=== PATIENT | female | born 1975 | race Hispanic/Latino ===

== ENCOUNTER 2017-07-03 07:56 | Emergency (ER) | payer OTHER ==
[~2017-07-03] VITALS: Ht 162.6 cm; Wt 90.7 kg
[2017-07-03] MEDS ORDERED: KETOROLAC TROMETHAMINE 30 MG/ML VIAL IV STA (08:29)
[2017-07-03] MEDS ORDERED: SODIUM CHLORIDE 0.9% 1000ML 1,000 ML IV STA (08:29)
[2017-07-03] MEDS ORDERED: ONDANSETRON HCL INJ 2 MG/ML VIAL IV STA (08:29)
[2017-07-03 08:56] LABS: BILIRUBIN,URINE 1+ (NEGATIVE); CLARITY,URINE HAZY (CLEAR); COLOR,URINE YELLOW (YELLOW); KETONES,URINE NEGATIVE (NEGATIVE); LEUKOCYTE ESTERASE ,URINE TRACE (NEGATIVE); NITRITE,URINE NEGATIVE (NEGATIVE); PROTEIN,URINE DIPSTICK NEGATIVE (NEGATIVE); URINE UROBILINOGEN 0.2 mg/dL (0.2 - 1)
[2017-07-03 09:18] LABS: BASOPHILS % 0.6 % (0.0-1.0); EOSINOPHILS # (AUTO) 0.1 (0.0-0.4); HEMATOCRIT 38.5 % (34.2-44.1); HEMOGLOBIN 12.8 g/dL (12.0-16.0); LYMPHOCYTES # (AUTO) 1.2 (1.0-3.2); LYMPHOCYTES % 24.7 % (18.0-39.1); MEAN CORPUSCULAR HEMOGLOBIN 29.6 pg (28-32); MEAN CORPUSCULAR HGB CONC 33.2 g/dL (31-35); MEAN CORPUSCULAR VOLUME 89.1 fL (81-99); MONOCYTES # (AUTO) 0.3 (0.2-0.8); MONOCYTES % 6.3 % (4.4-11.3); NEUTROPHILS # (AUTO) 3.2 (2.1-6.9); NEUTROPHILS % 66.2 % (38.7-80.0); PLATELET COUNT 269 x10e3/uL (140-360); RED BLOOD COUNT 4.32 x10e6/uL (3.6-5.1); RED CELL DISTRIBUTION WIDTH 13.6 % (11.7-14.4)
[2017-07-03 09:19] LABS: BACTERIA,URINE MODERATE /HPF; EPITHELIAL CELLS,URINE FEW /LPF; WBC,URINE (MAN) 0-5 /HPF (0-5)
[2017-07-03 09:35] LABS: ALANINE AMINOTRANSFERASE 15 IU/L (0-55); ALBUMIN 3.8 g/dL (3.5-5.0); ALBUMIN/GLOBULIN RATIO 1.3 (0.8-2.0); ALKALINE PHOSPHATASE 81 IU/L (40-150); ANION GAP 11.9 mmol/L (8-16); BLOOD UREA NITROGEN 12 mg/dL (7-26); BUN/CREATININE RATIO 13 (6-25); CALCIUM 8.8 mg/dL (8.4-10.2); CARBON DIOXIDE 22 mmol/L (22-29); CHLORIDE 110 mmol/L (98-107); CREATININE, SERUM 0.96 mg/dL (0.57-1.11); EST GLOMERULAR FILTRATION RATE > 60 ML/MIN (60-); GLUCOSE 95 mg/dL (74-118); POTASSIUM 3.9 mmol/L (3.5-5.1); SODIUM 140 mmol/L (136-145)
[2017-07-03] MEDS ORDERED: MORPHINE SULFATE 2 MG/ML SYR IV STA (09:54)
--- NOTE | 2017-07-03 10:18 | Diagnostic Imaging Report ---
PROCEDURE: CT ABDOMEN AND PELVIS WITHOUT CONTRAST TECHNIQUE: The abdomen and pelvis were scanned utilizing a multidetector helical scanner from the diaphragm to the lesser trochanter. No intravenous or oral contrast was administered as per physician request. Coronal and sagittal multiplanar reformations were obtained. COMPARISON: CT abdomen and pelvis 11/24/2016. INDICATIONS: RIGHT FLANK PAIN FINDINGS: ABSENCE OF INTRAVENOUS CONTRAST DECREASES SENSITIVITY FOR DETECTION OF FOCAL LESIONS AND VASCULAR PATHOLOGY. LOWER THORAX: Normal. HEPATOBILIARY: No focal hepatic lesions. No biliary ductal dilatation. Cholecystectomy. SPLEEN: No splenomegaly. PANCREAS: No focal masses or ductal dilatation. ADRENALS: No adrenal nodules. KIDNEYS/URETERS: No hydronephrosis, obstructing calculi, or solid mass lesions. The punctate calculi are present bilaterally. Stable left renal cysts. PELVIC ORGANS/BLADDER: Hysterectomy. Normal ovaries. Normal urinary bladder. PERITONEUM / RETROPERITONEUM: No free air or fluid. LYMPH NODES: No lymphadenopathy. VESSELS: Unremarkable. GI TRACT: No distention or wall thickening. Normal appendix. Moderate amount of retained feces limits intraluminally evaluation of the colon. BONES AND SOFT TISSUES: Unremarkable. IMPRESSION: Bilateral nonobstructing nephrolithiasis. Dictated by: Donnell Najera M.D. on 07/03/2017 at 10:27 Electronically approved by: Donnell Najera M.D. on 07/03/2017 at 10:27
[2017-07-03 11:06] VITALS: BP 119/65
== END 2017-07-03 11:17 | disposition home or self-care (01) ==
LOC: ER 07:56
DX: R10.31 Right lower quadrant pain (principal); N20.0 Calculus of kidney; N39.0 Urinary tract infection, site not specified
CPT/HCPCS: 36415; 74176; 80053; 81001; 81025; 85025; 87086; 87186; 99284; J1885; J2270; J2405; J7030

== ENCOUNTER 2017-07-30 08:25 | Emergency (ER) | payer OTHER ==
[~2017-07-30] VITALS: Ht 162.6 cm; Wt 95.3 kg
--- OUTSIDE RECORDS SUMMARY | 2017-07-30 08:27 | XMS REPORT ---
[facility] Address Unknown Phone Unavailable Care Team Providers Care Director Of Leadership Development Name Role Phone MARTA BARROW Unavailable Unavailable Problems This patient has no known problems. Allergies, Adverse Reactions, Alerts This patient has no known allergies or adverse reactions. Medications This patient has no known medications. Results Test Description Test Time Test Comments Text Results Atomic Results Result Comments CT ABDOMEN/PELVIS WO [place] [address] Patient Name: ANGELA ESPINOSA MR #: [id number] : 1975 Age/Sex: 41/F Req #: [id number] Adm Physician: Ordered by: MARTA BARROW MD Report #: [id number] Location: ER Room/Bed: Procedure: [id number] CT/CT ABDOMEN/PELVIS WO Exam Date: 07/03/17 Exam Time: 0920 REPORT STATUS: Signed PROCEDURE: CT ABDOMEN AND PELVIS WITHOUT CONTRAST TECHNIQUE: The abdomen and pelvis were scanned utilizing a multidetector helical scanner from the diaphragm to the lesser trochanter. No intravenous or oral contrast was administered as per physician request. Coronal and sagittal multiplanar reformations were obtained. COMPARISON: CT abdomen and pelvis 11/24/2016. INDICATIONS: RIGHT FLANK PAIN FINDINGS: ABSENCE OF INTRAVENOUS CONTRAST DECREASES SENSITIVITY FOR DETECTION OF FOCAL LESIONS AND VASCULAR PATHOLOGY. LOWER THORAX: Normal. HEPATOBILIARY: No focal hepatic lesions. No biliary ductal dilatation. Cholecystectomy. SPLEEN: No splenomegaly. PANCREAS: No focal masses or ductal dilatation. ADRENALS: No adrenal nodules. KIDNEYS/URETERS: No hydronephrosis, obstructing calculi, or solid mass lesions. The punctate calculi are present bilaterally. Stable left renal cysts. PELVIC ORGANS/BLADDER: Hysterectomy. Normal ovaries. Normal urinary bladder. PERITONEUM / RETROPERITONEUM: No free air or fluid. LYMPH NODES: No lymphadenopathy. VESSELS: Unremarkable. GI TRACT: No distention or wall thickening. Normal appendix. Moderate amount of retained feces limits intraluminally evaluation of the colon. BONES AND SOFT TISSUES: Unremarkable. IMPRESSION: Bilateral nonobstructing nephrolithiasis. Dictated by: Jarek Harry M.D. on 07/03/2017 at 10:27 Electronically approved by: Jarek Harry M.D. on 07/03/2017 at 10:27 Dictated By: JAREK HARRY MD 1027 Transcribed By: FAVIAN on 07/03/17 1027 COPY TO: MARTA BARROW MD
--- OUTSIDE RECORDS SUMMARY | 2017-07-30 08:27 | XMS REPORT | Continuity of Care Document ---
Author Author [facility] Organization [facility] Address 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 No 05/13/14 9:52am If yes, is advance directive on file with [facility]? No 05/13/14 9:52am If not on file with [facility] will patient provide a copy? No 05/13/14 9:52am Do you have a Directive to Physician? No 07/03/17 8:26am Do you have a Medical Power of Information Systems Security Analyst? No 07/03/17 8:26am Do you have an out of hospital Do Not Resuscitate Order? No 07/03/17 8:26am Do you have any special needs we should be aware of? No 07/03/17 8:26am Do you have a support person here with you today? Yes 07/03/17 8:26am Did patient receive Notice of Privacy Practices? Yes 07/03/17 8:26am Did patient receive patient rights and responsibilities? Yes 07/03/17 8:26am Problems No problem information available. Medications No known medications. Social History Smoking Status Start Date Stop Date Never Smoker Hospital Discharge Instructions No hospital discharge instruction information available. Plan of Care Discharge Date 07/03/17 11:17am Disposition HOME, SELF-CARE Condition at Discharge Stable Instructions/Education Provided Kidney Stones Urinary Tract Infection - Women Forms Provided Work/School Excuse Prescriptions See Medication Section Referrals Sean,Mary Order Date: Call for an appointment Additional Instructions/Education Take medication as prescribed Follow up with PCP in a couple of days Return to ER if worsening of symptoms Functional Status No functional status information available. Allergies, Adverse Reactions, Alerts No known allergies. Immunizations No immunization information available. Vital Signs Acute Vital Signs Vital Response Date/Time Pulse Pulse Rate (adult) 73 bpm (60 - 90) 07/03/2017 11:06am Respiratory Rate 18 bpm (12 - 24) 07/03/2017 11:06am Blood Pressure 119/65 mm Hg 07/03/2017 11:06am Height 5 ft 4 in 07/03/2017 8:12am Weight 200 lb 07/03/2017 8:12am Body Mass Index 34.3 kg/m^2 07/03/2017 8:12am Results Laboratory Results Test Name Result Units Flags Reference Collection Date/Time Result Date/ Time Comments White Blood Count 4.89 x10e3/uL 4.8-10.8 07/03/2017 9:05am 07/03/2017 9 :19am Red Blood Count 4.32 x10e6/uL 3.6-5.1 07/03/2017 9:05am 07/03/2017 9: 19am Hemoglobin 12.8 g/dL 12.0-16.0 07/03/2017 9:05am 07/03/2017 9:19am Hematocrit 38.5 % 34.2-44.1 07/03/2017 9:05am 07/03/2017 9:19am Mean Corpuscular Volume 89.1 fL 81-99 07/03/2017 9:05am 07/03/2017 9: 19am Mean Corpuscular Hemoglobin 29.6 pg 28-32 07/03/2017 9:05am 07/03/2017 9:19am Mean Corpuscular Hemoglobin Concent 33.2 g/dL 31-35 07/03/2017 9:05am 07/03/2017 9:19am Red Cell Distribution Width 13.6 % 11.7-14.4 07/03/2017 9:05am 2017 9:19am Platelet Count 269 x10e3/uL 140-360 07/03/2017 9:05am 07/03/2017 9: 19am Neutrophils (%) (Auto) 66.2 % 38.7-80.0 07/03/2017 9:05am 07/03/2017 9: 19am Lymphocytes (%) (Auto) 24.7 % 18.0-39.1 07/03/2017 9:05am 07/03/2017 9: 19am Monocytes (%) (Auto) 6.3 % 4.4-11.3 07/03/2017 9:05am 07/03/2017 9: 19am Eosinophils (%) (Auto) 2.0 % 0.0-6.0 07/03/2017 9:05am 07/03/2017 9: 19am Basophils (%) (Auto) 0.6 % 0.0-1.0 07/03/2017 9:05am 07/03/2017 9:19am IM GRANULOCYTES % 0.2 % 0.0-1.0 07/03/2017 9:05am 07/03/2017 9:19am Neutrophils # (Auto) 3.2 2.1-6.9 07/03/2017 9:05am 07/03/2017 9:19am Lymphocytes # (Auto) 1.2 1.0-3.2 07/03/2017 9:05am 07/03/2017 9:19am Monocytes # (Auto) 0.3 0.2-0.8 07/03/2017 9:05am 07/03/2017 9:19am Eosinophils # (Auto) 0.1 0.0-0.4 07/03/2017 9:05am 07/03/2017 9:19am Basophils # (Auto) 0.0 0.0-0.1 07/03/2017 9:05am 07/03/2017 9:19am Absolute Immature Granulocyte (auto 0.01 x10e3/uL 0-0.1 07/03/2017 9: 05am 07/03/2017 9:19am Urine Color YELLOW YELLOW 07/03/2017 8:14am 07/03/2017 8:58am Urine Clarity HAZY CLEAR 07/03/2017 8:14am 07/03/2017 8:58am Urine Specific [place] 1.025 1.010-1.025 07/03/2017 8:14am 2017 8:58am Urine pH 5 5 - 7 07/03/2017 8:14am 07/03/2017 8:58am Urine Leukocyte Esterase TRACE H NEGATIVE 07/03/2017 8:14am 2017 8:58am Urine Nitrite NEGATIVE NEGATIVE 07/03/2017 8:14am 07/03/2017 8:58am Urine Protein NEGATIVE NEGATIVE 07/03/2017 8:14am 07/03/2017 8:58am Urine Glucose (UA) NEGATIVE NEGATIVE 07/03/2017 8:14am 07/03/2017 8: 58am Urine Ketones NEGATIVE NEGATIVE 07/03/2017 8:14am 07/03/2017 8:58am Urine Urobilinogen 0.2 mg/dL 0.2 - 1 07/03/2017 8:14am 07/03/2017 8: 58am Urine Bilirubin 1+ H NEGATIVE 07/03/2017 8:14am 07/03/2017 8:58am Urine Blood NEGATIVE NEGATIVE 07/03/2017 8:14am 07/03/2017 8:58am Urine WBC 0-5 /HPF 0-5 07/03/2017 8:14am 07/03/2017 9:20am Urine RBC NONE /HPF 0-5 07/03/2017 8:14am 07/03/2017 9:20am Urine Bacteria MODERATE /HPF H NONE 07/03/2017 8:14am 07/03/2017 9:20am Urine Epithelial Cells FEW /LPF NONE 07/03/2017 8:14am 07/03/2017 9: 20am Urine Test NEGATIVE NEGATIVE 07/03/2017 8:14am 07/03/2017 8 :58am Sodium Level 140 mmol/L 136-145 07/03/2017 9:05am 07/03/2017 9:45am Potassium Level 3.9 mmol/L 3.5-5.1 07/03/2017 9:05am 07/03/2017 9:45am Chloride Level 110 mmol/L H 98-107 07/03/2017 9:05am 07/03/2017 9:45am Carbon Dioxide Level 22 mmol/L 22-29 07/03/2017 9:0507/03/2017 9: 45am Anion Gap 11.9 mmol/L 8-16 07/03/2017 9:0507/03/2017 9:45am Blood Urea Nitrogen 12 mg/dL 7-26 07/03/2017 9:07/03/2017 9:45am Creatinine 0.96 mg/dL 0.57-1.11 07/03/2017 9:0507/03/2017 9:45am BUN/Creatinine Ratio 13 6-25 07/03/2017 9:07/03/2017 9:45am Estimat Glomerular Filtration Rate > 60 ML/MIN 60- 07/03/2017 9: 9:45am Ranges were taken from the National Kidney Disease Education Program and the National Kidney Foundation literature. Reference ranges: 60 or greater: Normal 16-59 (for 3 consecutive months): Chronic kidney disease 15 or less: Kidney failure Glucose Level 95 mg/dL 74-118 07/03/2017 9:07/03/2017 9:45am Calcium Level 8.8 mg/dL 8.4-10.2 07/03/2017 9:07/03/2017 9:45am Total Bilirubin 0.3 mg/dL 0.2-1.2 07/03/2017 9:07/03/2017 9:45am Aspartate Amino Transf (AST/SGOT) 14 IU/L 5-34 07/03/2017 9:2017 9:45am Alanine Aminotransferase (ALT/SGPT) 15 IU/L 0-55 07/03/2017 9:07/2017 9:45am Total Protein 6.7 g/dL 6.5-8.1 07/03/2017 9:07/03/2017 9:45am Albumin 3.8 g/dL 3.5-5.0 07/03/2017 9:07/03/2017 9:45am Globulin 2.9 g/dL 2.3-3.5 07/03/2017 9:07/03/2017 9:45am Albumin/Globulin Ratio 1.3 0.8-2.0 07/03/2017 9:07/03/2017 9: 45am Alkaline Phosphatase 81 IU/L 40-150 07/03/2017 9:05am 07/03/2017 9: 45am Procedures Procedure Status Date Provider(s) CT of abdomen and pelvis without contrast Active 11/24/[address] of abdomen and pelvis without contrast Active 07/03/17 MARTA BARROW MD Encounters Encounter Location Arrival/Admit Date Discharge/Depart Date Attending Provider Departed Emergency Room [facility] 07/03/17 7:56am 11:17am MARTA BARROW MD Departed Emergency Room [facility] 11/24/16 6:59pm 11:11pm MARTA BARROW MD
[2017-07-30] MEDS ORDERED: ONDANSETRON HCL INJ 2 MG/ML VIAL IV STA (09:12)
[2017-07-30] MEDS ORDERED: KETOROLAC TROMETHAMINE 30 MG/ML VIAL IV STA (09:12)
[2017-07-30] MEDS ORDERED: SODIUM CHLORIDE 0.9% 1000ML 1,000 ML IV ONE (09:15)
[2017-07-30 09:26] LABS: BASOPHILS % 0.6 % (0.0-1.0); EOSINOPHILS # (AUTO) 0.2 (0.0-0.4); EOSINOPHILS % 2.3 % (0.0-6.0); HEMATOCRIT 36.8 % (34.2-44.1); HEMOGLOBIN 12.6 g/dL (12.0-16.0); LYMPHOCYTES # (AUTO) 1.3 (1.0-3.2); MEAN CORPUSCULAR HEMOGLOBIN 30.1 pg (28-32); MEAN CORPUSCULAR HGB CONC 34.2 g/dL (31-35); MEAN CORPUSCULAR VOLUME 87.8 fL (81-99); MONOCYTES # (AUTO) 0.3 (0.2-0.8); MONOCYTES % 4.1 % (4.4-11.3); NEUTROPHILS # (AUTO) 4.8 (2.1-6.9); NEUTROPHILS % 72.8 % (38.7-80.0); PLATELET COUNT 272 x10e3/uL (140-360); RED BLOOD COUNT 4.19 x10e6/uL (3.6-5.1); RED CELL DISTRIBUTION WIDTH 13.6 % (11.7-14.4)
[2017-07-30 09:27] LABS: BILIRUBIN,URINE NEGATIVE (NEGATIVE); CLARITY,URINE CLOUDY (CLEAR); COLOR,URINE YELLOW (YELLOW); KETONES,URINE NEGATIVE (NEGATIVE); LEUKOCYTE ESTERASE ,URINE NEGATIVE (NEGATIVE); PROTEIN,URINE DIPSTICK NEGATIVE (NEGATIVE); URINE UROBILINOGEN 0.2 mg/dL (0.2 - 1)
[2017-07-30 09:41] LABS: ALANINE AMINOTRANSFERASE 16 IU/L (0-55); ALBUMIN 3.4 g/dL (3.5-5.0); ALBUMIN/GLOBULIN RATIO 1.1 (0.8-2.0); ALKALINE PHOSPHATASE 86 IU/L (40-150); ANION GAP 14.4 mmol/L (8-16); BLOOD UREA NITROGEN 8 mg/dL (7-26); BUN/CREATININE RATIO 10 (6-25); CALCIUM 8.5 mg/dL (8.4-10.2); CARBON DIOXIDE 22 mmol/L (22-29); CHLORIDE 108 mmol/L (98-107); CREATININE, SERUM 0.84 mg/dL (0.57-1.11); EST GLOMERULAR FILTRATION RATE > 60 ML/MIN (60-); GLUCOSE 172 mg/dL (74-118); POTASSIUM 3.4 mmol/L (3.5-5.1); SODIUM 141 mmol/L (136-145)
[2017-07-30 09:45] LABS: NITRITE,URINE POSITIVE (NEGATIVE)
[2017-07-30 09:53] LABS: BACTERIA,URINE MANY /HPF; EPITHELIAL CELLS,URINE FEW /LPF; RBC,URINE 0-5 /HPF (0-5); TRANSITIONAL EPI CELLS,URINE FEW
--- NOTE | 2017-07-30 10:07 | Diagnostic Imaging Report ---
PROCEDURE: CT ABDOMEN AND PELVIS WITHOUT CONTRAST COMPARISON:[facility], CT, CT ABDOMEN/PELVIS WO, 07/03/2017, 9:15. INDICATIONS:Left-sided back pain with history of renal stones. TECHNIQUE: Stone protocol Volumetric CT abdomen and pelvis. No intravenous or enteric contrast. Multiplanar reformatted images. DLP: 817.87 FINDINGS: Bibasilar subsegmental atelectasis and interstitial scar. Lung bases otherwise clear. No pleural effusions. Normal heart size. Liver: Normal Gallbladder: Cholecystectomy. No bile duct dilation. Pancreas: Normal Spleen: Normal Adrenal glands: Normal Urinary bladder: Normal Uterus and adnexa: Hysterectomy Kidneys: Right: 2 mm stone at the right mid segment. Normal ureter and collecting system. Left: 2 mm to 3 mm stones at the left inferior and mid segments. Questionable tiny (less than 2 mm) high attenuation debris at the left ureterovesicular junction (image 165, series 3) without ureteral obstruction. 1 cm exophytic nodule with attenuation suggesting a simple cyst. Bowel: Normal caliber. Normal appendix. Peritoneum: Normal Vasculature: Normal caliber. Left retroaortic renal vein. Lymph nodes: Normal. Skeleton: Intact. Bone islands at L5. Soft tissues: 1.6 cm fat containing supraumbilical hernia (image 80, series 400); 1 cm right to midline abdominal hernia. Abdominis rectus diastases. Otherwise, normal. CONCLUSION: Bilateral nonobstructive nephrolithiasis. There is questionable calcified debris measuring less than 2 mm in the distal left ureter which may reflect stone debris. No ureteral obstruction. Dictated by: Kirby Britton M.D. on 07/30/2017 at 10:08 Electronically approved by: Kirby Britton M.D. on 07/30/2017 at 10:08
[2017-07-30] MEDS ORDERED: HYDROMORPHONE 1MG/1ML INJ IV STA (10:23)
[2017-07-30] MEDS ORDERED: CIPROFLOXACIN 400 MG/D5W 200ML 200 ML IV STA (10:30)
== END 2017-07-30 11:50 | disposition home or self-care (01) ==
LOC: ER 08:25
DX: R10.32 Left lower quadrant pain (principal); R11.2 Nausea with vomiting, unspecified; N20.1 Calculus of ureter; N30.90 Cystitis, unspecified without hematuria
CPT/HCPCS: 36415; 74176; 80053; 81001; 85025; 96360; 96374; 99284; J0744; J1170; J1885; J2405; J7030

== ENCOUNTER 2017-08-05 08:13 | Emergency (ER) | payer OTHER ==
[~2017-08-05] VITALS: Ht 162.6 cm; Wt 99.8 kg
--- OUTSIDE RECORDS SUMMARY | 2017-08-05 08:16 | XMS REPORT | Continuity of Care Document ---
Author Author [facility] Organization [facility] Address [address] [place] [address] Phone Unavailable Care Team Providers Care Extractive Metallurgist Name Role Phone NONSTAFF PCP Unavailable Insurance Providers Guarantor Angela Espinosa Address [address] [place] [address] Email [email or web address] Payer [employer] Policy Number [id number] Subscriber's Name ArjunAngela Yaron Relationship 18 Self / Same As Patient Effective Date 16 Advance Directives Directive Response Recorded Date/Time Does the patient have an advance directive? No 05/13/14 9:52am If yes, is advance directive on file with [facility]? No 05/13/14 9:52am If not on file with [facility] will patient provide a copy? No 05/13/14 9:52am Do you have a Directive to Physician? No 07/30/17 8:43am Do you have a Medical Power of Insurance Clerk? No 07/30/17 8:43am Do you have an out of hospital Do Not Resuscitate Order? No 07/30/17 8:43am Do you have any special needs we should be aware of? No 07/30/17 8:43am Do you have a support person here with you today? No 07/30/17 8:43am Did patient receive Notice of Privacy Practices? Yes 07/30/17 8:43am Did patient receive patient rights and responsibilities? Yes 07/30/17 8:43am Problems No problem information available. Medications No known medications. Social History Smoking Status Start Date Stop Date Former smoker Hospital Discharge Instructions No hospital discharge instruction information available. Plan of Care Discharge Date 07/30/17 11:50am Disposition HOME, SELF-CARE Condition at Discharge Stable Instructions/Education Provided Abdominal Pain - Adult Forms Provided Work/School Excuse Prescriptions See Medication Section Referrals Sean,Mary Functional Status No functional status information available. Allergies, Adverse Reactions, Alerts No known allergies. Immunizations No immunization information available. Vital Signs Acute Vital Signs Vital Response Date/Time Pulse Pulse Rate (adult) 73 bpm (60 - 90) 07/03/2017 11:06am Respiratory Rate 18 bpm (12 - 24) 07/03/2017 11:06am Blood Pressure 119/65 mm Hg 07/03/2017 11:06am Height 5 ft 4 in 07/30/2017 8:42am Weight 210 lb 07/30/2017 8:42am Body Mass Index 36.0 kg/m^2 07/30/2017 8:42am Results Laboratory Results Test Name Result Units Flags Reference Collection Date/Time Result Date/ Time Comments Urine Test NEGATIVE NEGATIVE 07/03/2017 8:14am 07/03/2017 8 :58am White Blood Count 6.60 x10e3/uL 4.8-10.8 07/30/2017 9:12am 07/30/2017 9 :44am Red Blood Count 4.19 x10e6/uL 3.6-5.1 07/30/2017 9:12am 07/30/2017 9: 44am Hemoglobin 12.6 g/dL 12.0-16.0 07/30/2017 9:1207/30/2017 9:44am Hematocrit 36.8 % 34.2-44.1 07/30/2017 9:1207/30/2017 9:44am Mean Corpuscular Volume 87.8 fL 81-99 07/30/2017 9:12am 07/30/2017 9: 44am Mean Corpuscular Hemoglobin 30.1 pg 28-32 07/30/2017 9:12am 07/30/2017 9:44am Mean Corpuscular Hemoglobin Concent 34.2 g/dL 31-35 07/30/2017 9:12am 07/30/2017 9:44am Red Cell Distribution Width 13.6 % 11.7-14.4 07/30/2017 9:122017 9:44am Platelet Count 272 x10e3/uL 140-360 07/30/2017 9:07/30/2017 9: 44am Neutrophils (%) (Auto) 72.8 % 38.7-80.0 07/30/2017 9:07/30/2017 9: 44am Lymphocytes (%) (Auto) 20.0 % 18.0-39.1 07/30/2017 9:07/30/2017 9: 44am Monocytes (%) (Auto) 4.1 % L 4.4-11.3 07/30/2017 9:07/30/2017 9: 44am Eosinophils (%) (Auto) 2.3 % 0.0-6.0 07/30/2017 9:07/30/2017 9: 44am Basophils (%) (Auto) 0.6 % 0.0-1.0 07/30/2017 9:07/30/2017 9:44am IM GRANULOCYTES % 0.2 % 0.0-1.0 07/30/2017 9:07/30/2017 9:44am Neutrophils # (Auto) 4.8 2.1-6.9 07/30/2017 9:07/30/2017 9:44am Lymphocytes # (Auto) 1.3 1.0-3.2 07/30/2017 9:07/30/2017 9:44am Monocytes # (Auto) 0.3 0.2-0.8 07/30/2017 9:07/30/2017 9:44am Eosinophils # (Auto) 0.2 0.0-0.4 07/30/2017 9:07/30/2017 9:44am Basophils # (Auto) 0.0 0.0-0.1 07/30/2017 9:07/30/2017 9:44am Absolute Immature Granulocyte (auto 0.01 x10e3/uL 0-0.1 07/30/2017 9: 1207/30/2017 9:44am Urine Color YELLOW YELLOW 07/30/2017 9:07/30/2017 9:45am Urine Clarity CLOUDY H CLEAR 07/30/2017 9:1207/30/2017 9:45am Urine Specific [place] 1.020 1.010-1.025 07/30/2017 9:122017 9:45am Urine pH 6 5 - 7 07/30/2017 9:1207/30/2017 9:45am Urine Leukocyte Esterase NEGATIVE NEGATIVE 07/30/2017 9:122017 9:45am Urine Nitrite POSITIVE H NEGATIVE 07/30/2017 9:1207/30/2017 9:45am Urine Protein NEGATIVE NEGATIVE 07/30/2017 9:12am 07/30/2017 9:45am Urine Glucose (UA) NEGATIVE NEGATIVE 07/30/2017 9:1207/30/2017 9: 45am Urine Ketones NEGATIVE NEGATIVE 07/30/2017 9:1207/30/2017 9:45am Urine Urobilinogen 0.2 mg/dL 0.2 - 1 07/30/2017 9:1207/30/2017 9: 45am Urine Bilirubin NEGATIVE NEGATIVE 07/30/2017 9:1207/30/2017 9: 45am Urine Blood NEGATIVE NEGATIVE 07/30/2017 9:1207/30/2017 9:45am Urine WBC 6-10 /HPF H 0-5 07/30/2017 9:1207/30/2017 9:53am Urine RBC 0-5 /HPF 0-5 07/30/2017 9:12am 07/30/2017 9:53am Urine Bacteria MANY /HPF H NONE 07/30/2017 9:1207/30/2017 9:53am Urine Epithelial Cells FEW /LPF NONE 07/30/2017 9:1207/30/2017 9: 53am Urine Transitional Epithelial Cells FEW H NONE 07/30/2017 9:1207/30 9:53am Sodium Level 141 mmol/L 136-145 07/30/2017 9:1207/30/2017 9:43am Potassium Level 3.4 mmol/L L 3.5-5.1 07/30/2017 9:12am 07/30/2017 9: 43am Chloride Level 108 mmol/L H 98-107 07/30/2017 9:12am 07/30/2017 9:43am Carbon Dioxide Level 22 mmol/L 22-29 07/30/2017 9:07/30/2017 9: 43am Anion Gap 14.4 mmol/L 8-16 07/30/2017 9:07/30/2017 9:43am Blood Urea Nitrogen 8 mg/dL 7-07/30/2017 9:07/30/2017 9:43am Creatinine 0.84 mg/dL 0.57-1.11 07/30/2017 9:07/30/2017 9:43am BUN/Creatinine Ratio 10 6-25 07/30/2017 9:07/30/2017 9:43am Estimat Glomerular Filtration Rate > 60 ML/MIN 60- 07/30/2017 9: 9:43am Ranges were taken from the National Kidney Disease Education Program and the National Kidney Foundation literature. Reference ranges: 60 or greater: Normal 16-59 (for 3 consecutive months): Chronic kidney disease 15 or less: Kidney failure Glucose Level 172 mg/dL H 74-118 07/30/2017 9:07/30/2017 9:43am Calcium Level 8.5 mg/dL 8.4-10.2 07/30/2017 9:07/30/2017 9:43am Total Bilirubin 0.3 mg/dL 0.2-1.2 07/30/2017 9:07/30/2017 9:43am Aspartate Amino Transf (AST/SGOT) 12 IU/L 5-34 07/30/2017 9:2017 9:43am Alanine Aminotransferase (ALT/SGPT) 16 IU/L 0-55 07/30/2017 9:06/2017 9:43am Total Protein 6.4 g/dL L 6.5-8.1 07/30/2017 9:07/30/2017 9:43am Albumin 3.4 g/dL L 3.5-5.0 07/30/2017 9:07/30/2017 9:43am Globulin 3.0 g/dL 2.3-3.5 07/30/2017 9:1207/30/2017 9:43am Albumin/Globulin Ratio 1.1 0.8-2.0 07/30/2017 9:07/30/2017 9: 43am Alkaline Phosphatase 86 IU/L 40-150 07/30/2017 9:12am 07/30/2017 9: 43am Microbiology Results Procedure Source Organism/Result Collection Date/Time Result Date/Time Result Status Urine Culture Urine,Clean Catch KLEBSIELLA PNEUMONIAE 07/03/2017 8:14am 7:15am Final Procedures Procedure Status Date Provider(s) CT of abdomen and pelvis without contrast Active 11/24/[address] of abdomen and pelvis without contrast Active 07/03/[address] of abdomen and pelvis without contrast Active 07/30/17 MADELINE MCKEON MD Encounters Encounter Location Arrival/Admit Date Discharge/Depart Date Attending Provider Departed Emergency Room [facility] 07/30/17 8:25am 11:50am MADELINE MCKEON MD Departed Emergency Room [facility] 07/03/17 7:56am 11:17am MARTA BARROW MD Departed Emergency Room [facility] 11/24/16 6:59pm 11:11pm MARTA BARROW MD
[2017-08-05] MEDS ORDERED: KETOROLAC TROMETHAMINE 30 MG/ML VIAL IV STA (09:00)
[2017-08-05 09:20] LABS: BASOPHILS % 0.5 % (0.0-1.0); EOSINOPHILS # (AUTO) 0.1 (0.0-0.4); EOSINOPHILS % 2.4 % (0.0-6.0); HEMATOCRIT 37.8 % (34.2-44.1); HEMOGLOBIN 12.8 g/dL (12.0-16.0); LYMPHOCYTES # (AUTO) 1.5 (1.0-3.2); LYMPHOCYTES % 27.7 % (18.0-39.1); MEAN CORPUSCULAR HEMOGLOBIN 29.8 pg (28-32); MEAN CORPUSCULAR HGB CONC 33.9 g/dL (31-35); MEAN CORPUSCULAR VOLUME 88.1 fL (81-99); MONOCYTES # (AUTO) 0.4 (0.2-0.8); MONOCYTES % 7.4 % (4.4-11.3); NEUTROPHILS # (AUTO) 3.4 (2.1-6.9); NEUTROPHILS % 61.6 % (38.7-80.0); PLATELET COUNT 249 x10e3/uL (140-360); RED BLOOD COUNT 4.29 x10e6/uL (3.6-5.1); RED CELL DISTRIBUTION WIDTH 13.3 % (11.7-14.4)
[2017-08-05 09:28] LABS: BILIRUBIN,URINE NEGATIVE (NEGATIVE); CLARITY,URINE CLEAR (CLEAR); COLOR,URINE YELLOW (YELLOW); KETONES,URINE NEGATIVE (NEGATIVE); LEUKOCYTE ESTERASE ,URINE NEGATIVE (NEGATIVE); NITRITE,URINE NEGATIVE (NEGATIVE); PROTEIN,URINE DIPSTICK NEGATIVE (NEGATIVE); URINE UROBILINOGEN 0.2 mg/dL (0.2 - 1)
[2017-08-05 09:33] LABS: ANION GAP 13.5 mmol/L (8-16); BLOOD UREA NITROGEN 12 mg/dL (7-26); BUN/CREATININE RATIO 13 (6-25); CALCIUM 8.5 mg/dL (8.4-10.2); CARBON DIOXIDE 20 mmol/L (22-29); CHLORIDE 110 mmol/L (98-107); CREATININE, SERUM 0.89 mg/dL (0.57-1.11); EST GLOMERULAR FILTRATION RATE > 60 ML/MIN (60-); GLUCOSE 86 mg/dL (74-118); POTASSIUM 3.5 mmol/L (3.5-5.1); SODIUM 140 mmol/L (136-145)
[2017-08-05 09:46] LABS: EPITHELIAL CELLS,URINE RARE /LPF; TRANSITIONAL EPI CELLS,URINE RARE; WBC,URINE (MAN) 0-5 /HPF (0-5)
[2017-08-05] MEDS ORDERED: ONDANSETRON HCL INJ 2 MG/ML VIAL IV STA (09:52)
[2017-08-05] MEDS ORDERED: MORPHINE SULFATE 2 MG/ML SYR IV STA (09:52)
--- NOTE | 2017-08-05 10:01 | Diagnostic Imaging Report ---
PROCEDURE: CT ABDOMEN AND PELVIS WITHOUT CONTRAST TECHNIQUE: The abdomen and pelvis were scanned utilizing a multidetector helical scanner from the diaphragm to the lesser trochanter. No IV contrast was administered as per physician request. Coronal and sagittal multiplanar reformations were obtained. COMPARISON: CT abdomen and pelvis 07/30/2017. INDICATIONS: KIDNEY STONES RIGHT SIDE FINDINGS: ABSENCE OF INTRAVENOUS CONTRAST DECREASES SENSITIVITY FOR DETECTION OF FOCAL LESIONS AND VASCULAR PATHOLOGY. LOWER THORAX: Left lung base atelectasis. HEPATOBILIARY: No focal hepatic lesions. No biliary ductal dilatation. Cholecystectomy. SPLEEN: No splenomegaly. PANCREAS: No focal masses or ductal dilatation. ADRENALS: No adrenal nodules. KIDNEYS/URETERS: No hydronephrosis, stones, or solid mass lesions. Multiple cysts are present in the left kidney. Punctate calculus is present in the inferior pole of the right kidney. Two separate calculi are present in the inferior pole of the left kidney, the largest measuring 3.0 mm. PELVIC ORGANS/BLADDER: Hysterectomy. Bilateral small ovarian cysts. Normal urinary bladder. PERITONEUM / RETROPERITONEUM: No free air or fluid. LYMPH NODES: No lymphadenopathy. VESSELS: Retroaortic left renal vein. GI TRACT: No distention or wall thickening. The appendix is normal. Moderate amount of retained feces limits intraluminal evaluation of the colon. BONES AND SOFT TISSUES: Normal. IMPRESSION: Bilateral nonobstructive nephrolithiasis. Dictated by: Donnell Najera M.D. on 08/05/2017 at 10:01 Electronically approved by: Donnell Najera M.D. on 08/05/2017 at 10:01
[2017-08-05 11:22] VITALS: BP 116/76
[2017-08-05] MEDS ORDERED: DICYCLOMINE HCL 20 MG/2 ML VIAL IM ONE (11:30)
== END 2017-08-05 12:28 | disposition home or self-care (01) ==
LOC: ER 08:13
DX: M54.5 Low back pain (principal); R11.2 Nausea with vomiting, unspecified; R10.31 Right lower quadrant pain; S39.012A Strain of muscle, fascia and tendon of lower back, initial encounter
CPT/HCPCS: 36415; 74176; 80048; 81001; 85025; 96374; 99284; J0500; J1885; J2270; J2405

== ENCOUNTER 2017-08-20 08:01 | Inpatient (IN) | payer OTHER ==
[~2017-08-20] VITALS: Ht 162.6 cm; Wt 99.8 kg
--- OUTSIDE RECORDS SUMMARY | 2017-08-20 08:03 | XMS REPORT | Continuity of Care Document ---
Author Author [facility] Organization [facility] Address [address] [place] [address] Phone Unavailable Care Team Providers Care Chain Saw Driver Name Role Phone NONSTAFF PCP Unavailable Insurance Providers Guarantor Angela Espinosa Address [address] [place] [address] Email [email or web address] Payer [employer] Policy Number [id number] Subscriber's Name Angela Espinosa Yaron Relationship 18 Self / Same As Patient Effective Date 16 Advance Directives Directive Response Recorded Date/Time Does the patient have an advance directive? No 05/13/14 9:52am If yes, is advance directive on file with [facility]? No 05/13/14 9:52am If not on file with [facility] will patient provide a copy? No 05/13/14 9:52am Do you have a Directive to Physician? No 08/05/17 8:22am Do you have a Medical Power of Occupational Therapy Aides Teacher? No 08/05/17 8:22am Do you have an out of hospital Do Not Resuscitate Order? No 08/05/17 8:22am Do you have any special needs we should be aware of? No 08/05/17 8:22am Do you have a support person here with you today? No 08/05/17 8:22am Did patient receive Notice of Privacy Practices? Yes 08/05/17 8:22am Did patient receive patient rights and responsibilities? Yes 08/05/17 8:22am Problems No problem information available. Medications No known medications. Social History Smoking Status Start Date Stop Date Former smoker Hospital Discharge Instructions No hospital discharge instruction information available. Plan of Care Discharge Date 08/05/17 12:28pm Disposition HOME, SELF-CARE Condition at Discharge Stable Instructions/Education Provided Back Pain Constipation - Adult Forms Provided Work/School Excuse Prescriptions See Medication Section Additional Instructions/Education ACUTE LOW BACK PAIN PRESCRIPTION FOR MIRLAX TAKE PRESCRIBED FOR CONSTIPATION AND INCREASE WATER INTAKE. NAPRAOSYN TAKE PRESCRIBED FOR PAIN, TYLENOL #3 TAKE DIRECTED FOR PAIN, AND FLEXERIL TAKE DIRECTED FOR PAIN FOLLOW UP WITH DOCTOR WITHIN A WEEK, AND RETURN TO THE ER FOR WORSENING OF SYMPTOMS. FOLLOW UP PAIN MANAGEMENT DOCTOR Functional Status No functional status information available. Allergies, Adverse Reactions, Alerts No known allergies. Immunizations No immunization information available. Vital Signs Acute Vital Signs Vital Response Date/Time Pulse Pulse Rate (adult) 69 bpm (60 - 90) 08/05/2017 11:22am Respiratory Rate 16 bpm (12 - 24) 08/05/2017 11:22am Blood Pressure 116/76 mm Hg 08/05/2017 11:22am Height 5 ft 4 in 08/05/2017 8:22am Weight 220 lb 08/05/2017 8:22am Body Mass Index 37.8 kg/m^2 08/05/2017 8:22am Results Laboratory Results Test Name Result Units Flags Reference Collection Date/Time Result Date/ Time Comments Urine Test NEGATIVE NEGATIVE 07/03/2017 8:14am 07/03/2017 8 :58am Total Bilirubin 0.3 mg/dL 0.2-1.2 07/30/2017 9:12am 07/30/2017 9:43am Aspartate Amino Transf (AST/SGOT) 12 IU/L 5-34 07/30/2017 9:12am 2017 9:43am Alanine Aminotransferase (ALT/SGPT) 16 IU/L 0-55 07/30/2017 9:12am 06/2017 9:43am Total Protein 6.4 g/dL L 6.5-8.1 07/30/2017 9:12am 07/30/2017 9:43am Albumin 3.4 g/dL L 3.5-5.0 07/30/2017 9:12am 07/30/2017 9:43am Globulin 3.0 g/dL 2.3-3.5 07/30/2017 9:12am 07/30/2017 9:43am Albumin/Globulin Ratio 1.1 0.8-2.0 07/30/2017 9:1207/30/2017 9: 43am Alkaline Phosphatase 86 IU/L 40-150 07/30/2017 9:12am 07/30/2017 9: 43am White Blood Count 5.52 x10e3/uL 4.8-10.8 08/05/2017 8:50am 08/05/2017 9 :26am Red Blood Count 4.29 x10e6/uL 3.6-5.1 08/05/2017 8:50am 08/05/2017 9: 26am Hemoglobin 12.8 g/dL 12.0-16.0 08/05/2017 8:50am 08/05/2017 9:26am Hematocrit 37.8 % 34.2-44.1 08/05/2017 8:50am 08/05/2017 9:26am Mean Corpuscular Volume 88.1 fL 81-99 08/05/2017 8:50am 08/05/2017 9: 26am Mean Corpuscular Hemoglobin 29.8 pg 28-32 08/05/2017 8:50am 08/05/2017 9:26am Mean Corpuscular Hemoglobin Concent 33.9 g/dL 31-35 08/05/2017 8:50am 08/05/2017 9:26am Red Cell Distribution Width 13.3 % 11.7-14.4 08/05/2017 8:50am 2017 9:26am Platelet Count 249 x10e3/uL 140-360 08/05/2017 8:50am 08/05/2017 9: 26am Neutrophils (%) (Auto) 61.6 % 38.7-80.0 08/05/2017 8:50am 08/05/2017 9: 26am Lymphocytes (%) (Auto) 27.7 % 18.0-39.1 08/05/2017 8:50am 08/05/2017 9: 26am Monocytes (%) (Auto) 7.4 % 4.4-11.3 08/05/2017 8:50am 08/05/2017 9: 26am Eosinophils (%) (Auto) 2.4 % 0.0-6.0 08/05/2017 8:50am 08/05/2017 9: 26am Basophils (%) (Auto) 0.5 % 0.0-1.0 08/05/2017 8:50am 08/05/2017 9:26am IM GRANULOCYTES % 0.4 % 0.0-1.0 08/05/2017 8:50am 08/05/2017 9:26am Neutrophils # (Auto) 3.4 2.1-6.9 08/05/2017 8:50am 08/05/2017 9:26am Lymphocytes # (Auto) 1.5 1.0-3.2 08/05/2017 8:50am 08/05/2017 9:26am Monocytes # (Auto) 0.4 0.2-0.8 08/05/2017 8:50am 08/05/2017 9:26am Eosinophils # (Auto) 0.1 0.0-0.4 08/05/2017 8:50am 08/05/2017 9:26am Basophils # (Auto) 0.0 0.0-0.1 08/05/2017 8:50am 08/05/2017 9:26am Absolute Immature Granulocyte (auto 0.02 x10e3/uL 0-0.1 08/05/2017 8: 50am 08/05/2017 9:26am Urine Color YELLOW YELLOW 08/05/2017 8:29am 08/05/2017 9:31am Urine Clarity CLEAR CLEAR 08/05/2017 8:29am 08/05/2017 9:31am Urine Specific [place] 1.015 1.010-1.025 08/05/2017 8:29am 2017 9:31am Urine pH 6 5 - 7 08/05/2017 8:29am 08/05/2017 9:31am Urine Leukocyte Esterase NEGATIVE NEGATIVE 08/05/2017 8:29am 2017 9:31am Urine Nitrite NEGATIVE NEGATIVE 08/05/2017 8:29am 08/05/2017 9:31am Urine Protein NEGATIVE NEGATIVE 08/05/2017 8:29am 08/05/2017 9:31am Urine Glucose (UA) NEGATIVE NEGATIVE 08/05/2017 8:29am 08/05/2017 9: 31am Urine Ketones NEGATIVE NEGATIVE 08/05/2017 8:29am 08/05/2017 9:31am Urine Urobilinogen 0.2 mg/dL 0.2 - 1 08/05/2017 8:29am 08/05/2017 9: 31am Urine Bilirubin NEGATIVE NEGATIVE 08/05/2017 8:29am 08/05/2017 9: 31am Urine Blood NEGATIVE NEGATIVE 08/05/2017 8:29am 08/05/2017 9:31am Urine WBC 0-5 /HPF 0-5 08/05/2017 8:29am 08/05/2017 9:46am Urine RBC NONE /HPF 0-5 08/05/2017 8:29am 08/05/2017 9:46am Urine Bacteria NONE /HPF NONE 08/05/2017 8:29am 08/05/2017 9:46am Urine Epithelial Cells RARE /LPF NONE 08/05/2017 8:29am 08/05/2017 9: 46am Urine Transitional Epithelial Cells RARE H NONE 08/05/2017 8:29am 11/2017 9:46am Sodium Level 140 mmol/L 136-145 08/05/2017 8:50am 08/05/2017 9:44am Potassium Level 3.5 mmol/L 3.5-5.1 08/05/2017 8:50am 08/05/2017 9:44am Chloride Level 110 mmol/L H 98-107 08/05/2017 8:50am 08/05/2017 9:44am Carbon Dioxide Level 20 mmol/L L 22-29 08/05/2017 8:50am 08/05/2017 9: 44am Anion Gap 13.5 mmol/L 8-16 08/05/2017 8:50am 08/05/2017 9:44am Blood Urea Nitrogen 12 mg/dL 7-08/05/2017 8:50am 08/05/2017 9:44am Creatinine 0.89 mg/dL 0.57-1.11 08/05/2017 8:50am 08/05/2017 9:44am BUN/Creatinine Ratio 13 6-25 08/05/2017 8:50am 08/05/2017 9:44am Estimat Glomerular Filtration Rate > 60 ML/MIN 60- 08/05/2017 8:50am 9:44am Ranges were taken from the National Kidney Disease Education Program and the National Kidney Foundation literature. Reference ranges: 60 or greater: Normal 16-59 (for 3 consecutive months): Chronic kidney disease 15 or less: Kidney failure Glucose Level 86 mg/dL 74-118 08/05/2017 8:50am 08/05/2017 9:44am Calcium Level 8.5 mg/dL 8.4-10.2 08/05/2017 8:50am 08/05/2017 9:44am Microbiology Results Procedure Source Organism/Result Collection Date/Time Result Date/Time Result Status Urine Culture Urine,Clean Catch KLEBSIELLA PNEUMONIAE 07/03/2017 8:14am 7:15am Final Procedures Procedure Status Date Provider(s) CT of abdomen and pelvis without contrast Active 11/24/[address] of abdomen and pelvis without contrast Active 07/03/[address] of abdomen and pelvis without contrast Active 07/30/[address] of abdomen and pelvis without contrast Active 08/05/17 MADELINE GILBERT MD Encounters Encounter Location Arrival/Admit Date Discharge/Depart Date Attending Provider Departed Emergency Room [facility] 08/05/17 8:13am 12:28pm MADELINE GILBERT MD Departed Emergency Room [facility] 07/30/17 8:25am 11:50am MADELINE MCKEON MD Departed Emergency Room [facility] 07/03/17 7:56am 11:17am MARTA BARROW MD Departed Emergency Room [facility] 11/24/16 6:59pm 11:11pm MARTA BARROW MD
[2017-08-20] MEDS ORDERED: ONDANSETRON HCL INJ 2 MG/ML VIAL IV STA (08:15)
[2017-08-20] MEDS ORDERED: SODIUM CHLORIDE 0.9% 1000ML 1,000 ML IV STA (08:15)
[2017-08-20] MEDS ORDERED: MORPHINE SULFATE INJ 4 MG/ML INJ IV STA (08:15)
[2017-08-20] MEDS ORDERED: MORPHINE SULFATE 2 MG/ML SYR ONE (08:31)
[2017-08-20 08:39] LABS: BASOPHILS # (AUTO) 0.1 (0.0-0.1); BASOPHILS % 0.8 % (0.0-1.0); EOSINOPHILS # (AUTO) 0.1 (0.0-0.4); HEMATOCRIT 39.3 % (34.2-44.1); HEMOGLOBIN 13.4 g/dL (12.0-16.0); LYMPHOCYTES # (AUTO) 1.4 (1.0-3.2); LYMPHOCYTES % 21.4 % (18.0-39.1); MEAN CORPUSCULAR HEMOGLOBIN 29.8 pg (28-32); MEAN CORPUSCULAR HGB CONC 34.1 g/dL (31-35); MEAN CORPUSCULAR VOLUME 87.3 fL (81-99); MONOCYTES # (AUTO) 0.4 (0.2-0.8); MONOCYTES % 5.7 % (4.4-11.3); NEUTROPHILS # (AUTO) 4.5 (2.1-6.9); NEUTROPHILS % 69.8 % (38.7-80.0); PLATELET COUNT 298 x10e3/uL (140-360); RED CELL DISTRIBUTION WIDTH 13.6 % (11.7-14.4)
[2017-08-20 08:55] LABS: ALANINE AMINOTRANSFERASE 18 IU/L (0-55); ALBUMIN 3.7 g/dL (3.5-5.0); ALBUMIN/GLOBULIN RATIO 1.2 (0.8-2.0); ALKALINE PHOSPHATASE 90 IU/L (40-150); AMYLASE 284 U/L (25-125); ANION GAP 11.7 mmol/L (8-16); BLOOD UREA NITROGEN 12 mg/dL (7-26); BUN/CREATININE RATIO 14 (6-25); CALCIUM 8.7 mg/dL (8.4-10.2); CARBON DIOXIDE 21 mmol/L (22-29); CHLORIDE 111 mmol/L (98-107); CREATININE, SERUM 0.84 mg/dL (0.57-1.11); EST GLOMERULAR FILTRATION RATE > 60 ML/MIN (60-); GLUCOSE 121 mg/dL (74-118); LIPASE 699 U/L (8-78); POTASSIUM 3.7 mmol/L (3.5-5.1); SODIUM 140 mmol/L (136-145)
[2017-08-20] MEDS: KETOROLAC TROMETHAMINE 30 MG/ML VIAL IV PRN ×2 (09:06→23:22)
[2017-08-20] MEDS ORDERED: DIATRIZOATE MEGL/DIATRIZOA SOD 30 ML BTL PO ONE (09:08)
[2017-08-20] MEDS ORDERED: PROMETHAZINE 12.5MG/ NACL 0.9% 12.5 MG/50 ML BAG IV ONE (09:15)
[2017-08-20] MEDS ORDERED: HYDROMORPHONE 1MG/1ML INJ IV STA (09:37)
[2017-08-20] MEDS ORDERED: PROMETHAZINE HCL (IM) 25 MG/ML VIAL IV PRN (09:45)
[2017-08-20] MEDS: ONDANSETRON HCL INJ 2 MG/ML VIAL IV PRN ×3 (11:05→20:24)
[2017-08-20] MEDS: HYDROMORPHONE 1MG/1ML INJ IV PRN ×3 (11:06→20:24)
[2017-08-20] MEDS: SODIUM CHLORIDE 0.9% 1000ML 1,000 ML IV SCH ×3 (11:10→21:50)
[2017-08-20] MEDS: METRONIDAZOLE 500MG/NS 100ML 100 ML IV SCH ×2 (11:12→16:59)
[2017-08-20] MEDS ORDERED: SODIUM CHLORIDE 0.9% 50ML 50 ML ONE (11:20)
[2017-08-20] MEDS ORDERED: IOPAMIDOL 370 MG/ML 200 ML INFUS..BTL INJ ONE (11:21)
--- NOTE | 2017-08-20 11:37 | Diagnostic Imaging Report ---
PROCEDURE: CT ABDOMEN AND PELVIS WITH CONTRAST TECHNIQUE: The abdomen and pelvis were scanned utilizing a multidetector helical scanner from the diaphragm to the lesser trochanter after the IV administration of 100 cc of Isovue 370 no oral contrast was administered. Coronal and sagittal multiplanar reformations were obtained. COMPARISON: CT abdomen and pelvis 08/05/2017. INDICATIONS: RIGHT SIDED PAIN FINDINGS: LOWER THORAX: Normal. HEPATOBILIARY: No focal hepatic lesions. No biliary ductal dilatation. Cholecystectomy. SPLEEN: No splenomegaly. PANCREAS: No focal masses or ductal dilatation. ADRENALS: No adrenal nodules. KIDNEYS/URETERS: No hydronephrosis, stones, or solid mass lesions. Simple cyst of the left kidney. PELVIC ORGANS/BLADDER: Hysterectomy. Normal ovaries. Normal urinary bladder. PERITONEUM / RETROPERITONEUM: No free air or fluid. LYMPH NODES: No lymphadenopathy. VESSELS: Retroaortic left renal vein. GI TRACT: No distention or wall thickening. Normal appendix. Moderate amount of retained feces limits intraluminal evaluation of the colon. BONES AND SOFT TISSUES: Unremarkable. IMPRESSION: No acute abnormality of the abdomen and pelvis. Dictated by: Donnell Najera M.D. on 08/20/2017 at 11:37 Electronically approved by: Donnell Najera M.D. on 08/20/2017 at 11:37
[2017-08-20] MEDS: CEFOXITIN SOD 1 GM VIAL IV SCH ×2 (12:31→16:59)
[2017-08-20 13:46] VITALS: BP 113/64
[2017-08-20] MEDS ORDERED: CEFOXITIN 1GM/ DEXTROSE 50ML 50 ML IV SCH (14:00)
[2017-08-20 14:46] VITALS: BP 113/64
[2017-08-20 15:54] LABS: CHOL/HDL RATIO 3.6 (3.0-3.6)
[2017-08-20 17:07] VITALS: BP 106/56
--- NOTE | 2017-08-20 17:24 | History and Physical ---
PRIMARY CARE PHYSICIAN: Dr. Estrada. CHIEF COMPLAINT: Abdominal pain, nausea and vomiting. HISTORY OF PRESENT ILLNESS: This is a 41-year-old woman with a history of obesity, nausea and vomiting and abdominal pain. She was found to have acute pancreatitis. She was admitted for evaluation and management. PAST MEDICAL HISTORY: Nephrolithiasis, obesity. PAST SURGICAL HISTORY: Cholecystectomy, hysterectomy, umbilical hernia repair. ALLERGIES: PER ELECTRONIC MEDICAL RECORDS. FAMILY HISTORY AND SOCIAL HISTORY: The patient is . She has 4 children. Occasional alcohol. No cigarettes or illicits. MEDICATIONS: Per electronic medical records. REVIEW OF SYSTEMS: Denies any dizziness or chest pain. PHYSICAL EXAMINATION VITAL SIGNS: Reviewed. GENERAL APPEARANCE: A tired-appearing woman resting in the bed. HEENT: Anicteric. Pupils responsive to light. No oral lesions. No sinus tenderness. CARDIOVASCULAR: Normal sinus rhythm. LUNGS: Normal breath sounds. ABDOMEN: Soft and nondistended. She has tenderness in the epigastric region. EXTREMITIES: There is no edema or calf tenderness. NEUROLOGIC: Alert and oriented x3. Moving all extremities. SKIN: Dry. PSYCHIATRIC: Flat affect. LABS: Reviewed. MEDICATIONS: Reviewed. ASSESSMENT AND PLAN: A 41-year-old woman with: 1. Acute pancreatitis. N.p.o. status. IV fluids increased to 200. Obtain lipase in the morning. Consider a liquid diet tomorrow based on the findings. 2. Metabolic acidosis. Rehydrate . 3. Obesity. BMI is 37.8. Screen for diabetes and then will plan our next point. 4. Abdominal pain. Give p.r.n. pain medications. 5. Prophylaxis: Use SCDs and Pepcid. DISPOSITION: Monitor closely and follow up labs in the morning. Job#: [id number]
[2017-08-20 20:00] VITALS: BP 132/62
[2017-08-21] VITALS (8 sets, daily range): BP systolic 107–120; BP diastolic 54–64
[2017-08-21] MEDS: METRONIDAZOLE 500MG/NS 100ML 100 ML IV SCH ×5 (00:25→23:52)
[2017-08-21] MEDS: ONDANSETRON HCL INJ 2 MG/ML VIAL IV PRN ×4 (00:34→22:10)
[2017-08-21] MEDS: HYDROMORPHONE 1MG/1ML INJ IV PRN ×6 (00:35→22:10)
[2017-08-21] MEDS: CEFOXITIN SOD 1 GM VIAL IV SCH ×3 (02:31→17:29)
[2017-08-21] MEDS: SODIUM CHLORIDE 0.9% 1000ML 1,000 ML IV SCH ×5 (02:50→23:39)
[2017-08-21] MEDS: PROMETHAZINE 12.5MG/ NACL 0.9% 50 ML IV PRN ×2 (04:13→18:07)
[2017-08-21 07:47] LABS: BASOPHILS % 0.7 % (0.0-1.0); EOSINOPHILS # (AUTO) 0.1 (0.0-0.4); EOSINOPHILS % 2.3 % (0.0-6.0); HEMATOCRIT 34.5 % (34.2-44.1); HEMOGLOBIN 11.4 g/dL (12.0-16.0); LYMPHOCYTES # (AUTO) 1.5 (1.0-3.2); LYMPHOCYTES % 25.7 % (18.0-39.1); MEAN CORPUSCULAR HEMOGLOBIN 29.5 pg (28-32); MEAN CORPUSCULAR VOLUME 89.4 fL (81-99); MONOCYTES # (AUTO) 0.4 (0.2-0.8); MONOCYTES % 6.6 % (4.4-11.3); NEUTROPHILS # (AUTO) 3.7 (2.1-6.9); NEUTROPHILS % 64.5 % (38.7-80.0); PLATELET COUNT 259 x10e3/uL (140-360); RED BLOOD COUNT 3.86 x10e6/uL (3.6-5.1); RED CELL DISTRIBUTION WIDTH 13.7 % (11.7-14.4)
[2017-08-21 08:04] LABS: ALANINE AMINOTRANSFERASE 15 IU/L (0-55); ALBUMIN 3.1 g/dL (3.5-5.0); ALKALINE PHOSPHATASE 71 IU/L (40-150); AMYLASE 68 U/L (25-125); ANION GAP 8.1 mmol/L (8-16); BILIRUBIN,DIRECT 0.1 mg/dL (0.0-0.5); BLOOD UREA NITROGEN 11 mg/dL (7-26); BUN/CREATININE RATIO 14 (6-25); CALCIUM 7.8 mg/dL (8.4-10.2); CARBON DIOXIDE 23 mmol/L (22-29); CHLORIDE 111 mmol/L (98-107); CREATININE, SERUM 0.78 mg/dL (0.57-1.11); EST GLOMERULAR FILTRATION RATE > 60 ML/MIN (60-); GLUCOSE 97 mg/dL (74-118); LIPASE 43 U/L (8-78); POTASSIUM 4.1 mmol/L (3.5-5.1); SODIUM 138 mmol/L (136-145)
[2017-08-21] MEDS: KETOROLAC TROMETHAMINE 30 MG/ML VIAL IV PRN ×2 (08:04→15:58)
[2017-08-22] VITALS (8 sets, daily range): BP systolic 116–130; BP diastolic 57–64
[2017-08-22] MEDS: HYDROMORPHONE 1MG/1ML INJ IV PRN ×5 (02:35→22:42)
[2017-08-22] MEDS: ONDANSETRON HCL INJ 2 MG/ML VIAL IV PRN ×4 (02:35→19:46)
[2017-08-22] MEDS: CEFOXITIN SOD 1 GM VIAL IV SCH ×3 (02:35→17:12)
[2017-08-22] MEDS: METRONIDAZOLE 500MG/NS 100ML 100 ML IV SCH ×3 (05:48→17:12)
[2017-08-22] MEDS: SODIUM CHLORIDE 0.9% 1000ML 1,000 ML IV SCH ×4 (05:48→21:14)
[2017-08-22] MEDS: KETOROLAC TROMETHAMINE 30 MG/ML VIAL IV PRN ×3 (05:53→19:46)
[2017-08-22 07:20] LABS: BASOPHILS % 0.6 % (0.0-1.0); EOSINOPHILS # (AUTO) 0.2 (0.0-0.4); EOSINOPHILS % 2.6 % (0.0-6.0); HEMATOCRIT 31.7 % (34.2-44.1); HEMOGLOBIN 10.6 g/dL (12.0-16.0); LYMPHOCYTES # (AUTO) 1.9 (1.0-3.2); LYMPHOCYTES % 26.1 % (18.0-39.1); MEAN CORPUSCULAR HEMOGLOBIN 29.4 pg (28-32); MEAN CORPUSCULAR HGB CONC 33.4 g/dL (31-35); MEAN CORPUSCULAR VOLUME 87.8 fL (81-99); MONOCYTES # (AUTO) 0.5 (0.2-0.8); MONOCYTES % 6.5 % (4.4-11.3); NEUTROPHILS # (AUTO) 4.6 (2.1-6.9); NEUTROPHILS % 63.9 % (38.7-80.0); PLATELET COUNT 219 x10e3/uL (140-360); RED BLOOD COUNT 3.61 x10e6/uL (3.6-5.1); RED CELL DISTRIBUTION WIDTH 13.4 % (11.7-14.4)
[2017-08-22 07:45] LABS: ALANINE AMINOTRANSFERASE 13 IU/L (0-55); ALBUMIN 2.8 g/dL (3.5-5.0); ALBUMIN/GLOBULIN RATIO 1.3 (0.8-2.0); ALKALINE PHOSPHATASE 75 IU/L (40-150); AMYLASE 51 U/L (25-125); BLOOD UREA NITROGEN 8 mg/dL (7-26); BUN/CREATININE RATIO 11 (6-25); CALCIUM 7.5 mg/dL (8.4-10.2); CARBON DIOXIDE 23 mmol/L (22-29); CHLORIDE 110 mmol/L (98-107); CREATININE, SERUM 0.75 mg/dL (0.57-1.11); EST GLOMERULAR FILTRATION RATE > 60 ML/MIN (60-); GLUCOSE 90 mg/dL (74-118); LIPASE 22 U/L (8-78); SODIUM 136 mmol/L (136-145)
[2017-08-22] MEDS ORDERED: BISACODYL 10 MG SUPP PR PRN (10:15)
[2017-08-22] MEDS ORDERED: BISACODYL 10 MG SUPP PR ONE (11:00)
--- NOTE | 2017-08-22 11:46 | Progress Note ---
DATE: August 22, 2017 MEDICINE PROGRESS NOTE TIME: 10:00 a.m. SUBJECTIVE: No acute events overnight. Patient continues with complaint of right upper quadrant pain. REVIEW OF SYSTEMS: Patient denies chest pain or shortness of breath. Nausea and vomiting are absent today. Patient reports no bowel movements x3 days. PHYSICAL EXAMINATION VITAL SIGNS: Temperature 97.6 orally, pulse 68, respirations 18, and pulse ox 94% on room air. GENERAL: This is a tired-appearing middle-aged woman, resting in bed. HEENT: Atraumatic. PERRLA. Oral mucosa dry, yet intact, and without sinus tenderness. CARDIOVASCULAR: Normal sinus rhythm without extra cardiac sounds appreciated. LUNGS: Bilateral breath sounds clear to auscultation. ABDOMEN: Soft and not distended. The patient is with tenderness in the right upper quadrant epigastric region with some involuntary guarding at right upper quadrant. Deep palpation was deferred. EXTREMITIES: The patient is without edema or calf tenderness. SKIN: Dry. PSYCHIATRIC: Patient with flat affect. NEUROLOGICAL: Alert and oriented x3 and moves all extremities with equal bilateral service center technician strength. LABS: Counts this morning this day, WBC 7.23, H and H 10.6 and 31.7 respectively, and platelets of 219. Chemistries this a.m., sodium 136, potassium 4.0, chloride 110, CO2 23, gap decreased at 7, BUN 8, creatinine 0.73, and normal calcium at 7.5, corrected to 8.8. Total protein down to 5. Cholesterol noted to be 27. Amylase and lipase this day are 51 and 52 respectively. MEDICATIONS 1. Mefoxin 1 gram q. 8 hours IV. 2. Dilaudid 1.5 mg q. 4 hours p.r.n. severe pain. 3. Zofran 4 mg q. 4 hours p.r.n. IV nausea. 4. Toradol 30 mg q. 6 hours p.r.n. IV pain. 5. Flagyl q. 6 hours IV. 6. Additionally, the patient continues with IV NS at 200 mL/hour. ASSESSMENT AND PLAN: This is a 41-year-old woman with: 1. Acute pancreatitis. Attempt to provide a clear liquid diet yesterday failed per nursing staff, so we will continue with IV fluids and noted GI consult is pending. Amylase and lipase within normal limits and continue to trend down. 2. Metabolic acidosis, gap as above. Continue fluids. Pending GI consult. 3. Obesity, BMI of 37.8. Hemoglobin A1c is noted to be 4.9; however, patient with hyperlipidemia. We will defer lipid management pending resolution of pancreatitis. 4. Abdominal pain, p.r.n. pain medications as above. Patient reports control to between 4 and 5 after administration. 5. Prophylaxis, sequential compression devices. 6. Constipation: We will provide Dulcolax suppository x1 today and then p.r.n. 7. Disposition: Continue IV hydration as above and follow up with GI recommendations. Dictated By: Jordyn Queen NP Job#: [id number] CHRISTOPHER
[2017-08-22] MEDS: PROMETHAZINE 12.5MG/ NACL 0.9% 50 ML IV PRN ×2 (15:20→22:56)
[2017-08-22] MEDS ORDERED: METHYLNALTREXONE BROMIDE 12 MG/0.6 ML VIAL SQ ONE (18:30)
[2017-08-22] MEDS: SENNA-S TABLET PO SCH (21:31)
[2017-08-23] VITALS (8 sets, daily range): BP systolic 116–136; BP diastolic 18–66
--- NOTE | 2017-08-23 02:25 | Consultation ---
DATE OF CONSULTATION: GI CONSULT NOTE REASON FOR CONSULT: Acute idiopathic pancreatitis. HISTORY OF PRESENTING ILLNESS: A 41-year-old female with obese body habitus got admitted with acute onset of upper abdominal discomfort associated with some nausea and vomiting. She has been experiencing this pain for last 2 days. She does not drink alcohol. Her last alcohol intake was 2 years ago. Not a smoker. She is status post cholecystectomy. She does not use any NSAIDs. No prior history of peptic ulcer disease. When she arrived in the emergency room, she was noted to be hemodynamically stable, afebrile. Blood work revealed lipase level mildly elevated to 699. Electrolytes and peripheral cell counts within normal limits. CT of the abdomen and pelvis performed with IV and oral contrast showed normal pancreas and other solid organs. She is status post cholecystectomy. Moderate amount of stool was noted in the colon, limiting intraluminal visualization of colon. No acute intra-abdominal pathology detected. She was admitted with working diagnosis of acute pancreatitis, cause unclear. Liver enzymes were noted normal. REVIEW OF SYSTEMS: A 12-point system reviewed, symptomatology is limited to GI system. PAST MEDICAL HISTORY: Obesity, nephrolithiasis. PAST SURGICAL HISTORY: Umbilical hernia repair, total abdominal hysterectomy, and cholecystectomy. 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 SOCIAL HISTORY: , lives with her . She has 4 children. No smoking, alcohol, or any illicit drug use. HOME MEDICATIONS: None. INPATIENT MEDICATIONS: Bisacodyl, hydromorphone, Ketorolac, Zofran, promethazine, intravenous metronidazole as well as cefoxitin. ALLERGIES: NO KNOWN DRUG ALLERGIES. PHYSICAL EXAMINATION VITAL SIGNS: Temperature 97.5, pulse 66, respirations 18, blood pressure 130/64, and oxygen saturation 91% on room air. GENERAL: Not in any apparent distress. Obese body habitus. HEENT: Moist mucous membranes. Anicteric sclerae. NECK: Thick and short. CVS: S1 and S2, regular. LUNGS: Bilaterally grossly clear. ABDOMEN: Obese. No localized palpable tenderness. No rebound, rigidity, or guarding. Positive bowel sounds. EXTREMITIES: Warm. No leg edema. LABS: WBC 7.23, hemoglobin 10.6, hematocrit 31.7, MCV 97.8, and platelet count 219,000. Sodium 136, potassium 4.0, chloride 110, bicarb 23, BUN 8, and creatinine 0.75. Liver enzymes showed total bilirubin 0.3, AST 14, ALT 13, and alkaline phosphatase 75. Amylase 284, lipase 699. Repeat amylase and lipase within [address] of the abdomen and pelvis with IV and oral contrast showed no acute abnormality in the abdomen and pelvis. Pancreas normal. Moderate amount of retained feces limits the intraluminal evaluation of the colon. IMPRESSION: Acute abdomen with elevated amylase and lipase. However, pancreas looks normal on the computerized tomography scan. She has no risk factors for pancreatitis. Her triglyceride level was never checked. PLAN: I will discontinue with the antibiotic as it is not indicated. I do not suspect any active pancreatitis at this time. Therefore, will allow her clear and advance the diet as tolerated. Minimize the use of opioids. Daily scheduled bowel regimen as patient has a lot of moderate amount of retained stool in the colon. Give her a trial of Relistor. We will also check a triglyceride level. Patient is being reassured. If patient is tolerating oral feeds, then she can be discharged home from GI standpoint. I have given her my business card. I will follow in my office in 2 weeks. Job#: [id number] CF SAMMY
[2017-08-23] MEDS: SODIUM CHLORIDE 0.9% 1000ML 1,000 ML IV SCH ×4 (04:12→19:25)
[2017-08-23] MEDS: ONDANSETRON HCL INJ 2 MG/ML VIAL IV PRN ×2 (04:26→13:51)
[2017-08-23] MEDS: KETOROLAC TROMETHAMINE 30 MG/ML VIAL IV PRN ×2 (04:26→11:50)
[2017-08-23] MEDS: HYDROMORPHONE 1MG/1ML INJ IV PRN ×2 (07:00→13:51)
[2017-08-23] MEDS: PROMETHAZINE 12.5MG/ NACL 0.9% 50 ML IV PRN (07:00)
[2017-08-23 07:35] LABS: ALANINE AMINOTRANSFERASE 16 IU/L (0-55); ALBUMIN 2.8 g/dL (3.5-5.0); ALBUMIN/GLOBULIN RATIO 1.2 (0.8-2.0); ALKALINE PHOSPHATASE 72 IU/L (40-150); ANION GAP 8.7 mmol/L (8-16); BLOOD UREA NITROGEN 8 mg/dL (7-26); BUN/CREATININE RATIO 11 (6-25); CALCIUM 8.2 mg/dL (8.4-10.2); CARBON DIOXIDE 23 mmol/L (22-29); CHLORIDE 114 mmol/L (98-107); CREATININE, SERUM 0.71 mg/dL (0.57-1.11); EST GLOMERULAR FILTRATION RATE > 60 ML/MIN (60-); GLUCOSE 101 mg/dL (74-118); POTASSIUM 3.7 mmol/L (3.5-5.1); SODIUM 142 mmol/L (136-145)
[2017-08-23] MEDS ORDERED: POLYETHYLENE GLYCOL 3350 17 GM PACK PO SCH (09:00)
--- NOTE | 2017-08-23 11:40 | Progress Note ---
DATE: August 23, 2017 MEDICINE PROGRESS NOTE TIME: 10:00 a.m. SUBJECTIVE: No acute events overnight. Patient continues with the complaint of right upper quadrant pain. REVIEW OF SYSTEMS: Patient denies chest pain or shortness of breath, nausea, vomiting, or diarrhea. Patient did report 1 small bowel movements yesterday and additional BM this morning, not quantified. PHYSICAL EXAMINATION VITAL SIGNS: Temperature 97.9, pulse 67, respirations 18, blood pressure 118/81, and pulse ox 92% on room air. GENERAL APPEARANCE: This is a tired-appearing female, lying supine in bed. HEENT: Normocephalic, atraumatic. Oral mucosa moist and intact. No sinus tenderness present. CARDIOVASCULAR: Normal sinus rhythm auscultated without clicks, murmurs, or rubs. LUNGS: Bilateral breath sounds clear to auscultation and diminished. ABDOMEN: Soft, not distended, tenderness in the right upper quadrant and epigastric region with involuntary guarding at right upper quadrant. EXTREMITIES: The patient is without edema or calf tenderness. SKIN: Dry. PSYCHIATRIC: Flat affect. NEUROLOGICAL: Moves all extremities with equal bilateral board stacker strength. LABS: Sodium this morning 142, potassium 3.7, chloride 114, CO2 23, gap normal at 8.7, BUN 8, GFR greater than 16, and calcium 8.2, corrected to 8.8. Protein increasing at 5.1 and albumin is 2.8. Last lipid panel on August 20 indicates triglycerides of 113, cholesterol 227, LDL 141, and HDL 63. Previous amylase and lipase within normal limits. WBC this morning 7.23, hemoglobin and hematocrit 10.6 and 31.7 respectively, and platelets within normal limits at . MEDICATIONS 1. MiraLax 17 grams p.o. daily, initiated this morning. 2. Q. 6 hours p.r.n. Dilaudid 1.5 mg. 3. Zofran 4 mg q. 4 hours p.r.n. nausea. 4. Toradol 30 mg q.6 hours p.r.n. IV pain. 5. Senokot 2 at bedtime. 6. NS reduced to 100 mL/hour. 7. P.r.n. Dulcolax suppository. ASSESSMENT AND PLAN: This is a 41-year-old woman with: 1. Acute pancreatitis, resolved per GI. Patient is tolerating advanced soft diet this morning. We will reduce IV fluids and continue with advancing diet. GI consult noted. 2. Metabolic acidosis, resolved. 3. Obesity, BMI of 37.8. Hemoglobin A1c managed, triglycerides within normal limits; however, hypercholesterolemia noted. Dietary counseling provided as an outpatient. 4. Abdominal pain, p.r.n. medications adjusted as above per GI. 5. Prophylaxis, sequential compression devices. 6. Constipation: Previous abdominopelvic CT exam limited due to stool. Additional bowel regimen added. Results are pending. 7. Disposition: Continue advancing diet. P.r.n. pain medications. Discharge planning with followup with GI in 2 weeks. Dictated By: Jordyn Queen NP Job#: [id number] CHRISTOPHER
[2017-08-23 11:57] LABS: BILIRUBIN,URINE NEGATIVE (NEGATIVE); CLARITY,URINE CLEAR (CLEAR); COLOR,URINE YELLOW (YELLOW); KETONES,URINE NEGATIVE (NEGATIVE); LEUKOCYTE ESTERASE ,URINE NEGATIVE (NEGATIVE); NITRITE,URINE NEGATIVE (NEGATIVE); PROTEIN,URINE DIPSTICK NEGATIVE (NEGATIVE); URINE UROBILINOGEN 0.2 mg/dL (0.2 - 1)
[2017-08-23 12:10] LABS: EPITHELIAL CELLS,URINE MODERATE /LPF
--- NOTE | 2017-08-23 13:32 | Progress Note ---
DATE: August 23, 2017 GI PROGRESS NOTE SUBJECTIVE: Patient still did not have any bowel movement. She was given Relistor, MiraLax, as well as Senna with Docusate yesterday. She continues to have lower abdominal discomfort. She is tolerating full liquid diet. REVIEW OF SYSTEMS: GENERAL: No fever or chills. CVS: No chest pain or palpitation. RESPIRATORY: No cough or expectoration. MEDICATIONS: Reviewed, as per JUL. She is getting ketorolac, MiraLax 17 grams in 1 glass of water daily, Dilaudid 1 mg every 6 hours IV, Zofran 4 mg every 4 hours IV, Senna with Docusate 2 pills at bedtime, normal saline at 100 mL an hour, and Dulcolax rectal suppositories as needed. PHYSICAL EXAMINATION VITAL SIGNS: Temperature 98.2, pulse 52, respirations 18, blood pressure 129/63, and oxygen saturation 98% on room air. GENERAL: Not in any apparent distress. Obese body habitus. HEENT: Oral mucosa is moist. Anicteric sclerae. CVS: S1 and S2 regular. LUNGS: Bilaterally grossly clear. ABDOMEN: Soft, nondistended, and obese. Lower quadrant tenderness on deep palpation without rebound, rigidity, or guarding. Positive bowel sounds. EXTREMITIES: Warm. No leg edema. LABS: Sodium 142, potassium 3.9, chloride 114, bicarb 23, BUN 8, and creatinine 0.71. Amylase and lipase level had normalized yesterday. Liver enzymes normal. IMPRESSION 1. Acute idiopathic pancreatitis, which was suggested earlier during admission. I do not think the patient has acute pancreatitis. The lipase level, which was noted to be elevated, could be coming from the GI tract. 2. Constipation, moderate amount of stool noted in colon. PLAN: From GI standpoint, will do abdominal x-ray to check for stool load. Will give her GoLYTELY about 1 to 2 liters to flush out the retained stool. Discontinue Zofran. Minimize the use of opioids. I also did a rectal exam today, and the patient does not have any fecal impaction, empty rectal vault, no palpable mass, and no blood on the gloved finger. Job#: [id number] CH[facility]STOPHER [facility]
--- NOTE | 2017-08-23 13:40 | Diagnostic Imaging Report ---
EXAM: ABDOMEN-1VIEW (KUB) DATE: 08/23/2017 12:17 PM INDICATION: \S\constipation, check stool load \[id number] \S\1325 COMPARISON: None FINDINGS: Cholecystectomy clips. Nonspecific bowel gas pattern. Stool burden not excessive. No acute osseous findings. IMPRESSION: No acute findings. Signed by: Dr. Yovani Pope MD on 08/23/2017 1:37 PM
[2017-08-23] MEDS: POLYETHYLENE GLYCOL 3350 17 GM PACK PO SCH (16:13)
[2017-08-23] MEDS ORDERED: SODIUM CHLORIDE 0.9% 50ML 50 ML ONE (20:25)
[2017-08-23] MEDS ORDERED: IOPAMIDOL 370 MG/ML 200 ML INFUS..BTL INJ ONE (20:25)
--- NOTE | 2017-08-23 21:07 | Diagnostic Imaging Report ---
EXAM: CT ABDOMEN W DATE: 08/23/2017 5:21 PM Time stamp on Exam: 2030 hours INDICATION: Worsening right upper quadrant pain COMPARISON: CT of the abdomen and pelvis August 20, 2017 TECHNIQUE: The abdomen was scanned using a multidetector helical scanner. Coronal and sagittal reformations were obtained. Routine protocol performed. IV Contrast: 100 cc Isovue-370 Oral Contrast: Water CTDIvol has been reviewed. It is below the limits set by the Radiation Protocol Committee (RPC). FINDINGS: LOWER THORAX: Bibasilar atelectasis and trace bilateral pleural effusions. Interval development of septal thickening. LIVER: No masses BILIARY: Cholecystectomy without ductal dilation. SPLEEN: No masses PANCREAS: No masses ADRENALS: No nodules KIDNEYS: Symmetric enhancement. No hydronephrosis. Punctate nonobstructing stones bilaterally better seen on prior noncontrast CT. Simple cyst measuring 1.2 cm left interpolar region. GI TRACT: No distention, wall thickening or evidence of obstruction in the partially visualized bowel. Partially visualized normal appendix. VESSELS: Unremarkable PERITONEUM/RETROPERITONEUM: No free air or fluid LYMPH NODES: No lymphadenopathy SOFT TISSUES: Unremarkable BONES: No suspicious bone lesions. IMPRESSION: 1. No acute findings in the CT of the abdomen. 2. Interval mild fluid overload as manifested by new interstitial edema and trace pleural effusions. Signed by: Dr. Nila Lawler M.D. on 08/23/2017 9:03 PM
[2017-08-23] MEDS: SENNA-S TABLET PO SCH (21:16)
[2017-08-23] MEDS: CYCLOBENZAPRINE HCL 10 MG TAB PO SCH (21:16)
[2017-08-23] MEDS ORDERED: HYDROMORPHONE 1MG/1ML INJ IV PRN (22:00)
[2017-08-24 02:57] VITALS: BP 138/62
[2017-08-24 04:00] VITALS: BP 130/84
[2017-08-24] MEDS: KETOROLAC TROMETHAMINE 30 MG/ML VIAL IV PRN (04:49)
[2017-08-24] MEDS: SODIUM CHLORIDE 0.9% 1000ML 1,000 ML IV SCH (05:25)
[2017-08-24] MEDS ORDERED: BISA PO (06:53)
[2017-08-24] MEDS ORDERED: [UNRECOGNIZED DRUG - OTHER] PO (06:53)
[2017-08-24] MEDS ORDERED: ZOFRAN ODT4 MG PO (06:53)
[2017-08-24] MEDS ORDERED: TYLENOL WITH C1 EACH PO (06:53)
[2017-08-24] MEDS ORDERED: CYCLOBENZAPRINE10 MG PO (06:53)
[2017-08-24] MEDS ORDERED: MIRALAX17 GM PO (06:53)
[2017-08-24 08:00] LABS: BASOPHILS % 0.4 % (0.0-1.0); EOSINOPHILS # (AUTO) 0.2 (0.0-0.4); EOSINOPHILS % 2.3 % (0.0-6.0); LYMPHOCYTES # (AUTO) 1.6 (1.0-3.2); LYMPHOCYTES % 17.2 % (18.0-39.1); MEAN CORPUSCULAR HEMOGLOBIN 29.6 pg (28-32); MEAN CORPUSCULAR HGB CONC 33.3 g/dL (31-35); MEAN CORPUSCULAR VOLUME 88.7 fL (81-99); MONOCYTES # (AUTO) 0.4 (0.2-0.8); MONOCYTES % 4.7 % (4.4-11.3); NEUTROPHILS # (AUTO) 6.9 (2.1-6.9); NEUTROPHILS % 74.9 % (38.7-80.0); PLATELET COUNT 282 x10e3/uL (140-360); RED BLOOD COUNT 4.06 x10e6/uL (3.6-5.1); RED CELL DISTRIBUTION WIDTH 13.3 % (11.7-14.4)
[2017-08-24 08:17] VITALS: BP 138/63
[2017-08-24 08:24] LABS: ALANINE AMINOTRANSFERASE 22 IU/L (0-55); ALBUMIN 3.3 g/dL (3.5-5.0); ALBUMIN/GLOBULIN RATIO 1.2 (0.8-2.0); ALKALINE PHOSPHATASE 85 IU/L (40-150); ANION GAP 8.7 mmol/L (8-16); BLOOD UREA NITROGEN 8 mg/dL (7-26); BUN/CREATININE RATIO 10 (6-25); CALCIUM 8.6 mg/dL (8.4-10.2); CARBON DIOXIDE 26 mmol/L (22-29); CHLORIDE 109 mmol/L (98-107); CREATININE, SERUM 0.78 mg/dL (0.57-1.11); EST GLOMERULAR FILTRATION RATE > 60 ML/MIN (60-); GLUCOSE 99 mg/dL (74-118); POTASSIUM 3.7 mmol/L (3.5-5.1); SODIUM 140 mmol/L (136-145)
--- NOTE | 2017-08-24 09:16 | Discharge Summary ---
PRINCIPAL DIAGNOSES 1. Acute pancreatitis. 2. Metabolic acidosis. 3. Obesity. Body mass index 37.8. Hemoglobin A1c 4.9. LD 141. 4. Abdominal pain. 5. Constipation. SECONDARY DIAGNOSES 1. Nephrolithiasis. 2. Obesity. CHIEF COMPLAINT: Abdominal pain. HISTORY OF PRESENT ILLNESS: A 81-year-old woman developing abdominal pain. Refer to the H and P for further details. HOSPITAL COURSE: The patient was found to have acute pancreatitis and treated with IV fluids and n.p.o. status, and improved quickly. Now, tolerating diet. She continues to have abdominal pain. KUB and CT scan did not reveal any other findings. Treated empirically with pain medications. She had constipation treated with bowel regimen. Obesity with BMI of 37.8. Hemoglobin A1c was 4.9. She does not have diabetes. She is currently appropriate for discharge and follow up. DISCHARGE MEDICATIONS: Per electronic medical record. FOLLOWUP: Primary doctor in 1 week and GI services in 1 week. CONDITION ON DISCHARGE: Stable and improving. DISCHARGE LOCATION: Home. NEELIMA TILLEY MD Job#: [id number] [place]
[2017-08-24] MEDS: CYCLOBENZAPRINE HCL 10 MG TAB PO SCH (09:45)
[2017-08-24] MEDS: POLYETHYLENE GLYCOL 3350 17 GM PACK PO SCH (09:45)
== END 2017-08-24 09:52 | disposition home or self-care (01) | DRG 439 ==
LOC: ER 08:01 → ERHOLD 09:54 → MED/SURG 12:52
PROVIDERS: ADMIT Internal Medicine; ATTEND Internal Medicine
DX: K85.90 Acute pancreatitis without necrosis or infection, unspecified (principal); E87.2 Acidosis; K59.00 Constipation, unspecified; E66.9 Obesity, unspecified; Z68.37 Body mass index [BMI] 37.0-37.9, adult; N20.0 Calculus of kidney; E78.5 Hyperlipidemia, unspecified
CPT/HCPCS: 36415; 74018; 74160; 74177; 80048; 80053; 80061; 80076; 81001; 82150; 83036; 83690; 85025; 87040; 87086; 99284; J0694; J1170; J1885; J2270; J2405; J2550; J7030; Q9967

== ENCOUNTER 2017-09-09 08:01 | Emergency (ER) | payer OTHER ==
[~2017-09-09] VITALS: Ht 162.6 cm; Wt 99.8 kg
[~2017-09-09 08:01] MED LIST: BISA PO; CYCLOBENZAPRINE10 MG PO; MIRALAX17 GM PO; TYLENOL WITH C1 EACH PO; ZOFRAN ODT4 MG PO; [UNRECOGNIZED DRUG - OTHER] PO
--- OUTSIDE RECORDS SUMMARY | 2017-09-09 08:04 | XMS REPORT ---
Author Author Admin, [place] Organization [facility] Address Unknown Phone Unavailable Allergies, Adverse Reactions, Alerts Allergy Name Reaction Description Start Date Severity Status Provider No Known Allergies Bogdan Hand MD Conditions or Problems Problem Name Problem Code Onset Date Status Entry Date Provider Comment Standard Description Annotate INSOMNIA DISORDER, PERSISTENT Active Bogdan Hand MD Insomnia, unspecified PANIC DISORDER Active Bogdan Hand MD Panic disorder without agoraphobia PTSD Active Bogdan Hand MD Posttraumatic stress disorder Medication List Medication Instructions Start Date Stop Date Generic Name NDC Status Provider Patient Instruction LEXAPRO 10 MG ORAL TABLET Take one half tablet daily for one week then take one tablet daily ESCITALOPRAM OXALATE 23771414379 Active Bogdan Hand MD Active LORAZEPAM 1 MG ORAL TABLET Take one tablet By Mouth Twice a Day as needed for anxiety LORAZEPAM 21766460996 Active Bogdan Hand MD Active LUNESTA 1 MG ORAL TABLET Take one tablet at bedtime ESZOPICLONE 65040055024 Active Bogdan Hand MD Active Vital Signs Date Name Value Unit Range Description blood pressure, diastolic 85 mm[Hg] BP siddiqui blood pressure, systolic 133 mm[Hg] BP sys height E&M 64 [in_us] Bdy height pulse rate E&M 71 /min Heart rate weight E&M 222.25 [lb_av] Weight Measured Procedures Code Procedure Name Date Entry Date Standard Description CPT-08046 Diagnostic evaluation with medical - 92984 20:46:14 CDT
--- OUTSIDE RECORDS SUMMARY | 2017-09-09 08:04 | XMS REPORT | Continuity of Care Document ---
Author Author [facility] Organization [facility] Address [address] [place] [address] Phone Unavailable Care Team Providers Care Inspector Packer Name Role Phone NONSTAFF PCP Unavailable Insurance Providers Guarantor Anegla Espinosa Yaron Address [address] [place] [address] Email [email or web address] Payer [employer] Policy Number [id number] Subscriber's Name ArjunAngela S Relationship 18 Self / Same As Patient Effective Date 16 Advance Directives Directive Response Recorded Date/Time Does the patient have an advance directive? No 08/20/17 2:40pm If yes, is advance directive on file with [facility]? No 08/20/17 2:40pm If not on file with [facility] will patient provide a copy? No 08/20/17 2:40pm Do you have a Directive to Physician? No 08/20/17 8:38am Do you have a Medical Power of Online Marketing Analyst? No 08/20/17 8:38am Do you have an out of hospital Do Not Resuscitate Order? No 08/20/17 8:38am Do you have any special needs we should be aware of? No 08/20/17 8:38am Do you have a support person here with you today? Yes 08/20/17 8:38am Did patient receive Notice of Privacy Practices? Yes 08/20/17 8:38am Did patient receive patient rights and responsibilities? Yes 08/20/17 8:38am Problems Medical Problem Onset Date Status Pancreatitis, acute Unknown Medications Current Home Medications Medication Dose Units Route Directions Days Qty Instructions Start Date Acetaminophen With Codeine (Tylenol With Codeine #3 Tablet) 1 Each Tablet 300 Mg Oral Every 8 Hours as needed for Pain 30 Tab 08/24/17 Cyclobenzaprine Hcl 10 Mg Tablet 5 Mg Oral Three Times A Day 30 Days 08/24/17 Ondansetron (Zofran Odt) 4 Mg Tab.rapdis 4 Mg Oral Q4-6H Prn 40 Polyethylene Glycol 3350 (Miralax) 17 Gm Powd.pack 17 Gm Oral Twice A Day 30 Days 08/24/17 Senna Fruit/Conc/Doc Sod/Bisa 1 Ea Tab 2 Ea Oral Bedtime 30 Days Social History Smoking Status Start Date Stop Date Never Smoker Hospital Discharge Instructions No hospital discharge instruction information available. Plan of Care Discharge Date 08/24/17 9:52am Disposition HOME, SELF-CARE Instructions/Education Provided Pancreatitis Prescriptions See Medication Section Referrals pcp (Internal Medicine) Order Date: 5-7 Days Entered Date: 08/24/2017 6:54am / (Gastroenterology) Order Date: 5-7 Days Entered Date: 08/24/2017 6:54am Functional Status Query Response Date Recorded Ambulation Ability Independent August 20, 2017 2:46pm Toileting Ability Independent August 23, 2017 6:02pm Allergies, Adverse Reactions, Alerts No known allergies. Immunizations No immunization information available. Vital Signs Acute Vital Signs Vital Response Date/Time Temperature (Fahrenheit) 97.5 degrees F (97.6 - 99.5) 08/24/2017 8:17am Pulse Pulse Rate (adult) 70 bpm (60 - 90) 08/24/2017 8:17am Respiratory Rate 18 bpm (12 - 24) 08/24/2017 8:17am Blood Pressure 138/63 mm Hg 08/24/2017 8:17am Height 5 ft 4 in 08/20/2017 8:08am Weight 220 lb 08/20/2017 8:08am Body Mass Index 37.8 kg/m^2 08/20/2017 2:40pm Results Laboratory Results Test Name Result Units Flags Reference Collection Date/Time Result Date/ Time Comments Urine Test NEGATIVE NEGATIVE 07/03/2017 8:14am 07/03/2017 8 :58am Urine Transitional Epithelial Cells RARE H NONE 08/05/2017 8:29am 11/2017 9:46am White Blood Count 9.20 x10e3/uL 4.8-10.8 08/24/2017 7:46am 08/24/2017 8 :10am Red Blood Count 4.06 x10e6/uL 3.6-5.1 08/24/2017 7:46am 08/24/2017 8: 10am Hemoglobin 12.0 g/dL 12.0-16.0 08/24/2017 7:46am 08/24/2017 8:10am Hematocrit 36.0 % 34.2-44.1 08/24/2017 7:46am 08/24/2017 8:10am Mean Corpuscular Volume 88.7 fL 81-99 08/24/2017 7:4608/24/2017 8: 10am Mean Corpuscular Hemoglobin 29.6 pg 28-32 08/24/2017 7:46am 08/24/2017 8:10am Mean Corpuscular Hemoglobin Concent 33.3 g/dL 31-35 08/24/2017 7:4608/24/2017 8:10am Red Cell Distribution Width 13.3 % 11.7-14.4 08/24/2017 7:462017 8:10am Platelet Count 282 x10e3/uL 140-360 08/24/2017 7:46am 08/24/2017 8: 10am Neutrophils (%) (Auto) 74.9 % 38.7-80.0 08/24/2017 7:46am 08/24/2017 8: 10am Lymphocytes (%) (Auto) 17.2 % L 18.0-39.1 08/24/2017 7:4608/24/2017 8 :10am Monocytes (%) (Auto) 4.7 % 4.4-11.3 08/24/2017 7:4608/24/2017 8: 10am Eosinophils (%) (Auto) 2.3 % 0.0-6.0 08/24/2017 7:46am 08/24/2017 8: 10am Basophils (%) (Auto) 0.4 % 0.0-1.0 08/24/2017 7:46am 08/24/2017 8:10am IM GRANULOCYTES % 0.5 % 0.0-1.0 08/24/2017 7:46am 08/24/2017 8:10am Neutrophils # (Auto) 6.9 2.1-6.9 08/24/2017 7:46am 08/24/2017 8:10am Lymphocytes # (Auto) 1.6 1.0-3.2 08/24/2017 7:46am 08/24/2017 8:10am Monocytes # (Auto) 0.4 0.2-0.8 08/24/2017 7:46am 08/24/2017 8:10am Eosinophils # (Auto) 0.2 0.0-0.4 08/24/2017 7:46am 08/24/2017 8:10am Basophils # (Auto) 0.0 0.0-0.1 08/24/2017 7:46am 08/24/2017 8:10am Absolute Immature Granulocyte (auto 0.05 x10e3/uL 0-0.1 08/24/2017 7: 46am 08/24/2017 8:10am Urine Color YELLOW YELLOW 08/23/2017 11:50am 08/23/2017 12:03pm Urine Clarity CLEAR CLEAR 08/23/2017 11:50am 08/23/2017 12:03pm Urine Specific [place] 1.015 1.010-1.025 08/23/2017 11:50am 2017 12:03pm Urine pH 6 5 - 7 08/23/2017 11:50am 08/23/2017 12:03pm Urine Leukocyte Esterase NEGATIVE NEGATIVE 08/23/2017 11:50am 2017 12:03pm Urine Nitrite NEGATIVE NEGATIVE 08/23/2017 11:50am 08/23/2017 12: 03pm Urine Protein NEGATIVE NEGATIVE 08/23/2017 11:50am 08/23/2017 12: 03pm Urine Glucose (UA) NEGATIVE NEGATIVE 08/23/2017 11:50am 08/23/2017 12 :03pm Urine Ketones NEGATIVE NEGATIVE 08/23/2017 11:50am 08/23/2017 12: 03pm Urine Urobilinogen 0.2 mg/dL 0.2 - 1 08/23/2017 11:50am 08/23/2017 12: 03pm Urine Bilirubin NEGATIVE NEGATIVE 08/23/2017 11:50am 08/23/2017 12: 03pm Urine Blood NEGATIVE NEGATIVE 08/23/2017 11:50am 08/23/2017 12:03pm Urine WBC NONE /HPF 0-5 08/23/2017 11:50am 08/23/2017 12:10pm Urine RBC NONE /HPF 0-5 08/23/2017 11:50am 08/23/2017 12:10pm Urine Bacteria NONE /HPF NONE 08/23/2017 11:50am 08/23/2017 12:10pm Urine Epithelial Cells MODERATE /LPF NONE 08/23/2017 11:50am 2017 12:10pm Sodium Level 140 mmol/L 136-145 08/24/2017 7:46am 08/24/2017 8:26am Potassium Level 3.7 mmol/L 3.5-5.1 08/24/2017 7:46am 08/24/2017 8:26am Chloride Level 109 mmol/L H 98-107 08/24/2017 7:46am 08/24/2017 8:26am Carbon Dioxide Level 26 mmol/L 22-29 08/24/2017 7:46am 08/24/2017 8: 26am Anion Gap 8.7 mmol/L 8-16 08/24/2017 7:46am 08/24/2017 8:26am Blood Urea Nitrogen 8 mg/dL 7-08/24/2017 7:46am 08/24/2017 8:26am Creatinine 0.78 mg/dL 0.57-1.11 08/24/2017 7:46am 08/24/2017 8:26am BUN/Creatinine Ratio 10 6-08/24/2017 7:46am 08/24/2017 8:26am Estimat Glomerular Filtration Rate > 60 ML/MIN 60- 08/24/2017 7:46am 8:26am Ranges were taken from the National Kidney Disease Education Program and the National Kidney Foundation literature. Reference ranges: 60 or greater: Normal 16-59 (for 3 consecutive months): Chronic kidney disease 15 or less: Kidney failure Glucose Level 99 mg/dL 74-118 08/24/2017 7:46am 08/24/2017 8:26am Calcium Level 8.6 mg/dL 8.4-10.2 08/24/2017 7:46am 08/24/2017 8:26am Hemoglobin A1c Percent 4.9 % 4.0-7.0 08/20/2017 8:2008/20/2017 3: 51pm Total Bilirubin 0.5 mg/dL 0.2-1.2 08/24/2017 7:46am 08/24/2017 8:26am Direct Bilirubin 0.1 mg/dL 0.0-0.5 08/21/2017 7:05am 08/21/2017 8:06am Aspartate Amino Transf (AST/SGOT) 19 IU/L 5-34 08/24/2017 7:46am 2017 8:26am Alanine Aminotransferase (ALT/SGPT) 22 IU/L 0-55 08/24/2017 7:46am 8:26am Total Protein 6.0 g/dL L 6.5-8.1 08/24/2017 7:4608/24/2017 8:26am Albumin 3.3 g/dL L 3.5-5.0 08/24/2017 7:4608/24/2017 8:26am Globulin 2.7 g/dL 2.3-3.5 08/24/2017 7:4608/24/2017 8:26am Albumin/Globulin Ratio 1.2 0.8-2.0 08/24/2017 7:4608/24/2017 8: 26am Alkaline Phosphatase 85 IU/L 40-150 08/24/2017 7:4608/24/2017 8: 26am Triglycerides Level 113 MG/DL 0-149 08/20/2017 8:2008/20/2017 3: 56pm Cholesterol Level 227 MD/DL H 0-199 08/20/2017 8:20am 08/20/2017 3:56pm Less than 200 mg/dL Low Risk 201 - 239 mg/dL Borderline Risk 240 mg/dl and greater High Risk LDL Cholesterol 141 MG/DL H 60-130 08/20/2017 8:20am 08/20/2017 3:56pm HDL Cholesterol 63 MG/DL H 40-60 08/20/2017 8:2008/20/2017 3:56pm Cholesterol/HDL Ratio 3.6 3.0-3.6 08/20/2017 8:20am 08/20/2017 3: 56pm Amylase Level 51 U/L 25-125 08/22/2017 7:06am 08/22/2017 7:49am Lipase 22 U/L 8-78 08/22/2017 7:06am 08/22/2017 7:49am Microbiology Results Procedure Source Organism/Result Collection Date/Time Result Date/Time Result Status Urine Culture Urine,Clean Catch KLEBSIELLA PNEUMONIAE 07/03/2017 8:14am 7:15am Final Blood Culture Blood NO GROWTH AFTER 72 HOURS 11:30am 08/23/2017 1:18pm Preliminary Procedures Procedure Status Date Provider(s) CT of abdomen and pelvis without contrast Active 11/24/[address] of abdomen and pelvis without contrast Active 07/03/[address] of abdomen and pelvis without contrast Active 07/30/[address] of abdomen and pelvis without contrast Active 08/05/17 MADELINE GILBERT MD Computed tomography of abdomen and pelvis with contrast Active 08/20/17 OYLETTE VILLARREAL MD Computed tomography of abdomen with contrast Active 08/23/17 NEELIMA TILLEY MD Encounters Encounter Location Arrival/Admit Date Discharge/Depart Date Attending Provider Discharged Inpatient [facility] 08/20/17 9:54am 08/24/17 9:52am NEELIMA TILLEY MD Departed Emergency Room [facility] 08/05/17 8:13am 12:28pm MADELINE GILBERT MD Departed Emergency [facility] 07/30/17 8:25am 11:50am MADELINE MCKEON MD Departed Emergency [facility] 07/03/17 7:56am 11:17am MARTA BARROW MD Departed Emergency Room [facility] 11/24/16 6:59pm 11:11pm MARTA BARROW MD
[2017-09-09] MEDS ORDERED: KETOROLAC TROMETHAMINE 30 MG/ML VIAL IV STA (08:06)
[2017-09-09] MEDS ORDERED: ONDANSETRON HCL INJ 2 MG/ML VIAL IV STA (08:06)
[2017-09-09] MEDS ORDERED: FAMOTIDINE 20 MG/2 ML VIAL IV STA (08:06)
[2017-09-09] MEDS ORDERED: SODIUM CHLORIDE 0.9% 1000ML 1,000 ML IV ONE (08:15)
[2017-09-09] MEDS ORDERED: DICYCLOMINE HCL 20 MG/2 ML VIAL IM ONE (08:15)
[2017-09-09 08:33] LABS: BASOPHILS % 0.6 % (0.0-1.0); EOSINOPHILS # (AUTO) 0.1 (0.0-0.4); EOSINOPHILS % 1.9 % (0.0-6.0); HEMATOCRIT 40.5 % (34.2-44.1); HEMOGLOBIN 13.8 g/dL (12.0-16.0); LYMPHOCYTES # (AUTO) 1.2 (1.0-3.2); LYMPHOCYTES % 19.4 % (18.0-39.1); MEAN CORPUSCULAR HEMOGLOBIN 29.3 pg (28-32); MEAN CORPUSCULAR HGB CONC 34.1 g/dL (31-35); MONOCYTES # (AUTO) 0.3 (0.2-0.8); MONOCYTES % 4.5 % (4.4-11.3); NEUTROPHILS # (AUTO) 4.5 (2.1-6.9); NEUTROPHILS % 73.3 % (38.7-80.0); PLATELET COUNT 292 x10e3/uL (140-360); RED BLOOD COUNT 4.71 x10e6/uL (3.6-5.1); RED CELL DISTRIBUTION WIDTH 13.3 % (11.7-14.4)
[2017-09-09 08:37] LABS: BILIRUBIN,URINE NEGATIVE (NEGATIVE); CLARITY,URINE SL CLOUDY (CLEAR); COLOR,URINE YELLOW (YELLOW); KETONES,URINE NEGATIVE (NEGATIVE); LEUKOCYTE ESTERASE ,URINE NEGATIVE (NEGATIVE); NITRITE,URINE NEGATIVE (NEGATIVE); PROTEIN,URINE DIPSTICK NEGATIVE (NEGATIVE); URINE UROBILINOGEN 0.2 mg/dL (0.2 - 1)
[2017-09-09 08:49] LABS: BACTERIA,URINE RARE /HPF; EPITHELIAL CELLS,URINE FEW /LPF
[2017-09-09 08:50] LABS: ALANINE AMINOTRANSFERASE 15 IU/L (0-55); ALBUMIN 3.8 g/dL (3.5-5.0); ALBUMIN/GLOBULIN RATIO 1.2 (0.8-2.0); ALKALINE PHOSPHATASE 88 IU/L (40-150); ANION GAP 13.5 mmol/L (8-16); BLOOD UREA NITROGEN 10 mg/dL (7-26); BUN/CREATININE RATIO 11 (6-25); CALCIUM 9.3 mg/dL (8.4-10.2); CARBON DIOXIDE 24 mmol/L (22-29); CHLORIDE 103 mmol/L (98-107); EST GLOMERULAR FILTRATION RATE > 60 ML/MIN (60-); GLUCOSE 172 mg/dL (74-118); LIPASE 38 U/L (8-78); MUCUS,URINE RARE (RARE); POTASSIUM 3.5 mmol/L (3.5-5.1); SODIUM 137 mmol/L (136-145)
--- NOTE | 2017-09-09 09:05 | Diagnostic Imaging Report ---
PROCEDURE:X-RAY ABDOMEN - KUB COMPARISON:Patients [facility], DX, ABDOMEN-1VIEW (KUB), 08/23/2017, 13:24. INDICATIONS:ABDOMINAL PAIN FINDINGS: There are no dilated loops of bowel to suggest obstruction. Clips in the right upper quadrant from a previous cholecystectomy. There are no masses or abnormal calcifications. There is no evidence of free air. No acute osseous abnormalities are present. CONCLUSION: No acute abdominal abnormality. Joe Killian D.O. Dictated by: Joe Killian D.O. on 09/09/2017 at 9:06 Electronically approved by: Jeo Killian D.O. on 09/09/2017 at 9:06
[2017-09-09 09:56] VITALS: BP 115/75
== END 2017-09-09 10:26 | disposition home or self-care (01) ==
LOC: ER 08:01
DX: G89.29 Other chronic pain (principal); R11.10 Vomiting, unspecified
CPT/HCPCS: 36415; 74018; 80053; 81001; 83690; 85025; 96372; 96374; 99284; J0500; J1885; J2405; J7030

== ENCOUNTER 2017-10-26 09:23 | Emergency (ER) | payer OTHER ==
[~2017-10-26] VITALS: Ht 162.6 cm; Wt 99.8 kg
--- OUTSIDE RECORDS SUMMARY | 2017-10-26 09:26 | XMS REPORT | Clinical Summary ---
Author Author R[facility] Address Unknown Phone Unavailable Care Team Providers Care Lien Searcher Name Role Phone PCP Unavailable Allergies Active Allergy Reactions Severity Noted Date Comments Codeine 10/25/2017 Tramadol 10/25/2017 Current Medications Prescription Sig. Disp. Refills Start End Date Status Date dicyclomine (BENTYL) 20 Take 1 tablet (20 mg 20 tablet 0 10/26/19 Active mg tablet total) by mouth 2 (two) 18 19 times daily. ondansetron (ZOFRAN) 4 MG Take 1 tablet (4 mg 12 tablet 0 10/26/19 11/02/19 Active tablet total) by mouth every 6 18 18 (six) hours for 7 days. Active Problems Problem Noted Date Abdominal pain, unspecified abdominal location 10/25/2017 Nausea vomiting and diarrhea 10/25/2017 Mild dehydration 10/25/2017 Encounters Date Type Specialty Care Team Description 10/25/2017 Emergency Emergency Medicine Margie Rod DO Abdominal pain, unspecified abdominal location (Primary Dx);Nausea vomiting and diarrhea;Mild dehydration after 10/25/2016 Social History Tobacco Use Types Packs/Day Years Used Date Never Assessed Sex Assigned at Date Recorded Not on file Last Filed Vital Signs Vital Sign Reading Time Taken Blood Pressure 99/61 10/25/2017 9:18 AM CDT Pulse 78 10/25/2017 9:18 AM CDT Temperature 36.8 C (98.2 F) 10/25/2017 8:08 AM CDT Respiratory Rate 18 10/25/2017 9:18 AM CDT Oxygen Saturation 97% 10/25/2017 9:18 AM CDT Inhaled Oxygen - - Concentration Weight 68 kg (150 lb) 10/25/2017 8:10 AM CDT Height 162.6 cm (5' 4") 10/25/2017 8:08 AM CDT Body Mass Index 25.75 10/25/2017 8:10 AM CDT Plan of Treatment Not on file Results * CT abdomen pelvis with IV contrast (10/25/2017 10:19 AM) Specimen Performing Laboratory GE RIS Narrative FINAL REPORT CT of the abdomen and pelvis, with contrast, 10/25/2017. History: Right lower quadrant pain Comparison: None available. Technique: Multidetector CT scanning of the abdomen and pelvis was performed from the level of the lung bases to the inferior pubic ramus, with intravenous administration of non-ionic contrast and with oral contrast. This examination was performed in accordance with a departmental dose optimization program which includes automated exposure control, adjustment of the mA and/or kV according to patient size, and use of iterative reconstruction techniques. Discussion: Minimal atelectatic changes in the imaged lung bases. Status post cholecystectomy. No biliary ductal dilatation. Apparent renal cortical scarring bilaterally without evidence for acute pyelonephritis or hydronephrosis. There is an exophytic 12 mm apparent cyst arising from the interpolar aspect of the left kidney, incompletely assessed. Remainder of the solid abdominal organs appear unremarkable. Abdominal aorta normal in caliber. Portal vein patent. The large and small bowel appear unremarkable. The appendix is not confidently visualized. However, there may be a normal-appearing appendix in the right lower quadrant (image 59). There is no ancillary evidence for appendicitis however. No adenopathy. No ascites. No worrisome skeletal findings. IMPRESSION: No acute findings. Signed: Kely Linton MD Report Verified Date/Time:10/25/2017 10:25:23 Reading Location: [facility] [id number] Consult Reading Room Procedure Note Interface, External Ris In - 10/25/2017 10:27 AM CDT FINAL REPORT CT of the abdomen and pelvis, with contrast, 10/25/2017. History: Right lower quadrant pain Comparison: None available. Technique: Multidetector CT scanning of the abdomen and pelvis was performed from the level of the lung bases to the inferior pubic ramus, with intravenous administration of non-ionic contrast and with oral contrast. This examination was performed in accordance with a departmental dose optimization program which includes automated exposure control, adjustment of the mA and/or kV according to patient size, and use of iterative reconstruction techniques. Discussion: Minimal atelectatic changes in the imaged lung bases. Status post cholecystectomy. No biliary ductal dilatation. Apparent renal cortical scarring bilaterally without evidence for acute pyelonephritis or hydronephrosis. There is an exophytic 12 mm apparent cyst arising from the interpolar aspect of the left kidney, incompletely assessed. Remainder of the solid abdominal organs appear unremarkable. Abdominal aorta normal in caliber. Portal vein patent. The large and small bowel appear unremarkable. The appendix is not confidently visualized. However, there may be a normal-appearing appendix in the right lower quadrant (image 59). There is no ancillary evidence for appendicitis however. No adenopathy. No ascites. No worrisome skeletal findings. IMPRESSION: No acute findings. Signed: Kely Linton MD Report Verified Date/Time: 10/25/2017 10:25:23 Reading Location: [address] Consult Reading Room * Urinalysis w/Microscopic + Reflex to Culture (10/25/2017 8:37 AM) Component Value Ref Range Color, UA Light Yellow Clarity, UA Clear Specific [place], UA 1.005 1.001 - 1.035 pH, UA 6.0 5.0 - 8.0 Protein, UA Negative Negative Glucose, UA Negative Negative Ketones, UA Negative Negative Bilirubin, UA Negative Negative Blood, UA Negative Negative Nitrite, UA Negative Negative Leukocytes, UA Negative Negative Urobilinogen, UA 0.2 0.2 - 1.0 mg/dL RBC, UA <1 /HPF WBC, UA 6 /HPF Bacteria, UA Rare Mucus Rare Squam Epithel, UA 3 /HPF Amorphous Crystals Rare Specimen Source Specimen Performing Laboratory Urine - Urine, [facility] Catch [address] [place] [address] * CBC with platelet count + automated diff (10/25/2017 8:37 AM) Component Value Ref Range WBC 6.2 3.5 - 10.5 K/ L RBC 4.48 3.93 - 5.22 M/ L Hemoglobin 12.7 11.2 - 15.7 GM/DL Hematocrit 39.5 34.1 - 44.9 % MCV 88.2 79.4 - 94.8 fL MCH 28.3 25.6 - 32.2 pg MCHC 32.2 32.2 - 35.5 GM/DL RDW 13.9 11.7 - 14.4 % Platelets 259 150 - 450 K/CU MM MPV 9.6 9.4 - 12.3 fL nRBC 0 0 - 0 /100 WBC % Neutros 67 % % Lymphs 25 % % Monos 6 % % Eos 2 % % Baso 0 % # Neutros 4.15 1.56 - 6.13 K/ L # Lymphs 1.52 1.18 - 3.74 K/ L # Monos 0.38 (H) 0.24 - 0.36 K/ L # Eos 0.09 0.04 - 0.36 K/ L # Baso 0.02 0.01 - 0.08 K/ L Immature 1 0 - 1 % Granulocytes-Relative Specimen Performing Laboratory Blood [place] [id number] * CBC with platelet count + automated diff (10/25/2017 8:37 AM) Specimen Performing Laboratory Blood Narrative The following orders were created for panel order CBC with platelet count + automated diff. Procedure Abnormality Status --------- - ------ CBC with platelet count ...[[id number]]AbnormalFinal result Please view results for these tests on the individual orders. * Lipase (10/25/2017 8:37 AM) Component Value Ref Range Lipase 40 8 - 78 U/L Specimen Performing Laboratory Blood [address] [address] * Comprehensive metabolic panel (10/25/2017 8:37 AM) Component Value Ref Range Protein, Total 6.3 6.0 - 8.3 gm/dL Albumin 3.9 3.5 - 5.0 g/dL Alkaline Phosphatase 80 40 - 150 U/L Total Bilirubin 0.2 0.2 - 1.2 mg/dL Sodium 142 136 - 145 meq/L Potassium 3.8 3.5 - 5.1 meq/L Chloride 111 (H) 98 - 107 meq/L CO2 23 22 - 29 meq/L BUN 14 7 - 21 mg/dL Creatinine 0.80 0.57 - 1.25 mg/dL Glucose 126 (H) 70 - 105 mg/dL Calcium 8.8 8.4 - 10.2 mg/dL AST 14 5 - 34 U/L ALT 21 6 - 55 U/L EGFR 80Comment: ESTIMATED GFR IS NOT ACCURATE mL/min/1.73 sq m CREATININE CLEARANCE IN PREDICTING GLOMERULAR FILTRATION RATE. ESTIMATED GFR IS NOT APPLICABLE FOR DIALYSIS PATIENTS. Specimen Performing Laboratory Blood [facility] [address] [address] after 10/25/2016
--- OUTSIDE RECORDS SUMMARY | 2017-10-26 09:26 | XMS REPORT ---
Author Author Admin, [place] Organization [facility] Address Unknown Phone Unavailable Allergies, Adverse Reactions, Alerts Allergy Name Reaction Description Start Date Severity Status Provider No Known Allergies Bogdan Hand MD Conditions or Problems Problem Name Problem Code Onset Date Status Entry Date Provider Comment Standard Description Annotate DEPRESSIVE DISORDER, MAJOR, RECURRENT EPISODE, W/ PSYCHOTIC FEATURES 10/21 Active Bogdan Hand MD INSOMNIA DISORDER, PERSISTENT Active Bogdan Hand MD Insomnia, unspecified PANIC DISORDER Active Bogdan Hand MD Panic disorder without agoraphobia PTSD Active Bogdan Hand MD Posttraumatic stress disorder Medication List Medication Instructions Start Date Stop Date Generic Name NDC Status Provider Patient Instruction ZYPREXA 10 MG ORAL TABLET Take one tablet By Mouth daily OLANZAPINE 67555384620 Active Bogdan Hand MD Active PRAZOSIN HCL 5 MG ORAL CAPSULE Take one capsule By Mouth at bedtime PRAZOSIN HCL 99325470523 Active Bogdan Hand MD Active LEXAPRO 20 MG ORAL TABLET Take one tablet By Mouth daily ESCITALOPRAM OXALATE 13286939901 Active Bogdan Hand MD Active LORAZEPAM 2 MG ORAL TABLET Take one tablet By Mouth TID as needed for anxiety LORAZEPAM 45659955322 Active Bogdan Hand MD Active LUNESTA 3 MG ORAL TABLET Take one tablet at bedtime ESZOPICLONE 29535585864 Active Bogdan Hand MD Active Vital Signs Date Name Value Unit Range Description blood pressure, diastolic 81 mm[Hg] BP siddiqui blood pressure, systolic 114 mm[Hg] BP sys height E&M 64 [in_us] Bdy height pulse rate E&M 101 /min Heart rate weight E&M 215 [lb_av] Weight Measured blood pressure, diastolic 80 mm[Hg] BP siddiqui blood pressure, systolic 113 mm[Hg] BP sys height E&M 64 [in_us] Bdy height pulse rate E&M 90 /min Heart rate weight E&M 213.13 [lb_av] Weight Measured blood pressure, diastolic 85 mm[Hg] BP siddiqui blood pressure, systolic 133 mm[Hg] BP sys height E&M 64 [in_us] Bdy height pulse rate E&M 71 /min Heart rate weight E&M 222.25 [lb_av] Weight Measured Encounters Date Encounter Provider Code Facility 09:08:54 CDT Est Patient Detailed - [id number] Bogdan Hand MD CPT- 13952 [facility] 08:21:45 CDT Est Patient Detailed - [id number] Bogdan Hand MD CPT- 42212 [facility] ([facility] Procedures Code Procedure Name Date Entry Date Standard Description CPT-22630 Diagnostic evaluation with medical - 12849 20:46:14 CDT
--- OUTSIDE RECORDS SUMMARY | 2017-10-26 09:26 | XMS REPORT | Continuity of Care Document ---
Author Author [facility] Organization [facility] Address [address] [place] [address] Phone Unavailable Care Team Providers Care Cosmetic Manager Name Role Phone NONSTAFF PCP Unavailable Insurance Providers Guarantor Angela Espinosa Address [address] [place] [address] Email [email or web address] Payer [employer] Policy Number [id number] Subscriber's Name Angela Espinosa Yaron Relationship 18 Self / Same As Patient Effective Date 16 Advance Directives Directive Response Recorded Date/Time Does the patient have an advance directive? No 08/20/17 2:40pm If yes, is advance directive on file with [facility]? No 08/20/17 2:40pm If not on file with [facility] will patient provide a copy? No 08/20/17 2:40pm Do you have a Directive to Physician? No 09/09/17 9:17am Do you have a Medical Power of Resolution Agent? No 09/09/17 9:17am Do you have an out of hospital Do Not Resuscitate Order? No 09/09/17 9:17am Do you have any special needs we should be aware of? No 09/09/17 9:17am Do you have a support person here with you today? No 09/09/17 9:17am Did patient receive Notice of Privacy Practices? Yes 09/09/17 9:17am Did patient receive patient rights and responsibilities? Yes 09/09/17 9:17am Problems Medical Problem Onset Date Status Pancreatitis, [...] information available. Plan of Care Discharge Date 09/09/17 10:26am Disposition HOME, SELF-CARE Condition at Discharge Stable Instructions/Education Provided Abdominal Pain - Adult Chronic Pain Forms Provided Work/School Excuse Prescriptions See Medication Section Referrals Rashad Estrada DANIEL MD Address: [address] [place] [address] [place] [address] Functional Status No functional status information available. Allergies, Adverse Reactions, Alerts No known allergies. Immunizations No immunization information available. Vital Signs Acute Vital Signs Vital Response Date/Time Temperature (Fahrenheit) 97.5 degrees F (97.6 - 99.5) 08/24/2017 8:17am Pulse Pulse Rate (adult) 76 bpm (60 - 90) 09/09/2017 9:56am Respiratory Rate 16 bpm (12 - 24) 09/09/2017 9:56am Blood Pressure 115/75 mm Hg 09/09/2017 9:56am Height 5 ft 4 in 09/09/2017 8:09am Weight 220 lb 09/09/2017 8:09am Body Mass Index 37.8 kg/m^2 09/09/2017 8:09am Results Laboratory Results Test Name Result Units Flags Reference Collection Date/Time Result Date/ Time Comments Urine Test NEGATIVE NEGATIVE 07/03/2017 8:14am 07/03/2017 8 :58am Urine Transitional Epithelial Cells RARE H NONE 08/05/2017 8:29am 11/2017 9:46am Hemoglobin A1c Percent 4.9 % 4.0-7.0 08/20/2017 8:08/20/2017 3: 51pm Direct Bilirubin 0.1 mg/dL 0.0-0.5 08/21/2017 7:05am 08/21/2017 8:06am Triglycerides Level 113 MG/DL 0-149 08/20/2017 8:08/20/2017 3: 56pm Cholesterol Level 227 MD/DL H 0-199 08/20/2017 8:08/20/2017 3:56pm Less than 200 mg/dL Low Risk 201 - 239 mg/dL Borderline Risk 240 mg/dl and greater High Risk LDL Cholesterol 141 MG/DL H 60-130 08/20/2017 8:08/20/2017 3:56pm HDL Cholesterol 63 MG/DL H 40-60 08/20/2017 8:08/20/2017 3:56pm Cholesterol/HDL Ratio 3.6 3.0-3.6 08/20/2017 8:08/20/2017 3: 56pm Amylase Level 51 U/L 25-125 08/22/2017 7:0608/22/2017 7:49am White Blood Count 6.20 x10e3/uL 4.8-10.8 09/09/2017 8:09/09/2017 8 :36am Red Blood Count 4.71 x10e6/uL 3.6-5.1 09/09/2017 8:09/09/2017 8: 36am Hemoglobin 13.8 g/dL 12.0-16.0 09/09/2017 8:09/09/2017 8:36am Hematocrit 40.5 % 34.2-44.1 09/09/2017 8:09/09/2017 8:36am Mean Corpuscular Volume 86.0 fL 81-99 09/09/2017 8:09/09/2017 8: 36am Mean Corpuscular Hemoglobin 29.3 pg 28-32 09/09/2017 8:09/09/2017 8:36am Mean Corpuscular Hemoglobin Concent 34.1 g/dL 31-35 09/09/2017 8:09/09/2017 8:36am Red Cell Distribution Width 13.3 % 11.7-14.4 09/09/2017 8:2017 8:36am Platelet Count 292 x10e3/uL 140-360 09/09/2017 8:09/09/2017 8: 36am Neutrophils (%) (Auto) 73.3 % 38.7-80.0 09/09/2017 8:09/09/2017 8: 36am Lymphocytes (%) (Auto) 19.4 % 18.0-39.1 09/09/2017 8:09/09/2017 8: 36am Monocytes (%) (Auto) 4.5 % 4.4-11.3 09/09/2017 8:09/09/2017 8: 36am Eosinophils (%) (Auto) 1.9 % 0.0-6.0 09/09/2017 8:09/09/2017 8: 36am Basophils (%) (Auto) 0.6 % 0.0-1.0 09/09/2017 8:09/09/2017 8:36am IM GRANULOCYTES % 0.3 % 0.0-1.0 09/09/2017 8:09/09/2017 8:36am Neutrophils # (Auto) 4.5 2.1-6.9 09/09/2017 8:09/09/2017 8:36am Lymphocytes # (Auto) 1.2 1.0-3.2 09/09/2017 8:09/09/2017 8:36am Monocytes # (Auto) 0.3 0.2-0.8 09/09/2017 8:09/09/2017 8:36am Eosinophils # (Auto) 0.1 0.0-0.4 09/09/2017 8:09/09/2017 8:36am Basophils # (Auto) 0.0 0.0-0.1 09/09/2017 8:09/09/2017 8:36am Absolute Immature Granulocyte (auto 0.02 x10e3/uL 0-0.1 09/09/2017 8: 09/09/2017 8:36am Urine Color YELLOW YELLOW 09/09/2017 8:09/09/2017 8:37am Urine Clarity SL CLOUDY CLEAR 09/09/2017 8:09/09/2017 8:37am Urine Specific [place] 1.020 1.010-1.025 09/09/2017 8:2017 8:37am Urine pH 6.5 5 - 7 09/09/2017 8:09/09/2017 8:37am Urine Leukocyte Esterase NEGATIVE NEGATIVE 09/09/2017 8:2017 8:37am Urine Nitrite NEGATIVE NEGATIVE 09/09/2017 8:09/09/2017 8:37am Urine Protein NEGATIVE NEGATIVE 09/09/2017 8:09/09/2017 8:37am Urine Glucose (UA) NEGATIVE NEGATIVE 09/09/2017 8:09/09/2017 8: 37am Urine Ketones NEGATIVE NEGATIVE 09/09/2017 8:09/09/2017 8:37am Urine Urobilinogen 0.2 mg/dL 0.2 - 1 09/09/2017 8:09/09/2017 8: 37am Urine Bilirubin NEGATIVE NEGATIVE 09/09/2017 8:09/09/2017 8: 37am Urine Blood NEGATIVE NEGATIVE 09/09/2017 8:09/09/2017 8:37am Urine WBC NONE /HPF 0-5 09/09/2017 8:09/09/2017 8:50am Urine RBC NONE /HPF 0-5 09/09/2017 8:09/09/2017 8:50am Urine Bacteria RARE /HPF NONE 09/09/2017 8:09/09/2017 8:50am Urine Epithelial Cells FEW /LPF NONE 09/09/2017 8:09/09/2017 8: 50am Urine Mucus RARE RARE 09/09/2017 8:09/09/2017 8:50am Sodium Level 137 mmol/L 136-145 09/09/2017 8:09/09/2017 8:51am Potassium Level 3.5 mmol/L 3.5-5.1 09/09/2017 8:09/09/2017 8:51am Chloride Level 103 mmol/L 98-107 09/09/2017 8:09/09/2017 8:51am Carbon Dioxide Level 24 mmol/L 22-29 09/09/2017 8:09/09/2017 8: 51am Anion Gap 13.5 mmol/L 8-16 09/09/2017 8:09/09/2017 8:51am Blood Urea Nitrogen 10 mg/dL 7-26 09/09/2017 8:09/09/2017 8:51am Creatinine 0.90 mg/dL 0.57-1.11 09/09/2017 8:09/09/2017 8:51am BUN/Creatinine Ratio 11 6-25 09/09/2017 8:09/09/2017 8:51am Estimat Glomerular Filtration Rate > 60 ML/MIN 60- 09/09/2017 8: 8:51am Ranges were taken from the National Kidney Disease Education Program and the National Kidney Foundation literature. Reference ranges: 60 or greater: Normal 16-59 (for 3 consecutive months): Chronic kidney disease 15 or less: Kidney failure Glucose Level 172 mg/dL H 74-118 09/09/2017 8:09/09/2017 8:51am Calcium Level 9.3 mg/dL 8.4-10.2 09/09/2017 8:09/09/2017 8:51am Total Bilirubin 0.8 mg/dL 0.2-1.2 09/09/2017 8:09/09/2017 8:51am Aspartate Amino Transf (AST/SGOT) 14 IU/L 5-34 09/09/2017 8:2017 8:51am Alanine Aminotransferase (ALT/SGPT) 15 IU/L 0-55 09/09/2017 8:04/2018 8:51am Total Protein 7.0 g/dL 6.5-8.1 09/09/2017 8:09/09/2017 8:51am Albumin 3.8 g/dL 3.5-5.0 09/09/2017 8:09/09/2017 8:51am Globulin 3.2 g/dL 2.3-3.5 09/09/2017 8:09/09/2017 8:51am Albumin/Globulin Ratio 1.2 0.8-2.0 09/09/2017 8:09/09/2017 8: 51am Alkaline Phosphatase 88 IU/L 40-150 09/09/2017 8:09/09/2017 8: 51am Lipase 38 U/L 8-78 09/09/2017 8:25am 09/09/2017 8:51am Microbiology Results Procedure Source Organism/Result Collection Date/Time Result Date/Time Result Status Urine Culture Urine,Clean Catch KLEBSIELLA PNEUMONIAE 07/03/2017 8:14am 7:15am Final Blood Culture Blood NO GROWTH AFTER 5 DAYS, FINAL REPORT 08/20/2017 11: 30am 08/25/2017 1:18pm Final Procedures Procedure Status Date Provider(s) CT [...] abdomen and pelvis with contrast Active 08/20/17 YOLETTE VILLARREAL MD Computed tomography of abdomen with contrast Active 08/23/17 NEELIMA TILLEY MD Encounters Encounter Location Arrival/Admit Date Discharge/Depart Date Attending Provider Departed Emergency Room [facility] 09/09/17 8:01am 10:26am COLLETTE MARTINEZ MD Discharged Inpatient [facility] 08/20/17 9:54am 08/24/17 9:52am NEELIMA TILLEY MD Departed Emergency Room [facility] 08/05/17 8:13am 12:28pm MADELINE GILBERT MD [facility] 07/30/17 8:25am 11:50am MADELINE MCKEON MD Departed Emergency Room [facility] 07/03/17 7:56am 11:17am MARTA BARROW MD [facility]ed Emergency [facility] 11/24/16 6:59pm 11:11pm MARTA BARROW MD
[2017-10-26] MEDS ORDERED: MORPHINE SULFATE 4 MG/ML SYR IV STA (09:57)
[2017-10-26] MEDS ORDERED: PIPER-TAZ 3.375 GM 50 ML IV STA (09:57)
[2017-10-26] MEDS ORDERED: SODIUM CHLORIDE 0.9% 1000ML 1,000 ML IV STA (09:57)
[2017-10-26] MEDS ORDERED: ASPIRIN 81 MG CHEW TAB PO ONE (10:00)
[2017-10-26] MEDS ORDERED: MORPHINE SULFATE 2 MG/ML SYR ONE (10:07)
[2017-10-26 10:09] LABS: BASOPHILS % 0.6 % (0.0-1.0); EOSINOPHILS # (AUTO) 0.1 (0.0-0.4); EOSINOPHILS % 2.2 % (0.0-6.0); HEMOGLOBIN 13.1 g/dL (12.0-16.0); LYMPHOCYTES # (AUTO) 1.6 (1.0-3.2); LYMPHOCYTES % 25.6 % (18.0-39.1); MEAN CORPUSCULAR HEMOGLOBIN 28.6 pg (28-32); MEAN CORPUSCULAR HGB CONC 32.8 g/dL (31-35); MEAN CORPUSCULAR VOLUME 87.3 fL (81-99); MONOCYTES # (AUTO) 0.4 (0.2-0.8); MONOCYTES % 5.7 % (4.4-11.3); NEUTROPHILS # (AUTO) 4.2 (2.1-6.9); NEUTROPHILS % 65.6 % (38.7-80.0); PLATELET COUNT 259 x10e3/uL (140-360); RED BLOOD COUNT 4.58 x10e6/uL (3.6-5.1); RED CELL DISTRIBUTION WIDTH 14.1 % (11.7-14.4)
[2017-10-26 10:11] LABS: CLARITY,URINE CLEAR (CLEAR); COLOR,URINE YELLOW (YELLOW); LEUKOCYTE ESTERASE ,URINE NEGATIVE (NEGATIVE); NITRITE,URINE NEGATIVE (NEGATIVE)
[2017-10-26] MEDS ORDERED: SODIUM CHLORIDE 0.9% 50ML 50 ML ONE (10:11)
[2017-10-26 10:12] LABS: BILIRUBIN,URINE NEGATIVE (NEGATIVE); KETONES,URINE NEGATIVE (NEGATIVE); PROTEIN,URINE DIPSTICK NEGATIVE (NEGATIVE); URINE UROBILINOGEN 0.2 mg/dL (0.2 - 1)
[2017-10-26] MEDS ORDERED: IOPAMIDOL 300MG/ML 100 ML INFUS..BTL IV ONE (10:13)
[2017-10-26] MEDS ORDERED: IOPAMIDOL 370 MG/ML 200 ML INFUS..BTL INJ ONE (10:14)
[2017-10-26] MEDS ORDERED: ONDANSETRON HCL 4 MG ORAL DISINTEGRATING TAB PO ONE (10:20)
[2017-10-26 10:21] LABS: BACTERIA,URINE FEW /HPF; EPITHELIAL CELLS,URINE FEW /LPF; MUCUS,URINE FEW (RARE); RBC,URINE 0-5 /HPF (0-5); WBC,URINE (MAN) 0-5 /HPF (0-5)
[2017-10-26 10:21] LABS: ALANINE AMINOTRANSFERASE 23 IU/L (0-55); ALBUMIN 3.6 g/dL (3.5-5.0); ALBUMIN/GLOBULIN RATIO 1.2 (0.8-2.0); ALKALINE PHOSPHATASE 79 IU/L (40-150); ANION GAP 11.8 mmol/L (8-16); BLOOD UREA NITROGEN 11 mg/dL (7-26); BUN/CREATININE RATIO 13 (6-25); CALCIUM 9.1 mg/dL (8.4-10.2); CARBON DIOXIDE 22 mmol/L (22-29); CHLORIDE 109 mmol/L (98-107); CREATININE, SERUM 0.84 mg/dL (0.57-1.11); EST GLOMERULAR FILTRATION RATE > 60 ML/MIN (60-); GLUCOSE 98 mg/dL (74-118); LIPASE 43 U/L (8-78); POTASSIUM 4.8 mmol/L (3.5-5.1); SODIUM 138 mmol/L (136-145)
[2017-10-26 10:33] LABS: CREATINE KINASE 58 IU/L (29-168)
[2017-10-26] MEDS ORDERED: KETOROLAC TROMETHAMINE 30 MG/ML VIAL IV STA (10:49)
--- NOTE | 2017-10-26 11:44 | Diagnostic Imaging Report ---
EXAM: CT Abdomen and Pelvis WITH contrast INDICATION: \S\r/o appy divetic \[id number] \S\1040 COMPARISON: Abdominal CT 08/23/2017 and 11/24/2016 TECHNIQUE: Abdomen and pelvis were scanned utilizing a multidetector helical scanner from the lung base to the pubic symphysis after administration of IV contrast. Coronal and sagittal reformations were obtained. Routine protocol was performed. Scan was performed when during portal venous phase. IV CONTRAST: 100 mL of Isovue-370 ORAL CONTRAST: Water COMPLICATIONS: None RADIATION DOSE: Total DLP: 837 mGy*cm Estimated effective dose: (DLP x 0.015 x size factor) mSv CTDIvol has been reviewed. It is below the limits set by the Radiation Protocol Committee (RPC). FINDINGS: LINES and TUBES: None. LOWER THORAX: Unremarkable HEPATOBILIARY: No focal hepatic lesions. No biliary ductal dilation. GALLBLADDER: Cholecystectomy. SPLEEN: No splenomegaly. PANCREAS: No focal masses or ductal dilatation. ADRENALS: No adrenal nodules KIDNEYS/URETERS: Scarring in left superior renal pole. Kidneys enhance symmetrically. No hydronephrosis. There are scattered too small to characterize hypodensites, likely benign. No stones. GI TRACT: No abnormal distention, wall thickening, or evidence of bowel obstruction. Right lower quadrant fluid without definite visualization of the appendix. A normal diameter structure is favored to represent the appendix (coronal image 38, series 2 image 56) although the tip is not visualized. The thin hyperattenuating appearance is similar to CT 08/20/2017, as seen on series 2 image 60. A new area of central fat attenuation compared to CT 08/20/2017 in the right lower quadrant in an area of redundant sigmoid colon (coronal image 49) suggests an episode of epiploic appendagitis with resolution of inflammation given the lack of adjacent stranding. The fluid seen in the right lower quadrant appears relatively distant to this segment of colon. PELVIC ORGANS/BLADDER: Hysterectomy. Ovaries appear relatively symmetric in size. LYMPH NODES: No lymphadenopathy. VESSELS: Unremarkable. PERITONEUM / RETROPERITONEUM: No free air or fluid. BONES: Unremarkable. SOFT TISSUES: Small fat-containing supraumbilical ventral hernia. IMPRESSION: Nonspecific fluid along the right paracolic gutter of uncertain etiology. A tubular structure in the right lower quadrant is favored to represent a normal appearing appendix although not visualized in its entirety. As such, a tip appendicitis cannot be completely excluded. Consider short term follow up CT in 24 hours to evaluate for interval change. Signed by: DR. Bharathi Griggs MD on 10/26/2017 11:40 AM
[2017-10-26 12:27] VITALS: BP 109/74
== END 2017-10-26 12:30 | disposition home or self-care (01) ==
LOC: ER 09:23
DX: R10.31 Right lower quadrant pain (principal)
CPT/HCPCS: 93005; 99284; J1885; J2270; J2543; J7030; Q9967

== ENCOUNTER 2017-11-17 07:45 | Emergency (ER) | payer OTHER ==
[~2017-11-17] VITALS: Ht 162.6 cm; Wt 99.8 kg
[2017-11-17] MEDS ORDERED: KETOROLAC TROMETHAMINE 30 MG/ML VIAL IV STA (07:59)
[2017-11-17] MEDS ORDERED: MORPHINE SULFATE 2 MG/ML SYR IV STA (07:59)
[2017-11-17] MEDS ORDERED: ONDANSETRON HCL 4 MG ORAL DISINTEGRATING TAB PO ONE (08:00)
[2017-11-17] MEDS ORDERED: SODIUM CHLORIDE 0.9% 1000ML 1,000 ML IV SCH (08:00)
[2017-11-17 08:18] LABS: BASOPHILS # (AUTO) 0.1 (0.0-0.1); BASOPHILS % 0.8 % (0.0-1.0); EOSINOPHILS # (AUTO) 0.1 (0.0-0.4); EOSINOPHILS % 1.4 % (0.0-6.0); HEMATOCRIT 38.2 % (34.2-44.1); HEMOGLOBIN 13.1 g/dL (12.0-16.0); LYMPHOCYTES # (AUTO) 1.5 (1.0-3.2); LYMPHOCYTES % 23.3 % (18.0-39.1); MEAN CORPUSCULAR HEMOGLOBIN 28.9 pg (28-32); MEAN CORPUSCULAR HGB CONC 34.3 g/dL (31-35); MEAN CORPUSCULAR VOLUME 84.3 fL (81-99); MONOCYTES # (AUTO) 0.3 (0.2-0.8); MONOCYTES % 5.2 % (4.4-11.3); NEUTROPHILS # (AUTO) 4.5 (2.1-6.9); NEUTROPHILS % 69.1 % (38.7-80.0); PLATELET COUNT 275 x10e3/uL (140-360); RED BLOOD COUNT 4.53 x10e6/uL (3.6-5.1); RED CELL DISTRIBUTION WIDTH 14.1 % (11.7-14.4)
[2017-11-17 08:19] LABS: CLARITY,URINE SL CLOUDY (CLEAR); COLOR,URINE YELLOW (YELLOW)
[2017-11-17 08:20] LABS: BILIRUBIN,URINE NEGATIVE (NEGATIVE); KETONES,URINE NEGATIVE (NEGATIVE); LEUKOCYTE ESTERASE ,URINE NEGATIVE (NEGATIVE); NITRITE,URINE NEGATIVE (NEGATIVE); PROTEIN,URINE DIPSTICK NEGATIVE (NEGATIVE); URINE UROBILINOGEN 0.2 mg/dL (0.2 - 1)
[2017-11-17 08:23] LABS: BACTERIA,URINE FEW /HPF; EPITHELIAL CELLS,URINE MODERATE /LPF; RBC,URINE 0-5 /HPF (0-5); WBC,URINE (MAN) 0-5 /HPF (0-5)
[2017-11-17] MEDS ORDERED: DIATRIZOATE MEGL/DIATRIZOA SOD 30 ML BTL PO ONE (08:28)
[2017-11-17 08:37] LABS: ALANINE AMINOTRANSFERASE 18 IU/L (0-55); ALBUMIN 3.8 g/dL (3.5-5.0); ALBUMIN/GLOBULIN RATIO 1.3 (0.8-2.0); ALKALINE PHOSPHATASE 87 IU/L (40-150); AMYLASE 79 U/L (25-125); ANION GAP 12.2 mmol/L (8-16); BLOOD UREA NITROGEN 14 mg/dL (7-26); BUN/CREATININE RATIO 17 (6-25); CALCIUM 9.2 mg/dL (8.4-10.2); CARBON DIOXIDE 19 mmol/L (22-29); CHLORIDE 109 mmol/L (98-107); CREATININE, SERUM 0.83 mg/dL (0.57-1.11); EST GLOMERULAR FILTRATION RATE > 60 ML/MIN (60-); GLUCOSE 105 mg/dL (74-118); LIPASE 38 U/L (8-78); POTASSIUM 4.2 mmol/L (3.5-5.1); SODIUM 136 mmol/L (136-145)
[2017-11-17] MEDS ORDERED: HYDROMORPHONE 1MG/1ML INJ IV STA ×2 (09:34→10:38)
--- NOTE | 2017-11-17 10:19 | Diagnostic Imaging Report ---
PROCEDURE: CT ABDOMEN AND PELVIS WITH CONTRAST TECHNIQUE: The abdomen and pelvis were scanned utilizing a multidetector helical scanner from the diaphragm to the lesser trochanter after the IV administration of 100 cc of Isovue 370 and the oral administration of Gastrografin. Coronal and sagittal multiplanar reformations were obtained. COMPARISON: 10/26/2017. INDICATIONS: RIGHT LOWER QUADRANT PAIN FINDINGS: LOWER THORAX: Subsegmental atelectasis in the dependent portions of the lower lobes. No pleural or pericardial effusion.. HEPATOBILIARY: No focal hepatic lesion or intrahepatic biliary ductal dilatation. The gallbladder has been removed with multiple metallic clips in the gallbladder fossa. SPLEEN: No splenomegaly. PANCREAS: No focal masses or ductal dilatation. ADRENALS: No adrenal nodules. KIDNEYS/URETERS: Unchanged scarring versus lobulation of the left kidney with a subcentimeter exophytic low-attenuation structure, too small to further characterize but likely represent a small cyst. No additional focal renal lesions. No hydronephrosis or calculus. PELVIC ORGANS/BLADDER: The urinary bladder is unremarkable. The uterus is not identified and has presumably been removed. Right ovarian corpus luteum cyst. PERITONEUM / RETROPERITONEUM: No ascites or pneumoperitoneum. Previously described trace fluid along the right paracolic gutter has resolved. LYMPH NODES: No pelvic sidewall, retroperitoneal, or mesenteric lymphadenopathy. VESSELS: The abdominal aorta, major branch vessels, and iliac arterial systems are patent, without aneurysmal dilatation. Hepatic arterial anatomy appears conventional. A single renal artery perfuses each kidney. Retroaortic left renal vein. Portal vein, splenic vein, and central superior mesenteric vein are patent. GI TRACT: The large bowel shows no evidence of distention or wall thickening though the transverse and descending colon are collapsed and poorly evaluated. The appendix is again poorly visualized. A linear structure felt to represent a normal appendix is again noted on series 2 image 55. There is no small bowel dilatation to suggest obstruction. BONES AND SOFT TISSUES: Small fat containing supraumbilical ventral hernia with associated postsurgical changes of the anterior abdominal wall. No additional focal soft tissue abnormalities. No osseous destructive lesions. IMPRESSION: No acute intra-abdominal or pelvic CT abnormalities. Questionable visualization of the appendix, without right lower quadrant inflammation. Dictated by: Vasiliy Bae M.D. on 11/17/2017 at 10:22 Electronically approved by: Vasiliy Bae M.D. on 11/17/2017 at 10:22
[2017-11-17] MEDS ORDERED: IOPAMIDOL 370 MG/ML 200 ML INFUS..BTL INJ ONE (10:40)
[2017-11-17] MEDS ORDERED: SODIUM CHLORIDE 0.9% 50ML 50 ML ONE (10:40)
[2017-11-17 11:04] VITALS: BP 118/65
== END 2017-11-17 11:15 | disposition home or self-care (01) ==
LOC: ER 07:45
DX: R10.31 Right lower quadrant pain (principal); R11.2 Nausea with vomiting, unspecified; R19.7 Diarrhea, unspecified
CPT/HCPCS: 36415; 74177; 80053; 81001; 82150; 83690; 85025; 99284; J1170; J1885; J2270; J7030; Q9967

== ENCOUNTER 2017-12-04 07:45 | Emergency (ER) | payer OTHER ==
[~2017-12-04] VITALS: Ht 162.6 cm; Wt 99.8 kg
[~2017-12-04 07:45] MED LIST changes: +IOPAMIDOL 370 MG/ML 50ML INFUS..BTL INJ ONE; +SODIUM CHLORIDE 0.9% INJ 50 ML BAG ONE
[2017-12-04 08:24] LABS: BASOPHILS # (AUTO) 0.1 (0.0-0.1); BASOPHILS % 0.7 % (0.0-1.0); EOSINOPHILS # (AUTO) 0.1 (0.0-0.4); EOSINOPHILS % 1.4 % (0.0-6.0); HEMOGLOBIN 13.1 g/dL (12.0-16.0); LYMPHOCYTES # (AUTO) 1.6 (1.0-3.2); LYMPHOCYTES % 22.5 % (18.0-39.1); MEAN CORPUSCULAR HEMOGLOBIN 28.5 pg (28-32); MEAN CORPUSCULAR HGB CONC 34.5 g/dL (31-35); MEAN CORPUSCULAR VOLUME 82.8 fL (81-99); MONOCYTES # (AUTO) 0.3 (0.2-0.8); MONOCYTES % 4.2 % (4.4-11.3); NEUTROPHILS # (AUTO) 4.9 (2.1-6.9); NEUTROPHILS % 71.1 % (38.7-80.0); PLATELET COUNT 275 x10e3/uL (140-360); RED BLOOD COUNT 4.59 x10e6/uL (3.6-5.1); RED CELL DISTRIBUTION WIDTH 13.8 % (11.7-14.4)
[2017-12-04 08:28] LABS: BILIRUBIN,URINE NEGATIVE (NEGATIVE); CLARITY,URINE CLEAR (CLEAR); COLOR,URINE YELLOW (YELLOW); KETONES,URINE NEGATIVE (NEGATIVE); LEUKOCYTE ESTERASE ,URINE NEGATIVE (NEGATIVE); NITRITE,URINE NEGATIVE (NEGATIVE); PROTEIN,URINE DIPSTICK NEGATIVE (NEGATIVE); URINE UROBILINOGEN 0.2 mg/dL (0.2 - 1)
[2017-12-04 08:38] LABS: WBC,URINE (MAN) 0-5 /HPF (0-5)
[2017-12-04 08:39] LABS: BACTERIA,URINE FEW /HPF; EPITHELIAL CELLS,URINE FEW /LPF
[2017-12-04 08:40] LABS: ALANINE AMINOTRANSFERASE 13 IU/L (0-55); ALBUMIN 3.8 g/dL (3.5-5.0); ALBUMIN/GLOBULIN RATIO 1.2 (0.8-2.0); ALKALINE PHOSPHATASE 83 IU/L (40-150); ANION GAP 11.7 mmol/L (8-16); BLOOD UREA NITROGEN 11 mg/dL (7-26); BUN/CREATININE RATIO 13 (6-25); CALCIUM 9.2 mg/dL (8.4-10.2); CARBON DIOXIDE 22 mmol/L (22-29); CHLORIDE 108 mmol/L (98-107); CREATININE, SERUM 0.88 mg/dL (0.57-1.11); EST GLOMERULAR FILTRATION RATE > 60 ML/MIN (60-); GLUCOSE 95 mg/dL (74-118); POTASSIUM 3.7 mmol/L (3.5-5.1); SODIUM 138 mmol/L (136-145)
[2017-12-04] MEDS ORDERED: ONDANSETRON HCL INJ 2 MG/ML VIAL IV STA ×2 (08:40→10:04)
[2017-12-04] MEDS ORDERED: KETOROLAC TROMETHAMINE 30 MG/ML VIAL IV STA (08:40)
[2017-12-04] MEDS ORDERED: SODIUM CHLORIDE 0.9% 1000ML 1,000 ML IV STA (08:42)
[2017-12-04 08:53] LABS: AMYLASE 52 U/L (25-125); LIPASE 20 U/L (8-78)
[2017-12-04] MEDS ORDERED: MORPHINE SULFATE 2 MG/ML SYR IV STA (10:04)
[2017-12-04] MEDS ORDERED: DIATRIZOATE MEGL/DIATRIZOA SOD 30 ML BTL PO ONE (10:22)
--- NOTE | 2017-12-04 12:03 | Diagnostic Imaging Report ---
PROCEDURE: CT ABDOMEN AND PELVIS WITH CONTRAST TECHNIQUE: The abdomen and pelvis were scanned utilizing a multidetector helical scanner from the diaphragm to the lesser trochanter after the IV administration of 100 cc of Isovue 370 and the oral administration of Gastrografin intermixed with water. Coronal and sagittal multiplanar reformations were obtained. DLP: 840.70 mGy-cm COMPARISON: None. INDICATIONS: EPIGASTRIC PAIN FINDINGS: LOWER THORAX: Minimal amount of basilar pleural thickening/fluid. HEPATOBILIARY: No focal hepatic lesions. No biliary ductal dilatation. Gallbladder is surgically removed. SPLEEN: No splenomegaly. PANCREAS: No focal masses or ductal dilatation. ADRENALS: No adrenal nodules. KIDNEYS/URETERS: No hydronephrosis or solid mass lesions. Small left exophytic renal cyst. Irregularity of the left upper pole compatible with persistent lobulation versus scarring. Nonobstructing left interpolar 3 mm stone. PELVIC ORGANS/BLADDER: Unremarkable. Uterus and adnexal structures are absent. PERITONEUM / RETROPERITONEUM: Minimal amount of fluid in the right pelvis is likely physiologic. LYMPH NODES: No lymphadenopathy. VESSELS: Unremarkable arterial vasculature. There is a retroaortic left renal vein. GI TRACT: No distention or wall thickening. BONES AND SOFT TISSUES: Small bone islands involving L5. Small umbilical hernia. IMPRESSION: 1. No acute abnormality involving the abdomen or pelvis. 2. Nonobstructing tiny left interpolar renal stone. Joe Killian D.O. Dictated by: Joe Killian D.O. on 12/04/2017 at 12:07 Electronically approved by: Joe Killian D.O. on 12/04/2017 at 12:07
[2017-12-04] MEDS ORDERED: DICYCLOMINE HCL 20 MG/2 ML VIAL IM ONE (12:30)
[2017-12-04] MEDS ORDERED: IOPAMIDOL 370 MG/ML 200 ML INFUS..BTL INJ ONE (13:11)
[2017-12-04] MEDS ORDERED: SODIUM CHLORIDE 0.9% 50ML 50 ML ONE (13:11)
== END 2017-12-04 13:10 | disposition home or self-care (01) ==
LOC: ER 07:45
DX: R10.33 Periumbilical pain (principal); K58.0 Irritable bowel syndrome with diarrhea; K86.9 Disease of pancreas, unspecified
CPT/HCPCS: 36415; 74177; 80053; 81001; 82150; 83690; 85025; 99284; J0500; J1885; J2270; J2405; J7030; Q9967

== ENCOUNTER 2018-01-21 07:51 | Emergency (ER) | payer OTHER ==
[~2018-01-21] VITALS: Ht 162.6 cm; Wt 99.8 kg
[~2018-01-21 07:51] MED LIST changes: -IOPAMIDOL 370 MG/ML 50ML INFUS..BTL INJ ONE; -SODIUM CHLORIDE 0.9% INJ 50 ML BAG ONE
[2018-01-21] MEDS ORDERED: ONDANSETRON HCL INJ 2 MG/ML VIAL IV STA ×2 (08:02→08:55)
[2018-01-21] MEDS ORDERED: MORPHINE SULFATE INJ 4 MG/ML INJ IV PRN (08:15)
[2018-01-21] MEDS ORDERED: SODIUM CHLORIDE 0.9% 1000ML 1,000 ML IV SCH (08:15)
[2018-01-21 08:22] LABS: BASOPHILS % 0.5 % (0.0-1.0); EOSINOPHILS # (AUTO) 0.1 (0.0-0.4); EOSINOPHILS % 1.4 % (0.0-6.0); HEMATOCRIT 37.7 % (34.2-44.1); HEMOGLOBIN 12.8 g/dL (12.0-16.0); LYMPHOCYTES # (AUTO) 1.6 (1.0-3.2); LYMPHOCYTES % 28.2 % (18.0-39.1); MEAN CORPUSCULAR HEMOGLOBIN 29.4 pg (28-32); MEAN CORPUSCULAR VOLUME 86.5 fL (81-99); MONOCYTES # (AUTO) 0.3 (0.2-0.8); NEUTROPHILS # (AUTO) 3.7 (2.1-6.9); NEUTROPHILS % 64.9 % (38.7-80.0); PLATELET COUNT 263 x10e3/uL (140-360); RED BLOOD COUNT 4.36 x10e6/uL (3.6-5.1); RED CELL DISTRIBUTION WIDTH 14.2 % (11.7-14.4)
[2018-01-21 08:30] LABS: BILIRUBIN,URINE NEGATIVE (NEGATIVE); CLARITY,URINE SL CLOUDY (CLEAR); COLOR,URINE YELLOW (YELLOW); KETONES,URINE NEGATIVE (NEGATIVE); LEUKOCYTE ESTERASE ,URINE NEGATIVE (NEGATIVE); NITRITE,URINE POSITIVE (NEGATIVE); PROTEIN,URINE DIPSTICK NEGATIVE (NEGATIVE); URINE UROBILINOGEN 0.2 mg/dL (0.2 - 1)
[2018-01-21 08:35] LABS: BACTERIA,URINE MANY /HPF; EPITHELIAL CELLS,URINE MODERATE /LPF; RBC,URINE 0-5 /HPF (0-5); WBC,URINE (MAN) 0-5 /HPF (0-5)
[2018-01-21 08:48] LABS: ALANINE AMINOTRANSFERASE 15 IU/L (0-55); ALBUMIN 3.5 g/dL (3.5-5.0); ALBUMIN/GLOBULIN RATIO 1.2 (0.8-2.0); ALKALINE PHOSPHATASE 90 IU/L (40-150); AMYLASE 96 U/L (25-125); ANION GAP 12.4 mmol/L (8-16); BLOOD UREA NITROGEN 7 mg/dL (7-26); BUN/CREATININE RATIO 8 (6-25); CALCIUM 8.9 mg/dL (8.4-10.2); CARBON DIOXIDE 23 mmol/L (22-29); CHLORIDE 107 mmol/L (98-107); CREATINE KINASE 75 IU/L (29-168); CREATININE, SERUM 0.83 mg/dL (0.57-1.11); EST GLOMERULAR FILTRATION RATE > 60 ML/MIN (60-); GLUCOSE 115 mg/dL (74-118); LIPASE 28 U/L (8-78); POTASSIUM 3.4 mmol/L (3.5-5.1); SODIUM 139 mmol/L (136-145)
[2018-01-21 08:52] LABS: AMPHETAMINES SCREEN,URINE NEGATIVE (NEGATIVE); BENZODIAZEPINES SCREEN,URINE POSITIVE (NEGATIVE); PHENCYCLIDINE SCREEN,URINE NEGATIVE (NEGATIVE)
[2018-01-21] MEDS ORDERED: FENTANYL CITRATE/PF 100MCG/2 ML INJ IV ONE (09:00)
[2018-01-21] MEDS ORDERED: SODIUM CHLORIDE 0.9% 50ML 50 ML ONE (09:35)
[2018-01-21] MEDS ORDERED: IOPAMIDOL 370 MG/ML 200 ML INFUS..BTL INJ ONE (09:36)
--- NOTE | 2018-01-21 10:00 | Diagnostic Imaging Report ---
PROCEDURE: CT ABDOMEN AND PELVIS WITH CONTRAST TECHNIQUE: The abdomen and pelvis were scanned utilizing a multidetector helical scanner from the diaphragm to the lesser trochanter after the IV administration of 100 cc of Isovue 370 and the oral administration of water. Coronal and sagittal multiplanar reformations were obtained. Dose reduction parameters were utilized. DLP: 868.77 mGy-cm COMPARISON: Patients [facility], CT, CT ABDOMEN/PELVIS W, 12/04/2017, 11:21. INDICATIONS: EPIGASTRIC PAIN, FEET NUMBNESS FINDINGS: LOWER THORAX: Minimal bibasilar atelectasis. HEPATOBILIARY: No focal hepatic lesions. No biliary ductal dilatation. The gallbladder is absent. SPLEEN: No splenomegaly. PANCREAS: No focal masses or ductal dilatation. ADRENALS: No adrenal nodules. KIDNEYS/URETERS: No hydronephrosis or solid mass lesions. Small exophytic left renal cyst measures less than 1 cm. Unchanged small left interpolar renal stone. There is a tiny right lower pole renal stone PELVIC ORGANS/BLADDER: Unremarkable appearing bladder. PERITONEUM / RETROPERITONEUM: No free air or fluid. LYMPH NODES: No lymphadenopathy. VESSELS: There is a retroaortic left renal vein. GI TRACT: No distention or wall thickening. BONES AND SOFT TISSUES: Bones are unremarkable. Small umbilical hernia measures 2.5 cm and is larger. Only abdominal fat present within the hernia. IMPRESSION: 1. Small bilateral renal stones. 2. Umbilical hernia appears more prominent. Joe Killian D.O. Dictated by: Joe Killian D.O. on 01/21/2018 at 10:06 Electronically approved by: Joe Killian D.O. on 01/21/2018 at 10:06
--- NOTE | 2018-01-21 10:15 | Diagnostic Imaging Report ---
EXAMINATION: CT of the lumbar spine HISTORY: Abdomen and back pain, feet numbness for the last day COMPARISON: Abdomen CT on 12/04/2017 TECHNIQUE: Multidetector helical axial images were reconstructed from enhanced abdomen CT performed on the same day from L1 to S1. The images were reconstructed using bone and soft tissue algorithms and were viewed in axial, sagittal, and coronal planes. Dose modulation, iterative reconstruction, and/or weight based adjustment of the mA/kV was utilized to reduce the radiation dose to as low as reasonably achievable. FINDINGS: Alignment: Normal alignment and lordosis. Vertebral bodies: Normal height and density. Paraspinal soft tissues: Scars in the left kidney and hypodensities in both kidneys, please see dictation of abdomen CT performed on the same day for further detail. Intervertebral disks: L1-L2: Normal. L2-L3: Normal. L3-L4: Normal. L4-L5: Normal. L5-S1: Decreased disc height, symmetric disc bulge, facet arthrosis. Moderate foraminal stenoses. Sacroiliac joints: Degenerative changes with vacuum phenomena, subchondral sclerosis and marginal osteophytes. IMPRESSION: 1. No acute lumbar spine abnormalities. 2. 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 3. Chronic degenerative changes of the sacroiliac joints. Note is made that acute posttraumatic thecal sac/cauda equina, vascular or ligamentous injury in the appropriate clinical setting cannot be assessed with CT. Signed by: Dr. Fariba Galeana M.D. on 01/21/2018 10:12 AM
[2018-01-21] MEDS ORDERED: KEFLEX500 MG PO (10:34)
[2018-01-21] MEDS ORDERED: PREDNISONE20 MG PO (10:34)
[2018-01-21 11:25] VITALS: BP 100/62
== END 2018-01-21 11:00 | disposition home or self-care (01) ==
LOC: ER 07:51
DX: R10.33 Periumbilical pain (principal); R11.2 Nausea with vomiting, unspecified; N39.0 Urinary tract infection, site not specified; N30.90 Cystitis, unspecified without hematuria
CPT/HCPCS: 36415; 72132; 74177; 80053; 80307; 81001; 82150; 82550; 82553; 83690; 84484; 84702; 85025; 99284; J2270; J2405; J7030; Q9967

== ENCOUNTER 2018-02-09 08:28 | Emergency (ER) | payer OTHER ==
[~2018-02-09] VITALS: Ht 162.6 cm; Wt 99.8 kg
[~2018-02-09 08:28] MED LIST changes: +KEFLEX500 MG PO; +PREDNISONE20 MG PO
[2018-02-09 09:30] LABS: BILIRUBIN,URINE 1+ (NEGATIVE); CLARITY,URINE SL CLOUDY (CLEAR); COLOR,URINE AMBER (YELLOW); KETONES,URINE NEGATIVE (NEGATIVE); LEUKOCYTE ESTERASE ,URINE NEGATIVE (NEGATIVE); NITRITE,URINE NEGATIVE (NEGATIVE); PROTEIN,URINE DIPSTICK TRACE (NEGATIVE); URINE UROBILINOGEN 1 mg/dL (0.2 - 1)
[2018-02-09 09:31] LABS: PREGNANCY TEST, URINE NEGATIVE (NEGATIVE)
[2018-02-09 10:04] LABS: BACTERIA,URINE FEW /HPF
[2018-02-09 10:06] LABS: EPITHELIAL CELLS,URINE MODERATE /LPF
[2018-02-09] MEDS ORDERED: DEXAMETHASONE SOD PHOS 10 MG/1 ML VIAL INJ ONE (10:30)
[2018-02-09] MEDS ORDERED: KETOROLAC TROMETHAMINE 60 MG/2 ML VIAL IM ONE (10:30)
[2018-02-09 11:18] VITALS: BP 112/71
== END 2018-02-09 11:21 | disposition home or self-care (01) ==
LOC: ER 08:28
DX: M54.5 Low back pain (principal); M51.36 Other intervertebral disc degeneration, lumbar region
CPT/HCPCS: 36415; 81001; 81025; 82948; 99282; J1100; J1885

== ENCOUNTER 2018-03-04 08:29 | Emergency (ER) | payer OTHER ==
[~2018-03-04] VITALS: Ht 162.6 cm; Wt 99.8 kg
[2018-03-04] MEDS ORDERED: SODIUM CHLORIDE 0.9% 1000ML 1,000 ML IV STA (08:37)
[2018-03-04] MEDS ORDERED: ACETAMINOPHEN 325 MG TAB PO ONE (08:45)
[2018-03-04 09:20] LABS: BASOPHILS % 0.6 % (0.0-1.0); EOSINOPHILS # (AUTO) 0.1 (0.0-0.4); EOSINOPHILS % 2.3 % (0.0-6.0); HEMATOCRIT 36.8 % (34.2-44.1); HEMOGLOBIN 12.5 g/dL (12.0-16.0); LYMPHOCYTES # (AUTO) 1.3 (1.0-3.2); LYMPHOCYTES % 20.3 % (18.0-39.1); MEAN CORPUSCULAR HEMOGLOBIN 29.8 pg (28-32); MEAN CORPUSCULAR VOLUME 87.6 fL (81-99); MONOCYTES # (AUTO) 0.4 (0.2-0.8); NEUTROPHILS # (AUTO) 4.4 (2.1-6.9); NEUTROPHILS % 70.5 % (38.7-80.0); PLATELET COUNT 264 x10e3/uL (140-360); RED CELL DISTRIBUTION WIDTH 13.8 % (11.7-14.4)
[2018-03-04 09:27] LABS: BILIRUBIN,URINE NEGATIVE (NEGATIVE); CLARITY,URINE SL CLOUDY (CLEAR); COLOR,URINE YELLOW (YELLOW); KETONES,URINE NEGATIVE (NEGATIVE); LEUKOCYTE ESTERASE ,URINE NEGATIVE (NEGATIVE); NITRITE,URINE NEGATIVE (NEGATIVE); PROTEIN,URINE DIPSTICK NEGATIVE (NEGATIVE); URINE UROBILINOGEN 0.2 mg/dL (0.2 - 1)
[2018-03-04 09:36] LABS: BACTERIA,URINE FEW /HPF; EPITHELIAL CELLS,URINE FEW /LPF
[2018-03-04 09:39] LABS: ALANINE AMINOTRANSFERASE 24 IU/L (0-55); ALBUMIN 3.5 g/dL (3.5-5.0); ALBUMIN/GLOBULIN RATIO 1.1 (0.8-2.0); ALKALINE PHOSPHATASE 107 IU/L (40-150); ANION GAP 15.3 mmol/L (8-16); BLOOD UREA NITROGEN 16 mg/dL (7-26); BUN/CREATININE RATIO 16 (6-25); CALCIUM 9.3 mg/dL (8.4-10.2); CARBON DIOXIDE 22 mmol/L (22-29); CHLORIDE 105 mmol/L (98-107); CREATININE, SERUM 0.99 mg/dL (0.57-1.11); EST GLOMERULAR FILTRATION RATE > 60 ML/MIN (60-); GLUCOSE 122 mg/dL (74-118); LIPASE 32 U/L (8-78); POTASSIUM 4.3 mmol/L (3.5-5.1); SODIUM 138 mmol/L (136-145)
[2018-03-04] MEDS ORDERED: ONDANSETRON HCL INJ 2 MG/ML VIAL IV STA (10:09)
[2018-03-04] MEDS ORDERED: MORPHINE SULFATE INJ 4 MG/ML INJ IV STA (10:09)
--- NOTE | 2018-03-04 11:35 | Diagnostic Imaging Report ---
EXAMINATION: CT of the chest, abdomen and pelvis with contrast. TECHNIQUE: Spiral CT images of the chest, abdomen and pelvis were performed from the lung apices to the lesser trochanters after the intravenous administration of 100 cc of Isovue-370. Thoracic imaging was performed per pulmonary embolus protocol. COMPARISON: CT abdomen and pelvis 01/21/2018 CLINICAL HISTORY:Recent hernia repair, shortness of breath, abdominal pain DISCUSSION: CHEST: Vasculature: The main pulmonary artery, right and left pulmonary arteries, and their visualized lobar and segmental branches are patent without filling defect. The pulmonary outflow tract is of normal caliber. There is no ectasia or aneurysmal dilatation of the thoracic aorta. Great vessel origins are normal in caliber and configuration. LUNGS AND AIRWAYS: Groundglass and reticular opacities in the dependent portions of the lower lobes. Scattered foci of groundglass opacity and hyperlucency in the upper lobes may relate to air trapping. No consolidation, mass lesion, or gross fibrotic change. PLEURA: No pleural effusion or pneumothorax. HEART AND MEDIASTINUM: Visualized portions of the thyroid gland appear normal. No axillary, hilar, or mediastinal lymphadenopathy. No pericardial effusion. No right ventricular dilatation or septal bowing. LYMPH NODES: As above. BONES AND SOFT TISSUES: No osseous destructive lesions or focal soft tissue abnormalities. ABDOMEN/PELVIS: HEPATOBILIARY:No focal hepatic lesion or intrahepatic biliary ductal dilatation. The gallbladder has been removed. SPLEEN: Heterogeneity of splenic attenuation reflects arterial phase of scan. No splenomegaly. PANCREAS: No focal mass or ductal dilatation. ADRENALS: No adrenal nodules. KIDNEYS/URETERS: Lobulated contour of the left kidney. Exophytic subcentimeter hypoattenuating lesion too small to further characterize though likely to represent a small cyst. No gross renal mass lesion or hydronephrosis. PELVIC ORGANS/BLADDER: The urinary bladder is unremarkable. The uterus is not identified and has presumably been removed. No adnexal mass. PERITONEUM/RETROPERITONEUM: No ascites. Tiny foci of pneumoperitoneum related to interval mesh repair of umbilical hernia. LYMPH NODES: No pelvic sidewall, retroperitoneal, or mesenteric lymphadenopathy. VESSELS: The abdominal aorta, major branch vessels, and iliac arterial systems are well-visualized and patent. Retroaortic left renal vein. Portal vein, splenic vein, and central superior mesenteric vein are patent. GI TRACT: The large bowel shows no evidence of distention or wall thickening. Concentric narrowing of the mid rectum is presumably related to peristalsis markedly redundant sigmoid colon. The appendix is not definitively identified. No small bowel dilatation to suggest obstruction. BONES AND SOFT TISSUES: Postsurgical changes related to mesh repair of umbilical hernia with scattered foci of subcutaneous and intraperitoneal gas with inflammatory changes of the subcutaneous fat. No loculated fluid collection. No additional focal soft tissue abnormalities. No osseous destructive lesions. IMPRESSION: No CT evidence of pulmonary embolus to the level of the segmental branch pulmonary arteries. Subsegmental atelectasis in the dependent portions of the lungs. Postsurgical changes related to interval mesh repair of small umbilical hernia, with expected small foci of subcutaneous and intraperitoneal air and inflammatory change of the subcutaneous fat. No organized fluid collection or inflammatory change of the underlying bowel. Signed by: Dr. Vasiliy Bae M.D. on 03/04/2018 11:31 AM
[2018-03-04] MEDS ORDERED: LEVAQUIN500 MG PO (11:50)
[2018-03-04 12:25] VITALS: BP 109/57
[2018-03-04] MEDS ORDERED: IOPAMIDOL 370 MG/ML 200 ML INFUS..BTL INJ ONE (18:20)
[2018-03-04] MEDS ORDERED: SODIUM CHLORIDE 0.9% 50ML 50 ML ONE (18:20)
== END 2018-03-04 12:33 | disposition home or self-care (01) ==
LOC: ER 08:29
DX: R10.32 Left lower quadrant pain (principal); R10.84 Generalized abdominal pain
CPT/HCPCS: 36415; 71260; 74177; 80053; 81001; 83690; 85025; 99284; J2270; J2405; J7030; Q9967

== ENCOUNTER 2018-03-28 08:28 | Emergency (ER) | payer OTHER ==
[~2018-03-28] VITALS: Ht 162.6 cm; Wt 99.8 kg
[~2018-03-28 08:28] MED LIST changes: +LEVAQUIN500 MG PO
--- OUTSIDE RECORDS SUMMARY | 2018-03-28 08:31 | XMS REPORT ---
Author Author Admin, [place] Organization [facility] Address Unknown Phone Unavailable Allergies, Adverse Reactions, Alerts Allergy Name Reaction Description Start Date Severity Status Provider No Known Allergies Bogdan Hand MD Conditions or Problems Problem Name Problem Code Onset Date Status Entry Date Provider Comment Standard Description Annotate DEPRESSIVE DISORDER, MAJOR, RECURRENT EPISODE, W/ PSYCHOTIC FEATURES Active Bogdan Hand MD INSOMNIA DISORDER, PERSISTENT Active Bogdan Hand MD Insomnia, unspecified PANIC DISORDER Active Bogdan Hand MD Panic disorder without agoraphobia PTSD Active Bogdan Hand MD Posttraumatic stress disorder Medication List Medication Instructions Start Date Stop Date Generic Name NDC Status Provider Patient Instruction WELLBUTRIN XL 150 MG ORAL TABLET EXTENDED RELEASE 24 HOUR Take one tablet By Mouth daily BUPROPION HCL 19137771063 Active Bogdan Hand MD Active AMITRIPTYLINE HCL 150 MG ORAL TABLET Take two tablets By Mouth at bedtime AMITRIPTYLINE HCL 01702846899 Active Bogdan Hand MD Active PRAZOSIN HCL 5 MG ORAL CAPSULE Take 3 capsules By Mouth at bedtime PRAZOSIN HCL 68292798731 Active Bogdan Hand MD Active LEXAPRO 20 MG ORAL TABLET Take one tablet By Mouth daily ESCITALOPRAM OXALATE 48429437345 Active Bogdan Hand MD Active VALIUM 10 MG ORAL TABLET Take one tablet By Mouth at bedtime for breakthrough anxiety DIAZEPAM 87442180912 Active Bogdan Hand MD Active LUNESTA 3 MG ORAL TABLET Take one tablet By Mouth at bedtime LUNESTA 3 MG ORAL TABLET 274569 ESZOPICLONE Inactive ZYPREXA 10 MG ORAL TABLET Take one tablet By Mouth daily ZYPREXA 10 MG ORAL TABLET 207514 OLANZAPINE Inactive LUNESTA 3 MG ORAL TABLET Take one tablet at bedtime LUNESTA 3 MG ORAL TABLET 472534 ESZOPICLONE Inactive LUNESTA 3 MG ORAL TABLET Take one tablet By Mouth at bedtime ESZOPICLONE 69408174795 No Longer Active Bogdan Hand MD Active TEMAZEPAM 30 MG ORAL CAPSULE Take one capsule By Mouth By Mouth at bedtime TEMAZEPAM 15099176925 No Longer Active Bogdan Hand MD Active ZYPREXA 10 MG ORAL TABLET Take one tablet By Mouth daily OLANZAPINE 32621114845 No Longer Active Bogdan Hand MD Active LORAZEPAM 2 MG ORAL TABLET Take one tablet By Mouth TID as needed for anxiety LORAZEPAM 61548744186 No Longer Active Bogdna Hand MD Active LUNESTA 3 MG ORAL TABLET Take one tablet at bedtime ESZOPICLONE 65481452295 No Longer Active Bogdan Hand MD Active Vital Signs Date Name Value Unit Range Description blood pressure, diastolic 72 mm[Hg] BP siddiqui blood pressure, systolic 101 mm[Hg] BP sys height E&M 64 [in_us] Bdy height pulse rate E&M 94 /min Heart rate weight E&M 229 [lb_av] Weight Measured blood pressure, diastolic 60 mm[Hg] BP siddiqui blood pressure, systolic 91 mm[Hg] BP sys height E&M 64 [in_us] Bdy height pulse rate E&M 89 /min Heart rate weight E&M 223 [lb_av] Weight Measured blood pressure, diastolic 67 mm[Hg] BP siddiqui blood pressure, systolic 102 mm[Hg] BP sys height E&M 64 [in_us] Bdy height pulse rate E&M 75 /min Heart rate weight E&M 222 [lb_av] Weight Measured blood pressure, diastolic 66 mm[Hg] BP siddiqui blood pressure, systolic 95 mm[Hg] BP sys height E&M 64 [in_us] Bdy height pulse rate E&M 88 /min Heart rate weight E&M 221 [lb_av] Weight Measured blood pressure, diastolic 63 mm[Hg] BP siddiqui blood pressure, systolic 105 mm[Hg] BP sys height E&M 64 [in_us] Bdy height pulse rate E&M 74 /min Heart rate weight E&M 218 [lb_av] Weight Measured blood pressure, diastolic 73 mm[Hg] BP siddiqui blood pressure, systolic 109 mm[Hg] BP sys height E&M 64 [in_us] Bdy height pulse rate E&M 74 /min Heart rate weight E&M 224 [lb_av] Weight Measured blood pressure, diastolic 81 mm[Hg] BP siddiqui [...] Measured Encounters Date Encounter Provider Code Facility 10:47:07 CDT Est Patient Exp Problem - [id number] Bogdan Hand MD CPT-92305 [facility] 08:46:49 CDT Est Patient Exp Problem - 52956 Bogdan Hand MD CPT-17295 [facility] 08:33:08 CDT Est Patient Detailed - [id number] Bogdan Hand MD CPT-48742 [facility] 08:31:14 CDT Est Patient Detailed - 79584 Bogdan Hand MD CPT-72315 [facility] 13:41:13 CDT Est Patient Detailed - 21418 Bogdan Hand MD CPT-00128 [facility] 19:16:18 CDT Est Patient Detailed - 96798 Bogdan Hand MD CPT-79388 [facility] 09:08:54 CDT Est Patient Detailed - 60415 Bogdan Hand MD CPT-99216 [facility] 08:21:45 CDT Est Patient Detailed - 85072 Bogdan Hand MD CPT-07149 [facility] Procedures Code Procedure Name Date Entry Date Standard Description CPT-29695 Psychotherapy 45 (38-52*) min - 81294 (with patient and/or family member) 13:05:22 CDT CPT-75380 Diagnostic evaluation (no medical) - 29110 10:06:21 CDT CPT-97145 Diagnostic evaluation with medical - 99949 20:46:14 CDT
--- OUTSIDE RECORDS SUMMARY | 2018-03-28 08:31 | XMS REPORT | Clinical Summary ---
Author Author RICK [facility] Address Unknown Phone Unavailable Care Team Providers Care Addiction Therapist Name Role Phone Sharpless PCP Unavailable Allergies Comments Active Allergy Reactions Severity Noted Date Codeine 10/25/2017 Tramadol 10/25/2017 Medications End Date Status Medication Sig Dispensed Refills Start Date 10/25/2018 Active dicyclomine (BENTYL) 20 Take 1 tablet 20 tablet 0 10/25/201 mg tablet (20 mg total) 8 by mouth 2 (two) times daily. 11/01/2017 ondansetron (ZOFRAN) 4 MG Take 1 tablet 12 tablet 0 10/25/201 tablet (4 mg total) 8 by mouth every 6 (six) hours for 7 days. Active Problems Problem Noted Date Abdominal pain, unspecified abdominal location 10/25/2017 Nausea vomiting and diarrhea 10/25/2017 Mild dehydration 10/25/2017 Encounters Care Team Description Date Type Specialty Viola, Margie Weeks DO Abdominal pain, unspecified abdominal location (Primary Dx); Nausea vomiting and diarrhea; Mild dehydration 10/25/2017 Emergency Emergency Medicine after 03/27/2017 Social History Date Tobacco Use Types Packs/Day Years Used Never Assessed Sex Assigned at Date Recorded Not on file Industry Job Start Date Occupation Not on file Not on file Not on file Travel End Travel History Travel Start No recent travel history available. Last Filed Vital Signs Time Taken Vital Sign Reading 10/25/2017 9:18 AM CDT Blood Pressure 99/61 10/25/2017 9:18 AM CDT Pulse 78 10/25/2017 8:08 AM CDT Temperature 36.8 C (98.2 F) 10/25/2017 9:18 AM CDT Respiratory Rate 18 10/25/2017 9:18 AM CDT Oxygen Saturation 97% - Inhaled Oxygen - Concentration 10/25/2017 8:10 AM CDT Weight 68 kg (150 lb) 10/25/2017 8:08 AM CDT Height 162.6 cm (5' 4") 10/25/2017 8:10 AM CDT Body Mass Index 25.75 Plan of Treatment Not on file Procedures Comments Procedure Name Priority Date/Time Associated Diagnosis CT ABDOMEN/PELVIS WITH IV STAT 10/25/2017 CONTRAST 10:19 AM CDT CBC W/PLT COUNT & AUTO STAT 10/25/2017 DIFFERENTIAL 8:37 AM CDT COMPREHENSIVE METABOLIC STAT 10/25/2017 PANEL 8:37 AM CDT URINALYSIS W/ REFLEX STAT 10/25/2017 URINE CULTURE 8:37 AM CDT LIPASE STAT 10/25/2017 8:37 AM CDT CBC W/PLT COUNT & AUTO STAT 10/25/2017 DIFFERENTIAL 8:37 AM CDT URINE CULTURE STAT 10/25/2017 8:37 AM CDT after 03/27/2017 Results * CT abdomen pelvis with IV contrast (10/25/2017 10:19 AM CDT) Narrative Performed At FINAL REPORT [facility] CT of the abdomen and pelvis, with [...] MD Report Verified Date/Time:10/25/2017 10:25:23 Reading Location: [facility] C013 Ortho Consult Reading Room Procedure Note Interface, External [...] Report Verified Date/Time: 10/25/2017 10:25:23 Reading Location: [facility] [id number] Ortho Consult Reading Room Performing Organization Address City/State/Zipcode Phone Number [facility] * Urinalysis w/Microscopic + Reflex to Culture (10/25/2017 8:37 AM CDT) Color, UA Light Yellow [facility] Clarity, UA Clear [facility] Specific Mitchell, UA 1.005 1.001 - 1.035 [facility] pH, UA 6.0 5.0 - 8.0 [facility] Protein, UA Negative Negative [facility] Glucose, UA Negative Negative [facility] Ketones, UA Negative Negative [facility] Bilirubin, UA Negative Negative [facility] Blood, UA Negative Negative [facility] Nitrite, UA Negative Negative [facility] Leukocytes, UA Negative Negative [facility] Urobilinogen, UA 0.2 0.2 - 1.0 mg/dL [facility] RBC, UA <1 /HPF [facility] WBC, UA 6 /HPF [facility] Bacteria, UA Rare [facility] Mucus Rare [facility] Squam Epithel, UA 3 /HPF [facility] Amorphous Crystals Rare [facility] Specimen Source [facility] Specimen Urine - Urine, Clean Catch Performing Organization Address City/State/Zipcode Phone Number [facility] [address] [place] [address] [facility] * CBC with platelet count + automated diff (10/25/2017 8:37 AM CDT) WBC 6.2 3.5 - 10.5 K/L [facility] RBC 4.48 3.93 - 5.22 M/L [facility] Hemoglobin 12.7 11.2 - 15.7 GM/DL [facility] Hematocrit 39.5 34.1 - 44.9 % [facility] MCV 88.2 79.4 - 94.8 fL [facility] MCH 28.3 25.6 - 32.2 pg [facility] MCHC 32.2 32.2 - 35.5 GM/DL [facility] RDW 13.9 11.7 - 14.4 % [facility] Platelets 259 150 - 450 K/CU MM [facility] MPV 9.6 9.4 - 12.3 fL [facility] nRBC 0 0 - 0 /100 WBC [facility] % Neutros 67 % [facility] % Lymphs 25 % [facility] % Monos 6 % [facility] % Eos 2 % [facility] % Baso 0 % [facility] # Neutros 4.15 1.56 - 6.13 K/L [facility] # Lymphs 1.52 1.18 - 3.74 K/L [facility] # Monos 0.38 (H) 0.24 - 0.36 K/L [facility] # Eos 0.09 0.04 - 0.36 K/L [facility] # Baso 0.02 0.01 - 0.08 K/L [facility] Immature 1 0 - 1 % Granulocytes-[facility] Specimen Blood Performing Organization Address City/State/Zipcode Phone Number [facility] [address] [place] [address] [facility] * Urine culture (10/25/2017 8:37 AM CDT) Result (A) [facility] Specimen Urine - Urine, Clean Catch Narrative Performed At 10-19,000 col/mL skin ronaldo [facility] Antibiotic Method Susceptibility Organism Amikacin <=2: Susceptible Escherichia coli Ampicillin + Sulbactam <=2: Susceptible Escherichia coli Aztreonam <=1: Susceptible Escherichia coli Cefepime <=1: Susceptible Escherichia coli Cefoxitin <=4: Susceptible Escherichia coli Ceftazidime <=1: Susceptible Escherichia coli Ceftriaxone <=1: Susceptible Escherichia coli Ertapenem <=0.5: Susceptible Escherichia coli Gentamicin <=1: Susceptible Escherichia coli Levofloxacin 1: Susceptible Escherichia coli Meropenem <=0.25: Susceptible Escherichia coli Nitrofurantoin <=16: Susceptible Escherichia coli Piperacillin + Tazobactam <=4: Susceptible Escherichia coli Tetracycline <=1: Susceptible Escherichia coli Tobramycin <=1: Susceptible Escherichia coli Trimethoprim + Sulfamethoxazole <=20: Susceptible Escherichia coli Performing Organization Address [facility] Phone Number [address] * Lipase (10/25/2017 8:37 AM CDT) Lipase 40 8 - 78 U/L [facility] Specimen Blood Performing Organization Address City/[facility] Phone Number [address] * Comprehensive metabolic panel (10/25/2017 8:37 AM CDT) Protein, Total 6.3 6.0 - 8.3 gm/dL [facility] Albumin 3.9 3.5 - 5.0 g/dL [facility] Alkaline Phosphatase 80 40 - 150 U/L [facility] Total Bilirubin 0.2 0.2 - 1.2 mg/dL [facility] Sodium 142 136 - 145 meq/L [facility] Potassium 3.8 3.5 - 5.1 meq/L [facility] Chloride 111 (H) 98 - 107 meq/L [facility] CO2 23 22 - 29 meq/L [facility] BUN 14 7 - 21 mg/dL [facility] Creatinine 0.80 0.57 - 1.25 mg/dL [facility] Glucose 126 (H) 70 - 105 mg/dL [facility] Calcium 8.8 8.4 - 10.2 mg/dL [facility] AST 14 5 - 34 U/L [facility] ALT 21 6 - 55 U/L [facility] EGFR 80Comment: ESTIMATED GFR IS mL/min/1.73 sq m NOT ACCURATE CREATININE [facility] CLEARANCE IN PREDICTING GLOMERULAR FILTRATION RATE. ESTIMATED GFR IS NOT APPLICABLE FOR DIALYSIS PATIENTS. Specimen Blood Performing Organization Address City/State/Zipcode Phone Number [facility] [address] [place] [address] [facility] after 03/27/2017 Insurance Payer Benefit Subscriber ID Type Phone Address Plan / Group MEDICAID - MEDICAID MGD MEDICAID xxxxxxxxx Medicaid [employer] Non-Contra NON-CONTRA cted CT
--- OUTSIDE RECORDS SUMMARY | 2018-03-28 08:31 | XMS REPORT | Clinical Summary ---
Author Author [facility] Organization [facility] Address Unknown Phone Unavailable Care Team Providers Care Practice Director Name Role Phone Asked, No Pcp PCP Unavailable Allergies Active Allergy Reactions Severity Noted Date Comments Codeine Other (See Comments) 03/05/2018 shaking Tramadol Other (See Comments) 03/05/2018 shaking Current Medications Prescription Sig. Disp. Refills Start End Date Status Date keTOROlac (TORadol) 10 mg Take 10 mg by mouth every Active tablet 6 (six) hours as needed for moderate pain. Active Problems Not on file Encounters Date Type Specialty Care Team Description 03/05/2018 Emergency Emergency Medicine Carlos, Ofelia Denny MD Chest pain, unspecified type (Primary Dx) after 03/27/2017 Social History Tobacco Use Types Packs/Day Years Used Date Former Smoker Cigarettes 10 Quit: 2004 Smokeless Tobacco: Never Used Alcohol Use Drinks/Week oz/Week Comments Yes "two or three beers in a month; it's rare" Sex Assigned at Date Recorded Not on file Last Filed Vital Signs Vital Sign Reading Time Taken Blood Pressure 124/77 03/05/2018 1:30 PM CDT Pulse 78 03/05/2018 1:30 PM CDT Temperature 36.8 C (98.3 F) 03/05/2018 8:49 AM CDT Respiratory Rate 25 03/05/2018 1:30 PM CDT Oxygen Saturation 97% 03/05/2018 1:30 PM CDT Inhaled Oxygen - - Concentration Weight - - Height 162.6 cm (5' 4") 03/05/2018 11:16 AM CDT Body Mass Index - - Plan of Treatment Health Maintenance Due Date Last Done Comments CERVICAL CANCER SCREENING 1998 INFLUENZA VACCINE 12/30/2017 Procedures Procedure Name Priority Date/Time Associated Diagnosis Comments LACTIC ACID LEVEL, SEPSIS Timed 03/05/2018 Results for this - NOW AND REPEAT 2X EVERY 1:15 PM CDT procedure are in the [address] CHEST W CONTRAST STAT 03/05/2018 Results for this ABDOMEN W CONTRAST PELVIS 1:02 PM CDT procedure are in the W CONTRAST results section. PARTIAL THROMBOPLASTIN STAT 03/05/2018 Results for this TIME (PTT) 10:15 AM CDT procedure are in the results section. PROTHROMBIN TIME WITH INR STAT 03/05/2018 Results for this 10:15 AM CDT procedure are in the results section. TROPONIN STAT 03/05/2018 Results for this 10:15 AM CDT procedure are in the results section. ESTIMATED GFR STAT 03/05/2018 Results for this 10:15 AM CDT procedure are in the results section. TYPE AND SCREEN Routine 03/05/2018 Results for this 10:15 AM CDT procedure are in the results section. LACTIC ACID LEVEL, SEPSIS STAT 03/05/2018 Results for this - NOW AND REPEAT 2X EVERY 10:15 AM CDT procedure are in the 3 HOURS results section. LIPASE LEVEL STAT 03/05/2018 Results for this 10:15 AM CDT procedure are in the results section. D-DIMER STAT 03/05/2018 Results for this 10:15 AM CDT procedure are in the results section. BASIC METABOLIC PANEL STAT 03/05/2018 Results for this 10:15 AM CDT procedure are in the results section. HC COMPLETE BLD COUNT STAT 03/05/2018 Results for this W/AUTO DIFF 10:15 AM CDT procedure are in the results section. B NATRIURETIC PEPTIDE STAT 03/05/2018 Results for this 10:15 AM CDT procedure are in the results section. XR CHEST 1 VW STAT 03/05/2018 Results for this 10:02 AM CDT procedure are in the results section. XR ABDOMEN 1 VW STAT 03/05/2018 Results for this 10:02 AM CDT procedure are in the results section. ECG 12-LEAD STAT 03/05/2018 Results for this 9:02 AM CDT procedure are in the results section. after 03/27/2017 Results * Lactic acid level, SEPSIS - Now and repeat 2x every 3 hours (03/05/2018 1:15 PM) Only the most recent of 2 results within the time period is included. Lactic acid 1.4 0.5 - 2.2 mmol/L [facility] DEPARTMENT OF PATHOLOGY AND GENOMIC MEDICINE Specimen Blood Performing Organization Address City/State/Zipcode Phone Number [facility] DEPARTMENT OF [address] [place] [address] PATHOLOGY AND GENOMIC MEDICINE * CT Chest W Contrast Abdomen W Contrast Pelvis W Contrast (03/05/2018 1:02 PM) Narrative Performed At EXAMINATION:CT CHEST W CONTRAST ABDOMEN W CONTRAST PELVIS W CONTRAST [facility] History: chest pain COMPARISON: None. TECHNIQUE: Multiple axial CT images of the chest performed With IV contrast.. Coronal and sagittal reconstructions were done. CT imaging was performed with iterative reconstruction technique and/or automated exposure control to reduce radiation dose. FINDINGS: LUNGS: Mild atelectasis of the lung bases and trace lateral pleural effusions. No consolidations. AIRWAYS: No central endobronchial or endotracheal lesions are seen. MEDIASTINUM: The thoracic aorta is without aneurysm or dissection. The pulmonary arteries are unremarkable. Cardiac chambers are within normal limits. No significant pericardial effusion is present. No enlarged mediastinal or hilar lymph nodes present. The esophagus is unremarkable. BONES AND OVERLYING SOFT TISSUES: The visualized bones are without destructive lesions. No enlarged axillary lymph nodes present. VISUALIZED LOWER NECK :Unremarkable. IMPRESSION: Trace bilateral pleural effusions with mild atelectasis of the lung bases. COMPARISON:None. TECHNIQUE: Multiple axial CT images of the Abdomen and pelviswere obtained With IV contrast Oral contrast was administered. sagittal and coronal reconstructions were done. CT imaging was performed with iterative reconstruction technique and/or automated exposure control to reduce radiation dose. FINDINGS: HEPATOBILIARY:Fatty infiltration without focal lesions. Main portal vein is patent. GALLBLADDER: Absent. SPLEEN:No splenomegaly. PANCREAS:No focal masses or ductal dilation. ADRENALS:No adrenal nodules. KIDNEYS:Possible 2 mm nonobstructing bilateral kidney stones. No hydronephrosis bilaterally. PERITONEUM/RETROPERITONEUM:No free air or fluid. No lymphadenopathy. ABDOMINAL AORTA/IVC: No aneurysm or dissection. GI TRACT:Visualized portions of the bowel demonstrate no distention or wall thickening. The appendix is normal. No signs of diverticulitis. A moderate amount also is present within the colon. PELVIC ORGANS/BLADDER:Urinary bladder is fluid-filled. Uterus and ovaries are absent. BONES AND SOFT TISSUES:No acute abnormalities of the bones. Postoperative changes of recent ventral hernia repair. No fluid collections. IMPRESSION: No acute abnormality. [id number] Procedure Note Hm Interface, Radiology Results Incoming - 03/05/2018 1:42 PM CDT EXAMINATION: CT CHEST W CONTRAST ABDOMEN W CONTRAST PELVIS W CONTRAST History: chest pain COMPARISON: None. TECHNIQUE: Multiple axial CT images of the chest performed With IV contrast.. Coronal and sagittal reconstructions were done. CT imaging was performed with iterative reconstruction technique and/or automated exposure control to reduce radiation dose. FINDINGS: LUNGS: Mild atelectasis of the lung bases and trace lateral pleural effusions. No consolidations. AIRWAYS: No central endobronchial or endotracheal lesions are seen. MEDIASTINUM: The thoracic aorta is without aneurysm or dissection. The pulmonary arteries are unremarkable. Cardiac chambers are within normal limits. No significant pericardial effusion is present. No enlarged mediastinal or hilar lymph nodes present. The esophagus is unremarkable. BONES AND OVERLYING SOFT TISSUES: The visualized bones are without destructive lesions. No enlarged axillary lymph nodes present. VISUALIZED LOWER NECK :Unremarkable. IMPRESSION: Trace bilateral pleural effusions with mild atelectasis of the lung bases. COMPARISON: None. TECHNIQUE: Multiple axial CT images of the Abdomen and pelviswere obtained With IV contrast Oral contrast was administered. sagittal and coronal reconstructions were done. CT imaging was performed with iterative reconstruction technique and/or automated exposure control to reduce radiation dose. FINDINGS: HEPATOBILIARY: Fatty infiltration without focal lesions. Main portal vein is patent. GALLBLADDER: Absent. SPLEEN: No splenomegaly. PANCREAS: No focal masses or ductal dilation. ADRENALS: No adrenal nodules. KIDNEYS: Possible 2 mm nonobstructing bilateral kidney stones. No hydronephrosis bilaterally. PERITONEUM/RETROPERITONEUM: No free air or fluid. No lymphadenopathy. ABDOMINAL AORTA/IVC: No aneurysm or dissection. GI TRACT: Visualized portions of the bowel demonstrate no distention or wall thickening. The appendix is normal. No signs of diverticulitis. A moderate amount also is present within the colon. PELVIC ORGANS/BLADDER: Urinary bladder is fluid-filled. Uterus and ovaries are absent. BONES AND SOFT TISSUES: No acute abnormalities of the bones. Postoperative changes of recent ventral hernia repair. No fluid collections. IMPRESSION: No acute abnormality. [id number] Performing Organization Address City/State/Zipcode Phone Number [facility] [address] [place] [address] * Estimated GFR (03/05/2018 10:15 AM) Estimated GFR 87 mL/min/1.73 m2 [facility] DEPARTMENT OF Comment: PATHOLOGY AND [employer]ory[employer]itsInte GENOMIC MEDICINE rpretation G1 >=90 Normal or high G2 60-89Mildly decreased [id number] Mildly to moderately decreased [id number] Moderately to severely decreased G4 15-29Severely decreased G5 <15Kidney failure The eGFR was calculated using the Chronic Kidney Disease Epidemiology Collaboration (CKD-EPI) equation. Interpretation is based on recommendations of the National Kidney Foundation-Kidney Disease Outcomes Quality Initiative (NKF-KDOQI) published in 2014. Specimen Plasma specimen Performing Organization Address City/[facility]/[place] [address] PATHOLOGY AND transOMIC MEDICINE * Troponin (03/05/2018 10:15 AM) Troponin <0.30 0.00 - 0.30 ng/mL [facility] DEPARTMENT OF Comment: PATHOLOGY AND 0.30 - 1.49 GENOMIC MEDICINE ng/mlMay indicate increased risk of acute coronary syndrome. >=1.5 ng/ml Consistent with acute myocardial infarction. The diagnostic value of a single normal or non-diagnostic result is questionable.Serial samples at 2-6 hour intervals are required to rule out acute myocardial injury. Specimen Plasma specimen Performing Organization Address [facility] [place] [address] PATHOLOGY AND transOMIC MEDICINE * Partial thromboplastin time, activated (03/05/2018 10:15 AM) PTT 29.9 23.0 - 36.0 sec [facility] DEPARTMENT OF Comment: PATHOLOGY AND PTT therapeutic range for GENOMIC MEDICINE unfractionated heparin is 61.0-112.0 seconds which corresponds to Anti-Xa 0.3-0.7 U/ml. Specimen Blood Performing Organization Address [facility]/[place] [address] PATHOLOGY AND transOMIC MEDICINE * Prothrombin time with INR (03/05/2018 10:15 AM) Prothrombin time 14.1 12.0 - 15.0 sec [facility] DEPARTMENT OF PATHOLOGY AND GENOMIC MEDICINE INR 1.1 [facility] DEPARTMENT OF Comment: PATHOLOGY AND The International Normalized GENOMIC MEDICINE Ratio (INR) is a therapeutic monitoring tool for patients who are stable on oral anticoagulant therapy. An INR of 2.0-3.0 is suggested for deep vein thrombosis/pulmonary embolism. Specimen Blood Performing Organization Address [facility]/Zipcode Phone Number [facility] OF [address] [place] [id number] PATHOLOGY AND GENOMIC MEDICINE * D-dimer (03/05/2018 10:15 AM) D-dimer 0.92 (H) 0.00 - 0.40 ug/mL FEU [facility] DEPARTMENT OF Comment: PATHOLOGY AND Units are ug/ml Fibrinogen GENOMIC MEDICINE Equivalent Unit. When combined with low clinical probability, D-dimer results of less than 0.5 ug/ml FEU have a good negativepredictive value in excluding PE or DVT. For D-dimer results greater than 0.5ug/ml FEU further testing is indicated if PE or DVT is suspectedclinically. Elevated D-dimer results have been reported in DVT, PE, and DIC cases and may indicate the presence of a clot. D-dimer results may be elevated due to old age, , inflammatory diseases, trauma, post-operative states, sepsis, and malignancies. Specimen Blood Performing Organization Address [facility] Phone Number [address] [address] PATHOLOGY AND transOMIC MEDICINE * CBC with platelet and differential (03/05/2018 10:15 AM) WBC 6.28 4.50 - 11.00 k/uL [facility] DEPARTMENT OF PATHOLOGY AND GENOMIC MEDICINE RBC 3.96 (L) 4.20 - 5.50 m/uL [facility] DEPARTMENT OF PATHOLOGY AND GENOMIC MEDICINE HGB 11.5 (L) 12.0 - 16.0 g/dL [facility] DEPARTMENT OF PATHOLOGY AND GENOMIC MEDICINE HCT 35.4 (L) 37.0 - 47.0 % [facility] DEPARTMENT OF PATHOLOGY AND GENOMIC MEDICINE MCV 89.4 82.0 - 100.0 fL [facility] DEPARTMENT OF PATHOLOGY AND GENOMIC MEDICINE MCH 29.0 27.0 - 34.0 pg [facility] DEPARTMENT OF PATHOLOGY AND GENOMIC MEDICINE MCHC 32.5 31.0 - 37.0 g/dL [facility] DEPARTMENT OF PATHOLOGY AND GENOMIC MEDICINE RDW - SD 45.1 37.0 - 55.0 fL [facility] DEPARTMENT OF PATHOLOGY AND GENOMIC MEDICINE MPV 8.9 8.8 - 13.2 fL [facility] DEPARTMENT OF PATHOLOGY AND GENOMIC MEDICINE Platelet count 241 150 - 400 k/uL [facility] DEPARTMENT OF PATHOLOGY AND GENOMIC MEDICINE Nucleated RBC 0.00 /100 WBC [facility] DEPARTMENT OF PATHOLOGY AND GENOMIC MEDICINE Neutrophils 66.0 39.0 - 69.0 % [facility] DEPARTMENT OF PATHOLOGY AND GENOMIC MEDICINE Lymphocytes 24.8 (L) 25.0 - 45.0 % [facility] DEPARTMENT OF PATHOLOGY AND GENOMIC MEDICINE Monocytes 6.1 0.0 - 10.0 % [facility] DEPARTMENT OF PATHOLOGY AND GENOMIC MEDICINE Eosinophils 2.2 0.0 - 5.0 % [facility] DEPARTMENT OF PATHOLOGY AND GENOMIC MEDICINE Basophils 0.6 0.0 - 1.0 % [facility] DEPARTMENT OF PATHOLOGY AND GENOMIC MEDICINE Immature granulocytes 0.3Comment: "Immature 0.0 - 1.0 % [facility] DEPARTMENT OF granulocytes" (promyelocytes, PATHOLOGY AND myelocytes, metamyelocytes) GENOMIC MEDICINE Specimen Blood Performing Organization Address [facility] [place] [address] PATHOLOGY AND GENOMIC MEDICINE * Type and screen (03/05/2018 10:15 AM) ABO grouping O [facility] DEPARTMENT OF PATHOLOGY AND GENOMIC MEDICINE Rh type POS [facility] DEPARTMENT OF PATHOLOGY AND GENOMIC MEDICINE Antibody screen (gel) NEG [facility] DEPARTMENT OF PATHOLOGY AND GENOMIC MEDICINE Specimen Blood Performing Organization Address [facility] [place] [address] PATHOLOGY [facility] * B natriuretic peptide (03/05/2018 10:15 AM) BNP 11 0 - 100 pg/mL [facility] DEPARTMENT OF PATHOLOGY AND GENOMIC MEDICINE Specimen Blood Performing Organization Address [facility] [place] [address] PATHOLOGY [facility] * Lipase level (03/05/2018 10:15 AM) Lipase 20 13 - 60 U/L [facility] DEPARTMENT OF PATHOLOGY AND GENOMIC MEDICINE Specimen Plasma specimen Performing Organization Address [facility] [place] [address] PATHOLOGY [facility] * Basic metabolic panel (03/05/2018 10:15 AM) Sodium 141 135 - 148 mEq/L [facility] DEPARTMENT OF PATHOLOGY AND GENOMIC MEDICINE Potassium 4.5 3.5 - 5.0 mEq/L [facility] DEPARTMENT OF PATHOLOGY AND GENOMIC MEDICINE Chloride 103 98 - 112 mEq/L [facility] DEPARTMENT OF PATHOLOGY AND GENOMIC MEDICINE CO2 27 24 - 31 mEq/L [facility] DEPARTMENT OF PATHOLOGY AND GENOMIC MEDICINE Anion gap 11@ANIO 7 - 15 mEq/L [facility] DEPARTMENT OF PATHOLOGY AND GENOMIC MEDICINE BUN 10 6 - 20 mg/dL [facility] DEPARTMENT OF PATHOLOGY AND GENOMIC MEDICINE Creatinine 0.84 0.50 - 0.90 mg/dL [facility] DEPARTMENT OF PATHOLOGY AND GENOMIC MEDICINE Glucose 85 65 - 99 mg/dL [facility] DEPARTMENT OF PATHOLOGY AND GENOMIC MEDICINE Calcium 8.3 8.3 - 10.2 mg/dL [facility] DEPARTMENT OF PATHOLOGY AND GENOMIC MEDICINE Specimen Plasma specimen Performing Organization Address City/[facility]/Zipcode Phone Number [address] [address] PATHOLOGY AND GENOMIC MEDICINE * XR Chest 1 Vw (03/05/2018 10:02 AM) Narrative Performed At EXAM: [facility] XR CHEST 1 VW INDICATION: Chest painACS suspected COMPARISON: None. IMPRESSION: Surgical clips right upper quadrant. Minimal linear opacity lateral aspect left lower lung, discoid atelectasis versus scar/fibrosis. No consolidation, pleural effusion, pneumothorax. Heart size is normal. Minimal degenerative changes thoracic spine. [facility]-[id number] Procedure Note Interface, Radiology Results Incoming - 03/05/2018 10:06 AM CDT EXAM: XR CHEST 1 VW INDICATION: Chest pain ACS suspected COMPARISON: None. IMPRESSION: Surgical clips right upper quadrant. Minimal linear opacity lateral aspect left lower lung, discoid atelectasis versus scar/fibrosis. No consolidation, pleural effusion, pneumothorax. Heart size is normal. Minimal degenerative changes thoracic spine. [facility]-[id number] Performing Organization Address City/[facility] Phone Number [facility] [address] [place] [address] * XR Abdomen 1 Vw (03/05/2018 10:02 AM) Narrative Performed At Examination:[facility] history:"Abd painunspecified" Comparison: None IMPRESSION:The bowel gas pattern is nonspecific. Densities compatible with anterior abdominal wall mesh are noted. There is no evidence of acute disease within the imaged portions of both lung bases. The imaged bones appear to be within normal limits. Surgical clips are seen in the right upper quadrant. [id number] Procedure Note Hm Interface, Radiology Results Incoming - 03/05/2018 10:06 AM CDT Examination: XR ABDOMEN 1 VW Clinical history: "Abd pain unspecified" Comparison: None IMPRESSION: The bowel gas pattern is nonspecific. Densities compatible with anterior abdominal wall mesh are noted. There is no evidence of acute disease within the imaged portions of both lung bases. The imaged bones appear to be within normal limits. Surgical clips are seen in the right upper quadrant. [id number] Performing Organization Address [facility] Phone Number [facility] [address] [place] [address] * ECG 12 lead (03/05/2018 9:02 AM) Ventricular rate 94 [facility] Atrial rate 94 [facility] ME interval 194 [facility] QRSD interval 128 [facility] QT interval 388 [facility] QTC interval 485 [facility] P axis 1 50 [facility] QRS axis 1 22 [facility] T wave axis 48 [facility] EKG impression Normal sinus [facility] rhythm-Nonspecific intraventricular block-Abnormal ECG-No previous ECGs available- Performing Organization Address [facility] Phone Number [employer] [facility] [address] [place] [address] after 03/27/2017 Insurance Payer Benefit Subscriber ID Type Phone Address Plan / Group [employer] xxxxxxxx O [facility] Home: [id number] [facility] [place] [id number]
[2018-03-28] MEDS ORDERED: SODIUM CHLORIDE 0.9% 1000ML 1,000 ML IV STA (08:57)
[2018-03-28] MEDS ORDERED: DIATRIZOATE MEGL/DIATRIZOA SOD 30 ML BTL PO ONE (09:05)
[2018-03-28 09:09] LABS: BASOPHILS % 0.5 % (0.0-1.0); EOSINOPHILS # (AUTO) 0.1 (0.0-0.4); EOSINOPHILS % 2.3 % (0.0-6.0); HEMATOCRIT 38.1 % (34.2-44.1); HEMOGLOBIN 12.7 g/dL (12.0-16.0); LYMPHOCYTES # (AUTO) 1.7 (1.0-3.2); MEAN CORPUSCULAR HEMOGLOBIN 29.5 pg (28-32); MEAN CORPUSCULAR HGB CONC 33.3 g/dL (31-35); MEAN CORPUSCULAR VOLUME 88.6 fL (81-99); MONOCYTES # (AUTO) 0.3 (0.2-0.8); MONOCYTES % 4.9 % (4.4-11.3); NEUTROPHILS # (AUTO) 3.6 (2.1-6.9); NEUTROPHILS % 63.1 % (38.7-80.0); PLATELET COUNT 265 x10e3/uL (140-360); RED CELL DISTRIBUTION WIDTH 13.8 % (11.7-14.4)
[2018-03-28 09:23] LABS: CLARITY,URINE HAZY (CLEAR); COLOR,URINE YELLOW (YELLOW)
[2018-03-28 09:24] LABS: BACTERIA,URINE MANY /HPF; BILIRUBIN,URINE NEGATIVE (NEGATIVE); EPITHELIAL CELLS,URINE MANY /LPF; KETONES,URINE NEGATIVE (NEGATIVE); LEUKOCYTE ESTERASE ,URINE NEGATIVE (NEGATIVE); NITRITE,URINE NEGATIVE (NEGATIVE); PROTEIN,URINE DIPSTICK NEGATIVE (NEGATIVE); RBC,URINE 0-5 /HPF (0-5); URINE UROBILINOGEN 0.2 mg/dL (0.2 - 1); WBC,URINE (MAN) 0-5 /HPF (0-5)
[2018-03-28 09:25] LABS: ALANINE AMINOTRANSFERASE 23 IU/L (0-55); ALBUMIN 3.7 g/dL (3.5-5.0); ALBUMIN/GLOBULIN RATIO 1.2 (0.8-2.0); ALKALINE PHOSPHATASE 113 IU/L (40-150); AMYLASE 101 U/L (25-125); BLOOD UREA NITROGEN 13 mg/dL (7-26); BUN/CREATININE RATIO 14 (6-25); CALCIUM 9.2 mg/dL (8.4-10.2); CARBON DIOXIDE 24 mmol/L (22-29); CHLORIDE 106 mmol/L (98-107); CREATININE, SERUM 0.91 mg/dL (0.57-1.11); EST GLOMERULAR FILTRATION RATE > 60 ML/MIN (60-); GLUCOSE 130 mg/dL (74-118); LIPASE 45 U/L (8-78); SODIUM 138 mmol/L (136-145)
[2018-03-28] MEDS ORDERED: FAMOTIDINE 20 MG/2 ML VIAL IV ONE (09:30)
[2018-03-28] MEDS ORDERED: ONDANSETRON HCL INJ 2 MG/ML VIAL IV ONE (09:30)
[2018-03-28] MEDS ORDERED: PROMETHAZINE 25MG/SOD CHL 0.9% 50 ML ONE (09:59)
[2018-03-28] MEDS ORDERED: PROMETHAZINE 12.5MG/ NACL 0.9% 12.5 MG/50 ML BAG IV ONE (10:00)
--- NOTE | 2018-03-28 11:09 | Diagnostic Imaging Report ---
CT Abdomen And Pelvis with Intravenous Contrast INDICATION: Status post hernia repair 03/01/2018, nausea, vomiting TECHNIQUE: Thin collimation axial images obtained from the diaphragm to the level of the pubic symphysis following the uneventful administration of 100 cc of low osmolar, nonionic intravenous contrast. Oral contrast was administered. [facility] DOSE: Total DLP: 869.2 mGy*cm Estimated effective dose: (DLP x 0.015 x size factor) mSv CTDIvol has been reviewed. It is below the limits set by the Radiation Protocol Committee (RPC). COMPARISON: CT abdomen/pelvis 03/04/2018. ABDOMEN FINDINGS: Lung Bases: Small posterior pleural effusions and bibasilar atelectasis. Liver: Decreased attenuation consistent with steatosis.. No evidence for mass. Gallbladder: Absent. No biliary ductal dilatation. Pancreas: Normal attenuation without mass or ductal dilatation. Spleen: Normal in size. No evidence of mass. Adrenal Glands: No evidence for mass. Kidneys: Right: Normal enhancement. No soft tissue mass. Punctate calculus in the interpolar region. No hydronephrosis. Left: Normal enhancement. Lobulated contour. Lower pole low attenuating lesion is stable. No soft tissue mass. Punctate intrarenal calculus is stable. No hydronephrosis. There is a retroaortic left renal vein. Lymph Nodes: No enlarged abdominal or periaortic lymph nodes. Aorta: Normal in diameter. PELVIS FINDINGS: Bowel: Stomach: Collapsed but normal. Small Bowel: Normal in caliber with normal wall thickness. Large Bowel: Moderate burden of stool in the colon, particularly the left colon. No mural thickening or pericolonic inflammation. Appendix: Normal appendix. Bladder: Well distended and normal. No ureteral dilatation. The uterus is absent. No adnexal mass. No free fluid or fluid collection. Bones: Bone islands in L5 are stable. No destructive lesions. Soft tissues: Mesh in the anterior abdomen wall at the umbilicus is stable. There is no evidence of surrounding fluid collection. No hernia recurrence. IMPRESSION: 1. Stable postoperative appearance of the abdomen wall. 2. No evidence of abscess. 3. Moderate burden of stool in the large bowel without obstruction. 4. Steatosis. 5. Multiple intrarenal calculi. No obstructive uropathy. Signed by: Dr. Diallo Campbell MD on 03/28/2018 11:06 AM
== END 2018-03-28 12:15 | disposition home or self-care (01) ==
LOC: ER 08:28
DX: R10.32 Left lower quadrant pain (principal); R10.12 Left upper quadrant pain; K59.00 Constipation, unspecified
CPT/HCPCS: 36415; 74177; 80053; 81001; 82150; 83690; 84702; 85025; 99284; J2405; J2550; J7030; Q9663

== ENCOUNTER 2018-03-31 08:02 | Emergency (ER) | payer OTHER ==
[~2018-03-31] VITALS: Ht 162.6 cm; Wt 99.8 kg
--- OUTSIDE RECORDS SUMMARY | 2018-03-31 08:04 | XMS REPORT | Clinical Summary ---
Author Author [facility] Address Unknown Phone Unavailable Care Team Providers Care Maintenance Associate Name Role Phone Asked, No Pcp PCP [...] Chest pain, unspecified type (Primary Dx) after 03/30/2017 Social History Tobacco Use Types Packs/Day Years [...] procedure are in the results section. after 03/30/2017 Results * Lactic acid level, SEPSIS - Now and repeat 2x every 3 hours (03/05/2018 1:15 PM) Only the most recent of 2 results within the time period is included. Lactic acid 1.4 0.5 - 2.2 mmol/L [facility] DEPARTMENT OF PATHOLOGY AND GENOMIC MEDICINE Specimen Blood Performing Organization Address City/State/Zipcode Phone Number [facility] DEPARTMENT OF [address] [place] [address] PATHOLOGY AND GENOMIC MEDICINE * CT Chest [...] No fluid collections. IMPRESSION: No acute abnormality. [id number] Procedure Note Hm Interface, Radiology Results Incoming [...] No fluid collections. IMPRESSION: No acute abnormality. [id number] Performing Organization Address City/State/Zipcode Phone Number [facility] [address] [place] [address] * Estimated GFR (03/05/2018 10:15 AM) Estimated GFR 87 mL/min/1.73 m2 [facility] DEPARTMENT OF Comment: PATHOLOGY AND [employer]ory[employer]its[employer] GENOMIC MEDICINE rpretation G1 >=90 Normal or high G2 60-89Mildly decreased [id number] Mildly to moderately decreased [id number] Moderately to severely decreased G4 15-29Severely decreased G5 <15Kidney failure The eGFR was calculated using the Chronic Kidney Disease Epidemiology Collaboration (CKD-EPI) equation. Interpretation is based on recommendations of the National Kidney Foundation-Kidney Disease Outcomes Quality Initiative (NKF-KDOQI) published in 2014. Specimen Plasma specimen Performing Organization Address City/[facility]/[place] [address] PATHOLOGY AND [facility] * Troponin (03/05/2018 10:15 AM) Troponin <0.30 0.00 - 0.30 ng/mL [facility] DEPARTMENT OF Comment: PATHOLOGY AND 0.30 - 1.49 GENOMIC MEDICINE ng/mlMay indicate increased risk of acute coronary syndrome. >=1.5 ng/ml Consistent with acute myocardial infarction. The diagnostic value of a single normal or non-diagnostic result is questionable.Serial samples at 2-6 hour intervals are required to rule out acute myocardial injury. Specimen Plasma specimen Performing Organization Address [facility] [place] [address] PATHOLOGY AND [facility] MEDICINE * Partial thromboplastin time, activated (03/05/2018 10:15 AM) PTT 29.9 23.0 - 36.0 sec [facility] DEPARTMENT OF Comment: PATHOLOGY AND PTT therapeutic range for GENOMIC MEDICINE unfractionated heparin is 61.0-112.0 seconds which corresponds to Anti-Xa 0.3-0.7 U/ml. Specimen Blood Performing Organization Address [facility]/[place] [address] PATHOLOGY AND [facility] MEDICINE * Prothrombin time with INR (03/05/2018 10:15 AM) Prothrombin time 14.1 12.0 - 15.0 sec [facility] DEPARTMENT OF PATHOLOGY AND GENOMIC MEDICINE INR 1.1 [facility] DEPARTMENT OF Comment: PATHOLOGY AND The International Normalized GENOMIC MEDICINE Ratio (INR) is a therapeutic monitoring tool for patients who are stable on oral anticoagulant therapy. An INR of 2.0-3.0 is suggested for deep vein thrombosis/pulmonary embolism. Specimen Blood Performing Organization Address [facility]/Zipcode Phone Number [facility] OF [address] [place] [id number] PATHOLOGY AND GENOMIC MEDICINE * D-dimer (03/05/2018 10:15 AM) D-dimer 0.92 (H) 0.00 - 0.40 ug/mL FEU [facility] DEPARTMENT OF Comment: PATHOLOGY AND Units are [...] and malignancies. Specimen Blood Performing Organization Address [facility] Corporation[facility] Phone Number [address] [address] PATHOLOGY AND [facility] MEDICINE * CBC with platelet and differential (03/05/2018 10:15 AM) WBC 6.28 4.50 - 11.00 k/uL [facility] DEPARTMENT OF PATHOLOGY AND GENOMIC MEDICINE RBC 3.96 (L) 4.20 - 5.50 m/uL [facility] DEPARTMENT OF PATHOLOGY AND GENOMIC MEDICINE HGB 11.5 (L) 12.0 - 16.0 g/dL [facility] DEPARTMENT OF PATHOLOGY AND GENOMIC MEDICINE HCT 35.4 (L) 37.0 - 47.0 % [facility] DEPARTMENT OF PATHOLOGY AND GENOMIC MEDICINE MCV 89.4 82.0 - 100.0 fL [facility] DEPARTMENT OF PATHOLOGY AND GENOMIC MEDICINE MCH 29.0 27.0 - 34.0 pg [facility] DEPARTMENT OF PATHOLOGY AND GENOMIC MEDICINE MCHC 32.5 31.0 - 37.0 g/dL [facility] DEPARTMENT OF PATHOLOGY AND GENOMIC MEDICINE RDW - SD 45.1 37.0 - 55.0 fL [facility] DEPARTMENT OF PATHOLOGY AND GENOMIC MEDICINE MPV 8.9 8.8 - 13.2 fL [facility] DEPARTMENT OF PATHOLOGY AND GENOMIC MEDICINE Platelet count 241 150 - 400 k/uL [facility] DEPARTMENT OF PATHOLOGY AND GENOMIC MEDICINE Nucleated RBC 0.00 /100 WBC [facility] DEPARTMENT OF PATHOLOGY AND GENOMIC MEDICINE Neutrophils 66.0 39.0 - 69.0 % [facility] DEPARTMENT OF PATHOLOGY AND GENOMIC MEDICINE Lymphocytes 24.8 (L) 25.0 - 45.0 % [facility] DEPARTMENT OF PATHOLOGY AND GENOMIC MEDICINE Monocytes 6.1 0.0 - 10.0 % [facility] DEPARTMENT OF PATHOLOGY AND GENOMIC MEDICINE Eosinophils 2.2 0.0 - 5.0 % [facility] DEPARTMENT OF PATHOLOGY AND GENOMIC MEDICINE Basophils 0.6 0.0 - 1.0 % [facility] DEPARTMENT OF PATHOLOGY AND GENOMIC MEDICINE Immature granulocytes 0.3Comment: "Immature 0.0 - 1.0 % [facility] DEPARTMENT OF granulocytes" (promyelocytes, PATHOLOGY AND myelocytes, metamyelocytes) GENOMIC MEDICINE Specimen Blood Performing Organization Address [facility]/[place] [address] PATHOLOGY AND GENOMIC MEDICINE * Type and screen (03/05/2018 10:15 AM) ABO grouping O [facility] DEPARTMENT OF PATHOLOGY AND GENOMIC MEDICINE Rh type POS [facility] DEPARTMENT OF PATHOLOGY AND GENOMIC MEDICINE Antibody screen (gel) NEG [facility] DEPARTMENT OF PATHOLOGY AND GENOMIC MEDICINE Specimen Blood Performing Organization Address [facility]/[place] [address] PATHOLOGY [facility] * B natriuretic peptide (03/05/2018 10:15 AM) BNP 11 0 - 100 pg/mL [facility] DEPARTMENT OF PATHOLOGY AND GENOMIC MEDICINE Specimen Blood Performing Organization Address [facility] [place] [address] PATHOLOGY [facility] * Lipase level (03/05/2018 10:15 AM) Lipase 20 13 - 60 U/L [facility] DEPARTMENT OF PATHOLOGY AND GENOMIC MEDICINE Specimen Plasma specimen Performing Organization Address [facility] [place] [address] PATHOLOGY [facility] * Basic metabolic panel (03/05/2018 10:15 AM) Sodium 141 135 - 148 mEq/L [facility] DEPARTMENT OF PATHOLOGY AND GENOMIC MEDICINE Potassium 4.5 3.5 - 5.0 mEq/L [facility] DEPARTMENT OF PATHOLOGY AND GENOMIC MEDICINE Chloride 103 98 - 112 mEq/L [facility] DEPARTMENT OF PATHOLOGY AND GENOMIC MEDICINE CO2 27 24 - 31 mEq/L [facility] DEPARTMENT OF PATHOLOGY AND GENOMIC MEDICINE Anion gap 11@ANIO 7 - 15 mEq/L [facility] DEPARTMENT OF PATHOLOGY AND GENOMIC MEDICINE BUN 10 6 - 20 mg/dL [facility] DEPARTMENT OF PATHOLOGY AND GENOMIC MEDICINE Creatinine 0.84 0.50 - 0.90 mg/dL [facility] DEPARTMENT OF PATHOLOGY AND GENOMIC MEDICINE Glucose 85 65 - 99 mg/dL [facility] DEPARTMENT OF PATHOLOGY AND GENOMIC MEDICINE Calcium 8.3 8.3 - 10.2 mg/dL [facility] DEPARTMENT OF PATHOLOGY AND GENOMIC MEDICINE Specimen Plasma specimen Performing Organization Address City/[facility]/Zipcode Phone Number [address] [address] PATHOLOGY AND GENOMIC MEDICINE * XR Chest 1 Vw (03/05/2018 10:02 AM) Narrative Performed At EXAM: [facility] XR CHEST 1 VW INDICATION: Chest painACS suspected COMPARISON: None. IMPRESSION: Surgical clips right upper quadrant. Minimal linear opacity lateral aspect left lower lung, discoid atelectasis versus scar/fibrosis. No consolidation, pleural effusion, pneumothorax. Heart size is normal. Minimal degenerative changes thoracic spine. [id number] Procedure Note Interface, Radiology Results Incoming - 03/05/2018 10:06 AM CDT EXAM: XR CHEST 1 VW INDICATION: Chest pain ACS suspected COMPARISON: None. IMPRESSION: Surgical clips right upper quadrant. Minimal linear opacity lateral aspect left lower lung, discoid atelectasis versus scar/fibrosis. No consolidation, pleural effusion, pneumothorax. Heart size is normal. Minimal degenerative changes thoracic spine. [id number] Performing Organization Address City/[facility] Phone Number [facility] [address] [place] [address] * XR Abdomen 1 Vw (03/05/2018 10:02 AM) Narrative Performed At Examination:[facility] Clinical history:"Abd painunspecified" Comparison: None IMPRESSION:The bowel gas pattern is nonspecific. Densities compatible with anterior abdominal wall mesh are noted. There is no evidence of acute disease within the imaged portions of both lung bases. The imaged bones appear to be within normal limits. Surgical clips are seen in the right upper quadrant. [id number] Procedure Note Hm Interface, Radiology Results Incoming [...] are seen in the right upper quadrant. [id number] Performing Organization Address [facility] Corporation[facility]oks Phone Number [facility] [address] [place] [address] * ECG 12 lead (03/05/2018 9:02 AM) Ventricular rate 94 [facility] Atrial rate 94 [facility] CO interval 194 [facility] QRSD interval 128 [facility] QT interval 388 [facility] QTC interval 485 [facility] P axis 1 50 [facility] QRS axis 1 22 [facility] T wave axis 48 [facility] EKG impression Normal sinus [facility] rhythm-Nonspecific intraventricular block-Abnormal ECG-No previous ECGs available- Performing Organization Address [facility]/[place] Phone Number [facility] [address] [place] [address] after 03/30/2017 Insurance Payer Benefit Subscriber ID Type Phone Address Plan / Group [employer] xxxxxxxx O [employer] [facility] Home: [id number] [address] [facility] [place] [id number]
--- OUTSIDE RECORDS SUMMARY | 2018-03-31 08:05 | XMS REPORT | Clinical Summary ---
Author Author RICK [facility] Address Unknown Phone Unavailable Care Team Providers Care Theatrical Performer Name Role Phone Sharpless PCP Unavailable Allergies [...] Mild dehydration 10/25/2017 Emergency Emergency Medicine after 03/30/2017 Social History Date Tobacco Use Types Packs/Day [...] CULTURE STAT 10/25/2017 8:37 AM CDT after 03/30/2017 Results * CT abdomen pelvis with IV contrast (10/25/2017 10:19 AM CDT) Narrative Performed At FINAL REPORT [facility] CT of the abdomen and pelvis, with [...] MD Report Verified Date/Time:10/25/2017 10:25:23 Reading Location: [facility] C013 Ortho Consult Reading Room Procedure [...] Report Verified Date/Time: 10/25/2017 10:25:23 Reading Location: [facility] [id number] Ortho Consult Reading Room Performing Organization Address City/State/Zipcode Phone Number [facility] * Urinalysis w/Microscopic + Reflex to Culture (10/25/2017 8:37 AM CDT) Color, UA Light Yellow [facility] Clarity, UA Clear [facility] Specific [place], UA 1.005 1.001 - 1.035 [facility] pH, UA 6.0 5.0 - 8.0 [facility] Protein, UA Negative Negative [facility] Glucose, UA Negative Negative [facility] Ketones, UA Negative Negative [facility] Bilirubin, UA Negative Negative [facility] Blood, UA Negative Negative [facility] Nitrite, UA Negative Negative [facility] Leukocytes, UA Negative Negative [facility] Urobilinogen, UA 0.2 0.2 - 1.0 mg/dL [facility] RBC, UA <1 /HPF [facility] WBC, UA 6 /HPF [facility] Bacteria, UA Rare [facility] Mucus Rare [facility] Squam Epithel, UA 3 /HPF [facility] Amorphous Crystals Rare [facility] Specimen Source [facility] Specimen Urine - Urine, Clean Catch Performing Organization Address City/State/Zipcode Phone Number [facility] [address] [place] [address] MEDICAL CENTER * CBC with platelet count + automated diff (10/25/2017 8:37 AM CDT) WBC 6.2 3.5 - 10.5 K/L [facility] RBC 4.48 3.93 - 5.22 M/L [facility] Hemoglobin 12.7 11.2 - 15.7 GM/DL [facility] Hematocrit 39.5 34.1 - 44.9 % [facility] MCV 88.2 79.4 - 94.8 fL [facility] MCH 28.3 25.6 - 32.2 pg [facility] MCHC 32.2 32.2 - 35.5 GM/DL [facility] RDW 13.9 11.7 - 14.4 % [facility] Platelets 259 150 - 450 K/CU MM [facility] MPV 9.6 9.4 - 12.3 fL [facility] nRBC 0 0 - 0 /100 WBC [facility] % Neutros 67 % [facility] % Lymphs 25 % [facility] % Monos 6 % [facility] % Eos 2 % [facility] % Baso 0 % [facility] # Neutros 4.15 1.56 - 6.13 K/L [facility] # Lymphs 1.52 1.18 - 3.74 K/L [facility] # Monos 0.38 (H) 0.24 - 0.36 K/L [facility] # Eos 0.09 0.04 - 0.36 K/L [facility] # Baso 0.02 0.01 - 0.08 K/L [facility] Immature 1 0 - 1 % [facility] Granulocytes-[facility] Specimen Blood Performing Organization Address City/State/Zipcode Phone Number [facility] [address] [place] [address] MEDICAL CENTER * Urine culture (10/25/2017 8:37 AM CDT) Result (A) [facility] Specimen Urine - Urine, Clean Catch Narrative Performed At 10-19,000 col/mL skin ronaldo [facility] Antibiotic Method Susceptibility Organism Amikacin <=2: Susceptible [...] <=20: Susceptible Escherichia coli Performing Organization Address City/[facility] Phone Number [address] * Lipase (10/25/2017 8:37 AM CDT) Lipase 40 8 - 78 U/L [facility] Specimen Blood Performing Organization Address City/[facility] Phone Number [address] * Comprehensive metabolic panel (10/25/2017 8:37 AM CDT) Protein, Total 6.3 6.0 - 8.3 gm/dL [facility] Albumin 3.9 3.5 - 5.0 g/dL [facility] Alkaline Phosphatase 80 40 - 150 U/L [facility] Total Bilirubin 0.2 0.2 - 1.2 mg/dL [facility] Sodium 142 136 - 145 meq/L [facility] Potassium 3.8 3.5 - 5.1 meq/L [facility] Chloride 111 (H) 98 - 107 meq/L [facility] CO2 23 22 - 29 meq/L [facility] BUN 14 7 - 21 mg/dL [facility] Creatinine 0.80 0.57 - 1.25 mg/dL [facility] Glucose 126 (H) 70 - 105 mg/dL [facility] Calcium 8.8 8.4 - 10.2 mg/dL [facility] AST 14 5 - 34 U/L [facility] ALT 21 6 - 55 U/L [facility] EGFR 80Comment: ESTIMATED GFR IS mL/min/1.73 sq m [facility] NOT ACCURATE CREATININE [facility] CLEARANCE IN PREDICTING GLOMERULAR FILTRATION RATE. ESTIMATED GFR IS NOT APPLICABLE FOR DIALYSIS PATIENTS. Specimen Blood Performing Organization Address City/State/Zipcode Phone Number [facility] [address] [place] [address] [facility] after 03/30/2017 Insurance Payer Benefit Subscriber ID Type Phone Address Plan / Group MEDICAID - MEDICAID MGD MEDICAID xxxxxxxxx Medicaid CARE [employer] Non-Contra cted
[2018-03-31] MEDS ORDERED: ONDANSETRON HCL 4 MG ORAL DISINTEGRATING TAB PO ONE (09:00)
[2018-03-31] MEDS ORDERED: HYDROMORPHONE 2MG/ML 2 MG/ML ML IM ONE (09:00)
[2018-03-31 09:44] LABS: CLARITY,URINE CLOUDY (CLEAR); COLOR,URINE YELLOW (YELLOW)
[2018-03-31 09:45] LABS: KETONES,URINE NEGATIVE (NEGATIVE); LEUKOCYTE ESTERASE ,URINE NEGATIVE (NEGATIVE); NITRITE,URINE NEGATIVE (NEGATIVE); PROTEIN,URINE DIPSTICK NEGATIVE (NEGATIVE); URINE UROBILINOGEN 0.2 mg/dL (0.2 - 1)
[2018-03-31 09:46] LABS: BACTERIA,URINE MANY /HPF; BILIRUBIN,URINE NEGATIVE (NEGATIVE); EPITHELIAL CELLS,URINE MANY /LPF; WBC,URINE (MAN) 0-5 /HPF (0-5)
[2018-03-31 10:36] VITALS: BP 113/73
== END 2018-03-31 10:40 | disposition home or self-care (01) ==
LOC: ER 08:02
DX: R10.33 Periumbilical pain (principal); R11.2 Nausea with vomiting, unspecified
CPT/HCPCS: 81001; 87086; 99283; J1170; Q0162

== ENCOUNTER 2018-04-09 08:18 | Emergency (ER) | payer OTHER ==
[~2018-04-09] VITALS: Ht 162.6 cm; Wt 99.8 kg
--- OUTSIDE RECORDS SUMMARY | 2018-04-09 08:21 | XMS REPORT | Clinical Summary ---
Author Author [facility] Organization [facility] Address Unknown Phone Unavailable Care Team Providers Care Advertising Operations Manager Name Role Phone Asked, No Pcp PCP [...] Chest pain, unspecified type (Primary Dx) after 04/08/2017 Social History Tobacco Use Types Packs/Day Years [...] procedure are in the results section. after 04/08/2017 Results * Lactic acid level, SEPSIS - Now and repeat 2x every 3 hours (03/05/2018 1:15 PM) Only the most recent of 2 results within the time period is included. Lactic acid 1.4 0.5 - 2.2 mmol/L [facility] DEPARTMENT OF PATHOLOGY AND GENOMIC MEDICINE Specimen Blood Performing Organization Address City/State/Zipcode Phone Number [facility] DEPARTMENT OF [address] [place] [address] PATHOLOGY AND GENOMIC MEDICINE * CT Chest [...] No fluid collections. IMPRESSION: No acute abnormality. [id number] Procedure Note Hm Interface, Radiology Results Incoming [...] No fluid collections. IMPRESSION: No acute abnormality. [id number] Performing Organization Address City/State/Zipcode Phone Number [facility] [address] [place] [address] * Estimated GFR (03/05/2018 10:15 AM) Estimated GFR 87 mL/min/1.73 m2 [facility] DEPARTMENT OF Comment: PATHOLOGY AND CatergoryUnitsInte GENOMIC MEDICINE rpretation G1 >=90 Normal or high G2 60-89Mildly decreased [id number] Mildly to moderately decreased [id number] Moderately to severely decreased G4 15-29Severely decreased G5 <15Kidney failure The eGFR was calculated using the Chronic Kidney Disease Epidemiology Collaboration (CKD-EPI) equation. Interpretation is based on recommendations of the National Kidney Foundation-Kidney Disease Outcomes Quality Initiative (NKF-KDOQI) published in 2014. Specimen Plasma specimen Performing Organization Address City/[facility]/[place] [address] PATHOLOGY AND AOL MEDICINE * Troponin (03/05/2018 10:15 AM) Troponin <0.30 0.00 - 0.30 ng/mL [facility] DEPARTMENT OF Comment: PATHOLOGY AND 0.30 - 1.49 GENOMIC MEDICINE ng/mlMay indicate increased risk of acute coronary syndrome. >=1.5 ng/ml Consistent with acute myocardial infarction. The diagnostic value of a single normal or non-diagnostic result is questionable.Serial samples at 2-6 hour intervals are required to rule out acute myocardial injury. Specimen Plasma specimen Performing Organization Address [facility] [place] [address] PATHOLOGY AND AOL MEDICINE * Partial thromboplastin time, activated (03/05/2018 10:15 AM) PTT 29.9 23.0 - 36.0 sec [facility] DEPARTMENT OF Comment: PATHOLOGY AND PTT therapeutic range for GENOMIC MEDICINE unfractionated heparin is 61.0-112.0 seconds which corresponds to Anti-Xa 0.3-0.7 U/ml. Specimen Blood Performing Organization Address [facility]/[place] [address] PATHOLOGY AND AOL MEDICINE * Prothrombin time with INR (03/05/2018 10:15 AM) Prothrombin time 14.1 12.0 - 15.0 sec [facility] DEPARTMENT OF PATHOLOGY AND GENOMIC MEDICINE INR 1.1 [facility] DEPARTMENT OF Comment: PATHOLOGY AND The International Normalized GENOMIC MEDICINE Ratio (INR) is a therapeutic monitoring tool for patients who are stable on oral anticoagulant therapy. An INR of 2.0-3.0 is suggested for deep vein thrombosis/pulmonary embolism. Specimen Blood Performing Organization Address [facility]/Zipcode Phone Number [facility] OF [address] [place] [id number] PATHOLOGY AND GENOMIC MEDICINE * D-dimer (03/05/2018 10:15 AM) D-dimer 0.92 (H) 0.00 - 0.40 ug/mL FEU [facility] DEPARTMENT OF Comment: PATHOLOGY AND Units [...] and malignancies. Specimen Blood Performing Organization Address [facility] Phone Number [address] [address] PATHOLOGY AND AOL MEDICINE * CBC with platelet and differential (03/05/2018 10:15 AM) WBC 6.28 4.50 - 11.00 k/uL [facility] DEPARTMENT OF PATHOLOGY AND GENOMIC MEDICINE RBC 3.96 (L) 4.20 - 5.50 m/uL [facility] DEPARTMENT OF PATHOLOGY AND GENOMIC MEDICINE HGB 11.5 (L) 12.0 - 16.0 g/dL [facility] DEPARTMENT OF PATHOLOGY AND GENOMIC MEDICINE HCT 35.4 (L) 37.0 - 47.0 % [facility] DEPARTMENT OF PATHOLOGY AND GENOMIC MEDICINE MCV 89.4 82.0 - 100.0 fL [facility] DEPARTMENT OF PATHOLOGY AND GENOMIC MEDICINE MCH 29.0 27.0 - 34.0 pg [facility] DEPARTMENT OF PATHOLOGY AND GENOMIC MEDICINE MCHC 32.5 31.0 - 37.0 g/dL [facility] DEPARTMENT OF PATHOLOGY AND GENOMIC MEDICINE RDW - SD 45.1 37.0 - 55.0 fL [facility] DEPARTMENT OF PATHOLOGY AND GENOMIC MEDICINE MPV 8.9 8.8 - 13.2 fL [facility] DEPARTMENT OF PATHOLOGY AND GENOMIC MEDICINE Platelet count 241 150 - 400 k/uL [facility] DEPARTMENT OF PATHOLOGY AND GENOMIC MEDICINE Nucleated RBC 0.00 /100 WBC [facility] DEPARTMENT OF PATHOLOGY AND GENOMIC MEDICINE Neutrophils 66.0 39.0 - 69.0 % [facility] DEPARTMENT OF PATHOLOGY AND GENOMIC MEDICINE Lymphocytes 24.8 (L) 25.0 - 45.0 % [facility] DEPARTMENT OF PATHOLOGY AND GENOMIC MEDICINE Monocytes 6.1 0.0 - 10.0 % [facility] DEPARTMENT OF PATHOLOGY AND GENOMIC MEDICINE Eosinophils 2.2 0.0 - 5.0 % [facility] DEPARTMENT OF PATHOLOGY AND GENOMIC MEDICINE Basophils 0.6 0.0 - 1.0 % [facility] DEPARTMENT OF PATHOLOGY AND GENOMIC MEDICINE Immature granulocytes 0.3Comment: "Immature 0.0 - 1.0 % [facility] DEPARTMENT OF granulocytes" (promyelocytes, PATHOLOGY AND myelocytes, metamyelocytes) GENOMIC MEDICINE Specimen Blood Performing Organization Address [facility] [place] [address] PATHOLOGY AND GENOMIC MEDICINE * Type and screen (03/05/2018 10:15 AM) ABO grouping O [facility] DEPARTMENT OF PATHOLOGY AND GENOMIC MEDICINE Rh type POS [facility] DEPARTMENT OF PATHOLOGY AND GENOMIC MEDICINE Antibody screen (gel) NEG [facility] DEPARTMENT OF PATHOLOGY AND GENOMIC MEDICINE Specimen Blood Performing Organization Address [facility] [place] [address] [facility] * B natriuretic peptide (03/05/2018 10:15 AM) BNP 11 0 - 100 pg/mL [facility] DEPARTMENT OF PATHOLOGY AND GENOMIC MEDICINE Specimen Blood Performing Organization Address [facility] [place] [address] [facility] * Lipase level (03/05/2018 10:15 AM) Lipase 20 13 - 60 U/L [facility] DEPARTMENT OF PATHOLOGY AND GENOMIC MEDICINE Specimen Plasma specimen Performing Organization Address [facility] [place] [address] [facility] * Basic metabolic panel (03/05/2018 10:15 AM) Sodium 141 135 - 148 mEq/L [facility] DEPARTMENT OF PATHOLOGY AND GENOMIC MEDICINE Potassium 4.5 3.5 - 5.0 mEq/L [facility] DEPARTMENT OF PATHOLOGY AND GENOMIC MEDICINE Chloride 103 98 - 112 mEq/L [facility] DEPARTMENT OF PATHOLOGY AND GENOMIC MEDICINE CO2 27 24 - 31 mEq/L [facility] DEPARTMENT OF PATHOLOGY AND GENOMIC MEDICINE Anion gap 11@ANIO 7 - 15 mEq/L [facility] DEPARTMENT OF PATHOLOGY AND GENOMIC MEDICINE BUN 10 6 - 20 mg/dL [facility] DEPARTMENT OF PATHOLOGY AND GENOMIC MEDICINE Creatinine 0.84 0.50 - 0.90 mg/dL [facility] DEPARTMENT OF PATHOLOGY AND GENOMIC MEDICINE Glucose 85 65 - 99 mg/dL [facility] DEPARTMENT OF PATHOLOGY AND GENOMIC MEDICINE Calcium 8.3 8.3 - 10.2 mg/dL [facility] DEPARTMENT OF PATHOLOGY AND GENOMIC MEDICINE Specimen Plasma specimen Performing Organization Address City/[facility]/Zipcode Phone Number [address] [address] PATHOLOGY AND GENOMIC MEDICINE * XR Chest 1 Vw (03/05/2018 10:02 AM) Narrative Performed At EXAM: [facility] XR CHEST 1 VW INDICATION: Chest painACS suspected COMPARISON: None. IMPRESSION: Surgical clips right upper quadrant. Minimal linear opacity lateral aspect left lower lung, discoid atelectasis versus scar/fibrosis. No consolidation, pleural effusion, pneumothorax. Heart size is normal. Minimal degenerative changes thoracic spine. [id number] Procedure Note Interface, Radiology Results Incoming - 03/05/2018 10:06 AM CDT EXAM: XR CHEST 1 VW INDICATION: Chest pain ACS suspected COMPARISON: None. IMPRESSION: Surgical clips right upper quadrant. Minimal linear opacity lateral aspect left lower lung, discoid atelectasis versus scar/fibrosis. No consolidation, pleural effusion, pneumothorax. Heart size is normal. Minimal degenerative changes thoracic spine. [facility]-[id number] Performing Organization Address City/[facility] Phone Number [facility] [address] [place] [address] * XR Abdomen 1 Vw (03/05/2018 10:02 AM) Narrative Performed At Examination:[facility] Clinical history:"Abd painunspecified" Comparison: None IMPRESSION:The bowel gas pattern is nonspecific. Densities compatible with anterior abdominal wall mesh are noted. There is no evidence of acute disease within the imaged portions of both lung bases. The imaged bones appear to be within normal limits. Surgical clips are seen in the right upper quadrant. [id number] Procedure Note Hm Interface, Radiology Results Incoming [...] are seen in the right upper quadrant. [id number] Performing Organization Address [facility] Phone Number [facility] [address] [place] [address] * ECG 12 lead (03/05/2018 9:02 AM) Ventricular rate 94 [facility] Atrial rate 94 [facility] IL interval 194 [facility] QRSD interval 128 [facility] QT interval 388 [facility] QTC interval 485 [facility] P axis 1 50 [facility] QRS axis 1 22 [facility] T wave axis 48 [facility] EKG impression Normal sinus [facility] rhythm-Nonspecific intraventricular block-Abnormal ECG-No previous ECGs available- Performing Organization Address [facility] Phone Number [employer] [facility] [address] [place] [address] after 04/08/2017 Insurance Payer Benefit Subscriber ID Type Phone Address Plan / Group [employer] xxxxxxxx O [employer] [facility] Home: [id number] [address] [facility] [place] [phone]
--- OUTSIDE RECORDS SUMMARY | 2018-04-09 08:21 | XMS REPORT | Clinical Summary ---
Author Author RICK [facility] Address Unknown Phone Unavailable Care Team Providers Care Bilingual Administrative Assistant Name Role Phone Sharpless PCP Unavailable Allergies [...] Mild dehydration 10/25/2017 Emergency Emergency Medicine after 04/08/2017 Social History Date Tobacco Use Types Packs/Day [...] CULTURE STAT 10/25/2017 8:37 AM CDT after 04/08/2017 Results * CT abdomen pelvis with IV contrast (10/25/2017 10:19 AM CDT) Narrative Performed At FINAL REPORT [facility] CT of the abdomen and pelvis, with [...] MD Report Verified Date/Time:10/25/2017 10:25:23 Reading Location: [facility] C013 Ortho Consult Reading Room Procedure Note [...] Report Verified Date/Time: 10/25/2017 10:25:23 Reading Location: [facility] [id number] Ortho Consult Reading Room Performing Organization Address City/State/Zipcode Phone Number [facility] * Urinalysis w/Microscopic + Reflex to Culture (10/25/2017 8:37 AM CDT) Color, UA Light Yellow [facility] Clarity, UA Clear [facility] Specific [place], UA 1.005 1.001 - 1.035 [facility] pH, UA 6.0 5.0 - 8.0 [facility] Protein, UA Negative Negative [facility] Glucose, UA Negative Negative [facility] Ketones, UA Negative Negative [facility] Bilirubin, UA Negative Negative [facility] Blood, UA Negative Negative [facility] Nitrite, UA Negative Negative [facility] Leukocytes, UA Negative Negative [facility] Urobilinogen, UA 0.2 0.2 - 1.0 mg/dL [facility] RBC, UA <1 /HPF [facility] WBC, UA 6 /HPF [facility] Bacteria, UA Rare [facility] Mucus Rare [facility] Squam Epithel, UA 3 /HPF [facility] Amorphous Crystals Rare [facility] Specimen Source [facility] Specimen Urine - Urine, Clean Catch Performing Organization Address City/State/Zipcode Phone Number [facility] [address] [place] [address] MEDICAL CENTER * CBC with platelet count + automated diff (10/25/2017 8:37 AM CDT) WBC 6.2 3.5 - 10.5 K/L [facility] RBC 4.48 3.93 - 5.22 M/L [facility] Hemoglobin 12.7 11.2 - 15.7 GM/DL [facility] Hematocrit 39.5 34.1 - 44.9 % [facility] MCV 88.2 79.4 - 94.8 fL [facility] MCH 28.3 25.6 - 32.2 pg [facility] MCHC 32.2 32.2 - 35.5 GM/DL [facility] RDW 13.9 11.7 - 14.4 % [facility] Platelets 259 150 - 450 K/CU MM [facility] MPV 9.6 9.4 - 12.3 fL [facility] nRBC 0 0 - 0 /100 WBC [facility] % Neutros 67 % [facility] % Lymphs 25 % [facility] % Monos 6 % [facility] % Eos 2 % [facility] % Baso 0 % [facility] # Neutros 4.15 1.56 - 6.13 K/L [facility] # Lymphs 1.52 1.18 - 3.74 K/L [facility] # Monos 0.38 (H) 0.24 - 0.36 K/L [facility] # Eos 0.09 0.04 - 0.36 K/L [facility] # Baso 0.02 0.01 - 0.08 K/L [facility] Immature 1 0 - 1 % [facility] Granulocytes-[facility] Specimen Blood Performing Organization Address City/State/Zipcode Phone Number [facility] [address] [place] [address] MEDICAL CENTER * Urine culture (10/25/2017 8:37 AM CDT) Result ESCHERICHIA COLI (A) [facility] Specimen Urine - Urine, Clean Catch Narrative Performed At 10-19,000 col/mL skin ronaldo [facility] Antibiotic Method Susceptibility Organism Amikacin <=2: Susceptible [...] <=20: Susceptible Escherichia coli Performing Organization Address [facility] Phone Number [address] * Lipase (10/25/2017 8:37 AM CDT) Lipase 40 8 - 78 U/L [facility] Specimen Blood Performing Organization Address [facility] Phone Number [address] * Comprehensive metabolic panel (10/25/2017 8:37 AM CDT) Protein, Total 6.3 6.0 - 8.3 gm/dL [facility] Albumin 3.9 3.5 - 5.0 g/dL [facility] Alkaline Phosphatase 80 40 - 150 U/L [facility] Total Bilirubin 0.2 0.2 - 1.2 mg/dL [facility] Sodium 142 136 - 145 meq/L [facility] Potassium 3.8 3.5 - 5.1 meq/L [facility] Chloride 111 (H) 98 - 107 meq/L [facility] CO2 23 22 - 29 meq/L [facility] BUN 14 7 - 21 mg/dL [facility] Creatinine 0.80 0.57 - 1.25 mg/dL [facility] Glucose 126 (H) 70 - 105 mg/dL [facility] Calcium 8.8 8.4 - 10.2 mg/dL [facility] AST 14 5 - 34 U/L [facility] ALT 21 6 - 55 U/L [facility] EGFR 80Comment: ESTIMATED GFR IS mL/min/1.73 sq m [facility] NOT ACCURATE CREATININE [facility] CLEARANCE IN PREDICTING GLOMERULAR FILTRATION RATE. ESTIMATED GFR IS NOT APPLICABLE FOR DIALYSIS PATIENTS. Specimen Blood Performing Organization Address City/State/Zipcode Phone Number [facility] [address] [place] [address] [facility] after 04/08/2017 Insurance Payer Benefit Subscriber ID Type Phone Address Plan / Group MEDICAID - MEDICAID MGD MEDICAID xxxxxxxxx Medicaid CARE [employer] Non-Contra cted
== END 2018-04-09 09:41 | disposition left against medical advice (07) ==
LOC: ER 08:18
DX: R10.33 Periumbilical pain (principal)

== ENCOUNTER 2018-04-28 08:05 | Emergency (ER) | payer OTHER ==
[~2018-04-28] VITALS: Ht 162.6 cm; Wt 99.8 kg
--- OUTSIDE RECORDS SUMMARY | 2018-04-28 08:07 | XMS REPORT | Clinical Summary ---
Author Author RICK [facility] Address Unknown Phone Unavailable Care Team Providers Care Tire Building Supervisor Name Role Phone Sharpless PCP Unavailable Allergies [...] Mild dehydration 10/25/2017 Emergency Emergency Medicine after 04/27/2017 Social History Date Tobacco Use Types Packs/Day [...] CULTURE STAT 10/25/2017 8:37 AM CDT after 04/27/2017 Results * CT abdomen pelvis with IV contrast (10/25/2017 10:19 AM CDT) Narrative Performed At FINAL REPORT [facility] CT of the abdomen and pelvis, [...] MD Report Verified Date/Time:10/25/2017 10:25:23 Reading Location: [facility] C013 Ortho Consult Reading Room Procedure Note [...] Report Verified Date/Time: 10/25/2017 10:25:23 Reading Location: [facility] [id number] Ortho Consult Reading Room Performing Organization Address City/State/Zipcode Phone Number [facility] * Urinalysis w/Microscopic + Reflex to Culture (10/25/2017 8:37 AM CDT) Color, UA Light Yellow [facility] Clarity, UA Clear [facility] Specific [place], UA 1.005 1.001 - 1.035 [facility] pH, UA 6.0 5.0 - 8.0 [facility] Protein, UA Negative Negative [facility] Glucose, UA Negative Negative [facility] Ketones, UA Negative Negative [facility] Bilirubin, UA Negative Negative [facility] Blood, UA Negative Negative [facility] Nitrite, UA Negative Negative [facility] Leukocytes, UA Negative Negative [facility] Urobilinogen, UA 0.2 0.2 - 1.0 mg/dL [facility] RBC, UA <1 /HPF [facility] WBC, UA 6 /HPF [facility] Bacteria, UA Rare [facility] Mucus Rare [facility] Squam Epithel, UA 3 /HPF [facility] Amorphous Crystals Rare [facility] Specimen Source [facility] Specimen Urine - Urine, Clean Catch Performing Organization Address City/State/Zipcode Phone Number [facility] [address] [place] [address] MEDICAL CENTER * CBC with platelet count + automated diff (10/25/2017 8:37 AM CDT) WBC 6.2 3.5 - 10.5 K/L [facility] RBC 4.48 3.93 - 5.22 M/L [facility] Hemoglobin 12.7 11.2 - 15.7 GM/DL [facility] Hematocrit 39.5 34.1 - 44.9 % [facility] MCV 88.2 79.4 - 94.8 fL [facility] MCH 28.3 25.6 - 32.2 pg [facility] MCHC 32.2 32.2 - 35.5 GM/DL [facility] RDW 13.9 11.7 - 14.4 % [facility] Platelets 259 150 - 450 K/CU MM [facility] MPV 9.6 9.4 - 12.3 fL [facility] nRBC 0 0 - 0 /100 WBC [facility] % Neutros 67 % [facility] % Lymphs 25 % [facility] % Monos 6 % [facility] % Eos 2 % [facility] % Baso 0 % [facility] # Neutros 4.15 1.56 - 6.13 K/L [facility] # Lymphs 1.52 1.18 - 3.74 K/L [facility] # Monos 0.38 (H) 0.24 - 0.36 K/L [facility] # Eos 0.09 0.04 - 0.36 K/L [facility] # Baso 0.02 0.01 - 0.08 K/L [facility] Immature 1 0 - 1 % [facility] Granulocytes-[facility] Specimen Blood Performing Organization Address City/State/Zipcode Phone Number [facility] [address] [place] [address] MEDICAL CENTER * Urine culture (10/25/2017 8:37 AM CDT) Result ESCHERICHIA COLI (A) [facility] Specimen Urine - Urine, Clean Catch Narrative Performed At 10-19,000 col/mL skin ronaldo [facility] Antibiotic Method Susceptibility Organism Amikacin <=2: [...] <=20: Susceptible Escherichia coli Performing Organization Address [facility] Phone Number [address] * Lipase (10/25/2017 8:37 AM CDT) Lipase 40 8 - 78 U/L [facility] Specimen Blood Performing Organization Address [facility] Phone Number [address] * Comprehensive metabolic panel (10/25/2017 8:37 AM CDT) Protein, Total 6.3 6.0 - 8.3 gm/dL [facility] Albumin 3.9 3.5 - 5.0 g/dL [facility] Alkaline Phosphatase 80 40 - 150 U/L [facility] Total Bilirubin 0.2 0.2 - 1.2 mg/dL [facility] Sodium 142 136 - 145 meq/L [facility] Potassium 3.8 3.5 - 5.1 meq/L [facility] Chloride 111 (H) 98 - 107 meq/L [facility] CO2 23 22 - 29 meq/L [facility] BUN 14 7 - 21 mg/dL [facility] Creatinine 0.80 0.57 - 1.25 mg/dL [facility] Glucose 126 (H) 70 - 105 mg/dL [facility] Calcium 8.8 8.4 - 10.2 mg/dL [facility] AST 14 5 - 34 U/L [facility] ALT 21 6 - 55 U/L [facility] EGFR 80Comment: ESTIMATED GFR IS mL/min/1.73 sq m [facility] NOT ACCURATE CREATININE [facility] CLEARANCE IN PREDICTING GLOMERULAR FILTRATION RATE. ESTIMATED GFR IS NOT APPLICABLE FOR DIALYSIS PATIENTS. Specimen Blood Performing Organization Address City/State/Zipcode Phone Number [facility] [address] [place] [address] [facility] after 04/27/2017 Insurance Payer Benefit Subscriber ID Type Phone Address Plan / Group MEDICAID - MEDICAID [place]GD MEDICAID xxxxxxxxx Medicaid CARE [employer] Non-Contra cted
--- OUTSIDE RECORDS SUMMARY | 2018-04-28 08:07 | XMS REPORT | Clinical Summary ---
Author Author [facility] Address Unknown Phone Unavailable Care Team Providers Care Commercial Account Executive Name Role Phone Asked, No Pcp PCP Unavailable Allergies Comments Active Allergy Reactions Severity Noted Date shaking Codeine Other (See 03/05/2018 Comments) shaking Tramadol Other (See 03/05/2018 Comments) Medications End Date Status Medication Sig Dispensed Refills Start Date Active keTOROlac (TORadol) 10 mg Take 10 mg by 0 tablet mouth every 6 (six) hours as needed for moderate pain. Active Problems Not on file Encounters Care Team Description Date Type Specialty Ofelia Gonzalez MD Chest pain, unspecified type (Primary Dx) 03/05/2018 Emergency Emergency Medicine after 04/27/2017 Social History Date Tobacco Use Types Packs/Day Years Used Quit: 2004 Former Smoker Cigarettes 10 Smokeless Tobacco: Never Used Alcohol Use Drinks/Week oz/Week Comments Yes "two or three beers in a month; it's rare" Sex Assigned at Date Recorded Not on file Industry Job Start Date Occupation Not on file Not on file Not on file Travel End Travel History Travel Start No recent travel history available. Last Filed Vital Signs Time Taken Vital Sign Reading 03/05/2018 1:30 PM CDT Blood Pressure 124/77 03/05/2018 1:30 PM CDT Pulse 78 03/05/2018 8:49 AM CDT Temperature 36.8 C (98.3 F) 03/05/2018 1:30 PM CDT Respiratory Rate 25 03/05/2018 1:30 PM CDT Oxygen Saturation 97% - Inhaled Oxygen - Concentration - Weight - 03/05/2018 11:16 AM CDT Height 162.6 cm (5' 4") - Body Mass Index - Plan of Treatment Health Maintenance Due Date Last Done Comments MMR VACCINES (1 of - 1978 Standard series) VARICELLA VACCINES (1 of 1990 2 - 2-dose adolescent series) CERVICAL CANCER SCREENING 1998 INFLUENZA VACCINE 12/30/2017 HEPATITIS B VACCINES Aged Out No longer eligible based on patient's age to complete this topic IPV VACCINES Aged Out No longer eligible based on patient's age to complete this topic MENINGOCOCCAL VACCINE Aged Out No longer eligible based on patient's age to complete this topic Procedures Comments Procedure Name Priority Date/Time Associated Diagnosis LACTIC ACID LEVEL, SEPSIS Timed 03/05/2018 - NOW AND REPEAT 2X EVERY 1:[address] PM [address] CHEST W CONTRAST STAT 03/05/2018 ABDOMEN W CONTRAST PELVIS 1:02 PM CDT W CONTRAST PARTIAL THROMBOPLASTIN STAT 03/05/2018 TIME (PTT) 10:15 AM CDT PROTHROMBIN TIME WITH INR STAT 03/05/2018 10:15 AM CDT TROPONIN STAT 03/05/2018 10:15 AM CDT ESTIMATED GFR STAT 03/05/2018 10:15 AM CDT TYPE AND SCREEN Routine 03/05/2018 10:15 AM CDT LACTIC ACID LEVEL, SEPSIS STAT 03/05/2018 - NOW AND REPEAT 2X EVERY 10:15 AM CDT 3 HOURS LIPASE LEVEL STAT 03/05/2018 10:15 AM CDT D-DIMER STAT 03/05/2018 10:15 AM CDT BASIC METABOLIC PANEL STAT 03/05/2018 10:15 AM CDT HC COMPLETE BLD COUNT STAT 03/05/2018 W/AUTO DIFF 10:15 AM CDT B NATRIURETIC PEPTIDE STAT 03/05/2018 10:15 AM CDT XR CHEST 1 VW STAT 03/05/2018 10:02 AM CDT XR ABDOMEN 1 VW STAT 03/05/2018 10:02 AM CDT ECG 12-LEAD STAT 03/05/2018 9:02 AM CDT after 04/27/2017 Results * Lactic acid level, SEPSIS - Now and repeat 2x every 3 hours (03/05/2018 1:15 PM CDT) Only the most recent of 2 results within the time period is included. Lactic acid 1.4 0.5 - 2.2 mmol/L [facility] OF PATHOLOGY AND GENOMIC MEDICINE Specimen Blood Performing Organization Address City/State/Zipcode Phone Number [facility] OF [address] [place] [address] PATHOLOGY AND GENOMIC MEDICINE * CT Chest W Contrast Abdomen W Contrast Pelvis W Contrast (03/05/2018 1:02 PM CDT) Narrative Performed At EXAMINATION:CT CHEST W CONTRAST ABDOMEN W CONTRAST PELVIS W CONTRAST RADIANT History: chest pain COMPARISON: None. TECHNIQUE: [...] No fluid collections. IMPRESSION: No acute abnormality. [id number] Procedure Note Hm Interface, Radiology Results Incoming [...] No fluid collections. IMPRESSION: No acute abnormality. [id number] Performing Organization Address [facility]/[place] [address] * Estimated GFR (03/05/2018 10:15 AM CDT) Estimated GFR 87 mL/min/1.73 m2 [facility] OF Comment: PATHOLOGY AND [employer] GENOMIC MEDICINE rpretation G1 >=90 Normal or high G2 60-89Mildly decreased [id number] Mildly to moderately decreased L0q89-66 Moderately to severely decreased G4 15-29Severely decreased G5 <15Kidney failure The eGFR was calculated using the Chronic Kidney Disease Epidemiology Collaboration (CKD-EPI) equation. Interpretation is based on recommendations of the National Kidney Foundation-Kidney Disease Outcomes Quality Initiative (NKF-KDOQI) published in 2014. Specimen Plasma specimen Performing Organization Address [place] [place] [address] PATHOLOGY AND Cardiio MEDICINE * Troponin (03/05/2018 10:15 AM CDT) Troponin <0.30 0.00 - 0.30 ng/mL [facility] OF Comment: PATHOLOGY AND 0.30 - 1.49 GENOMIC MEDICINE ng/mlMay indicate increased risk of acute coronary syndrome. >=1.5 ng/ml Consistent with acute myocardial infarction. The diagnostic value of a single normal or non-diagnostic result is questionable.Serial samples at 2-6 hour intervals are required to rule out acute myocardial injury. Specimen Plasma specimen Performing Organization Address [place] Phone Number [place] [phone] PATHOLOGY AND Cardiio MEDICINE * Partial thromboplastin time, activated (03/05/2018 10:15 AM CDT) PTT 29.9 23.0 - 36.0 sec [facility] OF Comment: PATHOLOGY AND PTT therapeutic range for GENOMIC MEDICINE unfractionated heparin is 61.0-112.0 seconds which corresponds to Anti-Xa 0.3-0.7 U/ml. Specimen Blood Performing Organization Address [facility] [place] [address] PATHOLOGY AND GENOMIC MEDICINE * Prothrombin time with INR (03/05/2018 10:15 AM CDT) Prothrombin time 14.1 12.0 - 15.0 sec [facility] OF PATHOLOGY AND GENOMIC MEDICINE INR 1.1 [facility] OF Comment: PATHOLOGY AND The International Normalized GENOMIC MEDICINE Ratio (INR) is a therapeutic monitoring tool for patients who are stable on oral anticoagulant therapy. An INR of 2.0-3.0 is suggested for deep vein thrombosis/pulmonary embolism. Specimen Blood Performing Organization Address [place]/[facility] [place] [address] PATHOLOGY AND Cardiio MEDICINE * D-dimer (03/05/2018 10:15 AM CDT) D-dimer 0.92 (H) 0.00 - 0.40 ug/mL FEU [facility] OF Comment: PATHOLOGY AND Units are ug/ml Fibrinogen Buzzoola Equivalent Unit. When combined with low clinical [...] and malignancies. Specimen Blood Performing Organization Address [facility] Phone Number [address] [phone] PATHOLOGY AND Cardiio MEDICINE * CBC with platelet and differential (03/05/2018 10:15 AM CDT) WBC 6.28 4.50 - 11.00 k/uL [facility] OF PATHOLOGY AND GENOMIC MEDICINE RBC 3.96 (L) 4.20 - 5.50 m/uL [facility] OF PATHOLOGY AND GENOMIC MEDICINE HGB 11.5 (L) 12.0 - 16.0 g/dL [facility] OF PATHOLOGY AND GENOMIC MEDICINE HCT 35.4 (L) 37.0 - 47.0 % [facility] OF PATHOLOGY AND GENOMIC MEDICINE MCV 89.4 82.0 - 100.0 fL [facility] OF PATHOLOGY AND GENOMIC MEDICINE MCH 29.0 27.0 - 34.0 pg [facility] OF PATHOLOGY AND GENOMIC MEDICINE MCHC 32.5 31.0 - 37.0 g/dL [facility] OF PATHOLOGY AND GENOMIC MEDICINE RDW - SD 45.1 37.0 - 55.0 fL [facility] OF PATHOLOGY AND GENOMIC MEDICINE MPV 8.9 8.8 - 13.2 fL [facility] OF PATHOLOGY AND GENOMIC MEDICINE Platelet count 241 150 - 400 k/uL [facility] OF PATHOLOGY AND GENOMIC MEDICINE Nucleated RBC 0.00 /100 WBC [facility] OF PATHOLOGY AND GENOMIC MEDICINE Neutrophils 66.0 39.0 - 69.0 % [facility] OF PATHOLOGY AND GENOMIC MEDICINE Lymphocytes 24.8 (L) 25.0 - 45.0 % [facility] OF PATHOLOGY AND GENOMIC MEDICINE Monocytes 6.1 0.0 - 10.0 % [facility] OF PATHOLOGY AND GENOMIC MEDICINE Eosinophils 2.2 0.0 - 5.0 % [facility] OF PATHOLOGY AND GENOMIC MEDICINE Basophils 0.6 0.0 - 1.0 % [facility] OF PATHOLOGY AND GENOMIC MEDICINE Immature granulocytes 0.3Comment: "Immature 0.0 - 1.0 % [facility] granulocytes" (promyelocytes, PATHOLOGY AND myelocytes, metamyelocytes) GENOMIC MEDICINE Specimen Blood Performing Organization Address [facility] [place] [address] PATHOLOGY AND GENOMIC MEDICINE * Type and screen (03/05/2018 10:15 AM CDT) ABO grouping O [facility] OF PATHOLOGY AND GENOMIC MEDICINE Rh type POS [facility] OF PATHOLOGY AND GENOMIC MEDICINE Antibody screen (gel) NEG [facility] OF PATHOLOGY AND GENOMIC MEDICINE Specimen Blood Performing Organization Address [facility] [place] [address] PATHOLOGY AND [facility] * B natriuretic peptide (03/05/2018 10:15 AM CDT) BNP 11 0 - 100 pg/mL [facility]MENT OF PATHOLOGY AND GENOMIC MEDICINE Specimen Blood Performing Organization Address City/[facility] Phone Number [address] [place] [address] PATHOLOGY AND GENOMIC MEDICINE * Lipase level (03/05/2018 10:15 AM CDT) Lipase 20 13 - 60 U/L [facility] OF PATHOLOGY AND GENOMIC MEDICINE Specimen Plasma specimen Performing Organization Address City/[facility] Phone Number [address] [address] PATHOLOGY AND GENOMIC MEDICINE * Basic metabolic panel (03/05/2018 10:15 AM CDT) Sodium 141 135 - 148 mEq/L [facility] OF PATHOLOGY AND GENOMIC MEDICINE Potassium 4.5 3.5 - 5.0 mEq/L [facility] OF PATHOLOGY AND GENOMIC MEDICINE Chloride 103 98 - 112 mEq/L [facility] OF PATHOLOGY AND GENOMIC MEDICINE CO2 27 24 - 31 mEq/L [facility] OF PATHOLOGY AND GENOMIC MEDICINE Anion gap 11@ANIO 7 - 15 mEq/L [facility] OF PATHOLOGY AND GENOMIC MEDICINE BUN 10 6 - 20 mg/dL [facility] PATHOLOGY AND GENOMIC MEDICINE Creatinine 0.84 0.50 - 0.90 mg/dL [facility] OF PATHOLOGY AND GENOMIC MEDICINE Glucose 85 65 - 99 mg/dL [facility] OF PATHOLOGY AND GENOMIC MEDICINE Calcium 8.3 8.3 - 10.2 mg/dL [facility] OF PATHOLOGY AND GENOMIC MEDICINE Specimen Plasma specimen Performing Organization Address City/[facility] Phone Number [facility] [place] [address] PATHOLOGY AND GENOMIC MEDICINE * XR Chest 1 Vw (03/05/2018 10:02 AM CDT) Narrative Performed At EXAM: RADIANT XR CHEST 1 VW INDICATION: Chest painACS suspected COMPARISON: None. IMPRESSION: Surgical clips right upper quadrant. Minimal linear opacity lateral aspect left lower lung, discoid atelectasis versus scar/fibrosis. No consolidation, pleural effusion, pneumothorax. Heart size is normal. Minimal degenerative changes thoracic spine. [facility]-[id number] Procedure Note Interface, Radiology Results Incoming - 03/05/2018 10:06 AM CDT EXAM: XR CHEST 1 VW INDICATION: Chest pain ACS suspected COMPARISON: None. IMPRESSION: Surgical clips right upper quadrant. Minimal linear opacity lateral aspect left lower lung, discoid atelectasis versus scar/fibrosis. No consolidation, pleural effusion, pneumothorax. Heart size is normal. Minimal degenerative changes thoracic spine. [facility]-[id number] Performing Organization Address [place]/[facility] Phone Number [facility] [address] [place] [address] * XR Abdomen 1 Vw (03/05/2018 10:02 AM CDT) Narrative Performed At Examination:XR ABDOMEN 1 VW RADIANT Clinical history:"Abd painunspecified" Comparison: None IMPRESSION:The bowel gas pattern is nonspecific. Densities compatible with anterior abdominal wall mesh are noted. There is no evidence of acute disease within the imaged portions of both lung bases. The imaged bones appear to be within normal limits. Surgical clips are seen in the right upper quadrant. [id number] Procedure Note Hm Interface, Radiology Results Incoming [...] are seen in the right upper quadrant. [id number] Performing Organization Address [place]/[facility] Phone Number [facility] [address] [place] [address] * ECG 12 lead (03/05/2018 9:02 AM CDT) Ventricular rate 94 [facility] Atrial rate 94 [facility] SC interval 194 [facility] QRSD interval 128 [facility] QT interval 388 [facility] QTC interval 485 [facility] P axis 1 50 [facility] QRS axis 1 22 [facility] T wave axis 48 [facility] EKG impression Normal sinus [facility] rhythm-Nonspecific intraventricular block-Abnormal ECG-No previous ECGs available- Performing Organization Address City/State/Zipcode Phone Number [facility] [address] [place] [address] after 04/27/2017 Insurance Payer Benefit Subscriber ID Type Phone Address Plan / Group [employer] xxxxxxxx HMO [employer] Advance Directives Patient has advance care planning documents on file. For more information, ivan rousseau contact: Jai Zee [address] [place] [address]
--- OUTSIDE RECORDS SUMMARY | 2018-04-28 08:08 | XMS REPORT ---
Author Author Admin, [place] Organization [facility] Address [address] [place] [address] Phone Allergies, Adverse Reactions, Alerts Allergy Name Reaction [...] Generic Name NDC Status Provider Patient Instruction KLONOPIN 2 MG ORAL TABLET Take one tablet By Mouth daily as needed for anxiety CLONAZEPAM 59581241475 Active Bogdan Hand MD Active TRAZODONE HCL 150 MG ORAL TABLET Take one tablet By Mouth at bedtime TRAZODONE HCL 69139371187 Active Bogdan Hand MD Active AMITRIPTYLINE HCL 150 MG ORAL TABLET Take two tablets By Mouth at bedtime AMITRIPTYLINE HCL 46566690246 Active Bogdan Hand MD Active PRAZOSIN HCL 5 MG ORAL CAPSULE Take 3 capsules By Mouth at bedtime PRAZOSIN HCL 13410391888 Active Bogdan Hand MD Active LEXAPRO 20 MG ORAL TABLET Take one tablet By Mouth daily ESCITALOPRAM OXALATE 17434340185 Active Bogdan Hand MD Active VALIUM 10 MG ORAL TABLET Take one tablet By Mouth at bedtime for breakthrough anxiety DIAZEPAM 10284753432 Active Bogdan Hand MD Active DIAZEPAM 5 MG TABS TAKE 1 TABLET BY MOUTH AT BEDTIME NEEDED FOR BREAKTHROUGH ANXIETY DIAZEPAM 95934579648 Active Bogdan Hand MD Active WELLBUTRIN XL 150 MG ORAL TABLET EXTENDED RELEASE 24 HOUR Take one tablet By Mouth daily WELLBUTRIN XL 150 MG ORAL TABLET EXTENDED RELEASE 24 HOUR BUPROPION HCL Inactive LUNESTA 3 MG ORAL TABLET Take one tablet By Mouth at bedtime LUNESTA 3 MG ORAL TABLET 392544 ESZOPICLONE Inactive ZYPREXA 10 MG ORAL TABLET Take one tablet By Mouth daily ZYPREXA 10 MG ORAL TABLET 522683 OLANZAPINE Inactive LUNESTA 3 MG ORAL TABLET Take one tablet at bedtime LUNESTA 3 MG ORAL TABLET 304694 ESZOPICLONE Inactive WELLBUTRIN XL 150 MG ORAL TABLET EXTENDED RELEASE 24 HOUR Take one tablet By Mouth daily BUPROPION HCL 85320962789 No Longer Active Bogdan Hand MD Active LUNESTA 3 MG ORAL TABLET Take one tablet By Mouth at bedtime ESZOPICLONE 72254271434 No Longer Active Bogdan Hand MD Active TEMAZEPAM 30 MG ORAL CAPSULE Take one capsule By Mouth By Mouth at bedtime TEMAZEPAM 72867349625 No Longer Active Bogdan Hand MD Active ZYPREXA 10 MG ORAL TABLET Take one tablet By Mouth daily OLANZAPINE 01730576682 No Longer Active Bogdan Hand MD Active LORAZEPAM 2 MG ORAL TABLET Take one tablet By Mouth TID as needed for anxiety LORAZEPAM 08412977414 No Longer Active Bogdan Hand MD Active LUNESTA 3 MG ORAL TABLET Take one tablet at bedtime ESZOPICLONE 10174698707 No Longer Active Bogdan Hand MD Active Vital Signs Date Name Value Unit Range Description blood pressure, diastolic 66 mm[Hg] BP siddiqui blood pressure, systolic 98 mm[Hg] BP sys height E&M 64 [in_us] Bdy height pulse rate E&M 88 /min Heart rate weight E&M 230 [lb_av] Weight Measured blood pressure, diastolic 72 mm[Hg] BP siddiqui [...] Measured Encounters Date Encounter Provider Code 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 Patient Detailed - [id number] Bogdan Hand MD CPT-94010 [facility] 10:47:07 CDT Est Patient Exp Problem - [id number] Bogdan Hand MD CPT-98552 [facility] 08:46:49 CDT Est Patient Exp Problem - [id number] Bogdan Hand MD CPT-00636 [facility] 08:33:08 CDT Est Patient Detailed - [id number] Bogdan Hand MD CPT-11404 [facility] 08:31:14 CDT Est Patient Detailed - [id number] Bogdan Hand MD CPT-86927 [facility] 13:41:13 CDT Est Patient Detailed - [id number] Bogdan Hand MD CPT-06788 [facility] 19:16:18 CDT Est Patient Detailed - 21627 Bogdan Hand MD CPT-27410 [facility] 09:08:54 CDT Est Patient Detailed - 76077 Bogdan Hand MD CPT-98688 [facility] 08:21:45 CDT Est Patient Detailed - [id number] Bogdan Hand MD CPT-51877 [facility] Procedures Code Procedure Name Date Entry Date Standard Description CPT-86531 Psychotherapy 45 (38-52*) min - 37528 (with patient and/or family member) 13:05:22 CDT CPT-40691 Diagnostic evaluation (no medical) - 53471 10:06:21 CDT CPT-51274 Diagnostic evaluation with medical - 28540 20:46:14 CDT
--- OUTSIDE RECORDS SUMMARY | 2018-04-28 08:08 | XMS REPORT | Continuity of Care Document ---
Author Author [facility] Interface Address Unknown Phone Unavailable Problems Problem Status Onset Date Classification Date Reported Comments Source DEPRESSIVE DISORDER, MAJOR, RECURRENT EPISODE, W/ PSYCHOTIC FEATURES Active 10/21/2017 Diagnosis 04/14/2018 [facility] PTSD Active 08/28/2017 Diagnosis 04/14/2018 [facility] PANIC DISORDER Active 08/28/2017 Diagnosis 04/14/2018 [facility] INSOMNIA DISORDER, PERSISTENT Active 08/28/2017 Diagnosis 04/14/2018 [facility] Pancreatitis, acute Active Problem 03/04/[address] [facility] Medications Medication Details Route Status Patient Instructions Ordering Provider Order Date Source KLONOPIN 2 MG ORAL TABLET Take one tablet By Mouth daily as needed for anxiety Active Take one tablet By Mouth daily as needed for anxiety 04/14/2018 [facility] TRAZODONE HCL Take one tablet By Mouth at bedtime Active Take one tablet By Mouth at bedtime 04/14/2018 [facility] Levofloxacin (Levaquin) 500 Mg Tablet Daily for 10 Active Bigg 03/04/[address] [facility] Cephalexin Monohydrate (Keflex) 500 Mg Capsule Every 6 Hours Active Bigg 01/21/[address] [facility] Prednisone 20 Mg Tab Daily Active Bigg 01/21/[address] [facility] WELLBUTRIN XL 150 MG ORAL TABLET EXTENDED RELEASE 24 HOUR Take one tablet By Mouth daily Active Take one tablet By Mouth daily 01/15/2018 [facility] WELLBUTRIN XL 150 MG ORAL TABLET EXTENDED RELEASE 24 HOUR Take one tablet By Mouth daily No Longer Active Take one tablet By Mouth daily 01/15/2018 [facility] AMITRIPTYLINE HCL Take two tablets By Mouth at bedtime Active Take two tablets By Mouth at bedtime 12/09/2017 [facility] LUNESTA 3 MG ORAL TABLET Take one tablet By Mouth at bedtime Active Take one tablet By Mouth at bedtime 11/18/2017 [facility] TEMAZEPAM Take one capsule By Mouth By Mouth at bedtime Active Take one capsule By Mouth By Mouth at bedtime 11/18/2017 [facility] LUNESTA 3 MG ORAL TABLET Take one tablet By Mouth at bedtime No Longer Active Take one tablet By Mouth at bedtime 11/18/2017 [facility] ZYPREXA 10 MG ORAL TABLET Take one tablet By Mouth daily Active Take one tablet By Mouth daily 10/21/2017 [facility] ZYPREXA 10 MG ORAL TABLET Take one tablet By Mouth daily No Longer Active Take one tablet By Mouth daily 10/21/2017 [facility] PRAZOSIN HCL Take 3 capsules By Mouth at bedtime Active Take 3 capsules By Mouth at bedtime 09/22/2017 [facility] VALIUM 10 MG ORAL TABLET Take one tablet By Mouth at bedtime for breakthrough anxiety Active Take one tablet By Mouth at bedtime for breakthrough anxiety 08/28/2017 [facility] LUNESTA 3 MG ORAL TABLET Take one tablet at bedtime Active Take one tablet at bedtime 08/28/2017 [facility] LEXAPRO 20 MG ORAL TABLET Take one tablet By Mouth daily Active Take one tablet By Mouth daily 08/28/2017 [facility] LORAZEPAM Take one tablet By Mouth TID as needed for anxiety Active Take one tablet By Mouth TID as needed for anxiety 08/28/2017 [facility] LUNESTA 3 MG ORAL TABLET Take one tablet at bedtime No Longer Active Take one tablet at bedtime 08/28/2017 [facility] Acetaminophen With Codeine (Tylenol With Codeine #3 Tablet) 1 Each Tablet, 300 Mg Oral Every 8 Hours as needed for Pain Active [facility] 08/24/[address] [facility] Cyclobenzaprine Hcl 10 Mg Tablet, 5 Mg Oral Three Times A Day Active [facility] 08/24/[address] [facility] Ondansetron (Zofran Odt) 4 Mg Tab.rapdis, 4 Mg Oral Q4- 6H Prn Active [facility] 08/24/[address] [facility] Polyethylene Glycol 3350 (Miralax) 17 Gm Powd.pack, 17 Gm Oral Twice A Day Active [facility] 08/24/[address] [facility] Senna Fruit/Conc/Doc Sod/Bisa 1 Ea Tab, 2 Ea Oral Bedtime Active [facility] 08/24/[address] [facility] DIAZEPAM TAKE 1 TABLET BY MOUTH AT BEDTIME NEEDED FOR BREAKTHROUGH ANXIETY Active TAKE 1 TABLET BY MOUTH AT BEDTIME NEEDED FOR BREAKTHROUGH ANXIETY [facility] Allergies, Adverse Reactions, Alerts Substance Category Reaction Severity Reaction type Status Date Reported Comments Source Codeine Mild Allergy to Substance Active 02/09/[address] [facility] Tramadol Unknown Allergy to Substance Active 02/09/[address] [facility] Immunizations Immunization Date Given Site Status Last Updated Comments Source Results Order Name Results Value Reference Range Date Interpretation Comments Source Bacterial urine culture Bacterial urine culture Urine Culture [facility] Vital Signs Vital Sign Value Date Comments Source Diastolic (mm Hg) 66 04/14/2018 [facility] Systolic (mm Hg) 98 04/14/2018 [facility] Height 64 04/14/2018 [facility] Heart Rate 88 04/14/2018 [facility] Weight 230 04/14/2018 [facility] Diastolic (mm Hg) 72 03/17/2018 [facility] Systolic (mm Hg) 101 03/17/2018 [facility] Height 64 03/17/2018 [facility] Heart Rate 94 03/17/2018 [facility] Weight 229 03/17/2018 [facility] Diastolic (mm Hg) 60 02/17/2018 [facility] Systolic (mm Hg) 91 02/17/2018 [facility] Height 64 02/17/2018 [facility] Heart Rate 89 02/17/2018 [facility] Weight 223 02/17/2018 [facility] Diastolic (mm Hg) 67 02/05/2018 [facility] Systolic (mm Hg) 102 02/05/2018 [facility] Height 64 02/05/2018 [facility] Heart Rate 75 02/05/2018 [facility] Weight 222 02/05/2018 [facility] Diastolic (mm Hg) 66 01/15/2018 [facility] Systolic (mm Hg) 95 01/15/2018 [facility] Height 64 01/15/2018 [facility] Heart Rate 88 01/15/2018 [facility] Weight 221 01/15/2018 [facility] Diastolic (mm Hg) 63 12/09/2017 [facility] Systolic (mm Hg) 105 12/09/2017 [facility] Height 64 12/09/2017 [facility] Heart Rate 74 12/09/2017 [facility] Weight 218 12/09/2017 [facility] Diastolic (mm Hg) 73 11/18/2017 [facility] Systolic (mm Hg) 109 11/18/2017 [facility] Height 64 11/18/2017 [facility] Heart Rate 74 11/18/2017 [facility] Weight 224 11/18/2017 [facility] Diastolic (mm Hg) 81 10/21/2017 [facility] Systolic (mm Hg) 114 10/21/2017 [facility] Height 64 10/21/2017 [facility] Heart Rate 101 10/21/2017 [facility] Weight 215 10/21/2017 [facility] Diastolic (mm Hg) 80 09/22/2017 [facility] Systolic (mm Hg) 113 09/22/2017 [facility] Height 64 09/22/2017 [facility] Heart Rate 90 09/22/2017 [facility] Weight 213.13 09/22/2017 [facility] Diastolic (mm Hg) 85 08/28/2017 [facility] Systolic (mm Hg) 133 08/28/2017 [facility] Height 64 08/28/2017 [facility] Heart Rate 71 08/28/2017 [facility] Weight 222.25 08/28/2017 [facility] Encoun[facility] Location Location Details Encounter Type Encounter Number Reason For Visit Attending Provider ADM Date DC Date Status Source Departed Emergency Room [id number] MARTA BARROW MD 07/03/2017 07/03/[address] [facility] Departed Emergency Room [id number] MADELINE MCKEON MD 07/30/2017 07/30/[address] [facility] Departed Emergency Room [id number] MADELINE GILBERT MD 08/05/2017 08/05/[address] [facility] Discharged Inpatient [id number] NEELIMA TILLEY MD 08/20/2017 08/24/[address] [facility] Departed Emergency Room [id number] COLLETTE MARTINEZ MD 09/09/2017 09/09/2017 [facility] Est Patient Detailed - [id number] Bogdan Hand MD 09/25/2017 [facility] Est Patient Detailed - [id number] Bogdan Hand MD 10/21/2017 [facility] Departed Emergency Room [id number] MADELINE GILBERT MD 10/26/2017 10/26/[address] [facility] Departed Emergency Room [id number] CANDE LOUIS MD 11/17/2017 11/17/2017 [facility] Est Patient Detailed - [id number] Bogdan Hand MD 11/20/2017 [facility] Departed Emergency Room [id number] MADELINE GILBERT MD 12/04/2017 12/04/2017 [facility] Est Patient Detailed - [id number] Bogdan Hand MD 12/13/2017 [facility] Est Patient Detailed - [id number] Bogdan Hand MD 01/15/2018 [facility] Departed Emergency Room [id number] SEEMA TINAJERO MD 01/21/2018 01/21/2018 [facility] Est Patient Detailed - [id number] Bogdan Hand MD 02/07/2018 [facility] Departed Emergency Room [id number] COLLETTE MARTINEZ MD 02/09/2018 02/09/2018 [facility] Patient Exp Problem - 76055 [id number] Bogdan Hand MD 02/17/2018 [facility] Registered Emergency Room [id number] SEEMA TINAJERO MD 03/04/2018 [facility] Patient Exp Problem - 66550 [id number] Bogdan Hand MD 03/17/2018 [facility] Patient Detailed - [id number] Bogdan Hand MD 04/14/2018 [facility] Procedures Procedure Code Date Perfomer Comments Source Computed tomography of abdomen and pelvis with contrast [id number] 03/04/2018 [facility] Computed tomography of chest with contrast [id number] 03/04/2018 [facility] Psychotherapy 45 (38-52*) min - 94584 (with patient and/or family member) 99746 02/26/2018 Dom [facility]ILLED[facility] 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 Computed tomography of abdomen and pelvis with contrast [id number] 10/26/2017 [facility] Diagnostic evaluation with medical - [id number] 15404 08/31/2017 [facility] Computed tomography of abdomen with contrast [id number] 08/23/2017 [facility] Computed tomography of abdomen and pelvis with contrast [id number] 08/20/2017 [facility] CT of abdomen and pelvis without contrast [id number] 08/05/2017 [facility] CT of abdomen and pelvis without contrast [id number] 07/30/2017 [facility] [id number] [facility]
--- OUTSIDE RECORDS SUMMARY | 2018-04-28 08:08 | XMS REPORT ---
Author Author Admin, [place] Organization [facility] Address [address] [place] [address] Phone Allergies, Adverse Reactions, Alerts Allergy Name [...] Mouth daily as needed for anxiety CLONAZEPAM 11798886391 Active Bogdan Hand MD Active TRAZODONE HCL 150 MG ORAL TABLET Take one tablet By Mouth at bedtime TRAZODONE HCL 62562688897 Active Bogdan Hand MD Active AMITRIPTYLINE HCL 150 MG ORAL TABLET Take two tablets By Mouth at bedtime AMITRIPTYLINE HCL 20858440497 Active Bogdan Hand MD Active PRAZOSIN HCL 5 MG ORAL CAPSULE Take 3 capsules By Mouth at bedtime PRAZOSIN HCL 88470402826 Active Bogdan Hand MD Active LEXAPRO 20 MG ORAL TABLET Take one tablet By Mouth daily ESCITALOPRAM OXALATE 22597616665 Active Bogdan Hand MD Active VALIUM 10 MG ORAL TABLET Take one tablet By Mouth at bedtime for breakthrough anxiety DIAZEPAM 25825372523 Active Bogdan Hand MD Active DIAZEPAM 5 MG TABS TAKE 1 TABLET BY MOUTH AT BEDTIME NEEDED FOR BREAKTHROUGH ANXIETY DIAZEPAM 09293325673 Active Bogdan Hand MD Active WELLBUTRIN XL 150 MG ORAL TABLET EXTENDED RELEASE 24 HOUR Take one tablet By Mouth daily WELLBUTRIN XL 150 MG ORAL TABLET EXTENDED RELEASE 24 HOUR BUPROPION HCL Inactive LUNESTA 3 MG ORAL TABLET Take one tablet By Mouth at bedtime LUNESTA 3 MG ORAL TABLET 795585 ESZOPICLONE Inactive ZYPREXA 10 MG ORAL TABLET Take one tablet By Mouth daily ZYPREXA 10 MG ORAL TABLET 545984 OLANZAPINE Inactive LUNESTA 3 MG ORAL TABLET Take one tablet at bedtime LUNESTA 3 MG ORAL TABLET 937240 ESZOPICLONE Inactive WELLBUTRIN XL 150 MG ORAL TABLET EXTENDED RELEASE 24 HOUR Take one tablet By Mouth daily BUPROPION HCL 54021090971 No Longer Active Bogdan Hand MD Active LUNESTA 3 MG ORAL TABLET Take one tablet By Mouth at bedtime ESZOPICLONE 12808845104 No Longer Active Bogdan Hand MD Active TEMAZEPAM 30 MG ORAL CAPSULE Take one capsule By Mouth By Mouth at bedtime TEMAZEPAM 12873159186 No Longer Active Bogdan Hand MD Active ZYPREXA 10 MG ORAL TABLET Take one tablet By Mouth daily OLANZAPINE 27647512516 No Longer Active Bogdan Hand MD Active LORAZEPAM 2 MG ORAL TABLET Take one tablet By Mouth TID as needed for anxiety LORAZEPAM 21675304071 No Longer Active Bogdan Hand MD Active LUNESTA 3 MG ORAL TABLET Take one tablet at bedtime ESZOPICLONE 96507142292 No Longer Active Bogdan Hand MD Active Vital Signs Date Name Value Unit Range Description blood pressure, diastolic - 8462-4 66 mm[Hg] BP siddiqui blood pressure, systolic - 8480-6 98 mm[Hg] BP sys height E&M - 8302-2 64 [in_us] Bdy height pulse rate E&M - 8867-4 88 /min Heart rate weight E&M - 3141-9 230 [lb_av] Weight Measured blood pressure, diastolic - 8462-4 72 mm[Hg] BP siddiqui blood pressure, systolic - 8480-6 101 mm[Hg] BP sys height E&M - 8302-2 64 [in_us] Bdy height pulse rate E&M - 8867-4 94 /min Heart rate weight E&M - 3141-9 229 [lb_av] Weight Measured blood pressure, diastolic - 8462-4 60 mm[Hg] BP siddiqui blood pressure, systolic - 8480-6 91 mm[Hg] BP sys height E&M - 8302-2 64 [in_us] Bdy height pulse rate E&M - 8867-4 89 /min Heart rate weight E&M - 3141-9 223 [lb_av] Weight Measured blood pressure, diastolic - 8462-4 67 mm[Hg] BP siddiqui blood pressure, systolic - 8480-6 102 mm[Hg] BP sys height E&M - 8302-2 64 [in_us] Bdy height pulse rate E&M - 8867-4 75 /min Heart rate weight E&M - 3141-9 222 [lb_av] Weight Measured blood pressure, diastolic - 8462-4 66 mm[Hg] BP siddiqui blood pressure, systolic - 8480-6 95 mm[Hg] BP sys height E&M - 8302-2 64 [in_us] Bdy height pulse rate E&M - 8867-4 88 /min Heart rate weight E&M - 3141-9 221 [lb_av] Weight Measured blood pressure, diastolic - 8462-4 63 mm[Hg] BP siddiqui blood pressure, systolic - 8480-6 105 mm[Hg] BP sys height E&M - 8302-2 64 [in_us] Bdy height pulse rate E&M - 8867-4 74 /min Heart rate weight E&M - 3141-9 218 [lb_av] Weight Measured blood pressure, diastolic - 8462-4 73 mm[Hg] BP siddiqui blood pressure, systolic - 8480-6 109 mm[Hg] BP sys height E&M - 8302-2 64 [in_us] Bdy height pulse rate E&M - 8867-4 74 /min Heart rate weight E&M - 3141-9 224 [lb_av] Weight Measured blood pressure, diastolic - 8462-4 81 mm[Hg] BP siddiqui blood pressure, systolic - 8480-6 114 mm[Hg] BP sys height E&M - 8302-2 64 [in_us] Bdy height pulse rate E&M - 8867-4 101 /min Heart rate weight E&M - 3141-9 215 [lb_av] Weight Measured blood pressure, diastolic - 8462-4 80 mm[Hg] BP siddiqui blood pressure, systolic - 8480-6 113 mm[Hg] BP sys height E&M - 8302-2 64 [in_us] Bdy height pulse rate E&M - 8867-4 90 /min Heart rate weight E&M - 3141-9 213.13 [lb_av] Weight Measured blood pressure, diastolic - 8462-4 85 mm[Hg] BP siddiqui blood pressure, systolic - 8480-6 133 mm[Hg] BP sys height E&M - 8302-2 64 [in_us] Bdy height pulse rate E&M - 8867-4 71 /min Heart rate weight E&M - 3141-9 222.25 [lb_av] Weight Measured Encounters Date Encounter Provider Code 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 Patient Detailed - [id number] Bogdan Hand MD CPT-04293 [facility] 10:47:07 CDT Est Patient Exp Problem - 61892 Bogdan Hand MD CPT-02912 [facility] 08:46:49 CDT Est Patient Exp Problem - 73880 Bogdan Hand MD CPT-86616 [facility] 08:33:08 CDT Est Patient Detailed - [id number] Bogdan Hand MD CPT-99486 [facility] 08:31:14 CDT Est Patient Detailed - [id number] Bogdan Hand MD CPT-78808 [facility] 13:41:13 CDT Est Patient Detailed - 63960 Bogdan Hand MD CPT-62536 [facility] 19:16:18 CDT Est Patient Detailed - [id number] Bogdan Hand MD CPT-49230 [facility] 09:08:54 CDT Est Patient Detailed - [id number] Bogdan Hand MD CPT-63222 [facility] 08:21:45 CDT Est Patient Detailed - [id number] Bogdan Hand MD CPT-65648 [facility] Procedures Code Procedure Name Date Entry Date Standard Description CPT-09519 Psychotherapy 45 (38-52*) min - 30471 (with patient and/or family member) 13:05:22 CDT CPT-77564 Diagnostic evaluation (no medical) - 28187 10:06:21 CDT CPT-66546 Diagnostic evaluation with medical - 63176 20:46:14 CDT
[2018-04-28] MEDS ORDERED: ONDANSETRON HCL 4 MG ORAL DISINTEGRATING TAB PO ONE (08:45)
[2018-04-28] MEDS ORDERED: KETOROLAC TROMETHAMINE 60 MG/2 ML VIAL IM ONE (08:45)
--- OUTSIDE RECORDS SUMMARY | 2018-04-28 08:54 | XMS REPORT | Clinical Summary ---
Author Author [facility] [facility] [employer] Address Unknown Phone Unavailable Care Team Providers Care Centrifugal Screen Tender Name Role Phone Asked, No Pcp PCP [...] Lactic acid 1.4 0.5 - 2.2 mmol/L [facility] DEPARTMENT OF PATHOLOGY AND GENOMIC MEDICINE Specimen Blood Performing Organization Address City/State/Zipcode Phone Number [facility] DEPARTMENT OF [address] [place] [address] PATHOLOGY AND GENOMIC MEDICINE * CT Chest [...] No fluid collections. IMPRESSION: No acute abnormality. [id number] Procedure Note Hm Interface, Radiology Results Incoming [...] No fluid collections. IMPRESSION: No acute abnormality. [id number] Performing Organization Address [facility]/[place] [address] * Estimated GFR (03/05/2018 10:15 AM CDT) Estimated GFR 87 mL/min/1.73 m2 [facility] DEPARTMENT OF Comment: PATHOLOGY AND CatergoryUnitsInte GENOMIC MEDICINE rpretation G1 >=90 Normal or high G2 60-89Mildly decreased [id number] Mildly to moderately decreased [id number] Moderately to severely decreased G4 15-29Severely decreased G5 <15Kidney failure The eGFR was calculated using the Chronic Kidney Disease Epidemiology Collaboration (CKD-EPI) equation. Interpretation is based on recommendations of the National Kidney Foundation-Kidney Disease Outcomes Quality Initiative (NKF-KDOQI) published in 2014. Specimen Plasma specimen Performing Organization Address [facility] [place] [address] PATHOLOGY AND [email or web address] MEDICINE * Troponin (03/05/2018 10:15 AM CDT) Troponin <0.30 0.00 - 0.30 ng/mL [facility] DEPARTMENT OF Comment: PATHOLOGY AND 0.30 - 1.49 GENOMIC MEDICINE ng/mlMay indicate increased risk of acute coronary syndrome. >=1.5 ng/ml Consistent with acute myocardial infarction. The diagnostic value of a single normal or non-diagnostic result is questionable.Serial samples at 2-6 hour intervals are required to rule out acute myocardial injury. Specimen Plasma specimen Performing Organization Address [facility] Phone Number [place] [phone] PATHOLOGY AND [email or web address] MEDICINE * Partial thromboplastin time, activated (03/05/2018 10:15 AM CDT) PTT 29.9 23.0 - 36.0 sec [facility] DEPARTMENT OF Comment: PATHOLOGY AND PTT therapeutic range for GENOMIC MEDICINE unfractionated heparin is 61.0-112.0 seconds which corresponds to Anti-Xa 0.3-0.7 U/ml. Specimen Blood Performing Organization Address [facility] [place] [address] PATHOLOGY AND GENOMIC MEDICINE * Prothrombin time with INR (03/05/2018 10:15 AM CDT) Prothrombin time 14.1 12.0 - 15.0 sec [facility] DEPARTMENT OF PATHOLOGY AND GENOMIC MEDICINE INR 1.1 [facility] DEPARTMENT OF Comment: PATHOLOGY AND The International Normalized GENOMIC MEDICINE Ratio (INR) is a therapeutic monitoring tool for patients who are stable on oral anticoagulant therapy. An INR of 2.0-3.0 is suggested for deep vein thrombosis/pulmonary embolism. Specimen Blood Performing Organization Address [facility] [place] [address] PATHOLOGY AND [email or web address] MEDICINE * D-dimer (03/05/2018 10:15 AM CDT) D-dimer 0.92 (H) 0.00 - 0.40 ug/mL FEU [facility] DEPARTMENT OF Comment: PATHOLOGY AND Units are ug/ml Fibrinogen [place] Events Equivalent Unit. When combined with low clinical [...] and malignancies. Specimen Blood Performing Organization Address [facility]ode Phone Number [address] [address] PATHOLOGY AND [email or web address] MEDICINE * CBC with platelet and differential (03/05/2018 10:15 AM CDT) WBC 6.28 4.50 - 11.00 k/uL [facility] DEPARTMENT OF PATHOLOGY AND GENOMIC MEDICINE RBC 3.96 (L) 4.20 - 5.50 m/uL [facility] DEPARTMENT OF PATHOLOGY AND GENOMIC MEDICINE HGB 11.5 (L) 12.0 - 16.0 g/dL [facility] DEPARTMENT OF PATHOLOGY AND GENOMIC MEDICINE HCT 35.4 (L) 37.0 - 47.0 % [facility] DEPARTMENT OF PATHOLOGY AND GENOMIC MEDICINE MCV 89.4 82.0 - 100.0 fL [facility] DEPARTMENT OF PATHOLOGY AND GENOMIC MEDICINE MCH 29.0 27.0 - 34.0 pg [facility] DEPARTMENT OF PATHOLOGY AND GENOMIC MEDICINE MCHC 32.5 31.0 - 37.0 g/dL [facility] DEPARTMENT OF PATHOLOGY AND GENOMIC MEDICINE RDW - SD 45.1 37.0 - 55.0 fL [facility] DEPARTMENT OF PATHOLOGY AND GENOMIC MEDICINE MPV 8.9 8.8 - 13.2 fL [facility] DEPARTMENT OF PATHOLOGY AND GENOMIC MEDICINE Platelet count 241 150 - 400 k/uL [facility] DEPARTMENT OF PATHOLOGY AND GENOMIC MEDICINE Nucleated RBC 0.00 /100 WBC [facility] DEPARTMENT OF PATHOLOGY AND GENOMIC MEDICINE Neutrophils 66.0 39.0 - 69.0 % [facility] DEPARTMENT OF PATHOLOGY AND GENOMIC MEDICINE Lymphocytes 24.8 (L) 25.0 - 45.0 % [facility] DEPARTMENT OF PATHOLOGY AND GENOMIC MEDICINE Monocytes 6.1 0.0 - 10.0 % [facility] DEPARTMENT OF PATHOLOGY AND GENOMIC MEDICINE Eosinophils 2.2 0.0 - 5.0 % [facility] DEPARTMENT OF PATHOLOGY AND GENOMIC MEDICINE Basophils 0.6 0.0 - 1.0 % [facility] DEPARTMENT OF PATHOLOGY AND GENOMIC MEDICINE Immature granulocytes 0.3Comment: "Immature 0.0 - 1.0 % [facility] DEPARTMENT OF granulocytes" (promyelocytes, PATHOLOGY AND myelocytes, metamyelocytes) GENOMIC MEDICINE Specimen Blood Performing Organization Address [facility] [place] [address] PATHOLOGY AND GENOMIC MEDICINE * Type and screen (03/05/2018 10:15 AM CDT) ABO grouping O [facility] DEPARTMENT OF PATHOLOGY AND GENOMIC MEDICINE Rh type POS [facility] DEPARTMENT OF PATHOLOGY AND GENOMIC MEDICINE Antibody screen (gel) NEG [facility] DEPARTMENT OF PATHOLOGY AND GENOMIC MEDICINE Specimen Blood Performing Organization Address [facility] [place] [address] PATHOLOGY AND [facility] * B natriuretic peptide (03/05/2018 10:15 AM CDT) BNP 11 0 - 100 pg/mL [facility] DEPARTMENT OF PATHOLOGY AND GENOMIC MEDICINE Specimen Blood Performing Organization Address City/[facility] Phone Number [address] [place] [address] PATHOLOGY AND GENOMIC MEDICINE * Lipase level (03/05/2018 10:15 AM CDT) Lipase 20 13 - 60 U/L [facility] DEPARTMENT OF PATHOLOGY AND GENOMIC MEDICINE Specimen Plasma specimen Performing Organization Address City/[facility] Cent[facility]ode Phone Number [address] [address] PATHOLOGY AND GENOMIC MEDICINE * Basic metabolic panel (03/05/2018 10:15 AM CDT) Sodium 141 135 - 148 mEq/L [facility] DEPARTMENT OF PATHOLOGY AND GENOMIC MEDICINE Potassium 4.5 3.5 - 5.0 mEq/L [facility] DEPARTMENT OF PATHOLOGY AND GENOMIC MEDICINE Chloride 103 98 - 112 mEq/L [facility] DEPARTMENT OF PATHOLOGY AND GENOMIC MEDICINE CO2 27 24 - 31 mEq/L [facility] DEPARTMENT OF PATHOLOGY AND GENOMIC MEDICINE Anion gap 11@ANIO 7 - 15 mEq/L [facility] DEPARTMENT OF PATHOLOGY AND GENOMIC MEDICINE BUN 10 6 - 20 mg/dL [facility] DEPARTMENT OF PATHOLOGY AND GENOMIC MEDICINE Creatinine 0.84 0.50 - 0.90 mg/dL [facility] DEPARTMENT OF PATHOLOGY AND GENOMIC MEDICINE Glucose 85 65 - 99 mg/dL [facility] DEPARTMENT OF PATHOLOGY AND GENOMIC MEDICINE Calcium 8.3 8.3 - 10.2 mg/dL [facility] DEPARTMENT OF PATHOLOGY AND GENOMIC MEDICINE Specimen Plasma specimen Performing Organization Address City/[facility] Cent[facility]ode Phone Number [facility] [place] [address] PATHOLOGY AND GENOMIC MEDICINE * XR Chest 1 Vw (03/05/2018 10:02 AM CDT) Narrative Performed At EXAM: RADIANT XR CHEST 1 VW INDICATION: Chest painACS suspected COMPARISON: None. IMPRESSION: Surgical clips right upper quadrant. Minimal linear opacity lateral aspect left lower lung, discoid atelectasis versus scar/fibrosis. No consolidation, pleural effusion, pneumothorax. Heart size is normal. Minimal degenerative changes thoracic spine. [id number] Procedure Note Interface, Radiology Results Incoming - 03/05/2018 10:06 AM CDT EXAM: XR CHEST 1 VW INDICATION: Chest pain ACS suspected COMPARISON: None. IMPRESSION: Surgical clips right upper quadrant. Minimal linear opacity lateral aspect left lower lung, discoid atelectasis versus scar/fibrosis. No consolidation, pleural effusion, pneumothorax. Heart size is normal. Minimal degenerative changes thoracic spine. [facility]-[id number] Performing Organization Address [facility] Phone Number [facility] [address] [place] [address] * XR Abdomen 1 Vw (03/05/2018 10:02 [...] are seen in the right upper quadrant. [id number] Procedure Note Hm Interface, Radiology Results Incoming [...] are seen in the right upper quadrant. [id number] Performing Organization Address [facility] Phone Number [facility] [address] [place] [address] * ECG 12 lead (03/05/2018 9:02 AM CDT) Ventricular rate 94 [facility] Atrial rate 94 [facility] HI interval 194 [facility] QRSD interval 128 [facility] QT interval 388 [facility] QTC interval 485 [facility] P axis 1 50 [facility] QRS axis 1 22 [facility] T wave axis 48 [facility] EKG impression Normal sinus [facility] rhythm-Nonspecific intraventricular block-Abnormal ECG-No previous ECGs available- Performing Organization Address City/State/Zipcode Phone Number [facility] MUSE [address] [place] [address] after 04/27/2017 Insurance Payer Benefit Subscriber ID Type Phone Address Plan / Group [employer] AMER[employer] xxxxxxxx HMO ST[employer]US DEDRICK Advance Directives Patient has advance care planning documents on file. For more information, ivan rousseau contact: Jai Zee [address] [place] [address]
--- OUTSIDE RECORDS SUMMARY | 2018-04-28 08:54 | XMS REPORT | Clinical Summary ---
Author Author RICK [facility] Address Unknown Phone Unavailable Care Team Providers Care Crew Member Name Role Phone Sharpless PCP Unavailable Allergies [...] AM CDT) Narrative Performed At FINAL REPORT [facility] CT of the abdomen and pelvis, with [...] MD Report Verified Date/Time:10/25/2017 10:25:23 Reading Location: [facility] C013 Ortho Consult Reading Room Procedure [...] Report Verified Date/Time: 10/25/2017 10:25:23 Reading Location: [facility] [id number] Ortho Consult Reading Room Performing Organization Address City/State/Zipcode Phone Number [facility] * Urinalysis w/Microscopic + Reflex to Culture (10/25/2017 8:37 AM CDT) Color, UA Light Yellow [facility] Clarity, UA Clear [facility] Specific [place], UA 1.005 1.001 - 1.035 [facility] pH, UA 6.0 5.0 - 8.0 [facility] Protein, UA Negative Negative [facility] Glucose, UA Negative Negative [facility] Ketones, UA Negative Negative [facility] Bilirubin, UA Negative Negative [facility] Blood, UA Negative Negative [facility] Nitrite, UA Negative Negative [facility] Leukocytes, UA Negative Negative [facility] Urobilinogen, UA 0.2 0.2 - 1.0 mg/dL [facility] RBC, UA <1 /HPF [facility] WBC, UA 6 /HPF [facility] Bacteria, UA Rare [facility] Mucus Rare [facility] Squam Epithel, UA 3 /HPF [facility] Amorphous Crystals Rare [facility] Specimen Source [facility] Specimen Urine - Urine, Clean Catch Performing Organization Address City/State/Zipcode Phone Number [facility] [address] [place] [address] MEDICAL CENTER * CBC with platelet count + automated diff (10/25/2017 8:37 AM CDT) WBC 6.2 3.5 - 10.5 K/L [facility] RBC 4.48 3.93 - 5.22 M/L [facility] Hemoglobin 12.7 11.2 - 15.7 GM/DL [facility] Hematocrit 39.5 34.1 - 44.9 % [facility] MCV 88.2 79.4 - 94.[address] [facility] MCH 28.3 25.6 - 32.[address] [facility] MCHC 32.2 32.2 - 35.5 GM/DL [facility] RDW 13.9 11.7 - 14.4 % [facility] Platelets 259 150 - 450 K/CU MM [facility] MPV 9.6 9.4 - 12.[address] [facility] nRBC 0 0 - 0 /[address] [facility] % Neutros 67 % [facility] % Lymphs 25 % [facility] % Monos 6 % [facility] % Eos 2 % [facility] % Baso 0 % [facility] # Neutros 4.15 1.56 - 6.13 K/L [facility] # Lymphs 1.52 1.18 - 3.74 K/L [facility] # Monos 0.38 (H) 0.24 - 0.36 K/L [facility] # Eos 0.09 0.04 - 0.36 K/L [facility] # Baso 0.02 0.01 - 0.08 K/L [facility] Immature 1 0 - 1 % [facility] Granulocytes-[facility] Specimen Blood Performing Organization Address City/State/Zipcode Phone Number [facility] [address] [place] [address] MEDICAL CENTER * Urine culture (10/25/2017 8:37 AM CDT) Result ESCHERICHIA COLI (A) [facility] Specimen Urine - Urine, Clean Catch Narrative Performed At 10-19,000 col/mL skin ronaldo [facility] Antibiotic Method Susceptibility Organism Amikacin <=2: [...] <=20: Susceptible Escherichia coli Performing Organization Address [facility] Phone Number [address] * Lipase (10/25/2017 8:37 AM CDT) Lipase 40 8 - 78 U/L [facility] Specimen Blood Performing Organization Address [facility] Phone Number [address] * Comprehensive metabolic panel (10/25/2017 8:37 AM CDT) Protein, Total 6.3 6.0 - 8.3 gm/dL [facility] Albumin 3.9 3.5 - 5.0 g/dL [facility] Alkaline Phosphatase 80 40 - 150 U/L [facility] Total Bilirubin 0.2 0.2 - 1.2 mg/dL [facility] Sodium 142 136 - 145 meq/L [facility] Potassium 3.8 3.5 - 5.1 meq/L [facility] Chloride 111 (H) 98 - 107 meq/L [facility] CO2 23 22 - 29 meq/L [facility] BUN 14 7 - 21 mg/dL [facility] Creatinine 0.80 0.57 - 1.25 mg/dL [facility] Glucose 126 (H) 70 - 105 mg/dL [facility] Calcium 8.8 8.4 - 10.2 mg/dL [facility] AST 14 5 - 34 U/L [facility] ALT 21 6 - 55 U/L [facility] EGFR 80Comment: ESTIMATED GFR IS mL/min/1.73 sq m [facility] NOT ACCURATE CREATININE [facility] CLEARANCE IN PREDICTING GLOMERULAR FILTRATION RATE. ESTIMATED GFR IS NOT APPLICABLE FOR DIALYSIS PATIENTS. Specimen Blood Performing Organization Address City/State/Zipcode Phone Number [facility] [address] [place] [address] [facility] after 04/27/2017 Insurance Payer Benefit Subscriber ID Type Phone Address Plan / Group MEDICAID - MEDICAID MGD MEDICAID xxxxxxxxx Medicaid CARE [employer] Non-Contra cted
[2018-04-28 08:59] LABS: BASOPHILS % 0.7 % (0.0-1.0); EOSINOPHILS # (AUTO) 0.1 (0.0-0.4); EOSINOPHILS % 2.2 % (0.0-6.0); HEMATOCRIT 38.6 % (34.2-44.1); HEMOGLOBIN 13.1 g/dL (12.0-16.0); LYMPHOCYTES # (AUTO) 1.7 (1.0-3.2); LYMPHOCYTES % 28.5 % (18.0-39.1); MEAN CORPUSCULAR HEMOGLOBIN 29.8 pg (28-32); MEAN CORPUSCULAR HGB CONC 33.9 g/dL (31-35); MEAN CORPUSCULAR VOLUME 87.9 fL (81-99); MONOCYTES # (AUTO) 0.3 (0.2-0.8); MONOCYTES % 4.6 % (4.4-11.3); NEUTROPHILS # (AUTO) 3.7 (2.1-6.9); NEUTROPHILS % 63.7 % (38.7-80.0); PLATELET COUNT 249 x10e3/uL (140-360); RED BLOOD COUNT 4.39 x10e6/uL (3.6-5.1); RED CELL DISTRIBUTION WIDTH 13.8 % (11.7-14.4)
[2018-04-28 09:03] LABS: BILIRUBIN,URINE NEGATIVE (NEGATIVE); CLARITY,URINE HAZY (CLEAR); COLOR,URINE YELLOW (YELLOW); KETONES,URINE NEGATIVE (NEGATIVE); LEUKOCYTE ESTERASE ,URINE NEGATIVE (NEGATIVE); NITRITE,URINE NEGATIVE (NEGATIVE); PROTEIN,URINE DIPSTICK NEGATIVE (NEGATIVE); URINE UROBILINOGEN 0.2 mg/dL (0.2 - 1)
[2018-04-28 09:07] LABS: BACTERIA,URINE MODERATE /HPF; EPITHELIAL CELLS,URINE MODERATE /LPF; RBC,URINE 0-5 /HPF (0-5); WBC,URINE (MAN) 0-5 /HPF (0-5)
[2018-04-28 09:46] LABS: ALANINE AMINOTRANSFERASE 27 IU/L (0-55); ALBUMIN 3.6 g/dL (3.5-5.0); ALBUMIN/GLOBULIN RATIO 1.1 (0.8-2.0); ALKALINE PHOSPHATASE 108 IU/L (40-150); ANION GAP 11.9 mmol/L (8-16); BLOOD UREA NITROGEN 11 mg/dL (7-26); BUN/CREATININE RATIO 13 (6-25); CALCIUM 9.1 mg/dL (8.4-10.2); CARBON DIOXIDE 23 mmol/L (22-29); CHLORIDE 103 mmol/L (98-107); CREATININE, SERUM 0.84 mg/dL (0.57-1.11); EST GLOMERULAR FILTRATION RATE > 60 ML/MIN (60-); GLUCOSE 121 mg/dL (74-118); LIPASE 29 U/L (8-78); POTASSIUM 3.9 mmol/L (3.5-5.1); SODIUM 134 mmol/L (136-145)
[2018-04-28 11:03] LABS: AMPHETAMINES SCREEN,URINE NEGATIVE (NEGATIVE); BENZODIAZEPINES SCREEN,URINE POSITIVE (NEGATIVE); PHENCYCLIDINE SCREEN,URINE NEGATIVE (NEGATIVE)
== END 2018-04-28 11:28 | disposition left against medical advice (07) ==
LOC: ER 08:51
DX: R10.33 Periumbilical pain (principal); R10.84 Generalized abdominal pain; R11.0 Nausea; F17.210 Nicotine dependence, cigarettes, uncomplicated
CPT/HCPCS: 36415; 80053; 80307; 81001; 83690; 85025; 99283; J1885; Q0162

== ENCOUNTER 2018-06-03 08:45 | Emergency (ER) | payer OTHER ==
[~2018-06-03] VITALS: Ht 162.6 cm; Wt 99.8 kg
--- OUTSIDE RECORDS SUMMARY | 2018-06-03 08:48 | XMS REPORT | Clinical Summary ---
Author Author RICK [facility] Address Unknown Phone Unavailable Care Team Providers Care Professional Architect Name Role Phone Sharpless PCP Unavailable Allergies [...] Mild dehydration 10/25/2017 Emergency Emergency Medicine after 06/02/2017 Social History Date Tobacco Use Types Packs/Day [...] CULTURE STAT 10/25/2017 8:37 AM CDT after 06/02/2017 Results * CT abdomen pelvis with IV contrast (10/25/2017 10:19 AM CDT) Narrative Performed At FINAL REPORT [facility] CT of the abdomen and pelvis, [...] Report Verified Date/Time:10/25/2017 10:25:23 Reading Location: [facility] C013 Ortho Consult Reading Room Procedure [...] Verified Date/Time: 10/25/2017 10:25:23 Reading Location: [facility] C013X Ortho Consult Reading Room Performing Organization Address City/State/Zipcode Phone Number [facility] * Urinalysis w/Microscopic + Reflex to Culture (10/25/2017 8:37 AM CDT) Color, UA Light Yellow [facility] Clarity, UA Clear [facility] Specific [place], UA 1.005 1.001 - 1.035 [facility] pH, UA 6.0 5.0 - 8.0 [facility] Protein, UA Negative Negative [facility] Glucose, UA Negative Negative [facility] Ketones, UA Negative Negative [facility] Bilirubin, UA Negative Negative [facility] Blood, UA Negative Negative [facility] Nitrite, UA Negative Negative [facility] Leukocytes, UA Negative Negative [facility] Urobilinogen, UA 0.2 0.2 - 1.0 mg/dL [facility] RBC, UA <1 /HPF [facility] WBC, UA 6 /HPF [facility] Bacteria, UA Rare [facility] Mucus Rare [facility] Squam Epithel, UA 3 /HPF [facility] Amorphous Crystals Rare [facility] Specimen Source [facility] Specimen Urine - Urine, Clean Catch Performing Organization Address City/State/Zipcode Phone Number [facility] [address] [place] [address] MEDICAL CENTER * CBC with platelet count + automated diff (10/25/2017 8:37 AM CDT) WBC 6.2 3.5 - 10.5 K/L [facility] RBC 4.48 3.93 - 5.22 M/L [facility] Hemoglobin 12.7 11.2 - 15.7 GM/DL [facility] Hematocrit 39.5 34.1 - 44.9 % [facility] MCV 88.2 79.4 - 94.8 fL [facility] MCH 28.3 25.6 - 32.2 pg [facility] MCHC 32.2 32.2 - 35.5 GM/DL [facility] RDW 13.9 11.7 - 14.4 % [facility] Platelets 259 150 - 450 K/CU MM [facility] MPV 9.6 9.4 - 12.3 fL [facility] nRBC 0 0 - 0 /100 WBC [facility] % Neutros 67 % [facility] % Lymphs 25 % [facility] % Monos 6 % [facility] % Eos 2 % [facility] % Baso 0 % [facility] # Neutros 4.15 1.56 - 6.13 K/L [facility] # Lymphs 1.52 1.18 - 3.74 K/L [facility] # Monos 0.38 (H) 0.24 - 0.36 K/L [facility] # Eos 0.09 0.04 - 0.36 K/L [facility] # Baso 0.02 0.01 - 0.08 K/L [facility] Immature 1 0 - 1 % [facility] Granulocytes-[facility] Specimen Blood Performing Organization Address City/State/Zipcode Phone Number [facility] [address] [place] [address] MEDICAL CENTER * Urine culture (10/25/2017 8:37 AM CDT) Result ESCHERICHIA COLI (A) [facility] Specimen Urine - Urine, Clean Catch Narrative Performed At 10-19,000 col/mL skin ronaldo [facility] Antibiotic Method Susceptibility Organism Amikacin <=2: Susceptible [...] <=20: Susceptible Escherichia coli Performing Organization Address [facility] Phone Number [address] * Lipase (10/25/2017 8:37 AM CDT) Lipase 40 8 - 78 U/L [facility] Specimen Blood Performing Organization Address [facility] Phone Number [address] * Comprehensive metabolic panel (10/25/2017 8:37 AM CDT) Protein, Total 6.3 6.0 - 8.3 gm/dL [facility] Albumin 3.9 3.5 - 5.0 g/dL [facility] Alkaline Phosphatase 80 40 - 150 U/L [facility] Total Bilirubin 0.2 0.2 - 1.2 mg/dL [facility] Sodium 142 136 - 145 meq/L [facility] Potassium 3.8 3.5 - 5.1 meq/L [facility] Chloride 111 (H) 98 - 107 meq/L [facility] CO2 23 22 - 29 meq/L [facility] BUN 14 7 - 21 mg/dL [facility] Creatinine 0.80 0.57 - 1.25 mg/dL [facility] Glucose 126 (H) 70 - 105 mg/dL [facility] Calcium 8.8 8.4 - 10.2 mg/dL [facility] AST 14 5 - 34 U/L [facility] ALT 21 6 - 55 U/L [facility] EGFR 80Comment: ESTIMATED GFR IS mL/min/1.[address] [facility] NOT ACCURATE CREATININE [facility] CLEARANCE IN PREDICTING GLOMERULAR FILTRATION RATE. ESTIMATED GFR IS NOT APPLICABLE FOR DIALYSIS PATIENTS. Specimen Blood Performing Organization Address City/State/Zipcode Phone Number [facility] [address] [place] [address] [facility] after 06/02/2017 Insurance Payer Benefit Subscriber ID Type Phone Address Plan / Group MEDICAID - MEDICAID MGD MEDICAID xxxxxxxxx Medicaid CARE [employer] Non-Contra cted
--- OUTSIDE RECORDS SUMMARY | 2018-06-03 08:48 | XMS REPORT | Clinical Summary ---
Author Author [employer] [facility] [employer] Address Unknown Phone Unavailable Care Team Providers Care [employer] Name Role Phone Asked, No Pcp PCP [...] (Primary Dx) 03/05/2018 Emergency Emergency Medicine after 06/02/2017 Social History [...] CANCER SCREENING 1998 INFLUENZA VACCINE 12/30/2017 Procedures Comments Procedure Name Priority Date/Time Associated [...] 12-LEAD STAT 03/05/2018 9:02 AM CDT after 06/02/2017 Results * Lactic acid level, SEPSIS - Now and repeat 2x every 3 hours (03/05/2018 1:15 PM CDT) Only the most recent of 2 results within the time period is included. Lactic acid 1.4 0.5 - 2.2 mmol/L [facility] DEPARTMENT OF PATHOLOGY AND GENOMIC MEDICINE Specimen Blood Performing Organization Address City/State/Zipcode Phone Number [facility] DEPARTMENT OF [address] [place] [address] PATHOLOGY AND GENOMIC MEDICINE * CT Chest [...] No fluid collections. IMPRESSION: No acute abnormality. [id number] Procedure Note Hm Interface, Radiology Results Incoming [...] No fluid collections. IMPRESSION: No acute abnormality. [id number] Performing Organization Address [facility]/[place] [address] * Estimated GFR (03/05/2018 10:15 AM CDT) Estimated GFR 87 mL/min/1.[address] [facility] DEPARTMENT OF Comment: PATHOLOGY AND [employer] GENOMIC MEDICINE rpretation G1 >=90 Normal or high G2 60-89Mildly decreased [id number] Mildly to moderately decreased [id number] Moderately to severely decreased G4 15-29Severely decreased G5 <15Kidney failure The eGFR was calculated using the Chronic Kidney Disease Epidemiology Collaboration (CKD-EPI) equation. Interpretation is based on recommendations of the National Kidney Foundation-Kidney Disease Outcomes Quality Initiative (NKF-KDOQI) published in 2014. Specimen Plasma specimen Performing Organization Address [facility] [place] [address] PATHOLOGY AND GENOMIC MEDICINE * Troponin (03/05/2018 10:15 AM CDT) Troponin <0.30 0.00 - 0.30 ng/mL [facility] DEPARTMENT OF Comment: PATHOLOGY AND 0.30 - 1.49 GENOMIC MEDICINE ng/mlMay indicate increased risk of acute coronary syndrome. >=1.5 ng/ml Consistent with acute myocardial infarction. The diagnostic value of a single normal or non-diagnostic result is questionable.Serial samples at 2-6 hour intervals are required to rule out acute myocardial injury. Specimen Plasma specimen Performing Organization Address [facility] [place] [address] PATHOLOGY AND [employer] MEDICINE * Partial thromboplastin time, activated (03/05/2018 10:15 AM CDT) PTT 29.9 23.0 - 36.[address] [facility] DEPARTMENT OF Comment: PATHOLOGY AND PTT therapeutic range for GENOMIC MEDICINE unfractionated heparin is 61.0-112.0 seconds which corresponds to Anti-Xa 0.3-0.7 U/ml. Specimen Blood Performing Organization Address [facility]/Zip[place] [address] PATHOLOGY AND [employer] [facility]ICINE * Prothrombin time with INR (03/05/2018 10:15 AM CDT) Prothrombin time 14.1 12.0 - 15.[address] [facility] DEPARTMENT OF PATHOLOGY AND GENOMIC MEDICINE INR 1.[address] [facility] DEPARTMENT OF Comment: PATHOLOGY AND The International Normalized GENOMIC MEDICINE Ratio (INR) is a therapeutic monitoring tool for patients who are stable on oral anticoagulant therapy. An INR of 2.0-3.0 is suggested for deep vein thrombosis/pulmonary embolism. Specimen Blood Performing Organization Address [facility] [place] [address] PATHOLOGY AND GENOMIC MEDICINE * D-dimer (03/05/2018 10:15 AM CDT) D-dimer 0.92 (H) 0.00 - 0.40 ug/mL FEU [facility] DEPARTMENT OF Comment: PATHOLOGY AND Units [...] and malignancies. Specimen Blood Performing Organization Address City/[facility] Phone Number [address] [address] PATHOLOGY AND [employer] MEDICINE * CBC with platelet and differential (03/05/2018 10:15 AM CDT) WBC 6.28 4.50 - 11.00 k/uL [facility] DEPARTMENT OF PATHOLOGY AND GENOMIC MEDICINE RBC 3.96 (L) 4.20 - 5.50 m/uL [facility] DEPARTMENT OF PATHOLOGY AND GENOMIC MEDICINE HGB 11.5 (L) 12.0 - 16.0 g/dL [facility] DEPARTMENT OF PATHOLOGY AND GENOMIC MEDICINE HCT 35.4 (L) 37.0 - 47.0 % [facility] DEPARTMENT OF PATHOLOGY AND GENOMIC MEDICINE MCV 89.4 82.0 - 100.[address] [facility] DEPARTMENT OF PATHOLOGY AND GENOMIC MEDICINE MCH 29.0 27.0 - 34.[address] [facility] DEPARTMENT OF PATHOLOGY AND GENOMIC MEDICINE MCHC 32.5 31.0 - 37.0 g/dL [facility] DEPARTMENT OF PATHOLOGY AND GENOMIC MEDICINE RDW - SD 45.1 37.0 - 55.[address] [facility] DEPARTMENT OF PATHOLOGY AND GENOMIC MEDICINE MPV 8.9 8.8 - 13.[address] [facility] DEPARTMENT OF PATHOLOGY AND GENOMIC MEDICINE Platelet count 241 150 - 400 k/uL [facility] DEPARTMENT OF PATHOLOGY AND GENOMIC MEDICINE Nucleated RBC 0.00 /[address] [facility] DEPARTMENT OF PATHOLOGY AND GENOMIC MEDICINE Neutrophils 66.0 39.0 - 69.0 % [facility] DEPARTMENT OF PATHOLOGY AND GENOMIC MEDICINE Lymphocytes 24.8 (L) 25.0 - 45.0 % [facility] DEPARTMENT OF PATHOLOGY AND GENOMIC MEDICINE Monocytes 6.1 0.0 - 10.0 % [facility] DEPARTMENT OF PATHOLOGY AND GENOMIC MEDICINE Eosinophils 2.2 0.0 - 5.0 % [facility] DEPARTMENT OF PATHOLOGY AND GENOMIC MEDICINE Basophils 0.6 0.0 - 1.0 % [facility] DEPARTMENT OF PATHOLOGY AND GENOMIC MEDICINE Immature granulocytes 0.3Comment: "Immature 0.0 - 1.0 % [facility] DEPARTMENT OF granulocytes" (promyelocytes, PATHOLOGY AND myelocytes, metamyelocytes) GENOMIC MEDICINE Specimen Blood Performing Organization Address City/[facility] Phone Number [facility] [place] [place] [address] PATHOLOGY AND GENOMIC MEDICINE * Type and screen (03/05/2018 10:15 AM CDT) ABO grouping O [facility] DEPARTMENT OF PATHOLOGY AND GENOMIC MEDICINE Rh type POS [facility] DEPARTMENT OF PATHOLOGY AND GENOMIC MEDICINE Antibody screen (gel) NEG [facility] DEPARTMENT OF PATHOLOGY AND GENOMIC MEDICINE Specimen Blood Performing Organization Address [facility] Phone Number [facility] [place] [address] PATHOLOGY AND GENOMIC MEDICINE * B natriuretic peptide (03/05/2018 10:15 AM CDT) BNP 11 0 - 100 pg/mL [facility] DEPARTMENT OF PATHOLOGY AND GENOMIC MEDICINE Specimen Blood Performing Organization Address City/[facility]/Zipcode Phone Number [facility] [place] [address] PATHOLOGY AND [facility] MEDICINE * Lipase level (03/05/2018 10:15 AM CDT) Lipase 20 13 - 60 U/L [facility] DEPARTMENT OF PATHOLOGY AND GENOMIC MEDICINE Specimen Plasma specimen Performing Organization Address City/[facility]/Zipcode Phone Number [facility] [place] [address] PATHOLOGY AND GENOMIC MEDICINE * Basic metabolic panel (03/05/2018 10:15 AM CDT) Sodium 141 135 - 148 mEq/L [facility] DEPARTMENT OF PATHOLOGY AND GENOMIC MEDICINE Potassium 4.5 3.5 - 5.0 mEq/L [facility] DEPARTMENT OF PATHOLOGY AND GENOMIC MEDICINE Chloride 103 98 - 112 mEq/L [facility] DEPARTMENT OF PATHOLOGY AND GENOMIC MEDICINE CO2 27 24 - 31 mEq/L [facility] DEPARTMENT OF PATHOLOGY AND GENOMIC MEDICINE Anion gap 11@ANIO 7 - 15 mEq/L [facility] DEPARTMENT OF PATHOLOGY AND GENOMIC MEDICINE BUN 10 6 - 20 mg/dL [facility] DEPARTMENT OF PATHOLOGY AND GENOMIC MEDICINE Creatinine 0.84 0.50 - 0.90 mg/dL [facility] DEPARTMENT OF PATHOLOGY AND GENOMIC MEDICINE Glucose 85 65 - 99 mg/dL [facility] DEPARTMENT OF PATHOLOGY AND GENOMIC MEDICINE Calcium 8.3 8.3 - 10.2 mg/dL [facility] DEPARTMENT OF PATHOLOGY AND GENOMIC MEDICINE Specimen Plasma specimen Performing Organization Address City/[facility] Hospital[facility] [place] [address] PATHOLOGY AND GENOMIC MEDICINE * XR Chest 1 Vw (03/05/2018 10:02 AM CDT) Narrative Performed At EXAM: RADIANT XR CHEST 1 VW INDICATION: Chest painACS suspected COMPARISON: None. IMPRESSION: Surgical clips right upper quadrant. Minimal linear opacity lateral aspect left lower lung, discoid atelectasis versus scar/fibrosis. No consolidation, pleural effusion, pneumothorax. Heart size is normal. Minimal degenerative changes thoracic spine. [facility]-[id number] Procedure Note Interface, Radiology Results Incoming - 03/05/2018 10:06 AM CDT EXAM: XR CHEST 1 VW INDICATION: Chest pain ACS suspected COMPARISON: None. IMPRESSION: Surgical clips right upper quadrant. Minimal linear opacity lateral aspect left lower lung, discoid atelectasis versus scar/fibrosis. No consolidation, pleural effusion, pneumothorax. Heart size is normal. Minimal degenerative changes thoracic spine. [facility]-[id number] Performing Organization Address City/[facility] Phone Number [facility] [address] [place] [address] * XR Abdomen 1 Vw (03/05/2018 10:02 [...] are seen in the right upper quadrant. [id number] Procedure Note Hm Interface, Radiology Results Incoming [...] are seen in the right upper quadrant. [id number] Performing Organization Address City/[facility] Phone Number [employer] [address] [place] [address] * ECG 12 lead (03/05/2018 9:02 AM CDT) Ventricular rate 94 [facility] Atrial rate 94 [facility] UT interval 194 [facility] QRSD interval 128 [facility] QT interval 388 [facility] QTC interval 485 [facility] P axis 1 50 [facility] QRS axis 1 22 [facility] T wave axis 48 [facility] EKG impression Normal sinus [facility] rhythm-Nonspecific intraventricular block-Abnormal ECG-No previous ECGs available- Performing Organization Address City/[facility] Phone Number [place] [address] [place] [address] after 06/02/2017 Insurance Payer Benefit Subscriber ID Type Phone Address Plan / Group [employer] xxxxxxxx HMO [employer]RICK Advance Directives Patient has advance care planning documents on file. For more information, ivan rousseau contact: Jai Zee [address] [place] [address]
--- OUTSIDE RECORDS SUMMARY | 2018-06-03 08:48 | XMS REPORT | Continuity of Care Document ---
Author Author [facility] Interface Address Unknown Phone Unavailable Problems Problem Status Onset Date Classification Date Reported Comments Source DEPRESSIVE DISORDER, MAJOR, RECURRENT EPISODE, W/ PSYCHOTIC FEATURES Active 10/21/2017 Diagnosis 05/05/2018 [facility] PTSD Active 08/28/2017 Diagnosis 05/05/2018 [facility] PANIC DISORDER Active 08/28/2017 Diagnosis 05/05/2018 [facility] INSOMNIA DISORDER, PERSISTENT Active 08/28/2017 Diagnosis 05/05/2018 [facility] Pancreatitis, acute Active Problem 04/28/2018 [facility] Medications Medication Details Route Status Patient Instructions [...] Tablet Daily for 10 Active Bigg 03/04/2018 [facility] Levofloxacin (Levaquin) 500 Mg Tablet Daily for 10 Active Bigg 03/04/2018 [facility] Cephalexin Monohydrate (Keflex) 500 Mg Capsule Every 6 Hours Active Bigg 01/21/2018 [facility] Prednisone 20 Mg Tab Daily Active Bigg 01/21/2018 [facility] Cephalexin Monohydrate (Keflex) 500 Mg Capsule Every 6 Hours Active Bigg 01/21/2018 [facility] Prednisone 20 Mg Tab Daily Active Bigg 01/21/2018 [facility] WELLBUTRIN XL 150 MG ORAL TABLET EXTENDED [...] 8 Hours as needed for Pain Active Jarek 08/24/2017 [facility] Cyclobenzaprine Hcl 10 Mg Tablet, 5 Mg Oral Three Times A Day Active Jarek 08/24/2017 [facility] Ondansetron (Zofran Odt) 4 Mg Tab.rapdis, 4 Mg Oral Q4- 6H Prn Active Jarek 08/24/2017 [facility] Polyethylene Glycol 3350 (Miralax) 17 Gm Powd.pack, 17 Gm Oral Twice A Day Active [facility] 08/24/2017 [facility] Senna Fruit/Conc/Doc Sod/Bisa 1 Ea Tab, 2 Ea Oral Bedtime Active [facility] 08/24/2017 [facility] Acetaminophen With Codeine (Tylenol With Codeine #3 Tablet) 1 Each Tablet, 300 Mg Oral Every 8 Hours as needed for Pain Active [facility] 08/24/2017 [facility] Cyclobenzaprine Hcl 10 Mg Tablet, 5 Mg Oral Three Times A Day Active [facility] 08/24/2017 [facility] Ondansetron (Zofran Odt) 4 Mg Tab.rapdis, 4 Mg Oral Q4- 6H Prn Active [facility] 08/24/2017 [facility] Polyethylene Glycol 3350 (Miralax) 17 Gm Powd.pack, 17 Gm Oral Twice A Day Active [facility] 08/24/2017 [facility] DIAZEPAM TAKE 1 TABLET BY MOUTH AT BEDTIME NEEDED FOR BREAKTHROUGH ANXIETY Active TAKE 1 TABLET BY MOUTH AT BEDTIME NEEDED FOR BREAKTHROUGH ANXIETY [facility] Allergies, Adverse Reactions, Alerts Substance Category Reaction Severity Reaction type Status Date Reported Comments Source Codeine Mild Allergy to Substance Active 04/28/2018 [facility] Tramadol Unknown Allergy to Substance Active 04/28/2018 [facility] Immunizations Immunization Date Given Site Status Last Updated Comments Source Results Order Name Results Value Reference Range Date Interpretation Comments Source Blood leukocytes automated count (number/volume) 5.83 4.8 - 10.8 04/28/2018 [facility] Blood erythrocytes automated count (number/volume) 4.39 3.6 - 5.1 04/28/2018 [facility] Blood hemoglobin measurement (moles/volume) 13.1 12.0 - 16.0 04/28/2018 [facility] Automated blood hematocrit (volume fraction) 38.6 34.2 - 44.1 04/28/2018 [facility] Automated erythrocyte mean corpuscular volume 87.9 81 - 99 04/28/2018 [facility] Automated erythrocyte mean corpuscular hemoglobin (mass per erythrocyte) 29.8 28 - 32 04/28/2018 [facility] Automated erythrocyte mean corpuscular hemoglobin concentration measurement (mass/volume) 33.9 31 - 35 04/28/2018 [facility] RDW BldCo-Rto 13.8 11.7 - 14.4 04/28/2018 [facility] Automated blood platelet count (count/volume) 249 140 - 360 04/28/2018 [facility] Automated blood segmented neutrophil count as percentage of total leukocytes 63.7 38.7 - 80.0 04/28/2018 [facility] Automated blood lymphocyte count as percentage ot total leukocytes 28.5 18.0 - 39.1 04/28/2018 [facility] Automated blood monocyte count as percentage of total leukocytes 4.6 4.4 - 11.3 04/28/2018 [facility] Automated blood eosinophil count as percentage of total leukocytes 2.2 0.0 - 6.0 04/28/2018 [facility] Automated blood basophil count as percentage of total leukocytes 0.7 0.0 - 1.0 04/28/2018 [facility] IM GRANULOCYTES % 0.3 0.0 - 1.0 04/28/2018 [facility] Automated blood neutrophil count 3.7 2.1 - 6.9 04/28/2018 [facility] Blood lymphocytes count (number/volume) 1.7 1.0 - 3.2 04/28/2018 [facility] Blood monocytes automated count (number/volume) 0.3 0.2 - 0.8 04/28/2018 [facility] Automated blood eosinophil count 0.1 0.0 - 0.4 04/28/2018 [facility] Automated blood basophil count (count/volume) 0.0 0.0 - 0.1 04/28/2018 [facility] Absolute Immature Granulocyte (auto 0.02 0 - 0.1 04/28/2018 [facility] Urine color determination YELLOW YELLOW 04/28/2018 [facility] Urine clarity HAZY CLEAR 04/28/2018 [facility] Specific gravity of Urine by Test strip 1.005 1.010 - 1.025 04/28/2018 [facility] Urine pH measurement by automated test strip 6 5 - 7 04/28/2018 [facility] Urine leukocyte esterase detection by dipstick NEGATIVE NEGATIVE 04/28/2018 [facility] Urine nitrite detection NEGATIVE NEGATIVE 04/28/2018 [facility] Urine protein measurement by test strip (mass/volume) NEGATIVE NEGATIVE 04/28/2018 [facility] Urine glucose detection NEGATIVE NEGATIVE 04/28/2018 [facility] Urine ketones detection by automated test strip NEGATIVE NEGATIVE 04/28/2018 [facility] Urine opiates screening test NEGATIVE NEGATIVE 04/28/2018 [facility] Barbiturates screen, urine NEGATIVE NEGATIVE 04/28/2018 [facility] Urine phencyclidine detection by screening method NEGATIVE NEGATIVE 04/28/2018 [facility] Urine amphetamines detection by screen method > 1000 ng/mL NEGATIVE NEGATIVE 04/28/2018 [facility] Urine Methamphetamines Screen NEGATIVE NEGATIVE 04/28/2018 [facility] Urine benzodiazepines detection by screening method POSITIVE NEGATIVE 04/28/2018 [facility] Urine cocaine measurement (mass/volume) NEGATIVE NEGATIVE 04/28/2018 [facility] Urine cannabinoids detection by screening method POSITIVE NEGATIVE 04/28/2018 [facility] Urine methadone screen NEGATIVE NEGATIVE 04/28/2018 [facility] Urine urobilinogen measurement by test strip (mass/volume) 0.2 0.2 - 1 04/28/2018 [facility] Urine total bilirubin measurement (mass/volume) NEGATIVE NEGATIVE 04/28/2018 [facility] Urine erythrocytes detection NEGATIVE NEGATIVE 04/28/2018 [facility] Automated urine sediment leukocyte count by microscopy (number/high power field) 0-5 0 - 5 04/28/2018 [facility] Erythrocytes detection in urine sediment by light microscopy 0-5 0 - 5 04/28/2018 [facility] Bacteria detection in urine sediment by light microscopy MODERATE NONE 04/28/2018 [facility] Epithelial cells detection in urine sediment by light microscopy MODERATE NONE 04/28/2018 [facility] Serum or plasma sodium measurement (moles/volume) 134 136 - 145 04/28/2018 [facility] Serum or plasma potassium measurement (moles/volume) 3.9 3.5 - 5.1 04/28/2018 [facility] Serum or plasma chloride measurement (moles/volume) 103 98 - 107 04/28/2018 [facility] Serum or plasma carbon dioxide, total measurement (moles/volume) 23 22 - 29 04/28/2018 [facility] Serum or plasma anion gap 11.9 8 - 16 04/28/2018 [facility] Serum or plasma urea nitrogen measurement (mass/volume) 11 7 - 26 04/28/2018 [facility] Serum or plasma creatinine measurement (mass/volume) 0.84 0.57 - 1.11 04/28/2018 [facility] Serum or plasma urea nitrogen/creatinine mass ratio 13 6 - 25 04/28/2018 [facility] Estimated glomerular filtration rate (GFR) determination > 60 60 04/28/2018 [facility] Glucose measurement 121 74 - 118 04/28/2018 [facility] Serum or plasma calcium measurement (mass/volume) 9.1 8.4 - 10.2 04/28/2018 [facility] Serum or plasma total bilirubin measurement (mass/volume) 0.3 0.2 - 1.2 04/28/2018 [facility] Aspartate Amino Transf (AST/SGOT) 19 5 - 34 04/28/2018 [facility] Serum or plasma alanine aminotransferase measurement (enzymatic activity/volume) 27 0 - 55 04/28/2018 [facility] Serum or plasma protein measurement (mass/volume) 6.9 6.5 - 8.1 04/28/2018 [facility] Serum or plasma albumin measurement (mass/volume) 3.6 3.5 - 5.0 04/28/2018 [facility] Plasma globulin measurement (mass/volume) 3.3 2.3 - 3.5 04/28/2018 [facility] Serum or plasma albumin/globulin mass ratio 1.1 0.8 - 2.0 04/28/2018 [facility] Serum or plasma alkaline phosphatase measurement (enzymatic activity/volume) 108 40 - 150 04/28/2018 [facility] Serum or plasma lipase measurement (enzymatic activity/volume) 29 8 - 78 04/28/2018 [facility] Serum or plasma amylase measurement (enzymatic activity/volume) 101 25 - 125 03/28/2018 [facility] Serum or plasma choriogonadotropin ( test) detection NEGATIVE NEGATIVE 03/28/2018 [facility] Automated blood basophil count (count/volume) Automated blood basophil count (count/volume) 0.0 0.0 - 0.1 03/04/2018 [facility] Automated blood basophil count as percentage of total leukocytes Automated blood basophil count as percentage of total leukocytes 0.6 0.0 - 1.0 03/04/2018 [facility] Automated blood eosinophil count Automated blood eosinophil count 0.1 0.0 - 0.4 03/04/2018 [facility] Automated blood eosinophil count as percentage of total leukocytes Automated blood eosinophil count as percentage of total leukocytes 2.3 0.0 - 6.0 03/04/2018 [facility] Automated blood hematocrit (volume fraction) Automated blood hematocrit (volume fraction) 36.8 34.2 - 44.1 03/04/2018 [facility] Automated blood lymphocyte count as percentage ot total leukocytes Automated blood lymphocyte count as percentage ot total leukocytes 20.3 18.0 - 39.1 03/04/2018 [facility] Automated blood monocyte count as percentage of total leukocytes Automated blood monocyte count as percentage of total leukocytes 6.0 4.4 - 11.3 03/04/2018 [facility] Automated blood neutrophil count Automated blood neutrophil count 4.4 2.1 - 6.9 03/04/2018 [facility] Automated blood platelet count (count/volume) Automated blood platelet count (count/volume) 264 140 - 360 03/04/2018 [facility] Automated blood segmented neutrophil count as percentage of total leukocytes Automated blood segmented neutrophil count as percentage of total leukocytes 70.5 38.7 - 80.0 03/04/2018 [facility] Automated erythrocyte mean corpuscular hemoglobin (mass per erythrocyte) Automated erythrocyte mean corpuscular hemoglobin (mass per erythrocyte) 29.8 28 - 32 03/04/2018 [facility] Automated erythrocyte mean corpuscular hemoglobin concentration measurement (mass/volume) Automated erythrocyte mean corpuscular hemoglobin concentration measurement (mass/volume) 34.0 31 - 35 03/04/2018 [facility] Automated erythrocyte mean corpuscular volume Automated erythrocyte mean corpuscular volume 87.6 81 - 99 03/04/2018 [facility] Automated urine sediment leukocyte count by microscopy (number/high power field) Automated urine sediment leukocyte count by microscopy (number/high power field) NONE 0 - 5 03/04/2018 [facility] Bacteria detection in urine sediment by light microscopy Bacteria detection in urine sediment by light microscopy FEW NONE 03/04/2018 [facility] Blood erythrocytes automated count (number/volume) Blood erythrocytes automated count (number/volume) 4.20 3.6 - 5.1 03/04/2018 [facility] Blood hemoglobin measurement (moles/volume) Blood hemoglobin measurement (moles/volume) 12.5 12.0 - 16.0 03/04/2018 [facility] Blood leukocytes automated count (number/volume) Blood leukocytes automated count (number/volume) 6.21 4.8 - 10.8 03/04/2018 [facility] Blood lymphocytes count (number/volume) Blood lymphocytes count (number/volume) 1.3 1.0 - 3.2 03/04/2018 [facility] Blood monocytes automated count (number/volume) Blood monocytes automated count (number/volume) 0.4 0.2 - 0.8 03/04/2018 [facility] Epithelial cells detection in urine sediment by light microscopy Epithelial cells detection in urine sediment by light microscopy FEW NONE 03/04/2018 [facility] Erythrocytes detection in urine sediment by light microscopy Erythrocytes detection in urine sediment by light microscopy null 0 - 5 03/04/2018 [facility] Estimated glomerular filtration rate (GFR) determination Estimated glomerular filtration rate (GFR) determination null 60 03/04/2018 [facility] Glucose measurement Glucose measurement 122 74 - 118 03/04/2018 [facility] Plasma globulin measurement (mass/volume) Plasma globulin measurement (mass/volume) 3.2 2.3 - 3.5 03/04/2018 [facility] Serum or plasma alanine aminotransferase measurement (enzymatic activity/volume) Serum or plasma alanine aminotransferase measurement (enzymatic activity/volume) 24 0 - 55 03/04/2018 [facility] Serum or plasma albumin measurement (mass/volume) Serum or plasma albumin measurement (mass/volume) 3.5 3.5 - 5.0 03/04/2018 [facility] Serum or plasma albumin/globulin mass ratio Serum or plasma albumin/globulin mass ratio 1.1 0.8 - 2.0 03/04/2018 [facility] Serum or plasma alkaline phosphatase measurement (enzymatic activity/volume) Serum or plasma alkaline phosphatase measurement (enzymatic activity/volume) 107 40 - 150 03/04/2018 [facility] Serum or plasma anion gap Serum or plasma anion gap 15.3 8 - 16 03/04/2018 [facility] Serum or plasma calcium measurement (mass/volume) Serum or plasma calcium measurement (mass/volume) 9.3 8.4 - 10.2 03/04/2018 [facility] Serum or plasma carbon dioxide, total measurement (moles/volume) Serum or plasma carbon dioxide, total measurement (moles/volume) 22 22 - 29 03/04/2018 [facility] Serum or plasma chloride measurement (moles/volume) Serum or plasma chloride measurement (moles/volume) 105 98 - 107 03/04/2018 [facility] Serum or plasma creatinine measurement (mass/volume) Serum or plasma creatinine measurement (mass/volume) 0.99 0.57 - 1.11 03/04/2018 [facility] Serum or plasma lipase measurement (enzymatic activity/volume) Serum or plasma lipase measurement (enzymatic activity/volume) 32 8 - 78 03/04/2018 [facility] Serum or plasma potassium measurement (moles/volume) Serum or plasma potassium measurement (moles/volume) 4.3 3.5 - 5.1 03/04/2018 [facility] Serum or plasma protein measurement (mass/volume) Serum or plasma protein measurement (mass/volume) 6.7 6.5 - 8.1 03/04/2018 [facility] Serum or plasma sodium measurement (moles/volume) Serum or plasma sodium measurement (moles/volume) 138 136 - 145 03/04/2018 [facility] Serum or plasma total bilirubin measurement (mass/volume) Serum or plasma total bilirubin measurement (mass/volume) 0.2 0.2 - 1.2 03/04/2018 [facility] Serum or plasma urea nitrogen measurement (mass/volume) Serum or plasma urea nitrogen measurement (mass/volume) 16 7 - 26 03/04/2018 [facility] Serum or plasma urea nitrogen/creatinine mass ratio Serum or plasma urea nitrogen/creatinine mass ratio 16 6 - 25 03/04/2018 [facility] Specific gravity of Urine by Test strip Specific gravity of Urine by Test strip 1.010 1.010 - 1.025 03/04/2018 [facility] Urine clarity Urine clarity SL CLOUDY CLEAR 03/04/2018 [facility] Urine color determination Urine color determination YELLOW YELLOW 03/04/2018 [facility] Urine erythrocytes detection Urine erythrocytes detection 3+ NEGATIVE 03/04/2018 [facility] Urine glucose detection Urine glucose detection NEGATIVE NEGATIVE 03/04/2018 [facility] Urine ketones detection by automated test strip Urine ketones detection by automated test strip NEGATIVE NEGATIVE 03/04/2018 [facility] Urine leukocyte esterase detection by dipstick Urine leukocyte esterase detection by dipstick NEGATIVE NEGATIVE 03/04/2018 [facility] Urine nitrite detection Urine nitrite detection NEGATIVE NEGATIVE 03/04/2018 [facility] Urine pH measurement by automated test strip Urine pH measurement by automated test strip 6 5 - 7 03/04/2018 [facility] Urine protein measurement by test strip (mass/volume) Urine protein measurement by test strip (mass/volume) NEGATIVE NEGATIVE 03/04/2018 [facility] Urine total bilirubin measurement (mass/volume) Urine total bilirubin measurement (mass/volume) NEGATIVE NEGATIVE 03/04/2018 [facility] Urine urobilinogen measurement by test strip (mass/volume) Urine urobilinogen measurement by test strip (mass/volume) 0.2 0.2 - 1 03/04/2018 [facility] Red Cell Distribution Width 13.8 11.7 - 14.4 03/04/2018 [facility] IM GRANULOCYTES % 0.3 0.0 - 1.0 03/04/2018 [facility] Absolute Immature Granulocyte (auto 0.02 0 - 0.1 03/04/2018 [facility] Aspartate Amino Transf (AST/SGOT) 20 5 - 34 03/04/2018 [facility] Capillary blood glucose measurement by glucometer (mass/volume) 106 70 - 120 02/09/2018 [facility] Capillary blood glucose measurement by glucometer (mass/volume) Capillary blood glucose measurement by glucometer (mass/volume) 106 70 - 120 02/09/2018 [facility] Urine human chorionic gonadotropin (hCG) detection NEGATIVE NEGATIVE 02/09/2018 [facility] Urine human chorionic gonadotropin (hCG) detection Urine human chorionic gonadotropin (hCG) detection NEGATIVE NEGATIVE 02/09/2018 [facility] Serum or plasma creatine kinase measurement (enzymatic activity/volume) 75 29 - 168 01/21/2018 [facility] Serum or plasma creatine kinase MB measurement (mass/volume) 0.40 0 - 5.0 01/21/2018 [facility] Troponin I measurement by highly sensitive enzyme immunoassay < 0.001 0 - 0.300 01/21/2018 [facility] Barbiturates screen, urine Barbiturates screen, urine NEGATIVE NEGATIVE 01/21/2018 [facility] Serum or plasma amylase measurement (enzymatic activity/volume) Serum or plasma amylase measurement (enzymatic activity/volume) 96 25 - 125 01/21/2018 [facility] Serum or plasma choriogonadotropin ( test) detection Serum or plasma choriogonadotropin ( test) detection NEGATIVE NEGATIVE 01/21/2018 [facility] Serum or plasma creatine kinase MB measurement (mass/volume) Serum or plasma creatine kinase MB measurement (mass/volume) 0.40 0 - 5.0 01/21/2018 [facility] Serum or plasma creatine kinase measurement (enzymatic activity/volume) Serum or plasma creatine kinase measurement (enzymatic activity/volume) 75 29 - 168 01/21/2018 [facility] Troponin I measurement by highly sensitive enzyme immunoassay Troponin I measurement by highly sensitive enzyme immunoassay null 0 - 0.300 01/21/2018 [facility] Urine amphetamines detection by screen method > 1000 ng/mL Urine amphetamines detection by screen method > 1000 ng/mL NEGATIVE NEGATIVE 01/21/2018 [facility] Urine benzodiazepines detection by screening method Urine benzodiazepines detection by screening method POSITIVE NEGATIVE 01/21/2018 [facility] Urine cannabinoids detection by screening method Urine cannabinoids detection by screening method POSITIVE NEGATIVE 01/21/2018 [facility] Urine cocaine measurement (mass/volume) Urine cocaine measurement (mass/volume) NEGATIVE NEGATIVE 01/21/2018 [facility] Urine opiates screening test Urine opiates screening test NEGATIVE NEGATIVE 01/21/2018 [facility] Urine phencyclidine detection by screening method Urine phencyclidine detection by screening method NEGATIVE NEGATIVE 01/21/2018 [facility] Urine Methamphetamines Screen NEGATIVE NEGATIVE 01/21/2018 [facility] Mucus detection in urine sediment by light microscopy FEW RARE 10/26/2017 [facility] Mucus detection in urine sediment by light microscopy Mucus detection in urine sediment by light microscopy FEW RARE 10/26/2017 [facility] Serum or plasma conjugated bilirubin measurement (mass/volume) 0.1 0.0 - 0.5 08/21/2017 [facility] Serum or plasma conjugated bilirubin measurement (mass/volume) Serum or plasma conjugated bilirubin measurement (mass/volume) 0.1 0.0 - 0.5 08/21/2017 [facility] Blood culture NO GROWTH AFTER 5 DAYS, FINAL REPORT 08/20/2017 [facility] Blood culture Blood culture NO GROWTH AFTER 5 DAYS, FINAL REPORT 08/20/2017 [facility] Hemoglobin A1c Percent 4.9 4.0 - 7.0 08/20/2017 [facility] Serum or plasma triglyceride measurement (mass/volume) 113 0 - 149 08/20/2017 [facility] Serum or plasma cholesterol measurement (mass/volume) 227 0 - 199 08/20/2017 [facility] Serum or plasma cholesterol in LDL measurement (mass/volume) 141 60 - 130 08/20/2017 [facility] Serum or plasma cholesterol in HDL measurement (mass/volume) 63 40 - 60 08/20/2017 [facility] Serum or plasma total cholesterol/cholesterol in HDL mass ratio 3.6 3.0 - 3.6 08/20/2017 [facility] Serum or plasma cholesterol in HDL measurement (mass/volume) Serum or plasma cholesterol in HDL measurement (mass/volume) 63 40 - 60 08/20/2017 [facility] Serum or plasma cholesterol in LDL measurement (mass/volume) Serum or plasma cholesterol in LDL measurement (mass/volume) 141 60 - 130 08/20/2017 [facility] Serum or plasma cholesterol measurement (mass/volume) Serum or plasma cholesterol measurement (mass/volume) 227 0 - 199 08/20/2017 [facility] Serum or plasma total cholesterol/cholesterol in HDL mass ratio Serum or plasma total cholesterol/cholesterol in HDL mass ratio 3.6 3.0 - 3.6 08/20/2017 [facility] Serum or plasma triglyceride measurement (mass/volume) Serum or plasma triglyceride measurement (mass/volume) 113 0 - 149 08/20/2017 [facility] Transitional cells detection in urine sediment by light microscopy RARE NONE 08/05/2017 [facility] Transitional cells detection in urine sediment by light microscopy Transitional cells detection in urine sediment by light microscopy RARE NONE 08/05/2017 [facility] Bacterial urine culture Organism: KLEBSIELLA PNEUMONIAE 07/03/2017 [facility] Bacterial urine culture Bacterial urine culture Organism: KLEBSIELLA PNEUMONIAE 07/03/2017 [facility] Bacterial urine culture Urine Culture [facility] Vital Signs Vital Sign Value Date Comments Source Diastolic (mm Hg) 67 05/05/2018 [facility] Systolic (mm Hg) 115 05/05/2018 [facility] Height 64.00 05/05/2018 [facility] Heart Rate 73 05/05/2018 [facility] Weight 233.99 05/05/2018 [facility] Diastolic (mm Hg) 66 04/14/2018 [facility] Systolic [...] DC Date Status Source Departed Emergency Room [id number] MARTA BARROW MD 07/03/2017 07/03/2017 [facility] Departed Emergency Room [id number] MADELINE MCKEON MD 07/30/2017 07/30/2017 [facility] Departed Emergency Room [id number] MADELINE GILBERT MD 08/05/2017 08/05/2017 [facility] Discharged Inpatient [id number] NEELIMA TILLEY MD 08/20/2017 08/24/2017 [facility] Departed Emergency Room [id number] COLLETTE MARTINEZ MD 09/09/2017 09/09/2017 [facility] Patient Detailed - [id number] Bogdan Hand MD 09/25/2017 [facility] Est Patient Detailed - 11930 [id number] Bogdan Hand MD 10/21/2017 [facility] Departed Emergency Room [id number] MADELINE GILBERT MD 10/26/2017 10/26/2017 [facility] Departed Emergency Room [id number] CANDE LOUIS MD 11/17/2017 11/17/2017 [facility] Est Patient Detailed - [id number] Bogdan Hand MD 11/20/2017 [facility] Departed Emergency Room [id number] MADELINE GILBERT MD 12/04/2017 12/04/2017 [facility] Est Patient Detailed - [id number] Bogdan Hand MD 12/13/2017 [facility] Est Patient Detailed - 64305 [id number] Bogdan Hand MD 01/15/2018 [facility] Departed Emergency Room [id number] SEEMA TINAJERO MD 01/21/2018 01/21/2018 [facility] Est Patient Detailed - 69032 [id number] Bogdan Hand MD 02/07/2018 [facility] Departed Emergency Room [id number] COLLETTE MARTINEZ MD 02/09/2018 02/09/2018 [facility] Est Patient Exp Problem - [id number] Bogdan Hand MD 02/17/2018 [facility] Departed Emergency Room [id number] SEEMA TINAJERO MD 03/04/2018 03/04/2018 [facility] Est Patient Exp Problem - 48792 [id number] Bogdan Hand MD 03/17/2018 [facility] Departed Emergency Room [id number] DANIAL ÁLVAREZ MD 03/28/2018 03/28/2018 [facility] Departed Emergency Room [id number] EROS SIDHU MD 03/31/2018 03/31/2018 [facility] Departed Emergency Room [id number] EROS SIDHU MD 04/09/2018 04/09/2018 [facility] Patient Detailed - [id number] Bogdan Hand MD 04/14/2018 [facility] Departed Emergency Room [id number] SEEMA TINAJERO MD 04/28/2018 04/28/2018 [facility] - [id number] [id number] Bogdan Hand MD 05/05/2018 [facility] Procedures Procedure Code Date Perfomer Comments Source Computed tomography of abdomen and pelvis with contrast [id number] 03/28/2018 [facility] Computed tomography of abdomen and pelvis with contrast [id number] 03/04/2018 [facility] Computed tomography of chest with contrast [id number] 03/04/2018 [facility] Psychotherapy 45 (38-52*) min - 62078 (with patient and/or family member) 38438 02/26/2018 [facility] 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 [facility] Diagnostic evaluation (no medical) - 00640 50037 02/10/2018 [facility] 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 [facility] Computed tomography of abdomen and pelvis with contrast [id number] 01/21/2018 [facility] Computed tomography of lumbar spine with contrast [id number] 01/21/2018 [facility] Computed tomography of abdomen and pelvis with contrast [id number] 12/04/2017 HUSBY [facility] Computed tomography of abdomen and pelvis with contrast [id number] 11/17/2017 MANEEVESE [facility] Computed tomography of abdomen and pelvis with contrast [id number] 10/26/2017 SHORT [facility] Diagnostic evaluation with medical - 49776 00211 08/31/2017 [facility] Computed tomography of abdomen with contrast [id number] 08/23/2017 JAREK [facility] Computed tomography of abdomen and pelvis with contrast [id number] 08/20/2017 [facility] CT of abdomen and pelvis without contrast [id number] 08/05/2017 [facility] CT of abdomen and pelvis without contrast [id number] 07/30/2017 [facility] CT of abdomen and pelvis without contrast [id number] 07/03/[address] [facility]
--- OUTSIDE RECORDS SUMMARY | 2018-06-03 08:49 | XMS REPORT ---
Author Author Admin, [place] Organization [facility] Address [address] [address] Phone Allergies, Adverse Reactions, Alerts Allergy Name [...] Mouth daily as needed for anxiety CLONAZEPAM 18881296566 Active Bogdan Hand MD Active TRAZODONE HCL 150 MG ORAL TABLET Take one tablet By Mouth at bedtime TRAZODONE HCL 10207949191 Active Bogdan Hand MD Active AMITRIPTYLINE HCL 150 MG ORAL TABLET Take two tablets By Mouth at bedtime AMITRIPTYLINE HCL 84353772138 Active Bogdan Hand MD Active PRAZOSIN HCL 5 MG ORAL CAPSULE Take 3 capsules By Mouth at bedtime PRAZOSIN HCL 96384130071 Active Bogdan Hand MD Active LEXAPRO 20 MG ORAL TABLET Take one tablet By Mouth daily ESCITALOPRAM OXALATE 23530200034 Active Bogdan Hand MD Active VALIUM 10 MG ORAL TABLET Take one tablet By Mouth at bedtime for breakthrough anxiety DIAZEPAM 16466500615 Active Bogdan Hand MD Active DIAZEPAM 5 MG TABS TAKE 1 TABLET BY MOUTH AT BEDTIME NEEDED FOR BREAKTHROUGH ANXIETY DIAZEPAM 66353781894 Active Bogdan Hand MD Active WELLBUTRIN XL 150 MG ORAL TABLET EXTENDED RELEASE 24 HOUR Take one tablet By Mouth daily WELLBUTRIN XL 150 MG ORAL TABLET EXTENDED RELEASE 24 HOUR BUPROPION HCL Inactive LUNESTA 3 MG ORAL TABLET Take one tablet By Mouth at bedtime LUNESTA 3 MG ORAL TABLET 153832 ESZOPICLONE Inactive ZYPREXA 10 MG ORAL TABLET Take one tablet By Mouth daily ZYPREXA 10 MG ORAL TABLET 067984 OLANZAPINE Inactive LUNESTA 3 MG ORAL TABLET Take one tablet at bedtime LUNESTA 3 MG ORAL TABLET 562331 ESZOPICLONE Inactive WELLBUTRIN XL 150 MG ORAL TABLET EXTENDED RELEASE 24 HOUR Take one tablet By Mouth daily BUPROPION HCL 26918511555 No Longer Active Bogdan Hand MD Active LUNESTA 3 MG ORAL TABLET Take one tablet By Mouth at bedtime ESZOPICLONE 98269242559 No Longer Active Bogdan Hand MD Active TEMAZEPAM 30 MG ORAL CAPSULE Take one capsule By Mouth By Mouth at bedtime TEMAZEPAM 80828977399 No Longer Active Bogdan Hand MD Active ZYPREXA 10 MG ORAL TABLET Take one tablet By Mouth daily OLANZAPINE 58572256751 No Longer Active Bogdan Hand MD Active LORAZEPAM 2 MG ORAL TABLET Take one tablet By Mouth TID as needed for anxiety LORAZEPAM 91773687757 No Longer Active Bogdan Hand MD Active LUNESTA 3 MG ORAL TABLET Take one tablet at bedtime ESZOPICLONE 52056309509 No Longer Active Bogdan Hand MD Active Vital Signs Date Name Value Unit Range Description blood pressure, diastolic - 8462-4 67 mm[Hg] BP siddiqui blood pressure, systolic - 8480-6 115 mm[Hg] BP sys height E&M - 8302-2 64.00 [in_us] Bdy height pulse rate E&M - 8867-4 73 /min Heart rate weight E&M - 3141-9 233.99 [lb_av] Weight Measured blood pressure, diastolic - [...] pressure, diastolic - 8462-4 66 mm[Hg] BP siddiuqi blood pressure, systolic - 8480-6 95 mm[Hg] [...] Measured Encounters Date Encounter Provider Code 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 Patient Detailed - [id number] Bogdan Hand MD CPT-14611 [facility] 11:34:27 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 Patient Detailed - 22114 Bogdan Hand MD CPT-48556 [facility] 10:47:07 CDT Est Patient Exp Problem - 05911 Bogdan Hand MD CPT-30047 [facility] 08:46:49 CDT Est Patient Exp Problem - 83979 Bogdan Hand MD CPT-27741 [facility] 08:33:08 CDT Est Patient Detailed - 87315 Bogdan Hand MD CPT-26140 [facility] 08:31:14 CDT Est Patient Detailed - 75113 Bogdan Hand MD CPT-43738 [facility] 13:41:13 CDT Est Patient Detailed - 60225 Bogdan Hand MD CPT-63008 [facility] 19:16:18 CDT Est Patient Detailed - 68358 Bogdan Hand MD CPT-40805 [facility] 09:08:54 CDT Est Patient Detailed - 64688 Bogdan Hand MD CPT-56097 [facility] 08:21:45 CDT Est Patient Detailed - 80493 Bogdan Hand MD CPT-03246 [facility] Procedures Code Procedure Name Date Entry Date Standard Description CPT-66389 Psychotherapy 45 (38-52*) min - 91989 (with patient and/or family member) 13:05:22 CDT CPT-83173 Diagnostic evaluation (no medical) - 74118 10:06:21 CDT CPT-00246 Diagnostic evaluation with medical - 13501 20:46:14 CDT
--- OUTSIDE RECORDS SUMMARY | 2018-06-03 08:49 | XMS REPORT ---
Author Author Admin, [place] Organization [facility] Address [address] [address] Phone Allergies, Adverse Reactions, Alerts Allergy Name [...] Mouth daily as needed for anxiety CLONAZEPAM 68510046564 Active Bogdan Hand MD Active TRAZODONE HCL 150 MG ORAL TABLET Take one tablet By Mouth at bedtime TRAZODONE HCL 90821561035 Active Bogdan Hand MD Active AMITRIPTYLINE HCL 150 MG ORAL TABLET Take two tablets By Mouth at bedtime AMITRIPTYLINE HCL 82149755350 Active Bogdan Hand MD Active PRAZOSIN HCL 5 MG ORAL CAPSULE Take 3 capsules By Mouth at bedtime PRAZOSIN HCL 45166656003 Active Bogdan Hand MD Active LEXAPRO 20 MG ORAL TABLET Take one tablet By Mouth daily ESCITALOPRAM OXALATE 57131507688 Active Bogdan Hand MD Active VALIUM 10 MG ORAL TABLET Take one tablet By Mouth at bedtime for breakthrough anxiety DIAZEPAM 53904168558 Active Bogdan Hand MD Active DIAZEPAM 5 MG TABS TAKE 1 TABLET BY MOUTH AT BEDTIME NEEDED FOR BREAKTHROUGH ANXIETY DIAZEPAM 16485880172 Active Bogdan Hand MD Active WELLBUTRIN XL 150 MG ORAL TABLET EXTENDED RELEASE 24 HOUR Take one tablet By Mouth daily WELLBUTRIN XL 150 MG ORAL TABLET EXTENDED RELEASE 24 HOUR BUPROPION HCL Inactive LUNESTA 3 MG ORAL TABLET Take one tablet By Mouth at bedtime LUNESTA 3 MG ORAL TABLET 783407 ESZOPICLONE Inactive ZYPREXA 10 MG ORAL TABLET Take one tablet By Mouth daily ZYPREXA 10 MG ORAL TABLET 155850 OLANZAPINE Inactive LUNESTA 3 MG ORAL TABLET Take one tablet at bedtime LUNESTA 3 MG ORAL TABLET 176113 ESZOPICLONE Inactive WELLBUTRIN XL 150 MG ORAL TABLET EXTENDED RELEASE 24 HOUR Take one tablet By Mouth daily BUPROPION HCL 13958845036 No Longer Active Bogdan Hand MD Active LUNESTA 3 MG ORAL TABLET Take one tablet By Mouth at bedtime ESZOPICLONE 82801417098 No Longer Active Bogdan Hand MD Active TEMAZEPAM 30 MG ORAL CAPSULE Take one capsule By Mouth By Mouth at bedtime TEMAZEPAM 83226233447 No Longer Active Bogdan Hand MD Active ZYPREXA 10 MG ORAL TABLET Take one tablet By Mouth daily OLANZAPINE 44745127930 No Longer Active Bogdan Hand MD Active LORAZEPAM 2 MG ORAL TABLET Take one tablet By Mouth TID as needed for anxiety LORAZEPAM 07612943248 No Longer Active Bogdan Hand MD Active LUNESTA 3 MG ORAL TABLET Take one tablet at bedtime ESZOPICLONE 85464716676 No Longer Active Bogdan Hand MD Active Vital Signs Date Name Value Unit Range Description blood pressure, diastolic 67 mm[Hg] BP siddiqui blood pressure, systolic 115 mm[Hg] BP sys height E&M 64.00 [in_us] Bdy height pulse rate E&M 73 /min Heart rate weight E&M 233.99 [lb_av] Weight Measured blood pressure, diastolic 66 [...] Encounters Date Encounter Provider Code 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 - [id number] Bogdan Hand MD CPT-82657 [facility] 11:34:27 MACHINE HOSTLER Est Patient Detailed - 02753 Bogdan Hand MD CPT-94040 [facility] 10:47:07 CDT Est Patient Exp Problem - 17631 Bogdan Hand MD CPT-16834 [facility] 08:46:49 CDT Est Patient Exp Problem - 98306 Bogdan Hand MD CPT-71502 [facility] 08:33:08 CDT Est Patient Detailed - 56931 Bogdan Hand MD CPT-40853 [facility] 08:31:14 CDT Est Patient Detailed - 32285 Bogdan Hand MD CPT-29873 [facility] 13:41:13 CDT Est Patient Detailed - 07669 Bogdan Hand MD CPT-42661 [facility] 19:16:18 CDT Est Patient Detailed - 74473 Bogdan Hand MD CPT-94721 [facility] 09:08:54 CDT Est Patient Detailed - 89819 Bogdan Hand MD CPT-67755 [facility] 08:21:45 CDT Est Patient Detailed - 80187 Bogdan Hand MD CPT-59142 [facility] Procedures Code Procedure Name Date Entry Date Standard Description CPT-04002 Psychotherapy 45 (38-52*) min - 97292 (with patient and/or family member) 13:05:22 CDT CPT-18629 Diagnostic evaluation (no medical) - 71101 10:06:21 CDT CPT-06501 Diagnostic evaluation with medical - 84463 20:46:14 CDT
[2018-06-03 09:10] LABS: BILIRUBIN,URINE NEGATIVE (NEGATIVE); CLARITY,URINE SL CLOUDY (CLEAR); COLOR,URINE YELLOW (YELLOW); KETONES,URINE NEGATIVE (NEGATIVE); LEUKOCYTE ESTERASE ,URINE TRACE (NEGATIVE); NITRITE,URINE NEGATIVE (NEGATIVE); PREGNANCY TEST, URINE NEGATIVE (NEGATIVE); PROTEIN,URINE DIPSTICK NEGATIVE (NEGATIVE); URINE UROBILINOGEN 0.2 mg/dL (0.2 - 1)
[2018-06-03] MEDS ORDERED: SODIUM CHLORIDE 0.9% 1000ML 1,000 ML IV STA (09:10)
[2018-06-03] MEDS ORDERED: ONDANSETRON HCL INJ 2 MG/ML VIAL IV STA (09:10)
[2018-06-03] MEDS ORDERED: KETOROLAC TROMETHAMINE 30 MG/ML VIAL IV STA (09:10)
[2018-06-03] MEDS ORDERED: AMITRIPTYLINE150 MG PO (09:12)
[2018-06-03] MEDS ORDERED: DIAZEPAM10 MG PO (09:12)
[2018-06-03 09:22] LABS: BACTERIA,URINE MODERATE /HPF; EPITHELIAL CELLS,URINE RARE /LPF; WBC,URINE (MAN) 0-5 /HPF (0-5)
[2018-06-03 09:36] LABS: BASOPHILS % 0.7 % (0.0-1.0); EOSINOPHILS # (AUTO) 0.1 (0.0-0.4); EOSINOPHILS % 1.5 % (0.0-6.0); HEMATOCRIT 36.6 % (34.2-44.1); HEMOGLOBIN 12.5 g/dL (12.0-16.0); LYMPHOCYTES # (AUTO) 1.5 (1.0-3.2); LYMPHOCYTES % 26.9 % (18.0-39.1); MEAN CORPUSCULAR HEMOGLOBIN 29.7 pg (28-32); MEAN CORPUSCULAR HGB CONC 34.2 g/dL (31-35); MEAN CORPUSCULAR VOLUME 86.9 fL (81-99); MONOCYTES # (AUTO) 0.3 (0.2-0.8); MONOCYTES % 5.2 % (4.4-11.3); NEUTROPHILS # (AUTO) 3.5 (2.1-6.9); NEUTROPHILS % 65.3 % (38.7-80.0); PLATELET COUNT 237 x10e3/uL (140-360); RED BLOOD COUNT 4.21 x10e6/uL (3.6-5.1); RED CELL DISTRIBUTION WIDTH 13.3 % (11.7-14.4)
[2018-06-03 10:02] LABS: ALANINE AMINOTRANSFERASE 19 IU/L (0-55); ALBUMIN 3.5 g/dL (3.5-5.0); ALBUMIN/GLOBULIN RATIO 1.3 (0.8-2.0); ALKALINE PHOSPHATASE 84 IU/L (40-150); ANION GAP 10.7 mmol/L (8-16); BLOOD UREA NITROGEN 10 mg/dL (7-26); BUN/CREATININE RATIO 12 (6-25); CALCIUM 8.9 mg/dL (8.4-10.2); CARBON DIOXIDE 24 mmol/L (22-29); CHLORIDE 103 mmol/L (98-107); CREATININE, SERUM 0.82 mg/dL (0.57-1.11); EST GLOMERULAR FILTRATION RATE > 60 ML/MIN (60-); GLUCOSE 96 mg/dL (74-118); MAGNESIUM 1.9 MG/DL (1.3-2.1); POTASSIUM 3.7 mmol/L (3.5-5.1); SODIUM 134 mmol/L (136-145)
--- NOTE | 2018-06-03 11:40 | Diagnostic Imaging Report ---
EXAM: CT Abdomen and Pelvis WITHOUT contrast INDICATION: Renal stone. COMPARISON: CT Abdomen/Pelvis 03/28/18. TECHNIQUE: Abdomen and pelvis were scanned utilizing a multidetector helical scanner from the lung base to the pubic symphysis without administration of IV contrast. Absence of intravenous contrast decreases sensitivity for detection of focal lesions and vascular pathology. Coronal and sagittal reformations were obtained. Routine protocol was performed. IV CONTRAST: None. ORAL CONTRAST: Water RADIATION DOSE: Total DLP:861 mGy*cm Dose modulation, iterative reconstruction, and/or weight based adjustment of the mA/kV was utilized to reduce the radiation dose to as low as reasonably achievable. FINDINGS: LINES and TUBES: None. LOWER THORAX: Patchy dependent atelectasis. HEPATOBILIARY: Diffuse fatty liver. No focal hepatic lesions. No biliary ductal dilation. Status post cholecystectomy. SPLEEN: No splenomegaly. PANCREAS: No focal masses or ductal dilatation. ADRENALS: No adrenal nodules KIDNEYS/URETERS: No hydronephrosis. No cystic or solid mass lesions. Punctate 2 mm right mid pole renal stone. 4 mm left mid pole renal stone. Two 2 mm left lower pole renal stones. GI TRACT: No abnormal distention, wall thickening, or evidence of bowel obstruction. Appendix is normal. PELVIC ORGANS/BLADDER: Status post hysterectomy. The bladder is unremarkable in appearance. LYMPH NODES: No lymphadenopathy. VESSELS: Unremarkable. PERITONEUM / RETROPERITONEUM: No free air. Trace pelvic free fluid. BONES/SOFT TISSUES: No acute bony findings. Stable postoperative appearance of the anterior abdominal wall mesh repair. No evidence of recurrent hernia. IMPRESSION: Bilateral nonobstructing renal stones, measuring up to 4 mm in the left mid pole. Hepatic steatosis. Stable postoperative appearance of the abdominal wall without evidence of recurrent hernia. Signed by: Dr. Evaristo Christina MD on 06/03/2018 11:36 AM
== END 2018-06-03 12:30 | disposition home or self-care (01) ==
LOC: ER 08:45
DX: M54.5 Low back pain (principal); R11.0 Nausea; S39.012A Strain of muscle, fascia and tendon of lower back, initial encounter; F41.9 Anxiety disorder, unspecified; F17.210 Nicotine dependence, cigarettes, uncomplicated
CPT/HCPCS: 36415; 74176; 80053; 81001; 81025; 83735; 85025; 87086; 87186; 99284; J1885; J2405; J7030

== ENCOUNTER 2018-06-15 08:19 | Emergency (ER) | payer OTHER ==
[~2018-06-15] VITALS: Ht 162.6 cm; Wt 99.8 kg
[~2018-06-15 08:19] MED LIST changes: +AMITRIPTYLINE150 MG PO; +DIAZEPAM10 MG PO
--- OUTSIDE RECORDS SUMMARY | 2018-06-15 08:21 | XMS REPORT | Clinical Summary ---
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 Role Phone Sharpless PCP Unavailable Allergies [...] Mild dehydration 10/25/2017 Emergency Emergency Medicine after 06/14/2017 Social History Date Tobacco Use Types Packs/Day [...] CULTURE STAT 10/25/2017 8:37 AM CDT after 06/14/2017 Results * CT abdomen pelvis with IV contrast (10/25/2017 10:19 AM CDT) Narrative Performed At FINAL REPORT [facility] CT of the abdomen and pelvis, [...] MD Report Verified Date/Time:10/25/2017 10:25:23 Reading Location: [facility]013 Ortho Consult Reading Room Procedure [...] Report Verified Date/Time: 10/25/2017 10:25:23 Reading Location: [facility] [id number] Ortho Consult Reading Room Performing Organization Address City/State/Zipcode Phone Number [facility] * Urinalysis w/Microscopic + Reflex to Culture (10/25/2017 8:37 AM CDT) Color, UA Light Yellow [facility] Clarity, UA Clear [facility] Specific [place], UA 1.005 1.001 - 1.035 [facility] pH, UA 6.0 5.0 - 8.0 [facility] Protein, UA Negative Negative [facility] Glucose, UA Negative Negative [facility] Ketones, UA Negative Negative [facility] Bilirubin, UA Negative Negative [facility] Blood, UA Negative Negative [facility] Nitrite, UA Negative Negative [facility] Leukocytes, UA Negative Negative [facility] Urobilinogen, UA 0.2 0.2 - 1.0 mg/dL [facility] RBC, UA <1 /HPF [facility] WBC, UA 6 /HPF [facility] Bacteria, UA Rare [facility] Mucus Rare [facility] Squam Epithel, UA 3 /HPF [facility] Amorphous Crystals Rare [facility] Specimen Source [facility] Specimen Urine - Urine, Clean Catch Performing Organization Address City/State/Zipcode Phone Number [facility] [address] [place] [address] [facility] * CBC with platelet count + automated diff (10/25/2017 8:37 AM CDT) WBC 6.2 3.5 - 10.5 K/L [facility] RBC 4.48 3.93 - 5.22 M/L [facility] Hemoglobin 12.7 11.2 - 15.7 GM/DL [facility] Hematocrit 39.5 34.1 - 44.9 % [facility] MCV 88.2 79.4 - 94.8 fL [facility] MCH 28.3 25.6 - 32.2 pg [facility] MCHC 32.2 32.2 - 35.5 GM/DL [facility] RDW 13.9 11.7 - 14.4 % [facility] Platelets 259 150 - 450 K/CU MM [facility] MPV 9.6 9.4 - 12.3 fL [facility] nRBC 0 0 - 0 /100 WBC [facility] % Neutros 67 % [facility] % Lymphs 25 % [facility] % Monos 6 % [facility] % Eos 2 % [facility] % Baso 0 % [facility] # Neutros 4.15 1.56 - 6.13 K/L [facility] # Lymphs 1.52 1.18 - 3.74 K/L [facility] # Monos 0.38 (H) 0.24 - 0.36 K/L [facility] # Eos 0.09 0.04 - 0.36 K/L [facility] # Baso 0.02 0.01 - 0.08 K/L [facility] Immature 1 0 - 1 % [facility] Granulocytes-[facility] Specimen Blood Performing Organization Address City/State/Zipcode Phone Number [facility] [address] [place] [address] MED[facility] * Urine culture (10/25/2017 8:37 AM CDT) Result ESCHERICHIA COLI (A) [facility] Specimen Urine - Urine, Clean Catch Narrative Performed At 10-19,000 col/mL skin ronaldo [facility] Antibiotic Method Susceptibility Organism Amikacin <=2: Susceptible [...] <=20: Susceptible Escherichia coli Performing Organization Address [facility] Phone Number [address] * Lipase (10/25/2017 8:37 AM CDT) Lipase 40 8 - 78 U/L [facility] Specimen Blood Performing Organization Address [facility] Phone Number [address] * Comprehensive metabolic panel (10/25/2017 8:37 AM CDT) Protein, Total 6.3 6.0 - 8.3 gm/dL [facility] Albumin 3.9 3.5 - 5.0 g/dL [facility] Alkaline Phosphatase 80 40 - 150 U/L [facility] Total Bilirubin 0.2 0.2 - 1.2 mg/dL [facility] Sodium 142 136 - 145 meq/L [facility] Potassium 3.8 3.5 - 5.1 meq/L [facility] Chloride 111 (H) 98 - 107 meq/L [facility] CO2 23 22 - 29 meq/L [facility] BUN 14 7 - 21 mg/dL [facility] Creatinine 0.80 0.57 - 1.25 mg/dL [facility] Glucose 126 (H) 70 - 105 mg/dL [facility] Calcium 8.8 8.4 - 10.2 mg/dL [facility] AST 14 5 - 34 U/L [facility] ALT 21 6 - 55 U/L [facility] EGFR 80Comment: ESTIMATED GFR IS mL/min/1.73 sq m [facility] NOT ACCURATE CREATININE [facility] CLEARANCE IN PREDICTING GLOMERULAR FILTRATION RATE. ESTIMATED GFR IS NOT APPLICABLE FOR DIALYSIS PATIENTS. Specimen Blood Performing Organization Address City/State/Zipcode Phone Number [facility] [address] [place] [address] [facility] after 06/14/2017 Insurance Payer Benefit Subscriber ID Type Phone Address Plan / Group MEDICAID - MEDICAID MGD MEDICAID xxxxxxxxx Medicaid [employer] Non-Contra cted
--- OUTSIDE RECORDS SUMMARY | 2018-06-15 08:21 | XMS REPORT | Clinical Summary ---
Author Author [employer] Organization [employer] Address Unknown Phone Unavailable Care Team Providers Care Quality Assurance Associate Name Role Phone Asked, No Pcp [...] (Primary Dx) 03/05/2018 Emergency Emergency Medicine after 06/14/2017 Social History [...] 12-LEAD STAT 03/05/2018 9:02 AM CDT after 06/14/2017 Results * Lactic acid level, SEPSIS - Now and repeat 2x every 3 hours (03/05/2018 1:15 PM CDT) Only the most recent of 2 results within the time period is included. Lactic acid 1.4 0.5 - 2.2 mmol/L [facility] DEPARTMENT OF PATHOLOGY AND GENOMIC MEDICINE Specimen Blood Performing Organization Address City/State/Zipcode Phone Number [facility] DEPARTMENT OF [address] [place] [address] PATHOLOGY AND GENOMIC MEDICINE * CT Chest [...] No fluid collections. IMPRESSION: No acute abnormality. [id number] Procedure Note Hm Interface, Radiology Results Incoming [...] No fluid collections. IMPRESSION: No acute abnormality. [id number] Performing Organization Address [facility]/[place] [address] * Estimated GFR (03/05/2018 10:15 AM CDT) Estimated GFR 87 mL/min/1.[address] [facility] DEPARTMENT OF Comment: PATHOLOGY AND [employer] GENOMIC MEDICINE rpretation G1 >=90 Normal or high G2 60-89Mildly decreased [id number] Mildly to moderately decreased [id number] Moderately to severely decreased G4 15-29Severely decreased G5 <15Kidney failure The eGFR was calculated using the Chronic Kidney Disease Epidemiology Collaboration (CKD-EPI) equation. Interpretation is based on recommendations of the National Kidney Foundation-Kidney Disease Outcomes Quality Initiative (NKF-KDOQI) published in 2014. Specimen Plasma specimen Performing Organization Address [facility] [address] PATHOLOGY AND GENOMIC MEDICINE * Troponin (03/05/2018 10:15 AM CDT) Troponin <0.30 0.00 - 0.30 ng/mL [facility] DEPARTMENT OF Comment: PATHOLOGY AND 0.30 - 1.49 GENOMIC MEDICINE ng/mlMay indicate increased risk of acute coronary syndrome. >=1.5 ng/ml Consistent with acute myocardial infarction. The diagnostic value of a single normal or non-diagnostic result is questionable.Serial samples at 2-6 hour intervals are required to rule out acute myocardial injury. Specimen Plasma specimen Performing Organization Address [facility] [address] PATHOLOGY AND [employer] [facility]ICINE * Partial thromboplastin time, activated (03/05/2018 10:15 AM CDT) PTT 29.9 23.0 - 36.[address] [facility] DEPARTMENT OF Comment: PATHOLOGY AND PTT therapeutic range for GENOMIC MEDICINE unfractionated heparin is 61.0-112.0 seconds which corresponds to Anti-Xa 0.3-0.7 U/ml. Specimen Blood Performing Organization Address [facility]/[place] [address] PATHOLOGY AND [employer] MEDICINE * Prothrombin time with INR (03/05/2018 10:15 AM CDT) Prothrombin time 14.1 12.0 - 15.[address] [facility] DEPARTMENT OF PATHOLOGY AND GENOMIC MEDICINE INR 1.1 [facility] DEPARTMENT OF Comment: PATHOLOGY AND The International Normalized GENOMIC MEDICINE Ratio (INR) is a therapeutic monitoring tool for patients who are stable on oral anticoagulant therapy. An INR of 2.0-3.0 is suggested for deep vein thrombosis/pulmonary embolism. Specimen Blood Performing Organization Address [facility] [address] PATHOLOGY AND GENOMIC MEDICINE * D-dimer (03/05/2018 10:15 AM CDT) D-dimer 0.92 (H) 0.00 - 0.40 ug/mL FEU [facility] DEPARTMENT OF Comment: PATHOLOGY AND Units [...] and malignancies. Specimen Blood Performing Organization Address City/[facility] Phone Number [address] [address] PATHOLOGY AND [employer] MEDICINE * CBC with platelet and differential (03/05/2018 10:15 AM CDT) WBC 6.28 4.50 - 11.00 k/uL [facility] DEPARTMENT OF PATHOLOGY AND GENOMIC MEDICINE RBC 3.96 (L) 4.20 - 5.50 m/uL [facility] DEPARTMENT OF PATHOLOGY AND GENOMIC MEDICINE HGB 11.5 (L) 12.0 - 16.0 g/dL [facility] DEPARTMENT OF PATHOLOGY AND GENOMIC MEDICINE HCT 35.4 (L) 37.0 - 47.0 % [facility] DEPARTMENT OF PATHOLOGY AND GENOMIC MEDICINE MCV 89.4 82.0 - 100.[address] [facility] DEPARTMENT OF PATHOLOGY AND GENOMIC MEDICINE MCH 29.0 27.0 - 34.[address] [facility] DEPARTMENT OF PATHOLOGY AND GENOMIC MEDICINE MCHC 32.5 31.0 - 37.0 g/dL [facility] DEPARTMENT OF PATHOLOGY AND GENOMIC MEDICINE RDW - SD 45.1 37.0 - 55.[address] [facility] DEPARTMENT OF PATHOLOGY AND GENOMIC MEDICINE MPV 8.9 8.8 - 13.[address] [facility] DEPARTMENT OF PATHOLOGY AND GENOMIC MEDICINE Platelet count 241 150 - 400 k/uL [facility] DEPARTMENT OF PATHOLOGY AND GENOMIC MEDICINE Nucleated RBC 0.00 /[address] [facility] DEPARTMENT OF PATHOLOGY AND GENOMIC MEDICINE Neutrophils 66.0 39.0 - 69.0 % [facility] DEPARTMENT OF PATHOLOGY AND GENOMIC MEDICINE Lymphocytes 24.8 (L) 25.0 - 45.0 % [facility] DEPARTMENT OF PATHOLOGY AND GENOMIC MEDICINE Monocytes 6.1 0.0 - 10.0 % [facility] DEPARTMENT OF PATHOLOGY AND GENOMIC MEDICINE Eosinophils 2.2 0.0 - 5.0 % [facility] DEPARTMENT OF PATHOLOGY AND GENOMIC MEDICINE Basophils 0.6 0.0 - 1.0 % [facility] DEPARTMENT OF PATHOLOGY AND GENOMIC MEDICINE Immature granulocytes 0.3Comment: "Immature 0.0 - 1.0 % [facility] DEPARTMENT OF granulocytes" (promyelocytes, PATHOLOGY AND myelocytes, metamyelocytes) GENOMIC MEDICINE Specimen Blood Performing Organization Address City/[facility] Phone Number [facility] [place] [address] PATHOLOGY AND GENOMIC MEDICINE * Type and screen (03/05/2018 10:15 AM CDT) ABO grouping O [facility] DEPARTMENT OF PATHOLOGY AND GENOMIC MEDICINE Rh type POS [facility] DEPARTMENT OF PATHOLOGY AND GENOMIC MEDICINE Antibody screen (gel) NEG [facility] DEPARTMENT OF PATHOLOGY AND GENOMIC MEDICINE Specimen Blood Performing Organization Address [facility] Cent[facility] Phone Number [facility] [place] [address] PATHOLOGY AND GENOMIC MEDICINE * B natriuretic peptide (03/05/2018 10:15 AM CDT) BNP 11 0 - 100 pg/mL [facility] DEPARTMENT OF PATHOLOGY AND GENOMIC MEDICINE Specimen Blood Performing Organization Address City/[facility]/Zipcode Phone Number [facility] [place] [address] PATHOLOGY AND [facility] MEDICINE * Lipase level (03/05/2018 10:15 AM CDT) Lipase 20 13 - 60 U/L [facility] DEPARTMENT OF PATHOLOGY AND GENOMIC MEDICINE Specimen Plasma specimen Performing Organization Address City/[facility]/Zipcode Phone Number [facility] [place] [address] PATHOLOGY AND GENOMIC MEDICINE * Basic metabolic panel (03/05/2018 10:15 AM CDT) Sodium 141 135 - 148 mEq/L [facility] DEPARTMENT OF PATHOLOGY AND GENOMIC MEDICINE Potassium 4.5 3.5 - 5.0 mEq/L [facility] DEPARTMENT OF PATHOLOGY AND GENOMIC MEDICINE Chloride 103 98 - 112 mEq/L [facility] DEPARTMENT OF PATHOLOGY AND GENOMIC MEDICINE CO2 27 24 - 31 mEq/L [facility] DEPARTMENT OF PATHOLOGY AND GENOMIC MEDICINE Anion gap 11@ANIO 7 - 15 mEq/L [facility] DEPARTMENT OF PATHOLOGY AND GENOMIC MEDICINE BUN 10 6 - 20 mg/dL [facility] DEPARTMENT OF PATHOLOGY AND GENOMIC MEDICINE Creatinine 0.84 0.50 - 0.90 mg/dL [facility] DEPARTMENT OF PATHOLOGY AND GENOMIC MEDICINE Glucose 85 65 - 99 mg/dL [facility] DEPARTMENT OF PATHOLOGY AND GENOMIC MEDICINE Calcium 8.3 8.3 - 10.2 mg/dL [facility] DEPARTMENT OF PATHOLOGY AND GENOMIC MEDICINE Specimen Plasma specimen Performing Organization Address City/[facility] [place] [address] PATHOLOGY AND GENOMIC MEDICINE * XR Chest 1 Vw (03/05/2018 10:02 AM CDT) Narrative Performed At EXAM: RADIANT XR CHEST 1 VW INDICATION: Chest painACS suspected COMPARISON: None. IMPRESSION: Surgical clips right upper quadrant. Minimal linear opacity lateral aspect left lower lung, discoid atelectasis versus scar/fibrosis. No consolidation, pleural effusion, pneumothorax. Heart size is normal. Minimal degenerative changes thoracic spine. [facility]-[id number] Procedure Note Interface, Radiology Results Incoming - 03/05/2018 10:06 AM CDT EXAM: XR CHEST 1 VW INDICATION: Chest pain ACS suspected COMPARISON: None. IMPRESSION: Surgical clips right upper quadrant. Minimal linear opacity lateral aspect left lower lung, discoid atelectasis versus scar/fibrosis. No consolidation, pleural effusion, pneumothorax. Heart size is normal. Minimal degenerative changes thoracic spine. [facility]-[id number] Performing Organization Address City/[facility] Cent[facility]ode Phone Number [facility] [address] [place] [address] * XR Abdomen 1 Vw (03/05/2018 10:02 [...] are seen in the right upper quadrant. [id number] Procedure Note Hm Interface, Radiology Results Incoming [...] are seen in the right upper quadrant. [id number] Performing Organization Address [facility] Phone Number [facility] [address] [place] [address] * ECG 12 lead (03/05/2018 9:02 AM CDT) Ventricular rate 94 [facility] Atrial rate 94 [facility] TN interval 194 [facility] QRSD interval 128 [facility] QT interval 388 [facility] QTC interval 485 [facility] P axis 1 50 [facility] QRS axis 1 22 [facility] T wave axis 48 [facility] EKG impression Normal sinus [facility] rhythm-Nonspecific intraventricular block-Abnormal ECG-No previous ECGs available- Performing Organization Address City/[facility] Phone Number [facility] [address] [place] [address] after 06/14/2017 Insurance Payer Benefit Subscriber ID Type Phone Address Plan / Group [employer] xxxxxxxx HMO [employer]RICK Advance Directives Patient has advance care planning documents on file. For more information, ivan rousseau contact: Jai Zee [address] [place] [address]
--- OUTSIDE RECORDS SUMMARY | 2018-06-15 08:22 | XMS REPORT | Continuity of Care Document ---
Author Author [facility] Interface Address Unknown Phone Unavailable Problems Problem Status Onset Date Classification Date Reported Comments Source DEPRESSIVE DISORDER, MAJOR, RECURRENT EPISODE, W/ PSYCHOTIC FEATURES Active 10/21/2017 Diagnosis 06/09/2018 [facility] PTSD Active 08/28/2017 Diagnosis 06/09/2018 [facility] PANIC DISORDER Active 08/28/2017 Diagnosis 06/09/2018 [facility] INSOMNIA DISORDER, PERSISTENT Active 08/28/2017 Diagnosis 06/09/2018 [facility] Pancreatitis, acute Active Problem 06/03/2018 [facility] Medications Medication Details Route Status Patient Instructions [...] Tablet Daily for 10 Active [facility] 03/04/2018 [facility] Levofloxacin (Levaquin) 500 Mg Tablet, 500 Mg Oral Daily for 10 Active [facility] 03/04/2018 [facility] Levofloxacin (Levaquin) 500 Mg Tablet Daily for 10 Active [facility] 03/04/2018 [facility] Cephalexin Monohydrate (Keflex) 500 Mg Capsule Every 6 Hours Active [facility] 01/21/2018 [facility] Prednisone 20 Mg Tab Daily Active [facility] 01/21/2018 [facility] Cephalexin Monohydrate (Keflex) 500 Mg Capsule, 500 Mg Oral Every 6 Hours Active [facility] 01/21/2018 [facility] Prednisone 20 Mg Tab, 40 Mg Oral Daily Active [facility] 01/21/2018 [facility] Cephalexin Monohydrate (Keflex) 500 Mg Capsule Every 6 Hours Active [facility] 01/21/2018 [facility] Prednisone 20 Mg Tab Daily Active [facility] 01/21/2018 [facility] WELLBUTRIN XL 150 MG ORAL TABLET EXTENDED [...] 8 Hours as needed for Pain Active [facility] 08/24/2017 [facility] Cyclobenzaprine Hcl 10 Mg Tablet, 5 Mg Oral Three Times A Day Active [facility] 08/24/2017 [facility] Ondansetron (Zofran Odt) 4 Mg Tab.rapdis, 4 Mg Oral Q4- 6H Prn Active [facility] 08/24/2017 [facility] Polyethylene Glycol 3350 (Miralax) 17 Gm Powd.pack, 17 Gm Oral Twice A Day Active [facility] 08/24/2017 [facility] Senna Fruit/Conc/Doc Sod/Bisa 1 Ea Tab, 2 Ea Oral Bedtime Active [facility] 08/24/2017 [facility] Acetaminophen With Codeine (Tylenol With Codeine #3 Tablet) 1 Each Tablet, 300 Mg Oral Every 8 Hours as needed for Pain Active [facility] 08/24/2017 [facility] Cyclobenzaprine Hcl 10 Mg Tablet, 5 Mg Oral Three Times A Day Active [facility] 08/24/2017 [facility] Ondansetron (Zofran Odt) 4 Mg Tab.rapdis, 4 Mg Oral Q4- 6H Prn Active [facility] 08/24/2017 [facility] Polyethylene Glycol 3350 (Miralax) 17 Gm Powd.pack, 17 Gm Oral Twice A Day Active [facility] 08/24/2017 [facility] Amitriptyline Hcl 150 Mg Tablet Bedtime Active [facility] Diazepam 10 Mg Tablet Bedtime Active [facility] DIAZEPAM TAKE 1 TABLET BY MOUTH AT BEDTIME NEEDED FOR BREAKTHROUGH ANXIETY Active TAKE 1 TABLET BY MOUTH AT BEDTIME NEEDED FOR BREAKTHROUGH ANXIETY [facility] Allergies, Adverse Reactions, Alerts Substance Category Reaction Severity Reaction type Status Date Reported Comments Source Tramadol Unknown Allergy to Substance Active 04/28/2018 [facility] Codeine Mild Allergy to Substance Active 06/03/2018 [facility] Immunizations Immunization Date Given Site Status Last Updated Comments Source Results Order Name Results Value Reference Range Date Interpretation Comments Source Blood leukocytes automated count (number/volume) 5.42 4.8 - 10.8 06/03/2018 [facility] Blood erythrocytes automated count (number/volume) 4.21 3.6 - 5.1 06/03/2018 [facility] Blood hemoglobin measurement (moles/volume) 12.5 12.0 - 16.0 06/03/2018 [facility] Automated blood hematocrit (volume fraction) 36.6 34.2 - 44.1 06/03/2018 [facility] Automated erythrocyte mean corpuscular volume 86.9 81 - 99 06/03/2018 [facility] Automated erythrocyte mean corpuscular hemoglobin (mass per erythrocyte) 29.7 28 - 32 06/03/2018 [facility] Automated erythrocyte mean corpuscular hemoglobin concentration measurement (mass/volume) 34.2 31 - 35 06/03/2018 [facility] RDW BldCo-Rto 13.3 11.7 - 14.4 06/03/2018 [facility] Automated blood platelet count (count/volume) 237 140 - 360 06/03/2018 [facility] Automated blood segmented neutrophil count as percentage of total leukocytes 65.3 38.7 - 80.0 06/03/2018 [facility] Automated blood lymphocyte count as percentage ot total leukocytes 26.9 18.0 - 39.1 06/03/2018 [facility] Automated blood monocyte count as percentage of total leukocytes 5.2 4.4 - 11.3 06/03/2018 [facility] Automated blood eosinophil count as percentage of total leukocytes 1.5 0.0 - 6.0 06/03/2018 [facility] Automated blood basophil count as percentage of total leukocytes 0.7 0.0 - 1.0 06/03/2018 [facility] IM GRANULOCYTES % 0.4 0.0 - 1.0 06/03/2018 [facility] Automated blood neutrophil count 3.5 2.1 - 6.9 06/03/2018 [facility] Blood lymphocytes count (number/volume) 1.5 1.0 - 3.2 06/03/2018 [facility] Blood monocytes automated count (number/volume) 0.3 0.2 - 0.8 06/03/2018 [facility] Automated blood eosinophil count 0.1 0.0 - 0.4 06/03/2018 [facility] Automated blood basophil count (count/volume) 0.0 0.0 - 0.1 06/03/2018 [facility] Absolute Immature Granulocyte (auto 0.02 0 - 0.1 06/03/2018 [facility] Serum or plasma sodium measurement (moles/volume) 134 136 - 145 06/03/2018 [facility] Serum or plasma potassium measurement (moles/volume) 3.7 3.5 - 5.1 06/03/2018 [facility] Serum or plasma chloride measurement (moles/volume) 103 98 - 107 06/03/2018 [facility] Serum or plasma carbon dioxide, total measurement (moles/volume) 24 22 - 29 06/03/2018 [facility] Serum or plasma anion gap 10.7 8 - 16 06/03/2018 [facility] Serum or plasma urea nitrogen measurement (mass/volume) 10 7 - 26 06/03/2018 [facility] Serum or plasma creatinine measurement (mass/volume) 0.82 0.57 - 1.11 06/03/2018 [facility] Serum or plasma urea nitrogen/creatinine mass ratio 12 6 - 25 06/03/2018 [facility] Estimated glomerular filtration rate (GFR) determination > 60 60 06/03/2018 [facility] Glucose measurement 96 74 - 118 06/03/2018 [facility] Serum or plasma calcium measurement (mass/volume) 8.9 8.4 - 10.2 06/03/2018 [facility] Serum or plasma magnesium measurement (mass/volume) 1.9 1.3 - 2.1 06/03/2018 [facility] Serum or plasma total bilirubin measurement (mass/volume) 0.5 0.2 - 1.2 06/03/2018 [facility] Aspartate Amino Transf (AST/SGOT) 14 5 - 34 06/03/2018 [facility] Serum or plasma alanine aminotransferase measurement (enzymatic activity/volume) 19 0 - 55 06/03/2018 [facility] Serum or plasma protein measurement (mass/volume) 6.3 6.5 - 8.1 06/03/2018 [facility] Serum or plasma albumin measurement (mass/volume) 3.5 3.5 - 5.0 06/03/2018 [facility] Plasma globulin measurement (mass/volume) 2.8 2.3 - 3.5 06/03/2018 [facility] Serum or plasma albumin/globulin mass ratio 1.3 0.8 - 2.0 06/03/2018 [facility] Serum or plasma alkaline phosphatase measurement (enzymatic activity/volume) 84 40 - 150 06/03/2018 [facility] Urine color determination YELLOW YELLOW 06/03/2018 [facility] Urine clarity SL CLOUDY CLEAR 06/03/2018 [facility] Specific gravity of Urine by Test strip 1.010 1.010 - 1.025 06/03/2018 [facility] Urine pH measurement by automated test strip 6.5 5 - 7 06/03/2018 [facility] Urine leukocyte esterase detection by dipstick TRACE NEGATIVE 06/03/2018 [facility] Urine nitrite detection NEGATIVE NEGATIVE 06/03/2018 [facility] Urine protein measurement by test strip (mass/volume) NEGATIVE NEGATIVE 06/03/2018 [facility] Urine glucose detection NEGATIVE NEGATIVE 06/03/2018 [facility] Urine ketones detection by automated test strip NEGATIVE NEGATIVE 06/03/2018 [facility] Urine urobilinogen measurement by test strip (mass/volume) 0.2 0.2 - 1 06/03/2018 [facility] Urine total bilirubin measurement (mass/volume) NEGATIVE NEGATIVE 06/03/2018 [facility] Urine erythrocytes detection NEGATIVE NEGATIVE 06/03/2018 [facility] Automated urine sediment leukocyte count by microscopy (number/high power field) 0-5 0 - 5 06/03/2018 [facility] Erythrocytes detection in urine sediment by light microscopy NONE 0 - 5 06/03/2018 [facility] Bacteria detection in urine sediment by light microscopy MODERATE NONE 06/03/2018 [facility] Epithelial cells detection in urine sediment by light microscopy RARE NONE 06/03/2018 [facility] Urine human chorionic gonadotropin (hCG) detection NEGATIVE NEGATIVE 06/03/2018 [facility] Urine opiates screening test NEGATIVE NEGATIVE 04/28/2018 [facility] Barbiturates screen, urine NEGATIVE NEGATIVE 04/28/2018 [facility] Urine phencyclidine detection by screening method NEGATIVE NEGATIVE 04/28/2018 [facility] Urine amphetamines detection by screen method > 1000 ng/mL NEGATIVE NEGATIVE 04/28/2018 [facility] Urine Methamphetamines Screen NEGATIVE NEGATIVE 04/28/2018 [facility] Urine benzodiazepines detection by screening method POSITIVE NEGATIVE 04/28/2018 [facility] Urine cocaine measurement (mass/volume) NEGATIVE NEGATIVE 04/28/2018 [facility] Urine cannabinoids detection by screening method POSITIVE NEGATIVE 04/28/2018 [facility] Urine methadone screen NEGATIVE NEGATIVE 04/28/2018 [facility] Serum or plasma lipase measurement (enzymatic activity/volume) 29 8 - 78 04/28/2018 [facility] Automated blood platelet count (count/volume) 249 140 - 360 04/28/2018 [facility] Automated blood segmented neutrophil count as percentage of total leukocytes 63.7 38.7 - 80.0 04/28/2018 [facility] Automated blood lymphocyte count as percentage ot total leukocytes 28.5 18.0 - 39.1 04/28/2018 [facility] Automated blood monocyte count as percentage of total leukocytes 4.6 4.4 - 11.3 04/28/2018 [facility] Automated blood eosinophil count as percentage of total leukocytes 2.2 0.0 - 6.0 04/28/2018 [facility] Automated blood basophil count as percentage of total leukocytes 0.7 0.0 - 1.0 04/28/2018 [facility] IM GRANULOCYTES % 0.3 0.0 - 1.0 04/28/2018 [facility] Automated blood neutrophil count 3.7 2.1 - 6.9 04/28/2018 [facility] Blood lymphocytes count (number/volume) 1.7 1.0 - 3.2 04/28/2018 [facility] Blood monocytes automated count (number/volume) 0.3 0.2 - 0.8 04/28/2018 [facility] Automated blood eosinophil count 0.1 0.0 - 0.4 04/28/2018 [facility] Automated blood basophil count (count/volume) 0.0 0.0 - 0.1 04/28/2018 [facility] Absolute Immature Granulocyte (auto 0.02 0 - 0.1 04/28/2018 [facility] Urine color determination YELLOW YELLOW 04/28/2018 [facility] Urine clarity HAZY CLEAR 04/28/2018 [facility] Specific gravity of Urine by Test strip 1.005 1.010 - 1.025 04/28/2018 [facility] Urine pH measurement by automated test strip 6 5 - 7 04/28/2018 [facility] Urine leukocyte esterase detection by dipstick NEGATIVE NEGATIVE 04/28/2018 [facility] Urine nitrite detection NEGATIVE NEGATIVE 04/28/2018 [facility] Urine protein measurement by test strip (mass/volume) NEGATIVE NEGATIVE 04/28/2018 [facility] Urine glucose detection NEGATIVE NEGATIVE 04/28/2018 [facility] Urine ketones detection by automated test strip NEGATIVE NEGATIVE 04/28/2018 [facility] Urine opiates screening test NEGATIVE NEGATIVE 04/28/2018 [facility] Barbiturates screen, urine NEGATIVE NEGATIVE 04/28/2018 [facility] Urine phencyclidine detection by screening method NEGATIVE NEGATIVE 04/28/2018 [facility] Urine amphetamines detection by screen method > 1000 ng/mL NEGATIVE NEGATIVE 04/28/2018 [facility] Urine Methamphetamines Screen NEGATIVE NEGATIVE 04/28/2018 [facility] Urine benzodiazepines detection by screening method POSITIVE NEGATIVE 04/28/2018 [facility] Urine cocaine measurement (mass/volume) NEGATIVE NEGATIVE 04/28/2018 [facility] Urine cannabinoids detection by screening method POSITIVE NEGATIVE 04/28/2018 [facility] Urine methadone screen NEGATIVE NEGATIVE 04/28/2018 [facility] Urine urobilinogen measurement by test strip (mass/volume) 0.2 0.2 - 1 04/28/2018 [facility] Urine total bilirubin measurement (mass/volume) NEGATIVE NEGATIVE 04/28/2018 [facility] Urine erythrocytes detection NEGATIVE NEGATIVE 04/28/2018 [facility] Automated urine sediment leukocyte count by microscopy (number/high power field) 0-5 0 - 5 04/28/2018 [facility] Erythrocytes detection in urine sediment by light microscopy 0-5 0 - 5 04/28/2018 [facility] Bacteria detection in urine sediment by light microscopy MODERATE NONE 04/28/2018 [facility] Epithelial cells detection in urine sediment by light microscopy MODERATE NONE 04/28/2018 [facility] Serum or plasma sodium measurement (moles/volume) 134 136 - 145 04/28/2018 [facility] Serum or plasma potassium measurement (moles/volume) 3.9 3.5 - 5.1 04/28/2018 [facility] Serum or plasma chloride measurement (moles/volume) 103 98 - 107 04/28/2018 [facility] Serum or plasma carbon dioxide, total measurement (moles/volume) 23 22 - 29 04/28/2018 [facility] Serum or plasma anion gap 11.9 8 - 16 04/28/2018 [facility] Serum or plasma urea nitrogen measurement (mass/volume) 11 7 - 26 04/28/2018 [facility] Serum or plasma creatinine measurement (mass/volume) 0.84 0.57 - 1.11 04/28/2018 [facility] Serum or plasma urea nitrogen/creatinine mass ratio 13 6 - 25 04/28/2018 [facility] Estimated glomerular filtration rate (GFR) determination > 60 60 04/28/2018 [facility] Glucose measurement 121 74 - 118 04/28/2018 [facility] Serum or plasma calcium measurement (mass/volume) 9.1 8.4 - 10.2 04/28/2018 [facility] Serum or plasma total bilirubin measurement (mass/volume) 0.3 0.2 - 1.2 04/28/2018 [facility] Aspartate Amino Transf (AST/SGOT) 19 5 - 34 04/28/2018 [facility] Serum or plasma alanine aminotransferase measurement (enzymatic activity/volume) 27 0 - 55 04/28/2018 [facility] Serum or plasma protein measurement (mass/volume) 6.9 6.5 - 8.1 04/28/2018 [facility] Serum or plasma albumin measurement (mass/volume) 3.6 3.5 - 5.0 04/28/2018 [facility] Plasma globulin measurement (mass/volume) 3.3 2.3 - 3.5 04/28/2018 [facility] Serum or plasma albumin/globulin mass ratio 1.1 0.8 - 2.0 04/28/2018 [facility] Serum or plasma alkaline phosphatase measurement (enzymatic activity/volume) 108 40 - 150 04/28/2018 [facility] Serum or plasma lipase measurement (enzymatic activity/volume) 29 8 - 78 04/28/2018 [facility] Serum or plasma amylase measurement (enzymatic activity/volume) 101 25 - 125 03/28/2018 [facility] Serum or plasma choriogonadotropin ( test) detection NEGATIVE NEGATIVE 03/28/2018 [facility] Serum or plasma amylase measurement (enzymatic activity/volume) 101 25 - 125 03/28/2018 [facility] Serum or plasma choriogonadotropin ( test) detection NEGATIVE NEGATIVE 03/28/2018 [facility] Automated blood basophil count (count/volume) Automated blood basophil count (count/volume) 0.0 0.0 - 0.1 03/04/2018 [facility] Automated blood basophil count as percentage of total leukocytes Automated blood basophil count as percentage of total leukocytes 0.6 0.0 - 1.0 03/04/2018 [facility] Automated blood eosinophil count Automated blood eosinophil count 0.1 0.0 - 0.4 03/04/2018 [facility] Automated blood eosinophil count as percentage of total leukocytes Automated blood eosinophil count as percentage of total leukocytes 2.3 0.0 - 6.0 03/04/2018 [facility] Automated blood hematocrit (volume fraction) Automated blood hematocrit (volume fraction) 36.8 34.2 - 44.1 03/04/2018 [facility] Automated blood lymphocyte count as percentage ot total leukocytes Automated blood lymphocyte count as percentage ot total leukocytes 20.3 18.0 - 39.1 03/04/2018 [facility] Automated blood monocyte count as percentage of total leukocytes Automated blood monocyte count as percentage of total leukocytes 6.0 4.4 - 11.3 03/04/2018 [facility] Automated blood neutrophil count Automated blood neutrophil count 4.4 2.1 - 6.9 03/04/2018 [facility] Automated blood platelet count (count/volume) Automated blood platelet count (count/volume) 264 140 - 360 03/04/2018 [facility] Automated blood segmented neutrophil count as percentage of total leukocytes Automated blood segmented neutrophil count as percentage of total leukocytes 70.5 38.7 - 80.0 03/04/2018 [facility] Automated erythrocyte mean corpuscular hemoglobin (mass per erythrocyte) Automated erythrocyte mean corpuscular hemoglobin (mass per erythrocyte) 29.8 28 - 32 03/04/2018 [facility] Automated erythrocyte mean corpuscular hemoglobin concentration measurement (mass/volume) Automated erythrocyte mean corpuscular hemoglobin concentration measurement (mass/volume) 34.0 31 - 35 03/04/2018 [facility] Automated erythrocyte mean corpuscular volume Automated erythrocyte mean corpuscular volume 87.6 81 - 99 03/04/2018 [facility] Automated urine sediment leukocyte count by microscopy (number/high power field) Automated urine sediment leukocyte count by microscopy (number/high power field) NONE 0 - 5 03/04/2018 [facility] Bacteria detection in urine sediment by light microscopy Bacteria detection in urine sediment by light microscopy FEW NONE 03/04/2018 [facility] Blood erythrocytes automated count (number/volume) Blood erythrocytes automated count (number/volume) 4.20 3.6 - 5.1 03/04/2018 [facility] Blood hemoglobin measurement (moles/volume) Blood hemoglobin measurement (moles/volume) 12.5 12.0 - 16.0 03/04/2018 [facility] Blood leukocytes automated count (number/volume) Blood leukocytes automated count (number/volume) 6.21 4.8 - 10.8 03/04/2018 [facility] Blood lymphocytes count (number/volume) Blood lymphocytes count (number/volume) 1.3 1.0 - 3.2 03/04/2018 [facility] Blood monocytes automated count (number/volume) Blood monocytes automated count (number/volume) 0.4 0.2 - 0.8 03/04/2018 [facility] Epithelial cells detection in urine sediment by light microscopy Epithelial cells detection in urine sediment by light microscopy FEW NONE 03/04/2018 [facility] Erythrocytes detection in urine sediment by light microscopy Erythrocytes detection in urine sediment by light microscopy null 0 - 5 03/04/2018 [facility] Estimated glomerular filtration rate (GFR) determination Estimated glomerular filtration rate (GFR) determination null 60 03/04/2018 [facility] Glucose measurement Glucose measurement 122 74 - 118 03/04/2018 [facility] Plasma globulin measurement (mass/volume) Plasma globulin measurement (mass/volume) 3.2 2.3 - 3.5 03/04/2018 [facility] Serum or plasma alanine aminotransferase measurement (enzymatic activity/volume) Serum or plasma alanine aminotransferase measurement (enzymatic activity/volume) 24 0 - 55 03/04/2018 [facility] Serum or plasma albumin measurement (mass/volume) Serum or plasma albumin measurement (mass/volume) 3.5 3.5 - 5.0 03/04/2018 [facility] Serum or plasma albumin/globulin mass ratio Serum or plasma albumin/globulin mass ratio 1.1 0.8 - 2.0 03/04/2018 [facility] Serum or plasma alkaline phosphatase measurement (enzymatic activity/volume) Serum or plasma alkaline phosphatase measurement (enzymatic activity/volume) 107 40 - 150 03/04/2018 [facility] Serum or plasma anion gap Serum or plasma anion gap 15.3 8 - 16 03/04/2018 [facility] Serum or plasma calcium measurement (mass/volume) Serum or plasma calcium measurement (mass/volume) 9.3 8.4 - 10.2 03/04/2018 [facility] Serum or plasma carbon dioxide, total measurement (moles/volume) Serum or plasma carbon dioxide, total measurement (moles/volume) 22 22 - 29 03/04/2018 [facility] Serum or plasma chloride measurement (moles/volume) Serum or plasma chloride measurement (moles/volume) 105 98 - 107 03/04/2018 [facility] Serum or plasma creatinine measurement (mass/volume) Serum or plasma creatinine measurement (mass/volume) 0.99 0.57 - 1.11 03/04/2018 [facility] Serum or plasma lipase measurement (enzymatic activity/volume) Serum or plasma lipase measurement (enzymatic activity/volume) 32 8 - 78 03/04/2018 [facility] Serum or plasma potassium measurement (moles/volume) Serum or plasma potassium measurement (moles/volume) 4.3 3.5 - 5.1 03/04/2018 [facility] Serum or plasma protein measurement (mass/volume) Serum or plasma protein measurement (mass/volume) 6.7 6.5 - 8.1 03/04/2018 [facility] Serum or plasma sodium measurement (moles/volume) Serum or plasma sodium measurement (moles/volume) 138 136 - 145 03/04/2018 [facility] Serum or plasma total bilirubin measurement (mass/volume) Serum or plasma total bilirubin measurement (mass/volume) 0.2 0.2 - 1.2 03/04/2018 [facility] Serum or plasma urea nitrogen measurement (mass/volume) Serum or plasma urea nitrogen measurement (mass/volume) 16 7 - 26 03/04/2018 [facility] Serum or plasma urea nitrogen/creatinine mass ratio Serum or plasma urea nitrogen/creatinine mass ratio 16 6 - 25 03/04/2018 [facility] Specific gravity of Urine by Test strip Specific gravity of Urine by Test strip 1.010 1.010 - 1.025 03/04/2018 [facility] Urine clarity Urine clarity SL CLOUDY CLEAR 03/04/2018 [facility] Urine color determination Urine color determination YELLOW YELLOW 03/04/2018 [facility] Urine erythrocytes detection Urine erythrocytes detection 3+ NEGATIVE 03/04/2018 [facility] Urine glucose detection Urine glucose detection NEGATIVE NEGATIVE 03/04/2018 [facility] Urine ketones detection by automated test strip Urine ketones detection by automated test strip NEGATIVE NEGATIVE 03/04/2018 [facility] Urine leukocyte esterase detection by dipstick Urine leukocyte esterase detection by dipstick NEGATIVE NEGATIVE 03/04/2018 [facility] Urine nitrite detection Urine nitrite detection NEGATIVE NEGATIVE 03/04/2018 [facility] Urine pH measurement by automated test strip Urine pH measurement by automated test strip 6 5 - 7 03/04/2018 [facility] Urine protein measurement by test strip (mass/volume) Urine protein measurement by test strip (mass/volume) NEGATIVE NEGATIVE 03/04/2018 [facility] Urine total bilirubin measurement (mass/volume) Urine total bilirubin measurement (mass/volume) NEGATIVE NEGATIVE 03/04/2018 [facility] Urine urobilinogen measurement by test strip (mass/volume) Urine urobilinogen measurement by test strip (mass/volume) 0.2 0.2 - 1 03/04/2018 [facility] Red Cell Distribution Width 13.8 11.7 - 14.4 03/04/2018 [facility] IM GRANULOCYTES % 0.3 0.0 - 1.0 03/04/2018 [facility] Absolute Immature Granulocyte (auto 0.02 0 - 0.1 03/04/2018 [facility] Aspartate Amino Transf (AST/SGOT) 20 5 - 34 03/04/2018 [facility] Capillary blood glucose measurement by glucometer (mass/volume) 106 70 - 120 02/09/2018 [facility] Capillary blood glucose measurement by glucometer (mass/volume) 106 70 - 120 02/09/2018 [facility] Capillary blood glucose measurement by glucometer (mass/volume) Capillary blood glucose measurement by glucometer (mass/volume) 106 70 - 120 02/09/2018 [facility] Urine human chorionic gonadotropin (hCG) detection NEGATIVE NEGATIVE 02/09/2018 [facility] Urine human chorionic gonadotropin (hCG) detection Urine human chorionic gonadotropin (hCG) detection NEGATIVE NEGATIVE 02/09/2018 [facility] Serum or plasma creatine kinase measurement (enzymatic activity/volume) 75 29 - 168 01/21/2018 [facility] Serum or plasma creatine kinase MB measurement (mass/volume) 0.40 0 - 5.0 01/21/2018 [facility] Troponin I measurement by highly sensitive enzyme immunoassay < 0.001 0 - 0.300 01/21/2018 [facility] Troponin I measurement by highly sensitive enzyme immunoassay < 0.001 0 - 0.300 01/21/2018 [facility] Barbiturates screen, urine Barbiturates screen, urine NEGATIVE NEGATIVE 01/21/2018 [facility] Serum or plasma amylase measurement (enzymatic activity/volume) Serum or plasma amylase measurement (enzymatic activity/volume) 96 25 - 125 01/21/2018 [facility] Serum or plasma choriogonadotropin ( test) detection Serum or plasma choriogonadotropin ( test) detection NEGATIVE NEGATIVE 01/21/2018 [facility] Serum or plasma creatine kinase MB measurement (mass/volume) Serum or plasma creatine kinase MB measurement (mass/volume) 0.40 0 - 5.0 01/21/2018 [facility] Serum or plasma creatine kinase measurement (enzymatic activity/volume) Serum or plasma creatine kinase measurement (enzymatic activity/volume) 75 29 - 168 01/21/2018 [facility] Troponin I measurement by highly sensitive enzyme immunoassay Troponin I measurement by highly sensitive enzyme immunoassay null 0 - 0.300 01/21/2018 [facility] Urine amphetamines detection by screen method > 1000 ng/mL Urine amphetamines detection by screen method > 1000 ng/mL NEGATIVE NEGATIVE 01/21/2018 [facility] Urine benzodiazepines detection by screening method Urine benzodiazepines detection by screening method POSITIVE NEGATIVE 01/21/2018 [facility] Urine cannabinoids detection by screening method Urine cannabinoids detection by screening method POSITIVE NEGATIVE 01/21/2018 [facility] Urine cocaine measurement (mass/volume) Urine cocaine measurement (mass/volume) NEGATIVE NEGATIVE 01/21/2018 [facility] Urine opiates screening test Urine opiates screening test NEGATIVE NEGATIVE 01/21/2018 [facility] Urine phencyclidine detection by screening method Urine phencyclidine detection by screening method NEGATIVE NEGATIVE 01/21/2018 [facility] Urine Methamphetamines Screen NEGATIVE NEGATIVE 01/21/2018 [facility] Mucus detection in urine sediment by light microscopy FEW RARE 10/26/2017 [facility] Mucus detection in urine sediment by light microscopy FEW RARE 10/26/2017 [facility] Mucus detection in urine sediment by light microscopy Mucus detection in urine sediment by light microscopy FEW RARE 10/26/2017 [facility] Serum or plasma conjugated bilirubin measurement (mass/volume) 0.1 0.0 - 0.5 08/21/2017 [facility] Serum or plasma conjugated bilirubin measurement (mass/volume) 0.1 0.0 - 0.5 08/21/2017 [facility] Serum or plasma conjugated bilirubin measurement (mass/volume) Serum or plasma conjugated bilirubin measurement (mass/volume) 0.1 0.0 - 0.5 08/21/2017 [facility] Blood culture NO GROWTH AFTER 5 DAYS, FINAL REPORT 08/20/2017 [facility] Blood culture NO GROWTH AFTER 5 DAYS, FINAL REPORT 08/20/2017 [facility] Blood culture Blood culture NO GROWTH AFTER 5 DAYS, FINAL REPORT 08/20/2017 [facility] Hemoglobin A1c Percent 4.9 4.0 - 7.0 08/20/2017 [facility] Hemoglobin A1c Percent 4.9 4.0 - 7.0 08/20/2017 [facility] Serum or plasma triglyceride measurement (mass/volume) 113 0 - 149 08/20/2017 [facility] Serum or plasma cholesterol measurement (mass/volume) 227 0 - 199 08/20/2017 [facility] Serum or plasma cholesterol in LDL measurement (mass/volume) 141 60 - 130 08/20/2017 [facility] Serum or plasma cholesterol in HDL measurement (mass/volume) 63 40 - 60 08/20/2017 [facility] Serum or plasma total cholesterol/cholesterol in HDL mass ratio 3.6 3.0 - 3.6 08/20/2017 [facility] Serum or plasma total cholesterol/cholesterol in HDL mass ratio 3.6 3.0 - 3.6 08/20/2017 [facility] Serum or plasma cholesterol in HDL measurement (mass/volume) Serum or plasma cholesterol in HDL measurement (mass/volume) 63 40 - 60 08/20/2017 [facility] Serum or plasma cholesterol in LDL measurement (mass/volume) Serum or plasma cholesterol in LDL measurement (mass/volume) 141 60 - 130 08/20/2017 [facility] Serum or plasma cholesterol measurement (mass/volume) Serum or plasma cholesterol measurement (mass/volume) 227 0 - 199 08/20/2017 [facility] Serum or plasma total cholesterol/cholesterol in HDL mass ratio Serum or plasma total cholesterol/cholesterol in HDL mass ratio 3.6 3.0 - 3.6 08/20/2017 [facility] Serum or plasma triglyceride measurement (mass/volume) Serum or plasma triglyceride measurement (mass/volume) 113 0 - 149 08/20/2017 [facility] Transitional cells detection in urine sediment by light microscopy RARE NONE 08/05/2017 [facility] Transitional cells detection in urine sediment by light microscopy Transitional cells detection in urine sediment by light microscopy RARE NONE 08/05/2017 [facility] Bacterial urine culture Urine Culture [facility] Vital Signs Vital Sign Value Date Comments Source Diastolic (mm Hg) 73 06/09/2018 [facility] Systolic (mm Hg) 107 06/09/2018 [facility] Height 64 06/09/2018 [facility] Heart Rate 67 06/09/2018 [facility] Weight 239 06/09/2018 [facility] Diastolic (mm Hg) 67 05/05/2018 [facility] Systolic [...] DC Date Status Source Departed Emergency Room [id number] MARTA BARROW MD 07/03/2017 07/03/2017 [facility] Departed Emergency Room [id number] MADELINE MCKEON MD 07/30/2017 07/30/2017 [facility] Departed Emergency Room [id number] MADELINE GILBERT MD 08/05/2017 08/05/2017 [facility] Discharged Inpatient [id number] NEELIMA TILLEY MD 08/20/2017 08/24/2017 [facility] Departed Emergency Room [id number] COLLETTE MARTINEZ MD 09/09/2017 09/09/2017 [facility] Est Patient Detailed - [id number] Bogdan Hand MD 09/25/2017 [facility] Est Patient Detailed - [id number] Bogdan Hand MD 10/21/2017 [facility] [id number] MADELINE GILBERT MD 10/26/2017 10/26/2017 [facility] Departed Emergency Room [id number] CANDE LOUIS MD 11/17/2017 11/17/2017 [facility] Est Patient Detailed - [id number] Bogdan Hand MD 11/20/2017 [facility] Departed Emergency Room [id number] MADELINE GILBERT MD 12/04/2017 12/04/2017 [facility] Est Patient Detailed - [id number] Bogdan Hand MD 12/13/2017 [facility] Est Patient Detailed - [id number] Bogdan Hand MD 01/15/2018 [facility] Departed Emergency Room [id number] SEEMA TINAJERO MD 01/21/2018 01/21/2018 [facility] Est Patient Detailed - [id number] Bogdan Hand MD 02/07/2018 [facility] Departed Emergency Room [id number] COLLETTE MARTINEZ MD 02/09/2018 02/09/2018 [facility] Est Patient Exp Problem - [id number] Bogdan Hand MD 02/17/2018 [facility] Departed Emergency Room [id number] SEEMA TINAJERO MD 03/04/2018 03/04/2018 [facility] Est Patient Exp Problem - 53942 [id number] Bogdan Hand MD 03/17/2018 [facility] Departed Emergency Room [id number] DANIAL ÁLVAREZ MD 03/28/2018 03/28/2018 [facility] Departed Emergency Room [id number] EROS SIDHU MD 03/31/2018 03/31/2018 [facility] Departed Emergency Room [id number] EROS SIDHU MD 04/09/2018 04/09/2018 [facility] Patient Detailed - [id number] Bogdan Hand MD 04/14/2018 [facility] Departed Emergency Room [id number] SEEMA TINAJERO MD 04/28/2018 04/28/2018 [facility] Patient Detailed - [id number] Bogdan Hand MD 05/05/2018 [facility] Departed Emergency Room [id number] EROS SIDHU MD 06/03/2018 06/03/2018 [facility] Patient Exp Problem - 48498 [id number] Bogdan Hand MD 06/09/2018 [facility] Procedures Procedure Code Date Perfomer Comments Source CT of abdomen and pelvis without contrast [id number] 06/03/2018 [facility] Computed tomography of abdomen and pelvis with contrast 951891110 03/28/2018 [facility] Computed tomography of abdomen and pelvis with contrast 112276542 03/04/2018 [facility] Computed tomography of chest with contrast 68938852 03/04/2018 [facility] Psychotherapy 45 (38-52*) min - 29334 (with patient and/or family member) 87818 02/26/2018 [facility] Diagnostic evaluation (no medical) - 44999 83790 02/10/2018 [facility] Computed tomography of abdomen and pelvis with contrast 302726065 01/21/2018 [facility] Computed tomography of lumbar spine with contrast 58941762 01/21/2018 [facility] Computed tomography of abdomen and pelvis with contrast 092766876 12/04/2017 [facility] Computed tomography of abdomen and pelvis with contrast 406534156 11/17/[facility] of abdomen and pelvis with contrast 017831155 10/26/2017 [facility] Diagnostic evaluation with medical - 20217 19261 08/31/2017 [facility] Computed tomography of abdomen with contrast 40691426 08/23/2017 [facility] Computed tomography of abdomen and pelvis with contrast 060586509 08/20/2017 [facility] of abdomen and pelvis without contrast 344609156 08/05/2017 [facility] CT of abdomen and pelvis without contrast 505659869 [facility] 910319266 07/03/2017 [facility]
--- OUTSIDE RECORDS SUMMARY | 2018-06-15 08:22 | XMS REPORT ---
Author Author Admin, [place] Organization [facility] Address [address] [address] Phone Allergies, Adverse Reactions, Alerts Allergy Name [...] Mouth daily as needed for anxiety CLONAZEPAM 54671471850 Active Bogdan Hand MD Active TRAZODONE HCL 150 MG ORAL TABLET Take one tablet By Mouth at bedtime TRAZODONE HCL 57199011975 Active Bogdan aHnd MD Active AMITRIPTYLINE HCL 150 MG ORAL TABLET Take two tablets By Mouth at bedtime AMITRIPTYLINE HCL 17696131424 Active Bogdan Hand MD Active PRAZOSIN HCL 5 MG ORAL CAPSULE Take 3 capsules By Mouth at bedtime PRAZOSIN HCL 67730786916 Active Bogdan Hand MD Active LEXAPRO 20 MG ORAL TABLET Take one tablet By Mouth daily ESCITALOPRAM OXALATE 42518990610 Active Bogdan Hand MD Active VALIUM 10 MG ORAL TABLET Take one tablet By Mouth at bedtime for breakthrough anxiety DIAZEPAM 12653572193 Active Bogdan Hand MD Active DIAZEPAM 5 MG TABS TAKE 1 TABLET BY MOUTH AT BEDTIME NEEDED FOR BREAKTHROUGH ANXIETY DIAZEPAM 53938884293 Active Bogdan Hand MD Active WELLBUTRIN XL 150 MG ORAL TABLET EXTENDED RELEASE 24 HOUR Take one tablet By Mouth daily WELLBUTRIN XL 150 MG ORAL TABLET EXTENDED RELEASE 24 HOUR BUPROPION HCL Inactive LUNESTA 3 MG ORAL TABLET Take one tablet By Mouth at bedtime LUNESTA 3 MG ORAL TABLET 818360 ESZOPICLONE Inactive ZYPREXA 10 MG ORAL TABLET Take one tablet By Mouth daily ZYPREXA 10 MG ORAL TABLET 979546 OLANZAPINE Inactive LUNESTA 3 MG ORAL TABLET Take one tablet at bedtime LUNESTA 3 MG ORAL TABLET 098933 ESZOPICLONE Inactive WELLBUTRIN XL 150 MG ORAL TABLET EXTENDED RELEASE 24 HOUR Take one tablet By Mouth daily BUPROPION HCL 95704934630 No Longer Active Bogdan Hand MD Active LUNESTA 3 MG ORAL TABLET Take one tablet By Mouth at bedtime ESZOPICLONE 92528701897 No Longer Active Bogdan Hand MD Active TEMAZEPAM 30 MG ORAL CAPSULE Take one capsule By Mouth By Mouth at bedtime TEMAZEPAM 58120312843 No Longer Active Bogdan Hand MD Active ZYPREXA 10 MG ORAL TABLET Take one tablet By Mouth daily OLANZAPINE 03330991324 No Longer Active Bogdan Hand MD Active LORAZEPAM 2 MG ORAL TABLET Take one tablet By Mouth TID as needed for anxiety LORAZEPAM 88735160364 No Longer Active Bogdan Hand MD Active LUNESTA 3 MG ORAL TABLET Take one tablet at bedtime ESZOPICLONE 13621324430 No Longer Active Bogdan Hand MD Active Vital Signs Date Name Value Unit Range Description blood pressure, diastolic 73 mm[Hg] BP siddiqui blood pressure, systolic 107 mm[Hg] BP sys height E&M 64 [in_us] Bdy height pulse rate E&M 67 /min Heart rate weight E&M 239 [lb_av] Weight Measured blood pressure, diastolic 67 [...] Measured Encounters Date Encounter Provider Code Facility 10:20:33 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 Est Patient Exp Problem - 71444 Bogdan Hand MD CPT-41418 [facility] 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 Est Patient Detailed - 21798 Bogdan Hand MD CPT-77549 [facility] 11:34:27 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 Est Patient Detailed - 39621 Bogdan Hand MD CPT-68393 [facility] 10:47:07 CDT Est Patient Exp Problem - 88876 Bogdan Hand MD CPT-05029 [facility] 08:46:49 CDT Est Patient Exp Problem - 24701 Bogdan Hand MD CPT-48599 [facility] 08:33:08 CDT Est Patient Detailed - 89916 Bogdan Hand MD CPT-87510 [facility] 08:31:14 CDT Est Patient Detailed - 95136 Bogdan Hand MD CPT-43650 [facility] 13:41:13 CDT Est Patient Detailed - 20901 Bogdan Hand MD CPT-52092 [facility] 19:16:18 CDT Est Patient Detailed - 29855 Bogdan Hand MD CPT-14413 [facility] 09:08:54 CDT Est Patient Detailed - 53124 Bogdan Hand MD CPT-86256 [facility] 08:21:45 CDT Est Patient Detailed - 35377 Bogdan Hand MD CPT-33427 [facility] Procedures Code Procedure Name Date Entry Date Standard Description CPT-95890 Psychotherapy 45 (38-52*) min - 47762 (with patient and/or family member) 13:05:22 CDT CPT-33439 Diagnostic evaluation (no medical) - 44542 10:06:21 CDT CPT-32965 Diagnostic evaluation with medical - 42724 20:46:14 CDT
[2018-06-15] MEDS ORDERED: HALOPERIDOL LACTATE 5 MG/ML VIAL IV ONE (08:45)
[2018-06-15 10:05] LABS: BASOPHILS # (AUTO) 0.1 (0.0-0.1); EOSINOPHILS # (AUTO) 0.1 (0.0-0.4); EOSINOPHILS % 1.6 % (0.0-6.0); HEMATOCRIT 38.1 % (34.2-44.1); HEMOGLOBIN 12.7 g/dL (12.0-16.0); LYMPHOCYTES # (AUTO) 1.4 (1.0-3.2); LYMPHOCYTES % 28.9 % (18.0-39.1); MEAN CORPUSCULAR HEMOGLOBIN 29.5 pg (28-32); MEAN CORPUSCULAR HGB CONC 33.3 g/dL (31-35); MEAN CORPUSCULAR VOLUME 88.4 fL (81-99); MONOCYTES # (AUTO) 0.3 (0.2-0.8); MONOCYTES % 6.7 % (4.4-11.3); NEUTROPHILS % 60.6 % (38.7-80.0); PLATELET COUNT 297 x10e3/uL (140-360); RED BLOOD COUNT 4.31 x10e6/uL (3.6-5.1); RED CELL DISTRIBUTION WIDTH 13.5 % (11.7-14.4)
[2018-06-15 10:12] LABS: BILIRUBIN,URINE NEGATIVE (NEGATIVE); CLARITY,URINE CLEAR (CLEAR); COLOR,URINE YELLOW (YELLOW); KETONES,URINE NEGATIVE (NEGATIVE); LEUKOCYTE ESTERASE ,URINE TRACE (NEGATIVE); NITRITE,URINE NEGATIVE (NEGATIVE); PROTEIN,URINE DIPSTICK NEGATIVE (NEGATIVE); URINE UROBILINOGEN 0.2 mg/dL (0.2 - 1)
[2018-06-15 10:13] LABS: BENZODIAZEPINES SCREEN,URINE POSITIVE (NEGATIVE)
[2018-06-15 10:14] LABS: AMPHETAMINES SCREEN,URINE NEGATIVE (NEGATIVE); PHENCYCLIDINE SCREEN,URINE NEGATIVE (NEGATIVE)
[2018-06-15 10:24] LABS: ALANINE AMINOTRANSFERASE 19 IU/L (0-55); ALBUMIN 3.6 g/dL (3.5-5.0); ALBUMIN/GLOBULIN RATIO 1.3 (0.8-2.0); ALKALINE PHOSPHATASE 87 IU/L (40-150); AMYLASE 101 U/L (25-125); ANION GAP 10.7 mmol/L (8-16); BLOOD UREA NITROGEN 9 mg/dL (7-26); BUN/CREATININE RATIO 9 (6-25); CALCIUM 8.5 mg/dL (8.4-10.2); CARBON DIOXIDE 23 mmol/L (22-29); CHLORIDE 108 mmol/L (98-107); CREATININE, SERUM 0.99 mg/dL (0.57-1.11); EST GLOMERULAR FILTRATION RATE > 60 ML/MIN (60-); GLUCOSE 76 mg/dL (74-118); LIPASE 30 U/L (8-78); POTASSIUM 3.7 mmol/L (3.5-5.1); SODIUM 138 mmol/L (136-145)
[2018-06-15 10:27] LABS: BACTERIA,URINE MODERATE /HPF; EPITHELIAL CELLS,URINE RARE /LPF
[2018-06-15 11:15] VITALS: BP 118/78
== END 2018-06-15 11:31 | disposition home or self-care (01) ==
LOC: ER 08:19
DX: N30.90 Cystitis, unspecified without hematuria (principal); F14.129 Cocaine abuse with intoxication, unspecified; F13.129 Sedative, hypnotic or anxiolytic abuse with intoxication, unspecified; R10.11 Right upper quadrant pain; R10.31 Right lower quadrant pain; R10.13 Epigastric pain
CPT/HCPCS: 36415; 80053; 80307; 81001; 82150; 83690; 85025; 99283; J1630

== ENCOUNTER 2018-08-05 07:58 | Emergency (ER) | payer OTHER ==
[~2018-08-05] VITALS: Ht 162.6 cm; Wt 99.8 kg
--- OUTSIDE RECORDS SUMMARY | 2018-08-05 08:02 | XMS REPORT | Clinical Summary ---
Author Author [facility] Address Unknown Phone Unavailable Care Team Providers Care Social Services Designee Name Role Phone Sharpless PCP Unavailable Allergies [...] Mild dehydration 10/25/2017 Emergency Emergency Medicine after 08/04/2017 Social History Date Tobacco Use Types Packs/Day [...] CULTURE STAT 10/25/2017 8:37 AM CDT after 08/04/2017 Results * CT abdomen pelvis with IV contrast (10/25/2017 10:19 AM CDT) Narrative Performed At FINAL REPORT [facility] CT of the abdomen and [...] MD Report Verified Date/Time:10/25/2017 10:25:23 Reading Location: [facility] C013 Ortho Consult Reading Room Procedure [...] Report Verified Date/Time: 10/25/2017 10:25:23 Reading Location: [facility] C013X Ortho Consult Reading Room Performing Organization Address City/State/Zipcode Phone Number [facility] * Urinalysis w/Microscopic + Reflex to Culture (10/25/2017 8:37 AM CDT) Color, UA Light Yellow [facility] Clarity, UA Clear [facility] Specific [place], UA 1.005 1.001 - 1.035 [facility] pH, UA 6.0 5.0 - 8.0 [facility] Protein, UA Negative Negative [facility] Glucose, UA Negative Negative [facility] Ketones, UA Negative Negative [facility] Bilirubin, UA Negative Negative [facility] Blood, UA Negative Negative [facility] Nitrite, UA Negative Negative [facility] Leukocytes, UA Negative Negative [facility] Urobilinogen, UA 0.2 0.2 - 1.0 mg/dL [facility] RBC, UA <1 /HPF [facility] WBC, UA 6 /HPF [facility] Bacteria, UA Rare [facility] Mucus Rare [facility] Squam Epithel, UA 3 /HPF [facility] Amorphous Crystals Rare [facility] Specimen Source [facility] Specimen Urine - Urine, Clean Catch Performing Organization Address City/State/Zipcode Phone Number [facility] [address] [place] [address] MEDICAL CENTER * CBC with platelet count + automated diff (10/25/2017 8:37 AM CDT) WBC 6.2 3.5 - 10.5 K/L [facility] RBC 4.48 3.93 - 5.22 M/L [facility] Hemoglobin 12.7 11.2 - 15.7 GM/DL [facility] Hematocrit 39.5 34.1 - 44.9 % [facility] MCV 88.2 79.4 - 94.8 fL [facility] MCH 28.3 25.6 - 32.2 pg [facility] MCHC 32.2 32.2 - 35.5 GM/DL [facility] RDW 13.9 11.7 - 14.4 % [facility] Platelets 259 150 - 450 K/CU MM [facility] MPV 9.6 9.4 - 12.3 fL [facility] nRBC 0 0 - 0 /100 WBC [facility] % Neutros 67 % [facility] % Lymphs 25 % [facility] % Monos 6 % [facility] % Eos 2 % [facility] % Baso 0 % [facility] # Neutros 4.15 1.56 - 6.13 K/L [facility] # Lymphs 1.52 1.18 - 3.74 K/L [facility] # Monos 0.38 (H) 0.24 - 0.36 K/L [facility] # Eos 0.09 0.04 - 0.36 K/L [facility] # Baso 0.02 0.01 - 0.08 K/L [facility] Immature 1 0 - 1 % [facility] Granulocytes-[facility] Specimen Blood Performing Organization Address City/State/Zipcode Phone Number [facility] [address] [place] [address] MEDICAL CENTER * Urine culture (10/25/2017 8:37 AM CDT) Result ESCHERICHIA COLI (A) [facility] Specimen Urine - Urine, Clean Catch Narrative Performed At 10-19,000 col/mL skin ronaldo [facility] Antibiotic Method Susceptibility Organism Amikacin <=2: [...] <=20: Susceptible Escherichia coli Performing Organization Address [facility] Phone Number [address] * Lipase (10/25/2017 8:37 AM CDT) Lipase 40 8 - 78 U/L [facility] Specimen Blood Performing Organization Address [facility] Phone Number [address] * Comprehensive metabolic panel (10/25/2017 8:37 AM CDT) Protein, Total 6.3 6.0 - 8.3 gm/dL [facility] Albumin 3.9 3.5 - 5.0 g/dL [facility] Alkaline Phosphatase 80 40 - 150 U/L [facility] Total Bilirubin 0.2 0.2 - 1.2 mg/dL [facility] Sodium 142 136 - 145 meq/L [facility] Potassium 3.8 3.5 - 5.1 meq/L [facility] Chloride 111 (H) 98 - 107 meq/L [facility] CO2 23 22 - 29 meq/L [facility] BUN 14 7 - 21 mg/dL [facility] Creatinine 0.80 0.57 - 1.25 mg/dL [facility] Glucose 126 (H) 70 - 105 mg/dL [facility] Calcium 8.8 8.4 - 10.2 mg/dL [facility] AST 14 5 - 34 U/L [facility] ALT 21 6 - 55 U/L [facility] EGFR 80Comment: ESTIMATED GFR IS mL/min/1.73 sq m [facility] NOT ACCURATE CREATININE [facility] CLEARANCE IN PREDICTING GLOMERULAR FILTRATION RATE. ESTIMATED GFR IS NOT APPLICABLE FOR DIALYSIS PATIENTS. Specimen Blood Performing Organization Address City/State/Zipcode Phone Number [facility] [address] [place] [address] [facility] after 08/04/2017 Insurance Payer Benefit Subscriber ID Type Phone Address Plan / Group MEDICAID - MEDICAID MGD MEDICAID xxxxxxxxx Medicaid CARE [employer] Non-Contra cted
--- OUTSIDE RECORDS SUMMARY | 2018-08-05 08:02 | XMS REPORT | Clinical Summary ---
Author Author [facility] Address Unknown Phone Unavailable Care Team Providers Care [employer] Manager Name Role Phone Asked, No Pcp [...] (Primary Dx) 03/05/2018 Emergency Emergency Medicine after 08/04/2017 Social History [...] 12-LEAD STAT 03/05/2018 9:02 AM CDT after 08/04/2017 Results * Lactic acid level, SEPSIS - Now and repeat 2x every 3 hours (03/05/2018 1:15 PM CDT) Only the most recent of 2 results within the time period is included. Lactic acid 1.4 0.5 - 2.2 mmol/L [facility] DEPARTMENT OF PATHOLOGY AND GENOMIC MEDICINE Specimen Blood Performing Organization Address City/State/Zipcode Phone Number [facility] DEPARTMENT OF [address] [place] [address] PATHOLOGY AND GENOMIC MEDICINE * CT Chest [...] No fluid collections. IMPRESSION: No acute abnormality. [id number] Procedure Note Hm Interface, Radiology Results Incoming [...] No fluid collections. IMPRESSION: No acute abnormality. [id number] Performing Organization Address [facility]/[place] [address] * Estimated GFR (03/05/2018 10:15 AM CDT) Estimated GFR 87 mL/min/1.73 m2 [facility] DEPARTMENT OF Comment: PATHOLOGY AND [employer] GENOMIC MEDICINE rpretation G1 >=90 Normal or high G2 60-89Mildly decreased B1l46-92 Mildly to moderately decreased J9l99-47 Moderately to severely decreased G4 15-29Severely decreased G5 <15Kidney failure The eGFR was calculated using the Chronic Kidney Disease Epidemiology Collaboration (CKD-EPI) equation. Interpretation is based on recommendations of the National Kidney Foundation-Kidney Disease Outcomes Quality Initiative (NKF-KDOQI) published in 2014. Specimen Plasma specimen Performing Organization Address [facility] [address] PATHOLOGY AND GENOMIC MEDICINE * Troponin (03/05/2018 10:15 AM CDT) Troponin <0.30 0.00 - 0.30 ng/mL [facility] DEPARTMENT OF Comment: PATHOLOGY AND 0.30 - 1.49 GENOMIC MEDICINE ng/mlMay indicate increased risk of acute coronary syndrome. >=1.5 ng/ml Consistent with acute myocardial infarction. The diagnostic value of a single normal or non-diagnostic result is questionable.Serial samples at 2-6 hour intervals are required to rule out acute myocardial injury. Specimen Plasma specimen Performing Organization Address [facility] [address] PATHOLOGY AND [employer] MEDICINE * Partial thromboplastin time, activated (03/05/2018 10:15 AM CDT) PTT 29.9 23.0 - 36.0 sec [facility] DEPARTMENT OF Comment: PATHOLOGY AND PTT therapeutic range for GENOMIC MEDICINE unfractionated heparin is 61.0-112.0 seconds which corresponds to Anti-Xa 0.3-0.7 U/ml. Specimen Blood Performing Organization Address [facility]/[place] [address] PATHOLOGY AND [employer] MEDICINE * Prothrombin time with INR (03/05/2018 10:15 AM CDT) Prothrombin time 14.1 12.0 - 15.0 sec [facility] DEPARTMENT OF PATHOLOGY AND GENOMIC MEDICINE INR 1.1 [facility] DEPARTMENT OF Comment: PATHOLOGY AND The International Normalized GENOMIC MEDICINE Ratio (INR) is a therapeutic monitoring tool for patients who are stable on oral anticoagulant therapy. An INR of 2.0-3.0 is suggested for deep vein thrombosis/pulmonary embolism. Specimen Blood Performing Organization Address [facility] [address] PATHOLOGY AND GENOMIC MEDICINE * D-dimer (03/05/2018 10:15 AM CDT) D-dimer 0.92 (H) 0.00 - 0.40 ug/mL FEU [facility] DEPARTMENT OF Comment: PATHOLOGY AND Units [...] and malignancies. Specimen Blood Performing Organization Address City/[facility] Phone Number [address] [address] PATHOLOGY AND [employer] MEDICINE * CBC with platelet and differential (03/05/2018 10:15 AM CDT) WBC 6.28 4.50 - 11.00 k/uL [facility] DEPARTMENT OF PATHOLOGY AND GENOMIC MEDICINE RBC 3.96 (L) 4.20 - 5.50 m/uL [facility] DEPARTMENT OF PATHOLOGY AND GENOMIC MEDICINE HGB 11.5 (L) 12.0 - 16.0 g/dL [facility] DEPARTMENT OF PATHOLOGY AND GENOMIC MEDICINE HCT 35.4 (L) 37.0 - 47.0 % [facility] DEPARTMENT OF PATHOLOGY AND GENOMIC MEDICINE MCV 89.4 82.0 - 100.0 fL [facility] DEPARTMENT OF PATHOLOGY AND GENOMIC MEDICINE MCH 29.0 27.0 - 34.0 pg [facility] DEPARTMENT OF PATHOLOGY AND GENOMIC MEDICINE MCHC 32.5 31.0 - 37.0 g/dL [facility] DEPARTMENT OF PATHOLOGY AND GENOMIC MEDICINE RDW - SD 45.1 37.0 - 55.0 fL [facility] DEPARTMENT OF PATHOLOGY AND GENOMIC MEDICINE MPV 8.9 8.8 - 13.2 fL [facility] DEPARTMENT OF PATHOLOGY AND GENOMIC MEDICINE Platelet count 241 150 - 400 k/uL [facility] DEPARTMENT OF PATHOLOGY AND GENOMIC MEDICINE Nucleated RBC 0.00 /100 WBC [facility] DEPARTMENT OF PATHOLOGY AND GENOMIC MEDICINE Neutrophils 66.0 39.0 - 69.0 % [facility] DEPARTMENT OF PATHOLOGY AND GENOMIC MEDICINE Lymphocytes 24.8 (L) 25.0 - 45.0 % [facility] DEPARTMENT OF PATHOLOGY AND GENOMIC MEDICINE Monocytes 6.1 0.0 - 10.0 % [facility] DEPARTMENT OF PATHOLOGY AND GENOMIC MEDICINE Eosinophils 2.2 0.0 - 5.0 % [facility] DEPARTMENT OF PATHOLOGY AND GENOMIC MEDICINE Basophils 0.6 0.0 - 1.0 % [facility] DEPARTMENT OF PATHOLOGY AND GENOMIC MEDICINE Immature granulocytes 0.3Comment: "Immature 0.0 - 1.0 % [facility] DEPARTMENT OF granulocytes" (promyelocytes, PATHOLOGY AND myelocytes, metamyelocytes) GENOMIC MEDICINE Specimen Blood Performing Organization Address City/[facility] Phone Number [facility] [place] [address] PATHOLOGY AND GENOMIC MEDICINE * Type and screen (03/05/2018 10:15 AM CDT) ABO grouping O [facility] DEPARTMENT OF PATHOLOGY AND GENOMIC MEDICINE Rh type POS [facility] DEPARTMENT OF PATHOLOGY AND GENOMIC MEDICINE Antibody screen (gel) NEG [facility] DEPARTMENT OF PATHOLOGY AND GENOMIC MEDICINE Specimen Blood Performing Organization Address [facility] Phone Number [facility] [place] [address] PATHOLOGY AND GENOMIC MEDICINE * B natriuretic peptide (03/05/2018 10:15 AM CDT) BNP 11 0 - 100 pg/mL [facility] DEPARTMENT OF PATHOLOGY AND GENOMIC MEDICINE Specimen Blood Performing Organization Address City/[facility]/Zipcode Phone Number [facility] [place] [address] PATHOLOGY AND [facility] MEDICINE * Lipase level (03/05/2018 10:15 AM CDT) Lipase 20 13 - 60 U/L [facility] DEPARTMENT OF PATHOLOGY AND GENOMIC MEDICINE Specimen Plasma specimen Performing Organization Address City/[facility]/Zipcode Phone Number [facility] [place] [address] PATHOLOGY AND GENOMIC MEDICINE * Basic metabolic panel (03/05/2018 10:15 AM CDT) Sodium 141 135 - 148 mEq/L [facility] DEPARTMENT OF PATHOLOGY AND GENOMIC MEDICINE Potassium 4.5 3.5 - 5.0 mEq/L [facility] DEPARTMENT OF PATHOLOGY AND GENOMIC MEDICINE Chloride 103 98 - 112 mEq/L [facility] DEPARTMENT OF PATHOLOGY AND GENOMIC MEDICINE CO2 27 24 - 31 mEq/L [facility] DEPARTMENT OF PATHOLOGY AND GENOMIC MEDICINE Anion gap 11@ANIO 7 - 15 mEq/L [facility] DEPARTMENT OF PATHOLOGY AND GENOMIC MEDICINE BUN 10 6 - 20 mg/dL [facility] DEPARTMENT OF PATHOLOGY AND GENOMIC MEDICINE Creatinine 0.84 0.50 - 0.90 mg/dL [facility] DEPARTMENT OF PATHOLOGY AND GENOMIC MEDICINE Glucose 85 65 - 99 mg/dL [facility] DEPARTMENT OF PATHOLOGY AND GENOMIC MEDICINE Calcium 8.3 8.3 - 10.2 mg/dL [facility] DEPARTMENT OF PATHOLOGY AND GENOMIC MEDICINE Specimen Plasma specimen Performing Organization Address City/[facility] [place] Number [place] [address] PATHOLOGY AND GENOMIC MEDICINE * XR Chest 1 Vw (03/05/2018 10:02 AM CDT) Narrative Performed At EXAM: RADIANT XR CHEST 1 VW INDICATION: Chest painACS suspected COMPARISON: None. IMPRESSION: Surgical clips right upper quadrant. Minimal linear opacity lateral aspect left lower lung, discoid atelectasis versus scar/fibrosis. No consolidation, pleural effusion, pneumothorax. Heart size is normal. Minimal degenerative changes thoracic spine. [facility]-[id number] Procedure Note Interface, Radiology Results Incoming - 03/05/2018 10:06 AM CDT EXAM: XR CHEST 1 VW INDICATION: Chest pain ACS suspected COMPARISON: None. IMPRESSION: Surgical clips right upper quadrant. Minimal linear opacity lateral aspect left lower lung, discoid atelectasis versus scar/fibrosis. No consolidation, pleural effusion, pneumothorax. Heart size is normal. Minimal degenerative changes thoracic spine. [facility]-[id number] Performing Organization Address City/[facility] Phone Number [facility] [address] [place] [address] * XR Abdomen 1 Vw (03/05/2018 10:02 [...] are seen in the right upper quadrant. [id number] Procedure Note Hm Interface, Radiology Results Incoming [...] are seen in the right upper quadrant. [id number] Performing Organization Address [facility] Phone Number [employer] [address] [place] [address] * ECG 12 lead (03/05/2018 9:02 AM [...] ECG-No previous ECGs available- Performing Organization Address City/[facility] Phone Number [employer] [address] [place] [address] after 08/04/2017 Insurance Payer Benefit Subscriber ID Type Phone Address Plan / Group [employer] xxxxxxxx HMO STAR[employer]PLUS DEDRICK Advance Directives Patient has advance care planning documents on file. For more information, ivan rousseau contact: Jai Zee [address] [place] [address]
--- OUTSIDE RECORDS SUMMARY | 2018-08-05 08:03 | XMS REPORT ---
Author Author Admin, [place] Organization [facility] Address [address] [address] Phone Allergies, Adverse Reactions, Alerts Allergy Name [...] Mouth daily as needed for anxiety CLONAZEPAM 62062585845 Active Bogdan Hand MD Active TRAZODONE HCL 150 MG ORAL TABLET Take one tablet By Mouth at bedtime TRAZODONE HCL 86315877652 Active Bogdan Hand MD Active AMITRIPTYLINE HCL 150 MG ORAL TABLET Take two tablets By Mouth at bedtime AMITRIPTYLINE HCL 56778505356 Active Bogdan Hand MD Active PRAZOSIN HCL 5 MG ORAL CAPSULE Take 3 capsules By Mouth at bedtime PRAZOSIN HCL 66330325459 Active Bogdan Hand MD Active LEXAPRO 20 MG ORAL TABLET Take one tablet By Mouth daily ESCITALOPRAM OXALATE 04816097646 Active Bogdan Hand MD Active VALIUM 10 MG ORAL TABLET Take one tablet By Mouth at bedtime for breakthrough anxiety DIAZEPAM 10628651198 Active Bogdan Hand MD Active DIAZEPAM 5 MG TABS TAKE 1 TABLET BY MOUTH AT BEDTIME NEEDED FOR BREAKTHROUGH ANXIETY DIAZEPAM 03646719635 Active Bogdan Hand MD Active WELLBUTRIN XL 150 MG ORAL TABLET EXTENDED RELEASE 24 HOUR Take one tablet By Mouth daily WELLBUTRIN XL 150 MG ORAL TABLET EXTENDED RELEASE 24 HOUR BUPROPION HCL Inactive LUNESTA 3 MG ORAL TABLET Take one tablet By Mouth at bedtime LUNESTA 3 MG ORAL TABLET 943379 ESZOPICLONE Inactive ZYPREXA 10 MG ORAL TABLET Take one tablet By Mouth daily ZYPREXA 10 MG ORAL TABLET 380277 OLANZAPINE Inactive LUNESTA 3 MG ORAL TABLET Take one tablet at bedtime LUNESTA 3 MG ORAL TABLET 613952 ESZOPICLONE Inactive WELLBUTRIN XL 150 MG ORAL TABLET EXTENDED RELEASE 24 HOUR Take one tablet By Mouth daily BUPROPION HCL 60670061779 No Longer Active Bogdan Hand MD Active LUNESTA 3 MG ORAL TABLET Take one tablet By Mouth at bedtime ESZOPICLONE 50359205302 No Longer Active Bogdan Hand MD Active TEMAZEPAM 30 MG ORAL CAPSULE Take one capsule By Mouth By Mouth at bedtime TEMAZEPAM 92229894267 No Longer Active Bogdan Hand MD Active ZYPREXA 10 MG ORAL TABLET Take one tablet By Mouth daily OLANZAPINE 60408278482 No Longer Active Bogdan Hand MD Active LORAZEPAM 2 MG ORAL TABLET Take one tablet By Mouth TID as needed for anxiety LORAZEPAM 61833930890 No Longer Active Bogdan Hand MD Active LUNESTA 3 MG ORAL TABLET Take one tablet at bedtime ESZOPICLONE 07943118007 No Longer Active Bogdan Hand MD Active [...] Encounters Date Encounter Provider Code Facility 10:20:33 RECORDS CLERK Est Patient Exp Problem - [id number] Bogdan Hand MD CPT-17472 [facility] 10:36:05 RECORDS CLERK Est Patient Detailed - 73501 Bogdan Hand MD CPT-10766 [facility] 11:34:27 RECORDS CLERK Est Patient Detailed - 09474 Bogdan Hand MD CPT-80032 [facility] 10:47:07 CDT Est Patient Exp Problem - 56324 Bogdan Hand MD CPT-11492 [facility] 08:46:49 CDT Est Patient Exp Problem - 33594 Bogdan Hand MD CPT-00200 [facility] 08:33:08 CDT Est Patient Detailed - 74546 Bogdan Hand MD CPT-29041 [facility] 08:31:14 CDT Est Patient Detailed - 34994 Bogdan Hand MD CPT-84187 [facility] 13:41:13 CDT Est Patient Detailed - 18596 Bogdan Hand MD CPT-60228 [facility] 19:16:18 CDT Est Patient Detailed - 96524 Bogdan Hand MD CPT-67068 [facility] 09:08:54 CDT Est Patient Detailed - 70035 Bogdan Hand MD CPT-21652 [facility] 08:21:45 CDT Est Patient Detailed - 67580 Bogdan Hand MD CPT-43049 [facility] Procedures Code Procedure Name Date Entry Date Standard Description CPT-84354 Psychotherapy 45 (38-52*) min - 22806 (with patient and/or family member) 13:05:22 CDT CPT-92104 Diagnostic evaluation (no medical) - 50454 10:06:21 CDT CPT-39022 Diagnostic evaluation with medical - 23269 20:46:14 CDT
--- OUTSIDE RECORDS SUMMARY | 2018-08-05 08:03 | XMS REPORT ---
Author Author Admin, [place] Organization [facility] Address [address] [address] Phone Allergies, Adverse Reactions, Alerts Allergy Name [...] LEXAPRO 10 MG ORAL TABLET Take one tablet By Mouth daily with the 20mg tablet ESCITALOPRAM OXALATE 47203119135 Active Bogdan Hand MD Active KLONOPIN 2 MG ORAL TABLET Take one tablet By Mouth daily as needed for anxiety CLONAZEPAM 10081349274 Active Bogdan Hand MD Active TRAZODONE HCL 300 MG ORAL TABLET Take one tablet By Mouth at bedtime TRAZODONE HCL 72045249161 Active Bogdan Hand MD Active AMITRIPTYLINE HCL 150 MG ORAL TABLET Take two tablets By Mouth at bedtime AMITRIPTYLINE HCL 21696612377 Active Bogdan Hand MD Active PRAZOSIN HCL 5 MG ORAL CAPSULE Take 3 capsules By Mouth at bedtime PRAZOSIN HCL 00184105907 Active Bogdan Hand MD Active LEXAPRO 20 MG ORAL TABLET Take one tablet By Mouth daily with the 10mg tablet ESCITALOPRAM OXALATE 46122908670 Active Bogdan Hand MD Active VALIUM 10 MG ORAL TABLET Take one tablet By Mouth at bedtime for breakthrough anxiety DIAZEPAM 27924054365 Active Bogdan Hand MD Active WELLBUTRIN XL 150 MG ORAL TABLET EXTENDED RELEASE 24 HOUR Take one tablet By Mouth daily WELLBUTRIN XL 150 MG ORAL TABLET EXTENDED RELEASE 24 HOUR BUPROPION HCL Inactive LUNESTA 3 MG ORAL TABLET Take one tablet By Mouth at bedtime LUNESTA 3 MG ORAL TABLET 986959 ESZOPICLONE Inactive ZYPREXA 10 MG ORAL TABLET Take one tablet By Mouth daily ZYPREXA 10 MG ORAL TABLET 269231 OLANZAPINE Inactive LUNESTA 3 MG ORAL TABLET Take one tablet at bedtime LUNESTA 3 MG ORAL TABLET 826496 ESZOPICLONE Inactive DIAZEPAM 5 MG TABS TAKE 1 TABLET BY MOUTH AT BEDTIME NEEDED FOR BREAKTHROUGH ANXIETY DIAZEPAM 5 MG TABS 611725 DIAZEPAM Inactive WELLBUTRIN XL 150 MG ORAL TABLET EXTENDED RELEASE 24 HOUR Take one tablet By Mouth daily BUPROPION HCL 82174070024 No Longer Active Bogdan Hand MD Active LUNESTA 3 MG ORAL TABLET Take one tablet By Mouth at bedtime ESZOPICLONE 91963394955 No Longer Active Bogdan Hand MD Active TEMAZEPAM 30 MG ORAL CAPSULE Take one capsule By Mouth By Mouth at bedtime TEMAZEPAM 93140736934 No Longer Active Bogdan Hand MD Active ZYPREXA 10 MG ORAL TABLET Take one tablet By Mouth daily OLANZAPINE 94414277341 No Longer Active Bogdan Hand MD Active LORAZEPAM 2 MG ORAL TABLET Take one tablet By Mouth TID as needed for anxiety LORAZEPAM 81519467628 No Longer Active Bogdan Hand MD Active LUNESTA 3 MG ORAL TABLET Take one tablet at bedtime ESZOPICLONE 70724748954 No Longer Active Bogdan Hand MD Active DIAZEPAM 5 MG TABS TAKE 1 TABLET BY MOUTH AT BEDTIME NEEDED FOR BREAKTHROUGH ANXIETY DIAZEPAM 78484199057 No Longer Active Bogdan Hand MD Active Vital Signs Date Name Value Unit Range Description blood pressure, diastolic 66 mm[Hg] BP [place] blood pressure, systolic 105 mm[Hg] BP sys height E&M 64 [in_us] Bdy height pulse rate E&M 99 /min Heart rate weight E&M 234 [lb_av] Weight Measured blood pressure, diastolic 68 mm[Hg] BP [place]i blood pressure, systolic 104 mm[Hg] BP sys height E&M 64 [in_us] Bdy height pulse rate E&M 103 /min Heart rate weight E&M 234.50 [lb_av] Weight Measured blood pressure, diastolic 73 [...] Measured Encounters Date Encounter Provider Code Facility 14:54:55 RELIEF COOK Est Patient Detailed - [id number] Bogdan Hand MD CPT-96166 [facility] 09:55:59 RELIEF COOK Est Patient Detailed - [id number] Bogdan Hand MD CPT-03064 [facility] 10:20:33 RELIEF COOK Est Patient Exp Problem - 06671 Bogdan Hand MD CPT-11173 [facility] 10:36:05 RELIEF COOK Est Patient Detailed - 16563 Bogdan Hand MD CPT-90441 [facility] 11:34:27 RELIEF COOK Est Patient Detailed - 03153 Bogdan Hand MD CPT-55571 [facility] 10:47:07 CDT Est Patient Exp Problem - 32632 Bogdan Hand MD CPT-72340 [facility] 08:46:49 CDT Est Patient Exp Problem - 99528 Bogdan Hand MD CPT-05137 [facility] 08:33:08 CDT Est Patient Detailed - [id number] Bogdan Hand MD CPT-84730 [facility] 08:31:14 CDT Est Patient Detailed - 29139 Bogdan Hand MD CPT-44419 [facility] 13:41:13 CDT Est Patient Detailed - 29909 Bogdan Hand MD CPT-51742 [facility] 19:16:18 CDT Est Patient Detailed - [id number] Bogdan Hand MD CPT-69793 [facility] 09:08:54 CDT Est Patient Detailed - 15270 Bogdan Hand MD CPT-46388 [facility] 08:21:45 CDT Est Patient Detailed - [id number] Bogdan Hand MD CPT-46465 [facility] Procedures Code Procedure Name Date Entry Date Standard Description CPT-21446 Psychotherapy 45 (38-52*) min - 70444 (with patient and/or family member) 13:05:22 CDT CPT-87415 Diagnostic evaluation (no medical) - 11050 10:06:21 CDT CPT-59464 Diagnostic evaluation with medical - 16531 20:46:14 CDT
--- OUTSIDE RECORDS SUMMARY | 2018-08-05 08:03 | XMS REPORT | Continuity of Care Document ---
Author Author [facility] Interface Address Unknown Phone Unavailable Problems Problem Status Onset Date Classification Date Reported Comments Source DEPRESSIVE DISORDER, MAJOR, RECURRENT EPISODE, W/ PSYCHOTIC FEATURES Active 10/21/2017 Diagnosis 08/03/2018 [facility] PTSD Active 08/28/2017 Diagnosis 08/03/2018 [facility] PANIC DISORDER Active 08/28/2017 Diagnosis 08/03/2018 [facility] INSOMNIA DISORDER, PERSISTENT Active 08/28/2017 Diagnosis 08/03/2018 [facility] Pancreatitis, acute Active Problem 06/15/2018 [facility] Medications Medication Details Route Status Patient Instructions Ordering Provider Order Date Source LEXAPRO 10 MG ORAL TABLET Take one tablet By Mouth daily with the 20mg tablet Active Take one tablet By Mouth daily with the 20mg tablet 07/28/2018 [facility] DIAZEPAM TAKE 1 TABLET BY MOUTH AT BEDTIME NEEDED FOR BREAKTHROUGH ANXIETY No Longer Active TAKE 1 TABLET BY MOUTH AT BEDTIME NEEDED FOR BREAKTHROUGH ANXIETY 07/07/2018 [facility] KLONOPIN 2 MG ORAL TABLET Take one tablet By Mouth daily as needed for anxiety Active Take one tablet By Mouth daily as needed for anxiety 04/14/2018 [facility] TRAZODONE HCL Take one tablet By Mouth at bedtime Active Take one tablet By Mouth at bedtime 04/14/2018 [facility] TRAZODONE HCL Take one tablet By Mouth at bedtime Active Take one tablet By Mouth at bedtime 04/14/2018 [facility] Levofloxacin (Levaquin) 500 Mg Tablet Daily for 10 Active [facility]g 03/04/2018 [facility] Levofloxacin (Levaquin) 500 Mg Tablet, 500 Mg Oral Daily for 10 Active [facility] 03/04/2018 [facility] Levofloxacin (Levaquin) 500 Mg Tablet Daily for 10 Active [facility] 03/04/2018 [facility] Cephalexin Monohydrate (Keflex) 500 Mg Capsule Every 6 Hours Active [facility] 01/21/2018 [facility] Prednisone 20 Mg Tab Daily Active [facility] 01/21/2018 [facility] Cephalexin Monohydrate (Keflex) 500 Mg Capsule, 500 Mg Oral Every 6 Hours Active [facility] 01/21/2018 [facility] Prednisone 20 Mg Tab, 40 Mg Oral Daily Active [facility] 01/21/2018 [facility] Cephalexin Monohydrate (Keflex) 500 Mg Capsule Every 6 Hours Active [facility] 01/21/2018 [facility] Prednisone 20 Mg Tab Daily Active [facility]g 01/21/2018 [facility] WELLBUTRIN XL 150 MG ORAL [...] By Mouth daily with the 10mg tablet Active Take one tablet By Mouth daily with the 10mg tablet 08/28/2017 [facility] LORAZEPAM Take one tablet By [...] 8 Hours as needed for Pain Active [facility] 08/24/2017 [facility] Cyclobenzaprine Hcl 10 Mg Tablet, 5 Mg Oral Three Times A Day Active [facility] 08/24/2017 [facility] Ondansetron (Zofran Odt) 4 Mg Tab.rapdis, 4 Mg Oral Q4- 6H Prn Active [facility] 08/24/2017 [facility] Polyethylene Glycol 3350 (Miralax) 17 Gm Powd.pack, 17 Gm Oral Twice A Day Active [facility] 08/24/2017 [facility] Senna Fruit/Conc/Doc Sod/Bisa 1 Ea Tab, 2 Ea Oral Bedtime Active [facility] 08/24/2017 [facility] Acetaminophen With Codeine (Tylenol With Codeine #3 Tablet) 1 Each Tablet, 300 Mg Oral Every 8 Hours as needed for Pain Active [facility] 08/24/2017 [facility] Cyclobenzaprine Hcl 10 Mg Tablet, 5 Mg Oral Three Times A Day Active [facility] 08/24/2017 [facility] Ondansetron (Zofran Odt) 4 Mg Tab.rapdis, 4 Mg Oral Q4- 6H Prn Active [facility] 08/24/2017 [facility] Polyethylene Glycol 3350 (Miralax) 17 Gm Powd.pack, 17 Gm Oral Twice A Day Active [facility] 08/24/2017 [facility] Amitriptyline Hcl 150 Mg Tablet Bedtime Active [facility] Diazepam 10 Mg Tablet Bedtime Active [facility] DIAZEPAM TAKE 1 TABLET BY MOUTH AT BEDTIME NEEDED FOR BREAKTHROUGH ANXIETY Active TAKE 1 TABLET BY MOUTH AT BEDTIME NEEDED FOR BREAKTHROUGH ANXIETY [facility] Allergies, Adverse Reactions, Alerts Substance Category Reaction Severity Reaction type Status Date Reported Comments Source Codeine Mild Allergy to Substance Active 06/15/2018 [facility] Tramadol Unknown Allergy to Substance Active 06/15/2018 [facility] Immunizations Immunization Date Given Site Status Last Updated Comments Source Results Order Name Results Value Reference Range Date Interpretation Comments Source Blood leukocytes automated count (number/volume) 4.92 4.8 - 10.8 06/15/2018 [facility] Blood erythrocytes automated count (number/volume) 4.31 3.6 - 5.1 06/15/2018 [facility] Blood hemoglobin measurement (moles/volume) 12.7 12.0 - 16.0 06/15/2018 [facility] Automated blood hematocrit (volume fraction) 38.1 34.2 - 44.1 06/15/2018 [facility] Automated erythrocyte mean corpuscular volume 88.4 81 - 99 06/15/2018 [facility] Automated erythrocyte mean corpuscular hemoglobin (mass per erythrocyte) 29.5 28 - 32 06/15/2018 [facility] Automated erythrocyte mean corpuscular hemoglobin concentration measurement (mass/volume) 33.3 31 - 35 06/15/2018 [facility] RDW BldCo-Rto 13.5 11.7 - 14.4 06/15/2018 [facility] Automated blood platelet count (count/volume) 297 140 - 360 06/15/2018 [facility] Automated blood segmented neutrophil count as percentage of total leukocytes 60.6 38.7 - 80.0 06/15/2018 [facility] Automated blood lymphocyte count as percentage ot total leukocytes 28.9 18.0 - 39.1 06/15/2018 [facility] Automated blood monocyte count as percentage of total leukocytes 6.7 4.4 - 11.3 06/15/2018 [facility] Automated blood eosinophil count as percentage of total leukocytes 1.6 0.0 - 6.0 06/15/2018 [facility] Automated blood basophil count as percentage of total leukocytes 1.0 0.0 - 1.0 06/15/2018 [facility] IM GRANULOCYTES % 1.2 0.0 - 1.0 06/15/2018 [facility] Automated blood neutrophil count 3.0 2.1 - 6.9 06/15/2018 [facility] Blood lymphocytes count (number/volume) 1.4 1.0 - 3.2 06/15/2018 [facility] Blood monocytes automated count (number/volume) 0.3 0.2 - 0.8 06/15/2018 [facility] Automated blood eosinophil count 0.1 0.0 - 0.4 06/15/2018 [facility] Automated blood basophil count (count/volume) 0.1 0.0 - 0.1 06/15/2018 [facility] Absolute Immature Granulocyte (auto 0.06 0 - 0.1 06/15/2018 [facility] Urine color determination YELLOW YELLOW 06/15/2018 [facility] Urine clarity CLEAR CLEAR 06/15/2018 [facility] Specific gravity of Urine by Test strip 1.010 1.010 - 1.025 06/15/2018 [facility] Urine pH measurement by automated test strip 6 5 - 7 06/15/2018 [facility] Urine leukocyte esterase detection by dipstick TRACE NEGATIVE 06/15/2018 [facility] Urine nitrite detection NEGATIVE NEGATIVE 06/15/2018 [facility] Urine protein measurement by test strip (mass/volume) NEGATIVE NEGATIVE 06/15/2018 [facility] Urine glucose detection NEGATIVE NEGATIVE 06/15/2018 [facility] Urine ketones detection by automated test strip NEGATIVE NEGATIVE 06/15/2018 [facility] Urine urobilinogen measurement by test strip (mass/volume) 0.2 0.2 - 1 06/15/2018 [facility] Urine total bilirubin measurement (mass/volume) NEGATIVE NEGATIVE 06/15/2018 [facility] Urine erythrocytes detection NEGATIVE NEGATIVE 06/15/2018 [facility] Automated urine sediment leukocyte count by microscopy (number/high power field) 6-10 0 - 5 06/15/2018 [facility] Erythrocytes detection in urine sediment by light microscopy NONE 0 - 5 06/15/2018 [facility] Bacteria detection in urine sediment by light microscopy MODERATE NONE 06/15/2018 [facility] Epithelial cells detection in urine sediment by light microscopy RARE NONE 06/15/2018 [facility] Serum or plasma sodium measurement (moles/volume) 138 136 - 145 06/15/2018 [facility] Serum or plasma potassium measurement (moles/volume) 3.7 3.5 - 5.1 06/15/2018 [facility] Serum or plasma chloride measurement (moles/volume) 108 98 - 107 06/15/2018 [facility] Serum or plasma carbon dioxide, total measurement (moles/volume) 23 22 - 29 06/15/2018 [facility] Serum or plasma anion gap 10.7 8 - 16 06/15/2018 [facility] Serum or plasma urea nitrogen measurement (mass/volume) 9 7 - 26 06/15/2018 [facility] Serum or plasma creatinine measurement (mass/volume) 0.99 0.57 - 1.11 06/15/2018 [facility] Serum or plasma urea nitrogen/creatinine mass ratio 9 6 - 25 06/15/2018 [facility] Estimated glomerular filtration rate (GFR) determination > 60 60 06/15/2018 [facility] Glucose measurement 76 74 - 118 06/15/2018 [facility] Serum or plasma calcium measurement (mass/volume) 8.5 8.4 - 10.2 06/15/2018 [facility] Serum or plasma total bilirubin measurement (mass/volume) 0.2 0.2 - 1.2 06/15/2018 [facility] Aspartate Amino Transf (AST/SGOT) 17 5 - 34 06/15/2018 [facility] Serum or plasma alanine aminotransferase measurement (enzymatic activity/volume) 19 0 - 55 06/15/2018 [facility] Serum or plasma protein measurement (mass/volume) 6.3 6.5 - 8.1 06/15/2018 [facility] Serum or plasma albumin measurement (mass/volume) 3.6 3.5 - 5.0 06/15/2018 [facility] Plasma globulin measurement (mass/volume) 2.7 2.3 - 3.5 06/15/2018 [facility] Serum or plasma albumin/globulin mass ratio 1.3 0.8 - 2.0 06/15/2018 [facility] Serum or plasma alkaline phosphatase measurement (enzymatic activity/volume) 87 40 - 150 06/15/2018 [facility] Serum or plasma amylase measurement (enzymatic activity/volume) 101 25 - 125 06/15/2018 [facility] Serum or plasma lipase measurement (enzymatic activity/volume) 30 8 - 78 06/15/2018 [facility] Urine opiates screening test NEGATIVE NEGATIVE 06/15/2018 [facility] Barbiturates screen, urine NEGATIVE NEGATIVE 06/15/2018 [facility] Urine phencyclidine detection by screening method NEGATIVE NEGATIVE 06/15/2018 [facility] Urine amphetamines detection by screen method > 1000 ng/mL NEGATIVE NEGATIVE 06/15/2018 [facility] Urine Methamphetamines Screen NEGATIVE NEGATIVE 06/15/2018 [facility] Urine benzodiazepines detection by screening method POSITIVE NEGATIVE 06/15/2018 [facility] Urine cocaine measurement (mass/volume) POSITIVE NEGATIVE 06/15/2018 [facility] Urine cannabinoids detection by screening method POSITIVE NEGATIVE 06/15/2018 [facility] Urine methadone screen NEGATIVE NEGATIVE 06/15/2018 [facility] Blood leukocytes automated count (number/volume) 5.42 4.8 - 10.8 06/03/2018 [facility] Blood erythrocytes automated count (number/volume) 4.21 3.6 - 5.1 06/03/2018 [facility] Blood hemoglobin measurement (moles/volume) 12.5 12.0 - 16.0 06/03/2018 [facility] Automated blood hematocrit (volume fraction) 36.6 34.2 - 44.1 06/03/2018 [facility] Automated erythrocyte mean corpuscular volume 86.9 81 - 99 06/03/2018 [facility] Automated erythrocyte mean corpuscular hemoglobin (mass per erythrocyte) 29.7 28 - 32 06/03/2018 [facility] Automated erythrocyte mean corpuscular hemoglobin concentration measurement (mass/volume) 34.2 31 - 35 06/03/2018 [facility] RDW BldCo-Rto 13.3 11.7 - 14.4 06/03/2018 [facility] Automated blood platelet count (count/volume) 237 140 - 360 06/03/2018 [facility] Automated blood segmented neutrophil count as percentage of total leukocytes 65.3 38.7 - 80.0 06/03/2018 [facility] Automated blood lymphocyte count as percentage ot total leukocytes 26.9 18.0 - 39.1 06/03/2018 [facility] Automated blood monocyte count as percentage of total leukocytes 5.2 4.4 - 11.3 06/03/2018 [facility] Automated blood eosinophil count as percentage of total leukocytes 1.5 0.0 - 6.0 06/03/2018 [facility] Automated blood basophil count as percentage of total leukocytes 0.7 0.0 - 1.0 06/03/2018 [facility] IM GRANULOCYTES % 0.4 0.0 - 1.0 06/03/2018 [facility] Automated blood neutrophil count 3.5 2.1 - 6.9 06/03/2018 [facility] Blood lymphocytes count (number/volume) 1.5 1.0 - 3.2 06/03/2018 [facility] Blood monocytes automated count (number/volume) 0.3 0.2 - 0.8 06/03/2018 [facility] Automated blood eosinophil count 0.1 0.0 - 0.4 06/03/2018 [facility] Automated blood basophil count (count/volume) 0.0 0.0 - 0.1 06/03/2018 [facility] Absolute Immature Granulocyte (auto 0.02 0 - 0.1 06/03/2018 [facility] Serum or plasma sodium measurement (moles/volume) 134 136 - 145 06/03/2018 [facility] Serum or plasma potassium measurement (moles/volume) 3.7 3.5 - 5.1 06/03/2018 [facility] Serum or plasma chloride measurement (moles/volume) 103 98 - 107 06/03/2018 [facility] Serum or plasma carbon dioxide, total measurement (moles/volume) 24 22 - 29 06/03/2018 [facility] Serum or plasma anion gap 10.7 8 - 16 06/03/2018 [facility] Serum or plasma urea nitrogen measurement (mass/volume) 10 7 - 26 06/03/2018 [facility] Serum or plasma creatinine measurement (mass/volume) 0.82 0.57 - 1.11 06/03/2018 [facility] Serum or plasma urea nitrogen/creatinine mass ratio 12 6 - 25 06/03/2018 [facility] Estimated glomerular filtration rate (GFR) determination > 60 60 06/03/2018 [facility] Glucose measurement 96 74 - 118 06/03/2018 [facility] Serum or plasma calcium measurement (mass/volume) 8.9 8.4 - 10.2 06/03/2018 [facility] Serum or plasma magnesium measurement (mass/volume) 1.9 1.3 - 2.1 06/03/2018 [facility] Serum or plasma total bilirubin measurement (mass/volume) 0.5 0.2 - 1.2 06/03/2018 [facility] Aspartate Amino Transf (AST/SGOT) 14 5 - 34 06/03/2018 [facility] Serum or plasma alanine aminotransferase measurement (enzymatic activity/volume) 19 0 - 55 06/03/2018 [facility] Serum or plasma protein measurement (mass/volume) 6.3 6.5 - 8.1 06/03/2018 [facility] Serum or plasma albumin measurement (mass/volume) 3.5 3.5 - 5.0 06/03/2018 [facility] Plasma globulin measurement (mass/volume) 2.8 2.3 - 3.5 06/03/2018 [facility] Serum or plasma albumin/globulin mass ratio 1.3 0.8 - 2.0 06/03/2018 [facility] Serum or plasma alkaline phosphatase measurement (enzymatic activity/volume) 84 40 - 150 06/03/2018 [facility] Serum or plasma magnesium measurement (mass/volume) 1.9 1.3 - 2.1 06/03/2018 [facility] Urine color determination YELLOW YELLOW 06/03/2018 [facility] Urine clarity SL CLOUDY CLEAR 06/03/2018 [facility] Specific gravity of Urine by Test strip 1.010 1.010 - 1.025 06/03/2018 [facility] Urine pH measurement by automated test strip 6.5 5 - 7 06/03/2018 [facility] Urine leukocyte esterase detection by dipstick TRACE NEGATIVE 06/03/2018 [facility] Urine nitrite detection NEGATIVE NEGATIVE 06/03/2018 [facility] Urine protein measurement by test strip (mass/volume) NEGATIVE NEGATIVE 06/03/2018 [facility] Urine glucose detection NEGATIVE NEGATIVE 06/03/2018 [facility] Urine ketones detection by automated test strip NEGATIVE NEGATIVE 06/03/2018 [facility] Urine urobilinogen measurement by test strip (mass/volume) 0.2 0.2 - 1 06/03/2018 [facility] Urine total bilirubin measurement (mass/volume) NEGATIVE NEGATIVE 06/03/2018 [facility] Urine erythrocytes detection NEGATIVE NEGATIVE 06/03/2018 [facility] Automated urine sediment leukocyte count by microscopy (number/high power field) 0-5 0 - 5 06/03/2018 [facility] Erythrocytes detection in urine sediment by light microscopy NONE 0 - 5 06/03/2018 [facility] Bacteria detection in urine sediment by light microscopy MODERATE NONE 06/03/2018 [facility] Epithelial cells detection in urine sediment by light microscopy RARE NONE 06/03/2018 [facility] Urine human chorionic gonadotropin (hCG) detection NEGATIVE NEGATIVE 06/03/2018 [facility] Urine human chorionic gonadotropin (hCG) detection NEGATIVE NEGATIVE 06/03/2018 [facility] Urine opiates screening test NEGATIVE NEGATIVE 04/28/2018 [facility] Barbiturates screen, urine NEGATIVE NEGATIVE 04/28/2018 [facility] Urine phencyclidine detection by screening method NEGATIVE NEGATIVE 04/28/2018 [facility] Urine amphetamines detection by screen method > 1000 ng/mL NEGATIVE NEGATIVE 04/28/2018 [facility] Urine Methamphetamines Screen NEGATIVE NEGATIVE 04/28/2018 [facility] Urine benzodiazepines detection by screening method POSITIVE NEGATIVE 04/28/2018 [facility] Urine cocaine measurement (mass/volume) NEGATIVE NEGATIVE 04/28/2018 [facility] Urine cannabinoids detection by screening method POSITIVE NEGATIVE 04/28/2018 [facility] Urine methadone screen NEGATIVE NEGATIVE 04/28/2018 [facility] Serum or plasma lipase measurement (enzymatic activity/volume) 29 8 - 78 04/28/2018 [facility] Automated blood platelet count (count/volume) 249 140 - 360 04/28/2018 [facility] Automated blood segmented neutrophil count as percentage of total leukocytes 63.7 38.7 - 80.0 04/28/2018 [facility] Automated blood lymphocyte count as percentage ot total leukocytes 28.5 18.0 - 39.1 04/28/2018 [facility] Automated blood monocyte count as percentage of total leukocytes 4.6 4.4 - 11.3 04/28/2018 [facility] Automated blood eosinophil count as percentage of total leukocytes 2.2 0.0 - 6.0 04/28/2018 [facility] Automated blood basophil count as percentage of total leukocytes 0.7 0.0 - 1.0 04/28/2018 [facility] IM GRANULOCYTES % 0.3 0.0 - 1.0 04/28/2018 [facility] Automated blood neutrophil count 3.7 2.1 - 6.9 04/28/2018 [facility] Blood lymphocytes count (number/volume) 1.7 1.0 - 3.2 04/28/2018 [facility] Blood monocytes automated count (number/volume) 0.3 0.2 - 0.8 04/28/2018 [facility] Automated blood eosinophil count 0.1 0.0 - 0.4 04/28/2018 [facility] Automated blood basophil count (count/volume) 0.0 0.0 - 0.1 04/28/2018 [facility] Absolute Immature Granulocyte (auto 0.02 0 - 0.1 04/28/2018 [facility] Urine color determination YELLOW YELLOW 04/28/2018 [facility] Urine clarity HAZY CLEAR 04/28/2018 [facility] Specific gravity of Urine by Test strip 1.005 1.010 - 1.025 04/28/2018 [facility] Urine pH measurement by automated test strip 6 5 - 7 04/28/2018 [facility] Urine leukocyte esterase detection by dipstick NEGATIVE NEGATIVE 04/28/2018 [facility] Urine nitrite detection NEGATIVE NEGATIVE 04/28/2018 [facility] Urine protein measurement by test strip (mass/volume) NEGATIVE NEGATIVE 04/28/2018 [facility] Urine glucose detection NEGATIVE NEGATIVE 04/28/2018 [facility] Urine ketones detection by automated test strip NEGATIVE NEGATIVE 04/28/2018 [facility] Urine opiates screening test NEGATIVE NEGATIVE 04/28/2018 [facility] Barbiturates screen, urine NEGATIVE NEGATIVE 04/28/2018 [facility] Urine phencyclidine detection by screening method NEGATIVE NEGATIVE 04/28/2018 [facility] Urine amphetamines detection by screen method > 1000 ng/mL NEGATIVE NEGATIVE 04/28/2018 [facility] Urine Methamphetamines Screen NEGATIVE NEGATIVE 04/28/2018 [facility] Urine benzodiazepines detection by screening method POSITIVE NEGATIVE 04/28/2018 [facility] Urine cocaine measurement (mass/volume) NEGATIVE NEGATIVE 04/28/2018 [facility] Urine cannabinoids detection by screening method POSITIVE NEGATIVE 04/28/2018 [facility] Urine methadone screen NEGATIVE NEGATIVE 04/28/2018 [facility] Urine urobilinogen measurement by test strip (mass/volume) 0.2 0.2 - 1 04/28/2018 [facility] Urine total bilirubin measurement (mass/volume) NEGATIVE NEGATIVE 04/28/2018 [facility] Urine erythrocytes detection NEGATIVE NEGATIVE 04/28/2018 [facility] Automated urine sediment leukocyte count by microscopy (number/high power field) 0-5 0 - 5 04/28/2018 [facility] Erythrocytes detection in urine sediment by light microscopy 0-5 0 - 5 04/28/2018 [facility] Bacteria detection in urine sediment by light microscopy MODERATE NONE 04/28/2018 [facility] Epithelial cells detection in urine sediment by light microscopy MODERATE NONE 04/28/2018 [facility] Serum or plasma sodium measurement (moles/volume) 134 136 - 145 04/28/2018 [facility] Serum or plasma potassium measurement (moles/volume) 3.9 3.5 - 5.1 04/28/2018 [facility] Serum or plasma chloride measurement (moles/volume) 103 98 - 107 04/28/2018 [facility] Serum or plasma carbon dioxide, total measurement (moles/volume) 23 22 - 29 04/28/2018 [facility] Serum or plasma anion gap 11.9 8 - 16 04/28/2018 [facility] Serum or plasma urea nitrogen measurement (mass/volume) 11 7 - 26 04/28/2018 [facility] Serum or plasma creatinine measurement (mass/volume) 0.84 0.57 - 1.11 04/28/2018 [facility] Serum or plasma urea nitrogen/creatinine mass ratio 13 6 - 25 04/28/2018 [facility] Estimated glomerular filtration rate (GFR) determination > 60 60 04/28/2018 [facility] Glucose measurement 121 74 - 118 04/28/2018 [facility] Serum or plasma calcium measurement (mass/volume) 9.1 8.4 - 10.2 04/28/2018 [facility] Serum or plasma total bilirubin measurement (mass/volume) 0.3 0.2 - 1.2 04/28/2018 [facility] Aspartate Amino Transf (AST/SGOT) 19 5 - 34 04/28/2018 [facility] Serum or plasma alanine aminotransferase measurement (enzymatic activity/volume) 27 0 - 55 04/28/2018 [facility] Serum or plasma protein measurement (mass/volume) 6.9 6.5 - 8.1 04/28/2018 [facility] Serum or plasma albumin measurement (mass/volume) 3.6 3.5 - 5.0 04/28/2018 [facility] Plasma globulin measurement (mass/volume) 3.3 2.3 - 3.5 04/28/2018 [facility] Serum or plasma albumin/globulin mass ratio 1.1 0.8 - 2.0 04/28/2018 [facility] Serum or plasma alkaline phosphatase measurement (enzymatic activity/volume) 108 40 - 150 04/28/2018 [facility] Serum or plasma lipase measurement (enzymatic activity/volume) 29 8 - 78 04/28/2018 [facility] Serum or plasma choriogonadotropin ( test) detection NEGATIVE NEGATIVE 03/28/2018 [facility] Serum or plasma choriogonadotropin ( test) detection NEGATIVE NEGATIVE 03/28/2018 [facility] Serum or plasma amylase measurement (enzymatic activity/volume) 101 25 - 125 03/28/2018 [facility] Serum or plasma choriogonadotropin ( test) detection NEGATIVE NEGATIVE 03/28/2018 [facility] Automated blood basophil count (count/volume) Automated blood basophil count (count/volume) 0.0 0.0 - 0.1 03/04/2018 [facility] Automated blood basophil count as percentage of total leukocytes Automated blood basophil count as percentage of total leukocytes 0.6 0.0 - 1.0 03/04/2018 [facility] Automated blood eosinophil count Automated blood eosinophil count 0.1 0.0 - 0.4 03/04/2018 [facility] Automated blood eosinophil count as percentage of total leukocytes Automated blood eosinophil count as percentage of total leukocytes 2.3 0.0 - 6.0 03/04/2018 [facility] Automated blood hematocrit (volume fraction) Automated blood hematocrit (volume fraction) 36.8 34.2 - 44.1 03/04/2018 [facility] Automated blood lymphocyte count as percentage ot total leukocytes Automated blood lymphocyte count as percentage ot total leukocytes 20.3 18.0 - 39.1 03/04/2018 [facility] Automated blood monocyte count as percentage of total leukocytes Automated blood monocyte count as percentage of total leukocytes 6.0 4.4 - 11.3 03/04/2018 [facility] Automated blood neutrophil count Automated blood neutrophil count 4.4 2.1 - 6.9 03/04/2018 [facility] Automated blood platelet count (count/volume) Automated blood platelet count (count/volume) 264 140 - 360 03/04/2018 [facility] Automated blood segmented neutrophil count as percentage of total leukocytes Automated blood segmented neutrophil count as percentage of total leukocytes 70.5 38.7 - 80.0 03/04/2018 [facility] Automated erythrocyte mean corpuscular hemoglobin (mass per erythrocyte) Automated erythrocyte mean corpuscular hemoglobin (mass per erythrocyte) 29.8 28 - 32 03/04/2018 [facility] Automated erythrocyte mean corpuscular hemoglobin concentration measurement (mass/volume) Automated erythrocyte mean corpuscular hemoglobin concentration measurement (mass/volume) 34.0 31 - 35 03/04/2018 [facility] Automated erythrocyte mean corpuscular volume Automated erythrocyte mean corpuscular volume 87.6 81 - 99 03/04/2018 [facility] Automated urine sediment leukocyte count by microscopy (number/high power field) Automated urine sediment leukocyte count by microscopy (number/high power field) NONE 0 - 5 03/04/2018 [facility] Bacteria detection in urine sediment by light microscopy Bacteria detection in urine sediment by light microscopy FEW NONE 03/04/2018 [facility] Blood erythrocytes automated count (number/volume) Blood erythrocytes automated count (number/volume) 4.20 3.6 - 5.1 03/04/2018 [facility] Blood hemoglobin measurement (moles/volume) Blood hemoglobin measurement (moles/volume) 12.5 12.0 - 16.0 03/04/2018 [facility] Blood leukocytes automated count (number/volume) Blood leukocytes automated count (number/volume) 6.21 4.8 - 10.8 03/04/2018 [facility] Blood lymphocytes count (number/volume) Blood lymphocytes count (number/volume) 1.3 1.0 - 3.2 03/04/2018 [facility] Blood monocytes automated count (number/volume) Blood monocytes automated count (number/volume) 0.4 0.2 - 0.8 03/04/2018 [facility] Epithelial cells detection in urine sediment by light microscopy Epithelial cells detection in urine sediment by light microscopy FEW NONE 03/04/2018 [facility] Erythrocytes detection in urine sediment by light microscopy Erythrocytes detection in urine sediment by light microscopy null 0 - 5 03/04/2018 [facility] Estimated glomerular filtration rate (GFR) determination Estimated glomerular filtration rate (GFR) determination null 60 03/04/2018 [facility] Glucose measurement Glucose measurement 122 74 - 118 03/04/2018 [facility] Plasma globulin measurement (mass/volume) Plasma globulin measurement (mass/volume) 3.2 2.3 - 3.5 03/04/2018 [facility] Serum or plasma alanine aminotransferase measurement (enzymatic activity/volume) Serum or plasma alanine aminotransferase measurement (enzymatic activity/volume) 24 0 - 55 03/04/2018 [facility] Serum or plasma albumin measurement (mass/volume) Serum or plasma albumin measurement (mass/volume) 3.5 3.5 - 5.0 03/04/2018 [facility] Serum or plasma albumin/globulin mass ratio Serum or plasma albumin/globulin mass ratio 1.1 0.8 - 2.0 03/04/2018 [facility] Serum or plasma alkaline phosphatase measurement (enzymatic activity/volume) Serum or plasma alkaline phosphatase measurement (enzymatic activity/volume) 107 40 - 150 03/04/2018 [facility] Serum or plasma anion gap Serum or plasma anion gap 15.3 8 - 16 03/04/2018 [facility] Serum or plasma calcium measurement (mass/volume) Serum or plasma calcium measurement (mass/volume) 9.3 8.4 - 10.2 03/04/2018 [facility] Serum or plasma carbon dioxide, total measurement (moles/volume) Serum or plasma carbon dioxide, total measurement (moles/volume) 22 22 - 29 03/04/2018 [facility] Serum or plasma chloride measurement (moles/volume) Serum or plasma chloride measurement (moles/volume) 105 98 - 107 03/04/2018 [facility] Serum or plasma creatinine measurement (mass/volume) Serum or plasma creatinine measurement (mass/volume) 0.99 0.57 - 1.11 03/04/2018 [facility] Serum or plasma lipase measurement (enzymatic activity/volume) Serum or plasma lipase measurement (enzymatic activity/volume) 32 8 - 78 03/04/2018 [facility] Serum or plasma potassium measurement (moles/volume) Serum or plasma potassium measurement (moles/volume) 4.3 3.5 - 5.1 03/04/2018 [facility] Serum or plasma protein measurement (mass/volume) Serum or plasma protein measurement (mass/volume) 6.7 6.5 - 8.1 03/04/2018 [facility] Serum or plasma sodium measurement (moles/volume) Serum or plasma sodium measurement (moles/volume) 138 136 - 145 03/04/2018 [facility] Serum or plasma total bilirubin measurement (mass/volume) Serum or plasma total bilirubin measurement (mass/volume) 0.2 0.2 - 1.2 03/04/2018 [facility] Serum or plasma urea nitrogen measurement (mass/volume) Serum or plasma urea nitrogen measurement (mass/volume) 16 7 - 26 03/04/2018 [facility] Serum or plasma urea nitrogen/creatinine mass ratio Serum or plasma urea nitrogen/creatinine mass ratio 16 6 - 25 03/04/2018 [facility] Specific gravity of Urine by Test strip Specific gravity of Urine by Test strip 1.010 1.010 - 1.025 03/04/2018 [facility] Urine clarity Urine clarity SL CLOUDY CLEAR 03/04/2018 [facility] Urine color determination Urine color determination YELLOW YELLOW 03/04/2018 [facility] Urine erythrocytes detection Urine erythrocytes detection 3+ NEGATIVE 03/04/2018 [facility] Urine glucose detection Urine glucose detection NEGATIVE NEGATIVE 03/04/2018 [facility] Urine ketones detection by automated test strip Urine ketones detection by automated test strip NEGATIVE NEGATIVE 03/04/2018 [facility] Urine leukocyte esterase detection by dipstick Urine leukocyte esterase detection by dipstick NEGATIVE NEGATIVE 03/04/2018 [facility] Urine nitrite detection Urine nitrite detection NEGATIVE NEGATIVE 03/04/2018 [facility] Urine pH measurement by automated test strip Urine pH measurement by automated test strip 6 5 - 7 03/04/2018 [facility] Urine protein measurement by test strip (mass/volume) Urine protein measurement by test strip (mass/volume) NEGATIVE NEGATIVE 03/04/2018 [facility] Urine total bilirubin measurement (mass/volume) Urine total bilirubin measurement (mass/volume) NEGATIVE NEGATIVE 03/04/2018 [facility] Urine urobilinogen measurement by test strip (mass/volume) Urine urobilinogen measurement by test strip (mass/volume) 0.2 0.2 - 1 03/04/2018 [facility] Red Cell Distribution Width 13.8 11.7 - 14.4 03/04/2018 [facility] IM GRANULOCYTES % 0.3 0.0 - 1.0 03/04/2018 [facility] Absolute Immature Granulocyte (auto 0.02 0 - 0.1 03/04/2018 [facility] Aspartate Amino Transf (AST/SGOT) 20 5 - 34 03/04/2018 [facility] Capillary blood glucose measurement by glucometer (mass/volume) 106 70 - 120 02/09/2018 [facility] Capillary blood glucose measurement by glucometer (mass/volume) 106 70 - 120 02/09/2018 [facility] Capillary blood glucose measurement by glucometer (mass/volume) Capillary blood glucose measurement by glucometer (mass/volume) 106 70 - 120 02/09/2018 [facility] Urine human chorionic gonadotropin (hCG) detection NEGATIVE NEGATIVE 02/09/2018 [facility] Urine human chorionic gonadotropin (hCG) detection Urine human chorionic gonadotropin (hCG) detection NEGATIVE NEGATIVE 02/09/2018 [facility] Serum or plasma creatine kinase measurement (enzymatic activity/volume) 75 29 - 168 01/21/2018 [facility] Serum or plasma creatine kinase MB measurement (mass/volume) 0.40 0 - 5.0 01/21/2018 [facility] Troponin I measurement by highly sensitive enzyme immunoassay < 0.001 0 - 0.300 01/21/2018 [facility] Troponin I measurement by highly sensitive enzyme immunoassay < 0.001 0 - 0.300 01/21/2018 [facility] Barbiturates screen, urine Barbiturates screen, urine NEGATIVE NEGATIVE 01/21/2018 [facility] Serum or plasma amylase measurement (enzymatic activity/volume) Serum or plasma amylase measurement (enzymatic activity/volume) 96 25 - 125 01/21/2018 [facility] Serum or plasma choriogonadotropin ( test) detection Serum or plasma choriogonadotropin ( test) detection NEGATIVE NEGATIVE 01/21/2018 [facility] Serum or plasma creatine kinase MB measurement (mass/volume) Serum or plasma creatine kinase MB measurement (mass/volume) 0.40 0 - 5.0 01/21/2018 [facility] Serum or plasma creatine kinase measurement (enzymatic activity/volume) Serum or plasma creatine kinase measurement (enzymatic activity/volume) 75 29 - 168 01/21/2018 [facility] Troponin I measurement by highly sensitive enzyme immunoassay Troponin I measurement by highly sensitive enzyme immunoassay null 0 - 0.300 01/21/2018 [facility] Urine amphetamines detection by screen method > 1000 ng/mL Urine amphetamines detection by screen method > 1000 ng/mL NEGATIVE NEGATIVE 01/21/2018 [facility] Urine benzodiazepines detection by screening method Urine benzodiazepines detection by screening method POSITIVE NEGATIVE 01/21/2018 [facility] Urine cannabinoids detection by screening method Urine cannabinoids detection by screening method POSITIVE NEGATIVE 01/21/2018 [facility] Urine cocaine measurement (mass/volume) Urine cocaine measurement (mass/volume) NEGATIVE NEGATIVE 01/21/2018 [facility] Urine opiates screening test Urine opiates screening test NEGATIVE NEGATIVE 01/21/2018 [facility] Urine phencyclidine detection by screening method Urine phencyclidine detection by screening method NEGATIVE NEGATIVE 01/21/2018 [facility] Urine Methamphetamines Screen NEGATIVE NEGATIVE 01/21/2018 [facility] Mucus detection in urine sediment by light microscopy FEW RARE 10/26/2017 [facility] Mucus detection in urine sediment by light microscopy FEW RARE 10/26/2017 [facility] Mucus detection in urine sediment by light microscopy Mucus detection in urine sediment by light microscopy FEW RARE 10/26/2017 [facility] Serum or plasma conjugated bilirubin measurement (mass/volume) 0.1 0.0 - 0.5 08/21/2017 [facility] Serum or plasma conjugated bilirubin measurement (mass/volume) 0.1 0.0 - 0.5 08/21/2017 [facility] Serum or plasma conjugated bilirubin measurement (mass/volume) Serum or plasma conjugated bilirubin measurement (mass/volume) 0.1 0.0 - 0.5 08/21/2017 [facility] Blood culture NO GROWTH AFTER 5 DAYS, FINAL REPORT 08/20/2017 [facility] Blood culture NO GROWTH AFTER 5 DAYS, FINAL REPORT 08/20/2017 [facility] Blood culture Blood culture NO GROWTH AFTER 5 DAYS, FINAL REPORT 08/20/2017 [facility] Hemoglobin A1c Percent 4.9 4.0 - 7.0 08/20/2017 [facility] Hemoglobin A1c Percent 4.9 4.0 - 7.0 08/20/2017 [facility] Serum or plasma triglyceride measurement (mass/volume) 113 0 - 149 08/20/2017 [facility] Serum or plasma cholesterol measurement (mass/volume) 227 0 - 199 08/20/2017 [facility] Serum or plasma cholesterol in LDL measurement (mass/volume) 141 60 - 130 08/20/2017 [facility] Serum or plasma cholesterol in HDL measurement (mass/volume) 63 40 - 60 08/20/2017 [facility] Serum or plasma total cholesterol/cholesterol in HDL mass ratio 3.6 3.0 - 3.6 08/20/2017 [facility] Serum or plasma total cholesterol/cholesterol in HDL mass ratio 3.6 3.0 - 3.6 08/20/2017 [facility] Serum or plasma cholesterol in HDL measurement (mass/volume) Serum or plasma cholesterol in HDL measurement (mass/volume) 63 40 - 60 08/20/2017 [facility] Serum or plasma cholesterol in LDL measurement (mass/volume) Serum or plasma cholesterol in LDL measurement (mass/volume) 141 60 - 130 08/20/2017 [facility] Serum or plasma cholesterol measurement (mass/volume) Serum or plasma cholesterol measurement (mass/volume) 227 0 - 199 08/20/2017 [facility] Serum or plasma total cholesterol/cholesterol in HDL mass ratio Serum or plasma total cholesterol/cholesterol in HDL mass ratio 3.6 3.0 - 3.6 08/20/2017 [facility] Serum or plasma triglyceride measurement (mass/volume) Serum or plasma triglyceride measurement (mass/volume) 113 0 - 149 08/20/2017 [facility] Transitional cells detection in urine sediment by light microscopy RARE NONE 08/05/2017 [facility] Transitional cells detection in urine sediment by light microscopy Transitional cells detection in urine sediment by light microscopy RARE NONE 08/05/2017 [facility] Bacterial urine culture Urine Culture [facility] Vital Signs Vital Sign Value Date Comments Source Diastolic (mm Hg) 66 07/28/2018 [facility] Systolic (mm Hg) 105 07/28/2018 [facility] Height 64 07/28/2018 [facility] Heart Rate 99 07/28/2018 [facility] Weight 234 07/28/2018 [facility] Diastolic (mm Hg) 68 07/07/2018 [facility] Systolic (mm Hg) 104 07/07/2018 [facility] Height 64 07/07/2018 [facility] Heart Rate 103 07/07/2018 [facility] Weight 234.50 07/07/2018 [facility] Diastolic (mm Hg) 73 06/09/2018 [facility] Systolic [...] DC Date Status Source Departed Emergency Room [id number] MARTA BARROW MD 07/03/2017 07/03/2017 [facility] Departed Emergency Room [id number] MADELINE MCKEON MD 07/30/2017 07/30/2017 [facility] Departed Emergency Room [id number] MADELINE GILBERT MD 08/05/2017 08/05/2017 [facility] Discharged Inpatient [id number] NEELIMA TILLEY MD 08/20/2017 08/24/2017 [facility] Departed Emergency Room [id number] COLLETTE MARTINEZ MD 09/09/2017 09/09/2017 [facility] Est Patient Detailed - [id number] Bogdan Hand MD 09/25/2017 [facility] Detailed - [id number] Bogdan Hand MD 10/21/2017 [facility] Departed Emergency Room [id number] MADELIEN GILBERT MD 10/26/2017 10/26/2017 [facility] Departed Emergency Room [id number] CANDE LOUIS MD 11/17/2017 11/17/2017 [facility] Est Patient Detailed - [id number] Bogdan Hand MD 11/20/2017 [facility] Departed Emergency Room [id number] MADELINE GILBERT MD 12/04/2017 12/04/2017 [facility] Est Patient Detailed - [id number] Bogdan Hand MD 12/13/2017 [facility] Patient Detailed - [id number] Bogdan Hand MD 01/15/2018 [facility] Departed Emergency Room [id number] SEEMA TINAJERO MD 01/21/2018 01/21/2018 [facility] Est Patient Detailed - [id number] Bogdan Hand MD 02/07/2018 [facility] Departed Emergency Room [id number] COLLETTE MARTINEZ MD 02/09/2018 02/09/2018 [facility] Est Patient Exp Problem - [id number] Bogdan Hand MD 02/17/2018 [facility] Departed Emergency Room [id number] SEEMA TINAJERO MD 03/04/2018 03/04/2018 [facility] Est Patient Exp Problem - [id number] Bogdan Hand MD 03/17/2018 [facility] Departed Emergency Room [id number] DANIAL ÁLVAREZ MD 03/28/2018 03/28/2018 [facility] Departed Emergency Room [id number] EROS SIDHU MD 03/31/2018 03/31/2018 [facility] Departed Emergency Room [id number] EROS SIDHU MD 04/09/2018 04/09/2018 [facility] Est Patient Detailed - [id number] Bogdan Hand MD 04/14/2018 [facility] Departed Emergency Room [id number] SEEMA TINAJERO MD 04/28/2018 04/28/2018 [facility] Est Patient Detailed - [id number] Bogdan Hand MD 05/05/2018 [facility] Departed Emergency Room [id number] EROS SIDHU MD 06/03/2018 06/03/2018 [facility] Est Patient Exp Problem - [id number] Bogdan Hand MD 06/09/2018 [facility] Departed Emergency Room [id number] MADELINE GILBERT MD 06/15/2018 06/15/2018 [facility] Est Patient Detailed - [id number] Bogdan Hand MD 07/07/2018 [facility] Patient Detailed - [id number] Bogdan Hand MD 07/28/2018 [facility] Procedures Procedure Code Date Perfomer Comments Source CT of abdomen and pelvis without contrast [id number] 06/03/2018 [facility] Computed tomography of abdomen and pelvis with contrast [id number] 03/28/[facility] tomography of abdomen and pelvis with contrast [id number] 03/04/2018 [facility] Computed tomography of chest with contrast [id number] 03/04/2018 [facility] Psychotherapy 45 (38-52*) min - 40533 (with patient and/or family member) [id number] 02/26/2018 [facility] Diagnostic evaluation (no medical) - [id number] 02/10/2018 [place] [facility] Computed tomography of abdomen and pelvis with contrast [id number] 01/21/2018 [facility] Computed tomography of lumbar spine with contrast [id number] 01/21/2018 [facility] Computed tomography of abdomen and pelvis with contrast [id number] 12/04/2017 [facility] Computed tomography of abdomen and pelvis with contrast [id number] [facility] and pelvis with contrast [id number] 10/26/2017 [facility] Diagnostic evaluation with medical - [id number] 08/31/2017 [facility] Computed tomography of abdomen with contrast [id number] 08/23/2017 [facility] Computed tomography of abdomen and pelvis with contrast [id number] 08/20/2017 [facility] CT of abdomen and pelvis without contrast [id number] 08/05/[address] [facility] [address] of abdomen and pelvis without contrast [id number] [facility] [id number] 07/03/2017 DANIAL CABRERA [facility]
[2018-08-05] MEDS ORDERED: KETOROLAC TROMETHAMINE 30 MG/ML VIAL IV STA (08:06)
[2018-08-05] MEDS ORDERED: DICYCLOMINE HCL 20 MG/2 ML VIAL IM ONE (08:15)
[2018-08-05] MEDS ORDERED: TAMSULOSIN HCL 0.4 MG CAP PO SCH (08:30)
[2018-08-05] MEDS ORDERED: SODIUM CHLORIDE 0.9% 1000ML 2,000 ML IV ONE (08:30)
[2018-08-05] MEDS ORDERED: METOCLOPRAMIDE HCL 10 MG/2ML VIAL IV ONE (08:30)
[2018-08-05 09:07] LABS: BASOPHILS % 0.6 % (0.0-1.0); EOSINOPHILS # (AUTO) 0.1 (0.0-0.4); EOSINOPHILS % 1.9 % (0.0-6.0); HEMATOCRIT 36.4 % (34.2-44.1); HEMOGLOBIN 12.1 g/dL (12.0-16.0); LYMPHOCYTES # (AUTO) 1.2 (1.0-3.2); LYMPHOCYTES % 26.1 % (18.0-39.1); MEAN CORPUSCULAR HEMOGLOBIN 28.9 pg (28-32); MEAN CORPUSCULAR HGB CONC 33.2 g/dL (31-35); MEAN CORPUSCULAR VOLUME 86.9 fL (81-99); MONOCYTES # (AUTO) 0.3 (0.2-0.8); MONOCYTES % 5.5 % (4.4-11.3); NEUTROPHILS # (AUTO) 3.1 (2.1-6.9); NEUTROPHILS % 65.9 % (38.7-80.0); PLATELET COUNT 270 x10e3/uL (140-360); RED BLOOD COUNT 4.19 x10e6/uL (3.6-5.1); RED CELL DISTRIBUTION WIDTH 13.8 % (11.7-14.4)
[2018-08-05 09:14] LABS: BILIRUBIN,URINE NEGATIVE (NEGATIVE); CLARITY,URINE CLEAR (CLEAR); COLOR,URINE YELLOW (YELLOW); KETONES,URINE NEGATIVE (NEGATIVE); LEUKOCYTE ESTERASE ,URINE NEGATIVE (NEGATIVE); NITRITE,URINE NEGATIVE (NEGATIVE); PROTEIN,URINE DIPSTICK NEGATIVE (NEGATIVE); URINE UROBILINOGEN 0.2 mg/dL (0.2 - 1)
[2018-08-05 09:22] LABS: ALANINE AMINOTRANSFERASE 21 IU/L (0-55); ALBUMIN 3.2 g/dL (3.5-5.0); ALBUMIN/GLOBULIN RATIO 1.1 (0.8-2.0); ALKALINE PHOSPHATASE 83 IU/L (40-150); ANION GAP 10.5 mmol/L (8-16); BLOOD UREA NITROGEN 7 mg/dL (7-26); BUN/CREATININE RATIO 8 (6-25); CALCIUM 8.6 mg/dL (8.4-10.2); CARBON DIOXIDE 22 mmol/L (22-29); CHLORIDE 106 mmol/L (98-107); CREATININE, SERUM 0.83 mg/dL (0.57-1.11); EST GLOMERULAR FILTRATION RATE > 60 ML/MIN (60-); GLUCOSE 114 mg/dL (74-118); LIPASE 29 U/L (8-78); POTASSIUM 3.5 mmol/L (3.5-5.1); SODIUM 135 mmol/L (136-145)
[2018-08-05 09:25] LABS: EPITHELIAL CELLS,URINE FEW /LPF
--- NOTE | 2018-08-05 10:40 | Diagnostic Imaging Report ---
EXAM: CT Abdomen and Pelvis WITHOUT contrast INDICATION: Left flank pain with hematuria. History of renal stones. COMPARISON: CT abdomen and pelvis dated 06/03/2018 TECHNIQUE: Abdomen and pelvis were scanned utilizing a multidetector helical scanner from the lung base to the pubic symphysis without administration of IV contrast. Absence of intravenous contrast decreases sensitivity for detection of focal lesions and vascular pathology. Coronal and sagittal reformations were obtained. Renal stone protocol was utilized IV CONTRAST: None. ORAL CONTRAST: None RADIATION DOSE: Total DLP: 814.71 mGy*cm Dose modulation, iterative reconstruction and/or weight based adjustment of the mA/kV was utilized to reduce the radiation dose to as low as reasonably achievable. FINDINGS: LINES and TUBES: None. LOWER THORAX: Unremarkable. HEPATOBILIARY: Diffuse fatty liver. No focal hepatic lesions. No biliary ductal dilation. Gallbladder is absent. SPLEEN: No splenomegaly. PANCREAS: No focal masses or ductal dilatation. ADRENALS: No adrenal nodules KIDNEYS/URETERS: No hydronephrosis. No cystic or solid mass lesions. There are at least 2 small less than 2 mm in size right renal stones that are nonobstructing. There are at least 3 small left renal stones that are nonobstructing with the largest measuring 4.9 mm. GI TRACT: No abnormal distention, wall thickening, or evidence of bowel obstruction. Appendix is normal. PELVIC ORGANS/BLADDER: Status post hysterectomy. The bladder is unremarkable in appearance. LYMPH NODES: No lymphadenopathy. VESSELS: Unremarkable. PERITONEUM / RETROPERITONEUM: No free air. Trace pelvic free fluid. BONES/SOFT TISSUES: No acute bony findings. Stable postoperative appearance of the anterior abdominal wall mesh repair. No evidence of recurrent hernia. IMPRESSION: 1. Bilateral nonobstructing nephrolithiasis. 2. Mild diffuse hepatic steatosis without evidence of a mass. Signed by: Dr. Joe Killian DO on 08/05/2018 10:37 AM
[2018-08-05 11:11] VITALS: BP 113/75
== END 2018-08-05 11:18 | disposition home or self-care (01) ==
LOC: ER 07:58
DX: G89.4 Chronic pain syndrome (principal); R10.9 Unspecified abdominal pain; R11.2 Nausea with vomiting, unspecified; M54.5 Low back pain; N20.0 Calculus of kidney; R19.7 Diarrhea, unspecified
CPT/HCPCS: 36415; 74176; 80053; 81001; 83690; 85025; 99284; J0500; J1885; J2765; J7030

== ENCOUNTER 2018-08-08 09:43 | Emergency (ER) | payer OTHER ==
[~2018-08-08] VITALS: Ht 162.6 cm; Wt 99.8 kg
--- OUTSIDE RECORDS SUMMARY | 2018-08-08 09:46 | XMS REPORT | Clinical Summary ---
Author Author [facility] Organization [facility] Address Unknown Phone Unavailable Care Team Providers Care Firearms Specialist Name Role Phone Asked, No Pcp PCP [...] (Primary Dx) 03/05/2018 Emergency Emergency Medicine after 08/07/2017 Social History Date Tobacco Use Types Packs/Day [...] 12-LEAD STAT 03/05/2018 9:02 AM CDT after 08/07/2017 Results * Lactic acid level, SEPSIS - Now and repeat 2x every 3 hours (03/05/2018 1:15 PM CDT) Only the most recent of 2 results within the time period is included. Lactic acid 1.4 0.5 - 2.2 mmol/L [facility] DEPARTMENT OF PATHOLOGY AND GENOMIC MEDICINE Specimen Blood Performing Organization Address City/State/Zipcode Phone Number [facility] DEPARTMENT OF [address] [place] [address] PATHOLOGY AND GENOMIC MEDICINE * CT Chest [...] No fluid collections. IMPRESSION: No acute abnormality. [id number] Procedure Note Hm Interface, Radiology Results Incoming [...] No fluid collections. IMPRESSION: No acute abnormality. [id number] Performing Organization Address [facility]/[place] [address] * Estimated GFR (03/05/2018 10:15 AM CDT) Estimated GFR 87 mL/min/1.73 m2 [facility] DEPARTMENT OF Comment: PATHOLOGY AND [employer]ory[employer]itsInte GENOMIC MEDICINE rpretation G1 >=90 Normal or high G2 60-89Mildly decreased Y1q12-52 Mildly to moderately decreased W0x98-14 Moderately to severely decreased G4 15-29Severely decreased G5 <15Kidney failure The eGFR was calculated using the Chronic Kidney Disease Epidemiology Collaboration (CKD-EPI) equation. Interpretation is based on recommendations of the National Kidney Foundation-Kidney Disease Outcomes Quality Initiative (NKF-KDOQI) published in 2014. Specimen Plasma specimen Performing Organization Address [facility] [place] [address] PATHOLOGY AND GENOMIC MEDICINE * Troponin (03/05/2018 10:15 AM CDT) Troponin <0.30 0.00 - 0.30 ng/mL [facility] DEPARTMENT OF Comment: PATHOLOGY AND 0.30 - 1.49 GENOMIC MEDICINE ng/mlMay indicate increased risk of acute coronary syndrome. >=1.5 ng/ml Consistent with acute myocardial infarction. The diagnostic value of a single normal or non-diagnostic result is questionable.Serial samples at 2-6 hour intervals are required to rule out acute myocardial injury. Specimen Plasma specimen Performing Organization Address [facility] [place] [address] PATHOLOGY AND [employer] MEDICINE * Partial thromboplastin time, activated (03/05/2018 10:15 AM CDT) PTT 29.9 23.0 - 36.0 sec [facility] DEPARTMENT OF Comment: PATHOLOGY AND PTT therapeutic range for GENOMIC MEDICINE unfractionated heparin is 61.0-112.0 seconds which corresponds to Anti-Xa 0.3-0.7 U/ml. Specimen Blood Performing Organization Address [facility]/[place] [address] PATHOLOGY AND [employer] MEDICINE * Prothrombin time with INR (03/05/2018 10:15 AM CDT) Prothrombin time 14.1 12.0 - 15.0 sec [facility] DEPARTMENT OF PATHOLOGY AND GENOMIC MEDICINE INR 1.1 [facility] DEPARTMENT OF Comment: PATHOLOGY AND The International Normalized GENOMIC MEDICINE Ratio (INR) is a therapeutic monitoring tool for patients who are stable on oral anticoagulant therapy. An INR of 2.0-3.0 is suggested for deep vein thrombosis/pulmonary embolism. Specimen Blood Performing Organization Address [facility] [place] [address] PATHOLOGY AND GENOMIC MEDICINE * D-dimer (03/05/2018 10:15 AM CDT) D-dimer 0.92 (H) 0.00 - 0.40 ug/mL FEU [facility] DEPARTMENT OF Comment: PATHOLOGY AND Units are [...] and malignancies. Specimen Blood Performing Organization Address City/[facility] Phone Number [address] [address] PATHOLOGY AND [employer] MEDICINE * CBC with platelet and differential (03/05/2018 10:15 AM CDT) WBC 6.28 4.50 - 11.00 k/uL [facility] DEPARTMENT OF PATHOLOGY AND GENOMIC MEDICINE RBC 3.96 (L) 4.20 - 5.50 m/uL [facility] DEPARTMENT OF PATHOLOGY AND GENOMIC MEDICINE HGB 11.5 (L) 12.0 - 16.0 g/dL [facility] DEPARTMENT OF PATHOLOGY AND GENOMIC MEDICINE HCT 35.4 (L) 37.0 - 47.0 % [facility] DEPARTMENT OF PATHOLOGY AND GENOMIC MEDICINE MCV 89.4 82.0 - 100.0 fL [facility] DEPARTMENT OF PATHOLOGY AND GENOMIC MEDICINE MCH 29.0 27.0 - 34.0 pg [facility] DEPARTMENT OF PATHOLOGY AND GENOMIC MEDICINE MCHC 32.5 31.0 - 37.0 g/dL [facility] DEPARTMENT OF PATHOLOGY AND GENOMIC MEDICINE RDW - SD 45.1 37.0 - 55.0 fL [facility] DEPARTMENT OF PATHOLOGY AND GENOMIC MEDICINE MPV 8.9 8.8 - 13.2 fL [facility] DEPARTMENT OF PATHOLOGY AND GENOMIC MEDICINE Platelet count 241 150 - 400 k/uL [facility] DEPARTMENT OF PATHOLOGY AND GENOMIC MEDICINE Nucleated RBC 0.00 /100 WBC [facility] DEPARTMENT OF PATHOLOGY AND GENOMIC MEDICINE Neutrophils 66.0 39.0 - 69.0 % [facility] DEPARTMENT OF PATHOLOGY AND GENOMIC MEDICINE Lymphocytes 24.8 (L) 25.0 - 45.0 % [facility] DEPARTMENT OF PATHOLOGY AND GENOMIC MEDICINE Monocytes 6.1 0.0 - 10.0 % [facility] DEPARTMENT OF PATHOLOGY AND GENOMIC MEDICINE Eosinophils 2.2 0.0 - 5.0 % [facility] DEPARTMENT OF PATHOLOGY AND GENOMIC MEDICINE Basophils 0.6 0.0 - 1.0 % [facility] DEPARTMENT OF PATHOLOGY AND GENOMIC MEDICINE Immature granulocytes 0.3Comment: "Immature 0.0 - 1.0 % [facility] DEPARTMENT OF granulocytes" (promyelocytes, PATHOLOGY AND myelocytes, metamyelocytes) GENOMIC MEDICINE Specimen Blood Performing Organization Address City/[facility] Phone Number [facility] [place] [address] PATHOLOGY AND GENOMIC MEDICINE * Type and screen (03/05/2018 10:15 AM CDT) ABO grouping O [facility] DEPARTMENT OF PATHOLOGY AND GENOMIC MEDICINE Rh type POS [facility] DEPARTMENT OF PATHOLOGY AND GENOMIC MEDICINE Antibody screen (gel) NEG [facility] DEPARTMENT OF PATHOLOGY AND GENOMIC MEDICINE Specimen Blood Performing Organization Address [facility] Phone Number [facility] [place] [address] PATHOLOGY AND GENOMIC MEDICINE * B natriuretic peptide (03/05/2018 10:15 AM CDT) BNP 11 0 - 100 pg/mL [facility] DEPARTMENT OF PATHOLOGY AND GENOMIC MEDICINE Specimen Blood Performing Organization Address City/[facility]/Zipcode Phone Number [facility] [place] [place] [address] PATHOLOGY AND [facility] MEDICINE * Lipase level (03/05/2018 10:15 AM CDT) Lipase 20 13 - 60 U/L [facility] DEPARTMENT OF PATHOLOGY AND GENOMIC MEDICINE Specimen Plasma specimen Performing Organization Address City/[facility]/Zipcode Phone Number [facility] [place] [place] [address] PATHOLOGY AND GENOMIC MEDICINE * Basic metabolic panel (03/05/2018 10:15 AM CDT) Sodium 141 135 - 148 mEq/L [facility] DEPARTMENT OF PATHOLOGY AND GENOMIC MEDICINE Potassium 4.5 3.5 - 5.0 mEq/L [facility] DEPARTMENT OF PATHOLOGY AND GENOMIC MEDICINE Chloride 103 98 - 112 mEq/L [facility] DEPARTMENT OF PATHOLOGY AND GENOMIC MEDICINE CO2 27 24 - 31 mEq/L [facility] DEPARTMENT OF PATHOLOGY AND GENOMIC MEDICINE Anion gap 11@ANIO 7 - 15 mEq/L [facility] DEPARTMENT OF PATHOLOGY AND GENOMIC MEDICINE BUN 10 6 - 20 mg/dL [facility] DEPARTMENT OF PATHOLOGY AND GENOMIC MEDICINE Creatinine 0.84 0.50 - 0.90 mg/dL [facility] DEPARTMENT OF PATHOLOGY AND GENOMIC MEDICINE Glucose 85 65 - 99 mg/dL [facility] DEPARTMENT OF PATHOLOGY AND GENOMIC MEDICINE Calcium 8.3 8.3 - 10.2 mg/dL [facility] DEPARTMENT OF PATHOLOGY AND GENOMIC MEDICINE Specimen Plasma specimen Performing Organization Address City/[facility] [place] [address] PATHOLOGY AND GENOMIC MEDICINE * XR Chest 1 Vw (03/05/2018 10:02 AM CDT) Narrative Performed At EXAM: RADIANT XR CHEST 1 VW INDICATION: Chest painACS suspected COMPARISON: None. IMPRESSION: Surgical clips right upper quadrant. Minimal linear opacity lateral aspect left lower lung, discoid atelectasis versus scar/fibrosis. No consolidation, pleural effusion, pneumothorax. Heart size is normal. Minimal degenerative changes thoracic spine. [facility]-[id number] Procedure Note Interface, Radiology Results Incoming - 03/05/2018 10:06 AM CDT EXAM: XR CHEST 1 VW INDICATION: Chest pain ACS suspected COMPARISON: None. IMPRESSION: Surgical clips right upper quadrant. Minimal linear opacity lateral aspect left lower lung, discoid atelectasis versus scar/fibrosis. No consolidation, pleural effusion, pneumothorax. Heart size is normal. Minimal degenerative changes thoracic spine. [id number]-[id number] Performing Organization Address City/[facility] Phone Number [facility] [address] [place] [address] * XR Abdomen 1 Vw (03/05/2018 10:02 [...] are seen in the right upper quadrant. [id number] Procedure Note Hm Interface, Radiology Results Incoming [...] are seen in the right upper quadrant. [id number] Performing Organization Address City/[facility] Phone Number [facility] [address] [place] [address] * ECG 12 lead (03/05/2018 9:02 AM CDT) Ventricular rate 94 [facility] Atrial rate 94 [facility] FL interval 194 [facility] QRSD interval 128 [facility] QT interval 388 [facility] QTC interval 485 [facility] P axis 1 50 [facility] QRS axis 1 22 [facility] T wave axis 48 [facility] EKG impression Normal sinus [facility] rhythm-Nonspecific intraventricular block-Abnormal ECG-No previous ECGs available- Performing Organization Address City/[facility] Phone Number [employer] [address] [place] [address] after 08/07/2017 Insurance Payer Benefit Subscriber ID Type Phone Address Plan / Group [employer] xxxxxxxx HMO STAR+PLUS DEDRICK Advance Directives Patient has advance care planning documents on file. For more information, ivan rousseau contact: Jai Zee [address] [place] [address]
--- OUTSIDE RECORDS SUMMARY | 2018-08-08 09:46 | XMS REPORT | Clinical Summary ---
Author Author RICK [facility] Address Unknown Phone Unavailable Care Team Providers Care Acid Changer Name Role Phone Sharpless PCP Unavailable Allergies [...] Mild dehydration 10/25/2017 Emergency Emergency Medicine after 08/07/2017 Social History [...] CULTURE STAT 10/25/2017 8:37 AM CDT after 08/07/2017 Results * CT abdomen pelvis with IV [...] MD Report Verified Date/Time:10/25/2017 10:25:23 Reading Location: [facility] C013 Ortho Consult Reading Room Procedure [...] Report Verified Date/Time: 10/25/2017 10:25:23 Reading Location: [facility] [id number] Ortho Consult Reading Room Performing Organization Address City/State/Zipcode Phone Number [facility] * Urinalysis w/Microscopic + Reflex to Culture (10/25/2017 8:37 AM CDT) Color, UA Light Yellow [facility] Clarity, UA Clear [facility] Specific [place], UA 1.005 1.001 - 1.035 [facility] pH, UA 6.0 5.0 - 8.0 [facility] Protein, UA Negative Negative [facility] Glucose, UA Negative Negative [facility] Ketones, UA Negative Negative [facility] Bilirubin, UA Negative Negative [facility] Blood, UA Negative Negative [facility] Nitrite, UA Negative Negative [facility] Leukocytes, UA Negative Negative [facility] Urobilinogen, UA 0.2 0.2 - 1.0 mg/dL [facility] RBC, UA <1 /HPF [facility] WBC, UA 6 /HPF [facility] Bacteria, UA Rare [facility] Mucus Rare [facility] Squam Epithel, UA 3 /HPF [facility] Amorphous Crystals Rare [facility] Specimen Source [facility] Specimen Urine - Urine, Clean Catch Performing Organization Address City/State/Zipcode Phone Number [facility] [address] [place] [address] MEDICAL CENTER * CBC with platelet count + automated diff (10/25/2017 8:37 AM CDT) WBC 6.2 3.5 - 10.5 K/L [facility] RBC 4.48 3.93 - 5.22 M/L [facility] Hemoglobin 12.7 11.2 - 15.7 GM/DL [facility] Hematocrit 39.5 34.1 - 44.9 % [facility] MCV 88.2 79.4 - 94.8 fL [facility] MCH 28.3 25.6 - 32.2 pg [facility] MCHC 32.2 32.2 - 35.5 GM/DL [facility] RDW 13.9 11.7 - 14.4 % [facility] Platelets 259 150 - 450 K/CU MM [facility] MPV 9.6 9.4 - 12.3 fL [facility] nRBC 0 0 - 0 /100 WBC [facility] % Neutros 67 % [facility] % Lymphs 25 % [facility] % Monos 6 % [facility] % Eos 2 % [facility] % Baso 0 % [facility] # Neutros 4.15 1.56 - 6.13 K/L [facility] # Lymphs 1.52 1.18 - 3.74 K/L [facility] # Monos 0.38 (H) 0.24 - 0.36 K/L [facility] # Eos 0.09 0.04 - 0.36 K/L [facility] # Baso 0.02 0.01 - 0.08 K/L [facility] Immature 1 0 - 1 % [facility] Granulocytes-[facility] Specimen Blood Performing Organization Address City/State/Zipcode Phone Number [facility] [address] [place] [address] MEDICAL CENTER * Urine culture (10/25/2017 8:37 AM CDT) Result ESCHERICHIA COLI (A) [facility] Specimen Urine - Urine, Clean Catch Narrative Performed At 10-19,000 col/mL skin ronaldo [facility] Antibiotic Method Susceptibility Organism Amikacin <=2: [...] Susceptible Escherichia coli Performing Organization Address [facility] Phone Number [address] * Lipase (10/25/2017 8:37 AM CDT) Lipase 40 8 - 78 U/L [facility] Specimen Blood Performing Organization Address [facility] Phone Number [address] * Comprehensive metabolic panel (10/25/2017 8:37 AM CDT) Protein, Total 6.3 6.0 - 8.3 gm/dL [facility] Albumin 3.9 3.5 - 5.0 g/dL [facility] Alkaline Phosphatase 80 40 - 150 U/L [facility] Total Bilirubin 0.2 0.2 - 1.2 mg/dL [facility] Sodium 142 136 - 145 meq/L [facility] Potassium 3.8 3.5 - 5.1 meq/L [facility] Chloride 111 (H) 98 - 107 meq/L [facility] CO2 23 22 - 29 meq/L [facility] BUN 14 7 - 21 mg/dL [facility] Creatinine 0.80 0.57 - 1.25 mg/dL [facility] Glucose 126 (H) 70 - 105 mg/dL [facility] Calcium 8.8 8.4 - 10.2 mg/dL [facility] AST 14 5 - 34 U/L [facility] ALT 21 6 - 55 U/L [facility] EGFR 80Comment: ESTIMATED GFR IS mL/min/1.[address] [facility] NOT ACCURATE CREATININE [facility] CLEARANCE IN PREDICTING GLOMERULAR FILTRATION RATE. ESTIMATED GFR IS NOT APPLICABLE FOR DIALYSIS PATIENTS. Specimen Blood Performing Organization Address City/State/Zipcode Phone Number [facility] [address] [place] [address] [facility] after 08/07/2017 Insurance Payer Benefit Subscriber ID Type Phone Address Plan / Group MEDICAID - MEDICAID MGD MEDICAID xxxxxxxxx Medicaid CARE [employer] Non-Contra cted
[2018-08-08] MEDS ORDERED: DIAZEPAM 5 MG TAB PO NR (10:15)
[2018-08-08] MEDS ORDERED: ORPHENADRINE CITRATE 30 MG/ML VIAL IM ONE (10:15)
[2018-08-08] MEDS ORDERED: KETOROLAC TROMETHAMINE 60 MG/2 ML VIAL IM NR (10:15)
== END 2018-08-08 13:52 | disposition home or self-care (01) ==
LOC: ER 09:43
DX: M54.42 Lumbago with sciatica, left side (principal); Z87.19 Personal history of other diseases of the digestive system

== ENCOUNTER 2018-10-01 07:52 | Emergency (ER) | payer OTHER ==
[~2018-10-01] VITALS: Ht 162.6 cm; Wt 99.8 kg
--- OUTSIDE RECORDS SUMMARY | 2018-10-01 07:55 | XMS REPORT | Clinical Summary ---
Author Author RICK [facility] Address Unknown Phone Unavailable Care Team Providers Care House Wirer Name Role Phone Sharpless PCP Unavailable Allergies Comments Active Allergy Reactions Severity Noted Date Codeine 10/25/2017 Tramadol 10/25/2017 Medications End Date Status Medication Sig Dispensed Refills Start Date 10/25/2018 Active dicyclomine (BENTYL) 20 Take 1 tablet 20 tablet 0 10/25/201 mg tablet (20 mg total) 8 by mouth 2 (two) times daily. 11/01/2017 ondansetron (ZOFRAN) 4 MG Take 1 tablet 12 tablet 0 201 tablet (4 mg total) 8 by mouth every 6 (six) hours for 7 days. Active Problems Problem Noted Date Abdominal pain, unspecified abdominal location 10/25/2017 Nausea vomiting and diarrhea 10/25/2017 Mild dehydration 10/25/2017 Encounters Care Team Description Date Type Specialty Viola, Margie Weeks DO Abdominal pain, unspecified abdominal location (Primary Dx); Nausea vomiting and diarrhea; Mild dehydration 10/25/2017 Emergency Emergency Medicine after 09/30/2017 Social History Date Tobacco Use Types Packs/Day [...] CULTURE STAT 10/25/2017 8:37 AM CDT after 09/30/2017 Results * CT abdomen pelvis with IV contrast (10/25/2017 10:19 AM CDT) Specimen Narrative Performed At FINAL REPORT [facility] CT of the abdomen [...] MD Report Verified Date/Time:10/25/2017 10:25:23 Reading Location: [facility] C013 Ortho Consult Reading Room Procedure [...] Report Verified Date/Time: 10/25/2017 10:25:23 Reading Location: [facility] [id number] Ortho Consult Reading Room Performing Organization Address City/State/Zipcode Phone Number [facility] * Urinalysis w/Microscopic + Reflex to Culture (10/25/2017 8:37 AM CDT) Color, UA Light Yellow [facility] Clarity, UA Clear [facility] Specific [place], UA 1.005 1.001 - 1.035 [facility] pH, UA 6.0 5.0 - 8.0 [facility] Protein, UA Negative Negative [facility] Glucose, UA Negative Negative [facility] Ketones, UA Negative Negative [facility] Bilirubin, UA Negative Negative [facility] Blood, UA Negative Negative [facility] Nitrite, UA Negative Negative [facility] Leukocytes, UA Negative Negative [facility] Urobilinogen, UA 0.2 0.2 - 1.0 mg/dL [facility] RBC, UA <1 /HPF [facility] WBC, UA 6 /HPF [facility] Bacteria, UA Rare [facility] Mucus Rare [facility] Squam Epithel, UA 3 /HPF [facility] Amorphous Crystals Rare [facility] Specimen Source [facility] Specimen Urine Performing Organization Address City/State/Zipcode Phone Number [facility] [address] [place] [address] MEDICAL [facility]ENTER * CBC with platelet count + automated diff (10/25/2017 8:37 AM CDT) WBC 6.2 3.5 - 10.5 K/L [facility] RBC 4.48 3.93 - 5.22 M/L [facility] Hemoglobin 12.7 11.2 - 15.7 GM/DL [facility] Hematocrit 39.5 34.1 - 44.9 % [facility] MCV 88.2 79.4 - 94.8 fL [facility] MCH 28.3 25.6 - 32.2 pg [facility] MCHC 32.2 32.2 - 35.5 GM/DL [facility] RDW 13.9 11.7 - 14.4 % [facility] Platelets 259 150 - 450 K/CU MM [facility] MPV 9.6 9.4 - 12.3 fL [facility] nRBC 0 0 - 0 /100 WBC [facility] % Neutros 67 % [facility] % Lymphs 25 % [facility] % Monos 6 % [facility] % Eos 2 % [facility] % Baso 0 % [facility] # Neutros 4.15 1.56 - 6.13 K/L [facility] # Lymphs 1.52 1.18 - 3.74 K/L [facility] # Monos 0.38 (H) 0.24 - 0.36 K/L [facility] # Eos 0.09 0.04 - 0.36 K/L [facility] # Baso 0.02 0.01 - 0.08 K/L [facility] Immature 1 0 - 1 % [facility] Granulocytes-[facility] Specimen Blood Performing Organization Address City/State/Zipcode Phone Number [facility] [address] [place] [address] MEDICAL CENTER * Urine culture (10/25/2017 8:37 AM CDT) Result ESCHERICHIA COLI (A) [facility] Specimen Urine Narrative Performed At 10-19,000 col/mL skin ronaldo [facility] Antibiotic Method Susceptibility Organism Amikacin <=2: [...] <=20: Susceptible Escherichia coli Performing Organization Address City/[facility] Phone Number [address] * Lipase (10/25/2017 8:37 AM CDT) Lipase 40 8 - 78 U/L [facility] Specimen Blood Performing Organization Address City/[facility] Phone Number [address] * Comprehensive metabolic panel (10/25/2017 8:37 AM CDT) Protein, Total 6.3 6.0 - 8.3 gm/dL [facility] Albumin 3.9 3.5 - 5.0 g/dL [facility] Alkaline Phosphatase 80 40 - 150 U/L [facility] Total Bilirubin 0.2 0.2 - 1.2 mg/dL [facility] Sodium 142 136 - 145 meq/L [facility] Potassium 3.8 3.5 - 5.1 meq/L [facility] Chloride 111 (H) 98 - 107 meq/L [facility] CO2 23 22 - 29 meq/L [facility] BUN 14 7 - 21 mg/dL [facility] Creatinine 0.80 0.57 - 1.25 mg/dL [facility] Glucose 126 (H) 70 - 105 mg/dL [facility] Calcium 8.8 8.4 - 10.2 mg/dL [facility] AST 14 5 - 34 U/L [facility] ALT 21 6 - 55 U/L [facility] EGFR 80Comment: ESTIMATED GFR IS mL/min/1.[address] [facility] NOT ACCURATE CREATININE [facility] CLEARANCE IN PREDICTING GLOMERULAR FILTRATION RATE. ESTIMATED GFR IS NOT APPLICABLE FOR DIALYSIS PATIENTS. Specimen Blood Performing Organization Address City/State/Zipcode Phone Number [facility] [address] [place] [address] [facility] CENTER after 09/30/2017 Insurance Payer Benefit Subscriber ID Type Phone Address Plan / Group MEDICAID - MEDICAID MGD MEDICAID xxxxxxxxx Medicaid CARE [employer] Non-Contra cted
--- OUTSIDE RECORDS SUMMARY | 2018-10-01 07:55 | XMS REPORT | Clinical Summary ---
Author Author [facility] Address Unknown Phone Unavailable Care Team Providers Care [place] Decorator Name Role Phone Asked, No Pcp PCP [...] (Primary Dx) 03/05/2018 Emergency Emergency Medicine after 09/30/2017 Social History [...] Comments CERVICAL CANCER SCREENING 1998 INFLUENZA VACCINE 12/30/2018 Procedures Comments Procedure Name Priority Date/Time Associated [...] 12-LEAD STAT 03/05/2018 9:02 AM CDT after 09/30/2017 Results * Lactic acid level, SEPSIS - Now and repeat 2x every 3 hours (03/05/2018 1:15 PM CDT) Only the most recent of 2 results within the time period is included. Lactic acid 1.4 0.5 - 2.2 mmol/L [facility] DEPARTMENT OF PATHOLOGY AND GENOMIC MEDICINE Specimen Blood Performing Organization Address City/State/Zipcode Phone Number [facility] DEPARTMENT OF [address] [place] [address] PATHOLOGY AND GENOMIC MEDICINE * CT Chest [...] No fluid collections. IMPRESSION: No acute abnormality. [id number] Procedure Note Hm Interface, Radiology Results Incoming [...] No fluid collections. IMPRESSION: No acute abnormality. [id number] Performing Organization Address [facility]/[place] [address] * Estimated GFR (03/05/2018 10:15 AM CDT) Estimated GFR 87 mL/min/1.73 m2 [facility] DEPARTMENT OF Comment: PATHOLOGY AND [employer]ory[employer]itsInte GENOMIC MEDICINE rpretation G1 >=90 Normal or high G2 60-89Mildly decreased [id number] Mildly to moderately decreased [id number] Moderately to severely decreased G4 15-29Severely decreased G5 <15Kidney failure The eGFR was calculated using the Chronic Kidney Disease Epidemiology Collaboration (CKD-EPI) equation. Interpretation is based on recommendations of the National Kidney Foundation-Kidney Disease Outcomes Quality Initiative (NKF-KDOQI) published in 2014. Specimen Plasma specimen Performing Organization Address [facility] [place] [address] PATHOLOGY AND GENOMIC MEDICINE * Troponin (03/05/2018 10:15 AM CDT) Troponin <0.30 0.00 - 0.30 ng/mL [facility] DEPARTMENT OF Comment: PATHOLOGY AND 0.30 - 1.49 GENOMIC MEDICINE ng/mlMay indicate increased risk of acute coronary syndrome. >=1.5 ng/ml Consistent with acute myocardial infarction. The diagnostic value of a single normal or non-diagnostic result is questionable.Serial samples at 2-6 hour intervals are required to rule out acute myocardial injury. Specimen Plasma specimen Performing Organization Address [facility] [place] [address] PATHOLOGY AND WO Funding MEDICINE * Partial thromboplastin time, activated (03/05/2018 10:15 AM CDT) PTT 29.9 23.0 - 36.0 sec [facility] DEPARTMENT OF Comment: PATHOLOGY AND PTT therapeutic range for GENOMIC MEDICINE unfractionated heparin is 61.0-112.0 seconds which corresponds to Anti-Xa 0.3-0.7 U/ml. Specimen Blood Performing Organization Address [facility]/[place] [address] PATHOLOGY AND WO Funding MEDICINE * Prothrombin time with INR (03/05/2018 10:15 AM CDT) Prothrombin time 14.1 12.0 - 15.0 sec [facility] DEPARTMENT OF PATHOLOGY AND GENOMIC MEDICINE INR 1.1 [facility] DEPARTMENT OF Comment: PATHOLOGY AND The International Normalized GENOMIC MEDICINE Ratio (INR) is a therapeutic monitoring tool for patients who are stable on oral anticoagulant therapy. An INR of 2.0-3.0 is suggested for deep vein thrombosis/pulmonary embolism. Specimen Blood Performing Organization Address [facility] [place] [address] PATHOLOGY AND GENOMIC MEDICINE * D-dimer (03/05/2018 10:15 AM CDT) D-dimer 0.92 (H) 0.00 - 0.40 ug/mL FEU [facility] DEPARTMENT OF Comment: PATHOLOGY AND [...] and malignancies. Specimen Blood Performing Organization Address City/[facility] Phone Number [address] [address] PATHOLOGY AND WO Funding MEDICINE * CBC with platelet and differential (03/05/2018 10:15 AM CDT) WBC 6.28 4.50 - 11.00 k/uL [facility] DEPARTMENT OF PATHOLOGY AND GENOMIC MEDICINE RBC 3.96 (L) 4.20 - 5.50 m/uL [facility] DEPARTMENT OF PATHOLOGY AND GENOMIC MEDICINE HGB 11.5 (L) 12.0 - 16.0 g/dL [facility] DEPARTMENT OF PATHOLOGY AND GENOMIC MEDICINE HCT 35.4 (L) 37.0 - 47.0 % [facility] DEPARTMENT OF PATHOLOGY AND GENOMIC MEDICINE MCV 89.4 82.0 - 100.0 fL [facility] DEPARTMENT OF PATHOLOGY AND GENOMIC MEDICINE MCH 29.0 27.0 - 34.0 pg [facility] DEPARTMENT OF PATHOLOGY AND GENOMIC MEDICINE MCHC 32.5 31.0 - 37.0 g/dL [facility] DEPARTMENT OF PATHOLOGY AND GENOMIC MEDICINE RDW - SD 45.1 37.0 - 55.0 fL [facility] DEPARTMENT OF PATHOLOGY AND GENOMIC MEDICINE MPV 8.9 8.8 - 13.2 fL [facility] DEPARTMENT OF PATHOLOGY AND GENOMIC MEDICINE Platelet count 241 150 - 400 k/uL [facility] DEPARTMENT OF PATHOLOGY AND GENOMIC MEDICINE Nucleated RBC 0.00 /100 WBC [facility] DEPARTMENT OF PATHOLOGY AND GENOMIC MEDICINE Neutrophils 66.0 39.0 - 69.0 % [facility] DEPARTMENT OF PATHOLOGY AND GENOMIC MEDICINE Lymphocytes 24.8 (L) 25.0 - 45.0 % [facility] DEPARTMENT OF PATHOLOGY AND GENOMIC MEDICINE Monocytes 6.1 0.0 - 10.0 % [facility] DEPARTMENT OF PATHOLOGY AND GENOMIC MEDICINE Eosinophils 2.2 0.0 - 5.0 % [facility] DEPARTMENT OF PATHOLOGY AND GENOMIC MEDICINE Basophils 0.6 0.0 - 1.0 % [facility] DEPARTMENT OF PATHOLOGY AND GENOMIC MEDICINE Immature granulocytes 0.3Comment: "Immature 0.0 - 1.0 % [facility] DEPARTMENT OF granulocytes" (promyelocytes, PATHOLOGY AND myelocytes, metamyelocytes) GENOMIC MEDICINE Specimen Blood Performing Organization Address City/[facility] Phone Number [facility] [place] [address] PATHOLOGY AND GENOMIC MEDICINE * Type and screen (03/05/2018 10:15 AM CDT) ABO grouping O [facility] DEPARTMENT OF PATHOLOGY AND GENOMIC MEDICINE Rh type POS [facility] DEPARTMENT OF PATHOLOGY AND GENOMIC MEDICINE Antibody screen (gel) NEG [facility] DEPARTMENT OF PATHOLOGY AND GENOMIC MEDICINE Specimen Blood Performing Organization Address [facility] Phone Number [facility] [place] [address] PATHOLOGY AND GENOMIC MEDICINE * B natriuretic peptide (03/05/2018 10:15 AM CDT) BNP 11 0 - 100 pg/mL [facility] DEPARTMENT OF PATHOLOGY AND GENOMIC MEDICINE Specimen Blood Performing Organization Address City/[facility]/Zipcode Phone Number [facility] [place] [address] PATHOLOGY AND [facility] MEDICINE * Lipase level (03/05/2018 10:15 AM CDT) Lipase 20 13 - 60 U/L [facility] DEPARTMENT OF PATHOLOGY AND GENOMIC MEDICINE Specimen Plasma specimen Performing Organization Address City/[facility]/Zipcode Phone Number [facility] [place] [address] PATHOLOGY AND GENOMIC MEDICINE * Basic metabolic panel (03/05/2018 10:15 AM CDT) Sodium 141 135 - 148 mEq/L [facility] DEPARTMENT OF PATHOLOGY AND GENOMIC MEDICINE Potassium 4.5 3.5 - 5.0 mEq/L [facility] DEPARTMENT OF PATHOLOGY AND GENOMIC MEDICINE Chloride 103 98 - 112 mEq/L [facility] DEPARTMENT OF PATHOLOGY AND GENOMIC MEDICINE CO2 27 24 - 31 mEq/L [facility] DEPARTMENT OF PATHOLOGY AND GENOMIC MEDICINE Anion gap 11@ANIO 7 - 15 mEq/L [facility] DEPARTMENT OF PATHOLOGY AND GENOMIC MEDICINE BUN 10 6 - 20 mg/dL [facility] DEPARTMENT OF PATHOLOGY AND GENOMIC MEDICINE Creatinine 0.84 0.50 - 0.90 mg/dL [facility] DEPARTMENT OF PATHOLOGY AND GENOMIC MEDICINE Glucose 85 65 - 99 mg/dL [facility] DEPARTMENT OF PATHOLOGY AND GENOMIC MEDICINE Calcium 8.3 8.3 - 10.2 mg/dL [facility] DEPARTMENT OF PATHOLOGY AND GENOMIC MEDICINE Specimen Plasma specimen Performing Organization Address City/[facility] [place] [address] PATHOLOGY AND GENOMIC MEDICINE * XR Chest 1 Vw (03/05/2018 10:02 AM CDT) Narrative Performed At EXAM: RADIANT XR CHEST 1 VW INDICATION: Chest painACS suspected COMPARISON: None. IMPRESSION: Surgical clips right upper quadrant. Minimal linear opacity lateral aspect left lower lung, discoid atelectasis versus scar/fibrosis. No consolidation, pleural effusion, pneumothorax. Heart size is normal. Minimal degenerative changes thoracic spine. [id number] Procedure Note Interface, Radiology Results Incoming - 03/05/2018 10:06 AM CDT EXAM: XR CHEST 1 VW INDICATION: Chest pain ACS suspected COMPARISON: None. IMPRESSION: Surgical clips right upper quadrant. Minimal linear opacity lateral aspect left lower lung, discoid atelectasis versus scar/fibrosis. No consolidation, pleural effusion, pneumothorax. Heart size is normal. Minimal degenerative changes thoracic spine. [id number] Performing Organization Address City/[facility] Phone Number [facility] [address] [place] [address] * XR Abdomen 1 Vw (03/05/2018 10:02 [...] are seen in the right upper quadrant. [id number] Procedure Note Hm Interface, Radiology Results Incoming [...] are seen in the right upper quadrant. [id number] Performing Organization Address City/[facility] Phone Number [employer] [address] [place] [address] * ECG 12 lead (03/05/2018 9:02 AM CDT) Ventricular rate 94 [facility] Atrial rate 94 [facility] AR interval 194 [facility] QRSD interval 128 [facility] QT interval 388 [facility] QTC interval 485 [facility] P axis 1 50 [facility] QRS axis 1 22 [facility] T wave axis 48 [facility] EKG impression Normal sinus [facility] rhythm-Nonspecific intraventricular block-Abnormal ECG-No previous ECGs available- Performing Organization Address City/[facility] Phone Number [facility] [address] [place] [address] after 09/30/2017 Insurance Payer Benefit Subscriber ID Type Phone Address Plan / Group [employer] xxxxxxxx HMO STAR[employer]US DEDRICK Advance Directives Patient has advance care planning documents on file. For more information, ivan rousseau contact: Jai Zee [address] [place] [address]
--- OUTSIDE RECORDS SUMMARY | 2018-10-01 07:56 | XMS REPORT | Continuity of Care Document ---
Author Author [facility] Interface Address Unknown Phone Unavailable Problems Problem Status Onset Date Classification Date Reported Comments Source DEPRESSIVE DISORDER, MAJOR, RECURRENT EPISODE, W/ PSYCHOTIC FEATURES Active 10/21/2017 Diagnosis 09/27/2018 [facility] PTSD Active 08/28/2017 Diagnosis 09/27/2018 [facility] PANIC DISORDER Active 08/28/2017 Diagnosis 09/27/2018 [facility] INSOMNIA DISORDER, PERSISTENT Active 08/28/2017 Diagnosis 09/27/2018 [facility] Pancreatitis, acute Active Problem 08/08/2018 [facility] Medications Medication Details Route Status Patient Instructions [...] Tablet Daily for 10 Active Bigg 03/04/2018 [facility] Levofloxacin (Levaquin) 500 Mg Tablet, 500 Mg Oral Daily for 10 Active Bigg 03/04/2018 [facility] Levofloxacin (Levaquin) 500 Mg Tablet Daily for 10 Active Bigg 03/04/2018 [facility] Cephalexin Monohydrate (Keflex) 500 Mg Capsule Every 6 Hours Active Bigg 01/21/2018 [facility] Prednisone 20 Mg Tab Daily Active Bigg 01/21/2018 [facility] Cephalexin Monohydrate (Keflex) 500 Mg Capsule, 500 Mg Oral Every 6 Hours Active Bigg 01/21/2018 [facility] Prednisone 20 Mg Tab, 40 Mg Oral Daily Active Bigg 01/21/2018 [facility] Cephalexin Monohydrate (Keflex) 500 Mg Capsule Every 6 Hours Active Bigg 01/21/2018 [facility] Prednisone 20 Mg Tab Daily Active Bigg 01/21/2018 [facility] WELLBUTRIN XL 150 MG ORAL TABLET EXTENDED [...] 8 Hours as needed for Pain Active [facility] 08/24/2017 [facility] Cyclobenzaprine Hcl 10 Mg Tablet, 5 Mg Oral Three Times A Day Active [facility] 08/24/2017 [facility] Ondansetron (Zofran Odt) 4 Mg Tab.rapdis, 4 Mg Oral Q4- 6H Prn Active [facility] 08/24/2017 [facility] Polyethylene Glycol 3350 (Miralax) 17 Gm Powd.pack, 17 Gm Oral Twice A Day Active [facility] 08/24/2017 [facility] Senna Fruit/Conc/Doc Sod/Bisa 1 Ea Tab, 2 Ea Oral Bedtime Active [facility] 08/24/2017 [facility] Acetaminophen With Codeine (Tylenol With Codeine #3 Tablet) 1 Each Tablet, 300 Mg Oral Every 8 Hours as needed for Pain Active [facility] 08/24/2017 [facility] Cyclobenzaprine Hcl 10 Mg Tablet, 5 Mg Oral Three Times A Day Active [facility] 08/24/2017 [facility] Ondansetron (Zofran Odt) 4 Mg Tab.rapdis, 4 Mg Oral Q4- 6H Prn Active [facility] 08/24/2017 [facility] Polyethylene Glycol 3350 (Miralax) 17 Gm Powd.pack, 17 Gm Oral Twice A Day Active [facility] 08/24/2017 [facility] Amitriptyline Hcl 150 Mg Tablet Bedtime Active [facility] Diazepam 10 Mg Tablet Bedtime Active [facility] DIAZEPAM TAKE 1 TABLET BY MOUTH AT BEDTIME NEEDED FOR BREAKTHROUGH ANXIETY Active TAKE 1 TABLET BY MOUTH AT BEDTIME NEEDED FOR BREAKTHROUGH ANXIETY [facility] Allergies, Adverse Reactions, Alerts Substance Category Reaction Severity Reaction type Status Date Reported Comments Source Codeine Mild Allergy to Substance Active 08/08/2018 [facility] Tramadol Unknown Allergy to Substance Active 08/08/2018 [facility] Immunizations Immunization Date Given Site Status Last Updated Comments Source Results Order Name Results Value Reference Range Date Interpretation Comments Source Blood leukocytes automated count (number/volume) 4.72 4.8 - 10.8 08/05/2018 [facility] Blood erythrocytes automated count (number/volume) 4.19 3.6 - 5.1 08/05/2018 [facility] Blood hemoglobin measurement (moles/volume) 12.1 12.0 - 16.0 08/05/2018 [facility] Automated blood hematocrit (volume fraction) 36.4 34.2 - 44.1 08/05/2018 [facility] Automated erythrocyte mean corpuscular volume 86.9 81 - 99 08/05/2018 [facility] Automated erythrocyte mean corpuscular hemoglobin (mass per erythrocyte) 28.9 28 - 32 08/05/2018 [facility] Automated erythrocyte mean corpuscular hemoglobin concentration measurement (mass/volume) 33.2 31 - 35 08/05/2018 [facility] RDW BldCo-Rto 13.8 11.7 - 14.4 08/05/2018 [facility] Automated blood platelet count (count/volume) 270 140 - 360 08/05/2018 [facility] Automated blood segmented neutrophil count as percentage of total leukocytes 65.9 38.7 - 80.0 08/05/2018 [facility] Automated blood lymphocyte count as percentage ot total leukocytes 26.1 18.0 - 39.1 08/05/2018 [facility] Automated blood monocyte count as percentage of total leukocytes 5.5 4.4 - 11.3 08/05/2018 [facility] Automated blood eosinophil count as percentage of total leukocytes 1.9 0.0 - 6.0 08/05/2018 [facility] Automated blood basophil count as percentage of total leukocytes 0.6 0.0 - 1.0 08/05/2018 [facility] IM GRANULOCYTES % 0.0 0.0 - 1.0 08/05/2018 [facility] Automated blood neutrophil count 3.1 2.1 - 6.9 08/05/2018 [facility] Blood lymphocytes count (number/volume) 1.2 1.0 - 3.2 08/05/2018 [facility] Blood monocytes automated count (number/volume) 0.3 0.2 - 0.8 08/05/2018 [facility] Automated blood eosinophil count 0.1 0.0 - 0.4 08/05/2018 [facility] Automated blood basophil count (count/volume) 0.0 0.0 - 0.1 08/05/2018 [facility] Absolute Immature Granulocyte (auto 0 0 - 0.1 08/05/2018 [facility] Serum or plasma sodium measurement (moles/volume) 135 136 - 145 08/05/2018 [facility] Serum or plasma potassium measurement (moles/volume) 3.5 3.5 - 5.1 08/05/2018 [facility] Serum or plasma chloride measurement (moles/volume) 106 98 - 107 08/05/2018 [facility] Serum or plasma carbon dioxide, total measurement (moles/volume) 22 22 - 29 08/05/2018 [facility] Serum or plasma anion gap 10.5 8 - 16 08/05/2018 [facility] Serum or plasma urea nitrogen measurement (mass/volume) 7 7 - 26 08/05/2018 [facility] Serum or plasma creatinine measurement (mass/volume) 0.83 0.57 - 1.11 08/05/2018 [facility] Serum or plasma urea nitrogen/creatinine mass ratio 8 6 - 25 08/05/2018 [facility] Estimated glomerular filtration rate (GFR) determination > 60 60 08/05/2018 [facility] Glucose measurement 114 74 - 118 08/05/2018 [facility] Serum or plasma calcium measurement (mass/volume) 8.6 8.4 - 10.2 08/05/2018 [facility] Serum or plasma total bilirubin measurement (mass/volume) 0.2 0.2 - 1.2 08/05/2018 [facility] Aspartate Amino Transf (AST/SGOT) 16 5 - 34 08/05/2018 [facility] Serum or plasma alanine aminotransferase measurement (enzymatic activity/volume) 21 0 - 55 08/05/2018 [facility] Serum or plasma protein measurement (mass/volume) 6.0 6.5 - 8.1 08/05/2018 [facility] Serum or plasma albumin measurement (mass/volume) 3.2 3.5 - 5.0 08/05/2018 [facility] Plasma globulin measurement (mass/volume) 2.8 2.3 - 3.5 08/05/2018 [facility] Serum or plasma albumin/globulin mass ratio 1.1 0.8 - 2.0 08/05/2018 [facility] Serum or plasma alkaline phosphatase measurement (enzymatic activity/volume) 83 40 - 150 08/05/2018 [facility] Serum or plasma lipase measurement (enzymatic activity/volume) 29 8 - 78 08/05/2018 [facility] Blood leukocytes automated count (number/volume) 4.92 4.8 - 10.8 06/15/2018 [facility] Blood erythrocytes automated count (number/volume) 4.31 3.6 - 5.1 06/15/2018 [facility] Serum or plasma amylase measurement (enzymatic activity/volume) 101 25 - 125 06/15/2018 [facility] Automated blood hematocrit (volume fraction) 38.1 34.2 - 44.1 06/15/2018 [facility] Automated erythrocyte mean corpuscular volume 88.4 81 - 99 06/15/2018 [facility] Automated erythrocyte mean corpuscular hemoglobin (mass per erythrocyte) 29.5 28 - 32 06/15/2018 [facility] Automated erythrocyte mean corpuscular hemoglobin concentration measurement (mass/volume) 33.3 31 - 35 06/15/2018 [facility] RDW BldCo-Rto 13.5 11.7 - 14.4 06/15/2018 [facility] Automated blood platelet count (count/volume) 297 140 - 360 06/15/2018 [facility] Automated blood segmented neutrophil count as percentage of total leukocytes 60.6 38.7 - 80.0 06/15/2018 [facility] Automated blood lymphocyte count as percentage ot total leukocytes 28.9 18.0 - 39.1 06/15/2018 [facility] Automated blood monocyte count as percentage of total leukocytes 6.7 4.4 - 11.3 06/15/2018 [facility] Automated blood eosinophil count as percentage of total leukocytes 1.6 0.0 - 6.0 06/15/2018 [facility] Automated blood basophil count as percentage of total leukocytes 1.0 0.0 - 1.0 06/15/2018 [facility] IM GRANULOCYTES % 1.2 0.0 - 1.0 06/15/2018 [facility] Automated blood neutrophil count 3.0 2.1 - 6.9 06/15/2018 [facility] Blood lymphocytes count (number/volume) 1.4 1.0 - 3.2 06/15/2018 [facility] Blood monocytes automated count (number/volume) 0.3 0.2 - 0.8 06/15/2018 [facility] Automated blood eosinophil count 0.1 0.0 - 0.4 06/15/2018 [facility] Automated blood basophil count (count/volume) 0.1 0.0 - 0.1 06/15/2018 [facility] Absolute Immature Granulocyte (auto 0.06 0 - 0.1 06/15/2018 [facility] Urine color determination YELLOW YELLOW 06/15/2018 [facility] Urine clarity CLEAR CLEAR 06/15/2018 [facility] Specific gravity of Urine by Test strip 1.010 1.010 - 1.025 06/15/2018 [facility] Urine pH measurement by automated test strip 6 5 - 7 06/15/2018 [facility] Urine leukocyte esterase detection by dipstick TRACE NEGATIVE 06/15/2018 [facility] Urine nitrite detection NEGATIVE NEGATIVE 06/15/2018 [facility] Urine protein measurement by test strip (mass/volume) NEGATIVE NEGATIVE 06/15/2018 [facility] Urine glucose detection NEGATIVE NEGATIVE 06/15/2018 [facility] Urine ketones detection by automated test strip NEGATIVE NEGATIVE 06/15/2018 [facility] Urine urobilinogen measurement by test strip (mass/volume) 0.2 0.2 - 1 06/15/2018 [facility] Urine total bilirubin measurement (mass/volume) NEGATIVE NEGATIVE 06/15/2018 [facility] Urine erythrocytes detection NEGATIVE NEGATIVE 06/15/2018 [facility] Automated urine sediment leukocyte count by microscopy (number/high power field) 6-10 0 - 5 06/15/2018 [facility] Erythrocytes detection in urine sediment by light microscopy NONE 0 - 5 06/15/2018 [facility] Bacteria detection in urine sediment by light microscopy MODERATE NONE 06/15/2018 [facility] Epithelial cells detection in urine sediment by light microscopy RARE NONE 06/15/2018 [facility] Serum or plasma sodium measurement (moles/volume) 138 136 - 145 06/15/2018 [facility] Serum or plasma potassium measurement (moles/volume) 3.7 3.5 - 5.1 06/15/2018 [facility] Serum or plasma chloride measurement (moles/volume) 108 98 - 107 06/15/2018 [facility] Serum or plasma carbon dioxide, total measurement (moles/volume) 23 22 - 29 06/15/2018 [facility] Serum or plasma anion gap 10.7 8 - 16 06/15/2018 [facility] Serum or plasma urea nitrogen measurement (mass/volume) 9 7 - 26 06/15/2018 [facility] Serum or plasma creatinine measurement (mass/volume) 0.99 0.57 - 1.11 06/15/2018 [facility] Serum or plasma urea nitrogen/creatinine mass ratio 9 6 - 25 06/15/2018 [facility] Estimated glomerular filtration rate (GFR) determination > 60 60 06/15/2018 [facility] Glucose measurement 76 74 - 118 06/15/2018 [facility] Serum or plasma calcium measurement (mass/volume) 8.5 8.4 - 10.2 06/15/2018 [facility] Serum or plasma total bilirubin measurement (mass/volume) 0.2 0.2 - 1.2 06/15/2018 [facility] Aspartate Amino Transf (AST/SGOT) 17 5 - 34 06/15/2018 [facility] Serum or plasma alanine aminotransferase measurement (enzymatic activity/volume) 19 0 - 55 06/15/2018 [facility] Serum or plasma protein measurement (mass/volume) 6.3 6.5 - 8.1 06/15/2018 [facility] Serum or plasma albumin measurement (mass/volume) 3.6 3.5 - 5.0 06/15/2018 [facility] Plasma globulin measurement (mass/volume) 2.7 2.3 - 3.5 06/15/2018 [facility] Serum or plasma albumin/globulin mass ratio 1.3 0.8 - 2.0 06/15/2018 [facility] Serum or plasma alkaline phosphatase measurement (enzymatic activity/volume) 87 40 - 150 06/15/2018 [facility] Serum or plasma amylase measurement (enzymatic activity/volume) 101 25 - 125 06/15/2018 [facility] Serum or plasma lipase measurement (enzymatic activity/volume) 30 8 - 78 06/15/2018 [facility] Urine opiates screening test NEGATIVE NEGATIVE 06/15/2018 [facility] Barbiturates screen, urine NEGATIVE NEGATIVE 06/15/2018 [facility] Urine phencyclidine detection by screening method NEGATIVE NEGATIVE 06/15/2018 [facility] Urine amphetamines detection by screen method > 1000 ng/mL NEGATIVE NEGATIVE 06/15/2018 [facility] Urine Methamphetamines Screen NEGATIVE NEGATIVE 06/15/2018 [facility] Urine benzodiazepines detection by screening method POSITIVE NEGATIVE 06/15/2018 [facility] Urine cocaine measurement (mass/volume) POSITIVE NEGATIVE 06/15/2018 [facility] Urine cannabinoids detection by screening method POSITIVE NEGATIVE 06/15/2018 [facility] Urine methadone screen NEGATIVE NEGATIVE 06/15/2018 [facility] Urine opiates screening test NEGATIVE NEGATIVE 06/15/2018 [facility] Barbiturates screen, urine NEGATIVE NEGATIVE 06/15/2018 [facility] Urine phencyclidine detection by screening method NEGATIVE NEGATIVE 06/15/2018 [facility] Urine amphetamines detection by screen method > 1000 ng/mL NEGATIVE NEGATIVE 06/15/2018 [facility] Urine Methamphetamines Screen NEGATIVE NEGATIVE 06/15/2018 [facility] Urine benzodiazepines detection by screening method POSITIVE NEGATIVE 06/15/2018 [facility] Urine cocaine measurement (mass/volume) POSITIVE NEGATIVE 06/15/2018 [facility] Urine cannabinoids detection by screening method POSITIVE NEGATIVE 06/15/2018 [facility] Urine methadone screen NEGATIVE NEGATIVE 06/15/2018 [facility] Blood leukocytes automated count (number/volume) 5.42 4.8 - 10.8 06/03/2018 [facility] Blood erythrocytes automated count (number/volume) 4.21 3.6 - 5.1 06/03/2018 [facility] Blood hemoglobin measurement (moles/volume) 12.5 12.0 - 16.0 06/03/2018 [facility] Automated blood hematocrit (volume fraction) 36.6 34.2 - 44.1 06/03/2018 [facility] Automated erythrocyte mean corpuscular volume 86.9 81 - 99 06/03/2018 [facility] Automated erythrocyte mean corpuscular hemoglobin (mass per erythrocyte) 29.7 28 - 32 06/03/2018 [facility] Automated erythrocyte mean corpuscular hemoglobin concentration measurement (mass/volume) 34.2 31 - 35 06/03/2018 [facility] RDW BldCo-Rto 13.3 11.7 - 14.4 06/03/2018 [facility] Automated blood platelet count (count/volume) 237 140 - 360 06/03/2018 [facility] Automated blood segmented neutrophil count as percentage of total leukocytes 65.3 38.7 - 80.0 06/03/2018 [facility] Automated blood lymphocyte count as percentage ot total leukocytes 26.9 18.0 - 39.1 06/03/2018 [facility] Automated blood monocyte count as percentage of total leukocytes 5.2 4.4 - 11.3 06/03/2018 [facility] Automated blood eosinophil count as percentage of total leukocytes 1.5 0.0 - 6.0 06/03/2018 [facility] Automated blood basophil count as percentage of total leukocytes 0.7 0.0 - 1.0 06/03/2018 [facility] IM GRANULOCYTES % 0.4 0.0 - 1.0 06/03/2018 [facility] Automated blood neutrophil count 3.5 2.1 - 6.9 06/03/2018 [facility] Blood lymphocytes count (number/volume) 1.5 1.0 - 3.2 06/03/2018 [facility] Blood monocytes automated count (number/volume) 0.3 0.2 - 0.8 06/03/2018 [facility] Automated blood eosinophil count 0.1 0.0 - 0.4 06/03/2018 [facility] Automated blood basophil count (count/volume) 0.0 0.0 - 0.1 06/03/2018 [facility] Absolute Immature Granulocyte (auto 0.02 0 - 0.1 06/03/2018 [facility] Serum or plasma sodium measurement (moles/volume) 134 136 - 145 06/03/2018 [facility] Serum or plasma potassium measurement (moles/volume) 3.7 3.5 - 5.1 06/03/2018 [facility] Serum or plasma chloride measurement (moles/volume) 103 98 - 107 06/03/2018 [facility] Serum or plasma carbon dioxide, total measurement (moles/volume) 24 22 - 29 06/03/2018 [facility] Serum or plasma anion gap 10.7 8 - 16 06/03/2018 [facility] Serum or plasma urea nitrogen measurement (mass/volume) 10 7 - 26 06/03/2018 [facility] Serum or plasma creatinine measurement (mass/volume) 0.82 0.57 - 1.11 06/03/2018 [facility] Serum or plasma urea nitrogen/creatinine mass ratio 12 6 - 25 06/03/2018 [facility] Estimated glomerular filtration rate (GFR) determination > 60 60 06/03/2018 [facility] Glucose measurement 96 74 - 118 06/03/2018 [facility] Serum or plasma calcium measurement (mass/volume) 8.9 8.4 - 10.2 06/03/2018 [facility] Serum or plasma magnesium measurement (mass/volume) 1.9 1.3 - 2.1 06/03/2018 [facility] Serum or plasma total bilirubin measurement (mass/volume) 0.5 0.2 - 1.2 06/03/2018 [facility] Aspartate Amino Transf (AST/SGOT) 14 5 - 34 06/03/2018 [facility] Serum or plasma alanine aminotransferase measurement (enzymatic activity/volume) 19 0 - 55 06/03/2018 [facility] Serum or plasma protein measurement (mass/volume) 6.3 6.5 - 8.1 06/03/2018 [facility] Serum or plasma albumin measurement (mass/volume) 3.5 3.5 - 5.0 06/03/2018 [facility] Plasma globulin measurement (mass/volume) 2.8 2.3 - 3.5 06/03/2018 [facility] Serum or plasma albumin/globulin mass ratio 1.3 0.8 - 2.0 06/03/2018 [facility] Serum or plasma alkaline phosphatase measurement (enzymatic activity/volume) 84 40 - 150 06/03/2018 [facility] Serum or plasma magnesium measurement (mass/volume) 1.9 1.3 - 2.1 06/03/2018 [facility] Serum or plasma magnesium measurement (mass/volume) 1.9 1.3 - 2.1 06/03/2018 [facility] Urine color determination YELLOW YELLOW 06/03/2018 [facility] Urine clarity SL CLOUDY CLEAR 06/03/2018 [facility] Specific gravity of Urine by Test strip 1.010 1.010 - 1.025 06/03/2018 [facility] Urine pH measurement by automated test strip 6.5 5 - 7 06/03/2018 [facility] Urine leukocyte esterase detection by dipstick TRACE NEGATIVE 06/03/2018 [facility] Urine nitrite detection NEGATIVE NEGATIVE 06/03/2018 [facility] Urine protein measurement by test strip (mass/volume) NEGATIVE NEGATIVE 06/03/2018 [facility] Urine glucose detection NEGATIVE NEGATIVE 06/03/2018 [facility] Urine ketones detection by automated test strip NEGATIVE NEGATIVE 06/03/2018 [facility] Urine urobilinogen measurement by test strip (mass/volume) 0.2 0.2 - 1 06/03/2018 [facility] Urine total bilirubin measurement (mass/volume) NEGATIVE NEGATIVE 06/03/2018 [facility] Urine erythrocytes detection NEGATIVE NEGATIVE 06/03/2018 [facility] Automated urine sediment leukocyte count by microscopy (number/high power field) 0-5 0 - 5 06/03/2018 [facility] Erythrocytes detection in urine sediment by light microscopy NONE 0 - 5 06/03/2018 [facility] Bacteria detection in urine sediment by light microscopy MODERATE NONE 06/03/2018 [facility] Epithelial cells detection in urine sediment by light microscopy RARE NONE 06/03/2018 [facility] Urine human chorionic gonadotropin (hCG) detection NEGATIVE NEGATIVE 06/03/2018 [facility] Urine human chorionic gonadotropin (hCG) detection NEGATIVE NEGATIVE 06/03/2018 [facility] Urine human chorionic gonadotropin (hCG) detection NEGATIVE NEGATIVE 06/03/2018 [facility] Urine opiates screening test NEGATIVE NEGATIVE 04/28/2018 [facility] Barbiturates screen, urine NEGATIVE NEGATIVE 04/28/2018 [facility] Urine phencyclidine detection by screening method NEGATIVE NEGATIVE 04/28/2018 [facility] Urine amphetamines detection by screen method > 1000 ng/mL NEGATIVE NEGATIVE 04/28/2018 [facility] Urine Methamphetamines Screen NEGATIVE NEGATIVE 04/28/2018 [facility] Urine benzodiazepines detection by screening method POSITIVE NEGATIVE 04/28/2018 [facility] Urine cocaine measurement (mass/volume) NEGATIVE NEGATIVE 04/28/2018 [facility] Urine cannabinoids detection by screening method POSITIVE NEGATIVE 04/28/2018 [facility] Urine methadone screen NEGATIVE NEGATIVE 04/28/2018 [facility] Serum or plasma lipase measurement (enzymatic activity/volume) 29 8 - 78 04/28/2018 [facility] Automated blood platelet count (count/volume) 249 140 - 360 04/28/2018 [facility] Automated blood segmented neutrophil count as percentage of total leukocytes 63.7 38.7 - 80.0 04/28/2018 [facility] Automated blood lymphocyte count as percentage ot total leukocytes 28.5 18.0 - 39.1 04/28/2018 [facility] Automated blood monocyte count as percentage of total leukocytes 4.6 4.4 - 11.3 04/28/2018 [facility] Automated blood eosinophil count as percentage of total leukocytes 2.2 0.0 - 6.0 04/28/2018 [facility] Automated blood basophil count as percentage of total leukocytes 0.7 0.0 - 1.0 04/28/2018 [facility] IM GRANULOCYTES % 0.3 0.0 - 1.0 04/28/2018 [facility] Automated blood neutrophil count 3.7 2.1 - 6.9 04/28/2018 [facility] Blood lymphocytes count (number/volume) 1.7 1.0 - 3.2 04/28/2018 [facility] Blood monocytes automated count (number/volume) 0.3 0.2 - 0.8 04/28/2018 [facility] Automated blood eosinophil count 0.1 0.0 - 0.4 04/28/2018 [facility] Automated blood basophil count (count/volume) 0.0 0.0 - 0.1 04/28/2018 [facility] Absolute Immature Granulocyte (auto 0.02 0 - 0.1 04/28/2018 [facility] Urine color determination YELLOW YELLOW 04/28/2018 [facility] Urine clarity HAZY CLEAR 04/28/2018 [facility] Specific gravity of Urine by Test strip 1.005 1.010 - 1.025 04/28/2018 [facility] Urine pH measurement by automated test strip 6 5 - 7 04/28/2018 [facility] Urine leukocyte esterase detection by dipstick NEGATIVE NEGATIVE 04/28/2018 [facility] Urine nitrite detection NEGATIVE NEGATIVE 04/28/2018 [facility] Urine protein measurement by test strip (mass/volume) NEGATIVE NEGATIVE 04/28/2018 [facility] Urine glucose detection NEGATIVE NEGATIVE 04/28/2018 [facility] Urine ketones detection by automated test strip NEGATIVE NEGATIVE 04/28/2018 [facility] Urine opiates screening test NEGATIVE NEGATIVE 04/28/2018 [facility] Barbiturates screen, urine NEGATIVE NEGATIVE 04/28/2018 [facility] Urine phencyclidine detection by screening method NEGATIVE NEGATIVE 04/28/2018 [facility] Urine amphetamines detection by screen method > 1000 ng/mL NEGATIVE NEGATIVE 04/28/2018 [facility] Urine Methamphetamines Screen NEGATIVE NEGATIVE 04/28/2018 [facility] Urine benzodiazepines detection by screening method POSITIVE NEGATIVE 04/28/2018 [facility] Urine cocaine measurement (mass/volume) NEGATIVE NEGATIVE 04/28/2018 [facility] Urine cannabinoids detection by screening method POSITIVE NEGATIVE 04/28/2018 [facility] Urine methadone screen NEGATIVE NEGATIVE 04/28/2018 [facility] Urine urobilinogen measurement by test strip (mass/volume) 0.2 0.2 - 1 04/28/2018 [facility] Urine total bilirubin measurement (mass/volume) NEGATIVE NEGATIVE 04/28/2018 [facility] Urine erythrocytes detection NEGATIVE NEGATIVE 04/28/2018 [facility] Automated urine sediment leukocyte count by microscopy (number/high power field) 0-5 0 - 5 04/28/2018 [facility] Erythrocytes detection in urine sediment by light microscopy 0-5 0 - 5 04/28/2018 [facility] Bacteria detection in urine sediment by light microscopy MODERATE NONE 04/28/2018 [facility] Epithelial cells detection in urine sediment by light microscopy MODERATE NONE 04/28/2018 [facility] Serum or plasma sodium measurement (moles/volume) 134 136 - 145 04/28/2018 [facility] Serum or plasma potassium measurement (moles/volume) 3.9 3.5 - 5.1 04/28/2018 [facility] Serum or plasma chloride measurement (moles/volume) 103 98 - 107 04/28/2018 [facility] Serum or plasma carbon dioxide, total measurement (moles/volume) 23 22 - 29 04/28/2018 [facility] Serum or plasma anion gap 11.9 8 - 16 04/28/2018 [facility] Serum or plasma urea nitrogen measurement (mass/volume) 11 7 - 26 04/28/2018 [facility] Serum or plasma creatinine measurement (mass/volume) 0.84 0.57 - 1.11 04/28/2018 [facility] Serum or plasma urea nitrogen/creatinine mass ratio 13 6 - 25 04/28/2018 [facility] Estimated glomerular filtration rate (GFR) determination > 60 60 04/28/2018 [facility] Glucose measurement 121 74 - 118 04/28/2018 [facility] Serum or plasma calcium measurement (mass/volume) 9.1 8.4 - 10.2 04/28/2018 [facility] Serum or plasma total bilirubin measurement (mass/volume) 0.3 0.2 - 1.2 04/28/2018 [facility] Aspartate Amino Transf (AST/SGOT) 19 5 - 34 04/28/2018 [facility] Serum or plasma alanine aminotransferase measurement (enzymatic activity/volume) 27 0 - 55 04/28/2018 [facility] Serum or plasma protein measurement (mass/volume) 6.9 6.5 - 8.1 04/28/2018 [facility] Serum or plasma albumin measurement (mass/volume) 3.6 3.5 - 5.0 04/28/2018 [facility] Plasma globulin measurement (mass/volume) 3.3 2.3 - 3.5 04/28/2018 [facility] Serum or plasma albumin/globulin mass ratio 1.1 0.8 - 2.0 04/28/2018 [facility] Serum or plasma alkaline phosphatase measurement (enzymatic activity/volume) 108 40 - 150 04/28/2018 [facility] Serum or plasma lipase measurement (enzymatic activity/volume) 29 8 - 78 04/28/2018 [facility] Serum or plasma choriogonadotropin ( test) detection NEGATIVE NEGATIVE 03/28/2018 [facility] Serum or plasma choriogonadotropin ( test) detection NEGATIVE NEGATIVE 03/28/2018 [facility] Serum or plasma amylase measurement (enzymatic activity/volume) 101 25 - 125 03/28/2018 [facility] Serum or plasma choriogonadotropin ( test) detection NEGATIVE NEGATIVE 03/28/2018 [facility] Serum or plasma choriogonadotropin ( test) detection NEGATIVE NEGATIVE 03/28/2018 [facility] Automated blood basophil count (count/volume) Automated blood basophil count (count/volume) 0.0 0.0 - 0.1 03/04/2018 [facility] Automated blood basophil count as percentage of total leukocytes Automated blood basophil count as percentage of total leukocytes 0.6 0.0 - 1.0 03/04/2018 [facility] Automated blood eosinophil count Automated blood eosinophil count 0.1 0.0 - 0.4 03/04/2018 [facility] Automated blood eosinophil count as percentage of total leukocytes Automated blood eosinophil count as percentage of total leukocytes 2.3 0.0 - 6.0 03/04/2018 [facility] Automated blood hematocrit (volume fraction) Automated blood hematocrit (volume fraction) 36.8 34.2 - 44.1 03/04/2018 [facility] Automated blood lymphocyte count as percentage ot total leukocytes Automated blood lymphocyte count as percentage ot total leukocytes 20.3 18.0 - 39.1 03/04/2018 [facility] Automated blood monocyte count as percentage of total leukocytes Automated blood monocyte count as percentage of total leukocytes 6.0 4.4 - 11.3 03/04/2018 [facility] Automated blood neutrophil count Automated blood neutrophil count 4.4 2.1 - 6.9 03/04/2018 [facility] Automated blood platelet count (count/volume) Automated blood platelet count (count/volume) 264 140 - 360 03/04/2018 [facility] Automated blood segmented neutrophil count as percentage of total leukocytes Automated blood segmented neutrophil count as percentage of total leukocytes 70.5 38.7 - 80.0 03/04/2018 [facility] Automated erythrocyte mean corpuscular hemoglobin (mass per erythrocyte) Automated erythrocyte mean corpuscular hemoglobin (mass per erythrocyte) 29.8 28 - 32 03/04/2018 [facility] Automated erythrocyte mean corpuscular hemoglobin concentration measurement (mass/volume) Automated erythrocyte mean corpuscular hemoglobin concentration measurement (mass/volume) 34.0 31 - 35 03/04/2018 [facility] Automated erythrocyte mean corpuscular volume Automated erythrocyte mean corpuscular volume 87.6 81 - 99 03/04/2018 [facility] Automated urine sediment leukocyte count by microscopy (number/high power field) Automated urine sediment leukocyte count by microscopy (number/high power field) NONE 0 - 5 03/04/2018 [facility] Bacteria detection in urine sediment by light microscopy Bacteria detection in urine sediment by light microscopy FEW NONE 03/04/2018 [facility] Blood erythrocytes automated count (number/volume) Blood erythrocytes automated count (number/volume) 4.20 3.6 - 5.1 03/04/2018 [facility] Blood hemoglobin measurement (moles/volume) Blood hemoglobin measurement (moles/volume) 12.5 12.0 - 16.0 03/04/2018 [facility] Blood leukocytes automated count (number/volume) Blood leukocytes automated count (number/volume) 6.21 4.8 - 10.8 03/04/2018 [facility] Blood lymphocytes count (number/volume) Blood lymphocytes count (number/volume) 1.3 1.0 - 3.2 03/04/2018 [facility] Blood monocytes automated count (number/volume) Blood monocytes automated count (number/volume) 0.4 0.2 - 0.8 03/04/2018 [facility] Epithelial cells detection in urine sediment by light microscopy Epithelial cells detection in urine sediment by light microscopy FEW NONE 03/04/2018 [facility] Erythrocytes detection in urine sediment by light microscopy Erythrocytes detection in urine sediment by light microscopy null 0 - 5 03/04/2018 [facility] Estimated glomerular filtration rate (GFR) determination Estimated glomerular filtration rate (GFR) determination null 60 03/04/2018 [facility] Glucose measurement Glucose measurement 122 74 - 118 03/04/2018 [facility] Plasma globulin measurement (mass/volume) Plasma globulin measurement (mass/volume) 3.2 2.3 - 3.5 03/04/2018 [facility] Serum or plasma alanine aminotransferase measurement (enzymatic activity/volume) Serum or plasma alanine aminotransferase measurement (enzymatic activity/volume) 24 0 - 55 03/04/2018 [facility] Serum or plasma albumin measurement (mass/volume) Serum or plasma albumin measurement (mass/volume) 3.5 3.5 - 5.0 03/04/2018 [facility] Serum or plasma albumin/globulin mass ratio Serum or plasma albumin/globulin mass ratio 1.1 0.8 - 2.0 03/04/2018 [facility] Serum or plasma alkaline phosphatase measurement (enzymatic activity/volume) Serum or plasma alkaline phosphatase measurement (enzymatic activity/volume) 107 40 - 150 03/04/2018 [facility] Serum or plasma anion gap Serum or plasma anion gap 15.3 8 - 16 03/04/2018 [facility] Serum or plasma calcium measurement (mass/volume) Serum or plasma calcium measurement (mass/volume) 9.3 8.4 - 10.2 03/04/2018 [facility] Serum or plasma carbon dioxide, total measurement (moles/volume) Serum or plasma carbon dioxide, total measurement (moles/volume) 22 22 - 29 03/04/2018 [facility] Serum or plasma chloride measurement (moles/volume) Serum or plasma chloride measurement (moles/volume) 105 98 - 107 03/04/2018 [facility] Serum or plasma creatinine measurement (mass/volume) Serum or plasma creatinine measurement (mass/volume) 0.99 0.57 - 1.11 03/04/2018 [facility] Serum or plasma lipase measurement (enzymatic activity/volume) Serum or plasma lipase measurement (enzymatic activity/volume) 32 8 - 78 03/04/2018 [facility] Serum or plasma potassium measurement (moles/volume) Serum or plasma potassium measurement (moles/volume) 4.3 3.5 - 5.1 03/04/2018 [facility] Serum or plasma protein measurement (mass/volume) Serum or plasma protein measurement (mass/volume) 6.7 6.5 - 8.1 03/04/2018 [facility] Serum or plasma sodium measurement (moles/volume) Serum or plasma sodium measurement (moles/volume) 138 136 - 145 03/04/2018 [facility] Serum or plasma total bilirubin measurement (mass/volume) Serum or plasma total bilirubin measurement (mass/volume) 0.2 0.2 - 1.2 03/04/2018 [facility] Serum or plasma urea nitrogen measurement (mass/volume) Serum or plasma urea nitrogen measurement (mass/volume) 16 7 - 26 03/04/2018 [facility] Serum or plasma urea nitrogen/creatinine mass ratio Serum or plasma urea nitrogen/creatinine mass ratio 16 6 - 25 03/04/2018 [facility] Specific gravity of Urine by Test strip Specific gravity of Urine by Test strip 1.010 1.010 - 1.025 03/04/2018 [facility] Urine clarity Urine clarity SL CLOUDY CLEAR 03/04/2018 [facility] Urine color determination Urine color determination YELLOW YELLOW 03/04/2018 [facility] Urine erythrocytes detection Urine erythrocytes detection 3+ NEGATIVE 03/04/2018 [facility] Urine glucose detection Urine glucose detection NEGATIVE NEGATIVE 03/04/2018 [facility] Urine ketones detection by automated test strip Urine ketones detection by automated test strip NEGATIVE NEGATIVE 03/04/2018 [facility] Urine leukocyte esterase detection by dipstick Urine leukocyte esterase detection by dipstick NEGATIVE NEGATIVE 03/04/2018 [facility] Urine nitrite detection Urine nitrite detection NEGATIVE NEGATIVE 03/04/2018 [facility] Urine pH measurement by automated test strip Urine pH measurement by automated test strip 6 5 - 7 03/04/2018 [facility] Urine protein measurement by test strip (mass/volume) Urine protein measurement by test strip (mass/volume) NEGATIVE NEGATIVE 03/04/2018 [facility] Urine total bilirubin measurement (mass/volume) Urine total bilirubin measurement (mass/volume) NEGATIVE NEGATIVE 03/04/2018 [facility] Urine urobilinogen measurement by test strip (mass/volume) Urine urobilinogen measurement by test strip (mass/volume) 0.2 0.2 - 1 03/04/2018 [facility] Red Cell Distribution Width 13.8 11.7 - 14.4 03/04/2018 [facility] IM GRANULOCYTES % 0.3 0.0 - 1.0 03/04/2018 [facility] Absolute Immature Granulocyte (auto 0.02 0 - 0.1 03/04/2018 [facility] Aspartate Amino Transf (AST/SGOT) 20 5 - 34 03/04/2018 [facility] Capillary blood glucose measurement by glucometer (mass/volume) 106 70 - 120 02/09/2018 [facility] Capillary blood glucose measurement by glucometer (mass/volume) 106 70 - 120 02/09/2018 [facility] Capillary blood glucose measurement by glucometer (mass/volume) 106 70 - 120 02/09/2018 [facility] Capillary blood glucose measurement by glucometer (mass/volume) Capillary blood glucose measurement by glucometer (mass/volume) 106 70 - 120 02/09/2018 [facility] Urine human chorionic gonadotropin (hCG) detection NEGATIVE NEGATIVE 02/09/2018 [facility] Urine human chorionic gonadotropin (hCG) detection Urine human chorionic gonadotropin (hCG) detection NEGATIVE NEGATIVE 02/09/2018 [facility] Serum or plasma creatine kinase measurement (enzymatic activity/volume) 75 29 - 168 01/21/2018 [facility] Serum or plasma creatine kinase MB measurement (mass/volume) 0.40 0 - 5.0 01/21/2018 [facility] Troponin I measurement by highly sensitive enzyme immunoassay < 0.001 0 - 0.300 01/21/2018 [facility] Troponin I measurement by highly sensitive enzyme immunoassay < 0.001 0 - 0.300 01/21/2018 [facility] Serum or plasma creatine kinase measurement (enzymatic activity/volume) 75 29 - 168 01/21/2018 [facility] Serum or plasma creatine kinase MB measurement (mass/volume) 0.40 0 - 5.0 01/21/2018 [facility] Troponin I measurement by highly sensitive enzyme immunoassay < 0.001 0 - 0.300 01/21/2018 [facility] Barbiturates screen, urine Barbiturates screen, urine NEGATIVE NEGATIVE 01/21/2018 [facility] Serum or plasma amylase measurement (enzymatic activity/volume) Serum or plasma amylase measurement (enzymatic activity/volume) 96 25 - 125 01/21/2018 [facility] Serum or plasma choriogonadotropin ( test) detection Serum or plasma choriogonadotropin ( test) detection NEGATIVE NEGATIVE 01/21/2018 [facility] Serum or plasma creatine kinase MB measurement (mass/volume) Serum or plasma creatine kinase MB measurement (mass/volume) 0.40 0 - 5.0 01/21/2018 [facility] Serum or plasma creatine kinase measurement (enzymatic activity/volume) Serum or plasma creatine kinase measurement (enzymatic activity/volume) 75 29 - 168 01/21/2018 [facility] Troponin I measurement by highly sensitive enzyme immunoassay Troponin I measurement by highly sensitive enzyme immunoassay null 0 - 0.300 01/21/2018 [facility] Urine amphetamines detection by screen method > 1000 ng/mL Urine amphetamines detection by screen method > 1000 ng/mL NEGATIVE NEGATIVE 01/21/2018 [facility] Urine benzodiazepines detection by screening method Urine benzodiazepines detection by screening method POSITIVE NEGATIVE 01/21/2018 [facility] Urine cannabinoids detection by screening method Urine cannabinoids detection by screening method POSITIVE NEGATIVE 01/21/2018 [facility] Urine cocaine measurement (mass/volume) Urine cocaine measurement (mass/volume) NEGATIVE NEGATIVE 01/21/2018 [facility] Urine opiates screening test Urine opiates screening test NEGATIVE NEGATIVE 01/21/2018 [facility] Urine phencyclidine detection by screening method Urine phencyclidine detection by screening method NEGATIVE NEGATIVE 01/21/2018 [facility] Urine Methamphetamines Screen NEGATIVE NEGATIVE 01/21/2018 [facility] Mucus detection in urine sediment by light microscopy FEW RARE 10/26/2017 [facility] Mucus detection in urine sediment by light microscopy FEW RARE 10/26/2017 [facility] Mucus detection in urine sediment by light microscopy FEW RARE 10/26/2017 [facility] Mucus detection in urine sediment by light microscopy Mucus detection in urine sediment by light microscopy FEW RARE 10/26/2017 [facility] Serum or plasma conjugated bilirubin measurement (mass/volume) 0.1 0.0 - 0.5 08/21/2017 [facility] Serum or plasma conjugated bilirubin measurement (mass/volume) 0.1 0.0 - 0.5 08/21/2017 [facility] Serum or plasma conjugated bilirubin measurement (mass/volume) Serum or plasma conjugated bilirubin measurement (mass/volume) 0.1 0.0 - 0.5 08/21/2017 [facility] Blood culture NO GROWTH AFTER 5 DAYS, FINAL REPORT 08/20/2017 [facility] Blood culture NO GROWTH AFTER 5 DAYS, FINAL REPORT 08/20/2017 [facility] Blood culture Blood culture NO GROWTH AFTER 5 DAYS, FINAL REPORT 08/20/2017 [facility] Hemoglobin A1c Percent 4.9 4.0 - 7.0 08/20/2017 [facility] Hemoglobin A1c Percent 4.9 4.0 - 7.0 08/20/2017 [facility] Serum or plasma triglyceride measurement (mass/volume) 113 0 - 149 08/20/2017 [facility] Serum or plasma cholesterol measurement (mass/volume) 227 0 - 199 08/20/2017 [facility] Serum or plasma cholesterol in LDL measurement (mass/volume) 141 60 - 130 08/20/2017 [facility] Serum or plasma cholesterol in HDL measurement (mass/volume) 63 40 - 60 08/20/2017 [facility] Serum or plasma total cholesterol/cholesterol in HDL mass ratio 3.6 3.0 - 3.6 08/20/2017 [facility] Serum or plasma total cholesterol/cholesterol in HDL mass ratio 3.6 3.0 - 3.6 08/20/2017 [facility] Serum or plasma cholesterol in HDL measurement (mass/volume) Serum or plasma cholesterol in HDL measurement (mass/volume) 63 40 - 60 08/20/2017 [facility] Serum or plasma cholesterol in LDL measurement (mass/volume) Serum or plasma cholesterol in LDL measurement (mass/volume) 141 60 - 130 08/20/2017 [facility] Serum or plasma cholesterol measurement (mass/volume) Serum or plasma cholesterol measurement (mass/volume) 227 0 - 199 08/20/2017 [facility] Serum or plasma total cholesterol/cholesterol in HDL mass ratio Serum or plasma total cholesterol/cholesterol in HDL mass ratio 3.6 3.0 - 3.6 08/20/2017 [facility] Serum or plasma triglyceride measurement (mass/volume) Serum or plasma triglyceride measurement (mass/volume) 113 0 - 149 08/20/2017 [facility] Transitional cells detection in urine sediment by light microscopy RARE NONE 08/05/2017 [facility] Transitional cells detection in urine sediment by light microscopy Transitional cells detection in urine sediment by light microscopy RARE NONE 08/05/2017 [facility] Urine color determination YELLOW YELLOW [facility] Urine clarity CLEAR CLEAR [facility] Specific gravity of Urine by Test strip 1.010 1.010 - 1.025 [facility] Urine pH measurement by automated test strip 6 5 - 7 [facility] Urine leukocyte esterase detection by dipstick NEGATIVE NEGATIVE [facility] Urine nitrite detection NEGATIVE NEGATIVE [facility] Urine protein measurement by test strip (mass/volume) NEGATIVE NEGATIVE [facility] Urine glucose detection NEGATIVE NEGATIVE [facility] Urine ketones detection by automated test strip NEGATIVE NEGATIVE [facility] Urine urobilinogen measurement by test strip (mass/volume) 0.2 0.2 - 1 [facility] Urine total bilirubin measurement (mass/volume) NEGATIVE NEGATIVE [facility] Urine erythrocytes detection NEGATIVE NEGATIVE [facility] Automated urine sediment leukocyte count by microscopy (number/high power field) 6-10 0 - 5 [facility] Erythrocytes detection in urine sediment by light microscopy NONE 0 - 5 [facility] Bacteria detection in urine sediment by light microscopy NONE NONE [facility] Epithelial cells detection in urine sediment by light microscopy FEW NONE [facility] Bacterial urine culture Urine Culture [facility] Vital Signs Vital Sign Value Date Comments [...] DC Date Status Source Departed Emergency Room [id number] MARTA BARROW MD 07/03/2017 07/03/2017 [facility] Departed Emergency Room [id number] MADELINE MCKEON MD 07/30/2017 07/30/2017 [facility] Departed Emergency Room [id number] MADELINE GILBERT MD 08/05/2017 08/05/2017 [facility] Discharged Inpatient [id number] NEELIMA TILLEY MD 08/20/2017 08/24/2017 [facility] Departed Emergency Room [id number] COLLETTE MARTINEZ MD 09/09/2017 09/09/2017 [facility] Est Patient Detailed - [id number] Bogdan Hand MD 09/25/2017 [facility] Patient Detailed - [id number] Bogdan Hand MD 10/21/2017 [facility] [id number] MADELINE GILBERT MD 10/26/2017 10/26/2017 [facility] Departed Emergency Room [id number] CANDE LOUIS MD 11/17/2017 11/17/2017 [facility] Est Patient Detailed - [id number] Bogdan Hand MD 11/20/2017 [facility] Departed Emergency Room [id number] MADELINE GILBERT MD 12/04/2017 12/04/2017 [facility] Est Patient Detailed - [id number] Bogdan Hand MD 12/13/2017 [facility] Est Patient Detailed - 77415 [id number] Bogdan Hand MD 01/15/2018 [facility] Departed Emergency Room [id number] SEEMA TINAJERO MD 01/21/2018 01/21/2018 [facility] Est Patient Detailed - [id number] Bogdan Hand MD 02/07/2018 [facility] Departed Emergency Room [id number] COLLETTE MARTINEZ MD 02/09/2018 02/09/2018 [facility] Est Patient Exp Problem - 15363 [id number] Bogdan Hand MD 02/17/2018 [facility] Departed Emergency Room [id number] SEEMA TINAJERO MD 03/04/2018 03/04/2018 [facility] Patient Exp Problem - 35551 [id number] Bogdan Hand MD 03/17/2018 [facility] Departed Emergency Room [id number] DANIAL ÁLVAREZ MD 03/28/2018 03/28/2018 [facility] Departed Emergency Room [id number] EROS SIDHU MD 03/31/2018 03/31/2018 [facility] Departed Emergency Room [id number] EROS SIDHU MD 04/09/2018 04/09/2018 [facility] Patient Detailed - [id number] Bogdan Hand MD 04/14/2018 [facility] Departed Emergency Room [id number] SEEMA TINAJERO MD 04/28/2018 04/28/2018 [facility] Est Patient Detailed - [id number] Bogdan Hand MD 05/05/2018 [facility] Departed Emergency Room [id number] EROS SIDHU MD 06/03/2018 06/03/2018 [facility] Est Patient Exp Problem - 81157 [id number] Bogdan Hand MD 06/09/2018 [facility] Departed Emergency Room [id number] MADELINE GILBERT MD 06/15/2018 06/15/2018 [facility] Est Patient Detailed - 14523 [id number] Bogdan Hand MD 07/07/2018 [facility] Est Patient Detailed - 63249 [id number] Bogdan Hand MD 07/28/2018 [facility] Departed Emergency Room [id number] COLLETTE MARTINEZ MD 08/05/2018 08/05/2018 [facility] Departed Emergency Room [id number] EROS SIDHU MD 08/08/2018 08/08/2018 [facility] Est Patient Exp Problem - 02454 [id number] Bogdan Hand MD 09/22/2018 [facility] Procedures Procedure Code Date Perfomer Comments Source Psychotherapy 45 (38-52*) min - 15706 (with patient and/or family member) 89722 09/07/2018 [facility] of abdomen and pelvis without contrast [id number] 08/05/2018 [facility] of abdomen and pelvis without contrast [id number] 06/03/2018 SWEET [facility] Computed tomography of abdomen and pelvis with contrast 531619357 03/28/2018 [facility] Computed tomography of abdomen and pelvis with contrast 813283691 03/04/2018 [facility] Computed tomography of chest with contrast 73175783 03/04/2018 [facility] Psychotherapy 45 (38-52*) min - 04964 (with patient and/or family member) 50818 02/26/2018 [facility] Diagnostic evaluation (no medical) - 21909 83397 02/10/2018 [facility] [employer] [facility] Computed tomography of abdomen and pelvis with contrast [id number] 01/21/2018 [facility] Computed tomography of lumbar spine with contrast [id number] 01/21/2018 [facility] Computed tomography of abdomen and pelvis with contrast [id number] 12/04/2017 [facility] Computed tomography of abdomen and pelvis with contrast [id number] 11/17/2017 MANEEVESE [facility] Computed tomography of abdomen and pelvis with contrast [id number] 10/26/2017 SHORT [facility] Diagnostic evaluation with medical - 92530 68109 08/31/2017 [facility] Computed tomography of abdomen with contrast 17563037 08/23/2017 [facility] Computed tomography of abdomen and pelvis with contrast [id number] 08/20/2017 [facility] CT of abdomen and pelvis without contrast [id number] 08/05/2017 [facility] CT of abdomen and pelvis without contrast [id number] [facility] [id number] 07/03/2017 [facility]
--- OUTSIDE RECORDS SUMMARY | 2018-10-01 07:56 | XMS REPORT ---
Author Author Admin, [place] Organization [facility] Address [address] [address] Phone Allergies, Adverse Reactions, Alerts Allergy Name [...] daily with the 20mg tablet ESCITALOPRAM OXALATE 00754520021 Active Bogdan Hand MD Active KLONOPIN 2 MG ORAL TABLET Take one tablet By Mouth daily as needed for anxiety CLONAZEPAM 92632352989 Active Bogdan Hand MD Active TRAZODONE HCL 300 MG ORAL TABLET Take one tablet By Mouth at bedtime TRAZODONE HCL 73276581599 Active Bogdan Hand MD Active AMITRIPTYLINE HCL 150 MG ORAL TABLET Take two tablets By Mouth at bedtime AMITRIPTYLINE HCL 71929523002 Active Bogdan Hand MD Active PRAZOSIN HCL 5 MG ORAL CAPSULE Take 3 capsules By Mouth at bedtime PRAZOSIN HCL 22932457378 Active Bogdan Hand MD Active LEXAPRO 20 MG ORAL TABLET Take one tablet By Mouth daily with the 10mg tablet ESCITALOPRAM OXALATE 12726356668 Active Bogdan Hand MD Active VALIUM 10 MG ORAL TABLET Take one tablet By Mouth at bedtime for breakthrough anxiety DIAZEPAM 38536860140 Active Bogdan Hand MD Active WELLBUTRIN XL 150 MG ORAL TABLET EXTENDED RELEASE 24 HOUR Take one tablet By Mouth daily WELLBUTRIN XL 150 MG ORAL TABLET EXTENDED RELEASE 24 HOUR BUPROPION HCL Inactive LUNESTA 3 MG ORAL TABLET Take one tablet By Mouth at bedtime LUNESTA 3 MG ORAL TABLET 669751 ESZOPICLONE Inactive ZYPREXA 10 MG ORAL TABLET Take one tablet By Mouth daily ZYPREXA 10 MG ORAL TABLET 649844 OLANZAPINE Inactive LUNESTA 3 MG ORAL TABLET Take one tablet at bedtime LUNESTA 3 MG ORAL TABLET 458117 ESZOPICLONE Inactive DIAZEPAM 5 MG TABS TAKE 1 TABLET BY MOUTH AT BEDTIME NEEDED FOR BREAKTHROUGH ANXIETY DIAZEPAM 5 MG TABS 851581 DIAZEPAM Inactive WELLBUTRIN XL 150 MG ORAL TABLET EXTENDED RELEASE 24 HOUR Take one tablet By Mouth daily BUPROPION HCL 92420083181 No Longer Active Bogdan Hand MD Active LUNESTA 3 MG ORAL TABLET Take one tablet By Mouth at bedtime ESZOPICLONE 30328224606 No Longer Active Bogdan Hand MD Active TEMAZEPAM 30 MG ORAL CAPSULE Take one capsule By Mouth By Mouth at bedtime TEMAZEPAM 38469998616 No Longer Active Bogdan Hand MD Active ZYPREXA 10 MG ORAL TABLET Take one tablet By Mouth daily OLANZAPINE 29093884673 No Longer Active Bogdan Hand MD Active LORAZEPAM 2 MG ORAL TABLET Take one tablet By Mouth TID as needed for anxiety LORAZEPAM 01371145806 No Longer Active Bogdan Hand MD Active LUNESTA 3 MG ORAL TABLET Take one tablet at bedtime ESZOPICLONE 03623421911 No Longer Active Bogdan Hand MD Active DIAZEPAM 5 MG TABS TAKE 1 TABLET BY MOUTH AT BEDTIME NEEDED FOR BREAKTHROUGH ANXIETY DIAZEPAM 88798341756 No Longer Active Bogdan Hand MD Active [...] rate weight E&M 215 [lb_av] Weight Measured Encounters Date Encounter Provider Code Facility 08:20:15 CDT Est Patient Exp Problem - 63747 Bogdan Hand MD CPT-85174 [facility] 14:54:55 [employer]ULTANT Est Patient Detailed - 47674 Bogdan Hand MD CPT-99096 [facility] 09:55:59 [employer] Est Patient Detailed - 28486 Bogdan Hand MD CPT-21889 [facility] 10:20:33 [employer] Est Patient Exp Problem - 19802 Bogdan Hand MD CPT-55825 [facility] 10:36:05 [employer] CONSULTANT Est Patient Detailed - 70269 Bogdan Hand MD CPT-28305 [facility] 11:34:27 [employer]SULTANT Est Patient Detailed - 18553 Bogdan Hand MD CPT-76967 [facility] 10:47:07 CDT Est Patient Exp Problem - 87008 Bogdan Hand MD CPT-46806 [facility] 08:46:49 CDT Est Patient Exp Problem - 49349 Bogdan Hand MD CPT-09694 [facility] 08:33:08 CDT Est Patient Detailed - 38066 Bogdan Hand MD CPT-53921 [facility] 08:31:14 CDT Est Patient Detailed - 12590 Bogdan Hand MD CPT-01713 [facility] 13:41:13 CDT Est Patient Detailed - 48970 Bogdan Hand MD CPT-99682 [facility] 19:16:18 CDT Est Patient Detailed - 71757 Bogdan Hand MD CPT-29701 [facility] 09:08:54 CDT Est Patient Detailed - 05207 Bogdan Hand MD CPT-66944 [facility] 08:21:45 CDT Est Patient Detailed - 18283 Bogdan Hand MD CPT-29296 [facility] Procedures Code Procedure Name Date Entry Date Standard Description CPT-49289 Psychotherapy 45 (38-52*) min - 69748 (with patient and/or family member) 14:56:48 CDT CPT-31530 Psychotherapy 45 (38-52*) min - 30536 (with patient and/or family member) 13:05:22 CDT CPT-59852 Diagnostic evaluation (no medical) - 08238 10:06:21 CDT CPT-03407 Diagnostic evaluation with medical - 30855 20:46:14 CDT
--- OUTSIDE RECORDS SUMMARY | 2018-10-01 07:57 | XMS REPORT ---
Author Author Admin, [place] Organization [facility] Address [address] [address] Phone Allergies, Adverse Reactions, Alerts Allergy Name [...] daily with the 20mg tablet ESCITALOPRAM OXALATE 35205266138 Active Bogdan Hand MD Active KLONOPIN 2 MG ORAL TABLET Take one tablet By Mouth daily as needed for anxiety CLONAZEPAM 63156804482 Active Bogdan Hand MD Active TRAZODONE HCL 300 MG ORAL TABLET Take one tablet By Mouth at bedtime TRAZODONE HCL 43548649779 Active Bogdan Hand MD Active AMITRIPTYLINE HCL 150 MG ORAL TABLET Take two tablets By Mouth at bedtime AMITRIPTYLINE HCL 31839588169 Active Bogdan Hand MD Active PRAZOSIN HCL 5 MG ORAL CAPSULE Take 3 capsules By Mouth at bedtime PRAZOSIN HCL 86048936841 Active Bogdan Hand MD Active LEXAPRO 20 MG ORAL TABLET Take one tablet By Mouth daily with the 10mg tablet ESCITALOPRAM OXALATE 57714808561 Active Bogdan Hand MD Active VALIUM 10 MG ORAL TABLET Take one tablet By Mouth at bedtime for breakthrough anxiety DIAZEPAM 99732546432 Active Bogdan Hand MD Active WELLBUTRIN XL 150 MG ORAL TABLET EXTENDED RELEASE 24 HOUR Take one tablet By Mouth daily WELLBUTRIN XL 150 MG ORAL TABLET EXTENDED RELEASE 24 HOUR BUPROPION HCL Inactive LUNESTA 3 MG ORAL TABLET Take one tablet By Mouth at bedtime LUNESTA 3 MG ORAL TABLET 754152 ESZOPICLONE Inactive ZYPREXA 10 MG ORAL TABLET Take one tablet By Mouth daily ZYPREXA 10 MG ORAL TABLET 131472 OLANZAPINE Inactive LUNESTA 3 MG ORAL TABLET Take one tablet at bedtime LUNESTA 3 MG ORAL TABLET 529735 ESZOPICLONE Inactive DIAZEPAM 5 MG TABS TAKE 1 TABLET BY MOUTH AT BEDTIME NEEDED FOR BREAKTHROUGH ANXIETY DIAZEPAM 5 MG TABS 885152 DIAZEPAM Inactive WELLBUTRIN XL 150 MG ORAL TABLET EXTENDED RELEASE 24 HOUR Take one tablet By Mouth daily BUPROPION HCL 20632472264 No Longer Active Bogdan Hand MD Active LUNESTA 3 MG ORAL TABLET Take one tablet By Mouth at bedtime ESZOPICLONE 46569008165 No Longer Active Bogdan Hand MD Active TEMAZEPAM 30 MG ORAL CAPSULE Take one capsule By Mouth By Mouth at bedtime TEMAZEPAM 78694757283 No Longer Active Bogdan Hand MD Active ZYPREXA 10 MG ORAL TABLET Take one tablet By Mouth daily OLANZAPINE 67238977342 No Longer Active Bogdan Hand MD Active LORAZEPAM 2 MG ORAL TABLET Take one tablet By Mouth TID as needed for anxiety LORAZEPAM 48031178049 No Longer Active Bogdan Hand MD Active LUNESTA 3 MG ORAL TABLET Take one tablet at bedtime ESZOPICLONE 21580978347 No Longer Active Bogdan Hand MD Active DIAZEPAM 5 MG TABS TAKE 1 TABLET BY MOUTH AT BEDTIME NEEDED FOR BREAKTHROUGH ANXIETY DIAZEPAM 10202923459 No Longer Active Bogdan Hand MD Active [...] rate weight E&M 213.13 [lb_av] Weight Measured Encounters Date Encounter Provider Code Facility 14:54:55 DRAPERY SEW[employer] HAND Est Patient Detailed - 89338 Bogdan Hand MD CPT-68781 [facility] 09:55:59 [employer]ERY SE[employer] HAND Est Patient Detailed - 34729 Bogdan Hand MD CPT-19728 [facility] 10:20:33 [employer] SE[employer] HAND Est Patient Exp Problem - 61740 Bogdan Hand MD CPT-35419 [facility] 10:36:05 [employer] Est Patient Detailed - 54911 Bogdan Hand MD CPT-66143 [facility] 11:34:27 [employer] Est Patient Detailed - 95786 Bogdan Hand MD CPT-68510 [facility] 10:47:07 CDT Est Patient Exp Problem - 96869 Bogdan Hand MD CPT-72737 [facility] 08:46:49 CDT Est Patient Exp Problem - 18257 Bogdan Hand MD CPT-12544 [facility] 08:33:08 CDT Est Patient Detailed - 89076 Bogdan Hand MD CPT-06523 [facility] 08:31:14 CDT Est Patient Detailed - 88836 Bogdan Hand MD CPT-50567 [facility] 13:41:13 CDT Est Patient Detailed - 36709 Bogdan Hand MD CPT-16772 [facility] 19:16:18 CDT Est Patient Detailed - 92561 Bogdan Hand MD CPT-51428 [facility] 09:08:54 CDT Est Patient Detailed - 16470 Bogdan Hand MD CPT-90889 [facility] 08:21:45 CDT Est Patient Detailed - 61650 Bogdan Hand MD CPT-37066 [facility] Procedures Code Procedure Name Date Entry Date Standard Description CPT-39287 Psychotherapy 45 (38-52*) min - 61776 (with patient and/or family member) 14:56:48 CDT CPT-57125 Psychotherapy 45 (38-52*) min - 66328 (with patient and/or family member) 13:05:22 CDT CPT-42187 Diagnostic evaluation (no medical) - 26890 10:06:21 CDT CPT-57079 Diagnostic evaluation with medical - 29044 20:46:14 CDT
--- NOTE | 2018-10-01 08:40 | NUR ---
faxed over medical release to [facility] at [phone] called [facility] sup and spoke to issa and called med records to speak to a person and only a voice mail that wont let you leave a messg. notified.
[2018-10-01 09:03] LABS: BILIRUBIN,URINE NEGATIVE (NEGATIVE); CLARITY,URINE SL CLOUDY (CLEAR); COLOR,URINE YELLOW (YELLOW); KETONES,URINE NEGATIVE (NEGATIVE); LEUKOCYTE ESTERASE ,URINE TRACE (NEGATIVE); NITRITE,URINE NEGATIVE (NEGATIVE); PROTEIN,URINE DIPSTICK NEGATIVE (NEGATIVE); URINE UROBILINOGEN 0.2 mg/dL (0.2 - 1)
--- NOTE | 2018-10-01 09:54 | Diagnostic Imaging Report ---
EXAM: CT Abdomen and Pelvis WITHOUT contrast INDICATION: Renal stone. COMPARISON: CT Abdomen/Pelvis 08/05/2018. TECHNIQUE: Abdomen and pelvis were scanned utilizing a multidetector helical scanner from the lung base to the pubic symphysis without administration of IV contrast. Absence of intravenous contrast decreases sensitivity for detection of focal lesions and vascular pathology. Coronal and sagittal reformations were obtained. Stone protocol is performed. IV CONTRAST: None. ORAL CONTRAST: Water RADIATION DOSE: Total DLP: 917.3 mGy*cm Dose modulation, iterative reconstruction, and/or weight based adjustment of the mA/kV was utilized to reduce the radiation dose to as low as reasonably achievable. FINDINGS: LINES and TUBES: None. LOWER THORAX: Patchy dependent atelectasis. HEPATOBILIARY: Diffuse fatty liver. No focal hepatic lesions. No biliary ductal dilation. Status post cholecystectomy. SPLEEN: No splenomegaly. PANCREAS: No focal masses or ductal dilatation. ADRENALS: No adrenal nodules KIDNEYS/URETERS: No hydronephrosis. No cystic or solid mass lesions. There is a 5 mm left mid pole renal stone. Punctate bilateral 1 to 2 mm renal stones are unchanged. GI TRACT: No abnormal distention, wall thickening, or evidence of bowel obstruction. Appendix is normal. PELVIC ORGANS/BLADDER: Status post hysterectomy. The bladder is unremarkable in appearance. LYMPH NODES: No lymphadenopathy. VESSELS: Unremarkable. PERITONEUM / RETROPERITONEUM: No free air. Trace pelvic free fluid. BONES/SOFT TISSUES: No acute bony findings. Stable postoperative appearance of the anterior abdominal wall mesh repair. No evidence of recurrent hernia. IMPRESSION: Bilateral nonobstructing renal stones, measuring up to 5 mm in the left mid pole. Hepatic steatosis. Signed by: Dr. Evaristo Christina MD on 10/01/2018 9:50 AM
[2018-10-01 09:55] LABS: BACTERIA,URINE FEW /HPF; EPITHELIAL CELLS,URINE FEW /LPF
[2018-10-01 10:40] VITALS: BP 107/67
== END 2018-10-01 10:54 | disposition home or self-care (01) ==
LOC: ER 07:52
DX: M54.5 Low back pain (principal); S39.012A Strain of muscle, fascia and tendon of lower back, initial encounter; G89.29 Other chronic pain; N30.90 Cystitis, unspecified without hematuria; F41.9 Anxiety disorder, unspecified; Z87.442 Personal history of urinary calculi; Z86.39 Personal history of other endocrine, nutritional and metabolic disease
CPT/HCPCS: 74176; 81001; 87086; 87186; 99283

== ENCOUNTER 2018-11-09 20:44 | Observation (INO) | payer OTHER ==
[~2018-11-09] VITALS: Ht 162.6 cm; Wt 107.7 kg
--- OUTSIDE RECORDS SUMMARY | 2018-11-09 20:48 | XMS REPORT | Clinical Summary ---
Author Author [facility] Organization [facility] Address Unknown Phone Unavailable Care Team Providers Care Electric Meter Technician Name Role Phone Asked, No Pcp PCP [...] (Primary Dx) 03/05/2018 Emergency Emergency Medicine after 11/08/2017 Social History Date Tobacco Use Types Packs/Day [...] Health Maintenance Due Date Last Done Comments INFLUENZA VACCINE 12/30/2018 Procedures Comments Procedure Name [...] 12-LEAD STAT 03/05/2018 9:02 AM CDT after 11/08/2017 Results * Lactic acid level, SEPSIS - Now and repeat 2x every 3 hours (03/05/2018 1:15 PM CDT) Only the most recent of 2 results within the time period is included. Lactic acid 1.4 0.5 - 2.2 mmol/L [facility] DEPARTMENT OF PATHOLOGY AND GENOMIC MEDICINE Specimen Blood Performing Organization Address City/State/Zipcode Phone Number [facility] DEPARTMENT OF [address] [place] [address] PATHOLOGY AND GENOMIC MEDICINE * CT Chest W Contrast Abdomen W Contrast Pelvis W Contrast (03/05/2018 1:02 PM CDT) Specimen Narrative Performed At EXAMINATION:CT CHEST W CONTRAST [...] No fluid collections. IMPRESSION: No acute abnormality. [id number] Procedure Note Hm Interface, Radiology Results Incoming [...] No fluid collections. IMPRESSION: No acute abnormality. [id number] Performing Organization Address City/State/[facility] [address] * Estimated GFR (03/05/2018 10:15 AM CDT) [facility] Estimated GFR 87 mL/min/1.73 m2 [facility] DEPARTMENT Comment: OF PATHOLOGY CatergoryUnitsInte AND GENOMIC rpretation MEDICINE G1 >=90 Normal or high G2 60-89Mildly decreased [id number] Mildly to moderately decreased [id number] Moderately to severely decreased G4 15-29Severely decreased G5 <15Kidney failure The eGFR was calculated using the Chronic Kidney Disease Epidemiology Collaboration (CKD-EPI) equation. Interpretation is based on recommendations of the National Kidney Foundation-Kidney Disease Outcomes Quality Initiative (NKF-KDOQI) published in 2014. Specimen Plasma specimen Performing Organization Address [facility] Centercode Phone Number [facility] [place] [address] PATHOLOGY AND [facility] * Troponin (03/05/2018 10:15 AM CDT) [facility] Troponin <0.30 0.00 - 0.30 ng/mL [facility] DEPARTMENT Comment: OF PATHOLOGY 0.30 - 1.49 AND GENOMIC ng/mlMay MEDICINE indicate increased risk of acute coronary syndrome. >=1.5 ng/ml Consistent with acute myocardial infarction. The diagnostic value of a single normal or non-diagnostic result is questionable.Serial samples at 2-6 hour intervals are required to rule out acute myocardial injury. Specimen Plasma specimen Performing Organization Address [facility] Cent[facility]ode Phone Number [facility] DEPARTMENT OF [address] [place] [address] PATHOLOGY AND [facility] * Partial thromboplastin time, activated (03/05/2018 10:15 AM CDT) [facility] PTT 29.9 23.0 - 36.0 sec [facility] DEPARTMENT Comment: OF PATHOLOGY PTT therapeutic range for AND GENOMIC unfractionated heparin is MEDICINE 61.0-112.0 seconds which corresponds to Anti-Xa 0.3-0.7 U/ml. Specimen Blood Performing Organization Address [facility]/Zipcode Phone Number [facility] DEPARTMENT OF [address] [place] [address] PATHOLOGY AND [facility] * Prothrombin time with INR (03/05/2018 10:15 AM CDT) [facility] Prothrombin 14.1 12.0 - 15.0 sec [facility] DEPARTMENT time OF PATHOLOGY AND GENOMIC MEDICINE INR 1.1 [facility] DEPARTMENT Comment: OF PATHOLOGY The International Normalized AND GENOMIC Ratio (INR) is a therapeutic MEDICINE monitoring tool for patients who are stable on oral anticoagulant therapy. An INR of 2.0-3.0 is suggested for deep vein thrombosis/pulmonary embolism. Specimen Blood Performing Organization Address City/[facility]/Zipcode Phone Number [facility] DEPARTMENT OF [address] [place] [address] PATHOLOGY AND GENOMIC MEDICINE * D-dimer (03/05/2018 10:15 AM CDT) [facility] D-dimer 0.92 (H) 0.00 - 0.40 ug/mL [facility] DEPARTMENT Comment: FEU OF PATHOLOGY Units are ug/ml Fibrinogen AND GENOMIC Equivalent Unit. MEDICINE When combined with low clinical probability, D-dimer [...] and malignancies. Specimen Blood Performing Organization Address City/[facility] Cent[facility]ode Phone Number [facility] DEPARTMENT OF [address] [place] [address] PATHOLOGY AND GENOMIC MEDICINE * CBC with platelet and differential (03/05/2018 10:15 AM CDT) Pathologist [facility] WBC 6.28 4.50 - 11.00 k/uL [facility] DEPARTMENT OF PATHOLOGY AND GENOMIC MEDICINE RBC 3.96 (L) 4.20 - 5.50 m/uL [facility] DEPARTMENT OF PATHOLOGY AND GENOMIC MEDICINE HGB 11.5 (L) 12.0 - 16.0 g/dL [facility] DEPARTMENT OF PATHOLOGY AND GENOMIC MEDICINE HCT 35.4 (L) 37.0 - 47.0 % [facility] DEPARTMENT OF PATHOLOGY AND GENOMIC MEDICINE MCV 89.4 82.0 - 100.0 fL [facility] DEPARTMENT OF PATHOLOGY AND GENOMIC MEDICINE MCH 29.0 27.0 - 34.0 pg [facility] DEPARTMENT OF PATHOLOGY AND GENOMIC MEDICINE MCHC 32.5 31.0 - 37.0 g/dL [facility] DEPARTMENT OF PATHOLOGY AND GENOMIC MEDICINE RDW - SD 45.1 37.0 - 55.0 fL [facility] DEPARTMENT OF PATHOLOGY AND GENOMIC MEDICINE MPV 8.9 8.8 - 13.2 fL [facility] DEPARTMENT OF PATHOLOGY AND GENOMIC MEDICINE Platelet count 241 150 - 400 k/uL [facility] DEPARTMENT OF PATHOLOGY AND GENOMIC MEDICINE Nucleated RBC 0.00 /100 WBC [facility] DEPARTMENT OF PATHOLOGY AND GENOMIC MEDICINE Neutrophils 66.0 39.0 - 69.0 % [facility] DEPARTMENT OF PATHOLOGY AND GENOMIC MEDICINE Lymphocytes 24.8 (L) 25.0 - 45.0 % [facility] DEPARTMENT OF PATHOLOGY AND GENOMIC MEDICINE Monocytes 6.1 0.0 - 10.0 % [facility] DEPARTMENT OF PATHOLOGY AND GENOMIC MEDICINE Eosinophils 2.2 0.0 - 5.0 % [facility] DEPARTMENT OF PATHOLOGY AND GENOMIC MEDICINE Basophils 0.6 0.0 - 1.0 % [facility] DEPARTMENT OF PATHOLOGY AND GENOMIC MEDICINE Immature 0.3Comment: "Immature 0.0 - 1.0 % [facility] DEPARTMENT granulocytes granulocytes" (promyelocytes, OF PATHOLOGY myelocytes, metamyelocytes) AND GENOMIC MEDICINE Specimen Blood Performing Organization Address City/[facility]ercode Phone Number [facility] [place] [address] PATHOLOGY AND GENOMIC MEDICINE * Type and screen (03/05/2018 10:15 AM CDT) ABO grouping O [facility] DEPARTMENT OF PATHOLOGY AND GENOMIC MEDICINE Rh type POS [facility] DEPARTMENT OF PATHOLOGY AND GENOMIC MEDICINE Antibody screen NEG [facility] DEPARTMENT (gel) OF PATHOLOGY AND GENOMIC MEDICINE Specimen Blood Performing Organization Address [facility] [place] [address] PATHOLOGY AND GENOMIC MEDICINE * B natriuretic peptide (03/05/2018 10:15 AM CDT) BNP 11 0 - 100 pg/mL [facility] DEPARTMENT OF PATHOLOGY AND GENOMIC MEDICINE Specimen Blood Performing Organization Address City/[facility]/[place] [address] PATHOLOGY AND [facility] MEDICINE * Lipase level (03/05/2018 10:15 AM CDT) Lipase 20 13 - 60 U/L [facility] DEPARTMENT OF PATHOLOGY AND GENOMIC MEDICINE Specimen Plasma specimen Performing Organization Address City/[facility]/Zipcode Phone Number [place] [address] PATHOLOGY AND GENOMIC MEDICINE * Basic metabolic panel (03/05/2018 10:15 AM CDT) Sodium 141 135 - 148 mEq/L [facility] DEPARTMENT OF PATHOLOGY AND GENOMIC MEDICINE Potassium 4.5 3.5 - 5.0 mEq/L [facility] DEPARTMENT OF PATHOLOGY AND GENOMIC MEDICINE Chloride 103 98 - 112 mEq/L [facility] DEPARTMENT OF PATHOLOGY AND GENOMIC MEDICINE CO2 27 24 - 31 mEq/L [facility] DEPARTMENT OF PATHOLOGY AND GENOMIC MEDICINE Anion gap 11@ANIO 7 - 15 mEq/L [facility] DEPARTMENT OF PATHOLOGY AND GENOMIC MEDICINE BUN 10 6 - 20 mg/dL [facility] DEPARTMENT OF PATHOLOGY AND GENOMIC MEDICINE Creatinine 0.84 0.50 - 0.90 mg/dL [facility] DEPARTMENT OF PATHOLOGY AND GENOMIC MEDICINE Glucose 85 65 - 99 mg/dL [facility] DEPARTMENT OF PATHOLOGY AND GENOMIC MEDICINE Calcium 8.3 8.3 - 10.2 mg/dL [facility] DEPARTMENT OF PATHOLOGY AND GENOMIC MEDICINE Specimen Plasma specimen Performing Organization Address City/[facility] [place] Number [place] [address] PATHOLOGY AND GENOMIC MEDICINE * XR Chest 1 Vw (03/05/2018 10:02 AM CDT) Specimen Narrative Performed At EXAM: RADIANT XR CHEST 1 VW INDICATION: Chest painACS suspected COMPARISON: None. IMPRESSION: Surgical clips right upper quadrant. Minimal linear opacity lateral aspect left lower lung, discoid atelectasis versus scar/fibrosis. No consolidation, pleural effusion, pneumothorax. Heart size is normal. Minimal degenerative changes thoracic spine. [facility]-[id number] Procedure Note Interface, Radiology Results Incoming - 03/05/2018 10:06 AM CDT EXAM: XR CHEST 1 VW INDICATION: Chest pain ACS suspected COMPARISON: None. IMPRESSION: Surgical clips right upper quadrant. Minimal linear opacity lateral aspect left lower lung, discoid atelectasis versus scar/fibrosis. No consolidation, pleural effusion, pneumothorax. Heart size is normal. Minimal degenerative changes thoracic spine. [facility]-[id number] Performing Organization Address City/[facility] Centercode Phone Number [address] [address] * XR Abdomen 1 Vw (03/05/2018 10:02 AM CDT) Specimen Narrative Performed At Examination:XR ABDOMEN 1 VW RADIANT Clinical history:"Abd painunspecified" Comparison: None IMPRESSION:The bowel gas pattern is nonspecific. Densities compatible with anterior abdominal wall mesh are noted. There is no evidence of acute disease within the imaged portions of both lung bases. The imaged bones appear to be within normal limits. Surgical clips are seen in the right upper quadrant. [id number] Procedure Note Hm Interface, Radiology Results Incoming [...] are seen in the right upper quadrant. [id number] Performing Organization Address City/[facility]ercode Phone Number [facility] [address] [place] [address] * ECG 12 lead (03/05/2018 9:02 AM CDT) Ventricular 94 [facility] rate Atrial rate 94 [facility] TX interval 194 [facility] QRSD interval 128 [facility] QT interval 388 [facility] QTC interval 485 [facility] P axis 1 50 [facility] QRS axis 1 22 [facility] T wave axis 48 [facility] EKG impression Normal sinus [facility] rhythm-Nonspecific intraventricular block-Abnormal ECG-No previous ECGs available- Specimen Performing Organization Address [facility]coak Phone Number [employer] [facility] [address] [place] [address] after 11/08/2017 Insurance Type Payer Benefit Subscriber ID Effective Phone Address Plan / Dates Group HMO [employer] AMER[employer] xxxxxxxx [id number] STAR+PLUS resent [facility] Advance Directives Patient has advance care planning documents on file. For more information, ivan rousseau contact: Jai Zee [address] [place] [address]
--- OUTSIDE RECORDS SUMMARY | 2018-11-09 20:48 | XMS REPORT | Clinical Summary ---
Author Author [facility] Address Unknown Phone Unavailable Care Team Providers Care Breakfast Hostess Name Role Phone Sharpless PCP Unavailable Allergies Comments Active Allergy Reactions Severity Noted Date Codeine 10/25/2017 Tramadol 10/25/2017 Medications End Date Status Medication Sig Dispensed Refills Start Date 10/25/2018 dicyclomine (BENTYL) 20 Take 1 tablet 20 tablet 0 201 mg tablet (20 mg total) 8 by mouth 2 (two) times daily. Active Problems Problem Noted Date Abdominal pain, unspecified abdominal location 10/25/2017 Nausea vomiting and diarrhea 10/25/2017 Mild dehydration 10/25/2017 Social History Date Tobacco Use Types Packs/Day Years Used Never Assessed Sex Assigned at Date Recorded Not on file Industry Job Start Date Occupation Not on file Not on file Not on file Travel End Travel History Travel Start No recent travel history available. Last Filed Vital Signs Not on file Plan of Treatment Not on file Results Not on fileafter 11/08/2017 Insurance Payer Benefit Subscriber ID Type Phone Address Plan / Group MEDICAID - MEDICAID [place]GD MEDICAID xxxxxxxxx Medicaid CARE [employer] Non-Contra cted
[2018-11-09] MEDS ORDERED: HYDROMORPHONE 2MG/ML 2 MG/ML ML IV STA (21:59)
[2018-11-09] MEDS ORDERED: SODIUM CHLORIDE 0.9% 1000ML 1,000 ML IV STA (21:59)
[2018-11-09] MEDS ORDERED: ONDANSETRON HCL INJ 2MG/ML 2ML 2 MG/ML VIAL IV STA (21:59)
[2018-11-09 22:40] LABS: BASOPHILS % 0.2 % (0.0-1.0); EOSINOPHILS % 0.1 % (0.0-6.0); HEMOGLOBIN 13.1 g/dL (12.0-16.0); LYMPHOCYTES # (AUTO) 1.3 (1.0-3.2); LYMPHOCYTES % 13.9 % (18.0-39.1); MEAN CORPUSCULAR HEMOGLOBIN 29.9 pg (28-32); MEAN CORPUSCULAR HGB CONC 34.5 g/dL (31-35); MEAN CORPUSCULAR VOLUME 86.8 fL (81-99); MONOCYTES # (AUTO) 0.5 (0.2-0.8); MONOCYTES % 5.6 % (4.4-11.3); NEUTROPHILS # (AUTO) 7.3 (2.1-6.9); PLATELET COUNT 282 x10e3/uL (140-360); RED BLOOD COUNT 4.38 x10e6/uL (3.6-5.1); RED CELL DISTRIBUTION WIDTH 13.5 % (11.7-14.4)
[2018-11-09 22:45] LABS: BILIRUBIN,URINE SMALL (NEGATIVE); CLARITY,URINE CLOUDY (CLEAR); COLOR,URINE BROWN (YELLOW); KETONES,URINE NEGATIVE (NEGATIVE); LEUKOCYTE ESTERASE ,URINE TRACE (NEGATIVE); NITRITE,URINE NEGATIVE (NEGATIVE); PROTEIN,URINE DIPSTICK 2+ (NEGATIVE); URINE UROBILINOGEN 0.2 mg/dL (0.2 - 1)
[2018-11-09 22:53] LABS: INR 0.91; PROTHROMBIN TIME 12.7 seconds (11.9-14.5)
[2018-11-09 22:54] LABS: PARTIAL THROMBOPLASTIN TIME 29.2 seconds (23.8-35.5)
[2018-11-09 23:03] LABS: BACTERIA,URINE FEW /HPF; EPITHELIAL CELLS,URINE FEW /LPF; RBC,URINE >50 /HPF (0-5); WBC,URINE (MAN) 21-50 /HPF (0-5)
[2018-11-09] MEDS ORDERED: KETOROLAC TROMETHAMINE 30 MG/ML VIAL IV STA (23:14)
--- NOTE | 2018-11-09 23:15 | NUR ---
PT PRESSED CALL [facility], IV BOLUS INFUSED. PT STATES DILAUDID DID NOT HELP HER PAIN AT ALL. PT NOW APPEARS CALM, NO LONGER MOANING LOUDLY. WHEN ASKED TO GIVE A NUMBER FOR PAIN, PT STATES STILL 10. POINTED OUT TO PT THAT SHE APPEARS MORE COMFORTABLE, IS NO LONGER MOANING LOUDLY AND APPEARS CALM, PT SMILES AND STATES SHE SWEARS HER PAIN ISN'T ANY BETTER AND IT IS A 10. DR SIDHU INFORMED. RECEIVED ORDERS FOR TORADOL
[2018-11-09 23:29] LABS: ALANINE AMINOTRANSFERASE 111 IU/L (0-55); ALBUMIN 3.5 g/dL (3.5-5.0); ALBUMIN/GLOBULIN RATIO 1.1 (0.8-2.0); ALKALINE PHOSPHATASE 104 IU/L (40-150); AMYLASE 57 U/L (25-125); ANION GAP 14.2 mmol/L (8-16); BLOOD UREA NITROGEN 15 mg/dL (7-26); BUN/CREATININE RATIO 15 (6-25); CALCIUM 9.1 mg/dL (8.4-10.2); CARBON DIOXIDE 20 mmol/L (22-29); CHLORIDE 101 mmol/L (98-107); CREATININE, SERUM 0.97 mg/dL (0.57-1.11); EST GLOMERULAR FILTRATION RATE > 60 ML/MIN (60-); GLUCOSE 124 mg/dL (74-118); LIPASE 26 U/L (8-78); MAGNESIUM 2.1 MG/DL (1.3-2.1); POTASSIUM 4.2 mmol/L (3.5-5.1); SODIUM 131 mmol/L (136-145)
--- OUTSIDE RECORDS SUMMARY | 2018-11-09 23:41 | XMS REPORT | Clinical Summary ---
Author Author [employer] Address Unknown Phone Unavailable Care Team Providers Care Concaver Name Role Phone Asked, No Pcp PCP [...] 1.4 0.5 - 2.2 mmol/L [facility] DEPARTMENT OF PATHOLOGY AND GENOMIC MEDICINE Specimen Blood Performing Organization Address City/State/Zipcode Phone Number [facility] DEPARTMENT OF [address] [place] [address] PATHOLOGY AND GENOMIC MEDICINE * CT Chest [...] No fluid collections. IMPRESSION: No acute abnormality. [id number] Procedure Note Hm Interface, Radiology Results Incoming [...] No fluid collections. IMPRESSION: No acute abnormality. [id number] Performing Organization Address City/State/[facility] [place] [address] * Estimated GFR (03/05/2018 10:15 AM CDT) [facility] Estimated GFR 87 mL/min/1.73 m2 [facility] DEPARTMENT Comment: OF PATHOLOGY CatergoryUnitsInte AND GENOMIC rpretation MEDICINE G1 >=90 Normal or high G2 60-89Mildly decreased K2t80-13 Mildly to moderately decreased A8t39-39 Moderately to severely decreased G4 15-29Severely decreased G5 <15Kidney failure The eGFR was calculated using the Chronic Kidney Disease Epidemiology Collaboration (CKD-EPI) equation. Interpretation is based on recommendations of the National Kidney Foundation-Kidney Disease Outcomes Quality Initiative (NKF-KDOQI) published in 2014. Specimen Plasma specimen Performing Organization Address [facility] Phone Number [facility] [place] [address] PATHOLOGY AND [facility] * Troponin (03/05/2018 10:15 AM CDT) [facility] Troponin <0.30 0.00 - 0.30 ng/mL [facility] DEPARTMENT Comment: OF PATHOLOGY 0.30 - 1.49 AND GENOMIC ng/mlMay MEDICINE indicate increased risk of acute coronary syndrome. >=1.5 ng/ml Consistent with acute myocardial infarction. The diagnostic value of a single normal or non-diagnostic result is questionable.Serial samples at 2-6 hour intervals are required to rule out acute myocardial injury. Specimen Plasma specimen Performing Organization Address [facility] Phone Number [facility] DEPARTMENT OF [address] [place] [address] PATHOLOGY AND [facility] * Partial thromboplastin time, activated (03/05/2018 10:15 AM CDT) [facility] PTT 29.9 23.0 - 36.0 sec [facility] DEPARTMENT Comment: OF PATHOLOGY PTT therapeutic range for AND GENOMIC unfractionated heparin is MEDICINE 61.0-112.0 seconds which corresponds to Anti-Xa 0.3-0.7 U/ml. Specimen Blood Performing Organization Address [facility]/Zipcode Phone Number [facility] DEPARTMENT OF [address] [place] [address] PATHOLOGY AND [facility] * Prothrombin time with INR (03/05/2018 10:15 AM CDT) [facility] Prothrombin 14.1 12.0 - 15.0 sec [facility] DEPARTMENT time OF PATHOLOGY AND GENOMIC MEDICINE INR 1.1 [facility] DEPARTMENT Comment: OF PATHOLOGY The International Normalized AND GENOMIC Ratio (INR) is a therapeutic MEDICINE monitoring tool for patients who are stable on oral anticoagulant therapy. An INR of 2.0-3.0 is suggested for deep vein thrombosis/pulmonary embolism. Specimen Blood Performing Organization Address City/[facility]/Zipcode Phone Number [facility] DEPARTMENT OF [address] [place] [address] PATHOLOGY AND GENOMIC MEDICINE * D-dimer (03/05/2018 10:15 AM CDT) [facility] D-dimer 0.92 (H) 0.00 - 0.40 ug/mL [facility] DEPARTMENT Comment: FEU OF PATHOLOGY Units are [...] and malignancies. Specimen Blood Performing Organization Address City/[facility] Phone Number [facility] DEPARTMENT OF [address] [place] [address] PATHOLOGY AND GENOMIC MEDICINE * CBC with platelet and differential (03/05/2018 10:15 AM CDT) Pathologist [facility] WBC 6.28 4.50 - 11.00 k/uL [facility] DEPARTMENT OF PATHOLOGY AND GENOMIC MEDICINE RBC 3.96 (L) 4.20 - 5.50 m/uL [facility] DEPARTMENT OF PATHOLOGY AND GENOMIC MEDICINE HGB 11.5 (L) 12.0 - 16.0 g/dL [facility] DEPARTMENT OF PATHOLOGY AND GENOMIC MEDICINE HCT 35.4 (L) 37.0 - 47.0 % [facility] DEPARTMENT OF PATHOLOGY AND GENOMIC MEDICINE MCV 89.4 82.0 - 100.0 fL [facility] DEPARTMENT OF PATHOLOGY AND GENOMIC MEDICINE MCH 29.0 27.0 - 34.0 pg [facility] DEPARTMENT OF PATHOLOGY AND GENOMIC MEDICINE MCHC 32.5 31.0 - 37.0 g/dL [facility] DEPARTMENT OF PATHOLOGY AND GENOMIC MEDICINE RDW - SD 45.1 37.0 - 55.0 fL [facility] DEPARTMENT OF PATHOLOGY AND GENOMIC MEDICINE MPV 8.9 8.8 - 13.2 fL [facility] DEPARTMENT OF PATHOLOGY AND GENOMIC MEDICINE Platelet count 241 150 - 400 k/uL [facility] DEPARTMENT OF PATHOLOGY AND GENOMIC MEDICINE Nucleated RBC 0.00 /100 WBC [facility] DEPARTMENT OF PATHOLOGY AND GENOMIC MEDICINE Neutrophils 66.0 39.0 - 69.0 % [facility] DEPARTMENT OF PATHOLOGY AND GENOMIC MEDICINE Lymphocytes 24.8 (L) 25.0 - 45.0 % [facility] DEPARTMENT OF PATHOLOGY AND GENOMIC MEDICINE Monocytes 6.1 0.0 - 10.0 % [facility] DEPARTMENT OF PATHOLOGY AND GENOMIC MEDICINE Eosinophils 2.2 0.0 - 5.0 % [facility] DEPARTMENT OF PATHOLOGY AND GENOMIC MEDICINE Basophils 0.6 0.0 - 1.0 % [facility] DEPARTMENT OF PATHOLOGY AND GENOMIC MEDICINE Immature 0.3Comment: "Immature 0.0 - 1.0 % [facility] DEPARTMENT granulocytes granulocytes" (promyelocytes, OF PATHOLOGY myelocytes, metamyelocytes) AND GENOMIC MEDICINE Specimen Blood Performing Organization Address City/[facility] Phone Number [facility] [place] [address] PATHOLOGY AND GENOMIC MEDICINE * Type and screen (03/05/2018 10:15 AM CDT) ABO grouping O [facility] DEPARTMENT OF PATHOLOGY AND GENOMIC MEDICINE Rh type POS [facility] DEPARTMENT OF PATHOLOGY AND GENOMIC MEDICINE Antibody screen NEG [facility] DEPARTMENT (gel) OF PATHOLOGY AND GENOMIC MEDICINE Specimen Blood Performing Organization Address [facility] [place] [address] PATHOLOGY AND GENOMIC MEDICINE * B natriuretic peptide (03/05/2018 10:15 AM CDT) BNP 11 0 - 100 pg/mL [facility] DEPARTMENT OF PATHOLOGY AND GENOMIC MEDICINE Specimen Blood Performing Organization Address City/[facility]/[place] [address] PATHOLOGY AND [facility] MEDICINE * Lipase level (03/05/2018 10:15 AM CDT) Lipase 20 13 - 60 U/L [facility] DEPARTMENT OF PATHOLOGY AND GENOMIC MEDICINE Specimen Plasma specimen Performing Organization Address City/[facility]/Zipcode Phone Number [place] [address] PATHOLOGY AND GENOMIC MEDICINE * Basic metabolic panel (03/05/2018 10:15 AM CDT) Sodium 141 135 - 148 mEq/L [facility] DEPARTMENT OF PATHOLOGY AND GENOMIC MEDICINE Potassium 4.5 3.5 - 5.0 mEq/L [facility] DEPARTMENT OF PATHOLOGY AND GENOMIC MEDICINE Chloride 103 98 - 112 mEq/L [facility] DEPARTMENT OF PATHOLOGY AND GENOMIC MEDICINE CO2 27 24 - 31 mEq/L [facility] DEPARTMENT OF PATHOLOGY AND GENOMIC MEDICINE Anion gap 11@ANIO 7 - 15 mEq/L [facility] DEPARTMENT OF PATHOLOGY AND GENOMIC MEDICINE BUN 10 6 - 20 mg/dL [facility] DEPARTMENT OF PATHOLOGY AND GENOMIC MEDICINE Creatinine 0.84 0.50 - 0.90 mg/dL [facility] DEPARTMENT OF PATHOLOGY AND GENOMIC MEDICINE Glucose 85 65 - 99 mg/dL [facility] DEPARTMENT OF PATHOLOGY AND GENOMIC MEDICINE Calcium 8.3 8.3 - 10.2 mg/dL [facility] DEPARTMENT OF PATHOLOGY AND GENOMIC MEDICINE Specimen Plasma specimen Performing Organization Address City/[facility] [place] [address] PATHOLOGY AND GENOMIC MEDICINE * XR Chest 1 Vw (03/05/2018 10:02 AM CDT) Specimen Narrative Performed At EXAM: RADIANT XR CHEST 1 VW INDICATION: Chest painACS suspected COMPARISON: None. IMPRESSION: Surgical clips right upper quadrant. Minimal linear opacity lateral aspect left lower lung, discoid atelectasis versus scar/fibrosis. No consolidation, pleural effusion, pneumothorax. Heart size is normal. Minimal degenerative changes thoracic spine. [id number] Procedure Note Interface, Radiology Results Incoming - 03/05/2018 10:06 AM CDT EXAM: XR CHEST 1 VW INDICATION: Chest pain ACS suspected COMPARISON: None. IMPRESSION: Surgical clips right upper quadrant. Minimal linear opacity lateral aspect left lower lung, discoid atelectasis versus scar/fibrosis. No consolidation, pleural effusion, pneumothorax. Heart size is normal. Minimal degenerative changes thoracic spine. [id number] Performing Organization Address City/[facility]code Phone Number [address] [address] * XR Abdomen 1 Vw (03/05/2018 10:02 [...] are seen in the right upper quadrant. [id number] Procedure Note Hm Interface, Radiology Results Incoming [...] are seen in the right upper quadrant. [id number] Performing Organization Address City/[facility] Phone Number [facility] [address] [place] [address] * ECG 12 lead (03/05/2018 9:02 AM CDT) Ventricular 94 [facility] rate Atrial rate 94 [facility] IA interval 194 [facility] QRSD interval 128 [facility] QT interval 388 [facility] QTC interval 485 [facility] P axis 1 50 [facility] QRS axis 1 22 [facility] T wave axis 48 [facility] EKG impression Normal sinus [facility] rhythm-Nonspecific intraventricular block-Abnormal ECG-No previous ECGs available- Specimen Performing Organization Address [facility] Hospitalconc Phone Number [employer] MUSE [address] [place] [address] after 11/08/2017 Insurance Type Payer Benefit Subscriber ID Effective Phone Address Plan / Dates Group HMO [employer] xxxxxxxx [id number] [employer] resent [facility] Advance Directives Patient has advance care planning documents on file. For more information, ivan rousseau contact: Jai Zee [address] [place] [address]
--- OUTSIDE RECORDS SUMMARY | 2018-11-09 23:41 | XMS REPORT | Clinical Summary ---
Author Author [facility] Address Unknown Phone Unavailable Care Team Providers Care Superintendent Quarry Name Role Phone Sharpless PCP Unavailable Allergies [...]
[2018-11-10] VITALS (10 sets, daily range): BP systolic 102–121; BP diastolic 55–85
--- OUTSIDE RECORDS SUMMARY | 2018-11-10 00:04 | XMS REPORT | Continuity of Care Document ---
Author Author [facility] Interface Address Unknown Phone Unavailable Problems Problem Status Onset Date Classification Date Reported Comments Source Generalized abdominal pain 10/27/2018 10/30/2018 [facility] ABD PAIN/NAUSEA Active 10/27/2018 [facility] ABD PAIN/NAUSEA Active 10/27/2018 [facility] ABDOMINAL PAIN Active 10/14/2018 [facility] [place] Nephrolithiasis 09/29/2018 10/02/2018 [facility] BACK PAIN OR INJURY Active 09/29/2018 [facility] CHEST PAIN Active 09/09/2018 [facility] Acute chest wall pain 08/21/2018 08/23/2018 [facility] Muscle spasm 08/21/2018 08/23/2018 [facility] BREAST PAIN Active 08/21/2018 [facility] Acute right-sided back pain 08/06/2018 08/08/2018 [facility] BACK PAIN Active 08/06/2018 [facility] ABD PAIN Active 06/06/2018 [facility] [place] CP Active 05/11/2018 [facility] Right lower quadrant pain 05/01/2018 09/08/2018 [facility] Urinary tract infection, site not specified 04/20/2018 11/03/2018 [facility] Acute UTI 04/16/2018 11/03/2018 [facility] Abdominal pain, acute 04/16/2018 11/03/2018 [facility] Generalized obesity 04/16/2018 11/03/2018 [facility] Unspecified abdominal pain 04/10/2018 10/23/2018 [facility] Other chronic postprocedural pain 03/27/2018 10/08/2018 [facility] Drug-seeking behavior 03/21/2018 10/08/2018 [facility] [place] Post-op pain 03/21/2018 10/08/2018 [facility] Chronic abdominal pain 03/21/2018 10/08/2018 [facility] Abdominal pain in female. 03/19/2018 10/06/2018 [facility] Abdominal pain 03/18/2018 10/05/2018 [facility] Other acute postprocedural pain 03/06/2018 09/18/2018 [facility] Post-operative pain 03/01/2018 09/18/2018 [facility] ABDOMINAL PAIN GENERAL Active 03/01/2018 [facility] Acute constipation 02/22/2018 09/11/2018 [facility] CONSTIPATION Active 02/22/2018 [facility] Nausea & vomiting 02/19/2018 09/08/2018 [facility], [place] Right lower quadrant abdominal pain 02/19/2018 09/08/2018 [facility] Kidney stones 02/14/2018 09/03/2018 [facility] Acute diarrhea 02/14/2018 09/03/2018 [facility] UPPER ABD PAIN Active 02/14/2018 [facility] Abdominal pain, acute, right lower quadrant 12/02/2017 12/05/2017 [facility] STOMACH PAIN/RIGHT SIDE Active 12/02/2017 [place] Ovarian cyst, right 10/26/2017 10/29/2017 [facility] DEPRESSIVE DISORDER, MAJOR, RECURRENT EPISODE, W/ PSYCHOTIC FEATURES Active 10/21/2017 Diagnosis 09/27/2018 [facility] Vomiting, unspecified 09/02/2017 12/01/2017 [facility] PTSD Active 08/28/2017 Diagnosis 09/27/2018 [facility] PANIC DISORDER Active 08/28/2017 Diagnosis 09/27/2018 [facility] INSOMNIA DISORDER, PERSISTENT Active 08/28/2017 Diagnosis 09/27/2018 [facility] Abdominal pain in male 08/25/2017 12/01/2017 [facility] Acute vomiting 08/25/2017 12/01/2017 [facility] Viral intestinal infection, unspecified 07/16/2017 10/16/2017 [facility] Viral gastroenteritis 07/10/2017 10/16/2017 [facility] VOMITING Active 07/10/2017 [facility] Other chest pain 06/17/2017 09/16/2017 [facility] Atypical chest pain 06/10/2017 09/16/2017 [facility] DIZZINESS / CHEST PAIN Active 06/10/2017 [facility] Discharge Diagnosis: Urinary tract infection, site not specified 04/21/2017 04/24/2017 [facility] Discharge Diagnosis: Post-op pain 04/11/2017 04/14/2017 [facility] Discharge Diagnosis: Nausea and vomiting in adult 04/03/2017 04/06/2017 [facility] Discharge Diagnosis: Hernia, umbilical 04/03/2017 04/06/2017 [facility] Discharge Diagnosis: Acute low back pain 03/24/2017 03/27/2017 [facility] Discharge Diagnosis: Abdominal pain, acute 03/24/2017 03/27/2017 [facility] FLANK PAIN Active 03/24/2017 [facility] Discharge Diagnosis: Right flank pain 03/11/2017 03/14/2017 [facility] Discharge Diagnosis: Chronic urinary tract infection 03/11/2017 03/14/2017 [facility] Discharge Diagnosis: Bilateral kidney stones 03/11/2017 03/14/2017 [facility] Discharge Diagnosis: Fecal impaction of rectum 01/13/2017 01/16/2017 [facility] Discharge Diagnosis: Kidney stones 01/13/2017 01/16/2017 [facility] Discharge Diagnosis: Abdominal pain in female 01/13/2017 01/16/2017 [facility] Discharge Diagnosis: Constipation 01/13/2017 01/16/2017 [facility] Discharge Diagnosis: Kidney stone on right side 11/20/2016 11/23/2016 [facility] Discharge Diagnosis: Generalized abdominal pain 11/08/2016 11/11/2016 [facility] Discharge Diagnosis: Acute bilateral back pain 10/22/2016 10/25/2016 [facility] Discharge Diagnosis: Back pain, chronic 10/22/2016 10/25/2016 [facility] Discharge Diagnosis: Flank pain 10/14/2016 10/17/2016 [facility] Discharge Diagnosis: UTI 10/14/2016 10/17/2016 [facility] Discharge Diagnosis: Acute UTI 06/12/2016 06/15/2016 [facility] Discharge Diagnosis: Acute right flank pain 06/12/2016 06/15/2016 [facility] BACK PAIN/VOMITING/SYNCOPE EPISODE Active 06/12/2016 [facility] Discharge Diagnosis: Flank pain 06/10/2016 06/13/2016 [facility] Discharge Diagnosis: Bilateral kidney stones 06/10/2016 06/13/2016 [facility] Discharge Diagnosis: Acute flank pain 02/11/2016 02/16/2016 [facility] Discharge Diagnosis: Abdominal pain 02/01/2016 02/04/2016 [facility] LOWER SIDE PAIN Active 02/01/2016 [facility] CHEST PAIN/ ABD PAIN Active 01/25/2016 [facility] URETEROLITHIASIS, UTI Active 01/25/2016 [facility] UROLITHIASIS, UTI, SEPSIS Active 11/04/2015 [facility] SOB Active 11/04/2015 [facility] Discharge Diagnosis: Acute low back pain 08/10/2015 08/13/2015 [facility] Discharge Diagnosis: Acute gastroenteritis 08/10/2015 08/13/2015 [facility] Discharge Diagnosis: Lower abdominal pain, unspecified 08/08/2015 08/11/2015 [facility] Discharge Diagnosis: Low back pain 08/08/2015 08/11/2015 [facility] Discharge Diagnosis: Pelvic and perineal pain 05/11/2015 05/14/2015 [facility] Discharge Diagnosis: Other ovarian cysts 05/11/2015 05/14/2015 [facility] SIDE PAIN Active 05/11/2015 [facility] Discharge Diagnosis: Unspecified ovarian cysts 05/09/2015 05/12/2015 [facility] Discharge Diagnosis: Urinary tract infection, site not specified 05/02/2015 05/05/2015 [facility] Discharge Diagnosis: Unspecified abdominal pain 03/29/2015 04/01/2015 [facility] Discharge Diagnosis: Hematuria, unspecified 03/29/2015 04/01/2015 [facility] Discharge Diagnosis: Benign hematuria 01/28/2015 01/31/2015 [facility] Discharge Diagnosis: Female pelvic pain 01/28/2015 01/31/2015 [facility] FLANK PAIN Active 01/28/2015 [facility] Discharge Diagnosis: Nausea and vomiting in adult 01/18/2015 01/21/2015 [facility] Discharge Diagnosis: Dysuria 01/18/2015 01/21/2015 [facility] Discharge Diagnosis: UTI , bacterial 01/18/2015 01/21/2015 [facility] Discharge Diagnosis: Abdominal pain 01/13/2015 01/16/2015 [facility] Discharge Diagnosis: Urinary tract infection 01/13/2015 01/16/2015 [facility] Discharge Diagnosis: Flank pain 11/21/2014 11/24/2014 [facility] Discharge Diagnosis: Back pain 11/21/2014 11/24/2014 [facility] Discharge Diagnosis: Nephrolithiasis 11/21/2014 11/24/2014 [facility] Discharge Diagnosis: Vomiting and diarrhea 09/09/2014 09/11/2014 [facility] Discharge Diagnosis: UTI 09/09/2014 09/11/2014 [facility] Discharge Diagnosis: Pyelonephritis 09/09/2014 09/11/2014 [facility] Discharge Diagnosis: Low back pain radiating to right leg 09/09/2014 09/11/2014 [facility] LOWER ABD PAIN Active 07/15/2012 [facility] BACKPAIN Active 12/02/2011 [facility] ABD AND BACK PAIN Active 08/13/2011 [facility] STOMACH PAIN Active 06/19/2011 [facility] Kidney stone Active Problem 11/03/2018 [facility] [place] Ovarian cyst Resolved Problem 11/03/2018 [facility] [place] Vaginal delivery Active Problem 11/03/2018 [facility] [place], [facility] Nausea 10/05/2018 [facility] Personal history of nicotine dependence 11/03/2018 [facility] Vaginal delivery Active Problem 08/14/2012 [facility] Epigastric pain 12/01/2017 [facility] Left upper quadrant pain 11/03/2018 [facility] Left lower quadrant pain 10/08/2018 [facility] Obesity, unspecified 11/03/2018 [facility] Other specified postprocedural states 10/23/2018 [facility] Acquired absence of other specified parts of digestive tract 11/03/2018 [facility] 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 10/23/2018 [facility] Personal history of urinary calculi 11/03/2018 [facility] Diarrhea, unspecified 10/23/2018 [facility] Unspecified ovarian cyst, unspecified side 11/03/2018 [facility] Body mass index 37.0-37.9, adult 11/03/2018 [facility] Acquired absence of both cervix and uterus 11/03/2018 [facility] Nausea with vomiting, unspecified 10/23/2018 [facility] Calculus of kidney 10/06/2018 [facility] Personal history of other diseases of the digestive system 10/06/2018 [facility] Malingerer [conscious simulation] 10/08/2018 [facility] Post-traumatic stress disorder, unspecified 10/08/2018 [facility] Constipation, unspecified 09/11/2018 [facility] Allergy status to narcotic agent status 09/11/2018 [facility] Anxiety disorder, unspecified 10/23/2018 [facility] Pancreatitis, acute Active Problem 10/01/2018 [facility] URINARY CALCULUS, UNSPECIFIED Active [facility] URINARY TRACT INFECTION, SITE NOT SPECIF Active [facility] Medications Medication Details Route Status Patient Instructions Ordering Provider Order Date Source Ranitidine 75 MG Oral Tablet [Zantac] 75 mg=1 tab, PO, BID, # 14 tab, 0 Refill(s) Active 10/27/2018 [facility] Cephalexin 500 MG Oral Capsule [Keflex] 500 mg=1 cap, PO, QID, X 5 day, # 20 cap, 0 Refill(s) Active 10/27/2018 [facility] Zofran 4 mg, 2 mL, Route: IVP, Drug form: INJ, ONCE, Dosing Weight 100, kg, Priority: STAT, Start date: 10/27/18 10:33:00 CDT, Stop date: 10/27/18 10:33:00 CDTNotes: (Same as: Zofran) MEDICATION WASTE Product Size: 4 mg Product Wasted: ___ mg Inactive 10/27/2018 [facility] Morphine 4 mg, 1 mL, Route: IVP, Drug form: SOLN, ONCE, Dosing Weight 100, kg, Priority: STAT, Start date: 10/27/18 10:33:00 CDT, Stop date: 10/27/18 10:33:00 CDTNotes: (Same as:MORPhine Sulfate) Inactive 10/27/2018 [facility] Xylocaine Viscous 2% mucous membrane solution 15 mL, Route: PO, ONCE, Drug form: SOLN, Start date: 10/27/18 10:08:00 CDT, Stop date: 10/27/18 10:08:00 CDTNotes: (Same as: Xylocaine) Inactive 10/27/2018 [facility] Al hydroxide/Mg hydroxide/simethicone 30 mL, Route: PO, Drug Form: SUSP, ONCE, Start date: 10/27/18 10:08:00 CDT, Stop date: 10/27/18 10:08:00 CDTNotes: (aluminum hydroxide-magnesium hyd-simethicone [phone]/5ml 30 ml ud MIKE) Inactive 10/27/2018 [facility] Famotidine 20 mg, 2 mL, Route: IVP, Drug form: INJ, ONCE, Dosing Weight 100, kg, Priority: STAT, Start date: 10/27/18 9:52:00 CDT, Stop date: 10/27/18 9:52:00 CDTNotes: (Same as: Pepcid) Can be dilute in 5-10cc NS IVP: Slow IV push over at least 2 minutes. Inactive 10/27/2018 [facility] Sodium Chloride 0.9% (Bolus) IV 1,000 mL, 1000 ml/hr, Infuse Over: 1 hr, Route: IV, 1,000, Drug form: INJ, ONCE, Priority: STAT, Dosing Weight 100 kg, Start date: 10/27/18 9:52:00 CDT, Stop date: 10/27/18 9:52:00 CDT Inactive 10/27/2018 [facility] GI cocktail (aluminum hydroxide/magnesium hydroxide/lidocaine/simethicone) 30 mL, Route: PO, Dosing Weight 100, kg, ONCE, STAT, Start date: 10/27/18 9:52:00 CDT, Stop date: 10/27/18 9:52:00 CDT Inactive 10/27/2018 [facility] Motrin 600 mg oral tablet 600 mg=1 tab, PO, Q6H, take with food, X 7 day, # 28 tab, 0 Refill(s) Active 10/14/2018 [facility] Phenergan 25 mg oral tablet 25 mg=1 tab, PO, Q6H, PRN Nausea, # 15 tab, 0 Refill(s) Active 10/14/2018 [facility] Ketorolac 30 mg, 1 mL, Route: IVP, Drug form: INJ, ONCE, Dosing Weight 100, kg, Priority: STAT, Start date: 10/14/18 8:23:00 CDT, Stop date: 10/14/18 8:23:00 CDTNotes: (Same as:Toradol) IV bolus must be given >15 seconds. Give IM administration slowly and deeply into the muscle. Not for use > 4 days MEDICATION WASTE Product Size: 30 mg Product Wasted: ___ mg Inactive 10/14/2018 [facility] Ondansetron 4 mg, 2 mL, Route: IVP, Drug form: INJ, ONCE, Dosing Weight 100, kg, Priority: STAT, Start date: 10/14/18 8:23:00 CDT, Stop date: 10/14/18 8:23:00 CDTNotes: (Same as: Zofran) MEDICATION WASTE Product Size: 4 mg Product Wasted: ___ mg Inactive 10/14/2018 [facility] Sodium Chloride 0.9% (Bolus) IV 1,000 mL, 1000 ml/hr, Infuse Over: 1 hr, Route: IV, 1,000, Drug form: INJ, ONCE, Priority: STAT, Dosing Weight 100 kg, Start date: 10/14/18 8:23:00 CDT, Stop date: 10/14/18 8:23:00 CDT Inactive 10/14/2018 [facility] Tamsulosin hydrochloride 0.4 MG Oral Capsule [Flomax] 0.4 mg=1 cap, PO, Daily, # 7 cap, 0 Refill(s) Active 09/29/2018 [facility] Ketorolac 15 mg, Route: IVP, Drug form: INJ, ONCE, Dosing Weight 100, kg, Priority: STAT, Start date: 09/29/18 10:22:00 CDT, Stop date: 09/29/18 10:22:00 CDT Inactive 09/29/2018 [facility] Promethazine 12.5 mg, Route: IM, ONCE, Dosing Weight 100, kg, Priority: STAT, Start date: 09/29/18 10:22:00 CDT, Stop date: 09/29/18 10:22:00 CDT Inactive 09/29/2018 [facility] Morphine 4 mg, Route: IVP, ONCE, Dosing Weight 100, kg, Priority: STAT, Start date: 09/29/18 8:36:00 CDT, Stop date: 09/29/18 8:36:00 CDT Inactive 09/29/2018 [facility] Sodium Chloride 0.9% (Bolus) IV 1,000 mL, Infuse Over: 1 hr, Route: IV, ONCE, Priority: STAT, Dosing Weight 100 kg, Start date: 09/29/18 8:36:00 CDT, Stop date: 09/29/18 8:36:00 CDT Inactive 09/29/2018 [facility] Ondansetron 4 mg, Route: IVP, Drug form: INJ, ONCE, Dosing Weight 100, kg, Priority: STAT, Start date: 09/29/18 8:36:00 CDT, Stop date: 09/29/18 8:36:00 CDT Inactive 09/29/2018 [facility] Metoclopramide 10 mg, 2 mL, Route: IVP, Drug form: INJ, ONCE, Dosing Weight 100, kg, Priority: STAT, Start date: 09/09/18 10:00:00 CDT, Stop date: 09/09/18 10:00:00 CDTNotes: (Same as: Reglan) Inactive 09/09/2018 [facility] Sodium Chloride 0.9% (Bolus) IV 1,000 mL, 1000 ml/hr, Infuse Over: 1 hr, Route: IV, 1,000, Drug form: INJ, ONCE, Priority: STAT, Dosing Weight 100 kg, Start date: 09/09/18 10:00:00 CDT, Stop date: 09/09/18 10:00:00 CDT Inactive 09/09/2018 [facility] Acetaminophen 500 mg, Route: PO, ONCE, Dosing Weight 100, kg, Priority: STAT, Start date: 08/26/18 10:27:00 CDT, Stop date: 08/26/18 10:27:00 CDT, .. Inactive 08/26/2018 [facility] methocarbamol 750 mg oral tablet 1,500 mg=2 tab, PO, TID, X 3 day, # 18 tab, 0 Refill(s) Active 08/21/2018 [facility] Ketorolac 30 mg, 1 mL, Route: IVP, Drug form: INJ, ONCE, Dosing Weight 100, kg, Priority: STAT, Start date: 08/21/18 10:16:00 CDT, Stop date: 08/21/18 10:16:00 CDTNotes: (Same as:Toradol) IV bolus must be given >15 seconds. Give IM administration slowly and deeply into the muscle. Not for use > 4 days MEDICATION WASTE Product Size: 30 mg Product Wasted: ___ mg Inactive 08/21/2018 [facility] cyclobenzaprine 10 mg, 1 tab, Route: PO, Drug form: TAB, ONCE, Dosing Weight 100, kg, Priority: STAT, Start date: 08/21/18 10:16:00 CDT, Stop date: 08/21/18 10:16:00 CDTNotes: (Same As: Flexeril) Inactive 08/21/2018 [facility] Pyridium 100 mg, 1 tab, Route: PO, Drug form: TAB, ONCE, Dosing Weight 100, kg, Priority: STAT, Start date: 08/06/18 9:15:00 ACQUISITIONS LOGISTICS ANALYST, Stop date: 08/06/18 9:15:00 CSTNotes: Give with meals. (Same as: Pyridium) Inactive 08/06/2018 [facility] Tamsulosin hydrochloride 0.4 MG Oral Capsule [Flomax] 0.4 mg=1 cap, PO, Daily, # 7 cap, 0 Refill(s) Active 08/04/2018 [facility] Ondansetron 4 MG Oral Tablet [Zofran] 4 mg=1 tab, PO, Q6H, PRN Nausea/Vomiting, # 12 tab, 0 Refill(s) Active 08/04/2018 [facility] Cephalexin 500 MG Oral Capsule [Keflex] 500 mg=1 cap, PO, Q8H, X 10 day, # 30 cap, 0 Refill(s) Active 08/04/2018 [facility] Morphine 4 mg, Route: IVP, ONCE, Dosing Weight 100, kg, Priority: STAT, Start date: 08/04/18 9:33:00 ACQUISITIONS LOGISTICS ANALYST, Stop date: 08/04/18 9:33:00 ACQUISITIONS LOGISTICS ANALYST Inactive 08/04/2018 [facility] Ondansetron 4 mg, Route: IVP, Drug form: INJ, ONCE, Dosing Weight 100, kg, Priority: STAT, Start date: 08/04/18 8:54:00 ACQUISITIONS LOGISTICS ANALYST, Stop date: 08/04/18 8:54:00 ACQUISITIONS LOGISTICS ANALYST Inactive 08/04/2018 [facility] Ceftriaxone 1 gm, Route: IVPB, ONCE, Dosing Weight 100, kg, Priority: STAT, Start date: 08/04/18 8:54:00 ACQUISITIONS LOGISTICS ANALYST, Stop date: 08/04/18 8:54:00 ACQUISITIONS LOGISTICS ANALYST, ABX Indication: Genital Tract Infection Inactive 08/04/2018 [facility] Morphine 4 mg, Route: IVP, ONCE, Dosing Weight 100, kg, Priority: STAT, Start date: 08/04/18 8:54:00 ACQUISITIONS LOGISTICS ANALYST, Stop date: 08/04/18 8:54:00 ACQUISITIONS LOGISTICS ANALYST Inactive 08/04/2018 [facility] Ketorolac 15 mg, Route: IVP, Drug form: INJ, ONCE, Dosing Weight 100, kg, Priority: STAT, Start date: 08/04/18 8:03:00 ACQUISITIONS LOGISTICS ANALYST, Stop date: 08/04/18 8:03:00 ACQUISITIONS LOGISTICS ANALYST Inactive 08/04/2018 [facility] Sodium Chloride 0.9% (Bolus) IV 1,000 mL, Infuse Over: 1 hr, Route: IV, ONCE, Priority: STAT, Dosing Weight 100 kg, Start date: 08/04/18 8:03:00 ACQUISITIONS LOGISTICS ANALYST, Stop date: 08/04/18 8:03:00 ACQUISITIONS LOGISTICS ANALYST Inactive 08/04/2018 [facility] Ondansetron 4 mg, Route: IVP, Drug form: INJ, ONCE, Dosing Weight 100, kg, Priority: STAT, Start date: 08/04/18 8:03:00 ACQUISITIONS LOGISTICS ANALYST, Stop date: 08/04/18 8:03:00 ACQUISITIONS LOGISTICS ANALYST Inactive 08/04/2018 [facility] LEXAPRO 10 MG ORAL TABLET Take one tablet By Mouth daily with the 20mg tablet Active Take one tablet By Mouth daily with the 20mg tablet 07/28/2018 [facility] DIAZEPAM TAKE 1 TABLET BY MOUTH AT BEDTIME NEEDED FOR BREAKTHROUGH ANXIETY No Longer Active TAKE 1 TABLET BY MOUTH AT BEDTIME NEEDED FOR BREAKTHROUGH ANXIETY 07/07/2018 [facility] Ondansetron 4 MG Disintegrating Tablet [Zofran] 4 mg=1 tab, PO, TID, PRN Nausea & Vomiting, Dissolve tab under tongue, # 3 tab, 0 Refill(s) No Longer Active 04/16/2018 [facility] Ranitidine 75 MG Oral Tablet [Zantac] 75 mg=1 tab, PO, BID, # 14 tab, 0 Refill(s) No Longer Active 04/16/2018 [facility] Cephalexin 500 MG Oral Capsule [Keflex] 500 mg=1 cap, PO, BID, X 7 day, # 14 cap, 0 Refill(s) No Longer Active 04/16/2018 [facility] Tylenol 650 mg, Route: PO, Drug form: TAB, ONCE, Dosing Weight 100, kg, Priority: STAT, Start date: 04/16/18 10:07:00 ACQUISITIONS LOGISTICS ANALYST, Stop date: 04/16/18 10:07:00 ACQUISITIONS LOGISTICS ANALYST Inactive 04/16/2018 [facility] Bentyl 20 mg, Route: IM, ONCE, Dosing Weight 100, kg, Start date: 04/16/18 8:35:00 ACQUISITIONS LOGISTICS ANALYST, Stop date: 04/16/18 8:35:00 ACQUISITIONS LOGISTICS ANALYST Inactive 04/16/2018 [facility] GI cocktail (aluminum hydroxide/magnesium hydroxide/lidocaine/simethicone) 30 mL, Route: PO, Dosing Weight 100, kg, ONCE, STAT, Start date: 04/16/18 8:35:00 ACQUISITIONS LOGISTICS ANALYST, Stop date: 04/16/18 8:35:00 ACQUISITIONS LOGISTICS ANALYST Inactive 04/16/2018 [facility] Ketorolac 15 mg, Route: IVP, ONCE, Dosing Weight 100, kg, Priority: STAT, Start date: 04/16/18 8:35:00 ACQUISITIONS LOGISTICS ANALYST, Stop date: 04/16/18 8:35:00 ACQUISITIONS LOGISTICS ANALYST Inactive 04/16/2018 [facility] Saline Flush 0.9% 10 mL, Route: IVP, Drug Form: INJ, Dosing Weight 100, kg, PRN, PRN Line Flush, Start date: 04/16/18 8:35:00 ACQUISITIONS LOGISTICS ANALYST, Duration: 30 day, Stop date: 05/16/18 8:34:00 CSTNotes: (Same as: BD Posiflush) Inactive 04/16/2018 [facility] Sodium Chloride 0.9% (Bolus) IV 1,000 mL, Infuse Over: 1 hr, Route: IV, ONCE, Priority: STAT, Dosing Weight 100 kg, Start date: 04/16/18 8:35:00 ACQUISITIONS LOGISTICS ANALYST, Stop date: 04/16/18 8:35:00 ACQUISITIONS LOGISTICS ANALYST Inactive 04/16/2018 [facility] KLONOPIN 2 MG ORAL TABLET Take one [...] tablet By Mouth at bedtime 04/14/2018 [facility] Sucralfate 100 MG/ML Oral Suspension [Carafate] 1 gm, 1 tab, Route: PO, Drug form: TAB, ONCE, Dosing Weight 100, kg, Start date: 04/05/18 9:03:00 ACQUISITIONS LOGISTICS ANALYST, Stop date: 04/05/18 9:03:00 CSTNotes: May interfere w/enteral feeds - Take 1 hr before or 2 hr after antacids, dairy pdt, meals & minerals - On empty stomach. For patients unable to swallow tablet, dissolve in 10mL - 30mL of water or juice and stir before giving. (Same As: Carafate) No Longer Active 04/05/2018 [facility] GI cocktail (aluminum hydroxide/magnesium hydroxide/lidocaine/simethicone) 30 mL, Route: PO, Drug Form: SUSP, Dosing Weight 100, kg, ONCE, STAT, Start date: 04/05/18 9:02:00 ACQUISITIONS LOGISTICS ANALYST, Stop date: 04/05/18 9:02:00 CSTNotes: G.I. Cocktail - aluminum hydroxide/magnesium hydroxide/lidocaine/simethicone Inactive 04/05/2018 [facility] Morphine 4 mg, 1 mL, Route: IVP, Drug form: SOLN, ONCE, Dosing Weight 100, kg, Priority: STAT, Start date: 04/05/18 8:39:00 ACQUISITIONS LOGISTICS ANALYST, Stop date: 04/05/18 8:39:00 CSTNotes: (Same as:MORPhine Sulfate) Inactive 04/05/2018 [facility] Ondansetron 4 mg, 2 mL, Route: IVP, Drug form: INJ, ONCE, Dosing Weight 100, kg, Priority: STAT, Start date: 04/05/18 8:39:00 ACQUISITIONS LOGISTICS ANALYST, Stop date: 04/05/18 8:39:00 CSTNotes: (Same as: Zofran) MEDICATION WASTE Product Size: 4 mg Product Wasted: ___ mg Inactive 04/05/2018 [facility] Sodium Chloride 0.9% (Bolus) IV 1,000 mL, 1000 ml/hr, Infuse Over: 1 hr, Route: IV, 1,000, Drug form: INJ, ONCE, Priority: STAT, Dosing Weight 100 kg, Start date: 04/05/18 8:39:00 ACQUISITIONS LOGISTICS ANALYST, Stop date: 04/05/18 8:39:00 ACQUISITIONS LOGISTICS ANALYST Inactive 04/05/2018 [facility] Ibuprofen 800 mg, Route: PO, Drug form: TAB, ONCE, Dosing Weight 100, kg, Priority: STAT, Start date: 03/21/18 8:40:00 CDT, Stop date: 03/21/18 8:40:00 CDT Inactive 03/21/2018 [facility] Zofran ODT 4 mg, Route: PO, Drug form: TABDIS, ONCE, Dosing Weight 100, kg, Priority: STAT, Start date: 03/21/18 8:40:00 CDT, Stop date: 03/21/18 8:40:00 CDT Inactive 03/21/2018 [facility] [facility] Zofran 4 mg, Route: IVP, Drug form: INJ, ONCE, Dosing Weight 100, kg, Priority: STAT, Start date: 03/21/18 8:28:00 CDT, Stop date: 03/21/18 8:28:00 CDT Inactive 03/21/2018 [facility] Morphine 4 mg, Route: IVP, Drug form: INJ, ONCE, Dosing Weight 100, kg, Priority: STAT, Start date: 03/21/18 8:28:00 CDT, Stop date: 03/21/18 8:28:00 CDT Inactive 03/21/2018 [facility] Ibuprofen 400 mg, 1 tab, Route: PO, Drug form: TAB, ONCE, Dosing Weight 105.545, kg, Priority: STAT, Start date: 03/19/18 12:16:00 CDT, Stop date: 03/19/18 12:16:00 CDTNotes: (Same as: Motrin) "Do Not Crush" Give with food. Inactive 03/19/2018 [facility] Acetaminophen 1,000 mg, 2 tab, Route: PO, Drug form: TAB, ONCE, Dosing Weight 105.545, kg, Priority: STAT, Start date: 03/19/18 12:16:00 CDT, Stop date: 03/19/18 12:16:00 CDTNotes: Max acetaminophen 4000 mg/day (4 gm/day). (Same as: Tylenol Extra Strength) Inactive 03/19/2018 [facility] Sodium Chloride 0.9% (Bolus) IV 1,000 mL, 1000 ml/hr, Infuse Over: 1 hr, Route: IV, 1,000, Drug form: INJ, ONCE, Priority: STAT, Dosing Weight 105.545 kg, Start date: 03/19/18 10:24:00 CDT, Stop date: 03/19/18 10:24:00 CDT Inactive 03/19/2018 [facility] Morphine 4 mg, 1 mL, Route: IVP, Drug form: SOLN, ONCE, Dosing Weight 105.545, kg, Priority: STAT, Start date: 03/19/18 10:24:00 CDT, Stop date: 03/19/18 10:24:00 CDTNotes: (Same as:MORPhine Sulfate) Inactive 03/19/2018 [facility] Ondansetron 4 mg, 2 mL, Route: IVP, Drug form: INJ, ONCE, Dosing Weight 105.545, kg, Priority: STAT, Start date: 03/19/18 10:24:00 CDT, Stop date: 03/19/18 10:24:00 CDTNotes: (Same as: Zofran) MEDICATION WASTE Product Size: 4 mg Product Wasted: ___ mg Inactive 03/19/2018 [facility] Ondansetron 4 MG Disintegrating Tablet [Zofran] 4 mg=1 tab, PO, BID, PRN Nausea and Vomiting, Dissolve tab under tongue, # 6 tab, 0 Refill(s) No Longer Active 03/18/2018 [facility] Morphine 4 mg, Route: IVP, ONCE, Dosing Weight 104.091, kg, Priority: STAT, Start date: 03/18/18 10:20:00 CDT, Stop date: 03/18/18 10:20:00 CDT Inactive 03/18/2018 [facility] Sodium Chloride 0.9% (Bolus) IV 1,000 mL, 1000 ml/hr, Infuse Over: 1 hr, Route: IV, 1,000, Drug form: INJ, ONCE, Priority: STAT, Dosing Weight 104.091 kg, Start date: 03/18/18 8:47:00 CDT, Stop date: 03/18/18 8:47:00 CDT Inactive 03/18/2018 [facility] Ondansetron 4 mg, 2 mL, Route: IVP, Drug form: INJ, ONCE, Dosing Weight 104.091, kg, Priority: STAT, Start date: 03/18/18 8:47:00 CDT, Stop date: 03/18/18 8:47:00 CDTNotes: (Same as: Kimber) MEDICATION WASTE Product Size: 4 mg Product Wasted: ___ mg Inactive 03/18/2018 [facility] Morphine 4 mg, 1 mL, Route: IVP, Drug form: SOLN, ONCE, Dosing Weight 104.091, kg, Priority: STAT, Start date: 03/18/18 8:47:00 CDT, Stop date: 03/18/18 8:47:00 CDTNotes: (Same as:MORPhine Sulfate) Inactive 03/18/2018 [facility] Levofloxacin (Levaquin) 500 Mg Tablet Daily for 10 Active Bigg 03/04/2018 [facility] Levofloxacin (Levaquin) 500 Mg Tablet, 500 Mg Oral Daily for 10 Active Bigg 03/04/2018 [facility] Levofloxacin (Levaquin) 500 Mg Tablet Daily for 10 Active Bigg 03/04/2018 [facility] Morphine 2 mg, 0.5 mL, Route: IVP, Drug form: SOLN, ONCE, Dosing Weight 100, kg, Priority: STAT, Start date: 03/01/18 20:51:00 CDT, Stop date: 03/01/18 20:51:00 CDTNotes: (Same as:MORPhine Sulfate) Inactive 03/02/2018 [facility] ibuprofen 600 mg oral tablet 600 mg=1 tab, PO, Q6H, PRN Pain or Fever, Take with food, X 10 day, # 40 tab, 0 Refill(s) No Longer Active 03/02/2018 [facility] Zofran ODT 4 mg, 1 tab, Route: PO, Drug form: TABDIS, ONCE, Dosing Weight 100, kg, Priority: STAT, Start date: 03/01/18 19:25:00 CDT, Stop date: 03/01/18 19:25:00 CDTNotes: (Same as: Zofran ODT) Inactive 03/02/2018 [facility] Morphine 4 mg, 1 mL, Route: IVP, Drug form: SOLN, ONCE, Dosing Weight 100, kg, Priority: STAT, Start date: 03/01/18 19:24:00 CDT, Stop date: 03/01/18 19:24:00 CDTNotes: (Same as:MORPhine Sulfate) Inactive 03/02/2018 [facility] ketOROLAC 30 mg/mL injectable solution 30 mg, Route: IVP, Drug form: INJ, ONCE, Dosing Weight 100, kg, Priority: STAT, Start date: 02/22/18 9:56:00 CDT, Stop date: 02/22/18 9:56:00 CDT Inactive 02/22/2018 [facility] Rocephin 1 gm, Route: IVPB, Drug form: PDR/INJ, ONCE, Dosing Weight 100, kg, Priority: STAT, Start date: 02/22/18 9:56:00 CDT, Stop date: 02/22/18 9:56:00 CDT, ABX Indication: Urinary Tract Infection Inactive 02/22/2018 [facility] Fleet Enema 133 mL, Route: CA, Drug Form: SOLN, Dosing Weight 100, kg, ONCE, Start date: 02/22/18 9:54:00 CDT, Stop date: 02/22/18 9:54:00 CDT, For Constipation > 12 years, Pediatric Dosing Inactive 02/22/2018 [facility] Lactulose 667 MG/ML Oral Solution 20 gm, 30 ml, Route: PO, Drug form: SYRP, ONCE, Dosing Weight 100, kg, Priority: STAT, Start date: 02/22/18 9:54:00 CDT, Stop date: 02/22/18 9:54:00 CDTNotes: (Same as:Chronulac) Inactive 02/22/2018 [facility] NS (Bolus) IV 1,000 mL, 1,000 ml/hr, Infuse Over: 1 hr, Route: IV, ONCE, Priority: STAT, Dosing Weight 100 kg, Start date: 02/22/18 9:53:00 CDT, Stop date: 02/22/18 9:53:00 CDT Inactive 02/22/2018 [facility] Metoclopramide 10 mg, Route: IVP, Drug form: INJ, ONCE, Dosing Weight 100, kg, Priority: STAT, Start date: 02/22/18 8:38:00 CDT, Stop date: 02/22/18 8:38:00 CDT Inactive 02/22/2018 [facility] Ketorolac 30 mg, Route: IVP, ONCE, Dosing Weight 100, kg, Priority: STAT, Start date: 02/22/18 8:38:00 CDT, Stop date: 02/22/18 8:38:00 CDT Inactive 02/22/2018 [facility] Saline Flush 0.9% 10 mL, Route: IVP, Drug Form: INJ, Dosing Weight 100, kg, PRN, PRN Line Flush, Start date: 02/22/18 8:38:00 CDT, Duration: 30 day, Stop date: 03/24/18 8:37:00 CDTNotes: Same as: BD Posiflush Sterile Inactive 02/22/2018 [facility] Morphine 4 mg, Route: IV, ONCE, Dosing Weight 100, kg, Start date: 02/19/18 11:46:00 CDT, Stop date: 02/19/18 11:46:00 CDT Inactive 02/19/2018 [facility] Zofran ODT 4 mg, Route: PO, Drug form: TABDIS, ONCE, Dosing Weight 100, kg, Priority: STAT, Start date: 02/19/18 11:45:00 CDT, Stop date: 02/19/18 11:45:00 CDT Inactive 02/19/2018 [facility] Morphine 4 mg, Route: IM, ONCE, Dosing Weight 100, kg, Priority: STAT, Start date: 02/19/18 11:45:00 CDT, Stop date: 02/19/18 11:45:00 CDT Inactive 02/19/2018 [facility] ibuprofen 600 mg oral tablet 600 mg=1 tab, PO, Q6H, PRN Pain or Fever, Take with food, X 10 day, # 40 tab, 0 Refill(s) No Longer Active 02/19/2018 [facility] Ondansetron 4 MG Disintegrating Tablet [Zofran] 4 mg=1 tab, PO, BID, PRN Nausea and Vomiting, Dissolve tab under tongue, # 10 tab, 0 Refill(s) No Longer Active 02/19/2018 [facility] Acetaminophen 325 MG / Hydrocodone Bitartrate 5 MG Oral Tablet [Houghton 5/325] 1 tab, Route: PO, Drug Form: TAB, Dosing Weight 100, kg, ONCE, STAT, Start date: 02/19/18 10:09:00 CDT, Stop date: 02/19/18 10:09:00 CDTNotes: (Same as: Houghton 325/5) Do not exceed 4gm/day of acetaminophen. Inactive 02/19/2018 [facility] Ketorolac 30 mg, 1 mL, Route: IVP, Drug form: INJ, ONCE, Dosing Weight 100, kg, Priority: STAT, Start date: 02/19/18 9:00:00 CDT, Stop date: 02/19/18 9:00:00 CDTNotes: (Same as:Toradol) IV bolus must be given >15 seconds. Give IM administration slowly and deeply into the muscle. Not for use > 4 days MEDICATION WASTE Product Size: 30 mg Product Wasted: ___ mg Inactive 02/19/2018 [facility] Zofran ODT 4 mg, 1 tab, Route: PO, Drug form: TABDIS, ONCE, Dosing Weight 100, kg, Priority: STAT, Start date: 02/19/18 8:12:00 CDT, Stop date: 02/19/18 8:12:00 CDTNotes: (Same as: Zofran ODT) Inactive 02/19/2018 [facility] Morphine 4 mg, 1 mL, Route: IVP, Drug form: SOLN, ONCE, Dosing Weight 100, kg, Priority: STAT, Start date: 02/19/18 8:12:00 CDT, Stop date: 02/19/18 8:12:00 CDTNotes: (Same as:MORPhine Sulfate) Inactive 02/19/2018 [facility] Sodium Chloride 0.9% (Bolus) IV 1,000 mL, 1000 ml/hr, Infuse Over: 1 hr, Route: IV, 1,000, Drug form: INJ, ONCE, Priority: STAT, Dosing Weight 100 kg, Start date: 02/19/18 8:12:00 CDT, Stop date: 02/19/18 8:12:00 CDT Inactive 02/19/2018 [facility] Saline Flush 0.9% 10 mL, Route: IVP, Drug Form: INJ, Dosing Weight 100, kg, PRN, PRN Line Flush, Start date: 02/19/18 8:12:00 CDT, Duration: 30 day, Stop date: 03/21/18 8:11:00 CDTNotes: (Same as: BD Posiflush) Inactive 02/19/2018 [facility] omeprazole 20 mg oral delayed release capsule 20 mg=1 cap, PO, Daily, # 30 cap, 0 Refill(s) No Longer Active 02/14/2018 [facility] Ondansetron 4 MG Disintegrating Tablet [Zofran] 4 mg=1 tab, PO, BID, PRN Nausea and Vomiting, Dissolve tab under tongue, # 20 tab, 0 Refill(s) No Longer Active 02/14/2018 [facility] GI cocktail (aluminum hydroxide/magnesium hydroxide/lidocaine/simethicone) 30 mL, Route: PO, Drug Form: SUSP, Dosing Weight 100, kg, ONCE, STAT, Start date: 02/14/18 10:27:00 CDT, Stop date: 02/14/18 10:27:00 CDTNotes: G.I. Cocktail - aluminum hydroxide/magnesium hydroxide/lidocaine/simethicone Inactive 02/14/2018 [facility] Zofran ODT 4 mg, 1 tab, Route: PO, Drug form: TABDIS, ONCE, Dosing Weight 100, kg, Priority: STAT, Start date: 02/14/18 7:13:00 CDT, Stop date: 02/14/18 7:13:00 CDTNotes: (Same as: Zofran ODT) Inactive 02/14/2018 [facility] pantoprazole 40 mg, Route: IVP, Drug form: INJ, ONCE, Dosing Weight 100, kg, For IV push reconstitute with 10 ml 0.9% sodium chloride and push over at least 3 minutes, Priority: STAT, Start date: 02/14/18 7:13:00 CDT, Stop date: 02/14/18 7:13:00 CDTNotes: For IV push reconstitute with 10 ml 0.9% sodium chloride and push over 2 minutes. (Same as: Protonix) Inactive 02/14/2018 [facility] Morphine 4 mg, 1 mL, Route: IVP, Drug form: SOLN, ONCE, Dosing Weight 100, kg, Priority: STAT, Start date: 02/14/18 7:13:00 CDT, Stop date: 02/14/18 7:13:00 CDTNotes: (Same as:MORPhine Sulfate) Inactive 02/14/2018 [facility] Saline Flush 0.9% 10 mL, Route: IVP, Drug Form: INJ, Dosing Weight 100, kg, PRN, PRN Line Flush, Start date: 02/14/18 7:13:00 CDT, Duration: 30 day, Stop date: 03/16/18 7:12:00 CDTNotes: Same as: BD Posiflush Sterile Inactive 02/14/2018 [facility] Sodium Chloride 0.9% (Bolus) IV 1,000 mL, 1000 ml/hr, Infuse Over: 1 hr, Route: IV, 1,000, Drug form: INJ, ONCE, Priority: STAT, Dosing Weight 100 kg, Start date: 02/14/18 7:13:00 CDT, Stop date: 02/14/18 7:13:00 CDT Inactive 02/14/2018 [facility] Cephalexin Monohydrate (Keflex) 500 Mg Capsule Every 6 Hours Active Bigg 01/21/2018 [facility] Prednisone 20 Mg Tab Daily Active Bigg01/21/2018 [facility] Cephalexin Monohydrate (Keflex) 500 Mg Capsule, 500 Mg Oral Every 6 Hours Active Bigg01/21/2018 [facility] Prednisone 20 Mg Tab, 40 Mg Oral Daily Active Bigg 01/21/2018 [facility] Cephalexin Monohydrate (Keflex) 500 Mg Capsule Every 6 Hours Active Bigg01/21/2018 [facility] Prednisone 20 Mg Tab Daily Active Bigg 01/21/2018 [facility] WELLBUTRIN XL 150 MG ORAL TABLET [...] tablets By Mouth at bedtime 12/09/2017 [facility] Ondansetron 4 MG Oral Tablet [Zofran] 4 mg=1 tab, PO, BID, # 10 tab, 0 Refill(s) Active 12/02/2017 [facility] Dicyclomine Hydrochloride 20 MG Oral Tablet [Bentyl] 20 mg=1 tab, PO, QID-Before Meals, # 20 tab, 0 Refill(s) Active 12/02/2017 [facility] Omnipaque 300 100 mL, Route: IV, Dosing Weight 99.091, kg, ONCE, Start date: 12/02/17 8:36:00 CDT, Stop date: 12/02/17 8:36:00 CDT Inactive 12/02/2017 [facility] Zofran ODT 4 mg, 1 tab, Route: PO, Drug form: TABDIS, ONCE, Dosing Weight 99.091, kg, Priority: STAT, Start date: 12/02/17 7:56:00 CDT, Stop date: 12/02/17 7:56:00 CDTNotes: (Same as: Zofran ODT) Inactive 12/02/2017 [facility] Morphine 4 mg, Route: IVP, ONCE, Dosing Weight 99.091, kg, Priority: STAT, Start date: 12/02/17 7:26:00 CDT, Stop date: 12/02/17 7:26:00 CDT Inactive 12/02/2017 [facility] NS (Bolus) IV 1,000 mL, 1,000 ml/hr, Infuse Over: 1 hr, Route: IV, ONCE, Priority: STAT, Dosing Weight 99.091 kg, Start date: 12/02/17 7:26:00 CDT, Stop date: 12/02/17 7:26:00 CDT Inactive 12/02/2017 [facility] LUNESTA 3 MG ORAL TABLET Take one [...] tablet By Mouth at bedtime 11/18/2017 [facility] Dicyclomine Hydrochloride 20 MG Oral Tablet [Bentyl] 20 mg=1 tab, PO, QID-Before Meals, PRN Abdominal Pain, # 28 tab, 0 Refill(s) Active 10/26/2017 [facility] Bentyl 20 mg, 1 tab, Route: PO, Drug form: TAB, ONCE, Dosing Weight 102.33, kg, Start date: 10/26/17 2:15:00 CDT, Stop date: 10/26/17 2:15:00 CDTNotes: (Same as: Bentyl) Inactive 10/26/2017 [facility] Motrin 800 mg oral tablet 800 mg=1 tab, PO, Q8H, PRN Pain, Take with food, X 7 day, # 21 tab, 0 Refill(s) Active 10/26/2017 [facility] Morphine 4 mg, 1 mL, Route: IVP, Drug form: SOLN, ONCE, Dosing Weight 102.33, kg, Priority: STAT, Start date: 10/26/17 0:32:00 CDT, Stop date: 10/26/17 0:32:00 CDTNotes: (Same as:MORPhine Sulfate) Inactive 10/26/2017 [facility] Zofran 4 mg, 2 mL, Route: IVP, Drug form: INJ, ONCE, Dosing Weight 102.33, kg, Priority: STAT, Start date: 10/25/17 23:13:00 CDT, Stop date: 10/25/17 23:13:00 CDTNotes: (Same as: Zofran) MEDICATION WASTE Product Size: 4 mg Product Wasted: ___ mg Inactive 10/26/2017 [facility] ketOROLAC 30 mg/mL injectable solution 30 mg, Route: IVP, Drug form: INJ, ONCE, Dosing Weight 102.33, kg, Priority: STAT, Start date: 10/25/17 23:08:00 CDT, Stop date: 10/25/17 23:08:00 CDT Inactive 10/26/2017 [facility] Ondansetron 4 mg, 2 mL, Route: IVP, Drug form: INJ, ONCE, Dosing Weight 100, kg, Priority: STAT, Start date: 10/25/17 21:40:00 CDT, Stop date: 10/25/17 21:40:00 CDTNotes: (Same as: Kimber) MEDICATION WASTE Product Size: 4 mg Product Wasted: ___ mg Inactive 10/26/2017 [facility] Sodium Chloride 0.9% (Bolus) IV 1,000 mL, 1000 ml/hr, Infuse Over: 1 hr, Route: IV, 1,000, Drug form: INJ, ONCE, Priority: STAT, Dosing Weight 100 kg, Start date: 10/25/17 21:40:00 CDT, Stop date: 10/25/17 21:40:00 CDT Inactive 10/26/2017 [facility] Saline Flush 0.9% 10 mL, Route: IVP, Drug Form: INJ, Dosing Weight 100, kg, PRN, PRN Line Flush, Start date: 10/25/17 21:40:00 CDT, Duration: 30 day, Stop date: 11/24/17 21:39:00 CDTNotes: (Same as: BD Posiflush) No Longer Active 10/26/2017 [facility] ZYPREXA 10 MG ORAL TABLET Take one [...] Active Take one tablet at bedtime 08/28/2017 [facility] Metoclopramide 10 MG Oral Tablet [Reglan] 10 mg=1 tab, PO, QID, X 7 day, # 28 tab, 0 Refill(s) No Longer Active 08/25/2017 [facility] Ketorolac Tromethamine 10 MG Oral Tablet 10 mg=1 tab, PO, Q6H, X 5 day, # 20 tab, 0 Refill(s) No Longer Active 08/25/2017 [facility] Acetaminophen 325 MG / Hydrocodone Bitartrate 10 MG Oral Tablet [[place] 10/325] 1 tab, Route: PO, Drug Form: TAB, Dosing Weight 100, kg, ONCE, STAT, Start date: 08/25/17 13:53:00 CDT, Stop date: 08/25/17 13:53:00 CDT Inactive 08/25/2017 [facility] Ketorolac 30 mg, Route: IVP, Drug form: INJ, ONCE, Dosing Weight 100, kg, Priority: STAT, Start date: 08/25/17 12:27:00 CDT, Stop date: 08/25/17 12:27:00 CDT Inactive 08/25/2017 [facility] Reglan 10 mg, Route: IVP, Drug form: INJ, ONCE, Dosing Weight 100, kg, Priority: STAT, Start date: 08/25/17 11:07:00 CDT, Stop date: 08/25/17 11:07:00 CDT Inactive 08/25/2017 [facility] Bentyl 20 mg, Route: IM, ONCE, Dosing Weight 100, kg, Start date: 08/25/17 11:06:00 CDT, Stop date: 08/25/17 11:06:00 CDT Inactive 08/25/2017 [facility] NS (Bolus) IV 1,000 mL, 1,000 ml/hr, Infuse Over: 1 hr, Route: IV, ONCE, Priority: STAT, Dosing Weight 100 kg, Start date: 08/25/17 11:06:00 CDT, Stop date: 08/25/17 11:06:00 CDT Inactive 08/25/2017 [facility] Acetaminophen With Codeine (Tylenol With Codeine #3 Tablet) 1 Each Tablet, 300 Mg Oral Every 8 Hours as needed for Pain Active [facility] 08/24/2017 [facility] Cyclobenzaprine Hcl 10 Mg Tablet, 5 Mg Oral Three Times A Day Active [facility] 08/24/2017 [facility] Ondansetron (Zofran Odt) 4 Mg Tab.rapdis, 4 Mg Oral Q4- 6H Prn Active [facility] 08/24/2017 [facility] Polyethylene Glycol 3350 (Miralax) 17 Gm Powd.pack, 17 Gm Oral Twice A Day Active [facility] 08/24/2017 [facility] Senna Fruit/Conc/Doc Sod/Bisa 1 Ea Tab, 2 Ea Oral Bedtime Active [facility] 08/24/2017 [facility] Acetaminophen With Codeine (Tylenol With Codeine #3 Tablet) 1 Each Tablet, 300 Mg Oral Every 8 Hours as needed for Pain Active [facility] 08/24/2017 [facility] Cyclobenzaprine Hcl 10 Mg Tablet, 5 Mg Oral Three Times A Day Active [facility] 08/24/2017 [facility] Ondansetron (Zofran Odt) 4 Mg Tab.rapdis, 4 Mg Oral Q4- 6H Prn Active [facility] 08/24/2017 [facility] Polyethylene Glycol 3350 (Miralax) 17 Gm Powd.pack, 17 Gm Oral Twice A Day Active [facility] 08/24/2017 [facility] Ondansetron 4 MG Disintegrating Tablet [Zofran] 4 mg=1 tab, PO, BID, PRN Nausea and Vomiting, Dissolve tab under tongue, # 10 tab, 0 Refill(s) Active 07/10/2017 [facility] Dicyclomine Hydrochloride 20 MG Oral Tablet [Bentyl] 20 mg=1 tab, PO, QID, # 28 tab, 0 Refill(s) Active 07/10/2017 [facility] Bentyl 20 mg, Route: PO, ONCE, Dosing Weight 100, kg, Start date: 07/10/17 9:31:00 [employer]ITIONS LOGISTICS ANALYST, Stop date: 07/10/17 9:31:00 AC[employer]ISITIONS LOGISTICS ANALYST Inactive 07/10/2017 [facility] Ketorolac 30 mg, Route: IVP, Drug form: INJ, ONCE, Dosing Weight 100, kg, Priority: STAT, Start date: 07/10/17 8:32:00 AC[employer]ISITIONS LOGISTICS ANALYST, Stop date: 07/10/17 8:32:00 AC[employer]ISITIONS LOGISTICS ANALYST Inactive 07/10/2017 [facility] Zofran 4 mg, Route: IVP, Drug form: INJ, ONCE, Dosing Weight 100, kg, Priority: STAT, Start date: 07/10/17 8:32:00 AC[employer]ISITIONS LOGISTICS ANALYST, Stop date: 07/10/17 8:32:00 ACQUISITIONS LOGISTICS ANALYST Inactive 07/10/2017 [facility] NS (Bolus) IV 1,000 mL, 1,000 ml/hr, Infuse Over: 1 hr, Route: IV, ONCE, Priority: STAT, Dosing Weight 100 kg, Start date: 07/10/17 8:32:00 ACQUISITIONS LOGISTICS ANALYST, Stop date: 07/10/17 8:32:00 AC[employer]ISITIONS LOGISTICS ANALYST Inactive 07/10/2017 [facility] normal saline 0.9% IV 1000 mL 1,000 mL, Rate: 1,000 ml/hr, Infuse over: 1 hr, Route: IV, Dosing Weight 100 kg, Total Volume: 1,000, Priority: STAT, Start date: 07/10/17 8:27:00 AC[employer]ISITIONS LOGISTICS ANALYST, Duration: 1 doses or times, Stop date: 07/10/17 9:26:00 AC[employer]ISITIONS LOGISTICS ANALYST, 2.16, m2 Inactive 07/10/2017 [facility] Zofran 4 mg, Route: IVP, Drug form: INJ, ONCE, Dosing Weight 100, kg, Priority: STAT, Start date: 07/10/17 8:24:00 ACQUISITIONS LOGISTICS ANALYST, Stop date: 07/10/17 8:24:00 ACQUISITIONS LOGISTICS ANALYST Inactive 07/10/2017 [facility] Ondansetron 4 MG Disintegrating Tablet [Zofran] 4 mg=1 tab, PO, BID, PRN Nausea and Vomiting, Dissolve tab under tongue, # 10 tab, 0 Refill(s) Active 06/10/2017 [facility] ibuprofen 600 mg oral tablet 600 mg=1 tab, PO, Q6H, PRN Pain or Fever, Take with food, X 10 day, # 40 tab, 0 Refill(s) No Longer Active 06/10/2017 [facility] Ondansetron 4 mg, Route: IVP, Drug form: INJ, ONCE, Dosing Weight 100, kg, Priority: STAT, Start date: 06/10/17 11:12:00 ACQUISITIONS LOGISTICS ANALYST, Stop date: 06/10/17 11:12:00 ACQUISITIONS LOGISTICS ANALYST Inactive 06/10/2017 [facility] Morphine 2 mg, Route: IVP, ONCE, Dosing Weight 100, kg, Priority: STAT, Start date: 06/10/17 11:12:00 ACQUISITIONS LOGISTICS ANALYST, Stop date: 06/10/17 11:12:00 ACQUISITIONS LOGISTICS ANALYST Inactive 06/10/2017 [facility] Sodium Chloride 0.9% (Bolus) IV 1,000 mL, Infuse Over: 1 hr, Route: IV, ONCE, Priority: STAT, Dosing Weight 100 kg, Start date: 06/10/17 8:36:00 ACQUISITIONS LOGISTICS ANALYST, Stop date: 06/10/17 8:36:00 ACQUISITIONS LOGISTICS ANALYST Inactive 06/10/2017 [facility] Docusate Sodium 100 MG Oral Capsule [Colace] 100 mg=1 cap, PO, BID, PRN Constipation, # 20 cap, 0 Refill(s) Active 04/21/2017 [facility] Cephalexin 500 MG Oral Capsule [Keflex] 500 mg=1 cap, PO, QID, X 5 day, # 20 cap, 0 Refill(s) Active 04/21/2017 [facility] Motrin 600 mg oral tablet 600 mg=1 tab, PO, Q6H, PRN Pain, take with food, # 30 tab, 0 Refill(s) Active 04/21/2017 [facility] Zofran 4 mg, Route: IVP, Drug form: INJ, ONCE, Dosing Weight 100, kg, Priority: STAT, Start date: 04/21/17 11:37:00 ACQUISITIONS LOGISTICS ANALYST, Stop date: 04/21/17 11:37:00 ACQUISITIONS LOGISTICS ANALYST Inactive 04/21/2017 [facility] Morphine 4 mg, Route: IVP, ONCE, Dosing Weight 100, kg, Priority: STAT, Start date: 04/21/17 11:36:00 ACQUISITIONS LOGISTICS ANALYST, Stop date: 04/21/17 11:36:00 ACQUISITIONS LOGISTICS ANALYST Inactive 04/21/2017 [facility] NS (Bolus) IV 1,000 mL, 1,000 ml/hr, Infuse Over: 1 hr, Route: IV, ONCE, Priority: STAT, Dosing Weight 100 kg, Start date: 04/21/17 11:35:00 ACQUISITIONS LOGISTICS ANALYST, Stop date: 04/21/17 11:35:00 ACQUISITIONS LOGISTICS ANALYST Inactive 04/21/2017 [facility] Docusate Sodium 100 MG Oral Capsule [Colace] 100 mg=1 cap, PO, BID, PRN Constipation, # 20 cap, 0 Refill(s) Active 04/11/2017 [facility] Sulfamethoxazole 800 MG / Trimethoprim 160 MG Oral Tablet [Bactrim] 1 tab, PO, BID, X 7 day, # 14 tab, 0 Refill(s) Active 04/11/2017 [facility] Morphine 4 mg, Route: IVP, ONCE, Dosing Weight 100, kg, Priority: STAT, Start date: 04/11/17 9:14:00 ACQUISITIONS LOGISTICS ANALYST, Stop date: 04/11/17 9:14:00 ACQUISITIONS LOGISTICS ANALYST Inactive 04/11/2017 [facility] Zofran 4 mg, Route: IVP, Drug form: INJ, ONCE, Dosing Weight 100, kg, Priority: STAT, Start date: 04/11/17 9:14:00 ACQUISITIONS LOGISTICS ANALYST, Stop date: 04/11/17 9:14:00 ACQUISITIONS LOGISTICS ANALYST Inactive 04/11/2017 [facility] NS (Bolus) IV 1,000 mL, 1,000 ml/hr, Infuse Over: 0.5 hr, Route: IV, ONCE, Priority: STAT, Dosing Weight 100 kg, Start date: 04/11/17 9:13:00 ACQUISITIONS LOGISTICS ANALYST, Stop date: 04/11/17 9:13:00 ACQUISITIONS LOGISTICS ANALYST Inactive 04/11/2017 [facility] Pepcid 20 mg oral tablet 20 mg=1 tab, PO, BID, # 60 tab, 0 Refill(s) Active 04/03/2017 [facility] Zofran ODT 4 mg oral tablet, disintegrating 4 mg=1 tab, PO, BID, PRN Nausea and Vomiting, Dissolve tab under tongue, # 10 tab, 0 Refill(s) Active 04/03/2017 [facility] GI cocktail 30 mL, Route: PO, Dosing Weight 90.909, kg, ONCE, STAT, Start date: 04/03/17 8:59:00 CDT, Stop date: 04/03/17 8:59:00 CDT Inactive 04/03/2017 [facility] morphine Sulfate 4 mg, Route: IVP, ONCE, Dosing Weight 90.909, kg, Priority: STAT, Start date: 04/03/17 8:03:00 CDT, Stop date: 04/03/17 8:03:00 CDT Inactive 04/03/2017 [facility] ondansetron 4 mg, Route: IVP, ONCE, Dosing Weight 90.909, kg, Priority: STAT, Start date: 04/03/17 8:03:00 CDT, Stop date: 04/03/17 8:03:00 CDT Inactive 04/03/2017 [facility] Saline Flush 0.9% 10 mL, Route: IVP, Drug Form: INJ, Dosing Weight 90.909, kg, PRN, PRN Line Flush, Start date: 04/03/17 8:03:00 CDT, Duration: 30 day, Stop date: 05/03/17 7:02:00 ACQUISITIONS LOGISTICS ANALYST Inactive 04/03/2017 [facility] Sodium Chloride 0.9% (Bolus) IV 1,000 mL, Infuse Over: 1 hr, Route: IV, ONCE, Priority: STAT, Dosing Weight 90.909 kg, Start date: 04/03/17 8:03:00 CDT, Duration: 1 doses or times, Stop date: 04/03/17 8:03:00 CDT Inactive 04/03/2017 [facility] Motrin 800 mg oral tablet 800 mg=1 tab, PO, TID, # 30 tab, 0 Refill(s) Active 03/24/2017 [facility] Acetaminophen 325 MG / Hydrocodone Bitartrate 5 MG Oral Tablet 1 tab, Route: PO, Drug Form: TAB, Dosing Weight 90.909, kg, ONCE, STAT, Start date: 03/24/17 9:44:00 CDT, Stop date: 03/24/17 9:44:00 CDTNotes: (Same as: [place] 325/5) Do not exceed 4gm/day of acetaminophen. Inactive 03/24/2017 [facility] ibuprofen 600 mg oral tablet 600 mg=1 tab, PO, Q6H, PRN Pain or Fever, Take with food, X 10 day, # 40 tab, 0 Refill(s) Active 03/11/2017 [facility] Ondansetron 4 MG Disintegrating Tablet [Zofran] 4 mg=1 tab, PO, BID, PRN Nausea and Vomiting, Dissolve tab under tongue, # 10 tab, 0 Refill(s) Active 03/11/2017 [facility] Sulfamethoxazole 800 MG / Trimethoprim 160 MG Oral Tablet [Bactrim] 1 tab, PO, BID, X 10 day, # 20 tab, 0 Refill(s) Active 03/11/2017 [facility] Ketorolac 30 mg, Route: IVP, Drug form: INJ, ONCE, Dosing Weight 90.909, kg, Priority: STAT, Start date: 03/11/17 9:36:00 CDT, Stop date: 03/11/17 9:36:00 CDT Inactive 03/11/2017 [facility] Sodium Chloride 0.9% (Bolus) IV 1,000 mL, 2,000 ml/hr, Infuse Over: 30 minutes, Route: IV, ONCE, Priority: STAT, Dosing Weight 90.909 kg, Start date: 03/11/17 7:57:00 CDT, Duration: 1 doses or times, Stop date: 03/11/17 7:57:00 CDT Inactive 03/11/2017 [facility] Saline Flush 0.9% 10 mL, Route: IVP, Drug Form: INJ, Dosing Weight 90.909, kg, PRN, PRN Line Flush, Start date: 03/11/17 7:57:00 CDT, Duration: 30 day, Stop date: 04/10/17 6:56:00 CSTNotes: (Same as: BD Posiflush) Inactive 03/11/2017 [facility] Morphine 4 mg, Route: IVP, ONCE, Dosing Weight 90.909, kg, Priority: STAT, Start date: 03/11/17 7:57:00 CDT, Stop date: 03/11/17 7:57:00 CDT Inactive 03/11/2017 [facility] Ondansetron 4 mg, Route: IVP, ONCE, Dosing Weight 90.909, kg, Priority: STAT, Start date: 03/11/17 7:57:00 CDT, Stop date: 03/11/17 7:57:00 CDT Inactive 03/11/2017 [facility] magnesium citrate 58.2 MG/ML Oral Solution 8.725 my=948 ml, PO, ONCE, # 300 ml, 0 Refill(s) Active 01/13/2017 [facility] Dilaudid 1 mg, Route: IVP, ONCE, Dosing Weight 90.909, kg, Priority: STAT, Start date: 01/13/17 11:54:00 CDT, Stop date: 01/13/17 11:54:00 CDT Inactive 01/13/2017 [facility] Ondansetron 4 mg, Route: IVP, ONCE, Dosing Weight 90.909, kg, Priority: STAT, Start date: 01/13/17 8:28:00 CDT, Stop date: 01/13/17 8:28:00 CDT Inactive 01/13/2017 [facility] Morphine 4 mg, Route: IVP, ONCE, Dosing Weight 90.909, kg, Priority: STAT, Start date: 01/13/17 8:28:00 CDT, Stop date: 01/13/17 8:28:00 CDT Inactive 01/13/2017 [facility] Sodium Chloride 0.9% (Bolus) IV 1,000 mL, 2,000 ml/hr, Infuse Over: 30 minutes, Route: IV, ONCE, Priority: STAT, Dosing Weight 90.909 kg, Start date: 01/13/17 8:28:00 CDT, Duration: 1 doses or times, Stop date: 01/13/17 8:28:00 CDT Inactive 01/13/2017 [facility] Saline Flush 0.9% 10 mL, Route: IVP, Drug Form: INJ, Dosing Weight 90.909, kg, PRN, PRN Line Flush, Start date: 01/13/17 8:28:00 CDT, Duration: 30 day, Stop date: 02/12/17 8:27:00 CDTNotes: (Same as: Posiflush) Inactive 01/13/2017 [facility] Tamsulosin hydrochloride 0.4 MG Oral Capsule [Flomax] =1 tab, PO, Daily, # 10 tab, 0 Refill(s), Pharmacy: [facility]/pharmacy #[id number] Active 11/20/2016 [facility] Acetaminophen 300 MG / Codeine Phosphate 30 MG Oral Tablet [Tylenol with Codeine #3] 1 - 2 tab, PO, Q6H, PRN Pain, X 4 day, # 32 tab, 0 Refill(s) Active 11/20/2016 [facility] Ketorolac 30 mg, Route: IVP, Drug form: INJ, ONCE, Dosing Weight 81.818, kg, Priority: STAT, Start date: 11/20/16 10:43:00 CDT, Stop date: 11/20/16 10:43:00 CDT Inactive 11/20/2016 [facility] Hydromorphone 0.5 mg, Route: IVP, ONCE, Dosing Weight 81.818, kg, Priority: STAT, Start date: 11/20/16 9:42:00 CDT, Stop date: 11/20/16 9:42:00 CDT Inactive 11/20/2016 [facility] Promethazine 12.5 mg, Route: IVPB, ONCE, Dosing Weight 81.818, kg, Priority: STAT, Start date: 11/20/16 9:42:00 CDT, Stop date: 11/20/16 9:42:00 CDT Inactive 11/20/2016 [facility] Morphine 4 mg, Route: IVP, ONCE, Dosing Weight 81.818, kg, Priority: STAT, Start date: 11/20/16 8:52:00 CDT, Stop date: 11/20/16 8:52:00 CDT Inactive 11/20/2016 [facility] Sodium Chloride 0.154 MEQ/ML Injectable Solution 1,000 mL, 2,000 ml/hr, Infuse Over: 30 minutes, Route: IV, 1,000, Drug form: INJ, ONCE, Priority: STAT, Dosing Weight 81.818 kg, Start date: 11/20/16 7:55:00 CDT, Duration: 1 doses or times, Stop date: 11/20/16 7:55:00 CDT Inactive 11/20/2016 [facility] Saline Flush 0.9% 10 mL, Route: IVP, Drug Form: INJ, Dosing Weight 81.818, kg, PRN, PRN Line Flush, Start date: 11/20/16 7:55:00 CDT, Duration: 30 day, Stop date: 12/20/16 7:54:00 CDTNotes: (Same as: BD Posiflush) Inactive 11/20/2016 [facility] Morphine 4 mg, 1 mL, Route: IVP, Drug form: SOLN, ONCE, Dosing Weight 81.818, kg, Priority: STAT, Start date: 11/20/16 7:55:00 CDT, Stop date: 11/20/16 7:55:00 CDTNotes: (Same as:MORPhine Sulfate) Inactive 11/20/2016 [facility] Ondansetron 4 mg, 2 mL, Route: IVP, Drug form: INJ, ONCE, Dosing Weight 81.818, kg, Priority: STAT, Start date: 11/20/16 7:55:00 CDT, Stop date: 11/20/16 7:55:00 CDTNotes: (Same as: Zofran) MEDICATION WASTE * Product Size: 4 mg Product Wasted: ___ mg Inactive 11/20/2016 [facility] Cephalexin 500 MG Oral Capsule [Keflex] 500 mg=1 cap, PO, QID, X 10 day, # 40 cap, 0 Refill(s) Active 11/08/2016 [facility] Rocephin 1 gm, Route: IVPB, Drug form: PDR/INJ, ONCE, Dosing Weight 81.818, kg, Priority: STAT, Start date: 11/08/16 10:54:00 CDT, Stop date: 11/08/16 10:54:00 CDT, ABX Indication: Genital Tract Infection Inactive 11/08/2016 [facility] Morphine 4 mg, Route: IVP, ONCE, Dosing Weight 81.818, kg, Start date: 11/08/16 10:47:00 CDT, Stop date: 11/08/16 10:47:00 CDT Inactive 11/08/2016 [facility] Zofran 4 mg, Route: IVP, ONCE, Dosing Weight 81.818, kg, Start date: 11/08/16 8:56:00 CDT, Stop date: 11/08/16 8:56:00 CDT Inactive 11/08/2016 [facility] Sodium Chloride 0.154 MEQ/ML Injectable Solution 1,000 mL, 1,000 ml/hr, Infuse Over: 1 hr, Route: IV, ONCE, Priority: STAT, Dosing Weight 81.818 kg, Start date: 11/08/16 8:56:00 CDT, Duration: 1 doses or times, Stop date: 11/08/16 8:56:00 CDT Inactive 11/08/2016 [facility] Morphine 4 mg, Route: IVP, ONCE, Dosing Weight 81.818, kg, Start date: 11/08/16 8:56:00 CDT, Stop date: 11/08/16 8:56:00 CDT Inactive 11/08/2016 [facility] Saline Flush 0.9% 10 mL, Route: IVP, Drug Form: INJ, Dosing Weight 81.818, kg, PRN, PRN Line Flush, Start date: 11/08/16 8:56:00 CDT, Duration: 30 day, Stop date: 12/08/16 8:55:00 CDT Inactive 11/08/2016 [facility] Ketorolac 30 mg, Route: IVP, Drug form: INJ, ONCE, Dosing Weight 81.818, kg, Priority: STAT, Start date: 10/22/16 8:43:00 CDT, Stop date: 10/22/16 8:43:00 CDT Inactive 10/22/2016 [facility] Zofran 4 mg, Route: IVP, Drug form: INJ, ONCE, Dosing Weight 81.818, kg, Priority: STAT, Start date: 10/22/16 8:43:00 CDT, Stop date: 10/22/16 8:43:00 CDT Inactive 10/22/2016 [facility] Sodium Chloride 0.154 MEQ/ML Injectable Solution 1,000 mL, 1,000 ml/hr, Infuse Over: 1 hr, Route: IV, ONCE, Priority: STAT, Dosing Weight 81.818 kg, Start date: 10/22/16 8:43:00 CDT, Duration: 1 doses or times, Stop date: 10/22/16 8:43:00 CDT Inactive 10/22/2016 [facility] Ondansetron 4 MG Disintegrating Tablet [Zofran] 4 mg=1 tab, PO, BID, PRN Nausea and Vomiting, Dissolve tab under tongue, X 3 day, # 6 tab, 0 Refill(s) Active 10/14/2016 [facility] tramadol hydrochloride 50 MG Oral Tablet [Ultram] 100 mg=2 tab, PO, Q6H, PRN pain, X 3 day, # 24 tab, 0 Refill(s) Active 10/14/2016 [facility] Ciprofloxacin 500 MG Oral Tablet [Cipro] 500 mg=1 tab, PO, Q12H, X 7 day, # 14 tab, 0 Refill(s) Active 10/14/2016 [facility] Morphine 4 mg, Route: IVP, ONCE, Dosing Weight 81.818, kg, Priority: STAT, Start date: 10/14/16 9:09:00 CDT, Stop date: 10/14/16 9:09:00 CDT Inactive 10/14/2016 [facility] Morphine 4 mg, Route: IVP, ONCE, Dosing Weight 81.818, kg, Priority: STAT, Start date: 10/14/16 8:20:00 CDT, Stop date: 10/14/16 8:20:00 CDT Inactive 10/14/2016 [facility] Sodium Chloride 0.154 MEQ/ML Injectable Solution 1,000 mL, 1,000 ml/hr, Infuse Over: 1 hr, Route: IV, 1,000, Drug form: INJ, ONCE, Priority: STAT, Dosing Weight 81.818 kg, Start date: 10/14/16 7:44:00 CDT, Duration: 1 doses or times, Stop date: 10/14/16 7:44:00 CDT Inactive 10/14/2016 [facility] Zofran 4 mg, 2 mL, Route: IVP, Drug form: INJ, ONCE, Dosing Weight 81.818, kg, Priority: STAT, Start date: 10/14/16 7:44:00 CDT, Stop date: 10/14/16 7:44:00 CDTNotes: (Same as: Zofran) MEDICATION WASTE Product Size: 4 mg Product Wasted: ___ mg Inactive 10/14/2016 [facility] Cephalexin 500 MG Oral Capsule [Keflex] 500 mg=1 cap, PO, BID, X 10 day, # 20 cap, 0 Refill(s), Pharmacy: [facility] [id number] Active 06/12/2016 [facility] Ceftriaxone 1 gm, Route: IVPB, ONCE, Dosing Weight 81.818, kg, Priority: STAT, Start date: 06/12/16 8:56:00 ACQUISITIONS LOGISTICS ANALYST, Stop date: 06/12/16 8:56:00 CSTNotes: (Same As: Rocephin). Use with 100 mL NS and infuse over 30 min MEDICATION WASTE Product Size: 1000 mg Product Wasted: ___ mg Inactive 06/12/2016 [facility] Ondansetron 4 mg, 2 mL, Route: IVP, Drug form: INJ, ONCE, Dosing Weight 81.818, kg, Priority: STAT, Start date: 06/12/16 8:04:00 ACQUISITIONS LOGISTICS ANALYST, Stop date: 06/12/16 8:04:00 CSTNotes: (Same as: Zofran) MEDICATION WASTE * Product Size: 4 mg Product Wasted: ___ mg Inactive 06/12/2016 [facility] Sodium Chloride 0.154 MEQ/ML Injectable Solution 1,000 mL, 1000 ml/hr, Infuse Over: 1 hr, Route: IV, 1,000, Drug form: INJ, ONCE, Priority: STAT, Dosing Weight 81.818 kg, Start date: 06/12/16 8:04:00 ACQUISITIONS LOGISTICS ANALYST, Duration: 1 doses or times, Stop date: 06/12/16 8:04:00 ACQUISITIONS LOGISTICS ANALYST Inactive 06/12/2016 [facility] Hydromorphone 1 mg, 1 mL, Route: IVP, Drug form: INJ, ONCE, Dosing Weight 81.818, kg, Priority: STAT, Start date: 06/12/16 8:04:00 ACQUISITIONS LOGISTICS ANALYST, Stop date: 06/12/16 8:04:00 ACQUISITIONS LOGISTICS ANALYST Inactive 06/12/2016 [facility] Saline Flush 0.9% 10 mL, Route: IVP, Drug Form: INJ, Dosing Weight 81.818, kg, PRN, PRN Line Flush, Start date: 06/12/16 8:04:00 ACQUISITIONS LOGISTICS ANALYST, Duration: 30 day, Stop date: 07/12/16 8:03:00 CSTNotes: (Same as: BD Posiflush) Inactive 06/12/2016 [facility] Ketorolac 30 mg, 1 mL, Route: IVP, Drug form: INJ, ONCE, Dosing Weight 81.818, kg, Priority: STAT, Start date: 06/12/16 8:01:00 ACQUISITIONS LOGISTICS ANALYST, Stop date: 06/12/16 8:01:00 CSTNotes: (Same as:Toradol) IV bolus must be given > 15 seconds. Give IM administration slowly and deeply into the muscle. Not for use > 4 days MEDICATION WASTE Product Size: 30 mg Product Wasted: ___ mg Inactive 06/12/2016 [facility] Acetaminophen 300 MG / Codeine Phosphate 30 MG Oral Tablet [Tylenol with Codeine #3] 1 tab, PO, Q6H, PRN Pain Score 4-6, X 3 day, # 15 tab, 0 Refill(s) Active 06/11/2016 [facility] Ondansetron 4 MG Disintegrating Tablet [Zofran] 4 mg=1 tab, PO, BID, PRN Nausea and Vomiting, Dissolve tab under tongue, X 5 day, # 10 tab, 0 Refill(s) Active 06/11/2016 [facility] Ketorolac Tromethamine 10 MG Oral Tablet 10 mg=1 tab, PO, Q6H, X 5 day, # 20 tab, 0 Refill(s) Active 06/11/2016 [facility] Dilaudid 0.5 mg, Route: IV, ONCE, Dosing Weight 81.818, kg, Start date: 06/10/16 19:50:00 ACQUISITIONS LOGISTICS ANALYST, Stop date: 06/10/16 19:50:00 ACQUISITIONS LOGISTICS ANALYST Inactive 06/11/2016 [facility] Zofran 4 mg, 2 mL, Route: IVP, Drug form: INJ, ONCE, Dosing Weight 81.818, kg, Priority: STAT, Start date: 06/10/16 18:36:00 ACQUISITIONS LOGISTICS ANALYST, Stop date: 06/10/16 18:36:00 CSTNotes: (Same as: Zofran) MEDICATION WASTE Product Size: 4 mg Product Wasted: ___ mg Inactive 06/11/2016 [facility] Sodium Chloride 0.154 MEQ/ML Injectable Solution 1,000 mL, 1,000 ml/hr, Infuse Over: 1 hr, Route: IV, 1,000, Drug form: INJ, ONCE, Priority: STAT, Dosing Weight 81.818 kg, Start date: 06/10/16 18:35:00 ACQUISITIONS LOGISTICS ANALYST, Duration: 1 doses or times, Stop date: 06/10/16 18:35:00 ACQUISITIONS LOGISTICS ANALYST Inactive 06/11/2016 [facility] Ketorolac 30 mg, 1 mL, Route: IVP, Drug form: INJ, ONCE, Dosing Weight 81.818, kg, Priority: STAT, Start date: 06/10/16 18:35:00 ACQUISITIONS LOGISTICS ANALYST, Stop date: 06/10/16 18:35:00 CSTNotes: (Same as:Toradol) IV bolus must be given >15 seconds. Give IM administration slowly and deeply into the muscle. Not for use > 4 days MEDICATION WASTE Product Size: 30 mg Product Wasted: ___ mg Inactive 06/11/2016 [facility] Acetaminophen 300 MG / Codeine Phosphate 30 MG Oral Tablet [Tylenol with Codeine #3] 1 tab, PO, Q4H, PRN Pain, X 7 day, # 42 tab, 0 Refill(s) Active 02/13/2016 [facility] Docusate Sodium 100 MG Oral Capsule 100 mg, 1 cap, Route: PO, Drug form: CAP, BID, Dosing Weight 86.818, kg, Start date: 02/12/16 17:00:00 CDT, Duration: 30 day, Stop date: 03/13/16 9:00:00 CDTNotes: (Same as: Colace) (Do Not Crush) No Longer Active 02/12/2016 [facility] oxybutynin 5 mg, 1 tab, Route: PO, Drug form: TAB, TID, Dosing Weight 86.818, kg, PRN Bladder Spasm, Start date: 02/12/16 15:07:00 CDT, Duration: 30 day, Stop date: 03/13/16 15:06:00 CDTNotes: Same as: Ditropan) No Longer Active 02/12/2016 [facility] Zofran 4 mg, 2 mL, Route: IVP, Drug form: INJ, Q4H, Dosing Weight 86.818, kg, PRN Nausea, Start date: 02/12/16 14:13:00 CDT, Duration: 30 day, Stop date: 03/13/16 14:12:00 CDTNotes: (Same as: Zofran) MEDICATION WASTE Product Size: 4 mg Product Wasted: ___ mg No Longer Active 02/12/2016 [facility] Dilaudid 0.5 mg, 0.5 mL, Route: IVP, Drug form: INJ, Q4H, Dosing Weight 86.818, kg, PRN Pain Score 7-10, Start date: 02/12/16 14:12:00 CDT, Duration: 30 day, Stop date: 03/13/16 14:11:00 CDT No Longer Active 02/12/2016 [facility] Rocephin 1 gm, Route: IVPB, [id number], Dosing Weight 86.818, kg, Start date: 02/12/16 2:00:00 CDT, Duration: 30 day, Stop date: 03/12/16 2:00:00 CDTNotes: (Same As: Rocephin). Use with 100 mL NS and infuse over 30 min MEDICATION WASTE Product Size: 1000 mg Product Wasted: ___ mg No Longer Active 02/12/2016 [facility] Saline Flush 0.9% 10 ml, Route: IVP, Drug Form: INJ, Dosing Weight 81.818, kg, PRN, PRN Line Flush, Start date: 02/11/16 18:41:00 CDT, Duration: 30 day, Stop date: 03/12/16 18:40:00 CDTNotes: (Same as: BD Posiflush) No Longer Active 02/11/2016 [facility] Ondansetron 4 mg, 2 mL, Route: IVP, Drug form: INJ, Q6H, Dosing Weight 81.818, kg, PRN Nausea & Vomiting, Start date: 02/11/16 18:41:00 CDT, Duration: 30 day, Stop date: 03/12/16 18:40:00 CDTNotes: (Same as: Zofran) MEDICATION WASTE Product Size: 4 mg Product Wasted: ___ mg No Longer Active 02/11/2016 [facility] Morphine 2 mg, 1 mL, Route: IVP, Drug form: INJ, Q4H, Dosing Weight 81.818, kg, PRN Pain Score 7-10, Start date: 02/11/16 18:41:00 CDT, Duration: 30 day, Stop date: 03/12/16 18:40:00 CDTNotes: (Same as:MORPhine Sulfate) No Longer Active 02/11/2016 [facility] Acetaminophen 325 MG / Hydrocodone Bitartrate 5 MG Oral Tablet 2 tab, Route: PO, Drug Form: TAB, Dosing Weight 81.818, kg, Q4H, PRN Pain Score 7-10, Start date: 02/11/16 18:41:00 CDT, Duration: 30 day, Stop date: 03/12/16 18:40:00 CDTNotes: (Same as: [place] 325/5) Do not exceed 4gm/day of acetaminophen. No Longer Active 02/11/2016 [facility] Sodium Chloride 0.154 MEQ/ML Injectable Solution 1,000 mL, Rate: 125 ml/hr, Infuse over: 8 hr, Route: IV, Dosing Weight 81.818 kg, Total Volume: 1,000, Start date: 02/11/16 18:41:00 CDT, Duration: 30 day, Stop date: 03/12/16 18:40:00 CDT No Longer Active 02/11/2016 [facility] Sodium Chloride 0.154 MEQ/ML Injectable Solution 1,000 mL, 1,000 ml/hr, Infuse Over: 1 hr, Route: IV, ONCE, Priority: STAT, Dosing Weight 81.818 kg, Start date: 02/11/16 15:58:00 CDT, Duration: 1 doses or times, Stop date: 02/11/16 15:58:00 CDT Inactive 02/11/2016 [facility] Dilaudid 0.5 mg, Route: IVP, ONCE, Dosing Weight 81.818, kg, Priority: STAT, Start date: 02/11/16 15:53:00 CDT, Stop date: 02/11/16 15:53:00 CDT Inactive 02/11/2016 [facility] Dilaudid 0.5 mg, Route: IVP, ONCE, Dosing Weight 81.818, kg, Priority: STAT, Start date: 02/11/16 13:20:00 CDT, Stop date: 02/11/16 13:20:00 CDT Inactive 02/11/2016 [facility] Acetaminophen 325 MG / Hydrocodone Bitartrate 10 MG Oral Tablet [[place]oughton 10/325] 1 tab, Route: PO, Drug Form: TAB, Dosing Weight 81.818, kg, ONCE, STAT, Start date: 02/11/16 11:50:00 CDT, Stop date: 02/11/16 11:50:00 CDT Inactive 02/11/2016 [facility] Pyridium 200 mg, Route: PO, ONCE, Dosing Weight 81.818, kg, Priority: STAT, Start date: 02/11/16 10:09:00 CDT, Stop date: 02/11/16 10:09:00 CDT Inactive 02/11/2016 [facility] Dilaudid 1 mg, Route: IV, ONCE, Dosing Weight 81.818, kg, Start date: 02/11/16 9:50:00 CDT, Stop date: 02/11/16 9:50:00 CDT Inactive 02/11/2016 [facility] Zofran 4 mg, Route: IVP, Drug form: INJ, ONCE, Dosing Weight 81.818, kg, Priority: STAT, Start date: 02/11/16 9:50:00 CDT, Stop date: 02/11/16 9:50:00 CDT Inactive 02/11/2016 [facility] Sodium Chloride 0.154 MEQ/ML Injectable Solution 1,000 mL, 1,000 ml/hr, Infuse Over: 1 hr, Route: IV, ONCE, Priority: STAT, Dosing Weight 81.818 kg, Start date: 02/11/16 8:49:00 CDT, Duration: 1 doses or times, Stop date: 02/11/16 8:49:00 CDT Inactive 02/11/2016 [facility] Zofran 4 mg, Route: IVP, Drug form: INJ, ONCE, Dosing Weight 81.818, kg, Priority: STAT, Start date: 02/11/16 8:49:00 CDT, Stop date: 02/11/16 8:49:00 CDT Inactive 02/11/2016 [facility] Morphine 4 mg, Route: IVP, ONCE, Dosing Weight 81.818, kg, Priority: STAT, Start date: 02/11/16 8:49:00 CDT, Stop date: 02/11/16 8:49:00 CDT Inactive 02/11/2016 [facility] Dilaudid 0.5 mg, Route: IVP, ONCE, Dosing Weight 81.818, kg, Priority: STAT, Start date: 02/01/16 14:04:00 CDT, Stop date: 02/01/16 14:04:00 CDT Inactive 02/01/2016 [facility] Ketorolac 15 mg, Route: IVP, Drug form: INJ, ONCE, Dosing Weight 81.818, kg, Priority: STAT, Start date: 02/01/16 13:13:00 CDT, Stop date: 02/01/16 13:13:00 CDT Inactive 02/01/2016 [facility] Dilaudid 1 mg, Route: IVP, ONCE, Dosing Weight 81.818, kg, Priority: STAT, Start date: 02/01/16 13:12:00 CDT, Stop date: 02/01/16 13:12:00 CDT Inactive 02/01/2016 [facility] Zofran 4 mg, Route: IVP, Drug form: INJ, ONCE, Dosing Weight 81.818, kg, Priority: STAT, Start date: 02/01/16 12:17:00 CDT, Stop date: 02/01/16 12:17:00 CDT Inactive 02/01/2016 [facility] Morphine 4 mg, Route: IVP, ONCE, Dosing Weight 81.818, kg, Priority: STAT, Start date: 02/01/16 12:17:00 CDT, Stop date: 02/01/16 12:17:00 CDT Inactive 02/01/2016 [facility] Sodium Chloride 0.154 MEQ/ML Injectable Solution 1,000 mL, 1,000 ml/hr, Infuse Over: 1 Hour, Route: IV, ONCE, Priority: STAT, Dosing Weight 81.818 kg, Start date: 02/01/16 12:17:00 CDT, Duration: 1 doses or times, Stop date: 02/01/16 12:17:00 CDT Inactive 02/01/2016 [facility] Saline Flush 0.9% 10 mL, Route: IVP, Drug Form: INJ, Dosing Weight 81.818, kg, PRN, PRN Line Flush, Start date: 02/01/16 11:33:00 CDT, Duration: 30 day, Stop date: 03/02/16 11:32:00 CDTNotes: (Same as: BD Posiflush) Inactive 02/01/2016 [facility] Tums 1,250 mg, 2.5 tab, Route: PO, Drug form: TAB, TID, Dosing Weight 90.17, kg, Start date: 01/27/16 13:00:00 CDT, Duration: 30 day, Stop date: 02/26/16 9:00:00 CDTNotes: 500mg elemental [id number] calcium carbonate. Contains 500mg elemental calcium. (Same As: OsCal 500) Inactive 01/27/2016 [facility] Golytely 4,000 ml, Route: PO, Drug Form: PDR/REC, Dosing Weight 90.17, kg, ONCE, Start date: 01/27/16 12:00:00 CDT, Duration: 1 doses or times, Stop date: 01/27/16 12:00:00 CDTNotes: (polyethylene glycol electrolyte solution 4 Liter bottle) (Same as: Golytely, Colyte) Inactive 01/27/2016 [facility] Docusate Sodium 100 MG Oral Capsule 100 mg=1 cap, PO, BID, # 60 cap, 0 Refill(s) Active 01/27/2016 [facility] oxybutynin 5 mg oral tablet 5 mg=1 tab, PO, TID, PRN Bladder Spasm, # 30 tab, 0 Refill(s) Active 01/27/2016 [facility] Ciprofloxacin 500 MG Oral Tablet [Cipro] 500 mg=1 tab, PO, Q12H, X 7 day, # 14 tab, 0 Refill(s) Active 01/27/2016 [facility] Pyridium 200 mg, 2 tab, Route: PO, Drug form: TAB, TID- After Meals, Dosing Weight 90.17, kg, Start date: 01/27/16 8:30:00 CDT, Duration: 2 day, Stop date: 01/28/16 17:30:00 CDTNotes: Give with meals. (Same as: Pyridium) Inactive 01/27/2016 [facility] Naloxone 0.4 mg, Route: IVP, Q2MIN, Dosing Weight 90.17, kg, PRN Narcotic Reversal, Start date: 01/26/16 19:14:00 CDT, Duration: 8 doses or times, Stop date: Limited # of times Inactive 01/27/2016 [facility] Flumazenil 0.2 mg, Route: IVP, PRN, Dosing Weight 90.17, kg, PRN Benzodiazepine Reversal, Initial dose, Start date: 01/26/16 19:14:00 CDT, Duration: 30 day, Stop date: 02/25/16 19:13:00 CDT Inactive 01/27/2016 [facility] Acetaminophen 1,000 mg, Route: PO, Drug form: TAB, ONCE, Dosing Weight 90.17, kg, PRN Pain Score 1-3, Start date: 01/26/16 19:14:00 CDT, Duration: 1 doses or times, Stop date: Limited # of times Inactive 01/27/2016 [facility] Ondansetron 4 mg, Route: IVP, ONCE, Dosing Weight 90.17, kg, PRN Nausea & Vomiting, Start date: 01/26/16 19:14:00 CDT Inactive 01/27/2016 [facility] Promethazine 6.25 mg, Route: IVPB, ONCE, Dosing Weight 90.17, kg, PRN Nausea & Vomiting, Start date: 01/26/16 19:14:00 CDT Inactive 01/27/2016 [facility] Fentanyl 25 microgram, Route: IVP, Q5Min, Dosing Weight 90.17, kg, PRN Pain Score 4-6, Start date: 01/26/16 19:14:00 CDT, Duration: 4 doses or times, Stop date: Limited # of times Inactive 01/27/2016 [facility] Hydromorphone 0.5 mg, Route: IVP, Q5Min, Dosing Weight 90.17, kg, PRN Pain Score 7-10, Start date: 01/26/16 19:14:00 CDT, Duration: 4 doses or times, Stop date: Limited # of times Inactive 01/27/2016 [facility] ondansetron (ANES) Route: IV, Drug form: INJ, ONCE, Stop date: 01/26/16 19:07:00 CDT Inactive 01/27/2016 [facility] ciprofloxacin (ANES) Route: IV, Drug form: INJ, ONCE, Stop date: 01/26/16 19:07:00 CDT Inactive 01/27/2016 [facility] fentaNYL (ANES) Route: IV, Drug form: INJ, ONCE, Stop date: 01/26/16 19:07:00 CDT Inactive 01/27/2016 [facility] lidocaine (ANES) Route: IV, Drug form: INJ, ONCE, Stop date: 01/26/16 19:07:00 CDT Inactive 01/27/2016 [facility] propofol (ANES) Route: IV, Drug form: INJ, ONCE, Stop date: 01/26/16 19:07:00 CDT Inactive 01/27/2016 [facility] Ditropan 5 mg, 1 tab, Route: PO, Drug form: TAB, TID, Dosing Weight 90.17, kg, PRN Bladder Spasm, Start date: 01/26/16 18:51:00 CDT, Duration: 30 day, Stop date: 02/25/16 18:50:00 CDTNotes: Same as: Ditropan) No Longer Active 01/26/2016 [facility] LR 1000 mL INJ (ANES) Route: IV, Total Volume: 1,000, Start date: 01/26/16 18:16:00 CDT, Stop date: 01/26/16 19:16:00 CDT Inactive 01/26/2016 [facility] Hydromorphone 1 mg, 1 mL, Route: IVP, Drug form: INJ, Q4H, Dosing Weight 90.17, kg, PRN Pain Score 7-10, Start date: 01/26/16 1:25:00 CDT, Duration: 30 day, Stop date: 02/25/16 1:24:00 CDT No Longer Active 01/26/2016 [facility] Ceftriaxone 1 gm, Route: IVPB, Q24H, Dosing Weight 81.818, kg, Priority: STAT, Start date: 01/26/16 0:05:00 CDT, Duration: 30 day, Stop date: 02/23/16 22:00:00 CDTNotes: (Same As: Rocephin). Use with 100 mL NS and infuse over 30 min MEDICATION WASTE Product Size: 1000 mg Product Wasted: ___ mg No Longer Active 01/26/2016 [facility] Docusate 100 mg, 1 cap, Route: PO, Drug form: CAP, BID, Dosing Weight 81.818, kg, PRN Constipation, Start date: 01/26/16 0:05:00 CDT, Duration: 30 day, Stop date: 02/25/16 0:04:00 CDTNotes: (Same as: Colace) (Do Not Crush) No Longer Active 01/26/2016 [facility] Ondansetron 4 mg, 2 mL, Route: IVP, Drug form: INJ, Q6H, Dosing Weight 81.818, kg, PRN Nausea & Vomiting, Start date: 01/26/16 0:05:00 CDT, Duration: 30 day, Stop date: 02/25/16 0:04:00 CDTNotes: (Same as: Zofran) MEDICATION WASTE Product Size: 4 mg Product Wasted: ___ mg No Longer Active 01/26/2016 [facility] Acetaminophen 650 mg, 2 tab, Route: PO, Drug form: TAB, Q4H, Dosing Weight 81.818, kg, PRN Pain 1-3/Temp > 100.4 F, Start date: 01/26/16 0:05:00 CDT, Duration: 30 day, Stop date: 02/25/16 0:04:00 CDTNotes: Do not exceed 4 gm/day. (Same as: Tylenol) No Longer Active 01/26/2016 [facility] Morphine 4 mg, 2 mL, Route: IVP, Drug form: INJ, Q4H, Dosing Weight 81.818, kg, PRN Pain Score 7-10, Start date: 01/26/16 0:05:00 CDT, Duration: 30 day, Stop date: 02/25/16 0:04:00 CDTNotes: (Same as:MORPhine Sulfate) Inactive 01/26/2016 [facility] Sodium Chloride 0.154 MEQ/ML Injectable Solution 1,000 mL, Rate: 150 ml/hr, Infuse over: 6.7 hr, Route: IV, Dosing Weight 81.818 kg, Total Volume: 1,000, Start date: 01/26/16 0:05:00 CDT, Stop date: 02/25/16 0:04:00 CDT No Longer Active 01/26/2016 [facility] Rocephin 1 gm, Route: IVPB, ONCE, Dosing Weight 81.818, kg, Priority: STAT, Start date: 01/25/16 21:36:00 CDT, Stop date: 01/25/16 21:36:00 CDTNotes: (Same As: Rocephin). Use with 100 mL NS and infuse over 30 m in MEDICATION WASTE Product Size: 1000 mg Product Wasted: ___ mg Inactive 01/26/2016 [facility] Sodium Chloride 0.154 MEQ/ML Injectable Solution 1,000 mL, 1,000 ml/hr, Infuse Over: 1 hr, Route: IV, 1,000, Drug form: INJ, ONCE, Priority: STAT, Dosing Weight 81.818 kg, Start date: 01/25/16 19:39:00 CDT, Duration: 1 doses or times, Stop date: 01/25/16 19:39:00 CDT Inactive 01/26/2016 [facility] Zofran 4 mg, 2 mL, Route: IVP, Drug form: INJ, ONCE, Dosing Weight 81.818, kg, Priority: STAT, Start date: 01/25/16 19:39:00 CDT, Stop date: 01/25/16 19:39:00 CDTNotes: (Same as: Zofran) MEDICATION WASTE Product Size: 4 mg Product Wasted: ___ mg Inactive 01/26/2016 [facility] Morphine 4 mg, 2 mL, Route: IVP, Drug form: INJ, ONCE, Dosing Weight 81.818, kg, Start date: 01/25/16 19:39:00 CDT, Stop date: 01/25/16 19:39:00 CDTNotes: (Same as:MORPhine Sulfate) Inactive 01/26/2016 [facility] ketOROLAC 30 mg/mL injectable solution 30 mg, 1 mL, Route: IV, Drug form: INJ, ONCE, Dosing Weight 81.818, kg, Start date: 01/25/16 18:45:00 CDT, Stop date: 01/25/16 18:45:00 CDTNotes: (Same as:Toradol) IV bolus must be given >15 seconds. Give IM administration slowly and deeply into the muscle. Not for use > 4 days MEDICATION WASTE Product Size: 30 mg Product Wasted: ___ mg Inactive 01/25/2016 [facility] tamsulosin 0.4 mg oral capsule 0.4 mg=1 cap, PO, Daily, # 30 cap, 0 Refill(s) Active 11/06/2015 [facility] Acetaminophen 300 MG / Codeine Phosphate 30 MG Oral Tablet [Tylenol with Codeine #3] 1 - 2 tab, PO, Q6H, PRN Pain, X 4 day, # 32 tab, 0 Refill(s) Active 11/06/2015 [facility] Ciprofloxacin 500 MG Oral Tablet [Cipro] 500 mg=1 tab, PO, Q12H, X 10 day, # 20 tab, 0 Refill(s) Active 11/06/2015 [facility] Maalox Advanced Regular Strength SUSP 30 mL, Route: PO, Drug Form: SUSP, Dosing Weight 81.818, kg, QID, PRN Heartburn, Start date: 11/05/15 17:19:00 CDT, Duration: 30 day, Stop date: 12/05/15 17:18:00 CDTNotes: (aluminum hydroxide-magnesium hyd-simethicone [id number]/5ml 30 ml ud MIKE) No Longer Active 11/05/2015 [facility] Levaquin 500 mg, 100 mL, Route: IVPB, Drug form: SOLN, [id number], Dosing Weight 81.818, kg, Start date: 11/05/15 15:00:00 CDT, Duration: 30 day, Stop date: 12/04/15 15:00:00 CDTNotes: (Same as:Levaquin) No Longer Active 11/05/2015 [facility] Acetaminophen 325 MG / Hydrocodone Bitartrate 10 MG Oral Tablet [Houghton 10/325] 1 tab, Route: PO, Drug Form: TAB, Dosing Weight 81.818, kg, Q6H, PRN Pain Score 4-6, Start date: 11/05/15 14:24:00 CDT, Duration: 30 day, Stop date: 12/05/15 14:23:00 CDTNotes: Do not exceed 4gm/day of acetaminophen. (Same as: Houghton 325/10) No Longer Active 11/05/2015 [facility] tamsulosin 0.4 mg, 1 cap, Route: PO, Drug form: CAP, Daily, Dosing Weight 81.818, kg, Start date: 11/05/15 9:00:00 CDT, Duration: 30 day, Stop date: 12/04/15 9:00:00 CDTNotes: (Same As: Flomax) "Do Not Crush" No Longer Active 11/05/2015 [facility] Acetaminophen 650 mg, 20.3 mL, Route: PO, Drug form: LIQ, Q4H, Dosing Weight 81.818, kg, PRN For Temp > 100.4 F, Start date: 11/05/15 8:53:00 CDT, Duration: 30 day, Stop date: 12/05/15 8:52:00 CDT No Longer Active 11/05/2015 [facility] Morphine 3 mg, 1.5 mL, Route: IV, Drug form: INJ, Q3H, Dosing Weight 81.818, kg, PRN Pain Score 6-10, Start date: 11/04/15 17:45:00 CDT, Duration: 30 day, Stop date: 12/04/15 17:44:00 CDTNotes: (Same as:MORPhine Sulfate) No Longer Active 11/04/2015 [facility] atropine 0.5 mg, 5 mL, Route: IVP, Drug form: INJ, PRN, PRN Bradycardia, Start date: 11/04/15 15:05:00 CDT, Duration: 30 day, Stop date: 12/04/15 15:04:00 CDT No Longer Active 11/04/2015 [facility] Saline Flush 0.9% 10 ml, Route: IVP, Drug Form: INJ, Dosing Weight 81.818, kg, PRN, PRN Line Flush, Start date: 11/04/15 14:07:00 CDT, Duration: 30 day, Stop date: 12/04/15 14:06:00 CDTNotes: (Same as: BD Posiflush) No Longer Active 11/04/2015 [facility] Sodium Chloride 0.154 MEQ/ML Injectable Solution 1,000 mL, Rate: 125 ml/hr, Infuse over: 8 hr, Route: IV, Dosing Weight 81.818 kg, Total Volume: 1,000, Start date: 11/04/15 14:07:00 CDT, Duration: 30 day, Stop date: 12/04/15 14:06:00 CDT No Longer Active 11/04/2015 [facility] Ondansetron 4 mg, 2 mL, Route: IVP, Drug form: INJ, Q6H, Dosing Weight 81.818, kg, PRN Nausea & Vomiting, Start date: 11/04/15 14:07:00 CDT, Duration: 30 day, Stop date: 12/04/15 14:06:00 CDTNotes: (Same as: Kimber) MEDICATION WASTE Product Size: 4 mg Product Wasted: ___ mg No Longer Active 11/04/2015 [facility] Morphine 2 mg, 1 mL, Route: IVP, Drug form: INJ, Q4H, Dosing Weight 81.818, kg, PRN Pain Score 7-10, Start date: 11/04/15 14:07:00 CDT, Duration: 30 day, Stop date: 12/04/15 14:06:00 CDTNotes: (Same as:MORPhine Sulfate) Inactive 11/04/2015 [facility] Dilaudid 0.5 mg, 0.5 mL, Route: IVP, Drug form: INJ, Q4H, Dosing Weight 81.818, kg, PRN Pain Score 7-10, Priority: STAT, Start date: 11/04/15 13:59:00 CDT, Duration: 30 day, Stop date: 12/04/15 13:58:00 CDT Inactive 11/04/2015 [facility] NS 1,000 mL 1,000 mL, Rate: 175 ml/hr, Infuse over: 5.7 hr, Route: IV, Dosing Weight 81.818 kg, Total Volume: 1,000, Start date: 11/04/15 13:57:00 CDT, Duration: 30 day, Stop date: 12/04/15 13:56:00 CDT No Longer Active 11/04/2015 [facility] Levaquin 750 mg, 150 mL, Route: IVPB, Drug form: SOLN, ONCE, Dosing Weight 81.818, kg, Start date: 11/04/15 13:57:00 CDT, Stop date: 11/04/15 13:57:00 CDTNotes: (Same as:Levaquin) Inactive 11/04/2015 [facility] Gentamicin Sulfate ([facility]) 80 mg, 100 mL, Route: IVPB, Drug form: INJ, ONCE, Dosing Weight 81.818, kg, Priority: STAT, Start date: 11/04/15 13:56:00 CDT, Stop date: 11/04/15 13:56:00 CDTNotes: TIME CRITICAL MEDICATION (Same as Garamycin) Inactive 11/04/2015 [facility] Dilaudid 1 mg, Route: IVP, ONCE, Dosing Weight 81.818, kg, Priority: STAT, Start date: 11/04/15 13:30:00 CDT, Stop date: 11/04/15 13:30:00 CDT Inactive 11/04/2015 [facility] Dilaudid 0.5 mg, Route: IVP, ONCE, Dosing Weight 81.818, kg, Priority: STAT, Start date: 11/04/15 13:01:00 CDT, Stop date: 11/04/15 13:01:00 CDT Inactive 11/04/2015 [facility] Dilaudid 0.5 mg, 0.5 mL, Route: IVP, Drug form: INJ, ONCE, Dosing Weight 81.818, kg, Priority: STAT, Start date: 11/04/15 11:56:00 CDT, Stop date: 11/04/15 11:56:00 CDT Inactive 11/04/2015 [facility] Sodium Chloride 0.154 MEQ/ML Injectable Solution 1,000 mL, 1,000 ml/hr, Infuse Over: 1 hr, Route: IV, 1,000, Drug form: INJ, ONCE, Priority: STAT, Dosing Weight 81.818 kg, Start date: 11/04/15 11:15:00 CDT, Duration: 1 doses or times, Stop date: 11/04/15 11:15:00 CDT Inactive 11/04/2015 [facility] Ondansetron 4 mg, Route: IVP, ONCE, Dosing Weight 81.818, kg, Priority: STAT, Start date: 11/04/15 11:10:00 CDT, Stop date: 11/04/15 11:10:00 CDT Inactive 11/04/2015 [facility] Morphine 4 mg, Route: IVP, ONCE, Dosing Weight 81.818, kg, Priority: STAT, Start date: 11/04/15 11:10:00 CDT, Stop date: 11/04/15 11:10:00 CDT Inactive 11/04/2015 [facility] Sodium Chloride 0.154 MEQ/ML Injectable Solution 1,000 mL, Rate: 125 ml/hr, Infuse over: 8 hr, Route: IV, Dosing Weight 81.818 kg, Total Volume: 1,000, Priority: STAT, Start date: 11/04/15 11:10:00 CDT, Duration: 1 doses or times, Stop date: 11/04/15 19:09:00 CDT Inactive 11/04/2015 [facility] Saline Flush 0.9% 10 mL, Route: IVP, Drug Form: INJ, Dosing Weight 81.818, kg, PRN, PRN Line Flush, Start date: 11/04/15 11:10:00 CDT, Duration: 30 day, Stop date: 12/04/15 11:09:00 CDTNotes: (Same as: BD Posiflush) Inactive 11/04/2015 [facility] Atropine Sulfate 0.025 MG / Diphenoxylate Hydrochloride 2.5 MG Oral Tablet [Lomotil] 2 tab, Route: PO, Drug Form: TAB, Dosing Weight 81.818, kg, QID, Start date: 08/10/15 9:00:00, Duration: 30 day, Stop date: 09/08/15 21:00:00Notes: (Same As: Lomotil) MAX Adult dose=8 tabs/day Inactive 08/10/2015 [facility] Acetaminophen 325 MG / Hydrocodone Bitartrate 10 MG Oral Tablet [Houghton 10/325] 1 tab, Route: PO, Drug Form: TAB, Dosing Weight 81.818, kg, ONCE, STAT, Start date: 08/10/15 1:17:00, Stop date: 08/10/15 1:17:00Notes: Do not exceed 4gm/day of acetaminophen. (Same as: Houghton 325/10) Inactive 08/10/2015 [facility] Cyclobenzaprine hydrochloride 10 MG Oral Tablet [Flexeril] 10 mg, PO, TID, PRN Muscle Spasm, X 10 day, # 30 tab, 0 Refill(s) Active 08/10/2015 [facility] Atropine Sulfate 0.025 MG / Diphenoxylate Hydrochloride 2.5 MG Oral Tablet [Lomotil] 2 tab, PO, QID, PRN for loose stool, X 7 day, # 24 tab, 0 Refill(s) Active 08/10/2015 [facility] Acetaminophen 300 MG / Codeine Phosphate 30 MG Oral Tablet [Tylenol with Codeine #3] 1 - 2 tab, PO, Q4H, PRN Pain, X 4 day, # 36 tab, 0 Refill(s) Active 08/10/2015 [facility] Cyclobenzaprine hydrochloride 10 MG Oral Tablet [Flexeril] 10 mg, PO, TID, PRN Muscle Spasm, X 10 day, # 30 tab, 0 Refill(s) Active 08/10/2015 [facility] Promethazine Hydrochloride 25 MG Oral Tablet [Phenergan] 25 mg=1 tab, PO, Q4H, PRN Nausea, X 3 day, # 30 tab, 0 Refill(s) Active 08/10/2015 [facility] Zofran 4 mg, 2 mL, Route: IVP, Drug form: INJ, ONCE, Dosing Weight 81.818, kg, Priority: STAT, Start date: 08/10/15 0:29:00, Stop date: 08/10/15 0:29:00Notes: (Same as: Zofran) MEDICATION WASTE Product Size: 4 mg Product Wasted: ___ mg Inactive 08/10/2015 [facility] Ketorolac 30 mg, 1 mL, Route: IVP, Drug form: INJ, ONCE, Dosing Weight 81.818, kg, Priority: STAT, Start date: 08/10/15 0:29:00, Stop date: 08/10/15 0:29:00Notes: (Same as:Toradol) IV bolus must be given >15 seconds. Give IM administration slowly and deeply into the muscle. Not for use > 4 days MEDICATION WASTE Product Size: 30 mg Product Wasted: ___ mg Inactive 08/10/2015 [facility] Saline Flush 0.9% 10 mL, Route: IVP, Drug Form: INJ, Dosing Weight 81.818, kg, PRN, PRN Line Flush, Start date: 08/09/15 18:13:00, Duration: 30 day, Stop date: 09/08/15 19:12:00Notes: (Same as: BD Posiflush) No Longer Active 08/10/2015 [facility] Cyclobenzaprine hydrochloride 10 MG Oral Tablet [Flexeril] 10 mg, PO, TID, PRN Muscle Spasm, X 10 day, # 30 tab, 0 Refill(s) Active 08/08/2015 [facility] Ondansetron 4 MG Disintegrating Tablet [Zofran] 4 mg=1 tab, PO, Q8H, PRN Nausea and Vomiting, Dissolve tab under tongue, X 5 day, # 15 tab, 0 Refill(s) Active 08/08/2015 [facility] Acetaminophen 300 MG / Codeine Phosphate 30 MG Oral Tablet [Tylenol with Codeine #3] 1 - 2 tab, PO, Q4H, PRN Pain, X 2 day, # 20 tab, 0 Refill(s) No Longer Active 08/08/2015 [facility] Morphine 4 mg, Route: IVP, Drug form: INJ, ONCE, Dosing Weight 81.818, kg, Priority: STAT, Start date: 08/08/15 2:45:00, Stop date: 08/08/15 2:45:00 Inactive 08/08/2015 [facility] Zofran 4 mg, Route: IVP, Drug form: INJ, ONCE, Dosing Weight 81.818, kg, Priority: STAT, Start date: 08/08/15 0:55:00, Stop date: 08/08/15 0:55:00 Inactive 08/08/2015 [facility] Morphine 4 mg, Route: IVP, Drug form: INJ, ONCE, Dosing Weight 81.818, kg, Priority: STAT, Start date: 08/08/15 0:55:00, Stop date: 08/08/15 0:55:00 Inactive 08/08/2015 [facility] Morphine 4 mg, 2 mL, Route: IVP, Drug form: INJ, ONCE, Dosing Weight 81.818, kg, Priority: STAT, Start date: 08/07/15 19:55:00, Stop date: 08/07/15 19:55:00Notes: (Same as:MORPhine Sulfate) Inactive 08/08/2015 [facility] Ondansetron 4 mg, 2 mL, Route: IVP, Drug form: INJ, ONCE, Dosing Weight 81.818, kg, Priority: STAT, Start date: 08/07/15 19:55:00, Stop date: 08/07/15 19:55:00Notes: (Same as: Zofran) MEDICATION WASTE Product Size: 4 mg Product Wasted: ___ mg Inactive 08/08/2015 [facility] Sodium Chloride 0.154 MEQ/ML Injectable Solution 1,000 mL, 1000 ml/hr, Infuse Over: 1 hr, Route: IV, 1,000, Drug form: INJ, ONCE, Priority: STAT, Dosing Weight 81.818 kg, Start date: 08/07/15 19:55:00, Duration: 1 doses or times, Stop date: 08/07/15 19:55:00 Inactive 08/08/2015 [facility] Saline Flush 0.9% 10 mL, Route: IVP, Drug Form: INJ, Dosing Weight 81.818, kg, PRN, PRN Line Flush, Start date: 08/07/15 19:55:00, Duration: 30 day, Stop date: 09/06/15 20:54:00Notes: (Same as: BD Posiflush) No Longer Active 08/08/2015 [facility] Ketorolac 30 mg, Route: IVP, Drug form: INJ, ONCE, Dosing Weight 81.818, kg, Priority: STAT, Start date: 05/11/15 9:44:00, Stop date: 05/11/15 9:44:00 Inactive 05/11/2015 [facility] Acetaminophen 325 MG / Hydrocodone Bitartrate 5 MG Oral Tablet [Houghton 5/325] 1 tab, Route: PO, Drug Form: TAB, Dosing Weight 81.818, kg, ONCE, STAT, Start date: 05/11/15 9:14:00, Stop date: 05/11/15 9:14:00 Inactive 05/11/2015 [facility] Morphine 4 mg, Route: IVP, ONCE, Dosing Weight 81.818, kg, Start date: 05/11/15 8:02:00, Stop date: 05/11/15 8:02:00 Inactive 05/11/2015 [facility] Zofran 4 mg, Route: IVP, ONCE, Dosing Weight 81.818, kg, Start date: 05/11/15 8:02:00, Stop date: 05/11/15 8:02:00 Inactive 05/11/2015 [facility] Acetaminophen 325 MG / Hydrocodone Bitartrate 7.5 MG Oral Tablet [Houghton 7.5/325] 1 tab, Route: PO, Dosing Weight 81.818, kg, ONCE, Start date: 05/11/15 7:58:00, Stop date: 05/11/15 7:58:00 Inactive 05/11/2015 [facility] Ondansetron 4 MG Disintegrating Tablet [Zofran] 4 mg=1 tab, PO, BID, PRN Nausea and Vomiting, Dissolve tab under tongue, X 3 day, # 6 tab, 0 Refill(s) Active 05/09/2015 [facility] Acetaminophen 300 MG / Codeine Phosphate 30 MG Oral Tablet [Tylenol with Codeine #3] isalm,n, PO, Q4H, PRN Pain, X 5 day, # 15 tab, 0 Refill(s) Active 05/09/2015 [facility] Naproxen 500 MG Oral Tablet [Naprosyn] 500 mg=1 tab, PO, BID, PRN Pain, # 28 tab, 0 Refill(s) Active 05/09/2015 [facility] Ketorolac 30 mg, 1 mL, Route: IVP, Drug form: INJ, ONCE, Dosing Weight 81.818, kg, Priority: STAT, Start date: 05/09/15 9:44:00, Stop date: 05/09/15 9:44:00Notes: (Same as:Toradol) IV bolus must be given >15 seconds. Give IM administration slowly and deeply into the muscle. Not for use > 4 days MEDICATION WASTE Product Size: 30 mg Product Wasted: ___ mg Inactive 05/09/2015 [facility] Morphine 4 mg, Route: IVP, Drug form: INJ, ONCE, Dosing Weight 81.818, kg, Priority: STAT, Start date: 05/09/15 8:40:00, Stop date: 05/09/15 8:40:00 Inactive 05/09/2015 [facility] Morphine 4 mg, Route: IVP, ONCE, Dosing Weight 81.818, kg, Start date: 05/09/15 7:40:00, Stop date: 05/09/15 7:40:00 Inactive 05/09/2015 [facility] Zofran 4 mg, Route: IVP, Drug form: INJ, ONCE, Dosing Weight 81.818, kg, Priority: STAT, Start date: 05/09/15 7:40:00, Stop date: 05/09/15 7:40:00 Inactive 05/09/2015 [facility] Sodium Chloride 0.154 MEQ/ML Injectable Solution 1,000 mL, 1,000 ml/hr, Infuse Over: 1 hr, Route: IV, ONCE, Priority: STAT, Dosing Weight 81.818 kg, Start date: 05/09/15 7:40:00, Duration: 1 doses or times, Stop date: 05/09/15 7:40:00 Inactive 05/09/2015 [facility] tramadol hydrochloride 50 MG Oral Tablet [Ultram] 50 mg=1 tab, PO, Q4H, PRN pain, X 5 day, # 30 tab, 0 Refill(s) Active 05/02/2015 [facility] Ciprofloxacin 500 MG Oral Tablet [Cipro] 500 mg=1 tab, PO, Q12H, X 7 day, # 14 tab, 0 Refill(s), Pharmacy: [facility] [id number] Active 05/02/2015 [facility] Ketorolac Tromethamine 10 MG Oral Tablet 10 mg=1 tab, PO, Q6H, X 5 day, # 20 tab, 0 Refill(s), Pharmacy: [facility] [id number] Active 05/02/2015 [facility] Dilaudid 0.5 mg, Route: IV, ONCE, Dosing Weight 81.818, kg, Start date: 05/02/15 8:42:00, Stop date: 05/02/15 8:42:00 Inactive 05/02/2015 [facility] Zofran 4 mg, Route: IVP, Drug form: INJ, ONCE, Dosing Weight 81.818, kg, Priority: STAT, Start date: 05/02/15 7:33:00, Stop date: 05/02/15 7:33:00 Inactive 05/02/2015 [facility] Sodium Chloride 0.154 MEQ/ML Injectable Solution 1,000 mL, 1,000 ml/hr, Infuse Over: 1 hr, Route: IV, ONCE, Priority: STAT, Dosing Weight 81.818 kg, Start date: 05/02/15 7:33:00, Duration: 1 doses or times, Stop date: 05/02/15 7:33:00 Inactive 05/02/2015 [facility] Morphine 4 mg, Route: IVP, Drug form: INJ, ONCE, Dosing Weight 81.818, kg, Priority: STAT, Start date: 05/02/15 7:33:00, Stop date: 05/02/15 7:33:00 Inactive 05/02/2015 [facility] Ketorolac 30 mg, Route: IV, Drug form: INJ, ONCE, Dosing Weight 81.818, kg, Priority: STAT, Start date: 03/29/15 11:11:00, Stop date: 03/29/15 11:11:00 Inactive 03/29/2015 [facility] Ondansetron 4 MG Disintegrating Tablet [Zofran] 4 mg=1 tab, PO, TID, PRN as needed for nausea/vomiting, (allow tablet to dissolve on tongue), # 10 tab, 0 Refill(s) Active 03/29/2015 [facility] Ketorolac Tromethamine 10 MG Oral Tablet 10 mg=1 tab, PO, TID, PRN Pain, X 5 day, # 15 tab, 0 Refill(s) Active 03/29/2015 [facility] Dilaudid 0.5 mg, Route: IVP, ONCE, Dosing Weight 81.818, kg, Priority: STAT, Start date: 03/29/15 9:20:00, Stop date: 03/29/15 9:20:00 Inactive 03/29/2015 [facility] Sodium Chloride 0.154 MEQ/ML Injectable Solution 1,000 mL, 1,000 ml/hr, Infuse Over: 1 hr, Route: IV, 1,000, Drug form: INJ, ONCE, Priority: STAT, Dosing Weight 81.818 kg, Start date: 03/29/15 8:00:00, Duration: 1 doses or times, Stop date: 03/29/15 8:00:00 Inactive 03/29/2015 [facility] Dilaudid 0.5 mg, 0.5 mL, Route: IVP, Drug form: INJ, ONCE, Dosing Weight 81.818, kg, Priority: STAT, Start date: 03/29/15 8:00:00, Stop date: 03/29/15 8:00:00 Inactive 03/29/2015 [facility] Ativan 0.5 mg, 0.25 mL, Route: IVP, Drug form: INJ, ONCE, Dosing Weight 81.818, kg, Priority: STAT, Start date: 03/29/15 7:59:00, Stop date: 03/29/15 7:59:00Notes: (Same as: Ativan) Inactive 03/29/2015 [facility] tramadol hydrochloride 50 MG Oral Tablet [Ultram] 50 mg=1 tab, PO, Q4H, PRN pain, X 5 day, # 30 tab, 0 Refill(s) Active 01/28/2015 [facility] Ondansetron 4 MG Disintegrating Tablet [Zofran] 4 mg=1 tab, PO, BID, PRN Nausea and Vomiting, Dissolve tab under tongue, X 3 day, # 10 tab, 0 Refill(s), Pharmacy: [facility] [id number] Instructions: Dissolve tab under tongue Active 01/28/2015 [facility] Zofran 4 mg, Route: IVP, Drug form: INJ, ONCE, Dosing Weight 81.818, kg, Priority: STAT, Start date: 01/28/15 10:08:00, Stop date: 01/28/15 10:08:00 Inactive 01/28/2015 [facility] Morphine 4 mg, Route: IVP, Drug form: INJ, ONCE, Dosing Weight 81.818, kg, Priority: STAT, Start date: 01/28/15 10:08:00, Stop date: 01/28/15 10:08:00 Inactive 01/28/2015 [facility] Zofran 4 mg, Route: IVP, Drug form: INJ, ONCE, Dosing Weight 81.818, kg, Priority: STAT, Start date: 01/28/15 8:48:00, Stop date: 01/28/15 8:48:00 Inactive 01/28/2015 [facility] Sodium Chloride 0.154 MEQ/ML Injectable Solution 1,000 mL, 1,000 ml/hr, Infuse Over: 1 hr, Route: IV, ONCE, Priority: STAT, Dosing Weight 81.818 kg, Start date: 01/28/15 8:48:00, Duration: 1 doses or times, Stop date: 01/28/15 8:48:00 Inactive 01/28/2015 [facility] Morphine 4 mg, Route: IVP, Drug form: INJ, ONCE, Dosing Weight 81.818, kg, Priority: STAT, Start date: 01/28/15 8:48:00, Stop date: 01/28/15 8:48:00 Inactive 01/28/2015 [facility] ibuprofen 800 mg oral tablet 800 mg=1 tab, PO, Q8H, PRN Pain, Take with food, # 30 tab, 0 Refill(s), Pharmacy: [id number] Instructions: Take with food Active 01/18/2015 [facility] tramadol hydrochloride 50 MG Oral Tablet [Ultram] 1 - 2 tabs, PO, Q4-6H, PRN as needed for pain, X 7 day, # 24 tab, 0 Refill(s) Inactive 01/18/2015 [facility] Ciprofloxacin 500 MG Oral Tablet [Cipro] 500 mg=1 tab, PO, BID, X 10 day, # 20 tab, 0 Refill(s), [email or web address] [id number] Active 01/18/2015 [facility] Promethazine Hydrochloride 25 MG Oral Tablet [Phenergan] 25 mg=1 tab, PO, Q4H, PRN Nausea, # 15 tab, 0 Refill(s), Pharmacy: [facility] [id number] Active 01/18/2015 [facility] Sodium Chloride 0.154 MEQ/ML Injectable Solution 1,000 mL, 1,000 ml/hr, Infuse Over: 1 hr, Route: IV, ONCE, Priority: STAT, Dosing Weight 81.818 kg, Start date: 01/18/15 9:35:00, Duration: 1 doses or times, Stop date: 01/18/15 9:35:00 Inactive 01/18/2015 [facility] Morphine 4 mg, Route: IVP, ONCE, Dosing Weight 81.818, kg, Start date: 01/18/15 9:29:00, Stop date: 01/18/15 9:29:00 Inactive 01/18/2015 [facility] Zofran 4 mg, Route: IVP, ONCE, Dosing Weight 81.818, kg, Start date: 01/18/15 9:29:00, Stop date: 01/18/15 9:29:00 Inactive 01/18/2015 [facility] Rocephin 1 gm, Route: IV, ONCE, Dosing Weight 81.818, kg, Start date: 01/18/15 9:29:00, Stop date: 01/18/15 9:29:00 Inactive 01/18/2015 [facility] Morphine 4 mg, Route: IVP, ONCE, Dosing Weight 81.818, kg, Start date: 01/18/15 8:52:00, Stop date: 01/18/15 8:52:00 Inactive 01/18/2015 [facility] Phenergan 12.5 mg, Route: IVP Central, ONCE, Dosing Weight 81.818, kg, PRN Nausea & Vomiting, Start date: 01/18/15 8:51:00 Inactive 01/18/2015 [facility] Nitrofurantoin 100 MG Oral Capsule [Macrodantin] 100 mg=1 cap, PO, QID, X 10 day, # 40 cap, 0 Refill(s) Active 01/13/2015 [facility] Acetaminophen 300 MG / Codeine Phosphate 30 MG Oral Tablet [Tylenol with Codeine #3] 1 - 2 tab, PO, Q4H, PRN Pain, X 3 day, # 20 tab, 0 Refill(s) Active 01/13/2015 [facility] Ondansetron 4 MG Disintegrating Tablet [Zofran] 4 mg=1 tab, PO, TID, PRN as needed for nausea/vomiting, (allow tablet to dissolve on tongue), # 10 tab, 0 Refill(s)Special Instructions: (allow tablet to dissolve on tongue) Active 01/13/2015 [facility] Zofran 4 mg, Route: IVP, Drug form: INJ, ONCE, Dosing Weight 81.818, kg, Priority: STAT, Start date: 01/13/15 11:55:00, Stop date: 01/13/15 11:55:00 Inactive 01/13/2015 [facility] Zofran 4 mg, Route: IVP, ONCE, Dosing Weight 81.818, kg, Start date: 01/13/15 11:53:00, Stop date: 01/13/15 11:53:00 Inactive 01/13/2015 [facility] Morphine 4 mg, Route: IVP, ONCE, Dosing Weight 81.818, kg, Start date: 01/13/15 10:59:00, Stop date: 01/13/15 10:59:00 Inactive 01/13/2015 [facility] Morphine 4 mg, Route: IVP, ONCE, Dosing Weight 81.818, kg, Priority: STAT, Start date: 01/13/15 8:23:00, Stop date: 01/13/15 8:23:00 Inactive 01/13/2015 [facility] Ondansetron 4 mg, Route: IVP, ONCE, Dosing Weight 81.818, kg, Priority: STAT, Start date: 01/13/15 8:23:00, Stop date: 01/13/15 8:23:00 Inactive 01/13/2015 [facility] Sodium Chloride 0.154 MEQ/ML Injectable Solution 1,000 mL, Infuse Over: 1 hr, Route: IV, ONCE, Priority: STAT, Dosing Weight 81.818 kg, Start date: 01/13/15 8:23:00, Duration: 1 doses or times, Stop date: 01/13/15 8:23:00 Inactive 01/13/2015 [facility] Saline Flush 0.9% 10 mL, Route: IVP, Drug Form: INJ, Dosing Weight 81.818, kg, PRN, PRN Line Flush, Start date: 01/13/15 8:23:00, Duration: 30 day, Stop date: 02/12/15 8:22:00Notes: (Same as: BD Posiflush) Inactive 01/13/2015 [facility] Nitrofurantoin 100 MG Oral Capsule [Macrobid] 100 mg=1 cap, PO, BID, X 7 day, # 14 cap, 0 Refill(s) Active 11/21/2014 [facility] Acetaminophen 325 MG / Hydrocodone Bitartrate 10 MG Oral Tablet [Houghton 10/325] 1 tab, Route: PO, Dosing Weight 81.818, kg, ONCE, Start date: 11/21/14 14:03:00, Stop date: 11/21/14 14:03:00 Inactive 11/21/2014 [facility] ketOROLAC 30 mg/mL injectable solution 30 mg, Route: IV, ONCE, Dosing Weight 81.818, kg, Start date: 11/21/14 12:34:00, Stop date: 11/21/14 12:34:00 Inactive 11/21/2014 [facility] Morphine 4 mg, 2 mL, Route: IVP, Drug form: INJ, ONCE, Dosing Weight 81.818, kg, Start date: 11/21/14 11:41:00, Stop date: 11/21/14 11:41:00Notes: (Same as:MORPhine Sulfate) Inactive 11/21/2014 [facility] Zofran 4 mg, 2 mL, Route: IVP, Drug form: INJ, ONCE, Dosing Weight 81.818, kg, Priority: STAT, Start date: 11/21/14 11:41:00, Stop date: 11/21/14 11:41:00Notes: (Same as: Zofran) MEDICATION WASTE Product Size: 4 mg Product Wasted: ___ mg Inactive 11/21/2014 [facility] Sodium Chloride 0.154 MEQ/ML Injectable Solution 1,000 mL, 1,000 ml/hr, Infuse Over: 1 hr, Route: IV, 1,000, Drug form: INJ, ONCE, Priority: STAT, Dosing Weight 81.818 kg, Start date: 11/21/14 11:41:00, Duration: 1 doses or times, Stop date: 11/21/14 11:41:00 Inactive 11/21/2014 [facility] Acetaminophen 300 MG / Codeine Phosphate 30 MG Oral Tablet [Tylenol with Codeine #3] 1 - 2 tab, PO, Q4H, PRN Pain, # 20 tab, 0 Refill(s) Active 09/09/2014 [facility] Acetaminophen 325 MG / Hydrocodone Bitartrate 10 MG Oral Tablet [Houghton 10/325] 1 tab, Route: PO, Drug Form: TAB, Dosing Weight 81.818, kg, ONCE, STAT, Start date: 09/09/14 10:06:00, Stop date: 09/09/14 10:06:00 Inactive 09/09/2014 [facility] Ketorolac 30 mg, Route: IVP, Drug form: INJ, ONCE, Dosing Weight 81.818, kg, Priority: STAT, Start date: 09/09/14 9:29:00, Stop date: 09/09/14 9:29:00 Inactive 09/09/2014 [facility] Rocephin 1 gm, Route: IVPB, Drug form: PDR/INJ, ONCE, Dosing Weight 81.818, kg, Priority: STAT, Start date: 09/09/14 9:25:00, Stop date: 09/09/14 9:25:00 Inactive 09/09/2014 [facility] Acetaminophen 325 MG / tramadol hydrochloride 37.5 MG Oral Tablet [Ultracet] 2 tab, PO, Q6H, PRN for pain, # 56 tab, 0 Refill(s) Inactive 09/09/2014 [facility] Ondansetron 4 MG Oral Tablet [Zofran] 4 mg=1 tab, PO, BID, # 10 tab, 0 Refill(s) Active 09/09/2014 [facility] ciprofloxacin 750 mg oral tablet 750 mg=1 tab, PO, Q12H, # 20 tab, 0 Refill(s) Active 09/09/2014 [facility] Rocephin 1 gm, Route: IM, Drug form: PDR/INJ, ONCE, Dosing Weight 81.818, kg, Priority: STAT, Start date: 09/09/14 9:04:00, Stop date: 09/09/14 9:04:00 Inactive 09/09/2014 [facility] Zofran 4 mg, Route: IVP, Drug form: INJ, ONCE, Dosing Weight 81.818, kg, Priority: STAT, Start date: 09/09/14 8:28:00, Stop date: 09/09/14 8:28:00 Inactive 09/09/2014 [facility] Morphine 4 mg, Route: IVP, Drug form: INJ, ONCE, Dosing Weight 81.818, kg, Priority: STAT, Start date: 09/09/14 8:28:00, Stop date: 09/09/14 8:28:00 Inactive 09/09/2014 [facility] Sodium Chloride 0.154 MEQ/ML Injectable Solution 1,000 mL, 1,000 ml/hr, Infuse Over: 1 hr, Route: IV, ONCE, Priority: STAT, Dosing Weight 81.818 kg, Start date: 09/09/14 8:27:00, Duration: 1 doses or times, Stop date: 09/09/14 8:27:00 Inactive 09/09/2014 [facility] Protonix 40 mg, Route: IVP, Drug form: INJ, Before Dinner, Dosing Weight 81.818, kg, Start date: 12/03/13 16:30:00, Duration: 30 day, Stop date: 01/01/14 16:30:00Notes: For IV push reconstitute with 10 ml 0.9% sodium chloride and push over 2 minutes. (Same as: Protonix) Inactive 12/03/2013 [facility] Metronidazole 500 MG Oral Tablet 500 mg=1 tab, PO, Q12H, # 20 tab, 0 Refill(s) Active 12/03/2013 [facility] doxycycline hyclate 100 mg oral tablet 100 mg=1 tab, PO, [id number], # 20 tab, 0 Refill(s) Active 12/03/2013 [facility] pantoprazole 40 MG Enteric Coated Tablet [Protonix] 40 mg=1 tab, PO, Daily, # 30 tab, 0 Refill(s) Active 12/03/2013 [facility] tramadol hydrochloride 50 MG Oral Tablet 50 mg=1 tab, PO, Q8H, Pain, # 30 tab, 0 Refill(s) Active 12/03/2013 [facility] ibuprofen 800 mg oral tablet 800 mg=1 tab, PO, Q8H, Take with food, # 30 tab, 0 Refill(s)Special Instructions: Take with food Active 12/03/2013 [facility] Ibuprofen 800 mg, 1 tab, Route: PO, Drug form: TAB, TID, Dosing Weight 81.818, kg, Start date: 12/03/13 0:00:00, Duration: 30 day, Stop date: 01/01/14 16:00:00Notes: (Same as: Motrin) "Do Not Crush" Take with food. Inactive 12/03/2013 [facility] Zofran 4 mg, 2 mL, Route: IV, Drug form: INJ, Q4H, Dosing Weight 81.818, kg, PRN Nausea, Start date: 12/02/13 23:05:00, Duration: 30 day, Stop date: 01/01/14 23:04:00Notes: (Same as: Zofran) No Longer Active 12/03/2013 [facility] Saline Flush 0.9% 5 ml, Route: IVP, Drug Form: INJ, Dosing Weight 81.818, kg, Q12H, Start date: 12/02/13 21:00:00, Duration: 30 day, Stop date: 01/01/14 9:00:00Notes: (Same as: BD Posiflush) No Longer Active 12/03/2013 [facility] Metronidazole 500 mg, 100 mL, Route: IVPB, Drug form: INJ, [id number], Dosing Weight 81.818, kg, Start date: 12/02/13 19:00:00, Duration: 7 day, Stop date: 12/09/13 7:00:00Notes: (Same as: Flagyl) Avoid alcohol. No Longer Active 12/03/2013 [facility] Morphine 2 mg, 1 mL, Route: IV, Drug form: INJ, Q3H, Dosing Weight 81.818, kg, PRN as needed for pain, Start date: 12/02/13 17:23:00, Duration: 30 day, Stop date: 01/01/14 17:22:00Notes: (Same as:MORPhine Sulfate) No Longer Active 12/02/2013 [facility] normal saline 0.9% IV 1,000 mL 1,000 mL, Rate: 125 ml/hr, Infuse over: 8 hr, Route: IV, Dosing Weight 81.818 kg, Total Volume: 1,000, Start date: 12/02/13 17:22:00, Duration: 30 day, Stop date: 01/01/14 17:21:00 No Longer Active 12/02/2013 [facility] Acetaminophen 325 MG / Hydrocodone Bitartrate 7.5 MG Oral Tablet [[place] 7.5/325] 1 tab, Route: PO, Drug Form: TAB, Dosing Weight 81.818, kg, Q6H, PRN as needed for pain, Start date: 12/02/13 17:20:00, Duration: 30 day, Stop date: 01/01/14 17:19:00Notes: Same as H[place] 325-7.5mg Do not exceed 4gm/day of acetaminophen. No Longer Active 12/02/2013 [facility] Doxycycline 100 mg, 1 tab, Route: PO, Drug form: TAB, [id number], Dosing Weight 81.818, kg, Start date: 12/02/13 16:00:00, Duration: 30 day, Stop date: 01/01/14 4:00:00Notes: NO MILK/ANTACIDS/IRON Take 1 hour before or 2 hours after dairy products No Longer Active 12/02/2013 [facility] nitroglycerin 0.4 mg sublingual tablet 0.4 mg, 1 tab, Route: SL, Drug form: TAB, Q5Min, PRN Chest Pain, Start date: 12/02/13 15:24:00, Duration: 30 day, Stop date: 01/01/14 15:23:00Notes: (Same as:Nitroquick, Nitrostat) "Do Not Crush" Sublingual tablet No Longer Active 12/02/2013 [facility] atropine 0.5 mg, 5 mL, Route: IVP, Drug form: INJ, PRN, PRN Bradycardia, Start date: 12/02/13 15:24:00, Duration: 30 day, Stop date: 01/01/14 15:23:00 No Longer Active 12/02/2013 [facility] Saline Flush 0.9% 5 ml, Route: IVP, Drug Form: INJ, Dosing Weight 81.818, kg, PRN, PRN Line Flush, Start date: 12/02/13 15:24:00, Duration: 30 day, Stop date: 01/01/14 15:23:00Notes: (Same as: BD Posiflush) No Longer Active 12/02/2013 [facility] Sodium Chloride 0.154 MEQ/ML Injectable Solution 1,000 mL, Rate: 50 ml/hr, Infuse over: 20 hr, Route: IV, Dosing Weight 81.818 kg, Total Volume: 1,000, Start date: 12/02/13 15:24:00, Duration: 30 day, Stop date: 01/01/14 15:23:00 Inactive 12/02/2013 [facility] Acetaminophen 325 MG / Hydrocodone Bitartrate 10 MG Oral Tablet [[place] 10/325] 1 tab, Route: PO, Dosing Weight 81.818, kg, ONCE, Start date: 12/02/13 13:58:00, Stop date: 12/02/13 13:58:00 Inactive 12/02/2013 [facility] Rocephin 250 mg, Route: IM, ONCE, Dosing Weight 81.818, kg, Start date: 12/02/13 13:49:00, Stop date: 12/02/13 13:49:00 Inactive 12/02/2013 [facility] Azithromycin 500 MG Oral Tablet [Zithromax] 1,000 mg, Route: PO, ONCE, Dosing Weight 81.818, kg, Start date: 12/02/13 13:48:00, Stop date: 12/02/13 13:48:00 Inactive 12/02/2013 [facility] Zofran 4 mg, Route: IVP, ONCE, Dosing Weight 81.818, kg, Priority: STAT, Start date: 12/02/13 9:43:00, Stop date: 12/02/13 9:43:00 Inactive 12/02/2013 [facility] Morphine 4 mg, Route: IVP, ONCE, Dosing Weight 81.818, kg, Priority: STAT, Start date: 12/02/13 9:43:00, Stop date: 12/02/13 9:43:00 Inactive 12/02/2013 [facility] Keflex 500 mg oral capsule 500 mg, 1 cap, PO, QID, 40 cap, Substitution Allowed, CAP PO Active [facility] 08/13/2012 [facility] Houghton 5/325 oral tablet 1-2 tab, PO, Q4-6H, PRN, 15 tab, Pain, Substitution Allowed, Maintenance PO Active [facility] 08/13/2012 [facility] morphine Sulfate 2 mg, Route: IVP, Drug form: INJ, ONCE, Dosing Weight 81.818, kg, Priority: STAT, Start date: 08/12/12 23:27:00, Stop date: 08/12/12 23:27:00 IVP No Longer Active [facility] 08/13/2012 [facility] Zofran 4 mg, Route: IVP, Drug form: INJ, ONCE, Dosing Weight 81.818, kg, Priority: STAT, Start date: 08/12/12 21:30:00, Stop date: 08/12/12 21:30:00 IVP No Longer Active [facility] 08/13/2012 [facility] morphine Sulfate 4 mg, Route: IVP, Drug form: INJ, ONCE, Dosing Weight 81.818, kg, Priority: STAT, Start date: 08/12/12 21:30:00, Stop date: 08/12/12 21:30:00 IVP No Longer Active [facility] 08/13/2012 [facility] Sodium Chloride 0.9% (Bolus) IV 500 mL 500 mL, Rate: 1,000 ml/hr, Infuse over: 30 minutes, Route: IV, kg, Total Volume: 500, Priority: STAT, Start date: 08/12/12 20:11:00, Duration: 1 doses or times, Stop date: 08/12/12 20:40:00 IV No Longer Active [facility] 08/13/2012 [facility] Saline Flush 0.9% 5 mL, Route: IVP, Drug Form: INJ, Dosing Weight 81.818, kg, PRN, PRN Line Flush, Start date: 08/12/12 20:11:00, Duration: 24 hr, Stop date: 08/13/12 20:10:00 IVP No Longer Active [facility] 08/13/2012 [facility] Cipro 500 mg oral tablet 500 mg, 1 tab, PO, Q12H, 20 tab, Substitution Allowed, TAB PO Active [facility] 07/15/2012 [facility] Houghton 5/325 oral tablet 1 tab, PO, Q4H, PRN, 12 tab, for pain, Substitution Allowed, Maintenance, TAB PO Active [facility] 07/15/2012 [facility] Dilaudid 1 mg, Route: IV, ONCE, Dosing Weight 81.818, kg, Start date: 07/15/12 12:05:00, Stop date: 07/15/12 12:05:00 IV No Longer Active [facility] 07/15/2012 [facility] Dilaudid 1 mg, Route: IV, ONCE, Dosing Weight 81.818, kg, Priority: STAT, Start date: 07/15/12 8:51:00, Stop date: 07/15/12 8:51:00 IV No Longer Active [facility] 07/15/2012 [facility] ondansetron 4 mg, 2 mL, Route: IVP, Drug form: INJ, ONCE, Dosing Weight 81.818, kg, Priority: STAT, Start date: 07/15/12 7:43:00, Stop date: 07/15/12 7:43:00 IVP No Longer Active [place] 07/15/2012 [facility] hydromorphone 1 mg, 1 mL, Route: IVP, Drug form: SOLN, ONCE, Dosing Weight 81.818, kg, Priority: STAT, Start date: 07/15/12 7:43:00, Stop date: 07/15/12 7:43:00 [facility] Saline Flush 0.9% 5 mL, Route: IVP, Drug Form: INJ, Dosing Weight 81.818, kg, PRN, PRN Line Flush, Start date: 07/15/12 7:43:00, Duration: 24 hr, Stop date: 07/16/12 7:42:00 IVP No Longer Active [facility] 07/15/2012 [facility] Sodium Chloride 0.9% (Bolus) IV 500 mL, 500 ml/hr, Route: IV, Drug Form: INJ, Dosing Weight 81.818, kg, ONCE, Bolus at 1,000 ml/hr, STAT, Start date: 07/15/12 7:43:00, Stop date: 07/15/12 7:43:00 IV No Longer Active [facility] 07/15/2012 [facility] Cipro 500 mg oral tablet 500 mg, 1 tab, PO, Q12H, 6 tab, Substitution Allowed PO Active [facility] 07/02/2012 [facility] H[place] 5/325 oral tablet 1-2 tablets, PO, Q4-6H, PRN, 24 tab, as needed for pain, Substitution Allowed, Maintenance PO Active [facility] 07/02/2012 [facility] Dilaudid 1 mg, Route: IV, ONCE, Dosing Weight 81.818, kg, Start date: 07/02/12 11:22:00, Stop date: 07/02/12 11:22:00 IV No Longer Active [facility] 07/02/2012 [facility] morphine Sulfate 6 mg, Route: IVP, Drug form: INJ, ONCE, Dosing Weight 81.818, kg, Priority: STAT, Start date: 07/02/12 10:08:00, Stop date: 07/02/12 10:08:00 IVP No Longer Active [facility] 07/02/2012 [facility] ketorolac 30 mg, 1 mL, Route: IVP, Drug form: INJ, ONCE, Dosing Weight 81.818, kg, Priority: STAT, Start date: 07/02/12 7:55:00, Stop date: 07/02/12 7:55:00 IVP No Longer Active [facility] 07/02/2012 [facility] ondansetron 4 mg, 2 mL, Route: IVP, Drug form: INJ, ONCE, Dosing Weight 81.818, kg, Priority: STAT, Start date: 07/02/12 7:55:00, Stop date: 07/02/12 7:55:00 IVP No Longer Active [facility] 07/02/2012 [facility] Sodium Chloride 0.9% (Bolus) IV 500 mL, 1000 ml/hr, Route: IV, Drug Form: INJ, Dosing Weight 81.818, kg, ONCE, Bolus at 1,000 ml/hr, STAT, Start date: 07/02/12 7:55:00, Stop date: 07/02/12 7:55:00 IV No Longer Active [facility] 07/02/2012 [facility] Saline Flush 0.9% 5 mL, Route: IVP, Drug Form: INJ, Dosing Weight 81.818, kg, PRN, PRN Line Flush, Start date: 07/02/12 7:55:00, Duration: 24 hr, Stop date: 07/03/12 7:54:00 IVP No Longer Active [facility] 07/02/2012 [facility] Sodium Chloride 0.9% IV 1,000 mL 1,000 mL, Rate: 125 ml/hr, Infuse over: 8 hr, Route: IV, kg, Total Volume: 1,000, Start date: 07/02/12 7:55:00, Duration: 30 day, Stop date: 08/01/12 7:54:00 IV No Longer Active [facility] 07/02/2012 [facility] [place] 10/325 oral tablet 1 tab, PO, Q6H, PRN, 24 tab, for pain, Substitution Allowed, Maintenance PO Active [facility] 06/23/2012 [facility] Valium 5 mg oral tablet 1/2 tab, PO, QID, PRN, 15 tab, muscle spasm, Substitution Allowed PO Active [facility] 06/23/2012 [facility] hydromorphone 0.5 mg, 0.5 mL, Route: IVP, Drug form: SOLN, ONCE, Dosing Weight 81.818, kg, Priority: STAT, Start date: 06/23/12 11:48:00, Stop date: 06/23/12 11:48:00 IVP Active [facility] 06/23/2012 [facility] Ativan 2 mg, 1 mL, Route: IVP, Drug form: INJ, ONCE, Dosing Weight 81.818, kg, Priority: STAT, Start date: 06/23/12 11:39:00, Stop date: 06/23/12 11:39:00 IVP No Longer Active [facility] 06/23/2012 [facility] Toradol 30 mg/mL injectable solution 30 mg, 1 mL, Route: IVP, Drug form: INJ, ONCE, Dosing Weight 81.818, kg, Start date: 06/23/12 11:39:00, Stop date: 06/23/12 11:39:00 IVP No Longer Active [facility] 06/23/2012 [facility] acetaminophen-hydrocodone 325 mg-10 mg oral tablet 1 tab, Route: PO, Dosing Weight 81.818, kg, ONCE, STAT, Start date: 06/23/12 10:06:00, Stop date: 06/23/12 10:06:00 PO No Longer Active [facility] 06/23/2012 [facility] hydromorphone 1 mg, Route: IVP, ONCE, Dosing Weight 81.818, kg, PRN as needed for pain, Priority: STAT, Start date: 06/23/12 9:07:00 IVP No Longer Active [facility] 06/23/2012 [facility] ondansetron 4 mg, Route: IVP, Drug form: INJ, ONCE, Dosing Weight 81.818, kg, Priority: STAT, Start date: 06/23/12 9:07:00, Stop date: 06/23/12 9:07:00 IVP No Longer Active [facility] 06/23/2012 [facility] Sodium Chloride 0.9% (Bolus) IV 1,000 mL, Route: IV, Dosing Weight 81.818, kg, ONCE, Bolus Dose - infuse over 1 hr, STAT, Start date: 06/23/12 9:07:00, Stop date: 06/23/12 9:07:00 IV No Longer Active [facility] 06/23/2012 [facility] acetaminophen-hydrocodone 325 mg-5 mg oral tablet 1 tab, Route: PO, Drug Form: TAB, Dosing Weight 81.818, kg, ONCE, Start date: 04/11/12 13:34:00, Stop date: 04/11/12 13:34:00 PO No Longer Active [facility] 04/11/2012 [facility] naproxen 500 mg oral tablet 500 mg, 1 tab, PO, BID, PRN, 20 tab, for pain, Substitution Allowed, TAB PO Active [facility] 04/11/2012 [facility] Ultram 50 mg oral tablet 1 - 2 tabs, PO, Q4-6H, PRN, 30 tab, as needed for pain, Substitution Allowed PO Active [facility] 04/11/2012 [facility] GI cocktail 30 mL, Route: PO, Dosing Weight 81.818, kg, ONCE, Start date: 04/11/12 12:02:00, Stop date: 04/11/12 12:02:00 PO No Longer Active [facility] 04/11/2012 [facility] Toradol 10 mg oral tablet 10 mg, 1 tab, PO, TID, PRN, 20 tab, Pain, Substitution Allowed, TAB PO Active [facility] 03/28/2012 [facility] ondansetron 4 mg oral tablet 4 mg, 1 tab, PO, BID, 10 tab, Substitution Allowed, TAB PO Active [facility] 03/28/2012 [facility] Dilaudid 1 mg, 1 mL, Route: IV, Drug form: SOLN, ONCE, Dosing Weight 81.818, kg, Start date: 03/28/12 14:33:00, Stop date: 03/28/12 14:33:00 IV No Longer Active [facility] 03/28/2012 [facility] NS 1000 mL 1,000 mL, Rate: 1,000 ml/hr, Infuse over: 1 hr, Route: IV, Dosing Weight 81.818 kg, Total Volume: 1,000, Start date: 03/28/12 13:25:00, Duration: 1 doses or times, Stop date: 03/28/12 14:24:00, Bolus DoseBolus Dose IV No Longer Active [facility] 03/28/2012 [facility] Saline Flush 0.9% 5 mL, Route: IVP, Drug Form: INJ, Dosing Weight 81.818, kg, PRN, PRN Line Flush, Start date: 03/28/12 13:25:00, Duration: 24 hr, Stop date: 03/29/12 13:24:00 IVP No Longer Active [facility] 03/28/2012 [facility] ondansetron 4 mg, Route: IVP, ONCE, Dosing Weight 81.818, kg, Priority: STAT, Start date: 03/28/12 13:25:00, Stop date: 03/28/12 13:25:00 IVP No Longer Active [facility] 03/28/2012 [facility] ketorolac 30 mg, Route: IVP, ONCE, Dosing Weight 81.818, kg, Priority: STAT, Start date: 03/28/12 13:25:00, Stop date: 03/28/12 13:25:00 IVP No Longer Active [facility] 03/28/2012 [facility] Phenergan 25 mg oral tablet 25 mg, 1 tab, PO, Q6H, PRN, 15 tab, Nausea, Substitution Allowed PO Active [facility] 03/25/2012 [facility] [place] 5/325 oral tablet 1-2 tab, PO, Q4-6H, PRN, 15 tab, Pain, Substitution Allowed, Maintenance PO Active [facility] 03/25/2012 [facility] Dilaudid 0.5 mg, Route: IV, ONCE, Dosing Weight 81.818, kg, Start date: 03/25/12 11:17:00, Stop date: 03/25/12 11:17:00 IV No Longer Active [facility] 03/25/2012 [facility] ondansetron 4 mg, 2 mL, Route: IVP, Drug form: INJ, ONCE, Dosing Weight 81.818, kg, Priority: STAT, Start date: 03/25/12 9:35:00, Stop date: 03/25/12 9:35:00 IVP No Longer Active [facility] 03/25/2012 [facility] hydromorphone 1 mg, 1 mL, Route: IVP, Drug form: SOLN, ONCE, Dosing Weight 81.818, kg, Priority: STAT, Start date: 03/25/12 9:35:00, Stop date: 03/25/12 9:35:00 IVP No Longer Active [facility] 03/25/2012 [facility] Saline Flush 0.9% 5 mL, Route: IVP, Drug Form: INJ, Dosing Weight 81.818, kg, PRN, PRN Line Flush, Start date: 03/25/12 9:35:00, Duration: 24 hr, Stop date: 03/26/12 9:34:00 IVP No Longer Active [facility] 03/25/2012 [facility] ondansetron 4 mg, Route: IVP, Drug form: INJ, ONCE, Priority: STAT, Start date: 12/02/11 11:42:00, Stop date: 12/02/11 11:42:00 IVP No Longer Active [place] 12/02/2011 [facility] morphine Sulfate 4 mg, Route: IVP, ONCE, Priority: STAT, Start date: 12/02/11 11:42:00, Stop date: 12/02/11 11:42:00 IVP No Longer Active [place] 12/02/2011 [facility] Ultram 50 mg oral tablet 1 - 2 tabs, PO, Q4-6H, PRN, 12 tab, as needed for pain, Substitution Allowed PO Active [place] 12/02/2011 [facility] ondansetron 4 mg oral tablet 4 mg, 1 tab, PO, BID, 10 tab, Substitution Allowed, TAB PO Active [place] 12/02/2011 [facility] Lomotil oral tablet 1 tab, PO, QID, PRN, 20 tab, for loose stool, Substitution Allowed, Soft Stop, TAB PO Active [place] 12/02/2011 [facility] ondansetron 4 mg, Route: IVP, Drug form: INJ, ONCE, Priority: STAT, Start date: 12/02/11 10:44:00, Stop date: 12/02/11 10:44:00 IVP No Longer Active [place] 12/02/2011 [facility] morphine Sulfate 4 mg, Route: IVP, ONCE, Priority: STAT, Start date: 12/02/11 10:43:00, Stop date: 12/02/11 10:43:00 IVP No Longer Active [place] 12/02/2011 [facility] Zofran ODT 4 mg oral tablet, disintegrating 4 mg, 1 tab, PO, BID, PRN, 10 tab, Nausea and Vomiting, Substitution Allowed, Dissolve tab under tongueDissolve tab under tongue PO Active [facility] 08/13/2011 [facility] [place] 5/325 oral tablet 1 tab, PO, Q4H, PRN, 14 tab, for pain, Substitution Allowed, Maintenance, TAB PO Active [facility] 08/13/2011 [facility] Dilaudid 1 mg, Route: IV, ONCE, Priority: STAT, Start date: 08/13/11 11:11:00, Stop date: 08/13/11 11:11:00 IV No Longer Active [facility] 08/13/2011 [facility] Saline Flush 0.9% 5 ml, Route: IVP, PRN, PRN Line Flush, Start date: 08/13/11 9:49:00, Duration: 24 hr, Stop date: 08/14/11 9:48:00 IVP No Longer Active [facility] 08/13/2011 [facility] Sodium Chloride 0.9% (Bolus) IV 1,000 mL 1,000 mL, Rate: 1,000 ml/hr, Infuse over: 1 hr, Route: IV, kg, Total Volume: 1,000, Bolus dose, Priority: STAT, Start date: 08/13/11 9:49:00, Duration: 1 doses or times, Stop date: 08/13/11 10:48:00 IV No Longer Active [facility] 08/13/2011 [facility] ondansetron 4 mg, Route: IVP, ONCE, Priority: STAT, Start date: 08/13/11 9:49:00, Stop date: 08/13/11 9:49:00 IVP No Longer Active [facility] 08/13/2011 [facility] morphine Sulfate 6 mg, Route: IVP, ONCE, Priority: STAT, Start date: 08/13/11 9:49:00, Stop date: 08/13/11 9:49:00 IVP No Longer Active [facility] 08/13/2011 [facility] normal saline 0.9% IV 1000 mL 1,000 mL, Rate: 1,000 ml/hr, Infuse over: 1 hr, Route: IV, kg, Total Volume: 1,000, Start date: 08/13/11 9:43:00, Duration: 30 day, Stop date: 09/12/11 9:42:00 IV No Longer Active [facility] 08/13/2011 [facility] ondansetron 4 mg, Route: IVP, Drug form: INJ, ONCE, Priority: STAT, Start date: 08/13/11 9:43:00, Stop date: 08/13/11 9:43:00 IVP No Longer Active [facility] 08/13/2011 [facility] morphine Sulfate 4 mg, Route: IVP, ONCE, Start date: 08/13/11 9:43:00, Stop date: 08/13/11 9:43:00 IVP No Longer Active [facility] 08/13/2011 [facility] Toradol 15 mg/mL injectable solution 15 mg, Route: IV, Drug form: INJ, ONCE, Start date: 06/19/11 13:59:00, Stop date: 06/19/11 13:59:00 IV No Longer Active [facility] 06/19/2011 [facility] tramadol 50 mg oral tablet 50 mg, 1 tab, PO, Q4H, PRN, 20 tab, for pain, Substitution Allowed, TAB PO Active [facility] 06/19/2011 [facility] Flagyl 2 gm, Route: PO, Drug form: TAB, ONCE, Start date: 06/19/11 13:50:00, Duration: 1 doses or times, Stop date: 06/19/11 13:50:00 PO No Longer Active [facility] 06/19/2011 [facility] Zithromax 1,000 mg, Route: PO, ONCE, Priority: STAT, Start date: 06/19/11 13:49:00, Stop date: 06/19/11 13:49:00 PO No Longer Active [facility] 06/19/2011 [facility] Rocephin 250 mg, Route: IM, ONCE, Start date: 06/19/11 13:49:00, Stop date: 06/19/11 13:49:00 IM No Longer Active [facility] 06/19/2011 [facility] Zofran 4 mg, Route: IVP, Drug form: INJ, ONCE, Priority: STAT, Start date: 06/19/11 11:08:00, Stop date: 06/19/11 11:08:00 IVP No Longer Active [facility] 06/19/2011 [facility] morphine Sulfate 4 mg, Route: IVP, ONCE, Priority: STAT, Start date: 06/19/11 10:47:00, Stop date: 06/19/11 10:47:00 IVP No Longer Active [facility] 06/19/2011 [facility] morphine Sulfate 6 mg, Route: IVP, ONCE, Priority: STAT, Start date: 06/19/11 8:05:00, Stop date: 06/19/11 8:05:00 IVP No Longer Active [facility] 06/19/2011 [facility] ondansetron 4 mg, Route: IVP, ONCE, Priority: STAT, Start date: 06/19/11 8:05:00, Stop date: 06/19/11 8:05:00 IVP No Longer Active [facility] 06/19/2011 [facility] Saline Flush 0.9% 5 ml, Route: IVP, Drug Form: INJ, PRN, PRN Line Flush, Start date: 06/19/11 8:05:00, Duration: 24 hr, Stop date: 06/20/11 8:04:00 IVP No Longer Active [facility] 06/19/2011 [facility] Sodium Chloride 0.9% IV 1,000 mL 1,000 mL, Rate: 125 ml/hr, Infuse over: 8 hr, Route: IV, Total Volume: 1,000, Start date: 06/19/11 8:05:00, Duration: 30 day, Stop date: 07/19/11 8:04:00 IV No Longer Active [facility] 06/19/2011 [facility] Amitriptyline Hcl 150 Mg Tablet Bedtime Active [facility] Diazepam 10 Mg Tablet Bedtime Active [facility] DIAZEPAM TAKE 1 TABLET BY MOUTH AT BEDTIME NEEDED FOR BREAKTHROUGH ANXIETY Active TAKE 1 TABLET BY MOUTH AT BEDTIME NEEDED FOR BREAKTHROUGH ANXIETY [facility] Allergies, Adverse Reactions, Alerts Substance Category Reaction Severity Reaction type Status Date Reported Comments Source Codeine Mild Allergy to Substance Active 08/08/2018 [facility] Tramadol Unknown Allergy to Substance Active 08/08/2018 [facility] acetaminophen-codeine<sup>1</sup> Assertion Mild Drug allergy Active [facility] traMADol<sup>2</sup> Assertion Drug allergy Active [facility] codeine sulfate Assertion Drug allergy Active [facility] traMADol<sup>1</sup> Assertion Drug allergy Active Puritis [facility] Immunizations Immunization Date Given Site Status Last Updated Comments Source Results Order Name Results Value Reference Range Date Interpretation Comments Source URINE AND STOOL UA Color Yellow *NA* (10/27/18 10:22 AM) Yellow 10/27/2018 [facility] URINE AND STOOL UA Spec Grav 1.020 <=1.030 10/27/2018 [facility] URINE AND STOOL UA Turbidity Slight *ABN* (10/27/18 10:22 AM) Clear 10/27/2018 [facility] URINE AND STOOL UA Bili Negative *NA* (10/27/18 10:22 AM) Negative 10/27/2018 [facility] URINE AND STOOL UA Ketones 20 mg/dL Negative mg/dL 10/27/2018 [facility] URINE AND STOOL UA pH 6.0 5.0 - 8.0 10/27/2018 [facility] URINE AND STOOL UA Glucose Negative mg/dL Negative mg/dL 10/27/2018 [facility] URINE AND STOOL UA Protein Negative mg/dL Negative mg/dL 10/27/2018 [facility] URINE AND STOOL UA Blood Negative (10/27/18 10:22 AM) Negative 10/27/2018 [facility] URINE AND STOOL UA Leuk Est Trace *ABN* (10/27/18 10:22 AM) Negative 10/27/2018 [facility] URINE AND STOOL UA Urobilinogen 2.0 mg/dL 0.1 - 1.0 10/27/2018 [facility] URINE AND STOOL UA Nitrite Negative (10/27/18 10:22 AM) Negative 10/27/2018 [facility] URINE AND STOOL UA Sq Epi Many /LPF Few /LPF 10/27/2018 [facility] URINE AND STOOL UA WBC 10 /HPF 0 - 5 10/27/2018 [facility] URINE AND STOOL UA RBC 4 /HPF 0 - 2 10/27/2018 [facility] URINE AND STOOL UA Mucus Few /LPF None Seen /LPF 10/27/2018 [facility] URINE AND STOOL UA Bacteria Few /HPF None Seen /HPF 10/27/2018 [facility] URINE AND STOOL UA Hyal Cast 3 /LPF 0 - 2 10/27/2018 [facility] URINE CHEM U Preg Negative (10/27/18 10:22 AM) Negative 10/27/2018 [facility] CHEM PANEL Lipase Lvl 157 unit/L 73 - 393 10/27/2018 [facility] CHEM PANEL B/C Ratio 14 6 - 25 10/27/2018 [facility] CHEM PANEL Globulin 3.5 g/dL 2.7 - 4.2 10/27/2018 [facility] CHEM PANEL AGAP 14.4 meq/L 10.0 - 20.0 10/27/2018 [facility] CHEM PANEL A/G Ratio 1.1 0.7 - 1.6 10/27/2018 [facility] CHEM PANEL eGFR 95 mL/min/1.73m2 10/27/2018 Result Comment: The eGFR is calculated using the CKD-EPI formula. In most young, healthy individuals the eGFR will be >90 mL/min/1.73m2. The eGFR declines with age. An eGFR of 60-89 may be normal in some populations, particularly the elderly, for whom the CKD-EPI formula has not been extensively validated. Use of the eGFR is not recommended in the following populations: Individuals with unstable creatinine concentrations, including patients and those with serious co-morbid conditions. Patients with extremes in muscle mass or diet. The data above are obtained from the National Kidney Disease Education Program (NKDEP) which additionally recommends that when the eGFR is used in patients with extremes of body mass index for purposes of drug dosing, the eGFR should be multiplied by the estimated BMI. [facility] CHEM PANEL Bili Total 0.8 mg/dL 0.2 - 1.3 10/27/2018 [facility] CHEM PANEL Albumin Lvl 3.7 g/dL 3.5 - 5.0 10/27/2018 [facility] CHEM PANEL Total Protein 7.2 g/dL 6.4 - 8.4 10/27/2018 [facility] CHEM PANEL Alk Phos 102 unit/L 39 - 136 10/27/2018 [facility] CHEM PANEL AST 19 unit/L 0 - 37 10/27/2018 [facility] CHEM PANEL ALT 38 unit/L 0 - 65 10/27/2018 [facility] CHEM PANEL CO2 19 meq/L 24 - 32 10/27/2018 [facility] CHEM PANEL Calcium Lvl 8.7 mg/dL 8.5 - 10.5 10/27/2018 [facility] CHEM PANEL BUN 11 mg/dL 7 - 22 10/27/2018 [facility] CHEM PANEL Creatinine Lvl 0.79 mg/dL 0.50 - 1.40 10/27/2018 [facility] CHEM PANEL Potassium Lvl 3.4 meq/L 3.5 - 5.1 10/27/2018 [facility] CHEM PANEL Sodium Lvl 141 meq/L 135 - 145 10/27/2018 [facility] CHEM PANEL Chloride Lvl 111 meq/L 95 - 109 10/27/2018 [facility] CHEM PANEL Glucose Lvl 103 mg/dL 70 - 99 10/27/2018 [facility] MPV 7.4 fL 7.4 - 10.4 10/27/2018 [facility] RDW 14.3 % 11.5 - 14.5 10/27/2018 [facility] Platelet 341 K/CMM 133 - 450 10/27/2018 [facility] MCHC 34.4 g/dL 32.0 - 36.0 10/27/2018 [facility] RBC 4.76 M/CMM 4.20 - 5.40 10/27/2018 [facility] WBC 6.0 K/CMM 3.7 - 10.4 10/27/2018 [facility] MCV 85.0 fL 80.0 - 98.0 10/27/2018 [facility] MCH 29.2 pg 27.0 - 31.0 10/27/2018 [facility] Hct 40.4 % 36.0 - 48.0 10/27/2018 [facility] Hgb 13.9 g/dL 12.0 - 16.0 10/27/2018 [facility] Basophils # 0.1 K/CMM 0.0 - 0.2 10/27/2018 [facility] Lymphocytes # 1.7 K/CMM 1.0 - 5.5 10/27/2018 [facility] Eosinophils # 0.1 K/CMM 0.0 - 0.5 10/27/2018 [facility] Monocytes # 0.4 K/CMM 0.0 - 0.8 10/27/2018 [facility] Lymphocytes 28.4 % 20.0 - 40.0 10/27/2018 [facility] Neutrophils # 3.7 K/CMM 1.5 - 8.1 10/27/2018 [facility] Basophils 1.6 % 0.0 - 1.0 10/27/2018 [facility] Monocytes 5.9 % 2.0 - 12.0 10/27/2018 [facility] Eosinophils 1.5 % 0.0 - 4.0 10/27/2018 [facility] Segs 62.6 % 45.0 - 75.0 10/27/2018 [facility] CHEM PANEL A/G Ratio 0.9 0.7 - 1.6 10/14/2018 [facility] CHEM PANEL Globulin 3.5 g/dL 2.7 - 4.2 10/14/2018 [facility] CHEM PANEL AGAP 13.8 meq/L 10.0 - 20.0 10/14/2018 [facility] CHEM PANEL B/C Ratio 11 6 - 25 10/14/2018 [facility] CHEM PANEL eGFR 76 mL/min/1.73m2 10/14/2018 Result Comment: The eGFR is calculated using the CKD-EPI formula. In most young, healthy individuals the eGFR will be >90 mL/min/1.73m2. The eGFR declines with age. An eGFR of 60-89 may be normal in some populations, particularly the elderly, for whom the CKD-EPI formula has not been extensively validated. Use of the eGFR is not recommended in the following populations: Individuals with unstable creatinine concentrations, including patients and those with serious co-morbid conditions. Patients with extremes in muscle mass or diet. The data above are obtained from the National Kidney Disease Education Program (NKDEP) which additionally recommends that when the eGFR is used in patients with extremes of body mass index for purposes of drug dosing, the eGFR should be multiplied by the estimated BMI. [facility] CHEM PANEL Alk Phos 99 unit/L 39 - 136 10/14/2018 [facility] CHEM PANEL AST 11 unit/L 0 - 37 10/14/2018 [facility] CHEM PANEL Bili Total 0.6 mg/dL 0.2 - 1.3 10/14/2018 [facility] CHEM PANEL CO2 20 meq/L 24 - 32 10/14/2018 [facility] CHEM PANEL Calcium Lvl 8.5 mg/dL 8.5 - 10.5 10/14/2018 [facility] CHEM PANEL Creatinine Lvl 0.94 mg/dL 0.50 - 1.40 10/14/2018 [facility] CHEM PANEL Sodium Lvl 140 meq/L 135 - 145 10/14/2018 [facility] CHEM PANEL Potassium Lvl 3.8 meq/L 3.5 - 5.1 10/14/2018 [facility] CHEM PANEL Glucose Lvl 132 mg/dL 70 - 99 10/14/2018 [facility] CHEM PANEL BUN 10 mg/dL 7 - 22 10/14/2018 [facility] CHEM PANEL Albumin Lvl 3.2 g/dL 3.5 - 5.0 10/14/2018 [facility] CHEM PANEL ALT 29 unit/L 0 - 65 10/14/2018 [facility] CHEM PANEL Total Protein 6.7 g/dL 6.4 - 8.4 10/14/2018 [facility] CHEM PANEL Chloride Lvl 110 meq/L 95 - 109 10/14/2018 [facility] CHEM PANEL Lipase Lvl 145 unit/L 73 - 393 10/14/2018 [facility] ENDOCRINOLOGY S Preg Negative *NA* (10/14/18 8:21 AM) Negative 10/14/2018 [facility] HEMATOLOGY RDW 14.7 % 11.5 - 14.5 10/14/2018 [facility] HEMATOLOGY MPV 7.6 fL 7.4 - 10.4 10/14/2018 [facility] Platelet 245 K/CMM 133 - 450 10/14/2018 [facility] RBC 4.31 M/CMM 4.20 - 5.40 10/14/2018 [facility] WBC 6.2 K/CMM 3.7 - 10.4 10/14/2018 [facility] MCH 30.0 pg 27.0 - 31.0 10/14/2018 [facility] MCV 86.5 fL 80.0 - 98.0 10/14/2018 [facility] Hct 37.3 % 36.0 - 48.0 10/14/2018 [facility] Hgb 12.9 g/dL 12.0 - 16.0 10/14/2018 [facility] MCHC 34.7 g/dL 32.0 - 36.0 10/14/2018 [facility] Basophils 0.7 % 0.0 - 1.0 10/14/2018 [facility] Neutrophils # 4.1 K/CMM 1.5 - 8.1 10/14/2018 [facility] HEMATOLOGY Eosinophils # 0.1 K/CMM 0.0 - 0.5 10/14/2018 [facility] Lymphocytes # 1.5 K/CMM 1.0 - 5.5 10/14/2018 [facility] Monocytes # 0.4 K/CMM 0.0 - 0.8 10/14/2018 [facility] Lymphocytes 24.7 % 20.0 - 40.0 10/14/2018 [facility] Segs 66.4 % 45.0 - 75.0 10/14/2018 [facility] Monocytes 6.3 % 2.0 - 12.0 10/14/2018 [facility] HEMATOLOGY Eosinophils 1.9 % 0.0 - 4.0 10/14/2018 [facility] URINE AND STOOL UA Leuk Est Trace *ABN* (10/14/18 8:21 AM) Negative 10/14/2018 [facility] URINE AND STOOL UA Urobilinogen 0.2 EU/dL 0.1 - 1.0 10/14/2018 [facility] URINE AND STOOL UA Nitrite Negative (10/14/18 8:21 AM) Negative 10/14/2018 [facility] URINE AND STOOL UA Glucose Negative (10/14/18 8:21 AM) Negative 10/14/2018 [facility] URINE AND STOOL UA Ketones Negative *NA* (10/14/18 8:21 AM) Negative 10/14/2018 [facility] URINE AND STOOL UA Bili Negative *NA* (10/14/18 8:21 AM) Negative 10/14/2018 [facility] URINE AND STOOL UA Blood Negative (10/14/18 8:21 AM) Negative 10/14/2018 [facility] URINE AND STOOL UA Color Yellow *NA* (10/14/18 8:21 AM) Yellow 10/14/2018 [facility] URINE AND STOOL UA Turbidity Clear (10/14/18 8:21 AM) Clear 10/14/2018 [facility] URINE AND STOOL UA Spec Grav 1.015 <=1.030 10/14/2018 [facility] URINE AND STOOL UA pH 5.5 5.0 - 8.0 10/14/2018 [facility] URINE AND STOOL UA Protein Negative (10/14/18 8:21 AM) Negative 10/14/2018 [facility] URINE AND STOOL UA Mucus Few /LPF None Seen /LPF 10/14/2018 [facility] URINE AND STOOL UA Sq Epi Many /LPF Few /LPF 10/14/2018 [facility] URINE AND STOOL UA WBC 4 /HPF 0 - 5 10/14/2018 [facility] URINE AND STOOL UA RBC 2 /HPF 0 - 2 10/14/2018 [facility] ED Abdomen/Pelvis IV contrast only CT ED Abdomen/Pelvis IV contrast only CT EXAM: CT ABDOMEN PELVIS WITH CONTRAST CLINICAL INDICATION: 42 years old Female with - epigastric, RLQ pain. TECHNIQUE: GI CONTRAST: None. IV CONTRAST: 100 cc of [id number] Axial post-contrast images were obtained from the lower chest to the symphysis pubis. Coronal and sagittal reconstruction images were performed. CT imaging performed at this location utilizes radiation dose optimization techniques which include one or more of the following: -Automated exposure control -Adjustment of the mA and/or kV according to patient size -Use of iterative reconstruction technique CT Radiation Dose DLP 1355.34 mGy-cm COMPARISON: CT renal stone 09/29/2018 FINDINGS: LOWER CHEST: Dependent atelectatic changes in the lung bases. SOLID ORGANS: Low-density liver suggestive of fatty infiltration. No focal hepatic lesion or intrahepatic biliary ductal dilatation is seen. Prior cholecystectomy. The spleen, pancreas, and adrenal glands are normal in appearance. Both kidneys demonstrate normal corticomedullary phase of enhancement. Punctate bilateral nonobstructing nephrolithiasis. No hydronephrosis, or mass is apparent. Subcentimeter left renal hypodensity which is too small to characterize, though statistically likely represents a cyst. BOWEL: The small bowel and colon are normal in caliber without wall thickening. A normal appendix is identified. Few distal colonic diverticula noted without evidence of acute diverticulitis. PERITONEUM: No free intraperitoneal fluid or air. Prior anterior abdominal hernia repair. RETROPERITONEUM: Normal caliber of the abdominal aorta is noted. Retroaortic left renal vein. No lymphadenopathy is seen. PELVIS: The visualized urinary bladder wall is normal thickness. Uterus is absent. Small bilateral ovarian cysts measuring 1.3 cm. MUSCULOSKELETAL: No acute osseous abnormality is seen. No destructive lytic or blastic osseous lesion is noted. IMPRESSION: 1. Fatty infiltration of the liver. 2. Punctate nonobstructing bilateral nephrolithiasis. 3. Subcentimeter probable left renal cyst. 4. Small bilateral probably benign ovarian cysts. 5. Normal appendix. SL: [id number] 10/14/2018 - - Read by: Burt Smith MD Dictated Date/time: 10/14/18 10:13 Electronically Signed by: Burt Smith MD 10/14/18 10:24 FINAL REPORT [facility] Urine color determination YELLOW YELLOW 10/01/2018 [facility] Urine clarity SL CLOUDY CLEAR 10/01/2018 [facility] Specific gravity of Urine by Test strip 1.015 1.010 - 1.025 10/01/2018 [facility] Urine pH measurement by automated test strip 6 5 - 7 10/01/2018 [facility] Urine leukocyte esterase detection by dipstick TRACE NEGATIVE 10/01/2018 [facility] Urine nitrite detection NEGATIVE NEGATIVE 10/01/2018 [facility] Urine protein measurement by test strip (mass/volume) NEGATIVE NEGATIVE 10/01/2018 [facility] Urine glucose detection NEGATIVE NEGATIVE 10/01/2018 [facility] Urine ketones detection by automated test strip NEGATIVE NEGATIVE 10/01/2018 [facility] Urine urobilinogen measurement by test strip (mass/volume) 0.2 0.2 - 1 10/01/2018 [facility] Urine total bilirubin measurement (mass/volume) NEGATIVE NEGATIVE 10/01/2018 [facility] Urine erythrocytes detection NEGATIVE NEGATIVE 10/01/2018 [facility] Automated urine sediment leukocyte count by microscopy (number/high power field) 6-10 0 - 5 10/01/2018 [facility] Erythrocytes detection in urine sediment by light microscopy NONE 0 - 5 10/01/2018 [facility] Bacteria detection in urine sediment by light microscopy FEW NONE 10/01/2018 [facility] Epithelial cells detection in urine sediment by light microscopy FEW NONE 10/01/2018 [facility] CHEM PANEL Lipase Lvl 129 unit/L 73 - 393 09/29/2018 [facility] ELECTROLYTES AGAP 13.7 meq/L 10.0 - 20.0 09/29/2018 [facility] ELECTROLYTES B/C Ratio 14 6 - 25 09/29/2018 [facility] ELECTROLYTES A/G Ratio 1.1 0.7 - 1.6 09/29/2018 [facility] ELECTROLYTES Globulin 3.2 g/dL 2.7 - 4.2 09/29/2018 [facility] ELECTROLYTES eGFR 72 mL/min/1.73m2 09/29/2018 Result Comment: The eGFR is calculated using the CKD-EPI formula. In most young, healthy individuals the eGFR will be >90 mL/min/1.73m2. The eGFR declines with age. An eGFR of 60-89 may be normal in some populations, particularly the elderly, for whom the CKD-EPI formula has not been extensively validated. Use of the eGFR is not recommended in the following populations: Individuals with unstable creatinine concentrations, including patients and those with serious co-morbid conditions. Patients with extremes in muscle mass or diet. The data above are obtained from the National Kidney Disease Education Program (NKDEP) which additionally recommends that when the eGFR is used in patients with extremes of body mass index for purposes of drug dosing, the eGFR should be multiplied by the estimated BMI. [facility] ELECTROLYTES Calcium Lvl 8.8 mg/dL 8.5 - 10.5 09/29/2018 [facility] ELECTROLYTES Total Protein 6.8 g/dL 6.4 - 8.4 09/29/2018 [facility] ELECTROLYTES Bili Total 0.3 mg/dL 0.2 - 1.3 09/29/2018 [facility] ELECTROLYTES AST 9 unit/L 0 - 37 09/29/2018 [facility] ELECTROLYTES Albumin Lvl 3.6 g/dL 3.5 - 5.0 09/29/2018 [facility] ELECTROLYTES ALT 22 unit/L 0 - 65 09/29/2018 [facility] ELECTROLYTES Alk Phos 94 unit/L 39 - 136 09/29/2018 [facility] ELECTROLYTES Creatinine Lvl 0.99 mg/dL 0.50 - 1.40 09/29/2018 [facility] ELECTROLYTES Sodium Lvl 141 meq/L 135 - 145 09/29/2018 [facility] ELECTROLYTES Glucose Lvl 111 mg/dL 70 - 99 09/29/2018 [facility] ELECTROLYTES BUN 14 mg/dL 7 - 22 09/29/2018 [facility] ELECTROLYTES Potassium Lvl 3.7 meq/L 3.5 - 5.1 09/29/2018 [facility] ELECTROLYTES Chloride Lvl 109 meq/L 95 - 109 09/29/2018 [facility] ELECTROLYTES CO2 22 meq/L 24 - 32 09/29/2018 [facility] WBC 5.4 K/CMM 3.7 - 10.4 09/29/2018 [facility] Hgb 13.2 g/dL 12.0 - 16.0 09/29/2018 [facility] RBC 4.45 M/CMM 4.20 - 5.40 09/29/2018 [facility] MCV 85.6 fL 80.0 - 98.0 09/29/2018 [facility] Hct 38.1 % 36.0 - 48.0 09/29/2018 [facility] RDW 14.4 % 11.5 - 14.5 09/29/2018 [facility] MCHC 34.6 g/dL 32.0 - 36.0 09/29/2018 [facility] MCH 29.6 pg 27.0 - 31.0 09/29/2018 [facility] HEMATOLOGY MPV 7.5 fL 7.4 - 10.4 09/29/2018 [facility] HEMATOLOGY Platelet 260 K/CMM 133 - 450 09/29/2018 [facility] Lymphocytes # 1.5 K/CMM 1.0 - 5.5 09/29/2018 [facility] Neutrophils # 3.5 K/CMM 1.5 - 8.1 09/29/2018 [facility] HEMATOLOGY Eosinophils # 0.1 K/CMM 0.0 - 0.5 09/29/2018 [facility] [facility] Mon[facility] # 0.3 K/CMM 0.0 - 0.8 09/29/2018 [facility] HEMATOLOGY Segs 65.1 % 45.0 - 75.0 09/29/2018 [facility] Lymphocytes 27.2 % 20.0 - 40.0 09/29/2018 [facility] Basophils 0.9 % 0.0 - 1.0 09/29/2018 [facility] Eosinophils 1.9 % 0.0 - 4.0 09/29/2018 [facility] Monocytes 4.9 % 2.0 - 12.0 09/29/2018 [facility] URINE AND STOOL UA Color Ltyellow 09/29/2018 [facility] URINE AND STOOL UA Urobilinogen <=1.0 mg/dL 0.1 - 1.0 09/29/2018 [facility] URINE AND STOOL UA Bacteria Many /HPF None Seen /HPF 09/29/2018 [facility] URINE AND STOOL UA RBC null 0 - 2 09/29/2018 [facility] URINE AND STOOL UA WBC 1 /HPF 0 - 5 09/29/2018 [facility] URINE AND STOOL UA Nitrite Negative (09/29/18 8:57 AM) Negative 09/29/2018 [facility] URINE AND STOOL UA Sq Epi Few /LPF Few /LPF 09/29/2018 [facility] URINE AND STOOL UA Blood Negative (09/29/18 8:57 AM) Negative 09/29/2018 [facility] URINE AND STOOL UA Leuk Est Negative (09/29/18 8:57 AM) Negative 09/29/2018 [facility] URINE AND STOOL UA Turbidity Slight *ABN* (09/29/18 8:57 AM) Clear 09/29/2018 [facility] URINE AND STOOL UA Ketones Negative mg/dL Negative mg/dL 09/29/2018 [facility] URINE AND STOOL UA Glucose Negative mg/dL Negative mg/dL 09/29/2018 [facility] URINE AND STOOL UA Bili Negative *NA* (09/29/18 8:57 AM) Negative 09/29/2018 [facility] URINE AND STOOL UA Protein Negative mg/dL Negative mg/dL 09/29/2018 [facility] URINE AND STOOL UA pH 5.0 5.0 - 8.0 09/29/2018 [facility] URINE AND STOOL UA Spec Grav 1.010 <=1.030 09/29/2018 [facility] Renal Stone CT Renal Stone CT PROCEDURE: CT ABDOMEN AND PELVIS WITHOUT CONTRAST Clinical Indication: Acute abdominal pain. Acute right flank pain. Comparison: 08/04/2018 CT abdomen and pelvis TECHNIQUE: Helical imaging was performed from the diaphragm through the pubic symphysis with multiplanar reformations obtained. DOSE: CT imaging performed at this location utilizes radiation dose optimization techniques which include one or more of the followin) Automated exposure control; 2) Adjustment of the mA and/or kV according to patient size; 3) Use of iterative reconstruction techniques. DLP: 1301 mGy-cm IV CONTRAST: None. GI CONTRAST: None. FINDINGS: LOWER CHEST: Dependent atelectasis seen in the lung bases. PERITONEUM: No free intraperitoneal fluid or air. RETROPERITONEUM: No adenopathy. The aorta is normal in caliber. SOLID ORGANS: Gallbladder is been removed. Liver is low density. The spleen, pancreas, and bilateral adrenal glands appear normal for noncontrast exam. KIDNEYS/URETERS: Few punctate 1 to 2 mm nonobstructing right renal calculi are seen. Few nonobstructing left renal calculi measure up to 4 mm. Lobulated kidneys are likely congenital in nature although some left renal cortical scarring is also present. Left renal 8 mm exophytic fluid density lesion is present. No hydronephrosis bilaterally. No hydroureter or ureteral calculi bilaterally. PELVIS: Bladder is filled with fluid. Uterus has been removed. BOWELS/APPENDIX: No abnormally dilated small or large bowel loops. The colon is redundant. 1 or 2 distal colonic diverticula are seen. The appendix is normal in caliber with appendicolith within. MUSCULOSKELETAL: Prior anterior abdominal wall hernia repair. Sclerosis of sacroiliac joints once again seen appearing greatest of the ilium, left greater than right. IMPRESSION: 1. Nonobstructing bilateral nephrolithiasis. 2. Left renal cortical scarring and left renal cyst. 3. Hepatic steatosis. 4. Bibasilar dependent atelectasis. SL: [id number] 09/29/2018 - - Read by: Georgi Aguilar MD Dictated Date/time: 09/29/18 09:52 Electronically Signed by: Georgi Aguilar MD 09/29/18 10:02 FINAL REPORT [facility] CARDIAC ENZYMES Troponin-I null 0.00 - 0.40 09/09/2018 [facility] CARDIAC ENZYMES CK MB null 0.5 - 3.6 09/09/2018 [facility] CARDIAC ENZYMES Total CK 99 unit/L 12 - 191 09/09/2018 [facility] CARDIAC ENZYMES CK MB Index null 0.0 - 2.5 09/09/2018 [facility] CHEM PANEL eGFR 78 mL/min/1.73m2 09/09/2018 Result Comment: The eGFR is calculated using the CKD-EPI formula. In most young, healthy individuals the eGFR will be >90 mL/min/1.73m2. The eGFR declines with age. An eGFR of 60-89 may be normal in some populations, particularly the elderly, for whom the CKD-EPI formula has not been extensively validated. Use of the eGFR is not recommended in the following populations: Individuals with unstable creatinine concentrations, including patients and those with serious co-morbid conditions. Patients with extremes in muscle mass or diet. The data above are obtained from the National Kidney Disease Education Program (NKDEP) which additionally recommends that when the eGFR is used in patients with extremes of body mass index for purposes of drug dosing, the eGFR should be multiplied by the estimated BMI. [facility] CHEM PANEL AGAP 13.1 meq/L 10.0 - 20.0 09/09/2018 [facility] CHEM PANEL A/G Ratio 1.0 0.7 - 1.6 09/09/2018 [facility] CHEM PANEL B/C Ratio 11 6 - 25 09/09/2018 [facility] CHEM PANEL Globulin 3.4 g/dL 2.7 - 4.2 09/09/2018 [facility] CHEM PANEL AST 16 unit/L 0 - 37 09/09/2018 [facility] CHEM PANEL Alk Phos 91 unit/L 39 - 136 09/09/2018 [facility] CHEM PANEL Bili Total 0.2 mg/dL 0.2 - 1.3 09/09/2018 [facility] CHEM PANEL Glucose Lvl 76 mg/dL 70 - 99 09/09/2018 [facility] CHEM PANEL Chloride Lvl 111 meq/L 95 - 109 09/09/2018 [facility] CHEM PANEL Albumin Lvl 3.4 g/dL 3.5 - 5.0 09/09/2018 [facility] CHEM PANEL Total Protein 6.8 g/dL 6.4 - 8.4 09/09/2018 [facility] CHEM PANEL Calcium Lvl 8.4 mg/dL 8.5 - 10.5 09/09/2018 [facility] CHEM PANEL Sodium Lvl 142 meq/L 135 - 145 09/09/2018 [facility] CHEM PANEL Potassium Lvl 4.1 meq/L 3.5 - 5.1 09/09/2018 [facility] CHEM PANEL Creatinine Lvl 0.92 mg/dL 0.50 - 1.40 09/09/2018 [facility] CHEM PANEL BUN 10 mg/dL 7 - 22 09/09/2018 [facility] CHEM PANEL CO2 22 meq/L 24 - 32 09/09/2018 [facility] CHEM PANEL ALT 30 unit/L 0 - 65 09/09/2018 [facility] DRUG SCREEN U Amph Scr Negative *NA* (09/09/18 9:40 AM) Negative 09/09/2018 [facility] DRUG SCREEN U Elaine Scr Negative *NA* (09/09/18 9:40 AM) Negative 09/09/2018 [facility] DRUG SCREEN U Phencyclidine Scr Negative *NA* (09/09/18 9:40 AM) Negative 09/09/2018 [facility] DRUG SCREEN UDS Note See Note (09/09/18 9:40 AM) 09/09/2018 [facility] DRUG SCREEN U Benzodiaz Scr Positive *ABN* (09/09/18 9:40 AM) Negative 09/09/2018 [facility] DRUG SCREEN U Opiate Scr Positive *ABN* (09/09/18 9:40 AM) Negative 09/09/2018 [facility] DRUG SCREEN U Cocaine Scr Negative *NA* (09/09/18 9:40 AM) Negative 09/09/2018 [facility] DRUG SCREEN U Cannab Scr Positive *ABN* (09/09/18 9:40 AM) Negative 09/09/2018 [facility] HEMATOLOGY MCHC 34.1 g/dL 32.0 - 36.0 09/09/2018 [facility] HEMATOLOGY Hct 35.8 % 36.0 - 48.0 09/09/2018 [facility] WBC 5.0 K/CMM 3.7 - 10.4 09/09/2018 [facility] MCV 86.5 fL 80.0 - 98.0 09/09/2018 [facility] MPV 7.5 fL 7.4 - 10.4 09/09/2018 [facility] RBC 4.14 M/CMM 4.20 - 5.40 09/09/2018 [facility] Hgb 12.2 g/dL 12.0 - 16.0 09/09/2018 [facility] Platelet 252 K/CMM 133 - 450 09/09/2018 [facility] RDW 14.7 % 11.5 - 14.5 09/09/2018 [facility] MCH 29.5 pg 27.0 - 31.0 09/09/2018 [facility] Monocytes # 0.3 K/CMM 0.0 - 0.8 09/09/2018 [facility] Eosinophils # 0.1 K/CMM 0.0 - 0.5 09/09/2018 [facility] Monocytes 6.3 % 2.0 - 12.0 09/09/2018 [facility] Basophils # 0.1 K/CMM 0.0 - 0.2 09/09/2018 [facility] Eosinophils 2.4 % 0.0 - 4.0 09/09/2018 [facility] Basophils 1.0 % 0.0 - 1.0 09/09/2018 [facility] Neutrophils # 2.8 K/CMM 1.5 - 8.1 09/09/2018 [facility] Lymphocytes # 1.7 K/CMM 1.0 - 5.5 09/09/2018 [facility] Segs 56.7 % 45.0 - 75.0 09/09/2018 [facility] Lymphocytes 33.6 % 20.0 - 40.0 09/09/2018 [facility] Chest 2 views DX Chest 2 views DX CHEST TWO VIEW INDICATION: Chest pain with dizziness COMPARISON: 08/30/2018 chest x-ray FINDINGS: The lungs are clear. The pleura, cardiomediastinal silhouette and bony thorax are normal. IMPRESSION: Negative. END IMPRESSION SL: [id number] 09/09/2018 - - Read by: Lucio Stone MD Dictated Date/time: 09/09/18 08:59 Electronically Signed by: Lucio Stone MD 09/09/18 09:00 FINAL REPORT [facility] Brain wo contrast CT Brain wo contrast CT Patient Name: ANGELA ESPINOSA : 1975; Age: 42 years Female MR: [id number] Study: Brain wo contrast CT 09/09/2018 8:27 CDT Clinical Indication: Weakness - syncope. Left sided neck pain radiating from chest/back. onset: chronic. COMPARISON: 12/12/2013 TECHNIQUE: CT images were obtained from the foramen magnum to the vertex without the use of intravenous contrast on a multidetector CT. Coronal and sagittal reconstructions were obtained. CT imaging performed at this location utilizes radiation dose optimization techniques which include one or more of the following: -Automated exposure control -Adjustment of the mA and/or kV according to patient size -Use of iterative reconstruction technique CT Radiation Dose DLP 902 mGy-cm FINDINGS: BRAIN PARENCHYMA: There are normal neff-white interfaces, sulci and gyri. There is no mass effect or midline shift. There is no extra-axial fluid collection, intraventricular or intraparenchymal hemorrhage. The sella and pineal regions are normal. The skull base, cerebellum and brainstem are normal. VENTRICLES: The ventricles are normal in size and configuration. The basilar cisterns are normal. ORBITS, MASTOIDS AND PARANASAL SINUSES: The visualized orbits are normal. The paranasal sinuses are normal. The mastoid air cells are clear. SKULL: There are no osseous abnormalities. If there is further concern for intracranial pathology or acute stroke, MRI of the brain may be performed for complete assessment. IMPRESSION: 1No mass, hemorrhage or subacute stroke. SL: [id number] 09/09/2018 - - Read by: Bg Monge MD Dictated Date/time: 09/09/18 09:10 Electronically Signed by: Bg Monge MD 09/09/18 09:14 FINAL REPORT [facility] CARDIAC ENZYMES CK MB Index null 0.0 - 2.5 08/30/2018 [facility] CARDIAC ENZYMES Troponin-I null 0.00 - 0.40 08/30/2018 [facility] CARDIAC ENZYMES CK MB null 0.5 - 3.6 08/30/2018 [facility] CARDIAC ENZYMES Total CK 72 unit/L 12 - 191 08/30/2018 [facility] CHEM PANEL eGFR 71 mL/min/1.73m2 08/30/2018 Result Comment: The eGFR is calculated using the CKD-EPI formula. In most young, healthy individuals the eGFR will be >90 mL/min/1.73m2. The eGFR declines with age. An eGFR of 60-89 may be normal in some populations, particularly the elderly, for whom the CKD-EPI formula has not been extensively validated. Use of the eGFR is not recommended in the following populations: Individuals with unstable creatinine concentrations, including patients and those with serious co-morbid conditions. Patients with extremes in muscle mass or diet. The data above are obtained from the National Kidney Disease Education Program (NKDEP) which additionally recommends that when the eGFR is used in patients with extremes of body mass index for purposes of drug dosing, the eGFR should be multiplied by the estimated BMI. [facility] CHEM PANEL Globulin 3.2 g/dL 2.7 - 4.2 08/30/2018 [facility] CHEM PANEL A/G Ratio 1.1 0.7 - 1.6 08/30/2018 [facility] CHEM PANEL B/C Ratio 17 6 - 25 08/30/2018 [facility] CHEM PANEL Albumin Lvl 3.6 g/dL 3.5 - 5.0 08/30/2018 [facility] CHEM PANEL ALT 28 unit/L 0 - 65 08/30/2018 [facility] CHEM PANEL AST 17 unit/L 0 - 37 08/30/2018 [facility] CHEM PANEL CO2 28 meq/L 24 - 32 08/30/2018 [facility] CHEM PANEL Calcium Lvl 8.5 mg/dL 8.5 - 10.5 08/30/2018 [facility] CHEM PANEL Bili Total 0.2 mg/dL 0.2 - 1.3 08/30/2018 [facility] CHEM PANEL Alk Phos 96 unit/L 39 - 136 08/30/2018 [facility] CHEM PANEL AGAP 5.1 meq/L 10.0 - 20.0 08/30/2018 [facility] CHEM PANEL Total Protein 6.8 g/dL 6.4 - 8.4 08/30/2018 [facility] CHEM PANEL Sodium Lvl 136 meq/L 135 - 145 08/30/2018 [facility] CHEM PANEL Potassium Lvl 4.1 meq/L 3.5 - 5.1 08/30/2018 [facility] CHEM PANEL Chloride Lvl 107 meq/L 95 - 109 08/30/2018 [facility] CHEM PANEL Glucose Lvl 82 mg/dL 70 - 99 08/30/2018 [facility] CHEM PANEL BUN 17 mg/dL 7 - 22 08/30/2018 [facility] CHEM PANEL Creatinine Lvl 1.00 mg/dL 0.50 - 1.40 08/30/2018 [facility] ENDOCRINOLOGY hCG Tot null 08/30/2018 [facility] Lymphocytes # 1.6 K/CMM 1.0 - 5.5 08/30/2018 [facility] HEMATOLOGY Neutrophils # 3.5 K/CMM 1.5 - 8.1 08/30/2018 [facility] Basophils # 0.1 K/CMM 0.0 - 0.2 08/30/2018 [facility] HEMATOLOGY Eosinophils # 0.1 K/CMM 0.0 - 0.5 08/30/2018 [facility] Monocytes # 0.3 K/CMM 0.0 - 0.8 08/30/2018 [facility] Basophils 1.2 % 0.0 - 1.0 08/30/2018 [facility] Eosinophils 2.0 % 0.0 - 4.0 08/30/2018 [facility] Monocytes 4.8 % 2.0 - 12.0 08/30/2018 [facility] Segs 62.7 % 45.0 - 75.0 08/30/2018 [facility] Lymphocytes 29.3 % 20.0 - 40.0 08/30/2018 [facility] MPV 7.5 fL 7.4 - 10.4 08/30/2018 [facility] Platelet 298 K/CMM 133 - 450 08/30/2018 [facility] RDW 14.8 % 11.5 - 14.5 08/30/2018 [facility] MCH 29.5 pg 27.0 - 31.0 08/30/2018 [facility] RBC 4.37 M/CMM 4.20 - 5.40 08/30/2018 [facility] MCV 86.7 fL 80.0 - 98.0 08/30/2018 [facility] MCHC 34.1 g/dL 32.0 - 36.0 08/30/2018 [facility] Hgb 12.9 g/dL 12.0 - 16.0 08/30/2018 [facility] Hct 37.9 % 36.0 - 48.0 08/30/2018 [facility] WBC 5.6 K/CMM 3.7 - 10.4 08/30/2018 [facility] Chest 1view DX Chest 1view DX Patient Name: ANGELA ESPINOSA : 1975; Age: 42 years Female MR: [id number] Study: Chest 1view DX Order Time: 08/30/2018 10:10 CDT CLINICAL INDICATION: Chest pain - CP COMPARISON: Chest radiograph on 08/26/2018 FINDINGS: Lines: None. Lungs: Subsegmental atelectasis within the right lower lung. No significant effusion or pneumothorax. Mediastinum: The cardiac silhouette is within normal limits of size. Midline trachea. Bones and soft tissues: No acute abnormalities. IMPRESSION: No acute cardiopulmonary abnormalities. SL: [id number] 08/30/2018 - - Read by: Maranda Esposito MD Dictated Date/time: 08/30/18 10:52 Electronically Signed by: Maranda Esposito MD 08/30/18 10:52 FINAL REPORT [facility] DRUG SCREEN U Elaine Scr Negative *NA* (08/26/18 9:29 AM) Negative 08/26/2018 [facility] DRUG SCREEN U Benzodiaz Scr Positive *ABN* (08/26/18 9:29 AM) Negative 08/26/2018 [facility] DRUG SCREEN U Cocaine Scr Negative *NA* (08/26/18 9:29 AM) Negative 08/26/2018 [facility] DRUG SCREEN U Cannab Scr Positive *ABN* (08/26/18 9:29 AM) Negative 08/26/2018 [facility] DRUG SCREEN U Opiate Scr Positive *ABN* (08/26/18 9:29 AM) Negative 08/26/2018 [facility] DRUG SCREEN U Phencyclidine Scr Negative *NA* (08/26/18 9:29 AM) Negative 08/26/2018 [facility] DRUG SCREEN UDS Note See Note (08/26/18 9:29 AM) 08/26/2018 [facility] DRUG SCREEN U Amph Scr Negative *NA* (08/26/18 9:29 AM) Negative 08/26/2018 [facility] CARDIAC ENZYMES CK MB Index null 0.0 - 2.5 08/26/2018 [facility] CARDIAC ENZYMES Troponin-I null 0.00 - 0.40 08/26/2018 [facility] CARDIAC ENZYMES CK MB null 0.5 - 3.6 08/26/2018 [facility] CARDIAC ENZYMES Total CK 72 unit/L 12 - 191 08/26/2018 [facility] CHEM PANEL eGFR 70 mL/min/1.73m2 08/26/2018 Result Comment: The eGFR is calculated using the CKD-EPI formula. In most young, healthy individuals the eGFR will be >90 mL/min/1.73m2. The eGFR declines with age. An eGFR of 60-89 may be normal in some populations, particularly the elderly, for whom the CKD-EPI formula has not been extensively validated. Use of the eGFR is not recommended in the following populations: Individuals with unstable creatinine concentrations, including patients and those with serious co-morbid conditions. Patients with extremes in muscle mass or diet. The data above are obtained from the National Kidney Disease Education Program (NKDEP) which additionally recommends that when the eGFR is used in patients with extremes of body mass index for purposes of drug dosing, the eGFR should be multiplied by the estimated BMI. [facility] CHEM PANEL Sodium Lvl 141 meq/L 135 - 145 08/26/2018 [facility] CHEM PANEL Potassium Lvl 4.1 meq/L 3.5 - 5.1 08/26/2018 [facility] CHEM PANEL Chloride Lvl 111 meq/L 95 - 109 08/26/2018 [facility] CHEM PANEL Creatinine Lvl 1.01 mg/dL 0.50 - 1.40 08/26/2018 [facility] CHEM PANEL Glucose Lvl 111 mg/dL 70 - 99 08/26/2018 [facility] CHEM PANEL BUN 14 mg/dL 7 - 22 08/26/2018 [facility] CHEM PANEL Bili Total 0.3 mg/dL 0.2 - 1.3 08/26/2018 [facility] CHEM PANEL AST 17 unit/L 0 - 37 08/26/2018 [facility] CHEM PANEL Alk Phos 94 unit/L 39 - 136 08/26/2018 [facility] CHEM PANEL Calcium Lvl 8.6 mg/dL 8.5 - 10.5 08/26/2018 [facility] CHEM PANEL CO2 24 meq/L 24 - 32 08/26/2018 [facility] CHEM PANEL Albumin Lvl 3.3 g/dL 3.5 - 5.0 08/26/2018 [facility] CHEM PANEL Total Protein 6.4 g/dL 6.4 - 8.4 08/26/2018 [facility] CHEM PANEL ALT 29 unit/L 0 - 65 08/26/2018 [facility] CHEM PANEL A/G Ratio 1.1 0.7 - 1.6 08/26/2018 [facility] CHEM PANEL Globulin 3.1 g/dL 2.7 - 4.2 08/26/2018 [facility] CHEM PANEL B/C Ratio 14 6 - 25 08/26/2018 [facility] CHEM PANEL AGAP 10.1 meq/L 10.0 - 20.0 08/26/2018 [facility] Basophils # 0.1 K/CMM 0.0 - 0.2 08/26/2018 [facility] Eosinophils # 0.1 K/CMM 0.0 - 0.5 08/26/2018 [facility] Lymphocytes 20.2 % 20.0 - 40.0 08/26/2018 [facility] Eosinophils 1.2 % 0.0 - 4.0 08/26/2018 [facility] Monocytes 5.1 % 2.0 - 12.0 08/26/2018 [facility] Basophils 0.8 % 0.0 - 1.0 08/26/2018 [facility] Neutrophils # 5.5 K/CMM 1.5 - 8.1 08/26/2018 [facility] Lymphocytes # 1.5 K/CMM 1.0 - 5.5 08/26/2018 [facility] Monocytes # 0.4 K/CMM 0.0 - 0.8 08/26/2018 [facility] Segs 72.7 % 45.0 - 75.0 08/26/2018 [facility] Plt Morph Normal (08/26/18 8:34 AM) 08/26/2018 [facility] RBC Morph Normal (08/26/18 8:34 AM) 08/26/2018 [facility] INR 1.01 0.85 - 1.17 08/26/2018 [facility] PTT 24.2 s 22.9 - 35.8 08/26/2018 [facility] PT 13.1 s 12.0 - 14.7 08/26/2018 [facility] MPV 8.0 fL 7.4 - 10.4 08/26/2018 [facility] Platelet 241 K/CMM 133 - 450 08/26/2018 [facility] WBC 7.6 K/CMM 3.7 - 10.4 08/26/2018 [facility] RBC 4.12 M/CMM 4.20 - 5.40 08/26/2018 [facility] MCH 29.8 pg 27.0 - 31.0 08/26/2018 [facility] MCHC 34.2 g/dL 32.0 - 36.0 08/26/2018 [facility] HEMATOLOGY Hgb 12.3 g/dL 12.0 - 16.0 08/26/2018 [facility] HEMATOLOGY RDW 14.8 % 11.5 - 14.5 08/26/2018 [facility] HEMATOLOGY Hct 35.9 % 36.0 - 48.0 08/26/2018 [facility] MCV 87.1 fL 80.0 - 98.0 08/26/2018 [facility] Chest 2 views DX Chest 2 views DX Patient Name: ANGELA ESPINOSA : 1975; Age: 42 years y/o Female MR: [id number] Study: Chest 2 views DX 08/26/2018 8:15 CDT Ordering Physician: Clinical Indication: Cough and fever - CP; Comparison: 08/21/2018 Chest 2 views Mild subsegmental atelectasis within both lungs, appearing similar to previous. There is no new infiltrate, pleural effusion or pneumothorax. Cardiomediastinal silhouette normal. No new bony abnormality. IMPRESSION: Stable subsegmental atelectasis within both lungs. No new infiltrate or pleural effusion. SL: [id number] 08/26/2018 - - Read by: Noah Regan MD Dictated Date/time: 08/26/18 08:54 Electronically Signed by: Noah Regan MD 08/26/18 08:55 FINAL REPORT [facility] CARDIAC ENZYMES Total CK 41 unit/L 12 - 191 08/21/2018 [facility] CARDIAC ENZYMES Troponin-I null 0.00 - 0.40 08/21/2018 [facility] CHEM PANEL eGFR 72 mL/min/1.73m2 08/21/2018 Result Comment: The eGFR is calculated using the CKD-EPI formula. In most young, healthy individuals the eGFR will be >90 mL/min/1.73m2. The eGFR declines with age. An eGFR of 60-89 may be normal in some populations, particularly the elderly, for whom the CKD-EPI formula has not been extensively validated. Use of the eGFR is not recommended in the following populations: Individuals with unstable creatinine concentrations, including patients and those with serious co-morbid conditions. Patients with extremes in muscle mass or diet. The data above are obtained from the National Kidney Disease Education Program (NKDEP) which additionally recommends that when the eGFR is used in patients with extremes of body mass index for purposes of drug dosing, the eGFR should be multiplied by the estimated BMI. [facility] CHEM PANEL CO2 24 meq/L 24 - 32 08/21/2018 [facility] CHEM PANEL Calcium Lvl 8.6 mg/dL 8.5 - 10.5 08/21/2018 [facility] CHEM PANEL Glucose Lvl 99 mg/dL 70 - 99 08/21/2018 [facility] CHEM PANEL Potassium Lvl 3.9 meq/L 3.5 - 5.1 08/21/2018 [facility] CHEM PANEL Chloride Lvl 110 meq/L 95 - 109 08/21/2018 [facility] CHEM PANEL BUN 12 mg/dL 7 - 22 08/21/2018 [facility] CHEM PANEL Creatinine Lvl 0.98 mg/dL 0.50 - 1.40 08/21/2018 [facility] CHEM PANEL Sodium Lvl 137 meq/L 135 - 145 08/21/2018 [facility] CHEM PANEL AGAP 6.9 meq/L 10.0 - 20.0 08/21/2018 [facility] Monocytes # 0.5 K/CMM 0.0 - 0.8 08/21/2018 [facility] HEMATOLOGY Neutrophils # 4.7 K/CMM 1.5 - 8.1 08/21/2018 [facility] Lymphocytes # 1.5 K/CMM 1.0 - 5.5 08/21/2018 [facility] HEMATOLOGY Basophils # 0.1 K/CMM 0.0 - 0.2 08/21/2018 [facility] Eosinophils # 0.1 K/CMM 0.0 - 0.5 08/21/2018 [facility] Basophils 1.3 % 0.0 - 1.0 08/21/2018 [facility] Eosinophils 1.9 % 0.0 - 4.0 08/21/2018 [facility] HEMATOLOGY Segs 68.4 % 45.0 - 75.0 08/21/2018 [facility] Monocytes 7.0 % 2.0 - 12.0 08/21/2018 [facility] Lymphocytes 21.4 % 20.0 - 40.0 08/21/2018 [facility] MPV 7.4 fL 7.4 - 10.4 08/21/2018 [facility] MCV 86.5 fL 80.0 - 98.0 08/21/2018 [facility] MCHC 34.3 g/dL 32.0 - 36.0 08/21/2018 [facility] MCH 29.7 pg 27.0 - 31.0 08/21/2018 [facility] Platelet 269 K/CMM 133 - 450 08/21/2018 [facility] RDW 14.8 % 11.5 - 14.5 08/21/2018 [facility] RBC 4.50 M/CMM 4.20 - 5.40 08/21/2018 [facility] Hgb 13.4 g/dL 12.0 - 16.0 08/21/2018 [facility] Hct 38.9 % 36.0 - 48.0 08/21/2018 [facility] WBC 6.8 K/CMM 3.7 - 10.4 08/21/2018 [facility] Chest 1view DX Chest 1view DX Clinical Indication: - sob. Comparison: 05/11/2018. TECHNIQUE: AP 1 view chest radiograph was performed. FINDINGS: The cardiac silhouette is normal in size. The pulmonary vasculature is normal in caliber. The aorta is unremarkable. There is mild linear atelectasis/scarring right midlung and left lower lung. No definitive acute airspace consolidation. No pleural effusion or pneumothorax. There is no acute osseous abnormality. IMPRESSION: Scattered atelectasis. No definitive acute airspace consolidation. SL: [id number] 08/21/2018 - - Read by: Cholo Maurer MD Dictated Date/time: 08/21/18 08:59 Electronically Signed by: Cholo Maurer MD 08/21/18 09:00 FINAL REPORT [facility] CHEM PANEL Globulin 3.0 g/dL 2.7 - 4.2 08/06/2018 [facility] CHEM PANEL A/G Ratio 1.0 0.7 - 1.6 08/06/2018 [facility] CHEM PANEL B/C Ratio 10 6 - 25 08/06/2018 [facility] CHEM PANEL AGAP 8.2 meq/L 10.0 - 20.0 08/06/2018 [facility] CHEM PANEL eGFR 84 mL/min/1.73m2 08/06/2018 Result Comment: The eGFR is calculated using the CKD-EPI formula. In most young, healthy individuals the eGFR will be >90 mL/min/1.73m2. The eGFR declines with age. An eGFR of 60-89 may be normal in some populations, particularly the elderly, for whom the CKD-EPI formula has not been extensively validated. Use of the eGFR is not recommended in the following populations: Individuals with unstable creatinine concentrations, including patients and those with serious co-morbid conditions. Patients with extremes in muscle mass or diet. The data above are obtained from the National Kidney Disease Education Program (NKDEP) which additionally recommends that when the eGFR is used in patients with extremes of body mass index for purposes of drug dosing, the eGFR should be multiplied by the estimated BMI. [facility] CHEM PANEL Bili Total 0.5 mg/dL 0.2 - 1.3 08/06/2018 [facility] CHEM PANEL Alk Phos 94 unit/L 39 - 136 08/06/2018 [facility] CHEM PANEL Potassium Lvl 4.2 meq/L 3.5 - 5.1 08/06/2018 [facility] CHEM PANEL Chloride Lvl 112 meq/L 95 - 109 08/06/2018 [facility] CHEM PANEL Sodium Lvl 143 meq/L 135 - 145 08/06/2018 [facility] CHEM PANEL AST 20 unit/L 0 - 37 08/06/2018 [facility] CHEM PANEL Albumin Lvl 3.1 g/dL 3.5 - 5.0 08/06/2018 [facility] CHEM PANEL ALT 33 unit/L 0 - 65 08/06/2018 [facility] CHEM PANEL Calcium Lvl 8.3 mg/dL 8.5 - 10.5 08/06/2018 [facility] CHEM PANEL Total Protein 6.1 g/dL 6.4 - 8.4 08/06/2018 [facility] CHEM PANEL CO2 27 meq/L 24 - 32 08/06/2018 [facility] CHEM PANEL Creatinine Lvl 0.86 mg/dL 0.50 - 1.40 08/06/2018 [facility] CHEM PANEL BUN 9 mg/dL 7 - 22 08/06/2018 [facility] CHEM PANEL Glucose Lvl 95 mg/dL 70 - 99 08/06/2018 [facility] CHEM PANEL Lipase Lvl 182 unit/L 73 - 393 08/06/2018 [facility] RDW 14.1 % 11.5 - 14.5 08/06/2018 [facility] MCHC 33.9 g/dL 32.0 - 36.0 08/06/2018 [facility] MPV 7.1 fL 7.4 - 10.4 08/06/2018 [facility] Platelet 292 K/CMM 133 - 450 08/06/2018 [facility] Hgb 12.1 g/dL 12.0 - 16.0 08/06/2018 [facility] MCH 29.2 pg 27.0 - 31.0 08/06/2018 [facility] HEMATOLOGY MCV 86.2 fL 80.0 - 98.0 08/06/2018 [facility] HEMATOLOGY Hct 35.8 % 36.0 - 48.0 08/06/2018 [facility] HEMATOLOGY RBC 4.15 M/CMM 4.20 - 5.40 08/06/2018 [facility] HEMATOLOGY WBC 5.3 K/CMM 3.7 - 10.4 08/06/2018 [facility] HEMATOLOGY Segs 69.5 % 45.0 - 75.0 08/06/2018 [facility] HEMATOLOGY Lymphocytes 22.9 % 20.0 - 40.0 08/06/2018 [facility] HEMATOLOGY Monocytes 4.4 % 2.0 - 12.0 08/06/2018 [facility] Lymphocytes # 1.2 K/CMM 1.0 - 5.5 08/06/2018 [facility] HEMATOLOGY Neutrophils # 3.7 K/CMM 1.5 - 8.1 08/06/2018 [facility] HEMATOLOGY Basophils 1.1 % 0.0 - 1.0 08/06/2018 [facility] HEMATOLOGY Eosinophils 2.1 % 0.0 - 4.0 08/06/2018 [facility] HEMATOLOGY Basophils # 0.1 K/CMM 0.0 - 0.2 08/06/2018 [facility] HEMATOLOGY Eosinophils # 0.1 K/CMM 0.0 - 0.5 08/06/2018 [facility] HEMATOLOGY Monocytes # 0.2 K/CMM 0.0 - 0.8 08/06/2018 [facility] URINE AND STOOL UA WBC null 0 - 5 08/06/2018 [facility] URINE AND STOOL UA RBC 1 /HPF 0 - 2 08/06/2018 [facility] URINE AND STOOL UA Glucose Negative *NA* (08/06/18 9:30 AM) Negative 08/06/2018 [facility] URINE AND STOOL UA Protein Negative (08/06/18 9:30 AM) Negative 08/06/2018 [facility] URINE AND STOOL UA Bili Negative *NA* (08/06/18 9:30 AM) Negative 08/06/2018 [facility] URINE AND STOOL UA Ketones Negative *NA* (08/06/18 9:30 AM) Negative 08/06/2018 [facility] URINE AND STOOL UA pH 5.0 5.0 - 8.0 08/06/2018 [facility] URINE AND STOOL UA Blood Negative (08/06/18 9:30 AM) Negative 08/06/2018 [facility] URINE AND STOOL UA Sq Epi Moderate /LPF Few /LPF 08/06/2018 [facility] URINE AND STOOL UA Leuk Est Negative (08/06/18 9:30 AM) Negative 08/06/2018 [facility] URINE AND STOOL UA Nitrite Negative (08/06/18 9:30 AM) Negative 08/06/2018 [facility] URINE AND STOOL UA Urobilinogen <=1.0 mg/dL 0.1 - 1.0 08/06/2018 [facility] URINE AND STOOL UA Spec Grav 1.004 <=1.030 08/06/2018 [facility] URINE AND STOOL UA Turbidity Clear (08/06/18 9:30 AM) Clear 08/06/2018 [facility] URINE AND STOOL UA Color Ltyellow 08/06/2018 [facility] Blood erythrocytes automated count (number/volume) 4.19 3.6 - 5.1 08/05/2018 [facility] Blood hemoglobin measurement (moles/volume) 12.1 12.0 - 16.0 08/05/2018 [facility] Automated blood hematocrit (volume fraction) 36.4 34.2 - 44.1 08/05/2018 [facility] Automated erythrocyte mean corpuscular volume 86.9 81 - 99 08/05/2018 [facility] Automated erythrocyte mean corpuscular hemoglobin (mass per erythrocyte) 28.9 28 - 32 08/05/2018 [facility] Automated erythrocyte mean corpuscular hemoglobin concentration measurement (mass/volume) 33.2 31 - 35 08/05/2018 [facility] RDW BldCo-Rto 13.8 11.7 - 14.4 08/05/2018 [facility] Automated blood platelet count (count/volume) 270 140 - 360 08/05/2018 [facility] Automated blood segmented neutrophil count as percentage of total leukocytes 65.9 38.7 - 80.0 08/05/2018 [facility] Automated blood lymphocyte count as percentage ot total leukocytes 26.1 18.0 - 39.1 08/05/2018 [facility] Automated blood monocyte count as percentage of total leukocytes 5.5 4.4 - 11.3 08/05/2018 [facility] Automated blood eosinophil count as percentage of total leukocytes 1.9 0.0 - 6.0 08/05/2018 [facility] Automated blood basophil count as percentage of total leukocytes 0.6 0.0 - 1.0 08/05/2018 [facility] IM GRANULOCYTES % 0.0 0.0 - 1.0 08/05/2018 [facility] Automated blood neutrophil count 3.1 2.1 - 6.9 08/05/2018 [facility] Blood lymphocytes count (number/volume) 1.2 1.0 - 3.2 08/05/2018 [facility] Blood monocytes automated count (number/volume) 0.3 0.2 - 0.8 08/05/2018 [facility] Automated blood eosinophil count 0.1 0.0 - 0.4 08/05/2018 [facility] Automated blood basophil count (count/volume) 0.0 0.0 - 0.1 08/05/2018 [facility] Absolute Immature Granulocyte (auto 0 0 - 0.1 08/05/2018 [facility] Serum or plasma sodium measurement (moles/volume) 135 136 - 145 08/05/2018 [facility] Serum or plasma albumin/globulin mass ratio 1.1 0.8 - 2.0 08/05/2018 [facility] Serum or plasma alkaline phosphatase measurement (enzymatic activity/volume) 83 40 - 150 08/05/2018 [facility] Serum or plasma lipase measurement (enzymatic activity/volume) 29 8 - 78 08/05/2018 [facility] Serum or plasma carbon dioxide, total measurement (moles/volume) 22 22 - 29 08/05/2018 [facility] Serum or plasma anion gap 10.5 8 - 16 08/05/2018 [facility] Serum or plasma urea nitrogen measurement (mass/volume) 7 7 - 26 08/05/2018 [facility] Serum or plasma creatinine measurement (mass/volume) 0.83 0.57 - 1.11 08/05/2018 [facility] Serum or plasma urea nitrogen/creatinine mass ratio 8 6 - 25 08/05/2018 [facility] Estimated glomerular filtration rate (GFR) determination > 60 60 08/05/2018 [facility] Glucose measurement 114 74 - 118 08/05/2018 [facility] Serum or plasma calcium measurement (mass/volume) 8.6 8.4 - 10.2 08/05/2018 [facility] Serum or plasma total bilirubin measurement (mass/volume) 0.2 0.2 - 1.2 08/05/2018 [facility] Aspartate Amino Transf (AST/SGOT) 16 5 - 34 08/05/2018 [facility] Serum or plasma alanine aminotransferase measurement (enzymatic activity/volume) 21 0 - 55 08/05/2018 [facility] Serum or plasma protein measurement (mass/volume) 6.0 6.5 - 8.1 08/05/2018 [facility] Serum or plasma albumin measurement (mass/volume) 3.2 3.5 - 5.0 08/05/2018 [facility] Plasma globulin measurement (mass/volume) 2.8 2.3 - 3.5 08/05/2018 [facility] Serum or plasma albumin/globulin mass ratio 1.1 0.8 - 2.0 08/05/2018 [facility] Serum or plasma alkaline phosphatase measurement (enzymatic activity/volume) 83 40 - 150 08/05/2018 [facility] Serum or plasma lipase measurement (enzymatic activity/volume) 29 8 - 78 08/05/2018 [facility] Blood leukocytes automated count (number/volume) 4.72 4.8 - 10.8 08/05/2018 [facility] Serum or plasma potassium measurement (moles/volume) 3.5 3.5 - 5.1 08/05/2018 [facility] Serum or plasma chloride measurement (moles/volume) 106 98 - 107 08/05/2018 [facility] Serum or plasma carbon dioxide, total measurement (moles/volume) 22 22 - 29 08/05/2018 [facility] Serum or plasma anion gap 10.5 8 - 16 08/05/2018 [facility] Serum or plasma urea nitrogen measurement (mass/volume) 7 7 - 26 08/05/2018 [facility] Serum or plasma creatinine measurement (mass/volume) 0.83 0.57 - 1.11 08/05/2018 [facility] Serum or plasma urea nitrogen/creatinine mass ratio 8 6 - 25 08/05/2018 [facility] Estimated glomerular filtration rate (GFR) determination > 60 60 08/05/2018 [facility] Glucose measurement 114 74 - 118 08/05/2018 [facility] Serum or plasma calcium measurement (mass/volume) 8.6 8.4 - 10.2 08/05/2018 [facility] Serum or plasma total bilirubin measurement (mass/volume) 0.2 0.2 - 1.2 08/05/2018 [facility] Aspartate Amino Transf (AST/SGOT) 16 5 - 34 08/05/2018 [facility] Serum or plasma alanine aminotransferase measurement (enzymatic activity/volume) 21 0 - 55 08/05/2018 [facility] Serum or plasma protein measurement (mass/volume) 6.0 6.5 - 8.1 08/05/2018 [facility] Serum or plasma albumin measurement (mass/volume) 3.2 3.5 - 5.0 08/05/2018 [facility] Plasma globulin measurement (mass/volume) 2.8 2.3 - 3.5 08/05/2018 [facility] CEFAZOLIN:SUSC:PT:ISOLATE:ORDQN:KATHI Culture: Urine 50,000 - 100,000 CFU/mL Escherichia coli 08/04/2018 [facility] CEFAZOLIN:SUSC:PT:ISOLATE:ORDQN:KATHI Escherichia coli Escherichia coli 08/04/2018 [facility] CHEM PANEL Lipase Lvl 136 unit/L 73 - 393 08/04/2018 [facility] CHEM PANEL A/G Ratio 1.0 0.7 - 1.6 08/04/2018 [facility] CHEM PANEL Globulin 3.3 g/dL 2.7 - 4.2 08/04/2018 [facility] CHEM PANEL AGAP 10.9 meq/L 10.0 - 20.0 08/04/2018 [facility] CHEM PANEL B/C Ratio 14 6 - 25 08/04/2018 [facility] CHEM PANEL eGFR 73 mL/min/1.73m2 08/04/2018 Result Comment: The eGFR is calculated using the CKD-EPI formula. In most young, healthy individuals the eGFR will be >90 mL/min/1.73m2. The eGFR declines with age. An eGFR of 60-89 may be normal in some populations, particularly the elderly, for whom the CKD-EPI formula has not been extensively validated. Use of the eGFR is not recommended in the following populations: Individuals with unstable creatinine concentrations, including patients and those with serious co-morbid conditions. Patients with extremes in muscle mass or diet. The data above are obtained from the National Kidney Disease Education Program (NKDEP) which additionally recommends that when the eGFR is used in patients with extremes of body mass index for purposes of drug dosing, the eGFR should be multiplied by the estimated BMI. [facility] CHEM PANEL Bili Total 0.3 mg/dL 0.2 - 1.3 08/04/2018 [facility] CHEM PANEL Albumin Lvl 3.4 g/dL 3.5 - 5.0 08/04/2018 [facility] CHEM PANEL AST 16 unit/L 0 - 37 08/04/2018 [facility] CHEM PANEL ALT 27 unit/L 0 - 65 08/04/2018 [facility] CHEM PANEL Alk Phos 99 unit/L 39 - 136 08/04/2018 [facility] CHEM PANEL Creatinine Lvl 0.98 mg/dL 0.50 - 1.40 08/04/2018 [facility] CHEM PANEL BUN 14 mg/dL 7 - 22 08/04/2018 [facility] CHEM PANEL Glucose Lvl 110 mg/dL 70 - 99 08/04/2018 [facility] CHEM PANEL Total Protein 6.7 g/dL 6.4 - 8.4 08/04/2018 [facility] CHEM PANEL Calcium Lvl 8.1 mg/dL 8.5 - 10.5 08/04/2018 [facility] CHEM PANEL CO2 23 meq/L 24 - 32 08/04/2018 [facility] CHEM PANEL Chloride Lvl 111 meq/L 95 - 109 08/04/2018 [facility] CHEM PANEL Potassium Lvl 3.9 meq/L 3.5 - 5.1 08/04/2018 [facility] CHEM PANEL Sodium Lvl 141 meq/L 135 - 145 08/04/2018 [facility] MCH 30.0 pg 27.0 - 31.0 08/04/2018 [facility] Platelet 281 K/CMM 133 - 450 08/04/2018 [facility] RDW 14.1 % 11.5 - 14.5 08/04/2018 [facility] MCV 86.3 fL 80.0 - 98.0 08/04/2018 [facility] MCHC 34.7 g/dL 32.0 - 36.0 08/04/2018 [facility] MPV 7.0 fL 7.4 - 10.4 08/04/2018 [facility] Hgb 12.8 g/dL 12.0 - 16.0 08/04/2018 [facility] Hct 37.0 % 36.0 - 48.0 08/04/2018 [facility] RBC 4.29 M/CMM 4.20 - 5.40 08/04/2018 [facility] WBC 5.4 K/CMM 3.7 - 10.4 08/04/2018 [facility] Basophils # 0.1 K/CMM 0.0 - 0.2 08/04/2018 [facility] Eosinophils # 0.1 K/CMM 0.0 - 0.5 08/04/2018 [facility] Segs 63.0 % 45.0 - 75.0 08/04/2018 [facility] Monocytes 5.1 % 2.0 - 12.0 08/04/2018 [facility] Lymphocytes 28.8 % 20.0 - 40.0 08/04/2018 [facility] Basophils 1.1 % 0.0 - 1.0 08/04/2018 [facility] Eosinophils 2.0 % 0.0 - 4.0 08/04/2018 [facility] Lymphocytes # 1.6 K/CMM 1.0 - 5.5 08/04/2018 [facility] Neutrophils # 3.4 K/CMM 1.5 - 8.1 08/04/2018 [facility] Monocytes # 0.3 K/CMM 0.0 - 0.8 08/04/2018 [facility] URINE AND STOOL UA Sq Epi Moderate /LPF Few /LPF 08/04/2018 [facility] URINE AND STOOL UA Mucus Few /LPF None Seen /LPF 08/04/2018 [facility] URINE AND STOOL UA Hyal Cast 1 /LPF 0 - 2 08/04/2018 [facility] URINE AND STOOL UA Leuk Est Moderate *ABN* (08/04/18 8:11 AM) Negative 08/04/2018 [facility] URINE AND STOOL UA Color Yellow *NA* (08/04/18 8:11 AM) Yellow 08/04/2018 [facility] URINE AND STOOL UA Turbidity Slight *ABN* (08/04/18 8:11 AM) Clear 08/04/2018 [facility] URINE AND STOOL UA Blood Negative (08/04/18 8:11 AM) Negative 08/04/2018 [facility] URINE AND STOOL UA Bili Negative *NA* (08/04/18 8:11 AM) Negative 08/04/2018 [facility] URINE AND STOOL UA Glucose Negative *NA* (08/04/18 8:11 AM) Negative 08/04/2018 [facility] URINE AND STOOL UA Ketones Negative *NA* (08/04/18 8:11 AM) Negative 08/04/2018 [facility] URINE AND STOOL UA Spec Grav 1.011 <=1.030 08/04/2018 [facility] URINE AND STOOL UA pH 6.0 5.0 - 8.0 08/04/2018 [facility] URINE AND STOOL UA Protein Negative (08/04/18 8:11 AM) Negative 08/04/2018 [facility] URINE AND STOOL UA Bacteria Many /HPF None Seen /HPF 08/04/2018 [facility] URINE AND STOOL UA RBC 2 /HPF 0 - 2 08/04/2018 [facility] URINE AND STOOL UA WBC 45 /HPF 0 - 5 08/04/2018 [facility] URINE AND STOOL UA Urobilinogen <=1.0 mg/dL 0.1 - 1.0 08/04/2018 [facility] URINE AND STOOL UA Nitrite Positive *ABN* (08/04/18 8:11 AM) Negative 08/04/2018 [facility] Renal Stone CT Renal Stone CT Patient Name: ANGELA ESPINOSA : 1975 Age: 42 years, Female MR: [id number] Study: Renal 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 Indication: Abdominal pain. Left flank pain. Clinical information: Abdominal pain, acute - renal stone protocol. Comparison: CT abdomen and pelvis 06/11/2018 Technique: The abdomen and pelvis were scanned utilizing a multidetector helical scanner from the lung bases through the level of the pubic symphysis. No intravenous contrast was administered. Coronal and sagittal reconstructions were submitted for interpretation. The lack of intravenous contrast limits the evaluation of the solid organs, vasculature, and possible lymphadenopathy. Protocol: General survey without contrast IV contrast: No intravenous contrast was administered as per physician request. Oral contrast: None Complications: None Radiation dose: Total exam DLP 1292 mGy-cm CT imaging performed at this location utilizes radiation dose optimization techniques which include one or more of the following: -Automated exposure control -Adjustment of the mA and/or kV according to patient size -Use of iterative reconstruction technique Findings: Lines/tubes: None. Lower thorax: Normal parenchyma. No pleural effusion. No pneumothorax. Liver: Normal parenchyma. No focal mass. No hepatomegaly. Biliary: Cholecystectomy. No intrahepatic duct dilation. Normal common bile duct. Spleen: No focal mass. No splenomegaly. Pancreas: No focal mass. Normal pancreatic duct. No peripancreatic inflammatory changes. Adrenal glands: No adrenal nodules. Kidneys: Multiple cysts are present bilaterally. Lobulated appearance of the bilateral kidneys. No perinephric soft tissue inflammatory changes. Collecting system: Bilateral nonobstructing calculi. No obstructing calculi. No hydronephrosis. Bladder: Normal urinary bladder. Reproductive organs: Hysterectomy. Trace free fluid is present in the pelvis. Stomach: Normal gastric distention. No bowel wall thickening. Small bowel: No bowel wall thickening. No air-fluid levels. No pneumoperitoneum. Colon: The colon is normal. The appendix is normal. A moderate amount of retained feces limits intraluminal evaluation of the colon. Peritoneum/retroperitoneum: No ascites. No drainable fluid collection. Lymph nodes: No lymphadenopathy. Soft tissues: No focal abnormality. The fascia of the abdominal wall is intact. Postoperative changes of ventral hernia repair. Vessels: No focal abnormality. Retroaortic left renal vein. Limited evaluation. Bones: No acute osseous abnormality. IMPRESSION: No acute abnormality of the abdomen and pelvis. Bilateral nonobstructing nephrolithiasis. SL: [id number] 08/04/2018 - - Read by: Donnell Najera MD Dictated Date/time: 08/04/18 08:36 Electronically Signed by: Donnell Najera MD 08/04/18 09:03 FINAL REPORT [facility] Blood leukocytes automated count (number/volume) 4.92 4.8 - 10.8 06/15/2018 [facility] Serum or plasma amylase measurement (enzymatic activity/volume) 101 25 - 125 06/15/2018 [facility] Serum or plasma amylase measurement (enzymatic activity/volume) 101 25 - 125 06/15/2018 [facility] Automated blood hematocrit (volume fraction) 38.1 34.2 - 44.1 06/15/2018 [facility] Automated erythrocyte mean corpuscular volume 88.4 81 - 99 06/15/2018 [facility] Automated erythrocyte mean corpuscular hemoglobin (mass per erythrocyte) 29.5 28 - 32 06/15/2018 [facility] Automated erythrocyte mean corpuscular hemoglobin concentration measurement (mass/volume) 33.3 31 - 35 06/15/2018 [facility] RDW BldCo-Rto 13.5 11.7 - 14.4 06/15/2018 [facility] Automated blood platelet count (count/volume) 297 140 - 360 06/15/2018 [facility] Automated blood segmented neutrophil count as percentage of total leukocytes 60.6 38.7 - 80.0 06/15/2018 [facility] Automated blood lymphocyte count as percentage ot total leukocytes 28.9 18.0 - 39.1 06/15/2018 [facility] Automated blood monocyte count as percentage of total leukocytes 6.7 4.4 - 11.3 06/15/2018 [facility] Automated blood eosinophil count as percentage of total leukocytes 1.6 0.0 - 6.0 06/15/2018 [facility] Automated blood basophil count as percentage of total leukocytes 1.0 0.0 - 1.0 06/15/2018 [facility] IM GRANULOCYTES % 1.2 0.0 - 1.0 06/15/2018 [facility] Automated blood neutrophil count 3.0 2.1 - 6.9 06/15/2018 [facility] Blood lymphocytes count (number/volume) 1.4 1.0 - 3.2 06/15/2018 [facility] Blood monocytes automated count (number/volume) 0.3 0.2 - 0.8 06/15/2018 [facility] Automated blood eosinophil count 0.1 0.0 - 0.4 06/15/2018 [facility] Automated blood basophil count (count/volume) 0.1 0.0 - 0.1 06/15/2018 [facility] Absolute Immature Granulocyte (auto 0.06 0 - 0.1 06/15/2018 [facility] Urine color determination YELLOW YELLOW 06/15/2018 [facility] Urine clarity CLEAR CLEAR 06/15/2018 [facility] Specific gravity of Urine by Test strip 1.010 1.010 - 1.025 06/15/2018 [facility] Urine pH measurement by automated test strip 6 5 - 7 06/15/2018 [facility] Urine leukocyte esterase detection by dipstick TRACE NEGATIVE 06/15/2018 [facility] Urine nitrite detection NEGATIVE NEGATIVE 06/15/2018 [facility] Urine protein measurement by test strip (mass/volume) NEGATIVE NEGATIVE 06/15/2018 [facility] Urine glucose detection NEGATIVE NEGATIVE 06/15/2018 [facility] Urine ketones detection by automated test strip NEGATIVE NEGATIVE 06/15/2018 [facility] Urine urobilinogen measurement by test strip (mass/volume) 0.2 0.2 - 1 06/15/2018 [facility] Urine total bilirubin measurement (mass/volume) NEGATIVE NEGATIVE 06/15/2018 [facility] Urine erythrocytes detection NEGATIVE NEGATIVE 06/15/2018 [facility] Automated urine sediment leukocyte count by microscopy (number/high power field) 6-10 0 - 5 06/15/2018 [facility] Erythrocytes detection in urine sediment by light microscopy NONE 0 - 5 06/15/2018 [facility] Bacteria detection in urine sediment by light microscopy MODERATE NONE 06/15/2018 [facility] Epithelial cells detection in urine sediment by light microscopy RARE NONE 06/15/2018 [facility] Serum or plasma sodium measurement (moles/volume) 138 136 - 145 06/15/2018 [facility] Serum or plasma potassium measurement (moles/volume) 3.7 3.5 - 5.1 06/15/2018 [facility] Serum or plasma chloride measurement (moles/volume) 108 98 - 107 06/15/2018 [facility] Serum or plasma carbon dioxide, total measurement (moles/volume) 23 22 - 29 06/15/2018 [facility] Serum or plasma anion gap 10.7 8 - 16 06/15/2018 [facility] Serum or plasma urea nitrogen measurement (mass/volume) 9 7 - 26 06/15/2018 [facility] Serum or plasma creatinine measurement (mass/volume) 0.99 0.57 - 1.11 06/15/2018 [facility] Serum or plasma urea nitrogen/creatinine mass ratio 9 6 - 25 06/15/2018 [facility] Estimated glomerular filtration rate (GFR) determination > 60 60 06/15/2018 [facility] Glucose measurement 76 74 - 118 06/15/2018 [facility] Serum or plasma calcium measurement (mass/volume) 8.5 8.4 - 10.2 06/15/2018 [facility] Serum or plasma total bilirubin measurement (mass/volume) 0.2 0.2 - 1.2 06/15/2018 [facility] Aspartate Amino Transf (AST/SGOT) 17 5 - 34 06/15/2018 [facility] Serum or plasma alanine aminotransferase measurement (enzymatic activity/volume) 19 0 - 55 06/15/2018 [facility] Serum or plasma protein measurement (mass/volume) 6.3 6.5 - 8.1 06/15/2018 [facility] Serum or plasma albumin measurement (mass/volume) 3.6 3.5 - 5.0 06/15/2018 [facility] Plasma globulin measurement (mass/volume) 2.7 2.3 - 3.5 06/15/2018 [facility] Serum or plasma albumin/globulin mass ratio 1.3 0.8 - 2.0 06/15/2018 [facility] Serum or plasma alkaline phosphatase measurement (enzymatic activity/volume) 87 40 - 150 06/15/2018 [facility] Serum or plasma amylase measurement (enzymatic activity/volume) 101 25 - 125 06/15/2018 [facility] Serum or plasma lipase measurement (enzymatic activity/volume) 30 8 - 78 06/15/2018 [facility] Urine opiates screening test NEGATIVE NEGATIVE 06/15/2018 [facility] Barbiturates screen, urine NEGATIVE NEGATIVE 06/15/2018 [facility] Urine phencyclidine detection by screening method NEGATIVE NEGATIVE 06/15/2018 [facility] Urine amphetamines detection by screen method > 1000 ng/mL NEGATIVE NEGATIVE 06/15/2018 [facility] Urine Methamphetamines Screen NEGATIVE NEGATIVE 06/15/2018 [facility] Urine benzodiazepines detection by screening method POSITIVE NEGATIVE 06/15/2018 [facility] Urine cocaine measurement (mass/volume) POSITIVE NEGATIVE 06/15/2018 [facility] Urine cannabinoids detection by screening method POSITIVE NEGATIVE 06/15/2018 [facility] Urine methadone screen NEGATIVE NEGATIVE 06/15/2018 [facility] Barbiturates screen, urine NEGATIVE NEGATIVE 06/15/2018 [facility] Urine phencyclidine detection by screening method NEGATIVE NEGATIVE 06/15/2018 [facility] Urine amphetamines detection by screen method > 1000 ng/mL NEGATIVE NEGATIVE 06/15/2018 [facility] Urine Methamphetamines Screen NEGATIVE NEGATIVE 06/15/2018 [facility] Urine benzodiazepines detection by screening method POSITIVE NEGATIVE 06/15/2018 [facility] Urine cocaine measurement (mass/volume) POSITIVE NEGATIVE 06/15/2018 [facility] Urine cannabinoids detection by screening method POSITIVE NEGATIVE 06/15/2018 [facility] Urine methadone screen NEGATIVE NEGATIVE 06/15/2018 [facility] Urine methadone screen NEGATIVE NEGATIVE 06/15/2018 [facility] Urine opiates screening test NEGATIVE NEGATIVE 06/15/2018 [facility] ED Abdomen/Pelvis IV contrast only CT ED Abdomen/Pelvis IV contrast only CT Clinical Indication: - rlq abd pain, eval for appy, and epigastric mass ? Hernia, hx hiatal hernia repair; Comparison: 04/16/2018 TECHNIQUE: Sequential trans-axial images were obtained with a multi-detector helical CT after administration of iodinated contrast. Coronal and sagittal reconstructions were obtained. 100 mL of omnipaque contrast material was used for the exam. No oral contrast material was used for the exam. CT Radiation Dose DLP 1310.07 mGy-cm CT imaging performed at this location utilizes radiation dose optimization techniques which include one or more of the following: -Automated exposure control -Adjustment of the mA and/or kV according to patient size -Use of iterative reconstruction technique FINDINGS: CT ABDOMEN WITH CONTRAST: VISUALIZED LUNG BASES: Unremarkable. ABDOMINAL SOLID ORGANS: The contrast-enhanced images of the liver, spleen, pancreas, and adrenals are normal. The extrahepatic duct/ common bile duct appears unremarkable. The gallbladder was removed. There are surgical clips in the gallbladder fossa. There is left renal midpole cortical cyst. There are no renal stones. There is no hydronephrosis or hydroureter. There are regions of thickening of the left renal cortex most likely from previous infectious etiology. STOMACH AND BOWEL: The stomach is unremarkable. The unopacified loops of small bowel in the abdomen are unremarkable. The unopacified loops of colon in the abdomen are unremarkable. There is a normal appendix. PERITONEUM AND RETROPERITONEUM: There is no abdominal lymphadenopathy. There are surgical coils and mesh visualized involving the anterior abdominal wall. There is no pneumoperitoneum or ascites. The retroperitoneal region appears unremarkable. VASCULAR STRUCTURES: The abdominal aorta appears unremarkable. There are widely patent bilateral renal arteries. The mesenteric arteries appear unremarkable. The inferior vena cava appears normal. The renal veins, mesenteric veins and portal vein appear unremarkable. OSSEOUS STRUCTURES: There are no definite significant osseous abnormalities seen. CT PELVIS WITH CONTRAST: BOWEL: The unopacified loops of small bowel in the pelvis are unremarkable. The unopacified loops of colon in the pelvis are unremarkable. There is a normal appendix. The uterus was removed. PERITONEUM AND EXTRAPERITONEAL REGIONS: There is no pelvic lymphadenopathy or ascites. The inguinal regions are unremarkable. BLADDER: The bladder appears unremarkable. OSSEOUS STRUCTURES: There are no definite significant osseous abnormalities seen. IMPRESSION: 1. No acute abnormality of the abdomen or pelvis. 2. Normal appendix. 3. Previous cholecystectomy. 4. Previous anterior abdominal wall hernia repair. SL: [id number] 06/11/2018 - - Read by: Vipul Puga MD Dictated Date/time: 06/11/18 12:07 Electronically Signed by: Vipul Puga MD 06/11/18 12:12 FINAL REPORT [facility] Abdomen AP DX Abdomen AP DX Clinical Indication: - abd pain Comparison: Prior abdominal radiograph dated 03/01/2018. FINDINGS-IMPRESSION: The AP supine view of the abdomen shows a non-obstructive bowel gas pattern. There is no abnormal dilatation of bowel loops. There is no pneumatosis or mass effect. Persistent circular metallic densities in the central and left mid abdomen corresponding to the hernia mesh repair. Cholecystectomy clips in the right upper abdomen. There are no clinically significant osseous abnormalities noted. SL: [id number] 06/08/2018 - - Read by: Morena Hurley MD Dictated Date/time: 06/08/18 11:42 Electronically Signed by: Morena Hurley MD 06/08/18 11:47 FINAL REPORT [facility] Blood leukocytes automated count (number/volume) 5.42 4.8 - 10.8 06/03/2018 [facility] Blood erythrocytes automated count (number/volume) 4.21 3.6 - 5.1 06/03/2018 [facility] Blood hemoglobin measurement (moles/volume) 12.5 12.0 - 16.0 06/03/2018 [facility] Automated blood hematocrit (volume fraction) 36.6 34.2 - 44.1 06/03/2018 [facility] Automated erythrocyte mean corpuscular volume 86.9 81 - 99 06/03/2018 [facility] Automated erythrocyte mean corpuscular hemoglobin (mass per erythrocyte) 29.7 28 - 32 06/03/2018 [facility] Automated erythrocyte mean corpuscular hemoglobin concentration measurement (mass/volume) 34.2 31 - 35 06/03/2018 [facility] RDW BldCo-Rto 13.3 11.7 - 14.4 06/03/2018 [facility] Automated blood platelet count (count/volume) 237 140 - 360 06/03/2018 [facility] Automated blood segmented neutrophil count as percentage of total leukocytes 65.3 38.7 - 80.0 06/03/2018 [facility] Automated blood lymphocyte count as percentage ot total leukocytes 26.9 18.0 - 39.1 06/03/2018 [facility] Automated blood monocyte count as percentage of total leukocytes 5.2 4.4 - 11.3 06/03/2018 [facility] Automated blood eosinophil count as percentage of total leukocytes 1.5 0.0 - 6.0 06/03/2018 [facility] Automated blood basophil count as percentage of total leukocytes 0.7 0.0 - 1.0 06/03/2018 [facility] IM GRANULOCYTES % 0.4 0.0 - 1.0 06/03/2018 [facility] Automated blood neutrophil count 3.5 2.1 - 6.9 06/03/2018 [facility] Blood lymphocytes count (number/volume) 1.5 1.0 - 3.2 06/03/2018 [facility] Blood monocytes automated count (number/volume) 0.3 0.2 - 0.8 06/03/2018 [facility] Automated blood eosinophil count 0.1 0.0 - 0.4 06/03/2018 [facility] Automated blood basophil count (count/volume) 0.0 0.0 - 0.1 06/03/2018 [facility] Absolute Immature Granulocyte (auto 0.02 0 - 0.1 06/03/2018 [facility] Serum or plasma sodium measurement (moles/volume) 134 136 - 145 06/03/2018 [facility] Serum or plasma potassium measurement (moles/volume) 3.7 3.5 - 5.1 06/03/2018 [facility] Serum or plasma chloride measurement (moles/volume) 103 98 - 107 06/03/2018 [facility] Serum or plasma carbon dioxide, total measurement (moles/volume) 24 22 - 29 06/03/2018 [facility] Serum or plasma anion gap 10.7 8 - 16 06/03/2018 [facility] Serum or plasma urea nitrogen measurement (mass/volume) 10 7 - 26 06/03/2018 [facility] Serum or plasma creatinine measurement (mass/volume) 0.82 0.57 - 1.11 06/03/2018 [facility] Serum or plasma urea nitrogen/creatinine mass ratio 12 6 - 25 06/03/2018 [facility] Estimated glomerular filtration rate (GFR) determination > 60 60 06/03/2018 [facility] Glucose measurement 96 74 - 118 06/03/2018 [facility] Serum or plasma calcium measurement (mass/volume) 8.9 8.4 - 10.2 06/03/2018 [facility] Serum or plasma magnesium measurement (mass/volume) 1.9 1.3 - 2.1 06/03/2018 [facility] Serum or plasma total bilirubin measurement (mass/volume) 0.5 0.2 - 1.2 06/03/2018 [facility] Aspartate Amino Transf (AST/SGOT) 14 5 - 34 06/03/2018 [facility] Serum or plasma alanine aminotransferase measurement (enzymatic activity/volume) 19 0 - 55 06/03/2018 [facility] Serum or plasma protein measurement (mass/volume) 6.3 6.5 - 8.1 06/03/2018 [facility] Serum or plasma albumin measurement (mass/volume) 3.5 3.5 - 5.0 06/03/2018 [facility] Plasma globulin measurement (mass/volume) 2.8 2.3 - 3.5 06/03/2018 [facility] Serum or plasma albumin/globulin mass ratio 1.3 0.8 - 2.0 06/03/2018 [facility] Serum or plasma alkaline phosphatase measurement (enzymatic activity/volume) 84 40 - 150 06/03/2018 [facility] Serum or plasma magnesium measurement (mass/volume) 1.9 1.3 - 2.1 06/03/2018 [facility] Serum or plasma magnesium measurement (mass/volume) 1.9 1.3 - 2.1 06/03/2018 [facility] Serum or plasma magnesium measurement (mass/volume) 1.9 1.3 - 2.1 06/03/2018 [facility] Urine color determination YELLOW YELLOW 06/03/2018 [facility] Urine clarity SL CLOUDY CLEAR 06/03/2018 [facility] Specific gravity of Urine by Test strip 1.010 1.010 - 1.025 06/03/2018 [facility] Urine pH measurement by automated test strip 6.5 5 - 7 06/03/2018 [facility] Urine leukocyte esterase detection by dipstick TRACE NEGATIVE 06/03/2018 [facility] Urine nitrite detection NEGATIVE NEGATIVE 06/03/2018 [facility] Urine protein measurement by test strip (mass/volume) NEGATIVE NEGATIVE 06/03/2018 [facility] Urine glucose detection NEGATIVE NEGATIVE 06/03/2018 [facility] Urine ketones detection by automated test strip NEGATIVE NEGATIVE 06/03/2018 [facility] Urine urobilinogen measurement by test strip (mass/volume) 0.2 0.2 - 1 06/03/2018 [facility] Urine total bilirubin measurement (mass/volume) NEGATIVE NEGATIVE 06/03/2018 [facility] Urine erythrocytes detection NEGATIVE NEGATIVE 06/03/2018 [facility] Automated urine sediment leukocyte count by microscopy (number/high power field) 0-5 0 - 5 06/03/2018 [facility] Erythrocytes detection in urine sediment by light microscopy NONE 0 - 5 06/03/2018 [facility] Bacteria detection in urine sediment by light microscopy MODERATE NONE 06/03/2018 [facility] Epithelial cells detection in urine sediment by light microscopy RARE NONE 06/03/2018 [facility] Urine human chorionic gonadotropin (hCG) detection NEGATIVE NEGATIVE 06/03/2018 [facility] Urine human chorionic gonadotropin (hCG) detection NEGATIVE NEGATIVE 06/03/2018 [facility] Urine human chorionic gonadotropin (hCG) detection NEGATIVE NEGATIVE 06/03/2018 [facility] Urine human chorionic gonadotropin (hCG) detection NEGATIVE NEGATIVE 06/03/2018 [facility] Chest 1view DX Chest 1view DX PROCEDURE: CHEST 1 VIEW Clinical Indication: Chest pain. ; Comparison: 05/06/2018 FINDINGS: AP portable chest obtained in shallow inspiration. Multiple EKG leads overlie the chest. Hypoventilatory changes in the lung bases. Bandlike opacities compatible with subsegmental atelectasis. No consolidation. No pleural abnormality. The cardiomediastinal silhouette is stable and normal for projection. The skeleton is intact. IMPRESSION: 1. Hypoventilatory changes with bibasilar atelectasis. No definite pneumonia. SL: [id number] 05/11/2018 - - Read by: Ananda Ravi MD Dictated Date/time: 05/11/18 09:28 Electronically Signed by: Ananda Ravi MD 05/11/18 09:30 FINAL REPORT [facility] CTA Chest CTA Clinical Indication: - chest pain with radiation, dyspnea; Comparison: Chest x-ray same date TECHNIQUE: Sequential trans-axial images were obtained thru the chest and upper abdomen [<after>] administration of iodinated contrast. Coronal and sagittal reconstructions were obtained. 100 mL of omnipaque contrast material was used for the exam. Postprocessing 3-D/MIP reformations were created and interpreted. CT imaging performed at this location utilizes radiation dose optimization techniques which include one or more of the following: -Automated exposure control -Adjustment of the mA and/or kV according to patient size -Use of iterative reconstruction technique CT Radiation Dose DLP 875 mGy-cm FINDINGS: LUNG PARENCHYMA AND PLEURA: There are no lung nodules. There is no interstitial lung disease. There are no pleural effusions.There is no pneumothorax. Mild linear opacities in the lower lungs. AIRWAY: The central airway is normal. MEDIASTINUM: There is no mediastinal lymphadenopathy. Small amount of tissue in the anterior mediastinum likely residual thymic tissue. A 1.5 cm low-density structure in the mediastinum anterior to the SVC is unchanged from prior as well. This may be a small cyst or low-density lymph node, difficult to characterize due to beam hardening from contrast in the adjacent vessels. HEART: The cardiac chambers appear unremarkable. There is no pericardial effusion. VASCULAR STRUCTURES: The pulmonary arteries and great vessels are unremarkable. The thoracic aorta is unremarkable. Evaluation of the proximal ascending aorta is limited due to cardiac motion. The superior vena cava is unremarkable. OSSEOUS STRUCTURES: There are no definite significant osseous abnormalities seen. VISUALIZED UPPER ABDOMEN: The visualized upper abdomen is unremarkable. Left renal cortical thinning and lobulated contour, similar to prior and possibly due to prior infection/scarring. Cholecystectomy. Low-density of the liver compatible with hepatic steatosis. IMPRESSION: 1. No acute abnormalities of the chest. No evidence of acute aortic pathology. No pulmonary emboli. 2. Subsegmental atelectasis in the lung bases. SL: [id number] 05/06/2018 - - Read by: Vasiliy Hernandez MD Dictated Date/time: 05/06/18 11:08 Electronically Signed by: Vasiliy Hernandez MD 05/06/18 11:15 FINAL REPORT [facility] 1view DX Chest 1view DX Clinical Indication: Chest pain - cp Comparison: Comparison is made to chest radiograph examination dated 03/18/2018. FINDINGS: The cardiomediastinal silhouette is within normal limits for appearance. The cardiac silhouette is at the upper limits of normal for size. There is pulmonary hypoinflation with bronchial vascular crowding and minimal bibasilar pulmonary opacities. No focal pulmonary consolidation, pneumothorax or pleural effusion. Midline trachea. IMPRESSION: 1. Pulmonary hypoinflation with bronchovascular crowding and minimal bibasilar subsegmental atelectasis versus infiltrates. No focal pulmonary consolidation. SL: [id number] 05/06/2018 - - Read by: Dylan Humphrey MD Dictated Date/time: 05/06/18 09:11 Electronically Signed by: Dylan Humphrey MD 05/06/18 09:12 FINAL REPORT [facility] Urine opiates screening test NEGATIVE NEGATIVE 04/28/2018 [facility] Barbiturates screen, urine NEGATIVE NEGATIVE 04/28/2018 [facility] Urine phencyclidine detection by screening method NEGATIVE NEGATIVE 04/28/2018 [facility] Urine amphetamines detection by screen method > 1000 ng/mL NEGATIVE NEGATIVE 04/28/2018 [facility] Urine Methamphetamines Screen NEGATIVE NEGATIVE 04/28/2018 [facility] Urine benzodiazepines detection by screening method POSITIVE NEGATIVE 04/28/2018 [facility] Urine cocaine measurement (mass/volume) NEGATIVE NEGATIVE 04/28/2018 [facility] Urine cannabinoids detection by screening method POSITIVE NEGATIVE 04/28/2018 [facility] Urine methadone screen NEGATIVE NEGATIVE 04/28/2018 [facility] Serum or plasma lipase measurement (enzymatic activity/volume) 29 8 - 78 04/28/2018 [facility] Automated blood platelet count (count/volume) 249 140 - 360 04/28/2018 [facility] Automated blood segmented neutrophil count as percentage of total leukocytes 63.7 38.7 - 80.0 04/28/2018 [facility] Automated blood lymphocyte count as percentage ot total leukocytes 28.5 18.0 - 39.1 04/28/2018 [facility] Automated blood monocyte count as percentage of total leukocytes 4.6 4.4 - 11.3 04/28/2018 [facility] Automated blood eosinophil count as percentage of total leukocytes 2.2 0.0 - 6.0 04/28/2018 [facility] Automated blood basophil count as percentage of total leukocytes 0.7 0.0 - 1.0 04/28/2018 [facility] IM GRANULOCYTES % 0.3 0.0 - 1.0 04/28/2018 [facility] Automated blood neutrophil count 3.7 2.1 - 6.9 04/28/2018 [facility] Blood lymphocytes count (number/volume) 1.7 1.0 - 3.2 04/28/2018 [facility] Blood monocytes automated count (number/volume) 0.3 0.2 - 0.8 04/28/2018 [facility] Automated blood eosinophil count 0.1 0.0 - 0.4 04/28/2018 [facility] Automated blood basophil count (count/volume) 0.0 0.0 - 0.1 04/28/2018 [facility] Absolute Immature Granulocyte (auto 0.02 0 - 0.1 04/28/2018 [facility] Urine color determination YELLOW YELLOW 04/28/2018 [facility] Urine clarity HAZY CLEAR 04/28/2018 [facility] Specific gravity of Urine by Test strip 1.005 1.010 - 1.025 04/28/2018 [facility] Urine pH measurement by automated test strip 6 5 - 7 04/28/2018 [facility] Urine leukocyte esterase detection by dipstick NEGATIVE NEGATIVE 04/28/2018 [facility] Urine nitrite detection NEGATIVE NEGATIVE 04/28/2018 [facility] Urine protein measurement by test strip (mass/volume) NEGATIVE NEGATIVE 04/28/2018 [facility] Urine glucose detection NEGATIVE NEGATIVE 04/28/2018 [facility] Urine ketones detection by automated test strip NEGATIVE NEGATIVE 04/28/2018 [facility] Urine opiates screening test NEGATIVE NEGATIVE 04/28/2018 [facility] Barbiturates screen, urine NEGATIVE NEGATIVE 04/28/2018 [facility] Urine phencyclidine detection by screening method NEGATIVE NEGATIVE 04/28/2018 [facility] Urine amphetamines detection by screen method > 1000 ng/mL NEGATIVE NEGATIVE 04/28/2018 [facility] Urine Methamphetamines Screen NEGATIVE NEGATIVE 04/28/2018 [facility] Urine benzodiazepines detection by screening method POSITIVE NEGATIVE 04/28/2018 [facility] Urine cocaine measurement (mass/volume) NEGATIVE NEGATIVE 04/28/2018 [facility] Urine cannabinoids detection by screening method POSITIVE NEGATIVE 04/28/2018 [facility] Urine methadone screen NEGATIVE NEGATIVE 04/28/2018 [facility] Urine urobilinogen measurement by test strip (mass/volume) 0.2 0.2 - 1 04/28/2018 [facility] Urine total bilirubin measurement (mass/volume) NEGATIVE NEGATIVE 04/28/2018 [facility] Urine erythrocytes detection NEGATIVE NEGATIVE 04/28/2018 [facility] Automated urine sediment leukocyte count by microscopy (number/high power field) 0-5 0 - 5 04/28/2018 [facility] Erythrocytes detection in urine sediment by light microscopy 0-5 0 - 5 04/28/2018 [facility] Bacteria detection in urine sediment by light microscopy MODERATE NONE 04/28/2018 [facility] Epithelial cells detection in urine sediment by light microscopy MODERATE NONE 04/28/2018 [facility] Serum or plasma sodium measurement (moles/volume) 134 136 - 145 04/28/2018 [facility] Serum or plasma potassium measurement (moles/volume) 3.9 3.5 - 5.1 04/28/2018 [facility] Serum or plasma chloride measurement (moles/volume) 103 98 - 107 04/28/2018 [facility] Serum or plasma carbon dioxide, total measurement (moles/volume) 23 22 - 29 04/28/2018 [facility] Serum or plasma anion gap 11.9 8 - 16 04/28/2018 [facility] Serum or plasma urea nitrogen measurement (mass/volume) 11 7 - 26 04/28/2018 [facility] Serum or plasma creatinine measurement (mass/volume) 0.84 0.57 - 1.11 04/28/2018 [facility] Serum or plasma urea nitrogen/creatinine mass ratio 13 6 - 25 04/28/2018 [facility] Estimated glomerular filtration rate (GFR) determination > 60 60 04/28/2018 [facility] Glucose measurement 121 74 - 118 04/28/2018 [facility] Serum or plasma calcium measurement (mass/volume) 9.1 8.4 - 10.2 04/28/2018 [facility] Serum or plasma total bilirubin measurement (mass/volume) 0.3 0.2 - 1.2 04/28/2018 [facility] Aspartate Amino Transf (AST/SGOT) 19 5 - 34 04/28/2018 [facility] Serum or plasma alanine aminotransferase measurement (enzymatic activity/volume) 27 0 - 55 04/28/2018 [facility] Serum or plasma protein measurement (mass/volume) 6.9 6.5 - 8.1 04/28/2018 [facility] Serum or plasma albumin measurement (mass/volume) 3.6 3.5 - 5.0 04/28/2018 [facility] Plasma globulin measurement (mass/volume) 3.3 2.3 - 3.5 04/28/2018 [facility] Serum or plasma albumin/globulin mass ratio 1.1 0.8 - 2.0 04/28/2018 [facility] Serum or plasma alkaline phosphatase measurement (enzymatic activity/volume) 108 40 - 150 04/28/2018 [facility] Serum or plasma lipase measurement (enzymatic activity/volume) 29 8 - 78 04/28/2018 [facility] CARDIAC ENZYMES Troponin-I null 0.00 - 0.40 04/16/2018 [facility] CHEM PANEL Lipase Lvl 134 unit/L 73 - 393 04/16/2018 [facility] CHEM PANEL Globulin 3.9 g/dL 2.7 - 4.2 04/16/2018 [facility] CHEM PANEL A/G Ratio 0.9 0.7 - 1.6 04/16/2018 [facility] CHEM PANEL AGAP 15.1 meq/L 10.0 - 20.0 04/16/2018 [facility] CHEM PANEL B/C Ratio 12 6 - 25 04/16/2018 [facility] CHEM PANEL eGFR 62 mL/min/1.73m2 04/16/2018 Result Comment: The eGFR is calculated using the CKD-EPI formula. In most young, healthy individuals the eGFR will be >90 mL/min/1.73m2. The eGFR declines with age. An eGFR of 60-89 may be normal in some populations, particularly the elderly, for whom the CKD-EPI formula has not been extensively validated. Use of the eGFR is not recommended in the following populations: Individuals with unstable creatinine concentrations, including patients and those with serious co-morbid conditions. Patients with extremes in muscle mass or diet. The data above are obtained from the National Kidney Disease Education Program (NKDEP) which additionally recommends that when the eGFR is used in patients with extremes of body mass index for purposes of drug dosing, the eGFR should be multiplied by the estimated BMI. [facility] CHEM PANEL Total Protein 7.5 g/dL 6.4 - 8.4 04/16/2018 [facility] CHEM PANEL ALT 47 unit/L 0 - 65 04/16/2018 [facility] CHEM PANEL Bili Total 0.3 mg/dL 0.2 - 1.3 04/16/2018 [facility] CHEM PANEL AST 23 unit/L 0 - 37 04/16/2018 [facility] CHEM PANEL Albumin Lvl 3.6 g/dL 3.5 - 5.0 04/16/2018 [facility] CHEM PANEL Calcium Lvl 8.7 mg/dL 8.5 - 10.5 04/16/2018 [facility] CHEM PANEL Chloride Lvl 107 meq/L 95 - 109 04/16/2018 [facility] CHEM PANEL Creatinine Lvl 1.12 mg/dL 0.50 - 1.40 04/16/2018 [facility] CHEM PANEL Sodium Lvl 142 meq/L 135 - 145 04/16/2018 [facility] CHEM PANEL CO2 24 meq/L 24 - 32 04/16/2018 [facility] CHEM PANEL Potassium Lvl 4.1 meq/L 3.5 - 5.1 04/16/2018 [facility] CHEM PANEL Alk Phos 123 unit/L 39 - 136 04/16/2018 [facility] CHEM PANEL Glucose Lvl 109 mg/dL 70 - 99 04/16/2018 [facility] CHEM PANEL BUN 14 mg/dL 7 - 22 04/16/2018 [facility] HEMATOLOGY Monocytes 4.5 % 2.0 - 12.0 04/16/2018 [facility] HEMATOLOGY Lymphocytes 32.7 % 20.0 - 40.0 04/16/2018 [facility] HEMATOLOGY Basophils 1.1 % 0.0 - 1.0 04/16/2018 [facility] HEMATOLOGY Eosinophils 2.2 % 0.0 - 4.0 04/16/2018 [facility] HEMATOLOGY Segs 59.5 % 45.0 - 75.0 04/16/2018 [facility] Lymphocytes # 1.8 K/CMM 1.0 - 5.5 04/16/2018 [facility] HEMATOLOGY Neutrophils # 3.3 K/CMM 1.5 - 8.1 04/16/2018 [facility] HEMATOLOGY Eosinophils # 0.1 K/CMM 0.0 - 0.5 04/16/2018 [facility] Monocytes # 0.2 K/CMM 0.0 - 0.8 04/16/2018 [facility] Basophils # 0.1 K/CMM 0.0 - 0.2 04/16/2018 [facility] Platelet 272 K/CMM 133 - 450 04/16/2018 [facility] RDW 14.4 % 11.5 - 14.5 04/16/2018 [facility] MPV 7.4 fL 7.4 - 10.4 04/16/2018 [facility] MCHC 33.9 g/dL 32.0 - 36.0 04/16/2018 [facility] Hct 41.6 % 36.0 - 48.0 04/16/2018 [facility] MCH 29.6 pg 27.0 - 31.0 04/16/2018 [facility] MCV 87.4 fL 80.0 - 98.0 04/16/2018 [facility] RBC 4.76 M/CMM 4.20 - 5.40 04/16/2018 [facility] Hgb 14.1 g/dL 12.0 - 16.0 04/16/2018 [facility] WBC 5.6 K/CMM 3.7 - 10.4 04/16/2018 [facility] URINE AND STOOL UA Protein Negative (04/16/18 8:40 AM) Negative 04/16/2018 [facility] URINE AND STOOL UA Spec Grav 1.010 <=1.030 04/16/2018 [facility] URINE AND STOOL UA Ketones Negative *NA* (04/16/18 8:40 AM) Negative 04/16/2018 [facility] URINE AND STOOL UA Color Yellow *NA* (04/16/18 8:40 AM) Yellow 04/16/2018 [facility] URINE AND STOOL UA pH 5.0 5.0 - 8.0 04/16/2018 [facility] URINE AND STOOL UA Turbidity Marked *ABN* (04/16/18 8:40 AM) Clear 04/16/2018 [facility] URINE AND STOOL UA Glucose Negative *NA* (04/16/18 8:40 AM) Negative 04/16/2018 [facility] URINE AND STOOL UA WBC 7 /HPF 0 - 5 04/16/2018 [facility] URINE AND STOOL UA Leuk Est Trace *ABN* (04/16/18 8:40 AM) Negative 04/16/2018 [facility] URINE AND STOOL UA Sq Epi Moderate /LPF Few /LPF 04/16/2018 [facility] URINE AND STOOL UA Blood Negative (04/16/18 8:40 AM) Negative 04/16/2018 [facility] URINE AND STOOL UA Bili Negative *NA* (04/16/18 8:40 AM) Negative 04/16/2018 [facility] URINE AND STOOL UA Urobilinogen <=1.0 mg/dL 0.1 - 1.0 04/16/2018 [facility] URINE AND STOOL UA Nitrite Positive *ABN* (04/16/18 8:40 AM) Negative 04/16/2018 [facility] URINE AND STOOL UA Bacteria Few /HPF None Seen /HPF 04/16/2018 [facility] URINE AND STOOL UA RBC 3 /HPF 0 - 2 04/16/2018 [facility] URINE CHEM U Preg Negative (04/16/18 8:40 AM) Negative 04/16/2018 [facility] ED Abdomen/Pelvis IV contrast only CT ED Abdomen/Pelvis IV contrast only CT Clinical Indication: - left sided abdominal pain. Comparison: None. TECHNIQUE: Helical CT imaging of the abdomen and pelvis performed from lung bases through the lesser trochanters following the administration of intravenous contrast. Axial, sagittal and coronal multiplanar reconstructions provided. CT imaging performed at this location utilizes radiation dose optimization techniques which include one or more of the following: -Automated exposure control -Adjustment of the mA and/or kV according to patient size -Use of iterative reconstruction technique IV contrast: 100 cc Omnipaque. GI contrast: None Exam FZG=[id number] mGy-cm FINDINGS: LOWER CHEST: The visualized lung bases are clear, with minimal dependent subsegmental atelectasis LIVER: Hepatic steatosis. No focal lesion seen. GALLBLADDER/BILIARY: Cholecystectomy. No biliary ductal dilatation. PANCREAS: Unremarkable SPLEEN: Unremarkable ADRENALS: Unremarkable. KIDNEYS AND URETERS: Unremarkable. Retroaortic left renal vein. BLADDER: Unremarkable STOMACH: Unremarkable BOWEL: Normal in course and caliber without focal wall thickening or evidence of obstruction APPENDIX: Normal PELVIS: Status post hysterectomy. No pelvic mass. PERITONEUM: No ascites or free air. Prior ventral hernia repair with mesh. LYMPH NODES: Unremarkable. VASCULAR: No aortic aneurysm or dissection OSSEOUS STRUCTURES: No acute abnormality seen SOFT TISSUES: Unremarkable IMPRESSION: 1. No acute abnormality identified in the abdomen or pelvis. 2. Mild hepatic steatosis. SL: [id number] 04/16/2018 - - Read by: Dmitriy Joe MD Dictated Date/time: 04/16/18 10:43 Electronically Signed by: Dmitriy Joe MD 04/16/18 10:53 FINAL REPORT [facility] CHEM PANEL Lipase Lvl 139 unit/L 73 - 393 04/05/2018 [facility] ELECTROLYTES AGAP 16.2 meq/L 10.0 - 20.0 04/05/2018 [facility] ELECTROLYTES B/C Ratio 16 6 - 25 04/05/2018 [facility] ELECTROLYTES Globulin 3.6 g/dL 2.7 - 4.2 04/05/2018 [facility] ELECTROLYTES A/G Ratio 0.9 0.7 - 1.6 04/05/2018 [facility] ELECTROLYTES eGFR 62 mL/min/1.73m2 04/05/2018 Result Comment: The eGFR is calculated using the CKD-EPI formula. In most young, healthy individuals the eGFR will be >90 mL/min/1.73m2. The eGFR declines with age. An eGFR of 60-89 may be normal in some populations, particularly the elderly, for whom the CKD-EPI formula has not been extensively validated. Use of the eGFR is not recommended in the following populations: Individuals with unstable creatinine concentrations, including patients and those with serious co-morbid conditions. Patients with extremes in muscle mass or diet. The data above are obtained from the National Kidney Disease Education Program (NKDEP) which additionally recommends that when the eGFR is used in patients with extremes of body mass index for purposes of drug dosing, the eGFR should be multiplied by the estimated BMI. [facility] ELECTROLYTES Potassium Lvl 4.2 meq/L 3.5 - 5.1 04/05/2018 [facility] ELECTROLYTES Sodium Lvl 143 meq/L 135 - 145 04/05/2018 [facility] ELECTROLYTES Chloride Lvl 108 meq/L 95 - 109 04/05/2018 [facility] ELECTROLYTES CO2 23 meq/L 24 - 32 04/05/2018 [facility] ELECTROLYTES Calcium Lvl 8.6 mg/dL 8.5 - 10.5 04/05/2018 [facility] ELECTROLYTES Total Protein 6.9 g/dL 6.4 - 8.4 04/05/2018 [facility] ELECTROLYTES Albumin Lvl 3.3 g/dL 3.5 - 5.0 04/05/2018 [facility] ELECTROLYTES ALT 39 unit/L 0 - 65 04/05/2018 [facility] ELECTROLYTES Alk Phos 116 unit/L 39 - 136 04/05/2018 [facility] ELECTROLYTES AST 20 unit/L 0 - 37 04/05/2018 [facility] ELECTROLYTES Bili Total 0.3 mg/dL 0.2 - 1.3 04/05/2018 [facility] ELECTROLYTES Glucose Lvl 97 mg/dL 70 - 99 04/05/2018 [facility] ELECTROLYTES BUN 18 mg/dL 7 - 22 04/05/2018 [facility] ELECTROLYTES Creatinine Lvl 1.11 mg/dL 0.50 - 1.40 04/05/2018 [facility] ENDOCRINOLOGY S Preg Negative *NA* (04/05/18 9:02 AM) Negative 04/05/2018 [facility] HEMATOLOGY Monocytes 4.7 % 2.0 - 12.0 04/05/2018 [facility] HEMATOLOGY Eosinophils 2.5 % 0.0 - 4.0 04/05/2018 [facility] HEMATOLOGY Basophils 1.1 % 0.0 - 1.0 04/05/2018 [facility] HEMATOLOGY Monocytes # 0.3 K/CMM 0.0 - 0.8 04/05/2018 [facility] HEMATOLOGY Lymphocytes # 1.5 K/CMM 1.0 - 5.5 04/05/2018 [facility] HEMATOLOGY Neutrophils # 3.6 K/CMM 1.5 - 8.1 04/05/2018 [facility] Lymphocytes 26.9 % 20.0 - 40.0 04/05/2018 [facility] HEMATOLOGY Segs 64.8 % 45.0 - 75.0 04/05/2018 [facility] HEMATOLOGY Eosinophils # 0.1 K/CMM 0.0 - 0.5 04/05/2018 [facility] HEMATOLOGY Basophils # 0.1 K/CMM 0.0 - 0.2 04/05/2018 [facility] MCH 29.9 pg 27.0 - 31.0 04/05/2018 [facility] MCHC 34.4 g/dL 32.0 - 36.0 04/05/2018 [facility] Platelet 248 K/CMM 133 - 450 04/05/2018 [facility] HEMATOLOGY RDW 14.8 % 11.5 - 14.5 04/05/2018 [facility] MPV 7.1 fL 7.4 - 10.4 04/05/2018 [facility] Hgb 13.1 g/dL 12.0 - 16.0 04/05/2018 [facility] RBC 4.38 M/CMM 4.20 - 5.40 04/05/2018 [facility] MCV 86.8 fL 80.0 - 98.0 04/05/2018 [facility] Hct 38.0 % 36.0 - 48.0 04/05/2018 [facility] WBC 5.5 K/CMM 3.7 - 10.4 04/05/2018 [facility] URINE AND STOOL UA Blood Negative (04/05/18 9:02 AM) Negative 04/05/2018 [facility] URINE AND STOOL UA Leuk Est Negative (04/05/18 9:02 AM) Negative 04/05/2018 [facility] URINE AND STOOL UA Nitrite Negative (04/05/18 9:02 AM) Negative 04/05/2018 [facility] URINE AND STOOL UA Glucose Negative *NA* (04/05/18 9:02 AM) Negative 04/05/2018 [facility] URINE AND STOOL UA Bili Negative *NA* (04/05/18 9:02 AM) Negative 04/05/2018 [facility] URINE AND STOOL UA Ketones Negative *NA* (04/05/18 9:02 AM) Negative 04/05/2018 [facility] URINE AND STOOL UA WBC 2 /HPF 0 - 5 04/05/2018 [facility] URINE AND STOOL UA Sq Epi Occasional /LPF Few /LPF 04/05/2018 [facility] URINE AND STOOL UA RBC 2 /HPF 0 - 2 04/05/2018 [facility] URINE AND STOOL UA Bacteria Occasional /HPF None Seen /HPF 04/05/2018 [facility] URINE AND STOOL UA Urobilinogen <=1.0 mg/dL 0.1 - 1.0 04/05/2018 [facility] URINE AND STOOL UA Turbidity Clear (04/05/18 9:02 AM) Clear 04/05/2018 [facility] URINE AND STOOL UA Color Ltyellow 04/05/2018 [facility] URINE AND STOOL UA pH 7.0 5.0 - 8.0 04/05/2018 [facility] URINE AND STOOL UA Protein Negative (04/05/18 9:02 AM) Negative 04/05/2018 [facility] URINE AND STOOL UA Spec Grav 1.009 <=1.030 04/05/2018 [facility] Serum or plasma choriogonadotropin ( test) detection NEGATIVE NEGATIVE 03/28/2018 [facility] Serum or plasma choriogonadotropin ( test) detection NEGATIVE NEGATIVE 03/28/2018 [facility] Serum or plasma amylase measurement (enzymatic activity/volume) 101 25 - 125 03/28/2018 [facility] Serum or plasma choriogonadotropin ( test) detection NEGATIVE NEGATIVE 03/28/2018 [facility] Serum or plasma choriogonadotropin ( test) detection NEGATIVE NEGATIVE 03/28/2018 [facility] Serum or plasma choriogonadotropin ( test) detection NEGATIVE NEGATIVE 03/28/2018 [facility] CHEM PANEL Lipase Lvl 145 unit/L 73 - 393 03/21/2018 [facility] ELECTROLYTES AGAP 12.1 meq/L 10.0 - 20.0 03/21/2018 [facility] ELECTROLYTES Globulin 3.7 g/dL 2.7 - 4.2 03/21/2018 [facility] ELECTROLYTES B/C Ratio 16 6 - 25 03/21/2018 [facility] ELECTROLYTES A/G Ratio 0.9 0.7 - 1.6 03/21/2018 [facility] ELECTROLYTES eGFR 74 mL/min/1.73m2 03/21/2018 Result Comment: The eGFR is calculated using the CKD-EPI formula. In most young, healthy individuals the eGFR will be >90 mL/min/1.73m2. The eGFR declines with age. An eGFR of 60-89 may be normal in some populations, particularly the elderly, for whom the CKD-EPI formula has not been extensively validated. Use of the eGFR is not recommended in the following populations: Individuals with unstable creatinine concentrations, including patients and those with serious co-morbid conditions. Patients with extremes in muscle mass or diet. The data above are obtained from the National Kidney Disease Education Program (NKDEP) which additionally recommends that when the eGFR is used in patients with extremes of body mass index for purposes of drug dosing, the eGFR should be multiplied by the estimated BMI. [facility] ELECTROLYTES Creatinine Lvl 0.96 mg/dL 0.50 - 1.40 03/21/2018 [facility] ELECTROLYTES BUN 15 mg/dL 7 - 22 03/21/2018 [facility] ELECTROLYTES Glucose Lvl 85 mg/dL 70 - 99 03/21/2018 [facility] ELECTROLYTES Bili Total 0.3 mg/dL 0.2 - 1.3 03/21/2018 [facility] ELECTROLYTES CO2 29 meq/L 24 - 32 03/21/2018 [facility] ELECTROLYTES Sodium Lvl 143 meq/L 135 - 145 03/21/2018 [facility] ELECTROLYTES Chloride Lvl 106 meq/L 95 - 109 03/21/2018 [facility] ELECTROLYTES Potassium Lvl 4.1 meq/L 3.5 - 5.1 03/21/2018 [facility] ELECTROLYTES Calcium Lvl 8.6 mg/dL 8.5 - 10.5 03/21/2018 [facility] ELECTROLYTES Alk Phos 109 unit/L 39 - 136 03/21/2018 [facility] ELECTROLYTES Total Protein 7.1 g/dL 6.4 - 8.4 03/21/2018 [facility] ELECTROLYTES Albumin Lvl 3.4 g/dL 3.5 - 5.0 03/21/2018 [facility] ELECTROLYTES ALT 27 unit/L 0 - 65 03/21/2018 [facility] ELECTROLYTES AST 16 unit/L 0 - 37 03/21/2018 [facility] ENDOCRINOLOGY S Preg Negative *NA* (03/21/18 8:57 AM) Negative 03/21/2018 [facility] HEMATOLOGY Segs 63.3 % 45.0 - 75.0 03/21/2018 [facility] HEMATOLOGY Lymphocytes 27.7 % 20.0 - 40.0 03/21/2018 [facility] HEMATOLOGY Basophils 0.8 % 0.0 - 1.0 03/21/2018 [facility] HEMATOLOGY Monocytes 5.0 % 2.0 - 12.0 03/21/2018 [facility] HEMATOLOGY Eosinophils 3.2 % 0.0 - 4.0 03/21/2018 [facility] HEMATOLOGY Neutrophils # 3.6 K/CMM 1.5 - 8.1 03/21/2018 [facility] HEMATOLOGY Lymphocytes # 1.6 K/CMM 1.0 - 5.5 03/21/2018 [facility] HEMATOLOGY Eosinophils # 0.2 K/CMM 0.0 - 0.5 03/21/2018 [facility] HEMATOLOGY Monocytes # 0.3 K/CMM 0.0 - 0.8 03/21/2018 [facility] HEMATOLOGY MPV 7.4 fL 7.4 - 10.4 03/21/2018 [facility] HEMATOLOGY RDW 14.5 % 11.5 - 14.5 03/21/2018 [facility] HEMATOLOGY Platelet 289 K/CMM 133 - 450 03/21/2018 [facility] MCHC 33.9 g/dL 32.0 - 36.0 03/21/2018 [facility] HEMATOLOGY RBC 4.50 M/CMM 4.20 - 5.40 03/21/2018 [facility] Hgb 13.2 g/dL 12.0 - 16.0 03/21/2018 [facility] WBC 5.7 K/CMM 3.7 - 10.4 03/21/2018 [facility] MCV 86.5 fL 80.0 - 98.0 03/21/2018 [facility] MCH 29.3 pg 27.0 - 31.0 03/21/2018 [facility] Hct 38.9 % 36.0 - 48.0 03/21/2018 [facility] URINE AND STOOL UA Color Ltyellow 03/21/2018 [facility] URINE AND STOOL UA Urobilinogen <=1.0 mg/dL 0.1 - 1.0 03/21/2018 [facility] URINE AND STOOL UA Sq Epi Occasional /LPF Few /LPF 03/21/2018 [facility] URINE AND STOOL UA RBC 1 /HPF 0 - 2 03/21/2018 [facility] URINE AND STOOL UA WBC 1 /HPF 0 - 5 03/21/2018 [facility] URINE AND STOOL UA Bacteria Occasional /HPF None Seen /HPF 03/21/2018 [facility] URINE AND STOOL UA Bili Negative *NA* (03/21/18 8:57 AM) Negative 03/21/2018 [facility] URINE AND STOOL UA Blood Negative (03/21/18 8:57 AM) Negative 03/21/2018 [facility] URINE AND STOOL UA Leuk Est Negative (03/21/18 8:57 AM) Negative 03/21/2018 [facility] URINE AND STOOL UA Nitrite Negative (03/21/18 8:57 AM) Negative 03/21/2018 [facility] URINE AND STOOL UA Protein Negative mg/dL Negative mg/dL 03/21/2018 [facility] URINE AND STOOL UA pH 6.0 5.0 - 8.0 03/21/2018 [facility] URINE AND STOOL UA Ketones Negative mg/dL Negative mg/dL 03/21/2018 [facility] URINE AND STOOL UA Glucose Negative mg/dL Negative mg/dL 03/21/2018 [facility] URINE AND STOOL UA Spec Grav 1.011 <=1.030 03/21/2018 [facility] URINE AND STOOL UA Turbidity Clear (03/21/18 8:57 AM) Clear 03/21/2018 [facility] CHEM PANEL ALT 31 unit/L 0 - 65 03/19/2018 [facility] CHEM PANEL A/G Ratio 1.0 0.7 - 1.6 03/19/2018 [facility] CHEM PANEL Globulin 3.7 g/dL 2.7 - 4.2 03/19/2018 [facility] CHEM PANEL Alk Phos 123 unit/L 39 - 136 03/19/2018 [facility] CHEM PANEL AST 18 unit/L 0 - 37 03/19/2018 [facility] CHEM PANEL Bili Direct null 0.0 - 0.3 03/19/2018 [facility] CHEM PANEL Bili Total 0.3 mg/dL 0.2 - 1.3 03/19/2018 [facility] CHEM PANEL Bili Indirect Unable to Calculate 0.0 - 1.0 03/19/2018 [facility] CHEM PANEL Total Protein 7.3 g/dL 6.4 - 8.4 03/19/2018 [facility] CHEM PANEL Albumin Lvl 3.6 g/dL 3.5 - 5.0 03/19/2018 [facility] CHEM PANEL Lipase Lvl 117 unit/L 73 - 393 03/19/2018 [facility] CHEM PANEL eGFR 80 mL/min/1.73m2 03/19/2018 Result Comment: The eGFR is calculated using the CKD-EPI formula. In most young, healthy individuals the eGFR will be >90 mL/min/1.73m2. The eGFR declines with age. An eGFR of 60-89 may be normal in some populations, particularly the elderly, for whom the CKD-EPI formula has not been extensively validated. Use of the eGFR is not recommended in the following populations: Individuals with unstable creatinine concentrations, including patients and those with serious co-morbid conditions. Patients with extremes in muscle mass or diet. The data above are obtained from the National Kidney Disease Education Program (NKDEP) which additionally recommends that when the eGFR is used in patients with extremes of body mass index for purposes of drug dosing, the eGFR should be multiplied by the estimated BMI. [facility] CHEM PANEL Chloride Lvl 105 meq/L 95 - 109 03/19/2018 [facility] CHEM PANEL CO2 29 meq/L 24 - 32 03/19/2018 [facility] CHEM PANEL Potassium Lvl 4.4 meq/L 3.5 - 5.1 03/19/2018 [facility] CHEM PANEL Calcium Lvl 9.1 mg/dL 8.5 - 10.5 03/19/2018 [facility] CHEM PANEL BUN 14 mg/dL 7 - 22 03/19/2018 [facility] CHEM PANEL Glucose Lvl 83 mg/dL 70 - 99 03/19/2018 [facility] CHEM PANEL Creatinine Lvl 0.90 mg/dL 0.50 - 1.40 03/19/2018 [facility] CHEM PANEL Sodium Lvl 138 meq/L 135 - 145 03/19/2018 [facility] CHEM PANEL AGAP 8.4 meq/L 10.0 - 20.0 03/19/2018 [facility] [place] Monocytes # 0.3 K/CMM 0.0 - 0.8 03/19/2018 [facility] Lymphocytes # 1.6 K/CMM 1.0 - 5.5 03/19/2018 [facility] HEMATOLOGY Eosinophils # 0.3 K/CMM 0.0 - 0.5 03/19/2018 [facility] Lymphocytes 26.6 % 20.0 - 40.0 03/19/2018 [facility] Basophils # 0.1 K/CMM 0.0 - 0.2 03/19/2018 [facility] Monocytes 5.1 % 2.0 - 12.0 03/19/2018 [facility] Basophils 1.1 % 0.0 - 1.0 03/19/2018 [facility] Neutrophils # 3.9 K/CMM 1.5 - 8.1 03/19/2018 [facility] Eosinophils 4.1 % 0.0 - 4.0 03/19/2018 [facility] Segs 63.1 % 45.0 - 75.0 03/19/2018 [facility] Platelet 328 K/CMM 133 - 450 03/19/2018 [facility] MPV 7.0 fL 7.4 - 10.4 03/19/2018 [facility] HEMATOLOGY MCV 88.9 fL 80.0 - 98.0 03/19/2018 [facility] HEMATOLOGY Hct 40.1 % 36.0 - 48.0 03/19/2018 [facility] HEMATOLOGY Hgb 12.9 g/dL 12.0 - 16.0 03/19/2018 [facility] HEMATOLOGY RDW 15.2 % 11.5 - 14.5 03/19/2018 [facility] MCH 28.6 pg 27.0 - 31.0 03/19/2018 [facility] MCHC 32.2 g/dL 32.0 - 36.0 03/19/2018 [facility] HEMATOLOGY RBC 4.51 M/CMM 4.20 - 5.40 03/19/2018 [facility] HEMATOLOGY WBC 6.2 K/CMM 3.7 - 10.4 03/19/2018 [facility] URINE AND STOOL UA Ketones Negative mg/dL Negative mg/dL 03/19/2018 [facility] URINE AND STOOL UA Bili Negative *NA* (03/19/18 10:47 AM) Negative 03/19/2018 [facility] URINE AND STOOL UA Blood Negative (03/19/18 10:47 AM) Negative 03/19/2018 [facility] URINE AND STOOL UA Nitrite Negative (03/19/18 10:47 AM) Negative 03/19/2018 [facility] URINE AND STOOL UA Glucose Negative mg/dL Negative mg/dL 03/19/2018 [facility] URINE AND STOOL UA pH 5.0 5.0 - 8.0 03/19/2018 [facility] URINE AND STOOL UA Protein Negative mg/dL Negative mg/dL 03/19/2018 [facility] URINE AND STOOL UA WBC 3 /HPF 0 - 5 03/19/2018 [facility] URINE AND STOOL UA RBC 2 /HPF 0 - 2 03/19/2018 [facility] URINE AND STOOL UA Leuk Est Negative (03/19/18 10:47 AM) Negative 03/19/2018 [facility] URINE AND STOOL UA Sq Epi Many /LPF Few /LPF 03/19/2018 [facility] URINE AND STOOL UA Urobilinogen <=1.0 mg/dL 0.1 - 1.0 03/19/2018 [facility] URINE AND STOOL UA Bacteria Few /HPF None Seen /HPF 03/19/2018 [facility] URINE AND STOOL UA Spec Grav 1.006 <=1.030 03/19/2018 [facility] URINE AND STOOL UA Turbidity Slight *ABN* (03/19/18 10:47 AM) Clear 03/19/2018 [facility] URINE AND STOOL UA Color Light Yellow *NA* (03/19/18 10:47 AM) Yellow 03/19/2018 [facility] URINE CHEM U Preg Negative (03/19/18 10:47 AM) Negative 03/19/2018 [facility] URINE AND STOOL UA Color Ltyellow 03/18/2018 [facility] URINE AND STOOL UA Urobilinogen <=1.0 mg/dL 0.1 - 1.0 03/18/2018 [facility] URINE AND STOOL UA Sq Epi Moderate /LPF Few /LPF 03/18/2018 [facility] URINE AND STOOL UA Bacteria Occasional /HPF None Seen /HPF 03/18/2018 [facility] URINE AND STOOL UA WBC 3 /HPF 0 - 5 03/18/2018 [facility] URINE AND STOOL UA Mucus Few /LPF None Seen /LPF 03/18/2018 [facility] URINE AND STOOL UA RBC 1 /HPF 0 - 2 03/18/2018 [facility] URINE AND STOOL UA Turbidity Clear (03/18/18 10:13 AM) Clear 03/18/2018 [facility] URINE AND STOOL UA Spec Grav 1.010 <=1.030 03/18/2018 [facility] URINE AND STOOL UA pH 6.0 5.0 - 8.0 03/18/2018 [facility] URINE AND STOOL UA Ketones Negative mg/dL Negative mg/dL 03/18/2018 [facility] URINE AND STOOL UA Protein Negative mg/dL Negative mg/dL 03/18/2018 [facility] URINE AND STOOL UA Leuk Est Negative (03/18/18 10:13 AM) Negative 03/18/2018 [facility] URINE AND STOOL UA Glucose Negative mg/dL Negative mg/dL 03/18/2018 [facility] URINE AND STOOL UA Nitrite Negative (03/18/18 10:13 AM) Negative 03/18/2018 [facility] URINE AND STOOL UA Bili Negative *NA* (03/18/18 10:13 AM) Negative 03/18/2018 [facility] URINE AND STOOL UA Blood Negative (03/18/18 10:13 AM) Negative 03/18/2018 [facility] CHEM PANEL Magnesium Lvl 2.1 mg/dL 1.8 - 2.4 03/18/2018 [facility] CHEM PANEL Lipase Lvl 159 unit/L 73 - 393 03/18/2018 [facility] CHEM PANEL eGFR 80 mL/min/1.73m2 03/18/2018 Result Comment: The eGFR is calculated using the CKD-EPI formula. In most young, healthy individuals the eGFR will be >90 mL/min/1.73m2. The eGFR declines with age. An eGFR of 60-89 may be normal in some populations, particularly the elderly, for whom the CKD-EPI formula has not been extensively validated. Use of the eGFR is not recommended in the following populations: Individuals with unstable creatinine concentrations, including patients and those with serious co-morbid conditions. Patients with extremes in muscle mass or diet. The data above are obtained from the [employer] Education Program (NK[employer]) which additionally recommends that when the eGFR is used in patients with extremes of body mass index for purposes of drug dosing, the eGFR should be multiplied by the estimated BMI. [facility] CHEM PANEL AST 17 unit/L 0 - 37 03/18/2018 [facility] CHEM PANEL ALT 26 unit/L 0 - 65 03/18/2018 [facility] CHEM PANEL Albumin Lvl 3.0 g/dL 3.5 - 5.0 03/18/2018 [facility] CHEM PANEL Total Protein 6.3 g/dL 6.4 - 8.4 03/18/2018 [facility] CHEM PANEL Calcium Lvl 7.7 mg/dL 8.5 - 10.5 03/18/2018 [facility] CHEM PANEL CO2 23 meq/L 24 - 32 03/18/2018 [facility] CHEM PANEL Chloride Lvl 111 meq/L 95 - 109 03/18/2018 [facility] CHEM PANEL Potassium Lvl 3.9 meq/L 3.5 - 5.1 03/18/2018 [facility] CHEM PANEL Bili Total 0.1 mg/dL 0.2 - 1.3 03/18/2018 [facility] CHEM PANEL Alk Phos 102 unit/L 39 - 136 03/18/2018 [facility] CHEM PANEL Glucose Lvl 101 mg/dL 70 - 99 03/18/2018 [facility] CHEM PANEL BUN 17 mg/dL 7 - 22 03/18/2018 [facility] CHEM PANEL Creatinine Lvl 0.91 mg/dL 0.50 - 1.40 03/18/2018 [facility] CHEM PANEL Sodium Lvl 144 meq/L 135 - 145 03/18/2018 [facility] CHEM PANEL A/G Ratio 0.9 0.7 - 1.6 03/18/2018 [facility] CHEM PANEL Globulin 3.3 g/dL 2.7 - 4.2 03/18/2018 [facility] CHEM PANEL B/C Ratio 19 6 - 25 03/18/2018 [facility] CHEM PANEL AGAP 13.9 meq/L 10.0 - 20.0 03/18/2018 [facility] ENDOCRINOLOGY S Preg Negative *NA* (03/18/18 9:01 AM) Negative 03/18/2018 [facility] HEMATOLOGY RBC 4.44 M/CMM 4.20 - 5.40 03/18/2018 [facility] HEMATOLOGY WBC 5.4 K/CMM 3.7 - 10.4 03/18/2018 [facility] HEMATOLOGY MCHC 34.1 g/dL 32.0 - 36.0 03/18/2018 [facility] HEMATOLOGY MPV 7.4 fL 7.4 - 10.4 03/18/2018 [facility] HEMATOLOGY Platelet 291 K/CMM 133 - 450 03/18/2018 [facility] HEMATOLOGY RDW 15.2 % 11.5 - 14.5 03/18/2018 [facility] MCH 29.8 pg 27.0 - 31.0 03/18/2018 [facility] HEMATOLOGY Hgb 13.2 g/dL 12.0 - 16.0 03/18/2018 [facility] HEMATOLOGY MCV 87.6 fL 80.0 - 98.0 03/18/2018 [facility] HEMATOLOGY Hct 38.9 % 36.0 - 48.0 03/18/2018 [facility] HEMATOLOGY Eosinophils # 0.2 K/CMM 0.0 - 0.5 03/18/2018 [facility] HEMATOLOGY Basophils # 0.1 K/CMM 0.0 - 0.2 03/18/2018 [facility] HEMATOLOGY Segs 61.9 % 45.0 - 75.0 03/18/2018 [facility] HEMATOLOGY Basophils 1.4 % 0.0 - 1.0 03/18/2018 [facility] HEMATOLOGY Monocytes # 0.2 K/CMM 0.0 - 0.8 03/18/2018 [facility] HEMATOLOGY Lymphocytes # 1.6 K/CMM 1.0 - 5.5 03/18/2018 [facility] HEMATOLOGY Lymphocytes 28.6 % 20.0 - 40.0 03/18/2018 [facility] HEMATOLOGY Eosinophils 3.9 % 0.0 - 4.0 03/18/2018 [facility] HEMATOLOGY Neutrophils # 3.4 K/CMM 1.5 - 8.1 03/18/2018 [facility] HEMATOLOGY Monocytes 4.2 % 2.0 - 12.0 03/18/2018 [facility] ED Abdomen/Pelvis IV contrast only CT ED Abdomen/Pelvis IV contrast only CT PROCEDURE: CT abdomen pelvis with contrast. Reconstruction images. INDICATION: Epigastric and left upper abdominal pain after hernia repair March 01, 2018.. TECHNIQUE: GI CONTRAST: None. IV CONTRAST: 100 cc of Omnipaque-300 Axial post-contrast images were obtained from the lower chest to the symphysis pubis. Coronal and sagittal reconstruction images were performed. CT imaging performed at this location utilizes radiation dose optimization techniques which include one or more of the following: -Automated exposure control -Adjustment of the mA and/or kV according to patient size -Use of iterative reconstruction technique Total CT radiation dose: YIA=3416.51 mGy-cm COMPARISON: CT February 14, 2018. FINDINGS: LOWER CHEST: Minimal bibasilar plate like atelectasis is seen. The heart is normal in size. SOLID ORGANS: No focal hepatic lesion or intrahepatic biliary ductal dilatation is seen. Cholecystectomy clips are seen. The spleen, pancreas, and adrenal glands are normal in appearance. Both kidneys demonstrate normal corticomedullary phase of enhancement. Small exophytic cortical cyst of the left kidney as seen on series 2, image 53. Nonobstructing punctate left renal calculus is present on the same image. No ureteral calculus or hydronephrosis is noted. No renal mass is identified. BOWEL: The small bowel and colon are normal in caliber without wall thickening. A normal appendix is identified. PERITONEUM: No free intraperitoneal air is visualized. Repair mesh markers are in place at the supraumbilical ventral fat-containing hernia. No fluid collection is seen. No fat stranding is identified. RETROPERITONEUM: Normal caliber of the abdominal aorta is noted. No lymphadenopathy is seen. PELVIS: Small amount of free fluid is present in the right adnexal region. The visualized urinary bladder wall is normal thickness. Organs of reproduction are unremarkable. MUSCULOSKELETAL: No acute osseous abnormality is seen. No destructive lytic or blastic osseous lesion is noted. IMPRESSION: 1. Interval hernia repair mesh placement at supraumbilical fat-containing hernia. No surrounding fluid collection or inflammatory change. 2. No acute abnormality of the abdomen or pelvis. 3. Left kidney mid pole punctate nonobstructing calculus. 4. Small amount of free fluid in the pelvis. SL: [id number] 03/18/2018 - - Read by: Kirby Schmidt MD Dictated Date/time: 03/18/18 10:41 Electronically Signed by: Kirby Schmidt MD 03/18/18 10:47 FINAL REPORT [facility] Chest 1view DX Chest 1view DX Patient Name: ANGELA ESPINOSA : 1975; Age: 42 years Female MR: [id number] Study: Chest 1view DX Order Time: 03/18/2018 8:47 AM CDT Clinical Indication: - pain s/p surgery. COMPARISON: January 2018. June 2017. December 2016. October 07, 2016. FINDINGS: Views: 1 LUNGS: There is normal lung volume. Left lower lobe atelectasis. There are no pleural effusions. There is no pneumothorax. The pulmonary vasculature is normal. MEDIASTINUM: The cardiac silhouette is normal. The trachea is midline. BONES: There are no clinically significant osseous abnormalities noted. IMPRESSION: Left lower lobe atelectasis. SL: [id number] 03/18/2018 - - Read by: Bg Monge MD Dictated Date/time: 03/18/18 09:19 Electronically Signed by: Bg Monge MD 03/18/18 09:20 FINAL REPORT [facility] Automated blood basophil count (count/volume) Automated blood basophil count (count/volume) 0.0 0.0 - 0.1 03/04/2018 [facility] Automated blood basophil count as percentage of total leukocytes Automated blood basophil count as percentage of total leukocytes 0.6 0.0 - 1.0 03/04/2018 [facility] Automated blood eosinophil count Automated blood eosinophil count 0.1 0.0 - 0.4 03/04/2018 [facility] Automated blood eosinophil count as percentage of total leukocytes Automated blood eosinophil count as percentage of total leukocytes 2.3 0.0 - 6.0 03/04/2018 [facility] Automated blood hematocrit (volume fraction) Automated blood hematocrit (volume fraction) 36.8 34.2 - 44.1 03/04/2018 [facility] Automated blood lymphocyte count as percentage ot total leukocytes Automated blood lymphocyte count as percentage ot total leukocytes 20.3 18.0 - 39.1 03/04/2018 [facility] Automated blood monocyte count as percentage of total leukocytes Automated blood monocyte count as percentage of total leukocytes 6.0 4.4 - 11.3 03/04/2018 [facility] Automated blood neutrophil count Automated blood neutrophil count 4.4 2.1 - 6.9 03/04/2018 [facility] Automated blood platelet count (count/volume) Automated blood platelet count (count/volume) 264 140 - 360 03/04/2018 [facility] Automated blood segmented neutrophil count as percentage of total leukocytes Automated blood segmented neutrophil count as percentage of total leukocytes 70.5 38.7 - 80.0 03/04/2018 [facility] Automated erythrocyte mean corpuscular hemoglobin (mass per erythrocyte) Automated erythrocyte mean corpuscular hemoglobin (mass per erythrocyte) 29.8 28 - 32 03/04/2018 [facility] Automated erythrocyte mean corpuscular hemoglobin concentration measurement (mass/volume) Automated erythrocyte mean corpuscular hemoglobin concentration measurement (mass/volume) 34.0 31 - 35 03/04/2018 [facility] Automated erythrocyte mean corpuscular volume Automated erythrocyte mean corpuscular volume 87.6 81 - 99 03/04/2018 [facility] Automated urine sediment leukocyte count by microscopy (number/high power field) Automated urine sediment leukocyte count by microscopy (number/high power field) NONE 0 - 5 03/04/2018 [facility] Bacteria detection in urine sediment by light microscopy Bacteria detection in urine sediment by light microscopy FEW NONE 03/04/2018 [facility] Blood erythrocytes automated count (number/volume) Blood erythrocytes automated count (number/volume) 4.20 3.6 - 5.1 03/04/2018 [facility] Blood hemoglobin measurement (moles/volume) Blood hemoglobin measurement (moles/volume) 12.5 12.0 - 16.0 03/04/2018 [facility] Blood leukocytes automated count (number/volume) Blood leukocytes automated count (number/volume) 6.21 4.8 - 10.8 03/04/2018 [facility] Blood lymphocytes count (number/volume) Blood lymphocytes count (number/volume) 1.3 1.0 - 3.2 03/04/2018 [facility] Blood monocytes automated count (number/volume) Blood monocytes automated count (number/volume) 0.4 0.2 - 0.8 03/04/2018 [facility] Epithelial cells detection in urine sediment by light microscopy Epithelial cells detection in urine sediment by light microscopy FEW NONE 03/04/2018 [facility] Erythrocytes detection in urine sediment by light microscopy Erythrocytes detection in urine sediment by light microscopy null 0 - 5 03/04/2018 [facility] Estimated glomerular filtration rate (GFR) determination Estimated glomerular filtration rate (GFR) determination null 60 03/04/2018 [facility] Glucose measurement Glucose measurement 122 74 - 118 03/04/2018 [facility] Plasma globulin measurement (mass/volume) Plasma globulin measurement (mass/volume) 3.2 2.3 - 3.5 03/04/2018 [facility] Serum or plasma alanine aminotransferase measurement (enzymatic activity/volume) Serum or plasma alanine aminotransferase measurement (enzymatic activity/volume) 24 0 - 55 03/04/2018 [facility] Serum or plasma albumin measurement (mass/volume) Serum or plasma albumin measurement (mass/volume) 3.5 3.5 - 5.0 03/04/2018 [facility] Serum or plasma albumin/globulin mass ratio Serum or plasma albumin/globulin mass ratio 1.1 0.8 - 2.0 03/04/2018 [facility] Serum or plasma alkaline phosphatase measurement (enzymatic activity/volume) Serum or plasma alkaline phosphatase measurement (enzymatic activity/volume) 107 40 - 150 03/04/2018 [facility] Serum or plasma anion gap Serum or plasma anion gap 15.3 8 - 16 03/04/2018 [facility] Serum or plasma calcium measurement (mass/volume) Serum or plasma calcium measurement (mass/volume) 9.3 8.4 - 10.2 03/04/2018 [facility] Serum or plasma carbon dioxide, total measurement (moles/volume) Serum or plasma carbon dioxide, total measurement (moles/volume) 22 22 - 29 03/04/2018 [facility] Serum or plasma chloride measurement (moles/volume) Serum or plasma chloride measurement (moles/volume) 105 98 - 107 03/04/2018 [facility] Serum or plasma creatinine measurement (mass/volume) Serum or plasma creatinine measurement (mass/volume) 0.99 0.57 - 1.11 03/04/2018 [facility] Serum or plasma lipase measurement (enzymatic activity/volume) Serum or plasma lipase measurement (enzymatic activity/volume) 32 8 - 78 03/04/2018 [facility] Serum or plasma potassium measurement (moles/volume) Serum or plasma potassium measurement (moles/volume) 4.3 3.5 - 5.1 03/04/2018 [facility] Serum or plasma protein measurement (mass/volume) Serum or plasma protein measurement (mass/volume) 6.7 6.5 - 8.1 03/04/2018 [facility] Serum or plasma sodium measurement (moles/volume) Serum or plasma sodium measurement (moles/volume) 138 136 - 145 03/04/2018 [facility] Serum or plasma total bilirubin measurement (mass/volume) Serum or plasma total bilirubin measurement (mass/volume) 0.2 0.2 - 1.2 03/04/2018 [facility] Serum or plasma urea nitrogen measurement (mass/volume) Serum or plasma urea nitrogen measurement (mass/volume) 16 7 - 26 03/04/2018 [facility] Serum or plasma urea nitrogen/creatinine mass ratio Serum or plasma urea nitrogen/creatinine mass ratio 16 6 - 25 03/04/2018 [facility] Specific gravity of Urine by Test strip Specific gravity of Urine by Test strip 1.010 1.010 - 1.025 03/04/2018 [facility] Urine clarity Urine clarity SL CLOUDY CLEAR 03/04/2018 [facility] Urine color determination Urine color determination YELLOW YELLOW 03/04/2018 [facility] Urine erythrocytes detection Urine erythrocytes detection 3+ NEGATIVE 03/04/2018 [facility] Urine glucose detection Urine glucose detection NEGATIVE NEGATIVE 03/04/2018 [facility] Urine ketones detection by automated test strip Urine ketones detection by automated test strip NEGATIVE NEGATIVE 03/04/2018 [facility] Urine leukocyte esterase detection by dipstick Urine leukocyte esterase detection by dipstick NEGATIVE NEGATIVE 03/04/2018 [facility] Urine nitrite detection Urine nitrite detection NEGATIVE NEGATIVE 03/04/2018 [facility] Urine pH measurement by automated test strip Urine pH measurement by automated test strip 6 5 - 7 03/04/2018 [facility] Urine protein measurement by test strip (mass/volume) Urine protein measurement by test strip (mass/volume) NEGATIVE NEGATIVE 03/04/2018 [facility] Urine total bilirubin measurement (mass/volume) Urine total bilirubin measurement (mass/volume) NEGATIVE NEGATIVE 03/04/2018 [facility] Urine urobilinogen measurement by test strip (mass/volume) Urine urobilinogen measurement by test strip (mass/volume) 0.2 0.2 - 1 03/04/2018 [facility] Red Cell Distribution Width 13.8 11.7 - 14.4 03/04/2018 [facility] IM GRANULOCYTES % 0.3 0.0 - 1.0 03/04/2018 [facility] Absolute Immature Granulocyte (auto 0.02 0 - 0.1 03/04/2018 [facility] Aspartate Amino Transf (AST/SGOT) 20 5 - 34 03/04/2018 [facility] URINE AND STOOL UA Urobilinogen <=1.0 mg/dL 0.1 - 1.0 03/02/2018 [facility] URINE AND STOOL UA Mucus Moderate /LPF None Seen /LPF 03/02/2018 [facility] URINE AND STOOL UA Bacteria Many /HPF None Seen /HPF 03/02/2018 [facility] URINE AND STOOL UA pH 5.0 5.0 - 8.0 03/02/2018 [facility] URINE AND STOOL UA Leuk Est Negative (03/01/18 7:58 PM) Negative 03/02/2018 [facility] URINE AND STOOL UA Sq Epi Many /LPF Few /LPF 03/02/2018 [facility] URINE AND STOOL UA WBC 5 /HPF 0 - 5 03/02/2018 [facility] URINE AND STOOL UA RBC 12 /HPF 0 - 2 03/02/2018 [facility] URINE AND STOOL UA Nitrite Negative (03/01/18 7:58 PM) Negative 03/02/2018 [facility] URINE AND STOOL UA Blood Negative (03/01/18 7:58 PM) Negative 03/02/2018 [facility] URINE AND STOOL UA Turbidity Marked *ABN* (03/01/18 7:58 PM) Clear 03/02/2018 [facility] URINE AND STOOL UA Spec Grav 1.019 <=1.030 03/02/2018 [facility] URINE AND STOOL UA Color Yellow *NA* (03/01/18 7:58 PM) Yellow 03/02/2018 [facility] URINE AND STOOL UA Ketones Negative mg/dL Negative mg/dL 03/02/2018 [facility] URINE AND STOOL UA Bili Negative *NA* (03/01/18 7:58 PM) Negative 03/02/2018 [facility] URINE AND STOOL UA Protein Negative mg/dL Negative mg/dL 03/02/2018 [facility] URINE AND STOOL UA Glucose Negative mg/dL Negative mg/dL 03/02/2018 [facility] CHEM PANEL Lipase Lvl 130 unit/L 73 - 393 03/02/2018 [facility] ELECTROLYTES AGAP 15.3 meq/L 10.0 - 20.0 03/02/2018 [facility] ELECTROLYTES B/C Ratio 20 6 - 25 03/02/2018 [facility] ELECTROLYTES Globulin 3.4 g/dL 2.7 - 4.2 03/02/2018 [facility] ELECTROLYTES A/G Ratio 1.0 0.7 - 1.6 03/02/2018 [facility] ELECTROLYTES Sodium Lvl 144 meq/L 135 - 145 03/02/2018 [facility] ELECTROLYTES BUN 19 mg/dL 7 - 22 03/02/2018 [facility] ELECTROLYTES Creatinine Lvl 0.97 mg/dL 0.50 - 1.40 03/02/2018 [facility] ELECTROLYTES Potassium Lvl 4.3 meq/L 3.5 - 5.1 03/02/2018 [facility] ELECTROLYTES Chloride Lvl 107 meq/L 95 - 109 03/02/2018 [facility] ELECTROLYTES Calcium Lvl 8.7 mg/dL 8.5 - 10.5 03/02/2018 [facility] ELECTROLYTES Total Protein 6.7 g/dL 6.4 - 8.4 03/02/2018 [facility] ELECTROLYTES CO2 26 meq/L 24 - 32 03/02/2018 [facility] ELECTROLYTES AST 20 unit/L 0 - 37 03/02/2018 [facility] ELECTROLYTES Albumin Lvl 3.3 g/dL 3.5 - 5.0 03/02/2018 [facility] ELECTROLYTES ALT 28 unit/L 0 - 65 03/02/2018 [facility] ELECTROLYTES eGFR 73 mL/min/1.73m2 03/02/2018 Result Comment: The eGFR is calculated using the CKD-EPI formula. In most young, healthy individuals the eGFR will be >90 mL/min/1.73m2. The eGFR declines with age. An eGFR of 60-89 may be normal in some populations, particularly the elderly, for whom the CKD-EPI formula has not been extensively validated. Use of the eGFR is not recommended in the following populations: Individuals with unstable creatinine concentrations, including patients and those with serious co-morbid conditions. Patients with extremes in muscle mass or diet. The data above are obtained from the National Kidney Disease Education Program (NKDEP) which additionally recommends that when the eGFR is used in patients with extremes of body mass index for purposes of drug dosing, the eGFR should be multiplied by the estimated BMI. [facility] ELECTROLYTES Alk Phos 106 unit/L 39 - 136 03/02/2018 [facility] ELECTROLYTES Bili Total 0.2 mg/dL 0.2 - 1.3 03/02/2018 [facility] ELECTROLYTES Glucose Lvl 84 mg/dL 70 - 99 03/02/2018 [facility] HEMATOLOGY Monocytes # 0.5 K/CMM 0.0 - 0.8 03/02/2018 [facility] HEMATOLOGY Eosinophils # 0.2 K/CMM 0.0 - 0.5 03/02/2018 [facility] HEMATOLOGY Basophils # 0.1 K/CMM 0.0 - 0.2 03/02/2018 [facility] HEMATOLOGY Lymphocytes # 1.8 K/CMM 1.0 - 5.5 03/02/2018 [facility] HEMATOLOGY Monocytes 5.5 % 2.0 - 12.0 03/02/2018 [facility] HEMATOLOGY Lymphocytes 20.4 % 20.0 - 40.0 03/02/2018 [facility] HEMATOLOGY Segs 71.2 % 45.0 - 75.0 03/02/2018 [facility] HEMATOLOGY Neutrophils # 6.3 K/CMM 1.5 - 8.1 03/02/2018 [facility] Basophils 0.7 % 0.0 - 1.0 03/02/2018 [facility] Eosinophils 2.2 % 0.0 - 4.0 03/02/2018 [facility] MCV 86.9 fL 80.0 - 98.0 03/02/2018 [facility] Platelet 295 K/CMM 133 - 450 03/02/2018 [facility] RDW 14.6 % 11.5 - 14.5 03/02/2018 [facility] MPV 7.0 fL 7.4 - 10.4 03/02/2018 [facility] WBC 8.8 K/CMM 3.7 - 10.4 03/02/2018 [facility] Hct 36.9 % 36.0 - 48.0 03/02/2018 [facility] Hgb 12.5 g/dL 12.0 - 16.0 03/02/2018 [facility] RBC 4.24 M/CMM 4.20 - 5.40 03/02/2018 [facility] MCHC 33.8 g/dL 32.0 - 36.0 03/02/2018 [facility] MCH 29.4 pg 27.0 - 31.0 03/02/2018 [facility] Abdomen AP DX Abdomen AP DX Patient Name: ANGELA ESPINOSA : 1975; Age: 42 years y/o Female MR: [id number] * ABDOMEN, 1 view HISTORY: Acute generalized abdominal pain. History of surgery this morning. COMPARISON: None TECHNIQUE: A supine radiograph of the abdomen was obtained. FINDINGS: The soft tissue outlines and bowel gas pattern are unremarkable. There is no evidence of obstruction or ileus. There are no unusual intra-abdominal calcifications. There are surgical clips in the right upper quadrant consistent with a prior cholecystectomy. There are postoperative change involving the mid abdominal wall consistent with an abdominal wall hernia repair. Small metallic circular densities are noted in this region. The regional skeleton is unremarkable. IMPRESSION: 1. Benign appearance the abdomen. SL: TOVA 03/01/2018 - - Read by: Romain Leavitt MD Dictated Date/time: 03/01/18 19:10 Electronically Signed by: Romain Leavitt MD 03/01/18 19:11 FINAL REPORT [facility] CHEM PANEL Lipase Lvl 97 unit/L 73 - 393 02/22/2018 [facility] CHEM PANEL Globulin 3.7 g/dL 2.7 - 4.2 02/22/2018 [facility] CHEM PANEL A/G Ratio 0.9 0.7 - 1.6 02/22/2018 [facility] CHEM PANEL B/C Ratio 11 6 - 25 02/22/2018 [facility] CHEM PANEL AGAP 15.1 meq/L 10.0 - 20.0 02/22/2018 [facility] CHEM PANEL eGFR 60 mL/min/1.73m2 02/22/2018 Result Comment: The eGFR is calculated using the CKD-EPI formula. In most young, healthy individuals the eGFR will be >90 mL/min/1.73m2. The eGFR declines with age. An eGFR of 60-89 may be normal in some populations, particularly the elderly, for whom the CKD-EPI formula has not been extensively validated. Use of the eGFR is not recommended in the following populations: Individuals with unstable creatinine concentrations, including patients and those with serious co-morbid conditions. Patients with extremes in muscle mass or diet. The data above are obtained from the National Kidney Disease Education Program (NKDEP) which additionally recommends that when the eGFR is used in patients with extremes of body mass index for purposes of drug dosing, the eGFR should be multiplied by the estimated BMI. [facility] CHEM PANEL Glucose Lvl 104 mg/dL 70 - 99 02/22/2018 [facility] CHEM PANEL Bili Total 0.2 mg/dL 0.2 - 1.3 02/22/2018 [facility] CHEM PANEL Albumin Lvl 3.2 g/dL 3.5 - 5.0 02/22/2018 [facility] CHEM PANEL Total Protein 6.9 g/dL 6.4 - 8.4 02/22/2018 [facility] CHEM PANEL ALT 40 unit/L 0 - 65 02/22/2018 [facility] CHEM PANEL Alk Phos 104 unit/L 39 - 136 02/22/2018 [facility] CHEM PANEL AST 25 unit/L 0 - 37 02/22/2018 [facility] CHEM PANEL CO2 24 meq/L 24 - 32 02/22/2018 [facility] CHEM PANEL Calcium Lvl 8.4 mg/dL 8.5 - 10.5 02/22/2018 [facility] CHEM PANEL Potassium Lvl 4.1 meq/L 3.5 - 5.1 02/22/2018 [facility] CHEM PANEL Chloride Lvl 108 meq/L 95 - 109 02/22/2018 [facility] CHEM PANEL Sodium Lvl 143 meq/L 135 - 145 02/22/2018 [facility] CHEM PANEL Creatinine Lvl 1.15 mg/dL 0.50 - 1.40 02/22/2018 [facility] CHEM PANEL BUN 13 mg/dL 7 - 22 02/22/2018 [facility] HEMATOLOGY Platelet 272 K/CMM 133 - 450 02/22/2018 [facility] HEMATOLOGY RDW 14.7 % 11.5 - 14.5 02/22/2018 [facility] HEMATOLOGY Hct 38.5 % 36.0 - 48.0 02/22/2018 [facility] HEMATOLOGY MCV 88.3 fL 80.0 - 98.0 02/22/2018 [facility] HEMATOLOGY MPV 7.4 fL 7.4 - 10.4 02/22/2018 [facility] Hgb 13.2 g/dL 12.0 - 16.0 02/22/2018 [facility] MCH 30.3 pg 27.0 - 31.0 02/22/2018 [facility] MCHC 34.3 g/dL 32.0 - 36.0 02/22/2018 [facility] WBC 8.6 K/CMM 3.7 - 10.4 02/22/2018 [facility] RBC 4.36 M/CMM 4.20 - 5.40 02/22/2018 [facility] Lymphocytes 12.4 % 20.0 - 40.0 02/22/2018 [facility] HEMATOLOGY Eosinophils 1.3 % 0.0 - 4.0 02/22/2018 [facility] HEMATOLOGY Segs 81.2 % 45.0 - 75.0 02/22/2018 [facility] Monocytes 4.2 % 2.0 - 12.0 02/22/2018 [facility] HEMATOLOGY Basophils # 0.1 K/CMM 0.0 - 0.2 02/22/2018 [facility] HEMATOLOGY Neutrophils # 7.0 K/CMM 1.5 - 8.1 02/22/2018 [facility] HEMATOLOGY Lymphocytes # 1.1 K/CMM 1.0 - 5.5 02/22/2018 [facility] HEMATOLOGY Basophils 0.9 % 0.0 - 1.0 02/22/2018 [facility] HEMATOLOGY Eosinophils # 0.1 K/CMM 0.0 - 0.5 02/22/2018 [facility] HEMATOLOGY Monocytes # 0.4 K/CMM 0.0 - 0.8 02/22/2018 [facility] URINE AND STOOL UA Urobilinogen <=1.0 mg/dL 0.1 - 1.0 02/22/2018 [facility] URINE AND STOOL UA WBC null 0 - 5 02/22/2018 [facility] URINE AND STOOL UA Blood Small *ABN* (02/22/18 8:51 AM) Negative 02/22/2018 [facility] URINE AND STOOL UA Nitrite Positive *ABN* (02/22/18 8:51 AM) Negative 02/22/2018 [facility] URINE AND STOOL UA Leuk Est Large *ABN* (02/22/18 8:51 AM) Negative 02/22/2018 [facility] URINE AND STOOL UA Ketones Negative mg/dL Negative mg/dL 02/22/2018 [facility] URINE AND STOOL UA Bili Negative *NA* (02/22/18 8:51 AM) Negative 02/22/2018 [facility] URINE AND STOOL UA Mucus Few /LPF None Seen /LPF 02/22/2018 [facility] URINE AND STOOL UA [place] Yeast Many /HPF None Seen /HPF 02/22/2018 [facility] URINE AND STOOL UA RBC 5 /HPF 0 - 2 02/22/2018 [facility] URINE AND STOOL UA Bacteria Many /HPF None Seen /HPF 02/22/2018 [facility] URINE AND STOOL UA Sq Epi Many /LPF Few /LPF 02/22/2018 [facility] URINE AND STOOL UA Spec Grav 1.012 <=1.030 02/22/2018 [facility] URINE AND STOOL UA Glucose Negative mg/dL Negative mg/dL 02/22/2018 [facility] URINE AND STOOL UA Protein Negative mg/dL Negative mg/dL 02/22/2018 [facility] URINE AND STOOL UA pH 7.0 5.0 - 8.0 02/22/2018 [facility] URINE AND STOOL UA Color Yellow *NA* (02/22/18 8:51 AM) Yellow 02/22/2018 [facility] URINE AND STOOL UA Turbidity Marked *ABN* (02/22/18 8:51 AM) Clear 02/22/2018 [facility] Culture: Urine No Growth 02/22/2018 [facility] Abdomen acute series w chest 1 view DX Abdomen acute series w chest 1 view DX Patient Name: ANGELA ESPINOSA : 1975; Age: 42 years Female MR: [id number] Study: Abdomen acute series w chest 1 view DX 02/22/2018 8:38 AM CDT CLINICAL INDICATION: - abd pain/Constipation COMPARISON: None FINDINGS: The lungs are grossly clear. The cardiac silhouette is within normal limits of size. Several small bowel air-fluid levels within the upper abdomen on the upright view. No evidence of significant small bowel dilatation. No pneumatosis or pneumoperitoneum. Large amount of stool within the sigmoid and rectum. No significant osseous abnormalities. IMPRESSION: Large amount of stool within the sigmoid and rectum. Several small bowel air- fluid levels within the upper abdomen likely related to ileus. SL: [id number] 02/22/2018 - - Read by: Maranda Esposito MD Dictated Date/time: 02/22/18 09:10 Electronically Signed by: Maranda Esposito MD 02/22/18 09:12 FINAL REPORT [facility] CHEM PANEL Lipase Lvl 117 unit/L 73 - 393 02/19/2018 [facility] CHEM PANEL Globulin 3.5 g/dL 2.7 - 4.2 02/19/2018 [facility] CHEM PANEL AGAP 17.4 meq/L 10.0 - 20.0 02/19/2018 [facility] CHEM PANEL B/C Ratio 14 6 - 25 02/19/2018 [facility] CHEM PANEL A/G Ratio 0.9 0.7 - 1.6 02/19/2018 [facility] CHEM PANEL eGFR 54 mL/min/1.73m2 02/19/2018 Result Comment: The eGFR is calculated using the CKD-EPI formula. In most young, healthy individuals the eGFR will be >90 mL/min/1.73m2. The eGFR declines with age. An eGFR of 60-89 may be normal in some populations, particularly the elderly, for whom the CKD-EPI formula has not been extensively validated. Use of the eGFR is not recommended in the following populations: Individuals with unstable creatinine concentrations, including patients and those with serious co-morbid conditions. Patients with extremes in muscle mass or diet. The data above are obtained from the National Kidney Disease Education Program (NKDEP) which additionally recommends that when the eGFR is used in patients with extremes of body mass index for purposes of drug dosing, the eGFR should be multiplied by the estimated BMI. [facility] CHEM PANEL Total Protein 6.7 g/dL 6.4 - 8.4 02/19/2018 [facility] CHEM PANEL AST 28 unit/L 0 - 37 02/19/2018 [facility] CHEM PANEL ALT 38 unit/L 0 - 65 02/19/2018 [facility] CHEM PANEL Alk Phos 94 unit/L 39 - 136 02/19/2018 [facility] CHEM PANEL Albumin Lvl 3.2 g/dL 3.5 - 5.0 02/19/2018 [facility] CHEM PANEL Bili Total 0.5 mg/dL 0.2 - 1.3 02/19/2018 [facility] CHEM PANEL Glucose Lvl 109 mg/dL 70 - 99 02/19/2018 [facility] CHEM PANEL BUN 18 mg/dL 7 - 22 02/19/2018 [facility] CHEM PANEL Potassium Lvl 4.4 meq/L 3.5 - 5.1 02/19/2018 [facility] CHEM PANEL Creatinine Lvl 1.25 mg/dL 0.50 - 1.40 02/19/2018 [facility] CHEM PANEL Sodium Lvl 141 meq/L 135 - 145 02/19/2018 [facility] CHEM PANEL Chloride Lvl 106 meq/L 95 - 109 02/19/2018 [facility] CHEM PANEL CO2 22 meq/L 24 - 32 02/19/2018 [facility] CHEM PANEL Calcium Lvl 8.4 mg/dL 8.5 - 10.5 02/19/2018 [facility] HEMATOLOGY Eosinophils 1.8 % 0.0 - 4.0 02/19/2018 [facility] HEMATOLOGY Basophils 0.7 % 0.0 - 1.0 02/19/2018 [facility] HEMATOLOGY Monocytes # 0.3 K/CMM 0.0 - 0.8 02/19/2018 [facility] HEMATOLOGY Neutrophils # 5.3 K/CMM 1.5 - 8.1 02/19/2018 [facility] HEMATOLOGY Lymphocytes # 1.6 K/CMM 1.0 - 5.5 02/19/2018 [facility] HEMATOLOGY Basophils # 0.1 K/CMM 0.0 - 0.2 02/19/2018 [facility] HEMATOLOGY Eosinophils # 0.1 K/CMM 0.0 - 0.5 02/19/2018 [facility] HEMATOLOGY Monocytes 4.1 % 2.0 - 12.0 02/19/2018 [facility] HEMATOLOGY Segs 71.5 % 45.0 - 75.0 02/19/2018 [facility] HEMATOLOGY Lymphocytes 21.9 % 20.0 - 40.0 02/19/2018 [facility] HEMATOLOGY MPV 7.3 fL 7.4 - 10.4 02/19/2018 [facility] HEMATOLOGY Platelet 287 K/CMM 133 - 450 02/19/2018 [facility] HEMATOLOGY RDW 14.7 % 11.5 - 14.5 02/19/2018 [facility] HEMATOLOGY MCH 30.3 pg 27.0 - 31.0 02/19/2018 [facility] HEMATOLOGY MCHC 34.9 g/dL 32.0 - 36.0 02/19/2018 [facility] HEMATOLOGY MCV 86.7 fL 80.0 - 98.0 02/19/2018 [facility] HEMATOLOGY Hct 37.6 % 36.0 - 48.0 02/19/2018 [facility] HEMATOLOGY RBC 4.33 M/CMM 4.20 - 5.40 02/19/2018 [facility] HEMATOLOGY Hgb 13.1 g/dL 12.0 - 16.0 02/19/2018 [facility] HEMATOLOGY WBC 7.5 K/CMM 3.7 - 10.4 02/19/2018 [facility] URINE AND STOOL UA Urobilinogen <=1.0 mg/dL 0.1 - 1.0 02/19/2018 [facility] URINE AND STOOL UA Color Ltyellow 02/19/2018 [facility] URINE AND STOOL UA RBC 4 /HPF 0 - 2 02/19/2018 [facility] URINE AND STOOL UA WBC 2 /HPF 0 - 5 02/19/2018 [facility] URINE AND STOOL UA Bacteria Moderate /HPF None Seen /HPF 02/19/2018 [facility] URINE AND STOOL UA Blood Negative (02/19/18 8:22 AM) Negative 02/19/2018 [facility] URINE AND STOOL UA Bili Negative *NA* (02/19/18 8:22 AM) Negative 02/19/2018 [facility] URINE AND STOOL UA Nitrite Negative (02/19/18 8:22 AM) Negative 02/19/2018 [facility] URINE AND STOOL UA Sq Epi Occasional /LPF Few /LPF 02/19/2018 [facility] URINE AND STOOL UA Leuk Est Negative (02/19/18 8:22 AM) Negative 02/19/2018 [facility] URINE AND STOOL UA Turbidity Slight *ABN* (02/19/18 8:22 AM) Clear 02/19/2018 [facility] URINE AND STOOL UA Protein Negative mg/dL Negative mg/dL 02/19/2018 [facility] URINE AND STOOL UA Glucose Negative mg/dL Negative mg/dL 02/19/2018 [facility] URINE AND STOOL UA pH 7.0 5.0 - 8.0 02/19/2018 [facility] URINE AND STOOL UA Spec Grav 1.010 <=1.030 02/19/2018 [facility] URINE AND STOOL UA Ketones Negative mg/dL Negative mg/dL 02/19/2018 [facility] URINE AND STOOL UA Bacteria Occasional /HPF None Seen /HPF 02/14/2018 [facility] URINE AND STOOL UA Mucus Few /LPF None Seen /LPF 02/14/2018 [facility] URINE AND STOOL UA Sq Epi Moderate /LPF Few /LPF 02/14/2018 [facility] URINE AND STOOL UA Leuk Est Negative (02/14/18 10:08 AM) Negative 02/14/2018 [facility] URINE AND STOOL UA WBC 2 /HPF 0 - 5 02/14/2018 [facility] URINE AND STOOL UA Bili Negative *NA* (02/14/18 10:08 AM) Negative 02/14/2018 [facility] URINE AND STOOL UA Nitrite Negative (02/14/18 10:08 AM) Negative 02/14/2018 [facility] URINE AND STOOL UA Blood Negative (02/14/18 10:08 AM) Negative 02/14/2018 [facility] URINE AND STOOL UA Color Ltyellow 02/14/2018 [facility] URINE AND STOOL UA Turbidity Slight *ABN* (02/14/18 10:08 AM) Clear 02/14/2018 [facility] URINE AND STOOL UA Spec Grav 1.014 <=1.030 02/14/2018 [facility] URINE AND STOOL UA pH 6.0 5.0 - 8.0 02/14/2018 [facility] URINE AND STOOL UA RBC 5 /HPF 0 - 2 02/14/2018 [facility] URINE AND STOOL UA Glucose Negative mg/dL Negative mg/dL 02/14/2018 [facility] URINE AND STOOL UA Protein Negative mg/dL Negative mg/dL 02/14/2018 [facility] URINE AND STOOL UA Ketones Negative mg/dL Negative mg/dL 02/14/2018 [facility] URINE AND STOOL UA Urobilinogen <=1.0 mg/dL 0.1 - 1.0 02/14/2018 [facility] CARDIAC ENZYMES Troponin-I null 0.00 - 0.40 02/14/2018 [facility] CHEM PANEL Lipase Lvl 187 unit/L 73 - 393 02/14/2018 [facility] CHEM PANEL Amylase Lvl 85 unit/L 25 - 115 02/14/2018 [facility] CHEM PANEL eGFR 70 mL/min/1.73m2 02/14/2018 Result Comment: The eGFR is calculated using the CKD-EPI formula. In most young, healthy individuals the eGFR will be >90 mL/min/1.73m2. The eGFR declines with age. An eGFR of 60-89 may be normal in some populations, particularly the elderly, for whom the CKD-EPI formula has not been extensively validated. Use of the eGFR is not recommended in the following populations: Individuals with unstable creatinine concentrations, including patients and those with serious co-morbid conditions. Patients with extremes in muscle mass or diet. The data above are obtained from the National Kidney Disease Education Program (NKDEP) which additionally recommends that when the eGFR is used in patients with extremes of body mass index for purposes of drug dosing, the eGFR should be multiplied by the estimated BMI. [facility] CHEM PANEL Albumin Lvl 3.1 g/dL 3.5 - 5.0 02/14/2018 [facility] CHEM PANEL ALT 20 unit/L 0 - 65 02/14/2018 [facility] CHEM PANEL Alk Phos 81 unit/L 39 - 136 02/14/2018 [facility] CHEM PANEL AST 14 unit/L 0 - 37 02/14/2018 [facility] CHEM PANEL Bili Total 0.4 mg/dL 0.2 - 1.3 02/14/2018 [facility] CHEM PANEL Glucose Lvl 85 mg/dL 70 - 99 02/14/2018 [facility] CHEM PANEL BUN 13 mg/dL 7 - 22 02/14/2018 [facility] CHEM PANEL CO2 22 meq/L 24 - 32 02/14/2018 [facility] CHEM PANEL Chloride Lvl 109 meq/L 95 - 109 02/14/2018 [facility] CHEM PANEL Total Protein 6.7 g/dL 6.4 - 8.4 02/14/2018 [facility] CHEM PANEL Calcium Lvl 8.2 mg/dL 8.5 - 10.5 02/14/2018 [facility] CHEM PANEL Creatinine Lvl 1.01 mg/dL 0.50 - 1.40 02/14/2018 [facility] CHEM PANEL Sodium Lvl 141 meq/L 135 - 145 02/14/2018 [facility] CHEM PANEL Potassium Lvl 4.3 meq/L 3.5 - 5.1 02/14/2018 [facility] CHEM PANEL Globulin 3.6 g/dL 2.7 - 4.2 02/14/2018 [facility] CHEM PANEL B/C Ratio 13 6 - 25 02/14/2018 [facility] CHEM PANEL A/G Ratio 0.9 0.7 - 1.6 02/14/2018 [facility] CHEM PANEL AGAP 14.3 meq/L 10.0 - 20.0 02/14/2018 [facility] HEMATOLOGY WBC 6.4 K/CMM 3.7 - 10.4 02/14/2018 [facility] HEMATOLOGY RBC 4.37 M/CMM 4.20 - 5.40 02/14/2018 [facility] HEMATOLOGY MCV 87.5 fL 80.0 - 98.0 02/14/2018 [facility] HEMATOLOGY Hgb 13.1 g/dL 12.0 - 16.0 02/14/2018 [facility] HEMATOLOGY Hct 38.2 % 36.0 - 48.0 02/14/2018 [facility] MCH 30.0 pg 27.0 - 31.0 02/14/2018 [facility] MCHC 34.3 g/dL 32.0 - 36.0 02/14/2018 [facility] MPV 7.5 fL 7.4 - 10.4 02/14/2018 [facility] HEMATOLOGY RDW 14.8 % 11.5 - 14.5 02/14/2018 [facility] HEMATOLOGY Platelet 264 K/CMM 133 - 450 02/14/2018 [facility] HEMATOLOGY INR 0.93 0.85 - 1.17 02/14/2018 [facility] HEMATOLOGY PT 12.5 s 12.0 - 14.7 02/14/2018 [facility] HEMATOLOGY PTT 29.8 s 22.9 - 35.8 02/14/2018 [facility] Basophils # 0.1 K/CMM 0.0 - 0.2 02/14/2018 [facility] HEMATOLOGY Monocytes # 0.4 K/CMM 0.0 - 0.8 02/14/2018 [facility] HEMATOLOGY Eosinophils # 0.1 K/CMM 0.0 - 0.5 02/14/2018 [facility] HEMATOLOGY Lymphocytes # 1.3 K/CMM 1.0 - 5.5 02/14/2018 [facility] HEMATOLOGY Basophils 0.9 % 0.0 - 1.0 02/14/2018 [facility] HEMATOLOGY Neutrophils # 4.5 K/CMM 1.5 - 8.1 02/14/2018 [facility] HEMATOLOGY Monocytes 6.2 % 2.0 - 12.0 02/14/2018 [facility] HEMATOLOGY Lymphocytes 20.4 % 20.0 - 40.0 02/14/2018 [facility] HEMATOLOGY Segs 70.7 % 45.0 - 75.0 02/14/2018 [facility] HEMATOLOGY Eosinophils 1.8 % 0.0 - 4.0 02/14/2018 [facility] ED Abdomen/Pelvis IV contrast only CT ED Abdomen/Pelvis IV contrast only CT Patient Name: ANGELA ESPINOSA : 1975; Age: 42 years Female MR: [id number] Study: ED Abdomen/Pelvis IV contrast only CT 02/14/2018 7:13 AM CDT Clinical Indication: - epigastric pain, diarrhea. upper abdominal pain described as "sharp" for the past week with low grade fever, vomiting and diarrhea, reports Hx of umbilical hernia 1 year ago. COMPARISON: CAT scan December 02, 2017. CAT scan October 25, 2017. TECHNIQUE: Helical imaging was performed diaphragm through the symphysis with IV multiplanar reformations obtained after the administration of IV contrast. CT imaging performed at this location utilizes radiation dose optimization techniques which include one or more of the following: -Automated exposure control -Adjustment of the mA and/or kV according to patient size -Use of iterative reconstruction technique CT Radiation Dose DLP 1278 mGy-cm IV contrast: 100 cc Omnipaque IV FINDINGS: LOWER CHEST: Bibasilar atelectasis. Small umbilical fat-containing hernia. ABDOMEN: No free air. LIVER: Mild fatty change to the liver. Mild hepatomegaly. BILIARY TREE: Normal. GALLBLADDER: Surgically absent. PANCREAS: Normal. SPLEEN: Normal. ADRENALS: Normal. KIDNEYS: No hydronephrosis. Left renal cyst measures 12 Hounsfield units, 7.1 mm. Punctate nonobstructing left renal stones. PELVIS: No pelvic mass. The urinary bladder is normal. BOWEL: No small bowel obstruction. Mild degree of colonic stool. Normal appendix. PERITONEUM: No free intraperitoneal fluid. RETROPERITONEUM: The aorta is normal. There is no pathologic lymphadenopathy. MUSCULOSKELETAL: The skeleton is intact. Stable sclerosis of the bilateral sacroiliac joints. IMPRESSION: 1. Hepatomegaly with fatty infiltration to the liver. 2. Normal appendix. 3. Postcholecystectomy. 4. Nonobstructing left renal stones. SL: [id number] 02/14/2018 - - Read by: Bg Monge MD Dictated Date/time: 02/14/18 10:04 Electronically Signed by: Bg Monge MD 02/14/18 10:16 FINAL REPORT [facility] Capillary blood glucose measurement by glucometer (mass/volume) 106 70 - 120 02/09/2018 [facility] Capillary blood glucose measurement by glucometer (mass/volume) 106 70 - 120 02/09/2018 [facility] Capillary blood glucose measurement by glucometer (mass/volume) 106 70 - 120 02/09/2018 [facility] Capillary blood glucose measurement by glucometer (mass/volume) 106 70 - 120 02/09/2018 [facility] Capillary blood glucose measurement by glucometer (mass/volume) Capillary blood glucose measurement by glucometer (mass/volume) 106 70 - 120 02/09/2018 [facility] Urine human chorionic gonadotropin (hCG) detection NEGATIVE NEGATIVE 02/09/2018 [facility] Urine human chorionic gonadotropin (hCG) detection Urine human chorionic gonadotropin (hCG) detection NEGATIVE NEGATIVE 02/09/2018 [facility] Serum or plasma creatine kinase measurement (enzymatic activity/volume) 75 29 - 168 01/21/2018 [facility] Serum or plasma creatine kinase MB measurement (mass/volume) 0.40 0 - 5.0 01/21/2018 [facility] Troponin I measurement by highly sensitive enzyme immunoassay < 0.001 0 - 0.300 01/21/2018 [facility] Troponin I measurement by highly sensitive enzyme immunoassay < 0.001 0 - 0.300 01/21/2018 [facility] Serum or plasma creatine kinase MB measurement (mass/volume) 0.40 0 - 5.0 01/21/2018 [facility] Troponin I measurement by highly sensitive enzyme immunoassay < 0.001 0 - 0.300 01/21/2018 [facility] Troponin I measurement by highly sensitive enzyme immunoassay < 0.001 0 - 0.300 01/21/2018 [facility] Serum or plasma creatine kinase measurement (enzymatic activity/volume) 75 29 - 168 01/21/2018 [facility] Barbiturates screen, urine Barbiturates screen, urine NEGATIVE NEGATIVE 01/21/2018 [facility] Serum or plasma amylase measurement (enzymatic activity/volume) Serum or plasma amylase measurement (enzymatic activity/volume) 96 25 - 125 01/21/2018 [facility] Serum or plasma choriogonadotropin ( test) detection Serum or plasma choriogonadotropin ( test) detection NEGATIVE NEGATIVE 01/21/2018 [facility] Serum or plasma creatine kinase MB measurement (mass/volume) Serum or plasma creatine kinase MB measurement (mass/volume) 0.40 0 - 5.0 01/21/2018 [facility] Serum or plasma creatine kinase measurement (enzymatic activity/volume) Serum or plasma creatine kinase measurement (enzymatic activity/volume) 75 29 - 168 01/21/2018 [facility] Troponin I measurement by highly sensitive enzyme immunoassay Troponin I measurement by highly sensitive enzyme immunoassay null 0 - 0.300 01/21/2018 [facility] Urine amphetamines detection by screen method > 1000 ng/mL Urine amphetamines detection by screen method > 1000 ng/mL NEGATIVE NEGATIVE 01/21/2018 [facility] Urine benzodiazepines detection by screening method Urine benzodiazepines detection by screening method POSITIVE NEGATIVE 01/21/2018 [facility] Urine cannabinoids detection by screening method Urine cannabinoids detection by screening method POSITIVE NEGATIVE 01/21/2018 [facility] Urine cocaine measurement (mass/volume) Urine cocaine measurement (mass/volume) NEGATIVE NEGATIVE 01/21/2018 [facility] Urine opiates screening test Urine opiates screening test NEGATIVE NEGATIVE 01/21/2018 [facility] Urine phencyclidine detection by screening method Urine phencyclidine detection by screening method NEGATIVE NEGATIVE 01/21/2018 [facility] Urine Methamphetamines Screen NEGATIVE NEGATIVE 01/21/2018 [facility] CHEM PANEL Lipase Lvl 152 unit/L 73 - 393 12/02/2017 [facility] CHEM PANEL A/G Ratio 1.0 0.7 - 1.6 12/02/2017 [facility] CHEM PANEL B/C Ratio 11 6 - 25 12/02/2017 [facility] CHEM PANEL AGAP 11.6 meq/L 10.0 - 20.0 12/02/2017 [facility] CHEM PANEL Globulin 3.4 g/dL 2.7 - 4.2 12/02/2017 [facility] CHEM PANEL eGFR 83 mL/min/1.73m2 12/02/2017 Result Comment: The eGFR is calculated using the CKD-EPI formula. In most young, healthy individuals the eGFR will be >90 mL/min/1.73m2. The eGFR declines with age. An eGFR of 60-89 may be normal in some populations, particularly the elderly, for whom the CKD-EPI formula has not been extensively validated. Use of the eGFR is not recommended in the following populations: Individuals with unstable creatinine concentrations, including patients and those with serious co-morbid conditions. Patients with extremes in muscle mass or diet. The data above are obtained from the National Kidney Disease Education Program (NKDEP) which additionally recommends that when the eGFR is used in patients with extremes of body mass index for purposes of drug dosing, the eGFR should be multiplied by the estimated BMI. [facility] CHEM PANEL Glucose Lvl 94 mg/dL 70 - 99 12/02/2017 [facility] CHEM PANEL Bili Total 0.4 mg/dL 0.2 - 1.3 12/02/2017 [facility] CHEM PANEL Alk Phos 93 unit/L 39 - 136 12/02/2017 [facility] CHEM PANEL AST 12 unit/L 0 - 37 12/02/2017 [facility] CHEM PANEL ALT 17 unit/L 0 - 65 12/02/2017 [facility] CHEM PANEL Potassium Lvl 3.6 meq/L 3.5 - 5.1 12/02/2017 [facility] CHEM PANEL Total Protein 6.9 g/dL 6.4 - 8.4 12/02/2017 [facility] CHEM PANEL Calcium Lvl 8.5 mg/dL 8.5 - 10.5 12/02/2017 [facility] CHEM PANEL CO2 26 meq/L 24 - 32 12/02/2017 [facility] CHEM PANEL Chloride Lvl 109 meq/L 95 - 109 12/02/2017 [facility] CHEM PANEL Sodium Lvl 143 meq/L 135 - 145 12/02/2017 [facility] CHEM PANEL Creatinine Lvl 0.88 mg/dL 0.50 - 1.40 12/02/2017 [facility] CHEM PANEL BUN 10 mg/dL 7 - 22 12/02/2017 [facility] CHEM PANEL Albumin Lvl 3.5 g/dL 3.5 - 5.0 12/02/2017 [facility] ENDOCRINOLOGY S Preg Negative *NA* (12/02/17 7:36 AM) Negative 12/02/2017 [facility] HEMATOLOGY MCH 29.1 pg 27.0 - 31.0 12/02/2017 [facility] HEMATOLOGY MCV 84.5 fL 80.0 - 98.0 12/02/2017 [facility] HEMATOLOGY Hct 37.8 % 36.0 - 48.0 12/02/2017 [facility] HEMATOLOGY Hgb 13.0 g/dL 12.0 - 16.0 12/02/2017 [facility] HEMATOLOGY MPV 7.4 fL 7.4 - 10.4 12/02/2017 [facility] HEMATOLOGY Platelet 278 K/CMM 133 - 450 12/02/2017 [facility] HEMATOLOGY RDW 14.8 % 11.5 - 14.5 12/02/2017 [facility] HEMATOLOGY MCHC 34.5 g/dL 32.0 - 36.0 12/02/2017 [facility] HEMATOLOGY WBC 6.5 K/CMM 3.7 - 10.4 12/02/2017 [facility] HEMATOLOGY RBC 4.47 M/CMM 4.20 - 5.40 12/02/2017 [facility] HEMATOLOGY Basophils # 0.2 K/CMM 0.0 - 0.2 12/02/2017 [facility] HEMATOLOGY Eosinophils # 0.1 K/CMM 0.0 - 0.5 12/02/2017 [facility] HEMATOLOGY Monocytes # 0.3 K/CMM 0.0 - 0.8 12/02/2017 [facility] HEMATOLOGY Lymphocytes # 2.0 K/CMM 1.0 - 5.5 12/02/2017 [facility] HEMATOLOGY Basophils 2.3 % 0.0 - 1.0 12/02/2017 [facility] HEMATOLOGY Eosinophils 2.0 % 0.0 - 4.0 12/02/2017 [facility] HEMATOLOGY Segs-Bands # 3.9 K/CMM 1.5 - 8.1 12/02/2017 [facility] HEMATOLOGY Monocytes 4.8 % 2.0 - 12.0 12/02/2017 [facility] HEMATOLOGY Lymphocytes 30.7 % 20.0 - 40.0 12/02/2017 [facility] HEMATOLOGY Segs 60.2 % 45.0 - 75.0 12/02/2017 [facility] URINE AND STOOL UA Ketones Negative 12/02/2017 [facility] URINE AND STOOL UA Urobilinogen <=1.0 mg/dL 0.1 - 1.0 12/02/2017 [facility] URINE AND STOOL UA Turbidity Clear (12/02/17 7:36 AM) Clear 12/02/2017 [facility] URINE AND STOOL UA Color Yellow *NA* (12/02/17 7:36 AM) Yellow 12/02/2017 [facility] URINE AND STOOL UA WBC 2 /HPF 0 - 5 12/02/2017 [facility] URINE AND STOOL UA Leuk Est Negative (12/02/17 7:36 AM) Negative 12/02/2017 [facility] URINE AND STOOL UA Sq Epi Few /LPF Few /LPF 12/02/2017 [facility] URINE AND STOOL UA RBC 2 /HPF 0 - 2 12/02/2017 [facility] URINE AND STOOL UA Mucus Few /LPF None Seen /LPF 12/02/2017 [facility] URINE AND STOOL UA Bacteria Occasional /HPF None Seen /HPF 12/02/2017 [facility] URINE AND STOOL UA Spec Grav 1.014 <=1.030 12/02/2017 [facility] URINE AND STOOL UA pH 5.0 5.0 - 8.0 12/02/2017 [facility] URINE AND STOOL UA Protein Negative mg/dL Negative mg/dL 12/02/2017 [facility] URINE AND STOOL UA Glucose Negative mg/dL Negative mg/dL 12/02/2017 [facility] URINE AND STOOL UA Nitrite Negative (12/02/17 7:36 AM) Negative 12/02/2017 [facility] URINE AND STOOL UA Blood Negative (12/02/17 7:36 AM) Negative 12/02/2017 [facility] URINE AND STOOL UA Bili Negative *NA* (12/02/17 7:36 AM) Negative 12/02/2017 [facility] Abdomen/Pelvis w IV contrast CT Abdomen/Pelvis w IV contrast CT EXAM: CT abdomen and pelvis HISTORY: Pain right lower quadrant, nausea, vomiting, diarrhea COMPARISON: CT 10/18/2016 TECHNIQUE: Axial images of the abdomen and pelvis with sagittal and coronal reformats. Approximately 100 mL Omnipaque IV contrast given. DLP: [id number] FINDINGS: SOLID ORGANS: Mild fatty change of the liver. Cholecystectomy. Moderate-marked cortical scarring left kidney and moderate scarring right kidney; stable tiny calyceal stone lower left kidney; new 4 mm density in the mid/upper kidney. Small cyst left kidney. The spleen, adrenals, and pancreas are unremarkable. The bladder is unremarkable. Hysterectomy. GI TRACT: No bowel obstruction. Normal appendix. PERITONEUM AND RETROPERITONEUM: No bulky lymph nodes. Small fat-containing ventral hernias. Retroaortic left renal vein. LOWER CHEST: Mild subpleural opacities in the lung bases is slightly increased. Possible tiny pleural effusions bilaterally. BONES: Sclerosis of the sacroiliac joints, left greater than right. IMPRESSION: 1. No acute finding. Normal appendix. 2. 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 Correlate for spondyloarthropathy or enteropathic arthropathy. 3. Mild airspace disease in the lung bases is slightly increased and may reflect dependent atelectasis or an interstitial pneumonia. Possible tiny pleural effusions bilaterally. 4. Small nonobstructing stone left kidney. New 4 mm density in the upper left kidney may reflect a stone. Scarring of both kidneys. Surveillance renal ultrasound can be obtained. 5. Fatty liver. Cholecystectomy. SL: [id number] 12/02/2017 - - Read by: Mukul Villagomez MD Dictated Date/time: 12/02/17 08:40 Electronically Signed by: Mukul Villagomez MD 12/02/17 09:02 FINAL REPORT [facility] Mucus detection in urine sediment by light microscopy FEW RARE 10/26/2017 [facility] Mucus detection in urine sediment by light microscopy FEW RARE 10/26/2017 [facility] Mucus detection in urine sediment by light microscopy FEW RARE 10/26/2017 [facility] Mucus detection in urine sediment by light microscopy Mucus detection in urine sediment by light microscopy FEW RARE 10/26/2017 [facility] URINE AND STOOL UA Ketones Negative *NA* (10/25/17 9:57 PM) Negative 10/26/2017 [facility] URINE AND STOOL UA Bili Negative *NA* (10/25/17 9:57 PM) Negative 10/26/2017 [facility] URINE AND STOOL UA Blood Negative (10/25/17 9:57 PM) Negative 10/26/2017 [facility] URINE AND STOOL UA Urobilinogen 0.2 EU/dL 0.1 - 1.0 10/26/2017 [facility] URINE AND STOOL UA Nitrite Negative (10/25/17 9:57 PM) Negative 10/26/2017 [facility] URINE AND STOOL UA Leuk Est Negative (10/25/17 9:57 PM) Negative 10/26/2017 [facility] URINE AND STOOL UA Glucose Negative (10/25/17 9:57 PM) Negative 10/26/2017 [facility] URINE AND STOOL UA Color Yellow *NA* (10/25/17 9:57 PM) Yellow 10/26/2017 [facility] URINE AND STOOL UA pH 6.5 5.0 - 8.0 10/26/2017 [facility] URINE AND STOOL UA Protein Negative (10/25/17 9:57 PM) Negative 10/26/2017 [facility] URINE AND STOOL UA Spec Grav <=1.005
*NA*
(10/25/17 9:57 PM) <=1.030 10/26/2017 [facility] URINE AND STOOL UA Turbidity Clear (10/25/17 9:57 PM) Clear 10/26/2017 [facility] URINE AND STOOL UA Mucus None Seen (10/25/17 9:57 PM) None Seen 10/26/2017 [facility] URINE AND STOOL UA Bacteria Occasional /HPF None Seen /HPF 10/26/2017 [facility] URINE AND STOOL UA WBC None Seen (10/25/17 9:57 PM) None Seen 10/26/2017 [facility] URINE AND STOOL UA Sq Epi Moderate /LPF Few /LPF 10/26/2017 [facility] URINE AND STOOL UA RBC None Seen (10/25/17 9:57 PM) 0 - 2 10/26/2017 [facility] CHEM PANEL eGFR 87 mL/min/1.73m2 10/26/2017 Result Comment: The eGFR is calculated using the CKD-EPI formula. In most young, healthy individuals the eGFR will be >90 mL/min/1.73m2. The eGFR declines with age. An eGFR of 60-89 may be normal in some populations, particularly the elderly, for whom the CKD-EPI formula has not been extensively validated. Use of the eGFR is not recommended in the following populations: Individuals with unstable creatinine concentrations, including patients and those with serious co-morbid conditions. Patients with extremes in muscle mass or diet. The data above are obtained from the National Kidney Disease Education Program (NKDEP) which additionally recommends that when the eGFR is used in patients with extremes of body mass index for purposes of drug dosing, the eGFR should be multiplied by the estimated BMI. [facility] CHEM PANEL Bili Total 0.1 mg/dL 0.2 - 1.3 10/26/2017 [facility] CHEM PANEL BUN 12 mg/dL 7 - 22 10/26/2017 [facility] CHEM PANEL Creatinine Lvl 0.85 mg/dL 0.50 - 1.40 10/26/2017 [facility] CHEM PANEL Glucose Lvl 107 mg/dL 70 - 99 10/26/2017 [facility] CHEM PANEL AST 15 unit/L 0 - 37 10/26/2017 [facility] CHEM PANEL Alk Phos 82 unit/L 39 - 136 10/26/2017 [facility] CHEM PANEL Total Protein 6.4 g/dL 6.4 - 8.4 10/26/2017 [facility] CHEM PANEL Albumin Lvl 3.3 g/dL 3.5 - 5.0 10/26/2017 [facility] CHEM PANEL ALT 30 unit/L 0 - 65 10/26/2017 [facility] CHEM PANEL Calcium Lvl 9.1 mg/dL 8.5 - 10.5 10/26/2017 [facility] CHEM PANEL Potassium Lvl 4.0 meq/L 3.5 - 5.1 10/26/2017 [facility] CHEM PANEL CO2 24 meq/L 24 - 32 10/26/2017 [facility] CHEM PANEL Chloride Lvl 109 meq/L 95 - 109 10/26/2017 [facility] CHEM PANEL Sodium Lvl 142 meq/L 135 - 145 10/26/2017 [facility] CHEM PANEL A/G Ratio 1.1 0.7 - 1.6 10/26/2017 [facility] CHEM PANEL Globulin 3.1 g/dL 2.7 - 4.2 10/26/2017 [facility] CHEM PANEL AGAP 13.0 meq/L 10.0 - 20.0 10/26/2017 [facility] CHEM PANEL B/C Ratio 14 6 - 25 10/26/2017 [facility] CHEM PANEL Lipase Lvl 245 unit/L 73 - 393 10/26/2017 [facility] ENDOCRINOLOGY S Preg Negative *NA* (10/25/17 9:52 PM) Negative 10/26/2017 [facility] HEMATOLOGY Segs 59.7 % 45.0 - 75.0 10/26/2017 [facility] HEMATOLOGY Lymphocytes 32.1 % 20.0 - 40.0 10/26/2017 [facility] HEMATOLOGY Monocytes 6.1 % 2.0 - 12.0 10/26/2017 [facility] Eosinophils 1.6 % 0.0 - 4.0 10/26/2017 [facility] Basophils 0.5 % 0.0 - 1.0 10/26/2017 [facility] Segs-Bands # 4.4 K/CMM 1.5 - 8.1 10/26/2017 [facility] Lymphocytes # 2.3 K/CMM 1.0 - 5.5 10/26/2017 [facility] Monocytes # 0.4 K/CMM 0.0 - 0.8 10/26/2017 [facility] Eosinophils # 0.1 K/CMM 0.0 - 0.5 10/26/2017 [facility] MCHC 34.0 g/dL 32.0 - 36.0 10/26/2017 [facility] RDW 13.8 % 11.5 - 14.5 10/26/2017 [facility] WBC 7.2 K/CMM 3.7 - 10.4 10/26/2017 [facility] RBC 4.36 M/CMM 4.20 - 5.40 10/26/2017 [facility] Platelet 268 K/CMM 133 - 450 10/26/2017 [facility] MPV 8.0 fL 7.4 - 10.4 10/26/2017 [facility] Hgb 12.5 g/dL 12.0 - 16.0 10/26/2017 [facility] Hct 36.8 % 36.0 - 48.0 10/26/2017 [facility] MCV 84.4 fL 80.0 - 98.0 10/26/2017 [facility] MCH 28.7 pg 27.0 - 31.0 10/26/2017 [facility] Pelvis w Transvag and Pelvis Doppler US Pelvis w Transvag and Pelvis Doppler US Pelvic and transvaginal ultrasound dated 10/26/2017. HISTORY: Right pelvic pain. A transabdominal pelvic ultrasound was performed with subsequent transvaginal pelvic imaging in an attempt to better visualize the ovaries. Correlation is made with a CT abdomen dated 10/25/2017. The patient is status post hysterectomy. The right ovary measures 3.1 x 1.9 x 2.6 cm and contains several cysts. The largest cyst measures 1.7 x 1.5 x 1.4 cm and has a complex sonographic appearance due to the presence of internal echoes. Right ovary and blood flow is visualized with color ultrasound. The left ovary was not identified either transabdominally or transvaginally. No adnexal masses are imaged. Free intraperitoneal fluid is identified in the pelvic cul-de-sac and left adnexa. IMPRESSION: 1. Status post hysterectomy. 2. The right ovary contains a 1.7 cm complex cyst, most likely representing a hemorrhagic physiologic cyst in a female of this age. There is no evidence of associated ovarian torsion. 3. Nonvisualization of the left ovary. Asymptomatic, hemorrhagic / complex adnexal cysts - consensus followup recommendations: * In premenopausal women: Hemorrhagic cysts < 5 cm do not need followup. Hemorrhagic cysts > 5 cm need short interval followup in 6-12 weeks with ultrasound to ensure resolution. * In early postmenopausal women: Any hemorrhagic cyst requires followup in 6-12 weeks with ultrasound to ensure resolution. In late postmenopausal women: Any hemorrhagic cyst should be considered neoplastic and surgical consultation should be considered. SL: [id number] 10/26/2017 - - Read by: Christian Akhtar MD Dictated Date/time: 10/26/17 01:38 Electronically Signed by: Christian Akhtar MD 10/26/17 01:43 FINAL REPORT [facility] ED Abdomen/Pelvis IV contrast only CT ED Abdomen/Pelvis IV contrast only CT Clinical Indication: Abdominal/right lower quadrant pain for 4 days. Comparison: 08/25/2017 TECHNIQUE: Sequential trans-axial images were obtained with a multi-detector helical CT after administration of iodinated contrast. Coronal and sagittal reconstructions were obtained. 100 mL of Omnipaque contrast material was used for the exam. No oral contrast material was used for the exam. CT Radiation Dose DLP 758.79 mGy-cm FINDINGS: CHEST BASE: Scattered areas of mild subsegmental/dependent atelectasis. No focal infiltrate. No effusion or pneumothorax. Heart size normal. No pericardial effusion. LIVER: Size within normal limits. Normal contours. Enhancement pattern within normal limits. GALLBLADDER: Surgically removed. No abnormal findings in post-cholecystectomy bed PANCREAS: Normal enhancement pattern. No surrounding inflammation. SPLEEN: Normal size. No obvious lesions. ADRENAL GLANDS: Normal contour bilaterally. No detected lesions. KIDNEYS/COLLECTING SYSTEMS: Right kidney: Normal size and contour. No abnormal enhancement pattern. No calcified stones. Right ureter: No hydronephrosis or obstructing calcified stone. Left kidney: Normal size with slight cortical scarring. No abnormal enhancement pattern. Exophytic hypodensities, too small to further characterize. 2 mm stones noted. Left ureter: No hydronephrosis or obstructing calcified stone. Bladder: Distends normally. No detected bladder stones.. BOWEL: Limited assessment without oral contrast. Stomach: Unremarkable. Small bowel: No obstructive pattern. No suspected inflammation. Appendix: Visualized portions noninflamed. Large bowel: Within normal limits. PERITONEUM/RETROPERITONEUM: No organized fluid collection. No free air. Small fat filled midline and right of midline supra umbilical hernias without inflammation. No pathologically enlarged lymph nodes are seen in the abdomen, retroperitoneum, or pelvis. Aorta is normal in caliber without aneurysmal dilatation. MUSCULOSKELETAL: No acute fracture or dislocation. No lytic or blastic lesion. Surrounding subcutaneous tissues within normal limits. IMPRESSION: 1. No acute abnormality identified in the abdomen or pelvis. 2. Nonobstructing left renal stones. 2. Small fat filled subumbilical hernias without inflammation. SL: [id number] 10/25/2017 - - Read by: Felix Christina MD Dictated Date/time: 10/25/17 23:21 Electronically Signed by: Felix Christina MD 10/25/17 23:27 FINAL REPORT [facility] CHEM PANEL Lipase Lvl 185 unit/L 73 - 393 08/25/2017 [facility] CHEM PANEL eGFR 103 mL/min/1.73m2 08/25/2017 Result Comment: The eGFR is calculated using the CKD-EPI formula. In most young, healthy individuals the eGFR will be >90 mL/min/1.73m2. The eGFR declines with age. An eGFR of 60-89 may be normal in some populations, particularly the elderly, for whom the CKD-EPI formula has not been extensively validated. Use of the eGFR is not recommended in the following populations: Individuals with unstable creatinine concentrations, including patients and those with serious co-morbid conditions. Patients with extremes in muscle mass or diet. The data above are obtained from the National Kidney Disease Education Program (NKDEP) which additionally recommends that when the eGFR is used in patients with extremes of body mass index for purposes of drug dosing, the eGFR should be multiplied by the estimated BMI. [facility] CHEM PANEL Potassium Lvl 3.4 meq/L 3.5 - 5.1 08/25/2017 [facility] CHEM PANEL Chloride Lvl 109 meq/L 95 - 109 08/25/2017 [facility] CHEM PANEL CO2 28 meq/L 24 - 32 08/25/2017 [facility] CHEM PANEL Total Protein 6.0 g/dL 6.4 - 8.4 08/25/2017 [facility] CHEM PANEL Calcium Lvl 8.3 mg/dL 8.5 - 10.5 08/25/2017 [facility] CHEM PANEL ALT 26 unit/L 0 - 65 08/25/2017 [facility] CHEM PANEL Albumin Lvl 2.9 g/dL 3.5 - 5.0 08/25/2017 [facility] CHEM PANEL AST 20 unit/L 0 - 37 08/25/2017 [facility] CHEM PANEL Alk Phos 81 unit/L 39 - 136 08/25/2017 [facility] CHEM PANEL Bili Total 0.4 mg/dL 0.2 - 1.3 08/25/2017 [facility] CHEM PANEL BUN 9 mg/dL 7 - 22 08/25/2017 [facility] CHEM PANEL Glucose Lvl 110 mg/dL 70 - 99 08/25/2017 [facility] CHEM PANEL Creatinine Lvl 0.74 mg/dL 0.50 - 1.40 08/25/2017 [facility] CHEM PANEL Sodium Lvl 142 meq/L 135 - 145 08/25/2017 [facility] CHEM PANEL A/G Ratio 0.9 0.7 - 1.6 08/25/2017 [facility] CHEM PANEL Globulin 3.1 g/dL 2.7 - 4.2 08/25/2017 [facility] CHEM PANEL B/C Ratio 12 6 - 25 08/25/2017 [facility] CHEM PANEL AGAP 8.4 meq/L 10.0 - 20.0 08/25/2017 [facility] HEMATOLOGY MPV 7.5 fL 7.4 - 10.4 08/25/2017 [facility] HEMATOLOGY RBC 3.84 M/CMM 4.20 - 5.40 08/25/2017 [facility] HEMATOLOGY WBC 7.5 K/CMM 3.7 - 10.4 08/25/2017 [facility] HEMATOLOGY Hgb 11.3 g/dL 12.0 - 16.0 08/25/2017 [facility] HEMATOLOGY Hct 33.3 % 36.0 - 48.0 08/25/2017 [facility] HEMATOLOGY MCV 86.6 fL 80.0 - 98.0 08/25/2017 [facility] MCH 29.4 pg 27.0 - 31.0 08/25/2017 [facility] MCHC 34.0 g/dL 32.0 - 36.0 08/25/2017 [facility] HEMATOLOGY RDW 14.0 % 11.5 - 14.5 08/25/2017 [facility] Platelet 277 K/CMM 133 - 450 08/25/2017 [facility] HEMATOLOGY Segs-Bands # 5.7 K/CMM 1.5 - 8.1 08/25/2017 [facility] HEMATOLOGY Basophils 0.7 % 0.0 - 1.0 08/25/2017 [facility] HEMATOLOGY Monocytes 4.5 % 2.0 - 12.0 08/25/2017 [facility] HEMATOLOGY Eosinophils 1.2 % 0.0 - 4.0 08/25/2017 [facility] HEMATOLOGY Segs 74.9 % 45.0 - 75.0 08/25/2017 [facility] HEMATOLOGY Eosinophils # 0.1 K/CMM 0.0 - 0.5 08/25/2017 [facility] Monocytes # 0.3 K/CMM 0.0 - 0.8 08/25/2017 [facility] Basophils # 0.1 K/CMM 0.0 - 0.2 08/25/2017 [facility] Lymphocytes 18.7 % 20.0 - 40.0 08/25/2017 [facility] Lymphocytes # 1.4 K/CMM 1.0 - 5.5 08/25/2017 [facility] URINE AND STOOL UA Color Ltyellow 08/25/2017 [facility] URINE AND STOOL UA RBC 1 /HPF 0 - 2 08/25/2017 [facility] URINE AND STOOL UA Leuk Est Negative (08/25/17 11:16 AM) Negative 08/25/2017 [facility] URINE AND STOOL UA Nitrite Negative (08/25/17 11:16 AM) Negative 08/25/2017 [facility] URINE AND STOOL UA Urobilinogen 2.0 mg/dL 0.1 - 1.0 08/25/2017 [facility] URINE AND STOOL UA WBC null 0 - 5 08/25/2017 [facility] URINE AND STOOL UA Sq Epi Occasional /LPF Few /LPF 08/25/2017 [facility] URINE AND STOOL UA Blood Negative (08/25/17 11:16 AM) Negative 08/25/2017 [facility] URINE AND STOOL UA Bili Negative *NA* (08/25/17 11:16 AM) Negative 08/25/2017 [facility] URINE AND STOOL UA Ketones Negative mg/dL Negative mg/dL 08/25/2017 [facility] URINE AND STOOL UA pH 7.0 5.0 - 8.0 08/25/2017 [facility] URINE AND STOOL UA Spec Grav 1.008 <=1.030 08/25/2017 [facility] URINE AND STOOL UA Glucose Negative mg/dL Negative mg/dL 08/25/2017 [facility] URINE AND STOOL UA Protein Negative mg/dL Negative mg/dL 08/25/2017 [facility] URINE AND STOOL UA Turbidity Clear (08/25/17 11:16 AM) Clear 08/25/2017 [facility] URINE CHEM U Preg Negative (08/25/17 11:16 AM) Negative 08/25/2017 [facility] Abdomen/Pelvis w IV contrast CT Abdomen/Pelvis w IV contrast CT Clinical Indication: Acute abdominal pain - IV , recent diagnosis of pancreatitis Comparison: 07/10/2017 TECHNIQUE: Helical imaging was performed diaphragm through the symphysis with multiplanar reformations obtained. IV CONTRAST: 100cc Omnipaque 300 GI CONTRAST: No CT Radiation Dose: WMA=4723.88 mGy-cm FINDINGS: LOWER CHEST: Trace bilateral pleural effusions with minimal adjacent dependent atelectasis. SOLID ORGANS: Cholecystectomy clips. Liver, spleen, adrenal glands and right kidney are unremarkable. Punctate nonobstructing calculi lower pole left kidney. Cortical scarring of the left kidney and small exophytic cyst noted as well. Minimal edema centered between the pancreatic head and second portion of the duodenum may reflect resolving changes related to recent pancreatitis. The pancreas is otherwise unremarkable. BOWEL: Stomach, small and large bowel are unremarkable. Normal caliber appendix. No periappendiceal inflammatory change. PERITONEUM: Small volume of free pelvic fluid. No fluid collections. Mesenteric vessels are patent. RETROPERITONEUM: No pathologic adenopathy. The aorta is normal in caliber. PELVIS: No pelvic mass. The urinary bladder is normal. MUSCULOSKELETAL: Bilateral sacroiliac joint degenerative change. No acute osseous abnormality. IMPRESSION: 1. Minimal edema centered between the pancreatic head and second portion of the duodenum suggests resolving changes from recent pancreatitis. The pancreas is otherwise unremarkable. No complicating features identified. 2. Trace bilateral pleural effusions. 3. Small volume of free pelvic fluid. No organized fluid collections. 4. Cholecystectomy. 5. Punctate nonobstructing calculi lower pole left kidney. Cortical scarring of the left kidney also noted. SL: [id number] 08/25/2017 - - Read by: Darell June MD Dictated Date/time: 08/25/17 13:15 Electronically Signed by: Darell June MD 08/25/17 13:19 FINAL REPORT [facility] Serum or plasma conjugated bilirubin measurement (mass/volume) 0.1 0.0 - 0.5 08/21/2017 [facility] Serum or plasma conjugated bilirubin measurement (mass/volume) 0.1 0.0 - 0.5 08/21/2017 [facility] Serum or plasma conjugated bilirubin measurement (mass/volume) Serum or plasma conjugated bilirubin measurement (mass/volume) 0.1 0.0 - 0.5 08/21/2017 [facility] Blood culture NO GROWTH AFTER 5 DAYS, FINAL REPORT 08/20/2017 [facility] Blood culture NO GROWTH AFTER 5 DAYS, FINAL REPORT 08/20/2017 [facility] Blood culture Blood culture NO GROWTH AFTER 5 DAYS, FINAL REPORT 08/20/2017 [facility] Hemoglobin A1c Percent 4.9 4.0 - 7.0 08/20/2017 [facility] Hemoglobin A1c Percent 4.9 4.0 - 7.0 08/20/2017 [facility] Serum or plasma triglyceride measurement (mass/volume) 113 0 - 149 08/20/2017 [facility] Serum or plasma cholesterol measurement (mass/volume) 227 0 - 199 08/20/2017 [facility] Serum or plasma cholesterol in LDL measurement (mass/volume) 141 60 - 130 08/20/2017 [facility] Serum or plasma cholesterol in HDL measurement (mass/volume) 63 40 - 60 08/20/2017 [facility] Serum or plasma total cholesterol/cholesterol in HDL mass ratio 3.6 3.0 - 3.6 08/20/2017 [facility] Serum or plasma total cholesterol/cholesterol in HDL mass ratio 3.6 3.0 - 3.6 08/20/2017 [facility] Serum or plasma cholesterol in HDL measurement (mass/volume) Serum or plasma cholesterol in HDL measurement (mass/volume) 63 40 - 60 08/20/2017 [facility] Serum or plasma cholesterol in LDL measurement (mass/volume) Serum or plasma cholesterol in LDL measurement (mass/volume) 141 60 - 130 08/20/2017 [facility] Serum or plasma cholesterol measurement (mass/volume) Serum or plasma cholesterol measurement (mass/volume) 227 0 - 199 08/20/2017 [facility] Serum or plasma total cholesterol/cholesterol in HDL mass ratio Serum or plasma total cholesterol/cholesterol in HDL mass ratio 3.6 3.0 - 3.6 08/20/2017 [facility] Serum or plasma triglyceride measurement (mass/volume) Serum or plasma triglyceride measurement (mass/volume) 113 0 - 149 08/20/2017 [facility] Transitional cells detection in urine sediment by light microscopy RARE NONE 08/05/2017 [facility] Transitional cells detection in urine sediment by light microscopy Transitional cells detection in urine sediment by light microscopy RARE NONE 08/05/2017 [facility] CHEM PANEL Lipase Lvl 156 unit/L 73 - 393 07/10/2017 [facility] CHEM PANEL Amylase Lvl 82 unit/L 25 - 115 07/10/2017 [facility] ELECTROLYTES AGAP 14.4 meq/L 10.0 - 20.0 07/10/2017 [facility] ELECTROLYTES A/G Ratio 1.0 0.7 - 1.6 07/10/2017 [facility] ELECTROLYTES Globulin 3.7 g/dL 2.7 - 4.2 07/10/2017 [facility] ELECTROLYTES B/C Ratio 15 6 - 25 07/10/2017 [facility] ELECTROLYTES eGFR 75 mL/min/1.73m2 07/10/2017 Result Comment: The eGFR is calculated using the CKD-EPI formula. In most young, healthy individuals the eGFR will be >90 mL/min/1.73m2. The eGFR declines with age. An eGFR of 60-89 may be normal in some populations, particularly the elderly, for whom the CKD-EPI formula has not been extensively validated. Use of the eGFR is not recommended in the following populations: Individuals with unstable creatinine concentrations, including patients and those with serious co-morbid conditions. Patients with extremes in muscle mass or diet. The data above are obtained from the National Kidney Disease Education Program (NKDEP) which additionally recommends that when the eGFR is used in patients with extremes of body mass index for purposes of drug dosing, the eGFR should be multiplied by the estimated BMI. [facility] ELECTROLYTES Bili Total 0.3 mg/dL 0.2 - 1.3 07/10/2017 [facility] ELECTROLYTES AST 12 unit/L 0 - 37 07/10/2017 [facility] ELECTROLYTES ALT 22 unit/L 0 - 65 07/10/2017 [facility] ELECTROLYTES Albumin Lvl 3.7 g/dL 3.5 - 5.0 07/10/2017 [facility] ELECTROLYTES Alk Phos 101 unit/L 39 - 136 07/10/2017 [facility] ELECTROLYTES Potassium Lvl 3.4 meq/L 3.5 - 5.1 07/10/2017 [facility] ELECTROLYTES Calcium Lvl 8.1 mg/dL 8.5 - 10.5 07/10/2017 [facility] ELECTROLYTES Total Protein 7.4 g/dL 6.4 - 8.4 07/10/2017 [facility] ELECTROLYTES Creatinine Lvl 0.96 mg/dL 0.50 - 1.40 07/10/2017 [facility] ELECTROLYTES Sodium Lvl 138 meq/L 135 - 145 07/10/2017 [facility] ELECTROLYTES BUN 14 mg/dL 7 - 22 07/10/2017 [facility] ELECTROLYTES Glucose Lvl 117 mg/dL 70 - 99 07/10/2017 [facility] ELECTROLYTES CO2 19 meq/L 24 - 32 07/10/2017 [facility] ELECTROLYTES Chloride Lvl 108 meq/L 95 - 109 07/10/2017 [facility] HEMATOLOGY Monocytes # 0.4 K/CMM 0.0 - 0.8 07/10/2017 [facility] Lymphocytes # 1.5 K/CMM 1.0 - 5.5 07/10/2017 [facility] HEMATOLOGY Segs-Bands # 6.1 K/CMM 1.5 - 8.1 07/10/2017 [facility] HEMATOLOGY Basophils 1.0 % 0.0 - 1.0 07/10/2017 [facility] Lymphocytes 18.0 % 20.0 - 40.0 07/10/2017 [facility] HEMATOLOGY Basophils # 0.1 K/CMM 0.0 - 0.2 07/10/2017 [facility] HEMATOLOGY Eosinophils # 0.1 K/CMM 0.0 - 0.5 07/10/2017 [facility] HEMATOLOGY Eosinophils 1.4 % 0.0 - 4.0 07/10/2017 [facility] HEMATOLOGY Segs 74.4 % 45.0 - 75.0 07/10/2017 [facility] HEMATOLOGY Monocytes 5.2 % 2.0 - 12.0 07/10/2017 [facility] MPV 7.8 fL 7.4 - 10.4 07/10/2017 [facility] MCHC 33.8 g/dL 32.0 - 36.0 07/10/2017 [facility] MCH 30.0 pg 27.0 - 31.0 07/10/2017 [facility] Platelet 245 K/CMM 133 - 450 07/10/2017 [facility] RDW 14.5 % 11.5 - 14.5 07/10/2017 [facility] MCV 88.7 fL 80.0 - 98.0 07/10/2017 [facility] WBC 8.2 K/CMM 3.7 - 10.4 07/10/2017 [facility] Hct 40.8 % 36.0 - 48.0 07/10/2017 [facility] Hgb 13.8 g/dL 12.0 - 16.0 07/10/2017 [facility] RBC 4.59 M/CMM 4.20 - 5.40 07/10/2017 [facility] URINE AND STOOL UA Color Nance *ABN* (07/10/17 8:12 AM) Yellow 07/10/2017 [facility] URINE AND STOOL UA pH 6.0 5.0 - 8.0 07/10/2017 [facility] URINE AND STOOL UA Glucose Negative (07/10/17 8:12 AM) Negative 07/10/2017 [facility] URINE AND STOOL UA Protein Negative (07/10/17 8:12 AM) Negative 07/10/2017 [facility] URINE AND STOOL UA Spec Grav >=1.030 *ABN* (07/10/17 8:12 AM) <=1.030 07/10/2017 [facility] URINE AND STOOL UA Turbidity Clear (07/10/17 8:12 AM) Clear 07/10/2017 [facility] URINE AND STOOL UA Leuk Est Negative (07/10/17 8:12 AM) Negative 07/10/2017 [facility] URINE AND STOOL UA Nitrite Positive *ABN* (07/10/17 8:12 AM) Negative 07/10/2017 [facility] URINE AND STOOL UA Ketones Negative *NA* (07/10/17 8:12 AM) Negative 07/10/2017 [facility] URINE AND STOOL UA Bili Negative *NA* (07/10/17 8:12 AM) Negative 07/10/2017 [facility] URINE AND STOOL UA Urobilinogen 0.2 EU/dL 0.1 - 1.0 07/10/2017 [facility] URINE AND STOOL UA Blood Trace *ABN* (07/10/17 8:12 AM) Negative 07/10/2017 [facility] URINE AND STOOL UA Bacteria Occasional /HPF None Seen /HPF 07/10/2017 [facility] URINE AND STOOL UA Mucus Few /LPF None Seen /LPF 07/10/2017 [facility] URINE AND STOOL UA CaOx Eliana Occasional /HPF None Seen /HPF 07/10/2017 [facility] URINE AND STOOL UA Sq Epi Moderate /LPF Few /LPF 07/10/2017 [facility] Abdomen/Pelvis wo IV contrast CT Abdomen/Pelvis wo IV contrast CT Abdomen/Pelvis wo IV contrast CT TECHNIQUE: Contiguous transaxial images of the abdomen and pelvis were performed from the lung bases to the superior pubic rami without IV contrast. COMPARISON: 04/21/2017 CLINICAL HX: Back pain - kidney stone protocol. CT ABDOMEN: Lower Chest: The lung bases are clear. GI Tract: Bowel gas pattern is unremarkable. There is no evidence for free fluid or free air in the abdomen. Tract and Retroperitoneum: A few nonobstructing calyceal calculi are visualized bilaterally in the range of 2 to 3 mm. No hydronephrosis. 9 mm cyst midportion of left kidney, unchanged. Renal cortical volume is reasonably well preserved without evidence for cortical scarring. Abdominal viscera: Noncontrast images of the liver are unremarkable. The spleen, pancreas and both adrenals demonstrate no gross abnormalities given the limitation of lack of IV contrast. Status post cholecystectomy. Vasculature: Aorta demonstrates normal morphology. Bone and Soft tissues: No significant bony abnormality is noted. CT PELVIS: The bladder is unremarkable in appearance, given the limitation of lack of IV contrast. Uterus is not visualized suggesting prior hysterectomy. No gross adnexal mass is visualized. No free fluid is present in the pelvis. IMPRESSION: Bilateral nephrolithiasis, unchanged from previous study. No obstructing ureteric calculi are evident. No hydronephrosis. No other significant abnormality is noted on the noncontrast CT of the abdomen and pelvis SL: [id number] 07/10/2017 - - Read by: Jourdan De Leon MD Dictated Date/time: 07/10/17 11:06 Electronically Signed by: Jourdan De Leon MD 07/10/17 11:16 FINAL REPORT [facility] CARDIAC ENZYMES Troponin-I null 0.00 - 0.40 06/10/2017 [facility] URINE AND STOOL UA Color Ltyellow 06/10/2017 [facility] URINE AND STOOL UA Urobilinogen <=1.0 mg/dL 0.1 - 1.0 06/10/2017 [facility] URINE AND STOOL UA Bacteria Moderate /HPF None Seen /HPF 06/10/2017 [facility] URINE AND STOOL UA Ketones Negative mg/dL Negative mg/dL 06/10/2017 [facility] URINE AND STOOL UA Glucose Negative mg/dL Negative mg/dL 06/10/2017 [facility] URINE AND STOOL UA Protein Negative mg/dL Negative mg/dL 06/10/2017 [facility] URINE AND STOOL UA pH 7.0 5.0 - 8.0 06/10/2017 [facility] URINE AND STOOL UA Spec Grav 1.008 <=1.030 06/10/2017 [facility] URINE AND STOOL UA WBC 2 /HPF 0 - 5 06/10/2017 [facility] URINE AND STOOL UA Sq Epi Moderate /LPF Few /LPF 06/10/2017 [facility] URINE AND STOOL UA RBC 1 /HPF 0 - 2 06/10/2017 [facility] URINE AND STOOL UA Leuk Est Trace *ABN* (06/10/17 8:44 AM) Negative 06/10/2017 [facility] URINE AND STOOL UA Nitrite Negative (06/10/17 8:44 AM) Negative 06/10/2017 [facility] URINE AND STOOL UA Bili Negative *NA* (06/10/17 8:44 AM) Negative 06/10/2017 [facility] URINE AND STOOL UA Blood Negative (06/10/17 8:44 AM) Negative 06/10/2017 [facility] URINE AND STOOL UA Turbidity Clear (06/10/17 8:44 AM) Clear 06/10/2017 [facility] URINE CHEM U Preg Negative (06/10/17 8:44 AM) Negative 06/10/2017 [facility] CARDIAC ENZYMES Troponin-I null 0.00 - 0.40 06/10/2017 [facility] CHEM PANEL eGFR 77 mL/min/1.73m2 06/10/2017 Result Comment: The eGFR is calculated using the CKD-EPI formula. In most young, healthy individuals the eGFR will be >90 mL/min/1.73m2. The eGFR declines with age. An eGFR of 60-89 may be normal in some populations, particularly the elderly, for whom the CKD-EPI formula has not been extensively validated. Use of the eGFR is not recommended in the following populations: Individuals with unstable creatinine concentrations, including patients and those with serious co-morbid conditions. Patients with extremes in muscle mass or diet. The data above are obtained from the National Kidney Disease Education Program (NKDEP) which additionally recommends that when the eGFR is used in patients with extremes of body mass index for purposes of drug dosing, the eGFR should be multiplied by the estimated BMI. [facility] CHEM PANEL Bili Total 0.4 mg/dL 0.2 - 1.3 06/10/2017 [facility] CHEM PANEL AST 9 unit/L 0 - 37 06/10/2017 [facility] CHEM PANEL Creatinine Lvl 0.94 mg/dL 0.50 - 1.40 06/10/2017 [facility] CHEM PANEL BUN 12 mg/dL 7 - 22 06/10/2017 [facility] CHEM PANEL Calcium Lvl 8.2 mg/dL 8.5 - 10.5 06/10/2017 [facility] CHEM PANEL Total Protein 7.0 g/dL 6.4 - 8.4 06/10/2017 [facility] CHEM PANEL Alk Phos 88 unit/L 39 - 136 06/10/2017 [facility] CHEM PANEL Albumin Lvl 3.6 g/dL 3.5 - 5.0 06/10/2017 [facility] CHEM PANEL ALT 15 unit/L 0 - 65 06/10/2017 [facility] CHEM PANEL Glucose Lvl 120 mg/dL 70 - 99 06/10/2017 [facility] CHEM PANEL Sodium Lvl 140 meq/L 135 - 145 06/10/2017 [facility] CHEM PANEL Potassium Lvl 3.8 meq/L 3.5 - 5.1 06/10/2017 [facility] CHEM PANEL CO2 23 meq/L 24 - 32 06/10/2017 [facility] CHEM PANEL Chloride Lvl 108 meq/L 95 - 109 06/10/2017 [facility] CHEM PANEL A/G Ratio 1.1 0.7 - 1.6 06/10/2017 [facility] CHEM PANEL B/C Ratio 13 6 - 25 06/10/2017 [facility] CHEM PANEL Globulin 3.4 g/dL 2.7 - 4.2 06/10/2017 [facility] CHEM PANEL AGAP 12.8 meq/L 10.0 - 20.0 06/10/2017 [facility] HEMATOLOGY Basophils 1.1 % 0.0 - 1.0 06/10/2017 [facility] Lymphocytes # 1.6 K/CMM 1.0 - 5.5 06/10/2017 [facility] Lymphocytes 29.6 % 20.0 - 40.0 06/10/2017 [facility] Monocytes 6.7 % 2.0 - 12.0 06/10/2017 [facility] Segs-Bands # 3.2 K/CMM 1.5 - 8.1 06/10/2017 [facility] Monocytes # 0.4 K/CMM 0.0 - 0.8 06/10/2017 [facility] HEMATOLOGY Eosinophils # 0.2 K/CMM 0.0 - 0.5 06/10/2017 [facility] Basophils # 0.1 K/CMM 0.0 - 0.2 06/10/2017 [facility] Segs 59.6 % 45.0 - 75.0 06/10/2017 [facility] Eosinophils 3.0 % 0.0 - 4.0 06/10/2017 [facility] MPV 8.1 fL 7.4 - 10.4 06/10/2017 [facility] Platelet 218 K/CMM 133 - 450 06/10/2017 [facility] RDW 14.8 % 11.5 - 14.5 06/10/2017 [facility] MCH 30.1 pg 27.0 - 31.0 06/10/2017 [facility] MCHC 34.3 g/dL 32.0 - 36.0 06/10/2017 [facility] Hct 37.5 % 36.0 - 48.0 06/10/2017 [facility] MCV 87.9 fL 80.0 - 98.0 06/10/2017 [facility] Hgb 12.9 g/dL 12.0 - 16.0 06/10/2017 [facility] RBC 4.27 M/CMM 4.20 - 5.40 06/10/2017 [facility] WBC 5.3 K/CMM 3.7 - 10.4 06/10/2017 [facility] VIRAL - SEROLOGY Influ A Negative (06/10/17 8:43 AM) Negative 06/10/2017 [facility] VIRAL - SEROLOGY Influ B Negative (06/10/17 8:43 AM) Negative 06/10/2017 [facility] Chest 1view DX Chest 1view DX Clinical Indication: - chest pain. Comparison: January 13, 2017. TECHNIQUE: AP 1 view chest radiograph was performed. FINDINGS: LUNGS: Normal lung volumes. No interstitial or airspace opacities. No pleural effusions or pneumothorax. HEART AND MEDIASTINUM: The heart size is normal. The pulmonary vasculature is normal. The mediastinal contour is normal. The trachea is midline. OSSEOUS STRUCTURES: No acute abnormality seen. IMPRESSION: 1. No AP chest radiographic evidence of acute cardiopulmonary disease. SL: [id number] 06/10/2017 - - Read by: James Belcher MD Dictated Date/time: 06/10/17 09:59 Electronically Signed by: James Belcher MD 06/10/17 10:01 FINAL REPORT [facility] CHEM PANEL Lactic Acid Lvl 1.2 mMol/L 0.5 - 2.2 04/21/2017 [facility] CHEM PANEL B/C Ratio 8 6 - 25 04/21/2017 [facility] CHEM PANEL Globulin 3.4 g/dL 2.7 - 4.2 04/21/2017 [facility] CHEM PANEL eGFR 74 mL/min/1.73m2 04/21/2017 Result Comment: The eGFR is calculated using the CKD-EPI formula. In most young, healthy individuals the eGFR will be >90 mL/min/1.73m2. The eGFR declines with age. An eGFR of 60-89 may be normal in some populations, particularly the elderly, for whom the CKD-EPI formula has not been extensively validated. Use of the eGFR is not recommended in the following populations: Individuals with unstable creatinine concentrations, including patients and those with serious co-morbid conditions. Patients with extremes in muscle mass or diet. The data above are obtained from the National Kidney Disease Education Program (NKDEP) which additionally recommends that when the eGFR is used in patients with extremes of body mass index for purposes of drug dosing, the eGFR should be multiplied by the estimated BMI. [facility] CHEM PANEL A/G Ratio 1.0 0.7 - 1.6 04/21/2017 [facility] CHEM PANEL Creatinine Lvl 0.96 mg/dL 0.50 - 1.40 04/21/2017 [facility] CHEM PANEL BUN 8 mg/dL 7 - 22 04/21/2017 [facility] CHEM PANEL Glucose Lvl 112 mg/dL 70 - 99 04/21/2017 [facility] CHEM PANEL Chloride Lvl 110 meq/L 95 - 109 04/21/2017 [facility] CHEM PANEL Potassium Lvl 3.7 meq/L 3.5 - 5.1 04/21/2017 [facility] CHEM PANEL Sodium Lvl 140 meq/L 135 - 145 04/21/2017 [facility] CHEM PANEL Calcium Lvl 8.4 mg/dL 8.5 - 10.5 04/21/2017 [facility] CHEM PANEL Total Protein 6.9 g/dL 6.4 - 8.4 04/21/2017 [facility] CHEM PANEL Albumin Lvl 3.5 g/dL 3.5 - 5.0 04/21/2017 [facility] CHEM PANEL ALT 39 unit/L 0 - 65 04/21/2017 [facility] CHEM PANEL AST 18 unit/L 0 - 37 04/21/2017 [facility] CHEM PANEL Bili Total 0.6 mg/dL 0.2 - 1.3 04/21/2017 [facility] CHEM PANEL Alk Phos 100 unit/L 39 - 136 04/21/2017 [facility] CHEM PANEL AGAP 11.7 meq/L 10.0 - 20.0 04/21/2017 [facility] CHEM PANEL CO2 22 meq/L 24 - 32 04/21/2017 [facility] HEMATOLOGY Platelet 268 K/CMM 133 - 450 04/21/2017 [facility] HEMATOLOGY MPV 7.4 fL 7.4 - 10.4 04/21/2017 [facility] HEMATOLOGY MCH 29.4 pg 27.0 - 31.0 04/21/2017 [facility] HEMATOLOGY MCV 85.9 fL 80.0 - 98.0 04/21/2017 [facility] HEMATOLOGY RDW 14.5 % 11.5 - 14.5 04/21/2017 [facility] HEMATOLOGY MCHC 34.2 g/dL 32.0 - 36.0 04/21/2017 [facility] HEMATOLOGY Hct 38.0 % 36.0 - 48.0 04/21/2017 [facility] HEMATOLOGY RBC 4.42 M/CMM 4.20 - 5.40 04/21/2017 [facility] HEMATOLOGY Hgb 13.0 g/dL 12.0 - 16.0 04/21/2017 [facility] HEMATOLOGY WBC 6.8 K/CMM 3.7 - 10.4 04/21/2017 [facility] HEMATOLOGY Segs 58.4 % 45.0 - 75.0 04/21/2017 [facility] HEMATOLOGY Eosinophils # 0.2 K/CMM 0.0 - 0.5 04/21/2017 [facility] HEMATOLOGY Basophils # 0.1 K/CMM 0.0 - 0.2 04/21/2017 [facility] HEMATOLOGY Lymphocytes 31.5 % 20.0 - 40.0 04/21/2017 [facility] HEMATOLOGY Monocytes 6.6 % 2.0 - 12.0 04/21/2017 [facility] HEMATOLOGY Eosinophils 2.5 % 0.0 - 4.0 04/21/2017 [facility] HEMATOLOGY Basophils 1.0 % 0.0 - 1.0 04/21/2017 [facility] HEMATOLOGY Segs-Bands # 4.0 K/CMM 1.5 - 8.1 04/21/2017 [facility] HEMATOLOGY Lymphocytes # 2.2 K/CMM 1.0 - 5.5 04/21/2017 [facility] [facility] HEMATOLOGY Monocytes # 0.5 K/CMM 0.0 - 0.8 04/21/2017 [facility] URINE AND STOOL UA Color Ltyellow 04/21/2017 [facility] URINE AND STOOL UA Urobilinogen <=1.0 mg/dL 0.1 - 1.0 04/21/2017 [facility] URINE AND STOOL UA pH 5.0 5.0 - 8.0 04/21/2017 [facility] URINE AND STOOL UA Protein Negative mg/dL Negative mg/dL 04/21/2017 [facility] URINE AND STOOL UA Bacteria Occasional /HPF None Seen /HPF 04/21/2017 [facility] URINE AND STOOL UA Sq Epi Moderate /LPF Few /LPF 04/21/2017 [facility] URINE AND STOOL UA WBC 9 /HPF 0 - 5 04/21/2017 [facility] URINE AND STOOL UA Bili Negative *NA* (04/21/17 11:42 AM) Negative 04/21/2017 [facility] URINE AND STOOL UA Blood Negative (04/21/17 11:42 AM) Negative 04/21/2017 [facility] URINE AND STOOL UA Glucose Negative mg/dL Negative mg/dL 04/21/2017 [facility] URINE AND STOOL UA Ketones Negative mg/dL Negative mg/dL 04/21/2017 [facility] URINE AND STOOL UA Spec Grav 1.008 <=1.030 04/21/2017 [facility] URINE AND STOOL UA Nitrite Negative (04/21/17 11:42 AM) Negative 04/21/2017 [facility] URINE AND STOOL UA Leuk Est Trace *ABN* (04/21/17 11:42 AM) Negative 04/21/2017 [facility] URINE AND STOOL UA Turbidity Slight *ABN* (04/21/17 11:42 AM) Clear 04/21/2017 [facility] URINE CHEM U Preg Negative (04/21/17 11:42 AM) Negative 04/21/2017 [facility] Renal Stone CT Renal Stone CT Renal Stone CT TECHNIQUE: Contiguous transaxial images of the abdomen and pelvis were performed from the lung bases to the superior pubic rami without IV contrast. COMPARISON: 04/11/2017 CLINICAL HX: CT dose DLP 1348.73 mGy-cm - r flank pain right flain pain radiating to rlq abd pain. hernia repair surgery 1 week ago. taking tylenol 3 w/out relief. CT ABDOMEN: Lower Chest: The lung bases are clear. GI Tract: Large amount of retained stool is present throughout the colon. No evidence to suggest small or large bowel obstruction. There is no evidence for free fluid or free air in the abdomen. Tract and Retroperitoneum: A few tiny calculi in the range of 1 to 2 mm are visualized in both kidneys. No obstructing ureteric calculi. 7 mm cyst, upper pole of left kidney, unchanged. No hydronephrosis. Abdominal viscera: Noncontrast images of the liver are unremarkable. The spleen, pancreas and both adrenals demonstrate no gross abnormalities given the limitation of lack of IV contrast. Status post cholecystectomy. Vasculature: Aorta demonstrates normal morphology. Bone and Soft tissues: There is edema in the periumbilical subcutaneous tissues. No significant bony abnormality is noted. CT PELVIS: The bladder is unremarkable in appearance, given the limitation of lack of IV contrast. The right ovary is cystic in appearance and is noted to be located in the very superior aspect of the pelvis. Nonvisualization of left ovary. No free fluid is present in the pelvis. IMPRESSION: Constipation. Probable right ovarian cyst. The right ovary is located in the very superior aspect of the right pelvis. Bilateral nephrolithiasis. No obstructing tract calculi. No hydronephrosis. No other significant abnormality is noted on the noncontrast CT of the abdomen and pelvis SL: [id number] 04/21/2017 - - Read by: Jourdan De Leon MD Dictated Date/time: 04/21/17 13:23 Electronically Signed by: Jourdan De Leon MD 04/21/17 14:00 FINAL REPORT [facility] CHEM PANEL Lipase Lvl 180 unit/L 73 - 393 04/11/2017 [facility] CHEM PANEL eGFR 72 mL/min/1.73m2 04/11/2017 Result Comment: The eGFR is calculated using the CKD-EPI formula. In most young, healthy individuals the eGFR will be >90 mL/min/1.73m2. The eGFR declines with age. An eGFR of 60-89 may be normal in some populations, particularly the elderly, for whom the CKD-EPI formula has not been extensively validated. Use of the eGFR is not recommended in the following populations: Individuals with unstable creatinine concentrations, including patients and those with serious co-morbid conditions. Patients with extremes in muscle mass or diet. The data above are obtained from the National Kidney Disease Education Program (NKDEP) which additionally recommends that when the eGFR is used in patients with extremes of body mass index for purposes of drug dosing, the eGFR should be multiplied by the estimated BMI. [facility] CHEM PANEL Calcium Lvl 8.1 mg/dL 8.5 - 10.5 04/11/2017 [facility] CHEM PANEL AGAP 11.4 meq/L 10.0 - 20.0 04/11/2017 [facility] CHEM PANEL B/C Ratio 12 6 - 25 04/11/2017 [facility] CHEM PANEL CO2 25 meq/L 24 - 32 04/11/2017 [facility] CHEM PANEL ALANINE AMINOTRANSFERASE 19 unit/L 0 - 65 04/11/2017 [facility] CHEM PANEL A/G Ratio 1.0 0.7 - 1.6 04/11/2017 [facility] CHEM PANEL ASPARTATE TRANSAMINASE 11 unit/L 0 - 37 04/11/2017 [facility] CHEM PANEL Albumin Lvl 3.3 g/dL 3.5 - 5.0 04/11/2017 [facility] CHEM PANEL Total Protein 6.6 g/dL 6.4 - 8.4 04/11/2017 [facility] CHEM PANEL Globulin 3.3 g/dL 2.7 - 4.2 04/11/2017 [facility] CHEM PANEL Alk Phos 98 unit/L 39 - 136 04/11/2017 [facility] CHEM PANEL Bili Total 0.1 mg/dL 0.2 - 1.3 04/11/2017 [facility] CHEM PANEL Chloride Lvl 108 meq/L 95 - 109 04/11/2017 [facility] CHEM PANEL Potassium Lvl 3.4 meq/L 3.5 - 5.1 04/11/2017 [facility] CHEM PANEL Sodium Lvl 141 meq/L 135 - 145 04/11/2017 [facility] CHEM PANEL Glucose Lvl 92 mg/dL 70 - 99 04/11/2017 [facility] CHEM PANEL Creatinine Lvl 0.99 mg/dL 0.50 - 1.40 04/11/2017 [facility] CHEM PANEL BUN 12 mg/dL 7 - 22 04/11/2017 [facility] ENDOCRINOLOGY S Preg Negative (04/11/17 9:25 AM) Negative 04/11/2017 [facility] HEMATOLOGY WBC 6.6 K/CMM 3.7 - 10.4 04/11/2017 [facility] HEMATOLOGY RBC 4.56 M/CMM 4.20 - 5.40 04/11/2017 [facility] HEMATOLOGY MCHC 34.2 g/dL 32.0 - 36.0 04/11/2017 [facility] HEMATOLOGY Hgb 13.6 g/dL 12.0 - 16.0 04/11/2017 [facility] HEMATOLOGY Hct 39.7 % 36.0 - 48.0 04/11/2017 [facility] HEMATOLOGY MCV 86.9 fL 80.0 - 98.0 04/11/2017 [facility] MCH 29.8 pg 27.0 - 31.0 04/11/2017 [facility] HEMATOLOGY RDW 14.5 % 11.5 - 14.5 04/11/2017 [facility] Platelet 223 K/CMM 133 - 450 04/11/2017 [facility] HEMATOLOGY MPV 8.1 fL 7.4 - 10.4 04/11/2017 [facility] HEMATOLOGY Eosinophils # 0.2 K/CMM 0.0 - 0.5 04/11/2017 [facility] HEMATOLOGY Basophils # 0.1 K/CMM 0.0 - 0.2 04/11/2017 [facility] HEMATOLOGY Basophils 1.1 % 0.0 - 1.0 04/11/2017 [facility] HEMATOLOGY Segs-Bands # 2.9 K/CMM 1.5 - 8.1 04/11/2017 [facility] HEMATOLOGY Lymphocytes # 3.0 K/CMM 1.0 - 5.5 04/11/2017 [facility] HEMATOLOGY Monocytes # 0.4 K/CMM 0.0 - 0.8 04/11/2017 [facility] HEMATOLOGY Eosinophils 3.0 % 0.0 - 4.0 04/11/2017 [facility] HEMATOLOGY Segs 43.4 % 45.0 - 75.0 04/11/2017 [facility] HEMATOLOGY Lymphocytes 45.7 % 20.0 - 40.0 04/11/2017 [facility] HEMATOLOGY Monocytes 6.8 % 2.0 - 12.0 04/11/2017 [facility] URINE AND STOOL UA Urobilinogen <=1.0 mg/dL 0.1 - 1.0 04/11/2017 [facility] URINE AND STOOL UA pH 5.0 5.0 - 8.0 04/11/2017 [facility] URINE AND STOOL UA Spec Grav 1.027 <=1.030 04/11/2017 [facility] URINE AND STOOL UA Turbidity Marked *ABN* (04/11/17 9:25 AM) Clear 04/11/2017 [facility] URINE AND STOOL UA Leuk Est Small *ABN* (04/11/17 9:25 AM) Negative 04/11/2017 [facility] URINE AND STOOL UA Sq Epi Many /LPF Few /LPF 04/11/2017 [facility] URINE AND STOOL UA WBC 7 /HPF 0 - 5 04/11/2017 [facility] URINE AND STOOL UA Blood Negative (04/11/17 9:25 AM) Negative 04/11/2017 [facility] URINE AND STOOL UA Nitrite Negative (04/11/17 9:25 AM) Negative 04/11/2017 [facility] URINE AND STOOL UA Protein Negative mg/dL Negative mg/dL 04/11/2017 [facility] URINE AND STOOL UA Glucose Negative mg/dL Negative mg/dL 04/11/2017 [facility] URINE AND STOOL UA CaOx Eliana Few /HPF None Seen /HPF 04/11/2017 [facility] URINE AND STOOL UA Mucus Many /LPF None Seen /LPF 04/11/2017 [facility] URINE AND STOOL UA Bacteria Occasional /HPF None Seen /HPF 04/11/2017 [facility] URINE AND STOOL UA Color Yellow *NA* (04/11/17 9:25 AM) Yellow 04/11/2017 [facility] URINE AND STOOL UA Ketones Negative mg/dL Negative mg/dL 04/11/2017 [facility] URINE AND STOOL UA Bili Negative *NA* (04/11/17 9:25 AM) Negative 04/11/2017 [facility] ED Abdomen/Pelvis IV contrast only CT ED Abdomen/Pelvis IV contrast only CT ED Abdomen/Pelvis IV contrast only CT 04/11/2017 9:13 AM 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 100cc omni - abdomainal pain recent hernia repair, ower abd pain increasing yesterday with vomiting. pt had hernia repair on at [facility]. pt aox 3. pt denies dysuria or diarrhea, no redness or swelling to site; COMPARISON: Abdominopelvic CT 04/03/2017 TECHNIQUE: 5 mm thick axial images of the abdomen and pelvis were obtained with IV contrast. . 5 mm thick delayed axial images were obtained. Coronal and sagittal reformations were created. FINDINGS: Visualized lung bases demonstrate mild bilateral lower lobe dependent subsegmental atelectasis with trace pleural effusions. Periumbilical fat stranding with few foci of subcutaneous air is present. Underlying mild focal omental fat stranding is present. Right paramedian mildly supraumbilical ventral hernia with a 1 cm mouth contains simple fat only and is stable. Liver, spleen, pancreas, adrenal glands, and kidneys are normal. Ureters are normal. Bladder is contracted. Gallbladder is surgically absent. Stomach, small intestine, and colon are normal . Appendix is normal. Trace free fluid is present in the deep pelvis. No mesenteric or retroperitoneal lymphadenopathy is present. No free air is present. Aortoiliac arterial system is normal and patent. Bones are normal. IMPRESSION: 1. Periumbilical fat stranding with few foci of recent postoperative subcutaneous air. Immediately underlying focal omental fat stranding present. 2. Mild bilateral lower lobe dependent subsegmental atelectasis with trace pleural effusions. SL: [id number] 04/11/2017 - - Read by: Best Cifuentes MD Dictated Date/time: 04/11/17 11:05 Electronically Signed by: Best Cifuentes MD 04/11/17 11:16 FINAL REPORT [facility] CHEM PANEL Lipase Lvl 140 unit/L 73 - 393 04/03/2017 [facility] CHEM PANEL A/G Ratio 1.1 0.7 - 1.6 04/03/2017 [facility] CHEM PANEL Globulin 3.4 g/dL 2.7 - 4.2 04/03/2017 [facility] CHEM PANEL B/C Ratio 15 6 - 25 04/03/2017 [facility] CHEM PANEL AGAP 12.2 meq/L 10.0 - 20.0 04/03/2017 [facility] CHEM PANEL eGFR 65 mL/min/1.73m2 04/03/2017 Result Comment: The eGFR is calculated using the CKD-EPI formula. In most young, healthy individuals the eGFR will be >90 mL/min/1.73m2. The eGFR declines with age. An eGFR of 60-89 may be normal in some populations, particularly the elderly, for whom the CKD-EPI formula has not been extensively validated. Use of the eGFR is not recommended in the following populations: Individuals with unstable creatinine concentrations, including patients and those with serious co-morbid conditions. Patients with extremes in muscle mass or diet. The data above are obtained from the National Kidney Disease Education Program (NKDEP) which additionally recommends that when the eGFR is used in patients with extremes of body mass index for purposes of drug dosing, the eGFR should be multiplied by the estimated BMI. [facility] CHEM PANEL Bili Total 0.4 mg/dL 0.2 - 1.3 04/03/2017 [facility] CHEM PANEL Total Protein 7.2 g/dL 6.4 - 8.4 04/03/2017 [facility] CHEM PANEL ALT 18 unit/L 0 - 65 04/03/2017 [facility] CHEM PANEL Alk Phos 112 unit/L 39 - 136 04/03/2017 [facility] CHEM PANEL AST 10 unit/L 0 - 37 04/03/2017 [facility] CHEM PANEL Albumin Lvl 3.8 g/dL 3.5 - 5.0 04/03/2017 [facility] CHEM PANEL Glucose Lvl 94 mg/dL 70 - 99 04/03/2017 [facility] CHEM PANEL Creatinine Lvl 1.08 mg/dL 0.50 - 1.40 04/03/2017 [facility] CHEM PANEL BUN 16 mg/dL 7 - 22 04/03/2017 [facility] CHEM PANEL CO2 21 meq/L 24 - 32 04/03/2017 [facility] CHEM PANEL Chloride Lvl 111 meq/L 95 - 109 04/03/2017 [facility] CHEM PANEL Potassium Lvl 3.2 meq/L 3.5 - 5.1 04/03/2017 [facility] CHEM PANEL Sodium Lvl 141 meq/L 135 - 145 04/03/2017 [facility] CHEM PANEL Calcium Lvl 8.1 mg/dL 8.5 - 10.5 04/03/2017 [facility] HEMATOLOGY Basophils 0.8 % 0.0 - 1.0 04/03/2017 [facility] Eosinophils 1.8 % 0.0 - 4.0 04/03/2017 [facility] Lymphocytes # 1.4 K/CMM 1.0 - 5.5 04/03/2017 [facility] Segs-Bands # 4.2 K/CMM 1.5 - 8.1 04/03/2017 [facility] Eosinophils # 0.1 K/CMM 0.0 - 0.5 04/03/2017 [facility] HEMATOLOGY Monocytes # 0.4 K/CMM 0.0 - 0.8 04/03/2017 [facility] Monocytes 5.8 % 2.0 - 12.0 04/03/2017 [facility] Lymphocytes 22.5 % 20.0 - 40.0 04/03/2017 [facility] Segs 69.1 % 45.0 - 75.0 04/03/2017 [facility] WBC 6.0 K/CMM 3.7 - 10.4 04/03/2017 [facility] Platelet 281 K/CMM 133 - 450 04/03/2017 [facility] MPV 7.6 fL 7.4 - 10.4 04/03/2017 [facility] Hct 38.0 % 36.0 - 48.0 04/03/2017 [facility] Hgb 13.2 g/dL 12.0 - 16.0 04/03/2017 [facility] RBC 4.43 M/CMM 4.20 - 5.40 04/03/2017 [facility] MCHC 34.6 g/dL 32.0 - 36.0 04/03/2017 [facility] RDW 14.5 % 11.5 - 14.5 04/03/2017 [facility] MCH 29.8 pg 27.0 - 31.0 04/03/2017 [facility] MCV 85.9 fL 80.0 - 98.0 04/03/2017 [facility] URINE AND STOOL UA Color Ltyellow 04/03/2017 [facility] URINE AND STOOL UA Urobilinogen <=1.0 mg/dL 0.1 - 1.0 04/03/2017 [facility] URINE AND STOOL UA Blood Negative (04/03/17 8:27 AM) Negative 04/03/2017 [facility] URINE AND STOOL UA RBC 1 /HPF 0 - 2 04/03/2017 [facility] URINE AND STOOL UA Bili Negative *NA* (04/03/17 8:27 AM) Negative 04/03/2017 [facility] URINE AND STOOL UA Mucus Few /LPF None Seen /LPF 04/03/2017 [facility] URINE AND STOOL UA Bacteria Occasional /HPF None Seen /HPF 04/03/2017 [facility] URINE AND STOOL UA Sq Epi Moderate /LPF Few /LPF 04/03/2017 [facility] URINE AND STOOL UA Nitrite Negative (04/03/17 8:27 AM) Negative 04/03/2017 [facility] URINE AND STOOL UA Leuk Est Negative (04/03/17 8:27 AM) Negative 04/03/2017 [facility] URINE AND STOOL UA WBC 2 /HPF 0 - 5 04/03/2017 [facility] URINE AND STOOL UA Spec Grav 1.013 <=1.030 04/03/2017 [facility] URINE AND STOOL UA Turbidity Slight *ABN* (04/03/17 8:27 AM) Clear 04/03/2017 [facility] URINE AND STOOL UA pH 5.0 5.0 - 8.0 04/03/2017 [facility] URINE AND STOOL UA Protein Negative mg/dL Negative mg/dL 04/03/2017 [facility] URINE AND STOOL UA Glucose Negative mg/dL Negative mg/dL 04/03/2017 [facility] URINE AND STOOL UA Ketones Negative mg/dL Negative mg/dL 04/03/2017 [facility] Abdomen/Pelvis w IV contrast CT Abdomen/Pelvis w IV contrast CT Clinical Indication: hernia, n/v, epigastric pain. Comparison: 03/11/2017. TECHNIQUE: Helical imaging was performed from diaphragm through the symphysis with coronal and sagittal reconstructions. CT imaging was performed with exposure control parameters to reduce radiation dose. IV CONTRAST: 100 cc Omnipaque. GI CONTRAST: None CT Radiation Dose: BTX=2482.09 mGy-cm FINDINGS: LOWER CHEST: Subsegmental atelectasis in the lung bases. LIVER: Mild diffuse fatty replacement. GALLBLADDER: Status post cholecystectomy. INTRAHEPATIC BILE DUCT AND EXTRAHEPATIC BILE DUCT: Unremarkable. PANCREAS: Unremarkable. SPLEEN: Unremarkable. ADRENALS: Unremarkable. KIDNEYS AND URETERS: 1 cm exophytic cyst arising from the interpolar region of the left kidney. Focal cortical scarring in the interpolar region is seen anteriorly. STOMACH: Unremarkable. BOWEL: Incidental transient intussusception within left upper quadrant jejunum. A large amount of fecal material is seen throughout colon. APPENDIX: Normal. PERITONEUM AND RETROPERITONEUM: No ascites or free air. There is no aortic aneurysm or dissection. Small fat-containing inguinal hernia. LYMPH NODES: Unremarkable. PELVIS: No pelvic mass or adenopathy. BLADDER: Unremarkable. OSSEOUS STRUCTURES: Joint space narrowing and subchondral sclerosis of both sacroiliac joints, and within the lumbar spine. SOFT TISSUES: Unremarkable. IMPRESSION: 1. No acute abdominal or pelvic abnormality. 2. Status post cholecystectomy. 3. Small fat-containing umbilical hernia. 4. Mild diffuse hepatic steatosis. SL: [id number] 04/03/2017 - - Read by: Dominique Wilson MD Dictated Date/time: 04/03/17 09:33 Electronically Signed by: Dominique Wilson MD 04/03/17 09:46 FINAL REPORT [facility] CHEM PANEL eGFR 63 mL/min/1.73m2 03/24/2017 Result Comment: The eGFR is calculated using the CKD-EPI formula. In most young, healthy individuals the eGFR will be >90 mL/min/1.73m2. The eGFR declines with age. An eGFR of 60-89 may be normal in some populations, particularly the elderly, for whom the CKD-EPI formula has not been extensively validated. Use of the eGFR is not recommended in the following populations: Individuals with unstable creatinine concentrations, including patients and those with serious co-morbid conditions. Patients with extremes in muscle mass or diet. The data above are obtained from the National Kidney Disease Education Program (NKDEP) which additionally recommends that when the eGFR is used in patients with extremes of body mass index for purposes of drug dosing, the eGFR should be multiplied by the estimated BMI. [facility] CHEM PANEL Albumin Lvl 3.8 g/dL 3.5 - 5.0 03/24/2017 [facility] CHEM PANEL ALT 29 unit/L 0 - 65 03/24/2017 [facility] CHEM PANEL AST 14 unit/L 0 - 37 03/24/2017 [facility] CHEM PANEL Calcium Lvl 9.2 mg/dL 8.5 - 10.5 03/24/2017 [facility] CHEM PANEL CO2 23 meq/L 24 - 32 03/24/2017 [facility] CHEM PANEL Total Protein 7.6 g/dL 6.4 - 8.4 03/24/2017 [facility] CHEM PANEL Alk Phos 121 unit/L 39 - 136 03/24/2017 [facility] CHEM PANEL Bili Total 0.5 mg/dL 0.2 - 1.3 03/24/2017 [facility] CHEM PANEL Glucose Lvl 86 mg/dL 70 - 99 03/24/2017 [facility] CHEM PANEL BUN 15 mg/dL 7 - 22 03/24/2017 [facility] CHEM PANEL Chloride Lvl 106 meq/L 95 - 109 03/24/2017 [facility] CHEM PANEL Potassium Lvl 3.6 meq/L 3.5 - 5.1 03/24/2017 [facility] CHEM PANEL Creatinine Lvl 1.10 mg/dL 0.50 - 1.40 03/24/2017 [facility] CHEM PANEL Sodium Lvl 139 meq/L 135 - 145 03/24/2017 [facility] CHEM PANEL A/G Ratio 1.0 0.7 - 1.6 03/24/2017 [facility] CHEM PANEL Globulin 3.8 g/dL 2.7 - 4.2 03/24/2017 [facility] CHEM PANEL B/C Ratio 14 6 - 25 03/24/2017 [facility] CHEM PANEL AGAP 13.6 meq/L 10.0 - 20.0 03/24/2017 [facility] CHEM PANEL Lipase Lvl 157 unit/L 73 - 393 03/24/2017 [facility] ENDOCRINOLOGY hCG Tot null 03/24/2017 [facility] HEMATOLOGY Basophils 1.0 % 0.0 - 1.0 03/24/2017 [facility] HEMATOLOGY Monocytes 6.8 % 2.0 - 12.0 03/24/2017 [facility] HEMATOLOGY Lymphocytes 27.7 % 20.0 - 40.0 03/24/2017 [facility] HEMATOLOGY Segs 61.2 % 45.0 - 75.0 03/24/2017 [facility] HEMATOLOGY Segs-Bands # 3.5 K/CMM 1.5 - 8.1 03/24/2017 [facility] HEMATOLOGY Eosinophils 3.3 % 0.0 - 4.0 03/24/2017 [facility] HEMATOLOGY Lymphocytes # 1.6 K/CMM 1.0 - 5.5 03/24/2017 [facility] HEMATOLOGY Basophils # 0.1 K/CMM 0.0 - 0.2 03/24/2017 [facility] HEMATOLOGY Monocytes # 0.4 K/CMM 0.0 - 0.8 03/24/2017 [facility] HEMATOLOGY Eosinophils # 0.2 K/CMM 0.0 - 0.5 03/24/2017 [facility] HEMATOLOGY Hgb 14.1 g/dL 12.0 - 16.0 03/24/2017 [facility] HEMATOLOGY RBC 4.61 M/CMM 4.20 - 5.40 03/24/2017 [facility] HEMATOLOGY WBC 5.7 K/CMM 3.7 - 10.4 03/24/2017 [facility] HEMATOLOGY Hct 39.4 % 36.0 - 48.0 03/24/2017 [facility] HEMATOLOGY MCH 30.7 pg 27.0 - 31.0 03/24/2017 [facility] HEMATOLOGY MCV 85.5 fL 80.0 - 98.0 03/24/2017 [facility] HEMATOLOGY MCHC 35.9 g/dL 32.0 - 36.0 03/24/2017 [facility] HEMATOLOGY RDW 14.5 % 11.5 - 14.5 03/24/2017 [facility] HEMATOLOGY MPV 7.3 fL 7.4 - 10.4 03/24/2017 [facility] HEMATOLOGY Platelet 287 K/CMM 133 - 450 03/24/2017 [facility] URINE AND STOOL UA Urobilinogen <=1.0 mg/dL 0.1 - 1.0 03/24/2017 [facility] URINE AND STOOL UA Color Ltyellow 03/24/2017 [facility] URINE AND STOOL UA Bili Negative *NA* (03/24/17 9:51 AM) Negative 03/24/2017 [facility] URINE AND STOOL UA Blood Negative (03/24/17 9:51 AM) Negative 03/24/2017 [facility] URINE AND STOOL UA Ketones Negative mg/dL Negative mg/dL 03/24/2017 [facility] URINE AND STOOL UA pH 5.0 5.0 - 8.0 03/24/2017 [facility] URINE AND STOOL UA Spec Grav 1.013 <=1.030 03/24/2017 [facility] URINE AND STOOL UA Turbidity Clear (03/24/17 9:51 AM) Clear 03/24/2017 [facility] URINE AND STOOL UA Glucose Negative mg/dL Negative mg/dL 03/24/2017 [facility] URINE AND STOOL UA Protein Negative mg/dL Negative mg/dL 03/24/2017 [facility] URINE AND STOOL UA Sq Epi Occasional /LPF Few /LPF 03/24/2017 [facility] URINE AND STOOL UA Leuk Est Negative (03/24/17 9:51 AM) Negative 03/24/2017 [facility] URINE AND STOOL UA Nitrite Negative (03/24/17 9:51 AM) Negative 03/24/2017 [facility] URINE AND STOOL UA Mucus Few /LPF None Seen /LPF 03/24/2017 [facility] URINE AND STOOL UA Bacteria Occasional /HPF None Seen /HPF 03/24/2017 [facility] URINE AND STOOL UA Hyal Cast 3 /LPF 0 - 2 03/24/2017 [facility] URINE AND STOOL UA RBC 1 /HPF 0 - 2 03/24/2017 [facility] URINE AND STOOL UA WBC 1 /HPF 0 - 5 03/24/2017 [facility] CHEM PANEL A/G Ratio 0.9 0.7 - 1.6 03/11/2017 [facility] CHEM PANEL Globulin 3.4 g/dL 2.7 - 4.2 03/11/2017 [facility] CHEM PANEL B/C Ratio 10 6 - 25 03/11/2017 [facility] CHEM PANEL AGAP 11.2 meq/L 10.0 - 20.0 03/11/2017 [facility] CHEM PANEL eGFR 63 mL/min/1.73m2 03/11/2017 Result Comment: The eGFR is calculated using the CKD-EPI formula. In most young, healthy individuals the eGFR will be >90 mL/min/1.73m2. The eGFR declines with age. An eGFR of 60-89 may be normal in some populations, particularly the elderly, for whom the CKD-EPI formula has not been extensively validated. Use of the eGFR is not recommended in the following populations: Individuals with unstable creatinine concentrations, including patients and those with serious co-morbid conditions. Patients with extremes in muscle mass or diet. The data above are obtained from the National Kidney Disease Education Program (NKDEP) which additionally recommends that when the eGFR is used in patients with extremes of body mass index for purposes of drug dosing, the eGFR should be multiplied by the estimated BMI. [facility] CHEM PANEL Calcium Lvl 8.4 mg/dL 8.5 - 10.5 03/11/2017 [facility] CHEM PANEL ALT 22 unit/L 0 - 65 03/11/2017 [facility] CHEM PANEL AST 14 unit/L 0 - 37 03/11/2017 [facility] CHEM PANEL Albumin Lvl 3.2 g/dL 3.5 - 5.0 03/11/2017 [facility] CHEM PANEL Chloride Lvl 105 meq/L 95 - 109 03/11/2017 [facility] CHEM PANEL CO2 26 meq/L 24 - 32 03/11/2017 [facility] CHEM PANEL Potassium Lvl 3.2 meq/L 3.5 - 5.1 03/11/2017 [facility] CHEM PANEL Total Protein 6.6 g/dL 6.4 - 8.4 03/11/2017 [facility] CHEM PANEL Bili Total 0.3 mg/dL 0.2 - 1.3 03/11/2017 [facility] CHEM PANEL Creatinine Lvl 1.10 mg/dL 0.50 - 1.40 03/11/2017 [facility] CHEM PANEL Sodium Lvl 139 meq/L 135 - 145 03/11/2017 [facility] CHEM PANEL Alk Phos 113 unit/L 39 - 136 03/11/2017 [facility] CHEM PANEL Glucose Lvl 137 mg/dL 70 - 99 03/11/2017 [facility] CHEM PANEL BUN 11 mg/dL 7 - 22 03/11/2017 [facility] CHEM PANEL Lipase Lvl 149 unit/L 73 - 393 03/11/2017 [facility] HEMATOLOGY MCHC 34.9 g/dL 32.0 - 36.0 03/11/2017 [facility] HEMATOLOGY MCH 29.7 pg 27.0 - 31.0 03/11/2017 [facility] HEMATOLOGY Hct 37.6 % 36.0 - 48.0 03/11/2017 [facility] HEMATOLOGY MCV 85.0 fL 80.0 - 98.0 03/11/2017 [facility] HEMATOLOGY Hgb 13.1 g/dL 12.0 - 16.0 03/11/2017 [facility] HEMATOLOGY MPV 7.4 fL 7.4 - 10.4 03/11/2017 [facility] HEMATOLOGY RDW 14.1 % 11.5 - 14.5 03/11/2017 [facility] HEMATOLOGY Platelet 236 K/CMM 133 - 450 03/11/2017 [facility] HEMATOLOGY WBC 8.0 K/CMM 3.7 - 10.4 03/11/2017 [facility] HEMATOLOGY RBC 4.42 M/CMM 4.20 - 5.40 03/11/2017 [facility] HEMATOLOGY Basophils # 0.1 K/CMM 0.0 - 0.2 03/11/2017 [facility] HEMATOLOGY Segs-Bands # 5.8 K/CMM 1.5 - 8.1 03/11/2017 [facility] HEMATOLOGY Lymphocytes # 1.6 K/CMM 1.0 - 5.5 03/11/2017 [facility] HEMATOLOGY Monocytes # 0.4 K/CMM 0.0 - 0.8 03/11/2017 [facility] HEMATOLOGY Eosinophils # 0.2 K/CMM 0.0 - 0.5 03/11/2017 [facility] HEMATOLOGY Lymphocytes 19.3 % 20.0 - 40.0 03/11/2017 [facility] HEMATOLOGY Monocytes 5.3 % 2.0 - 12.0 03/11/2017 [facility] HEMATOLOGY Eosinophils 2.9 % 0.0 - 4.0 03/11/2017 [facility] HEMATOLOGY Basophils 0.9 % 0.0 - 1.0 03/11/2017 [facility] HEMATOLOGY Segs 71.6 % 45.0 - 75.0 03/11/2017 [facility] URINE AND STOOL UA Urobilinogen <=1.0 mg/dL 0.1 - 1.0 03/11/2017 [facility] URINE AND STOOL UA Bacteria Few /HPF None Seen /HPF 03/11/2017 [facility] URINE AND STOOL UA Sq Epi Many /LPF Few /LPF 03/11/2017 [facility] URINE AND STOOL UA RBC 13 /HPF 0 - 2 03/11/2017 [facility] URINE AND STOOL UA WBC null 0 - 5 03/11/2017 [facility] URINE AND STOOL UA Mucus Few /LPF None Seen /LPF 03/11/2017 [facility] URINE AND STOOL UA Hyal Cast 1 /LPF 0 - 2 03/11/2017 [facility] URINE AND STOOL UA Color Yellow *NA* (03/11/17 8:23 AM) Yellow 03/11/2017 [facility] URINE AND STOOL UA pH 5.0 5.0 - 8.0 03/11/2017 [facility] URINE AND STOOL UA Glucose Negative mg/dL Negative mg/dL 03/11/2017 [facility] URINE AND STOOL UA Protein 30 mg/dL Negative mg/dL 03/11/2017 [facility] URINE AND STOOL UA Bili Negative *NA* (03/11/17 8:23 AM) Negative 03/11/2017 [facility] URINE AND STOOL UA Ketones Negative mg/dL Negative mg/dL 03/11/2017 [facility] URINE AND STOOL UA Blood Negative (03/11/17 8:23 AM) Negative 03/11/2017 [facility] URINE AND STOOL UA Spec Grav 1.017 <=1.030 03/11/2017 [facility] URINE AND STOOL UA Turbidity Marked *ABN* (03/11/17 8:23 AM) Clear 03/11/2017 [facility] URINE AND STOOL UA Leuk Est Large *ABN* (03/11/17 8:23 AM) Negative 03/11/2017 [facility] URINE AND STOOL UA Nitrite Negative (03/11/17 8:23 AM) Negative 03/11/2017 [facility] URINE CHEM U Preg Negative (03/11/17 8:23 AM) Negative 03/11/2017 [facility] Renal Stone CT Renal Stone CT Clinical Indication: right flank pain, dysuria, hx kidney stones; Comparison: CT abdomen and pelvis 01/13/2017 TECHNIQUE: Noncontrasted helical imaging was performed from the kidneys through the symphysis as a renal stone protocol. Axial and coronal reformations are available. CT Radiation Dose DLP: 1296 mGy-cm FINDINGS: This examination is limited for the evaluation of solid organs and vascular structures due to lack of intravenous contrast, which is standard for urinary calculus assessment CT. KIDNEYS: Punctate bilateral nonobstructing renal calculi. Both kidneys have a lobulated contour. A 0.9 cm partially exophytic hypodense left renal lesion is unchanged. LOWER CHEST: Mild atelectasis in the lung bases. SOLID ORGANS: The visualized liver, spleen, pancreas, and adrenal glands are normal. Cholecystectomy. BOWEL: No acute bowel pathology. PERITONEUM: No free intraperitoneal fluid or air. Incidental retroaortic left renal vein. RETROPERITONEUM: No adenopathy. Aorta is normal. PELVIS: No pelvic mass. The urinary bladder is normal. The uterus is surgically absent. MUSCULOSKELETAL: No acute osseous abnormalities. Small fat-containing umbilical hernia. Small fat-containing supraumbilical ventral hernia. IMPRESSION: 1. No obstructing calculi or hydronephrosis. Unchanged punctate bilateral nonobstructing renal calculi. SL: [id number] 03/11/2017 - - Read by: Vasiliy Hernandez MD Dictated Date/time: 03/11/17 09:07 Electronically Signed by: Vasiliy Hernandez MD 03/11/17 09:19 FINAL REPORT [facility] CHEM PANEL Lipase Lvl 113 unit/L 73 - 393 01/13/2017 [facility] CHEM PANEL eGFR 71 mL/min/1.73m2 01/13/2017 Result Comment: The eGFR is calculated using the CKD-EPI formula. In most young, healthy individuals the eGFR will be >90 mL/min/1.73m2. The eGFR declines with age. An eGFR of 60-89 may be normal in some populations, particularly the elderly, for whom the CKD-EPI formula has not been extensively validated. Use of the eGFR is not recommended in the following populations: Individuals with unstable creatinine concentrations, including patients and those with serious co-morbid conditions. Patients with extremes in muscle mass or diet. The data above are obtained from the National Kidney Disease Education Program (NKDEP) which additionally recommends that when the eGFR is used in patients with extremes of body mass index for purposes of drug dosing, the eGFR should be multiplied by the estimated BMI. [facility] CHEM PANEL Albumin Lvl 3.5 g/dL 3.5 - 5.0 01/13/2017 [facility] CHEM PANEL ALT 35 unit/L 0 - 65 01/13/2017 [facility] CHEM PANEL Total Protein 7.2 g/dL 6.4 - 8.4 01/13/2017 [facility] CHEM PANEL Bili Total 0.7 mg/dL 0.2 - 1.3 01/13/2017 [facility] CHEM PANEL AST 16 unit/L 0 - 37 01/13/2017 [facility] CHEM PANEL Alk Phos 116 unit/L 39 - 136 01/13/2017 [facility] CHEM PANEL Calcium Lvl 8.5 mg/dL 8.5 - 10.5 01/13/2017 [facility] CHEM PANEL CO2 22 meq/L 24 - 32 01/13/2017 [facility] CHEM PANEL BUN 14 mg/dL 7 - 22 01/13/2017 [facility] CHEM PANEL Glucose Lvl 139 mg/dL 70 - 99 01/13/2017 [facility] CHEM PANEL Creatinine Lvl 1.00 mg/dL 0.50 - 1.40 01/13/2017 [facility] CHEM PANEL Sodium Lvl 136 meq/L 135 - 145 01/13/2017 [facility] CHEM PANEL Chloride Lvl 104 meq/L 95 - 109 01/13/2017 [facility] CHEM PANEL Potassium Lvl 3.7 meq/L 3.5 - 5.1 01/13/2017 [facility] CHEM PANEL Globulin 3.7 g/dL 2.7 - 4.2 01/13/2017 [facility] CHEM PANEL B/C Ratio 14 6 - 25 01/13/2017 [facility] CHEM PANEL A/G Ratio 0.9 0.7 - 1.6 01/13/2017 [facility] CHEM PANEL AGAP 13.7 meq/L 10.0 - 20.0 01/13/2017 [facility] HEMATOLOGY MPV 7.4 fL 7.4 - 10.4 01/13/2017 [facility] HEMATOLOGY Platelet 308 K/CMM 133 - 450 01/13/2017 [facility] HEMATOLOGY RDW 14.7 % 11.5 - 14.5 01/13/2017 [facility] MCHC 34.0 g/dL 32.0 - 36.0 01/13/2017 [facility] HEMATOLOGY WBC 10.2 K/CMM 3.7 - 10.4 01/13/2017 [facility] MCH 28.8 pg 27.0 - 31.0 01/13/2017 [facility] MCV 84.7 fL 80.0 - 98.0 01/13/2017 [facility] Hct 38.3 % 36.0 - 48.0 01/13/2017 [facility] Hgb 13.0 g/dL 12.0 - 16.0 01/13/2017 [facility] RBC 4.53 M/CMM 4.20 - 5.40 01/13/2017 [facility] HEMATOLOGY Segs-Bands # 8.1 K/CMM 1.5 - 8.1 01/13/2017 [facility] Lymphocytes # 1.3 K/CMM 1.0 - 5.5 01/13/2017 [facility] Monocytes # 0.5 K/CMM 0.0 - 0.8 01/13/2017 [facility] HEMATOLOGY Eosinophils # 0.1 K/CMM 0.0 - 0.5 01/13/2017 [facility] HEMATOLOGY Basophils 0.5 % 0.0 - 1.0 01/13/2017 [facility] HEMATOLOGY Eosinophils 1.4 % 0.0 - 4.0 01/13/2017 [facility] Lymphocytes 13.0 % 20.0 - 40.0 01/13/2017 [facility] Segs 80.0 % 45.0 - 75.0 01/13/2017 [facility] Monocytes 5.1 % 2.0 - 12.0 01/13/2017 [facility] URINE AND STOOL UA Ketones Negative *NA* (01/13/17 8:36 AM) Negative 01/13/2017 [facility] URINE AND STOOL UA Urobilinogen 0.2 EU/dL 0.1 - 1.0 01/13/2017 [facility] URINE AND STOOL UA Leuk Est Negative (01/13/17 8:36 AM) Negative 01/13/2017 [facility] URINE AND STOOL UA Nitrite Negative (01/13/17 8:36 AM) Negative 01/13/2017 [facility] URINE AND STOOL UA Bili Negative *NA* (01/13/17 8:36 AM) Negative 01/13/2017 [facility] URINE AND STOOL UA Blood Trace *ABN* (01/13/17 8:36 AM) Negative 01/13/2017 [facility] URINE AND STOOL UA Glucose Negative (01/13/17 8:36 AM) Negative 01/13/2017 [facility] URINE AND STOOL UA Protein 30 mg/dL Negative mg/dL 01/13/2017 [facility] URINE AND STOOL UA pH 6.0 5.0 - 8.0 01/13/2017 [facility] URINE AND STOOL UA Spec Grav >=1.030 *ABN* (01/13/17 8:36 AM) <=1.030 01/13/2017 [facility] URINE AND STOOL UA Color Yellow *NA* (01/13/17 8:36 AM) Yellow 01/13/2017 [facility] URINE AND STOOL UA Turbidity Clear (01/13/17 8:36 AM) Clear 01/13/2017 [facility] URINE AND STOOL UA WBC 7 /HPF 0 - 5 01/13/2017 [facility] URINE AND STOOL UA [place] Yeast Few /HPF None Seen /HPF 01/13/2017 [facility] URINE AND STOOL UA Mucus Moderate /LPF None Seen /LPF 01/13/2017 [facility] URINE AND STOOL UA Hyal Cast 1 /LPF 0 - 2 01/13/2017 [facility] URINE AND STOOL UA Sq Epi Many /LPF Few /LPF 01/13/2017 [facility] URINE AND STOOL UA RBC 34 /HPF 0 - 2 01/13/2017 [facility] Chest 2 views DX Chest 2 views DX EXAM: Chest 2 views DX DATE: 01/13/2017 1:12 PM CDT INDICATION: - pleural effusion. Back pain. COMPARISON: 10/07/2016. IMPRESSION: Stable cardiac silhouette and mediastinum. No focal consolidation, significant pleural effusion or pneumothorax. SL: [id number] 01/13/2017 - - Read by: Feliz Barrow MD Dictated Date/time: 01/13/17 13:32 Electronically Signed by: Feliz Barrow MD 01/13/17 13:33 FINAL REPORT [facility] Renal Stone CT Renal Stone CT Patient Name: ANGELA ESPINOSA : 1975; Age: 41 years Female MR: [id number] Study: Renal Stone CT 01/13/2017 8:28 AM CDT Clinical Indication: CT DLP dose 1269.22 mGycm - right flank, h/o hyst and stones. constipation x 1 month. COMPARISON: None TECHNIQUE: Helical imaging was performed diaphragm through the symphysis with multiplanar reformations obtained without IV contrast. FINDINGS: LOWER CHEST: Small bilateral pleural effusions. Cardiomegaly. ABDOMEN: No free air. Small umbilical fat-containing hernia. LIVER: Normal. BILIARY TREE: Normal. GALLBLADDER: Surgically absent. PANCREAS: Normal. SPLEEN: Normal. ADRENALS: Normal. KIDNEYS: Bilateral renal stones. The largest on the right measures 1-2 mm, 225 Hounsfield units. PELVIS: No ureterolithiasis. The bladder is normally distended. BOWEL: No small bowel obstruction. Fecal impaction with thickening of the surrounding perirectal colonic wall and presacral inflammation. Marked degree of constipation. Normal appendix. PERITONEUM: No free intraperitoneal fluid. RETROPERITONEUM: No aortic aneurysm. MUSCULOSKELETAL: The skeleton is intact. IMPRESSION: 1. Fecal impaction with perirectal sigmoid wall thickening and inflammation compatible with stercoral colitis. Constipation. 2. Bilateral pleural effusions. 3. Cardiomegaly. 4. Postcholecystectomy. SL: [id number] 01/13/2017 - - Read by: Bg Monge MD Dictated Date/time: 01/13/17 09:03 Electronically Signed by: Bg Monge MD 01/13/17 09:13 FINAL REPORT [facility] CHEM PANEL Lipase Lvl 175 unit/L 73 - 393 11/20/2016 [facility] CHEM PANEL Amylase Lvl 83 unit/L 25 - 115 11/20/2016 [facility] CHEM PANEL A/G Ratio 1.0 0.7 - 1.6 11/20/2016 [facility] CHEM PANEL Globulin 3.5 g/dL 2.7 - 4.2 11/20/2016 [facility] CHEM PANEL AGAP 8.6 meq/L 10.0 - 20.0 11/20/2016 [facility] CHEM PANEL B/C Ratio 11 6 - 25 11/20/2016 [facility] CHEM PANEL eGFR 82 mL/min/1.73m2 11/20/2016 Result Comment: The eGFR is calculated using the CKD-EPI formula. In most young, healthy individuals the eGFR will be >90 mL/min/1.73m2. The eGFR declines with age. An eGFR of 60-89 may be normal in some populations, particularly the elderly, for whom the CKD-EPI formula has not been extensively validated. Use of the eGFR is not recommended in the following populations: Individuals with unstable creatinine concentrations, including patients and those with serious co-morbid conditions. Patients with extremes in muscle mass or diet. The data above are obtained from the National Kidney Disease Education Program (NKDEP) which additionally recommends that when the eGFR is used in patients with extremes of body mass index for purposes of drug dosing, the eGFR should be multiplied by the estimated BMI. [facility] CHEM PANEL Bili Total 0.4 mg/dL 0.2 - 1.3 11/20/2016 [facility] CHEM PANEL Alk Phos 89 unit/L 39 - 136 11/20/2016 [facility] CHEM PANEL AST 10 unit/L 0 - 37 11/20/2016 [facility] CHEM PANEL ALT 17 unit/L 0 - 65 11/20/2016 [facility] CHEM PANEL Albumin Lvl 3.6 g/dL 3.5 - 5.0 11/20/2016 [facility] CHEM PANEL Total Protein 7.1 g/dL 6.4 - 8.4 11/20/2016 [facility] CHEM PANEL Calcium Lvl 8.7 mg/dL 8.5 - 10.5 11/20/2016 [facility] CHEM PANEL CO2 27 meq/L 24 - 32 11/20/2016 [facility] CHEM PANEL Chloride Lvl 110 meq/L 95 - 109 11/20/2016 [facility] CHEM PANEL Potassium Lvl 3.6 meq/L 3.5 - 5.1 11/20/2016 [facility] CHEM PANEL Sodium Lvl 142 meq/L 135 - 145 11/20/2016 [facility] CHEM PANEL Creatinine Lvl 0.89 mg/dL 0.50 - 1.40 11/20/2016 [facility] CHEM PANEL BUN 10 mg/dL 7 - 22 11/20/2016 [facility] CHEM PANEL Glucose Lvl 110 mg/dL 70 - 99 11/20/2016 [facility] HEMATOLOGY Basophils 0.7 % 0.0 - 1.0 11/20/2016 [facility] HEMATOLOGY Lymphocytes # 1.6 K/CMM 1.0 - 5.5 11/20/2016 [facility] HEMATOLOGY Eosinophils # 0.2 K/CMM 0.0 - 0.5 11/20/2016 [facility] HEMATOLOGY Monocytes # 0.2 K/CMM 0.0 - 0.8 11/20/2016 [facility] HEMATOLOGY Segs-Bands # 4.0 K/CMM 1.5 - 8.1 11/20/2016 [facility] HEMATOLOGY Segs 64.8 % 45.0 - 75.0 11/20/2016 [facility] HEMATOLOGY Lymphocytes 26.8 % 20.0 - 40.0 11/20/2016 [facility] HEMATOLOGY Eosinophils 3.7 % 0.0 - 4.0 11/20/2016 [facility] Monocytes 4.0 % 2.0 - 12.0 11/20/2016 [facility] RDW 14.2 % 11.5 - 14.5 11/20/2016 [facility] MPV 7.6 fL 7.4 - 10.4 11/20/2016 [facility] Platelet 267 K/CMM 133 - 450 11/20/2016 [facility] MCHC 33.3 g/dL 32.0 - 36.0 11/20/2016 [facility] Hct 40.7 % 36.0 - 48.0 11/20/2016 [facility] MCV 85.7 fL 80.0 - 98.0 11/20/2016 [facility] MCH 28.5 pg 27.0 - 31.0 11/20/2016 [facility] WBC 6.1 K/CMM 3.7 - 10.4 11/20/2016 [facility] Hgb 13.5 g/dL 12.0 - 16.0 11/20/2016 [facility] RBC 4.75 M/CMM 4.20 - 5.40 11/20/2016 [facility] URINE AND STOOL UA Urobilinogen <=1.0 mg/dL 0.1 - 1.0 11/20/2016 [facility] URINE AND STOOL UA Color Ltyellow 11/20/2016 [facility] URINE AND STOOL UA Ketones Negative mg/dL Negative mg/dL 11/20/2016 [facility] URINE AND STOOL UA Bili Negative *NA* (11/20/16 8:05 AM) Negative 11/20/2016 [facility] URINE AND STOOL UA Leuk Est Negative (11/20/16 8:05 AM) Negative 11/20/2016 [facility] URINE AND STOOL UA RBC 2 /HPF 0 - 2 11/20/2016 [facility] URINE AND STOOL UA WBC 1 /HPF 0 - 5 11/20/2016 [facility] URINE AND STOOL UA Nitrite Negative (11/20/16 8:05 AM) Negative 11/20/2016 [facility] URINE AND STOOL UA Sq Epi Many /LPF Few /LPF 11/20/2016 [facility] URINE AND STOOL UA Blood Small *ABN* (11/20/16 8:05 AM) Negative 11/20/2016 [facility] URINE AND STOOL UA Bacteria Occasional /HPF None Seen /HPF 11/20/2016 [facility] URINE AND STOOL UA Protein Negative mg/dL Negative mg/dL 11/20/2016 [facility] URINE AND STOOL UA Glucose Negative mg/dL Negative mg/dL 11/20/2016 [facility] URINE AND STOOL UA Spec Grav 1.014 <=1.030 11/20/2016 [facility] URINE AND STOOL UA pH 6.0 5.0 - 8.0 11/20/2016 [facility] URINE AND STOOL UA Turbidity Slight *ABN* (11/20/16 8:05 AM) Clear 11/20/2016 [facility] URINE CHEM U Preg Negative (11/20/16 8:05 AM) Negative 11/20/2016 [facility] Renal Stone CT Renal Stone CT After further discussion with the emergency room physician, he is concerned about possible tiny calculus in the right ureter seen only on the coronal images, series 301B, image 54. This does not demonstrate an actual calcific density, and likely simply volume averaging artifact associated with the crossing vessel. However, remains possible that a tiny 1 mm calculus could be present. There are no other signs of proximal ureteral obstruction to confirm this, however. There is persistent concern for urinary tract obstruction, contrast enhanced study or intravenous pyelogram could be more sensitive. Patient Name: ANGELA ESPINOSA : 1975; Age: 40 years y/o Female MR: [id number] Study: Renal Stone CT 11/20/2016 7:55 AM CDT Ordering Physician: Clinical Indication: CT DLP: 1264.52 mGy-cm - right flank pain. "Back pain radiating down to my right side" +dysuria onset: 2 days Hx: kidney stones, hysterectomy, cholecystectomy; Comparison: 10/14/2016 CT abdomen pelvis TECHNIQUE: Noncontrasted helical imaging was performed from the kidneys through the symphysis as a renal stone protocol. Multiplanar reformations are available. FINDINGS: This examination is limited for the evaluation of solid organs and vascular structures due to withheld intravenous contrast -- the standard for urinary calculus assessment CT. KIDNEYS: 2 nonobstructive right urinary calculi up to 4 mm. 4 or 5 punctate nonobstructive left renal calculi, largest 4 mm. No ureteral calculus or urinary tract obstruction. No perinephric stranding or inflammation. 8mm left renal cortical lesion, too small to characterize as cystic versus solid appears unchanged. No new renal lesion seen. LOWER CHEST: The lung bases are clear. SOLID ORGANS: Prior cholecystectomy. Noncontrast liver, spleen, pancreas, adrenal glands, kidneys appear otherwise normal. No biliary ductal dilatation. BOWEL: No acute bowel pathology. Normal appendix. PERITONEUM: No free intraperitoneal fluid or air. 3 cm umbilical hernia containing only fat. RETROPERITONEUM: No adenopathy. Aorta is normal. PELVIS: No pelvic mass. The urinary bladder is normal. MUSCULOSKELETAL: The skeleton is intact. IMPRESSION: Stable nonobstructive bilateral nephrolithiasis. No acute urinary tract finding. Normal appendix. Post cholecystectomy, without pathologic biliary ductal dilatation. Small umbilical hernia containing only fat. No acute findings. SL: [id number] 11/20/2016 - - Read by: Noah Regan MD Dictated Date/time: 11/20/16 10:48 Electronically Signed by: Noah Regan MD 11/20/16 10:55 FINAL REPORT - - Read by: Noah Regan MD Dictated Date/time: 11/20/16 10:00 Electronically Signed by: Noah Regan MD 11/20/16 10:12 FINAL REPORT [facility] CHEM PANEL eGFR 75 mL/min/1.73m2 11/08/2016 Result Comment: The eGFR is calculated using the CKD-EPI formula. In most young, healthy individuals the eGFR will be >90 mL/min/1.73m2. The eGFR declines with age. An eGFR of 60-89 may be normal in some populations, particularly the elderly, for whom the CKD-EPI formula has not been extensively validated. Use of the eGFR is not recommended in the following populations: Individuals with unstable creatinine concentrations, including patients and those with serious co-morbid conditions. Patients with extremes in muscle mass or diet. The data above are obtained from the National Kidney Disease Education Program (NKDEP) which additionally recommends that when the eGFR is used in patients with extremes of body mass index for purposes of drug dosing, the eGFR should be multiplied by the estimated BMI. [facility] CHEM PANEL Albumin Lvl 3.4 g/dL 3.5 - 5.0 11/08/2016 [facility] CHEM PANEL AST 10 unit/L 0 - 37 11/08/2016 [facility] CHEM PANEL ALT 18 unit/L 0 - 65 11/08/2016 [facility] CHEM PANEL Calcium Lvl 8.4 mg/dL 8.5 - 10.5 11/08/2016 [facility] CHEM PANEL Total Protein 6.9 g/dL 6.4 - 8.4 11/08/2016 [facility] CHEM PANEL Potassium Lvl 4.0 meq/L 3.5 - 5.1 11/08/2016 [facility] CHEM PANEL CO2 25 meq/L 24 - 32 11/08/2016 [facility] CHEM PANEL Chloride Lvl 106 meq/L 95 - 109 11/08/2016 [facility] CHEM PANEL BUN 16 mg/dL 7 - 22 11/08/2016 [facility] CHEM PANEL Sodium Lvl 138 meq/L 135 - 145 11/08/2016 [facility] CHEM PANEL Creatinine Lvl 0.96 mg/dL 0.50 - 1.40 11/08/2016 [facility] CHEM PANEL Glucose Lvl 160 mg/dL 70 - 99 11/08/2016 [facility] CHEM PANEL Alk Phos 92 unit/L 39 - 136 11/08/2016 [facility] CHEM PANEL Bili Total 0.4 mg/dL 0.2 - 1.3 11/08/2016 [facility] CHEM PANEL Globulin 3.5 g/dL 2.7 - 4.2 11/08/2016 [facility] CHEM PANEL A/G Ratio 1.0 0.7 - 1.6 11/08/2016 [facility] CHEM PANEL B/C Ratio 17 6 - 25 11/08/2016 [facility] CHEM PANEL AGAP 11.0 meq/L 10.0 - 20.0 11/08/2016 [facility] CHEM PANEL Lipase Lvl 168 unit/L 73 - 393 11/08/2016 [facility] HEMATOLOGY Eosinophils # 0.2 K/CMM 0.0 - 0.5 11/08/2016 [facility] HEMATOLOGY Lymphocytes # 1.2 K/CMM 1.0 - 5.5 11/08/2016 [facility] HEMATOLOGY Segs-Bands # 3.6 K/CMM 1.5 - 8.1 11/08/2016 [facility] HEMATOLOGY Monocytes # 0.3 K/CMM 0.0 - 0.8 11/08/2016 [facility] HEMATOLOGY Basophils 0.7 % 0.0 - 1.0 11/08/2016 [facility] HEMATOLOGY Eosinophils 3.3 % 0.0 - 4.0 11/08/2016 [facility] HEMATOLOGY Segs 68.7 % 45.0 - 75.0 11/08/2016 [facility] HEMATOLOGY Monocytes 5.5 % 2.0 - 12.0 11/08/2016 [facility] HEMATOLOGY Lymphocytes 21.8 % 20.0 - 40.0 11/08/2016 [facility] MPV 7.7 fL 7.4 - 10.4 11/08/2016 [facility] Platelet 208 K/CMM 133 - 450 11/08/2016 [facility] RDW 14.5 % 11.5 - 14.5 11/08/2016 [facility] MCHC 33.5 g/dL 32.0 - 36.0 11/08/2016 [facility] MCH 28.8 pg 27.0 - 31.0 11/08/2016 [facility] MCV 86.0 fL 80.0 - 98.0 11/08/2016 [facility] Hct 39.3 % 36.0 - 48.0 11/08/2016 [facility] Hgb 13.2 g/dL 12.0 - 16.0 11/08/2016 [facility] WBC 5.3 K/CMM 3.7 - 10.4 11/08/2016 [facility] RBC 4.57 M/CMM 4.20 - 5.40 11/08/2016 [facility] URINE AND STOOL UA Blood Negative (11/08/16 8:58 AM) Negative 11/08/2016 [facility] URINE AND STOOL UA Bili Negative *NA* (11/08/16 8:58 AM) Negative 11/08/2016 [facility] URINE AND STOOL UA Ketones Negative mg/dL Negative mg/dL 11/08/2016 [facility] URINE AND STOOL UA Glucose Negative mg/dL Negative mg/dL 11/08/2016 [facility] URINE AND STOOL UA Nitrite Positive *ABN* (11/08/16 8:58 AM) Negative 11/08/2016 [facility] URINE AND STOOL UA Leuk Est Trace *ABN* (11/08/16 8:58 AM) Negative 11/08/2016 [facility] URINE AND STOOL UA Sq Epi Many /LPF Few /LPF 11/08/2016 [facility] URINE AND STOOL UA WBC 2 /HPF 0 - 5 11/08/2016 [facility] URINE AND STOOL UA Mucus Few /LPF None Seen /LPF 11/08/2016 [facility] URINE AND STOOL UA Bacteria Moderate /HPF None Seen /HPF 11/08/2016 [facility] URINE AND STOOL UA Trans Epi 1 /LPF <=0 /LPF 11/08/2016 [facility] URINE AND STOOL UA Urobilinogen <=1.0 mg/dL 0.1 - 1.0 11/08/2016 [facility] URINE AND STOOL UA Color Yellow *NA* (11/08/16 8:58 AM) Yellow 11/08/2016 [facility] URINE AND STOOL UA Turbidity Slight *ABN* (11/08/16 8:58 AM) Clear 11/08/2016 [facility] URINE AND STOOL UA Protein Negative mg/dL Negative mg/dL 11/08/2016 [facility] URINE AND STOOL UA Spec Grav 1.017 <=1.030 11/08/2016 [facility] URINE AND STOOL UA pH 6.0 5.0 - 8.0 11/08/2016 [facility] ED Abdomen/Pelvis IV contrast only CT ED Abdomen/Pelvis IV contrast only CT CT ABDOMEN PELVIS WITH CONTRAST (ED PROTOCOL): HISTORY: Acute upper abdominal pain. TECHNIQUE: Multislice acquisition of the abdomen and pelvis was done with IV contrast. Oral contrast was not administered. Sagittal and coronal reconstructions were also done. FINDINGS: The appendix is normal. There is no significant diverticular disease. The gastrointestinal tract is otherwise within normal limits. The liver, spleen, pancreas, and adrenal glands show no significant abnormalities. The gallbladder has been removed. The uterus is not visualized. Bilateral renal calculi are unchanged compared to the CT on 10/15/2015. There is no evidence of urinary calculus or a small cortical cyst in the lower pole of the left kidney is again noted. There are no other significant renal abnormalities. There is no intraperitoneal free fluid or significant retroperitoneal abnormality. Small ventral and umbilical hernias containing omental fat which without bowel are noted. There are no acute osseous abnormalities. IMPRESSION: No acute CT abnormalities in the abdomen or pelvis. [id number] 11/08/2016 - - Read by: Vasiliy Gonzalez MD Dictated Date/time: 11/08/16 11:27 Electronically Signed by: Vasiliy Gonzalez MD 11/08/16 11:30 FINAL REPORT [facility] CHEM PANEL Lipase Lvl 223 unit/L 73 - 393 10/22/2016 [facility] CHEM PANEL A/G Ratio 1.1 0.7 - 1.6 10/22/2016 [facility] CHEM PANEL Globulin 3.7 g/dL 2.7 - 4.2 10/22/2016 [facility] CHEM PANEL AGAP 13.1 meq/L 10.0 - 20.0 10/22/2016 [facility] CHEM PANEL B/C Ratio 19 6 - 25 10/22/2016 [facility] CHEM PANEL eGFR 90 mL/min/1.73m2 10/22/2016 Result Comment: The eGFR is calculated using the CKD-EPI formula. In most young, healthy individuals the eGFR will be >90 mL/min/1.73m2. The eGFR declines with age. An eGFR of 60-89 may be normal in some populations, particularly the elderly, for whom the CKD-EPI formula has not been extensively validated. Use of the eGFR is not recommended in the following populations: Individuals with unstable creatinine concentrations, including patients and those with serious co-morbid conditions. Patients with extremes in muscle mass or diet. The data above are obtained from the National Kidney Disease Education Program (NKDEP) which additionally recommends that when the eGFR is used in patients with extremes of body mass index for purposes of drug dosing, the eGFR should be multiplied by the estimated BMI. [facility] CHEM PANEL Albumin Lvl 3.9 g/dL 3.5 - 5.0 10/22/2016 [facility] CHEM PANEL ALT 23 unit/L 0 - 65 10/22/2016 [facility] CHEM PANEL AST 11 unit/L 0 - 37 10/22/2016 [facility] CHEM PANEL Total Protein 7.6 g/dL 6.4 - 8.4 10/22/2016 [facility] CHEM PANEL Potassium Lvl 4.1 meq/L 3.5 - 5.1 10/22/2016 [facility] CHEM PANEL Alk Phos 99 unit/L 39 - 136 10/22/2016 [facility] CHEM PANEL Bili Total 0.7 mg/dL 0.2 - 1.3 10/22/2016 [facility] CHEM PANEL Glucose Lvl 91 mg/dL 70 - 99 10/22/2016 [facility] CHEM PANEL BUN 16 mg/dL 7 - 22 10/22/2016 [facility] CHEM PANEL CO2 25 meq/L 24 - 32 10/22/2016 [facility] CHEM PANEL Calcium Lvl 8.7 mg/dL 8.5 - 10.5 10/22/2016 [facility] CHEM PANEL Chloride Lvl 105 meq/L 95 - 109 10/22/2016 [facility] CHEM PANEL Creatinine Lvl 0.83 mg/dL 0.50 - 1.40 10/22/2016 [facility] CHEM PANEL Sodium Lvl 139 meq/L 135 - 145 10/22/2016 [facility] HEMATOLOGY Monocytes # 0.4 K/CMM 0.0 - 0.8 10/22/2016 [facility] HEMATOLOGY Eosinophils # 0.2 K/CMM 0.0 - 0.5 10/22/2016 [facility] HEMATOLOGY Basophils # 0.1 K/CMM 0.0 - 0.2 10/22/2016 [facility] HEMATOLOGY Lymphocytes # 1.5 K/CMM 1.0 - 5.5 10/22/2016 [facility] HEMATOLOGY Monocytes 6.4 % 2.0 - 12.0 10/22/2016 [facility] HEMATOLOGY Lymphocytes 25.7 % 20.0 - 40.0 10/22/2016 [facility] HEMATOLOGY Segs 64.2 % 45.0 - 75.0 10/22/2016 [facility] HEMATOLOGY Segs-Bands # 3.7 K/CMM 1.5 - 8.1 10/22/2016 [facility] HEMATOLOGY Basophils 0.9 % 0.0 - 1.0 10/22/2016 [facility] HEMATOLOGY Eosinophils 2.8 % 0.0 - 4.0 10/22/2016 [facility] MPV 7.9 fL 7.4 - 10.4 10/22/2016 [facility] Platelet 238 K/CMM 133 - 450 10/22/2016 [facility] RDW 14.4 % 11.5 - 14.5 10/22/2016 [facility] WBC 5.8 K/CMM 3.7 - 10.4 10/22/2016 [facility] MCHC 34.5 g/dL 32.0 - 36.0 10/22/2016 [facility] MCH 29.5 pg 27.0 - 31.0 10/22/2016 [facility] Hgb 13.5 g/dL 12.0 - 16.0 10/22/2016 [facility] Hct 38.9 % 36.0 - 48.0 10/22/2016 [facility] MCV 85.3 fL 80.0 - 98.0 10/22/2016 [facility] RBC 4.56 M/CMM 4.20 - 5.40 10/22/2016 [facility] URINE AND STOOL UA Urobilinogen <=1.0 mg/dL 0.1 - 1.0 10/22/2016 [facility] URINE AND STOOL UA RBC 2 /HPF 0 - 2 10/22/2016 [facility] URINE AND STOOL UA WBC 2 /HPF 0 - 5 10/22/2016 [facility] URINE AND STOOL UA Mucus Few /LPF None Seen /LPF 10/22/2016 [facility] URINE AND STOOL UA Blood Negative (10/22/16 8:53 AM) Negative 10/22/2016 [facility] URINE AND STOOL UA Bacteria Occasional /HPF None Seen /HPF 10/22/2016 [facility] URINE AND STOOL UA Bili Negative *NA* (10/22/16 8:53 AM) Negative 10/22/2016 [facility] URINE AND STOOL UA Sq Epi Occasional /LPF Few /LPF 10/22/2016 [facility] URINE AND STOOL UA Nitrite Positive *ABN* (10/22/16 8:53 AM) Negative 10/22/2016 [facility] URINE AND STOOL UA Leuk Est Negative (10/22/16 8:53 AM) Negative 10/22/2016 [facility] URINE AND STOOL UA Spec Grav 1.017 <=1.030 10/22/2016 [facility] URINE AND STOOL UA Ketones Negative mg/dL Negative mg/dL 10/22/2016 [facility] URINE AND STOOL UA Protein Negative mg/dL Negative mg/dL 10/22/2016 [facility] URINE AND STOOL UA Glucose Negative mg/dL Negative mg/dL 10/22/2016 [facility] URINE AND STOOL UA pH 6.0 5.0 - 8.0 10/22/2016 [facility] URINE AND STOOL UA Turbidity Clear (10/22/16 8:53 AM) Clear 10/22/2016 [facility] URINE AND STOOL UA Color Yellow *NA* (10/22/16 8:53 AM) Yellow 10/22/2016 [facility] URINE CHEM U Preg Negative (10/22/16 8:53 AM) Negative 10/22/2016 [facility] CHEM PANEL Amylase Lvl 94 unit/L 25 - 115 10/14/2016 [facility] CHEM PANEL Lipase Lvl 155 unit/L 73 - 393 10/14/2016 [facility] CHEM PANEL eGFR 92 mL/min/1.73m2 10/14/2016 Result Comment: The eGFR is calculated using the CKD-EPI formula. In most young, healthy individuals the eGFR will be >90 mL/min/1.73m2. The eGFR declines with age. An eGFR of 60-89 may be normal in some populations, particularly the elderly, for whom the CKD-EPI formula has not been extensively validated. Use of the eGFR is not recommended in the following populations: Individuals with unstable creatinine concentrations, including patients and those with serious co-morbid conditions. Patients with extremes in muscle mass or diet. The data above are obtained from the National Kidney Disease Education Program (NKDEP) which additionally recommends that when the eGFR is used in patients with extremes of body mass index for purposes of drug dosing, the eGFR should be multiplied by the estimated BMI. [facility] CHEM PANEL Albumin Lvl 3.4 g/dL 3.5 - 5.0 10/14/2016 [facility] CHEM PANEL ALT 29 unit/L 0 - 65 10/14/2016 [facility] CHEM PANEL Total Protein 6.6 g/dL 6.4 - 8.4 10/14/2016 [facility] CHEM PANEL Alk Phos 82 unit/L 39 - 136 10/14/2016 [facility] CHEM PANEL AST 13 unit/L 0 - 37 10/14/2016 [facility] CHEM PANEL CO2 25 meq/L 24 - 32 10/14/2016 [facility] CHEM PANEL Calcium Lvl 8.4 mg/dL 8.5 - 10.5 10/14/2016 [facility] CHEM PANEL Chloride Lvl 108 meq/L 95 - 109 10/14/2016 [facility] CHEM PANEL Bili Total 0.3 mg/dL 0.2 - 1.3 10/14/2016 [facility] CHEM PANEL Sodium Lvl 139 meq/L 135 - 145 10/14/2016 [facility] CHEM PANEL Potassium Lvl 3.7 meq/L 3.5 - 5.1 10/14/2016 [facility] CHEM PANEL Glucose Lvl 104 mg/dL 70 - 99 10/14/2016 [facility] CHEM PANEL BUN 12 mg/dL 7 - 22 10/14/2016 [facility] CHEM PANEL Creatinine Lvl 0.81 mg/dL 0.50 - 1.40 10/14/2016 [facility] CHEM PANEL A/G Ratio 1.1 0.7 - 1.6 10/14/2016 [facility] CHEM PANEL Globulin 3.2 g/dL 2.7 - 4.2 10/14/2016 [facility] CHEM PANEL B/C Ratio 15 6 - 25 10/14/2016 [facility] CHEM PANEL AGAP 9.7 meq/L 10.0 - 20.0 10/14/2016 [facility] ENDOCRINOLOGY S Preg Negative *NA* (10/14/16 8:19 AM) Negative 10/14/2016 [facility] HEMATOLOGY MCV 87.2 fL 80.0 - 98.0 10/14/2016 [facility] HEMATOLOGY Hct 36.0 % 36.0 - 48.0 10/14/2016 [facility] Hgb 12.0 g/dL 12.0 - 16.0 10/14/2016 [facility] WBC 5.9 K/CMM 3.7 - 10.4 10/14/2016 [facility] HEMATOLOGY RBC 4.12 M/CMM 4.20 - 5.40 10/14/2016 [facility] MPV 7.8 fL 7.4 - 10.4 10/14/2016 [facility] Platelet 238 K/CMM 133 - 450 10/14/2016 [facility] RDW 15.0 % 11.5 - 14.5 10/14/2016 [facility] MCHC 33.5 g/dL 32.0 - 36.0 10/14/2016 [facility] MCH 29.2 pg 27.0 - 31.0 10/14/2016 [facility] Lymphocytes # 1.5 K/CMM 1.0 - 5.5 10/14/2016 [facility] HEMATOLOGY Segs-Bands # 3.9 K/CMM 1.5 - 8.1 10/14/2016 [facility] HEMATOLOGY Basophils 0.9 % 0.0 - 1.0 10/14/2016 [facility] HEMATOLOGY Monocytes # 0.4 K/CMM 0.0 - 0.8 10/14/2016 [facility] HEMATOLOGY Eosinophils # 0.1 K/CMM 0.0 - 0.5 10/14/2016 [facility] Basophils # 0.1 K/CMM 0.0 - 0.2 10/14/2016 [facility] HEMATOLOGY Segs 65.6 % 45.0 - 75.0 10/14/2016 [facility] Lymphocytes 24.9 % 20.0 - 40.0 10/14/2016 [facility] HEMATOLOGY Eosinophils 2.4 % 0.0 - 4.0 10/14/2016 [facility] HEMATOLOGY Monocytes 6.2 % 2.0 - 12.0 10/14/2016 [facility] URINE AND STOOL UA Urobilinogen <=1.0 mg/dL 0.1 - 1.0 10/14/2016 [facility] URINE AND STOOL UA Turbidity Clear (10/14/16 8:19 AM) Clear 10/14/2016 [facility] URINE AND STOOL UA Color Yellow *NA* (10/14/16 8:19 AM) Yellow 10/14/2016 [facility] URINE AND STOOL UA Ketones Negative mg/dL Negative mg/dL 10/14/2016 [facility] URINE AND STOOL UA Bili Negative *NA* (10/14/16 8:19 AM) Negative 10/14/2016 [facility] URINE AND STOOL UA Leuk Est Small *ABN* (10/14/16 8:19 AM) Negative 10/14/2016 [facility] URINE AND STOOL UA Nitrite Positive *ABN* (10/14/16 8:19 AM) Negative 10/14/2016 [facility] URINE AND STOOL UA Blood Small *ABN* (10/14/16 8:19 AM) Negative 10/14/2016 [facility] URINE AND STOOL UA Spec Grav 1.013 <=1.030 10/14/2016 [facility] URINE AND STOOL UA pH 5.0 5.0 - 8.0 10/14/2016 [facility] URINE AND STOOL UA Glucose Negative mg/dL Negative mg/dL 10/14/2016 [facility] URINE AND STOOL UA Protein Negative mg/dL Negative mg/dL 10/14/2016 [facility] URINE AND STOOL UA Sq Epi Moderate /LPF Few /LPF 10/14/2016 [facility] URINE AND STOOL UA WBC 7 /HPF 0 - 5 10/14/2016 [facility] URINE AND STOOL UA RBC 4 /HPF 0 - 2 10/14/2016 [facility] URINE AND STOOL UA Mucus Few /LPF None Seen /LPF 10/14/2016 [facility] URINE AND STOOL UA Bacteria Occasional /HPF None Seen /HPF 10/14/2016 [facility] URINE CHEM U Preg Negative (10/14/16 8:19 AM) Negative 10/14/2016 [facility] Abdomen/Pelvis wo IV contrast CT Abdomen/Pelvis wo IV contrast CT Patient Name: ANGELA ESPINOSA : 1975; Age: 40 years Female MR: [id number] Study: Abdomen/Pelvis wo IV contrast CT 10/14/2016 8:57 AM CDT Clinical Indication: Abdominal pain, acute, r/o kidney stone / pt RIGHT flank pain, pt states she has severe back pain that radiates to her lower rt side for a couple weeks - CT DLP 1116.38 mGy-cm CAM. COMPARISON: 01/25/2016. 06/10/2016. 02/11/2016. 01/25/2016. 04/29/2010. TECHNIQUE: Helical imaging was performed diaphragm through the symphysis with multiplanar reformations obtained without IV contrast. FINDINGS: LOWER CHEST: Bibasilar atelectasis. Small umbilical fat-containing hernia. ABDOMEN: No free air. LIVER: The superior liver is excluded from evaluation. BILIARY TREE: Normal. GALLBLADDER: Surgically absent. PANCREAS: Normal. SPLEEN: Normal. ADRENALS: Normal. KIDNEYS: No hydronephrosis is noted. There are at least 2 right-sided renal stones, the largest measures 3-4 mm, 197 Hounsfield units. There are at least 5 left-sided renal stones. Low-density left-sided renal lesion measuring 17.2 Hounsfield units, 7-8 mm appears similar to the prior exams. PELVIS: No ureterolithiasis. The bladder is normally distended. BOWEL: No small bowel obstruction. Underdistended right colon and proximal transverse colon with slight wall thickening. Normal appendix. PERITONEUM: No free intraperitoneal fluid. RETROPERITONEUM: No aortic aneurysm. MUSCULOSKELETAL: The skeleton is intact. IMPRESSION: 1. Changes in the right colon and transverse colon which may be due to underdistention. The possibility of inflammatory bowel disease, colitis is not entirely excluded. 2. Bilateral nephrolithiasis, no ureterolithiasis. 3. Postcholecystectomy. 4. Normal appendix. 5. Small umbilical fat-containing hernia. 6. Stable left lateral renal cortical lesion. SL: [id number] 10/14/2016 - - Read by: Bg Monge MD Dictated Date/time: 10/14/16 10:22 Electronically Signed by: Bg Monge MD 10/14/16 10:45 FINAL REPORT [facility] Chest/Abdomen/Pelvis w IV contrast CT Chest/Abdomen/Pelvis w IV contrast CT CT CHEST ABDOMEN PELVIS WITH CONTRAST: HISTORY: Acute chest and abdominal pain. TECHNIQUE: Multislice axial acquisitions of the chest, abdomen and pelvis were done with IV contrast. Enteric contrast was not administered. Sagittal and coronal reformatted images were also done. FINDINGS: There are no significant pulmonary or pleural abnormalities. There is mild subsegmental atelectasis in the posterior basilar segments of the lower lobes. There is no mediastinal mass or significant lymph node enlargement. There are no significant vascular abnormalities. The liver, spleen, pancreas, kidneys and adrenal glands show no acute abnormalities. Small calyceal stones in the kidneys are noted, unchanged from the CT on 06/10/2016. There is no evidence of ureteral calculus or hydronephrosis. There is no intra-abdominal mass or free fluid. A 7 mm cortical low-density lesion in lateral left kidney is unchanged. There is no intra- abdominal mass or free fluid. The gallbladder is been removed. There are no significant gastrointestinal tract abnormalities. The uterus has been been removed. There are no acute osseous abnormalities. IMPRESSION: No acute CT abnormalities in the chest, abdomen or pelvis. [id number] 10/07/2016 - - Read by: Vasiliy Gonzalez MD Dictated Date/time: 10/07/16 11:12 Electronically Signed by: Vasiliy Gonzalez MD 10/07/16 11:18 FINAL REPORT [facility] Chest 1view DX Chest 1view DX Chest 1view DX CLINICAL HISTORY:Chest pain - chest pain COMPARISON: 11/04/2015 FINDINGS: Limited AP portable study. SUPPORT DEVICES: none LUNGS: Lungs are reasonably well inflated. No consolidation or any significant effusion. No pneumothorax is evident. CARDIOVASCULAR: Cardiac silhouette size is within normal limits. No pulmonary edema. MEDIASTINUM/TRINA: Trachea is midline. No contour abnormality is noted. BONE AND SOFT TISSUES: No significant abnormality is evident. Multiple EKG leads and other wires project over the patient's chest. IMPRESSION: No acute abnormality is noted in the chest. : [id number] 10/07/2016 - - Read by: Jourdan De Leon MD Dictated Date/time: 10/07/16 08:47 Electronically Signed by: Jourdan De Leon MD 10/07/16 08:48 FINAL REPORT [facility] CHEM PANEL eGFR 78 mL/min/1.73m2 06/12/2016 Result Comment: The eGFR is calculated using the CKD-EPI formula. In most young, healthy individuals the eGFR will be >90 mL/min/1.73m2. The eGFR declines with age. An eGFR of 60-89 may be normal in some populations, particularly the elderly, for whom the CKD-EPI formula has not been extensively validated. Use of the eGFR is not recommended in the following populations: Individuals with unstable creatinine concentrations, including patients and those with serious co-morbid conditions. Patients with extremes in muscle mass or diet. The data above are obtained from the National Kidney Disease Education Program (NKDEP) which additionally recommends that when the eGFR is used in patients with extremes of body mass index for purposes of drug dosing, the eGFR should be multiplied by the estimated BMI. [facility] CHEM PANEL Bili Total 0.7 mg/dL 0.2 - 1.3 06/12/2016 [facility] CHEM PANEL Glucose Lvl 98 mg/dL 70 - 99 06/12/2016 [facility] CHEM PANEL Creatinine Lvl 0.93 mg/dL 0.50 - 1.40 06/12/2016 [facility] CHEM PANEL Sodium Lvl 137 meq/L 135 - 145 06/12/2016 [facility] CHEM PANEL BUN 15 mg/dL 7 - 22 06/12/2016 [facility] CHEM PANEL AST 15 unit/L 0 - 37 06/12/2016 [facility] CHEM PANEL Calcium Lvl 9.3 mg/dL 8.5 - 10.5 06/12/2016 [facility] CHEM PANEL CO2 24 meq/L 24 - 32 06/12/2016 [facility] CHEM PANEL Albumin Lvl 3.6 g/dL 3.5 - 5.0 06/12/2016 [facility] CHEM PANEL ALT 19 unit/L 0 - 65 06/12/2016 [facility] CHEM PANEL Alk Phos 65 unit/L 39 - 136 06/12/2016 [facility] CHEM PANEL Potassium Lvl 4.1 meq/L 3.5 - 5.1 06/12/2016 [facility] CHEM PANEL Total Protein 7.0 g/dL 6.4 - 8.4 06/12/2016 [facility] CHEM PANEL Chloride Lvl 105 meq/L 95 - 109 06/12/2016 [facility] CHEM PANEL A/G Ratio 1.1 0.7 - 1.6 06/12/2016 [facility] CHEM PANEL B/C Ratio 16 6 - 25 06/12/2016 [facility] CHEM PANEL Globulin 3.4 g/dL 2.7 - 4.2 06/12/2016 [facility] CHEM PANEL AGAP 12.1 meq/L 10.0 - 20.0 06/12/2016 [facility] CHEM PANEL Lipase Lvl 190 unit/L 73 - 393 06/12/2016 [facility] HEMATOLOGY MPV 8.1 fL 7.4 - 10.4 06/12/2016 [facility] HEMATOLOGY Platelet 242 K/CMM 133 - 450 06/12/2016 [facility] HEMATOLOGY MCHC 34.3 g/dL 32.0 - 36.0 06/12/2016 [facility] HEMATOLOGY RDW 14.2 % 11.5 - 14.5 06/12/2016 [facility] MCH 29.2 pg 27.0 - 31.0 06/12/2016 [facility] HEMATOLOGY Hct 40.3 % 36.0 - 48.0 06/12/2016 [facility] MCV 85.3 fL 80.0 - 98.0 06/12/2016 [facility] HEMATOLOGY WBC 10.3 K/CMM 3.7 - 10.4 06/12/2016 [facility] HEMATOLOGY RBC 4.73 M/CMM 4.20 - 5.40 06/12/2016 [facility] Hgb 13.8 g/dL 12.0 - 16.0 06/12/2016 [facility] HEMATOLOGY Lymphocytes # 1.3 K/CMM 1.0 - 5.5 06/12/2016 [facility] HEMATOLOGY Basophils # 0.1 K/CMM 0.0 - 0.2 06/12/2016 [facility] HEMATOLOGY Eosinophils # 0.1 K/CMM 0.0 - 0.5 06/12/2016 [facility] HEMATOLOGY Monocytes # 0.3 K/CMM 0.0 - 0.8 06/12/2016 [facility] Basophils 0.7 % 0.0 - 1.0 06/12/2016 [facility] HEMATOLOGY Segs-Bands # 8.5 K/CMM 1.5 - 8.1 06/12/2016 [facility] Eosinophils 1.3 % 0.0 - 4.0 06/12/2016 [facility] HEMATOLOGY Segs 82.5 % 45.0 - 75.0 06/12/2016 [facility] Lymphocytes 12.4 % 20.0 - 40.0 06/12/2016 [facility] HEMATOLOGY Monocytes 3.1 % 2.0 - 12.0 06/12/2016 [facility] URINE AND STOOL UA Color Ltyellow 06/12/2016 [facility] URINE AND STOOL UA Urobilinogen <=1.0 mg/dL 0.1 - 1.0 06/12/2016 [facility] URINE AND STOOL UA RBC 1 /HPF 0 - 2 06/12/2016 [facility] URINE AND STOOL UA Bacteria Occasional /HPF None Seen /HPF 06/12/2016 [facility] URINE AND STOOL UA Sq Epi Few /LPF Few /LPF 06/12/2016 [facility] URINE AND STOOL UA WBC 3 /HPF 0 - 5 06/12/2016 [facility] URINE AND STOOL UA Ketones Negative mg/dL Negative mg/dL 06/12/2016 [facility] URINE AND STOOL UA Bili Negative *NA* (06/12/16 8:16 AM) Negative 06/12/2016 [facility] URINE AND STOOL UA Leuk Est Trace *ABN* (06/12/16 8:16 AM) Negative 06/12/2016 [facility] URINE AND STOOL UA Blood Negative (06/12/16 8:16 AM) Negative 06/12/2016 [facility] URINE AND STOOL UA Nitrite Negative (06/12/16 8:16 AM) Negative 06/12/2016 [facility] URINE AND STOOL UA Turbidity Clear (06/12/16 8:16 AM) Clear 06/12/2016 [facility] URINE AND STOOL UA pH 6.0 5.0 - 8.0 06/12/2016 [facility] URINE AND STOOL UA Spec Grav 1.012 <=1.030 06/12/2016 [facility] URINE AND STOOL UA Glucose Negative mg/dL Negative mg/dL 06/12/2016 [facility] URINE AND STOOL UA Protein Negative mg/dL Negative mg/dL 06/12/2016 [facility] URINE CHEM U Preg Negative (06/12/16 8:16 AM) Negative 06/12/2016 [facility] CHEM PANEL eGFR 105 mL/min/1.73m2 06/10/2016 Result Comment: The eGFR is calculated using the CKD-EPI formula. In most young, healthy individuals the eGFR will be >90 mL/min/1.73m2. The eGFR declines with age. An eGFR of 60-89 may be normal in some populations, particularly the elderly, for whom the CKD-EPI formula has not been extensively validated. Use of the eGFR is not recommended in the following populations: Individuals with unstable creatinine concentrations, including patients and those with serious co-morbid conditions. Patients with extremes in muscle mass or diet. The data above are obtained from the National Kidney Disease Education Program (NKDEP) which additionally recommends that when the eGFR is used in patients with extremes of body mass index for purposes of drug dosing, the eGFR should be multiplied by the estimated BMI. [facility] CHEM PANEL Albumin Lvl 3.6 g/dL 3.5 - 5.0 06/10/2016 [facility] CHEM PANEL CO2 25 meq/L 24 - 32 06/10/2016 [facility] CHEM PANEL ALT 18 unit/L 0 - 65 06/10/2016 [facility] CHEM PANEL Calcium Lvl 9.1 mg/dL 8.5 - 10.5 06/10/2016 [facility] CHEM PANEL Total Protein 7.2 g/dL 6.4 - 8.4 06/10/2016 [facility] CHEM PANEL BUN 14 mg/dL 7 - 22 06/10/2016 [facility] CHEM PANEL Bili Total 0.2 mg/dL 0.2 - 1.3 06/10/2016 [facility] CHEM PANEL AST 10 unit/L 0 - 37 06/10/2016 [facility] CHEM PANEL Alk Phos 69 unit/L 39 - 136 06/10/2016 [facility] CHEM PANEL Potassium Lvl 4.1 meq/L 3.5 - 5.1 06/10/2016 [facility] CHEM PANEL Chloride Lvl 106 meq/L 95 - 109 06/10/2016 [facility] CHEM PANEL Creatinine Lvl 0.73 mg/dL 0.50 - 1.40 06/10/2016 [facility] CHEM PANEL Sodium Lvl 138 meq/L 135 - 145 06/10/2016 [facility] CHEM PANEL Glucose Lvl 86 mg/dL 70 - 99 06/10/2016 [facility] CHEM PANEL A/G Ratio 1.0 0.7 - 1.6 06/10/2016 [facility] CHEM PANEL B/C Ratio 19 6 - 25 06/10/2016 [facility] CHEM PANEL Globulin 3.6 g/dL 2.7 - 4.2 06/10/2016 [facility] CHEM PANEL AGAP 11.1 meq/L 10.0 - 20.0 06/10/2016 [facility] HEMATOLOGY Platelet 254 K/CMM 133 - 450 06/10/2016 [facility] HEMATOLOGY MPV 7.7 fL 7.4 - 10.4 06/10/2016 [facility] HEMATOLOGY RBC 4.63 M/CMM 4.20 - 5.40 06/10/2016 [facility] HEMATOLOGY Hgb 13.7 g/dL 12.0 - 16.0 06/10/2016 [facility] HEMATOLOGY WBC 8.9 K/CMM 3.7 - 10.4 06/10/2016 [facility] HEMATOLOGY RDW 14.8 % 11.5 - 14.5 06/10/2016 [facility] HEMATOLOGY MCHC 34.7 g/dL 32.0 - 36.0 06/10/2016 [facility] HEMATOLOGY MCH 29.7 pg 27.0 - 31.0 06/10/2016 [facility] HEMATOLOGY Hct 39.6 % 36.0 - 48.0 06/10/2016 [facility] HEMATOLOGY MCV 85.6 fL 80.0 - 98.0 06/10/2016 [facility] HEMATOLOGY Eosinophils # 0.1 K/CMM 0.0 - 0.5 06/10/2016 [facility] HEMATOLOGY Monocytes # 0.6 K/CMM 0.0 - 0.8 06/10/2016 [facility] HEMATOLOGY Lymphocytes # 1.9 K/CMM 1.0 - 5.5 06/10/2016 [facility] HEMATOLOGY Basophils # 0.1 K/CMM 0.0 - 0.2 06/10/2016 [facility] HEMATOLOGY Basophils 0.9 % 0.0 - 1.0 06/10/2016 [facility] HEMATOLOGY Segs-Bands # 6.2 K/CMM 1.5 - 8.1 06/10/2016 [facility] HEMATOLOGY Lymphocytes 21.9 % 20.0 - 40.0 06/10/2016 [facility] HEMATOLOGY Monocytes 6.2 % 2.0 - 12.0 06/10/2016 [facility] HEMATOLOGY Eosinophils 1.1 % 0.0 - 4.0 06/10/2016 [facility] HEMATOLOGY Segs 69.9 % 45.0 - 75.0 06/10/2016 [facility] URINE AND STOOL UA Color Ltyellow 06/10/2016 [facility] URINE AND STOOL UA Urobilinogen <=1.0 mg/dL 0.1 - 1.0 06/10/2016 [facility] URINE AND STOOL UA RBC null 0 - 2 06/10/2016 [facility] URINE AND STOOL UA Bacteria Few /HPF None Seen /HPF 06/10/2016 [facility] URINE AND STOOL UA Leuk Est Negative (06/10/16 2:22 PM) Negative 06/10/2016 [facility] URINE AND STOOL UA Blood Negative (06/10/16 2:22 PM) Negative 06/10/2016 [facility] URINE AND STOOL UA Ketones Negative mg/dL Negative mg/dL 06/10/2016 [facility] URINE AND STOOL UA Glucose Negative mg/dL Negative mg/dL 06/10/2016 [facility] URINE AND STOOL UA Bili Negative *NA* (06/10/16 2:22 PM) Negative 06/10/2016 [facility] URINE AND STOOL UA Sq Epi Occasional /LPF Few /LPF 06/10/2016 [facility] URINE AND STOOL UA Nitrite Positive *ABN* (1/10/17 2:22 PM) Negative 06/10/2016 [facility] URINE AND STOOL UA WBC 4 /HPF 0 - 5 06/10/2016 [facility] URINE AND STOOL UA Spec Grav 1.009 <=1.030 06/10/2016 [facility] URINE AND STOOL UA Protein Negative mg/dL Negative mg/dL 06/10/2016 [facility] URINE AND STOOL UA Turbidity Clear (06/10/16 2:22 PM) Clear 06/10/2016 [facility] URINE AND STOOL UA pH 6.0 5.0 - 8.0 06/10/2016 [facility] URINE CHEM U Preg Negative (06/10/16 2:22 PM) Negative 06/10/2016 [facility] Abdomen/Pelvis wo IV contrast CT Abdomen/Pelvis wo IV contrast CT Study: Abdomen/Pelvis wo IV contrast CT Clinical Indication: Back pain; Pt states right flank pain with N/V since last night. Pt states hx of kidney stones; kidney stone protocol Comparison: CT abdomen and pelvis from 02/11/2016 TECHNIQUE: Multiple axial CT images of the abdomen and pelvis were acquired without the administration of intravenous contrast. Sagittal and coronal reformatted images were performed. CT Radiation Dose DLP 878.65 mGy-cm FINDINGS: The visualized lung bases are clear bilaterally. Bilateral kidneys are without hydronephrosis or perinephric stranding. Calyceal stones varying in size from 1 mm to 2 mm throughout the bilateral kidneys are seen. Left renal simple and hemorrhagic cysts are noted. No obstructing ureteral stones are seen. Urinary bladder is well-distended. Patient is status post hysterectomy. Liver, pancreas, spleen, adrenal glands are within the normal limits imposed by lack of intravenous contrast. Changes of prior cholecystectomy are seen. The visualized hollow viscera and appendix are normal in appearance. No intraperitoneal free air, free fluid, or pathologic adenopathy is seen. 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 IMPRESSION: 1. No acute intra-abdominal/pelvic abnormality. 2. Nonobstructive bilateral nephrolithiasis. SL: GUNJAN 06/10/2016 - - Read by: Mynor Myers MD Dictated Date/time: 06/10/16 19:47 Electronically Signed by: Mynor Myers MD 06/10/16 19:50 FINAL REPORT [facility] CHEM PANEL Phosphorus 2.2 mg/dL 2.5 - 4.5 02/12/2016 [facility] CHEM PANEL A/G Ratio 1.1 0.7 - 1.6 02/12/2016 [facility] CHEM PANEL AGAP 9.2 meq/L 10.0 - 20.0 02/12/2016 [facility] CHEM PANEL Globulin 2.6 g/dL 2.7 - 4.2 02/12/2016 [facility] CHEM PANEL B/C Ratio 19 6 - 25 02/12/2016 [facility] CHEM PANEL eGFR 105 mL/min/1.73m2 02/12/2016 Result Comment: The eGFR is calculated using the CKD-EPI formula. In most young, healthy individuals the eGFR will be >90 mL/min/1.73m2. The eGFR declines with age. An eGFR of 60-89 may be normal in some populations, particularly the elderly, for whom the CKD-EPI formula has not been extensively validated. Use of the eGFR is not recommended in the following populations: Individuals with unstable creatinine concentrations, including patients and those with serious co-morbid conditions. Patients with extremes in muscle mass or diet. The data above are obtained from the National Kidney Disease Education Program (NKDEP) which additionally recommends that when the eGFR is used in patients with extremes of body mass index for purposes of drug dosing, the eGFR should be multiplied by the estimated BMI. [facility] CHEM PANEL ALT 14 unit/L 0 - 65 02/12/2016 [facility] CHEM PANEL Albumin Lvl 2.8 g/dL 3.5 - 5.0 02/12/2016 [facility] CHEM PANEL Total Protein 5.4 g/dL 6.4 - 8.4 02/12/2016 [facility] CHEM PANEL Bili Total 0.5 mg/dL 0.2 - 1.3 02/12/2016 [facility] CHEM PANEL Alk Phos 60 unit/L 39 - 136 02/12/2016 [facility] CHEM PANEL AST 11 unit/L 0 - 37 02/12/2016 [facility] CHEM PANEL Chloride Lvl 112 meq/L 95 - 109 02/12/2016 [facility] CHEM PANEL CO2 24 meq/L 24 - 32 02/12/2016 [facility] CHEM PANEL Calcium Lvl 7.2 mg/dL 8.5 - 10.5 02/12/2016 [facility] CHEM PANEL BUN 14 mg/dL 7 - 22 02/12/2016 [facility] CHEM PANEL Glucose Lvl 92 mg/dL 70 - 99 02/12/2016 [facility] CHEM PANEL Potassium Lvl 4.2 meq/L 3.5 - 5.1 02/12/2016 [facility] CHEM PANEL Sodium Lvl 141 meq/L 135 - 145 02/12/2016 [facility] CHEM PANEL Creatinine Lvl 0.73 mg/dL 0.50 - 1.40 02/12/2016 [facility] CHEM PANEL Magnesium Lvl 2.1 mg/dL 1.8 - 2.4 02/12/2016 [facility] HEMATOLOGY Lymphocytes # 1.8 K/CMM 1.0 - 5.5 02/12/2016 [facility] HEMATOLOGY Segs-Bands # 3.8 K/CMM 1.5 - 8.1 02/12/2016 [facility] HEMATOLOGY Eosinophils # 0.6 K/CMM 0.0 - 0.5 02/12/2016 [facility] HEMATOLOGY Basophils # 0.1 K/CMM 0.0 - 0.2 02/12/2016 [facility] HEMATOLOGY Monocytes # 0.4 K/CMM 0.0 - 0.8 02/12/2016 [facility] HEMATOLOGY Basophils 1.1 % 0.0 - 1.0 02/12/2016 [facility] HEMATOLOGY Eosinophils 9.3 % 0.0 - 4.0 02/12/2016 [facility] HEMATOLOGY Monocytes 5.9 % 2.0 - 12.0 02/12/2016 [facility] HEMATOLOGY Lymphocytes 27.3 % 20.0 - 40.0 02/12/2016 [facility] HEMATOLOGY Segs 56.4 % 45.0 - 75.0 02/12/2016 [facility] HEMATOLOGY Platelet 256 K/CMM 133 - 450 02/12/2016 [facility] MPV 7.7 fL 7.4 - 10.4 02/12/2016 [facility] HEMATOLOGY RBC 4.00 M/CMM 4.20 - 5.40 02/12/2016 [facility] WBC 6.7 K/CMM 3.7 - 10.4 02/12/2016 [facility] HEMATOLOGY RDW 13.9 % 11.5 - 14.5 02/12/2016 [facility] MCH 28.6 pg 27.0 - 31.0 02/12/2016 [facility] MCHC 33.6 g/dL 32.0 - 36.0 02/12/2016 [facility] MCV 85.3 fL 80.0 - 98.0 02/12/2016 [facility] Hgb 11.5 g/dL 12.0 - 16.0 02/12/2016 [facility] HEMATOLOGY Hct 34.1 % 36.0 - 48.0 02/12/2016 [facility] URINE AND STOOL UA Color Shania 02/11/2016 [facility] URINE AND STOOL UA Leuk Est Moderate *ABN* (02/11/16 4:53 PM) Negative 02/11/2016 [facility] URINE AND STOOL UA WBC 146 /HPF 0 - 5 02/11/2016 [facility] URINE AND STOOL UA Sq Epi Occasional /LPF Few /LPF 02/11/2016 [facility] URINE AND STOOL UA Bacteria Occasional /HPF None Seen /HPF 02/11/2016 [facility] URINE AND STOOL UA RBC null 0 - 2 02/11/2016 [facility] URINE AND STOOL UA Bili Negative *NA* (02/11/16 4:53 PM) Negative 02/11/2016 [facility] URINE AND STOOL UA Urobilinogen 4.0 mg/dL 0.1 - 1.0 02/11/2016 [facility] URINE AND STOOL UA Blood Large *ABN* (02/11/16 4:53 PM) Negative 02/11/2016 [facility] URINE AND STOOL UA Nitrite Positive *ABN* (02/11/16 4:53 PM) Negative 02/11/2016 [facility] URINE AND STOOL UA Spec Grav 1.015 <=1.030 02/11/2016 [facility] URINE AND STOOL UA Protein 30 mg/dL Negative mg/dL 02/11/2016 [facility] URINE AND STOOL UA pH 5.0 5.0 - 8.0 02/11/2016 [facility] URINE AND STOOL UA Ketones Negative mg/dL Negative mg/dL 02/11/2016 [facility] URINE AND STOOL UA Glucose Negative mg/dL Negative mg/dL 02/11/2016 [facility] URINE AND STOOL UA Turbidity Clear (02/11/16 4:53 PM) Clear 02/11/2016 [facility] CHEM PANEL Globulin 2.6 g/dL 2.7 - 4.2 02/11/2016 [facility] CHEM PANEL B/C Ratio 24 6 - 25 02/11/2016 [facility] CHEM PANEL A/G Ratio 1.3 0.7 - 1.6 02/11/2016 [facility] CHEM PANEL AGAP 11.3 meq/L 10.0 - 20.0 02/11/2016 [facility] CHEM PANEL eGFR 80 mL/min/1.73m2 02/11/2016 Result Comment: The eGFR is calculated using the CKD-EPI formula. In most young, healthy individuals the eGFR will be >90 mL/min/1.73m2. The eGFR declines with age. An eGFR of 60-89 may be normal in some populations, particularly the elderly, for whom the CKD-EPI formula has not been extensively validated. Use of the eGFR is not recommended in the following populations: Individuals with unstable creatinine concentrations, including patients and those with serious co-morbid conditions. Patients with extremes in muscle mass or diet. The data above are obtained from the National Kidney Disease Education Program (NKDEP) which additionally recommends that when the eGFR is used in patients with extremes of body mass index for purposes of drug dosing, the eGFR should be multiplied by the estimated BMI. [facility] CHEM PANEL Bili Total 0.7 mg/dL 0.2 - 1.3 02/11/2016 [facility] CHEM PANEL Albumin Lvl 3.5 g/dL 3.5 - 5.0 02/11/2016 [facility] CHEM PANEL AST 10 unit/L 0 - 37 02/11/2016 [facility] CHEM PANEL ALT 19 unit/L 0 - 65 02/11/2016 [facility] CHEM PANEL Total Protein 6.1 g/dL 6.4 - 8.4 02/11/2016 [facility] CHEM PANEL Alk Phos 66 unit/L 39 - 136 02/11/2016 [facility] CHEM PANEL BUN 22 mg/dL 7 - 22 02/11/2016 [facility] CHEM PANEL Creatinine Lvl 0.92 mg/dL 0.50 - 1.40 02/11/2016 [facility] CHEM PANEL Calcium Lvl 8.1 mg/dL 8.5 - 10.5 02/11/2016 [facility] CHEM PANEL Potassium Lvl 4.3 meq/L 3.5 - 5.1 02/11/2016 [facility] CHEM PANEL Sodium Lvl 139 meq/L 135 - 145 02/11/2016 [facility] CHEM PANEL CO2 24 meq/L 24 - 32 02/11/2016 [facility] CHEM PANEL Chloride Lvl 108 meq/L 95 - 109 02/11/2016 [facility] CHEM PANEL Glucose Lvl 99 mg/dL 70 - 99 02/11/2016 [facility] CHEM PANEL Amylase Lvl 62 unit/L 25 - 115 02/11/2016 [facility] CHEM PANEL Lipase Lvl 108 unit/L 73 - 393 02/11/2016 [facility] HEMATOLOGY RBC 4.36 M/CMM 4.20 - 5.40 02/11/2016 [facility] HEMATOLOGY WBC 8.7 K/CMM 3.7 - 10.4 02/11/2016 [facility] HEMATOLOGY Hct 37.5 % 36.0 - 48.0 02/11/2016 [facility] HEMATOLOGY MCV 86.0 fL 80.0 - 98.0 02/11/2016 [facility] MCH 28.1 pg 27.0 - 31.0 02/11/2016 [facility] MCHC 32.7 g/dL 32.0 - 36.0 02/11/2016 [facility] HEMATOLOGY Platelet 261 K/CMM 133 - 450 02/11/2016 [facility] HEMATOLOGY RDW 14.1 % 11.5 - 14.5 02/11/2016 [facility] MPV 7.8 fL 7.4 - 10.4 02/11/2016 [facility] Hgb 12.2 g/dL 12.0 - 16.0 02/11/2016 [facility] HEMATOLOGY Eosinophils 8.2 % 0.0 - 4.0 02/11/2016 [facility] Monocytes 4.3 % 2.0 - 12.0 02/11/2016 [facility] HEMATOLOGY Basophils 0.6 % 0.0 - 1.0 02/11/2016 [facility] HEMATOLOGY Segs-Bands # 6.1 K/CMM 1.5 - 8.1 02/11/2016 [facility] HEMATOLOGY Lymphocytes # 1.4 K/CMM 1.0 - 5.5 02/11/2016 [facility] HEMATOLOGY Segs 70.7 % 45.0 - 75.0 02/11/2016 [facility] Lymphocytes 16.2 % 20.0 - 40.0 02/11/2016 [facility] Monocytes # 0.4 K/CMM 0.0 - 0.8 02/11/2016 [facility] HEMATOLOGY Eosinophils # 0.7 K/CMM 0.0 - 0.5 02/11/2016 [facility] URINE AND STOOL UA Urobilinogen <=1.0 mg/dL 0.1 - 1.0 02/11/2016 [facility] URINE AND STOOL UA Color Ltyellow 02/11/2016 [facility] URINE AND STOOL UA Blood Large *ABN* (02/11/16 8:51 AM) Negative 02/11/2016 [facility] URINE AND STOOL UA Nitrite Negative (02/11/16 8:51 AM) Negative 02/11/2016 [facility] URINE AND STOOL UA Leuk Est Large *ABN* (02/11/16 8:51 AM) Negative 02/11/2016 [facility] URINE AND STOOL UA Sq Epi Few /LPF Few /LPF 02/11/2016 [facility] URINE AND STOOL UA WBC 37 /HPF 0 - 5 02/11/2016 [facility] URINE AND STOOL UA RBC null 0 - 2 02/11/2016 [facility] URINE AND STOOL UA Bacteria Occasional /HPF None Seen /HPF 02/11/2016 [facility] URINE AND STOOL UA Glucose Negative mg/dL Negative mg/dL 02/11/2016 [facility] URINE AND STOOL UA pH 5.0 5.0 - 8.0 02/11/2016 [facility] URINE AND STOOL UA Protein 30 mg/dL Negative mg/dL 02/11/2016 [facility] URINE AND STOOL UA Ketones Negative mg/dL Negative mg/dL 02/11/2016 [facility] URINE AND STOOL UA Bili Negative *NA* (02/11/16 8:51 AM) Negative 02/11/2016 [facility] URINE AND STOOL UA Turbidity Clear (02/11/16 8:51 AM) Clear 02/11/2016 [facility] URINE AND STOOL UA Spec Grav 1.011 <=1.030 02/11/2016 [facility] Renal Stone CT Renal Stone CT Clinical Indication: Patient has a urinary stent, now having hematuria abdominal pain and flank pain.; Comparison: CT of the abdomen and pelvis 01/25/2016 TECHNIQUE: Noncontrasted helical imaging was performed from the kidneys through the symphysis as a renal stone protocol. Axial and coronal reformations are available. CT Radiation Dose DLP: 1198 mGy-cm FINDINGS: This examination is limited for the evaluation of solid organs and vascular structures due to lack of intravenous contrast, which is standard for urinary calculus assessment CT. KIDNEYS: Punctate nonobstructing left renal calculi. A 0.5 cm round structure with increased density in the interpolar region of the left kidney (series 2 image 39) is likely a hyperdense cyst. Since the last scan there has been placement of a right-sided double-J ureteral stent. No hydronephrosis. There is a small amount of stranding along the right ureteral stent. There is a 4 mm right renal calculus as well as several punctate right renal calculi. Small amount of hyperdense material adjacent to the right ureteral stent near the UVJ may be a few small stone fragments. LOWER CHEST: The lung bases are clear. SOLID ORGANS: The visualized liver, spleen, pancreas, and adrenal glands are normal. Gallbladder is surgically absent. BOWEL: No acute bowel pathology. PERITONEUM: No free intraperitoneal fluid or air. Small fat-containing ventral hernias. RETROPERITONEUM: No adenopathy. Aorta is normal. PELVIS: No pelvic mass. The urinary bladder is normal. Patient has had a hysterectomy. MUSCULOSKELETAL: No acute osseous abnormalities. Several subcentimeter sclerotic densities in the vertebral bodies are unchanged and are likely bone islands. IMPRESSION: Several bilateral nonobstructing renal calculi which measure up to 4 mm on the right and 3 mm on the left. Since the CT from 01/25/16, there has been placement of a right ureteral stent with resolution of the right hydronephrosis seen on that scan. Small amount of nonspecific right periureteral fat stranding. SL: [id number] 02/11/2016 - - Read by: Vasiliy Hernandez MD Dictated Date/time: 02/11/16 09:13 Electronically Signed by: Vasiliy Hernandez MD 02/11/16 09:21 FINAL REPORT [facility] DRUG SCREEN UDS Note See Note (02/01/16 12:05 PM) 02/01/2016 [facility] DRUG SCREEN U Phencyc Scr Negative *NA* (02/01/16 12:05 PM) Negative 02/01/2016 [facility] DRUG SCREEN U Opiate Scr Positive *ABN* (02/01/16 12:05 PM) Negative 02/01/2016 [facility] DRUG SCREEN U Cannab Scr Negative *NA* (02/01/16 12:05 PM) Negative 02/01/2016 [facility] DRUG SCREEN U Amph Scr Negative *NA* (02/01/16 12:05 PM) Negative 02/01/2016 [facility] DRUG SCREEN U Elaine Scr Negative *NA* (02/01/16 12:05 PM) Negative 02/01/2016 [facility] DRUG SCREEN U Benzodia Scr Negative *NA* (02/01/16 12:05 PM) Negative 02/01/2016 [facility] DRUG SCREEN U Cocaine Scr Negative *NA* (02/01/16 12:05 PM) Negative 02/01/2016 [facility] ELECTROLYTES AGAP 9.6 meq/L 10.0 - 20.0 02/01/2016 [facility] ELECTROLYTES eGFR 90 mL/min/1.73m2 02/01/2016 Result Comment: The eGFR is calculated using the CKD-EPI formula. In most young, healthy individuals the eGFR will be >90 mL/min/1.73m2. The eGFR declines with age. An eGFR of 60-89 may be normal in some populations, particularly the elderly, for whom the CKD-EPI formula has not been extensively validated. Use of the eGFR is not recommended in the following populations: Individuals with unstable creatinine concentrations, including patients and those with serious co-morbid conditions. Patients with extremes in muscle mass or diet. The data above are obtained from the National Kidney Disease Education Program (NKDEP) which additionally recommends that when the eGFR is used in patients with extremes of body mass index for purposes of drug dosing, the eGFR should be multiplied by the estimated BMI. [facility] ELECTROLYTES Potassium Lvl 3.6 meq/L 3.5 - 5.1 02/01/2016 [facility] ELECTROLYTES CO2 28 meq/L 24 - 32 02/01/2016 [facility] ELECTROLYTES Chloride Lvl 107 meq/L 95 - 109 02/01/2016 [facility] ELECTROLYTES Calcium Lvl 8.5 mg/dL 8.5 - 10.5 02/01/2016 [facility] ELECTROLYTES Creatinine Lvl 0.83 mg/dL 0.50 - 1.40 02/01/2016 [facility] ELECTROLYTES Sodium Lvl 141 meq/L 135 - 145 02/01/2016 [facility] ELECTROLYTES BUN 13 mg/dL 7 - 22 02/01/2016 [facility] ELECTROLYTES Glucose Lvl 84 mg/dL 70 - 99 02/01/2016 [facility] HEMATOLOGY Eosinophils # 0.2 K/CMM 0.0 - 0.5 02/01/2016 [facility] HEMATOLOGY Monocytes # 0.5 K/CMM 0.0 - 0.8 02/01/2016 [facility] HEMATOLOGY Lymphocytes # 2.3 K/CMM 1.0 - 5.5 02/01/2016 [facility] HEMATOLOGY Eosinophils 1.7 % 0.0 - 4.0 02/01/2016 [facility] HEMATOLOGY Basophils 1.3 % 0.0 - 1.0 02/01/2016 [facility] HEMATOLOGY Segs-Bands # 6.8 K/CMM 1.5 - 8.1 02/01/2016 [facility] HEMATOLOGY Lymphocytes 23.1 % 20.0 - 40.0 02/01/2016 [facility] HEMATOLOGY Segs 69.1 % 45.0 - 75.0 02/01/2016 [facility] HEMATOLOGY Monocytes 4.8 % 2.0 - 12.0 02/01/2016 [facility] HEMATOLOGY Basophils # 0.1 K/CMM 0.0 - 0.2 02/01/2016 [facility] HEMATOLOGY MCH 28.3 pg 27.0 - 31.0 02/01/2016 [facility] MCHC 33.8 g/dL 32.0 - 36.0 02/01/2016 [facility] HEMATOLOGY MPV 6.9 fL 7.4 - 10.4 02/01/2016 [facility] HEMATOLOGY RDW 14.4 % 11.5 - 14.5 02/01/2016 [facility] HEMATOLOGY Platelet 264 K/CMM 133 - 450 02/01/2016 [facility] HEMATOLOGY MCV 83.8 fL 80.0 - 98.0 02/01/2016 [facility] HEMATOLOGY RBC 4.42 M/CMM 4.20 - 5.40 02/01/2016 [facility] HEMATOLOGY WBC 9.9 K/CMM 3.7 - 10.4 02/01/2016 [facility] HEMATOLOGY Hct 37.1 % 36.0 - 48.0 02/01/2016 [facility] HEMATOLOGY Hgb 12.5 g/dL 12.0 - 16.0 02/01/2016 [facility] URINE AND STOOL UA Urobilinogen <=1.0 mg/dL 0.1 - 1.0 02/01/2016 [facility] URINE AND STOOL UA Color Red 02/01/2016 [facility] URINE AND STOOL UA Leuk Est Moderate *ABN* (02/01/16 12:05 PM) Negative 02/01/2016 [facility] URINE AND STOOL UA WBC 128 /HPF 0 - 5 02/01/2016 [facility] URINE AND STOOL UA Sq Epi Few /LPF Few /LPF 02/01/2016 [facility] URINE AND STOOL UA RBC null 0 - 2 02/01/2016 [facility] URINE AND STOOL UA Glucose Negative mg/dL Negative mg/dL 02/01/2016 [facility] URINE AND STOOL UA Protein 100 mg/dL Negative mg/dL 02/01/2016 [facility] URINE AND STOOL UA Nitrite Negative (02/01/16 12:05 PM) Negative 02/01/2016 [facility] URINE AND STOOL UA Blood Large *ABN* (02/01/16 12:05 PM) Negative 02/01/2016 [facility] URINE AND STOOL UA Ketones Negative mg/dL Negative mg/dL 02/01/2016 [facility] URINE AND STOOL UA Bili Negative *NA* (02/01/16 12:05 PM) Negative 02/01/2016 [facility] URINE AND STOOL UA Spec Grav 1.016 <=1.030 02/01/2016 [facility] URINE AND STOOL UA pH 6.0 5.0 - 8.0 02/01/2016 [facility] URINE AND STOOL UA Turbidity Marked *ABN* (02/01/16 12:05 PM) Clear 02/01/2016 [facility] URINE CHEM U Preg Negative (02/01/16 12:05 PM) Negative 02/01/2016 [facility] Abdomen AP DX Abdomen AP DX Patient Name: ANGELA ESPINOSA : 1975; Age: 40 years y/o Female MR: [id number] * ABDOMEN, 1 view, portable HISTORY: Right ureteral calculi. Status post placement of right ureteral stent for right hydronephrosis. A computed tomography scan of the abdomen and pelvis of 01/25/2016 and an abdominal radiograph of 01/25/2016 were reviewed. TECHNIQUE: A portable supine radiograph of the abdomen was obtained. The upper portion of the abdomen was not included. IMPRESSION: 1. There is a right double-J ureteral stent which appears to be in good position. The upper coil is in the region of the renal pelvis and the lower coil is in the region of the bladder. 2. No urinary tract calculi are identified. 3. There is a moderate amount of fecal material within the colon (constipation). The gastrointestinal structures are otherwise unremarkable. 4. Prior imaging studies demonstrated surgical clips in the right upper quadrant consistent with a prior cholecystectomy. This is not visualized on this study. 5. The regional skeleton is unremarkable. SL: [id number] 02/01/2016 - - Read by: Romain Leavitt MD Dictated Date/time: 02/01/16 12:44 Electronically Signed by: Romain Leavitt MD 02/01/16 12:48 FINAL REPORT [facility] URINE AND STOOL UA Urobilinogen <=1.0 mg/dL 0.1 - 1.0 01/26/2016 [facility] URINE AND STOOL UA Color Ltyellow 01/26/2016 [facility] URINE AND STOOL UA Trans Epi 10 /LPF <=0 /LPF 01/26/2016 [facility] URINE AND STOOL UA Mucus Few /LPF None Seen /LPF 01/26/2016 [facility] URINE AND STOOL UA Bacteria Occasional /HPF None Seen /HPF 01/26/2016 [facility] URINE AND STOOL UA RBC 3 /HPF 0 - 2 01/26/2016 [facility] URINE AND STOOL UA WBC 28 /HPF 0 - 5 01/26/2016 [facility] URINE AND STOOL UA Sq Epi Occasional /LPF Few /LPF 01/26/2016 [facility] URINE AND STOOL UA Nitrite Negative (01/26/16 3:01 PM) Negative 01/26/2016 [facility] URINE AND STOOL UA Blood Small *ABN* (01/26/16 3:01 PM) Negative 01/26/2016 [facility] URINE AND STOOL UA Bili Negative *NA* (01/26/16 3:01 PM) Negative 01/26/2016 [facility] URINE AND STOOL UA Ketones Negative mg/dL Negative mg/dL 01/26/2016 [facility] URINE AND STOOL UA Leuk Est Large *ABN* (01/26/16 3:01 PM) Negative 01/26/2016 [facility] URINE AND STOOL UA Glucose Negative mg/dL Negative mg/dL 01/26/2016 [facility] URINE AND STOOL UA Protein Negative mg/dL Negative mg/dL 01/26/2016 [facility] URINE AND STOOL UA pH 6.0 5.0 - 8.0 01/26/2016 [facility] URINE AND STOOL UA Spec Grav 1.012 <=1.030 01/26/2016 [facility] URINE AND STOOL UA Turbidity Clear (01/26/16 3:01 PM) Clear 01/26/2016 [facility] ELECTROLYTES AGAP 7.6 meq/L 10.0 - 20.0 01/26/2016 [facility] ELECTROLYTES CO2 28 meq/L 24 - 32 01/26/2016 [facility] ELECTROLYTES Calcium Lvl 7.4 mg/dL 8.5 - 10.5 01/26/2016 [facility] ELECTROLYTES eGFR 102 mL/min/1.73m2 01/26/2016 Result Comment: The eGFR is calculated using the CKD-EPI formula. In most young, healthy individuals the eGFR will be >90 mL/min/1.73m2. The eGFR declines with age. An eGFR of 60-89 may be normal in some populations, particularly the elderly, for whom the CKD-EPI formula has not been extensively validated. Use of the eGFR is not recommended in the following populations: Individuals with unstable creatinine concentrations, including patients and those with serious co-morbid conditions. Patients with extremes in muscle mass or diet. The data above are obtained from the National Kidney Disease Education Program (NKDEP) which additionally recommends that when the eGFR is used in patients with extremes of body mass index for purposes of drug dosing, the eGFR should be multiplied by the estimated BMI. [facility] ELECTROLYTES Glucose Lvl 80 mg/dL 70 - 99 01/26/2016 [facility] ELECTROLYTES Chloride Lvl 110 meq/L 95 - 109 01/26/2016 [facility] ELECTROLYTES Potassium Lvl 3.6 meq/L 3.5 - 5.1 01/26/2016 [facility] ELECTROLYTES Creatinine Lvl 0.75 mg/dL 0.50 - 1.40 01/26/2016 [facility] ELECTROLYTES BUN 10 mg/dL 7 - 22 01/26/2016 [facility] ELECTROLYTES Sodium Lvl 142 meq/L 135 - 145 01/26/2016 [facility] Platelet 204 K/CMM 133 - 450 01/26/2016 [facility] RDW 14.2 % 11.5 - 14.5 01/26/2016 [facility] MPV 7.5 fL 7.4 - 10.4 01/26/2016 [facility] MCH 28.8 pg 27.0 - 31.0 01/26/2016 [facility] MCHC 34.0 g/dL 32.0 - 36.0 01/26/2016 [facility] MCV 84.8 fL 80.0 - 98.0 01/26/2016 [facility] Hct 33.7 % 36.0 - 48.0 01/26/2016 [facility] Hgb 11.5 g/dL 12.0 - 16.0 01/26/2016 [facility] RBC 3.97 M/CMM 4.20 - 5.40 01/26/2016 [facility] WBC 8.1 K/CMM 3.7 - 10.4 01/26/2016 [facility] Segs 76.9 % 45.0 - 75.0 01/26/2016 [facility] Monocytes 6.3 % 2.0 - 12.0 01/26/2016 [facility] Lymphocytes # 1.1 K/CMM 1.0 - 5.5 01/26/2016 [facility] Eosinophils 2.4 % 0.0 - 4.0 01/26/2016 [facility] Basophils 0.4 % 0.0 - 1.0 01/26/2016 [facility] Lymphocytes 14.0 % 20.0 - 40.0 01/26/2016 [facility] HEMATOLOGY Monocytes # 0.5 K/CMM 0.0 - 0.8 01/26/2016 [facility] HEMATOLOGY Eosinophils # 0.2 K/CMM 0.0 - 0.5 01/26/2016 [facility] HEMATOLOGY Segs-Bands # 6.3 K/CMM 1.5 - 8.1 01/26/2016 [facility] URINE AND STOOL UA Urobilinogen <=1.0 mg/dL 0.1 - 1.0 01/26/2016 [facility] URINE AND STOOL UA Bacteria Many /HPF None Seen /HPF 01/26/2016 [facility] URINE AND STOOL UA Mucus Few /LPF None Seen /LPF 01/26/2016 [facility] URINE AND STOOL UA RBC 6 /HPF 0 - 2 01/26/2016 [facility] URINE AND STOOL UA WBC 34 /HPF 0 - 5 01/26/2016 [facility] URINE AND STOOL UA Spec Grav 1.010 <=1.030 01/26/2016 [facility] URINE AND STOOL UA Color Yellow *NA* (01/25/16 7:35 PM) Yellow 01/26/2016 [facility] URINE AND STOOL UA pH 6.0 5.0 - 8.0 01/26/2016 [facility] URINE AND STOOL UA Turbidity Slight *ABN* (01/25/16 7:35 PM) Clear 01/26/2016 [facility] URINE AND STOOL UA Protein Negative mg/dL Negative mg/dL 01/26/2016 [facility] URINE AND STOOL UA Glucose Negative mg/dL Negative mg/dL 01/26/2016 [facility] URINE AND STOOL UA Ketones Negative mg/dL Negative mg/dL 01/26/2016 [facility] URINE AND STOOL UA Sq Epi Moderate /LPF Few /LPF 01/26/2016 [facility] URINE AND STOOL UA Leuk Est Large *ABN* (01/25/16 7:35 PM) Negative 01/26/2016 [facility] URINE AND STOOL UA Nitrite Positive *ABN* (01/25/16 7:35 PM) Negative 01/26/2016 [facility] URINE AND STOOL UA Blood Moderate *ABN* (01/25/16 7:35 PM) Negative 01/26/2016 [facility] URINE AND STOOL UA Bili Negative *NA* (01/25/16 7:35 PM) Negative 01/26/2016 [facility] URINE CHEM U Preg Negative (01/25/16 7:35 PM) Negative 01/26/2016 [facility] CHEM PANEL Lipase Lvl 115 unit/L 73 - 393 01/26/2016 [facility] ELECTROLYTES AGAP 9.3 meq/L 10.0 - 20.0 01/26/2016 [facility] ELECTROLYTES B/C Ratio 17 6 - 25 01/26/2016 [facility] ELECTROLYTES A/G Ratio 1.1 0.7 - 1.6 01/26/2016 [facility] ELECTROLYTES Globulin 3.1 g/dL 2.7 - 4.2 01/26/2016 [facility] ELECTROLYTES eGFR 112 mL/min/1.73m2 01/26/2016 Result Comment: The eGFR is calculated using the CKD-EPI formula. In most young, healthy individuals the eGFR will be >90 mL/min/1.73m2. The eGFR declines with age. An eGFR of 60-89 may be normal in some populations, particularly the elderly, for whom the CKD-EPI formula has not been extensively validated. Use of the eGFR is not recommended in the following populations: Individuals with unstable creatinine concentrations, including patients and those with serious co-morbid conditions. Patients with extremes in muscle mass or diet. The data above are obtained from the National Kidney Disease Education Program (NKDEP) which additionally recommends that when the eGFR is used in patients with extremes of body mass index for purposes of drug dosing, the eGFR should be multiplied by the estimated BMI. [facility] ELECTROLYTES BUN 11 mg/dL 7 - 22 01/26/2016 [facility] ELECTROLYTES Sodium Lvl 140 meq/L 135 - 145 01/26/2016 [facility] ELECTROLYTES Creatinine Lvl 0.66 mg/dL 0.50 - 1.40 01/26/2016 [facility] ELECTROLYTES Chloride Lvl 108 meq/L 95 - 109 01/26/2016 [facility] ELECTROLYTES Potassium Lvl 3.3 meq/L 3.5 - 5.1 01/26/2016 [facility] ELECTROLYTES Alk Phos 68 unit/L 39 - 136 01/26/2016 [facility] ELECTROLYTES AST 40 unit/L 0 - 37 01/26/2016 [facility] ELECTROLYTES Bili Total 0.3 mg/dL 0.2 - 1.3 01/26/2016 [facility] ELECTROLYTES Glucose Lvl 78 mg/dL 70 - 99 01/26/2016 [facility] ELECTROLYTES ALT 73 unit/L 0 - 65 01/26/2016 [facility] ELECTROLYTES Calcium Lvl 8.0 mg/dL 8.5 - 10.5 01/26/2016 [facility] ELECTROLYTES CO2 26 meq/L 24 - 32 01/26/2016 [facility] ELECTROLYTES Albumin Lvl 3.4 g/dL 3.5 - 5.0 01/26/2016 [facility] ELECTROLYTES Total Protein 6.5 g/dL 6.4 - 8.4 01/26/2016 [facility] HEMATOLOGY Lymphocytes 36.9 % 20.0 - 40.0 01/26/2016 [facility] HEMATOLOGY Basophils 0.7 % 0.0 - 1.0 01/26/2016 [facility] HEMATOLOGY Lymphocytes # 2.2 K/CMM 1.0 - 5.5 01/26/2016 [facility] HEMATOLOGY Monocytes # 0.4 K/CMM 0.0 - 0.8 01/26/2016 [facility] HEMATOLOGY Segs 51.8 % 45.0 - 75.0 01/26/2016 [facility] HEMATOLOGY Eosinophils 3.4 % 0.0 - 4.0 01/26/2016 [facility] Monocytes 7.2 % 2.0 - 12.0 01/26/2016 [facility] Segs-Bands # 3.2 K/CMM 1.5 - 8.1 01/26/2016 [facility] Eosinophils # 0.2 K/CMM 0.0 - 0.5 01/26/2016 [facility] MPV 7.4 fL 7.4 - 10.4 01/26/2016 [facility] RBC 4.12 M/CMM 4.20 - 5.40 01/26/2016 [facility] WBC 6.1 K/CMM 3.7 - 10.4 01/26/2016 [facility] Hgb 11.9 g/dL 12.0 - 16.0 01/26/2016 [facility] MCV 83.5 fL 80.0 - 98.0 01/26/2016 [facility] Hct 34.4 % 36.0 - 48.0 01/26/2016 [facility] Platelet 229 K/CMM 133 - 450 01/26/2016 [facility] RDW 14.8 % 11.5 - 14.5 01/26/2016 [facility] MCH 28.9 pg 27.0 - 31.0 01/26/2016 [facility] MCHC 34.6 g/dL 32.0 - 36.0 01/26/2016 [facility] Abdomen 2 views DX Abdomen 2 views DX EXAM: Abdomen 2 views DX DATE: 01/25/2016 6:45 PM CDT INDICATION: Abdominal pain, acute COMPARISON: 11/21/2014. IMPRESSION: Nonspecific bowel gas pattern is present. Contrast is present within the collecting system and bladder. Postoperative cholecystectomy. Abundance of stool within the colon. SL: [id number] 01/25/2016 - - Read by: Feliz Barrow MD Dictated Date/time: 01/25/16 21:18 Electronically Signed by: Feilz Barrow MD 01/25/16 21:18 FINAL REPORT [facility] Abdomen/Pelvis IV contrast only CT ED Abdomen/Pelvis IV contrast only CT CT ABDOMEN AND PELVIS WITH CONTRAST INDICATION: Upper abdominal pain, vomiting, hematuria COMPARISON: CT chest/abdomen/pelvis 11/04/2015 DISCUSSION: ABDOMEN: There is no consolidation of the visible lung bases. Cholecystectomy clips are in place. There are 2 right renal calculi, measuring as large as 5 mm. There are 4 left renal calculi, measuring as large as 3 mm. There is mild right hydroureteronephrosis, without significant perirenal stranding. Two calculi are visible at the distal right ureter, just proximal to the right ureterovesical junction, measuring 5 mm and 4 mm. The liver, spleen, pancreas, and adrenal glands appear normal. The stomach and bowel loops, including the appendix, are unremarkable. No free fluid or abnormal fluid collections are seen. No abdominal lymphadenopathy is identified. PELVIS: The uterus and ovaries are not seen, presumed absent. Bladder is unremarkable. No pelvic mass or lymphadenopathy are identified. BONES: No acute bony abnormalities are seen. IMPRESSION: Bilateral nephrolithiasis. There are 2 calculi at the distal right ureter, measuring as large as 5 mm, associated with mild right hydroureteronephrosis. SL:16 01/25/2016 - - Read by: Hesham Dodd MD Dictated Date/time: 01/25/16 20:54 Electronically Signed by: Hesham Dodd MD 01/25/16 21:02 FINAL REPORT [facility] CHEM PANEL Phosphorus 2.2 mg/dL 2.5 - 4.5 11/05/2015 [facility] CHEM PANEL Magnesium Lvl 1.8 mg/dL 1.8 - 2.4 11/05/2015 [facility] CHEM PANEL eGFR 82 mL/min/1.73m2 11/05/2015 Result Comment: The eGFR is calculated using the CKD-EPI formula. In most young, healthy individuals the eGFR will be >90 mL/min/1.73m2. The eGFR declines with age. An eGFR of 60-89 may be normal in some populations, particularly the elderly, for whom the CKD-EPI formula has not been extensively validated. Use of the eGFR is not recommended in the following populations: Individuals with unstable creatinine concentrations, including patients and those with serious co-morbid conditions. Patients with extremes in muscle mass or diet. The data above are obtained from the National Kidney Disease Education Program (NKDEP) which additionally recommends that when the eGFR is used in patients with extremes of body mass index for purposes of drug dosing, the eGFR should be multiplied by the estimated BMI. [facility] CHEM PANEL BUN 7 mg/dL 7 - 22 11/05/2015 [facility] CHEM PANEL Potassium Lvl 3.4 meq/L 3.5 - 5.1 11/05/2015 [facility] CHEM PANEL Sodium Lvl 140 meq/L 135 - 145 11/05/2015 [facility] CHEM PANEL Glucose Lvl 93 mg/dL 70 - 99 11/05/2015 [facility] CHEM PANEL Creatinine Lvl 0.90 mg/dL 0.50 - 1.40 11/05/2015 [facility] CHEM PANEL Alk Phos 157 unit/L 39 - 136 11/05/2015 [facility] CHEM PANEL Bili Total 1.2 mg/dL 0.2 - 1.3 11/05/2015 [facility] CHEM PANEL CO2 23 meq/L 24 - 32 11/05/2015 [facility] CHEM PANEL Chloride Lvl 109 meq/L 95 - 109 11/05/2015 [facility] CHEM PANEL AGAP 11.4 meq/L 10.0 - 20.0 11/05/2015 [facility] CHEM PANEL Calcium Lvl 8.1 mg/dL 8.5 - 10.5 11/05/2015 [facility] CHEM PANEL B/C Ratio 8 6 - 25 11/05/2015 [facility] CHEM PANEL Albumin Lvl 2.8 g/dL 3.5 - 5.0 11/05/2015 [facility] CHEM PANEL ALT 96 unit/L 0 - 65 11/05/2015 [facility] CHEM PANEL Globulin 2.6 g/dL 2.0 - 4.0 11/05/2015 [facility] CHEM PANEL Total Protein 5.4 g/dL 6.4 - 8.4 11/05/2015 [facility] CHEM PANEL A/G Ratio 1.1 0.7 - 1.6 11/05/2015 [facility] CHEM PANEL AST 100 unit/L 0 - 37 11/05/2015 [facility] HEMATOLOGY MPV 8.3 fL 7.4 - 10.4 11/05/2015 [facility] HEMATOLOGY RBC 4.46 M/CMM 4.20 - 5.40 11/05/2015 [facility] HEMATOLOGY Hgb 12.6 g/dL 12.0 - 16.0 11/05/2015 [facility] HEMATOLOGY WBC 9.6 K/CMM 3.7 - 10.4 11/05/2015 [facility] HEMATOLOGY Hct 38.1 % 36.0 - 48.0 11/05/2015 [facility] HEMATOLOGY MCV 85.4 fL 80.0 - 98.0 11/05/2015 [facility] HEMATOLOGY Platelet 135 K/CMM 133 - 450 11/05/2015 [facility] HEMATOLOGY RDW 14.3 % 11.5 - 14.5 11/05/2015 [facility] MCHC 33.0 g/dL 32.0 - 36.0 11/05/2015 [facility] MCH 28.2 pg 27.0 - 31.0 11/05/2015 [facility] HEMATOLOGY Monocytes # 0.4 K/CMM 0.0 - 0.8 11/05/2015 [facility] HEMATOLOGY Lymphocytes # 0.5 K/CMM 1.0 - 5.5 11/05/2015 [facility] HEMATOLOGY Segs-Bands # 8.7 K/CMM 1.5 - 8.1 11/05/2015 [facility] HEMATOLOGY Basophils 0.2 % 0.0 - 1.0 11/05/2015 [facility] HEMATOLOGY Eosinophils 0.3 % 0.0 - 4.0 11/05/2015 [facility] HEMATOLOGY Monocytes 4.3 % 2.0 - 12.0 11/05/2015 [facility] HEMATOLOGY Lymphocytes 5.3 % 20.0 - 40.0 11/05/2015 [facility] HEMATOLOGY Segs 89.9 % 45.0 - 75.0 11/05/2015 [facility] CARDIAC ENZYMES Troponin-I null 0.00 - 0.40 11/05/2015 [facility] CARDIAC ENZYMES Total CK 45 unit/L 12 - 191 11/05/2015 [facility] CARDIAC ENZYMES Troponin-I null 0.00 - 0.40 11/04/2015 [facility] CARDIAC ENZYMES Total CK 46 unit/L 12 - 191 11/04/2015 [facility] DRUG SCREEN UDS Note See Note (11/04/15 1:06 PM) 11/04/2015 [facility] DRUG SCREEN U Opiate Scr Positive *ABN* (11/04/15 1:06 PM) Negative 11/04/2015 [facility] DRUG SCREEN U Cannab Scr Negative *NA* (11/04/15 1:06 PM) Negative 11/04/2015 [facility] DRUG SCREEN U Phencyc Scr Negative *NA* (11/04/15 1:06 PM) Negative 11/04/2015 [facility] DRUG SCREEN U Cocaine Scr Positive *ABN* (11/04/15 1:06 PM) Negative 11/04/2015 [facility] DRUG SCREEN U Benzodia Scr Negative *NA* (11/04/15 1:06 PM) Negative 11/04/2015 [facility] DRUG SCREEN U Elaine Scr Negative *NA* (11/04/15 1:06 PM) Negative 11/04/2015 [facility] DRUG SCREEN U Amph Scr Negative *NA* (11/04/15 1:06 PM) Negative 11/04/2015 [facility] URINE AND STOOL UA Ketones 80 mg/dL Negative mg/dL 11/04/2015 [facility] URINE AND STOOL UA Spec Grav 1.008 <=1.030 11/04/2015 [facility] URINE AND STOOL UA Glucose Negative mg/dL Negative mg/dL 11/04/2015 [facility] URINE AND STOOL UA pH 7.0 5.0 - 8.0 11/04/2015 [facility] URINE AND STOOL UA Protein 30 mg/dL Negative mg/dL 11/04/2015 [facility] URINE AND STOOL UA Hyal Cast 2 /LPF 0 - 2 11/04/2015 [facility] URINE AND STOOL UA RBC 5 /HPF 0 - 2 11/04/2015 [facility] URINE AND STOOL UA WBC 145 /HPF 0 - 5 11/04/2015 [facility] URINE AND STOOL UA Bacteria Moderate /HPF None Seen /HPF 11/04/2015 [facility] URINE AND STOOL UA Color Yellow *NA* (11/04/15 1:06 PM) Yellow 11/04/2015 [facility] URINE AND STOOL UA Turbidity Slight *ABN* (11/04/15 1:06 PM) Clear 11/04/2015 [facility] URINE AND STOOL UA Sq Epi Few /LPF Few /LPF 11/04/2015 [facility] URINE AND STOOL UA Leuk Est Large *ABN* (11/04/15 1:06 PM) Negative 11/04/2015 [facility] URINE AND STOOL UA Nitrite Negative (11/04/15 1:06 PM) Negative 11/04/2015 [facility] URINE AND STOOL UA Bili Negative *NA* (11/04/15 1:06 PM) Negative 11/04/2015 [facility] URINE AND STOOL UA Blood Small *ABN* (11/04/15 1:06 PM) Negative 11/04/2015 [facility] URINE AND STOOL UA Urobilinogen <=1.0 mg/dL 0.1 - 1.0 11/04/2015 [facility] CARDIAC ENZYMES CK MB Index null 0.0 - 2.5 11/04/2015 [facility] CARDIAC ENZYMES Total CK 42 unit/L 12 - 191 11/04/2015 [facility] CARDIAC ENZYMES CK MB null 0.5 - 3.6 11/04/2015 [facility] CARDIAC ENZYMES Troponin-I null 0.00 - 0.40 11/04/2015 [facility] CHEM PANEL Lipase Lvl 71 unit/L 73 - 393 11/04/2015 [facility] CHEM PANEL eGFR 74 mL/min/1.73m2 11/04/2015 Result Comment: The eGFR is calculated using the CKD-EPI formula. In most young, healthy individuals the eGFR will be >90 mL/min/1.73m2. The eGFR declines with age. An eGFR of 60-89 may be normal in some populations, particularly the elderly, for whom the CKD-EPI formula has not been extensively validated. Use of the eGFR is not recommended in the following populations: Individuals with unstable creatinine concentrations, including patients and those with serious co-morbid conditions. Patients with extremes in muscle mass or diet. The data above are obtained from the National Kidney Disease Education Program (NKDEP) which additionally recommends that when the eGFR is used in patients with extremes of body mass index for purposes of drug dosing, the eGFR should be multiplied by the estimated BMI. [facility] CHEM PANEL B/C Ratio 13 6 - 25 11/04/2015 [facility] CHEM PANEL Globulin 3.5 g/dL 2.0 - 4.0 11/04/2015 [facility] CHEM PANEL A/G Ratio 1.0 0.7 - 1.6 11/04/2015 [facility] CHEM PANEL Bili Total 0.8 mg/dL 0.2 - 1.3 11/04/2015 [facility] CHEM PANEL AGAP 13.6 meq/L 10.0 - 20.0 11/04/2015 [facility] CHEM PANEL Alk Phos 88 unit/L 39 - 136 11/04/2015 [facility] CHEM PANEL AST 16 unit/L 0 - 37 11/04/2015 [facility] CHEM PANEL Calcium Lvl 8.7 mg/dL 8.5 - 10.5 11/04/2015 [facility] CHEM PANEL Total Protein 6.9 g/dL 6.4 - 8.4 11/04/2015 [facility] CHEM PANEL ALT 21 unit/L 0 - 65 11/04/2015 [facility] CHEM PANEL Albumin Lvl 3.4 g/dL 3.5 - 5.0 11/04/2015 [facility] CHEM PANEL Potassium Lvl 3.6 meq/L 3.5 - 5.1 11/04/2015 [facility] CHEM PANEL Sodium Lvl 135 meq/L 135 - 145 11/04/2015 [facility] CHEM PANEL CO2 21 meq/L 24 - 32 11/04/2015 [facility] CHEM PANEL Chloride Lvl 104 meq/L 95 - 109 11/04/2015 [facility] CHEM PANEL Glucose Lvl 99 mg/dL 70 - 99 11/04/2015 [facility] CHEM PANEL Creatinine Lvl 0.98 mg/dL 0.50 - 1.40 11/04/2015 [facility] CHEM PANEL BUN 13 mg/dL 7 - 22 11/04/2015 [facility] HEMATOLOGY Monocytes # 1.0 K/CMM 0.0 - 0.8 11/04/2015 [facility] HEMATOLOGY Lymphocytes # 0.6 K/CMM 1.0 - 5.5 11/04/2015 [facility] HEMATOLOGY Segs-Bands # 19.1 K/CMM 1.5 - 8.1 11/04/2015 [facility] HEMATOLOGY Eosinophils 0.5 % 0.0 - 4.0 11/04/2015 [facility] HEMATOLOGY Basophils 0.3 % 0.0 - 1.0 11/04/2015 [facility] HEMATOLOGY Basophils # 0.1 K/CMM 0.0 - 0.2 11/04/2015 [facility] HEMATOLOGY Eosinophils # 0.1 K/CMM 0.0 - 0.5 11/04/2015 [facility] HEMATOLOGY Monocytes 4.8 % 2.0 - 12.0 11/04/2015 [facility] HEMATOLOGY Lymphocytes 2.7 % 20.0 - 40.0 11/04/2015 [facility] HEMATOLOGY Segs 91.7 % 45.0 - 75.0 11/04/2015 [facility] HEMATOLOGY PTT 35.1 s 22.9 - 35.8 11/04/2015 [facility] D-Dimer 1.38 ug/mL FEU 11/04/2015 [facility] PT 16.1 s 12.0 - 14.7 11/04/2015 [facility] INR 1.26 0.85 - 1.17 11/04/2015 [facility] RBC 4.68 M/CMM 4.20 - 5.40 11/04/2015 [facility] Platelet 164 K/CMM 133 - 450 11/04/2015 [facility] WBC 20.8 K/CMM 3.7 - 10.4 11/04/2015 [facility] MCH 27.7 pg 27.0 - 31.0 11/04/2015 [facility] MCV 84.4 fL 80.0 - 98.0 11/04/2015 [facility] Hct 39.5 % 36.0 - 48.0 11/04/2015 [facility] Hgb 12.9 g/dL 12.0 - 16.0 11/04/2015 [facility] RDW 14.4 % 11.5 - 14.5 11/04/2015 [facility] MCHC 32.8 g/dL 32.0 - 36.0 11/04/2015 [facility] MPV 8.3 fL 7.4 - 10.4 11/04/2015 [facility] Chest/Abd/Pelvis CTA Chest/Abd/Pelvis CTA CTA PULMONARY ARTERIES; CT CHEST ABDOMEN PELVIS WITH CONTRAST: HISTORY: Chest and flank pain, history of ureteral calculus. TECHNIQUE: Multislice helical images targeted to the pulmonary arteries were done during IV contrast bolus. This was followed by a complete study of the chest, abdomen and pelvis with IV contrast. 3-D volume rendered images of the pulmonary arteries were done. ANGIOGRAPHIC FINDINGS: There is no evidence of pulmonary embolus. The central pulmonary arteries are normal caliber. The main pulmonary artery measures 2.4 cm in diameter. There are no other significant pulmonary or systemic vascular abnormalities. NON-ANGIOGRAPHIC FINDINGS: There are no significant pulmonary or pleural abnormalities. There is no mediastinal mass or significant lymph node enlargement. There is a 3 mm calculus in the distal left ureter at the ureterovesical junction with moderate left hydronephrosis. There are no other significant renal abnormalities. The liver, spleen, pancreas and adrenal glands show no significant abnormalities. The gastrointestinal tract is unremarkable. The uterus is absent. There is a 2.4 cm cyst in the left ovary. There are no acute osseous abnormalities. IMPRESSION: 1. No evidence of pulmonary embolus. 2. Distal left ureteral calculus with moderate left hydronephrosis. 3. Left ovarian cyst. 4. No other acute CT abnormalities in the chest, abdomen or pelvis. [id number] 11/04/2015 - - Read by: Vasiliy Gonzalez MD Dictated Date/time: 11/04/15 13:10 Electronically Signed by: Vasiliy Gonzalez MD 11/04/15 13:18 FINAL REPORT [facility] Chest 1view DX Chest 1view DX Patient Name: ANGELA ESPINOSA : 1975; Age: 39 years Female MR: [id number] Study: Chest 1view DX Order Time: 11/04/2015 11:10 AM CDT Clinical Indication: Chest pain. CHEST PAIN, HYSTERECTOMY DEC, 2013 COMPARISON: August 2013. May 2013. April 2012. FINDINGS: Views: 1 LUNGS: There is normal lung volume. There are no suspicious interstitial/airspace opacities. There are no pleural effusions. There is no pneumothorax. The pulmonary vasculature is normal. MEDIASTINUM: The cardiac silhouette is normal. The trachea is midline. BONES: There are no clinically significant osseous abnormalities noted. IMPRESSION: No radiographic evidence of acute cardiopulmonary disease. : [id number] 11/04/2015 - - Read by: Bg Monge MD Dictated Date/time: 11/04/15 11:58 Electronically Signed by: Bg Monge MD 11/04/15 11:59 FINAL REPORT [facility] CHEM PANEL Lipase Lvl 160 unit/L 73 - 393 08/10/2015 [facility] CHEM PANEL Amylase Lvl 65 unit/L 25 - 115 08/10/2015 [facility] CHEM PANEL eGFR 88 mL/min/1.73m2 08/10/2015 Result Comment: The eGFR is calculated using the CKD-EPI formula. In most young, healthy individuals the eGFR will be >90 mL/min/1.73m2. The eGFR declines with age. An eGFR of 60-89 may be normal in some populations, particularly the elderly, for whom the CKD-EPI formula has not been extensively validated. Use of the eGFR is not recommended in the following populations: Individuals with unstable creatinine concentrations, including patients and those with serious co-morbid conditions. Patients with extremes in muscle mass or diet. The data above are obtained from the National Kidney Disease Education Program (NKDEP) which additionally recommends that when the eGFR is used in patients with extremes of body mass index for purposes of drug dosing, the eGFR should be multiplied by the estimated BMI. [facility] CHEM PANEL Bili Total 0.5 mg/dL 0.2 - 1.3 08/10/2015 [facility] CHEM PANEL Chloride Lvl 103 meq/L 95 - 109 08/10/2015 [facility] CHEM PANEL CO2 31 meq/L 24 - 32 08/10/2015 [facility] CHEM PANEL Potassium Lvl 3.5 meq/L 3.5 - 5.1 08/10/2015 [facility] CHEM PANEL Calcium Lvl 8.9 mg/dL 8.5 - 10.5 08/10/2015 [facility] CHEM PANEL Total Protein 6.9 g/dL 6.4 - 8.4 08/10/2015 [facility] CHEM PANEL Glucose Lvl 102 mg/dL 70 - 99 08/10/2015 [facility] CHEM PANEL BUN 8 mg/dL 7 - 22 08/10/2015 [facility] CHEM PANEL Creatinine Lvl 0.85 mg/dL 0.50 - 1.40 08/10/2015 [facility] CHEM PANEL Sodium Lvl 139 meq/L 135 - 145 08/10/2015 [facility] CHEM PANEL AST 13 unit/L 0 - 37 08/10/2015 [facility] CHEM PANEL ALT 21 unit/L 0 - 65 08/10/2015 [facility] CHEM PANEL Alk Phos 76 unit/L 39 - 136 08/10/2015 [facility] CHEM PANEL Albumin Lvl 4.0 g/dL 3.5 - 5.0 08/10/2015 [facility] CHEM PANEL A/G Ratio 1.4 0.7 - 1.6 08/10/2015 [facility] CHEM PANEL Globulin 2.9 g/dL 2.0 - 4.0 08/10/2015 [facility] CHEM PANEL B/C Ratio 9 6 - 25 08/10/2015 [facility] CHEM PANEL AGAP 8.5 meq/L 10.0 - 20.0 08/10/2015 [facility] HEMATOLOGY MPV 7.6 fL 7.4 - 10.4 08/10/2015 [facility] HEMATOLOGY RDW 14.0 % 11.5 - 14.5 08/10/2015 [facility] HEMATOLOGY MCH 28.4 pg 27.0 - 31.0 08/10/2015 [facility] MCV 86.4 fL 80.0 - 98.0 08/10/2015 [facility] HEMATOLOGY Platelet 221 K/CMM 133 - 450 08/10/2015 [facility] MCHC 32.8 g/dL 32.0 - 36.0 08/10/2015 [facility] Hgb 13.6 g/dL 12.0 - 16.0 08/10/2015 [facility] Hct 41.3 % 36.0 - 48.0 08/10/2015 [facility] WBC 6.8 K/CMM 3.7 - 10.4 08/10/2015 [facility] RBC 4.79 M/CMM 4.20 - 5.40 08/10/2015 [facility] HEMATOLOGY Segs 55.3 % 45.0 - 75.0 08/10/2015 [facility] HEMATOLOGY Basophils # 0.1 K/CMM 0.0 - 0.2 08/10/2015 [facility] HEMATOLOGY Eosinophils # 0.2 K/CMM 0.0 - 0.5 08/10/2015 [facility] HEMATOLOGY Lymphocytes # 2.4 K/CMM 1.0 - 5.5 08/10/2015 [facility] Monocytes # 0.4 K/CMM 0.0 - 0.8 08/10/2015 [facility] Basophils 1.1 % 0.0 - 1.0 08/10/2015 [facility] HEMATOLOGY Eosinophils 2.4 % 0.0 - 4.0 08/10/2015 [facility] Monocytes 6.4 % 2.0 - 12.0 08/10/2015 [facility] Lymphocytes 34.8 % 20.0 - 40.0 08/10/2015 [facility] Segs-Bands # 3.8 K/CMM 1.5 - 8.1 08/10/2015 [facility] URINE AND STOOL UA Color Ltyellow 08/10/2015 [facility] URINE AND STOOL UA Urobilinogen <=1.0 mg/dL 0.1 - 1.0 08/10/2015 [facility] URINE AND STOOL UA Glucose Negative mg/dL Negative mg/dL 08/10/2015 [facility] URINE AND STOOL UA Ketones Negative mg/dL Negative mg/dL 08/10/2015 [facility] URINE AND STOOL UA Protein Negative mg/dL Negative mg/dL 08/10/2015 [facility] URINE AND STOOL UA Turbidity Clear (08/09/15 10:29 PM) Clear 08/10/2015 [facility] URINE AND STOOL UA Spec Grav 1.012 <=1.030 08/10/2015 [facility] URINE AND STOOL UA pH 7.0 5.0 - 8.0 08/10/2015 [facility] URINE AND STOOL UA WBC 1 /HPF 0 - 5 08/10/2015 [facility] URINE AND STOOL UA RBC 3 /HPF 0 - 2 08/10/2015 [facility] URINE AND STOOL UA Bili Negative *NA* (08/09/15 10:29 PM) Negative 08/10/2015 [facility] URINE AND STOOL UA Nitrite Negative (08/09/15 10:29 PM) Negative 08/10/2015 [facility] URINE AND STOOL UA Blood Negative (08/09/15 10:29 PM) Negative 08/10/2015 [facility] URINE AND STOOL UA Sq Epi Occasional /LPF Few /LPF 08/10/2015 [facility] URINE AND STOOL UA Leuk Est Negative (08/09/15 10:29 PM) Negative 08/10/2015 [facility] URINE CHEM U Preg Negative (08/09/15 10:29 PM) Negative 08/10/2015 [facility] CHEM PANEL B/C Ratio 16 6 - 25 08/08/2015 [facility] CHEM PANEL AGAP 11.5 meq/L 10.0 - 20.0 08/08/2015 [facility] CHEM PANEL Globulin 2.7 g/dL 2.0 - 4.0 08/08/2015 [facility] CHEM PANEL A/G Ratio 1.3 0.7 - 1.6 08/08/2015 [facility] CHEM PANEL eGFR 114 mL/min/1.73m2 08/08/2015 Result Comment: The eGFR is calculated using the CKD-EPI formula. In most young, healthy individuals the eGFR will be >90 mL/min/1.73m2. The eGFR declines with age. An eGFR of 60-89 may be normal in some populations, particularly the elderly, for whom the CKD-EPI formula has not been extensively validated. Use of the eGFR is not recommended in the following populations: Individuals with unstable creatinine concentrations, including patients and those with serious co-morbid conditions. Patients with extremes in muscle mass or diet. The data above are obtained from the National Kidney Disease Education Program (NKDEP) which additionally recommends that when the eGFR is used in patients with extremes of body mass index for purposes of drug dosing, the eGFR should be multiplied by the estimated BMI. [facility] CHEM PANEL Sodium Lvl 140 meq/L 135 - 145 08/08/2015 [facility] CHEM PANEL CO2 26 meq/L 24 - 32 08/08/2015 [facility] CHEM PANEL Chloride Lvl 106 meq/L 95 - 109 08/08/2015 [facility] CHEM PANEL Potassium Lvl 3.5 meq/L 3.5 - 5.1 08/08/2015 [facility] CHEM PANEL Albumin Lvl 3.6 g/dL 3.5 - 5.0 08/08/2015 [facility] CHEM PANEL Calcium Lvl 8.0 mg/dL 8.5 - 10.5 08/08/2015 [facility] CHEM PANEL Total Protein 6.3 g/dL 6.4 - 8.4 08/08/2015 [facility] CHEM PANEL BUN 10 mg/dL 7 - 22 08/08/2015 [facility] CHEM PANEL Glucose Lvl 85 mg/dL 70 - 99 08/08/2015 [facility] CHEM PANEL Creatinine Lvl 0.64 mg/dL 0.50 - 1.40 08/08/2015 [facility] CHEM PANEL Bili Total 0.4 mg/dL 0.2 - 1.3 08/08/2015 [facility] CHEM PANEL ALT 20 unit/L 0 - 65 08/08/2015 [facility] CHEM PANEL AST 12 unit/L 0 - 37 08/08/2015 [facility] CHEM PANEL Alk Phos 70 unit/L 39 - 136 08/08/2015 [facility] ENDOCRINOLOGY S Preg Negative *NA* (08/07/15 11:02 PM) Negative 08/08/2015 [facility] MCHC 32.9 g/dL 32.0 - 36.0 08/08/2015 [facility] HEMATOLOGY RDW 13.8 % 11.5 - 14.5 08/08/2015 [facility] HEMATOLOGY MCH 28.6 pg 27.0 - 31.0 08/08/2015 [facility] HEMATOLOGY MPV 8.0 fL 7.4 - 10.4 08/08/2015 [facility] HEMATOLOGY Platelet 211 K/CMM 133 - 450 08/08/2015 [facility] HEMATOLOGY Hct 38.1 % 36.0 - 48.0 08/08/2015 [facility] HEMATOLOGY Hgb 12.5 g/dL 12.0 - 16.0 08/08/2015 [facility] HEMATOLOGY MCV 86.7 fL 80.0 - 98.0 08/08/2015 [facility] HEMATOLOGY WBC 6.7 K/CMM 3.7 - 10.4 08/08/2015 [facility] HEMATOLOGY RBC 4.39 M/CMM 4.20 - 5.40 08/08/2015 [facility] HEMATOLOGY Basophils 1.0 % 0.0 - 1.0 08/08/2015 [facility] HEMATOLOGY Eosinophils 2.9 % 0.0 - 4.0 08/08/2015 [facility] HEMATOLOGY Monocytes 7.5 % 2.0 - 12.0 08/08/2015 [facility] HEMATOLOGY Segs-Bands # 3.4 K/CMM 1.5 - 8.1 08/08/2015 [facility] HEMATOLOGY Segs 50.4 % 45.0 - 75.0 08/08/2015 [facility] HEMATOLOGY Lymphocytes 38.2 % 20.0 - 40.0 08/08/2015 [facility] HEMATOLOGY Basophils # 0.1 K/CMM 0.0 - 0.2 08/08/2015 [facility] HEMATOLOGY Eosinophils # 0.2 K/CMM 0.0 - 0.5 08/08/2015 [facility] HEMATOLOGY Monocytes # 0.5 K/CMM 0.0 - 0.8 08/08/2015 [facility] HEMATOLOGY Lymphocytes # 2.6 K/CMM 1.0 - 5.5 08/08/2015 [facility] URINE AND STOOL UA Urobilinogen <=1.0 mg/dL 0.1 - 1.0 08/08/2015 [facility] URINE AND STOOL UA RBC 4 /HPF 0 - 2 08/08/2015 [facility] URINE AND STOOL UA WBC 2 /HPF 0 - 5 08/08/2015 [facility] URINE AND STOOL UA Color Ltyellow 08/08/2015 [facility] URINE AND STOOL UA Sq Epi Occasional /LPF Few /LPF 08/08/2015 [facility] URINE AND STOOL UA Leuk Est Negative (08/07/15 8:26 PM) Negative 08/08/2015 [facility] URINE AND STOOL UA Protein Negative mg/dL Negative mg/dL 08/08/2015 [facility] URINE AND STOOL UA Glucose Negative mg/dL Negative mg/dL 08/08/2015 [facility] URINE AND STOOL UA Turbidity Clear (08/07/15 8:26 PM) Clear 08/08/2015 [facility] URINE AND STOOL UA Blood Negative (08/07/15 8:26 PM) Negative 08/08/2015 [facility] URINE AND STOOL UA Ketones Negative mg/dL Negative mg/dL 08/08/2015 [facility] URINE AND STOOL UA Bili Negative *NA* (08/07/15 8:26 PM) Negative 08/08/2015 [facility] URINE AND STOOL UA Nitrite Negative (08/07/15 8:26 PM) Negative 08/08/2015 [facility] URINE AND STOOL UA Spec Grav 1.014 <=1.030 08/08/2015 [facility] URINE AND STOOL UA pH 6.0 5.0 - 8.0 08/08/2015 [facility] ED Abdomen/Pelvis IV contrast only CT ED Abdomen/Pelvis IV contrast only CT CT abdomen/pelvis with IV contrast HISTORY: Abdominal pain, flank pain, nausea, vomiting. COMPARISON: 05/09/2015 FINDINGS: Mild atelectasis in the lung bases. The liver, spleen, pancreas, and adrenal glands appear normal. Cholecystectomy is noted. Single small left renal calyceal calculus measuring 3 mm in 2 small right renal calyceal calculi measuring 2 mm each are unchanged. No ureteral calculus. No urinary obstruction. Bilateral small complex cystic nodules in the pelvis adjacent to the course of each ureter are grossly unchanged from the prior exam and likely represent the ovaries, likely status post ovarian transposition. Hysterectomy is noted. Trace free fluid in the pelvis is likely physiologic. Urinary bladder is unremarkable. Small and large bowel appear normal. Normal appendix. Osseous and vascular structures are unremarkable. IMPRESSION: 1. Two stable complex cystic nodules in the pelvis which likely represent patient's ovaries, likely status post transposition. 2. Hysterectomy. 3. Trace free fluid in the pelvis is likely physiologic. 4. Unchanged bilateral nonobstructing renal calculi SL: [id number] 08/08/2015 - - Read by: Efra Grider MD Dictated Date/time: 08/08/15 01:54 Electronically Signed by: Efra Grider MD 08/08/15 02:03 FINAL REPORT [facility] URINE AND STOOL UA Urobilinogen <=1.0 mg/dL 0.1 - 1.0 05/11/2015 [facility] URINE AND STOOL UA Color Ltyellow 05/11/2015 [facility] URINE AND STOOL UA Glucose Negative mg/dL Negative mg/dL 05/11/2015 [facility] URINE AND STOOL UA Ketones Negative mg/dL Negative mg/dL 05/11/2015 [facility] URINE AND STOOL UA pH 6.0 5.0 - 8.0 05/11/2015 [facility] URINE AND STOOL UA Protein Negative mg/dL Negative mg/dL 05/11/2015 [facility] URINE AND STOOL UA Turbidity Clear (05/11/15 8:13 AM) Clear 05/11/2015 [facility] URINE AND STOOL UA Spec Grav 1.013 <=1.030 05/11/2015 [facility] URINE AND STOOL UA Nitrite Negative (05/11/15 8:13 AM) Negative 05/11/2015 [facility] URINE AND STOOL UA Leuk Est Negative (05/11/15 8:13 AM) Negative 05/11/2015 [facility] URINE AND STOOL UA Sq Epi Occasional /LPF Few /LPF 05/11/2015 [facility] URINE AND STOOL UA Blood Negative (05/11/15 8:13 AM) Negative 05/11/2015 [facility] URINE AND STOOL UA Bili Negative *NA* (05/11/15 8:13 AM) Negative 05/11/2015 [facility] URINE AND STOOL UA WBC 4 /HPF 0 - 5 05/11/2015 [facility] URINE AND STOOL UA RBC 3 /HPF 0 - 2 05/11/2015 [facility] URINE AND STOOL UA Mucus Few /LPF None Seen /LPF 05/11/2015 [facility] URINE AND STOOL UA Hyal Cast 1 /LPF 0 - 2 05/11/2015 [facility] CHEM PANEL Glucose Lvl 97 mg/dL 70 - 99 05/11/2015 [facility] CHEM PANEL Sodium Lvl 138 meq/L 135 - 145 05/11/2015 [facility] CHEM PANEL Potassium Lvl 4.1 meq/L 3.5 - 5.1 05/11/2015 [facility] CHEM PANEL BUN 12 mg/dL 7 - 22 05/11/2015 [facility] CHEM PANEL Chloride Lvl 106 meq/L 95 - 109 05/11/2015 [facility] CHEM PANEL CO2 25 meq/L 24 - 32 05/11/2015 [facility] CHEM PANEL Calcium Lvl 8.5 mg/dL 8.5 - 10.5 05/11/2015 [facility] CHEM PANEL eGFR 87 mL/min/1.73m2 05/11/2015 Result Comment: The eGFR is calculated using the CKD-EPI formula. In most young, healthy individuals the eGFR will be >90 mL/min/1.73m2. The eGFR declines with age. An eGFR of 60-89 may be normal in some populations, particularly the elderly, for whom the CKD-EPI formula has not been extensively validated. Use of the eGFR is not recommended in the following populations: Individuals with unstable creatinine concentrations, including patients and those with serious co-morbid conditions. Patients with extremes in muscle mass or diet. The data above are obtained from the National Kidney Disease Education Program (NKDEP) which additionally recommends that when the eGFR is used in patients with extremes of body mass index for purposes of drug dosing, the eGFR should be multiplied by the estimated BMI. [facility] CHEM PANEL Creatinine Lvl 0.86 mg/dL 0.50 - 1.40 05/11/2015 [facility] CHEM PANEL AGAP 11.1 meq/L 10.0 - 20.0 05/11/2015 [facility] HEMATOLOGY Segs-Bands # 2.9 K/CMM 1.5 - 8.1 05/11/2015 [facility] HEMATOLOGY Basophils 0.8 % 0.0 - 1.0 05/11/2015 [facility] HEMATOLOGY Segs 64.5 % 45.0 - 75.0 05/11/2015 [facility] HEMATOLOGY Eosinophils 2.0 % 0.0 - 4.0 05/11/2015 [facility] Lymphocytes 22.1 % 20.0 - 40.0 05/11/2015 [facility] HEMATOLOGY Monocytes 10.6 % 2.0 - 12.0 05/11/2015 [facility] Monocytes # 0.5 K/CMM 0.0 - 0.8 05/11/2015 [facility] Lymphocytes # 1.0 K/CMM 1.0 - 5.5 05/11/2015 [facility] HEMATOLOGY Eosinophils # 0.1 K/CMM 0.0 - 0.5 05/11/2015 [facility] RDW 14.0 % 11.5 - 14.5 05/11/2015 [facility] Platelet 171 K/CMM 133 - 450 05/11/2015 [facility] MPV 8.2 fL 7.4 - 10.4 05/11/2015 [facility] WBC 4.4 K/CMM 3.7 - 10.4 05/11/2015 [facility] MCH 28.3 pg 27.0 - 31.0 05/11/2015 [facility] MCHC 32.2 g/dL 32.0 - 36.0 05/11/2015 [facility] Hct 39.2 % 36.0 - 48.0 05/11/2015 [facility] MCV 88.1 fL 80.0 - 98.0 05/11/2015 [facility] RBC 4.45 M/CMM 4.20 - 5.40 05/11/2015 [facility] HEMATOLOGY Hgb 12.6 g/dL 12.0 - 16.0 05/11/2015 [facility] CHEM PANEL Lipase Lvl 138 unit/L 73 - 393 05/09/2015 [facility] CHEM PANEL Amylase Lvl 97 unit/L 25 - 115 05/09/2015 [facility] ELECTROLYTES AGAP 8.0 meq/L 10.0 - 20.0 05/09/2015 [facility] ELECTROLYTES A/G Ratio 1.3 0.7 - 1.6 05/09/2015 [facility] ELECTROLYTES Globulin 2.9 g/dL 2.0 - 4.0 05/09/2015 [facility] ELECTROLYTES B/C Ratio 11 6 - 25 05/09/2015 [facility] ELECTROLYTES Alk Phos 68 unit/L 39 - 136 05/09/2015 [facility] ELECTROLYTES ALT 23 unit/L 0 - 65 05/09/2015 [facility] ELECTROLYTES Bili Total 0.5 mg/dL 0.2 - 1.3 05/09/2015 [facility] ELECTROLYTES AST 10 unit/L 0 - 37 05/09/2015 [facility] ELECTROLYTES eGFR 96 mL/min/1.73m2 05/09/2015 Result Comment: The eGFR is calculated using the CKD-EPI formula. In most young, healthy individuals the eGFR will be >90 mL/min/1.73m2. The eGFR declines with age. An eGFR of 60-89 may be normal in some populations, particularly the elderly, for whom the CKD-EPI formula has not been extensively validated. Use of the eGFR is not recommended in the following populations: Individuals with unstable creatinine concentrations, including patients and those with serious co-morbid conditions. Patients with extremes in muscle mass or diet. The data above are obtained from the National Kidney Disease Education Program (NKDEP) which additionally recommends that when the eGFR is used in patients with extremes of body mass index for purposes of drug dosing, the eGFR should be multiplied by the estimated BMI. [facility] ELECTROLYTES Albumin Lvl 3.7 g/dL 3.5 - 5.0 05/09/2015 [facility] ELECTROLYTES Total Protein 6.6 g/dL 6.4 - 8.4 05/09/2015 [facility] ELECTROLYTES Glucose Lvl 78 mg/dL 70 - 99 05/09/2015 [facility] ELECTROLYTES BUN 9 mg/dL 7 - 22 05/09/2015 [facility] ELECTROLYTES CO2 29 meq/L 24 - 32 05/09/2015 [facility] ELECTROLYTES Creatinine Lvl 0.79 mg/dL 0.50 - 1.40 05/09/2015 [facility] ELECTROLYTES Sodium Lvl 140 meq/L 135 - 145 05/09/2015 [facility] ELECTROLYTES Chloride Lvl 107 meq/L 95 - 109 05/09/2015 [facility] ELECTROLYTES Potassium Lvl 4.0 meq/L 3.5 - 5.1 05/09/2015 [facility] ELECTROLYTES Calcium Lvl 8.3 mg/dL 8.5 - 10.5 05/09/2015 [facility] HEMATOLOGY Eosinophils # 0.1 K/CMM 0.0 - 0.5 05/09/2015 [facility] HEMATOLOGY Basophils # 0.1 K/CMM 0.0 - 0.2 05/09/2015 [facility] HEMATOLOGY Monocytes 9.6 % 2.0 - 12.0 05/09/2015 [facility] HEMATOLOGY Lymphocytes 21.9 % 20.0 - 40.0 05/09/2015 [facility] HEMATOLOGY Eosinophils 2.8 % 0.0 - 4.0 05/09/2015 [facility] HEMATOLOGY Lymphocytes # 1.2 K/CMM 1.0 - 5.5 05/09/2015 [facility] HEMATOLOGY Segs 64.4 % 45.0 - 75.0 05/09/2015 [facility] [facility] HEMATOLOGY Monocytes # 0.5 K/CMM 0.0 - 0.8 05/09/2015 [facility] HEMATOLOGY Basophils 1.3 % 0.0 - 1.0 05/09/2015 [facility] HEMATOLOGY Segs-Bands # 3.4 K/CMM 1.5 - 8.1 05/09/2015 [facility] HEMATOLOGY MCH 29.0 pg 27.0 - 31.0 05/09/2015 [facility] HEMATOLOGY Hgb 13.5 g/dL 12.0 - 16.0 05/09/2015 [facility] HEMATOLOGY Hct 41.7 % 36.0 - 48.0 05/09/2015 [facility] HEMATOLOGY MCHC 32.5 g/dL 32.0 - 36.0 05/09/2015 [facility] HEMATOLOGY MCV 89.1 fL 80.0 - 98.0 05/09/2015 [facility] HEMATOLOGY WBC 5.3 K/CMM 3.7 - 10.4 05/09/2015 [facility] HEMATOLOGY RBC 4.68 M/CMM 4.20 - 5.40 05/09/2015 [facility] HEMATOLOGY Platelet 185 K/CMM 133 - 450 05/09/2015 [facility] HEMATOLOGY MPV 8.1 fL 7.4 - 10.4 05/09/2015 [facility] HEMATOLOGY RDW 14.0 % 11.5 - 14.5 05/09/2015 [facility] URINE AND STOOL UA Urobilinogen 0.2 EU/dL 0.1 - 1.0 05/09/2015 [facility] URINE AND STOOL UA Nitrite Negative (05/09/15 7:47 AM) Negative 05/09/2015 [facility] URINE AND STOOL UA Leuk Est Small *ABN* (05/09/15 7:47 AM) Negative 05/09/2015 [facility] URINE AND STOOL UA Protein Negative (05/09/15 7:47 AM) Negative 05/09/2015 [facility] URINE AND STOOL UA Blood Negative (05/09/15 7:47 AM) Negative 05/09/2015 [facility] URINE AND STOOL UA Glucose Negative (05/09/15 7:47 AM) Negative 05/09/2015 [facility] URINE AND STOOL UA Spec Grav <=1.005
*NA*
(05/09/15 7:47 AM) <=1.030 05/09/2015 [facility] URINE AND STOOL UA pH 7.0 5.0 - 8.0 05/09/2015 [facility] URINE AND STOOL UA Ketones Negative *NA* (05/09/15 7:47 AM) Negative 05/09/2015 [facility] URINE AND STOOL UA Bili Negative *NA* (05/09/15 7:47 AM) Negative 05/09/2015 [facility] URINE AND STOOL UA Color Yellow *NA* (05/09/15 7:47 AM) Yellow 05/09/2015 [facility] URINE AND STOOL UA Turbidity Clear (05/09/15 7:47 AM) Clear 05/09/2015 [facility] URINE AND STOOL UA WBC 2 /HPF 0 - 5 05/09/2015 [facility] URINE AND STOOL UA Sq Epi Few /LPF Few /LPF 05/09/2015 [facility] URINE AND STOOL UA RBC 2 /HPF 0 - 2 05/09/2015 [facility] URINE CHEM U Preg Negative (05/09/15 7:47 AM) Negative 05/09/2015 [facility] Pelvis w Transvag and Pelvis Doppler US Pelvis w Transvag and Pelvis Doppler US CLINICAL HISTORY: Acute pelvic pain radiating to right lower quadrant. Transabdominal and transvaginal pelvic ultrasound with pelvic Doppler. Transabdominal series demonstrates absent uterus. No adnexal mass. Ovaries not visualized transabdominally. Transvaginal study demonstrates absent uterus. Left ovary 2.3 x 1.6 x 1.5 cm, normal. Right ovary 2.2 x 1.6 x 2.2 cm, with 1 cm complex cyst. Small fluid in the cul-de-sac. There is normal arterial and venous vascular flow within bilateral ovarian parenchyma on spectral Doppler images. IMPRESSION: No evidence for ovarian torsion. Small right ovarian complex, possibly hemorrhagic cyst. Small free fluid in the pelvis. SL:13 05/09/2015 - - Read by: Noah Regan MD Dictated Date/time: 05/09/15 11:08 Electronically Signed by: Noah Regan MD 05/09/15 11:11 FINAL REPORT [facility] Abdomen/Pelvis w IV contrast CT Abdomen/Pelvis w IV contrast CT PROCEDURE: Abdomen/Pelvis w contrast CT REASON FOR EXAM: r/o appy - c/o rlq pain and right flank pain CLINICAL INFORMATION Abdominal pain, acute COMPARISON: 05/02/2015. 03/29/2015. 01/28/2015. ABDOMEN with IV contrast: Bibasilar atelectasis. Post cholecystectomy. Small umbilical 2 cm fat-containing hernia. Normal aortic caliber, no dissection. Retroaortic left renal vein. Normal liver, portal vein, spleen, adrenal glands, pancreas. Bilateral nonobstructing renal stones with overall limited evaluation secondary to IV contrast. Stable left renal presumed proteinaceous cyst. PELVIS with IV contrast: No small bowel obstruction. Constipation. Normal appendix. Free fluid in the lower pelvis. Right ovarian cyst measuring 2.6 cm. Normally distended bladder. IMPRESSION: 1. Normal appendix. Bilateral nonobstructing renal stones. 2. Right ovarian cyst with free fluid in the lower pelvis. Pelvic and transvaginal ultrasound with Doppler is recommended to evaluate. 3. Post cholecystectomy. 4. Stable presumed left renal cyst. Continued surveillance is advised. SL: 12 05/09/2015 - - Read by: Bg Monge MD Dictated Date/time: 05/09/15 09:29 Electronically Signed by: Bg Monge MD 05/09/15 09:36 FINAL REPORT [facility] CHEM PANEL Lipase Lvl 215 unit/L 73 - 393 05/02/2015 [facility] CHEM PANEL eGFR 91 mL/min/1.73m2 05/02/2015 Result Comment: The eGFR is calculated using the CKD-EPI formula. In most young, healthy individuals the eGFR will be >90 mL/min/1.73m2. The eGFR declines with age. An eGFR of 60-89 may be normal in some populations, particularly the elderly, for whom the CKD-EPI formula has not been extensively validated. Use of the eGFR is not recommended in the following populations: Individuals with unstable creatinine concentrations, including patients and those with serious co-morbid conditions. Patients with extremes in muscle mass or diet. The data above are obtained from the National Kidney Disease Education Program (NKDEP) which additionally recommends that when the eGFR is used in patients with extremes of body mass index for purposes of drug dosing, the eGFR should be multiplied by the estimated BMI. [facility] CHEM PANEL Bili Total 0.3 mg/dL 0.2 - 1.3 05/02/2015 [facility] CHEM PANEL Alk Phos 64 unit/L 39 - 136 05/02/2015 [facility] CHEM PANEL Albumin Lvl 3.7 g/dL 3.5 - 5.0 05/02/2015 [facility] CHEM PANEL AST 9 unit/L 0 - 37 05/02/2015 [facility] CHEM PANEL ALT 23 unit/L 0 - 65 05/02/2015 [facility] CHEM PANEL Calcium Lvl 8.5 mg/dL 8.5 - 10.5 05/02/2015 [facility] CHEM PANEL CO2 27 meq/L 24 - 32 05/02/2015 [facility] CHEM PANEL Chloride Lvl 108 meq/L 95 - 109 05/02/2015 [facility] CHEM PANEL Total Protein 6.7 g/dL 6.4 - 8.4 05/02/2015 [facility] CHEM PANEL Sodium Lvl 141 meq/L 135 - 145 05/02/2015 [facility] CHEM PANEL Potassium Lvl 3.6 meq/L 3.5 - 5.1 05/02/2015 [facility] CHEM PANEL Creatinine Lvl 0.83 mg/dL 0.50 - 1.40 05/02/2015 [facility] CHEM PANEL BUN 10 mg/dL 7 - 22 05/02/2015 [facility] CHEM PANEL Glucose Lvl 93 mg/dL 70 - 99 05/02/2015 [facility] CHEM PANEL A/G Ratio 1.2 0.7 - 1.6 05/02/2015 [facility] CHEM PANEL AGAP 9.6 meq/L 10.0 - 20.0 05/02/2015 [facility] CHEM PANEL B/C Ratio 12 6 - 25 05/02/2015 [facility] CHEM PANEL Globulin 3.0 g/dL 2.0 - 4.0 05/02/2015 [facility] HEMATOLOGY Monocytes # 0.3 K/CMM 0.0 - 0.8 05/02/2015 [facility] HEMATOLOGY Segs-Bands # 3.2 K/CMM 1.5 - 8.1 05/02/2015 [facility] HEMATOLOGY Eosinophils # 0.1 K/CMM 0.0 - 0.5 05/02/2015 [facility] HEMATOLOGY Basophils # 0.1 K/CMM 0.0 - 0.2 05/02/2015 [facility] HEMATOLOGY Lymphocytes 25.8 % 20.0 - 40.0 05/02/2015 [facility] HEMATOLOGY Monocytes 6.6 % 2.0 - 12.0 05/02/2015 [facility] HEMATOLOGY Segs 64.3 % 45.0 - 75.0 05/02/2015 [facility] HEMATOLOGY Eosinophils 2.2 % 0.0 - 4.0 05/02/2015 [facility] HEMATOLOGY Lymphocytes # 1.3 K/CMM 1.0 - 5.5 05/02/2015 [facility] HEMATOLOGY Basophils 1.1 % 0.0 - 1.0 05/02/2015 [facility] HEMATOLOGY MPV 8.4 fL 7.4 - 10.4 05/02/2015 [facility] HEMATOLOGY Hct 41.0 % 36.0 - 48.0 05/02/2015 [facility] HEMATOLOGY Hgb 13.4 g/dL 12.0 - 16.0 05/02/2015 [facility] HEMATOLOGY MCH 28.8 pg 27.0 - 31.0 05/02/2015 [facility] HEMATOLOGY MCV 88.0 fL 80.0 - 98.0 05/02/2015 [facility] HEMATOLOGY RDW 14.1 % 11.5 - 14.5 05/02/2015 [facility] HEMATOLOGY MCHC 32.7 g/dL 32.0 - 36.0 05/02/2015 [facility] HEMATOLOGY Platelet 197 K/CMM 133 - 450 05/02/2015 [facility] HEMATOLOGY WBC 4.9 K/CMM 3.7 - 10.4 05/02/2015 [facility] HEMATOLOGY RBC 4.66 M/CMM 4.20 - 5.40 05/02/2015 [facility] URINE AND STOOL UA Urobilinogen <=1.0 mg/dL 0.1 - 1.0 05/02/2015 [facility] URINE AND STOOL UA Color Ltyellow 05/02/2015 [facility] URINE AND STOOL UA Sq Epi Occasional /LPF Few /LPF 05/02/2015 [facility] URINE AND STOOL UA WBC 5 /HPF 0 - 5 05/02/2015 [facility] URINE AND STOOL UA RBC 1 /HPF 0 - 2 05/02/2015 [facility] URINE AND STOOL UA Blood Negative (05/02/15 7:45 AM) Negative 05/02/2015 [facility] URINE AND STOOL UA Nitrite Negative (05/02/15 7:45 AM) Negative 05/02/2015 [facility] URINE AND STOOL UA Leuk Est Small *ABN* (05/02/15 7:45 AM) Negative 05/02/2015 [facility] URINE AND STOOL UA Turbidity Clear (05/02/15 7:45 AM) Clear 05/02/2015 [facility] URINE AND STOOL UA pH 6.0 5.0 - 8.0 05/02/2015 [facility] URINE AND STOOL UA Spec Grav 1.012 <=1.030 05/02/2015 [facility] URINE AND STOOL UA Glucose Negative mg/dL Negative mg/dL 05/02/2015 [facility] URINE AND STOOL UA Bili Negative *NA* (05/02/15 7:45 AM) Negative 05/02/2015 [facility] URINE AND STOOL UA Ketones Negative mg/dL Negative mg/dL 05/02/2015 [facility] URINE AND STOOL UA Protein Negative mg/dL Negative mg/dL 05/02/2015 [facility] Abdomen/Pelvis wo IV contrast CT Abdomen/Pelvis wo IV contrast CT CT ABDOMEN AND PELVIS WITHOUT CONTRAST, WITH RENAL STONE PROTOCOL. INDICATION: Bilateral flank pain, kidney stone history. COMPARISON: CT stone 03/29/2015 Images were obtained through the abdomen and pelvis at 5 mm intervals without contrast. Axial images with sagittal and coronal reconstructions were obtained. There are 4 right renal calculi, largest measuring 6 mm. There are also 2 left renal calculi, largest measuring 4 mm. No hydronephrosis or perinephric stranding is noted. There is a retroaortic left renal vein. The visualized lung bases are clear. The visualized liver and spleen are not remarkable. Cholecystectomy has been performed. The common duct is not dilated. The adrenals and pancreas are not remarkable. No intestinal lesion or mesenteric inflammatory change is noted. Mild constipation is noted. There are 2 tiny fat containing supraumbilical ventral abdominal hernias and a small fat containing umbilical hernia. The uterus is absent. Urinary bladder is not remarkable. No adnexal mass, adenopathy or ascites is seen. Stable 1.5 cm right adnexal cyst is noted. IMPRESSION: 1. Small bilateral renal calculi without obstruction. 2. Cholecystectomy. 3. Mild constipation. 4. Small fat containing ventral hernias as described. 5. Hysterectomy. SL: 05/02/2015 - - Read by: Jb Ribera MD Dictated Date/time: 05/02/15 09:38 Electronically Signed by: Jb Ribera MD 05/02/15 09:55 FINAL REPORT [facility] ELECTROLYTES Sodium Lvl 140 meq/L 135 - 145 03/29/2015 [facility] ELECTROLYTES Creatinine Lvl 0.9 mg/dL 0.5 - 1.4 03/29/2015 [facility] ELECTROLYTES Chloride Lvl 106 meq/L 95 - 109 03/29/2015 [facility] ELECTROLYTES Potassium Lvl 4.2 meq/L 3.5 - 5.1 03/29/2015 [facility] ELECTROLYTES CO2 30 meq/L 24 - 32 03/29/2015 [facility] ELECTROLYTES BUN 8 mg/dL 7 - 22 03/29/2015 [facility] ELECTROLYTES Glucose Lvl 94 mg/dL 70 - 99 03/29/2015 [facility] ELECTROLYTES Calcium Lvl 8.4 mg/dL 8.5 - 10.5 03/29/2015 [facility] ELECTROLYTES eGFR 82 mL/min/1.73m2 03/29/2015 Result Comment: The eGFR is calculated using the CKD-EPI formula. In most young, healthy individuals the eGFR will be >90 mL/min/1.73m2. The eGFR declines with age. An eGFR of 60-89 may be normal in some populations, particularly the elderly, for whom the CKD-EPI formula has not been extensively validated. Use of the eGFR is not recommended in the following populations: Individuals with unstable creatinine concentrations, including patients and those with serious co-morbid conditions. Patients with extremes in muscle mass or diet. The data above are obtained from the National Kidney Disease Education Program (NKDEP) which additionally recommends that when the eGFR is used in patients with extremes of body mass index for purposes of drug dosing, the eGFR should be multiplied by the estimated BMI. [facility] ELECTROLYTES AGAP 8.2 meq/L 10.0 - 20.0 03/29/2015 [facility] HEMATOLOGY Eosinophils 1.7 % 0.0 - 4.0 03/29/2015 [facility] HEMATOLOGY Monocytes 6.5 % 2.0 - 12.0 03/29/2015 [facility] HEMATOLOGY Segs-Bands # 4.0 K/CMM 1.5 - 8.1 03/29/2015 [facility] HEMATOLOGY Basophils 1.3 % 0.0 - 1.0 03/29/2015 [facility] HEMATOLOGY Lymphocytes 25.2 % 20.0 - 40.0 03/29/2015 [facility] HEMATOLOGY Basophils # 0.1 K/CMM 0.0 - 0.2 03/29/2015 [facility] HEMATOLOGY Eosinophils # 0.1 K/CMM 0.0 - 0.5 03/29/2015 [facility] HEMATOLOGY Monocytes # 0.4 K/CMM 0.0 - 0.8 03/29/2015 [facility] HEMATOLOGY Lymphocytes # 1.5 K/CMM 1.0 - 5.5 03/29/2015 [facility] HEMATOLOGY Segs 65.3 % 45.0 - 75.0 03/29/2015 [facility] HEMATOLOGY WBC 6.1 K/CMM 3.7 - 10.4 03/29/2015 [facility] HEMATOLOGY MCH 28.8 pg 27.0 - 31.0 03/29/2015 [facility] HEMATOLOGY MCV 87.8 fL 80.0 - 98.0 03/29/2015 [facility] HEMATOLOGY RDW 13.9 % 11.5 - 14.5 03/29/2015 [facility] MCHC 32.8 g/dL 32.0 - 36.0 03/29/2015 [facility] HEMATOLOGY Platelet 185 K/CMM 133 - 450 03/29/2015 [facility] HEMATOLOGY MPV 8.5 fL 7.4 - 10.4 03/29/2015 [facility] HEMATOLOGY RBC 4.47 M/CMM 4.20 - 5.40 03/29/2015 [facility] HEMATOLOGY Hgb 12.9 g/dL 12.0 - 16.0 03/29/2015 [facility] HEMATOLOGY Hct 39.2 % 36.0 - 48.0 03/29/2015 [facility] URINE AND STOOL UA Blood Small *ABN* (03/29/15 8:02 AM) Negative 03/29/2015 [facility] URINE AND STOOL UA Urobilinogen 0.2 EU/dL 0.1 - 1.0 03/29/2015 [facility] URINE AND STOOL UA Bili Negative *NA* (03/29/15 8:02 AM) Negative 03/29/2015 [facility] URINE AND STOOL UA Leuk Est Trace *ABN* (03/29/15 8:02 AM) Negative 03/29/2015 [facility] URINE AND STOOL UA Nitrite Negative (03/29/15 8:02 AM) Negative 03/29/2015 [facility] URINE AND STOOL UA pH 6.0 5.0 - 8.0 03/29/2015 [facility] URINE AND STOOL UA Turbidity Clear (03/29/15 8:02 AM) Clear 03/29/2015 [facility] URINE AND STOOL UA Spec Grav <=1.005
*NA*
(03/29/15 8:02 AM) <=1.030 03/29/2015 [facility] URINE AND STOOL UA Color Yellow *NA* (03/29/15 8:02 AM) Yellow 03/29/2015 [facility] URINE AND STOOL UA Protein Negative (03/29/15 8:02 AM) Negative 03/29/2015 [facility] URINE AND STOOL UA Glucose Negative (03/29/15 8:02 AM) Negative 03/29/2015 [facility] URINE AND STOOL UA Ketones Negative *NA* (03/29/15 8:02 AM) Negative 03/29/2015 [facility] URINE AND STOOL UA RBC 5 /HPF 0 - 2 03/29/2015 [facility] URINE AND STOOL UA Bacteria Few /HPF None Seen /HPF 03/29/2015 [facility] URINE AND STOOL UA WBC 2 /HPF 0 - 5 03/29/2015 [facility] URINE AND STOOL UA Sq Epi Many /LPF Few /LPF 03/29/2015 [facility] URINE CHEM U Preg Negative (03/29/15 8:02 AM) Negative 03/29/2015 [facility] Renal Stone CT Renal Stone CT PROCEDURE: Renal Stone CT REASON FOR EXAM: had hysterectomy 2 years ago, rule out renal colic, pyonephritis, renal calculi, hydroureter, hydronephrosis CLINICAL INFORMATION Flank Pain COMPARISON: 01/28/2015. 01/13/2015. 12/02/2013. ABDOMEN without IV contrast: Post cholecystectomy. No free air. Normal aortic caliber. Normal noncontrast evaluation of the inferior liver, spleen, adrenal glands, pancreas. At least 5 right-sided and 4 left-sided renal stones are identified. The largest on the right measures 4.8 mm, HU 566. There is no hydronephrosis or perinephric stranding. There is no ureterolithiasis. Hyperdense exophytic left renal lesion measures 5 mm, HU 41 and appears stable to 12/02/2013. PELVIS without IV contrast: No small bowel obstruction. Constipation. Normal appendix. Minimal free fluid in the lower pelvis. Normally distended bladder. IMPRESSION: 1. Bilateral nephrolithiasis, no ureterolithiasis or hydronephrosis. 2. Normal appendix, constipation. 3. Post cholecystectomy. 4. Stable hyperdense left renal lesion which may represent a proteinaceous cyst. Continued follow-up is advised to document stability and to help exclude the less likely possibility of a more aggressive process. DLP: 1145 mGy-cm SL: 13 03/29/2015 - - Read by: Bg Monge MD Dictated Date/time: 03/29/15 09:58 Electronically Signed by: Bg Monge MD 03/29/15 10:45 FINAL REPORT [facility] CHEM PANEL Lipase Lvl 186 unit/L 73 - 393 01/28/2015 [facility] CHEM PANEL A/G Ratio 1.1 0.7 - 1.6 01/28/2015 [facility] CHEM PANEL Globulin 3.2 g/dL 2.0 - 4.0 01/28/2015 [facility] CHEM PANEL B/C Ratio 19 6 - 25 01/28/2015 [facility] CHEM PANEL AGAP 11.7 meq/L 10.0 - 20.0 01/28/2015 [facility] CHEM PANEL Total Protein 6.8 g/dL 6.4 - 8.4 01/28/2015 [facility] CHEM PANEL eGFR 111 mL/min/1.73m2 01/28/2015 Result Comment: The eGFR is calculated using the CKD-EPI formula. In most young, healthy individuals the eGFR will be >90 mL/min/1.73m2. The eGFR declines with age. An eGFR of 60-89 may be normal in some populations, particularly the elderly, for whom the CKD-EPI formula has not been extensively validated. Use of the eGFR is not recommended in the following populations: Individuals with unstable creatinine concentrations, including patients and those with serious co-morbid conditions. Patients with extremes in muscle mass or diet. The data above are obtained from the National Kidney Disease Education Program (NKDEP) which additionally recommends that when the eGFR is used in patients with extremes of body mass index for purposes of drug dosing, the eGFR should be multiplied by the estimated BMI. [facility] CHEM PANEL Albumin Lvl 3.6 g/dL 3.5 - 5.0 01/28/2015 [facility] CHEM PANEL Creatinine Lvl 0.7 mg/dL 0.5 - 1.4 01/28/2015 [facility] CHEM PANEL Calcium Lvl 8.7 mg/dL 8.5 - 10.5 01/28/2015 [facility] CHEM PANEL Bili Total 0.6 mg/dL 0.2 - 1.3 01/28/2015 [facility] CHEM PANEL BUN 13 mg/dL 7 - 22 01/28/2015 [facility] CHEM PANEL Glucose Lvl 103 mg/dL 70 - 99 01/28/2015 [facility] CHEM PANEL CO2 23 meq/L 24 - 32 01/28/2015 [facility] CHEM PANEL AST 11 unit/L 0 - 37 01/28/2015 [facility] CHEM PANEL ALT 31 unit/L 0 - 65 01/28/2015 [facility] CHEM PANEL Sodium Lvl 140 meq/L 135 - 145 01/28/2015 [facility] CHEM PANEL Chloride Lvl 109 meq/L 95 - 109 01/28/2015 [facility] CHEM PANEL Potassium Lvl 3.7 meq/L 3.5 - 5.1 01/28/2015 [facility] CHEM PANEL Alk Phos 73 unit/L 39 - 136 01/28/2015 [facility] RBC 4.49 M/CMM 4.20 - 5.40 01/28/2015 [facility] HEMATOLOGY MCV 86.7 fL 80.0 - 98.0 01/28/2015 [facility] HEMATOLOGY Hgb 13.7 g/dL 12.0 - 16.0 01/28/2015 [facility] HEMATOLOGY MPV 8.2 fL 7.4 - 10.4 01/28/2015 [facility] MCHC 35.2 g/dL 32.0 - 36.0 01/28/2015 [facility] MCH 30.5 pg 27.0 - 31.0 01/28/2015 [facility] RDW 13.2 % 11.5 - 14.5 01/28/2015 [facility] Platelet 210 K/CMM 133 - 450 01/28/2015 [facility] WBC 6.1 K/CMM 3.7 - 10.4 01/28/2015 [facility] HEMATOLOGY Hct 38.9 % 36.0 - 48.0 01/28/2015 [facility] HEMATOLOGY Monocytes # 0.3 K/CMM 0.0 - 0.8 01/28/2015 [facility] HEMATOLOGY Eosinophils # 0.1 K/CMM 0.0 - 0.5 01/28/2015 [facility] HEMATOLOGY Basophils # 0.1 K/CMM 0.0 - 0.2 01/28/2015 [facility] HEMATOLOGY Segs-Bands # 4.1 K/CMM 1.5 - 8.1 01/28/2015 [facility] HEMATOLOGY Lymphocytes # 1.5 K/CMM 1.0 - 5.5 01/28/2015 [facility] HEMATOLOGY Segs 67.4 % 45.0 - 75.0 01/28/2015 [facility] HEMATOLOGY Lymphocytes 24.1 % 20.0 - 40.0 01/28/2015 [facility] HEMATOLOGY Monocytes 5.7 % 2.0 - 12.0 01/28/2015 [facility] HEMATOLOGY Basophils 1.0 % 0.0 - 1.0 01/28/2015 [facility] HEMATOLOGY Eosinophils 1.8 % 0.0 - 4.0 01/28/2015 [facility] URINE AND STOOL UA Mucus Few /LPF None Seen /LPF 01/28/2015 [facility] URINE AND STOOL UA Bacteria Occasional /HPF None Seen /HPF 01/28/2015 [facility] URINE AND STOOL UA RBC 4 /HPF 0 - 2 01/28/2015 [facility] URINE AND STOOL UA WBC 2 /HPF 0 - 5 01/28/2015 [facility] URINE AND STOOL UA Sq Epi Occasional /LPF Few /LPF 01/28/2015 [facility] URINE AND STOOL UA Nitrite Negative (01/28/15 8:46 AM) Negative 01/28/2015 [facility] URINE AND STOOL UA Leuk Est Negative (01/28/15 8:46 AM) Negative 01/28/2015 [facility] URINE AND STOOL UA Blood Small *ABN* (01/28/15 8:46 AM) Negative 01/28/2015 [facility] URINE AND STOOL UA Bili Negative *NA* (01/28/15 8:46 AM) Negative 01/28/2015 [facility] URINE AND STOOL UA Urobilinogen 0.2 EU/dL 0.1 - 1.0 01/28/2015 [facility] URINE AND STOOL UA Ketones Negative *NA* (01/28/15 8:46 AM) Negative 01/28/2015 [facility] URINE AND STOOL UA Glucose Negative (01/28/15 8:46 AM) Negative 01/28/2015 [facility] URINE AND STOOL UA Protein Negative (01/28/15 8:46 AM) Negative 01/28/2015 [facility] URINE AND STOOL UA pH 6.0 5.0 - 8.0 01/28/2015 [facility] URINE AND STOOL UA Spec Grav 1.020 <=1.030 01/28/2015 [facility] URINE AND STOOL UA Turbidity Clear (01/28/15 8:46 AM) Clear 01/28/2015 [facility] URINE AND STOOL UA Color Yellow *NA* (01/28/15 8:46 AM) Yellow 01/28/2015 [facility] URINE CHEM U Preg Negative (01/28/15 8:46 AM) Negative 01/28/2015 [facility] Abdomen/Pelvis wo IV contrast CT Abdomen/Pelvis wo IV contrast CT Examination: Renal stone protocol CT scan. HISTORY: Back pain TECHNIQUE: Multiple axial CT images of the abdomen and pelvis were obtained without the administration of intravenous contrast using the renal stone protocol. Multiplanar reformatted images were performed. COMPARISON: CT abdomen and pelvis from 01/13/2015 DLP: 782.09 FINDINGS: The lung bases are clear bilaterally. The kidneys are normal in size and morphology without hydronephrosis or perinephric stranding. Multiple calyceal stones varying in size from 2 mm to 5 mm throughout the bilateral kidneys are seen. No obstructing ureteral stones are noted. The bladder is well-distended. The patient is status post hysterectomy. Trace free fluid is present in the pelvis. The patient is status post cholecystectomy. The liver, pancreas, spleen, and adrenal glands are within the normal limits imposed by the lack of intravenous contrast. The visualized hollow viscera and appendix are unremarkable. No intraperitoneal free air or pathologic adenopathy is seen. Superficial soft tissues are unremarkable. 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 IMPRESSION: 1. Nonobstructive bilateral nephrolithiasis. SL: 16 01/28/2015 - - Read by: Mynor Myers MD Dictated Date/time: 01/28/15 11:36 Electronically Signed by: Mynor Myers MD 01/28/15 11:40 FINAL REPORT [facility] CHEM PANEL eGFR 82 mL/min/1.73m2 01/18/2015 Result Comment: The eGFR is calculated using the CKD-EPI formula. In most young, healthy individuals the eGFR will be >90 mL/min/1.73m2. The eGFR declines with age. An eGFR of 60-89 may be normal in some populations, particularly the elderly, for whom the CKD-EPI formula has not been extensively validated. Use of the eGFR is not recommended in the following populations: Individuals with unstable creatinine concentrations, including patients and those with serious co-morbid conditions. Patients with extremes in muscle mass or diet. The data above are obtained from the National Kidney Disease Education Program (NKDEP) which additionally recommends that when the eGFR is used in patients with extremes of body mass index for purposes of drug dosing, the eGFR should be multiplied by the estimated BMI. [facility] CHEM PANEL CO2 29 meq/L 24 - 32 01/18/2015 [facility] CHEM PANEL Calcium Lvl 8.6 mg/dL 8.5 - 10.5 01/18/2015 [facility] CHEM PANEL Chloride Lvl 104 meq/L 95 - 109 01/18/2015 [facility] CHEM PANEL Sodium Lvl 138 meq/L 135 - 145 01/18/2015 [facility] CHEM PANEL Potassium Lvl 4.3 meq/L 3.5 - 5.1 01/18/2015 [facility] CHEM PANEL Creatinine Lvl 0.9 mg/dL 0.5 - 1.4 01/18/2015 [facility] CHEM PANEL Glucose Lvl 93 mg/dL 70 - 99 01/18/2015 [facility] CHEM PANEL BUN 13 mg/dL 7 - 22 01/18/2015 [facility] CHEM PANEL AGAP 9.3 meq/L 10.0 - 20.0 01/18/2015 [facility] HEMATOLOGY Basophils # 0.1 K/CMM 0.0 - 0.2 01/18/2015 [facility] HEMATOLOGY Basophils 1.4 % 0.0 - 1.0 01/18/2015 [facility] HEMATOLOGY Eosinophils 1.9 % 0.0 - 4.0 01/18/2015 [facility] HEMATOLOGY Monocytes 6.4 % 2.0 - 12.0 01/18/2015 [facility] HEMATOLOGY Segs 61.9 % 45.0 - 75.0 01/18/2015 [facility] HEMATOLOGY Lymphocytes 28.4 % 20.0 - 40.0 01/18/2015 [facility] HEMATOLOGY Eosinophils # 0.1 K/CMM 0.0 - 0.5 01/18/2015 [facility] HEMATOLOGY Lymphocytes # 1.6 K/CMM 1.0 - 5.5 01/18/2015 [facility] HEMATOLOGY Monocytes # 0.4 K/CMM 0.0 - 0.8 01/18/2015 [facility] HEMATOLOGY Segs-Bands # 3.5 K/CMM 1.5 - 8.1 01/18/2015 [facility] MPV 8.4 fL 7.4 - 10.4 01/18/2015 [facility] HEMATOLOGY Platelet 199 K/CMM 133 - 450 01/18/2015 [facility] MCHC 34.6 g/dL 32.0 - 36.0 01/18/2015 [facility] HEMATOLOGY RDW 13.7 % 11.5 - 14.5 01/18/2015 [facility] MCH 30.3 pg 27.0 - 31.0 01/18/2015 [facility] Hct 41.2 % 36.0 - 48.0 01/18/2015 [facility] MCV 87.8 fL 80.0 - 98.0 01/18/2015 [facility] Hgb 14.2 g/dL 12.0 - 16.0 01/18/2015 [facility] HEMATOLOGY RBC 4.69 M/CMM 4.20 - 5.40 01/18/2015 [facility] HEMATOLOGY WBC 5.6 K/CMM 3.7 - 10.4 01/18/2015 [facility] URINE AND STOOL UA Urobilinogen <=1.0 mg/dL 0.1 - 1.0 01/18/2015 [facility] URINE AND STOOL UA RBC 4 /HPF 0 - 2 01/18/2015 [facility] URINE AND STOOL UA WBC 2 /HPF 0 - 5 01/18/2015 [facility] URINE AND STOOL UA pH 7.0 5.0 - 8.0 01/18/2015 [facility] URINE AND STOOL UA Spec Grav 1.005 <=1.030 01/18/2015 [facility] URINE AND STOOL UA Glucose Negative mg/dL Negative mg/dL 01/18/2015 [facility] URINE AND STOOL UA Ketones Negative mg/dL Negative mg/dL 01/18/2015 [facility] URINE AND STOOL UA Turbidity Clear (01/18/15 8:57 AM) Clear 01/18/2015 [facility] URINE AND STOOL UA Protein Negative mg/dL Negative mg/dL 01/18/2015 [facility] URINE AND STOOL UA Color Yellow *NA* (01/18/15 8:57 AM) Yellow 01/18/2015 [facility] URINE AND STOOL UA Sq Epi Occasional /LPF Few /LPF 01/18/2015 [facility] URINE AND STOOL UA Blood Negative (01/18/15 8:57 AM) Negative 01/18/2015 [facility] URINE AND STOOL UA Leuk Est Negative (01/18/15 8:57 AM) Negative 01/18/2015 [facility] URINE AND STOOL UA Bili Negative *NA* (01/18/15 8:57 AM) Negative 01/18/2015 [facility] URINE AND STOOL UA Nitrite Negative (01/18/15 8:57 AM) Negative 01/18/2015 [facility] URINE CHEM U Preg Negative (01/18/15 8:57 AM) Negative 01/18/2015 [facility] CHEM PANEL Amylase Lvl 76 unit/L 25 - 115 01/13/2015 [facility] CHEM PANEL Lipase Lvl 251 unit/L 73 - 393 01/13/2015 [facility] ELECTROLYTES Chloride Lvl 111 meq/L 95 - 109 01/13/2015 [facility] ELECTROLYTES Potassium Lvl 4.1 meq/L 3.5 - 5.1 01/13/2015 [facility] ELECTROLYTES Sodium Lvl 141 meq/L 135 - 145 01/13/2015 [facility] ELECTROLYTES eGFR 82 mL/min/1.73m2 01/13/2015 Result Comment: The eGFR is calculated using the CKD-EPI formula. In most young, healthy individuals the eGFR will be >90 mL/min/1.73m2. The eGFR declines with age. An eGFR of 60-89 may be normal in some populations, particularly the elderly, for whom the CKD-EPI formula has not been extensively validated. Use of the eGFR is not recommended in the following populations: Individuals with unstable creatinine concentrations, including patients and those with serious co-morbid conditions. Patients with extremes in muscle mass or diet. The data above are obtained from the National Kidney Disease Education Program (NKDEP) which additionally recommends that when the eGFR is used in patients with extremes of body mass index for purposes of drug dosing, the eGFR should be multiplied by the estimated BMI. [facility] ELECTROLYTES ALT 17 unit/L 0 - 65 01/13/2015 [facility] ELECTROLYTES Creatinine Lvl 0.9 mg/dL 0.5 - 1.4 01/13/2015 [facility] ELECTROLYTES CO2 21 meq/L 24 - 32 01/13/2015 [facility] ELECTROLYTES BUN 12 mg/dL 7 - 22 01/13/2015 [facility] ELECTROLYTES Calcium Lvl 8.2 mg/dL 8.5 - 10.5 01/13/2015 [facility] ELECTROLYTES Albumin Lvl 3.5 g/dL 3.5 - 5.0 01/13/2015 [facility] ELECTROLYTES Total Protein 6.6 g/dL 6.4 - 8.4 01/13/2015 [facility] ELECTROLYTES AST 8 unit/L 0 - 37 01/13/2015 [facility] ELECTROLYTES Alk Phos 64 unit/L 39 - 136 01/13/2015 [facility] ELECTROLYTES Bili Total 0.4 mg/dL 0.2 - 1.3 01/13/2015 [facility] ELECTROLYTES Glucose Lvl 96 mg/dL 70 - 99 01/13/2015 [facility] ELECTROLYTES Globulin 3.1 g/dL 2.0 - 4.0 01/13/2015 [facility] ELECTROLYTES A/G Ratio 1.1 0.7 - 1.6 01/13/2015 [facility] ELECTROLYTES B/C Ratio 13 6 - 25 01/13/2015 [facility] ELECTROLYTES AGAP 13.1 meq/L 10.0 - 20.0 01/13/2015 [facility] HEMATOLOGY Hct 39.6 % 36.0 - 48.0 01/13/2015 [facility] HEMATOLOGY RDW 14.2 % 11.5 - 14.5 01/13/2015 [facility] HEMATOLOGY Platelet 214 K/CMM 133 - 450 01/13/2015 [facility] HEMATOLOGY MPV 8.2 fL 7.4 - 10.4 01/13/2015 [facility] HEMATOLOGY MCV 87.2 fL 80.0 - 98.0 01/13/2015 [facility] MCH 29.7 pg 27.0 - 31.0 01/13/2015 [facility] MCHC 34.1 g/dL 32.0 - 36.0 01/13/2015 [facility] HEMATOLOGY WBC 5.8 K/CMM 3.7 - 10.4 01/13/2015 [facility] HEMATOLOGY Hgb 13.5 g/dL 12.0 - 16.0 01/13/2015 [facility] RBC 4.54 M/CMM 4.20 - 5.40 01/13/2015 [facility] HEMATOLOGY Monocytes # 0.3 K/CMM 0.0 - 0.8 01/13/2015 [facility] HEMATOLOGY Basophils # 0.1 K/CMM 0.0 - 0.2 01/13/2015 [facility] HEMATOLOGY Eosinophils # 0.1 K/CMM 0.0 - 0.5 01/13/2015 [facility] HEMATOLOGY Segs-Bands # 3.8 K/CMM 1.5 - 8.1 01/13/2015 [facility] HEMATOLOGY Basophils 0.9 % 0.0 - 1.0 01/13/2015 [facility] HEMATOLOGY Lymphocytes # 1.4 K/CMM 1.0 - 5.5 01/13/2015 [facility] HEMATOLOGY Eosinophils 1.8 % 0.0 - 4.0 01/13/2015 [facility] HEMATOLOGY Monocytes 6.0 % 2.0 - 12.0 01/13/2015 [facility] HEMATOLOGY Segs 66.6 % 45.0 - 75.0 01/13/2015 [facility] HEMATOLOGY Lymphocytes 24.7 % 20.0 - 40.0 01/13/2015 [facility] URINE AND STOOL UA Urobilinogen <=1.0 mg/dL 0.1 - 1.0 01/13/2015 [facility] URINE AND STOOL UA Color Ltyellow 01/13/2015 [facility] URINE AND STOOL UA Protein Negative mg/dL Negative mg/dL 01/13/2015 [facility] URINE AND STOOL UA Glucose Negative mg/dL Negative mg/dL 01/13/2015 [facility] URINE AND STOOL UA Blood Small *ABN* (01/13/15 8:38 AM) Negative 01/13/2015 [facility] URINE AND STOOL UA Bili Negative *NA* (01/13/15 8:38 AM) Negative 01/13/2015 [facility] URINE AND STOOL UA Ketones Negative mg/dL Negative mg/dL 01/13/2015 [facility] URINE AND STOOL UA pH 6.0 5.0 - 8.0 01/13/2015 [facility] URINE AND STOOL UA Spec Grav 1.005 <=1.030 01/13/2015 [facility] URINE AND STOOL UA Turbidity Clear (01/13/15 8:38 AM) Clear 01/13/2015 [facility] URINE AND STOOL UA Nitrite Negative (01/13/15 8:38 AM) Negative 01/13/2015 [facility] URINE AND STOOL UA Leuk Est Moderate *ABN* (01/13/15 8:38 AM) Negative 01/13/2015 [facility] URINE AND STOOL UA Sq Epi Occasional /LPF Few /LPF 01/13/2015 [facility] URINE AND STOOL UA WBC 31 /HPF 0 - 5 01/13/2015 [facility] URINE AND STOOL UA RBC 4 /HPF 0 - 2 01/13/2015 [facility] URINE AND STOOL UA Bacteria Occasional /HPF None Seen /HPF 01/13/2015 [facility] URINE CHEM U Preg Negative (01/13/15 8:38 AM) Negative 01/13/2015 [facility] ED Abdomen/Pelvis IV contrast only CT ED Abdomen/Pelvis IV contrast only CT CT Abdomen with Contrast, CT Pelvis with Contrast: TECHNIQUE: Contiguous transaxial images of the abdomen and pelvis were performed from the lung bases to the superior pubic rami with IV contrast. Oral contrast was not administered COMPARISON: 12/02/2013 CLINICAL HX: Abdomen pain CT ABDOMEN: Lower Chest: Minimal basilar atelectasis. GI Tract: Appendix demonstrates normal morphology. Small, supraumbilical, ventral abdominal hernia containing mesenteric fat. No bowel involvement. There is no evidence for free fluid or free air in the abdomen. Tract and retroperitoneum: The kidneys demonstrate normal morphology and symmetric excretion. 3 mm nonobstructing calyceal calculus midportion of right kidney with additional 1 to 2 mm calculi noted in the lower pole of right kidney.. 2 mm calyceal calculus, lower pole of left kidney. No hydronephrosis. No significant retroperitoneal lymphadenopathy is noted. Abdominal viscera: The liver, spleen, pancreas, and both adrenals demonstrate normal morphology. Status post cholecystectomy Vasculature: Aorta demonstrates normal morphology. Bone and Soft tissues: No significant bony abnormality is noted. CT PELVIS: The bladder demonstrates normal morphology. The uterus is not visualized suggesting hysterectomy. No gross adnexal mass is evident.. No free fluid is present in the pelvis. IMPRESSION: Bilateral nephrolithiasis. No distal obstructing ureteric calculus. No hydronephrosis. Small umbilical hernia containing mesenteric fat. No other significant abnormality is noted on the contrast CT of the abdomen or pelvis. SL:13 01/13/2015 - - Read by: Jourdan De Leon MD Dictated Date/time: 01/13/15 11:11 Electronically Signed by: Jourdan De Leon MD 01/13/15 11:20 FINAL REPORT [facility] CHEM PANEL eGFR 83 mL/min/1.73m2 11/21/2014 1Result Comment: The eGFR is calculated using the CKD-EPI formula. In most young, healthy individuals the eGFR will be >90 mL/min/1.73m2. The eGFR declines with age. An eGFR of 60-89 may be normal in some populations, particularly the elderly, for whom the CKD-EPI formula has not been extensively validated. Use of the eGFR is not recommended in the following populations: Individuals with unstable creatinine concentrations, including patients and those with serious co-morbid conditions. Patients with extremes in muscle mass or diet. The data above are obtained from the National Kidney Disease Education Program (NKDEP) which additionally recommends that when the eGFR is used in patients with extremes of body mass index for purposes of drug dosing, the eGFR should be multiplied by the estimated BMI. [facility] CHEM PANEL Total Protein 7.2 g/dL 6.4 - 8.4 11/21/2014 [facility] CHEM PANEL Calcium Lvl 8.1 mg/dL 8.5 - 10.5 11/21/2014 [facility] CHEM PANEL CO2 23 meq/L 24 - 32 11/21/2014 [facility] CHEM PANEL AST 12 unit/L 0 - 37 11/21/2014 [facility] CHEM PANEL ALT 19 unit/L 0 - 65 11/21/2014 [facility] CHEM PANEL Albumin Lvl 3.8 g/dL 3.5 - 5.0 11/21/2014 [facility] CHEM PANEL Bili Total 0.8 mg/dL 0.2 - 1.3 11/21/2014 [facility] CHEM PANEL Alk Phos 77 unit/L 39 - 136 11/21/2014 [facility] CHEM PANEL Glucose Lvl 93 mg/dL 70 - 99 11/21/2014 2Interpretive Data: Adult reference range values reflect the clinical guidelines of the [place] [employer]. [facility] CHEM PANEL BUN 15 mg/dL 7 - 22 11/21/2014 [facility] CHEM PANEL Creatinine Lvl 0.9 mg/dL 0.5 - 1.4 11/21/2014 [facility] CHEM PANEL Potassium Lvl 4.1 meq/L 3.5 - 5.1 11/21/2014 [facility] CHEM PANEL Sodium Lvl 139 meq/L 135 - 145 11/21/2014 [facility] CHEM PANEL Chloride Lvl 107 meq/L 95 - 109 11/21/2014 [facility] CHEM PANEL A/G Ratio 1.1 0.7 - 1.6 11/21/2014 [facility] CHEM PANEL AGAP 13.1 meq/L 10.0 - 20.0 11/21/2014 [facility] CHEM PANEL B/C Ratio 17 6 - 25 11/21/2014 [facility] CHEM PANEL Globulin 3.4 g/dL 2.0 - 4.0 11/21/2014 [facility] HEMATOLOGY Hct 41.8 % 36.0 - 48.0 11/21/2014 [facility] HEMATOLOGY RBC 4.84 M/CMM 4.20 - 5.40 11/21/2014 [facility] Hgb 14.7 g/dL 12.0 - 16.0 11/21/2014 [facility] HEMATOLOGY MPV 8.6 fL 7.4 - 10.4 11/21/2014 [facility] HEMATOLOGY WBC 6.2 K/CMM 3.7 - 10.4 11/21/2014 [facility] MCH 30.4 pg 27.0 - 31.0 11/21/2014 [facility] MCV 86.2 fL 80.0 - 98.0 11/21/2014 [facility] RDW 14.3 % 11.5 - 14.5 11/21/2014 [facility] Platelet 203 K/CMM 133 - 450 11/21/2014 [facility] MCHC 35.3 g/dL 32.0 - 36.0 11/21/2014 [facility] HEMATOLOGY Eosinophils # 0.1 K/CMM 0.0 - 0.5 11/21/2014 [facility] HEMATOLOGY Monocytes # 0.4 K/CMM 0.0 - 0.8 11/21/2014 [facility] HEMATOLOGY Lymphocytes # 1.7 K/CMM 1.0 - 5.5 11/21/2014 [facility] Monocytes 7.0 % 2.0 - 12.0 11/21/2014 [facility] HEMATOLOGY Segs 63.7 % 45.0 - 75.0 11/21/2014 [facility] Lymphocytes 26.9 % 20.0 - 40.0 11/21/2014 [facility] HEMATOLOGY Basophils 1.0 % 0.0 - 1.0 11/21/2014 [facility] HEMATOLOGY Segs-Bands # 4.0 K/CMM 1.5 - 8.1 11/21/2014 [facility] HEMATOLOGY Eosinophils 1.4 % 0.0 - 4.0 11/21/2014 [facility] HEMATOLOGY Basophils # 0.1 K/CMM 0.0 - 0.2 11/21/2014 [facility] URINE AND STOOL UA Urobilinogen <=1.0 mg/dL 0.1 - 1.0 11/21/2014 [facility] URINE AND STOOL UA Color Ltyellow 11/21/2014 [facility] URINE AND STOOL UA Leuk Est Small *ABN* (11/21/14 12:00 PM) Negative 11/21/2014 [facility] URINE AND STOOL UA Blood Small *ABN* (11/21/14 12:00 PM) Negative 11/21/2014 [facility] URINE AND STOOL UA Sq Epi Few /LPF Few /LPF 11/21/2014 [facility] URINE AND STOOL UA Nitrite Negative (11/21/14 12:00 PM) Negative 11/21/2014 [facility] URINE AND STOOL UA Bacteria Few /HPF None Seen /HPF 11/21/2014 [facility] URINE AND STOOL UA WBC 14 /HPF 0 - 5 11/21/2014 [facility] URINE AND STOOL UA Mucus Few /LPF None Seen /LPF 11/21/2014 [facility] URINE AND STOOL UA RBC 6 /HPF 0 - 2 11/21/2014 [facility] URINE AND STOOL UA pH 6.0 5.0 - 8.0 11/21/2014 [facility] URINE AND STOOL UA Turbidity Clear (11/21/14 12:00 PM) Clear 11/21/2014 [facility] URINE AND STOOL UA Spec Grav 1.010 <=1.030 11/21/2014 [facility] URINE AND STOOL UA Ketones Negative mg/dL Negative mg/dL 11/21/2014 [facility] URINE AND STOOL UA Bili Negative *NA* (11/21/14 12:00 PM) Negative 11/21/2014 [facility] URINE AND STOOL UA Protein Negative mg/dL Negative mg/dL 11/21/2014 [facility] URINE AND STOOL UA Glucose Negative mg/dL Negative mg/dL 11/21/2014 [facility] URINE CHEM U Preg Negative (11/21/14 12:00 PM) Negative 11/21/2014 [facility] Abdomen AP DX Abdomen AP DX Examination: Abdomen, 2 views History: Flank Pain Comparison: CT abdomen and pelvis from 12/02/2013. Findings: Two views of the abdomen show a nonobstructive bowel gas pattern. Linear 4 mm calcification projects over the right renal shadow, compatible with stone. Surgical clips in the right upper quadrant are seen. Osseous structures are unremarkable. IMPRESSION: Right nephrolithiasis. SL: 16 11/21/2014 - - Read by: Mynro Myers MD Dictated Date/time: 11/21/14 14:30 Electronically Signed by: Mynor Myers MD 11/21/14 14:31 FINAL REPORT [facility] CHEM PANEL BUN 16 mg/dL 7 - 22 09/09/2014 [facility] CHEM PANEL Calcium Lvl 8.3 mg/dL 8.5 - 10.5 09/09/2014 [facility] CHEM PANEL Glucose Lvl 117 mg/dL 70 - 99 09/09/2014 2Interpretive Data: Adult reference range values reflect the clinical guidelines of the [place] [employer]. [facility] CHEM PANEL Creatinine Lvl 1.1 mg/dL 0.5 - 1.4 09/09/2014 [facility] CHEM PANEL CO2 24 meq/L 24 - 32 09/09/2014 [facility] CHEM PANEL Potassium Lvl 3.8 meq/L 3.5 - 5.1 09/09/2014 [facility] CHEM PANEL Chloride Lvl 108 meq/L 95 - 109 09/09/2014 [facility] CHEM PANEL Sodium Lvl 139 meq/L 135 - 145 09/09/2014 [facility] CHEM PANEL eGFR 65 mL/min/1.73m2 09/09/2014 1Result Comment: The eGFR is calculated using the CKD-EPI formula. In most young, healthy individuals the eGFR will be >90 mL/min/1.73m2. The eGFR declines with age. An eGFR of 60-89 may be normal in some populations, particularly the elderly, for whom the CKD-EPI formula has not been extensively validated. Use of the eGFR is not recommended in the following populations: Individuals with unstable creatinine concentrations, including patients and those with serious co-morbid conditions. Patients with extremes in muscle mass or diet. The data above are obtained from the National Kidney Disease Education Program (NKDEP) which additionally recommends that when the eGFR is used in patients with extremes of body mass index for purposes of drug dosing, the eGFR should be multiplied by the estimated BMI. [facility] CHEM PANEL AGAP 10.8 meq/L 10.0 - 20.0 09/09/2014 [facility] HEMATOLOGY Platelet 215 K/CMM 133 - 450 09/09/2014 [facility] HEMATOLOGY RDW 13.8 % 11.5 - 14.5 09/09/2014 [facility] HEMATOLOGY MCV 87.7 fL 80.0 - 98.0 09/09/2014 [facility] HEMATOLOGY Hct 39.9 % 36.0 - 48.0 09/09/2014 [facility] HEMATOLOGY Hgb 13.5 g/dL 12.0 - 16.0 09/09/2014 [facility] HEMATOLOGY WBC 5.8 K/CMM 3.7 - 10.4 09/09/2014 [facility] HEMATOLOGY RBC 4.55 M/CMM 4.20 - 5.40 09/09/2014 [facility] HEMATOLOGY MPV 8.2 fL 7.4 - 10.4 09/09/2014 [facility] MCHC 33.7 g/dL 32.0 - 36.0 09/09/2014 [facility] MCH 29.6 pg 27.0 - 31.0 09/09/2014 [facility] HEMATOLOGY Basophils # 0.1 K/CMM 0.0 - 0.2 09/09/2014 [facility] HEMATOLOGY Eosinophils # 0.2 K/CMM 0.0 - 0.5 09/09/2014 [facility] HEMATOLOGY Lymphocytes # 1.5 K/CMM 1.0 - 5.5 09/09/2014 [facility] HEMATOLOGY Monocytes # 0.2 K/CMM 0.0 - 0.8 09/09/2014 [facility] HEMATOLOGY Monocytes 3.6 % 2.0 - 12.0 09/09/2014 [facility] HEMATOLOGY Segs 67.1 % 45.0 - 75.0 09/09/2014 [facility] HEMATOLOGY Lymphocytes 25.8 % 20.0 - 40.0 09/09/2014 [facility] HEMATOLOGY Basophils 0.9 % 0.0 - 1.0 09/09/2014 [facility] HEMATOLOGY Segs-Bands # 3.9 K/CMM 1.5 - 8.1 09/09/2014 [facility] HEMATOLOGY Eosinophils 2.6 % 0.0 - 4.0 09/09/2014 [facility] URINE AND STOOL UA Sq Epi Few /LPF Few /LPF 09/09/2014 [facility] URINE AND STOOL UA WBC 50 /HPF 0 - 5 09/09/2014 [facility] URINE AND STOOL UA RBC 4 /HPF 0 - 2 09/09/2014 [facility] URINE AND STOOL UA Nitrite Negative (09/09/14 8:21 AM) Negative 09/09/2014 [facility] URINE AND STOOL UA Leuk Est Moderate *ABN* (09/09/14 8:21 AM) Negative 09/09/2014 [facility] URINE AND STOOL UA Blood Negative (09/09/14 8:21 AM) Negative 09/09/2014 [facility] URINE AND STOOL UA Color Ltyellow 09/09/2014 [facility] URINE AND STOOL UA Urobilinogen <=1.0 mg/dL 0.1 - 1.0 09/09/2014 [facility] URINE AND STOOL UA pH 6.0 5.0 - 8.0 09/09/2014 [facility] URINE AND STOOL UA Glucose Negative mg/dL Negative mg/dL 09/09/2014 [facility] URINE AND STOOL UA Turbidity Slight *ABN* (09/09/14 8:21 AM) Clear 09/09/2014 [facility] URINE AND STOOL UA Spec Grav 1.014 <=1.030 09/09/2014 [facility] URINE AND STOOL UA Ketones Negative mg/dL Negative mg/dL 09/09/2014 [facility] URINE AND STOOL UA Bili Negative *NA* (09/09/14 8:21 AM) Negative 09/09/2014 [facility] URINE AND STOOL UA Protein Negative mg/dL Negative mg/dL 09/09/2014 [facility] ELECTROLYTES AGAP 12.1 meq/L 10.0 - 20.0 12/03/2013 [facility] ELECTROLYTES eGFR 73 mL/min/1.73m2 12/03/2013 1Result Comment: The eGFR is calculated using the CKD-EPI formula. In most young, healthy individuals the eGFR will be >90 mL/min/1.73m2. The eGFR declines with age. An eGFR of 60-89 may be normal in some populations, particularly the elderly, for whom the CKD-EPI formula has not been extensively validated. Use of the eGFR is not recommended in the following populations: Individuals with unstable creatinine concentrations, including patients and those with serious co-morbid conditions. Patients with extremes in muscle mass or diet. The data above are obtained from the National Kidney Disease Education Program (NKDEP) which additionally recommends that when the eGFR is used in patients with extremes of body mass index for purposes of drug dosing, the eGFR should be multiplied by the estimated BMI. [facility] ELECTROLYTES Calcium Lvl 8.3 mg/dL 8.5 - 10.5 12/03/2013 [facility] ELECTROLYTES Potassium Lvl 4.1 meq/L 3.5 - 5.1 12/03/2013 [facility] ELECTROLYTES Chloride Lvl 105 meq/L 95 - 109 12/03/2013 [facility] ELECTROLYTES Sodium Lvl 139 meq/L 135 - 145 12/03/2013 [facility] ELECTROLYTES Creatinine Lvl 1.0 mg/dL 0.5 - 1.4 12/03/2013 [facility] ELECTROLYTES Glucose Lvl 88 mg/dL 70 - 99 12/03/2013 3Interpretive Data: Adult reference range values reflect the clinical guidelines of the [place] [employer]. [facility] ELECTROLYTES BUN 13 mg/dL 7 - 22 12/03/2013 [facility] ELECTROLYTES CO2 26 meq/L 24 - 32 12/03/2013 [facility] HEMATOLOGY Platelet 198 K/CMM 133 - 450 12/03/2013 [facility] MPV 8.2 fL 7.4 - 10.4 12/03/2013 [facility] MCH 29.4 pg 27.0 - 31.0 12/03/2013 [facility] MCHC 34.1 g/dL 32.0 - 36.0 12/03/2013 [facility] RDW 13.8 % 11.5 - 14.5 12/03/2013 [facility] Hgb 11.8 g/dL 12.0 - 16.0 12/03/2013 [facility] Hct 34.6 % 36.0 - 48.0 12/03/2013 [facility] MCV 86.3 fL 81.0 - 99.0 12/03/2013 [facility] RBC 4.01 M/CMM 4.20 - 5.40 12/03/2013 [facility] WBC 5.7 K/CMM 3.7 - 10.4 12/03/2013 [facility] Monocytes # 0.4 K/CMM 0.0 - 0.8 12/03/2013 [facility] Segs-Bands # 2.9 K/CMM 1.5 - 8.1 12/03/2013 [facility] Lymphocytes # 2.2 K/CMM 1.0 - 5.5 12/03/2013 [facility] Eosinophils 3.0 % 0.0 - 4.0 12/03/2013 [facility] HEMATOLOGY Basophils 0.9 % 0.0 - 1.0 12/03/2013 [facility] Lymphocytes 38.0 % 20.0 - 40.0 12/03/2013 [facility] Monocytes 7.9 % 2.0 - 12.0 12/03/2013 [facility] HEMATOLOGY Segs 50.2 % 45.0 - 75.0 12/03/2013 [facility] Eosinophils # 0.2 K/CMM 0.0 - 0.5 12/03/2013 [facility] HEMATOLOGY Basophils # 0.1 K/CMM 0.0 - 0.2 12/03/2013 [facility] CARDIAC ENZYMES Total CK 55 unit/L 12 - 191 12/02/2013 [facility] CARDIAC ENZYMES Troponin-I null 0.00 - 0.40 12/02/2013 [facility] URINE AND STOOL UA Sq Epi Few /LPF Few /LPF 12/02/2013 [facility] URINE AND STOOL UA Color Ltyellow 12/02/2013 [facility] URINE AND STOOL UA Urobilinogen <=1.0 mg/dL 0.1 - 1.0 12/02/2013 [facility] URINE AND STOOL UA Mucus Few /LPF None Seen /LPF 12/02/2013 [facility] URINE AND STOOL UA RBC 7 /HPF 0 - 2 12/02/2013 [facility] URINE AND STOOL UA WBC 8 /HPF 0 - 5 12/02/2013 [facility] URINE AND STOOL UA Bacteria Occasional /HPF None Seen /HPF 12/02/2013 [facility] URINE AND STOOL UA Ketones Negative mg/dL Negative mg/dL 12/02/2013 [facility] URINE AND STOOL UA Glucose Negative mg/dL Negative mg/dL 12/02/2013 [facility] URINE AND STOOL UA Blood Large *ABN* (12/02/13 8:23 AM) Negative 12/02/2013 [facility] URINE AND STOOL UA Bili Negative *NA* (12/02/13 8:23 AM) Negative 12/02/2013 [facility] URINE AND STOOL UA pH 6.0 5.0 - 8.0 12/02/2013 [facility] URINE AND STOOL UA Spec Grav 1.011 <=1.030 12/02/2013 [facility] URINE AND STOOL UA Protein Negative mg/dL Negative mg/dL 12/02/2013 [facility] URINE AND STOOL UA Nitrite Negative (12/02/13 8:23 AM) Negative 12/02/2013 [facility] URINE AND STOOL UA Leuk Est Trace *ABN* (12/02/13 8:23 AM) Negative 12/02/2013 [facility] URINE AND STOOL UA Turbidity Slight *ABN* (12/02/13 8:23 AM) Clear 12/02/2013 [facility] URINE CHEM U Preg Negative (12/02/13 8:23 AM) Negative 12/02/2013 [facility] CARDIAC ENZYMES CK MB Index 1.0 0.0 - 2.5 12/02/2013 [facility] CARDIAC ENZYMES Total CK 58 unit/L 12 - 191 12/02/2013 [facility] CARDIAC ENZYMES CK MB 0.6 ng/mL 0.5 - 3.6 12/02/2013 [facility] CARDIAC ENZYMES Troponin-I null 0.00 - 0.40 12/02/2013 [facility] CHEM PANEL A/G Ratio 1.2 0.7 - 1.6 12/02/2013 [facility] CHEM PANEL AGAP 11.8 meq/L 10.0 - 20.0 12/02/2013 [facility] CHEM PANEL B/C Ratio 12 6 - 25 12/02/2013 [facility] CHEM PANEL Globulin 3.1 g/dL 2.0 - 4.0 12/02/2013 [facility] CHEM PANEL eGFR 95 mL/min/1.73m2 12/02/2013 2Result Comment: The eGFR is calculated using the CKD-EPI formula. In most young, healthy individuals the eGFR will be >90 mL/min/1.73m2. The eGFR declines with age. An eGFR of 60-89 may be normal in some populations, particularly the elderly, for whom the CKD-EPI formula has not been extensively validated. Use of the eGFR is not recommended in the following populations: Individuals with unstable creatinine concentrations, including patients and those with serious co-morbid conditions. Patients with extremes in muscle mass or diet. The data above are obtained from the National Kidney Disease Education Program (NKDEP) which additionally recommends that when the eGFR is used in patients with extremes of body mass index for purposes of drug dosing, the eGFR should be multiplied by the estimated BMI. [facility] CHEM PANEL Chloride Lvl 105 meq/L 95 - 109 12/02/2013 [facility] CHEM PANEL CO2 24 meq/L 24 - 32 12/02/2013 [facility] CHEM PANEL Calcium Lvl 8.5 mg/dL 8.5 - 10.5 12/02/2013 [facility] CHEM PANEL ALT 26 unit/L 0 - 65 12/02/2013 [facility] CHEM PANEL AST 13 unit/L 0 - 37 12/02/2013 [facility] CHEM PANEL Total Protein 6.8 g/dL 6.4 - 8.4 12/02/2013 [facility] CHEM PANEL Albumin Lvl 3.7 g/dL 3.5 - 5.0 12/02/2013 [facility] CHEM PANEL Potassium Lvl 3.8 meq/L 3.5 - 5.1 12/02/2013 [facility] CHEM PANEL Alk Phos 69 unit/L 39 - 136 12/02/2013 [facility] CHEM PANEL Bili Total 0.4 mg/dL 0.2 - 1.3 12/02/2013 [facility] CHEM PANEL Creatinine Lvl 0.8 mg/dL 0.5 - 1.4 12/02/2013 [facility] CHEM PANEL Sodium Lvl 137 meq/L 135 - 145 12/02/2013 [facility] CHEM PANEL Glucose Lvl 98 mg/dL 70 - 99 12/02/2013 4Interpretive Data: Adult reference range values reflect the clinical guidelines of the [place] [employer]. [facility] CHEM PANEL BUN 10 mg/dL 7 - 22 12/02/2013 [facility] HEMATOLOGY RDW 13.8 % 11.5 - 14.5 12/02/2013 [facility] MPV 8.5 fL 7.4 - 10.4 12/02/2013 [facility] Platelet 222 K/CMM 133 - 450 12/02/2013 [facility] MCHC 34.1 g/dL 32.0 - 36.0 12/02/2013 [facility] MCV 85.8 fL 81.0 - 99.0 12/02/2013 [facility] Hct 37.2 % 36.0 - 48.0 12/02/2013 [facility] MCH 29.3 pg 27.0 - 31.0 12/02/2013 [facility] Hgb 12.7 g/dL 12.0 - 16.0 12/02/2013 [facility] RBC 4.34 M/CMM 4.20 - 5.40 12/02/2013 [facility] WBC 5.2 K/CMM 3.7 - 10.4 12/02/2013 [facility] Eosinophils 2.7 % 0.0 - 4.0 12/02/2013 [facility] Monocytes 6.3 % 2.0 - 12.0 12/02/2013 [facility] HEMATOLOGY Basophils 1.0 % 0.0 - 1.0 12/02/2013 [facility] Lymphocytes 30.0 % 20.0 - 40.0 12/02/2013 [facility] Segs 60.0 % 45.0 - 75.0 12/02/2013 [facility] Lymphocytes # 1.6 K/CMM 1.0 - 5.5 12/02/2013 [facility] Segs-Bands # 3.1 K/CMM 1.5 - 8.1 12/02/2013 [facility] Basophils # 0.1 K/CMM 0.0 - 0.2 12/02/2013 [facility] HEMATOLOGY Monocytes # 0.3 K/CMM 0.0 - 0.8 12/02/2013 [facility] HEMATOLOGY Eosinophils # 0.1 K/CMM 0.0 - 0.5 12/02/2013 [facility] IMMUNOLOGY CDC HIV 4th GEN Negative (12/02/13 8:14 AM) Negative 12/02/2013 [facility] CHEMISTRY U Preg Negative (08/12/2012 20:11:40) Negative 08/13/2012 Normal [facility] CHEMISTRY Bili Direct 0.1 mg/dL 0.0 - 0.3 08/13/2012 Normal [facility] CHEMISTRY Lipase Lvl 156 unit/L 73 - 393 08/13/2012 Normal [facility] CHEMISTRY eGFR 96 mL/min/1.73m2 08/13/2012 NA 1Result Comment: The eGFR is calculated using the CKD-EPI formula. In most young, healthy individuals the eGFR will be >90 mL/min/1.73m2. The eGFR declines with age. An eGFR of 60-89 may be normal in some populations, particularly the elderly, for whom the CKD-EPI formula has not been extensively validated. Use of the eGFR is not recommended in the following populations: Individuals with unstable creatinine concentrations, including patients and those with serious co-morbid conditions. Patients with extremes in muscle mass or diet. The data above are obtained from the National Kidney Disease Education Program (NKDEP) which additionally recommends that when the eGFR is used in patients with extremes of body mass index for purposes of drug dosing, the eGFR should be multiplied by the estimated BMI. [facility] CHEMISTRY BUN 13 mg/dL 7 - 22 08/13/2012 Normal [facility] CHEMISTRY Glucose Lvl 87 mg/dL 70 - 99 08/13/2012 Normal 2Interpretive Data: Adult reference range values reflect the clinical guidelines of the [place] [employer]. [facility] CHEMISTRY Sodium Lvl 142 meq/L 135 - 145 08/13/2012 Normal [facility] CHEMISTRY Creatinine Lvl 0.8 mg/dL 0.5 - 1.4 08/13/2012 Normal [facility] CHEMISTRY Potassium Lvl 4.0 meq/L 3.5 - 5.1 08/13/2012 Normal [facility] CHEMISTRY CO2 27 meq/L 24 - 32 08/13/2012 Normal [facility] CHEMISTRY Chloride Lvl 109 meq/L 95 - 109 08/13/2012 Normal [facility] CHEMISTRY Albumin Lvl 3.9 g/dL 3.5 - 5.0 08/13/2012 Normal [facility] CHEMISTRY Calcium Lvl 8.9 mg/dL 8.5 - 10.5 08/13/2012 Normal [facility] CHEMISTRY Total Protein 7.2 g/dL 6.4 - 8.4 08/13/2012 Normal [facility] CHEMISTRY Alk Phos 84 unit/L 39 - 136 08/13/2012 Normal [facility] CHEMISTRY Bili Total 0.4 mg/dL 0.2 - 1.3 08/13/2012 Normal [facility] CHEMISTRY AST 47 unit/L 0 - 37 08/13/2012 [facility] CHEMISTRY ALT 90 unit/L 0 - 65 08/13/2012 [facility] CHEMISTRY AGAP 10.0 meq/L 10.0 - 20.0 08/13/2012 Normal [facility] CHEMISTRY B/C Ratio 16 6 - 25 08/13/2012 Normal [facility] CHEMISTRY Globulin 3.3 g/dL 2.0 - 4.0 08/13/2012 Normal [facility] CHEMISTRY A/G Ratio 1.2 0.7 - 1.6 08/13/2012 Normal [facility] HEMATOLOGY Lymphocytes 27.5 % 20.0 - 40.0 08/13/2012 Normal [facility] HEMATOLOGY Segs 61.3 % 45.0 - 75.0 08/13/2012 Normal [facility] HEMATOLOGY Eosinophils 2.0 % 0.0 - 4.0 08/13/2012 Normal [facility] HEMATOLOGY Monocytes 8.5 % 2.0 - 12.0 08/13/2012 Normal [facility] HEMATOLOGY Segs-Bands # 3.2 K/CMM 1.5 - 8.1 08/13/2012 Normal [facility] HEMATOLOGY Basophils 0.7 % 0.0 - 1.0 08/13/2012 Normal [facility] HEMATOLOGY Lymphocytes # 1.4 K/CMM 1.0 - 5.5 08/13/2012 Normal [facility] HEMATOLOGY Eosinophils # 0.1 K/CMM 0.0 - 0.5 08/13/2012 Normal [facility] HEMATOLOGY Monocytes # 0.4 K/CMM 0.0 - 0.8 08/13/2012 Normal [facility] HEMATOLOGY Basophils # 0.0 K/CMM 0.0 - 0.2 08/13/2012 Normal [facility] HEMATOLOGY Hct 37.7 % 36.0 - 48.0 08/13/2012 Normal [facility] HEMATOLOGY Hgb 12.5 g/dL 12.0 - 16.0 08/13/2012 Normal [facility] HEMATOLOGY MCV 85.5 fL 81.0 - 99.0 08/13/2012 Normal [facility] HEMATOLOGY RBC 4.41 M/CMM 4.20 - 5.40 08/13/2012 Normal [facility] HEMATOLOGY WBC 5.1 K/CMM 3.7 - 10.4 08/13/2012 Normal [facility] HEMATOLOGY MPV 7.6 fL 7.4 - 10.4 08/13/2012 Normal [facility] HEMATOLOGY MCHC 33.0 g/dL 32.0 - 36.0 08/13/2012 Normal [facility] HEMATOLOGY MCH 28.2 pg 27.0 - 31.0 08/13/2012 Normal [facility] HEMATOLOGY Platelet 224 K/CMM 133 - 450 08/13/2012 Normal [facility] HEMATOLOGY RDW 14.4 % 11.5 - 14.5 08/13/2012 Normal [facility] URINALYSIS UA WBC 7 /HPF 0 - 5 08/13/2012 HI [facility] URINALYSIS UA Urobilinogen <=1.0 mg/dL
*NA*
(08/12/2012 20:11:00) <sup> </sup> 0.1 - 1.0 08/13/2012 NA [facility] URINALYSIS UA RBC 5 /HPF 0 - 2 08/13/2012 HI [facility] URINALYSIS UA Leuk Est Moderate *ABN* (08/12/2012 20:11:00) Negative 08/13/2012 ABN [facility] URINALYSIS UA Sq Epi Few /LPF *NA* (08/12/2012 20:11:00) Few 08/13/2012 NA [facility] URINALYSIS UA Nitrite Negative (08/12/2012 20:11:00) Negative 08/13/2012 Normal [facility] URINALYSIS UA Color Yellow *NA* (08/12/2012 20:11:00) Yellow 08/13/2012 NA [facility] URINALYSIS UA Glucose Negative mg/dL *NA* (08/12/2012 20:11:00) Negative 08/13/2012 NA [facility] URINALYSIS UA Protein Negative mg/dL (08/12/2012 20:11:00) Negative 08/13/2012 Normal [facility] URINALYSIS UA Turbidity Slight *ABN* (08/12/2012 20:11:00) Clear 08/13/2012 ABN [facility] URINALYSIS UA pH 5.0 5.0 - 8.0 08/13/2012 Normal [facility] URINALYSIS UA Spec Grav 1.018 <=1.030 08/13/2012 Normal [facility] URINALYSIS UA Bili Negative *NA* (08/12/2012 20:11:00) Negative 08/13/2012 NA [facility] URINALYSIS UA Ketones Negative mg/dL *NA* (08/12/2012 20:11:00) Negative 08/13/2012 [facility] URINALYSIS UA Blood Large *ABN* (08/12/2012 20:11:00) Negative 08/13/2012 ABN [facility] CHEMISTRY Troponin-I null 0.00 - 0.40 07/15/2012 Normal [facility] CHEMISTRY CK MB 0.7 ng/mL 0.5 - 3.6 07/15/2012 Normal [facility] CHEMISTRY Total CK 75 unit/L 12 - 191 07/15/2012 Normal [facility] CHEMISTRY AGAP 10.6 meq/L 10.0 - 20.0 07/15/2012 Normal [facility] CHEMISTRY B/C Ratio 18 6 - 25 07/15/2012 Normal [facility] CHEMISTRY Globulin 3.1 g/dL 2.0 - 4.0 07/15/2012 Normal [facility] CHEMISTRY A/G Ratio 1.2 0.7 - 1.6 07/15/2012 Normal [facility] CHEMISTRY eGFR 96 mL/min/1.73m2 07/15/2012 NA 1Result Comment: The eGFR is calculated using the CKD-EPI formula. In most young, healthy individuals the eGFR will be >90 mL/min/1.73m2. The eGFR declines with age. An eGFR of 60-89 may be normal in some populations, particularly the elderly, for whom the CKD-EPI formula has not been extensively validated. Use of the eGFR is not recommended in the following populations: Individuals with unstable creatinine concentrations, including patients and those with serious co-morbid conditions. Patients with extremes in muscle mass or diet. The data above are obtained from the National Kid[employer] Disease Education Program (NKDEP) which additionally recommends that when the eGFR is used in patients with extremes of body mass index for purposes of drug dosing, the eGFR should be multiplied by the estimated BMI. [facility] CHEMISTRY BUN 14 mg/dL 7 - 22 07/15/2012 Normal [facility] CHEMISTRY Chloride Lvl 109 meq/L 95 - 109 07/15/2012 Normal [facility] CHEMISTRY Creatinine Lvl 0.8 mg/dL 0.5 - 1.4 07/15/2012 Normal [facility] CHEMISTRY Potassium Lvl 3.6 meq/L 3.5 - 5.1 07/15/2012 Normal [facility] CHEMISTRY Sodium Lvl 140 meq/L 135 - 145 07/15/2012 Normal [facility] CHEMISTRY CO2 24 meq/L 24 - 32 07/15/2012 Normal [facility] CHEMISTRY Albumin Lvl 3.7 g/dL 3.5 - 5.0 07/15/2012 Normal [facility] CHEMISTRY Calcium Lvl 8.3 mg/dL 8.5 - 10.5 07/15/2012 LOW [facility] CHEMISTRY Glucose Lvl 92 mg/dL 70 - 99 07/15/2012 Normal 2Interpretive Data: Adult reference range values reflect the clinical guidelines of the [place] [employer]. [facility] CHEMISTRY Bili Total 0.3 mg/dL 0.2 - 1.3 07/15/2012 Normal [facility] CHEMISTRY AST 11 unit/L 0 - 37 07/15/2012 Normal [facility] CHEMISTRY Alk Phos 75 unit/L 39 - 136 07/15/2012 Normal [facility] CHEMISTRY Total Protein 6.8 g/dL 6.4 - 8.4 07/15/2012 Normal [facility] CHEMISTRY ALT 20 unit/L 0 - 65 07/15/2012 Normal [facility] CHEMISTRY S Preg Negative *NA* (07/15/2012 08:00:00) Negative 07/15/2012 NA [facility] CHEMISTRY CK MB Index 0.9 0.0 - 2.5 07/15/2012 Normal [facility] HEMATOLOGY MPV 8.0 fL 7.4 - 10.4 07/15/2012 Normal [facility] HEMATOLOGY Platelet 233 K/CMM 133 - 450 07/15/2012 Normal [facility] HEMATOLOGY MCH 29.0 pg 27.0 - 31.0 07/15/2012 Normal [facility] HEMATOLOGY MCHC 34.0 g/dL 32.0 - 36.0 07/15/2012 Normal [facility] HEMATOLOGY RDW 13.6 % 11.5 - 14.5 07/15/2012 Normal [facility] HEMATOLOGY MCV 85.5 fL 81.0 - 99.0 07/15/2012 Normal [facility] HEMATOLOGY Hct 36.3 % 36.0 - 48.0 07/15/2012 Normal [facility] HEMATOLOGY RBC 4.25 M/CMM 4.20 - 5.40 07/15/2012 Normal [facility] HEMATOLOGY WBC 5.4 K/CMM 3.7 - 10.4 07/15/2012 Normal [facility] HEMATOLOGY Hgb 12.3 g/dL 12.0 - 16.0 07/15/2012 Normal [facility] HEMATOLOGY Basophils 0.4 % 0.0 - 1.0 07/15/2012 Normal [facility] HEMATOLOGY Eosinophils 1.1 % 0.0 - 4.0 07/15/2012 Normal [facility] HEMATOLOGY Eosinophils # 0.1 K/CMM 0.0 - 0.5 07/15/2012 Normal [facility] HEMATOLOGY Basophils # 0.0 K/CMM 0.0 - 0.2 07/15/2012 Normal [facility] HEMATOLOGY Monocytes # 0.3 K/CMM 0.0 - 0.8 07/15/2012 Normal [facility] HEMATOLOGY Lymphocytes # 1.3 K/CMM 1.0 - 5.5 07/15/2012 Normal [facility] HEMATOLOGY Segs-Bands # 3.7 K/CMM 1.5 - 8.1 07/15/2012 Normal [facility] HEMATOLOGY Monocytes 5.5 % 2.0 - 12.0 07/15/2012 Normal [facility] HEMATOLOGY Lymphocytes 24.9 % 20.0 - 40.0 07/15/2012 Normal [facility] HEMATOLOGY Segs 68.1 % 45.0 - 75.0 07/15/2012 Normal [facility] URINALYSIS UA Urobilinogen <=1.0 mg/dL
*NA*
(07/15/2012 08:00:00) <sup> </sup> 0.1 - 1.0 07/15/2012 NA [facility] URINALYSIS UA Leuk Est Trace *ABN* (07/15/2012 08:00:00) Negative 07/15/2012 ABN [facility] URINALYSIS UA Nitrite Negative (07/15/2012 08:00:00) Negative 07/15/2012 Normal [facility] URINALYSIS UA Mucus Few /LPF *NA* (07/15/2012 08:00:00) None Seen 07/15/2012 [facility] URINALYSIS UA Bacteria Moderate /HPF *ABN* (07/15/2012 08:00:00) None Seen 07/15/2012 ABN [facility] URINALYSIS UA RBC 11 /HPF 0 - 2 07/15/2012 [facility] URINALYSIS UA WBC 5 /HPF 0 - 5 07/15/2012 Normal [facility] URINALYSIS UA Sq Epi Few /LPF *NA* (07/15/2012 08:00:00) Few 07/15/2012 NA [facility] URINALYSIS UA Bili Negative *NA* (07/15/2012 08:00:00) Negative 07/15/2012 [facility] URINALYSIS UA Ketones Negative mg/dL *NA* (07/15/2012 08:00:00) Negative 07/15/2012 NA [facility] URINALYSIS UA Protein Negative mg/dL (07/15/2012 08:00:00) Negative 07/15/2012 Normal [facility] URINALYSIS UA Glucose Negative mg/dL *NA* (07/15/2012 08:00:00) Negative 07/15/2012 [facility] URINALYSIS UA Blood Small *ABN* (07/15/2012 08:00:00) Negative 07/15/2012 ABN [facility] URINALYSIS UA pH 5.0 5.0 - 8.0 07/15/2012 Normal [facility] URINALYSIS UA Spec Grav 1.025 <=1.030 07/15/2012 Normal [facility] URINALYSIS UA Color Yellow *NA* (07/15/2012 08:00:00) Yellow 07/15/2012 [facility] URINALYSIS UA Turbidity Slight *ABN* (07/15/2012 08:00:00) Clear 07/15/2012 ABN [facility] CHEMISTRY Lipase Lvl 95 unit/L 73 - 393 07/02/2012 Normal [facility] CHEMISTRY AGAP 12.9 meq/L 10.0 - 20.0 07/02/2012 Normal [facility] CHEMISTRY A/G Ratio 1.1 0.7 - 1.6 07/02/2012 Normal [facility] CHEMISTRY Globulin 3.3 g/dL 2.0 - 4.0 07/02/2012 Normal [facility] CHEMISTRY B/C Ratio 14 6 - 25 07/02/2012 Normal [facility] CHEMISTRY eGFR 113 mL/min/1.73m2 07/02/2012 NA 1Result Comment: The eGFR is calculated using the CKD-EPI formula. In most young, healthy individuals the eGFR will be >90 mL/min/1.73m2. The eGFR declines with age. An eGFR of 60-89 may be normal in some populations, particularly the elderly, for whom the CKD-EPI formula has not been extensively validated. Use of the eGFR is not recommended in the following populations: Individuals with unstable creatinine concentrations, including patients and those with serious co-morbid conditions. Patients with extremes in muscle mass or diet. The data above are obtained from the National Kidney Disease Education Program (NKDEP) which additionally recommends that when the eGFR is used in patients with extremes of body mass index for purposes of drug dosing, the eGFR should be multiplied by the estimated BMI. [facility] CHEMISTRY Creatinine Lvl 0.7 mg/dL 0.5 - 1.4 07/02/2012 Normal [facility] CHEMISTRY Sodium Lvl 141 meq/L 135 - 145 07/02/2012 Normal [facility] CHEMISTRY Chloride Lvl 107 meq/L 95 - 109 07/02/2012 Normal [facility] CHEMISTRY CO2 25 meq/L 24 - 32 07/02/2012 Normal [facility] CHEMISTRY Calcium Lvl 8.3 mg/dL 8.5 - 10.5 07/02/2012 LOW [facility] CHEMISTRY Potassium Lvl 3.9 meq/L 3.5 - 5.1 07/02/2012 Normal [facility] CHEMISTRY Albumin Lvl 3.5 g/dL 3.5 - 5.0 07/02/2012 Normal [facility] CHEMISTRY Glucose Lvl 80 mg/dL 70 - 99 07/02/2012 Normal 2Interpretive Data: Adult reference range values reflect the clinical guidelines of the [place] [employer]. [facility] CHEMISTRY Total Protein 6.8 g/dL 6.4 - 8.4 07/02/2012 Normal [facility] CHEMISTRY Bili Total 0.4 mg/dL 0.2 - 1.3 07/02/2012 Normal [facility] CHEMISTRY BUN 10 mg/dL 7 - 22 07/02/2012 Normal [facility] CHEMISTRY ALT 27 unit/L 0 - 65 07/02/2012 Normal [facility] CHEMISTRY Alk Phos 74 unit/L 39 - 136 07/02/2012 Normal [facility] CHEMISTRY AST 18 unit/L 0 - 37 07/02/2012 Normal [facility] CHEMISTRY U Preg Negative (07/02/2012 08:29:00) Negative 07/02/2012 Normal [facility] HEMATOLOGY Lymphocytes # 1.6 K/CMM 1.0 - 5.5 07/02/2012 Normal [facility] HEMATOLOGY Segs-Bands # 2.5 K/CMM 1.5 - 8.1 07/02/2012 Normal [facility] HEMATOLOGY Basophils 0.5 % 0.0 - 1.0 07/02/2012 Normal [facility] HEMATOLOGY Segs 53.3 % 45.0 - 75.0 07/02/2012 Normal [facility] HEMATOLOGY Lymphocytes 33.6 % 20.0 - 40.0 07/02/2012 Normal [facility] HEMATOLOGY Monocytes 9.2 % 2.0 - 12.0 07/02/2012 Normal [facility] HEMATOLOGY Eosinophils 3.4 % 0.0 - 4.0 07/02/2012 Normal [facility] HEMATOLOGY Basophils # 0.0 K/CMM 0.0 - 0.2 07/02/2012 Normal [facility] HEMATOLOGY Monocytes # 0.4 K/CMM 0.0 - 0.8 07/02/2012 Normal [facility] HEMATOLOGY Eosinophils # 0.2 K/CMM 0.0 - 0.5 07/02/2012 Normal [facility] HEMATOLOGY MPV 8.1 fL 7.4 - 10.4 07/02/2012 Normal [facility] HEMATOLOGY Hct 38.1 % 36.0 - 48.0 07/02/2012 Normal [facility] HEMATOLOGY Hgb 12.4 g/dL 12.0 - 16.0 07/02/2012 Normal [facility] HEMATOLOGY WBC 4.7 K/CMM 3.7 - 10.4 07/02/2012 Normal [facility] HEMATOLOGY RBC 4.37 M/CMM 4.20 - 5.40 07/02/2012 Normal [facility] HEMATOLOGY RDW 13.8 % 11.5 - 14.5 07/02/2012 Normal [facility] HEMATOLOGY MCHC 32.7 g/dL 32.0 - 36.0 07/02/2012 Normal [facility] HEMATOLOGY MCH 28.5 pg 27.0 - 31.0 07/02/2012 Normal [facility] HEMATOLOGY MCV 87.2 fL 81.0 - 99.0 07/02/2012 Normal [facility] HEMATOLOGY Platelet 219 K/CMM 133 - 450 07/02/2012 Normal [facility] URINALYSIS UA Urobilinogen <=1.0 mg/dL
*NA*
(07/02/2012 08:29:00) <sup> </sup> 0.1 - 1.0 07/02/2012 [facility] URINALYSIS UA Mucus Few /LPF *NA* (07/02/2012 08:29:00) None Seen 07/02/2012 [facility] URINALYSIS UA Bacteria Many /HPF *ABN* (07/02/2012 08:29:00) None Seen 07/02/2012 [facility] URINALYSIS UA Hyal Cast 1 /LPF 0 - 2 07/02/2012 Normal [facility] URINALYSIS UA pH 5.0 5.0 - 8.0 07/02/2012 Normal [facility] URINALYSIS UA Spec Grav 1.026 <=1.030 07/02/2012 Normal [facility] URINALYSIS UA Turbidity Slight *ABN* (07/02/2012 08:29:00) Clear 07/02/2012 [facility] URINALYSIS UA Protein 30 mg/dL *ABN* (07/02/2012 08:29:00) Negative 07/02/2012 [facility] URINALYSIS UA Nitrite Negative (07/02/2012 08:29:00) Negative 07/02/2012 Normal [facility] URINALYSIS UA Glucose Negative mg/dL *NA* (07/02/2012 08:29:00) Negative 07/02/2012 NA [facility] URINALYSIS UA Ketones Negative mg/dL *NA* (07/02/2012 08:29:00) Negative 07/02/2012 NA [facility] URINALYSIS UA Bili Negative *NA* (07/02/2012 08:29:00) Negative 07/02/2012 NA [facility] URINALYSIS UA Blood Negative (07/02/2012 08:29:00) Negative 07/02/2012 Normal [facility] URINALYSIS UA RBC 2 /HPF 0 - 2 07/02/2012 Normal [facility] URINALYSIS UA Leuk Est Small *ABN* (07/02/2012 08:29:00) Negative 07/02/2012 [facility] URINALYSIS UA Sq Epi Many /LPF *ABN* (07/02/2012 08:29:00) Few 07/02/2012 [facility] URINALYSIS UA WBC 19 /HPF 0 - 5 07/02/2012 [facility] URINALYSIS UA Color Yellow *NA* (07/02/2012 08:29:00) Yellow 07/02/2012 NA [facility] Microbiology Culture: Urine 06/23/2012 [facility] CHEMISTRY A/G Ratio 1.2 0.7 - 1.6 06/23/2012 Normal [facility] CHEMISTRY Globulin 3.5 g/dL 2.0 - 4.0 06/23/2012 Normal [facility] CHEMISTRY AGAP 11.7 meq/L 10.0 - 20.0 06/23/2012 Normal [facility] CHEMISTRY B/C Ratio 19 6 - 25 06/23/2012 Normal [facility] CHEMISTRY Total Protein 7.6 g/dL 6.4 - 8.4 06/23/2012 Normal [facility] CHEMISTRY ALT 26 unit/L 0 - 65 06/23/2012 Normal [facility] CHEMISTRY Bili Total 0.6 mg/dL 0.2 - 1.3 06/23/2012 Normal [facility] CHEMISTRY Alk Phos 85 unit/L 39 - 136 06/23/2012 Normal [facility] CHEMISTRY AST 16 unit/L 0 - 37 06/23/2012 Normal [facility] CHEMISTRY eGFR 113 mL/min/1.73m2 06/23/2012 NA 1Result Comment: The eGFR is calculated using the CKD-EPI formula. In most young, healthy individuals the eGFR will be >90 mL/min/1.73m2. The eGFR declines with age. An eGFR of 60-89 may be normal in some populations, particularly the elderly, for whom the CKD-EPI formula has not been extensively validated. Use of the eGFR is not recommended in the following populations: Individuals with unstable creatinine concentrations, including patients and those with serious co-morbid conditions. Patients with extremes in muscle mass or diet. The data above are obtained from the National Kidney Disease Education Program (NKDEP) which additionally recommends that when the eGFR is used in patients with extremes of body mass index for purposes of drug dosing, the eGFR should be multiplied by the estimated BMI. [facility] CHEMISTRY Chloride Lvl 107 meq/L 95 - 109 06/23/2012 Normal [facility] CHEMISTRY Calcium Lvl 8.6 mg/dL 8.5 - 10.5 06/23/2012 Normal [facility] CHEMISTRY CO2 25 meq/L 24 - 32 06/23/2012 Normal [facility] CHEMISTRY Albumin Lvl 4.1 g/dL 3.5 - 5.0 06/23/2012 Normal [facility] CHEMISTRY Potassium Lvl 3.7 meq/L 3.5 - 5.1 06/23/2012 Normal [facility] CHEMISTRY BUN 13 mg/dL 7 - 22 06/23/2012 Normal [facility] CHEMISTRY Glucose Lvl 105 mg/dL 70 - 99 06/23/2012 [place] 2Interpretive Data: Adult reference range values reflect the clinical guidelines of the [place] [employer]. [facility] CHEMISTRY Sodium Lvl 140 meq/L 135 - 145 06/23/2012 Normal [facility] CHEMISTRY Creatinine Lvl 0.7 mg/dL 0.5 - 1.4 06/23/2012 Normal [facility] CHEMISTRY Lipase Lvl 145 unit/L 73 - 393 06/23/2012 Normal [facility] CHEMISTRY Amylase Lvl 73 unit/L 25 - 115 06/23/2012 Normal [facility] HEMATOLOGY WBC 6.0 K/CMM 3.7 - 10.4 06/23/2012 Normal [facility] HEMATOLOGY RBC 4.55 M/CMM 4.20 - 5.40 06/23/2012 Normal [facility] HEMATOLOGY Hgb 13.3 g/dL 12.0 - 16.0 06/23/2012 Normal [facility] HEMATOLOGY Platelet 241 K/CMM 133 - 450 06/23/2012 Normal [facility] HEMATOLOGY RDW 14.0 % 11.5 - 14.5 06/23/2012 Normal [facility] HEMATOLOGY MCH 29.1 pg 27.0 - 31.0 06/23/2012 Normal [facility] HEMATOLOGY Hct 39.4 % 36.0 - 48.0 06/23/2012 Normal [facility] HEMATOLOGY MCHC 33.7 g/dL 32.0 - 36.0 06/23/2012 Normal [facility] HEMATOLOGY MCV 86.6 fL 81.0 - 99.0 06/23/2012 Normal [facility] HEMATOLOGY MPV 8.1 fL 7.4 - 10.4 06/23/2012 Normal [facility] HEMATOLOGY Eosinophils 2.6 % 0.0 - 4.0 06/23/2012 Normal [facility] HEMATOLOGY Monocytes # 0.3 K/CMM 0.0 - 0.8 06/23/2012 Normal [facility] HEMATOLOGY Lymphocytes # 1.6 K/CMM 1.0 - 5.5 06/23/2012 Normal [facility] HEMATOLOGY Segs-Bands # 4.0 K/CMM 1.5 - 8.1 06/23/2012 Normal [facility] HEMATOLOGY Basophils 0.8 % 0.0 - 1.0 06/23/2012 Normal [facility] HEMATOLOGY Basophils # 0.0 K/CMM 0.0 - 0.2 06/23/2012 Normal [facility] HEMATOLOGY Eosinophils # 0.2 K/CMM 0.0 - 0.5 06/23/2012 Normal [facility] HEMATOLOGY Segs 65.6 % 45.0 - 75.0 06/23/2012 Normal [facility] HEMATOLOGY Lymphocytes 25.8 % 20.0 - 40.0 06/23/2012 Normal [facility] HEMATOLOGY Monocytes 5.2 % 2.0 - 12.0 06/23/2012 Normal [facility] CHEMISTRY U Preg Negative (06/23/2012 08:10:00) Negative 06/23/2012 Normal [facility] URINALYSIS UA Urobilinogen <=1.0 mg/dL
*NA*
(06/23/2012 08:10:00) <sup> </sup> 0.1 - 1.0 06/23/2012 NA [facility] URINALYSIS UA Color Ltyellow 06/23/2012 [facility] URINALYSIS UA Bili Negative *NA* (06/23/2012 08:10:00) Negative 06/23/2012 [facility] URINALYSIS UA Turbidity Clear (06/23/2012 08:10:00) Clear 06/23/2012 Normal [facility] URINALYSIS UA Nitrite Negative (06/23/2012 08:10:00) Negative 06/23/2012 Normal [facility] URINALYSIS UA Blood Large *ABN* (06/23/2012 08:10:00) Negative 06/23/2012 ABN [facility] URINALYSIS UA Leuk Est Small *ABN* (06/23/2012 08:10:00) Negative 06/23/2012 [facility] URINALYSIS UA WBC 11 /HPF 0 - 5 06/23/2012 [facility] URINALYSIS UA Sq Epi Occasional /LPF *NA* (06/23/2012 08:10:00) Few 06/23/2012 [facility] URINALYSIS UA pH 6.0 5.0 - 8.0 06/23/2012 Normal [facility] URINALYSIS UA Spec Grav 1.010 <=1.030 06/23/2012 Normal [facility] URINALYSIS UA Protein Negative mg/dL (06/23/2012 08:10:00) Negative 06/23/2012 Normal [facility] URINALYSIS UA Ketones Negative mg/dL *NA* (06/23/2012 08:10:00) Negative 06/23/2012 [facility] [place] URINALYSIS UA Glucose Negative mg/dL *NA* (06/23/2012 08:10:00) Negative 06/23/2012 [facility] URINALYSIS UA Bacteria Many /HPF *ABN* (06/23/2012 08:10:00) None Seen 06/23/2012 [facility] URINALYSIS UA RBC null 0 - 2 06/23/2012 HI [facility] CHEMISTRY B/C Ratio 16 6 - 25 03/28/2012 Normal [facility] CHEMISTRY AGAP 12.0 meq/L 10.0 - 20.0 03/28/2012 Normal [facility] CHEMISTRY A/G Ratio 1.2 0.7 - 1.6 03/28/2012 Normal [facility] CHEMISTRY Globulin 3.2 g/dL 2.0 - 4.0 03/28/2012 Normal [facility] CHEMISTRY Potassium Lvl 4.0 meq/L 3.5 - 5.1 03/28/2012 Normal [facility] CHEMISTRY Chloride Lvl 107 meq/L 95 - 109 03/28/2012 Normal [facility] CHEMISTRY CO2 24 meq/L 24 - 32 03/28/2012 Normal [facility] CHEMISTRY Albumin Lvl 3.7 g/dL 3.5 - 5.0 03/28/2012 Normal [facility] CHEMISTRY Calcium Lvl 8.6 mg/dL 8.5 - 10.5 03/28/2012 Normal [facility] CHEMISTRY BUN 14 mg/dL 7 - 22 03/28/2012 Normal [facility] CHEMISTRY Creatinine Lvl 0.9 mg/dL 0.5 - 1.4 03/28/2012 Normal [facility] CHEMISTRY Sodium Lvl 139 meq/L 135 - 145 03/28/2012 Normal [facility] CHEMISTRY Glucose Lvl 83 mg/dL 70 - 99 03/28/2012 Normal 2Interpretive Data: Adult reference range values reflect the clinical guidelines of the [place] [employer]. [facility] CHEMISTRY eGFR 84 mL/min/1.73m2 03/28/2012 NA 1Result Comment: The eGFR is calculated using the CKD-EPI formula. In most young, healthy individuals the eGFR will be >90 mL/min/1.73m2. The eGFR declines with age. An eGFR of 60-89 may be normal in some populations, particularly the elderly, for whom the CKD-EPI formula has not been extensively validated. Use of the eGFR is not recommended in the following populations: Individuals with unstable creatinine concentrations, including patients and those with serious co-morbid conditions. Patients with extremes in muscle mass or diet. The data above are obtained from the National Kidney Disease Education Program (NKDEP) which additionally recommends that when the eGFR is used in patients with extremes of body mass index for purposes of drug dosing, the eGFR should be multiplied by the estimated BMI. [facility] CHEMISTRY Alk Phos 69 unit/L 39 - 136 03/28/2012 Normal [facility] CHEMISTRY Total Protein 6.9 g/dL 6.4 - 8.4 03/28/2012 Normal [facility] CHEMISTRY ALT 25 unit/L 0 - 65 03/28/2012 Normal [facility] CHEMISTRY AST 15 unit/L 0 - 37 03/28/2012 Normal [facility] CHEMISTRY Bili Total 0.4 mg/dL 0.2 - 1.3 03/28/2012 Normal [facility] CHEMISTRY Lipase Lvl 119 unit/L 73 - 393 03/28/2012 Normal [facility] HEMATOLOGY RDW 13.9 % 11.5 - 14.5 03/28/2012 Normal [facility] HEMATOLOGY MPV 8.4 fL 7.4 - 10.4 03/28/2012 Normal [facility] HEMATOLOGY Platelet 227 K/CMM 133 - 450 03/28/2012 Normal [facility] HEMATOLOGY MCH 29.5 pg 27.0 - 31.0 03/28/2012 Normal [facility] HEMATOLOGY MCV 86.5 fL 81.0 - 99.0 03/28/2012 Normal [facility] HEMATOLOGY RBC 4.51 M/CMM 4.20 - 5.40 03/28/2012 Normal [facility] HEMATOLOGY WBC 6.3 K/CMM 3.7 - 10.4 03/28/2012 Normal [facility] HEMATOLOGY MCHC 34.1 g/dL 32.0 - 36.0 03/28/2012 Normal [facility] HEMATOLOGY Hgb 13.3 g/dL 12.0 - 16.0 03/28/2012 Normal [facility] HEMATOLOGY Hct 39.0 % 36.0 - 48.0 03/28/2012 Normal [facility] HEMATOLOGY Eosinophils 1.7 % 0.0 - 4.0 03/28/2012 Normal [facility] HEMATOLOGY Monocytes # 0.4 K/CMM 0.0 - 0.8 03/28/2012 Normal [facility] HEMATOLOGY Segs-Bands # 3.9 K/CMM 1.5 - 8.1 03/28/2012 Normal [facility] HEMATOLOGY Lymphocytes # 1.8 K/CMM 1.0 - 5.5 03/28/2012 Normal [facility] HEMATOLOGY Basophils 0.5 % 0.0 - 1.0 03/28/2012 Normal [facility] HEMATOLOGY Eosinophils # 0.1 K/CMM 0.0 - 0.5 03/28/2012 Normal [facility] HEMATOLOGY Basophils # 0.0 K/CMM 0.0 - 0.2 03/28/2012 Normal [facility] HEMATOLOGY Lymphocytes 29.5 % 20.0 - 40.0 03/28/2012 Normal [facility] HEMATOLOGY Monocytes 6.3 % 2.0 - 12.0 03/28/2012 Normal [facility] HEMATOLOGY Segs 62.0 % 45.0 - 75.0 03/28/2012 Normal [facility] IMMUNOLOGY CDC-HIV 1/2 Ab Negative *NA* (03/28/2012 13:20:00) Negative 03/28/2012 NA [facility] URINALYSIS UA WBC 14 /HPF 0 - 5 03/28/2012 [facility] URINALYSIS UA Sq Epi Occasional /LPF *NA* (03/28/2012 13:20:00) Few 03/28/2012 NA [facility] URINALYSIS UA Bacteria Occasional /HPF *NA* (03/28/2012 13:20:00) None Seen 03/28/2012 [facility] URINALYSIS UA RBC 1 /HPF 0 - 2 03/28/2012 Normal [facility] URINALYSIS UA Nitrite Negative (03/28/2012 13:20:00) Negative 03/28/2012 Normal [facility] URINALYSIS UA Leuk Est Moderate *ABN* (03/28/2012 13:20:00) Negative 03/28/2012 [facility] URINALYSIS UA Urobilinogen 0.2 EU/dL 0.1 - 1.0 03/28/2012 Normal [facility] URINALYSIS UA Blood Negative (03/28/2012 13:20:00) Negative 03/28/2012 Normal [facility] URINALYSIS UA Bili Negative *NA* (03/28/2012 13:20:00) Negative 03/28/2012 [facility] URINALYSIS UA Ketones Negative *NA* (03/28/2012 13:20:00) Negative 03/28/2012 [facility] URINALYSIS UA Color Yellow *NA* (03/28/2012 13:20:00) Yellow 03/28/2012 NA [facility] URINALYSIS UA Turbidity Clear (03/28/2012 13:20:00) Clear 03/28/2012 Normal [facility] URINALYSIS UA Protein Negative (03/28/2012 13:20:00) Negative 03/28/2012 Normal [facility] URINALYSIS UA pH 6.0 5.0 - 8.0 03/28/2012 Normal [facility] URINALYSIS UA Spec Grav null <=1.030 03/28/2012 NA [facility] URINALYSIS UA Glucose Negative (03/28/2012 13:20:00) Negative 03/28/2012 Normal [facility] IMMUNOLOGY Source Chlam endocervix 03/25/2012 NA [facility] IMMUNOLOGY Chlam PCR Negative (03/25/2012 11:15:00) Negative 03/25/2012 Normal [facility] IMMUNOLOGY Gonorrhea PCR Negative (03/25/2012 11:15:00) Negative 03/25/2012 Normal [facility] IMMUNOLOGY Source Rolf Endocervix 03/25/2012 NA [facility] Microbiology Wet Prep 03/25/2012 [facility] CHEMISTRY U Preg Negative (03/25/2012 09:41:00) Negative 03/25/2012 Normal [facility] CHEMISTRY eGFR 113 mL/min/1.73m2 03/25/2012 NA 1Result Comment: The eGFR is calculated using the CKD-EPI formula. In most young, healthy individuals the eGFR will be >90 mL/min/1.73m2. The eGFR declines with age. An eGFR of 60-89 may be normal in some populations, particularly the elderly, for whom the CKD-EPI formula has not been extensively validated. Use of the eGFR is not recommended in the following populations: Individuals with unstable creatinine concentrations, including patients and those with serious co-morbid conditions. Patients with extremes in muscle mass or diet. The data above are obtained from the National Kidney Disease Education Program (NKDEP) which additionally recommends that when the eGFR is used in patients with extremes of body mass index for purposes of drug dosing, the eGFR should be multiplied by the estimated BMI. [facility] CHEMISTRY BUN 12 mg/dL 7 - 22 03/25/2012 Normal [facility] CHEMISTRY Potassium Lvl 3.9 meq/L 3.5 - 5.1 03/25/2012 Normal [facility] CHEMISTRY Chloride Lvl 106 meq/L 95 - 109 03/25/2012 Normal [facility] CHEMISTRY Creatinine Lvl 0.7 mg/dL 0.5 - 1.4 03/25/2012 Normal [facility] CHEMISTRY Sodium Lvl 140 meq/L 135 - 145 03/25/2012 Normal [facility] CHEMISTRY Glucose Lvl 91 mg/dL 70 - 99 03/25/2012 Normal 2Interpretive Data: Adult reference range values reflect the clinical guidelines of the [place] [employer]. [facility] CHEMISTRY CO2 25 meq/L 24 - 32 03/25/2012 Normal [facility] CHEMISTRY Albumin Lvl 3.8 g/dL 3.5 - 5.0 03/25/2012 Normal [facility] CHEMISTRY Calcium Lvl 8.8 mg/dL 8.5 - 10.5 03/25/2012 Normal [facility] CHEMISTRY Bili Total 0.5 mg/dL 0.2 - 1.3 03/25/2012 Normal [facility] CHEMISTRY AST 12 unit/L 0 - 37 03/25/2012 Normal [facility] CHEMISTRY ALT 21 unit/L 0 - 65 03/25/2012 Normal [facility] CHEMISTRY Total Protein 6.9 g/dL 6.4 - 8.4 03/25/2012 Normal [facility] CHEMISTRY Alk Phos 75 unit/L 39 - 136 03/25/2012 Normal [facility] CHEMISTRY AGAP 12.9 meq/L 10.0 - 20.0 03/25/2012 Normal [facility] CHEMISTRY B/C Ratio 17 6 - 25 03/25/2012 Normal [facility] CHEMISTRY Globulin 3.1 g/dL 2.0 - 4.0 03/25/2012 Normal [facility] CHEMISTRY A/G Ratio 1.2 0.7 - 1.6 03/25/2012 Normal [facility] CHEMISTRY Lipase Lvl 120 unit/L 73 - 393 03/25/2012 Normal [facility] HEMATOLOGY Platelet 224 K/CMM 133 - 450 03/25/2012 Normal [facility] HEMATOLOGY MPV 8.2 fL 7.4 - 10.4 03/25/2012 Normal [facility] HEMATOLOGY MCV 86.4 fL 81.0 - 99.0 03/25/2012 Normal [facility] HEMATOLOGY MCH 29.9 pg 27.0 - 31.0 03/25/2012 Normal [facility] HEMATOLOGY RDW 14.0 % 11.5 - 14.5 03/25/2012 Normal [facility] HEMATOLOGY MCHC 34.6 g/dL 32.0 - 36.0 03/25/2012 Normal [facility] HEMATOLOGY Hct 38.6 % 36.0 - 48.0 03/25/2012 Normal [facility] HEMATOLOGY Hgb 13.4 g/dL 12.0 - 16.0 03/25/2012 Normal [facility] HEMATOLOGY RBC 4.47 M/CMM 4.20 - 5.40 03/25/2012 Normal [facility] HEMATOLOGY WBC 6.3 K/CMM 3.7 - 10.4 03/25/2012 Normal [facility] HEMATOLOGY Eosinophils # 0.1 K/CMM 0.0 - 0.5 03/25/2012 Normal [facility] HEMATOLOGY Monocytes # 0.3 K/CMM 0.0 - 0.8 03/25/2012 Normal [facility] HEMATOLOGY Basophils # 0.0 K/CMM 0.0 - 0.2 03/25/2012 Normal [facility] HEMATOLOGY Eosinophils 1.1 % 0.0 - 4.0 03/25/2012 Normal [facility] HEMATOLOGY Basophils 0.6 % 0.0 - 1.0 03/25/2012 Normal [facility] HEMATOLOGY Lymphocytes 25.4 % 20.0 - 40.0 03/25/2012 Normal [facility] HEMATOLOGY Segs 67.8 % 45.0 - 75.0 03/25/2012 Normal [facility] HEMATOLOGY Monocytes 5.1 % 2.0 - 12.0 03/25/2012 Normal [facility] HEMATOLOGY Lymphocytes # 1.6 K/CMM 1.0 - 5.5 03/25/2012 Normal [facility] HEMATOLOGY Segs-Bands # 4.3 K/CMM 1.5 - 8.1 03/25/2012 Normal [facility] URINALYSIS UA Color Ltyellow 03/25/2012 NA [facility] URINALYSIS UA Urobilinogen <=1.0 mg/dL
*NA*
(03/25/2012 09:41:00) <sup> </sup> 0.1 - 1.0 03/25/2012 NA [facility] URINALYSIS UA WBC 14 /HPF 0 - 5 03/25/2012 [facility] URINALYSIS UA RBC 3 /HPF 0 - 2 03/25/2012 [facility] URINALYSIS UA Bacteria Few /HPF *NA* (03/25/2012 09:41:00) None Seen 03/25/2012 [facility] URINALYSIS UA Renal Epi 1 /LPF <=0 03/25/2012 [facility] URINALYSIS UA Mucus Few /LPF *NA* (03/25/2012 09:41:00) None Seen 03/25/2012 [facility] URINALYSIS UA Sq Epi Moderate /LPF *ABN* (03/25/2012 09:41:00) Few 03/25/2012 [facility] URINALYSIS UA Ketones Negative mg/dL *NA* (03/25/2012 09:41:00) Negative 03/25/2012 [facility] URINALYSIS UA Protein Negative mg/dL (03/25/2012 09:41:00) Negative 03/25/2012 Normal [facility] URINALYSIS UA pH 7.0 5.0 - 8.0 03/25/2012 Normal [facility] URINALYSIS UA Spec Grav 1.011 <=1.030 03/25/2012 Normal [facility] URINALYSIS UA Glucose Negative mg/dL *NA* (03/25/2012 09:41:00) Negative 03/25/2012 NA [facility] URINALYSIS UA Blood Negative (03/25/2012 09:41:00) Negative 03/25/2012 Normal [facility] URINALYSIS UA Bili Negative *NA* (03/25/2012 09:41:00) Negative 03/25/2012 NA [facility] URINALYSIS UA Leuk Est Moderate *ABN* (03/25/2012 09:41:00) Negative 03/25/2012 [facility] URINALYSIS UA Nitrite Negative (03/25/2012 09:41:00) Negative 03/25/2012 Normal [facility] URINALYSIS UA Turbidity Slight *ABN* (03/25/2012 09:41:00) Clear 03/25/2012 ABN [facility] Microbiology Culture: Urine 12/02/2011 [facility] CHEMISTRY U Preg Negative (12/02/2011 09:08:00) Negative 12/02/2011 Normal [facility] URINALYSIS UA Color Ltyellow 12/02/2011 NA [facility] URINALYSIS UA Urobilinogen <=1.0 mg/dL
*NA*
(12/02/2011 09:08:00) <sup> </sup> 0.1 - 1.0 12/02/2011 NA [facility] URINALYSIS UA WBC 5 /HPF 0 - 5 12/02/2011 Normal [facility] URINALYSIS UA RBC 2 /HPF 0 - 2 12/02/2011 Normal [facility] URINALYSIS UA Bacteria Moderate /HPF *ABN* (12/02/2011 09:08:00) None Seen 12/02/2011 [facility] URINALYSIS UA Leuk Est Trace *ABN* (12/02/2011 09:08:00) Negative 12/02/2011 [facility] URINALYSIS UA Nitrite Negative (12/02/2011 09:08:00) Negative 12/02/2011 Normal [facility] URINALYSIS UA Sq Epi Few /LPF *NA* (12/02/2011 09:08:00) Few 12/02/2011 NA [facility] URINALYSIS UA Bili Negative *NA* (12/02/2011 09:08:00) Negative 12/02/2011 NA [facility] URINALYSIS UA Blood Moderate *ABN* (12/02/2011 09:08:00) Negative 12/02/2011 ABN [facility] URINALYSIS UA Glucose Negative mg/dL *NA* (12/02/2011 09:08:00) Negative 12/02/2011 NA [facility] URINALYSIS UA Ketones Negative mg/dL *NA* (12/02/2011 09:08:00) Negative 12/02/2011 NA [facility] URINALYSIS UA pH 6.0 5.0 - 8.0 12/02/2011 Normal [facility] URINALYSIS UA Protein Negative mg/dL (12/02/2011 09:08:00) Negative 12/02/2011 Normal [facility] URINALYSIS UA Spec Grav 1.005 <=1.030 12/02/2011 Normal [facility] URINALYSIS UA Turbidity Slight *ABN* (12/02/2011 09:08:00) Clear 12/02/2011 ABN [facility] CHEMISTRY Calcium Lvl 8.3 mg/dL 8.5 - 10.5 08/13/2011 LOW [facility] CHEMISTRY Potassium Lvl 3.7 meq/L 3.5 - 5.1 08/13/2011 Normal [facility] CHEMISTRY AST 13 U/L 0 - 37 08/13/2011 Normal [facility] CHEMISTRY Chloride Lvl 109 meq/L 95 - 109 08/13/2011 Normal [facility] CHEMISTRY CO2 24 meq/L 24 - 32 08/13/2011 Normal [facility] CHEMISTRY Sodium Lvl 143 meq/L 135 - 145 08/13/2011 Normal [facility] CHEMISTRY Albumin Lvl 3.8 g/dL 3.5 - 5.0 08/13/2011 Normal [facility] CHEMISTRY ALT 23 U/L 0 - 65 08/13/2011 Normal [facility] CHEMISTRY Alk Phos 58 U/L 39 - 136 08/13/2011 Normal [facility] CHEMISTRY Bili Total 0.4 mg/dL 0.2 - 1.3 08/13/2011 Normal [facility] CHEMISTRY Creatinine Lvl 0.8 mg/dL 0.5 - 1.4 08/13/2011 Normal [facility] CHEMISTRY Total Protein 7.1 g/dL 6.4 - 8.4 08/13/2011 Normal [facility] CHEMISTRY BUN 15 mg/dL 7 - 22 08/13/2011 Normal [facility] CHEMISTRY Glucose Lvl 74 mg/dL 08/13/2011 NA 1Interpretive Data: Reference Ranges : 0 - 7 days : 41 - 90 mg/dL7 days - 150 yrs : 70 - 99 mg/dL (fasting), based on the clinical recommendations of the [place] [employer]. [facility] CHEMISTRY A/G Ratio 1.2 0.7 - 1.6 08/13/2011 Normal [facility] CHEMISTRY AGAP 13.7 meq/L 10.0 - 20.0 08/13/2011 Normal [facility] CHEMISTRY B/C Ratio 19 6 - 25 08/13/2011 Normal [facility] CHEMISTRY Globulin 3.3 g/dL 2.0 - 4.0 08/13/2011 Normal [facility] CHEMISTRY U Preg Negative (08/13/2011 08:40:00) Negative 08/13/2011 Normal [facility] HEMATOLOGY Hct 38.7 % 36.0 - 48.0 08/13/2011 Normal [facility] HEMATOLOGY MCV 84.7 fL 81.0 - 99.0 08/13/2011 Normal [facility] HEMATOLOGY MCH 28.1 pg 27.0 - 31.0 08/13/2011 Normal [facility] HEMATOLOGY MCHC 33.1 g/dL 32.0 - 36.0 08/13/2011 Normal [facility] HEMATOLOGY RBC 4.57 M/CMM 4.20 - 5.40 08/13/2011 Normal [facility] HEMATOLOGY Hgb 12.8 g/dL 12.0 - 16.0 08/13/2011 Normal [facility] HEMATOLOGY MPV 9.3 fL 7.4 - 10.4 08/13/2011 Normal [facility] HEMATOLOGY Platelet 181 K/CMM 133 - 450 08/13/2011 Normal [facility] HEMATOLOGY RDW 14.8 % 11.5 - 14.5 08/13/2011 HI [facility] HEMATOLOGY WBC 4.9 K/CMM 3.7 - 10.4 08/13/2011 Normal [facility] HEMATOLOGY Eosinophils 1.9 % 0.0 - 4.0 08/13/2011 Normal [facility] HEMATOLOGY Segs-Bands # 3.0 K/CMM 1.5 - 8.1 08/13/2011 Normal [facility] HEMATOLOGY Basophils 0.7 % 0.0 - 1.0 08/13/2011 Normal [facility] HEMATOLOGY Monocytes 7.3 % 2.0 - 12.0 08/13/2011 Normal [facility] HEMATOLOGY Eosinophils # 0.1 K/CMM 0.0 - 0.5 08/13/2011 Normal [facility] HEMATOLOGY Lymphocytes # 1.4 K/CMM 1.0 - 5.5 08/13/2011 Normal [facility] HEMATOLOGY Monocytes # 0.4 K/CMM 0.0 - 0.8 08/13/2011 Normal [facility] HEMATOLOGY Basophils # 0.0 K/CMM 0.0 - 0.2 08/13/2011 Normal [facility] HEMATOLOGY Lymphocytes 29.1 % 20.0 - 40.0 08/13/2011 Normal [facility] HEMATOLOGY Segs 61.0 % 45.0 - 75.0 08/13/2011 Normal [facility] URINALYSIS UA Nitrite Negative (08/13/2011 08:40:00) Negative 08/13/2011 Normal [facility] URINALYSIS UA Leuk Est Trace *ABN* (08/13/2011 08:40:00) Negative 08/13/2011 ABN [facility] URINALYSIS UA Bili Negative *NA* (08/13/2011 08:40:00) Negative 08/13/2011 NA [facility] URINALYSIS UA Blood Negative (08/13/2011 08:40:00) Negative 08/13/2011 Normal [facility] URINALYSIS UA Urobilinogen 0.2 EU/dL 0.1 - 1.0 08/13/2011 Normal [facility] URINALYSIS UA pH 5.5 5.0 - 8.0 08/13/2011 Normal [facility] URINALYSIS UA Protein Negative (08/13/2011 08:40:00) Negative 08/13/2011 Normal [facility] URINALYSIS UA Glucose Negative (08/13/2011 08:40:00) Negative 08/13/2011 Normal [facility] URINALYSIS UA Ketones Negative *NA* (08/13/2011 08:40:00) Negative 08/13/2011 NA [facility] URINALYSIS UA Spec Grav 1.025 <=1.030 08/13/2011 Normal [facility] URINALYSIS UA Turbidity Clear (08/13/2011 08:40:00) Clear 08/13/2011 Normal [facility] URINALYSIS UA Color Yellow *NA* (08/13/2011 08:40:00) Yellow 08/13/2011 NA [facility] URINALYSIS UA Mucus Few /LPF (08/13/2011 08:40:00) None Seen 08/13/2011 Normal [facility] URINALYSIS UA WBC 0-2 /HPF (08/13/2011 08:40:00) None Seen 08/13/2011 Normal [facility] URINALYSIS UA Bacteria Few /HPF (08/13/2011 08:40:00) None Seen 08/13/2011 Normal [facility] URINALYSIS UA RBC None Seen (08/13/2011 08:40:00) 0 - 2 08/13/2011 Normal [facility] URINALYSIS UA Sq Epi Few /LPF (08/13/2011 08:40:00) Few 08/13/2011 Normal [facility] IMMUNOLOGY Source Chlam endocervix 06/19/2011 NA [facility] IMMUNOLOGY Chlam PCR Negative (06/19/2011 09:15:00) Negative 06/19/2011 Normal [facility] IMMUNOLOGY Source Rolf Endocervix 06/19/2011 NA [facility] IMMUNOLOGY Gonorrhea PCR Negative (06/19/2011 09:15:00) Negative 06/19/2011 Normal [facility] Microbiology Wet Prep 06/19/2011 [facility] CHEMISTRY A/G Ratio 1.2 0.7 - 1.6 06/19/2011 Normal [facility] CHEMISTRY AGAP 11.9 meq/L 10.0 - 20.0 06/19/2011 Normal [facility] CHEMISTRY Globulin 3.5 g/dL 2.0 - 4.0 06/19/2011 Normal [facility] CHEMISTRY B/C Ratio 16 6 - 25 06/19/2011 Normal [facility] CHEMISTRY Total Protein 7.6 g/dL 6.4 - 8.4 06/19/2011 Normal [facility] CHEMISTRY Albumin Lvl 4.1 g/dL 3.5 - 5.0 06/19/2011 Normal [facility] CHEMISTRY AST 15 U/L 0 - 37 06/19/2011 Normal [facility] CHEMISTRY Alk Phos 66 U/L 39 - 136 06/19/2011 Normal [facility] CHEMISTRY ALT 28 U/L 0 - 65 06/19/2011 Normal [facility] CHEMISTRY Bili Total 0.4 mg/dL 0.2 - 1.3 06/19/2011 Normal [facility] CHEMISTRY Calcium Lvl 8.9 mg/dL 8.5 - 10.5 06/19/2011 Normal [facility] CHEMISTRY BUN 13 mg/dL 7 - 22 06/19/2011 Normal [facility] CHEMISTRY CO2 28 meq/L 24 - 32 06/19/2011 Normal [facility] CHEMISTRY Sodium Lvl 141 meq/L 135 - 145 06/19/2011 Normal [facility] CHEMISTRY Potassium Lvl 3.9 meq/L 3.5 - 5.1 06/19/2011 Normal [facility] CHEMISTRY Chloride Lvl 105 meq/L 95 - 109 06/19/2011 Normal [facility] CHEMISTRY Creatinine Lvl 0.8 mg/dL 0.5 - 1.4 06/19/2011 Normal [facility] CHEMISTRY Glucose Lvl 78 mg/dL 06/19/2011 NA 1Interpretive Data: Reference Ranges : 0 - 7 days : 41 - 90 mg/dL7 days - 150 yrs : 70 - 99 mg/dL (fasting), based on the clinical recommendations of the [place] [employer]. [facility] HEMATOLOGY WBC 4.7 K/CMM 3.7 - 10.4 06/19/2011 Normal [facility] HEMATOLOGY RBC 4.63 M/CMM 4.20 - 5.40 06/19/2011 Normal [facility] HEMATOLOGY MPV 8.2 fL 7.4 - 10.4 06/19/2011 Normal [facility] HEMATOLOGY Platelet 224 K/CMM 133 - 450 06/19/2011 Normal [facility] HEMATOLOGY RDW 14.8 % 11.5 - 14.5 06/19/2011 HI [facility] HEMATOLOGY Hct 38.7 % 36.0 - 48.0 06/19/2011 Normal [facility] HEMATOLOGY Hgb 13.3 g/dL 12.0 - 16.0 06/19/2011 Normal [facility] HEMATOLOGY MCV 83.6 fL 81.0 - 99.0 06/19/2011 Normal [facility] HEMATOLOGY MCHC 34.4 g/dL 32.0 - 36.0 06/19/2011 Normal [facility] HEMATOLOGY MCH 28.8 pg 27.0 - 31.0 06/19/2011 Normal [facility] HEMATOLOGY Monocytes # 0.3 K/CMM 0.0 - 0.8 06/19/2011 Normal [facility] HEMATOLOGY Eosinophils 2.5 % 0.0 - 4.0 06/19/2011 Normal [facility] HEMATOLOGY Basophils 0.8 % 0.0 - 1.0 06/19/2011 Normal [facility] HEMATOLOGY Lymphocytes 31.6 % 20.0 - 40.0 06/19/2011 Normal [facility] HEMATOLOGY Monocytes 6.4 % 2.0 - 12.0 06/19/2011 Normal [facility] HEMATOLOGY Eosinophils # 0.1 K/CMM 0.0 - 0.5 06/19/2011 Normal [facility] HEMATOLOGY Segs 58.7 % 45.0 - 75.0 06/19/2011 Normal [facility] HEMATOLOGY Segs-Bands # 2.8 K/CMM 1.5 - 8.1 06/19/2011 Normal [facility] HEMATOLOGY Lymphocytes # 1.5 K/CMM 1.0 - 5.5 06/19/2011 Normal [facility] HEMATOLOGY Basophils # 0.0 K/CMM 0.0 - 0.2 06/19/2011 Normal [facility] IMMUNOLOGY CDC-HIV 1/2 Ab Negative *NA* (06/19/2011 08:54:00) Negative 06/19/2011 NA [facility] CHEMISTRY U Preg Negative (06/19/2011 08:43:00) Negative 06/19/2011 Normal [facility] URINALYSIS UA Urobilinogen 0.2 EU/dL 0.1 - 1.0 06/19/2011 Normal [facility] URINALYSIS UA Nitrite Negative (06/19/2011 08:43:00) Negative 06/19/2011 Normal [facility] URINALYSIS UA Leuk Est Trace *ABN* (06/19/2011 08:43:00) Negative 06/19/2011 ABN [facility] URINALYSIS UA Ketones Negative *NA* (06/19/2011 08:43:00) Negative 06/19/2011 [facility] URINALYSIS UA Bili Negative *NA* (06/19/2011 08:43:00) Negative 06/19/2011 [facility] URINALYSIS UA Glucose Negative (06/19/2011 08:43:00) Negative 06/19/2011 Normal [facility] URINALYSIS UA Protein Negative (06/19/2011 08:43:00) Negative 06/19/2011 Normal [facility] URINALYSIS UA pH 7.0 5.0 - 8.0 06/19/2011 Normal [facility] URINALYSIS UA Spec Grav 1.015 <=1.030 06/19/2011 Normal [facility] URINALYSIS UA Color Yellow *NA* (06/19/2011 08:43:00) Yellow 06/19/2011 NA [facility] URINALYSIS UA Turbidity Clear (06/19/2011 08:43:00) Clear 06/19/2011 Normal [facility] URINALYSIS UA Blood Small *ABN* (06/19/2011 08:43:00) Negative 06/19/2011 ABN [facility] URINALYSIS UA WBC 6-10 /HPF *ABN* (06/19/2011 08:43:00) None Seen 06/19/2011 ABN [facility] URINALYSIS Micro? Performed (06/19/2011 08:43:00) 06/19/2011 Normal [facility] URINALYSIS UA Sq Epi Few /LPF (06/19/2011 08:43:00) Few 06/19/2011 Normal [facility] URINALYSIS UA Bacteria Moderate /HPF (06/19/2011 08:43:00) None Seen 06/19/2011 Normal [facility] URINALYSIS UA RBC 0-2 /HPF (06/19/2011 08:43:00) 0 - 2 06/19/2011 Normal [facility] Urine color determination YELLOW YELLOW [facility] Urine clarity CLEAR CLEAR [facility] Specific gravity of Urine by Test strip 1.010 1.010 - 1.025 [facility] Urine pH measurement by automated test strip 6 5 - 7 [facility] Urine leukocyte esterase detection by dipstick NEGATIVE NEGATIVE [facility] Urine nitrite detection NEGATIVE NEGATIVE [facility] Urine protein measurement by test strip (mass/volume) NEGATIVE NEGATIVE [facility] Urine glucose detection NEGATIVE NEGATIVE [facility] Urine ketones detection by automated test strip NEGATIVE NEGATIVE [facility] Urine urobilinogen measurement by test strip (mass/volume) 0.2 0.2 - 1 [facility] Urine total bilirubin measurement (mass/volume) NEGATIVE NEGATIVE [facility] Urine erythrocytes detection NEGATIVE NEGATIVE [facility] Automated urine sediment leukocyte count by microscopy (number/high power field) 6-10 0 - 5 [facility] Erythrocytes detection in urine sediment by light microscopy NONE 0 - 5 [facility] Bacteria detection in urine sediment by light microscopy NONE NONE [facility] Epithelial cells detection in urine sediment by light microscopy FEW NONE [facility] Bacterial urine culture Urine Culture [facility] Vital Signs Vital Sign Value Date Comments Source Respitory Rate 15 10/27/2018 [facility] Systolic (mm Hg) 118 10/27/2018 [facility] Diastolic (mm Hg) 88 10/27/2018 [facility] Systolic (mm Hg) 121 10/27/2018 [facility] Diastolic (mm Hg) 76 10/27/2018 [facility] Respitory Rate 18 10/27/2018 [facility] BMI Calculated 37.84 10/27/2018 [facility] Weight 100 10/27/2018 [facility] Height 162.56 cm 10/27/2018 [facility] Systolic (mm Hg) 115 10/27/2018 [facility] Diastolic (mm Hg) 80 10/27/2018 [facility] Heart Rate 95 10/27/2018 [facility] Temperature Oral (F) 98 F 10/27/2018 [facility] Respitory Rate 18 10/27/2018 [facility] Systolic (mm Hg) 112 10/14/2018 [facility] Diastolic (mm Hg) 62 10/14/2018 [facility] Respitory Rate 17 10/14/2018 [facility] Systolic (mm Hg) 108 10/14/2018 [facility] Diastolic (mm Hg) 80 10/14/2018 [facility] Respitory Rate 18 10/14/2018 [facility] Respitory Rate 21 10/14/2018 [facility] BMI Calculated 37.84 10/14/2018 [facility] Weight 100 10/14/2018 [facility] Temperature Oral (F) 98.3 F 10/14/2018 [facility] Height 162.56 cm 10/14/2018 [facility] Systolic (mm Hg) 117 10/14/2018 [facility] Diastolic (mm Hg) 74 10/14/2018 [facility] Heart Rate 110 10/14/2018 [facility] Temperature Oral (F) 98.3 F 09/29/2018 [facility] Respitory Rate 18 09/29/2018 [facility] Heart Rate 80 09/29/2018 [facility] Systolic (mm Hg) 115 09/29/2018 [facility] Diastolic (mm Hg) 65 09/29/2018 [facility] BMI Calculated 37.84 09/29/2018 [facility] Weight 100 09/29/2018 [facility] Height 162.56 cm 09/29/2018 [facility] Heart Rate 105 09/29/2018 [facility] Respitory Rate 18 09/29/2018 [facility] Systolic (mm Hg) 124 09/29/2018 [facility] Diastolic (mm Hg) 74 09/29/2018 [facility] Temperature Oral (F) 98.2 F 09/29/2018 [facility] Weight 100 09/09/2018 [facility] Height 162.56 cm 09/09/2018 [facility] BMI Calculated 37.84 09/09/2018 [facility] Systolic (mm Hg) 122 09/09/2018 [facility] Diastolic (mm Hg) 77 09/09/2018 [facility] Heart Rate 104 09/09/2018 [facility] Respitory Rate 16 09/09/2018 [facility] Temperature Oral (F) 98.2 F 09/09/2018 [facility] Weight 100 08/30/2018 [facility] Height 162.56 cm 08/30/2018 [facility] BMI Calculated 37.84 08/30/2018 [facility] Heart Rate 82 08/30/2018 [facility] Respitory Rate 18 08/30/2018 [facility] Temperature Oral (F) 97.9 F 08/30/2018 [facility] Systolic (mm Hg) 118 08/30/2018 [facility] Diastolic (mm Hg) 83 08/30/2018 [facility] Respitory Rate 23 08/26/2018 [facility] Systolic (mm Hg) 119 08/26/2018 [facility] Diastolic (mm Hg) 90 08/26/2018 [facility] Temperature Oral (F) 98.2 F 08/26/2018 [facility] Heart Rate 83 08/26/2018 [facility] Systolic (mm Hg) 113 08/26/2018 [facility] Diastolic (mm Hg) 80 08/26/2018 [facility] Respitory Rate 17 08/26/2018 [facility] Weight 100 08/26/2018 [facility] Height 162.56 cm 08/26/2018 [facility] Temperature Oral (F) 98.1 F 08/26/2018 [facility] BMI Calculated 37.84 08/26/2018 [facility] Systolic (mm Hg) 125 08/26/2018 [facility] Diastolic (mm Hg) 71 08/26/2018 [facility] Heart Rate 100 08/26/2018 [facility] Respitory Rate 16 08/26/2018 [facility] Respitory Rate 22 08/21/2018 [facility] Systolic (mm Hg) 114 08/21/2018 [facility] Diastolic (mm Hg) 71 08/21/2018 [facility] Weight 100 08/21/2018 [facility] BMI Calculated 37.84 08/21/2018 [facility] Height 162.56 cm 08/21/2018 [facility] Temperature Oral (F) 98.4 F 08/21/2018 [facility] Respitory Rate 16 08/21/2018 [facility] Heart Rate 106 08/21/2018 [facility] Systolic (mm Hg) 116 08/21/2018 [facility] Diastolic (mm Hg) 79 08/21/2018 [facility] Temperature Oral (F) 98.4 F 08/06/2018 [facility] Heart Rate 89 08/06/2018 [facility] Respitory Rate 16 08/06/2018 [facility] Systolic (mm Hg) 136 08/06/2018 [facility] Diastolic (mm Hg) 78 08/06/2018 [facility] Weight 100 08/06/2018 [facility] BMI Calculated 37.84 08/06/2018 [facility] Height 162.56 cm 08/06/2018 [facility] Heart Rate 92 08/06/2018 [facility] Respitory Rate 16 08/06/2018 [facility] Temperature Oral (F) 98.7 F 08/06/2018 [facility] Systolic (mm Hg) 131 08/06/2018 [facility] Diastolic (mm Hg) 81 08/06/2018 [facility] Temperature Oral (F) 98.2 F 08/04/2018 [facility] Systolic (mm Hg) 106 08/04/2018 [facility] Diastolic (mm Hg) 68 08/04/2018 [facility] Respitory Rate 18 08/04/2018 [facility] Heart Rate 68 08/04/2018 [facility] Systolic (mm Hg) 116 08/04/2018 [facility] Diastolic (mm Hg) 85 08/04/2018 [facility] Heart Rate 74 08/04/2018 [facility] Respitory Rate 18 08/04/2018 [facility] Temperature Oral (F) 98.3 F 08/04/2018 [facility] Weight 100 08/04/2018 [facility] Height 162.56 cm 08/04/2018 [facility] Temperature Oral (F) 97.8 F 08/04/2018 [facility] Systolic (mm Hg) 152 08/04/2018 [facility] Diastolic (mm Hg) 100 08/04/2018 [facility] BMI Calculated 37.84 08/04/2018 [facility] Heart Rate 102 08/04/2018 [facility] Respitory Rate 18 08/04/2018 [facility] Diastolic (mm Hg) 66 07/28/2018 [facility] Systolic [...] 73 05/05/2018 [facility] Weight 233.99 05/05/2018 [facility] Heart Rate 72 04/16/2018 [facility] Respitory Rate 15 04/16/2018 [facility] Systolic (mm Hg) 145 04/16/2018 [facility] Diastolic (mm Hg) 98 04/16/2018 [facility] Temperature Oral (F) 98 F 04/16/2018 [facility] Systolic (mm Hg) 134 04/16/2018 [facility] Diastolic (mm Hg) 87 04/16/2018 [facility] Heart Rate 97 04/16/2018 [facility] Respitory Rate 16 04/16/2018 [facility] BMI Calculated 37.84 04/16/2018 [facility] Weight 100 04/16/2018 [facility] Systolic (mm Hg) 128 04/16/2018 [facility] Diastolic (mm Hg) 76 04/16/2018 [facility] Heart Rate 111 04/16/2018 [facility] Respitory Rate 18 04/16/2018 [facility] Height 162.56 cm 04/16/2018 [facility] Temperature Oral (F) 97.6 F 04/16/2018 [facility] Diastolic (mm Hg) 66 04/14/2018 [facility] Systolic (mm Hg) 98 04/14/2018 [facility] Height 64 04/14/2018 [facility] Heart Rate 88 04/14/2018 [facility] Weight 230 04/14/2018 [facility] Weight 100 04/05/2018 [facility] Height 162.56 cm 04/05/2018 [facility] BMI Calculated 37.84 04/05/2018 [facility] Heart Rate 99 04/05/2018 [facility] Systolic (mm Hg) 119 04/05/2018 [facility] Diastolic (mm Hg) 82 04/05/2018 [facility] Temperature Oral (F) 98.7 F 04/05/2018 [facility] Respitory Rate 18 04/05/2018 [facility] Respitory Rate 16 03/21/2018 [facility] Temperature Oral (F) 98.1 F 03/21/2018 [facility] Heart Rate 71 03/21/2018 [facility] Systolic (mm Hg) 123 03/21/2018 [facility] Diastolic (mm Hg) 85 03/21/2018 [facility] Height 162.56 cm 03/21/2018 [facility] BMI Calculated 37.84 03/21/2018 [facility] Weight 100 03/21/2018 [facility] Temperature Oral (F) 98.1 F 03/21/2018 [facility] Respitory Rate 18 03/21/2018 [facility] Heart Rate 111 03/21/2018 [facility] Systolic (mm Hg) 135 03/21/2018 [facility] Diastolic (mm Hg) 93 03/21/2018 [facility] Systolic (mm Hg) 177 03/19/2018 [facility] Diastolic (mm Hg) 88 03/19/2018 [facility] Heart Rate 78 03/19/2018 [facility] Respitory Rate 16 03/19/2018 [facility] Temperature Oral (F) 98.5 F 03/19/2018 [facility] Weight 105.545 03/19/2018 [facility] Temperature Oral (F) 97.7 F 03/19/2018 [facility] Heart Rate 105 03/19/2018 [facility] Respitory Rate 19 03/19/2018 [facility] Systolic (mm Hg) 133 03/19/2018 [facility] Diastolic (mm Hg) 80 03/19/2018 [facility] Temperature Oral (F) 97.9 F 03/18/2018 [facility] Heart Rate 76 03/18/2018 [facility] Systolic (mm Hg) 141 03/18/2018 [facility] Diastolic (mm Hg) 84 03/18/2018 [facility] Respitory Rate 18 03/18/2018 [facility] Heart Rate 105 03/18/2018 [facility] Respitory Rate 18 03/18/2018 [facility] Temperature Oral (F) 97.8 F 03/18/2018 [facility] Systolic (mm Hg) 120 03/18/2018 [facility] Diastolic (mm Hg) 80 03/18/2018 [facility] Diastolic (mm Hg) 72 03/17/2018 [facility] Systolic (mm Hg) 101 03/17/2018 [facility] Height 64 03/17/2018 [facility] Heart Rate 94 03/17/2018 [facility] Weight 229 03/17/2018 [facility] Weight 104.091 03/03/2018 [facility] BMI Calculated 39.39 03/03/2018 [facility] Height 162.56 cm 03/03/2018 [facility] Heart Rate 96 03/03/2018 [facility] Respitory Rate 17 03/03/2018 [facility] Temperature Oral (F) 98.2 F 03/03/2018 [facility] Systolic (mm Hg) 102 03/03/2018 [facility] Diastolic (mm Hg) 76 03/03/2018 [facility] Respitory Rate 18 03/02/2018 [facility] Heart Rate 78 03/02/2018 [facility] Systolic (mm Hg) 115 03/02/2018 [facility] Diastolic (mm Hg) 81 03/02/2018 [facility] Heart Rate 69 03/01/2018 [facility] Respitory Rate 18 03/01/2018 [facility] Temperature Oral (F) 97.8 F 03/01/2018 [facility] Systolic (mm Hg) 124 03/01/2018 [facility] Diastolic (mm Hg) 70 03/01/2018 [facility] Respitory Rate 18 02/22/2018 [facility] Heart Rate 84 02/22/2018 [facility] Temperature Oral (F) 98 F 02/22/2018 [facility] Systolic (mm Hg) 116 02/22/2018 [facility] Diastolic (mm Hg) 79 02/22/2018 [facility] BMI Calculated 37.84 02/22/2018 [facility] Height 162.56 cm 02/22/2018 [facility] Weight 100 02/22/2018 [facility] Respitory Rate 20 02/22/2018 [facility] Heart Rate 107 02/22/2018 [facility] Temperature Oral (F) 98.3 F 02/22/2018 [facility] Systolic (mm Hg) 113 02/22/2018 [facility] Diastolic (mm Hg) 71 02/22/2018 [facility] Systolic (mm Hg) 113 02/19/2018 [facility] Diastolic (mm Hg) 77 02/19/2018 [facility] Respitory Rate 16 02/19/2018 [facility] Temperature Oral (F) 97.9 F 02/19/2018 [facility] Heart Rate 76 02/19/2018 [facility] Respitory Rate 16 02/19/2018 [facility] Temperature Oral (F) 98.7 F 02/19/2018 [facility] Systolic (mm Hg) 130 02/19/2018 [facility] Diastolic (mm Hg) 82 02/19/2018 [facility] Heart Rate 102 02/19/2018 [facility] BMI Calculated 37.84 02/19/2018 [facility] Height 162.56 cm 02/19/2018 [facility] Weight 100 02/19/2018 [facility] Diastolic (mm Hg) 60 02/17/2018 [facility] Systolic (mm Hg) 91 02/17/2018 [facility] Height 64 02/17/2018 [facility] Heart Rate 89 02/17/2018 [facility] Weight 223 02/17/2018 [facility] Systolic (mm Hg) 141 02/14/2018 [facility] Diastolic (mm Hg) 82 02/14/2018 [facility] Respitory Rate 26 02/14/2018 [facility] Systolic (mm Hg) 118 02/14/2018 [facility] Diastolic (mm Hg) 75 02/14/2018 [facility] Respitory Rate 22 02/14/2018 [facility] Temperature Oral (F) 99.1 F 02/14/2018 [facility] Height 162.56 cm 02/14/2018 [facility] BMI Calculated 37.84 02/14/2018 [facility] Weight 100 02/14/2018 [facility] Heart Rate 95 02/14/2018 [facility] Respitory Rate 16 02/14/2018 [facility] Systolic (mm Hg) 115 02/14/2018 [facility] Diastolic (mm Hg) 68 02/14/2018 [facility] Diastolic (mm Hg) 67 02/05/2018 [facility] Systolic [...] Rate 74 12/09/2017 [facility] Weight 218 12/09/2017 [facility] Temperature Oral (F) 98.3 F 12/02/2017 [facility] Respitory Rate 18 12/02/2017 [facility] Systolic (mm Hg) 118 12/02/2017 [facility] Diastolic (mm Hg) 73 12/02/2017 [facility] Heart Rate 63 12/02/2017 [facility] Respitory Rate 18 12/02/2017 [facility] Heart Rate 69 12/02/2017 [facility] Heart Rate 79 12/02/2017 [facility] Systolic (mm Hg) 110 12/02/2017 [facility] Diastolic (mm Hg) 67 12/02/2017 [facility] [place] [facility] 99.091 12/02/2017 [facility] Height 162.56 cm 12/02/2017 [facility] BMI Calculated 37.5 12/02/2017 [facility] Respitory Rate 18 12/02/2017 [facility] Temperature Oral (F) 98.1 F 12/02/2017 [facility] Diastolic (mm Hg) 73 11/18/2017 [facility] Systolic (mm Hg) 109 11/18/2017 [facility] Height 64 11/18/2017 [facility] Heart Rate 74 11/18/2017 [facility] Weight 224 11/18/2017 [facility] Systolic (mm Hg) 117 10/26/2017 [facility] Diastolic (mm Hg) 68 10/26/2017 [facility] Respitory Rate 18 10/26/2017 [facility] Temperature Oral (F) 98.2 F 10/26/2017 [facility] Heart Rate 75 10/26/2017 [facility] Systolic (mm Hg) 108 10/26/2017 [facility] Diastolic (mm Hg) 63 10/26/2017 [facility] Respitory Rate 18 10/26/2017 [facility] Heart Rate 85 10/26/2017 [facility] Systolic (mm Hg) 123 10/26/2017 [facility] Diastolic (mm Hg) 70 10/26/2017 [facility] Temperature Oral (F) 98.4 F 10/26/2017 [facility] BMI Calculated 38.72 10/26/2017 [facility] Weight 102.33 10/26/2017 [facility] Temperature Oral (F) 98.9 F 10/26/2017 [facility] Heart Rate 92 10/26/2017 [facility] Respitory Rate 18 10/26/2017 [facility] Height 162.56 cm 10/26/2017 [facility] Diastolic (mm Hg) 81 10/21/2017 [facility] Systolic [...] 71 08/28/2017 [facility] Weight 222.25 08/28/2017 [facility] Systolic (mm Hg) 132 08/25/2017 [facility] Diastolic (mm Hg) 89 08/25/2017 [facility] Respitory Rate 18 08/25/2017 [facility] Heart Rate 68 08/25/2017 [facility] Temperature Oral (F) 98.1 F 08/25/2017 [facility] Weight 100 08/25/2017 [facility] Height 162.56 cm 08/25/2017 [facility] Temperature Oral (F) 98.1 F 08/25/2017 [facility] Respitory Rate 22 08/25/2017 [facility] BMI Calculated 37.84 08/25/2017 [facility] Systolic (mm Hg) 137 08/25/2017 [facility] Diastolic (mm Hg) 89 08/25/2017 [facility] Heart Rate 66 08/25/2017 [facility] Respitory Rate 16 07/10/2017 [facility] Heart Rate 68 07/10/2017 [facility] Temperature Oral (F) 98.5 F 07/10/2017 [facility] Systolic (mm Hg) 138 07/10/2017 [facility] Diastolic (mm Hg) 84 07/10/2017 [facility] Respitory Rate 18 07/10/2017 [facility] Temperature Oral (F) 98.1 F 07/10/2017 [facility] Weight 100 07/10/2017 [facility] Height 162.56 cm 07/10/2017 [facility] BMI Calculated 37.84 07/10/2017 [facility] Systolic (mm Hg) 123 07/10/2017 [facility] Diastolic (mm Hg) 87 07/10/2017 [facility] Heart Rate 90 07/10/2017 [facility] Respitory Rate 18 06/10/2017 [facility] Systolic (mm Hg) 119 06/10/2017 [facility] Diastolic (mm Hg) 77 06/10/2017 [facility] Temperature Oral (F) 98.1 F 06/10/2017 [facility] Heart Rate 67 06/10/2017 [facility] Weight 100 06/10/2017 [facility] BMI Calculated 37.84 06/10/2017 [facility] Height 162.56 cm 06/10/2017 [facility] Temperature Oral (F) 98.2 F 06/10/2017 [facility] Heart Rate 102 06/10/2017 [facility] Respitory Rate 18 06/10/2017 [facility] Systolic (mm Hg) 102 06/10/2017 [facility] Diastolic (mm Hg) 65 06/10/2017 [facility] Systolic (mm Hg) 133 04/21/2017 [facility] Diastolic (mm Hg) 67 04/21/2017 [facility] Respitory Rate 22 04/21/2017 [facility] Temperature Oral (F) 98 F 04/21/2017 [facility] Systolic (mm Hg) 110 04/21/2017 [facility] Diastolic (mm Hg) 72 04/21/2017 [facility] Respitory Rate 23 04/21/2017 [facility] Respitory Rate 16 04/21/2017 [facility] Temperature Oral (F) 98.2 F 04/21/2017 [facility] Systolic (mm Hg) 109 04/21/2017 [facility] Diastolic (mm Hg) 78 04/21/2017 [facility] Heart Rate 93 04/21/2017 [facility] Systolic (mm Hg) 98 04/11/2017 [facility] Diastolic (mm Hg) 56 04/11/2017 [facility] Respitory Rate 18 04/11/2017 [facility] Systolic (mm Hg) 97 04/11/2017 [facility] Diastolic (mm Hg) 59 04/11/2017 [facility] Respitory Rate 16 04/11/2017 [facility] BMI Calculated 37.84 04/11/2017 [facility] Weight 100 04/11/2017 [facility] Respitory Rate 18 04/11/2017 [facility] Systolic (mm Hg) 113 04/11/2017 [facility] Diastolic (mm Hg) 80 04/11/2017 [facility] Heart Rate 95 04/11/2017 [facility] Height 162.56 cm 04/11/2017 [facility] Temperature Oral (F) 98.1 F 04/11/2017 [facility] Respitory Rate 20 04/03/2017 [facility] Temperature Oral (F) 97.9 F 04/03/2017 [facility] Heart Rate 71 04/03/2017 [facility] Systolic (mm Hg) 109 04/03/2017 [facility] Diastolic (mm Hg) 74 04/03/2017 [facility] Height 162.56 cm 04/03/2017 [facility] Respitory Rate 18 04/03/2017 [facility] Heart Rate 103 04/03/2017 [facility] Temperature Oral (F) 98.3 F 04/03/2017 [facility] Systolic (mm Hg) 145 04/03/2017 [facility] Diastolic (mm Hg) 74 04/03/2017 [facility] Weight 90.909 04/03/2017 [facility] BMI Calculated 34.4 04/03/2017 [facility] Temperature Oral (F) 98.1 F 03/24/2017 [facility] Respitory Rate 16 03/24/2017 [facility] Heart Rate 73 03/24/2017 [facility] Systolic (mm Hg) 109 03/24/2017 [facility] Diastolic (mm Hg) 79 03/24/2017 [facility] BMI Calculated 34.4 03/24/2017 [facility] Weight 90.909 03/24/2017 [facility] Height 162.56 cm 03/24/2017 [facility] Heart Rate 91 03/24/2017 [facility] Temperature Oral (F) 98.2 F 03/24/2017 [facility] Respitory Rate 17 03/24/2017 [facility] Systolic (mm Hg) 135 03/24/2017 [facility] Diastolic (mm Hg) 89 03/24/2017 [facility] Systolic (mm Hg) 116 03/11/2017 [facility] Diastolic (mm Hg) 78 03/11/2017 [facility] Respitory Rate 16 03/11/2017 [facility] Heart Rate 98 03/11/2017 [facility] Temperature Oral (F) 98 F 03/11/2017 [facility] Weight 90.909 03/11/2017 [facility] Height 162.56 cm 03/11/2017 [facility] BMI Calculated 34.4 03/11/2017 [facility] Temperature Oral (F) 97.7 F 03/11/2017 [facility] Heart Rate 97 03/11/2017 [facility] Respitory Rate 18 03/11/2017 [facility] Systolic (mm Hg) 118 03/11/2017 [facility] Diastolic (mm Hg) 79 03/11/2017 [facility] Respitory Rate 16 01/13/2017 [facility] Systolic (mm Hg) 126 01/13/2017 [facility] Diastolic (mm Hg) 70 01/13/2017 [facility] Heart Rate 74 01/13/2017 [facility] Temperature Oral (F) 99.5 F 01/13/2017 [facility] Temperature Oral (F) 98.2 F 01/13/2017 [facility] Respitory Rate 18 01/13/2017 [facility] Heart Rate 94 01/13/2017 [facility] Weight 90.909 01/13/2017 [facility] Height 162.56 cm 01/13/2017 [facility] BMI Calculated 34.4 01/13/2017 [facility] Systolic (mm Hg) 132 01/13/2017 [facility] Diastolic (mm Hg) 80 01/13/2017 [facility] Respitory Rate 18 11/20/2016 [facility] Systolic (mm Hg) 100 11/20/2016 [facility] Diastolic (mm Hg) 55 11/20/2016 [facility] Temperature Oral (F) 97.9 F 11/20/2016 [facility] Heart Rate 66 11/20/2016 [facility] BMI Calculated 30.96 11/20/2016 [facility] Weight 81.818 11/20/2016 [facility] Height 162.56 cm 11/20/2016 [facility] Heart Rate 90 11/20/2016 [facility] Respitory Rate 20 11/20/2016 [facility] Temperature Oral (F) 98.3 F 11/20/2016 [facility] Systolic (mm Hg) 125 11/20/2016 [facility] Diastolic (mm Hg) 77 11/20/2016 [facility] Temperature Oral (F) 98.4 F 11/08/2016 [facility] Heart Rate 72 11/08/2016 [facility] Systolic (mm Hg) 128 11/08/2016 [facility] Diastolic (mm Hg) 74 11/08/2016 [facility] Respitory Rate 18 11/08/2016 [facility] Weight 81.818 11/08/2016 [facility] BMI Calculated 30.96 11/08/2016 [facility] Temperature Oral (F) 98.4 F 11/08/2016 [facility] Height 162.56 cm 11/08/2016 [facility] Respitory Rate 18 11/08/2016 [facility] Heart Rate 103 11/08/2016 [facility] Systolic (mm Hg) 130 11/08/2016 [facility] Diastolic (mm Hg) 83 11/08/2016 [facility] Heart Rate 65 10/22/2016 [facility] Temperature Oral (F) 97.6 F 10/22/2016 [facility] Respitory Rate 17 10/22/2016 [facility] Systolic (mm Hg) 116 10/22/2016 [facility] Diastolic (mm Hg) 73 10/22/2016 [facility] Systolic (mm Hg) 127 10/22/2016 [facility] Diastolic (mm Hg) 74 10/22/2016 [facility] Respitory Rate 20 10/22/2016 [facility] Heart Rate 77 10/22/2016 [facility] Height 165.1 cm 10/22/2016 [facility] Weight 68.182 10/22/2016 [facility] Temperature Oral (F) 98.4 F 10/22/2016 [facility] BMI Calculated 25.01 10/22/2016 [facility] Systolic (mm Hg) 130 10/14/2016 [facility] Diastolic (mm Hg) 82 10/14/2016 [facility] Temperature Oral (F) 98 F 10/14/2016 [facility] Respitory Rate 18 10/14/2016 [facility] Heart Rate 83 10/14/2016 [facility] Height 162.56 cm 10/14/2016 [facility] Temperature Oral (F) 97.8 F 10/14/2016 [facility] Respitory Rate 18 10/14/2016 [facility] Heart Rate 82 10/14/2016 [facility] BMI Calculated 30.96 10/14/2016 [facility] Weight 81.818 10/14/2016 [facility] Systolic (mm Hg) 128 10/14/2016 [facility] Diastolic (mm Hg) 84 10/14/2016 [facility] Systolic (mm Hg) 115 06/12/2016 [facility] Diastolic (mm Hg) 62 06/12/2016 [facility] Temperature Oral (F) 98.3 F 06/12/2016 [facility] Respitory Rate 16 06/12/2016 [facility] Respitory Rate 14 06/12/2016 [facility] Systolic (mm Hg) 125 06/12/2016 [facility] Diastolic (mm Hg) 66 06/12/2016 [facility] Systolic (mm Hg) 119 06/12/2016 [facility] Diastolic (mm Hg) 68 06/12/2016 [facility] Heart Rate 76 06/12/2016 [facility] Respitory Rate 14 06/12/2016 [facility] Weight 81.818 06/12/2016 [facility] Temperature Oral (F) 98.1 F 06/12/2016 [facility] Heart Rate 78 06/12/2016 [facility] BMI Calculated 30.96 06/12/2016 [facility] Height 162.56 cm 06/12/2016 [facility] Temperature Oral (F) 98.2 F 06/11/2016 [facility] Heart Rate 62 06/11/2016 [facility] Respitory Rate 16 06/11/2016 [facility] Systolic (mm Hg) 115 06/11/2016 [facility] Diastolic (mm Hg) 74 06/11/2016 [facility] Temperature Oral (F) 98.3 F 06/11/2016 [facility] Systolic (mm Hg) 118 06/11/2016 [facility] Diastolic (mm Hg) 78 06/11/2016 [facility] Respitory Rate 16 06/11/2016 [facility] Heart Rate 75 06/11/2016 [facility] Respitory Rate 18 06/11/2016 [facility] Heart Rate 77 06/11/2016 [facility] Systolic (mm Hg) 140 06/11/2016 [facility] Diastolic (mm Hg) 57 06/11/2016 [facility] Temperature Oral (F) 98.8 F 06/10/2016 [facility] Weight 81.818 06/10/2016 [facility] BMI Calculated 31.95 06/10/2016 [facility] Height 160.02 cm 06/10/2016 [facility] Systolic (mm Hg) 103 02/13/2016 [facility] Diastolic (mm Hg) 66 02/13/2016 [facility] Respitory Rate 16 02/13/2016 [facility] Temperature Oral (F) 98.0 F 02/13/2016 [facility] Heart Rate 55 02/13/2016 [facility] Systolic (mm Hg) 116 02/13/2016 [facility] Diastolic (mm Hg) 74 02/13/2016 [facility] Respitory Rate 16 02/13/2016 [facility] Temperature Oral (F) 97.9 F 02/13/2016 [facility] Heart Rate 71 02/13/2016 [facility] Respitory Rate 16 02/13/2016 [facility] Systolic (mm Hg) 103 02/13/2016 [facility] Diastolic (mm Hg) 61 02/13/2016 [facility] Heart Rate 63 02/13/2016 [facility] Temperature Oral (F) 98.2 F 02/13/2016 [facility] Height 162.56 cm 02/12/2016 [facility] Weight 86.818 02/12/2016 [facility] BMI Calculated 32.85 02/12/2016 [facility] Weight 86.818 02/12/2016 [facility] BMI Calculated 30.96 02/11/2016 [facility] Weight 81.818 02/11/2016 [facility] Height 162.56 cm 02/11/2016 [facility] Respitory Rate 18 02/01/2016 [facility] Temperature Oral (F) 98.7 F 02/01/2016 [facility] Heart Rate 61 02/01/2016 [facility] Systolic (mm Hg) 116 02/01/2016 [facility] Diastolic (mm Hg) 62 02/01/2016 [facility] Respitory Rate 18 02/01/2016 [facility] Heart Rate 72 02/01/2016 [facility] Temperature Oral (F) 98.2 F 02/01/2016 [facility] Weight 81.818 02/01/2016 [facility] Height 162.56 cm 02/01/2016 [facility] BMI Calculated 30.96 02/01/2016 [facility] Systolic (mm Hg) 129 02/01/2016 [facility] Diastolic (mm Hg) 79 02/01/2016 [facility] Heart Rate 67 01/27/2016 [facility] Temperature Oral (F) 97.9 F 01/27/2016 [facility] Respitory Rate 18 01/27/2016 [facility] Systolic (mm Hg) 127 01/27/2016 [facility] Diastolic (mm Hg) 82 01/27/2016 [facility] Respitory Rate 18 01/27/2016 [facility] Systolic (mm Hg) 107 01/27/2016 [facility] Diastolic (mm Hg) 70 01/27/2016 [facility] Respitory Rate 18 01/27/2016 [facility] Heart Rate 69 01/27/2016 [facility] Temperature Oral (F) 98.5 F 01/27/2016 [facility] Temperature Oral (F) 98.4 F 01/27/2016 [facility] Systolic (mm Hg) 103 01/27/2016 [facility] Diastolic (mm Hg) 66 01/27/2016 [facility] Heart Rate 73 01/27/2016 [facility] Height 162.56 cm 01/26/2016 [facility] Weight 90.17 01/26/2016 [facility] BMI Calculated 34.12 01/26/2016 [facility] Weight 81.818 01/25/2016 [facility] BMI Calculated 30.96 01/25/2016 [facility] Height 162.56 cm 01/25/2016 [facility] Temperature Oral (F) 98.9 F 11/06/2015 [facility] Heart Rate 80 11/06/2015 [facility] Respitory Rate 18 11/06/2015 [facility] Systolic (mm Hg) 116 11/06/2015 [facility] Diastolic (mm Hg) 74 11/06/2015 [facility] Heart Rate 72 11/06/2015 [facility] Systolic (mm Hg) 119 11/06/2015 [facility] Diastolic (mm Hg) 78 11/06/2015 [facility] Respitory Rate 18 11/06/2015 [facility] Temperature Oral (F) 99.1 F 11/06/2015 [facility] Systolic (mm Hg) 106 11/06/2015 [facility] Diastolic (mm Hg) 71 11/06/2015 [facility] Respitory Rate 18 11/06/2015 [facility] Temperature Oral (F) 98.6 F 11/06/2015 [facility] Heart Rate 70 11/06/2015 [facility] Height 162.56 cm 11/04/2015 [facility] Weight 81.818 11/04/2015 [facility] BMI Calculated 30.96 11/04/2015 [facility] Height 162.56 cm 11/04/2015 [facility] BMI Calculated 30.96 11/04/2015 [facility] Weight 81.818 11/04/2015 [facility] Respitory Rate 16 08/10/2015 [facility] Systolic (mm Hg) 98 08/10/2015 [facility] Diastolic (mm Hg) 63 08/10/2015 [facility] Temperature Oral (F) 98.1 F 08/10/2015 [facility] Heart Rate 71 08/10/2015 [facility] Systolic (mm Hg) 110 08/10/2015 [facility] Diastolic (mm Hg) 55 08/10/2015 [facility] Heart Rate 72 08/10/2015 [facility] Respitory Rate 18 08/10/2015 [facility] Temperature Oral (F) 98.2 F 08/10/2015 [facility] Height 162.56 cm 08/09/2015 [facility] Weight 81.818 08/09/2015 [facility] BMI Calculated 30.96 08/09/2015 [facility] Temperature Oral (F) 98.2 F 08/09/2015 [facility] Heart Rate 68 08/09/2015 [facility] Respitory Rate 18 08/09/2015 [facility] Systolic (mm Hg) 119 08/09/2015 [facility] Diastolic (mm Hg) 79 08/09/2015 [facility] Temperature Oral (F) 97.8 F 08/08/2015 [facility] Respitory Rate 16 08/08/2015 [facility] Systolic (mm Hg) 110 08/08/2015 [facility] Diastolic (mm Hg) 70 08/08/2015 [facility] Heart Rate 60 08/08/2015 [facility] Heart Rate 63 08/08/2015 [facility] Systolic (mm Hg) 108 08/08/2015 [facility] Diastolic (mm Hg) 64 08/08/2015 [facility] Temperature Oral (F) 97.6 F 08/08/2015 [facility] Respitory Rate 18 08/08/2015 [facility] Temperature Oral (F) 98.1 F 08/08/2015 [facility] BMI Calculated 30.96 08/08/2015 [facility] Weight 81.818 08/08/2015 [facility] Height 162.56 cm 08/08/2015 [facility] Heart Rate 65 08/08/2015 [facility] Respitory Rate 18 08/08/2015 [facility] Systolic (mm Hg) 124 08/08/2015 [facility] Diastolic (mm Hg) 79 08/08/2015 [facility] Respitory Rate 18 05/11/2015 [facility] Systolic (mm Hg) 132 05/11/2015 [facility] Diastolic (mm Hg) 78 05/11/2015 [facility] Heart Rate 80 05/11/2015 [facility] Temperature Oral (F) 98.1 F 05/11/2015 [facility] Temperature Oral (F) 98.0 F 05/11/2015 [facility] Systolic (mm Hg) 126 05/11/2015 [facility] Diastolic (mm Hg) 84 05/11/2015 [facility] Heart Rate 73 05/11/2015 [facility] Respitory Rate 18 05/11/2015 [facility] Height 162.56 cm 05/11/2015 [facility] Weight 81.818 05/11/2015 [facility] BMI Calculated 30.96 05/11/2015 [facility] Heart Rate 60 05/09/2015 [facility] Respitory Rate 18 05/09/2015 [facility] Temperature Oral (F) 98.0 F 05/09/2015 [facility] Systolic (mm Hg) 98 05/09/2015 [facility] Diastolic (mm Hg) 58 05/09/2015 [facility] Heart Rate 68 05/09/2015 [facility] Respitory Rate 18 05/09/2015 [facility] Systolic (mm Hg) 107 05/09/2015 [facility] Diastolic (mm Hg) 72 05/09/2015 [facility] Weight 81.818 05/09/2015 [facility] BMI Calculated 30.96 05/09/2015 [facility] Height 162.56 cm 05/09/2015 [facility] Temperature Oral (F) 97.9 F 05/09/2015 [facility] Temperature Oral (F) 98.0 F 05/02/2015 [facility] Heart Rate 73 05/02/2015 [facility] Systolic (mm Hg) 107 05/02/2015 [facility] Diastolic (mm Hg) 63 05/02/2015 [facility] Respitory Rate 18 05/02/2015 [facility] Temperature Oral (F) 98.2 F 05/02/2015 [facility] Weight 81.818 05/02/2015 [facility] BMI Calculated 30.96 05/02/2015 [facility] Height 162.56 cm 05/02/2015 [facility] Heart Rate 75 05/02/2015 [facility] Respitory Rate 18 05/02/2015 [facility] Systolic (mm Hg) 125 05/02/2015 [facility] Diastolic (mm Hg) 80 05/02/2015 [facility] Temperature Oral (F) 97.8 F 03/29/2015 [facility] Systolic (mm Hg) 119 03/29/2015 [facility] Diastolic (mm Hg) 67 03/29/2015 [facility] Respitory Rate 18 03/29/2015 [facility] Heart Rate 98 03/29/2015 [facility] Height 162.56 cm 03/29/2015 [facility] BMI Calculated 30.96 03/29/2015 [facility] Heart Rate 63 03/29/2015 [facility] Respitory Rate 18 03/29/2015 [facility] Temperature Oral (F) 98.2 F 03/29/2015 [facility] Weight 81.818 03/29/2015 [facility] Systolic (mm Hg) 115 03/29/2015 [facility] Diastolic (mm Hg) 73 03/29/2015 [facility] Respitory Rate 18 01/28/2015 [facility] Heart Rate 60 01/28/2015 [facility] Temperature Oral (F) 98.2 F 01/28/2015 [facility] Systolic (mm Hg) 111 01/28/2015 [facility] Diastolic (mm Hg) 75 01/28/2015 [facility] Weight 81.818 01/28/2015 [facility] Temperature Oral (F) 98.3 F 01/28/2015 [facility] Respitory Rate 18 01/28/2015 [facility] Systolic (mm Hg) 113 01/28/2015 [facility] Diastolic (mm Hg) 67 01/28/2015 [facility] Heart Rate 77 01/28/2015 [facility] Heart Rate 52 01/18/2015 [facility] Temperature Oral (F) 98.1 F 01/18/2015 [facility] Systolic (mm Hg) 124 01/18/2015 [facility] Diastolic (mm Hg) 75 01/18/2015 [facility] Respitory Rate 18 01/18/2015 [facility] Weight 81.818 01/18/2015 [facility] Height 162.56 cm 01/18/2015 [facility] BMI Calculated 30.96 01/18/2015 [facility] Temperature Oral (F) 98.3 F 01/18/2015 [facility] Respitory Rate 18 01/18/2015 [facility] Heart Rate 64 01/18/2015 [facility] Systolic (mm Hg) 107 01/18/2015 [facility] Diastolic (mm Hg) 63 01/18/2015 [facility] Heart Rate 68 01/13/2015 [facility] Respitory Rate 20 01/13/2015 [facility] Systolic (mm Hg) 119 01/13/2015 [facility] Diastolic (mm Hg) 68 01/13/2015 [facility] Temperature Oral (F) 98.2 F 01/13/2015 [facility] Heart Rate 59 01/13/2015 [facility] Systolic (mm Hg) 111 01/13/2015 [facility] Diastolic (mm Hg) 58 01/13/2015 [facility] Respitory Rate 18 01/13/2015 [facility] Heart Rate 63 01/13/2015 [facility] Systolic (mm Hg) 101 01/13/2015 [facility] Diastolic (mm Hg) 64 01/13/2015 [facility] Respitory Rate 18 01/13/2015 [facility] Weight 81.818 01/13/2015 [facility] BMI Calculated 30.96 01/13/2015 [facility] Height 162.56 cm 01/13/2015 [facility] Temperature Oral (F) 98.4 F 01/13/2015 [facility] Systolic (mm Hg) 99 11/21/2014 [facility] Diastolic (mm Hg) 61 11/21/2014 [facility] Respitory Rate 18 11/21/2014 [facility] Temperature Oral (F) 98.4 F 11/21/2014 [facility] Heart Rate 70 11/21/2014 [facility] Respitory Rate 17 11/21/2014 [facility] Heart Rate 64 11/21/2014 [facility] Systolic (mm Hg) 98 11/21/2014 [facility] Diastolic (mm Hg) 68 11/21/2014 [facility] Systolic (mm Hg) 117 11/21/2014 [facility] Diastolic (mm Hg) 80 11/21/2014 [facility] Respitory Rate 18 11/21/2014 [facility] Heart Rate 77 11/21/2014 [facility] Weight 81.818 11/21/2014 [facility] Height 162.56 cm 11/21/2014 [facility] BMI Calculated 30.96 11/21/2014 [facility] Temperature Oral (F) 98.4 F 11/21/2014 [facility] Systolic (mm Hg) 111 09/09/2014 [facility] Diastolic (mm Hg) 68 09/09/2014 [facility] Respitory Rate 18 09/09/2014 [facility] Heart Rate 74 09/09/2014 [facility] Temperature Oral (F) 98.7 F 09/09/2014 [facility] Respitory Rate 16 09/09/2014 [facility] Temperature Oral (F) 98.7 F 09/09/2014 [facility] Height 162.56 cm 09/09/2014 [facility] BMI Calculated 30.96 09/09/2014 [facility] Weight 81.818 09/09/2014 [facility] Systolic (mm Hg) 129 09/09/2014 [facility] Diastolic (mm Hg) 81 09/09/2014 [facility] Heart Rate 99 09/09/2014 [facility] Respitory Rate 16 12/03/2013 [facility] Systolic (mm Hg) 113 12/03/2013 [facility] Respitory Rate 18 12/03/2013 [facility] Temperature Oral (F) 98.1 F 12/03/2013 [facility] Heart Rate 67 12/03/2013 [facility] Diastolic (mm Hg) 71 12/03/2013 [facility] Temperature Oral (F) 98.2 F 12/03/2013 [facility] Respitory Rate 18 12/03/2013 [facility] Heart Rate 85 12/03/2013 [facility] Systolic (mm Hg) 130 12/03/2013 [facility] Diastolic (mm Hg) 74 12/03/2013 [facility] Weight 81.818 12/02/2013 [facility] BMI Calculated 30.96 12/02/2013 [facility] Height 162.56 cm 12/02/2013 [facility] Weight 81.818 12/02/2013 [facility] Height 162.56 cm 12/02/2013 [facility] BMI Calculated 30.96 12/02/2013 [facility] Weight 81.818 08/13/2012 [facility] Height 162.56 cm 08/13/2012 [facility] Weight 81.818 07/15/2012 [facility] Height 162.56 cm 07/15/2012 [facility] Height 162.56 cm 07/02/2012 [facility] Weight 81.818 07/02/2012 [facility] Weight 81.818 06/23/2012 [facility] Height 162.56 cm 06/23/2012 [facility] Height 162.56 cm 04/11/2012 [facility] Weight 81.818 04/11/2012 [facility] Weight 81.818 03/28/2012 [facility] Height 162.56 cm 03/28/2012 [facility] Weight 81.818 03/25/2012 [facility] Height 162.56 cm 03/25/2012 [facility] Height 162.56 cm 12/02/2011 [facility] Weight 81.818 12/02/2011 [facility] Height 162.56 cm 08/13/2011 [facility] Weight 81.818 08/13/2011 [facility] Respitory Rate 18 06/19/2011 [facility] Diastolic (mm Hg) 76 06/19/2011 [facility] Heart Rate 85 06/19/2011 [facility] Systolic (mm Hg) 112 06/19/2011 [facility] Temperature Oral (F) 98.2 F 06/19/2011 [facility] Systolic (mm Hg) 117 06/19/2011 [facility] Diastolic (mm Hg) 67 06/19/2011 [facility] Heart Rate 65 06/19/2011 [facility] Respitory Rate 18 06/19/2011 [facility] Temperature Oral (F) 98.0 F 06/19/2011 [facility] Systolic (mm Hg) 110 06/19/2011 [facility] Diastolic (mm Hg) 70 06/19/2011 [facility] Temperature Oral (F) 98.6 F 06/19/2011 [facility] Respitory Rate 18 06/19/2011 [facility] Heart Rate 88 06/19/2011 [facility] Encounters Location Location Details Encounter Type Encounter Number Reason For Visit Attending Provider ADM Date DC Date Status Source [facility] [id number] DAIJA SAGE 06/19/2011 06/19/2011 Active [facility] [id number] PAT MICKEY 08/13/2011 08/13/2011 Active [facility] [id number] IMTIAZ SINGLETONBALL 12/02/2011 12/02/2011 Active [facility] [id number] JOSH REYEZEHAN 03/25/2012 03/25/2012 Active [facility] [id number] JOSH TIFFANIE 03/28/2012 03/29/2012 Active [facility] [id number] ASEM SOUYORK 04/11/2012 04/11/2012 Active [facility] [id number] JOSH BLACKBURN 06/23/2012 06/23/2012 Active [facility] [id number] ABDOMINAL PAIN NADIM CONFUCIANISM 07/02/2012 07/02/2012 Active [facility] [id number] ASEM SOUMAN 07/15/2012 07/15/2012 Active [facility] [id number] DIANA GRETCHEN 08/12/2012 08/12/[address] [facility] OBS Observation Patient [id number] Noel Francoisiq 12/02/2013 12/03/2013 [facility] [id number] Madeline Barrow 09/09/2014 09/09/2014 [facility] [id number] Kye Victoria 11/21/2014 11/21/2014 [facility] [id number] Diana Randle 01/13/2015 01/13/2015 [facility] [id number] Martinez Babcock 01/18/2015 01/18/2015 [facility] [id number] Diana Gonsalezusar 01/28/2015 01/28/2015 [facility] [id number] Nadim Christianity 03/29/2015 03/29/2015 [facility] [id number] Jose Reidshaileshchristopher 05/02/2015 05/02/2015 [facility] [id number] Nadim Christianity 05/09/2015 05/09/2015 [facility] [id number] Myah Pool 05/11/2015 05/11/2015 [facility] [id number] Chan Gunn 08/08/2015 08/08/2015 [facility] [id number] Nicolás Razakisha 08/09/2015 08/10/2015 [facility] Inpatient [id number] Kris Valentineukla 11/04/2015 11/06/2015 [facility] Inpatient [id number] Flavio Wynne 01/25/2016 01/27/2016 [facility] Emergency [id number] Kirby Yuan 02/01/2016 02/01/2016 [facility] Observation [id number] Flavio Wynne 02/11/2016 02/13/2016 [facility] Emergency [id number] Stefan Jose D 06/10/2016 06/11/2016 [facility] Emergency [id number] Martinez Babcock 06/12/2016 06/12/2016 [facility] Emergency [id number] Huan Singleton 10/14/2016 10/14/2016 [facility] Emergency [id number] Danyel Forte 10/22/2016 10/22/2016 [facility] Emergency [id number] Donald Ortega 11/08/2016 11/08/2016 [facility] Emergency [id number] Diana Ceja 11/20/2016 11/20/2016 [facility] Emergency [id number] Sindy Zhang 01/13/2017 01/13/2017 [facility] Emergency [id number] Martinez Babcock 03/11/2017 03/11/2017 [facility] Emergency [id number] Feliz Palomokwuma 03/24/2017 03/24/2017 [facility] Emergency [id number] Donald Ortega 04/03/2017 04/03/2017 [facility] Emergency [id number] Kirby Yuan 04/11/2017 04/11/2017 [facility] Emergency [id number] Chan Gunn 04/21/2017 04/21/2017 [facility] Emergency [id number] Feliz Clinewuma 06/10/2017 06/10/2017 [facility] Departed Emergency Room [id number] MARTA BARROW MD 07/03/2017 07/03/2017 [facility] Emergency [id number] Trav Pride 07/10/2017 07/10/2017 [facility] Departed Emergency Room [id number] MADELINE MCKEON MD 07/30/2017 07/30/2017 [facility] Departed Emergency Room [id number] MADELINE GILBERT MD 08/05/2017 08/05/2017 [facility] Discharged Inpatient [id number] NEELIMA TILLEY MD 08/20/2017 08/24/2017 [facility] Emergency [id number] Danyel Reanna 08/25/2017 08/25/2017 [facility] Departed Emergency Room [id number] COLLETTE MARTINEZ MD 09/09/2017 09/09/2017 [facility] Patient Detailed - [id number] Bogdan Hand MD 09/25/2017 [facility] Patient Detailed - [id number] Bogdan Hand MD 10/21/[address] [facility] Emergency [id number] Emani Corbin 10/26/2017 10/26/2017 [facility] Departed Emergency Room [id number] MADELINE GILBERT MD 10/26/2017 10/26/2017 [facility] Departed Emergency Room [id number] CANDE LOUIS MD 11/17/2017 11/17/[address] [facility] Est Patient Detailed - [id number] Bogdan Hand MD 11/20/2017 [facility] Emergency [id number] Harika Chiu Bessie 12/02/2017 12/02/2017 [facility] Departed Emergency Room [id number] MADELINE GILBERT MD 12/04/2017 12/04/[address] [facility] [place] [facility] Behavioral Health Est Patient Detailed - [id number] Bogdan Hand MD 12/13/2017 [facility] Behavioral Health Est Patient Detailed - [id number] Bogdan Hand MD 01/15/2018 [facility] Departed Emergency Room [id number] SEEMA PRIDE MD 01/21/2018 01/21/[address] [facility] Est Patient Detailed - [id number] Bogdan Hand MD 02/07/2018 [facility] Departed Emergency Room [id number] COLLETTE MARTINEZ MD 02/09/2018 02/09/2018 [facility] [id number] Martinez Babcock 02/14/2018 02/14/2018 [facility] Behavioral [facility] Est Patient Exp Problem - [id number] Bogdan Hand MD 02/17/2018 [facility] Emergency [id number] Olivia Álvarez 02/19/2018 02/19/2018 [facility] Emergency [id number] Danyel Forte 02/22/2018 02/22/2018 [facility] Emergency [id number] Madeline Barrow 03/01/2018 03/02/2018 [facility] Emergency [id number] Amy Butcher 03/03/2018 03/03/2018 [facility] Departed Emergency Room [id number] SEEMA PRIDE MD 03/04/2018 03/04/2018 [facility] Est Patient Exp Problem - [id number] Bogdan Hand MD 03/17/2018 [facility] Emergency [id number] Danyel Ivyggal 03/18/2018 03/18/2018 [facility] Emergency [id number] Dmitriy Benton 03/19/2018 03/19/2018 [facility] Emergency [id number] Danyel Reanna 03/21/2018 03/21/2018 [facility] Departed Emergency Room [id number] DANIAL ÁLVAREZ MD 03/28/2018 03/28/2018 [facility] Departed Emergency Room [id number] EROS SIDHU MD 03/31/2018 03/31/2018 [facility] Emergency [id number] Chacho Parishdarwin 04/05/2018 04/05/2018 [facility] Departed Emergency Room [id number] EROS SIDHU MD 04/09/2018 04/09/[address] [facility] Est Patient Detailed - [id number] Bogdan Hand MD 04/14/2018 [facility] Emergency [id number] Kirby Yuan 04/16/2018 04/16/2018 [facility] Departed Emergency Room [id number] SEEMA PRIDE MD 04/28/2018 04/28/2018 [facility] Behavior[facility] Health Est Patient Detailed - [id number] Bogdan Hand MD 05/05/2018 [facility] Departed Emergency Room [id number] EROS SIDHU MD 06/03/2018 06/03/[address] [facility] Behavioral [facility] Est Patient Exp Problem - [id number] Bogdan Hand MD 06/09/2018 [facility] Departed Emergency Room [id number] MADELINE GILBERT MD 06/15/2018 06/15/[address] [facility] Behavioral Health Est Patient Detailed - [id number] Bogdan Hand MD 07/07/2018 [facility] Behavioral Health Est Patient Detailed - [id number] Bogdan Hand MD 07/28/2018 [facility] Emergency [id number] Martinez Babcock 08/04/2018 08/04/2018 [facility] Departed Emergency Room [id number] COLLETTE MARTINEZ MD 08/05/2018 08/05/2018 [facility] Emergency [id number] Feliz Clineradhaminnie 08/06/2018 08/06/2018 [facility] Departed Emergency Room [id number] EROS SIDHU MD 08/08/2018 08/08/2018 [facility] Emergency [id number] Trav Pride 08/21/2018 08/21/2018 [facility] Emergency [id number] Danyel Reanna 08/26/2018 08/26/2018 [facility] Emergency [id number] Danyel Reanna 08/30/2018 08/30/2018 [facility] Emergency [id number] Danyel Reanna 09/09/2018 09/09/2018 [facility] Behavioral Health Est Patient Exp Problem - [id number] Bogdan Hand MD 09/22/2018 [facility] Emergency [id number] Sherice Barrow 09/29/2018 09/29/2018 [facility] Departed Emergency Room [id number] EROS SIDHU MD 10/01/2018 10/01/2018 [facility] Emergency [id number] Danyel Reanna 10/14/2018 10/14/2018 [facility] Emergency [id number] Danyel Reanna 10/27/2018 10/27/2018 [facility] Procedures Procedure Code Date Perfomer Comments Source CT of abdomen and pelvis without contrast [id number] 10/01/2018 [facility] Psychotherapy 45 (38-52*) min - 77722 (with patient and/or family member) [id number] 09/07/2018 Dom VILLEDA [facility] EMERGENCY DEPT VISIT [id number] 08/08/2018 [facility] CT of abdomen and pelvis without contrast [id number] 08/05/2018 JUAN [facility] CT of abdomen and pelvis without contrast [id number] 06/03/2018 SWEET [facility] Computed tomography of abdomen and pelvis with contrast [id number] 03/28/2018 HENRI [facility] Computed tomography of abdomen and pelvis with contrast [id number] 03/04/2018 [facility] Computed tomography of chest with contrast [id number] 03/04/2018 [facility] Psychotherapy 45 (38-52*) min - 33388 (with patient and/or family member) 53903 02/26/[facility] evaluation (no medical) - 30665 48923 02/10/2018 [facility] Computed tomography of abdomen and pelvis with contrast [id number] 01/21/2018 [facility] Computed tomography of lumbar spine with contrast [id number] 01/21/2018 [facility] Computed tomography of abdomen and pelvis with contrast [id number] 12/04/2017 [facility] Computed tomography of abdomen and pelvis with contrast [id number] [facility] of abdomen and pelvis with contrast [id number] 10/26/[address] [facility] Diagnostic evaluation with medical - 60027 62919 08/31/2017 [facility] Computed tomography of abdomen with contrast [id number] 08/23/2017 [facility] Computed tomography of abdomen and pelvis with contrast [id number] 08/20/2017 [facility] CT of abdomen and pelvis without contrast [id number] 08/05/[address] [facility] [address] of abdomen and pelvis without contrast [id number] [facility]/30/[facility] and [facility] without contrast [id number] 07/03/2017 BARROW [facility] Cholecystectomy [id number] [facility] [id number] [facility] Insertion of renal artery stent [id number] [facility] Lithotripsy [id number] [facility] Lithotripsy of kidney [id number] [facility] Tubal ligation 15785185 [facility] Cholecystectomy 62382859 [place] Hysterectomy [id number] [place] Insertion of renal artery stent [id number] [place] Lithotripsy 629408363 [place] Lithotripsy of kidney 642124871 [place] Tubal ligation 07721474 [place] Cholecystectomy 15497770 [facility] 911696665 [facility] Insertion of renal artery stent [id number] [facility] Lithotripsy 566637253 [facility] Lithotripsy of kidney 946941688 [facility] Tubal ligation 63020224 [facility] Cholecystectomy 65911404 [facility] Tubal ligation 831720748 [facility] Exploration of abdominal wall 8864862 [facility] Cholecystectomy 15167265 [facility] Exploration of abdominal wall 4381733 [facility] Hysterectomy 897296697 [facility] Insertion of renal artery stent [id number] [facility] Lithotripsy [id number] [facility] Lithotripsy of kidney 426277833 [facility] Tubal ligation [id number] [facility]
--- OUTSIDE RECORDS SUMMARY | 2018-11-10 00:06 | XMS REPORT | Summary of Care ---
Author Author [facility] Organization [facility] Address Unknown Phone Unavailable Encounter BELIA Johnson(FIN) [id number] Date(s): 08/21/18 - 08/21/18 [facility] [address] [place] [address]- [phone] Encounter Diagnosis Acute chest wall pain (Discharge Diagnosis) - 08/21/18 Muscle spasm (Discharge Diagnosis) - 08/21/18 Discharge Disposition: Home or Self Care Attending Physician: Trav Pride DO Vital Signs Most recent to 1 2 oldest [Reference Range]: Height 162.56 cm (08/21/18 8:10 AM) Temperature Oral 98.4 DegF [96.4-99.1 DegF] (08/21/18 8:10 AM) Blood Pressure 114/71 mmHg 116/79 mmHg [90-140/60-90 mmHg] (08/21/18 10:44 AM) (08/21/18 8:10 AM) Respiratory Rate 22 BRMIN 16 BRMIN [14-20 BRMIN] *HI* (08/21/18 8:10 AM) (08/21/18 10:44 AM) Peripheral Pulse 106 bpm Rate [60-100 bpm] *HI* (08/21/18 8:10 AM) Weight 100 kg (08/21/18 8:10 AM) Body Mass Index 37.84 m2 (08/21/18 8:10 AM) Problem List Condition Effective Dates Status Health Status Informant Kidney Active stone(Confirmed) Ovarian Resolved cyst(Confirmed) Vaginal bleeding Active problem(Confirmed) Vaginal Active delivery(Confirmed) Allergies, Adverse Reactions, Alerts Substance Reaction Severity Status codeine sulfate Active traMADol1 Active 1Puritis Medications cyclobenzaprine 10 mg, 1 tab, Route: PO, Drug form: TAB, ONCE, Dosing Weight 100, kg, Priority: STAT, Start date: 08/21/18 10:16:00 CDT, Stop date: 08/21/18 10:16:00 CDT Notes: (Same As: Flexeril) Start Date: 08/21/18 Stop Date: 08/21/18 Status: Completed ketOROLAC 30 mg, 1 mL, Route: IVP, Drug form: INJ, ONCE, Dosing Weight 100, kg, Priority: STAT, Start date: 08/21/18 10:16:00 CDT, Stop date: 08/21/18 10:16:00 CDT Notes: (Same as:Toradol) IV bolus must be given >15 seconds. Give IM administration slowly and deeply into the muscle.Not for use > 4 days MEDICATION WASTE Product Size: 30 mgProduct Wasted: ___ mg Start Date: 08/21/18 Stop Date: 08/21/18 Status: Completed methocarbamol 750 mg oral tablet 1,500 mg=2 tab, PO, TID, X 3 day, # 18 tab, 0 Refill(s) Start Date: 08/21/18 Stop Date: 08/24/18 Status: Ordered Results ELECTROLYTES Most recent to 1 oldest [Reference Range]: Sodium Lvl [135-145 137 mEq/L mEq/L] (08/21/18 8:31 AM) Potassium Lvl 3.9 mEq/L [3.5-5.1 mEq/L] (08/21/18 8:31 AM) Chloride Lvl [95-109 110 mEq/L mEq/L] *HI* (08/21/18 8:31 AM) CO2 [24-32 mEq/L] 24 mEq/L (08/21/18 8:31 AM) AGAP [10.0-20.0 6.9 mEq/L mEq/L] *LOW* (08/21/18 8:31 AM) CHEM PANEL Most recent to 1 oldest [Reference Range]: Creatinine Lvl 0.98 mg/dL [0.50-1.40 mg/dL] (08/21/18 8:31 AM) eGFR 72 mL/min/1.73m2 1 *NA* (08/21/18 8:31 AM) BUN [7-22 mg/dL] 12 mg/dL (08/21/18 8:31 AM) Glucose Lvl [70-99 99 mg/dL mg/dL] (08/21/18 8:31 AM) Calcium Lvl 8.6 mg/dL [8.5-10.5 mg/dL] (08/21/18 8:31 AM) 1Result Comment: The eGFR is calculated using [...] from the National Kidney Disease Education Program ( NKDEP) which additionally recommends that when the eGFR is used in patients with extremes of body mass index for purposes of drug dosing, the eGFR should be mul tiplied by the estimated BMI. CARDIAC ENZYMES Most recent to 1 oldest [Reference Range]: Total CK [12-191 41 unit/L unit/L] (08/21/18 8:31 AM) Troponin-I <0.02 ng/mL [0.00-0.40 ng/mL] (08/21/18 8:31 AM) HEMATOLOGY Most recent to 1 oldest [Reference Range]: WBC [3.7-10.4 K/CMM] 6.8 K/CMM (08/21/18 8:31 AM) RBC [4.20-5.40 4.50 M/CMM M/CMM] (08/21/18 8:31 AM) Hgb [12.0-16.0 g/dL] 13.4 g/dL (08/21/18 8:31 AM) Hct [36.0-48.0 %] 38.9 % (08/21/18 8:31 AM) MCV [80.0-98.0 fL] 86.5 fL (08/21/18 8:31 AM) MCH [27.0-31.0 pg] 29.7 pg (08/21/18 8:31 AM) MCHC [32.0-36.0 34.3 g/dL g/dL] (08/21/18 8:31 AM) RDW [11.5-14.5 %] 14.8 % *HI* (08/21/18 8:31 AM) MPV [7.4-10.4 fL] 7.4 fL (08/21/18 8:31 AM) Platelet [133-450 269 K/CMM K/CMM] (08/21/18 8:31 AM) Segs [45.0-75.0 %] 68.4 % (08/21/18 8:31 AM) Lymphocytes 21.4 % [20.0-40.0 %] (08/21/18 8:31 AM) Monocytes [2.0-12.0 7.0 % %] (08/21/18 8:31 AM) Eosinophils [0.0-4.0 1.9 % %] (08/21/18 8:31 AM) Basophils [0.0-1.0 1.3 % %] *HI* (08/21/18 8:31 AM) Neutrophils # 4.7 K/CMM [1.5-8.1 K/CMM] (08/21/18 8:31 AM) Lymphocytes # 1.5 K/CMM [1.0-5.5 K/CMM] (08/21/18 8:31 AM) Monocytes # [0.0-0.8 0.5 K/CMM K/CMM] (08/21/18 8:31 AM) Eosinophils # 0.1 K/CMM [0.0-0.5 K/CMM] (08/21/18 8:31 AM) Basophils # [0.0-0.2 0.1 K/CMM K/CMM] (08/21/18 8:31 AM) Immunizations No data available for this section Procedures Procedure Date Related Diagnosis Body Site Status Cholecystectomy Completed Cholecystectomy Completed Cholecystectomy Completed Exploration of abdominal wall Completed Hysterectomy Completed Hysterectomy Completed Insertion of renal artery stent Completed Lithotripsy Completed Lithotripsy of kidney Completed Tubal ligation Completed Social History Social History Type Response Substance Abuse Use: None. Alcohol Current, Type Beer. Frequency: 1-2 times per month. Smoking Status Former smoker; Previous treatment: None; Ready to change: No; Concerns about tobacco use in household: No; Exposure to Tobacco Smoke None; Cigarette Smoking Last 365 Days No; Reg Smoking Cessation Counseling No entered on: 08/21/18 Assessment and Plan No data available for this section
--- OUTSIDE RECORDS SUMMARY | 2018-11-10 00:06 | XMS REPORT | Summary of Care ---
Author Author [facility] Organization [facility] Address Unknown Phone Unavailable Encounter BELIA Johnson(YANY) [id number] Date(s): 11/08/16 - 11/08/16 [facility] [address] [place] [address]- [phone] Discharge Diagnosis: Urinary tract infection, site not specified Discharge Diagnosis: Generalized abdominal pain Discharge Disposition: Home or Self Care Attending Physician: Donald Ortega MD Vital Signs Most recent to 1 2 oldest [Reference Range]: Height 162.56 cm (11/08/16 8:36 AM) Temperature Oral 98.4 DegF 98.4 DegF [96.4-99.1 DegF] (11/08/16 11:46 AM) (11/08/16 8:36 AM) Blood Pressure 128/74 mmHg 130/83 mmHg [90-140/60-90 mmHg] (11/08/16 11:46 AM) (11/08/16 8:36 AM) Respiratory Rate 18 BRMIN 18 BRMIN [14-20 BRMIN] (11/08/16 11:46 AM) (11/08/16 8:36 AM) Peripheral Pulse 72 bpm 103 bpm Rate [60-100 bpm] (11/08/16 11:46 AM) *HI* (11/08/16 8:36 AM) Weight 81.818 kg (11/08/16 8:36 AM) Body Mass Index 30.96 m2 (11/08/16 8:36 AM) Problem List Condition Effective Dates Status Health Status Informant Kidney Active stone(Confirmed) Ovarian Resolved cyst(Confirmed) Vaginal bleeding Active problem(Confirmed) Vaginal Active delivery(Confirmed) Allergies, Adverse Reactions, Alerts Substance Reaction Severity Status NKDA NKDA - No known drug allergies Active Medications Keflex 500 mg oral capsule 500 mg=1 cap, PO, QID, X 10 day, # 40 cap, 0 Refill(s) Start Date: 11/08/16 Stop Date: 11/18/16 Status: Ordered morphine Sulfate 4 mg, Route: IVP, ONCE, Dosing Weight 81.818, kg, Start date: 11/08/16 10:47:00 CDT, Stop date: 11/08/16 10:47:00 CDT Start Date: 11/08/16 Stop Date: 11/08/16 Status: Completed morphine Sulfate 4 mg, Route: IVP, ONCE, Dosing Weight 81.818, kg, Start date: 11/08/16 8:56:00 C DT, Stop date: 11/08/16 8:56:00 CDT Start Date: 11/08/16 Stop Date: 11/08/16 Status: Completed Rocephin 1 gm, Route: IVPB, Drug form: PDR/INJ, ONCE, Dosing Weight 81.818, kg, Priority: STAT, Start date: 11/08/16 10:54:00 CDT, Stop date: 11/08/16 10:54:00 CDT, ABX Indication: Genital Tract Infection Start Date: 11/08/16 Stop Date: 11/08/16 Status: Completed Saline Flush 0.9% 10 mL, Route: IVP, Drug Form: INJ, Dosing Weight 81.818, kg, PRN, PRN Line Flush , Start date: 11/08/16 8:56:00 CDT, Duration: 30 day, Stop date: 12/08/16 8:55:0 0 CDT Start Date: 11/08/16 Stop Date: 11/08/16 Status: Discontinued Sodium Chloride 0.9% (Bolus) IV 1,000 mL, 1,000 ml/hr, Infuse Over: 1 hr, Route: IV, ONCE, Priority: STAT, Dosin g Weight 81.818 kg, Start date: 11/08/16 8:56:00 CDT, Duration: 1 doses or times , Stop date: 11/08/16 8:56:00 CDT Start Date: 11/08/16 Stop Date: 11/08/16 Status: Completed Zofran 4 mg, Route: IVP, ONCE, Dosing Weight 81.818, kg, Start date: 11/08/16 8:56:00 C DT, Stop date: 11/08/16 8:56:00 CDT Start Date: 11/08/16 Stop Date: 11/08/16 Status: Completed Results ELECTROLYTES Most recent to 1 oldest [Reference Range]: Sodium Lvl [135-145 138 mEq/L mEq/L] (11/08/16 8:58 AM) Potassium Lvl 4.0 mEq/L [3.5-5.1 mEq/L] (11/08/16 8:58 AM) Chloride Lvl [95-109 106 mEq/L mEq/L] (11/08/16 8:58 AM) CO2 [24-32 mEq/L] 25 mEq/L (11/08/16 8:58 AM) AGAP [10.0-20.0 11.0 mEq/L mEq/L] (11/08/16 8:58 AM) CHEM PANEL Most recent to 1 oldest [Reference Range]: Creatinine Lvl 0.96 mg/dL [0.50-1.40 mg/dL] (11/08/16 8:58 AM) eGFR 75 mL/min/1.73m2 1 *NA* (11/08/16 8:58 AM) BUN [7-22 mg/dL] 16 mg/dL (11/08/16 8:58 AM) B/C Ratio [6-25] 17 (11/08/16 8:58 AM) Glucose Lvl [70-99 160 mg/dL mg/dL] *HI* (11/08/16 8:58 AM) Total Protein 6.9 g/dL [6.4-8.4 g/dL] (11/08/16 8:58 AM) Albumin Lvl [3.5-5.0 3.4 g/dL g/dL] *LOW* (11/08/16 8:58 AM) Globulin [2.7-4.2 3.5 g/dL g/dL] (11/08/16 8:58 AM) A/G Ratio [0.7-1.6] 1.0 (11/08/16 8:58 AM) Calcium Lvl 8.4 mg/dL [8.5-10.5 mg/dL] *LOW* (11/08/16 8:58 AM) ALT [0-65 unit/L] 18 unit/L (11/08/16 8:58 AM) AST [0-37 unit/L] 10 unit/L (11/08/16 8:58 AM) Alk Phos [39-136 92 unit/L unit/L] (11/08/16 8:58 AM) Bili Total [0.2-1.3 0.4 mg/dL mg/dL] (11/08/16 8:58 AM) Lipase Lvl [73-393 168 unit/L unit/L] (11/08/16 8:58 AM) 1Result Comment: The eGFR is calculated [...] be mul tiplied by the estimated BMI. URINE AND STOOL Most recent to 1 oldest [Reference Range]: UA Turbidity [Clear] Slight *ABN* (11/08/16 8:58 AM) UA Color [Yellow] Yellow *NA* (11/08/16 8:58 AM) UA pH [5.0-8.0] 6.0 (11/08/16 8:58 AM) UA Spec Grav 1.017 [<=1.030] (11/08/16 8:58 AM) UA Glucose [Negative Negative mg/dL mg/dL] *NA* (11/08/16 8:58 AM) UA Blood [Negative] Negative (11/08/16 8:58 AM) UA Ketones [Negative Negative mg/dL mg/dL] *NA* (11/08/16 8:58 AM) UA Protein [Negative Negative mg/dL mg/dL] (11/08/16 8:58 AM) UA Urobilinogen <=1.0 mg/dL [0.1-1.0 mg/dL] *NA* (11/08/16 8:58 AM) UA Bili [Negative] Negative *NA* (11/08/16 8:58 AM) UA Leuk Est Trace [Negative] *ABN* (11/08/16 8:58 AM) UA Nitrite Positive [Negative] *ABN* (11/08/16 8:58 AM) UA WBC [0-5 /HPF] 2 /HPF (11/08/16 8:58 AM) UA Bacteria [None Moderate /HPF Seen /HPF] *ABN* (11/08/16 8:58 AM) UA Sq Epi [Few /LPF] Many /LPF *ABN* (11/08/16 8:58 AM) UA Mucus [None Seen Few /LPF /LPF] *NA* (11/08/16 8:58 AM) UA Trans Epi [<=0 1 /LPF /LPF] *HI* (11/08/16 8:58 AM) HEMATOLOGY Most recent to 1 oldest [Reference Range]: WBC [3.7-10.4 K/CMM] 5.3 K/CMM (11/08/16 8:58 AM) RBC [4.20-5.40 4.57 M/CMM M/CMM] (11/08/16 8:58 AM) Hgb [12.0-16.0 g/dL] 13.2 g/dL (11/08/16 8:58 AM) Hct [36.0-48.0 %] 39.3 % (11/08/16 8:58 AM) MCV [80.0-98.0 fL] 86.0 fL (11/08/16 8:58 AM) MCH [27.0-31.0 pg] 28.8 pg (11/08/16 8:58 AM) MCHC [32.0-36.0 33.5 g/dL g/dL] (11/08/16 8:58 AM) RDW [11.5-14.5 %] 14.5 % (11/08/16 8:58 AM) Platelet [133-450 208 K/CMM K/CMM] (11/08/16 8:58 AM) MPV [7.4-10.4 fL] 7.7 fL (11/08/16 8:58 AM) Segs [45.0-75.0 %] 68.7 % (11/08/16 8:58 AM) Lymphocytes 21.8 % [20.0-40.0 %] (11/08/16 8:58 AM) Monocytes [2.0-12.0 5.5 % %] (11/08/16 8:58 AM) Eosinophils [0.0-4.0 3.3 % %] (11/08/16 8:58 AM) Basophils [0.0-1.0 0.7 % %] (11/08/16 8:58 AM) Segs-Bands # 3.6 K/CMM [1.5-8.1 K/CMM] (11/08/16 8:58 AM) Lymphocytes # 1.2 K/CMM [1.0-5.5 K/CMM] (11/08/16 8:58 AM) Monocytes # [0.0-0.8 0.3 K/CMM K/CMM] (11/08/16 8:58 AM) Eosinophils # 0.2 K/CMM [0.0-0.5 K/CMM] (11/08/16 8:58 AM) Immunizations No data available for this section Procedures Procedure Date Related Diagnosis Body Site Cholecystectomy Cholecystectomy Cholecystectomy Hysterectomy Hysterectomy Insertion of renal artery stent Lithotripsy Lithotripsy of kidney Tubal ligation Social History Social History Type Response Substance Abuse Use: None. Alcohol Past, Type Beer. Smoking Status Former smoker; Previous treatment: None; Exposure to Tobacco Smoke None; Cigarette Smoking Last 365 Days No; Reg Smoking Cessation Counseling No Assessment and Plan No data available for this section
--- OUTSIDE RECORDS SUMMARY | 2018-11-10 00:06 | XMS REPORT | Summary of Care ---
Author Author [facility] Organization [facility] Address Unknown Phone Unavailable Encounter BELIA Johnson(YANY) [id number] Date(s): 10/22/16 - 10/22/16 [facility] [address] [place] [address]- Discharge Diagnosis: Acute bilateral back pain Discharge Diagnosis: Back pain, chronic Discharge Disposition: Home or Self Care Attending Physician: Danyel Forte MD Vital Signs Most recent to 1 2 oldest [Reference Range]: Height 165.1 cm (10/22/16 8:45 AM) Temperature Oral 97.6 DegF 98.4 DegF [96.4-99.1 DegF] (10/22/16 10:32 AM) (10/22/16 8:45 AM) Blood Pressure 116/73 mmHg 127/74 mmHg [90-140/60-90 mmHg] (10/22/16 10:32 AM) (10/22/16 8:45 AM) Respiratory Rate 17 BRMIN 20 BRMIN [14-20 BRMIN] (10/22/16 10:32 AM) (10/22/16 8:45 AM) Peripheral Pulse 65 bpm 77 bpm Rate [60-100 bpm] (10/22/16 10:32 AM) (10/22/16 8:45 AM) Weight 68.182 kg (10/22/16 8:45 AM) Body Mass Index 25.01 m2 (10/22/16 8:45 AM) Problem List Condition Effective Dates Status Health Status Informant Kidney Active stone(Confirmed) Ovarian Resolved cyst(Confirmed) Vaginal bleeding Active problem(Confirmed) Vaginal Active delivery(Confirmed) Allergies, Adverse Reactions, Alerts Substance Reaction Severity Status NKDA NKDA - No known drug allergies Active Medications ketOROLAC 30 mg, Route: IVP, Drug form: INJ, ONCE, Dosing Weight 81.818, kg, Priority: STA T, Start date: 10/22/16 8:43:00 CDT, Stop date: 10/22/16 8:43:00 CDT Start Date: 10/22/16 Stop Date: 10/22/16 Status: Completed NS (Bolus) IV 1,000 mL, 1,000 ml/hr, Infuse Over: 1 hr, Route: IV, ONCE, Priority: STAT, Dosin g Weight 81.818 kg, Start date: 10/22/16 8:43:00 CDT, Duration: 1 doses or times , Stop date: 10/22/16 8:43:00 CDT Start Date: 10/22/16 Stop Date: 10/22/16 Status: Completed Zofran 4 mg, Route: IVP, Drug form: INJ, ONCE, Dosing Weight 81.818, kg, Priority: STAT , Start date: 10/22/16 8:43:00 CDT, Stop date: 10/22/16 8:43:00 CDT Start Date: 10/22/16 Stop Date: 10/22/16 Status: Completed Results ELECTROLYTES Most recent to 1 oldest [Reference Range]: Sodium Lvl [135-145 139 mEq/L mEq/L] (10/22/16 8:53 AM) Potassium Lvl 4.1 mEq/L [3.5-5.1 mEq/L] (10/22/16 8:53 AM) Chloride Lvl [95-109 105 mEq/L mEq/L] (10/22/16 8:53 AM) CO2 [24-32 mEq/L] 25 mEq/L (10/22/16 8:53 AM) AGAP [10.0-20.0 13.1 mEq/L mEq/L] (10/22/16 8:53 AM) CHEM PANEL Most recent to 1 oldest [Reference Range]: Creatinine Lvl 0.83 mg/dL [0.50-1.40 mg/dL] (10/22/16 8:53 AM) eGFR 90 mL/min/1.73m2 1 *NA* (10/22/16 8:53 AM) BUN [7-22 mg/dL] 16 mg/dL (10/22/16 8:53 AM) B/C Ratio [6-25] 19 (10/22/16 8:53 AM) Glucose Lvl [70-99 91 mg/dL mg/dL] (10/22/16 8:53 AM) Total Protein 7.6 g/dL [6.4-8.4 g/dL] (10/22/16 8:53 AM) Albumin Lvl [3.5-5.0 3.9 g/dL g/dL] (10/22/16 8:53 AM) Globulin [2.7-4.2 3.7 g/dL g/dL] (10/22/16 8:53 AM) A/G Ratio [0.7-1.6] 1.1 (10/22/16 8:53 AM) Calcium Lvl 8.7 mg/dL [8.5-10.5 mg/dL] (10/22/16 8:53 AM) ALT [0-65 unit/L] 23 unit/L (10/22/16 8:53 AM) AST [0-37 unit/L] 11 unit/L (10/22/16 8:53 AM) Alk Phos [39-136 99 unit/L unit/L] (10/22/16 8:53 AM) Bili Total [0.2-1.3 0.7 mg/dL mg/dL] (10/22/16 8:53 AM) Lipase Lvl [73-393 223 unit/L unit/L] (10/22/16 8:53 AM) 1Result Comment: The eGFR is calculated [...] mul tiplied by the estimated BMI. URINE CHEM Most recent to 1 oldest [Reference Range]: U Preg [Negative] Negative (10/22/16 8:53 AM) URINE AND STOOL Most recent to 1 oldest [Reference Range]: UA Turbidity [Clear] Clear (10/22/16 8:53 AM) UA Color [Yellow] Yellow *NA* (10/22/16 8:53 AM) UA pH [5.0-8.0] 6.0 (10/22/16 8:53 AM) UA Spec Grav 1.017 [<=1.030] (10/22/16 8:53 AM) UA Glucose [Negative Negative mg/dL mg/dL] *NA* (10/22/16 8:53 AM) UA Blood [Negative] Negative (10/22/16 8:53 AM) UA Ketones [Negative Negative mg/dL mg/dL] *NA* (10/22/16 8:53 AM) UA Protein [Negative Negative mg/dL mg/dL] (10/22/16 8:53 AM) UA Urobilinogen <=1.0 mg/dL [0.1-1.0 mg/dL] *NA* (10/22/16 8:53 AM) UA Bili [Negative] Negative *NA* (10/22/16 8:53 AM) UA Leuk Est Negative [Negative] (10/22/16 8:53 AM) UA Nitrite Positive [Negative] *ABN* (10/22/16 8:53 AM) UA WBC [0-5 /HPF] 2 /HPF (10/22/16 8:53 AM) UA RBC [0-2 /HPF] 2 /HPF (10/22/16 8:53 AM) UA Bacteria [None Occasional /HPF Seen /HPF] *NA* (10/22/16 8:53 AM) UA Sq Epi [Few /LPF] Occasional /LPF *NA* (10/22/16 8:53 AM) UA Mucus [None Seen Few /LPF /LPF] *NA* (10/22/16 8:53 AM) HEMATOLOGY Most recent to 1 oldest [Reference Range]: WBC [3.7-10.4 K/CMM] 5.8 K/CMM (10/22/16 8:53 AM) RBC [4.20-5.40 4.56 M/CMM M/CMM] (10/22/16 8:53 AM) Hgb [12.0-16.0 g/dL] 13.5 g/dL (10/22/16 8:53 AM) Hct [36.0-48.0 %] 38.9 % (10/22/16 8:53 AM) MCV [80.0-98.0 fL] 85.3 fL (10/22/16 8:53 AM) MCH [27.0-31.0 pg] 29.5 pg (10/22/16 8:53 AM) MCHC [32.0-36.0 34.5 g/dL g/dL] (10/22/16 8:53 AM) RDW [11.5-14.5 %] 14.4 % (10/22/16 8:53 AM) Platelet [133-450 238 K/CMM K/CMM] (10/22/16 8:53 AM) MPV [7.4-10.4 fL] 7.9 fL (10/22/16 8:53 AM) Segs [45.0-75.0 %] 64.2 % (10/22/16 8:53 AM) Lymphocytes 25.7 % [20.0-40.0 %] (10/22/16 8:53 AM) Monocytes [2.0-12.0 6.4 % %] (10/22/16 8:53 AM) Eosinophils [0.0-4.0 2.8 % %] (10/22/16 8:53 AM) Basophils [0.0-1.0 0.9 % %] (10/22/16 8:53 AM) Segs-Bands # 3.7 K/CMM [1.5-8.1 K/CMM] (10/22/16 8:53 AM) Lymphocytes # 1.5 K/CMM [1.0-5.5 K/CMM] (10/22/16 8:53 AM) Monocytes # [0.0-0.8 0.4 K/CMM K/CMM] (10/22/16 8:53 AM) Eosinophils # 0.2 K/CMM [0.0-0.5 K/CMM] (10/22/16 8:53 AM) Basophils # [0.0-0.2 0.1 K/CMM K/CMM] (10/22/16 8:53 AM) Immunizations No data available for this [...]
--- OUTSIDE RECORDS SUMMARY | 2018-11-10 00:06 | XMS REPORT | Summary of Care ---
Author Author [facility] Organization [facility] Address Unknown Phone Unavailable Encounter BELIA Johnson(YANY) [id number] Date(s): 03/24/17 - 03/24/17 [facility] [address] [place] [address]- Discharge Diagnosis: Acute low back pain Discharge Diagnosis: Abdominal pain, acute Discharge Disposition: Home or Self Care Attending Physician: Feliz De La Cruz DO Vital Signs Most recent to 1 2 oldest [Reference Range]: Height 162.56 cm (03/24/17 9:27 AM) Temperature Oral 98.1 DegF 98.2 DegF [96.4-99.1 DegF] (03/24/17 11:16 AM) (03/24/17 9:27 AM) Blood Pressure 109/79 mmHg 135/89 mmHg [90-140/60-90 mmHg] (03/24/17 11:16 AM) (03/24/17 9:27 AM) Respiratory Rate 16 BRMIN 17 BRMIN [14-20 BRMIN] (03/24/17 11:16 AM) (03/24/17 9:27 AM) Peripheral Pulse 73 bpm 91 bpm Rate [60-100 bpm] (03/24/17 11:16 AM) (03/24/17 9:27 AM) Weight 90.909 kg (03/24/17 9:27 AM) Body Mass Index 34.4 m2 (03/24/17 9:27 AM) Problem List Condition Effective Dates Status Health Status Informant Kidney Active stone(Confirmed) Ovarian Resolved cyst(Confirmed) Vaginal bleeding Active problem(Confirmed) Vaginal Active delivery(Confirmed) Allergies, Adverse Reactions, Alerts Substance Reaction Severity Status acetaminophen-codeine1 Mild Active NKDA NKDA - No known drug allergies Active traMADol2 Active 1Puritis 2Puritis Medications acetaminophen-hydrocodone 325 mg-5 mg oral tablet 1 tab, Route: PO, Drug Form: TAB, Dosing Weight 90.909, kg, ONCE, STAT, Start da te: 03/24/17 9:44:00 CDT, Stop date: 03/24/17 9:44:00 CDT Notes: (Same as: [place] 325/5) Do not exceed 4gm/day of acetaminophen. Start Date: 03/24/17 Stop Date: 03/24/17 Status: Completed Motrin 800 mg oral tablet 800 mg=1 tab, PO, TID, # 30 tab, 0 Refill(s) Start Date: 03/24/17 Stop Date: 04/11/17 Status: Ordered Results ELECTROLYTES Most recent to 1 oldest [Reference Range]: Sodium Lvl [135-145 139 mEq/L mEq/L] (03/24/17 9:51 AM) Potassium Lvl 3.6 mEq/L [3.5-5.1 mEq/L] (03/24/17 9:51 AM) Chloride Lvl [95-109 106 mEq/L mEq/L] (03/24/17 9:51 AM) CO2 [24-32 mEq/L] 23 mEq/L *LOW* (03/24/17 9:51 AM) AGAP [10.0-20.0 13.6 mEq/L mEq/L] (03/24/17 9:51 AM) CHEM PANEL Most recent to 1 oldest [Reference Range]: Creatinine Lvl 1.10 mg/dL [0.50-1.40 mg/dL] (03/24/17 9:51 AM) eGFR 63 mL/min/1.73m2 1 *NA* (03/24/17 9:51 AM) BUN [7-22 mg/dL] 15 mg/dL (03/24/17 9:51 AM) B/C Ratio [6-25] 14 (03/24/17 9:51 AM) Glucose Lvl [70-99 86 mg/dL mg/dL] (03/24/17 9:51 AM) Total Protein 7.6 g/dL [6.4-8.4 g/dL] (03/24/17 9:51 AM) Albumin Lvl [3.5-5.0 3.8 g/dL g/dL] (03/24/17 9:51 AM) Globulin [2.7-4.2 3.8 g/dL g/dL] (03/24/17 9:51 AM) A/G Ratio [0.7-1.6] 1.0 (03/24/17 9:51 AM) Calcium Lvl 9.2 mg/dL [8.5-10.5 mg/dL] (03/24/17 9:51 AM) ALT [0-65 unit/L] 29 unit/L (03/24/17 9:51 AM) AST [0-37 unit/L] 14 unit/L (03/24/17 9:51 AM) Alk Phos [39-136 121 unit/L unit/L] (03/24/17 9:51 AM) Bili Total [0.2-1.3 0.5 mg/dL mg/dL] (03/24/17 9:51 AM) Lipase Lvl [73-393 157 unit/L unit/L] (03/24/17 9:51 AM) 1Result Comment: The eGFR is calculated [...] be mul tiplied by the estimated BMI. ENDOCRINOLOGY Most recent to 1 oldest [Reference Range]: hCG Tot <1 mIU/mL *NA* (03/24/17 9:51 AM) URINE AND STOOL Most recent to 1 oldest [Reference Range]: UA Turbidity [Clear] Clear (03/24/17 9:51 AM) UA Color Ltyellow *NA* (03/24/17 9:51 AM) UA pH [5.0-8.0] 5.0 (03/24/17 9:51 AM) UA Spec Grav 1.013 [<=1.030] (03/24/17 9:51 AM) UA Glucose [Negative Negative mg/dL mg/dL] *NA* (03/24/17 9:51 AM) UA Blood [Negative] Negative (03/24/17 9:51 AM) UA Ketones [Negative Negative mg/dL mg/dL] *NA* (03/24/17 9:51 AM) UA Protein [Negative Negative mg/dL mg/dL] (03/24/17 9:51 AM) UA Urobilinogen <=1.0 mg/dL [0.1-1.0 mg/dL] *NA* (03/24/17 9:51 AM) UA Bili [Negative] Negative *NA* (03/24/17 9:51 AM) UA Leuk Est Negative [Negative] (03/24/17 9:51 AM) UA Nitrite Negative [Negative] (03/24/17 9:51 AM) UA WBC [0-5 /HPF] 1 /HPF (03/24/17 9:51 AM) UA RBC [0-2 /HPF] 1 /HPF (03/24/17 9:51 AM) UA Bacteria [None Occasional /HPF Seen /HPF] *NA* (03/24/17 9:51 AM) UA Sq Epi [Few /LPF] Occasional /LPF *NA* (03/24/17 9:51 AM) UA Hyal Cast [0-2 3 /LPF /LPF] *HI* (03/24/17 9:51 AM) UA Mucus [None Seen Few /LPF /LPF] *NA* (03/24/17 9:51 AM) HEMATOLOGY Most recent to 1 oldest [Reference Range]: WBC [3.7-10.4 K/CMM] 5.7 K/CMM (03/24/17 9:51 AM) RBC [4.20-5.40 4.61 M/CMM M/CMM] (03/24/17 9:51 AM) Hgb [12.0-16.0 g/dL] 14.1 g/dL (03/24/17 9:51 AM) Hct [36.0-48.0 %] 39.4 % (03/24/17 9:51 AM) MCV [80.0-98.0 fL] 85.5 fL (03/24/17 9:51 AM) MCH [27.0-31.0 pg] 30.7 pg (03/24/17 9:51 AM) MCHC [32.0-36.0 35.9 g/dL g/dL] (03/24/17 9:51 AM) RDW [11.5-14.5 %] 14.5 % (03/24/17 9:51 AM) Platelet [133-450 287 K/CMM K/CMM] (03/24/17 9:51 AM) MPV [7.4-10.4 fL] 7.3 fL *LOW* (03/24/17 9:51 AM) Segs [45.0-75.0 %] 61.2 % (03/24/17 9:51 AM) Lymphocytes 27.7 % [20.0-40.0 %] (03/24/17 9:51 AM) Monocytes [2.0-12.0 6.8 % %] (03/24/17 9:51 AM) Eosinophils [0.0-4.0 3.3 % %] (03/24/17 9:51 AM) Basophils [0.0-1.0 1.0 % %] (03/24/17 9:51 AM) Segs-Bands # 3.5 K/CMM [1.5-8.1 K/CMM] (03/24/17 9:51 AM) Lymphocytes # 1.6 K/CMM [1.0-5.5 K/CMM] (03/24/17 9:51 AM) Monocytes # [0.0-0.8 0.4 K/CMM K/CMM] (03/24/17 9:51 AM) Eosinophils # 0.2 K/CMM [0.0-0.5 K/CMM] (03/24/17 9:51 AM) Basophils # [0.0-0.2 0.1 K/CMM K/CMM] (03/24/17 9:51 AM) Immunizations No data available for this [...]
--- OUTSIDE RECORDS SUMMARY | 2018-11-10 00:06 | XMS REPORT | Summary of Care ---
Author Author [facility] Organization [facility] Address Unknown Phone Unavailable Encounter BELIA Johnson(YANY) [id number] Date(s): 10/14/16 - 10/14/16 [facility] [address] [place] [address]- Discharge Diagnosis: Flank pain Discharge Diagnosis: UTI (urinary tract infection) Discharge Disposition: Home or Self Care Attending Physician: Huan Singleton MD Vital Signs Most recent to 1 2 oldest [Reference Range]: Height 162.56 cm (10/14/16 7:37 AM) Temperature Oral 98 DegF 97.8 DegF [96.4-99.1 DegF] (10/14/16 11:06 AM) (10/14/16 7:37 AM) Blood Pressure 130/82 mmHg 128/84 mmHg [90-140/60-90 mmHg] (10/14/16 11:06 AM) (10/14/16 7:37 AM) Respiratory Rate 18 BRMIN 18 BRMIN [14-20 BRMIN] (10/14/16 11:06 AM) (10/14/16 7:37 AM) Peripheral Pulse 83 bpm 82 bpm Rate [60-100 bpm] (10/14/16 11:06 AM) (10/14/16 7:37 AM) Weight 81.818 kg (10/14/16 7:37 AM) Body Mass Index 30.96 m2 (10/14/16 7:37 AM) Problem List Condition Effective Dates Status Health Status Informant Kidney Active stone(Confirmed) Ovarian Resolved cyst(Confirmed) Vaginal bleeding Active problem(Confirmed) Vaginal Active delivery(Confirmed) Allergies, Adverse Reactions, Alerts Substance Reaction Severity Status NKDA NKDA - No known drug allergies Active Medications Cipro 500 mg oral tablet 500 mg=1 tab, PO, Q12H, X 7 day, # 14 tab, 0 Refill(s) Start Date: 10/14/16 Stop Date: 10/21/16 Status: Ordered morphine Sulfate 4 mg, Route: IVP, ONCE, Dosing Weight 81.818, kg, Priority: STAT, Start date: 9:09:00 CDT, Stop date: 10/14/16 9:09:00 CDT Start Date: 10/14/16 Stop Date: 10/14/16 Status: Completed morphine Sulfate 4 mg, Route: IVP, ONCE, Dosing Weight 81.818, kg, Priority: STAT, Start date: 8:20:00 CDT, Stop date: 10/14/16 8:20:00 CDT Start Date: 10/14/16 Stop Date: 10/14/16 Status: Completed NS (Bolus) IV 1,000 mL, 1,000 ml/hr, Infuse Over: 1 hr, Route: IV, 1,000, Drug form: INJ, ONCE , Priority: STAT, Dosing Weight 81.818 kg, Start date: 10/14/16 7:44:00 CDT, Dur ation: 1 doses or times, Stop date: 10/14/16 7:44:00 CDT Start Date: 10/14/16 Stop Date: 10/14/16 Status: Completed Ultram 50 mg oral tablet 100 mg=2 tab, PO, Q6H, PRN pain, X 3 day, # 24 tab, 0 Refill(s) Start Date: 10/14/16 Stop Date: 10/17/16 Status: Ordered Zofran 4 mg, 2 mL, Route: IVP, Drug form: INJ, ONCE, Dosing Weight 81.818, kg, Priority : STAT, Start date: 10/14/16 7:44:00 CDT, Stop date: 10/14/16 7:44:00 CDT Notes: (Same as: Zofran) MEDICATION WASTE Product Size: 4 mgProduct Was luisito: ___ mg Start Date: 10/14/16 Stop Date: 10/14/16 Status: Completed Zofran ODT 4 mg oral tablet, disintegrating 4 mg=1 tab, PO, BID, PRN Nausea and Vomiting, Dissolve tab under tongue, X 3 day , # 6 tab, 0 Refill(s) Start Date: 10/14/16 Stop Date: 10/17/16 Status: Ordered Results ELECTROLYTES Most recent to 1 oldest [Reference Range]: Sodium Lvl [135-145 139 mEq/L mEq/L] (10/14/16 8:19 AM) Potassium Lvl 3.7 mEq/L [3.5-5.1 mEq/L] (10/14/16 8:19 AM) Chloride Lvl [95-109 108 mEq/L mEq/L] (10/14/16 8: AM) CO2 [24-32 mEq/L] 25 mEq/L (10/14/16 8:19 AM) AGAP [10.0-20.0 9.7 mEq/L mEq/L] *LOW* (10/14/16: AM) CHEM PANEL Most recent to 1 oldest [Reference Range]: Creatinine Lvl 0.81 mg/dL [0.50-1.40 mg/dL] (10/14/16 8:19 AM) eGFR 92 mL/min/1.73m2 1 *NA* (10/14/16 8:19 AM) BUN [7-22 mg/dL] 12 mg/dL (10/14/16 8:19 AM) B/C Ratio [6-25] 15 (10/14/16 8:19 AM) Glucose Lvl [70-99 104 mg/dL mg/dL] *HI* (10/14/16 8:19 AM) Total Protein 6.6 g/dL [6.4-8.4 g/dL] (10/14/16 8:19 AM) Albumin Lvl [3.5-5.0 3.4 g/dL g/dL] *LOW* (10/14/16 8:19 AM) Globulin [2.7-4.2 3.2 g/dL g/dL] (10/14/16 8:19 AM) A/G Ratio [0.7-1.6] 1.1 (10/14/16 8:19 AM) Calcium Lvl 8.4 mg/dL [8.5-10.5 mg/dL] *LOW* (10/14/16 8:19 AM) ALT [0-65 unit/L] 29 unit/L (10/14/16 8:19 AM) AST [0-37 unit/L] 13 unit/L (10/14/16 8:19 AM) Alk Phos [39-136 82 unit/L unit/L] (10/14/16 8:19 AM) Bili Total [0.2-1.3 0.3 mg/dL mg/dL] (10/14/16 8:19 AM) Amylase Lvl [25-115 94 unit/L unit/L] (10/14/16 8:19 AM) Lipase Lvl [73-393 155 unit/L unit/L] (10/14/16 8:19 AM) 1Result Comment: The eGFR is calculated [...] Most recent to 1 oldest [Reference Range]: S Preg [Negative] Negative *NA* (10/14/16 8:19 AM) URINE CHEM Most recent to 1 oldest [Reference Range]: U Preg [Negative] Negative (10/14/16 8:19 AM) URINE AND STOOL Most recent to 1 oldest [Reference Range]: UA Turbidity [Clear] Clear (10/14/16 8:19 AM) UA Color [Yellow] Yellow *NA* (10/14/16 8:19 AM) UA pH [5.0-8.0] 5.0 (10/14/16 8:19 AM) UA Spec Grav 1.013 [<=1.030] (10/14/16 8:19 AM) UA Glucose [Negative Negative mg/dL mg/dL] *NA* (10/14/16 8:19 AM) UA Blood [Negative] Small *ABN* (10/14/16 8:19 AM) UA Ketones [Negative Negative mg/dL mg/dL] *NA* (10/14/16 8:19 AM) UA Protein [Negative Negative mg/dL mg/dL] (10/14/16 8:19 AM) UA Urobilinogen <=1.0 mg/dL [0.1-1.0 mg/dL] *NA* (10/14/16 8:19 AM) UA Bili [Negative] Negative *NA* (10/14/16 8:19 AM) UA Leuk Est Small [Negative] *ABN* (10/14/16 8:19 AM) UA Nitrite Positive [Negative] *ABN* (10/14/16 8:19 AM) UA WBC [0-5 /HPF] 7 /HPF *HI* (10/14/16 8:19 AM) UA RBC [0-2 /HPF] 4 /HPF *HI* (10/14/16 8:19 AM) UA Bacteria [None Occasional /HPF Seen /HPF] *NA* (10/14/16 8:19 AM) UA Sq Epi [Few /LPF] Moderate /LPF *ABN* (10/14/16 8:19 AM) UA Mucus [None Seen Few /LPF /LPF] *NA* (10/14/16 8:19 AM) HEMATOLOGY Most recent to 1 oldest [Reference Range]: WBC [3.7-10.4 K/CMM] 5.9 K/CMM (10/14/16 8:19 AM) RBC [4.20-5.40 4.12 M/CMM M/CMM] *LOW* (10/14/16 8:19 AM) Hgb [12.0-16.0 g/dL] 12.0 g/dL (10/14/16 8:19 AM) Hct [36.0-48.0 %] 36.0 % (10/14/16 8:19 AM) MCV [80.0-98.0 fL] 87.2 fL (10/14/16 8:19 AM) MCH [27.0-31.0 pg] 29.2 pg (10/14/16 8:19 AM) MCHC [32.0-36.0 33.5 g/dL g/dL] (10/14/16 8:19 AM) RDW [11.5-14.5 %] 15.0 % *HI* (10/14/16 8:19 AM) Platelet [133-450 238 K/CMM K/CMM] (10/14/16 8:19 AM) MPV [7.4-10.4 fL] 7.8 fL (10/14/16 8:19 AM) Segs [45.0-75.0 %] 65.6 % (10/14/16 8:19 AM) Lymphocytes 24.9 % [20.0-40.0 %] (10/14/16 8:19 AM) Monocytes [2.0-12.0 6.2 % %] (10/14/16 8:19 AM) Eosinophils [0.0-4.0 2.4 % %] (10/14/16 8:19 AM) Basophils [0.0-1.0 0.9 % %] (10/14/16 8:19 AM) Segs-Bands # 3.9 K/CMM [1.5-8.1 K/CMM] (10/14/16 8:19 AM) Lymphocytes # 1.5 K/CMM [1.0-5.5 K/CMM] (10/14/16 8:19 AM) Monocytes # [0.0-0.8 0.4 K/CMM K/CMM] (10/14/16 8:19 AM) Eosinophils # 0.1 K/CMM [0.0-0.5 K/CMM] (10/14/16 8:19 AM) Basophils # [0.0-0.2 0.1 K/CMM K/CMM] (10/14/16 8:19 AM) Immunizations No data available for this [...]
--- OUTSIDE RECORDS SUMMARY | 2018-11-10 00:07 | XMS REPORT | Summary of Care ---
Author Author [facility] Organization [facility] Address Unknown Phone Unavailable Encounter BELIA Johnson(YANY) [id number] Date(s): 11/20/16 - 11/20/16 [facility] [address] [place] [address]- Discharge Diagnosis: Kidney stone on right side Discharge Disposition: Home or Self Care Attending Physician: Rick Ceja MD Vital Signs Most recent to 1 2 oldest [Reference Range]: Height 162.56 cm (11/20/16 7:49 AM) Temperature Oral 97.9 DegF 98.3 DegF [96.4-99.1 DegF] (11/20/16 12:02 PM) (11/20/16 7:49 AM) Blood Pressure 100/55 mmHg 125/77 mmHg [90-140/60-90 mmHg] (11/20/16 12:02 PM) (11/20/16 7:49 AM) Respiratory Rate 18 BRMIN 20 BRMIN [14-20 BRMIN] (11/20/16 12:02 PM) (11/20/16 7:49 AM) Peripheral Pulse 66 bpm 90 bpm Rate [60-100 bpm] (11/20/16 12:02 PM) (11/20/16 7:49 AM) Weight 81.818 kg (11/20/16 7:49 AM) Body Mass Index 30.96 m2 (11/20/16 7:49 AM) Problem List Condition Effective Dates Status Health Status Informant Kidney Active stone(Confirmed) Ovarian Resolved cyst(Confirmed) Vaginal bleeding Active problem(Confirmed) Vaginal Active delivery(Confirmed) Allergies, Adverse Reactions, Alerts Substance Reaction Severity Status NKDA NKDA - No known drug allergies Active Medications Flomax 0.4 mg oral capsule =1 tab, PO, Daily, # 10 tab, 0 Refill(s), Pharmacy: [id number] Start Date: 11/20/16 Stop Date: 11/30/16 Status: Ordered hydromorphone 0.5 mg, Route: IVP, ONCE, Dosing Weight 81.818, kg, Priority: STAT, Start date: 11/20/16 9:42:00 CDT, Stop date: 11/20/16 9:42:00 CDT Start Date: 11/20/16 Stop Date: 11/20/16 Status: Completed ketOROLAC 30 mg, Route: IVP, Drug form: INJ, ONCE, Dosing Weight 81.818, kg, Priority: STA T, Start date: 11/20/16 10:43:00 CDT, Stop date: 11/20/16 10:43:00 CDT Start Date: 11/20/16 Stop Date: 11/20/16 Status: Completed morphine Sulfate 4 mg, 1 mL, Route: IVP, Drug form: SOLN, ONCE, Dosing Weight 81.818, kg, Priorit y: STAT, Start date: 11/20/16 7:55:00 CDT, Stop date: 11/20/16 7:55:00 CDT Notes: (Same as:MORPhine Sulfate) Start Date: 11/20/16 Stop Date: 11/20/16 Status: Completed morphine Sulfate 4 mg, Route: IVP, ONCE, Dosing Weight 81.818, kg, Priority: STAT, Start date: 8:52:00 CDT, Stop date: 11/20/16 8:52:00 CDT Start Date: 11/20/16 Stop Date: 11/20/16 Status: Completed ondansetron 4 mg, 2 mL, Route: IVP, Drug form: INJ, ONCE, Dosing Weight 81.818, kg, Priority : STAT, Start date: 11/20/16 7:55:00 CDT, Stop date: 11/20/16 7:55:00 CDT Notes: (Same as: Kimber) MEDICATION WASTE Product Size: 4 mgProduct Was luisito: ___ mg Start Date: 11/20/16 Stop Date: 11/20/16 Status: Completed promethazine 12.5 mg, Route: IVPB, ONCE, Dosing Weight 81.818, kg, Priority: STAT, Start date : 11/20/16 9:42:00 CDT, Stop date: 11/20/16 9:42:00 CDT Start Date: 11/20/16 Stop Date: 11/20/16 Status: Completed Saline Flush 0.9% 10 mL, Route: IVP, Drug Form: INJ, Dosing Weight 81.818, kg, PRN, PRN Line Flush , Start date: 11/20/16 7:55:00 CDT, Duration: 30 day, Stop date: 12/20/16 7:54:0 0 CDT Notes: (Same as: BD Posiflush) Start Date: 11/20/16 Stop Date: 11/20/16 Status: Discontinued Sodium Chloride 0.9% (Bolus) IV 1,000 mL, 2,000 ml/hr, Infuse Over: 30 minutes, Route: IV, 1,000, Drug form: INJ , ONCE, Priority: STAT, Dosing Weight 81.818 kg, Start date: 11/20/16 7:55:00 CD T, Duration: 1 doses or times, Stop date: 11/20/16 7:55:00 CDT Start Date: 11/20/16 Stop Date: 11/20/16 Status: Completed Tylenol with Codeine #3 oral tablet 1 - 2 tab, PO, Q6H, PRN Pain, X 4 day, # 32 tab, 0 Refill(s) Start Date: 11/20/16 Stop Date: 11/24/16 Status: Ordered Results ELECTROLYTES Most recent to 1 oldest [Reference Range]: Sodium Lvl [135-145 142 mEq/L mEq/L] (11/20/16 8:05 AM) Potassium Lvl 3.6 mEq/L [3.5-5.1 mEq/L] (11/20/16 8:05 AM) Chloride Lvl [95-109 110 mEq/L mEq/L] *HI* (11/20/16 8:05 AM) CO2 [24-32 mEq/L] 27 mEq/L (11/20/16 8:05 AM) AGAP [10.0-20.0 8.6 mEq/L mEq/L] *LOW* (11/20/16 8:05 AM) CHEM PANEL Most recent to 1 oldest [Reference Range]: Creatinine Lvl 0.89 mg/dL [0.50-1.40 mg/dL] (11/20/16 8:05 AM) eGFR 82 mL/min/1.73m2 1 *NA* (11/20/16 8:05 AM) BUN [7-22 mg/dL] 10 mg/dL (11/20/16 8:05 AM) B/C Ratio [6-25] 11 (11/20/16 8:05 AM) Glucose Lvl [70-99 110 mg/dL mg/dL] *HI* (11/20/16 8:05 AM) Total Protein 7.1 g/dL [6.4-8.4 g/dL] (11/20/16 8:05 AM) Albumin Lvl [3.5-5.0 3.6 g/dL g/dL] (11/20/16 8:05 AM) Globulin [2.7-4.2 3.5 g/dL g/dL] (11/20/16 8:05 AM) A/G Ratio [0.7-1.6] 1.0 (11/20/16 8:05 AM) Calcium Lvl 8.7 mg/dL [8.5-10.5 mg/dL] (11/20/16 8:05 AM) ALT [0-65 unit/L] 17 unit/L (11/20/16 8:05 AM) AST [0-37 unit/L] 10 unit/L (11/20/16 8:05 AM) Alk Phos [39-136 89 unit/L unit/L] (11/20/16 8:05 AM) Bili Total [0.2-1.3 0.4 mg/dL mg/dL] (11/20/16 8:05 AM) Amylase Lvl [25-115 83 unit/L unit/L] (11/20/16 8:05 AM) Lipase Lvl [73-393 175 unit/L unit/L] (11/20/16 8:05 AM) 1Result Comment: The eGFR is calculated [...] oldest [Reference Range]: U Preg [Negative] Negative (11/20/16 8:05 AM) URINE AND STOOL Most recent to 1 oldest [Reference Range]: UA Turbidity [Clear] Slight *ABN* (11/20/16 8:05 AM) UA Color Ltyellow *NA* (11/20/16 8:05 AM) UA pH [5.0-8.0] 6.0 (11/20/16 8:05 AM) UA Spec Grav 1.014 [<=1.030] (11/20/16 8:05 AM) UA Glucose [Negative Negative mg/dL mg/dL] *NA* (11/20/16 8:05 AM) UA Blood [Negative] Small *ABN* (11/20/16 8:05 AM) UA Ketones [Negative Negative mg/dL mg/dL] *NA* (11/20/16 8:05 AM) UA Protein [Negative Negative mg/dL mg/dL] (11/20/16 8:05 AM) UA Urobilinogen <=1.0 mg/dL [0.1-1.0 mg/dL] *NA* (11/20/16 8:05 AM) UA Bili [Negative] Negative *NA* (11/20/16 8:05 AM) UA Leuk Est Negative [Negative] (11/20/16 8:05 AM) UA Nitrite Negative [Negative] (11/20/16 8:05 AM) UA WBC [0-5 /HPF] 1 /HPF (11/20/16 8:05 AM) UA RBC [0-2 /HPF] 2 /HPF (11/20/16 8:05 AM) UA Bacteria [None Occasional /HPF Seen /HPF] *NA* (11/20/16 8:05 AM) UA Sq Epi [Few /LPF] Many /LPF *ABN* (11/20/16 8:05 AM) HEMATOLOGY Most recent to 1 oldest [Reference Range]: WBC [3.7-10.4 K/CMM] 6.1 K/CMM (11/20/16 8:05 AM) RBC [4.20-5.40 4.75 M/CMM M/CMM] (11/20/16 8:05 AM) Hgb [12.0-16.0 g/dL] 13.5 g/dL (11/20/16 8:05 AM) Hct [36.0-48.0 %] 40.7 % (11/20/16 8:05 AM) MCV [80.0-98.0 fL] 85.7 fL (11/20/16 8:05 AM) MCH [27.0-31.0 pg] 28.5 pg (11/20/16 8:05 AM) MCHC [32.0-36.0 33.3 g/dL g/dL] (11/20/16 8:05 AM) RDW [11.5-14.5 %] 14.2 % (11/20/16 8:05 AM) Platelet [133-450 267 K/CMM K/CMM] (11/20/16 8:05 AM) MPV [7.4-10.4 fL] 7.6 fL (11/20/16 8:05 AM) Segs [45.0-75.0 %] 64.8 % (11/20/16 8:05 AM) Lymphocytes 26.8 % [20.0-40.0 %] (11/20/16 8:05 AM) Monocytes [2.0-12.0 4.0 % %] (11/20/16 8:05 AM) Eosinophils [0.0-4.0 3.7 % %] (11/20/16 8:05 AM) Basophils [0.0-1.0 0.7 % %] (11/20/16 8:05 AM) Segs-Bands # 4.0 K/CMM [1.5-8.1 K/CMM] (11/20/16 8:05 AM) Lymphocytes # 1.6 K/CMM [1.0-5.5 K/CMM] (11/20/16 8:05 AM) Monocytes # [0.0-0.8 0.2 K/CMM K/CMM] (11/20/16 8:05 AM) Eosinophils # 0.2 K/CMM [0.0-0.5 K/CMM] (11/20/16 8:05 AM) Immunizations No data available for this section Procedures Procedure Date Related Diagnosis Body Site Cholecystectomy Cholecystectomy Cholecystectomy Hysterectomy Hysterectomy Insertion of renal artery stent Lithotripsy Lithotripsy of kidney Tubal ligation Social History Social History Type Response Substance Abuse Use: None. Alcohol Past, Type Beer. Smoking Status Never smoker; Exposure to Tobacco Smoke None; Cigarette Smoking Last 365 Days No; Reg Smoking Cessation Counseling No Assessment and Plan No data available for this section
--- OUTSIDE RECORDS SUMMARY | 2018-11-10 00:07 | XMS REPORT | Summary of Care ---
Author Author [facility] Organization [facility] Address Unknown Phone Unavailable Encounter BELIA Johnson(YANY) [id number] Date(s): 04/11/17 - 04/11/17 [facility] [address] [place] [address]- Discharge Diagnosis: Post-op pain Discharge Disposition: Home or Self Care Attending Physician: Kirby Yuan MD Vital Signs 1 2 3 Most recent to oldest [Reference Range]: 162.56 cm (04/11/17 7:55 AM) Height 98.1 DegF (04/11/17 7:55 AM) Temperature Oral [96.4-99.1 DegF] 98/56 mmHg (04/11/17 12:47 PM) 97/59 mmHg (04/11/17 10:00 AM) 113/80 mmHg (04/11/17 7:55 AM) Blood Pressure [90-140/60-90 mmHg] 18 BRMIN (04/11/17 12:47 PM) 16 BRMIN (04/11/17 10:00 AM) 18 BRMIN (04/11/17 7:55 AM) Respiratory Rate [14-20 BRMIN] 95 bpm (04/11/17 7:55 AM) Peripheral Pulse Rate [60-100 bpm] 100 kg (04/11/17 7:55 AM) Weight 37.84 m2 (04/11/17 7:55 AM) Body Mass Index Problem List Condition Effective Dates Status Health Status Informant Kidney Active stone(Confirmed) Ovarian Resolved cyst(Confirmed) Vaginal bleeding Active problem(Confirmed) Vaginal Active delivery(Confirmed) Allergies, Adverse Reactions, Alerts Substance Reaction Severity Status acetaminophen-codeine1 Mild Active NKDA NKDA - No known drug allergies Active traMADol2 Active 1Puritis 2Puritis Medications Bactrim DS 800 mg- 160 mg oral tablet 1 tab, PO, BID, X 7 day, # 14 tab, 0 Refill(s) Start Date: 04/11/17 Stop Date: 04/18/17 Status: Ordered Colace 100 mg oral capsule 100 mg=1 cap, PO, BID, PRN Constipation, # 20 cap, 0 Refill(s) Start Date: 04/11/17 Status: Ordered morphine Sulfate 4 mg, Route: IVP, ONCE, Dosing Weight 100, kg, Priority: STAT, Start date: 04/11 9:14:00 [employer]NAGER [employer]ER[employer], Stop date: 04/11/17 9:14:00 [employer]NAGER [employer] Start Date: 04/11/17 Stop Date: 04/11/17 Status: Completed NS (Bolus) IV 1,000 mL, 1,000 ml/hr, Infuse Over: 0.5 hr, Route: IV, ONCE, Priority: STAT, Dos ing Weight 100 kg, Start date: 04/11/17 9:13:00 MANAGER 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, Stop date: 04/11/17 9:13:00 MANAGER AEROS[employer] Start Date: 04/11/17 Stop Date: 04/11/17 Status: Completed Zofran 4 mg, Route: IVP, Drug form: INJ, ONCE, Dosing Weight 100, kg, Priority: STAT, S tart date: 04/11/17 9:14:00 MANAGER AEROS[employer], Stop date: 04/11/17 9:14:00 MANAGER AEROS[employer] Start Date: 04/11/17 Stop Date: 04/11/17 Status: Completed Results ELECTROLYTES Most recent to 1 oldest [Reference Range]: Sodium Lvl [135-145 141 mEq/L mEq/L] (04/11/17 9:25 AM) Potassium Lvl 3.4 mEq/L [3.5-5.1 mEq/L] *LOW* (04/11/17 9:25 AM) Chloride Lvl [95-109 108 mEq/L mEq/L] (04/11/17 9:25 AM) CO2 [24-32 mEq/L] 25 mEq/L (04/11/17 9:25 AM) AGAP [10.0-20.0 11.4 mEq/L mEq/L] (04/11/17 9:25 AM) CHEM PANEL Most recent to 1 oldest [Reference Range]: Creatinine Lvl 0.99 mg/dL [0.50-1.40 mg/dL] (04/11/17 9:25 AM) eGFR 72 mL/min/1.73m2 1 *NA* (04/11/1725 AM) BUN [7-22 mg/dL] 12 mg/dL (04/11/17:25 AM) B/C Ratio [6-25] 12 (04/11/17:25 AM) Glucose Lvl [70-99 92 mg/dL mg/dL] (04/11/1725 AM) Total Protein 6.6 g/dL [6.4-8.4 g/dL] (04/11/17:25 AM) Albumin Lvl [3.5-5.0 3.3 g/dL g/dL] *LOW* (04/11/17 AM) Globulin [2.7-4.2 3.3 g/dL g/dL] (04/11/1725 AM) A/G Ratio [0.7-1.6] 1.0 (04/11/1725 AM) Calcium Lvl 8.1 mg/dL [8.5-10.5 mg/dL] *LOW* (04/11/17:25 AM) ALT [0-65 unit/L] 19 unit/L (04/11/1725 AM) AST [0-37 unit/L] 11 unit/L (04/11/17:25 AM) Alk Phos [39-136 98 unit/L unit/L] (04/11/17:25 AM) Bili Total [0.2-1.3 0.1 mg/dL mg/dL] *LOW* (04/11/1725 AM) Lipase Lvl [73-393 180 unit/L unit/L] (04/11/17 9:25 AM) 1Result Comment: The eGFR is calculated [...] oldest [Reference Range]: S Preg [Negative] Negative (04/11/17 9:25 AM) URINE AND STOOL Most recent to 1 oldest [Reference Range]: UA Turbidity [Clear] Marked *ABN* (04/11/17 9:25 AM) UA Color [Yellow] Yellow *NA* (04/11/17 9:25 AM) UA pH [5.0-8.0] 5.0 (04/11/17 9:25 AM) UA Spec Grav 1.027 [<=1.030] (04/11/17 9:25 AM) UA Glucose [Negative Negative mg/dL mg/dL] *NA* (04/11/17 9:25 AM) UA Blood [Negative] Negative (04/11/17 9:25 AM) UA Ketones [Negative Negative mg/dL mg/dL] *NA* (04/11/17 9:25 AM) UA Protein [Negative Negative mg/dL mg/dL] (04/11/17 9:25 AM) UA Urobilinogen <=1.0 mg/dL [0.1-1.0 mg/dL] *NA* (04/11/17 9:25 AM) UA Bili [Negative] Negative *NA* (04/11/17 9:25 AM) UA Leuk Est Small [Negative] *ABN* (04/11/17 9:25 AM) UA Nitrite Negative [Negative] (04/11/17 9:25 AM) UA WBC [0-5 /HPF] 7 /HPF *HI* (04/11/17 9:25 AM) UA Bacteria [None Occasional /HPF Seen /HPF] *NA* (04/11/17 9:25 AM) UA Sq Epi [Few /LPF] Many /LPF *ABN* (04/11/17 9:25 AM) UA CaOx Eliana [None Few /HPF Seen /HPF] *NA* (04/11/17 9:25 AM) UA Mucus [None Seen Many /LPF /LPF] *ABN* (04/11/17 9:25 AM) HEMATOLOGY Most recent to 1 oldest [Reference Range]: WBC [3.7-10.4 K/CMM] 6.6 K/CMM (04/11/17 9:25 AM) RBC [4.20-5.40 4.56 M/CMM M/CMM] (04/11/17 9:25 AM) Hgb [12.0-16.0 g/dL] 13.6 g/dL (04/11/17 9:25 AM) Hct [36.0-48.0 %] 39.7 % (04/11/17 9:25 AM) MCV [80.0-98.0 fL] 86.9 fL (04/11/17 9:25 AM) MCH [27.0-31.0 pg] 29.8 pg (04/11/17 9:25 AM) MCHC [32.0-36.0 34.2 g/dL g/dL] (04/11/17 9:25 AM) RDW [11.5-14.5 %] 14.5 % (04/11/17 9:25 AM) Platelet [133-450 223 K/CMM K/CMM] (04/11/17 9:25 AM) MPV [7.4-10.4 fL] 8.1 fL (04/11/17 9:25 AM) Segs [45.0-75.0 %] 43.4 % *LOW* (04/11/17 9:25 AM) Lymphocytes 45.7 % [20.0-40.0 %] *HI* (04/11/17 9:25 AM) Monocytes [2.0-12.0 6.8 % %] (04/11/17 9:25 AM) Eosinophils [0.0-4.0 3.0 % %] (04/11/17 9:25 AM) Basophils [0.0-1.0 1.1 % %] *HI* (04/11/17 9:25 AM) Segs-Bands # 2.9 K/CMM [1.5-8.1 K/CMM] (04/11/17 9:25 AM) Lymphocytes # 3.0 K/CMM [1.0-5.5 K/CMM] (04/11/17 9:25 AM) Monocytes # [0.0-0.8 0.4 K/CMM K/CMM] (04/11/17 9:25 AM) Eosinophils # 0.2 K/CMM [0.0-0.5 K/CMM] (04/11/17 9:25 AM) Basophils # [0.0-0.2 0.1 K/CMM K/CMM] (04/11/17 9:25 AM) Immunizations No data available for this [...]
--- OUTSIDE RECORDS SUMMARY | 2018-11-10 00:07 | XMS REPORT | Summary of Care ---
Author Author [facility] Organization [facility] Address Unknown Phone Unavailable Encounter BELIA Johnson(YANY) [id number] Date(s): 01/13/17 - 01/13/17 [facility] [address] [place] [address]- Discharge Diagnosis: Fecal impaction of rectum Discharge Diagnosis: Kidney stones Discharge Diagnosis: Abdominal pain in female Discharge Diagnosis: Constipation Discharge Disposition: Home or Self Care Attending Physician: Sindy Zhang MD Vital Signs Most recent to 1 2 oldest [Reference Range]: Height 162.56 cm (01/13/17 8:12 AM) Temperature Oral 99.5 DegF 98.2 DegF [96.4-99.1 DegF] *HI* (01/13/17 8:12 AM) (01/13/17 2:34 PM) Blood Pressure 126/70 mmHg 132/80 mmHg [90-140/60-90 mmHg] (01/13/17 2:34 PM) (01/13/17 8:12 AM) Respiratory Rate 16 BRMIN 18 BRMIN [14-20 BRMIN] (01/13/17 2:34 PM) (01/13/17 8:12 AM) Peripheral Pulse 74 bpm 94 bpm Rate [60-100 bpm] (01/13/17 2:34 PM) (01/13/17 8:12 AM) Weight 90.909 kg (01/13/17 8:12 AM) Body Mass Index 34.4 m2 (01/13/17 8:12 AM) Problem List Condition Effective Dates Status Health Status Informant Kidney Active stone(Confirmed) Ovarian Resolved cyst(Confirmed) Vaginal bleeding Active problem(Confirmed) Vaginal Active delivery(Confirmed) Allergies, Adverse Reactions, Alerts Substance Reaction Severity Status acetaminophen-codeine1 Mild Active NKDA NKDA - No known drug allergies Active traMADol2 Active 1Puritis 2Puritis Medications Dilaudid 1 mg, Route: IVP, ONCE, Dosing Weight 90.909, kg, Priority: STAT, Start date: 11:54:00 CDT, Stop date: 01/13/17 11:54:00 CDT Start Date: 01/13/17 Stop Date: 01/13/17 Status: Completed magnesium citrate 1.745 g/30 mL oral liquid 8.725 ql=030 ml, PO, ONCE, # 300 ml, 0 Refill(s) Start Date: 01/13/17 Status: Ordered morphine Sulfate 4 mg, Route: IVP, ONCE, Dosing Weight 90.909, kg, Priority: STAT, Start date: 8:28:00 CDT, Stop date: 01/13/17 8:28:00 CDT Start Date: 01/13/17 Stop Date: 01/13/17 Status: Completed ondansetron 4 mg, Route: IVP, ONCE, Dosing Weight 90.909, kg, Priority: STAT, Start date: 8:28:00 CDT, Stop date: 01/13/17 8:28:00 CDT Start Date: 01/13/17 Stop Date: 01/13/17 Status: Completed Saline Flush 0.9% 10 mL, Route: IVP, Drug Form: INJ, Dosing Weight 90.909, kg, PRN, PRN Line Flush , Start date: 01/13/17 8:28:00 CDT, Duration: 30 day, Stop date: 02/12/17 8:27:0 0 CDT Notes: (Same as: BD Posiflush) Start Date: 01/13/17 Stop Date: 01/13/17 Status: Discontinued Sodium Chloride 0.9% (Bolus) IV 1,000 mL, 2,000 ml/hr, Infuse Over: 30 minutes, Route: IV, ONCE, Priority: STAT, Dosing Weight 90.909 kg, Start date: 01/13/17 8:28:00 CDT, Duration: 1 doses or times, Stop date: 01/13/17 8:28:00 CDT Start Date: 01/13/17 Stop Date: 01/13/17 Status: Completed Results ELECTROLYTES Most recent to 1 oldest [Reference Range]: Sodium Lvl [135-145 136 mEq/L mEq/L] (01/13/17 8:36 AM) Potassium Lvl 3.7 mEq/L [3.5-5.1 mEq/L] (01/13/17 8:36 AM) Chloride Lvl [95-109 104 mEq/L mEq/L] (01/13/17 8:36 AM) CO2 [24-32 mEq/L] 22 mEq/L *LOW* (01/13/17 8:36 AM) AGAP [10.0-20.0 13.7 mEq/L mEq/L] (01/13/17 8:36 AM) CHEM PANEL Most recent to 1 oldest [Reference Range]: Creatinine Lvl 1.00 mg/dL [0.50-1.40 mg/dL] (01/13/17 8:36 AM) eGFR 71 mL/min/1.73m2 1 *NA* (01/13/17 8:36 AM) BUN [7-22 mg/dL] 14 mg/dL (01/13/17 8:36 AM) B/C Ratio [6-25] 14 (01/13/17 8:36 AM) Glucose Lvl [70-99 139 mg/dL mg/dL] *HI* (01/13/17 8:36 AM) Total Protein 7.2 g/dL [6.4-8.4 g/dL] (01/13/17 8:36 AM) Albumin Lvl [3.5-5.0 3.5 g/dL g/dL] (01/13/17 8:36 AM) Globulin [2.7-4.2 3.7 g/dL g/dL] (01/13/17 8:36 AM) A/G Ratio [0.7-1.6] 0.9 (01/13/17 8:36 AM) Calcium Lvl 8.5 mg/dL [8.5-10.5 mg/dL] (01/13/17 8:36 AM) ALT [0-65 unit/L] 35 unit/L (01/13/17 8:36 AM) AST [0-37 unit/L] 16 unit/L (01/13/17 8:36 AM) Alk Phos [39-136 116 unit/L unit/L] (01/13/17 8:36 AM) Bili Total [0.2-1.3 0.7 mg/dL mg/dL] (01/13/17 8:36 AM) Lipase Lvl [73-393 113 unit/L unit/L] (01/13/17 8:36 AM) 1Result Comment: The eGFR is calculated [...] oldest [Reference Range]: UA Turbidity [Clear] Clear (01/13/17 8:36 AM) UA Color [Yellow] Yellow *NA* (01/13/17 8:36 AM) UA pH [5.0-8.0] 6.0 (01/13/17 8:36 AM) UA Spec Grav >=1.030 [<=1.030] *ABN* (01/13/17 8:36 AM) UA Glucose Negative [Negative] (01/13/17 8:36 AM) UA Blood [Negative] Trace *ABN* (01/13/17 8:36 AM) UA Ketones Negative [Negative] *NA* (01/13/17 8:36 AM) UA Protein [Negative 30 mg/dL mg/dL] *ABN* (01/13/17 8:36 AM) UA Urobilinogen 0.2 EU/dL [0.1-1.0 EU/dL] (01/13/17 8:36 AM) UA Bili [Negative] Negative *NA* (01/13/17 8:36 AM) UA Leuk Est Negative [Negative] (01/13/17 8:36 AM) UA Nitrite Negative [Negative] (01/13/17 8:36 AM) UA WBC [0-5 /HPF] 7 /HPF *HI* (01/13/17 8:36 AM) UA RBC [0-2 /HPF] 34 /HPF *HI* (01/13/17 8:36 AM) UA Sq Epi [Few /LPF] Many /LPF *ABN* (01/13/17 8:36 AM) UA Hyal Cast [0-2 1 /LPF /LPF] (01/13/17 8:36 AM) UA Mucus [None Seen Moderate /LPF /LPF] *ABN* (01/13/17 8:36 AM) UA [place] Yeast [None Few /HPF Seen /HPF] *ABN* (01/13/17 8:36 AM) HEMATOLOGY Most recent to 1 oldest [Reference Range]: WBC [3.7-10.4 K/CMM] 10.2 K/CMM (01/13/17 8:36 AM) RBC [4.20-5.40 4.53 M/CMM M/CMM] (01/13/17 8:36 AM) Hgb [12.0-16.0 g/dL] 13.0 g/dL (01/13/17 8:36 AM) Hct [36.0-48.0 %] 38.3 % (01/13/17 8:36 AM) MCV [80.0-98.0 fL] 84.7 fL (01/13/17 8:36 AM) MCH [27.0-31.0 pg] 28.8 pg (01/13/17 8:36 AM) MCHC [32.0-36.0 34.0 g/dL g/dL] (01/13/17 8:36 AM) RDW [11.5-14.5 %] 14.7 % *HI* (01/13/17 8:36 AM) Platelet [133-450 308 K/CMM K/CMM] (01/13/17 8:36 AM) MPV [7.4-10.4 fL] 7.4 fL (01/13/17 8:36 AM) Segs [45.0-75.0 %] 80.0 % *HI* (01/13/17 8:36 AM) Lymphocytes 13.0 % [20.0-40.0 %] *LOW* (01/13/17 8:36 AM) Monocytes [2.0-12.0 5.1 % %] (01/13/17 8:36 AM) Eosinophils [0.0-4.0 1.4 % %] (01/13/17 8:36 AM) Basophils [0.0-1.0 0.5 % %] (01/13/17 8:36 AM) Segs-Bands # 8.1 K/CMM [1.5-8.1 K/CMM] (01/13/17 8:36 AM) Lymphocytes # 1.3 K/CMM [1.0-5.5 K/CMM] (01/13/17 8:36 AM) Monocytes # [0.0-0.8 0.5 K/CMM K/CMM] (01/13/17 8:36 AM) Eosinophils # 0.1 K/CMM [0.0-0.5 K/CMM] (01/13/17 8:36 AM) Immunizations No data available for this [...] Smoking Cessation Counseling No Assessment and Plan Extracted from: Title: Clinical Document Author: Clifford Pinto MD Date: 01/13/17 SURGICAL CONSULT Attending: Sindy Zhang MDPhone: Service: Emergency Medicine Code status: None Specified=FULL CODE Reason for Admission: BACK PAIN Working DRG: None Documented Isolation: None Documented Consulting Physicians: Clifford Pinto MDOffice: Service: General Surgery CHIEF COMPLAINT: Severe constipation. REASON FOR CONSULTATION: Fecal impaction. HISTORY OF PRESENT ILLNESS: Thank you for allowing me to participate in the care of this patient. 41-year-old lady with medical history significant for chronic pain, recurrent renal stones, recent cystoscopy with bilateral stent placement, presents to [facility] with lower abdominal pain. Pain described as cramping, sharp, stabbing nature, pressure in sensation, increasing severity over the last 3 weeks, associated with severe constipation. Ever since her stent placement, she has been taking a lot of pain medication which has caused significant constipation and she has really not had a bowel movement for over 3 weeks. Due to constipation, pressure, and building pain, and significant abdominal discomfort, patient finally came for further evaluation. Workup in the emergency room including a CT of abdomen pelvis was concerning for mild proctitis with fecal impaction prompting surgical evaluation. PAST MEDICAL HISTORY: 1. History of cocaine abuse. 2. Renal stones. PAST SURGICAL HISTORY: 1. Cholecystectomy. 2. Hysterectomy. 3. Tubal ligation. 4. Renal stone surgery. MEDS: Please refer to the medication reconciliation form. Allergies: traMADol, acetaminophen-codeine, NKDA(NKDA - No known drug allergies) SOCIAL HISTORY: Positive for smoking, drinks on occasion, positive for cocaine abuse. FAMILY HISTORY: Noncontributory RVIEW OF SYSTEMS: Other than what was mentioned in the HPI, complete review of systems were performed and are negative. VitalsTmp(F)[id number] 01/13 14:[id number]--- 01/13 08:[id number]--- 24 Hr Tmax: 99.5F (37.50c) at 01/13 14:34Vital Signs are the last 5 in the past 48 hours. General Appearance: Well appearing, well developed, well nourished, well hydrated, good color, and in no acute distress Head: Normocephalic atraumatic Eyes: Pupils equal/round/reactive to light, no scleral icterus, extraocular movements intact Ears: Normal external shape, normal position Nose: Nares patent and no discharge Neck: Supple, FROM Chest Wall: No retractions, No deformities Lungs: CTA bilaterally, and good air entry Heart: Regular rate and regular rhythm Abdomen: soft, tender lower abdomen, non-distended, no HSM, and no mass Musculoskeletal: No obvious deformity. Moves all 4 extremities, stable gait. Extremities: Symmetric, no obvious defect, and no cyanosis/clubbing/edema. 2+ pulses bilaterally. Neurologic: Alert/appropriate. CN II-XII grossly intact. Clear speech, aao x 3. Psych: Mood congruent affect, responds appropriately to questions. Labs (Last four charted values) WBC 10.2(JAN 13) Hgb 13.0(JAN 13) Hct 38.3(JAN 13) Plt 308(JAN 13) Na 136(JAN 13) K 3.7(JAN 13) CO2 L 22(JAN 13) Cl 104(JAN 13) Cr 1.00(JAN 13) BUN 14(JAN 13) Glucose Random H 139(JAN 13) Ca 8.5(JAN 13) Alk Phos: 116 unit/L (01/13/17 09:12:44) A/G Ratio: 0.9 (01/13/17 09:12:44) ALT: 35 unit/L (01/13/17 09:12:44) Albumin Lvl: 3.5 g/dL (01/13/17 09:12:44) Bili Total: 0.7 mg/dL (01/13/17 09:12:44) Total Protein: 7.2 g/dL (01/13/17 09:12:44) Globulin: 3.7 g/dL (01/13/17 09:12:44) Lipase Lvl: 113 unit/L (01/13/17 09:12:45) DIAGNOSTIC: CT abdomen pelvis reviewed, fecal impaction noted with concerns for rectosigmoid colitis ASSESSMENT: 41-year-old lady with: 1. Fecal impaction. 2. Reactive colitis. 3. Narcotic abuse. 4. History of cocaine abuse. 5. History of kidney stones. PLAN: 1. For the fecal impaction in the rectum, patient will benefit from manual disimpaction. 2. Afterwards, will benefit from a bowel regimen including enemas and stool softeners. 3. For the rectosigmoid colitis, suspected that it is reactive in nature rather than infectious. 4. Defer to the medicine service to see if she will benefit from antibiotics, from surgery standpoint would not require any. 5. Impression plan discussed with the patient, and nursing staff. She is agreeable with the plan for manual disimpaction.
--- OUTSIDE RECORDS SUMMARY | 2018-11-10 00:07 | XMS REPORT | Summary of Care ---
Author Author [facility] Organization [facility] Address Unknown Phone Unavailable Encounter BELIA Johnson(YANY) [id number] Date(s): 04/16/18 - 04/16/18 [facility] [address] [place] [address]- Encounter Diagnosis Generalized obesity (Discharge Diagnosis) - 04/16/18 Abdominal pain, acute (Discharge Diagnosis) - 04/16/18 Acute UTI (Discharge Diagnosis) - 04/16/18 Urinary tract infection, site not specified (Final) - 04/19/18 Left upper quadrant pain (Final) - Unspecified ovarian cyst, unspecified side (Final) - Personal history of urinary calculi (Final) - Personal history of nicotine dependence (Final) - Obesity, unspecified (Final) - Body mass index (BMI) 37.0-37.9, adult (Final) - Acquired absence of other specified parts of digestive tract (Final) - Acquired absence of both cervix and uterus (Final) - Discharge Disposition: Home or Self Care Attending Physician: Kirby Yuan MD Vital Signs 1 2 3 Most recent to oldest [Reference Range]: 162.56 cm (04/16/18 8:07 AM) Height 98 DegF (04/16/18 11:04 AM) 97.6 DegF (04/16/18 8:07 AM) Temperature Oral [96.4-99.1 DegF] 145/98 mmHg *HI* (04/16/18 11:04 AM) 134/87 mmHg (04/16/18 8:27 AM) 128/76 mmHg (04/16/18 8:07 AM) Blood Pressure [90-140/60-90 mmHg] 15 BRMIN (04/16/18 11:04 AM) 16 BRMIN (04/16/18 8:27 AM) 18 BRMIN (04/16/18 8:07 AM) Respiratory Rate [14-20 BRMIN] 72 bpm (04/16/18 11:04 AM) 97 bpm (04/16/18 8:27 AM) 111 bpm *HI* (04/16/18 8:07 AM) Peripheral Pulse Rate [60-100 bpm] 100 kg (04/16/18 8:07 AM) Weight 37.84 m2 (04/16/18 8:07 AM) Body Mass Index Problem List Condition Effective Dates Status Health Status Informant Kidney Active stone(Confirmed) Ovarian Resolved cyst(Confirmed) Vaginal bleeding Active problem(Confirmed) Vaginal Active delivery(Confirmed) Allergies, Adverse Reactions, Alerts Substance Reaction Severity Status codeine sulfate Active traMADol1 Active 1Puritis Medications Bentyl 20 mg, Route: IM, ONCE, Dosing Weight 100, kg, Start date: 04/16/18 8:35:00 BUTCHER HELPER, Stop date: 04/16/18 8:35:00 BUTCHER HELPER Start Date: 04/16/18 Stop Date: 04/16/18 Status: Completed GI cocktail (aluminum hydroxide/magnesium hydroxide/lidocaine/simethicone) 30 mL, Route: PO, Dosing Weight 100, kg, ONCE, STAT, Start date: 04/16/18 8:35:0 0 BUTCHER HELPER, Stop date: 04/16/18 8:35:00 BUTCHER HELPER Start Date: 04/16/18 Stop Date: 04/16/18 Status: Completed Keflex 500 mg oral capsule 500 mg=1 cap, PO, BID, X 7 day, # 14 cap, 0 Refill(s) Start Date: 04/16/18 Stop Date: 04/23/18 Status: Completed ketOROLAC 15 mg, Route: IVP, ONCE, Dosing Weight 100, kg, Priority: STAT, Start date: 04/01 11/16 8:35:00 BUTCHER HELPER, Stop date: 04/16/18 8:35:00 BUTCHER HELPER Start Date: 04/16/18 Stop Date: 04/16/18 Status: Completed Saline Flush 0.9% 10 mL, Route: IVP, Drug Form: INJ, Dosing Weight 100, kg, PRN, PRN Line Flush, S tart date: 04/16/18 8:35:00 BUTCHER HELPER, Duration: 30 day, Stop date: 05/16/18 8:34:[address] Notes: (Same as: BD Posiflush) Start Date: 04/16/18 Stop Date: 04/16/18 Status: Discontinued Sodium Chloride 0.9% (Bolus) IV 1,000 mL, Infuse Over: 1 hr, Route: IV, ONCE, Priority: STAT, Dosing Weight 100 kg, Start date: 04/16/18 8:35:00 BUTCHER HELPER, Stop date: 04/16/18 8:35:00 BUTCHER HELPER Start Date: 04/16/18 Stop Date: 04/16/18 Status: Completed Tylenol 650 mg, Route: PO, Drug form: TAB, ONCE, Dosing Weight 100, kg, Priority: STAT, Start date: 04/16/18 10:07:00 BUTCHER HELPER, Stop date: 04/16/18 10:07:00 BUTCHER HELPER Start Date: 04/16/18 Stop Date: 04/16/18 Status: Completed Zantac 75 oral tablet 75 mg=1 tab, PO, BID, # 14 tab, 0 Refill(s) Start Date: 04/16/18 Stop Date: 05/06/18 Status: Completed Zofran ODT 4 mg oral tablet, disintegrating 4 mg=1 tab, PO, TID, PRN Nausea & Vomiting, Dissolve tab under tongue, # 3 tab, 0 Refill(s) Start Date: 04/16/18 Stop Date: 05/06/18 Status: Completed Results Most recent to 1 oldest [Reference Range]: Neutrophils # 3.3 K/CMM [1.5-8.1 K/CMM] (04/16/18 8:40 AM) Lymphocytes # 1.8 K/CMM [1.0-5.5 K/CMM] (04/16/18 8:40 AM) Monocytes # [0.0-0.8 0.2 K/CMM K/CMM] (04/16/18 8:40 AM) Eosinophils # 0.1 K/CMM [0.0-0.5 K/CMM] (04/16/18 8:40 AM) Basophils # [0.0-0.2 0.1 K/CMM K/CMM] (04/16/18 8:40 AM) eGFR 62 mL/min/1.73m2 1 *NA* (04/16/18 8:40 AM) A/G Ratio [0.7-1.6] 0.9 (04/16/18 8:40 AM) Albumin Lvl [3.5-5.0 3.6 g/dL g/dL] (04/16/18 8:40 AM) Alk Phos [39-136 123 unit/L unit/L] (04/16/18 8:40 AM) ALT [0-65 unit/L] 47 unit/L (04/16/18 8:40 AM) AGAP [10.0-20.0 15.1 mEq/L mEq/L] (04/16/18 8:40 AM) AST [0-37 unit/L] 23 unit/L (04/16/18 8:40 AM) B/C Ratio [6-25] 12 (04/16/18 8:40 AM) Basophils [0.0-1.0 1.1 % %] *HI* (04/16/18 8:40 AM) BUN [7-22 mg/dL] 14 mg/dL (04/16/18 8:40 AM) Calcium Lvl 8.7 mg/dL [8.5-10.5 mg/dL] (04/16/18 8:40 AM) Chloride Lvl [95-109 107 mEq/L mEq/L] (04/16/18 8:40 AM) CO2 [24-32 mEq/L] 24 mEq/L (04/16/18 8:40 AM) Creatinine Lvl 1.12 mg/dL [0.50-1.40 mg/dL] (04/16/18 8:40 AM) Eosinophils [0.0-4.0 2.2 % %] (04/16/18 8:40 AM) Globulin [2.7-4.2 3.9 g/dL g/dL] (04/16/18 8:40 AM) Glucose Lvl [70-99 109 mg/dL mg/dL] *HI* (04/16/18 8:40 AM) Hct [36.0-48.0 %] 41.6 % (04/16/18 8:40 AM) Hgb [12.0-16.0 g/dL] 14.1 g/dL (04/16/18 8:40 AM) Potassium Lvl 4.1 mEq/L [3.5-5.1 mEq/L] (04/16/18 8:40 AM) Lipase Lvl [73-393 134 unit/L unit/L] (04/16/18 8:40 AM) Lymphocytes 32.7 % [20.0-40.0 %] (04/16/18 8:40 AM) MCH [27.0-31.0 pg] 29.6 pg (04/16/18 8:40 AM) MCHC [32.0-36.0 33.9 g/dL g/dL] (04/16/18 8:40 AM) MCV [80.0-98.0 fL] 87.4 fL (04/16/18 8:40 AM) Monocytes [2.0-12.0 4.5 % %] (04/16/18 8:40 AM) MPV [7.4-10.4 fL] 7.4 fL (04/16/18 8:40 AM) Sodium Lvl [135-145 142 mEq/L mEq/L] (04/16/18 8:40 AM) Platelet [133-450 272 K/CMM K/CMM] (04/16/18 8:40 AM) Segs [45.0-75.0 %] 59.5 % (04/16/18 8:40 AM) Total Protein 7.5 g/dL [6.4-8.4 g/dL] (04/16/18 8:40 AM) RBC [4.20-5.40 4.76 M/CMM M/CMM] (04/16/18 8:40 AM) RDW [11.5-14.5 %] 14.4 % (04/16/18 8:40 AM) Bili Total [0.2-1.3 0.3 mg/dL mg/dL] (04/16/18 8:40 AM) Troponin-I <0.02 ng/mL [0.00-0.40 ng/mL] (04/16/18 8:40 AM) UA Bacteria [None Few /HPF Seen /HPF] *NA* (04/16/18 8:40 AM) UA Bili [Negative] Negative *NA* (04/16/18 8:40 AM) UA Blood [Negative] Negative (04/16/18 8:40 AM) UA Color [Yellow] Yellow *NA* (04/16/18 8:40 AM) UA Glucose Negative [Negative] *NA* (04/16/18 8:40 AM) UA Ketones Negative [Negative] *NA* (04/16/18 8:40 AM) UA Leuk Est Trace [Negative] *ABN* (04/16/18 8:40 AM) UA Nitrite Positive [Negative] *ABN* (04/16/18 8:40 AM) UA pH [5.0-8.0] 5.0 (04/16/18 8:40 AM) U Preg [Negative] Negative (04/16/18 8:40 AM) UA Protein Negative [Negative] (04/16/18 8:40 AM) UA RBC [0-2 /HPF] 3 /HPF *HI* (04/16/18 8:40 AM) UA Spec Grav 1.010 [<=1.030] (04/16/18 8:40 AM) UA Sq Epi [Few /LPF] Moderate /LPF *ABN* (04/16/18 8:40 AM) UA Turbidity [Clear] Marked *ABN* (04/16/18 8:40 AM) UA Urobilinogen <=1.0 mg/dL [0.1-1.0 mg/dL] *NA* (04/16/18 8:40 AM) UA WBC [0-5 /HPF] 7 /HPF *HI* (04/16/18 8:40 AM) WBC [3.7-10.4 K/CMM] 5.6 K/CMM (04/16/18 8:40 AM) 1Result Comment: The eGFR is calculated [...] be mul tiplied by the estimated BMI. Immunizations No data available for this section [...] Reg Smoking Cessation Counseling No entered on: 10/27/18 Assessment and Plan No data available for this section
--- OUTSIDE RECORDS SUMMARY | 2018-11-10 00:07 | XMS REPORT | Summary of Care ---
Author Author [facility] Organization [facility] Address Unknown Phone Unavailable Encounter BELIA Johnson(YANY) [id number] Date(s): 04/21/17 - 04/21/17 [facility] [address] [place] [address]- [phone] Discharge Diagnosis: Urinary tract infection, site not specified Discharge Disposition: Home or Self Care Attending Physician: Chan Gunn MD Vital Signs 1 2 3 Most recent to oldest [Reference Range]: 98 DegF (04/21/17 2:22 PM) 98.2 DegF (04/21/17 11:12 AM) Temperature Oral [96.4-99.1 DegF] 133/67 mmHg (04/21/17 2:22 PM) 110/72 mmHg (04/21/17 12:51 PM) 109/78 mmHg (04/21/17 11:12 AM) Blood Pressure [90-140/60-90 mmHg] 22 BRMIN *HI* (04/21/17 2:22 PM) 23 BRMIN *HI* (04/21/17 12:51 PM) 16 BRMIN (04/21/17 11:12 AM) Respiratory Rate [14-20 BRMIN] 93 bpm (04/21/17 11:12 AM) Peripheral Pulse Rate [60-100 bpm] Problem List Condition Effective Dates Status Health Status Informant Kidney Active stone(Confirmed) Ovarian Resolved cyst(Confirmed) Vaginal bleeding Active problem(Confirmed) Vaginal Active delivery(Confirmed) Allergies, Adverse Reactions, Alerts Substance Reaction Severity Status acetaminophen-codeine1 Mild Active NKDA NKDA - No known drug allergies Active traMADol2 Active 1Puritis 2Puritis Medications Colace 100 mg oral capsule 100 mg=1 cap, PO, BID, PRN Constipation, # 20 cap, 0 Refill(s) Start Date: 04/21/17 Status: Ordered Keflex 500 mg oral capsule 500 mg=1 cap, PO, QID, X 5 day, # 20 cap, 0 Refill(s) Start Date: 04/21/17 Stop Date: 04/26/17 Status: Ordered morphine Sulfate 4 mg, Route: IVP, ONCE, Dosing Weight 100, kg, Priority: STAT, Start date: 04/21 11:36:00 HORSEBACK EXCAVATOR, Stop date: 04/21/17 11:36:00 HORSEBACK EXCAVATOR Start Date: 04/21/17 Stop Date: 04/21/17 Status: Completed Motrin 600 mg oral tablet 600 mg=1 tab, PO, Q6H, PRN Pain, take with food, # 30 tab, 0 Refill(s) Start Date: 04/21/17 Stop Date: 04/30/17 Status: Ordered NS (Bolus) IV 1,000 mL, 1,000 ml/hr, Infuse Over: 1 hr, Route: IV, ONCE, Priority: STAT, Dosin g Weight 100 kg, Start date: 04/21/17 11:35:00 HORSEBACK EXCAVATOR, Stop date: 04/21/17 11:35:00 HORSEBACK EXCAVATOR Start Date: 04/21/17 Stop Date: 04/21/17 Status: Completed Zofran 4 mg, Route: IVP, Drug form: INJ, ONCE, Dosing Weight 100, kg, Priority: STAT, S tart date: 04/21/17 11:37:00 HORSEBACK EXCAVATOR, Stop date: 04/21/17 11:37:00 HORSEBACK EXCAVATOR Start Date: 04/21/17 Stop Date: 04/21/17 Status: Completed Results ELECTROLYTES Most recent to 1 oldest [Reference Range]: Sodium Lvl [135-145 140 mEq/L mEq/L] (04/21/17 11:42 AM) Potassium Lvl 3.7 mEq/L [3.5-5.1 mEq/L] (04/21/17 11:42 AM) Chloride Lvl [95-109 110 mEq/L mEq/L] *HI* (04/21/17 11:42 AM) CO2 [24-32 mEq/L] 22 mEq/L *LOW* (04/21/17 11:42 AM) AGAP [10.0-20.0 11.7 mEq/L mEq/L] (04/21/17 11:42 AM) CHEM PANEL Most recent to 1 oldest [Reference Range]: Creatinine Lvl 0.96 mg/dL [0.50-1.40 mg/dL] (04/21/17 11:42 AM) eGFR 74 mL/min/1.73m2 1 *NA* (04/21/17 11:42 AM) BUN [7-22 mg/dL] 8 mg/dL (04/21/17 11:42 AM) B/C Ratio [6-25] 8 (04/21/17 11:42 AM) Glucose Lvl [70-99 112 mg/dL mg/dL] *HI* (04/21/17 11:42 AM) Total Protein 6.9 g/dL [6.4-8.4 g/dL] (04/21/17 11:42 AM) Albumin Lvl [3.5-5.0 3.5 g/dL g/dL] (04/21/17 11:42 AM) Globulin [2.7-4.2 3.4 g/dL g/dL] (04/21/17 11:42 AM) A/G Ratio [0.7-1.6] 1.0 (04/21/17 11:42 AM) Calcium Lvl 8.4 mg/dL [8.5-10.5 mg/dL] *LOW* (04/21/17 11:42 AM) ALT [0-65 unit/L] 39 unit/L (04/21/17 11:42 AM) AST [0-37 unit/L] 18 unit/L (04/21/17 11:42 AM) Alk Phos [39-136 100 unit/L unit/L] (04/21/17 11:42 AM) Bili Total [0.2-1.3 0.6 mg/dL mg/dL] (04/21/17 11:42 AM) Lactic Acid Lvl 1.2 mMol/L [0.5-2.2 mMol/L] (04/21/17 11:42 AM) 1Result Comment: The eGFR is calculated [...] oldest [Reference Range]: U Preg [Negative] Negative (04/21/17 11:42 AM) URINE AND STOOL Most recent to 1 oldest [Reference Range]: UA Turbidity [Clear] Slight *ABN* (04/21/17 11:42 AM) UA Color Ltyellow *NA* (04/21/17 11:42 AM) UA pH [5.0-8.0] 5.0 (04/21/17 11:42 AM) UA Spec Grav 1.008 [<=1.030] (04/21/17 11:42 AM) UA Glucose [Negative Negative mg/dL mg/dL] *NA* (04/21/17 11:42 AM) UA Blood [Negative] Negative (04/21/17 11:42 AM) UA Ketones [Negative Negative mg/dL mg/dL] *NA* (04/21/17 11:42 AM) UA Protein [Negative Negative mg/dL mg/dL] (04/21/17 11:42 AM) UA Urobilinogen <=1.0 mg/dL [0.1-1.0 mg/dL] *NA* (04/21/17 11:42 AM) UA Bili [Negative] Negative *NA* (04/21/17 11:42 AM) UA Leuk Est Trace [Negative] *ABN* (04/21/17 11:42 AM) UA Nitrite Negative [Negative] (04/21/17 11:42 AM) UA WBC [0-5 /HPF] 9 /HPF *HI* (04/21/17 11:42 AM) UA Bacteria [None Occasional /HPF Seen /HPF] *NA* (04/21/17 11:42 AM) UA Sq Epi [Few /LPF] Moderate /LPF *ABN* (04/21/17 11:42 AM) HEMATOLOGY Most recent to 1 oldest [Reference Range]: WBC [3.7-10.4 K/CMM] 6.8 K/CMM (04/21/17 11:42 AM) RBC [4.20-5.40 4.42 M/CMM M/CMM] (04/21/17 11:42 AM) Hgb [12.0-16.0 g/dL] 13.0 g/dL (04/21/17 11:42 AM) Hct [36.0-48.0 %] 38.0 % (04/21/17 11:42 AM) MCV [80.0-98.0 fL] 85.9 fL (04/21/17 11:42 AM) MCH [27.0-31.0 pg] 29.4 pg (04/21/17 11:42 AM) MCHC [32.0-36.0 34.2 g/dL g/dL] (04/21/17 11:42 AM) RDW [11.5-14.5 %] 14.5 % (04/21/17 11:42 AM) Platelet [133-450 268 K/CMM K/CMM] (04/21/17 11:42 AM) MPV [7.4-10.4 fL] 7.4 fL (04/21/17 11:42 AM) Segs [45.0-75.0 %] 58.4 % (04/21/17 11:42 AM) Lymphocytes 31.5 % [20.0-40.0 %] (04/21/17 11:42 AM) Monocytes [2.0-12.0 6.6 % %] (04/21/17 11:42 AM) Eosinophils [0.0-4.0 2.5 % %] (04/21/17 11:42 AM) Basophils [0.0-1.0 1.0 % %] (04/21/17 11:42 AM) Segs-Bands # 4.0 K/CMM [1.5-8.1 K/CMM] (04/21/17 11:42 AM) Lymphocytes # 2.2 K/CMM [1.0-5.5 K/CMM] (11/21/17 11:42 AM) Monocytes # [0.0-0.8 0.5 K/CMM K/CMM] (04/21/17 11:42 AM) Eosinophils # 0.2 K/CMM [0.0-0.5 K/CMM] (04/21/17 11:42 AM) Basophils # [0.0-0.2 0.1 K/CMM K/CMM] (04/21/17 11:42 AM) Immunizations No data available for this [...]
--- OUTSIDE RECORDS SUMMARY | 2018-11-10 00:07 | XMS REPORT | Summary of Care ---
Author Author [facility] Organization [facility] Address Unknown Phone Unavailable Encounter BELIA Johnson(YANY) [id number] Date(s): 03/11/17 - 03/11/17 [facility] [address] [place] [address]- [phone] Discharge Diagnosis: Right flank pain Discharge Diagnosis: Chronic urinary tract infection Discharge Diagnosis: Bilateral kidney stones Discharge Disposition: Home or Self Care Attending Physician: Martinez Babcock MD Vital Signs Most recent to 1 2 oldest [Reference Range]: Height 162.56 cm (03/11/17 7:53 AM) Temperature Oral 98 DegF 97.7 DegF [96.4-99.1 DegF] (03/11/17 10:18 AM) (03/11/17 7:53 AM) Blood Pressure 116/78 mmHg 118/79 mmHg [90-140/60-90 mmHg] (03/11/17 10:18 AM) (03/11/17 7:53 AM) Respiratory Rate 16 BRMIN 18 BRMIN [14-20 BRMIN] (03/11/17 10:18 AM) (03/11/17 7:53 AM) Peripheral Pulse 98 bpm 97 bpm Rate [60-100 bpm] (03/11/17 10:18 AM) (03/11/17 7:53 AM) Weight 90.909 kg (03/11/17 7:53 AM) Body Mass Index 34.4 m2 (03/11/17 7:53 AM) Problem List Condition Effective Dates Status Health Status Informant Kidney Active stone(Confirmed) Ovarian Resolved cyst(Confirmed) Vaginal bleeding Active problem(Confirmed) Vaginal Active delivery(Confirmed) Allergies, Adverse Reactions, Alerts Substance Reaction Severity Status acetaminophen-codeine1 Mild Active NKDA NKDA - No known drug allergies Active traMADol2 Active 1Puritis 2Puritis Medications Bactrim DS 800 mg- 160 mg oral tablet 1 tab, PO, BID, X 10 day, # 20 tab, 0 Refill(s) Start Date: 03/11/17 Stop Date: 03/21/17 Status: Ordered ibuprofen 600 mg oral tablet 600 mg=1 tab, PO, Q6H, PRN Pain or Fever, Take with food, X 10 day, # 40 tab, 0 Refill(s) Start Date: 03/11/17 Stop Date: 03/21/17 Status: Ordered ketOROLAC 30 mg, Route: IVP, Drug form: INJ, ONCE, Dosing Weight 90.909, kg, Priority: STA T, Start date: 03/11/17 9:36:00 CDT, Stop date: 03/11/17 9:36:00 CDT Start Date: 03/11/17 Stop Date: 03/11/17 Status: Completed morphine Sulfate 4 mg, Route: IVP, ONCE, Dosing Weight 90.909, kg, Priority: STAT, Start date: 7:57:00 CDT, Stop date: 03/11/17 7:57:00 CDT Start Date: 03/11/17 Stop Date: 03/11/17 Status: Completed ondansetron 4 mg, Route: IVP, ONCE, Dosing Weight 90.909, kg, Priority: STAT, Start date: 7:57:00 CDT, Stop date: 03/11/17 7:57:00 CDT Start Date: 03/11/17 Stop Date: 03/11/17 Status: Completed Saline Flush 0.9% 10 mL, Route: IVP, Drug Form: INJ, Dosing Weight 90.909, kg, PRN, PRN Line Flush , Start date: 03/11/17 7:57:00 CDT, Duration: 30 day, Stop date: 04/10/17 6:56:0 0 [employer]ING [employer]AD[employer] Notes: (Same as: BD Posiflush) Start Date: 03/11/17 Stop Date: 03/11/17 Status: Discontinued Sodium Chloride 0.9% (Bolus) IV 1,000 mL, 2,000 ml/hr, Infuse Over: 30 minutes, Route: IV, ONCE, Priority: STAT, Dosing Weight 90.909 kg, Start date: 03/11/17 7:57:00 CDT, Duration: 1 doses or times, Stop date: 03/11/17 7:57:00 CDT Start Date: 03/11/17 Stop Date: 03/11/17 Status: Completed Zofran ODT 4 mg oral tablet, disintegrating 4 mg=1 tab, PO, BID, PRN Nausea and Vomiting, Dissolve tab under tongue, # 10 ta b, 0 Refill(s) Start Date: 03/11/17 Stop Date: 03/16/17 Status: Ordered Results ELECTROLYTES Most recent to 1 oldest [Reference Range]: Sodium Lvl [135-145 139 mEq/L mEq/L] (03/11/17 8:23 AM) Potassium Lvl 3.2 mEq/L [3.5-5.1 mEq/L] *LOW* (03/11/17 8:23 AM) Chloride Lvl [95-109 105 mEq/L mEq/L] (03/11/17 8:23 AM) CO2 [24-32 mEq/L] 26 mEq/L (03/11/17 8:23 AM) AGAP [10.0-20.0 11.2 mEq/L mEq/L] (03/11/17 8:23 AM) CHEM PANEL Most recent to 1 oldest [Reference Range]: Creatinine Lvl 1.10 mg/dL [0.50-1.40 mg/dL] (03/11/17 8:23 AM) eGFR 63 mL/min/1.73m2 1 *NA* (03/11/17 8:23 AM) BUN [7-22 mg/dL] 11 mg/dL (03/11/17 8:23 AM) B/C Ratio [6-25] 10 (03/11/17 8:23 AM) Glucose Lvl [70-99 137 mg/dL mg/dL] *HI* (03/11/17 8:23 AM) Total Protein 6.6 g/dL [6.4-8.4 g/dL] (03/11/17 8:23 AM) Albumin Lvl [3.5-5.0 3.2 g/dL g/dL] *LOW* (03/11/17 8:23 AM) Globulin [2.7-4.2 3.4 g/dL g/dL] (10/11/17 8:23 AM) A/G Ratio [0.7-1.6] 0.9 (03/11/1723 AM) Calcium Lvl 8.4 mg/dL [8.5-10.5 mg/dL] *LOW* (03/11/1723 AM) ALT [0-65 unit/L] 22 unit/L (03/11/1723 AM) AST [0-37 unit/L] 14 unit/L (03/11/17 AM) Alk Phos [39-136 113 unit/L unit/L] (03/11/1723 AM) Bili Total [0.2-1.3 0.3 mg/dL mg/dL] (03/11/17 AM) Lipase Lvl [73-393 149 unit/L unit/L] (03/11/1723 AM) 1Result Comment: The eGFR is calculated [...] oldest [Reference Range]: U Preg [Negative] Negative (03/11/17:23 AM) URINE AND STOOL Most recent to 1 oldest [Reference Range]: UA Turbidity [Clear] Marked *ABN* (03/11/1723 AM) UA Color [Yellow] Yellow *NA* (03/11/1723 AM) UA pH [5.0-8.0] 5.0 (03/11/17 8:23 AM) UA Spec Grav 1.017 [<=1.030] (03/11/1723 AM) UA Glucose [Negative Negative mg/dL mg/dL] *NA* (03/11/17 8:23 AM) UA Blood [Negative] Negative (03/11/17 8:23 AM) UA Ketones [Negative Negative mg/dL mg/dL] *NA* (03/11/17 8:23 AM) UA Protein [Negative 30 mg/dL mg/dL] *ABN* (03/11/17 8:23 AM) UA Urobilinogen <=1.0 mg/dL [0.1-1.0 mg/dL] *NA* (03/11/17 8:23 AM) UA Bili [Negative] Negative *NA* (03/11/17 8:23 AM) UA Leuk Est Large [Negative] *ABN* (03/11/17 8:23 AM) UA Nitrite Negative [Negative] (03/11/17 8:23 AM) UA WBC [0-5 /HPF] >182 /HPF *HI* (03/11/17 8:23 AM) UA RBC [0-2 /HPF] 13 /HPF *HI* (03/11/17 8:23 AM) UA Bacteria [None Few /HPF Seen /HPF] *NA* (03/11/17 8:23 AM) UA Sq Epi [Few /LPF] Many /LPF *ABN* (03/11/17 8:23 AM) UA Hyal Cast [0-2 1 /LPF /LPF] (03/11/17 8:23 AM) UA Mucus [None Seen Few /LPF /LPF] *NA* (03/11/17 8:23 AM) HEMATOLOGY Most recent to 1 oldest [Reference Range]: WBC [3.7-10.4 K/CMM] 8.0 K/CMM (03/11/17 8:23 AM) RBC [4.20-5.40 4.42 M/CMM M/CMM] (03/11/17 8:23 AM) Hgb [12.0-16.0 g/dL] 13.1 g/dL (03/11/17 8:23 AM) Hct [36.0-48.0 %] 37.6 % (03/11/17 8:23 AM) MCV [80.0-98.0 fL] 85.0 fL (03/11/17 8:23 AM) MCH [27.0-31.0 pg] 29.7 pg (03/11/17 823 AM) MCHC [32.0-36.0 34.9 g/dL g/dL] (03/11/17 823 AM) RDW [11.5-14.5 %] 14.1 % (03/11/17 8:23 AM) Platelet [133-450 236 K/CMM K/CMM] (03/11/1723 AM) MPV [7.4-10.4 fL] 7.4 fL (03/11/17 8:23 AM) Segs [45.0-75.0 %] 71.6 % (03/11/1723 AM) Lymphocytes 19.3 % [20.0-40.0 %] *LOW* (03/11/17:23 AM) Monocytes [2.0-12.0 5.3 % %] (03/11/17 8:23 AM) Eosinophils [0.0-4.0 2.9 % %] (03/11/17 8:23 AM) Basophils [0.0-1.0 0.9 % %] (03/11/17 8:23 AM) Segs-Bands # 5.8 K/CMM [1.5-8.1 K/CMM] (03/11/17 8:23 AM) Lymphocytes # 1.6 K/CMM [1.0-5.5 K/CMM] (03/11/17 8:23 AM) Monocytes # [0.0-0.8 0.4 K/CMM K/CMM] (03/11/17 8:23 AM) Eosinophils # 0.2 K/CMM [0.0-0.5 K/CMM] (03/11/17 8:23 AM) Basophils # [0.0-0.2 0.1 K/CMM K/CMM] (03/11/17 8:23 AM) Immunizations No data available for this [...]
--- OUTSIDE RECORDS SUMMARY | 2018-11-10 00:07 | XMS REPORT | Summary of Care ---
Author Author [facility] Organization [facility] Address Unknown Phone Unavailable Encounter BELIA Johnson(YANY) [id number] Date(s): 08/26/18 - 08/26/18 [facility] [address] [place] [address]- Discharge Disposition: Left Against Medical Advise Attending Physician: Danyel Forte MD Vital Signs 1 2 3 Most recent to oldest [Reference Range]: 162.56 cm (08/26/18 8:13 AM) Height 98.2 DegF (08/26/18 9:05 AM) 98.1 DegF (08/26/18 8:13 AM) Temperature Oral [96.4-99.1 DegF] 119/90 mmHg (08/26/18 10:37 AM) 113/80 mmHg (08/26/18 9:05 AM) 125/71 mmHg (08/26/18 8:13 AM) Blood Pressure [90-140/60-90 mmHg] 23 BRMIN *HI* (08/26/18 10:37 AM) 17 BRMIN (08/26/18 9:05 AM) 16 BRMIN (08/26/18 8:13 AM) Respiratory Rate [14-20 BRMIN] 83 bpm (08/26/18 9:05 AM) 100 bpm (08/26/18 8:13 AM) Peripheral Pulse Rate [60-100 bpm] 100 kg (08/26/18 8:13 AM) Weight 37.84 m2 (08/26/18 8:13 AM) Body Mass Index Problem List Condition Effective Dates Status Health Status Informant Kidney Active stone(Confirmed) Ovarian Resolved cyst(Confirmed) Vaginal bleeding Active problem(Confirmed) Vaginal Active delivery(Confirmed) Allergies, Adverse Reactions, Alerts Substance Reaction Severity Status codeine sulfate Active traMADol1 Active 1Puritis Medications acetaminophen 500 mg, Route: PO, ONCE, Dosing Weight 100, kg, Priority: STAT, Start date: 07/31 01/17 10:27:00 CDT, Stop date: 08/26/18 10:27:00 CDT, .. Start Date: 08/26/18 Stop Date: 08/26/18 Status: Completed Results ELECTROLYTES Most recent to 1 oldest [Reference Range]: Sodium Lvl [135-145 141 mEq/L mEq/L] (08/26/18 8:34 AM) Potassium Lvl 4.1 mEq/L [3.5-5.1 mEq/L] (08/26/18 8:34 AM) Chloride Lvl [95-109 111 mEq/L mEq/L] *HI* (08/26/18 8:34 AM) CO2 [24-32 mEq/L] 24 mEq/L (08/26/18 8:34 AM) AGAP [10.0-20.0 10.1 mEq/L mEq/L] (08/26/18 8:34 AM) CHEM PANEL Most recent to 1 oldest [Reference Range]: Creatinine Lvl 1.01 mg/dL [0.50-1.40 mg/dL] (08/26/18 8:34 AM) eGFR 70 mL/min/1.73m2 1 *NA* (08/26/18 8:34 AM) BUN [7-22 mg/dL] 14 mg/dL (08/26/18 8:34 AM) B/C Ratio [6-25] 14 (08/26/18 8:34 AM) Glucose Lvl [70-99 111 mg/dL mg/dL] *HI* (08/26/18 8:34 AM) Total Protein 6.4 g/dL [6.4-8.4 g/dL] (08/26/18 8:34 AM) Albumin Lvl [3.5-5.0 3.3 g/dL g/dL] *LOW* (08/26/18 8:34 AM) Globulin [2.7-4.2 3.1 g/dL g/dL] (08/26/18 8:34 AM) A/G Ratio [0.7-1.6] 1.1 (08/26/18 8:34 AM) Calcium Lvl 8.6 mg/dL [8.5-10.5 mg/dL] (08/26/18 8:34 AM) ALT [0-65 unit/L] 29 unit/L (08/26/18 8:34 AM) AST [0-37 unit/L] 17 unit/L (08/26/18 8:34 AM) Alk Phos [39-136 94 unit/L unit/L] (08/26/18 8:34 AM) Bili Total [0.2-1.3 0.3 mg/dL mg/dL] (08/26/18 8:34 AM) 1Result Comment: The eGFR is calculated [...] 1 oldest [Reference Range]: Total CK [12-191 72 unit/L unit/L] (08/26/18 8:34 AM) CK MB [0.5-3.6 <1.0 ng/mL ng/mL] (08/26/18 8:34 AM) CK MB Index <1.4 [0.0-2.5] (08/26/18 8:34 AM) Troponin-I <0.02 ng/mL [0.00-0.40 ng/mL] (08/26/18 8:34 AM) DRUG SCREEN Most recent to 1 oldest [Reference Range]: U Amph Scr Negative [Negative] *NA* (08/26/18 9:29 AM) U Elaine Scr Negative [Negative] *NA* (08/26/18 9:29 AM) U Benzodiaz Scr Positive [Negative] *ABN* (08/26/18 9:29 AM) U Cannab Scr Positive [Negative] *ABN* (08/26/18 9:29 AM) U Cocaine Scr Negative [Negative] *NA* (08/26/18 9:29 AM) U Opiate Scr Positive [Negative] *ABN* (08/26/18 9:29 AM) U Phencyclidine Scr Negative [Negative] *NA* (08/26/18 9:29 AM) UDS Note See Note (08/26/18 9:29 AM) HEMATOLOGY Most recent to 1 oldest [Reference Range]: WBC [3.7-10.4 K/CMM] 7.6 K/CMM (08/26/18 8:34 AM) RBC [4.20-5.40 4.12 M/CMM M/CMM] *LOW* (08/26/18 8:34 AM) Hgb [12.0-16.0 g/dL] 12.3 g/dL (08/26/18 8:34 AM) Hct [36.0-48.0 %] 35.9 % *LOW* (08/26/18 8:34 AM) MCV [80.0-98.0 fL] 87.1 fL (08/26/18 8:34 AM) MCH [27.0-31.0 pg] 29.8 pg (08/26/18 8:34 AM) MCHC [32.0-36.0 34.2 g/dL g/dL] (08/26/18 8:34 AM) RDW [11.5-14.5 %] 14.8 % *HI* (08/26/18 8:34 AM) MPV [7.4-10.4 fL] 8.0 fL (08/26/18 8:34 AM) Platelet [133-450 241 K/CMM K/CMM] (08/26/18 8:34 AM) Segs [45.0-75.0 %] 72.7 % (08/26/18 8:34 AM) Lymphocytes 20.2 % [20.0-40.0 %] (08/26/18 8:34 AM) Monocytes [2.0-12.0 5.1 % %] (08/26/18 8:34 AM) Eosinophils [0.0-4.0 1.2 % %] (08/26/18 8:34 AM) Basophils [0.0-1.0 0.8 % %] (08/26/18 8:34 AM) Neutrophils # 5.5 K/CMM [1.5-8.1 K/CMM] (08/26/18 8:34 AM) Lymphocytes # 1.5 K/CMM [1.0-5.5 K/CMM] (08/26/18 8:34 AM) Monocytes # [0.0-0.8 0.4 K/CMM K/CMM] (08/26/18 8:34 AM) Eosinophils # 0.1 K/CMM [0.0-0.5 K/CMM] (08/26/18 8:34 AM) Basophils # [0.0-0.2 0.1 K/CMM K/CMM] (08/26/18 8:34 AM) RBC Morph Normal (08/26/18 8:34 AM) Plt Morph Normal (08/26/18 8:34 AM) PT [12.0-14.7 13.1 seconds seconds] (08/26/18 8:34 AM) INR [0.85-1.17] 1.01 (08/26/18 8:34 AM) PTT [22.9-35.8 24.2 seconds seconds] (08/26/18 8:34 AM) Immunizations No data available for this [...] Reg Smoking Cessation Counseling No entered on: 08/26/18 Assessment and Plan No data available for this section
--- OUTSIDE RECORDS SUMMARY | 2018-11-10 00:07 | XMS REPORT | Summary of Care ---
Author Author [facility] Organization [facility] Address Unknown Phone Unavailable Encounter BELIA Johnson(YANY) [id number] Date(s): 04/03/17 - 04/03/17 [facility] [address] [place] [address]- Discharge Diagnosis: Nausea and vomiting in adult Discharge Diagnosis: Hernia, umbilical Discharge Disposition: Home or Self Care Attending Physician: Donald Ortega MD Vital Signs Most recent to 1 2 oldest [Reference Range]: Height 162.56 cm (04/03/17 7:53 AM) Temperature Oral 97.9 DegF 98.3 DegF [96.4-99.1 DegF] (04/03/17 11:43 AM) (04/03/17 7:53 AM) Blood Pressure 109/74 mmHg 145/74 mmHg [90-140/60-90 mmHg] (04/03/17 11:43 AM) *HI* (04/03/17 7:53 AM) Respiratory Rate 20 BRMIN 18 BRMIN [14-20 BRMIN] (04/03/17 11:43 AM) (04/03/17 7:53 AM) Peripheral Pulse 71 bpm 103 bpm Rate [60-100 bpm] (04/03/17 11:43 AM) *HI* (04/03/17 7:53 AM) Weight 90.909 kg (04/03/17 7:53 AM) Body Mass Index 34.4 m2 (04/03/17 7:53 AM) Problem List Condition Effective Dates Status Health Status Informant Kidney Active stone(Confirmed) Ovarian Resolved cyst(Confirmed) Vaginal bleeding Active problem(Confirmed) Vaginal Active delivery(Confirmed) Allergies, Adverse Reactions, Alerts Substance Reaction Severity Status acetaminophen-codeine1 Mild Active NKDA NKDA - No known drug allergies Active traMADol2 Active 1Puritis 2Puritis Medications GI cocktail 30 mL, Route: PO, Dosing Weight 90.909, kg, ONCE, STAT, Start date: 04/03/17 8:5 9:00 CDT, Stop date: 04/03/17 8:59:00 CDT Start Date: 04/03/17 Stop Date: 04/03/17 Status: Completed morphine Sulfate 4 mg, Route: IVP, ONCE, Dosing Weight 90.909, kg, Priority: STAT, Start date: 8:03:00 CDT, Stop date: 04/03/17 8:03:00 CDT Start Date: 04/03/17 Stop Date: 04/03/17 Status: Completed ondansetron 4 mg, Route: IVP, ONCE, Dosing Weight 90.909, kg, Priority: STAT, Start date: 8:03:00 CDT, Stop date: 04/03/17 8:03:00 CDT Start Date: 04/03/17 Stop Date: 04/03/17 Status: Completed Pepcid 20 mg oral tablet 20 mg=1 tab, PO, BID, # 60 tab, 0 Refill(s) Start Date: 04/03/17 Status: Ordered Saline Flush 0.9% 10 mL, Route: IVP, Drug Form: INJ, Dosing Weight 90.909, kg, PRN, PRN Line Flush , Start date: 04/03/17 8:03:00 CDT, Duration: 30 day, Stop date: 05/03/17 7:02:0 0 [employer]VIEW TRA[employer] Start Date: 04/03/17 Stop Date: 04/03/17 Status: Discontinued Sodium Chloride 0.9% (Bolus) IV 1,000 mL, Infuse Over: 1 hr, Route: IV, ONCE, Priority: STAT, Dosing Weight 90.9 09 kg, Start date: 04/03/17 8:03:00 CDT, Duration: 1 doses or times, Stop date: 04/03/17 8:03:00 CDT Start Date: 04/03/17 Stop Date: 04/03/17 Status: Completed Zofran ODT 4 mg oral tablet, disintegrating 4 mg=1 tab, PO, BID, PRN Nausea and Vomiting, Dissolve tab under tongue, # 10 ta b, 0 Refill(s) Start Date: 04/03/17 Stop Date: 04/08/17 Status: Ordered Results ELECTROLYTES Most recent to 1 oldest [Reference Range]: Sodium Lvl [135-145 141 mEq/L mEq/L] (04/03/17 8:27 AM) Potassium Lvl 3.2 mEq/L [3.5-5.1 mEq/L] *LOW* (04/03/17 8:27 AM) Chloride Lvl [95-109 111 mEq/L mEq/L] *HI* (04/03/17 8:27 AM) CO2 [24-32 mEq/L] 21 mEq/L *LOW* (04/03/17 8:27 AM) AGAP [10.0-20.0 12.2 mEq/L mEq/L] (04/03/17 8:27 AM) CHEM PANEL Most recent to 1 oldest [Reference Range]: Creatinine Lvl 1.08 mg/dL [0.50-1.40 mg/dL] (04/03/17 8:27 AM) eGFR 65 mL/min/1.73m2 1 *NA* (04/03/17 8:27 AM) BUN [7-22 mg/dL] 16 mg/dL (04/03/17 8:27 AM) B/C Ratio [6-25] 15 (04/03/17 8:27 AM) Glucose Lvl [70-99 94 mg/dL mg/dL] (04/03/17 8:27 AM) Total Protein 7.2 g/dL [6.4-8.4 g/dL] (04/03/17 8:27 AM) Albumin Lvl [3.5-5.0 3.8 g/dL g/dL] (04/03/17 8:27 AM) Globulin [2.7-4.2 3.4 g/dL g/dL] (04/03/17 8:27 AM) A/G Ratio [0.7-1.6] 1.1 (04/03/17 8:27 AM) Calcium Lvl 8.1 mg/dL [8.5-10.5 mg/dL] *LOW* (04/03/17 8:27 AM) ALT [0-65 unit/L] 18 unit/L (04/03/17 8:27 AM) AST [0-37 unit/L] 10 unit/L (04/03/17 8:27 AM) Alk Phos [39-136 112 unit/L unit/L] (04/03/17 8:27 AM) Bili Total [0.2-1.3 0.4 mg/dL mg/dL] (04/03/17 8:27 AM) Lipase Lvl [73-393 140 unit/L unit/L] (04/03/17 8:27 AM) 1Result Comment: The eGFR is calculated [...] [Reference Range]: UA Turbidity [Clear] Slight *ABN* (04/03/17 8:27 AM) UA Color Ltyellow *NA* (04/03/17 8:27 AM) UA pH [5.0-8.0] 5.0 (04/03/17 8:27 AM) UA Spec Grav 1.013 [<=1.030] (04/03/17 8:27 AM) UA Glucose [Negative Negative mg/dL mg/dL] *NA* (04/03/17 8:27 AM) UA Blood [Negative] Negative (04/03/17 8:27 AM) UA Ketones [Negative Negative mg/dL mg/dL] *NA* (04/03/17 8:27 AM) UA Protein [Negative Negative mg/dL mg/dL] (04/03/17 8:27 AM) UA Urobilinogen <=1.0 mg/dL [0.1-1.0 mg/dL] *NA* (04/03/17 8:27 AM) UA Bili [Negative] Negative *NA* (04/03/17 8:27 AM) UA Leuk Est Negative [Negative] (04/03/17 8:27 AM) UA Nitrite Negative [Negative] (04/03/17 8:27 AM) UA WBC [0-5 /HPF] 2 /HPF (04/03/17 8:27 AM) UA RBC [0-2 /HPF] 1 /HPF (04/03/17 8:27 AM) UA Bacteria [None Occasional /HPF Seen /HPF] *NA* (04/03/17 8:27 AM) UA Sq Epi [Few /LPF] Moderate /LPF *ABN* (04/03/17 8:27 AM) UA Mucus [None Seen Few /LPF /LPF] *NA* (04/03/17 8:27 AM) HEMATOLOGY Most recent to 1 oldest [Reference Range]: WBC [3.7-10.4 K/CMM] 6.0 K/CMM (04/03/17 8:27 AM) RBC [4.20-5.40 4.43 M/CMM M/CMM] (04/03/17 8:27 AM) Hgb [12.0-16.0 g/dL] 13.2 g/dL (04/03/17 8:27 AM) Hct [36.0-48.0 %] 38.0 % (04/03/17 8:27 AM) MCV [80.0-98.0 fL] 85.9 fL (04/03/17 8:27 AM) MCH [27.0-31.0 pg] 29.8 pg (04/03/17 8:27 AM) MCHC [32.0-36.0 34.6 g/dL g/dL] (04/03/17 8:27 AM) RDW [11.5-14.5 %] 14.5 % (04/03/17 8:27 AM) Platelet [133-450 281 K/CMM K/CMM] (04/03/17 8:27 AM) MPV [7.4-10.4 fL] 7.6 fL (04/03/17 8:27 AM) Segs [45.0-75.0 %] 69.1 % (04/03/17 8:27 AM) Lymphocytes 22.5 % [20.0-40.0 %] (04/03/17 8:27 AM) Monocytes [2.0-12.0 5.8 % %] (04/03/17 8:27 AM) Eosinophils [0.0-4.0 1.8 % %] (04/03/17 8:27 AM) Basophils [0.0-1.0 0.8 % %] (04/03/17 8:27 AM) Segs-Bands # 4.2 K/CMM [1.5-8.1 K/CMM] (04/03/17 8:27 AM) Lymphocytes # 1.4 K/CMM [1.0-5.5 K/CMM] (04/03/17 8:27 AM) Monocytes # [0.0-0.8 0.4 K/CMM K/CMM] (04/03/17 8:27 AM) Eosinophils # 0.1 K/CMM [0.0-0.5 K/CMM] (04/03/17 8:27 AM) Immunizations No data available for this [...]
--- OUTSIDE RECORDS SUMMARY | 2018-11-10 00:07 | XMS REPORT | Summary of Care ---
Author Author [facility] Organization [facility] Address Unknown Phone Unavailable Encounter BELIA Johnson(YANY) [id number] Date(s): 10/27/18 - 10/27/18 [facility] [address] [place] [address]- Encounter Diagnosis Generalized abdominal pain (Discharge Diagnosis) - 10/27/18 Acute UTI (Discharge Diagnosis) - 10/27/18 Discharge Disposition: Home or Self Care Attending Physician: Danyel Forte MD Vital Signs 1 2 3 Most recent to oldest [Reference Range]: 162.56 cm (10/27/18 7:50 AM) Height 98 DegF (10/27/18 7:50 AM) Temperature Oral [96.4-99.1 DegF] 118/88 mmHg (10/27/18 12:15 PM) 121/76 mmHg (10/27/18 11:06 AM) 115/80 mmHg (10/27/18 7:50 AM) Blood Pressure [90-140/60-90 mmHg] 15 BRMIN (10/27/18 12:15 PM) 18 BRMIN (10/27/18 11:06 AM) 18 BRMIN (10/27/18 7:50 AM) Respiratory Rate [14-20 BRMIN] 95 bpm (10/27/18 7:50 AM) Peripheral Pulse Rate [60-100 bpm] 100 kg (10/27/18 7:50 AM) Weight 37.84 m2 (10/27/18 7:50 AM) Body Mass Index Problem List Condition Effective Dates Status Health Status Informant Kidney Active stone(Confirmed) Ovarian Resolved cyst(Confirmed) Vaginal bleeding Active problem(Confirmed) Vaginal Active delivery(Confirmed) Allergies, Adverse Reactions, Alerts Substance Reaction Severity Status codeine sulfate Active traMADol1 Active 1Puritis Medications Al hydroxide/Mg hydroxide/simethicone 30 mL, Route: PO, Drug Form: SUSP, ONCE, Start date: 10/27/18 10:08:00 CDT, Stop date: 10/27/18 10:08:00 CDT Notes: (aluminum hydroxide-magnesium hyd-simethicone 113-213-85tp/5ml 30 ml ud S US) Start Date: 10/27/18 Stop Date: 10/27/18 Status: Completed famotidine 20 mg, 2 mL, Route: IVP, Drug form: INJ, ONCE, Dosing Weight 100, kg, Priority: STAT, Start date: 10/27/18 9:52:00 CDT, Stop date: 10/27/18 9:52:00 CDT Notes: (Same as: Pepcid)Can be dilute in 5-10cc NS IVP: Slow IV push over at le ast 2 minutes. Start Date: 10/27/18 Stop Date: 10/27/18 Status: Completed GI cocktail (aluminum hydroxide/magnesium hydroxide/lidocaine/simethicone) 30 mL, Route: PO, Dosing Weight 100, kg, ONCE, STAT, Start date: 10/27/18 9:52:0 0 CDT, Stop date: 10/27/18 9:52:00 CDT Start Date: 10/27/18 Stop Date: 10/27/18 Status: Deleted Keflex 500 mg oral capsule 500 mg=1 cap, PO, QID, X 5 day, # 20 cap, 0 Refill(s) Start Date: 10/27/18 Stop Date: 11/01/18 Status: Ordered morphine Sulfate 4 mg, 1 mL, Route: IVP, Drug form: SOLN, ONCE, Dosing Weight 100, kg, Priority: STAT, Start date: 10/27/18 10:33:00 CDT, Stop date: 10/27/18 10:33:00 CDT Notes: (Same as:MORPhine Sulfate) Start Date: 10/27/18 Stop Date: 10/27/18 Status: Completed Sodium Chloride 0.9% (Bolus) IV 1,000 mL, 1000 ml/hr, Infuse Over: 1 hr, Route: IV, 1,000, Drug form: INJ, ONCE, Priority: STAT, Dosing Weight 100 kg, Start date: 10/27/18 9:52:00 CDT, Stop da te: 10/27/18 9:52:00 CDT Start Date: 10/27/18 Stop Date: 10/27/18 Status: Completed Xylocaine Viscous 2% mucous membrane solution 15 mL, Route: PO, ONCE, Drug form: SOLN, Start date: 10/27/18 10:08:00 CDT, Stop date: 10/27/18 10:08:00 CDT Notes: (Same as: Xylocaine) Start Date: 10/27/18 Stop Date: 10/27/18 Status: Completed Zantac 75 oral tablet 75 mg=1 tab, PO, BID, # 14 tab, 0 Refill(s) Start Date: 10/27/18 Stop Date: 11/03/18 Status: Ordered Zofran 4 mg, 2 mL, Route: IVP, Drug form: INJ, ONCE, Dosing Weight 100, kg, Priority: S TAT, Start date: 10/27/18 10:33:00 CDT, Stop date: 10/27/18 10:33:00 CDT Notes: (Same as: Zofran) MEDICATION WASTE Product Size: 4 mgProduct Was luisito: ___ mg Start Date: 10/27/18 Stop Date: 10/27/18 Status: Completed Results Most recent to 1 oldest [Reference Range]: Neutrophils # 3.7 K/CMM [1.5-8.1 K/CMM] (10/27/18 8:32 AM) Lymphocytes # 1.7 K/CMM [1.0-5.5 K/CMM] (10/27/18 8:32 AM) Monocytes # [0.0-0.8 0.4 K/CMM K/CMM] (10/27/18 8:32 AM) Eosinophils # 0.1 K/CMM [0.0-0.5 K/CMM] (10/27/18 8:32 AM) Basophils # [0.0-0.2 0.1 K/CMM K/CMM] (10/27/18 8:32 AM) eGFR 95 mL/min/1.73m2 1 *NA* (10/27/18 8:32 AM) A/G Ratio [0.7-1.6] 1.1 (10/27/18 8:32 AM) Albumin Lvl [3.5-5.0 3.7 g/dL g/dL] (10/27/18 8:32 AM) Alk Phos [39-136 102 unit/L unit/L] (10/27/18 8:32 AM) ALT [0-65 unit/L] 38 unit/L (10/27/18 8:32 AM) AGAP [10.0-20.0 14.4 mEq/L mEq/L] (10/27/18 8:32 AM) AST [0-37 unit/L] 19 unit/L (10/27/18 8:32 AM) B/C Ratio [6-25] 14 (10/27/18 8:32 AM) Basophils [0.0-1.0 1.6 % %] *HI* (10/27/18 8:32 AM) BUN [7-22 mg/dL] 11 mg/dL (10/27/18 8:32 AM) Calcium Lvl 8.7 mg/dL [8.5-10.5 mg/dL] (10/27/18 8:32 AM) Chloride Lvl [95-109 111 mEq/L mEq/L] *HI* (10/27/18 8:32 AM) CO2 [24-32 mEq/L] 19 mEq/L *LOW* (10/27/18 8:32 AM) Creatinine Lvl 0.79 mg/dL [0.50-1.40 mg/dL] (10/27/18 8:32 AM) Eosinophils [0.0-4.0 1.5 % %] (10/27/18 8:32 AM) Globulin [2.7-4.2 3.5 g/dL g/dL] (10/27/18 8:32 AM) Glucose Lvl [70-99 103 mg/dL mg/dL] *HI* (10/27/18 8:32 AM) Hct [36.0-48.0 %] 40.4 % (10/27/18 8:32 AM) Hgb [12.0-16.0 g/dL] 13.9 g/dL (10/27/18 8:32 AM) Potassium Lvl 3.4 mEq/L [3.5-5.1 mEq/L] *LOW* (10/27/18 8:32 AM) Lipase Lvl [73-393 157 unit/L unit/L] (10/27/18 8:32 AM) Lymphocytes 28.4 % [20.0-40.0 %] (10/27/18 8:32 AM) MCH [27.0-31.0 pg] 29.2 pg (10/27/18 8:32 AM) MCHC [32.0-36.0 34.4 g/dL g/dL] (10/27/18 8:32 AM) MCV [80.0-98.0 fL] 85.0 fL (10/27/18 8:32 AM) Monocytes [2.0-12.0 5.9 % %] (10/27/18 8:32 AM) MPV [7.4-10.4 fL] 7.4 fL (10/27/18 8:32 AM) Sodium Lvl [135-145 141 mEq/L mEq/L] (10/27/18 8:32 AM) Platelet [133-450 341 K/CMM K/CMM] (10/27/18 8:32 AM) Segs [45.0-75.0 %] 62.6 % (10/27/18 8:32 AM) Total Protein 7.2 g/dL [6.4-8.4 g/dL] (10/27/18 8:32 AM) RBC [4.20-5.40 4.76 M/CMM M/CMM] (10/27/18 8:32 AM) RDW [11.5-14.5 %] 14.3 % (10/27/18 8:32 AM) Bili Total [0.2-1.3 0.8 mg/dL mg/dL] (10/27/18 8:32 AM) UA Bacteria [None Few /HPF Seen /HPF] *NA* (10/27/18 10:22 AM) UA Bili [Negative] Negative *NA* (10/27/18 10:22 AM) UA Blood [Negative] Negative (10/27/18 10:22 AM) UA Color [Yellow] Yellow *NA* (10/27/18 10:22 AM) UA Glucose [Negative Negative mg/dL mg/dL] *NA* (10/27/18 10:22 AM) UA Hyal Cast [0-2 3 /LPF /LPF] *HI* (10/27/18 10:22 AM) UA Ketones [Negative 20 mg/dL mg/dL] *ABN* (10/27/18 10:22 AM) UA Leuk Est Trace [Negative] *ABN* (10/27/18 10:22 AM) UA Mucus [None Seen Few /LPF /LPF] *NA* (10/27/18 10:22 AM) UA Nitrite Negative [Negative] (10/27/18 10:22 AM) UA pH [5.0-8.0] 6.0 (10/27/18 10:22 AM) U Preg [Negative] Negative (10/27/18 10:22 AM) UA Protein [Negative Negative mg/dL mg/dL] (10/27/18 10:22 AM) UA RBC [0-2 /HPF] 4 /HPF *HI* (10/27/18 10:22 AM) UA Spec Grav 1.020 [<=1.030] (10/27/18 10:22 AM) UA Sq Epi [Few /LPF] Many /LPF *ABN* (10/27/18 10:22 AM) UA Turbidity [Clear] Slight *ABN* (10/27/18 10:22 AM) UA Urobilinogen 2.0 mg/dL [0.1-1.0 mg/dL] *HI* (10/27/18 10:22 AM) UA WBC [0-5 /HPF] 10 /HPF *HI* (10/27/18 10:22 AM) WBC [3.7-10.4 K/CMM] 6.0 K/CMM (10/27/18 8:32 AM) 1Result Comment: The eGFR is calculated [...]
--- OUTSIDE RECORDS SUMMARY | 2018-11-10 00:08 | XMS REPORT | Summary of Care ---
Author Author [facility] Organization [facility] Address Unknown Phone Unavailable Encounter BELIA Johnson(YANY) [id number] Date(s): 03/21/18 - 03/21/18 [facility] [address] [place] [address]- Encounter Diagnosis Other chronic postprocedural pain (Final) - 03/26/18 Left lower quadrant pain (Final) - Left upper quadrant pain (Final) - Nausea with vomiting, unspecified (Final) - Malingerer [conscious simulation] (Final) - Post-traumatic stress disorder, unspecified (Final) - Acquired absence of both cervix and uterus (Final) - Acquired absence of other specified parts of digestive tract (Final) - Personal history of nicotine dependence (Final) - Personal history of urinary calculi (Final) - Drug-seeking behavior (Discharge Diagnosis) - 03/21/18 Post-op pain (Discharge Diagnosis) - 03/21/18 Chronic abdominal pain (Discharge Diagnosis) - 03/21/18 Discharge Disposition: Home or Self Care Attending Physician: Danyel Forte MD Referring Physician: Vicki Estrada MD Vital Signs Most recent to 1 2 oldest [Reference Range]: Height 162.56 cm (03/21/18 7:55 AM) Temperature Oral 98.1 DegF 98.1 DegF [96.4-99.1 DegF] (03/21/18 10:49 AM) (03/21/18 7:55 AM) Blood Pressure 123/85 mmHg 135/93 mmHg [90-140/60-90 mmHg] (03/21/18 10:49 AM) (03/21/18 7:55 AM) Respiratory Rate 16 BRMIN 18 BRMIN [14-20 BRMIN] (03/21/18 10:49 AM) (03/21/18 7:55 AM) Peripheral Pulse 71 bpm 111 bpm Rate [60-100 bpm] (03/21/18 10:49 AM) *HI* (03/21/18 7:55 AM) Weight 100 kg (03/21/18 7:55 AM) Body Mass Index 37.84 m2 (03/21/18 7:55 AM) Problem List Condition Effective Dates Status Health Status Informant Kidney Active stone(Confirmed) Ovarian Resolved cyst(Confirmed) Vaginal bleeding Active problem(Confirmed) Vaginal Active delivery(Confirmed) Allergies, Adverse Reactions, Alerts Substance Reaction Severity Status codeine sulfate Active traMADol1 Active 1Puritis Medications ibuprofen 800 mg, Route: PO, Drug form: TAB, ONCE, Dosing Weight 100, kg, Priority: STAT, Start date: 03/21/18 8:40:00 CDT, Stop date: 03/21/18 8:40:00 CDT Start Date: 03/21/18 Stop Date: 03/21/18 Status: Completed morphine Sulfate 4 mg, Route: IVP, Drug form: INJ, ONCE, Dosing Weight 100, kg, Priority: STAT, S tart date: 03/21/18 8:28:00 CDT, Stop date: 03/21/18 8:28:00 CDT Start Date: 03/21/18 Stop Date: 03/21/18 Status: Discontinued Zofran 4 mg, Route: IVP, Drug form: INJ, ONCE, Dosing Weight 100, kg, Priority: STAT, S tart date: 03/21/18 8:28:00 CDT, Stop date: 03/21/18 8:28:00 CDT Start Date: 03/21/18 Stop Date: 03/21/18 Status: Discontinued Zofran ODT 4 mg, Route: PO, Drug form: TABDIS, ONCE, Dosing Weight 100, kg, Priority: STAT, Start date: 03/21/18 8:40:00 CDT, Stop date: 03/21/18 8:40:00 CDT Start Date: 03/21/18 Stop Date: 03/21/18 Status: Completed Results Most recent to 1 oldest [Reference Range]: Neutrophils # 3.6 K/CMM [1.5-8.1 K/CMM] (03/21/18 8:57 AM) Lymphocytes # 1.6 K/CMM [1.0-5.5 K/CMM] (03/21/18 8:57 AM) Monocytes # [0.0-0.8 0.3 K/CMM K/CMM] (03/21/18 8:57 AM) Eosinophils # 0.2 K/CMM [0.0-0.5 K/CMM] (03/21/18 8:57 AM) eGFR 74 mL/min/1.73m2 1 *NA* (03/21/18 8:57 AM) A/G Ratio [0.7-1.6] 0.9 (03/21/18 8:57 AM) Albumin Lvl [3.5-5.0 3.4 g/dL g/dL] *LOW* (03/21/18 8:57 AM) Alk Phos [39-136 109 unit/L unit/L] (03/21/18 8:57 AM) ALT [0-65 unit/L] 27 unit/L (03/21/18 8:57 AM) AGAP [10.0-20.0 12.1 mEq/L mEq/L] (03/21/18 8:57 AM) AST [0-37 unit/L] 16 unit/L (03/21/18 8:57 AM) B/C Ratio [6-25] 16 (03/21/18 8:57 AM) Basophils [0.0-1.0 0.8 % %] (03/21/18 8:57 AM) BUN [7-22 mg/dL] 15 mg/dL (03/21/18 8:57 AM) Calcium Lvl 8.6 mg/dL [8.5-10.5 mg/dL] (03/21/18 8:57 AM) Chloride Lvl [95-109 106 mEq/L mEq/L] (03/21/18 8:57 AM) CO2 [24-32 mEq/L] 29 mEq/L (03/21/18 8:57 AM) Creatinine Lvl 0.96 mg/dL [0.50-1.40 mg/dL] (03/21/18 8:57 AM) Eosinophils [0.0-4.0 3.2 % %] (03/21/18 8:57 AM) Globulin [2.7-4.2 3.7 g/dL g/dL] (03/21/18 8:57 AM) Glucose Lvl [70-99 85 mg/dL mg/dL] (03/21/18 8:57 AM) Hct [36.0-48.0 %] 38.9 % (03/21/18 8:57 AM) Hgb [12.0-16.0 g/dL] 13.2 g/dL (03/21/18 8:57 AM) Potassium Lvl 4.1 mEq/L [3.5-5.1 mEq/L] (03/21/18 8:57 AM) Lipase Lvl [73-393 145 unit/L unit/L] (03/21/18 8:57 AM) Lymphocytes 27.7 % [20.0-40.0 %] (03/21/18 8:57 AM) MCH [27.0-31.0 pg] 29.3 pg (03/21/18 8:57 AM) MCHC [32.0-36.0 33.9 g/dL g/dL] (03/21/18 8:57 AM) MCV [80.0-98.0 fL] 86.5 fL (03/21/18 8:57 AM) Monocytes [2.0-12.0 5.0 % %] (03/21/18 8:57 AM) MPV [7.4-10.4 fL] 7.4 fL (03/21/18 8:57 AM) Sodium Lvl [135-145 143 mEq/L mEq/L] (03/21/18 8:57 AM) Platelet [133-450 289 K/CMM K/CMM] (03/21/18 8:57 AM) Segs [45.0-75.0 %] 63.3 % (03/21/18 8:57 AM) Total Protein 7.1 g/dL [6.4-8.4 g/dL] (03/21/18 8:57 AM) RBC [4.20-5.40 4.50 M/CMM M/CMM] (03/21/18 8:57 AM) RDW [11.5-14.5 %] 14.5 % (03/21/18 8:57 AM) S Preg [Negative] Negative *NA* (03/21/18 8:57 AM) Bili Total [0.2-1.3 0.3 mg/dL mg/dL] (03/21/18 8:57 AM) UA Bacteria [None Occasional /HPF Seen /HPF] *NA* (03/21/18 8:57 AM) UA Bili [Negative] Negative *NA* (03/21/18 8:57 AM) UA Blood [Negative] Negative (03/21/18 8:57 AM) UA Color Ltyellow *NA* (03/21/18 8:57 AM) UA Glucose [Negative Negative mg/dL mg/dL] *NA* (03/21/18 8:57 AM) UA Ketones [Negative Negative mg/dL mg/dL] *NA* (03/21/18 8:57 AM) UA Leuk Est Negative [Negative] (03/21/18 8:57 AM) UA Nitrite Negative [Negative] (03/21/18 8:57 AM) UA pH [5.0-8.0] 6.0 (03/21/18 8:57 AM) UA Protein [Negative Negative mg/dL mg/dL] (03/21/18 8:57 AM) UA RBC [0-2 /HPF] 1 /HPF (03/21/18 8:57 AM) UA Spec Grav 1.011 [<=1.030] (03/21/18 8:57 AM) UA Sq Epi [Few /LPF] Occasional /LPF *NA* (03/21/18 8:57 AM) UA Turbidity [Clear] Clear (03/21/18 8:57 AM) UA Urobilinogen <=1.0 mg/dL [0.1-1.0 mg/dL] *NA* (03/21/18 8:57 AM) UA WBC [0-5 /HPF] 1 /HPF (03/21/18 8:57 AM) WBC [3.7-10.4 K/CMM] 5.7 K/CMM (03/21/18 8:57 AM) 1Result Comment: The eGFR is calculated [...] Reg Smoking Cessation Counseling No entered on: 09/29/18 Assessment and Plan No data available for this section
--- OUTSIDE RECORDS SUMMARY | 2018-11-10 00:08 | XMS REPORT | Summary of Care ---
Author Author [facility] Organization [facility] Address Unknown Phone Unavailable Encounter BELIA Johnson(YANY) [id number] Date(s): 10/25/17 - 10/26/17 [facility] [address] [place], [place], [place] [address]- [phone] Encounter Diagnosis Ovarian cyst, right (Discharge Diagnosis) - 10/26/17 Discharge Disposition: Home or Self Care Attending Physician: Emani Alaniz MD Vital Signs 1 2 3 Most recent to oldest [Reference Range]: 162.56 cm (10/25/17 9:39 PM) Height 98.2 DegF (10/26/17 2:28 AM) 98.4 DegF (10/25/17 11:23 PM) 98.9 DegF (10/25/17 9:39 PM) Temperature Oral [96.4-99.1 DegF] 117/68 mmHg (10/26/17 2:28 AM) 108/63 mmHg (10/26/17 12:45 AM) 123/70 mmHg (10/25/17 11:23 PM) Blood Pressure [90-140/60-90 mmHg] 18 BRMIN (10/26/17 2:28 AM) 18 BRMIN (10/25/17 11:23 PM) 18 BRMIN (10/25/17 9:39 PM) Respiratory Rate [14-20 BRMIN] 75 bpm (10/26/17 2:28 AM) 85 bpm (10/25/17 11:23 PM) 92 bpm (10/25/17 9:39 PM) Peripheral Pulse Rate [60-100 bpm] 102.33 kg (10/25/17 9:39 PM) Weight 38.72 m2 (10/25/17 9:39 PM) Body Mass Index Problem List Condition Effective Dates Status Health Status Informant Kidney Active stone(Confirmed) Ovarian Resolved cyst(Confirmed) Vaginal bleeding Active problem(Confirmed) Vaginal Active delivery(Confirmed) Allergies, Adverse Reactions, Alerts Substance Reaction Severity Status acetaminophen-codeine1 Mild Active NKDA NKDA - No known drug allergies Active traMADol2 Active 1Puritis 2Puritis Medications Bentyl 20 mg, 1 tab, Route: PO, Drug form: TAB, ONCE, Dosing Weight 102.33, kg, Start d ate: 10/26/17 2:15:00 CDT, Stop date: 10/26/17 2:15:00 CDT Notes: (Same as: Bentyl) Start Date: 10/26/17 Stop Date: 10/26/17 Status: Completed Bentyl 20 mg oral tablet 20 mg=1 tab, PO, QID-Before Meals, PRN Abdominal Pain, # 28 tab, 0 Refill(s) Start Date: 10/26/17 Stop Date: 11/02/17 Status: Ordered ketOROLAC 30 mg/mL injectable solution 30 mg, Route: IVP, Drug form: INJ, ONCE, Dosing Weight 102.33, kg, Priority: STA T, Start date: 10/25/17 23:08:00 CDT, Stop date: 10/25/17 23:08:00 CDT Start Date: 10/25/17 Stop Date: 10/25/17 Status: Completed morphine Sulfate 4 mg, 1 mL, Route: IVP, Drug form: SOLN, ONCE, Dosing Weight 102.33, kg, Priorit y: STAT, Start date: 10/26/17 0:32:00 CDT, Stop date: 10/26/17 0:32:00 CDT Notes: (Same as:MORPhine Sulfate) Start Date: 10/26/17 Stop Date: 10/26/17 Status: Completed Motrin 800 mg oral tablet 800 mg=1 tab, PO, Q8H, PRN Pain, Take with food, X 7 day, # 21 tab, 0 Refill(s) Start Date: 10/26/17 Stop Date: 11/02/17 Status: Ordered ondansetron 4 mg, 2 mL, Route: IVP, Drug form: INJ, ONCE, Dosing Weight 100, kg, Priority: S TAT, Start date: 10/25/17 21:40:00 CDT, Stop date: 10/25/17 21:40:00 CDT Notes: (Same as: Zofran) MEDICATION WASTE Product Size: 4 mgProduct Was luisito: ___ mg Start Date: 10/25/17 Stop Date: 10/25/17 Status: Completed Saline Flush 0.9% 10 mL, Route: IVP, Drug Form: INJ, Dosing Weight 100, kg, PRN, PRN Line Flush, S tart date: 10/25/17 21:40:00 CDT, Duration: 30 day, Stop date: 11/24/17 21:39:00 CDT Notes: (Same as: BD Posiflush) Start Date: 10/25/17 Stop Date: 10/26/17 Status: Discontinued Sodium Chloride 0.9% (Bolus) IV 1,000 mL, 1000 ml/hr, Infuse Over: 1 hr, Route: IV, 1,000, Drug form: INJ, ONCE, Priority: STAT, Dosing Weight 100 kg, Start date: 10/25/17 21:40:00 CDT, Stop d ate: 10/25/17 21:40:00 CDT Start Date: 10/25/17 Stop Date: 10/25/17 Status: Completed Zofran 4 mg, 2 mL, Route: IVP, Drug form: INJ, ONCE, Dosing Weight 102.33, kg, Priority : STAT, Start date: 10/25/17 23:13:00 CDT, Stop date: 10/25/17 23:13:00 CDT Notes: (Same as: Zofran) MEDICATION WASTE Product Size: 4 mgProduct Was luisito: ___ mg Start Date: 10/25/17 Stop Date: 10/25/17 Status: Completed Results ELECTROLYTES Most recent to 1 oldest [Reference Range]: Sodium Lvl [135-145 142 mEq/L mEq/L] (10/25/17 9:52 PM) Potassium Lvl 4.0 mEq/L [3.5-5.1 mEq/L] (10/25/17 9:52 PM) Chloride Lvl [95-109 109 mEq/L mEq/L] (10/25/17 9:52 PM) CO2 [24-32 mEq/L] 24 mEq/L (10/25/17 9:52 PM) AGAP [10.0-20.0 13.0 mEq/L mEq/L] (10/25/17 9:52 PM) CHEM PANEL Most recent to 1 oldest [Reference Range]: Creatinine Lvl 0.85 mg/dL [0.50-1.40 mg/dL] (10/25/17 9:52 PM) eGFR 87 mL/min/1.73m2 1 *NA* (10/25/17 9:52 PM) BUN [7-22 mg/dL] 12 mg/dL (10/25/17 9:52 PM) B/C Ratio [6-25] 14 (10/25/17 9:52 PM) Glucose Lvl [70-99 107 mg/dL mg/dL] *HI* (10/25/17 9:52 PM) Total Protein 6.4 g/dL [6.4-8.4 g/dL] (10/25/17 9:52 PM) Albumin Lvl [3.5-5.0 3.3 g/dL g/dL] *LOW* (10/25/17 9:52 PM) Globulin [2.7-4.2 3.1 g/dL g/dL] (10/25/17 9:52 PM) A/G Ratio [0.7-1.6] 1.1 (10/25/17 9:52 PM) Calcium Lvl 9.1 mg/dL [8.5-10.5 mg/dL] (10/25/17 9:52 PM) ALT [0-65 unit/L] 30 unit/L (10/25/17 9:52 PM) AST [0-37 unit/L] 15 unit/L (10/25/17 9:52 PM) Alk Phos [39-136 82 unit/L unit/L] (10/25/17 9:52 PM) Bili Total [0.2-1.3 0.1 mg/dL mg/dL] *LOW* (10/25/17 9:52 PM) Lipase Lvl [73-393 245 unit/L unit/L] (10/25/17 9:52 PM) 1Result Comment: The eGFR is calculated using [...] [Reference Range]: S Preg [Negative] Negative *NA* (10/25/17 9:52 PM) URINE AND STOOL Most recent to 1 oldest [Reference Range]: UA Turbidity [Clear] Clear (10/25/17 9:57 PM) UA Color [Yellow] Yellow *NA* (10/25/17 9:57 PM) UA pH [5.0-8.0] 6.5 (10/25/17 9:57 PM) UA Spec Grav <=1.005 [<=1.030] *NA* (10/25/17 9:57 PM) UA Glucose Negative [Negative] (10/25/17 9:57 PM) UA Blood [Negative] Negative (10/25/17 9:57 PM) UA Ketones Negative [Negative] *NA* (10/25/17 9:57 PM) UA Protein Negative [Negative] (10/25/17 9:57 PM) UA Urobilinogen 0.2 EU/dL [0.1-1.0 EU/dL] (10/25/17 9:57 PM) UA Bili [Negative] Negative *NA* (10/25/17 9:57 PM) UA Leuk Est Negative [Negative] (10/25/17 9:57 PM) UA Nitrite Negative [Negative] (10/25/17 9:57 PM) UA WBC [None Seen] None Seen (10/25/17 9:57 PM) UA RBC [0-2] None Seen (10/25/17 9:57 PM) UA Bacteria [None Occasional /HPF Seen /HPF] (10/25/17 9:57 PM) UA Sq Epi [Few /LPF] Moderate /LPF *ABN* (10/25/17 9:57 PM) UA Mucus [None Seen] None Seen (10/25/17 9:57 PM) HEMATOLOGY Most recent to 1 oldest [Reference Range]: WBC [3.7-10.4 K/CMM] 7.2 K/CMM (10/25/17 9:52 PM) RBC [4.20-5.40 4.36 M/CMM M/CMM] (10/25/17 9:52 PM) Hgb [12.0-16.0 g/dL] 12.5 g/dL (10/25/17 9:52 PM) Hct [36.0-48.0 %] 36.8 % (10/25/17 9:52 PM) MCV [80.0-98.0 fL] 84.4 fL (10/25/17 9:52 PM) MCH [27.0-31.0 pg] 28.7 pg (10/25/17 9:52 PM) MCHC [32.0-36.0 34.0 g/dL g/dL] (10/25/17 9:52 PM) RDW [11.5-14.5 %] 13.8 % (10/25/17 9:52 PM) MPV [7.4-10.4 fL] 8.0 fL (10/25/17 9:52 PM) Platelet [133-450 268 K/CMM K/CMM] (10/25/17 9:52 PM) Segs [45.0-75.0 %] 59.7 % (10/25/17 9:52 PM) Lymphocytes 32.1 % [20.0-40.0 %] (10/25/17 9:52 PM) Monocytes [2.0-12.0 6.1 % %] (10/25/17 9:52 PM) Eosinophils [0.0-4.0 1.6 % %] (10/25/17 9:52 PM) Basophils [0.0-1.0 0.5 % %] (10/25/17 9:52 PM) Segs-Bands # 4.4 K/CMM [1.5-8.1 K/CMM] (10/25/17 9:52 PM) Lymphocytes # 2.3 K/CMM [1.0-5.5 K/CMM] (10/25/17 9:52 PM) Monocytes # [0.0-0.8 0.4 K/CMM K/CMM] (10/25/17 9:52 PM) Eosinophils # 0.1 K/CMM [0.0-0.5 K/CMM] (10/25/17 9:52 PM) Immunizations No data available for this section Procedures Procedure Date Related Diagnosis Body Site Status Cholecystectomy Completed Cholecystectomy Completed Cholecystectomy Completed Hysterectomy Completed Hysterectomy Completed Insertion of renal artery stent Completed Lithotripsy Completed Lithotripsy of kidney Completed Tubal ligation Completed Social History Social History Type Response Substance Abuse Use: None. Alcohol Past, Type Beer. Smoking Status Former smoker; Previous treatment: None; Exposure to Tobacco Smoke None; Cigarette Smoking Last 365 Days No; Reg Smoking Cessation Counseling No entered on: 10/25/17 Assessment and Plan No data available for this section
--- OUTSIDE RECORDS SUMMARY | 2018-11-10 00:08 | XMS REPORT | Summary of Care ---
Author Author [facility] Organization [facility] Address Unknown Phone Unavailable Encounter BELIA Johnson(YANY) [id number] Date(s): 09/29/18 - 09/29/18 [facility] [address] [place] [address]- Encounter Diagnosis Nephrolithiasis (Discharge Diagnosis) - 09/29/18 Discharge Disposition: Home or Self Care Attending Physician: Sherice Mason DO Vital Signs Most recent to 1 2 oldest [Reference Range]: Height 162.56 cm (09/29/18 7:51 AM) Temperature Oral 98.3 DegF 98.2 DegF [96.4-99.1 DegF] (09/29/18 11:58 AM) (09/29/18 7:51 AM) Blood Pressure 115/65 mmHg 124/74 mmHg [90-140/60-90 mmHg] (09/29/18 11:58 AM) (09/29/18 7:51 AM) Respiratory Rate 18 BRMIN 18 BRMIN [14-20 BRMIN] (09/29/18 11:58 AM) (09/29/18 7:51 AM) Peripheral Pulse 80 bpm 105 bpm Rate [60-100 bpm] (09/29/18 11:58 AM) *HI* (09/29/18 7:51 AM) Weight 100 kg (09/29/18 7:51 AM) Body Mass Index 37.84 m2 (09/29/18 7:51 AM) Problem List Condition Effective Dates Status Health Status Informant Kidney Active stone(Confirmed) Ovarian Resolved cyst(Confirmed) Vaginal bleeding Active problem(Confirmed) Vaginal Active delivery(Confirmed) Allergies, Adverse Reactions, Alerts Substance Reaction Severity Status codeine sulfate Active traMADol1 Active 1Puritis Medications Flomax 0.4 mg oral capsule 0.4 mg=1 cap, PO, Daily, # 7 cap, 0 Refill(s) Start Date: 09/29/18 Stop Date: 10/06/18 Status: Ordered ketOROLAC 15 mg, Route: IVP, Drug form: INJ, ONCE, Dosing Weight 100, kg, Priority: STAT, Start date: 09/29/18 10:22:00 CDT, Stop date: 09/29/18 10:22:00 CDT Start Date: 09/29/18 Stop Date: 09/29/18 Status: Completed morphine Sulfate 4 mg, Route: IVP, ONCE, Dosing Weight 100, kg, Priority: STAT, Start date: 09/29 8:36:00 CDT, Stop date: 09/29/18 8:36:00 CDT Start Date: 09/29/18 Stop Date: 09/29/18 Status: Completed ondansetron 4 mg, Route: IVP, Drug form: INJ, ONCE, Dosing Weight 100, kg, Priority: STAT, S tart date: 09/29/18 8:36:00 CDT, Stop date: 09/29/18 8:36:00 CDT Start Date: 09/29/18 Stop Date: 09/29/18 Status: Completed promethazine 12.5 mg, Route: IM, ONCE, Dosing Weight 100, kg, Priority: STAT, Start date: 06/19 10:22:00 CDT, Stop date: 09/29/18 10:22:00 CDT Start Date: 09/29/18 Stop Date: 09/29/18 Status: Completed Sodium Chloride 0.9% (Bolus) IV 1,000 mL, Infuse Over: 1 hr, Route: IV, ONCE, Priority: STAT, Dosing Weight 100 kg, Start date: 09/29/18 8:36:00 CDT, Stop date: 09/29/18 8:36:00 CDT Start Date: 09/29/18 Stop Date: 09/29/18 Status: Completed Results Most recent to 1 oldest [Reference Range]: Neutrophils # 3.5 K/CMM [1.5-8.1 K/CMM] (09/29/18 8:57 AM) Lymphocytes # 1.5 K/CMM [1.0-5.5 K/CMM] (09/29/18 8:57 AM) Monocytes # [0.0-0.8 0.3 K/CMM K/CMM] (09/29/18 8:57 AM) Eosinophils # 0.1 K/CMM [0.0-0.5 K/CMM] (09/29/18 8:57 AM) eGFR 72 mL/min/1.73m2 1 *NA* (09/29/18 8:57 AM) A/G Ratio [0.7-1.6] 1.1 (09/29/18 8:57 AM) Albumin Lvl [3.5-5.0 3.6 g/dL g/dL] (09/29/18 8:57 AM) Alk Phos [39-136 94 unit/L unit/L] (09/29/18 8:57 AM) ALT [0-65 unit/L] 22 unit/L (09/29/18 8:57 AM) AGAP [10.0-20.0 13.7 mEq/L mEq/L] (09/29/18 8:57 AM) AST [0-37 unit/L] 9 unit/L (09/29/18 8:57 AM) B/C Ratio [6-25] 14 (09/29/18 8:57 AM) Basophils [0.0-1.0 0.9 % %] (09/29/18 8:57 AM) BUN [7-22 mg/dL] 14 mg/dL (09/29/18 8:57 AM) Calcium Lvl 8.8 mg/dL [8.5-10.5 mg/dL] (09/29/18 8:57 AM) Chloride Lvl [95-109 109 mEq/L mEq/L] (09/29/18 8:57 AM) CO2 [24-32 mEq/L] 22 mEq/L *LOW* (09/29/18 8:57 AM) Creatinine Lvl 0.99 mg/dL [0.50-1.40 mg/dL] (09/29/18 8:57 AM) Eosinophils [0.0-4.0 1.9 % %] (09/29/18 8:57 AM) Globulin [2.7-4.2 3.2 g/dL g/dL] (09/29/18 8:57 AM) Glucose Lvl [70-99 111 mg/dL mg/dL] *HI* (09/29/18 8:57 AM) Hct [36.0-48.0 %] 38.1 % (09/29/18 8:57 AM) Hgb [12.0-16.0 g/dL] 13.2 g/dL (09/29/18 8:57 AM) Potassium Lvl 3.7 mEq/L [3.5-5.1 mEq/L] (09/29/18 8:57 AM) Lipase Lvl [73-393 129 unit/L unit/L] (09/29/18 8:57 AM) Lymphocytes 27.2 % [20.0-40.0 %] (09/29/18 8:57 AM) MCH [27.0-31.0 pg] 29.6 pg (09/29/18 8:57 AM) MCHC [32.0-36.0 34.6 g/dL g/dL] (09/29/18 8:57 AM) MCV [80.0-98.0 fL] 85.6 fL (09/29/18 8:57 AM) Monocytes [2.0-12.0 4.9 % %] (09/29/18 8:57 AM) MPV [7.4-10.4 fL] 7.5 fL (09/29/18 8:57 AM) Sodium Lvl [135-145 141 mEq/L mEq/L] (09/29/18 8:57 AM) Platelet [133-450 260 K/CMM K/CMM] (09/29/18 8:57 AM) Segs [45.0-75.0 %] 65.1 % (09/29/18 8:57 AM) Total Protein 6.8 g/dL [6.4-8.4 g/dL] (09/29/18 8:57 AM) RBC [4.20-5.40 4.45 M/CMM M/CMM] (09/29/18 8:57 AM) RDW [11.5-14.5 %] 14.4 % (09/29/18 8:57 AM) Bili Total [0.2-1.3 0.3 mg/dL mg/dL] (09/29/18 8:57 AM) UA Bacteria [None Many /HPF Seen /HPF] *ABN* (09/29/18 8:57 AM) UA Bili [Negative] Negative *NA* (09/29/18 8:57 AM) UA Blood [Negative] Negative (09/29/18 8:57 AM) UA Color Ltyellow *NA* (09/29/18 8:57 AM) UA Glucose [Negative Negative mg/dL mg/dL] *NA* (09/29/18 8:57 AM) UA Ketones [Negative Negative mg/dL mg/dL] *NA* (09/29/18 8:57 AM) UA Leuk Est Negative [Negative] (09/29/18 8:57 AM) UA Nitrite Negative [Negative] (09/29/18 8:57 AM) UA pH [5.0-8.0] 5.0 (09/29/18 8:57 AM) UA Protein [Negative Negative mg/dL mg/dL] (09/29/18 8:57 AM) UA RBC [0-2 /HPF] <1 /HPF (09/29/18 8:57 AM) UA Spec Grav 1.010 [<=1.030] (09/29/18 8:57 AM) UA Sq Epi [Few /LPF] Few /LPF *NA* (09/29/18 8:57 AM) UA Turbidity [Clear] Slight *ABN* (09/29/18 8:57 AM) UA Urobilinogen <=1.0 mg/dL [0.1-1.0 mg/dL] *NA* (09/29/18 8:57 AM) UA WBC [0-5 /HPF] 1 /HPF (09/29/18 8:57 AM) WBC [3.7-10.4 K/CMM] 5.4 K/CMM (09/29/18 8:57 AM) 1Result Comment: The eGFR is [...]
--- OUTSIDE RECORDS SUMMARY | 2018-11-10 00:08 | XMS REPORT | Summary of Care ---
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) - Other terminal worker (current) drug therapy (Final) - Personal history of urinary calculi (Final) - Discharge Disposition: Home or Self Care Attending Physician: Danyel Forte MD Vital Signs Most recent to 1 2 oldest [Reference Range]: Temperature Oral 97.9 DegF 97.8 DegF [96.4-99.1 DegF] (03/18/18 11:54 AM) (03/18/18 8:03 AM) Blood Pressure 141/84 mmHg 120/80 mmHg [90-140/60-90 mmHg] *HI* (03/18/18 8:03 AM) (03/18/18 11:54 AM) Respiratory Rate 18 BRMIN 18 BRMIN [14-20 BRMIN] (03/18/18 11:54 AM) (03/18/18 8:03 AM) Peripheral Pulse 76 bpm 105 bpm Rate [60-100 bpm] (03/18/18 11:54 AM) *HI* (03/18/18 8:03 AM) Problem List Condition Effective Dates Status Health Status Informant Kidney Active stone(Confirmed) Ovarian Resolved cyst(Confirmed) Vaginal bleeding Active problem(Confirmed) Vaginal Active delivery(Confirmed) Allergies, Adverse Reactions, Alerts Substance Reaction Severity Status codeine sulfate Active traMADol1 Active 1Puritis Medications morphine Sulfate 4 mg, 1 mL, Route: IVP, Drug form: SOLN, ONCE, Dosing Weight 104.091, kg, Priori ty: STAT, Start date: 03/18/18 8:47:00 CDT, Stop date: 03/18/18 8:47:00 CDT Notes: (Same as:MORPhine Sulfate) Start Date: 03/18/18 Stop Date: 03/18/18 Status: Completed morphine Sulfate 4 mg, Route: IVP, ONCE, Dosing Weight 104.091, kg, Priority: STAT, Start date: 1 10:20:00 CDT, Stop date: 03/18/18 10:20:00 CDT Start Date: 03/18/18 Stop Date: 03/18/18 Status: Completed ondansetron 4 mg, 2 mL, Route: IVP, Drug form: INJ, ONCE, Dosing Weight 104.091, kg, Priorit y: STAT, Start date: 03/18/18 8:47:00 CDT, Stop date: 03/18/18 8:47:00 CDT Notes: (Same as: Zofran) MEDICATION WASTE Product Size: 4 mgProduct Was luisito: ___ mg Start Date: 03/18/18 Stop Date: 03/18/18 Status: Completed Sodium Chloride 0.9% (Bolus) IV 1,000 mL, 1000 ml/hr, Infuse Over: 1 hr, Route: IV, 1,000, Drug form: INJ, ONCE, Priority: STAT, Dosing Weight 104.091 kg, Start date: 03/18/18 8:47:00 CDT, Stop date: 03/18/18 8:47:00 CDT Start Date: 03/18/18 Stop Date: 03/18/18 Status: Completed Zofran ODT 4 mg oral tablet, disintegrating 4 mg=1 tab, PO, BID, PRN Nausea and Vomiting, Dissolve tab under tongue, # 6 tab , 0 Refill(s) Start Date: 03/18/18 Stop Date: 05/06/18 Status: Completed Results Most recent to 1 oldest [Reference Range]: Neutrophils # 3.4 K/CMM [1.5-8.1 K/CMM] (03/18/18 9:01 AM) Lymphocytes # 1.6 K/CMM [1.0-5.5 K/CMM] (03/18/18 9:01 AM) Monocytes # [0.0-0.8 0.2 K/CMM K/CMM] (03/18/18 9:01 AM) Eosinophils # 0.2 K/CMM [0.0-0.5 K/CMM] (03/18/18 9:01 AM) Basophils # [0.0-0.2 0.1 K/CMM K/CMM] (03/18/18 9:01 AM) eGFR 80 mL/min/1.73m2 1 *NA* (03/18/18 AM) A/G Ratio [0.7-1.6] 0.9 (03/18/18 9: AM) Albumin Lvl [3.5-5.0 3.0 g/dL g/dL] *LOW* (03/18/18 9: AM) Alk Phos [39-136 102 unit/L unit/L] (03/18/18 9: AM) ALT [0-65 unit/L] 26 unit/L (03/18/18 9: AM) AGAP [10.0-20.0 13.9 mEq/L mEq/L] (03/18/18 9:01 AM) AST [0-37 unit/L] 17 unit/L (03/18/18 9:01 AM) B/C Ratio [6-25] 19 (03/18/18 9: AM) Basophils [0.0-1.0 1.4 % %] *HI* (03/18/18 9:01 AM) BUN [7-22 mg/dL] 17 mg/dL (03/18/18 9:01 AM) Calcium Lvl 7.7 mg/dL [8.5-10.5 mg/dL] *LOW* (03/18/18 9:01 AM) Chloride Lvl [95-109 111 mEq/L mEq/L] *HI* (03/18/18 9:01 AM) CO2 [24-32 mEq/L] 23 mEq/L *LOW* (03/18/18 9:01 AM) Creatinine Lvl 0.91 mg/dL [0.50-1.40 mg/dL] (03/18/18: AM) Eosinophils [0.0-4.0 3.9 % %] (03/18/18 AM) Globulin [2.7-4.2 3.3 g/dL g/dL] (03/18/18: AM) Glucose Lvl [70-99 101 mg/dL mg/dL] *HI* (03/18/18 AM) Hct [36.0-48.0 %] 38.9 % (03/18/18 AM) Hgb [12.0-16.0 g/dL] 13.2 g/dL (03/18/18 AM) Potassium Lvl 3.9 mEq/L [3.5-5.1 mEq/L] (03/18/18: AM) Lipase Lvl [73-393 159 unit/L unit/L] (03/18/18 AM) Lymphocytes 28.6 % [20.0-40.0 %] (03/18/18 AM) MCH [27.0-31.0 pg] 29.8 pg (03/18/18: AM) MCHC [32.0-36.0 34.1 g/dL g/dL] (03/18/18 AM) MCV [80.0-98.0 fL] 87.6 fL (03/18/18: AM) Magnesium Lvl 2.1 mg/dL [1.8-2.4 mg/dL] (03/18/18 AM) Monocytes [2.0-12.0 4.2 % %] (03/18/18 AM) MPV [7.4-10.4 fL] 7.4 fL (03/18/18 AM) Sodium Lvl [135-145 144 mEq/L mEq/L] (03/18/18 AM) Platelet [133-450 291 K/CMM K/CMM] (03/18/18 AM) Segs [45.0-75.0 %] 61.9 % (10/18/18 9:01 AM) Total Protein 6.3 g/dL [6.4-8.4 g/dL] *LOW* (03/18/18 9:01 AM) RBC [4.20-5.40 4.44 M/CMM M/CMM] (03/18/18 9:01 AM) RDW [11.5-14.5 %] 15.2 % *HI* (03/18/18 9:01 AM) S Preg [Negative] Negative *NA* (03/18/18 9:01 AM) Bili Total [0.2-1.3 0.1 mg/dL mg/dL] *LOW* (03/18/18 9:01 AM) UA Bacteria [None Occasional /HPF Seen /HPF] *NA* (03/18/18 10:13 AM) UA Bili [Negative] Negative *NA* (03/18/18 10:13 AM) UA Blood [Negative] Negative (03/18/18 10:13 AM) UA Color Ltyellow *NA* (03/18/18 10:13 AM) UA Glucose [Negative Negative mg/dL mg/dL] *NA* (03/18/18 10:13 AM) UA Ketones [Negative Negative mg/dL mg/dL] *NA* (03/18/18 10:13 AM) UA Leuk Est Negative [Negative] (03/18/18 10:13 AM) UA Mucus [None Seen Few /LPF /LPF] *NA* (03/18/18 10:13 AM) UA Nitrite Negative [Negative] (03/18/18 10:13 AM) UA pH [5.0-8.0] 6.0 (03/18/18 10:13 AM) UA Protein [Negative Negative mg/dL mg/dL] (03/18/18 10:13 AM) UA RBC [0-2 /HPF] 1 /HPF (03/18/18 10:13 AM) UA Spec Grav 1.010 [<=1.030] (03/18/18 10:13 AM) UA Sq Epi [Few /LPF] Moderate /LPF *ABN* (03/18/18 10:13 AM) UA Turbidity [Clear] Clear (03/18/18 10:13 AM) UA Urobilinogen <=1.0 mg/dL [0.1-1.0 mg/dL] *NA* (03/18/18 10:13 AM) UA WBC [0-5 /HPF] 3 /HPF (03/18/18 10:13 AM) WBC [3.7-10.4 K/CMM] 5.4 K/CMM (03/18/18 9:01 AM) 1Result Comment: The eGFR is calculated [...]
--- OUTSIDE RECORDS SUMMARY | 2018-11-10 00:08 | XMS REPORT | Summary of Care ---
Author Author [facility] Organization [facility] Address Unknown Phone Unavailable Encounter BELIA Johnson(YANY) [id number] Date(s): 08/30/18 - 08/30/18 [facility] [address] [place] [address]- Discharge Disposition: Home or Self Care Attending Physician: Danyel Forte MD Vital Signs Most recent to 1 oldest [Reference Range]: Height 162.56 cm (08/30/18 10:10 AM) Temperature Oral 97.9 DegF [96.4-99.1 DegF] (08/30/18 10:10 AM) Blood Pressure 118/83 mmHg [90-140/60-90 mmHg] (08/30/18 10:10 AM) Respiratory Rate 18 BRMIN [14-20 BRMIN] (08/30/18 10:10 AM) Peripheral Pulse 82 bpm Rate [60-100 bpm] (08/30/18 10:10 AM) Weight 100 kg (08/30/18 10:10 AM) Body Mass Index 37.84 m2 (08/30/18 10:10 AM) Problem List Condition Effective Dates Status Health Status Informant Kidney Active stone(Confirmed) Ovarian Resolved cyst(Confirmed) Vaginal bleeding Active problem(Confirmed) Vaginal Active delivery(Confirmed) Allergies, Adverse Reactions, Alerts Substance Reaction Severity Status codeine sulfate Active traMADol1 Active 1Puritis Medications No data available for this section Results ELECTROLYTES Most recent to 1 oldest [Reference Range]: Sodium Lvl [135-145 136 mEq/L mEq/L] (08/30/18 10:35 AM) Potassium Lvl 4.1 mEq/L [3.5-5.1 mEq/L] (08/30/18 10:35 AM) Chloride Lvl [95-109 107 mEq/L mEq/L] (08/30/18 10:35 AM) CO2 [24-32 mEq/L] 28 mEq/L (08/30/18 10:35 AM) AGAP [10.0-20.0 5.1 mEq/L mEq/L] *LOW* (08/30/18 10:35 AM) CHEM PANEL Most recent to 1 oldest [Reference Range]: Creatinine Lvl 1.00 mg/dL [0.50-1.40 mg/dL] (08/30/18 10:35 AM) eGFR 71 mL/min/1.73m2 1 *NA* (08/30/18 10:35 AM) BUN [7-22 mg/dL] 17 mg/dL (08/30/18 10:35 AM) B/C Ratio [6-25] 17 (08/30/18 10:35 AM) Glucose Lvl [70-99 82 mg/dL mg/dL] (08/30/18 10:35 AM) Total Protein 6.8 g/dL [6.4-8.4 g/dL] (08/30/18 10:35 AM) Albumin Lvl [3.5-5.0 3.6 g/dL g/dL] (08/30/18 10:35 AM) Globulin [2.7-4.2 3.2 g/dL g/dL] (08/30/18 10:35 AM) A/G Ratio [0.7-1.6] 1.1 (08/30/18 10:35 AM) Calcium Lvl 8.5 mg/dL [8.5-10.5 mg/dL] (08/30/18 10:35 AM) ALT [0-65 unit/L] 28 unit/L (08/30/18 10:35 AM) AST [0-37 unit/L] 17 unit/L (08/30/18 10:35 AM) Alk Phos [39-136 96 unit/L unit/L] (08/30/18 10:35 AM) Bili Total [0.2-1.3 0.2 mg/dL mg/dL] (08/30/18 10:35 AM) 1Result Comment: The eGFR is calculated [...] Range]: Total CK [12-191 72 unit/L unit/L] (08/30/18 10:35 AM) CK MB [0.5-3.6 <1.0 ng/mL ng/mL] (08/30/18 10:35 AM) CK MB Index <1.4 [0.0-2.5] (08/30/18 10:35 AM) Troponin-I <0.02 ng/mL [0.00-0.40 ng/mL] (08/30/18 10:35 AM) ENDOCRINOLOGY Most recent to 1 oldest [Reference Range]: hCG Tot <1 mIU/mL *NA* (08/30/18 10:35 AM) HEMATOLOGY Most recent to 1 oldest [Reference Range]: WBC [3.7-10.4 K/CMM] 5.6 K/CMM (08/30/18 10:35 AM) RBC [4.20-5.40 4.37 M/CMM M/CMM] (08/30/18 10:35 AM) Hgb [12.0-16.0 g/dL] 12.9 g/dL (08/30/18 10:35 AM) Hct [36.0-48.0 %] 37.9 % (08/30/18 10:35 AM) MCV [80.0-98.0 fL] 86.7 fL (08/30/18 10:35 AM) MCH [27.0-31.0 pg] 29.5 pg (08/30/18 10:35 AM) MCHC [32.0-36.0 34.1 g/dL g/dL] (08/30/18 10:35 AM) RDW [11.5-14.5 %] 14.8 % *HI* (08/30/18 10:35 AM) MPV [7.4-10.4 fL] 7.5 fL (08/30/18 10:35 AM) Platelet [133-450 298 K/CMM K/CMM] (08/30/18 10:35 AM) Segs [45.0-75.0 %] 62.7 % (08/30/18 10:35 AM) Lymphocytes 29.3 % [20.0-40.0 %] (08/30/18 10:35 AM) Monocytes [2.0-12.0 4.8 % %] (08/30/18 10:35 AM) Eosinophils [0.0-4.0 2.0 % %] (08/30/18 10:35 AM) Basophils [0.0-1.0 1.2 % %] *HI* (08/30/18 10:35 AM) Neutrophils # 3.5 K/CMM [1.5-8.1 K/CMM] (08/30/18 10:35 AM) Lymphocytes # 1.6 K/CMM [1.0-5.5 K/CMM] (08/30/18 10:35 AM) Monocytes # [0.0-0.8 0.3 K/CMM K/CMM] (08/30/18 10:35 AM) Eosinophils # 0.1 K/CMM [0.0-0.5 K/CMM] (08/30/18 10:35 AM) Basophils # [0.0-0.2 0.1 K/CMM K/CMM] (08/30/18 10:35 AM) Immunizations No data available for this [...]
--- OUTSIDE RECORDS SUMMARY | 2018-11-10 00:08 | XMS REPORT | Summary of Care ---
Author Author [facility] Organization [facility] Address Unknown Phone Unavailable Encounter BELIA Johnson(YANY) [id number] Date(s): 02/14/18 - 02/14/18 [facility] [address] [place] [address]- Encounter Diagnosis Kidney stones (Discharge Diagnosis) - 02/14/18 Abdominal pain, acute (Discharge Diagnosis) - 02/14/18 Acute diarrhea (Discharge Diagnosis) - 02/14/18 Diarrhea, unspecified (Final) - 02/19/18 Calculus of kidney (Final) - Discharge Disposition: Home or Self Care Attending Physician: Martinez Babcock MD Vital Signs 1 2 3 Most recent to oldest [Reference Range]: 162.56 cm (02/14/18 6:54 AM) Height 99.1 DegF (02/14/18 6:54 AM) Temperature Oral [96.4-99.1 DegF] 141/82 mmHg *HI* (02/14/18 9:21 AM) 118/75 mmHg (02/14/18 7:30 AM) 115/68 mmHg (02/14/18 6:54 AM) Blood Pressure [90-140/60-90 mmHg] 26 BRMIN *HI* (02/14/18 9:21 AM) 22 BRMIN *HI* (02/14/18 7:30 AM) 16 BRMIN (02/14/18 6:54 AM) Respiratory Rate [14-20 BRMIN] 95 bpm (02/14/18 6:54 AM) Peripheral Pulse Rate [60-100 bpm] 100 kg (02/14/18 6:54 AM) Weight 37.84 m2 (02/14/18 6:54 AM) Body Mass Index Problem List Condition Effective Dates Status Health Status Informant Kidney Active stone(Confirmed) Ovarian Resolved cyst(Confirmed) Vaginal bleeding Active problem(Confirmed) Vaginal Active delivery(Confirmed) Allergies, Adverse Reactions, Alerts Substance Reaction Severity Status codeine sulfate Active traMADol1 Active 1Puritis Medications GI cocktail (aluminum hydroxide/magnesium hydroxide/lidocaine/simethicone) 30 mL, Route: PO, Drug Form: SUSP, Dosing Weight 100, kg, ONCE, STAT, Start date : 02/14/18 10:27:00 CDT, Stop date: 02/14/18 10:27:00 CDT Notes: G.I. Cocktail - aluminum hydroxide/magnesium hydroxide/lidocaine/simethic one Start Date: 02/14/18 Stop Date: 02/14/18 Status: Completed morphine Sulfate 4 mg, 1 mL, Route: IVP, Drug form: SOLN, ONCE, Dosing Weight 100, kg, Priority: STAT, Start date: 02/14/18 7:13:00 CDT, Stop date: 02/14/18 7:13:00 CDT Notes: (Same as:MORPhine Sulfate) Start Date: 02/14/18 Stop Date: 02/14/18 Status: Completed omeprazole 20 mg oral delayed release capsule 20 mg=1 cap, PO, Daily, # 30 cap, 0 Refill(s) Start Date: 02/14/18 Stop Date: 05/06/18 Status: Completed pantoprazole 40 mg, Route: IVP, Drug form: INJ, ONCE, Dosing Weight 100, kg, For IV push radha nstitute with 10 ml 0.9% sodium chloride and push over at least 3 minutes, Prior ity: STAT, Start date: 02/14/18 7:13:00 CDT, Stop date: 02/14/18 7:13:00 CDT Notes: For IV push reconstitute with 10 ml 0.9% sodium chloride and push over 2 minutes. (Same as: Protonix) Start Date: 02/14/18 Stop Date: 02/14/18 Status: Completed Saline Flush 0.9% 10 mL, Route: IVP, Drug Form: INJ, Dosing Weight 100, kg, PRN, PRN Line Flush, S tart date: 02/14/18 7:13:00 CDT, Duration: 30 day, Stop date: 03/16/18 7:12:00 C DT Notes: Same as: BD Posiflush Sterile Start Date: 02/14/18 Stop Date: 02/14/18 Status: Discontinued Sodium Chloride 0.9% (Bolus) IV 1,000 mL, 1000 ml/hr, Infuse Over: 1 hr, Route: IV, 1,000, Drug form: INJ, ONCE, Priority: STAT, Dosing Weight 100 kg, Start date: 02/14/18 7:13:00 CDT, Stop da te: 02/14/18 7:13:00 CDT Start Date: 02/14/18 Stop Date: 02/14/18 Status: Completed Zofran ODT 4 mg, 1 tab, Route: PO, Drug form: TABDIS, ONCE, Dosing Weight 100, kg, Priority : STAT, Start date: 02/14/18 7:13:00 CDT, Stop date: 02/14/18 7:13:00 CDT Notes: (Same as: Zofran ODT) Start Date: 02/14/18 Stop Date: 02/14/18 Status: Completed Zofran ODT 4 mg oral tablet, disintegrating 4 mg=1 tab, PO, BID, PRN Nausea and Vomiting, Dissolve tab under tongue, # 20 ta b, 0 Refill(s) Start Date: 02/14/18 Stop Date: 05/06/18 Status: Completed Results ELECTROLYTES Most recent to 1 oldest [Reference Range]: Sodium Lvl [135-145 141 mEq/L mEq/L] (02/14/18 7:58 AM) Potassium Lvl 4.3 mEq/L [3.5-5.1 mEq/L] (02/14/18 7:58 AM) Chloride Lvl [95-109 109 mEq/L mEq/L] (02/14/18 7:58 AM) CO2 [24-32 mEq/L] 22 mEq/L *LOW* (02/14/18 7:58 AM) AGAP [10.0-20.0 14.3 mEq/L mEq/L] (02/14/18 7:58 AM) CHEM PANEL Most recent to 1 oldest [Reference Range]: Creatinine Lvl 1.01 mg/dL [0.50-1.40 mg/dL] (02/14/18 7:58 AM) eGFR 70 mL/min/1.73m2 1 *NA* (02/14/18 7:58 AM) BUN [7-22 mg/dL] 13 mg/dL (02/14/18 7:58 AM) B/C Ratio [6-25] 13 (02/14/18 7:58 AM) Glucose Lvl [70-99 85 mg/dL mg/dL] (02/14/18 7:58 AM) Total Protein 6.7 g/dL [6.4-8.4 g/dL] (02/14/18 7:58 AM) Albumin Lvl [3.5-5.0 3.1 g/dL g/dL] *LOW* (02/14/18 7:58 AM) Globulin [2.7-4.2 3.6 g/dL g/dL] (02/14/18 7:58 AM) A/G Ratio [0.7-1.6] 0.9 (02/14/18 7:58 AM) Calcium Lvl 8.2 mg/dL [8.5-10.5 mg/dL] *LOW* (02/14/18 7:58 AM) ALT [0-65 unit/L] 20 unit/L (02/14/18 7:58 AM) AST [0-37 unit/L] 14 unit/L (02/14/18 7:58 AM) Alk Phos [39-136 81 unit/L unit/L] (02/14/18 7:58 AM) Bili Total [0.2-1.3 0.4 mg/dL mg/dL] (02/14/18 7:58 AM) Amylase Lvl [25-115 85 unit/L unit/L] (02/14/18 7:58 AM) Lipase Lvl [73-393 187 unit/L unit/L] (02/14/18 7:58 AM) 1Result Comment: The eGFR is calculated [...] Most recent to 1 oldest [Reference Range]: Troponin-I <0.02 ng/mL [0.00-0.40 ng/mL] (02/14/18 7:58 AM) URINE AND STOOL Most recent to 1 oldest [Reference Range]: UA Turbidity [Clear] Slight *ABN* (02/14/18 10:08 AM) UA Color Ltyellow *NA* (02/14/18 10:08 AM) UA pH [5.0-8.0] 6.0 (02/14/18 10:08 AM) UA Spec Grav 1.014 [<=1.030] (02/14/18 10:08 AM) UA Glucose [Negative Negative mg/dL mg/dL] *NA* (02/14/18 10:08 AM) UA Blood [Negative] Negative (02/14/18 10:08 AM) UA Ketones [Negative Negative mg/dL mg/dL] *NA* (02/14/18 10:08 AM) UA Protein [Negative Negative mg/dL mg/dL] (02/14/18 10:08 AM) UA Urobilinogen <=1.0 mg/dL [0.1-1.0 mg/dL] *NA* (02/14/18 10:08 AM) UA Bili [Negative] Negative *NA* (02/14/18 10:08 AM) UA Leuk Est Negative [Negative] (02/14/18 10:08 AM) UA Nitrite Negative [Negative] (02/14/18 10:08 AM) UA WBC [0-5 /HPF] 2 /HPF (02/14/18 10:08 AM) UA RBC [0-2 /HPF] 5 /HPF *HI* (02/14/18 10:08 AM) UA Bacteria [None Occasional /HPF Seen /HPF] *NA* (02/14/18 10:08 AM) UA Sq Epi [Few /LPF] Moderate /LPF *ABN* (02/14/18 10:08 AM) UA Mucus [None Seen Few /LPF /LPF] *NA* (02/14/18 10:08 AM) HEMATOLOGY Most recent to 1 oldest [Reference Range]: WBC [3.7-10.4 K/CMM] 6.4 K/CMM (02/14/18 7:58 AM) RBC [4.20-5.40 4.37 M/CMM M/CMM] (02/14/18 7:58 AM) Hgb [12.0-16.0 g/dL] 13.1 g/dL (02/14/18 7:58 AM) Hct [36.0-48.0 %] 38.2 % (02/14/18 7:58 AM) MCV [80.0-98.0 fL] 87.5 fL (02/14/18 7:58 AM) MCH [27.0-31.0 pg] 30.0 pg (02/14/18 7:58 AM) MCHC [32.0-36.0 34.3 g/dL g/dL] (02/14/18 7:58 AM) RDW [11.5-14.5 %] 14.8 % *HI* (02/14/18 7:58 AM) MPV [7.4-10.4 fL] 7.5 fL (02/14/18 7:58 AM) Platelet [133-450 264 K/CMM K/CMM] (02/14/18 7:58 AM) Segs [45.0-75.0 %] 70.7 % (02/14/18 7:58 AM) Lymphocytes 20.4 % [20.0-40.0 %] (02/14/18 7:58 AM) Monocytes [2.0-12.0 6.2 % %] (02/14/18 7:58 AM) Eosinophils [0.0-4.0 1.8 % %] (02/14/18 7:58 AM) Basophils [0.0-1.0 0.9 % %] (02/14/18 7:58 AM) Neutrophils # 4.5 K/CMM [1.5-8.1 K/CMM] (02/14/18 7:58 AM) Lymphocytes # 1.3 K/CMM [1.0-5.5 K/CMM] (02/14/18 7:58 AM) Monocytes # [0.0-0.8 0.4 K/CMM K/CMM] (02/14/18 7:58 AM) Eosinophils # 0.1 K/CMM [0.0-0.5 K/CMM] (02/14/18 7:58 AM) Basophils # [0.0-0.2 0.1 K/CMM K/CMM] (02/14/18 7:58 AM) PT [12.0-14.7 12.5 seconds seconds] (02/14/18 7:58 AM) INR [0.85-1.17] 0.93 (02/14/18 7:58 AM) PTT [22.9-35.8 29.8 seconds seconds] (02/14/18 7:58 AM) Immunizations No data available for this [...]
--- OUTSIDE RECORDS SUMMARY | 2018-11-10 00:08 | XMS REPORT | Summary of Care ---
Author Author [facility] Organization [facility] Address Unknown Phone Unavailable Encounter BELIA Johnson(YANY) [id number] Date(s): 03/19/18 - 03/19/18 [facility] [address] [place] [address]- [phone] Encounter Diagnosis Abdominal pain in female. (Discharge Diagnosis) - 03/19/18 Left upper quadrant pain (Final) - 03/23/18 Nausea with vomiting, unspecified (Final) - Calculus of kidney (Final) - Other specified postprocedural states (Final) - Personal history of urinary calculi (Final) - Acquired absence of other specified parts of digestive tract (Final) - Personal history of other diseases of the digestive system (Final) - Discharge Disposition: Home or Self Care Attending Physician: Dmitriy Benton MD Vital Signs Most recent to 1 2 oldest [Reference Range]: Temperature Oral 98.5 DegF 97.7 DegF [96.4-99.1 DegF] (03/19/18 12:03 PM) (03/19/18 8:19 AM) Blood Pressure 177/88 mmHg 133/80 mmHg [90-140/60-90 mmHg] *HI* (03/19/18 8:19 AM) (03/19/18 12:03 PM) Respiratory Rate 16 BRMIN 19 BRMIN [14-20 BRMIN] (03/19/18 12:03 PM) (03/19/18 8:19 AM) Peripheral Pulse 78 bpm 105 bpm Rate [60-100 bpm] (03/19/18 12:03 PM) *HI* (03/19/18 8:19 AM) Weight 105.545 kg (03/19/18 8:19 AM) Problem List Condition Effective Dates Status Health Status Informant Kidney Active stone(Confirmed) Ovarian Resolved cyst(Confirmed) Vaginal bleeding Active problem(Confirmed) Vaginal Active delivery(Confirmed) Allergies, Adverse Reactions, Alerts Substance Reaction Severity Status codeine sulfate Active traMADol1 Active 1Puritis Medications acetaminophen 1,000 mg, 2 tab, Route: PO, Drug form: TAB, ONCE, Dosing Weight 105.545, kg, Marissa ority: STAT, Start date: 03/19/18 12:16:00 CDT, Stop date: 03/19/18 12:16:00 CDT Notes: Max acetaminophen 4000 mg/day (4 gm/day). (Same as: Tylenol Extra Streng th) Start Date: 03/19/18 Stop Date: 03/19/18 Status: Completed ibuprofen 400 mg, 1 tab, Route: PO, Drug form: TAB, ONCE, Dosing Weight 105.545, kg, Prior ity: STAT, Start date: 03/19/18 12:16:00 CDT, Stop date: 03/19/18 12:16:00 CDT Notes: (Same as: Reg)"Do Not Crush" Give with food. Start Date: 03/19/18 Stop Date: 03/19/18 Status: Completed morphine Sulfate 4 mg, 1 mL, Route: IVP, Drug form: SOLN, ONCE, Dosing Weight 105.545, kg, Priori ty: STAT, Start date: 03/19/18 10:24:00 CDT, Stop date: 03/19/18 10:24:00 CDT Notes: (Same as:MORPhine Sulfate) Start Date: 03/19/18 Stop Date: 03/19/18 Status: Completed ondansetron 4 mg, 2 mL, Route: IVP, Drug form: INJ, ONCE, Dosing Weight 105.545, kg, Priorit y: STAT, Start date: 03/19/18 10:24:00 CDT, Stop date: 03/19/18 10:24:00 CDT Notes: (Same as: Kimber) MEDICATION WASTE Product Size: 4 mgProduct Was luisito: ___ mg Start Date: 03/19/18 Stop Date: 03/19/18 Status: Completed Sodium Chloride 0.9% (Bolus) IV 1,000 mL, 1000 ml/hr, Infuse Over: 1 hr, Route: IV, 1,000, Drug form: INJ, ONCE, Priority: STAT, Dosing Weight 105.545 kg, Start date: 03/19/18 10:24:00 CDT, St op date: 03/19/18 10:24:00 CDT Start Date: 03/19/18 Stop Date: 03/19/18 Status: Completed Results Most recent to 1 oldest [Reference Range]: Neutrophils # 3.9 K/CMM [1.5-8.1 K/CMM] (03/19/18 10:47 AM) Lymphocytes # 1.6 K/CMM [1.0-5.5 K/CMM] (03/19/18 10:47 AM) Monocytes # [0.0-0.8 0.3 K/CMM K/CMM] (03/19/18 10:47 AM) Eosinophils # 0.3 K/CMM [0.0-0.5 K/CMM] (03/19/18 10:47 AM) Basophils # [0.0-0.2 0.1 K/CMM K/CMM] (03/19/18 10:47 AM) Bili Indirect Unable to Calculate [0.0-1.0] *NA* (03/19/18 10:47 AM) eGFR 80 mL/min/1.73m2 1 *NA* (03/19/18 10:47 AM) A/G Ratio [0.7-1.6] 1.0 (03/19/18 10:47 AM) Albumin Lvl [3.5-5.0 3.6 g/dL g/dL] (03/19/18 10:47 AM) Alk Phos [39-136 123 unit/L unit/L] (03/19/18 10:47 AM) ALT [0-65 unit/L] 31 unit/L (03/19/18 10:47 AM) AGAP [10.0-20.0 8.4 mEq/L mEq/L] *LOW* (03/19/18 10:47 AM) AST [0-37 unit/L] 18 unit/L (03/19/18 10:47 AM) Basophils [0.0-1.0 1.1 % %] *HI* (03/19/18 10:47 AM) BUN [7-22 mg/dL] 14 mg/dL (03/19/18 10:47 AM) Calcium Lvl 9.1 mg/dL [8.5-10.5 mg/dL] (03/19/18 10:47 AM) Chloride Lvl [95-109 105 mEq/L mEq/L] (03/19/18 10:47 AM) CO2 [24-32 mEq/L] 29 mEq/L (03/19/18 10:47 AM) Creatinine Lvl 0.90 mg/dL [0.50-1.40 mg/dL] (03/19/18 10:47 AM) Bili Direct [0.0-0.3 <0.1 mg/dL mg/dL] (03/19/18 10:47 AM) Eosinophils [0.0-4.0 4.1 % %] *HI* (03/19/18 10:47 AM) Globulin [2.7-4.2 3.7 g/dL g/dL] (03/19/18 10:47 AM) Glucose Lvl [70-99 83 mg/dL mg/dL] (03/19/18 10:47 AM) Hct [36.0-48.0 %] 40.1 % (03/19/18 10:47 AM) Hgb [12.0-16.0 g/dL] 12.9 g/dL (03/19/18 10:47 AM) Potassium Lvl 4.4 mEq/L [3.5-5.1 mEq/L] (03/19/18 10:47 AM) Lipase Lvl [73-393 117 unit/L unit/L] (03/19/18 10:47 AM) Lymphocytes 26.6 % [20.0-40.0 %] (03/19/18 10:47 AM) MCH [27.0-31.0 pg] 28.6 pg (03/19/18 10:47 AM) MCHC [32.0-36.0 32.2 g/dL g/dL] (03/19/18 10:47 AM) MCV [80.0-98.0 fL] 88.9 fL (03/19/18 10:47 AM) Monocytes [2.0-12.0 5.1 % %] (03/19/18 10:47 AM) MPV [7.4-10.4 fL] 7.0 fL *LOW* (03/19/18 10:47 AM) Sodium Lvl [135-145 138 mEq/L mEq/L] (03/19/18 10:47 AM) Platelet [133-450 328 K/CMM K/CMM] (03/19/18 10:47 AM) Segs [45.0-75.0 %] 63.1 % (03/19/18 10:47 AM) Total Protein 7.3 g/dL [6.4-8.4 g/dL] (03/19/18 10:47 AM) RBC [4.20-5.40 4.51 M/CMM M/CMM] (03/19/18 10:47 AM) RDW [11.5-14.5 %] 15.2 % *HI* (03/19/18 10:47 AM) Bili Total [0.2-1.3 0.3 mg/dL mg/dL] (03/19/18 10:47 AM) UA Bacteria [None Few /HPF Seen /HPF] *NA* (03/19/18 10:47 AM) UA Bili [Negative] Negative *NA* (03/19/18 10:47 AM) UA Blood [Negative] Negative (03/19/18 10:47 AM) UA Color [Yellow] Light Yellow *NA* (03/19/18 10:47 AM) UA Glucose [Negative Negative mg/dL mg/dL] *NA* (03/19/18 10:47 AM) UA Ketones [Negative Negative mg/dL mg/dL] *NA* (03/19/18 10:47 AM) UA Leuk Est Negative [Negative] (03/19/18 10:47 AM) UA Nitrite Negative [Negative] (03/19/18 10:47 AM) UA pH [5.0-8.0] 5.0 (03/19/18 10:47 AM) U Preg [Negative] Negative (03/19/18 10:47 AM) UA Protein [Negative Negative mg/dL mg/dL] (03/19/18 10:47 AM) UA RBC [0-2 /HPF] 2 /HPF (03/19/18 10:47 AM) UA Spec Grav 1.006 [<=1.030] (03/19/18 10:47 AM) UA Sq Epi [Few /LPF] Many /LPF *ABN* (03/19/18 10:47 AM) UA Turbidity [Clear] Slight *ABN* (03/19/18 10:47 AM) UA Urobilinogen <=1.0 mg/dL [0.1-1.0 mg/dL] *NA* (03/19/18 10:47 AM) UA WBC [0-5 /HPF] 3 /HPF (03/19/18 10:47 AM) WBC [3.7-10.4 K/CMM] 6.2 K/CMM (03/19/18 10:47 AM) 1Result Comment: The eGFR is calculated [...]
--- OUTSIDE RECORDS SUMMARY | 2018-11-10 00:08 | XMS REPORT | Summary of Care ---
Author Author [facility] Organization [facility] Address Unknown Phone Unavailable Encounter BELIA Johnson(YANY) [id number] Date(s): 02/19/18 - 02/19/18 [facility] [address] [place] [address]- Encounter Diagnosis Nausea & vomiting (Discharge Diagnosis) - 02/19/18 Right lower quadrant abdominal pain (Discharge Diagnosis) - 02/19/18 Right lower quadrant pain (Final) - 05/01/18 Nausea with vomiting, unspecified (Final) - Discharge Disposition: Home or Self Care Attending Physician: Olivia Alejandra MD Vital Signs Most recent to 1 2 oldest [Reference Range]: Height 162.56 cm (02/19/18 7:55 AM) Temperature Oral 97.9 DegF 98.7 DegF [96.4-99.1 DegF] (02/19/18 12:10 PM) (02/19/18 7:55 AM) Blood Pressure 113/77 mmHg 130/82 mmHg [90-140/60-90 mmHg] (02/19/18 12:10 PM) (02/19/18 7:55 AM) Respiratory Rate 16 BRMIN 16 BRMIN [14-20 BRMIN] (02/19/18 12:10 PM) (02/19/18 7:55 AM) Peripheral Pulse 76 bpm 102 bpm Rate [60-100 bpm] (02/19/18 12:10 PM) *HI* (02/19/18 7:55 AM) Weight 100 kg (02/19/18 7:55 AM) Body Mass Index 37.84 m2 (02/19/18 7:55 AM) Problem List Condition Effective Dates Status Health Status Informant Kidney Active stone(Confirmed) Ovarian Resolved cyst(Confirmed) Vaginal bleeding Active problem(Confirmed) Vaginal Active delivery(Confirmed) Allergies, Adverse Reactions, Alerts Substance Reaction Severity Status codeine sulfate Active traMADol1 Active 1Puritis Medications ibuprofen 600 mg oral tablet 600 mg=1 tab, PO, Q6H, PRN Pain or Fever, Take with food, X 10 day, # 40 tab, 0 Refill(s) Start Date: 02/19/18 Stop Date: 03/01/18 Status: Completed ketOROLAC 30 mg, 1 mL, Route: IVP, Drug form: INJ, ONCE, Dosing Weight 100, kg, Priority: STAT, Start date: 02/19/18 9:00:00 CDT, Stop date: 02/19/18 9:00:00 CDT Notes: (Same as:Toradol) IV bolus must be given >15 seconds. Give IM administration slowly and deeply into the muscle.Not for use > 4 days MEDICATION WASTE Product Size: 30 mgProduct Wasted: ___ mg Start Date: 02/19/18 Stop Date: 02/19/18 Status: Completed morphine Sulfate 4 mg, Route: IV, ONCE, Dosing Weight 100, kg, Start date: 02/19/18 11:46:00 CDT, Stop date: 02/19/18 11:46:00 CDT Start Date: 02/19/18 Stop Date: 02/19/18 Status: Completed morphine Sulfate 4 mg, Route: IM, ONCE, Dosing Weight 100, kg, Priority: STAT, Start date: 11:45:00 CDT, Stop date: 02/19/18 11:45:00 CDT Start Date: 02/19/18 Stop Date: 02/19/18 Status: Discontinued morphine Sulfate 4 mg, 1 mL, Route: IVP, Drug form: SOLN, ONCE, Dosing Weight 100, kg, Priority: STAT, Start date: 02/19/18 8:12:00 CDT, Stop date: 02/19/18 8:12:00 CDT Notes: (Same as:MORPhine Sulfate) Start Date: 02/19/18 Stop Date: 02/19/18 Status: Completed Lowell 5/325 oral tablet 1 tab, Route: PO, Drug Form: TAB, Dosing Weight 100, kg, ONCE, STAT, Start date: 02/19/18 10:09:00 CDT, Stop date: 02/19/18 10:09:00 CDT Notes: (Same as: Lowell 325/5) Do not exceed 4gm/day of acetaminophen. Start Date: 02/19/18 Stop Date: 02/19/18 Status: Completed Saline Flush 0.9% 10 mL, Route: IVP, Drug Form: INJ, Dosing Weight 100, kg, PRN, PRN Line Flush, S tart date: 02/19/18 8:12:00 CDT, Duration: 30 day, Stop date: 03/21/18 8:11:00 C DT Notes: (Same as: BD Posiflush) Start Date: 02/19/18 Stop Date: 02/19/18 Status: Discontinued Sodium Chloride 0.9% (Bolus) IV 1,000 mL, 1000 ml/hr, Infuse Over: 1 hr, Route: IV, 1,000, Drug form: INJ, ONCE, Priority: STAT, Dosing Weight 100 kg, Start date: 02/19/18 8:12:00 CDT, Stop da te: 02/19/18 8:12:00 CDT Start Date: 02/19/18 Stop Date: 02/19/18 Status: Completed Zofran ODT 4 mg, 1 tab, Route: PO, Drug form: TABDIS, ONCE, Dosing Weight 100, kg, Priority : STAT, Start date: 02/19/18 8:12:00 CDT, Stop date: 02/19/18 8:12:00 CDT Notes: (Same as: Zofran ODT) Start Date: 02/19/18 Stop Date: 02/19/18 Status: Completed Zofran ODT 4 mg, Route: PO, Drug form: TABDIS, ONCE, Dosing Weight 100, kg, Priority: STAT, Start date: 02/19/18 11:45:00 CDT, Stop date: 02/19/18 11:45:00 CDT Start Date: 02/19/18 Stop Date: 02/19/18 Status: Completed Zofran ODT 4 mg oral tablet, disintegrating 4 mg=1 tab, PO, BID, PRN Nausea and Vomiting, Dissolve tab under tongue, # 10 ta b, 0 Refill(s) Start Date: 02/19/18 Stop Date: 05/06/18 Status: Completed Results ELECTROLYTES Most recent to 1 oldest [Reference Range]: Sodium Lvl [135-145 141 mEq/L mEq/L] (02/19/18 8: AM) Potassium Lvl 4.4 mEq/L [3.5-5.1 mEq/L] (02/19/18 8: AM) Chloride Lvl [95-109 106 mEq/L mEq/L] (02/19/18 8: AM) CO2 [24-32 mEq/L] 22 mEq/L *LOW* (02/19/18 AM) AGAP [10.0-20.0 17.4 mEq/L mEq/L] (02/19/18 8: AM) CHEM PANEL Most recent to 1 oldest [Reference Range]: Creatinine Lvl 1.25 mg/dL [0.50-1.40 mg/dL] (02/19/18 8: AM) eGFR 54 mL/min/1.73m2 1 *NA* (02/19/18 AM) BUN [7-22 mg/dL] 18 mg/dL (02/19/18: AM) B/C Ratio [6-25] 14 (02/19/18 8: AM) Glucose Lvl [70-99 109 mg/dL mg/dL] *HI* (02/19/18 8: AM) Total Protein 6.7 g/dL [6.4-8.4 g/dL] (02/19/18 8 AM) Albumin Lvl [3.5-5.0 3.2 g/dL g/dL] *LOW* (02/19/18 8: AM) Globulin [2.7-4.2 3.5 g/dL g/dL] (02/19/18 8: AM) A/G Ratio [0.7-1.6] 0.9 (02/19/18 8: AM) Calcium Lvl 8.4 mg/dL [8.5-10.5 mg/dL] *LOW* (02/19/18 8: AM) ALT [0-65 unit/L] 38 unit/L (02/19/18 8: AM) AST [0-37 unit/L] 28 unit/L (02/19/18 8: AM) Alk Phos [39-136 94 unit/L unit/L] (02/19/18 8:22 AM) Bili Total [0.2-1.3 0.5 mg/dL mg/dL] (02/19/18 8:22 AM) Lipase Lvl [73-393 117 unit/L unit/L] (02/19/18 8:22 AM) 1Result Comment: The eGFR is calculated [...] [Reference Range]: UA Turbidity [Clear] Slight *ABN* (02/19/18 8:22 AM) UA Color Ltyellow *NA* (02/19/18 8:22 AM) UA pH [5.0-8.0] 7.0 (02/19/18 8:22 AM) UA Spec Grav 1.010 [<=1.030] (02/19/18 8:22 AM) UA Glucose [Negative Negative mg/dL mg/dL] *NA* (02/19/18 8:22 AM) UA Blood [Negative] Negative (02/19/18 8:22 AM) UA Ketones [Negative Negative mg/dL mg/dL] *NA* (02/19/18 8:22 AM) UA Protein [Negative Negative mg/dL mg/dL] (02/19/18 8:22 AM) UA Urobilinogen <=1.0 mg/dL [0.1-1.0 mg/dL] *NA* (02/19/18 8:22 AM) UA Bili [Negative] Negative *NA* (02/19/18 8:22 AM) UA Leuk Est Negative [Negative] (02/19/18 8:22 AM) UA Nitrite Negative [Negative] (02/19/18 8:22 AM) UA WBC [0-5 /HPF] 2 /HPF (02/19/18 8:22 AM) UA RBC [0-2 /HPF] 4 /HPF *HI* (02/19/18 8:22 AM) UA Bacteria [None Moderate /HPF Seen /HPF] *ABN* (02/19/18 8: AM) UA Sq Epi [Few /LPF] Occasional /LPF *NA* (02/19/18 8:22 AM) HEMATOLOGY Most recent to 1 oldest [Reference Range]: WBC [3.7-10.4 K/CMM] 7.5 K/CMM (02/19/18 8:22 AM) RBC [4.20-5.40 4.33 M/CMM M/CMM] (02/19/18 8:22 AM) Hgb [12.0-16.0 g/dL] 13.1 g/dL (02/19/18 8: AM) Hct [36.0-48.0 %] 37.6 % (02/19/18 8:22 AM) MCV [80.0-98.0 fL] 86.7 fL (02/19/18 8:22 AM) MCH [27.0-31.0 pg] 30.3 pg (02/19/18 8:22 AM) MCHC [32.0-36.0 34.9 g/dL g/dL] (02/19/18 8: AM) RDW [11.5-14.5 %] 14.7 % *HI* (02/19/18 8:22 AM) MPV [7.4-10.4 fL] 7.3 fL *LOW* (02/19/18 8:22 AM) Platelet [133-450 287 K/CMM K/CMM] (02/19/18 8:22 AM) Segs [45.0-75.0 %] 71.5 % (02/19/18 8:22 AM) Lymphocytes 21.9 % [20.0-40.0 %] (02/19/18 8:22 AM) Monocytes [2.0-12.0 4.1 % %] (02/19/18 8:22 AM) Eosinophils [0.0-4.0 1.8 % %] (02/19/18 8:22 AM) Basophils [0.0-1.0 0.7 % %] (02/19/18 8:22 AM) Neutrophils # 5.3 K/CMM [1.5-8.1 K/CMM] (02/19/18 8:22 AM) Lymphocytes # 1.6 K/CMM [1.0-5.5 K/CMM] (02/19/18 8:22 AM) Monocytes # [0.0-0.8 0.3 K/CMM K/CMM] (02/19/18 8:22 AM) Eosinophils # 0.1 K/CMM [0.0-0.5 K/CMM] (02/19/18 8:22 AM) Basophils # [0.0-0.2 0.1 K/CMM K/CMM] (02/19/18 8:22 AM) Immunizations No data available for this [...]
--- OUTSIDE RECORDS SUMMARY | 2018-11-10 00:08 | XMS REPORT | Summary of Care ---
Author Author [facility] Organization [facility] Address Unknown Phone Unavailable Encounter HQ Elizabeth(FIN) [id number] Date(s): 06/10/17 - 06/10/17 [facility] [address] [place] [address]- [phone] Encounter Diagnosis Atypical chest pain (Discharge Diagnosis) - 06/10/17 Nausea (Discharge Diagnosis) - 06/10/17 Other chest pain (Final) - 06/16/17 Nausea (Final) - Personal history of nicotine dependence (Final) - Discharge Disposition: Home or Self Care Attending Physician: Feliz De La Cruz DO Vital Signs Most recent to 1 2 oldest [Reference Range]: Height 162.56 cm (06/10/17 7:56 AM) Temperature Oral 98.1 DegF 98.2 DegF [96.4-99.1 DegF] (06/10/17 1:01 PM) (06/10/17 7:56 AM) Blood Pressure 119/77 mmHg 102/65 mmHg [90-140/60-90 mmHg] (06/10/17 1:01 PM) (06/10/17 7:56 AM) Respiratory Rate 18 BRMIN 18 BRMIN [14-20 BRMIN] (06/10/17 1:01 PM) (06/10/17 7:56 AM) Peripheral Pulse 67 bpm 102 bpm Rate [60-100 bpm] (06/10/17 1:01 PM) *HI* (06/10/17 7:56 AM) Weight 100 kg (06/10/17 7:56 AM) Body Mass Index 37.84 m2 (06/10/17 7:56 AM) Problem List Condition Effective Dates Status Health Status Informant Kidney Active stone(Confirmed) Ovarian Resolved cyst(Confirmed) Vaginal bleeding Active problem(Confirmed) Vaginal Active delivery(Confirmed) Allergies, Adverse Reactions, Alerts Substance Reaction Severity Status acetaminophen-codeine1 Mild Active NKDA NKDA - No known drug allergies Active traMADol2 Active 1Puritis 2Puritis Medications ibuprofen 600 mg oral tablet 600 mg=1 tab, PO, Q6H, PRN Pain or Fever, Take with food, X 10 day, # 40 tab, 0 Refill(s) Start Date: 06/10/17 Stop Date: 06/20/17 Status: Completed morphine Sulfate 2 mg, Route: IVP, ONCE, Dosing Weight 100, kg, Priority: STAT, Start date: 06/10 11:12:00 CRIMINALIST, Stop date: 06/10/17 11:12:00 CRIMINALIST Start Date: 06/10/17 Stop Date: 06/10/17 Status: Completed ondansetron 4 mg, Route: IVP, Drug form: INJ, ONCE, Dosing Weight 100, kg, Priority: STAT, S tart date: 06/10/17 11:12:00 CRIMINALIST, Stop date: 06/10/17 11:12:00 CRIMINALIST Start Date: 06/10/17 Stop Date: 06/10/17 Status: Completed Sodium Chloride 0.9% (Bolus) IV 1,000 mL, Infuse Over: 1 hr, Route: IV, ONCE, Priority: STAT, Dosing Weight 100 kg, Start date: 06/10/17 8:36:00 CRIMINALIST, Stop date: 06/10/17 8:36:00 CRIMINALIST Start Date: 06/10/17 Stop Date: 06/10/17 Status: Completed Zofran ODT 4 mg oral tablet, disintegrating 4 mg=1 tab, PO, BID, PRN Nausea and Vomiting, Dissolve tab under tongue, # 10 ta b, 0 Refill(s) Start Date: 06/10/17 Stop Date: 06/15/17 Status: Ordered Results ELECTROLYTES Most recent to 1 2 oldest [Reference Range]: Sodium Lvl [135-145 140 mEq/L mEq/L] (06/10/17 8:43 AM) Potassium Lvl 3.8 mEq/L [3.5-5.1 mEq/L] (06/10/17 8:43 AM) Chloride Lvl [95-109 108 mEq/L mEq/L] (06/10/17 8:43 AM) CO2 [24-32 mEq/L] 23 mEq/L *LOW* (06/10/17 8:43 AM) AGAP [10.0-20.0 12.8 mEq/L mEq/L] (06/10/17 8:43 AM) CHEM PANEL Most recent to 1 2 oldest [Reference Range]: Creatinine Lvl 0.94 mg/dL [0.50-1.40 mg/dL] (06/10/17 8:43 AM) eGFR 77 mL/min/1.73m2 1 *NA* (06/10/17 8:43 AM) BUN [7-22 mg/dL] 12 mg/dL (06/10/17 8:43 AM) B/C Ratio [6-25] 13 (06/10/17 8:43 AM) Glucose Lvl [70-99 120 mg/dL mg/dL] *HI* (06/10/17 8:43 AM) Total Protein 7.0 g/dL [6.4-8.4 g/dL] (06/10/17 8:43 AM) Albumin Lvl [3.5-5.0 3.6 g/dL g/dL] (06/10/17 8:43 AM) Globulin [2.7-4.2 3.4 g/dL g/dL] (06/10/17 8:43 AM) A/G Ratio [0.7-1.6] 1.1 (06/10/17 8:43 AM) Calcium Lvl 8.2 mg/dL [8.5-10.5 mg/dL] *LOW* (06/10/17 8:43 AM) ALT [0-65 unit/L] 15 unit/L (06/10/17 8:43 AM) AST [0-37 unit/L] 9 unit/L (06/10/17 8:43 AM) Alk Phos [39-136 88 unit/L unit/L] (06/10/17 8:43 AM) Bili Total [0.2-1.3 0.4 mg/dL mg/dL] (06/10/17 8:43 AM) 1Result Comment: The eGFR is calculated [...] BMI. CARDIAC ENZYMES Most recent to 1 2 oldest [Reference Range]: Troponin-I <0.02 ng/mL <0.02 ng/mL [0.00-0.40 ng/mL] (06/10/17 11:19 AM) (06/10/17 8:43 AM) URINE CHEM Most recent to 1 2 oldest [Reference Range]: U Preg [Negative] Negative (06/10/17 8:44 AM) URINE AND STOOL Most recent to 1 2 oldest [Reference Range]: UA Turbidity [Clear] Clear (06/10/17 8:44 AM) UA Color Ltyellow *NA* (06/10/17 8:44 AM) UA pH [5.0-8.0] 7.0 (06/10/17 8:44 AM) UA Spec Grav 1.008 [<=1.030] (06/10/17 8:44 AM) UA Glucose [Negative Negative mg/dL mg/dL] *NA* (06/10/17 8:44 AM) UA Blood [Negative] Negative (06/10/17 8:44 AM) UA Ketones [Negative Negative mg/dL mg/dL] *NA* (06/10/17 8:44 AM) UA Protein [Negative Negative mg/dL mg/dL] (06/10/17 8:44 AM) UA Urobilinogen <=1.0 mg/dL [0.1-1.0 mg/dL] *NA* (06/10/17 8:44 AM) UA Bili [Negative] Negative *NA* (06/10/17 8:44 AM) UA Leuk Est Trace [Negative] *ABN* (06/10/17 8:44 AM) UA Nitrite Negative [Negative] (06/10/17 8:44 AM) UA WBC [0-5 /HPF] 2 /HPF (06/10/17 8:44 AM) UA RBC [0-2 /HPF] 1 /HPF (06/10/17 8:44 AM) UA Bacteria [None Moderate /HPF Seen /HPF] *ABN* (06/10/17 8:44 AM) UA Sq Epi [Few /LPF] Moderate /LPF *ABN* (06/10/17 8:44 AM) HEMATOLOGY Most recent to 1 2 oldest [Reference Range]: WBC [3.7-10.4 K/CMM] 5.3 K/CMM (06/10/17 8:43 AM) RBC [4.20-5.40 4.27 M/CMM M/CMM] (06/10/17 8:43 AM) Hgb [12.0-16.0 g/dL] 12.9 g/dL (06/10/17 8:43 AM) Hct [36.0-48.0 %] 37.5 % (06/10/17 8:43 AM) MCV [80.0-98.0 fL] 87.9 fL (06/10/17 8:43 AM) MCH [27.0-31.0 pg] 30.1 pg (06/10/17 8:43 AM) MCHC [32.0-36.0 34.3 g/dL g/dL] (06/10/17 8:43 AM) RDW [11.5-14.5 %] 14.8 % *HI* (06/10/17 8:43 AM) MPV [7.4-10.4 fL] 8.1 fL (06/10/17 8:43 AM) Platelet [133-450 218 K/CMM K/CMM] (06/10/17 8:43 AM) Segs [45.0-75.0 %] 59.6 % (06/10/17 8:43 AM) Lymphocytes 29.6 % [20.0-40.0 %] (06/10/17 8:43 AM) Monocytes [2.0-12.0 6.7 % %] (06/10/17 8:43 AM) Eosinophils [0.0-4.0 3.0 % %] (06/10/17 8:43 AM) Basophils [0.0-1.0 1.1 % %] *HI* (06/10/17 8:43 AM) Segs-Bands # 3.2 K/CMM [1.5-8.1 K/CMM] (06/10/17 8:43 AM) Lymphocytes # 1.6 K/CMM [1.0-5.5 K/CMM] (06/10/17 8:43 AM) Monocytes # [0.0-0.8 0.4 K/CMM K/CMM] (06/10/17 8:43 AM) Eosinophils # 0.2 K/CMM [0.0-0.5 K/CMM] (06/10/17 8:43 AM) Basophils # [0.0-0.2 0.1 K/CMM K/CMM] (06/10/17 8:43 AM) VIRAL - SEROLOGY Most recent to 1 2 oldest [Reference Range]: Influ A [Negative] Negative (06/10/17 8:43 AM) Influ B [Negative] Negative (06/10/17 8:43 AM) Immunizations No data available for this [...] Reg Smoking Cessation Counseling No entered on: 08/25/17 Assessment and Plan No data available for this section
--- OUTSIDE RECORDS SUMMARY | 2018-11-10 00:09 | XMS REPORT | Summary of Care ---
Author Author [facility] Organization [facility] Address Unknown Phone Unavailable Encounter BELIA Johnson(YANY) [id number] Date(s): 09/09/18 - 09/09/18 [facility] [address] [place] [address]- Discharge Disposition: Elopement Attending Physician: Danyel Forte MD Vital Signs Most recent to 1 oldest [Reference Range]: Height 162.56 cm (09/09/18 7:52 AM) Temperature Oral 98.2 DegF [96.4-99.1 DegF] (09/09/18 7:52 AM) Blood Pressure 122/77 mmHg [90-140/60-90 mmHg] (09/09/18 7:52 AM) Respiratory Rate 16 BRMIN [14-20 BRMIN] (09/09/18 7:52 AM) Peripheral Pulse 104 bpm Rate [60-100 bpm] *HI* (09/09/18 7:52 AM) Weight 100 kg (09/09/18 7:52 AM) Body Mass Index 37.84 m2 (09/09/18 7:52 AM) Problem List Condition Effective Dates Status Health Status Informant Kidney Active stone(Confirmed) Ovarian Resolved cyst(Confirmed) Vaginal bleeding Active problem(Confirmed) Vaginal Active delivery(Confirmed) Allergies, Adverse Reactions, Alerts Substance Reaction Severity Status codeine sulfate Active traMADol1 Active 1Puritis Medications metoclopramide 10 mg, 2 mL, Route: IVP, Drug form: INJ, ONCE, Dosing Weight 100, kg, Priority: STAT, Start date: 09/09/18 10:00:00 CDT, Stop date: 09/09/18 10:00:00 CDT Notes: (Same as: Genia) Start Date: 09/09/18 Stop Date: 09/09/18 Status: Ordered Sodium Chloride 0.9% (Bolus) IV 1,000 mL, 1000 ml/hr, Infuse Over: 1 hr, Route: IV, 1,000, Drug form: INJ, ONCE, Priority: STAT, Dosing Weight 100 kg, Start date: 09/09/18 10:00:00 CDT, Stop d ate: 09/09/18 10:00:00 CDT Start Date: 09/09/18 Stop Date: 09/09/18 Status: Ordered Results ELECTROLYTES Most recent to 1 oldest [Reference Range]: Sodium Lvl [135-145 142 mEq/L mEq/L] (09/09/18 9:40 AM) Potassium Lvl 4.1 mEq/L [3.5-5.1 mEq/L] (09/09/18 9:40 AM) Chloride Lvl [95-109 111 mEq/L mEq/L] *HI* (09/09/18 9:40 AM) CO2 [24-32 mEq/L] 22 mEq/L *LOW* (09/09/18 9:40 AM) AGAP [10.0-20.0 13.1 mEq/L mEq/L] (09/09/18 9:40 AM) CHEM PANEL Most recent to 1 oldest [Reference Range]: Creatinine Lvl 0.92 mg/dL [0.50-1.40 mg/dL] (09/09/18 9:40 AM) eGFR 78 mL/min/1.73m2 1 *NA* (09/09/18 9:40 AM) BUN [7-22 mg/dL] 10 mg/dL (09/09/18 9:40 AM) B/C Ratio [6-25] 11 (09/09/18 9:40 AM) Glucose Lvl [70-99 76 mg/dL mg/dL] (09/09/18 9:40 AM) Total Protein 6.8 g/dL [6.4-8.4 g/dL] (09/09/18 9:40 AM) Albumin Lvl [3.5-5.0 3.4 g/dL g/dL] *LOW* (09/09/18 9:40 AM) Globulin [2.7-4.2 3.4 g/dL g/dL] (09/09/18 9:40 AM) A/G Ratio [0.7-1.6] 1.0 (09/09/18 9:40 AM) Calcium Lvl 8.4 mg/dL [8.5-10.5 mg/dL] *LOW* (09/09/18 9:40 AM) ALT [0-65 unit/L] 30 unit/L (09/09/18 9:40 AM) AST [0-37 unit/L] 16 unit/L (09/09/18 9:40 AM) Alk Phos [39-136 91 unit/L unit/L] (09/09/18 9:40 AM) Bili Total [0.2-1.3 0.2 mg/dL mg/dL] (09/09/18 9:40 AM) 1Result Comment: The eGFR is calculated [...] 1 oldest [Reference Range]: Total CK [12-191 99 unit/L unit/L] (09/09/18 9:40 AM) CK MB [0.5-3.6 <1.0 ng/mL ng/mL] (09/09/18 9:40 AM) CK MB Index <1.0 [0.0-2.5] (09/09/18 9:40 AM) Troponin-I <0.02 ng/mL [0.00-0.40 ng/mL] (09/09/18 9:40 AM) DRUG SCREEN Most recent to 1 oldest [Reference Range]: U Amph Scr Negative [Negative] *NA* (09/09/18 9:40 AM) U Elaine Scr Negative [Negative] *NA* (09/09/18 9:40 AM) U Benzodiaz Scr Positive [Negative] *ABN* (09/09/18 9:40 AM) U Cannab Scr Positive [Negative] *ABN* (09/09/18 9:40 AM) U Cocaine Scr Negative [Negative] *NA* (09/09/18 9:40 AM) U Opiate Scr Positive [Negative] *ABN* (09/09/18 9:40 AM) U Phencyclidine Scr Negative [Negative] *NA* (09/09/18 9:40 AM) UDS Note See Note (09/09/18 9:40 AM) HEMATOLOGY Most recent to 1 oldest [Reference Range]: WBC [3.7-10.4 K/CMM] 5.0 K/CMM (09/09/18 9:40 AM) RBC [4.20-5.40 4.14 M/CMM M/CMM] *LOW* (09/09/18 9:40 AM) Hgb [12.0-16.0 g/dL] 12.2 g/dL (09/09/18 9:40 AM) Hct [36.0-48.0 %] 35.8 % *LOW* (09/09/18 9:40 AM) MCV [80.0-98.0 fL] 86.5 fL (09/09/18 9:40 AM) MCH [27.0-31.0 pg] 29.5 pg (09/09/18 9:40 AM) MCHC [32.0-36.0 34.1 g/dL g/dL] (09/09/18 9:40 AM) RDW [11.5-14.5 %] 14.7 % *HI* (09/09/18 9:40 AM) MPV [7.4-10.4 fL] 7.5 fL (09/09/18 9:40 AM) Platelet [133-450 252 K/CMM K/CMM] (09/09/18 9:40 AM) Segs [45.0-75.0 %] 56.7 % (09/09/18 9:40 AM) Lymphocytes 33.6 % [20.0-40.0 %] (09/09/18 9:40 AM) Monocytes [2.0-12.0 6.3 % %] (09/09/18 9:40 AM) Eosinophils [0.0-4.0 2.4 % %] (09/09/18 9:40 AM) Basophils [0.0-1.0 1.0 % %] (09/09/18 9:40 AM) Neutrophils # 2.8 K/CMM [1.5-8.1 K/CMM] (09/09/18 9:40 AM) Lymphocytes # 1.7 K/CMM [1.0-5.5 K/CMM] (09/09/18 9:40 AM) Monocytes # [0.0-0.8 0.3 K/CMM K/CMM] (09/09/18 9:40 AM) Eosinophils # 0.1 K/CMM [0.0-0.5 K/CMM] (09/09/18 9:40 AM) Basophils # [0.0-0.2 0.1 K/CMM K/CMM] (09/09/18 9:40 AM) Immunizations No data available for this [...] Frequency: 1-2 times per month. Smoking Status Never smoker; Exposure to Tobacco Smoke None; Cigarette Smoking Last 365 Days No; Reg Smoking Cessation Counseling No entered on: 09/09/18 Assessment and Plan No data available for this section
--- OUTSIDE RECORDS SUMMARY | 2018-11-10 00:09 | XMS REPORT | Summary of Care ---
Author Author [facility] Organization [facility] Address Unknown Phone Unavailable Encounter HQ Elizabeth(YANY) [id number] Date(s): 12/02/17 - 12/02/17 [facility] [address] [place] [address]- Encounter Diagnosis Abdominal pain, acute, right lower quadrant (Discharge Diagnosis) - 12/02/17 Nausea & vomiting (Discharge Diagnosis) - 12/02/17 Drug-seeking behavior (Discharge Diagnosis) - 12/02/17 Discharge Disposition: Home or Self Care Attending Physician: Harika Thompson MD Vital Signs 1 2 3 Most recent to oldest [Reference Range]: 162.56 cm (12/02/17 7:13 AM) Height 98.3 DegF (12/02/17 9:25 AM) 98.1 DegF (12/02/17 7:13 AM) Temperature Oral [96.4-99.1 DegF] 118/73 mmHg (12/02/17 9:25 AM) 110/67 mmHg (12/02/17 7:13 AM) Blood Pressure [90-140/60-90 mmHg] 18 BRMIN (12/02/17 9:25 AM) 18 BRMIN (12/02/17 7:48 AM) 18 BRMIN (12/02/17 7:13 AM) Respiratory Rate [14-20 BRMIN] 63 bpm (12/02/17 9:25 AM) 69 bpm (12/02/17 7:48 AM) 79 bpm (12/02/17 7:13 AM) Peripheral Pulse Rate [60-100 bpm] 99.091 kg (12/02/17 7:13 AM) Weight 37.5 m2 (12/02/17 7:13 AM) Body Mass Index Problem List Condition Effective Dates Status Health Status Informant Kidney Active stone(Confirmed) Ovarian Resolved cyst(Confirmed) Vaginal bleeding Active problem(Confirmed) Vaginal Active delivery(Confirmed) Allergies, Adverse Reactions, Alerts Substance Reaction Severity Status acetaminophen-codeine1 Mild Active NKDA NKDA - No known drug allergies Active traMADol2 Active 1Puritis 2Puritis Medications Bentyl 20 mg oral tablet 20 mg=1 tab, PO, QID-Before Meals, # 20 tab, 0 Refill(s) Start Date: 12/02/17 Stop Date: 12/07/17 Status: Ordered morphine Sulfate 4 mg, Route: IVP, ONCE, Dosing Weight 99.091, kg, Priority: STAT, Start date: 7:26:00 CDT, Stop date: 12/02/17 7:26:00 CDT Start Date: 12/02/17 Stop Date: 12/02/17 Status: Completed NS (Bolus) IV 1,000 mL, 1,000 ml/hr, Infuse Over: 1 hr, Route: IV, ONCE, Priority: STAT, Dosin g Weight 99.091 kg, Start date: 12/02/17 7:26:00 CDT, Stop date: 12/02/17 7:26:0 0 CDT Start Date: 12/02/17 Stop Date: 12/02/17 Status: Completed Omnipaque 300 100 mL, Route: IV, Dosing Weight 99.091, kg, ONCE, Start date: 12/02/17 8:36:00 CDT, Stop date: 12/02/17 8:36:00 CDT Start Date: 12/02/17 Stop Date: 12/02/17 Status: Completed Zofran 4 mg oral tablet 4 mg=1 tab, PO, BID, # 10 tab, 0 Refill(s) Start Date: 12/02/17 Stop Date: 12/07/17 Status: Ordered Zofran ODT 4 mg, 1 tab, Route: PO, Drug form: TABDIS, ONCE, Dosing Weight 99.091, kg, Prior ity: STAT, Start date: 12/02/17 7:56:00 CDT, Stop date: 12/02/17 7:56:00 CDT Notes: (Same as: Zofran ODT) Start Date: 12/02/17 Stop Date: 12/02/17 Status: Completed Results ELECTROLYTES Most recent to 1 oldest [Reference Range]: Sodium Lvl [135-145 143 mEq/L mEq/L] (12/02/17 7:36 AM) Potassium Lvl 3.6 mEq/L [3.5-5.1 mEq/L] (12/02/17 7:36 AM) Chloride Lvl [95-109 109 mEq/L mEq/L] (12/02/17 7:36 AM) CO2 [24-32 mEq/L] 26 mEq/L (12/02/17 7:36 AM) AGAP [10.0-20.0 11.6 mEq/L mEq/L] (12/02/17 7:36 AM) CHEM PANEL Most recent to 1 oldest [Reference Range]: Creatinine Lvl 0.88 mg/dL [0.50-1.40 mg/dL] (12/02/17 7:36 AM) eGFR 83 mL/min/1.73m2 1 *NA* (12/02/17 7:36 AM) BUN [7-22 mg/dL] 10 mg/dL (12/02/17 7:36 AM) B/C Ratio [6-25] 11 (12/02/17 7:36 AM) Glucose Lvl [70-99 94 mg/dL mg/dL] (12/02/17 7:36 AM) Total Protein 6.9 g/dL [6.4-8.4 g/dL] (12/02/17 7:36 AM) Albumin Lvl [3.5-5.0 3.5 g/dL g/dL] (12/02/17 7:36 AM) Globulin [2.7-4.2 3.4 g/dL g/dL] (12/02/17 7:36 AM) A/G Ratio [0.7-1.6] 1.0 (12/02/17 7:36 AM) Calcium Lvl 8.5 mg/dL [8.5-10.5 mg/dL] (12/02/17 7:36 AM) ALT [0-65 unit/L] 17 unit/L (12/02/17 7:36 AM) AST [0-37 unit/L] 12 unit/L (12/02/17 7:36 AM) Alk Phos [39-136 93 unit/L unit/L] (12/02/17 7:36 AM) Bili Total [0.2-1.3 0.4 mg/dL mg/dL] (12/02/17 7:36 AM) Lipase Lvl [73-393 152 unit/L unit/L] (12/02/17 7:36 AM) 1Result Comment: The eGFR is calculated [...] [Reference Range]: S Preg [Negative] Negative *NA* (12/02/17 7:36 AM) URINE AND STOOL Most recent to 1 oldest [Reference Range]: UA Turbidity [Clear] Clear (12/02/17 7:36 AM) UA Color [Yellow] Yellow *NA* (12/02/17 7:36 AM) UA pH [5.0-8.0] 5.0 (12/02/17 7:36 AM) UA Spec Grav 1.014 [<=1.030] (12/02/17 7:36 AM) UA Glucose [Negative Negative mg/dL mg/dL] *NA* (12/02/17 7:36 AM) UA Blood [Negative] Negative (12/02/17 7:36 AM) UA Ketones Negative *NA* (12/02/17 7:36 AM) UA Protein [Negative Negative mg/dL mg/dL] (12/02/17 7:36 AM) UA Urobilinogen <=1.0 mg/dL [0.1-1.0 mg/dL] *NA* (12/02/17 7:36 AM) UA Bili [Negative] Negative *NA* (12/02/17 7:36 AM) UA Leuk Est Negative [Negative] (12/02/17 7:36 AM) UA Nitrite Negative [Negative] (12/02/17 7:36 AM) UA WBC [0-5 /HPF] 2 /HPF (12/02/17 7:36 AM) UA RBC [0-2 /HPF] 2 /HPF (12/02/17 7:36 AM) UA Bacteria [None Occasional /HPF Seen /HPF] *NA* (12/02/17 7:36 AM) UA Sq Epi [Few /LPF] Few /LPF *NA* (12/02/17 7:36 AM) UA Mucus [None Seen Few /LPF /LPF] *NA* (12/02/17 7:36 AM) HEMATOLOGY Most recent to 1 oldest [Reference Range]: WBC [3.7-10.4 K/CMM] 6.5 K/CMM (12/02/17 7:36 AM) RBC [4.20-5.40 4.47 M/CMM M/CMM] (12/02/17 7:36 AM) Hgb [12.0-16.0 g/dL] 13.0 g/dL (12/02/17 7:36 AM) Hct [36.0-48.0 %] 37.8 % (12/02/17 7:36 AM) MCV [80.0-98.0 fL] 84.5 fL (12/02/17 7:36 AM) MCH [27.0-31.0 pg] 29.1 pg (12/02/17 7:36 AM) MCHC [32.0-36.0 34.5 g/dL g/dL] (12/02/17 7:36 AM) RDW [11.5-14.5 %] 14.8 % *HI* (12/02/17 7:36 AM) MPV [7.4-10.4 fL] 7.4 fL (12/02/17 7:36 AM) Platelet [133-450 278 K/CMM K/CMM] (12/02/17 7:36 AM) Segs [45.0-75.0 %] 60.2 % (12/02/17 7:36 AM) Lymphocytes 30.7 % [20.0-40.0 %] (12/02/17 7:36 AM) Monocytes [2.0-12.0 4.8 % %] (12/02/17 7:36 AM) Eosinophils [0.0-4.0 2.0 % %] (12/02/17 7:36 AM) Basophils [0.0-1.0 2.3 % %] *HI* (12/02/17 7:36 AM) Segs-Bands # 3.9 K/CMM [1.5-8.1 K/CMM] (12/02/17 7:36 AM) Lymphocytes # 2.0 K/CMM [1.0-5.5 K/CMM] (12/02/17 7:36 AM) Monocytes # [0.0-0.8 0.3 K/CMM K/CMM] (12/02/17 7:36 AM) Eosinophils # 0.1 K/CMM [0.0-0.5 K/CMM] (12/02/17 7:36 AM) Basophils # [0.0-0.2 0.2 K/CMM K/CMM] (12/02/17 7:36 AM) Immunizations No data available for this section Procedures Procedure Date Related Diagnosis Body Site Status Cholecystectomy Completed Cholecystectomy Completed Cholecystectomy Completed Hysterectomy Completed Hysterectomy Completed Insertion of renal artery stent Completed Lithotripsy Completed Lithotripsy of kidney Completed Tubal ligation Completed Social History Social History Type Response Substance Abuse Use: None. Alcohol Past, Type Beer. Smoking Status Never smoker; Type: Cigarettes; Ready to change: No; Concerns about tobacco use in household: No; Exposure to Tobacco Smoke None; Cigarette Smoking Last 365 Days No; Reg Smoking Cessation Counseling Yes entered on: 12/02/17 Assessment and Plan No data available for this section
--- OUTSIDE RECORDS SUMMARY | 2018-11-10 00:09 | XMS REPORT | Summary of Care ---
Author Author [facility] Organization [facility] Address Unknown Phone Unavailable Encounter BELIA Johnson(YANY) [id number] Date(s): 02/22/18 - 02/22/18 [facility] [address] [place] [address]- [phone] Encounter Diagnosis Acute constipation (Discharge Diagnosis) - 02/22/18 Abdominal pain, acute (Discharge Diagnosis) - 02/22/18 Urinary tract infection, site not specified (Final) - 05/02/18 Constipation, unspecified (Final) - Allergy status to narcotic agent status (Final) - Discharge Disposition: Home or Self Care Attending Physician: Danyel Forte MD Vital Signs Most recent to 1 2 oldest [Reference Range]: Height 162.56 cm (02/22/18 8:07 AM) Temperature Oral 98 DegF 98.3 DegF [96.4-99.1 DegF] (02/22/18 12:39 PM) (02/22/18 8:07 AM) Blood Pressure 116/79 mmHg 113/71 mmHg [90-140/60-90 mmHg] (02/22/18 12:39 PM) (02/22/18 8:07 AM) Respiratory Rate 18 BRMIN 20 BRMIN [14-20 BRMIN] (02/22/18 12:39 PM) (02/22/18 8:07 AM) Peripheral Pulse 84 bpm 107 bpm Rate [60-100 bpm] (02/22/18 12:39 PM) *HI* (02/22/18 8:07 AM) Weight 100 kg (02/22/18 8:07 AM) Body Mass Index 37.84 m2 (02/22/18 8:07 AM) Problem List Condition Effective Dates Status Health Status Informant Kidney Active stone(Confirmed) Ovarian Resolved cyst(Confirmed) Vaginal bleeding Active problem(Confirmed) Vaginal Active delivery(Confirmed) Allergies, Adverse Reactions, Alerts Substance Reaction Severity Status codeine sulfate Active traMADol1 Active 1Puritis Medications Fleet Enema 133 mL, Route: W[place], Drug Form: SOLN, Dosing Weight 100, kg, ONCE, Start date: 9:54:00 CDT, Stop date: 02/22/18 9:54:00 CDT, For Constipation > 12 years, Pediatric Dosing Start Date: 02/22/18 Stop Date: 02/22/18 Status: Completed ketOROLAC 30 mg, Route: IVP, ONCE, Dosing Weight 100, kg, Priority: STAT, Start date: 01/31 09/16 8:38:00 CDT, Stop date: 02/22/18 8:38:00 CDT Start Date: 02/22/18 Stop Date: 02/22/18 Status: Completed ketOROLAC 30 mg/mL injectable solution 30 mg, Route: IVP, Drug form: INJ, ONCE, Dosing Weight 100, kg, Priority: STAT, Start date: 02/22/18 9:56:00 CDT, Stop date: 02/22/18 9:56:00 CDT Start Date: 02/22/18 Stop Date: 02/22/18 Status: Discontinued lactulose 10 g/15 mL oral syrup 20 gm, 30 ml, Route: PO, Drug form: SYRP, ONCE, Dosing Weight 100, kg, Priority: STAT, Start date: 02/22/18 9:54:00 CDT, Stop date: 02/22/18 9:54:00 CDT Notes: (Same as:Chronulac) Start Date: 02/22/18 Stop Date: 02/22/18 Status: Completed metoclopramide 10 mg, Route: IVP, Drug form: INJ, ONCE, Dosing Weight 100, kg, Priority: STAT, Start date: 02/22/18 8:38:00 CDT, Stop date: 02/22/18 8:38:00 CDT Start Date: 02/22/18 Stop Date: 02/22/18 Status: Completed NS (Bolus) IV 1,000 mL, 1,000 ml/hr, Infuse Over: 1 hr, Route: IV, ONCE, Priority: STAT, Dosin g Weight 100 kg, Start date: 02/22/18 9:53:00 CDT, Stop date: 02/22/18 9:53:00 C DT Start Date: 02/22/18 Stop Date: 02/22/18 Status: Completed NS (Bolus) IV 1,000 mL, 1,000 ml/hr, Infuse Over: 1 hr, Route: IV, ONCE, Priority: STAT, Dosin g Weight 100 kg, Start date: 02/22/18 9:53:00 CDT, Stop date: 02/22/18 9:53:00 C DT Start Date: 02/22/18 Stop Date: 02/22/18 Status: Completed Rocephin 1 gm, Route: IVPB, Drug form: PDR/INJ, ONCE, Dosing Weight 100, kg, Priority: ST AT, Start date: 02/22/18 9:56:00 CDT, Stop date: 02/22/18 9:56:00 CDT, ABX Indic ation: Urinary Tract Infection Start Date: 02/22/18 Stop Date: 02/22/18 Status: Completed Saline Flush 0.9% 10 mL, Route: IVP, Drug Form: INJ, Dosing Weight 100, kg, PRN, PRN Line Flush, S tart date: 02/22/18 8:38:00 CDT, Duration: 30 day, Stop date: 03/24/18 8:37:00 C DT Notes: Same as: BD Posiflush Sterile Start Date: 02/22/18 Stop Date: 02/22/18 Status: Discontinued Results ELECTROLYTES Most recent to 1 oldest [Reference Range]: Sodium Lvl [135-145 143 mEq/L mEq/L] (02/22/18 8:51 AM) Potassium Lvl 4.1 mEq/L [3.5-5.1 mEq/L] (02/22/18 8:51 AM) Chloride Lvl [95-109 108 mEq/L mEq/L] (02/22/18 8:51 AM) CO2 [24-32 mEq/L] 24 mEq/L (02/22/18 8:51 AM) AGAP [10.0-20.0 15.1 mEq/L mEq/L] (02/22/18 8:51 AM) CHEM PANEL Most recent to 1 oldest [Reference Range]: Creatinine Lvl 1.15 mg/dL [0.50-1.40 mg/dL] (02/22/18 8:51 AM) eGFR 60 mL/min/1.73m2 1 *NA* (02/22/18 8:51 AM) BUN [7-22 mg/dL] 13 mg/dL (02/22/18 8:51 AM) B/C Ratio [6-25] 11 (02/22/18 8:51 AM) Glucose Lvl [70-99 104 mg/dL mg/dL] *HI* (02/22/18 8:51 AM) Total Protein 6.9 g/dL [6.4-8.4 g/dL] (02/22/18 8:51 AM) Albumin Lvl [3.5-5.0 3.2 g/dL g/dL] *LOW* (02/22/18 8:51 AM) Globulin [2.7-4.2 3.7 g/dL g/dL] (02/22/18 8:51 AM) A/G Ratio [0.7-1.6] 0.9 (02/22/18 8:51 AM) Calcium Lvl 8.4 mg/dL [8.5-10.5 mg/dL] *LOW* (02/22/18 8:51 AM) ALT [0-65 unit/L] 40 unit/L (02/22/18 8:51 AM) AST [0-37 unit/L] 25 unit/L (02/22/18 8:51 AM) Alk Phos [39-136 104 unit/L unit/L] (02/22/18 8:51 AM) Bili Total [0.2-1.3 0.2 mg/dL mg/dL] (02/22/18 8:51 AM) Lipase Lvl [73-393 97 unit/L unit/L] (02/22/18 8:51 AM) 1Result Comment: The eGFR is calculated [...] [Reference Range]: UA Turbidity [Clear] Marked *ABN* (02/22/18 8:51 AM) UA Color [Yellow] Yellow *NA* (02/22/18 8:51 AM) UA pH [5.0-8.0] 7.0 (02/22/18 8:51 AM) UA Spec Grav 1.012 [<=1.030] (02/22/18 8:51 AM) UA Glucose [Negative Negative mg/dL mg/dL] *NA* (02/22/18 8:51 AM) UA Blood [Negative] Small *ABN* (02/22/18 8:51 AM) UA Ketones [Negative Negative mg/dL mg/dL] *NA* (02/22/18 8:51 AM) UA Protein [Negative Negative mg/dL mg/dL] (02/22/18 8:51 AM) UA Urobilinogen <=1.0 mg/dL [0.1-1.0 mg/dL] *NA* (02/22/18 8:51 AM) UA Bili [Negative] Negative *NA* (02/22/18 8:51 AM) UA Leuk Est Large [Negative] *ABN* (02/22/18 8:51 AM) UA Nitrite Positive [Negative] *ABN* (02/22/18 8:51 AM) UA WBC [0-5 /HPF] >182 /HPF *HI* (02/22/18 8:51 AM) UA RBC [0-2 /HPF] 5 /HPF *HI* (02/22/18 8:51 AM) UA Bacteria [None Many /HPF Seen /HPF] *ABN* (02/22/18 8:51 AM) UA Sq Epi [Few /LPF] Many /LPF *ABN* (02/22/18 8:51 AM) UA Mucus [None Seen Few /LPF /LPF] *NA* (02/22/18 8:51 AM) UA [place] Yeast [None Many /HPF Seen /HPF] *ABN* (02/22/18 8:51 AM) HEMATOLOGY Most recent to 1 oldest [Reference Range]: WBC [3.7-10.4 K/CMM] 8.6 K/CMM (02/22/18 8:51 AM) RBC [4.20-5.40 4.36 M/CMM M/CMM] (02/22/18 8:51 AM) Hgb [12.0-16.0 g/dL] 13.2 g/dL (02/22/18 8:51 AM) Hct [36.0-48.0 %] 38.5 % (02/22/18 8:51 AM) MCV [80.0-98.0 fL] 88.3 fL (02/22/18 8:51 AM) MCH [27.0-31.0 pg] 30.3 pg (02/22/18 8:51 AM) MCHC [32.0-36.0 34.3 g/dL g/dL] (02/22/18 8:51 AM) RDW [11.5-14.5 %] 14.7 % *HI* (02/22/18 8:51 AM) MPV [7.4-10.4 fL] 7.4 fL (02/22/18 8:51 AM) Platelet [133-450 272 K/CMM K/CMM] (02/22/18 8:51 AM) Segs [45.0-75.0 %] 81.2 % *HI* (02/22/18 8:51 AM) Lymphocytes 12.4 % [20.0-40.0 %] *LOW* (02/22/18 8:51 AM) Monocytes [2.0-12.0 4.2 % %] (02/22/18 8:51 AM) Eosinophils [0.0-4.0 1.3 % %] (02/22/18 8:51 AM) Basophils [0.0-1.0 0.9 % %] (02/22/18 8:51 AM) Neutrophils # 7.0 K/CMM [1.5-8.1 K/CMM] (02/22/18 8:51 AM) Lymphocytes # 1.1 K/CMM [1.0-5.5 K/CMM] (02/22/18 8:51 AM) Monocytes # [0.0-0.8 0.4 K/CMM K/CMM] (02/22/18 8:51 AM) Eosinophils # 0.1 K/CMM [0.0-0.5 K/CMM] (02/22/18 8:51 AM) Basophils # [0.0-0.2 0.1 K/CMM K/CMM] (02/22/18 8:51 AM) Microbiology Reports TEST: Culture: Urine STATUS: Auth (Verified) BODY SITE: SOURCE: Urine, Clean Catch COLLECTED DATE/TIME: 02/22/18 8:51 AM FINAL REPORT No Growth Immunizations No data available for this section [...]
--- OUTSIDE RECORDS SUMMARY | 2018-11-10 00:09 | XMS REPORT | Summary of Care ---
Author Author [facility] Organization [facility] Address Unknown Phone Unavailable Encounter BELIA Johnson(YANY) [id number] Date(s): 08/25/17 - 08/25/17 [facility] [address] [place] [address]- Encounter Diagnosis Abdominal pain in male (Discharge Diagnosis) - 08/25/17 Acute vomiting (Discharge Diagnosis) - 08/25/17 Vomiting, unspecified (Final) - 09/01/17 Epigastric pain (Final) - Personal history of nicotine dependence (Final) - Discharge Disposition: Home or Self Care Attending Physician: Danyel Forte MD Vital Signs Most recent to 1 2 oldest [Reference Range]: Height 162.56 cm (08/25/17 10:53 AM) Temperature Oral 98.1 DegF 98.1 DegF [96.4-99.1 DegF] (08/25/17 2:27 PM) (08/25/17 10:53 AM) Blood Pressure 132/89 mmHg 137/89 mmHg [90-140/60-90 mmHg] (08/25/17 2:27 PM) (08/25/17 10:53 AM) Respiratory Rate 18 BRMIN 22 BRMIN [14-20 BRMIN] (08/25/17 2:27 PM) *HI* (08/25/17 10:53 AM) Peripheral Pulse 68 bpm 66 bpm Rate [60-100 bpm] (08/25/17 2:27 PM) (08/25/17 10:53 AM) Weight 100 kg (08/25/17 10:53 AM) Body Mass Index 37.84 m2 (08/25/17 10:53 AM) Problem List Condition Effective Dates Status Health Status Informant Kidney Active stone(Confirmed) Ovarian Resolved cyst(Confirmed) Vaginal bleeding Active problem(Confirmed) Vaginal Active delivery(Confirmed) Allergies, Adverse Reactions, Alerts Substance Reaction Severity Status acetaminophen-codeine1 Mild Active NKDA NKDA - No known drug allergies Active traMADol2 Active 1Puritis 2Puritis Medications Bentyl 20 mg, Route: IM, ONCE, Dosing Weight 100, kg, Start date: 08/25/17 11:06:00 CDT , Stop date: 08/25/17 11:06:00 CDT Start Date: 08/25/17 Stop Date: 08/25/17 Status: Completed ketOROLAC 30 mg, Route: IVP, Drug form: INJ, ONCE, Dosing Weight 100, kg, Priority: STAT, Start date: 08/25/17 12:27:00 CDT, Stop date: 08/25/17 12:27:00 CDT Start Date: 08/25/17 Stop Date: 08/25/17 Status: Completed ketOROLAC 10 mg oral tablet 10 mg=1 tab, PO, Q6H, X 5 day, # 20 tab, 0 Refill(s) Start Date: 08/25/17 Stop Date: 08/30/17 Status: Completed [place] 10/325 oral tablet 1 tab, Route: PO, Drug Form: TAB, Dosing Weight 100, kg, ONCE, STAT, Start date: 08/25/17 13:53:00 CDT, Stop date: 08/25/17 13:53:00 CDT Start Date: 08/25/17 Stop Date: 08/25/17 Status: Completed NS (Bolus) IV 1,000 mL, 1,000 ml/hr, Infuse Over: 1 hr, Route: IV, ONCE, Priority: STAT, [place] g Weight 100 kg, Start date: 08/25/17 11:06:00 CDT, Stop date: 08/25/17 11:06:00 CDT Start Date: 08/25/17 Stop Date: 08/25/17 Status: Completed Reglan 10 mg, Route: IVP, Drug form: INJ, ONCE, Dosing Weight 100, kg, Priority: STAT, Start date: 08/25/17 11:07:00 CDT, Stop date: 08/25/17 11:07:00 CDT Start Date: 08/25/17 Stop Date: 08/25/17 Status: Completed Reglan 10 mg oral tablet 10 mg=1 tab, PO, QID, X 7 day, # 28 tab, 0 Refill(s) Start Date: 08/25/17 Stop Date: 09/01/17 Status: Completed Results ELECTROLYTES Most recent to 1 oldest [Reference Range]: Sodium Lvl [135-145 142 mEq/L mEq/L] (08/25/17 11:16 AM) Potassium Lvl 3.4 mEq/L [3.5-5.1 mEq/L] *LOW* (08/25/17 11:16 AM) Chloride Lvl [95-109 109 mEq/L mEq/L] (08/25/17 11:16 AM) CO2 [24-32 mEq/L] 28 mEq/L (08/25/17 11:16 AM) AGAP [10.0-20.0 8.4 mEq/L mEq/L] *LOW* (08/25/17 11:16 AM) CHEM PANEL Most recent to 1 oldest [Reference Range]: Creatinine Lvl 0.74 mg/dL [0.50-1.40 mg/dL] (08/25/17 11:16 AM) eGFR 103 mL/min/1.73m2 1 *NA* (08/25/17 11:16 AM) BUN [7-22 mg/dL] 9 mg/dL (08/25/17 11:16 AM) B/C Ratio [6-25] 12 (08/25/17 11:16 AM) Glucose Lvl [70-99 110 mg/dL mg/dL] *HI* (08/25/17 11:16 AM) Total Protein 6.0 g/dL [6.4-8.4 g/dL] *LOW* (08/25/17 11:16 AM) Albumin Lvl [3.5-5.0 2.9 g/dL g/dL] *LOW* (08/25/17 11:16 AM) Globulin [2.7-4.2 3.1 g/dL g/dL] (08/25/17 11:16 AM) A/G Ratio [0.7-1.6] 0.9 (08/25/17 11:16 AM) Calcium Lvl 8.3 mg/dL [8.5-10.5 mg/dL] *LOW* (08/25/17 11:16 AM) ALT [0-65 unit/L] 26 unit/L (08/25/17 11:16 AM) AST [0-37 unit/L] 20 unit/L (08/25/17 11:16 AM) Alk Phos [39-136 81 unit/L unit/L] (08/25/17 11:16 AM) Bili Total [0.2-1.3 0.4 mg/dL mg/dL] (08/25/17 11:16 AM) Lipase Lvl [73-393 185 unit/L unit/L] (08/25/17 11:16 AM) 1Result Comment: The eGFR is calculated [...] oldest [Reference Range]: U Preg [Negative] Negative (08/25/17 11:16 AM) URINE AND STOOL Most recent to 1 oldest [Reference Range]: UA Turbidity [Clear] Clear (08/25/17 11:16 AM) UA Color Ltyellow *NA* (08/25/17 11:16 AM) UA pH [5.0-8.0] 7.0 (08/25/17 11:16 AM) UA Spec Grav 1.008 [<=1.030] (08/25/17 11:16 AM) UA Glucose [Negative Negative mg/dL mg/dL] *NA* (08/25/17 11:16 AM) UA Blood [Negative] Negative (08/25/17 11:16 AM) UA Ketones [Negative Negative mg/dL mg/dL] *NA* (08/25/17 11:16 AM) UA Protein [Negative Negative mg/dL mg/dL] (08/25/17 11:16 AM) UA Urobilinogen 2.0 mg/dL [0.1-1.0 mg/dL] *HI* (08/25/17 11:16 AM) UA Bili [Negative] Negative *NA* (08/25/17 11:16 AM) UA Leuk Est Negative [Negative] (08/25/17 11:16 AM) UA Nitrite Negative [Negative] (08/25/17 11:16 AM) UA WBC [0-5 /HPF] <1 /HPF (08/25/17 11:16 AM) UA RBC [0-2 /HPF] 1 /HPF (08/25/17 11:16 AM) UA Sq Epi [Few /LPF] Occasional /LPF *NA* (08/25/17 11:16 AM) HEMATOLOGY Most recent to 1 oldest [Reference Range]: WBC [3.7-10.4 K/CMM] 7.5 K/CMM (08/25/17 11:16 AM) RBC [4.20-5.40 3.84 M/CMM M/CMM] *LOW* (08/25/17 11:16 AM) Hgb [12.0-16.0 g/dL] 11.3 g/dL *LOW* (08/25/17 11:16 AM) Hct [36.0-48.0 %] 33.3 % *LOW* (08/25/17 11:16 AM) MCV [80.0-98.0 fL] 86.6 fL (08/25/17 11:16 AM) MCH [27.0-31.0 pg] 29.4 pg (08/25/17 11:16 AM) MCHC [32.0-36.0 34.0 g/dL g/dL] (08/25/17 11:16 AM) RDW [11.5-14.5 %] 14.0 % (08/25/17 11:16 AM) MPV [7.4-10.4 fL] 7.5 fL (08/25/17 11:16 AM) Platelet [133-450 277 K/CMM K/CMM] (08/25/17 11:16 AM) Segs [45.0-75.0 %] 74.9 % (08/25/17 11:16 AM) Lymphocytes 18.7 % [20.0-40.0 %] *LOW* (08/25/17 11:16 AM) Monocytes [2.0-12.0 4.5 % %] (08/25/17 11:16 AM) Eosinophils [0.0-4.0 1.2 % %] (08/25/17 11:16 AM) Basophils [0.0-1.0 0.7 % %] (08/25/17 11:16 AM) Segs-Bands # 5.7 K/CMM [1.5-8.1 K/CMM] (08/25/17 11:16 AM) Lymphocytes # 1.4 K/CMM [1.0-5.5 K/CMM] (08/25/17 11:16 AM) Monocytes # [0.0-0.8 0.3 K/CMM K/CMM] (08/25/17 11:16 AM) Eosinophils # 0.1 K/CMM [0.0-0.5 K/CMM] (08/25/17 11:16 AM) Basophils # [0.0-0.2 0.1 K/CMM K/CMM] (08/25/17 11:16 AM) Immunizations No data available for this [...]
--- OUTSIDE RECORDS SUMMARY | 2018-11-10 00:09 | XMS REPORT | Summary of Care ---
Author Author [facility] Organization [facility] Address Unknown Phone Unavailable Encounter BELIA Johnson(YANY) [id number] Date(s): 08/06/18 - 08/06/18 [facility] [address] [place] [address]- Encounter Diagnosis Acute right-sided back pain (Discharge Diagnosis) - 08/06/18 Discharge Disposition: Home or Self Care Attending Physician: Feliz De La Cruz DO Vital Signs Most recent to 1 2 oldest [Reference Range]: Height 162.56 cm (08/06/18 8:07 AM) Temperature Oral 98.4 DegF 98.7 DegF [96.4-99.1 DegF] (08/06/18 12:10 PM) (08/06/18 8:07 AM) Blood Pressure 136/78 mmHg 131/81 mmHg [90-140/60-90 mmHg] (08/06/18 12:10 PM) (08/06/18 8:07 AM) Respiratory Rate 16 BRMIN 16 BRMIN [14-20 BRMIN] (08/06/18 12:10 PM) (08/06/18 8:07 AM) Peripheral Pulse 89 bpm 92 bpm Rate [60-100 bpm] (08/06/18 12:10 PM) (08/06/18 8:07 AM) Weight 100 kg (08/06/18 8:07 AM) Body Mass Index 37.84 m2 (08/06/18 8:07 AM) Problem List Condition Effective Dates Status Health Status Informant Kidney Active stone(Confirmed) Ovarian Resolved cyst(Confirmed) Vaginal bleeding Active problem(Confirmed) Vaginal Active delivery(Confirmed) Allergies, Adverse Reactions, Alerts Substance Reaction Severity Status codeine sulfate Active traMADol1 Active 1Puritis Medications Pyridium 100 mg, 1 tab, Route: PO, Drug form: TAB, ONCE, Dosing Weight 100, kg, Priority: STAT, Start date: 08/06/18 9:15:00 [employer]IDENT PROGRAM SPECIALIST, Stop date: 08/06/18 9:15:00 RESIDENT PROGRAM SPECIALIST Notes: Give with meals.(Same as: Pyridium) Start Date: 08/06/18 Stop Date: 08/06/18 Status: Completed Results ELECTROLYTES Most recent to 1 oldest [Reference Range]: Sodium Lvl [135-145 143 mEq/L mEq/L] (08/06/18 9:30 AM) Potassium Lvl 4.2 mEq/L [3.5-5.1 mEq/L] (08/06/18 9:30 AM) Chloride Lvl [95-109 112 mEq/L mEq/L] *HI* (08/06/18 9:30 AM) CO2 [24-32 mEq/L] 27 mEq/L (08/06/18 9:30 AM) AGAP [10.0-20.0 8.2 mEq/L mEq/L] *LOW* (08/06/18 9:30 AM) CHEM PANEL Most recent to 1 oldest [Reference Range]: Creatinine Lvl 0.86 mg/dL [0.50-1.40 mg/dL] (08/06/18 9:30 AM) eGFR 84 mL/min/1.73m2 1 *NA* (08/06/18 9:30 AM) BUN [7-22 mg/dL] 9 mg/dL (08/06/18 9:30 AM) B/C Ratio [6-25] 10 (08/06/18 9:30 AM) Glucose Lvl [70-99 95 mg/dL mg/dL] (08/06/18 9:30 AM) Total Protein 6.1 g/dL [6.4-8.4 g/dL] *LOW* (08/06/18 9:30 AM) Albumin Lvl [3.5-5.0 3.1 g/dL g/dL] *LOW* (08/06/18 9:30 AM) Globulin [2.7-4.2 3.0 g/dL g/dL] (08/06/18 9:30 AM) A/G Ratio [0.7-1.6] 1.0 (08/06/18 9:30 AM) Calcium Lvl 8.3 mg/dL [8.5-10.5 mg/dL] *LOW* (08/06/18 9:30 AM) ALT [0-65 unit/L] 33 unit/L (08/06/18 9:30 AM) AST [0-37 unit/L] 20 unit/L (08/06/18 9:30 AM) Alk Phos [39-136 94 unit/L unit/L] (08/06/18 9:30 AM) Bili Total [0.2-1.3 0.5 mg/dL mg/dL] (08/06/18 9:30 AM) Lipase Lvl [73-393 182 unit/L unit/L] (08/06/18 9:30 AM) 1Result Comment: The eGFR is calculated [...] oldest [Reference Range]: UA Turbidity [Clear] Clear (08/06/18 9:30 AM) UA Color Ltyellow *NA* (08/06/18 9:30 AM) UA pH [5.0-8.0] 5.0 (08/06/18 9:30 AM) UA Spec Grav 1.004 [<=1.030] (08/06/18 9:30 AM) UA Glucose Negative [Negative] *NA* (08/06/18 9:30 AM) UA Blood [Negative] Negative (08/06/18 9:30 AM) UA Ketones Negative [Negative] *NA* (08/06/18 9:30 AM) UA Protein Negative [Negative] (08/06/18 9:30 AM) UA Urobilinogen <=1.0 mg/dL [0.1-1.0 mg/dL] *NA* (08/06/18 9:30 AM) UA Bili [Negative] Negative *NA* (08/06/18 9:30 AM) UA Leuk Est Negative [Negative] (08/06/18 9:30 AM) UA Nitrite Negative [Negative] (08/06/18 9:30 AM) UA WBC [0-5 /HPF] <1 /HPF (08/06/18 9:30 AM) UA RBC [0-2 /HPF] 1 /HPF (08/06/18 9:30 AM) UA Sq Epi [Few /LPF] Moderate /LPF *ABN* (08/06/18 9:30 AM) HEMATOLOGY Most recent to 1 oldest [Reference Range]: WBC [3.7-10.4 K/CMM] 5.3 K/CMM (08/06/18 9:30 AM) RBC [4.20-5.40 4.15 M/CMM M/CMM] *LOW* (08/06/18 9:30 AM) Hgb [12.0-16.0 g/dL] 12.1 g/dL (08/06/18 9:30 AM) Hct [36.0-48.0 %] 35.8 % *LOW* (08/06/18 9:30 AM) MCV [80.0-98.0 fL] 86.2 fL (08/06/18 9:30 AM) MCH [27.0-31.0 pg] 29.2 pg (08/06/18 9:30 AM) MCHC [32.0-36.0 33.9 g/dL g/dL] (08/06/18 9:30 AM) RDW [11.5-14.5 %] 14.1 % (08/06/18 9:30 AM) MPV [7.4-10.4 fL] 7.1 fL *LOW* (08/06/18 9:30 AM) Platelet [133-450 292 K/CMM K/CMM] (08/06/18 9:30 AM) Segs [45.0-75.0 %] 69.5 % (08/06/18 9:30 AM) Lymphocytes 22.9 % [20.0-40.0 %] (08/06/18 9:30 AM) Monocytes [2.0-12.0 4.4 % %] (08/06/18 9:30 AM) Eosinophils [0.0-4.0 2.1 % %] (08/06/18 9:30 AM) Basophils [0.0-1.0 1.1 % %] *HI* (08/06/18 9:30 AM) Neutrophils # 3.7 K/CMM [1.5-8.1 K/CMM] (08/06/18 9:30 AM) Lymphocytes # 1.2 K/CMM [1.0-5.5 K/CMM] (08/06/18 9:30 AM) Monocytes # [0.0-0.8 0.2 K/CMM K/CMM] (08/06/18 9:30 AM) Eosinophils # 0.1 K/CMM [0.0-0.5 K/CMM] (08/06/18 9:30 AM) Basophils # [0.0-0.2 0.1 K/CMM K/CMM] (08/06/18 9:30 AM) Immunizations No data available for this [...] Reg Smoking Cessation Counseling No entered on: 08/06/18 Assessment and Plan No data available for this section
--- OUTSIDE RECORDS SUMMARY | 2018-11-10 00:09 | XMS REPORT | Summary of Care ---
Author Author [facility] Organization [facility] Address Unknown Phone Unavailable Encounter BELIA Johnson(YANY) [id number] Date(s): 03/03/18 - 03/03/18 [facility] [address] [place] [address]- Discharge Disposition: Left Without Being Seen Attending Physician: Amy Butcher MD Vital Signs Most recent to 1 oldest [Reference Range]: Height 162.56 cm (03/03/18 10:30 AM) Temperature Oral 98.2 DegF [96.4-99.1 DegF] (03/03/18 10:30 AM) Blood Pressure 102/76 mmHg [90-140/60-90 mmHg] (03/03/18 10:30 AM) Respiratory Rate 17 BRMIN [14-20 BRMIN] (03/03/18 10:30 AM) Peripheral Pulse 96 bpm Rate [60-100 bpm] (03/03/18 10:30 AM) Weight 104.091 kg (03/03/18 10:30 AM) Body Mass Index 39.39 m2 (03/03/18 10:30 AM) Problem List Condition Effective Dates Status Health Status Informant Kidney Active stone(Confirmed) Ovarian Resolved cyst(Confirmed) Vaginal bleeding Active problem(Confirmed) Vaginal Active delivery(Confirmed) Allergies, Adverse Reactions, Alerts Substance Reaction Severity Status codeine sulfate Active traMADol1 Active 1Puritis Medications No data available for this section Results No data available for this section Immunizations No data available for this section [...]
--- OUTSIDE RECORDS SUMMARY | 2018-11-10 00:09 | XMS REPORT | Summary of Care ---
Author Author [facility] Organization [facility] Address Unknown Phone Unavailable Encounter BELIA Johnson(YANY) [id number] Date(s): 03/01/18 - 03/01/18 [facility] [address] [place] [address]- [phone] Encounter Diagnosis Post-operative pain (Discharge Diagnosis) - 03/01/18 Other acute postprocedural pain (Final) - 03/05/18 Generalized abdominal pain (Final) - Other fci (current) drug therapy (Final) - Personal history of urinary calculi (Final) - Acquired absence of other specified parts of digestive tract (Final) - Acquired absence of both cervix and uterus (Final) - Discharge Disposition: Home or Self Care Attending Physician: Delta Mason DO Vital Signs Most recent to 1 2 oldest [Reference Range]: Temperature Oral 97.8 DegF [96.4-99.1 DegF] (03/01/18 5:25 PM) Blood Pressure 115/81 mmHg 124/70 mmHg [90-140/60-90 mmHg] (03/01/18 8:51 PM) (03/01/18 5:25 PM) Respiratory Rate 18 BRMIN 18 BRMIN [14-20 BRMIN] (03/01/18 8:51 PM) (03/01/18 5:25 PM) Peripheral Pulse 78 bpm 69 bpm Rate [60-100 bpm] (03/01/18 8:51 PM) (03/01/18 5:25 PM) Problem List Condition Effective Dates Status Health [...] # 40 tab, 0 Refill(s) Start Date: 03/01/18 Stop Date: 03/11/18 Status: Completed morphine Sulfate 4 mg, 1 mL, Route: IVP, Drug form: SOLN, ONCE, Dosing Weight 100, kg, Priority: STAT, Start date: 03/01/18 19:24:00 CDT, Stop date: 03/01/18 19:24:00 CDT Notes: (Same as:MORPhine Sulfate) Start Date: 03/01/18 Stop Date: 03/01/18 Status: Completed morphine Sulfate 2 mg, 0.5 mL, Route: IVP, Drug form: SOLN, ONCE, Dosing Weight 100, kg, Priority : STAT, Start date: 03/01/18 20:51:00 CDT, Stop date: 03/01/18 20:51:00 CDT Notes: (Same as:MORPhine Sulfate) Start Date: 03/01/18 Stop Date: 03/01/18 Status: Completed Zofran ODT 4 mg, 1 tab, Route: PO, Drug form: TABDIS, ONCE, Dosing Weight 100, kg, Priority : STAT, Start date: 03/01/18 19:25:00 CDT, Stop date: 03/01/18 19:25:00 CDT Notes: (Same as: Zofran ODT) Start Date: 03/01/18 Stop Date: 03/01/18 Status: Completed Results ELECTROLYTES Most recent to 1 oldest [Reference Range]: Sodium Lvl [135-145 144 mEq/L mEq/L] (03/01/18 7:13 PM) Potassium Lvl 4.3 mEq/L [3.5-5.1 mEq/L] (03/01/18 7:13 PM) Chloride Lvl [95-109 107 mEq/L mEq/L] (03/01/18 7:13 PM) CO2 [24-32 mEq/L] 26 mEq/L (03/01/18 7:13 PM) AGAP [10.0-20.0 15.3 mEq/L mEq/L] (03/01/18 7:13 PM) CHEM PANEL Most recent to 1 oldest [Reference Range]: Creatinine Lvl 0.97 mg/dL [0.50-1.40 mg/dL] (03/01/18 7:13 PM) eGFR 73 mL/min/1.73m2 1 *NA* (03/01/18:13 PM) BUN [7-22 mg/dL] 19 mg/dL (03/01/18 7:13 PM) B/C Ratio [6-25] 20 (03/01/18 7:13 PM) Glucose Lvl [70-99 84 mg/dL mg/dL] (03/01/18 PM) Total Protein 6.7 g/dL [6.4-8.4 g/dL] (03/01/18:13 PM) Albumin Lvl [3.5-5.0 3.3 g/dL g/dL] *LOW* (03/01/18 PM) Globulin [2.7-4.2 3.4 g/dL g/dL] (03/01/18:13 PM) A/G Ratio [0.7-1.6] 1.0 (03/01/18: PM) Calcium Lvl 8.7 mg/dL [8.5-10.5 mg/dL] (03/01/18 7:13 PM) ALT [0-65 unit/L] 28 unit/L (03/01/18:13 PM) AST [0-37 unit/L] 20 unit/L (03/01/18:13 PM) Alk Phos [39-136 106 unit/L unit/L] (03/01/18:13 PM) Bili Total [0.2-1.3 0.2 mg/dL mg/dL] (03/01/18:13 PM) Lipase Lvl [73-393 130 unit/L unit/L] (03/01/18:13 PM) 1Result Comment: The eGFR is calculated [...] [Reference Range]: UA Turbidity [Clear] Marked *ABN* (03/01/18 7:58 PM) UA Color [Yellow] Yellow *NA* (03/01/18 7:58 PM) UA pH [5.0-8.0] 5.0 (03/01/18 7:58 PM) UA Spec Grav 1.019 [<=1.030] (03/01/18 7:58 PM) UA Glucose [Negative Negative mg/dL mg/dL] *NA* (03/01/18 7:58 PM) UA Blood [Negative] Negative (03/01/18 7:58 PM) UA Ketones [Negative Negative mg/dL mg/dL] *NA* (03/01/18 7:58 PM) UA Protein [Negative Negative mg/dL mg/dL] (03/01/18 7:58 PM) UA Urobilinogen <=1.0 mg/dL [0.1-1.0 mg/dL] *NA* (03/01/18 7:58 PM) UA Bili [Negative] Negative *NA* (03/01/18 7:58 PM) UA Leuk Est Negative [Negative] (03/01/18 7:58 PM) UA Nitrite Negative [Negative] (03/01/18 7:58 PM) UA WBC [0-5 /HPF] 5 /HPF (03/01/18 7:58 PM) UA RBC [0-2 /HPF] 12 /HPF *HI* (03/01/18 7:58 PM) UA Bacteria [None Many /HPF Seen /HPF] *ABN* (03/01/18 7:58 PM) UA Sq Epi [Few /LPF] Many /LPF *ABN* (03/01/18 7:58 PM) UA Mucus [None Seen Moderate /LPF /LPF] *ABN* (03/01/18 7:58 PM) HEMATOLOGY Most recent to 1 oldest [Reference Range]: WBC [3.7-10.4 K/CMM] 8.8 K/CMM (03/01/18 7:13 PM) RBC [4.20-5.40 4.24 M/CMM M/CMM] (03/01/18 7:13 PM) Hgb [12.0-16.0 g/dL] 12.5 g/dL (03/01/18 7:13 PM) Hct [36.0-48.0 %] 36.9 % (03/01/18 7:13 PM) MCV [80.0-98.0 fL] 86.9 fL (03/01/18 7:13 PM) MCH [27.0-31.0 pg] 29.4 pg (03/01/18 7:13 PM) MCHC [32.0-36.0 33.8 g/dL g/dL] (03/01/18 7:13 PM) RDW [11.5-14.5 %] 14.6 % *HI* (03/01/18 7:13 PM) MPV [7.4-10.4 fL] 7.0 fL *LOW* (03/01/18 7:13 PM) Platelet [133-450 295 K/CMM K/CMM] (03/01/18 7:13 PM) Segs [45.0-75.0 %] 71.2 % (03/01/18 7:13 PM) Lymphocytes 20.4 % [20.0-40.0 %] (03/01/18 7:13 PM) Monocytes [2.0-12.0 5.5 % %] (03/01/18 7:13 PM) Eosinophils [0.0-4.0 2.2 % %] (03/01/18 7:13 PM) Basophils [0.0-1.0 0.7 % %] (03/01/18 7:13 PM) Neutrophils # 6.3 K/CMM [1.5-8.1 K/CMM] (03/01/18 7:13 PM) Lymphocytes # 1.8 K/CMM [1.0-5.5 K/CMM] (03/01/18 7:13 PM) Monocytes # [0.0-0.8 0.5 K/CMM K/CMM] (03/01/18 7:13 PM) Eosinophils # 0.2 K/CMM [0.0-0.5 K/CMM] (03/01/18 7:13 PM) Basophils # [0.0-0.2 0.1 K/CMM K/CMM] (03/01/18 7:13 PM) Immunizations No data available for this [...]
--- OUTSIDE RECORDS SUMMARY | 2018-11-10 00:09 | XMS REPORT | Summary of Care ---
Author Author [facility] Organization [facility] Address Unknown Phone Unavailable Encounter BELIA Johnson(YANY) [id number] Date(s): 10/14/18 - 10/14/18 [facility] [address] [place] [address]- Encounter Diagnosis Abdominal pain, acute (Discharge Diagnosis) - 10/14/18 Discharge Disposition: Home or Self Care Attending Physician: Danyel Forte MD Vital Signs 1 2 3 Most recent to oldest [Reference Range]: 162.56 cm (10/14/18 7:50 AM) Height 98.3 DegF (10/14/18 7:50 AM) Temperature Oral [96.4-99.1 DegF] 112/62 mmHg (10/14/18 11:01 AM) 108/80 mmHg (10/14/18 9:00 AM) 117/74 mmHg (10/14/18 7:50 AM) Blood Pressure [90-140/60-90 mmHg] 17 BRMIN (10/14/18 11:01 AM) 18 BRMIN (10/14/18 9:00 AM) 21 BRMIN *HI* (10/14/18 8:23 AM) Respiratory Rate [14-20 BRMIN] 110 bpm *HI* (10/14/18 7:50 AM) Peripheral Pulse Rate [60-100 bpm] 100 kg (10/14/18 7:50 AM) Weight 37.84 m2 (10/14/18 7:50 AM) Body Mass Index Problem List Condition Effective Dates Status Health Status Informant Kidney Active stone(Confirmed) Ovarian Resolved cyst(Confirmed) Vaginal bleeding Active problem(Confirmed) Vaginal Active delivery(Confirmed) Allergies, Adverse Reactions, Alerts Substance Reaction Severity Status codeine sulfate Active traMADol1 Active 1Puritis Medications ketOROLAC 30 mg, 1 mL, Route: IVP, Drug form: INJ, ONCE, Dosing Weight 100, kg, Priority: STAT, Start date: 10/14/18 8:23:00 CDT, Stop date: 10/14/18 8:23:00 CDT Notes: (Same as:Toradol) IV bolus must be given >15 seconds. Give IM administration slowly and deeply into the muscle.Not for use > 4 days MEDICATION WASTE Product Size: 30 mgProduct Wasted: ___ mg Start Date: 10/14/18 Stop Date: 10/14/18 Status: Completed Motrin 600 mg oral tablet 600 mg=1 tab, PO, Q6H, take with food, X 7 day, # 28 tab, 0 Refill(s) Start Date: 10/14/18 Stop Date: 10/21/18 Status: Ordered ondansetron 4 mg, 2 mL, Route: IVP, Drug form: INJ, ONCE, Dosing Weight 100, kg, Priority: S TAT, Start date: 10/14/18 8:23:00 CDT, Stop date: 10/14/18 8:23:00 CDT Notes: (Same as: Zofran) MEDICATION WASTE Product Size: 4 mgProduct Was luisito: ___ mg Start Date: 10/14/18 Stop Date: 10/14/18 Status: Completed Phenergan 25 mg oral tablet 25 mg=1 tab, PO, Q6H, PRN Nausea, # 15 tab, 0 Refill(s) Start Date: 10/14/18 Stop Date: 10/18/18 Status: Ordered Sodium Chloride 0.9% (Bolus) IV 1,000 mL, 1000 ml/hr, Infuse Over: 1 hr, Route: IV, 1,000, Drug form: INJ, ONCE, Priority: STAT, Dosing Weight 100 kg, Start date: 10/14/18 8:23:00 CDT, Stop da te: 10/14/18 8:23:00 CDT Start Date: 10/14/18 Stop Date: 10/14/18 Status: Completed Results Most recent to 1 oldest [Reference Range]: Neutrophils # 4.1 K/CMM [1.5-8.1 K/CMM] (10/14/18 8:21 AM) Lymphocytes # 1.5 K/CMM [1.0-5.5 K/CMM] (10/14/18 8:21 AM) Monocytes # [0.0-0.8 0.4 K/CMM K/CMM] (10/14/18 8: AM) Eosinophils # 0.1 K/CMM [0.0-0.5 K/CMM] (10/14/18 8:21 AM) eGFR 76 mL/min/1.73m2 1 *NA* (10/14/18) A/G Ratio [0.7-1.6] 0.9 (10/14/18: AM) Albumin Lvl [3.5-5.0 3.2 g/dL g/dL] *LOW* (10/14/18 AM) Alk Phos [39-136 99 unit/L unit/L] (10/14/18: AM) ALT [0-65 unit/L] 29 unit/L (10/14/18: AM) AGAP [10.0-20.0 13.8 mEq/L mEq/L] (10/14/18 AM) AST [0-37 unit/L] 11 unit/L (10/14/18 8: AM) B/C Ratio [6-25] 11 (10/14/18: AM) Basophils [0.0-1.0 0.7 % %] (10/14/18: AM) BUN [7-22 mg/dL] 10 mg/dL (10/14/18: AM) Calcium Lvl 8.5 mg/dL [8.5-10.5 mg/dL] (10/14/18: AM) Chloride Lvl [95-109 110 mEq/L mEq/L] *HI* (10/14/18: AM) CO2 [24-32 mEq/L] 20 mEq/L *LOW* (10/14/18 AM) Creatinine Lvl 0.94 mg/dL [0.50-1.40 mg/dL] (10/14/18 8: AM) Eosinophils [0.0-4.0 1.9 % %] (10/14/18 AM) Globulin [2.7-4.2 3.5 g/dL g/dL] (10/14/18 AM) Glucose Lvl [70-99 132 mg/dL mg/dL] *HI* (10/14/18) Hct [36.0-48.0 %] 37.3 % (10/14/18) Hgb [12.0-16.0 g/dL] 12.9 g/dL (10/14/18 AM) Potassium Lvl 3.8 mEq/L [3.5-5.1 mEq/L] (10/14/18 AM) Lipase Lvl [73-393 145 unit/L unit/L] (10/14/18) Lymphocytes 24.7 % [20.0-40.0 %] (10/14/18) MCH [27.0-31.0 pg] 30.0 pg (10/14/18) MCHC [32.0-36.0 34.7 g/dL g/dL] (10/14/18 AM) MCV [80.0-98.0 fL] 86.5 fL (10/14/18 AM) Monocytes [2.0-12.0 6.3 % %] (10/14/18 AM) MPV [7.4-10.4 fL] 7.6 fL (10/14/18 AM) Sodium Lvl [135-145 140 mEq/L mEq/L] (10/14/18) Platelet [133-450 245 K/CMM K/CMM] (10/14/18 AM) Segs [45.0-75.0 %] 66.4 % (10/14/18 AM) Total Protein 6.7 g/dL [6.4-8.4 g/dL] (10/14/18 AM) RBC [4.20-5.40 4.31 M/CMM M/CMM] (10/14/18 AM) RDW [11.5-14.5 %] 14.7 % *HI* (5/16/19 8:21 AM) S Preg [Negative] Negative *NA* (10/14/18 8:21 AM) Bili Total [0.2-1.3 0.6 mg/dL mg/dL] (10/14/18 8:21 AM) UA Bili [Negative] Negative *NA* (10/14/18 8:21 AM) UA Blood [Negative] Negative (10/14/18 8:21 AM) UA Color [Yellow] Yellow *NA* (10/14/18 8:21 AM) UA Glucose Negative [Negative] (10/14/18 8:21 AM) UA Ketones Negative [Negative] *NA* (10/14/18 8:21 AM) UA Leuk Est Trace [Negative] *ABN* (10/14/18 8:21 AM) UA Mucus [None Seen Few /LPF /LPF] *NA* (10/14/18 8:21 AM) UA Nitrite Negative [Negative] (10/14/18 8:21 AM) UA pH [5.0-8.0] 5.5 (10/14/18 8:21 AM) UA Protein Negative [Negative] (10/14/18 8:21 AM) UA RBC [0-2 /HPF] 2 /HPF (10/14/18 8:21 AM) UA Spec Grav 1.015 [<=1.030] (10/14/18 8:21 AM) UA Sq Epi [Few /LPF] Many /LPF *ABN* (10/14/18 8:21 AM) UA Turbidity [Clear] Clear (10/14/18 8:21 AM) UA Urobilinogen 0.2 EU/dL [0.1-1.0 EU/dL] (10/14/18 8:21 AM) UA WBC [0-5 /HPF] 4 /HPF (10/14/18 8:21 AM) WBC [3.7-10.4 K/CMM] 6.2 K/CMM (10/14/18 8:21 AM) 1Result Comment: The eGFR is calculated [...] Reg Smoking Cessation Counseling No entered on: 10/14/18 Assessment and Plan No data available for this section
--- OUTSIDE RECORDS SUMMARY | 2018-11-10 00:09 | XMS REPORT | Summary of Care ---
Author Author [facility] Organization [facility] Address Unknown Phone Unavailable Encounter HQ Elizabeth(YANY) [id number] Date(s): 08/04/18 - 08/04/18 [facility] [address] [place] [address]- [phone] Encounter Diagnosis Acute UTI (Discharge Diagnosis) - 08/04/18 Nephrolithiasis (Discharge Diagnosis) - 08/04/18 Discharge Disposition: Home or Self Care Attending Physician: Martinez Babcock MD Vital Signs 1 2 3 Most recent to oldest [Reference Range]: 162.56 cm (08/04/18 7:50 AM) Height 98.2 DegF (08/04/18 10:15 AM) 98.3 DegF (08/04/18 9:18 AM) 97.8 DegF (08/04/18 7:50 AM) Temperature Oral [96.4-99.1 DegF] 106/68 mmHg (08/04/18 10:15 AM) 116/85 mmHg (08/04/18 9:18 AM) 152/100 mmHg *HI* (08/04/18 7:50 AM) Blood Pressure [90-140/60-90 mmHg] 18 BRMIN (08/04/18 10:15 AM) 18 BRMIN (08/04/18 9:18 AM) 18 BRMIN (08/04/18 7:50 AM) Respiratory Rate [14-20 BRMIN] 68 bpm (08/04/18 10:15 AM) 74 bpm (08/04/18 9:18 AM) 102 bpm *HI* (08/04/18 7:50 AM) Peripheral Pulse Rate [60-100 bpm] 100 kg (08/04/18 7:50 AM) Weight 37.84 m2 (08/04/18 7:50 AM) Body Mass Index Problem List Condition Effective Dates Status Health Status Informant Kidney Active stone(Confirmed) Ovarian Resolved cyst(Confirmed) Vaginal bleeding Active problem(Confirmed) Vaginal Active delivery(Confirmed) Allergies, Adverse Reactions, Alerts Substance Reaction Severity Status codeine sulfate Active traMADol1 Active 1Puritis Medications cefTRIAXone 1 gm, Route: IVPB, ONCE, Dosing Weight 100, kg, Priority: STAT, Start date: 11/17 8:54:00 BARBER OR BEAUTY SHOP MANAGER, Stop date: 08/04/18 8:54:00 BARBER OR BEAUTY SHOP MANAGER, ABX Indication: Genital Tract Infection Start Date: 08/04/18 Stop Date: 08/04/18 Status: Completed Flomax 0.4 mg oral capsule 0.4 mg=1 cap, PO, Daily, # 7 cap, 0 Refill(s) Start Date: 08/04/18 Stop Date: 08/11/18 Status: Ordered Keflex 500 mg oral capsule 500 mg=1 cap, PO, Q8H, X 10 day, # 30 cap, 0 Refill(s) Start Date: 08/04/18 Stop Date: 08/14/18 Status: Ordered ketOROLAC 15 mg, Route: IVP, Drug form: INJ, ONCE, Dosing Weight 100, kg, Priority: STAT, Start date: 08/04/18 8:03:00 BARBER OR BEAUTY SHOP MANAGER, Stop date: 08/04/18 8:03:00 BARBER OR BEAUTY SHOP MANAGER Start Date: 08/04/18 Stop Date: 08/04/18 Status: Completed morphine Sulfate 4 mg, Route: IVP, ONCE, Dosing Weight 100, kg, Priority: STAT, Start date: 08/04 8:54:00 BARBER OR BEAUTY SHOP MANAGER, Stop date: 08/04/18 8:54:00 BARBER OR BEAUTY SHOP MANAGER Start Date: 08/04/18 Stop Date: 08/04/18 Status: Completed morphine Sulfate 4 mg, Route: IVP, ONCE, Dosing Weight 100, kg, Priority: STAT, Start date: 08/04 9:33:00 BARBER OR BEAUTY SHOP MANAGER, Stop date: 08/04/18 9:33:00 BARBER OR BEAUTY SHOP MANAGER Start Date: 08/04/18 Stop Date: 08/04/18 Status: Completed ondansetron 4 mg, Route: IVP, Drug form: INJ, ONCE, Dosing Weight 100, kg, Priority: STAT, S tart date: 08/04/18 8:54:00 BARBER OR BEAUTY SHOP MANAGER, Stop date: 08/04/18 8:54:00 BARBER OR BEAUTY SHOP MANAGER Start Date: 08/04/18 Stop Date: 08/04/18 Status: Completed ondansetron 4 mg, Route: IVP, Drug form: INJ, ONCE, Dosing Weight 100, kg, Priority: STAT, S tart date: 08/04/18 8:03:00 BARBER OR BEAUTY SHOP MANAGER, Stop date: 08/04/18 8:03:00 BARBER OR BEAUTY SHOP MANAGER Start Date: 08/04/18 Stop Date: 08/04/18 Status: Completed Sodium Chloride 0.9% (Bolus) IV 1,000 mL, Infuse Over: 1 hr, Route: IV, ONCE, Priority: STAT, Dosing Weight 100 kg, Start date: 08/04/18 8:03:00 BARBER OR BEAUTY SHOP MANAGER, Stop date: 08/04/18 8:03:00 BARBER OR BEAUTY SHOP MANAGER Start Date: 08/04/18 Stop Date: 08/04/18 Status: Completed Zofran 4 mg oral tablet 4 mg=1 tab, PO, Q6H, PRN Nausea/Vomiting, # 12 tab, 0 Refill(s) Start Date: 08/04/18 Stop Date: 08/07/18 Status: Ordered Results ELECTROLYTES Most recent to 1 oldest [Reference Range]: Sodium Lvl [135-145 141 mEq/L mEq/L] (08/04/18 8:11 AM) Potassium Lvl 3.9 mEq/L [3.5-5.1 mEq/L] (08/04/18 8:11 AM) Chloride Lvl [95-109 111 mEq/L mEq/L] *HI* (08/04/18 8:11 AM) CO2 [24-32 mEq/L] 23 mEq/L *LOW* (08/04/18 8:11 AM) AGAP [10.0-20.0 10.9 mEq/L mEq/L] (08/04/18 8:11 AM) CHEM PANEL Most recent to 1 oldest [Reference Range]: Creatinine Lvl 0.98 mg/dL [0.50-1.40 mg/dL] (08/04/18 8:11 AM) eGFR 73 mL/min/1.73m2 1 *NA* (08/04/18 8:11 AM) BUN [7-22 mg/dL] 14 mg/dL (08/04/18 8:11 AM) B/C Ratio [6-25] 14 (3/6/19 8:11 AM) Glucose Lvl [70-99 110 mg/dL mg/dL] *HI* (08/04/18 8:11 AM) Total Protein 6.7 g/dL [6.4-8.4 g/dL] (08/04/18 8:11 AM) Albumin Lvl [3.5-5.0 3.4 g/dL g/dL] *LOW* (08/04/18:11 AM) Globulin [2.7-4.2 3.3 g/dL g/dL] (08/04/18 8:11 AM) A/G Ratio [0.7-1.6] 1.0 (08/04/18 8:11 AM) Calcium Lvl 8.1 mg/dL [8.5-10.5 mg/dL] *LOW* (08/04/18 8:11 AM) ALT [0-65 unit/L] 27 unit/L (08/04/18 8:11 AM) AST [0-37 unit/L] 16 unit/L (08/04/18 8:11 AM) Alk Phos [39-136 99 unit/L unit/L] (08/04/18 8:11 AM) Bili Total [0.2-1.3 0.3 mg/dL mg/dL] (08/04/18 8:11 AM) Lipase Lvl [73-393 136 unit/L unit/L] (08/04/18 8:11 AM) 1Result Comment: The eGFR is calculated [...] [Reference Range]: UA Turbidity [Clear] Slight *ABN* (08/04/18 8:11 AM) UA Color [Yellow] Yellow *NA* (08/04/18 8:11 AM) UA pH [5.0-8.0] 6.0 (08/04/18 8:11 AM) UA Spec Grav 1.011 [<=1.030] (08/04/18 8:11 AM) UA Glucose Negative [Negative] *NA* (08/04/18 8:11 AM) UA Blood [Negative] Negative (08/04/18 8:11 AM) UA Ketones Negative [Negative] *NA* (08/04/18 8:11 AM) UA Protein Negative [Negative] (08/04/18 8:11 AM) UA Urobilinogen <=1.0 mg/dL [0.1-1.0 mg/dL] *NA* (08/04/18 8:11 AM) UA Bili [Negative] Negative *NA* (08/04/18 8:11 AM) UA Leuk Est Moderate [Negative] *ABN* (08/04/18 8:11 AM) UA Nitrite Positive [Negative] *ABN* (08/04/18 8:11 AM) UA WBC [0-5 /HPF] 45 /HPF *HI* (08/04/18 8:11 AM) UA RBC [0-2 /HPF] 2 /HPF (08/04/18 8:11 AM) UA Bacteria [None Many /HPF Seen /HPF] *ABN* (08/04/18 8:11 AM) UA Sq Epi [Few /LPF] Moderate /LPF *ABN* (08/04/18 8:11 AM) UA Hyal Cast [0-2 1 /LPF /LPF] (08/04/18 8:11 AM) UA Mucus [None Seen Few /LPF /LPF] *NA* (08/04/18 8:11 AM) HEMATOLOGY Most recent to 1 oldest [Reference Range]: WBC [3.7-10.4 K/CMM] 5.4 K/CMM (08/04/18 8:11 AM) RBC [4.20-5.40 4.29 M/CMM M/CMM] (08/04/18 8:11 AM) Hgb [12.0-16.0 g/dL] 12.8 g/dL (08/04/18 8:11 AM) Hct [36.0-48.0 %] 37.0 % (08/04/18 8:11 AM) MCV [80.0-98.0 fL] 86.3 fL (08/04/18 8:11 AM) MCH [27.0-31.0 pg] 30.0 pg (08/04/18 8:11 AM) MCHC [32.0-36.0 34.7 g/dL g/dL] (08/04/18 8:11 AM) RDW [11.5-14.5 %] 14.1 % (08/04/18 8:11 AM) MPV [7.4-10.4 fL] 7.0 fL *LOW* (08/04/18 8:11 AM) Platelet [133-450 281 K/CMM K/CMM] (08/04/18 8:11 AM) Segs [45.0-75.0 %] 63.0 % (08/04/18 8:11 AM) Lymphocytes 28.8 % [20.0-40.0 %] (08/04/18 8:11 AM) Monocytes [2.0-12.0 5.1 % %] (08/04/18 8:11 AM) Eosinophils [0.0-4.0 2.0 % %] (08/04/18 8:11 AM) Basophils [0.0-1.0 1.1 % %] *HI* (08/04/18 8:11 AM) Neutrophils # 3.4 K/CMM [1.5-8.1 K/CMM] (08/04/18 8:11 AM) Lymphocytes # 1.6 K/CMM [1.0-5.5 K/CMM] (08/04/18 8:11 AM) Monocytes # [0.0-0.8 0.3 K/CMM K/CMM] (08/04/18 8:11 AM) Eosinophils # 0.1 K/CMM [0.0-0.5 K/CMM] (08/04/18 8:11 AM) Basophils # [0.0-0.2 0.1 K/CMM K/CMM] (08/04/18 8:11 AM) Microbiology Reports TEST: Culture: Urine STATUS: Auth (Verified) BODY SITE: SOURCE: Urine, Clean Catch COLLECTED DATE/TIME: 08/04/18 8:11 AM FINAL REPORT 50,000 - 100,000 CFU/mL Escherichia coli ORGANISM:Escherichia coli Immunizations No data available for this section [...]
--- OUTSIDE RECORDS SUMMARY | 2018-11-10 00:09 | XMS REPORT | Summary of Care ---
Author Author [facility] Organization [facility] Address Unknown Phone Unavailable Encounter HQ Elizabeth(FIN) [id number] Date(s): 07/10/17 - 07/10/17 [facility] [address] [place] [address]- Encounter Diagnosis Viral intestinal infection, unspecified (Final) - 07/15/17 Viral gastroenteritis (Discharge Diagnosis) - 07/10/17 Abdominal pain in female. (Discharge Diagnosis) - 07/10/17 Discharge Disposition: Home or Self Care Attending Physician: Trav Pride DO Vital Signs Most recent to 1 2 oldest [Reference Range]: Height 162.56 cm (07/10/17 7:58 AM) Temperature Oral 98.5 DegF 98.1 DegF [96.4-99.1 DegF] (07/10/17 12:39 PM) (07/10/17 7:58 AM) Blood Pressure 138/84 mmHg 123/87 mmHg [90-140/60-90 mmHg] (07/10/17 12:39 PM) (07/10/17 7:58 AM) Respiratory Rate 16 BRMIN 18 BRMIN [14-20 BRMIN] (07/10/17 12:39 PM) (07/10/17 7:58 AM) Peripheral Pulse 68 bpm 90 bpm Rate [60-100 bpm] (07/10/17 12:39 PM) (07/10/17 7:58 AM) Weight 100 kg (07/10/17 7:58 AM) Body Mass Index 37.84 m2 (07/10/17 7:58 AM) Problem List Condition Effective Dates Status Health Status Informant Kidney Active stone(Confirmed) Ovarian Resolved cyst(Confirmed) Vaginal bleeding Active problem(Confirmed) Vaginal Active delivery(Confirmed) Allergies, Adverse Reactions, Alerts Substance Reaction Severity Status acetaminophen-codeine1 Mild Active NKDA NKDA - No known drug allergies Active traMADol2 Active 1Puritis 2Puritis Medications Bentyl 20 mg, Route: PO, ONCE, Dosing Weight 100, kg, Start date: 07/10/17 9:31:00 SHADOWGRAPH SCALE OPERATOR, Stop date: 07/10/17 9:31:00 SHADOWGRAPH SCALE OPERATOR Start Date: 07/10/17 Stop Date: 07/10/17 Status: Completed Bentyl 20 mg oral tablet 20 mg=1 tab, PO, QID, # 28 tab, 0 Refill(s) Start Date: 07/10/17 Stop Date: 07/17/17 Status: Ordered ketOROLAC 30 mg, Route: IVP, Drug form: INJ, ONCE, Dosing Weight 100, kg, Priority: STAT, Start date: 07/10/17 8:32:00 SHADOWGRAPH SCALE OPERATOR, Stop date: 07/10/17 8:32:00 SHADOWGRAPH SCALE OPERATOR Start Date: 07/10/17 Stop Date: 07/10/17 Status: Completed normal saline 0.9% IV 1000 mL 1,000 mL, Rate: 1,000 ml/hr, Infuse over: 1 hr, Route: IV, Dosing Weight 100 kg, Total Volume: 1,000, Priority: STAT, Start date: 07/10/17 8:27:00 SHADOWGRAPH SCALE OPERATOR, Duration: 1 doses or times, Stop date: 07/10/17 9:26:00 SHADOWGRAPH SCALE OPERATOR, 2.16, m2 Start Date: 07/10/17 Stop Date: 07/10/17 Status: Completed NS (Bolus) IV 1,000 mL, 1,000 ml/hr, Infuse Over: 1 hr, Route: IV, ONCE, Priority: STATValente g Weight 100 kg, Start date: 07/10/17 8:32:00 SHADOWGRAPH SCALE OPERATOR, Stop date: 07/10/17 8:32:[address] Start Date: 07/10/17 Stop Date: 07/10/17 Status: Completed Zofran 4 mg, Route: IVP, Drug form: INJ, ONCE, Dosing Weight 100, kg, Priority: STATYaron tart date: 07/10/17 8:32:00 SHADOWGRAPH SCALE OPERATOR, Stop date: 07/10/17 8:32:00 SHADOWGRAPH SCALE OPERATOR Start Date: 07/10/17 Stop Date: 07/10/17 Status: Completed Zofran 4 mg, Route: IVP, Drug form: INJ, ONCE, Dosing Weight 100, kg, Priority: STAT, S tart date: 07/10/17 8:24:00 SHADOWGRAPH SCALE OPERATOR, Stop date: 07/10/17 8:24:00 SHADOWGRAPH SCALE OPERATOR Start Date: 07/10/17 Stop Date: 07/10/17 Status: Completed Zofran ODT 4 mg oral tablet, disintegrating 4 mg=1 tab, PO, BID, PRN Nausea and Vomiting, Dissolve tab under tongue, # 10 ta b, 0 Refill(s) Start Date: 07/10/17 Stop Date: 07/15/17 Status: Ordered Results ELECTROLYTES Most recent to 1 oldest [Reference Range]: Sodium Lvl [135-145 138 mEq/L mEq/L] (07/10/17 8:12 AM) Potassium Lvl 3.4 mEq/L [3.5-5.1 mEq/L] *LOW* (07/10/17 8:12 AM) Chloride Lvl [95-109 108 mEq/L mEq/L] (07/10/17 8:12 AM) CO2 [24-32 mEq/L] 19 mEq/L *LOW* (07/10/17 8:12 AM) AGAP [10.0-20.0 14.4 mEq/L mEq/L] (07/10/17 8:12 AM) CHEM PANEL Most recent to 1 oldest [Reference Range]: Creatinine Lvl 0.96 mg/dL [0.50-1.40 mg/dL] (07/10/17 8:12 AM) eGFR 75 mL/min/1.73m2 1 *NA* (07/10/17 8:12 AM) BUN [7-22 mg/dL] 14 mg/dL (07/10/17 8:12 AM) B/C Ratio [6-25] 15 (07/10/17 8:12 AM) Glucose Lvl [70-99 117 mg/dL mg/dL] *HI* (07/10/17 8:12 AM) Total Protein 7.4 g/dL [6.4-8.4 g/dL] (07/10/17 8:12 AM) Albumin Lvl [3.5-5.0 3.7 g/dL g/dL] (07/10/17 8:12 AM) Globulin [2.7-4.2 3.7 g/dL g/dL] (07/10/17 8:12 AM) A/G Ratio [0.7-1.6] 1.0 (07/10/17 8:12 AM) Calcium Lvl 8.1 mg/dL [8.5-10.5 mg/dL] *LOW* (07/10/17 8:12 AM) ALT [0-65 unit/L] 22 unit/L (07/10/17 8:12 AM) AST [0-37 unit/L] 12 unit/L (07/10/17 8:12 AM) Alk Phos [39-136 101 unit/L unit/L] (07/10/17 8:12 AM) Bili Total [0.2-1.3 0.3 mg/dL mg/dL] (07/10/17 8:12 AM) Amylase Lvl [25-115 82 unit/L unit/L] (07/10/17 8:12 AM) Lipase Lvl [73-393 156 unit/L unit/L] (07/10/17 8:12 AM) 1Result Comment: The eGFR is calculated [...] oldest [Reference Range]: UA Turbidity [Clear] Clear (07/10/17 8:12 AM) UA Color [Yellow] [place] *ABN* (07/10/17 8:12 AM) UA pH [5.0-8.0] 6.0 (07/10/17 8:12 AM) UA Spec Grav >=1.030 [<=1.030] *ABN* (07/10/17 8:12 AM) UA Glucose Negative [Negative] (07/10/17 8:12 AM) UA Blood [Negative] Trace *ABN* (07/10/17 8:12 AM) UA Ketones Negative [Negative] *NA* (07/10/17 8:12 AM) UA Protein Negative [Negative] (07/10/17 8:12 AM) UA Urobilinogen 0.2 EU/dL [0.1-1.0 EU/dL] (07/10/17 8:12 AM) UA Bili [Negative] Negative *NA* (07/10/17 8:12 AM) UA Leuk Est Negative [Negative] (07/10/17 8:12 AM) UA Nitrite Positive [Negative] *ABN* (07/10/17 8:12 AM) UA Bacteria [None Occasional /HPF Seen /HPF] *NA* (07/10/17 8:12 AM) UA Sq Epi [Few /LPF] Moderate /LPF *ABN* (07/10/17 8:12 AM) UA CaOx [place] [None Occasional /HPF Seen /HPF] *NA* (07/10/17 8:12 AM) UA Mucus [None Seen Few /LPF /LPF] *NA* (07/10/17 8:12 AM) HEMATOLOGY Most recent to 1 oldest [Reference Range]: WBC [3.7-10.4 K/CMM] 8.2 K/CMM (07/10/17 8:12 AM) RBC [4.20-5.40 4.59 M/CMM M/CMM] (07/10/17 8:12 AM) Hgb [12.0-16.0 g/dL] 13.8 g/dL (07/10/17 8:12 AM) Hct [36.0-48.0 %] 40.8 % (07/10/17 8:12 AM) MCV [80.0-98.0 fL] 88.7 fL (07/10/17 8:12 AM) MCH [27.0-31.0 pg] 30.0 pg (07/10/17 8:12 AM) MCHC [32.0-36.0 33.8 g/dL g/dL] (07/10/17 8:12 AM) RDW [11.5-14.5 %] 14.5 % (07/10/17 8:12 AM) MPV [7.4-10.4 fL] 7.8 fL (07/10/17 8:12 AM) Platelet [133-450 245 K/CMM K/CMM] (07/10/17 8:12 AM) Segs [45.0-75.0 %] 74.4 % (07/10/17 8:12 AM) Lymphocytes 18.0 % [20.0-40.0 %] *LOW* (07/10/17 8:12 AM) Monocytes [2.0-12.0 5.2 % %] (07/10/17 8:12 AM) Eosinophils [0.0-4.0 1.4 % %] (07/10/17 8:12 AM) Basophils [0.0-1.0 1.0 % %] (07/10/17 8:12 AM) Segs-Bands # 6.1 K/CMM [1.5-8.1 K/CMM] (07/10/17 8:12 AM) Lymphocytes # 1.5 K/CMM [1.0-5.5 K/CMM] (07/10/17 8:12 AM) Monocytes # [0.0-0.8 0.4 K/CMM K/CMM] (07/10/17 8:12 AM) Eosinophils # 0.1 K/CMM [0.0-0.5 K/CMM] (07/10/17 8:12 AM) Basophils # [0.0-0.2 0.1 K/CMM K/CMM] (07/10/17 8:12 AM) Immunizations No data available for this [...]
--- OUTSIDE RECORDS SUMMARY | 2018-11-10 00:10 | XMS REPORT | Summary of Care ---
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) - Personal history of urinary calculi (Final) - Personal history of nicotine dependence (Final) - Discharge Disposition: [facility]TC Left B4 Treatment Cmplt-MSE Cmplt Attending Physician: Chacho Douglas MD Referring Physician: Vicki Estrada MD Vital Signs Most recent to 1 oldest [Reference Range]: Height 162.56 cm (04/05/18 8:15 AM) Temperature Oral 98.7 DegF [96.4-99.1 DegF] (04/05/18 8:15 AM) Blood Pressure 119/82 mmHg [90-140/60-90 mmHg] (04/05/18 8:15 AM) Respiratory Rate 18 BRMIN [14-20 BRMIN] (04/05/18 8:15 AM) Peripheral Pulse 99 bpm Rate [60-100 bpm] (04/05/18 8:15 AM) Weight 100 kg (04/05/18 8:15 AM) Body Mass Index 37.84 m2 (04/05/18 8:15 AM) Problem List Condition Effective Dates Status Health Status Informant Kidney Active stone(Confirmed) Ovarian Resolved cyst(Confirmed) Vaginal bleeding Active problem(Confirmed) Vaginal Active delivery(Confirmed) Allergies, Adverse Reactions, Alerts Substance Reaction Severity Status codeine sulfate Active traMADol1 Active 1Puritis Medications GI cocktail (aluminum hydroxide/magnesium hydroxide/lidocaine/simethicone) 30 mL, Route: PO, Drug Form: SUSP, Dosing Weight 100, kg, ONCE, STAT, Start date : 04/05/18 9:02:00 YARN EXAMINER SKEINS, Stop date: 04/05/18 9:02:00 YARN EXAMINER SKEINS Notes: G.I. Cocktail - aluminum hydroxide/magnesium hydroxide/lidocaine/simethic one Start Date: 04/05/18 Stop Date: 04/05/18 Status: Completed morphine Sulfate 4 mg, 1 mL, Route: IVP, Drug form: SOLN, ONCE, Dosing Weight 100, kg, Priority: STAT, Start date: 04/05/18 8:39:00 YARN EXAMINER SKEINS, Stop date: 04/05/18 8:39:00 YARN EXAMINER SKEINS Notes: (Same as:MORPhine Sulfate) Start Date: 04/05/18 Stop Date: 04/05/18 Status: Completed ondansetron 4 mg, 2 mL, Route: IVP, Drug form: INJ, ONCE, Dosing Weight 100, kg, Priority: S TAT, Start date: 04/05/18 8:39:00 YARN EXAMINER SKEINS, Stop date: 04/05/18 8:39:00 YARN EXAMINER SKEINS Notes: (Same as: Nettafran) MEDICATION WASTE Product Size: 4 mgProduct Was luisito: ___ mg Start Date: 04/05/18 Stop Date: 04/05/18 Status: Completed Sodium Chloride 0.9% (Bolus) IV 1,000 mL, 1000 ml/hr, Infuse Over: 1 hr, Route: IV, 1,000, Drug form: INJ, ONCE, Priority: STAT, Dosing Weight 100 kg, Start date: 04/05/18 8:39:00 YARN EXAMINER SKEINS, Stop da te: 04/05/18 8:39:00 YARN EXAMINER SKEINS Start Date: 04/05/18 Stop Date: 04/05/18 Status: Completed sucralfate 1 gm, 1 tab, Route: PO, Drug form: TAB, ONCE, Dosing Weight 100, kg, Start date: 04/05/18 9:03:00 YARN EXAMINER SKEINS, Stop date: 04/05/18 9:03:00 YARN EXAMINER SKEINS Notes: May interfere w/enteral feeds - Take 1 hr before or 2 hr after antacids, dairy pdt, meals & minerals - On empty stomach.For patients unable to swallow tablet, dissolve in 10mL - 30mL of water or juice and stir before giving. (Same As: Carafate) Start Date: 04/05/18 Stop Date: 04/15/18 Status: Discontinued Results Most recent to 1 oldest [Reference Range]: Neutrophils # 3.6 K/CMM [1.5-8.1 K/CMM] (04/05/18 9:02 AM) Lymphocytes # 1.5 K/CMM [1.0-5.5 K/CMM] (04/05/18 9:02 AM) Monocytes # [0.0-0.8 0.3 K/CMM K/CMM] (04/05/18 9:02 AM) Eosinophils # 0.1 K/CMM [0.0-0.5 K/CMM] (04/05/18 9:02 AM) Basophils # [0.0-0.2 0.1 K/CMM K/CMM] (04/05/18 9:02 AM) eGFR 62 mL/min/1.73m2 1 *NA* (04/05/18 9:02 AM) A/G Ratio [0.7-1.6] 0.9 (04/05/18 9:02 AM) Albumin Lvl [3.5-5.0 3.3 g/dL g/dL] *LOW* (04/05/18 9:02 AM) Alk Phos [39-136 116 unit/L unit/L] (04/05/18 9:02 AM) ALT [0-65 unit/L] 39 unit/L (04/05/18 9:02 AM) AGAP [10.0-20.0 16.2 mEq/L mEq/L] (04/05/18 9:02 AM) AST [0-37 unit/L] 20 unit/L (04/05/18 9:02 AM) B/C Ratio [6-25] 16 (04/05/18 9:02 AM) Basophils [0.0-1.0 1.1 % %] *HI* (04/05/18 9:02 AM) BUN [7-22 mg/dL] 18 mg/dL (04/05/18 9:02 AM) Calcium Lvl 8.6 mg/dL [8.5-10.5 mg/dL] (04/05/18 9: AM) Chloride Lvl [95-109 108 mEq/L mEq/L] (04/05/18: AM) CO2 [24-32 mEq/L] 23 mEq/L *LOW* (04/05/18 AM) Creatinine Lvl 1.11 mg/dL [0.50-1.40 mg/dL] (04/05/18: AM) Eosinophils [0.0-4.0 2.5 % %] (04/05/18: AM) Globulin [2.7-4.2 3.6 g/dL g/dL] (04/05/18: AM) Glucose Lvl [70-99 97 mg/dL mg/dL] (04/05/18 AM) Hct [36.0-48.0 %] 38.0 % (04/05/18: AM) Hgb [12.0-16.0 g/dL] 13.1 g/dL (04/05/18 AM) Potassium Lvl 4.2 mEq/L [3.5-5.1 mEq/L] (04/05/18: AM) Lipase Lvl [73-393 139 unit/L unit/L] (04/05/18 AM) Lymphocytes 26.9 % [20.0-40.0 %] (04/05/18: AM) MCH [27.0-31.0 pg] 29.9 pg (04/05/18 AM) MCHC [32.0-36.0 34.4 g/dL g/dL] (04/05/18: AM) MCV [80.0-98.0 fL] 86.8 fL (04/05/18: AM) Monocytes [2.0-12.0 4.7 % %] (04/05/18: AM) MPV [7.4-10.4 fL] 7.1 fL *LOW* (04/05/18: AM) Sodium Lvl [135-145 143 mEq/L mEq/L] (11/5/18 9:02 AM) Platelet [133-450 248 K/CMM K/CMM] (04/05/18 9:02 AM) Segs [45.0-75.0 %] 64.8 % (04/05/18 9:02 AM) Total Protein 6.9 g/dL [6.4-8.4 g/dL] (04/05/18 9:02 AM) RBC [4.20-5.40 4.38 M/CMM M/CMM] (04/05/18 9:02 AM) RDW [11.5-14.5 %] 14.8 % *HI* (04/05/18 9:02 AM) S Preg [Negative] Negative *NA* (04/05/18 9:02 AM) Bili Total [0.2-1.3 0.3 mg/dL mg/dL] (04/05/18 9:02 AM) UA Bacteria [None Occasional /HPF Seen /HPF] *NA* (04/05/18 9:02 AM) UA Bili [Negative] Negative *NA* (04/05/18 9:02 AM) UA Blood [Negative] Negative (04/05/18 9:02 AM) UA Color Ltyellow *NA* (04/05/18 9:02 AM) UA Glucose Negative [Negative] *NA* (04/05/18 9:02 AM) UA Ketones Negative [Negative] *NA* (04/05/18 9:02 AM) UA Leuk Est Negative [Negative] (04/05/18 9:02 AM) UA Nitrite Negative [Negative] (04/05/18 9:02 AM) UA pH [5.0-8.0] 7.0 (04/05/18 9:02 AM) UA Protein Negative [Negative] (04/05/18 9:02 AM) UA RBC [0-2 /HPF] 2 /HPF (04/05/18 9:02 AM) UA Spec Grav 1.009 [<=1.030] (04/05/18 9:02 AM) UA Sq Epi [Few /LPF] Occasional /LPF *NA* (04/05/18 9:02 AM) UA Turbidity [Clear] Clear (04/05/18 9:02 AM) UA Urobilinogen <=1.0 mg/dL [0.1-1.0 mg/dL] *NA* (04/05/18 9:02 AM) UA WBC [0-5 /HPF] 2 /HPF (04/05/18 9:02 AM) WBC [3.7-10.4 K/CMM] 5.5 K/CMM (04/05/18 9:02 AM) 1Result Comment: The eGFR is calculated [...]
--- OUTSIDE RECORDS SUMMARY | 2018-11-10 00:10 | XMS REPORT | CCD ---
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 Bicycle Ii Assembler Name Role Phone Roel Hopper CP Allergies, Adverse Reactions, Alerts Substance Reaction Status NKDA NKDA - No known drug allergies Active Problem List Condition Effective Dates Status Vaginal bleeding problem Active Vaginal delivery Active Medications Medication Instructions Start Date End Date Status GI cocktail 30 mL, Route: PO, Dosing Weight 04/11/2012 04/11/2012 Completed 81.818, kg, ONCE, Start date: 04/11/12 12:02:00, Stop date: 04/11/12 12:02:00 naproxen 500 mg oral 500 mg, 1 tab, PO, BID, PRN, 20 04/11/2012 04/21/2012 Ordered tablet tab, for pain, Substitution Allowed, TAB Ultram 50 mg oral 1 - 2 tabs, PO, Q4-6H, PRN, 30 tab, 04/11/2012 Ordered tablet as needed for pain, Substitution Allowed acetaminophen-hydroc 1 tab, Route: PO, Drug Form: TAB, 04/11/2012 04/11/2012 Completed odone 325 mg-5 mg Dosing Weight 81.818, kg, ONCE, oral tablet Start date: 04/11/12 13:34:00, Stop date: 04/11/12 13:34:00 Vital Signs Most recent to oldest [Reference Range]: 1 Height 162.56 cm (04/11/2012 11:16:00) Weight 81.818 kg (04/11/2012 11:16:00)
--- OUTSIDE RECORDS SUMMARY | 2018-11-10 00:10 | XMS REPORT | CCD ---
Author Author Auto Generated Organization [facility] Address Unknown Phone Unavailable Care Team Providers Care Sports Official Name Role Phone Marco Hernandez CP Unavailable Allergies, Adverse Reactions, Alerts Substance Reaction Status NKDA NKDA - No known drug allergies Active Problem List Condition Effective Dates Status Vaginal bleeding problem Active Vaginal delivery Active Medications Medication Instructions Start Date End Date Status Zofran ODT 4 mg oral 4 mg, 1 tab, PO, BID, PRN, 10 tab, 08/13/2011 Ordered tablet, Nausea and Vomiting, Substitution disintegrating Allowed, Dissolve tab under tongue Dissolve tab under tongue [place] 5/325 oral 1 tab, PO, Q4H, PRN, 14 tab, for 08/13/2011 Ordered tablet pain, Substitution Allowed, Maintenance, TAB Saline Flush 0.9% 5 ml, Route: IVP, PRN, PRN Line 08/13/2011 08/13/2011 Discontinued Flush, Start date: 08/13/11 9:49:00, Duration: 24 hr, Stop date: 08/14/11 9:48:00 Sodium Chloride 0.9% 1,000 mL, Rate: 1,000 ml/hr, Infuse 08/13/2011 08/13/2011 Discontinued (Bolus) IV 1,000 mL over: 1 hr, Route: IV, kg, Total Volume: 1,000, Bolus dose, Priority: STAT, Start date: 08/13/11 9:49:00, Duration: 1 doses or times, Stop date: 08/13/11 10:48:00 ondansetron 4 mg, Route: IVP, ONCE, Priority: 08/13/2011 08/13/2011 Completed STAT, Start date: 08/13/11 9:49:00, Stop date: 08/13/11 9:49:00 morphine Sulfate 6 mg, Route: IVP, ONCE, Priority: 08/13/2011 08/13/2011 Discontinued STAT, Start date: 08/13/11 9:49:00, Stop date: 08/13/11 9:49:00 Dilaudid 1 mg, Route: IV, ONCE, Priority: 08/13/2011 08/13/2011 Completed STAT, Start date: 08/13/11 11:11:00, Stop date: 08/13/11 11:11:00 normal saline 0.9% 1,000 mL, Rate: 1,000 ml/hr, Infuse 08/13/2011 08/13/2011 Discontinued IV 1000 mL over: 1 hr, Route: IV, kg, Total Volume: 1,000, Start date: 08/13/11 9:43:00, Duration: 30 day, Stop date: 09/12/11 9:42:00 ondansetron 4 mg, Route: IVP, Drug form: INJ, 08/13/2011 08/13/2011 Completed ONCE, Priority: STAT, Start date: 08/13/11 9:43:00, Stop date: 08/13/11 9:43:00 morphine Sulfate 4 mg, Route: IVP, ONCE, Start date: 08/13/2011 08/13/2011 Completed 08/13/11 9:43:00, Stop date: 08/13/11 9:43:00 Vital Signs Most recent to oldest [Reference Range]: 1 Height 162.56 cm (08/13/2011 08:15:00) Weight 81.818 kg (08/13/2011 08:15:00) Results URINALYSIS Most recent to oldest [Reference Range]: 1 UA Turbidity [Clear] Clear (08/13/2011 08:40:00) UA Color [Yellow] Yellow *NA* (08/13/2011 08:40:00) UA pH [5.0-8.0] 5.5 (08/13/2011 08:40:00) UA Spec Grav [<=1.030] 1.025 (08/13/2011 08:40:00) UA Glucose [Negative] Negative (08/13/2011 08:40:00) UA Blood [Negative] Negative (08/13/2011 08:40:00) UA Ketones [Negative] Negative *NA* (08/13/2011 08:40:00) UA Protein [Negative] Negative (08/13/2011 08:40:00) UA Urobilinogen [0.1-1.0 EU/dL] 0.2 EU/dL (08/13/2011 08:40:00) UA Bili [Negative] Negative *NA* (08/13/2011 08:40:00) UA Leuk Est [Negative] Trace *ABN* (08/13/2011 08:40:00) UA Nitrite [Negative] Negative (08/13/2011 08:40:00) UA WBC [None Seen /HPF] 0-2 /HPF (08/13/2011 08:40:00) UA RBC [0-2] None Seen (08/13/2011 08:40:00) UA Bacteria [None Seen /HPF] Few /HPF (08/13/2011 08:40:00) UA Sq Epi [Few /LPF] Few /LPF (08/13/2011 08:40:00) UA Mucus [None Seen /LPF] Few /LPF (08/13/2011 08:40:00) CHEMISTRY Most recent to oldest [Reference Range]: 1 Sodium Lvl [135-145 mEq/L] 143 mEq/L (08/13/2011 08:40:00) Potassium Lvl [3.5-5.1 mEq/L] 3.7 mEq/L (08/13/2011 08:40:00) Chloride Lvl [95-109 mEq/L] 109 mEq/L (08/13/2011 08:40:00) CO2 [24-32 mEq/L] 24 mEq/L (08/13/2011 08:40:00) AGAP [10.0-20.0 mEq/L] 13.7 mEq/L (08/13/2011 08:40:00) Creatinine Lvl [0.5-1.4 mg/dL] 0.8 mg/dL (08/13/2011 08:40:00) BUN [7-22 mg/dL] 15 mg/dL (08/13/2011 08:40:00) B/C Ratio [6-25] 19 (08/13/2011 08:40:00) Glucose Lvl 74 mg/dL 1 *NA* (08/13/2011 08:40:00) Total Protein [6.4-8.4 g/dL] 7.1 g/dL (08/13/2011 08:40:00) Albumin Lvl [3.5-5.0 g/dL] 3.8 g/dL (08/13/2011 08:40:00) Globulin [2.0-4.0 g/dL] 3.3 g/dL (08/13/2011 08:40:00) A/G Ratio [0.7-1.6] 1.2 (08/13/2011 08:40:00) Calcium Lvl [8.5-10.5 mg/dL] 8.3 mg/dL *LOW* (08/13/2011 08:40:00) ALT [0-65 U/L] 23 U/L (08/13/2011 08:40:00) AST [0-37 U/L] 13 U/L (08/13/2011 08:40:00) Alk Phos [39-136 U/L] 58 U/L (08/13/2011 08:40:00) Bili Total [0.2-1.3 mg/dL] 0.4 mg/dL (08/13/2011 08:40:00) U Preg [Negative] Negative (08/13/2011 08:40:00) 1Interpretive Data: Reference Ranges : 0 - 7 days : 41 - 90 mg/dL7 days - 150 yrs : 70 - 99 mg/dL (fasting), based on the clinical recommendations of the [place] [employer]. HEMATOLOGY Most recent to oldest [Reference Range]: 1 WBC [3.7-10.4 K/CMM] 4.9 K/CMM (08/13/2011 08:40:00) RBC [4.20-5.40 M/CMM] 4.57 M/CMM (08/13/2011 08:40:00) Hgb [12.0-16.0 g/dL] 12.8 g/dL (08/13/2011 08:40:00) Hct [36.0-48.0 %] 38.7 % (08/13/2011 08:40:00) MCV [81.0-99.0 fL] 84.7 fL (08/13/2011 08:40:00) MCH [27.0-31.0 pg] 28.1 pg (08/13/2011 08:40:00) MCHC [32.0-36.0 g/dL] 33.1 g/dL (08/13/2011 08:40:00) RDW [11.5-14.5 %] 14.8 % *HI* (08/13/2011 08:40:00) Platelet [133-450 K/CMM] 181 K/CMM (08/13/2011 08:40:00) MPV [7.4-10.4 fL] 9.3 fL (08/13/2011 08:40:00) Segs [45.0-75.0 %] 61.0 % (08/13/2011 08:40:00) Lymphocytes [20.0-40.0 %] 29.1 % (08/13/2011 08:40:00) Monocytes [2.0-12.0 %] 7.3 % (08/13/2011 08:40:00) Eosinophils [0.0-4.0 %] 1.9 % (08/13/2011 08:40:00) Basophils [0.0-1.0 %] 0.7 % (08/13/2011 08:40:00) Segs-Bands # [1.5-8.1 K/CMM] 3.0 K/CMM (08/13/2011 08:40:00) Lymphocytes # [1.0-5.5 K/CMM] 1.4 K/CMM (08/13/2011 08:40:00) Monocytes # [0.0-0.8 K/CMM] 0.4 K/CMM (08/13/2011 08:40:00) Eosinophils # [0.0-0.5 K/CMM] 0.1 K/CMM (08/13/2011 08:40:00) Basophils # [0.0-0.2 K/CMM] 0.0 K/CMM (08/13/2011 08:40:00)
--- OUTSIDE RECORDS SUMMARY | 2018-11-10 00:10 | XMS REPORT | CCD ---
Author Author Auto Generated Organization [facility] Address Unknown Phone Unavailable Care Team Providers Care Slice Cutting Machine Operator Helper Name Role Phone Rick Ceja CP Allergies, Adverse Reactions, Alerts Substance Reaction Status NKDA NKDA - No known drug allergies Active Problem List Condition Effective Dates Status Vaginal bleeding problem Active Vaginal delivery Active Medications Medication Instructions Start Date End Date Status Keflex 500 mg oral 500 mg, 1 cap, PO, QID, 40 cap, 08/13/2012 08/23/2012 Ordered capsule Substitution Allowed, CAP [place] 5/325 oral 1-2 tab, PO, Q4-6H, PRN, 15 tab, 08/13/2012 08/18/2012 Ordered tablet Pain, Substitution Allowed, Maintenance Zofran 4 mg, Route: IVP, Drug form: INJ, 08/12/2012 08/12/2012 Completed ONCE, Dosing Weight 81.818, kg, Priority: STAT, Start date: 08/12/12 21:30:00, Stop date: 08/12/12 21:30:00 morphine Sulfate 4 mg, Route: IVP, Drug form: INJ, 08/12/2012 08/12/2012 Completed ONCE, Dosing Weight 81.818, kg, Priority: STAT, Start date: 08/12/12 21:30:00, Stop date: 08/12/12 21:30:00 Sodium Chloride 0.9% 500 mL, Rate: 1,000 ml/hr, Infuse 08/12/2012 08/12/2012 Completed (Bolus) IV 500 mL over: 30 minutes, Route: IV, kg, Total Volume: 500, Priority: STAT, Start date: 08/12/12 20:11:00, Duration: 1 doses or times, Stop date: 08/12/12 20:40:00 Saline Flush 0.9% 5 mL, Route: IVP, Drug Form: INJ, 08/12/2012 08/13/2012 Discontinued Dosing Weight 81.818, kg, PRN, PRN Line Flush, Start date: 08/12/12 20:11:00, Duration: 24 hr, Stop date: 08/13/12 20:10:00 morphine Sulfate 2 mg, Route: IVP, Drug form: INJ, 08/12/2012 08/12/2012 Completed ONCE, Dosing Weight 81.818, kg, Priority: STAT, Start date: 08/12/12 23:27:00, Stop date: 08/12/12 23:27:00 Vital Signs Most recent to oldest [Reference Range]: 1 Height 162.56 cm (08/12/2012 20:02:00) Weight 81.818 kg (08/12/2012 20:02:00) Results URINALYSIS Most recent to oldest [Reference Range]: 1 UA Turbidity [Clear] Slight *ABN* (08/12/2012 20:11:00) UA Color [Yellow] Yellow *NA* (08/12/2012 20:11:00) UA pH [5.0-8.0] 5.0 (08/12/2012 20:11:00) UA Spec Grav [<=1.030] 1.018 (08/12/2012 20:11:00) UA Glucose [Negative mg/dL] Negative mg/dL *NA* (08/12/2012 20:11:00) UA Blood [Negative] Large *ABN* (08/12/2012 20:11:00) UA Ketones [Negative mg/dL] Negative mg/dL *NA* (08/12/2012 20:11:00) UA Protein [Negative mg/dL] Negative mg/dL (08/12/2012 20:11:00) UA Urobilinogen [0.1-1.0 mg/dL] <=1.0 mg/dL *NA* (08/12/2012 20:11:00) UA Bili [Negative] Negative *NA* (08/12/2012 20:11:00) UA Leuk Est [Negative] Moderate *ABN* (08/12/2012 20:11:00) UA Nitrite [Negative] Negative (08/12/2012 20:11:00) UA WBC [0-5 /HPF] 7 /HPF *HI* (08/12/2012 20:11:00) UA RBC [0-2 /HPF] 5 /HPF *HI* (08/12/2012:11:00) UA Sq Epi [Few /LPF] Few /LPF *NA* (08/12/2012:11:00) CHEMISTRY Most recent to oldest [Reference Range]: 1 Sodium Lvl [135-145 mEq/L] 142 mEq/L (08/12/2012:11:00) Potassium Lvl [3.5-5.1 mEq/L] 4.0 mEq/L (08/12/2012:11:00) Chloride Lvl [95-109 mEq/L] 109 mEq/L (08/12/2012:11:00) CO2 [24-32 mEq/L] 27 mEq/L (08/12/2012:11:00) AGAP [10.0-20.0 mEq/L] 10.0 mEq/L (08/12/2012:11:00) Creatinine Lvl [0.5-1.4 mg/dL] 0.8 mg/dL (08/12/2012:11:00) eGFR 96 mL/min/1.73m2 1 *NA* (08/12/2012 20:11:00) BUN [7-22 mg/dL] 13 mg/dL (08/12/2012:11:00) B/C Ratio [6-25] 16 (08/12/2012:11:00) Glucose Lvl [70-99 mg/dL] 87 mg/dL 2 (08/12/2012 20:11:00) Total Protein [6.4-8.4 g/dL] 7.2 g/dL (08/12/2012:11:00) Albumin Lvl [3.5-5.0 g/dL] 3.9 g/dL (08/12/2012:11:00) Globulin [2.0-4.0 g/dL] 3.3 g/dL (08/12/2012:11:00) A/G Ratio [0.7-1.6] 1.2 (08/12/2012 20:11:00) Calcium Lvl [8.5-10.5 mg/dL] 8.9 mg/dL (08/12/2012:) ALT [0-65 unit/L] 90 unit/L *HI* (08/12/2012:11:00) AST [0-37 unit/L] 47 unit/L *HI* (08/12/2012::) Alk Phos [39-136 unit/L] 84 unit/L (08/12/2012::) Bili Total [0.2-1.3 mg/dL] 0.4 mg/dL (08/12/2012::) Bili Direct [0.0-0.3 mg/dL] 0.1 mg/dL (08/12/2012::) Lipase Lvl [73-393 unit/L] 156 unit/L (08/12/2012::) U Preg [Negative] Negative (08/12/2012 20:11:40) 1Result Comment: The eGFR is calculated using [...] be mul tiplied by the estimated BMI. 2Interpretive Data: Adult reference range values reflect the clinical guidelines of the [place] [employer]. HEMATOLOGY Most recent to oldest [Reference Range]: 1 WBC [3.7-10.4 K/CMM] 5.1 K/CMM (08/12/2012::) RBC [4.20-5.40 M/CMM] 4.41 M/CMM (08/12/2012::) Hgb [12.0-16.0 g/dL] 12.5 g/dL (08/12/2012:) Hct [36.0-48.0 %] 37.7 % (08/12/2012 20:11:00) MCV [81.0-99.0 fL] 85.5 fL (08/12/2012:1100) MCH [27.0-31.0 pg] 28.2 pg (08/12/2012:11:00) MCHC [32.0-36.0 g/dL] 33.0 g/dL (08/12/2012:1100) RDW [11.5-14.5 %] 14.4 % (08/12/2012:11:00) Platelet [133-450 K/CMM] 224 K/CMM (08/12/2012:11:00) MPV [7.4-10.4 fL] 7.6 fL (08/12/2012:11:) Segs [45.0-75.0 %] 61.3 % (08/12/2012:11:00) Lymphocytes [20.0-40.0 %] 27.5 % (08/12/2012:11:00) Monocytes [2.0-12.0 %] 8.5 % (08/12/2012:11:00) Eosinophils [0.0-4.0 %] 2.0 % (08/12/2012:11:00) Basophils [0.0-1.0 %] 0.7 % (08/12/2012:11:00) Segs-Bands # [1.5-8.1 K/CMM] 3.2 K/CMM (08/12/2012:11:00) Lymphocytes # [1.0-5.5 K/CMM] 1.4 K/CMM (08/12/2012:11:00) Monocytes # [0.0-0.8 K/CMM] 0.4 K/CMM (08/12/2012:11:00) Eosinophils # [0.0-0.5 K/CMM] 0.1 K/CMM (08/12/2012 20:11:00) Basophils # [0.0-0.2 K/CMM] 0.0 K/CMM (08/12/2012 20:11:00) Procedures Procedures Date Related Diagnosis Cholecystectomy Tubal ligation
--- OUTSIDE RECORDS SUMMARY | 2018-11-10 00:10 | XMS REPORT | CCD ---
Author Author Auto Generated Organization [facility] Address Unknown Phone Unavailable Care Team Providers Care Awning Hanger Supervisor Name Role Phone Tracy Mora CP Allergies, Adverse Reactions, Alerts Substance Reaction Status NKDA NKDA - No known drug allergies Active Problem List Condition Effective Dates Status Vaginal bleeding problem Active Vaginal delivery Active Medications Medication Instructions Start Date End Date Status Cipro 500 mg oral 500 mg, 1 tab, PO, Q12H, 6 tab, 07/02/2012 07/05/2012 Ordered tablet Substitution Allowed [place] 5/325 oral 1-2 tablets, PO, Q4-6H, PRN, 24 07/02/2012 07/07/2012 Ordered tablet tab, as needed for pain, Substitution Allowed, Maintenance ketorolac 30 mg, 1 mL, Route: IVP, Drug form: 07/02/2012 07/02/2012 Completed INJ, ONCE, Dosing Weight 81.818, kg, Priority: STAT, Start date: 07/02/12 7:55:00, Stop date: 07/02/12 7:55:00 ondansetron 4 mg, 2 mL, Route: IVP, Drug form: 07/02/2012 07/02/2012 Completed INJ, ONCE, Dosing Weight 81.818, kg, Priority: STAT, Start date: 07/02/12 7:55:00, Stop date: 07/02/12 7:55:00 Sodium Chloride 0.9% 500 mL, 1000 ml/hr, Route: IV, Drug 07/02/2012 07/02/2012 Completed (Bolus) IV Form: INJ, Dosing Weight 81.818, kg, ONCE, Bolus at 1,000 ml/hr, STAT, Start date: 07/02/12 7:55:00, Stop date: 07/02/12 7:55:00 Saline Flush 0.9% 5 mL, Route: IVP, Drug Form: INJ, 07/02/2012 07/02/2012 Discontinued Dosing Weight 81.818, kg, PRN, PRN Line Flush, Start date: 07/02/12 7:55:00, Duration: 24 hr, Stop date: 07/03/12 7:54:00 Sodium Chloride 0.9% 1,000 mL, Rate: 125 ml/hr, Infuse 07/02/2012 07/02/2012 Discontinued IV 1,000 mL over: 8 hr, Route: IV, kg, Total Volume: 1,000, Start date: 07/02/12 7:55:00, Duration: 30 day, Stop date: 08/01/12 7:54:00 Dilaudid 1 mg, Route: IV, ONCE, Dosing 07/02/2012 07/02/2012 Completed Weight 81.818, kg, Start date: 07/02/12 11:22:00, Stop date: 07/02/12 11:22:00 morphine Sulfate 6 mg, Route: IVP, Drug form: INJ, 07/02/2012 07/02/2012 Completed ONCE, Dosing Weight 81.818, kg, Priority: STAT, Start date: 07/02/12 10:08:00, Stop date: 07/02/12 10:08:00 Vital Signs Most recent to oldest [Reference Range]: 1 Height 162.56 cm (07/02/2012 07:31:00) Weight 81.818 kg (07/02/2012 07:31:00) Results URINALYSIS Most recent to oldest [Reference Range]: 1 UA Turbidity [Clear] Slight *ABN* (07/02/2012 08:29:00) UA Color [Yellow] Yellow *NA* (07/02/2012 08:29:00) UA pH [5.0-8.0] 5.0 (07/02/2012 08:29:00) UA Spec Grav [<=1.030] 1.026 (07/02/2012 08:29:00) UA Glucose [Negative mg/dL] Negative mg/dL *NA* (07/02/2012 08:29:00) UA Blood [Negative] Negative (07/02/2012 08:29:00) UA Ketones [Negative mg/dL] Negative mg/dL *NA* (07/02/2012 08:29:00) UA Protein [Negative mg/dL] 30 mg/dL *ABN* (07/02/2012 08:29:00) UA Urobilinogen [0.1-1.0 mg/dL] <=1.0 mg/dL *NA* (07/02/2012 08:29:00) UA Bili [Negative] Negative *NA* (07/02/2012 08:29:00) UA Leuk Est [Negative] Small *ABN* (07/02/2012 08:29:00) UA Nitrite [Negative] Negative (07/02/2012 08:29:00) UA WBC [0-5 /HPF] 19 /HPF *HI* (07/02/2012 08:29:00) UA RBC [0-2 /HPF] 2 /HPF (07/02/2012 08:29:00) UA Bacteria [None Seen /HPF] Many /HPF *ABN* (07/02/2012 08:29:00) UA Sq Epi [Few /LPF] Many /LPF *ABN* (07/02/2012 08:29:00) UA Hyal Cast [0-2 /LPF] 1 /LPF (07/02/2012 08:29:00) UA Mucus [None Seen /LPF] Few /LPF *NA* (07/02/2012 08:29:00) CHEMISTRY Most recent to oldest [Reference Range]: 1 Sodium Lvl [135-145 mEq/L] 141 mEq/L (07/02/2012 08:29:00) Potassium Lvl [3.5-5.1 mEq/L] 3.9 mEq/L (07/02/2012 08:29:00) Chloride Lvl [95-109 mEq/L] 107 mEq/L (07/02/2012 08:29:00) CO2 [24-32 mEq/L] 25 mEq/L (07/02/2012 08:29:00) AGAP [10.0-20.0 mEq/L] 12.9 mEq/L (07/02/2012 08:29:00) Creatinine Lvl [0.5-1.4 mg/dL] 0.7 mg/dL (07/02/2012 08:29:00) eGFR 113 mL/min/1.73m2 1 *NA* (07/02/2012 08:29:00) BUN [7-22 mg/dL] 10 mg/dL (07/02/2012::00) B/C Ratio [6-25] 14 (07/02/2012) Glucose Lvl [70-99 mg/dL] 80 mg/dL 2 (07/02/2012:00) Total Protein [6.4-8.4 g/dL] 6.8 g/dL (07/02/2012) Albumin Lvl [3.5-5.0 g/dL] 3.5 g/dL (07/02/2012) Globulin [2.0-4.0 g/dL] 3.3 g/dL (07/02/2012) A/G Ratio [0.7-1.6] 1.1 (07/02/2012) Calcium Lvl [8.5-10.5 mg/dL] 8.3 mg/dL *LOW* (07/02/2012) ALT [0-65 unit/L] 27 unit/L (07/02/2012:) AST [0-37 unit/L] 18 unit/L (07/02/2012::) Alk Phos [39-136 unit/L] 74 unit/L (07/02/2012) Bili Total [0.2-1.3 mg/dL] 0.4 mg/dL (07/02/2012::) Lipase Lvl [73-393 unit/L] 95 unit/L (07/02/2012:) U Preg [Negative] Negative (07/02/2012::) 1Result Comment: The eGFR is calculated using [...] values reflect the clinical guidelines of the [place] [employer]. HEMATOLOGY Most recent to oldest [Reference Range]: 1 WBC [3.7-10.4 K/CMM] 4.7 K/CMM (07/02/2012) RBC [4.20-5.40 M/CMM] 4.37 M/CMM (07/02/2012) Hgb [12.0-16.0 g/dL] 12.4 g/dL (07/02/2012) Hct [36.0-48.0 %] 38.1 % (07/02/2012) MCV [81.0-99.0 fL] 87.2 fL (07/02/2012) MCH [27.0-31.0 pg] 28.5 pg (07/02/2012) MCHC [32.0-36.0 g/dL] 32.7 g/dL (07/02/2012) RDW [11.5-14.5 %] 13.8 % (07/02/2012) Platelet [133-450 K/CMM] 219 K/CMM (07/02/2012) MPV [7.4-10.4 fL] 8.1 fL (07/02/2012) Segs [45.0-75.0 %] 53.3 % (07/02/2012) Lymphocytes [20.0-40.0 %] 33.6 % (07/02/2012) Monocytes [2.0-12.0 %] 9.2 % (07/02/2012) Eosinophils [0.0-4.0 %] 3.4 % (07/02/2012) Basophils [0.0-1.0 %] 0.5 % (07/02/2012 08:29:00) Segs-Bands # [1.5-8.1 K/CMM] 2.5 K/CMM (07/02/2012 08:29:00) Lymphocytes # [1.0-5.5 K/CMM] 1.6 K/CMM (07/02/2012 08:29:00) Monocytes # [0.0-0.8 K/CMM] 0.4 K/CMM (07/02/2012 08:29:00) Eosinophils # [0.0-0.5 K/CMM] 0.2 K/CMM (07/02/2012 08:29:00) Basophils # [0.0-0.2 K/CMM] 0.0 K/CMM (07/02/2012 08:29:00) Procedures Procedures Date Related Diagnosis Cholecystectomy
--- OUTSIDE RECORDS SUMMARY | 2018-11-10 00:10 | XMS REPORT | CCD ---
Author Author Auto Generated Organization [facility] Address Unknown Phone Unavailable Care Team Providers Care Construction Assistant Name Role Phone Freeman Mensah CP Allergies, Adverse Reactions, Alerts Substance Reaction Status NKDA NKDA - No known drug allergies Active Problem List Condition Effective Dates Status Vaginal bleeding problem Active Vaginal delivery Active Medications Medication Instructions Start Date End Date Status Valium 5 mg oral 1/2 tab, PO, QID, PRN, 15 tab, 06/23/2012 Ordered tablet muscle spasm, Substitution Allowed hydromorphone 0.5 mg, 0.5 mL, Route: IVP, Drug 06/23/2012 06/23/2012 Ordered form: SOLN, ONCE, Dosing Weight 81.818, kg, Priority: STAT, Start date: 06/23/12 11:48:00, Stop date: 06/23/12 11:48:00 hydromorphone 1 mg, Route: IVP, ONCE, Dosing 06/23/2012 06/23/2012 Completed Weight 81.818, kg, PRN as needed for pain, Priority: STAT, Start date: 06/23/12 9:07:00 ondansetron 4 mg, Route: IVP, Drug form: INJ, 06/23/2012 06/23/2012 Completed ONCE, Dosing Weight 81.818, kg, Priority: STAT, Start date: 06/23/12 9:07:00, Stop date: 06/23/12 9:07:00 Sodium Chloride 0.9% 1,000 mL, Route: IV, Dosing Weight 06/23/2012 06/23/2012 Completed (Bolus) IV 81.818, kg, ONCE, Bolus Dose - infuse over 1 hr, STAT, Start date: 06/23/12 9:07:00, Stop date: 06/23/12 9:07:00 acetaminophen-hydroc 1 tab, Route: PO, Dosing Weight 06/23/2012 06/23/2012 Completed odone 325 mg-10 mg 81.818, kg, ONCE, STAT, Start date: oral tablet 06/23/12 10:06:00, Stop date: 06/23/12 10:06:00 Ativan 2 mg, 1 mL, Route: IVP, Drug form: 06/23/2012 06/23/2012 Completed INJ, ONCE, Dosing Weight 81.818, kg, Priority: STAT, Start date: 06/23/12 11:39:00, Stop date: 06/23/12 11:39:00 Toradol 30 mg/mL 30 mg, 1 mL, Route: IVP, Drug form: 06/23/2012 06/23/2012 Completed injectable solution INJ, ONCE, Dosing Weight 81.818, kg, Start date: 06/23/12 11:39:00, Stop date: 06/23/12 11:39:00 [place] 10/325 oral 1 tab, PO, Q6H, PRN, 24 tab, for 06/23/2012 Ordered tablet pain, Substitution Allowed, Maintenance Vital Signs Most recent to oldest [Reference Range]: 1 Height 162.56 cm (06/23/2012 08:06:00) Weight 81.818 kg (06/23/2012 08:06:00) Results URINALYSIS Most recent to oldest [Reference Range]: 1 UA Turbidity [Clear] Clear (06/23/2012 08:10:00) UA Color Ltyellow *NA* (06/23/2012 08:10:00) UA pH [5.0-8.0] 6.0 (06/23/2012 08:10:00) UA Spec Grav [<=1.030] 1.010 (06/23/2012 08:10:00) UA Glucose [Negative mg/dL] Negative mg/dL *NA* (06/23/2012 08:10:00) UA Blood [Negative] Large *ABN* (06/23/2012 08:10:00) UA Ketones [Negative mg/dL] Negative mg/dL *NA* (06/23/2012 08:10:00) UA Protein [Negative mg/dL] Negative mg/dL (06/23/2012 08:10:00) UA Urobilinogen [0.1-1.0 mg/dL] <=1.0 mg/dL *NA* (06/23/2012 08:10:00) UA Bili [Negative] Negative *NA* (06/23/2012 08:10:00) UA Leuk Est [Negative] Small *ABN* (06/23/2012 08:10:00) UA Nitrite [Negative] Negative (06/23/2012 08:10:00) UA WBC [0-5 /HPF] 11 /HPF *HI* (06/23/2012 08:10:00) UA RBC [0-2 /HPF] >182 /HPF *HI* (06/23/2012 08:10:00) UA Bacteria [None Seen /HPF] Many /HPF *ABN* (06/23/2012 08:10:00) UA Sq Epi [Few /LPF] Occasional /LPF *NA* (06/23/2012 08:10:00) CHEMISTRY Most recent to oldest [Reference Range]: 1 Sodium Lvl [135-145 mEq/L] 140 mEq/L (06/23/2012 08:25:00) Potassium Lvl [3.5-5.1 mEq/L] 3.7 mEq/L (06/23/2012 08:25:00) Chloride Lvl [95-109 mEq/L] 107 mEq/L (06/23/2012 08:25:00) CO2 [24-32 mEq/L] 25 mEq/L (06/23/2012 08:25:00) AGAP [10.0-20.0 mEq/L] 11.7 mEq/L (06/23/2012 08:25:00) Creatinine Lvl [0.5-1.4 mg/dL] 0.7 mg/dL (06/23/2012 08:25:00) eGFR 113 mL/min/1.73m2 1 *NA* (06/23/2012 08:25:00) BUN [7-22 mg/dL] 13 mg/dL (06/23/2012 08:25:00) B/C Ratio [6-25] 19 (06/23/2012 08:25:00) Glucose Lvl [70-99 mg/dL] 105 mg/dL 2 *HI* (06/23/2012 08:25:00) Total Protein [6.4-8.4 g/dL] 7.6 g/dL (06/23/2012 08:25:00) Albumin Lvl [3.5-5.0 g/dL] 4.1 g/dL (06/23/2012::00) Globulin [2.0-4.0 g/dL] 3.5 g/dL (06/23/2012:25:) A/G Ratio [0.7-1.6] 1.2 (06/23/2012) Calcium Lvl [8.5-10.5 mg/dL] 8.6 mg/dL (06/23/2012:25:00) ALT [0-65 unit/L] 26 unit/L (06/23/2012) AST [0-37 unit/L] 16 unit/L (06/23/2012) Alk Phos [39-136 unit/L] 85 unit/L (06/23/2012::) Bili Total [0.2-1.3 mg/dL] 0.6 mg/dL (06/23/2012:25:) Amylase Lvl [25-115 unit/L] 73 unit/L (06/23/2012:25:00) Lipase Lvl [73-393 unit/L] 145 unit/L (06/23/2012:25:) U Preg [Negative] Negative (06/23/2012 08:10:00) 1Result Comment: The eGFR is calculated using [...] values reflect the clinical guidelines of the [place] [employer]. HEMATOLOGY Most recent to oldest [Reference Range]: 1 WBC [3.7-10.4 K/CMM] 6.0 K/CMM (06/23/2012:25:00) RBC [4.20-5.40 M/CMM] 4.55 M/CMM (06/23/2012:25:) Hgb [12.0-16.0 g/dL] 13.3 g/dL (06/23/2012:25:) Hct [36.0-48.0 %] 39.4 % (06/23/2012) MCV [81.0-99.0 fL] 86.6 fL (06/23/2012) MCH [27.0-31.0 pg] 29.1 pg (06/23/2012) MCHC [32.0-36.0 g/dL] 33.7 g/dL (06/23/2012) RDW [11.5-14.5 %] 14.0 % (06/23/2012:25:) Platelet [133-450 K/CMM] 241 K/CMM (06/23/201225:) MPV [7.4-10.4 fL] 8.1 fL (06/23/2012) Segs [45.0-75.0 %] 65.6 % (06/23/2012:25:) Lymphocytes [20.0-40.0 %] 25.8 % (06/23/2012) Monocytes [2.0-12.0 %] 5.2 % (06/23/2012:) Eosinophils [0.0-4.0 %] 2.6 % (06/23/2012) Basophils [0.0-1.0 %] 0.8 % (06/23/2012) Segs-Bands # [1.5-8.1 K/CMM] 4.0 K/CMM (06/23/201225) Lymphocytes # [1.0-5.5 K/CMM] 1.6 K/CMM (06/23/2012 08:25:00) Monocytes # [0.0-0.8 K/CMM] 0.3 K/CMM (06/23/2012 08:25:00) Eosinophils # [0.0-0.5 K/CMM] 0.2 K/CMM (06/23/2012 08:25:00) Basophils # [0.0-0.2 K/CMM] 0.0 K/CMM (06/23/2012 08:25:00) Microbiology Reports PROCEDURE:Culture: Urine STATUS: In Progress BODY SITE: COLLECTED DATE/TIME: 06/23/2012 09:26:00 SOURCE: Urine, Clean Catch FREE TEXT SOURCE: PRELIMINARY REPORTS Preliminary Report >100,000 CFU/mL Gram Negative Rods, Non-Lactose Fermenters : Identification And Sensitivity To Follow 10,000 - 50,000 CFU/mL Gram Negative Rods, Lactose Fermenters : Subculture In P florentin Preliminary Report Holding For Better Growth
--- OUTSIDE RECORDS SUMMARY | 2018-11-10 00:10 | XMS REPORT | CCD ---
Author Author Auto Generated Organization [facility] Address Unknown Phone Unavailable Care Team Providers Care Communications Tower Climber Name Role Phone Freeman Reaves CP Allergies, Adverse Reactions, Alerts Substance Reaction Status NKDA NKDA - No known drug allergies Active Problem List Condition Effective Dates Status Vaginal bleeding problem Active Vaginal delivery Active Medications Medication Instructions Start Date End Date Status Toradol 10 mg oral 10 mg, 1 tab, PO, TID, PRN, 20 tab, 03/28/2012 Ordered tablet Pain, Substitution Allowed, TAB ondansetron 4 mg 4 mg, 1 tab, PO, BID, 10 tab, 03/28/2012 Ordered oral tablet Substitution Allowed, TAB Dilaudid 1 mg, 1 mL, Route: IV, Drug form: 03/28/2012 03/28/2012 Completed SOLN, ONCE, Dosing Weight 81.818, kg, Start date: 03/28/12 14:33:00, Stop date: 03/28/12 14:33:00 NS 1000 mL 1,000 mL, Rate: 1,000 ml/hr, Infuse 03/28/2012 03/28/2012 Completed over: 1 hr, Route: IV, Dosing Weight 81.818 kg, Total Volume: 1,000, Start date: 03/28/12 13:25:00, Duration: 1 doses or times, Stop date: 03/28/12 14:24:00, Bolus Dose Bolus Dose Saline Flush 0.9% 5 mL, Route: IVP, Drug Form: INJ, 03/28/2012 03/29/2012 Discontinued Dosing Weight 81.818, kg, PRN, PRN Line Flush, Start date: 03/28/12 13:25:00, Duration: 24 hr, Stop date: 03/29/12 13:24:00 ondansetron 4 mg, Route: IVP, ONCE, Dosing 03/28/2012 03/28/2012 Completed Weight 81.818, kg, Priority: STAT, Start date: 03/28/12 13:25:00, Stop date: 03/28/12 13:25:00 ketorolac 30 mg, Route: IVP, ONCE, Dosing 03/28/2012 03/28/2012 Completed Weight 81.818, kg, Priority: STAT, Start date: 03/28/12 13:25:00, Stop date: 03/28/12 13:25:00 Vital Signs Most recent to oldest [Reference Range]: 1 Height 162.56 cm (03/28/2012 12:47:00) Weight 81.818 kg (03/28/2012 12:47:00) Results URINALYSIS Most recent to oldest [Reference Range]: 1 UA Turbidity [Clear] Clear (03/28/2012 13:20:00) UA Color [Yellow] Yellow *NA* (03/28/2012 13:20:00) UA pH [5.0-8.0] 6.0 (03/28/2012 13:20:00) UA Spec Grav [<=1.030] <1.005 *NA* (03/28/2012 13:20:00) UA Glucose [Negative] Negative (03/28/2012 13:20:00) UA Blood [Negative] Negative (03/28/2012 13:20:00) UA Ketones [Negative] Negative *NA* (03/28/2012 13:20:00) UA Protein [Negative] Negative (03/28/2012 13:20:00) UA Urobilinogen [0.1-1.0 EU/dL] 0.2 EU/dL (03/28/2012 13:20:00) UA Bili [Negative] Negative *NA* (03/28/2012 13:20:00) UA Leuk Est [Negative] Moderate *ABN* (03/28/2012 13:20:00) UA Nitrite [Negative] Negative (03/28/2012 13:20:00) UA WBC [0-5 /HPF] 14 /HPF *HI* (03/28/2012 13:20:00) UA RBC [0-2 /HPF] 1 /HPF (03/28/2012 13:20:00) UA Bacteria [None Seen /HPF] Occasional /HPF *NA* (03/28/2012 13:20:00) UA Sq Epi [Few /LPF] Occasional /LPF *NA* (03/28/2012 13:20:00) CHEMISTRY Most recent to oldest [Reference Range]: 1 Sodium Lvl [135-145 mEq/L] 139 mEq/L (03/28/2012 13:20:00) Potassium Lvl [3.5-5.1 mEq/L] 4.0 mEq/L (03/28/2012 13:20:00) Chloride Lvl [95-109 mEq/L] 107 mEq/L (03/28/2012 13:20:00) CO2 [24-32 mEq/L] 24 mEq/L (03/28/2012 13:20:00) AGAP [10.0-20.0 mEq/L] 12.0 mEq/L (03/28/2012 13:20:00) Creatinine Lvl [0.5-1.4 mg/dL] 0.9 mg/dL (03/28/2012 13:20:00) eGFR 84 mL/min/1.73m2 1 *NA* (03/28/2012:20:00) BUN [7-22 mg/dL] 14 mg/dL (03/28/2012 13:20:00) B/C Ratio [6-25] 16 (03/28/2012 13:20:00) Glucose Lvl [70-99 mg/dL] 83 mg/dL 2 (03/28/2012 13:20:00) Total Protein [6.4-8.4 g/dL] 6.9 g/dL (03/28/2012 13:20:00) Albumin Lvl [3.5-5.0 g/dL] 3.7 g/dL (03/28/2012 13:20:00) Globulin [2.0-4.0 g/dL] 3.2 g/dL (03/28/2012 13:20:00) A/G Ratio [0.7-1.6] 1.2 (03/28/2012 13:20:00) Calcium Lvl [8.5-10.5 mg/dL] 8.6 mg/dL (03/28/2012 13:20:00) ALT [0-65 unit/L] 25 unit/L (03/28/2012:20:00) AST [0-37 unit/L] 15 unit/L (03/28/2012:20:00) Alk Phos [39-136 unit/L] 69 unit/L (03/28/2012:20:00) Bili Total [0.2-1.3 mg/dL] 0.4 mg/dL (03/28/2012:20:00) Lipase Lvl [73-393 unit/L] 119 unit/L (03/28/2012:20:00) 1Result Comment: The eGFR is calculated using [...] values reflect the clinical guidelines of the [place] [employer]. HEMATOLOGY Most recent to oldest [Reference Range]: 1 WBC [3.7-10.4 K/CMM] 6.3 K/CMM (03/28/2012:20:) RBC [4.20-5.40 M/CMM] 4.51 M/CMM (03/28/201220) Hgb [12.0-16.0 g/dL] 13.3 g/dL (03/28/2012:20:00) Hct [36.0-48.0 %] 39.0 % (03/28/2012:20:00) MCV [81.0-99.0 fL] 86.5 fL (03/28/2012:20:00) MCH [27.0-31.0 pg] 29.5 pg (03/28/2012:2000) MCHC [32.0-36.0 g/dL] 34.1 g/dL (03/28/2012 13:20:00) RDW [11.5-14.5 %] 13.9 % (03/28/2012 13:20:00) Platelet [133-450 K/CMM] 227 K/CMM (03/28/2012 13:20:00) MPV [7.4-10.4 fL] 8.4 fL (03/28/2012 13:20:00) Segs [45.0-75.0 %] 62.0 % (03/28/2012:20:00) Lymphocytes [20.0-40.0 %] 29.5 % (03/28/2012 13:20:00) Monocytes [2.0-12.0 %] 6.3 % (03/28/2012:20:00) Eosinophils [0.0-4.0 %] 1.7 % (03/28/2012:20:00) Basophils [0.0-1.0 %] 0.5 % (03/28/2012 13:20:00) Segs-Bands # [1.5-8.1 K/CMM] 3.9 K/CMM (03/28/2012 13:20:00) Lymphocytes # [1.0-5.5 K/CMM] 1.8 K/CMM (03/28/2012 13:20:00) Monocytes # [0.0-0.8 K/CMM] 0.4 K/CMM (03/28/2012 13:20:00) Eosinophils # [0.0-0.5 K/CMM] 0.1 K/CMM (03/28/2012 13:20:00) Basophils # [0.0-0.2 K/CMM] 0.0 K/CMM (03/28/2012 13:20:00) IMMUNOLOGY Most recent to oldest [Reference Range]: 1 CDC-HIV 1/2 Ab [Negative] Negative *NA* (03/28/2012 13:20:00)
--- OUTSIDE RECORDS SUMMARY | 2018-11-10 00:10 | XMS REPORT | CCD ---
Author Author Auto Generated Organization [facility] Address Unknown Phone Unavailable Care Team Providers Care Moth Proofer Name Role Phone Rosendo Arthuria CP Allergies, Adverse Reactions, Alerts Substance Reaction Status NKDA NKDA - No known drug allergies Active Problem List Condition Effective Dates Status Vaginal bleeding problem Active Vaginal delivery Active Medications Medication Instructions Start Date End Date Status Toradol 15 mg/mL 15 mg, Route: IV, Drug form: INJ, 06/19/2011 06/19/2011 Completed injectable solution ONCE, Start date: 06/19/11 13:59:00, Stop date: 06/19/11 13:59:00 Zofran 4 mg, Route: IVP, Drug form: INJ, 06/19/2011 06/19/2011 Completed ONCE, Priority: STAT, Start date: 06/19/11 11:08:00, Stop date: 06/19/11 11:08:00 tramadol 50 mg oral 50 mg, 1 tab, PO, Q4H, PRN, 20 tab, 06/19/2011 Ordered tablet for pain, Substitution Allowed, TAB morphine Sulfate 6 mg, Route: IVP, ONCE, Priority: 06/19/2011 06/19/2011 Completed STAT, Start date: 06/19/11 8:05:00, Stop date: 06/19/11 8:05:00 ondansetron 4 mg, Route: IVP, ONCE, Priority: 06/19/2011 06/19/2011 Completed STAT, Start date: 06/19/11 8:05:00, Stop date: 06/19/11 8:05:00 Saline Flush 0.9% 5 ml, Route: IVP, Drug Form: INJ, 06/19/2011 06/20/2011 Discontinued PRN, PRN Line Flush, Start date: 06/19/11 8:05:00, Duration: 24 hr, Stop date: 06/20/11 8:04:00 Sodium Chloride 0.9% 1,000 mL, Rate: 125 ml/hr, Infuse 06/19/2011 06/20/2011 Discontinued IV 1,000 mL over: 8 hr, Route: IV, Total Volume: 1,000, Start date: 06/19/11 8:05:00, Duration: 30 day, Stop date: 07/19/11 8:04:00 morphine Sulfate 4 mg, Route: IVP, ONCE, Priority: 06/19/2011 06/19/2011 Completed STAT, Start date: 06/19/11 10:47:00, Stop date: 06/19/11 10:47:00 Flagyl 2 gm, Route: PO, Drug form: TAB, 06/19/2011 06/19/2011 Completed ONCE, Start date: 06/19/11 13:50:00, Duration: 1 doses or times, Stop date: 06/19/11 13:50:00 Zithromax 1,000 mg, Route: PO, ONCE, 06/19/2011 06/19/2011 Completed Priority: STAT, Start date: 06/19/11 13:49:00, Stop date: 06/19/11 13:49:00 Rocephin 250 mg, Route: IM, ONCE, Start 06/19/2011 06/19/2011 Completed date: 06/19/11 13:49:00, Stop date: 06/19/11 13:49:00 Vital Signs Most recent to oldest [Reference Range]: 1 2 3 Temperature Oral [96.4-99.1 DegF] 98.2 DegF (06/19/2011 15:22:00) 98.0 DegF (06/19/2011 13:50:00) 98.6 DegF (06/19/2011 10:07:00) Systolic Blood Pressure [90-140 mmHg] 112 mmHg (06/19/2011 15:22:00) 117 mmHg (06/19/2011 13:50:00) 110 mmHg (06/19/2011 10:07:00) Diastolic Blood Pressure [60-90 mmHg] 76 mmHg (06/19/2011 15:22:00) 67 mmHg (06/19/2011 13:50:00) 70 mmHg (06/19/2011 10:07:00) Respiratory Rate [14-20 BRMIN] 18 BRMIN (06/19/2011 15:22:00) 18 BRMIN (06/19/2011 13:50:00) 18 BRMIN (06/19/2011 10:07:00) Peripheral Pulse Rate [60-100 bpm] 85 bpm (06/19/2011 15:22:00) 65 bpm (06/19/2011 13:50:00) 88 bpm (06/19/2011 10:07:00) Results URINALYSIS Most recent to oldest [Reference Range]: 1 UA Turbidity [Clear] Clear (06/19/2011 08:43:00) UA Color [Yellow] Yellow *NA* (06/19/2011 08:43:00) UA pH [5.0-8.0] 7.0 (06/19/2011 08:43:00) UA Spec Grav [<=1.030] 1.015 (06/19/2011 08:43:00) UA Glucose [Negative] Negative (06/19/2011 08:43:00) UA Blood [Negative] Small *ABN* (06/19/2011 08:43:00) UA Ketones [Negative] Negative *NA* (06/19/2011 08:43:00) UA Protein [Negative] Negative (06/19/2011 08:43:00) UA Urobilinogen [0.1-1.0 EU/dL] 0.2 EU/dL (06/19/2011 08:43:00) UA Bili [Negative] Negative *NA* (06/19/2011 08:43:00) UA Leuk Est [Negative] Trace *ABN* (06/19/2011 08:43:00) UA Nitrite [Negative] Negative (06/19/2011 08:43:00) UA WBC [None Seen /HPF] 6-10 /HPF *ABN* (06/19/2011 08:43:00) UA RBC [0-2 /HPF] 0-2 /HPF (06/19/2011 08:43:00) UA Bacteria [None Seen /HPF] Moderate /HPF (06/19/2011 08:43:00) UA Sq Epi [Few /LPF] Few /LPF (06/19/2011 08:43:00) Micro? Performed (06/19/2011 08:43:00) CHEMISTRY Most recent to oldest [Reference Range]: 1 Sodium Lvl [135-145 mEq/L] 141 mEq/L (06/19/2011 08:54:00) Potassium Lvl [3.5-5.1 mEq/L] 3.9 mEq/L (06/19/2011 08:54:00) Chloride Lvl [95-109 mEq/L] 105 mEq/L (06/19/2011 08:54:00) CO2 [24-32 mEq/L] 28 mEq/L (06/19/2011 08:54:00) AGAP [10.0-20.0 mEq/L] 11.9 mEq/L (06/19/2011 08:54:00) Creatinine Lvl [0.5-1.4 mg/dL] 0.8 mg/dL (06/19/2011 08:54:00) BUN [7-22 mg/dL] 13 mg/dL (06/19/2011 08:54:00) B/C Ratio [6-25] 16 (06/19/2011 08:54:00) Glucose Lvl 78 mg/dL 1 *NA* (06/19/2011 08:54:00) Total Protein [6.4-8.4 g/dL] 7.6 g/dL (06/19/2011 08:54:00) Albumin Lvl [3.5-5.0 g/dL] 4.1 g/dL (06/19/2011 08:54:00) Globulin [2.0-4.0 g/dL] 3.5 g/dL (06/19/2011 08:54:00) A/G Ratio [0.7-1.6] 1.2 (06/19/2011 08:54:00) Calcium Lvl [8.5-10.5 mg/dL] 8.9 mg/dL (06/19/2011 08:54:00) ALT [0-65 U/L] 28 U/L (06/19/2011 08:54:00) AST [0-37 U/L] 15 U/L (06/19/2011 08:54:00) Alk Phos [39-136 U/L] 66 U/L (06/19/2011 08:54:00) Bili Total [0.2-1.3 mg/dL] 0.4 mg/dL (06/19/2011 08:54:00) U Preg [Negative] Negative (06/19/2011 08:43:00) 1Interpretive Data: Reference Ranges : 0 - 7 days : 41 - 90 mg/dL7 days - 150 yrs : 70 - 99 mg/dL (fasting), based on the clinical recommendations of the [place] [employer]. HEMATOLOGY Most recent to oldest [Reference Range]: 1 WBC [3.7-10.4 K/CMM] 4.7 K/CMM (06/19/2011 08:54:00) RBC [4.20-5.40 M/CMM] 4.63 M/CMM (06/19/2011 08:54:00) Hgb [12.0-16.0 g/dL] 13.3 g/dL (06/19/2011 08:54:00) Hct [36.0-48.0 %] 38.7 % (06/19/2011 08:54:00) MCV [81.0-99.0 fL] 83.6 fL (06/19/2011 08:54:00) MCH [27.0-31.0 pg] 28.8 pg (06/19/2011 08:54:00) MCHC [32.0-36.0 g/dL] 34.4 g/dL (06/19/2011 08:54:00) RDW [11.5-14.5 %] 14.8 % *HI* (06/19/2011 08:54:00) Platelet [133-450 K/CMM] 224 K/CMM (06/19/2011 08:54:00) MPV [7.4-10.4 fL] 8.2 fL (06/19/2011 08:54:00) Segs [45.0-75.0 %] 58.7 % (06/19/2011 08:54:00) Lymphocytes [20.0-40.0 %] 31.6 % (06/19/2011 08:54:00) Monocytes [2.0-12.0 %] 6.4 % (06/19/2011 08:54:00) Eosinophils [0.0-4.0 %] 2.5 % (06/19/2011 08:54:00) Basophils [0.0-1.0 %] 0.8 % (06/19/2011 08:54:00) Segs-Bands # [1.5-8.1 K/CMM] 2.8 K/CMM (06/19/2011 08:54:00) Lymphocytes # [1.0-5.5 K/CMM] 1.5 K/CMM (06/19/2011 08:54:00) Monocytes # [0.0-0.8 K/CMM] 0.3 K/CMM (06/19/2011 08:54:00) Eosinophils # [0.0-0.5 K/CMM] 0.1 K/CMM (06/19/2011 08:54:00) Basophils # [0.0-0.2 K/CMM] 0.0 K/CMM (06/19/2011 08:54:00) IMMUNOLOGY Most recent to oldest [Reference Range]: 1 CDC-HIV 1/2 Ab [Negative] Negative *NA* (06/19/2011 08:54:00) Source Chlam endocervix *NA* (06/19/2011 09:15:00) Chlam PCR [Negative] Negative (06/19/2011 09:15:00) Source Rolf Endocervix *NA* (06/19/2011 09:15:00) Gonorrhea PCR [Negative] Negative (06/19/2011 09:15:00) Microbiology Reports PROCEDURE:Wet Prep STATUS: Auth (Verified) BODY SITE: Vaginal Smear COLLECTED DATE/TIME: 06/19/2011 09:15:00 SOURCE: Genital FREE TEXT SOURCE: FINAL REPORTS Final Report No WBC's Seen No RBC's Seen Occasional Clue Cells Seen Occasional Epithelial Lisa ls Seen Few Bacteria Seen No Yeast Seen No Trichomonas Species Seen
--- OUTSIDE RECORDS SUMMARY | 2018-11-10 00:10 | XMS REPORT | CCD ---
Author Author Auto Generated Organization [facility] Address Unknown Phone Unavailable Care Team Providers Care Record Label Internship Name Role Phone Freeman Reaves CP Allergies, Adverse Reactions, Alerts Substance Reaction Status NKDA NKDA - No known drug allergies Active Problem List Condition Effective Dates Status Vaginal bleeding problem Active Vaginal delivery Active Medications Medication Instructions Start Date End Date Status ondansetron 4 mg, 2 mL, Route: IVP, Drug form: 03/25/2012 03/25/2012 Completed INJ, ONCE, Dosing Weight 81.818, kg, Priority: STAT, Start date: 03/25/12 9:35:00, Stop date: 03/25/12 9:35:00 hydromorphone 1 mg, 1 mL, Route: IVP, Drug form: 03/25/2012 03/25/2012 Completed SOLN, ONCE, Dosing Weight 81.818, kg, Priority: STAT, Start date: 03/25/12 9:35:00, Stop date: 03/25/12 9:35:00 Saline Flush 0.9% 5 mL, Route: IVP, Drug Form: INJ, 03/25/2012 03/25/2012 Discontinued Dosing Weight 81.818, kg, PRN, PRN Line Flush, Start date: 03/25/12 9:35:00, Duration: 24 hr, Stop date: 03/26/12 9:34:00 Phenergan 25 mg oral 25 mg, 1 tab, PO, Q6H, PRN, 15 tab, 03/25/2012 Ordered tablet Nausea, Substitution Allowed [place] 5/325 oral 1-2 tab, PO, Q4-6H, PRN, 15 tab, 03/25/2012 03/30/2012 Ordered tablet Pain, Substitution Allowed, Maintenance Dilaudid 0.5 mg, Route: IV, ONCE, Dosing 03/25/2012 03/25/2012 Completed Weight 81.818, kg, Start date: 03/25/12 11:17:00, Stop date: 03/25/12 11:17:00 Vital Signs Most recent to oldest [Reference Range]: 1 Height 162.56 cm (03/25/2012 09:06:00) Weight 81.818 kg (03/25/2012 09:06:00) Results URINALYSIS Most recent to oldest [Reference Range]: 1 UA Turbidity [Clear] Slight *ABN* (03/25/2012 09:41:00) UA Color Ltyellow *NA* (03/25/2012 09:41:00) UA pH [5.0-8.0] 7.0 (03/25/2012 09:41:00) UA Spec Grav [<=1.030] 1.011 (03/25/2012 09:41:00) UA Glucose [Negative mg/dL] Negative mg/dL *NA* (03/25/2012 09:41:00) UA Blood [Negative] Negative (03/25/2012 09:41:00) UA Ketones [Negative mg/dL] Negative mg/dL *NA* (03/25/2012 09:41:00) UA Protein [Negative mg/dL] Negative mg/dL (03/25/2012 09:41:00) UA Urobilinogen [0.1-1.0 mg/dL] <=1.0 mg/dL *NA* (03/25/2012 09:41:00) UA Bili [Negative] Negative *NA* (03/25/2012 09:41:00) UA Leuk Est [Negative] Moderate *ABN* (03/25/2012 09:41:00) UA Nitrite [Negative] Negative (03/25/2012 09:41:00) UA WBC [0-5 /HPF] 14 /HPF *HI* (03/25/2012 09:41:00) UA RBC [0-2 /HPF] 3 /HPF *HI* (03/25/2012 09:41:00) UA Bacteria [None Seen /HPF] Few /HPF *NA* (03/25/2012 09:41:00) UA Sq Epi [Few /LPF] Moderate /LPF *ABN* (03/25/2012 09:41:00) UA Renal Epi [<=0 /LPF] 1 /LPF *HI* (03/25/2012 09:41:00) UA Mucus [None Seen /LPF] Few /LPF *NA* (03/25/2012:41:00) CHEMISTRY Most recent to oldest [Reference Range]: 1 Sodium Lvl [135-145 mEq/L] 140 mEq/L (03/25/2012:41:00) Potassium Lvl [3.5-5.1 mEq/L] 3.9 mEq/L (03/25/2012:41:00) Chloride Lvl [95-109 mEq/L] 106 mEq/L (03/25/2012:41:00) CO2 [24-32 mEq/L] 25 mEq/L (03/25/2012:41:00) AGAP [10.0-20.0 mEq/L] 12.9 mEq/L (03/25/2012:41:00) Creatinine Lvl [0.5-1.4 mg/dL] 0.7 mg/dL (03/25/2012:41:00) eGFR 113 mL/min/1.73m2 1 *NA* (03/25/2012:41:00) BUN [7-22 mg/dL] 12 mg/dL (03/25/2012:41:00) B/C Ratio [6-25] 17 (03/25/2012:41:00) Glucose Lvl [70-99 mg/dL] 91 mg/dL 2 (03/25/2012:41:00) Total Protein [6.4-8.4 g/dL] 6.9 g/dL (03/25/2012:41:00) Albumin Lvl [3.5-5.0 g/dL] 3.8 g/dL (03/25/2012:41:00) Globulin [2.0-4.0 g/dL] 3.1 g/dL (03/25/2012:41:00) A/G Ratio [0.7-1.6] 1.2 (03/25/2012:41:00) Calcium Lvl [8.5-10.5 mg/dL] 8.8 mg/dL (03/25/2012:41:00) ALT [0-65 unit/L] 21 unit/L (03/25/2012::00) AST [0-37 unit/L] 12 unit/L (03/25/2012::) Alk Phos [39-136 unit/L] 75 unit/L (03/25/2012::00) Bili Total [0.2-1.3 mg/dL] 0.5 mg/dL (03/25/2012::00) Lipase Lvl [73-393 unit/L] 120 unit/L (03/25/2012::00) U Preg [Negative] Negative (03/25/2012::) 1Result Comment: The eGFR is calculated using [...] values reflect the clinical guidelines of the [place] [employer]. HEMATOLOGY Most recent to oldest [Reference Range]: 1 WBC [3.7-10.4 K/CMM] 6.3 K/CMM (03/25/2012::) RBC [4.20-5.40 M/CMM] 4.47 M/CMM (03/25/2012::) Hgb [12.0-16.0 g/dL] 13.4 g/dL (03/25/2012::) Hct [36.0-48.0 %] 38.6 % (03/25/2012::) MCV [81.0-99.0 fL] 86.4 fL (03/25/2012 09:41:00) MCH [27.0-31.0 pg] 29.9 pg (03/25/2012 09:41:00) MCHC [32.0-36.0 g/dL] 34.6 g/dL (03/25/2012 09:41:00) RDW [11.5-14.5 %] 14.0 % (03/25/2012 09:41:00) Platelet [133-450 K/CMM] 224 K/CMM (03/25/2012 09:41:00) MPV [7.4-10.4 fL] 8.2 fL (03/25/2012 09:41:00) Segs [45.0-75.0 %] 67.8 % (03/25/2012:41:00) Lymphocytes [20.0-40.0 %] 25.4 % (03/25/2012:41:00) Monocytes [2.0-12.0 %] 5.1 % (03/25/2012 09:41:00) Eosinophils [0.0-4.0 %] 1.1 % (03/25/2012 09:41:00) Basophils [0.0-1.0 %] 0.6 % (03/25/2012 09:41:00) Segs-Bands # [1.5-8.1 K/CMM] 4.3 K/CMM (03/25/2012 09:41:00) Lymphocytes # [1.0-5.5 K/CMM] 1.6 K/CMM (03/25/2012 09:41:00) Monocytes # [0.0-0.8 K/CMM] 0.3 K/CMM (03/25/2012 09:41:00) Eosinophils # [0.0-0.5 K/CMM] 0.1 K/CMM (03/25/2012 09:41:00) Basophils # [0.0-0.2 K/CMM] 0.0 K/CMM (03/25/2012 09:41:00) IMMUNOLOGY Most recent to oldest [Reference Range]: 1 Source Chlam endocervix *NA* (03/25/2012 11:15:00) Chlam PCR [Negative] Negative (03/25/2012 11:15:00) Source Rolf Endocervix *NA* (03/25/2012 11:15:00) Gonorrhea PCR [Negative] Negative (03/25/2012 11:15:00) Microbiology Reports PROCEDURE:Wet Prep STATUS: Auth (Verified) BODY SITE: Genital COLLECTED DATE/TIME: 03/25/2012 11:15:00 SOURCE: Genital FREE TEXT SOURCE: FINAL REPORTS Final Report Few WBC's Seen Rare RBC's Seen Occasional Epithelial Cells Seen No Fungal Elements (Hyphae) Seen No Trichomonas Seen No Clue Cells Seen
--- OUTSIDE RECORDS SUMMARY | 2018-11-10 00:10 | XMS REPORT | CCD ---
Author Author Auto Generated Organization [facility] Address Unknown Phone Unavailable Care Team Providers Care Panelboard Assembler Name Role Phone Edwin Ramos CP Allergies, Adverse Reactions, Alerts Substance Reaction Status NKDA NKDA - No known drug allergies Active Problem List Condition Effective Dates Status Vaginal bleeding problem Active Vaginal delivery Active Medications Medication Instructions Start Date End Date Status ondansetron 4 mg, Route: IVP, Drug form: INJ, 12/02/2011 12/02/2011 Completed ONCE, Priority: STAT, Start date: 12/02/11 10:44:00, Stop date: 12/02/11 10:44:00 Ultram 50 mg oral 1 - 2 tabs, PO, Q4-6H, PRN, 12 tab, 12/02/2011 Ordered tablet as needed for pain, Substitution Allowed ondansetron 4 mg 4 mg, 1 tab, PO, BID, 10 tab, 12/02/2011 Ordered oral tablet Substitution Allowed, TAB morphine Sulfate 4 mg, Route: IVP, ONCE, Priority: 12/02/2011 12/02/2011 Completed STAT, Start date: 12/02/11 10:43:00, Stop date: 12/02/11 10:43:00 Lomotil oral tablet 1 tab, PO, QID, PRN, 20 tab, for 12/02/2011 Ordered loose stool, Substitution Allowed, Soft Stop, TAB ondansetron 4 mg, Route: IVP, Drug form: INJ, 12/02/2011 12/02/2011 Completed ONCE, Priority: STAT, Start date: 12/02/11 11:42:00, Stop date: 12/02/11 11:42:00 morphine Sulfate 4 mg, Route: IVP, ONCE, Priority: 12/02/2011 12/02/2011 Completed STAT, Start date: 12/02/11 11:42:00, Stop date: 12/02/11 11:42:00 Vital Signs Most recent to oldest [Reference Range]: 1 Height 162.56 cm (12/02/2011 08:57:00) Weight 81.818 kg (12/02/2011 08:57:00) Results URINALYSIS Most recent to oldest [Reference Range]: 1 UA Turbidity [Clear] Slight *ABN* (12/02/2011 09:08:00) UA Color Ltyellow *NA* (12/02/2011 09:08:00) UA pH [5.0-8.0] 6.0 (12/02/2011 09:08:00) UA Spec Grav [<=1.030] 1.005 (12/02/2011 09:08:00) UA Glucose [Negative mg/dL] Negative mg/dL *NA* (12/02/2011 09:08:00) UA Blood [Negative] Moderate *ABN* (12/02/2011 09:08:00) UA Ketones [Negative mg/dL] Negative mg/dL *NA* (12/02/2011 09:08:00) UA Protein [Negative mg/dL] Negative mg/dL (12/02/2011 09:08:00) UA Urobilinogen [0.1-1.0 mg/dL] <=1.0 mg/dL *NA* (12/02/2011 09:08:00) UA Bili [Negative] Negative *NA* (12/02/2011 09:08:00) UA Leuk Est [Negative] Trace *ABN* (12/02/2011 09:08:00) UA Nitrite [Negative] Negative (12/02/2011 09:08:00) UA WBC [0-5 /HPF] 5 /HPF (12/02/2011 09:08:00) UA RBC [0-2 /HPF] 2 /HPF (12/02/2011 09:08:00) UA Bacteria [None Seen /HPF] Moderate /HPF *ABN* (12/02/2011 09:08:00) UA Sq Epi [Few /LPF] Few /LPF *NA* (12/02/2011 09:08:00) CHEMISTRY Most recent to oldest [Reference Range]: 1 U Preg [Negative] Negative (12/02/2011 09:08:00) Microbiology Reports PROCEDURE:Culture: Urine STATUS: In Progress BODY SITE: COLLECTED DATE/TIME: 12/02/2011 09:30:00 SOURCE: Urine, Clean Catch FREE TEXT SOURCE: PRELIMINARY REPORTS Preliminary Report Culture In Progress Preliminary Report 50,000 - 100,000 CFU/mL Gram Negative Rods Subculture In Progress
--- OUTSIDE RECORDS SUMMARY | 2018-11-10 00:10 | XMS REPORT | CCD ---
Author Author Auto Generated Organization [facility] Address Unknown Phone Unavailable Care Team Providers Care Solutions Architect Consultant Name Role Phone Roel Hopper CP Allergies, Adverse Reactions, Alerts Substance Reaction Status NKDA NKDA - No known drug allergies Active Problem List Condition Effective Dates Status Vaginal bleeding problem Active Vaginal delivery Active Medications Medication Instructions Start Date End Date Status Dilaudid 1 mg, Route: IV, ONCE, Dosing 07/15/2012 07/15/2012 Completed Weight 81.818, kg, Priority: STAT, Start date: 07/15/12 8:51:00, Stop date: 07/15/12 8:51:00 Dilaudid 1 mg, Route: IV, ONCE, Dosing 07/15/2012 07/15/2012 Completed Weight 81.818, kg, Start date: 07/15/12 12:05:00, Stop date: 07/15/12 12:05:00 ondansetron 4 mg, 2 mL, Route: IVP, Drug form: 07/15/2012 07/15/2012 Completed INJ, ONCE, Dosing Weight 81.818, kg, Priority: STAT, Start date: 07/15/12 7:43:00, Stop date: 07/15/12 7:43:00 hydromorphone 1 mg, 1 mL, Route: IVP, Drug form: 07/15/2012 07/15/2012 Completed SOLN, ONCE, Dosing Weight 81.818, kg, Priority: STAT, Start date: 07/15/12 7:43:00, Stop date: 07/15/12 7:43:00 Saline Flush 0.9% 5 mL, Route: IVP, Drug Form: INJ, 07/15/2012 07/15/2012 Discontinued Dosing Weight 81.818, kg, PRN, PRN Line Flush, Start date: 07/15/12 7:43:00, Duration: 24 hr, Stop date: 07/16/12 7:42:00 Sodium Chloride 0.9% 500 mL, 500 ml/hr, Route: IV, Drug 07/15/2012 07/15/2012 Completed (Bolus) IV Form: INJ, Dosing Weight 81.818, kg, ONCE, Bolus at 1,000 ml/hr, STAT, Start date: 07/15/12 7:43:00, Stop date: 07/15/12 7:43:00 Cipro 500 mg oral 500 mg, 1 tab, PO, Q12H, 20 tab, 07/15/2012 Ordered tablet Substitution Allowed, TAB [place] 5/325 oral 1 tab, PO, Q4H, PRN, 12 tab, for 07/15/2012 Ordered tablet pain, Substitution Allowed, Maintenance, TAB Vital Signs Most recent to oldest [Reference Range]: 1 Height 162.56 cm (07/15/2012 07:19:00) Weight 81.818 kg (07/15/2012 07:19:00) Results URINALYSIS Most recent to oldest [Reference Range]: 1 UA Turbidity [Clear] Slight *ABN* (07/15/2012 08:00:00) UA Color [Yellow] Yellow *NA* (07/15/2012 08:00:00) UA pH [5.0-8.0] 5.0 (07/15/2012 08:00:00) UA Spec Grav [<=1.030] 1.025 (07/15/2012 08:00:00) UA Glucose [Negative mg/dL] Negative mg/dL *NA* (07/15/2012 08:00:00) UA Blood [Negative] Small *ABN* (07/15/2012 08:00:00) UA Ketones [Negative mg/dL] Negative mg/dL *NA* (07/15/2012 08:00:00) UA Protein [Negative mg/dL] Negative mg/dL (07/15/2012 08:00:00) UA Urobilinogen [0.1-1.0 mg/dL] <=1.0 mg/dL *NA* (07/15/2012 08:00:00) UA Bili [Negative] Negative *NA* (07/15/2012 08:00:00) UA Leuk Est [Negative] Trace *ABN* (07/15/2012 08:00:00) UA Nitrite [Negative] Negative (07/15/2012 08:00:00) UA WBC [0-5 /HPF] 5 /HPF (07/15/2012 08:00:00) UA RBC [0-2 /HPF] 11 /HPF *HI* (07/15/2012 08:00:00) UA Bacteria [None Seen /HPF] Moderate /HPF *ABN* (07/15/2012 08:00:00) UA Sq Epi [Few /LPF] Few /LPF *NA* (07/15/2012 08:00:00) UA Mucus [None Seen /LPF] Few /LPF *NA* (07/15/2012 08:00:00) CHEMISTRY Most recent to oldest [Reference Range]: 1 Sodium Lvl [135-145 mEq/L] 140 mEq/L (07/15/2012 08:00:00) Potassium Lvl [3.5-5.1 mEq/L] 3.6 mEq/L (07/15/2012 08:00:00) Chloride Lvl [95-109 mEq/L] 109 mEq/L (07/15/2012 08:00:00) CO2 [24-32 mEq/L] 24 mEq/L (07/15/2012 08:00:00) AGAP [10.0-20.0 mEq/L] 10.6 mEq/L (07/15/2012 08:00:00) Creatinine Lvl [0.5-1.4 mg/dL] 0.8 mg/dL (07/15/2012 08:00:00) eGFR 96 mL/min/1.73m2 1 *NA* (07/15/2012 08:00:00) BUN [7-22 mg/dL] 14 mg/dL (07/15/2012 08:00:00) B/C Ratio [6-25] 18 (07/15/2012 08:00:00) Glucose Lvl [70-99 mg/dL] 92 mg/dL 2 (07/15/2012 08:00:00) Total Protein [6.4-8.4 g/dL] 6.8 g/dL (07/15/2012 08:00:00) Albumin Lvl [3.5-5.0 g/dL] 3.7 g/dL (07/15/2012 08:00:00) Globulin [2.0-4.0 g/dL] 3.1 g/dL (07/15/2012 08:00:00) A/G Ratio [0.7-1.6] 1.2 (07/15/2012 08:00:00) Calcium Lvl [8.5-10.5 mg/dL] 8.3 mg/dL *LOW* (07/15/2012 08:00:00) ALT [0-65 unit/L] 20 unit/L (07/15/2012 08:00:00) AST [0-37 unit/L] 11 unit/L (07/15/2012 08:00:00) Alk Phos [39-136 unit/L] 75 unit/L (07/15/2012 08:00:00) Bili Total [0.2-1.3 mg/dL] 0.3 mg/dL (07/15/2012 08:00:00) Total CK [12-191 unit/L] 75 unit/L (07/15/2012 08:00:00) CK MB [0.5-3.6 ng/mL] 0.7 ng/mL (07/15/2012 08:00:00) CK MB Index [0.0-2.5] 0.9 (07/15/2012:00:00) Troponin-I [0.00-0.40 ng/mL] <0.02 ng/mL (07/15/2012 08:00:00) S Preg [Negative] Negative *NA* (07/15/2012 08:00:00) 1Result Comment: The eGFR is calculated using [...] values reflect the clinical guidelines of the [place] [employer]. HEMATOLOGY Most recent to oldest [Reference Range]: 1 WBC [3.7-10.4 K/CMM] 5.4 K/CMM (07/15/2012 08:00:00) RBC [4.20-5.40 M/CMM] 4.25 M/CMM (07/15/2012 08:00:00) Hgb [12.0-16.0 g/dL] 12.3 g/dL (07/15/2012 08:00:00) Hct [36.0-48.0 %] 36.3 % (07/15/2012 08:00:00) MCV [81.0-99.0 fL] 85.5 fL (07/15/2012 08:00:00) MCH [27.0-31.0 pg] 29.0 pg (07/15/2012 08:00:00) MCHC [32.0-36.0 g/dL] 34.0 g/dL (07/15/2012 08:00:00) RDW [11.5-14.5 %] 13.6 % (07/15/2012 08:00:00) Platelet [133-450 K/CMM] 233 K/CMM (07/15/2012 08:00:00) MPV [7.4-10.4 fL] 8.0 fL (07/15/2012 08:00:00) Segs [45.0-75.0 %] 68.1 % (07/15/2012 08:00:00) Lymphocytes [20.0-40.0 %] 24.9 % (07/15/2012 08:00:00) Monocytes [2.0-12.0 %] 5.5 % (07/15/2012 08:00:00) Eosinophils [0.0-4.0 %] 1.1 % (07/15/2012 08:00:00) Basophils [0.0-1.0 %] 0.4 % (07/15/2012 08:00:00) Segs-Bands # [1.5-8.1 K/CMM] 3.7 K/CMM (07/15/2012 08:00:00) Lymphocytes # [1.0-5.5 K/CMM] 1.3 K/CMM (07/15/2012 08:00:00) Monocytes # [0.0-0.8 K/CMM] 0.3 K/CMM (07/15/2012 08:00:00) Eosinophils # [0.0-0.5 K/CMM] 0.1 K/CMM (07/15/2012 08:00:00) Basophils # [0.0-0.2 K/CMM] 0.0 K/CMM (07/15/2012 08:00:00)
--- OUTSIDE RECORDS SUMMARY | 2018-11-10 00:11 | XMS REPORT | Summary of Care ---
Author Author [facility] Organization [facility] Address Unknown Phone Unavailable Encounter BELIA Johnson(YANY) [id number] Date(s): 01/28/15 - 01/28/15 [facility] [address] [place] [address]- [phone] Discharge Diagnosis: Benign hematuria Discharge Diagnosis: Female pelvic pain Discharge Disposition: Home Attending Physician: Diana Randle DO Vital Signs Most recent to 1 2 oldest [Reference Range]: Temperature Oral 98.2 DegF 98.3 DegF [96.4-99.1 DegF] (01/28/15 12:09 PM) (01/28/15 8:16 AM) Most recent to 1 2 oldest [Reference Range]: Blood Pressure 111/75 mmHg 113/67 mmHg [90-140/60-90 mmHg] (01/28/15 12:09 PM) (01/28/15 8:16 AM) Most recent to 1 2 oldest [Reference Range]: Respiratory Rate 18 BRMIN 18 BRMIN [14-20 BRMIN] (01/28/15 12:09 PM) (01/28/15 8:16 AM) Most recent to 1 2 oldest [Reference Range]: Peripheral Pulse 60 bpm 77 bpm Rate [60-100 bpm] (01/28/15 12:09 PM) (01/28/15 8:16 AM) Most recent to 1 2 oldest [Reference Range]: Weight 81.818 kg (01/28/15 8:16 AM) Problem List Condition Effective Dates Status Health Status Informant Kidney Active stone(Confirmed) Vaginal bleeding Active problem(Confirmed) Vaginal Active delivery(Confirmed) Allergies, Adverse Reactions, Alerts Substance Reaction Severity Status NKDA NKDA - No known drug allergies Active Medications morphine Sulfate 4 mg, Route: IVP, Drug form: INJ, ONCE, Dosing Weight 81.818, kg, Priority: STAT , Start date: 01/28/15 10:08:00, Stop date: 01/28/15 10:08:00 Start Date: 01/28/15 Stop Date: 01/28/15 Status: Completed morphine Sulfate 4 mg, Route: IVP, Drug form: INJ, ONCE, Dosing Weight 81.818, kg, Priority: STAT , Start date: 01/28/15 8:48:00, Stop date: 01/28/15 8:48:00 Start Date: 01/28/15 Stop Date: 01/28/15 Status: Completed NS (Bolus) IV 1,000 mL, 1,000 ml/hr, Infuse Over: 1 hr, Route: IV, ONCE, Priority: STAT, Dosin g Weight 81.818 kg, Start date: 01/28/15 8:48:00, Duration: 1 doses or times, St op date: 01/28/15 8:48:00 Start Date: 01/28/15 Stop Date: 01/28/15 Status: Completed Ultram 50 mg oral tablet 50 mg=1 tab, PO, Q4H, PRN pain, X 5 day, # 30 tab, 0 Refill(s) Start Date: 01/28/15 Stop Date: 02/02/15 Status: Ordered Zofran 4 mg, Route: IVP, Drug form: INJ, ONCE, Dosing Weight 81.818, kg, Priority: STAT , Start date: 01/28/15 10:08:00, Stop date: 01/28/15 10:08:00 Start Date: 01/28/15 Stop Date: 01/28/15 Status: Completed Zofran 4 mg, Route: IVP, Drug form: INJ, ONCE, Dosing Weight 81.818, kg, Priority: STAT , Start date: 01/28/15 8:48:00, Stop date: 01/28/15 8:48:00 Start Date: 01/28/15 Stop Date: 01/28/15 Status: Completed Zofran ODT 4 mg oral tablet, disintegrating 4 mg=1 tab, PO, BID, PRN Nausea and Vomiting, Dissolve tab under tongue, X 3 day , # 10 tab, 0 Refill(s), Pharmacy: [facility] [id number] Special Instructions: Dissolve tab under tongue Start Date: 01/28/15 Stop Date: 01/31/15 Status: Ordered Results ELECTROLYTES Most recent to 1 oldest [Reference Range]: Sodium Lvl [135-145 140 mEq/L mEq/L] (01/28/15 8:46 AM) Potassium Lvl 3.7 mEq/L [3.5-5.1 mEq/L] (01/28/15 8:46 AM) Chloride Lvl [95-109 109 mEq/L mEq/L] (01/28/15 8:46 AM) CO2 [24-32 mEq/L] 23 mEq/L *LOW* (01/28/15 8:46 AM) AGAP [10.0-20.0 11.7 mEq/L mEq/L] (01/28/15 8:46 AM) CHEM PANEL Most recent to 1 oldest [Reference Range]: Creatinine Lvl 0.7 mg/dL [0.5-1.4 mg/dL] (01/28/15 8:46 AM) eGFR 111 mL/min/1.73m2 1 *NA* (01/28/15 8:46 AM) BUN [7-22 mg/dL] 13 mg/dL (01/28/15 8:46 AM) B/C Ratio [6-25] 19 (01/28/15 8:46 AM) Glucose Lvl [70-99 103 mg/dL mg/dL] *HI* (01/28/15 8:46 AM) Total Protein 6.8 g/dL [6.4-8.4 g/dL] (01/28/15 8:46 AM) Albumin Lvl [3.5-5.0 3.6 g/dL g/dL] (01/28/15 8:46 AM) Globulin [2.0-4.0 3.2 g/dL g/dL] (01/28/15 8:46 AM) A/G Ratio [0.7-1.6] 1.1 (01/28/15 8:46 AM) Calcium Lvl 8.7 mg/dL [8.5-10.5 mg/dL] (01/28/15 8:46 AM) ALT [0-65 unit/L] 31 unit/L (01/28/15 8:46 AM) AST [0-37 unit/L] 11 unit/L (01/28/15 8:46 AM) Alk Phos [39-136 73 unit/L unit/L] (01/28/15 8:46 AM) Bili Total [0.2-1.3 0.6 mg/dL mg/dL] (01/28/15 8:46 AM) Lipase Lvl [73-393 186 unit/L unit/L] (01/28/15 8:46 AM) 1Result Comment: The eGFR is calculated [...] oldest [Reference Range]: U Preg [Negative] Negative (01/28/15 8:46 AM) URINE AND STOOL Most recent to 1 oldest [Reference Range]: UA Turbidity [Clear] Clear (01/28/15 8:46 AM) UA Color [Yellow] Yellow *NA* (01/28/15 8:46 AM) UA pH [5.0-8.0] 6.0 (01/28/15 8:46 AM) UA Spec Grav 1.020 [<=1.030] (01/28/15 8:46 AM) UA Glucose Negative [Negative] (01/28/15 8:46 AM) UA Blood [Negative] Small *ABN* (01/28/15 8:46 AM) UA Ketones Negative [Negative] *NA* (01/28/15 8:46 AM) UA Protein Negative [Negative] (01/28/15 8:46 AM) UA Urobilinogen 0.2 EU/dL [0.1-1.0 EU/dL] (01/28/15 8:46 AM) UA Bili [Negative] Negative *NA* (01/28/15 8:46 AM) UA Leuk Est Negative [Negative] (01/28/15 8:46 AM) UA Nitrite Negative [Negative] (01/28/15 8:46 AM) UA WBC [0-5 /HPF] 2 /HPF (01/28/15 8:46 AM) UA RBC [0-2 /HPF] 4 /HPF *HI* (01/28/15 8:46 AM) UA Bacteria [None Occasional /HPF Seen /HPF] *NA* (01/28/15 8:46 AM) UA Sq Epi [Few /LPF] Occasional /LPF *NA* (01/28/15 8:46 AM) UA Mucus [None Seen Few /LPF /LPF] *NA* (01/28/15 8:46 AM) HEMATOLOGY Most recent to 1 oldest [Reference Range]: WBC [3.7-10.4 K/CMM] 6.1 K/CMM (01/28/15 8:46 AM) RBC [4.20-5.40 4.49 M/CMM M/CMM] (01/28/15 8:46 AM) Hgb [12.0-16.0 g/dL] 13.7 g/dL (01/28/15 8:46 AM) Hct [36.0-48.0 %] 38.9 % (01/28/15 8:46 AM) MCV [80.0-98.0 fL] 86.7 fL (01/28/15 8:46 AM) MCH [27.0-31.0 pg] 30.5 pg (01/28/15 8:46 AM) MCHC [32.0-36.0 35.2 g/dL g/dL] (01/28/15 8:46 AM) RDW [11.5-14.5 %] 13.2 % (01/28/15 8:46 AM) Platelet [133-450 210 K/CMM K/CMM] (01/28/15 8:46 AM) MPV [7.4-10.4 fL] 8.2 fL (01/28/15 8:46 AM) Segs [45.0-75.0 %] 67.4 % (01/28/15 8:46 AM) Lymphocytes 24.1 % [20.0-40.0 %] (01/28/15 8:46 AM) Monocytes [2.0-12.0 5.7 % %] (01/28/15 8:46 AM) Eosinophils [0.0-4.0 1.8 % %] (01/28/15 8:46 AM) Basophils [0.0-1.0 1.0 % %] (01/28/15 8:46 AM) Segs-Bands # 4.1 K/CMM [1.5-8.1 K/CMM] (01/28/15 8:46 AM) Lymphocytes # 1.5 K/CMM [1.0-5.5 K/CMM] (01/28/15 8:46 AM) Monocytes # [0.0-0.8 0.3 K/CMM K/CMM] (01/28/15 8:46 AM) Eosinophils # 0.1 K/CMM [0.0-0.5 K/CMM] (01/28/15 8:46 AM) Basophils # [0.0-0.2 0.1 K/CMM K/CMM] (01/28/15 8:46 AM) Immunizations No data available for this section Procedures Procedure Date Related Diagnosis Body Site Cholecystectomy Cholecystectomy Hysterectomy Lithotripsy of kidney Tubal ligation Social History Social History Type Response Substance Abuse Use: None. Alcohol Current, Frequency: 1-2 times per month. Smoking Status Former smoker; Exposure to Tobacco Smoke None; Cigarette Smoking Last 365 Days No; Reg Smoking Cessation Counseling No Assessment and Plan No data available for this section
--- OUTSIDE RECORDS SUMMARY | 2018-11-10 00:11 | XMS REPORT | Summary of Care ---
Author Author [facility] Organization [facility] Address Unknown Phone Unavailable Encounter BELIA Johnson(YANY) [id number] Date(s): 01/13/15 - 01/13/15 [facility] [address] [place] [address]- Discharge Diagnosis: Nausea and vomiting in adult Discharge Diagnosis: Abdominal pain Discharge Diagnosis: Urinary tract infection Discharge Disposition: Home Attending Physician: Diana Randle DO Vital Signs 1 2 3 Most recent to oldest [Reference Range]: 162.56 cm (01/13/15 8:06 AM) Height 1 2 3 Most recent to oldest [Reference Range]: 98.2 DegF (01/13/15 12:04 PM) 98.4 DegF (01/13/15 8:06 AM) Temperature Oral [96.4-99.1 DegF] 1 2 3 Most recent to oldest [Reference Range]: 119/68 mmHg (01/13/15 1:15 PM) 111/58 mmHg (01/13/15 12:04 PM) 101/64 mmHg (01/13/15 11:12 AM) Blood Pressure [90-140/60-90 mmHg] 1 2 3 Most recent to oldest [Reference Range]: 20 BRMIN (01/13/15 1:15 PM) 18 BRMIN (01/13/15 12:04 PM) 18 BRMIN (01/13/15 11:12 AM) Respiratory Rate [14-20 BRMIN] 1 2 3 Most recent to oldest [Reference Range]: 68 bpm (01/13/15 1:15 PM) 59 bpm *LOW* (01/13/15 12:04 PM) 63 bpm (01/13/15 11:12 AM) Peripheral Pulse Rate [60-100 bpm] 1 2 3 Most recent to oldest [Reference Range]: 81.818 kg (01/13/15 8:06 AM) Weight 1 2 3 Most recent to oldest [Reference Range]: 30.96 m2 (01/13/15 8:06 AM) Body Mass Index Problem List Condition Effective Dates Status Health Status Informant Kidney Active stone(Confirmed) Vaginal bleeding Active problem(Confirmed) Vaginal Active delivery(Confirmed) Allergies, Adverse Reactions, Alerts Substance Reaction Severity Status NKDA NKDA - No known drug allergies Active Medications Macrodantin 100 mg oral capsule 100 mg=1 cap, PO, QID, X 10 day, # 40 cap, 0 Refill(s) Start Date: 01/13/15 Stop Date: 01/23/15 Status: Ordered morphine Sulfate 4 mg, Route: IVP, ONCE, Dosing Weight 81.818, kg, Priority: STAT, Start date: 8:23:00, Stop date: 01/13/15 8:23:00 Start Date: 01/13/15 Stop Date: 01/13/15 Status: Completed morphine Sulfate 4 mg, Route: IVP, ONCE, Dosing Weight 81.818, kg, Start date: 01/13/15 10:59:00, Stop date: 01/13/15 10:59:00 Start Date: 01/13/15 Stop Date: 01/13/15 Status: Completed ondansetron 4 mg, Route: IVP, ONCE, Dosing Weight 81.818, kg, Priority: STAT, Start date: 8:23:00, Stop date: 01/13/15 8:23:00 Start Date: 01/13/15 Stop Date: 01/13/15 Status: Completed Saline Flush 0.9% 10 mL, Route: IVP, Drug Form: INJ, Dosing Weight 81.818, kg, PRN, PRN Line Flush , Start date: 01/13/15 8:23:00, Duration: 30 day, Stop date: 02/12/15 8:22:00 Notes: (Same as: BD Posiflush) Start Date: 01/13/15 Stop Date: 01/13/15 Status: Discontinued Sodium Chloride 0.9% (Bolus) IV 1,000 mL, Infuse Over: 1 hr, Route: IV, ONCE, Priority: STAT, Dosing Weight 81.8 18 kg, Start date: 01/13/15 8:23:00, Duration: 1 doses or times, Stop date: 12/30 10/13 8:23:00 Start Date: 01/13/15 Stop Date: 01/13/15 Status: Completed Tylenol with Codeine #3 oral tablet 1 - 2 tab, PO, Q4H, PRN Pain, X 3 day, # 20 tab, 0 Refill(s) Start Date: 01/13/15 Stop Date: 01/16/15 Status: Ordered Zofran 4 mg, Route: IVP, Drug form: INJ, ONCE, Dosing Weight 81.818, kg, Priority: STAT , Start date: 01/13/15 11:55:00, Stop date: 01/13/15 11:55:00 Start Date: 01/13/15 Stop Date: 01/13/15 Status: Discontinued Zofran 4 mg, Route: IVP, ONCE, Dosing Weight 81.818, kg, Start date: 01/13/15 11:53:00, Stop date: 01/13/15 11:53:00 Start Date: 01/13/15 Stop Date: 01/13/15 Status: Completed Zofran ODT 4 mg oral tablet, disintegrating 4 mg=1 tab, PO, TID, PRN as needed for nausea/vomiting, (allow tablet to dissolv e on tongue), # 10 tab, 0 Refill(s) Special Instructions: (allow tablet to dissolve on tongue) Start Date: 01/13/15 Stop Date: 01/17/15 Status: Ordered Results ELECTROLYTES Most recent to 1 oldest [Reference Range]: Sodium Lvl [135-145 141 mEq/L mEq/L] (01/13/15 8:38 AM) Potassium Lvl 4.1 mEq/L [3.5-5.1 mEq/L] (01/13/15 8:38 AM) Chloride Lvl [95-109 111 mEq/L mEq/L] *HI* (01/13/15 8:38 AM) CO2 [24-32 mEq/L] 21 mEq/L *LOW* (01/13/15 8:38 AM) AGAP [10.0-20.0 13.1 mEq/L mEq/L] (01/13/15 8:38 AM) CHEM PANEL Most recent to 1 oldest [Reference Range]: Creatinine Lvl 0.9 mg/dL [0.5-1.4 mg/dL] (01/13/15 8:38 AM) eGFR 82 mL/min/1.73m2 1 *NA* (01/13/15 8:38 AM) BUN [7-22 mg/dL] 12 mg/dL (01/13/15 8:38 AM) B/C Ratio [6-25] 13 (01/13/15 8:38 AM) Glucose Lvl [70-99 96 mg/dL mg/dL] (01/13/15 8:38 AM) Total Protein 6.6 g/dL [6.4-8.4 g/dL] (01/13/15 8:38 AM) Albumin Lvl [3.5-5.0 3.5 g/dL g/dL] (01/13/15 8:38 AM) Globulin [2.0-4.0 3.1 g/dL g/dL] (01/13/15 8:38 AM) A/G Ratio [0.7-1.6] 1.1 (01/13/15 8:38 AM) Calcium Lvl 8.2 mg/dL [8.5-10.5 mg/dL] *LOW* (01/13/15 8:38 AM) ALT [0-65 unit/L] 17 unit/L (01/13/15 8:38 AM) AST [0-37 unit/L] 8 unit/L (01/13/15 8:38 AM) Alk Phos [39-136 64 unit/L unit/L] (01/13/15 8:38 AM) Bili Total [0.2-1.3 0.4 mg/dL mg/dL] (01/13/15 8:38 AM) Amylase Lvl [25-115 76 unit/L unit/L] (01/13/15 8:38 AM) Lipase Lvl [73-393 251 unit/L unit/L] (01/13/15 8:38 AM) 1Result Comment: The eGFR is calculated [...] oldest [Reference Range]: U Preg [Negative] Negative (01/13/15 8:38 AM) URINE AND STOOL Most recent to 1 oldest [Reference Range]: UA Turbidity [Clear] Clear (01/13/15 8:38 AM) UA Color Ltyellow *NA* (01/13/15 8:38 AM) UA pH [5.0-8.0] 6.0 (01/13/15 8:38 AM) UA Spec Grav 1.005 [<=1.030] (01/13/15 8:38 AM) UA Glucose [Negative Negative mg/dL mg/dL] *NA* (01/13/15 8:38 AM) UA Blood [Negative] Small *ABN* (01/13/15 8:38 AM) UA Ketones [Negative Negative mg/dL mg/dL] *NA* (01/13/15 8:38 AM) UA Protein [Negative Negative mg/dL mg/dL] (01/13/15 8:38 AM) UA Urobilinogen <=1.0 mg/dL [0.1-1.0 mg/dL] *NA* (01/13/15 8:38 AM) UA Bili [Negative] Negative *NA* (01/13/15 8:38 AM) UA Leuk Est Moderate [Negative] *ABN* (01/13/15 8:38 AM) UA Nitrite Negative [Negative] (01/13/15 8:38 AM) UA WBC [0-5 /HPF] 31 /HPF *HI* (01/13/15 8:38 AM) UA RBC [0-2 /HPF] 4 /HPF *HI* (01/13/15 8:38 AM) UA Bacteria [None Occasional /HPF Seen /HPF] *NA* (01/13/15 8:38 AM) UA Sq Epi [Few /LPF] Occasional /LPF *NA* (01/13/15 8:38 AM) HEMATOLOGY Most recent to 1 oldest [Reference Range]: WBC [3.7-10.4 K/CMM] 5.8 K/CMM (01/13/15 8:38 AM) RBC [4.20-5.40 4.54 M/CMM M/CMM] (01/13/15 8:38 AM) Hgb [12.0-16.0 g/dL] 13.5 g/dL (01/13/15 8:38 AM) Hct [36.0-48.0 %] 39.6 % (01/13/15 8:38 AM) MCV [80.0-98.0 fL] 87.2 fL (01/13/15 8:38 AM) MCH [27.0-31.0 pg] 29.7 pg (01/13/15 8:38 AM) MCHC [32.0-36.0 34.1 g/dL g/dL] (01/13/15 8:38 AM) RDW [11.5-14.5 %] 14.2 % (01/13/15 8:38 AM) Platelet [133-450 214 K/CMM K/CMM] (01/13/15 8:38 AM) MPV [7.4-10.4 fL] 8.2 fL (01/13/15 8:38 AM) Segs [45.0-75.0 %] 66.6 % (01/13/15 8:38 AM) Lymphocytes 24.7 % [20.0-40.0 %] (01/13/15 8:38 AM) Monocytes [2.0-12.0 6.0 % %] (01/13/15 8:38 AM) Eosinophils [0.0-4.0 1.8 % %] (01/13/15 8:38 AM) Basophils [0.0-1.0 0.9 % %] (01/13/15 8:38 AM) Segs-Bands # 3.8 K/CMM [1.5-8.1 K/CMM] (01/13/15 8:38 AM) Lymphocytes # 1.4 K/CMM [1.0-5.5 K/CMM] (01/13/15 8:38 AM) Monocytes # [0.0-0.8 0.3 K/CMM K/CMM] (01/13/15 8:38 AM) Eosinophils # 0.1 K/CMM [0.0-0.5 K/CMM] (01/13/15 8:38 AM) Basophils # [0.0-0.2 0.1 K/CMM K/CMM] (01/13/15 8:38 AM) Immunizations No data available for this [...]
--- OUTSIDE RECORDS SUMMARY | 2018-11-10 00:11 | XMS REPORT | Summary of Care ---
Author Organization Unknown Address Unknown Phone Unavailable Encounter BELIA Johnson(YANY) [id number] Date(s): 11/21/14 - 11/21/14 [facility] [address] [place] [address]- [phone] Discharge Diagnosis: Flank pain Discharge Diagnosis: Back pain Discharge Diagnosis: Nephrolithiasis Discharge Disposition: Home Physician Attending: Kye Victoria MD Vital Signs 1 2 3 Most recent to oldest [Reference Range]: 162.56 cm (11/21/14 11:23 AM) Height 98.4 DegF (11/21/14 3:36 PM) 98.4 DegF (11/21/14 11:23 AM) Temperature Oral [96.4-99.1 DegF] 99/61 mmHg (11/21/14 3:36 PM) 98/68 mmHg (11/21/14 2:01 PM) 117/80 mmHg (11/21/14 11:23 AM) Blood Pressure [90-140/60-90 mmHg] 18 BRMIN (11/21/14 3:36 PM) 17 BRMIN (11/21/14 2:01 PM) 18 BRMIN (11/21/14 11:23 AM) Respiratory Rate [14-20 BRMIN] 70 bpm (11/21/14 3:36 PM) 64 bpm (11/21/14 2:01 PM) 77 bpm (11/21/14 11:23 AM) Peripheral Pulse Rate [60-100 bpm] 81.818 kg (11/21/14 11:23 AM) Weight 30.96 m2 (11/21/14 11:23 AM) Body Mass Index Problem List Condition Effective Dates Status Health Status Informant Kidney Active stone(Confirmed) Vaginal bleeding Active problem(Confirmed) Vaginal Active delivery(Confirmed) Allergies, Adverse Reactions, Alerts Substance Reaction Severity Status NKDA NKDA - No known drug allergies Active Medications ketOROLAC 30 mg/mL injectable solution 30 mg, Route: IV, ONCE, Dosing Weight 81.818, kg, Start date: 11/21/14 12:34:00, Stop date: 11/21/14 12:34:00 Start Date: 11/21/14 Stop Date: 11/21/14 Status: Completed Macrobid 100 mg oral capsule 100 mg=1 cap, PO, BID, X 7 day, # 14 cap, 0 Refill(s) Start Date: 11/21/14 Stop Date: 11/28/14 Status: Ordered morphine Sulfate 4 mg, 2 mL, Route: IVP, Drug form: INJ, ONCE, Dosing Weight 81.818, kg, Start da te: 11/21/14 11:41:00, Stop date: 11/21/14 11:41:00 Notes: (Same as:MORPhine Sulfate) Start Date: 11/21/14 Stop Date: 11/21/14 Status: Completed Harmans 10/325 oral tablet 1 tab, Route: PO, Dosing Weight 81.818, kg, ONCE, Start date: 11/21/14 14:03:00, Stop date: 11/21/14 14:03:00 Start Date: 11/21/14 Stop Date: 11/21/14 Status: Completed NS (Bolus) IV 1,000 mL, 1,000 ml/hr, Infuse Over: 1 hr, Route: IV, 1,000, Drug form: INJ, ONCE , Priority: STAT, Dosing Weight 81.818 kg, Start date: 11/21/14 11:41:00, Durati on: 1 doses or times, Stop date: 11/21/14 11:41:00 Start Date: 11/21/14 Stop Date: 11/21/14 Status: Completed Zofran 4 mg, 2 mL, Route: IVP, Drug form: INJ, ONCE, Dosing Weight 81.818, kg, Priority : STAT, Start date: 11/21/14 11:41:00, Stop date: 11/21/14 11:41:00 Notes: (Same as: Zofran) MEDICATION WASTE Product Size: 4 mgProduct Was luisito: ___ mg Start Date: 11/21/14 Stop Date: 11/21/14 Status: Completed Results ELECTROLYTES Most recent to 1 oldest [Reference Range]: Sodium Lvl [135-145 139 mEq/L mEq/L] (11/21/14 12:00 PM) Potassium Lvl 4.1 mEq/L [3.5-5.1 mEq/L] (11/21/14 12:00 PM) Chloride Lvl [95-109 107 mEq/L mEq/L] (11/21/14 12:00 PM) CO2 [24-32 mEq/L] 23 mEq/L *LOW* (11/21/14:00 PM) AGAP [10.0-20.0 13.1 mEq/L mEq/L] (11/21/14 12:00 PM) CHEM PANEL Most recent to 1 oldest [Reference Range]: Creatinine Lvl 0.9 mg/dL [0.5-1.4 mg/dL] (11/21/14 12:00 PM) eGFR 83 mL/min/1.73m2 1 *NA* (11/21/14:00 PM) BUN [7-22 mg/dL] 15 mg/dL (11/21/14 12:00 PM) B/C Ratio [6-25] 17 (11/21/14 12:00 PM) Glucose Lvl [70-99 93 mg/dL 2 mg/dL] (11/21/14 12:00 PM) Total Protein 7.2 g/dL [6.4-8.4 g/dL] (11/21/14 12:00 PM) Albumin Lvl [3.5-5.0 3.8 g/dL g/dL] (11/21/14 12:00 PM) Globulin [2.0-4.0 3.4 g/dL g/dL] (11/21/14 12:00 PM) A/G Ratio [0.7-1.6] 1.1 (11/21/14 12:00 PM) Calcium Lvl 8.1 mg/dL [8.5-10.5 mg/dL] *LOW* (11/21/14 12:00 PM) ALT [0-65 unit/L] 19 unit/L (11/21/14 12:00 PM) AST [0-37 unit/L] 12 unit/L (11/21/14 12:00 PM) Alk Phos [39-136 77 unit/L unit/L] (11/21/14 12:00 PM) Bili Total [0.2-1.3 0.8 mg/dL mg/dL] (11/21/14 12:00 PM) 1Result Comment: The eGFR is calculated [...] values reflect the clinical guidelines of the [employer]. URINE CHEM Most recent to 1 oldest [Reference Range]: U Preg [Negative] Negative (11/21/14 12:00 PM) URINE AND STOOL Most recent to 1 oldest [Reference Range]: UA Turbidity [Clear] Clear (11/21/14 12:00 PM) UA Color Ltyellow *NA* (11/21/14 12:00 PM) UA pH [5.0-8.0] 6.0 (11/21/14 12:00 PM) UA Spec Grav 1.010 [<=1.030] (11/21/14 12:00 PM) UA Glucose [Negative Negative mg/dL mg/dL] *NA* (11/21/14 12:00 PM) UA Blood [Negative] Small *ABN* (11/21/14 12:00 PM) UA Ketones [Negative Negative mg/dL mg/dL] *NA* (11/21/14 12:00 PM) UA Protein [Negative Negative mg/dL mg/dL] (11/21/14 12:00 PM) UA Urobilinogen <=1.0 mg/dL [0.1-1.0 mg/dL] *NA* (11/21/14 12:00 PM) UA Bili [Negative] Negative *NA* (11/21/14 12:00 PM) UA Leuk Est Small [Negative] *ABN* (11/21/14 12:00 PM) UA Nitrite Negative [Negative] (11/21/14 12:00 PM) UA WBC [0-5 /HPF] 14 /HPF *HI* (11/21/14 12:00 PM) UA RBC [0-2 /HPF] 6 /HPF *HI* (11/21/14 12:00 PM) UA Bacteria [None Few /HPF Seen /HPF] *NA* (11/21/14 12:00 PM) UA Sq Epi [Few /LPF] Few /LPF *NA* (11/21/14 12:00 PM) UA Mucus [None Seen Few /LPF /LPF] *NA* (11/21/14 12:00 PM) HEMATOLOGY Most recent to 1 oldest [Reference Range]: WBC [3.7-10.4 K/CMM] 6.2 K/CMM (11/21/14 12:00 PM) RBC [4.20-5.40 4.84 M/CMM M/CMM] (11/21/14 12:00 PM) Hgb [12.0-16.0 g/dL] 14.7 g/dL (11/21/14 12:00 PM) Hct [36.0-48.0 %] 41.8 % (11/21/14 12:00 PM) MCV [80.0-98.0 fL] 86.2 fL (11/21/14 12:00 PM) MCH [27.0-31.0 pg] 30.4 pg (11/21/14 12:00 PM) MCHC [32.0-36.0 35.3 g/dL g/dL] (11/21/14 12:00 PM) RDW [11.5-14.5 %] 14.3 % (11/21/14 12:00 PM) Platelet [133-450 203 K/CMM K/CMM] (11/21/14 12:00 PM) MPV [7.4-10.4 fL] 8.6 fL (11/21/14 12:00 PM) Segs [45.0-75.0 %] 63.7 % (11/21/14 12:00 PM) Lymphocytes 26.9 % [20.0-40.0 %] (11/21/14 12:00 PM) Monocytes [2.0-12.0 7.0 % %] (11/21/14 12:00 PM) Eosinophils [0.0-4.0 1.4 % %] (11/21/14 12:00 PM) Basophils [0.0-1.0 1.0 % %] (11/21/14 12:00 PM) Segs-Bands # 4.0 K/CMM [1.5-8.1 K/CMM] (11/21/14 12:00 PM) Lymphocytes # 1.7 K/CMM [1.0-5.5 K/CMM] (11/21/14 12:00 PM) Monocytes # [0.0-0.8 0.4 K/CMM K/CMM] (11/21/14 12:00 PM) Eosinophils # 0.1 K/CMM [0.0-0.5 K/CMM] (11/21/14 12:00 PM) Basophils # [0.0-0.2 0.1 K/CMM K/CMM] (11/21/14 12:00 PM) Immunizations No data available for this [...]
--- OUTSIDE RECORDS SUMMARY | 2018-11-10 00:11 | XMS REPORT | Summary of Care ---
Author Organization Unknown Address Unknown Phone Unavailable Encounter BELIA Johnson(YANY) [id number] Date(s): 12/02/13 - 12/03/13 [facility] [address] Discharge Disposition: Home Physician Attending: Noel Mackenzie MD Physician Admitting: Noel Mackenzie MD Reason for Visit SYNCOPE Vital Signs Most recent to 1 2 3 4 oldest [Reference Range]: Height 162.56 cm 162.56 cm (12/02/13 3:36 PM) (12/02/13 8:01 AM) Temperature Oral 98.1 DegF 98.2 DegF 98.2 DegF [96.4-99.1 DegF] (12/03/13 8:00 AM) (12/03/13 12:00 AM) (12/03/13 12:00 AM) Systolic Blood 113 mmHg 130 mmHg 130 mmHg Pressure [90-140 (12/03/13 8:00 AM) (12/03/13 12:00 AM) (12/03/13 12:00 AM) mmHg] Diastolic Blood 71 mmHg 74 mmHg 74 mmHg Pressure [60-90 (12/03/13 8:00 AM) (12/03/13 12:00 AM) (12/03/13 12:00 AM) mmHg] Respiratory Rate 16 BRMIN 18 BRMIN 18 BRMIN 18 BRMIN [14-20 BRMIN] (12/03/13 8:20 AM) (12/03/13 8:00 AM) (12/03/13 12:00 AM) (12/03/13 12:00 AM) Peripheral Pulse 67 bpm 85 bpm 85 bpm Rate [60-100 bpm] (12/03/13 8:00 AM) (12/03/13 12:00 AM) (12/03/13 12:00 AM) Weight 81.818 kg 81.818 kg (12/02/13 3:36 PM) (12/02/13 8:01 AM) Body Mass Index 30.96 m2 30.96 m2 (12/02/13 3:36 PM) (12/02/13 8:01 AM) Problem List Condition Effective Dates Status Health Status Informant Kidney Active stone(Confirmed) Vaginal bleeding Active problem(Confirmed) Vaginal Active delivery(Confirmed) Allergies, Adverse Reactions, Alerts Substance Reaction Severity Status NKDA NKDA - No known drug allergies Active Medications atropine 0.5 mg, 5 mL, Route: IVP, Drug form: INJ, PRN, PRN Bradycardia, Start date: 09/12 15:24:00, Duration: 30 day, Stop date: 01/01/14 15:23:00 Start Date: 12/02/13 Stop Date: 12/03/13 Status: Discontinued doxycycline 100 mg, 1 tab, Route: PO, Drug form: TAB, [id number], Dosing Weight 81.818, kg, Sta rt date: 12/02/13 16:00:00, Duration: 30 day, Stop date: 01/01/14 4:00:00 Notes: NO MILK/ANTACIDS/IRON Take 1 hour before or 2 hours after dairy products Start Date: 12/02/13 Stop Date: 12/03/13 Status: Discontinued doxycycline hyclate 100 mg oral tablet 100 mg=1 tab, PO, [id number], # 20 tab, 0 Refill(s) Start Date: 12/03/13 Stop Date: 12/13/13 Status: Ordered ibuprofen 800 mg, 1 tab, Route: PO, Drug form: TAB, TID, Dosing Weight 81.818, kg, Start d ate: 12/03/13 0:00:00, Duration: 30 day, Stop date: 01/01/14 16:00:00 Notes: (Same as: Motrin)"Do Not Crush" Take with food. Start Date: 12/03/13 Stop Date: 12/03/13 Status: Discontinued ibuprofen 800 mg oral tablet 800 mg=1 tab, PO, Q8H, Take with food, # 30 tab, 0 Refill(s) Special Instructions: Take with food Start Date: 12/03/13 Status: Ordered metroNIDAZOLE 500 mg, 100 mL, Route: IVPB, Drug form: INJ, [id number], Dosing Weight 81.818, kg, Start date: 12/02/13 19:00:00, Duration: 7 day, Stop date: 12/09/13 7:00:00 Notes: (Same as: Flagyl) Avoid alcohol. Start Date: 12/02/13 Stop Date: 12/03/13 Status: Discontinued metroNIDAZOLE 500 mg oral tablet 500 mg=1 tab, PO, Q12H, # 20 tab, 0 Refill(s) Start Date: 12/03/13 Stop Date: 12/13/13 Status: Ordered morphine Sulfate 4 mg, Route: IVP, ONCE, Dosing Weight 81.818, kg, Priority: STAT, Start date: 9:43:00, Stop date: 12/02/13 9:43:00 Start Date: 12/02/13 Stop Date: 12/02/13 Status: Completed morphine Sulfate 2 mg, 1 mL, Route: IV, Drug form: INJ, Q3H, Dosing Weight 81.818, kg, PRN as nee ded for pain, Start date: 12/02/13 17:23:00, Duration: 30 day, Stop date: 17:22:00 Notes: (Same as:MORPhine Sulfate) Start Date: 12/02/13 Stop Date: 12/03/13 Status: Discontinued nitroglycerin 0.4 mg sublingual tablet 0.4 mg, 1 tab, Route: SL, Drug form: TAB, Q5Min, PRN Chest Pain, Start date: 09/12 15:24:00, Duration: 30 day, Stop date: 01/01/14 15:23:00 Notes: (Same as:Nitroquick, Nitrostat)"Do Not Crush" Sublingual tablet Start Date: 12/02/13 Stop Date: 12/03/13 Status: Discontinued [place] 10/325 oral tablet 1 tab, Route: PO, Dosing Weight 81.818, kg, ONCE, Start date: 12/02/13 13:58:00, Stop date: 12/02/13 13:58:00 Start Date: 12/02/13 Stop Date: 12/02/13 Status: Completed [place] 7.5/325 oral tablet 1 tab, Route: PO, Drug Form: TAB, Dosing Weight 81.818, kg, Q6H, PRN as needed f or pain, Start date: 12/02/13 17:20:00, Duration: 30 day, Stop date: 01/01/14 17 :19:00 Notes: Same as [place] 325-7.5mg Do not exceed 4gm/day of acetaminophen. Start Date: 12/02/13 Stop Date: 12/03/13 Status: Discontinued normal saline 0.9% IV 1,000 mL 1,000 mL, Rate: 125 ml/hr, Infuse over: 8 hr, Route: IV, Dosing Weight 81.818 kg , Total Volume: 1,000, Start date: 12/02/13 17:22:00, Duration: 30 day, Stop av e: 01/01/14 17:21:00 Start Date: 12/02/13 Stop Date: 12/03/13 Status: Discontinued Protonix 40 mg, Route: IVP, Drug form: INJ, Before Dinner, Dosing Weight 81.818, kg, Star t date: 12/03/13 16:30:00, Duration: 30 day, Stop date: 01/01/14 16:30:00 Notes: For IV push reconstitute with 10 ml 0.9% sodium chloride and push over 2 minutes. (Same as: Protonix) Start Date: 12/03/13 Stop Date: 12/03/13 Status: Canceled Protonix 40 mg oral enteric coated tablet 40 mg=1 tab, PO, Daily, # 30 tab, 0 Refill(s) Start Date: 12/03/13 Status: Ordered Rocephin 250 mg, Route: IM, ONCE, Dosing Weight 81.818, kg, Start date: 12/02/13 13:49:00 , Stop date: 12/02/13 13:49:00 Start Date: 12/02/13 Stop Date: 12/02/13 Status: Completed Saline Flush 0.9% 5 ml, Route: IVP, Drug Form: INJ, Dosing Weight 81.818, kg, Q12H, Start date: 21:00:00, Duration: 30 day, Stop date: 01/01/14 9:00:00 Notes: (Same as: BD Posiflush) Start Date: 12/02/13 Stop Date: 12/03/13 Status: Discontinued Saline Flush 0.9% 5 ml, Route: IVP, Drug Form: INJ, Dosing Weight 81.818, kg, PRN, PRN Line Flush, Start date: 12/02/13 15:24:00, Duration: 30 day, Stop date: 01/01/14 15:23:00 Notes: (Same as: BD Posiflush) Start Date: 12/02/13 Stop Date: 12/03/13 Status: Discontinued Sodium Chloride 0.9% IV 1,000 mL 1,000 mL, Rate: 50 ml/hr, Infuse over: 20 hr, Route: IV, Dosing Weight 81.818 kg , Total Volume: 1,000, Start date: 12/02/13 15:24:00, Duration: 30 day, Stop av e: 01/01/14 15:23:00 Start Date: 12/02/13 Stop Date: 12/02/13 Status: Discontinued tramadol 50 mg oral tablet 50 mg=1 tab, PO, Q8H, Pain, # 30 tab, 0 Refill(s) Start Date: 12/03/13 Stop Date: 12/13/13 Status: Ordered Zithromax 500 mg oral tablet 1,000 mg, Route: PO, ONCE, Dosing Weight 81.818, kg, Start date: 12/02/13 13:48: 00, Stop date: 12/02/13 13:48:00 Start Date: 12/02/13 Stop Date: 12/02/13 Status: Completed Zofran 4 mg, Route: IVP, ONCE, Dosing Weight 81.818, kg, Priority: STAT, Start date: 9:43:00, Stop date: 12/02/13 9:43:00 Start Date: 12/02/13 Stop Date: 12/02/13 Status: Completed Zofran 4 mg, 2 mL, Route: IV, Drug form: INJ, Q4H, Dosing Weight 81.818, kg, PRN Nausea , Start date: 12/02/13 23:05:00, Duration: 30 day, Stop date: 01/01/14 23:04:00 Notes: (Same as: Zofran) Start Date: 12/02/13 Stop Date: 12/03/13 Status: Discontinued Results ELECTROLYTES Most recent to 1 2 oldest [Reference Range]: Sodium Lvl [135-145 139 mEq/L 137 mEq/L mEq/L] (12/03/13 3:40 AM) (12/02/13 8:14 AM) Potassium Lvl 4.1 mEq/L 3.8 mEq/L [3.5-5.1 mEq/L] (12/03/13 3:40 AM) (12/02/13 8:14 AM) Chloride Lvl [95-109 105 mEq/L 105 mEq/L mEq/L] (12/03/13 3:40 AM) (12/02/13 8:14 AM) CO2 [24-32 mEq/L] 26 mEq/L 24 mEq/L (12/03/13 3:40 AM) (12/02/13 8:14 AM) AGAP [10.0-20.0 12.1 mEq/L 11.8 mEq/L mEq/L] (12/03/13 3:40 AM) (12/02/13 8:14 AM) CHEM PANEL Most recent to 1 2 oldest [Reference Range]: Creatinine Lvl 1.0 mg/dL 0.8 mg/dL [0.5-1.4 mg/dL] (12/03/13 3:40 AM) (12/02/13 8:14 AM) eGFR 73 mL/min/1.73m2 1 95 mL/min/1.73m2 2 *NA* *NA* (12/03/13 3:40 AM) (12/02/13 8:14 AM) BUN [7-22 mg/dL] 13 mg/dL 10 mg/dL (12/03/13 3:40 AM) (12/02/13 8:14 AM) B/C Ratio [6-25] 12 (12/02/13 8:14 AM) Glucose Lvl [70-99 88 mg/dL 3 98 mg/dL 4 mg/dL] (12/03/13 3:40 AM) (12/02/13 8:14 AM) Total Protein 6.8 g/dL [6.4-8.4 g/dL] (12/02/13 8:14 AM) Albumin Lvl [3.5-5.0 3.7 g/dL g/dL] (12/02/13 8:14 AM) Globulin [2.0-4.0 3.1 g/dL g/dL] (12/02/13 8:14 AM) A/G Ratio [0.7-1.6] 1.2 (12/02/13 8:14 AM) Calcium Lvl 8.3 mg/dL 8.5 mg/dL [8.5-10.5 mg/dL] *LOW* (12/02/13 8:14 AM) (12/03/13 3:40 AM) ALT [0-65 unit/L] 26 unit/L (12/02/13 8:14 AM) AST [0-37 unit/L] 13 unit/L (12/02/13 8:14 AM) Alk Phos [39-136 69 unit/L unit/L] (12/02/13 8:14 AM) Bili Total [0.2-1.3 0.4 mg/dL mg/dL] (12/02/13 8:14 AM) 1Result Comment: The eGFR is calculated [...] be mul tiplied by the estimated BMI. 2Result Comment: The eGFR is calculated using [...] be mul tiplied by the estimated BMI. 3Interpretive Data: Adult reference range values reflect the clinical guidelines of the [place] [employer]. 4Interpretive Data: Adult reference range values reflect the clinical guidelines of the [place] [employer]. CARDIAC ENZYMES Most recent to 1 2 oldest [Reference Range]: Total CK [12-191 55 unit/L 58 unit/L unit/L] (12/02/13 4:37 PM) (12/02/13 8:14 AM) CK MB [0.5-3.6 0.6 ng/mL ng/mL] (12/02/13 8:14 AM) CK MB Index 1.0 [0.0-2.5] (12/02/13 8:14 AM) Troponin-I <0.02 ng/mL <0.02 ng/mL [0.00-0.40 ng/mL] (12/02/13 4:37 PM) (12/02/13 8:14 AM) URINE CHEM Most recent to 1 2 oldest [Reference Range]: U Preg [Negative] Negative (12/02/13 8:23 AM) URINE AND STOOL Most recent to 1 2 oldest [Reference Range]: UA Turbidity [Clear] Slight *ABN* (12/02/13 8:23 AM) UA Color Ltyellow *NA* (12/02/13 8:23 AM) UA pH [5.0-8.0] 6.0 (12/02/13 8:23 AM) UA Spec Grav 1.011 [<=1.030] (12/02/13 8:23 AM) UA Glucose [Negative Negative mg/dL mg/dL] *NA* (12/02/13 8:23 AM) UA Blood [Negative] Large *ABN* (12/02/13 8:23 AM) UA Ketones [Negative Negative mg/dL mg/dL] *NA* (12/02/13 8:23 AM) UA Protein [Negative Negative mg/dL mg/dL] (12/02/13 8:23 AM) UA Urobilinogen <=1.0 mg/dL [0.1-1.0 mg/dL] *NA* (12/02/13 8:23 AM) UA Bili [Negative] Negative *NA* (12/02/13 8:23 AM) UA Leuk Est Trace [Negative] *ABN* (12/02/13 8:23 AM) UA Nitrite Negative [Negative] (12/02/13 8:23 AM) UA WBC [0-5 /HPF] 8 /HPF *HI* (12/02/13 8:23 AM) UA RBC [0-2 /HPF] 7 /HPF *HI* (12/02/13 8:23 AM) UA Bacteria [None Occasional /HPF Seen /HPF] *NA* (12/02/13 8:23 AM) UA Sq Epi [Few /LPF] Few /LPF *NA* (12/02/13 8:23 AM) UA Mucus [None Seen Few /LPF /LPF] *NA* (12/02/13 8:23 AM) IMMUNOLOGY Most recent to 1 2 oldest [Reference Range]: CDC HIV 4th GEN Negative [Negative] (12/02/13 8:14 AM) HEMATOLOGY Most recent to 1 2 oldest [Reference Range]: WBC [3.7-10.4 K/CMM] 5.7 K/CMM 5.2 K/CMM (12/03/13 3:40 AM) (12/02/13 8:14 AM) RBC [4.20-5.40 4.01 M/CMM 4.34 M/CMM M/CMM] *LOW* (12/02/13 8:14 AM) (12/03/13 3:40 AM) Hgb [12.0-16.0 g/dL] 11.8 g/dL 12.7 g/dL *LOW* (12/02/13 8:14 AM) (12/03/13 3:40 AM) Hct [36.0-48.0 %] 34.6 % 37.2 % *LOW* (12/02/13 8:14 AM) (12/03/13 3:40 AM) MCV [81.0-99.0 fL] 86.3 fL 85.8 fL (12/03/13 3:40 AM) (12/02/13 8:14 AM) MCH [27.0-31.0 pg] 29.4 pg 29.3 pg (12/03/13 3:40 AM) (12/02/13 8:14 AM) MCHC [32.0-36.0 34.1 g/dL 34.1 g/dL g/dL] (12/03/13 3:40 AM) (12/02/13 8:14 AM) RDW [11.5-14.5 %] 13.8 % 13.8 % (12/03/13 3:40 AM) (12/02/13 8:14 AM) Platelet [133-450 198 K/CMM 222 K/CMM K/CMM] (12/03/13 3:40 AM) (12/02/13 8:14 AM) MPV [7.4-10.4 fL] 8.2 fL 8.5 fL (12/03/13 3:40 AM) (12/02/13 8:14 AM) Segs [45.0-75.0 %] 50.2 % 60.0 % (12/03/13 3:40 AM) (12/02/13 8:14 AM) Lymphocytes 38.0 % 30.0 % [20.0-40.0 %] (12/03/13 3:40 AM) (12/02/13 8:14 AM) Monocytes [2.0-12.0 7.9 % 6.3 % %] (12/03/13 3:40 AM) (12/02/13 8:14 AM) Eosinophils [0.0-4.0 3.0 % 2.7 % %] (12/03/13 3:40 AM) (12/02/13 8:14 AM) Basophils [0.0-1.0 0.9 % 1.0 % %] (12/03/13 3:40 AM) (12/02/13 8:14 AM) Segs-Bands # 2.9 K/CMM 3.1 K/CMM [1.5-8.1 K/CMM] (12/03/13 3:40 AM) (12/02/13 8:14 AM) Lymphocytes # 2.2 K/CMM 1.6 K/CMM [1.0-5.5 K/CMM] (12/03/13 3:40 AM) (12/02/13 8:14 AM) Monocytes # [0.0-0.8 0.4 K/CMM 0.3 K/CMM K/CMM] (12/03/13 3:40 AM) (12/02/13 8:14 AM) Eosinophils # 0.2 K/CMM 0.1 K/CMM [0.0-0.5 K/CMM] (12/03/13 3:40 AM) (12/02/13 8:14 AM) Basophils # [0.0-0.2 0.1 K/CMM 0.1 K/CMM K/CMM] (12/03/13 3:40 AM) (12/02/13 8:14 AM) Medications Administered During Your Visit No data available for this section Immunizations No data available for this section Social History Social History Type Response Substance Abuse Use: None Alcohol Use: Current, Frequency: 1-2 times per month Smoking Status Former smoker, Exposure to Tobacco Smoke None, Cigarette Smoking Last 365 Days No, Reg Smoking Cessation Counseling No
--- OUTSIDE RECORDS SUMMARY | 2018-11-10 00:11 | XMS REPORT | Summary of Care ---
Author Author [facility] Organization [facility] Address Unknown Phone Unavailable Encounter BELIA Johnson(YANY) [id number] Date(s): 03/29/15 - 03/29/15 [facility] [address] [place] [address]- [phone] Discharge Diagnosis: Unspecified abdominal pain Discharge Diagnosis: Hematuria, unspecified Discharge Disposition: Home Attending Physician: Tracy Mora MD Vital Signs Most recent to 1 2 oldest [Reference Range]: Height 162.56 cm (03/29/15 7:48 AM) Temperature Oral 97.8 DegF 98.2 DegF [96.4-99.1 DegF] (03/29/15 11:07 AM) (03/29/15 7:48 AM) Blood Pressure 119/67 mmHg 115/73 mmHg [90-140/60-90 mmHg] (03/29/15 11:07 AM) (03/29/15 7:48 AM) Respiratory Rate 18 BRMIN 18 BRMIN [14-20 BRMIN] (03/29/15 11:07 AM) (03/29/15 7:48 AM) Peripheral Pulse 98 bpm 63 bpm Rate [60-100 bpm] (03/29/15 11:07 AM) (03/29/15 7:48 AM) Weight 81.818 kg (03/29/15 7:48 AM) Body Mass Index 30.96 m2 (03/29/15 7:48 AM) Problem List Condition Effective Dates Status Health Status Informant Kidney Active stone(Confirmed) Vaginal bleeding Active problem(Confirmed) Vaginal Active delivery(Confirmed) Allergies, Adverse Reactions, Alerts Substance Reaction Severity Status NKDA NKDA - No known drug allergies Active Medications Ativan 0.5 mg, 0.25 mL, Route: IVP, Drug form: INJ, ONCE, Dosing Weight 81.818, kg, Marissa ority: STAT, Start date: 03/29/15 7:59:00, Stop date: 03/29/15 7:59:00 Notes: (Same as: Ativan) Start Date: 03/29/15 Stop Date: 03/29/15 Status: Completed Dilaudid 0.5 mg, Route: IVP, ONCE, Dosing Weight 81.818, kg, Priority: STAT, Start date: 03/29/15 9:20:00, Stop date: 03/29/15 9:20:00 Start Date: 03/29/15 Stop Date: 03/29/15 Status: Completed Dilaudid 0.5 mg, 0.5 mL, Route: IVP, Drug form: INJ, ONCE, Dosing Weight 81.818, kg, Prio rity: STAT, Start date: 03/29/15 8:00:00, Stop date: 03/29/15 8:00:00 Start Date: 03/29/15 Stop Date: 03/29/15 Status: Completed ketOROLAC 30 mg, Route: IV, Drug form: INJ, ONCE, Dosing Weight 81.818, kg, Priority: STAT , Start date: 03/29/15 11:11:00, Stop date: 03/29/15 11:11:00 Start Date: 03/29/15 Stop Date: 03/29/15 Status: Completed ketOROLAC 10 mg oral tablet 10 mg=1 tab, PO, TID, PRN Pain, X 5 day, # 15 tab, 0 Refill(s) Start Date: 03/29/15 Stop Date: 04/03/15 Status: Ordered Sodium Chloride 0.9% (Bolus) IV 1,000 mL, 1,000 ml/hr, Infuse Over: 1 hr, Route: IV, 1,000, Drug form: INJ, ONCE , Priority: STAT, Dosing Weight 81.818 kg, Start date: 03/29/15 8:00:00, Duratio n: 1 doses or times, Stop date: 03/29/15 8:00:00 Start Date: 03/29/15 Stop Date: 03/29/15 Status: Completed Zofran ODT 4 mg oral tablet, disintegrating 4 mg=1 tab, PO, TID, PRN as needed for nausea/vomiting, (allow tablet to dissolv e on tongue), # 10 tab, 0 Refill(s) Start Date: 03/29/15 Stop Date: 04/02/15 Status: Ordered Results ELECTROLYTES Most recent to 1 oldest [Reference Range]: Sodium Lvl [135-145 140 mEq/L mEq/L] (03/29/15 8:02 AM) Potassium Lvl 4.2 mEq/L [3.5-5.1 mEq/L] (03/29/15 8:02 AM) Chloride Lvl [95-109 106 mEq/L mEq/L] (03/29/15 8:02 AM) CO2 [24-32 mEq/L] 30 mEq/L (03/29/15 8:02 AM) AGAP [10.0-20.0 8.2 mEq/L mEq/L] *LOW* (03/29/15 8:02 AM) CHEM PANEL Most recent to 1 oldest [Reference Range]: Creatinine Lvl 0.9 mg/dL [0.5-1.4 mg/dL] (03/29/15 8:02 AM) eGFR 82 mL/min/1.73m2 1 *NA* (03/29/15 8:02 AM) BUN [7-22 mg/dL] 8 mg/dL (03/29/15 8:02 AM) Glucose Lvl [70-99 94 mg/dL mg/dL] (03/29/15 8:02 AM) Calcium Lvl 8.4 mg/dL [8.5-10.5 mg/dL] *LOW* (03/29/15 8:02 AM) 1Result Comment: The eGFR is calculated [...] oldest [Reference Range]: U Preg [Negative] Negative (03/29/15 8:02 AM) URINE AND STOOL Most recent to 1 oldest [Reference Range]: UA Turbidity [Clear] Clear (03/29/15 8:02 AM) UA Color [Yellow] Yellow *NA* (03/29/15 8:02 AM) UA pH [5.0-8.0] 6.0 (03/29/15 8:02 AM) UA Spec Grav <=1.005 [<=1.030] *NA* (03/29/15 8:02 AM) UA Glucose Negative [Negative] (03/29/15 8:02 AM) UA Blood [Negative] Small *ABN* (03/29/15 8:02 AM) UA Ketones Negative [Negative] *NA* (03/29/15 8:02 AM) UA Protein Negative [Negative] (03/29/15 8:02 AM) UA Urobilinogen 0.2 EU/dL [0.1-1.0 EU/dL] (03/29/15 8:02 AM) UA Bili [Negative] Negative *NA* (03/29/15 8:02 AM) UA Leuk Est Trace [Negative] *ABN* (03/29/15 8:02 AM) UA Nitrite Negative [Negative] (03/29/15 8:02 AM) UA WBC [0-5 /HPF] 2 /HPF (03/29/15 8:02 AM) UA RBC [0-2 /HPF] 5 /HPF *HI* (03/29/15 8:02 AM) UA Bacteria [None Few /HPF Seen /HPF] *NA* (03/29/15 8:02 AM) UA Sq Epi [Few /LPF] Many /LPF *ABN* (03/29/15 8:02 AM) HEMATOLOGY Most recent to 1 oldest [Reference Range]: WBC [3.7-10.4 K/CMM] 6.1 K/CMM (03/29/15 8:02 AM) RBC [4.20-5.40 4.47 M/CMM M/CMM] (03/29/15 8:02 AM) Hgb [12.0-16.0 g/dL] 12.9 g/dL (03/29/15 8:02 AM) Hct [36.0-48.0 %] 39.2 % (03/29/15:02 AM) MCV [80.0-98.0 fL] 87.8 fL (03/29/15 802 AM) MCH [27.0-31.0 pg] 28.8 pg (03/29/15: AM) MCHC [32.0-36.0 32.8 g/dL g/dL] (03/29/15 8:02 AM) RDW [11.5-14.5 %] 13.9 % (03/29/15 8:02 AM) Platelet [133-450 185 K/CMM K/CMM] (03/29/15 8:02 AM) MPV [7.4-10.4 fL] 8.5 fL (03/29/15 8:02 AM) Segs [45.0-75.0 %] 65.3 % (03/29/15 8:02 AM) Lymphocytes 25.2 % [20.0-40.0 %] (03/29/15 8:02 AM) Monocytes [2.0-12.0 6.5 % %] (03/29/15 8:02 AM) Eosinophils [0.0-4.0 1.7 % %] (03/29/15 8:02 AM) Basophils [0.0-1.0 1.3 % %] *HI* (03/29/15 8:02 AM) Segs-Bands # 4.0 K/CMM [1.5-8.1 K/CMM] (03/29/15 8:02 AM) Lymphocytes # 1.5 K/CMM [1.0-5.5 K/CMM] (03/29/15 8:02 AM) Monocytes # [0.0-0.8 0.4 K/CMM K/CMM] (03/29/15 8:02 AM) Eosinophils # 0.1 K/CMM [0.0-0.5 K/CMM] (03/29/15 8:02 AM) Basophils # [0.0-0.2 0.1 K/CMM K/CMM] (03/29/15 8:02 AM) Immunizations No data available for this section Procedures Procedure Date Related Diagnosis Body Site Cholecystectomy Cholecystectomy Hysterectomy Lithotripsy of kidney Tubal ligation Social History Social History Type Response Substance Abuse Use: None. Alcohol Current, Frequency: 1-2 times per month. Smoking Status Former smoker; Type: Cigarettes; Lives with someone who smokes; Cigarette Smoking Last 365 Days No; Reg Smoking Cessation Counseling No Assessment and Plan No data available for this section
--- OUTSIDE RECORDS SUMMARY | 2018-11-10 00:11 | XMS REPORT | Summary of Care ---
Author Author [facility] Organization [facility] Address Unknown Phone Unavailable Encounter BELIA Johnson(YANY) [id number] Date(s): 05/02/15 - 05/02/15 [facility] [address] [place] [address]- Discharge Diagnosis: Urinary tract infection, site not specified Discharge Disposition: Home Attending Physician: Jose Junior MD Vital Signs Most recent to 1 2 oldest [Reference Range]: Height 162.56 cm (05/02/15 7:22 AM) Temperature Oral 98.0 DegF 98.2 DegF [96.4-99.1 DegF] (05/02/15 10:28 AM) (05/02/15 7:22 AM) Blood Pressure 107/63 mmHg 125/80 mmHg [90-140/60-90 mmHg] (05/02/15 10:28 AM) (05/02/15 7:22 AM) Respiratory Rate 18 BRMIN 18 BRMIN [14-20 BRMIN] (05/02/15 10:28 AM) (05/02/15 7:22 AM) Peripheral Pulse 73 bpm 75 bpm Rate [60-100 bpm] (05/02/15 10:28 AM) (05/02/15 7:22 AM) Weight 81.818 kg (05/02/15 7:22 AM) Body Mass Index 30.96 m2 (05/02/15 7:22 AM) Problem List Condition Effective Dates Status Health Status Informant Kidney Active stone(Confirmed) Vaginal bleeding Active problem(Confirmed) Vaginal Active delivery(Confirmed) Allergies, Adverse Reactions, Alerts Substance Reaction Severity Status NKDA NKDA - No known drug allergies Active Medications Cipro 500 mg oral tablet 500 mg=1 tab, PO, Q12H, X 7 day, # 14 tab, 0 Refill(s), Pharmacy: [facility] [id number] Start Date: 05/02/15 Stop Date: 05/09/15 Status: Ordered Dilaudid 0.5 mg, Route: IV, ONCE, Dosing Weight 81.818, kg, Start date: 05/02/15 8:42:00, Stop date: 05/02/15 8:42:00 Start Date: 05/02/15 Stop Date: 05/02/15 Status: Completed ketOROLAC 10 mg oral tablet 10 mg=1 tab, PO, Q6H, X 5 day, # 20 tab, 0 Refill(s), Pharmacy: [place] [id number] Start Date: 05/02/15 Stop Date: 05/07/15 Status: Ordered morphine Sulfate 4 mg, Route: IVP, Drug form: INJ, ONCE, Dosing Weight 81.818, kg, Priority: STAT , Start date: 05/02/15 7:33:00, Stop date: 05/02/15 7:33:00 Start Date: 05/02/15 Stop Date: 05/02/15 Status: Completed NS (Bolus) IV 1,000 mL, 1,000 ml/hr, Infuse Over: 1 hr, Route: IV, ONCE, Priority: STAT, Dosin g Weight 81.818 kg, Start date: 05/02/15 7:33:00, Duration: 1 doses or times, St op date: 05/02/15 7:33:00 Start Date: 05/02/15 Stop Date: 05/02/15 Status: Completed Ultram 50 mg oral tablet 50 mg=1 tab, PO, Q4H, PRN pain, X 5 day, # 30 tab, 0 Refill(s) Start Date: 05/02/15 Stop Date: 05/07/15 Status: Ordered Zofran 4 mg, Route: IVP, Drug form: INJ, ONCE, Dosing Weight 81.818, kg, Priority: STAT , Start date: 05/02/15 7:33:00, Stop date: 05/02/15 7:33:00 Start Date: 05/02/15 Stop Date: 05/02/15 Status: Completed Results ELECTROLYTES Most recent to 1 oldest [Reference Range]: Sodium Lvl [135-145 141 mEq/L mEq/L] (05/02/15 7:45 AM) Potassium Lvl 3.6 mEq/L [3.5-5.1 mEq/L] (05/02/15 7:45 AM) Chloride Lvl [95-109 108 mEq/L mEq/L] (05/02/15 7:45 AM) CO2 [24-32 mEq/L] 27 mEq/L (05/02/15 7:45 AM) AGAP [10.0-20.0 9.6 mEq/L mEq/L] *LOW* (05/02/15 7:45 AM) CHEM PANEL Most recent to 1 oldest [Reference Range]: Creatinine Lvl 0.83 mg/dL [0.50-1.40 mg/dL] (05/02/15 7:45 AM) eGFR 91 mL/min/1.73m2 1 *NA* (05/02/15 7:45 AM) BUN [7-22 mg/dL] 10 mg/dL (05/02/15 7:45 AM) B/C Ratio [6-25] 12 (05/02/15 7:45 AM) Glucose Lvl [70-99 93 mg/dL mg/dL] (05/02/15 7:45 AM) Total Protein 6.7 g/dL [6.4-8.4 g/dL] (05/02/15 7:45 AM) Albumin Lvl [3.5-5.0 3.7 g/dL g/dL] (05/02/15 7:45 AM) Globulin [2.0-4.0 3.0 g/dL g/dL] (05/02/15 7:45 AM) A/G Ratio [0.7-1.6] 1.2 (05/02/15 7:45 AM) Calcium Lvl 8.5 mg/dL [8.5-10.5 mg/dL] (05/02/15 7:45 AM) ALT [0-65 unit/L] 23 unit/L (05/02/15 7:45 AM) AST [0-37 unit/L] 9 unit/L (05/02/15 7:45 AM) Alk Phos [39-136 64 unit/L unit/L] (05/02/15 7:45 AM) Bili Total [0.2-1.3 0.3 mg/dL mg/dL] (05/02/15 7:45 AM) Lipase Lvl [73-393 215 unit/L unit/L] (05/02/15 7:45 AM) 1Result Comment: The eGFR is calculated [...] oldest [Reference Range]: UA Turbidity [Clear] Clear (05/02/15 7:45 AM) UA Color Ltyellow *NA* (05/02/15 7:45 AM) UA pH [5.0-8.0] 6.0 (05/02/15 7:45 AM) UA Spec Grav 1.012 [<=1.030] (05/02/15 7:45 AM) UA Glucose [Negative Negative mg/dL mg/dL] *NA* (05/02/15 7:45 AM) UA Blood [Negative] Negative (05/02/15 7:45 AM) UA Ketones [Negative Negative mg/dL mg/dL] *NA* (05/02/15 7:45 AM) UA Protein [Negative Negative mg/dL mg/dL] (05/02/15 7:45 AM) UA Urobilinogen <=1.0 mg/dL [0.1-1.0 mg/dL] *NA* (05/02/15 7:45 AM) UA Bili [Negative] Negative *NA* (05/02/15 7:45 AM) UA Leuk Est Small [Negative] *ABN* (05/02/15 7:45 AM) UA Nitrite Negative [Negative] (05/02/15 7:45 AM) UA WBC [0-5 /HPF] 5 /HPF (05/02/15 7:45 AM) UA RBC [0-2 /HPF] 1 /HPF (05/02/15 7:45 AM) UA Sq Epi [Few /LPF] Occasional /LPF *NA* (05/02/15 7:45 AM) HEMATOLOGY Most recent to 1 oldest [Reference Range]: WBC [3.7-10.4 K/CMM] 4.9 K/CMM (05/02/15 7:45 AM) RBC [4.20-5.40 4.66 M/CMM M/CMM] (05/02/15 7:45 AM) Hgb [12.0-16.0 g/dL] 13.4 g/dL (05/02/15 7:45 AM) Hct [36.0-48.0 %] 41.0 % (05/02/15 7:45 AM) MCV [80.0-98.0 fL] 88.0 fL (05/02/15 7:45 AM) MCH [27.0-31.0 pg] 28.8 pg (05/02/15 7:45 AM) MCHC [32.0-36.0 32.7 g/dL g/dL] (05/02/15 7:45 AM) RDW [11.5-14.5 %] 14.1 % (05/02/15 7:45 AM) Platelet [133-450 197 K/CMM K/CMM] (05/02/15 7:45 AM) MPV [7.4-10.4 fL] 8.4 fL (05/02/15 7:45 AM) Segs [45.0-75.0 %] 64.3 % (05/02/15 7:45 AM) Lymphocytes 25.8 % [20.0-40.0 %] (05/02/15 7:45 AM) Monocytes [2.0-12.0 6.6 % %] (05/02/15 7:45 AM) Eosinophils [0.0-4.0 2.2 % %] (05/02/15 7:45 AM) Basophils [0.0-1.0 1.1 % %] *HI* (05/02/15 7:45 AM) Segs-Bands # 3.2 K/CMM [1.5-8.1 K/CMM] (05/02/15 7:45 AM) Lymphocytes # 1.3 K/CMM [1.0-5.5 K/CMM] (05/02/15 7:45 AM) Monocytes # [0.0-0.8 0.3 K/CMM K/CMM] (05/02/15 7:45 AM) Eosinophils # 0.1 K/CMM [0.0-0.5 K/CMM] (05/02/15 7:45 AM) Basophils # [0.0-0.2 0.1 K/CMM K/CMM] (05/02/15 7:45 AM) Immunizations No data available for this [...]
--- OUTSIDE RECORDS SUMMARY | 2018-11-10 00:11 | XMS REPORT | Summary of Care ---
Author Author [facility] Organization [facility] Address Unknown Phone Unavailable Encounter BELIA Johnson(YANY) [id number] Date(s): 05/09/15 - 05/09/15 [facility] [address] [place] [address]- Discharge Diagnosis: Unspecified ovarian cysts Discharge Disposition: Home Attending Physician: Tracy Mora MD Vital Signs Most recent to 1 2 oldest [Reference Range]: Height 162.56 cm (05/09/15 7:33 AM) Temperature Oral 98.0 DegF 97.9 DegF [96.4-99.1 DegF] (05/09/15 11:37 AM) (05/09/15 7:33 AM) Blood Pressure 98/58 mmHg 107/72 mmHg [90-140/60-90 mmHg] (05/09/15 11:37 AM) (05/09/15 7:33 AM) Respiratory Rate 18 BRMIN 18 BRMIN [14-20 BRMIN] (05/09/15 11:37 AM) (05/09/15 7:33 AM) Peripheral Pulse 60 bpm 68 bpm Rate [60-100 bpm] (05/09/15 11:37 AM) (05/09/15 7:33 AM) Weight 81.818 kg (05/09/15 7:33 AM) Body Mass Index 30.96 m2 (05/09/15 7:33 AM) Problem List Condition Effective Dates Status Health Status Informant Kidney Active stone(Confirmed) Ovarian Resolved cyst(Confirmed) Vaginal bleeding Active problem(Confirmed) Vaginal Active delivery(Confirmed) Allergies, Adverse Reactions, Alerts Substance Reaction Severity Status NKDA NKDA - No known drug allergies Active Medications ketOROLAC 30 mg, 1 mL, Route: IVP, Drug form: INJ, ONCE, Dosing Weight 81.818, kg, Priorit y: STAT, Start date: 05/09/15 9:44:00, Stop date: 05/09/15 9:44:00 Notes: (Same as:Toradol) IV bolus must be given >15 seconds. Give IM administration slowly and deeply into the muscle.Not for use > 4 days MEDICATION WASTE Product Size: 30 mgProduct Wasted: ___ mg Start Date: 05/09/15 Stop Date: 05/09/15 Status: Completed morphine Sulfate 4 mg, Route: IVP, Drug form: INJ, ONCE, Dosing Weight 81.818, kg, Priority: STAT , Start date: 05/09/15 8:40:00, Stop date: 05/09/15 8:40:00 Start Date: 05/09/15 Stop Date: 05/09/15 Status: Completed morphine Sulfate 4 mg, Route: IVP, ONCE, Dosing Weight 81.818, kg, Start date: 05/09/15 7:40:00, Stop date: 05/09/15 7:40:00 Start Date: 05/09/15 Stop Date: 05/09/15 Status: Completed Naprosyn 500 mg oral tablet 500 mg=1 tab, PO, BID, PRN Pain, # 28 tab, 0 Refill(s) Start Date: 05/09/15 Stop Date: 05/23/15 Status: Ordered NS (Bolus) IV 1,000 mL, 1,000 ml/hr, Infuse Over: 1 hr, Route: IV, ONCE, Priority: STAT, Dosin g Weight 81.818 kg, Start date: 05/09/15 7:40:00, Duration: 1 doses or times, St op date: 05/09/15 7:40:00 Start Date: 05/09/15 Stop Date: 05/09/15 Status: Completed Tylenol with Codeine #3 oral tablet isalm,n, PO, Q4H, PRN Pain, X 5 day, # 15 tab, 0 Refill(s) Start Date: 05/09/15 Stop Date: 05/14/15 Status: Ordered Zofran 4 mg, Route: IVP, Drug form: INJ, ONCE, Dosing Weight 81.818, kg, Priority: STAT , Start date: 05/09/15 7:40:00, Stop date: 05/09/15 7:40:00 Start Date: 05/09/15 Stop Date: 05/09/15 Status: Completed Zofran ODT 4 mg oral tablet, disintegrating 4 mg=1 tab, PO, BID, PRN Nausea and Vomiting, Dissolve tab under tongue, X 3 day , # 6 tab, 0 Refill(s) Start Date: 05/09/15 Stop Date: 05/12/15 Status: Ordered Results ELECTROLYTES Most recent to 1 oldest [Reference Range]: Sodium Lvl [135-145 140 mEq/L mEq/L] (05/09/15 7:47 AM) Potassium Lvl 4.0 mEq/L [3.5-5.1 mEq/L] (05/09/15 7:47 AM) Chloride Lvl [95-109 107 mEq/L mEq/L] (05/09/15 7:47 AM) CO2 [24-32 mEq/L] 29 mEq/L (05/09/15 7:47 AM) AGAP [10.0-20.0 8.0 mEq/L mEq/L] *LOW* (05/09/15 7:47 AM) CHEM PANEL Most recent to 1 oldest [Reference Range]: Creatinine Lvl 0.79 mg/dL [0.50-1.40 mg/dL] (05/09/15 7:47 AM) eGFR 96 mL/min/1.73m2 1 *NA* (05/09/15 7:47 AM) BUN [7-22 mg/dL] 9 mg/dL (05/09/15 7:47 AM) B/C Ratio [6-25] 11 (05/09/15 7:47 AM) Glucose Lvl [70-99 78 mg/dL mg/dL] (05/09/15 7:47 AM) Total Protein 6.6 g/dL [6.4-8.4 g/dL] (05/09/15 7:47 AM) Albumin Lvl [3.5-5.0 3.7 g/dL g/dL] (05/09/15 7:47 AM) Globulin [2.0-4.0 2.9 g/dL g/dL] (05/09/15 7:47 AM) A/G Ratio [0.7-1.6] 1.3 (05/09/15 7:47 AM) Calcium Lvl 8.3 mg/dL [8.5-10.5 mg/dL] *LOW* (05/09/15 7:47 AM) ALT [0-65 unit/L] 23 unit/L (05/09/15 7:47 AM) AST [0-37 unit/L] 10 unit/L (05/09/15 7:47 AM) Alk Phos [39-136 68 unit/L unit/L] (05/09/15 7:47 AM) Bili Total [0.2-1.3 0.5 mg/dL mg/dL] (05/09/15 7:47 AM) Amylase Lvl [25-115 97 unit/L unit/L] (05/09/15 7:47 AM) Lipase Lvl [73-393 138 unit/L unit/L] (05/09/15 7:47 AM) 1Result Comment: The eGFR is calculated [...] oldest [Reference Range]: U Preg [Negative] Negative (05/09/15 7:47 AM) URINE AND STOOL Most recent to 1 oldest [Reference Range]: UA Turbidity [Clear] Clear (05/09/15 7:47 AM) UA Color [Yellow] Yellow *NA* (05/09/15 7:47 AM) UA pH [5.0-8.0] 7.0 (05/09/15 7:47 AM) UA Spec Grav <=1.005 [<=1.030] *NA* (05/09/15 7:47 AM) UA Glucose Negative [Negative] (05/09/15 7:47 AM) UA Blood [Negative] Negative (05/09/15 7:47 AM) UA Ketones Negative [Negative] *NA* (05/09/15 7:47 AM) UA Protein Negative [Negative] (05/09/15 7:47 AM) UA Urobilinogen 0.2 EU/dL [0.1-1.0 EU/dL] (05/09/15 7:47 AM) UA Bili [Negative] Negative *NA* (05/09/15 7:47 AM) UA Leuk Est Small [Negative] *ABN* (05/09/15 7:47 AM) UA Nitrite Negative [Negative] (05/09/15 7:47 AM) UA WBC [0-5 /HPF] 2 /HPF (05/09/15 7:47 AM) UA RBC [0-2 /HPF] 2 /HPF (05/09/15 7:47 AM) UA Sq Epi [Few /LPF] Few /LPF *NA* (05/09/15 7:47 AM) HEMATOLOGY Most recent to 1 oldest [Reference Range]: WBC [3.7-10.4 K/CMM] 5.3 K/CMM (05/09/15 7:47 AM) RBC [4.20-5.40 4.68 M/CMM M/CMM] (05/09/15 7:47 AM) Hgb [12.0-16.0 g/dL] 13.5 g/dL (05/09/15 7:47 AM) Hct [36.0-48.0 %] 41.7 % (05/09/15 7:47 AM) MCV [80.0-98.0 fL] 89.1 fL (05/09/15 7:47 AM) MCH [27.0-31.0 pg] 29.0 pg (05/09/15 7:47 AM) MCHC [32.0-36.0 32.5 g/dL g/dL] (05/09/15 7:47 AM) RDW [11.5-14.5 %] 14.0 % (05/09/15 7:47 AM) Platelet [133-450 185 K/CMM K/CMM] (05/09/15 7:47 AM) MPV [7.4-10.4 fL] 8.1 fL (05/09/15 7:47 AM) Segs [45.0-75.0 %] 64.4 % (05/09/15 7:47 AM) Lymphocytes 21.9 % [20.0-40.0 %] (05/09/15 7:47 AM) Monocytes [2.0-12.0 9.6 % %] (05/09/15 7:47 AM) Eosinophils [0.0-4.0 2.8 % %] (05/09/15 7:47 AM) Basophils [0.0-1.0 1.3 % %] *HI* (05/09/15 7:47 AM) Segs-Bands # 3.4 K/CMM [1.5-8.1 K/CMM] (05/09/15 7:47 AM) Lymphocytes # 1.2 K/CMM [1.0-5.5 K/CMM] (05/09/15 7:47 AM) Monocytes # [0.0-0.8 0.5 K/CMM K/CMM] (05/09/15 7:47 AM) Eosinophils # 0.1 K/CMM [0.0-0.5 K/CMM] (05/09/15 7:47 AM) Basophils # [0.0-0.2 0.1 K/CMM K/CMM] (05/09/15 7:47 AM) Immunizations No data available for this [...]
--- OUTSIDE RECORDS SUMMARY | 2018-11-10 00:11 | XMS REPORT | Summary of Care ---
Author Organization Unknown Address Unknown Phone Unavailable Encounter BELIA Johnson(YANY) [id number] Date(s): 09/09/14 - 09/09/14 [facility] [address] [place] [address]- [phone] Discharge Diagnosis: Vomiting and diarrhea Discharge Diagnosis: UTI (lower urinary tract infection) Discharge Diagnosis: Pyelonephritis Discharge Diagnosis: Low back pain radiating to right leg Discharge Disposition: Home Physician Attending: Delta Mason DO Vital Signs Most recent to 1 2 oldest [Reference Range]: Height 162.56 cm (09/09/14 8:07 AM) Temperature Oral 98.7 DegF 98.7 DegF [96.4-99.1 DegF] (09/09/14 10:04 AM) (09/09/14 8:07 AM) Blood Pressure 111/68 mmHg 129/81 mmHg [90-140/60-90 mmHg] (09/09/14 10:04 AM) (09/09/14 8:07 AM) Respiratory Rate 18 BRMIN 16 BRMIN [14-20 BRMIN] (09/09/14 10:04 AM) (09/09/14 8:07 AM) Peripheral Pulse 74 bpm 99 bpm Rate [60-100 bpm] (09/09/14 10:04 AM) (09/09/14 8:07 AM) Weight 81.818 kg (09/09/14 8:07 AM) Body Mass Index 30.96 m2 (09/09/14 8:07 AM) Problem List Condition Effective Dates Status Health Status Informant Kidney Active stone(Confirmed) Vaginal bleeding Active problem(Confirmed) Vaginal Active delivery(Confirmed) Allergies, Adverse Reactions, Alerts Substance Reaction Severity Status NKDA NKDA - No known drug allergies Active Medications ciprofloxacin 750 mg oral tablet 750 mg=1 tab, PO, Q12H, # 20 tab, 0 Refill(s) Start Date: 09/09/14 Stop Date: 09/19/14 Status: Ordered ketOROLAC 30 mg, Route: IVP, Drug form: INJ, ONCE, Dosing Weight 81.818, kg, Priority: STA T, Start date: 09/09/14 9:29:00, Stop date: 09/09/14 9:29:00 Start Date: 09/09/14 Stop Date: 09/09/14 Status: Completed morphine Sulfate 4 mg, Route: IVP, Drug form: INJ, ONCE, Dosing Weight 81.818, kg, Priority: STAT , Start date: 09/09/14 8:28:00, Stop date: 09/09/14 8:28:00 Start Date: 09/09/14 Stop Date: 09/09/14 Status: Completed Lith[place] 10/325 oral tablet 1 tab, Route: PO, Drug Form: TAB, Dosing Weight 81.818, kg, ONCE, STAT, Start da te: 09/09/14 10:06:00, Stop date: 09/09/14 10:06:00 Start Date: 09/09/14 Stop Date: 09/09/14 Status: Completed NS (Bolus) IV 1,000 mL, 1,000 ml/hr, Infuse Over: 1 hr, Route: IV, ONCE, Priority: STAT, Dosin g Weight 81.818 kg, Start date: 09/09/14 8:27:00, Duration: 1 doses or times, St op date: 09/09/14 8:27:00 Start Date: 09/09/14 Stop Date: 09/09/14 Status: Completed Rocephin 1 gm, Route: IVPB, Drug form: PDR/INJ, ONCE, Dosing Weight 81.818, kg, Priority: STAT, Start date: 09/09/14 9:25:00, Stop date: 09/09/14 9:25:00 Start Date: 09/09/14 Stop Date: 09/09/14 Status: Completed Rocephin 1 gm, Route: IM, Drug form: PDR/INJ, ONCE, Dosing Weight 81.818, kg, Priority: S TAT, Start date: 09/09/14 9:04:00, Stop date: 09/09/14 9:04:00 Start Date: 09/09/14 Stop Date: 09/09/14 Status: Completed Tylenol with Codeine #3 oral tablet 1 - 2 tab, PO, Q4H, PRN Pain, # 20 tab, 0 Refill(s) Start Date: 09/09/14 Stop Date: 09/11/14 Status: Ordered Ultracet oral tablet 2 tab, PO, Q6H, PRN for pain, # 56 tab, 0 Refill(s) Start Date: 09/09/14 Stop Date: 09/09/14 Status: Discontinued Zofran 4 mg, Route: IVP, Drug form: INJ, ONCE, Dosing Weight 81.818, kg, Priority: STAT , Start date: 09/09/14 8:28:00, Stop date: 09/09/14 8:28:00 Start Date: 09/09/14 Stop Date: 09/09/14 Status: Completed Zofran 4 mg oral tablet 4 mg=1 tab, PO, BID, # 10 tab, 0 Refill(s) Start Date: 09/09/14 Stop Date: 09/14/14 Status: Ordered Results ELECTROLYTES Most recent to 1 oldest [Reference Range]: Sodium Lvl [135-145 139 mEq/L mEq/L] (09/09/14 8:41 AM) Potassium Lvl 3.8 mEq/L [3.5-5.1 mEq/L] (09/09/14 8:41 AM) Chloride Lvl [95-109 108 mEq/L mEq/L] (09/09/14 8:41 AM) CO2 [24-32 mEq/L] 24 mEq/L (09/09/14 8:41 AM) AGAP [10.0-20.0 10.8 mEq/L mEq/L] (09/09/14 8:41 AM) CHEM PANEL Most recent to 1 oldest [Reference Range]: Creatinine Lvl 1.1 mg/dL [0.5-1.4 mg/dL] (09/09/14 8:41 AM) eGFR 65 mL/min/1.73m2 1 *NA* (09/09/14 8:41 AM) BUN [7-22 mg/dL] 16 mg/dL (09/09/14 8:41 AM) Glucose Lvl [70-99 117 mg/dL 2 mg/dL] *HI* (09/09/14 8:41 AM) Calcium Lvl 8.3 mg/dL [8.5-10.5 mg/dL] *LOW* (09/09/14 8:41 AM) 1Result Comment: The eGFR is calculated [...] values reflect the clinical guidelines of the [place] [employer]. URINE AND STOOL Most recent to 1 oldest [Reference Range]: UA Turbidity [Clear] Slight *ABN* (09/09/14 8:21 AM) UA Color Ltyellow *NA* (09/09/14 8:21 AM) UA pH [5.0-8.0] 6.0 (09/09/14 8:21 AM) UA Spec Grav 1.014 [<=1.030] (09/09/14 8:21 AM) UA Glucose [Negative Negative mg/dL mg/dL] *NA* (09/09/14 8:21 AM) UA Blood [Negative] Negative (09/09/14 8:21 AM) UA Ketones [Negative Negative mg/dL mg/dL] *NA* (09/09/14 8:21 AM) UA Protein [Negative Negative mg/dL mg/dL] (09/09/14 8:21 AM) UA Urobilinogen <=1.0 mg/dL [0.1-1.0 mg/dL] *NA* (09/09/14 8:21 AM) UA Bili [Negative] Negative *NA* (09/09/14 8:21 AM) UA Leuk Est Moderate [Negative] *ABN* (09/09/14 8:21 AM) UA Nitrite Negative [Negative] (09/09/14 8:21 AM) UA WBC [0-5 /HPF] 50 /HPF *HI* (09/09/14 8:21 AM) UA RBC [0-2 /HPF] 4 /HPF *HI* (09/09/14 8:21 AM) UA Sq Epi [Few /LPF] Few /LPF *NA* (09/09/14 8:21 AM) HEMATOLOGY Most recent to 1 oldest [Reference Range]: WBC [3.7-10.4 K/CMM] 5.8 K/CMM (09/09/14 8:41 AM) RBC [4.20-5.40 4.55 M/CMM M/CMM] (09/09/14 8:41 AM) Hgb [12.0-16.0 g/dL] 13.5 g/dL (09/09/14 8:41 AM) Hct [36.0-48.0 %] 39.9 % (09/09/14 8:41 AM) MCV [80.0-98.0 fL] 87.7 fL (09/09/14 8:41 AM) MCH [27.0-31.0 pg] 29.6 pg (09/09/14 8:41 AM) MCHC [32.0-36.0 33.7 g/dL g/dL] (09/09/14 8:41 AM) RDW [11.5-14.5 %] 13.8 % (09/09/14 8:41 AM) Platelet [133-450 215 K/CMM K/CMM] (09/09/14 8:41 AM) MPV [7.4-10.4 fL] 8.2 fL (09/09/14 8:41 AM) Segs [45.0-75.0 %] 67.1 % (09/09/14 8:41 AM) Lymphocytes 25.8 % [20.0-40.0 %] (09/09/14 8:41 AM) Monocytes [2.0-12.0 3.6 % %] (09/09/14 8:41 AM) Eosinophils [0.0-4.0 2.6 % %] (09/09/14 8:41 AM) Basophils [0.0-1.0 0.9 % %] (09/09/14 8:41 AM) Segs-Bands # 3.9 K/CMM [1.5-8.1 K/CMM] (09/09/14 8:41 AM) Lymphocytes # 1.5 K/CMM [1.0-5.5 K/CMM] (09/09/14 8:41 AM) Monocytes # [0.0-0.8 0.2 K/CMM K/CMM] (09/09/14 8:41 AM) Eosinophils # 0.2 K/CMM [0.0-0.5 K/CMM] (09/09/14 8:41 AM) Basophils # [0.0-0.2 0.1 K/CMM K/CMM] (09/09/14 8:41 AM) Immunizations No data available for this [...]
--- OUTSIDE RECORDS SUMMARY | 2018-11-10 00:11 | XMS REPORT | Summary of Care ---
Author Author [facility] Organization [facility] Address Unknown Phone Unavailable Encounter BELIA Johnson(YANY) [id number] Date(s): 01/18/15 - 01/18/15 [facility] [address] [place] [address]- Discharge Diagnosis: Nausea and vomiting in adult Discharge Diagnosis: Dysuria Discharge Diagnosis: UTI (urinary tract infection), bacterial Discharge Disposition: Home Attending Physician: Martinez Babcock MD Vital Signs Most recent to 1 2 oldest [Reference Range]: Height 162.56 cm (01/18/15 8:18 AM) Most recent to 1 2 oldest [Reference Range]: Temperature Oral 98.1 DegF 98.3 DegF [96.4-99.1 DegF] (01/18/15 11:47 AM) (01/18/15 8:18 AM) Most recent to 1 2 oldest [Reference Range]: Blood Pressure 124/75 mmHg 107/63 mmHg [90-140/60-90 mmHg] (01/18/15 11:47 AM) (01/18/15 8:18 AM) Most recent to 1 2 oldest [Reference Range]: Respiratory Rate 18 BRMIN 18 BRMIN [14-20 BRMIN] (01/18/15 11:47 AM) (01/18/15 8:18 AM) Most recent to 1 2 oldest [Reference Range]: Peripheral Pulse 52 bpm 64 bpm Rate [60-100 bpm] *LOW* (01/18/15 8:18 AM) (01/18/15 11:47 AM) Most recent to 1 2 oldest [Reference Range]: Weight 81.818 kg (01/18/15 8:18 AM) Most recent to 1 2 oldest [Reference Range]: Body Mass Index 30.96 m2 (01/18/15 8:18 AM) Problem List Condition Effective Dates Status Health Status Informant Kidney Active stone(Confirmed) Vaginal bleeding Active problem(Confirmed) Vaginal Active delivery(Confirmed) Allergies, Adverse Reactions, Alerts Substance Reaction Severity Status NKDA NKDA - No known drug allergies Active Medications Cipro 500 mg oral tablet 500 mg=1 tab, PO, BID, X 10 day, # 20 tab, 0 Refill(s), Pharmacy: [facility] [id number] Start Date: 01/18/15 Stop Date: 01/28/15 Status: Ordered ibuprofen 800 mg oral tablet 800 mg=1 tab, PO, Q8H, PRN Pain, Take with food, # 30 tab, 0 Refill(s), Pharmacy : [facility] [id number] Special Instructions: Take with food Start Date: 01/18/15 Status: Ordered morphine Sulfate 4 mg, Route: IVP, ONCE, Dosing Weight 81.818, kg, Start date: 01/18/15 9:29:00, Stop date: 01/18/15 9:29:00 Start Date: 01/18/15 Stop Date: 01/18/15 Status: Completed morphine Sulfate 4 mg, Route: IVP, ONCE, Dosing Weight 81.818, kg, Start date: 01/18/15 8:52:00, Stop date: 01/18/15 8:52:00 Start Date: 01/18/15 Stop Date: 01/18/15 Status: Completed Phenergan 12.5 mg, Route: IVP Central, ONCE, Dosing Weight 81.818, kg, PRN Nausea & Vomiting, Start date: 01/18/15 8:51:00 Start Date: 01/18/15 Stop Date: 01/18/15 Status: Completed Phenergan 25 mg oral tablet 25 mg=1 tab, PO, Q4H, PRN Nausea, # 15 tab, 0 Refill(s), Pharmacy: [facility] [id number] Start Date: 01/18/15 Stop Date: 01/21/15 Status: Ordered Rocephin 1 gm, Route: IV, ONCE, Dosing Weight 81.818, kg, Start date: 01/18/15 9:29:00, S top date: 01/18/15 9:29:00 Start Date: 01/18/15 Stop Date: 01/18/15 Status: Completed Sodium Chloride 0.9% (Bolus) IV 1,000 mL, 1,000 ml/hr, Infuse Over: 1 hr, Route: IV, ONCE, Priority: STAT, Dosin g Weight 81.818 kg, Start date: 01/18/15 9:35:00, Duration: 1 doses or times, St op date: 01/18/15 9:35:00 Start Date: 01/18/15 Stop Date: 01/18/15 Status: Completed Ultram 50 mg oral tablet 1 - 2 tabs, PO, Q4-6H, PRN as needed for pain, X 7 day, # 24 tab, 0 Refill(s) Start Date: 01/18/15 Stop Date: 01/18/15 Status: Discontinued Zofran 4 mg, Route: IVP, ONCE, Dosing Weight 81.818, kg, Start date: 01/18/15 9:29:00, Stop date: 01/18/15 9:29:00 Start Date: 01/18/15 Stop Date: 01/18/15 Status: Completed Results ELECTROLYTES Most recent to 1 oldest [Reference Range]: Sodium Lvl [135-145 138 mEq/L mEq/L] (01/18/15 8:57 AM) Potassium Lvl 4.3 mEq/L [3.5-5.1 mEq/L] (01/18/15 8:57 AM) Chloride Lvl [95-109 104 mEq/L mEq/L] (01/18/15 8:57 AM) CO2 [24-32 mEq/L] 29 mEq/L (01/18/15 8:57 AM) AGAP [10.0-20.0 9.3 mEq/L mEq/L] *LOW* (01/18/15 8:57 AM) CHEM PANEL Most recent to 1 oldest [Reference Range]: Creatinine Lvl 0.9 mg/dL [0.5-1.4 mg/dL] (01/18/15 8:57 AM) eGFR 82 mL/min/1.73m2 1 *NA* (01/18/15 8:57 AM) BUN [7-22 mg/dL] 13 mg/dL (01/18/15 8:57 AM) Glucose Lvl [70-99 93 mg/dL mg/dL] (01/18/15 8:57 AM) Calcium Lvl 8.6 mg/dL [8.5-10.5 mg/dL] (01/18/15 8:57 AM) 1Result Comment: The eGFR is [...] oldest [Reference Range]: U Preg [Negative] Negative (01/18/15 8:57 AM) URINE AND STOOL Most recent to 1 oldest [Reference Range]: UA Turbidity [Clear] Clear (01/18/15 8:57 AM) UA Color [Yellow] Yellow *NA* (01/18/15 8:57 AM) UA pH [5.0-8.0] 7.0 (01/18/15 8:57 AM) UA Spec Grav 1.005 [<=1.030] (01/18/15 8:57 AM) UA Glucose [Negative Negative mg/dL mg/dL] *NA* (01/18/15 8:57 AM) UA Blood [Negative] Negative (01/18/15 8:57 AM) UA Ketones [Negative Negative mg/dL mg/dL] *NA* (01/18/15 8:57 AM) UA Protein [Negative Negative mg/dL mg/dL] (01/18/15 8:57 AM) UA Urobilinogen <=1.0 mg/dL [0.1-1.0 mg/dL] *NA* (01/18/15 8:57 AM) UA Bili [Negative] Negative *NA* (01/18/15 8:57 AM) UA Leuk Est Negative [Negative] (01/18/15 8:57 AM) UA Nitrite Negative [Negative] (01/18/15 8:57 AM) UA WBC [0-5 /HPF] 2 /HPF (01/18/15 8:57 AM) UA RBC [0-2 /HPF] 4 /HPF *HI* (01/18/15 8:57 AM) UA Sq Epi [Few /LPF] Occasional /LPF *NA* (01/18/15 8:57 AM) HEMATOLOGY Most recent to 1 oldest [Reference Range]: WBC [3.7-10.4 K/CMM] 5.6 K/CMM (01/18/15 8:57 AM) RBC [4.20-5.40 4.69 M/CMM M/CMM] (01/18/15 8:57 AM) Hgb [12.0-16.0 g/dL] 14.2 g/dL (01/18/15 8:57 AM) Hct [36.0-48.0 %] 41.2 % (01/18/15 8:57 AM) MCV [80.0-98.0 fL] 87.8 fL (01/18/15 8:57 AM) MCH [27.0-31.0 pg] 30.3 pg (01/18/15 8:57 AM) MCHC [32.0-36.0 34.6 g/dL g/dL] (01/18/15 8:57 AM) RDW [11.5-14.5 %] 13.7 % (01/18/15 8:57 AM) Platelet [133-450 199 K/CMM K/CMM] (01/18/15 8:57 AM) MPV [7.4-10.4 fL] 8.4 fL (01/18/15 8:57 AM) Segs [45.0-75.0 %] 61.9 % (01/18/15 8:57 AM) Lymphocytes 28.4 % [20.0-40.0 %] (01/18/15 8:57 AM) Monocytes [2.0-12.0 6.4 % %] (01/18/15 8:57 AM) Eosinophils [0.0-4.0 1.9 % %] (01/18/15 8:57 AM) Basophils [0.0-1.0 1.4 % %] *HI* (01/18/15 8:57 AM) Segs-Bands # 3.5 K/CMM [1.5-8.1 K/CMM] (01/18/15 8:57 AM) Lymphocytes # 1.6 K/CMM [1.0-5.5 K/CMM] (01/18/15 8:57 AM) Monocytes # [0.0-0.8 0.4 K/CMM K/CMM] (01/18/15 8:57 AM) Eosinophils # 0.1 K/CMM [0.0-0.5 K/CMM] (01/18/15 8:57 AM) Basophils # [0.0-0.2 0.1 K/CMM K/CMM] (01/18/15 8:57 AM) Immunizations No data available for this [...]
--- OUTSIDE RECORDS SUMMARY | 2018-11-10 00:12 | XMS REPORT | Summary of Care ---
Author Author [facility] Organization [facility] Address Unknown Phone Unavailable Encounter BELIA Johnson(YANY) [id number] Date(s): 08/07/15 - 08/08/15 [facility] [address] [place] [address]- [phone] Discharge Diagnosis: Lower abdominal pain, unspecified Discharge Diagnosis: Low back pain Discharge Disposition: Home Attending Physician: Chan Gunn MD Vital Signs 1 2 3 Most recent to oldest [Reference Range]: 162.56 cm (08/07/15 7:31 PM) Height 97.8 DegF (08/08/15 3:17 AM) 97.6 DegF (08/08/15 1:12 AM) 98.1 DegF (08/07/15 7:31 PM) Temperature Oral [96.4-99.1 DegF] 110/70 mmHg (08/08/15 3:17 AM) 108/64 mmHg (08/08/15 1:12 AM) 124/79 mmHg (08/07/15 7:31 PM) Blood Pressure [90-140/60-90 mmHg] 16 BRMIN (08/08/15 3:17 AM) 18 BRMIN (08/08/15 1:12 AM) 18 BRMIN (08/07/15 7:31 PM) Respiratory Rate [14-20 BRMIN] 60 bpm (08/08/15 3:17 AM) 63 bpm (08/08/15 1:12 AM) 65 bpm (08/07/15 7:31 PM) Peripheral Pulse Rate [60-100 bpm] 81.818 kg (08/07/15 7:31 PM) Weight 30.96 m2 (08/07/15 7:31 PM) Body Mass Index Problem List Condition Effective Dates Status Health Status Informant Kidney Active stone(Confirmed) Ovarian Resolved cyst(Confirmed) Vaginal bleeding Active problem(Confirmed) Vaginal Active delivery(Confirmed) Allergies, Adverse Reactions, Alerts Substance Reaction Severity Status NKDA NKDA - No known drug allergies Active Medications Flexeril 10 mg oral tablet 10 mg, PO, TID, PRN Muscle Spasm, X 10 day, # 30 tab, 0 Refill(s) Start Date: 08/08/15 Stop Date: 08/18/15 Status: Ordered morphine Sulfate 4 mg, Route: IVP, Drug form: INJ, ONCE, Dosing Weight 81.818, kg, Priority: STAT , Start date: 08/08/15 2:45:00, Stop date: 08/08/15 2:45:00 Start Date: 08/08/15 Stop Date: 08/08/15 Status: Completed morphine Sulfate 4 mg, 2 mL, Route: IVP, Drug form: INJ, ONCE, Dosing Weight 81.818, kg, Priority : STAT, Start date: 08/07/15 19:55:00, Stop date: 08/07/15 19:55:00 Notes: (Same as:MORPhine Sulfate) Start Date: 08/07/15 Stop Date: 08/07/15 Status: Completed morphine Sulfate 4 mg, Route: IVP, Drug form: INJ, ONCE, Dosing Weight 81.818, kg, Priority: STAT , Start date: 08/08/15 0:55:00, Stop date: 08/08/15 0:55:00 Start Date: 08/08/15 Stop Date: 08/08/15 Status: Completed ondansetron 4 mg, 2 mL, Route: IVP, Drug form: INJ, ONCE, Dosing Weight 81.818, kg, Priority : STAT, Start date: 08/07/15 19:55:00, Stop date: 08/07/15 19:55:00 Notes: (Same as: Kimber) MEDICATION WASTE Product Size: 4 mgProduct Was luisito: ___ mg Start Date: 08/07/15 Stop Date: 08/07/15 Status: Completed Saline Flush 0.9% 10 mL, Route: IVP, Drug Form: INJ, Dosing Weight 81.818, kg, PRN, PRN Line Flush , Start date: 08/07/15 19:55:00, Duration: 30 day, Stop date: 09/06/15 20:54:00 Notes: (Same as: BD Posiflush) Start Date: 08/07/15 Stop Date: 08/08/15 Status: Discontinued Sodium Chloride 0.9% (Bolus) IV 1,000 mL, 1000 ml/hr, Infuse Over: 1 hr, Route: IV, 1,000, Drug form: INJ, ONCE, Priority: STAT, Dosing Weight 81.818 kg, Start date: 08/07/15 19:55:00, Duratio n: 1 doses or times, Stop date: 08/07/15 19:55:00 Start Date: 08/07/15 Stop Date: 08/07/15 Status: Completed Tylenol with Codeine #3 oral tablet 1 - 2 tab, PO, Q4H, PRN Pain, X 2 day, # 20 tab, 0 Refill(s) Start Date: 08/08/15 Stop Date: 08/10/15 Status: Completed Zofran 4 mg, Route: IVP, Drug form: INJ, ONCE, Dosing Weight 81.818, kg, Priority: STAT , Start date: 08/08/15 0:55:00, Stop date: 08/08/15 0:55:00 Start Date: 08/08/15 Stop Date: 08/08/15 Status: Completed Zofran ODT 4 mg oral tablet, disintegrating 4 mg=1 tab, PO, Q8H, PRN Nausea and Vomiting, Dissolve tab under tongue, X 5 day , # 15 tab, 0 Refill(s) Start Date: 08/08/15 Stop Date: 08/13/15 Status: Ordered Results ELECTROLYTES Most recent to 1 oldest [Reference Range]: Sodium Lvl [135-145 140 mEq/L mEq/L] (08/07/15 11:02 PM) Potassium Lvl 3.5 mEq/L [3.5-5.1 mEq/L] (08/07/15 11:02 PM) Chloride Lvl [95-109 106 mEq/L mEq/L] (08/07/15 11:02 PM) CO2 [24-32 mEq/L] 26 mEq/L (08/07/15 11:02 PM) AGAP [10.0-20.0 11.5 mEq/L mEq/L] (3/8/16 11:02 PM) CHEM PANEL Most recent to 1 oldest [Reference Range]: Creatinine Lvl 0.64 mg/dL [0.50-1.40 mg/dL] (08/07/15: PM) eGFR 114 mL/min/1.73m2 1 *NA* (08/07/15 PM) BUN [7-22 mg/dL] 10 mg/dL (08/07/15: PM) B/C Ratio [6-25] 16 (08/07/15 PM) Glucose Lvl [70-99 85 mg/dL mg/dL] (08/07/15: PM) Total Protein 6.3 g/dL [6.4-8.4 g/dL] *LOW* (08/07/15 PM) Albumin Lvl [3.5-5.0 3.6 g/dL g/dL] (08/07/15 PM) Globulin [2.0-4.0 2.7 g/dL g/dL] (08/07/15 PM) A/G Ratio [0.7-1.6] 1.3 (08/07/15: PM) Calcium Lvl 8.0 mg/dL [8.5-10.5 mg/dL] *LOW* (08/07/15: PM) ALT [0-65 unit/L] 20 unit/L (08/07/15: PM) AST [0-37 unit/L] 12 unit/L (08/07/15: PM) Alk Phos [39-136 70 unit/L unit/L] (08/07/15: PM) Bili Total [0.2-1.3 0.4 mg/dL mg/dL] (08/07/15 11: PM) 1Result Comment: The eGFR is calculated [...] [Reference Range]: S Preg [Negative] Negative *NA* (08/07/15 11:02 PM) URINE AND STOOL Most recent to 1 oldest [Reference Range]: UA Turbidity [Clear] Clear (08/07/15 8:26 PM) UA Color Ltyellow *NA* (08/07/15 8:26 PM) UA pH [5.0-8.0] 6.0 (08/07/15 8:26 PM) UA Spec Grav 1.014 [<=1.030] (08/07/15 8:26 PM) UA Glucose [Negative Negative mg/dL mg/dL] *NA* (08/07/15 8:26 PM) UA Blood [Negative] Negative (08/07/15 8:26 PM) UA Ketones [Negative Negative mg/dL mg/dL] *NA* (08/07/15 8:26 PM) UA Protein [Negative Negative mg/dL mg/dL] (08/07/15 8:26 PM) UA Urobilinogen <=1.0 mg/dL [0.1-1.0 mg/dL] *NA* (08/07/15 8:26 PM) UA Bili [Negative] Negative *NA* (08/07/15 8:26 PM) UA Leuk Est Negative [Negative] (08/07/15 8:26 PM) UA Nitrite Negative [Negative] (08/07/15 8:26 PM) UA WBC [0-5 /HPF] 2 /HPF (08/07/15 8:26 PM) UA RBC [0-2 /HPF] 4 /HPF *HI* (08/07/15 8:26 PM) UA Sq Epi [Few /LPF] Occasional /LPF *NA* (08/07/15 8:26 PM) HEMATOLOGY Most recent to 1 oldest [Reference Range]: WBC [3.7-10.4 K/CMM] 6.7 K/CMM (08/07/15:02 PM) RBC [4.20-5.40 4.39 M/CMM M/CMM] (08/07/15:02 PM) Hgb [12.0-16.0 g/dL] 12.5 g/dL (08/07/15:02 PM) Hct [36.0-48.0 %] 38.1 % (08/07/15: PM) MCV [80.0-98.0 fL] 86.7 fL (08/07/15: PM) MCH [27.0-31.0 pg] 28.6 pg (08/07/15: PM) MCHC [32.0-36.0 32.9 g/dL g/dL] (08/07/15: PM) RDW [11.5-14.5 %] 13.8 % (08/07/15 11: PM) Platelet [133-450 211 K/CMM K/CMM] (08/07/15: PM) MPV [7.4-10.4 fL] 8.0 fL (08/07/15 11:02 PM) Segs [45.0-75.0 %] 50.4 % (08/07/15 11: PM) Lymphocytes 38.2 % [20.0-40.0 %] (08/07/15 11:02 PM) Monocytes [2.0-12.0 7.5 % %] (08/07/15 11: PM) Eosinophils [0.0-4.0 2.9 % %] (08/07/15 11:02 PM) Basophils [0.0-1.0 1.0 % %] (08/07/15 11:02 PM) Segs-Bands # 3.4 K/CMM [1.5-8.1 K/CMM] (08/07/15 11:02 PM) Lymphocytes # 2.6 K/CMM [1.0-5.5 K/CMM] (08/07/15 11:02 PM) Monocytes # [0.0-0.8 0.5 K/CMM K/CMM] (08/07/15 11:02 PM) Eosinophils # 0.2 K/CMM [0.0-0.5 K/CMM] (08/07/15 11:02 PM) Basophils # [0.0-0.2 0.1 K/CMM K/CMM] (08/07/15 11:02 PM) Immunizations No data available for this section Procedures Procedure Date Related Diagnosis Body Site Cholecystectomy Cholecystectomy Hysterectomy Lithotripsy of kidney Tubal ligation Social History Social History Type Response Substance Abuse Use: None. Alcohol Current, Frequency: 1-2 times per month. Smoking Status Never smoker; Exposure to Tobacco Smoke None; Cigarette Smoking Last 365 Days No; Reg Smoking Cessation Counseling Yes Assessment and Plan No data available for this section
--- OUTSIDE RECORDS SUMMARY | 2018-11-10 00:12 | XMS REPORT | Summary of Care ---
Author Author [facility] Organization [facility] Address Unknown Phone Unavailable Encounter BELIA Johnson(YANY) [id number] Date(s): 08/09/15 - 08/10/15 [facility] [address] [place] [address]- [phone] Discharge Diagnosis: Acute low back pain Discharge Diagnosis: Acute gastroenteritis Discharge Disposition: Home Attending Physician: Nicolás Whalen MD Vital Signs 1 2 3 Most recent to oldest [Reference Range]: 162.56 cm (08/09/15 5:58 PM) Height 98.1 DegF (08/10/15 2:13 AM) 98.2 DegF (08/10/15 12:30 AM) 98.2 DegF (08/09/15 5:58 PM) Temperature Oral [96.4-99.1 DegF] 98/63 mmHg (08/10/15 2:13 AM) 110/55 mmHg (08/10/15 12:30 AM) 119/79 mmHg (08/09/15 5:58 PM) Blood Pressure [90-140/60-90 mmHg] 16 BRMIN (08/10/15 2:13 AM) 18 BRMIN (08/10/15 12:30 AM) 18 BRMIN (08/09/15 5:58 PM) Respiratory Rate [14-20 BRMIN] 71 bpm (08/10/15 2:13 AM) 72 bpm (08/10/15 12:30 AM) 68 bpm (08/09/15 5:58 PM) Peripheral Pulse Rate [60-100 bpm] 81.818 kg (08/09/15 5:58 PM) Weight 30.96 m2 (08/09/15 5:58 PM) Body Mass Index Problem List Condition [...] # 30 tab, 0 Refill(s) Start Date: 08/10/15 Stop Date: 08/20/15 Status: Ordered Flexeril 10 mg oral tablet 10 mg, PO, TID, PRN Muscle Spasm, X 10 day, # 30 tab, 0 Refill(s) Start Date: 08/10/15 Stop Date: 08/20/15 Status: Ordered ketOROLAC 30 mg, 1 mL, Route: IVP, Drug form: INJ, ONCE, Dosing Weight 81.818, kg, Priorit y: STAT, Start date: 08/10/15 0:29:00, Stop date: 08/10/15 0:29:00 Notes: (Same as:Toradol) IV bolus must be given >15 seconds. Give IM administration slowly and deeply into the muscle.Not for use > 4 days MEDICATION WASTE Product Size: 30 mgProduct Wasted: ___ mg Start Date: 08/10/15 Stop Date: 08/10/15 Status: Completed Lomotil oral tablet 2 tab, PO, QID, PRN for loose stool, X 7 day, # 24 tab, 0 Refill(s) Start Date: 08/10/15 Stop Date: 08/17/15 Status: Ordered Lomotil oral tablet 2 tab, Route: PO, Drug Form: TAB, Dosing Weight 81.818, kg, QID, Start date: 04/16 9:00:00, Duration: 30 day, Stop date: 09/08/15 21:00:00 Notes: (Same As: Lomotil) MAX Adult dose=8 tabs/day Start Date: 08/10/15 Stop Date: 08/10/15 Status: Canceled [place] 10/325 oral tablet 1 tab, Route: PO, Drug Form: TAB, Dosing Weight 81.818, kg, ONCE, STAT, Start da te: 08/10/15 1:17:00, Stop date: 08/10/15 1:17:00 Notes: Do not exceed 4gm/day of acetaminophen. (Same as: [place] 325/10) Start Date: 08/10/15 Stop Date: 08/10/15 Status: Completed Phenergan 25 mg oral tablet 25 mg=1 tab, PO, Q4H, PRN Nausea, X 3 day, # 30 tab, 0 Refill(s) Start Date: 08/10/15 Stop Date: 08/13/15 Status: Ordered Saline Flush 0.9% 10 mL, Route: IVP, Drug Form: INJ, Dosing Weight 81.818, kg, PRN, PRN Line Flush , Start date: 08/09/15 18:13:00, Duration: 30 day, Stop date: 09/08/15 19:12:00 Notes: (Same as: BD Posiflush) Start Date: 08/09/15 Stop Date: 08/10/15 Status: Discontinued Tylenol with Codeine #3 oral tablet 1 - 2 tab, PO, Q4H, PRN Pain, X 4 day, # 36 tab, 0 Refill(s) Start Date: 08/10/15 Stop Date: 08/14/15 Status: Ordered Zofran 4 mg, 2 mL, Route: IVP, Drug form: INJ, ONCE, Dosing Weight 81.818, kg, Priority : STAT, Start date: 08/10/15 0:29:00, Stop date: 08/10/15 0:29:00 Notes: (Same as: Zofran) MEDICATION WASTE Product Size: 4 mgProduct Was luisito: ___ mg Start Date: 08/10/15 Stop Date: 08/10/15 Status: Completed Results ELECTROLYTES Most recent to 1 oldest [Reference Range]: Sodium Lvl [135-145 139 mEq/L mEq/L] (08/09/15 11:12 PM) Potassium Lvl 3.5 mEq/L [3.5-5.1 mEq/L] (08/09/15 11:12 PM) Chloride Lvl [95-109 103 mEq/L mEq/L] (08/09/15 11:12 PM) CO2 [24-32 mEq/L] 31 mEq/L (08/09/15 11:12 PM) AGAP [10.0-20.0 8.5 mEq/L mEq/L] *LOW* (08/09/15 11:12 PM) CHEM PANEL Most recent to 1 oldest [Reference Range]: Creatinine Lvl 0.85 mg/dL [0.50-1.40 mg/dL] (08/09/15 11:12 PM) eGFR 88 mL/min/1.73m2 1 *NA* (08/09/15:12 PM) BUN [7-22 mg/dL] 8 mg/dL (08/09/15 11:12 PM) B/C Ratio [6-25] 9 (08/09/15 11:12 PM) Glucose Lvl [70-99 102 mg/dL mg/dL] *HI* (08/09/15 11:12 PM) Total Protein 6.9 g/dL [6.4-8.4 g/dL] (08/09/15 11:12 PM) Albumin Lvl [3.5-5.0 4.0 g/dL g/dL] (08/09/15 11:12 PM) Globulin [2.0-4.0 2.9 g/dL g/dL] (08/09/15 11:12 PM) A/G Ratio [0.7-1.6] 1.4 (08/09/15 11:12 PM) Calcium Lvl 8.9 mg/dL [8.5-10.5 mg/dL] (08/09/15 11:12 PM) ALT [0-65 unit/L] 21 unit/L (08/09/15 11:12 PM) AST [0-37 unit/L] 13 unit/L (08/09/15 11:12 PM) Alk Phos [39-136 76 unit/L unit/L] (08/09/15 11:12 PM) Bili Total [0.2-1.3 0.5 mg/dL mg/dL] (08/09/15 11:12 PM) Amylase Lvl [25-115 65 unit/L unit/L] (08/09/15 11:12 PM) Lipase Lvl [73-393 160 unit/L unit/L] (08/09/15 11:12 PM) 1Result Comment: The eGFR is calculated [...] oldest [Reference Range]: U Preg [Negative] Negative (08/09/15 10:29 PM) URINE AND STOOL Most recent to 1 oldest [Reference Range]: UA Turbidity [Clear] Clear (08/09/15 10:29 PM) UA Color Ltyellow *NA* (08/09/15 10:29 PM) UA pH [5.0-8.0] 7.0 (08/09/15 10:29 PM) UA Spec Grav 1.012 [<=1.030] (08/09/15 10:29 PM) UA Glucose [Negative Negative mg/dL mg/dL] *NA* (08/09/15 10:29 PM) UA Blood [Negative] Negative (08/09/15 10:29 PM) UA Ketones [Negative Negative mg/dL mg/dL] *NA* (08/09/15 10:29 PM) UA Protein [Negative Negative mg/dL mg/dL] (08/09/15 10:29 PM) UA Urobilinogen <=1.0 mg/dL [0.1-1.0 mg/dL] *NA* (08/09/15 10:29 PM) UA Bili [Negative] Negative *NA* (08/09/15 10:29 PM) UA Leuk Est Negative [Negative] (08/09/15 10:29 PM) UA Nitrite Negative [Negative] (08/09/15 10:29 PM) UA WBC [0-5 /HPF] 1 /HPF (08/09/15 10:29 PM) UA RBC [0-2 /HPF] 3 /HPF *HI* (08/09/15 10:29 PM) UA Sq Epi [Few /LPF] Occasional /LPF *NA* (08/09/15 10:29 PM) HEMATOLOGY Most recent to 1 oldest [Reference Range]: WBC [3.7-10.4 K/CMM] 6.8 K/CMM (08/09/15 11:12 PM) RBC [4.20-5.40 4.79 M/CMM M/CMM] (08/09/15 11:12 PM) Hgb [12.0-16.0 g/dL] 13.6 g/dL (08/09/15 11:12 PM) Hct [36.0-48.0 %] 41.3 % (08/09/15 11:12 PM) MCV [80.0-98.0 fL] 86.4 fL (08/09/15 11:12 PM) MCH [27.0-31.0 pg] 28.4 pg (08/09/15 11:12 PM) MCHC [32.0-36.0 32.8 g/dL g/dL] (08/09/15 11:12 PM) RDW [11.5-14.5 %] 14.0 % (08/09/15 11:12 PM) Platelet [133-450 221 K/CMM K/CMM] (08/09/15 11:12 PM) MPV [7.4-10.4 fL] 7.6 fL (08/09/15 11:12 PM) Segs [45.0-75.0 %] 55.3 % (08/09/15 11:12 PM) Lymphocytes 34.8 % [20.0-40.0 %] (08/09/15 11:12 PM) Monocytes [2.0-12.0 6.4 % %] (08/09/15 11:12 PM) Eosinophils [0.0-4.0 2.4 % %] (08/09/15 11:12 PM) Basophils [0.0-1.0 1.1 % %] *HI* (08/09/15 11:12 PM) Segs-Bands # 3.8 K/CMM [1.5-8.1 K/CMM] (08/09/15 11:12 PM) Lymphocytes # 2.4 K/CMM [1.0-5.5 K/CMM] (08/09/15 11:12 PM) Monocytes # [0.0-0.8 0.4 K/CMM K/CMM] (08/09/15 11:12 PM) Eosinophils # 0.2 K/CMM [0.0-0.5 K/CMM] (08/09/15 11:12 PM) Basophils # [0.0-0.2 0.1 K/CMM K/CMM] (08/09/15 11:12 PM) Immunizations No data available for this [...]
--- OUTSIDE RECORDS SUMMARY | 2018-11-10 00:12 | XMS REPORT | Summary of Care ---
Author Author [facility] Organization [facility] Address Unknown Phone Unavailable Encounter BELIA Johnson(YANY) [id number] Date(s): 02/11/16 - 02/13/16 [facility] [address] [place] [address]- Discharge Diagnosis: Acute flank pain Discharge Disposition: Home or Self Care Attending Physician: Flavio Wynne MD Admitting Physician: Flavio Wynne MD Vital Signs 1 2 3 Most recent to oldest [Reference Range]: 162.56 cm (02/11/16 7:52 PM) 162.56 cm (02/11/16 8:00 AM) Height 98.0 DegF (02/13/16 12:35 PM) 97.9 DegF (02/13/16 8:36 AM) 98.2 DegF (02/13/16 4:18 AM) Temperature Oral [96.4-99.1 DegF] 103/66 mmHg (02/13/16 12:35 PM) 116/74 mmHg (02/13/16 8:36 AM) 103/61 mmHg (02/13/16 4:18 AM) Blood Pressure [90-140/60-90 mmHg] 16 BRMIN (02/13/16 12:35 PM) 16 BRMIN (02/13/16 8:36 AM) 16 BRMIN (02/13/16 4:18 AM) Respiratory Rate [14-20 BRMIN] 55 bpm *LOW* (02/13/16 12:35 PM) 71 bpm (02/13/16 8:36 AM) 63 bpm (02/13/16 4:18 AM) Peripheral Pulse Rate [60-100 bpm] 86.818 kg (02/11/16 7:52 PM) 86.818 kg (02/11/16 7:51 PM) 81.818 kg (02/11/16 8:00 AM) Weight 32.85 m2 (02/11/16 7:52 PM) 30.96 m2 (02/11/16 8:00 AM) Body Mass Index Problem List Condition Effective Dates Status Health Status Informant Kidney Active stone(Confirmed) Ovarian Resolved cyst(Confirmed) Vaginal bleeding Active problem(Confirmed) Vaginal Active delivery(Confirmed) Allergies, Adverse Reactions, Alerts Substance Reaction Severity Status NKDA NKDA - No known drug allergies Active Medications acetaminophen-hydrocodone 325 mg-5 mg oral tablet 2 tab, Route: PO, Drug Form: TAB, Dosing Weight 81.818, kg, Q4H, PRN Pain Score 7-10, Start date: 02/11/16 18:41:00 CDT, Duration: 30 day, Stop date: 03/12/16 1 8:40:00 CDT Notes: (Same as: [place] 325/5) Do not exceed 4gm/day of acetaminophen. Start Date: 02/11/16 Stop Date: 02/13/16 Status: Discontinued acetaminophen-hydrocodone 325 mg-5 mg oral tablet 1 tab, Route: PO, Drug Form: TAB, Dosing Weight 81.818, kg, Q4H, PRN Pain Score 4-6, Start date: 02/11/16 18:41:00 CDT, Duration: 30 day, Stop date: 03/12/16 18 :40:00 CDT Notes: (Same as: [place] 325/5) Do not exceed 4gm/day of acetaminophen. Start Date: 02/11/16 Stop Date: 02/13/16 Status: Discontinued Dilaudid 0.5 mg, Route: IVP, ONCE, Dosing Weight 81.818, kg, Priority: STAT, Start date: 02/11/16 15:53:00 CDT, Stop date: 02/11/16 15:53:00 CDT Start Date: 02/11/16 Stop Date: 02/11/16 Status: Completed Dilaudid 0.5 mg, Route: IVP, ONCE, Dosing Weight 81.818, kg, Priority: STAT, Start date: 02/11/16 13:20:00 CDT, Stop date: 02/11/16 13:20:00 CDT Start Date: 02/11/16 Stop Date: 02/11/16 Status: Completed Dilaudid 0.5 mg, 0.5 mL, Route: IVP, Drug form: INJ, Q4H, Dosing Weight 86.818, kg, PRN P ain Score 7-10, Start date: 02/12/16 14:12:00 CDT, Duration: 30 day, Stop date: 03/13/16 14:11:00 CDT Start Date: 02/12/16 Stop Date: 02/13/16 Status: Discontinued Dilaudid 1 mg, Route: IV, ONCE, Dosing Weight 81.818, kg, Start date: 02/11/16 9:50:00 CD T, Stop date: 02/11/16 9:50:00 CDT Start Date: 02/11/16 Stop Date: 02/11/16 Status: Completed docusate sodium 100 mg oral capsule 100 mg, 1 cap, Route: PO, Drug form: CAP, BID, Dosing Weight 86.818, kg, Start d ate: 02/12/16 17:00:00 CDT, Duration: 30 day, Stop date: 03/13/16 9:00:00 CDT Notes: (Same as: Colace) (Do Not Crush) Start Date: 02/12/16 Stop Date: 02/13/16 Status: Discontinued morphine Sulfate 2 mg, 1 mL, Route: IVP, Drug form: INJ, Q4H, Dosing Weight 81.818, kg, PRN Pain Score 7-10, Start date: 02/11/16 18:41:00 CDT, Duration: 30 day, Stop date: 03/01 07/17 18:40:00 CDT Notes: (Same as:MORPhine Sulfate) Start Date: 02/11/16 Stop Date: 02/12/16 Status: Discontinued morphine Sulfate 4 mg, Route: IVP, ONCE, Dosing Weight 81.818, kg, Priority: STAT, Start date: 8:49:00 CDT, Stop date: 02/11/16 8:49:00 CDT Start Date: 02/11/16 Stop Date: 02/11/16 Status: Completed [place] 10/325 oral tablet 1 tab, Route: PO, Drug Form: TAB, Dosing Weight 81.818, kg, ONCE, STAT, Start da te: 02/11/16 11:50:00 CDT, Stop date: 02/11/16 11:50:00 CDT Start Date: 02/11/16 Stop Date: 02/11/16 Status: Completed NS (Bolus) IV 1,000 mL, 1,000 ml/hr, Infuse Over: 1 hr, Route: IV, ONCE, Priority: STAT, Dosin g Weight 81.818 kg, Start date: 02/11/16 8:49:00 CDT, Duration: 1 doses or times , Stop date: 02/11/16 8:49:00 CDT Start Date: 02/11/16 Stop Date: 02/11/16 Status: Completed NS (Bolus) IV 1,000 mL, 1,000 ml/hr, Infuse Over: 1 hr, Route: IV, ONCE, Priority: STAT, Dosin g Weight 81.818 kg, Start date: 02/11/16 15:58:00 CDT, Duration: 1 doses or time s, Stop date: 02/11/16 15:58:00 CDT Start Date: 02/11/16 Stop Date: 02/11/16 Status: Completed ondansetron 4 mg, 2 mL, Route: IVP, Drug form: INJ, Q6H, Dosing Weight 81.818, kg, PRN Nause a & Vomiting, Start date: 02/11/16 18:41:00 CDT, Duration: 30 day, Stop date: 03/12/16 18:40:00 CDT Notes: (Same as: Kimber) MEDICATION WASTE Product Size: 4 mgProduct Was luisito: ___ mg Start Date: 02/11/16 Stop Date: 02/12/16 Status: Discontinued oxybutynin 5 mg, 1 tab, Route: PO, Drug form: TAB, TID, Dosing Weight 86.818, kg, PRN Bladd er Spasm, Start date: 02/12/16 15:07:00 CDT, Duration: 30 day, Stop date: 15:06:00 CDT Notes: Same as: Ditropan) Start Date: 02/12/16 Stop Date: 02/13/16 Status: Discontinued Pyridium 200 mg, Route: PO, ONCE, Dosing Weight 81.818, kg, Priority: STAT, Start date: 0 02/11/16 10:09:00 CDT, Stop date: 02/11/16 10:09:00 CDT Start Date: 02/11/16 Stop Date: 02/11/16 Status: Completed Rocephin + sodium chloride 0.9% INJ 100 mL 1 gm, Route: IVPB, [id number], Dosing Weight 86.818, kg, Start date: 02/12/16 2:00: 00 CDT, Duration: 30 day, Stop date: 03/12/16 2:00:00 CDT Notes: (Same As: Rocephin).Use with 100 mL NS and infuse over 30 min MEDICA TION WASTE Product Size: 1000 mgProduct Wasted: ___ mg Start Date: 02/12/16 Stop Date: 02/13/16 Status: Discontinued Saline Flush 0.9% 10 ml, Route: IVP, Drug Form: INJ, Dosing Weight 81.818, kg, PRN, PRN Line Flush , Start date: 02/11/16 18:41:00 CDT, Duration: 30 day, Stop date: 03/12/16 18:40 :00 CDT Notes: (Same as: BD Posiflush) Start Date: 02/11/16 Stop Date: 02/13/16 Status: Discontinued sodium chloride 0.9% 1000 ml INJ 1,000 mL 1,000 mL, Rate: 125 ml/hr, Infuse over: 8 hr, Route: IV, Dosing Weight 81.818 kg , Total Volume: 1,000, Start date: 02/11/16 18:41:00 CDT, Duration: 30 day, Stop date: 03/12/16 18:40:00 CDT Start Date: 02/11/16 Stop Date: 02/13/16 Status: Discontinued Tylenol with Codeine #3 oral tablet 1 tab, PO, Q4H, PRN Pain, X 7 day, # 42 tab, 0 Refill(s) Start Date: 02/13/16 Stop Date: 02/20/16 Status: Ordered Zofran 4 mg, Route: IVP, Drug form: INJ, ONCE, Dosing Weight 81.818, kg, Priority: STAT , Start date: 02/11/16 8:49:00 CDT, Stop date: 02/11/16 8:49:00 CDT Start Date: 02/11/16 Stop Date: 02/11/16 Status: Completed Zofran 4 mg, 2 mL, Route: IVP, Drug form: INJ, Q4H, Dosing Weight 86.818, kg, PRN Nause a, Start date: 02/12/16 14:13:00 CDT, Duration: 30 day, Stop date: 03/13/16 14:1 2:00 CDT Notes: (Same as: Zofran) MEDICATION WASTE Product Size: 4 mgProduct Was luisito: ___ mg Start Date: 02/12/16 Stop Date: 02/13/16 Status: Discontinued Zofran 4 mg, Route: IVP, Drug form: INJ, ONCE, Dosing Weight 81.818, kg, Priority: STAT , Start date: 02/11/16 9:50:00 CDT, Stop date: 02/11/16 9:50:00 CDT Start Date: 02/11/16 Stop Date: 02/11/16 Status: Completed Results ELECTROLYTES Most recent to 1 2 oldest [Reference Range]: Sodium Lvl [135-145 141 mEq/L 139 mEq/L mEq/L] (02/12/16 6:26 AM) (02/11/16 8:51 AM) Potassium Lvl 4.2 mEq/L 4.3 mEq/L [3.5-5.1 mEq/L] (02/12/16 6:26 AM) (02/11/16 8:51 AM) Chloride Lvl [95-109 112 mEq/L 108 mEq/L mEq/L] *HI* (02/11/16 8:51 AM) (02/12/16 6:26 AM) CO2 [24-32 mEq/L] 24 mEq/L 24 mEq/L (02/12/16 6:26 AM) (02/11/16 8:51 AM) AGAP [10.0-20.0 9.2 mEq/L 11.3 mEq/L mEq/L] *LOW* (02/11/16 8:51 AM) (02/12/16 6:26 AM) CHEM PANEL Most recent to 1 2 oldest [Reference Range]: Creatinine Lvl 0.73 mg/dL 0.92 mg/dL [0.50-1.40 mg/dL] (02/12/16 6:26 AM) (02/11/16 8:51 AM) eGFR 105 mL/min/1.73m2 1 80 mL/min/1.73m2 2 *NA* *NA* (02/12/16 6:26 AM) (02/11/16 8:51 AM) BUN [7-22 mg/dL] 14 mg/dL 22 mg/dL (02/12/16 6:26 AM) (02/11/16 8:51 AM) B/C Ratio [6-25] 19 24 (02/12/16 6:26 AM) (02/11/16 8:51 AM) Glucose Lvl [70-99 92 mg/dL 99 mg/dL mg/dL] (02/12/16 6:26 AM) (02/11/16 8:51 AM) Total Protein 5.4 g/dL 6.1 g/dL [6.4-8.4 g/dL] *LOW* *LOW* (02/12/16 6:26 AM) (02/11/16 8:51 AM) Albumin Lvl [3.5-5.0 2.8 g/dL 3.5 g/dL g/dL] *LOW* (02/11/16 8:51 AM) (02/12/16 6:26 AM) Globulin [2.7-4.2 2.6 g/dL 2.6 g/dL g/dL] *LOW* *LOW* (02/12/16 6:26 AM) (02/11/16 8:51 AM) A/G Ratio [0.7-1.6] 1.1 1.3 (02/12/16 6:26 AM) (02/11/16 8:51 AM) Calcium Lvl 7.2 mg/dL 8.1 mg/dL [8.5-10.5 mg/dL] *LOW* *LOW* (02/12/16 6:26 AM) (02/11/16 8:51 AM) Phosphorus [2.5-4.5 2.2 mg/dL mg/dL] *LOW* (02/12/16 6:26 AM) Magnesium Lvl 2.1 mg/dL [1.8-2.4 mg/dL] (02/12/16 6:26 AM) ALT [0-65 unit/L] 14 unit/L 19 unit/L (02/12/16 6:26 AM) (02/11/16 8:51 AM) AST [0-37 unit/L] 11 unit/L 10 unit/L (02/12/16 6:26 AM) (02/11/16 8:51 AM) Alk Phos [39-136 60 unit/L 66 unit/L unit/L] (02/12/16 6:26 AM) (02/11/16 8:51 AM) Bili Total [0.2-1.3 0.5 mg/dL 0.7 mg/dL mg/dL] (02/12/16 6:26 AM) (02/11/16 8:51 AM) Amylase Lvl [25-115 62 unit/L unit/L] (02/11/16 8:51 AM) Lipase Lvl [73-393 108 unit/L unit/L] (02/11/16 8:51 AM) 1Result Comment: The eGFR is [...] oldest [Reference Range]: UA Turbidity [Clear] Clear Clear (02/11/16 4:53 PM) (02/11/16 8:51 AM) UA Color Shania Ltyellow *NA* *NA* (02/11/16 4:53 PM) (02/11/16 8:51 AM) UA pH [5.0-8.0] 5.0 5.0 (02/11/16 4:53 PM) (02/11/16 8:51 AM) UA Spec Grav 1.015 1.011 [<=1.030] (02/11/16 4:53 PM) (02/11/16 8:51 AM) UA Glucose [Negative Negative mg/dL Negative mg/dL mg/dL] *NA* *NA* (02/11/16 4:53 PM) (02/11/16 8:51 AM) UA Blood [Negative] Large Large *ABN* *ABN* (02/11/16 4:53 PM) (02/11/16 8:51 AM) UA Ketones [Negative Negative mg/dL Negative mg/dL mg/dL] *NA* *NA* (02/11/16 4:53 PM) (02/11/16 8:51 AM) UA Protein [Negative 30 mg/dL 30 mg/dL mg/dL] *ABN* *ABN* (02/11/16 4:53 PM) (02/11/16 8:51 AM) UA Urobilinogen 4.0 mg/dL <=1.0 mg/dL [0.1-1.0 mg/dL] *HI* *NA* (02/11/16 4:53 PM) (02/11/16 8:51 AM) UA Bili [Negative] Negative Negative *NA* *NA* (02/11/16 4:53 PM) (02/11/16 8:51 AM) UA Leuk Est Moderate Large [Negative] *ABN* *ABN* (02/11/16 4:53 PM) (02/11/16 8:51 AM) UA Nitrite Positive Negative [Negative] *ABN* (02/11/16 8:51 AM) (02/11/16 4:53 PM) UA WBC [0-5 /HPF] 146 /HPF 37 /HPF *HI* *HI* (02/11/16 4:53 PM) (02/11/16 8:51 AM) UA RBC [0-2 /HPF] >182 /HPF >182 /HPF *HI* *HI* (02/11/16 4:53 PM) (02/11/16 8:51 AM) UA Bacteria [None Occasional /HPF Occasional /HPF Seen /HPF] *NA* *NA* (02/11/16 4:53 PM) (02/11/16 8:51 AM) UA Sq Epi [Few /LPF] Occasional /LPF Few /LPF *NA* *NA* (02/11/16 4:53 PM) (02/11/16 8:51 AM) HEMATOLOGY Most recent to 1 2 oldest [Reference Range]: WBC [3.7-10.4 K/CMM] 6.7 K/CMM 8.7 K/CMM (02/12/16 6:26 AM) (02/11/16 8:51 AM) RBC [4.20-5.40 4.00 M/CMM 4.36 M/CMM M/CMM] *LOW* (02/11/16 8:51 AM) (02/12/16 6:26 AM) Hgb [12.0-16.0 g/dL] 11.5 g/dL 12.2 g/dL *LOW* (02/11/16 8:51 AM) (02/12/16 6:26 AM) Hct [36.0-48.0 %] 34.1 % 37.5 % *LOW* (02/11/16 8:51 AM) (02/12/16 6:26 AM) MCV [80.0-98.0 fL] 85.3 fL 86.0 fL (02/12/16 6:26 AM) (02/11/16 8:51 AM) MCH [27.0-31.0 pg] 28.6 pg 28.1 pg (02/12/16 6:26 AM) (02/11/16 8:51 AM) MCHC [32.0-36.0 33.6 g/dL 32.7 g/dL g/dL] (02/12/16 6:26 AM) (02/11/16 8:51 AM) RDW [11.5-14.5 %] 13.9 % 14.1 % (02/12/16 6:26 AM) (02/11/16 8:51 AM) Platelet [133-450 256 K/CMM 261 K/CMM K/CMM] (02/12/16 6:26 AM) (02/11/16 8:51 AM) MPV [7.4-10.4 fL] 7.7 fL 7.8 fL (02/12/16 6:26 AM) (02/11/16 8:51 AM) Segs [45.0-75.0 %] 56.4 % 70.7 % (02/12/16 6:26 AM) (02/11/16 8:51 AM) Lymphocytes 27.3 % 16.2 % [20.0-40.0 %] (02/12/16 6:26 AM) *LOW* (02/11/16 8:51 AM) Monocytes [2.0-12.0 5.9 % 4.3 % %] (02/12/16 6:26 AM) (02/11/16 8:51 AM) Eosinophils [0.0-4.0 9.3 % 8.2 % %] *HI* *HI* (02/12/16 6:26 AM) (02/11/16 8:51 AM) Basophils [0.0-1.0 1.1 % 0.6 % %] *HI* (02/11/16 8:51 AM) (02/12/16 6:26 AM) Segs-Bands # 3.8 K/CMM 6.1 K/CMM [1.5-8.1 K/CMM] (02/12/16 6:26 AM) (02/11/16 8:51 AM) Lymphocytes # 1.8 K/CMM 1.4 K/CMM [1.0-5.5 K/CMM] (02/12/16 6:26 AM) (02/11/16 8:51 AM) Monocytes # [0.0-0.8 0.4 K/CMM 0.4 K/CMM K/CMM] (02/12/16 6:26 AM) (02/11/16 8:51 AM) Eosinophils # 0.6 K/CMM 0.7 K/CMM [0.0-0.5 K/CMM] *HI* *HI* (02/12/16 6:26 AM) (02/11/16 8:51 AM) Basophils # [0.0-0.2 0.1 K/CMM K/CMM] (02/12/16 6:26 AM) Immunizations No data available for this section Procedures Procedure Date Related Diagnosis Body Site Cholecystectomy Cholecystectomy Cholecystectomy Hysterectomy Hysterectomy Lithotripsy Lithotripsy of kidney Tubal ligation Social History Social History Type Response Substance Abuse Use: None. Alcohol Past, Type Beer. Smoking Status Former smoker; Exposure to Tobacco Smoke None; Cigarette Smoking Last 365 Days No; Reg Smoking Cessation Counseling No Assessment and Plan No data available for this section
--- OUTSIDE RECORDS SUMMARY | 2018-11-10 00:12 | XMS REPORT | Summary of Care ---
Author Author [facility] Organization [facility] Address Unknown Phone Unavailable Encounter BELIA Johnson(YANY) [id number] Date(s): 05/11/15 - 05/11/15 [facility] [address] [place] [address]- Discharge Diagnosis: Pelvic and perineal pain Discharge Diagnosis: Other ovarian cysts Discharge Disposition: Home Attending Physician: Myah Pool DO Vital Signs Most recent to 1 2 oldest [Reference Range]: Height 162.56 cm (05/11/15 7:46 AM) Temperature Oral 98.1 DegF 98.0 DegF [96.4-99.1 DegF] (05/11/15 12:00 PM) (05/11/15 7:46 AM) Blood Pressure 132/78 mmHg 126/84 mmHg [90-140/60-90 mmHg] (05/11/15 12:00 PM) (05/11/15 7:46 AM) Respiratory Rate 18 BRMIN 18 BRMIN [14-20 BRMIN] (05/11/15 12:00 PM) (05/11/15 7:46 AM) Peripheral Pulse 80 bpm 73 bpm Rate [60-100 bpm] (05/11/15 12:00 PM) (05/11/15 7:46 AM) Weight 81.818 kg (05/11/15 7:46 AM) Body Mass Index 30.96 m2 (05/11/15 7:46 AM) Problem List Condition Effective Dates Status Health Status Informant Kidney Active stone(Confirmed) Ovarian Resolved cyst(Confirmed) Vaginal bleeding Active problem(Confirmed) Vaginal Active delivery(Confirmed) Allergies, Adverse Reactions, Alerts Substance Reaction Severity Status NKDA NKDA - No known drug allergies Active Medications ketOROLAC 30 mg, Route: IVP, Drug form: INJ, ONCE, Dosing Weight 81.818, kg, Priority: STA T, Start date: 05/11/15 9:44:00, Stop date: 05/11/15 9:44:00 Start Date: 05/11/15 Stop Date: 05/11/15 Status: Completed morphine Sulfate 4 mg, Route: IVP, ONCE, Dosing Weight 81.818, kg, Start date: 05/11/15 8:02:00, Stop date: 05/11/15 8:02:00 Start Date: 05/11/15 Stop Date: 05/11/15 Status: Completed [place] 5/325 oral tablet 1 tab, Route: PO, Drug Form: TAB, Dosing Weight 81.818, kg, ONCE, STAT, Start da te: 05/11/15 9:14:00, Stop date: 05/11/15 9:14:00 Start Date: 05/11/15 Stop Date: 05/11/15 Status: Completed [place] 7.5/325 oral tablet 1 tab, Route: PO, Dosing Weight 81.818, kg, ONCE, Start date: 05/11/15 7:58:00, Stop date: 05/11/15 7:58:00 Start Date: 05/11/15 Stop Date: 05/11/15 Status: Discontinued Zofran 4 mg, Route: IVP, ONCE, Dosing Weight 81.818, kg, Start date: 05/11/15 8:02:00, Stop date: 05/11/15 8:02:00 Start Date: 05/11/15 Stop Date: 05/11/15 Status: Completed Results ELECTROLYTES Most recent to 1 oldest [Reference Range]: Sodium Lvl [135-145 138 mEq/L mEq/L] (05/11/15 8:10 AM) Potassium Lvl 4.1 mEq/L [3.5-5.1 mEq/L] (05/11/15 8:10 AM) Chloride Lvl [95-109 106 mEq/L mEq/L] (05/11/15 8:10 AM) CO2 [24-32 mEq/L] 25 mEq/L (05/11/15 8:10 AM) AGAP [10.0-20.0 11.1 mEq/L mEq/L] (05/11/15 8:10 AM) CHEM PANEL Most recent to 1 oldest [Reference Range]: Creatinine Lvl 0.86 mg/dL [0.50-1.40 mg/dL] (05/11/15 8:10 AM) eGFR 87 mL/min/1.73m2 1 *NA* (05/11/15 8:10 AM) BUN [7-22 mg/dL] 12 mg/dL (05/11/15 8:10 AM) Glucose Lvl [70-99 97 mg/dL mg/dL] (05/11/15 8:10 AM) Calcium Lvl 8.5 mg/dL [8.5-10.5 mg/dL] (05/11/15 8:10 AM) 1Result Comment: The eGFR is calculated [...] oldest [Reference Range]: UA Turbidity [Clear] Clear (05/11/15 8:13 AM) UA Color Ltyellow *NA* (05/11/15 8:13 AM) UA pH [5.0-8.0] 6.0 (05/11/15 8:13 AM) UA Spec Grav 1.013 [<=1.030] (05/11/15 8:13 AM) UA Glucose [Negative Negative mg/dL mg/dL] *NA* (05/11/15 8:13 AM) UA Blood [Negative] Negative (05/11/15 8:13 AM) UA Ketones [Negative Negative mg/dL mg/dL] *NA* (05/11/15 8:13 AM) UA Protein [Negative Negative mg/dL mg/dL] (05/11/15 8:13 AM) UA Urobilinogen <=1.0 mg/dL [0.1-1.0 mg/dL] *NA* (05/11/15 8:13 AM) UA Bili [Negative] Negative *NA* (05/11/15 8:13 AM) UA Leuk Est Negative [Negative] (05/11/15 8:13 AM) UA Nitrite Negative [Negative] (05/11/15 8:13 AM) UA WBC [0-5 /HPF] 4 /HPF (05/11/15 8:13 AM) UA RBC [0-2 /HPF] 3 /HPF *HI* (05/11/15 8:13 AM) UA Sq Epi [Few /LPF] Occasional /LPF *NA* (05/11/15 8:13 AM) UA Hyal Cast [0-2 1 /LPF /LPF] (05/11/15 8:13 AM) UA Mucus [None Seen Few /LPF /LPF] *NA* (05/11/15 8:13 AM) HEMATOLOGY Most recent to 1 oldest [Reference Range]: WBC [3.7-10.4 K/CMM] 4.4 K/CMM (05/11/15 8:10 AM) RBC [4.20-5.40 4.45 M/CMM M/CMM] (05/11/15 8:10 AM) Hgb [12.0-16.0 g/dL] 12.6 g/dL (05/11/15 8:10 AM) Hct [36.0-48.0 %] 39.2 % (05/11/15 8:10 AM) MCV [80.0-98.0 fL] 88.1 fL (05/11/15 8:10 AM) MCH [27.0-31.0 pg] 28.3 pg (05/11/15 8:10 AM) MCHC [32.0-36.0 32.2 g/dL g/dL] (05/11/15 8:10 AM) RDW [11.5-14.5 %] 14.0 % (05/11/15 8:10 AM) Platelet [133-450 171 K/CMM K/CMM] (05/11/15 8:10 AM) MPV [7.4-10.4 fL] 8.2 fL (05/11/15 8:10 AM) Segs [45.0-75.0 %] 64.5 % (05/11/15 8:10 AM) Lymphocytes 22.1 % [20.0-40.0 %] (05/11/15 8:10 AM) Monocytes [2.0-12.0 10.6 % %] (05/11/15 8:10 AM) Eosinophils [0.0-4.0 2.0 % %] (05/11/15 8:10 AM) Basophils [0.0-1.0 0.8 % %] (05/11/15 8:10 AM) Segs-Bands # 2.9 K/CMM [1.5-8.1 K/CMM] (05/11/15 8:10 AM) Lymphocytes # 1.0 K/CMM [1.0-5.5 K/CMM] (05/11/15 8:10 AM) Monocytes # [0.0-0.8 0.5 K/CMM K/CMM] (05/11/15 8:10 AM) Eosinophils # 0.1 K/CMM [0.0-0.5 K/CMM] (05/11/15 8:10 AM) Immunizations No data available for this [...]
--- OUTSIDE RECORDS SUMMARY | 2018-11-10 00:12 | XMS REPORT | Summary of Care ---
Author Author [facility] Organization [facility] Address Unknown Phone Unavailable Encounter BELIA Johnson(YANY) [id number] Date(s): 02/01/16 - 02/01/16 [facility] [address] [place] [address]- Discharge Diagnosis: Abdominal pain Discharge Disposition: Home or Self Care Attending Physician: Kirby Yuan MD Vital Signs Most recent to 1 2 oldest [Reference Range]: Height 162.56 cm (02/01/16 11:12 AM) Temperature Oral 98.7 DegF 98.2 DegF [96.4-99.1 DegF] (02/01/16 2:32 PM) (02/01/16 11:12 AM) Blood Pressure 116/62 mmHg 129/79 mmHg [90-140/60-90 mmHg] (02/01/16 2:32 PM) (02/01/16 11:12 AM) Respiratory Rate 18 BRMIN 18 BRMIN [14-20 BRMIN] (02/01/16 2:32 PM) (02/01/16 11:12 AM) Peripheral Pulse 61 bpm 72 bpm Rate [60-100 bpm] (02/01/16 2:32 PM) (02/01/16 11:12 AM) Weight 81.818 kg (02/01/16 11:12 AM) Body Mass Index 30.96 m2 (02/01/16 11:12 AM) Problem List Condition Effective Dates Status Health Status Informant Kidney Active stone(Confirmed) Ovarian Resolved cyst(Confirmed) Vaginal bleeding Active problem(Confirmed) Vaginal Active delivery(Confirmed) Allergies, Adverse Reactions, Alerts Substance Reaction Severity Status NKDA NKDA - No known drug allergies Active Medications Dilaudid 0.5 mg, Route: IVP, ONCE, Dosing Weight 81.818, kg, Priority: STAT, Start date: 02/01/16 14:04:00 CDT, Stop date: 02/01/16 14:04:00 CDT Start Date: 02/01/16 Stop Date: 02/01/16 Status: Completed Dilaudid 1 mg, Route: IVP, ONCE, Dosing Weight 81.818, kg, Priority: STAT, Start date: 13:12:00 CDT, Stop date: 02/01/16 13:12:00 CDT Start Date: 02/01/16 Stop Date: 02/01/16 Status: Completed ketOROLAC 15 mg, Route: IVP, Drug form: INJ, ONCE, Dosing Weight 81.818, kg, Priority: STA T, Start date: 02/01/16 13:13:00 CDT, Stop date: 02/01/16 13:13:00 CDT Start Date: 02/01/16 Stop Date: 02/01/16 Status: Completed morphine Sulfate 4 mg, Route: IVP, ONCE, Dosing Weight 81.818, kg, Priority: STAT, Start date: 12:17:00 CDT, Stop date: 02/01/16 12:17:00 CDT Start Date: 02/01/16 Stop Date: 02/01/16 Status: Completed Saline Flush 0.9% 10 mL, Route: IVP, Drug Form: INJ, Dosing Weight 81.818, kg, PRN, PRN Line Flush , Start date: 02/01/16 11:33:00 CDT, Duration: 30 day, Stop date: 03/02/16 11:32 :00 CDT Notes: (Same as: BD Posiflush) Start Date: 02/01/16 Stop Date: 02/01/16 Status: Discontinued Sodium Chloride 0.9% (Bolus) IV 1,000 mL, 1,000 ml/hr, Infuse Over: 1 Hour, Route: IV, ONCE, Priority: STAT, Dos ing Weight 81.818 kg, Start date: 02/01/16 12:17:00 CDT, Duration: 1 doses or ti mes, Stop date: 02/01/16 12:17:00 CDT Start Date: 02/01/16 Stop Date: 02/01/16 Status: Completed Zofran 4 mg, Route: IVP, Drug form: INJ, ONCE, Dosing Weight 81.818, kg, Priority: STAT , Start date: 02/01/16 12:17:00 CDT, Stop date: 02/01/16 12:17:00 CDT Start Date: 02/01/16 Stop Date: 02/01/16 Status: Completed Results ELECTROLYTES Most recent to 1 oldest [Reference Range]: Sodium Lvl [135-145 141 mEq/L mEq/L] (02/01/16 12:05 PM) Potassium Lvl 3.6 mEq/L [3.5-5.1 mEq/L] (02/01/16 12:05 PM) Chloride Lvl [95-109 107 mEq/L mEq/L] (02/01/16 12:05 PM) CO2 [24-32 mEq/L] 28 mEq/L (02/01/16 12:05 PM) AGAP [10.0-20.0 9.6 mEq/L mEq/L] *LOW* (02/01/16 12:05 PM) CHEM PANEL Most recent to 1 oldest [Reference Range]: Creatinine Lvl 0.83 mg/dL [0.50-1.40 mg/dL] (02/01/16 12:05 PM) eGFR 90 mL/min/1.73m2 1 *NA* (02/01/16 12:05 PM) BUN [7-22 mg/dL] 13 mg/dL (02/01/16 12:05 PM) Glucose Lvl [70-99 84 mg/dL mg/dL] (02/01/16 12:05 PM) Calcium Lvl 8.5 mg/dL [8.5-10.5 mg/dL] (02/01/16 12:05 PM) 1Result Comment: The eGFR is calculated [...] be mul tiplied by the estimated BMI. DRUG SCREEN Most recent to 1 oldest [Reference Range]: U Amph Scr Negative [Negative] *NA* (02/01/16 12:05 PM) U Elaine Scr Negative [Negative] *NA* (02/01/16 12:05 PM) U Benzodia Scr Negative [Negative] *NA* (02/01/16 12:05 PM) U Cocaine Scr Negative [Negative] *NA* (02/01/16 12:05 PM) U Opiate Scr Positive [Negative] *ABN* (02/01/16 12:05 PM) U Phencyc Scr Negative [Negative] *NA* (02/01/16 12:05 PM) U Cannab Scr Negative [Negative] *NA* (02/01/16 12:05 PM) UDS Note See Note (02/01/16 12:05 PM) URINE CHEM Most recent to 1 oldest [Reference Range]: U Preg [Negative] Negative (02/01/16 12:05 PM) URINE AND STOOL Most recent to 1 oldest [Reference Range]: UA Turbidity [Clear] Marked *ABN* (02/01/16 12:05 PM) UA Color Red *NA* (02/01/16 12:05 PM) UA pH [5.0-8.0] 6.0 (02/01/16 12:05 PM) UA Spec Grav 1.016 [<=1.030] (02/01/16 12:05 PM) UA Glucose [Negative Negative mg/dL mg/dL] *NA* (02/01/16 12:05 PM) UA Blood [Negative] Large *ABN* (02/01/16 12:05 PM) UA Ketones [Negative Negative mg/dL mg/dL] *NA* (02/01/16 12:05 PM) UA Protein [Negative 100 mg/dL mg/dL] *ABN* (02/01/16 12:05 PM) UA Urobilinogen <=1.0 mg/dL [0.1-1.0 mg/dL] *NA* (02/01/16 12:05 PM) UA Bili [Negative] Negative *NA* (02/01/16 12:05 PM) UA Leuk Est Moderate [Negative] *ABN* (02/01/16 12:05 PM) UA Nitrite Negative [Negative] (02/01/16 12:05 PM) UA WBC [0-5 /HPF] 128 /HPF *HI* (02/01/16 12:05 PM) UA RBC [0-2 /HPF] >182 /HPF *HI* (02/01/16 12:05 PM) UA Sq Epi [Few /LPF] Few /LPF *NA* (02/01/16 12:05 PM) HEMATOLOGY Most recent to 1 oldest [Reference Range]: WBC [3.7-10.4 K/CMM] 9.9 K/CMM (02/01/16 12:05 PM) RBC [4.20-5.40 4.42 M/CMM M/CMM] (02/01/16 12:05 PM) Hgb [12.0-16.0 g/dL] 12.5 g/dL (02/01/16:05 PM) Hct [36.0-48.0 %] 37.1 % (02/01/16 12:05 PM) MCV [80.0-98.0 fL] 83.8 fL (02/01/16 12:05 PM) MCH [27.0-31.0 pg] 28.3 pg (02/01/16 12:05 PM) MCHC [32.0-36.0 33.8 g/dL g/dL] (02/01/16 12:05 PM) RDW [11.5-14.5 %] 14.4 % (02/01/16 12:05 PM) Platelet [133-450 264 K/CMM K/CMM] (02/01/16 12:05 PM) MPV [7.4-10.4 fL] 6.9 fL *LOW* (02/01/16 12:05 PM) Segs [45.0-75.0 %] 69.1 % (02/01/16 12:05 PM) Lymphocytes 23.1 % [20.0-40.0 %] (02/01/16 12:05 PM) Monocytes [2.0-12.0 4.8 % %] (02/01/16 12:05 PM) Eosinophils [0.0-4.0 1.7 % %] (02/01/16 12:05 PM) Basophils [0.0-1.0 1.3 % %] *HI* (02/01/16 12:05 PM) Segs-Bands # 6.8 K/CMM [1.5-8.1 K/CMM] (02/01/16 12:05 PM) Lymphocytes # 2.3 K/CMM [1.0-5.5 K/CMM] (02/01/16 12:05 PM) Monocytes # [0.0-0.8 0.5 K/CMM K/CMM] (02/01/16 12:05 PM) Eosinophils # 0.2 K/CMM [0.0-0.5 K/CMM] (02/01/16 12:05 PM) Basophils # [0.0-0.2 0.1 K/CMM K/CMM] (02/01/16 12:05 PM) Immunizations No data available for this [...]
--- OUTSIDE RECORDS SUMMARY | 2018-11-10 00:12 | XMS REPORT | Summary of Care ---
Author Author [facility] Organization [facility] Address Unknown Phone Unavailable Encounter BELIA Johnson(YANY) [id number] Date(s): 01/25/16 - 01/27/16 [facility] [address] [place] [address]- [phone] Discharge Disposition: Home or Self Care Attending Physician: Flavio Wynne MD Admitting Physician: Flavio Wynne MD Vital Signs 1 2 3 Most recent to oldest [Reference Range]: 162.56 cm (01/26/16 12:58 AM) 162.56 cm (01/25/16 5:02 PM) Height 97.9 DegF (01/27/16 12:06 PM) 98.5 DegF (01/27/16 7:04 AM) 98.4 DegF (01/27/16 4:32 AM) Temperature Oral [96.4-99.1 DegF] 127/82 mmHg (01/27/16 12:06 PM) 107/70 mmHg (01/27/16 7:04 AM) 103/66 mmHg (01/27/16 4:32 AM) Blood Pressure [90-140/60-90 mmHg] 18 BRMIN (01/27/16 12:06 PM) 18 BRMIN (01/27/16 8:50 AM) 18 BRMIN (01/27/16 7:04 AM) Respiratory Rate [14-20 BRMIN] 67 bpm (01/27/16 12:06 PM) 69 bpm (01/27/16 7:04 AM) 73 bpm (01/27/16 4:32 AM) Peripheral Pulse Rate [60-100 bpm] 90.17 kg (01/26/16 12:58 AM) 81.818 kg (01/25/16 5:02 PM) Weight 34.12 m2 (01/26/16 12:58 AM) 30.96 m2 (01/25/16 5:02 PM) Body Mass Index Problem List Condition Effective Dates Status Health Status Informant Kidney Active stone(Confirmed) Ovarian Resolved cyst(Confirmed) Vaginal bleeding Active problem(Confirmed) Vaginal Active delivery(Confirmed) Allergies, Adverse Reactions, Alerts Substance Reaction Severity Status NKDA NKDA - No known drug allergies Active Medications acetaminophen 650 mg, 2 tab, Route: PO, Drug form: TAB, Q4H, Dosing Weight 81.818, kg, PRN Carina n 1-3/Temp > 100.4 F, Start date: 01/26/16 0:05:00 CDT, Duration: 30 day, Stop date: 02/25/16 0:04:00 CDT Notes: Do not exceed 4 gm/day. (Same as: Tylenol) Start Date: 01/26/16 Stop Date: 01/27/16 Status: Discontinued ANES acetaminophen 1,000 mg, Route: PO, Drug form: TAB, ONCE, Dosing Weight 90.17, kg, PRN Pain Sco re 1-3, Start date: 01/26/16 19:14:00 CDT, Duration: 1 doses or times, Stop date : Limited # of times Start Date: 01/26/16 Stop Date: 01/26/16 Status: Discontinued ANES fentaNYL 25 microgram, Route: IVP, Q5Min, Dosing Weight 90.17, kg, PRN Pain Score 4-6, St art date: 01/26/16 19:14:00 CDT, Duration: 4 doses or times, Stop date: Limited # of times Start Date: 01/26/16 Stop Date: 01/26/16 Status: Completed ANES flumazenil 0.2 mg, Route: IVP, PRN, Dosing Weight 90.17, kg, PRN Benzodiazepine Reversal, I nitial dose, Start date: 01/26/16 19:14:00 CDT, Duration: 30 day, Stop date: 19:13:00 CDT Start Date: 01/26/16 Stop Date: 01/26/16 Status: Discontinued ANES HYDROmorphone 0.5 mg, Route: IVP, Q5Min, Dosing Weight 90.17, kg, PRN Pain Score 7-10, Start d ate: 01/26/16 19:14:00 CDT, Duration: 4 doses or times, Stop date: Limited # of times Start Date: 01/26/16 Stop Date: 01/26/16 Status: Discontinued ANES naloxone 0.4 mg, Route: IVP, Q2MIN, Dosing Weight 90.17, kg, PRN Narcotic Reversal, Start date: 01/26/16 19:14:00 CDT, Duration: 8 doses or times, Stop date: Limited # of times Start Date: 01/26/16 Stop Date: 01/26/16 Status: Discontinued ANES ondansetron 4 mg, Route: IVP, ONCE, Dosing Weight 90.17, kg, PRN Nausea & Vomiting, Start date: 01/26/16 19:14:00 CDT Start Date: 01/26/16 Stop Date: 01/26/16 Status: Completed ANES promethazine 6.25 mg, Route: IVPB, ONCE, Dosing Weight 90.17, kg, PRN Nausea & Vomiting, Start date: 01/26/16 19:14:00 CDT Start Date: 01/26/16 Stop Date: 01/26/16 Status: Discontinued cefTRIAXone + sodium chloride 0.9% INJ 100 mL 1 gm, Route: IVPB, Q24H, Dosing Weight 81.818, kg, Priority: STAT, Start date: 0 01/26/16 0:05:00 CDT, Duration: 30 day, Stop date: 02/23/16 22:00:00 CDT Notes: (Same As: Rocephin).Use with 100 mL NS and infuse over 30 min MEDICA TION WASTE Product Size: 1000 mgProduct Wasted: ___ mg Start Date: 01/26/16 Stop Date: 01/27/16 Status: Discontinued Cipro 500 mg oral tablet 500 mg=1 tab, PO, Q12H, X 7 day, # 14 tab, 0 Refill(s) Start Date: 01/27/16 Stop Date: 02/03/16 Status: Ordered ciprofloxacin (ANES) Route: IV, Drug form: INJ, ONCE, Stop date: 01/26/16 19:07:00 CDT Start Date: 01/26/16 Stop Date: 01/26/16 Status: Completed Ditropan 5 mg, 1 tab, Route: PO, Drug form: TAB, TID, Dosing Weight 90.17, kg, PRN Bladde r Spasm, Start date: 01/26/16 18:51:00 CDT, Duration: 30 day, Stop date: 6 18:50:00 CDT Notes: Same as: Ditropan) Start Date: 01/26/16 Stop Date: 01/27/16 Status: Discontinued docusate 100 mg, 1 cap, Route: PO, Drug form: CAP, BID, Dosing Weight 81.818, kg, PRN Con stipation, Start date: 01/26/16 0:05:00 CDT, Duration: 30 day, Stop date: 0:04:00 CDT Notes: (Same as: Colace) (Do Not Crush) Start Date: 01/26/16 Stop Date: 01/27/16 Status: Discontinued docusate sodium 100 mg oral capsule 100 mg=1 cap, PO, BID, # 60 cap, 0 Refill(s) Start Date: 01/27/16 Stop Date: 02/26/16 Status: Ordered fentaNYL (ANES) Route: IV, Drug form: INJ, ONCE, Stop date: 01/26/16 19:07:00 CDT Start Date: 01/26/16 Stop Date: 01/26/16 Status: Completed GoLYTELY 4,000 ml, Route: PO, Drug Form: PDR/REC, Dosing Weight 90.17, kg, ONCE, Start da te: 01/27/16 12:00:00 CDT, Duration: 1 doses or times, Stop date: 01/27/16 12:00 :00 CDT Notes: (polyethylene glycol electrolyte solution 4 Liter bottle) (Same as: Gol ytely, Colyte) Start Date: 01/27/16 Stop Date: 01/27/16 Status: Completed hydromorphone 1 mg, 1 mL, Route: IVP, Drug form: INJ, Q4H, Dosing Weight 90.17, kg, PRN Pain S core 7-10, Start date: 01/26/16 1:25:00 CDT, Duration: 30 day, Stop date: 1:24:00 CDT Start Date: 01/26/16 Stop Date: 01/27/16 Status: Discontinued ketOROLAC 30 mg/mL injectable solution 30 mg, 1 mL, Route: IV, Drug form: INJ, ONCE, Dosing Weight 81.818, kg, Start da te: 01/25/16 18:45:00 CDT, Stop date: 01/25/16 18:45:00 CDT Notes: (Same as:Toradol) IV bolus must be given >15 seconds. Give IM administration slowly and deeply into the muscle.Not for use > 4 days MEDICATION WASTE Product Size: 30 mgProduct Wasted: ___ mg Start Date: 01/25/16 Stop Date: 01/25/16 Status: Completed lidocaine (ANES) Route: IV, Drug form: INJ, ONCE, Stop date: 01/26/16 19:07:00 CDT Start Date: 01/26/16 Stop Date: 01/26/16 Status: Completed LR 1000 mL INJ (ANES) Route: IV, Total Volume: 1,000, Start date: 01/26/16 18:16:00 CDT, Stop date: 19:16:00 CDT Start Date: 01/26/16 Stop Date: 01/26/16 Status: Completed morphine Sulfate 4 mg, 2 mL, Route: IVP, Drug form: INJ, Q4H, Dosing Weight 81.818, kg, PRN Pain Score 7-10, Start date: 01/26/16 0:05:00 CDT, Duration: 30 day, Stop date: 02/24 0:04:00 CDT Notes: (Same as:MORPhine Sulfate) Start Date: 01/26/16 Stop Date: 01/26/16 Status: Discontinued morphine Sulfate 4 mg, 2 mL, Route: IVP, Drug form: INJ, ONCE, Dosing Weight 81.818, kg, Start da te: 01/25/16 19:39:00 CDT, Stop date: 01/25/16 19:39:00 CDT Notes: (Same as:MORPhine Sulfate) Start Date: 01/25/16 Stop Date: 01/25/16 Status: Completed NS (Bolus) IV 1,000 mL, 1,000 ml/hr, Infuse Over: 1 hr, Route: IV, 1,000, Drug form: INJ, ONCE , Priority: STAT, Dosing Weight 81.818 kg, Start date: 01/25/16 19:39:00 CDT, Du ration: 1 doses or times, Stop date: 01/25/16 19:39:00 CDT Start Date: 01/25/16 Stop Date: 01/25/16 Status: Completed ondansetron 4 mg, 2 mL, Route: IVP, Drug form: INJ, Q6H, Dosing Weight 81.818, kg, PRN Nause a & Vomiting, Start date: 01/26/16 0:05:00 CDT, Duration: 30 day, Stop date: 02/25/16 0:04:00 CDT Notes: (Same as: Kimber) MEDICATION WASTE Product Size: 4 mgProduct Was luisito: ___ mg Start Date: 01/26/16 Stop Date: 01/27/16 Status: Discontinued ondansetron (ANES) Route: IV, Drug form: INJ, ONCE, Stop date: 01/26/16 19:07:00 CDT Start Date: 01/26/16 Stop Date: 01/26/16 Status: Completed oxybutynin 5 mg oral tablet 5 mg=1 tab, PO, TID, PRN Bladder Spasm, # 30 tab, 0 Refill(s) Start Date: 01/27/16 Stop Date: 02/06/16 Status: Ordered propofol (ANES) Route: IV, Drug form: INJ, ONCE, Stop date: 01/26/16 19:07:00 CDT Start Date: 01/26/16 Stop Date: 01/26/16 Status: Completed Pyridium 200 mg, 2 tab, Route: PO, Drug form: TAB, TID-After Meals, Dosing Weight 90.17, kg, Start date: 01/27/16 8:30:00 CDT, Duration: 2 day, Stop date: 01/28/16 17:30 :00 CDT Notes: Give with meals.(Same as: Pyridium) Start Date: 01/27/16 Stop Date: 01/27/16 Status: Discontinued Rocephin + sodium chloride 0.9% INJ 100 mL 1 gm, Route: IVPB, ONCE, Dosing Weight 81.818, kg, Priority: STAT, Start date: 0 01/25/16 21:36:00 CDT, Stop date: 01/25/16 21:36:00 CDT Notes: (Same As: Rocephin).Use with 100 mL NS and infuse over 30 min MEDICA TION WASTE Product Size: 1000 mgProduct Wasted: ___ mg Start Date: 01/25/16 Stop Date: 01/25/16 Status: Completed sodium chloride 0.9% 1000 ml INJ 1,000 mL 1,000 mL, Rate: 150 ml/hr, Infuse over: 6.7 hr, Route: IV, Dosing Weight 81.818 kg, Total Volume: 1,000, Start date: 01/26/16 0:05:00 CDT, Stop date: 02/25/16 0 :04:00 CDT Start Date: 01/26/16 Stop Date: 01/27/16 Status: Discontinued Tums 1,250 mg, 2.5 tab, Route: PO, Drug form: TAB, TID, Dosing Weight 90.17, kg, Star t date: 01/27/16 13:00:00 CDT, Duration: 30 day, Stop date: 02/26/16 9:00:00 CDT Notes: 500mg elemental qljqllp=1096pg calcium carbonate. Contains 500mg element al calcium. (Same As: OsCal 500) Start Date: 01/27/16 Stop Date: 01/27/16 Status: Discontinued Zofran 4 mg, 2 mL, Route: IVP, Drug form: INJ, ONCE, Dosing Weight 81.818, kg, Priority : STAT, Start date: 01/25/16 19:39:00 CDT, Stop date: 01/25/16 19:39:00 CDT Notes: (Same as: Zofran) MEDICATION WASTE Product Size: 4 mgProduct Was luisito: ___ mg Start Date: 01/25/16 Stop Date: 01/25/16 Status: Completed Results ELECTROLYTES Most recent to 1 2 oldest [Reference Range]: Sodium Lvl [135-145 142 mEq/L 140 mEq/L mEq/L] (01/26/16 5:44 AM) (01/25/16 7:24 PM) Potassium Lvl 3.6 mEq/L 3.3 mEq/L [3.5-5.1 mEq/L] (01/26/16 5:44 AM) *LOW* (01/25/16 7:24 PM) Chloride Lvl [95-109 110 mEq/L 108 mEq/L mEq/L] *HI* (01/25/16 7:24 PM) (01/26/16 5:44 AM) CO2 [24-32 mEq/L] 28 mEq/L 26 mEq/L (01/26/16 5:44 AM) (01/25/16 7:24 PM) AGAP [10.0-20.0 7.6 mEq/L 9.3 mEq/L mEq/L] *LOW* *LOW* (01/26/16 5:44 AM) (01/25/16 7:24 PM) CHEM PANEL Most recent to 1 2 oldest [Reference Range]: Creatinine Lvl 0.75 mg/dL 0.66 mg/dL [0.50-1.40 mg/dL] (01/26/16 5:44 AM) (01/25/16 7:24 PM) eGFR 102 mL/min/1.73m2 1 112 mL/min/1.73m2 2 *NA* *NA* (01/26/16 5:44 AM) (01/25/16 7:24 PM) BUN [7-22 mg/dL] 10 mg/dL 11 mg/dL (01/26/16 5:44 AM) (01/25/16 7:24 PM) B/C Ratio [6-25] 17 (01/25/16 7:24 PM) Glucose Lvl [70-99 80 mg/dL 78 mg/dL mg/dL] (01/26/16 5:44 AM) (01/25/16 7:24 PM) Total Protein 6.5 g/dL [6.4-8.4 g/dL] (01/25/16 7:24 PM) Albumin Lvl [3.5-5.0 3.4 g/dL g/dL] *LOW* (01/25/16 7:24 PM) Globulin [2.7-4.2 3.1 g/dL g/dL] (01/25/16 7:24 PM) A/G Ratio [0.7-1.6] 1.1 (01/25/16 7:24 PM) Calcium Lvl 7.4 mg/dL 8.0 mg/dL [8.5-10.5 mg/dL] *LOW* *LOW* (01/26/16 5:44 AM) (01/25/16 7:24 PM) ALT [0-65 unit/L] 73 unit/L *HI* (01/25/16 7:24 PM) AST [0-37 unit/L] 40 unit/L *HI* (01/25/16 7:24 PM) Alk Phos [39-136 68 unit/L unit/L] (01/25/16 7:24 PM) Bili Total [0.2-1.3 0.3 mg/dL mg/dL] (01/25/16 7:24 PM) Lipase Lvl [73-393 115 unit/L unit/L] (01/25/16 7:24 PM) 1Result Comment: The eGFR is calculated [...] BMI. URINE CHEM Most recent to 1 2 oldest [Reference Range]: U Preg [Negative] Negative (01/25/16 7:35 PM) URINE AND STOOL Most recent to 1 2 oldest [Reference Range]: UA Turbidity [Clear] Clear Slight (01/26/16 3:01 PM) *ABN* (01/25/16 7:35 PM) UA Color Ltyellow *NA* (01/26/16 3:01 PM) UA Color [Yellow] Yellow *NA* (01/25/16 7:35 PM) UA pH [5.0-8.0] 6.0 6.0 (01/26/16 3:01 PM) (01/25/16 7:35 PM) UA Spec Grav 1.012 1.010 [<=1.030] (01/26/16 3:01 PM) (01/25/16 7:35 PM) UA Glucose [Negative Negative mg/dL Negative mg/dL mg/dL] *NA* *NA* (01/26/16 3:01 PM) (01/25/16 7:35 PM) UA Blood [Negative] Small Moderate *ABN* *ABN* (01/26/16 3:01 PM) (01/25/16 7:35 PM) UA Ketones [Negative Negative mg/dL Negative mg/dL mg/dL] *NA* *NA* (01/26/16 3:01 PM) (01/25/16 7:35 PM) UA Protein [Negative Negative mg/dL Negative mg/dL mg/dL] (01/26/16 3:01 PM) (01/25/16 7:35 PM) UA Urobilinogen <=1.0 mg/dL <=1.0 mg/dL [0.1-1.0 mg/dL] *NA* *NA* (01/26/16 3:01 PM) (01/25/16 7:35 PM) UA Bili [Negative] Negative Negative *NA* *NA* (01/26/16 3:01 PM) (01/25/16 7:35 PM) UA Leuk Est Large Large [Negative] *ABN* *ABN* (01/26/16 3:01 PM) (01/25/16 7:35 PM) UA Nitrite Negative Positive [Negative] (01/26/16 3:01 PM) *ABN* (01/25/16 7:35 PM) UA WBC [0-5 /HPF] 28 /HPF 34 /HPF *HI* *HI* (01/26/16 3:01 PM) (01/25/16 7:35 PM) UA RBC [0-2 /HPF] 3 /HPF 6 /HPF *HI* *HI* (01/26/16 3:01 PM) (01/25/16 7:35 PM) UA Bacteria [None Occasional /HPF Many /HPF Seen /HPF] *NA* *ABN* (01/26/16 3:01 PM) (01/25/16 7:35 PM) UA Sq Epi [Few /LPF] Occasional /LPF Moderate /LPF *NA* *ABN* (01/26/16 3:01 PM) (01/25/16 7:35 PM) UA Mucus [None Seen Few /LPF Few /LPF /LPF] *NA* *NA* (01/26/16 3:01 PM) (01/25/16 7:35 PM) UA Trans Epi [<=0 10 /LPF /LPF] *HI* (01/26/16 3:01 PM) HEMATOLOGY Most recent to 1 2 oldest [Reference Range]: WBC [3.7-10.4 K/CMM] 8.1 K/CMM 6.1 K/CMM (01/26/16 5:44 AM) (01/25/16 7:24 PM) RBC [4.20-5.40 3.97 M/CMM 4.12 M/CMM M/CMM] *LOW* *LOW* (01/26/16 5:44 AM) (01/25/16 7:24 PM) Hgb [12.0-16.0 g/dL] 11.5 g/dL 11.9 g/dL *LOW* *LOW* (01/26/16 5:44 AM) (01/25/16 7:24 PM) Hct [36.0-48.0 %] 33.7 % 34.4 % *LOW* *LOW* (01/26/16 5:44 AM) (01/25/16 7:24 PM) MCV [80.0-98.0 fL] 84.8 fL 83.5 fL (01/26/16 5:44 AM) (01/25/16 7:24 PM) MCH [27.0-31.0 pg] 28.8 pg 28.9 pg (01/26/16 5:44 AM) (01/25/16 7:24 PM) MCHC [32.0-36.0 34.0 g/dL 34.6 g/dL g/dL] (01/26/16 5:44 AM) (01/25/16 7:24 PM) RDW [11.5-14.5 %] 14.2 % 14.8 % (01/26/16 5:44 AM) *HI* (01/25/16 7:24 PM) Platelet [133-450 204 K/CMM 229 K/CMM K/CMM] (01/26/16 5:44 AM) (01/25/16 7:24 PM) MPV [7.4-10.4 fL] 7.5 fL 7.4 fL (01/26/16 5:44 AM) (01/25/16 7:24 PM) Segs [45.0-75.0 %] 76.9 % 51.8 % *HI* (01/25/16 7:24 PM) (01/26/16 5:44 AM) Lymphocytes 14.0 % 36.9 % [20.0-40.0 %] *LOW* (01/25/16 7:24 PM) (01/26/16 5:44 AM) Monocytes [2.0-12.0 6.3 % 7.2 % %] (01/26/16 5:44 AM) (01/25/16 7:24 PM) Eosinophils [0.0-4.0 2.4 % 3.4 % %] (01/26/16 5:44 AM) (01/25/16 7:24 PM) Basophils [0.0-1.0 0.4 % 0.7 % %] (01/26/16 5:44 AM) (01/25/16 7:24 PM) Segs-Bands # 6.3 K/CMM 3.2 K/CMM [1.5-8.1 K/CMM] (01/26/16 5:44 AM) (01/25/16 7:24 PM) Lymphocytes # 1.1 K/CMM 2.2 K/CMM [1.0-5.5 K/CMM] (01/26/16 5:44 AM) (01/25/16 7:24 PM) Monocytes # [0.0-0.8 0.5 K/CMM 0.4 K/CMM K/CMM] (01/26/16 5:44 AM) (01/25/16 7:24 PM) Eosinophils # 0.2 K/CMM 0.2 K/CMM [0.0-0.5 K/CMM] (01/26/16 5:44 AM) (01/25/16 7:24 PM) Immunizations No data available for this [...] Plan Extracted from: Title: Clinical Document Author: Sebastian Riojas MD Date: 01/27/16 Urology Note Sebastian Riojas MD SUBJECTIVE: Attending: Flavio Wynnehone: Service: Internal Medicine Code status: Full Code [Ordered] Reason for Admission: URETEROLITHIASIS, UTI Working DRG: None Documented Isolation: None Documented Consulting Physicians: Tanesha Riojas MDOffice: MSO: [id number]: Urology Sebastian Riojas MDOffice: MSO: [id number]: Urology CHIEF COMPLAINT: Urological followup. HISTORY OF PRESENT ILLNESS: Hematuria: mild. Dysuria: mild. Fevers: none. Chills: none. Urological pains: none. Incontinence: no significant change. Still has not had a BM in 3 weeks (per pt). PAST MEDICAL AND SURGICAL HISTORY, SOCIAL HISTORY, FAMILY HISTORY: Unchanged from prior note. Allergies: NKDA(NKDA - No known drug allergies) Medications (13) Active Scheduled Meds (2): 01/26/16 cefTRIAXone + sodium chloride 0.9% INJ 100 mL 1 gm IVPB Q24H 200 ml/hr 01/27/16 phenazopyridine (Pyridium) 200 mg PO TID-After Meals Unscheduled Meds: None PRN Meds (5): 01/26/16 acetaminophen 650 mg PO Q4H 01/26/16 docusate 100 mg PO BID 01/26/16 hydromorphone 1 mg IVP Q4H 01/26/16 ondansetron 4 mg IVP Q6H 01/26/16 oxybutynin (Ditropan) 5 mg PO TID One Time Meds (5): (Completed) ciprofloxacin (ciprofloxacin (ANES)) IV ONCE (Completed) fentaNYL (fentaNYL (ANES)) IV ONCE (Completed) lidocaine (lidocaine (ANES)) IV ONCE (Completed) ondansetron (ondansetron (ANES)) IV ONCE (Completed) propofol (propofol (ANES)) IV ONCE Continuous Infusions (1): 01/26/16 sodium chloride 0.9% 1000 ml INJ 1,000 mL 1,000 mL 150 ml/hr REVIEW OF SYSTEMS IS CONSISTENT WITH THE HISTORY OF PRESENT ILLNESS AND PAST MEDICAL HISTORY. IT IS OTHERWISE NEGATIVE OR UNCHANGED FOR ALL OTHER SYSTEMS. OBJECTIVE: VitalsTmp(F)[id number] 01/26 08:50 1898 21% 01/26 07:0498.764362/680389--- 01/26 04:3298.340243/66--91--- 01/25 23:5098.707078/67--93--- 01/25 21:00 1896--- 24 Hr Tmax: 98.7F (37.06c) at 01/25 16:15Vital Signs are the last 5 in the past 48 hours. DateWt(kg)Wt(lb)Ht(cm)Ht(in)Method 01/25 90.17 198.61428.56 64.00Measured 01/24 (initial) 81.82 180.00Estimated . 64.00Stated I&ORecordInOutBal 08/2824hr Tot 601 0 601 4hr Tot 778 1 777 Lines, Tubes, and Drains: 01/25/2016 19:20 Peripheral Lines: Antecubital Right 20 gauge Over the needle catheter Constitutional exam: Well develped, well nourished, in no apparent distress. Abdominal exam: Soft, non-distended, non-tender, without costovertebral tenderness, kidneys are not palpable, without hepatosplenomegally. Reviewed most recent laboratory tests, radiology, and microbiology results. Urine culture is polymicrobial but sensitivities are still pending 24hr Labs 01/25 1501 UA ColorLtyellow UA TurbidityClear UA Spec Grav1.012 UA pH6.0 UA ProteinNegative UA GlucoseNegative UA KetonesNegative UA BiliNegative UA BloodSmall UA Urobilinogen<=1.0 UA NitriteNegative UA Leuk EstLarge UA RBC3 H UA WBC28 H UA BacteriaOccasional UA MucusFew UA Sq EpiOccasional UA Trans Epi10 H Labs (Last four charted values) WBC 8.1(JAN 25)6.1(JAN 24) Hgb L 11.5(JAN 25)L 11.9(JAN 24) Hct L 33.7(JAN 25)L 34.4(JAN 24) Plt 204(JAN 25)229(JAN 24) Na 142(JAN 25)140(JAN 24) K 3.6(JAN 25)L 3.3(JAN 24) CO2 28(JAN 25)26(JAN 24) Cl H 110(JAN 25)108(JAN 24) Cr 0.75(JAN 25)0.66(JAN 24) BUN 10(JAN 25)11(JAN 24) Glucose Random 80(JAN 25)78(JAN 24) Ca L 7.4(JAN 25)L 8.0(JAN 24) ASSESSMENT: 1. Right renal colic. 2. Gross hematuria. 3. Constipation. 4. Stress type urinary incontinence. 5. Hypocalcemia. 6. Anemia. 7. Obesity. 8. Recurrent urinary tract infections. 9. Right ureterolithiasis x 2. 10. Bilateral multiple nephrolithiasis. 11. Right hydroureteronephrosis. 12. Nausea and vomiting. According to the medical record that seems to have resolved at the present time. 13. Constipation 14. Indwelling right ureteral stent. PLAN: 1. I ordered for the nurses to strain the urine as this was not done by the emergency room. 2. I am still awaiting the final urine culture and sensitivity so that the patient may be discharged on the correct PO abx. 3. I will order Tums to treat the hypocalcemia. 4. I re-wrote my Rx due to my prior Rx was shredded by RN. 5. I ordered AM labs. 6. Once the urine culture sensitivities are final, then the patient may be safely discharged from standpoint. Extracted from: Title: Clinical Document Author: Flavio Wynne MD Date: 01/27/16 I[facility] Discharge Note [facility] Flavio Wynne MD SUBJECTIVE: Patient seen and examined, events reviewed Still without BM, but had stent placed yesterday by urology OBJECTIVE: Vitals and Temp: VitalsTmp(F)[id number] 01/26 07:0498.145129/168046--- 01/26 04:3298.908154/66--91--- 01/25 23:5098.714428/67--93--- 01/25 21:00 1896--- 01/25 20:2198.497755/76--98--- 24 Hr Tmax: 98.7F (37.06c) at 01/25 16:15Vital Signs are the last 5 in the past 48 hours. Input/Output RecordInOutBal 4hr Tot 778 1 777 2624hr Tot 1202 0 1202 Labs (Last four charted values) WBC 8.1(JAN 25)6.1(JAN 24) Hgb L 11.5(JAN 25)L 11.9(JAN 24) Hct L 33.7(JAN 25)L 34.4(JAN 24) Plt 204(JAN 25)229(JAN 24) Na 142(JAN 25)140(JAN 24) K 3.6(JAN 25)L 3.3(JAN 24) CO2 28(JAN 25)26(JAN 24) Cl H 110(JAN 25)108(JAN 24) Cr 0.75(JAN 25)0.66(JAN 24) BUN 10(JAN 25)11(JAN 24) Glucose Random 80(JAN 25)78(JAN 24) Ca L 7.4(JAN 25)L 8.0(JAN 24) MEDICATIONS Scheduled Meds (2):cefTRIAXone + sodium chloride 0.9% INJ 100 mL, phenazopyridine (Pyridium) Unscheduled Meds: None PRN Meds (5):acetaminophen, docusate, hydromorphone, ondansetron, oxybutynin (Ditropan) One Time Meds (6):(Completed) cefTRIAXone + sodium chloride 0.9% INJ 100 mL (Rocephin + sodium chloride 0.9% INJ 100 mL), (Completed) ciprofloxacin (ciprofloxacin (ANES)), (Completed) fentaNYL (fentaNYL (ANES)), (Completed) lidocaine (lidocaine (ANES)), (Completed) ondansetron (ondansetron (ANES)), (Completed) propofol (propofol (ANES)) Continuous Infusions (1):sodium chloride 0.9% 1000 ml INJ 1,000 mL ASSESSMENT & EXAM: GENERAL: In no apparent distress at this time. HEENT: EOMI. NECK: Supple. No jugular venous distention or bruits. CARDIOVASCULAR: Regular rate and rhythm, S1, S2 positive. LUNGS: Clear to auscultation bilateral. GASTROINTESTINAL: Soft, nontender, nondistended, positive bowel sounds. EXTREMITIES: No clubbing, cyanosis or edema. NEUROLOGICAL: Intact. No gross deficits noted. SKIN: no rashes noted. DIAGNOSES & PROBLEMS: 1. BILATERAL NEPHROLITHIASIS WITH OBSTRUCTION AND HYDRONEPHROSIS ON THE RIGHT 2. UTI 3. LEUKOCYTOSIS 4. SUBSTANCE ABUSE 5. CONSTIPATION PLAN & TREATMENT: Patient improved quicker than originally anticipated S/P cystoscopy and stent placement Instructed to follow up for removal Laxatives still not halping Trial of enema's Can DC home with stool softners DISCHARGE NOTE: Condition: improved Activity: as tolerated Diet: high fiber Follow up: pcp 1 week, urology as instructed Medications: see d/c mars DC time: [address] Riojas by Asked for patient to receive Rocephin prior to DC today Maik Wynne DC on both Augmentin and Cipro and follow up on cultures Flavio PITTS Patient requesting one more try to relieve constipation with go-lytely prior to DC today on Follow up Dr. Riojas for stent removal and surgical needs 01/27/2016 ESTEFANIA RN 13:21
--- OUTSIDE RECORDS SUMMARY | 2018-11-10 00:12 | XMS REPORT | Summary of Care ---
Author Author [facility] Organization [facility] Address Unknown Phone Unavailable Encounter BELIA Johnson(YANY) [id number] Date(s): 11/04/15 - 11/06/15 [facility] [address] [place] [address]- Discharge Disposition: Home Attending Physician: Kris Patel MD Admitting Physician: Kris Patel MD Vital Signs 1 2 3 Most recent to oldest [Reference Range]: 162.56 cm (11/04/15 3:00 PM) 162.56 cm (11/04/15 10:24 AM) Height 90.909 kg (11/05/15 5:59 AM) Current Weight 98.9 DegF (11/06/15 7:54 AM) 99.1 DegF (11/05/15 11:40 PM) 98.6 DegF (11/05/15 7:14 PM) Temperature Oral [96.4-99.1 DegF] 116/74 mmHg (11/06/15 7:54 AM) 119/78 mmHg (11/05/15 11:40 PM) 106/71 mmHg (11/05/15 7:14 PM) Blood Pressure [90-140/60-90 mmHg] 18 BRMIN (11/06/15 7:54 AM) 18 BRMIN (11/05/15 11:40 PM) 18 BRMIN (11/05/15 7:14 PM) Respiratory Rate [14-20 BRMIN] 80 bpm (11/06/15 7:54 AM) 72 bpm (11/05/15 11:40 PM) 70 bpm (11/05/15 7:14 PM) Peripheral Pulse Rate [60-100 bpm] 81.818 kg (11/04/15 3:00 PM) 81.818 kg (11/04/15 10:24 AM) Weight 30.96 m2 (11/04/15 3:00 PM) 30.96 m2 (11/04/15 10:24 AM) Body Mass Index Problem List Condition Effective Dates Status Health Status Informant Kidney Active stone(Confirmed) Ovarian Resolved cyst(Confirmed) Vaginal bleeding Active problem(Confirmed) Vaginal Active delivery(Confirmed) Allergies, Adverse Reactions, Alerts Substance Reaction Severity Status NKDA NKDA - No known drug allergies Active Medications acetaminophen 650 mg, 20.3 mL, Route: PO, Drug form: LIQ, Q4H, Dosing Weight 81.818, kg, PRN F or Temp > 100.4 F, Start date: 11/05/15 8:53:00 CDT, Duration: 30 day, Stop date: 12/05/15 8:52:00 CDT Start Date: 11/05/15 Stop Date: 11/06/15 Status: Discontinued atropine 0.5 mg, 5 mL, Route: IVP, Drug form: INJ, PRN, PRN Bradycardia, Start date: 10/14 15:05:00 CDT, Duration: 30 day, Stop date: 12/04/15 15:04:00 CDT Start Date: 11/04/15 Stop Date: 11/06/15 Status: Discontinued Cipro 500 mg oral tablet 500 mg=1 tab, PO, Q12H, X 10 day, # 20 tab, 0 Refill(s) Start Date: 11/06/15 Stop Date: 11/16/15 Status: Ordered Dilaudid 1 mg, Route: IVP, ONCE, Dosing Weight 81.818, kg, Priority: STAT, Start date: 13:30:00 CDT, Stop date: 11/04/15 13:30:00 CDT Start Date: 11/04/15 Stop Date: 11/04/15 Status: Completed Dilaudid 0.5 mg, 0.5 mL, Route: IVP, Drug form: INJ, ONCE, Dosing Weight 81.818, kg, Prio rity: STAT, Start date: 11/04/15 11:56:00 CDT, Stop date: 11/04/15 11:56:00 CDT Start Date: 11/04/15 Stop Date: 11/04/15 Status: Completed Dilaudid 0.5 mg, 0.5 mL, Route: IVP, Drug form: INJ, Q4H, Dosing Weight 81.818, kg, PRN P ain Score 7-10, Priority: STAT, Start date: 11/04/15 13:59:00 CDT, Duration: 30 day, Stop date: 12/04/15 13:58:00 CDT Start Date: 11/04/15 Stop Date: 11/04/15 Status: Discontinued Dilaudid 0.5 mg, Route: IVP, ONCE, Dosing Weight 81.818, kg, Priority: STAT, Start date: 11/04/15 13:01:00 CDT, Stop date: 11/04/15 13:01:00 CDT Start Date: 11/04/15 Stop Date: 11/04/15 Status: Completed gentamicin 80 mg, 100 mL, Route: IVPB, Drug form: INJ, ONCE, Dosing Weight 81.818, kg, Prio rity: STAT, Start date: 11/04/15 13:56:00 CDT, Stop date: 11/04/15 13:56:00 CDT Notes: TIME CRITICAL MEDICATION(Same as Garamycin) Start Date: 11/04/15 Stop Date: 11/04/15 Status: Completed Levaquin 750 mg, 150 mL, Route: IVPB, Drug form: SOLN, ONCE, Dosing Weight 81.818, kg, St art date: 11/04/15 13:57:00 CDT, Stop date: 11/04/15 13:57:00 CDT Notes: (Same as:Levaquin) Start Date: 11/04/15 Stop Date: 11/04/15 Status: Completed Levaquin 500 mg, 100 mL, Route: IVPB, Drug form: SOLN, [id number], Dosing Weight 81.818, kg, Start date: 11/05/15 15:00:00 CDT, Duration: 30 day, Stop date: 12/04/15 15:00: 00 CDT Notes: (Same as:Levaquin) Start Date: 11/05/15 Stop Date: 11/06/15 Status: Discontinued Maalox Advanced Regular Strength SUSP 30 mL, Route: PO, Drug Form: SUSP, Dosing Weight 81.818, kg, QID, PRN Heartburn, Start date: 11/05/15 17:19:00 CDT, Duration: 30 day, Stop date: 12/05/15 17:18: 00 CDT Notes: (aluminum hydroxide-magnesium hyd-simethicone 360-101-71xl/5ml 30 ml ud S US) Start Date: 11/05/15 Stop Date: 11/06/15 Status: Discontinued morphine Sulfate 4 mg, Route: IVP, ONCE, Dosing Weight 81.818, kg, Priority: STAT, Start date: 11:10:00 CDT, Stop date: 11/04/15 11:10:00 CDT Start Date: 11/04/15 Stop Date: 11/04/15 Status: Completed morphine Sulfate 3 mg, 1.5 mL, Route: IV, Drug form: INJ, Q3H, Dosing Weight 81.818, kg, PRN Pain Score 6-10, Start date: 11/04/15 17:45:00 CDT, Duration: 30 day, Stop date: 10/14 17:44:00 CDT Notes: (Same as:MORPhine Sulfate) Start Date: 11/04/15 Stop Date: 11/06/15 Status: Discontinued morphine Sulfate 2 mg, 1 mL, Route: IVP, Drug form: INJ, Q4H, Dosing Weight 81.818, kg, PRN Pain Score 7-10, Start date: 11/04/15 14:07:00 CDT, Duration: 30 day, Stop date: 10/14 14:06:00 CDT Notes: (Same as:MORPhine Sulfate) Start Date: 11/04/15 Stop Date: 11/04/15 Status: Discontinued Hunter 10/325 oral tablet 1 tab, Route: PO, Drug Form: TAB, Dosing Weight 81.818, kg, Q6H, PRN Pain Score 4-6, Start date: 11/05/15 14:24:00 CDT, Duration: 30 day, Stop date: 12/05/15 14 :23:00 CDT Notes: Do not exceed 4gm/day of acetaminophen. (Same as: Hunter 325/10) Start Date: 11/05/15 Stop Date: 11/06/15 Status: Discontinued NS (Bolus) IV 1,000 mL, 1,000 ml/hr, Infuse Over: 1 hr, Route: IV, 1,000, Drug form: INJ, ONCE , Priority: STAT, Dosing Weight 81.818 kg, Start date: 11/04/15 11:15:00 CDT, Du ration: 1 doses or times, Stop date: 11/04/15 11:15:00 CDT Start Date: 11/04/15 Stop Date: 11/04/15 Status: Completed NS 1,000 mL 1,000 mL, Rate: 175 ml/hr, Infuse over: 5.7 hr, Route: IV, Dosing Weight 81.818 kg, Total Volume: 1,000, Start date: 11/04/15 13:57:00 CDT, Duration: 30 day, St op date: 12/04/15 13:56:00 CDT Start Date: 11/04/15 Stop Date: 11/05/15 Status: Deleted ondansetron 4 mg, Route: IVP, ONCE, Dosing Weight 81.818, kg, Priority: STAT, Start date: 11:10:00 CDT, Stop date: 11/04/15 11:10:00 CDT Start Date: 11/04/15 Stop Date: 11/04/15 Status: Completed ondansetron 4 mg, 2 mL, Route: IVP, Drug form: INJ, Q6H, Dosing Weight 81.818, kg, PRN Nause a & Vomiting, Start date: 11/04/15 14:07:00 CDT, Duration: 30 day, Stop date: 12/04/15 14:06:00 CDT Notes: (Same as: Kimber) MEDICATION WASTE Product Size: 4 mgProduct Was luisito: ___ mg Start Date: 11/04/15 Stop Date: 11/06/15 Status: Discontinued Saline Flush 0.9% 10 mL, Route: IVP, Drug Form: INJ, Dosing Weight 81.818, kg, PRN, PRN Line Flush , Start date: 11/04/15 11:10:00 CDT, Duration: 30 day, Stop date: 12/04/15 11:09 :00 CDT Notes: (Same as: BD Posiflush) Start Date: 11/04/15 Stop Date: 11/04/15 Status: Discontinued Saline Flush 0.9% 10 ml, Route: IVP, Drug Form: INJ, Dosing Weight 81.818, kg, PRN, PRN Line Flush , Start date: 11/04/15 14:07:00 CDT, Duration: 30 day, Stop date: 12/04/15 14:06 :00 CDT Notes: (Same as: BD Posiflush) Start Date: 11/04/15 Stop Date: 11/06/15 Status: Discontinued Sodium Chloride 0.9% IV 1,000 mL 1,000 mL, Rate: 125 ml/hr, Infuse over: 8 hr, Route: IV, Dosing Weight 81.818 kg , Total Volume: 1,000, Start date: 11/04/15 14:07:00 CDT, Duration: 30 day, Stop date: 12/04/15 14:06:00 CDT Start Date: 11/04/15 Stop Date: 11/06/15 Status: Discontinued Sodium Chloride 0.9% IV 1000 mL 1,000 mL, Rate: 125 ml/hr, Infuse over: 8 hr, Route: IV, Dosing Weight 81.818 kg , Total Volume: 1,000, Priority: STAT, Start date: 11/04/15 11:10:00 CDT, Durati on: 1 doses or times, Stop date: 11/04/15 19:09:00 CDT Start Date: 11/04/15 Stop Date: 11/04/15 Status: Completed tamsulosin 0.4 mg, 1 cap, Route: PO, Drug form: CAP, Daily, Dosing Weight 81.818, kg, Start date: 11/05/15 9:00:00 CDT, Duration: 30 day, Stop date: 12/04/15 9:00:00 CDT Notes: (Same As: Flomax) "Do Not Crush" Start Date: 11/05/15 Stop Date: 11/06/15 Status: Discontinued tamsulosin 0.4 mg oral capsule 0.4 mg=1 cap, PO, Daily, # 30 cap, 0 Refill(s) Start Date: 11/06/15 Stop Date: 12/06/15 Status: Ordered Tylenol with Codeine #3 oral tablet 1 - 2 tab, PO, Q6H, PRN Pain, X 4 day, # 32 tab, 0 Refill(s) Start Date: 11/06/15 Stop Date: 11/10/15 Status: Ordered Results ELECTROLYTES 1 2 3 Most recent to oldest [Reference Range]: 140 mEq/L (11/05/15 5:49 AM) 135 mEq/L (11/04/15 11:13 AM) Sodium Lvl [135-145 mEq/L] 3.4 mEq/L *LOW* (11/05/15 5:49 AM) 3.6 mEq/L (11/04/15 11:13 AM) Potassium Lvl [3.5-5.1 mEq/L] 109 mEq/L (11/05/15 5:49 AM) 104 mEq/L (11/04/15 11:13 AM) Chloride Lvl [95-109 mEq/L] 23 mEq/L *LOW* (11/05/15 5:49 AM) 21 mEq/L *LOW* (11/04/15 11:13 AM) CO2 [24-32 mEq/L] 11.4 mEq/L (11/05/15 5:49 AM) 13.6 mEq/L (11/04/15 11:13 AM) AGAP [10.0-20.0 mEq/L] CHEM PANEL 1 2 3 Most recent to oldest [Reference Range]: 0.90 mg/dL (11/05/15 5:49 AM) 0.98 mg/dL (11/04/15 11:13 AM) Creatinine Lvl [0.50-1.40 mg/dL] 82 mL/min/1.73m2 1 *NA* (11/05/15 5:49 AM) 74 mL/min/1.73m2 2 *NA* (11/04/15 11:13 AM) eGFR 7 mg/dL (11/05/15 5:49 AM) 13 mg/dL (11/04/15 11:13 AM) BUN [7-22 mg/dL] 8 (11/05/15 5:49 AM) 13 (11/04/15 11:13 AM) B/C Ratio [6-25] 93 mg/dL (11/05/15 5:49 AM) 99 mg/dL (11/04/15 11:13 AM) Glucose Lvl [70-99 mg/dL] 5.4 g/dL *LOW* (11/05/15 5:49 AM) 6.9 g/dL (11/04/15 11:13 AM) Total Protein [6.4-8.4 g/dL] 2.8 g/dL *LOW* (11/05/15 5:49 AM) 3.4 g/dL *LOW* (11/04/15 11:13 AM) Albumin Lvl [3.5-5.0 g/dL] 2.6 g/dL (11/05/15 5:49 AM) 3.5 g/dL (11/04/15 11:13 AM) Globulin [2.0-4.0 g/dL] 1.1 (11/05/15 5:49 AM) 1.0 (11/04/15 11:13 AM) A/G Ratio [0.7-1.6] 8.1 mg/dL *LOW* (11/05/15 5:49 AM) 8.7 mg/dL (11/04/15 11:13 AM) Calcium Lvl [8.5-10.5 mg/dL] 2.2 mg/dL *LOW* (11/05/15 5:49 AM) Phosphorus [2.5-4.5 mg/dL] 1.8 mg/dL (11/05/15 5:49 AM) Magnesium Lvl [1.8-2.4 mg/dL] 96 unit/L *HI* (11/05/15 5:49 AM) 21 unit/L (11/04/15 11:13 AM) ALT [0-65 unit/L] 100 unit/L *HI* (11/05/15 5:49 AM) 16 unit/L (11/04/15 11:13 AM) AST [0-37 unit/L] 157 unit/L *HI* (11/05/15 5:49 AM) 88 unit/L (11/04/15 11:13 AM) Alk Phos [39-136 unit/L] 1.2 mg/dL (11/05/15 5:49 AM) 0.8 mg/dL (11/04/15 11:13 AM) Bili Total [0.2-1.3 mg/dL] 71 unit/L *LOW* (11/04/15 11:13 AM) Lipase Lvl [73-393 unit/L] 1Result Comment: The eGFR is calculated using [...] tiplied by the estimated BMI. CARDIAC ENZYMES 1 2 3 Most recent to oldest [Reference Range]: 45 unit/L (11/04/15 11:34 PM) 46 unit/L (11/04/15 4:51 PM) 42 unit/L (11/04/15 11:13 AM) Total CK [12-191 unit/L] <0.5 ng/mL (11/04/15 11:13 AM) CK MB [0.5-3.6 ng/mL] <1.2 (11/04/15 11:13 AM) CK MB Index [0.0-2.5] <0.02 ng/mL (11/04/15 11:34 PM) <0.02 ng/mL (11/04/15 4:51 PM) <0.02 ng/mL (11/04/15 11:13 AM) Troponin-I [0.00-0.40 ng/mL] DRUG SCREEN 1 2 3 Most recent to oldest [Reference Range]: Negative *NA* (11/04/15 1:06 PM) U Amph Scr [Negative] Negative *NA* (11/04/15 1:06 PM) U Elaine Scr [Negative] Negative *NA* (11/04/15 1:06 PM) U Benzodia Scr [Negative] Positive *ABN* (11/04/15 1:06 PM) U Cocaine Scr [Negative] Positive *ABN* (11/04/15 1:06 PM) U Opiate Scr [Negative] Negative *NA* (11/04/15 1:06 PM) U Phencyc Scr [Negative] Negative *NA* (11/04/15 1:06 PM) U Cannab Scr [Negative] See Note (11/04/15 1:06 PM) UDS Note URINE AND STOOL 1 2 3 Most recent to oldest [Reference Range]: Slight *ABN* (11/04/15 1:06 PM) UA Turbidity [Clear] Yellow *NA* (11/04/15 1:06 PM) UA Color [Yellow] 7.0 (11/04/15 1:06 PM) UA pH [5.0-8.0] 1.008 (11/04/15 1:06 PM) UA Spec Grav [<=1.030] Negative mg/dL *NA* (11/04/15 1:06 PM) UA Glucose [Negative mg/dL] Small *ABN* (11/04/15 1:06 PM) UA Blood [Negative] 80 mg/dL *ABN* (11/04/15 1:06 PM) UA Ketones [Negative mg/dL] 30 mg/dL *ABN* (11/04/15 1:06 PM) UA Protein [Negative mg/dL] <=1.0 mg/dL *NA* (11/04/15 1:06 PM) UA Urobilinogen [0.1-1.0 mg/dL] Negative *NA* (11/04/15 1:06 PM) UA Bili [Negative] Large *ABN* (11/04/15 1:06 PM) UA Leuk Est [Negative] Negative (11/04/15 1:06 PM) UA Nitrite [Negative] 145 /HPF *HI* (11/04/15 1:06 PM) UA WBC [0-5 /HPF] 5 /HPF *HI* (11/04/15 1:06 PM) UA RBC [0-2 /HPF] Moderate /HPF *ABN* (11/04/15 1:06 PM) UA Bacteria [None Seen /HPF] Few /LPF *NA* (11/04/15 1:06 PM) UA Sq Epi [Few /LPF] 2 /LPF (11/04/15 1:06 PM) UA Hyal Cast [0-2 /LPF] HEMATOLOGY 1 2 3 Most recent to oldest [Reference Range]: 9.6 K/CMM (11/05/15 5:49 AM) 20.8 K/CMM *HI* (11/04/15 11:13 AM) WBC [3.7-10.4 K/CMM] 4.46 M/CMM (11/05/15 5:49 AM) 4.68 M/CMM (11/04/15 11:13 AM) RBC [4.20-5.40 M/CMM] 12.6 g/dL (11/05/15 5:49 AM) 12.9 g/dL (11/04/15 11:13 AM) Hgb [12.0-16.0 g/dL] 38.1 % (11/05/15 5:49 AM) 39.5 % (11/04/15 11:13 AM) Hct [36.0-48.0 %] 85.4 fL (11/05/15 5:49 AM) 84.4 fL (11/04/15 11:13 AM) MCV [80.0-98.0 fL] 28.2 pg (11/05/15 5:49 AM) 27.7 pg (11/04/15 11:13 AM) MCH [27.0-31.0 pg] 33.0 g/dL (11/05/15 5:49 AM) 32.8 g/dL (11/04/15 11:13 AM) MCHC [32.0-36.0 g/dL] 14.3 % (11/05/15 5:49 AM) 14.4 % (11/04/15 11:13 AM) RDW [11.5-14.5 %] 135 K/CMM (11/05/15 5:49 AM) 164 K/CMM (11/04/15 11:13 AM) Platelet [133-450 K/CMM] 8.3 fL (11/05/15 5:49 AM) 8.3 fL (11/04/15 11:13 AM) MPV [7.4-10.4 fL] 89.9 % *HI* (11/05/15 5:49 AM) 91.7 % *HI* (11/04/15 11:13 AM) Segs [45.0-75.0 %] 5.3 % *LOW* (11/05/15 5:49 AM) 2.7 % *LOW* (11/04/15 11:13 AM) Lymphocytes [20.0-40.0 %] 4.3 % (11/05/15 5:49 AM) 4.8 % (11/04/15 11:13 AM) Monocytes [2.0-12.0 %] 0.3 % (11/05/15 5:49 AM) 0.5 % (11/04/15 11:13 AM) Eosinophils [0.0-4.0 %] 0.2 % (11/05/15 5:49 AM) 0.3 % (11/04/15 11:13 AM) Basophils [0.0-1.0 %] 8.7 K/CMM *HI* (11/05/15 5:49 AM) 19.1 K/CMM *HI* (11/04/15 11:13 AM) Segs-Bands # [1.5-8.1 K/CMM] 0.5 K/CMM *LOW* (11/05/15 5:49 AM) 0.6 K/CMM *LOW* (11/04/15 11:13 AM) Lymphocytes # [1.0-5.5 K/CMM] 0.4 K/CMM (11/05/15 5:49 AM) 1.0 K/CMM *HI* (11/04/15 11:13 AM) Monocytes # [0.0-0.8 K/CMM] 0.1 K/CMM (11/04/15 11:13 AM) Eosinophils # [0.0-0.5 K/CMM] 0.1 K/CMM (11/04/15 11:13 AM) Basophils # [0.0-0.2 K/CMM] 16.1 seconds *HI* (11/04/15 11:13 AM) PT [12.0-14.7 seconds] 1.26 *HI* (11/04/15 11:13 AM) INR [0.85-1.17] 1.38 ug/mL FEU *NA* (11/04/15 11:13 AM) D-Dimer 35.1 seconds (11/04/15 11:13 AM) PTT [22.9-35.8 seconds] Immunizations No data available for this section [...] Plan Extracted from: Title: Clinical Document Author: Kris Patel MD Date: 11/06/15 Discharge Summary Date of Admission: 11/04/2015 Date of Discharge: 11/06/2015 Admitting Diagnosis:Acute Pyelonephritis Final Diagnosis: Comment: Diagnosis: Abdominal pain Comment: Diagnosis: Acute pyelonephritis Comment: Diagnosis: Ureteric stone Comment: Ordered: Discharge Patient -Routine; 11/06/15 11:46:00 CDT, Home, Diet Regular Diet, Activity No restrictions, Notify Physician Pain, Continue IV acccess Discontinue, Primary Care Physician follow up, Follow up When 1 Week, Hospital Course: This is a 39-year-old lady with a past medical history of a renal stone. She was having a high-grade fever with chills with left abdominal pain. It was becoming worse. The pain was going down and for the same she came. She also had retrosternal chest pain, pacer type. it was not radiating. It was aggravated with deep breath, for the same, she came. She had nausea and vomiting. Denied any diarrhea. She denied any dizziness. LABORATORY DATA: Sodium 135, potassium 3.6, chloride 104, bicarbonate 21, creatinine 0.98, BUN 13, blood sugar 99, albumin 3.4, globulin 3.5, calcium 8.7, ALT 121, AST 16, alkaline phosphate 88, lipase 71, CK-MB, troponin first set negative. T4 1.19. TSH 0.355. Drug tox screen positive for cocaine and opiates. WBC 20.8, hemoglobin 12.9, hematocrit 39.5, platelet 164. Segmented 91, lymphocytes 2, urine is positive for urinary tract infection. CT of the abdomen and pelvis and chest with contrast was done which was showing no evidence of pulmonary embolism, distal left ureteral calculus 0.3-mm left hemiparesis, no acute CT abnormality of the chest, abdomen or pelvis. She was admitted in the hospital and was started on IV antibiotics and IV fluids. Urology consult was asked. Culture was sent and it was positive for E Coli. and sensitive for Cipro. Pain was corrected with Morphine/ She was feeling better and was discharged today. For Detail Hospital course, As follow: 1. Acute Pyelonephritis: UA is positive for infection and has tenderness in left renal angle consistent with Pyelonephritis. On IV fluids and IV antibiotics. On pain management. 11/06/2015: She is doing better and urine culture shows multiple organisms. 2. Left Ureteric stone: Seen by Urology and medical management. 3. Acute Chest Pain pressure type: CTA of chest was done and it is negative for PE or pulmonary pathology. 4. Fever and Chills: Likely dude to #1. Now afebrile. 11/06/2015: Now doing better. 11/06/2015: Discuss with the patient and we will discharge her today. Vital Signs (last 24 hrs) Last Charted Temp Oral98.9 DegF (NOV 05 07:54) Heart Rate [id number] bpm (NOV 05:54) Resp Rate 18 BRMIN (NOV 05:54) PCQ502 mmHg (NOV 05 07:54) DBP74 mmHg (NOV 05 07:54) OkB851 % (NOV 05:54) Labs (Last four charted values) WBC 9.6(NOV 04)H 20.8(NOV 03) Hgb 12.6(NOV 04)12.9(NOV 03) Hct 38.1(NOV 04)39.5(NOV 03) Plt 135(NOV 04)164(OCT 05) Na 140(NOV 04)135(OCT 05) K L 3.4(NOV 04)3.6(OCT 05) CO2 L 23(NOV 04)L 21(OCT 05) Cl 109(OCT 06)104(OCT 05) Cr 0.90(NOV 04)0.98(OCT 05) BUN 7(NOV 04)13(OCT 05) Glucose Random 93(NOV 04)99(NOV 03) Mg 1.8(NOV 04) Phos L 2.2(NOV 04) Ca L 8.1(NOV 04)8.7(NOV 03) PT H 16.1(NOV 03) INR H 1.26(NOV 03) PTT 35.1(NOV 03) Troponin <0.02(NOV 03)<0.02(NOV 03)<0.02(NOV 03) CK MB <0.5(NOV 03) Total CK 45(NOV 03)46(NOV 03)42(NOV 03) Diet: Regular Activity: As tolerated Follow Up: Primary MD in one week Medication: As per reconciliation Total time spent: 35 minutes Extracted from: Title: [id number] Author: Kris Patel MD Date: 11/06/15 Impression and Plan Diagnosis Abdominal pain ([id number] R10.9, Working, Medical). Acute pyelonephritis ([id number] N10, Working, Medical). Ureteric stone ([id number] N20.1, Working, Medical). 1. Acute Pyelonephritis: UA is positive for infection and has tenderness in left renal angle consistent with Pyelonephritis. On IV fluids and IV antibiotics. On pain management. 11/06/2015: She is doing better and urine culture shows multiple organisms. 2. Left Ureteric stone: Seen by Urology and medical management. 3. Acute Chest Pain pressure type: CTA of chest was done and it is negative for PE or pulmonary pathology. 4. Fever and Chills: Likely dude to #1. Now afebrile. 11/06/2015: Now doing better. 11/06/2015: Discuss with the patient and we will discharge her today.
--- OUTSIDE RECORDS SUMMARY | 2018-11-10 00:13 | XMS REPORT | Summary of Care ---
Author Author [facility] Organization [facility] Address Unknown Phone Unavailable Encounter BELIA Johnson(YANY) [id number] Date(s): 06/10/16 - 06/10/16 [facility] [address] [place] [address]- Discharge Diagnosis: Flank pain Discharge Diagnosis: Bilateral kidney stones Discharge Disposition: Home or Self Care Attending Physician: Stefan Jeffery DO Vital Signs 1 2 3 Most recent to oldest [Reference Range]: 160.02 cm (06/10/16 1:44 PM) Height 98.2 DegF (06/10/16 9:00 PM) 98.3 DegF (06/10/16 7:33 PM) 98.8 DegF (06/10/16 5:39 PM) Temperature Oral [96.4-99.1 DegF] 115/74 mmHg (06/10/16 9:00 PM) 118/78 mmHg (06/10/16 7:33 PM) 140/57 mmHg (06/10/16 6:20 PM) Blood Pressure [90-140/60-90 mmHg] 16 BRMIN (06/10/16 9:00 PM) 16 BRMIN (06/10/16 7:33 PM) 18 BRMIN (06/10/16 6:20 PM) Respiratory Rate [14-20 BRMIN] 62 bpm (06/10/16 9:00 PM) 75 bpm (06/10/16 7:33 PM) 77 bpm (06/10/16 6:20 PM) Peripheral Pulse Rate [60-100 bpm] 81.818 kg (06/10/16 1:44 PM) Weight 31.95 m2 (06/10/16 1:44 PM) Body Mass Index Problem List Condition Effective Dates Status Health Status Informant Kidney Active stone(Confirmed) Ovarian Resolved cyst(Confirmed) Vaginal bleeding Active problem(Confirmed) Vaginal Active delivery(Confirmed) Allergies, Adverse Reactions, Alerts Substance Reaction Severity Status NKDA NKDA - No known drug allergies Active Medications Dilaudid 0.5 mg, Route: IV, ONCE, Dosing Weight 81.818, kg, Start date: 06/10/16 19:50:00 YARD SUPERVISOR, Stop date: 06/10/16 19:50:00 YARD SUPERVISOR Start Date: 06/10/16 Stop Date: 06/10/16 Status: Completed ketOROLAC 30 mg, 1 mL, Route: IVP, Drug form: INJ, ONCE, Dosing Weight 81.818, kg, Priorit y: STAT, Start date: 06/10/16 18:35:00 YARD SUPERVISOR, Stop date: 06/10/16 18:35:00 YARD SUPERVISOR Notes: (Same as:Toradol) IV bolus must be given >15 seconds. Give IM administration slowly and deeply into the muscle.Not for use > 4 days MEDICATION WASTE Product Size: 30 mgProduct Wasted: ___ mg Start Date: 06/10/16 Stop Date: 06/10/16 Status: Completed ketOROLAC 10 mg oral tablet 10 mg=1 tab, PO, Q6H, X 5 day, # 20 tab, 0 Refill(s) Start Date: 06/10/16 Stop Date: 06/15/16 Status: Ordered NS (Bolus) IV 1,000 mL, 1,000 ml/hr, Infuse Over: 1 hr, Route: IV, 1,000, Drug form: INJ, ONCE , Priority: STAT, Dosing Weight 81.818 kg, Start date: 06/10/16 18:35:00 YARD SUPERVISOR, Du ration: 1 doses or times, Stop date: 06/10/16 18:35:00 YARD SUPERVISOR Start Date: 06/10/16 Stop Date: 06/10/16 Status: Completed Tylenol with Codeine #3 oral tablet 1 tab, PO, Q6H, PRN Pain Score 4-6, X 3 day, # 15 tab, 0 Refill(s) Start Date: 06/10/16 Stop Date: 06/13/16 Status: Ordered Zofran 4 mg, 2 mL, Route: IVP, Drug form: INJ, ONCE, Dosing Weight 81.818, kg, Priority : STAT, Start date: 06/10/16 18:36:00 YARD SUPERVISOR, Stop date: 06/10/16 18:36:00 YARD SUPERVISOR Notes: (Same as: Zofran) MEDICATION WASTE Product Size: 4 mgProduct Was luisito: ___ mg Start Date: 06/10/16 Stop Date: 06/10/16 Status: Completed Zofran ODT 4 mg oral tablet, disintegrating 4 mg=1 tab, PO, BID, PRN Nausea and Vomiting, Dissolve tab under tongue, X 5 day , # 10 tab, 0 Refill(s) Start Date: 06/10/16 Stop Date: 06/15/16 Status: Ordered Results ELECTROLYTES Most recent to 1 oldest [Reference Range]: Sodium Lvl [135-145 138 mEq/L mEq/L] (06/10/16 2:55 PM) Potassium Lvl 4.1 mEq/L [3.5-5.1 mEq/L] (06/10/16 2:55 PM) Chloride Lvl [95-109 106 mEq/L mEq/L] (06/10/16 2:55 PM) CO2 [24-32 mEq/L] 25 mEq/L (06/10/16 2:55 PM) AGAP [10.0-20.0 11.1 mEq/L mEq/L] (06/10/16 2:55 PM) CHEM PANEL Most recent to 1 oldest [Reference Range]: Creatinine Lvl 0.73 mg/dL [0.50-1.40 mg/dL] (06/10/16 2:55 PM) eGFR 105 mL/min/1.73m2 1 *NA* (06/10/16 2:55 PM) BUN [7-22 mg/dL] 14 mg/dL (06/10/16 2:55 PM) B/C Ratio [6-25] 19 (06/10/16 2:55 PM) Glucose Lvl [70-99 86 mg/dL mg/dL] (06/10/16 2:55 PM) Total Protein 7.2 g/dL [6.4-8.4 g/dL] (06/10/16 2:55 PM) Albumin Lvl [3.5-5.0 3.6 g/dL g/dL] (06/10/16 2:55 PM) Globulin [2.7-4.2 3.6 g/dL g/dL] (06/10/16 2:55 PM) A/G Ratio [0.7-1.6] 1.0 (06/10/16 2:55 PM) Calcium Lvl 9.1 mg/dL [8.5-10.5 mg/dL] (06/10/16 2:55 PM) ALT [0-65 unit/L] 18 unit/L (06/10/16 2:55 PM) AST [0-37 unit/L] 10 unit/L (06/10/16 2:55 PM) Alk Phos [39-136 69 unit/L unit/L] (06/10/16 2:55 PM) Bili Total [0.2-1.3 0.2 mg/dL mg/dL] (06/10/16 2:55 PM) 1Result Comment: The eGFR is calculated [...] oldest [Reference Range]: U Preg [Negative] Negative (06/10/16 2:22 PM) URINE AND STOOL Most recent to 1 oldest [Reference Range]: UA Turbidity [Clear] Clear (06/10/16 2:22 PM) UA Color Ltyellow *NA* (06/10/16 2:22 PM) UA pH [5.0-8.0] 6.0 (06/10/16 2:22 PM) UA Spec Grav 1.009 [<=1.030] (06/10/16 2:22 PM) UA Glucose [Negative Negative mg/dL mg/dL] *NA* (06/10/16 2:22 PM) UA Blood [Negative] Negative (06/10/16 2:22 PM) UA Ketones [Negative Negative mg/dL mg/dL] *NA* (06/10/16 2:22 PM) UA Protein [Negative Negative mg/dL mg/dL] (06/10/16 2:22 PM) UA Urobilinogen <=1.0 mg/dL [0.1-1.0 mg/dL] *NA* (06/10/16 2:22 PM) UA Bili [Negative] Negative *NA* (06/10/16 2:22 PM) UA Leuk Est Negative [Negative] (06/10/16 2:22 PM) UA Nitrite Positive [Negative] *ABN* (06/10/16 2:22 PM) UA WBC [0-5 /HPF] 4 /HPF (06/10/16 2:22 PM) UA RBC [0-2 /HPF] <1 /HPF (06/10/16 2:22 PM) UA Bacteria [None Few /HPF Seen /HPF] *NA* (06/10/16 2:22 PM) UA Sq Epi [Few /LPF] Occasional /LPF *NA* (06/10/16 2:22 PM) HEMATOLOGY Most recent to 1 oldest [Reference Range]: WBC [3.7-10.4 K/CMM] 8.9 K/CMM (06/10/16 2:55 PM) RBC [4.20-5.40 4.63 M/CMM M/CMM] (06/10/16 2:55 PM) Hgb [12.0-16.0 g/dL] 13.7 g/dL (06/10/16 2:55 PM) Hct [36.0-48.0 %] 39.6 % (06/10/16 2:55 PM) MCV [80.0-98.0 fL] 85.6 fL (06/10/16 2:55 PM) MCH [27.0-31.0 pg] 29.7 pg (06/10/16 2:55 PM) MCHC [32.0-36.0 34.7 g/dL g/dL] (06/10/16 2:55 PM) RDW [11.5-14.5 %] 14.8 % *HI* (06/10/16 2:55 PM) Platelet [133-450 254 K/CMM K/CMM] (06/10/16 2:55 PM) MPV [7.4-10.4 fL] 7.7 fL (06/10/16 2:55 PM) Segs [45.0-75.0 %] 69.9 % (06/10/16 2:55 PM) Lymphocytes 21.9 % [20.0-40.0 %] (06/10/16 2:55 PM) Monocytes [2.0-12.0 6.2 % %] (06/10/16 2:55 PM) Eosinophils [0.0-4.0 1.1 % %] (06/10/16 2:55 PM) Basophils [0.0-1.0 0.9 % %] (06/10/16 2:55 PM) Segs-Bands # 6.2 K/CMM [1.5-8.1 K/CMM] (06/10/16 2:55 PM) Lymphocytes # 1.9 K/CMM [1.0-5.5 K/CMM] (06/10/16 2:55 PM) Monocytes # [0.0-0.8 0.6 K/CMM K/CMM] (06/10/16 2:55 PM) Eosinophils # 0.1 K/CMM [0.0-0.5 K/CMM] (06/10/16 2:55 PM) Basophils # [0.0-0.2 0.1 K/CMM K/CMM] (06/10/16 2:55 PM) Immunizations No data available for this [...]
--- OUTSIDE RECORDS SUMMARY | 2018-11-10 00:13 | XMS REPORT | Summary of Care ---
Author Author [facility] Organization [facility] Address Unknown Phone Unavailable Encounter BELIA Johnson(YANY) [id number] Date(s): 06/12/16 - 06/12/16 [facility] [address] [place] [address]- [phone] Discharge Diagnosis: Acute UTI Discharge Diagnosis: Acute right flank pain Discharge Disposition: Home or Self Care Attending Physician: Martinez Babcock MD Vital Signs 1 2 3 Most recent to oldest [Reference Range]: 162.56 cm (06/12/16 7:42 AM) Height 98.3 DegF (06/12/16 10:17 AM) 98.1 DegF (06/12/16 7:42 AM) Temperature Oral [96.4-99.1 DegF] 115/62 mmHg (06/12/16 10:17 AM) 125/66 mmHg (06/12/16 9:03 AM) 119/68 mmHg (06/12/16 7:53 AM) Blood Pressure [90-140/60-90 mmHg] 16 BRMIN (06/12/16 10:17 AM) 14 BRMIN (06/12/16 9:03 AM) 14 BRMIN (06/12/16 7:53 AM) Respiratory Rate [14-20 BRMIN] 76 bpm (06/12/16 7:53 AM) 78 bpm (06/12/16 7:42 AM) Peripheral Pulse Rate [60-100 bpm] 81.818 kg (06/12/16 7:42 AM) Weight 30.96 m2 (06/12/16 7:42 AM) Body Mass Index Problem List Condition Effective Dates Status Health Status Informant Kidney Active stone(Confirmed) Ovarian Resolved cyst(Confirmed) Vaginal bleeding Active problem(Confirmed) Vaginal Active delivery(Confirmed) Allergies, Adverse Reactions, Alerts Substance Reaction Severity Status NKDA NKDA - No known drug allergies Active Medications cefTRIAXone + sodium chloride 0.9% INJ 100 mL 1 gm, Route: IVPB, ONCE, Dosing Weight 81.818, kg, Priority: STAT, Start date: 0 06/12/16 8:56:00 LABOR UNION BUSINESS REPRESENTATIVE, Stop date: 06/12/16 8:56:00 LABOR UNION BUSINESS REPRESENTATIVE Notes: (Same As: Rocephin).Use with 100 mL NS and infuse over 30 min MEDICA TION WASTE Product Size: 1000 mgProduct Wasted: ___ mg Start Date: 06/12/16 Stop Date: 06/12/16 Status: Completed hydromorphone 1 mg, 1 mL, Route: IVP, Drug form: INJ, ONCE, Dosing Weight 81.818, kg, Priority : STAT, Start date: 06/12/16 8:04:00 LABOR UNION BUSINESS REPRESENTATIVE, Stop date: 06/12/16 8:04:00 LABOR UNION BUSINESS REPRESENTATIVE Start Date: 06/12/16 Stop Date: 06/12/16 Status: Completed Keflex 500 mg oral capsule 500 mg=1 cap, PO, BID, X 10 day, # 20 cap, 0 Refill(s), Pharmacy: [facility] [id number] Start Date: 06/12/16 Stop Date: 06/22/16 Status: Ordered ketOROLAC 30 mg, 1 mL, Route: IVP, Drug form: INJ, ONCE, Dosing Weight 81.818, kg, Priorit y: STAT, Start date: 06/12/16 8:01:00 LABOR UNION BUSINESS REPRESENTATIVE, Stop date: 06/12/16 8:01:00 LABOR UNION BUSINESS REPRESENTATIVE Notes: (Same as:Toradol) IV bolus must be given >15 seconds. Give IM administration slowly and deeply into the muscle.Not for use > 4 days MEDICATION WASTE Product Size: 30 mgProduct Wasted: ___ mg Start Date: 06/12/16 Stop Date: 06/12/16 Status: Completed ondansetron 4 mg, 2 mL, Route: IVP, Drug form: INJ, ONCE, Dosing Weight 81.818, kg, Priority : STAT, Start date: 06/12/16 8:04:00 LABOR UNION BUSINESS REPRESENTATIVE, Stop date: 06/12/16 8:04:00 LABOR UNION BUSINESS REPRESENTATIVE Notes: (Same as: Zofran) MEDICATION WASTE Product Size: 4 mgProduct Was luisito: ___ mg Start Date: 06/12/16 Stop Date: 06/12/16 Status: Completed Saline Flush 0.9% 10 mL, Route: IVP, Drug Form: INJ, Dosing Weight 81.818, kg, PRN, PRN Line Flush , Start date: 06/12/16 8:04:00 LABOR UNION BUSINESS REPRESENTATIVE, Duration: 30 day, Stop date: 07/12/16 8:03:0 0 LABOR UNION BUSINESS REPRESENTATIVE Notes: (Same as: BD Posiflush) Start Date: 06/12/16 Stop Date: 06/12/16 Status: Discontinued Sodium Chloride 0.9% (Bolus) IV 1,000 mL, 1000 ml/hr, Infuse Over: 1 hr, Route: IV, 1,000, Drug form: INJ, ONCE, Priority: STAT, Dosing Weight 81.818 kg, Start date: 06/12/16 8:04:00 LABOR UNION BUSINESS REPRESENTATIVE, Dura tion: 1 doses or times, Stop date: 06/12/16 8:04:00 LABOR UNION BUSINESS REPRESENTATIVE Start Date: 06/12/16 Stop Date: 06/12/16 Status: Completed Results ELECTROLYTES Most recent to 1 oldest [Reference Range]: Sodium Lvl [135-145 137 mEq/L mEq/L] (06/12/16 8:16 AM) Potassium Lvl 4.1 mEq/L [3.5-5.1 mEq/L] (06/12/16 8:16 AM) Chloride Lvl [95-109 105 mEq/L mEq/L] (06/12/16 8:16 AM) CO2 [24-32 mEq/L] 24 mEq/L (06/12/16 8:16 AM) AGAP [10.0-20.0 12.1 mEq/L mEq/L] (06/12/16 8:16 AM) CHEM PANEL Most recent to 1 oldest [Reference Range]: Creatinine Lvl 0.93 mg/dL [0.50-1.40 mg/dL] (06/12/16 8:16 AM) eGFR 78 mL/min/1.73m2 1 *NA* (06/12/16 8:16 AM) BUN [7-22 mg/dL] 15 mg/dL (06/12/16 8:16 AM) B/C Ratio [6-25] 16 (06/12/16 8:16 AM) Glucose Lvl [70-99 98 mg/dL mg/dL] (06/12/16 8:16 AM) Total Protein 7.0 g/dL [6.4-8.4 g/dL] (06/12/16 8:16 AM) Albumin Lvl [3.5-5.0 3.6 g/dL g/dL] (06/12/16 8:16 AM) Globulin [2.7-4.2 3.4 g/dL g/dL] (06/12/16 8:16 AM) A/G Ratio [0.7-1.6] 1.1 (06/12/16 8:16 AM) Calcium Lvl 9.3 mg/dL [8.5-10.5 mg/dL] (06/12/16 8:16 AM) ALT [0-65 unit/L] 19 unit/L (06/12/16 8:16 AM) AST [0-37 unit/L] 15 unit/L (06/12/16 8:16 AM) Alk Phos [39-136 65 unit/L unit/L] (06/12/16 8:16 AM) Bili Total [0.2-1.3 0.7 mg/dL mg/dL] (06/12/16 8:16 AM) Lipase Lvl [73-393 190 unit/L unit/L] (06/12/16 8:16 AM) 1Result Comment: The eGFR is calculated [...] oldest [Reference Range]: U Preg [Negative] Negative (06/12/16 8:16 AM) URINE AND STOOL Most recent to 1 oldest [Reference Range]: UA Turbidity [Clear] Clear (06/12/16 8:16 AM) UA Color Ltyellow *NA* (06/12/16 8:16 AM) UA pH [5.0-8.0] 6.0 (06/12/16 8:16 AM) UA Spec Grav 1.012 [<=1.030] (06/12/16 8:16 AM) UA Glucose [Negative Negative mg/dL mg/dL] *NA* (06/12/16 8:16 AM) UA Blood [Negative] Negative (06/12/16 8:16 AM) UA Ketones [Negative Negative mg/dL mg/dL] *NA* (06/12/16 8:16 AM) UA Protein [Negative Negative mg/dL mg/dL] (06/12/16 8:16 AM) UA Urobilinogen <=1.0 mg/dL [0.1-1.0 mg/dL] *NA* (06/12/16 8:16 AM) UA Bili [Negative] Negative *NA* (06/12/16 8:16 AM) UA Leuk Est Trace [Negative] *ABN* (06/12/16 8:16 AM) UA Nitrite Negative [Negative] (06/12/16 8:16 AM) UA WBC [0-5 /HPF] 3 /HPF (06/12/16 8:16 AM) UA RBC [0-2 /HPF] 1 /HPF (06/12/16 8:16 AM) UA Bacteria [None Occasional /HPF Seen /HPF] *NA* (06/12/16 8:16 AM) UA Sq Epi [Few /LPF] Few /LPF *NA* (06/12/16 8:16 AM) HEMATOLOGY Most recent to 1 oldest [Reference Range]: WBC [3.7-10.4 K/CMM] 10.3 K/CMM (06/12/16 8:16 AM) RBC [4.20-5.40 4.73 M/CMM M/CMM] (06/12/16 8:16 AM) Hgb [12.0-16.0 g/dL] 13.8 g/dL (06/12/16 8:16 AM) Hct [36.0-48.0 %] 40.3 % (06/12/16 8:16 AM) MCV [80.0-98.0 fL] 85.3 fL (06/12/16 8:16 AM) MCH [27.0-31.0 pg] 29.2 pg (06/12/16 8:16 AM) MCHC [32.0-36.0 34.3 g/dL g/dL] (06/12/16 8:16 AM) RDW [11.5-14.5 %] 14.2 % (06/12/16 8:16 AM) Platelet [133-450 242 K/CMM K/CMM] (06/12/16 8:16 AM) MPV [7.4-10.4 fL] 8.1 fL (06/12/16 8:16 AM) Segs [45.0-75.0 %] 82.5 % *HI* (06/12/16 8:16 AM) Lymphocytes 12.4 % [20.0-40.0 %] *LOW* (06/12/16 8:16 AM) Monocytes [2.0-12.0 3.1 % %] (06/12/16 8:16 AM) Eosinophils [0.0-4.0 1.3 % %] (06/12/16 8:16 AM) Basophils [0.0-1.0 0.7 % %] (06/12/16 8:16 AM) Segs-Bands # 8.5 K/CMM [1.5-8.1 K/CMM] *HI* (06/12/16 8:16 AM) Lymphocytes # 1.3 K/CMM [1.0-5.5 K/CMM] (06/12/16 8:16 AM) Monocytes # [0.0-0.8 0.3 K/CMM K/CMM] (06/12/16 8:16 AM) Eosinophils # 0.1 K/CMM [0.0-0.5 K/CMM] (06/12/16 8:16 AM) Basophils # [0.0-0.2 0.1 K/CMM K/CMM] (06/12/16 8:16 AM) Immunizations No data available for this [...]
[2018-11-10] MEDS: CEFTRIAXONE SOD 1 GM/NS 50 ML 50 ML IV SCH ×3 (00:29→23:10)
[2018-11-10] MEDS ORDERED: CLONAZEPAM2 MG PO (00:31)
[2018-11-10] MEDS: SODIUM CHLORIDE 0.9% 1000ML 1,000 ML IV SCH ×4 (01:05→23:26)
[2018-11-10] MEDS: HYDROMORPHONE 2MG/ML 2 MG/ML ML IV PRN ×7 (01:30→23:11)
[2018-11-10] MEDS: ONDANSETRON HCL INJ 2MG/ML 2ML 2 MG/ML VIAL IV PRN ×2 (05:49→11:07)
--- NOTE | 2018-11-10 06:51 | NUR ---
PRIMARY CARE PHYSICIAN: Dr. Pena CHIEF COMPLAINT: nephrolithiasis HISTORY OF PRESENT ILLNESS: This is a 42-year-old woman with B/L nephrolithiasis. Pt had cystoscopy with B/L ureteroscopy with stone removal at [place] yesterday by , went home, developed severe abdominal and right flank pain, with bloody urine, called urology, asked to come to hospital. PAST MEDICAL HISTORY: Nephrolithiasis, obesity, Acute pancreatitis, constipation PAST SURGICAL HISTORY: Cholecystectomy, hysterectomy, umbilical hernia repair, cystoscopy with B/L ureteroscopy with stone extraction 10/2018 ALLERGIES: PER ELECTRONIC MEDICAL RECORDS. FAMILY HISTORY AND SOCIAL HISTORY: The patient is . She has 4 children. Occasional alcohol. No cigarettes or illicits. MEDICATIONS: Per electronic medical records. REVIEW OF SYSTEMS: Denies any dizziness or chest pain. PHYSICAL EXAMINATION VITAL SIGNS: Reviewed. tired appearing anicteric ns1s2 mod bs soft ; right abdomen tender; right flank tender no e/t skin dry n. affect a&ox3; slater LABS: Reviewed. MEDICATIONS: Reviewed. ASSESSMENT AND PLAN: A 42-year-old woman: 1.B/L nephrolithiasis 2.Hyponatremia 3.Metabolic acidosis 4.UTI 5.Morbid obesity 6.BMI 40.7 7.Prop: SCD PLAN IV pain meds IV ceftriaxone hba1c/lipids Urology consult IVF Glenn Jacobo MD, PhD.
--- NOTE | 2018-11-10 07:10 | NUR ---
BEDSIDE ROUNDS COMPLETE NO DISTRESS NOTED, IVF INFUSING TO R AC 20G NO SS OF INFILTRATION NOTED, DENIES PAIN AT THIS TIME,CALL LIGHT IN REACH WILL CONTINUE TO MONITOR
[2018-11-10 07:23] LABS: CHOL/HDL RATIO 3.3 (3.0-3.6)
[2018-11-10] MEDS: PROMETHAZINE 12.5MG/ NACL 0.9% 12.5 MG/50 ML BAG IV PRN (14:32)
[2018-11-10] MEDS: KETOROLAC TROMETHAMINE 30 MG/ML VIAL IV PRN (17:14)
--- NOTE | 2018-11-10 19:13 | NUR ---
WALKING ROUNDS PERFORMED, RECEIVED PT LAYING SEMI FOWLERS IN BED, AAOX3, RR EVEN AND NON-LABORED, ON RA. PT REPORTS PAIN TO 9R) LOWER ABDOMEN. FAMILY AT BEDSIDE. LEFT PT LAYING SEMI FOWLERS IN BED, BED IN LOW LOCKED POSITION, SIDE RAILS UPX2, CALL LIGHT AND PHONE WITHIN REACH.
[2018-11-10] MEDS: CLONAZEPAM 1 MG TAB PO SCH (20:11)
[2018-11-10] MEDS: AMITRIPTYLINE HCL 25 MG TAB PO SCH (20:11)
[2018-11-10] MEDS ORDERED: NON-FORMULARY MEDICATION (Amitriptyline Hcl 150 MG) PO SCH (21:00)
[2018-11-10] MEDS ORDERED: CLONAZEPAM 2 MG PO SCH (21:00)
[2018-11-11] VITALS (7 sets, daily range): BP systolic 105–134; BP diastolic 68–80
[2018-11-11] MEDS: ONDANSETRON HCL INJ 2MG/ML 2ML 2 MG/ML VIAL IV PRN ×3 (00:40→18:02)
[2018-11-11] MEDS: KETOROLAC TROMETHAMINE 30 MG/ML VIAL IV PRN ×3 (00:40→20:00)
[2018-11-11] MEDS: SODIUM CHLORIDE 0.9% 1000ML 1,000 ML IV SCH ×3 (03:53→22:58)
[2018-11-11] MEDS: HYDROMORPHONE 2MG/ML 2 MG/ML ML IV PRN ×5 (03:53→21:18)
--- NOTE | 2018-11-11 07:20 | NUR ---
pt alert resp even and unlabored at this time no distress noted, pt able to make needs known, call light in reach.
--- NOTE | 2018-11-11 10:00 | NUR ---
Spoke to Dr. Jacobo regarding DC plan. Pt is 2 day OBS. He states pt can discharge home once urine culture results are back.
--- NOTE | 2018-11-11 10:26 | NUR ---
IM- Progress note REVIEW OF SYSTEMS: Denies any dizziness or chest pain. PHYSICAL EXAMINATION VITAL SIGNS: Reviewed. tired appearing anicteric ns1s2 mod bs soft ; right abdomen tender; right flank tender no e/t skin dry n. affect a&ox3; slater LABS: Reviewed. MEDICATIONS: Reviewed. ASSESSMENT AND PLAN: A 42-year-old woman: 1.B/L nephrolithiasis 2.Hyponatremia 3.Metabolic acidosis 4.UTI 5.Morbid obesity 6.BMI 40.7 7.Prop: SCD PLAN IV pain meds IV ceftriaxone hba1c/lipids Urology consult IVF Hba1c/LDL 5.3/108; f/u cx. d/c planning; Glenn Jacobo MD, PhD. 11/11/18 Hba1c/LDL 5.3/108; f/u cultures
[2018-11-11 10:52] LABS: BASOPHILS # (AUTO) 0.1 (0.0-0.1); BASOPHILS % 0.9 % (0.0-1.0); EOSINOPHILS # (AUTO) 0.1 (0.0-0.4); EOSINOPHILS % 2.4 % (0.0-6.0); HEMATOCRIT 35.1 % (34.2-44.1); HEMOGLOBIN 11.7 g/dL (12.0-16.0); LYMPHOCYTES # (AUTO) 2.2 (1.0-3.2); LYMPHOCYTES % 39.6 % (18.0-39.1); MEAN CORPUSCULAR HEMOGLOBIN 29.5 pg (28-32); MEAN CORPUSCULAR HGB CONC 33.3 g/dL (31-35); MEAN CORPUSCULAR VOLUME 88.4 fL (81-99); MONOCYTES # (AUTO) 0.4 (0.2-0.8); NEUTROPHILS # (AUTO) 2.7 (2.1-6.9); NEUTROPHILS % 49.1 % (38.7-80.0); PLATELET COUNT 205 x10e3/uL (140-360); RED BLOOD COUNT 3.97 x10e6/uL (3.6-5.1); RED CELL DISTRIBUTION WIDTH 13.5 % (11.7-14.4)
[2018-11-11] MEDS: CEFTRIAXONE SOD 1 GM/NS 50 ML 50 ML IV SCH (12:01)
[2018-11-11 12:08] LABS: ANION GAP 9.9 mmol/L (8-16); BLOOD UREA NITROGEN 9 mg/dL (7-26); BUN/CREATININE RATIO 11 (6-25); CALCIUM 8.3 mg/dL (8.4-10.2); CARBON DIOXIDE 22 mmol/L (22-29); CHLORIDE 106 mmol/L (98-107); CREATININE, SERUM 0.84 mg/dL (0.57-1.11); EST GLOMERULAR FILTRATION RATE > 60 ML/MIN (60-); GLUCOSE 89 mg/dL (74-118); POTASSIUM 3.9 mmol/L (3.5-5.1); SODIUM 134 mmol/L (136-145)
[2018-11-11] MEDS: PROMETHAZINE 12.5MG/ NACL 0.9% 12.5 MG/50 ML BAG IV PRN (13:46)
--- NOTE | 2018-11-11 17:18 | NUR ---
Left message for Dr. Jacobo. Urine culture NO GROWTH 36-48 HRS.
--- NOTE | 2018-11-11 18:58 | NUR ---
WALKING ROUNDS PERFORMED, RECEIVED PT SITTING IN BED, AAOX3, CRYING. PT REPORTS PAIN OF 10/10 TO (R) LOWER ABDOMEN. FAMILY AT BEDSIDE. LEFT PT LAYING SEMI FOWLERS IN BED, BED IN LOW LOCKED POSITION, SIDE RAILS UPX2, CALL LIGHT AND PHONE WITHIN REACH.
--- NOTE | 2018-11-11 19:24 | NUR ---
report given to oncoming nurse, for continued care.
--- NOTE | 2018-11-11 19:51 | NUR ---
SPOKE WITH MD MALONEY COVERING FOR MD TILLEY CONCERNING PT REPORTS OF (R) LOWER ABDOMINAL PAIN NOT RELIEVED BY PAIN MEDICATION. NEW ORDERS RECEIVED.
--- NOTE | 2018-11-11 20:05 | NUR ---
CONTRAST PROVIDED TO PT BY RADIOLOGY FOR ABD/PELVIS.
--- NOTE | 2018-11-11 20:30 | NUR ---
PT TRANSPORTED BY WHEELCHAIR TO TO RADIOLOGY FOR CT.
--- NOTE | 2018-11-11 20:45 | NUR ---
PT AMBULATING IN [place] WITH FAMILY, STEADY GAIT NOTED, NO S/SX OF DISTRESS NOTED.
--- NOTE | 2018-11-11 20:59 | NUR ---
RECEIVED CALL FROM MD TILLEY CONCERNING PT STATUS. NEW ORDERS RECEIVED TO MAKE INPATIENT.
--- NOTE | 2018-11-11 21:17 | Diagnostic Imaging Report ---
EXAM: CT of the abdomen and pelvis WITH contrast HISTORY: ABDOMINAL PAIN, right lower abdominal pain, status post lithotripsy COMPARISON: CT of the abdomen and pelvis October 01, 2018. TECHNIQUE: The abdomen and pelvis were scanned utilizing a multidetector helical scanner. Coronal and sagittal reformats are provided. PROTOCOL: Routine IV CONTRAST: 100 cc of Isovue-370. ORAL CONTRAST: None, which limits sensitivity and specificity of the exam. RADIATION DOSE: Total DLP: 844.3 mGy*cm Estimated effective dose: (DLP x 0.015 x size factor) Dose modulation, iterative reconstruction, and/or weight based adjustment of the mA/kV was utilized to reduce the radiation dose to as low as reasonably achievable. COMPLICATIONS: None FINDINGS: LOWER THORAX: Unremarkable. HEPATOBILIARY: Diffusely decreased attenuation of the liver relative to the spleen. No mass. No biliary dilation. Metallic clips in the right upper quadrant of the abdomen are compatible with prior cholecystectomy. SPLEEN: No splenomegaly. PANCREAS: No focal masses or ductal dilatation. ADRENALS: No discrete adrenal nodule. KIDNEYS/URETERS: The punctate bilateral renal calcifications are better seen on the comparison CT without contrast. No hydronephrosis. Mild enhancement of the ureteral mckinney, right greater than left. Mild fat stranding about the distal ureter. PELVIC ORGANS/BLADDER: Small air foci within the nondependent portion of the urinary bladder, compatible with recent instrumentation. A 1.5 cm curvilinear enhancement in the left ovary and smaller on the right, compatible with a corpus luteum cysts. GI TRACT: No dilation or wall thickening identified. The appendix is normal. PERITONEUM / RETROPERITONEUM: No free air or fluid. Two metallic densities at the paramedian omentum. LYMPH NODES: No pathologically enlarged lymph node. VESSELS: Unremarkable. BONES: No aggressive osseous lesion or acute fracture. A small nonaggressive sclerotic density within the L5 vertebral body, compatible the bone island. SOFT TISSUES: Ventral midline surgical scar. IMPRESSION: 1. Small bilateral renal stones are better seen on the comparison CT. 2. No hydronephrosis. 3. No abscess. 4. Bilateral corpus luteum cysts within the ovaries. 5. Small amount of air within the urinary bladder, compatible with recent instrumentation. Signed by: Dr. Harsh Herrmann D.O., M.M.M. on 11/11/2018 9:14 PM
[2018-11-11] MEDS: CLONAZEPAM 1 MG TAB PO SCH (21:18)
[2018-11-11] MEDS: AMITRIPTYLINE HCL 25 MG TAB PO SCH (21:18)
--- NOTE | 2018-11-11 21:22 | NUR ---
ATTEMPT MADE TO CALL MD MALONEY RESULTS OF CT, NO ANSWER WILL ATTEMPT LATER
--- NOTE | 2018-11-11 21:52 | NUR ---
SPOKE WITH MD MALONEY WITH RESULTS OF CT ABD/PELVIS. NO NEW ORDERS.
[2018-11-12] VITALS: BP 118/80
[2018-11-12] MEDS: HYDROMORPHONE 2MG/ML 2 MG/ML ML IV PRN ×3 (00:20→09:13)
[2018-11-12] MEDS: CEFTRIAXONE SOD 1 GM/NS 50 ML 50 ML IV SCH (00:23)
[2018-11-12] MEDS ORDERED: IOPAMIDOL 370 MG/ML 200 ML INFUS..BTL INJ ONE (01:08)
[2018-11-12] MEDS ORDERED: SODIUM CHLORIDE 0.9% 50ML 50 ML ONE (01:08)
[2018-11-12] MEDS: KETOROLAC TROMETHAMINE 30 MG/ML VIAL IV PRN ×2 (02:20→10:14)
[2018-11-12 06:00] VITALS: BP 121/77
--- NOTE | 2018-11-12 07:02 | NUR ---
RECEIVED PT LYING IN BED WITH EYES CLOSED, RESP EVEN AND UNLABORED. CALL LIGHT WITHIN REACH.
[2018-11-12] MEDS: SODIUM CHLORIDE 0.9% 1000ML 1,000 ML IV SCH (07:31)
[2018-11-12 07:52] VITALS: BP 105/71
[2018-11-12 08:10] VITALS: BP 105/71
--- NOTE | 2018-11-12 10:51 | NUR ---
PATIENT LEFT AMA AT THIS TIME. ALL PERSONAL BELONGINGS WITH PATIENT. PIV REMOVED WITH TIP INTACT. COVERING FOR NOTIFIED.
== END 2018-11-12 10:55 | disposition left against medical advice (07) ==
LOC: ER 20:44 → ERHOLD 23:38 → MED/SURG 11-10 01:24
PROVIDERS: ADMIT Internal Medicine; ATTEND Internal Medicine
DX: N20.0 Calculus of kidney (principal); N81.10 Cystocele, unspecified; N36.41 Hypermobility of urethra; N81.6 Rectocele; R49.22 Hyponasality; E87.1 Hypo-osmolality and hyponatremia; E87.2 Acidosis; E66.01 Morbid (severe) obesity due to excess calories; Z87.891 Personal history of nicotine dependence; Z87.442 Personal history of urinary calculi; N30.01 Acute cystitis with hematuria; Z87.440 Personal history of urinary (tract) infections; Z68.41 Body mass index [BMI] 40.0-44.9, adult
CPT/HCPCS: 36415; 74177; 80048; 80053; 80061; 81001; 82150; 83036; 83690; 83735; 85025; 85610; 85730; 87086; 96374; 96375; 99284; G0378; J0696; J1885; J2405; J2550; J7030; Q9967

== ENCOUNTER 2019-02-26 12:14 | Emergency (ER) | payer OTHER ==
[~2019-02-26] VITALS: Ht 162.6 cm; Wt 99.8 kg
[~2019-02-26 12:14] MED LIST changes: +CLONAZEPAM2 MG PO
--- OUTSIDE RECORDS SUMMARY | 2019-02-26 12:17 | XMS REPORT | Clinical Summary ---
Author Author [facility] Address Unknown Phone Unavailable Care Team Providers Care Entry Level Marketing Assistant Name Role Phone Asked, No Pcp PCP [...] (Primary Dx) 03/05/2018 Emergency Emergency Medicine after 02/25/2018 Social History Date Tobacco Use Types Packs/Day Years Used Quit: 2004 Former Smoker Cigarettes 10 Smokeless Tobacco: Never Used Drinks/Week oz/Week Comments Alcohol Use "two or three beers in a month; it's rare" Yes Sex Assigned at Date Recorded Not on file Industry Job Start Date Occupation Not on file Not on file Not on file Travel End Travel History Travel Start No recent travel history available. Last Filed Vital Signs Reading Time Taken Comments Vital Sign 124/77 03/05/2018 1:30 PM CDT Blood Pressure 78 03/05/2018 1:30 PM CDT Pulse 36.8 C (98.3 F) 03/05/2018 8:49 AM CDT Temperature 25 03/05/2018 1:30 PM CDT Respiratory Rate 97% 03/05/2018 1:30 PM CDT Oxygen Saturation - - Inhaled Oxygen Concentration - - Weight 162.6 cm (5' 4") 03/05/2018 11:16 AM CDT Height - - Body Mass Index Plan of Treatment Health Maintenance Due Date [...] 12-LEAD STAT 03/05/2018 9:02 AM CDT after 02/25/2018 Results * Lactic acid level, SEPSIS - Now and repeat 2x every 3 hours (03/05/2018 1:15 PM CDT) Only the most recent of 2 results within the time period is included. Lactic acid 1.4 0.5 - 2.2 mmol/L [facility] DEPARTMENT OF PATHOLOGY AND GENOMIC MEDICINE Specimen Blood Performing Organization Address City/State/Zipcode Phone Number [facility] DEPARTMENT OF [address] [place] [address] PATHOLOGY AND GENOMIC MEDICINE * CT Chest [...] No fluid collections. IMPRESSION: No acute abnormality. [id number] Procedure Note Hm Interface, Radiology Results Incoming [...] No fluid collections. IMPRESSION: No acute abnormality. [id number] Performing Organization Address City/[facility]/[place] [address] * Estimated GFR (03/05/2018 10:15 AM CDT) [facility] Estimated GFR 87 mL/min/1.73 m2 [facility] DEPARTMENT Comment: OF PATHOLOGY CatergoryUnitsInte AND GENOMIC rpretation MEDICINE G1 >=90 Normal or high G2 60-89Mildly decreased [id number] Mildly to moderately decreased Z1p21-05 Moderately to severely decreased G4 15-29Severely decreased G5 <15Kidney failure The eGFR was calculated using the Chronic Kidney Disease Epidemiology Collaboration (CKD-EPI) equation. Interpretation is based on recommendations of the National Kidney Foundation-Kidney Disease Outcomes Quality Initiative (NKF-KDOQI) published in 2014. Specimen Plasma specimen Performing Organization Address [facility] Phone Number [facility] [place] [address] PATHOLOGY AND [facility] * Troponin (03/05/2018 10:15 AM CDT) [facility] Troponin <0.30 0.00 - 0.30 ng/mL [facility] DEPARTMENT Comment: OF PATHOLOGY 0.30 - 1.49 AND [facility] ng/mlMay MEDICINE indicate increased risk of acute coronary syndrome. >=1.5 ng/ml Consistent with acute myocardial infarction. The diagnostic value of a single normal or non-diagnostic result is questionable.Serial samples at 2-6 hour intervals are required to rule out acute myocardial injury. Specimen Plasma specimen Performing Organization Address [facility] Phone Number [facility] [place] [address] PATHOLOGY AND [facility] * Partial thromboplastin time, activated (03/05/2018 10:15 AM CDT) [facility] PTT 29.9 23.0 - 36.0 sec [facility] DEPARTMENT Comment: OF PATHOLOGY PTT therapeutic range for AND GENOMIC unfractionated heparin is MEDICINE 61.0-112.0 seconds which corresponds to Anti-Xa 0.3-0.7 U/ml. Specimen Blood Performing Organization Address [facility]/[place] [address] PATHOLOGY AND [facility] * Prothrombin time with INR (03/05/2018 10:15 AM CDT) [facility] Prothrombin 14.1 12.0 - 15.0 sec [facility] DEPARTMENT time OF PATHOLOGY AND GENOMIC MEDICINE INR 1.1 [facility] DEPARTMENT Comment: OF PATHOLOGY The International Normalized AND GENOMIC Ratio (INR) is a therapeutic MEDICINE monitoring tool for patients who are stable on oral anticoagulant therapy. An INR of 2.0-3.0 is suggested for deep vein thrombosis/pulmonary embolism. Specimen Blood Performing Organization Address City/[facility] Phone Number [facility] DEPARTMENT OF [address] [place] [address] PATHOLOGY AND GENOMIC MEDICINE * D-dimer (03/05/2018 10:15 AM CDT) [facility] D-dimer 0.92 (H) 0.00 - 0.40 ug/mL [facility] DEPARTMENT Comment: FEU OF PATHOLOGY Units are [...] and malignancies. Specimen Blood Performing Organization Address City/[facility] Phone Number [facility] DEPARTMENT OF [address] [place] [address] PATHOLOGY AND GENOMIC MEDICINE * CBC with platelet and differential (03/05/2018 10:15 AM CDT) Pathologist [facility] WBC 6.28 4.50 - 11.00 k/uL [facility] DEPARTMENT OF PATHOLOGY AND GENOMIC MEDICINE RBC 3.96 (L) 4.20 - 5.50 m/uL [facility] DEPARTMENT OF PATHOLOGY AND GENOMIC MEDICINE HGB 11.5 (L) 12.0 - 16.0 g/dL [facility] DEPARTMENT OF PATHOLOGY AND GENOMIC MEDICINE HCT 35.4 (L) 37.0 - 47.0 % [facility] DEPARTMENT OF PATHOLOGY AND GENOMIC MEDICINE MCV 89.4 82.0 - 100.0 fL [facility] DEPARTMENT OF PATHOLOGY AND GENOMIC MEDICINE MCH 29.0 27.0 - 34.0 pg [facility] DEPARTMENT OF PATHOLOGY AND GENOMIC MEDICINE MCHC 32.5 31.0 - 37.0 g/dL [facility] DEPARTMENT OF PATHOLOGY AND GENOMIC MEDICINE RDW - SD 45.1 37.0 - 55.0 fL [facility] DEPARTMENT OF PATHOLOGY AND GENOMIC MEDICINE MPV 8.9 8.8 - 13.2 fL [facility] DEPARTMENT OF PATHOLOGY AND GENOMIC MEDICINE Platelet count 241 150 - 400 k/uL [facility] DEPARTMENT OF PATHOLOGY AND GENOMIC MEDICINE Nucleated RBC 0.00 /100 WBC [facility] DEPARTMENT OF PATHOLOGY AND GENOMIC MEDICINE Neutrophils 66.0 39.0 - 69.0 % [facility] DEPARTMENT OF PATHOLOGY AND GENOMIC MEDICINE Lymphocytes 24.8 (L) 25.0 - 45.0 % [facility] DEPARTMENT OF PATHOLOGY AND GENOMIC MEDICINE Monocytes 6.1 0.0 - 10.0 % [facility] DEPARTMENT OF PATHOLOGY AND GENOMIC MEDICINE Eosinophils 2.2 0.0 - 5.0 % [facility] DEPARTMENT OF PATHOLOGY AND GENOMIC MEDICINE Basophils 0.6 0.0 - 1.0 % [facility] DEPARTMENT OF PATHOLOGY AND GENOMIC MEDICINE Immature 0.3Comment: "Immature 0.0 - 1.0 % [facility] DEPARTMENT granulocytes granulocytes" (promyelocytes, OF PATHOLOGY myelocytes, metamyelocytes) AND GENOMIC MEDICINE Specimen Blood Performing Organization Address [facility] Phone Number [facility] [place] [address] PATHOLOGY AND GENOMIC MEDICINE * Type and screen (03/05/2018 10:15 AM CDT) ABO grouping O [facility] DEPARTMENT OF PATHOLOGY AND GENOMIC MEDICINE Rh type POS [facility] DEPARTMENT OF PATHOLOGY AND GENOMIC MEDICINE Antibody screen NEG [facility] DEPARTMENT (gel) OF PATHOLOGY AND GENOMIC MEDICINE Specimen Blood Performing Organization Address [facility] [place] [address] PATHOLOGY AND GENOMIC MEDICINE * B natriuretic peptide (03/05/2018 10:15 AM CDT) BNP 11 0 - 100 pg/mL [facility] DEPARTMENT OF PATHOLOGY AND GENOMIC MEDICINE Specimen Blood Performing Organization Address [facility] [place] [address] PATHOLOGY AND GENOMIC MEDICINE * Lipase level (03/05/2018 10:15 AM CDT) Lipase 20 13 - 60 U/L [facility] DEPARTMENT OF PATHOLOGY AND GENOMIC MEDICINE Specimen Plasma specimen Performing Organization Address City/[facility] Phone Number [facility] [place] [address] PATHOLOGY AND GENOMIC MEDICINE * Basic metabolic panel (03/05/2018 10:15 AM CDT) Sodium 141 135 - 148 mEq/L [facility] DEPARTMENT OF PATHOLOGY AND GENOMIC MEDICINE Potassium 4.5 3.5 - 5.0 mEq/L [facility] DEPARTMENT OF PATHOLOGY AND GENOMIC MEDICINE Chloride 103 98 - 112 mEq/L [facility] DEPARTMENT OF PATHOLOGY AND GENOMIC MEDICINE CO2 27 24 - 31 mEq/L [facility] DEPARTMENT OF PATHOLOGY AND GENOMIC MEDICINE Anion gap 11@ANIO 7 - 15 mEq/L [facility] DEPARTMENT OF PATHOLOGY AND GENOMIC MEDICINE BUN 10 6 - 20 mg/dL [facility] DEPARTMENT OF PATHOLOGY AND GENOMIC MEDICINE Creatinine 0.84 0.50 - 0.90 mg/dL [facility] DEPARTMENT OF PATHOLOGY AND GENOMIC MEDICINE Glucose 85 65 - 99 mg/dL [facility] DEPARTMENT OF PATHOLOGY AND GENOMIC MEDICINE Calcium 8.3 8.3 - 10.2 mg/dL [facility] DEPARTMENT OF PATHOLOGY AND GENOMIC MEDICINE Specimen Plasma specimen Performing Organization Address City/[facility] [place] [address] PATHOLOGY AND GENOMIC MEDICINE * XR Chest 1 Vw (03/05/2018 10:02 AM CDT) Specimen Narrative Performed At EXAM: [facility] XR CHEST 1 VW INDICATION: Chest painACS suspected COMPARISON: None. IMPRESSION: Surgical clips right upper quadrant. Minimal linear opacity lateral aspect left lower lung, discoid atelectasis versus scar/fibrosis. No consolidation, pleural effusion, pneumothorax. Heart size is normal. Minimal degenerative changes thoracic spine. [facility]-[id number] Procedure Note Interface, Radiology Results Incoming - 03/05/2018 10:06 AM CDT EXAM: XR CHEST 1 VW INDICATION: Chest pain ACS suspected COMPARISON: None. IMPRESSION: Surgical clips right upper quadrant. Minimal linear opacity lateral aspect left lower lung, discoid atelectasis versus scar/fibrosis. No consolidation, pleural effusion, pneumothorax. Heart size is normal. Minimal degenerative changes thoracic spine. [facility]-[id number] Performing Organization Address City/[facility]/Zipcode Phone Number [address] [address] * XR Abdomen 1 Vw (03/05/2018 10:02 AM CDT) Specimen Narrative Performed At Examination:XR ABDOMEN 1 VW [facility] Clinical history:"Abd painunspecified" Comparison: None IMPRESSION:The bowel gas pattern is nonspecific. Densities compatible with anterior abdominal wall mesh are noted. There is no evidence of acute disease within the imaged portions of both lung bases. The imaged bones appear to be within normal limits. Surgical clips are seen in the right upper quadrant. [id number] Procedure Note Hm Interface, Radiology Results Incoming [...] are seen in the right upper quadrant. [id number] Performing Organization Address City/[facility] Phone Number [facility] [address] [place] [address] * ECG 12 lead (03/05/2018 9:02 AM CDT) Ventricular 94 [facility] rate Atrial rate 94 [facility] MD interval 194 [facility] QRSD interval 128 [facility] QT interval 388 [facility] QTC interval 485 [facility] P axis 1 50 [facility] QRS axis 1 22 [facility] T wave axis 48 [facility] EKG impression Normal sinus [facility] rhythm-Nonspecific intraventricular block-Abnormal ECG-No previous ECGs available- Specimen Performing Organization Address City/[facility] Phone Number [facility] MUSE [address] [place] [address] after 02/25/2018 Insurance Type Payer Benefit Subscriber ID Effective Phone Address Plan / Dates Group HMO [employer] xxxxxxxx [id number] [id number] Advance Directives For more information, please contact: [phone] 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
--- OUTSIDE RECORDS SUMMARY | 2019-02-26 12:18 | XMS REPORT | Clinical Summary ---
Author Author [facility] Address Unknown Phone Unavailable Care Team Providers Care Scientist Engineer Name Role Phone Sharpless PCP Unavailable Allergies [...] Not on file Results Not on fileafter 02/25/2018 Insurance Payer Benefit Subscriber ID Type Phone Address Plan / Group MEDICAID - MEDICAID MGD MEDICAID xxxxxxxxx Medicaid CARE [employer] Non-Contra cted
--- OUTSIDE RECORDS SUMMARY | 2019-02-26 12:19 | XMS REPORT ---
Author Author Admin, [place] Organization [facility] Address [address] [place] [address] Phone Allergies, Adverse Reactions, Alerts Allergy Name [...] Generic Name NDC Status Provider Patient Instruction ABILIFY 10 MG ORAL TABLET Take one tablet By Mouth at bedtime ARIPIPRAZOLE 03546394141 Active Bogdan Hand MD Active LEXAPRO 10 MG ORAL TABLET Take one tablet By Mouth daily with the 20mg tablet ESCITALOPRAM OXALATE 02850718944 Active Bogdan Hand MD Active KLONOPIN 2 MG ORAL TABLET Take one tablet By Mouth daily as needed for anxiety CLONAZEPAM 90244230399 Active Bogdan Hand MD Active TRAZODONE HCL 300 MG ORAL TABLET Take one tablet By Mouth at bedtime TRAZODONE HCL 03889253452 Active Bogdan Hand MD Active AMITRIPTYLINE HCL 150 MG ORAL TABLET Take two tablets By Mouth at bedtime AMITRIPTYLINE HCL 08320004502 Active Bogdan Hand MD Active PRAZOSIN HCL 5 MG ORAL CAPSULE Take 3 capsules By Mouth at bedtime PRAZOSIN HCL 30649314375 Active Bogdan Hand MD Active LEXAPRO 20 MG ORAL TABLET Take one tablet By Mouth daily with the 10mg tablet ESCITALOPRAM OXALATE 67610023349 Active Bogdan Hand MD Active VALIUM 10 MG ORAL TABLET Take one tablet By Mouth at bedtime for breakthrough anxiety DIAZEPAM 01877976822 Active Bogdan Hand MD Active WELLBUTRIN XL 150 MG ORAL TABLET EXTENDED RELEASE 24 HOUR Take one tablet By Mouth daily WELLBUTRIN XL 150 MG ORAL TABLET EXTENDED RELEASE 24 HOUR BUPROPION HCL Inactive LUNESTA 3 MG ORAL TABLET Take one tablet By Mouth at bedtime LUNESTA 3 MG ORAL TABLET 047664 ESZOPICLONE Inactive ZYPREXA 10 MG ORAL TABLET Take one tablet By Mouth daily ZYPREXA 10 MG ORAL TABLET 349970 OLANZAPINE Inactive LUNESTA 3 MG ORAL TABLET Take one tablet at bedtime LUNESTA 3 MG ORAL TABLET 526110 ESZOPICLONE Inactive DIAZEPAM 5 MG TABS TAKE 1 TABLET BY MOUTH AT BEDTIME NEEDED FOR BREAKTHROUGH ANXIETY DIAZEPAM 5 MG TABS 476526 DIAZEPAM Inactive WELLBUTRIN XL 150 MG ORAL TABLET EXTENDED RELEASE 24 HOUR Take one tablet By Mouth daily BUPROPION HCL 09574256756 No Longer Active Bogdan Hand MD Active LUNESTA 3 MG ORAL TABLET Take one tablet By Mouth at bedtime ESZOPICLONE 56461638513 No Longer Active Bogdan Hand MD Active TEMAZEPAM 30 MG ORAL CAPSULE Take one capsule By Mouth By Mouth at bedtime TEMAZEPAM 37017503808 No Longer Active Bogdan Hand MD Active ZYPREXA 10 MG ORAL TABLET Take one tablet By Mouth daily OLANZAPINE 60606513514 No Longer Active Bogdan Hand MD Active LORAZEPAM 2 MG ORAL TABLET Take one tablet By Mouth TID as needed for anxiety LORAZEPAM 49514317870 No Longer Active Bogdan Hand MD Active LUNESTA 3 MG ORAL TABLET Take one tablet at bedtime ESZOPICLONE 99520364697 No Longer Active Bogdan Hand MD Active DIAZEPAM 5 MG TABS TAKE 1 TABLET BY MOUTH AT BEDTIME NEEDED FOR BREAKTHROUGH ANXIETY DIAZEPAM 19414708740 No Longer Active Bogdan Hand MD Active Vital Signs Date Name Value Unit Range Description blood pressure, diastolic 78 mm[Hg] BP siddiqui blood pressure, systolic 107 mm[Hg] BP sys height E&M 64 [in_us] Bdy height pulse rate E&M 102 /min Heart rate weight E&M 232.38 [lb_av] Weight Measured blood pressure, diastolic 66 [...] rate weight E&M 224 [lb_av] Weight Measured Encounters Date Encounter Provider Code Facility 08:32:41 CDT Est Patient Exp Problem - 52692 Bogdan Hand MD CPT-58018 [facility] 08:20:15 CDT Est Patient Exp Problem - 28360 Bogdan Hand MD CPT-73776 [facility] 14:54:55 FRUIT TESTER Est Patient Detailed - 38174 Bogdan Hand MD CPT-21161 [facility] 09:55:59 FRUIT TESTER Est Patient Detailed - 11490 Bogdan Hand MD CPT-42965 [facility] 10:20:33 FRUIT TESTER Est Patient Exp Problem - 28333 Bogdan Hand MD CPT-33806 [facility] 10:36:05 FRUIT TESTER Est Patient Detailed - 24182 Bogdan Hand MD CPT-24439 [facility] 11:34:27 FRUIT TESTER Est Patient Detailed - 28900 Bogdan Hand MD CPT-54138 [facility] 10:47:07 CDT Est Patient Exp Problem - 41364 Bogdan Hand MD CPT-84486 [facility] 08:46:49 CDT Est Patient Exp Problem - 35059 Bogdan Hand MD CPT-73676 [facility] 08:33:08 CDT Est Patient Detailed - 37873 Bogdan Hand MD CPT-54406 [facility] 08:31:14 CDT Est Patient Detailed - 52010 Bogdan Hand MD CPT-47967 [facility] 13:41:13 CDT Est Patient Detailed - 39714 Bogdan Hand MD CPT-81946 [facility] 19:16:18 CDT Est Patient Detailed - 55040 Bogdan Hand MD CPT-44839 [facility] 09:08:54 CDT Est Patient Detailed - 91959 Bogdan Hand MD CPT-29500 [facility] 08:21:45 CDT Est Patient Detailed - 05277 Bogdan Hand MD CPT-92638 [facility] Procedures Code Procedure Name Date Entry Date Standard Description CPT-17780 Psychotherapy 45 (38-52*) min - 29234 (with patient and/or family member) 14:56:48 CDT CPT-66450 Psychotherapy 45 (38-52*) min - 87281 (with patient and/or family member) 13:05:22 CDT CPT-32946 Diagnostic evaluation (no medical) - 39178 10:06:21 CDT CPT-14989 Diagnostic evaluation with medical - 79500 20:46:14 CDT
--- OUTSIDE RECORDS SUMMARY | 2019-02-26 12:19 | XMS REPORT | Continuity of Care Document ---
Author Author [facility] Organization [facility] Address Unknown Phone Unavailable Care Team Providers Care Clam Sorter Name Role Phone indico Information Exchange Unavailable Unavailable Problems Problem Status Onset Date Classification Date Reported Comments Source DEPRESSIVE DISORDER, MAJOR, RECURRENT EPISODE, W/ PSYCHOTIC FEATURES Active 10/21/2017 Diagnosis 01/18/2019 [facility] PTSD Active 08/28/2017 Diagnosis 01/18/2019 [facility] PANIC DISORDER Active 08/28/2017 Diagnosis 01/18/2019 [facility] INSOMNIA DISORDER, PERSISTENT Active 08/28/2017 Diagnosis 01/18/2019 [facility] Acute pancreatitis Active Problem 11/12/2018 [facility] Abdominal pain Active Problem 11/12/2018 [facility] Calculus of kidney Active Problem 11/12/2018 [facility] Medications Medication Details Route Status Patient Instructions Ordering Provider Order Date Source ABILIFY 10 MG ORAL TABLET Take one tablet By Mouth at bedtime Active Take one tablet By Mouth at bedtime 11/17/2018 [facility] LEXAPRO 10 MG ORAL TABLET Take one [...] bedtime 04/14/2018 [facility] Levofloxacin (Levaquin) 500 Mg Tablet, 500 Mg Oral Daily for 10 Active [facility] 03/04/2018 [facility] Levofloxacin (Levaquin) 500 Mg Tablet Daily for 10 Active [facility] 03/04/2018 [facility] Levofloxacin (Levaquin) 500 Mg Tablet Daily for 10 Active [facility] 03/04/2018 [facility] Cephalexin Monohydrate (Keflex) 500 Mg Capsule, 500 Mg Oral Every 6 Hours Active [facility] 01/21/2018 [facility] Prednisone 20 Mg Tab, 40 Mg Oral Daily Active [facility] 01/21/2018 [facility] Cephalexin Monohydrate (Keflex) 500 Mg Capsule Every 6 Hours Active [facility] 01/21/2018 [facility] Prednisone 20 Mg Tab Daily Active [facility] 01/21/2018 [facility] Cephalexin Monohydrate (Keflex) 500 Mg Capsule Every 6 Hours Active [facility] 01/21/2018 [facility] Prednisone 20 Mg Tab Daily Active [facility] 01/21/2018 [facility] WELLBUTRIN XL 150 MG ORAL TABLET EXTENDED [...] 8 Hours as needed for Pain Active [facility] 08/24/2017 [facility] Cyclobenzaprine Hcl 10 Mg Tablet, 5 Mg Oral Three Times A Day Active [facility] 08/24/2017 [facility] Ondansetron (Zofran Odt) 4 Mg Tab.rapdis, 4 Mg Oral Q4- 6H Prn Active [facility] 08/24/2017 [facility] Polyethylene Glycol 3350 (Miralax) 17 Gm Powd.pack, 17 Gm Oral Twice A Day Active [facility] 08/24/2017 [facility] Senna Fruit/Conc/Doc Sod/Bisa 1 Ea Tab, 2 Ea Oral Bedtime Active [facility] 08/24/2017 [facility] Acetaminophen With Codeine (Tylenol With Codeine #3 Tablet) 1 Each Tablet, 300 Mg Oral Every 8 Hours as needed for Pain Active [facility] 08/24/2017 [facility] Cyclobenzaprine Hcl 10 Mg Tablet, 5 Mg Oral Three Times A Day Active [facility] 08/24/2017 [facility] Ondansetron (Zofran Odt) 4 Mg Tab.rapdis, 4 Mg Oral Q4- 6H Prn Active [facility] 08/24/2017 [facility] Polyethylene Glycol 3350 (Miralax) 17 Gm Powd.pack, 17 Gm Oral Twice A Day Active [facility] 08/24/2017 [facility] Amitriptyline Hcl 150 Mg Tablet Bedtime Active [facility] Diazepam 10 Mg Tablet Bedtime Active [facility] Clonazepam 2 Mg Tablet Bedtime Active [facility] DIAZEPAM TAKE 1 TABLET BY MOUTH AT BEDTIME NEEDED FOR BREAKTHROUGH ANXIETY Active TAKE 1 TABLET BY MOUTH AT BEDTIME NEEDED FOR BREAKTHROUGH ANXIETY [facility] Allergies, Adverse Reactions, Alerts Substance Category Reaction Severity Reaction type Status Date Reported Comments Source Codeine Mild Allergy to Substance Active 08/08/2018 [facility] Tramadol Unknown Allergy to Substance Active 08/08/2018 [facility] Immunizations No Data Provided for This Section Results Order Name Results Value Reference Range Date Interpretation Comments Source Blood leukocytes automated count (number/volume) 5.53 4.8 - 10.8 11/11/2018 [facility] Blood erythrocytes automated count (number/volume) 3.97 3.6 - 5.1 11/11/2018 [facility] Blood hemoglobin measurement (moles/volume) 11.7 12.0 - 16.0 11/11/2018 [facility] Automated blood hematocrit (volume fraction) 35.1 34.2 - 44.1 11/11/2018 [facility] Automated erythrocyte mean corpuscular volume 88.4 81 - 99 11/11/2018 [facility] Automated erythrocyte mean corpuscular hemoglobin (mass per erythrocyte) 29.5 28 - 32 11/11/2018 [facility] Automated erythrocyte mean corpuscular hemoglobin concentration measurement (mass/volume) 33.3 31 - 35 11/11/2018 [facility] RDW BldCo-Rto 13.5 11.7 - 14.4 11/11/2018 [facility] Automated blood platelet count (count/volume) 205 140 - 360 11/11/2018 [facility] Automated blood segmented neutrophil count as percentage of total leukocytes 49.1 38.7 - 80.0 11/11/2018 [facility] Automated blood lymphocyte count as percentage ot total leukocytes 39.6 18.0 - 39.1 11/11/2018 [facility] Automated blood monocyte count as percentage of total leukocytes 8.0 4.4 - 11.3 11/11/2018 [facility] Automated blood eosinophil count as percentage of total leukocytes 2.4 0.0 - 6.0 11/11/2018 [facility] Automated blood basophil count as percentage of total leukocytes 0.9 0.0 - 1.0 11/11/2018 [facility] IM GRANULOCYTES % 0.0 0.0 - 1.0 11/11/2018 [facility] Automated blood neutrophil count 2.7 2.1 - 6.9 11/11/2018 [facility] Blood lymphocytes count (number/volume) 2.2 1.0 - 3.2 11/11/2018 [facility] Blood monocytes automated count (number/volume) 0.4 0.2 - 0.8 11/11/2018 [facility] Automated blood eosinophil count 0.1 0.0 - 0.4 11/11/2018 [facility] Automated blood basophil count (count/volume) 0.1 0.0 - 0.1 11/11/2018 [facility] Absolute Immature Granulocyte (auto 0 0 - 0.1 11/11/2018 [facility] Serum or plasma sodium measurement (moles/volume) 134 136 - 145 11/11/2018 [facility] Serum or plasma potassium measurement (moles/volume) 3.9 3.5 - 5.1 11/11/2018 [facility] Serum or plasma chloride measurement (moles/volume) 106 98 - 107 11/11/2018 [facility] Serum or plasma carbon dioxide, total measurement (moles/volume) 22 22 - 29 11/11/2018 [facility] Serum or plasma anion gap 9.9 8 - 16 11/11/2018 [facility] Serum or plasma urea nitrogen measurement (mass/volume) 9 7 - 26 11/11/2018 [facility] Serum or plasma creatinine measurement (mass/volume) 0.84 0.57 - 1.11 11/11/2018 [facility] Serum or plasma urea nitrogen/creatinine mass ratio 11 6 - 25 11/11/2018 [facility] Estimated glomerular filtration rate (GFR) determination > 60 60 11/11/2018 [facility] Glucose measurement 89 74 - 118 11/11/2018 [facility] Serum or plasma calcium measurement (mass/volume) 8.3 8.4 - 10.2 11/11/2018 [facility] Hemoglobin A1c Percent 5.3 4.0 - 7.0 11/10/2018 [facility] Serum or plasma triglyceride measurement (mass/volume) 122 0 - 149 11/10/2018 [facility] Serum or plasma cholesterol measurement (mass/volume) 189 0 - 199 11/10/2018 [facility] Serum or plasma cholesterol in LDL measurement (mass/volume) 108 60 - 130 11/10/2018 [facility] Serum or plasma cholesterol in HDL measurement (mass/volume) 57 40 - 60 11/10/2018 [facility] Serum or plasma total cholesterol/cholesterol in HDL mass ratio 3.3 3.0 - 3.6 11/10/2018 [facility] Prothrombin time (PT) in platelet poor plasma by coagulation assay 12.7 11.9 - 14.5 11/09/2018 [facility] INR in Platelet poor plasma by Coagulation assay 0.91 11/09/2018 [facility] Activated partial thromboplastin time (aPTT) in platelet poor plasma bycoagulation assay 29.2 23.8 - 35.5 11/09/2018 [facility] Urine color determination BROWN YELLOW 11/09/2018 [facility] Urine clarity CLOUDY CLEAR 11/09/2018 [facility] Specific gravity of Urine by Test strip 1.020 1.010 - 1.025 11/09/2018 [facility] Urine pH measurement by automated test strip 6.5 5 - 7 11/09/2018 [facility] Urine leukocyte esterase detection by automated test strip TRACE NEGATIVE 11/09/2018 [facility] Urine nitrite detection by automated test strip NEGATIVE NEGATIVE 11/09/2018 [facility] Urine protein detection by automated test strip 2+ NEGATIVE 11/09/2018 [facility] Urine glucose detection by automated test strip NEGATIVE NEGATIVE 11/09/2018 [facility] Urine ketones detection by automated test strip NEGATIVE NEGATIVE 11/09/2018 [facility] Urine urobilinogen measurement by test strip (mass/volume) 0.2 0.2 - 1 11/09/2018 [facility] Urine total bilirubin detection SMALL NEGATIVE 11/09/2018 [facility] Urine erythrocytes detection 3+ NEGATIVE 11/09/2018 [facility] Automated urine sediment leukocyte count by microscopy (number/high power field) 21-50 0 - 5 11/09/2018 [facility] Erythrocytes detection in urine sediment by light microscopy >50 0 - 5 11/09/2018 [facility] Bacteria detection in urine sediment by light microscopy FEW NONE 11/09/2018 [facility] Epithelial cells detection in urine sediment by light microscopy FEW NONE 11/09/2018 [facility] Serum or plasma magnesium measurement (mass/volume) 2.1 1.3 - 2.1 11/09/2018 [facility] Serum or plasma total bilirubin measurement (mass/volume) 0.3 0.2 - 1.2 11/09/2018 [facility] Aspartate Amino Transf (AST/SGOT) 79 5 - 34 11/09/2018 [facility] Serum or plasma alanine aminotransferase measurement (enzymatic activity/volume) 111 0 - 55 11/09/2018 [facility] Serum or plasma protein measurement (mass/volume) 6.6 6.5 - 8.1 11/09/2018 [facility] Serum or plasma albumin measurement (mass/volume) 3.5 3.5 - 5.0 11/09/2018 [facility] Plasma globulin measurement (mass/volume) 3.1 2.3 - 3.5 11/09/2018 [facility] Serum or plasma albumin/globulin mass ratio 1.1 0.8 - 2.0 11/09/2018 [facility] Serum or plasma alkaline phosphatase measurement (enzymatic activity/volume) 104 40 - 150 11/09/2018 [facility] Serum or plasma amylase measurement (enzymatic activity/volume) 57 25 - 125 11/09/2018 [facility] Serum or plasma lipase measurement (enzymatic activity/volume) 26 8 - 78 11/09/2018 [facility] Urine color determination YELLOW YELLOW 10/01/2018 [facility] Urine clarity SL CLOUDY CLEAR 10/01/2018 [facility] Specific gravity of Urine by Test strip 1.015 1.010 - 1.025 10/01/2018 [facility] Urine pH measurement by automated test strip 6 5 - 7 10/01/2018 [facility] Urine leukocyte esterase detection by dipstick TRACE NEGATIVE 10/01/2018 [facility] Urine nitrite detection NEGATIVE NEGATIVE 10/01/2018 [facility] Urine protein measurement by test strip (mass/volume) NEGATIVE NEGATIVE 10/01/2018 [facility] Urine glucose detection NEGATIVE NEGATIVE 10/01/2018 [facility] Urine ketones detection by automated test strip NEGATIVE NEGATIVE 10/01/2018 [facility] Urine urobilinogen measurement by test strip (mass/volume) 0.2 0.2 - 1 10/01/2018 [facility] Urine total bilirubin measurement (mass/volume) NEGATIVE NEGATIVE 10/01/2018 [facility] Urine erythrocytes detection NEGATIVE NEGATIVE 10/01/2018 [facility] Automated urine sediment leukocyte count by microscopy (number/high power field) 6-10 0 - 5 10/01/2018 [facility] Erythrocytes detection in urine sediment by light microscopy NONE 0 - 5 10/01/2018 [facility] Bacteria detection in urine sediment by light microscopy FEW NONE 10/01/2018 [facility] Epithelial cells detection in urine sediment by light microscopy FEW NONE 10/01/2018 [facility] Blood leukocytes automated count (number/volume) 4.72 4.8 - 10.8 08/05/2018 [facility] Blood erythrocytes automated count (number/volume) 4.19 3.6 - 5.1 08/05/2018 [facility] Blood hemoglobin measurement (moles/volume) 12.1 12.0 - 16.0 08/05/2018 [facility] Automated blood hematocrit (volume fraction) 36.4 34.2 - 44.1 08/05/2018 [facility] Automated erythrocyte mean corpuscular volume 86.9 81 - 99 08/05/2018 [facility] Automated erythrocyte mean corpuscular hemoglobin (mass per erythrocyte) 28.9 28 - 32 08/05/2018 [facility] Automated erythrocyte mean corpuscular hemoglobin concentration measurement (mass/volume) 33.2 31 - 35 08/05/2018 [facility] RDW BldCo-Rto 13.8 11.7 - 14.4 08/05/2018 [facility] Automated blood platelet count (count/volume) 270 140 - 360 08/05/2018 [facility] Automated blood segmented neutrophil count as percentage of total leukocytes 65.9 38.7 - 80.0 08/05/2018 [facility] Automated blood lymphocyte count as percentage ot total leukocytes 26.1 18.0 - 39.1 08/05/2018 [facility] Automated blood monocyte count as percentage of total leukocytes 5.5 4.4 - 11.3 08/05/2018 [facility] Automated blood eosinophil count as percentage of total leukocytes 1.9 0.0 - 6.0 08/05/2018 [facility] Automated blood basophil count as percentage of total leukocytes 0.6 0.0 - 1.0 08/05/2018 [facility] IM GRANULOCYTES % 0.0 0.0 - 1.0 08/05/2018 [facility] Automated blood neutrophil count 3.1 2.1 - 6.9 08/05/2018 [facility] Blood lymphocytes count (number/volume) 1.2 1.0 - 3.2 08/05/2018 [facility] Blood monocytes automated count (number/volume) 0.3 0.2 - 0.8 08/05/2018 [facility] Automated blood eosinophil count 0.1 0.0 - 0.4 08/05/2018 [facility] Automated blood basophil count (count/volume) 0.0 0.0 - 0.1 08/05/2018 [facility] Absolute Immature Granulocyte (auto 0 0 - 0.1 08/05/2018 [facility] Serum or plasma sodium measurement (moles/volume) 135 136 - 145 08/05/2018 [facility] Serum or plasma potassium measurement (moles/volume) 3.5 3.5 - 5.1 08/05/2018 [facility] Serum or plasma chloride measurement (moles/volume) 106 98 - 107 08/05/2018 [facility] Serum or plasma carbon dioxide, total measurement (moles/volume) 22 22 - 29 08/05/2018 [facility] Serum or plasma anion gap 10.5 8 - 16 08/05/2018 [facility] Serum or plasma urea nitrogen measurement (mass/volume) 7 7 - 26 08/05/2018 [facility] Serum or plasma creatinine measurement (mass/volume) 0.83 0.57 - 1.11 08/05/2018 [facility] Serum or plasma urea nitrogen/creatinine mass ratio 8 6 - 25 08/05/2018 [facility] Estimated glomerular filtration rate (GFR) determination > 60 60 08/05/2018 [facility] Glucose measurement 114 74 - 118 08/05/2018 [facility] Serum or plasma calcium measurement (mass/volume) 8.6 8.4 - 10.2 08/05/2018 [facility] Serum or plasma total bilirubin measurement (mass/volume) 0.2 0.2 - 1.2 08/05/2018 [facility] Aspartate Amino Transf (AST/SGOT) 16 5 - 34 08/05/2018 [facility] Serum or plasma alanine aminotransferase measurement (enzymatic activity/volume) 21 0 - 55 08/05/2018 [facility] Serum or plasma protein measurement (mass/volume) 6.0 6.5 - 8.1 08/05/2018 [facility] Serum or plasma albumin measurement (mass/volume) 3.2 3.5 - 5.0 08/05/2018 [facility] Plasma globulin measurement (mass/volume) 2.8 2.3 - 3.5 08/05/2018 [facility] Serum or plasma albumin/globulin mass ratio 1.1 0.8 - 2.0 08/05/2018 [facility] Serum or plasma alkaline phosphatase measurement (enzymatic activity/volume) 83 40 - 150 08/05/2018 [facility] Serum or plasma lipase measurement (enzymatic activity/volume) 29 8 - 78 08/05/2018 [facility] Serum or plasma carbon dioxide, total measurement (moles/volume) 22 22 - 29 08/05/2018 [facility] Serum or plasma anion gap 10.5 8 - 16 08/05/2018 [facility] Serum or plasma urea nitrogen measurement (mass/volume) 7 7 - 26 08/05/2018 [facility] Serum or plasma creatinine measurement (mass/volume) 0.83 0.57 - 1.11 08/05/2018 [facility] Serum or plasma urea nitrogen/creatinine mass ratio 8 6 - 25 08/05/2018 [facility] Estimated glomerular filtration rate (GFR) determination > 60 60 08/05/2018 [facility] Glucose measurement 114 74 - 118 08/05/2018 [facility] Serum or plasma calcium measurement (mass/volume) 8.6 8.4 - 10.2 08/05/2018 [facility] Serum or plasma total bilirubin measurement (mass/volume) 0.2 0.2 - 1.2 08/05/2018 [facility] Aspartate Amino Transf (AST/SGOT) 16 5 - 34 08/05/2018 [facility] Serum or plasma alanine aminotransferase measurement (enzymatic activity/volume) 21 0 - 55 08/05/2018 [facility] Serum or plasma protein measurement (mass/volume) 6.0 6.5 - 8.1 08/05/2018 [facility] Serum or plasma albumin measurement (mass/volume) 3.2 3.5 - 5.0 08/05/2018 [facility] Plasma globulin measurement (mass/volume) 2.8 2.3 - 3.5 08/05/2018 [facility] Serum or plasma albumin/globulin mass ratio 1.1 0.8 - 2.0 08/05/2018 [facility] Serum or plasma alkaline phosphatase measurement (enzymatic activity/volume) 83 40 - 150 08/05/2018 [facility] Serum or plasma lipase measurement (enzymatic activity/volume) 29 8 - 78 08/05/2018 [facility] Blood leukocytes automated count (number/volume) 4.92 4.8 - 10.8 06/15/2018 [facility] Serum or plasma amylase measurement (enzymatic activity/volume) 101 25 - 125 06/15/2018 [facility] Serum or plasma amylase measurement (enzymatic activity/volume) 101 25 - 125 06/15/2018 [facility] Automated blood hematocrit (volume fraction) 38.1 34.2 - 44.1 06/15/2018 [facility] Automated erythrocyte mean corpuscular volume 88.4 81 - 99 06/15/2018 [facility] Automated erythrocyte mean corpuscular hemoglobin (mass per erythrocyte) 29.5 28 - 32 06/15/2018 [facility] Automated erythrocyte mean corpuscular hemoglobin concentration measurement (mass/volume) 33.3 31 - 35 06/15/2018 [facility] RDW BldCo-Rto 13.5 11.7 - 14.4 06/15/2018 [facility] Automated blood platelet count (count/volume) 297 140 - 360 06/15/2018 [facility] Automated blood segmented neutrophil count as percentage of total leukocytes 60.6 38.7 - 80.0 06/15/2018 [facility] Automated blood lymphocyte count as percentage ot total leukocytes 28.9 18.0 - 39.1 06/15/2018 [facility] Automated blood monocyte count as percentage of total leukocytes 6.7 4.4 - 11.3 06/15/2018 [facility] Automated blood eosinophil count as percentage of total leukocytes 1.6 0.0 - 6.0 06/15/2018 [facility] Automated blood basophil count as percentage of total leukocytes 1.0 0.0 - 1.0 06/15/2018 [facility] IM GRANULOCYTES % 1.2 0.0 - 1.0 06/15/2018 [facility] Automated blood neutrophil count 3.0 2.1 - 6.9 06/15/2018 [facility] Blood lymphocytes count (number/volume) 1.4 1.0 - 3.2 06/15/2018 [facility] Blood monocytes automated count (number/volume) 0.3 0.2 - 0.8 06/15/2018 [facility] Automated blood eosinophil count 0.1 0.0 - 0.4 06/15/2018 [facility] Automated blood basophil count (count/volume) 0.1 0.0 - 0.1 06/15/2018 [facility] Absolute Immature Granulocyte (auto 0.06 0 - 0.1 06/15/2018 [facility] Urine color determination YELLOW YELLOW 06/15/2018 [facility] Urine clarity CLEAR CLEAR 06/15/2018 [facility] Specific gravity of Urine by Test strip 1.010 1.010 - 1.025 06/15/2018 [facility] Urine pH measurement by automated test strip 6 5 - 7 06/15/2018 [facility] Urine leukocyte esterase detection by dipstick TRACE NEGATIVE 06/15/2018 [facility] Urine nitrite detection NEGATIVE NEGATIVE 06/15/2018 [facility] Urine protein measurement by test strip (mass/volume) NEGATIVE NEGATIVE 06/15/2018 [facility] Urine glucose detection NEGATIVE NEGATIVE 06/15/2018 [facility] Urine ketones detection by automated test strip NEGATIVE NEGATIVE 06/15/2018 [facility] Urine urobilinogen measurement by test strip (mass/volume) 0.2 0.2 - 1 06/15/2018 [facility] Urine total bilirubin measurement (mass/volume) NEGATIVE NEGATIVE 06/15/2018 [facility] Urine erythrocytes detection NEGATIVE NEGATIVE 06/15/2018 [facility] Automated urine sediment leukocyte count by microscopy (number/high power field) 6-10 0 - 5 06/15/2018 [facility] Erythrocytes detection in urine sediment by light microscopy NONE 0 - 5 06/15/2018 [facility] Bacteria detection in urine sediment by light microscopy MODERATE NONE 06/15/2018 [facility] Epithelial cells detection in urine sediment by light microscopy RARE NONE 06/15/2018 [facility] Serum or plasma sodium measurement (moles/volume) 138 136 - 145 06/15/2018 [facility] Serum or plasma potassium measurement (moles/volume) 3.7 3.5 - 5.1 06/15/2018 [facility] Serum or plasma chloride measurement (moles/volume) 108 98 - 107 06/15/2018 [facility] Serum or plasma carbon dioxide, total measurement (moles/volume) 23 22 - 29 06/15/2018 [facility] Serum or plasma anion gap 10.7 8 - 16 06/15/2018 [facility] Serum or plasma urea nitrogen measurement (mass/volume) 9 7 - 26 06/15/2018 [facility] Serum or plasma creatinine measurement (mass/volume) 0.99 0.57 - 1.11 06/15/2018 [facility] Serum or plasma urea nitrogen/creatinine mass ratio 9 6 - 25 06/15/2018 [facility] Estimated glomerular filtration rate (GFR) determination > 60 60 06/15/2018 [facility] Glucose measurement 76 74 - 118 06/15/2018 [facility] Serum or plasma calcium measurement (mass/volume) 8.5 8.4 - 10.2 06/15/2018 [facility] Serum or plasma total bilirubin measurement (mass/volume) 0.2 0.2 - 1.2 06/15/2018 [facility] Aspartate Amino Transf (AST/SGOT) 17 5 - 34 06/15/2018 [facility] Serum or plasma alanine aminotransferase measurement (enzymatic activity/volume) 19 0 - 55 06/15/2018 [facility] Serum or plasma protein measurement (mass/volume) 6.3 6.5 - 8.1 06/15/2018 [facility] Serum or plasma albumin measurement (mass/volume) 3.6 3.5 - 5.0 06/15/2018 [facility] Plasma globulin measurement (mass/volume) 2.7 2.3 - 3.5 06/15/2018 [facility] Serum or plasma albumin/globulin mass ratio 1.3 0.8 - 2.0 06/15/2018 [facility] Serum or plasma alkaline phosphatase measurement (enzymatic activity/volume) 87 40 - 150 06/15/2018 [facility] Serum or plasma amylase measurement (enzymatic activity/volume) 101 25 - 125 06/15/2018 [facility] Serum or plasma lipase measurement (enzymatic activity/volume) 30 8 - 78 06/15/2018 [facility] Urine opiates screening test NEGATIVE NEGATIVE 06/15/2018 [facility] Barbiturates screen, urine NEGATIVE NEGATIVE 06/15/2018 [facility] Urine phencyclidine detection by screening method NEGATIVE NEGATIVE 06/15/2018 [facility] Urine amphetamines detection by screen method > 1000 ng/mL NEGATIVE NEGATIVE 06/15/2018 [facility] Urine Methamphetamines Screen NEGATIVE NEGATIVE 06/15/2018 [facility] Urine benzodiazepines detection by screening method POSITIVE NEGATIVE 06/15/2018 [facility] Urine cocaine measurement (mass/volume) POSITIVE NEGATIVE 06/15/2018 [facility] Urine cannabinoids detection by screening method POSITIVE NEGATIVE 06/15/2018 [facility] Urine methadone screen NEGATIVE NEGATIVE 06/15/2018 [facility] Barbiturates screen, urine NEGATIVE NEGATIVE 06/15/2018 [facility] Urine phencyclidine detection by screening method NEGATIVE NEGATIVE 06/15/2018 [facility] Urine amphetamines detection by screen method > 1000 ng/mL NEGATIVE NEGATIVE 06/15/2018 [facility] Urine Methamphetamines Screen NEGATIVE NEGATIVE 06/15/2018 [facility] Urine benzodiazepines detection by screening method POSITIVE NEGATIVE 06/15/2018 [facility] Urine cocaine measurement (mass/volume) POSITIVE NEGATIVE 06/15/2018 [facility] Urine cannabinoids detection by screening method POSITIVE NEGATIVE 06/15/2018 [facility] Urine methadone screen NEGATIVE NEGATIVE 06/15/2018 [facility] Urine methadone screen NEGATIVE NEGATIVE 06/15/2018 [facility] Urine methadone screen NEGATIVE NEGATIVE 06/15/2018 [facility] Urine opiates screening test NEGATIVE NEGATIVE 06/15/2018 [facility] Serum or plasma magnesium measurement (mass/volume) 1.9 1.3 - 2.1 06/03/2018 [facility] Serum or plasma magnesium measurement (mass/volume) 1.9 1.3 - 2.1 06/03/2018 [facility] Blood leukocytes automated count (number/volume) 5.42 4.8 - 10.8 06/03/2018 [facility] Blood erythrocytes automated count (number/volume) 4.21 3.6 - 5.1 06/03/2018 [facility] Blood hemoglobin measurement (moles/volume) 12.5 12.0 - 16.0 06/03/2018 [facility] Automated blood hematocrit (volume fraction) 36.6 34.2 - 44.1 06/03/2018 [facility] Automated erythrocyte mean corpuscular volume 86.9 81 - 99 06/03/2018 [facility] Automated erythrocyte mean corpuscular hemoglobin (mass per erythrocyte) 29.7 28 - 32 06/03/2018 [facility] Automated erythrocyte mean corpuscular hemoglobin concentration measurement (mass/volume) 34.2 31 - 35 06/03/2018 [facility] RDW BldCo-Rto 13.3 11.7 - 14.4 06/03/2018 [facility] Automated blood platelet count (count/volume) 237 140 - 360 06/03/2018 [facility] Automated blood segmented neutrophil count as percentage of total leukocytes 65.3 38.7 - 80.0 06/03/2018 [facility] Automated blood lymphocyte count as percentage ot total leukocytes 26.9 18.0 - 39.1 06/03/2018 [facility] Automated blood monocyte count as percentage of total leukocytes 5.2 4.4 - 11.3 06/03/2018 [facility] Automated blood eosinophil count as percentage of total leukocytes 1.5 0.0 - 6.0 06/03/2018 [facility] Automated blood basophil count as percentage of total leukocytes 0.7 0.0 - 1.0 06/03/2018 [facility] IM GRANULOCYTES % 0.4 0.0 - 1.0 06/03/2018 [facility] Automated blood neutrophil count 3.5 2.1 - 6.9 06/03/2018 [facility] Blood lymphocytes count (number/volume) 1.5 1.0 - 3.2 06/03/2018 [facility] Blood monocytes automated count (number/volume) 0.3 0.2 - 0.8 06/03/2018 [facility] Automated blood eosinophil count 0.1 0.0 - 0.4 06/03/2018 [facility] Automated blood basophil count (count/volume) 0.0 0.0 - 0.1 06/03/2018 [facility] Absolute Immature Granulocyte (auto 0.02 0 - 0.1 06/03/2018 [facility] Serum or plasma sodium measurement (moles/volume) 134 136 - 145 06/03/2018 [facility] Serum or plasma potassium measurement (moles/volume) 3.7 3.5 - 5.1 06/03/2018 [facility] Serum or plasma chloride measurement (moles/volume) 103 98 - 107 06/03/2018 [facility] Serum or plasma carbon dioxide, total measurement (moles/volume) 24 22 - 29 06/03/2018 [facility] Serum or plasma anion gap 10.7 8 - 16 06/03/2018 [facility] Serum or plasma urea nitrogen measurement (mass/volume) 10 7 - 26 06/03/2018 [facility] Serum or plasma creatinine measurement (mass/volume) 0.82 0.57 - 1.11 06/03/2018 [facility] Serum or plasma urea nitrogen/creatinine mass ratio 12 6 - 25 06/03/2018 [facility] Estimated glomerular filtration rate (GFR) determination > 60 60 06/03/2018 [facility] Glucose measurement 96 74 - 118 06/03/2018 [facility] Serum or plasma calcium measurement (mass/volume) 8.9 8.4 - 10.2 06/03/2018 [facility] Serum or plasma magnesium measurement (mass/volume) 1.9 1.3 - 2.1 06/03/2018 [facility] Serum or plasma total bilirubin measurement (mass/volume) 0.5 0.2 - 1.2 06/03/2018 [facility] Aspartate Amino Transf (AST/SGOT) 14 5 - 34 06/03/2018 [facility] Serum or plasma alanine aminotransferase measurement (enzymatic activity/volume) 19 0 - 55 06/03/2018 [facility] Serum or plasma protein measurement (mass/volume) 6.3 6.5 - 8.1 06/03/2018 [facility] Serum or plasma albumin measurement (mass/volume) 3.5 3.5 - 5.0 06/03/2018 [facility] Plasma globulin measurement (mass/volume) 2.8 2.3 - 3.5 06/03/2018 [facility] Serum or plasma albumin/globulin mass ratio 1.3 0.8 - 2.0 06/03/2018 [facility] Serum or plasma alkaline phosphatase measurement (enzymatic activity/volume) 84 40 - 150 06/03/2018 [facility] Serum or plasma magnesium measurement (mass/volume) 1.9 1.3 - 2.1 06/03/2018 [facility] Urine human chorionic gonadotropin (hCG) detection NEGATIVE NEGATIVE 06/03/2018 [facility] Urine human chorionic gonadotropin (hCG) detection NEGATIVE NEGATIVE 06/03/2018 [facility] Urine color determination YELLOW YELLOW 06/03/2018 [facility] Urine clarity SL CLOUDY CLEAR 06/03/2018 [facility] Specific gravity of Urine by Test strip 1.010 1.010 - 1.025 06/03/2018 [facility] Urine pH measurement by automated test strip 6.5 5 - 7 06/03/2018 [facility] Urine leukocyte esterase detection by dipstick TRACE NEGATIVE 06/03/2018 [facility] Urine nitrite detection NEGATIVE NEGATIVE 06/03/2018 [facility] Urine protein measurement by test strip (mass/volume) NEGATIVE NEGATIVE 06/03/2018 [facility] Urine glucose detection NEGATIVE NEGATIVE 06/03/2018 [facility] Urine ketones detection by automated test strip NEGATIVE NEGATIVE 06/03/2018 [facility] Urine urobilinogen measurement by test strip (mass/volume) 0.2 0.2 - 1 06/03/2018 [facility] Urine total bilirubin measurement (mass/volume) NEGATIVE NEGATIVE 06/03/2018 [facility] Urine erythrocytes detection NEGATIVE NEGATIVE 06/03/2018 [facility] Automated urine sediment leukocyte count by microscopy (number/high power field) 0-5 0 - 5 06/03/2018 [facility] Erythrocytes detection in urine sediment by light microscopy NONE 0 - 5 06/03/2018 [facility] Bacteria detection in urine sediment by light microscopy MODERATE NONE 06/03/2018 [facility] Epithelial cells detection in urine sediment by light microscopy RARE NONE 06/03/2018 [facility] Urine human chorionic gonadotropin (hCG) detection NEGATIVE NEGATIVE 06/03/2018 [facility] Urine human chorionic gonadotropin (hCG) detection NEGATIVE NEGATIVE 06/03/2018 [facility] Urine opiates screening test NEGATIVE NEGATIVE 04/28/2018 [facility] Barbiturates screen, urine NEGATIVE NEGATIVE 04/28/2018 [facility] Urine phencyclidine detection by screening method NEGATIVE NEGATIVE 04/28/2018 [facility] Urine amphetamines detection by screen method > 1000 ng/mL NEGATIVE NEGATIVE 04/28/2018 [facility] Urine Methamphetamines Screen NEGATIVE NEGATIVE 04/28/2018 [facility] Urine benzodiazepines detection by screening method POSITIVE NEGATIVE 04/28/2018 [facility] Urine cocaine measurement (mass/volume) NEGATIVE NEGATIVE 04/28/2018 [facility] Urine cannabinoids detection by screening method POSITIVE NEGATIVE 04/28/2018 [facility] Urine methadone screen NEGATIVE NEGATIVE 04/28/2018 [facility] Serum or plasma lipase measurement (enzymatic activity/volume) 29 8 - 78 04/28/2018 [facility] Automated blood platelet count (count/volume) 249 140 - 360 04/28/2018 [facility] Automated blood segmented neutrophil count as percentage of total leukocytes 63.7 38.7 - 80.0 04/28/2018 [facility] Automated blood lymphocyte count as percentage ot total leukocytes 28.5 18.0 - 39.1 04/28/2018 [facility] Automated blood monocyte count as percentage of total leukocytes 4.6 4.4 - 11.3 04/28/2018 [facility] Automated blood eosinophil count as percentage of total leukocytes 2.2 0.0 - 6.0 04/28/2018 [facility] Automated blood basophil count as percentage of total leukocytes 0.7 0.0 - 1.0 04/28/2018 [facility] IM GRANULOCYTES % 0.3 0.0 - 1.0 04/28/2018 [facility] Automated blood neutrophil count 3.7 2.1 - 6.9 04/28/2018 [facility] Blood lymphocytes count (number/volume) 1.7 1.0 - 3.2 04/28/2018 [facility] Blood monocytes automated count (number/volume) 0.3 0.2 - 0.8 04/28/2018 [facility] Automated blood eosinophil count 0.1 0.0 - 0.4 04/28/2018 [facility] Automated blood basophil count (count/volume) 0.0 0.0 - 0.1 04/28/2018 [facility] Absolute Immature Granulocyte (auto 0.02 0 - 0.1 04/28/2018 [facility] Urine color determination YELLOW YELLOW 04/28/2018 [facility] Urine clarity HAZY CLEAR 04/28/2018 [facility] Specific gravity of Urine by Test strip 1.005 1.010 - 1.025 04/28/2018 [facility] Urine pH measurement by automated test strip 6 5 - 7 04/28/2018 [facility] Urine leukocyte esterase detection by dipstick NEGATIVE NEGATIVE 04/28/2018 [facility] Urine nitrite detection NEGATIVE NEGATIVE 04/28/2018 [facility] Urine protein measurement by test strip (mass/volume) NEGATIVE NEGATIVE 04/28/2018 [facility] Urine glucose detection NEGATIVE NEGATIVE 04/28/2018 [facility] Urine ketones detection by automated test strip NEGATIVE NEGATIVE 04/28/2018 [facility] Urine opiates screening test NEGATIVE NEGATIVE 04/28/2018 [facility] Barbiturates screen, urine NEGATIVE NEGATIVE 04/28/2018 [facility] Urine phencyclidine detection by screening method NEGATIVE NEGATIVE 04/28/2018 [facility] Urine amphetamines detection by screen method > 1000 ng/mL NEGATIVE NEGATIVE 04/28/2018 [facility] Urine Methamphetamines Screen NEGATIVE NEGATIVE 04/28/2018 [facility] Urine benzodiazepines detection by screening method POSITIVE NEGATIVE 04/28/2018 [facility] Urine cocaine measurement (mass/volume) NEGATIVE NEGATIVE 04/28/2018 [facility] Urine cannabinoids detection by screening method POSITIVE NEGATIVE 04/28/2018 [facility] Urine methadone screen NEGATIVE NEGATIVE 04/28/2018 [facility] Urine urobilinogen measurement by test strip (mass/volume) 0.2 0.2 - 1 04/28/2018 [facility] Urine total bilirubin measurement (mass/volume) NEGATIVE NEGATIVE 04/28/2018 [facility] Urine erythrocytes detection NEGATIVE NEGATIVE 04/28/2018 [facility] Automated urine sediment leukocyte count by microscopy (number/high power field) 0-5 0 - 5 04/28/2018 [facility] Erythrocytes detection in urine sediment by light microscopy 0-5 0 - 5 04/28/2018 [facility] Bacteria detection in urine sediment by light microscopy MODERATE NONE 04/28/2018 [facility] Epithelial cells detection in urine sediment by light microscopy MODERATE NONE 04/28/2018 [facility] Serum or plasma sodium measurement (moles/volume) 134 136 - 145 04/28/2018 [facility] Serum or plasma potassium measurement (moles/volume) 3.9 3.5 - 5.1 04/28/2018 [facility] Serum or plasma chloride measurement (moles/volume) 103 98 - 107 04/28/2018 [facility] Serum or plasma carbon dioxide, total measurement (moles/volume) 23 22 - 29 04/28/2018 [facility] Serum or plasma anion gap 11.9 8 - 16 04/28/2018 [facility] Serum or plasma urea nitrogen measurement (mass/volume) 11 7 - 26 04/28/2018 [facility] Serum or plasma creatinine measurement (mass/volume) 0.84 0.57 - 1.11 04/28/2018 [facility] Serum or plasma urea nitrogen/creatinine mass ratio 13 6 - 25 04/28/2018 [facility] Estimated glomerular filtration rate (GFR) determination > 60 60 04/28/2018 [facility] Glucose measurement 121 74 - 118 04/28/2018 [facility] Serum or plasma calcium measurement (mass/volume) 9.1 8.4 - 10.2 04/28/2018 [facility] Serum or plasma total bilirubin measurement (mass/volume) 0.3 0.2 - 1.2 04/28/2018 [facility] Aspartate Amino Transf (AST/SGOT) 19 5 - 34 04/28/2018 [facility] Serum or plasma alanine aminotransferase measurement (enzymatic activity/volume) 27 0 - 55 04/28/2018 [facility] Serum or plasma protein measurement (mass/volume) 6.9 6.5 - 8.1 04/28/2018 [facility] Serum or plasma albumin measurement (mass/volume) 3.6 3.5 - 5.0 04/28/2018 [facility] Plasma globulin measurement (mass/volume) 3.3 2.3 - 3.5 04/28/2018 [facility] Serum or plasma albumin/globulin mass ratio 1.1 0.8 - 2.0 04/28/2018 [facility] Serum or plasma alkaline phosphatase measurement (enzymatic activity/volume) 108 40 - 150 04/28/2018 [facility] Serum or plasma lipase measurement (enzymatic activity/volume) 29 8 - 78 04/28/2018 [facility] Serum or plasma choriogonadotropin ( test) detection NEGATIVE NEGATIVE 03/28/2018 [facility] Serum or plasma choriogonadotropin ( test) detection NEGATIVE NEGATIVE 03/28/2018 [facility] Serum or plasma choriogonadotropin ( test) detection NEGATIVE NEGATIVE 03/28/2018 [facility] Serum or plasma choriogonadotropin ( test) detection NEGATIVE NEGATIVE 03/28/2018 [facility] [facility] Serum or plasma amylase measurement (enzymatic activity/volume) 101 25 - 125 03/28/2018 [facility] Serum or plasma choriogonadotropin ( test) detection NEGATIVE NEGATIVE 03/28/2018 [facility] Automated blood basophil count (count/volume) Automated blood basophil count (count/volume) 0.0 0.0 - 0.1 03/04/2018 [facility] Automated blood basophil count as percentage of total leukocytes Automated blood basophil count as percentage of total leukocytes 0.6 0.0 - 1.0 03/04/2018 [facility] Automated blood eosinophil count Automated blood eosinophil count 0.1 0.0 - 0.4 03/04/2018 [facility] Automated blood eosinophil count as percentage of total leukocytes Automated blood eosinophil count as percentage of total leukocytes 2.3 0.0 - 6.0 03/04/2018 [facility] Automated blood hematocrit (volume fraction) Automated blood hematocrit (volume fraction) 36.8 34.2 - 44.1 03/04/2018 [facility] Automated blood lymphocyte count as percentage ot total leukocytes Automated blood lymphocyte count as percentage ot total leukocytes 20.3 18.0 - 39.1 03/04/2018 [facility] Automated blood monocyte count as percentage of total leukocytes Automated blood monocyte count as percentage of total leukocytes 6.0 4.4 - 11.3 03/04/2018 [facility] Automated blood neutrophil count Automated blood neutrophil count 4.4 2.1 - 6.9 03/04/2018 [facility] Automated blood platelet count (count/volume) Automated blood platelet count (count/volume) 264 140 - 360 03/04/2018 [facility] Automated blood segmented neutrophil count as percentage of total leukocytes Automated blood segmented neutrophil count as percentage of total leukocytes 70.5 38.7 - 80.0 03/04/2018 [facility] Automated erythrocyte mean corpuscular hemoglobin (mass per erythrocyte) Automated erythrocyte mean corpuscular hemoglobin (mass per erythrocyte) 29.8 28 - 32 03/04/2018 [facility] Automated erythrocyte mean corpuscular hemoglobin concentration measurement (mass/volume) Automated erythrocyte mean corpuscular hemoglobin concentration measurement (mass/volume) 34.0 31 - 35 03/04/2018 [facility] Automated erythrocyte mean corpuscular volume Automated erythrocyte mean corpuscular volume 87.6 81 - 99 03/04/2018 [facility] Automated urine sediment leukocyte count by microscopy (number/high power field) Automated urine sediment leukocyte count by microscopy (number/high power field) NONE 0 - 5 03/04/2018 [facility] Bacteria detection in urine sediment by light microscopy Bacteria detection in urine sediment by light microscopy FEW NONE 03/04/2018 [facility] Blood erythrocytes automated count (number/volume) Blood erythrocytes automated count (number/volume) 4.20 3.6 - 5.1 03/04/2018 [facility] Blood hemoglobin measurement (moles/volume) Blood hemoglobin measurement (moles/volume) 12.5 12.0 - 16.0 03/04/2018 [facility] Blood leukocytes automated count (number/volume) Blood leukocytes automated count (number/volume) 6.21 4.8 - 10.8 03/04/2018 [facility] Blood lymphocytes count (number/volume) Blood lymphocytes count (number/volume) 1.3 1.0 - 3.2 03/04/2018 [facility] Blood monocytes automated count (number/volume) Blood monocytes automated count (number/volume) 0.4 0.2 - 0.8 03/04/2018 [facility] Epithelial cells detection in urine sediment by light microscopy Epithelial cells detection in urine sediment by light microscopy FEW NONE 03/04/2018 [facility] Erythrocytes detection in urine sediment by light microscopy Erythrocytes detection in urine sediment by light microscopy <20 0 - 5 03/04/2018 [facility] Estimated glomerular filtration rate (GFR) determination Estimated glomerular filtration rate (GFR) determination >60 60 03/04/2018 [facility] Glucose measurement Glucose measurement 122 74 - 118 03/04/2018 [facility] Plasma globulin measurement (mass/volume) Plasma globulin measurement (mass/volume) 3.2 2.3 - 3.5 03/04/2018 [facility] Serum or plasma alanine aminotransferase measurement (enzymatic activity/volume) Serum or plasma alanine aminotransferase measurement (enzymatic activity/volume) 24 0 - 55 03/04/2018 [facility] Serum or plasma albumin measurement (mass/volume) Serum or plasma albumin measurement (mass/volume) 3.5 3.5 - 5.0 03/04/2018 [facility] Serum or plasma albumin/globulin mass ratio Serum or plasma albumin/globulin mass ratio 1.1 0.8 - 2.0 03/04/2018 [facility] Serum or plasma alkaline phosphatase measurement (enzymatic activity/volume) Serum or plasma alkaline phosphatase measurement (enzymatic activity/volume) 107 40 - 150 03/04/2018 [facility] Serum or plasma anion gap Serum or plasma anion gap 15.3 8 - 16 03/04/2018 [facility] Serum or plasma calcium measurement (mass/volume) Serum or plasma calcium measurement (mass/volume) 9.3 8.4 - 10.2 03/04/2018 [facility] Serum or plasma carbon dioxide, total measurement (moles/volume) Serum or plasma carbon dioxide, total measurement (moles/volume) 22 22 - 29 03/04/2018 [facility] Serum or plasma chloride measurement (moles/volume) Serum or plasma chloride measurement (moles/volume) 105 98 - 107 03/04/2018 [facility] Serum or plasma creatinine measurement (mass/volume) Serum or plasma creatinine measurement (mass/volume) 0.99 0.57 - 1.11 03/04/2018 [facility] Serum or plasma lipase measurement (enzymatic activity/volume) Serum or plasma lipase measurement (enzymatic activity/volume) 32 8 - 78 03/04/2018 [facility] Serum or plasma potassium measurement (moles/volume) Serum or plasma potassium measurement (moles/volume) 4.3 3.5 - 5.1 03/04/2018 [facility] Serum or plasma protein measurement (mass/volume) Serum or plasma protein measurement (mass/volume) 6.7 6.5 - 8.1 03/04/2018 [facility] Serum or plasma sodium measurement (moles/volume) Serum or plasma sodium measurement (moles/volume) 138 136 - 145 03/04/2018 [facility] Serum or plasma total bilirubin measurement (mass/volume) Serum or plasma total bilirubin measurement (mass/volume) 0.2 0.2 - 1.2 03/04/2018 [facility] Serum or plasma urea nitrogen measurement (mass/volume) Serum or plasma urea nitrogen measurement (mass/volume) 16 7 - 26 03/04/2018 [facility] Serum or plasma urea nitrogen/creatinine mass ratio Serum or plasma urea nitrogen/creatinine mass ratio 16 6 - 25 03/04/2018 [facility] Specific gravity of Urine by Test strip Specific gravity of Urine by Test strip 1.010 1.010 - 1.025 03/04/2018 [facility] Urine clarity Urine clarity SL CLOUDY CLEAR 03/04/2018 [facility] Urine color determination Urine color determination YELLOW YELLOW 03/04/2018 [facility] Urine erythrocytes detection Urine erythrocytes detection 3+ NEGATIVE 03/04/2018 [facility] Urine glucose detection Urine glucose detection NEGATIVE NEGATIVE 03/04/2018 [facility] Urine ketones detection by automated test strip Urine ketones detection by automated test strip NEGATIVE NEGATIVE 03/04/2018 [facility] Urine leukocyte esterase detection by dipstick Urine leukocyte esterase detection by dipstick NEGATIVE NEGATIVE 03/04/2018 [facility] Urine nitrite detection Urine nitrite detection NEGATIVE NEGATIVE 03/04/2018 [facility] Urine pH measurement by automated test strip Urine pH measurement by automated test strip 6 5 - 7 03/04/2018 [facility] Urine protein measurement by test strip (mass/volume) Urine protein measurement by test strip (mass/volume) NEGATIVE NEGATIVE 03/04/2018 [facility] Urine total bilirubin measurement (mass/volume) Urine total bilirubin measurement (mass/volume) NEGATIVE NEGATIVE 03/04/2018 [facility] Urine urobilinogen measurement by test strip (mass/volume) Urine urobilinogen measurement by test strip (mass/volume) 0.2 0.2 - 1 03/04/2018 [facility] Red Cell Distribution Width 13.8 11.7 - 14.4 03/04/2018 [facility] IM GRANULOCYTES % 0.3 0.0 - 1.0 03/04/2018 [facility] Absolute Immature Granulocyte (auto 0.02 0 - 0.1 03/04/2018 [facility] Aspartate Amino Transf (AST/SGOT) 20 5 - 34 03/04/2018 [facility] Capillary blood glucose measurement by glucometer (mass/volume) 106 70 - 120 02/09/2018 [facility] Capillary blood glucose measurement by glucometer (mass/volume) 106 70 - 120 02/09/2018 [facility] Capillary blood glucose measurement by glucometer (mass/volume) 106 70 - 120 02/09/2018 [facility] Capillary blood glucose measurement by glucometer (mass/volume) 106 70 - 120 02/09/2018 [facility] Capillary blood glucose measurement by glucometer (mass/volume) Capillary blood glucose measurement by glucometer (mass/volume) 106 70 - 120 02/09/2018 [facility] Urine human chorionic gonadotropin (hCG) detection NEGATIVE NEGATIVE 02/09/2018 [facility] Urine human chorionic gonadotropin (hCG) detection Urine human chorionic gonadotropin (hCG) detection NEGATIVE NEGATIVE 02/09/2018 [facility] Serum or plasma creatine kinase measurement (enzymatic activity/volume) 75 29 - 168 01/21/2018 [facility] Serum or plasma creatine kinase MB measurement (mass/volume) 0.40 0 - 5.0 01/21/2018 [facility] Troponin I measurement by highly sensitive enzyme immunoassay < 0.001 0 - 0.300 01/21/2018 [facility] Serum or plasma creatine kinase measurement (enzymatic activity/volume) 75 29 - 168 01/21/2018 [facility] Serum or plasma creatine kinase MB measurement (mass/volume) 0.40 0 - 5.0 01/21/2018 [facility] Troponin I measurement by highly sensitive enzyme immunoassay < 0.001 0 - 0.300 01/21/2018 [facility] Troponin I measurement by highly sensitive enzyme immunoassay < 0.001 0 - 0.300 01/21/2018 [facility] Troponin I measurement by highly sensitive enzyme immunoassay < 0.001 0 - 0.300 01/21/2018 [facility] Barbiturates screen, urine Barbiturates screen, urine NEGATIVE NEGATIVE 01/21/2018 [facility] Serum or plasma amylase measurement (enzymatic activity/volume) Serum or plasma amylase measurement (enzymatic activity/volume) 96 25 - 125 01/21/2018 [facility] Serum or plasma choriogonadotropin ( test) detection Serum or plasma choriogonadotropin ( test) detection NEGATIVE NEGATIVE 01/21/2018 [facility] Serum or plasma creatine kinase MB measurement (mass/volume) Serum or plasma creatine kinase MB measurement (mass/volume) 0.40 0 - 5.0 01/21/2018 [facility] Serum or plasma creatine kinase measurement (enzymatic activity/volume) Serum or plasma creatine kinase measurement (enzymatic activity/volume) 75 29 - 168 01/21/2018 [facility] Troponin I measurement by highly sensitive enzyme immunoassay Troponin I measurement by highly sensitive enzyme immunoassay <0.001 0 - 0.300 01/21/2018 [facility] Urine amphetamines detection by screen method > 1000 ng/mL Urine amphetamines detection by screen method > 1000 ng/mL NEGATIVE NEGATIVE 01/21/2018 [facility] Urine benzodiazepines detection by screening method Urine benzodiazepines detection by screening method POSITIVE NEGATIVE 01/21/2018 [facility] Urine cannabinoids detection by screening method Urine cannabinoids detection by screening method POSITIVE NEGATIVE 01/21/2018 [facility] Urine cocaine measurement (mass/volume) Urine cocaine measurement (mass/volume) NEGATIVE NEGATIVE 01/21/2018 [facility] Urine opiates screening test Urine opiates screening test NEGATIVE NEGATIVE 01/21/2018 [facility] Urine phencyclidine detection by screening method Urine phencyclidine detection by screening method NEGATIVE NEGATIVE 01/21/2018 [facility] Urine Methamphetamines Screen NEGATIVE NEGATIVE 01/21/2018 [facility] Mucus detection in urine sediment by light microscopy FEW RARE 10/26/2017 [facility] Mucus detection in urine sediment by light microscopy FEW RARE 10/26/2017 [facility] Mucus detection in urine sediment by light microscopy FEW RARE 10/26/2017 [facility] Mucus detection in urine sediment by light microscopy Mucus detection in urine sediment by light microscopy FEW RARE 10/26/2017 [facility] Serum or plasma conjugated bilirubin measurement (mass/volume) 0.1 0.0 - 0.5 08/21/2017 [facility] Serum or plasma conjugated bilirubin measurement (mass/volume) 0.1 0.0 - 0.5 08/21/2017 [facility] Serum or plasma conjugated bilirubin measurement (mass/volume) Serum or plasma conjugated bilirubin measurement (mass/volume) 0.1 0.0 - 0.5 08/21/2017 [facility] Blood culture NO GROWTH AFTER 5 DAYS, FINAL REPORT 08/20/2017 [facility] Blood culture NO GROWTH AFTER 5 DAYS, FINAL REPORT 08/20/2017 [facility] Blood culture Blood culture NO GROWTH AFTER 5 DAYS, FINAL REPORT 08/20/2017 [facility] Hemoglobin A1c Percent 4.9 4.0 - 7.0 08/20/2017 [facility] Serum or plasma triglyceride measurement (mass/volume) 113 0 - 149 08/20/2017 [facility] Serum or plasma cholesterol measurement (mass/volume) 227 0 - 199 08/20/2017 [facility] Serum or plasma cholesterol in LDL measurement (mass/volume) 141 60 - 130 08/20/2017 [facility] Serum or plasma cholesterol in HDL measurement (mass/volume) 63 40 - 60 08/20/2017 [facility] Serum or plasma total cholesterol/cholesterol in HDL mass ratio 3.6 3.0 - 3.6 08/20/2017 [facility] Hemoglobin A1c Percent 4.9 4.0 - 7.0 08/20/2017 [facility] Serum or plasma total cholesterol/cholesterol in HDL mass ratio 3.6 3.0 - 3.6 08/20/2017 [facility] Serum or plasma cholesterol in HDL measurement (mass/volume) Serum or plasma cholesterol in HDL measurement (mass/volume) 63 40 - 60 08/20/2017 [facility] Serum or plasma cholesterol in LDL measurement (mass/volume) Serum or plasma cholesterol in LDL measurement (mass/volume) 141 60 - 130 08/20/2017 [facility] Serum or plasma cholesterol measurement (mass/volume) Serum or plasma cholesterol measurement (mass/volume) 227 0 - 199 08/20/2017 [facility] Serum or plasma total cholesterol/cholesterol in HDL mass ratio Serum or plasma total cholesterol/cholesterol in HDL mass ratio 3.6 3.0 - 3.6 08/20/2017 [facility] Serum or plasma triglyceride measurement (mass/volume) Serum or plasma triglyceride measurement (mass/volume) 113 0 - 149 08/20/2017 [facility] Transitional cells detection in urine sediment by light microscopy RARE NONE 08/05/2017 [facility] Transitional cells detection in urine sediment by light microscopy Transitional cells detection in urine sediment by light microscopy RARE NONE 08/05/2017 [facility] Urine color determination YELLOW YELLOW [facility] Urine clarity CLEAR CLEAR [facility] Specific gravity of Urine by Test strip 1.010 1.010 - 1.025 [facility] Urine pH measurement by automated test strip 6 5 - 7 [facility] Urine leukocyte esterase detection by dipstick NEGATIVE NEGATIVE [facility] Urine nitrite detection NEGATIVE NEGATIVE [facility] Urine protein measurement by test strip (mass/volume) NEGATIVE NEGATIVE [facility] Urine glucose detection NEGATIVE NEGATIVE [facility] Urine ketones detection by automated test strip NEGATIVE NEGATIVE [facility] Urine urobilinogen measurement by test strip (mass/volume) 0.2 0.2 - 1 [facility] Urine total bilirubin measurement (mass/volume) NEGATIVE NEGATIVE [facility] Urine erythrocytes detection NEGATIVE NEGATIVE [facility] Automated urine sediment leukocyte count by microscopy (number/high power field) 6-10 0 - 5 [facility] Erythrocytes detection in urine sediment by light microscopy NONE 0 - 5 [facility] Bacteria detection in urine sediment by light microscopy NONE NONE [facility] Epithelial cells detection in urine sediment by light microscopy FEW NONE [facility] Bacterial urine culture Urine Culture [facility] Pathology Reports No Data Provided for This Section Diagnostic Reports No Data Provided for This Section Consultation Notes No Data Provided for This Section Discharge Summaries No Data Provided for This Section History and Physicals No Data Provided for This Section Vital Signs Vital Sign Value Date Comments Source Diastolic (mm Hg) 81 01/18/2019 [facility] Systolic (mm Hg) 120 01/18/2019 [facility] Height 64 01/18/2019 [facility] Heart Rate 97 01/18/2019 [facility] Weight 236.13 01/18/2019 [facility] Diastolic (mm Hg) 78 11/17/2018 [facility] Systolic (mm Hg) 107 11/17/2018 [facility] Height 64 11/17/2018 [facility] Heart Rate 102 11/17/2018 [facility] Weight 232.38 11/17/2018 [facility] Diastolic (mm Hg) 66 07/28/2018 [facility] Systolic [...] DC Date Status Source Departed Emergency Room [id number] MARTA BARROW MD 07/03/2017 07/03/2017 [facility] Departed Emergency Room [id number] MADELINE MCKEON MD 07/30/2017 07/30/2017 [facility] Departed Emergency Room [id number] MADELINE GILBERT MD 08/05/2017 08/05/2017 [facility] Discharged Inpatient [id number] NEELIMA TILLEY MD 08/20/2017 08/24/2017 [facility] Departed Emergency Room [id number] COLLETTE MARTINEZ MD 09/09/2017 09/09/2017 [facility] Est Patient Detailed - [id number] Bogdan Hand MD 09/25/2017 [facility] Est Patient Detailed - [id number] Bogdan Hand MD 10/21/2017 [facility] Departed Emergency Room [id number] MADELINE GILBERT MD 10/26/2017 10/26/2017 [facility] Departed Emergency Room [id number] CANDE LOUIS MD 11/17/2017 11/17/2017 [facility] Est Patient Detailed - [id number] Bogdan Hand MD 11/20/2017 [facility] Departed Emergency Room [id number] MADELINE GILBERT MD 12/04/2017 12/04/2017 [facility] Est Patient Detailed - [id number] Bogdan Hand MD 12/13/2017 [facility] Est Patient Detailed - [id number] Bogdan Hand MD 01/15/2018 [facility] Departed Emergency Room [id number] SEEMA TINAJERO MD 01/21/2018 01/21/2018 [facility] Est Patient Detailed - [id number] Bogdan Hand MD 02/07/2018 [facility] Departed Emergency Room [id number] COLLETTE MARTINEZ MD 02/09/2018 02/09/2018 [facility] Est Patient Exp Problem - [id number] Bogdan Hand MD 02/17/2018 [facility] Departed Emergency Room [id number] SEEMA TINAJERO MD 03/04/2018 03/04/2018 [facility] Est Patient Exp Problem - [id number] Bogdan Hand MD 03/17/2018 [facility] Departed Emergency Room [id number] DANIAL ÁLVAREZ MD 03/28/2018 03/28/2018 [facility] Departed Emergency Room [id number] EROS SIDHU MD 03/31/2018 03/31/2018 [facility] Departed Emergency Room [id number] EROS SIDHU MD 04/09/2018 04/09/2018 [facility] Est Patient Detailed - [id number] Bogdan Hand MD 04/14/2018 [facility] Departed Emergency Room [id number] SEEMA TINAJERO MD 04/28/2018 04/28/2018 [facility] Est Patient Detailed - [id number] Bogdan Hand MD 05/05/2018 [facility] Departed Emergency Room [id number] EROS SIDHU MD 06/03/2018 06/03/2018 [facility] Est Patient Exp Problem - [id number] Bogdan Hand MD 06/09/2018 [facility] Departed Emergency Room [id number] MADELINE GILBERT MD 06/15/2018 06/15/2018 [facility] Est Patient Detailed - [id number] Bogdan Hand MD 07/07/2018 [facility] Est Patient Detailed - [id number] Bogdan Hand MD 07/28/2018 [facility] Departed Emergency Room [id number] COLLETTE MARTINEZ MD 08/05/2018 08/05/2018 [facility] Departed Emergency Room [id number] EROS SIDHU MD 08/08/2018 08/08/2018 [facility] Est Patient Exp Problem - [id number] Bogdan Hand MD 09/22/2018 [facility] Depart Emergency Room [id number] EROS SIDHU MD 10/01/2018 10/01/2018 [facility] Discharged Inpatient (obs) [id number] NEELIMA TILLEY MD 11/09/2018 11/12/2018 [facility] Est Patient Exp Problem - [id number] Bogdan Hand MD 11/17/2018 [facility] Est Patient Detailed - [id number] Bogdan Hand MD 01/18/2019 [facility] Procedures Procedure Code Date Perfomer Comments Source Psychotherapy 45 (38-52*) min - 55943 (with patient and/or family member) 45817 09/07/2018 Dom VILLEDA [facility] EMERGENCY DEPT VISIT 21622 08/08/2018 [facility] CT of abdomen and pelvis without contrast [id number] 06/03/2018 NAHUM [facility] Computed tomography of chest with contrast [id number] 03/04/2018 [facility] Diagnostic evaluation (no medical) - 43877 [id number] 02/10/2018 Dom VILLEDA [facility] Computed tomography of abdomen and pelvis with contrast [id number] 01/21/2018 [facility] Computed tomography of lumbar spine with contrast [id number] 01/21/2018 [facility] Diagnostic evaluation with medical - 06673 [id number] 08/31/2017 [facility] Computed tomography of abdomen with contrast [id number] 08/23/2017 JAREK [facility] Assessment and Plan No Data Provided for This Section Plan of Care Plan of Care Date Source Discharge Date 11/12/18 10:55am Disposition AGAINST MEDICAL ADVICE Prescriptions See Medication Section 11/12/2018 [facility] Discharge Date 10/01/18 10:54am Disposition HOME, SELF-CARE Condition at Discharge Stable Instructions/Education Provided Back Pain Forms Provided Work/School Excuse Prescriptions See Medication Section Additional Instructions/Education Your diagnosis today is chronic nontraumatic lumbar back pain associated with muscle strain and acute urinary tract infection. Follow up with PCP and Urology. Limit lifting, rest, continue healthy diet and plenty of fluids. 10/01/2018 [facility] Discharge Date 08/08/18 1:52pm Disposition AGAINST MEDICAL ADVICE Condition at Discharge Stable Instructions/Education Provided Back Pain Forms Provided Work/School Excuse Prescriptions See Medication Section 08/08/2018 [facility] Discharge Date 06/15/18 11:31am Disposition HOME, SELF-CARE Condition at Discharge Stable Instructions/Education Provided Abdominal Pain - Adult Forms Provided Work/School Excuse Prescriptions See Medication Section Additional Instructions/Education FOLLOW UP WITH SURGEON PLANNED ON THURSDAY TAKE MEDICATIONS PRESCRIBED 06/15/2018 [facility] Discharge Date 06/03/18 12:30pm Disposition HOME, SELF-CARE Condition at Discharge Stable Instructions/Education Provided Back Pain Forms Provided Work/School Excuse Prescriptions See Medication Section Referrals Jb Pena Additional Instructions/Education follow up with pcp take meds as directed 06/03/2018 [facility] Discharge Date 04/28/18 11:28am Disposition ELOPED Condition at Discharge Other Forms Provided Work/School Excuse Prescriptions See Medication Section 04/28/2018 [facility] Discharge Date 03/04/18 12:33pm Disposition HOME, SELF-CARE Condition at Discharge Stable Instructions/Education Provided Abdominal Pain - Adult Forms Provided Work/School Excuse Prescriptions See Medication Section Referrals Vicki Estrada MD Additional Instructions/Education 1. Your CT shows dependent atelectasis, this may be a sign of a possible early pneumonia, please take the antibitoics as prescribed 2. Please f/u with your general surgeon for f/u and pain control 03/04/2018 [facility] Social History Social History Date Source No social history information available. 11/12/2018 [facility] Family History No Data Provided for This Section Advance Directives Order Name Results Value Date Source Advance Directives Advance Directives Directive Response Recorded Date/Time Does the patient have an advance directive? No 11/10/18 1:09am If yes, is advance directive on file with [facility]? No 11/10/18 1:09am If not on file with [facility] will patient provide a copy? No 11/10/18 1:09am Do you have a Directive to Physician? No 11/09/18 8:44pm Do you have a Medical Power of [employer]er? No 11/09/18 8:44pm Do you have an out of hospital Do Not Resuscitate Order? No 11/09/18 8:44pm Do you have any special needs we should be aware of? No 11/09/18 8:44pm Do you have a support person here with you today? Yes 11/09/18 8:44pm Did patient receive Notice of Privacy Practices? Yes 11/09/18 8:44pm Did patient receive patient rights and responsibilities? Yes 11/09/18 8:44pm 11/12/2018 [facility] Advance Directives Advance Directives Directive Response Recorded Date/Time Does the patient have an advance directive? No 08/20/17 2:40pm Do you have a Directive to Physician? No 10/01/18 8:39am Do you have a Medical Power of [employer]er? No 10/01/18 8:39am Do you have an out of hospital Do Not Resuscitate Order? No 10/01/18 8:39am Do you have any special needs we should be aware of? No 10/01/18 8:39am Do you have a support person here with you today? Yes 10/01/18 8:39am Did patient receive Notice of Privacy Practices? Yes 10/01/18 8:39am Did patient receive patient rights and responsibilities? Yes 10/01/18 8:39am 10/01/2018 [facility] Advance Directives Advance Directives Directive Response Recorded Date/Time Does the patient have an advance directive? No 08/20/17 2:40pm If yes, is advance directive on file with [facility]? No 08/08/18 12:33pm If not on file with [facility] will patient provide a copy? No 08/08/18 12:33pm Do you have a Directive to Physician? No 08/08/18 12:33pm Do you have a Medical Power of [employer]er? No 08/08/18 12:33pm Do you have an out of hospital Do Not Resuscitate Order? No 08/08/18 12:33pm Do you have any special needs we should be aware of? No 08/08/18 12:33pm Do you have a support person here with you today? Yes 08/08/18 12:33pm Did patient receive Notice of Privacy Practices? Yes 08/08/18 12:33pm Did patient receive patient rights and responsibilities? Yes 08/08/18 12:33pm 08/08/2018 [facility] Advance Directives Advance Directives Directive Response Recorded Date/Time Does the patient have an advance directive? No 08/20/17 2:40pm Do you have a Directive to Physician? No 06/15/18 8:43am Do you have a Medical Power of [employer]? No 06/15/18 8:43am Do you have an out of hospital Do Not Resuscitate Order? No 06/15/18 8:43am Do you have any special needs we should be aware of? No 06/15/18 8:43am Do you have a support person here with you today? No 06/15/18 8:43am Did patient receive Notice of Privacy Practices? Yes 06/15/18 8:43am Did patient receive patient rights and responsibilities? Yes 06/15/18 8:43am 06/15/2018 [facility] Advance Directives Advance Directives Directive Response Recorded Date/Time Does the patient have an advance directive? No 08/20/17 2:40pm If yes, is advance directive on file with [facility]? No 06/03/18 10:57am If not on file with [facility] will patient provide a copy? No 06/03/18 10:57am Do you have a Directive to Physician? No 06/03/18 10:57am Do you have a Medical Power of [employer]er? No 06/03/18 10:57am Do you have an out of hospital Do Not Resuscitate Order? No 06/03/18 10:57am Do you have any special needs we should be aware of? No 06/03/18 10:57am Do you have a support person here with you today? Yes 06/03/18 10:58am Did patient receive Notice of Privacy Practices? Yes 06/03/18 10:58am Did patient receive patient rights and responsibilities? Yes 06/03/18 10:58am 06/03/2018 [facility] Advance Directives Advance Directives Directive Response Recorded Date/Time Does the patient have an advance directive? No 08/20/17 2:40pm Do you have a Directive to Physician? No 04/28/18 8:52am Do you have a Medical Power of [employer]er? No 04/28/18 8:52am Do you have an out of hospital Do Not Resuscitate Order? No 04/28/18 8:52am Do you have any special needs we should be aware of? No 04/28/18 8:52am Do you have a support person here with you today? No 04/28/18 8:52am Did patient receive Notice of Privacy Practices? Yes 04/28/18 8:52am Did patient receive patient rights and responsibilities? Yes 04/28/18 8:52am 04/28/2018 [facility] Advance Directives Advance Directives Directive Response Recorded Date/Time Does the patient have an advance directive? No 08/20/17 2:40pm If yes, is advance directive on file with [facility]? No 08/20/17 2:40pm If not on file with [facility] will patient provide a copy? No 08/20/17 2:40pm Do you have a Directive to Physician? No 03/04/18 9:16am Do you have a Medical Power of [employer]er? No 03/04/18 9:16am Do you have an out of hospital Do Not Resuscitate Order? No 03/04/18 9:16am Do you have any special needs we should be aware of? No 03/04/18 9:16am Do you have a support person here with you today? No 03/04/18 9:16am Did patient receive Notice of Privacy Practices? Yes 03/04/18 9:16am Did patient receive patient rights and responsibilities? Yes 03/04/18 9:16am 03/04/2018 [facility] Functional Status No Data Provided for This Section
--- OUTSIDE RECORDS SUMMARY | 2019-02-26 12:20 | XMS REPORT ---
Author Author Admin, [place] Organization [facility] Address [address] [place] [address] Phone Allergies, Adverse Reactions, Alerts Allergy Name [...] one tablet By Mouth at bedtime ARIPIPRAZOLE 15444301458 Active Bogdan Hand MD Active LEXAPRO 10 MG ORAL TABLET Take one tablet By Mouth daily with the 20mg tablet ESCITALOPRAM OXALATE 60185152580 Active Bogdan Hand MD Active KLONOPIN 2 MG ORAL TABLET Take one tablet By Mouth daily as needed for anxiety CLONAZEPAM 69796509797 Active Bogdan Hand MD Active TRAZODONE HCL 300 MG ORAL TABLET Take one tablet By Mouth at bedtime TRAZODONE HCL 64500695033 Active Bogdan Hand MD Active AMITRIPTYLINE HCL 150 MG ORAL TABLET Take two tablets By Mouth at bedtime AMITRIPTYLINE HCL 45392774050 Active Bogdan Hand MD Active PRAZOSIN HCL 5 MG ORAL CAPSULE Take 3 capsules By Mouth at bedtime PRAZOSIN HCL 05167009789 Active Bogdan Hand MD Active LEXAPRO 20 MG ORAL TABLET Take one tablet By Mouth daily with the 10mg tablet ESCITALOPRAM OXALATE 56922042181 Active Bogdan Hand MD Active VALIUM 10 MG ORAL TABLET Take one tablet By Mouth at bedtime for breakthrough anxiety DIAZEPAM 15743851331 Active Bogdan Hand MD Active WELLBUTRIN XL 150 MG ORAL TABLET EXTENDED RELEASE 24 HOUR Take one tablet By Mouth daily WELLBUTRIN XL 150 MG ORAL TABLET EXTENDED RELEASE 24 HOUR BUPROPION HCL Inactive LUNESTA 3 MG ORAL TABLET Take one tablet By Mouth at bedtime LUNESTA 3 MG ORAL TABLET 590612 ESZOPICLONE Inactive ZYPREXA 10 MG ORAL TABLET Take one tablet By Mouth daily ZYPREXA 10 MG ORAL TABLET 760264 OLANZAPINE Inactive LUNESTA 3 MG ORAL TABLET Take one tablet at bedtime LUNESTA 3 MG ORAL TABLET 613845 ESZOPICLONE Inactive DIAZEPAM 5 MG TABS TAKE 1 TABLET BY MOUTH AT BEDTIME NEEDED FOR BREAKTHROUGH ANXIETY DIAZEPAM 5 MG TABS 851094 DIAZEPAM Inactive WELLBUTRIN XL 150 MG ORAL TABLET EXTENDED RELEASE 24 HOUR Take one tablet By Mouth daily BUPROPION HCL 59154421234 No Longer Active Bogdan Hand MD Active LUNESTA 3 MG ORAL TABLET Take one tablet By Mouth at bedtime ESZOPICLONE 03490585320 No Longer Active Bogdan Hand MD Active TEMAZEPAM 30 MG ORAL CAPSULE Take one capsule By Mouth By Mouth at bedtime TEMAZEPAM 14919628590 No Longer Active Bogdan Hand MD Active ZYPREXA 10 MG ORAL TABLET Take one tablet By Mouth daily OLANZAPINE 57102496910 No Longer Active Bogdan Hand MD Active LORAZEPAM 2 MG ORAL TABLET Take one tablet By Mouth TID as needed for anxiety LORAZEPAM 10814776832 No Longer Active Bogdan Hand MD Active LUNESTA 3 MG ORAL TABLET Take one tablet at bedtime ESZOPICLONE 54211199209 No Longer Active Bogdan Hand MD Active DIAZEPAM 5 MG TABS TAKE 1 TABLET BY MOUTH AT BEDTIME NEEDED FOR BREAKTHROUGH ANXIETY DIAZEPAM 06939410329 No Longer Active Bogdan Hand MD Active [...] rate weight E&M 218 [lb_av] Weight Measured Encounters Date Encounter Provider Code Facility 08:32:41 CDT Est Patient Exp Problem - 74198 Bogdan Hand MD CPT-18018 [facility] 08:20:15 CDT Est Patient Exp Problem - 55174 Bogdan Hand MD CPT-17003 [facility] 14:54:55 PLAN MANAGER Est Patient Detailed - 22613 Bogdan Hand MD CPT-49048 [facility] 09:55:59 PLAN MANAGER Est Patient Detailed - 82376 Bogdan Hand MD CPT-85789 [facility] 10:20:33 PLAN MANAGER Est Patient Exp Problem - 87394 Bogdan Hand MD CPT-84317 [facility] 10:36:05 PLAN MANAGER Est Patient Detailed - 14750 Bogdan Hand MD CPT-31875 [facility] 11:34:27 PLAN MANAGER Est Patient Detailed - 80616 Bogdan Hand MD CPT-36972 [facility] 10:47:07 CDT Est Patient Exp Problem - 15974 Bogdan Hand MD CPT-08873 [facility] 08:46:49 CDT Est Patient Exp Problem - 21142 Bogdan Hand MD CPT-62897 [facility] 08:33:08 CDT Est Patient Detailed - 17502 Bogdan Hand MD CPT-17524 [facility] 08:31:14 CDT Est Patient Detailed - 86997 Bogdan Hand MD CPT-93799 [facility] 13:41:13 CDT Est Patient Detailed - 39773 Bogdan Hand MD CPT-32895 [facility] 19:16:18 CDT Est Patient Detailed - 87938 Bogdan Hand MD CPT-57940 [facility] 09:08:54 CDT Est Patient Detailed - 97240 Bogdan Hand MD CPT-97925 [facility] 08:21:45 CDT Est Patient Detailed - 20241 Bogdan Hand MD CPT-85885 [facility] Procedures Code Procedure Name Date Entry Date Standard Description CPT-00343 Psychotherapy 45 (38-52*) min - 28978 (with patient and/or family member) 14:56:48 CDT CPT-77493 Psychotherapy 45 (38-52*) min - 28693 (with patient and/or family member) 13:05:22 CDT CPT-98924 Diagnostic evaluation (no medical) - 23231 10:06:21 CDT CPT-66397 Diagnostic evaluation with medical - 71268 20:46:14 CDT
--- OUTSIDE RECORDS SUMMARY | 2019-02-26 12:20 | XMS REPORT ---
Author Author Admin, [place] Organization [facility] Address [address] [place] [address] Phone Allergies, Adverse Reactions, Alerts Allergy Name [...] one tablet By Mouth at bedtime ARIPIPRAZOLE 44378303121 Active Bogdan Hand MD Active LEXAPRO 10 MG ORAL TABLET Take one tablet By Mouth daily with the 20mg tablet ESCITALOPRAM OXALATE 86484282619 Active Bogdan Hand MD Active KLONOPIN 2 MG ORAL TABLET Take one tablet By Mouth daily as needed for anxiety CLONAZEPAM 90653601632 Active Bogdan Hand MD Active TRAZODONE HCL 300 MG ORAL TABLET Take one tablet By Mouth at bedtime TRAZODONE HCL 81880749871 Active Bogdan Hand MD Active AMITRIPTYLINE HCL 150 MG ORAL TABLET Take two tablets By Mouth at bedtime AMITRIPTYLINE HCL 15981901941 Active Bogdan Hand MD Active PRAZOSIN HCL 5 MG ORAL CAPSULE Take 3 capsules By Mouth at bedtime PRAZOSIN HCL 72379814360 Active Bogdan Hand MD Active LEXAPRO 20 MG ORAL TABLET Take one tablet By Mouth daily with the 10mg tablet ESCITALOPRAM OXALATE 56879930898 Active Bogdan Hand MD Active VALIUM 10 MG ORAL TABLET Take one tablet By Mouth at bedtime for breakthrough anxiety DIAZEPAM 75751433323 Active Bogdan Hand MD Active WELLBUTRIN XL 150 MG ORAL TABLET EXTENDED RELEASE 24 HOUR Take one tablet By Mouth daily WELLBUTRIN XL 150 MG ORAL TABLET EXTENDED RELEASE 24 HOUR BUPROPION HCL Inactive LUNESTA 3 MG ORAL TABLET Take one tablet By Mouth at bedtime LUNESTA 3 MG ORAL TABLET 768544 ESZOPICLONE Inactive ZYPREXA 10 MG ORAL TABLET Take one tablet By Mouth daily ZYPREXA 10 MG ORAL TABLET 036862 OLANZAPINE Inactive LUNESTA 3 MG ORAL TABLET Take one tablet at bedtime LUNESTA 3 MG ORAL TABLET 623018 ESZOPICLONE Inactive DIAZEPAM 5 MG TABS TAKE 1 TABLET BY MOUTH AT BEDTIME NEEDED FOR BREAKTHROUGH ANXIETY DIAZEPAM 5 MG TABS 645885 DIAZEPAM Inactive WELLBUTRIN XL 150 MG ORAL TABLET EXTENDED RELEASE 24 HOUR Take one tablet By Mouth daily BUPROPION HCL 09992359541 No Longer Active Bogdan Hand MD Active LUNESTA 3 MG ORAL TABLET Take one tablet By Mouth at bedtime ESZOPICLONE 27368387385 No Longer Active Bogdan Hnad MD Active TEMAZEPAM 30 MG ORAL CAPSULE Take one capsule By Mouth By Mouth at bedtime TEMAZEPAM 14936732943 No Longer Active Bogdan Hand MD Active ZYPREXA 10 MG ORAL TABLET Take one tablet By Mouth daily OLANZAPINE 69600351290 No Longer Active Bogdan Hand MD Active LORAZEPAM 2 MG ORAL TABLET Take one tablet By Mouth TID as needed for anxiety LORAZEPAM 28458255875 No Longer Active Bogdan Hand MD Active LUNESTA 3 MG ORAL TABLET Take one tablet at bedtime ESZOPICLONE 35750130266 No Longer Active Bogdan Hand MD Active DIAZEPAM 5 MG TABS TAKE 1 TABLET BY MOUTH AT BEDTIME NEEDED FOR BREAKTHROUGH ANXIETY DIAZEPAM 31629111963 No Longer Active Bogdan Hand MD Active Vital Signs Date Name Value Unit Range Description blood pressure, diastolic 81 mm[Hg] BP siddiqui blood pressure, systolic 120 mm[Hg] BP sys height E&M 64 [in_us] Bdy height pulse rate E&M 97 /min Heart rate weight E&M 236.13 [lb_av] Weight Measured blood pressure, diastolic 78 mm[Hg] BP siddiqui [...] rate weight E&M 222 [lb_av] Weight Measured Encounters Date Encounter Provider Code Facility 11:57:49 CDT Est Patient Detailed - 47543 Bogdan Hand MD CPT-40581 [facility] 08:32:41 CDT Est Patient Exp Problem - 63960 Bogdan Hand MD CPT-63803 [facility] 08:20:15 CDT Est Patient Exp Problem - 71511 Bogdan Hand MD CPT-72262 [facility] 14:54:55 BILLING COORDINATOR Est Patient Detailed - 89555 Bogdan Hand MD CPT-98293 [facility] 09:55:59 BILLING COORDINATOR Est Patient Detailed - 60351 Bogdan Hand MD CPT-77421 [facility] 10:20:33 BILLING COORDINATOR Est Patient Exp Problem - 28570 Bogdan Hand MD CPT-57503 [facility] 10:36:05 BILLING COORDINATOR Est Patient Detailed - 03170 Bogdan Hand MD CPT-86186 [facility] 11:34:27 BILLING COORDINATOR Est Patient Detailed - 24911 Bogdan Hand MD CPT-22726 [facility] 10:47:07 CDT Est Patient Exp Problem - 16562 Bogdan Hand MD CPT-75874 [facility] 08:46:49 CDT Est Patient Exp Problem - 25366 Bogdan Hand MD CPT-62702 [facility] 08:33:08 CDT Est Patient Detailed - 78978 Bogdan Hand MD CPT-19640 [facility] 08:31:14 CDT Est Patient Detailed - 39222 Bogdan Hand MD CPT-95400 [facility] 13:41:13 CDT Est Patient Detailed - 32809 Bogdan Hand MD CPT-77181 [facility] 19:16:18 CDT Est Patient Detailed - 80435 Bogdan Hand MD CPT-64510 [facility] 09:08:54 CDT Est Patient Detailed - 44180 Bogdan Hand MD CPT-64650 [facility] 08:21:45 CDT Est Patient Detailed - 83196 Bogdan Hand MD CPT-38968 [facility] Procedures Code Procedure Name Date Entry Date Standard Description CPT-01073 Psychotherapy 45 (38-52*) min - 49319 (with patient and/or family member) 14:56:48 CDT CPT-72989 Psychotherapy 45 (38-52*) min - 43494 (with patient and/or family member) 13:05:22 CDT CPT-87338 Diagnostic evaluation (no medical) - 24577 10:06:21 CDT CPT-01835 Diagnostic evaluation with medical - 24091 20:46:14 CDT
[2019-02-26] MEDS ORDERED: SODIUM CHLORIDE 0.9% 1000ML 1,000 ML IV STA (12:21)
[2019-02-26] MEDS ORDERED: ONDANSETRON HCL INJ 2MG/ML 2ML 2 MG/ML VIAL IV NR (12:30)
[2019-02-26 12:49] LABS: BASOPHILS % 0.1 % (0.0-1.0); EOSINOPHILS # (AUTO) 0.1 (0.0-0.4); EOSINOPHILS % 1.5 % (0.0-6.0); HEMATOCRIT 36.8 % (34.2-44.1); HEMOGLOBIN 12.5 g/dL (12.0-16.0); LYMPHOCYTES # (AUTO) 1.8 (1.0-3.2); LYMPHOCYTES % 24.6 % (18.0-39.1); MEAN CORPUSCULAR HEMOGLOBIN 29.3 pg (28-32); MEAN CORPUSCULAR VOLUME 86.2 fL (81-99); MONOCYTES # (AUTO) 0.4 (0.2-0.8); MONOCYTES % 5.3 % (4.4-11.3); NEUTROPHILS % 68.2 % (38.7-80.0); PLATELET COUNT 308 x10e3/uL (140-360); RED BLOOD COUNT 4.27 x10e6/uL (3.6-5.1); RED CELL DISTRIBUTION WIDTH 13.5 % (11.7-14.4)
[2019-02-26 12:49] LABS: BILIRUBIN,URINE NEGATIVE (NEGATIVE); CLARITY,URINE CLEAR (CLEAR); COLOR,URINE YELLOW (YELLOW); KETONES,URINE NEGATIVE (NEGATIVE); LEUKOCYTE ESTERASE ,URINE NEGATIVE (NEGATIVE); NITRITE,URINE NEGATIVE (NEGATIVE); PROTEIN,URINE DIPSTICK TRACE (NEGATIVE); URINE UROBILINOGEN 0.2 mg/dL (0.2 - 1)
[2019-02-26 13:13] LABS: BACTERIA,URINE FEW /HPF; EPITHELIAL CELLS,URINE FEW /LPF; RBC,URINE 0-5 /HPF (0-5); WBC,URINE (MAN) 0-5 /HPF (0-5)
[2019-02-26 13:14] LABS: CALCIUM OXALATE CRYSTALS,UR FEW (FEW)
[2019-02-26] MEDS ORDERED: KETOROLAC TROMETHAMINE 30 MG/ML VIAL IV ONE (13:30)
[2019-02-26 14:00] LABS: ALANINE AMINOTRANSFERASE 23 IU/L (0-55); ALBUMIN 3.5 g/dL (3.5-5.0); ALBUMIN/GLOBULIN RATIO 1.2 (0.8-2.0); ALKALINE PHOSPHATASE 96 IU/L (40-150); ANION GAP 12.7 mmol/L (8-16); BLOOD UREA NITROGEN 9 mg/dL (7-26); BUN/CREATININE RATIO 10 (6-25); CALCIUM 9.3 mg/dL (8.4-10.2); CARBON DIOXIDE 23 mmol/L (22-29); CHLORIDE 108 mmol/L (98-107); CREATININE, SERUM 0.93 mg/dL (0.57-1.11); EST GLOMERULAR FILTRATION RATE > 60 ML/MIN (60-); GLUCOSE 84 mg/dL (74-118); POTASSIUM 3.7 mmol/L (3.5-5.1); SODIUM 140 mmol/L (136-145)
[2019-02-26] MEDS ORDERED: MORPHINE SULFATE INJ 4 MG/ML INJ 1ML IV PRN (15:15)
[2019-02-26] MEDS ORDERED: IOPAMIDOL 370 MG/ML 200 ML INFUS..BTL INJ ONE (15:24)
[2019-02-26] MEDS ORDERED: SODIUM CHLORIDE 0.9% 50ML 50 ML ONE (15:24)
--- NOTE | 2019-02-26 15:50 | Diagnostic Imaging Report ---
EXAM: CT Abdomen and Pelvis WITH contrast INDICATION: Urinary tract infection, abdominal pain COMPARISON: Abdominal CT 11/11/2018, 10/01/2018. TECHNIQUE: Abdomen and pelvis were scanned utilizing a multidetector helical scanner from the lung base to the pubic symphysis after administration of IV contrast. Coronal and sagittal reformations were obtained. Routine protocol was performed. Scan was performed when during portal venous phase. IV CONTRAST: 100 mL of Isovue 370 ORAL CONTRAST: Water COMPLICATIONS: None RADIATION DOSE: Total DLP: 907 mGy*cm Estimated effective dose: (DLP x 0.015 x size factor) mSv CTDIvol has been reviewed. It is below the limits set by the Radiation Protocol Committee (RPC). Dose modulation, iterative reconstruction, and/or weight based adjustment of the mA/kV was utilized to reduce the radiation dose to as low as reasonably achievable. FINDINGS: LINES and TUBES: None. LOWER THORAX: Bibasilar atelectasis. HEPATOBILIARY: Enlarged liver with decreased hepatic attenuation. No focal hepatic lesions. No biliary ductal dilation. GALLBLADDER: There are cholecystectomy clips. SPLEEN: No splenomegaly. PANCREAS: No focal masses or ductal dilatation. ADRENALS: No adrenal nodules KIDNEYS/URETERS: Kidneys enhance symmetrically. No hydronephrosis. Small cyst in the left kidney. Mild scarring/lobulation of the left renal superior pole. Punctate nonobstructive calculi in the bilateral kidneys. GI TRACT: No abnormal distention, wall thickening, or evidence of bowel obstruction. Appendix is normal. PELVIC ORGANS/BLADDER: Mild circumferential bladder wall thickening and minimal perivesicular fat stranding. Hysterectomy. No adnexal masses. LYMPH NODES: No lymphadenopathy. VESSELS: Unremarkable. PERITONEUM / RETROPERITONEUM: No free air or fluid. BONES: Degenerative changes in the spine hips and pelvis. Bone islands in the L5 vertebral body. SOFT TISSUES: Mild supraumbilical subcutaneous stranding with evidence of umbilical hernia repair. No evidence of persistent hernia.. IMPRESSION: 1. Bladder findings can be seen in the setting of urinary bladder cystitis. 2. Hepatomegaly with hepatic steatosis. Signed by: Carlton Vinson DO on 02/26/2019 3:47 PM
[2019-02-26 16:24] VITALS: BP 101/56
== END 2019-02-26 16:30 | disposition home or self-care (01) ==
LOC: ER 12:14
DX: R10.12 Left upper quadrant pain (principal); R11.2 Nausea with vomiting, unspecified; L50.1 Idiopathic urticaria
CPT/HCPCS: 36415; 74177; 80053; 81001; 83690; 85025; 93005; 99284; J1885; J2270; J2405; J7030; Q9967

== ENCOUNTER 2019-03-01 08:09 | Emergency (ER) | payer OTHER ==
[~2019-03-01] VITALS: Ht 162.6 cm; Wt 99.8 kg
[2019-03-01] MEDS ORDERED: MORPHINE SULFATE INJ 4 MG/ML INJ 1ML IV STA (08:12)
[2019-03-01 08:41] LABS: PREGNANCY TEST, URINE NEGATIVE (NEGATIVE)
[2019-03-01 08:44] LABS: BENZODIAZEPINES SCREEN,URINE P (NEGATIVE)
[2019-03-01 08:45] LABS: AMPHETAMINES SCREEN,URINE N (NEGATIVE); PHENCYCLIDINE SCREEN,URINE N (NEGATIVE)
[2019-03-01] MEDS ORDERED: ONDANSETRON HCL INJ 2MG/ML 2ML 2 MG/ML VIAL IV ONE (09:00)
[2019-03-01] MEDS ORDERED: ASPIRIN 81 MG CHEW TAB PO ONE (09:00)
[2019-03-01] MEDS ORDERED: MORPHINE SULFATE INJ 4 MG/ML INJ 1ML ONE (09:08)
[2019-03-01 09:09] LABS: BASOPHILS % 0.1 % (0.0-1.0); EOSINOPHILS % 0.3 % (0.0-6.0); HEMATOCRIT 37.2 % (34.2-44.1); HEMOGLOBIN 12.6 g/dL (12.0-16.0); LYMPHOCYTES # (AUTO) 1.5 (1.0-3.2); LYMPHOCYTES % 20.6 % (18.0-39.1); MEAN CORPUSCULAR HEMOGLOBIN 29.5 pg (28-32); MEAN CORPUSCULAR HGB CONC 33.9 g/dL (31-35); MEAN CORPUSCULAR VOLUME 87.1 fL (81-99); MONOCYTES # (AUTO) 0.4 (0.2-0.8); MONOCYTES % 5.8 % (4.4-11.3); NEUTROPHILS # (AUTO) 5.4 (2.1-6.9); NEUTROPHILS % 72.5 % (38.7-80.0); PLATELET COUNT 302 x10e3/uL (140-360); RED BLOOD COUNT 4.27 x10e6/uL (3.6-5.1); RED CELL DISTRIBUTION WIDTH 13.8 % (11.7-14.4)
--- NOTE | 2019-03-01 09:16 | Diagnostic Imaging Report ---
EXAMINATION: CHEST SINGLE (NOT PORTABLE) INDICATION: Chest pain COMPARISON: None FINDINGS: LINES/TUBES:None LUNGS:The lungs are well-inflated. No focal consolidation or pulmonary edema. PLEURA:No pleural effusion or pneumothorax. MEDIASTINUM:The cardiomediastinal silhouette appears normal in size and shape. BONES/SOFT TISSUES:No acute osseous injury. ABDOMEN:No free air under the diaphragm. IMPRESSION: No focal pneumonia or pulmonary edema. Signed by: Leta Fink MD on 03/01/2019 9:12 AM
[2019-03-01 09:28] LABS: ALANINE AMINOTRANSFERASE 24 IU/L (0-55); ALBUMIN 3.5 g/dL (3.5-5.0); ALBUMIN/GLOBULIN RATIO 1.1 (0.8-2.0); ALKALINE PHOSPHATASE 83 IU/L (40-150); ANION GAP 14.1 mmol/L (8-16); BLOOD UREA NITROGEN 12 mg/dL (7-26); BUN/CREATININE RATIO 14 (6-25); CALCIUM 9.3 mg/dL (8.4-10.2); CARBON DIOXIDE 24 mmol/L (22-29); CHLORIDE 107 mmol/L (98-107); CREATINE KINASE 59 IU/L (29-168); CREATININE, SERUM 0.85 mg/dL (0.57-1.11); EST GLOMERULAR FILTRATION RATE > 60 ML/MIN (60-); GLUCOSE 100 mg/dL (74-118); POTASSIUM 4.1 mmol/L (3.5-5.1); SODIUM 141 mmol/L (136-145)
== END 2019-03-01 09:54 | disposition home or self-care (01) ==
LOC: ER 08:09
DX: R07.89 Other chest pain (principal); I45.10 Unspecified right bundle-branch block
CPT/HCPCS: 36415; 71045; 80053; 80307; 81025; 82550; 82553; 83690; 84484; 85025; 85379; 99284; J2270; J2405

== ENCOUNTER 2019-03-18 08:01 | Emergency (ER) | payer OTHER ==
[~2019-03-18] VITALS: Ht 162.6 cm; Wt 99.8 kg
[2019-03-18 09:39] LABS: BILIRUBIN,URINE NEGATIVE (NEGATIVE); CLARITY,URINE CLOUDY (CLEAR); COLOR,URINE YELLOW (YELLOW); KETONES,URINE NEGATIVE (NEGATIVE); LEUKOCYTE ESTERASE ,URINE NEGATIVE (NEGATIVE); NITRITE,URINE NEGATIVE (NEGATIVE); PROTEIN,URINE DIPSTICK NEGATIVE (NEGATIVE); URINE UROBILINOGEN 0.2 mg/dL (0.2 - 1)
[2019-03-18 09:40] LABS: BACTERIA,URINE MANY /HPF; EPITHELIAL CELLS,URINE MODERATE /LPF; RBC,URINE 0-5 /HPF (0-5)
== END 2019-03-18 09:40 | disposition short-term general hospital (02) ==
LOC: ER 08:01
DX: R10.12 Left upper quadrant pain (principal); R10.13 Epigastric pain
CPT/HCPCS: 81001; 87086

== ENCOUNTER 2019-04-22 08:20 | Emergency (ER) | payer OTHER ==
[~2019-04-22] VITALS: Ht 162.6 cm; Wt 99.8 kg
--- OUTSIDE RECORDS SUMMARY | 2019-04-22 08:26 | XMS REPORT ---
Author Author Admin, Catarina Organization Unknown Address Unknown Phone Unavailable PROBLEMS Condition Status Date Provider Notes DEPRESSIVE DISORDER, MAJOR, RECURRENT EPISODE, W/ PSYCHOTIC FEATURES active Bogdan Peace INSOMNIA DISORDER, PERSISTENT active Bogdan Peace PANIC DISORDER active Bogadn Peace PTSD active Bogdan Peace ENCOUNTERS Date Type Provider Location Encounter Diagnosis - Ambulatory Encounter Bogdan Peace Bogdan Lewiskins [facility] UNK - Ambulatory Encounter Bogdan Peace Bogdan Peace [facility] UNK - Ambulatory Encounter Bogdan Peace Bogdan Peace Chacho Qiu [facility] UNK - Ambulatory Encounter Bogdan Peace Bogdan Peace Renetta Saravia [facility] UNK - Ambulatory Encounter Yulia Fu [facility] UNK - Ambulatory Encounter Bogdan Peace Bogdan Peace Yulia Lee [facility] UNK - Ambulatory Encounter Bogdan Peace Bogdan Peace [facility] UNK - Ambulatory Encounter Olga Fernandes [facility] UNK - Ambulatory Encounter Bogdan Peace Bogdan Peace Yulia Lee [facility] UNK - Ambulatory Encounter Bogdan Peace Bogdan Peace Yulia Lee [facility] UNK - Ambulatory Encounter Bogdan Peace Bogdan Peace Yulia Lee [facility] UNK - Ambulatory Encounter Bogdan Peace Bogdan Peace Yulia Lee [facility] UNK - Ambulatory Encounter Bogdan Peace Bogdan Peace Yulia Jesus [facility] UNK - Ambulatory Encounter Bogdan Peace Bogdan Peace Yulia Lee [facility] UNK - Ambulatory Encounter Bogdan Peace Bogdan Peace [facility] UNK - Ambulatory Encounter Bogdan Peace Bogdan Peace Yulia Lee [facility] UNK - Ambulatory Encounter Bogdan Peace Bogdan Peace Gauri Sasha [facility] UNK - Ambulatory Encounter Yulia Lee [facility] UNK - Ambulatory Encounter Olga Fernandes [facility] UNK - Ambulatory Encounter Bogdan Peace Bogdan Peace [facility] UNK - Ambulatory Encounter Bogdan Peace Bogdan Peace Yulia Lee [facility] UNK - Ambulatory Encounter Bogdan Peace Bogdan Peace Yulia Lee [facility] UNK - Ambulatory Encounter Olga Fernandes [facility] UNK - Ambulatory Encounter Bogdan Peace Bogdan Peace [facility] UNK - Ambulatory Encounter Bogdan Peace Bogdan Peace Yulia Lee [facility] UNK - Ambulatory Encounter Bogdan Peace Bogdan Peace [facility] UNK - Ambulatory Encounter Bogdan Peace Bogdan Peace [facility] UNK - Ambulatory Encounter Bogdan Peace Bogdan Peace [facility] UNK - Ambulatory Encounter Bogdan Peace Bogdan Peace [facility] UNK - Ambulatory Encounter Bogdan Peace Bogdan Peace [facility] UNK - Ambulatory Encounter Bogdan Peace Bogdan Peace [facility] UNK - Ambulatory Encounter Bogdan Peace Bogdan Peace [facility] UNK - Ambulatory Encounter Bogdan Peace Bogdan Peace [facility] UNK - Ambulatory Encounter Bogdan Peace Bogdan Peace [facility] UNK - Ambulatory Encounter Bogdan Peace Bogdan Peace [facility] UNK - Ambulatory Encounter Bogdan Peace Bogdan Peace [facility] UNK - Ambulatory Encounter Bogdan Peace Bogdan Peace Yulia Lee [facility] UNK - Ambulatory Encounter Bogdan Peace Bogdan Peace Yulia Lee [facility] UNK - Ambulatory Encounter Bogdan Peace Bogdan Peace [facility] UNK - Ambulatory Encounter Bogdan Peace Bogdan Peace Lee [facility] DEPRESSIVE DISORDER, MAJOR, RECURRENT EPISODE, W/ PSYCHOTIC FEATURES - Ambulatory Encounter Yulia Palafox [facility] UNK - Ambulatory Encounter Bogdan Peace Bogdanlizzette Lee [facility] UNK - Ambulatory Encounter [facility] - Ambulatory Encounter Yulia Lee Karenvernon Avila [facility] UNK - [facility] - [facility] Bogdan Bender Lee [facility] PTSDPANIC DISORDERINSOMNIA DISORDER, PERSISTENT - Ambulatory Encounter Socorro Maldonado Bailey Any [facility] UNK - Ambulatory Encounter Any [facility] UNK VITAL SIGNS No Information Available Allergies No Known Allergy Information REASON FOR REFERRAL No Information Available RESULTS Date Observation Value Provider Reference Range Interpretation Location LDL cholesterol, serum 113 mg/dL [facility] 0-99 High " very low density lipoproteins 37 mg/dL [facility] 5-40 " HDL cholesterol, serum 54 mg/dL [facility] >39 " triglyceride, serum, fasting 186 mg/dL [facility] 0-149 High " cholesterol, serum 204 mg/dL [facility] 100-199 High " alanine aminotransferase (SGPT), serum 34 1/L [facility] 0-32 High " aspartate aminotransferase (SGOT), serum 26 1/L [facility] 0-40 " alkaline phosphatase, serum 95 1/L [facility] 39-117 " bilirubin, serum, total 0.2 mg/dL [facility] 0.0-1.2 " albumin/globulin ratio, serum 1.6 [facility] 1.2-2.2 " globulin, serum 2.5 [facility] 1.5-4.5 " albumin, serum 3.9 g/dL [facility] 3.5-5.5 " protein, total, serum 6.4 g/dL [facility] 6.0-8.5 " calcium, serum 9.3 mg/dL [facility] 8.7-10.2 " carbon dioxide, venous blood 23 mmol/L [facility] 20-29 " chloride, serum 101 mmol/L [facility] 96-106 " potassium, serum 4.6 mmol/L [facility] 3.5-5.2 " sodium, serum 140 mmol/L [facility] 134-144 " urea nitrogen/creatinine ratio, serum 14 [facility] 9-23 " eGFR if 116 mL/min/((173/100).m2) [facility] >59 " Estimated Glomerular Filtration Rate (calc) 101 mL/min/((173/100).m2) [facility] >59 " creatinine, serum 0.74 mg/dL [facility] 0.57-1.00 " urea nitrogen, blood 10 mg/dL [facility] 6-24 " blood glucose, random 125 mg/dL [facility] 65-99 High " immature granulocytes, percentage of total cells, blood 0 % [facility] Not Estab. " basophil count, absolute 0.0 x10E3/uL [facility] 0.0-0.2 " Eosinophil Absolute Count 0.1 X10E3/UL [facility] 0.0-0.4 " monocyte count, blood, automated 0.3 X10E3/UL [facility] 0.1-0.9 " lymphocyte count, blood, automated 1.9 X10E3/UL [facility] 0.7-3.1 " Absolute Neutrophils 2.9 X10E3/UL [facility] 1.4-7.0 " basophils as percent of blood leukocytes 1 % [facility] Not Estab. " eosinophils as percent of blood leukocytes 2 % [facility] Not Estab. " monocytes as percent of blood leukocytes 5 % [facility] Not Estab. " lymphocytes as percent of blood leukocytes 36 % [facility] Not Estab. " neutrophils as percent of blood leukocytes 56 % [facility] Not Estab. " platelet count 231 X10E3/UL [facility] 150-450 " red blood cell distribution width 14.6 % [facility] 12.3-15.4 " mean corpuscular hemoglobin concentration, RBC 32.4 G/DL [facility] 31.5-35.7 " mean corpuscular hemoglobin, RBC 29.4 pg [facility] 26.6-33.0 " mean corpuscular volume, RBC 91 fL [facility] 79-97 " hematocrit, blood 38.9 % [facility] 34.0-46.6 " hemoglobin, blood 12.6 g/dL [facility] 11.1-15.9 " erythrocyte (RBC) count 4.29 X10E6/UL [facility] 3.77-5.28 " leukocyte count, blood 5.1 X10E3/UL [facility] 3.4-10.8 HISTORY OF IMMUNIZATIONS No Information Available HISTORY OF MEDICATION USE Medication Instructions Dates Provider Comments ABILIFY 10 MG ORAL TABLET Take one tablet By Mouth at bedtime Bogdan Peace LEXAPRO 10 MG ORAL TABLET Take one tablet By Mouth daily with the 20mg tablet Bogdan Peace KLONOPIN 2 MG ORAL TABLET Take one tablet By Mouth daily as needed for anxiety Bogdan Peace TRAZODONE HCL 300 MG ORAL TABLET Take one tablet By Mouth at bedtime Bogdan Peace WELLBUTRIN XL 150 MG ORAL TABLET EXTENDED RELEASE 24 HOUR Take one tablet By Mouth daily - Bogdan Peace AMITRIPTYLINE HCL 150 MG ORAL TABLET Take two tablets By Mouth at bedtime Bogdan Peace LUNESTA 3 MG ORAL TABLET Take one tablet By Mouth at bedtime - Bogdan Peace ZYPREXA 10 MG ORAL TABLET Take one tablet By Mouth daily - Bogdan Peaec PRAZOSIN HCL 5 MG ORAL CAPSULE Take 3 capsules By Mouth at bedtime Bogdan Peace LUNESTA 3 MG ORAL TABLET Take one tablet at bedtime - Bogdan Peace VALIUM 10 MG ORAL TABLET Take one tablet By Mouth at bedtime for breakthrough anxiety Bogdan Peace LEXAPRO 20 MG ORAL TABLET Take one tablet By Mouth daily with the 10mg tablet Bogdan Hand SOCIAL HISTORY Date Observation Value Provider social history E&M after 14 years of marriage, left home in Fall 2016 City: [facility]. State: [place]. 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 State: [place]. 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 State: [place]. 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 State: [place]. 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 State: [place]. 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 State: [place]. 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 State: [place]. 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 State: [place]. 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 State: [place]. 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 State: [place]. 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 State: [place]. 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 State: [place]. 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 State: [place]. 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 State: [place]. 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 State: [place]. 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 State: [place]. 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 State: [place]. 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 State: [place]. 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 Bogdan Peace " social history reviewed E&M reviewed today Bogdan Peace " Exercise Program Referral T Bogdan Peace " Weight Management Counseling Provided T Bogdan Peace " Nutrition intervention T Bogdan Peace " Exercise Program Referral T Bogdan Peace " Weight Management Counseling Provided T Bogdan Peace " Nutrition intervention T Bogdan Peace " drug use, illicit Previously Bogdan Peace " alcohol use Currently Bogdan Peace " smoking status never smoker Bogdan Peace " social history reviewed E&M reviewed today Bogdan Peace " social history E&M after 14 years of marriage, left home in Fall 2016 City: [place]. State: [place]. 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 Bogdan Hand " family support after 14 years of marriage, left home in Fall 2016 Bogdan Hand " home/family situation, assessment Lives with 4 children (ages 13, 12, 9 and 7 as of 08/2017) Bogdan Hand FUNCTIONAL STATUS No Information Available MENTAL STATUS Date Observation Value Provider mental status assessment, judgment fair Bogdan Hand " insight (mental status exam) fair Bogdan Peace " Mental Status Exam: intelligence adequate fund of information, intact memory processes, oriented to person, oriented to place, oriented to time, oriented to situation, oriented to reality Bogdan Peace " hallucinations none Bogdan Peace " thought content (mental status exam) (E&M) lucid Bogdan Peace " mental status assessment, process able to abstract, goal-directed, logical Bogdan Peace " mental status assessment, sensorium alert, attentive, clear Bogdan Peace " affect (mental status exam) congruent, normal intensity, constricted Bogdan Peace " mood (mental status exam) pleasant, "down" Bogdan Peace " mental status assessment, speech activity normal flow, normal pace, normal pressure, normal rate, normal tone, normal volume, spontaneous Bogdan Peace " mental status assessment, motor activity normal gait, normal posture, - Bogdan Peace " behavior (mental status exam) appropriate, candid, cooperative, good eye contact, polite, responsive, - Bogdan Peace " mental appearance (mental status exam) adequate hygiene, appropriate dress, looks like stated age, neat, very casual dress, several tattoos Bogdan Hand mental status assessment, judgment fair Bogdan Hand " insight (mental status exam) fair Bogdan Peace " Mental Status Exam: intelligence adequate fund of information, intact memory processes, oriented to person, oriented to place, oriented to time, oriented to situation, oriented to reality Bogdan Peace " hallucinations none Bogdan Peace " thought content (mental status exam) (E&M) lucid Bogdan Peace " mental status assessment, process able to abstract, goal-directed, logical Bogdan Peace " mental status assessment, sensorium alert, attentive, clear Bogdan Peace " affect (mental status exam) congruent, normal intensity, normal range Bogdan Peace " mood (mental status exam) frustrated, pleasant Bogdan Peace " mental status assessment, speech activity normal flow, normal pace, normal pressure, normal rate, normal tone, normal volume, spontaneous Bogdan Peace " mental status assessment, motor activity normal gait, normal posture Bogdan Peace " behavior (mental status exam) appropriate, candid, cooperative, good eye contact, polite, responsive Bogdan Peace " mental appearance (mental status exam) adequate hygiene, appropriate dress, looks like stated age, elijah Lewiskins mental status assessment, judgment fair Bogdan Peace " insight (mental status exam) fair Bogdan Peace " Mental Status Exam: intelligence adequate fund of information, intact memory processes, oriented to person, oriented to place, oriented to time, oriented to situation, oriented to reality Bogdan Peace " hallucinations none Bogdan Peace " thought content (mental status exam) (E&M) lucid Bogdan Peace " mental status assessment, process able to abstract, goal-directed, logical Bogdan Peace " mental status assessment, sensorium alert, attentive, clear Bogdan Peace " affect (mental status exam) congruent, normal intensity, anxious Bogdan Peace " mood (mental status exam) depressed, frustrated Bogdan Peace " mental status assessment, speech activity normal flow, normal pace, normal pressure, normal rate, normal tone, normal volume, spontaneous Bogdan Peace " mental status assessment, motor activity normal gait, normal posture Bogdan Peace " behavior (mental status exam) appropriate, candid, cooperative, good eye contact, polite, responsive Bogdan Peace " mental appearance (mental status exam) adequate hygiene, appropriate dress, looks like stated age, elijah Lewiskins mental status assessment, judgment fair Bogdan Peace " insight (mental status exam) fair Bogdan Peace " Mental Status Exam: intelligence adequate fund of information, intact memory processes, oriented to person, oriented to place, oriented to time, oriented to situation, oriented to reality Bogdan Peace " hallucinations none Bogdan Peace " thought content (mental status exam) (E&M) lucid Bogdan Peace " mental status assessment, process able to abstract, goal-directed, logical Bogdan Peace " mental status assessment, sensorium alert, attentive, clear Bogdan Peace " affect (mental status exam) congruent, anxious Bogdan Peace " mood (mental status exam) depressed, frustrated, worried Bogdan Peace " mental status assessment, speech activity normal flow, normal pace, normal pressure, normal rate, normal tone, normal volume, spontaneous Bogdan Peace " mental status assessment, motor activity normal gait, normal posture Bogdan Peace " behavior (mental status exam) appropriate, candid, cooperative, good eye contact, polite, responsive, tearful Bogdan Peace " mental appearance (mental status exam) adequate hygiene, appropriate dress, looks like stated age, neat Bogdan Peace mood (mental status exam) anxious, frustrated, worried Olga Fernandes " mental status assessment, judgment fair Olga Fernandes " insight (mental status exam) fair Olga Fernandes " Mental Status Exam: intelligence adequate fund of information, intact memory processes, oriented to person, oriented to place, oriented to time, oriented to situation, oriented to reality Olga Fernandes " hallucinations none Olga Fernandes " thought content (mental status exam) (E&M) lucid Olga Fernandes " mental status assessment, process able to abstract, goal-directed, logical Olga Fernandes " mental status assessment, sensorium alert, attentive, clear Olga Fernandes " affect (mental status exam) congruent, anxious Olga Fernandes " mental status assessment, speech activity normal flow, normal pace, normal pressure, normal rate, normal tone, normal volume, spontaneous Olga Fernandes " mental status assessment, motor activity normal gait, normal posture Olga Fernandes " behavior (mental status exam) appropriate, candid, cooperative, good eye contact, polite, responsive Olga Fernandes " mental appearance (mental status exam) adequate hygiene, appropriate dress, looks like stated age, neat Loga Fernandes mental status assessment, judgment fair Bogdan Peace " insight (mental status exam) fair Bogdan Peace " Mental Status Exam: intelligence adequate fund of information, intact memory processes, oriented to person, oriented to place, oriented to time, oriented to situation, oriented to reality Bogdan Peace " hallucinations none Bogdan Peace " thought content (mental status exam) (E&M) lucid Bogdan Peace " mental status assessment, process able to abstract, goal-directed, logical Bogdan Peace " mental status assessment, sensorium alert, attentive, clear Bogdan Peace " affect (mental status exam) congruent, normal intensity, normal range Bogdan Peace " mood (mental status exam) pleasant Bogdan Peace " mental status assessment, speech activity normal flow, normal pace, normal pressure, normal rate, normal tone, normal volume, spontaneous Bogdan Peace " mental status assessment, motor activity normal gait, normal posture Bogdan Peace " behavior (mental status exam) appropriate, candid, cooperative, good eye contact, polite, responsive Bogdan Peace " mental appearance (mental status exam) adequate hygiene, appropriate dress, looks like stated age, elijah Mcfadden Peace mental status assessment, judgment good [facility] Peace " insight (mental status exam) good Bogdan Peace " Mental Status Exam: intelligence adequate fund of information, intact memory processes, oriented to person, oriented to place, oriented to time, oriented to situation, oriented to reality Bogdan Peace " hallucinations none Bogdan Peace " thought content (mental status exam) (E&M) lucid Bogdan Peace " mental status assessment, process able to abstract, goal-directed, logical Bogdan Peace " mental status assessment, sensorium alert, attentive, clear Bogdan Peace " affect (mental status exam) congruent, normal intensity, normal range Bogdan Peace " mood (mental status exam) pleasant Bogdan Peace " mental status assessment, speech activity normal flow, normal pace, normal pressure, normal rate, normal tone, normal volume, spontaneous Bogdan Peace " mental status assessment, motor activity normal gait, normal posture Bogdan Peace " behavior (mental status exam) appropriate, candid, cooperative, good eye contact, polite, responsive Bogdan Peace " mental appearance (mental status exam) adequate hygiene, appropriate dress, looks like stated age, elijah Mcfadden Peace mental status assessment, judgment good Bogdan Peace " insight (mental status exam) good Bogdan Peace " Mental Status Exam: intelligence adequate fund of information, intact memory processes, oriented to person, oriented to place, oriented to time, oriented to situation, oriented to reality Bogdan Peace " hallucinations none Bogdan Peace " thought content (mental status exam) (E&M) lucid Bogdan Peace " mental status assessment, process able to abstract, goal-directed, logical Bogdan Peace " mental status assessment, sensorium alert, attentive, clear Bogdan Peace " affect (mental status exam) congruent, normal intensity, normal range Bogdan Peace " mood (mental status exam) pleasant Bogdan Peace " mental status assessment, speech activity normal flow, normal pace, normal pressure, normal rate, normal tone, normal volume, spontaneous Bogdan Peace " mental status assessment, motor activity normal gait, normal posture Bogdan Peace " behavior (mental status exam) appropriate, candid, cooperative, good eye contact, polite, responsive Bogdan Peace " mental appearance (mental status exam) adequate hygiene, appropriate dress, looks like stated age, elijah [facility] Peace mental status assessment, judgment good [facility]dan Peace " insight (mental status exam) good Bogdan Peace " Mental Status Exam: intelligence adequate fund of information, intact memory processes, oriented to person, oriented to place, oriented to time, oriented to situation, oriented to reality Bogdan Peace " hallucinations none Bogdan Peace " thought content (mental status exam) (E&M) lucid Bogdan Peace " mental status assessment, process able to abstract, goal-directed, logical Bogdan Peace " mental status assessment, sensorium alert, attentive, clear Bogdan Peace " affect (mental status exam) euthymic, normal intensity, normal range Bogdan Peace " mood (mental status exam) pleasant Bogdan Peace " mental status assessment, speech activity normal flow, normal pace, normal pressure, normal rate, normal tone, normal volume, spontaneous Bogdan Peace " mental status assessment, motor activity normal gait, normal posture Bogdan Peace " behavior (mental status exam) appropriate, candid, cooperative, good eye contact, polite, responsive Bogdan Peace " mental appearance (mental status exam) adequate hygiene, appropriate dress, looks like stated age, elijah [facility] Peace mental status assessment, judgment good [facility]dan Peace " insight (mental status exam) good Bogdan Peace " Mental Status Exam: intelligence adequate fund of information, intact memory processes, oriented to person, oriented to place, oriented to time, oriented to situation, oriented to reality Bogdan Peace " hallucinations none Bogdan Peace " thought content (mental status exam) (E&M) lucid Bogdan Peace " mental status assessment, process able to abstract, goal-directed, logical Bogdan Peace " mental status assessment, sensorium alert, attentive, clear Bogdan Peace " affect (mental status exam) euthymic, normal intensity, normal range Bogdan Peace " mood (mental status exam) anxious, depressed, frustrated, pleasant, sad Bogdan Peace " mental status assessment, speech activity normal flow, normal pace, normal pressure, normal rate, normal tone, normal volume, spontaneous Bogdan Peace " mental status assessment, motor activity normal gait, normal posture Bogdan Peace " behavior (mental status exam) appropriate, candid, cooperative, good eye contact, polite, responsive Bogdan Peace " mental appearance (mental status exam) adequate hygiene, appropriate dress, looks like stated age, elijah Hand mental status assessment, judgment good [facility] Peace " insight (mental status exam) good [facility] Peace " Mental Status Exam: intelligence adequate fund of information, intact memory processes, oriented to person, oriented to place, oriented to time, oriented to situation, oriented to reality Bogdan Peace " hallucinations none [facility]dan Peace " thought content (mental status exam) (E&M) lucid Bogdan Peace " mental status assessment, process able to abstract, goal-directed, logical Bogdan Peace " mental status assessment, sensorium alert, attentive, clear Bogdan Peace " affect (mental status exam) euthymic, normal intensity, normal range Bogdan Peace " mood (mental status exam) anxious, depressed, frustrated, pleasant, sad Bogdan Peace " mental status assessment, speech activity normal flow, normal pace, normal pressure, normal rate, normal tone, normal volume, spontaneous Bogdan Peace " mental status assessment, motor activity normal gait, normal posture Bogdan Peace " behavior (mental status exam) appropriate, candid, cooperative, good eye contact, polite, responsive Bogdan Peace " mental appearance (mental status exam) adequate hygiene, appropriate dress, looks like stated elijah saleh mental status assessment, judgment good Olga Fernandes " insight (mental status exam) good Olga Fernandes " Mental Status Exam: intelligence adequate fund of information, intact memory processes, oriented to person, oriented to place, oriented to time, oriented to situation, oriented to reality Olga Fernandes " hallucinations none Olga Fernandes " thought content (mental status exam) (E&M) lucid Olga Fernandes " mental status assessment, process able to abstract, goal-directed, logical Olga Fernandes " mental status assessment, sensorium alert, attentive, clear Olga Fernandes " affect (mental status exam) congruent, euthymic, normal intensity, normal range, anxious Olga Fernandes " mood (mental status exam) anxious, depressed, frustrated, pleasant, sad Olga Fernandes " mental status assessment, speech activity normal flow, normal pace, normal pressure, normal rate, normal tone, normal volume, spontaneous Olga Fernandes " mental status assessment, motor activity normal gait, normal posture Olga Fernandes " behavior (mental status exam) appropriate, candid, cooperative, good eye contact, polite, responsive Olga Fernandes " mental appearance (mental status exam) adequate hygiene, appropriate dress, looks like stated age, neat Olga Fernandes mood (mental status exam) pleasant Bogdan Peace " mental status assessment, judgment good Bogdan Peace " insight (mental status exam) good Bogdan Peace " Mental Status Exam: intelligence adequate fund of information, intact memory processes, oriented to person, oriented to place, oriented to time, oriented to situation, oriented to reality Bogdan Peace " hallucinations none Bogdan Peace " thought content (mental status exam) (E&M) lucid Bogdan Peace " mental status assessment, process able to abstract, goal-directed, logical Bogdan Peace " mental status assessment, sensorium alert, attentive, clear Bogdan Peace " affect (mental status exam) congruent, euthymic, normal intensity, normal range Bogdan Peace " mental status assessment, speech activity normal flow, normal pace, normal pressure, normal rate, normal tone, normal volume, spontaneous Bogdan Peace " mental status assessment, motor activity normal gait, normal posture Bogdan Peace " behavior (mental status exam) appropriate, candid, cooperative, good eye contact, polite, responsive Bogdan Peace " mental appearance (mental status exam) adequate hygiene, appropriate dress, looks like stated age, neat Bogdan Peace mood (mental status exam) anxious, depressed, frustrated Olga Fernandes " mental status assessment, judgment good Olga Fernandes " insight (mental status exam) good Olga Fernandes " Mental Status Exam: intelligence adequate fund of information, intact memory processes, oriented to person, oriented to place, oriented to time, oriented to situation, oriented to reality Olga Fernandes " hallucinations none Olga Fernandes " thought content (mental status exam) (E&M) lucid Olga Fernandes " mental status assessment, process able to abstract, goal-directed, logical Olga Fernandes " mental status assessment, sensorium alert, attentive, clear Olga Fernandes " affect (mental status exam) congruent, normal intensity, normal range Olga Fernandes " mental status assessment, speech activity normal flow, normal pace, normal pressure, normal rate, normal tone, normal volume, spontaneous Olga Fernandes " mental status assessment, motor activity normal gait, normal posture Olga Fernandes " behavior (mental status exam) appropriate, candid, cooperative, good eye contact, polite, responsive Olga Fernandes " mental appearance (mental status exam) adequate hygiene, appropriate dress, looks like stated age, neat Olga Fernandes " anxiety worry a lot, sleep disturbance, restlessness, irritability, many physical complaints, panic attacks, muscle tension Olga Fernandes mental status assessment, judgment good Bogdan Lewiskins " insight (mental status exam) good Bogdan Peace " Mental Status Exam: intelligence adequate fund of information, intact memory processes, oriented to person, oriented to place, oriented to time, oriented to situation, oriented to reality Bogdan Peace " hallucinations none Bogdan Peace " thought content (mental status exam) (E&M) lucid Bogdan Peace " mental status assessment, process able to abstract, goal-directed, logical Bogdan Peace " mental status assessment, sensorium alert, attentive, clear Bogdan Peace " affect (mental status exam) congruent, normal intensity, normal range Bogdan Peace " mental status assessment, speech activity normal flow, normal pace, normal pressure, normal rate, normal tone, normal volume, spontaneous Bogdan Peace " mental status assessment, motor activity normal gait, normal posture Bogdan Peace " behavior (mental status exam) appropriate, candid, cooperative, good eye contact, polite, responsive Bogdan Peace " mental appearance (mental status exam) adequate hygiene, appropriate dress, looks like stated age, neat Bogdan Peace mental status assessment, judgment good Bogdan Peace " insight (mental status exam) good Bogdan Peace " Mental Status Exam: intelligence adequate fund of information, intact memory processes, oriented to person, oriented to place, oriented to time, oriented to situation, oriented to reality Bogdan Peace " hallucinations none Bogdan Epace " thought content (mental status exam) (E&M) lucid Bogdan Peace " mental status assessment, process able to abstract, goal-directed, logical Bogdan Peace " mental status assessment, sensorium alert, attentive, clear Bogdan Peace " affect (mental status exam) congruent, normal intensity, normal range Bogdan Peace " mental status assessment, speech activity normal flow, normal pace, normal pressure, normal rate, normal tone, normal volume, spontaneous Bogdan Peace " mental status assessment, motor activity normal gait, normal posture Bogdan Peace " behavior (mental status exam) appropriate, candid, cooperative, good eye contact, polite, responsive Bogdan Peace " mental appearance (mental status exam) adequate hygiene, appropriate dress, looks like stated age, elijah Mcfadden Peace mental status assessment, judgment good Bogdan Peace " insight (mental status exam) good Bogdan Peace " Mental Status Exam: intelligence adequate fund of information, intact memory processes, oriented to person, oriented to place, oriented to time, oriented to situation, oriented to reality Bogdan Peace " hallucinations auditory Bogdan Peace " thought content (mental status exam) (E&M) lucid Bogdan Peace " mental status assessment, process able to abstract, goal-directed, logical Bogdan Peace " mental status assessment, sensorium alert, attentive, clear Bogdan Peace " affect (mental status exam) congruent, normal intensity, normal range Bogdan Peace " mental status assessment, speech activity normal flow, normal pace, normal pressure, normal rate, normal tone, normal volume, spontaneous Bogdan Peace " mental status assessment, motor activity normal gait, normal posture Bogdan Peace " behavior (mental status exam) appropriate, candid, cooperative, good eye contact, polite, responsive Bogdan Peace " mental appearance (mental status exam) adequate hygiene, appropriate dress, looks like stated age, elijah [facility] Peace mental status assessment, judgment good Bogdan Peace " insight (mental status exam) good Bogdan Peace " Mental Status Exam: intelligence adequate fund of information, intact memory processes, oriented to person, oriented to place, oriented to time, oriented to situation, oriented to reality Bogdan Peace " hallucinations none Bogdan Peace " thought content (mental status exam) (E&M) lucid Bogdan Peace " mental status assessment, process able to abstract, goal-directed, logical Bogdan Peace " mental status assessment, sensorium alert, attentive, clear Bogdan Peace " affect (mental status exam) congruent, normal intensity, normal range Bogdan Peace " mental status assessment, speech activity normal flow, normal pace, normal pressure, normal rate, normal tone, normal volume, spontaneous Bogdan Peace " mental status assessment, motor activity normal gait, normal posture Bogdan Peace " behavior (mental status exam) appropriate, candid, cooperative, good eye contact, polite, responsive, tearful Bogdan Peace " mental appearance (mental status exam) adequate hygiene, appropriate dress, looks like stated age, elijah Mcfadden Peace mental status assessment, judgment good Bogdan Peace " insight (mental status exam) good Bogdan Peace " Mental Status Exam: intelligence adequate fund of information, intact memory processes, oriented to person, oriented to place, oriented to time, oriented to situation, oriented to reality Bogdan Peace " hallucinations none Bogdan Peace " thought content (mental status exam) (E&M) lucid Bogdan Peace " mental status assessment, process able to abstract, goal-directed, logical Bogdan Peace " mental status assessment, sensorium alert, attentive, clear Bogdan Peace " affect (mental status exam) congruent, normal intensity, normal range Bogdan Peace " mental status assessment, speech activity normal flow, normal pace, normal pressure, normal rate, normal tone, normal volume, spontaneous Bogdan Peace " mental status assessment, motor activity normal gait, normal posture Bogdan Peace " behavior (mental status exam) appropriate, candid, cooperative, good eye contact, polite, responsive, tearful Bogdan Peace " mental appearance (mental status exam) adequate hygiene, appropriate dress, looks like stated age, elijah Lewiskins mental status assessment, judgment good Bogdan Peace " insight (mental status exam) good Bogdan Peace " Mental Status Exam: intelligence adequate fund of information, intact memory processes, oriented to person, oriented to place, oriented to time, oriented to situation, oriented to reality Bogdan Peace " hallucinations none Bogdan Peace " thought content (mental status exam) (E&M) lucid Bogdan Peace " mental status assessment, process able to abstract, goal-directed, logical Bogdan Peace " mental status assessment, sensorium alert, attentive, clear Bogdan Peace " affect (mental status exam) normal intensity, normal range Bogdan Peace " mental status assessment, speech activity normal flow, normal pace, normal pressure, normal rate, normal tone, normal volume, spontaneous Bogdan Peace " mental status assessment, motor activity normal gait, normal posture, fidgety Bogdan Peace " behavior (mental status exam) appropriate, candid, cooperative, good eye contact, polite, responsive, tearful Bogdan Peace " mental appearance (mental status exam) adequate hygiene, appropriate dress, looks like stated age, neat Bogdan Peace mental status assessment, judgment good Bogdan Peace " insight (mental status exam) good Bogdan Peace " Mental Status Exam: intelligence adequate fund of information, intact memory processes, oriented to person, oriented to place, oriented to time, oriented to situation, oriented to reality Bogdan Peace " hallucinations none Bogdan Peace " thought content (mental status exam) (E&M) lucid Bogdan Peace " mental status assessment, process able to abstract, goal-directed, logical Bogdan Peace " mental status assessment, sensorium alert, attentive, clear Bogdan Peace " affect (mental status exam) normal intensity, normal range Bogdan Peace " mental status assessment, speech activity normal flow, normal pace, normal pressure, normal rate, normal tone, normal volume, spontaneous Bogdan Peace " mental status assessment, motor activity normal gait, normal posture, fidgety Bogdan Peace " behavior (mental status exam) appropriate, candid, cooperative, good eye contact, polite, responsive, tearful Bogdan Peace " mental appearance (mental status exam) adequate hygiene, appropriate dress, looks like stated age, neat Bogdan Peace " anxiety worry a lot, sleep disturbance, irritability, panic attacks Bogdan Peace MEDICAL EQUIPMENT No Information Available FAMILY HISTORY No Information Available INSURANCE PROVIDERS Payer name Policy type / Coverage type Covered alliance party ID [employer] [id number] ADVANCE DIRECTIVES No Information Available TREATMENT PLAN Date Name Lipid Panel Comp. Metabolic Panel (14) CBC With Differential/Platelet Est Patient Detailed - 26975 Est Patient Detailed - 79098 Est Patient Exp Problem - 54238 Est Patient Exp Problem - 64899 Psychotherapy 45 (38-52*) min - 43562 (with patient and/or family member) Est Patient Detailed - 92052 Est Patient Detailed - 41055 Est Patient Exp Problem - 82542 Est Patient Detailed - 34703 Est Patient Detailed - 77903 Est Patient Exp Problem - 30047 Psychotherapy 45 (38-52*) min - 75730 (with patient and/or family member) Est Patient Exp Problem - 34700 Diagnostic evaluation (no medical) - 25071 Est Patient Detailed - 88366 Est Patient Detailed - 20660 Est Patient Detailed - 59558 Est Patient Detailed - 85878 Est Patient Detailed - 16975 Est Patient Detailed - 87919 Diagnostic evaluation with medical - 52685 HISTORY OF PROCEDURES Procedure Date Procedure Name Provider Procedure Notes Status Psychotherapy 45 (38-52*) min - 13017 (with patient and/or family member) Olga Fernandes completed Psychotherapy 45 (38-52*) min - 03830 (with patient and/or family member) Olga Fernandes completed Diagnostic evaluation (no medical) - 33595 Olga Fernandes completed Diagnostic evaluation with medical - 65586 Bogdan Hand completed GOALS No Information Available HEALTH CONCERNS No Information Available
--- OUTSIDE RECORDS SUMMARY | 2019-04-22 08:26 | XMS REPORT ---
Author Author Admin, [place] Organization Unknown Address Unknown Phone Unavailable PROBLEMS Condition Status Date Provider Notes DEPRESSIVE DISORDER, MAJOR, RECURRENT EPISODE, W/ PSYCHOTIC FEATURES active Bogdan Peace INSOMNIA DISORDER, PERSISTENT active Bogdan Peace PANIC DISORDER active Bogdan Peace PTSD active Bogdan Peace ENCOUNTERS Date Type Provider Location Encounter Diagnosis - Ambulatory Encounter Bogdan Peace Bogdan Peace [facility] UNK - Ambulatory Encounter Bogdan Peace Bogdan Peace Chacho Qiu [facility] UNK - Ambulatory Encounter Bogdan Peace Bogdan Peace Renetta Saravia [facility] UNK - Ambulatory Encounter Yulia Fu [facility] UNK - Ambulatory Encounter Bogdan Peace Bogdan Peace Yulia Lee [facility] UNK - Ambulatory Encounter Bogdan Peace Bogdan Peace [facility] UNK - Ambulatory Encounter Olga Fernandes [facility] UNK - Ambulatory Encounter Bogdan Peace Bogdan Peace Yulia Lee [facility] UNK - Ambulatory Encounter Bogdan Peace Bogdan Peace Yulia Lee [facility] UNK - Ambulatory Encounter Bogdan Peace Bogdan Peace Yulia Lee [facility] UNK - Ambulatory Encounter Bogdan Peace Bogdan Peace Yulia [facility] UNK - Ambulatory Encounter Bogdan Peace Bogdan Peace Yulia Lee [facility] UNK - Ambulatory Encounter Bogdan Peace Bogdan Peace Yulia Lee [facility] UNK - Ambulatory Encounter Bogdan Peace Bogdan Peace [facility] UNK - Ambulatory Encounter Bogdan Peace Bogdan Peace Yulia Jesus [facility] UNK - Ambulatory Encounter Bogdan Peace Bogdan Peace Gauri Sasha [facility] UNK - Ambulatory Encounter Yulia Jesus [facility] UNK - Ambulatory Encounter Olga Dom [facility] UNK - Ambulatory Encounter Bogdan Peace Bogdan Peace [facility] UNK - Ambulatory Encounter Bogdan Peace Bogdan Peace Yulia Lee [facility] UNK - Ambulatory Encounter Bogdan Peace Bogdan Peace Yulia Lee [facility] UNK - Ambulatory Encounter Olga Dom [facility] UNK - Ambulatory Encounter Bogdan Peace Bogdan Peace [facility] UNK - Ambulatory Encounter Bogdan Peace Bogdan Peace Yulia Lee [facility] UNK - Ambulatory Encounter Bogdan Peace Obgdan Peace [facility] UNK - Ambulatory Encounter Bogdan Peace Bogdan Peace [facility] UNK - Ambulatory Encounter Bogdan Peace Bogdan Peace [employer] [facility] UNK - Ambulatory Encounter Bogdan Peace Bogdan Peace [employer] [facility] UNK - Ambulatory Encounter Bogdan Peace Bogdan Peace [employer] [facility] UNK - Ambulatory Encounter Bogdan Peace Bogdan Peace [employer] [facility] UNK - Ambulatory Encounter Bogdan Peace Bogdan Peace [facility] UNK - Ambulatory Encounter Bogdan Peace Bogdan Peace [facility] UNK - Ambulatory Encounter Bogdan Peace Bogdan Peace [employer] [facility] UNK - Ambulatory Encounter Bogdan Peace Bogdan Peace [employer] [facility] UNK - Ambulatory Encounter Bogdan Peace Bogdan Peace [employer] [facility] UNK - Ambulatory Encounter Bogdan Peace Bogdan Peace Yulia Lee [facility] UNK - Ambulatory Encounter Bogdan Peace Bogdan Peace Yulia Lee [facility] UNK - Ambulatory Encounter Bogdan Peace Bogdan Peace [employer] [facility] UNK - Ambulatory Encounter Bogdan Peace Bogdan Peace Yulia Lee [facility] DEPRESSIVE DISORDER, MAJOR, RECURRENT EPISODE, W/ PSYCHOTIC FEATURES - Ambulatory Encounter Yulia Palafox [facility] UNK - Ambulatory Encounter Bogdan Peace Bogdan Peace Yulia Lee [facility] UNK - Ambulatory Encounter Bogdan Peace Bogdan Peace [employer] [facility] UNK - Ambulatory Encounter Yulia Bryaniega [facility] UNK - Ambulatory Encounter Bogdan Peaceshane Mcfadden Peace [facility] UNK - Ambulatory Encounter Bogdan Mcfadden Peace Yulia Lee [facility] PTSDPANIC DISORDERINSOMNIA DISORDER, PERSISTENT - Ambulatory Encounter Socorro Bailey [facility] UNK - Ambulatory Encounter [facility] UNK VITAL SIGNS No Information Available Allergies No Known Allergy Information REASON FOR REFERRAL No Information Available RESULTS No Information Available HISTORY OF IMMUNIZATIONS No Information Available HISTORY [...] one tablet By Mouth daily - Bogdan Lewiskins AMITRIPTYLINE HCL 150 MG ORAL TABLET Take two tablets By Mouth at bedtime Bogdan Peace LUNESTA 3 MG ORAL TABLET Take one tablet By Mouth at bedtime - Bogdan Peace ZYPREXA 10 MG ORAL TABLET Take one tablet By Mouth daily - Bogdan Peace PRAZOSIN HCL 5 MG ORAL CAPSULE Take 3 capsules By Mouth at bedtime Bogdan Peace LUNESTA 3 MG ORAL TABLET Take one tablet at bedtime - Bogdan Peace VALIUM 10 MG ORAL TABLET Take one tablet By Mouth at bedtime for breakthrough anxiety Bogdan Peace LEXAPRO 20 MG ORAL TABLET Take one tablet By Mouth daily with the 10mg tablet Bogdan Peace SOCIAL HISTORY Date Observation Value Provider social history E&M after 14 years of marriage, left home in Fall 2016 City: [place]. State: [place]. 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 State: [place]. 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 Bogdan Peace " social history reviewed E&M reviewed today Bogdan Peace " Exercise Program Referral T Bogdan Peace " Weight Management Counseling Provided T Bogdan Peace " Nutrition intervention T Bogdan Hand " Exercise Program Referral T Bogdan Hand " Weight Management Counseling Provided T Bogdan Hand " Nutrition intervention T Bogdan Hand " drug use, illicit Previously Bogdan Hand " alcohol use Currently Bogdan Hand " smoking status never smoker Bogdan Hand " social history reviewed E&M reviewed today Bogdan Hand " social history E&M after 14 years of marriage, left home in Fall 2016 City: [facility]. State: [place]. 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 Bogdan Hand " family [...] " insight (mental status exam) fair Bogdan Hand " Mental Status Exam: intelligence adequate fund of information, intact memory processes, oriented to person, oriented to place, oriented to time, oriented to situation, oriented to reality Bogdan Hand " hallucinations none Bogdan Hand " thought content (mental status exam) (E&M) lucid Bogdan Hand " mental status assessment, process able to abstract, goal-directed, logical Bogdan Hand " mental status assessment, sensorium alert, attentive, clear Bogdan Hand " affect (mental status exam) congruent, normal intensity, constricted Bogdan Hand " mood (mental status exam) pleasant, "down" Bogdan Hand " mental status assessment, speech activity normal flow, normal pace, normal pressure, normal rate, normal tone, normal volume, spontaneous Bogdan Hand " mental status assessment, motor activity normal gait, normal posture, - Bogdan Hand " behavior (mental status exam) appropriate, candid, cooperative, good eye contact, polite, responsive, - Bogdan Hand " mental appearance (mental status exam) adequate hygiene, appropriate dress, looks like stated age, neat, very casual dress, several tattoos Bogdan Hand mental status assessment, judgment fair Bogdan Peace [...] neat Bogdan Peace mental status assessment, judgment fair Bogdan Peace [...] neat Bogdan Peace mental status assessment, judgment fair Bogdan Peace [...] appropriate dress, looks like stated age, elijah Fernandes mental status assessment, judgment fair Bogdan [...] elijah Lewiskins mental status assessment, judgment good Olga Fernandes [...] appropriate dress, looks like stated age, elijah Díazzano mood (mental status exam) pleasant Bogdan Peace [...] dress, looks like stated age, elijah Bogdan Lewiskins mood (mental status exam) anxious, depressed, frustrated [...] appropriate dress, looks like stated age, elijah Olga Fernandes " anxiety worry a lot, sleep disturbance, restlessness, irritability, many physical complaints, panic attacks, muscle tension Olga Fernandes mental status assessment, judgment good Bgodan Peace " insight (mental status exam) good [...] rate, normal tone, normal volume, spontaneous Bogdan Pecae " mental status assessment, motor activity normal [...] Covered alliance party ID [employer] Medicaid [id number] ADVANCE DIRECTIVES No Information Available TREATMENT PLAN Date Name Lipid Panel Comp. Metabolic Panel (14) CBC With Differential/Platelet Est Patient Detailed - 39164 Est Patient Detailed - 01598 Est Patient Exp Problem - 59824 Est Patient Exp Problem - 26368 Psychotherapy 45 (38-52*) min - 74037 (with patient and/or family member) Est Patient Detailed - 52073 Est Patient Detailed - 96849 Est Patient Exp Problem - 49913 Est Patient Detailed - 71418 Est Patient Detailed - 04580 Est Patient Exp Problem - 08541 Psychotherapy 45 (38-52*) min - 67590 (with patient and/or family member) Est Patient Exp Problem - 39754 Diagnostic evaluation (no medical) - 89102 Est Patient Detailed - 12754 Est Patient Detailed - 50538 Est Patient Detailed - 31855 Est Patient Detailed - 39279 Est Patient Detailed - 38587 Est Patient Detailed - 84285 Diagnostic evaluation with medical - 97203 HISTORY OF PROCEDURES Procedure Date Procedure Name Provider Procedure Notes Status Psychotherapy 45 (38-52*) min - 29288 (with patient and/or family member) Olga Fernandes completed Psychotherapy 45 (38-52*) min - 76927 (with patient and/or family member) Olga Fernandes completed Diagnostic evaluation (no medical) - 30027 Olga Fernandes completed Diagnostic evaluation with medical - 22082 Bogdan Hand completed GOALS No Information Available HEALTH CONCERNS No Information Available
[2019-04-22] MEDS ORDERED: LOPERAMIDE HCL 2 MG CAP PO ONE (08:45)
[2019-04-22] MEDS ORDERED: KETOROLAC TROMETHAMINE 60 MG/2 ML VIAL IM ONE (08:45)
[2019-04-22] MEDS ORDERED: DICYCLOMINE HCL 20 MG/2 ML VIAL IM ONE (08:45)
[2019-04-22 09:00] LABS: BILIRUBIN,URINE NEGATIVE (NEGATIVE); CLARITY,URINE SL CLOUDY (CLEAR); COLOR,URINE YELLOW (YELLOW); KETONES,URINE NEGATIVE (NEGATIVE); LEUKOCYTE ESTERASE ,URINE TRACE (NEGATIVE); NITRITE,URINE NEGATIVE (NEGATIVE); PROTEIN,URINE DIPSTICK NEGATIVE (NEGATIVE); URINE UROBILINOGEN 0.2 mg/dL (0.2 - 1)
--- NOTE | 2019-04-22 09:01 | Diagnostic Imaging Report ---
Exam: KUB - 2 views Indication: Abdominal Pain Comparison: CT abdomen and pelvis of 02/26/2019 Findings: Nonobstructive bowel gas pattern. No free air. Status post cholecystectomy and ventral hernia mesh repair. The osseous structures appear unremarkable. Partially visualized lung bases appear clear. Impression: No acute radiographic abnormality. Signed by: Leta Fink MD on 04/22/2019 8:58 AM
[2019-04-22 09:03] LABS: PREGNANCY TEST, URINE NEGATIVE (NEGATIVE)
[2019-04-22 09:16] LABS: RBC,URINE 0-5 /HPF (0-5)
[2019-04-22 09:17] LABS: BACTERIA,URINE MANY /HPF; EPITHELIAL CELLS,URINE FEW /LPF
[2019-04-22] MEDS ORDERED: FAMOTIDINE 20 MG/2 ML VIAL IV STA (11:35)
[2019-04-22] MEDS ORDERED: ACETAMINOPHEN 1000 MG/100 ML IV STA (11:35)
[2019-04-22] MEDS ORDERED: CEFTRIAXONE SOD 1 GM/NS 50 ML 50 ML IV ONE (11:45)
[2019-04-22] MEDS ORDERED: SODIUM CHLORIDE 0.9% 1000ML 1,000 ML IV ONE (11:45)
[2019-04-22 12:29] VITALS: BP 124/72
== END 2019-04-22 12:42 | disposition home or self-care (01) ==
LOC: ER 08:20
DX: R10.84 Generalized abdominal pain (principal); R11.2 Nausea with vomiting, unspecified; R19.7 Diarrhea, unspecified; N39.0 Urinary tract infection, site not specified
CPT/HCPCS: 74019; 81001; 81025; 87086; 87186; 99283; J0500; J0696; J1885; J7030

== ENCOUNTER 2019-04-28 07:19 | Emergency (ER) | payer OTHER ==
[~2019-04-28] VITALS: Ht 162.6 cm; Wt 99.8 kg
[2019-04-28 07:43] LABS: BILIRUBIN,URINE NEGATIVE (NEGATIVE); CLARITY,URINE CLEAR (CLEAR); COLOR,URINE YELLOW (YELLOW); KETONES,URINE NEGATIVE (NEGATIVE); LEUKOCYTE ESTERASE ,URINE NEGATIVE (NEGATIVE); NITRITE,URINE NEGATIVE (NEGATIVE); PROTEIN,URINE DIPSTICK NEGATIVE (NEGATIVE); URINE UROBILINOGEN 0.2 mg/dL (0.2 - 1)
[2019-04-28] MEDS ORDERED: DICYCLOMINE HCL 20 MG/2 ML VIAL IM ONE (07:45)
[2019-04-28 07:51] LABS: AMPHETAMINES SCREEN,URINE NEGATIVE (NEGATIVE); BENZODIAZEPINES SCREEN,URINE POSITIVE (NEGATIVE); PHENCYCLIDINE SCREEN,URINE NEGATIVE (NEGATIVE)
[2019-04-28 07:59] LABS: EPITHELIAL CELLS,URINE RARE /LPF; RBC,URINE 0-5 /HPF (0-5); WBC,URINE (MAN) 0-5 /HPF (0-5)
[2019-04-28 08:00] LABS: BACTERIA,URINE FEW /HPF
[2019-04-28 08:36] VITALS: BP 125/102
== END 2019-04-28 08:41 | disposition home or self-care (01) ==
LOC: ER 07:19
DX: R10.12 Left upper quadrant pain (principal); E66.01 Morbid (severe) obesity due to excess calories; Z68.37 Body mass index [BMI] 37.0-37.9, adult
CPT/HCPCS: 80307; 81001; 87086; 87186; 99283; J0500

== ENCOUNTER → 2019-10-30 | Emergency (ER) | payer OTHER ==
[~2019-10-30] VITALS: Ht 162.6 cm; Wt 99.8 kg
[~2019-10-30] MED LIST changes: +CEFTRIAXONE SOD 1 GM/NS 50 ML 50 ML IV STA; +CIPROFLOXACIN 400 MG/D5W 200ML 200 ML IV ONE; +KETOROLAC TROMETHAMINE 30 MG/ML VIAL IV NR; +METHYLPREDNISOLONE SOD SUCC 125 MG/2ML VIAL IV ONE; +MORPHINE SULFATE INJ 4 MG/ML INJ 1ML IV ONE; +ONDANSETRON HCL INJ 2MG/ML 2ML 2 MG/ML VIAL IV NR; +SODIUM CHLORIDE 0.9% 1000ML 1,000 ML IV STA
--- OUTSIDE RECORDS SUMMARY | 2019-10-30 13:56 | XMS REPORT | Clinical Summary ---
Author Author RICK [facility] Address Unknown Phone Unavailable Care Team Providers Care Community Health Program Representative Name Role Phone Sharpless PCP Unavailable Allergies Comments Active Allergy Reactions Severity Noted Date Codeine 10/25/2017 Tramadol 10/25/2017 Medications Not on file Active Problems Problem Noted Date Abdominal pain, unspecified abdominal location 10/25 Nausea vomiting and diarrhea 10/25/2017 Mild dehydration [...] Not on file Results Not on fileafter 10/29/2018 Insurance Payer Benefit Subscriber ID Type Phone Address Plan / Group MEDICAID - MEDICAID MGD MEDICAID xxxxxxxxx [employer] id [employer] Non-Contra cted (Home) [place] [address]
--- OUTSIDE RECORDS SUMMARY | 2019-10-30 13:56 | XMS REPORT | Clinical Summary ---
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
--- OUTSIDE RECORDS SUMMARY | 2019-10-30 14:02 | XMS REPORT ---
Author Author Admin, [place]y [place] Organization Unknown Address Unknown Phone Unavailable PROBLEMS Condition Status Date Provider Notes DEPRESSIVE DISORDER, MAJOR, RECURRENT EPISODE, W/ PSYCHOTIC FEATURES active Bogdan Peace INSOMNIA DISORDER, PERSISTENT active Bogdan Lark ins PANIC DISORDER active Bogdan Peace PTSD active Bogdan Peace ENCOUNTERS Date Type Provider Location Encounter Diagn osis - Ambulatory Encounter Bogdan Thaddeus s Bogdan Peace Chacho Vidal [facility] UNK - Ambulatory Encounter Bogdan Thaddeus s Bogdan Peace [facility] UNK - Ambulatory Encounter Bogdan Peace Da mien Peace [facility] UNK - Ambulatory Encounter Bogdan Thaddeus s Bogdan Peace Chacho Qiu [facility] UNK - Ambulatory Encounter Bogdan Thaddeus s Bogdan Peace Renetta Saravia [facility] UNK - Ambulatory Encounter Yulia Fu [facility] UNK - Ambulatory Encounter Bogdan Thaddeus s Bogdan Peace Yulia Lee [facility] UNK - Ambulatory Encounter Bogdan Peace Da mien Peace [facility] UNK - Ambulatory Encounter Olga Boykin [facility] UNK - Ambulatory Encounter Bogdan Thaddeus s Bogdan Peace Yulia Lee [facility] UNK - Ambulatory Encounter Bogdan Thaddeus s Bogdan Peace Yulia Lee [facility] UNK - Ambulatory Encounter Bogdan Thaddeus s Bogdan Peace Yulia Lee [facility] UNK - Ambulatory Encounter Bogdan Thaddeus s Bogdan Peace Yulia Lee [facility] UNK - Ambulatory Encounter Bogdan Thaddeus s Bogdan Peace Yulia Lee [facility] UNK - Ambulatory Encounter Bogdan Thaddeus s Bogdan Peace Yulia Lee [facility] UNK - Ambulatory Encounter Bogdan Peace Da mien Peace [facility] UNK - Ambulatory Encounter Bogdan Thaddeus s Bogdan Peaec Yulia Lee [facility] UNK - Ambulatory Encounter Bogdan Thaddeus s Bogdan Peace Gauri Sasha [facility] UNK - Ambulatory Encounter Yulia Boykin [facility] UNK - Ambulatory Encounter Olga Boykin [facility] UNK - Ambulatory Encounter Bogdan Peace Da travon Peace [facility] UNK - Ambulatory Encounter Bogdan Thaddeus s Bogdan Peace Yulia Lee [facility] UNK - Ambulatory Encounter Bogdan Thaddeus s Bogdan Peace Yulia Lee [facility] UNK - Ambulatory Encounter Olga Dom Boykin [facility] UNK - Ambulatory Encounter Bogdan Peace Da mien Peace [facility] UNK - Ambulatory Encounter Bogdan Thaddeus s Bogdan Peace Yulia Lee [facility] UNK - Ambulatory Encounter Bogdan Peace Da justiceen Peace [facility] UNK - Ambulatory Encounter Bogdan Thaddeus s Bogdan Peace [facility] UNK - Ambulatory Encounter Bogdan Thaddeus s Bogdan Peace [facility] UNK - Ambulatory Encounter Bogdan Thaddeus s Bogdan Peace [facility] UNK - Ambulatory Encounter Bogdan Thaddeus s Bogdan Peace [facility] UNK - Ambulatory Encounter Bogdan Thaddeus s Bogdan Peace [facility] UNK - Ambulatory Encounter Bogdan Peace Da travon Lewiskins [facility] UNK - Ambulatory Encounter Bogdan Peace Da justiceen Peace [facility] UNK - Ambulatory Encounter Bogdan Thaddeus s Bogdan Peace [facility] UNK - Ambulatory Encounter Bogdan Thaddeus s Bogdan Peace [facility] UNK - Ambulatory Encounter Bogdan Thaddeus s Bogdan Peace [facility] UNK - Ambulatory Encounter Bogdan Thaddeus s Bogdan Peace Yulia Lee [facility] UNK - Ambulatory Encounter Bogdan Thaddeus s Bogdan Peace Yulia Lee [facility] UNK - Ambulatory Encounter Bogdan Thaddeus s Bogdan Peace [facility] UNK - Ambulatory Encounter Bogdan Thaddeus s Bogdan Peace Yulia Lee [facility] DEPRESSIVE DISORD ER, MAJOR, RECURRENT EPISODE, W/ PSYCHOTIC FEATURES - Ambulatory Encounter Yulia Palafox [facility] UNK - Ambulatory Encounter Bogdan Lee [facility] UNK - Ambulatory Encounter Bogdan Hand [facility] UNK - Ambulatory Encounter Yulia Avila [facility] UNK - Ambulatory Encounter Bogdan Cerna [facility] UNK - Ambulatory Encounter Bogdan Lee [facility] PTSDPANIC DISORDE RINSOMNIA DISORDER, PERSISTENT - Ambulatory Encounter Socorro Zaidi on Any Dhaliwalz [facility] UNK - Ambulatory Encounter Any Garcia [facility] UNK VITAL SIGNS Date Observation Value Provider method used to obtain blood pressure automatic Chacho Qiu " Blood Pressure Position 01 sitting Chacho Qiu " blood pressure, site #1 right arm Chacho Martell ez " blood pressure, diastolic 79 mm[Hg] Chacho jackson " blood pressure, systolic 110 mm[Hg] Chacho shen " pulse rate E&M 114 /min Chacho Qiu " weight E&M 237.13 lbs. Chacho Qiu " weight in kilograms E&M 107.79 kg Chacho Martell ez " height E&M 64 [in_i] Chacho Qiu " height in centimeters E&M 162.56 cm Chacho jackson method used to obtain blood pressure automatic Renetta Rani " Blood Pressure Position 01 sitting Dalil a Rani " blood pressure, site #1 left arm Renetta O rtuno " blood pressure, diastolic 81 mm[Hg] Renetta Rani " blood pressure, systolic 120 mm[Hg] Renetta Rani " pulse rate E&M 97 /min Renetta Rani " weight E&M 236.13 lbs. Renetta Rani " weight in kilograms E&M 107.33 kg Renetta O rtuno " height E&M 64 [in_i] Renetta Rani " height in centimeters E&M 162.56 cm Renetta Rani method used to obtain blood pressure automatic Yulia Lee " Blood Pressure Position 01 sitting Jose L nimesh Lee " weight E&M 232.38 lbs. Bogdan Peace " blood pressure, site #1 left arm Yulia Lee " blood pressure, diastolic 78 mm[Hg] Samy ia Lee " blood pressure, systolic 107 mm[Hg] Jesseni a Lee " pulse rate E&M 102 /min Yulia Lee " weight in kilograms E&M 105.63 kg Bogdan up " height E&M 64 [in_i] Yulia Lee " height in centimeters E&M 162.56 cm Samy ia Lee method used to obtain blood pressure automatic Yulia Lee " Blood Pressure Position 01 sitting Jose L nimesh Lee " blood pressure, site #1 left arm Yulia Lee " blood pressure, diastolic 66 mm[Hg] Samy ia Lee " blood pressure, systolic 105 mm[Hg] Jesseni a Lee " pulse rate E&M 99 /min Yulia Lee " weight E&M 234 lbs. Yulia Lee " weight in kilograms E&M 106.36 kg Yulia Lee " height E&M 64 [in_i] Yulia Lee " height in centimeters E&M 162.56 cm Samy ia Lee method used to obtain blood pressure automatic Yulia Lee " Blood Pressure Position 01 sitting Jose L nimesh Lee " blood pressure, site #1 left arm Yulia Lee " blood pressure, diastolic 68 mm[Hg] Samy ia Lee " blood pressure, systolic 104 mm[Hg] Jesseni a Lee " pulse rate E&M 103 /min Yulia Lee " weight E&M 234.50 lbs. Yulia Lee " weight in kilograms E&M 106.59 kg Yulia Lee " height E&M 64 [in_i] Yulia Lee " height in centimeters E&M 162.56 cm Samy ia Lee method used to obtain blood pressure automatic Yulia Lee " Blood Pressure Position 01 sitting Jose L nimesh Lee " blood pressure, site #1 left arm Yulia Lee " blood pressure, diastolic 73 mm[Hg] Samy ia Lee " blood pressure, systolic 107 mm[Hg] Jesseni a Lee " pulse rate E&M 67 /min Yulia Lee " weight E&M 239 lbs. Yulia Lee " weight in kilograms E&M 108.64 kg Yulia Lee " height E&M 64 [in_i] Yulia Lee " height in centimeters E&M 162.56 cm Samy ia Jesus method used to obtain blood pressure automatic Yulia Lee " Blood Pressure Position 01 sitting Jose L nimesh Lee " blood pressure, site #1 left arm Yulia Lee " blood pressure, diastolic 67 mm[Hg] Samy ia Lee " blood pressure, systolic 115 mm[Hg] Jesseni a Lee " pulse rate E&M 73 /min Yulia Lee " weight E&M 233.99 lbs. Bogdan Peace " weight in kilograms E&M 106.36 kg Bogdan L arkins " height in centimeters E&M 162.56 cm Samy betito Lee " height E&M 64.00 [in_i] Yulia Lee method used to obtain blood pressure automatic Yulia Lee " Blood Pressure Position 01 sitting Jose L nimesh Lee " blood pressure, site #1 left arm Yulia Lee " blood pressure, diastolic 66 mm[Hg] Samy ia Lee " blood pressure, systolic 98 mm[Hg] Jesseni a Lee " pulse rate E&M 88 /min Yulia Lee " weight E&M 230 lbs. Yulia Lee " weight in kilograms E&M 104.55 kg Yulia Lee " height E&M 64 [in_i] Yulia Lee " height in centimeters E&M 162.56 cm Samy ia Lee method used to obtain blood pressure automatic Yulia Lee " Blood Pressure Position 01 sitting Jose L nimesh Lee " blood pressure, site #1 left arm Yulia Lee " blood pressure, diastolic 72 mm[Hg] Samy ia Lee " blood pressure, systolic 101 mm[Hg] Jesseni a Lee " pulse rate E&M 94 /min Yulia Lee " weight E&M 229 lbs. Yulia Lee " weight in kilograms E&M 104.09 kg Yulia Lee " height E&M 64 [in_i] Yulia Lee " height in centimeters E&M 162.56 cm Samy ia Lee method used to obtain blood pressure automatic Yulia Lee " Blood Pressure Position 01 sitting Jose L nimesh Lee " weight E&M 223 lbs. Bogdan Hand " blood pressure, site #1 left arm Yulia Lee " blood pressure, diastolic 60 mm[Hg] Samy ia Lee " blood pressure, systolic 91 mm[Hg] Jesseni a Lee " pulse rate E&M 89 /min Yulia Lee " weight in kilograms E&M 101.36 kg Bogdan up " height E&M 64 [in_i] Yulia Lee " height in centimeters E&M 162.56 cm Samy ia Lee method used to obtain blood pressure automatic Yulia Lee " Blood Pressure Position 01 sitting Jose L nimesh Lee " blood pressure, site #1 left arm Yulia Lee " blood pressure, diastolic 67 mm[Hg] Samy ia Lee " blood pressure, systolic 102 mm[Hg] Jesseni a Lee " pulse rate E&M 75 /min Yulia Lee " weight E&M 222 lbs. Yulia Lee " weight in kilograms E&M 100.91 kg Yulia Lee " height E&M 64 [in_i] Yulia Lee " height in centimeters E&M 162.56 cm Samy ia Lee blood pressure, diastolic 66 mm[Hg] Samy ia Lee " blood pressure, systolic 95 mm[Hg] Jesseni a Lee " weight E&M 221 lbs. Bogdan Peace " weight in kilograms E&M 100.45 kg Bogdan L arkins " pulse rate E&M 88 /min Yulia Lee " height E&M 64 [in_i] Bogdan Peace " height in centimeters E&M 162.56 cm Bogdan [facility] method used to obtain blood pressure automatic Yulia Lee " Blood Pressure Position 01 sitting Jose L nimesh Lee " blood pressure, site #1 left arm Yulia Lee " blood pressure, diastolic 63 mm[Hg] Samy ia Lee " blood pressure, systolic 105 mm[Hg] Jesseni a Lee " pulse rate E&M 74 /min Yulia Lee " weight E&M 218 lbs. Yulia Lee " weight in kilograms E&M 99.09 kg Yulia Lee " height E&M 64 [in_i] Yulia Lee " height in centimeters E&M 162.56 cm Samy ia Lee method used to obtain blood pressure automatic Yulia Lee " Blood Pressure Position 01 sitting Jose L nimesh Lee " weight E&M 224 lbs. Bogdan Peace " weight in kilograms E&M 101.82 kg Bogdan kumarikins " blood pressure, site #1 left arm Yulia Lee " blood pressure, diastolic 73 mm[Hg] Samy betito Randhawaa " blood pressure, systolic 109 mm[Hg] Jesseni a Lee " pulse rate E&M 74 /min Yulia Lee " height E&M 64 [in_i] Bogdan Peace " height in centimeters E&M 162.56 cm [facility] method used to obtain blood pressure automatic Yulia Lee " Blood Pressure Position 01 sitting Jose L nimesh Lee " blood pressure, site #1 left arm Yulia Lee " blood pressure, diastolic 81 mm[Hg] Samy ia Lee " blood pressure, systolic 114 mm[Hg] Jesseni a Lee " pulse rate E&M 101 /min Yulia Ele " weight E&M 215 lbs. Yulia Lee " weight in kilograms E&M 97.73 kg Yulia Randhawaa " height E&M 64 [in_i] Yulia Lee " height in centimeters E&M 162.56 cm Samy betito Lee method used to obtain blood pressure automatic Yulia Lee " Blood Pressure Position 01 sitting Jose L nimesh Lee " blood pressure, site #1 left arm Yulia Lee " blood pressure, diastolic 80 mm[Hg] Samy betito Lee " blood pressure, systolic 113 mm[Hg] Jesseni a Lee " pulse rate E&M 90 /min Yulia Lee " weight E&M 213.13 lbs. Yulia Lee " weight in kilograms E&M 96.88 kg Yulia Lee " height E&M 64 [in_i] Yulia Lee " height in centimeters E&M 162.56 cm Samy betito Lee weight E&M 222.25 lbs. Bogdanlizzette Lewiskins " weight in kilograms E&M 101.02 kg Bogdan Ashutosh up " method used to obtain blood pressure automatic Yulia Lee " Blood Pressure Position 01 sitting Jose L Lee " blood pressure, site #1 left arm Yulia Lee " blood pressure, diastolic 85 mm[Hg] Samy betito Lee " blood pressure, systolic 133 mm[Hg] Elroysseni a Lee " pulse rate E&M 71 /min Yulia Lee " height E&M 64 [in_i] Bogdan Peace " height in centimeters E&M 162.56 cm Bogdan Peace Allergies No Known Allergy Information REASON FOR REFERRAL No Information Available RESULTS Date Observation Value Provider Reference Range Interpretati on Location LDL cholesterol, serum 113 mg/dL [facility] [...] " urea nitrogen/creatinine ratio, serum 14 [facility] 9 -23 " eGFR if 116 mL/min/((173/100).m2) [facility] >59 " Estimated Glomerular Filtration Rate (calc) 101 mL/min/((173/100).m2) [facility] >59 " creatinine, serum 0.74 mg/dL [facility] 0.57-1.00 " urea nitrogen, blood 10 mg/dL [facility] 6-24 " blood glucose, random 125 mg/dL [facility] 65-99 High " immature granulocytes, percentage of total cells, bloo d 0 % [facility] Not Estab. " basophil count, absolute 0.0 x10E3/uL [facility] 0.0-0.2 " Eosinophil Absolute Count 0.1 X10E3/UL [facility] 0.0-0.4 " monocyte count, blood, automated 0.3 X10E3/UL [facility] 0.1 -0.9 " lymphocyte count, blood, automated 1.9 X10E3/UL [facility] 0 .7-3.1 " Absolute Neutrophils 2.9 X10E3/UL [facility] 1.4-7.0 " basophils as percent of blood leukocytes 1 % [facility] Not Estab. " eosinophils as percent of blood leukocytes 2 % [facility] Not Estab. " monocytes as percent of blood leukocytes 5 % [facility] Not Estab. " lymphocytes as percent of blood leukocytes 36 % [facility] Not Estab. " neutrophils as percent of blood leukocytes 56 % [facility] Not Estab. " platelet count 231 X10E3/UL [facility] 150-450 " red blood cell distribution width 14.6 % [facility] 12.3- 15.4 " mean corpuscular hemoglobin concentration, RBC 32.4 G/DL [facility] 31.5-35.7 " mean corpuscular hemoglobin, RBC 29.4 pg [facility] 26.6-3 3.0 " mean corpuscular volume, RBC 91 fL [...] Take one tablet By Mouth at bedtime 20 17/11/18 Bogdan Hand LEXAPRO 10 MG ORAL TABLET Take one tablet By Mouth daily wit h the 20mg tablet Bogdan Hand KLONOPIN 2 MG ORAL TABLET Take one tablet By Mouth daily as needed for anxiety Bogdan Hand TRAZODONE HCL 300 MG ORAL TABLET Take one tablet By Mouth at bed time Bogdan Hand WELLBUTRIN XL 150 MG ORAL TABLET EXTENDED RELEASE 24 H OUR Take one tablet By Mouth daily - Bogdan Hand AMITRIPTYLINE HCL 150 MG ORAL TABLET Take two tablets By Alysha th at bedtime Bogdan Hand LUNESTA 3 MG ORAL TABLET Take one tablet By Mouth at bedtime - Bogdan Hand ZYPREXA 10 MG ORAL TABLET Take one tablet By Mouth daily 201 01/03/23 - Bogdan Hand PRAZOSIN HCL 5 MG ORAL CAPSULE Take 3 capsules By Mouth at bedti mi Bogdan Hand LUNESTA 3 MG ORAL TABLET Take one tablet at bedtime - Bogdan Peace VALIUM 10 MG ORAL TABLET Take one tablet By Mouth at bedtime for breakthrough anxiety Bogdan Peace LEXAPRO 20 MG ORAL TABLET Take one tablet By Mouth daily wit h the 10mg tablet Bogdan Peace SOCIAL HISTORY Date Observation Value Provider time of call 06/16/2019 4:26 PM Suyapa merida social history E&M after 14 y ears of marriage, left home in Fall 2016 City: [place]. State: [place]. 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 State: [place]. 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 State: [place]. 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 State: [place]. 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 State: [place]. 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 State: [place]. 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 State: [place]. 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 State: [place]. 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 State: [place]. 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 State: [place]. 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 State: [place]. 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 State: [place]. 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 State: [place]. 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 State: [place]. 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 State: [place]. 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 State: [place]. 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 State: [place]. 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 State: [place]. 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 Hand " social history reviewed E&M reviewed today Alverto mars Hand " Exercise Program Referral T Bogdan Lewiskins " Weight Management Counseling Provided T Bogdan Lewiskins " Nutrition intervention T Bogdan Padgett " Exercise Program Referral T Bogdan Peace " Weight Management Counseling Provided T Bogdan Peace " Nutrition intervention T Bogdan Nguyen rknicole " drug use, illicit Previously Bogdan Peace " alcohol use Currently Bogdan Peace " smoking status never smoker Bogdan Peace " social history reviewed E&M reviewed today [place] " social history E&M after 14 y ears of marriage, left home in Fall 2016 City: [place]. State: [place]. 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 Hand " family support after 14 y ears of marriage, left home in Fall 2016 Bogdan Hand " home/family situation, assessment Lives with 4 children (ages 13, 12, 9 and 7 as of 08/2017) Bogdan Hand FUNCTIONAL STATUS No Information Available MENTAL STATUS Date Observation Value Provider mental status assessment, judgment fair Bogdan Hand " insight (mental status exam) fair Domingo Hand " Mental Status Exam: intelligence adequat e fund of information, intact memory processes, oriented to person, oriented to place, oriented to time, oriented to situation, oriented to reality Bogdan Hand " hallucinations none Bogdan Hand " thought content (mental status exam) (E&M) lucid Bogdan Hand " mental status assessment, process able to abstra ct, goal-directed, logical Bogdan Hand " mental status assessment, sensorium alert, atten tive, clear Bogdan Hand " affect (mental status exam) congruent, normal in tensity, constricted Bogdan Hand " mood (mental status exam) pleasant, "down" Domingokristyn demar Peace " mental status assessment, speech activit y normal flow, normal pace, normal pressure, normal rate, normal tone, normal volume, spontaneous Bogdan Lewiskins " mental status assessment, motor activity normal gait, normal posture, - Bogdan Lewiskins " behavior (mental status exam) appropriat e, candid, cooperative, good eye contact, polite, responsive, - Bogdan Peace " mental appearance (mental status exam) a dequate hygiene, appropriate dress, looks like stated age, neat, very casual dress, several tattoos Bogdan Peace mental status assessment, judgment fair Bogdan Hand " insight (mental status exam) fair Dam ien Peace " Mental Status Exam: intelligence adequat e fund of information, intact memory processes, oriented to person, oriented to place, oriented to time, oriented to situation, oriented to reality Bogdan Lewiskins " hallucinations none Bogdanlizzette Lewiskins " thought content (mental status exam) (E&M) lucid Bogdan Hand " mental status assessment, process able to abstra ct, goal-directed, logical Bogdan Peace " mental status assessment, sensorium alert, atten tive, clear Bogdan Lewiskins " affect (mental status exam) congruent, normal in tensity, normal range Bogdan Peace " mood (mental status exam) frustrated, pleasant D alexander Peace " mental status assessment, speech activit y normal flow, normal pace, normal pressure, normal rate, normal tone, normal volume, spontaneous Bogdan Lewiskins " mental status assessment, motor activity normal gait, normal posture Bogdan Peace " behavior (mental status exam) appropriat e, candid, cooperative, good eye contact, polite, responsive Bogdan Peace " mental appearance (mental status exam) a dequate hygiene, appropriate dress, looks like stated age, neat Bogdan Peace mental status assessment, judgment fair Bogdan Hand " insight (mental status exam) fair Dam ien Peace " Mental Status Exam: intelligence adequat e fund of information, intact memory processes, oriented to person, oriented to place, oriented to time, oriented to situation, oriented to reality Bogdan Lewiskins " hallucinations none Bogdan Lewiskins " thought content (mental status exam) (E&M) lucid Bogdan Hand " mental status assessment, process able to abstra ct, goal-directed, logical Bogdan Peace " mental status assessment, sensorium alert, atten tive, clear Bogdan Peace " affect (mental status exam) congruent, normal in tensity, anxious Bogdan Peace " mood (mental status exam) depressed, frustrated Bogdan Peace " mental status assessment, speech activit y normal flow, normal pace, normal pressure, normal rate, normal tone, normal volume, spontaneous Bogdan Peace " mental status assessment, motor activity normal gait, normal posture Bogdan Peace " behavior (mental status exam) appropriat e, candid, cooperative, good eye contact, polite, responsive Bogdan Peace " mental appearance (mental status exam) a dequate hygiene, appropriate dress, looks like stated age, neat Bogdan Hand mental status assessment, judgment fair Bogdanlizzette Lewiskins " insight (mental status exam) fair Domingo kristynn Peace " Mental Status Exam: intelligence adequat e fund of information, intact memory processes, oriented to person, oriented to place, oriented to time, oriented to situation, oriented to reality Bogdan Peace " hallucinations none Bogdan Peace " thought content (mental status exam) (E&M) lucid Bogdan Lewiskins " mental status assessment, process able to abstra ct, goal-directed, logical Bogdan Peace " mental status assessment, sensorium alert, atten tive, clear Bogdan Peace " affect (mental status exam) congruent, anxious D danilomars LewisPeace " mood (mental status exam) depressed, frustrated, worried Bogdan Peace " mental status assessment, speech activit y normal flow, normal pace, normal pressure, normal rate, normal tone, normal volume, spontaneous Bogdan Peace " mental status assessment, motor activity normal gait, normal posture Bogdan Peace " behavior (mental status exam) appropriat e, candid, cooperative, good eye contact, polite, responsive, tearful Bogdan Peace " mental appearance (mental status exam) a dequate hygiene, appropriate dress, looks like stated age, neat Bogdan Hand mood (mental status exam) anxious, frustrated, w orried Olga Fernandes " mental status assessment, judgment fair Olga Fernandes " insight (mental status exam) fair Lis maycol Fernandes " Mental Status Exam: intelligence adequat e fund of information, intact memory processes, oriented to person, oriented to place, oriented to time, oriented to situation, oriented to reality Olga Fernandes " hallucinations none Olga Fernandes " thought content (mental status exam) (E&M) lucid Olga Fernandes " mental status assessment, process able to abstra ct, goal-directed, logical Olga Fernandes " mental status assessment, sensorium alert, atten tive, clear Olga Fernandes " affect (mental status exam) congruent, anxious L alfonzo Fernandes " mental status assessment, speech activit y normal flow, normal pace, normal pressure, normal rate, normal tone, normal volume, spontaneous Olga Fernandes " mental status assessment, motor activity normal gait, normal posture Olga Fernandes " behavior (mental status exam) appropriat e, candid, cooperative, good eye contact, polite, responsive Olga Fernandes " mental appearance (mental status exam) a dequate hygiene, appropriate dress, looks like stated age, elijah Olga Fernandes mental status assessment, judgment fair oBgdan Lewiskins " insight (mental status exam) fair Dam ien Peace " Mental Status Exam: intelligence adequat e fund of information, intact memory processes, oriented to person, oriented to place, oriented to time, oriented to situation, oriented to reality Bogdan Peace " hallucinations none Bogdan Peace " thought content (mental status exam) (E&M) lucid Bogdanlizzette Lewiskins " mental status assessment, process able to abstra ct, goal-directed, logical Bogdan Peace " mental status assessment, sensorium alert, atten tive, clear Bogdan Epace " affect (mental status exam) congruent, normal in tensity, normal range Bogdan Peace " mood (mental status exam) pleasant Bogdan Peace " mental status assessment, speech activit y normal flow, normal pace, normal pressure, normal rate, normal tone, normal volume, spontaneous Bogdan Peace " mental status assessment, motor activity normal gait, normal posture Bogdna Peace " behavior (mental status exam) appropriat e, candid, cooperative, good eye contact, polite, responsive Bogdan Peace " mental appearance (mental status exam) a dequate hygiene, appropriate dress, looks like stated age elijah Bogdan Hand mental status assessment, judgment good Bogdan Peace " insight (mental status exam) good Dam ien Peace " Mental Status Exam: intelligence adequat e fund of information, intact memory processes, oriented to person, oriented to place, oriented to time, oriented to situation, oriented to reality Bogdan Peace " hallucinations none Bogdan Peace " thought content (mental status exam) (E&M) lucid Bogdan Lewiskins " mental status assessment, process able to abstra ct, goal-directed, logical Bogdan Peace " mental status assessment, sensorium alert, atten tive, clear Bogdan Peace " affect (mental status exam) congruent, normal in tensity, normal range Bogdan Peace " mood (mental status exam) pleasant Bogdan Peace " mental status assessment, speech activit y normal flow, normal pace, normal pressure, normal rate, normal tone, normal volume, spontaneous Bogdan Peace " mental status assessment, motor activity normal gait, normal posture Bogdan Peace " behavior (mental status exam) appropriat e, candid, cooperative, good eye contact, polite, responsive Bogdan Peace " mental appearance (mental status exam) a dequate hygiene, appropriate dress, looks like stated age, neat Bogdan Hand mental status assessment, judgment good Bogdan Lewiskins " insight (mental status exam) good Dam ien Peace " Mental Status Exam: intelligence adequat e fund of information, intact memory processes, oriented to person, oriented to place, oriented to time, oriented to situation, oriented to reality Bogdan Peace " hallucinations none Bogdan Peace " thought content (mental status exam) (E&M) lucid Bogdan Lewiskins " mental status assessment, process able to abstra ct, goal-directed, logical Bogdan Peace " mental status assessment, sensorium alert, atten tive, clear Bogdan Peace " affect (mental status exam) congruent, normal in tensity, normal range Bogdan Peace " mood (mental status exam) pleasant Bogdan Peace " mental status assessment, speech activit y normal flow, normal pace, normal pressure, normal rate, normal tone, normal volume, spontaneous Bogdan Peace " mental status assessment, motor activity normal gait, normal posture Bogdan Peace " behavior (mental status exam) appropriat e, candid, cooperative, good eye contact, polite, responsive Bogdan Peace " mental appearance (mental status exam) a dequate hygiene, appropriate dress, looks like stated delfino, elijah Hand mental status assessment, judgment good Bogdan Lewiskins " insight (mental status exam) good Dam ien Peace " Mental Status Exam: intelligence adequat e fund of information, intact memory processes, oriented to person, oriented to place, oriented to time, oriented to situation, oriented to reality Bogdan Peace " hallucinations none Bogdan Peace " thought content (mental status exam) (E&M) lucid Bogdan Lewiskins " mental status assessment, process able to abstra ct, goal-directed, logical Bogdan Peace " mental status assessment, sensorium alert, atten tive, clear Bogdan Peace " affect (mental status exam) euthymic, normal int ensity, normal range Bogdan Peace " mood (mental status exam) pleasant Bogdan Peace " mental status assessment, speech activit y normal flow, normal pace, normal pressure, normal rate, normal tone, normal volume, spontaneous Bogdan Peace " mental status assessment, motor activity normal gait, normal posture Bogdan Peace " behavior (mental status exam) appropriat e, candid, cooperative, good eye contact, polite, responsive Bogdan Lewiskins " mental appearance (mental status exam) a dequate hygiene, appropriate dress, looks like stated age, elijah Hand mental status assessment, judgment good Bogdan Lewiskins " insight (mental status exam) good Domingo simonsn Peace " Mental Status Exam: intelligence adequat e fund of information, intact memory processes, oriented to person, oriented to place, oriented to time, oriented to situation, oriented to reality Bogdan Peace " hallucinations none Bogdan Peace " thought content (mental status exam) (E&M) lucid Bogdan Lewiskins " mental status assessment, process able to abstra ct, goal-directed, logical Bogdan Peace " mental status assessment, sensorium alert, atten tive, clear Bogdan Peace " affect (mental status exam) euthymic, normal int ensity, normal range Bogdan Peace " mood (mental status exam) anxious, depressed, fr ustrated, pleasant, sad Bogdan Peace " mental status assessment, speech activit y normal flow, normal pace, normal pressure, normal rate, normal tone, normal volume, spontaneous Bogdan Peace " mental status assessment, motor activity normal gait, normal posture Bogdan Hand " behavior (mental status exam) appropriat e, candid, cooperative, good eye contact, polite, responsive Bogdan Lewiskins " mental appearance (mental status exam) a dequate hygiene, appropriate dress, looks like stated elijah saleh mental status assessment, judgment good Bogdan Lewiskins " insight (mental status exam) good Dam kristynn Peace " Mental Status Exam: intelligence adequat e fund of information, intact memory processes, oriented to person, oriented to place, oriented to time, oriented to situation, oriented to reality Bogdanlizzette Lewiskins " hallucinations none Bogdan Lewiskins " thought content (mental status exam) (E&M) lucid Bogdan Lewiskins " mental status assessment, process able to abstra ct, goal-directed, logical Bogdan Lewiskins " mental status assessment, sensorium alert, atten tive, clear Bogdan Lewiskins " affect (mental status exam) euthymic, normal int ensity, normal range Bogdan Lewiskins " mood (mental status exam) anxious, depressed, fr ustrated, pleasant, sad Bogdan Lewiskins " mental status assessment, speech activit y normal flow, normal pace, normal pressure, normal rate, normal tone, normal volume, spontaneous Bogdan Lewiskins " mental status assessment, motor activity normal gait, normal posture Bogdan Hand " behavior (mental status exam) appropriat e, candid, cooperative, good eye contact, polite, responsive Bogdan Lewiskins " mental appearance (mental status exam) a dequate hygiene, appropriate dress, looks like stated age, elijah Hand mental status assessment, judgment good Olga Fernandes " insight (mental status exam) good Lis a Fernandes " Mental Status Exam: intelligence adequat e fund of information, intact memory processes, oriented to person, oriented to place, oriented to time, oriented to situation, oriented to reality Olga Fernandes " hallucinations none Olga Fernandes " thought content (mental status exam) (E&M) lucid Olga Fernandes " mental status assessment, process able to abstra ct, goal-directed, logical Olga Fernandes " mental status assessment, sensorium alert, atten tive, clear Olga Fernandes " affect (mental status exam) congruent, e uthymic, normal intensity, normal range, anxious Olga Fernandes " mood (mental status exam) anxious, depressed, fr ustrated, pleasant, sad Olga Fernandes " mental status assessment, speech activit y normal flow, normal pace, normal pressure, normal rate, normal tone, normal volume, spontaneous Olga Fernandes " mental status assessment, motor activity normal gait, normal posture Olga Fernandes " behavior (mental status exam) appropriat e, candid, cooperative, good eye contact, polite, responsive Olga Fernandes " mental appearance (mental status exam) a dequate hygiene, appropriate dress, looks like stated age, neat Olga Fernandes mood (mental status exam) pleasant Bogdan Peace " mental status assessment, judgment good Bogdan Peace " insight (mental status exam) good Dam ien Peace " Mental Status Exam: intelligence adequat e fund of information, intact memory processes, oriented to person, oriented to place, oriented to time, oriented to situation, oriented to reality Bogdan Peace " hallucinations none Bogdan Peace " thought content (mental status exam) (E&M) lucid Bogdan Lewiskins " mental status assessment, process able to abstra ct, goal-directed, logical Bogdan Peace " mental status assessment, sensorium alert, atten tive, clear Bogdan Peace " affect (mental status exam) congruent, e uthymic, normal intensity, normal range Bogdan Peace " mental status assessment, speech activit y normal flow, normal pace, normal pressure, normal rate, normal tone, normal volume, spontaneous Bogdan Peace " mental status assessment, motor activity normal gait, normal posture Bogdan Peace " behavior (mental status exam) appropriat e, candid, cooperative, good eye contact, polite, responsive Bogdan Peace " mental appearance (mental status exam) a dequate hygiene, appropriate dress, looks like stated age, elijah Bogdan Peace mood (mental status exam) anxious, depressed, fr ustrated Olga Fernandes " mental status assessment, judgment good Olga Fernandes " insight (mental status exam) good Lis a Fernandes " Mental Status Exam: intelligence adequat e fund of information, intact memory processes, oriented to person, oriented to place, oriented to time, oriented to situation, oriented to reality Olga Fernandes " hallucinations none Olga Fernandes " thought content (mental status exam) (E&M) lucid Olga Fernandes " mental status assessment, process able to abstra ct, goal-directed, logical Olga Fernandes " mental status assessment, sensorium alert, atten tive, clear Olga Fernandes " affect (mental status exam) congruent, normal in tensity, normal range Olga Fernandes " mental status assessment, speech activit y normal flow, normal pace, normal pressure, normal rate, normal tone, normal volume, spontaneous Olga Fernandes " mental status assessment, motor activity normal gait, normal posture Olga Fernandes " behavior (mental status exam) appropriat e, candid, cooperative, good eye contact, polite, responsive Olga Fernandes " mental appearance (mental status exam) a dequate hygiene, appropriate dress, looks like stated age, neat Olga Fernandes " anxiety worry a lot, sleep d isturbance, restlessness, irritability, many physical complaints, panic attacks, muscle tension Olga Fernandes mental status assessment, judgment good Bogdan Hand " insight (mental status exam) good Domingo Hand " Mental Status Exam: intelligence adequat e fund of information, intact memory processes, oriented to person, oriented to place, oriented to time, oriented to situation, oriented to reality Bogdan Hand " hallucinations none Bogdan Peace " thought content (mental status exam) (E&M) lucid Bogdan Hand " mental status assessment, process able to abstra ct, goal-directed, logical Bogdan Peace " mental status assessment, sensorium alert, atten tive, clear Bogdan Peace " affect (mental status exam) congruent, normal in tensity, normal range Bogdan Peace " mental status assessment, speech activit y normal flow, normal pace, normal pressure, normal rate, normal tone, normal volume, spontaneous Bogdan Peace " mental status assessment, motor activity normal gait, normal posture Bogdan Peace " behavior (mental status exam) appropriat e, candid, cooperative, good eye contact, polite, responsive Bogdan Hnad " mental appearance (mental status exam) a dequate hygiene, appropriate dress, looks like stated age, neat Bogdan Hand mental status assessment, judgment good Bogdan Peace " insight (mental status exam) good Dam ien Peace " Mental Status Exam: intelligence adequat e fund of information, intact memory processes, oriented to person, oriented to place, oriented to time, oriented to situation, oriented to reality Bogdan Peace " hallucinations none Bogdan Peace " thought content (mental status exam) (E&M) lucid Bogdan Peace " mental status assessment, process able to abstra ct, goal-directed, logical Bogdan Peace " mental status assessment, sensorium alert, atten tive, clear Bogdan Peace " affect (mental status exam) congruent, normal in tensity, normal range Bogdan Peace " mental status assessment, speech activit y normal flow, normal pace, normal pressure, normal rate, normal tone, normal volume, spontaneous Bogdan Peace " mental status assessment, motor activity normal gait, normal posture Bogdan Peace " behavior (mental status exam) appropriat e, candid, cooperative, good eye contact, polite, responsive Bogdan Peace " mental appearance (mental status exam) a dequate hygiene, appropriate dress, looks like stated age, elijah Hand mental status assessment, judgment good Bogdan Peace " insight (mental status exam) good Dam ien Peace " Mental Status Exam: intelligence adequat e fund of information, intact memory processes, oriented to person, oriented to place, oriented to time, oriented to situation, oriented to reality Bogdan Peace " hallucinations auditory Bogdan Peace " thought content (mental status exam) (E&M) lucid Bogdan Peace " mental status assessment, process able to abstra ct, goal-directed, logical Bogdan Peace " mental status assessment, sensorium alert, atten tive, clear Bogdan Peace " affect (mental status exam) congruent, normal in tensity, normal range Bogdan Peace " mental status assessment, speech activit y normal flow, normal pace, normal pressure, normal rate, normal tone, normal volume, spontaneous Bogdan Peace " mental status assessment, motor activity normal gait, normal posture Bogdan Peace " behavior (mental status exam) appropriat e, candid, cooperative, good eye contact, polite, responsive Bogdan Peace " mental appearance (mental status exam) a dequate hygiene, appropriate dress, looks like stated age, elijah Mcfadden Peace mental status assessment, judgment good Bogdan Peace " insight (mental status exam) good Dam ien Peace " Mental Status Exam: intelligence adequat e fund of information, intact memory processes, oriented to person, oriented to place, oriented to time, oriented to situation, oriented to reality Bogdan Peace " hallucinations none Bogdan Peace " thought content (mental status exam) (E&M) lucid Bogdan Peace " mental status assessment, process able to abstra ct, goal-directed, logical Bogdan Peace " mental status assessment, sensorium alert, atten tive, clear Bogdan Peace " affect (mental status exam) congruent, normal in tensity, normal range Bogdan Peace " mental status assessment, speech activit y normal flow, normal pace, normal pressure, normal rate, normal tone, normal volume, spontaneous Bogdan Peace " mental status assessment, motor activity normal gait, normal posture Bogdan Peace " behavior (mental status exam) appropriat e, candid, cooperative, good eye contact, polite, responsive, tearful Bogdan Peace " mental appearance (mental status exam) a dequate hygiene, appropriate dress, looks like stated age, neat Bogdan Lewiskins mental status assessment, judgment good Bogdan Peace " insight (mental status exam) good Dam ien Peace " Mental Status Exam: intelligence adequat e fund of information, intact memory processes, oriented to person, oriented to place, oriented to time, oriented to situation, oriented to reality Bogdan Peace " hallucinations none Bogdan Peace " thought content (mental status exam) (E&M) lucid Bogdan Peace " mental status assessment, process able to abstra ct, goal-directed, logical Bogdan Peace " mental status assessment, sensorium alert, atten tive, clear Bogdan Peace " affect (mental status exam) congruent, normal in tensity, normal range Bogdan Peace " mental status assessment, speech activit y normal flow, normal pace, normal pressure, normal rate, normal tone, normal volume, spontaneous Bogdan Peace " mental status assessment, motor activity normal gait, normal posture Bogdan Peace " behavior (mental status exam) appropriat e, candid, cooperative, good eye contact, polite, responsive, tearful Bogdan Peace " mental appearance (mental status exam) a dequate hygiene, appropriate dress, looks like stated age, neat Bogdan Peace mental status assessment, judgment good Bogdan Peace " insight (mental status exam) good Dam ien Peace " Mental Status Exam: intelligence adequat e fund of information, intact memory processes, oriented to person, oriented to place, oriented to time, oriented to situation, oriented to reality Bogdan Peace " hallucinations none Bogdan Peace " thought content (mental status exam) (E&M) lucid Bogdan Peace " mental status assessment, process able to abstra ct, goal-directed, logical Bogdan Peace " mental status assessment, sensorium alert, atten tive, clear Bogdan Peace " affect (mental status exam) normal intensity, no rmal range Bogdan Peace " mental status assessment, speech activit y normal flow, normal pace, normal pressure, normal rate, normal tone, normal volume, spontaneous Bogdan Peace " mental status assessment, motor activity normal gait, normal posture, fidgety Bogdan Peace " behavior (mental status exam) appropriat e, candid, cooperative, good eye contact, polite, responsive, tearful Bogdan Peace " mental appearance (mental status exam) a dequate hygiene, appropriate dress, looks like stated age, elijah Hand mental status assessment, judgment good Bogdan Peace " insight (mental status exam) good Dam ien Peace " Mental Status Exam: intelligence adequat e fund of information, intact memory processes, oriented to person, oriented to place, oriented to time, oriented to situation, oriented to reality Bogdan Peace " hallucinations none Bogdan Peace " thought content (mental status exam) (E&M) lucid Bogdan Peace " mental status assessment, process able to abstra ct, goal-directed, logical Bogdan Peace " mental status assessment, sensorium alert, atten tive, clear Bogdan Peace " affect (mental status exam) normal intensity, no rmal range Bogdan Peace " mental status assessment, speech activit y normal flow, normal pace, normal pressure, normal rate, normal tone, normal volume, spontaneous Bogdan Peace " mental status assessment, motor activity normal gait, normal posture, fidgety Bogdan Peace " behavior (mental status exam) appropriat e, candid, cooperative, good eye contact, polite, responsive, tearful Bogdan Peace " mental appearance (mental status exam) a dequate hygiene, appropriate dress, looks like stated age, neat Bogdan Peace " anxiety worry a lot, sleep disturbance, irritability, panic attacks Bogdan Peace MEDICAL EQUIPMENT No Information Available FAMILY HISTORY No Information Available INSURANCE PROVIDERS Payer name Policy type / Coverage type Covered part y ID [employer] [id number] ADVANCE DIRECTIVES No Information Available TREATMENT PLAN Date Name Lipid Panel Comp. Metabolic Panel (14) CBC With Differential/Platel et Est Patient Detailed - 30996 Est Patient Detailed - 69920 Est Patient Exp Problem - 99 213 Est Patient Exp Problem - 99 213 Psychotherapy 45 (38-52*) mi n - [id number] (with patient and/or family member) Est Patient Detailed - 90002 Est Patient Detailed - 70354 Est Patient Exp Problem - 99 213 Est Patient Detailed - 29666 Est Patient Detailed - 61400 Est Patient Exp Problem - 99 213 Psychotherapy 45 (38-52*) mi n - [id number] (with patient and/or family member) Est Patient Exp Problem - 99 213 Diagnostic evaluation (no me dical) - 30205 Est Patient Detailed - 90744 Est Patient Detailed - 11277 Est Patient Detailed - 63873 Est Patient Detailed - 35445 Est Patient Detailed - 91501 Est Patient Detailed - 46333 Diagnostic evaluation with abby najera - 87379 HISTORY OF PROCEDURES Procedure Date Procedure Name Provider Procedure Notes Status Psychotherapy 45 (38-52*) mi n - [id number] (with patient and/or family member) Olga Fernandes completed Psychotherapy 45 (38-52*) mi n - [id number] (with patient and/or family member) Olga Fernandes completed Diagnostic evaluation (no medical) - 41764 Olga Fernandes completed Diagnostic evaluation with medical - 66088 Bogdan rivera completed GOALS No Information Available HEALTH CONCERNS No Information Available
--- OUTSIDE RECORDS SUMMARY | 2019-10-30 14:02 | XMS REPORT ---
Author Author [facility] t Organization [facility] t Address [address] [place] [address] Phone Unavailable Care Team Providers Care Electric Meter Reader Name Role Phone NONSTAFF PCP Unavailable JUAN, P COLLETTE Attphys Unavailable NATALIA AVILA Attphys Unavailable GLENN TILLEY Attphys Unavailable NAHUM, A LAINIRALI Attphys Unavailable [place] ÁLVAREZ Attphys Unavailable TANVI, S SEEMA Attphys Unavailable [place] GILBERT Attphys Unavailable MANNichelle GARZA Attphys Unavailable LONI CRAWFORD Attphys Unavailable MADELINE MCKEON Attphys Unavailable Khang BARROW Attphys Unavailable GLENN TILLEY Admphys Unavailable Payers Payer Name Policy Type Policy Number Effective Date Expiration Date Yaron kelley [facility] [id number] 2016 00:00 :00 [facility] [employer] [id number] 2016 00:00:00 [facility] [employer] [id number] 2016 00:00:00 [facility] Problems Condition Name Condition Details Condition Category Status Onset Date Resolution Date Last Treatment Date Treating Clinician Comments Source Acute pancreatitis Pancreatitis, acute Problem Active [facility] Abdominal pain Abdominal pain Problem Active [facility] Calculus of kidney Kidney stones Problem Active [facility] Allergies, Adverse Reactions, Alerts Allergy Name Allergy Type Status Severity Reaction(s) Onset Date Inacti ve Date Treating Clinician Comments Source codeine DA Active ME 2019-10-08 00:00:00 [facility] sulfamethoxazole DA Active SV 2019-10-08 00:00:00 [facility] trimethoprim DA Active SV 2019-10-08 00:00:00 [facility] tramadol DA Active ME 2019-10-08 00:00:00 [facility] ceftriaxone DA Active SV 2019-10-08 00:00:00 [facility] codeine DA Active ME 2019-10-05 00:00:00 [facility] sulfamethoxazole DA Active SV 2019-10-05 00:00:00 [facility] trimethoprim DA Active SV 2019-10-05 00:00:00 [facility] tramadol DA Active ME 2019-10-05 00:00:00 [facility] ceftriaxone DA Active SV 2019-10-05 00:00:00 [facility] codeine DA Active ME 2019-07-24 00:00:00 [facility] sulfamethoxazole DA Active ME 2019-07-24 00:00:00 [facility] trimethoprim DA Active ME 2019-07-24 00:00:00 [facility] tramadol DA Active ME 2019-07-24 00:00:00 [facility] ceftriaxone DA Active U 2019-07-24 00:00:00 [facility] codeine DA Active ME 2019-07-22 00:00:00 [facility] sulfamethoxazole DA Active SV 2019-07-22 00:00:00 [facility] trimethoprim DA Active SV 2019-07-22 00:00:00 [facility] tramadol DA Active ME 2019-07-22 00:00:00 [facility] ceftriaxone DA Active SV 2019-07-22 00:00:00 [facility] codeine DA Active ME 2019-05-13 00:00:00 [facility] sulfamethoxazole DA Active SV 2019-05-13 00:00:00 [facility] trimethoprim DA Active SV 2019-05-13 00:00:00 [facility] tramadol DA Active ME 2019-05-13 00:00:00 [facility] ceftriaxone DA Active SV 2019-05-13 00:00:00 [facility] Codeine Allergy to Substance Active Mild 2019-04-28 00:00:00 [facility] Tramadol Allergy to Substance Active 2019-04-28 00:00:00 [facility] sulfamethoxazole DA Active MO 2019-04-02 00:00:00 [facility] trimethoprim DA Active MO 2019-04-02 00:00:00 [facility] sulfamethoxazole DA Active SV 2019-03-11 00:00:00 [facility] trimethoprim DA Active SV 2019-03-11 00:00:00 [facility] ceftriaxone DA Active SV 2019-03-11 00:00:00 [facility] codeine DA Active SV 2019-02-23 00:00:00 [facility] tramadol DA Active SV 2019-02-23 00:00:00 [facility] codeine DA Active SV 2019-02-06 00:00:00 [facility] tramadol DA Active MO 2019-02-06 00:00:00 [facility] ceftriaxone DA Active SV 2019-02-06 00:00:00 [facility] ceftriaxone DA Active SV 2019-02-05 00:00:00 [facility] codeine DA Active ME 2019-01-25 00:00:00 [facility] tramadol DA Active ME 2019-01-25 00:00:00 [facility] codeine DA Active ME 2019-01-10 00:00:00 [facility] tramadol DA Active ME 2019-01-10 00:00:00 [facility] codeine DA Active SV 2018-12-26 00:00:00 [facility] tramadol DA Active SV 2018-12-26 00:00:00 [facility] codeine DA Active SV 2018-12-25 00:00:00 [facility] tramadol DA Active SV 2018-12-25 00:00:00 [facility] codeine DA Active ME 2018-12-08 00:00:00 [facility] tramadol DA Active ME 2018-12-08 00:00:00 [facility] codeine DA Active ME 2018-11-07 00:00:00 [facility] tramadol DA Active ME 2018-11-07 00:00:00 [facility] codeine DA Active ME 2018-10-19 00:00:00 [facility] tramadol DA Active ME 2018-10-19 00:00:00 [facility] codeine DA Active ME 2018-08-28 00:00:00 [facility] tramadol DA Active ME 2018-08-28 00:00:00 [facility] codeine DA Active ME 2018-08-18 00:00:00 [facility] tramadol DA Active ME 2018-08-18 00:00:00 [facility] codeine DA Active ME 2018-08-07 00:00:00 [facility] tramadol DA Active ME 2018-08-07 00:00:00 [facility] codeine DA Active ME 2018-07-29 00:00:00 [facility] tramadol DA Active ME 2018-07-29 00:00:00 [facility] codeine DA Active ME 2018-07-22 00:00:00 [facility] tramadol DA Active ME 2018-07-22 00:00:00 [facility] codeine DA Active ME 2018-07-03 00:00:00 [facility] tramadol DA Active ME 2018-07-03 00:00:00 [facility] codeine DA Active ME 2018-07-01 00:00:00 [facility] tramadol DA Active ME 2018-07-01 00:00:00 [facility] codeine DA Active SV 2018-05-15 00:00:00 [facility] tramadol DA Active MO 2018-05-15 00:00:00 [facility] Codeine Propensity to adverse reactions to drug Active Other (See Comments) 2018-03-05 00:00:00 [facility] Tray odchristian Tramadol Propensity to adverse reactions to drug Active Other (See Comments) 2018-03-05 00:00:00 [facility] Meth odist codeine DA Active ME 2018-02-05 00:00:00 [facility] tramadol DA Active ME 2018-02-05 00:00:00 [facility] codeine DA Active ME 2018-02-02 00:00:00 [facility] tramadol DA Active ME 2018-02-02 00:00:00 [facility] codeine DA Active ME 2018-01-28 00:00:00 [facility] tramadol DA Active ME 2018-01-28 00:00:00 [facility] Social History Social Habit Start Date Stop Date Quantity Comments Source History of tobacco use Current smoker Jai Zee Sex Assigned At [facility] Alcohol intake 2018-03-05 00:00:00 2018-03-05 00:00:00 Current drinker of alcohol (finding) Jai Zee Alcohol Comment 2018-03-05 00:00:00 2018-03-05 00:00:00 "two or three beers in a month; it's rare" Jai Zee Smoking Status Start Date Stop Date Source Former smoker 2018-03-05 00:00:00 2018-03-05 00:00:00 Jai Zee Medications Ordered Medication Name Filled Medication Name Start Date Stop Da te Current Medication? Ordering Clinician Indication Dosage Frequency Signature (SIG) Comments Components Source keTOROlac (TORadol) 10 mg tablet 2018-03-05 11:41:40 Yes 10mg Q6H Take 10 mg by mouth every 6 (six) hours as needed for moderate pain. Jai Zee Levofloxacin (Levaquin) 500 Mg Tablet, 500 Mg Oral Lev ofloxacin (Levaquin) 500 Mg Tablet, 500 Mg Oral 2018-03-04 00:00:00 2018-06-03 00:00:00 No A mbica Sandhir Do 500 Daily for 10 [facility] Cephalexin Monohydrate (Keflex) 500 Mg Capsule, 500 Mg Oral Cephalexin Monohydrate (Keflex) 500 Mg Capsule, 500 Mg Oral 2018-01-21 00:00:00 06-03 00:00:00 No Ambica Sandhir Do 500 Every 6 Hours [facility] Prednisone 20 Mg Tab, 40 Mg Oral Prednisone 20 Mg Tab, 40 Mg Oral 2018-01-21 00:00:00 2018-06-03 00:00:00 No Ambica Sandhir Do 40 Daily [facility] Acetaminophen With Codeine (Tylenol With Codeine #3 Tablet) 1 Each Tablet, 300 Mg Oral Acetaminophen With Codeine (Tylenol With Codeine #3 Tablet) 1 Each Tablet, 300 Mg Oral 2017-08-24 00:00:00 2017-12-04 00:00:00 No Glenn albarado Md 300 Every 8 Hours as needed for Pain [facility] Cyclobenzaprine Hcl 10 Mg Tablet, 5 Mg Oral Cyclobenza rita Hcl 10 Mg Tablet, 5 Mg Oral 2017-08-24 00:00:00 2017-12-04 00:00:00 No Glenn Tilley Md 5 Three Times A Day [facility] Ondansetron (Zofran Odt) 4 Mg Tab.rapdis, 4 Mg Oral On dansetron (Zofran Odt) 4 Mg Tab.rapdis, 4 Mg Oral 2017-08-24 00:00:00 2017-12-04 00:00:00 No Glenn Tilley Md 4 Q4-6H Prn [facility] Polyethylene Glycol 3350 (Miralax) 17 Gm Powd.pack, 17 Gm Oral Polyethylene Glycol 3350 (Miralax) 17 Gm Powd.pack, 17 Gm Oral 2017-08-24 00:00:00 2017 00:00:00 No Glenn Tilley Md 17 Twice A Day [facility] Senna Fruit/Conc/Doc Sod/Bisa 1 Ea Tab, 2 Ea Oral Yvtete a Fruit/Conc/Doc Sod/Bisa 1 Ea Tab, 2 Ea Oral 2017-08-24 00:00:00 2017-12-04 00:00:00 No Glenn albarado Md 2 Bedtime [facility] Amitriptyline Hcl 150 Mg Tablet Amitriptyline Hcl 150 Mg Tablet Yes 150 Bedtime [facility] Clonazepam 2 Mg Tablet Clonazepam 2 Mg Tablet Yes 2 Bedtime [facility] Diazepam 10 Mg Tablet Diazepam 10 Mg Tablet Yes 10 Bedtime [facility] Procedures Procedure Date / Time Performed Performing Clinician [facility] e X-ray of chest, single view 2019-03-01 00:00:00 [facility] Computed tomography of abdomen and pelvis with contrast 2018 00:00:00 AVILA [facility] Computed tomography of abdomen and pelvis with contrast 2018 00:00:00 JOHN MALONEY [facility] CT of abdomen and pelvis without contrast 2018-10-01 00:00:00 EROS ZAZUETA [facility] EMERGENCY DEPT VISIT 2018-08-08 00:00:[address] [facility] [address] of abdomen and pelvis without contrast 2018-08-05 00:00:0 0 COLLETTE MARTINEZ [facility] Plan of Care Planned Activity Planned Date Details Comments Source Future Scheduled Test 2019-12-31 00:00:00 INFLUENZA VACCINE [code = INFLUENZA VACCINE] Jai Zee Future Scheduled Test 1998 00:00:00 Screening for lisset gnant neoplasm of cervix (procedure) [code = 797572644] Jai delarosa Encounters Start Date/Time End Date/Time Encounter Type Admission Type Att[facility] Care Department Encounter ID Source 2019-04-28 07:19:00 2019-04-28 08:41:00 Departed Emergency Room [facility] [id number] [facility] 2019-04-22 08:20:00 2019-04-22 12:42:00 Departed Emergency Room 1 COLLETTE MARTINEZ [facility] [id number] [facility] 2019-04-16 06:54:00 2019-04-16 06:54:00 Emergency E [facility] [id number] [facility] 2019-03-18 08:01:00 2019-03-18 09:40:00 Departed Emergency Room [facility] [id number] [facility] 2019-03-03 07:46:00 2019-03-03 07:46:00 Emergency E MHSE [facility]SE [id number] [facility] 2019-03-01 08:09:00 2019-03-01 09:54:00 Departed Emergency Room 1 NATALIA AVILA [facility] [id number] [facility] 2019-02-26 12:14:00 2019-02-26 16:30:00 Departed Emergency Room 1 NATALIA AVILA [facility] [id number] [facility] 2019-01-21 07:56:00 2019-01-21 07:56:00 Emergency E MHSE MHSE [id number] [facility]SE 2019-01-14 06:04:00 2019-01-14 06:04:00 Emergency E MHSE [facility]SE [id number] [facility] 2019-01-12 09:04:00 2019-01-12 09:04:00 Emergency E [facility]SE [facility] [id number] [facility] 2018-12-21 08:10:00 2018-12-21 08:10:00 Emergency E MHSE [facility]SE [id number] [facility] 2018-11-09 23:38:00 2018-11-12 10:55:00 Discharged Inpatient (obs) 1 JAREK GLENN [facility] [id number] [facility] 2018-10-27 07:48:00 2018-10-27 07:48:00 Emergency E MHSE MHSE [id number] [facility]SE 2018-10-14 07:46:00 2018-10-14 07:46:00 Emergency E MHSE [facility]SE [id number] [facility]SE 2018-10-01 07:52:00 2018-10-01 10:54:00 Departed Emergency Room 1 EROS SIDHU [id number] [facility] 2018-09-29 07:48:00 2018-09-29 07:48:00 Emergency E MHSE MHSE [id number] [facility]SE 2018-09-09 07:48:00 2018-09-09 07:48:00 Emergency E MHSE MHSE [id number] [facility]SE 2018-08-30 10:01:00 2018-08-30 10:01:00 Emergency E MHSE MHSE [id number] [facility]SE 2018-08-08 09:43:00 2018-08-08 13:52:00 Departed Emergency Room [facility] [id number] [facility] 2018-08-05 07:58:00 2018-08-05 11:18:00 Departed Emergency Room 1 COLLETTE MARTINEZ [facility] [id number] [facility] 2018-06-15 08:19:00 2018-06-15 11:31:00 Departed Emergency Room [facility] [id number] [facility] 2018-06-03 08:45:00 2018-06-03 12:30:00 Departed Emergency Room 1 EROS SIDHU [facility] [id number] [facility] 2018-04-28 08:51:00 2018-04-28 11:28:00 Departed Emergency Room [facility] [id number] [facility] 2018-04-09 08:18:00 2018-04-09 09:41:00 Departed Emergency Room [facility] [id number] [facility] 2018-03-31 08:02:00 2018-03-31 10:40:00 Departed Emergency Room [facility] [id number] [facility] 2018-03-28 08:28:00 2018-03-28 12:15:00 Departed Emergency Room 1 DANIAL ÁLVAREZ [facility] [id number] [facility] 2018-03-04 08:29:00 2018-03-04 12:33:00 Departed Emergency Room 1 SEEMA TINAJERO [facility] [id number] [facility] 2018-02-09 08:28:00 2018-02-09 11:21:00 Departed Emergency Room [facility] [id number] [facility] 2018-01-21 07:51:00 2018-01-21 11:00:00 Departed Emergency Room 1 SEEMA TINAJERO [facility] [id number] [facility] 2017-12-04 07:45:00 2017-12-04 13:10:00 Departed Emergency Room 1 MADELINE GILBERT [facility] [id number] [facility] 2017-11-17 07:45:00 2017-11-17 11:15:00 Departed Emergency Room 1 CANDE LOUIS [facility] [id number] [facility] 2017-10-26 09:23:00 2017-10-26 12:30:00 Departed Emergency Room 1 MADELINE GILBERT [facility] [id number] [facility] 2017-09-09 08:01:00 2017-09-09 10:26:00 Departed Emergency Room ER JUAN COLLETTE [facility] [id number] [facility] 2017-08-20 09:54:00 2017-08-24 09:52:00 Discharged Inpatient ER GLENN TILLEY [facility] [id number] [facility] 2017-08-05 08:13:00 2017-08-05 12:28:00 Departed Emergency Room ER MADELINE GILBERT [facility] [id number] [facility] 2017-07-30 08:25:00 2017-07-30 11:50:00 Departed Emergency Room ER LINDA MADELINE [facility] [id number] [facility] 2017-07-03 07:56:00 2017-07-03 11:17:00 Departed Emergency Room MARTA CODY [facility] [id number] [facility] 2016-11-24 18:59:00 2016-11-24 23:11:00 Departed Emergency Room [facility] [id number] [facility] Results Test Description Test Time Test Comments Results Result Comments Source - CT ABD PELVIS W/CONT 2019-10-13 11:13:00 Patie nt Name: ANGELA ESPINOSA Unit No: [id number] EXAMS: CPT CODE: [id number] CT ABD PELVIS W/CONT [id number] EXAM: - CT ABD PELVIS W/CONT Location: A1 INDICATION: diffuse abd pain COMPARISON: 04/02/2019 Technique: Axial images of the abdomen, and pelvis were obtained after the administration of 100 mL Isovue 300 intravenous contrast. Coronal and sagittal reformatted images were created. One or more of the following dose reduction techniques were used: Automated exposure control, adjustment of the mA and/or kV according to patient size, and/or utilization of iterative reconstruction technique. GFR: Greater than 60 , Creatinine: 0.6 mg/dL DLP: 1435 mGy-cm. FINDINGS: Abdomen Lower thorax: Bandlike atelectasis is noted in the right middle lobe and bilateral lower lobes. There is small left pleural effusion.. Hepatobiliary: There is fatty infiltration of liver. No intrahepatic lesions are seen.. No biliary ductal dilatation. Gallbladder: Surgical absence. Spleen: No visualized abnormality.. Pancreas: No visualized abnormality.. Adrenals: No visualized abnormality.. Kidneys: Multiple nonobstructing calculi are identified within the bilateral kidneys measuring up to 5 mm. There is no significant hydronephrosis or hydroureter. There is small calculus in the distal left ureter at the ureterovesical junction, not seen on prior imaging measuring 4 mm. There is a simple cyst in the upper pole of the left kidney. Bowel: There is small to moderate amount of stool within colon which may indicate mild degree of constipation. There is no colonic wall thickening. Normal caliber appendix is seen in the right lower quadrant. Small bowel loops are normal in caliber. The stomach and gastroesophageal junction are within normal limits. Vessels: No visualized abnormality.. Lymph nodes: No lymphadenopathy. [facility]: CHARITY CrossradhaRoseanne Johnson DO [address] DOB: 1975 Age: 43 Sex: [place] [id number] Loc: P.ERS Exam Date: 10/13/2019 Status: REG ER PH: FAX: PAGE 1 Signed Report (CONTINUED) Patient Name: ANGELA ESPINOSA Unit No: [id number] EXAMS: CPT CODE: [id number] CT ABD PELVIS W/CONT [id number] <Continued> Peritoneum/retroperitoneum: No intraabdominal free air or free fluid. FINDINGS: Pelvis Pelvic organs/bladder: There is surgical absence of the uterus. There is cystic lesion in the right adnexa/ovary measuring 3.0 x 2.4 x 2.9 cm.. There is trace free pelvic fluid which may be physiologic. Lymph nodes: No pelvic or inguinal adenopathy. Bones/soft tissues: No acute fracture or dislocation. No osteolytic or osteosclerotic lesions. IMPRESSION: 1. Fatty infiltration of liver. Please correlate with hepatic profile. 2. 4 mm calculus in the distal left ureter near the ureterovesical junction. No significant hydronephrosis or hydroureter. 3. Further nephrolithiasis. 4. Cyst in the right ovary measuring up to 3.0 cm which is likely unchanged. Consider further characterization with pelvic ultrasound if of continued concern. 5. Surgical absence of the uterus. 6. Small left pleural effusion with adjacent compressive atelectasis. at 1113 Reported and signed by: NABILA LOVE M.D. CC: Roseanne Berman DO; Faith Quan MD Technologist: Melani Kaur CTDI: 25.3 DLP: 1435.12Trscr Dt/Tm: 10/13/2019 (1113) by:[email or web address] Printed Date/Time: 10/13/2019 (1116) Name: [facility]: ELIZABETHSA Perez Roseanne Berman DO [address] DOB: 1975 Age: 43 Sex: [place] [address] Loc: P.ERS Exam Date: 10/13/2019 Status: REG ER PH: FAX: PAGE 2 Signed Report CBC W/AUTO DIFF 2019-10-13 10:18:00 Test Item WHITE BLOOD CELL (test code = WBC) 10.8 x10 3/uL 4.8-10.8 N RED BLOOD CELL (test code = RBC) 4.48 x10 6/uL 4.20-5.40 N HEMOGLOBIN (test code = HGB) 13.2 g/dL 14.5-20 L HEMATOCRIT (test code = HCT) 38.4 % 37.0-47.0 N MEAN CELL VOLUME (test code = MCV) 85.7 fL 81.0-99.0 N MEAN CELL HGB (test code = MCH) 29.5 pg 27-31 N MEAN CELL HGB CONCENTRATION (test code = MCHC) 34.4 G/DL 33-36.5 N RED CELL DISTRIBUTION WIDTH (test code = RDW) 13.7 % 12.9-16. 9 N PLATELET COUNT (test code = PLT) 87 150-440 L (22-24). MEAN PLATELET VOLUME (test code = MPV) 9.0 fL 8.9-12.4 N NEUTROPHIL % (test code = NT%) 73.2 % 42.2-75.2 N LYMPHOCYTE % (test code = LY%) 18.1 % 20.5-51.1 L MONOCYTE % (test code = MO%) 5.4 % 1.7-9.3 N EOSINOPHIL % (test code = EO%) 2.0 % 0.0-7.0 N BASOPHIL % (test code = BA%) 0.5 % 0-2.5 N NEUTROPHIL # (test code = NT#) 7.94 x10 3/uL 1.80-7.70 H LYMPHOCYTE # (test code = LY#) 1.96 x10 3/uL 1.00-4.80 N MONOCYTE # (test code = MO#) 0.58 x10 3/uL 0.00-0.80 N EOSINOPHIL # (test code = EO#) 0.22 x10 3/uL 0.00-0.45 N BASOPHIL # (test code = BA#) 0.05 x10 3/uL 0.0-0.20 N HCG [id number] 09:51:00* Test Item Value Reference Range Interpretation Comments HCG SERUM (test code = HCG) <0.1 mIU/mL INTERPRETATIVE DATA:Beta hCG Quant : Serum samples from healthy individuals </= 0.1 mIUnits/mL hCG for 97.5% of the values obtained from 181 [facility], non- premenopausal women. The corresponding upper 95% confidence limit ranges up to 5.3 mIUnits/mL. </= 0.7 mIUnits/mL hCG for 97.5% of the values obtained from 143 [facility], postmenopausal women. The corresponding upper 95% confidence limit ranges up to 8.3 mIUnits/mL. <2 mIUnits/mL hCG for 97.5% of the values obtained from 290 men. The corresponding upper 95%confidence limit ranges up to 2.6 mIUnits/mL. During (weeks of - definded ascompleted)Intact human chorionic gonadotropin + the B-subunit Weeks of Gestation Mean (mIUnits/mL) Range (mIUnits/mL)3 17.5 5.8 - 71.24 141 9.5 - 7505 1398 217 70555 3339 176 - 838647 23098 7511 - [id number] 73155 02365 - [id number] 661299 09266 - [id number] 06888 35659 - [id number] 00737 56997 - [id number] 97204 87228 - [id number] 10541 50041 - [id number] 14551 9040 [id number] 57627 6416 - [id number] 36180 9144 - 31900 DATE OF LAST MENSTRUAL PERIOD: 10/13/19UA RFLX MICR CULT IF [id number] 09:48:00* Test Item Value Reference Range Interpretation Comments UA COLOR (test code = COLU) PALE YELLOW DISCRIPT YELLOW A UA APPEARANCE (test code = APPU) SLIGHTLY CLOUDY DISCRIPT CLEAR A UA GLUCOSE DIPSTICK (test code = DGLUU) NEGATIVE mg/dL NEGATIVE UA BILIRUBIN DIPSTICK (test code = BILU) NEGATIVE NEGATIVE UA KETONE DIPSTICK (test code = KETU) NEGATIVE mg/dL NEGATIVE UA SPECIFIC GRAVITY (test code = SGU) 1.010 1.005-1.030 UA BLOOD DIPSTICK (test code = MAT) SMALL NEGATIVE A UA PH DIPSTICK (test code = CHARISMA) 6.5 5.0-9.0 UA PROTEIN DIPSTICK (test code = PROU) NEGATIVE mg/dL NEGATIVE UA UROBILINOGEN DIPSTICK (test code = URO) 0.2 mg/dL 0.2-1.0 UA NITRITE DIPSTICK (test code = MANDI) POSITIVE NEGATIVE A UA LEUKOCYTE ESTERASE DIPSTICK (test code = LEUU) SMALL NEGA TIVE A UA WBC (test code = WBCU) 6-10 #WBC/HPF 0-2 A UA RBC (test code = RBCU) 3-5 #RBC/HPF 0-2 A UA BACTERIA (test code = BACU) 2+ /HPF NONE-TRACE A UA SQUAMOUS CELLS (test code = SQU) 2+ /LPF NONE-TRACE A UA RENAL CELLS (test code = VINCENZO) OCCASIONAL /LPF NONE SEEN UA MUCUS (test code = MUCU) 1+ /LPF NONE SEEN A Indication for culture: Suprapubic PainBASIC METABOLIC [id number] 09:45:00* Test Item Value Reference Range Interpretation Comments SODIUM (test code = NA) 136 MMOL/L 136-143 N POTASSIUM (test code = K) 4.2 MMOL/L 3.5-5.1 N CHLORIDE (test code = CL) 98 MMOL/L 98-107 N CARBON DIOXIDE (test code = CO2) 25 mmol/L 24-31 N GLUCOSE (test code = GLU) 147 mg/dL 70-104 H BLOOD UREA NITROGEN (test code = BUN) 8.3 MG/DL 7.0-21.0 N GLOMERULAR FILTRATION RATE (test code = GFR) >=60 max estimate >60 The estimated glomerular filtration rate is computed usingpatient race, age (>18), sex, and serum creatinine. If anyof the needed data elements are missing the Laboratory cannot compute an estimation of the glomerular filtration rate. CREATININE (test code = CREAT) 0.6 mg/dL 0.8-1.5 L CALCIUM (test code = CA) 8.9 mg/dL 8.8-10.2 N LIVER FUNCTION [id number] 09:45:00* Test Item Value Reference Range Interpretation Comments TOTAL PROTEIN (test code = PROT) 7.0 g/dL 6.3-8.3 N ALBUMIN (test code = ALB) 3.8 G/DL 3.5-5.0 N BILIRUBIN TOTAL (test code = BILT) 0.4 mg/dL 0.2-1.0 N BILIRUBIN DIRECT (test code = BILD) <0.2 mg/dL 0.0-0.2 N SGOT/AST (test code = AST) 17 IU/L 10-34 N SGPT/ALT (test code = ALT) 23 U/L 10-36 N ALKALINE PHOSPHATASE (test code = ALKP) 98 U/L 32-104 N [id number] 09:45:00* Test Item Value Reference Range Interpretation Comments LIPASE (test code = LIP) 12 U/L 0-190 N LACTIC [id number] 09:37:00* Test Item Value Reference Range Interpretation Comments LACTIC ACID (test code = LACT) 17.7 mg/dL 4.5-18.0 N CBC W/AUTO [id number] 09:34:00* Test Item Value Reference Range Interpretation Comments WHITE BLOOD CELL (test code = WBC) 10.8 x10 3/uL 4.8-10.8 N RED BLOOD CELL (test code = RBC) 4.48 x10 6/uL 4.20-5.40 N HEMOGLOBIN (test code = HGB) 13.2 g/dL 14.5-20 L HEMATOCRIT (test code = HCT) 38.4 % 37.0-47.0 N MEAN CELL VOLUME (test code = MCV) 85.7 fL 81.0-99.0 N MEAN CELL HGB (test code = MCH) 29.5 pg 27-31 N MEAN CELL HGB CONCENTRATION (test code = MCHC) 34.4 G/DL 33-36.5 N RED CELL DISTRIBUTION WIDTH (test code = RDW) 13.7 % 12.9-16. 9 N PLATELET COUNT (test code = PLT) 150-440 MEAN PLATELET VOLUME (test code = MPV) fL 8.9-12.4 N NEUTROPHIL % (test code = NT%) 73.2 % 42.2-75.2 N LYMPHOCYTE % (test code = LY%) 18.1 % 20.5-51.1 L MONOCYTE % (test code = MO%) 5.4 % 1.7-9.3 N EOSINOPHIL % (test code = EO%) 2.0 % 0.0-7.0 N BASOPHIL % (test code = BA%) 0.5 % 0-2.5 N NEUTROPHIL # (test code = NT#) 7.94 x10 3/uL 1.80-7.70 H LYMPHOCYTE # (test code = LY#) 1.96 x10 3/uL 1.00-4.80 N MONOCYTE # (test code = MO#) 0.58 x10 3/uL 0.00-0.80 N EOSINOPHIL # (test code = EO#) 0.22 x10 3/uL 0.00-0.45 N BASOPHIL # (test code = BA#) 0.05 x10 3/uL 0.0-0.20 N UA RFLX MICR CULT IF [id number] 09:33:00* Test Item Value Reference Range Interpretation Comments UA COLOR (test code = COLU) PALE YELLOW DISCRIPT YELLOW A UA APPEARANCE (test code = APPU) SLIGHTLY CLOUDY DISCRIPT CLEAR A UA GLUCOSE DIPSTICK (test code = DGLUU) NEGATIVE mg/dL NEGATIVE UA BILIRUBIN DIPSTICK (test code = BILU) NEGATIVE NEGATIVE UA KETONE DIPSTICK (test code = KETU) NEGATIVE mg/dL NEGATIVE UA SPECIFIC GRAVITY (test code = SGU) 1.010 1.005-1.030 UA BLOOD DIPSTICK (test code = MAT) SMALL NEGATIVE A UA PH DIPSTICK (test code = CHARISMA) 6.5 5.0-9.0 UA PROTEIN DIPSTICK (test code = PROU) NEGATIVE mg/dL NEGATIVE UA UROBILINOGEN DIPSTICK (test code = URO) 0.2 mg/dL 0.2-1.0 UA NITRITE DIPSTICK (test code = MANDI) POSITIVE NEGATIVE A UA LEUKOCYTE ESTERASE DIPSTICK (test code = LEUU) SMALL NEGA TIVE A UA WBC (test code = WBCU) #WBC/HPF 0-2 UA RBC (test code = RBCU) #RBC/HPF 0-2 UA BACTERIA (test code = BACU) /HPF NONE-TRACE UA SQUAMOUS CELLS (test code = SQU) /LPF NONE-TRACE Indication for culture: Suprapubic PainCOMPREHENSIVE METABOLIC PANEL 2019-10-12 08:35:00* Test Item Value Reference Range Interpretation Comments SODIUM (test code = NA) 137 mEq/L 135-145 N POTASSIUM (test code = K) 3.9 mEq/L 3.5-5.0 N CHLORIDE (test code = CL) 102 mEq/L 100-115 N CARBON DIOXIDE (test code = CO2) 26 mEq/L 22-31 N ANION GAP (test code = GAP) 12.70 10-20 N GLUCOSE (test code = GLU) 147 mg/dL 65-110 H BLOOD UREA NITROGEN (test code = BUN) 10 mg/dL 7-18 N GLOMERULAR FILTRATION RATE (test code = GFR) 79 ml/min >60 N CREATININE (test code = CREAT) 0.8 mg/dL 0.5-1.0 N TOTAL PROTEIN (test code = PROT) 6.6 gm/dL 6.3-8.2 N ALBUMIN (test code = ALB) 3.2 gm/dL 3.4-4.8 L CALCIUM (test code = CA) 8.8 mg/dL 8.4-10.2 N BILIRUBIN TOTAL (test code = BILT) 0.4 mg/dL 0.2-1.0 N SGOT/AST (test code = AST) 18 units/L 15-37 N SGPT/ALT (test code = ALT) 35 units/L 12-78 N ALKALINE PHOSPHATASE TOTAL (test code = ALKP) 99 units/L 46-116 N [id number] 08:35:00* Test Item Value Reference Range Interpretation Comments AMYLASE (test code = JANIE) 28 units/L 30-110 L [id number] 08:35:00* Test Item Value Reference Range Interpretation Comments LIPASE (test code = LIP) 60 units/L 73-393 L UA RFLX MICR CULT IF [id number] 08:27:00* Test Item Value Reference Range Interpretation Comments UA COLOR (test code = COLU) YELLOW YELLOW UA APPEARANCE (test code = APPU) CLOUDY CLEAR A UA GLUCOSE DIPSTICK (test code = DGLUU) NEGATIVE NEG UA BILIRUBIN DIPSTICK (test code = BILU) NEGATIVE NEG UA KETONE DIPSTICK (test code = KETU) NEGATIVE NEG UA SPECIFIC GRAVITY (test code = SGU) 1.008 1.001-1.035 N UA BLOOD DIPSTICK (test code = MAT) NEG NEG UA PH DIPSTICK (test code = CHARISMA) 6.0 5-9 UA PROTEIN DIPSTICK (test code = PROU) NEGATIVE NEG UA UROBILINIOGEN DIPSTICK (test code = URO) NEGATIVE mg/dL NEG UA NITRITE DIPSTICK (test code = MANDI) POSITIVE NEG A UA LEUKOCYTE ESTERASE DIPSTICK (test code = LEUU) 2+ NEG A UA WBC (test code = WBCU) TOO NUMEROUS TO CNT #/hpf NONE SEEN A UA RBC (test code = RBCU) 6-10 #/hpf NONE SEEN A UA EPITHELIAL CELLS (test code = EPIU) MANY #/HPF RARE-FEW A UA BACTERIA (test code = BACU) MANY /HPF RARE-FEW A UA MUCUS (test code = MUCU) 1+ NONE SEEN Indication for culture: Suprapubic PainUR HCG [id number] 08:27:00* Test Item Value Reference Range Interpretation Comments UR HCG QUAL (test code = HCGQLU) NEGATIVE 1. Very dilute urine specimens, as indicated by a lowspecific gravity, may not contain group sales representative levels ofhCG. 2. False negative results may occur when the levels of hCGare below the sensitivity level of the test. If is still suspected, a first morningurine specimen should be collected 48 hours later andtested. Indication for culture: Suprapubic PainCBC W/AUTO [id number] 08:17:00* Test Item Value Reference Range Interpretation Comments WHITE BLOOD CELL (test code = WBC) 10.6 K/mm3 6.6-12.1 N RED BLOOD CELL (test code = RBC) 4.42 M/mm3 3.45-5.01 N HEMOGLOBIN (test code = HGB) 13.0 g/dL 10.7-13.9 N HEMATOCRIT (test code = HCT) 38.7 % 32.1-42.1 N MEAN CELL VOLUME (test code = MCV) 88 fL 84.1-94.8 N MEAN CELL HGB (test code = MCH) 29.4 pg 27-35 N MEAN CELL HGB CONCETRATION (test code = MCHC) 33.6 gm/dL 32.2-34. 1 N RED CELL DISTRIBUTION WIDTH (test code = RDW) 13.6 % 12.4-16. 5 N PLATELET COUNT (test code = PLT) 118 K/mm3 133-385 L MEAN PLATELET VOLUME (test code = MPV) 9.2 fl 9.1-12.7 N NEUTROPHIL % (test code = NT%) 72.4 % 56.5-79.4 N LYMPHOCYTE % (test code = LY%) 18.2 % 14.3-34.3 N MONOCYTE % (test code = MO%) 6.1 % 5.1-10.4 N EOSINOPHIL % (test code = EO%) 2.2 % 0.1-3.0 N BASOPHIL % (test code = BA%) 0.5 % 0.1-1.0 N NEUTROPHIL # (test code = NT#) 7.7 K/mm3 LYMPHOCYTE # (test code = LY#) 1.9 K/mm3 MONOCYTE # (test code = MO#) 0.7 K/mm3 EOSINOPHIL # (test code = EO#) 0.23 K/mm3 BASOPHIL # (test code = BA#) 0.1 K/mm3 RBC MORPHOLOGY REQUIRED (test code = RBCM) NORMAL NORMAL PLATELET MORPHOLOGY REQUIRED (test code = PLTMR) NORMAL YOANA L UA RFLX MICR CULT IF [id number] 08:03:00* Test Item Value Reference Range Interpretation Comments UA COLOR (test code = COLU) YELLOW UA APPEARANCE (test code = APPU) CLEAR UA GLUCOSE DIPSTICK (test code = DGLUU) NEGATIVE UA BILIRUBIN DIPSTICK (test code = BILU) NEGATIVE UA KETONE DIPSTICK (test code = KETU) NEGATIVE UA SPECIFIC GRAVITY (test code = SGU) 1.001-1.035 UA BLOOD DIPSTICK (test code = MAT) NEGATIVE UA PH DIPSTICK (test code = CHARISMA) 5-9 UA PROTEIN DIPSTICK (test code = PROU) NEGATIVE UA UROBILINIOGEN DIPSTICK (test code = URO) mg/dL NEG UA NITRITE DIPSTICK (test code = MANDI) NEGATIVE UA LEUKOCYTE ESTERASE DIPSTICK (test code = LEUU) NEG UA WBC (test code = WBCU) #/hpf NONE SEEN UA EPITHELIAL CELLS (test code = EPIU) #/HPF RARE-FEW Indication for culture: Suprapubic PainUR HCG [id number] 08:03:00* Test Item Value Reference Range Interpretation Comments UR HCG QUAL (test code = HCGQLU) NEGATIVE 1. Very dilute urine specimens, as indicated by a lowspecific gravity, may not contain group sales representative levels ofhCG. 2. False negative results may occur when the levels of hCGare below the sensitivity level of the test. If is still suspected, a first morningurine specimen should be collected 48 hours later andtested. Indication for culture: Suprapubic PainDRUGS OF ABUSE [id number] 09:18:00* Test Item Value Reference Range Interpretation Comments UR COCAINE (test code = COCAU) NEGATIVE NEGATIVE DETECTION CUT OFF: 150 ng/mL UR CANNABINOIDS (test code = CANU) POSITIVE NEGATIVE A RESULTS CALLED TO JOR[facility] [employer] BACK & CONFIRMED? [facility] F.LAB.KG 10/08/19916. DETECTION CUT OFF: 50 ng/mL UR AMPHETAMINE (test code = AMPHU) NEGATIVE NEGATIVE DETECTION CUT OFF: 500 ng/mL UR BARBITURATE QUAL (test code = BARBQLU) NEGATIVE NEGATIVE DETECTION CUT OFF: 200 ng/mL UR BENZODIAZEPINE (test code = BENZU) POSITIVE NEGATIVE A RESULTS CALLED TO [employer] BACK & CONFIRMED? [facility] F.LAB.KG 10/08/19916. DETECTION CUT OFF: 150 ng/mL UR OPIATES QUAL (test code = OPIAQLU) NEGATIVE NEGATIVE DETECTION CUT OFF: 100 ng/mL UR PHENCYCLIDINE (PCP) (test code = PHENCU) NEGATIVE NEGATIVE DETECTION CUT OFF: 25 ng/mL COMPREHENSIVE METABOLIC [id number] 09:18:00* Test Item Value Reference Range Interpretation Comments SODIUM (test code = NA) 136 mEq/L 135-145 N POTASSIUM (test code = K) 3.7 mEq/L 3.5-5.0 N CHLORIDE (test code = CL) 100 mEq/L 100-115 N CARBON DIOXIDE (test code = CO2) 26 mEq/L 22-31 N ANION GAP (test code = GAP) 13.90 10-20 N GLUCOSE (test code = GLU) 147 mg/dL 65-110 H BLOOD UREA NITROGEN (test code = BUN) 13 mg/dL 7-18 N GLOMERULAR FILTRATION RATE (test code = GFR) 69 ml/min >60 N CREATININE (test code = CREAT) 0.9 mg/dL 0.5-1.0 N TOTAL PROTEIN (test code = PROT) 6.9 gm/dL 6.3-8.2 N ALBUMIN (test code = ALB) 3.4 gm/dL 3.4-4.8 N CALCIUM (test code = CA) 8.7 mg/dL 8.4-10.2 N BILIRUBIN TOTAL (test code = BILT) 0.2 mg/dL 0.2-1.0 N SGOT/AST (test code = AST) 20 units/L 15-37 N SGPT/ALT (test code = ALT) 37 units/L 12-78 N ALKALINE PHOSPHATASE TOTAL (test code = ALKP) 108 units/L 46-116 N [id number] 09:18:00* Test Item Value Reference Range Interpretation Comments AMYLASE (test code = JANIE) 52 units/L 30-110 N [id number] 09:18:00* Test Item Value Reference Range Interpretation Comments LIPASE (test code = LIP) 180 units/L 73-393 N BENZODIAZEPINE [id number] 09:18:00* Test Item Value Reference Range Interpretation Comments OXAZEPAM (test code = OXAZ) TEMAZEPAM (test code = CLAUDE) FLURAZEPAM (test code = FLUR) UA RFLX MICR CULT IF [id number] 08:29:00* Test Item Value Reference Range Interpretation Comments UA COLOR (test code = COLU) YELLOW YELLOW UA APPEARANCE (test code = APPU) CLOUDY CLEAR A UA GLUCOSE DIPSTICK (test code = DGLUU) NEGATIVE NEG UA BILIRUBIN DIPSTICK (test code = BILU) NEGATIVE NEG UA KETONE DIPSTICK (test code = KETU) NEGATIVE NEG UA SPECIFIC GRAVITY (test code = SGU) 1.013 1.001-1.035 N UA BLOOD DIPSTICK (test code = MAT) NEG NEG UA PH DIPSTICK (test code = CHARISMA) 6.0 5-9 UA PROTEIN DIPSTICK (test code = PROU) NEGATIVE NEG UA UROBILINIOGEN DIPSTICK (test code = URO) NEGATIVE mg/dL NEG UA NITRITE DIPSTICK (test code = MANDI) POSITIVE NEG A UA LEUKOCYTE ESTERASE DIPSTICK (test code = LEUU) TRACE NEG A UA WBC (test code = WBCU) 3-5 #/hpf NONE SEEN A UA RBC (test code = RBCU) 0-2 #/hpf NONE SEEN UA EPITHELIAL CELLS (test code = EPIU) FEW #/HPF RARE-FEW UA BACTERIA (test code = BACU) MANY /HPF RARE-FEW A UA MUCUS (test code = MUCU) RARE NONE SEEN Indication for culture: Dysuria/FrequencyCOMPREHENSIVE METABOLIC PANEL 2019-10-08 08:27:00* Test Item Value Reference Range Interpretation Comments SODIUM (test code = NA) 136 mEq/L 135-145 N POTASSIUM (test code = K) 3.7 mEq/L 3.5-5.0 N CHLORIDE (test code = CL) 100 mEq/L 100-115 N CARBON DIOXIDE (test code = CO2) 26 mEq/L 22-31 N ANION GAP (test code = GAP) 13.90 10-20 N GLUCOSE (test code = GLU) 147 mg/dL 65-110 H BLOOD UREA NITROGEN (test code = BUN) 13 mg/dL 7-18 N GLOMERULAR FILTRATION RATE (test code = GFR) 69 ml/min >60 N CREATININE (test code = CREAT) 0.9 mg/dL 0.5-1.0 N TOTAL PROTEIN (test code = PROT) 6.9 gm/dL 6.3-8.2 N ALBUMIN (test code = ALB) 3.4 gm/dL 3.4-4.8 N CALCIUM (test code = CA) 8.7 mg/dL 8.4-10.2 N BILIRUBIN TOTAL (test code = BILT) 0.2 mg/dL 0.2-1.0 N SGOT/AST (test code = AST) 20 units/L 15-37 N SGPT/ALT (test code = ALT) 37 units/L 12-78 N ALKALINE PHOSPHATASE TOTAL (test code = ALKP) 108 units/L 46-116 N [id number] 08:27:00* Test Item Value Reference Range Interpretation Comments AMYLASE (test code = JANIE) 52 units/L 30-110 N [id number] 08:27:00* Test Item Value Reference Range Interpretation Comments LIPASE (test code = LIP) 180 units/L 73-393 N UR HCG [id number] 08:21:00* Test Item Value Reference Range Interpretation Comments UR HCG QUAL (test code = HCGQLU) NEGATIVE 1. Very dilute urine specimens, as indicated by a lowspecific gravity, may not contain group sales representative levels ofhCG. 2. False negative results may occur when the levels of hCGare below the sensitivity level of the test. If is still suspected, a first morningurine specimen should be collected 48 hours later andtested. - XR ABDOMEN 1 [id number] 08:11:00 Patient Name: ANGELA ESPINOSA Unit No: [id number] EXAMS: CPT CODE: [id number] XR ABDOMEN 1 V [id number] EXAMINATION: Abdomen one view 10/08/2019 at 0756 hours. CLINICAL HISTORY: Upper abdominal pain. COMPARISON: CT scan abdomen and pelvis 08/18/2019. FINDINGS: 3 images are provided for interpretation. Surgical clips are present projected over the right upper quadrant and left mid abdomen. The bowel gas pattern is nonspecific and nonobstructive. No dilated air-filled small bowel is evident. There is no evidence of free intraperitoneal air. However, evaluation for this is suboptimal in the absence of upright or decubitus imaging. The small bilateral renal calculi seen on CT scan are not evident radiographically. The visualized osseous structures are within normal limits. IMPRESSION: No acute abnormalities. at 0811 Reported and signed by: Cheryl Camacho MD CC: Robe Hedrick MD Technologist: RT Robert Trnscrbd D/ [phone] Orig Print D/T: S: 10/08/2019 (813) [facility] NAME: ANGELA ESPINOSA Radiology Department PHYS: Robe Stauffer [address] : 1975 AGE: 43 SEX: F [place], [place] [address] LOC: F.ERS PHONE #: [phone] EXAM DATE: 10/08/2019 [facility]: REG ER FAX #: [phone] RAD NO: Page 1 Signed Report CBC W/AUTO DIFF 2019-10-08 07:50:00* Test Item Value Reference Range Interpretation Comments WHITE BLOOD CELL (test code = WBC) 9.7 K/mm3 6.6-12.1 N RED BLOOD CELL (test code = RBC) 4.59 M/mm3 3.45-5.01 N HEMOGLOBIN (test code = HGB) 13.4 g/dL 10.7-13.9 N HEMATOCRIT (test code = HCT) 41.4 % 32.1-42.1 N MEAN CELL VOLUME (test code = MCV) 90 fL 84.1-94.8 N MEAN CELL HGB (test code = MCH) 29.2 pg 27-35 N MEAN CELL HGB CONCETRATION (test code = MCHC) 32.4 gm/dL 32.2-34. 1 N RED CELL DISTRIBUTION WIDTH (test code = RDW) 13.9 % 12.4-16. 5 N PLATELET COUNT (test code = PLT) 276 K/mm3 133-385 N MEAN PLATELET VOLUME (test code = MPV) 9.8 fl 9.1-12.7 N NEUTROPHIL % (test code = NT%) 65.9 % 56.5-79.4 N LYMPHOCYTE % (test code = LY%) 26.7 % 14.3-34.3 N MONOCYTE % (test code = MO%) 4.4 % 5.1-10.4 L EOSINOPHIL % (test code = EO%) 2.2 % 0.1-3.0 N BASOPHIL % (test code = BA%) 0.4 % 0.1-1.0 N NEUTROPHIL # (test code = NT#) 6.4 K/mm3 LYMPHOCYTE # (test code = LY#) 2.6 K/mm3 MONOCYTE # (test code = MO#) 0.4 K/mm3 EOSINOPHIL # (test code = EO#) 0.21 K/mm3 BASOPHIL # (test code = BA#) 0.0 K/mm3 RBC MORPHOLOGY REQUIRED (test code = RBCM) NORMAL NORMAL PLATELET MORPHOLOGY REQUIRED (test code = PLTMR) NORMAL YOANA L COMPREHENSIVE METABOLIC [id number] 11:47:00* Test Item Value Reference Range Interpretation Comments SODIUM (test code = NA) 136 mEq/L 135-145 N POTASSIUM (test code = K) 4.1 mEq/L 3.5-5.0 N CHLORIDE (test code = CL) 102 mEq/L 100-115 N CARBON DIOXIDE (test code = CO2) 24 mEq/L 22-31 N ANION GAP (test code = GAP) 14.50 10-20 N GLUCOSE (test code = GLU) 98 mg/dL 65-110 N BLOOD UREA NITROGEN (test code = BUN) 12 mg/dL 7-18 N GLOMERULAR FILTRATION RATE (test code = GFR) 61 ml/min >60 N CREATININE (test code = CREAT) 1.0 mg/dL 0.5-1.0 N TOTAL PROTEIN (test code = PROT) 7.1 gm/dL 6.3-8.2 N ALBUMIN (test code = ALB) 3.6 gm/dL 3.4-4.8 N CALCIUM (test code = CA) 8.6 mg/dL 8.4-10.2 N BILIRUBIN TOTAL (test code = BILT) 0.3 mg/dL 0.2-1.0 N SGOT/AST (test code = AST) 32 units/L 15-37 N SGPT/ALT (test code = ALT) 52 units/L 12-78 N ALKALINE PHOSPHATASE TOTAL (test code = ALKP) 102 units/L 46-116 N [id number] 11:47:00* Test Item Value Reference Range Interpretation Comments LIPASE (test code = LIP) 126 units/L 73-393 N [id number] 11:47:00* Test Item Value Reference Range Interpretation Comments TROPONIN-I (test code = TROPI) <0.017 ng/mL <0.056 N UA RFLX MICR CULT IF [id number] 11:32:00* Test Item Value Reference Range Interpretation Comments UA COLOR (test code = COLU) YELLOW YELLOW UA APPEARANCE (test code = APPU) CLOUDY CLEAR A UA GLUCOSE DIPSTICK (test code = DGLUU) NEGATIVE NEG UA BILIRUBIN DIPSTICK (test code = BILU) NEGATIVE NEG UA KETONE DIPSTICK (test code = KETU) NEGATIVE NEG UA SPECIFIC GRAVITY (test code = SGU) 1.009 1.001-1.035 N UA BLOOD DIPSTICK (test code = MAT) NEG NEG UA PH DIPSTICK (test code = CHARISMA) 5.0 5-9 UA PROTEIN DIPSTICK (test code = PROU) NEGATIVE NEG UA UROBILINIOGEN DIPSTICK (test code = URO) NEGATIVE mg/dL NEG UA NITRITE DIPSTICK (test code = MANDI) POSITIVE NEG A UA LEUKOCYTE ESTERASE DIPSTICK (test code = LEUU) 2+ NEG A UA WBC (test code = WBCU) 41-50 #/hpf NONE SEEN A UA RBC (test code = RBCU) 6-10 #/hpf NONE SEEN A UA EPITHELIAL CELLS (test code = EPIU) MODERATE #/HPF RARE-FEW A UA BACTERIA (test code = BACU) MANY /HPF RARE-FEW A UA MUCUS (test code = MUCU) 1+ NONE SEEN Indication for culture: Suprapubic PainUR HCG [id number] 11:32:00* Test Item Value Reference Range Interpretation Comments UR HCG QUAL (test code = HCGQLU) NEGATIVE 1. Very dilute urine specimens, as indicated by a lowspecific gravity, may not contain group sales representative levels ofhCG. 2. False negative results may occur when the levels of hCGare below the sensitivity level of the test. If is still suspected, a first morningurine specimen should be collected 48 hours later andtested. Indication for culture: Suprapubic PainCBC W/AUTO [id number] 11:32:00* Test Item Value Reference Range Interpretation Comments WHITE BLOOD CELL (test code = WBC) 7.2 K/mm3 6.6-12.1 N RED BLOOD CELL (test code = RBC) 4.62 M/mm3 3.45-5.01 N HEMOGLOBIN (test code = HGB) 13.7 g/dL 10.7-13.9 N HEMATOCRIT (test code = HCT) 41.8 % 32.1-42.1 N MEAN CELL VOLUME (test code = MCV) 91 fL 84.1-94.8 N MEAN CELL HGB (test code = MCH) 29.7 pg 27-35 N MEAN CELL HGB CONCETRATION (test code = MCHC) 32.8 gm/dL 32.2-34. 1 N RED CELL DISTRIBUTION WIDTH (test code = RDW) 14.2 % 12.4-16. 5 N PLATELET COUNT (test code = PLT) 278 K/mm3 133-385 N MEAN PLATELET VOLUME (test code = MPV) 9.6 fl 9.1-12.7 N NEUTROPHIL % (test code = NT%) 59.4 % 56.5-79.4 N LYMPHOCYTE % (test code = LY%) 30.1 % 14.3-34.3 N MONOCYTE % (test code = MO%) 5.6 % 5.1-10.4 N EOSINOPHIL % (test code = EO%) 3.3 % 0.1-3.0 H BASOPHIL % (test code = BA%) 0.8 % 0.1-1.0 N NEUTROPHIL # (test code = NT#) 4.3 K/mm3 LYMPHOCYTE # (test code = LY#) 2.2 K/mm3 MONOCYTE # (test code = MO#) 0.4 K/mm3 EOSINOPHIL # (test code = EO#) 0.24 K/mm3 BASOPHIL # (test code = BA#) 0.1 K/mm3 RBC MORPHOLOGY REQUIRED (test code = RBCM) NORMAL NORMAL PLATELET MORPHOLOGY REQUIRED (test code = PLTMR) NORMAL YOANA L UA RFLX MICR CULT IF [id number] 11:25:00* Test Item Value Reference Range Interpretation Comments UA COLOR (test code = COLU) YELLOW UA APPEARANCE (test code = APPU) CLEAR UA GLUCOSE DIPSTICK (test code = DGLUU) NEGATIVE UA BILIRUBIN DIPSTICK (test code = BILU) NEGATIVE UA KETONE DIPSTICK (test code = KETU) NEGATIVE UA SPECIFIC GRAVITY (test code = SGU) 1.001-1.035 UA BLOOD DIPSTICK (test code = MAT) NEGATIVE UA PH DIPSTICK (test code = CHARISMA) 5-9 UA PROTEIN DIPSTICK (test code = PROU) NEGATIVE UA UROBILINIOGEN DIPSTICK (test code = URO) mg/dL NEG UA NITRITE DIPSTICK (test code = MANDI) NEGATIVE UA LEUKOCYTE ESTERASE DIPSTICK (test code = LEUU) NEG UA WBC (test code = WBCU) #/hpf NONE SEEN UA EPITHELIAL CELLS (test code = EPIU) #/HPF RARE-FEW Indication for culture: Suprapubic PainUR HCG [id number] 11:25:00* Test Item Value Reference Range Interpretation Comments UR HCG QUAL (test code = HCGQLU) NEGATIVE 1. Very dilute urine specimens, as indicated by a lowspecific gravity, may not contain group sales representative levels ofhCG. 2. False negative results may occur when the levels of hCGare below the sensitivity level of the test. If is still suspected, a first morningurine specimen should be collected 48 hours later andtested. Indication for culture: Suprapubic Pain- US ABDOMEN [id number] 14:16:00 Patient Name: ANGELA ESPINOSA Unit No: [id number] EXAMS: CPT CODE: [id number] US ABDOMEN COMPLETE 98228 EXAMINATION: Abdominal Ultrasound EXAM DATE: August 07, 2018. CLINICAL HISTORY:LUQ pain. COMPARISON: CT abdomen and pelvis August 18, 2019 Realtime sonographic evaluation of the abdomen was performed. Increased echogenicity of the liver compatible with hepatic steatosis as seen on prior CT scan is again identified. No focal masses are noted. The liver measures 23.5 cm. The spleen is unremarkable. The spleen measures 10.1 x 6.3 x 4.3 cm.. The gallbladder is surgically absent. The common bile duct is within normal limits measuring 0.4 cm in AP diameter. Visualized portions of the pancreas are unremarkable. The right kidney measures 12.0 x 4.7 x 5.6 cm.The left kidney measures 13.8 x 5.5 x 4.5 cm. A small nonshadowing echogenic focus is seen in the midpole of the right kidney. This may represent an artifact or a small nonobstructing calculus. The kidneys are otherwise are within normal limits in size and sonographic appearance without evidence of mass or hydronephrosis. No free fluid is present. The aorta and IVC are unremarkable in the visualized portions. IMPRESSION: 1. Mild hepatomegaly and evidence of hepatic steatosis. 2. Status post cholecystectomy. 3. Small punctate echogenic focus in the right kidney may represent a small nonobstructing stone. at 1416 Reported and signed by: Sera Nielson MD CC: Leslie Forrest MD Technologist: Melinda Marrufo RDMS Probe: Trnscrbd D/ (1416) t.SDR.CER Orig Print D/T: S: 09/25/2019 (2199) [facility] NAME: ANGELA DUPREE Radiology Department PHYS: PATSH. Wilson - Leslie Forrest MD [address] : 1975 A GE: 43 SEX: F [place], [place] [address] L OC: F.ERS PHONE #: [phone] EXAM DATE: 09/25/2019 STATU S: REG ER FAX #: [phone] RAD NO: Page 1 Signed Report Patient Name: ABRIL SouzaANGELA Unit No: [id number] EXAMS: CPT CODE: [id number] US ABDOMEN COMPLETE 72199 <Continued> [facility] NAME: ANGELA ESPINOSA Radiology Department PHYS: Leslie Levy MD [address] : 1975 AGE: 43 SEX: F [place], [place] [address] LOC: ALIVIA PHONE #: [phone] EXAM DATE: 09/25/2019 STATUS: REG ER FAX #: [phone] RAD NO: Page 2 Signed Report COMPREHENSIVE METABOLIC PANEL 2019-09-25 13:51:00* Test Item Value Reference Range Interpretation Comments SODIUM (test code = NA) 141 mEq/L 135-145 N POTASSIUM (test code = K) 3.2 mEq/L 3.5-5.0 L CHLORIDE (test code = CL) 106 mEq/L 100-115 N CARBON DIOXIDE (test code = CO2) 26 mEq/L 22-31 N ANION GAP (test code = GAP) 12.70 10-20 N GLUCOSE (test code = GLU) 112 mg/dL 65-110 H BLOOD UREA NITROGEN (test code = BUN) 11 mg/dL 7-18 N GLOMERULAR FILTRATION RATE (test code = GFR) 61 ml/min >60 N CREATININE (test code = CREAT) 1.0 mg/dL 0.5-1.0 N TOTAL PROTEIN (test code = PROT) 6.5 gm/dL 6.3-8.2 N ALBUMIN (test code = ALB) 3.3 gm/dL 3.4-4.8 L CALCIUM (test code = CA) 8.3 mg/dL 8.4-10.2 L BILIRUBIN TOTAL (test code = BILT) 0.3 mg/dL 0.2-1.0 N SGOT/AST (test code = AST) 29 units/L 15-37 N SGPT/ALT (test code = ALT) 44 units/L 12-78 N ALKALINE PHOSPHATASE TOTAL (test code = ALKP) 81 units/L 46-116 N DRUGS OF ABUSE [id number] 13:31:00* Test Item Value Reference Range Interpretation Comments UR COCAINE (test code = COCAU) NEGATIVE NEGATIVE DETECTION CUT OFF: 150 ng/mL UR CANNABINOIDS (test code = CANU) POSITIVE NEGATIVE A RESULTS CALLED TO DR FORREST.READ BACK & CONFIRMED? YES.BY F.LAB. 09/25/19 1331. DETECTION CUT OFF: 50 ng/mL UR AMPHETAMINE (test code = AMPHU) NEGATIVE NEGATIVE DETECTION CUT OFF: 500 ng/mL UR BARBITURATE QUAL (test code = BARBQLU) NEGATIVE NEGATIVE DETECTION CUT OFF: 200 ng/mL UR BENZODIAZEPINE (test code = BENZU) POSITIVE NEGATIVE A RESULTS CALLED TO DR FORREST.READ BACK & CONFIRMED? YES.BY JACQUIE 09/25/19 133. DETECTION CUT OFF: 150 ng/mL UR OPIATES QUAL (test code = OPIAQLU) NEGATIVE NEGATIVE DETECTION CUT OFF: 100 ng/mL UR PHENCYCLIDINE (PCP) (test code = PHENCU) NEGATIVE NEGATIVE DETECTION CUT OFF: 25 ng/mL UA RFLX MICR CULT IF [id number] 13:22:00* Test Item Value Reference Range Interpretation Comments UA COLOR (test code = COLU) YELLOW YELLOW UA APPEARANCE (test code = APPU) Slightly-Cloudy CLEAR UA GLUCOSE DIPSTICK (test code = DGLUU) NEGATIVE NEG UA BILIRUBIN DIPSTICK (test code = BILU) NEGATIVE NEG UA KETONE DIPSTICK (test code = KETU) NEGATIVE NEG UA SPECIFIC GRAVITY (test code = SGU) 1.012 1.001-1.035 N UA BLOOD DIPSTICK (test code = MAT) NEG NEG UA PH DIPSTICK (test code = CHARISMA) 6.0 5-9 UA PROTEIN DIPSTICK (test code = PROU) NEGATIVE NEG UA UROBILINIOGEN DIPSTICK (test code = URO) NEGATIVE mg/dL NEG UA NITRITE DIPSTICK (test code = MANDI) POSITIVE NEG A UA LEUKOCYTE ESTERASE DIPSTICK (test code = LEUU) 1+ NEG A UA WBC (test code = WBCU) 16-20 #/hpf NONE SEEN A UA RBC (test code = RBCU) 3-5 #/hpf NONE SEEN A UA EPITHELIAL CELLS (test code = EPIU) MODERATE #/HPF RARE-FEW A UA BACTERIA (test code = BACU) MANY /HPF RARE-FEW A UA MUCUS (test code = MUCU) RARE NONE SEEN UA YEAST (test code = YEASTU) RARE #/hpf NONE SEEN A Indication for culture: Suprapubic PainUR HCG [id number] 13:22:00* Test Item Value Reference Range Interpretation Comments UR HCG QUAL (test code = HCGQLU) NEGATIVE 1. Very dilute urine specimens, as indicated by a lowspecific gravity, may not contain group sales representative levels ofhCG. 2. False negative results may occur when the levels of hCGare below the sensitivity level of the test. If is still suspected, a first morningurine specimen should be collected 48 hours later andtested. Indication for culture: Suprapubic PainCBC W/AUTO [id number] 13:17:00* Test Item Value Reference Range Interpretation Comments WHITE BLOOD CELL (test code = WBC) 10.3 K/mm3 6.6-12.1 N RED BLOOD CELL (test code = RBC) 4.05 M/mm3 3.45-5.01 N HEMOGLOBIN (test code = HGB) 11.9 g/dL 10.7-13.9 N HEMATOCRIT (test code = HCT) 36.1 % 32.1-42.1 N MEAN CELL VOLUME (test code = MCV) 89 fL 84.1-94.8 N MEAN CELL HGB (test code = MCH) 29.4 pg 27-35 N MEAN CELL HGB CONCETRATION (test code = MCHC) 33.0 gm/dL 32.2-34. 1 N RED CELL DISTRIBUTION WIDTH (test code = RDW) 14.3 % 12.4-16. 5 N PLATELET COUNT (test code = PLT) 322 K/mm3 133-385 N IMMATURE PLATELET FRACTION (test code = IPF) 1.3 % 0.0-10.8 N MEAN PLATELET VOLUME (test code = MPV) 9.0 fl 9.1-12.7 L NEUTROPHIL % (test code = NT%) 69.9 % 56.5-79.4 N LYMPHOCYTE % (test code = LY%) 22.7 % 14.3-34.3 N MONOCYTE % (test code = MO%) 5.2 % 5.1-10.4 N EOSINOPHIL % (test code = EO%) 1.2 % 0.1-3.0 N BASOPHIL % (test code = BA%) 0.4 % 0.1-1.0 N NEUTROPHIL # (test code = NT#) 7.2 K/mm3 LYMPHOCYTE # (test code = LY#) 2.3 K/mm3 MONOCYTE # (test code = MO#) 0.5 K/mm3 EOSINOPHIL # (test code = EO#) 0.12 K/mm3 BASOPHIL # (test code = BA#) 0.0 K/mm3 RBC MORPHOLOGY REQUIRED (test code = RBCM) NORMAL NORMAL PLATELET MORPHOLOGY REQUIRED (test code = PLTMR) NORMAL YOANA L UA RFLX MICR CULT IF [id number] 13:13:00* Test Item Value Reference Range Interpretation Comments UA COLOR (test code = COLU) YELLOW UA APPEARANCE (test code = APPU) CLEAR UA GLUCOSE DIPSTICK (test code = DGLUU) NEGATIVE UA BILIRUBIN DIPSTICK (test code = BILU) NEGATIVE UA KETONE DIPSTICK (test code = KETU) NEGATIVE UA SPECIFIC GRAVITY (test code = SGU) 1.001-1.035 UA BLOOD DIPSTICK (test code = MAT) NEGATIVE UA PH DIPSTICK (test code = CHARISMA) 5-9 UA PROTEIN DIPSTICK (test code = PROU) NEGATIVE UA UROBILINIOGEN DIPSTICK (test code = URO) mg/dL NEG UA NITRITE DIPSTICK (test code = MANDI) NEGATIVE UA LEUKOCYTE ESTERASE DIPSTICK (test code = LEUU) NEG UA WBC (test code = WBCU) #/hpf NONE SEEN UA EPITHELIAL CELLS (test code = EPIU) #/HPF RARE-FEW Indication for culture: Suprapubic PainUR HCG [id number] 13:13:00* Test Item Value Reference Range Interpretation Comments UR HCG QUAL (test code = HCGQLU) NEGATIVE 1. Very dilute urine specimens, as indicated by a lowspecific gravity, may not contain group sales representative levels ofhCG. 2. False negative results may occur when the levels of hCGare below the sensitivity level of the test. If is still suspected, a first morningurine specimen should be collected 48 hours later andtested. Indication for culture: Suprapubic PainLACTIC [id number] 16:41:00* Test Item Value Reference Range Interpretation Comments LACTIC ACID (test code = LACT) 1.5 mmol/L 0.4-1.9 N STREPTOCOCCUS PCR [id number] 16:24:00* Test Item Value Reference Range Interpretation Comments STREPTOCOCCUS DYSGALACTIAE (test code = STREPGC) NEGATIVE FOR G/C N EGATIVE STREPA MOLECULAR (test code = STREPAMOL) NEGATIVE FOR GRP A NEGATIV E - CT ABD PELVIS [id number] 16:06:00 Name: ANGELA ESPINOSA [facility] : 1975 Age/S: 43 / F [address] Unit #: [id number] Loc: [facility] [place] [address] Phys: Kye Pisano MD Acct: [id number] Dis Date: Status: REG ER PHONE #: [phone] Exam Date: 08/18/2019 1541 FAX #: [phone] Reason: RLQ pain EXAMS: CPT CODE: [id number] CT ABD PELVIS W/CONT 01154 HISTORY: Right lower quadrant pain. COMPARISON: August 01, 2019. Location: TH. CT abdomen and pelvis with IV contrast: Automated exposure control. CT of abdomen: The lung bases are clear. The liver is severely fatty infiltrated. No mass or abnormal enhancement. Portal vein and hepatic artery are patent. Patient is post cholecystectomy. The liver measured 20.2 cm in length. The spleen is enhancing homogeneously. The stomach distended incompletely and is very limited in evaluation. Pancreas enhances homogeneously. Adrenals are normal. Kidneys are free from hydroureteronephrosis. Punctate bilateral 1 to 2 mm calyceal stones. Homogeneous enhancement. lobulations. Bilateral excretion. Subcentimeter low-attenuation lesion in the lateral left interpolar region is too small to be characterized. No pathologic adenopathy. Well-opacified abdominal and pelvic vasculature with retroaortic left renal vein. No bowel obstruction or colitis or diverticulitis or enteritis. Underdistended transverse and left colon. CT PELVIS: Appendix is normal and best seen in the coronal plane. Pelvic bowel loops are unobstructed as well. Mildly thickened rectal wall. No inflammatory changes. Correlate for proctitis. Unremarkable urinary bladder. Patient is post hysterectomy. No free fluid or free air. No pelvic pathologic adenopathy. Woody bcutaneous tissues and the musculature are normal in appearance. No lytic or blastic lesions are noted within the bony skeleton. Sclerosis of the SI joints. PAGE 1 Signed Report (CONTINUED) Name: ANGELA ESPINOSA [facility] : 1975 Age/S: 43 / F [address] Unit #: [id number] Loc: [facility] [place] [address] Phys: Kye Pisano MD Acct: [id number] Dis Date: Status: REG ER PHONE #: [phone] Exam Date: 08/18/2019 1541 FAX #: [phone] Reason: RLQ pain EXAMS: CPT CODE: [id number] ABD PELVIS W/CONT 36419 <Continued> IMPRESSION: Normal appendix (seen best in the coronal plane). No bowel obstruction. Mild thickening of the rectal wall wit hout inflammation. Correlate for proctitis. Redundant left and sigmoid colon. No free fluid or free air or abscess. Diffuse fatty infiltration of the liver. No hydroureteronephrosis on either side with punctate 1 to 2 mm bilateral calyceal stones. at 1606 Reported and signed by: Shade Alcazar M.D. CC: Kye Pisano MD Technologist:RT Дмитрий(R),CT CTDI: DLP: Trnscb Date/Time: 08/18/2019 (8903) t.[email or web address] Orig Print D/T: S: 08/18/2019 (7582) PAGE 2 Signed Report BASIC METABOLIC [id number] 14:15:00* Test Item Value Reference Range Interpretation Comments SODIUM (test code = NA) 144 mmol/L 136-145 N POTASSIUM (test code = K) 3.1 mmol/L 3.5-5.1 L CHLORIDE (test code = CL) 109.0 mmol/L 98-107 H CARBON DIOXIDE (test code = CO2) 27.0 mmol/L 21-32 N ANION GAP (test code = GAP) 11.1 10-20 N GLUCOSE (test code = GLU) 109 mg/dL 74-106 H BLOOD UREA NITROGEN (test code = BUN) 5 mg/dL 7-18 L GLOMERULAR FILTRATION RATE (test code = GFR) > 60 mL/min >=60 Estimated GFR by using Modified MDRD formula.Chronic kidney disease is defined as either kidney damageor GFR <60 mL/min/1.73 m2 for >3 months. CREATININE (test code = CREAT) 0.80 mg/dL 0.55-1.02 N Note change in reference range due to change in reagent. BUN/CREATININE RATIO (test code = BUN/CREA) 6.3 10-20 L CALCIUM (test code = CA) 8.6 mg/dL 8.5-10.1 N HEPATIC FUNCTION [id number] 14:15:00* Test Item Value Reference Range Interpretation Comments TOTAL PROTEIN (test code = PROT) 6.4 gram/dL 6.4-8.2 N ALBUMIN (test code = ALB) 3.1 g/dL 3.4-5.0 L GLOBULIN (test code = GLOB) 3.3 gram/dL 2.7-4.2 N ALBUMIN/GLOBULIN RATIO (test code = A/G) 0.9 0.75-1.50 N BILIRUBIN TOTAL (test code = BILT) 0.70 mg/dL 0.0-1.0 N BILIRUBIN DIRECT (test code = BILD) 0.29 mg/dL 0.0-0.20 H SGOT/AST (test code = AST) 47 IUnit/L 15-37 H SGPT/ALT (test code = ALT) 58 IUnit/L 12-78 N ALKALINE PHOSPHATASE TOTAL (test code = ALKP) 79 IUnit/L 45-117 N Note change in reference range due to change in reagent. [id number] 14:15:00* Test Item Value Reference Range Interpretation Comments LIPASE (test code = LIP) 77 U/L 73.0-393.0 N HCG SERUM [id number] 14:15:00* Test Item Value Reference Range Interpretation Comments HCG SERUM QUAL (test code = HCGQL) NEGATIVE NEGATIVE This HCGQL test is NOT applicable for MALE patients.Check with nurse about probable order error.If Tumor Marker Test needed, nurse should order test "HCGTU"(Test #550.38840) [id number] 14:15:00* Test Item Value Reference Range Interpretation Comments TROPONIN-I (test code = TROPI) <0.015 ng/mL 0-0.045 N LACTIC [id number] 13:43:00* Test Item Value Reference Range Interpretation Comments LACTIC ACID (test code = LACT) 2.4 mmol/L 0.4-1.9 HH Results called to [id number] by [email or web address] 08/18/19 1342Critical results verified and read back by Nurse? YES BASIC METABOLIC [id number] 13:27:00* Test Item Value Reference Range Interpretation Comments SODIUM (test code = NA) 144 mmol/L 136-145 N POTASSIUM (test code = K) 3.1 mmol/L 3.5-5.1 L CHLORIDE (test code = CL) 109.0 mmol/L 98-107 H CARBON DIOXIDE (test code = CO2) 27.0 mmol/L 21-32 N ANION GAP (test code = GAP) 11.1 10-20 N GLUCOSE (test code = GLU) 109 mg/dL 74-106 H BLOOD UREA NITROGEN (test code = BUN) 5 mg/dL 7-18 L GLOMERULAR FILTRATION RATE (test code = GFR) > 60 mL/min >=60 Estimated GFR by using Modified MDRD formula.Chronic kidney disease is defined as either kidney damageor GFR <60 mL/min/1.73 m2 for >3 months. CREATININE (test code = CREAT) 0.80 mg/dL 0.55-1.02 N Note change in reference range due to change in reagent. BUN/CREATININE RATIO (test code = BUN/CREA) 6.3 10-20 L CALCIUM (test code = CA) 8.6 mg/dL 8.5-10.1 N HEPATIC FUNCTION [id number] 13:27:00* Test Item Value Reference Range Interpretation Comments TOTAL PROTEIN (test code = PROT) 6.4 gram/dL 6.4-8.2 N ALBUMIN (test code = ALB) 3.1 g/dL 3.4-5.0 L GLOBULIN (test code = GLOB) 3.3 gram/dL 2.7-4.2 N ALBUMIN/GLOBULIN RATIO (test code = A/G) 0.9 0.75-1.50 N BILIRUBIN TOTAL (test code = BILT) 0.70 mg/dL 0.0-1.0 N BILIRUBIN DIRECT (test code = BILD) 0.29 mg/dL 0.0-0.20 H SGOT/AST (test code = AST) 47 IUnit/L 15-37 H SGPT/ALT (test code = ALT) 58 IUnit/L 12-78 N ALKALINE PHOSPHATASE TOTAL (test code = ALKP) 79 IUnit/L 45-117 N Note change in reference range due to change in reagent. [id number] 13:27:00* Test Item Value Reference Range Interpretation Comments LIPASE (test code = LIP) 77 U/L 73.0-393.0 N HCG SERUM [id number] 13:27:00* Test Item Value Reference Range Interpretation Comments HCG SERUM QUAL (test code = HCGQL) NEGATIVE [id number] 13:27:00* Test Item Value Reference Range Interpretation Comments TROPONIN-I (test code = TROPI) <0.015 ng/mL 0-0.045 N CBC W/O [id number] 12:59:00* Test Item Value Reference Range Interpretation Comments WHITE BLOOD CELL (test code = WBC) 6.7 K/mm3 4.5-12.5 N RED BLOOD CELL (test code = RBC) 4.31 mill/mm3 3.7-5.2 N HEMOGLOBIN (test code = HGB) 12.6 gram/dL 11.5-15.5 N HEMATOCRIT (test code = HCT) 36.5 % 36.0-46.0 N MEAN CELL VOLUME (test code = MCV) 84.7 fL 80-98 N MEAN CELL HGB (test code = MCH) 29.2 picogram 27.0-33.0 N MEAN CELL HGB CONCETRATION (test code = MCHC) 34.5 gram/dL 33.0-36. 0 N RED CELL DISTRIBUTION WIDTH (test code = RDW) 15.9 % 11.6-16. 2 N PLATELET COUNT (test code = PLT) 170 K/mm3 150-450 N MEAN PLATELET VOLUME (test code = MPV) 9.3 fL 6.7-11.0 N CBC W/O [id number] 12:57:00* Test Item Value Reference Range Interpretation Comments WHITE BLOOD CELL (test code = WBC) K/mm3 4.5-12.5 RED BLOOD CELL (test code = RBC) mill/mm3 3.7-5.2 HEMOGLOBIN (test code = HGB) 12.6 gram/dL 11.5-15.5 N HEMATOCRIT (test code = HCT) 36.5 % 36.0-46.0 N MEAN CELL VOLUME (test code = MCV) fL 80-98 MEAN CELL HGB (test code = MCH) picogram 27.0-33.0 MEAN CELL HGB CONCETRATION (test code = MCHC) gram/dL 33.0-36. 0 RED CELL DISTRIBUTION WIDTH (test code = RDW) % 11.6-16. 2 PLATELET COUNT (test code = PLT) K/mm3 150-450 MEAN PLATELET VOLUME (test code = MPV) fL 6.7-11.0 URINALYSIS [id number] 12:56:00* Test Item Value Reference Range Interpretation Comments UA COLOR (test code = COLU) YELLOW YELLOW UA APPEARANCE (test code = APPU) Cloudy CLEAR A UA GLUCOSE DIPSTICK (test code = DGLUU) NEGATIVE mg/dL NEGATIVE UA BILIRUBIN DIPSTICK (test code = BILU) NEGATIVE mg/dL NEGATIVE UA KETONE DIPSTICK (test code = KETU) 80 (3+) mg/dL NEGATIVE A UA SPECIFIC GRAVITY (test code = SGU) 1.019 1.001-1.035 UA BLOOD DIPSTICK (test code = MAT) 0.1 mg/dL (1+) mg/dL NEGATIVE A UA PH DIPSTICK (test code = CHARISMA) 6.5 5.0-8.0 UA PROTEIN DIPSTICK (test code = PROU) 30 (1+) mg/dL NEGATIVE A UA UROBILINIOGEN DIPSTICK (test code = URO) 2.0 (1+) mg/dL NEGATIVE A UA NITRITE DIPSTICK (test code = MANDI) POSITIVE NEGATIVE A UA LEUKOCYTE ESTERASE W REFLEX (test code = LEUUR) 75 Rah/uL (1+) Rah/uL NEGATIVE A UA WBC (test code = WBCU) 11-20 per HPF 0-5 A UA RBC (test code = RBCU) 21-50 #/HPF 0-5 UA EPITHELIAL CELLS (test code = EPIU) FEW per HPF FEW UA BACTERIA (test code = BACU) FEW #/HPF NONE A UA MUCUS (test code = MUCU) FEW #/LPF FEW Urine Source? Clean CatchB-TYPE NATRIURETIC [id number] 09:04:00* Test Item Value Reference Range Interpretation Comments B-TYPE NATRIURETIC PEPTIDE (test code = BNP) 22.48 pgram/mL 0-100 N BASIC METABOLIC [id number] 08:33:00* Test Item Value Reference Range Interpretation Comments SODIUM (test code = NA) 140 mmol/L 136-145 N POTASSIUM (test code = K) 3.4 mmol/L 3.5-5.1 L CHLORIDE (test code = CL) 106.0 mmol/L 98-107 N CARBON DIOXIDE (test code = CO2) 25.0 mmol/L 21-32 N ANION GAP (test code = GAP) 12.4 10-20 N GLUCOSE (test code = GLU) 132 mg/dL 74-106 H BLOOD UREA NITROGEN (test code = BUN) 8 mg/dL 7-18 N GLOMERULAR FILTRATION RATE (test code = GFR) > 60 mL/min >=60 Estimated GFR by using Modified MDRD formula.Chronic kidney disease is defined as either kidney damageor GFR <60 mL/min/1.73 m2 for >3 months. CREATININE (test code = CREAT) 0.80 mg/dL 0.55-1.02 N Note change in reference range due to change in reagent. BUN/CREATININE RATIO (test code = BUN/CREA) 10.0 10-20 N CALCIUM (test code = CA) 8.5 mg/dL 8.5-10.1 N HEPATIC FUNCTION [id number] 08:33:00* Test Item Value Reference Range Interpretation Comments TOTAL PROTEIN (test code = PROT) 6.4 gram/dL 6.4-8.2 N ALBUMIN (test code = ALB) 3.0 g/dL 3.4-5.0 L GLOBULIN (test code = GLOB) 3.4 gram/dL 2.7-4.2 N ALBUMIN/GLOBULIN RATIO (test code = A/G) 0.9 0.75-1.50 N BILIRUBIN TOTAL (test code = BILT) 0.70 mg/dL 0.0-1.0 N BILIRUBIN DIRECT (test code = BILD) 0.28 mg/dL 0.0-0.20 H SGOT/AST (test code = AST) 51 IUnit/L 15-37 H SGPT/ALT (test code = ALT) 63 IUnit/L 12-78 N ALKALINE PHOSPHATASE TOTAL (test code = ALKP) 95 IUnit/L 45-117 N Note change in reference range due to change in reagent. [id number] 08:33:00* Test Item Value Reference Range Interpretation Comments LIPASE (test code = LIP) 148 U/L 73.0-393.0 N HCG SERUM [id number] 08:33:00* Test Item Value Reference Range Interpretation Comments HCG SERUM QUAL (test code = HCGQL) NEGATIVE NEGATIVE This HCGQL test is NOT applicable for MALE patients.Check with nurse about probable order error.If Tumor Marker Test needed, nurse should order test "HCGTU"(Test #550.29835) [id number] 08:33:00* Test Item Value Reference Range Interpretation Comments TROPONIN-I (test code = TROPI) <0.015 ng/mL 0-0.045 N BASIC METABOLIC [id number] 08:30:00* Test Item Value Reference Range Interpretation Comments SODIUM (test code = NA) 140 mmol/L 136-145 N POTASSIUM (test code = K) 3.4 mmol/L 3.5-5.1 L CHLORIDE (test code = CL) 106.0 mmol/L 98-107 N CARBON DIOXIDE (test code = CO2) mmol/L 21-32 ANION GAP (test code = GAP) 10-20 GLUCOSE (test code = GLU) mg/dL 74-106 BLOOD UREA NITROGEN (test code = BUN) mg/dL 7-18 GLOMERULAR FILTRATION RATE (test code = GFR) mL/min >=60 CREATININE (test code = CREAT) mg/dL 0.55-1.02 BUN/CREATININE RATIO (test code = BUN/CREA) 10-20 CALCIUM (test code = CA) mg/dL 8.5-10.1 HEPATIC FUNCTION [id number] 08:30:00* Test Item Value Reference Range Interpretation Comments TOTAL PROTEIN (test code = PROT) gram/dL 6.4-8.2 ALBUMIN (test code = ALB) g/dL 3.4-5.0 GLOBULIN (test code = GLOB) gram/dL 2.7-4.2 ALBUMIN/GLOBULIN RATIO (test code = A/G) 0.75-1.50 BILIRUBIN TOTAL (test code = BILT) mg/dL 0.0-1.0 BILIRUBIN DIRECT (test code = BILD) mg/dL 0.0-0.20 SGOT/AST (test code = AST) IUnit/L 15-37 SGPT/ALT (test code = ALT) IUnit/L 12-78 ALKALINE PHOSPHATASE TOTAL (test code = ALKP) IUnit/L 45-117 [id number] 08:30:00* Test Item Value Reference Range Interpretation Comments LIPASE (test code = LIP) U/L 73.0-393.0 HCG SERUM [id number] 08:30:00* Test Item Value Reference Range Interpretation Comments HCG SERUM QUAL (test code = HCGQL) NEGATIVE NEGATIVE This HCGQL test is NOT applicable for MALE patients.Check with nurse about probable order error.If Tumor Marker Test needed, nurse should order test "HCGTU"(Test #550.06950) [id number] 08:30:00* Test Item Value Reference Range Interpretation Comments TROPONIN-I (test code = TROPI) ng/mL 0-0.045 BASIC METABOLIC [id number] 08:27:00* Test Item Value Reference Range Interpretation Comments SODIUM (test code = NA) mmol/L 136-145 POTASSIUM (test code = K) mmol/L 3.5-5.1 CHLORIDE (test code = CL) mmol/L 98-107 CARBON DIOXIDE (test code = CO2) mmol/L 21-32 ANION GAP (test code = GAP) 10-20 GLUCOSE (test code = GLU) mg/dL 74-106 BLOOD UREA NITROGEN (test code = BUN) mg/dL 7-18 GLOMERULAR FILTRATION RATE (test code = GFR) mL/min >=60 CREATININE (test code = CREAT) mg/dL 0.55-1.02 BUN/CREATININE RATIO (test code = BUN/CREA) 10-20 CALCIUM (test code = CA) mg/dL 8.5-10.1 HEPATIC FUNCTION [id number] 08:27:00* Test Item Value Reference Range Interpretation Comments TOTAL PROTEIN (test code = PROT) gram/dL 6.4-8.2 ALBUMIN (test code = ALB) g/dL 3.4-5.0 GLOBULIN (test code = GLOB) gram/dL 2.7-4.2 ALBUMIN/GLOBULIN RATIO (test code = A/G) 0.75-1.50 BILIRUBIN TOTAL (test code = BILT) mg/dL 0.0-1.0 BILIRUBIN DIRECT (test code = BILD) mg/dL 0.0-0.20 SGOT/AST (test code = AST) IUnit/L 15-37 SGPT/ALT (test code = ALT) IUnit/L 12-78 ALKALINE PHOSPHATASE TOTAL (test code = ALKP) IUnit/L 45-117 [id number] 08:27:00* Test Item Value Reference Range Interpretation Comments LIPASE (test code = LIP) U/L 73.0-393.0 HCG SERUM [id number] 08:27:00* Test Item Value Reference Range Interpretation Comments HCG SERUM QUAL (test code = HCGQL) NEGATIVE NEGATIVE This HCGQL test is NOT applicable for MALE patients.Check with nurse about probable order error.If Tumor Marker Test needed, nurse should order test "HCGTU"(Test #550.70659) [id number] 08:27:00* Test Item Value Reference Range Interpretation Comments TROPONIN-I (test code = TROPI) ng/mL 0-0.045 CBC W/O [id number] 07:47:00* Test Item Value Reference Range Interpretation Comments WHITE BLOOD CELL (test code = WBC) K/mm3 4.5-12.5 RED BLOOD CELL (test code = RBC) mill/mm3 3.7-5.2 HEMOGLOBIN (test code = HGB) 13.1 gram/dL 11.5-15.5 N HEMATOCRIT (test code = HCT) 38.1 % 36.0-46.0 N MEAN CELL VOLUME (test code = MCV) fL 80-98 MEAN CELL HGB (test code = MCH) picogram 27.0-33.0 MEAN CELL HGB CONCETRATION (test code = MCHC) gram/dL 33.0-36. 0 RED CELL DISTRIBUTION WIDTH (test code = RDW) % 11.6-16. 2 PLATELET COUNT (test code = PLT) K/mm3 150-450 MEAN PLATELET VOLUME (test code = MPV) fL 6.7-11.0 CBC W/O [id number] 07:47:00* Test Item Value Reference Range Interpretation Comments WHITE BLOOD CELL (test code = WBC) 9.3 K/mm3 4.5-12.5 N RED BLOOD CELL (test code = RBC) 4.45 mill/mm3 3.7-5.2 N HEMOGLOBIN (test code = HGB) 13.1 gram/dL 11.5-15.5 N HEMATOCRIT (test code = HCT) 38.1 % 36.0-46.0 N MEAN CELL VOLUME (test code = MCV) 85.6 fL 80-98 N MEAN CELL HGB (test code = MCH) 29.4 picogram 27.0-33.0 N MEAN CELL HGB CONCETRATION (test code = MCHC) 34.4 gram/dL 33.0-36. 0 N RED CELL DISTRIBUTION WIDTH (test code = RDW) 15.3 % 11.6-16. 2 N PLATELET COUNT (test code = PLT) 185 K/mm3 150-450 N MEAN PLATELET VOLUME (test code = MPV) 8.6 fL 6.7-11.0 N - XR CHEST 1 [id number] 07:46:00 FAX: India Bryson NP [place]: St: [facility] FAX: Jorge Figueroa NP [phone] Name: ANGELA ESPINOSA [facility] : 1975 Age/S: 43/F [address] [facility] Unit #: [id number] Loc: [place] [address] Phys: India Bryson NP Acct: [id number] Dis Date: Status: DEP ER PHONE #: [phone] Exam Date: 08/14/2019 0736 FAX #: [phone] Reason: Abdominal Pain EXAMS: CPT CODE: [id number] XR CHEST 1 V [id number] HISTORY: Abdominal Pain TECHNIQUE: AP chest x-ray COMPARISON: 08/01/19 FINDINGS: No airspace consolidation or pleural effusion. Normal heart size. Mediastinal silhouette is unremarkable. Visualized osseous structures are grossly intact. IMPRESSION: No radiographic evidence of acute c ardiopulmonary process. LOCATION: [facility] at 0746 Reported and signed by: Jacklyn De Leon D.O. CC: India Bryson NP; Jorge Butt NP Technologist: JENNA BOGGS(R) Trnscrd Date/Time/By: 08/14/19 20 (0746) : By: [email or web address] Orig Print D/T: S: 08/14/2019 (0749) PAGE 1 Signed Report - XR ABDOMEN AP 1 [id number] 07:46:00 FAX: India Bryson NP [place]: St: [facility] FAX: Jorge Figueroa NP [phone] Name: ANGELA ESPINOSA [facility] : 1975 Age/S: 43/F [address] Unit #: [id number] Loc: [place] [address] Phys: India Bryson RESEARCH CLERK Acct: [id number] Dis Date: Status: DEP ER PHONE #: [phone] Exam Date: 08/14/2019 0736 FAX #: [phone] Reason: vomiting EXAMS: CPT CODE: [id number] XR ABDOMEN AP 1 V [id number] HISTORY: vomiting TECHNIQUE: AP abdomen x-ray COMPARISON: CT 08/01/19 FINDINGS: Nonspecific nonobstructed bowel gas pattern. No intra-abdominal mass effect. Cholecystectomy clips. No abnormal calcifications are observed. Visualized osseous structures are intact. Degenerative changes of the sacroiliac joints. IMPRESSION: No radiographic evidence of acute intra-abdom inal process. LOCATION: [facility] at 0746 Reported and signed by: Jacklyn De Leon D.O. CC: India Bryson NP; Jorge Butt NP Technologist: JENNA BOGGS(R) Trnscrd Date/Time/By: 08/14/19 (0746) : By: [email or web address] Orig Print D/T: S: 08/14/2019 (0757) PAGE 1 Signed Report - XR CHEST 1 [id number] 07:46:00 FAX: India Bryson NP [place]: St: REG FAX: Jorge Figueroa NP [phone] Name: ANGELA ESPINOSA [facility] : 1975 Age/S: 43/F [address] [facility] Unit #: [id number] Loc: [place] [address] Phys: India Bryson NP Acct: [id number] Dis Date: Status: REG ER PHONE #: [phone] Exam Date: 08/14/2019 0764 FAX #: [phone] Reason: Abdominal Pain EXAMS: CPT CODE: [id number] XR CHEST 1 V 47862 HISTORY: Abdominal Pain TECHNIQUE: AP chest x-ray COMPARISON: 08/01/19 FINDINGS: No airspace consolidation or pleural effusion. Normal heart size. Mediastinal silhouette is unremarkable. Visualized osseous structures are grossly intact. IMPRESSION: No radiographic evidence of acute c ardiopulmonary process. LOCATION: LP at 0746 Reported and signed by: Jacklyn De Leon D.O. CC: India Bryson NP; Jorge Butt NP Technologist: JENNA BOGGS(R) Trnscrd Date/Time/By: 08/14/19 (0716) : By: [email or web address] Orig Print D/T: S: 08/14/2019 (0792) PAGE 1 Signed Report - XR ABDOMEN AP 1 [id number] 07:46:00 FAX: India Bryson NP [place]: St: [facility] FAX: Y Jorge Butt NP [phone] Name: ANGELA ESPINOSA [facility] : 1975 Age/S: 43/F [address] [facility] Unit #: [id number] Loc: [place] [address] Phys: India Bryson NP Acct: [id number] Dis Date: Status: REG ER PHONE #: [phone] Exam Date: 08/14/2019 0736 FAX #: [phone] Reason: vomiting EXAMS: CPT CODE: [id number] XR ABDOMEN AP 1 V 59178 HISTORY: vomiting TECHNIQUE: AP abdomen x-ray COMPARISON: CT 08/01/19 FINDINGS: Nonspecific nonobstructed bowel gas pattern. No intra-abdominal mass effect. Cholecystectomy clips. No abnormal calcifications are observed. Visualized osseous structures are intact. Degenerative changes of the sacroiliac joints. IMPRESSION: No radiographic evidence of acute intra-abdom inal process. LOCATION: [facility] at 0746 Reported and signed by: Jacklyn De Leon D.O. CC: India Bryson NP; Jorge Butt NP Technologist: JENNA BOYLE RT(R) Trnscrd Date/Time/By: 08/14/19 20 (0746) : By: [email or web address] Orig Print D/T: S: 08/14/2019 (0756) PAGE 1 Signed Report URINALYSIS [id number] 07:16:00* Test Item Value Reference Range Interpretation Comments UA COLOR (test code = COLU) Light-Yellow YELLOW UA APPEARANCE (test code = APPU) Cloudy CLEAR A UA GLUCOSE DIPSTICK (test code = DGLUU) NEGATIVE mg/dL NEGATIVE UA BILIRUBIN DIPSTICK (test code = BILU) NEGATIVE mg/dL NEGATIVE UA KETONE DIPSTICK (test code = KETU) NEGATIVE mg/dL NEGATIVE UA SPECIFIC GRAVITY (test code = SGU) 1.011 1.001-1.035 UA BLOOD DIPSTICK (test code = MAT) Negative mg/dL NEGATIVE UA PH DIPSTICK (test code = CHARISMA) 7.0 5.0-8.0 UA PROTEIN DIPSTICK (test code = PROU) NEGATIVE mg/dL NEGATIVE UA UROBILINIOGEN DIPSTICK (test code = URO) Normal mg/dL NEGATIVE UA NITRITE DIPSTICK (test code = MANDI) NEGATIVE NEGATIVE UA LEUKOCYTE ESTERASE W REFLEX (test code = LEUUR) 500 Rah/u L (3+) Rah/uL NEGATIVE A UA WBC (test code = WBCU) 101-150 per HPF 0-5 A UA RBC (test code = RBCU) 0-2 #/HPF 0-5 UA EPITHELIAL CELLS (test code = EPIU) MOD per HPF FEW UA BACTERIA (test code = BACU) FEW #/HPF NONE A UA MUCUS (test code = MUCU) FEW #/LPF FEW Urine Source? Clean CatchCOMPREHENSIVE METABOLIC [id number] 08:46:00* Test Item Value Reference Range Interpretation Comments SODIUM (test code = NA) 141 mmol/L 136-145 N POTASSIUM (test code = K) 3.4 mmol/L 3.5-5.1 L CHLORIDE (test code = CL) 111.0 mmol/L 98-107 H CARBON DIOXIDE (test code = CO2) 22.0 mmol/L 21-32 N ANION GAP (test code = GAP) 11.4 10-20 N GLUCOSE (test code = GLU) 106 mg/dL 74-106 N BLOOD UREA NITROGEN (test code = BUN) 6 mg/dL 7-18 L GLOMERULAR FILTRATION RATE (test code = GFR) > 60 mL/min >=60 Estimated GFR by using Modified MDRD formula.Chronic kidney disease is defined as either kidney damageor GFR <60 mL/min/1.73 m2 for >3 months. CREATININE (test code = CREAT) 0.60 mg/dL 0.55-1.02 N Note change in reference range due to change in reagent. BUN/CREATININE RATIO (test code = BUN/CREA) 10.0 10-20 N TOTAL PROTEIN (test code = PROT) 5.7 gram/dL 6.4-8.2 L ALBUMIN (test code = ALB) 2.9 g/dL 3.4-5.0 L GLOBULIN (test code = GLOB) 2.8 gram/dL 2.7-4.2 N ALBUMIN/GLOBULIN RATIO (test code = A/G) 1.0 0.75-1.50 N CALCIUM (test code = CA) 7.9 mg/dL 8.5-10.1 L BILIRUBIN TOTAL (test code = BILT) 0.60 mg/dL 0.0-1.0 N SGOT/AST (test code = AST) 69 IUnit/L 15-37 H SGPT/ALT (test code = ALT) 89 IUnit/L 12-78 H ALKALINE PHOSPHATASE TOTAL (test code = ALKP) 105 IUnit/L 45-117 N Note change in reference range due to change in reagent. COMPREHENSIVE METABOLIC [id number] 08:39:00* Test Item Value Reference Range Interpretation Comments SODIUM (test code = NA) 141 mmol/L 136-145 N POTASSIUM (test code = K) 3.4 mmol/L 3.5-5.1 L CHLORIDE (test code = CL) 111.0 mmol/L 98-107 H CARBON DIOXIDE (test code = CO2) mmol/L 21-32 ANION GAP (test code = GAP) 10-20 GLUCOSE (test code = GLU) mg/dL 74-106 BLOOD UREA NITROGEN (test code = BUN) mg/dL 7-18 GLOMERULAR FILTRATION RATE (test code = GFR) mL/min >=60 CREATININE (test code = CREAT) mg/dL 0.55-1.02 BUN/CREATININE RATIO (test code = BUN/CREA) 10-20 TOTAL PROTEIN (test code = PROT) gram/dL 6.4-8.2 ALBUMIN (test code = ALB) g/dL 3.4-5.0 GLOBULIN (test code = GLOB) gram/dL 2.7-4.2 ALBUMIN/GLOBULIN RATIO (test code = A/G) 0.75-1.50 CALCIUM (test code = CA) mg/dL 8.5-10.1 BILIRUBIN TOTAL (test code = BILT) mg/dL 0.0-1.0 SGOT/AST (test code = AST) IUnit/L 15-37 SGPT/ALT (test code = ALT) IUnit/L 12-78 ALKALINE PHOSPHATASE TOTAL (test code = ALKP) IUnit/L 45-117 CBC W/AUTO [id number] 08:31:00* Test Item Value Reference Range Interpretation Comments WHITE BLOOD CELL (test code = WBC) 6.5 K/mm3 4.5-12.5 N RED BLOOD CELL (test code = RBC) 4.13 mill/mm3 3.7-5.2 N HEMOGLOBIN (test code = HGB) 12.2 gram/dL 11.5-15.5 N HEMATOCRIT (test code = HCT) 35.6 % 36.0-46.0 L MEAN CELL VOLUME (test code = MCV) 86.2 fL 80-98 N MEAN CELL HGB (test code = MCH) 29.5 picogram 27.0-33.0 N MEAN CELL HGB CONCETRATION (test code = MCHC) 34.3 gram/dL 33.0-36. 0 N RED CELL DISTRIBUTION WIDTH (test code = RDW) 14.6 % 11.6-16. 2 N RED CELL DISTRIBUTION WIDTH SD (test code = RDW-SD) 45.7 fL 37 .0-51.0 N PLATELET COUNT (test code = PLT) 242 K/mm3 150-450 MEAN PLATELET VOLUME (test code = MPV) 9.4 fL 6.7-11.0 N NEUTROPHIL % (test code = NT%) 74.4 % 39.0-69.0 H IMMATURE GRANULOCYTE % (test code = IG%) 0.3 % 0.0-5.0 N LYMPHOCYTE % (test code = LY%) 16.8 % 25.0-55.0 L MONOCYTE % (test code = MO%) 6.8 % 0.0-10.0 N EOSINOPHIL % (test code = EO%) 1.2 % 0.0-5.0 N BASOPHIL % (test code = BA%) 0.5 % 0.0-1.0 N NUCLEATED RBC % (test code = NRBC%) 0.0 % 0-0 N NEUTROPHIL # (test code = NT#) 4.84 K/mm3 1.8-7.7 N IMMATURE GRANULOCYTE # (test code = IG#) 0.02 x10 3/uL 0-0.03 N LYMPHOCYTE # (test code = LY#) 1.09 K/mm3 1.0-5.0 N MONOCYTE # (test code = MO#) 0.44 K/mm3 0-0.8 N EOSINOPHIL # (test code = EO#) 0.08 K/mm3 0.0-0.5 N BASOPHIL # (test code = BA#) 0.03 K/mm3 0.0-0.2 N NUCLEATED RBC # (test code = NRBC#) 0.00 K/mm3 0.0-0.1 N MANUAL DIFF REQUIRED (test code = MDIFF) NO LIPID PROFILE (CORONARY RISK)2019-08-01 23:12:00* Test Item Value Reference Range Interpretation Comments TRIGLYCERIDES (test code = TRIG) 311 mg/dL 20-150 H CHOLESTEROL (test code = CHOL) 207 mg/dL 0-200 H CHOLESTEROL/HDL RATIO (test code = CHOLHDL) 5.0 RATIO 0-4.9 H RISK ASSOCIATED WITH CHOL/HDL RATIOS: Risk Male Female1/2 AVERAGE 3.43 3.27AVERAGE 4.97 4.442X AVERAGE 9.55 7.053X AVERAGE 23.39 11.04 REFERENCE VALUE IS RELATED TO RISK LEVELS ASRECOMMENDED BY THE MAGDALENE. HEART, LUNG, AND BLOOD INST. HDL CHOLESTEROL (test code = HDL) 40 mg/dL 40-60 N LIPOPROTEIN LDL (test code = LDL) 134 mg/dL 100-129 H RN PERSONNEL, CONTACT PHYSICIAN IMMEDIATELY IF THIS IS A STROKE, AMI OR CAROTID STENOSIS PATIENT WHEN THE LDL >100 (1ST OCCURENCE, THIS ADMISSION) Reference Interval: mg/dL mmol/L Optimal <100 <2.6Near/above optimal 100-129 2.6- 3.3Borderline High 130-159 3.4-4.1High 160-189 4.1-4.9Very High >=190 >=4.9========= This LDL result is a direct measurement.========= THYROID STIMULATING [id number] 23:12:00* Test Item Value Reference Range Interpretation Comments THYROID STIMULATING HORMONE (test code = TSH) 4.640 uIU/mL 0.36-3.7 4 H TSH REFERENCE RANGES: EUTHYROID: 0.35 - 4.3 mIU/mL HYPO : > 5.5 mIU/mL HYPER : < 0.35 mIU/mL [id number] 23:09:00* Test Item Value Reference Range Interpretation Comments GLYCOSYLATED HEMOGLOBIN (HA1C) (test code = GLYHGB) 5.3 % HbA1 SUGGESTED DIAGNOSIS: HbA1C (%) Diabetic >6.4Prediabetes 5.7 - 6.4Normal <5.7 ESTIMATED AVERAGE GLUCOSE (test code = EAG) 105 MG/DL [id number] 20:42:00* Test Item Value Reference Range Interpretation Comments TROPONIN-I (test code = TROPI) <0.015 ng/mL 0-0.045 N COMMENTS TO COMMERCIAL PAINTER: COLLECT 3 HOURS AFTER PREVIOUS [id number] 16:52:00* Test Item Value Reference Range Interpretation Comments TROPONIN-I (test code = TROPI) <0.015 ng/mL 0-0.045 N COMMENTS TO COMMERCIAL PAINTER: COLLECT 3 HOURS AFTER PREVIOUS SAMPLE- CT ABD PELVIS [id number] 13:49:00 Name: ANGELA ESPINOSA [facility] : 1975 Age/S: 43 / F [address] #: [id number] Loc: [place] [address] Phys: Kye Pisano MD Acct: [id number] Dis Date: 08/02/2019 Status: DIS IN PHONE #: [phone] Exam Date: 08/01/2019 1317 FAX #: [phone] Reason: epigastric pain EXAMS: CPT CODE: [id number] CT ABD PELVIS W/CONT 58512 REASON FOR EXAM: cp rad back EXAM ORDER DATE: 08/01/2019 12:52 PM Ordering M.D.: Kye Pisano MD PROCEDURE: - CTA CHEST , - CT ABD PELVIS W/CONT contrast-enhanced axial CT images were acquired through the chest/abdomen/pelvis. Sagittal and coronal reformatted images were generated. Automated exposure control was utilized for this reduction. Phases of contrast: Aortic and delayed COMPARISON: Chest x-ray earlier today FINDINGS: Visualized neck: Normal Airways, Lungs and Pleura: There is subsegmental atelectasis in the dependent lower lobes. There is also mild subsegmental atelectasis in the middle lobe Heart, great vessels, pulmonary vessels, mediastinum: Normal Thoracic Lymph nodes: No axillary, internal mammary, hilar, or mediastinal adenopathy. Hepatobiliary system: Hepatomegaly with hepatic steatosis. Prior cholecystectomy Pancreas: Normal Spleen: Normal Adrenal glands: Normal Genitourinary system: There is cortical scarring in the superior pole of the left kidney. There are also nonobstructing punctate stones in the m idpole of the left kidney (601/113). Simple appearing cyst is present in t he right ovary. Hysterectomy Gastrointestinal tract and appendix: Moderate to heavy colonic stool burden. Stomach and small bowel are within normal limits PAGE 1 Signed Report (CONTINUED) Name: ANGELA ESPINOSA [facility] : 1975 Age/S: 43 / F [address] #: [id number] Loc: [place] [address] Phys: Kye Pisano MD Acct: [id number] Dis Date: 08/02/2019 Status: DIS IN PHONE #: [phone] Exam Date: 08/01/2019 1317 FAX #: [phone] Reason: epigastric pain EXAMS: CPT CODE: [id number] ABD PELVIS W/CONT 07659 < Continued> Abdominal vascular structures: Retroaortic left renal vein Peritoneum and retroperitoneum: No free fluid or free air. No omental or mesenteric masses. No abnormal lymph nodes. Musculoskeletal structures, chest wall, and abdominal wall: Normal IMPRESSION: Hepatomegaly with hepatic steatosis. Nonobstructing stone in the midpole of the left kidney. No inflammatory changes are seen in the left kidney. Location: [facility] at 1349 Reported and signed by: Sanjay Roman MD CC: Kye Pisano MD Technologist:Lupillo Forrest RT(R)(CT) CTDI: DLP: Trnscb Date/Time: 08/01/2019 (1349) [email or web address] Orig Print D/T: S: 08/01/2019 (5943) PAGE 2 Signed Report - CTA CHEST 2019-08-01 13:49:00 Name: ANGELA ESPINOSA [facility] : 1975 Age/S: 43 / F [address] [facility] Unit #: [id number] Loc: [place] [address] Phys: Kye Pisano MD Acct: [id number] Dis Date: 08/02/2019 Status: DIS IN PHONE #: [phone] Exam Date: 08/01/2019 1317 FAX #: [phone] Reason: cp rad back EXAMS: CPT CODE: [id number] CTA CHEST 17744 REASON FOR EXAM: cp rad back EXAM ORDER DATE: 08/01/2019 12:52 PM Ordering M.DSilva: Kye Pisano MD PROCEDURE: - CTA CHEST , - CT ABD PELVIS W/CONT contrast-enhanced axial CT images were acquired through the chest/abdomen/pelvis. Sagittal and coronal reformatted images were generated. Automated exposure control was utilized for this reduction. Phases of contrast: Aortic and delayed COMPARISON: Chest x-ray earlier today FINDINGS: Visualized neck: Normal Airways, Lungs and Pleura: There is subsegmental atelectasis in the dependent lower lobes. There is also mild subsegmental atelectasis in the middle lobe Heart, great vessels, pulmonary vessels, mediastinum: Normal Thoracic Lymph nodes: No axillary, internal mammary, hilar, or mediastinal adenopathy. Hepatobiliary system: Hepatomegaly with hepatic steatosis. Prior cholecystectomy Pancreas: Normal Spleen: Normal Adrenal glands: Normal Genitourinary system: There is cortical scarring in the superior pole of the left kidney. There are also nonobstructing punctate stones in the midpole of the left kidney (601/113). Simple appearing cyst is present in the right ovary. Hysterectomy Gastrointestinal tract and appendix: Moderate to heavy colonic stool burden. Stomach and small bowel are within normal limits PAGE 1 Signed Report (CONTINUED) Name: ANGELA ESPINOSA [facility] : 1975 Age/S: 43 / F [address] [facility] Unit #: [id number] Loc: [place] [address] Phys: Kye Pisano MD Acct: [id number] Dis Date: 08/02/2019 Status: DIS IN PHONE #: [phone] Exam Date: 08/01/2019 1317 FAX #: [phone] Reason: cp rad back EXAMS: CPT CODE: 0 [id number] CTA CHEST 74014 < Continued> Abdominal vascular structures: Retroaortic left renal vein Peritoneum and retroperitoneum: No free fluid or free air. No omental or mesenteric masses. No abnormal lymph nodes. Musculoskeletal structures, chest wall, and abdominal wall: Normal IMPRESSION: Hepatomegaly with hepatic steatosis. Nonobstructing stone in the midpole of the left kidney. No inflammatory changes are seen in the left kidney. Location: [facility] at 1349 Reported and signed by: Sanjay Roman MD CC: Kye Pisano MD Technologist:Lupillo Forrest RT(R)(CT) CTDI: DLP: Trnscb Date/Time: 08/01/2019 (1349) [email or web address] Orig Print D/T: S: 08/01/2019 (3794) PAGE 2 Signed Report - CT ABD PELVIS [id number] 13:49:00 Name: ANGELA ESPINOSA [facility] : 1975 Age/S: 43 / F [address] Unit #: [id number] Loc: [place] [address] Phys: Kye Pisano MD Acct: [id number] Dis Date: Status: ADM IN PHONE #: [phone] Exam Date: 08/01/2019 1317 FAX #: [phone] Reason: epigastric pain EXAMS: CPT CODE: [id number] CT ABD PELVIS W/CONT 52836 REASON FOR EXAM: cp rad back EXAM ORDER DATE: 08/01/2019 12:52 PM Ordering M.D.: Kye Pisano MD PROCEDURE: - CTA CHEST , - CT ABD PELVIS W/CONT contrast-enhanced axial CT images were acquired through the chest/abdomen/pelvis. Sagittal and coronal reformatted images were generated. Automated exposure control was utilized for this reduction. Phases of contrast: Aortic and delayed COMPARISON: Chest x-ray earlier today FINDINGS: Visualized neck: Normal Airways, Lungs and Pleura: There is subsegmental atelectasis in the dependent lower lobes. There is also mild subsegmental atelectasis in the middle lobe Heart, great vessels, pulmonary vessels, mediastinum: Normal Thoracic Lymph nodes: No axillary, internal mammary, hilar, or mediastinal adenopathy. Hepatobiliary system: Hepatomegaly with hepatic steatosis. Prior cholecystectomy Pancreas: Normal Spleen: Normal Adrenal glands: Normal Genitourinary system: There is cortical scarring in the superior pole of the left kidney. There are also nonobstructing punctate stones in the m idpole of the left kidney (601/113). Simple appearing cyst is present in t he right ovary. Hysterectomy Gastrointestinal tract and appendix: Moderate to heavy colonic stool burden. Stomach and small bowel are within normal limits PAGE 1 Signed Report (CONTINUED) Name: ANGELA ESPINOSA [facility] : 1975 Age/S: 43 / F [address] #: [id number] Loc: [place] [address] Phys: Kye Pisano MD Acct: [id number] Dis Date: Status: ADM IN PHONE #: [phone] Exam Date: 08/01/20197 FAX #: [phone] Reason: epigastric pain EXAMS: CPT CODE: [id number] ABD PELVIS W/CONT 24774 < Continued> Abdominal vascular structures: Retroaortic left renal vein Peritoneum and retroperitoneum: No free fluid or free air. No omental or mesenteric masses. No abnormal lymph nodes. Musculoskeletal structures, chest wall, and abdominal wall: Normal IMPRESSION: Hepatomegaly with hepatic steatosis. Nonobstructing stone in the midpole of the left kidney. No inflammatory changes are seen in the left kidney. Location: [facility] at 1349 Reported and signed by: Sanjay Roman MD CC: Kye Pisano MD Technologist:Lupillo Forrest RT(R)(CT) CTDI: DLP: Trnscb Date/Time: 08/01/2019 (1168) [email or web address] Orig Print D/T: S: 08/01/2019 (8996) PAGE 2 Signed Report - CTA CHEST 2019-08-01 13:49:00 Name: ANGELA ESPINOSA [facility] : 1975 Age/S: 43 / F [address] [facility] Unit #: [id number] [place]: [place] [address] Phys: Kye Pisano MD Acct: [id number] Dis Date: Status: ADM IN PHONE #: [phone] Exam Date: 08/01/20197 FAX #: [phone] Reason: cp rad back EXAMS: CPT CODE: [id number] CTA CHEST 31330 REASON FOR EXAM: cp rad back EXAM ORDER DATE: 08/01/2019 12:52 PM Ordering M.D.: Kye Pisano MD PROCEDURE: - CTA CHEST , - CT ABD PELVIS W/CONT contrast-enhanced axial CT images were acquired through the chest/abdomen/pelvis. Sagittal and coronal reformatted images were generated. Automated exposure control was utilized for this reduction. Phases of contrast: Aortic and delayed COMPARISON: Chest x-ray earlier today FINDINGS: Visualized neck: Normal Airways, Lungs and Pleura: There is subsegmental atelectasis in the dependent lower lobes. There is also mild subsegmental atelectasis in the middle lobe Heart, great vessels, pulmonary vessels, mediastinum: Normal Thoracic Lymph nodes: No axillary, internal mammary, hilar, or mediastinal adenopathy. Hepatobiliary system: Hepatomegaly with hepatic steatosis. Prior cholecystectomy Pancreas: Normal Spleen: Normal Adrenal glands: Normal Genitourinary system: There is cortical scarring in the superior pole of the left kidney. There are also nonobstructing punctate stones in the midpole of the left kidney (601/113). Simple appearing cyst is present in the right ovary. Hysterectomy Gastrointestinal tract and appendix: Moderate to heavy colonic stool burden. Stomach and small bowel are within normal limits PAGE 1 Signed Report (CONTINUED) Name: ANGELA ESPINOSA [facility] : 1975 Age/S: 43 / F [address] [facility] [address] Unit #: [id number] Loc: [place] [address] Phys: Kye Pisano MD Acct: [id number] Dis Date: Status: ADM IN PHONE #: [phone] Exam Date: 08/01/2019 1317 FAX #: [phone] Reason: cp rad back EXAMS: CPT CODE: 0 [id number] CTA CHEST 93897 < Continued> Abdominal vascular structures: Retroaortic left renal vein Peritoneum and retroperitoneum: No free fluid or free air. No omental or mesenteric masses. No abnormal lymph nodes. Musculoskeletal structures, chest wall, and abdominal wall: Normal IMPRESSION: Hepatomegaly with hepatic steatosis. Nonobstructing stone in the midpole of the left kidney. No inflammatory changes are seen in the left kidney. Location: [facility] at 1349 Reported and signed by: Sanjay Roman MD CC: Kye Pisano MD Technologist:Lupillo Forrest RT(R)(CT) CTDI: DLP: Trnscb Date/Time: 08/01/2019 (1349) [email or web address] Orig Print D/T: S: 08/01/2019 (4224) PAGE 2 Signed Report HEPATIC FUNCTION [id number] 12:32:00* Test Item Value Reference Range Interpretation Comments TOTAL PROTEIN (test code = PROT) 7.1 gram/dL 6.4-8.2 N ALBUMIN (test code = ALB) 3.4 g/dL 3.4-5.0 N GLOBULIN (test code = GLOB) 3.7 gram/dL 2.7-4.2 N ALBUMIN/GLOBULIN RATIO (test code = A/G) 0.9 0.75-1.50 N BILIRUBIN TOTAL (test code = BILT) 0.40 mg/dL 0.0-1.0 N BILIRUBIN DIRECT (test code = BILD) 0.14 mg/dL 0.0-0.20 N SGOT/AST (test code = AST) 28 IUnit/L 15-37 N SGPT/ALT (test code = ALT) 53 IUnit/L 12-78 N ALKALINE PHOSPHATASE TOTAL (test code = ALKP) 118 IUnit/L 45-117 H Note change in reference range due to change in reagent. [id number] 12:32:00* Test Item Value Reference Range Interpretation Comments LIPASE (test code = LIP) 46 U/L 73.0-393.0 L BASIC METABOLIC [id number] 12:29:00* Test Item Value Reference Range Interpretation Comments SODIUM (test code = NA) 140 mmol/L 136-145 N POTASSIUM (test code = K) 3.6 mmol/L 3.5-5.1 N CHLORIDE (test code = CL) 107.0 mmol/L 98-107 N CARBON DIOXIDE (test code = CO2) 26.0 mmol/L 21-32 N ANION GAP (test code = GAP) 10.6 10-20 N GLUCOSE (test code = GLU) 95 mg/dL 74-106 N BLOOD UREA NITROGEN (test code = BUN) 9 mg/dL 7-18 N GLOMERULAR FILTRATION RATE (test code = GFR) > 60 mL/min >=60 Estimated GFR by using Modified MDRD formula.Chronic kidney disease is defined as either kidney damageor GFR <60 mL/min/1.73 m2 for >3 months. CREATININE (test code = CREAT) 0.80 mg/dL 0.55-1.02 N Note change in reference range due to change in reagent. BUN/CREATININE RATIO (test code = BUN/CREA) 11.4 10-20 N CALCIUM (test code = CA) 8.7 mg/dL 8.5-10.1 N HCG SERUM [id number] 12:29:00* Test Item Value Reference Range Interpretation Comments HCG SERUM QUAL (test code = HCGQL) NEGATIVE NEGATIVE This HCGQL test is NOT applicable for MALE patients.Check with nurse about probable order error.If Tumor Marker Test needed, nurse should order test "HCGTU"(Test #[id number]) [id number] 12:29:00* Test Item Value Reference Range Interpretation Comments TROPONIN-I (test code = TROPI) <0.015 ng/mL 0-0.045 N [id number] 12:08:00* Test Item Value Reference Range Interpretation Comments D-DIMER (test code = DDIMER) 215.00 ng/mLFEU 0-500 N Clinical Cut-off value for D-Dimer is 500 ng/mL FEU. Comment: The [employer] D-Dimer assay is intended for use asan aid in the diagnosis of venous thromboembolism (VTE)[deep vein thrombosis (DVT) or pulmonary embolism (PE)].The measurement of D-Dimer should not be used as an aid inthe diagnosis of VTE, in patient with: -Therapeutic dose anticoagulant therapy for >24 hours -Fibrinolytic therapy within previous 7 days -Trauma or surgery within previous 4 weeks -Disseminated malignancies -Aortic aneurysm -Sepsis, severe infections, pneumonia, severe skin infections -Liver cirrhosis - BASIC METABOLIC [id number] 10:31:00* Test Item Value Reference Range Interpretation Comments SODIUM (test code = NA) 140 mmol/L 136-145 N POTASSIUM (test code = K) 3.6 mmol/L 3.5-5.1 N CHLORIDE (test code = CL) 107.0 mmol/L 98-107 N CARBON DIOXIDE (test code = CO2) 26.0 mmol/L 21-32 N ANION GAP (test code = GAP) 10.6 10-20 N GLUCOSE (test code = GLU) 95 mg/dL 74-106 N BLOOD UREA NITROGEN (test code = BUN) 9 mg/dL 7-18 N GLOMERULAR FILTRATION RATE (test code = GFR) > 60 mL/min >=60 Estimated GFR by using Modified MDRD formula.Chronic kidney disease is defined as either kidney damageor GFR <60 mL/min/1.73 m2 for >3 months. CREATININE (test code = CREAT) 0.80 mg/dL 0.55-1.02 N Note change in reference range due to change in reagent. BUN/CREATININE RATIO (test code = BUN/CREA) 11.4 10-20 N CALCIUM (test code = CA) 8.7 mg/dL 8.5-10.1 N HCG SERUM [id number] 10:31:00* Test Item Value Reference Range Interpretation Comments HCG SERUM QUAL (test code = HCGQL) NEGATIVE [id number] 10:31:00* Test Item Value Reference Range Interpretation Comments TROPONIN-I (test code = TROPI) <0.015 ng/mL 0-0.045 N BASIC METABOLIC [id number] 09:51:00* Test Item Value Reference Range Interpretation Comments SODIUM (test code = NA) 140 mmol/L 136-145 N POTASSIUM (test code = K) 3.6 mmol/L 3.5-5.1 N CHLORIDE (test code = CL) 107.0 mmol/L 98-107 N CARBON DIOXIDE (test code = CO2) mmol/L 21-32 ANION GAP (test code = GAP) 10-20 GLUCOSE (test code = GLU) mg/dL 74-106 BLOOD UREA NITROGEN (test code = BUN) mg/dL 7-18 GLOMERULAR FILTRATION RATE (test code = GFR) mL/min >=60 CREATININE (test code = CREAT) mg/dL 0.55-1.02 BUN/CREATININE RATIO (test code = BUN/CREA) 10-20 CALCIUM (test code = CA) mg/dL 8.5-10.1 HCG SERUM [id number] 09:51:00* Test Item Value Reference Range Interpretation Comments HCG SERUM QUAL (test code = HCGQL) NEGATIVE [id number] 09:51:00* Test Item Value Reference Range Interpretation Comments TROPONIN-I (test code = TROPI) ng/mL 0-0.045 CBC W/O [id number] 09:36:00* Test Item Value Reference Range Interpretation Comments WHITE BLOOD CELL (test code = WBC) 7.5 K/mm3 4.5-12.5 N RED BLOOD CELL (test code = RBC) 4.67 mill/mm3 3.7-5.2 N HEMOGLOBIN (test code = HGB) 13.6 gram/dL 11.5-15.5 N HEMATOCRIT (test code = HCT) 40.1 % 36.0-46.0 N MEAN CELL VOLUME (test code = MCV) 85.9 fL 80-98 N MEAN CELL HGB (test code = MCH) 29.1 picogram 27.0-33.0 N MEAN CELL HGB CONCETRATION (test code = MCHC) 33.9 gram/dL 33.0-36. 0 N RED CELL DISTRIBUTION WIDTH (test code = RDW) 14.6 % 11.6-16. 2 N PLATELET COUNT (test code = PLT) 296 K/mm3 150-450 N MEAN PLATELET VOLUME (test code = MPV) 9.6 fL 6.7-11.0 N CBC W/O [id number] 09:31:00* Test Item Value Reference Range Interpretation Comments WHITE BLOOD CELL (test code = WBC) K/mm3 4.5-12.5 RED BLOOD CELL (test code = RBC) mill/mm3 3.7-5.2 HEMOGLOBIN (test code = HGB) 13.6 gram/dL 11.5-15.5 N HEMATOCRIT (test code = HCT) 40.1 % 36.0-46.0 N MEAN CELL VOLUME (test code = MCV) fL 80-98 MEAN CELL HGB (test code = MCH) picogram 27.0-33.0 MEAN CELL HGB CONCETRATION (test code = MCHC) gram/dL 33.0-36. 0 RED CELL DISTRIBUTION WIDTH (test code = RDW) % 11.6-16. 2 PLATELET COUNT (test code = PLT) K/mm3 150-450 MEAN PLATELET VOLUME (test code = MPV) fL 6.7-11.0 - XR CHEST 1 [id number] 08:32:00 FAX: Kye Pisano MD [phone] [place]: B St: DIS Name: ANGELA DUPREE [facility] : [birth year] Age/S: 43/F Tari Stallworth Unit #: [id number] Loc: [place] [address] Phys: Kye Pisano MD Acct: [id number] Dis Date: [id number] Status: DIS IN PHONE #: [phone] Exam Date: 08/01/2019 08 FAX #: [phone] Reason: CHEST PAIN EXAMS: CPT CODE: [id number] XR CHEST 1 V [id number] REASON FOR EXAM: CHEST PAIN Exam Order Date: 08/01/2019 7:49 AM Ordering M.D.: Kye Pisano MD PROCEDURE: - XR CHEST 1 V COMPARISON: None FINDINGS: The lungs are clear other than focal sub segmental atelectasis versus scarring in the right lower lung zone. There is no pleural effusion or pneumothorax. Pulmonary vascularity is within n ormal limits. Cardiomediastinal silhouette is normal in size for t echnique. The mediastinal contours are within normal limits. Musculoskeletal structures are within normal limits. Prior cholec ystectomy. IMPRESSION: No acute cardiopulmonary process. Location: [facility] at 0832 Reported and signed b y: Sanjay Roman MD CC: Kye Pisano MD Technologist: Naren Quezada RT(R) [facility] [place] Date/Time/By: 08/01/2019 (0832) : By: [email or web address] Orig Print D/T: S: 08/01/2019 (0835) PAGE 1 Inés d Report - XR CHEST 1 [id number] 08:32:00 FAX: Kye Pisano MD [phone] [place]: B St: REG Name: ANGELA DUPREE [facility] : [birth year] Age/S: 43/F Tari Stallworth Unit #: [id number] Loc: [place] [address] Phys: Kye Pisano MD Acct: [id number] Dis Date: Status: REG ER PHONE #: [phone] Exam Date: 08/01/2019 08 FAX #: [phone] Reason: CHEST PAIN EXAMS: CPT CODE: [id number] XR CHEST 1 V [id number] REASON FOR EXAM: CHEST PAIN Exam Order Date: 08/01/2019 7:49 AM Ordering M.D.: Kye Pisano MD PROCEDURE: - XR CHEST 1 V COMPARISON: None FINDINGS: The lungs are clear other than focal sub segmental atelectasis versus scarring in the right lower lung zone. There is no pleural effusion or pneumothorax. Pulmonary vascularity is within n ormal limits. Cardiomediastinal silhouette is normal in size for t echnique. The mediastinal contours are within normal limits. Musculoskeletal structures are within normal limits. Prior cholec ystectomy. IMPRESSION: No acute cardiopulmonary process. Location: [facility] at 0832 Reported and signed b y: Sanjay Roman MD CC: Kye Pisano MD Technologist: Naren Quezada RT(R) Tr nscrd Date/Time/By: 08/01/2019 (831) : By: [email or web address] [facility] Print D/T: S: 08/01/2019 (0896) PAGE 1 Inés d Report - CT C-SPINE W/O [id number] 12:54:00 Patient Name: ANGELA ESPINOSA Unit No: [id number] EXAMS : CPT CODE: [id number] CT C-SP INE W/O CONT 92545 CT cervical spine w ithout contrast 07/10/2019 12:51 PM CLINICAL HISTORY: Left arm pain COMPARISON: None available LOCATION: TECHNIQUE: Axial noncontrast CT images of the cervical spine were obtain ed. Axially acquired data were reformatted in coronal and sagittal planes for further analysis. This examination was performed according to our depa rtmental dose optimization program, which includes automated exposure cont rol, adjustment of the mA and/or kV according to patient size, and/or use of iterative reconstruction technique. FINDINGS: There is straightening of the cervical lordosis. There is no fracture or traumatic malalignment. There are no destructive osseous lesions. 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 At C5-6, a suspected left c entral/subarticular disc protrusion contributes to severe left foraminal s tenosis. At remaining levels, there is no additional central canal or rem arkable foraminal stenosis. The visualized soft tissue is without worriso me finding. IMPRESSION: 1. No fracture or tra umatic malalignment. 2. Suspected left C5-6 disc protrusion, which shou ld be correlated with C6 radiculopathy. Electronic ally Signed by MARSHALL TALLEY M.D. on 07/10/2019 at 1254 Reported and signed by: MARSHALL TALLEY M.D. CC: Homer Bird MD; Faith Quan MD Poli hnologist: NATE Templeton(R)(CT) CTDI: 28.14 DLP: 656 Trscr Dt/Tm: 07/10/2019 (1254) by:[email or web address] Printed Date/Time: 07/10/2019 (1257) Name: STEWART JENAANGELA [facility] Phys: Homer Lopez MD [address] : 1975 Age: 43 Sex: [place] [address] Loc: P.E RS Exam Date: 07/10/2019 Status: REG ER PH: FAX: PAGE 1 Signed Report - CT HEAD/BRAIN W/O [id number] 12:46:00 Patient Name: ANGELA ESPINOSA Unit No: [id number] EXAMS : CPT CODE: [id number] CT HEAD /BRAIN W/O CONT 83315 EXAMINATION: - CT HEAD/BRAIN W/O CONT. LOCATION: A1. HISTORY: left occ ipital WYMAN, LUE numbness. COMPARISON: CT head dated 02/05/2019. TECHNIQUE: Multiple transaxial images were obtained from the vertex to the skull base without IV contrast. This exam was performed according to our departmental dose-optimization program, which includes au tomated exposure control, adjustment of the mA and/or kV according to laurence ent size, and/or use of iterative reconstruction technique. FINDINGS: There is no evidence of hemorrhage, mass, mass effect, or acute infarction. CSF spaces and ventricles are within normal limits. The orbital contents are normal. The sinuses and mastoid air cells are clear. The skull is intact. IMPRESSION: No evidence of acute intracranial abnormality. at 1246 Reported and signed by: ANTONIO BOONE M.D. CC: Homer Bird MD; Faith crespo MD Technologist: NATE Templeton(R)(CT) CTDI: 47.28 DLP: 859 Trscr Dt/Tm: 07/10/2019 (1786) by:nAa [email or web address] Printed Date/Time: 07/10/2019 (8679) Name: ANGELA ESPINOSA [facility] Phys: Homer Lopez MD [address] : 1975 Age: 43 Sex: F [place] [address] Loc: P.ERS Exam Date: 01/2020 Status: REG ER PH: FAX: PAGE 1 Signed Report - XR CHEST 1 [id number] 12:25:00Patient Name: ANGELA ESPINOSA Unit No: [id number] EXAMS: CPT CODE: [id number] XR CHEST 1 V 04783 EXAMINATION: - XR CHEST 1 V. LOCATION: A 1. HISTORY: chest pain. COMPARISON: Radiograph dated 06/12/2019. TECHNIQUE: Single AP view of the chest was obtained. FINDINGS: The heart is normal in size. Mild linear bibasilar opacities are present. No acute osseous abnormality is identified. IMPRESSION: Mild bibasilar atelectasis. at 1225 Reported and signed by: ANTONIO BOONE M.D. CC: Homer Bird MD; Faith Quan MD Technologist: Nuris Carty Time: DAP (Gy m2): Air Kerma (mGy): Trscr Dt/Tm: 07/10/2019 (2697) by:[email or web address] Printed Date/Time: 07/10/2019 (0356) Name: ANGELA ESPINOSA [facility] Phys: Homer Lopez MD [address] : 1975 Age: 43 Sex: [place] [address] [id number] Loc: P.ERS Exam Date: 07/10/2019 Status: REG ER PH: FAX: PAGE 1 Signed Report DRUGS OF ABUSE SCREEN [id number] 12:18:00* Test Item Value Reference Range Interpretation Comments UR COCAINE (test code = COCAU) NEGATIVE NEGATIVE UR CANABINOIDS (test code = CANU) POSITIVE NEGATIVE UR AMPHETAMINE (test code = AMPHU) NEGATIVE NEGATIVE UR BARBITURATE (test code = BARBQLU) NEGATIVE NEGATIVE UR BENZODIAZEPINE (test code = BENZU) POSITIVE NEGATIVE UR OPIATES QUAL (test code = OPIAQLU) NEGATIVE NEGATIVE UR PHENCYCLIDINE (PCP) (test code = PHENCU) NEGATIVE NEGATIVE The assay cut- off concentration: Benzodiazepines 100 ng/mL.Amphetamines 500 ng/mL.Barbiturates 200 ng/mL.Cannabinoids 50 ng/mL.Cocaine 150 ng/mL.Opiates 300 ng/mL.Phencyclidine 25 ng/mL. The method performed by the [facility]for [facility] Drugs of Abuse is performed as a medical screeningtest only. If confirmation testing is required, thephysician must order the confirmatory test within 5 days ofthe specimen's collection date. The specimen will be sentout to an independent reference laboratory. URINALYSIS [id number] 12:14:00* Test Item Value Reference Range Interpretation Comments UA COLOR (test code = COLU) YELLOW DISCRIPT YELLOW UA APPEARANCE (test code = APPU) CLEAR DISCRIPT CLEAR UA GLUCOSE DIPSTICK (test code = DGLUU) NEGATIVE mg/dL NEGATIVE UA BILIRUBIN DIPSTICK (test code = BILU) NEGATIVE NEGATIVE UA KETONE DIPSTICK (test code = KETU) NEGATIVE mg/dL NEGATIVE UA SPECIFIC GRAVITY (test code = SGU) 1.015 1.005-1.030 UA BLOOD DIPSTICK (test code = MAT) NEGATIVE NEGATIVE UA PH DIPSTICK (test code = CHARISMA) 6.0 5.0-9.0 UA PROTEIN DIPSTICK (test code = PROU) NEGATIVE mg/dL NEGATIVE UA UROBILINOGEN DIPSTICK (test code = URO) 0.2 mg/dL 0.2-1.0 UA NITRITE DIPSTICK (test code = MANDI) NEGATIVE NEGATIVE UA LEUKOCYTE ESTERASE DIPSTICK (test code = LEUU) TRACE NEGA TIVE A UA [id number] 12:14:00* Test Item Value Reference Range Interpretation Comments UA WBC (test code = WBCU) 3-5 #WBC/HPF 0-2 A UA RBC (test code = RBCU) NONE SEEN #RBC/HPF 0-2 UA BACTERIA (test code = BACU) 1+ /HPF NONE-TRACE A UA SQUAMOUS CELLS (test code = SQU) 1+ /LPF NONE-TRACE A UA MUCUS (test code = MUCU) OCCASIONAL /LPF NONE SEEN A COMPREHENSIVE METABOLIC [id number] 12:11:00* Test Item Value Reference Range Interpretation Comments SODIUM (test code = NA) 139 MMOL/L 136-143 N POTASSIUM (test code = K) 4.2 MMOL/L 3.5-5.1 N CHLORIDE (test code = CL) 106 MMOL/L 98-107 N CARBON DIOXIDE (test code = CO2) 24 mmol/L 24-31 N GLUCOSE (test code = GLU) 88 mg/dL 70-104 N BLOOD UREA NITROGEN (test code = BUN) 11.4 MG/DL 7.0-21.0 N GLOMERULAR FILTRATION RATE (test code = GFR) >=60 max estimate >60 The estimated glomerular filtration rate is computed usingpatient race, age (>18), sex, and serum creatinine. If anyof the needed data elements are missing the Laboratory cannot compute an estimation of the glomerular filtration rate. CREATININE (test code = CREAT) 0.8 mg/dL 0.8-1.5 N TOTAL PROTEIN (test code = PROT) 6.7 g/dL 6.3-8.3 N ALBUMIN (test code = ALB) 4.0 G/DL 3.5-5.0 N CALCIUM (test code = CA) 9.4 mg/dL 8.8-10.2 N BILIRUBIN TOTAL (test code = BILT) 0.2 mg/dL 0.2-1.0 N SGOT/AST (test code = AST) 20 IU/L 10-34 N SGPT/ALT (test code = ALT) 30 U/L 10-36 N ALKALINE PHOSPHATASE (test code = ALKP) 104 U/L 32-104 N [id number] 12:11:00* Test Item Value Reference Range Interpretation Comments LIPASE (test code = LIP) 39 U/L 0-190 N [id number] 12:11:00* Test Item Value Reference Range Interpretation Comments MAGNESIUM (test code = MAG) 1.7 mg/dL 1.4-2.6 N [id number] 12:11:00* Test Item Value Reference Range Interpretation Comments ALCOHOL (test code = ALC) <10 mg/dl 0-450 N [id number] 12:11:00* Test Item Value Reference Range Interpretation Comments TROPONIN-I (test code = TROPI) <0.3 ng/mL 0.00-0.30 N INTERPRETATIVE DATA:Negative or inconclusive reuslts do not exclude myocardialinfarction. Serial tests at appropriate intervals may benecessary. URINALYSIS [id number] 12:03:00* Test Item Value Reference Range Interpretation Comments UA COLOR (test code = COLU) YELLOW DISCRIPT YELLOW UA APPEARANCE (test code = APPU) CLEAR DISCRIPT CLEAR UA GLUCOSE DIPSTICK (test code = DGLUU) NEGATIVE mg/dL NEGATIVE UA BILIRUBIN DIPSTICK (test code = BILU) NEGATIVE NEGATIVE UA KETONE DIPSTICK (test code = KETU) NEGATIVE mg/dL NEGATIVE UA SPECIFIC GRAVITY (test code = SGU) 1.015 1.005-1.030 UA BLOOD DIPSTICK (test code = MAT) NEGATIVE NEGATIVE UA PH DIPSTICK (test code = CHARISMA) 6.0 5.0-9.0 UA PROTEIN DIPSTICK (test code = PROU) NEGATIVE mg/dL NEGATIVE UA UROBILINOGEN DIPSTICK (test code = URO) 0.2 mg/dL 0.2-1.0 UA NITRITE DIPSTICK (test code = MANDI) NEGATIVE NEGATIVE UA LEUKOCYTE ESTERASE DIPSTICK (test code = LEUU) TRACE NEGA TIVE A UA [id number] 12:03:00* Test Item Value Reference Range Interpretation Comments UA WBC (test code = WBCU) #WBC/HPF 0-2 UA RBC (test code = RBCU) #RBC/HPF 0-2 UA BACTERIA (test code = BACU) /HPF NONE-TRACE UA SQUAMOUS CELLS (test code = SQU) /LPF NONE-TRACE URINALYSIS [id number] 12:03:00* Test Item Value Reference Range Interpretation Comments UA COLOR (test code = COLU) YELLOW DISCRIPT YELLOW UA APPEARANCE (test code = APPU) CLEAR DISCRIPT CLEAR UA GLUCOSE DIPSTICK (test code = DGLUU) NEGATIVE mg/dL NEGATIVE UA BILIRUBIN DIPSTICK (test code = BILU) NEGATIVE NEGATIVE UA KETONE DIPSTICK (test code = KETU) NEGATIVE mg/dL NEGATIVE UA SPECIFIC GRAVITY (test code = SGU) 1.015 1.005-1.030 UA BLOOD DIPSTICK (test code = MAT) NEGATIVE NEGATIVE UA PH DIPSTICK (test code = CHARISMA) 6.0 5.0-9.0 UA PROTEIN DIPSTICK (test code = PROU) NEGATIVE mg/dL NEGATIVE UA UROBILINOGEN DIPSTICK (test code = URO) 0.2 mg/dL 0.2-1.0 UA NITRITE DIPSTICK (test code = MANDI) NEGATIVE NEGATIVE UA LEUKOCYTE ESTERASE DIPSTICK (test code = LEUU) TRACE NEGA TIVE A UA [id number] 12:03:00* Test Item Value Reference Range Interpretation Comments UA WBC (test code = WBCU) #WBC/HPF 0-2 UA RBC (test code = RBCU) #RBC/HPF 0-2 UA BACTERIA (test code = BACU) /HPF NONE-TRACE UA SQUAMOUS CELLS (test code = SQU) /LPF NONE-TRACE PROTHROMBIN [id number] 12:01:00* Test Item Value Reference Range Interpretation Comments PROTHROMBIN TIME PATIENT (test code = PTP) 10.6 SECONDS 10.3-12.9 N INTERNATIONAL NORMAL RATIO (test code = INR) 0.92 INR UNIT 0.9-1.11 N The INR is useful only for monitoring anticoagulant therapy.It may be unreliable in the initial phase of antigoagulationand in unstable patients. Indication for Anticoagulation Recommended INR 1. Prevention of venous thomboembolism 2.0-3.0in high-risk patients; treatment of venousthrombosis and pulmonary embolism aftera course of heparin; prevention of systemicembolism in a variety of conditions, including atrial fibrillation and prothetic tissue heart valves, 2. Prosthetic mechanical heart valves; 2.5-3.5recurrent systemic embolism. CBC W/AUTO [id number] 11:53:00* Test Item Value Reference Range Interpretation Comments WHITE BLOOD CELL (test code = WBC) 5.4 x10 3/uL 4.8-10.8 N RED BLOOD CELL (test code = RBC) 4.44 x10 6/uL 4.20-5.40 N HEMOGLOBIN (test code = HGB) 12.8 g/dL 14.5-20 L HEMATOCRIT (test code = HCT) 39.6 % 37.0-47.0 N MEAN CELL VOLUME (test code = MCV) 89.2 fL 81.0-99.0 N MEAN CELL HGB (test code = MCH) 28.8 pg 27-31 N MEAN CELL HGB CONCENTRATION (test code = MCHC) 32.3 G/DL 33-36.5 L RED CELL DISTRIBUTION WIDTH (test code = RDW) 13.4 % 12.9-16. 9 N PLATELET COUNT (test code = PLT) 260 150-440 N MEAN PLATELET VOLUME (test code = MPV) 9.1 fL 8.9-12.4 N NEUTROPHIL % (test code = NT%) 59.5 % 42.2-75.2 N LYMPHOCYTE % (test code = LY%) 30.1 % 20.5-51.1 N MONOCYTE % (test code = MO%) 6.3 % 1.7-9.3 N EOSINOPHIL % (test code = EO%) 3.2 % 0.0-7.0 N BASOPHIL % (test code = BA%) 0.7 % 0-2.5 N NEUTROPHIL # (test code = NT#) 3.20 x10 3/uL 1.80-7.70 N LYMPHOCYTE # (test code = LY#) 1.62 x10 3/uL 1.00-4.80 N MONOCYTE # (test code = MO#) 0.34 x10 3/uL 0.00-0.80 N EOSINOPHIL # (test code = EO#) 0.17 x10 3/uL 0.00-0.45 N BASOPHIL # (test code = BA#) 0.04 x10 3/uL 0.0-0.20 N DRUGS OF ABUSE SCREEN [id number] 09:32:00* Test Item Value Reference Range Interpretation Comments UA PH DIPSTICK (test code = CHARISMA) 5.5 5.0-8.0 URN COCAINE (test code = COCAURN) NEGATIVE <300 ng/mL URN CANNABINOIDS (test code = CANNABURN) POSITIVE <50 ng/mL A This test provides only a preliminary test result. A morespecific alternate chemical method must be used in order toobtain a confirmed analytical result. Gas chromatography/mass spectrometry (GC/MS) is thepreferred confirmatory method. Other chemical confirmationmethods are available. Clinical consideration and professional judgment should be applied to any drug of abusetest result, particularly when preliminary positive resultsare used.Unconfirmed screening results must not be used fornon-medical purposes (e.g., employment testing, legaltesting). URN AMPHETAMINE (test code = AMPHETURN) NEGATIVE <1000 ng/mL URN BARBITURATE (test code = BARBITURN) NEGATIVE <200 ng/mL URN BENZODIAZEPINE (test code = BENZOURN) POSITIVE <200 ng/mL A This test provides only a preliminary test result. A morespecific alternate chemical method must be used in order toobtain a confirmed analytical result. Gas chromatography/mass spectrometry (GC/MS) is thepreferred confirmatory method. Other chemical confirmationmethods are available. Clinical consideration and professional judgment should be applied to any drug of abusetest result, particularly when preliminary positive resultsare used.Unconfirmed screening results must not be used fornon-medical purposes (e.g., employment testing, legaltesting). URN OPIATES (test code = OPIATURN) NEGATIVE <300 ng/mL URN PHENCYCLIDINE (PCP) (test code = PHENCURN) NEGATIVE <25 ng/ mL URN METHADONE (test code = METHAURN) NEGATIVE <300 ng/mL HEPATIC FUNCTION [id number] 09:18:00* Test Item Value Reference Range Interpretation Comments TOTAL PROTEIN (test code = PROT) 7.2 gram/dL 6.4-8.2 N ALBUMIN (test code = ALB) 3.8 g/dL 3.4-5.0 N GLOBULIN (test code = GLOB) 3.4 gram/dL 2.7-4.2 N ALBUMIN/GLOBULIN RATIO (test code = A/G) 1.1 0.75-1.50 N BILIRUBIN TOTAL (test code = BILT) 0.30 mg/dL 0.0-1.0 N BILIRUBIN DIRECT (test code = BILD) 0.10 mg/dL 0.0-0.20 N SGOT/AST (test code = AST) 18 IUnit/L 15-37 N SGPT/ALT (test code = ALT) 40 IUnit/L 12-78 N ALKALINE PHOSPHATASE TOTAL (test code = ALKP) 121 IUnit/L 45-117 H Note change in reference range due to change in reagent. [id number] 09:18:00* Test Item Value Reference Range Interpretation Comments ALCOHOL (test code = ALC) < 3 mg/dL 0.0-3.0 N -- INTERPRETIVE DATA NOTE: POSITIVE SCREENING RESULTS SHOULD BE CONSIDERED PRESUMPTIVE.WHEN COLLECTED FOR MEDICAL PURPOSES ONLY. SPECIMEN WILL NOTBE COLLECTED BY CHAIN OF CUSTODY.IF A CONFIRMATION OF POSITIVE RESULTS IS DESIRED, ACONFIRMATION TEST MUST BE REQUESTED BY THE PHYSICIAN AT ANADDITIONAL CHARGE TO THE PATIENT. BASIC METABOLIC [id number] 09:14:00* Test Item Value Reference Range Interpretation Comments SODIUM (test code = NA) 140 mmol/L 136-145 N POTASSIUM (test code = K) 3.7 mmol/L 3.5-5.1 N CHLORIDE (test code = CL) 106.0 mmol/L 98-107 N CARBON DIOXIDE (test code = CO2) 27.0 mmol/L 21-32 N ANION GAP (test code = GAP) 10.7 10-20 N GLUCOSE (test code = GLU) 105 mg/dL 74-106 N BLOOD UREA NITROGEN (test code = BUN) 14 mg/dL 7-18 N GLOMERULAR FILTRATION RATE (test code = GFR) > 60 mL/min >=60 Estimated GFR by using Modified MDRD formula.Chronic kidney disease is defined as either kidney damageor GFR <60 mL/min/1.73 m2 for >3 months. CREATININE (test code = CREAT) 1.00 mg/dL 0.55-1.02 N Note change in reference range due to change in reagent. BUN/CREATININE RATIO (test code = BUN/CREA) 14.0 10-20 N CALCIUM (test code = CA) 10.4 mg/dL 8.5-10.1 H [id number] 09:14:00* Test Item Value Reference Range Interpretation Comments TROPONIN-I (test code = TROPI) <0.015 ng/mL 0-0.045 N BASIC METABOLIC [id number] 09:08:00* Test Item Value Reference Range Interpretation Comments SODIUM (test code = NA) 140 mmol/L 136-145 N POTASSIUM (test code = K) 3.7 mmol/L 3.5-5.1 N CHLORIDE (test code = CL) 106.0 mmol/L 98-107 N CARBON DIOXIDE (test code = CO2) mmol/L 21-32 ANION GAP (test code = GAP) 10-20 GLUCOSE (test code = GLU) mg/dL 74-106 BLOOD UREA NITROGEN (test code = BUN) mg/dL 7-18 GLOMERULAR FILTRATION RATE (test code = GFR) mL/min >=60 CREATININE (test code = CREAT) mg/dL 0.55-1.02 BUN/CREATININE RATIO (test code = BUN/CREA) 10-20 CALCIUM (test code = CA) mg/dL 8.5-10.1 [id number] 09:08:00* Test Item Value Reference Range Interpretation Comments TROPONIN-I (test code = TROPI) ng/mL 0-0.045 URINALYSIS [id number] 09:05:00* Test Item Value Reference Range Interpretation Comments UA COLOR (test code = COLU) Light-Yellow YELLOW UA APPEARANCE (test code = APPU) CLEAR CLEAR UA GLUCOSE DIPSTICK (test code = DGLUU) NEGATIVE mg/dL NEGATIVE UA BILIRUBIN DIPSTICK (test code = BILU) NEGATIVE mg/dL NEGATIVE UA KETONE DIPSTICK (test code = KETU) NEGATIVE mg/dL NEGATIVE UA SPECIFIC GRAVITY (test code = SGU) 1.006 1.001-1.035 UA BLOOD DIPSTICK (test code = MAT) Negative mg/dL NEGATIVE UA PH DIPSTICK (test code = CHARISMA) 5.5 5.0-8.0 UA PROTEIN DIPSTICK (test code = PROU) NEGATIVE mg/dL NEGATIVE UA UROBILINIOGEN DIPSTICK (test code = URO) Normal mg/dL NEGATIVE UA NITRITE DIPSTICK (test code = MANDI) NEGATIVE NEGATIVE UA LEUKOCYTE ESTERASE W REFLEX (test code = LEUUR) 25 Rah/uL (Trace) Rah/uL NEGATIVE A UA WBC (test code = WBCU) 0-5 per HPF 0-5 UA RBC (test code = RBCU) 3-5 #/HPF 0-5 UA EPITHELIAL CELLS (test code = EPIU) FEW per HPF FEW UA BACTERIA (test code = BACU) MODERATE #/HPF NONE A UA MUCUS (test code = MUCU) FEW #/LPF FEW Urine Source? Clean CatchDRUGS OF ABUSE SCREEN [id number] 09:05:00* Test Item Value Reference Range Interpretation Comments UA PH DIPSTICK (test code = CHARISMA) 5.5 5.0-8.0 URN COCAINE (test code = COCAURN) <300 ng/mL URN CANNABINOIDS (test code = CANNABURN) <50 ng/mL URN AMPHETAMINE (test code = AMPHETURN) <1000 ng/mL URN BARBITURATE (test code = BARBITURN) <200 ng/mL URN BENZODIAZEPINE (test code = BENZOURN) <200 ng/mL URN OPIATES (test code = OPIATURN) <300 ng/mL URN PHENCYCLIDINE (PCP) (test code = PHENCURN) <25 ng/ mL URN METHADONE (test code = METHAURN) <300 ng/mL PROTHROMBIN [id number] 09:05:00* Test Item Value Reference Range Interpretation Comments PROTHROMBIN TIME PATIENT (test code = PTP) 11.1 seconds 9.0-14.0 N INTERNATIONAL NORMAL RATIO (test code = INR) 0.9 0.8-1.2 N The therapeutic range for oral anticoagulant therapy formost indications is an international normalized ratio (INR)of between 2.0 and 3.0. The recommended therapeutic INRrange for various clinical situations is listed below: Clinical Situation INR range Pulmonary e mbolism treatment (2.0-3.0)Venous thrombosis treatmentVenous thrombosis prophylaxis (high risk surgery)Prevention of systemic embolism from: Acute myocardial infarction Valvular heart disease Atrial fibrillation Mechanical prosthetic heart valves (2.5-3.5) IS PATIENT ON ANTICOAGULANTS? NTHROMBOPLASTIN TIME [id number] 09:05:00* Test Item Value Reference Range Interpretation Comments THROMBOPLASTIN TIME PARTIAL (test code = PTT) 36.8 seconds 25.0-36. 5 H IS PATIENT ON ANTICOAGULANTS? NCBC W/AUTO [id number] 08:57:00* Test Item Value Reference Range Interpretation Comments WHITE BLOOD CELL (test code = WBC) 5.9 K/mm3 4.5-12.5 N RED BLOOD CELL (test code = RBC) 4.76 mill/mm3 3.7-5.2 N HEMOGLOBIN (test code = HGB) 13.7 gram/dL 11.5-15.5 N HEMATOCRIT (test code = HCT) 41.2 % 36.0-46.0 N MEAN CELL VOLUME (test code = MCV) 86.6 fL 80-98 N MEAN CELL HGB (test code = MCH) 28.8 picogram 27.0-33.0 N MEAN CELL HGB CONCETRATION (test code = MCHC) 33.3 gram/dL 33.0-36. 0 N RED CELL DISTRIBUTION WIDTH (test code = RDW) 13.6 % 11.6-16. 2 N RED CELL DISTRIBUTION WIDTH SD (test code = RDW-SD) 42.5 fL 37 .0-51.0 N PLATELET COUNT (test code = PLT) 327 K/mm3 150-450 N MEAN PLATELET VOLUME (test code = MPV) 9.5 fL 6.7-11.0 N NEUTROPHIL % (test code = NT%) 64.5 % 39.0-69.0 N IMMATURE GRANULOCYTE % (test code = IG%) 0.3 % 0.0-5.0 N LYMPHOCYTE % (test code = LY%) 26.2 % 25.0-55.0 N MONOCYTE % (test code = MO%) 5.9 % 0.0-10.0 N EOSINOPHIL % (test code = EO%) 2.4 % 0.0-5.0 N BASOPHIL % (test code = BA%) 0.7 % 0.0-1.0 N NUCLEATED RBC % (test code = NRBC%) 0.0 % 0-0 N NEUTROPHIL # (test code = NT#) 3.81 K/mm3 1.8-7.7 N IMMATURE GRANULOCYTE # (test code = IG#) 0.02 x10 3/uL 0-0.03 N LYMPHOCYTE # (test code = LY#) 1.55 K/mm3 1.0-5.0 N MONOCYTE # (test code = MO#) 0.35 K/mm3 0-0.8 N EOSINOPHIL # (test code = EO#) 0.14 K/mm3 0.0-0.5 N BASOPHIL # (test code = BA#) 0.04 K/mm3 0.0-0.2 N NUCLEATED RBC # (test code = NRBC#) 0.00 K/mm3 0.0-0.1 N [id number] 07:52:00* Test Item Value Reference Range Interpretation Comments TROPONIN-I (test code = TROPI) <0.015 ng/mL 0-0.045 N COMMENTS TO COMMERCIAL PAINTER: COLLECT 3 HOURS AFTER PREVIOUS [id number] 23:29:00* Test Item Value Reference Range Interpretation Comments TROPONIN-I (test code = TROPI) <0.015 ng/mL 0-0.045 N DRUGS OF ABUSE SCREEN [id number] 22:04:00* Test Item Value Reference Range Interpretation Comments UA PH DIPSTICK (test code = CHARISMA) 7.0 5.0-8.0 URN COCAINE (test code = COCAURN) NEGATIVE <300 ng/mL URN CANNABINOIDS (test code = CANNABURN) POSITIVE <50 ng/mL A This test provides only a preliminary test result. A morespecific alternate chemical method must be used in order toobtain a confirmed analytical result. Gas chromatography/mass spectrometry (GC/MS) is thepreferred confirmatory method. Other chemical confirmationmethods are available. Clinical consideration and professional judgment should be applied to any drug of abusetest result, particularly when preliminary positive resultsare used.Unconfirmed screening results must not be used fornon-medical purposes (e.g., employment testing, legaltesting). URN AMPHETAMINE (test code = AMPHETURN) NEGATIVE <1000 ng/mL URN BARBITURATE (test code = BARBITURN) NEGATIVE <200 ng/mL URN BENZODIAZEPINE (test code = BENZOURN) POSITIVE <200 ng/mL A This test provides only a preliminary test result. A morespecific alternate chemical method must be used in order toobtain a confirmed analytical result. Gas chromatography/mass spectrometry (GC/MS) is thepreferred confirmatory method. Other chemical confirmationmethods are available. Clinical consideration and professional judgment should be applied to any drug of abusetest result, particularly when preliminary positive resultsare used.Unconfirmed screening results must not be used fornon-medical purposes (e.g., employment testing, legaltesting). URN OPIATES (test code = OPIATURN) NEGATIVE <300 ng/mL URN PHENCYCLIDINE (PCP) (test code = PHENCURN) NEGATIVE <25 ng/ mL URN METHADONE (test code = METHAURN) NEGATIVE <300 ng/mL DRUGS OF ABUSE SCREEN [id number] 21:39:00* Test Item Value Reference Range Interpretation Comments UA PH DIPSTICK (test code = CHARISMA) 7.0 5.0-8.0 URN COCAINE (test code = COCAURN) <300 ng/mL URN CANNABINOIDS (test code = CANNABURN) <50 ng/mL URN AMPHETAMINE (test code = AMPHETURN) <1000 ng/mL URN BARBITURATE (test code = BARBITURN) <200 ng/mL URN BENZODIAZEPINE (test code = BENZOURN) <200 ng/mL URN OPIATES (test code = OPIATURN) <300 ng/mL URN PHENCYCLIDINE (PCP) (test code = PHENCURN) <25 ng/ mL URN METHADONE (test code = METHAURN) <300 ng/mL - CTA [id number] 21:01:00 Name: ANGELA ESPINOSA [facility] : 1975 Age/S: 43 / F [address] Unit #: [id number] Loc: [place] [address] Phys: Gaby Salazar MD Acct: [id number] Dis Date: Status: REG ER PHONE #: [phone] Exam Date: 06/20/20192049 FAX #: [phone] Reason: left sided weakness EXAMS: CPT CODE: [id number] CTA HEAD 42610 REASON FOR EXAM: left sided weakness EXAM ORDER DATE: 06/20/2019 8:18 PM Ordering: Gaby Salazar MD Attending:Gaby Salazar MD Location:[facility] PROCEDURE: - CTA HEAD COMPARISON: FINDINGS: Axial images of the head were obtained with IV contrast. Dose reduction techniques were applied. Reconstructed 3-D angiogram of the cerebral vessels as well as intraluminal vessel analysis were also provided for interpretation The visualized segment of the ICAs are unremarkable. The ACAs, MCAs, and pump press operator are unremarkable. The basilar artery is within normal limits IMPRESSION: Unremarkable cerebral angiogram at 2100 Reported and signed by: Eliezer Pinto M.D. CC: Gaby Salazar MD Technologist:NAREN SLADE RT(R) CT CTDI: DLP: Trnscb Date/Time: 06/20/2019 (2100) t.DIONR.VTL Orig Print D/T: S: 06/20/2019 (2103) PAGE 1 Signed Report - CTA [id number] 20:58:00 Name: ANGELA ESPINOSA [facility] : 1975 Age/S: 43 / F [address] [facility] Unit #: [id number] Loc: [place] [address] Phys: Rudy Salazar MD Acct: [id number] Di s Date: Status: REG ER PHONE #: Exam Date: 06/20/20192049 FAX #: Reason: left sided weakness EXAMS: CPT CODE: [id number] CTA NECK 76546 REASON FOR EXAM: left sided weakness EXAM ORDER DATE: 06/20/2019 8:18 PM Ordering: Gaby Salazar MD Attending:Gaby Salazar MD Locat ion:[facility] PROCEDURE: - CTA NECK COMPARISON: FINDINGS: Axial images of the neck were obtained with IV contrast. Dose reduction techniques were applied. Reconstructed 3-D angiogram of the cervical vessels as well as intraluminal vessel analysis were also provided for interpretation The common carotid, internal, and ba silar arteries are within normal limits IMPRESSION: Unrema rkable cervical angiogram Electronically Signed by Pillo Pinto on 0 06/20/2019 at 2057 Reported and signed by: Eliezer Pinto M.D. CC: Gaby Salazar MD Techn ologist:NAREN SLADE RT(R) CT CTDI: DLP: Trnscb Date/Andrzej e: 06/20/2019 (2057) t.SDR.VTL Orig Print D/T: S: 020 (2100) PAGE 1 Signed Report BASIC METABOLIC [id number] 19:15:00* Test Item Value Reference Range Interpretation Comments SODIUM (test code = NA) 141 mmol/L 136-145 N POTASSIUM (test code = K) 3.6 mmol/L 3.5-5.1 N CHLORIDE (test code = CL) 106.0 mmol/L 98-107 N CARBON DIOXIDE (test code = CO2) 30.0 mmol/L 21-32 N ANION GAP (test code = GAP) 8.6 10-20 L GLUCOSE (test code = GLU) 99 mg/dL 74-106 N BLOOD UREA NITROGEN (test code = BUN) 9 mg/dL 7-18 N GLOMERULAR FILTRATION RATE (test code = GFR) > 60 mL/min >=60 Estimated GFR by using Modified MDRD formula.Chronic kidney disease is defined as either kidney damageor GFR <60 mL/min/1.73 m2 for >3 months. CREATININE (test code = CREAT) 0.90 mg/dL 0.55-1.02 N Note change in reference range due to change in reagent. BUN/CREATININE RATIO (test code = BUN/CREA) 10.0 10-20 N CALCIUM (test code = CA) 10.5 mg/dL 8.5-10.1 H HCG SERUM [id number] 19:15:00* Test Item Value Reference Range Interpretation Comments HCG SERUM QUAL (test code = HCGQL) NEGATIVE NEGATIVE This HCGQL test is NOT applicable for MALE patients.Check with nurse about probable order error.If Tumor Marker Test needed, nurse should order test "HCGTU"(Test #550.17792) [id number] 19:15:00* Test Item Value Reference Range Interpretation Comments TROPONIN-I (test code = TROPI) <0.015 ng/mL 0-0.045 N - XR CHEST 1 [id number] 19:14:00 FAX: Gaby Salazar MD [place]: St: REG Name: ANGELA DUPREE [facility] : [birth year] Age/S: 43/F [address] [facility] Unit #: [id number] Loc: [place] [address] Phys: Gaby Salazar MD Acct: [id number] Dis Date: Status: REG ER PHONE #: [phone] Exam Date: 06/20/20191912 FAX #: [phone] Reason: CODE STROKE EXAMS: CPT CODE: [id number] XR CHEST 1 V 55513 REASON FOR EXAM: CODE STROKE EXAM ORDER DATE: 06/20/2019 6:30 PM Ordering: Gaby Salazar MD Attending:Gaby Salazar MD Location:[facility] PROCEDURE: - XR CHEST 1 V COMPARISON: FINDINGS: Portable AP frontal view of the chest obtained at 7:08 PM shows clear l ungs without evidence of consolidation. There is no evidence of effusion. The heart size is within normal limits. Pulmonary vasculatures are unremar kable. IMPRESSION: No active disease. Electronicall y Signed by Pillo Pinto on 06/20/2019 at 1914 Reported and signed by: Eliezer Pinto M.D. CC: Gaby Salazar MD Technologist: GODWIN JAEGER; Alex Rivera [place] sa, RT(R Trnscrd Date/Time/By: 06/20/2019 (1913) : By: RayoL Orig Print D/T: S: 06/20/2019 (1916) PAGE 1 Signed Report BASIC METABOLIC PANEL 2019-06-20 19:09:00* Test Item Value Reference Range Interpretation Comments SODIUM (test code = NA) 141 mmol/L 136-145 N POTASSIUM (test code = K) 3.6 mmol/L 3.5-5.1 N CHLORIDE (test code = CL) 106.0 mmol/L 98-107 N CARBON DIOXIDE (test code = CO2) mmol/L 21-32 ANION GAP (test code = GAP) 10-20 GLUCOSE (test code = GLU) mg/dL 74-106 BLOOD UREA NITROGEN (test code = BUN) mg/dL 7-18 GLOMERULAR FILTRATION RATE (test code = GFR) mL/min >=60 CREATININE (test code = CREAT) mg/dL 0.55-1.02 BUN/CREATININE RATIO (test code = BUN/CREA) 10-20 CALCIUM (test code = CA) mg/dL 8.5-10.1 HCG SERUM [id number] 19:09:00* Test Item Value Reference Range Interpretation Comments HCG SERUM QUAL (test code = HCGQL) NEGATIVE NEGATIVE This HCGQL test is NOT applicable for MALE patients.Check with nurse about probable order error.If Tumor Marker Test needed, nurse should order test "HCGTU"(Test #550.74163) [id number] 19:09:00* Test Item Value Reference Range Interpretation Comments TROPONIN-I (test code = TROPI) ng/mL 0-0.045 [id number] 19:06:00* Test Item Value Reference Range Interpretation Comments ALCOHOL (test code = ALC) < 3 mg/dL 0.0-3.0 N -- INTERPRETIVE DATA NOTE: POSITIVE SCREENING RESULTS SHOULD BE CONSIDERED PRESUMPTIVE.WHEN COLLECTED FOR MEDICAL PURPOSES ONLY. SPECIMEN WILL NOTBE COLLECTED BY CHAIN OF CUSTODY.IF A CONFIRMATION OF POSITIVE RESULTS IS DESIRED, ACONFIRMATION TEST MUST BE REQUESTED BY THE PHYSICIAN AT ANADDITIONAL CHARGE TO THE PATIENT. BASIC METABOLIC [id number] 19:00:00* Test Item Value Reference Range Interpretation Comments SODIUM (test code = NA) 141 mmol/L 136-145 N POTASSIUM (test code = K) 3.6 mmol/L 3.5-5.1 N CHLORIDE (test code = CL) 106.0 mmol/L 98-107 N CARBON DIOXIDE (test code = CO2) mmol/L 21-32 ANION GAP (test code = GAP) 10-20 GLUCOSE (test code = GLU) mg/dL 74-106 BLOOD UREA NITROGEN (test code = BUN) mg/dL 7-18 GLOMERULAR FILTRATION RATE (test code = GFR) mL/min >=60 CREATININE (test code = CREAT) mg/dL 0.55-1.02 BUN/CREATININE RATIO (test code = BUN/CREA) 10-20 CALCIUM (test code = CA) mg/dL 8.5-10.1 HCG SERUM [id number] 19:00:00* Test Item Value Reference Range Interpretation Comments HCG SERUM QUAL (test code = HCGQL) NEGATIVE [id number] 19:00:00* Test Item Value Reference Range Interpretation Comments TROPONIN-I (test code = TROPI) ng/mL 0-0.045 PROTHROMBIN [id number] 18:57:00* Test Item Value Reference Range Interpretation Comments PROTHROMBIN TIME PATIENT (test code = PTP) 11.1 seconds 9.0-14.0 N INTERNATIONAL NORMAL RATIO (test code = INR) 0.9 0.8-1.2 N The therapeutic range for oral anticoagulant therapy formost indications is an international normalized ratio (INR)of between 2.0 and 3.0. The recommended therapeutic INRrange for various clinical situations is listed below: Clinical Situation INR range Pulmonary e mbolism treatment (2.0-3.0)Venous thrombosis treatmentVenous thrombosis prophylaxis (high risk surgery)Prevention of systemic embolism from: Acute myocardial infarction Valvular heart disease Atrial fibrillation Mechanical prosthetic heart valves (2.5-3.5) IS PATIENT ON ANTICOAGULANTS? NTHROMBOPLASTIN TIME [id number] 18:57:00* Test Item Value Reference Range Interpretation Comments THROMBOPLASTIN TIME PARTIAL (test code = PTT) 36.9 seconds 25.0-36. 5 H IS PATIENT ON ANTICOAGULANTS? NCBC W/AUTO [id number] 18:57:00* Test Item Value Reference Range Interpretation Comments WHITE BLOOD CELL (test code = WBC) 8.4 K/mm3 4.5-12.5 N RED BLOOD CELL (test code = RBC) 5.09 mill/mm3 3.7-5.2 N HEMOGLOBIN (test code = HGB) 14.7 gram/dL 11.5-15.5 N HEMATOCRIT (test code = HCT) 43.9 % 36.0-46.0 N MEAN CELL VOLUME (test code = MCV) 86.2 fL 80-98 N MEAN CELL HGB (test code = MCH) 28.9 picogram 27.0-33.0 N MEAN CELL HGB CONCETRATION (test code = MCHC) 33.5 gram/dL 33.0-36. 0 N RED CELL DISTRIBUTION WIDTH (test code = RDW) 13.4 % 11.6-16. 2 N RED CELL DISTRIBUTION WIDTH SD (test code = RDW-SD) 41.9 fL 37 .0-51.0 N PLATELET COUNT (test code = PLT) 275 K/mm3 150-450 N MEAN PLATELET VOLUME (test code = MPV) 9.0 fL 6.7-11.0 N NEUTROPHIL % (test code = NT%) 63.2 % 39.0-69.0 N IMMATURE GRANULOCYTE % (test code = IG%) 0.2 % 0.0-5.0 N LYMPHOCYTE % (test code = LY%) 27.6 % 25.0-55.0 N MONOCYTE % (test code = MO%) 6.5 % 0.0-10.0 N EOSINOPHIL % (test code = EO%) 1.8 % 0.0-5.0 N BASOPHIL % (test code = BA%) 0.7 % 0.0-1.0 N NUCLEATED RBC % (test code = NRBC%) 0.0 % 0-0 N NEUTROPHIL # (test code = NT#) 5.33 K/mm3 1.8-7.7 N IMMATURE GRANULOCYTE # (test code = IG#) 0.02 x10 3/uL 0-0.03 N LYMPHOCYTE # (test code = LY#) 2.33 K/mm3 1.0-5.0 N MONOCYTE # (test code = MO#) 0.55 K/mm3 0-0.8 N EOSINOPHIL # (test code = EO#) 0.15 K/mm3 0.0-0.5 N BASOPHIL # (test code = BA#) 0.06 K/mm3 0.0-0.2 N NUCLEATED RBC # (test code = NRBC#) 0.00 K/mm3 0.0-0.1 N MANUAL DIFF REQUIRED (test code = MDIFF) NO - CT HEAD/BRAIN W/O [id number] 18:53:00 Name: ANGELA ESPINOSA [facility] : 1975 Age/S: 43 / F [address] [facility] Unit #: [id number] Loc: [place] [address] Phys: Gaby Salazar MD Acct: [id number] Dis Date: Status: PRE ER PHONE #: [phone] Exam Date: 06/20/2019 1843 FAX #: [phone] Reason: left arm weakness and facial weakness EXAMS: CPT CODE: [id number] CT HEAD/BRAIN W/O CONT 72983 REASON FOR EXAM: left arm weakness and facial weakness EXAM ORDER DATE: 06/20/2019 6:30 PM Ordering: Gaby Salazar MD Attending:Gaby Salazar MD Location:[facility] PROCEDURE: - CT HEAD/BRAIN W/O CONT COMPARISON: FINDINGS: CT images of the brain were obtained without IV contrast. Dose modulation, iterative reconstruction, and/or weight based adjustment of the MA/KV was utilized to reduce the radiation dose to as low as reasonably achievable. The brain parenchyma is within normal limits. The neff-white matter delineation is unremarkable. The ventricles, cisterns, and sulci are unremarkable. There is no evidence of hemorrhage, mass, mass effect. There is no evidence of acute or old infarct. The calvarium is intact. IMPRESSION: Unremarkable brain. Dr. Salazar was informed of the findings by telephone at at 6:53 PM. FOR INTERNAL CODING PURPOSES ONL Y RESULT CODE: CVR at 1853 Reported an d signed by: lEiezer Pinto M.D. CC: Gaby Salazar MD Technologist:Katie Wu RT(R); NAREN Lewis CTDI: DLP: Trnscb Date/Time: 06/20/2019 (1852) tFIONAVTL Orig P thiago D/T: S: 06/20/2019 (1856) PAGE 1 Signed Report PROTHROMBIN [id number] 13:09:00* Test Item Value Reference Range Interpretation Comments PROTHROMBIN TIME PATIENT (test code = PTP) 11.8 seconds 9.0-14.0 N INTERNATIONAL NORMAL RATIO (test code = INR) 1.0 0.8-1.2 N The therapeutic range for oral anticoagulant therapy formost indications is an international normalized ratio (INR)of between 2.0 and 3.0. The recommended therapeutic INRrange for various clinical situations is listed below: Clinical Situation INR range Pulmonary e mbolism treatment (2.0-3.0)Venous thrombosis treatmentVenous thrombosis prophylaxis (high risk surgery)Prevention of systemic embolism from: Acute myocardial infarction Valvular heart disease Atrial fibrillation Mechanical prosthetic heart valves (2.5-3.5) THROMBOPLASTIN TIME [id number] 13:09:00* Test Item Value Reference Range Interpretation Comments THROMBOPLASTIN TIME PARTIAL (test code = PTT) 34.8 seconds 25.0-36. 5 N [id number] 13:09:00* Test Item Value Reference Range Interpretation Comments FIBRINOGEN (test code = FIB) 296 mg/dL 200-400 N FIBRIN SPLIT [id number] 13:09:00* Test Item Value Reference Range Interpretation Comments FIBRIN SPLIT PRODUCT (test code = FSP) <5 ug/mL <5 Performed At: [address] [id number] Sanjai MD Ph:[phone] [id number] 13:09:00* Test Item Value Reference Range Interpretation Comments D-DIMER (test code = DDIMER) 526.00 ng/mLFEU 0-500 HH Results called to [id number] by V.LAB.LT 06/16/19 2016Critical results verified and read back by Nurse? YClinical Cut-off value for D-Dimer is 500 ng/mL FEU. Comment: The [employer] D- Dimer assay is intended for use asan aid in the diagnosis of venous thromboembolism (VTE)[deep vein thrombosis (DVT) or pulmonary embolism (PE)].The measurement of D-Dimer should not be used as an aid inthe diagnosis of VTE, in patient with: -Therapeutic dose anticoagulant therapy for >24 hours - Fibrinolytic therapy within previous 7 days -Trauma or surgery within previous 4 weeks -Disseminated malignancies -Aortic aneurysm -Sepsis, severe infections, pneumonia, severe skin infections -Liver cirrhosis - ANTITHROMBIN III (ATIII)2019-06-20 13:09:00* Test Item Value Reference Range Interpretation Comments ANTITHROMBIN III (ATIII) (test code = AT3) 110 % 75-135 Direct Xa inhibitor anticoagulants such as rivaroxaban,apixaban and edoxaban will lead to spuriously elevatedantithrombin activity levels possibly masking a deficiency.Performed At: [facility] [id number] Sanjai MD Ph:[phone] PROTHROMBIN [id number] 12:08:00* Test Item Value Reference Range Interpretation Comments PROTHROMBIN TIME PATIENT (test code = PTP) 11.8 seconds 9.0-14.0 N INTERNATIONAL NORMAL RATIO (test code = INR) 1.0 0.8-1.2 N The therapeutic range for oral anticoagulant therapy formost indications is an international normalized ratio (INR)of between 2.0 and 3.0. The recommended therapeutic INRrange for various clinical situations is listed below: Clinical Situation INR range Pulmonary e mbolism treatment (2.0-3.0)Venous thrombosis treatmentVenous thrombosis prophylaxis (high risk surgery)Prevention of systemic embolism from: Acute myocardial infarction Valvular heart disease Atrial fibrillation Mechanical prosthetic heart valves (2.5-3.5) THROMBOPLASTIN TIME [id number] 12:08:00* Test Item Value Reference Range Interpretation Comments THROMBOPLASTIN TIME PARTIAL (test code = PTT) 34.8 seconds 25.0-36. 5 N [id number] 12:08:00* Test Item Value Reference Range Interpretation Comments FIBRINOGEN (test code = FIB) 296 mg/dL 200-400 N FIBRIN SPLIT [id number] 12:08:00* Test Item Value Reference Range Interpretation Comments FIBRIN SPLIT PRODUCT (test code = FSP) mcg/mL <5 [id number] 12:08:00* Test Item Value Reference Range Interpretation Comments D-DIMER (test code = DDIMER) 526.00 ng/mLFEU 0-500 HH Results called to [id number] by JENYLT 06/16/19 2016Critical results verified and read back by Nurse? YClinical Cut-off value for D-Dimer is 500 ng/mL FEU. Comment: The [employer] D- Dimer assay is intended for use asan aid in the diagnosis of venous thromboembolism (VTE)[deep vein thrombosis (DVT) or pulmonary embolism (PE)].The measurement of D-Dimer should not be used as an aid inthe diagnosis of VTE, in patient with: -Therapeutic dose anticoagulant therapy for >24 hours - Fibrinolytic therapy within previous 7 days -Trauma or surgery within previous 4 weeks -Disseminated malignancies -Aortic aneurysm -Sepsis, severe infections, pneumonia, severe skin infections -Liver cirrhosis - ANTITHROMBIN III (ATIII)2019-06-20 12:08:00* Test Item Value Reference Range Interpretation Comments ANTITHROMBIN III (ATIII) (test code = AT3) 110 % 75-135 Direct Xa inhibitor anticoagulants such as rivaroxaban,apixaban and edoxaban will lead to spuriously elevatedantithrombin activity levels possibly masking a deficiency.Performed At: [facility] [id number] Sanjai MD Ph:[phone] SED RATE [id number] 01:32:00* Test Item Value Reference Range Interpretation Comments SED RATE WESTERGREN (test code = SEDW) 8 mm/hr 0-20 N SED [id number] 01:32:00* Test Item Value Reference Range Interpretation Comments SED RATE (test code = SEDW) 8 mm/hr 0-20 WINTROBE METHOD: NORMAL RANGE FOR MEN: 0-9 MM/HR WOMAN: 0-20 MM/HR [id number] VINAYAK- CTA [id number] 22:30:00 Name: ANGELA ESPINOSA [facility] : 1975 Age/S: 43 / F [address] [facility] Unit #: [id number] [place]: [place] [address] Phys: Alexander Oviedo MD Acct: [id number] Dis Date: Status: ADM IN PHONE #: [phone] Exam Date: 06/16/2019 220 FAX #: [phone] Reason: PE EXAMS: CPT CODE: [id number] CTA CHEST 27350 EXAM: CTA of the chest with contrast; INFORMATION: Chest pain, PE; TECHNIQUE: CT dose reduction protocol; 1.25 mm cuts were obtained through the chest during intravenous infusion of contrast material; multiplanar reconstructions were obtained; PE protocol; in addition, 3-D angiographic studies were generated on an independent workstation, using volume rendering, maximal intensity projection and transparency algorithms. FINDINGS: The pulmonary arteries are densely enhancing and are without filling defects. The thoracic aorta is normal; no evidence of dissection or aneurysm. No evidence of hilar or mediastinal adenopathy; No effusions. Lung windows show no parenchymal abnormalities, except for mild dependent atelectasis. Scans through the upper abdomen show diffusely decreased attenuation of the hepatic parenchyma. IMPRESSION: 1. No evidence of pulmonary embolism, aortic dissection or other acute abnormalities. 2. Fatty liver. Location code: [facility] Electronically Sign ed by Pillo Mckeon on 06/16/2019 at 2230 Reported and signed by: Ismael Mckeon M.D. CC: Keenan Yuen MD; Vicente Bui MD; Alexander Ortiz MD Technologist:Gian Wu RT(R); NAREN Lewis CTDI: DLP: Trnscb Date/Time: 0 (2229) t.SDR.GRW Orig Print D/T: S: 06/16/2019 (5) PAGE 1 Signed Report B- TYPE NATRIURETIC [id number] 21:53:00* Test Item Value Reference Range Interpretation Comments B-TYPE NATRIURETIC PEPTIDE (test code = BNP) 10.37 pgram/mL 0-100 N Has Patient received Natrecor? NOPROTHROMBIN [id number] 20:17:00* Test Item Value Reference Range Interpretation Comments PROTHROMBIN TIME PATIENT (test code = PTP) 11.8 seconds 9.0-14.0 N INTERNATIONAL NORMAL RATIO (test code = INR) 1.0 0.8-1.2 N The therapeutic range for oral anticoagulant therapy formost indications is an international normalized ratio (INR)of between 2.0 and 3.0. The recommended therapeutic INRrange for various clinical situations is listed below: Clinical Situation INR range Pulmonary e mbolism treatment (2.0-3.0)Venous thrombosis treatmentVenous thrombosis prophylaxis (high risk surgery)Prevention of systemic embolism from: Acute myocardial infarction Valvular heart disease Atrial fibrillation Mechanical prosthetic heart valves (2.5-3.5) THROMBOPLASTIN TIME [id number] 20:17:00* Test Item Value Reference Range Interpretation Comments THROMBOPLASTIN TIME PARTIAL (test code = PTT) 34.8 seconds 25.0-36. 5 N [id number] 20:17:00* Test Item Value Reference Range Interpretation Comments FIBRINOGEN (test code = FIB) 296 mg/dL 200-400 N FIBRIN SPLIT [id number] 20:17:00* Test Item Value Reference Range Interpretation Comments FIBRIN SPLIT PRODUCT (test code = FSP) mcg/mL <5 [id number] 20:17:00* Test Item Value Reference Range Interpretation Comments D-DIMER (test code = DDIMER) 526.00 ng/mLFEU 0-500 HH Results called to [id number] by V.LAB.LT 06/16/19 2016Critical results verified and read back by Nurse? YClinical Cut-off value for D-Dimer is 500 ng/mL FEU. Comment: The [employer] D- Dimer assay is intended for use asan aid in the diagnosis of venous thromboembolism (VTE)[deep vein thrombosis (DVT) or pulmonary embolism (PE)].The measurement of D-Dimer should not be used as an aid inthe diagnosis of VTE, in patient with: -Therapeutic dose anticoagulant therapy for >24 hours - Fibrinolytic therapy within previous 7 days -Trauma or surgery within previous 4 weeks -Disseminated malignancies -Aortic aneurysm -Sepsis, severe infections, pneumonia, severe skin infections -Liver cirrhosis - ANTITHROMBIN III (ATIII)2019-06-16 20:17:00* Test Item Value Reference Range Interpretation Comments ANTITHROMBIN III (ATIII) (test code = AT3) % 75-135 - XR KNEE 3 V [id number] 15:21:00 FAX: Keenan Yuen [phone] [place]: St: ADM FAX: Y Marino Bui [phone] Name: ANGELA ESPINOSA [facility] : 1975 Age/S: 43/F [address] [facility] [address] #: [id number] Loc: V2090 [place] [address] Phys: Keenan Yuen MD Acct: [id number] Dis Date: Status: ADM IN PHONE #: [phone] Exam Date: 06/16/2019 1453 FAX #: [phone] Reason: POSSIBLE INJURY POST FALL EXAMS: CPT CODE: [id number] XR KNEE 3 V LT 21610 EXAM: Left knee, 4 views; INFORMATION: Trauma; knee pain after fall; FINDINGS: Normal shape and structure of the imaged bones; no evidence of fracture or dislocation; no soft ti ssue abnormalities. IMPRESSION: No evidence of acute oss eous trauma or other pathological changes. No radiopaque foreign body. Location code: [facility] at 1521 Reported and signed by: Ismael Mckeon M.D. CC: Keenan Yuen MD; Vicente Bui MD chnologist: RT JAYESH(R) Trnscrd Date/ Time/By: 06/16/2019 (1521) : By: Dayna Orig Print D/T: S: 06/16/19 20 (2076) PAGE 1 Signed Report - MRA HD W/O [id number] 12:47:00 FAX: Preethi Tavarez [phone] [place]: St: ADM FAX: Keenan Yuen [phone] FAX: Marino Abbott --------- Name: ANGELA ESPINOSA [facility] : 1975 Age/S: 43/F [address] #: [id number] Loc: V.2090 [place] [address] Phys: Keenan Yuen MD Acct: [id number] Dis Date: Status: ADM IN [facility] #: [phone] Exam Date: 06/16/2019 1210 FAX #: [phone] Reason: weakness, slurred speech EXAMS: CPT CODE: [id number] MR Nanci HD W/O CONT 79555 HISTORY: Left- sided paresthesia slurred speech. COMPARISON: None available. Location: [facility]. MRA [place] without contrast: 3-D images. Basilar artery is widely patent. Superior cerebellar art eries are patent. [employer] are widely patent bilaterally. Posterior communicati ng arteries are absent. Anterior communicating artery is patent. Bilateral petrous, cavernous and supraclinoid ICA remains patent. Jaswinder ateral HENNA are widely patent. Both MCA are widely patent. No aneurysm visi ble. IMPRESSION: Patent [place] with the exception of posterior communicating arteries. No aneurysm is visibl e. at 1247 Reported and signed by: Shade Alcazar M.D. CC: Preethi Yin MD; Keenan Yuen MD; Vicente Waldrop MD Technologist: An kelli Templeton(R)(MR) Trnscrd Date/Time/By: 06/16 (0912) : By: [email or web address] Orig Print D/T: S: 06/16/2019 (3684) PAGE 1 Signed Report - MRA NECK W WO [id number] 12:40:00 FAX: Preethi Tavarez [phone] [place]: St: ADM FAX: Keenan Yuen [phone] FAX: Marino Abbott [phone] Name: ANGELA ESPINOSA [facility] : 1975 Age/S: 43/F [address] [facility] [address] #: [id number] Loc: V.2090 [place] [address] Phys: Keenan Yuen MD Acct: [id number] Dis Date: Status: ADM IN [facility] #: [phone] Exam Date: 06/16/2019 1211 FAX #: [phone] Reason: weakness, slurred speech EXAMS: CPT CODE: [id number] MR A NECK W WO CONT 90465 HISTORY: Weakn ess and slurred speech. COMPARISON: None available. MRA neck without contrast: 3-D images. Location: [facility]. Note: Motion limited study. Bilateral vertebral arteries are wid sugey patent with left dominance. Bilateral CCA motion limited and appear wi jada patent. Both ICA and ECA are widely patent. IMPRESSIO N: Widely patent bilateral ICA, CCA and ECA and vertebral jazmin benji with left dominance. Motion limited study. Electronical ly Signed by Pillo Alcazar on 06/16/2019 at 1240 Rep orted and signed by: Shade Alcazar M.D. CC: Preethi Yin MD; Keenan Yuen MD; Vicente Bui MD Technologist: Yeimi Mccollum)(MR) Trnscrd Date/Time/By: 06/16/2019 (8628) : By: [email or web address] Orig Print D/T: S: 06/16/2019 (0394) PAGE 1 Signed Report - MRI BRAIN W/O [id number] 12:28:00 FAX: Preethi Tavarez [phone] [place]: St: ADM FAX: Keenan Yuen [phone] FAX: Marino Abbott [phone] Name: ANGELA ESPINOSA [facility] : 1975 Age/S: 43/F [address] [facility] [address] #: [id number] Loc: V.2090 [place] [address] Phys: Keenan Yuen MD Acct: [id number] Dis Date: Status: ADM IN [facility] #: [phone] Exam Date: 06/16/2019 1209 FAX #: [phone] Reason: Syncope and collapse, r/o CVA EXAMS: CPT CODE: [id number] MR I BRAIN W/O CONTRAST 12716 HISTORY: CVA. COMPARISON: Head CT from previous day. MRI brain wit hout contrast: Automated exposure control. Location: [facility]. No acute territorial vascular or acute lacunar infarction is noted. No MR evidence for hemorrhage is noted. No extra-axial fluid collections are noted. No white matter lesions. Mild periventricular white matter ischemic change. No herniation, hydrocephalus or midline shift. Fourth ventricle is midline. Study slightly limited due to motion on the T2-weighted axial sequence. Expected flow-voids visible within the normal limited exam within the major intracranial vasculature. VII and VIII nerve complex are symmetrical and normal. Mastoid air cells are clear. Sinuses de monstrated polyp within the left sphenoid sinus. Intraorbital contents are normal. Midbrain, tamia and medulla are without mass effect. No ce rebellar ectopia. Pituitary gland, optic chiasm and corpus callosum are no rmal. Clivus demonstrated normal marrow signal. Symmetrical hippocampi. No mesial temporal sclerosis. No parenchymal mass on this noncontrast exam. IMPRESSION: No acute territorial vascula r or acute lacunar infarct. at 1228 Reported and signed by: Shade ward M.D. CC: Preethi Yin MD; Keenan Yuen MD; Vicente Bui MD echnologist: Yeimi Templeton(R)(MR) Trnscrd Date /Time/By: 06/16/2019 (1228) : By: [email or web address] Orig Print D/T: S: 020 (9310) PAGE 1 Signed Report URINALYSIS [id number] 10:17:00* Test Item Value Reference Range Interpretation Comments UA COLOR (test code = COLU) YELLOW YELLOW UA APPEARANCE (test code = APPU) Cloudy CLEAR A UA GLUCOSE DIPSTICK (test code = DGLUU) NEGATIVE mg/dL NEGATIVE UA BILIRUBIN DIPSTICK (test code = BILU) NEGATIVE mg/dL NEGATIVE UA KETONE DIPSTICK (test code = KETU) TRACE mg/dL NEGATIVE A UA SPECIFIC GRAVITY (test code = SGU) 1.022 1.001-1.035 UA BLOOD DIPSTICK (test code = MAT) Negative mg/dL NEGATIVE UA PH DIPSTICK (test code = CHARISMA) 6.5 5.0-8.0 UA PROTEIN DIPSTICK (test code = PROU) NEGATIVE mg/dL NEGATIVE UA UROBILINIOGEN DIPSTICK (test code = URO) 2.0 (1+) mg/dL NEGATIVE A UA NITRITE DIPSTICK (test code = MANDI) POSITIVE NEGATIVE A UA LEUKOCYTE ESTERASE W REFLEX (test code = LEUUR) 25 Rah/uL (Trace) Rah/uL NEGATIVE A UA WBC (test code = WBCU) 11-20 per HPF 0-5 A UA WBC CLUMPS (test code = WBCUCL) <1 /HPF NONE UA EPITHELIAL CELLS (test code = EPIU) MODERATE per HPF FEW UA BACTERIA (test code = BACU) LOADED #/HPF NONE UA MUCUS (test code = MUCU) MANY #/LPF FEW A Urine Source? Clean Catch DRUGS OF ABUSE SCREEN [id number] 10:17:00* Test Item Value Reference Range Interpretation Comments URN COCAINE (test code = COCAURN) NEGATIVE <300 ng/mL URN CANNABINOIDS (test code = CANNABURN) POSITIVE <50 ng/mL A This test provides only a preliminary test result. A morespecific alternate chemical method must be used in order toobtain a confirmed analytical result. Gas chromatography/mass spectrometry (GC/MS) is thepreferred confirmatory method. Other chemical confirmationmethods are available. Clinical consideration and professional judgment should be applied to any drug of abusetest result, particularly when preliminary positive resultsare used.Unconfirmed screening results must not be used fornon-medical purposes (e.g., employment testing, legaltesting). URN AMPHETAMINE (test code = AMPHETURN) NEGATIVE <1000 ng/mL URN BARBITURATE (test code = BARBITURN) NEGATIVE <200 ng/mL URN BENZODIAZEPINE (test code = BENZOURN) POSITIVE <200 ng/mL A This test provides only a preliminary test result. A morespecific alternate chemical method must be used in order toobtain a confirmed analytical result. Gas chromatography/mass spectrometry (GC/MS) is thepreferred confirmatory method. Other chemical confirmationmethods are available. Clinical consideration and professional judgment should be applied to any drug of abusetest result, particularly when preliminary positive resultsare used.Unconfirmed screening results must not be used fornon-medical purposes (e.g., employment testing, legaltesting). URN OPIATES (test code = OPIATURN) NEGATIVE <300 ng/mL URN PHENCYCLIDINE (PCP) (test code = PHENCURN) NEGATIVE <25 ng/ mL URN METHADONE (test code = METHAURN) NEGATIVE <300 ng/mL Urine Source? Clean Catch URINALYSIS [id number] 10:14:00* Test Item Value Reference Range Interpretation Comments UA COLOR (test code = COLU) YELLOW YELLOW UA APPEARANCE (test code = APPU) Cloudy CLEAR A UA GLUCOSE DIPSTICK (test code = DGLUU) NEGATIVE mg/dL NEGATIVE UA BILIRUBIN DIPSTICK (test code = BILU) NEGATIVE mg/dL NEGATIVE UA KETONE DIPSTICK (test code = KETU) TRACE mg/dL NEGATIVE A UA SPECIFIC GRAVITY (test code = SGU) 1.022 1.001-1.035 UA BLOOD DIPSTICK (test code = MAT) Negative mg/dL NEGATIVE UA PH DIPSTICK (test code = CHARISMA) 6.5 5.0-8.0 UA PROTEIN DIPSTICK (test code = PROU) NEGATIVE mg/dL NEGATIVE UA UROBILINIOGEN DIPSTICK (test code = URO) 2.0 (1+) mg/dL NEGATIVE A UA NITRITE DIPSTICK (test code = MANDI) POSITIVE NEGATIVE A UA LEUKOCYTE ESTERASE W REFLEX (test code = LEUUR) 25 Rah/uL (Trace) Rah/uL NEGATIVE A UA WBC (test code = WBCU) per HPF 0-5 UA RBC (test code = RBCU) per HPF 0-5 UA EPITHELIAL CELLS (test code = EPIU) per HPF Few UA BACTERIA (test code = BACU) per HPF NONE Urine Source? Clean Catch DRUGS OF ABUSE SCREEN [id number] 10:14:00* Test Item Value Reference Range Interpretation Comments URN COCAINE (test code = COCAURN) NEGATIVE <300 ng/mL URN CANNABINOIDS (test code = CANNABURN) POSITIVE <50 ng/mL A This test provides only a preliminary test result. A morespecific alternate chemical method must be used in order toobtain a confirmed analytical result. Gas chromatography/mass spectrometry (GC/MS) is thepreferred confirmatory method. Other chemical confirmationmethods are available. Clinical consideration and professional judgment should be applied to any drug of abusetest result, particularly when preliminary positive resultsare used.Unconfirmed screening results must not be used fornon-medical purposes (e.g., employment testing, legaltesting). URN AMPHETAMINE (test code = AMPHETURN) NEGATIVE <1000 ng/mL URN BARBITURATE (test code = BARBITURN) NEGATIVE <200 ng/mL URN BENZODIAZEPINE (test code = BENZOURN) POSITIVE <200 ng/mL A This test provides only a preliminary test result. A morespecific alternate chemical method must be used in order toobtain a confirmed analytical result. Gas chromatography/mass spectrometry (GC/MS) is thepreferred confirmatory method. Other chemical confirmationmethods are available. Clinical consideration and professional judgment should be applied to any drug of abusetest result, particularly when preliminary positive resultsare used.Unconfirmed screening results must not be used fornon-medical purposes (e.g., employment testing, legaltesting). URN OPIATES (test code = OPIATURN) NEGATIVE <300 ng/mL URN PHENCYCLIDINE (PCP) (test code = PHENCURN) NEGATIVE <25 ng/ mL URN METHADONE (test code = METHAURN) NEGATIVE <300 ng/mL Urine Source? Clean Catch URINALYSIS [id number] 09:51:00* Test Item Value Reference Range Interpretation Comments UA COLOR (test code = COLU) YELLOW YELLOW UA APPEARANCE (test code = APPU) Cloudy CLEAR A UA GLUCOSE DIPSTICK (test code = DGLUU) NEGATIVE mg/dL NEGATIVE UA BILIRUBIN DIPSTICK (test code = BILU) NEGATIVE mg/dL NEGATIVE UA KETONE DIPSTICK (test code = KETU) TRACE mg/dL NEGATIVE A UA SPECIFIC GRAVITY (test code = SGU) 1.022 1.001-1.035 UA BLOOD DIPSTICK (test code = MAT) Negative mg/dL NEGATIVE UA PH DIPSTICK (test code = CHARISMA) 6.5 5.0-8.0 UA PROTEIN DIPSTICK (test code = PROU) NEGATIVE mg/dL NEGATIVE UA UROBILINIOGEN DIPSTICK (test code = URO) 2.0 (1+) mg/dL NEGATIVE A UA NITRITE DIPSTICK (test code = MANDI) POSITIVE NEGATIVE A UA LEUKOCYTE ESTERASE W REFLEX (test code = LEUUR) 25 Rah/uL (Trace) Rah/uL NEGATIVE A UA WBC (test code = WBCU) per HPF 0-5 UA RBC (test code = RBCU) per HPF 0-5 UA EPITHELIAL CELLS (test code = EPIU) per HPF Few UA BACTERIA (test code = BACU) per HPF NONE Urine Source? Clean Catch DRUGS OF ABUSE SCREEN [id number] 09:51:00* Test Item Value Reference Range Interpretation Comments URN COCAINE (test code = COCAURN) <300 ng/mL URN CANNABINOIDS (test code = CANNABURN) <50 ng/mL URN AMPHETAMINE (test code = AMPHETURN) <1000 ng/mL URN BARBITURATE (test code = BARBITURN) <200 ng/mL URN BENZODIAZEPINE (test code = BENZOURN) <200 ng/mL URN OPIATES (test code = OPIATURN) <300 ng/mL URN PHENCYCLIDINE (PCP) (test code = PHENCURN) <25 ng/ mL URN METHADONE (test code = METHAURN) <300 ng/mL Urine Source? Clean Catch [id number] 07:02:00* Test Item Value Reference Range Interpretation Comments GLUBED (test code = GLUBED) 80 mg/dL 65-110 N BASIC METABOLIC [id number] 06:14:00* Test Item Value Reference Range Interpretation Comments SODIUM (test code = NA) 141 mmol/L 136-145 N POTASSIUM (test code = K) 3.6 mmol/L 3.5-5.1 N CHLORIDE (test code = CL) 109.0 mmol/L 98-107 H CARBON DIOXIDE (test code = CO2) 26.0 mmol/L 21-32 N ANION GAP (test code = GAP) 9.6 10-20 L GLUCOSE (test code = GLU) 89 mg/dL 74-106 N BLOOD UREA NITROGEN (test code = BUN) 13 mg/dL 7-18 N GLOMERULAR FILTRATION RATE (test code = GFR) > 60 mL/min >=60 Estimated GFR by using Modified MDRD formula.Chronic kidney disease is defined as either kidney damageor GFR <60 mL/min/1.73 m2 for >3 months. CREATININE (test code = CREAT) 0.80 mg/dL 0.55-1.02 N Note change in reference range due to change in reagent. BUN/CREATININE RATIO (test code = BUN/CREA) 16.3 10-20 N CALCIUM (test code = CA) 8.5 mg/dL 8.5-10.1 N LIPID PROFILE (CORONARY RISK)2019-06-16 06:14:00* Test Item Value Reference Range Interpretation Comments TRIGLYCERIDES (test code = TRIG) 210 mg/dL 20-150 H CHOLESTEROL (test code = CHOL) 195 mg/dL 0-200 N CHOLESTEROL/HDL RATIO (test code = CHOLHDL) 4.0 RATIO 0-4.9 N RISK ASSOCIATED WITH CHOL/HDL RATIOS: Risk Male Female1/2 AVERAGE 3.43 3.27AVERAGE 4.97 4.442X AVERAGE 9.55 7.053X AVERAGE 23.39 11.04 REFERENCE VALUE IS RELATED TO RISK LEVELS ASRECOMMENDED BY THE MAGDALENE. HEART, LUNG, AND BLOOD INST. HDL CHOLESTEROL (test code = HDL) 44 mg/dL 40-60 N LIPOPROTEIN LDL (test code = LDL) 126 mg/dL 100-129 N RN PERSONNEL, CONTACT PHYSICIAN IMMEDIATELY IF THIS IS A STROKE, AMI OR CAROTID STENOSIS PATIENT WHEN THE LDL >100 (1ST OCCURENCE, THIS ADMISSION) Reference Interval: mg/dL mmol/L Optimal <100 <2.6Near/above optimal 100-129 2.6- 3.3Borderline High 130-159 3.4-4.1High 160-189 4.1-4.9Very High >=190 >=4.9========= This LDL result is a direct measurement.========= BASIC METABOLIC [id number] 05:54:00* Test Item Value Reference Range Interpretation Comments SODIUM (test code = NA) 141 mmol/L 136-145 N POTASSIUM (test code = K) 3.6 mmol/L 3.5-5.1 N CHLORIDE (test code = CL) 109.0 mmol/L 98-107 H CARBON DIOXIDE (test code = CO2) mmol/L 21-32 ANION GAP (test code = GAP) 10-20 GLUCOSE (test code = GLU) mg/dL 74-106 BLOOD UREA NITROGEN (test code = BUN) mg/dL 7-18 GLOMERULAR FILTRATION RATE (test code = GFR) mL/min >=60 CREATININE (test code = CREAT) mg/dL 0.55-1.02 BUN/CREATININE RATIO (test code = BUN/CREA) 10-20 CALCIUM (test code = CA) mg/dL 8.5-10.1 LIPID PROFILE (CORONARY RISK)2019-06-16 05:54:00* Test Item Value Reference Range Interpretation Comments TRIGLYCERIDES (test code = TRIG) mg/dL 20-150 CHOLESTEROL (test code = CHOL) mg/dL 0-200 CHOLESTEROL/HDL RATIO (test code = CHOLHDL) RATIO 0-4.9 HDL CHOLESTEROL (test code = HDL) mg/dL 40-60 LIPOPROTEIN LDL (test code = LDL) mg/dL 100-129 CBC W/AUTO [id number] 05:32:00* Test Item Value Reference Range Interpretation Comments WHITE BLOOD CELL (test code = WBC) 4.9 K/mm3 4.5-12.5 N RED BLOOD CELL (test code = RBC) 4.66 mill/mm3 3.7-5.2 N HEMOGLOBIN (test code = HGB) 13.8 gram/dL 11.5-15.5 N HEMATOCRIT (test code = HCT) 40.2 % 36.0-46.0 N MEAN CELL VOLUME (test code = MCV) 86.3 fL 80-98 N MEAN CELL HGB (test code = MCH) 29.6 picogram 27.0-33.0 N MEAN CELL HGB CONCETRATION (test code = MCHC) 34.3 gram/dL 33.0-36. 0 N RED CELL DISTRIBUTION WIDTH (test code = RDW) 13.4 % 11.6-16. 2 N RED CELL DISTRIBUTION WIDTH SD (test code = RDW-SD) 42.3 fL 37 .0-51.0 N PLATELET COUNT (test code = PLT) 246 K/mm3 150-450 N MEAN PLATELET VOLUME (test code = MPV) 9.3 fL 6.7-11.0 N NEUTROPHIL % (test code = NT%) 53.3 % 39.0-69.0 N IMMATURE GRANULOCYTE % (test code = IG%) 0.4 % 0.0-5.0 N LYMPHOCYTE % (test code = LY%) 35.0 % 25.0-55.0 N MONOCYTE % (test code = MO%) 7.5 % 0.0-10.0 N EOSINOPHIL % (test code = EO%) 3.2 % 0.0-5.0 N BASOPHIL % (test code = BA%) 0.6 % 0.0-1.0 N NUCLEATED RBC % (test code = NRBC%) 0.0 % 0-0 N NEUTROPHIL # (test code = NT#) 2.63 K/mm3 1.8-7.7 N IMMATURE GRANULOCYTE # (test code = IG#) 0.02 x10 3/uL 0-0.03 N LYMPHOCYTE # (test code = LY#) 1.73 K/mm3 1.0-5.0 N MONOCYTE # (test code = MO#) 0.37 K/mm3 0-0.8 N EOSINOPHIL # (test code = EO#) 0.16 K/mm3 0.0-0.5 N BASOPHIL # (test code = BA#) 0.03 K/mm3 0.0-0.2 N NUCLEATED RBC # (test code = NRBC#) 0.00 K/mm3 0.0-0.1 N MANUAL DIFF REQUIRED (test code = MDIFF) NO [id number] 00:50:00* Test Item Value Reference Range Interpretation Comments TROPONIN-I (test code = TROPI) <0.015 ng/mL 0-0.045 N [id number] 19:37:00* Test Item Value Reference Range Interpretation Comments TROPONIN-I (test code = TROPI) <0.015 ng/mL 0-0.045 N COMPREHENSIVE METABOLIC [id number] 17:02:00* Test Item Value Reference Range Interpretation Comments SODIUM (test code = NA) 141 mmol/L 136-145 N POTASSIUM (test code = K) 3.8 mmol/L 3.5-5.1 N CHLORIDE (test code = CL) 109.0 mmol/L 98-107 H CARBON DIOXIDE (test code = CO2) 26.0 mmol/L 21-32 N ANION GAP (test code = GAP) 9.8 10-20 L GLUCOSE (test code = GLU) 82 mg/dL 74-106 N BLOOD UREA NITROGEN (test code = BUN) 9 mg/dL 7-18 N GLOMERULAR FILTRATION RATE (test code = GFR) > 60 mL/min >=60 Estimated GFR by using Modified MDRD formula.Chronic kidney disease is defined as either kidney damageor GFR <60 mL/min/1.73 m2 for >3 months. CREATININE (test code = CREAT) 0.70 mg/dL 0.55-1.02 N Note change in reference range due to change in reagent. BUN/CREATININE RATIO (test code = BUN/CREA) 12.9 10-20 N TOTAL PROTEIN (test code = PROT) 6.4 gram/dL 6.4-8.2 N ALBUMIN (test code = ALB) 3.1 g/dL 3.4-5.0 L GLOBULIN (test code = GLOB) 3.3 gram/dL 2.7-4.2 N ALBUMIN/GLOBULIN RATIO (test code = A/G) 0.9 0.75-1.50 N CALCIUM (test code = CA) 8.5 mg/dL 8.5-10.1 N BILIRUBIN TOTAL (test code = BILT) 0.40 mg/dL 0.0-1.0 N SGOT/AST (test code = AST) 20 IUnit/L 15-37 N SGPT/ALT (test code = ALT) 43 IUnit/L 12-78 N ALKALINE PHOSPHATASE TOTAL (test code = ALKP) 97 IUnit/L 45-117 N Note change in reference range due to change in reagent. [id number] 17:02:00* Test Item Value Reference Range Interpretation Comments MAGNESIUM (test code = MAG) 2.0 mg/dL 1.8-2.4 N THYROID STIMULATING [id number] 17:02:00* Test Item Value Reference Range Interpretation Comments THYROID STIMULATING HORMONE (test code = TSH) 0.777 uIU/mL 0.36-3.7 4 N TSH REFERENCE RANGES: EUTHYROID: 0.35 - 4.3 mIU/mL HYPO : > 5.5 mIU/mL HYPER : < 0.35 mIU/mL [id number] 16:53:00* Test Item Value Reference Range Interpretation Comments TROPONIN-I (test code = TROPI) <0.015 ng/mL 0-0.045 N [id number] 16:51:00* Test Item Value Reference Range Interpretation Comments GLYCOSYLATED HEMOGLOBIN (HA1C) (test code = GLYHGB) 5.4 % HbA1 SUGGESTED DIAGNOSIS: HbA1C (%) Diabetic >6.4Prediabetes 5.7 - 6.4Normal <5.7 ESTIMATED AVERAGE GLUCOSE (test code = EAG) 108 MG/DL COMPREHENSIVE METABOLIC [id number] 16:50:00* Test Item Value Reference Range Interpretation Comments SODIUM (test code = NA) 141 mmol/L 136-145 N POTASSIUM (test code = K) 3.8 mmol/L 3.5-5.1 N CHLORIDE (test code = CL) 109.0 mmol/L 98-107 H CARBON DIOXIDE (test code = CO2) mmol/L 21-32 ANION GAP (test code = GAP) 10-20 GLUCOSE (test code = GLU) mg/dL 74-106 BLOOD UREA NITROGEN (test code = BUN) mg/dL 7-18 GLOMERULAR FILTRATION RATE (test code = GFR) mL/min >=60 CREATININE (test code = CREAT) mg/dL 0.55-1.02 BUN/CREATININE RATIO (test code = BUN/CREA) 10-20 TOTAL PROTEIN (test code = PROT) gram/dL 6.4-8.2 ALBUMIN (test code = ALB) g/dL 3.4-5.0 GLOBULIN (test code = GLOB) gram/dL 2.7-4.2 ALBUMIN/GLOBULIN RATIO (test code = A/G) 0.75-1.50 CALCIUM (test code = CA) mg/dL 8.5-10.1 BILIRUBIN TOTAL (test code = BILT) mg/dL 0.0-1.0 SGOT/AST (test code = AST) IUnit/L 15-37 SGPT/ALT (test code = ALT) IUnit/L 12-78 ALKALINE PHOSPHATASE TOTAL (test code = ALKP) IUnit/L 45-117 [id number] 16:50:00* Test Item Value Reference Range Interpretation Comments MAGNESIUM (test code = MAG) mg/dL 1.8-2.4 THYROID STIMULATING [id number] 16:50:00* Test Item Value Reference Range Interpretation Comments THYROID STIMULATING HORMONE (test code = TSH) uIU/mL 0.36-3.7 4 PROTHROMBIN [id number] 16:43:00* Test Item Value Reference Range Interpretation Comments PROTHROMBIN TIME PATIENT (test code = PTP) 12.1 seconds 9.0-14.0 N INTERNATIONAL NORMAL RATIO (test code = INR) 1.0 0.8-1.2 N The therapeutic range for oral anticoagulant therapy formost indications is an international normalized ratio (INR)of between 2.0 and 3.0. The recommended therapeutic INRrange for various clinical situations is listed below: Clinical Situation INR range Pulmonary e mbolism treatment (2.0-3.0)Venous thrombosis treatmentVenous thrombosis prophylaxis (high risk surgery)Prevention of systemic embolism from: Acute myocardial infarction Valvular heart disease Atrial fibrillation Mechanical prosthetic heart valves (2.5-3.5) IS PATIENT ON ANTICOAGULANTS? NTHROMBOPLASTIN TIME [id number] 16:43:00* Test Item Value Reference Range Interpretation Comments THROMBOPLASTIN TIME PARTIAL (test code = PTT) 36.0 seconds 25.0-36. 5 N IS PATIENT ON ANTICOAGULANTS? NCBC W/AUTO [id number] 16:29:00* Test Item Value Reference Range Interpretation Comments WHITE BLOOD CELL (test code = WBC) 5.9 K/mm3 4.5-12.5 N RED BLOOD CELL (test code = RBC) 4.63 mill/mm3 3.7-5.2 N HEMOGLOBIN (test code = HGB) 13.6 gram/dL 11.5-15.5 N HEMATOCRIT (test code = HCT) 39.9 % 36.0-46.0 N MEAN CELL VOLUME (test code = MCV) 86.2 fL 80-98 N MEAN CELL HGB (test code = MCH) 29.4 picogram 27.0-33.0 N MEAN CELL HGB CONCETRATION (test code = MCHC) 34.1 gram/dL 33.0-36. 0 N RED CELL DISTRIBUTION WIDTH (test code = RDW) 13.3 % 11.6-16. 2 N RED CELL DISTRIBUTION WIDTH SD (test code = RDW-SD) 41.4 fL 37 .0-51.0 N PLATELET COUNT (test code = PLT) 253 K/mm3 150-450 N MEAN PLATELET VOLUME (test code = MPV) 9.3 fL 6.7-11.0 N NEUTROPHIL % (test code = NT%) 60.1 % 39.0-69.0 N IMMATURE GRANULOCYTE % (test code = IG%) 0.2 % 0.0-5.0 N LYMPHOCYTE % (test code = LY%) 31.0 % 25.0-55.0 N MONOCYTE % (test code = MO%) 5.9 % 0.0-10.0 N EOSINOPHIL % (test code = EO%) 2.5 % 0.0-5.0 N BASOPHIL % (test code = BA%) 0.3 % 0.0-1.0 N NUCLEATED RBC % (test code = NRBC%) 0.0 % 0-0 N NEUTROPHIL # (test code = NT#) 3.57 K/mm3 1.8-7.7 N IMMATURE GRANULOCYTE # (test code = IG#) 0.01 x10 3/uL 0-0.03 N LYMPHOCYTE # (test code = LY#) 1.84 K/mm3 1.0-5.0 N MONOCYTE # (test code = MO#) 0.35 K/mm3 0-0.8 N EOSINOPHIL # (test code = EO#) 0.15 K/mm3 0.0-0.5 N BASOPHIL # (test code = BA#) 0.02 K/mm3 0.0-0.2 N NUCLEATED RBC # (test code = NRBC#) 0.00 K/mm3 0.0-0.1 N MANUAL DIFF REQUIRED (test code = MDIFF) NO - XR CHEST 2 [id number] 14:38:00 FAX: Preethi Tavarez [phone] [place]: [address]: ADM FAX: Marino Abbtot [phone] FAX: Jocelin Cespedes NP Name: ANGELA ESPINOSA [facility] : 1975 Age/S: 43/F [address] [facility] Unit #: [id number] Loc: V.[address] [place] [address] Phys: [email or web address] CANO Acct: [id number] Dis Date: Status: ADM IN ONE #: [phone] Exam Date: 06/15/2019 1422 FAX #: [phone] Reason: Syncope and collapse, r/o CVA; Chest pain EXAMS: CPT CODE: [id number] XR CHEST 2 V 64920 EXAM: Chest X- ray, 2 views; CLINICAL HISTORY: Chest pain; FINDINGS : Except for mild basilar atelectatic changes, the lungs are clear, no infiltrates, no edema; no effusions; no pneumothorax; normal ca rdiomediastinal silhouette. IMPRESSION: Mild basilar at electasis; otherwise, no evidence of active cardiopulmonary disease. Location code: [facility] at 1438 Reported and signed by: Ismael Mckeon M.D. CC: Preethi Yin MD; Vicente Bui MD; Jocelin Cespedes NP Techno logist: HATTIE KEY RT (R) Trnscrd Date/Time /By: 06/15/2019 (1438) : By: Dayna Orig Print D/T: S: 06/16/2019 ( 0823) PAGE 1 Signed Report DRUGS OF ABUSE [id number] 10:12:00* Test Item Value Reference Range Interpretation Comments UR COCAINE (test code = COCAU) NEGATIVE NEGATIVE DETECTION CUT OFF: 150 ng/mL UR CANNABINOIDS (test code = CANU) POSITIVE NEGATIVE A RESULTS CALLED TO JORGE.READ BACK & CONFIRMED? YES.BY F.[facility] 06/15/19 1012. DETECTION CUT OFF: 50 ng/mL UR AMPHETAMINE (test code = AMPHU) NEGATIVE NEGATIVE DETECTION CUT OFF: 500 ng/mL UR BARBITURATE QUAL (test code = BARBQLU) NEGATIVE NEGATIVE DETECTION CUT OFF: 200 ng/mL UR BENZODIAZEPINE (test code = BENZU) POSITIVE NEGATIVE A RESULTS CALLED TO JORGE.READ BACK & CONFIRMED? YES.BY [facility] 06/15/19 1012. DETECTION CUT OFF: 150 ng/mL UR OPIATES QUAL (test code = OPIAQLU) NEGATIVE NEGATIVE DETECTION CUT OFF: 100 ng/mL UR PHENCYCLIDINE (PCP) (test code = PHENCU) NEGATIVE NEGATIVE DETECTION CUT OFF: 25 ng/mL Specimen Comment: CLEAN CATCH. COMPREHENSIVE METABOLIC [id number] 10:12:00 * Test Item Value Reference Range Interpretation Comments SODIUM (test code = NA) 140 mEq/L 135-145 N POTASSIUM (test code = K) 3.9 mEq/L 3.5-5.0 N CHLORIDE (test code = CL) 104 mEq/L 100-115 N CARBON DIOXIDE (test code = CO2) 26 mEq/L 22-31 N ANION GAP (test code = GAP) 14.00 10-20 N GLUCOSE (test code = GLU) 93 mg/dL 65-110 N BLOOD UREA NITROGEN (test code = BUN) 10 mg/dL 7-18 N GLOMERULAR FILTRATION RATE (test code = GFR) 79 ml/min >60 N CREATININE (test code = CREAT) 0.8 mg/dL 0.5-1.0 N TOTAL PROTEIN (test code = PROT) 6.9 gm/dL 6.3-8.2 N ALBUMIN (test code = ALB) 3.5 gm/dL 3.4-4.8 N CALCIUM (test code = CA) 8.6 mg/dL 8.4-10.2 N BILIRUBIN TOTAL (test code = BILT) 0.4 mg/dL 0.2-1.0 N SGOT/AST (test code = AST) 26 units/L 15-37 N SGPT/ALT (test code = ALT) 48 units/L 12-78 N ALKALINE PHOSPHATASE TOTAL (test code = ALKP) 107 units/L 46-116 N [id number] 10:12:00* Test Item Value Reference Range Interpretation Comments TROPONIN-I (test code = TROPI) <0.017 ng/mL <0.056 N BENZODIAZEPINE [id number] 10:12:00* Test Item Value Reference Range Interpretation Comments OXAZEPAM (test code = OXAZ) TEMAZEPAM (test code = CLAUDE) FLURAZEPAM (test code = FLUR) UA RFLX MICR CULT IF [id number] 10:07:00* Test Item Value Reference Range Interpretation Comments UA COLOR (test code = COLU) YELLOW YELLOW UA APPEARANCE (test code = APPU) HAZY CLEAR UA GLUCOSE DIPSTICK (test code = DGLUU) NEGATIVE NEGATIVE UA BILIRUBIN DIPSTICK (test code = BILU) NEGATIVE NEGATIVE UA KETONE DIPSTICK (test code = KETU) NEGATIVE NEGATIVE UA SPECIFIC GRAVITY (test code = SGU) 1.020 1.001-1.035 N UA BLOOD DIPSTICK (test code = MAT) NEG NEGATIVE UA PH DIPSTICK (test code = CHARISMA) 7.0 5-9 UA PROTEIN DIPSTICK (test code = PROU) NEGATIVE NEGATIVE UA UROBILINIOGEN DIPSTICK (test code = URO) 1.0 EU/dL <=1.0 UA NITRITE DIPSTICK (test code = MANDI) POSITIVE NEGATIVE A UA LEUKOCYTE ESTERASE DIPSTICK (test code = LEUU) 3+ NEGA TIVE A UA WBC (test code = WBCU) 6-10 #/hpf NONE SEEN A UA RBC (test code = RBCU) 5-10 #/hpf NONE SEEN A UA EPITHELIAL CELLS (test code = EPIU) FEW #/HPF RARE-FEW UA BACTERIA (test code = BACU) MANY #/hpf NONE SEEN A UA YEAST (test code = YEASTU) FEW #/hpf NONE SEEN A Specimen Comment: 3Indication for culture: Suprapubic PainCOMPREHENSIVE METABOLIC [id number] 10:06:00* Test Item Value Reference Range Interpretation Comments SODIUM (test code = NA) 140 mEq/L 135-145 N POTASSIUM (test code = K) 3.9 mEq/L 3.5-5.0 N CHLORIDE (test code = CL) 104 mEq/L 100-115 N CARBON DIOXIDE (test code = CO2) 26 mEq/L 22-31 N ANION GAP (test code = GAP) 14.00 10-20 N GLUCOSE (test code = GLU) 93 mg/dL 65-110 N BLOOD UREA NITROGEN (test code = BUN) 10 mg/dL 7-18 N GLOMERULAR FILTRATION RATE (test code = GFR) 79 ml/min >60 N CREATININE (test code = CREAT) 0.8 mg/dL 0.5-1.0 N TOTAL PROTEIN (test code = PROT) 6.9 gm/dL 6.3-8.2 N ALBUMIN (test code = ALB) 3.5 gm/dL 3.4-4.8 N CALCIUM (test code = CA) 8.6 mg/dL 8.4-10.2 N BILIRUBIN TOTAL (test code = BILT) 0.4 mg/dL 0.2-1.0 N SGOT/AST (test code = AST) 26 units/L 15-37 N SGPT/ALT (test code = ALT) 48 units/L 12-78 N ALKALINE PHOSPHATASE TOTAL (test code = ALKP) 107 units/L 46-116 N [id number] 10:06:00* Test Item Value Reference Range Interpretation Comments TROPONIN-I (test code = TROPI) <0.017 ng/mL <0.056 N PROTHROMBIN [id number] 10:06:00* Test Item Value Reference Range Interpretation Comments PROTHROMBIN TIME PATIENT (test code = PTP) 11.6 secs 10.4-12.4 N IS PATIENT ON ANTICOAGULANTS ? NINTERNATIONAL NORMAL [id number] 10:06:00* Test Item Value Reference Range Interpretation Comments INTERNATIONAL NORMAL RATIO (test code = INR) 1.05 The INR is to be used only for monitoring oral anticoagulanttherapy. INDICATION INR VALUE 1. Prophylaxis including high risk surgery 2.0 - 2.52. Deep venous thrombosis. Pulmonary embolism. Atrial fibrillation or bioprosthetic heart valves 2.0 - 3.03. Mechanical heart valves or recurrent systemic embolism. 3.0 - 3.5 IS PATIENT ON ANTICOAGULANTS ? NTHROMBOPLASTIN TIME [id number] 10:06:00* Test Item Value Reference Range Interpretation Comments THROMBOPLASTIN TIME PARTIAL (test code = PTT) 40.9 secs 22-38 H IS PATIENT ON ANTICOAGULANTS ? ND-DIMER [id number] 10:06:00* Test Item Value Reference Range Interpretation Comments D-DIMER QUANT (test code = DDIMER) <200 ng/mLDDU <255 Reference Range in : <570 ng/mlA positive test does not provide a definitive diagnosis ofDVT and indicates the need for follow up clinical studies. The predictive value of a negative test is 98% for rulingout DVT. IS PATIENT ON ANTICOAGULANTS ? [id number] 10:03:00* Test Item Value Reference Range Interpretation Comments ALCOHOL (test code = ALC) 0 mg/dL < 3 TH IS RESULT IS FOR MEDICAL PURPOSES ONLY The pharmacological response to blood alcohol levels mayvary from individual to individual. Signs of intoxicationcan be observed at levels of 50-100 mg/dL UA RFLX MICR CULT IF [id number] 09:57:00* Test Item Value Reference Range Interpretation Comments UA COLOR (test code = COLU) YELLOW YELLOW UA APPEARANCE (test code = APPU) HAZY CLEAR UA GLUCOSE DIPSTICK (test code = DGLUU) NEGATIVE NEGATIVE UA BILIRUBIN DIPSTICK (test code = BILU) NEGATIVE NEGATIVE UA KETONE DIPSTICK (test code = KETU) NEGATIVE NEGATIVE UA SPECIFIC GRAVITY (test code = SGU) 1.020 1.001-1.035 N UA BLOOD DIPSTICK (test code = MAT) NEG NEGATIVE UA PH DIPSTICK (test code = CHARISMA) 7.0 5-9 UA PROTEIN DIPSTICK (test code = PROU) NEGATIVE NEGATIVE UA UROBILINIOGEN DIPSTICK (test code = URO) 1.0 EU/dL <=1.0 UA NITRITE DIPSTICK (test code = MANDI) POSITIVE NEGATIVE A UA LEUKOCYTE ESTERASE DIPSTICK (test code = LEUU) 3+ NEGA TIVE A UA WBC (test code = WBCU) #/hpf NONE SEEN UA EPITHELIAL CELLS (test code = EPIU) #/HPF RARE-FEW Specimen Comment: 3Indication for culture: Suprapubic Pain- CT HEAD/BRAIN W/O [id number] 09:51:00 Patient Name: ISMAEL ESPINOSALICA Unit No: [id number] EXAMS: CPT CODE: [id number] CT HEAD/BRAIN W/O CONT 19579 STUDY: - CT HEAD/BRAIN W/O CONT 06/15/2019 9:19 AM Ordering Physician: Leslie Forrest MD Patient Name: ANGELA ESPINOSA MR: [id number] : 1975; Age: 43 years y/o Female Clinical Indication: CODE STROKE Comparison: November 13, 2019 CT head TECHNIQUE: Multiple contiguous transaxial noncontrast CT images were obtained through the head. Coronal and sagittal reformatted images were prepared. DOSE: CT imaging performed at this location utilizes radiation dose optimization technique which includes one or more of the followin) Automated exposure control; 2) Adjustment of the mA and/or kV according to patient's size; 3) Use of iterative reconstruction techniques. DLP (mGy-cm): 904 FINDINGS: BRAIN PARENCHYMA: The brain volume is appropriate for age. No evidence of acute intracranial hemorrhage, mass lesion, mass effect, midline shift, or extra-axial fluid collection. Hypodensity in the right posterior putamen, not seen on the CT from yesterday, is favored to represent a perivascular space. VENTRICLES: The lateral ventricles, third ventricle, fourth ventricle, and basilar cisterns are appropriate for degree of atrophy present. PARANASAL SINUSES: The visualized portions of the paranasal sinuses are clear. MASTOIDS: Clear. ORBITS: The visualized portions of the orbits are normal. SOFT TISSUES: No significant abnormality. SKULL: No acute fracture or suspicious osseous lesion. [facility] NAME: ANGELA ESPINOSA Radiology Department PHYS: 14 - Leslie Forrest MD [address] : 1975 AGE: 43 SEX: F [place], [place] [address] LOC: JessicaLENY Lopes [facility] #: [phone] EXAM DATE: 06/15/2019 STATUS: REG ER FAX #: [phone] RAD NO: Page 1 Sig jack Report 1 Patient Name: ANGELA ESPINOSA Unit No: [id number] EXAMS: CPT CODE: [id number] CT HEAD/BRAIN W/O CONT 58402 <Continued> IMPRESSION: No acute intracranial abnormality. Communication of findings initiated at 9:40 AM 06/15/2019 by telephone. Findings discussed with Dr. Forrest at 9:48 AM 06/15/2019 by telephone. SL: [id number] at 0951 Reported and signed by: Sony Encarnacion MD CC: Vicente Quispe MD; Leslie Forrest MD Technologist: Anni Gaona RT, CT CTDI: 49.75 DLP: 904.25 Trnscrbd D/ (0951) t.SDR.AP24/t.SDR.AP24 [facility] Department PHYS: Leslie Levy MD [address] : 1975 AGE: 43 SEX: F [place] [address] LOC: F.ERS PHONE #: [phone] EXAM DATE: 06/15/2019 STATUS: REG ER FAX #: [phone] RAD NO: Page 2 Signed Report 1 Patient Name: ANGELA ESPINOSA Unit No: [id number] EXAMS: CPT CODE: [id number] CT HEAD/BRAIN W/O CONT 29466 <Continued> Orig Print D/T: S: 06/15/2019 (0954) [facility] Rad[facility] Department PHYS: Leslie Levy MD [address] : 1975 AGE: 43 SEX: F [place] [address] LOC: F.ERS PHONE #: [phone] EXAM DATE: 06/15/2019 STATUS: REG ER FAX #: [phone] RAD NO: Page 3 Si gned Report 1 - XR CHEST 1 [id number] 09:43:00 Patient Name: ANGELA ESPINOSA Unit No: [id number] EXAMS: CPT CODE: [id number] XR CHEST 1 V 82223 CLINICAL HISTORY:CODE S TROKE COMPARISON:June 14, 2019 Frontal film of the chest performed at 0927 on June 15, 2019 demonstrates poor inspiration. Heart size is norm al. Lung blanc are clear. No evidence of pneumonia or congestive failure is seen. IMPRESSION: Poor inspiration otherwise no evidence of pneumonia or congestive failure. Electronically Signed by Erwin Alfonso MD on at 0943 Reported and signed by: Erwin Alfonso MD CC: Vicente Quispe MD; Leslie Forrest MD Technologist: Wilma Quinn, Trnscrbd D/ (0943) tFIONAYOS Orig Print D/T: S: 06/15/2019 (1002) [facility] NAME: ANGELA ESPINOSA Radiology Department PHYS: HETAL - Leslie Forrest MD [address] : 1975 AGE: 43 SEX: F [place], [place] [address] LOC: F.ERS PHONE #: [phone] EXAM MARKUS E: 06/15/2019 STATUS: REG ER FAX #: [phone] RAD NO: Page 1 Signed Report CBC W/AUTO [id number] 09:37:00* Test Item Value Reference Range Interpretation Comments WHITE BLOOD CELL (test code = WBC) 5.9 K/mm3 6.6-12.1 L RED BLOOD CELL (test code = RBC) 4.63 M/mm3 3.45-5.01 N HEMOGLOBIN (test code = HGB) 13.5 g/dL 10.7-13.9 N HEMATOCRIT (test code = HCT) 40.9 % 32.1-42.1 N MEAN CELL VOLUME (test code = MCV) 88 fL 84.1-94.8 N MEAN CELL HGB (test code = MCH) 29.2 pg 27-35 N MEAN CELL HGB CONCETRATION (test code = MCHC) 33.0 gm/dL 32.2-34. 1 N RED CELL DISTRIBUTION WIDTH (test code = RDW) 13.5 % 12.4-16. 5 N PLATELET COUNT (test code = PLT) 259 K/mm3 133-385 N IMMATURE PLATELET FRACTION (test code = IPF) 0.0 % 0.0-10.8 N MEAN PLATELET VOLUME (test code = MPV) 9.2 fl 9.1-12.7 N NEUTROPHIL % (test code = NT%) 66.4 % 56.5-79.4 N LYMPHOCYTE % (test code = LY%) 25.3 % 14.3-34.3 N MONOCYTE % (test code = MO%) 5.2 % 5.1-10.4 N EOSINOPHIL % (test code = EO%) 2.2 % 0.1-3.0 N BASOPHIL % (test code = BA%) 0.7 % 0.1-1.0 N NEUTROPHIL # (test code = NT#) 4.0 K/mm3 LYMPHOCYTE # (test code = LY#) 1.5 K/mm3 MONOCYTE # (test code = MO#) 0.3 K/mm3 EOSINOPHIL # (test code = EO#) 0.13 K/mm3 BASOPHIL # (test code = BA#) 0.0 K/mm3 RBC MORPHOLOGY REQUIRED (test code = RBCM) NORMAL NORMAL PLATELET MORPHOLOGY REQUIRED (test code = PLTMR) NORMAL YOANA L [id number] 15:44:00* Test Item Value Reference Range Interpretation Comments TROPONIN-I (test code = TROPI) <0.015 ng/mL 0-0.045 N [id number] 15:11:00* Test Item Value Reference Range Interpretation Comments GLUBED (test code = GLUBED) 73 mg/dL 74-106 L Performed by certified dry starch operator at [facility] [id number] 12:29:00* Test Item Value Reference Range Interpretation Comments GLUBED (test code = GLUBED) 72 mg/dL 74-106 L Performed by certified dry starch operator at [facility] - CTA [id number] 12:00:00 Name: ANGELA ESPINOSA [facility] : 1975 Age/S: 43 / F [address] [facility] Unit #: [id number] Loc: [place] [address] Phys: Donn Roe MD Acct: [id number] Dis Date: Status: REG ER PHONE #: [phone] Exam Date: 06/14/2019 1120 FAX #: [phone] Reason: L .sided weakness EXAMS: CPT CODE: [id number] CTA NECK 93817 HISTORY: Left-sided weakness. COMPARISON: None available. Note: Suboptimal contrast bolus limits evaluation. CTA NECK: 3-D images NOT available. 100 mL of Isovue-370. Automated exposure control. NASCET criteria. Location: [facility]. Lung apices demonstrating dependent changes. Superior mediastinum is unremarkable. Thyroid glands are unremarkable. No pathologic adenopathy. Patent airway. Symmetrical fossa of Rosenmueller. Intraorbital contents are unremarkable. No abnormal enhancement within the brain. Right side: Subclavian artery is widely patent. Nondominant vertebral artery is patent and small in caliber. CCA is widely patent. ICA and ECA are widely patent. Left side: Subclavian artery is widely patent. Dominant vertebral artery is widely patent. CCA is widely patent. ICA and ECA are widely patent. IMPRESSION: Widely patent bilateral ICA, CCA and ECA without hemodynamically significant stenosis. Patent bilateral vertebral arteries with left dominance. CTA [place]: 3-D images. The basilar artery is widely patent. Both [employer] SUPERVISOR are widely patent. Both superior cerebellar arteries are widely patent. Both posterior communicating arteries are absent. Anterior communicating artery is absent. Bilateral petrous, cavernous and the supraclinoid ICA are widely patent. Both HENNA are widely patent. Both MCA are widely patent. No aneurysm is visible. Dural sinuses are opacified. IMPRESSION: PAGE 1 Signed Report (CONTINUED) Name: ANGELA ESPINOSA [facility] : 1975 Age/S: 43 / F [address] [facility] Unit #: [id number] Loc: [place] [address] Phys: Donn Roe MD Acct: [id number] Dis Date: Status: REG ER PHONE #: [phone] Exam Date: 06/14/2019 1120 FAX #: [phone] Reason: L .sided weakness EXAMS: CPT CODE: [id number] CTA NECK 06651 < Continued> Patent [place] with the exception of anterior posterior communicating arteries which are absent. No aneurysm is visible. at 1200 Reported and signed by: Shade Alcazar M.D. CC: Vicente Bui MD; Donn Roe MD Technologist:Elayne Forrest,RT(R),CT CTDI: DLP: Trnscb Date/Time: 06/14/2019 (1200) t.SDR.TH4 Orig Print D/T: S: 06/14/2019 (4805) PAGE 2 Signed Report - CTA [id number] 12:00:00 Name: ANGELA ESPINOSA [facility] : 1975 Age/S: 43 / F [address] [facility] Unit #: [id number] Loc: [place] [address] Phys: Donn Roe MD Acct: [id number] Dis Date: Status: REG ER PHONE #: [phone] Exam Date: 06/14/2019 1120 FAX #: [phone] Reason: L .sided weakness EXAMS: CPT CODE: [id number] CTA HEAD 21350 HISTORY: Left-sided weakness. COMPARISON: None available. Note: Suboptimal contrast bolus limits evaluation. CTA NECK: 3-D images NOT available. 100 mL of Isovue- 370. Automated exposure control. NASCET criteria. Location: [facility]. Lung apices demonstrating dependent changes. Superior mediastinum is unremarkable. Thyroid glands are unremarkable. No pathologic adenopathy. Patent airway. Symmetrical fossa of [place]. Intraorbital contents are unremarkable. No abnormal enhancement within the brain. Right side: Subclavian artery is widely patent. No ndominant vertebral artery is patent and small in caliber. CCA is widely p atent. ICA and ECA are widely patent. Left side: Subclavian artery is widely patent. Dominant vertebral artery is widely patent. CCA i s widely patent. ICA and ECA are widely patent. IMPRESSION : Widely patent bilateral ICA, CCA and ECA without hemodynamic ally significant stenosis. Patent bilateral vertebral arteries with left dominance. CTA [place]: 3-D images. The basilar artery is widely patent. Both ETHYLBENZ[employer] CRACKING SUPERVISOR are widely pat ent. Both superior cerebellar arteries are widely patent. Both posterior communicating arteries are absent. Anterior communicating artery is absent. Bilateral petrous, cavernous and the supraclinoid ICA are widely patent. Both HENNA are widely patent. Both MCA are widely patent. No aneurysm is visible. Dural sinuses are opacified. IMPRESSION: PAGE 1 Signed Report (CONTINUED) Name: ANGELA ESPINOSA [facility] : 1975 Age/S: 43 / F [facility] Unit #: [id number] Loc: [place] [address] Phys: Donn Roe MD Acct: [id number] Dis Date: Status: REG ER PHONE #: [phone] Exam Date: 06/14/2019 1120 FAX #: [phone] Reason: L .sided weakness EXAMS: CPT CODE: [id number] CTA HEAD [address]22[address] < Continued> Patent [place] with the exception of anterior posterior communicating arteries which are absent. No aneurysm is visible. at 1200 Reported and signed by: Shade Alcazar M.D. CC: Vicente Bui MD; Donn Roe MD Technologist:Elayne Forrest,RT(R),CT CTDI: DLP: Trnscb Date/Time: 06/14/2019 (1200) t.SDR.TH4 Orig Print D/T: S: 06/14/2019 (8248) PAGE 2 Signed Report BASIC METABOLIC [id number] 11:49:00* Test Item Value Reference Range Interpretation Comments SODIUM (test code = NA) 142 mmol/L 136-145 N POTASSIUM (test code = K) 3.9 mmol/L 3.5-5.1 N CHLORIDE (test code = CL) 110.0 mmol/L 98-107 H CARBON DIOXIDE (test code = CO2) 27.0 mmol/L 21-32 N ANION GAP (test code = GAP) 8.9 10-20 L GLUCOSE (test code = GLU) 89 mg/dL 74-106 N BLOOD UREA NITROGEN (test code = BUN) 11 mg/dL 7-18 N GLOMERULAR FILTRATION RATE (test code = GFR) > 60 mL/min >=60 Estimated GFR by using Modified MDRD formula.Chronic kidney disease is defined as either kidney damageor GFR <60 mL/min/1.73 m2 for >3 months. CREATININE (test code = CREAT) 0.80 mg/dL 0.55-1.02 N Note change in reference range due to change in reagent. BUN/CREATININE RATIO (test code = BUN/CREA) 13.8 10-20 N CALCIUM (test code = CA) 9.0 mg/dL 8.5-10.1 N HCG SERUM [id number] 11:49:00* Test Item Value Reference Range Interpretation Comments HCG SERUM QUAL (test code = HCGQL) NEGATIVE NEGATIVE This HCGQL test is NOT applicable for MALE patients.Check with nurse about probable order error.If Tumor Marker Test needed, nurse should order test "HCGTU"(Test #[id number]) [id number] 11:49:00* Test Item Value Reference Range Interpretation Comments TROPONIN-I (test code = TROPI) <0.015 ng/mL 0-0.045 N BASIC METABOLIC [id number] 11:46:00* Test Item Value Reference Range Interpretation Comments SODIUM (test code = NA) 142 mmol/L 136-145 N POTASSIUM (test code = K) 3.9 mmol/L 3.5-5.1 N CHLORIDE (test code = CL) 110.0 mmol/L 98-107 H CARBON DIOXIDE (test code = CO2) 27.0 mmol/L 21-32 N ANION GAP (test code = GAP) 8.9 10-20 L GLUCOSE (test code = GLU) 89 mg/dL 74-106 N BLOOD UREA NITROGEN (test code = BUN) 11 mg/dL 7-18 N GLOMERULAR FILTRATION RATE (test code = GFR) > 60 mL/min >=60 Estimated GFR by using Modified MDRD formula.Chronic kidney disease is defined as either kidney damageor GFR <60 mL/min/1.73 m2 for >3 months. CREATININE (test code = CREAT) 0.80 mg/dL 0.55-1.02 N Note change in reference range due to change in reagent. BUN/CREATININE RATIO (test code = BUN/CREA) 13.8 10-20 N CALCIUM (test code = CA) 9.0 mg/dL 8.5-10.1 N HCG SERUM [id number] 11:46:00* Test Item Value Reference Range Interpretation Comments HCG SERUM QUAL (test code = HCGQL) NEGATIVE [id number] 11:46:00* Test Item Value Reference Range Interpretation Comments TROPONIN-I (test code = TROPI) <0.015 ng/mL 0-0.045 N BASIC METABOLIC [id number] 11:44:00* Test Item Value Reference Range Interpretation Comments SODIUM (test code = NA) 142 mmol/L 136-145 N POTASSIUM (test code = K) 3.9 mmol/L 3.5-5.1 N CHLORIDE (test code = CL) 110.0 mmol/L 98-107 H CARBON DIOXIDE (test code = CO2) mmol/L 21-32 ANION GAP (test code = GAP) 10-20 GLUCOSE (test code = GLU) mg/dL 74-106 BLOOD UREA NITROGEN (test code = BUN) mg/dL 7-18 GLOMERULAR FILTRATION RATE (test code = GFR) mL/min >=60 CREATININE (test code = CREAT) mg/dL 0.55-1.02 BUN/CREATININE RATIO (test code = BUN/CREA) 10-20 CALCIUM (test code = CA) mg/dL 8.5-10.1 HCG SERUM [id number] 11:44:00* Test Item Value Reference Range Interpretation Comments HCG SERUM QUAL (test code = HCGQL) NEGATIVE [id number] 11:44:00* Test Item Value Reference Range Interpretation Comments TROPONIN-I (test code = TROPI) ng/mL 0-0.045 - XR CHEST 1 [id number] 11:43:00 FAX: Marino Abbott [phone] [place]: St: PRE FAX: Donn Roe MD Name: ANGELA ESPINOSA [facility] : 1975 Age/S: 43/F [address] [facility] Unit #: [id number] Loc: [place] [address] Phys: Donn Roe MD Acct: [id number] Dis Date: Status: PRE ER PHONE #: [phone] Exam Date: 06/14/2019 1124 FAX #: [phone] Reason: CODE STROKE EXAMS: CPT CODE: [id number] XR CHEST 1 V 29037 HISTORY: Stroke. COMPARISON: April 11, 2019. Location: [facility]. No acute infiltrates, effusion or congestion is noted. Suboptimal inspiration with dependent changes. Mild cardiomegaly. IMPRESSION: No acute infiltrates, effusion or congestion. at 1143 Reported and signed by: Shade Alcazar M.D. CC: Vicente Bui MD; Donn Roe MD Technologist: Reba BOGGS(R) Trnscrd Date/Time/By: 06/14/2019 (1143) : By: [email or web address] Orig Print D/T: S: 06/14/2019 (0659) PAGE 1 Signed Report PROTHROMBIN [id number] 11:29:00* Test Item Value Reference Range Interpretation Comments PROTHROMBIN TIME PATIENT (test code = PTP) 11.4 seconds 9.0-14.0 N INTERNATIONAL NORMAL RATIO (test code = INR) 1.0 0.8-1.2 N The therapeutic range for oral anticoagulant therapy formost indications is an international normalized ratio (INR)of between 2.0 and 3.0. The recommended therapeutic INRrange for various clinical situations is listed below: Clinical Situation INR range Pulmonary e mbolism treatment (2.0-3.0)Venous thrombosis treatmentVenous thrombosis prophylaxis (high risk surgery)Prevention of systemic embolism from: Acute myocardial infarction Valvular heart disease Atrial fibrillation Mechanical prosthetic heart valves (2.5-3.5) IS PATIENT ON ANTICOAGULANTS? NTHROMBOPLASTIN TIME [id number] 11:29:00* Test Item Value Reference Range Interpretation Comments THROMBOPLASTIN TIME PARTIAL (test code = PTT) 36.1 seconds 25.0-36. 5 N IS PATIENT ON ANTICOAGULANTS? NCBC W/AUTO [id number] 11:24:00* Test Item Value Reference Range Interpretation Comments WHITE BLOOD CELL (test code = WBC) 6.4 K/mm3 4.5-12.5 N RED BLOOD CELL (test code = RBC) 4.28 mill/mm3 3.7-5.2 N HEMOGLOBIN (test code = HGB) 12.4 gram/dL 11.5-15.5 N HEMATOCRIT (test code = HCT) 38.2 % 36.0-46.0 N MEAN CELL VOLUME (test code = MCV) 89.3 fL 80-98 N MEAN CELL HGB (test code = MCH) 29.0 picogram 27.0-33.0 N MEAN CELL HGB CONCETRATION (test code = MCHC) 32.5 gram/dL 33.0-36. 0 L RED CELL DISTRIBUTION WIDTH (test code = RDW) 13.5 % 11.6-16. 2 N RED CELL DISTRIBUTION WIDTH SD (test code = RDW-SD) 43.9 fL 37 .0-51.0 N PLATELET COUNT (test code = PLT) 244 K/mm3 150-450 N MEAN PLATELET VOLUME (test code = MPV) 9.2 fL 6.7-11.0 N NEUTROPHIL % (test code = NT%) 66.5 % 39.0-69.0 N IMMATURE GRANULOCYTE % (test code = IG%) 0.3 % 0.0-5.0 N LYMPHOCYTE % (test code = LY%) 24.9 % 25.0-55.0 L MONOCYTE % (test code = MO%) 6.3 % 0.0-10.0 N EOSINOPHIL % (test code = EO%) 1.7 % 0.0-5.0 N BASOPHIL % (test code = BA%) 0.3 % 0.0-1.0 N NUCLEATED RBC % (test code = NRBC%) 0.0 % 0-0 N NEUTROPHIL # (test code = NT#) 4.22 K/mm3 1.8-7.7 N IMMATURE GRANULOCYTE # (test code = IG#) 0.02 x10 3/uL 0-0.03 N LYMPHOCYTE # (test code = LY#) 1.58 K/mm3 1.0-5.0 N MONOCYTE # (test code = MO#) 0.40 K/mm3 0-0.8 N EOSINOPHIL # (test code = EO#) 0.11 K/mm3 0.0-0.5 N BASOPHIL # (test code = BA#) 0.02 K/mm3 0.0-0.2 N NUCLEATED RBC # (test code = NRBC#) 0.00 K/mm3 0.0-0.1 N - CT HEAD/BRAIN W/O [id number] 11:24:00 Name: ANGELA ESPINOSA [facility] : 1975 Age/S: 43 / F [address] Unit #: [id number] Loc: [place] [address] Phys: Donn Roe MD Acct: [id number] Dis Date: Status: PRE ER PHONE #: [phone] Exam Date: 06/14/2019 1120 FAX #: [phone] Reason: weakness, slurred speech EXAMS: CPT CODE: [id number] CT HEAD/BRAIN W/O CONT 94705 HISTORY: Weakness and slurred speech. COMPARISON: September 20, 2014. CT brain without contrast: Automated exposure control. Location: [facility]. No acute intracranial bleeds or extra-axial collections and there is no acute territorial vascular infarction. The neff-white matter differentiation is preserved. The sulci, gyri, ventricles and subarachnoid spaces and the basilar cisterns are normal for patient's age. No herniat ion or hydrocephalus or midline shift is noted. Fourth ventricle remains m idline. Portions of the visualized paranasal sinuses are unremarka ble. No obvious bony calvarial defect is noted. IM PRESSION: No acute intracranial bleeds or extra-axial collecti ons. No acute territorial vascular infarction. No herniation or hydrocephalus or midline shift. Electr onically Signed by Pillo Alcazar on 06/14/2019 at 1124 Reported and signed by: Shade Alcazar M.D. CC: Marino Bui MD; Donn Roe MD Technologist:Elayne Forrest,RT(R),CT CTDI: DLP: Trnscb Date/Time: 06/14/2019 (0639) [email or web address] Orig Print D/T: S: 06/14/2019 (9097) PAGE 1 Signed Report [id number] 10:18:00* Test Item Value Reference Range Interpretation Comments D-DIMER (test code = DDIMER) < 500 ng/mL 0-500 N THE DDIMER METHOD IS USED IN THE EXCLUSION OF DEEP VEINTHROMBOSIS AND/OR PULMONARY EMBOLISM AND THE CLINICAL CUT-OFF VALUE FOR EXCLUSION (500 NG/ML FEU) OF THESE CONDITIONSIS VALIDATED BY THE ROD PULLER OF THE METHOD. A NEGATIVE DDIMER RESULT WHEN COMBINED WITH A CLINICALASSESSMENT OF LOW PRETEST PROBABILITY HAS BEEN SHOWN TO HAVEA HIGH NEGATIVE PREDICTIVE VALUE OF DVT OR PE. D-DIMER VALUES >500 ng/mL ARE NOT DIAGNOSTIC FOR DVT,PEOR DIC WITHOUT OTHER CONFIRMATORY TESTS AND APPROPRIATECLINICAL EVALUATIONS. CBC W/AUTO [id number] 07:57:00* Test Item Value Reference Range Interpretation Comments WHITE BLOOD CELL (test code = WBC) 6.8 x10 3/uL 4.8-10.8 N RED BLOOD CELL (test code = RBC) 4.45 x10 6/uL 4.20-5.40 N HEMOGLOBIN (test code = HGB) 13.0 g/dL 14.5-20 L HEMATOCRIT (test code = HCT) 39.2 % 37.0-47.0 N MEAN CELL VOLUME (test code = MCV) 88.1 fL 81.0-99.0 N MEAN CELL HGB (test code = MCH) 29.2 pg 27-31 N MEAN CELL HGB CONCENTRATION (test code = MCHC) 33.2 G/DL 33-36.5 N RED CELL DISTRIBUTION WIDTH (test code = RDW) 13.4 % 12.9-16. 9 N PLATELET COUNT (test code = PLT) 253 150-440 N MEAN PLATELET VOLUME (test code = MPV) 9.3 fL 8.9-12.4 N NEUTROPHIL % (test code = NT%) 75.0 % 42.2-75.2 N LYMPHOCYTE % (test code = LY%) 17.3 % 20.5-51.1 L MONOCYTE % (test code = MO%) 5.0 % 1.7-9.3 N EOSINOPHIL % (test code = EO%) 2.0 % 0.0-7.0 N BASOPHIL % (test code = BA%) 0.4 % 0-2.5 N NEUTROPHIL # (test code = NT#) 5.13 x10 3/uL 1.80-7.70 N LYMPHOCYTE # (test code = LY#) 1.18 x10 3/uL 1.00-4.80 N MONOCYTE # (test code = MO#) 0.34 x10 3/uL 0.00-0.80 N EOSINOPHIL # (test code = EO#) 0.14 x10 3/uL 0.00-0.45 N BASOPHIL # (test code = BA#) 0.03 x10 3/uL 0.0-0.20 N TROPONIN I [id number] 07:55:00* Test Item Value Reference Range Interpretation Comments TROPONIN I RAPID (test code = TROPIRAP) 0.01 ng/mL 0.00-0.08 N - The use of serial sampling and testing protocol is a recommended practice- An elevated tropnin level alone is often not sufficient for diagnosis of myocardial infarction. CHEMISTRY 8 [id number] 07:50:00* Test Item Value Reference Range Interpretation Comments SODIUM POC (test code = NAP) MMOL/L 135-146 N POTASSIUM POC (test code = KP) MMOL/L 3.5-4.9 N IONIZED CALCIUM POC (test code = CAIP) mmol/L 1.12-1.32 N GLUCOSE POC (test code = GLUP) mg/dL 70-105 H BUN POC (test code = BUNP) MG/DL 8-26 N CREATININE POC (test code = CREATP) mg/dL 0.6-1.3 N GLOMERULAR FILTRATION RATE POC (test code = GFRP) 92 58-1 35 N CHEMISTRY 8 [id number] 07:50:00* Test Item Value Reference Range Interpretation Comments SODIUM POC (test code = NAP) 138 MMOL/L 135-146 N POTASSIUM POC (test code = KP) 3.8 MMOL/L 3.5-4.9 N CHLORIDE POC (test code = CLP) 104 MMOL/L 98-109 N CO2 POC (test code = CO2P) 23 mmol/L 24-29 L IONIZED CALCIUM POC (test code = CAIP) 1.17 mmol/L 1.12-1.32 N GLUCOSE POC (test code = GLUP) 108 mg/dL 70-105 H BUN POC (test code = BUNP) 15 MG/DL 8-26 N CREATININE POC (test code = CREATP) 0.7 mg/dL 0.6-1.3 N GLOMERULAR FILTRATION RATE POC (test code = GFRP) 92 58-1 35 N - XR CHEST 1 [id number] 07:39:00Patient Name: ANGELA ESPINOSA Unit No: [id number] EXAMS: CPT CODE: [id number] XR CHEST 1 V 92098 Chest Radiograph History: chest pain Comparison: February 04, 2019 Location: R16 A single frontal view of the chest is submitted. The heart appears unchanged in size. Pulmonary vasculature is unremarkable. There are minimal patchy opacities in the lung bases bilaterally. The bones appear unchanged. IMPRESSION: There are minimal patchy opacities in the lung bases bilaterally. This could be due to atelectasis or pneumonia. at 0739 Reported and signed by: JOSH TURNER M.D. CC: Tom Caruso MD; Faith Quan MD Technologist: Melani Carty Time: DAP (Gy m2): Air Kerma (mGy): Trscr Dt/Tm: 06/12/2019 (0739) by:SilasPMT Printed Date/Time: 06/12/2019 (0742) Name: ANGELA ESPINOSA [facility] Phys: Tom Cain [address] : 1975 Age: 43 Sex: [place] [address] Loc: P.ERS Exam Date: 06/12/2019 Status: REG ER PH: FAX: PAGE 1 Signed Report BASIC METABOLIC PANEL 2019-05-25 10:07:00* Test Item Value Reference Range Interpretation Comments SODIUM (test code = NA) 141 mmol/L 136-145 N POTASSIUM (test code = K) 4.1 mmol/L 3.5-5.1 N CHLORIDE (test code = CL) 110.0 mmol/L 98-107 H CARBON DIOXIDE (test code = CO2) 24.0 mmol/L 21-32 N ANION GAP (test code = GAP) 11.1 10-20 N GLUCOSE (test code = GLU) 96 mg/dL 74-106 N BLOOD UREA NITROGEN (test code = BUN) 12 mg/dL 7-18 N GLOMERULAR FILTRATION RATE (test code = GFR) > 60 mL/min >=60 Estimated GFR by using Modified MDRD formula.Chronic kidney disease is defined as either kidney damageor GFR <60 mL/min/1.73 m2 for >3 months. CREATININE (test code = CREAT) 0.80 mg/dL 0.55-1.02 N Note change in reference range due to change in reagent. BUN/CREATININE RATIO (test code = BUN/CREA) 15.0 10-20 N CALCIUM (test code = CA) 8.6 mg/dL 8.5-10.1 N HEPATIC FUNCTION [id number] 10:07:00* Test Item Value Reference Range Interpretation Comments TOTAL PROTEIN (test code = PROT) 7.2 gram/dL 6.4-8.2 N ALBUMIN (test code = ALB) 3.4 g/dL 3.4-5.0 N GLOBULIN (test code = GLOB) 3.8 gram/dL 2.7-4.2 N ALBUMIN/GLOBULIN RATIO (test code = A/G) 0.9 0.75-1.50 N BILIRUBIN TOTAL (test code = BILT) 0.30 mg/dL 0.0-1.0 N BILIRUBIN DIRECT (test code = BILD) 0.08 mg/dL 0.0-0.20 N SGOT/AST (test code = AST) 21 IUnit/L 15-37 N SGPT/ALT (test code = ALT) 42 IUnit/L 12-78 N ALKALINE PHOSPHATASE TOTAL (test code = ALKP) 112 IUnit/L 45-117 N Note change in reference range due to change in reagent. [id number] 10:07:00* Test Item Value Reference Range Interpretation Comments LIPASE (test code = LIP) 89 U/L 73.0-393.0 N CBC W/O [id number] 09:48:00* Test Item Value Reference Range Interpretation Comments WHITE BLOOD CELL (test code = WBC) 6.7 K/mm3 4.5-12.5 N RED BLOOD CELL (test code = RBC) 4.70 mill/mm3 3.7-5.2 N HEMOGLOBIN (test code = HGB) 13.5 gram/dL 11.5-15.5 N HEMATOCRIT (test code = HCT) 41.8 % 36.0-46.0 N MEAN CELL VOLUME (test code = MCV) 88.9 fL 80-98 N MEAN CELL HGB (test code = MCH) 28.7 picogram 27.0-33.0 N MEAN CELL HGB CONCETRATION (test code = MCHC) 32.3 gram/dL 33.0-36. 0 L RED CELL DISTRIBUTION WIDTH (test code = RDW) 13.8 % 11.6-16. 2 N PLATELET COUNT (test code = PLT) 303 K/mm3 150-450 N MEAN PLATELET VOLUME (test code = MPV) 9.0 fL 6.7-11.0 N - US RETRO [id number] 09:48:00 Name: REJI ESPINOSAA [facility] : 1975 Age/S: 43 / F [address] [facility] Unit #: [id number] Loc: [place] [address] Phys: Briseyda Bailey RESEARCH CLERK Acct: [id number] Dis Date: Status: REG ER PHONE #: [phone] Exam Date: 05/25/2019919 FAX #: [phone] Reason: LEFT CVA TENDERNESS EXAMS: CPT CODE: [id number] RETRO LTD 14797 EXAM: Ultrasound retroperitoneum, limited; INFORMATION: Left CVA tenderness, back pain; FINDINGS: The kidneys are of normal size and shape; no hydronephrosis, no stones no parenchymal abnormalities. An 8 mm left renal cyst is seen. The left kidney measures 12.6 x 5.8 x 5.1 cm, with a parenchymal thickness of 1.7 cm. The right kidney measures 11.7 x 5 x 6.3 cm, with a parenchymal thickness of 1.7 cm. The urinary bladder is unremarkable. IMPRESSION: 1. Small left renal cyst. 2. Otherwise, unremarkable renal ultrasound. Location code: at 0948 Reported and signed by: Ismael Mckeon M.D. CC: Briseyda Bailey RESEARCH CLERK; Vicente Bui MD Technologist: OUSMANE CRISTINA RT(R),[facility] Date/Time: 05/25/2019 (0948) Dayna Orig Print D/T: S: 05/25/2019 (0951) Probe: PAGE 1 Signed Report CBC W/O [id number] 09:45:00* Test Item Value Reference Range Interpretation Comments WHITE BLOOD CELL (test code = WBC) K/mm3 4.5-12.5 RED BLOOD CELL (test code = RBC) mill/mm3 3.7-5.2 HEMOGLOBIN (test code = HGB) 13.5 gram/dL 11.5-15.5 N HEMATOCRIT (test code = HCT) 41.8 % 36.0-46.0 N MEAN CELL VOLUME (test code = MCV) fL 80-98 MEAN CELL HGB (test code = MCH) picogram 27.0-33.0 MEAN CELL HGB CONCETRATION (test code = MCHC) gram/dL 33.0-36. 0 RED CELL DISTRIBUTION WIDTH (test code = RDW) % 11.6-16. 2 PLATELET COUNT (test code = PLT) K/mm3 150-450 MEAN PLATELET VOLUME (test code = MPV) fL 6.7-11.0 URINALYSIS [id number] 09:20:00* Test Item Value Reference Range Interpretation Comments UA COLOR (test code = COLU) Light-Yellow YELLOW UA APPEARANCE (test code = APPU) CLEAR CLEAR UA GLUCOSE DIPSTICK (test code = DGLUU) NEGATIVE mg/dL NEGATIVE UA BILIRUBIN DIPSTICK (test code = BILU) NEGATIVE mg/dL NEGATIVE UA KETONE DIPSTICK (test code = KETU) NEGATIVE mg/dL NEGATIVE UA SPECIFIC GRAVITY (test code = SGU) 1.017 1.001-1.035 UA BLOOD DIPSTICK (test code = MAT) Negative mg/dL NEGATIVE UA PH DIPSTICK (test code = CHARISMA) 5.5 5.0-8.0 UA PROTEIN DIPSTICK (test code = PROU) NEGATIVE mg/dL NEGATIVE UA UROBILINIOGEN DIPSTICK (test code = URO) Normal mg/dL NEGATIVE UA NITRITE DIPSTICK (test code = MANDI) NEGATIVE NEGATIVE UA LEUKOCYTE ESTERASE W REFLEX (test code = LEUUR) NEGATIVE Rah/uL NEGATIVE UA WBC (test code = WBCU) 0-5 per HPF 0-5 UA RBC (test code = RBCU) 0-2 #/HPF 0-5 UA EPITHELIAL CELLS (test code = EPIU) Few (2-5/hpf) per HPF FEW UA BACTERIA (test code = BACU) FEW #/HPF NONE UA MUCUS (test code = MUCU) FEW #/LPF FEW Urine Source? Clean CatchURINALYSIS [id number] 09:19:00* Test Item Value Reference Range Interpretation Comments UA COLOR (test code = COLU) Light-Yellow YELLOW UA APPEARANCE (test code = APPU) CLEAR CLEAR UA GLUCOSE DIPSTICK (test code = DGLUU) NEGATIVE mg/dL NEGATIVE UA BILIRUBIN DIPSTICK (test code = BILU) NEGATIVE mg/dL NEGATIVE UA KETONE DIPSTICK (test code = KETU) NEGATIVE mg/dL NEGATIVE UA SPECIFIC GRAVITY (test code = SGU) 1.017 1.001-1.035 UA BLOOD DIPSTICK (test code = MAT) Negative mg/dL NEGATIVE UA PH DIPSTICK (test code = CHARISMA) 5.5 5.0-8.0 UA PROTEIN DIPSTICK (test code = PROU) NEGATIVE mg/dL NEGATIVE UA UROBILINIOGEN DIPSTICK (test code = URO) Normal mg/dL NEGATIVE UA NITRITE DIPSTICK (test code = MANDI) NEGATIVE NEGATIVE UA LEUKOCYTE ESTERASE W REFLEX (test code = LEUUR) NEGATIVE Rah/uL NEGATIVE UA WBC (test code = WBCU) 0-5 per HPF 0-5 UA RBC (test code = RBCU) 0-2 #/HPF 0-5 UA EPITHELIAL CELLS (test code = EPIU) Few (2-5/hpf) per HPF FEW UA BACTERIA (test code = BACU) FEW #/HPF NONE Urine Source? Clean CatchCBC W/AUTO [id number] 15:45:00* Test Item Value Reference Range Interpretation Comments WHITE BLOOD CELL (test code = WBC) 8.9 K/mm3 6.6-12.1 N RED BLOOD CELL (test code = RBC) 4.53 M/mm3 3.45-5.01 N HEMOGLOBIN (test code = HGB) 13.1 g/dL 10.7-13.9 N HEMATOCRIT (test code = HCT) 40.4 % 32.1-42.1 N MEAN CELL VOLUME (test code = MCV) 89 fL 84.1-94.8 N MEAN CELL HGB (test code = MCH) 28.9 pg 27-35 N MEAN CELL HGB CONCETRATION (test code = MCHC) 32.4 gm/dL 32.2-34. 1 N RED CELL DISTRIBUTION WIDTH (test code = RDW) 13.7 % 12.4-16. 5 N PLATELET COUNT (test code = PLT) 292 K/mm3 133-385 N IMMATURE PLATELET FRACTION (test code = IPF) 0.0 % 0.0-10.8 N MEAN PLATELET VOLUME (test code = MPV) 9.9 fl 9.1-12.7 N NEUTROPHIL % (test code = NT%) 76.5 % 56.5-79.4 N LYMPHOCYTE % (test code = LY%) 16.4 % 14.3-34.3 N MONOCYTE % (test code = MO%) 5.6 % 5.1-10.4 N EOSINOPHIL % (test code = EO%) 0.7 % 0.1-3.0 N BASOPHIL % (test code = BA%) 0.6 % 0.1-1.0 N NEUTROPHIL # (test code = NT#) 6.8 K/mm3 LYMPHOCYTE # (test code = LY#) 1.5 K/mm3 MONOCYTE # (test code = MO#) 0.5 K/mm3 EOSINOPHIL # (test code = EO#) 0.06 K/mm3 BASOPHIL # (test code = BA#) 0.1 K/mm3 RBC MORPHOLOGY REQUIRED (test code = RBCM) NORMAL NORMAL PLATELET MORPHOLOGY REQUIRED (test code = PLTMR) NORMAL YOANA L CHEMISTRY 7 [id number] 15:41:00* Test Item Value Reference Range Interpretation Comments SODIUM (test code = NA) 140 mEq/L 135-145 N POTASSIUM (test code = K) 4.4 mEq/L 3.5-5.0 N CHLORIDE (test code = CL) 103 mEq/L 100-115 N CARBON DIOXIDE (test code = CO2) 28 mEq/L 22-31 N ANION GAP (test code = GAP) 13.90 10-20 N GLUCOSE (test code = GLU) 76 mg/dL 65-110 N BLOOD UREA NITROGEN (test code = BUN) 12 mg/dL 7-18 N GLOMERULAR FILTRATION RATE (test code = GFR) 79 ml/min >60 N CREATININE (test code = CREAT) 0.8 mg/dL 0.5-1.0 N CALCIUM (test code = CA) 8.8 mg/dL 8.4-10.2 N DRUGS OF ABUSE [id number] 09:21:00* Test Item Value Reference Range Interpretation Comments UR COCAINE (test code = COCAU) NEGATIVE NEGATIVE DETECTION CUT OFF: 150 ng/mL UR CANNABINOIDS (test code = CANU) POSITIVE NEGATIVE A RESULTS CALLED TO SWETA DEANREAD BACK & CONFIRMED? YES.BY F.LAB. 05/03/19919. DETECTION CUT OFF: 50 ng/mL UR AMPHETAMINE (test code = AMPHU) NEGATIVE NEGATIVE DETECTION CUT OFF: 500 ng/mL UR BARBITURATE QUAL (test code = BARBQLU) NEGATIVE NEGATIVE DETECTION CUT OFF: 200 ng/mL UR BENZODIAZEPINE (test code = BENZU) POSITIVE NEGATIVE A RESULTS CALLED TO SWETA DEANREAD BACK & CONFIRMED? YES.BY F.LAB. 05/03/19920. DETECTION CUT OFF: 150 ng/mL UR OPIATES QUAL (test code = OPIAQLU) NEGATIVE NEGATIVE DETECTION CUT OFF: 100 ng/mL UR PHENCYCLIDINE (PCP) (test code = PHENCU) NEGATIVE NEGATIVE DETECTION CUT OFF: 25 ng/mL COMPREHENSIVE METABOLIC [id number] 09:21:00* Test Item Value Reference Range Interpretation Comments SODIUM (test code = NA) 140 mEq/L 135-145 N POTASSIUM (test code = K) 4.0 mEq/L 3.5-5.0 N CHLORIDE (test code = CL) 104 mEq/L 100-115 N CARBON DIOXIDE (test code = CO2) 26 mEq/L 22-31 N ANION GAP (test code = GAP) 14.50 10-20 N GLUCOSE (test code = GLU) 95 mg/dL 65-110 N BLOOD UREA NITROGEN (test code = BUN) 11 mg/dL 7-18 N GLOMERULAR FILTRATION RATE (test code = GFR) 79 ml/min >60 N CREATININE (test code = CREAT) 0.8 mg/dL 0.5-1.0 N TOTAL PROTEIN (test code = PROT) 6.8 gm/dL 6.3-8.2 N ALBUMIN (test code = ALB) 3.5 gm/dL 3.4-4.8 N CALCIUM (test code = CA) 8.7 mg/dL 8.4-10.2 N BILIRUBIN TOTAL (test code = BILT) 0.3 mg/dL 0.2-1.0 N SGOT/AST (test code = AST) 23 units/L 15-37 N SGPT/ALT (test code = ALT) 53 units/L 12-78 N ALKALINE PHOSPHATASE TOTAL (test code = ALKP) 107 units/L 46-116 N [id number] 09:21:00* Test Item Value Reference Range Interpretation Comments LIPASE (test code = LIP) 97 units/L 73-393 N BENZODIAZEPINE [id number] 09:21:00* Test Item Value Reference Range Interpretation Comments OXAZEPAM (test code = OXAZ) TEMAZEPAM (test code = CLAUDE) FLURAZEPAM (test code = FLUR) COMPREHENSIVE METABOLIC [id number] 09:17:00* Test Item Value Reference Range Interpretation Comments SODIUM (test code = NA) 140 mEq/L 135-145 N POTASSIUM (test code = K) 4.0 mEq/L 3.5-5.0 N CHLORIDE (test code = CL) 104 mEq/L 100-115 N CARBON DIOXIDE (test code = CO2) 26 mEq/L 22-31 N ANION GAP (test code = GAP) 14.50 10-20 N GLUCOSE (test code = GLU) 95 mg/dL 65-110 N BLOOD UREA NITROGEN (test code = BUN) 11 mg/dL 7-18 N GLOMERULAR FILTRATION RATE (test code = GFR) 79 ml/min >60 N CREATININE (test code = CREAT) 0.8 mg/dL 0.5-1.0 N TOTAL PROTEIN (test code = PROT) 6.8 gm/dL 6.3-8.2 N ALBUMIN (test code = ALB) 3.5 gm/dL 3.4-4.8 N CALCIUM (test code = CA) 8.7 mg/dL 8.4-10.2 N BILIRUBIN TOTAL (test code = BILT) 0.3 mg/dL 0.2-1.0 N SGOT/AST (test code = AST) 23 units/L 15-37 N SGPT/ALT (test code = ALT) 53 units/L 12-78 N ALKALINE PHOSPHATASE TOTAL (test code = ALKP) 107 units/L 46-116 N [id number] 09:17:00* Test Item Value Reference Range Interpretation Comments LIPASE (test code = LIP) 97 units/L 73-393 N UA RFLX MICR CULT IF [id number] 09:08:00* Test Item Value Reference Range Interpretation Comments UA COLOR (test code = COLU) YELLOW YELLOW UA APPEARANCE (test code = APPU) CLOUDY CLEAR A UA GLUCOSE DIPSTICK (test code = DGLUU) NEGATIVE NEG UA BILIRUBIN DIPSTICK (test code = BILU) NEGATIVE NEG UA KETONE DIPSTICK (test code = KETU) NEGATIVE NEG UA SPECIFIC GRAVITY (test code = SGU) 1.015 1.001-1.035 N UA BLOOD DIPSTICK (test code = MAT) NEG NEG UA PH DIPSTICK (test code = CHARISMA) 6.0 5-9 UA PROTEIN DIPSTICK (test code = PROU) NEGATIVE NEG UA UROBILINIOGEN DIPSTICK (test code = URO) NEGATIVE mg/dL NEG UA NITRITE DIPSTICK (test code = MANDI) NEG NEG UA LEUKOCYTE ESTERASE DIPSTICK (test code = LEUU) NEG NEG UA WBC (test code = WBCU) 3-5 #/hpf NONE SEEN A UA RBC (test code = RBCU) 0-2 #/hpf NONE SEEN UA EPITHELIAL CELLS (test code = EPIU) RARE #/HPF RARE-FEW UA BACTERIA (test code = BACU) FEW /HPF RARE-FEW UA MUCUS (test code = MUCU) RARE NONE SEEN UA AMORPHOUS SEDIMENT (test code = AMORU) OCCASIONAL Indication for culture: Suprapubic PainUR HCG [id number] 09:08:00* Test Item Value Reference Range Interpretation Comments UR HCG QUAL (test code = HCGQLU) NEGATIVE 1. Very dilute urine specimens, as indicated by a lowspecific gravity, may not contain group sales representative levels ofhCG. 2. False negative results may occur when the levels of hCGare below the sensitivity level of the test. If is still suspected, a first morningurine specimen should be collected 48 hours later andtested. Indication for culture: Suprapubic PainCBC W/AUTO [id number] 09:02:00* Test Item Value Reference Range Interpretation Comments WHITE BLOOD CELL (test code = WBC) 7.0 K/mm3 6.6-12.1 N RED BLOOD CELL (test code = RBC) 4.43 M/mm3 3.45-5.01 N HEMOGLOBIN (test code = HGB) 12.9 g/dL 10.7-13.9 N HEMATOCRIT (test code = HCT) 39.3 % 32.1-42.1 N MEAN CELL VOLUME (test code = MCV) 89 fL 84.1-94.8 N MEAN CELL HGB (test code = MCH) 29.1 pg 27-35 N MEAN CELL HGB CONCETRATION (test code = MCHC) 32.8 gm/dL 32.2-34. 1 N RED CELL DISTRIBUTION WIDTH (test code = RDW) 13.7 % 12.4-16. 5 N PLATELET COUNT (test code = PLT) 286 K/mm3 133-385 N IMMATURE PLATELET FRACTION (test code = IPF) 0.0 % 0.0-10.8 N MEAN PLATELET VOLUME (test code = MPV) 9.3 fl 9.1-12.7 N NEUTROPHIL % (test code = NT%) 63.6 % 56.5-79.4 N LYMPHOCYTE % (test code = LY%) 27.7 % 14.3-34.3 N MONOCYTE % (test code = MO%) 6.0 % 5.1-10.4 N EOSINOPHIL % (test code = EO%) 2.0 % 0.1-3.0 N BASOPHIL % (test code = BA%) 0.6 % 0.1-1.0 N NEUTROPHIL # (test code = NT#) 4.5 K/mm3 LYMPHOCYTE # (test code = LY#) 2.0 K/mm3 MONOCYTE # (test code = MO#) 0.4 K/mm3 EOSINOPHIL # (test code = EO#) 0.14 K/mm3 BASOPHIL # (test code = BA#) 0.0 K/mm3 RBC MORPHOLOGY REQUIRED (test code = RBCM) NORMAL NORMAL PLATELET MORPHOLOGY REQUIRED (test code = PLTMR) NORMAL YOANA L UA RFLX MICR CULT IF [id number] 09:02:00* Test Item Value Reference Range Interpretation Comments UA COLOR (test code = COLU) YELLOW UA APPEARANCE (test code = APPU) CLEAR UA GLUCOSE DIPSTICK (test code = DGLUU) NEGATIVE UA BILIRUBIN DIPSTICK (test code = BILU) NEGATIVE UA KETONE DIPSTICK (test code = KETU) NEGATIVE UA SPECIFIC GRAVITY (test code = SGU) 1.001-1.035 UA BLOOD DIPSTICK (test code = MAT) NEGATIVE UA PH DIPSTICK (test code = CHARISMA) 5-9 UA PROTEIN DIPSTICK (test code = PROU) NEGATIVE UA UROBILINIOGEN DIPSTICK (test code = URO) mg/dL NEG UA NITRITE DIPSTICK (test code = MANDI) NEGATIVE UA LEUKOCYTE ESTERASE DIPSTICK (test code = LEUU) NEG UA WBC (test code = WBCU) #/hpf NONE SEEN UA EPITHELIAL CELLS (test code = EPIU) #/HPF RARE-FEW Indication for culture: Suprapubic PainUR HCG [id number] 09:02:00* Test Item Value Reference Range Interpretation Comments UR HCG QUAL (test code = HCGQLU) NEGATIVE 1. Very dilute urine specimens, as indicated by a lowspecific gravity, may not contain group sales representative levels ofhCG. 2. False negative results may occur when the levels of hCGare below the sensitivity level of the test. If is still suspected, a first morningurine specimen should be collected 48 hours later andtested. Indication for culture: Suprapubic PainUrine [id number] 08:00:00* Test Item Value Reference Range Interpretation Comments Urine WBC (test code = 5821-4) 0-5 0-5 [facility] [id number] [facility]:00:00* Test Item Value Reference Range Interpretation Comments Urine RBC (test code = 61056-4) 0-5 0-5 [facility] [id number] 08:00:00* Test Item Value Reference Range Interpretation Comments Urine Bacteria (test code = 08480-0) FEW NONE [facility] Epithelial [id number] 08:00:00 * Test Item Value Reference Range Interpretation Comments Urine Epithelial Cells (test code = 58651-6) RARE NONE [facility] O[facility]ates [id number] 07:51:00* Test Item Value Reference Range Interpretation Comments Urine Opiates Screen (test code = 76789-4) NEGATIVE NEGATIVE ALL TESTS PERFORMED MANUALLY ON [employer] TOX/SEE TESTMem[facility]rine Barbiturates [id number] 07:51:00* Test Item Value Reference Range Interpretation Comments Urine Barbiturates Screen (test code = 962863158) NEGATIVE NEGA TIVE [facility] Phencyclidine [id number] 07:51:00* Test Item Value Reference Range Interpretation Comments Urine Phencyclidine Screen (test code = 23712-4) NEGATIVE NEGAT HENRY [facility] Amphetamines [id number] 07:51:00* Test Item Value Reference Range Interpretation Comments Urine Amphetamines Screen (test code = 06407-5) NEGATIVE NEGATI VE [facility] Methamphetamines [id number] 07:51:00* Test Item Value Reference Range Interpretation Comments Urine Methamphetamines Screen (test code = Urine Metha mphetamines Screen) NEGATIVE NEGATIVE [facility] Benzodiazepines [id number] 07:51:00* Test Item Value Reference Range Interpretation Comments Urine Benzodiazepines Screen (test code = 45125-2) POSITIVE NEG ATIVE H This test provides only a screen. Positive results should be repeated by a confi rmatory test.[facility] 2019-04-28 07:51:00* Test Item Value Reference Range Interpretation Comments Urine Cocaine Screen (test code = 3398-5) NEGATIVE NEGATIVE [facility] Cannabinoids [id number] 07:51:00* Test Item Value Reference Range Interpretation Comments Urine Cannabinoids Screen (test code = 27119-2) POSITIVE NEGATI VE H This test provides only a screen. Positive results should be repeated by a confi rmatory test.[facility] Methadone [facility] 2019-04-28 07:51:00* Test Item Value Reference Range Interpretation Comments Urine Methadone Screen (test code = 99187-1) NEGATIVE NEGATIVE THESE RESULTS ARE FOR MEDICAL TREATMENT ONLYTHIS REPORT CONTAINS UNCONFIR MED SCREENING RESULTS*POSITIVE RESULTS WILL BE CONFIRMED BY REFERENCE LAB UPON R EQUEST CUT-OFFDRUG CLASS CONCENTRATION ng/mLAmphetamines 1000Methamphetamines 1000Cocaine Metabolite 300Opiate 300Phencyc lidine 25Cannabinoid 50Barbiturates 300Benzodiazepine 300Methadone 300[facility] Zrggs7705-32-14 07:48:00* Test Item Value Reference Range Interpretation Comments Urine Color (test code = 5778-6) YELLOW YELLOW [facility] Qjndzfa1701-95-02 07:48:00* Test Item Value Reference Range Interpretation Comments Urine Clarity (test code = 35347-0) CLEAR CLEAR [facility] Specific Wvrzkky8732-01-24 07:48:00 * Test Item Value Reference Range Interpretation Comments Urine Specific [place] (test code = 5811-5) 1.020 1.010-1.02 5 [facility] [id number] 07:48:00* Test Item Value Reference Range Interpretation Comments Urine pH (test code = 98693-6) 6 5-7 [facility] Leukocyte Baaxyymy2629-49-05 07:48:00* Test Item Value Reference Range Interpretation Comments Urine Leukocyte Esterase (test code = 93120-8) NEGATIVE NEGATIV E [facility] Kclmoud2677-23-59 07:48:00* Test Item Value Reference Range Interpretation Comments Urine Nitrite (test code = 23238-9) NEGATIVE NEGATIVE [facility] Avhxxgo9029-11-97 07:48:00* Test Item Value Reference Range Interpretation Comments Urine Protein (test code = 36644-6) NEGATIVE NEGATIVE [facility] Glucose (UA)2019-04-28 07:48:00* Test Item Value Reference Range Interpretation Comments Urine Glucose (UA) (test code = 05294-1) NEGATIVE NEGATIVE [facility] Ofvotul7937-25-78 07:48:00* Test Item Value Reference Range Interpretation Comments Urine Ketones (test code = 82781-2) NEGATIVE NEGATIVE [facility] Thszdssisbpp8778-44-52 07:48:00* Test Item Value Reference Range Interpretation Comments Urine Urobilinogen (test code = 62968-8) 0.2 0.2-1 [facility] Ryhluklqr9206-50-33 07:48:00* Test Item Value Reference Range Interpretation Comments Urine Bilirubin (test code = 1977-8) NEGATIVE NEGATIVE [facility] Iiyjw6028-19-74 07:48:00* Test Item Value Reference Range Interpretation Comments Urine Blood (test code = 13643-4) NEGATIVE NEGATIVE [facility] Gtdhjny1278-60-70 08:20:00* Test Item Value Reference Range Interpretation Comments Urine Culture (test code = 630-4) No Result Data Provided [facility] [id number] 09:18:00* Test Item Value Reference Range Interpretation Comments Urine WBC (test code = 5821-4) 6-10 0-5 H [facility] [id number] 09:18:00* Test Item Value Reference Range Interpretation Comments Urine RBC (test code = 53184-5) 0-5 0-5 [facility] Yrdbzqtb3590-94-81 09:18:00* Test Item Value Reference Range Interpretation Comments Urine Bacteria (test code = 46875-8) MANY NONE H [facility] Epithelial Abzkw2434-51-22 09:18:00 * Test Item Value Reference Range Interpretation Comments Urine Epithelial Cells (test code = 56707-9) FEW NONE [facility] Ipaa6444-82-14 09:03:00* Test Item Value Reference Range Interpretation Comments Urine Test (test code = 2106-3) NEGATIVE NEGATIVE [facility] Evfq1963-83-15 09:03:00* Test Item Value Reference Range Interpretation Comments Urine Test (test code = 2106-3) NEGATIVE NEGATIVE [facility] Mvqbs1564-11-32 09:01:00* Test Item Value Reference Range Interpretation Comments Urine Color (test code = 5778-6) YELLOW YELLOW [facility] Jagnfwa3525-40-77 09:01:00* Test Item Value Reference Range Interpretation Comments Urine Clarity (test code = 44497-0) SL CLOUDY CLEAR [facility] Specific Okmfinm6497-83-61 09:01:00 * Test Item Value Reference Range Interpretation Comments Urine Specific [place] (test code = 5811-5) <=1.005 1.010-1.02 5 [facility] [id number] 09:01:00* Test Item Value Reference Range Interpretation Comments Urine pH (test code = 18024-7) 7 5-7 [facility] Leukocyte Ybufeqaj0327-31-52 09:01:00* Test Item Value Reference Range Interpretation Comments Urine Leukocyte Esterase (test code = 45337-9) TRACE NEGATIV E H [facility] Jvoiuwe0700-53-13 09:01:00* Test Item Value Reference Range Interpretation Comments Urine Nitrite (test code = 00079-0) NEGATIVE NEGATIVE [facility] Eadtrri8562-38-05 09:01:00* Test Item Value Reference Range Interpretation Comments Urine Protein (test code = 38662-8) NEGATIVE NEGATIVE [facility] Glucose (UA)2019-04-22 09:01:00* Test Item Value Reference Range Interpretation Comments Urine Glucose (UA) (test code = 19985-3) NEGATIVE NEGATIVE [facility] Upqvjiw4956-97-77 09:01:00* Test Item Value Reference Range Interpretation Comments Urine Ketones (test code = 16978-0) NEGATIVE NEGATIVE [facility] Nfoxiuwykqqa7926-88-22 09:01:00* Test Item Value Reference Range Interpretation Comments Urine Urobilinogen (test code = 41217-3) 0.2 0.2-1 [facility] Wtsmnaisg6564-14-11 09:01:00* Test Item Value Reference Range Interpretation Comments Urine Bilirubin (test code = 1977-8) NEGATIVE NEGATIVE [facility] Enbww4204-88-72 09:01:00* Test Item Value Reference Range Interpretation Comments Urine Blood (test code = 53802-6) NEGATIVE NEGATIVE [facility] HospitalABDOMEN 2 [id number] 08:56:00 [facility] [address] [place], [place] [id number] Patient Name: ANGELA ESPINOSA MR #: [id number] : 1975 Age/Sex: 43/F Req #: [id number] Adm Physician: Ordered by: COLLETTE MARTINEZ MD Report #: [id number] Location: ER Room/Bed: Procedure: 1122- 0020 DX/ABDOMEN 2 VIEW Exam Date: 04/22/19 Exam Time : 0840 REPORT STATUS: Signed Exa m: KUB - 2 views Indication: Abdominal Pain Comparison: CT abdomen and pelvis of 02/26/2019 Findings: Nonobstructive bowel gas pattern. No free air. Status post cholecystectomy and ventral hernia mesh repair. The osseous structures appear unremarkable. Partially visualized lung bases appear clear. Impression: No acute radiographic abnormality. Signed by: Leta Krueger MD on 04/22/2019 8:58 AM Dictated By: LETA KRUEGER MD Electronically Sig jack By: LETA KRUEGER MD on 04/22/19857 Transcribed By: LULU on 04/22/19857 COPY TO: COLLETTE MARTINEZ MD URINALYSIS [id number] 08:25:00* Test Item Value Reference Range Interpretation Comments UA COLOR (test code = COLU) Light-Yellow YELLOW UA APPEARANCE (test code = APPU) HAZY CLEAR A UA GLUCOSE DIPSTICK (test code = DGLUU) NEGATIVE mg/dL NEGATIVE UA BILIRUBIN DIPSTICK (test code = BILU) NEGATIVE mg/dL NEGATIVE UA KETONE DIPSTICK (test code = KETU) NEGATIVE mg/dL NEGATIVE UA SPECIFIC GRAVITY (test code = SGU) 1.013 1.001-1.035 UA BLOOD DIPSTICK (test code = MAT) Negative mg/dL NEGATIVE UA PH DIPSTICK (test code = CHARISMA) 5.5 5.0-8.0 UA PROTEIN DIPSTICK (test code = PROU) NEGATIVE mg/dL NEGATIVE UA UROBILINIOGEN DIPSTICK (test code = URO) Normal mg/dL NEGATIVE UA NITRITE DIPSTICK (test code = MANDI) NEGATIVE NEGATIVE UA LEUKOCYTE ESTERASE W REFLEX (test code = LEUUR) NEGATIVE Rah/uL NEGATIVE UA WBC (test code = WBCU) 0-5 per HPF 0-5 UA RBC (test code = RBCU) 0-2 #/HPF 0-5 UA EPITHELIAL CELLS (test code = EPIU) MANY per HPF FEW UA BACTERIA (test code = BACU) MODERATE #/HPF NONE A UA MUCUS (test code = MUCU) FEW #/LPF FEW Urine Source? Clean CatchBASIC METABOLIC [id number] 09:50:00* Test Item Value Reference Range Interpretation Comments SODIUM (test code = NA) 137 mmol/L 136-145 N POTASSIUM (test code = K) 4.2 mmol/L 3.5-5.1 N CHLORIDE (test code = CL) 106.0 mmol/L 98-107 N CARBON DIOXIDE (test code = CO2) 25.0 mmol/L 21-32 N ANION GAP (test code = GAP) 10.2 10-20 N GLUCOSE (test code = GLU) 100 mg/dL 74-106 N BLOOD UREA NITROGEN (test code = BUN) 14 mg/dL 7-18 N GLOMERULAR FILTRATION RATE (test code = GFR) > 60 mL/min >=60 Estimated GFR by using Modified MDRD formula.Chronic kidney disease is defined as either kidney damageor GFR <60 mL/min/1.73 m2 for >3 months. CREATININE (test code = CREAT) 0.90 mg/dL 0.55-1.02 N Note change in reference range due to change in reagent. BUN/CREATININE RATIO (test code = BUN/CREA) 15.3 10-20 N CALCIUM (test code = CA) 8.9 mg/dL 8.5-10.1 N HEPATIC FUNCTION [id number] 09:50:00* Test Item Value Reference Range Interpretation Comments TOTAL PROTEIN (test code = PROT) 7.1 gram/dL 6.4-8.2 N ALBUMIN (test code = ALB) 3.4 g/dL 3.4-5.0 N GLOBULIN (test code = GLOB) 3.7 gram/dL 2.7-4.2 N ALBUMIN/GLOBULIN RATIO (test code = A/G) 0.9 0.75-1.50 N BILIRUBIN TOTAL (test code = BILT) 0.30 mg/dL 0.0-1.0 N BILIRUBIN DIRECT (test code = BILD) 0.11 mg/dL 0.0-0.20 N SGOT/AST (test code = AST) 21 IUnit/L 15-37 N SGPT/ALT (test code = ALT) 42 IUnit/L 12-78 N ALKALINE PHOSPHATASE TOTAL (test code = ALKP) 105 IUnit/L 45-117 N Note change in reference range due to change in reagent. [id number] 09:50:00* Test Item Value Reference Range Interpretation Comments LIPASE (test code = LIP) 80 U/L 73.0-393.0 N HCG SERUM [id number] 09:50:00* Test Item Value Reference Range Interpretation Comments HCG SERUM QUAL (test code = HCGQL) NEGATIVE NEGATIVE This HCGQL test is NOT applicable for MALE patients.Check with nurse about probable order error.If Tumor Marker Test needed, nurse should order test "HCGTU"(Test #550.07728) [id number] 09:50:00* Test Item Value Reference Range Interpretation Comments TROPONIN-I (test code = TROPI) <0.015 ng/mL 0-0.045 N URINALYSIS [id number] 09:43:00* Test Item Value Reference Range Interpretation Comments UA COLOR (test code = COLU) Light-Yellow YELLOW UA APPEARANCE (test code = APPU) CLEAR CLEAR UA GLUCOSE DIPSTICK (test code = DGLUU) NEGATIVE mg/dL NEGATIVE UA BILIRUBIN DIPSTICK (test code = BILU) NEGATIVE mg/dL NEGATIVE UA KETONE DIPSTICK (test code = KETU) NEGATIVE mg/dL NEGATIVE UA SPECIFIC GRAVITY (test code = SGU) 1.018 1.001-1.035 UA BLOOD DIPSTICK (test code = MAT) Negative mg/dL NEGATIVE UA PH DIPSTICK (test code = CHARISMA) 5.5 5.0-8.0 UA PROTEIN DIPSTICK (test code = PROU) NEGATIVE mg/dL NEGATIVE UA UROBILINIOGEN DIPSTICK (test code = URO) Normal mg/dL NEGATIVE UA NITRITE DIPSTICK (test code = MANDI) NEGATIVE NEGATIVE UA LEUKOCYTE ESTERASE W REFLEX (test code = LEUUR) NEGATIVE Rah/uL NEGATIVE UA WBC (test code = WBCU) 0-5 per HPF 0-5 UA RBC (test code = RBCU) 0-2 #/HPF 0-5 UA EPITHELIAL CELLS (test code = EPIU) FEW per HPF FEW UA BACTERIA (test code = BACU) NONE SEEN #/HPF NONE UA MUCUS (test code = MUCU) FEW #/LPF FEW Urine Source? Clean CatchBASIC METABOLIC [id number] 09:42:00* Test Item Value Reference Range Interpretation Comments SODIUM (test code = NA) 137 mmol/L 136-145 N POTASSIUM (test code = K) 4.2 mmol/L 3.5-5.1 N CHLORIDE (test code = CL) 106.0 mmol/L 98-107 N CARBON DIOXIDE (test code = CO2) mmol/L 21-32 ANION GAP (test code = GAP) 10-20 GLUCOSE (test code = GLU) mg/dL 74-106 BLOOD UREA NITROGEN (test code = BUN) mg/dL 7-18 GLOMERULAR FILTRATION RATE (test code = GFR) mL/min >=60 CREATININE (test code = CREAT) mg/dL 0.55-1.02 BUN/CREATININE RATIO (test code = BUN/CREA) 10-20 CALCIUM (test code = CA) mg/dL 8.5-10.1 HEPATIC FUNCTION [id number] 09:42:00* Test Item Value Reference Range Interpretation Comments TOTAL PROTEIN (test code = PROT) gram/dL 6.4-8.2 ALBUMIN (test code = ALB) g/dL 3.4-5.0 GLOBULIN (test code = GLOB) gram/dL 2.7-4.2 ALBUMIN/GLOBULIN RATIO (test code = A/G) 0.75-1.50 BILIRUBIN TOTAL (test code = BILT) mg/dL 0.0-1.0 BILIRUBIN DIRECT (test code = BILD) mg/dL 0.0-0.20 SGOT/AST (test code = AST) IUnit/L 15-37 SGPT/ALT (test code = ALT) IUnit/L 12-78 ALKALINE PHOSPHATASE TOTAL (test code = ALKP) IUnit/L 45-117 [id number] 09:42:00* Test Item Value Reference Range Interpretation Comments LIPASE (test code = LIP) U/L 73.0-393.0 HCG SERUM [id number] 09:42:00* Test Item Value Reference Range Interpretation Comments HCG SERUM QUAL (test code = HCGQL) NEGATIVE NEGATIVE This HCGQL test is NOT applicable for MALE patients.Check with nurse about probable order error.If Tumor Marker Test needed, nurse should order test "HCGTU"(Test #550.64526) [id number] 09:42:00* Test Item Value Reference Range Interpretation Comments TROPONIN-I (test code = TROPI) ng/mL 0-0.045 BASIC METABOLIC [id number] 09:35:00* Test Item Value Reference Range Interpretation Comments SODIUM (test code = NA) mmol/L 136-145 POTASSIUM (test code = K) mmol/L 3.5-5.1 CHLORIDE (test code = CL) mmol/L 98-107 CARBON DIOXIDE (test code = CO2) mmol/L 21-32 ANION GAP (test code = GAP) 10-20 GLUCOSE (test code = GLU) mg/dL 74-106 BLOOD UREA NITROGEN (test code = BUN) mg/dL 7-18 GLOMERULAR FILTRATION RATE (test code = GFR) mL/min >=60 CREATININE (test code = CREAT) mg/dL 0.55-1.02 BUN/CREATININE RATIO (test code = BUN/CREA) 10-20 CALCIUM (test code = CA) mg/dL 8.5-10.1 HEPATIC FUNCTION [id number] 09:35:00* Test Item Value Reference Range Interpretation Comments TOTAL PROTEIN (test code = PROT) gram/dL 6.4-8.2 ALBUMIN (test code = ALB) g/dL 3.4-5.0 GLOBULIN (test code = GLOB) gram/dL 2.7-4.2 ALBUMIN/GLOBULIN RATIO (test code = A/G) 0.75-1.50 BILIRUBIN TOTAL (test code = BILT) mg/dL 0.0-1.0 BILIRUBIN DIRECT (test code = BILD) mg/dL 0.0-0.20 SGOT/AST (test code = AST) IUnit/L 15-37 SGPT/ALT (test code = ALT) IUnit/L 12-78 ALKALINE PHOSPHATASE TOTAL (test code = ALKP) IUnit/L 45-117 [id number] 09:35:00* Test Item Value Reference Range Interpretation Comments LIPASE (test code = LIP) U/L 73.0-393.0 HCG SERUM [id number] 09:35:00* Test Item Value Reference Range Interpretation Comments HCG SERUM QUAL (test code = HCGQL) NEGATIVE NEGATIVE This HCGQL test is NOT applicable for MALE patients.Check with nurse about probable order error.If Tumor Marker Test needed, nurse should order test "HCGTU"(Test #550.78018) [id number] 09:35:00* Test Item Value Reference Range Interpretation Comments TROPONIN-I (test code = TROPI) ng/mL 0-0.045 CBC W/O [id number] 09:34:00* Test Item Value Reference Range Interpretation Comments WHITE BLOOD CELL (test code = WBC) 7.0 K/mm3 4.5-12.5 N RED BLOOD CELL (test code = RBC) 4.50 mill/mm3 3.7-5.2 N HEMOGLOBIN (test code = HGB) 13.1 gram/dL 11.5-15.5 N HEMATOCRIT (test code = HCT) 40.0 % 36.0-46.0 N MEAN CELL VOLUME (test code = MCV) 88.9 fL 80-98 N MEAN CELL HGB (test code = MCH) 29.1 picogram 27.0-33.0 N MEAN CELL HGB CONCETRATION (test code = MCHC) 32.8 gram/dL 33.0-36. 0 L RED CELL DISTRIBUTION WIDTH (test code = RDW) 13.5 % 11.6-16. 2 N PLATELET COUNT (test code = PLT) 295 K/mm3 150-450 N MEAN PLATELET VOLUME (test code = MPV) 9.3 fL 6.7-11.0 N CBC W/O [id number] 09:33:00* Test Item Value Reference Range Interpretation Comments WHITE BLOOD CELL (test code = WBC) K/mm3 4.5-12.5 RED BLOOD CELL (test code = RBC) mill/mm3 3.7-5.2 HEMOGLOBIN (test code = HGB) 13.1 gram/dL 11.5-15.5 N HEMATOCRIT (test code = HCT) 40.0 % 36.0-46.0 N MEAN CELL VOLUME (test code = MCV) fL 80-98 MEAN CELL HGB (test code = MCH) picogram 27.0-33.0 MEAN CELL HGB CONCETRATION (test code = MCHC) gram/dL 33.0-36. 0 RED CELL DISTRIBUTION WIDTH (test code = RDW) % 11.6-16. 2 PLATELET COUNT (test code = PLT) K/mm3 150-450 MEAN PLATELET VOLUME (test code = MPV) fL 6.7-11.0 - XR CHEST 1 [id number] 09:05:00 FAX: Briseyda Bailey NP [place]: B St: REG Name: ANGELA DUPREE [facility] : [birth year] Age/S: 43/F [address] Unit #: [id number] Loc: [place] [address] Phys: Briseyda Bailey NP Acct: [id number] Dis Date: Status: REG ER PHONE #: [phone] Exam Date: 04/11/201944 FAX #: [phone] Reason: Abdominal Pain EXAMS: CPT CODE: [id number] XR CHEST 1 V 71407 HISTORY: Abdominal pain. COMPARISON: None available. Location: [facility]. Single view abdomen: No bowel obstruction. Constipation. Slight diastases of the symphysis is noted. SI joints are preserved. Patient is post ch olecystectomy. Coarse calcifications in the mid left abdomen. IMPRESSION: No bowel obstruction. Constipation. Mild diast ases of the symphysis. Single view chest: COMPARISON: January 31, 2019. No acute infi ltrates, effusion or congestion. Cardiac and the mediastinal silhouette are normal. IMPRESSION: No acute infiltrates , effusion or congestion. at 0905 Reported and signed by: Shade ramirez M.D. CC: Briseyda Bailey NP Technologist: RT Amarjit([place]) Adarsh Tinoco te/Time/By: 04/11/2019 (0905) : By: [email or web address] Orig Print D/T: S: 04/11 (0908) PAGE 1 Signed Report - XR ABDOMEN AP 1 [id number] 09:05:00 FAX: Briseyda Bailey NP [place]: St: REG Name: ANGELA DUPREE [facility] : [birth year]/18 [birth year] Age/S: 43/F [address] [facility] Unit #: [id number] Loc: [place] [address] Phys: Briseyda Bailey NP Acct: [id number] Dis Date: Status: REG ER PHONE #: [phone] Exam Date: 04/11/2019 0844 FAX #: [phone] Reason: Abdominal Pain EXAMS: CPT CODE: [id number] XR ABDOMEN AP 1 V 33831 HISTORY: Abdominal pain. COMPARISON: None available. Location: [facility]. Single view abdomen: No bowel obstruction. Constipation. Slight diastases of the symphysis is noted. SI joints are preserved. Patient is post ch olecystectomy. Coarse calcifications in the mid left abdomen. IMPRESSION: No bowel obstruction. Constipation. Mild diast ases of the symphysis. Single view chest: COMPARISON: January 31, 2019. No acute infi ltrates, effusion or congestion. Cardiac and the mediastinal silhouette are normal. IMPRESSION: No acute infiltrates , effusion or congestion. at 0905 Reported and signed by: Shade ramirez M.D. CC: Briseyda Bailey NP Technologist: CORIN Ocasio) Trnrolando Tinoco te/Time/By: 04/11/2019 (09) : By: [email or web address] Orig Print D/T: S: 04/11 (08) PAGE 1 Signed Report - CT ABD PELVIS W/O [id number] 21:51:00Patient Name: ANGELA ESPINOSA Unit No: [id number] EXAMS: CPT CODE: [id number] CT ABD PELVIS W/O CONT 50871 Location: 18 CT of the abdomen and CT of the pelvis , 04/02/19 CLINICAL HISTORY: Emergency room presentation, left upper quadrant pain in this 43 year-old patient COMPARISON EXAM : Prior CT examination of the abdomen and pelvis conducted on 02/06/19 TECHNIQUE: A CT scan of the abdomen and pelvis conducted in the axial plane scanning u tilizing contiguous 2.5 mm slice thickness from the lower lungs through t he pubic symphysis without IV or enteric contrast with 2D coronal reform atted images acquired. This was acquired using MPR software on the CT work station. Renal stone protocol was used. The examination was performed on an updated helical CT scan using utilizing low-dose radiation technique. Automatic exposure technique was utilized to reduce radiation dose. FINDINGS: No obstructive nephropathy is identi fied. There is again presence of tiny nonobstructing calculi in both kidne ys the largest measuring just 2 to 3 mm size in the mid to lower pole of t he left kidney appearing unchanged to the prior CT exam. Tiny pedunculated probable cysts is again seen arising laterally from the left kidney measu ring just 4 to 5 mm size requiring no further assessment. There is again c ortical scarring of the left kidney ventrally unchanged to the prior exam. Small hyperdensity identified in the left kidney likely indicative a hyperdense cyst appearing similar to the prior exam measuring just a few millimeters requiring no further assessment. Both ureters appear decompre ssed. The liver demonstrates normal size but is fatty in attenuati on without focal abnormality seen on this noncontrast exam. The gallbladde r has been removal clips in the gallbladder fossa. The splee n is normal in size without focal defects. The adrenal glands are unremarkable without masses. The pancreas demonstrates no abnorma lity on this non contrast exam. There are no peripancreatic fluid collect ions. Bowel gas pattern is nonobstructed and nonspecific without pneumoperitoneum or pneumatosis. Assessment of bowel pathology is li mited given lack of IV and enteric contrast w/o abscess or definite abnorm ality identified. The appendix again is not seen. The appendix may have be en surgically removed. No appreciable pericecal inflammatory changes. Ther e is metallic pledgets seen deep to the rectus sheath likely indicative ab dominal wall hernia repair without Name: JESÚSELIANEANGELA Asya [facility] Phys: Huyen Lopez MD [address] : 1975 Age: 43 Sex: F [place], [place] [address] Loc: P.ERS Exam Date: 04/02/2019 Status: REG ER PH: FAX: PAGE 1 Signed Report (CONTIN UED) Patient Name: ANGELA ESPINOSA Unit No: [id number] EXAMS: CPT CODE: [id number] CT ABD PELVIS W/O CONT 04856 <Continued> recurrent hernia are identified. These are present in the region of the umbilicus. No abscess is identified. Previously seen stranding along the sigmoid colon is not identified currently Both the abdominal aorta and IVC are unremarkable. There is no significant adenopathy within the abdomen. Previously seen infiltrates at the lung bases have largely resolved minimal pleural thickening noted.. The pelvic contents are unremarkable without mass. No focal fluid collections or adenopathy. IMPRESSION: Findings consi stent with abdominal wall hernia repair without recurrent hernia or defi nite acute bowel pathology. Again the appendix is not seen without secon bruce findings for appendicitis. It is possible that the appendix may bee n removed No obstructive nephropathy with tiny nonobstructing calculi and benign lesions again seen in the kidneys unchanged to the pr ior CT exam Patient status post cholecystectomy No evolving process of significance when compared to the January CT exam Elect ronically Signed by NAYELI CAMARGO M.D. on 04/02/2019 at 2151 Reported and signed by : NAYELI CAMARGO M.D. CC: Huyen Hurst MD; Faith monique MD Technologist: Nuris Barrow CTDI: 25.02 DLP: 1338 Trscr Dt/Tm: 04/02/2019 (2150) by:clarence [email or web address] Printed Date/Time: 04/02/2019 (2153) Name: JESÚSANGELA [facility] Phys: Huyen Lopez MD [address] OB: 1975 Age: 43 Sex: [place] [address] Loc: P.ERS Exam Date: Status: REG ER PH: FAX: PAGE 2 Signed Report LIVER FUNCTION PANEL 2019-04-02 20:23:00* Test Item Value Reference Range Interpretation Comments TOTAL PROTEIN (test code = PROT) 6.5 g/dL 6.3-8.3 N ALBUMIN (test code = ALB) 4.3 G/DL 3.5-5.0 N BILIRUBIN TOTAL (test code = BILT) 0.2 mg/dL 0.2-1.0 N BILIRUBIN DIRECT (test code = BILD) <0.2 mg/dL 0.0-0.2 N SGOT/AST (test code = AST) 24 IU/L 10-34 N SGPT/ALT (test code = ALT) 35 U/L 10-36 N ALKALINE PHOSPHATASE (test code = ALKP) 101 U/L 32-104 N [id number] 20:23:00* Test Item Value Reference Range Interpretation Comments LIPASE (test code = LIP) 33 U/L 0-190 N URINALYSIS [id number] 20:15:00* Test Item Value Reference Range Interpretation Comments UA COLOR (test code = COLU) YELLOW DISCRIPT YELLOW UA APPEARANCE (test code = APPU) CLEAR DISCRIPT CLEAR UA GLUCOSE DIPSTICK (test code = DGLUU) NEGATIVE mg/dL NEGATIVE UA BILIRUBIN DIPSTICK (test code = BILU) NEGATIVE NEGATIVE UA KETONE DIPSTICK (test code = KETU) NEGATIVE mg/dL NEGATIVE UA SPECIFIC GRAVITY (test code = SGU) <=1.005 1.005-1.030 A UA BLOOD DIPSTICK (test code = MAT) NEGATIVE NEGATIVE UA PH DIPSTICK (test code = CHARISMA) 6.5 5.0-9.0 UA PROTEIN DIPSTICK (test code = PROU) NEGATIVE mg/dL NEGATIVE UA UROBILINOGEN DIPSTICK (test code = URO) 0.2 mg/dL 0.2-1.0 UA NITRITE DIPSTICK (test code = MANDI) POSITIVE NEGATIVE A UA LEUKOCYTE ESTERASE DIPSTICK (test code = LEUU) SMALL NEGA TIVE A UA [id number] 20:15:00* Test Item Value Reference Range Interpretation Comments UA WBC (test code = WBCU) 3-5 #WBC/HPF 0-2 A UA RBC (test code = RBCU) 0-2 #RBC/HPF 0-2 UA BACTERIA (test code = BACU) 3+ /HPF NONE-TRACE A UA SQUAMOUS CELLS (test code = SQU) 1+ /LPF NONE-TRACE A UA URIC ACID CRYSTALS (test code = URIU) OCCASIONAL /HPF NONE SEEN UR HCG [id number] 20:15:00* Test Item Value Reference Range Interpretation Comments UR HCG QUAL (test code = HCGQLU) NEGATIVE NEGATIVE URINALYSIS [id number] 20:09:00* Test Item Value Reference Range Interpretation Comments UA COLOR (test code = COLU) YELLOW DISCRIPT YELLOW UA APPEARANCE (test code = APPU) CLEAR DISCRIPT CLEAR UA GLUCOSE DIPSTICK (test code = DGLUU) NEGATIVE mg/dL NEGATIVE UA BILIRUBIN DIPSTICK (test code = BILU) NEGATIVE NEGATIVE UA KETONE DIPSTICK (test code = KETU) NEGATIVE mg/dL NEGATIVE UA SPECIFIC GRAVITY (test code = SGU) <=1.005 1.005-1.030 A UA BLOOD DIPSTICK (test code = MAT) NEGATIVE NEGATIVE UA PH DIPSTICK (test code = CHARISMA) 6.5 5.0-9.0 UA PROTEIN DIPSTICK (test code = PROU) NEGATIVE mg/dL NEGATIVE UA UROBILINOGEN DIPSTICK (test code = URO) 0.2 mg/dL 0.2-1.0 UA NITRITE DIPSTICK (test code = MANDI) POSITIVE NEGATIVE A UA LEUKOCYTE ESTERASE DIPSTICK (test code = LEUU) SMALL NEGA TIVE A UA [id number] 20:09:00* Test Item Value Reference Range Interpretation Comments UA WBC (test code = WBCU) #WBC/HPF 0-2 UA RBC (test code = RBCU) #RBC/HPF 0-2 UA BACTERIA (test code = BACU) /HPF NONE-TRACE UA SQUAMOUS CELLS (test code = SQU) /LPF NONE-TRACE UR HCG [id number] 20:09:00* Test Item Value Reference Range Interpretation Comments UR HCG QUAL (test code = HCGQLU) NEGATIVE NEGATIVE URINALYSIS [id number] 20:08:00* Test Item Value Reference Range Interpretation Comments UA COLOR (test code = COLU) YELLOW DISCRIPT YELLOW UA APPEARANCE (test code = APPU) CLEAR DISCRIPT CLEAR UA GLUCOSE DIPSTICK (test code = DGLUU) NEGATIVE mg/dL NEGATIVE UA BILIRUBIN DIPSTICK (test code = BILU) NEGATIVE NEGATIVE UA KETONE DIPSTICK (test code = KETU) NEGATIVE mg/dL NEGATIVE UA SPECIFIC GRAVITY (test code = SGU) <=1.005 1.005-1.030 A UA BLOOD DIPSTICK (test code = MAT) NEGATIVE NEGATIVE UA PH DIPSTICK (test code = CHARISMA) 6.5 5.0-9.0 UA PROTEIN DIPSTICK (test code = PROU) NEGATIVE mg/dL NEGATIVE UA UROBILINOGEN DIPSTICK (test code = URO) 0.2 mg/dL 0.2-1.0 UA NITRITE DIPSTICK (test code = MANDI) POSITIVE NEGATIVE A UA LEUKOCYTE ESTERASE DIPSTICK (test code = LEUU) SMALL NEGA TIVE A UA [id number] 20:08:00* Test Item Value Reference Range Interpretation Comments UA WBC (test code = WBCU) #WBC/HPF 0-2 UA RBC (test code = RBCU) #RBC/HPF 0-2 UA BACTERIA (test code = BACU) /HPF NONE-TRACE UA SQUAMOUS CELLS (test code = SQU) /LPF NONE-TRACE UR HCG [id number] 20:08:00* Test Item Value Reference Range Interpretation Comments UR HCG QUAL (test code = HCGQLU) NEGATIVE URINALYSIS [id number] 20:07:00* Test Item Value Reference Range Interpretation Comments UA COLOR (test code = COLU) YELLOW DISCRIPT YELLOW UA APPEARANCE (test code = APPU) CLEAR DISCRIPT CLEAR UA GLUCOSE DIPSTICK (test code = DGLUU) NEGATIVE mg/dL NEGATIVE UA BILIRUBIN DIPSTICK (test code = BILU) NEGATIVE NEGATIVE UA KETONE DIPSTICK (test code = KETU) NEGATIVE mg/dL NEGATIVE UA SPECIFIC GRAVITY (test code = SGU) <=1.005 1.005-1.030 A UA BLOOD DIPSTICK (test code = MTA) NEGATIVE NEGATIVE UA PH DIPSTICK (test code = CHARISMA) 6.5 5.0-9.0 UA PROTEIN DIPSTICK (test code = PROU) NEGATIVE mg/dL NEGATIVE UA UROBILINOGEN DIPSTICK (test code = URO) 0.2 mg/dL 0.2-1.0 UA NITRITE DIPSTICK (test code = MANDI) POSITIVE NEGATIVE A UA LEUKOCYTE ESTERASE DIPSTICK (test code = LEUU) SMALL NEGA TIVE A UA [id number] 20:07:00* Test Item Value Reference Range Interpretation Comments UA WBC (test code = WBCU) #WBC/HPF 0-2 UA RBC (test code = RBCU) #RBC/HPF 0-2 UA BACTERIA (test code = BACU) /HPF NONE-TRACE UA SQUAMOUS CELLS (test code = SQU) /LPF NONE-TRACE UR HCG [id number] 20:07:00* Test Item Value Reference Range Interpretation Comments UR HCG QUAL (test code = HCGQLU) NEGATIVE CBC W/AUTO [id number] 20:03:00* Test Item Value Reference Range Interpretation Comments WHITE BLOOD CELL (test code = WBC) 7.4 x10 3/uL 4.8-10.8 N RED BLOOD CELL (test code = RBC) 4.69 x10 6/uL 4.20-5.40 N HEMOGLOBIN (test code = HGB) 13.5 g/dL 14.5-20 L HEMATOCRIT (test code = HCT) 40.9 % 37.0-47.0 N MEAN CELL VOLUME (test code = MCV) 87.2 fL 81.0-99.0 N MEAN CELL HGB (test code = MCH) 28.8 pg 27-31 N MEAN CELL HGB CONCENTRATION (test code = MCHC) 33.0 G/DL 33-36.5 N RED CELL DISTRIBUTION WIDTH (test code = RDW) 13.7 % 12.9-16. 9 N PLATELET COUNT (test code = PLT) 276 150-440 N MEAN PLATELET VOLUME (test code = MPV) 9.1 fL 8.9-12.4 N NEUTROPHIL % (test code = NT%) 49.0 % 42.2-75.2 N LYMPHOCYTE % (test code = LY%) 38.9 % 20.5-51.1 N MONOCYTE % (test code = MO%) 8.4 % 1.7-9.3 N EOSINOPHIL % (test code = EO%) 2.6 % 0.0-7.0 N BASOPHIL % (test code = BA%) 1.0 % 0-2.5 N NEUTROPHIL # (test code = NT#) 3.60 x10 3/uL 1.80-7.70 N LYMPHOCYTE # (test code = LY#) 2.86 x10 3/uL 1.00-4.80 N MONOCYTE # (test code = MO#) 0.62 x10 3/uL 0.00-0.80 N EOSINOPHIL # (test code = EO#) 0.19 x10 3/uL 0.00-0.45 N BASOPHIL # (test code = BA#) 0.07 x10 3/uL 0.0-0.20 N CHEMISTRY 8 [id number] 20:02:00* Test Item Value Reference Range Interpretation Comments SODIUM POC (test code = NAP) MMOL/L 135-146 N POTASSIUM POC (test code = KP) MMOL/L 3.5-4.9 N IONIZED CALCIUM POC (test code = CAIP) mmol/L 1.12-1.32 N GLUCOSE POC (test code = GLUP) mg/dL 70-105 N BUN POC (test code = BUNP) MG/DL 8-26 N CREATININE POC (test code = CREATP) mg/dL 0.6-1.3 N GLOMERULAR FILTRATION RATE POC (test code = GFRP) 79 58-1 35 N CHEMISTRY 8 [id number] 20:02:00* Test Item Value Reference Range Interpretation Comments SODIUM POC (test code = NAP) 140 MMOL/L 135-146 N POTASSIUM POC (test code = KP) 3.7 MMOL/L 3.5-4.9 N CHLORIDE POC (test code = CLP) 105 MMOL/L 98-109 N CO2 POC (test code = CO2P) 23 mmol/L 24-29 L IONIZED CALCIUM POC (test code = CAIP) 1.15 mmol/L 1.12-1.32 N GLUCOSE POC (test code = GLUP) 92 mg/dL 70-105 N BUN POC (test code = BUNP) 10 MG/DL 8-26 N CREATININE POC (test code = CREATP) 0.8 mg/dL 0.6-1.3 N GLOMERULAR FILTRATION RATE POC (test code = GFRP) 79 58-1 35 N LACTIC ACID [id number] 20:02:00* Test Item Value Reference Range Interpretation Comments LACTIC ACID POC (test code = LACTP) 1.23 mmol/L 0.9-1.70 N - US ABDOMEN [id number] 11:12:00 Patient Name: ANGELA ESPINOSA Unit No: [id number] EXAMS: CPT CODE: [id number] US ABDOMEN LTD 53020 LIMITED ANTERIOR ABDOMINAL WALL ULTRASOUND, 03/22/2019 COMPARISON: CT abdomen dated March 11, 2019 CLINICAL HISTORY: mid abd pain. possible hernia FINDINGS: Sonographic evaluation of the anterior abdominal wall was performed to assess for hernia. No hernia or bowel loops were seen in the anterior abdominal wall. Incidental note is made of echogenic appearance of the visualized portion liver compatible with hepatic steatosis. CONCLUSION: No anterior abdominal wall hernia identified. Hepatic steatosis. at 1112 Reported and signed by: Walter Keita MD CC: Jr Robledo MD Technologist: Saira Chow RDMS, SUMMER Probe: Trnscrbd D/ (1112) t.[email or web address] [email or web address] Orig Print D/T: S: 03/22/2019 (1116) [facility] NAME: ANGELA ESPINOSA Radiology Department PHYS: Jr Irwin MD [address] : 1975 AGE: 43 SEX: F [place] [address] LOC: Suzanna.ERS PHONE #: [phone] EXAM DATE: 03/22/2019 STATUS: DEP ER FAX #: [phone] RAD NO: Page 1 Signed Report Patient Name: ANGELA ESPINOSA Unit No: [id number] EXAMS: CPT CODE: [id number] US ABDOMEN LTD 62785 <Continued> [facility] NAME: ANGELA ESPINOSA Radiology Department PHYS: Jr Irwin MD [address] : 1975 AGE: 43 SEX: F [place] [address] LOC: Suzanna.ERS PHONE #: [phone] EXAM DATE: 03/22/2019 STATUS: [facility] ER FAX #: [phone] RAD NO: Page 2 Signed Report - US ABDOMEN [id number] 11:12:00 Patient Name: ANGELA ESPINOSA Unit No: [id number] EXAMS: CPT CODE: [id number] US ABDOMEN LTD 88511 LIMITED ANTERIOR ABDOMINAL WALL ULTRASOUND, 03/22/2019 COMPARISON: CT abdomen dated March 11, 2019 CLINICAL HISTORY: mid abd pain. possible hernia FINDINGS: Sonographic evaluation of the anterior abdominal wall was performed to assess for hernia. No hernia or bowel loops were seen in the anterior abdominal wall. Incidental note is made of echogenic appearance of the visualized portion liver compatible with hepatic steatosis. CONCLUSION: No anterior abdominal wall hernia identified. Hepatic steatosis. at 1112 Reported and signed by: Walter Keita MD CC: Jr Robledo MD Technologist: Saira Chow RDMS, RVT Probe: Trnscrbd D/ (1112) [email or web address] Orig Print D/T: S: 03/22/2019 (1116) [facility] NAME: ELIANE ESPINOSAJELICA Radiology Department PHYS: GISELLESilvaJr Fletcher MD [address] : 1975 AGE: 43 SEX: F [place] [address] ACCT NO: [id number] LOC: JessicaERS PHONE #: [phone] EXAM DATE: STATUS: REG ER FAX #: [phone] RAD NO: Page 1 Signed Report Patient Name: ANGELA ESPINOSA Unit No: [id number] EXAMS: CPT CODE: [id number] ABDOMEN LTD 89824 <Continued> [facility] NAME: JESÚSELIANEANGELA Radiology Department PHYS: GISELLESilvaJr Fletcher MD [address] : 1975 AGE: 43 SEX: F [place] [address] ACCT NO: [id number] LOC: F.ERS PHONE #: [phone] EXAM DATE: 03/02 STATUS: REG ER FAX #: [phone] RAD NO: P age 4 Signed Report COMPREHENSIVE METABOLIC [id number] 10:14:00* Test Item Value Reference Range Interpretation Comments SODIUM (test code = NA) 138 mEq/L 135-145 N POTASSIUM (test code = K) 3.9 mEq/L 3.5-5.0 N CHLORIDE (test code = CL) 105 mEq/L 100-115 N CARBON DIOXIDE (test code = CO2) 25 mEq/L 22-31 N ANION GAP (test code = GAP) 11.60 10-20 N GLUCOSE (test code = GLU) 98 mg/dL 65-110 N BLOOD UREA NITROGEN (test code = BUN) 9 mg/dL 7-18 N GLOMERULAR FILTRATION RATE (test code = GFR) 79 ml/min >60 N CREATININE (test code = CREAT) 0.8 mg/dL 0.5-1.0 N TOTAL PROTEIN (test code = PROT) 6.2 gm/dL 6.3-8.2 L ALBUMIN (test code = ALB) 3.3 gm/dL 3.4-4.8 L CALCIUM (test code = CA) 8.5 mg/dL 8.4-10.2 N BILIRUBIN TOTAL (test code = BILT) 0.2 mg/dL 0.2-1.0 N SGOT/AST (test code = AST) 22 units/L 15-37 N SGPT/ALT (test code = ALT) 44 units/L 12-78 N ALKALINE PHOSPHATASE TOTAL (test code = ALKP) 93 units/L 46-116 N [id number] 10:14:00* Test Item Value Reference Range Interpretation Comments LIPASE (test code = LIP) 105 units/L 73-393 N CBC W/AUTO [id number] 10:12:00* Test Item Value Reference Range Interpretation Comments WHITE BLOOD CELL (test code = WBC) 5.5 K/mm3 6.6-12.1 L RED BLOOD CELL (test code = RBC) 4.20 M/mm3 3.45-5.01 N HEMOGLOBIN (test code = HGB) 12.3 g/dL 10.7-13.9 N HEMATOCRIT (test code = HCT) 37.8 % 32.1-42.1 N MEAN CELL VOLUME (test code = MCV) 90 fL 84.1-94.8 N MEAN CELL HGB (test code = MCH) 29.3 pg 27-35 N MEAN CELL HGB CONCETRATION (test code = MCHC) 32.5 gm/dL 32.2-34. 1 N RED CELL DISTRIBUTION WIDTH (test code = RDW) 13.9 % 12.4-16. 5 N PLATELET COUNT (test code = PLT) 273 K/mm3 133-385 N IMMATURE PLATELET FRACTION (test code = IPF) 0.0 % 0.0-10.8 N MEAN PLATELET VOLUME (test code = MPV) 9.5 fl 9.1-12.7 N NEUTROPHIL % (test code = NT%) 63.1 % 56.5-79.4 N LYMPHOCYTE % (test code = LY%) 27.3 % 14.3-34.3 N MONOCYTE % (test code = MO%) 6.0 % 5.1-10.4 N EOSINOPHIL % (test code = EO%) 2.5 % 0.1-3.0 N BASOPHIL % (test code = BA%) 0.7 % 0.1-1.0 N NEUTROPHIL # (test code = NT#) 3.5 K/mm3 LYMPHOCYTE # (test code = LY#) 1.5 K/mm3 MONOCYTE # (test code = MO#) 0.3 K/mm3 EOSINOPHIL # (test code = EO#) 0.14 K/mm3 BASOPHIL # (test code = BA#) 0.0 K/mm3 RBC MORPHOLOGY REQUIRED (test code = RBCM) NORMAL NORMAL PLATELET MORPHOLOGY REQUIRED (test code = PLTMR) NORMAL YOANA L UA RFLX MICR CULT IF [id number] 10:05:00* Test Item Value Reference Range Interpretation Comments UA COLOR (test code = COLU) YELLOW YELLOW UA APPEARANCE (test code = APPU) Slightly-Cloudy CLEAR UA GLUCOSE DIPSTICK (test code = DGLUU) NEGATIVE NEG UA BILIRUBIN DIPSTICK (test code = BILU) NEGATIVE NEG UA KETONE DIPSTICK (test code = KETU) NEGATIVE NEG UA SPECIFIC GRAVITY (test code = SGU) 1.012 1.001-1.035 N UA BLOOD DIPSTICK (test code = MAT) NEG NEG UA PH DIPSTICK (test code = CHARISMA) 5.0 5-9 UA PROTEIN DIPSTICK (test code = PROU) NEGATIVE NEG UA UROBILINIOGEN DIPSTICK (test code = URO) NEGATIVE mg/dL NEG UA NITRITE DIPSTICK (test code = MANDI) POSITIVE NEG A UA LEUKOCYTE ESTERASE DIPSTICK (test code = LEUU) NEG NEG UA WBC (test code = WBCU) 6-10 #/hpf NONE SEEN A UA RBC (test code = RBCU) 3-5 #/hpf NONE SEEN A UA EPITHELIAL CELLS (test code = EPIU) MODERATE #/HPF RARE-FEW A UA BACTERIA (test code = BACU) MANY /HPF RARE-FEW A UA MUCUS (test code = MUCU) RARE NONE SEEN Indication for culture: Flank PainUR HCG [id number] 10:05:00* Test Item Value Reference Range Interpretation Comments UR HCG QUAL (test code = HCGQLU) NEGATIVE 1. Very dilute urine specimens, as indicated by a lowspecific gravity, may not contain group sales representative levels ofhCG. 2. False negative results may occur when the levels of hCGare below the sensitivity level of the test. If is still suspected, a first morningurine specimen should be collected 48 hours later andtested. Indication for culture: Flank PainUA RFLX MICR CULT IF [id number] 10:04:00* Test Item Value Reference Range Interpretation Comments UA COLOR (test code = COLU) YELLOW YELLOW UA APPEARANCE (test code = APPU) Slightly-Cloudy CLEAR UA GLUCOSE DIPSTICK (test code = DGLUU) NEGATIVE NEG UA BILIRUBIN DIPSTICK (test code = BILU) NEGATIVE NEG UA KETONE DIPSTICK (test code = KETU) NEGATIVE NEG UA SPECIFIC GRAVITY (test code = SGU) 1.012 1.001-1.035 N UA BLOOD DIPSTICK (test code = MAT) NEG NEG UA PH DIPSTICK (test code = CHARISMA) 5.0 5-9 UA PROTEIN DIPSTICK (test code = PROU) NEGATIVE NEG UA UROBILINIOGEN DIPSTICK (test code = URO) NEGATIVE mg/dL NEG UA NITRITE DIPSTICK (test code = MANDI) POSITIVE NEG A UA LEUKOCYTE ESTERASE DIPSTICK (test code = LEUU) NEG NEG UA WBC (test code = WBCU) 6-10 #/hpf NONE SEEN A UA RBC (test code = RBCU) 3-5 #/hpf NONE SEEN A UA EPITHELIAL CELLS (test code = EPIU) MODERATE #/HPF RARE-FEW A UA BACTERIA (test code = BACU) MANY /HPF RARE-FEW A UA MUCUS (test code = MUCU) RARE NONE SEEN Indication for culture: Flank PainUR HCG [id number] 10:04:00* Test Item Value Reference Range Interpretation Comments UR HCG QUAL (test code = HCGQLU) Indication for culture: Flank PainUrine [id number] 09:40:00* Test Item Value Reference Range Interpretation Comments Urine Color (test code = 5778-6) YELLOW YELLOW [facility] [id number] 09:40:00* Test Item Value Reference Range Interpretation Comments Urine Clarity (test code = 68344-6) CLOUDY CLEAR H [facility] Specific [id number] 09:40:00 * Test Item Value Reference Range Interpretation Comments Urine Specific [place] (test code = 5811-5) 1.010 1.010-1.02 5 [facility] [id number] 09:40:00* Test Item Value Reference Range Interpretation Comments Urine pH (test code = 72451-9) 6 5-7 [facility] Leukocyte [id number] 09:40:00* Test Item Value Reference Range Interpretation Comments Urine Leukocyte Esterase (test code = 28649-5) NEGATIVE NEGATIV E [facility] [id number] 09:40:00* Test Item Value Reference Range Interpretation Comments Urine Nitrite (test code = 60997-2) NEGATIVE NEGATIVE [facility] [id number] 09:40:00* Test Item Value Reference Range Interpretation Comments Urine Protein (test code = 58791-2) NEGATIVE NEGATIVE [facility] Glucose (UA)2019-03-18 09:40:00* Test Item Value Reference Range Interpretation Comments Urine Glucose (UA) (test code = 51909-7) NEGATIVE NEGATIVE [facility] [id number] 09:40:00* Test Item Value Reference Range Interpretation Comments Urine Ketones (test code = 61114-5) NEGATIVE NEGATIVE [facility] [id number] 09:40:00* Test Item Value Reference Range Interpretation Comments Urine Urobilinogen (test code = 90610-2) 0.2 0.2-1 [facility] Omfdngmxg0589-30-25 09:40:00* Test Item Value Reference Range Interpretation Comments Urine Bilirubin (test code = 1977-8) NEGATIVE NEGATIVE [facility] [id number] 09:40:00* Test Item Value Reference Range Interpretation Comments Urine Blood (test code = 39470-9) NEGATIVE NEGATIVE [facility] [id number] 09:40:00* Test Item Value Reference Range Interpretation Comments Urine WBC (test code = 5821-4) 6-10 0-5 H [facility] [id number] 09:40:00* Test Item Value Reference Range Interpretation Comments Urine RBC (test code = 74336-9) 0-5 0-5 [facility] [id number] 09:40:00* Test Item Value Reference Range Interpretation Comments Urine Bacteria (test code = 68172-3) MANY NONE H [facility] Epithelial [id number] 09:40:00 * Test Item Value Reference Range Interpretation Comments Urine Epithelial Cells (test code = 28954-2) MODERATE NONE [facility]PRE[facility]ENSIVE METABOL[facility] [id number] 09:02:00* Test Item Value Reference Range Interpretation Comments SODIUM (test code = NA) 141 mmol/L 134-147 N POTASSIUM (test code = K) 3.6 mmol/L 3.4-5.0 N CHLORIDE (test code = CL) 107 mmol/L 100-108 N CARBON DIOXIDE (test code = CO2) 29 mmol/L 21-32 N ANION GAP (test code = GAP) 5.0 GAP calc 4.0-15.0 N GLUCOSE (test code = GLU) 99 MG/DL 70-110 N BLOOD UREA NITROGEN (test code = BUN) 7 MG/DL 7-18 N GLOMERULAR FILTRATION RATE (test code = GFR) >=60 max estimate estG FR >60 CREATININE (test code = CREAT) 0.9 MG/DL 0.6-1.0 N TOTAL PROTEIN (test code = PROT) 6.5 G/DL 6.4-8.2 N ALBUMIN (test code = ALB) 3.4 G/DL 3.4-5.0 N GLOBULIN (test code = GLOB) 3.1 GM/dL ALBUMIN/GLOBULIN RATIO (test code = A/G) 1.1 RATIO 1.2-2.2 L CALCIUM (test code = CA) 8.5 MG/DL 8.5-10.1 N BILIRUBIN TOTAL (test code = BILT) 0.30 MG/DL 0.2-1.2 N SGOT/AST (test code = AST) 26 Unit/L 15-37 N SGPT/ALT (test code = ALT) 41 Unit/L 12-78 N ALKALINE PHOSPHATASE TOTAL (test code = ALKP) 96 Unit/L 45-117 N [id number] 09:02:00* Test Item Value Reference Range Interpretation Comments LIPASE (test code = LIP) 70 Unit/L 114-286 L CBC W/AUTO [id number] 08:50:00* Test Item Value Reference Range Interpretation Comments WHITE BLOOD CELL (test code = WBC) 5.3 K/mm3 3.5-11.0 N RED BLOOD CELL (test code = RBC) 4.41 M/mm3 4.70-6.10 L HEMOGLOBIN (test code = HGB) 12.9 G/DL 10.4-14.9 N HEMATOCRIT (test code = HCT) 39.2 % 31.5-44.1 N MEAN CELL VOLUME (test code = MCV) 88.9 Fl 84.5-98.6 N MEAN CELL HGB (test code = MCH) 29.3 pg 27.0-34.2 N MEAN CELL HGB CONCETRATION (test code = MCHC) 32.9 G/DL 31.5-34. 0 N RED CELL DISTRIBUTION WIDTH (test code = RDW) 14.2 SD 11.5-14. 5 N PLATELET COUNT (test code = PLT) 231.0 K/mm3 150-450 N MEAN PLATELET VOLUME (test code = MPV) 9.10 fL 7.0-10.5 N NEUTROPHIL % (test code = NT%) 63.7 % 40-76 N LYMPHOCYTE % (test code = LY%) 27.2 % 20.5-51.1 N MONOCYTE % (test code = MO%) 6.6 % 1.7-9.3 N EOSINOPHIL % (test code = EO%) 2.1 % 0.0-6.0 N BASOPHIL % (test code = BA%) 0.4 % 0.0-2.0 N NEUTROPHIL # (test code = NT#) 3.37 K/mm3 1.8-7.6 N LYMPHOCYTE # (test code = LY#) 1.4 K/mm3 0.6-3.2 N MONOCYTE # (test code = MO#) 0.4 K/mm3 0.3-1.1 N EOSINOPHIL # (test code = EO#) 0.1 K/mm3 0.0-0.4 N BASOPHIL # (test code = BA#) 0.0 K/mm3 0.0-0.1 N MANUAL DIFF REQUIRED (test code = MDIFF) NO DIFF/SCN CRITERIA - CT ABD PELVIS [id number] 13:00:00 Name: ANGELA ESPINOSA [facility] : 1975 Age/S: 43 / F [address] [facility] [place] Unit #: [id number] Loc: [place] [address] Phys: Luis Hummel MD Acct: [id number] Dis Date: Status: [facility] PHONE #: [phone] Exam Date: 03/11/2019 1255 FAX #: Reason: luq abdominal pain EXAMS: CPT: [id number] CT ABD PELVIS W/CONT 32047 LOCATION: T18 EXAM: CT ABDOMEN AND PELVIS WITH CONTRAST INDICATION: Left upper quadrant abdominal pain COMPARISON: None. TECHNIQUE: Multiple CT images of the abdomen and pelvis were obtained with reconstructions in the coronal and sagittal planes. 100 ml of Isovue 300 was given intravenously. Up-to-date CT equipment and radiation dose reduction techniques were utilized. Automatic exposure control was utilized. FINDINGS: Bibasilar subsegmental atelectasis present. Diffuse fatty infiltration of the liver. Liver is normal in size. Spleen, adrenal glands and pancreas normal. Gallbladder removed. No biliary distention. P ortal vasculature is patent. Kidneys enhance symmetrically. Persis tent lobulation of the kidneys noted. There is a tiny exophytic cyst of left kidney measuring 9 mm in size. No hydronephrosis or hydroureter. Urinary bladder is normal in appearance. Uterus is absent. Adnexal structu res are within normal limits. The appendix is normal. There is no evidence for acute appendicitis. No free air or free fluid is presen t. No bowel obstruction is seen. Abdominal aorta is normal in caliber. IVC is normal. Bones peripheral soft tissues are unremarkable. IMPRESSION: No acute abnormality identified. Fatty liver. No bowel obs truction. a t 1300 Reported and signed by: Jose L Ordonez M.D. CC: Luis Hummel MD Technologist:Christoph Mason, RT(R)(CT) CTDI: DLP: Trnscb Date/Time: 03/11/2019 ( 1300) [email or web address] Orig Print D/T: S: 03/11/2019 (3719) PAGE 1 Signed Report - CT ABD PELVIS W/[id number] 13:00:00 Name: ANGELA ESPINOSA [facility] : 1975 Age/S: 43 / F [id number] [address] [place] Unit #: [id number] Loc: [place] [address] Phys: Luis Hummel MD Acct: [id number] Dis Date: Status: REG ER PHONE #: [phone] Exam Date: 03/11/2019 1256 FAX #: Reason: luq abdominal pain EXAMS: CPT: [id number] CT ABD PELVIS W/CONT 12466 LOCATION: T18 EXAM: CT ABDOMEN AND PELVIS WITH CONTRAST INDICATION: Left upper quadrant abdominal pain COMPARISON: None. TECHNIQUE: Multiple CT images of the abdomen and pelvis were obtained with reconstructions in the coronal and sagittal planes. 100 ml of Isovue 300 was given intravenously. Up-to-date CT equipment and radiation dose reduction techniques were utilized. Automatic exposure control was utilized. FINDINGS: Bibasilar subsegmental atelectasis present. Diffuse fatty infiltration of the liver. Liver is normal in size. Spleen, adrenal glands and pancreas normal. Gallbladder removed. No biliary distention. Portal vasculature is patent. Kidneys enhance symmetrically. Persistent lobulation of the kidneys noted. There is a tiny exophytic cyst of left kidney measuring 9 mm in size. No hydronephrosis or hydroureter. Urinary bladder is normal in appearance. Uterus is absent. Adnexal structures are within normal limits. The appendix is normal. There is no evidence for acute appendicitis. No free air or free fluid is present. No bowel obstruction is seen. Abdominal aorta is normal in caliber. IVC is normal. Bones peripheral soft tissues are unremarkable. IMPRESSION: No acute abnormality identified. Fatty liver. No bowel obs truction. a t 1300 Reported and signed by: Jose L Ordonez M.D. CC: Luis Hummel MD Technologist:Christoph Mason, RT(R)(CT) CTDI: DLP: Trnscb Date/Time: 03/11/2019 ( 1300) [email or web address] Orig Print D/T: S: 03/11/2019 (0467) PAGE 1 Signed Report BASIC METABOLIC [id number] 12:03:00* Test Item Value Reference Range Interpretation Comments SODIUM (test code = NA) 140 mmol/L 134-147 N POTASSIUM (test code = K) 3.9 mmol/L 3.4-5.0 N CHLORIDE (test code = CL) 110 mmol/L 100-108 H CARBON DIOXIDE (test code = CO2) 27 mmol/L 21-32 N ANION GAP (test code = GAP) 3.0 GAP calc 4.0-15.0 L GLUCOSE (test code = GLU) 94 MG/DL 70-110 N BLOOD UREA NITROGEN (test code = BUN) 10 MG/DL 7-18 N GLOMERULAR FILTRATION RATE (test code = GFR) >=60 max estimate estG FR >60 CREATININE (test code = CREAT) 0.8 MG/DL 0.6-1.0 N CALCIUM (test code = CA) 8.3 MG/DL 8.5-10.1 L HEPATIC FUNCTION [id number] 12:03:00* Test Item Value Reference Range Interpretation Comments TOTAL PROTEIN (test code = PROT) 6.6 G/DL 6.4-8.2 N ALBUMIN (test code = ALB) 3.2 G/DL 3.4-5.0 L BILIRUBIN TOTAL (test code = BILT) 0.30 MG/DL 0.2-1.2 N BILIRUBIN DIRECT (test code = BILD) 0.10 MG/DL 0.00-0.30 N BILIRUBIN INDIRECT (test code = BILIND) 0.20 MG/DL 0.2-1.2 N SGOT/AST (test code = AST) 24 Unit/L 15-37 N SGPT/ALT (test code = ALT) 42 Unit/L 12-78 N ALKALINE PHOSPHATASE TOTAL (test code = ALKP) 91 Unit/L 45-117 N [id number] 12:03:00* Test Item Value Reference Range Interpretation Comments LIPASE (test code = LIP) 67 Unit/L 114-286 L UA RFLX MICR CULT IF [id number] 11:49:00* Test Item Value Reference Range Interpretation Comments UA COLOR (test code = COLU) YELLOW discript YEL/STRAW UA APPEARANCE (test code = APPU) HAZY discript CLEAR A UA GLUCOSE DIPSTICK (test code = DGLUU) NEGATIVE mg/dL NEG UA BILIRUBIN DIPSTICK (test code = BILU) NEGATIVE mg/dL NEG UA KETONE DIPSTICK (test code = KETU) NEGATIVE mg/dL NEG UA SPECIFIC GRAVITY (test code = SGU) <=1.005 SG 1.005-1.030 UA BLOOD DIPSTICK (test code = MAT) NEGATIVE mg/DL NEG UA PH DIPSTICK (test code = CHARISMA) 6.5 pH UNITS 5.0-7.0 UA PROTEIN DIPSTICK (test code = PROU) NEGATIVE mg/dL NEG UA UROBILINIOGEN DIPSTICK (test code = URO) 0.2 mg/dL <2.0 UA NITRITE DIPSTICK (test code = MANDI) POSITIVE SCREEN NEG A UA LEUKOCYTE ESTERASE DIPSTICK (test code = LEUU) 2+ Leuk/mcL NEGA TIVE A UA WBC (test code = WBCU) 1-3 #WBC/HPF 0-3 UA BACTERIA (test code = BACU) 3+ /HPF NONE-TRACE A UA SQUAMOUS CELLS (test code = SQU) TRACE /HPF NONE UA CULTURE NEEDED? (test code = UACULT) NO, WBC<10 Criteria Culture CHK SOURCE OF URINE: CLEAN CATCHIndication for culture: Dysuria/FrequencyCBC W/AUTO [id number] 11:43:00* Test Item Value Reference Range Interpretation Comments WHITE BLOOD CELL (test code = WBC) 5.7 K/mm3 3.5-11.0 N RED BLOOD CELL (test code = RBC) 4.21 M/mm3 4.70-6.10 L HEMOGLOBIN (test code = HGB) 12.4 G/DL 10.4-14.9 N HEMATOCRIT (test code = HCT) 37.2 % 31.5-44.1 N MEAN CELL VOLUME (test code = MCV) 88.4 Fl 84.5-98.6 N MEAN CELL HGB (test code = MCH) 29.5 pg 27.0-34.2 N MEAN CELL HGB CONCETRATION (test code = MCHC) 33.3 G/DL 31.5-34. 0 N RED CELL DISTRIBUTION WIDTH (test code = RDW) 14.1 SD 11.5-14. 5 N PLATELET COUNT (test code = PLT) 240.0 K/mm3 150-450 N MEAN PLATELET VOLUME (test code = MPV) 9.20 fL 7.0-10.5 N NEUTROPHIL % (test code = NT%) 61.3 % 40-76 N LYMPHOCYTE % (test code = LY%) 30.3 % 20.5-51.1 N MONOCYTE % (test code = MO%) 6.0 % 1.7-9.3 N EOSINOPHIL % (test code = EO%) 1.9 % 0.0-6.0 N BASOPHIL % (test code = BA%) 0.5 % 0.0-2.0 N NEUTROPHIL # (test code = NT#) 3.50 K/mm3 1.8-7.6 N LYMPHOCYTE # (test code = LY#) 1.7 K/mm3 0.6-3.2 N MONOCYTE # (test code = MO#) 0.3 K/mm3 0.3-1.1 N EOSINOPHIL # (test code = EO#) 0.1 K/mm3 0.0-0.4 N BASOPHIL # (test code = BA#) 0.0 K/mm3 0.0-0.1 N MANUAL DIFF REQUIRED (test code = MDIFF) NO DIFF/SCN CRITERIA UA RFLX MICR CULT IF [id number] 11:40:00* Test Item Value Reference Range Interpretation Comments UA COLOR (test code = COLU) YELLOW discript YEL/STRAW UA APPEARANCE (test code = APPU) HAZY discript CLEAR A UA GLUCOSE DIPSTICK (test code = DGLUU) NEGATIVE mg/dL NEG UA BILIRUBIN DIPSTICK (test code = BILU) NEGATIVE mg/dL NEG UA KETONE DIPSTICK (test code = KETU) NEGATIVE mg/dL NEG UA SPECIFIC GRAVITY (test code = SGU) <=1.005 SG 1.005-1.030 UA BLOOD DIPSTICK (test code = MAT) NEGATIVE mg/DL NEG UA PH DIPSTICK (test code = CHARISMA) 6.5 pH UNITS 5.0-7.0 UA PROTEIN DIPSTICK (test code = PROU) NEGATIVE mg/dL NEG UA UROBILINIOGEN DIPSTICK (test code = URO) 0.2 mg/dL <2.0 UA NITRITE DIPSTICK (test code = MANDI) POSITIVE SCREEN NEG A UA LEUKOCYTE ESTERASE DIPSTICK (test code = LEUU) 2+ Leuk/mcL NEGA TIVE A UA CULTURE NEEDED? (test code = UACULT) Criteria Culture CHK SOURCE OF URINE: CLEAN CATCHIndication for culture: Dysuria/FrequencyHCG POC 2019-03-11 11:40:00* Test Item Value Reference Range Interpretation Comments HCG POC (test code = HCGPOC) <5 IU/L <5.0 N <5.0 IU/L NEGATIVE5.0 - 25.0 IU/L INDETERMINATE>25.0 POSITIVE Detection of low levels of hCG does not rule out .Because hCG values double approximately every 48 hours in anormal , patients with low levels of hCG should beresampled and retested after 48 hours COMPREHENSIVE METABOLIC [id number] 13:09:00* Test Item Value Reference Range Interpretation Comments SODIUM (test code = NA) 141 mmol/L 134-147 N POTASSIUM (test code = K) 4.1 mmol/L 3.4-5.0 N CHLORIDE (test code = CL) 109 mmol/L 100-108 H CARBON DIOXIDE (test code = CO2) 26 mmol/L 21-32 N ANION GAP (test code = GAP) 6.0 GAP calc 4.0-15.0 N GLUCOSE (test code = GLU) 82 MG/DL 70-110 N BLOOD UREA NITROGEN (test code = BUN) 9 MG/DL 7-18 N GLOMERULAR FILTRATION RATE (test code = GFR) >=60 max estimate estG FR >60 CREATININE (test code = CREAT) 0.9 MG/DL 0.6-1.0 N TOTAL PROTEIN (test code = PROT) 6.6 G/DL 6.4-8.2 N ALBUMIN (test code = ALB) 3.4 G/DL 3.4-5.0 N GLOBULIN (test code = GLOB) 3.2 GM/dL ALBUMIN/GLOBULIN RATIO (test code = A/G) 1.1 RATIO 1.2-2.2 L CALCIUM (test code = CA) 8.4 MG/DL 8.5-10.1 L BILIRUBIN TOTAL (test code = BILT) 0.20 MG/DL 0.2-1.2 N SGOT/AST (test code = AST) 18 Unit/L 15-37 N SGPT/ALT (test code = ALT) 33 Unit/L 12-78 N ALKALINE PHOSPHATASE TOTAL (test code = ALKP) 89 Unit/L 45-117 N [id number] 13:09:00* Test Item Value Reference Range Interpretation Comments LIPASE (test code = LIP) 72 Unit/L 114-286 L CBC W/AUTO [id number] 13:05:00* Test Item Value Reference Range Interpretation Comments WHITE BLOOD CELL (test code = WBC) 6.2 K/mm3 3.5-11.0 N RED BLOOD CELL (test code = RBC) 4.23 M/mm3 4.70-6.10 L HEMOGLOBIN (test code = HGB) 12.5 G/DL 10.4-14.9 N HEMATOCRIT (test code = HCT) 37.1 % 31.5-44.1 N MEAN CELL VOLUME (test code = MCV) 87.7 Fl 84.5-98.6 N MEAN CELL HGB (test code = MCH) 29.6 pg 27.0-34.2 N MEAN CELL HGB CONCETRATION (test code = MCHC) 33.7 G/DL 31.5-34. 0 N RED CELL DISTRIBUTION WIDTH (test code = RDW) 13.8 SD 11.5-14. 5 N PLATELET COUNT (test code = PLT) 267.0 K/mm3 150-450 N MEAN PLATELET VOLUME (test code = MPV) 9.20 fL 7.0-10.5 N NEUTROPHIL % (test code = NT%) 60.2 % 40-76 N LYMPHOCYTE % (test code = LY%) 31.0 % 20.5-51.1 N MONOCYTE % (test code = MO%) 5.6 % 1.7-9.3 N EOSINOPHIL % (test code = EO%) 2.6 % 0.0-6.0 N BASOPHIL % (test code = BA%) 0.6 % 0.0-2.0 N NEUTROPHIL # (test code = NT#) 3.75 K/mm3 1.8-7.6 N LYMPHOCYTE # (test code = LY#) 1.9 K/mm3 0.6-3.2 N MONOCYTE # (test code = MO#) 0.4 K/mm3 0.3-1.1 N EOSINOPHIL # (test code = EO#) 0.2 K/mm3 0.0-0.4 N BASOPHIL # (test code = BA#) 0.0 K/mm3 0.0-0.1 N MANUAL DIFF REQUIRED (test code = MDIFF) NO DIFF/SCN CRITERIA D-Dimer Quantitative (PE/DVT)2019-03-01 09:41:00* Test Item Value Reference Range Interpretation Comments D-Dimer Quantitative (PE/DVT) (test code = 77007-5) < 100 0- 400 As with all in vitro diagnostic tests, the test results should be interpreted by the physician in conjunction with clinical findings and other test results.Test results are reported in NEW D-dimer units(ug/mLFEU).[facility] (PE/DVT)2019-03-01 09:41:00* Test Item Value Reference Range Interpretation Comments D-Dimer Quantitative (PE/DVT) (test code = 07670-3) < 100 0- 400 As with all in vitro diagnostic tests, the test results should be interpreted by the physician in conjunction with clinical findings and other test results.Test results are reported in NEW D-dimer units(ug/mLFEU).[facility] Quantitative (PE/DVT)2019-03-01 09:41:00* Test Item Value Reference Range Interpretation Comments D-Dimer Quantitative (PE/DVT) (test code = 38219-1) < 100 0- 400 As with all in vitro diagnostic tests, the test results should be interpreted by the physician in conjunction with clinical findings and other test results.Test results are reported in NEW D-dimer units(ug/mLFEU).[facility] Quantitative (PE/DVT)2019-03-01 09:41:00* Test Item Value Reference Range Interpretation Comments D-Dimer Quantitative (PE/DVT) (test code = 48680-2) < 100 0- 400 As with all in vitro diagnostic tests, the test results should be interpreted by the physician in conjunction with clinical findings and other test results.Test results are reported in NEW D-dimer units(ug/mLFEU).[facility] HospitalCreatine Kinase [id number] 09:38:00* Test Item Value Reference Range Interpretation Comments Creatine Kinase MB (test code = 83169-5) 0.40 0-5.0 [facility] HospitalTroponin [id number] 09:38:00* Test Item Value Reference Range Interpretation Comments Troponin I (test code = LFF5459) 0.002 0-0.300 [facility] HospitalCreatine Kinase [id number] 09:38:00* Test Item Value Reference Range Interpretation Comments Creatine Kinase MB (test code = 10343-6) 0.40 0-5.0 [place] [id number] 09:38:00* Test Item Value Reference Range Interpretation Comments Troponin I (test code = UPO6411) 0.002 0-0.300 [facility] HospitalCreatine Kinase [id number] 09:38:00* Test Item Value Reference Range Interpretation Comments Creatine Kinase MB (test code = 14232-7) 0.40 0-5.0 [facility] [id number] 09:38:00* Test Item Value Reference Range Interpretation Comments Troponin I (test code = UNN7038) 0.002 0-0.300 [facility] HospitalCreatine Kinase VU1203-07-07 09:38:00* Test Item Value Reference Range Interpretation Comments Creatine Kinase MB (test code = 58543-5) 0.40 0-5.0 [place] [id number] 09:38:00* Test Item Value Reference Range Interpretation Comments Troponin I (test code = MOI2855) 0.002 0-0.300 [facility] Nicdu6324-[facility]-06 09:32:00* Test Item Value Reference Range Interpretation Comments Sodium Level (test code = 2951-2) 141 136-145 [facility] HospitalPotassium Ybgxe2453-64-06 09:32:00* Test Item Value Reference Range Interpretation Comments Potassium Level (test code = 2823-3) 4.1 3.5-5.1 [facility] HospitalChloride Fzsal0608-92-63 09:32:00* Test Item Value Reference Range Interpretation Comments Chloride Level (test code = 2075-0) 107 98-107 [facility] HospitalCarbon Dioxide Rffso6758-10-86 09:32:00* Test Item Value Reference Range Interpretation Comments Carbon Dioxide Level (test code = 2028-9) 24 22-29 [facility] HospitalAnion [id number] 09:32:00* Test Item Value Reference Range Interpretation Comments Anion Gap (test code = 58190-4) 14.1 8-16 [facility] HospitalBlood Urea Vsiiogml4760-53-83 09:32:00* Test Item Value Reference Range Interpretation Comments Blood Urea Nitrogen (test code = 3094-0) 12 7-26 [facility] HospitalCreatinine2019-10-01 09:32:00* Test Item Value Reference Range Interpretation Comments Creatinine (test code = 2160-0) 0.85 0.57-1.11 [facility] HospitalBUN/Creatinine Sgtoi0519-50-04 09:32:00* Test Item Value Reference Range Interpretation Comments BUN/Creatinine Ratio (test code = 3097-3) 14 6-25 [facility] HospitalEstimat Glomerular Filtration Rate 2019-03-01 09:32:00* Test Item Value Reference Range Interpretation Comments Estimat Glomerular Filtration Rate (test code = 007254293) > 60 >60 Ranges were taken from the National Kidney Disease Education Program and the [facility] [employer] literature.Reference ranges:60 or greater: Qhxgla67-30 ( for 3 consecutive months): Chronic kidney disease 15 or less: Kidney failureMem[facility]ann Cypress HospitalGlucose Ufibk4708-65-77 09:32:00* Test Item Value Reference Range Interpretation Comments Glucose Level (test code = ELN4197) 100 74-118 [facility] HospitalCalcium Knucs4656-49-86 09:32:00* Test Item Value Reference Range Interpretation Comments Calcium Level (test code = 17534-8) 9.3 8.4-10.2 [facility] HospitalTotal Rhmsssguf9649-61-84 09:32:00* Test Item Value Reference Range Interpretation Comments Total Bilirubin (test code = 1975-2) 0.5 0.2-1.2 [facility] HospitalAspartate Amino Transf (AST/SGOT) 2019-03-01 09:32:00* Test Item Value Reference Range Interpretation Comments Aspartate Amino Transf (AST/SGOT) (test code = Aspartate Amino Transf (AST/SGOT)) 16 5-34 [facility] HospitalAlanine Aminotransferase (ALT/SGPT) 2019-03-01 09:32:00* Test Item Value Reference Range Interpretation Comments Alanine Aminotransferase (ALT/SGPT) (test code = 1742-6) 24 0-55 [facility] HospitalTotal Zjtrend6873-03-37 09:32:00* Test Item Value Reference Range Interpretation Comments Total Protein (test code = 2885-2) 6.7 6.5-8.1 [facility] HospitalAlbumin2019-10-01 09:32:00* Test Item Value Reference Range Interpretation Comments Albumin (test code = 1751-7) 3.5 3.5-5.0 [facility] HospitalGlobulin2019-10-01 09:32:00* Test Item Value Reference Range Interpretation Comments Globulin (test code = 24307-0) 3.2 2.3-3.5 [facility] HospitalAlbumin/Globulin Yoddc7699-53-33 09:32:00 * Test Item Value Reference Range Interpretation Comments Albumin/Globulin Ratio (test code = 1759-0) 1.1 0.8-2.0 [facility] HospitalAlkaline Mjqkpbpnpyn4115-85-76 09:32:00* Test Item Value Reference Range Interpretation Comments Alkaline Phosphatase (test code = 6768-6) 83 40-150 [facility] HospitalCreatine Wqjxad4710-49-37 09:32:00* Test Item Value Reference Range Interpretation Comments Creatine Kinase (test code = 2157-6) 59 29-168 [facility] HospitalLipase2019-10-01 09:32:00* Test Item Value Reference Range Interpretation Comments Lipase (test code = 3040-3) 15 8-78 [facility] Wucmi0901-98-97 09:32:00* Test Item Value Reference Range Interpretation Comments Sodium Level (test code = 2951-2) 141 136-145 [facility] HospitalPotassium Scxya8164-61-98 09:32:00* Test Item Value Reference Range Interpretation Comments Potassium Level (test code = 2823-3) 4.1 3.5-5.1 [facility] HospitalChloride Mkjuo8998-08-17 09:32:00* Test Item Value Reference Range Interpretation Comments Chloride Level (test code = 2075-0) 107 98-107 [facility] HospitalCarbon Dioxide Wakwd2164-08-91 09:32:00* Test Item Value Reference Range Interpretation Comments Carbon Dioxide Level (test code = 2028-9) 24 22-29 [facility] HospitalAnion Mwh1794-82-15 09:32:00* Test Item Value Reference Range Interpretation Comments Anion Gap (test code = 80106-9) 14.1 8-16 [facility] HospitalBlood Urea Cmojbpvf0038-82-87 09:32:00* Test Item Value Reference Range Interpretation Comments Blood Urea Nitrogen (test code = 3094-0) 12 7-26 [facility] HospitalCreatinine2019-10-01 09:32:00* Test Item Value Reference Range Interpretation Comments Creatinine (test code = 2160-0) 0.85 0.57-1.11 [facility] HospitalBUN/Creatinine Hnbls3738-41-39 09:32:00* Test Item Value Reference Range Interpretation Comments BUN/Creatinine Ratio (test code = 3097-3) 14 6-25 [facility] HospitalEstimat Glomerular Filtration Rate 2019-03-01 09:32:00* Test Item Value Reference Range Interpretation Comments Estimat Glomerular Filtration Rate (test code = 020348881) > 60 >60 Ranges were taken from the National Kidney Disease Education Program and the [facility] [employer] literature.Reference ranges:60 or greater: Sklrtl23-64 ( for 3 consecutive months): Chronic kidney disease 15 or less: Kidney failureMemorial Hermann Cypress HospitalGlucose Ffpsy6363-32-14 09:32:00* Test Item Value Reference Range Interpretation Comments Glucose Level (test code = LMV8945) 100 74-118 [facility] HospitalCalcium Kgoqg6376-80-65 09:32:00* Test Item Value Reference Range Interpretation Comments Calcium Level (test code = 24034-9) 9.3 8.4-10.2 [facility] HospitalTotal Abgfrdppk4055-96-87 09:32:00* Test Item Value Reference Range Interpretation Comments Total Bilirubin (test code = 1975-2) 0.5 0.2-1.2 [facility] HospitalAspartate Amino Transf (AST/SGOT) 2019-03-01 09:32:00* Test Item Value Reference Range Interpretation Comments Aspartate Amino Transf (AST/SGOT) (test code = Aspartate Amino Transf (AST/SGOT)) 16 5-34 [facility] HospitalAlanine Aminotransferase (ALT/SGPT) 2019-03-01 09:32:00* Test Item Value Reference Range Interpretation Comments Alanine Aminotransferase (ALT/SGPT) (test code = 1742-6) 24 0-55 [facility] HospitalTotal Ktufxur2711-59-05 09:32:00* Test Item Value Reference Range Interpretation Comments Total Protein (test code = 2885-2) 6.7 6.5-8.1 [facility] HospitalAlbumin2019-10-01 09:32:00* Test Item Value Reference Range Interpretation Comments Albumin (test code = 1751-7) 3.5 3.5-5.0 [facility] HospitalGlobulin2019-10-01 09:32:00* Test Item Value Reference Range Interpretation Comments Globulin (test code = 94894-1) 3.2 2.3-3.5 [facility] HospitalAlbumin/Globulin Udulr4204-46-75 09:32:00 * Test Item Value Reference Range Interpretation Comments Albumin/Globulin Ratio (test code = 1759-0) 1.1 0.8-2.0 [facility] HospitalAlkaline Zxhvhzfogcm8531-18-85 09:32:00* Test Item Value Reference Range Interpretation Comments Alkaline Phosphatase (test code = 6768-6) 83 40-150 [facility] HospitalCreatine Fiyxbd4546-65-07 09:32:00* Test Item Value Reference Range Interpretation Comments Creatine Kinase (test code = 2157-6) 59 29-168 [facility] HospitalLipase2019-10-01 09:32:00* Test Item Value Reference Range Interpretation Comments Lipase (test code = 3040-3) 15 8-78 [facility]odium Hfoys0887-70-22 09:32:00* Test Item Value Reference Range Interpretation Comments Sodium Level (test code = 2951-2) 141 136-145 [facility] HospitalPotassium Ryaed2366-31-29 09:32:00* Test Item Value Reference Range Interpretation Comments Potassium Level (test code = 2823-3) 4.1 3.5-5.1 [facility] HospitalChloride Xagrl4523-39-51 09:32:00* Test Item Value Reference Range Interpretation Comments Chloride Level (test code = 2075-0) 107 98-107 [facility] HospitalCarbon Dioxide Slzwj4597-19-87 09:32:00* Test Item Value Reference Range Interpretation Comments Carbon Dioxide Level (test code = 2028-9) 24 22-29 [facility] HospitalAnion Tgl3738-36-18 09:32:00* Test Item Value Reference Range Interpretation Comments Anion Gap (test code = 68286-5) 14.1 8-16 [facility] HospitalBlood Urea Sgxbnpwn1413-10-77 09:32:00* Test Item Value Reference Range Interpretation Comments Blood Urea Nitrogen (test code = 3094-0) 12 7-26 [facility] HospitalCreatinine2019-10-01 09:32:00* Test Item Value Reference Range Interpretation Comments Creatinine (test code = 2160-0) 0.85 0.57-1.11 [facility] HospitalBUN/Creatinine Phdkn9720-18-34 09:32:00* Test Item Value Reference Range Interpretation Comments BUN/Creatinine Ratio (test code = 3097-3) 14 6-25 [facility] HospitalEstimat Glomerular Filtration Rate 2019-03-01 09:32:00* Test Item Value Reference Range Interpretation Comments Estimat Glomerular Filtration Rate (test code = 232236946) > 60 >60 Ranges were taken from the National Kidney Disease Education Program and the [facility] literature.Reference ranges:60 or greater: Ogfyog91-28 ( for 3 consecutive months): Chronic kidney disease 15 or less: Kidney failureMemorial Hermann Cypress HospitalGlucose Jrutx9933-54-50 09:32:00* Test Item Value Reference Range Interpretation Comments Glucose Level (test code = IMP4589) 100 74-118 [facility] HospitalCalcium Hdfmn6141-94-40 09:32:00* Test Item Value Reference Range Interpretation Comments Calcium Level (test code = 64268-3) 9.3 8.4-10.2 [facility] HospitalTotal Ypxyvpbvr9170-74-30 09:32:00* Test Item Value Reference Range Interpretation Comments Total Bilirubin (test code = 1975-2) 0.5 0.2-1.2 [facility] HospitalAspartate Amino Transf (AST/SGOT) 2019-03-01 09:32:00* Test Item Value Reference Range Interpretation Comments Aspartate Amino Transf (AST/SGOT) (test code = Aspartate Amino Transf (AST/SGOT)) 16 5-34 [facility] HospitalAlanine Aminotransferase (ALT/SGPT) 2019-03-01 09:32:00* Test Item Value Reference Range Interpretation Comments Alanine Aminotransferase (ALT/SGPT) (test code = 1742-6) 24 0-55 [facility] Fxkggrl4776-91-63 09:32:00* Test Item Value Reference Range Interpretation Comments Total Protein (test code = 2885-2) 6.7 6.5-8.1 [facility] HospitalAlbumin2019-10-01 09:32:00* Test Item Value Reference Range Interpretation Comments Albumin (test code = 1751-7) 3.5 3.5-5.0 [facility] HospitalGlobulin2019-10-01 09:32:00* Test Item Value Reference Range Interpretation Comments Globulin (test code = 16959-2) 3.2 2.3-3.5 [facility] HospitalAlbumin/Globulin Zlwyn7494-50-19 09:32:00 * Test Item Value Reference Range Interpretation Comments Albumin/Globulin Ratio (test code = 1759-0) 1.1 0.8-2.0 [facility] HospitalAlkaline Krsqbphxjjo8241-18-32 09:32:00* Test Item Value Reference Range Interpretation Comments Alkaline Phosphatase (test code = 6768-6) 83 40-150 [facility] HospitalCreatine Tthmxt0662-08-16 09:32:00* Test Item Value Reference Range Interpretation Comments Creatine Kinase (test code = 2157-6) 59 29-168 [facility] HospitalLipase2019-10-01 09:32:00* Test Item Value Reference Range Interpretation Comments Lipase (test code = 3040-3) 15 8-78 [facility]odium Fenes9236-60-22 09:32:00* Test Item Value Reference Range Interpretation Comments Sodium Level (test code = 2951-2) 141 136-145 [facility] HospitalPotassium Xgkcf1999-45-06 09:32:00* Test Item Value Reference Range Interpretation Comments Potassium Level (test code = 2823-3) 4.1 3.5-5.1 [facility] HospitalChloride Jqqbc8834-87-12 09:32:00* Test Item Value Reference Range Interpretation Comments Chloride Level (test code = 2075-0) 107 98-107 [facility] HospitalCarbon Dioxide Vxlgh5746-91-25 09:32:00* Test Item Value Reference Range Interpretation Comments Carbon Dioxide Level (test code = 2028-9) 24 22-29 [facility] HospitalAnion Nxu9308-73-65 09:32:00* Test Item Value Reference Range Interpretation Comments Anion Gap (test code = 00001-3) 14.1 8-16 [facility] HospitalBlood Urea Baeyzbxt0192-62-39 09:32:00* Test Item Value Reference Range Interpretation Comments Blood Urea Nitrogen (test code = 3094-0) 12 7-26 [facility] HospitalCreatinine2019-10-01 09:32:00* Test Item Value Reference Range Interpretation Comments Creatinine (test code = 2160-0) 0.85 0.57-1.11 [facility] HospitalBUN/Creatinine Edbkm0093-51-04 09:32:00* Test Item Value Reference Range Interpretation Comments BUN/Creatinine Ratio (test code = 3097-3) 14 6-25 [facility] HospitalEstimat Glomerular Filtration Rate 2019-03-01 09:32:00* Test Item Value Reference Range Interpretation Comments Estimat Glomerular Filtration Rate (test code = 511877029) > 60 >60 Ranges were taken from the National Kidney Disease Education Program and the [employer] [facility] literature.Reference ranges:60 or greater: Nmxkme53-52 ( for 3 consecutive months): Chronic kidney disease 15 or less: Kidney failureMemorial Hermann Cypress HospitalGlucose Mlpdz4129-09-82 09:32:00* Test Item Value Reference Range Interpretation Comments Glucose Level (test code = PWO5842) 100 74-118 [facility] HospitalCalcium Bndji2779-86-87 09:32:00* Test Item Value Reference Range Interpretation Comments Calcium Level (test code = 52711-3) 9.3 8.4-10.2 [facility] HospitalTotal Qkefremfn3207-41-83 09:32:00* Test Item Value Reference Range Interpretation Comments Total Bilirubin (test code = 1975-2) 0.5 0.2-1.2 [facility] HospitalAspartate Amino Transf (AST/SGOT) 2019-03-01 09:32:00* Test Item Value Reference Range Interpretation Comments Aspartate Amino Transf (AST/SGOT) (test code = Aspartate Amino Transf (AST/SGOT)) 16 5-34 [facility] HospitalAlanine Aminotransferase (ALT/SGPT) 2019-03-01 09:32:00* Test Item Value Reference Range Interpretation Comments Alanine Aminotransferase (ALT/SGPT) (test code = 1742-6) 24 0-55 [facility] HospitalTotal Drxlauu8702-83-01 09:32:00* Test Item Value Reference Range Interpretation Comments Total Protein (test code = 2885-2) 6.7 6.5-8.1 [facility] HospitalAlbumin2019-10-01 09:32:00* Test Item Value Reference Range Interpretation Comments Albumin (test code = 1751-7) 3.5 3.5-5.0 [facility] HospitalGlobulin2019-10-01 09:32:00* Test Item Value Reference Range Interpretation Comments Globulin (test code = 95203-5) 3.2 2.3-3.5 [facility] HospitalAlbumin/Globulin Ecbzt6967-31-39 09:32:00 * Test Item Value Reference Range Interpretation Comments Albumin/Globulin Ratio (test code = 1759-0) 1.1 0.8-2.0 [facility] HospitalAlkaline Httptluzhyo9823-25-98 09:32:00* Test Item Value Reference Range Interpretation Comments Alkaline Phosphatase (test code = 6768-6) 83 40-150 [facility] HospitalCreatine Qmaoes9614-12-46 09:32:00* Test Item Value Reference Range Interpretation Comments Creatine Kinase (test code = 2157-6) 59 29-168 [facility] HospitalLipase2019-10-01 09:32:00* Test Item Value Reference Range Interpretation Comments Lipase (test code = 3040-3) 15 8-78 [facility] HospitalWhite Blood Qddri9497-62-54 09:11:00* Test Item Value Reference Range Interpretation Comments White Blood Count (test code = 6690-2) 7.43 4.8-10.8 [facility] HospitalRed Blood Cwnfi4552-92-30 09:11:00* Test Item Value Reference Range Interpretation Comments Red Blood Count (test code = 789-8) 4.27 3.6-5.1 [facility] HospitalHemoglobin2019-10-01 09:11:00* Test Item Value Reference Range Interpretation Comments Hemoglobin (test code = 33098-1) 12.6 12.0-16.0 [facility] HospitalHematocrit2019-10-01 09:11:00* Test Item Value Reference Range Interpretation Comments Hematocrit (test code = 4544-3) 37.2 34.2-44.1 [facility] HospitalMean Corpuscular Tidvci4236-05-29 09:11:00* Test Item Value Reference Range Interpretation Comments Mean Corpuscular Volume (test code = 787-2) 87.1 81-99 [facility] HospitalMean Corpuscular Qhzbbmpvoq3429-12-54 09:11:00* Test Item Value Reference Range Interpretation Comments Mean Corpuscular Hemoglobin (test code = 785-6) 29.5 28-32 [facility] HospitalMean Corpuscular Hemoglobin Concent 2019-03-01 09:11:00* Test Item Value Reference Range Interpretation Comments Mean Corpuscular Hemoglobin Concent (test code = 786-4) 33.9 31-35 [facility] HospitalRed Cell Distribution Qufdy8161-35-86 09:11:00* Test Item Value Reference Range Interpretation Comments Red Cell Distribution Width (test code = 37216-9) 13.8 11.7 -14.4 [facility] HospitalPlatelet Goeun7177-82-42 09:11:00* Test Item Value Reference Range Interpretation Comments Platelet Count (test code = 777-3) 302 140-360 [facility] HospitalNeutrophils (%) (Auto)2019-03-01 09:11:00 * Test Item Value Reference Range Interpretation Comments Neutrophils (%) (Auto) (test code = 29584-7) 72.5 38.7-80.0 [facility] HospitalLymphocytes (%) (Auto)2019-03-01 09:11:00 * Test Item Value Reference Range Interpretation Comments Lymphocytes (%) (Auto) (test code = 736-9) 20.6 18.0-39.1 [facility] HospitalMonocytes (%) (Auto)2019-03-01 09:11:00* Test Item Value Reference Range Interpretation Comments Monocytes (%) (Auto) (test code = 5905-5) 5.8 4.4-11.3 [facility] HospitalEosinophils (%) (Auto)2019-03-01 09:11:00 * Test Item Value Reference Range Interpretation Comments Eosinophils (%) (Auto) (test code = 713-8) 0.3 0.0-6.0 [facility] HospitalBasophils (%) (Auto)2019-03-01 09:11:00* Test Item Value Reference Range Interpretation Comments Basophils (%) (Auto) (test code = 706-2) 0.1 0.0-1.0 [facility] HospitalIM GRANULOCYTES %2019-03-01 09:11:00* Test Item Value Reference Range Interpretation Comments IM GRANULOCYTES % (test code = IM GRANULOCYTES %) 0.7 0.0- 1.0 [facility] HospitalNeutrophils # (Auto)2019-03-01 09:11:00* Test Item Value Reference Range Interpretation Comments Neutrophils # (Auto) (test code = 751-8) 5.4 2.1-6.9 [facility] HospitalLymphocytes # (Auto)2019-03-01 09:11:00* Test Item Value Reference Range Interpretation Comments Lymphocytes # (Auto) (test code = 83152-2) 1.5 1.0-3.2 [facility] HospitalMonocytes # (Auto)2019-03-01 09:11:00* Test Item Value Reference Range Interpretation Comments Monocytes # (Auto) (test code = 742-7) 0.4 0.2-0.8 [facility] HospitalEosinophils # (Auto)2019-03-01 09:11:00* Test Item Value Reference Range Interpretation Comments Eosinophils # (Auto) (test code = 711-2) 0.0 0.0-0.4 [facility] HospitalBasophils # (Auto)2019-03-01 09:11:00* Test Item Value Reference Range Interpretation Comments Basophils # (Auto) (test code = 704-7) 0.0 0.0-0.1 [facility] HospitalAbsolute Immature Granulocyte (auto 2019-03-01 09:11:00* Test Item Value Reference Range Interpretation Comments Absolute Immature Granulocyte (auto (alexa t code = Absolute Immature Granulocyte (auto) 0.05 0-0.1 [facility] HospitalWhite Blood Jspzb6483-06-33 09:11:00* Test Item Value Reference Range Interpretation Comments White Blood Count (test code = 6690-2) 7.43 4.8-10.8 [facility] HospitalRed Blood Drybo1935-57-99 09:11:00* Test Item Value Reference Range Interpretation Comments Red Blood Count (test code = 789-8) 4.27 3.6-5.1 [facility] HospitalHemoglobin2019-10-01 09:11:00* Test Item Value Reference Range Interpretation Comments Hemoglobin (test code = 61768-7) 12.6 12.0-16.0 [facility] HospitalHematocrit2019-10-01 09:11:00* Test Item Value Reference Range Interpretation Comments Hematocrit (test code = 4544-3) 37.2 34.2-44.1 [facility] HospitalMean Corpuscular Gdfxtr5904-29-49 09:11:00* Test Item Value Reference Range Interpretation Comments Mean Corpuscular Volume (test code = 787-2) 87.1 81-99 [facility] HospitalMean Corpuscular Pyyaktuiql3671-77-48 09:11:00* Test Item Value Reference Range Interpretation Comments Mean Corpuscular Hemoglobin (test code = 785-6) 29.5 28-32 [facility] Hem[facility] Concent 2019-03-01 09:11:00* Test Item Value Reference Range Interpretation Comments Mean Corpuscular Hemoglobin Concent (test code = 786-4) 33.9 31-35 [facility] HospitalRed Cell Distribution Ecpme9539-48-05 09:11:00* Test Item Value Reference Range Interpretation Comments Red Cell Distribution Width (test code = 71940-3) 13.8 11.7 -14.4 [facility] HospitalPlatelet Mdusl1323-18-97 09:11:00* Test Item Value Reference Range Interpretation Comments Platelet Count (test code = 777-3) 302 140-360 [facility] HospitalNeutrophils (%) (Auto)2019-03-01 09:11:00 * Test Item Value Reference Range Interpretation Comments Neutrophils (%) (Auto) (test code = 88593-3) 72.5 38.7-80.0 [facility] HospitalLymphocytes (%) (Auto)2019-03-01 09:11:00 * Test Item Value Reference Range Interpretation Comments Lymphocytes (%) (Auto) (test code = 736-9) 20.6 18.0-39.1 [facility] HospitalMonocytes (%) (Auto)2019-03-01 09:11:00* Test Item Value Reference Range Interpretation Comments Monocytes (%) (Auto) (test code = 5905-5) 5.8 4.4-11.3 [facility] HospitalEosinophils (%) (Auto)2019-03-01 09:11:00 * Test Item Value Reference Range Interpretation Comments Eosinophils (%) (Auto) (test code = 713-8) 0.3 0.0-6.0 [facility] HospitalBasophils (%) (Auto)2019-03-01 09:11:00* Test Item Value Reference Range Interpretation Comments Basophils (%) (Auto) (test code = 706-2) 0.1 0.0-1.0 [facility] HospitalIM GRANULOCYTES %2019-03-01 09:11:00* Test Item Value Reference Range Interpretation Comments IM GRANULOCYTES % (test code = IM GRANULOCYTES %) 0.7 0.0- 1.0 [facility] HospitalNeutrophils # (Auto)2019-03-01 09:11:00* Test Item Value Reference Range Interpretation Comments Neutrophils # (Auto) (test code = 751-8) 5.4 2.1-6.9 [facility] HospitalLymphocytes # (Auto)2019-03-01 09:11:00* Test Item Value Reference Range Interpretation Comments Lymphocytes # (Auto) (test code = 38312-0) 1.5 1.0-3.2 [facility] HospitalMonocytes # (Auto)2019-03-01 09:11:00* Test Item Value Reference Range Interpretation Comments Monocytes # (Auto) (test code = 742-7) 0.4 0.2-0.8 [facility] HospitalEosinophils # (Auto)2019-03-01 09:11:00* Test Item Value Reference Range Interpretation Comments Eosinophils # (Auto) (test code = 711-2) 0.0 0.0-0.4 [facility] HospitalBasophils # (Auto)2019-03-01 09:11:00* Test Item Value Reference Range Interpretation Comments Basophils # (Auto) (test code = 704-7) 0.0 0.0-0.1 [facility] HospitalAbsolute Immature Granulocyte (auto 2019-03-01 09:11:00* Test Item Value Reference Range Interpretation Comments Absolute Immature Granulocyte (auto (alexa t code = Absolute Immature Granulocyte (auto) 0.05 0-0.1 [facility] HospitalWhite Blood Gtpda2667-18-91 09:11:00* Test Item Value Reference Range Interpretation Comments White Blood Count (test code = 6690-2) 7.43 4.8-10.8 [facility] HospitalRed Blood Pvetd1326-24-65 09:11:00* Test Item Value Reference Range Interpretation Comments Red Blood Count (test code = 789-8) 4.27 3.6-5.1 [facility] HospitalHemoglobin2019-10-01 09:11:00* Test Item Value Reference Range Interpretation Comments Hemoglobin (test code = 58463-8) 12.6 12.0-16.0 [facility] HospitalHematocrit2019-10-01 09:11:00* Test Item Value Reference Range Interpretation Comments Hematocrit (test code = 4544-3) 37.2 34.2-44.1 [facility] HospitalMean Corpuscular Aupkyr4196-14-72 09:11:00* Test Item Value Reference Range Interpretation Comments Mean Corpuscular Volume (test code = 787-2) 87.1 81-99 [facility] HospitalMean Corpuscular Udgvzgepsk9570-95-00 09:11:00* Test Item Value Reference Range Interpretation Comments Mean Corpuscular Hemoglobin (test code = 785-6) 29.5 28-32 [facility] HospitalMean Corpuscular Hemoglobin Concent 2019-03-01 09:11:00* Test Item Value Reference Range Interpretation Comments Mean Corpuscular Hemoglobin Concent (test code = 786-4) 33.9 31-35 [facility] HospitalRed Cell Distribution Glejh3391-39-41 09:11:00* Test Item Value Reference Range Interpretation Comments Red Cell Distribution Width (test code = 68121-8) 13.8 11.7 -14.4 [facility] HospitalPlatelet Tsmmc5544-31-00 09:11:00* Test Item Value Reference Range Interpretation Comments Platelet Count (test code = 777-3) 302 140-360 [facility] HospitalNeutrophils (%) (Auto)2019-03-01 09:11:00 * Test Item Value Reference Range Interpretation Comments Neutrophils (%) (Auto) (test code = 65378-6) 72.5 38.7-80.0 [facility] HospitalLymphocytes (%) (Auto)2019-03-01 09:11:00 * Test Item Value Reference Range Interpretation Comments Lymphocytes (%) (Auto) (test code = 736-9) 20.6 18.0-39.1 [facility] HospitalMonocytes (%) (Auto)2019-03-01 09:11:00* Test Item Value Reference Range Interpretation Comments Monocytes (%) (Auto) (test code = 5905-5) 5.8 4.4-11.3 [facility] HospitalEosinophils (%) (Auto)2019-03-01 09:11:00 * Test Item Value Reference Range Interpretation Comments Eosinophils (%) (Auto) (test code = 713-8) 0.3 0.0-6.0 [facility] HospitalBasophils (%) (Auto)2019-03-01 09:11:00* Test Item Value Reference Range Interpretation Comments Basophils (%) (Auto) (test code = 706-2) 0.1 0.0-1.0 [facility] HospitalIM GRANULOCYTES %2019-03-01 09:11:00* Test Item Value Reference Range Interpretation Comments IM GRANULOCYTES % (test code = IM GRANULOCYTES %) 0.7 0.0- 1.0 [facility] HospitalNeutrophils # (Auto)2019-03-01 09:11:00* Test Item Value Reference Range Interpretation Comments Neutrophils # (Auto) (test code = 751-8) 5.4 2.1-6.9 [facility] HospitalLymphocytes # (Auto)2019-03-01 09:11:00* Test Item Value Reference Range Interpretation Comments Lymphocytes # (Auto) (test code = 94291-7) 1.5 1.0-3.2 [facility] HospitalMonocytes # (Auto)2019-03-01 09:11:00* Test Item Value Reference Range Interpretation Comments Monocytes # (Auto) (test code = 742-7) 0.4 0.2-0.8 [facility] HospitalEosinophils # (Auto)2019-03-01 09:11:00* Test Item Value Reference Range Interpretation Comments Eosinophils # (Auto) (test code = 711-2) 0.0 0.0-0.4 [facility] HospitalBasophils # (Auto)2019-03-01 09:11:00* Test Item Value Reference Range Interpretation Comments Basophils # (Auto) (test code = 704-7) 0.0 0.0-0.1 [facility] HospitalAbsolute Immature Granulocyte (auto 2019-03-01 09:11:00* Test Item Value Reference Range Interpretation Comments Absolute Immature Granulocyte (auto (alexa t code = Absolute Immature Granulocyte (auto) 0.05 0-0.1 [facility] HospitalWhite Blood Fykxt1917-66-19 09:11:00* Test Item Value Reference Range Interpretation Comments White Blood Count (test code = 6690-2) 7.43 4.8-10.8 [facility] HospitalRed Blood Nsjpg7145-44-28 09:11:00* Test Item Value Reference Range Interpretation Comments Red Blood Count (test code = 789-8) 4.27 3.6-5.1 [facility] HospitalHemoglobin2019-10-01 09:11:00* Test Item Value Reference Range Interpretation Comments Hemoglobin (test code = 01894-2) 12.6 12.0-16.0 [facility] HospitalHematocrit2019-10-01 09:11:00* Test Item Value Reference Range Interpretation Comments Hematocrit (test code = 4544-3) 37.2 34.2-44.1 [facility] HospitalMean Corpuscular Rddxzx7224-97-43 09:11:00* Test Item Value Reference Range Interpretation Comments Mean Corpuscular Volume (test code = 787-2) 87.1 81-99 [facility] HospitalMean Corpuscular Cmxgasvitx8353-86-26 09:11:00* Test Item Value Reference Range Interpretation Comments Mean Corpuscular Hemoglobin (test code = 785-6) 29.5 28-32 [facility] HospitalMean Corpuscular Hemoglobin Concent 2019-03-01 09:11:00* Test Item Value Reference Range Interpretation Comments Mean Corpuscular Hemoglobin Concent (test code = 786-4) 33.9 31-35 [facility] HospitalRed Cell Distribution Notfv6324-86-65 09:11:00* Test Item Value Reference Range Interpretation Comments Red Cell Distribution Width (test code = 15704-4) 13.8 11.7 -14.4 [facility] HospitalPlatelet Ppigo7433-82-28 09:11:00* Test Item Value Reference Range Interpretation Comments Platelet Count (test code = 777-3) 302 140-360 [facility] HospitalNeutrophils (%) (Auto)2019-03-01 09:11:00 * Test Item Value Reference Range Interpretation Comments Neutrophils (%) (Auto) (test code = 68534-2) 72.5 38.7-80.0 [facility] HospitalLymphocytes (%) (Auto)2019-03-01 09:11:00 * Test Item Value Reference Range Interpretation Comments Lymphocytes (%) (Auto) (test code = 736-9) 20.6 18.0-39.1 [facility] HospitalMonocytes (%) (Auto)2019-03-01 09:11:00* Test Item Value Reference Range Interpretation Comments Monocytes (%) (Auto) (test code = 5905-5) 5.8 4.4-11.3 [facility] HospitalEosinophils (%) (Auto)2019-03-01 09:11:00 * Test Item Value Reference Range Interpretation Comments Eosinophils (%) (Auto) (test code = 713-8) 0.3 0.0-6.0 [facility] HospitalBasophils (%) (Auto)2019-03-01 09:11:00* Test Item Value Reference Range Interpretation Comments Basophils (%) (Auto) (test code = 706-2) 0.1 0.0-1.0 [facility] HospitalIM GRANULOCYTES %2019-03-01 09:11:00* Test Item Value Reference Range Interpretation Comments IM GRANULOCYTES % (test code = IM GRANULOCYTES %) 0.7 0.0- 1.0 [facility] HospitalNeutrophils # (Auto)2019-03-01 09:11:00* Test Item Value Reference Range Interpretation Comments Neutrophils # (Auto) (test code = 751-8) 5.4 2.1-6.9 [facility] HospitalLymphocytes # (Auto)2019-03-01 09:11:00* Test Item Value Reference Range Interpretation Comments Lymphocytes # (Auto) (test code = 05059-6) 1.5 1.0-3.2 [facility] HospitalMonocytes # (Auto)2019-03-01 09:11:00* Test Item Value Reference Range Interpretation Comments Monocytes # (Auto) (test code = 742-7) 0.4 0.2-0.8 [facility] HospitalEosinophils # (Auto)2019-03-01 09:11:00* Test Item Value Reference Range Interpretation Comments Eosinophils # (Auto) (test code = 711-2) 0.0 0.0-0.4 [facility] HospitalBasophils # (Auto)2019-03-01 09:11:00* Test Item Value Reference Range Interpretation Comments Basophils # (Auto) (test code = 704-7) 0.0 0.0-0.1 [facility] HospitalAbsolute Immature Granulocyte (auto 2019-03-01 09:11:00* Test Item Value Reference Range Interpretation Comments Absolute Immature Granulocyte (auto (alexa t code = Absolute Immature Granulocyte (auto) 0.05 0-0.1 [facility] HospitalCHEST SINGLE (NOT PORTABLE)2019-03-01 09:11:00 [facility] [address] [place] [address] Patient Name: ANGELA ESPINOSA MR #: [id number] : 1975 Age/Sex: 43/F Req #: [id number] Adm Physician: Ordered by: NATALIA AVILA DO Report #: [id number] Location: ER Room/Bed: Procedure: [id number] DX/CHEST SINGLE (NOT PORTABLE) Exam Date: 03/01/19 E xam Time: 829 REPORT STATUS: Inés d EXAMINATION: CHEST SINGLE (NOT PORTABLE) INDICATION: Chest pain COMPARISON: None FINDINGS: LINES/TUBES:None LUNGS:The marga ngs are well-inflated. No focal consolidation or pulmonary edema. PLEURA:No pleural effusion or pneumothorax. MEDIASTINUM:The cardiomediastinal silhou ette appears normal in size and shape. BONES/SOFT TISSUES:No acute osseous injury. ABDOMEN:No free air under the diaphragm. IMPRESSION: No focal pneumonia or pulmonary edema. Signed by: Leta Krueger MD on 03/01/2019 9:12 AM Dictated By: LETA KRUEGER MD 1 Transcribed By: LULU on 03/01/19911 COPY TO: NATALIA MINOR DO Urine Opiates Iztneh8845-25-06 08:45:00* Test Item Value Reference Range Interpretation Comments Urine Opiates Screen (test code = 68066-1) N NEGATIVE ALL TESTS PERFORMED MANUALLY ON Podclass TOX/SEE TESTCH[facility] ResourcesUrine Barbiturates Dmsbta3420-44-63 08:45:00* Test Item Value Reference Range Interpretation Comments Urine Barbiturates Screen (test code = 623440763) N NEGA TIVE [facility] ResourcesUrine Phencyclidine Wslofb0961-89-34 08:45:00* Test Item Value Reference Range Interpretation Comments Urine Phencyclidine Screen (test code = 97304-6) N NEGAT HENRY [facility] HospitalUrine Amphetamines Fxxbgq5694-44-09 08:45:00* Test Item Value Reference Range Interpretation Comments Urine Amphetamines Screen (test code = 69342-5) N NEGATI VE [facility] HospitalUrine Methamphetamines Wdqeja7173-67-15 08:45:00* Test Item Value Reference Range Interpretation Comments Urine Methamphetamines Screen (test code = Urine Methampheta mines Screen) N NEGATIVE [facility] HospitalUrine Benzodiazepines Mvkmxe4462-39-92 08:45:00* Test Item Value Reference Range Interpretation Comments Urine Benzodiazepines Screen (test code = 54311-7) P NEG ATIVE [facility] HospitalUrine Cocaine Lynvji2641-47-39 08:45:00* Test Item Value Reference Range Interpretation Comments Urine Cocaine Screen (test code = 3398-5) N NEGATIVE [facility] HospitalUrine Cannabinoids Gmdvdi1301-40-39 08:45:00* Test Item Value Reference Range Interpretation Comments Urine Cannabinoids Screen (test code = 09874-0) P NEGATI VE THESE RESULTS ARE FOR MEDICAL TREATMENT ONLYTHIS REPORT CONTAINS UNCONFIR MED SCREENING RESULTS*POSITIVE RESULTS WILL BE CONFIRMED BY REFERENCE LAB UPON R EQUEST CUT-OFFDRUG CLASS CONCENTRATION ng/mLAmphetamines 1000Methamphetamines 1000Cocaine 300Opiate 300Phencyc lidine 25Cannabinoid 50Barbiturates 300Benzodiazepine 300Methadone 300[facility] ResourcesUrine Methadone Oglvzl4607-63-51 08:45:00* Test Item Value Reference Range Interpretation Comments Urine Methadone Screen (test code = 16675-1) N NEGATIVE [facility] HospitalUrine Chqp3355-06-11 08:45:00* Test Item Value Reference Range Interpretation Comments Urine Test (test code = 2106-3) NEGATIVE NEGATIVE [facility] HospitalUrine Opiates Ebvezf7214-88-24 08:45:00* Test Item Value Reference Range Interpretation Comments Urine Opiates Screen (test code = 77942-0) N NEGATIVE ALL TESTS PERFORMED MANUALLY ON Podclass TOX/SEE TESTMemorial Hermann Cypress HospitalUrine Barbiturates Rwvoyr8069-02-25 08:45:00* Test Item Value Reference Range Interpretation Comments Urine Barbiturates Screen (test code = 114505468) N NEGA TIVE [facility] HospitalUrine Phencyclidine Cvrzbr2879-96-45 08:45:00* Test Item Value Reference Range Interpretation Comments Urine Phencyclidine Screen (test code = 58124-4) N NEGAT HENRY [facility] HospitalUrine Amphetamines Whpskv3922-92-67 08:45:00* Test Item Value Reference Range Interpretation Comments Urine Amphetamines Screen (test code = 58546-3) N NEGATI VE [facility] HospitalUrine Methamphetamines Jbqdez7167-87-46 08:45:00* Test Item Value Reference Range Interpretation Comments Urine Methamphetamines Screen (test code = Urine Methampheta mines Screen) N NEGATIVE [facility] HospitalUrine Benzodiazepines Eetdxo0267-52-19 08:45:00* Test Item Value Reference Range Interpretation Comments Urine Benzodiazepines Screen (test code = 61783-6) P NEG ATIVE [facility] HospitalUrine Cocaine Yitlvg0540-94-62 08:45:00* Test Item Value Reference Range Interpretation Comments Urine Cocaine Screen (test code = 3398-5) N NEGATIVE [facility] HospitalUrine Cannabinoids Inysbi2288-16-79 08:45:00* Test Item Value Reference Range Interpretation Comments Urine Cannabinoids Screen (test code = 58946-4) P NEGATI VE THESE RESULTS ARE FOR MEDICAL TREATMENT ONLYTHIS REPORT CONTAINS UNCONFIR MED SCREENING RESULTS*POSITIVE RESULTS WILL BE CONFIRMED BY REFERENCE LAB UPON R EQUEST CUT-OFFDRUG CLASS CONCENTRATION ng/mLAmphetamines 1000Methamphetamines 1000Cocaine 300Opiate 300Phencyc lidine 25Cannabinoid 50Barbiturates 300Benzodiazepine 300Methadone 300[facility] ResourcesUrine Methadone Zhdizr3114-03-48 08:45:00* Test Item Value Reference Range Interpretation Comments Urine Methadone Screen (test code = 55824-5) N NEGATIVE [facility] HospitalUrine Awiz8974-89-49 08:45:00* Test Item Value Reference Range Interpretation Comments Urine Test (test code = 2106-3) NEGATIVE NEGATIVE [facility] HospitalUrine Opiates Cywlzu1469-79-84 08:45:00* Test Item Value Reference Range Interpretation Comments Urine Opiates Screen (test code = 92330-9) N NEGATIVE ALL TESTS PERFORMED MANUALLY ON BIORAD TOX/SEE TESTMem[facility] Hermann Cypress HospitalUrine Barbiturates Gkurqr9951-25-77 08:45:00* Test Item Value Reference Range Interpretation Comments Urine Barbiturates Screen (test code = 926959179) N NEGA TIVE [facility] HospitalU[facility] Phencyclidine Bwyeme2794-70-53 08:45:00* Test Item Value Reference Range Interpretation Comments Urine Phencyclidine Screen (test code = 44194-9) N NEGAT HENRY [facility] HospitalUrine Amphetamines Nyeeof0019-35-57 08:45:00* Test Item Value Reference Range Interpretation Comments Urine Amphetamines Screen (test code = 73177-6) N NEGATI VE [facility] HospitalU[facility] Methamphetamines Dtesar6063-03-19 08:45:00* Test Item Value Reference Range Interpretation Comments Urine Methamphetamines Screen (test code = Urine Methampheta mines Screen) N NEGATIVE [facility] HospitalU[facility] Benzodiazepines Xodppb3820-27-47 08:45:00* Test Item Value Reference Range Interpretation Comments Urine Benzodiazepines Screen (test code = 77785-4) P NEG ATIVE [facility] HospitalU[facility] Cocaine Vjebov3796-57-02 08:45:00* Test Item Value Reference Range Interpretation Comments Urine Cocaine Screen (test code = 3398-5) N NEGATIVE [facility] HospitalU[facility] Cannabinoids Slocav0685-66-99 08:45:00* Test Item Value Reference Range Interpretation Comments Urine Cannabinoids Screen (test code = 66976-0) P NEGATI VE THESE RESULTS ARE FOR MEDICAL TREATMENT ONLYTHIS REPORT CONTAINS UNCONFIR MED SCREENING RESULTS*POSITIVE RESULTS WILL BE CONFIRMED BY REFERENCE LAB UPON R EQUEST CUT-OFFDRUG CLASS CONCENTRATION ng/mLAmphetamines 1000Methamphetamines 1000Cocaine 300Opiate 300Phencyc lidine 25Cannabinoid 50Barbiturates 300Benzodiazepine 300Methadone 300[facility] Methadone Xdhluh2334-82-18 08:45:00* Test Item Value Reference Range Interpretation Comments Urine Methadone Screen (test code = 27391-4) N NEGATIVE [facility] ResourcesCT ABDOMEN/PELVIS N5231-65-43 15:40:00 [facility] [address] [address] Patient Name: ANGELA ESPINOSA MR #: [id number] : 1975 Age/Sex: 43/F Req #: [id number] Adm Physician: Ordered by: NATALIA AVILA DO Report #: [id number] Location: ER Room/Bed: Procedure: [id number] CT/CT ABDOMEN/PELVIS W Exam Date: 02/26/19 Exam Time : 1420 REPORT STATUS: Signed EXA M: CT Abdomen and Pelvis WITH contrast INDICATION: Urinary tract infection, abdominal pain COMPARISON: Abdominal CT 11/11/2018, 10/01/2018. TECHNIQUE: Ab domen and pelvis were scanned utilizing a multidetector helical scanner from t he lung base to the pubic symphysis after administration of IV contrast. Coron al and sagittal reformations were obtained. Routine protocol was performed. Sc an was performed when during portal venous phase. IV CONTRAST: 100 mL of Isovue 370 ORAL CONTRAST: Water COMPLICATIONS: None RADIATION DOSE: Total DLP: 907 mGy*cm Estimated effective dose: (DLP x 0.015 x size factor) mSv CTDIvol has been reviewed. It is below the limits set by the Radiation Protocol Committee (RPC). Dose modulat ion, iterative reconstruction, and/or weight based adjustment of the mA/kV was utilized to reduce the radiation dose to as low as reasonably achievable. FINDINGS: LINES and TUBES: None. LOWER THORAX: Bibasilar atelectas is. HEPATOBILIARY: Enlarged liver with decreased hepatic attenuation. No f ocal hepatic lesions. No biliary ductal dilation. GALLBLADDER: There are cholecystectomy clips. SPLEEN: No splenomegaly. PANCREAS: No focal masses or ductal dilatation. ADRENALS: No adrenal nodules KIDNE YS/URETERS: Kidneys enhance symmetrically. No hydronephrosis. Small cyst in t he left kidney. Mild scarring/lobulation of the left renal superior pole. Pun ctate nonobstructive calculi in the bilateral kidneys. GI TRACT: No abnorm al distention, wall thickening, or evidence of bowel obstruction. Append ix is normal. PELVIC ORGANS/BLADDER: Mild circumferential bladder wall thic kening and minimal perivesicular fat stranding. Hysterectomy. No adnexal dinah s. LYMPH NODES: No lymphadenopathy. VESSELS: Unremarkable. PERIT ONEUM / RETROPERITONEUM: No free air or fluid. BONES: Degenerative changes in the spine hips and pelvis. Bone islands in the L5 vertebral body. SOFT TISSUES: Mild supraumbilical subcutaneous stranding with evidence of umbilical hernia repair. No evidence of persistent hernia.. IMPRESSION: 1. B ladder findings can be seen in the setting of urinary bladder cystitis. 2. He patomegaly with hepatic steatosis. Signed by: Tariq Rodriguez DO on 02/27/20 3:47 PM Dictated By: TARIQ RODRIGUEZ DO 46 Transcribed By: LULU on 02/26/191546 COPY TO: NATALIA AVILA DO Sodium Aihbj2640-67-79 14:00:00* Test Item Value Reference Range Interpretation Comments Sodium Level (test code = 2951-2) 140 136-145 [facility] HospitalPotassium Ypksl9904-63-82 14:00:00* Test Item Value Reference Range Interpretation Comments Potassium Level (test code = 2823-3) 3.7 3.5-5.1 [facility] HospitalChloride Jetku7436-24-95 14:00:00* Test Item Value Reference Range Interpretation Comments Chloride Level (test code = 2075-0) 108 98-107 H [facility] HospitalCarbon Dioxide Tiyxg9910-06-54 14:00:00* Test Item Value Reference Range Interpretation Comments Carbon Dioxide Level (test code = 8-9) 23 22-29 [facility] HospitalAnion Leh3199-75-18 14:00:00* Test Item Value Reference Range Interpretation Comments Anion Gap (test code = 73981-6) 12.7 8-16 [facility] HospitalBlood Urea Udlewrzg3523-90-20 14:00:00* Test Item Value Reference Range Interpretation Comments Blood Urea Nitrogen (test code = 3094-0) 9 7-26 [facility] HospitalCreatinine2019-09-28 14:00:00* Test Item Value Reference Range Interpretation Comments Creatinine (test code = 2160-0) 0.93 0.57-1.11 [facility] HospitalBUN/Creatinine Nwgdn1016-53-42 14:00:00* Test Item Value Reference Range Interpretation Comments BUN/Creatinine Ratio (test code = 3097-3) 10 6-25 [facility] HospitalEstimat Glomerular Filtration Rate 2019-02-26 14:00:00* Test Item Value Reference Range Interpretation Comments Estimat Glomerular Filtration Rate (test code = 080739825) > 60 >60 Ranges were taken from the National Kidney Disease Education Program and the [facility] [employer] literature.Reference ranges:60 or greater: Cnaljf36-14 ( for 3 consecutive months): Chronic kidney disease 15 or less: Kidney failureMemorial Hermann Cypress HospitalGlucose Fpxux9664-84-10 14:00:00* Test Item Value Reference Range Interpretation Comments Glucose Level (test code = MCO7460) 84 74-118 [facility] HospitalCalcium Wmicp1066-66-73 14:00:00* Test Item Value Reference Range Interpretation Comments Calcium Level (test code = 62867-0) 9.3 8.4-10.2 [facility] HospitalTotal Widtyrpno3488-01-53 14:00:00* Test Item Value Reference Range Interpretation Comments Total Bilirubin (test code = 1975-2) 0.3 0.2-1.2 [facility] HospitalAspartate Amino Transf (AST/SGOT) 2019-02-26 14:00:00* Test Item Value Reference Range Interpretation Comments Aspartate Amino Transf (AST/SGOT) (test code = Aspartate Amino Transf (AST/SGOT)) 17 5-34 [facility] HospitalAlanine Aminotransferase (ALT/SGPT) 2019-02-26 14:00:00* Test Item Value Reference Range Interpretation Comments Alanine Aminotransferase (ALT/SGPT) (test code = 1742-6) 23 0-55 [facility] HospitalTotal Whvckod9252-92-55 14:00:00* Test Item Value Reference Range Interpretation Comments Total Protein (test code = 2885-2) 6.5 6.5-8.1 [facility] HospitalAlbumin2019-09-28 14:00:00* Test Item Value Reference Range Interpretation Comments Albumin (test code = 1751-7) 3.5 3.5-5.0 [facility] HospitalGlobulin2019-09-28 14:00:00* Test Item Value Reference Range Interpretation Comments Globulin (test code = 53879-4) 3.0 2.3-3.5 [facility] HospitalAlbumin/Globulin Setik7770-15-54 14:00:00 * Test Item Value Reference Range Interpretation Comments Albumin/Globulin Ratio (test code = 1759-0) 1.2 0.8-2.0 [facility] HospitalAlkaline Zcmmhxbxkqd3299-36-07 14:00:00* Test Item Value Reference Range Interpretation Comments Alkaline Phosphatase (test code = 6768-6) 96 40-150 [facility] HospitalUrine TEL2975-49-60 13:14:00* Test Item Value Reference Range Interpretation Comments Urine WBC (test code = 5821-4) 0-5 0-5 [facility] HospitalUrine EJI1346-03-88 13:14:00* Test Item Value Reference Range Interpretation Comments Urine RBC (test code = 41849-1) 0-5 0-5 [facility] HospitalUrine Vnhmefdw3764-16-74 13:14:00* Test Item Value Reference Range Interpretation Comments Urine Bacteria (test code = 81098-9) FEW NONE [facility] HospitalUrine Epithelial Sonnp2494-18-93 13:14:00 * Test Item Value Reference Range Interpretation Comments Urine Epithelial Cells (test code = 98688-2) FEW NONE [facility] HospitalUrine Calcium Oxalate Metuxugk5373-94-94 13:14:00* Test Item Value Reference Range Interpretation Comments Urine Calcium Oxalate Crystals (test code = 5774-5) [facility]W [facility] GAF5455-20-42 13:14:00* Test Item Value Reference Range Interpretation Comments Urine WBC (test code = 5821-4) 0-5 0-5 [facility] HospitalUrine YCZ7219-60-71 13:14:00* Test Item Value Reference Range Interpretation Comments Urine RBC (test code = 01588-1) 0-5 0-5 [facility] HospitalUrine Kwboinji2512-20-47 13:14:00* Test Item Value Reference Range Interpretation Comments Urine Bacteria (test code = 08046-6) [facility]helial Ewejg8950-45-05 13:14:00 * Test Item Value Reference Range Interpretation Comments Urine Epithelial Cells (test code = 74486-4) FEW [facility] Calcium Oxalate Uknvfmyl7208-95-13 13:14:00* Test Item Value Reference Range Interpretation Comments Urine Calcium Oxalate Crystals (test code = 5774-5) FEW [facility] Cal[facility] Oxalate Evyiokbb1015-00-12 13:14:00* Test Item Value Reference Range Interpretation Comments Urine Calcium Oxalate Crystals (test code = 5774-5) FEW [facility] CenterU[facility] Calcium Oxalate Iluajzyw0109-55-25 13:14:00* Test Item Value Reference Range Interpretation Comments Urine Calcium Oxalate Crystals (test code = 5774-5) FEW [facility] Cal[facility] Oxalate Hjuczwhx5771-60-45 13:14:00* Test Item Value Reference Range Interpretation Comments Urine Calcium Oxalate Crystals (test code = 5774-5) FEW [facility] CenterWhite Blood Imfhz1035-54-04 13:12:00* Test Item Value Reference Range Interpretation Comments White Blood Count (test code = 6690-2) 7.29 4.8-10.8 [facility] HospitalRed Blood Gzuwj1654-60-12 13:12:00* Test Item Value Reference Range Interpretation Comments Red Blood Count (test code = 789-8) 4.27 3.6-5.1 [facility] HospitalHemoglobin2019-09-28 13:12:00* Test Item Value Reference Range Interpretation Comments Hemoglobin (test code = 05340-5) 12.5 12.0-16.0 [facility] HospitalHematocrit2019-09-28 13:12:00* Test Item Value Reference Range Interpretation Comments Hematocrit (test code = 4544-3) 36.8 34.2-44.1 [facility] HospitalMean Corpuscular Vxznoa3248-15-86 13:12:00* Test Item Value Reference Range Interpretation Comments Mean Corpuscular Volume (test code = 787-2) 86.2 81-99 [facility] HospitalMean Corpuscular Mphizkqubm9817-09-66 13:12:00* Test Item Value Reference Range Interpretation Comments Mean Corpuscular Hemoglobin (test code = 785-6) 29.3 28-32 [facility] HospitalMean Corpuscular Hemoglobin Concent 2019-02-26 13:12:00* Test Item Value Reference Range Interpretation Comments Mean Corpuscular Hemoglobin Concent (test code = 786-4) 34.0 31-35 [facility] HospitalRed Cell Distribution Jtdsa1291-73-71 13:12:00* Test Item Value Reference Range Interpretation Comments Red Cell Distribution Width (test code = 65678-7) 13.5 11.7 -14.4 [facility] HospitalPlatelet Jtcta4509-18-46 13:12:00* Test Item Value Reference Range Interpretation Comments Platelet Count (test code = 777-3) 308 140-360 [facility] HospitalNeutrophils (%) (Auto)2019-02-26 13:12:00 * Test Item Value Reference Range Interpretation Comments Neutrophils (%) (Auto) (test code = 58536-8) 68.2 38.7-80.0 [facility] HospitalLymphocytes (%) (Auto)2019-02-26 13:12:00 * Test Item Value Reference Range Interpretation Comments Lymphocytes (%) (Auto) (test code = 736-9) 24.6 18.0-39.1 [facility] HospitalMonocytes (%) (Auto)2019-02-26 13:12:00* Test Item Value Reference Range Interpretation Comments Monocytes (%) (Auto) (test code = 5905-5) 5.3 4.4-11.3 [facility] HospitalEosinophils (%) (Auto)2019-02-26 13:12:00 * Test Item Value Reference Range Interpretation Comments Eosinophils (%) (Auto) (test code = 713-8) 1.5 0.0-6.0 [facility] HospitalBasophils (%) (Auto)2019-02-26 13:12:00* Test Item Value Reference Range Interpretation Comments Basophils (%) (Auto) (test code = 706-2) 0.1 0.0-1.0 [facility] HospitalIM GRANULOCYTES %2019-02-26 13:12:00* Test Item Value Reference Range Interpretation Comments IM GRANULOCYTES % (test code = IM GRANULOCYTES %) 0.3 0.0- 1.0 [facility] HospitalNeutrophils # (Auto)2019-02-26 13:12:00* Test Item Value Reference Range Interpretation Comments Neutrophils # (Auto) (test code = 751-8) 5.0 2.1-6.9 [facility] HospitalLymphocytes # (Auto)2019-02-26 13:12:00* Test Item Value Reference Range Interpretation Comments Lymphocytes # (Auto) (test code = 83953-0) 1.8 1.0-3.2 [facility] HospitalMonocytes # (Auto)2019-02-26 13:12:00* Test Item Value Reference Range Interpretation Comments Monocytes # (Auto) (test code = 742-7) 0.4 0.2-0.8 [facility] HospitalEosinophils # (Auto)2019-02-26 13:12:00* Test Item Value Reference Range Interpretation Comments Eosinophils # (Auto) (test code = 711-2) 0.1 0.0-0.4 [facility] HospitalBasophils # (Auto)2019-02-26 13:12:00* Test Item Value Reference Range Interpretation Comments Basophils # (Auto) (test code = 704-7) 0.0 0.0-0.1 [facility] HospitalAbsolute Immature Granulocyte (auto 2019-02-26 13:12:00* Test Item Value Reference Range Interpretation Comments Absolute Immature Granulocyte (auto (alexa t code = Absolute Immature Granulocyte (auto) 0.02 0-0.1 [facility] HospitalLipase2019-09-28 13:07:00* Test Item Value Reference Range Interpretation Comments Lipase (test code = 3040-3) 38 8-78 [facility] HospitalUrine Vryae4896-48-54 12:55:00* Test Item Value Reference Range Interpretation Comments Urine Color (test code = 5778-6) YELLOW YELLOW [facility] HospitalUrine Ogttjfd9064-01-52 12:55:00* Test Item Value Reference Range Interpretation Comments Urine Clarity (test code = 34443-7) CLEAR CLEAR [facility] HospitalUrine Specific Aefakbp7041-30-13 12:55:00 * Test Item Value Reference Range Interpretation Comments Urine Specific [place] (test code = 5811-5) >=1.030 1.010-1.02 5 [facility] HospitalUrine aL6158-84-91 12:55:00* Test Item Value Reference Range Interpretation Comments Urine pH (test code = 50232-1) 6.5 5-7 [facility] HospitalUrine Leukocyte Dnsazegt3499-92-23 12:55:00* Test Item Value Reference Range Interpretation Comments Urine Leukocyte Esterase (test code = 97945-4) NEGATIVE NEGATIV E [facility] HospitalUrine Vonbqqf3521-51-08 12:55:00* Test Item Value Reference Range Interpretation Comments Urine Nitrite (test code = 97430-1) NEGATIVE NEGATIVE [facility] HospitalUrine Uqqbjfa8742-97-18 12:55:00* Test Item Value Reference Range Interpretation Comments Urine Protein (test code = 95726-0) TRACE NEGATIVE H [facility] HospitalUrine Glucose (UA)2019-02-26 12:55:00* Test Item Value Reference Range Interpretation Comments Urine Glucose (UA) (test code = 24564-2) NEGATIVE NEGATIVE [facility] HospitalUrine Suiwavn9300-09-24 12:55:00* Test Item Value Reference Range Interpretation Comments Urine Ketones (test code = 75438-6) NEGATIVE NEGATIVE [facility] HospitalUrine Fhadsxkslpim9948-67-86 12:55:00* Test Item Value Reference Range Interpretation Comments Urine Urobilinogen (test code = 49090-4) 0.2 0.2-1 [facility] HospitalUrine Cxmwljjnz0901-21-25 12:55:00* Test Item Value Reference Range Interpretation Comments Urine Bilirubin (test code = 1977-8) NEGATIVE NEGATIVE [facility] HospitalUrine Nwefs8227-40-63 12:55:00* Test Item Value Reference Range Interpretation Comments Urine Blood (test code = 50247-9) NEGATIVE NEGATIVE [facility] HospitalUrine Yqdkt6098-92-46 12:55:00* Test Item Value Reference Range Interpretation Comments Urine Color (test code = 5778-6) YELLOW YELLOW [facility] HospitalUrine Lyirmak8492-01-41 12:55:00* Test Item Value Reference Range Interpretation Comments Urine Clarity (test code = 89009-9) CLEAR CLEAR [facility] HospitalUrine Specific Kohlpya6841-50-21 12:55:00 * Test Item Value Reference Range Interpretation Comments Urine Specific [place] (test code = 5811-5) >=1.030 1.010-1.02 5 [facility] HospitalUrine cX3073-94-33 12:55:00* Test Item Value Reference Range Interpretation Comments Urine pH (test code = 42976-1) 6.5 5-7 [facility] HospitalUrine Leukocyte Efxrcmpc2288-88-59 12:55:00* Test Item Value Reference Range Interpretation Comments Urine Leukocyte Esterase (test code = 13530-1) NEGATIVE NEGATIV E [facility] HospitalUrine Ajshzeg3045-61-40 12:55:00* Test Item Value Reference Range Interpretation Comments Urine Nitrite (test code = 97528-5) NEGATIVE NEGATIVE [facility] HospitalUrine Yxidfrt7192-87-19 12:55:00* Test Item Value Reference Range Interpretation Comments Urine Protein (test code = 42353-9) TRACE NEGATIVE H [facility] Glucose (UA)2019-02-26 12:55:00* Test Item Value Reference Range Interpretation Comments Urine Glucose (UA) (test code = 60812-4) NEGATIVE NEGATIVE [facility] HospitalUrine Azxkuey4566-16-74 12:55:00* Test Item Value Reference Range Interpretation Comments Urine Ketones (test code = 69381-1) NEGATIVE NEGATIVE [facility] Eicbpivnsqfr4749-67-09 12:55:00* Test Item Value Reference Range Interpretation Comments Urine Urobilinogen (test code = 01652-5) 0.2 0.2-1 [facility] Txcfisehu5172-89-42 12:55:00* Test Item Value Reference Range Interpretation Comments Urine Bilirubin (test code = 1977-8) NEGATIVE NEGATIVE [facility] Rlszc9623-55-83 12:55:00* Test Item Value Reference Range Interpretation Comments Urine Blood (test code = 79378-5) NEGATIVE NEGATIVE [facility] HospitalLIVER FUNCTION NFUGK5259-87-01 09:03:00* Test Item Value Reference Range Interpretation Comments TOTAL PROTEIN (test code = PROT) 6.4 g/dL 6.3-8.3 N ALBUMIN (test code = ALB) 3.9 G/DL 3.5-5.0 N BILIRUBIN TOTAL (test code = BILT) 0.2 mg/dL 0.2-1.0 N BILIRUBIN DIRECT (test code = BILD) <0.2 mg/dL 0.0-0.2 N SGOT/AST (test code = AST) 9 IU/L 10-34 L SGPT/ALT (test code = ALT) 14 U/L 10-36 N ALKALINE PHOSPHATASE (test code = ALKP) 98 U/L 32-104 N NGOGFT2290-23-00 09:03:00* Test Item Value Reference Range Interpretation Comments LIPASE (test code = LIP) 42 U/L 0-190 N URINALYSIS GUTMZKWA0134-41-84 08:56:00* Test Item Value Reference Range Interpretation Comments UA COLOR (test code = COLU) YELLOW DISCRIPT YELLOW UA APPEARANCE (test code = APPU) SLIGHTLY CLOUDY DISCRIPT CLEAR A UA GLUCOSE DIPSTICK (test code = DGLUU) NEGATIVE mg/dL NEGATIVE UA BILIRUBIN DIPSTICK (test code = BILU) NEGATIVE NEGATIVE UA KETONE DIPSTICK (test code = KETU) NEGATIVE mg/dL NEGATIVE UA SPECIFIC GRAVITY (test code = SGU) <=1.005 1.005-1.030 A UA BLOOD DIPSTICK (test code = MAT) MODERATE NEGATIVE A UA PH DIPSTICK (test code = CHARISMA) 6.0 5.0-9.0 UA PROTEIN DIPSTICK (test code = PROU) NEGATIVE mg/dL NEGATIVE UA UROBILINOGEN DIPSTICK (test code = URO) 0.2 mg/dL 0.2-1.0 UA NITRITE DIPSTICK (test code = MANDI) POSITIVE NEGATIVE A UA LEUKOCYTE ESTERASE DIPSTICK (test code = LEUU) SMALL NEGA TIVE A UA QOHRZGSXOCV6636-15-64 08:56:00* Test Item Value Reference Range Interpretation Comments UA WBC (test code = WBCU) 0-2 #WBC/HPF 0-2 UA RBC (test code = RBCU) 0-2 #RBC/HPF 0-2 UA BACTERIA (test code = BACU) 1+ /HPF NONE-TRACE A UA SQUAMOUS CELLS (test code = SQU) 1+ /LPF NONE-TRACE A UR HCG INMQ4590-85-53 08:56:00* Test Item Value Reference Range Interpretation Comments UR HCG QUAL (test code = HCGQLU) NEGATIVE NEGATIVE URINALYSIS GVNVVFOQ0031-54-96 08:52:00* Test Item Value Reference Range Interpretation Comments UA COLOR (test code = COLU) YELLOW DISCRIPT YELLOW UA APPEARANCE (test code = APPU) SLIGHTLY CLOUDY DISCRIPT CLEAR A UA GLUCOSE DIPSTICK (test code = DGLUU) NEGATIVE mg/dL NEGATIVE UA BILIRUBIN DIPSTICK (test code = BILU) NEGATIVE NEGATIVE UA KETONE DIPSTICK (test code = KETU) NEGATIVE mg/dL NEGATIVE UA SPECIFIC GRAVITY (test code = SGU) <=1.005 1.005-1.030 A UA BLOOD DIPSTICK (test code = MAT) MODERATE NEGATIVE A UA PH DIPSTICK (test code = CHARISMA) 6.0 5.0-9.0 UA PROTEIN DIPSTICK (test code = PROU) NEGATIVE mg/dL NEGATIVE UA UROBILINOGEN DIPSTICK (test code = URO) 0.2 mg/dL 0.2-1.0 UA NITRITE DIPSTICK (test code = MANDI) POSITIVE NEGATIVE A UA LEUKOCYTE ESTERASE DIPSTICK (test code = LEUU) SMALL NEGA TIVE A UA YHQMGGKLBYH1768-44-62 08:52:00* Test Item Value Reference Range Interpretation Comments UA WBC (test code = WBCU) #WBC/HPF 0-2 UA RBC (test code = RBCU) #RBC/HPF 0-2 UA BACTERIA (test code = BACU) /HPF NONE-TRACE UA SQUAMOUS CELLS (test code = SQU) /LPF NONE-TRACE UR HCG [id number] 08:52:00* Test Item Value Reference Range Interpretation Comments UR HCG QUAL (test code = HCGQLU) NEGATIVE URINALYSIS VCTGQMLL8088-59-30 08:52:00* Test Item Value Reference Range Interpretation Comments UA COLOR (test code = COLU) YELLOW DISCRIPT YELLOW UA APPEARANCE (test code = APPU) SLIGHTLY CLOUDY DISCRIPT CLEAR A UA GLUCOSE DIPSTICK (test code = DGLUU) NEGATIVE mg/dL NEGATIVE UA BILIRUBIN DIPSTICK (test code = BILU) NEGATIVE NEGATIVE UA KETONE DIPSTICK (test code = KETU) NEGATIVE mg/dL NEGATIVE UA SPECIFIC GRAVITY (test code = SGU) <=1.005 1.005-1.030 A UA BLOOD DIPSTICK (test code = MAT) MODERATE NEGATIVE A UA PH DIPSTICK (test code = CHARISMA) 6.0 5.0-9.0 UA PROTEIN DIPSTICK (test code = PROU) NEGATIVE mg/dL NEGATIVE UA UROBILINOGEN DIPSTICK (test code = URO) 0.2 mg/dL 0.2-1.0 UA NITRITE DIPSTICK (test code = MANDI) POSITIVE NEGATIVE A UA LEUKOCYTE ESTERASE DIPSTICK (test code = LEUU) SMALL NEGA TIVE A UA QRMZQBZWNVS6465-75-35 08:52:00* Test Item Value Reference Range Interpretation Comments UA WBC (test code = WBCU) #WBC/HPF 0-2 UA RBC (test code = RBCU) #RBC/HPF 0-2 UA BACTERIA (test code = BACU) /HPF NONE-TRACE UA SQUAMOUS CELLS (test code = SQU) /LPF NONE-TRACE UR HCG [id number] 08:52:00* Test Item Value Reference Range Interpretation Comments UR HCG QUAL (test code = HCGQLU) NEGATIVE NEGATIVE URINALYSIS [id number] 08:52:00* Test Item Value Reference Range Interpretation Comments UA COLOR (test code = COLU) YELLOW DISCRIPT YELLOW UA APPEARANCE (test code = APPU) SLIGHTLY CLOUDY DISCRIPT CLEAR A UA GLUCOSE DIPSTICK (test code = DGLUU) NEGATIVE mg/dL NEGATIVE UA BILIRUBIN DIPSTICK (test code = BILU) NEGATIVE NEGATIVE UA KETONE DIPSTICK (test code = KETU) NEGATIVE mg/dL NEGATIVE UA SPECIFIC GRAVITY (test code = SGU) <=1.005 1.005-1.030 A UA BLOOD DIPSTICK (test code = MAT) MODERATE NEGATIVE A UA PH DIPSTICK (test code = CHARISMA) 6.0 5.0-9.0 UA PROTEIN DIPSTICK (test code = PROU) NEGATIVE mg/dL NEGATIVE UA UROBILINOGEN DIPSTICK (test code = URO) 0.2 mg/dL 0.2-1.0 UA NITRITE DIPSTICK (test code = MANDI) POSITIVE NEGATIVE A UA LEUKOCYTE ESTERASE DIPSTICK (test code = LEUU) SMALL NEGA TIVE A UA [id number] 08:52:00* Test Item Value Reference Range Interpretation Comments UA WBC (test code = WBCU) #WBC/HPF 0-2 UA RBC (test code = RBCU) #RBC/HPF 0-2 UA BACTERIA (test code = BACU) /HPF NONE-TRACE UA SQUAMOUS CELLS (test code = SQU) /LPF NONE-TRACE UR HCG [id number] 08:52:00* Test Item Value Reference Range Interpretation Comments UR HCG QUAL (test code = HCGQLU) NEGATIVE LACTIC ACID [id number] 08:40:00* Test Item Value Reference Range Interpretation Comments LACTIC ACID POC (test code = LACTP) 1.59 mmol/L 0.9-1.70 N CBC W/AUTO [id number] 08:38:00* Test Item Value Reference Range Interpretation Comments WHITE BLOOD CELL (test code = WBC) 5.6 x10 3/uL 4.8-10.8 N RED BLOOD CELL (test code = RBC) 4.32 x10 6/uL 4.20-5.40 N HEMOGLOBIN (test code = HGB) 12.5 g/dL 14.5-20 L HEMATOCRIT (test code = HCT) 38.0 % 37.0-47.0 N MEAN CELL VOLUME (test code = MCV) 88.0 fL 81.0-99.0 N MEAN CELL HGB (test code = MCH) 28.9 pg 27-31 N MEAN CELL HGB CONCENTRATION (test code = MCHC) 32.9 G/DL 33-36.5 L RED CELL DISTRIBUTION WIDTH (test code = RDW) 13.4 % 12.9-16. 9 N PLATELET COUNT (test code = PLT) 305 150-440 N MEAN PLATELET VOLUME (test code = MPV) 9.2 fL 8.9-12.4 N NEUTROPHIL % (test code = NT%) 63.6 % 42.2-75.2 N LYMPHOCYTE % (test code = LY%) 26.8 % 20.5-51.1 N MONOCYTE % (test code = MO%) 5.9 % 1.7-9.3 N EOSINOPHIL % (test code = EO%) 2.5 % 0.0-7.0 N BASOPHIL % (test code = BA%) 0.7 % 0-2.5 N NEUTROPHIL # (test code = NT#) 3.58 x10 3/uL 1.80-7.70 N LYMPHOCYTE # (test code = LY#) 1.51 x10 3/uL 1.00-4.80 N MONOCYTE # (test code = MO#) 0.33 x10 3/uL 0.00-0.80 N EOSINOPHIL # (test code = EO#) 0.14 x10 3/uL 0.00-0.45 N BASOPHIL # (test code = BA#) 0.04 x10 3/uL 0.0-0.20 N CHEMISTRY 8 [id number] 08:25:00* Test Item Value Reference Range Interpretation Comments SODIUM POC (test code = NAP) MMOL/L 135-146 N POTASSIUM POC (test code = KP) MMOL/L 3.5-4.9 N IONIZED CALCIUM POC (test code = CAIP) mmol/L 1.12-1.32 N GLUCOSE POC (test code = GLUP) mg/dL 70-105 H BUN POC (test code = BUNP) MG/DL 8-26 N CREATININE POC (test code = CREATP) mg/dL 0.6-1.3 N GLOMERULAR FILTRATION RATE POC (test code = GFRP) 79 58-1 35 N CHEMISTRY 8 [id number] 08:25:00* Test Item Value Reference Range Interpretation Comments SODIUM POC (test code = NAP) 140 MMOL/L 135-146 N POTASSIUM POC (test code = KP) 3.8 MMOL/L 3.5-4.9 N CHLORIDE POC (test code = CLP) 108 MMOL/L 98-109 N CO2 POC (test code = CO2P) 23 mmol/L 24-29 L IONIZED CALCIUM POC (test code = CAIP) 1.16 mmol/L 1.12-1.32 N GLUCOSE POC (test code = GLUP) 106 mg/dL 70-105 H BUN POC (test code = BUNP) 13 MG/DL 8-26 N CREATININE POC (test code = CREATP) 0.8 mg/dL 0.6-1.3 N GLOMERULAR FILTRATION RATE POC (test code = GFRP) 79 58-1 35 N URINALYSIS [id number] 09:15:00* Test Item Value Reference Range Interpretation Comments UA COLOR (test code = COLU) Light-Yellow YELLOW UA APPEARANCE (test code = APPU) Cloudy CLEAR A UA GLUCOSE DIPSTICK (test code = DGLUU) NEGATIVE mg/dL NEGATIVE UA BILIRUBIN DIPSTICK (test code = BILU) NEGATIVE mg/dL NEGATIVE UA KETONE DIPSTICK (test code = KETU) NEGATIVE mg/dL NEGATIVE UA SPECIFIC GRAVITY (test code = SGU) 1.014 1.001-1.035 UA BLOOD DIPSTICK (test code = MAT) Negative mg/dL NEGATIVE UA PH DIPSTICK (test code = CHARISMA) 6.5 5.0-8.0 UA PROTEIN DIPSTICK (test code = PROU) NEGATIVE mg/dL NEGATIVE UA UROBILINIOGEN DIPSTICK (test code = URO) Normal mg/dL NEGATIVE UA NITRITE DIPSTICK (test code = MANDI) POSITIVE NEGATIVE A UA LEUKOCYTE ESTERASE W REFLEX (test code = LEUUR) 250 Rah/u L (2+) Rah/uL NEGATIVE A UA WBC (test code = WBCU) 21-50 per HPF 0-5 A UA RBC (test code = RBCU) 0-2 #/HPF 0-5 UA EPITHELIAL CELLS (test code = EPIU) FEW per HPF FEW UA BACTERIA (test code = BACU) MANY #/HPF NONE A UA MUCUS (test code = MUCU) FEW #/LPF FEW Urine Source? Clean CatchSURGICAL [id number] 11:30:00 RUN DATE: 02/10/19 Gloria CALLEJAS *LIVE* PAGE 1 RUN TIME: 1130 Specimen Inqui ry RUN USER: INTERFACE PATIENT: ANGELA ESPINOSA ACCT #: [id number] LOC: [facility] POD B U #: [id number] AGE/SX: 43/F ROOM: [facility] RE02/05/19REG DR: Thai Escobedo MD : 77 BED: 1 DIS: 02/09/19 STATUS: DIS IN TLOC: SPEC #: [id number] RECD: 02/08/19 STATUS: SHAGUFTA CONNOLLY #: [id number] MICHELLE: 02/08/[address] [facility] [address]: Thai Escobedo MD ENTERED: 02/08/19 SP TYPE: SURG OTHR DR: Ashwin Palomares MD,Kirby Stanton,Feliz Espinoza,Jennifer DO No Primary Care Physician Faith Villaseñor MD,NaborORDERED: PATHGM4/5, PATH SPEC, H E STAIN/5 HISTOLOGY: TISSUE ID BLK PCS MARIO LEV / PROCEDURE DISPOSITION ____ ___ ___ ___ ___ ILIUM A 1 3 1 COLON BIOPSY B 1 3 1 TRANSV COL JOHN C 1 3 1 RECTAL BX D 1 3 1 RECTAL BX E 1 3 1 TISSUES: A. ILIUM - Terminal Ileum Bx B. COLON BIOPSY - Random Colon Bx C. TRANSVERSE COLON POLYP - Transverse Colon Polyp D. RECTAL BX - Rectum Polyp x2 E. RECTAL BX - Rectal Ulcers Bx CLINICAL HISTORY ABD Pain and Abnormal CT Scan COMMENT Sections of specimen (B) demonstrate colonic mucosa. No significant histopathologic abnormalities are identified. No chronic, active, lymphocytic or collagenous colitis is identified. No infectious organisms, viral inclusions or granulomas are identified. Sections of specimen (E) demonstrate superficial pieces of ulcer consisting of acute inflammation and fibrinous-inflammatory debris. Other pieces demonstrate colonic mucosa with mild hyperplastic changes. Focal active inflammation, focal atrophic crypts a nd focal ulceration with lamina propria fibrosis is noted. The findings are n onspecific finding. The presence of active inflammation raises the possibility of an infectious process. The area with lamina propria fibrosis raises the po ssibility of ischemic injury, but the findings are not entirely diagnostic bas ed only on this biopsy. Clinical correlation is recommended. CONTINUED ON NEXT PAGE RUN DATE: 02/10/19 Gloria CALLEJAS *LIVE* PAGE 2 RUN TIME: 11 30 Specimen Inquiry RUN USER: INTE RFACE SPEC #: [id number] PATIENT: ANGELA ESPINOSA #[id number] (Co ntinued) FINAL DIAGNOSIS A-TERMINAL ILEUM, BIOPSY: - S mall intestinal mucosa, no significant histopathologic abnormalities are ident ified. B-RANDOM COLON BIOPSY: - Colonic mucosa, no significant histopath ologic abnormalities are identified. - See comment. C-TRANSVERSE COLON P OLYP, BIOPSY: - Colonic mucosa with focal hyperplastic changes. - Small donte gn lymphoid aggregate. D-RECTUM POLYP X2, BIOPSY: - Colonic mucosa with findings suggestive of inflamed hyperplastic polyp. - Separate pieces of colon ic mucosa with mild hyperplastic changes. E-RECTAL ULCERS, BIOPSY: - Col onic mucosa with focal active inflammation and a focal area of ulceration and lamina propria fibrosis. - Superficial pieces of acute inflammation and fibri nous-inflammatory debris, consistent with superficial portion of ulcers. - S eparate pieces of colonic mucosa with focal hyperplastic changes. - See luther lima GROSS DESCRIPTION A-TERMINAL ILEUM: Multiple pieces of tissue whic h measure 2-3 mm each. Entirely submitted in a single cassette. B-RANDOM COLON: Multiple pieces of tissue which measure 2-7 mm. Entirely submitted in a single cassette. C-TRANSVERSE COLON POLYP: Two pieces of tissue which measure 2 and 5 mm. Entirely submitted in a single cassette. D-RECTUM P OLYP X2: Two pieces of tissue which measure 2-3 mm each. Entirely submitted i n a single cassette. E-RECTAL ULCER BIOPSY: Multiple pieces which measure less than 1 mm to 2 mm. Entirely submitted in a single cassette. RAB/eb MICROSCOPIC DESCRIPTION Microscopic performed. CONTINUED ON NEXT PAGE RUN DATE: 02/10/19 Gloria CALLEJAS *LIVE* PAGE 3 RUN TIME: 1130 Specimen Inquiry RUN USER: INTERFACE SPEC #: [id number] PATIENT: ANGELA ESPINOSA #[id number] (Continued)--- --------- Signed SIGNATURE ON FILE Cayden,Simon Christine MD 02/10/19 1130 END OF REPORT [id number] 07:44:00* Test Item Value Reference Range Interpretation Comments GLUBED (test code = GLUBED) 109 mg/dL 74-106 H Performed by certified dry starch operator at [facility] [id number] 12:21:00* Test Item Value Reference Range Interpretation Comments GLUBED (test code = GLUBED) 92 MG/DL 70-105 N [id number] 08:10:00* Test Item Value Reference Range Interpretation Comments GLUBED (test code = GLUBED) 73 MG/DL 70-105 N RENAL FUNCTION [id number] 06:02:00* Test Item Value Reference Range Interpretation Comments SODIUM (test code = NA) 138 MMOL/L 136-143 N POTASSIUM (test code = K) 4.2 MMOL/L 3.5-5.1 CHLORIDE (test code = CL) 104 MMOL/L 98-107 N CARBON DIOXIDE (test code = CO2) 19 mmol/L 24-31 L GLUCOSE (test code = GLU) 93 mg/dL 70-104 N BLOOD UREA NITROGEN (test code = BUN) 5.7 MG/DL 7.0-21.0 L GLOMERULAR FILTRATION RATE (test code = GFR) >=60 max estimate >60 The estimated glomerular filtration rate is computed usingpatient race, age (>18), sex, and serum creatinine. If anyof the needed data elements are missing the Laboratory cannot compute an estimation of the glomerular filtration rate. CREATININE (test code = CREAT) 0.6 mg/dL 0.8-1.5 L ALBUMIN (test code = ALB) 3.3 G/DL 3.5-5.0 L CALCIUM (test code = CA) 8.3 mg/dL 8.8-10.2 L PHOSPHOROUS (test code = PHOS) 2.2 mg/dL 2.7-4.5 L [id number] 05:57:00* Test Item Value Reference Range Interpretation Comments MAGNESIUM (test code = MAG) 1.8 mg/dL 1.4-2.6 N [id number] 05:44:00* Test Item Value Reference Range Interpretation Comments GLUBED (test code = GLUBED) 88 MG/DL 70-105 N [id number] 00:19:00* Test Item Value Reference Range Interpretation Comments GLUBED (test code = GLUBED) 98 MG/DL 70-105 N [id number] 12:33:00* Test Item Value Reference Range Interpretation Comments GLUBED (test code = GLUBED) 76 MG/DL 70-105 N [id number] 08:46:00* Test Item Value Reference Range Interpretation Comments GLUBED (test code = GLUBED) 72 MG/DL 70-105 N BASIC METABOLIC [id number] 06:55:00* Test Item Value Reference Range Interpretation Comments SODIUM (test code = NA) 139 MMOL/L 136-143 N POTASSIUM (test code = K) 2.9 MMOL/L 3.5-5.1 L CHLORIDE (test code = CL) 104 MMOL/L 98-107 N CARBON DIOXIDE (test code = CO2) 18 mmol/L 24-31 L GLUCOSE (test code = GLU) 105 mg/dL 70-104 H BLOOD UREA NITROGEN (test code = BUN) 5.4 MG/DL 7.0-21.0 L GLOMERULAR FILTRATION RATE (test code = GFR) >=60 max estimate >60 The estimated glomerular filtration rate is computed usingpatient race, age (>18), sex, and serum creatinine. If anyof the needed data elements are missing the Laboratory cannot compute an estimation of the glomerular filtration rate. CREATININE (test code = CREAT) 0.6 mg/dL 0.8-1.5 L CALCIUM (test code = CA) 8.7 mg/dL 8.8-10.2 L CBC W/AUTO [id number] 06:38:00* Test Item Value Reference Range Interpretation Comments WHITE BLOOD CELL (test code = WBC) 6.3 x10 3/uL 4.8-10.8 N RED BLOOD CELL (test code = RBC) 4.32 x10 6/uL 4.20-5.40 N HEMOGLOBIN (test code = HGB) 12.6 g/dL 14.5-20 L HEMATOCRIT (test code = HCT) 37.7 % 37.0-47.0 N MEAN CELL VOLUME (test code = MCV) 87.3 fL 81.0-99.0 N MEAN CELL HGB (test code = MCH) 29.2 pg 27-31 N MEAN CELL HGB CONCENTRATION (test code = MCHC) 33.4 G/DL 33-36.5 N RED CELL DISTRIBUTION WIDTH (test code = RDW) 13.9 % 12.9-16. 9 N PLATELET COUNT (test code = PLT) 302 150-440 N MEAN PLATELET VOLUME (test code = MPV) 8.9 fL 8.9-12.4 N NEUTROPHIL % (test code = NT%) 62.3 % 42.2-75.2 N LYMPHOCYTE % (test code = LY%) 28.8 % 20.5-51.1 N MONOCYTE % (test code = MO%) 6.2 % 1.7-9.3 N EOSINOPHIL % (test code = EO%) 2.2 % 0.0-7.0 N BASOPHIL % (test code = BA%) 0.3 % 0-2.5 N NEUTROPHIL # (test code = NT#) 3.93 x10 3/uL 1.80-7.70 N LYMPHOCYTE # (test code = LY#) 1.82 x10 3/uL 1.00-4.80 N MONOCYTE # (test code = MO#) 0.39 x10 3/uL 0.00-0.80 N EOSINOPHIL # (test code = EO#) 0.14 x10 3/uL 0.00-0.45 N BASOPHIL # (test code = BA#) 0.02 x10 3/uL 0.0-0.20 N [id number] 10:15:00* Test Item Value Reference Range Interpretation Comments LIPASE (test code = LIP) 12 U/L 0-190 N [id number] 07:39:00* Test Item Value Reference Range Interpretation Comments GLUBED (test code = GLUBED) 75 MG/DL 70-105 N BASIC METABOLIC [id number] 06:45:00* Test Item Value Reference Range Interpretation Comments SODIUM (test code = NA) 138 MMOL/L 136-143 N POTASSIUM (test code = K) 3.7 MMOL/L 3.5-5.1 N CHLORIDE (test code = CL) 106 MMOL/L 98-107 N CARBON DIOXIDE (test code = CO2) 22 mmol/L 24-31 L GLUCOSE (test code = GLU) 97 mg/dL 70-104 N BLOOD UREA NITROGEN (test code = BUN) 4.7 MG/DL 7.0-21.0 L GLOMERULAR FILTRATION RATE (test code = GFR) >=60 max estimate >60 The estimated glomerular filtration rate is computed usingpatient race, age (>18), sex, and serum creatinine. If anyof the needed data elements are missing the Laboratory cannot compute an estimation of the glomerular filtration rate. CREATININE (test code = CREAT) 0.6 mg/dL 0.8-1.5 L CALCIUM (test code = CA) 8.3 mg/dL 8.8-10.2 L 2SL IGHT INCREASE FROM PREVIOUS HX CBC W/AUTO [id number] 05:32:00* Test Item Value Reference Range Interpretation Comments WHITE BLOOD CELL (test code = WBC) 5.8 x10 3/uL 4.8-10.8 N RED BLOOD CELL (test code = RBC) 4.17 x10 6/uL 4.20-5.40 L HEMOGLOBIN (test code = HGB) 12.3 g/dL 14.5-20 L HEMATOCRIT (test code = HCT) 37.0 % 37.0-47.0 N MEAN CELL VOLUME (test code = MCV) 88.7 fL 81.0-99.0 N MEAN CELL HGB (test code = MCH) 29.5 pg 27-31 N MEAN CELL HGB CONCENTRATION (test code = MCHC) 33.2 G/DL 33-36.5 N RED CELL DISTRIBUTION WIDTH (test code = RDW) 14.0 % 12.9-16. 9 N PLATELET COUNT (test code = PLT) 283 150-440 N MEAN PLATELET VOLUME (test code = MPV) 9.1 fL 8.9-12.4 N NEUTROPHIL % (test code = NT%) 57.6 % 42.2-75.2 N LYMPHOCYTE % (test code = LY%) 32.5 % 20.5-51.1 N MONOCYTE % (test code = MO%) 6.6 % 1.7-9.3 N EOSINOPHIL % (test code = EO%) 2.6 % 0.0-7.0 N BASOPHIL % (test code = BA%) 0.5 % 0-2.5 N NEUTROPHIL # (test code = NT#) 3.32 x10 3/uL 1.80-7.70 N LYMPHOCYTE # (test code = LY#) 1.87 x10 3/uL 1.00-4.80 N MONOCYTE # (test code = MO#) 0.38 x10 3/uL 0.00-0.80 N EOSINOPHIL # (test code = EO#) 0.15 x10 3/uL 0.00-0.45 N BASOPHIL # (test code = BA#) 0.03 x10 3/uL 0.0-0.20 N BASIC METABOLIC [id number] 12:04:00* Test Item Value Reference Range Interpretation Comments SODIUM (test code = NA) 139 MMOL/L 136-143 N POTASSIUM (test code = K) 3.2 MMOL/L 3.5-5.1 L CHLORIDE (test code = CL) 105 MMOL/L 98-107 N CARBON DIOXIDE (test code = CO2) 23 mmol/L 24-31 L GLUCOSE (test code = GLU) 83 mg/dL 70-104 N BLOOD UREA NITROGEN (test code = BUN) 5.7 MG/DL 7.0-21.0 L GLOMERULAR FILTRATION RATE (test code = GFR) >=60 max estimate >60 The estimated glomerular filtration rate is computed usingpatient race, age (>18), sex, and serum creatinine. If anyof the needed data elements are missing the Laboratory cannot compute an estimation of the glomerular filtration rate. CREATININE (test code = CREAT) 0.7 mg/dL 0.8-1.5 L CALCIUM (test code = CA) 6.9 mg/dL 8.8-10.2 L [id number] 11:36:00* Test Item Value Reference Range Interpretation Comments GLUBED (test code = GLUBED) 83 MG/DL 70-105 N - CT ABD PELVIS [id number] 09:29:00Patient Name: ANGELA ESPINOSA Unit No: [id number] EXAMS: CPT CODE: [id number] CT ABD PELVIS W/CONT 91188 CT abdomen and pelvis with IV contrast. Indication: Pain, pancreatitis. Location: R16 Comparison: 02/04/2019 Technique: CT images of the abdomen and pelvis were obtained from the diaphragm to the pubic symphysis after the administration of intravenous contrast. Coronal and sagittal reformats are provided. One or more of the following dose reduction techniques were used: Automated exposure control, adjustment of the mA and/or kV according to patient size, and/or utilization of iterative reconstruction technique. Findings: Lungs bases: Small consolidations are demonstrated at the bilateral lower lobes and lingula. Liver: There is decreased attenuation of the liver. Gallbladder: Surgically absent. Pancreas: There is no significant peripancreatic stranding or peripancreatic fluid collection. Spleen: Unremarkable. Adrenal glands: There is no adrenal mass. Kidneys: There are punctate bilateral renal calculi. There is no hydronephrosis. Again seen is left cortical renal scarring. A stable 11 mm left renal cyst is again noted. Bowel: There is no bowel obstruction. The appendix is not definitively visualized, though there is no pericecal inflammation to suggest acute appendicitis. There is persistent focal wall thickening at the sigmoid colon with interval development of adjacent stranding. Additionally, there is increased stranding of the mesorectal fat and presacral fat. Th ere is a small volume of fluid scattered within the colon. Peritoneu m: There is no ascites or pneumoperitoneum. Pelvis: The urinary bladder a ppears smooth-walled. The uterus is absent. There is no adnexal mass. Skeletal: There is no acute fracture. Degenerative sclerosis is appreci ated across the sacroiliac joints. Impression: No CT ramiro dence for acute pancreatitis. Persistent focal thickening at the sigmoid colon with increased stranding, a sigmoidoscopy is recommended to exclu de an underlying lesion. Increased mesorectal and presacral infl ammation may be sequela of stercoral colitis, correlate clinically. Bibasilar consolidations may reflect atelectasis, aspiration or pneu monia. Name: ANGELA ESPINOSA [facility] Phys: Nabor Richards [address] OB: 1975 Age: 43 Sex: [place] [address] Loc: P.0209 1 Exam Date: Status: ADM IN PH: FAX: PAGE 1 Signed Report (CONTINUED) Patient Name: ANGELA ESPINOSA Unit No: [id number] EXAMS: CPT CODE: [id number] CT ABD PELVIS W/CONT 09302 <Continued> Bilateral nephrolithiasis without evidence of obstructive uropathy. Hepatic steatosis. at 0929 Reported and signed by: NAREN CANTU M.D. CC: Faith Quan MD; Thai Escobedo MD; Nabor Moss Technologist: LENY Templeton(R),(CT) CTDI: 35.96 DLP: 1887 Trscr Dt/Tm: 02/06/2019 (09) by:[email or web address] Printed Date/Time: 02/06/2019 (0932) Name: ANGELA ESPINOSA [facility] Phys: Nabor Richards [address] : 1975 Age: 43 Sex: F [place] [address] Loc: P.0209 1 Exam Date: 02/06/2019 Status: ADM IN PH: FAX: PAGE 2 Signed Report [id number] 08:53:00* Test Item Value Reference Range Interpretation Comments LIPASE (test code = LIP) 13 U/L 0-190 N CBC W/AUTO [id number] 06:38:00* Test Item Value Reference Range Interpretation Comments WHITE BLOOD CELL (test code = WBC) 6.1 x10 3/uL 4.8-10.8 N RED BLOOD CELL (test code = RBC) 3.95 x10 6/uL 4.20-5.40 L HEMOGLOBIN (test code = HGB) 11.5 g/dL 14.5-20 L HEMATOCRIT (test code = HCT) 35.2 % 37.0-47.0 L MEAN CELL VOLUME (test code = MCV) 89.1 fL 81.0-99.0 N MEAN CELL HGB (test code = MCH) 29.1 pg 27-31 N MEAN CELL HGB CONCENTRATION (test code = MCHC) 32.7 G/DL 33-36.5 L RED CELL DISTRIBUTION WIDTH (test code = RDW) 14.0 % 12.9-16. 9 N PLATELET COUNT (test code = PLT) 264 150-440 N MEAN PLATELET VOLUME (test code = MPV) 9.1 fL 8.9-12.4 N NEUTROPHIL % (test code = NT%) 62.6 % 42.2-75.2 N LYMPHOCYTE % (test code = LY%) 29.4 % 20.5-51.1 N MONOCYTE % (test code = MO%) 5.3 % 1.7-9.3 N EOSINOPHIL % (test code = EO%) 2.1 % 0.0-7.0 N BASOPHIL % (test code = BA%) 0.3 % 0-2.5 N NEUTROPHIL # (test code = NT#) 3.78 x10 3/uL 1.80-7.70 N LYMPHOCYTE # (test code = LY#) 1.78 x10 3/uL 1.00-4.80 N MONOCYTE # (test code = MO#) 0.32 x10 3/uL 0.00-0.80 N EOSINOPHIL # (test code = EO#) 0.13 x10 3/uL 0.00-0.45 N BASOPHIL # (test code = BA#) 0.02 x10 3/uL 0.0-0.20 N [id number] 06:25:00* Test Item Value Reference Range Interpretation Comments GLUBED (test code = GLUBED) 88 MG/DL 70-105 N [id number] 23:28:00* Test Item Value Reference Range Interpretation Comments GLUBED (test code = GLUBED) 83 MG/DL 70-105 N [id number] 12:31:00* Test Item Value Reference Range Interpretation Comments AMYLASE (test code = JANIE) 82 U/L 0-100 N [id number] 12:31:00* Test Item Value Reference Range Interpretation Comments LIPASE (test code = LIP) 16 U/L 0-190 N [id number] 11:57:00* Test Item Value Reference Range Interpretation Comments TROPONIN-I (test code = TROPI) < 0.30 ng/mL 0.00-0.30 N INTERPRETATIVE DATA:Negative or inconclusive reuslts do not exclude myocardialinfarction. Serial tests at appropriate intervals may benecessary. RECOLLECT DUE TO GROSS HEMOLYSISLACTIC [id number] 09:37:00* Test Item Value Reference Range Interpretation Comments LACTIC ACID (test code = LACT) 10.6 mg/dL 4.5-18.0 N [id number] 06:11:00* Test Item Value Reference Range Interpretation Comments GLUBED (test code = GLUBED) 123 MG/DL 70-105 H ARTERIAL BLOOD [id number] 05:40:00* Test Item Value Reference Range Interpretation Comments ARTERIAL BLOOD GAS PH (test code = PHA) 7.35 7.35-7.45 N ARTERIAL BLOOD GAS PCO2 (test code = PCO2A) 34.0 mmHg 35.0-45.0 L ARTERIAL BLOOD GAS PO2 (test code = PO2A) 128.1 mmHg 80.0-95.0 H BICARBONATE TOTAL HCO3 (test code = HCO3) 18.5 mmol/L 22.0-24.0 L BASE EXCESS (test code = GI) -6.0 mmol/L (+/-)2.0 L ABG O2 SATURATION (test code = SATA) 98.0 % 95.0-100.0 N ABG TYPE (test code = TYPEA) VENTILATOR ARTERIAL FIO2 (test code = FIO2A) 40 % ABG DELIVERY (test code = HINA) Vent ABG VENT MODE (test code = MODEA) AC Volume ABG PATIENT RESP RATE (test code = RRPATA) 18 /MIN 12-20 N ABG VENT RESP RATE (test code = RRA) 18 /MIN ABG TIDAL VOLUME (test code = TIDAL VOLUME) 500 ML ABG PEEP (test code = PEEP) 5 cmH2O ABG SITE (test code = SITEA) RIGHT RADIAL ABG POSITION (test code = PT POSITION) SEMI ALLENS TEST (test code = ALLENS) Pass TOTAL HGB (test code = THB) 14.5 g/dL 12.0-16.0 N [id number] 04:37:00* Test Item Value Reference Range Interpretation Comments GLUBED (test code = GLUBED) 122 MG/DL 70-105 H [id number] 04:29:00* Test Item Value Reference Range Interpretation Comments TROPONIN-I (test code = TROPI) < 0.30 ng/mL 0.00-0.30 N INTERPRETATIVE DATA:Negative or inconclusive reuslts do not exclude myocardialinfarction. Serial tests at appropriate intervals may benecessary. BASIC METABOLIC [id number] 04:22:00* Test Item Value Reference Range Interpretation Comments SODIUM (test code = NA) 138 MMOL/L 136-143 N POTASSIUM (test code = K) 3.8 MMOL/L 3.5-5.1 N CHLORIDE (test code = CL) 104 MMOL/L 98-107 N CARBON DIOXIDE (test code = CO2) 23 mmol/L 24-31 L GLUCOSE (test code = GLU) 121 mg/dL 70-104 H BLOOD UREA NITROGEN (test code = BUN) 10.4 MG/DL 7.0-21.0 N GLOMERULAR FILTRATION RATE (test code = GFR) >=60 max estimate >60 The estimated glomerular filtration rate is computed usingpatient race, age (>18), sex, and serum creatinine. If anyof the needed data elements are missing the Laboratory cannot compute an estimation of the glomerular filtration rate. CREATININE (test code = CREAT) 0.9 mg/dL 0.8-1.5 N CALCIUM (test code = CA) 6.7 mg/dL 8.8-10.2 L LACTIC [id number] 04:20:00* Test Item Value Reference Range Interpretation Comments LACTIC ACID (test code = LACT) 25.9 mg/dL 4.5-18.0 HH Critical Value reported toFirst Name:HILARY Last Name:JAMEEJUSTIN READ BACK AND VERIFIEDby MARIA DE JESUS, on 02/05/19, @ 0420. [id number] 04:20:00* Test Item Value Reference Range Interpretation Comments MAGNESIUM (test code = MAG) 1.9 mg/dL 1.4-2.6 N CBC W/AUTO [id number] 04:09:00* Test Item Value Reference Range Interpretation Comments WHITE BLOOD CELL (test code = WBC) 15.4 x10 3/uL 4.8-10.8 H RED BLOOD CELL (test code = RBC) 4.54 x10 6/uL 4.20-5.40 N HEMOGLOBIN (test code = HGB) 13.2 g/dL 14.5-20 L HEMATOCRIT (test code = HCT) 40.8 % 37.0-47.0 N MEAN CELL VOLUME (test code = MCV) 89.9 fL 81.0-99.0 N MEAN CELL HGB (test code = MCH) 29.1 pg 27-31 N MEAN CELL HGB CONCENTRATION (test code = MCHC) 32.4 G/DL 33-36.5 L RED CELL DISTRIBUTION WIDTH (test code = RDW) 14.0 % 12.9-16. 9 N PLATELET COUNT (test code = PLT) 295 150-440 N MEAN PLATELET VOLUME (test code = MPV) 9.1 fL 8.9-12.4 N NEUTROPHIL % (test code = NT%) 83.0 % 42.2-75.2 H LYMPHOCYTE % (test code = LY%) 7.7 % 20.5-51.1 L MONOCYTE % (test code = MO%) 8.2 % 1.7-9.3 N EOSINOPHIL % (test code = EO%) 0.3 % 0.0-7.0 N BASOPHIL % (test code = BA%) 0.2 % 0-2.5 N NEUTROPHIL # (test code = NT#) 12.79 x10 3/uL 1.80-7.70 H LYMPHOCYTE # (test code = LY#) 1.19 x10 3/uL 1.00-4.80 N MONOCYTE # (test code = MO#) 1.27 x10 3/uL 0.00-0.80 H EOSINOPHIL # (test code = EO#) 0.04 x10 3/uL 0.00-0.45 N BASOPHIL # (test code = BA#) 0.03 x10 3/uL 0.0-0.20 N - PULM VENT PERF [id number] 04:06:00Patient Name: ANGELA ESPINOSA Unit No: [id number] EXAMS: CPT CODE: [id number] PULM VENT PERF IMAG [id number] AFTER HOURS SERVICE ON: 02/05/2019 4:02 AM Ventilation/Perfusion Scan Location Code M12 History: ACUTE SOB, CP, RESPIRATORY FAILURE Technique: Patient inhaled 10.0 mCi of the Xe-133. This was followed by intravenous injection of 10 mCi of Tc-MAA. Findings: Ventilation: Ventilation scans are nondiagnostic. Patient is vented. Perfusion: There is a horizontal linear perfusion defect which may indicate scarring or effusion. No segmental perfusion defects seen. Impression: Low probability for pulmonary embolism. Technically limited examination. at 0406 Reported and signed by: JEMIMA DE LA GARZA M.D. CC: Homer Bird MD; Fatih Quan MD; Thai Escobedo MD Technologist: ALEXIS VALDOVINOS [facility] Trscr Dt/Tm: 02/05/2019 (0406) by:[email or web address] Printed Date/Time : 02/05/2019 (408) Name: ANGELA ESPINOSA [facility] Phys: Homer Lopez MD [address] : 1975 Age: 43 Sex: [place] [address] Loc: P.0209 1 Exam Date: 02/05/2019 Status: ADM IN PH: FAX: PAGE 1 Signed Report - CT HEAD/BRAIN W/O [id number] 00:56:00Patient Name: ANGELA ESPINOSA Unit No: [id number] EXAMS: CPT CODE: [id number] CT HEAD/BRAIN W/O CONT [id number] AFTER HOURS SERVICE ON: 02/05/2019 12:[address] Scan of the Brain Without Contrast Location Code M12 History: acute seizure, AMS Technique: Scans were performed on a helical scanner pre IV contrast only. The study is limited secondary to lack of intravenous contrast, particularly for evaluation of masses. One or more of the following dose reduction techniques were used: Automated exposure control, adjustment of the mA and/or kV according to patient size, and/or utilization of iterative reconstruction technique. Findings: There is no hydrocephalus. Basal cisterns are patent. There is no intracranial hyperdense hemorrhage. There is no midline shift or mass effect. No effacement of the neff-white matter junction to indicate acute infarction. There is no skull fracture. Impression: No acute intracranial CT findings. at 0056 Reported and signed by: JEMIMA DE LA GARZA M.D. CC: Homer Bird MD; Faith Quan MD Technologist: Melani Kaur CTDI: 62.55 DLP: 1063 Trscr Dt/Tm: 02/05/2019 (0056) by:[email or web address] Printed Date/Time: 02/05/2019 (010) Name: ANGELA ESPINOSA [facility] Phys: Homer Lopez MD [address] : 1975 Age: 43 Sex: [place] [address] Loc: P.0209 1 Exam Date: 02/05/2019 Status: ADM IN PH: FAX: PAGE 1 Signed Report [id number] 00:38:00* Test Item Value Reference Range Interpretation Comments D-DIMER (test code = DDIMER) 3292 ng/mLFEU 0-500 HH Critical Value reported toFirst Name:JOHN Last Name:MADELINENIA READ BACK AND VERIFIEDby MARIA DE JESUS, on 02/05/19, @ 0038.THE DDIMER METHOD IS USED IN THE EXCLUSION OF DEEP VEINTHROMBOSIS AND/OR PULMONARY EMBOLISM AND THE CLINICAL CUT-OFF VALUE FOR EXCLUSION (500 NG/ML FEU) OF THESE CONDITIONSIS VALIDATED BY THE ROD PULLER OF THE METHOD. A NEGATIVE DDIMER RESULT WHEN COMBINED WITH A CLINICALASSESSMENT OF LOW PRETEST PROBABILITY HAS BEEN SHOWN TO HAVEA HIGH NEGATIVE PREDICTIVE VALUE OF DVT OR PE. D-DIMER VALUES >500 ng/mL ARE NOT DIAGNOSTIC FOR DVT,PEOR DIC WITHOUT OTHER CONFIRMATORY TESTS AND APPROPRIATECLINICAL EVALUATIONS. [id number] 00:37:00* Test Item Value Reference Range Interpretation Comments ACETAMINOPHEN (test code = ACET) 5 mcg/mL 10-30 L INTERPRETATIVE DATA:Toxic manifestations have been observed at serumconcentrations >100 mcg/mL, however the toxic range isgenerally reported at>200 mcg/mL. The therapeutic range varies and has been reported inliterature to be in the range of 10-30 mcg/mL. [id number] 00:37:00* Test Item Value Reference Range Interpretation Comments SALICYLATE (test code = ANAHI) 3 mcg/mL 30-100 L INTERPRETATIVE DATA:Therapeutic range: 30.0 - 100.0 mcg/mL [id number] 00:37:00* Test Item Value Reference Range Interpretation Comments ALCOHOL (test code = ALC) <10 mg/dl 0-450 N DRUGS OF ABUSE SCREEN [id number] 00:00:00* Test Item Value Reference Range Interpretation Comments UR COCAINE (test code = COCAU) NEGATIVE NEGATIVE UR CANABINOIDS (test code = CANU) POSITIVE NEGATIVE UR AMPHETAMINE (test code = AMPHU) NEGATIVE NEGATIVE UR BARBITURATE (test code = BARBQLU) NEGATIVE NEGATIVE UR BENZODIAZEPINE (test code = BENZU) POSITIVE NEGATIVE UR OPIATES QUAL (test code = OPIAQLU) POSITIVE NEGATIVE UR PHENCYCLIDINE (PCP) (test code = PHENCU) NEGATIVE NEGATIVE The assay cut- off concentration: Benzodiazepines 100 ng/mL.Amphetamines 500 ng/mL.Barbiturates 200 ng/mL.Cannabinoids 50 ng/mL.Cocaine 150 ng/mL.Opiates 300 ng/mL.Phencyclidine 25 ng/mL. The method [facility] by the [facility]for [facility] Drugs of Abuse is performed as a medical screeningtest only. If confirmation testing is required, thephysician must order the confirmatory test within 5 days ofthe specimen's collection date. The specimen will be sentout to an independent reference laboratory. - XR CHEST 1 [id number] 23:55:00Patient Name: ANGELA ESPINOSA Unit No: [id number] Report Has Been Amended EXAMS: CPT CODE: [id number] XR CHEST 1 V 22302 Addendum - 02/04/2019 SIGNED 02/04/2019 ADDENDUM: [id number] RAD/CXR1 Addendum: Above results were called to Dr. Bird at11:52 PM. FOR INTERNAL CODING PURPOSES ONLY RESULT CODE: CVR at 1743 Reported and signed by: JEET GARCIA M.D. Transcribed: 02/04/2019 (2289) SilasMVT Report Chest one view Dictation location N 13 Clinical history altered mental status, intubation TECHNIQUE: Single frontal view the chest was obtained and is compared to prior study September 04, 2018 at 1634 hours FINDINGS: There is an ET tube to the nancy. It should be withdrawn 2 cm for better placement in the trachea. There is mild upper lobe atelectasis with the limited inspiration. Heart size normal. No pleural effusion or pneumothorax. IMPRESSION: 1. ET tube is at the nancy and should be withdrawn 2 cm. 2. Limited inspiratory effort. Mild upper lobe atelectasis. at 3091 Reported and signed by: JEET GARCIA M.D. CC: Homer Bird MD; Faith Quan MD Technologist: Milagro Carty Time: DAP (Gy m2): Air Kerma (mGy): Trscr Dt/Tm: 02/04/2019 (0514) by:SilasMVT Printed Date/Time: 02/04/2019 (3287) Name: ANGELA ESPINOSA [facility] Phys: Debbie Lopez MD [address] : 1975 Age: 43 Sex: F [place], [place] [id number] Loc: P.ERS Exam Date: 02/04/2019 Status: REG ER PH: FAX: PAGE 1 Signed Report ARTERIAL BLOOD [id number] 23:51:00* Test Item Value Reference Range Interpretation Comments ARTERIAL BLOOD GAS PH (test code = PHA) 7.27 7.35-7.45 L ARTERIAL BLOOD GAS PCO2 (test code = PCO2A) 44.0 mmHg 35.0-45.0 N ARTERIAL BLOOD GAS PO2 (test code = PO2A) 250.4 mmHg 80.0-95.0 H BICARBONATE TOTAL HCO3 (test code = HCO3) 19.8 mmol/L 22.0-24.0 L BASE EXCESS (test code = GI) -7.0 mmol/L (+/-)2.0 L ABG O2 SATURATION (test code = SATA) 99.0 % 95.0-100.0 N ABG TYPE (test code = TYPEA) VENTILATOR ARTERIAL FIO2 (test code = FIO2A) 100 % ABG DELIVERY (test code = HINA) Vent ABG VENT MODE (test code = MODEA) AC Volume ABG PATIENT RESP RATE (test code = RRPATA) 19 /MIN 12-20 N ABG VENT RESP RATE (test code = RRA) 16 /MIN ABG TIDAL VOLUME (test code = TIDAL VOLUME) 500 ML ABG PEEP (test code = PEEP) 5 cmH2O ABG SITE (test code = SITEA) R rad ABG POSITION (test code = PT POSITION) SUPINE ALLENS TEST (test code = ALLENS) Pass TOTAL HGB (test code = THB) 14.6 g/dL 12.0-16.0 N - XR CHEST 1 [id number] 23:51:00Patient Name: ANGELA ESPINOSA Unit No: [id number] EXAMS: CPT CODE: [id number] XR CHEST 1 V 88314 Chest one view Dictation location N 13 Clinical history altered mental status, intubation TECHNIQUE: Single frontal view the chest was obtained and is compared to prior study September 04, 2018 at 1634 hours FINDINGS: There is an ET tube to the nancy. It should be withdrawn 2 cm for better placement in the trachea. There is mild upper lobe atelectasis with the limited inspiration. Heart size normal. No pleural effusion or pneumothorax. IMPRESSION: 1. ET tube is at the nancy and should be withdrawn 2 cm. 2. Limited inspiratory effort. Mild upper lobe atelectasis. at 2351 Reported and signed by: JEET GARCIA M.D. CC: Homer Bird MD; Faith Quan MD Technologist: Milagro Carty Time: DAP (Gy m2): Air Kerma (mGy): Trscr Dt/Tm: 02/04/2019 (0000) by:SilasMVT Printed Date/Time: 02/04/2019 (5743) Name: ANGELA ESPINOSA [facility] Phys: Homer Lopez MD [address] : 1975 Age: 43 Sex: [place] [address] Loc: P.ERS Exam Date: 02/04/2019 Status: REG ER PH: FAX: PAGE 1 Signed Report TROPONIN I [id number] 22:54:00* Test Item Value Reference Range Interpretation Comments TROPONIN I RAPID (test code = TROPIRAP) 0.00 ng/mL 0.00-0.08 N - The use of serial sampling and testing protocol is a recommended practice- An elevated tropnin level alone is often not sufficient for diagnosis of myocardial infarction. [id number] 22:34:00* Test Item Value Reference Range Interpretation Comments GLUBED (test code = GLUBED) 96 MG/DL 70-105 N URINALYSIS [id number] 22:08:00* Test Item Value Reference Range Interpretation Comments UA COLOR (test code = COLU) YELLOW DISCRIPT YELLOW UA APPEARANCE (test code = APPU) SLIGHTLY CLOUDY DISCRIPT CLEAR A UA GLUCOSE DIPSTICK (test code = DGLUU) NEGATIVE mg/dL NEGATIVE UA BILIRUBIN DIPSTICK (test code = BILU) NEGATIVE NEGATIVE UA KETONE DIPSTICK (test code = KETU) NEGATIVE mg/dL NEGATIVE UA SPECIFIC GRAVITY (test code = SGU) 1.025 1.005-1.030 UA BLOOD DIPSTICK (test code = MAT) SMALL NEGATIVE A UA PH DIPSTICK (test code = CHARISMA) 6.0 5.0-9.0 UA PROTEIN DIPSTICK (test code = PROU) TRACE mg/dL NEGATIVE UA UROBILINOGEN DIPSTICK (test code = URO) 0.2 mg/dL 0.2-1.0 UA NITRITE DIPSTICK (test code = MANDI) NEGATIVE NEGATIVE UA LEUKOCYTE ESTERASE DIPSTICK (test code = LEUU) SMALL NEGA TIVE A UA [id number] 22:08:00* Test Item Value Reference Range Interpretation Comments UA WBC (test code = WBCU) 11-20 #WBC/HPF 0-2 A UA RBC (test code = RBCU) 3-5 #RBC/HPF 0-2 A UA BACTERIA (test code = BACU) 3+ /HPF NONE-TRACE A UA SQUAMOUS CELLS (test code = SQU) 1+ /LPF NONE-TRACE A UA YEAST (test code = YEASTU) 3+ /HPF NONE SEEN A URINALYSIS [id number] 21:49:00* Test Item Value Reference Range Interpretation Comments UA COLOR (test code = COLU) YELLOW DISCRIPT YELLOW UA APPEARANCE (test code = APPU) SLIGHTLY CLOUDY DISCRIPT CLEAR A UA GLUCOSE DIPSTICK (test code = DGLUU) NEGATIVE mg/dL NEGATIVE UA BILIRUBIN DIPSTICK (test code = BILU) NEGATIVE NEGATIVE UA KETONE DIPSTICK (test code = KETU) NEGATIVE mg/dL NEGATIVE UA SPECIFIC GRAVITY (test code = SGU) 1.025 1.005-1.030 UA BLOOD DIPSTICK (test code = MAT) SMALL NEGATIVE A UA PH DIPSTICK (test code = CHARISMA) 6.0 5.0-9.0 UA PROTEIN DIPSTICK (test code = PROU) TRACE mg/dL NEGATIVE UA UROBILINOGEN DIPSTICK (test code = URO) 0.2 mg/dL 0.2-1.0 UA NITRITE DIPSTICK (test code = MANDI) NEGATIVE NEGATIVE UA LEUKOCYTE ESTERASE DIPSTICK (test code = LEUU) SMALL NEGA TIVE A UA [id number] 21:49:00* Test Item Value Reference Range Interpretation Comments UA WBC (test code = WBCU) #WBC/HPF 0-2 UA RBC (test code = RBCU) #RBC/HPF 0-2 UA BACTERIA (test code = BACU) /HPF NONE-TRACE UA SQUAMOUS CELLS (test code = SQU) /LPF NONE-TRACE URINALYSIS [id number] 21:49:00* Test Item Value Reference Range Interpretation Comments UA COLOR (test code = COLU) YELLOW DISCRIPT YELLOW UA APPEARANCE (test code = APPU) SLIGHTLY CLOUDY DISCRIPT CLEAR A UA GLUCOSE DIPSTICK (test code = DGLUU) NEGATIVE mg/dL NEGATIVE UA BILIRUBIN DIPSTICK (test code = BILU) NEGATIVE NEGATIVE UA KETONE DIPSTICK (test code = KETU) NEGATIVE mg/dL NEGATIVE UA SPECIFIC GRAVITY (test code = SGU) 1.025 1.005-1.030 UA BLOOD DIPSTICK (test code = MAT) SMALL NEGATIVE A UA PH DIPSTICK (test code = CHARISMA) 6.0 5.0-9.0 UA PROTEIN DIPSTICK (test code = PROU) TRACE mg/dL NEGATIVE UA UROBILINOGEN DIPSTICK (test code = URO) 0.2 mg/dL 0.2-1.0 UA NITRITE DIPSTICK (test code = MANDI) NEGATIVE NEGATIVE UA LEUKOCYTE ESTERASE DIPSTICK (test code = LEUU) SMALL NEGA TIVE A UA [id number] 21:49:00* Test Item Value Reference Range Interpretation Comments UA WBC (test code = WBCU) #WBC/HPF 0-2 UA RBC (test code = RBCU) #RBC/HPF 0-2 UA BACTERIA (test code = BACU) /HPF NONE-TRACE UA SQUAMOUS CELLS (test code = SQU) /LPF NONE-TRACE - CT ABD PELVIS [id number] 21:45:00Patient Name: ANGELA ESPINOSA Unit No: [id number] EXAMS: CPT CODE: [id number] CT ABD PELVIS W/CONT 87213 CT SCAN OF THE ABDOMEN AND PELVIS WITH CONTRAST Dictation Location: N13 CLINICAL HISTORY: Abdominal pain periumbilical and constipation TECHNIQUE: Helical CT of the abdomen and pelvis was performed after the administration of 100 cc of Isovue 300 without complication. Coronal and sagittal reconstructions were obtained. This exam was performed according to our departmental dose optimization program, which includes automated exposure control, adjustment of the mA and/ or KV according to patient size and/or use of iterative reconstruction technique. DLP 1520 mGy*cm FINDINGS: The visualized lung bases are clear. No evidence of pleural effusion. Liver is normal in size without intrahepatic biliary dilatation or focal mass. There is mild fatty infiltration of the liver. The gallbladder is surgically absent. The pancreas, spleen, and adrenal glands are normal. There is no evidence of hydronephrosis, solid mass, pyelonephritis or obstructing kidney stone. There is a 1 cm cyst at the mid pole cortex left kidney. There is a small 0.2 cm nonobstructive stone at the midpole left renal calyx seen on coronal image 83 and axial image 76. Visualized ureters are unremarkable. There is no evidence of pancreatic mass, atrophy, calcification. There is no abdominal free fluid or adenopathy. There is no bowel wall thickening or dilatation. There is no evidence of appendicitis, diverticulitis, colitis or bowel obstruction. Normal appendix is seen on sagittal image 98 and axial image 104. Periumbilical soft tissues are unremarkable. No evidence of ventral hernia. Moderate amounts of stool are present in the colon suggesting that clinical diagnosis of constipation. There is obesity. In the pelvis, there is no free fluid or adenopathy present. The bladder is unremarkable without distention, wall thickening, calculi. There has been prior hysterectomy. No adnexal mass. Mild degenerative changes are present in the spine. Vascular structures are normal. No AAA. IMPRESSION: 1. Normal appendix. 2. Moderate to large amount of stool consistent with the clinical d iagnosis of a mild constipation. 3. Tiny nonobstruc tive stone mid pole left kidney. Name: ANGELA ESPINOSA [facility] Phys: Homer Lopez MD [address] : 1975 Age: 43 Sex: F [place], [place] [address] Loc: P.ERS Exam Date: 02/04/2019 Status: REG ER PH: FAX: PAGE 1 Signed Report (CONTINU ED) Patient Name: ANGELA ESPINOSA Unit No: [id number] XAMS: CPT CODE: [id number] CT ABD PELVIS W/CONT 39968 <Continued> at 2144 Reported and signed by: JEET GARCIA M.D. CC: Homer Bird MD; Faith Quan MD Technologist: Kim Horn (CT),(MR) CTDI: 27.92 DLP: 1520 Trs Dt/Tm: 02/04/2019 (2144) by:SilasMVT Printed Date/Time: 02/04/2019 (2147) Name: ANGELA ESPINOSA [facility] Phys: Homer Lopez MD [address] : 1975 Age: 43 Sex: [place] [address] Loc: P.ERS Exam Date: 02/04/2019 Status : REG ER PH: FAX: PAGE 2 Sign ed Report COMPREHENSIVE METABOLIC [id number] 21:16:00* Test Item Value Reference Range Interpretation Comments SODIUM (test code = NA) 142 MMOL/L 136-143 N POTASSIUM (test code = K) 3.5 MMOL/L 3.5-5.1 N CHLORIDE (test code = CL) 105 MMOL/L 98-107 N CARBON DIOXIDE (test code = CO2) 25 mmol/L 24-31 N GLUCOSE (test code = GLU) 111 mg/dL 70-104 H BLOOD UREA NITROGEN (test code = BUN) 11.1 MG/DL 7.0-21.0 N GLOMERULAR FILTRATION RATE (test code = GFR) >=60 max estimate >60 The estimated glomerular filtration rate is computed usingpatient race, age (>18), sex, and serum creatinine. If anyof the needed data elements are missing the Laboratory cannot compute an estimation of the glomerular filtration rate. CREATININE (test code = CREAT) 0.9 mg/dL 0.8-1.5 N TOTAL PROTEIN (test code = PROT) 6.9 g/dL 6.3-8.3 N ALBUMIN (test code = ALB) 4.3 G/DL 3.5-5.0 N CALCIUM (test code = CA) 8.9 mg/dL 8.8-10.2 N BILIRUBIN TOTAL (test code = BILT) 0.5 mg/dL 0.2-1.0 N SGOT/AST (test code = AST) 28 IU/L 10-34 N SGPT/ALT (test code = ALT) 35 U/L 10-36 N ALKALINE PHOSPHATASE (test code = ALKP) 104 U/L 32-104 N [id number] 21:16:00* Test Item Value Reference Range Interpretation Comments LIPASE (test code = LIP) 22 U/L 0-190 N PROTHROMBIN [id number] 20:55:00* Test Item Value Reference Range Interpretation Comments PROTHROMBIN TIME PATIENT (test code = PTP) 12.2 SECONDS 10.3-12.9 N INTERNATIONAL NORMAL RATIO (test code = INR) 1.05 INR UNIT 0.9-1.11 N The INR is useful only for monitoring anticoagulant therapy.It may be unreliable in the initial phase of antigoagulationand in unstable patients. Indication for Anticoagulation Recommended INR 1. Prevention of venous thomboembolism 2.0-3.0in high-risk patients; treatment of venousthrombosis and pulmonary embolism aftera course of heparin; prevention of systemicembolism in a variety of conditions, including atrial fibrillation and prothetic tissue heart valves, 2. Prosthetic mechanical heart valves; 2.5-3.5recurrent systemic embolism. CBC W/AUTO [id number] 20:44:00* Test Item Value Reference Range Interpretation Comments WHITE BLOOD CELL (test code = WBC) 8.5 x10 3/uL 4.8-10.8 N RED BLOOD CELL (test code = RBC) 4.38 x10 6/uL 4.20-5.40 N HEMOGLOBIN (test code = HGB) 12.8 g/dL 14.5-20 L HEMATOCRIT (test code = HCT) 38.2 % 37.0-47.0 N MEAN CELL VOLUME (test code = MCV) 87.2 fL 81.0-99.0 N MEAN CELL HGB (test code = MCH) 29.2 pg 27-31 N MEAN CELL HGB CONCENTRATION (test code = MCHC) 33.5 G/DL 33-36.5 N RED CELL DISTRIBUTION WIDTH (test code = RDW) 13.7 % 12.9-16. 9 N PLATELET COUNT (test code = PLT) 325 150-440 N MEAN PLATELET VOLUME (test code = MPV) 9.2 fL 8.9-12.4 N NEUTROPHIL % (test code = NT%) 63.4 % 42.2-75.2 N LYMPHOCYTE % (test code = LY%) 26.6 % 20.5-51.1 N MONOCYTE % (test code = MO%) 7.8 % 1.7-9.3 N EOSINOPHIL % (test code = EO%) 1.6 % 0.0-7.0 N BASOPHIL % (test code = BA%) 0.4 % 0-2.5 N NEUTROPHIL # (test code = NT#) 5.38 x10 3/uL 1.80-7.70 N LYMPHOCYTE # (test code = LY#) 2.26 x10 3/uL 1.00-4.80 N MONOCYTE # (test code = MO#) 0.66 x10 3/uL 0.00-0.80 N EOSINOPHIL # (test code = EO#) 0.14 x10 3/uL 0.00-0.45 N BASOPHIL # (test code = BA#) 0.03 x10 3/uL 0.0-0.20 N URINALYSIS [id number] 11:30:00* Test Item Value Reference Range Interpretation Comments UA COLOR (test code = COLU) YELLOW YELLOW UA APPEARANCE (test code = APPU) Cloudy CLEAR A UA GLUCOSE DIPSTICK (test code = DGLUU) NEGATIVE mg/dL NEGATIVE UA BILIRUBIN DIPSTICK (test code = BILU) NEGATIVE mg/dL NEGATIVE UA KETONE DIPSTICK (test code = KETU) NEGATIVE mg/dL NEGATIVE UA SPECIFIC GRAVITY (test code = SGU) 1.023 1.001-1.035 UA BLOOD DIPSTICK (test code = MAT) 0.03 mg/dL (Trace) mg/dL NEGATI VE A UA PH DIPSTICK (test code = CHARISMA) 6.0 5.0-8.0 UA PROTEIN DIPSTICK (test code = PROU) 30 (1+) mg/dL NEGATIVE A UA UROBILINIOGEN DIPSTICK (test code = URO) Normal mg/dL NEGATIVE UA NITRITE DIPSTICK (test code = MANDI) POSITIVE NEGATIVE A UA LEUKOCYTE ESTERASE W REFLEX (test code = LEUUR) 500 Rah/u L (3+) Rah/uL NEGATIVE A UA WBC (test code = WBCU) 51-100 per HPF 0-5 A UA RBC (test code = RBCU) 6-10 #/HPF 0-5 A UA EPITHELIAL CELLS (test code = EPIU) MANY per HPF FEW UA BACTERIA (test code = BACU) MANY #/HPF NONE A UA RENAL CELLS (test code = VINCENZO) 0-2 #/HPF 0-5 UA HYALINE CAST (test code = HYALU) 0-2 #/LPF 0-5 UA MUCUS (test code = MUCU) MANY #/LPF FEW A Urine Source? Clean CatchDRUGS OF ABUSE SCREEN [id number] 11:20:00* Test Item Value Reference Range Interpretation Comments UA PH DIPSTICK (test code = CHARISMA) 6.0 5.0-8.0 URN COCAINE (test code = COCAURN) POSITIVE <300 ng/mL A This test provides only a preliminary test result. A morespecific alternate chemical method must be used in order toobtain a confirmed analytical result. Gas chromatography/mass spectrometry (GC/MS) is thepreferred confirmatory method. Other chemical confirmationmethods are available. Clinical consideration and professional judgment should be applied to any drug of abusetest result, particularly when preliminary positive resultsare used.Unconfirmed screening results must not be used fornon-medical purposes (e.g., employment testing, legaltesting). URN CANNABINOIDS (test code = CANNABURN) POSITIVE <50 ng/mL A This test provides only a preliminary test result. A morespecific alternate chemical method must be used in order toobtain a confirmed analytical result. Gas chromatography/mass spectrometry (GC/MS) is thepreferred confirmatory method. Other chemical confirmationmethods are available. Clinical consideration and professional judgment should be applied to any drug of abusetest result, particularly when preliminary positive resultsare used.Unconfirmed screening results must not be used fornon-medical purposes (e.g., employment testing, legaltesting). URN AMPHETAMINE (test code = AMPHETURN) NEGATIVE <1000 ng/mL URN BARBITURATE (test code = BARBITURN) NEGATIVE <200 ng/mL URN BENZODIAZEPINE (test code = BENZOURN) POSITIVE <200 ng/mL A This test provides only a preliminary test result. A morespecific alternate chemical method must be used in order toobtain a confirmed analytical result. Gas chromatography/mass spectrometry (GC/MS) is thepreferred confirmatory method. Other chemical confirmationmethods are available. Clinical consideration and professional judgment should be applied to any drug of abusetest result, particularly when preliminary positive resultsare used.Unconfirmed screening results must not be used fornon-medical purposes (e.g., employment testing, legaltesting). URN OPIATES (test code = OPIATURN) NEGATIVE <300 ng/mL URN PHENCYCLIDINE (PCP) (test code = PHENCURN) NEGATIVE <25 ng/ mL URN METHADONE (test code = METHAURN) NEGATIVE <300 ng/mL URINALYSIS [id number] 11:14:00* Test Item Value Reference Range Interpretation Comments UA COLOR (test code = COLU) YELLOW YELLOW UA APPEARANCE (test code = APPU) Cloudy CLEAR A UA GLUCOSE DIPSTICK (test code = DGLUU) NEGATIVE mg/dL NEGATIVE UA BILIRUBIN DIPSTICK (test code = BILU) NEGATIVE mg/dL NEGATIVE UA KETONE DIPSTICK (test code = KETU) NEGATIVE mg/dL NEGATIVE UA SPECIFIC GRAVITY (test code = SGU) 1.023 1.001-1.035 UA BLOOD DIPSTICK (test code = MAT) 0.03 mg/dL (Trace) mg/dL NEGATI VE A UA PH DIPSTICK (test code = CHARISMA) 6.0 5.0-8.0 UA PROTEIN DIPSTICK (test code = PROU) 30 (1+) mg/dL NEGATIVE A UA UROBILINIOGEN DIPSTICK (test code = URO) Normal mg/dL NEGATIVE UA NITRITE DIPSTICK (test code = MANDI) POSITIVE NEGATIVE A UA LEUKOCYTE ESTERASE W REFLEX (test code = LEUUR) 500 Rah/u L (3+) Rah/uL NEGATIVE A UA WBC (test code = WBCU) per HPF 0-5 UA RBC (test code = RBCU) per HPF 0-5 UA EPITHELIAL CELLS (test code = EPIU) per HPF Few UA BACTERIA (test code = BACU) per HPF NONE Urine Source? Clean CatchDRUGS OF ABUSE SCREEN [id number] 11:09:00* Test Item Value Reference Range Interpretation Comments UA PH DIPSTICK (test code = CHARISMA) 5.0-8.0 URN COCAINE (test code = COCAURN) POSITIVE <300 ng/mL A This test provides only a preliminary test result. A morespecific alternate chemical method must be used in order toobtain a confirmed analytical result. Gas chromatography/mass spectrometry (GC/MS) is thepreferred confirmatory method. Other chemical confirmationmethods are available. Clinical consideration and professional judgment should be applied to any drug of abusetest result, particularly when preliminary positive resultsare used.Unconfirmed screening results must not be used fornon-medical purposes (e.g., employment testing, legaltesting). URN CANNABINOIDS (test code = CANNABURN) POSITIVE <50 ng/mL A This test provides only a preliminary test result. A morespecific alternate chemical method must be used in order toobtain a confirmed analytical result. Gas chromatography/mass spectrometry (GC/MS) is thepreferred confirmatory method. Other chemical confirmationmethods are available. Clinical consideration and professional judgment should be applied to any drug of abusetest result, particularly when preliminary positive resultsare used.Unconfirmed screening results must not be used fornon-medical purposes (e.g., employment testing, legaltesting). URN AMPHETAMINE (test code = AMPHETURN) NEGATIVE <1000 ng/mL URN BARBITURATE (test code = BARBITURN) NEGATIVE <200 ng/mL URN BENZODIAZEPINE (test code = BENZOURN) POSITIVE <200 ng/mL A This test provides only a preliminary test result. A morespecific alternate chemical method must be used in order toobtain a confirmed analytical result. Gas chromatography/mass spectrometry (GC/MS) is thepreferred confirmatory method. Other chemical confirmationmethods are available. Clinical consideration and professional judgment should be applied to any drug of abusetest result, particularly when preliminary positive resultsare used.Unconfirmed screening results must not be used fornon-medical purposes (e.g., employment testing, legaltesting). URN OPIATES (test code = OPIATURN) NEGATIVE <300 ng/mL URN PHENCYCLIDINE (PCP) (test code = PHENCURN) NEGATIVE <25 ng/ mL URN METHADONE (test code = METHAURN) NEGATIVE <300 ng/mL BASIC METABOLIC [id number] 08:41:00* Test Item Value Reference Range Interpretation Comments SODIUM (test code = NA) 141 mmol/L 136-145 N POTASSIUM (test code = K) 3.6 mmol/L 3.5-5.1 N CHLORIDE (test code = CL) 110.0 mmol/L 98-107 H CARBON DIOXIDE (test code = CO2) 23.0 mmol/L 21-32 N ANION GAP (test code = GAP) 11.6 10-20 N GLUCOSE (test code = GLU) 94 mg/dL 74-106 N BLOOD UREA NITROGEN (test code = BUN) 14 mg/dL 7-18 N GLOMERULAR FILTRATION RATE (test code = GFR) > 60 mL/min >=60 Estimated GFR by using Modified MDRD formula.Chronic kidney disease is defined as either kidney damageor GFR <60 mL/min/1.73 m2 for >3 months. CREATININE (test code = CREAT) 1.00 mg/dL 0.55-1.02 N Note change in reference range due to change in reagent. BUN/CREATININE RATIO (test code = BUN/CREA) 14.0 10-20 N CALCIUM (test code = CA) 8.8 mg/dL 8.5-10.1 N HCG SERUM [id number] 08:41:00* Test Item Value Reference Range Interpretation Comments HCG SERUM QUAL (test code = HCGQL) NEGATIVE NEGATIVE This HCGQL test is NOT applicable for MALE patients.Check with nurse about probable order error.If Tumor Marker Test needed, nurse should order test "HCGTU"(Test #550.26848) [id number] 08:41:00* Test Item Value Reference Range Interpretation Comments TROPONIN-I (test code = TROPI) <0.015 ng/mL 0-0.045 N HEPATIC FUNCTION [id number] 08:37:00* Test Item Value Reference Range Interpretation Comments TOTAL PROTEIN (test code = PROT) 6.7 gram/dL 6.4-8.2 N ALBUMIN (test code = ALB) 3.5 g/dL 3.4-5.0 N GLOBULIN (test code = GLOB) 3.2 gram/dL 2.7-4.2 N ALBUMIN/GLOBULIN RATIO (test code = A/G) 1.1 0.75-1.50 N BILIRUBIN TOTAL (test code = BILT) 0.30 mg/dL 0.0-1.0 N BILIRUBIN DIRECT (test code = BILD) 0.12 mg/dL 0.0-0.20 N SGOT/AST (test code = AST) 19 IUnit/L 15-37 N SGPT/ALT (test code = ALT) 36 IUnit/L 12-78 N ALKALINE PHOSPHATASE TOTAL (test code = ALKP) 105 IUnit/L 45-117 N Note change in reference range due to change in reagent. [id number] 08:37:00* Test Item Value Reference Range Interpretation Comments LIPASE (test code = LIP) 85 U/L 73.0-393.0 N BASIC METABOLIC [id number] 08:29:00* Test Item Value Reference Range Interpretation Comments SODIUM (test code = NA) 141 mmol/L 136-145 N POTASSIUM (test code = K) 3.6 mmol/L 3.5-5.1 N CHLORIDE (test code = CL) 110.0 mmol/L 98-107 H CARBON DIOXIDE (test code = CO2) mmol/L 21-32 ANION GAP (test code = GAP) 10-20 GLUCOSE (test code = GLU) mg/dL 74-106 BLOOD UREA NITROGEN (test code = BUN) mg/dL 7-18 GLOMERULAR FILTRATION RATE (test code = GFR) mL/min >=60 CREATININE (test code = CREAT) mg/dL 0.55-1.02 BUN/CREATININE RATIO (test code = BUN/CREA) 10-20 CALCIUM (test code = CA) mg/dL 8.5-10.1 HCG SERUM [id number] 08:29:00* Test Item Value Reference Range Interpretation Comments HCG SERUM QUAL (test code = HCGQL) NEGATIVE NEGATIVE This HCGQL test is NOT applicable for MALE patients.Check with nurse about probable order error.If Tumor Marker Test needed, nurse should order test "HCGTU"(Test #550.80946) [id number] 08:29:00* Test Item Value Reference Range Interpretation Comments TROPONIN-I (test code = TROPI) ng/mL 0-0.045 BASIC METABOLIC [id number] 08:28:00* Test Item Value Reference Range Interpretation Comments SODIUM (test code = NA) 141 mmol/L 136-145 N POTASSIUM (test code = K) 3.6 mmol/L 3.5-5.1 N CHLORIDE (test code = CL) 110.0 mmol/L 98-107 H CARBON DIOXIDE (test code = CO2) mmol/L 21-32 ANION GAP (test code = GAP) 10-20 GLUCOSE (test code = GLU) mg/dL 74-106 BLOOD UREA NITROGEN (test code = BUN) mg/dL 7-18 GLOMERULAR FILTRATION RATE (test code = GFR) mL/min >=60 CREATININE (test code = CREAT) mg/dL 0.55-1.02 BUN/CREATININE RATIO (test code = BUN/CREA) 10-20 CALCIUM (test code = CA) mg/dL 8.5-10.1 HCG SERUM [id number] 08:28:00* Test Item Value Reference Range Interpretation Comments HCG SERUM QUAL (test code = HCGQL) NEGATIVE [id number] 08:28:00* Test Item Value Reference Range Interpretation Comments TROPONIN-I (test code = TROPI) ng/mL 0-0.045 TROPONIN I [id number] 08:19:00* Test Item Value Reference Range Interpretation Comments TROPONIN I RAPID (test code = TROPIRAP) 0.01 ng/mL <0.08 Please Note New Reference Range 0.00-0.079 ng/mL - Negative>or= 0.08 ng/mL - Positive The use of serial sampling and testing protocol is arecommended practice.An elevated troponin level alone is often not sufficient fordiagnosis of myocardial infarction. Troponin results obtained by different assays may vary.Evaluation of the extent of myocardial damage based onincrease of troponin would be valid only if similarmethodology is used. CBC W/O [id number] 08:17:00* Test Item Value Reference Range Interpretation Comments WHITE BLOOD CELL (test code = WBC) 6.0 K/mm3 4.5-12.5 N RED BLOOD CELL (test code = RBC) 4.27 mill/mm3 3.7-5.2 N HEMOGLOBIN (test code = HGB) 12.5 gram/dL 11.5-15.5 N HEMATOCRIT (test code = HCT) 37.2 % 36.0-46.0 N MEAN CELL VOLUME (test code = MCV) 87.1 fL 80-98 N MEAN CELL HGB (test code = MCH) 29.3 picogram 27.0-33.0 N MEAN CELL HGB CONCETRATION (test code = MCHC) 33.6 gram/dL 33.0-36. 0 N RED CELL DISTRIBUTION WIDTH (test code = RDW) 13.7 % 11.6-16. 2 N PLATELET COUNT (test code = PLT) 270 K/mm3 150-450 N MEAN PLATELET VOLUME (test code = MPV) 9.4 fL 6.7-11.0 N CBC W/O [id number] 08:14:00* Test Item Value Reference Range Interpretation Comments WHITE BLOOD CELL (test code = WBC) K/mm3 4.5-12.5 RED BLOOD CELL (test code = RBC) mill/mm3 3.7-5.2 HEMOGLOBIN (test code = HGB) 12.5 gram/dL 11.5-15.5 N HEMATOCRIT (test code = HCT) 37.2 % 36.0-46.0 N MEAN CELL VOLUME (test code = MCV) fL 80-98 MEAN CELL HGB (test code = MCH) picogram 27.0-33.0 MEAN CELL HGB CONCETRATION (test code = MCHC) gram/dL 33.0-36. 0 RED CELL DISTRIBUTION WIDTH (test code = RDW) % 11.6-16. 2 PLATELET COUNT (test code = PLT) K/mm3 150-450 MEAN PLATELET VOLUME (test code = MPV) fL 6.7-11.0 - XR CHEST 1 [id number] 07:53:00 FAX: Dany Kaur MD [phone] [place]: St: REG Name: ANGELA DUPREE [facility] : [birth year] Age/S: 43/F [address] [facility] Unit #: [id number] Loc: [place] [address] Phys: Dany Kaur MD Acct: [id number] Dis Date: Status: REG ER PHONE #: [phone] Exam Date: 01/31/2019 0744 FAX #: [phone] Reason: CHEST PAIN EXAMS: CPT CODE: [id number] XR CHEST 1 V [id number] REASON FOR EXAM: CHEST PAIN EXAM ORDER DATE: 01/31/2019 7:35 AM Ordering Pillo: Sindy Kaur MD PROCEDURE: - XR CHEST 1 V COMPARI SON: 01/27/2019 FINDINGS: Portable AP frontal view of the chest ob tained at 7:44 AM shows clear lungs without evidence of consolidation. The re is no evidence of effusion. The heart size is within normal limits. Pulmonary vasculatures are unremarkable. IMPRESSION: Patchy atelectasis in the left base Electronically Signed by Pillo Mariano 01/31/2019 at 0753 Reported and signed by: Boom Munguia CC: Dany Kaur MD Technologist: Alexa Templeton([place]) Trnscrd Date/Time/By: 01/31/2019 (0753) : By: Teresita Orig Print D/T: S: 0 01/31/2019 (9961) PAGE 1 Signed Re port - CT ABD PELVIS [id number] 11:27:00 Name: ANGELA ESPINOSA [facility] : 1975 Age/S: 43 / F [address] Unit #: [id number] Loc: [place] [address] Phys: QuijanoAshutosh Acct: [id number] Di s Date: Status: REG ER PHONE #: [phone] Exam Date: 01/27/2019 1050 FAX #: [phone] Reason: abd pain, r/o appendicitis EXAMS: CPT CODE: [id number] CT ABD PELVIS W/CONT [id number] REASON FOR EXAM: abd pain, r/o appendicitis EXAM ORDER DATE: 01/27/2019 8:34 AM Ordering Pillo: Nyla Quijano DO PROCEDURE: - CT ABD PELVIS W/CONT COMPARISON: FINDINGS: CT images of the abdomen and pelvis were obtained with IV and without oral contrast at 5mm. Dose modulation, iterative reconstruction, and/or weight based adjustment of the MA/KV was utilized to reduce the radiation dose to as low as reas onably achievable. Intravenous contrast: 100cc of Omnipaque 370. The liver, spleen, pancreas are grossly within normal limits. The patient is status post cholecystectomy The kidneys are within normal limits. The urinary bladder is unremarkable. The colon, small bowel, and stomach are within normal limits without ramiro dence of obstruction. The appendix was not seen but there is no secondary evidence to suggest acute appendicitis. No evidence of free air or free fluid. The patient is status post hysterectomy IMP RESSION: No acute findings in the abdomen at 1127 Reported and signed by : Eliezer Pinto M.D. CC: Nyla Quijano DO Technologist:Elayne Forrest,RT(R),CT CTDI: DLP: Trnscb Da te/Time: 01/27/2019 (1127) t.DIONR.VTL Orig Print D/T: S: 0 01/27/2019 (4914) PAGE 1 Signed Report URINALYSIS [id number] 10:00:00* Test Item Value Reference Range Interpretation Comments UA COLOR (test code = COLU) YELLOW YELLOW UA APPEARANCE (test code = APPU) TURBID CLEAR A UA GLUCOSE DIPSTICK (test code = DGLUU) NEGATIVE mg/dL NEGATIVE UA BILIRUBIN DIPSTICK (test code = BILU) NEGATIVE mg/dL NEGATIVE UA KETONE DIPSTICK (test code = KETU) NEGATIVE mg/dL NEGATIVE UA SPECIFIC GRAVITY (test code = SGU) 1.013 1.001-1.035 UA BLOOD DIPSTICK (test code = MAT) 0.06 mg/dL (1+) mg/dL NEGATIVE A UA PH DIPSTICK (test code = CHARISMA) 6.0 5.0-8.0 UA PROTEIN DIPSTICK (test code = PROU) 10 (Trace) mg/dL NEGATIVE A UA UROBILINIOGEN DIPSTICK (test code = URO) Normal mg/dL NEGATIVE UA NITRITE DIPSTICK (test code = MANDI) POSITIVE NEGATIVE A UA LEUKOCYTE ESTERASE W REFLEX (test code = LEUUR) 500 Rah/u L (3+) Rah/uL NEGATIVE A UA WBC (test code = WBCU) 21-50 per HPF 0-5 A UA RBC (test code = RBCU) 21-50 #/HPF 0-5 UA EPITHELIAL CELLS (test code = EPIU) FEW per HPF FEW UA BACTERIA (test code = BACU) MANY #/HPF NONE A UA MUCUS (test code = MUCU) FEW #/LPF FEW Urine Source? Clean CatchBASIC METABOLIC [id number] 09:54:00* Test Item Value Reference Range Interpretation Comments SODIUM (test code = NA) 145 mmol/L 136-145 N POTASSIUM (test code = K) 3.6 mmol/L 3.5-5.1 N CHLORIDE (test code = CL) 112.0 mmol/L 98-107 H CARBON DIOXIDE (test code = CO2) 23.0 mmol/L 21-32 N ANION GAP (test code = GAP) 13.6 10-20 N GLUCOSE (test code = GLU) 105 mg/dL 74-106 N BLOOD UREA NITROGEN (test code = BUN) 12 mg/dL 7-18 N GLOMERULAR FILTRATION RATE (test code = GFR) > 60 mL/min >=60 Estimated GFR by using Modified MDRD formula.Chronic kidney disease is defined as either kidney damageor GFR <60 mL/min/1.73 m2 for >3 months. CREATININE (test code = CREAT) 1.00 mg/dL 0.55-1.02 N Note change in reference range due to change in reagent. BUN/CREATININE RATIO (test code = BUN/CREA) 12.6 10-20 N CALCIUM (test code = CA) 8.6 mg/dL 8.5-10.1 N HEPATIC FUNCTION [id number] 09:54:00* Test Item Value Reference Range Interpretation Comments TOTAL PROTEIN (test code = PROT) 6.8 gram/dL 6.4-8.2 N ALBUMIN (test code = ALB) 3.4 g/dL 3.4-5.0 N GLOBULIN (test code = GLOB) 3.4 gram/dL 2.7-4.2 N ALBUMIN/GLOBULIN RATIO (test code = A/G) 1.0 0.75-1.50 N BILIRUBIN TOTAL (test code = BILT) 0.40 mg/dL 0.0-1.0 N BILIRUBIN DIRECT (test code = BILD) 0.14 mg/dL 0.0-0.20 N SGOT/AST (test code = AST) 16 IUnit/L 15-37 N SGPT/ALT (test code = ALT) 33 IUnit/L 12-78 N ALKALINE PHOSPHATASE TOTAL (test code = ALKP) 98 IUnit/L 45-117 N Note change in reference range due to change in reagent. [id number] 09:54:00* Test Item Value Reference Range Interpretation Comments LIPASE (test code = LIP) 72 U/L 73.0-393.0 L HCG SERUM [id number] 09:54:00* Test Item Value Reference Range Interpretation Comments HCG SERUM QUAL (test code = HCGQL) NEGATIVE NEGATIVE This HCGQL test is NOT applicable for MALE patients.Check with nurse about probable order error.If Tumor Marker Test needed, nurse should order test "HCGTU"(Test #550.59656) [id number] 09:54:00* Test Item Value Reference Range Interpretation Comments TROPONIN-I (test code = TROPI) <0.015 ng/mL 0-0.045 N BASIC METABOLIC [id number] 09:42:00* Test Item Value Reference Range Interpretation Comments SODIUM (test code = NA) 145 mmol/L 136-145 N POTASSIUM (test code = K) 3.6 mmol/L 3.5-5.1 N CHLORIDE (test code = CL) 112.0 mmol/L 98-107 H CARBON DIOXIDE (test code = CO2) mmol/L 21-32 ANION GAP (test code = GAP) 10-20 GLUCOSE (test code = GLU) mg/dL 74-106 BLOOD UREA NITROGEN (test code = BUN) mg/dL 7-18 GLOMERULAR FILTRATION RATE (test code = GFR) mL/min >=60 CREATININE (test code = CREAT) mg/dL 0.55-1.02 BUN/CREATININE RATIO (test code = BUN/CREA) 10-20 CALCIUM (test code = CA) mg/dL 8.5-10.1 HEPATIC FUNCTION [id number] 09:42:00* Test Item Value Reference Range Interpretation Comments TOTAL PROTEIN (test code = PROT) gram/dL 6.4-8.2 ALBUMIN (test code = ALB) g/dL 3.4-5.0 GLOBULIN (test code = GLOB) gram/dL 2.7-4.2 ALBUMIN/GLOBULIN RATIO (test code = A/G) 0.75-1.50 BILIRUBIN TOTAL (test code = BILT) mg/dL 0.0-1.0 BILIRUBIN DIRECT (test code = BILD) mg/dL 0.0-0.20 SGOT/AST (test code = AST) IUnit/L 15-37 SGPT/ALT (test code = ALT) IUnit/L 12-78 ALKALINE PHOSPHATASE TOTAL (test code = ALKP) IUnit/L 45-117 [id number] 09:42:00* Test Item Value Reference Range Interpretation Comments LIPASE (test code = LIP) U/L 73.0-393.0 HCG SERUM [id number] 09:42:00* Test Item Value Reference Range Interpretation Comments HCG SERUM QUAL (test code = HCGQL) NEGATIVE NEGATIVE This HCGQL test is NOT applicable for MALE patients.Check with nurse about probable order error.If Tumor Marker Test needed, nurse should order test "HCGTU"(Test #550.42198) [id number] 09:42:00* Test Item Value Reference Range Interpretation Comments TROPONIN-I (test code = TROPI) ng/mL 0-0.045 BASIC METABOLIC [id number] 09:38:00* Test Item Value Reference Range Interpretation Comments SODIUM (test code = NA) 145 mmol/L 136-145 N POTASSIUM (test code = K) 3.6 mmol/L 3.5-5.1 N CHLORIDE (test code = CL) 112.0 mmol/L 98-107 H CARBON DIOXIDE (test code = CO2) mmol/L 21-32 ANION GAP (test code = GAP) 10-20 GLUCOSE (test code = GLU) mg/dL 74-106 BLOOD UREA NITROGEN (test code = BUN) mg/dL 7-18 GLOMERULAR FILTRATION RATE (test code = GFR) mL/min >=60 CREATININE (test code = CREAT) mg/dL 0.55-1.02 BUN/CREATININE RATIO (test code = BUN/CREA) 10-20 CALCIUM (test code = CA) mg/dL 8.5-10.1 HEPATIC FUNCTION [id number] 09:38:00* Test Item Value Reference Range Interpretation Comments TOTAL PROTEIN (test code = PROT) gram/dL 6.4-8.2 ALBUMIN (test code = ALB) g/dL 3.4-5.0 GLOBULIN (test code = GLOB) gram/dL 2.7-4.2 ALBUMIN/GLOBULIN RATIO (test code = A/G) 0.75-1.50 BILIRUBIN TOTAL (test code = BILT) mg/dL 0.0-1.0 BILIRUBIN DIRECT (test code = BILD) mg/dL 0.0-0.20 SGOT/AST (test code = AST) IUnit/L 15-37 SGPT/ALT (test code = ALT) IUnit/L 12-78 ALKALINE PHOSPHATASE TOTAL (test code = ALKP) IUnit/L 45-117 [id number] 09:38:00* Test Item Value Reference Range Interpretation Comments LIPASE (test code = LIP) U/L 73.0-393.0 HCG SERUM [id number] 09:38:00* Test Item Value Reference Range Interpretation Comments HCG SERUM QUAL (test code = HCGQL) NEGATIVE [id number] 09:38:00* Test Item Value Reference Range Interpretation Comments TROPONIN-I (test code = TROPI) ng/mL 0-0.045 CBC W/O [id number] 09:37:00* Test Item Value Reference Range Interpretation Comments WHITE BLOOD CELL (test code = WBC) 6.2 K/mm3 4.5-12.5 N RED BLOOD CELL (test code = RBC) 4.07 mill/mm3 3.7-5.2 N HEMOGLOBIN (test code = HGB) 12.1 gram/dL 11.5-15.5 N HEMATOCRIT (test code = HCT) 35.5 % 36.0-46.0 L MEAN CELL VOLUME (test code = MCV) 87.2 fL 80-98 N MEAN CELL HGB (test code = MCH) 29.7 picogram 27.0-33.0 N MEAN CELL HGB CONCETRATION (test code = MCHC) 34.1 gram/dL 33.0-36. 0 N RED CELL DISTRIBUTION WIDTH (test code = RDW) 13.7 % 11.6-16. 2 N PLATELET COUNT (test code = PLT) 245 K/mm3 150-450 N MEAN PLATELET VOLUME (test code = MPV) 8.9 fL 6.7-11.0 N URINALYSIS [id number] 09:36:00* Test Item Value Reference Range Interpretation Comments UA COLOR (test code = COLU) YELLOW YELLOW UA APPEARANCE (test code = APPU) TURBID CLEAR A UA GLUCOSE DIPSTICK (test code = DGLUU) NEGATIVE mg/dL NEGATIVE UA BILIRUBIN DIPSTICK (test code = BILU) NEGATIVE mg/dL NEGATIVE UA KETONE DIPSTICK (test code = KETU) NEGATIVE mg/dL NEGATIVE UA SPECIFIC GRAVITY (test code = SGU) 1.013 1.001-1.035 UA BLOOD DIPSTICK (test code = MAT) 0.06 mg/dL (1+) mg/dL NEGATIVE A UA PH DIPSTICK (test code = CHARISMA) 6.0 5.0-8.0 UA PROTEIN DIPSTICK (test code = PROU) 10 (Trace) mg/dL NEGATIVE A UA UROBILINIOGEN DIPSTICK (test code = URO) Normal mg/dL NEGATIVE UA NITRITE DIPSTICK (test code = MANDI) POSITIVE NEGATIVE A UA LEUKOCYTE ESTERASE W REFLEX (test code = LEUUR) 500 Rah/u L (3+) Rah/uL NEGATIVE A UA WBC (test code = WBCU) per HPF 0-5 UA RBC (test code = RBCU) per HPF 0-5 UA EPITHELIAL CELLS (test code = EPIU) per HPF Few UA BACTERIA (test code = BACU) per HPF NONE Urine Source? Clean CatchCBC W/O [id number] 09:29:00* Test Item Value Reference Range Interpretation Comments WHITE BLOOD CELL (test code = WBC) K/mm3 4.5-12.5 RED BLOOD CELL (test code = RBC) mill/mm3 3.7-5.2 HEMOGLOBIN (test code = HGB) 12.1 gram/dL 11.5-15.5 N HEMATOCRIT (test code = HCT) % 36.0-46.0 MEAN CELL VOLUME (test code = MCV) fL 80-98 MEAN CELL HGB (test code = MCH) picogram 27.0-33.0 MEAN CELL HGB CONCETRATION (test code = MCHC) gram/dL 33.0-36. 0 RED CELL DISTRIBUTION WIDTH (test code = RDW) % 11.6-16. 2 PLATELET COUNT (test code = PLT) K/mm3 150-450 MEAN PLATELET VOLUME (test code = MPV) fL 6.7-11.0 - XR CHEST 1 [id number] 09:11:00 FAX: Nyla Quijano DO [place]: [address]: REG Name: ISMAEL DUPREELICA [facility] : [birth year] Age/S: 43/F [address] Unit #: [id number] Loc: [place] [address] Phys: Nyla Quijano DO Acct: [id number] Dis Date: Status: REG ER PHONE #: [phone] Exam Date: 01/27/2019 0843 FAX #: [phone] Reason: CHEST PAIN EXAMS: CPT CODE: [id number] XR CHEST 1 V 11437 REASON FOR EXAM: CHEST PAIN Exam Order Date: 01/27/2019 8:32 AM Ordering M.D.: Nyla Quijano DO PROCEDURE: - XR CHEST 1 V BRET RISON: Frontal chest radiograph 2 days prior FINDINGS: The lungs are clear other than mild subsegmental atelectasis in the lung base s. There is no pleural effusion or pneumothorax. Pulmonary vascularity is within normal limits. Cardiomediastinal silhouette is normal in s ize for technique. The mediastinal contours are within normal limits. Musculoskeletal structures are within normal limits. The visualized upper abdomen is within normal limits. IMPRE SSION: No acute cardiopulmonary process. Electronically Sign ed by Sanjay Roman MD on 01/27/2019 at 0911 Reported and signed by: Sanjay Roman MD CC: Nyla Quijano DO Technologist: TRACY CRAWFORD JR Trnscrd Date/Time/By: 01/27/2019 (0911) : By: [email or web address] Orig P [place] D/T: S: 01/27/2019 (0924) PAGE 1 Signed Report [id number] 15:27:00* Test Item Value Reference Range Interpretation Comments TROPONIN-I (test code = TROPI) <0.015 ng/mL 0-0.045 N - CT ABD PELVIS [id number] 13:50:00 Name: ANGELA ESPINOSA [facility] : 1975 Age/S: 43 / F [address] Unit #: [id number] Loc: [place] [address] Phys: Chacho Aguilar DO Acct: [id number] Dis Date: Status: REG ER PHONE #: [phone] Exam Date: 01/25/2019 1328 FAX #: [phone] Reason: Lower abd pain EXAMS: CPT CODE: [id number] CT ABD PELVIS W/CONT [id number] REASON FOR EXAM: Lower abd pain EXAM ORDER DATE: 01/25/2019 8:37 AM Ordering M.D.: Chacho Aguilar DO PROCEDURE: - CT ABD PELVIS W/CONT contrast-enhanced axial CT images were acquired through the abdomen/pelvis at 5 mm intervals. Sagittal and coronal reformatted images were generated. Automated exposure control was utilized for this reduction. Phases of contrast: venous and delayed COMPARISON: CT abdomen and pelvis December 25, 2018 FINDINGS: Visualized thorax: There is subsegmental atelectasis in the lung bases. Hepatobiliary system: Hepatic steatosis. Prior cholecystectomy. Pancreas: Normal Spleen: Normal Adrenal glands: Normal Genitourinary system: Subcentimeter exophytic 1 cm cortical lesion in the left kidney is unchanged from the prior exam. This lesion is not demonstrate any appreciable enhancement and has a density of less than 10 Hounsfield units. This likely represents a simple cyst or minimally complex cyst and does not warrant further evaluation. Prior hysterectomy. Gastrointestinal tract and appendix: Normal. Abdominal vascular structures: Normal Peritoneum and retroperitoneum: No free fluid o r free air. No omental or mesenteric masses. No abnormal lymph nodes. Musculoskeletal structures and abdominal wall: Postsurgical changes of ventral hernia repair. PAGE 1 Signed Report (CONTINUED) Name: ANGELA ESPINOSA [facility] : 1975 Age/S: 43 / F [address] [facility] Unit #: [id number] Loc: [place] [address] Phys: Chacho Aguilar DO Acct: [id number] Dis Date: Status: REG ER PHONE #: [phone] Exam Date: 01/25/2019 1328 FAX #: [phone] Reason: Lower abd pain EXAMS: CPT CODE: [id number] CT ABD PELVIS W/CONT 11521 <Continued> IMPRESSION: No acute intra-abdominal process. Hepatic steatosis. at 1350 Reported and signed by: Sanjay Roman MD CC: Vicente Bui MD; Chacho Aguilar DO Technologist:Lupillo Forrest RT(R)(CT) CTDI: DLP: Trnscb Date/Time: 01/25/2019 ([id number]) [email or web address] Orig Print D/T: S: 01/25/2019 (5675) PAGE 2 Signed Report BASIC METABOLIC [id number] 13:10:00* Test Item Value Reference Range Interpretation Comments SODIUM (test code = NA) 142 mmol/L 136-145 N POTASSIUM (test code = K) 3.7 mmol/L 3.5-5.1 N CHLORIDE (test code = CL) 109.0 mmol/L 98-107 H CARBON DIOXIDE (test code = CO2) 27.0 mmol/L 21-32 N ANION GAP (test code = GAP) 9.7 10-20 L GLUCOSE (test code = GLU) 85 mg/dL 74-106 N BLOOD UREA NITROGEN (test code = BUN) 10 mg/dL 7-18 N GLOMERULAR FILTRATION RATE (test code = GFR) > 60 mL/min >=60 Estimated GFR by using Modified MDRD formula.Chronic kidney disease is defined as either kidney damageor GFR <60 mL/min/1.73 m2 for >3 months. CREATININE (test code = CREAT) 1.00 mg/dL 0.55-1.02 N Note change in reference range due to change in reagent. BUN/CREATININE RATIO (test code = BUN/CREA) 10.0 10-20 N CALCIUM (test code = CA) 9.4 mg/dL 8.5-10.1 N HEPATIC FUNCTION [id number] 13:10:00* Test Item Value Reference Range Interpretation Comments TOTAL PROTEIN (test code = PROT) 6.9 gram/dL 6.4-8.2 N ALBUMIN (test code = ALB) 3.6 g/dL 3.4-5.0 N GLOBULIN (test code = GLOB) 3.3 gram/dL 2.7-4.2 N ALBUMIN/GLOBULIN RATIO (test code = A/G) 1.1 0.75-1.50 N BILIRUBIN TOTAL (test code = BILT) 0.30 mg/dL 0.0-1.0 N BILIRUBIN DIRECT (test code = BILD) 0.10 mg/dL 0.0-0.20 N SGOT/AST (test code = AST) 18 IUnit/L 15-37 N SGPT/ALT (test code = ALT) 33 IUnit/L 12-78 N ALKALINE PHOSPHATASE TOTAL (test code = ALKP) 100 IUnit/L 45-117 N Note change in reference range due to change in reagent. [id number] 13:10:00* Test Item Value Reference Range Interpretation Comments LIPASE (test code = LIP) 77 U/L 73.0-393.0 N HCG SERUM [id number] 13:10:00* Test Item Value Reference Range Interpretation Comments HCG SERUM QUAL (test code = HCGQL) NEGATIVE NEGATIVE This HCGQL test is NOT applicable for MALE patients.Check with nurse about probable order error.If Tumor Marker Test needed, nurse should order test "HCGTU"(Test #550.12260) [id number] 13:10:00* Test Item Value Reference Range Interpretation Comments TROPONIN-I (test code = TROPI) <0.015 ng/mL 0-0.045 N BASIC METABOLIC [id number] 12:58:00* Test Item Value Reference Range Interpretation Comments SODIUM (test code = NA) 142 mmol/L 136-145 N POTASSIUM (test code = K) 3.7 mmol/L 3.5-5.1 N CHLORIDE (test code = CL) 109.0 mmol/L 98-107 H CARBON DIOXIDE (test code = CO2) mmol/L 21-32 ANION GAP (test code = GAP) 10-20 GLUCOSE (test code = GLU) mg/dL 74-106 BLOOD UREA NITROGEN (test code = BUN) mg/dL 7-18 GLOMERULAR FILTRATION RATE (test code = GFR) mL/min >=60 CREATININE (test code = CREAT) mg/dL 0.55-1.02 BUN/CREATININE RATIO (test code = BUN/CREA) 10-20 CALCIUM (test code = CA) mg/dL 8.5-10.1 HEPATIC FUNCTION [id number] 12:58:00* Test Item Value Reference Range Interpretation Comments TOTAL PROTEIN (test code = PROT) gram/dL 6.4-8.2 ALBUMIN (test code = ALB) g/dL 3.4-5.0 GLOBULIN (test code = GLOB) gram/dL 2.7-4.2 ALBUMIN/GLOBULIN RATIO (test code = A/G) 0.75-1.50 BILIRUBIN TOTAL (test code = BILT) mg/dL 0.0-1.0 BILIRUBIN DIRECT (test code = BILD) mg/dL 0.0-0.20 SGOT/AST (test code = AST) IUnit/L 15-37 SGPT/ALT (test code = ALT) IUnit/L 12-78 ALKALINE PHOSPHATASE TOTAL (test code = ALKP) IUnit/L 45-117 [id number] 12:58:00* Test Item Value Reference Range Interpretation Comments LIPASE (test code = LIP) U/L 73.0-393.0 HCG SERUM [id number] 12:58:00* Test Item Value Reference Range Interpretation Comments HCG SERUM QUAL (test code = HCGQL) NEGATIVE NEGATIVE This HCGQL test is NOT applicable for MALE patients.Check with nurse about probable order error.If Tumor Marker Test needed, nurse should order test "HCGTU"(Test #550.04109) [id number] 12:58:00* Test Item Value Reference Range Interpretation Comments TROPONIN-I (test code = TROPI) ng/mL 0-0.045 BASIC METABOLIC [id number] 12:52:00* Test Item Value Reference Range Interpretation Comments SODIUM (test code = NA) mmol/L 136-145 POTASSIUM (test code = K) mmol/L 3.5-5.1 CHLORIDE (test code = CL) mmol/L 98-107 CARBON DIOXIDE (test code = CO2) mmol/L 21-32 ANION GAP (test code = GAP) 10-20 GLUCOSE (test code = GLU) mg/dL 74-106 BLOOD UREA NITROGEN (test code = BUN) mg/dL 7-18 GLOMERULAR FILTRATION RATE (test code = GFR) mL/min >=60 CREATININE (test code = CREAT) mg/dL 0.55-1.02 BUN/CREATININE RATIO (test code = BUN/CREA) 10-20 CALCIUM (test code = CA) mg/dL 8.5-10.1 HEPATIC FUNCTION [id number] 12:52:00* Test Item Value Reference Range Interpretation Comments TOTAL PROTEIN (test code = PROT) gram/dL 6.4-8.2 ALBUMIN (test code = ALB) g/dL 3.4-5.0 GLOBULIN (test code = GLOB) gram/dL 2.7-4.2 ALBUMIN/GLOBULIN RATIO (test code = A/G) 0.75-1.50 BILIRUBIN TOTAL (test code = BILT) mg/dL 0.0-1.0 BILIRUBIN DIRECT (test code = BILD) mg/dL 0.0-0.20 SGOT/AST (test code = AST) IUnit/L 15-37 SGPT/ALT (test code = ALT) IUnit/L 12-78 ALKALINE PHOSPHATASE TOTAL (test code = ALKP) IUnit/L 45-117 [id number] 12:52:00* Test Item Value Reference Range Interpretation Comments LIPASE (test code = LIP) U/L 73.0-393.0 HCG SERUM [id number] 12:52:00* Test Item Value Reference Range Interpretation Comments HCG SERUM QUAL (test code = HCGQL) NEGATIVE NEGATIVE This HCGQL test is NOT applicable for MALE patients.Check with nurse about probable order error.If Tumor Marker Test needed, nurse should order test "HCGTU"(Test #550.55315) [id number] 12:52:00* Test Item Value Reference Range Interpretation Comments TROPONIN-I (test code = TROPI) ng/mL 0-0.045 CBC W/O [id number] 12:48:00* Test Item Value Reference Range Interpretation Comments WHITE BLOOD CELL (test code = WBC) 6.4 K/mm3 4.5-12.5 N RED BLOOD CELL (test code = RBC) 4.26 mill/mm3 3.7-5.2 N HEMOGLOBIN (test code = HGB) 12.4 gram/dL 11.5-15.5 N HEMATOCRIT (test code = HCT) 37.2 % 36.0-46.0 N MEAN CELL VOLUME (test code = MCV) 87.3 fL 80-98 N MEAN CELL HGB (test code = MCH) 29.1 picogram 27.0-33.0 N MEAN CELL HGB CONCETRATION (test code = MCHC) 33.3 gram/dL 33.0-36. 0 N RED CELL DISTRIBUTION WIDTH (test code = RDW) 13.6 % 11.6-16. 2 N PLATELET COUNT (test code = PLT) 255 K/mm3 150-450 N MEAN PLATELET VOLUME (test code = MPV) 9.0 fL 6.7-11.0 N CBC W/O [id number] 12:47:00* Test Item Value Reference Range Interpretation Comments WHITE BLOOD CELL (test code = WBC) K/mm3 4.5-12.5 RED BLOOD CELL (test code = RBC) mill/mm3 3.7-5.2 HEMOGLOBIN (test code = HGB) 12.4 gram/dL 11.5-15.5 N HEMATOCRIT (test code = HCT) 37.2 % 36.0-46.0 N MEAN CELL VOLUME (test code = MCV) fL 80-98 MEAN CELL HGB (test code = MCH) picogram 27.0-33.0 MEAN CELL HGB CONCETRATION (test code = MCHC) gram/dL 33.0-36. 0 RED CELL DISTRIBUTION WIDTH (test code = RDW) % 11.6-16. 2 PLATELET COUNT (test code = PLT) K/mm3 150-450 MEAN PLATELET VOLUME (test code = MPV) fL 6.7-11.0 URINALYSIS [id number] 10:35:00* Test Item Value Reference Range Interpretation Comments UA COLOR (test code = COLU) YELLOW YELLOW UA APPEARANCE (test code = APPU) Cloudy CLEAR A UA GLUCOSE DIPSTICK (test code = DGLUU) NEGATIVE mg/dL NEGATIVE UA BILIRUBIN DIPSTICK (test code = BILU) NEGATIVE mg/dL NEGATIVE UA KETONE DIPSTICK (test code = KETU) NEGATIVE mg/dL NEGATIVE UA SPECIFIC GRAVITY (test code = SGU) 1.014 1.001-1.035 UA BLOOD DIPSTICK (test code = MAT) Negative mg/dL NEGATIVE UA PH DIPSTICK (test code = CHARISMA) 6.5 5.0-8.0 UA PROTEIN DIPSTICK (test code = PROU) NEGATIVE mg/dL NEGATIVE UA UROBILINIOGEN DIPSTICK (test code = URO) Normal mg/dL NEGATIVE UA NITRITE DIPSTICK (test code = MANDI) NEGATIVE NEGATIVE UA LEUKOCYTE ESTERASE W REFLEX (test code = LEUUR) 25 Rah/uL (Trace) Rah/uL NEGATIVE A UA WBC (test code = WBCU) 11-20 per HPF 0-5 A UA RBC (test code = RBCU) 6-10 #/HPF 0-5 A UA EPITHELIAL CELLS (test code = EPIU) MANY per HPF FEW UA BACTERIA (test code = BACU) MANY #/HPF NONE A UA HYALINE CAST (test code = HYALU) 3-5 #/LPF 0-5 UA MUCUS (test code = MUCU) FEW #/LPF FEW UA AMORPHOUS SEDIMENT (test code = AMORU) MODERATE #/LPF NONE UA YEAST (test code = YEASTU) FEW #/HPF NONE Urine Source? Clean CatchURINALYSIS [id number] 10:33:00* Test Item Value Reference Range Interpretation Comments UA COLOR (test code = COLU) YELLOW YELLOW UA APPEARANCE (test code = APPU) Cloudy CLEAR A UA GLUCOSE DIPSTICK (test code = DGLUU) NEGATIVE mg/dL NEGATIVE UA BILIRUBIN DIPSTICK (test code = BILU) NEGATIVE mg/dL NEGATIVE UA KETONE DIPSTICK (test code = KETU) NEGATIVE mg/dL NEGATIVE UA SPECIFIC GRAVITY (test code = SGU) 1.014 1.001-1.035 UA BLOOD DIPSTICK (test code = MAT) Negative mg/dL NEGATIVE UA PH DIPSTICK (test code = CHARISMA) 6.5 5.0-8.0 UA PROTEIN DIPSTICK (test code = PROU) NEGATIVE mg/dL NEGATIVE UA UROBILINIOGEN DIPSTICK (test code = URO) Normal mg/dL NEGATIVE UA NITRITE DIPSTICK (test code = MANDI) NEGATIVE NEGATIVE UA LEUKOCYTE ESTERASE W REFLEX (test code = LEUUR) 25 Rah/uL (Trace) Rah/uL NEGATIVE A UA WBC (test code = WBCU) per HPF 0-5 UA RBC (test code = RBCU) per HPF 0-5 UA EPITHELIAL CELLS (test code = EPIU) per HPF Few UA BACTERIA (test code = BACU) per HPF NONE Urine Source? Clean Catch- XR CHEST 1 [id number] 09:26:00 FAX: Marino Abbott [phone] [place]: St: REG FAX: Chacho Aguilar DO Name: ANGELA ESPINOSA [facility] : 1975 Age/S: 43/F [address] Unit #: [id number] Loc: [facility] [place] [address] Phys: Chacho Aguilar DO Acct: [id number] Dis Date: Status: REG ER PHONE #: [phone] Exam Date: 01/25/2019 0856 FAX #: [phone] Reason: Abdominal Pain EXAMS: CPT CODE: [id number] XR CHEST 1 V [id number] REASON FOR EXAM: Abdominal Pain Exam Order Date: 01/25/2019 8:37 AM Ordering M.D.: Chacho Aguilar DO PROCEDURE: - XR CHEST 1 V COMPARISON: Frontal chest x-ray [facility] 2018 FINDINGS: There is mild subsegmental atelecta sis versus scarring in the lung bases. The lungs are otherwise clear. The re is no pleural effusion or pneumothorax. Pulmonary vascularity is within normal limits. Cardiomediastinal silhouette is normal in size for technique. The mediastinal contours are within normal limits. Musculoskeletal structures are within normal limits. Prior chol ecystectomy. IMPRESSION: The lungs are clear oth er than mild subsegmental atelectasis versus scarring in the lung bases. at 0987 Reported and signed by: Sanjay Roman MD CC: Vicente Bui MD; Chacho Aguilar DO Technologist: Alexa Templeton ([place]) [facility] Date/Time/By: 01/25/2019 (1033) : By: [email or web address] Orig Print D/T: S: 01/25/2019 (2969) PAGE 1 Signed Report BASIC METABOLIC [id number] 10:49:00* Test Item Value Reference Range Interpretation Comments SODIUM (test code = NA) 140 mmol/L 136-145 N POTASSIUM (test code = K) 4.0 mmol/L 3.5-5.1 N CHLORIDE (test code = CL) 107.0 mmol/L 98-107 N CARBON DIOXIDE (test code = CO2) 24.0 mmol/L 21-32 N ANION GAP (test code = GAP) 13.0 10-20 N GLUCOSE (test code = GLU) 102 mg/dL 74-106 N BLOOD UREA NITROGEN (test code = BUN) 16 mg/dL 7-18 N GLOMERULAR FILTRATION RATE (test code = GFR) 55 mL/min >=60 Estimated GFR by using Modified MDRD formula.Chronic kidney disease is defined as either kidney damageor GFR <60 mL/min/1.73 m2 for >3 months. CREATININE (test code = CREAT) 1.10 mg/dL 0.55-1.02 H Note change in reference range due to change in reagent. BUN/CREATININE RATIO (test code = BUN/CREA) 15.1 10-20 N CALCIUM (test code = CA) 9.3 mg/dL 8.5-10.1 N HEPATIC FUNCTION [id number] 10:49:00* Test Item Value Reference Range Interpretation Comments TOTAL PROTEIN (test code = PROT) 6.6 gram/dL 6.4-8.2 N ALBUMIN (test code = ALB) 3.4 g/dL 3.4-5.0 N GLOBULIN (test code = GLOB) 3.2 gram/dL 2.7-4.2 N ALBUMIN/GLOBULIN RATIO (test code = A/G) 1.1 0.75-1.50 N BILIRUBIN TOTAL (test code = BILT) 0.30 mg/dL 0.0-1.0 N BILIRUBIN DIRECT (test code = BILD) 0.08 mg/dL 0.0-0.20 N SGOT/AST (test code = AST) 19 IUnit/L 15-37 N SGPT/ALT (test code = ALT) 32 IUnit/L 12-78 N ALKALINE PHOSPHATASE TOTAL (test code = ALKP) 97 IUnit/L 45-117 N Note change in reference range due to change in reagent. [id number] 10:49:00* Test Item Value Reference Range Interpretation Comments LIPASE (test code = LIP) 161 U/L 73.0-393.0 N CBC W/O [id number] 10:24:00* Test Item Value Reference Range Interpretation Comments WHITE BLOOD CELL (test code = WBC) 6.9 K/mm3 4.5-12.5 N RED BLOOD CELL (test code = RBC) 4.30 mill/mm3 3.7-5.2 N HEMOGLOBIN (test code = HGB) 12.6 gram/dL 11.5-15.5 N HEMATOCRIT (test code = HCT) 37.3 % 36.0-46.0 N MEAN CELL VOLUME (test code = MCV) 86.7 fL 80-98 N MEAN CELL HGB (test code = MCH) 29.3 picogram 27.0-33.0 N MEAN CELL HGB CONCETRATION (test code = MCHC) 33.8 gram/dL 33.0-36. 0 N RED CELL DISTRIBUTION WIDTH (test code = RDW) 13.2 % 11.6-16. 2 N PLATELET COUNT (test code = PLT) 315 K/mm3 150-450 N MEAN PLATELET VOLUME (test code = MPV) 9.0 fL 6.7-11.0 N CBC W/O [id number] 10:23:00* Test Item Value Reference Range Interpretation Comments WHITE BLOOD CELL (test code = WBC) K/mm3 4.5-12.5 RED BLOOD CELL (test code = RBC) mill/mm3 3.7-5.2 HEMOGLOBIN (test code = HGB) 12.6 gram/dL 11.5-15.5 N HEMATOCRIT (test code = HCT) 37.3 % 36.0-46.0 N MEAN CELL VOLUME (test code = MCV) fL 80-98 MEAN CELL HGB (test code = MCH) picogram 27.0-33.0 MEAN CELL HGB CONCETRATION (test code = MCHC) gram/dL 33.0-36. 0 RED CELL DISTRIBUTION WIDTH (test code = RDW) % 11.6-16. 2 PLATELET COUNT (test code = PLT) K/mm3 150-450 MEAN PLATELET VOLUME (test code = MPV) fL 6.7-11.0 BASIC METABOLIC [id number] 09:02:00* Test Item Value Reference Range Interpretation Comments SODIUM (test code = NA) 143 mmol/L 136-145 N POTASSIUM (test code = K) 4.1 mmol/L 3.5-5.1 N CHLORIDE (test code = CL) 113.0 mmol/L 98-107 H CARBON DIOXIDE (test code = CO2) 22.0 mmol/L 21-32 N ANION GAP (test code = GAP) 12.1 10-20 N GLUCOSE (test code = GLU) 99 mg/dL 74-106 N BLOOD UREA NITROGEN (test code = BUN) 18 mg/dL 7-18 N GLOMERULAR FILTRATION RATE (test code = GFR) > 60 mL/min >=60 Estimated GFR by using Modified MDRD formula.Chronic kidney disease is defined as either kidney damageor GFR <60 mL/min/1.73 m2 for >3 months. CREATININE (test code = CREAT) 0.80 mg/dL 0.55-1.02 N Note change in reference range due to change in reagent. BUN/CREATININE RATIO (test code = BUN/CREA) 21.5 10-20 H CALCIUM (test code = CA) 8.8 mg/dL 8.5-10.1 N HEPATIC FUNCTION [id number] 09:02:00* Test Item Value Reference Range Interpretation Comments TOTAL PROTEIN (test code = PROT) 6.4 gram/dL 6.4-8.2 N ALBUMIN (test code = ALB) 3.1 g/dL 3.4-5.0 L GLOBULIN (test code = GLOB) 3.3 gram/dL 2.7-4.2 N ALBUMIN/GLOBULIN RATIO (test code = A/G) 0.9 0.75-1.50 N BILIRUBIN TOTAL (test code = BILT) 0.20 mg/dL 0.0-1.0 N BILIRUBIN DIRECT (test code = BILD) 0.06 mg/dL 0.0-0.20 N SGOT/AST (test code = AST) 13 IUnit/L 15-37 L SGPT/ALT (test code = ALT) 28 IUnit/L 12-78 N ALKALINE PHOSPHATASE TOTAL (test code = ALKP) 92 IUnit/L 45-117 N Note change in reference range due to change in reagent. [id number] 09:02:00* Test Item Value Reference Range Interpretation Comments LIPASE (test code = LIP) 196 U/L 73.0-393.0 N HCG SERUM [id number] 09:02:00* Test Item Value Reference Range Interpretation Comments HCG SERUM QUAL (test code = HCGQL) NEGATIVE NEGATIVE This HCGQL test is NOT applicable for MALE patients.Check with nurse about probable order error.If Tumor Marker Test needed, nurse should order test "HCGTU"(Test #550.65560) BASIC METABOLIC [id number] 09:00:00* Test Item Value Reference Range Interpretation Comments SODIUM (test code = NA) 143 mmol/L 136-145 N POTASSIUM (test code = K) 4.1 mmol/L 3.5-5.1 N CHLORIDE (test code = CL) 113.0 mmol/L 98-107 H CARBON DIOXIDE (test code = CO2) mmol/L 21-32 ANION GAP (test code = GAP) 10-20 GLUCOSE (test code = GLU) mg/dL 74-106 BLOOD UREA NITROGEN (test code = BUN) mg/dL 7-18 GLOMERULAR FILTRATION RATE (test code = GFR) mL/min >=60 CREATININE (test code = CREAT) mg/dL 0.55-1.02 BUN/CREATININE RATIO (test code = BUN/CREA) 10-20 CALCIUM (test code = CA) mg/dL 8.5-10.1 HEPATIC FUNCTION [id number] 09:00:00* Test Item Value Reference Range Interpretation Comments TOTAL PROTEIN (test code = PROT) gram/dL 6.4-8.2 ALBUMIN (test code = ALB) g/dL 3.4-5.0 GLOBULIN (test code = GLOB) gram/dL 2.7-4.2 ALBUMIN/GLOBULIN RATIO (test code = A/G) 0.75-1.50 BILIRUBIN TOTAL (test code = BILT) mg/dL 0.0-1.0 BILIRUBIN DIRECT (test code = BILD) mg/dL 0.0-0.20 SGOT/AST (test code = AST) IUnit/L 15-37 SGPT/ALT (test code = ALT) IUnit/L 12-78 ALKALINE PHOSPHATASE TOTAL (test code = ALKP) IUnit/L 45-117 [id number] 09:00:00* Test Item Value Reference Range Interpretation Comments LIPASE (test code = LIP) U/L 73.0-393.0 HCG SERUM [id number] 09:00:00* Test Item Value Reference Range Interpretation Comments HCG SERUM QUAL (test code = HCGQL) NEGATIVE NEGATIVE This HCGQL test is NOT applicable for MALE patients.Check with nurse about probable order error.If Tumor Marker Test needed, nurse should order test "HCGTU"(Test #550.31650) URINALYSIS [id number] 08:54:00* Test Item Value Reference Range Interpretation Comments UA COLOR (test code = COLU) COLORLESS YELLOW A UA APPEARANCE (test code = APPU) Cloudy CLEAR A UA GLUCOSE DIPSTICK (test code = DGLUU) NEGATIVE mg/dL NEGATIVE UA BILIRUBIN DIPSTICK (test code = BILU) NEGATIVE mg/dL NEGATIVE UA KETONE DIPSTICK (test code = KETU) NEGATIVE mg/dL NEGATIVE UA SPECIFIC GRAVITY (test code = SGU) 1.005 1.001-1.035 UA BLOOD DIPSTICK (test code = MAT) Negative mg/dL NEGATIVE UA PH DIPSTICK (test code = CHARISMA) 5.0 5.0-8.0 UA PROTEIN DIPSTICK (test code = PROU) NEGATIVE mg/dL NEGATIVE UA UROBILINIOGEN DIPSTICK (test code = URO) Normal mg/dL NEGATIVE UA NITRITE DIPSTICK (test code = MANDI) NEGATIVE NEGATIVE UA LEUKOCYTE ESTERASE W REFLEX (test code = LEUUR) NEGATIVE Rah/uL NEGATIVE UA WBC (test code = WBCU) 0-5 per HPF 0-5 UA RBC (test code = RBCU) 0-2 #/HPF 0-5 UA EPITHELIAL CELLS (test code = EPIU) MOD per HPF FEW UA BACTERIA (test code = BACU) MANY #/HPF NONE A Urine Source? Clean CatchBASIC METABOLIC [id number] 08:53:00* Test Item Value Reference Range Interpretation Comments SODIUM (test code = NA) 143 mmol/L 136-145 N POTASSIUM (test code = K) 4.1 mmol/L 3.5-5.1 N CHLORIDE (test code = CL) 113.0 mmol/L 98-107 H CARBON DIOXIDE (test code = CO2) mmol/L 21-32 ANION GAP (test code = GAP) 10-20 GLUCOSE (test code = GLU) mg/dL 74-106 BLOOD UREA NITROGEN (test code = BUN) mg/dL 7-18 GLOMERULAR FILTRATION RATE (test code = GFR) mL/min >=60 CREATININE (test code = CREAT) mg/dL 0.55-1.02 BUN/CREATININE RATIO (test code = BUN/CREA) 10-20 CALCIUM (test code = CA) mg/dL 8.5-10.1 HEPATIC FUNCTION [id number] 08:53:00* Test Item Value Reference Range Interpretation Comments TOTAL PROTEIN (test code = PROT) gram/dL 6.4-8.2 ALBUMIN (test code = ALB) g/dL 3.4-5.0 GLOBULIN (test code = GLOB) gram/dL 2.7-4.2 ALBUMIN/GLOBULIN RATIO (test code = A/G) 0.75-1.50 BILIRUBIN TOTAL (test code = BILT) mg/dL 0.0-1.0 BILIRUBIN DIRECT (test code = BILD) mg/dL 0.0-0.20 SGOT/AST (test code = AST) IUnit/L 15-37 SGPT/ALT (test code = ALT) IUnit/L 12-78 ALKALINE PHOSPHATASE TOTAL (test code = ALKP) IUnit/L 45-117 [id number] 08:53:00* Test Item Value Reference Range Interpretation Comments LIPASE (test code = LIP) U/L 73.0-393.0 HCG SERUM [id number] 08:53:00* Test Item Value Reference Range Interpretation Comments HCG SERUM QUAL (test code = HCGQL) NEGATIVE CBC W/O [id number] 08:46:00* Test Item Value Reference Range Interpretation Comments WHITE BLOOD CELL (test code = WBC) 7.1 K/mm3 4.5-12.5 N RED BLOOD CELL (test code = RBC) 4.20 mill/mm3 3.7-5.2 N HEMOGLOBIN (test code = HGB) 12.5 gram/dL 11.5-15.5 N HEMATOCRIT (test code = HCT) 36.9 % 36.0-46.0 N MEAN CELL VOLUME (test code = MCV) 87.9 fL 80-98 N MEAN CELL HGB (test code = MCH) 29.8 picogram 27.0-33.0 N MEAN CELL HGB CONCETRATION (test code = MCHC) 33.9 gram/dL 33.0-36. 0 N RED CELL DISTRIBUTION WIDTH (test code = RDW) 13.3 % 11.6-16. 2 N PLATELET COUNT (test code = PLT) 300 K/mm3 150-450 N MEAN PLATELET VOLUME (test code = MPV) 9.0 fL 6.7-11.0 N CBC W/O [id number] 08:45:00* Test Item Value Reference Range Interpretation Comments WHITE BLOOD CELL (test code = WBC) K/mm3 4.5-12.5 RED BLOOD CELL (test code = RBC) mill/mm3 3.7-5.2 HEMOGLOBIN (test code = HGB) 12.5 gram/dL 11.5-15.5 N HEMATOCRIT (test code = HCT) 36.9 % 36.0-46.0 N MEAN CELL VOLUME (test code = MCV) fL 80-98 MEAN CELL HGB (test code = MCH) picogram 27.0-33.0 MEAN CELL HGB CONCETRATION (test code = MCHC) gram/dL 33.0-36. 0 RED CELL DISTRIBUTION WIDTH (test code = RDW) % 11.6-16. 2 PLATELET COUNT (test code = PLT) K/mm3 150-450 MEAN PLATELET VOLUME (test code = MPV) fL 6.7-11.0 BASIC METABOLIC [id number] 08:16:00* Test Item Value Reference Range Interpretation Comments SODIUM (test code = NA) 141 mmol/L 134-147 N POTASSIUM (test code = K) 4.0 mmol/L 3.4-5.0 N CHLORIDE (test code = CL) 110 mmol/L 100-108 H CARBON DIOXIDE (test code = CO2) 22 mmol/L 21-32 N ANION GAP (test code = GAP) 9.0 GAP calc 4.0-15.0 N GLUCOSE (test code = GLU) 122 MG/DL 70-110 H BLOOD UREA NITROGEN (test code = BUN) 6 MG/DL 7-18 L GLOMERULAR FILTRATION RATE (test code = GFR) >=60 max estimate estG FR >60 CREATININE (test code = CREAT) 1.0 MG/DL 0.6-1.0 N CALCIUM (test code = CA) 9.4 MG/DL 8.5-10.1 N HEPATIC FUNCTION [id number] 08:16:00* Test Item Value Reference Range Interpretation Comments TOTAL PROTEIN (test code = PROT) 6.8 G/DL 6.4-8.2 N ALBUMIN (test code = ALB) 3.5 G/DL 3.4-5.0 N BILIRUBIN TOTAL (test code = BILT) 0.30 MG/DL 0.2-1.2 N BILIRUBIN DIRECT (test code = BILD) 0.10 MG/DL 0.00-0.30 N BILIRUBIN INDIRECT (test code = BILIND) 0.20 MG/DL 0.2-1.2 N SGOT/AST (test code = AST) 25 Unit/L 15-37 N SGPT/ALT (test code = ALT) 40 Unit/L 12-78 N ALKALINE PHOSPHATASE TOTAL (test code = ALKP) 96 Unit/L 45-117 N [id number] 08:16:00* Test Item Value Reference Range Interpretation Comments LIPASE (test code = LIP) 83 Unit/L 114-286 L BASIC METABOLIC [id number] 08:11:00* Test Item Value Reference Range Interpretation Comments SODIUM (test code = NA) 141 mmol/L 134-147 N POTASSIUM (test code = K) 4.0 mmol/L 3.4-5.0 N CHLORIDE (test code = CL) 110 mmol/L 100-108 H CARBON DIOXIDE (test code = CO2) 22 mmol/L 21-32 N ANION GAP (test code = GAP) 9.0 GAP calc 4.0-15.0 N GLUCOSE (test code = GLU) 122 MG/DL 70-110 H BLOOD UREA NITROGEN (test code = BUN) 6 MG/DL 7-18 L GLOMERULAR FILTRATION RATE (test code = GFR) estGFR >60 CREATININE (test code = CREAT) MG/DL 0.6-1.0 CALCIUM (test code = CA) 9.4 MG/DL 8.5-10.1 N HEPATIC FUNCTION [id number] 08:11:00* Test Item Value Reference Range Interpretation Comments TOTAL PROTEIN (test code = PROT) G/DL 6.4-8.2 ALBUMIN (test code = ALB) G/DL 3.4-5.0 BILIRUBIN TOTAL (test code = BILT) MG/DL 0.2-1.2 BILIRUBIN DIRECT (test code = BILD) MG/DL 0.00-0.30 BILIRUBIN INDIRECT (test code = BILIND) MG/DL 0.2-1.2 SGOT/AST (test code = AST) Unit/L 15-37 SGPT/ALT (test code = ALT) Unit/L 12-78 ALKALINE PHOSPHATASE TOTAL (test code = ALKP) Unit/L 45-117 [id number] 08:11:00* Test Item Value Reference Range Interpretation Comments LIPASE (test code = LIP) 83 Unit/L 114-286 L HCG [id number] 08:05:00* Test Item Value Reference Range Interpretation Comments HCG POC (test code = HCGPOC) <5 IU/L <5.0 N <5.0 IU/L NEGATIVE5.0 - 25.0 IU/L INDETERMINATE>25.0 POSITIVE Detection of low levels of hCG does not rule out .Because hCG values double approximately every 48 hours in anormal , patients with low levels of hCG should beresampled and retested after 48 hours UA RFLX MICR CULT IF [id number] 08:05:00* Test Item Value Reference Range Interpretation Comments UA COLOR (test code = COLU) YELLOW discript YEL/STRAW UA APPEARANCE (test code = APPU) CLEAR discript CLEAR UA GLUCOSE DIPSTICK (test code = DGLUU) NEGATIVE mg/dL NEG UA BILIRUBIN DIPSTICK (test code = BILU) NEGATIVE mg/dL NEG UA KETONE DIPSTICK (test code = KETU) NEGATIVE mg/dL NEG UA SPECIFIC GRAVITY (test code = SGU) 1.010 SG 1.005-1.030 UA BLOOD DIPSTICK (test code = MAT) NEGATIVE mg/DL NEG UA PH DIPSTICK (test code = CHARISMA) 7.5 pH UNITS 5.0-7.0 A UA PROTEIN DIPSTICK (test code = PROU) NEGATIVE mg/dL NEG UA UROBILINIOGEN DIPSTICK (test code = URO) 0.2 mg/dL <2.0 UA NITRITE DIPSTICK (test code = MANDI) NEGATIVE SCREEN NEG UA LEUKOCYTE ESTERASE DIPSTICK (test code = LEUU) NEGATIVE Leuk/mcL NEGATIVE UA CULTURE NEEDED? (test code = UACULT) Criteria Culture CHK SOURCE OF URINE: CLEAN CATCHIndication for culture: Dysuria/FrequencyUA RFLX MICR CULT IF [id number] 08:05:00* Test Item Value Reference Range Interpretation Comments UA COLOR (test code = COLU) YELLOW discript YEL/STRAW UA APPEARANCE (test code = APPU) CLEAR discript CLEAR UA GLUCOSE DIPSTICK (test code = DGLUU) NEGATIVE mg/dL NEG UA BILIRUBIN DIPSTICK (test code = BILU) NEGATIVE mg/dL NEG UA KETONE DIPSTICK (test code = KETU) NEGATIVE mg/dL NEG UA SPECIFIC GRAVITY (test code = SGU) 1.010 SG 1.005-1.030 UA BLOOD DIPSTICK (test code = MAT) NEGATIVE mg/DL NEG UA PH DIPSTICK (test code = CHARISMA) 7.5 pH UNITS 5.0-7.0 A UA PROTEIN DIPSTICK (test code = PROU) NEGATIVE mg/dL NEG UA UROBILINIOGEN DIPSTICK (test code = URO) 0.2 mg/dL <2.0 UA NITRITE DIPSTICK (test code = MANDI) NEGATIVE SCREEN NEG UA LEUKOCYTE ESTERASE DIPSTICK (test code = LEUU) NEGATIVE Leuk/mcL NEGATIVE UA CULTURE NEEDED? (test code = UACULT) NO, WBC<10 Criteria Culture CHK SOURCE OF URINE: CLEAN CATCHIndication for culture: Dysuria/FrequencyCBC W/AUTO [id number] 08:02:00* Test Item Value Reference Range Interpretation Comments WHITE BLOOD CELL (test code = WBC) 6.8 K/mm3 3.5-11.0 N RED BLOOD CELL (test code = RBC) 4.48 M/mm3 4.70-6.10 L HEMOGLOBIN (test code = HGB) 13.3 G/DL 10.4-14.9 N HEMATOCRIT (test code = HCT) 39.0 % 31.5-44.1 N MEAN CELL VOLUME (test code = MCV) 87.1 Fl 84.5-98.6 N MEAN CELL HGB (test code = MCH) 29.7 pg 27.0-34.2 N MEAN CELL HGB CONCETRATION (test code = MCHC) 34.1 G/DL 31.5-34. 0 H RED CELL DISTRIBUTION WIDTH (test code = RDW) 13.8 SD 11.5-14. 5 N PLATELET COUNT (test code = PLT) 250.0 K/mm3 150-450 N MEAN PLATELET VOLUME (test code = MPV) 8.80 fL 7.0-10.5 N NEUTROPHIL % (test code = NT%) 70.8 % 40-76 N LYMPHOCYTE % (test code = LY%) 22.1 % 20.5-51.1 N MONOCYTE % (test code = MO%) 5.2 % 1.7-9.3 N EOSINOPHIL % (test code = EO%) 1.6 % 0.0-6.0 N BASOPHIL % (test code = BA%) 0.3 % 0.0-2.0 N NEUTROPHIL # (test code = NT#) 4.81 K/mm3 1.8-7.6 N LYMPHOCYTE # (test code = LY#) 1.5 K/mm3 0.6-3.2 N MONOCYTE # (test code = MO#) 0.4 K/mm3 0.3-1.1 N EOSINOPHIL # (test code = EO#) 0.1 K/mm3 0.0-0.4 N BASOPHIL # (test code = BA#) 0.0 K/mm3 0.0-0.1 N MANUAL DIFF REQUIRED (test code = MDIFF) NO DIFF/SCN CRITERIA [id number] 16:54:00 RUN DATE: 12/29/18 [facility], [place], [facility] - LAB *LIVE* PAGE 1 RUN TIME: 1654 Specimen Inqui ry RUN USER: INTERFACE PATIENT: ANGELA ESPINOSA ACCT #: L [id number] LOC: [place] U #: [id number] AGE/SX: 43/F ROOM: [facility] RE12/26/18REG DR: Sammy Irene MD : 79 BED: 1 DIS: 12/28/18 STATUS: DIS IN TLOC: SPEC #: [id number] RECD: 12/28/18 [place] #: [id number] MICHELLE: 12/27/[address] [facility] [address]: Sammy Irnee MD ENTERED: 12/28/18 SP TYPE: SURG OTHR DR: No Marissa aura or Family Physician Self Referred Segun Felix MDORDERED: AB/PAS RANJAN, SURG PATH LVL /, PATH STAIN GROU COPIES TO: No Primary or Family [place] [id number] [address] [email or web address] Segun Alfonos MD [address] [address] HISTOLOGY: TISSUE ID BLK PCS MARIO LEV PROCEDURE DISPOSITION ____ __ ____ ___ ___ ___ DUODENUM, NOS A 1 2 STOMACH, NOS B 1 1 AB/PAS RANJAN STOMACH, NOS B 1 2 PATH STAIN GROU PROCEDURES: ALBLUE (12/28/18) PAS (12/28/18) SURG PATH LVL 4 (12/01) PATH STAIN GROU (12/28/18) TISSUES: A. DUOD ENUM, NOS - DUODENAL BIOPSY B. STOMACH, NOS - GASTRIC BIOPSY CLI NICAL HISTORY ACUTE PANCREATITIS JANICE UED ON NEXT PAGE RUN DATE: 12/29/18 [facility], [place], [facility] - LAB *LIVE* PAGE 2 RUN TIME: 1654 Specimen Inquiry RUN USER: INTERFACE SPEC #: [id number] LORI IFSHER: ANGELA ESPINOSA #[id number] (Continued) CPT CODES CPT CODE(S): 10648H5 , 57986 , 98665 , , , , FINAL DIAGNOSIS A. Stomach, duodenum, biopsy: DUODENUM WITH UNREMARKABLE VILLI B. Stomach, biopsy: MILD CHRONIC GASTRITIS NEGATIVE FOR INTESTINAL METAPLASIA, DYSPLASIA, OR MALIG SHINE NEGATIVE FOR HELICOBACTER PYLORI ORGANISMS GROSS DESCRIPTION A . Duodenal biopsy. Received in formalin are two glover tissue fragments, 0.2 an d 0.3 cm, all as A. B. Gastric biopsy. Received in formalin are four glover tissue fragments, 0.2 - 0.5 cm, all as B. ba/nr Grossing performed at [facility] Pathology, [address], [address], [place] [address]. Reproduction Machine Loader: Edd Hopkins M.D. MICROSCOPIC DESCRIPTION A. Duoden al biopsy. Sections demonstrate duodenum unremarkable villi. No evidence of v illous blunting or increased intraepithelial lymphocytes is seen. No features of a malabsorption syndrome are identified. B. Gastric biopsy. Sections demonstrate gastric mucosa with mild chronic inflammation. No dysplasia or ma lignancy is identified. Alcian blue/PAS confirms the absence of intestinal me taplasia. The Diff Quik stain demonstrates no evidence of Helicobacter pylori organisms. Signed SIGNATURE ON FILE Darren Shah 12/29/18 1654 END OF REPORT BASIC METABOLIC [id number] 04:41:00* Test Item Value Reference Range Interpretation Comments SODIUM (test code = NA) 140 mmol/L 134-147 N POTASSIUM (test code = K) 3.7 mmol/L 3.4-5.0 N CHLORIDE (test code = CL) 108 mmol/L 100-108 N CARBON DIOXIDE (test code = CO2) 26 mmol/L 21-32 N ANION GAP (test code = GAP) 6.0 GAP calc 4.0-15.0 N GLUCOSE (test code = GLU) 81 MG/DL 70-110 N BLOOD UREA NITROGEN (test code = BUN) 9 MG/DL 7-18 N GLOMERULAR FILTRATION RATE (test code = GFR) >=60 max estimate estG FR >60 CREATININE (test code = CREAT) 0.8 MG/DL 0.6-1.0 N CALCIUM (test code = CA) 8.2 MG/DL 8.5-10.1 L CBC W/AUTO [id number] 04:33:00* Test Item Value Reference Range Interpretation Comments WHITE BLOOD CELL (test code = WBC) 6.2 K/mm3 3.5-11.0 N RED BLOOD CELL (test code = RBC) 4.00 M/mm3 4.70-6.10 L HEMOGLOBIN (test code = HGB) 12.4 G/DL 10.4-14.9 N HEMATOCRIT (test code = HCT) 35.2 % 31.5-44.1 N MEAN CELL VOLUME (test code = MCV) 88.0 Fl 84.5-98.6 N MEAN CELL HGB (test code = MCH) 31.0 pg 27.0-34.2 N MEAN CELL HGB CONCETRATION (test code = MCHC) 35.2 G/DL 31.5-34. 0 H RED CELL DISTRIBUTION WIDTH (test code = RDW) 13.4 SD 11.5-14. 5 N PLATELET COUNT (test code = PLT) 226.0 K/mm3 150-450 N MEAN PLATELET VOLUME (test code = MPV) 9.10 fL 7.0-10.5 N NEUTROPHIL % (test code = NT%) 60.2 % 40-76 N LYMPHOCYTE % (test code = LY%) 30.0 % 20.5-51.1 N MONOCYTE % (test code = MO%) 7.5 % 1.7-9.3 N EOSINOPHIL % (test code = EO%) 1.8 % 0.0-6.0 N BASOPHIL % (test code = BA%) 0.5 % 0.0-2.0 N NEUTROPHIL # (test code = NT#) 3.72 K/mm3 1.8-7.6 N LYMPHOCYTE # (test code = LY#) 1.9 K/mm3 0.6-3.2 N MONOCYTE # (test code = MO#) 0.5 K/mm3 0.3-1.1 N EOSINOPHIL # (test code = EO#) 0.1 K/mm3 0.0-0.4 N BASOPHIL # (test code = BA#) 0.0 K/mm3 0.0-0.1 N MANUAL DIFF REQUIRED (test code = MDIFF) NO DIFF/SCN CRITERIA COMPREHENSIVE METABOLIC [id number] 05:28:00* Test Item Value Reference Range Interpretation Comments SODIUM (test code = NA) 141 mmol/L 134-147 N POTASSIUM (test code = K) 4.1 mmol/L 3.4-5.0 N CHLORIDE (test code = CL) 109 mmol/L 100-108 H CARBON DIOXIDE (test code = CO2) 27 mmol/L 21-32 N ANION GAP (test code = GAP) 5.0 GAP calc 4.0-15.0 N GLUCOSE (test code = GLU) 80 MG/DL 70-110 N BLOOD UREA NITROGEN (test code = BUN) 11 MG/DL 7-18 N GLOMERULAR FILTRATION RATE (test code = GFR) >=60 max estimate estG FR >60 CREATININE (test code = CREAT) 0.8 MG/DL 0.6-1.0 N TOTAL PROTEIN (test code = PROT) 5.6 G/DL 6.4-8.2 L ALBUMIN (test code = ALB) 2.7 G/DL 3.4-5.0 L GLOBULIN (test code = GLOB) 2.9 GM/dL ALBUMIN/GLOBULIN RATIO (test code = A/G) 0.9 RATIO 1.2-2.2 L CALCIUM (test code = CA) 7.8 MG/DL 8.5-10.1 L BILIRUBIN TOTAL (test code = BILT) 0.30 MG/DL 0.2-1.2 N SGOT/AST (test code = AST) 13 Unit/L 15-37 L SGPT/ALT (test code = ALT) 24 Unit/L 12-78 N ALKALINE PHOSPHATASE TOTAL (test code = ALKP) 77 Unit/L 45-117 N CBC W/AUTO [id number] 05:09:00* Test Item Value Reference Range Interpretation Comments WHITE BLOOD CELL (test code = WBC) 5.8 K/mm3 3.5-11.0 N RED BLOOD CELL (test code = RBC) 4.01 M/mm3 4.70-6.10 L HEMOGLOBIN (test code = HGB) 11.8 G/DL 10.4-14.9 N HEMATOCRIT (test code = HCT) 35.8 % 31.5-44.1 N MEAN CELL VOLUME (test code = MCV) 89.3 Fl 84.5-98.6 N MEAN CELL HGB (test code = MCH) 29.4 pg 27.0-34.2 N MEAN CELL HGB CONCETRATION (test code = MCHC) 33.0 G/DL 31.5-34. 0 N RED CELL DISTRIBUTION WIDTH (test code = RDW) 13.7 SD 11.5-14. 5 N PLATELET COUNT (test code = PLT) 227.0 K/mm3 150-450 N MEAN PLATELET VOLUME (test code = MPV) 9.10 fL 7.0-10.5 N NEUTROPHIL % (test code = NT%) 58.6 % 40-76 N LYMPHOCYTE % (test code = LY%) 29.3 % 20.5-51.1 N MONOCYTE % (test code = MO%) 9.2 % 1.7-9.3 N EOSINOPHIL % (test code = EO%) 2.4 % 0.0-6.0 N BASOPHIL % (test code = BA%) 0.5 % 0.0-2.0 N NEUTROPHIL # (test code = NT#) 3.42 K/mm3 1.8-7.6 N LYMPHOCYTE # (test code = LY#) 1.7 K/mm3 0.6-3.2 N MONOCYTE # (test code = MO#) 0.5 K/mm3 0.3-1.1 N EOSINOPHIL # (test code = EO#) 0.1 K/mm3 0.0-0.4 N BASOPHIL # (test code = BA#) 0.0 K/mm3 0.0-0.1 N MANUAL DIFF REQUIRED (test code = MDIFF) NO DIFF/SCN CRITERIA COMPREHENSIVE METABOLIC [id number] 07:45:00* Test Item Value Reference Range Interpretation Comments SODIUM (test code = NA) 142 mmol/L 134-147 N POTASSIUM (test code = K) 3.9 mmol/L 3.4-5.0 N CHLORIDE (test code = CL) 111 mmol/L 100-108 H CARBON DIOXIDE (test code = CO2) 25 mmol/L 21-32 N ANION GAP (test code = GAP) 6.0 GAP calc 4.0-15.0 N GLUCOSE (test code = GLU) 91 MG/DL 70-110 N BLOOD UREA NITROGEN (test code = BUN) 12 MG/DL 7-18 N GLOMERULAR FILTRATION RATE (test code = GFR) >=60 max estimate estG FR >60 CREATININE (test code = CREAT) 0.8 MG/DL 0.6-1.0 N TOTAL PROTEIN (test code = PROT) 5.4 G/DL 6.4-8.2 L ALBUMIN (test code = ALB) 2.7 G/DL 3.4-5.0 L GLOBULIN (test code = GLOB) 2.7 GM/dL ALBUMIN/GLOBULIN RATIO (test code = A/G) 1.0 RATIO 1.2-2.2 L CALCIUM (test code = CA) 7.7 MG/DL 8.5-10.1 L BILIRUBIN TOTAL (test code = BILT) 0.20 MG/DL 0.2-1.2 N SGOT/AST (test code = AST) 13 Unit/L 15-37 L SGPT/ALT (test code = ALT) 26 Unit/L 12-78 N ALKALINE PHOSPHATASE TOTAL (test code = ALKP) 80 Unit/L 45-117 N [id number] 07:45:00* Test Item Value Reference Range Interpretation Comments LIPASE (test code = LIP) 93 Unit/L 114-286 L CBC W/AUTO [id number] 07:29:00* Test Item Value Reference Range Interpretation Comments WHITE BLOOD CELL (test code = WBC) 5.7 K/mm3 3.5-11.0 N RED BLOOD CELL (test code = RBC) 4.24 M/mm3 4.70-6.10 L HEMOGLOBIN (test code = HGB) 12.5 G/DL 10.4-14.9 N HEMATOCRIT (test code = HCT) 37.8 % 31.5-44.1 N MEAN CELL VOLUME (test code = MCV) 89.2 Fl 84.5-98.6 N MEAN CELL HGB (test code = MCH) 29.5 pg 27.0-34.2 N MEAN CELL HGB CONCETRATION (test code = MCHC) 33.1 G/DL 31.5-34. 0 N RED CELL DISTRIBUTION WIDTH (test code = RDW) 13.9 SD 11.5-14. 5 N PLATELET COUNT (test code = PLT) 237.0 K/mm3 150-450 N MEAN PLATELET VOLUME (test code = MPV) 9.00 fL 7.0-10.5 N NEUTROPHIL % (test code = NT%) 60.9 % 40-76 N LYMPHOCYTE % (test code = LY%) 29.9 % 20.5-51.1 N MONOCYTE % (test code = MO%) 6.7 % 1.7-9.3 N EOSINOPHIL % (test code = EO%) 2.1 % 0.0-6.0 N BASOPHIL % (test code = BA%) 0.4 % 0.0-2.0 N NEUTROPHIL # (test code = NT#) 3.48 K/mm3 1.8-7.6 N LYMPHOCYTE # (test code = LY#) 1.7 K/mm3 0.6-3.2 N MONOCYTE # (test code = MO#) 0.4 K/mm3 0.3-1.1 N EOSINOPHIL # (test code = EO#) 0.1 K/mm3 0.0-0.4 N BASOPHIL # (test code = BA#) 0.0 K/mm3 0.0-0.1 N MANUAL DIFF REQUIRED (test code = MDIFF) NO DIFF/SCN CRITERIA GLYCOSYLATED HEMOGLOBIN [id number] 13:11:00* Test Item Value Reference Range Interpretation Comments GLYCOSYLATED HEMOGLOBIN (HA1C) (test code = GLYHGB) 5.4 % A1C 4. 2-6.3 N ESTIMATED AVERAGE GLUCOSE (test code = EAG) 108 MG/DLest COMPREHENSIVE METABOLIC [id number] 13:06:00* Test Item Value Reference Range Interpretation Comments SODIUM (test code = NA) 139 mmol/L 134-147 N POTASSIUM (test code = K) 4.2 mmol/L 3.4-5.0 N CHLORIDE (test code = CL) 108 mmol/L 100-108 N CARBON DIOXIDE (test code = CO2) 25 mmol/L 21-32 N ANION GAP (test code = GAP) 6.0 GAP calc 4.0-15.0 N GLUCOSE (test code = GLU) 80 MG/DL 70-110 N BLOOD UREA NITROGEN (test code = BUN) 11 MG/DL 7-18 N GLOMERULAR FILTRATION RATE (test code = GFR) >=60 max estimate estG FR >60 CREATININE (test code = CREAT) 0.8 MG/DL 0.6-1.0 N TOTAL PROTEIN (test code = PROT) 6.4 G/DL 6.4-8.2 N ALBUMIN (test code = ALB) 3.2 G/DL 3.4-5.0 L GLOBULIN (test code = GLOB) 3.2 GM/dL ALBUMIN/GLOBULIN RATIO (test code = A/G) 1.0 RATIO 1.2-2.2 L CALCIUM (test code = CA) 8.5 MG/DL 8.5-10.1 N BILIRUBIN TOTAL (test code = BILT) 0.20 MG/DL 0.2-1.2 N SGOT/AST (test code = AST) 17 Unit/L 15-37 N SGPT/ALT (test code = ALT) 32 Unit/L 12-78 N ALKALINE PHOSPHATASE TOTAL (test code = ALKP) 94 Unit/L 45-117 N LIPID PROFILE (CORONARY RISK)2018-12-25 13:06:00* Test Item Value Reference Range Interpretation Comments TRIGLYCERIDES (test code = TRIG) 189 MG/DL 0-150 H CHOLESTEROL (test code = CHOL) 203 MG/DL 133-200 H CHOLESTEROL/HDL RATIO (test code = CHOLHDL) 4.06 RATIO >0 HDL CHOLESTEROL (test code = HDL) 50 MG/DL 40-59 N NON-HDL CHOLESTEROL (test code = NHDL) 153 mg/dL <130 H LIPOPROTEIN LDL (test code = LDL) 137 MG/DL 0-129 H LDL/HDL (test code = LDL/HDL) 2.74 Ratio 1.48-3.22 Avg N [id number] 13:06:00* Test Item Value Reference Range Interpretation Comments PHOSPHOROUS (test code = PHOS) 3.6 MG/DL 2.5-4.9 N [id number] 13:06:00* Test Item Value Reference Range Interpretation Comments LIPASE (test code = LIP) 160 Unit/L 114-286 N [id number] 13:06:00* Test Item Value Reference Range Interpretation Comments MAGNESIUM (test code = MAG) 1.7 MG/DL 1.8-2.4 L CBC W/AUTO [id number] 12:54:00* Test Item Value Reference Range Interpretation Comments WHITE BLOOD CELL (test code = WBC) 6.2 K/mm3 3.5-11.0 N RED BLOOD CELL (test code = RBC) 4.39 M/mm3 4.70-6.10 L HEMOGLOBIN (test code = HGB) 13.0 G/DL 10.4-14.9 N HEMATOCRIT (test code = HCT) 38.9 % 31.5-44.1 N MEAN CELL VOLUME (test code = MCV) 88.6 Fl 84.5-98.6 N MEAN CELL HGB (test code = MCH) 29.6 pg 27.0-34.2 N MEAN CELL HGB CONCETRATION (test code = MCHC) 33.4 G/DL 31.5-34. 0 N RED CELL DISTRIBUTION WIDTH (test code = RDW) 14.0 SD 11.5-14. 5 N PLATELET COUNT (test code = PLT) 259.0 K/mm3 150-450 N MEAN PLATELET VOLUME (test code = MPV) 9.00 fL 7.0-10.5 N NEUTROPHIL % (test code = NT%) 58.7 % 40-76 N LYMPHOCYTE % (test code = LY%) 32.9 % 20.5-51.1 N MONOCYTE % (test code = MO%) 6.3 % 1.7-9.3 N EOSINOPHIL % (test code = EO%) 1.6 % 0.0-6.0 N BASOPHIL % (test code = BA%) 0.5 % 0.0-2.0 N NEUTROPHIL # (test code = NT#) 3.66 K/mm3 1.8-7.6 N LYMPHOCYTE # (test code = LY#) 2.1 K/mm3 0.6-3.2 N MONOCYTE # (test code = MO#) 0.4 K/mm3 0.3-1.1 N EOSINOPHIL # (test code = EO#) 0.1 K/mm3 0.0-0.4 N BASOPHIL # (test code = BA#) 0.0 K/mm3 0.0-0.1 N MANUAL DIFF REQUIRED (test code = MDIFF) NO DIFF/SCN CRITERIA - CT ABD PELVIS [id number] 09:17:00 Patient Name: ANGELA ESPINOSA Unit No: [id number] EXAMS: CPT CODE: [id number] CT ABD PELVIS W/CONT 26007 CT OF THE ABDOMEN AND PELVIS PERFORMED December 25, 2018 0840 hours . CLINICAL HISTORY: 42-year-old female Acute pancreatitis . COMPARISON: December 08, 2018 . TECHNIQUE: 5 mm helical images through the abdomen and pelvis with IV contrast. One or more of the following dose techniques were utilized; automated exposure control, adjustment of the mA and/or kV according to patient size, and/or utilization of iterative reconstruction technique. DLP: 1247 mGy-cm. DISCUSSION: Lung bases are clear. Great vessels and osseous structures are within normal limits. The biliary tree, spleen, pancreas, bilateral adrenals, and right kidney are within normal limits. The gallbladder is surgically absent. Small nonobstructing left calyceal renal calculi. Too Small to characterize subcentimeter hypode nsity seen in the midpole of the left kidney, probable cyst. This appears unch anged from January 2016. There is diffuse fatty infiltration of the liver without focal mass. No adenopathy or free fluid is seen in the abdomen or p lena. Postsurgical changes are seen in the anterior abdominal wall, compatib le with prior hernia repair with mesh. The uterus is surgically absent. 2.5 cm low-density cystic structure seen in the right adnexa, probable right ovari an cyst. Left ovary and uterus are not visualized. Urinary bladder is distend ed.. Please note patient has had multiple CTs (at least 43 since April 02). Advise clinical correlation and consultation as clinically warranted. Marianne Candelario should always be followed. IMPRESSION: 1. 2.5 c m low-density lesion seen in the right ovary, probable cyst. Follow-up pelvi c ultrasound may be helpful. 2. Prominence of the urinary bladder [facility] NAME: ANGELA ESPINOSA Radiolo gy Department PHYS: Freddy Gandhi [address] : 1975 AGE: 43 SEX: F [place] [phone] LOC: F.ERS PHONE #: [phone] EXAM DATE: 12/25/2018 STATUS: [facility] ER FAX #: [phone] RAD NO: Page 1 Signed Report 1 Patient Name: ANGELA ESPINOSA Unit No: [id number] EXAMS: CPT CODE: [id number] CT ABD PELVIS W/CONT 99303 <Continued> 3. Status post cholecystectomy, hysterectomy and abdominal wall hernia repair with mesh 4. Subcentimeter nonobstructing left calyceal renal stone 5. Fatty infiltration of the liver. Please note patient has had multiple CTs (at least 43 since April 2008). Advise clinical correlation and consultation as clinically warranted. Principles of ALARA should always be followed. at 0917 Reported and signed by: Cheryl Pryor MD CC: Freddy Lee MD; Vicente Quispe MD Technologist: Jarek Reed, RT CTDI: 21.55 DLP: 1247.13 Trnscrbd D/ (0917) tFIONANMG [facility] NAME: ISMAEL ESPINOSALICA Radiology Department PHYS: Freddy Gandhi [address] : 1975 AGE: 43 SEX: F [place] [phone] LOC: .ERS PHONE #: [phone] EXAM DATE: 12/25/2018 STATUS: [facility] ER FAX #: [phone] RAD NO: Page 2 Signed Report 1 Patient Name: ANGELA ESPINOSA Unit No: [id number] EXAMS: CPT CODE: [id number] CT ABD PELVIS W/CONT 81468 <Continued> Orig Print D/T: S: 12/25/2018 (0921) [facility] NAME: ANGELA ESPINOSA Radiology Department PHYS: Freddy Gandhi [address] : 1975 AGE: 43 SEX: F [place] [address] LOC: F.ERS PHONE #: [phone] EXAM DATE: 12/25/2018 STATUS: [facility] ER FAX #: [phone] RAD NO: Page 3 Signed Report 1 LIPID PROFILE (CORONARY RISK)2018-12-25 08:24:00* Test Item Value Reference Range Interpretation Comments TRIGLYCERIDES (test code = TRIG) 219 mg/dL H Normal < 150 Borderline high 150 - 199 High 200 - 499 Very High > 500 CHOLESTEROL (test code = CHOL) 212 mg/dL 120-200 H HDL CHOLESTEROL (test code = HDL) 48 mg/dL HDL <40 = Low HDL Cholesterolhdl >60 = High HDL CholesterolSource: NCEP-ATPIII LIPOPROTEIN LDL (test code = LDL) 121 mg/dL <130 (DESIRABLE) 130-159 (BORDERLINE) >=160 (HIGH) COMPREHENSIVE METABOLIC [id number] 07:10:00* Test Item Value Reference Range Interpretation Comments SODIUM (test code = NA) 140 mEq/L 135-145 N POTASSIUM (test code = K) 3.9 mEq/L 3.5-5.0 N CHLORIDE (test code = CL) 105 mEq/L 100-115 N CARBON DIOXIDE (test code = CO2) 25 mEq/L 22-31 N ANION GAP (test code = GAP) 14.20 10-20 N GLUCOSE (test code = GLU) 114 mg/dL 65-110 H BLOOD UREA NITROGEN (test code = BUN) 15 mg/dL 7-18 N GLOMERULAR FILTRATION RATE (test code = GFR) 69 ml/min >60 N CREATININE (test code = CREAT) 0.9 mg/dL 0.5-1.0 N TOTAL PROTEIN (test code = PROT) 6.6 gm/dL 6.3-8.2 N ALBUMIN (test code = ALB) 3.3 gm/dL 3.4-4.8 L CALCIUM (test code = CA) 9.1 mg/dL 8.4-10.2 N BILIRUBIN TOTAL (test code = BILT) 0.2 mg/dL 0.2-1.0 N SGOT/AST (test code = AST) 17 units/L 15-37 N SGPT/ALT (test code = ALT) 35 units/L 12-78 N ALKALINE PHOSPHATASE TOTAL (test code = ALKP) 96 units/L 46-116 N [id number] 07:10:00* Test Item Value Reference Range Interpretation Comments AMYLASE (test code = JANIE) 137 units/L 30-110 H [id number] 07:10:00* Test Item Value Reference Range Interpretation Comments LIPASE (test code = LIP) 1154 units/L 73-393 H UA RFLX MICR CULT IF [id number] 06:32:00* Test Item Value Reference Range Interpretation Comments UA COLOR (test code = COLU) YELLOW YELLOW UA APPEARANCE (test code = APPU) Slightly-Cloudy CLEAR UA GLUCOSE DIPSTICK (test code = DGLUU) NEGATIVE NEG UA BILIRUBIN DIPSTICK (test code = BILU) NEGATIVE NEG UA KETONE DIPSTICK (test code = KETU) NEGATIVE NEG UA SPECIFIC GRAVITY (test code = SGU) 1.009 1.001-1.035 N UA BLOOD DIPSTICK (test code = MAT) NEG NEG UA PH DIPSTICK (test code = CHARISMA) 5.0 5-9 UA PROTEIN DIPSTICK (test code = PROU) NEGATIVE NEG UA UROBILINIOGEN DIPSTICK (test code = URO) NEGATIVE mg/dL NEG UA NITRITE DIPSTICK (test code = MANDI) NEG NEG UA LEUKOCYTE ESTERASE DIPSTICK (test code = LEUU) NEG NEG UA WBC (test code = WBCU) 3-5 #/hpf NONE SEEN A UA RBC (test code = RBCU) 0-2 #/hpf NONE SEEN UA EPITHELIAL CELLS (test code = EPIU) FEW #/HPF RARE-FEW UA BACTERIA (test code = BACU) MODERATE #/hpf NONE SEEN A UA MUCUS (test code = MUCU) RARE NONE SEEN Indication for culture: Suprapubic PainUR HCG [id number] 06:32:00* Test Item Value Reference Range Interpretation Comments UR HCG QUAL (test code = HCGQLU) NEGATIVE 1. Very dilute urine specimens, as indicated by a lowspecific gravity, may not contain group sales representative levels ofhCG. 2. False negative results may occur when the levels of hCGare below the sensitivity level of the test. If is still suspected, a first morningurine specimen should be collected 48 hours later andtested. Indication for culture: Suprapubic PainCBC W/AUTO [id number] 06:28:00* Test Item Value Reference Range Interpretation Comments WHITE BLOOD CELL (test code = WBC) 7.2 K/mm3 6.6-12.1 N RED BLOOD CELL (test code = RBC) 4.40 M/mm3 3.45-5.01 N HEMOGLOBIN (test code = HGB) 13.1 g/dL 10.7-13.9 N HEMATOCRIT (test code = HCT) 39.6 % 32.1-42.1 N MEAN CELL VOLUME (test code = MCV) 90 fL 84.1-94.8 N MEAN CELL HGB (test code = MCH) 29.8 pg 27-35 N MEAN CELL HGB CONCETRATION (test code = MCHC) 33.1 gm/dL 32.2-34. 1 N RED CELL DISTRIBUTION WIDTH (test code = RDW) 13.4 % 12.4-16. 5 N PLATELET COUNT (test code = PLT) 255 K/mm3 133-385 N IMMATURE PLATELET FRACTION (test code = IPF) 0.0 % 0.0-10.8 N MEAN PLATELET VOLUME (test code = MPV) 9.4 fl 9.1-12.7 N NEUTROPHIL % (test code = NT%) 62.2 % 56.5-79.4 N LYMPHOCYTE % (test code = LY%) 28.0 % 14.3-34.3 N MONOCYTE % (test code = MO%) 7.0 % 5.1-10.4 N EOSINOPHIL % (test code = EO%) 1.8 % 0.1-3.0 N BASOPHIL % (test code = BA%) 0.6 % 0.1-1.0 N NEUTROPHIL # (test code = NT#) 4.5 K/mm3 LYMPHOCYTE # (test code = LY#) 2.0 K/mm3 MONOCYTE # (test code = MO#) 0.5 K/mm3 EOSINOPHIL # (test code = EO#) 0.13 K/mm3 BASOPHIL # (test code = BA#) 0.0 K/mm3 RBC MORPHOLOGY REQUIRED (test code = RBCM) NORMAL NORMAL PLATELET MORPHOLOGY REQUIRED (test code = PLTMR) NORMAL YOANA L DRUGS OF ABUSE [id number] 06:28:00* Test Item Value Reference Range Interpretation Comments UR COCAINE (test code = COCAU) NEGATIVE NEGATIVE DETECTION CUT OFF: 150 ng/mL UR CANNABINOIDS (test code = CANU) POSITIVE NEGATIVE A RESULTS CALLED TO WILMA NurREAD BACK & CONFIRMED? Y.BY F.LAB. 12/25/18626. DETECTION CUT OFF: 50 ng/mL UR AMPHETAMINE (test code = AMPHU) NEGATIVE NEGATIVE DETECTION CUT OFF: 500 ng/mL UR BARBITURATE QUAL (test code = BARBQLU) NEGATIVE NEGATIVE DETECTION CUT OFF: 200 ng/mL UR BENZODIAZEPINE (test code = BENZU) POSITIVE NEGATIVE A RESULTS CALLED TO WILMA NurREAD BACK & CONFIRMED? Y.BY F.LAB. 12/25/18626. DETECTION CUT OFF: 150 ng/mL UR OPIATES QUAL (test code = OPIAQLU) NEGATIVE NEGATIVE DETECTION CUT OFF: 100 ng/mL UR PHENCYCLIDINE (PCP) (test code = PHENCU) NEGATIVE NEGATIVE DETECTION CUT OFF: 25 ng/mL UA RFLX MICR CULT IF [id number] 06:16:00* Test Item Value Reference Range Interpretation Comments UA COLOR (test code = COLU) YELLOW UA APPEARANCE (test code = APPU) CLEAR UA GLUCOSE DIPSTICK (test code = DGLUU) NEGATIVE UA BILIRUBIN DIPSTICK (test code = BILU) NEGATIVE UA KETONE DIPSTICK (test code = KETU) NEGATIVE UA SPECIFIC GRAVITY (test code = SGU) 1.001-1.035 UA BLOOD DIPSTICK (test code = MAT) NEGATIVE UA PH DIPSTICK (test code = CHARISMA) 5-9 UA PROTEIN DIPSTICK (test code = PROU) NEGATIVE UA UROBILINIOGEN DIPSTICK (test code = URO) mg/dL NEG UA NITRITE DIPSTICK (test code = MANDI) NEGATIVE UA LEUKOCYTE ESTERASE DIPSTICK (test code = LEUU) NEG UA WBC (test code = WBCU) #/hpf NONE SEEN UA EPITHELIAL CELLS (test code = EPIU) #/HPF RARE-FEW Indication for culture: Suprapubic PainUR HCG [id number] 06:16:00* Test Item Value Reference Range Interpretation Comments UR HCG QUAL (test code = HCGQLU) NEGATIVE 1. Very dilute urine specimens, as indicated by a lowspecific gravity, may not contain group sales representative levels ofhCG. 2. False negative results may occur when the levels of hCGare below the sensitivity level of the test. If is still suspected, a first morningurine specimen should be collected 48 hours later andtested. Indication for culture: Suprapubic Pain- CT ABD PELVIS W/O [id number] 09:33:00 Name: ANGELA ESPINOSA [facility] : 1975 Age/S: 43 / F [place] [facility] Unit #: [id number] Loc: [facility] [place] [address] Phys: Hesham Acuña MD Acct: [id number] Dis Date: Status: REG ER PHONE #: [phone] Exam Date: 12/08/2018 0902 FAX #: [phone] Reason: right abdominal pain, recent procedure EXAMS: CPT CODE: [id number] CT ABD PELVIS W/O CONT 32165 TECHNIQUE: - CT ABD PELVIS W/O CONT . This exam was performed using one or more of the following dose reduction techniques: Automated exposure control, adjustment of the mA and/ or kV according to patient size or use of iterative reconstruction technique. COMPARISON: CT abdomen and pelvis 11/07/2018 HISTORY: 43 years Female right abdominal pain, recent procedure FINDINGS: CT ABDOMEN: Included lung bases and visualized lower mediastinum: No significant abnormalities in included lung bases. No significant abnormality in the visualized lower mediastinum. Liver: Fatty liver. No focal lesions. Gallbladder and biliary ducts: Cholecystectomy. No intra-or extrahepatic biliary ductal dilatation. Spleen: Normal in size and density. No focal lesions. Adrenals: No adrenal nodules or enlargement. Pancreas: No focal lesion, calcifications, pancreatic duct dilatation, or peripancreatic fluid collections. Right kidney: Normal in position and size. No hydronephrosis. No focal lesions. 1 mm right renal pelvic stone. Left kidney: Normal in position and size. No hydronephrosis. Scarring mid pole left kidney. 5 mm hypodensity mid pole left kidney too small to characterize. 2 mm left renal pelvic stone. GI structures: No small or large bowel dilatation. No small or large bowel wall thickening. PAGE 1 Signed Report (CONTINUED) Name: ANGELA ESPINOSA [facility] : 1975 Age/S: 43 / F [facility] Unit #: [id number] Loc: [place] [place] [address] Phys: Hesham Acuña MD Acct: [id number] Dis Date: Status: REG ER PHONE #: [phone] Exam Date: 12/08/2018 0902 FAX #: [phone] Reason: right abdominal pain, recent procedure EXAMS: CPT CODE: [id number] CT ABD PELVIS W/O CONT 53759 <Continued> Retroperitoneum and mesentery: No significant lymphadenopathy. No free fluid. No free air. No mesenteric abnormalities. No retroperitoneal abnormality. Abdominal wall: No abdominal wall hernia. Vascular structures: Age appropriate. No aneurysm. Osseous structures: Age appropriate. Soft tissues and musculoskeletal structures: No significant findings. CT PELVIS: The urinary bladder is partially distended and appears unremarkable from this exam. No abnormalities in pelvic viscera. No significant lymphadenopathy. No free fluid. No inflammatory changes. No inguinal abnormalities. IMPRESSION: Fatty liver. Cholecystectomy. Tiny bilateral renal pelvic stones. Appendix normal. at 0933 Reported and signed by: Jarek Gold M.D. CC: Hesham Acuña MD; Vicente Bui MD Tech nologist:Elayne ForrestRT(R),CT; Cuca CTDI: DLP: Trnscb Date/Ti me: 12/08/2018 (0933) Serjio PAGE 2 Signed Report BASIC METABOLIC PANEL 2018-12-08 09:27:00* Test Item Value Reference Range Interpretation Comments SODIUM (test code = NA) 139 mmol/L 136-145 N POTASSIUM (test code = K) 4.1 mmol/L 3.5-5.1 N CHLORIDE (test code = CL) 109.0 mmol/L 98-107 H CARBON DIOXIDE (test code = CO2) 24.0 mmol/L 21-32 N ANION GAP (test code = GAP) 10.1 10-20 N GLUCOSE (test code = GLU) 93 mg/dL 74-106 N BLOOD UREA NITROGEN (test code = BUN) 13 mg/dL 7-18 N GLOMERULAR FILTRATION RATE (test code = GFR) > 60 mL/min >=60 Estimated GFR by using Modified MDRD formula.Chronic kidney disease is defined as either kidney damageor GFR <60 mL/min/1.73 m2 for >3 months. CREATININE (test code = CREAT) 0.90 mg/dL 0.55-1.02 N Note change in reference range due to change in reagent. BUN/CREATININE RATIO (test code = BUN/CREA) 13.8 10-20 N CALCIUM (test code = CA) 9.8 mg/dL 8.5-10.1 N HEPATIC FUNCTION [id number] 09:27:00* Test Item Value Reference Range Interpretation Comments TOTAL PROTEIN (test code = PROT) 6.8 gram/dL 6.4-8.2 N ALBUMIN (test code = ALB) 3.5 g/dL 3.4-5.0 N GLOBULIN (test code = GLOB) 3.3 gram/dL 2.7-4.2 N ALBUMIN/GLOBULIN RATIO (test code = A/G) 1.1 0.75-1.50 N BILIRUBIN TOTAL (test code = BILT) 0.20 mg/dL 0.0-1.0 N BILIRUBIN DIRECT (test code = BILD) 0.07 mg/dL 0.0-0.20 N SGOT/AST (test code = AST) 16 IUnit/L 15-37 N SGPT/ALT (test code = ALT) 28 IUnit/L 12-78 N ALKALINE PHOSPHATASE TOTAL (test code = ALKP) 100 IUnit/L 45-117 N Note change in reference range due to change in reagent. [id number] 09:27:00* Test Item Value Reference Range Interpretation Comments LIPASE (test code = LIP) 187 U/L 73.0-393.0 N BASIC METABOLIC [id number] 09:08:00* Test Item Value Reference Range Interpretation Comments SODIUM (test code = NA) 139 mmol/L 136-145 N POTASSIUM (test code = K) 4.1 mmol/L 3.5-5.1 N CHLORIDE (test code = CL) 109.0 mmol/L 98-107 H CARBON DIOXIDE (test code = CO2) mmol/L 21-32 ANION GAP (test code = GAP) 10-20 GLUCOSE (test code = GLU) mg/dL 74-106 BLOOD UREA NITROGEN (test code = BUN) mg/dL 7-18 GLOMERULAR FILTRATION RATE (test code = GFR) mL/min >=60 CREATININE (test code = CREAT) mg/dL 0.55-1.02 BUN/CREATININE RATIO (test code = BUN/CREA) 10-20 CALCIUM (test code = CA) mg/dL 8.5-10.1 HEPATIC FUNCTION [id number] 09:08:00* Test Item Value Reference Range Interpretation Comments TOTAL PROTEIN (test code = PROT) gram/dL 6.4-8.2 ALBUMIN (test code = ALB) g/dL 3.4-5.0 GLOBULIN (test code = GLOB) gram/dL 2.7-4.2 ALBUMIN/GLOBULIN RATIO (test code = A/G) 0.75-1.50 BILIRUBIN TOTAL (test code = BILT) mg/dL 0.0-1.0 BILIRUBIN DIRECT (test code = BILD) mg/dL 0.0-0.20 SGOT/AST (test code = AST) IUnit/L 15-37 SGPT/ALT (test code = ALT) IUnit/L 12-78 ALKALINE PHOSPHATASE TOTAL (test code = ALKP) IUnit/L 45-117 [id number] 09:08:00* Test Item Value Reference Range Interpretation Comments LIPASE (test code = LIP) U/L 73.0-393.0 URINALYSIS [id number] 08:54:00* Test Item Value Reference Range Interpretation Comments UA COLOR (test code = COLU) YELLOW UA APPEARANCE (test code = APPU) CLEAR UA BILIRUBIN DIPSTICK (test code = BILU) NEGATIVE UA SPECIFIC GRAVITY (test code = SGU) 1.001-1.035 UA PH DIPSTICK (test code = CHARISMA) 5.0-8.0 UA UROBILINIOGEN DIPSTICK (test code = URO) mg/dL 0.0-0.2 UA NITRITE DIPSTICK (test code = MANDI) NEGATIVE UA LEUKOCYTE ESTERASE W REFLEX (test code = LEUUR) NEG ATIVE UA WBC (test code = WBCU) per HPF 0-5 UA RBC (test code = RBCU) per HPF 0-5 UA EPITHELIAL CELLS (test code = EPIU) per HPF Few UA BACTERIA (test code = BACU) per HPF NONE Urine Source? Clean CatchUR HCG [id number] 08:54:00* Test Item Value Reference Range Interpretation Comments UR HCG QUAL (test code = HCGQLU) NEGATIVE This HCGQL test is NOT applicable for MALE patients.Check with nurse about probable order error.If Tumor Marker Test needed, nurse should order test "HCGTU"(Test #550.56899) Urine Source? Clean CatchURINALYSIS [id number] 08:54:00* Test Item Value Reference Range Interpretation Comments UA COLOR (test code = COLU) Light-Yellow YELLOW UA APPEARANCE (test code = APPU) CLEAR CLEAR UA GLUCOSE DIPSTICK (test code = DGLUU) NEGATIVE mg/dL NEGATIVE UA BILIRUBIN DIPSTICK (test code = BILU) NEGATIVE mg/dL NEGATIVE UA KETONE DIPSTICK (test code = KETU) NEGATIVE mg/dL NEGATIVE UA SPECIFIC GRAVITY (test code = SGU) 1.006 1.001-1.035 UA BLOOD DIPSTICK (test code = MAT) Negative mg/dL NEGATIVE UA PH DIPSTICK (test code = CHARISMA) 6.5 5.0-8.0 UA PROTEIN DIPSTICK (test code = PROU) NEGATIVE mg/dL NEGATIVE UA UROBILINIOGEN DIPSTICK (test code = URO) Normal mg/dL NEGATIVE UA NITRITE DIPSTICK (test code = MANDI) NEGATIVE NEGATIVE UA LEUKOCYTE ESTERASE W REFLEX (test code = LEUUR) NEGATIVE Rah/uL NEGATIVE UA WBC (test code = WBCU) 0-5 per HPF 0-5 UA RBC (test code = RBCU) 0-2 #/HPF 0-5 UA EPITHELIAL CELLS (test code = EPIU) FEW per HPF FEW UA BACTERIA (test code = BACU) FEW #/HPF NONE A UA MUCUS (test code = MUCU) FEW #/LPF FEW Urine Source? Clean CatchUR HCG [id number] 08:54:00* Test Item Value Reference Range Interpretation Comments UR HCG QUAL (test code = HCGQLU) NEGATIVE This HCGQL test is NOT applicable for MALE patients.Check with nurse about probable order error.If Tumor Marker Test needed, nurse should order test "HCGTU"(Test #550.58750) Urine Source? Clean CatchCBC W/O [id number] 08:39:00* Test Item Value Reference Range Interpretation Comments WHITE BLOOD CELL (test code = WBC) 7.0 K/mm3 4.5-12.5 N RED BLOOD CELL (test code = RBC) 4.65 mill/mm3 3.7-5.2 N HEMOGLOBIN (test code = HGB) 13.6 gram/dL 11.5-15.5 N HEMATOCRIT (test code = HCT) 41.1 % 36.0-46.0 N MEAN CELL VOLUME (test code = MCV) 88.4 fL 80-98 N MEAN CELL HGB (test code = MCH) 29.2 picogram 27.0-33.0 N MEAN CELL HGB CONCETRATION (test code = MCHC) 33.1 gram/dL 33.0-36. 0 N RED CELL DISTRIBUTION WIDTH (test code = RDW) 13.3 % 11.6-16. 2 N PLATELET COUNT (test code = PLT) 285 K/mm3 150-450 N MEAN PLATELET VOLUME (test code = MPV) 9.2 fL 6.7-11.0 N CBC W/O [id number] 08:38:00* Test Item Value Reference Range Interpretation Comments WHITE BLOOD CELL (test code = WBC) K/mm3 4.5-12.5 RED BLOOD CELL (test code = RBC) mill/mm3 3.7-5.2 HEMOGLOBIN (test code = HGB) 13.6 gram/dL 11.5-15.5 N HEMATOCRIT (test code = HCT) 41.1 % 36.0-46.0 N MEAN CELL VOLUME (test code = MCV) fL 80-98 MEAN CELL HGB (test code = MCH) picogram 27.0-33.0 MEAN CELL HGB CONCETRATION (test code = MCHC) gram/dL 33.0-36. 0 RED CELL DISTRIBUTION WIDTH (test code = RDW) % 11.6-16. 2 PLATELET COUNT (test code = PLT) K/mm3 150-450 MEAN PLATELET VOLUME (test code = MPV) fL 6.7-11.0 KIDNEY STONE [id number] 14:11:00* Test Item Value Reference Range Interpretation Comments KIDNEY STONE ANALYSIS (test code = STONEK) mm () Specimen received as fragments. SOURCE OF STONE (test code = STONESRC) KIDNEY STONE ANALYSIS COMMENT (test code = STONECOM) NO NIDUS VISUALIZED N IDUS Color: Glover Size : Specimen received as fragments. Composition: Percentage (Represents the % composition) Comment:Specimen appears to consist of extraneous material alongwith calcium oxalate and calcium phosphate crystals. Test performed at: [place] [address] STONE ANALYSIS (test code = STONE) () Photograph will follow under separate cover. WEIGHT OF STONE (test code = STONEWT) <1.0 mg () Test performed at: [place] [address] SPECIMEN COMMENTS: RENAL STONES COLLECTED BY OMMENTS TO PHLEBOTO MIST: [facility] STONE [id number] 14:07:00* Test Item Value Reference Range Interpretation Comments KIDNEY STONE ANALYSIS (test code = STONEK) 3x2x1 mm () SOURCE OF STONE (test code = STONESRC) KIDNEY STONE ANALYSIS COMMENT (test code = STONECOM) NO NIDUS VISUALIZED N IDUS Color: Glover Composition: Percentage (Represents the % composition) Ca oxalate dihydrate 30 % Ca oxalate monohydr. 50 % Calcium phosphate 20 % Surface Crystals: Calcium oxalate dihydrate Test performed at: [place] [address] STONE ANALYSIS (test code = STONE) () Photograph will follow under separate cover. WEIGHT OF STONE (test code = STONEWT) 7.0 mg () Test performed at: [place] [address] KIDNEY STONE [id number] 10:14:00* Test Item Value Reference Range Interpretation Comments KIDNEY STONE ANALYSIS (test code = STONEK) 3x2x1 mm () SOURCE OF STONE (test code = STONESRC) STONE ANALYSIS COMMENT (test code = STONECOM) NIDUS STONE ANALYSIS (test code = STONE) () Photograph will follow under separate cover. WEIGHT OF STONE (test code = STONEWT) 7.0 mg () Test performed at: [place] [address] KIDNEY STONE [id number] 08:18:00* Test Item Value Reference Range Interpretation Comments KIDNEY STONE ANALYSIS (test code = STONEK) mm () Specimen received as fragments. SOURCE OF STONE (test code = STONESRC) STONE ANALYSIS COMMENT (test code = STONECOM) NIDUS STONE ANALYSIS (test code = STONE) () Photograph will follow under separate cover. WEIGHT OF STONE (test code = STONEWT) <1.0 mg () Test performed at: [address] [address] SPECIMEN COMMENTS: RENAL STONES COLLECTED BY MENTS TO PHLEBOTO MIST: IN SURGERYCT ABDOMEN/PELVIS [id number] 20:53:00 [place] [address] Patient Name: ANGELA ESPINOSA MR #: [id number] : 1975 Age/Sex: 42/F Req #: [id number] Adm Physician: GLENN TILLEY MD Ordered by: JOHN MALONEY MD Report #: [id number] Location: MED/SURG Room/Bed: [facility] Procedure: [id number] CT/CT ABDOMEN/PELVIS W Exam Date: Exam Time: REPORT STATUS: Signed EXAM: CT of the abdomen and pelvis WITH contrast HISTORY: ABDOMINAL PAIN, right lower a bdominal pain, status post lithotripsy COMPARISON: CT of the abdomen and pelv is October 01, 2018. TECHNIQUE: The abdomen and pelvis were scanned utilizing a multidetector helical scanner. Coronal and sagittal reformats are provided. PROTOCOL: Routine IV CONTRAST: 100 cc of Isovue- 370. ORAL CONTRAST: None, which limits sensitivity and specificit y of the exam. RADIATION DOSE: Total DLP: 844.3 mGy*cm Estimated effective dose: (DLP x 0.015 x size factor) Dose mod ulation, iterative reconstruction, and/or weight based adjustment of the mA/kV was utilized to reduce the radiation dose to as low as reasonably achievable. COMPLICATIONS: None FINDINGS: LOWER THORAX: Unremarkable. HEPATOBILIARY: Diffusely decreased attenuation of the liver relative to the spleen. No mass. No biliary dilation. Metallic clips in the right upper quadrant of the abdomen are compatible with prior cholecystectomy. SPLEEN: No splenomegaly. PANCREAS: No focal masses or ductal dilatation. ADRENALS: No discrete adrenal nodule. KIDNEYS/URETERS: The punctate bilat eral renal calcifications are better seen on the comparison CT without contras t. No hydronephrosis. Mild enhancement of the ureteral mckinney, right greater th an left. Mild fat stranding about the distal ureter. PELVIC ORGANS/BLADDE R: Small air foci within the nondependent portion of the urinary bladder, c ompatible with recent instrumentation. A 1.5 cm curvilinear enhancement in the left ovary and smaller on the right, compatible with a corpus luteum cysts. GI TRACT: No dilation or wall thickening identified. The appendix is no rmal. PERITONEUM / RETROPERITONEUM: No free air or fluid. Two metallic densities at the paramedian omentum. LYMPH NODES: No pathologically enlarged lymph node. VESSELS: Unremarkable. BONES: No aggressive osseous lesion or acute fracture. A small nonaggressive sclerotic density within the L5 verteb ral body, compatible the bone island. SOFT TISSUES: Ventral midline surgical s car. IMPRESSION: 1. Small bilateral renal stones are better seen on the comparison CT. 2. No hydronephrosis. 3. No abscess. 4. Bilateral co rpus luteum cysts within the ovaries. 5. Small amount of air within the urina ry bladder, compatible with recent instrumentation. Signed by: Dr. Harsh regan, D.O., M.M.M. on 11/11/2018 9:14 PM Dictated By: HARSH RUSSELL DO Dinah ctronically Signed By: HARSH RUSSELL DO on 11/11/182113 Transcribed By: LULU on 11/11/182113 COPY TO: JOHN MALONEY MD [id number] 14:43:00 RUN DATE: 11/11/18 [place] - Lab PAGE 1 RUN TIME: 1444 Specimen Inqui ry RUN USER: INTERFACE PATIENT: ANGELA ESPINOSA ACCT #: V [id number] LOC: [facility] U #: [id number] AGE/SX: 42/F ROOM: RE11/09/18REG DR: Sebastian Riojas MD : [birth year] BED: DIS: STATUS: [facility] TLOC: SPEC #: [id number] RECD: 11/09/18 STATUS: SHAGUFTA RAMIREZ #: [id number] MICHELLE: 11/09/[address] [facility] [address]: Sebastian Riojas MD ENTERED: 11/09/18 SP TYPE: CALCULI OTHR DR: Vicente Bui MD ORDERED: GROSS COPIES TO: Sebastian Riojas MD [address] [place] [address] Vicente Bui MD [address] [place] [address] PROCEDURES: GROSS (-1111) TISSUES: 1. LEFT KIDNEY - STONE 2. RIGHT KIDNEY - STO NE CLINICAL HISTORY COLLECTION DATE: 11/09/18 RENAL STONE FINAL DIAGNOSIS Left renal stone, removal: CALCULOUS MATERIAL (GROSS IDENTIFICATION) SUBMITTED FOR CHEMICAL ANALYSIS Right renal st one, removal CALCULOUS MATERIAL (GROSS IDENTIFICATION) SUBMITTED F OR CHEMICAL ANALYSIS RRB/ D [phone] CONTINUED ON NEXT PAGE RUN DATE: 11/11/18 [facility] Lab PAGE 2 RUN TIME: 1444 Specimen Inquiry RUN USER: INTERFACE SPEC #: [id number] PATIENT: ANGELA ESPINOSA #[id number] (Leila nued) MACROSCOPIC Specimen (1) is received without fix ative in a container labeled with the patient's name, and identified as "renal stone left". It consists of small fragment of brown calculous material measu ring less than 0.1 cm in diameter, submitted as (1). The material is submitte d for chemical analysis. Specimen (2) is received without fixative in cont ainer labeled with the patient's name, and identified as "renal stone right". It consists of a fragment of brown calculous material measuring 0.25 cm in gr eatest diameter. The specimen is submitted as (2). The material is submitted for chemical analysis. GROSS PERFORMED AT [facility] [address] [place] [address] 4 [phone] Signed SIGNATURE ON FILE Alin Tian MD 11/11/18 1442 END OF REPORT Sodium [id number] 12:09:00 * Test Item Value Reference Range Interpretation Comments Sodium Level (test code = 2951-2) 134 136-145 L [facility] [id number] 12:09:00* Test Item Value Reference Range Interpretation Comments Potassium Level (test code = 2823-3) 3.9 3.5-5.1 [facility] HospitalChloride [id number] 12:09:00* Test Item Value Reference Range Interpretation Comments Chloride Level (test code = 2075-0) 106 98-107 [facility] HospitalCarbon Dioxide [id number] 12:09:00* Test Item Value Reference Range Interpretation Comments Carbon Dioxide Level (test code = 2028-9) 22 22-29 [facility] HospitalAnion [id number] 12:09:00* Test Item Value Reference Range Interpretation Comments Anion Gap (test code = 95442-9) 9.9 8-16 [facility] HospitalBlood Urea [id number] 12:09:00* Test Item Value Reference Range Interpretation Comments Blood Urea Nitrogen (test code = 3094-0) 9 12-24 [facility] HospitalCreatinine2019-06-13 12:09:00* Test Item Value Reference Range Interpretation Comments Creatinine (test code = 2160-0) 0.84 0.57-1.11 [facility] HospitalBUN/Creatinine [id number] 12:09:00* Test Item Value Reference Range Interpretation Comments BUN/Creatinine Ratio (test code = 3097-3) 11 11-23 [facility] HospitalEstimat Glomerular Filtration Rate 2018-11-11 12:09:00* Test Item Value Reference Range Interpretation Comments Estimat Glomerular Filtration Rate (test code = 244677070) > 60 >60 Ranges were taken from the National Kidney Disease Education Program and the [facility] [employer] literature.Reference ranges:60 or greater: Glqpjp84-74 ( for 3 consecutive months): Chronic kidney disease 15 or less: Kidney failureMemorial Hermann Cypress HospitalGlucose [id number] 12:09:00* Test Item Value Reference Range Interpretation Comments Glucose Level (test code = XAL0884) 89 74-118 [facility] HospitalCalcium [id number] 12:09:00* Test Item Value Reference Range Interpretation Comments Calcium Level (test code = 14012-0) 8.3 8.4-10.2 L [facility] HospitalWhite Blood [id number] 11:01:00* Test Item Value Reference Range Interpretation Comments White Blood Count (test code = 6690-2) 5.53 4.8-10.8 [facility] HospitalRed Blood [id number] 11:01:00* Test Item Value Reference Range Interpretation Comments Red Blood Count (test code = 789-8) 3.97 3.6-5.1 [facility] HospitalHemoglobin2019-06-13 11:01:00* Test Item Value Reference Range Interpretation Comments Hemoglobin (test code = 45325-4) 11.7 12.0-16.0 L [facility] HospitalHematocrit2019-06-13 11:01:00* Test Item Value Reference Range Interpretation Comments Hematocrit (test code = 4544-3) 35.1 34.2-44.1 [facility] HospitalMean Corpuscular [id number] 11:01:00* Test Item Value Reference Range Interpretation Comments Mean Corpuscular Volume (test code = 787-2) 88.4 81-99 [facility] HospitalMean Corpuscular Mpiyqvqjrp7546-75-08 11:01:00* Test Item Value Reference Range Interpretation Comments Mean Corpuscular Hemoglobin (test code = 785-6) 29.5 28-32 [facility] HospitalMean Corpuscular Hemoglobin Concent 2018-11-11 11:01:00* Test Item Value Reference Range Interpretation Comments Mean Corpuscular Hemoglobin Concent (test code = 786-4) 33.3 31-35 [facility] HospitalRed Cell Distribution [id number] 11:01:00* Test Item Value Reference Range Interpretation Comments Red Cell Distribution Width (test code = 62872-4) 13.5 11.7 -14.4 [facility] HospitalPlatelet [id number] 11:01:00* Test Item Value Reference Range Interpretation Comments Platelet Count (test code = 777-3) 205 140-360 [facility] HospitalNeutrophils (%) (Auto)2018-11-11 11:01:00 * Test Item Value Reference Range Interpretation Comments Neutrophils (%) (Auto) (test code = 13500-0) 49.1 38.7-80.0 [facility] HospitalLymphocytes (%) (Auto)2018-11-11 11:01:00 * Test Item Value Reference Range Interpretation Comments Lymphocytes (%) (Auto) (test code = 736-9) 39.6 18.0-39.1 H [facility] HospitalMonocytes (%) (Auto)2018-11-11 11:01:00* Test Item Value Reference Range Interpretation Comments Monocytes (%) (Auto) (test code = 5905-5) 8.0 4.4-11.3 [facility] HospitalEosinophils (%) (Auto)2018-11-11 11:01:00 * Test Item Value Reference Range Interpretation Comments Eosinophils (%) (Auto) (test code = 713-8) 2.4 0.0-6.0 [facility] HospitalBasophils (%) (Auto)2018-11-11 11:01:00* Test Item Value Reference Range Interpretation Comments Basophils (%) (Auto) (test code = 706-2) 0.9 0.0-1.0 [facility] HospitalIM GRANULOCYTES %2018-11-11 11:01:00* Test Item Value Reference Range Interpretation Comments IM GRANULOCYTES % (test code = IM GRANULOCYTES %) 0.0 0.0- 1.0 [facility] HospitalNeutrophils # (Auto)2018-11-11 11:01:00* Test Item Value Reference Range Interpretation Comments Neutrophils # (Auto) (test code = 751-8) 2.7 2.1-6.9 [facility] HospitalLymphocytes # (Auto)2018-11-11 11:01:00* Test Item Value Reference Range Interpretation Comments Lymphocytes # (Auto) (test code = 82959-9) 2.2 1.0-3.2 [facility] HospitalMonocytes # (Auto)2018-11-11 11:01:00* Test Item Value Reference Range Interpretation Comments Monocytes # (Auto) (test code = 742-7) 0.4 0.2-0.8 [facility] HospitalEosinophils # (Auto)2018-11-11 11:01:00* Test Item Value Reference Range Interpretation Comments Eosinophils # (Auto) (test code = 711-2) 0.1 0.0-0.4 [facility] HospitalBasophils # (Auto)2018-11-11 11:01:00* Test Item Value Reference Range Interpretation Comments Basophils # (Auto) (test code = 704-7) 0.1 0.0-0.1 [facility] HospitalAbsolute Immature Granulocyte (auto 2018-11-11 11:01:00* Test Item Value Reference Range Interpretation Comments Absolute Immature Granulocyte (auto (alexa t code = Absolute Immature Granulocyte (auto) 0 0-0.1 [facility] HospitalHemoglobin A1c [id number] 07:48:00 * Test Item Value Reference Range Interpretation Comments Hemoglobin A1c Percent (test code = Hemoglobin A1c Percent) 5.3 4.0-7.0 [facility] HospitalHemoglobin A1c [id number] 07:48:00 * Test Item Value Reference Range Interpretation Comments Hemoglobin A1c Percent (test code = Hemoglobin A1c Percent) 5.3 4.0-7.0 [facility] HospitalHemoglobin A1c [id number] 07:48:00 * Test Item Value Reference Range Interpretation Comments Hemoglobin A1c Percent (test code = Hemoglobin A1c Percent) 5.3 4.0-7.0 [facility] HospitalHemoglobin A1c Kehkdoa7589-70-76 07:48:00 * Test Item Value Reference Range Interpretation Comments Hemoglobin A1c Percent (test code = Hemoglobin A1c Percent) 5.3 4.0-7.0 [facility] HospitalHemoglobin A1c Ubpzids8343-63-97 07:48:00 * Test Item Value Reference Range Interpretation Comments Hemoglobin A1c Percent (test code = Hemoglobin A1c Percent) 5.3 4.0-7.0 [facility] HospitalHemoglobin A1c Xefbjro9582-62-22 07:48:00 * Test Item Value Reference Range Interpretation Comments Hemoglobin A1c Percent (test code = Hemoglobin A1c Percent) 5.3 4.0-7.0 [facility] HospitalTriglycerides Svcbl2274-12-95 07:26:00* Test Item Value Reference Range Interpretation Comments Triglycerides Level (test code = 2571-8) 122 0-149 [facility] HospitalCholesterol Wsuus3379-86-71 07:26:00* Test Item Value Reference Range Interpretation Comments Cholesterol Level (test code = 2093-3) 189 0-199 Less than 200 mg/dL Low Rhiq533 - 239 mg/dL Borderline Yrup555 m g/dl and greater High Risk [facility] HospitalLDL Pjhfixsqfsb4109-07-01 07:26:00* Test Item Value Reference Range Interpretation Comments LDL Cholesterol (test code = 2089-1) 108 60-130 [facility] Onetlcmyltg9922-93-83 07:26:00* Test Item Value Reference Range Interpretation Comments HDL Cholesterol (test code = 2085-9) 57 40-60 [facility] HospitalCholesterol/HDL Luosr4230-04-22 07:26:00 * Test Item Value Reference Range Interpretation Comments Cholesterol/HDL Ratio (test code = 9830-1) 3.3 3.0-3.6 [facility] HospitalTriglycerides Lvuhu7760-62-20 07:26:00* Test Item Value Reference Range Interpretation Comments Triglycerides Level (test code = 2571-8) 122 0-149 [facility] HospitalCholesterol Trxzo3682-86-53 07:26:00* Test Item Value Reference Range Interpretation Comments Cholesterol Level (test code = 2093-3) 189 0-199 Less than 200 mg/dL Low Orrj929 - 239 mg/dL Borderline Yspf313 m g/dl and greater High Risk [facility] Lgnhlgnhqgq7289-81-59 07:26:00* Test Item Value Reference Range Interpretation Comments LDL Cholesterol (test code = 2089-) 108 60-130 [facility] Mkdicsimcil0330-21-45 07:26:00* Test Item Value Reference Range Interpretation Comments HDL Cholesterol (test code = 2085-9) 57 40-60 [facility]Ch[facility]/HDL Vsfmm5245-44-95 07:26:00 * Test Item Value Reference Range Interpretation Comments Cholesterol/HDL Ratio (test code = 9830-1) 3.3 3.0-3.6 [facility] HospitalTriglycerides Axfgl1955-08-27 07:26:00* Test Item Value Reference Range Interpretation Comments Triglycerides Level (test code = 2571-8) 122 0-149 [facility] HospitalCholesterol Fthyt0013-36-86 07:26:00* Test Item Value Reference Range Interpretation Comments Cholesterol Level (test code = 2093-3) 189 0-199 Less than 200 mg/dL Low Lmtz133 - 239 mg/dL Borderline Rpar593 m g/dl and greater High Risk [facility] HospitalLDL Pofhubearxz8224-22-45 07:26:00* Test Item Value Reference Range Interpretation Comments LDL Cholesterol (test code = 2089-1) 108 60-130 [facility] Brlumwedrsi7235-07-94 07:26:00* Test Item Value Reference Range Interpretation Comments HDL Cholesterol (test code = 2085-9) 57 40-60 [facility] HospitalCholesterol/HDL Xxgmi0706-79-32 07:26:00 * Test Item Value Reference Range Interpretation Comments Cholesterol/HDL Ratio (test code = 9830-1) 3.3 3.0-3.6 [facility] HospitalTriglycerides Hysmw0632-96-57 07:26:00* Test Item Value Reference Range Interpretation Comments Triglycerides Level (test code = 2571-8) 122 0-149 [facility] HospitalCholesterol Yihep4090-27-64 07:26:00* Test Item Value Reference Range Interpretation Comments Cholesterol Level (test code = 2093-3) 189 0-199 Less than 200 mg/dL Low Rcyd114 - 239 mg/dL Borderline Oyoa628 m g/dl and greater High Risk [facility] HospitalLDL Iukxpwbwtnx9804-46-26 07:26:00* Test Item Value Reference Range Interpretation Comments LDL Cholesterol (test code = 2089-1) 108 60-130 [facility] Gwccbmkmguu5132-25-35 07:26:00* Test Item Value Reference Range Interpretation Comments HDL Cholesterol (test code = 2085-9) 57 40-60 [facility] HospitalCholesterol/HDL Xgwvp1010-76-53 07:26:00 * Test Item Value Reference Range Interpretation Comments Cholesterol/HDL Ratio (test code = 9830-1) 3.3 3.0-3.6 [facility] HospitalTriglycerides Hjyij7726-44-07 07:26:00* Test Item Value Reference Range Interpretation Comments Triglycerides Level (test code = 2571-8) 122 0-149 [facility] HospitalCholesterol Hfwni7144-05-51 07:26:00* Test Item Value Reference Range Interpretation Comments Cholesterol Level (test code = 2093-3) 189 0-199 Less than 200 mg/dL Low Lxxp501 - 239 mg/dL Borderline Ueph149 m g/dl and greater High Risk [facility] HospitalLDL Jfugbpcsosl7192-84-61 07:26:00* Test Item Value Reference Range Interpretation Comments LDL Cholesterol (test code = 2089-1) 108 60-130 [facility] HospitalHDL Quxpgisigxj7250-60-27 07:26:00* Test Item Value Reference Range Interpretation Comments HDL Cholesterol (test code = 2085-9) 57 40-60 [facility] HospitalCholesterol/HDL Xfwxj2270-05-58 07:26:00 * Test Item Value Reference Range Interpretation Comments Cholesterol/HDL Ratio (test code = 9830-1) 3.3 3.0-3.6 [facility] HospitalTriglycerides Mlgdo9830-99-32 07:26:00* Test Item Value Reference Range Interpretation Comments Triglycerides Level (test code = 2571-8) 122 0-149 [facility] HospitalCholesterol Psxlt8940-13-88 07:26:00* Test Item Value Reference Range Interpretation Comments Cholesterol Level (test code = 2093-3) 189 0-199 Less than 200 mg/dL Low Snmm315 - 239 mg/dL Borderline Huzw683 m g/dl and greater High Risk [facility] HospitalLDL Nrikjqjcohv3497-57-92 07:26:00* Test Item Value Reference Range Interpretation Comments LDL Cholesterol (test code = 2089-1) 108 60-130 [facility] Xozmzlaikvu7958-35-43 07:26:00* Test Item Value Reference Range Interpretation Comments HDL Cholesterol (test code = 2085-9) 57 40-60 [facility] HospitalCholesterol/HDL Vydky8924-53-89 07:26:00 * Test Item Value Reference Range Interpretation Comments Cholesterol/HDL Ratio (test code = 9830-1) 3.3 3.0-3.6 [facility] HospitalMagnesium Yitfy1214-51-09 23:30:00* Test Item Value Reference Range Interpretation Comments Magnesium Level (test code = 48494-8) 2.1 1.3-2.1 [facility] HospitalTotal Pyuegufwj6229-53-91 23:30:00* Test Item Value Reference Range Interpretation Comments Total Bilirubin (test code = 1975-2) 0.3 0.2-1.2 [facility] HospitalAspartate Amino Transf (AST/SGOT) 2018-11-09 23:30:00* Test Item Value Reference Range Interpretation Comments Aspartate Amino Transf (AST/SGOT) (test code = Aspartate Amino Transf (AST/SGOT)) 79 5-34 H [facility] HospitalAlanine Aminotransferase (ALT/SGPT) 2018-11-09 23:30:00* Test Item Value Reference Range Interpretation Comments Alanine Aminotransferase (ALT/SGPT) (test code = 1742-6) 111 0-55 H [facility] Igpkvdw6950-52-32 23:30:00* Test Item Value Reference Range Interpretation Comments Total Protein (test code = 2885-2) 6.6 6.5-8.1 [facility] HospitalAlbumin2019-06-11 23:30:00* Test Item Value Reference Range Interpretation Comments Albumin (test code = 1751-7) 3.5 3.5-5.0 [facility] HospitalGlobulin2019-06-11 23:30:00* Test Item Value Reference Range Interpretation Comments Globulin (test code = 83092-3) 3.1 2.3-3.5 [facility] HospitalAlbumin/Globulin Bxdxt3309-32-10 23:30:00 * Test Item Value Reference Range Interpretation Comments Albumin/Globulin Ratio (test code = 1759-0) 1.1 0.8-2.0 [facility] HospitalAlkaline Dvhucptufpm5590-24-62 23:30:00* Test Item Value Reference Range Interpretation Comments Alkaline Phosphatase (test code = 6768-6) 104 40-150 [facility] HospitalAmylase Dhzkr9664-62-19 23:30:00* Test Item Value Reference Range Interpretation Comments Amylase Level (test code = 1798-8) 57 25-125 [facility] HospitalLipase2019-06-11 23:30:00* Test Item Value Reference Range Interpretation Comments Lipase (test code = 3040-3) 26 8-78 [facility] Alehm2178-50-43 23:30:00* Test Item Value Reference Range Interpretation Comments Magnesium Level (test code = 94000-1) 2.1 1.3-2.1 [facility] HospitalAmylase Fnpwp7350-55-45 23:30:00* Test Item Value Reference Range Interpretation Comments Amylase Level (test code = 1798-8) 57 25-125 [facility]2019-06-11 23:30:00* Test Item Value Reference Range Interpretation Comments Magnesium Level (test code = 01495-7) 2.1 1.3-2.1 [facility]2019-06-11 23:30:00* Test Item Value Reference Range Interpretation Comments Amylase Level (test code = 1798-8) 57 25-125 [facility]2019-06-11 23:30:00* Test Item Value Reference Range Interpretation Comments Magnesium Level (test code = 50517-4) 2.1 1.3-2.1 [facility] HospitalAmylase Oqoay6054-64-33 23:30:00* Test Item Value Reference Range Interpretation Comments Amylase Level (test code = 1798-8) 57 25-125 [facility]2019-06-11 23:30:00* Test Item Value Reference Range Interpretation Comments Magnesium Level (test code = 33340-0) 2.1 1.3-2.1 [facility] HospitalAmylase Lgyba0287-26-98 23:30:00* Test Item Value Reference Range Interpretation Comments Amylase Level (test code = 1798-8) 57 25-125 [facility]2019-06-11 23:30:00* Test Item Value Reference Range Interpretation Comments Magnesium Level (test code = 62406-8) 2.1 1.3-2.1 [facility] HospitalAmylase Njtuv9863-49-98 23:30:00* Test Item Value Reference Range Interpretation Comments Amylase Level (test code = 1798-8) 57 25-125 [facility] HospitalUrine OTH3687-75-63 23:03:00* Test Item Value Reference Range Interpretation Comments Urine WBC (test code = 5821-4) 21-50 0-5 H [facility] HospitalUrine OIL4928-03-68 23:03:00* Test Item Value Reference Range Interpretation Comments Urine RBC (test code = 27635-5) >50 0-5 H [facility] HospitalUrine Kqkigwub2810-32-58 23:03:00* Test Item Value Reference Range Interpretation Comments Urine Bacteria (test code = 27457-2) FEW NONE [facility] HospitalUrine Epithelial Ukgqs4155-14-97 23:03:00 * Test Item Value Reference Range Interpretation Comments Urine Epithelial Cells (test code = 11379-5) FEW NONE [facility] HospitalProthrombin Lprm5724-13-26 22:55:00* Test Item Value Reference Range Interpretation Comments Prothrombin Time (test code = 5902-2) 12.7 11.9-14.5 [facility] HospitalProthromb Time International Ratio 2018-11-09 22:55:00* Test Item Value Reference Range Interpretation Comments Prothromb Time International Ratio (test code = 6301-6) 0.91 Oral Anticoagulant Therapy INR Values:1. Low Intensity Therapy 1.5 - 2.02 . Moderate Intensity Therapy 2.0 - 3.03. High Intensity Therapy(1) 2.5 - 3. 54. High Intensity Therapy(2) 3.0 - 4.05. Panic Value INR > 5.0 [facility] HospitalActivated Partial Thromboplast Time 2018-11-09 22:55:00* Test Item Value Reference Range Interpretation Comments Activated Partial Thromboplast Time (test code = 26968-4) 29.2 23.8-35.5 [facility] HospitalUrine Xssxc0018-87-04 22:55:00* Test Item Value Reference Range Interpretation Comments Urine Color (test code = 5778-6) BROWN YELLOW H [facility] HospitalUrine Glfywfg1054-71-78 22:55:00* Test Item Value Reference Range Interpretation Comments Urine Clarity (test code = 94498-0) CLOUDY CLEAR H [facility] HospitalUrine Specific Ognvusd6217-58-65 22:55:00 * Test Item Value Reference Range Interpretation Comments Urine Specific [place] (test code = 5811-5) 1.020 1.010-1.02 5 [facility] HospitalUrine gR2568-51-95 22:55:00* Test Item Value Reference Range Interpretation Comments Urine pH (test code = 16872-3) 6.5 5-7 [facility] HospitalUrine Leukocyte Lqwttpbg0407-08-82 22:55:00* Test Item Value Reference Range Interpretation Comments Urine Leukocyte Esterase (test code = 77412-6) TRACE NEGATIV E H [facility] HospitalUrine Zvisjkl5037-20-23 22:55:00* Test Item Value Reference Range Interpretation Comments Urine Nitrite (test code = 67967-0) NEGATIVE NEGATIVE [facility] HospitalUrine Gvaacus7295-94-38 22:55:00* Test Item Value Reference Range Interpretation Comments Urine Protein (test code = 51819-1) 2+ NEGATIVE H [facility] HospitalUrine Glucose (UA)2018-11-09 22:55:00* Test Item Value Reference Range Interpretation Comments Urine Glucose (UA) (test code = 16104-4) NEGATIVE NEGATIVE [facility] HospitalU[facility] Ykdkqbb6918-84-26 22:55:00* Test Item Value Reference Range Interpretation Comments Urine Ketones (test code = 45901-4) NEGATIVE NEGATIVE [facility] HospitalU[facility] Ohqdsrdngjmd2273-79-09 22:55:00* Test Item Value Reference Range Interpretation Comments Urine Urobilinogen (test code = 27325-8) 0.2 0.2-1 [facility] HospitalUrine Xovyeuhqu7803-83-28 22:55:00* Test Item Value Reference Range Interpretation Comments Urine Bilirubin (test code = 1977-8) SMALL NEGATIVE [facility] HospitalU[facility] Itmeu0844-40-53 22:55:00* Test Item Value Reference Range Interpretation Comments Urine Blood (test code = 41885-3) 3+ NEGATIVE [facility] HospitalProthrombin Jkxn4324-29-26 22:55:00* Test Item Value Reference Range Interpretation Comments Prothrombin Time (test code = 5902-2) 12.7 11.9-14.5 [facility] HospitalProthromb Time International Ratio 2018-11-09 22:55:00* Test Item Value Reference Range Interpretation Comments Prothromb Time International Ratio (test code = 6301-6) 0.91 Oral Anticoagulant Therapy INR Values:1. Low Intensity Therapy 1.5 - 2.02 . Moderate Intensity Therapy 2.0 - 3.03. High Intensity Therapy(1) 2.5 - 3. 54. High Intensity Therapy(2) 3.0 - 4.05. Panic Value INR > 5.0 [facility] HospitalActivated Partial Thromboplast Time 2018-11-09 22:55:00* Test Item Value Reference Range Interpretation Comments Activated Partial Thromboplast Time (test code = 61131-5) 29.2 23.8-35.5 [facility] HospitalProthrombin Lmrk3019-92-19 22:55:00* Test Item Value Reference Range Interpretation Comments Prothrombin Time (test code = 5902-2) 12.7 11.9-14.5 [facility] HospitalProthromb Time International Ratio 2018-11-09 22:55:00* Test Item Value Reference Range Interpretation Comments Prothromb Time International Ratio (test code = 6301-6) 0.91 Oral Anticoagulant Therapy INR Values:1. Low Intensity Therapy 1.5 - 2.02 . Moderate Intensity Therapy 2.0 - 3.03. High Intensity Therapy(1) 2.5 - 3. 54. High Intensity Therapy(2) 3.0 - 4.05. Panic Value INR > 5.0 [facility] HospitalActivated Partial Thromboplast Time 2018-11-09 22:55:00* Test Item Value Reference Range Interpretation Comments Activated Partial Thromboplast Time (test code = 30409-3) 29.2 23.8-35.5 [facility] HospitalProthrombin Hzyl3377-41-45 22:55:00* Test Item Value Reference Range Interpretation Comments Prothrombin Time (test code = 5902-2) 12.7 11.9-14.5 [facility] HospitalProthromb Time International Ratio 2018-11-09 22:55:00* Test Item Value Reference Range Interpretation Comments Prothromb Time International Ratio (test code = 6301-6) 0.91 Oral Anticoagulant Therapy INR Values:1. Low Intensity Therapy 1.5 - 2.02 . Moderate Intensity Therapy 2.0 - 3.03. High Intensity Therapy(1) 2.5 - 3. 54. High Intensity Therapy(2) 3.0 - 4.05. Panic Value INR > 5.0 [facility] HospitalActivated Partial Thromboplast Time 2018-11-09 22:55:00* Test Item Value Reference Range Interpretation Comments Activated Partial Thromboplast Time (test code = 85392-8) 29.2 23.8-35.5 [facility] HospitalProthrombin Kmbf7525-99-75 22:55:00* Test Item Value Reference Range Interpretation Comments Prothrombin Time (test code = 5902-2) 12.7 11.9-14.5 [facility] HospitalProthromb Time International Ratio 2018-11-09 22:55:00* Test Item Value Reference Range Interpretation Comments Prothromb Time International Ratio (test code = 6301-6) 0.91 Oral Anticoagulant Therapy INR Values:1. Low Intensity Therapy 1.5 - 2.02 . Moderate Intensity Therapy 2.0 - 3.03. High Intensity Therapy(1) 2.5 - 3. 54. High Intensity Therapy(2) 3.0 - 4.05. Panic Value INR > 5.0 [facility] HospitalActivated Partial Thromboplast Time 2018-11-09 22:55:00* Test Item Value Reference Range Interpretation Comments Activated Partial Thromboplast Time (test code = 28024-8) 29.2 23.8-35.5 [facility] HospitalProthrombin Ryiv0476-93-71 22:55:00* Test Item Value Reference Range Interpretation Comments Prothrombin Time (test code = 5902-2) 12.7 11.9-14.5 [facility] HospitalProthromb Time International Ratio 2018-11-09 22:55:00* Test Item Value Reference Range Interpretation Comments Prothromb Time International Ratio (test code = 6301-6) 0.91 Oral Anticoagulant Therapy INR Values:1. Low Intensity Therapy 1.5 - 2.02 . Moderate Intensity Therapy 2.0 - 3.03. High Intensity Therapy(1) 2.5 - 3. 54. High Intensity Therapy(2) 3.0 - 4.05. Panic Value INR > 5.0 [facility] HospitalActivated Partial Thromboplast Time 2018-11-09 22:55:00* Test Item Value Reference Range Interpretation Comments Activated Partial Thromboplast Time (test code = 60636-5) 29.2 23.8-35.5 [facility]- US TRANSVAGINAL NON [id number] 11:04:00 Name: ANGELA ESPINOSA [facility] : 1975 Age/S: 42 / F [address] Unit #: [id number] Loc: [place] [address] Phys: Hesham Acuña MD Acct: [id number] Dis Date: Status: REG ER PHONE #: [phone] Exam Date: 11/07/2018 1036 FAX #: [phone] Reason: RLQ PAIN EXAMS: CPT CODE: [id number] [place] [address] HISTORY: Right adnexal pain TECHNIQUE: Static grayscale and color Doppler images from real-time transabdominal sonographic evaluation of the pelvis. Images from endovaginal probe were also acquired for better visualization of endometrial canal and adnexal structures. COMPARISON: CT from earlier today IMPRESSION: Hysterectomy in 2014. Limited visualization of the ovaries. Right ovary grossly measures 3.0 x 3.0 x 2.6 cm. Left ovary grossly measures 3.3 x 2.4 x 2.3 cm. No mass or dominant cyst is observed. Satisfactory color Doppler flow and spectral waveform is detected on the right; insufficient visualization on the left. No adnexal mass. No pelvic free fluid. at 1104 Reported and signed by: Jacklyn De Leon D.O. CC: Hesham Acuña MD; Vicente Bui MD Technologist: GILBERT LUCAS Trnscb Date/Time: 11/07/2018 (1104) [email or web address] Orig Print D/T: S: 11/07/2018 (1110) Probe: [id number] PAGE 1 Signed Report - DUP AB/PEL/SC [id number] 11:04:00 Name: ANGELA ESPINOSA [facility] : 1975 Age/S: 42 / F [address] [facility] Unit #: [id number] Loc: [place] [address] Phys: Hesham Acuña MD Acct: [id number] Dis Date: Status: REG ER PHONE #: [phone] Exam Date: 11/07/2018 1036 FAX #: [phone] Reason: PELVIC PAIN EXAMS: CPT CODE: [id number] DUP AB/PEL/SC COMP 43812 HISTORY: Right adnexal pain TECHNIQUE: Static grayscale and color Doppler images from real-time transabdominal sonographic evaluation of the pelvis. Images from endovaginal probe were also acquired for better visualization of endometrial canal and adnexal structures. COMPARISON: CT from earlier today IMPRESSION: Hysterectomy in 2014. Limited visualization of the ovaries. Right ovary grossly measures 3.0 x 3.0 x 2.6 cm. Left ovary grossly measures 3.3 x 2.4 x 2.3 cm. No mass or dominant cyst is observed. Satisfactory color Doppler flow and spectral waveform is detected on the right; insufficient visualization on the left. No adnexal mass. No pelvic free fluid. at 1104 Reported and signed by: Jacklyn De Leon D.O. CC: Hesham Acuña MD; Vicente Bui MD Technologist: GILBERT LUCAS Trnscb Date/Time: 11/07/2018 (1104) [email or web address] Orig Print D/T: S: 11/07/2018 (1110) Probe: PAGE 1 Signed Report - US PELVIS [id number] 11:04:00 Name: ANGELA ESPINOSA [facility] : 1975 Age/S: 42 / F Tari Stallworth Unit #: [id number] Loc: [place], [place] [address] Phys: Hesham Acuña MD Acct: [id number] Dis Date: Status: REG ER PHONE #: [phone] Exam Date: 11/07/2018 1036 FAX #: [phone] Reason: R adnexal pain EXAMS: CPT CODE: [id number] US PELVIS COMPLETE 95671 HISTORY: Right adnexal pain TECHNIQUE: Static grayscale and color Doppler images from real-time transabdominal sonographic evaluation of the pelvis. Images from endovaginal probe were also acquired for better visualization of endometrial canal and adnexal structures. COMPARISON: CT from earlier today IMPRESSION: Hysterectomy in 2013. Limited visualization of the ovaries. Right ovary grossly measures 3.0 x 3.0 x 2.6 cm. Left ovary grossly measures 3.3 x 2.4 x 2.3 cm. No mass or dominant cyst is observed. Satisfactory color Doppler flow and spectral waveform is detected on the right; insufficient visualization on the left. No adnexal mass. No pelvic free fluid. at 1104 Reported and signed by: Jacklyn De Leon D.O. CC: Hesham Acuña MD; Vicente Bui MD Technologist: ANDREW LUCAS Trnscb Date/Time: 11/07/2018 (110 4) t.[email or web address] Orig Print D/T: S: 11/07/2018 (1110) Pro be: PAGE 1 Signed Report URINALYSIS [id number] 09:22:00* Test Item Value Reference Range Interpretation Comments UA COLOR (test code = COLU) COLORLESS YELLOW A UA APPEARANCE (test code = APPU) CLEAR CLEAR UA GLUCOSE DIPSTICK (test code = DGLUU) NEGATIVE mg/dL NEGATIVE UA BILIRUBIN DIPSTICK (test code = BILU) NEGATIVE mg/dL NEGATIVE UA KETONE DIPSTICK (test code = KETU) NEGATIVE mg/dL NEGATIVE UA SPECIFIC GRAVITY (test code = SGU) 1.005 1.001-1.035 UA BLOOD DIPSTICK (test code = MAT) Negative mg/dL NEGATIVE UA PH DIPSTICK (test code = CHARISMA) 6.5 5.0-8.0 UA PROTEIN DIPSTICK (test code = PROU) NEGATIVE mg/dL NEGATIVE UA UROBILINIOGEN DIPSTICK (test code = URO) NORMAL mg/dL NEGATIVE UA NITRITE DIPSTICK (test code = MANDI) NEGATIVE NEGATIVE UA LEUKOCYTE ESTERASE W REFLEX (test code = LEUUR) NEGATIVE Rah/uL NEGATIVE UA WBC (test code = WBCU) 0-5 per HPF 0-5 UA RBC (test code = RBCU) 3-5 #/HPF 0-5 UA EPITHELIAL CELLS (test code = EPIU) MOD per HPF FEW UA BACTERIA (test code = BACU) FEW #/HPF NONE A Urine Source? Clean CatchBASIC METABOLIC [id number] 09:22:00* Test Item Value Reference Range Interpretation Comments SODIUM (test code = NA) 139 mmol/L 136-145 N POTASSIUM (test code = K) 3.7 mmol/L 3.5-5.1 N CHLORIDE (test code = CL) 109.0 mmol/L 98-107 H CARBON DIOXIDE (test code = CO2) 24.0 mmol/L 21-32 N ANION GAP (test code = GAP) 9.7 10-20 L GLUCOSE (test code = GLU) 96 mg/dL 74-106 N BLOOD UREA NITROGEN (test code = BUN) 16 mg/dL 7-18 N GLOMERULAR FILTRATION RATE (test code = GFR) > 60 mL/min >=60 Estimated GFR by using Modified MDRD formula.Chronic kidney disease is defined as either kidney damageor GFR <60 mL/min/1.73 m2 for >3 months. CREATININE (test code = CREAT) 1.00 mg/dL 0.55-1.02 N Note change in reference range due to change in reagent. BUN/CREATININE RATIO (test code = BUN/CREA) 16.0 10-20 N CALCIUM (test code = CA) 8.6 mg/dL 8.5-10.1 N HEPATIC FUNCTION [id number] 09:22:00* Test Item Value Reference Range Interpretation Comments TOTAL PROTEIN (test code = PROT) 6.5 gram/dL 6.4-8.2 N ALBUMIN (test code = ALB) 3.3 g/dL 3.4-5.0 L GLOBULIN (test code = GLOB) 3.2 gram/dL 2.7-4.2 N ALBUMIN/GLOBULIN RATIO (test code = A/G) 1.0 0.75-1.50 N BILIRUBIN TOTAL (test code = BILT) 0.30 mg/dL 0.0-1.0 N BILIRUBIN DIRECT (test code = BILD) 0.07 mg/dL 0.0-0.20 N SGOT/AST (test code = AST) 14 IUnit/L 15-37 L SGPT/ALT (test code = ALT) 28 IUnit/L 12-78 N ALKALINE PHOSPHATASE TOTAL (test code = ALKP) 87 IUnit/L 45-117 N Note change in reference range due to change in reagent. [id number] 09:22:00* Test Item Value Reference Range Interpretation Comments LIPASE (test code = LIP) 125 U/L 73.0-393.0 N HCG SERUM [id number] 09:22:00* Test Item Value Reference Range Interpretation Comments HCG SERUM QUAL (test code = HCGQL) NEGATIVE NEGATIVE This HCGQL test is NOT applicable for MALE patients.Check with nurse about probable order error.If Tumor Marker Test needed, nurse should order test "HCGTU"(Test #550.48058) BASIC METABOLIC [id number] 09:13:00* Test Item Value Reference Range Interpretation Comments SODIUM (test code = NA) mmol/L 136-145 POTASSIUM (test code = K) mmol/L 3.5-5.1 CHLORIDE (test code = CL) mmol/L 98-107 CARBON DIOXIDE (test code = CO2) mmol/L 21-32 ANION GAP (test code = GAP) 10-20 GLUCOSE (test code = GLU) mg/dL 74-106 BLOOD UREA NITROGEN (test code = BUN) mg/dL 7-18 GLOMERULAR FILTRATION RATE (test code = GFR) mL/min >=60 CREATININE (test code = CREAT) mg/dL 0.55-1.02 BUN/CREATININE RATIO (test code = BUN/CREA) 10-20 CALCIUM (test code = CA) mg/dL 8.5-10.1 HEPATIC FUNCTION [id number] 09:13:00* Test Item Value Reference Range Interpretation Comments TOTAL PROTEIN (test code = PROT) gram/dL 6.4-8.2 ALBUMIN (test code = ALB) g/dL 3.4-5.0 GLOBULIN (test code = GLOB) gram/dL 2.7-4.2 ALBUMIN/GLOBULIN RATIO (test code = A/G) 0.75-1.50 BILIRUBIN TOTAL (test code = BILT) mg/dL 0.0-1.0 BILIRUBIN DIRECT (test code = BILD) mg/dL 0.0-0.20 SGOT/AST (test code = AST) IUnit/L 15-37 SGPT/ALT (test code = ALT) IUnit/L 12-78 ALKALINE PHOSPHATASE TOTAL (test code = ALKP) IUnit/L 45-117 [id number] 09:13:00* Test Item Value Reference Range Interpretation Comments LIPASE (test code = LIP) U/L 73.0-393.0 HCG SERUM [id number] 09:13:00* Test Item Value Reference Range Interpretation Comments HCG SERUM QUAL (test code = HCGQL) NEGATIVE NEGATIVE This HCGQL test is NOT applicable for MALE patients.Check with nurse about probable order error.If Tumor Marker Test needed, nurse should order test "HCGTU"(Test #550.41125) BASIC METABOLIC [id number] 09:13:00* Test Item Value Reference Range Interpretation Comments SODIUM (test code = NA) 139 mmol/L 136-145 N POTASSIUM (test code = K) 3.7 mmol/L 3.5-5.1 N CHLORIDE (test code = CL) 109.0 mmol/L 98-107 H CARBON DIOXIDE (test code = CO2) mmol/L 21-32 ANION GAP (test code = GAP) 10-20 GLUCOSE (test code = GLU) mg/dL 74-106 BLOOD UREA NITROGEN (test code = BUN) mg/dL 7-18 GLOMERULAR FILTRATION RATE (test code = GFR) mL/min >=60 CREATININE (test code = CREAT) mg/dL 0.55-1.02 BUN/CREATININE RATIO (test code = BUN/CREA) 10-20 CALCIUM (test code = CA) mg/dL 8.5-10.1 HEPATIC FUNCTION [id number] 09:13:00* Test Item Value Reference Range Interpretation Comments TOTAL PROTEIN (test code = PROT) gram/dL 6.4-8.2 ALBUMIN (test code = ALB) g/dL 3.4-5.0 GLOBULIN (test code = GLOB) gram/dL 2.7-4.2 ALBUMIN/GLOBULIN RATIO (test code = A/G) 0.75-1.50 BILIRUBIN TOTAL (test code = BILT) mg/dL 0.0-1.0 BILIRUBIN DIRECT (test code = BILD) mg/dL 0.0-0.20 SGOT/AST (test code = AST) IUnit/L 15-37 SGPT/ALT (test code = ALT) IUnit/L 12-78 ALKALINE PHOSPHATASE TOTAL (test code = ALKP) IUnit/L 45-117 [id number] 09:13:00* Test Item Value Reference Range Interpretation Comments LIPASE (test code = LIP) U/L 73.0-393.0 HCG SERUM [id number] 09:13:00* Test Item Value Reference Range Interpretation Comments HCG SERUM QUAL (test code = HCGQL) NEGATIVE NEGATIVE This HCGQL test is NOT applicable for MALE patients.Check with nurse about probable order error.If Tumor Marker Test needed, nurse should order test "HCGTU"(Test #550.72037) CBC W/O [id number] 09:05:00* Test Item Value Reference Range Interpretation Comments WHITE BLOOD CELL (test code = WBC) 5.8 K/mm3 4.5-12.5 N RED BLOOD CELL (test code = RBC) 4.39 mill/mm3 3.7-5.2 N HEMOGLOBIN (test code = HGB) 12.9 gram/dL 11.5-15.5 N HEMATOCRIT (test code = HCT) 38.5 % 36.0-46.0 N MEAN CELL VOLUME (test code = MCV) 87.7 fL 80-98 N MEAN CELL HGB (test code = MCH) 29.4 picogram 27.0-33.0 N MEAN CELL HGB CONCETRATION (test code = MCHC) 33.5 gram/dL 33.0-36. 0 N RED CELL DISTRIBUTION WIDTH (test code = RDW) 13.6 % 11.6-16. 2 N PLATELET COUNT (test code = PLT) 219 K/mm3 150-450 N MEAN PLATELET VOLUME (test code = MPV) 9.3 fL 6.7-11.0 N CBC W/O [id number] 09:03:00* Test Item Value Reference Range Interpretation Comments WHITE BLOOD CELL (test code = WBC) K/mm3 4.5-12.5 RED BLOOD CELL (test code = RBC) mill/mm3 3.7-5.2 HEMOGLOBIN (test code = HGB) 12.9 gram/dL 11.5-15.5 N HEMATOCRIT (test code = HCT) 38.5 % 36.0-46.0 N MEAN CELL VOLUME (test code = MCV) fL 80-98 MEAN CELL HGB (test code = MCH) picogram 27.0-33.0 MEAN CELL HGB CONCETRATION (test code = MCHC) gram/dL 33.0-36. 0 RED CELL DISTRIBUTION WIDTH (test code = RDW) % 11.6-16. 2 PLATELET COUNT (test code = PLT) K/mm3 150-450 MEAN PLATELET VOLUME (test code = MPV) fL 6.7-11.0 - CT ABD PELVIS W/O [id number] 08:56:00 Name: ANGELA ESPINOSA [facility] : 1975 Age/S: 42 / F [address] [facility] Unit #: [id number] Loc: [place] [address] Phys: Hesham Acuña MD Acct: [id number] Dis Date: Status: REG ER PHONE #: [phone] Exam Date: 11/07/2018 0845 FAX #: [phone] Reason: RLQ pain EXAMS: CPT CODE: [id number] CT ABD PELVIS W/O CONT 70085 HISTORY: RLQ pain TECHNIQUE: 5mm axial CT images were obtained through the abdomen and pelvis without contrast. Sagittal and coronal reformatted images were generated. Automated exposure control for dose reduction. COMPARISON: 08/12/18 FINDINGS: Mild dependent subsegmental atelectasis. Normal heart size. Cholecystectomy. Fatty infiltration of the liver. Pancreas, spleen, adrenal glands are unremarkable. Mild bilateral renal scarring. Bilateral 1-2 mm calyceal calculi. No ureteral calculus or hydronephrosis. Limited evaluation the GI tract without oral contrast. Stomach, small bowel, appendix, and colon are unremarkable. No free air or free fluid. No lymphadenopathy. Abdominal aorta is normal in caliber. Urinary bladder is unremarkable. Hysterectomy. No pelvic free fluid. Degenerative changes of the spine, sacroiliac joints, and hips. IMPRESSION: No acute findings on noncontrast CT of the abdomen/pelvis. Bilateral 1-2 mm calyceal calculi. No ureteral calculus or hy dronephrosis. at 0856 Reported and signed by: Jacklyn De Leon D.O. PAGE 1 Signed Report (CONTINUED) Na me: ANGELA ESPINOSA [facility] : Age/S: 42 / F [address] [facility] Unit #: [id number] Loc: [place] [address] Phys: Cedric Acuña MD Acct: [id number] Dis Da te: Status: REG ER PHONE #: [phone] Exam Date: 11/07/2018 0845 FAX #: [phone] Reason: RLQ pain EXAMS: CPT CODE: [id number] CT ABD PELVIS W/O CONT 95766 <Continued> CC: Hesham Acuña MD; Vicente Bui MD Technologist:Gloria Michael RT(R),CT CTDI: DLP: Trnscb Date/Time: 11/07/2018 (0856) [id number] Orig Print D/T: S: 11/07/2018 (0859) PAGE 2 Signed Report BASIC METABOLIC [id number] 12:15:00* Test Item Value Reference Range Interpretation Comments SODIUM (test code = NA) 142 mmol/L 136-145 N POTASSIUM (test code = K) 3.6 mmol/L 3.5-5.1 N CHLORIDE (test code = CL) 112.0 mmol/L 98-107 H CARBON DIOXIDE (test code = CO2) 24.0 mmol/L 21-32 N ANION GAP (test code = GAP) 9.6 10-20 L GLUCOSE (test code = GLU) 78 mg/dL 74-106 N BLOOD UREA NITROGEN (test code = BUN) 8 mg/dL 7-18 N GLOMERULAR FILTRATION RATE (test code = GFR) > 60 mL/min >=60 Estimated GFR by using Modified MDRD formula.Chronic kidney disease is defined as either kidney damageor GFR <60 mL/min/1.73 m2 for >3 months. CREATININE (test code = CREAT) 0.70 mg/dL 0.55-1.02 N Note change in reference range due to change in reagent. BUN/CREATININE RATIO (test code = BUN/CREA) 11.4 10-20 N CALCIUM (test code = CA) 8.2 mg/dL 8.5-10.1 L BASIC METABOLIC [id number] 12:09:00* Test Item Value Reference Range Interpretation Comments SODIUM (test code = NA) 142 mmol/L 136-145 N POTASSIUM (test code = K) 3.6 mmol/L 3.5-5.1 N CHLORIDE (test code = CL) 112.0 mmol/L 98-107 H CARBON DIOXIDE (test code = CO2) mmol/L 21-32 ANION GAP (test code = GAP) 10-20 GLUCOSE (test code = GLU) mg/dL 74-106 BLOOD UREA NITROGEN (test code = BUN) mg/dL 7-18 GLOMERULAR FILTRATION RATE (test code = GFR) mL/min >=60 CREATININE (test code = CREAT) mg/dL 0.55-1.02 BUN/CREATININE RATIO (test code = BUN/CREA) 10-20 CALCIUM (test code = CA) mg/dL 8.5-10.1 CBC W/AUTO [id number] 11:38:00* Test Item Value Reference Range Interpretation Comments WHITE BLOOD CELL (test code = WBC) 5.3 K/mm3 4.5-12.5 N RED BLOOD CELL (test code = RBC) 4.29 mill/mm3 3.7-5.2 N HEMOGLOBIN (test code = HGB) 12.4 gram/dL 11.5-15.5 N HEMATOCRIT (test code = HCT) 36.9 % 36.0-46.0 N MEAN CELL VOLUME (test code = MCV) 86.0 fL 80-98 N MEAN CELL HGB (test code = MCH) 28.9 picogram 27.0-33.0 N MEAN CELL HGB CONCETRATION (test code = MCHC) 33.6 gram/dL 33.0-36. 0 N RED CELL DISTRIBUTION WIDTH (test code = RDW) 13.6 % 11.6-16. 2 N RED CELL DISTRIBUTION WIDTH SD (test code = RDW-SD) 42.0 fL 37 .0-51.0 N PLATELET COUNT (test code = PLT) 269 K/mm3 150-450 N MEAN PLATELET VOLUME (test code = MPV) 9.4 fL 6.7-11.0 N NEUTROPHIL % (test code = NT%) 59.4 % 39.0-69.0 N IMMATURE GRANULOCYTE % (test code = IG%) 0.2 % 0.0-5.0 N LYMPHOCYTE % (test code = LY%) 32.1 % 25.0-55.0 N MONOCYTE % (test code = MO%) 5.6 % 0.0-10.0 N EOSINOPHIL % (test code = EO%) 1.9 % 0.0-5.0 N BASOPHIL % (test code = BA%) 0.8 % 0.0-1.0 N NUCLEATED RBC % (test code = NRBC%) 0.0 % 0-0 N NEUTROPHIL # (test code = NT#) 3.16 K/mm3 1.8-7.7 N IMMATURE GRANULOCYTE # (test code = IG#) 0.01 x10 3/uL 0-0.03 N LYMPHOCYTE # (test code = LY#) 1.71 K/mm3 1.0-5.0 N MONOCYTE # (test code = MO#) 0.30 K/mm3 0-0.8 N EOSINOPHIL # (test code = EO#) 0.10 K/mm3 0.0-0.5 N BASOPHIL # (test code = BA#) 0.04 K/mm3 0.0-0.2 N NUCLEATED RBC # (test code = NRBC#) 0.00 K/mm3 0.0-0.1 N MANUAL DIFF REQUIRED (test code = MDIFF) NO CBC W/AUTO [id number] 11:32:00* Test Item Value Reference Range Interpretation Comments WHITE BLOOD CELL (test code = WBC) K/mm3 4.5-12.5 RED BLOOD CELL (test code = RBC) mill/mm3 3.7-5.2 HEMOGLOBIN (test code = HGB) 12.4 gram/dL 11.5-15.5 N HEMATOCRIT (test code = HCT) 36.9 % 36.0-46.0 N MEAN CELL VOLUME (test code = MCV) fL 80-98 MEAN CELL HGB (test code = MCH) picogram 27.0-33.0 MEAN CELL HGB CONCETRATION (test code = MCHC) gram/dL 33.0-36. 0 RED CELL DISTRIBUTION WIDTH (test code = RDW) % 11.6-16. 2 RED CELL DISTRIBUTION WIDTH SD (test code = RDW-SD) fL 37 .0-51.0 PLATELET COUNT (test code = PLT) K/mm3 150-450 MEAN PLATELET VOLUME (test code = MPV) fL 6.7-11.0 NEUTROPHIL % (test code = NT%) % 39.0-69.0 IMMATURE GRANULOCYTE % (test code = IG%) % 0.0-5.0 LYMPHOCYTE % (test code = LY%) % 25.0-55.0 MONOCYTE % (test code = MO%) % 0.0-10.0 EOSINOPHIL % (test code = EO%) % 0.0-5.0 BASOPHIL % (test code = BA%) % 0.0-1.0 NEUTROPHIL # (test code = NT#) K/mm3 1.8-7.7 LYMPHOCYTE # (test code = LY#) K/mm3 1.0-5.0 MONOCYTE # (test code = MO#) K/mm3 0-0.8 EOSINOPHIL # (test code = EO#) K/mm3 0.0-0.5 BASOPHIL # (test code = BA#) K/mm3 0.0-0.2 BASIC METABOLIC [id number] 09:30:00* Test Item Value Reference Range Interpretation Comments SODIUM (test code = NA) 139 mmol/L 136-145 N POTASSIUM (test code = K) 3.7 mmol/L 3.5-5.1 N CHLORIDE (test code = CL) 108.0 mmol/L 98-107 H CARBON DIOXIDE (test code = CO2) 23.0 mmol/L 21-32 N ANION GAP (test code = GAP) 11.7 10-20 N GLUCOSE (test code = GLU) 117 mg/dL 74-106 H BLOOD UREA NITROGEN (test code = BUN) 10 mg/dL 7-18 N GLOMERULAR FILTRATION RATE (test code = GFR) > 60 mL/min >=60 Estimated GFR by using Modified MDRD formula.Chronic kidney disease is defined as either kidney damageor GFR <60 mL/min/1.73 m2 for >3 months. CREATININE (test code = CREAT) 0.80 mg/dL 0.55-1.02 N Note change in reference range due to change in reagent. BUN/CREATININE RATIO (test code = BUN/CREA) 12.5 10-20 N CALCIUM (test code = CA) 8.9 mg/dL 8.5-10.1 N HCG SERUM [id number] 09:30:00* Test Item Value Reference Range Interpretation Comments HCG SERUM QUAL (test code = HCGQL) NEGATIVE NEGATIVE This HCGQL test is NOT applicable for MALE patients.Check with nurse about probable order error.If Tumor Marker Test needed, nurse should order test "HCGTU"(Test #550.44901) [id number] 09:30:00* Test Item Value Reference Range Interpretation Comments TROPONIN-I (test code = TROPI) <0.015 ng/mL 0-0.045 N URINALYSIS [id number] 09:27:00* Test Item Value Reference Range Interpretation Comments UA COLOR (test code = COLU) Light-Yellow YELLOW UA APPEARANCE (test code = APPU) Cloudy CLEAR A UA GLUCOSE DIPSTICK (test code = DGLUU) NEGATIVE mg/dL NEGATIVE UA BILIRUBIN DIPSTICK (test code = BILU) NEGATIVE mg/dL NEGATIVE UA KETONE DIPSTICK (test code = KETU) NEGATIVE mg/dL NEGATIVE UA SPECIFIC GRAVITY (test code = SGU) 1.007 1.001-1.035 UA BLOOD DIPSTICK (test code = MAT) Negative mg/dL NEGATIVE UA PH DIPSTICK (test code = CHARISMA) 6.0 5.0-8.0 UA PROTEIN DIPSTICK (test code = PROU) NEGATIVE mg/dL NEGATIVE UA UROBILINIOGEN DIPSTICK (test code = URO) Normal mg/dL NEGATIVE UA NITRITE DIPSTICK (test code = MANDI) POSITIVE NEGATIVE A UA LEUKOCYTE ESTERASE W REFLEX (test code = LEUUR) NEGATIVE Rah/uL NEGATIVE UA WBC (test code = WBCU) per HPF 0-5 UA RBC (test code = RBCU) per HPF 0-5 UA EPITHELIAL CELLS (test code = EPIU) per HPF Few UA BACTERIA (test code = BACU) per HPF NONE Urine Source? Clean CatchURINALYSIS [id number] 09:27:00* Test Item Value Reference Range Interpretation Comments UA COLOR (test code = COLU) Light-Yellow YELLOW UA APPEARANCE (test code = APPU) Cloudy CLEAR A UA GLUCOSE DIPSTICK (test code = DGLUU) NEGATIVE mg/dL NEGATIVE UA BILIRUBIN DIPSTICK (test code = BILU) NEGATIVE mg/dL NEGATIVE UA KETONE DIPSTICK (test code = KETU) NEGATIVE mg/dL NEGATIVE UA SPECIFIC GRAVITY (test code = SGU) 1.007 1.001-1.035 UA BLOOD DIPSTICK (test code = MAT) Negative mg/dL NEGATIVE UA PH DIPSTICK (test code = CHARISMA) 6.0 5.0-8.0 UA PROTEIN DIPSTICK (test code = PROU) NEGATIVE mg/dL NEGATIVE UA UROBILINIOGEN DIPSTICK (test code = URO) Normal mg/dL NEGATIVE UA NITRITE DIPSTICK (test code = MANDI) POSITIVE NEGATIVE A UA LEUKOCYTE ESTERASE W REFLEX (test code = LEUUR) NEGATIVE Rah/uL NEGATIVE UA WBC (test code = WBCU) 0-5 per HPF 0-5 UA RBC (test code = RBCU) 0-2 #/HPF 0-5 UA EPITHELIAL CELLS (test code = EPIU) MOD per HPF FEW UA BACTERIA (test code = BACU) FEW #/HPF NONE A Urine Source? Clean CatchBASIC METABOLIC [id number] 09:24:00* Test Item Value Reference Range Interpretation Comments SODIUM (test code = NA) 139 mmol/L 136-145 N POTASSIUM (test code = K) 3.7 mmol/L 3.5-5.1 N CHLORIDE (test code = CL) 108.0 mmol/L 98-107 H CARBON DIOXIDE (test code = CO2) mmol/L 21-32 ANION GAP (test code = GAP) 10-20 GLUCOSE (test code = GLU) mg/dL 74-106 BLOOD UREA NITROGEN (test code = BUN) mg/dL 7-18 GLOMERULAR FILTRATION RATE (test code = GFR) mL/min >=60 CREATININE (test code = CREAT) mg/dL 0.55-1.02 BUN/CREATININE RATIO (test code = BUN/CREA) 10-20 CALCIUM (test code = CA) mg/dL 8.5-10.1 HCG SERUM [id number] 09:24:00* Test Item Value Reference Range Interpretation Comments HCG SERUM QUAL (test code = HCGQL) NEGATIVE NEGATIVE This HCGQL test is NOT applicable for MALE patients.Check with nurse about probable order error.If Tumor Marker Test needed, nurse should order test "HCGTU"(Test #550.61017) [id number] 09:24:00* Test Item Value Reference Range Interpretation Comments TROPONIN-I (test code = TROPI) ng/mL 0-0.045 BASIC METABOLIC [id number] 09:22:00* Test Item Value Reference Range Interpretation Comments SODIUM (test code = NA) 139 mmol/L 136-145 N POTASSIUM (test code = K) 3.7 mmol/L 3.5-5.1 N CHLORIDE (test code = CL) 108.0 mmol/L 98-107 H CARBON DIOXIDE (test code = CO2) mmol/L 21-32 ANION GAP (test code = GAP) 10-20 GLUCOSE (test code = GLU) mg/dL 74-106 BLOOD UREA NITROGEN (test code = BUN) mg/dL 7-18 GLOMERULAR FILTRATION RATE (test code = GFR) mL/min >=60 CREATININE (test code = CREAT) mg/dL 0.55-1.02 BUN/CREATININE RATIO (test code = BUN/CREA) 10-20 CALCIUM (test code = CA) mg/dL 8.5-10.1 HCG SERUM [id number] 09:22:00* Test Item Value Reference Range Interpretation Comments HCG SERUM QUAL (test code = HCGQL) NEGATIVE [id number] 09:22:00* Test Item Value Reference Range Interpretation Comments TROPONIN-I (test code = TROPI) ng/mL 0-0.045 CBC W/O [id number] 09:02:00* Test Item Value Reference Range Interpretation Comments WHITE BLOOD CELL (test code = WBC) 10.8 K/mm3 4.5-12.5 N RED BLOOD CELL (test code = RBC) 4.41 mill/mm3 3.7-5.2 N HEMOGLOBIN (test code = HGB) 13.0 gram/dL 11.5-15.5 N HEMATOCRIT (test code = HCT) 38.9 % 36.0-46.0 N MEAN CELL VOLUME (test code = MCV) 88.2 fL 80-98 N MEAN CELL HGB (test code = MCH) 29.5 picogram 27.0-33.0 N MEAN CELL HGB CONCETRATION (test code = MCHC) 33.4 gram/dL 33.0-36. 0 N RED CELL DISTRIBUTION WIDTH (test code = RDW) 13.7 % 11.6-16. 2 N PLATELET COUNT (test code = PLT) 296 K/mm3 150-450 N MEAN PLATELET VOLUME (test code = MPV) 9.5 fL 6.7-11.0 N CBC W/O [id number] 08:59:00* Test Item Value Reference Range Interpretation Comments WHITE BLOOD CELL (test code = WBC) K/mm3 4.5-12.5 RED BLOOD CELL (test code = RBC) mill/mm3 3.7-5.2 HEMOGLOBIN (test code = HGB) 13.0 gram/dL 11.5-15.5 N HEMATOCRIT (test code = HCT) 38.9 % 36.0-46.0 N MEAN CELL VOLUME (test code = MCV) fL 80-98 MEAN CELL HGB (test code = MCH) picogram 27.0-33.0 MEAN CELL HGB CONCETRATION (test code = MCHC) gram/dL 33.0-36. 0 RED CELL DISTRIBUTION WIDTH (test code = RDW) % 11.6-16. 2 PLATELET COUNT (test code = PLT) K/mm3 150-450 MEAN PLATELET VOLUME (test code = MPV) fL 6.7-11.0 Urine [id number] 08:08:00* Test Item Value Reference Range Interpretation Comments Urine Culture (test code = 630-4) Organism: ESCHERICHIA COLI [facility] [id number] 08:08:00* Test Item Value Reference Range Interpretation Comments Urine Culture (test code = 630-4) Organism: [facility]ERICHIA COLI [facility] [id number] 08:08:00* Test Item Value Reference Range Interpretation Comments Urine Culture (test code = 630-4) Organism: ESCHERICHIA COLI [facility] [id number] 08:08:00* Test Item Value Reference Range Interpretation Comments Urine Culture (test code = 630-4) No Result Data Provided [facility] [id number] 08:08:00* Test Item Value Reference Range Interpretation Comments Urine Culture (test code = 630-4) No Result Data Provided [facility] [id number] 09:55:00* Test Item Value Reference Range Interpretation Comments Urine WBC (test code = 5821-4) 6-10 0-5 H [facility] [id number] 09:55:00* Test Item Value Reference Range Interpretation Comments Urine RBC (test code = 12279-7) NONE 0-5 [facility] [id number] 09:55:00* Test Item Value Reference Range Interpretation Comments Urine Bacteria (test code = 16603-7) FEW NONE [facility] Ep[facility]helial [id number] 09:55:00 * Test Item Value Reference Range Interpretation Comments Urine Epithelial Cells (test code = 58086-6) FEW NONE [facility]PELVIS [id number] 09:43:00 [facility] [address] [address] Patient Name: ANGELA ESPINOSA MR #: [id number] : 1975 Age/Sex: 42/F Req #: [id number] Adm Physician: Ordered by: EROS SIDHU MD Report #: [id number] Location: ER Room/Bed: Procedure: [id number] CT/CT ABDOMEN/PELVIS WO Exam Date: 10/01/18 Exam Ti me: 0850 REPORT STATUS: Signed E XAM: CT Abdomen and Pelvis WITHOUT contrast INDICATION: Renal stone. COMPARISON: CT Abdomen/Pelvis 08/05/2018. TECHNIQUE: Abdomen and pelvis we re scanned utilizing a multidetector helical scanner from the lung base to the pubic symphysis without administration of IV contrast. Absence of intravenous contrast decreases sensitivity for detection of focal lesions and vascular pa thology. Coronal and sagittal reformations were obtained. Stone protocol is pe rformed. IV CONTRAST: None. ORAL CONTRAST: Water RADIATION DOSE: Total DLP: 917.3 mGy*cm Dose modulation, iter ative reconstruction, and/or weight based adjustment of the mA/kV was utilized to reduce the radiation dose to as low as reasonably achievable. FINDIN GS: LINES and TUBES: None. LOWER THORAX: Patchy dependent atelectasis. HEPATOBILIARY: Diffuse fatty liver. No focal hepatic lesions. No biliary ductal dilation. Status post cholecystectomy. SPLEEN: No splenomegaly. PANCREAS: No focal masses or ductal dilatation. ADRENALS: No adrenal no dules KIDNEYS/URETERS: No hydronephrosis. No cystic or solid mass lesi ons. There is a 5 mm left mid pole renal stone. Punctate bilateral 1 to 2 mm r enal stones are unchanged. GI TRACT: No abnormal distention, wall thicken ing, or evidence of bowel obstruction. Appendix is normal. PELVIC O RGANS/BLADDER: Status post hysterectomy. The bladder is unremarkable in appear ance. LYMPH NODES: No lymphadenopathy. VESSELS: Unremarkable. PER ITONEUM / RETROPERITONEUM: No free air. Trace pelvic free fluid. BONES/SOFT TISSUES: No acute bony findings. Stable postoperative appearance of the anter ior abdominal wall mesh repair. No evidence of recurrent hernia. IMPRESSION : Bilateral nonobstructing renal stones, measuring up to 5 mm in the left mid pole. Hepatic steatosis. Signed by: Dr. Bonita Asher MD on 019 9:50 AM Dictated By: BONITA ASHER MD 9 Transcribed By: LULU on 10/01/18949 COPY TO: EROS SIDHU MD Urine [id number] 09:03:00* Test Item Value Reference Range Interpretation Comments Urine Color (test code = 5778-6) YELLOW [facility]LLOW [facility] Guqeyyf1038-70-66 09:03:00* Test Item Value Reference Range Interpretation Comments Urine Clarity (test code = 11356-9) SL CLOUDY CLEAR [facility] Specific [id number] 09:03:00 * Test Item Value Reference Range Interpretation Comments Urine Specific [place] (test code = 5811-5) 1.015 1.010-1.02 5 [facility] [id number] 09:03:00* Test Item Value Reference Range Interpretation Comments Urine pH (test code = 01277-9) 6 5-7 [facility] Leukocyte Kzuinpao3055-69-89 09:03:00* Test Item Value Reference Range Interpretation Comments Urine Leukocyte Esterase (test code = 5799-2) TRACE NEGATIVE H [facility] Nfmjviy0522-10-69 09:03:00* Test Item Value Reference Range Interpretation Comments Urine Nitrite (test code = 15574-2) NEGATIVE NEGATIVE [facility] Pwgeaiv0506-40-50 09:03:00* Test Item Value Reference Range Interpretation Comments Urine Protein (test code = 5804-0) NEGATIVE NEGATIVE [facility] Glucose (UA)2018-10-01 09:03:00* Test Item Value Reference Range Interpretation Comments Urine Glucose (UA) (test code = 2349-9) NEGATIVE NEGATIVE [facility] Estytbn2046-62-86 09:03:00* Test Item Value Reference Range Interpretation Comments Urine Ketones (test code = 24976-7) NEGATIVE NEGATIVE [facility] Nabyllwjsrxf1036-60-91 09:03:00* Test Item Value Reference Range Interpretation Comments Urine Urobilinogen (test code = 69740-8) 0.2 0.2-1 [facility] Ojszihvti3469-34-51 09:03:00* Test Item Value Reference Range Interpretation Comments Urine Bilirubin (test code = 1978-6) NEGATIVE NEGATIVE [facility] Uhckq7115-92-59 09:03:00* Test Item Value Reference Range Interpretation Comments Urine Blood (test code = 29072-4) NEGATIVE NEGATIVE [facility] [id number] 17:29:00* Test Item Value Reference Range Interpretation Comments SODIUM (test code = NA) 140 mEq/L 135-145 N POTASSIUM (test code = K) 3.4 mEq/L 3.5-5.0 L CHLORIDE (test code = CL) 104 mEq/L 100-115 N CARBON DIOXIDE (test code = CO2) 27 mEq/L 22-31 N ANION GAP (test code = GAP) 12.40 10-20 N GLUCOSE (test code = GLU) 114 mg/dL 65-110 H BLOOD UREA NITROGEN (test code = BUN) 10 mg/dL 7-18 N GLOMERULAR FILTRATION RATE (test code = GFR) 55 ml/min >60 L CREATININE (test code = CREAT) 1.1 mg/dL 0.5-1.0 H TOTAL PROTEIN (test code = PROT) 5.9 gm/dL 6.3-8.2 L ALBUMIN (test code = ALB) 2.9 gm/dL 3.4-4.8 L CALCIUM (test code = CA) 7.5 mg/dL 8.4-10.2 L BILIRUBIN TOTAL (test code = BILT) 0.2 mg/dL 0.2-1.0 N SGOT/AST (test code = AST) 17 units/L 15-37 N SGPT/ALT (test code = ALT) 28 units/L 12-78 N ALKALINE PHOSPHATASE TOTAL (test code = ALKP) 81 units/L 46-116 N [id number] 17:29:00* Test Item Value Reference Range Interpretation Comments AMYLASE (test code = JANIE) 70 units/L 30-110 N [id number] 17:29:00* Test Item Value Reference Range Interpretation Comments LIPASE (test code = LIP) 168 units/L 73-393 N DRUGS OF ABUSE [id number] 17:29:00* Test Item Value Reference Range Interpretation Comments UR COCAINE (test code = COCAU) NEGATIVE NEGATIVE DETECTION CUT OFF: 150 ng/mL UR CANNABINOIDS (test code = CANU) POSITIVE NEGATIVE A DETECTION CUT OFF: 50 ng/mL UR AMPHETAMINE (test code = AMPHU) NEGATIVE NEGATIVE DETECTION CUT OFF: 500 ng/mL UR BARBITURATE QUAL (test code = BARBQLU) NEGATIVE NEGATIVE DETECTION CUT OFF: 200 ng/mL UR BENZODIAZEPINE (test code = BENZU) POSITIVE NEGATIVE A DETECTION CUT OFF: 150 ng/mL UR OPIATES QUAL (test code = OPIAQLU) POSITIVE NEGATIVE A RESULTS CALLED TO CHELSYREAD BACK & CONFIRMED? YES.BY FSilvaLAB.TTT 09/11/18 8831. DETECTION CUT OFF: 100 ng/mL UR PHENCYCLIDINE (PCP) (test code = PHENCU) NEGATIVE NEGATIVE DETECTION CUT OFF: 25 ng/mL UA RFLX MICR CULT IF [id number] 17:27:00* Test Item Value Reference Range Interpretation Comments UA COLOR (test code = COLU) YELLOW YELLOW UA APPEARANCE (test code = APPU) Slightly-Cloudy CLEAR UA GLUCOSE DIPSTICK (test code = DGLUU) NEGATIVE NEG UA BILIRUBIN DIPSTICK (test code = BILU) NEGATIVE NEG UA KETONE DIPSTICK (test code = KETU) NEGATIVE NEG UA SPECIFIC GRAVITY (test code = SGU) 1.017 1.001-1.035 N UA BLOOD DIPSTICK (test code = MAT) NEG NEG UA PH DIPSTICK (test code = CHARISMA) 5.0 5-9 UA PROTEIN DIPSTICK (test code = PROU) NEGATIVE NEG UA UROBILINIOGEN DIPSTICK (test code = URO) NEGATIVE mg/dL NEG UA NITRITE DIPSTICK (test code = MANDI) NEG NEG UA LEUKOCYTE ESTERASE DIPSTICK (test code = LEUU) NEG NEG UA WBC (test code = WBCU) 6-10 #/hpf NONE SEEN A UA RBC (test code = RBCU) 3-5 #/hpf NONE SEEN A UA EPITHELIAL CELLS (test code = EPIU) MODERATE #/HPF RARE-FEW A UA BACTERIA (test code = BACU) RARE /HPF RARE-FEW UA MUCUS (test code = MUCU) 1+ NONE SEEN CBC W/AUTO [id number] 17:25:00* Test Item Value Reference Range Interpretation Comments WHITE BLOOD CELL (test code = WBC) 7.9 K/mm3 6.6-12.1 N RED BLOOD CELL (test code = RBC) 4.00 M/mm3 3.45-5.01 N HEMOGLOBIN (test code = HGB) 11.6 g/dL 10.7-13.9 N HEMATOCRIT (test code = HCT) 34.5 % 32.1-42.1 N MEAN CELL VOLUME (test code = MCV) 86 fL 84.1-94.8 N MEAN CELL HGB (test code = MCH) 29.0 pg 27-35 N MEAN CELL HGB CONCETRATION (test code = MCHC) 33.6 gm/dL 32.2-34. 1 N RED CELL DISTRIBUTION WIDTH (test code = RDW) 13.6 % 12.4-16. 5 N PLATELET COUNT (test code = PLT) 264 K/mm3 133-385 N MEAN PLATELET VOLUME (test code = MPV) 9.5 fl 9.1-12.7 N NEUTROPHIL % (test code = NT%) 68.7 % 56.5-79.4 N LYMPHOCYTE % (test code = LY%) 22.3 % 14.3-34.3 N MONOCYTE % (test code = MO%) 6.1 % 5.1-10.4 N EOSINOPHIL % (test code = EO%) 1.8 % 0.1-3.0 N BASOPHIL % (test code = BA%) 0.8 % 0.1-1.0 N NEUTROPHIL # (test code = NT#) 5.4 K/mm3 LYMPHOCYTE # (test code = LY#) 1.8 K/mm3 MONOCYTE # (test code = MO#) 0.5 K/mm3 EOSINOPHIL # (test code = EO#) 0.14 K/mm3 BASOPHIL # (test code = BA#) 0.1 K/mm3 RBC MORPHOLOGY REQUIRED (test code = RBCM) NORMAL NORMAL PLATELET MORPHOLOGY REQUIRED (test code = PLTMR) NORMAL YOANA L UR HCG [id number] 16:48:00* Test Item Value Reference Range Interpretation Comments UR HCG QUAL (test code = HCGQLU) NEGATIVE 1. Very dilute urine specimens, as indicated by a lowspecific gravity, may not contain group sales representative levels ofhCG. 2. False negative results may occur when the levels of hCGare below the sensitivity level of the test. If is still suspected, a first morningurine specimen should be collected 48 hours later andtested. CPK-MB [id number] 14:27:00* Test Item Value Reference Range Interpretation Comments CKMB (test code = CKMBT) 0.6 ng/mL 0-3.6 N [id number] 14:27:00* Test Item Value Reference Range Interpretation Comments TROPONIN-I (test code = TROPI) <0.017 ng/mL <0.056 N CPK-MB [id number] 14:03:00* Test Item Value Reference Range Interpretation Comments CKMB (test code = CKMBT) 0.6 ng/mL 0-3.6 N RELATIVE % INDEX (test code = REL%) 0.0-5.0 [id number] 14:03:00* Test Item Value Reference Range Interpretation Comments TROPONIN-I (test code = TROPI) <0.017 ng/mL <0.056 N - XR CHEST 1 [id number] 12:35:00 Patient Name: ANGELA ESPINOSA Unit No: [id number] EXAMS: CPT CODE: [id number] XR CHEST 1 V [id number] EXAMINATION: Chest x-ray 08/28/2018 at 1144 hours. CLINICAL HISTORY: Chest pain. COMPARISON: Chest x-ray 06/01/2018. FINDINGS: A single PA radiograph of the chest is provided for interpretation. The cardiomediastinal silhouette is within normal limits. Subsegmental atelectasis is evident in the right lower lung, left upper lung, and left lower lung. There is no evidence of focal consolidation or pulmonary edema. The visualized osseous structures are within normal limits. IMPRESSION: Bilateral subsegmental atelectasis. at 1235 Reported and signed by: Cheryl Camacho MD CC: Suzanna Villalobos MD; Vicente Quispe MD Technologist: Jarek Reed, RT Trnscrbd D/ (8781) t.[email or web address].[email or web address] Orig Print D/T: S: 08/28/2018 (1762) [facility] NAME: ANGELA ESPINOSA Radiology Department PHYS: Suzanna Rojas MD [address] : 1975 AGE: 42 SEX: F [place], [place] [address] LOC: ALIVIA PHONE #: [phone] EXAM DATE: 08/28/2018 STATUS: REG ER FAX #: [phone] RAD NO: Page 1 Signed Report CHEMISTRY 7 [id number] 12:23:00* Test Item Value Reference Range Interpretation Comments SODIUM (test code = NA) 137 mEq/L 135-145 N POTASSIUM (test code = K) 4.1 mEq/L 3.5-5.0 N CHLORIDE (test code = CL) 103 mEq/L 100-115 N CARBON DIOXIDE (test code = CO2) 25 mEq/L 22-31 N ANION GAP (test code = GAP) 12.70 10-20 N GLUCOSE (test code = GLU) 99 mg/dL 65-110 N BLOOD UREA NITROGEN (test code = BUN) 14 mg/dL 7-18 N GLOMERULAR FILTRATION RATE (test code = GFR) 61 ml/min >60 N CREATININE (test code = CREAT) 1.0 mg/dL 0.5-1.0 N CALCIUM (test code = CA) 8.0 mg/dL 8.4-10.2 L CPK-MB [id number] 12:23:00* Test Item Value Reference Range Interpretation Comments CKMB (test code = CKMBT) <0.5 ng/mL 0-3.6 N [id number] 12:23:00* Test Item Value Reference Range Interpretation Comments TROPONIN-I (test code = TROPI) <0.017 ng/mL <0.056 N CHEMISTRY 7 [id number] 12:22:00* Test Item Value Reference Range Interpretation Comments SODIUM (test code = NA) 137 mEq/L 135-145 N POTASSIUM (test code = K) 4.1 mEq/L 3.5-5.0 N CHLORIDE (test code = CL) 103 mEq/L 100-115 N CARBON DIOXIDE (test code = CO2) 25 mEq/L 22-31 N ANION GAP (test code = GAP) 12.70 10-20 N GLUCOSE (test code = GLU) 99 mg/dL 65-110 N BLOOD UREA NITROGEN (test code = BUN) 14 mg/dL 7-18 N GLOMERULAR FILTRATION RATE (test code = GFR) 61 ml/min >60 N CREATININE (test code = CREAT) 1.0 mg/dL 0.5-1.0 N CALCIUM (test code = CA) 8.0 mg/dL 8.4-10.2 L CPK-MB [id number] 12:22:00* Test Item Value Reference Range Interpretation Comments CKMB (test code = CKMBT) <0.5 ng/mL 0-3.6 N RELATIVE % INDEX (test code = REL%) 0.0-5.0 [id number] 12:22:00* Test Item Value Reference Range Interpretation Comments TROPONIN-I (test code = TROPI) <0.017 ng/mL <0.056 N CBC W/AUTO [id number] 11:41:00* Test Item Value Reference Range Interpretation Comments WHITE BLOOD CELL (test code = WBC) 6.5 K/mm3 6.6-12.1 L RED BLOOD CELL (test code = RBC) 4.32 M/mm3 3.45-5.01 N HEMOGLOBIN (test code = HGB) 12.6 g/dL 10.7-13.9 N HEMATOCRIT (test code = HCT) 37.9 % 32.1-42.1 N MEAN CELL VOLUME (test code = MCV) 88 fL 84.1-94.8 N MEAN CELL HGB (test code = MCH) 29.2 pg 27-35 N MEAN CELL HGB CONCETRATION (test code = MCHC) 33.2 gm/dL 32.2-34. 1 N RED CELL DISTRIBUTION WIDTH (test code = RDW) 13.8 % 12.4-16. 5 N PLATELET COUNT (test code = PLT) 312 K/mm3 133-385 N IMMATURE PLATELET FRACTION (test code = IPF) 1.2 % 0.0-10.8 N MEAN PLATELET VOLUME (test code = MPV) 9.2 fl 9.1-12.7 N NEUTROPHIL % (test code = NT%) 61.7 % 56.5-79.4 N LYMPHOCYTE % (test code = LY%) 28.4 % 14.3-34.3 N MONOCYTE % (test code = MO%) 6.3 % 5.1-10.4 N EOSINOPHIL % (test code = EO%) 2.6 % 0.1-3.0 N BASOPHIL % (test code = BA%) 0.8 % 0.1-1.0 N NEUTROPHIL # (test code = NT#) 4.0 K/mm3 LYMPHOCYTE # (test code = LY#) 1.9 K/mm3 MONOCYTE # (test code = MO#) 0.4 K/mm3 EOSINOPHIL # (test code = EO#) 0.17 K/mm3 BASOPHIL # (test code = BA#) 0.1 K/mm3 RBC MORPHOLOGY REQUIRED (test code = RBCM) NORMAL NORMAL PLATELET MORPHOLOGY REQUIRED (test code = PLTMR) NORMAL YOANA L DRUGS OF ABUSE [id number] 10:07:00* Test Item Value Reference Range Interpretation Comments UR COCAINE (test code = COCAU) NEGATIVE NEGATIVE DETECTION CUT OFF: 150 ng/mL UR CANNABINOIDS (test code = CANU) POSITIVE NEGATIVE A RESULTS CALLED TO ER.READ BACK & CONFIRMED? Y.BY FSilvaLAB.[facility] 08/18/18 1007. DETECTION CUT OFF: 50 ng/mL UR AMPHETAMINE (test code = AMPHU) NEGATIVE NEGATIVE DETECTION CUT OFF: 500 ng/mL UR BARBITURATE QUAL (test code = BARBQLU) NEGATIVE NEGATIVE DETECTION CUT OFF: 200 ng/mL UR BENZODIAZEPINE (test code = BENZU) POSITIVE NEGATIVE A RESULTS CALLED TO ER.READ BACK & CONFIRMED? Y.BY F.LAB.[facility] 08/18/18 1007. DETECTION CUT OFF: 150 ng/mL UR OPIATES QUAL (test code = OPIAQLU) NEGATIVE NEGATIVE DETECTION CUT OFF: 100 ng/mL UR PHENCYCLIDINE (PCP) (test code = PHENCU) NEGATIVE NEGATIVE DETECTION CUT OFF: 25 ng/mL [id number] 10:05:00* Test Item Value Reference Range Interpretation Comments TROPONIN-I (test code = TROPI) <0.017 ng/mL <0.056 N INFLUENZA A B [id number] 09:22:00* Test Item Value Reference Range Interpretation Comments INFLUENZA A PCR (test code = FLUAPCR) NEGATIVE NEGATIVE INFLUENZA B PCR (test code = FLUBPCR) NEGATIVE NEGATIVE COMPREHENSIVE METABOLIC [id number] 08:56:00* Test Item Value Reference Range Interpretation Comments SODIUM (test code = NA) 136 mEq/L 135-145 N POTASSIUM (test code = K) 3.8 mEq/L 3.5-5.0 N CHLORIDE (test code = CL) 101 mEq/L 100-115 N CARBON DIOXIDE (test code = CO2) 25 mEq/L 22-31 N ANION GAP (test code = GAP) 14.10 10-20 N GLUCOSE (test code = GLU) 113 mg/dL 65-110 H BLOOD UREA NITROGEN (test code = BUN) 12 mg/dL 7-18 N GLOMERULAR FILTRATION RATE (test code = GFR) 61 ml/min >60 N CREATININE (test code = CREAT) 1.0 mg/dL 0.5-1.0 N TOTAL PROTEIN (test code = PROT) 7.2 gm/dL 6.3-8.2 N ALBUMIN (test code = ALB) 3.4 gm/dL 3.4-4.8 N CALCIUM (test code = CA) 9.3 mg/dL 8.4-10.2 N BILIRUBIN TOTAL (test code = BILT) 0.3 mg/dL 0.2-1.0 N SGOT/AST (test code = AST) 24 units/L 15-37 N SGPT/ALT (test code = ALT) 58 units/L 12-78 N ALKALINE PHOSPHATASE TOTAL (test code = ALKP) 106 units/L 46-116 N [id number] 08:56:00* Test Item Value Reference Range Interpretation Comments AMYLASE (test code = JANIE) 81 units/L 30-110 N [id number] 08:56:00* Test Item Value Reference Range Interpretation Comments LIPASE (test code = LIP) 188 units/L 73-393 N CBC W/AUTO [id number] 08:36:00* Test Item Value Reference Range Interpretation Comments WHITE BLOOD CELL (test code = WBC) 5.3 K/mm3 6.6-12.1 L RED BLOOD CELL (test code = RBC) 4.63 M/mm3 3.45-5.01 N HEMOGLOBIN (test code = HGB) 13.4 g/dL 10.7-13.9 N HEMATOCRIT (test code = HCT) 40.7 % 32.1-42.1 N MEAN CELL VOLUME (test code = MCV) 88 fL 84.1-94.8 N MEAN CELL HGB (test code = MCH) 28.9 pg 27-35 N MEAN CELL HGB CONCETRATION (test code = MCHC) 32.9 gm/dL 32.2-34. 1 N RED CELL DISTRIBUTION WIDTH (test code = RDW) 14.2 % 12.4-16. 5 N PLATELET COUNT (test code = PLT) 292 K/mm3 133-385 N IMMATURE PLATELET FRACTION (test code = IPF) 0.0 % 0.0-10.8 N MEAN PLATELET VOLUME (test code = MPV) 9.4 fl 9.1-12.7 N NEUTROPHIL % (test code = NT%) 62.7 % 56.5-79.4 N LYMPHOCYTE % (test code = LY%) 26.2 % 14.3-34.3 N MONOCYTE % (test code = MO%) 7.6 % 5.1-10.4 N EOSINOPHIL % (test code = EO%) 2.5 % 0.1-3.0 N BASOPHIL % (test code = BA%) 0.8 % 0.1-1.0 N NEUTROPHIL # (test code = NT#) 3.3 K/mm3 LYMPHOCYTE # (test code = LY#) 1.4 K/mm3 MONOCYTE # (test code = MO#) 0.4 K/mm3 EOSINOPHIL # (test code = EO#) 0.13 K/mm3 BASOPHIL # (test code = BA#) 0.0 K/mm3 RBC MORPHOLOGY REQUIRED (test code = RBCM) NORMAL NORMAL PLATELET MORPHOLOGY REQUIRED (test code = PLTMR) NORMAL YOANA L UA RFLX MICR CULT IF [id number] 08:26:00* Test Item Value Reference Range Interpretation Comments UA COLOR (test code = COLU) STRAW YELLOW UA APPEARANCE (test code = APPU) CLEAR CLEAR UA GLUCOSE DIPSTICK (test code = DGLUU) NEGATIVE NEG UA BILIRUBIN DIPSTICK (test code = BILU) NEGATIVE NEG UA KETONE DIPSTICK (test code = KETU) NEGATIVE NEG UA SPECIFIC GRAVITY (test code = SGU) 1.005 1.001-1.035 N UA BLOOD DIPSTICK (test code = MAT) NEG NEG UA PH DIPSTICK (test code = CHARISMA) 6.0 5-9 UA PROTEIN DIPSTICK (test code = PROU) NEGATIVE NEG UA UROBILINIOGEN DIPSTICK (test code = URO) NEGATIVE mg/dL NEG UA NITRITE DIPSTICK (test code = MANDI) NEG NEG UA LEUKOCYTE ESTERASE DIPSTICK (test code = LEUU) NEG NEG UA WBC (test code = WBCU) 3-5 #/hpf NONE SEEN A UA RBC (test code = RBCU) 0-2 #/hpf NONE SEEN UA EPITHELIAL CELLS (test code = EPIU) RARE #/HPF RARE-FEW UA BACTERIA (test code = BACU) RARE /HPF RARE-FEW UA MUCUS (test code = MUCU) RARE NONE SEEN CBC W/AUTO [id number] 11:03:00* Test Item Value Reference Range Interpretation Comments WHITE BLOOD CELL (test code = WBC) 5.7 K/mm3 3.5-11.0 N RED BLOOD CELL (test code = RBC) 4.08 M/mm3 4.70-6.10 L HEMOGLOBIN (test code = HGB) 11.8 G/DL 10.4-14.9 N HEMATOCRIT (test code = HCT) 35.8 % 31.5-44.1 N MEAN CELL VOLUME (test code = MCV) 87.7 Fl 84.5-98.6 N MEAN CELL HGB (test code = MCH) 28.9 pg 27.0-34.2 N MEAN CELL HGB CONCETRATION (test code = MCHC) 33.0 G/DL 31.5-34. 0 N RED CELL DISTRIBUTION WIDTH (test code = RDW) 14.1 SD 11.5-14. 5 N PLATELET COUNT (test code = PLT) 277.0 K/mm3 150-450 N MEAN PLATELET VOLUME (test code = MPV) 9.40 fL 7.0-10.5 N NEUTROPHIL % (test code = NT%) 65.3 % 40-76 N LYMPHOCYTE % (test code = LY%) 24.4 % 20.5-51.1 N MONOCYTE % (test code = MO%) 6.5 % 1.7-9.3 N EOSINOPHIL % (test code = EO%) 3.3 % 0.0-6.0 N BASOPHIL % (test code = BA%) 0.5 % 0.0-2.0 N NEUTROPHIL # (test code = NT#) 3.72 K/mm3 1.8-7.6 N LYMPHOCYTE # (test code = LY#) 1.4 K/mm3 0.6-3.2 N MONOCYTE # (test code = MO#) 0.4 K/mm3 0.3-1.1 N EOSINOPHIL # (test code = EO#) 0.2 K/mm3 0.0-0.4 N BASOPHIL # (test code = BA#) 0.0 K/mm3 0.0-0.1 N MANUAL DIFF REQUIRED (test code = MDIFF) NO DIFF/SCN CRITERIA BASIC METABOLIC [id number] 10:16:00* Test Item Value Reference Range Interpretation Comments SODIUM (test code = NA) 138 mmol/L 134-147 N POTASSIUM (test code = K) 4.6 mmol/L 3.4-5.0 N CHLORIDE (test code = CL) 106 mmol/L 100-108 N CARBON DIOXIDE (test code = CO2) 27 mmol/L 21-32 N ANION GAP (test code = GAP) 5.0 GAP calc 4.0-15.0 N GLUCOSE (test code = GLU) 86 MG/DL 70-110 N BLOOD UREA NITROGEN (test code = BUN) 15 MG/DL 7-18 N GLOMERULAR FILTRATION RATE (test code = GFR) 58 estGFR >60 L CREATININE (test code = CREAT) 1.1 MG/DL 0.6-1.0 H CALCIUM (test code = CA) 8.5 MG/DL 8.5-10.1 N URINALYSIS [id number] 10:14:00* Test Item Value Reference Range Interpretation Comments UA COLOR (test code = COLU) YELLOW discript YEL/STRAW UA APPEARANCE (test code = APPU) CLEAR discript CLEAR UA GLUCOSE DIPSTICK (test code = DGLUU) NEGATIVE mg/dL NEG UA BILIRUBIN DIPSTICK (test code = BILU) NEGATIVE mg/dL NEG UA KETONE DIPSTICK (test code = KETU) NEGATIVE mg/dL NEG UA SPECIFIC GRAVITY (test code = SGU) 1.010 SG 1.005-1.030 UA BLOOD DIPSTICK (test code = MAT) NEGATIVE mg/DL NEG UA PH DIPSTICK (test code = CHARISMA) 7.5 pH UNITS 5.0-7.0 A UA PROTEIN DIPSTICK (test code = PROU) NEGATIVE mg/dL NEG UA UROBILINIOGEN DIPSTICK (test code = URO) 0.2 mg/dL <2.0 UA NITRITE DIPSTICK (test code = MANDI) NEGATIVE SCREEN NEG UA LEUKOCYTE ESTERASE DIPSTICK (test code = LEUU) NEGATIVE Leuk/mcL NEGATIVE CBC W/AUTO [id number] 10:07:00* Test Item Value Reference Range Interpretation Comments WHITE BLOOD CELL (test code = WBC) 5.7 K/mm3 3.5-11.0 N RED BLOOD CELL (test code = RBC) 4.08 M/mm3 4.70-6.10 L HEMOGLOBIN (test code = HGB) 11.8 G/DL 10.4-14.9 N HEMATOCRIT (test code = HCT) 35.8 % 31.5-44.1 N MEAN CELL VOLUME (test code = MCV) 87.7 Fl 84.5-98.6 N MEAN CELL HGB (test code = MCH) 28.9 pg 27.0-34.2 N MEAN CELL HGB CONCETRATION (test code = MCHC) 33.0 G/DL 31.5-34. 0 N RED CELL DISTRIBUTION WIDTH (test code = RDW) 14.1 SD 11.5-14. 5 N PLATELET COUNT (test code = PLT) 277.0 K/mm3 150-450 N MEAN PLATELET VOLUME (test code = MPV) 9.40 fL 7.0-10.5 N NEUTROPHIL % (test code = NT%) % 40-76 N LYMPHOCYTE % (test code = LY%) % 20.5-51.1 N MONOCYTE % (test code = MO%) % 1.7-9.3 N EOSINOPHIL % (test code = EO%) % 0.0-6.0 N BASOPHIL % (test code = BA%) % 0.0-2.0 N NEUTROPHIL # (test code = NT#) K/mm3 1.8-7.6 N LYMPHOCYTE # (test code = LY#) K/mm3 0.6-3.2 N MONOCYTE # (test code = MO#) K/mm3 0.3-1.1 N EOSINOPHIL # (test code = EO#) K/mm3 0.0-0.4 N BASOPHIL # (test code = BA#) K/mm3 0.0-0.1 N MANUAL DIFF REQUIRED (test code = MDIFF) DIFF/SCN CRITERIA - CT ABD PELVIS W/O [id number] 10:04:00 Name: ANGELA ESPINOSA [facility] Suad : 1975 Age/S: 42 / F [id number] [place] Unit #: [id number] Loc: [place] [address] Phys: Suzanna Villalobos MD Acct: [id number] Dis Date: Status: REG ER PHONE #: [phone] Exam Date: 08/12/2018 0985 FAX #: Reason: hx of renal stones uti EXAMS: CPT: [id number] CT ABD PELVIS W/O CONT [id number] LOCATION: T18 EXAM: CT ABDOMEN AND PELVIS WITHOUT CONTRAST INDICATION: hx of renal stones uti COMPARISON: Abdominal ultrasound May 28, 2019. CT abdomen and pelvis April 06, 2018 TECHNIQUE: Multiple CT images of the abdomen and pelvis were obtained with reconstructions in the coronal and sagittal planes. No intravenous contrast was given. Up-to-date CT equipment and radiation dose reduction techniques were utilized. Automatic exposure control was utilized. FINDINGS: Tiny bilateral dependent pleural effusions present with bibasilar subsegmental atelectasis. Liver and spleen are normal in appearance. Adrenal glands and pancreas normal. Gallbladder removed. Midpole l eft renal stone present measuring 2 mm. Lower pole right renal stone óscar ures 2 mm. There is 1 mm right midpole and left lower pole renal stones p resent. No hydronephrosis or hydroureter seen. There is no ureteral ston e. Urinary bladder is normal in appearance. Uterus is absent. Appendix is normal. No evidence for acute appendicitis. No free air free fluid is present. No bowel obstruction is seen. Abdominal aorta is normal in caliber. IVC is normal. Bones and peripheral soft tissues are normal. IMPRESSION: Right and left renal stones measuring 1 to 2 mm. No hydronephrosis. Urinary bladder is unremarkable. E lectronically Signed by Pillo Ordonez on 08/12/2018 at 1004 Reported and signed by: Jose L Ordonez M.D. CC: Suzanna Villalobos MD; uSzanna Quispe MD Technologist:Lauro Maradiaga, RT(R)(CT); .. CTDI: DLP: Trnscb Date/Time: 08/12/2018 (1004) [email or web address] Orig Print D/T: S: 08/12/2018 (1007) CTDI: DLP: PAGE 1 Signed Report - US RETRO [id number] 09:20:00 Patient Name: ANGELA ESPINOSA Unit No: [id number] EXAMS: CPT CODE: [id number] US RETRO LTD [address] CLINICAL HISTORY: Intense flank pain and hematuria. COMPARISON: July 29, 2018. Real-time ultrasound examination demonstrates that the right kidney measures 11.8 x 6.5 x 6.3 cm. No evidence of hydronephrosis or mass is seen on the right side. A 5 x 3 x 4 mm echogenic focus is present which may represent a small nonobstructing calculus. Right ureteric jet is identified when color Doppler imaging is performed through urinary bladder. Left kidney measures 10.9 x 5.3 x 4.9 cm without hydronephrosis or mass. A 4 x 2 x 4 mm echogenic focus is present in the left kidney which may represent a small nonobstructing calculus. Left ureteric jet is identified when color Doppler imaging is performed through urinary bladder. Urinary bladder appears normal. Visualized portions of aorta and vena cava are within normal limits. IMPRESSION: 1. No evidence of hydronephrosis on either side. Bilateral ureteric jets visualized. 2. Small echogenic focus in its kidney which may represent nonobstructing calyceal calculus. at 0920 Reported and signed by: Erwin Alfonso MD CC: Freddy Lee MD; Vicente Quispe MD Technologist: Melinda Marrufo RDMS Probe: Trnscrbd D/ (0920) Sadiq.YOS Orig Print D/T: S: 08/07/2018 (0924) [facility] NAME: ANGELA ESPINOSA Radiology Department PHYS: [facility] Freddy Lee [address] : 1975 AGE: 42 SEX: F [place], [place] [address] LOC: JessicaERS PHONE #: [phone] EXAM DATE: 08/07/2018 STATUS: REG ER FAX #: [phone] RAD NO: Page 1 Signed Report Patient Name: ANGELA ESPINOSA Unit No: [id number] EXAMS: CPT CODE: [id number] RETRO LTD [id number] < Continued> [facility] NAME: ANGELA ESPINOSA Radiology Department PHYS: Freddy Gandhi [id number] : 1975 AGE: 42 SEX: F [place], [place] [address] LOC: JessicaERS PHONE #: [phone] EXAM DATE: 08/07/2018 STATUS: REG ER FAX #: [phone] RAD NO: Page 2 Signed Report COMPREHENSIVE METABOLIC [id number] 08:47:00* Test Item Value Reference Range Interpretation Comments SODIUM (test code = NA) 138 mEq/L 135-145 N POTASSIUM (test code = K) 3.9 mEq/L 3.5-5.0 N CHLORIDE (test code = CL) 104 mEq/L 100-115 N CARBON DIOXIDE (test code = CO2) 27 mEq/L 22-31 N ANION GAP (test code = GAP) 11.30 10-20 N GLUCOSE (test code = GLU) 103 mg/dL 65-110 N BLOOD UREA NITROGEN (test code = BUN) 15 mg/dL 7-18 N GLOMERULAR FILTRATION RATE (test code = GFR) 42 ml/min >60 L CREATININE (test code = CREAT) 1.4 mg/dL 0.5-1.0 H TOTAL PROTEIN (test code = PROT) 6.2 gm/dL 6.3-8.2 L ALBUMIN (test code = ALB) 3.0 gm/dL 3.4-4.8 L CALCIUM (test code = CA) 8.5 mg/dL 8.4-10.2 N BILIRUBIN TOTAL (test code = BILT) 0.2 mg/dL 0.2-1.0 N SGOT/AST (test code = AST) 23 units/L 15-37 N SGPT/ALT (test code = ALT) 34 units/L 12-78 N ALKALINE PHOSPHATASE TOTAL (test code = ALKP) 101 units/L 46-116 N DRUGS OF ABUSE [id number] 08:44:00* Test Item Value Reference Range Interpretation Comments UR COCAINE (test code = COCAU) NEGATIVE NEGATIVE DETECTION CUT OFF: 150 ng/mL UR CANNABINOIDS (test code = CANU) POSITIVE NEGATIVE A RESULTS CALLED TO WILMA CORRAL BACK & CONFIRMED? [employer].KG 08/07/1841. DETECTION CUT OFF: 50 ng/mL UR AMPHETAMINE (test code = AMPHU) NEGATIVE NEGATIVE DETECTION CUT OFF: 500 ng/mL UR BARBITURATE QUAL (test code = BARBQLU) NEGATIVE NEGATIVE DETECTION CUT OFF: 200 ng/mL UR BENZODIAZEPINE (test code = BENZU) POSITIVE NEGATIVE A RESULTS CALLED TO WILMA CORRAL BACK & CONFIRMED? [employer].KG 08/07/1841. DETECTION CUT OFF: 150 ng/mL UR OPIATES QUAL (test code = OPIAQLU) POSITIVE NEGATIVE A RESULTS CALLED TO WILMA CORRAL BACK & CONFIRMED? [employer].KG 08/07/1841. DETECTION CUT OFF: 100 ng/mL UR PHENCYCLIDINE (PCP) (test code = PHENCU) NEGATIVE NEGATIVE DETECTION CUT OFF: 25 ng/mL CBC W/AUTO [id number] 08:38:00* Test Item Value Reference Range Interpretation Comments WHITE BLOOD CELL (test code = WBC) 9.1 K/mm3 6.6-12.1 N RED BLOOD CELL (test code = RBC) 4.15 M/mm3 3.45-5.01 N HEMOGLOBIN (test code = HGB) 12.2 g/dL 10.7-13.9 N HEMATOCRIT (test code = HCT) 36.4 % 32.1-42.1 N MEAN CELL VOLUME (test code = MCV) 88 fL 84.1-94.8 N MEAN CELL HGB (test code = MCH) 29.4 pg 27-35 N MEAN CELL HGB CONCETRATION (test code = MCHC) 33.5 gm/dL 32.2-34. 1 N RED CELL DISTRIBUTION WIDTH (test code = RDW) 13.7 % 12.4-16. 5 N PLATELET COUNT (test code = PLT) 288 K/mm3 133-385 N IMMATURE PLATELET FRACTION (test code = IPF) 0.0 % 0.0-10.8 N MEAN PLATELET VOLUME (test code = MPV) 9.1 fl 9.1-12.7 N NEUTROPHIL % (test code = NT%) 75.7 % 56.5-79.4 N LYMPHOCYTE % (test code = LY%) 15.7 % 14.3-34.3 N MONOCYTE % (test code = MO%) 6.3 % 5.1-10.4 N EOSINOPHIL % (test code = EO%) 1.4 % 0.1-3.0 N BASOPHIL % (test code = BA%) 0.6 % 0.1-1.0 N NEUTROPHIL # (test code = NT#) 6.9 K/mm3 LYMPHOCYTE # (test code = LY#) 1.4 K/mm3 MONOCYTE # (test code = MO#) 0.6 K/mm3 EOSINOPHIL # (test code = EO#) 0.13 K/mm3 BASOPHIL # (test code = BA#) 0.1 K/mm3 RBC MORPHOLOGY REQUIRED (test code = RBCM) NORMAL NORMAL PLATELET MORPHOLOGY REQUIRED (test code = PLTMR) NORMAL YOANA L UA RFLX MICR CULT IF VURRDYFPY2687-81-46 08:29:00* Test Item Value Reference Range Interpretation Comments UA COLOR (test code = COLU) YELLOW YELLOW UA APPEARANCE (test code = APPU) Slightly-Cloudy CLEAR UA GLUCOSE DIPSTICK (test code = DGLUU) NEGATIVE NEG UA BILIRUBIN DIPSTICK (test code = BILU) NEGATIVE NEG UA KETONE DIPSTICK (test code = KETU) NEGATIVE NEG UA SPECIFIC GRAVITY (test code = SGU) 1.004 1.001-1.035 N UA BLOOD DIPSTICK (test code = MAT) NEG NEG UA PH DIPSTICK (test code = CHARISMA) 7.0 5-9 UA PROTEIN DIPSTICK (test code = PROU) NEGATIVE NEG UA UROBILINIOGEN DIPSTICK (test code = URO) NEGATIVE mg/dL NEG UA NITRITE DIPSTICK (test code = MANDI) NEG NEG UA LEUKOCYTE ESTERASE DIPSTICK (test code = LEUU) NEG NEG UA WBC (test code = WBCU) 0-2 #/hpf NONE SEEN UA RBC (test code = RBCU) 0-2 #/hpf NONE SEEN UA EPITHELIAL CELLS (test code = EPIU) MODERATE #/HPF RARE-FEW A UA BACTERIA (test code = BACU) RARE /HPF RARE-FEW UA MUCUS (test code = MUCU) RARE NONE SEEN CT ABDOMEN/PELVIS [id number] 10:13:00 [place] [address] Patient Name: ANGELA ESPINOSA MR #: [id number] : 1975 Age/Sex: 42/F Req #: [id number] Adm Physician: Ordered by: COLLETTE MARTINEZ MD Report #: [id number] Location: ER Room/Bed: Procedure: [id number] CT/CT ABDOMEN/PELVIS WO Exam Date: 08/05/18 Héctor mora Time: 0915 REPORT STATUS: Signed EXAM: CT Abdomen and Pelvis WITHOUT contrast INDICATION: Left flank pa in with hematuria. History of renal stones. COMPARISON: CT abdomen and pelv is dated 06/03/2018 TECHNIQUE: Abdomen and pelvis were scanned utilizing a mu ltidetector helical scanner from the lung base to the pubic symphysis without administration of IV contrast. Absence of intravenous contrast decreases sensi tivity for detection of focal lesions and vascular pathology. Coronal and sagi ttal reformations were obtained. Renal stone protocol was utilized IV CONTRAST: None. ORAL CONTRAST: None RADIATI ON DOSE: Total DLP: 814.71 mGy*cm Dose modulation, iterative reconstruction and/or weight based adjustment of the mA/kV was utilized to reduce the radiat ion dose to as low as reasonably achievable. FINDINGS: LINES and TUBES : None. LOWER THORAX: Unremarkable. HEPATOBILIARY: Diffuse fatty live r. No focal hepatic lesions. No biliary ductal dilation. Gallbladder is absen t. SPLEEN: No splenomegaly. PANCREAS: No focal masses or ductal dilat ation. ADRENALS: No adrenal nodules KIDNEYS/URETERS: No hydrone phrosis. No cystic or solid mass lesions. There are at least 2 small less antonio n 2 mm in size right renal stones that are nonobstructing. There are at least 3 small left renal stones that are nonobstructing with the largest measuring 4 .9 mm. GI TRACT: No abnormal distention, wall thickening, or evidence of b owel obstruction. Appendix is normal. PELVIC ORGANS/BLADDER: Status post hysterectomy. The bladder is unremarkable in appearance. LYMPH NODE S: No lymphadenopathy. VESSELS: Unremarkable. PERITONEUM / RETROPERITO NEUM: No free air. Trace pelvic free fluid. BONES/SOFT TISSUES: No acute pamella ny findings. Stable postoperative appearance of the anterior abdominal wall me sh repair. No evidence of recurrent hernia. IMPRESSION: 1. Bilateral nonobstructing nephrolithiasis. 2. Mild diffuse hepatic steatosis without e vidence of a mass. Signed by: Dr. Lisa Sales DO on 08/05/2018 10:37 A M Dictated By: LISA SALES DO 1037 Transcribed By: LULU on 08/05/18 1037 COPY TO: COLLETTE DUDLEY MD Sodium Apeqm3081-87-78 09:43:00* Test Item Value Reference Range Interpretation Comments Sodium Level (test code = 2951-2) 135 136-145 L [facility] Pfwyj3730-04-08 09:43:00* Test Item Value Reference Range Interpretation Comments Potassium Level (test code = 2823-3) 3.5 3.5-5.1 [facility] HospitalChloride Jfmim3783-17-83 09:43:00* Test Item Value Reference Range Interpretation Comments Chloride Level (test code = 2075-0) 106 98-107 [facility] HospitalCarbon Dioxide Dfnua7886-13-45 09:43:00* Test Item Value Reference Range Interpretation Comments Carbon Dioxide Level (test code = 8-9) 22 22-29 [facility] HospitalAnion Jww5610-47-72 09:43:00* Test Item Value Reference Range Interpretation Comments Anion Gap (test code = 55455-8) 10.5 8-16 [facility] HospitalBlood Urea Kpsrjsnx4877-04-12 09:43:00* Test Item Value Reference Range Interpretation Comments Blood Urea Nitrogen (test code = 3094-0) 7 7-26 [facility] HospitalCreatinine2019-03-07 09:43:00* Test Item Value Reference Range Interpretation Comments Creatinine (test code = 2160-0) 0.83 0.57-1.11 [facility] HospitalBUN/Creatinine Qpapb0457-43-98 09:43:00* Test Item Value Reference Range Interpretation Comments BUN/Creatinine Ratio (test code = 3097-3) 8 6-25 [facility] HospitalEstimat Glomerular Filtration Rate 2018-08-05 09:43:00* Test Item Value Reference Range Interpretation Comments Estimat Glomerular Filtration Rate (test code = 673652070) > 60 >60 Ranges were taken from the National Kidney Disease Education Program and the [facility] Kidney Foundation literature.Reference ranges:60 or greater: Vvodjr14-96 ( for 3 consecutive months): Chronic kidney disease 15 or less: Kidney failureMemorial Hermann Cypress HospitalGlucose Zzgek1787-93-26 09:43:00* Test Item Value Reference Range Interpretation Comments Glucose Level (test code = IZQ3442) 114 74-118 [facility] HospitalCalcium Dnftv1581-79-17 09:43:00* Test Item Value Reference Range Interpretation Comments Calcium Level (test code = 27383-8) 8.6 8.4-10.2 [facility] HospitalTotal Llkhpzupk1057-69-17 09:43:00* Test Item Value Reference Range Interpretation Comments Total Bilirubin (test code = 1975-2) 0.2 0.2-1.2 [facility] HospitalAspartate Amino Transf (AST/SGOT) 2018-08-05 09:43:00* Test Item Value Reference Range Interpretation Comments Aspartate Amino Transf (AST/SGOT) (test code = Aspartate Amino Transf (AST/SGOT)) 16 5-34 [facility] HospitalAlanine Aminotransferase (ALT/SGPT) 2018-08-05 09:43:00* Test Item Value Reference Range Interpretation Comments Alanine Aminotransferase (ALT/SGPT) (test code = 1742-6) 21 0-55 [facility] HospitalTotal Evhnqxf3745-44-50 09:43:00* Test Item Value Reference Range Interpretation Comments Total Protein (test code = 2885-2) 6.0 6.5-8.1 L [facility] HospitalAlbumin2019-03-07 09:43:00* Test Item Value Reference Range Interpretation Comments Albumin (test code = 1751-7) 3.2 3.5-5.0 L [facility] HospitalGlobulin2019-03-07 09:43:00* Test Item Value Reference Range Interpretation Comments Globulin (test code = 85045-8) 2.8 2.3-3.5 [facility] HospitalAlbumin/Globulin Pkkwk2745-75-77 09:43:00 * Test Item Value Reference Range Interpretation Comments Albumin/Globulin Ratio (test code = 1759-0) 1.1 0.8-2.0 [facility] HospitalAlkaline Dviefcgkxsh9718-07-69 09:43:00* Test Item Value Reference Range Interpretation Comments Alkaline Phosphatase (test code = 6768-6) 83 40-150 [facility] HospitalLipase2019-03-07 09:43:00* Test Item Value Reference Range Interpretation Comments Lipase (test code = 3040-3) 29 8-78 [facility] Ynscj5272-94-14 09:43:00* Test Item Value Reference Range Interpretation Comments Sodium Level (test code = 2951-2) 135 136-145 L [facility] HospitalPotassium Uqezm5716-96-15 09:43:00* Test Item Value Reference Range Interpretation Comments Potassium Level (test code = 2823-3) 3.5 3.5-5.1 [facility] HospitalChloride Vainh9871-18-98 09:43:00* Test Item Value Reference Range Interpretation Comments Chloride Level (test code = 2075-0) 106 98-107 [facility] HospitalCarbon Dioxide Umebs6981-65-37 09:43:00* Test Item Value Reference Range Interpretation Comments Carbon Dioxide Level (test code = 8-9) 22 22-29 [facility] HospitalAnion Nxv3904-90-42 09:43:00* Test Item Value Reference Range Interpretation Comments Anion Gap (test code = 17666-4) 10.5 8-16 [facility] HospitalBlood Urea Wxxzqrqi4589-18-68 09:43:00* Test Item Value Reference Range Interpretation Comments Blood Urea Nitrogen (test code = 3094-0) 7 7-26 [facility] HospitalCreatinine2019-03-07 09:43:00* Test Item Value Reference Range Interpretation Comments Creatinine (test code = 2160-0) 0.83 0.57-1.11 [facility] HospitalBUN/Creatinine Hlrnq8114-17-70 09:43:00* Test Item Value Reference Range Interpretation Comments BUN/Creatinine Ratio (test code = 3097-3) 8 6-25 [facility] HospitalEstimat Glomerular Filtration Rate 2018-08-05 09:43:00* Test Item Value Reference Range Interpretation Comments Estimat Glomerular Filtration Rate (test code = 853003000) > 60 >60 Ranges were taken from the National Kidney Disease Education Program and the [facility] Foundation literature.Reference ranges:60 or greater: Gcwllq38-95 ( for 3 consecutive months): Chronic kidney disease 15 or less: Kidney failureMemorial Hermann Cypress HospitalGlucose Vhcew9921-16-31 09:43:00* Test Item Value Reference Range Interpretation Comments Glucose Level (test code = PYO5191) 114 74-118 [facility] HospitalCalcium Lxdds3412-44-60 09:43:00* Test Item Value Reference Range Interpretation Comments Calcium Level (test code = 52437-1) 8.6 8.4-10.2 [facility] HospitalTotal Izjnqdrbl0027-02-01 09:43:00* Test Item Value Reference Range Interpretation Comments Total Bilirubin (test code = 1975-2) 0.2 0.2-1.2 [facility] HospitalAspartate Amino Transf (AST/SGOT) 2018-08-05 09:43:00* Test Item Value Reference Range Interpretation Comments Aspartate Amino Transf (AST/SGOT) (test code = Aspartate Amino Transf (AST/SGOT)) 16 5-34 [facility] HospitalAlanine Aminotransferase (ALT/SGPT) 2018-08-05 09:43:00* Test Item Value Reference Range Interpretation Comments Alanine Aminotransferase (ALT/SGPT) (test code = 1742-6) 21 0-55 [facility] HospitalTotal Dchsaos5629-25-27 09:43:00* Test Item Value Reference Range Interpretation Comments Total Protein (test code = 2885-2) 6.0 6.5-8.1 L [facility] HospitalAlbumin2019-03-07 09:43:00* Test Item Value Reference Range Interpretation Comments Albumin (test code = 1751-7) 3.2 3.5-5.0 L [facility] HospitalGlobulin2019-03-07 09:43:00* Test Item Value Reference Range Interpretation Comments Globulin (test code = 93070-1) 2.8 2.3-3.5 [facility] HospitalAlbumin/Globulin Umkpx3159-84-82 09:43:00 * Test Item Value Reference Range Interpretation Comments Albumin/Globulin Ratio (test code = 1759-0) 1.1 0.8-2.0 [facility] HospitalAlkaline Qlcthmabvlk0654-30-37 09:43:00* Test Item Value Reference Range Interpretation Comments Alkaline Phosphatase (test code = 6768-6) 83 40-150 [facility] HospitalLipase2019-03-07 09:43:00* Test Item Value Reference Range Interpretation Comments Lipase (test code = 3040-3) 29 8-78 [facility] Dfelq1146-42-25 09:43:00* Test Item Value Reference Range Interpretation Comments Sodium Level (test code = 2951-2) 135 136-145 L [facility] HospitalPotassium Uvqgh3351-09-71 09:43:00* Test Item Value Reference Range Interpretation Comments Potassium Level (test code = 2823-3) 3.5 3.5-5.1 [facility] HospitalChloride Sazur0709-64-03 09:43:00* Test Item Value Reference Range Interpretation Comments Chloride Level (test code = 2075-0) 106 98-107 [facility] HospitalCarbon Dioxide Rjaob8286-17-71 09:43:00* Test Item Value Reference Range Interpretation Comments Carbon Dioxide Level (test code = 2028-9) 22 22-29 [facility] HospitalAnion Zzz3558-61-72 09:43:00* Test Item Value Reference Range Interpretation Comments Anion Gap (test code = 23358-2) 10.5 8-16 [facility] HospitalBlood Urea Raiqtenk9150-75-85 09:43:00* Test Item Value Reference Range Interpretation Comments Blood Urea Nitrogen (test code = 3094-0) 7 7-26 [facility] HospitalCreatinine2019-03-07 09:43:00* Test Item Value Reference Range Interpretation Comments Creatinine (test code = 2160-0) 0.83 0.57-1.11 [facility] HospitalBUN/Creatinine Lazky9092-08-35 09:43:00* Test Item Value Reference Range Interpretation Comments BUN/Creatinine Ratio (test code = 3097-3) 8 6-25 [facility] HospitalEstimat Glomerular Filtration Rate 2018-08-05 09:43:00* Test Item Value Reference Range Interpretation Comments Estimat Glomerular Filtration Rate (test code = 081547404) > 60 >60 Ranges were taken from the National Kidney Disease Education Program and the [facility] literature.Reference ranges:60 or greater: Kqsqzc83-12 ( for 3 consecutive months): Chronic kidney disease 15 or less: Kidney failureMemorial Hermann Cypress HospitalGlucose Uhqkd9988-56-92 09:43:00* Test Item Value Reference Range Interpretation Comments Glucose Level (test code = GIY4452) 114 74-118 [facility] HospitalCalcium Cdqyt5262-75-08 09:43:00* Test Item Value Reference Range Interpretation Comments Calcium Level (test code = 45551-4) 8.6 8.4-10.2 [facility] HospitalTotal Razeaiffs8477-30-26 09:43:00* Test Item Value Reference Range Interpretation Comments Total Bilirubin (test code = 1975-2) 0.2 0.2-1.2 [facility] HospitalAspartate Amino Transf (AST/SGOT) 2018-08-05 09:43:00* Test Item Value Reference Range Interpretation Comments Aspartate Amino Transf (AST/SGOT) (test code = Aspartate Amino Transf (AST/SGOT)) 16 5-34 [facility] HospitalAlanine Aminotransferase (ALT/SGPT) 2018-08-05 09:43:00* Test Item Value Reference Range Interpretation Comments Alanine Aminotransferase (ALT/SGPT) (test code = 1742-6) 21 0-55 [facility] Itzguoz3655-70-01 09:43:00* Test Item Value Reference Range Interpretation Comments Total Protein (test code = 2885-2) 6.0 6.5-8.1 L [facility] HospitalAlbumin2019-03-07 09:43:00* Test Item Value Reference Range Interpretation Comments Albumin (test code = 1751-7) 3.2 3.5-5.0 L [facility] HospitalGlobulin2019-03-07 09:43:00* Test Item Value Reference Range Interpretation Comments Globulin (test code = 99519-2) 2.8 2.3-3.5 [facility] HospitalAlbumin/Globulin Chjbj9404-38-74 09:43:00 * Test Item Value Reference Range Interpretation Comments Albumin/Globulin Ratio (test code = 1759-0) 1.1 0.8-2.0 [facility] HospitalAlkaline Qzewhmyuozb4284-39-66 09:43:00* Test Item Value Reference Range Interpretation Comments Alkaline Phosphatase (test code = 6768-6) 83 40-150 [facility] HospitalLipase2019-03-07 09:43:00* Test Item Value Reference Range Interpretation Comments Lipase (test code = 3040-3) 29 8-78 [facility] HospitalUrine DWN7124-19-05 09:25:00* Test Item Value Reference Range Interpretation Comments Urine WBC (test code = 5821-4) 6-10 0-5 H [facility] HospitalUrine YCH4859-92-93 09:25:00* Test Item Value Reference Range Interpretation Comments Urine RBC (test code = 09748-7) NONE 0-5 [facility] HospitalUrine Xdyfyyoh6548-73-18 09:25:00* Test Item Value Reference Range Interpretation Comments Urine Bacteria (test code = 38091-9) NONE NONE [facility] HospitalUrine Epithelial Ckltl7280-53-58 09:25:00 * Test Item Value Reference Range Interpretation Comments Urine Epithelial Cells (test code = 31839-9) FEW NONE [facility] HospitalUrine SEO8460-09-44 09:25:00* Test Item Value Reference Range Interpretation Comments Urine WBC (test code = 5821-4) 6-10 0-5 H [facility] HospitalUrine EVL6825-69-02 09:25:00* Test Item Value Reference Range Interpretation Comments Urine RBC (test code = 53906-8) NONE 0-5 [facility] HospitalUrine Sgubvsgw4379-84-57 09:25:00* Test Item Value Reference Range Interpretation Comments Urine Bacteria (test code = 65806-0) NONE NONE [facility] HospitalUrine Epithelial Jbvfs2701-58-25 09:25:00 * Test Item Value Reference Range Interpretation Comments Urine Epithelial Cells (test code = 55082-3) FEW NONE [facility] HospitalUrine Zdaya6698-40-45 09:14:00* Test Item Value Reference Range Interpretation Comments Urine Color (test code = 5778-6) YELLOW YELLOW [facility] HospitalUrine Zobpgxs0170-99-55 09:14:00* Test Item Value Reference Range Interpretation Comments Urine Clarity (test code = 28046-8) CLEAR CLEAR [facility] HospitalUrine Specific Ahowdsz4385-48-84 09:14:00 * Test Item Value Reference Range Interpretation Comments Urine Specific [place] (test code = 5811-5) 1.010 1.010-1.02 5 [facility] HospitalUrine jY9939-64-29 09:14:00* Test Item Value Reference Range Interpretation Comments Urine pH (test code = 45656-9) 6 5-7 [facility] HospitalU[facility] Leukocyte Dzugnbvb7252-95-04 09:14:00* Test Item Value Reference Range Interpretation Comments Urine Leukocyte Esterase (test code = 5799-2) NEGATIVE NEGATIVE [facility] HospitalU[facility] Saukntd6531-27-99 09:14:00* Test Item Value Reference Range Interpretation Comments Urine Nitrite (test code = 08075-0) NEGATIVE NEGATIVE [facility] HospitalUrine Ochnzxp9295-67-05 09:14:00* Test Item Value Reference Range Interpretation Comments Urine Protein (test code = 5804-0) NEGATIVE NEGATIVE [facility] HospitalUrine Glucose (UA)2018-08-05 09:14:00* Test Item Value Reference Range Interpretation Comments Urine Glucose (UA) (test code = 2349-9) NEGATIVE NEGATIVE [facility] HospitalUrine Mhioces5417-00-80 09:14:00* Test Item Value Reference Range Interpretation Comments Urine Ketones (test code = 09729-5) NEGATIVE NEGATIVE [facility] HospitalU[facility] Kdbwgnhpxjnf8302-65-91 09:14:00* Test Item Value Reference Range Interpretation Comments Urine Urobilinogen (test code = 67444-3) 0.2 0.2-1 [facility] HospitalUrine Xfjhbtzql8002-34-73 09:14:00* Test Item Value Reference Range Interpretation Comments Urine Bilirubin (test code = 1978-6) NEGATIVE NEGATIVE [facility] HospitalUrine Vslpx4726-48-40 09:14:00* Test Item Value Reference Range Interpretation Comments Urine Blood (test code = 93083-9) NEGATIVE NEGATIVE [facility] HospitalUrine Wdtfb8233-25-24 09:14:00* Test Item Value Reference Range Interpretation Comments Urine Color (test code = 5778-6) YELLOW YELLOW [facility] HospitalUrine Aunixwt6732-31-95 09:14:00* Test Item Value Reference Range Interpretation Comments Urine Clarity (test code = 28013-7) CLEAR CLEAR [facility] HospitalUrine Specific Kvtmmhi1370-97-01 09:14:00 * Test Item Value Reference Range Interpretation Comments Urine Specific [place] (test code = 5811-5) 1.010 1.010-1.02 5 [facility] HospitalUrine dG3259-37-62 09:14:00* Test Item Value Reference Range Interpretation Comments Urine pH (test code = 84518-9) 6 5-7 [facility] HospitalU[facility] Leukocyte Buxgtimt0538-36-78 09:14:00* Test Item Value Reference Range Interpretation Comments Urine Leukocyte Esterase (test code = 5799-2) NEGATIVE NEGATIVE [facility] HospitalU[facility] Vqmzpwe1926-49-55 09:14:00* Test Item Value Reference Range Interpretation Comments Urine Nitrite (test code = 52814-6) NEGATIVE NEGATIVE [facility] HospitalUrine Izkqgsp4116-25-29 09:14:00* Test Item Value Reference Range Interpretation Comments Urine Protein (test code = 5804-0) NEGATIVE NEGATIVE [facility] HospitalUrine Glucose (UA)2018-08-05 09:14:00* Test Item Value Reference Range Interpretation Comments Urine Glucose (UA) (test code = 2349-9) NEGATIVE NEGATIVE [facility] HospitalUrine Mxtvvaq4601-53-55 09:14:00* Test Item Value Reference Range Interpretation Comments Urine Ketones (test code = 49052-0) NEGATIVE NEGATIVE [facility] HospitalUrine Qwynobbtsbrh3269-17-67 09:14:00* Test Item Value Reference Range Interpretation Comments Urine Urobilinogen (test code = 15173-9) 0.2 0.2-1 [facility] HospitalUrine Djmvdetom0640-84-75 09:14:00* Test Item Value Reference Range Interpretation Comments Urine Bilirubin (test code = 1978-6) NEGATIVE NEGATIVE [facility] HospitalU[facility] Gzkge9535-04-36 09:14:00* Test Item Value Reference Range Interpretation Comments Urine Blood (test code = 26111-3) NEGATIVE NEGATIVE [facility] HospitalWhite Blood Tlnyx2033-76-85 09:13:00* Test Item Value Reference Range Interpretation Comments White Blood Count (test code = 6690-2) 4.72 4.8-10.8 L [facility] HospitalRed Blood Lfudj0691-21-14 09:13:00* Test Item Value Reference Range Interpretation Comments Red Blood Count (test code = 789-8) 4.19 3.6-5.1 [facility] HospitalHemoglobin2019-03-07 09:13:00* Test Item Value Reference Range Interpretation Comments Hemoglobin (test code = 42026-4) 12.1 12.0-16.0 [facility] HospitalHematocrit2019-03-07 09:13:00* Test Item Value Reference Range Interpretation Comments Hematocrit (test code = 4544-3) 36.4 34.2-44.1 [facility] HospitalMean Corpuscular Rudylb2932-24-28 09:13:00* Test Item Value Reference Range Interpretation Comments Mean Corpuscular Volume (test code = 787-2) 86.9 81-99 [facility] HospitalMean Corpuscular Jdzbbbqfwg2954-66-06 09:13:00* Test Item Value Reference Range Interpretation Comments Mean Corpuscular Hemoglobin (test code = 785-6) 28.9 28-32 [facility] HospitalMean Corpuscular Hemoglobin Concent 2018-08-05 09:13:00* Test Item Value Reference Range Interpretation Comments Mean Corpuscular Hemoglobin Concent (test code = 786-4) 33.2 31-35 [facility] HospitalRed Cell Distribution Udafd9940-44-25 09:13:00* Test Item Value Reference Range Interpretation Comments Red Cell Distribution Width (test code = 73598-1) 13.8 11.7 -14.4 [facility] HospitalPlatelet Vtvxn4043-14-11 09:13:00* Test Item Value Reference Range Interpretation Comments Platelet Count (test code = 777-3) 270 140-360 [facility] HospitalNeutrophils (%) (Auto)2018-08-05 09:13:00 * Test Item Value Reference Range Interpretation Comments Neutrophils (%) (Auto) (test code = 31320-2) 65.9 38.7-80.0 [facility] HospitalLymphocytes (%) (Auto)2018-08-05 09:13:00 * Test Item Value Reference Range Interpretation Comments Lymphocytes (%) (Auto) (test code = 736-9) 26.1 18.0-39.1 [facility] HospitalMonocytes (%) (Auto)2018-08-05 09:13:00* Test Item Value Reference Range Interpretation Comments Monocytes (%) (Auto) (test code = 5905-5) 5.5 4.4-11.3 [facility] HospitalEosinophils (%) (Auto)2018-08-05 09:13:00 * Test Item Value Reference Range Interpretation Comments Eosinophils (%) (Auto) (test code = 713-8) 1.9 0.0-6.0 [facility] HospitalBasophils (%) (Auto)2018-08-05 09:13:00* Test Item Value Reference Range Interpretation Comments Basophils (%) (Auto) (test code = 706-2) 0.6 0.0-1.0 [facility] HospitalIM GRANULOCYTES %2018-08-05 09:13:00* Test Item Value Reference Range Interpretation Comments IM GRANULOCYTES % (test code = IM GRANULOCYTES %) 0.0 0.0- 1.0 [facility] HospitalNeutrophils # (Auto)2018-08-05 09:13:00* Test Item Value Reference Range Interpretation Comments Neutrophils # (Auto) (test code = 751-8) 3.1 2.1-6.9 [facility] HospitalLymphocytes # (Auto)2018-08-05 09:13:00* Test Item Value Reference Range Interpretation Comments Lymphocytes # (Auto) (test code = 36825-1) 1.2 1.0-3.2 [facility] HospitalMonocytes # (Auto)2018-08-05 09:13:00* Test Item Value Reference Range Interpretation Comments Monocytes # (Auto) (test code = 742-7) 0.3 0.2-0.8 [facility] (Auto)2018-08-05 09:13:00* Test Item Value Reference Range Interpretation Comments Eosinophils # (Auto) (test code = 711-2) 0.1 0.0-0.4 [facility]Basophils # (Auto)2018-08-05 09:13:00* Test Item Value Reference Range Interpretation Comments Basophils # (Auto) (test code = 704-7) 0.0 0.0-0.1 [facility] HospitalAbsolute Immature Granulocyte (auto 2018-08-05 09:13:00* Test Item Value Reference Range Interpretation Comments Absolute Immature Granulocyte (auto (alexa t code = Absolute Immature Granulocyte (auto) 0 0-0.1 [facility] HospitalWhite Blood [id number] 09:13:00* Test Item Value Reference Range Interpretation Comments White Blood Count (test code = 6690-2) 4.72 4.8-10.8 L [facility] HospitalRed Blood [id number] 09:13:00* Test Item Value Reference Range Interpretation Comments Red Blood Count (test code = 789-8) 4.19 3.6-5.1 [facility]Hemoglobin2019-03-07 09:13:00* Test Item Value Reference Range Interpretation Comments Hemoglobin (test code = 27737-0) 12.1 12.0-16.0 [facility] HospitalHematocrit2019-03-07 09:13:00* Test Item Value Reference Range Interpretation Comments Hematocrit (test code = 4544-3) 36.4 34.2-44.1 [facility] HospitalMean Corpuscular [id number] 09:13:00* Test Item Value Reference Range Interpretation Comments Mean Corpuscular Volume (test code = 787-2) 86.9 81-99 [facility]Mean Corpuscular Vxhdvkqdgh7374-35-31 09:13:00* Test Item Value Reference Range Interpretation Comments Mean Corpuscular Hemoglobin (test code = 785-6) 28.9 28-32 [facility] HospitalMean Corpuscular Hemoglobin Concent 2018-08-05 09:13:00* Test Item Value Reference Range Interpretation Comments Mean Corpuscular Hemoglobin Concent (test code = 786-4) 33.2 31-35 [facility] HospitalRed Cell Distribution [id number] 09:13:00* Test Item Value Reference Range Interpretation Comments Red Cell Distribution Width (test code = 20945-5) 13.8 11.7 -14.4 [facility] HospitalPlatelet [id number] 09:13:00* Test Item Value Reference Range Interpretation Comments Platelet Count (test code = 777-3) 270 140-360 [facility] HospitalNeutrophils (%) (Auto)2018-08-05 09:13:00 * Test Item Value Reference Range Interpretation Comments Neutrophils (%) (Auto) (test code = 53557-8) 65.9 38.7-80.0 [facility] HospitalLymphocytes (%) (Auto)2018-08-05 09:13:00 * Test Item Value Reference Range Interpretation Comments Lymphocytes (%) (Auto) (test code = 736-9) 26.1 18.0-39.1 [facility] HospitalMonocytes (%) (Auto)2018-08-05 09:13:00* Test Item Value Reference Range Interpretation Comments Monocytes (%) (Auto) (test code = 5905-5) 5.5 4.4-11.3 [facility] HospitalEosinophils (%) (Auto)2018-08-05 09:13:00 * Test Item Value Reference Range Interpretation Comments Eosinophils (%) (Auto) (test code = 713-8) 1.9 0.0-6.0 [facility] HospitalBasophils (%) (Auto)2018-08-05 09:13:00* Test Item Value Reference Range Interpretation Comments Basophils (%) (Auto) (test code = 706-2) 0.6 0.0-1.0 [facility] HospitalIM GRANULOCYTES %2018-08-05 09:13:00* Test Item Value Reference Range Interpretation Comments IM GRANULOCYTES % (test code = IM GRANULOCYTES %) 0.0 0.0- 1.0 [facility] HospitalNeutrophils # (Auto)2018-08-05 09:13:00* Test Item Value Reference Range Interpretation Comments Neutrophils # (Auto) (test code = 751-8) 3.1 2.1-6.9 [facility] HospitalLymphocytes # (Auto)2018-08-05 09:13:00* Test Item Value Reference Range Interpretation Comments Lymphocytes # (Auto) (test code = 65428-8) 1.2 1.0-3.2 [facility] HospitalMonocytes # (Auto)2018-08-05 09:13:00* Test Item Value Reference Range Interpretation Comments Monocytes # (Auto) (test code = 742-7) 0.3 0.2-0.8 [facility] HospitalEosinophils # (Auto)2018-08-05 09:13:00* Test Item Value Reference Range Interpretation Comments Eosinophils # (Auto) (test code = 711-2) 0.1 0.0-0.4 [facility] HospitalBasophils # (Auto)2018-08-05 09:13:00* Test Item Value Reference Range Interpretation Comments Basophils # (Auto) (test code = 704-7) 0.0 0.0-0.1 [facility] HospitalAbsolute Immature Granulocyte (auto 2018-08-05 09:13:00* Test Item Value Reference Range Interpretation Comments Absolute Immature Granulocyte (auto (alexa t code = Absolute Immature Granulocyte (auto) 0 0-0.1 [facility] HospitalWhite Blood [id number] 09:13:00* Test Item Value Reference Range Interpretation Comments White Blood Count (test code = 6690-2) 4.72 4.8-10.8 L [facility] HospitalRed Blood Qmwvc2215-35-03 09:13:00* Test Item Value Reference Range Interpretation Comments Red Blood Count (test code = 789-8) 4.19 3.6-5.1 [facility] HospitalHemoglobin2019-03-07 09:13:00* Test Item Value Reference Range Interpretation Comments Hemoglobin (test code = 47835-6) 12.1 12.0-16.0 [facility] HospitalHematocrit2019-03-07 09:13:00* Test Item Value Reference Range Interpretation Comments Hematocrit (test code = 4544-3) 36.4 34.2-44.1 [facility] HospitalMean Corpuscular Fpvdmf6832-70-51 09:13:00* Test Item Value Reference Range Interpretation Comments Mean Corpuscular Volume (test code = 787-2) 86.9 81-99 [facility] HospitalMean Corpuscular Wlskfudbpt0227-23-76 09:13:00* Test Item Value Reference Range Interpretation Comments Mean Corpuscular Hemoglobin (test code = 785-6) 28.9 28-32 [facility] HospitalMean Corpuscular Hemoglobin Concent 2018-08-05 09:13:00* Test Item Value Reference Range Interpretation Comments Mean Corpuscular Hemoglobin Concent (test code = 786-4) 33.2 31-35 [facility] HospitalRed Cell Distribution Jbrav0213-12-51 09:13:00* Test Item Value Reference Range Interpretation Comments Red Cell Distribution Width (test code = 02441-6) 13.8 11.7 -14.4 [facility] HospitalPlatelet [id number] 09:13:00* Test Item Value Reference Range Interpretation Comments Platelet Count (test code = 777-3) 270 140-360 [facility] HospitalNeutrophils (%) (Auto)2018-08-05 09:13:00 * Test Item Value Reference Range Interpretation Comments Neutrophils (%) (Auto) (test code = 97775-2) 65.9 38.7-80.0 [facility] HospitalLymphocytes (%) (Auto)2018-08-05 09:13:00 * Test Item Value Reference Range Interpretation Comments Lymphocytes (%) (Auto) (test code = 736-9) 26.1 18.0-39.1 [facility] HospitalMonocytes (%) (Auto)2018-08-05 09:13:00* Test Item Value Reference Range Interpretation Comments Monocytes (%) (Auto) (test code = 5905-5) 5.5 4.4-11.3 [facility] HospitalEosinophils (%) (Auto)2018-08-05 09:13:00 * Test Item Value Reference Range Interpretation Comments Eosinophils (%) (Auto) (test code = 713-8) 1.9 0.0-6.0 [facility] HospitalBasophils (%) (Auto)2018-08-05 09:13:00* Test Item Value Reference Range Interpretation Comments Basophils (%) (Auto) (test code = 706-2) 0.6 0.0-1.0 [facility] HospitalIM GRANULOCYTES %2018-08-05 09:13:00* Test Item Value Reference Range Interpretation Comments IM GRANULOCYTES % (test code = IM GRANULOCYTES %) 0.0 0.0- 1.0 [facility] HospitalNeutrophils # (Auto)2018-08-05 09:13:00* Test Item Value Reference Range Interpretation Comments Neutrophils # (Auto) (test code = 751-8) 3.1 2.1-6.9 [facility] HospitalLymphocytes # (Auto)2018-08-05 09:13:00* Test Item Value Reference Range Interpretation Comments Lymphocytes # (Auto) (test code = 76828-9) 1.2 1.0-3.2 [facility] HospitalMonocytes # (Auto)2018-08-05 09:13:00* Test Item Value Reference Range Interpretation Comments Monocytes # (Auto) (test code = 742-7) 0.3 0.2-0.8 [facility] HospitalEosinophils # (Auto)2018-08-05 09:13:00* Test Item Value Reference Range Interpretation Comments Eosinophils # (Auto) (test code = 711-2) 0.1 0.0-0.4 [facility] HospitalBasophils # (Auto)2018-08-05 09:13:00* Test Item Value Reference Range Interpretation Comments Basophils # (Auto) (test code = 704-7) 0.0 0.0-0.1 [facility] HospitalAbsolute Immature Granulocyte (auto 2018-08-05 09:13:00* Test Item Value Reference Range Interpretation Comments Absolute Immature Granulocyte (auto (alexa t code = Absolute Immature Granulocyte (auto) 0 0-0.1 [facility]- US PELVIS [id number] 12:27:00 Name: ANGELA ESPINOSA [facility] : 1975 Age/S: 42 / F [address] Unit #: [id number] Loc: PRINCE [place] [address] Phys: Jerri Bryson RESEARCH CLERK Acct: [id number] Di s Date: Status: REG ER PHONE #: Exam Date: 07/29/2018 4801 FAX #: [phone] Reason: RLQ pain, eval ovary EXAMS: CPT CODE: [id number] US PELVIS COM PLETE 58632 EXAM: Pelvic and transvag inal ultrasound and duplex sonography; INFORMATION: Right lower qu adrant pain, evaluate ovaries; TECHNIQUE AND FINDINGS: Trans abdominal and transvaginal grayscale imaging was combined with color Doppl er sonography and spectral analysis. The patient is status post partial hy sterectomy. The ovaries are of normal size and shape and with normal flow pattern on Doppler exam. The right ovary measures 2.1 x 1.5 x 1.4 cm . The left ovary measures 2.3 x 1.5 x 2.1 cm. No solid or cystic adn exal lesions; No abnormal fluid collections within the pelvis. Unrem arkable urinary bladder. IMPRESSION: No evidence of ovar domo lesions or other pathological findings. at 1227 Reported and signed by: Boom Solorio CC: Dany Kaur MD; India Bryson NP Technologist: Veronika Templeton(S)(ARRT) Trnlorettab D ate/Time: 07/29/2018 (8737) Dayna Orig Print D/T: S: 07/29/2018 (7343) Probe: PAGE 1 Signed Report - US TRANSVAGINAL NON [id number] 12:27:00 Name: ANGELA ESPINOSA [facility] : 1975 Age/S: 42 / F [address] Unit #: [id number] Loc: PRINCE [place] [address] Phys: India Bryson RESEARCH CLERK Acct: [id number] Dis Date: Status: REG ER PHONE #: [phone] Exam Date: 07/29/2018 1138 FAX #: [phone] Reason: RLQ pain, eval ovary EXAMS: CPT CODE: [id number] [place] [address] EXAM: Pelvic and transvaginal ultrasound and duplex sonography; INFORMATION: Right lower quadrant pain, evaluate ovaries; TECHNIQUE AND FINDINGS: Transabdominal and transvaginal grayscale imaging was combined with color Doppler sonography and spectral analysis. The patient is status post partial hysterectomy. The ovaries are of normal size and shape and with normal flow pattern on Doppler exam. The right ovary measures 2.1 x 1.5 x 1.4 cm. The left ovary measures 2.3 x 1.5 x 2.1 cm. No solid or cystic adnexal lesions; No abnormal fluid collections within the pelvis. Unremarkable urinary bladder. IMPRESSION: No evidence of ovarian lesions or other pathological findings. at 1227 Reported and signed by: Ismael Mckeon M.D. CC: Dany Kaur MD; India Bryson NP Technologist: Veronika Templeton(S)(ARRT) Trnscb Date/Time: 07/29/2018 (1227) [id number] Orig Print D/T: S: 07/29/2018 (1230) Probe: [id number] PAGE 1 Signed Report - DUP AB/PEL/SC [id number] 12:27:00 Name: ANGELA ESPINOSA [facility] : 1975 Age/S: 42 / F [address] Unit #: [id number] Loc: PRINCE [place] [address] Phys: Jerri Bryson RESEARCH CLERK Acct: [id number] Di s Date: Status: REG ER PHONE #: [phone] Exam Date: 07/29/2018 1131 FAX #: Reason: RLQ pain EXAMS: CPT CODE: [id number] DUP AB/PEL/SC COMP 30618 EXAM: Pelvic and transvag inal ultrasound and duplex sonography; INFORMATION: Right lower qu adrant pain, evaluate ovaries; TECHNIQUE AND FINDINGS: Trans abdominal and transvaginal grayscale imaging was combined with color Doppl er sonography and spectral analysis. The patient is status post partial hy sterectomy. The ovaries are of normal size and shape and with normal flow pattern on Doppler exam. The right ovary measures 2.1 x 1.5 x 1.4 cm . The left ovary measures 2.3 x 1.5 x 2.1 cm. No solid or cystic adn exal lesions; No abnormal fluid collections within the pelvis. Unrem arkable urinary bladder. IMPRESSION: No evidence of ovar domo lesions or other pathological findings. at 1227 Reported and signed by: Boom Solorio CC: India Bryson NP Technologist: Veronika Templeton(S)(ARRT) Trnscb D ate/Time: 07/29/2018 (2961) RadhaW Orig Print D/T: S: 07/29/2018 (1799) Probe: PAGE 1 Signed Report - US ABDOMEN [id number] 12:25:00 Name: ANGELA ESPINOSA [facility] : 1975 Age/S: 42 / F [address] [facility] Unit #: [id number] Loc: PRINCE [place] [address] Phys: India Bryson NP Acct: [id number] Dis Date: Status: REG ER PHONE #: [phone] Exam Date: 07/29/2018 1101 FAX #: [phone] Reason: RLQ pain EXAMS: CPT CODE: [id number] US ABDOMEN COMPLETE 94141 EXAM: Ultrasound of the abdomen; INFORMATION: Abdominal pain; FINDINGS: The liver is of normal size and shape. It shows diffusely increased parenchymal echogenicity; no focal lesions. The patient is status post cholecystectomy; No dilatation of intra or extrahepatic bile ducts. The pancreas is largely obscured by bowel gas; no obvious lesions. The spleen is of normal size and shape and without focal lesions. Both kidneys are of normal size and shape and without evidence of hydronephrosis or stones; no parenchymal abnormalities. The right kidney measures 10.2 x 4.5 x 6.1 cm. The left kidney measures 10.6 x 4.8 x 5.7 cm. Imaged portions of the IVC and abdominal aorta are unremarkable. IMPRESSION: 1. Fatty liver. 2. No other significant abnormalities. at 1225 Reported and signed by: Ismael Mckeon M.D. CC: India Bryson NP Technologist: Veronika Templeton(S)([facility] Date/Time: 07/29/2018 (1415) Dayna Orig Print D/T: S: 07/29/2018 (0302) Probe: PAGE 1 Signed Report CBC W/O [id number] 09:37:00* Test Item Value Reference Range Interpretation Comments WHITE BLOOD CELL (test code = WBC) K/mm3 4.5-12.5 RED BLOOD CELL (test code = RBC) mill/mm3 3.7-5.2 HEMOGLOBIN (test code = HGB) 13.5 gram/dL 11.5-15.5 N HEMATOCRIT (test code = HCT) 41.8 % 36.0-46.0 N MEAN CELL VOLUME (test code = MCV) fL 80-98 MEAN CELL HGB (test code = MCH) picogram 27.0-33.0 MEAN CELL HGB CONCETRATION (test code = MCHC) gram/dL 33.0-36. 0 RED CELL DISTRIBUTION WIDTH (test code = RDW) % 11.6-16. 2 PLATELET COUNT (test code = PLT) K/mm3 150-450 MEAN PLATELET VOLUME (test code = MPV) fL 6.7-11.0 CBC W/O [id number] 09:37:00* Test Item Value Reference Range Interpretation Comments WHITE BLOOD CELL (test code = WBC) 6.9 K/mm3 4.5-12.5 N RED BLOOD CELL (test code = RBC) 4.69 mill/mm3 3.7-5.2 N HEMOGLOBIN (test code = HGB) 13.5 gram/dL 11.5-15.5 N HEMATOCRIT (test code = HCT) 41.8 % 36.0-46.0 N MEAN CELL VOLUME (test code = MCV) 89.1 fL 80-98 N MEAN CELL HGB (test code = MCH) 28.8 picogram 27.0-33.0 N MEAN CELL HGB CONCETRATION (test code = MCHC) 32.3 gram/dL 33.0-36. 0 L RED CELL DISTRIBUTION WIDTH (test code = RDW) 13.7 % 11.6-16. 2 N PLATELET COUNT (test code = PLT) 271 K/mm3 150-450 N MEAN PLATELET VOLUME (test code = MPV) 9.4 fL 6.7-11.0 N BASIC METABOLIC [id number] 09:29:00* Test Item Value Reference Range Interpretation Comments SODIUM (test code = NA) 139 mmol/L 136-145 N POTASSIUM (test code = K) 4.0 mmol/L 3.5-5.1 N CHLORIDE (test code = CL) 108.0 mmol/L 98-107 H CARBON DIOXIDE (test code = CO2) 26.0 mmol/L 21-32 N ANION GAP (test code = GAP) 9.0 10-20 L GLUCOSE (test code = GLU) 122 mg/dL 74-106 H BLOOD UREA NITROGEN (test code = BUN) 11 mg/dL 7-18 N GLOMERULAR FILTRATION RATE (test code = GFR) > 60 mL/min >=60 Estimated GFR by using Modified MDRD formula.Chronic kidney disease is defined as either kidney damageor GFR <60 mL/min/1.73 m2 for >3 months. CREATININE (test code = CREAT) 1.00 mg/dL 0.55-1.02 N Note change in reference range due to change in reagent. BUN/CREATININE RATIO (test code = BUN/CREA) 11.0 10-20 N CALCIUM (test code = CA) 8.4 mg/dL 8.5-10.1 L HEPATIC FUNCTION [id number] 09:29:00* Test Item Value Reference Range Interpretation Comments TOTAL PROTEIN (test code = PROT) 7.3 gram/dL 6.4-8.2 N ALBUMIN (test code = ALB) 3.6 g/dL 3.4-5.0 N GLOBULIN (test code = GLOB) 3.7 gram/dL 2.7-4.2 N ALBUMIN/GLOBULIN RATIO (test code = A/G) 1.0 0.75-1.50 N BILIRUBIN TOTAL (test code = BILT) 0.20 mg/dL 0.0-1.0 N BILIRUBIN DIRECT (test code = BILD) 0.08 mg/dL 0.0-0.20 N SGOT/AST (test code = AST) 14 IUnit/L 15-37 L SGPT/ALT (test code = ALT) 30 IUnit/L 12-78 N ALKALINE PHOSPHATASE TOTAL (test code = ALKP) 111 IUnit/L 45-117 N Note change in reference range due to change in reagent. [id number] 09:29:00* Test Item Value Reference Range Interpretation Comments LIPASE (test code = LIP) 188 U/L 73.0-393.0 N HCG SERUM [id number] 09:29:00* Test Item Value Reference Range Interpretation Comments HCG SERUM QUAL (test code = HCGQL) NEGATIVE NEGATIVE This HCGQL test is NOT applicable for MALE patients.Check with nurse about probable order error.If Tumor Marker Test needed, nurse should order test "HCGTU"(Test #550.51527) BASIC METABOLIC [id number] 09:22:00* Test Item Value Reference Range Interpretation Comments SODIUM (test code = NA) mmol/L 136-145 POTASSIUM (test code = K) mmol/L 3.5-5.1 CHLORIDE (test code = CL) mmol/L 98-107 CARBON DIOXIDE (test code = CO2) mmol/L 21-32 ANION GAP (test code = GAP) 10-20 GLUCOSE (test code = GLU) mg/dL 74-106 BLOOD UREA NITROGEN (test code = BUN) mg/dL 7-18 GLOMERULAR FILTRATION RATE (test code = GFR) mL/min >=60 CREATININE (test code = CREAT) mg/dL 0.55-1.02 BUN/CREATININE RATIO (test code = BUN/CREA) 10-20 CALCIUM (test code = CA) mg/dL 8.5-10.1 HEPATIC FUNCTION [id number] 09:22:00* Test Item Value Reference Range Interpretation Comments TOTAL PROTEIN (test code = PROT) gram/dL 6.4-8.2 ALBUMIN (test code = ALB) g/dL 3.4-5.0 GLOBULIN (test code = GLOB) gram/dL 2.7-4.2 ALBUMIN/GLOBULIN RATIO (test code = A/G) 0.75-1.50 BILIRUBIN TOTAL (test code = BILT) mg/dL 0.0-1.0 BILIRUBIN DIRECT (test code = BILD) mg/dL 0.0-0.20 SGOT/AST (test code = AST) IUnit/L 15-37 SGPT/ALT (test code = ALT) IUnit/L 12-78 ALKALINE PHOSPHATASE TOTAL (test code = ALKP) IUnit/L 45-117 [id number] 09:22:00* Test Item Value Reference Range Interpretation Comments LIPASE (test code = LIP) U/L 73.0-393.0 HCG SERUM [id number] 09:22:00* Test Item Value Reference Range Interpretation Comments HCG SERUM QUAL (test code = HCGQL) NEGATIVE NEGATIVE This HCGQL test is NOT applicable for MALE patients.Check with nurse about probable order error.If Tumor Marker Test needed, nurse should order test "HCGTU"(Test #550.74055) BASIC METABOLIC [id number] 09:22:00* Test Item Value Reference Range Interpretation Comments SODIUM (test code = NA) 139 mmol/L 136-145 N POTASSIUM (test code = K) 4.0 mmol/L 3.5-5.1 N CHLORIDE (test code = CL) 108.0 mmol/L 98-107 H CARBON DIOXIDE (test code = CO2) mmol/L 21-32 ANION GAP (test code = GAP) 10-20 GLUCOSE (test code = GLU) mg/dL 74-106 BLOOD UREA NITROGEN (test code = BUN) mg/dL 7-18 GLOMERULAR FILTRATION RATE (test code = GFR) mL/min >=60 CREATININE (test code = CREAT) mg/dL 0.55-1.02 BUN/CREATININE RATIO (test code = BUN/CREA) 10-20 CALCIUM (test code = CA) mg/dL 8.5-10.1 HEPATIC FUNCTION [id number] 09:22:00* Test Item Value Reference Range Interpretation Comments TOTAL PROTEIN (test code = PROT) gram/dL 6.4-8.2 ALBUMIN (test code = ALB) g/dL 3.4-5.0 GLOBULIN (test code = GLOB) gram/dL 2.7-4.2 ALBUMIN/GLOBULIN RATIO (test code = A/G) 0.75-1.50 BILIRUBIN TOTAL (test code = BILT) mg/dL 0.0-1.0 BILIRUBIN DIRECT (test code = BILD) mg/dL 0.0-0.20 SGOT/AST (test code = AST) IUnit/L 15-37 SGPT/ALT (test code = ALT) IUnit/L 12-78 ALKALINE PHOSPHATASE TOTAL (test code = ALKP) IUnit/L 45-117 [id number] 09:22:00* Test Item Value Reference Range Interpretation Comments LIPASE (test code = LIP) U/L 73.0-393.0 HCG SERUM [id number] 09:22:00* Test Item Value Reference Range Interpretation Comments HCG SERUM QUAL (test code = HCGQL) NEGATIVE NEGATIVE This HCGQL test is NOT applicable for MALE patients.Check with nurse about probable order error.If Tumor Marker Test needed, nurse should order test "HCGTU"(Test #550.10731) URINALYSIS [id number] 09:15:00* Test Item Value Reference Range Interpretation Comments UA COLOR (test code = COLU) STRAW YELLOW UA APPEARANCE (test code = APPU) CLEAR CLEAR UA GLUCOSE DIPSTICK (test code = DGLUU) NEGATIVE mg/dL NEGATIVE UA BILIRUBIN DIPSTICK (test code = BILU) NEGATIVE mg/dL NEGATIVE UA KETONE DIPSTICK (test code = KETU) Negative mg/dL NEGATIVE UA SPECIFIC GRAVITY (test code = SGU) 1.004 1.001-1.035 UA BLOOD DIPSTICK (test code = MAT) Negative NEGATIVE UA PH DIPSTICK (test code = CHARISMA) 6.0 5.0-8.0 UA PROTEIN DIPSTICK (test code = PROU) Negative mg/dL NEGATIVE UA UROBILINIOGEN DIPSTICK (test code = URO) NEGATIVE mg/dL NEGATIVE UA NITRITE DIPSTICK (test code = MANDI) NEGATIVE NEGATIVE UA LEUKOCYTE ESTERASE W REFLEX (test code = LEUUR) NEGATIVE NEG ATIVE UA WBC (test code = WBCU) 0-5 #/HPF 0-5 UA RBC (test code = RBCU) 0-2 #/HPF 0-5 UA EPITHELIAL CELLS (test code = EPIU) FEW per HPF FEW UA BACTERIA (test code = BACU) MANY #/HPF NONE A UA MUCUS (test code = MUCU) FEW #/LPF FEW Urine Source? Clean CatchURINALYSIS [id number] 09:12:00* Test Item Value Reference Range Interpretation Comments UA COLOR (test code = COLU) STRAW YELLOW UA APPEARANCE (test code = APPU) CLEAR CLEAR UA GLUCOSE DIPSTICK (test code = DGLUU) NEGATIVE mg/dL NEGATIVE UA BILIRUBIN DIPSTICK (test code = BILU) NEGATIVE mg/dL NEGATIVE UA KETONE DIPSTICK (test code = KETU) Negative mg/dL NEGATIVE UA SPECIFIC GRAVITY (test code = SGU) 1.004 1.001-1.035 UA BLOOD DIPSTICK (test code = MAT) Negative NEGATIVE UA PH DIPSTICK (test code = CHARISMA) 6.0 5.0-8.0 UA PROTEIN DIPSTICK (test code = PROU) Negative mg/dL NEGATIVE UA UROBILINIOGEN DIPSTICK (test code = URO) NEGATIVE mg/dL NEGATIVE UA NITRITE DIPSTICK (test code = MANDI) NEGATIVE NEGATIVE UA LEUKOCYTE ESTERASE W REFLEX (test code = LEUUR) NEGATIVE NEG ATIVE UA WBC (test code = WBCU) per HPF 0-5 Urine Source? Clean CatchDRUGS OF ABUSE [id number] 10:04:00* Test Item Value Reference Range Interpretation Comments UR COCAINE (test code = COCAU) NEGATIVE NEGATIVE DETECTION CUT OFF: 150 ng/mL UR CANNABINOIDS (test code = CANU) POSITIVE NEGATIVE A RESULTS CALLED TO Anna AscencioREAD BACK & CONFIRMED? Y.BY FBALAJI.T 07/22/18 1001. DETECTION CUT OFF: 50 ng/mL UR AMPHETAMINE (test code = AMPHU) NEGATIVE NEGATIVE DETECTION CUT OFF: 500 ng/mL UR BARBITURATE QUAL (test code = BARBQLU) NEGATIVE NEGATIVE DETECTION CUT OFF: 200 ng/mL UR BENZODIAZEPINE (test code = BENZU) POSITIVE NEGATIVE A RESULTS CALLED TO ANNA AscencioREAD BACK & CONFIRMED? Y.BY FSilvaLAB.T 07/22/18 1002. DETECTION CUT OFF: 150 ng/mL UR OPIATES QUAL (test code = OPIAQLU) NEGATIVE NEGATIVE DETECTION CUT OFF: 100 ng/mL UR PHENCYCLIDINE (PCP) (test code = PHENCU) NEGATIVE NEGATIVE DETECTION CUT OFF: 25 ng/mL UA RFLX MICR CULT IF [id number] 09:43:00* Test Item Value Reference Range Interpretation Comments UA COLOR (test code = COLU) YELLOW YELLOW UA APPEARANCE (test code = APPU) CLOUDY CLEAR A UA GLUCOSE DIPSTICK (test code = DGLUU) NEGATIVE NEG UA BILIRUBIN DIPSTICK (test code = BILU) NEGATIVE NEG UA KETONE DIPSTICK (test code = KETU) NEGATIVE NEG UA SPECIFIC GRAVITY (test code = SGU) 1.012 1.001-1.035 N UA BLOOD DIPSTICK (test code = MAT) NEG NEG UA PH DIPSTICK (test code = CHARISMA) 5.0 5-9 UA PROTEIN DIPSTICK (test code = PROU) NEGATIVE NEG UA UROBILINIOGEN DIPSTICK (test code = URO) NEGATIVE mg/dL NEG UA NITRITE DIPSTICK (test code = MANDI) POSITIVE NEG A UA LEUKOCYTE ESTERASE DIPSTICK (test code = LEUU) TRACE NEG A UA WBC (test code = WBCU) 3-5 #/hpf NONE SEEN A UA RBC (test code = RBCU) 0-2 #/hpf NONE SEEN UA EPITHELIAL CELLS (test code = EPIU) MANY #/HPF RARE-FEW A UA BACTERIA (test code = BACU) FEW /HPF RARE-FEW UA MUCUS (test code = MUCU) RARE NONE SEEN COMPREHENSIVE METABOLIC [id number] 11:56:00* Test Item Value Reference Range Interpretation Comments SODIUM (test code = NA) 139 mEq/L 135-145 N POTASSIUM (test code = K) 4.5 mEq/L 3.5-5.0 N CHLORIDE (test code = CL) 103 mEq/L 100-115 N CARBON DIOXIDE (test code = CO2) 25 mEq/L 22-31 N ANION GAP (test code = GAP) 15.30 10-20 N GLUCOSE (test code = GLU) 107 mg/dL 65-110 N BLOOD UREA NITROGEN (test code = BUN) 13 mg/dL 7-18 N GLOMERULAR FILTRATION RATE (test code = GFR) 61 ml/min >60 N CREATININE (test code = CREAT) 1.0 mg/dL 0.5-1.0 N TOTAL PROTEIN (test code = PROT) 6.4 gm/dL 6.3-8.2 N ALBUMIN (test code = ALB) 3.3 gm/dL 3.4-4.8 L CALCIUM (test code = CA) 8.9 mg/dL 8.4-10.2 N BILIRUBIN TOTAL (test code = BILT) 0.3 mg/dL 0.2-1.0 N SGOT/AST (test code = AST) 14 units/L 15-37 L SGPT/ALT (test code = ALT) 29 units/L 12-78 N ALKALINE PHOSPHATASE TOTAL (test code = ALKP) 102 units/L 46-116 N [id number] 11:56:00* Test Item Value Reference Range Interpretation Comments LIPASE (test code = LIP) 108 units/L 73-393 N CBC W/AUTO [id number] 11:30:00* Test Item Value Reference Range Interpretation Comments WHITE BLOOD CELL (test code = WBC) 6.0 K/mm3 6.6-12.1 L RED BLOOD CELL (test code = RBC) 4.35 M/mm3 3.45-5.01 N HEMOGLOBIN (test code = HGB) 12.6 g/dL 10.7-13.9 N HEMATOCRIT (test code = HCT) 38.6 % 32.1-42.1 N MEAN CELL VOLUME (test code = MCV) 89 fL 84.1-94.8 N MEAN CELL HGB (test code = MCH) 29.0 pg 27-35 N MEAN CELL HGB CONCETRATION (test code = MCHC) 32.6 gm/dL 32.2-34. 1 N RED CELL DISTRIBUTION WIDTH (test code = RDW) 13.3 % 12.4-16. 5 N PLATELET COUNT (test code = PLT) 284 K/mm3 133-385 N IMMATURE PLATELET FRACTION (test code = IPF) 0.0 % 0.0-10.8 N MEAN PLATELET VOLUME (test code = MPV) 8.9 fl 9.1-12.7 L NEUTROPHIL % (test code = NT%) 64.7 % 56.5-79.4 N LYMPHOCYTE % (test code = LY%) 24.6 % 14.3-34.3 N MONOCYTE % (test code = MO%) 6.2 % 5.1-10.4 N EOSINOPHIL % (test code = EO%) 3.5 % 0.1-3.0 H BASOPHIL % (test code = BA%) 0.8 % 0.1-1.0 N NEUTROPHIL # (test code = NT#) 3.9 K/mm3 LYMPHOCYTE # (test code = LY#) 1.5 K/mm3 MONOCYTE # (test code = MO#) 0.4 K/mm3 EOSINOPHIL # (test code = EO#) 0.21 K/mm3 BASOPHIL # (test code = BA#) 0.1 K/mm3 RBC MORPHOLOGY REQUIRED (test code = RBCM) NORMAL NORMAL PLATELET MORPHOLOGY REQUIRED (test code = PLTMR) NORMAL YOANA L DRUGS OF ABUSE [id number] 11:17:00* Test Item Value Reference Range Interpretation Comments UR COCAINE (test code = COCAU) NEGATIVE NEGATIVE DETECTION CUT OFF: 150 ng/mL UR CANNABINOIDS (test code = CANU) POSITIVE NEGATIVE A DETECTION CUT OFF: 50 ng/mLPreviously reported result: POSITIVE Edited by: FSilvaLAB.KG on 07/03/18:1116CANU prev. reported as:POSITIVE H . RESULTS CALLED TO .. READ BACK & CONFIRMED? . BY F.LAB.KG 07/03/18 1114. UR AMPHETAMINE (test code = AMPHU) NEGATIVE NEGATIVE DETECTION CUT OFF: 500 ng/mL UR BARBITURATE QUAL (test code = BARBQLU) NEGATIVE NEGATIVE DETECTION CUT OFF: 200 ng/mL UR BENZODIAZEPINE (test code = BENZU) POSITIVE NEGATIVE A RESULTS CALLED TO WANDA CHOPRA BACK & CONFIRMED? HARISH F.LAB.KG 07/03/18 1113. DETECTION CUT OFF: 150 ng/mLPreviously reported result: POSITIVE Edited by: yavalu. on 07/03/18:1116BENZU prev. reported as:POSITIVE H . RESULTS CALLED TO .. READ BACK & CONFIRMED? . BY [facility] [employer] [facility]. 07/03/18 1113. UR OPIATES QUAL (test code = OPIAQLU) POSITIVE NEGATIVE A RESULTS CALLED TO WANDA CHOPRA BACK & CONFIRMED? HARISH .[employer]. 07/03/18 1114. DETECTION CUT OFF: 100 ng/mLPreviously reported result: POSITIVE Edited by: [email or web address]. on 07/03/18:1117OPIAQLU prev. reported as:POSITIVE H . RESULTS CALLED TO .. READ BACK & CONFIRMED? . BY [facility] [employer] [facility]. 07/03/18 111. UR PHENCYCLIDINE (PCP) (test code = PHENCU) NEGATIVE NEGATIVE DETECTION CUT OFF: 25 ng/mL DRUGS OF ABUSE [id number] 11:16:00* Test Item Value Reference Range Interpretation Comments UR COCAINE (test code = COCAU) NEGATIVE NEGATIVE DETECTION CUT OFF: 150 ng/mL UR CANNABINOIDS (test code = CANU) POSITIVE NEGATIVE A RESULTS CALLED TO .READ BACK & CONFIRMED? .BY [facility] [employer] [facility]. 07/03/18 1114. DETECTION CUT OFF: 50 ng/mL UR AMPHETAMINE (test code = AMPHU) NEGATIVE NEGATIVE DETECTION CUT OFF: 500 ng/mL UR BARBITURATE QUAL (test code = BARBQLU) NEGATIVE NEGATIVE DETECTION CUT OFF: 200 ng/mL UR BENZODIAZEPINE (test code = BENZU) POSITIVE NEGATIVE A RESULTS CALLED TO .READ BACK & CONFIRMED? .BY .[employer]. 07/03/18 1113. DETECTION CUT OFF: 150 ng/mL UR OPIATES QUAL (test code = OPIAQLU) POSITIVE NEGATIVE A RESULTS CALLED TO .READ BACK & CONFIRMED? .BY [facility] [employer] [facility]. 07/03/18 111. DETECTION CUT OFF: 100 ng/mL UR PHENCYCLIDINE (PCP) (test code = PHENCU) NEGATIVE NEGATIVE DETECTION CUT OFF: 25 ng/mL UR HCG [id number] 11:00:00* Test Item Value Reference Range Interpretation Comments UR HCG QUAL (test code = HCGQLU) NEGATIVE 1. Very dilute urine specimens, as indicated by a lowspecific gravity, may not contain group sales representative levels ofhCG. 2. False negative results may occur when the levels of hCGare below the sensitivity level of the test. If is still suspected, a first morningurine specimen should be collected 48 hours later andtested. - XR ABDOMEN 1 [id number] 09:21:00 Patient Name: ANGELA ESPINOSA Unit No: [id number] EXAMS: CPT CODE: [id number] XR ABDOMEN 1 V 12357 ABDOMEN KUB, 07/01/2018: COMPARISON: March 22, 2018 CLINICAL HISTORY: postoperative abdominal pain FINDINGS: AP view of the abdomen was obtained. Abdominal gas pattern was nonspecific. Fecal material is seen throughout the colon. No definite obstruction is seen. No obvious pathologic calcifications were seen overlying the kidneys. There are surgical clips in the right upper quadrant, presumed to be secondary to prior cholecystectomy. A few abdominal wall metallic clips are present overlying the left central abdomen. IMPRESSION: Nonspecific, nonobstructive bowel gas pattern. at 0921 Reported and signed by: Walter Keita MD CC: Radha Caruso MD Technologist: RT Chrissie Trnscrbd D/ ([phone] [email or web address] Orig Print D/T: S: 07/01/2018 (09) [facility] NAME: ANGELA ESPINOSA Radiology Department PHYS: GUTAL. - Radha Caruso [address] : 1975 AGE: 42 SEX: F [place], [place] [address] LOC: ALIVIA PHONE #: [phone] EXAM DATE: 07/01/2018 STATUS: REG ER FAX #: [phone] RAD NO: Page 1 Signed Report COMPREHENSIVE METABOLIC [id number] 09:02:00* Test Item Value Reference Range Interpretation Comments SODIUM (test code = NA) 139 mEq/L 135-145 N POTASSIUM (test code = K) 4.3 mEq/L 3.5-5.0 N CHLORIDE (test code = CL) 103 mEq/L 100-115 N CARBON DIOXIDE (test code = CO2) 28 mEq/L 22-31 N ANION GAP (test code = GAP) 12.10 10-20 N GLUCOSE (test code = GLU) 110 mg/dL 65-110 N BLOOD UREA NITROGEN (test code = BUN) 12 mg/dL 7-18 N GLOMERULAR FILTRATION RATE (test code = GFR) 61 ml/min >60 N CREATININE (test code = CREAT) 1.0 mg/dL 0.5-1.0 N TOTAL PROTEIN (test code = PROT) 6.2 gm/dL 6.3-8.2 L ALBUMIN (test code = ALB) 3.2 gm/dL 3.4-4.8 L CALCIUM (test code = CA) 8.9 mg/dL 8.4-10.2 N BILIRUBIN TOTAL (test code = BILT) 0.2 mg/dL 0.2-1.0 N SGOT/AST (test code = AST) 15 units/L 15-37 N SGPT/ALT (test code = ALT) 40 units/L 12-78 N ALKALINE PHOSPHATASE TOTAL (test code = ALKP) 102 units/L 46-116 N [id number] 09:02:00* Test Item Value Reference Range Interpretation Comments AMYLASE (test code = JANIE) 56 units/L 30-110 N [id number] 09:02:00* Test Item Value Reference Range Interpretation Comments LIPASE (test code = LIP) 114 units/L 73-393 N CBC W/AUTO [id number] 08:48:00* Test Item Value Reference Range Interpretation Comments WHITE BLOOD CELL (test code = WBC) 6.0 K/mm3 6.6-12.1 L RED BLOOD CELL (test code = RBC) 4.39 M/mm3 3.45-5.01 N HEMOGLOBIN (test code = HGB) 12.8 g/dL 10.7-13.9 N HEMATOCRIT (test code = HCT) 39.4 % 32.1-42.1 N MEAN CELL VOLUME (test code = MCV) 90 fL 84.1-94.8 N MEAN CELL HGB (test code = MCH) 29.2 pg 27-35 N MEAN CELL HGB CONCETRATION (test code = MCHC) 32.5 gm/dL 32.2-34. 1 N RED CELL DISTRIBUTION WIDTH (test code = RDW) 13.7 % 12.4-16. 5 N PLATELET COUNT (test code = PLT) 286 K/mm3 133-385 N IMMATURE PLATELET FRACTION (test code = IPF) 0.0 % 0.0-10.8 N MEAN PLATELET VOLUME (test code = MPV) 9.0 fl 9.1-12.7 L NEUTROPHIL % (test code = NT%) 62.5 % 56.5-79.4 N LYMPHOCYTE % (test code = LY%) 26.1 % 14.3-34.3 N MONOCYTE % (test code = MO%) 6.3 % 5.1-10.4 N EOSINOPHIL % (test code = EO%) 4.3 % 0.1-3.0 H BASOPHIL % (test code = BA%) 0.5 % 0.1-1.0 N NEUTROPHIL # (test code = NT#) 3.8 K/mm3 LYMPHOCYTE # (test code = LY#) 1.6 K/mm3 MONOCYTE # (test code = MO#) 0.4 K/mm3 EOSINOPHIL # (test code = EO#) 0.26 K/mm3 BASOPHIL # (test code = BA#) 0.0 K/mm3 RBC MORPHOLOGY REQUIRED (test code = RBCM) NORMAL NORMAL PLATELET MORPHOLOGY REQUIRED (test code = PLTMR) NORMAL YOANA L HERNIA [id number] 20:35:00 RUN DATE: 06/29/18 [facility] PAGE 1 RUN TIME: 1229 Specimen Inqui ry RUN USER: INTERFACE PATIENT: ANGELA ESPINOSA ACCT #: [id number] LOC: KARMA #: [id number] AGE/SX: 42/F ROOM: [facility] RE06/23/18REG DR: Jose Layne : 79 BED: A DIS: 06/27/18 STATUS: DIS IN TLOC: SPEC #: [id number] RECD: 06/25/18 STATUS: SHAGUFTA CONNOLLY #: [id number] MICHELLE: 06/25/18- SUBM DR: Jose Layne MD ENTERED: 06/25/18 SP TYPE: HERSAC OTHR DR: ORDERED: LEVEL II SURGIC/2 CODES: [id number] - SOFT TISSUES, N PROCEDURES: LEVEL II SURGIC (Incomplete) TISSUES: SOFT TISSUES, NOS - HERNIA CONT ENTS FOREIGN BODY - MESH AND TACKS CLINICAL HISTORY 42 year o ld, recurrent incarcerated incisional hernia (kr) FINAL DIAGNOSIS De signated "hernia contents", herniorrhaphy: - fibroadipose tissue, consist ent with hernia sac Designated "mesh and tacks", removal: - fibroad ipose tissue containing polarizable foreign material associated with fo reign body giant cell reaction, fibrosis, and mild chronic inflammation - orthopedic hardware (gross identification only) Tissue code 1 CPT code(s): 49038, 87508 pkg/wpd dt: 06/28/18 GROSS DESCRIPTION EARL OMIC SOURCE OF TISSUE (per Requisition): 1. Hernia contents 2. Mesh and tacks (id only) Each specimen is labeled with the patient's name and medic al record number. Specimen #1 is designated "hernia contents" and consists of several pieces of glover and yellow tissue aggregating to 5 x 3 x 2 cm. No d iscrete discolored nor firm area is noted. Principal Systems Engineer sections are submit luisito labeled A . Specimen #2 is designated "mesh and tacks, Id only" and co nsists of roughly ovoid piece of fabric material with adhesed glover and yellow t issue measuring 9 x 7 x 0.4 cm and separate pieces of dark metallic coils aggr egating to 1.7 x 0.3 cm. CONTINUED ON NEXT PA GE RUN DATE: 06/29/18 [facility] PAGE 2 RUN TIME: 1229 Specimen Inquiry RUN USER: INTERFACE SPEC #: [id number] PATIENT: ANGELA NAIR #[id number] (Continued) GROSS DESC RIPTION (Continued) Principal Systems Engineer sections of the mesh and adhesed tissue are submitted labeled Roxanna sifuentes/monty 06/25/18 @ 1141 MICROSCOPIC DESCRIPT ION Specimen #1 consists of adipose tissue and fibrous tissue. Specimen #2 consists of fibroconnective tissue containing numerous fragments of polari zable foreign material which are associated with fibrosis, a mild to moderate infiltrate of lymphocytes and plasma cells, and a foreign body giant cell reac tion. Also present within the container are pieces of orthopedic hardware. pkg/wpd dt: 06/28/18 Signed Renay Hopkins 06/28/182034 END OF REPORT UR HCG [id number] 20:08:00* Test Item Value Reference Range Interpretation Comments UR HCG QUAL (test code = HCGQLU) NEGATIVE 1. Very dilute urine specimens, as indicated by a lowspecific gravity, may not contain group sales representative levels ofhCG. 2. False negative results may occur when the levels of hCGare below the sensitivity level of the test. If is still suspected, a first morningurine specimen should be collected 48 hours later andtested. COMPREHENSIVE METABOLIC [id number] 11:42:00* Test Item Value Reference Range Interpretation Comments SODIUM (test code = NA) 139 mEq/L 135-145 N POTASSIUM (test code = K) 4.4 mEq/L 3.5-5.0 N CHLORIDE (test code = CL) 104 mEq/L 100-115 N CARBON DIOXIDE (test code = CO2) 30 mEq/L 22-31 N ANION GAP (test code = GAP) 9.40 10-20 L GLUCOSE (test code = GLU) 95 mg/dL 65-110 N BLOOD UREA NITROGEN (test code = BUN) 11 mg/dL 7-18 N GLOMERULAR FILTRATION RATE (test code = GFR) 79 ml/min >60 N CREATININE (test code = CREAT) 0.8 mg/dL 0.5-1.0 N TOTAL PROTEIN (test code = PROT) 6.1 gm/dL 6.3-8.2 L ALBUMIN (test code = ALB) 3.3 gm/dL 3.4-4.8 L CALCIUM (test code = CA) 8.6 mg/dL 8.4-10.2 N BILIRUBIN TOTAL (test code = BILT) 0.2 mg/dL 0.2-1.0 N SGOT/AST (test code = AST) 18 units/L 15-37 N SGPT/ALT (test code = ALT) 22 units/L 12-78 N ALKALINE PHOSPHATASE TOTAL (test code = ALKP) 96 units/L 46-116 N [id number] 11:42:00* Test Item Value Reference Range Interpretation Comments LIPASE (test code = LIP) 129 units/L 73-393 N CBC W/AUTO [id number] 11:11:00* Test Item Value Reference Range Interpretation Comments WHITE BLOOD CELL (test code = WBC) 6.8 K/mm3 6.6-12.1 N RED BLOOD CELL (test code = RBC) 4.31 M/mm3 3.45-5.01 N HEMOGLOBIN (test code = HGB) 12.5 g/dL 10.7-13.9 N HEMATOCRIT (test code = HCT) 38.3 % 32.1-42.1 N MEAN CELL VOLUME (test code = MCV) 89 fL 84.1-94.8 N MEAN CELL HGB (test code = MCH) 29.0 pg 27-35 N MEAN CELL HGB CONCETRATION (test code = MCHC) 32.6 gm/dL 32.2-34. 1 N RED CELL DISTRIBUTION WIDTH (test code = RDW) 13.3 % 12.4-16. 5 N PLATELET COUNT (test code = PLT) 266 K/mm3 133-385 N IMMATURE PLATELET FRACTION (test code = IPF) 0.0 % 0.0-10.8 N MEAN PLATELET VOLUME (test code = MPV) 8.8 fl 9.1-12.7 L NEUTROPHIL % (test code = NT%) 67.5 % 56.5-79.4 N LYMPHOCYTE % (test code = LY%) 25.5 % 14.3-34.3 N MONOCYTE % (test code = MO%) 5.3 % 5.1-10.4 N EOSINOPHIL % (test code = EO%) 1.0 % 0.1-3.0 N BASOPHIL % (test code = BA%) 0.6 % 0.1-1.0 N NEUTROPHIL # (test code = NT#) 4.6 K/mm3 LYMPHOCYTE # (test code = LY#) 1.7 K/mm3 MONOCYTE # (test code = MO#) 0.4 K/mm3 EOSINOPHIL # (test code = EO#) 0.07 K/mm3 BASOPHIL # (test code = BA#) 0.0 K/mm3 RBC MORPHOLOGY REQUIRED (test code = RBCM) NORMAL NORMAL PLATELET MORPHOLOGY REQUIRED (test code = PLTMR) NORMAL YOANA L DRUGS OF ABUSE [id number] 10:55:00* Test Item Value Reference Range Interpretation Comments UR COCAINE (test code = COCAU) NEGATIVE NEGATIVE DETECTION CUT OFF: 150 ng/mL UR CANNABINOIDS (test code = CANU) POSITIVE NEGATIVE A RESULTS CALLED TO MARGOTH Tim.READ BACK & CONFIRMED? Y.BY F.LAB.[facility] [place]. DETECTION CUT OFF: 50 ng/mL UR AMPHETAMINE (test code = AMPHU) NEGATIVE NEGATIVE DETECTION CUT OFF: 500 ng/mL UR BARBITURATE QUAL (test code = BARBQLU) NEGATIVE NEGATIVE DETECTION CUT OFF: 200 ng/mL UR BENZODIAZEPINE (test code = BENZU) POSITIVE NEGATIVE A RESULTS CALLED TO TOBIAS.READ BACK & CONFIRMED? Y.BY F.LAB.[facility] 1054. DETECTION CUT OFF: 150 ng/mL UR OPIATES QUAL (test code = OPIAQLU) NEGATIVE NEGATIVE DETECTION CUT OFF: 100 ng/mL UR PHENCYCLIDINE (PCP) (test code = PHENCU) NEGATIVE NEGATIVE DETECTION CUT OFF: 25 ng/mL UA RFLX MICR CULT IF [id number] 10:27:00* Test Item Value Reference Range Interpretation Comments UA COLOR (test code = COLU) YELLOW YELLOW UA APPEARANCE (test code = APPU) CLEAR CLEAR UA GLUCOSE DIPSTICK (test code = DGLUU) NEGATIVE NEG UA BILIRUBIN DIPSTICK (test code = BILU) NEGATIVE NEG UA KETONE DIPSTICK (test code = KETU) NEGATIVE NEG UA SPECIFIC GRAVITY (test code = SGU) 1.013 1.001-1.035 N UA BLOOD DIPSTICK (test code = MAT) NEG NEG UA PH DIPSTICK (test code = CHARISMA) 6.0 5-9 UA PROTEIN DIPSTICK (test code = PROU) NEGATIVE NEG UA UROBILINIOGEN DIPSTICK (test code = URO) NEGATIVE mg/dL NEG UA NITRITE DIPSTICK (test code = MANDI) NEG NEG UA LEUKOCYTE ESTERASE DIPSTICK (test code = LEUU) NEG NEG UA WBC (test code = WBCU) 3-5 #/hpf NONE SEEN A UA RBC (test code = RBCU) 0-2 #/hpf NONE SEEN UA EPITHELIAL CELLS (test code = EPIU) RARE #/HPF RARE-FEW UA MUCUS (test code = MUCU) RARE NONE SEEN Urine [id number] 10:28:00* Test Item Value Reference Range Interpretation Comments Urine WBC (test code = 5821-4) 6-10 0-5 H [facility] [id number] 10:28:00* Test Item Value Reference Range Interpretation Comments Urine RBC (test code = 18452-1) NONE 0-5 [facility] [id number] 10:28:00* Test Item Value Reference Range Interpretation Comments Urine Bacteria (test code = 66460-6) MODERATE NONE H [facility] HospitalUrine Epithelial [id number] 10:28:00 * Test Item Value Reference Range Interpretation Comments Urine Epithelial Cells (test code = 50033-8) RARE NONE [facility] [id number] 10:24:00* Test Item Value Reference Range Interpretation Comments Sodium Level (test code = 2951-2) 138 136-145 [facility] HospitalPotassium [id number] 10:24:00* Test Item Value Reference Range Interpretation Comments Potassium Level (test code = 2823-3) 3.7 3.5-5.1 [facility] HospitalChloride [id number] 10:24:00* Test Item Value Reference Range Interpretation Comments Chloride Level (test code = 2075-0) 108 98-107 H [facility] HospitalCarbon Dioxide [id number] 10:24:00* Test Item Value Reference Range Interpretation Comments Carbon Dioxide Level (test code = 2028-9) 23 22-29 [facility] HospitalAnion [id number] 10:24:00* Test Item Value Reference Range Interpretation Comments Anion Gap (test code = 45458-6) 10.7 8-16 [facility] HospitalBlood Urea [id number] 10:24:00* Test Item Value Reference Range Interpretation Comments Blood Urea Nitrogen (test code = 3094-0) 9 7-26 [facility] HospitalCreatinine2019-01-15 10:24:00* Test Item Value Reference Range Interpretation Comments Creatinine (test code = 2160-0) 0.99 0.57-1.11 [facility] HospitalBUN/Creatinine [id number] 10:24:00* Test Item Value Reference Range Interpretation Comments BUN/Creatinine Ratio (test code = 3097-3) 9 6- [facility] HospitalEstimat Glomerular Filtration Rate 2018-06-15 10:24:00* Test Item Value Reference Range Interpretation Comments Estimat Glomerular Filtration Rate (test code = 034513046) > 60 >60 Ranges were taken from the National Kidney Disease Education Program and the [facility] [employer] literature.Reference ranges:60 or greater: Msjymh70-46 ( for 3 consecutive months): Chronic kidney disease 15 or less: Kidney failureMemorial Hermann Cypress HospitalGlucose Wwrkn4281-13-64 10:24:00* Test Item Value Reference Range Interpretation Comments Glucose Level (test code = YSU3818) 76 74-118 [facility] HospitalCalcium Qzxsm2773-89-56 10:24:00* Test Item Value Reference Range Interpretation Comments Calcium Level (test code = 77511-4) 8.5 8.4-10.2 [facility] HospitalTotal Jbsaeseht3399-86-81 10:24:00* Test Item Value Reference Range Interpretation Comments Total Bilirubin (test code = 1975-2) 0.2 0.2-1.2 [facility] HospitalAspartate Amino Transf (AST/SGOT) 2018-06-15 10:24:00* Test Item Value Reference Range Interpretation Comments Aspartate Amino Transf (AST/SGOT) (test code = Aspartate Amino Transf (AST/SGOT)) 17 5-34 [facility] HospitalAlanine Aminotransferase (ALT/SGPT) 2018-06-15 10:24:00* Test Item Value Reference Range Interpretation Comments Alanine Aminotransferase (ALT/SGPT) (test code = 1742-6) 19 0-55 [facility] HospitalTotal [id number] 10:24:00* Test Item Value Reference Range Interpretation Comments Total Protein (test code = 2885-2) 6.3 6.5-8.1 L [facility] HospitalAlbumin2019-01-15 10:24:00* Test Item Value Reference Range Interpretation Comments Albumin (test code = 1751-7) 3.6 3.5-5.0 [facility] HospitalGlobulin2019-01-15 10:24:00* Test Item Value Reference Range Interpretation Comments Globulin (test code = 76553-7) 2.7 2.3-3.5 [facility] HospitalAlbumin/Globulin Zuhne4515-03-90 10:24:00 * Test Item Value Reference Range Interpretation Comments Albumin/Globulin Ratio (test code = 1759-0) 1.3 0.8-2.0 [facility] HospitalAlkaline Esfeteyjlia1023-23-52 10:24:00* Test Item Value Reference Range Interpretation Comments Alkaline Phosphatase (test code = 6768-6) 87 40-150 [facility] HospitalAmylase Cjify2998-81-81 10:24:00* Test Item Value Reference Range Interpretation Comments Amylase Level (test code = 1798-8) 101 25-125 [facility] HospitalLipase2019-01-15 10:24:00* Test Item Value Reference Range Interpretation Comments Lipase (test code = 3040-3) 30 8-78 [facility] HospitalAmylase Vhemw0199-33-10 10:24:00* Test Item Value Reference Range Interpretation Comments Amylase Level (test code = 1798-8) 101 25-125 [facility] HospitalAmylase Edalo0368-05-16 10:24:00* Test Item Value Reference Range Interpretation Comments Amylase Level (test code = 1798-8) 101 25-125 [facility] HospitalAmylase Zjhvm9627-14-58 10:24:00* Test Item Value Reference Range Interpretation Comments Amylase Level (test code = 1798-8) 101 25-125 [facility] HospitalUrine Opiates Eqrfxo2437-71-08 10:14:00* Test Item Value Reference Range Interpretation Comments Urine Opiates Screen (test code = 26719-7) NEGATIVE NEGATIVE ALL TESTS PERFORMED MANUALLY ON [employer] TOX/SEE TESTMemorial Hermann Cypress HospitalUrine Barbiturates [id number] 10:14:00* Test Item Value Reference Range Interpretation Comments Urine Barbiturates Screen (test code = 387221079) NEGATIVE NEGA TIVE [facility] HospitalUrine Phencyclidine Uzivlp0035-92-55 10:14:00* Test Item Value Reference Range Interpretation Comments Urine Phencyclidine Screen (test code = 18262-4) NEGATIVE NEGAT HENRY [facility] HospitalUrine Amphetamines Jcslgr5740-83-83 10:14:00* Test Item Value Reference Range Interpretation Comments Urine Amphetamines Screen (test code = 79654-2) NEGATIVE NEGATI VE [facility] HospitalUrine Methamphetamines Jnpdmc1034-28-11 10:14:00* Test Item Value Reference Range Interpretation Comments Urine Methamphetamines Screen (test code = Urine Metha mphetamines Screen) NEGATIVE NEGATIVE [facility] HospitalUrine Benzodiazepines Brdxpt1865-47-21 10:14:00* Test Item Value Reference Range Interpretation Comments Urine Benzodiazepines Screen (test code = 53203-7) POSITIVE NEG ATIVE H This test provides only a screen. Positive results should be repeated by a confi rmatory test.[facility] Cocaine [facility] 2018-[facility] 10:14:00* Test Item Value Reference Range Interpretation Comments Urine Cocaine Screen (test code = 3398-5) POSITIVE NEGATIVE H This test provides only a screen. Positive results should be repeated by a confi rmatory test.[facility] 2018-06-15 10:14:00* Test Item Value Reference Range Interpretation Comments Urine Cannabinoids Screen (test code = 90881-4) POSITIVE NEGATI VE H This test provides only a screen. Positive results should be repeated by a confi rmatory test.[facility] 2018-06-15 10:14:00* Test Item Value Reference Range Interpretation Comments Urine Methadone Screen (test code = 91279-4) NEGATIVE NEGATIVE THESE RESULTS ARE FOR MEDICAL TREATMENT ONLYTHIS REPORT CONTAINS UNCONFIR MED SCREENING RESULTS*POSITIVE RESULTS WILL BE CONFIRMED BY REFERENCE LAB UPON R EQUEST CUT-OFFDRUG CLASS CONCENTRATION ng/mLAmphetamines 1000Methamphetamines 1000Cocaine Metabolite 300Opiate 300Phencyc lidine 25Cannabinoid 50Barbiturates 300Benzodiazepine 300Methadone 300[facility] [id number] 10:14:00* Test Item Value Reference Range Interpretation Comments Urine Opiates Screen (test code = 10401-2) NEGATIVE NEGATIVE ALL TESTS PERFORMED MANUALLY ON Podclass TOX/SEE TESTMem[facility] HospitalUrine Barbiturates Fbygxa7586-11-45 10:14:00* Test Item Value Reference Range Interpretation Comments Urine Barbiturates Screen (test code = 512471463) NEGATIVE NEGA TIVE [facility] HospitalU[facility] Phencyclidine Lwrghq3351-12-98 10:14:00* Test Item Value Reference Range Interpretation Comments Urine Phencyclidine Screen (test code = 14882-8) NEGATIVE NEGAT HENRY [facility] HospitalUrine Amphetamines Upijlq6236-42-41 10:14:00* Test Item Value Reference Range Interpretation Comments Urine Amphetamines Screen (test code = 50634-1) NEGATIVE NEGATI VE [facility] HospitalU[facility] Methamphetamines Frgxqc1919-64-53 10:14:00* Test Item Value Reference Range Interpretation Comments Urine Methamphetamines Screen (test code = Urine Metha mphetamines Screen) NEGATIVE NEGATIVE [facility] HospitalU[facility] Benzodiazepines Ielhje6752-64-51 10:14:00* Test Item Value Reference Range Interpretation Comments Urine Benzodiazepines Screen (test code = 39952-1) POSITIVE NEG ATIVE H This test provides only a screen. Positive results should be repeated by a confi rmatory test.[facility] 2018-06-15 10:14:00* Test Item Value Reference Range Interpretation Comments Urine Cocaine Screen (test code = 3398-5) POSITIVE NEGATIVE H This test provides only a screen. Positive results should be repeated by a confi rmatory test.[facility] Center[facility] Cannabinoids Screen 2018-06-15 10:14:00* Test Item Value Reference Range Interpretation Comments Urine Cannabinoids Screen (test code = 49391-7) POSITIVE NEGATI VE H This test provides only a screen. Positive results should be repeated by a confi rmatory test.[facility] Hospital[facility] Methadone Screen 2018-06-15 10:14:00* Test Item Value Reference Range Interpretation Comments Urine Methadone Screen (test code = 37362-3) NEGATIVE NEGATIVE THESE RESULTS ARE FOR MEDICAL TREATMENT ONLYTHIS REPORT CONTAINS UNCONFIR MED SCREENING RESULTS*POSITIVE RESULTS WILL BE CONFIRMED BY REFERENCE LAB UPON R EQUEST CUT-OFFDRUG CLASS CONCENTRATION ng/mLAmphetamines 1000Methamphetamines 1000Cocaine Metabolite 300Opiate 300Phencyc lidine 25Cannabinoid 50Barbiturates 300Benzodiazepine 300Methadone 300[facility] HospitalUrine Opiates Xbrspr1239-69-65 10:14:00* Test Item Value Reference Range Interpretation Comments Urine Opiates Screen (test code = 08279-6) NEGATIVE NEGATIVE ALL TESTS PERFORMED MANUALLY ON Podclass TOX/SEE TESTMem[facility] HospitalUrine Barbiturates Kfhheh1513-43-80 10:14:00* Test Item Value Reference Range Interpretation Comments Urine Barbiturates Screen (test code = 185008918) NEGATIVE NEGA TIVE [facility] HospitalU[facility] Phencyclidine Paquaz9963-11-88 10:14:00* Test Item Value Reference Range Interpretation Comments Urine Phencyclidine Screen (test code = 75358-4) NEGATIVE NEGAT HENRY [facility] HospitalU[facility] Amphetamines Kpadem9444-31-06 10:14:00* Test Item Value Reference Range Interpretation Comments Urine Amphetamines Screen (test code = 07379-0) NEGATIVE NEGATI VE [facility] HospitalU[facility] Methamphetamines Riimct0131-38-86 10:14:00* Test Item Value Reference Range Interpretation Comments Urine Methamphetamines Screen (test code = Urine Metha mphetamines Screen) NEGATIVE NEGATIVE [facility] HospitalU[facility] Benzodiazepines Aqbsit1669-75-43 10:14:00* Test Item Value Reference Range Interpretation Comments Urine Benzodiazepines Screen (test code = 97292-6) POSITIVE NEG ATIVE H This test provides only a screen. Positive results should be repeated by a confi rmatory test.[facility] Cocaine [facility] 2018-06-15 10:14:00* Test Item Value Reference Range Interpretation Comments Urine Cocaine Screen (test code = 3398-5) POSITIVE NEGATIVE H This test provides only a screen. Positive results should be repeated by a confi rmatory test.[facility] Cannabinoids Screen 2018-06-15 10:14:00* Test Item Value Reference Range Interpretation Comments Urine Cannabinoids Screen (test code = 76372-2) POSITIVE NEGATI VE H This test provides only a screen. Positive results should be repeated by a confi rmatory test.[facility] Methadone Screen 2018-06-15 10:14:00* Test Item Value Reference Range Interpretation Comments Urine Methadone Screen (test code = 19900-6) NEGATIVE NEGATIVE THESE RESULTS ARE FOR MEDICAL TREATMENT ONLYTHIS REPORT CONTAINS UNCONFIR MED SCREENING RESULTS*POSITIVE RESULTS WILL BE CONFIRMED BY REFERENCE LAB UPON R EQUEST CUT-OFFDRUG CLASS CONCENTRATION ng/mLAmphetamines 1000Methamphetamines 1000Cocaine Metabolite 300Opiate 300Phencyc lidine 25Cannabinoid 50Barbiturates 300Benzodiazepine 300Methadone 300[facility] HospitalUrine Opiates Wtbfqp0922-97-58 10:14:00* Test Item Value Reference Range Interpretation Comments Urine Opiates Screen (test code = 69127-4) NEGATIVE NEGATIVE ALL TESTS PERFORMED MANUALLY ON Podclass TOX/SEE TESTMem[facility] HospitalUrine Barbiturates Iwcucf4702-21-33 10:14:00* Test Item Value Reference Range Interpretation Comments Urine Barbiturates Screen (test code = 707251812) NEGATIVE NEGA TIVE [facility] HospitalU[facility] Phencyclidine Kithtn1937-34-87 10:14:00* Test Item Value Reference Range Interpretation Comments Urine Phencyclidine Screen (test code = 93910-7) NEGATIVE NEGAT HENRY [facility] HospitalU[facility] Amphetamines Flukvm5692-61-27 10:14:00* Test Item Value Reference Range Interpretation Comments Urine Amphetamines Screen (test code = 36627-5) NEGATIVE NEGATI VE [facility] HospitalU[facility] Methamphetamines Qlcaqq2238-24-56 10:14:00* Test Item Value Reference Range Interpretation Comments Urine Methamphetamines Screen (test code = Urine Metha mphetamines Screen) NEGATIVE NEGATIVE [facility] HospitalUrine Benzodiazepines Iugwix2209-48-40 10:14:00* Test Item Value Reference Range Interpretation Comments Urine Benzodiazepines Screen (test code = 24783-4) POSITIVE NEG ATIVE H This test provides only a screen. Positive results should be repeated by a confi rmatory test.[facility] Cocaine Screen 2018-06-15 10:14:00* Test Item Value Reference Range Interpretation Comments Urine Cocaine Screen (test code = 3398-5) POSITIVE NEGATIVE H This test provides only a screen. Positive results should be repeated by a confi rmatory test.[facility] Cannabinoids Screen 2018-06-15 10:14:00* Test Item Value Reference Range Interpretation Comments Urine Cannabinoids Screen (test code = 58292-3) POSITIVE NEGATI VE H This test provides only a screen. Positive results should be repeated by a confi rmatory test.[facility] Methadone Screen 2018-06-15 10:14:00* Test Item Value Reference Range Interpretation Comments Urine Methadone Screen (test code = 62727-7) NEGATIVE NEGATIVE THESE RESULTS ARE FOR MEDICAL TREATMENT ONLYTHIS REPORT CONTAINS UNCONFIR MED SCREENING RESULTS*POSITIVE RESULTS WILL BE CONFIRMED BY REFERENCE LAB UPON R EQUEST CUT-OFFDRUG CLASS CONCENTRATION ng/mLAmphetamines 1000Methamphetamines 1000Cocaine Metabolite 300Opiate 300Phencyc lidine 25Cannabinoid 50Barbiturates 300Benzodiazepine 300Methadone 300[facility] HospitalUrine Opiates Bkiavw2486-88-27 10:14:00* Test Item Value Reference Range Interpretation Comments Urine Opiates Screen (test code = 11782-4) NEGATIVE NEGATIVE ALL TESTS PERFORMED MANUALLY ON Podclass TOX/SEE TESTMem[facility] HospitalUrine Barbiturates Mmnztd7732-28-73 10:14:00* Test Item Value Reference Range Interpretation Comments Urine Barbiturates Screen (test code = 727890626) NEGATIVE NEGA TIVE [facility] HospitalU[facility] Phencyclidine Nrnzgx6525-12-99 10:14:00* Test Item Value Reference Range Interpretation Comments Urine Phencyclidine Screen (test code = 60394-0) NEGATIVE NEGAT HENRY [facility] HospitalUrine Amphetamines Fbxtzp4775-17-58 10:14:00* Test Item Value Reference Range Interpretation Comments Urine Amphetamines Screen (test code = 39315-3) NEGATIVE NEGATI VE [facility] HospitalU[facility] Methamphetamines Lbnunw5661-07-40 10:14:00* Test Item Value Reference Range Interpretation Comments Urine Methamphetamines Screen (test code = Urine Metha mphetamines Screen) NEGATIVE NEGATIVE [facility] HospitalUrine Benzodiazepines Hnvcpr5973-02-06 10:14:00* Test Item Value Reference Range Interpretation Comments Urine Benzodiazepines Screen (test code = 44010-7) POSITIVE NEG ATIVE H This test provides only a screen. Positive results should be repeated by a confi rmatory test.[facility] Cocaine Screen 2018-06-15 10:14:00* Test Item Value Reference Range Interpretation Comments Urine Cocaine Screen (test code = 3398-5) POSITIVE NEGATIVE H This test provides only a screen. Positive results should be repeated by a confi rmatory test.[facility] Cannabinoids Screen 2018-06-15 10:14:00* Test Item Value Reference Range Interpretation Comments Urine Cannabinoids Screen (test code = 90320-4) POSITIVE NEGATI VE H This test provides only a screen. Positive results should be repeated by a confi rmatory test.[facility] Methadone Screen 2018-06-15 10:14:00* Test Item Value Reference Range Interpretation Comments Urine Methadone Screen (test code = 38815-6) NEGATIVE NEGATIVE THESE RESULTS ARE FOR MEDICAL TREATMENT ONLYTHIS REPORT CONTAINS UNCONFIR MED SCREENING RESULTS*POSITIVE RESULTS WILL BE CONFIRMED BY REFERENCE LAB UPON R EQUEST CUT-OFFDRUG CLASS CONCENTRATION ng/mLAmphetamines 1000Methamphetamines 1000Cocaine Metabolite 300Opiate 300Phencyc lidine 25Cannabinoid 50Barbiturates 300Benzodiazepine 300Methadone 300[facility] HospitalUrine Opiates Jgtaqf5780-11-92 10:14:00* Test Item Value Reference Range Interpretation Comments Urine Opiates Screen (test code = 93283-9) NEGATIVE NEGATIVE ALL TESTS PERFORMED MANUALLY ON Podclass TOX/SEE TESTMem[facility] HospitalUrine Barbiturates Qwdkdk9501-10-63 10:14:00* Test Item Value Reference Range Interpretation Comments Urine Barbiturates Screen (test code = 248421475) NEGATIVE NEGA TIVE [facility] HospitalU[facility] Phencyclidine Dwjetu9849-16-07 10:14:00* Test Item Value Reference Range Interpretation Comments Urine Phencyclidine Screen (test code = 79195-1) NEGATIVE NEGAT HENRY [facility] HospitalUrine Amphetamines Eqjlmm2836-62-21 10:14:00* Test Item Value Reference Range Interpretation Comments Urine Amphetamines Screen (test code = 83289-6) NEGATIVE NEGATI VE [facility] HospitalU[facility] Methamphetamines Eqprbd8572-12-47 10:14:00* Test Item Value Reference Range Interpretation Comments Urine Methamphetamines Screen (test code = Urine Metha mphetamines Screen) NEGATIVE NEGATIVE [facility] HospitalUrine Benzodiazepines Nuzmui7068-76-65 10:14:00* Test Item Value Reference Range Interpretation Comments Urine Benzodiazepines Screen (test code = 42199-0) POSITIVE NEG ATIVE H This test provides only a screen. Positive results should be repeated by a confi rmatory test.[facility] Cocaine Screen 2018-06-15 10:14:00* Test Item Value Reference Range Interpretation Comments Urine Cocaine Screen (test code = 3398-5) POSITIVE NEGATIVE H This test provides only a screen. Positive results should be repeated by a confi rmatory test.[facility] Cannabinoids Screen 2018-06-15 10:14:00* Test Item Value Reference Range Interpretation Comments Urine Cannabinoids Screen (test code = 75991-2) POSITIVE NEGATI VE H This test provides only a screen. Positive results should be repeated by a confi rmatory test.[facility] Methadone Screen 2018-06-15 10:14:00* Test Item Value Reference Range Interpretation Comments Urine Methadone Screen (test code = 87375-9) NEGATIVE NEGATIVE THESE RESULTS ARE FOR MEDICAL TREATMENT ONLYTHIS REPORT CONTAINS UNCONFIR MED SCREENING RESULTS*POSITIVE RESULTS WILL BE CONFIRMED BY REFERENCE LAB UPON R EQUEST CUT-OFFDRUG CLASS CONCENTRATION ng/mLAmphetamines 1000Methamphetamines 1000Cocaine Metabolite 300Opiate 300Phencyc lidine 25Cannabinoid 50Barbiturates 300Benzodiazepine 300Methadone 300[facility] ResourcesU[facility] Kczup6459-86-21 10:12:00* Test Item Value Reference Range Interpretation Comments Urine Color (test code = 5778-6) YELLOW YELLOW [facility] HospitalUrine Mxyywok4370-88-69 10:12:00* Test Item Value Reference Range Interpretation Comments Urine Clarity (test code = 71069-9) CLEAR CLEAR [facility] HospitalUrine Specific Hlmmxri9086-87-40 10:12:00 * Test Item Value Reference Range Interpretation Comments Urine Specific [place] (test code = 5811-5) 1.010 1.010-1.02 5 [facility] HospitalU[facility] eD4395-25-45 10:12:00* Test Item Value Reference Range Interpretation Comments Urine pH (test code = 93070-4) 6 5-7 [facility] Leukocyte Mtcpwlhb5336-66-96 10:12:00* Test Item Value Reference Range Interpretation Comments Urine Leukocyte Esterase (test code = 5799-2) TRACE NEGATIVE H [facility] HospitalU[facility] Myveavt4175-74-01 10:12:00* Test Item Value Reference Range Interpretation Comments Urine Nitrite (test code = 27713-1) NEGATIVE NEGATIVE [facility] HospitalU[facility] Txgwkwx5344-13-20 10:12:00* Test Item Value Reference Range Interpretation Comments Urine Protein (test code = 5804-0) NEGATIVE NEGATIVE [facility] HospitalUrine Glucose (UA)2018-06-15 10:12:00* Test Item Value Reference Range Interpretation Comments Urine Glucose (UA) (test code = 2349-9) NEGATIVE NEGATIVE [facility] HospitalUrine Lmfqszc4024-46-85 10:12:00* Test Item Value Reference Range Interpretation Comments Urine Ketones (test code = 29754-5) NEGATIVE NEGATIVE [facility] HospitalU[facility] Vzmltumtiqvf3424-35-24 10:12:00* Test Item Value Reference Range Interpretation Comments Urine Urobilinogen (test code = 53688-1) 0.2 0.2-1 [facility] HospitalU[facility] Vchzhodbr8083-18-24 10:12:00* Test Item Value Reference Range Interpretation Comments Urine Bilirubin (test code = 1978-6) NEGATIVE NEGATIVE [facility] HospitalU[facility] Kvktd6745-93-24 10:12:00* Test Item Value Reference Range Interpretation Comments Urine Blood (test code = 00741-7) NEGATIVE NEGATIVE [facility] HospitalWhite Blood Fuqwo6283-38-24 10:11:00* Test Item Value Reference Range Interpretation Comments White Blood Count (test code = 6690-2) 4.92 4.8-10.8 [facility] HospitalRed Blood Uvtuz0040-23-38 10:11:00* Test Item Value Reference Range Interpretation Comments Red Blood Count (test code = 789-8) 4.31 3.6-5.1 [facility] HospitalHemoglobin2019-01-15 10:11:00* Test Item Value Reference Range Interpretation Comments Hemoglobin (test code = 95700-6) 12.7 12.0-16.0 [facility] HospitalHematocrit2019-01-15 10:11:00* Test Item Value Reference Range Interpretation Comments Hematocrit (test code = 4544-3) 38.1 34.2-44.1 [facility] HospitalMean Corpuscular Qzxamt4750-37-90 10:11:00* Test Item Value Reference Range Interpretation Comments Mean Corpuscular Volume (test code = 787-2) 88.4 81-99 [facility] HospitalMean Corpuscular Kcaecejihq5277-23-70 10:11:00* Test Item Value Reference Range Interpretation Comments Mean Corpuscular Hemoglobin (test code = 785-6) 29.5 28-32 [facility] HospitalMean Corpuscular Hemoglobin Concent 2018-06-15 10:11:00* Test Item Value Reference Range Interpretation Comments Mean Corpuscular Hemoglobin Concent (test code = 786-4) 33.3 31-35 [facility] HospitalRed Cell Distribution Wdiln1415-70-59 10:11:00* Test Item Value Reference Range Interpretation Comments Red Cell Distribution Width (test code = 88547-7) 13.5 11.7 -14.4 [facility] HospitalPlatelet Npqng7683-88-17 10:11:00* Test Item Value Reference Range Interpretation Comments Platelet Count (test code = 777-3) 297 140-360 [facility] HospitalNeutrophils (%) (Auto)2018-06-15 10:11:00 * Test Item Value Reference Range Interpretation Comments Neutrophils (%) (Auto) (test code = 31497-7) 60.6 38.7-80.0 [facility] HospitalLymphocytes (%) (Auto)2018-06-15 10:11:00 * Test Item Value Reference Range Interpretation Comments Lymphocytes (%) (Auto) (test code = 736-9) 28.9 18.0-39.1 [facility] HospitalMonocytes (%) (Auto)2018-06-15 10:11:00* Test Item Value Reference Range Interpretation Comments Monocytes (%) (Auto) (test code = 5905-5) 6.7 4.4-11.3 [facility] HospitalEosinophils (%) (Auto)2018-06-15 10:11:00 * Test Item Value Reference Range Interpretation Comments Eosinophils (%) (Auto) (test code = 713-8) 1.6 0.0-6.0 [facility] HospitalBasophils (%) (Auto)2018-06-15 10:11:00* Test Item Value Reference Range Interpretation Comments Basophils (%) (Auto) (test code = 706-2) 1.0 0.0-1.0 [facility] HospitalIM GRANULOCYTES %2018-06-15 10:11:00* Test Item Value Reference Range Interpretation Comments IM GRANULOCYTES % (test code = IM GRANULOCYTES %) 1.2 0.0- 1.0 H [facility] HospitalNeutrophils # (Auto)2018-06-15 10:11:00* Test Item Value Reference Range Interpretation Comments Neutrophils # (Auto) (test code = 751-8) 3.0 2.1-6.9 [facility] HospitalLymphocytes # (Auto)2018-06-15 10:11:00* Test Item Value Reference Range Interpretation Comments Lymphocytes # (Auto) (test code = 18645-3) 1.4 1.0-3.2 [facility] HospitalMonocytes # (Auto)2018-06-15 10:11:00* Test Item Value Reference Range Interpretation Comments Monocytes # (Auto) (test code = 742-7) 0.3 0.2-0.8 [facility] HospitalEosinophils # (Auto)2018-06-15 10:11:00* Test Item Value Reference Range Interpretation Comments Eosinophils # (Auto) (test code = 711-2) 0.1 0.0-0.4 [facility] HospitalBasophils # (Auto)2018-06-15 10:11:00* Test Item Value Reference Range Interpretation Comments Basophils # (Auto) (test code = 704-7) 0.1 0.0-0.1 [facility] HospitalAbsolute Immature Granulocyte (auto 2018-06-15 10:11:00* Test Item Value Reference Range Interpretation Comments Absolute Immature Granulocyte (auto (alexa t code = Absolute Immature Granulocyte (auto) 0.06 0-0.1 [facility] HospitalUrine Xirsarm4345-86-70 10:44:00* Test Item Value Reference Range Interpretation Comments Urine Culture (test code = 630-4) Organism: ESCHERICHIA COLI [facility] HospitalUrine Rbmccvq6581-07-94 10:44:00* Test Item Value Reference Range Interpretation Comments Urine Culture (test code = 630-4) Organism: ESCHERICHIA COLI [facility] HospitalUrine Acwhvcx0193-30-19 10:44:00* Test Item Value Reference Range Interpretation Comments Urine Culture (test code = 630-4) Organism: ESCHERICHIA COLI [facility] ResourcesUrine Noquuic9507-84-91 10:44:00* Test Item Value Reference Range Interpretation Comments Urine Culture (test code = 630-4) Organism: ESCHERICHIA COLI [facility] ResourcesCT ABDOMEN/PELVIS QS3169-54-44 11:29:00 [facility] [address] [address] Patient Name: ANGELA ESPINOSA MR #: [id number] : 1975 Age/Sex: 42/F Req #: [id number] Adm Physician: Ordered by: EROS SIDHU MD Report #: [id number] Location: ER Room/Bed: Procedure: [id number] CT/CT ABDOMEN/PELVIS WO Exam Date: 06/03/18 Exam Ti me: 0950 REPORT STATUS: Signed E XAM: CT Abdomen and Pelvis WITHOUT contrast INDICATION: Renal stone. COMPARISON: CT Abdomen/Pelvis 03/28/18. TECHNIQUE: Abdomen and pelvis we re scanned utilizing a multidetector helical scanner from the lung base to the pubic symphysis without administration of IV contrast. Absence of intravenous contrast decreases sensitivity for detection of focal lesions and vascular pa thology. Coronal and sagittal reformations were obtained. Routine protocol was performed. IV CONTRAST: None. ORAL CONTRAST: Lois er RADIATION DOSE: Total DLP:861 mGy*cm Dose modulation, iter ative reconstruction, and/or weight based adjustment of the mA/kV was utilized to reduce the radiation dose to as low as reasonably achievable. FINDIN GS: LINES and TUBES: None. LOWER THORAX: Patchy dependent atelectasis. HEPATOBILIARY: Diffuse fatty liver. No focal hepatic lesions. No biliary ductal dilation. Status post cholecystectomy. SPLEEN: No splenomegaly. PANCREAS: No focal masses or ductal dilatation. ADRENALS: No adrenal no dules KIDNEYS/URETERS: No hydronephrosis. No cystic or solid mass lesi ons. Punctate 2 mm right mid pole renal stone. 4 mm left mid pole renal stone . Two 2 mm left lower pole renal stones. GI TRACT: No abnormal distentio n, wall thickening, or evidence of bowel obstruction. Appendix is normal . PELVIC ORGANS/BLADDER: Status post hysterectomy. The bladder is unremarka ble in appearance. LYMPH NODES: No lymphadenopathy. VESSELS: Unremar kable. PERITONEUM / RETROPERITONEUM: No free air. Trace pelvic free fluid. BONES/SOFT TISSUES: No acute bony findings. Stable postoperative appearance of the anterior abdominal wall mesh repair. No evidence of recurrent hernia. IMPRESSION: Bilateral nonobstructing renal stones, measuring up to 4 mm in the left mid pole. Hepatic steatosis. Stable postoperative appea rody of the abdominal wall without evidence of recurrent hernia. Signed by: Dr. Bonita Asher MD on 06/03/2018 11:36 AM Dictated By: BONITA ASHER MD E lectronically Signed By: BONITA ASHER MD on 06/03/18 1136 Transcribed By: LULU on 06/03/18 1136 COPY TO: EROS SIDHU MD Sodium Txjlt6935-21-94 10:03:00* Test Item Value Reference Range Interpretation Comments Sodium Level (test code = 2951-2) 134 136-145 L [facility] HospitalPotassium Ragxt1412-49-84 10:03:00* Test Item Value Reference Range Interpretation Comments Potassium Level (test code = 2823-3) 3.7 3.5-5.1 [facility] HospitalChloride Lmehn6027-34-73 10:03:00* Test Item Value Reference Range Interpretation Comments Chloride Level (test code = 2075-0) 103 98-107 [facility] HospitalCarbon Dioxide Nrlsw7850-93-72 10:03:00* Test Item Value Reference Range Interpretation Comments Carbon Dioxide Level (test code = 8-9) 24 22-29 [facility] HospitalAnion Wsf7186-23-81 10:03:00* Test Item Value Reference Range Interpretation Comments Anion Gap (test code = 65107-5) 10.7 8-16 [facility] HospitalBlood Urea Govcdrup6864-43-36 10:03:00* Test Item Value Reference Range Interpretation Comments Blood Urea Nitrogen (test code = 3094-0) 10 12-24 [facility] HospitalCreatinine2019-01-03 10:03:00* Test Item Value Reference Range Interpretation Comments Creatinine (test code = 2160-0) 0.82 0.57-1.11 [facility] HospitalBUN/Creatinine Vuyuw3583-90-96 10:03:00* Test Item Value Reference Range Interpretation Comments BUN/Creatinine Ratio (test code = 3097-3) 12 11-23 [facility] HospitalEstimat Glomerular Filtration Rate 2018-06-03 10:03:00* Test Item Value Reference Range Interpretation Comments Estimat Glomerular Filtration Rate (test code = 517495481) > 60 >60 Ranges were taken from the National Kidney Disease Education Program and the [facility] literature.Reference ranges:60 or greater: Onsrrr59-24 ( for 3 consecutive months): Chronic kidney disease 15 or less: Kidney failureMemorial Hermann Cypress HospitalGlucose Wvevn2853-15-77 10:03:00* Test Item Value Reference Range Interpretation Comments Glucose Level (test code = FAH8279) 96 74-118 [facility] HospitalCalcium Sdetl4253-12-31 10:03:00* Test Item Value Reference Range Interpretation Comments Calcium Level (test code = 06123-9) 8.9 8.4-10.2 [facility] HospitalMagnesium Ratxd1427-96-71 10:03:00* Test Item Value Reference Range Interpretation Comments Magnesium Level (test code = 31350-8) 1.9 1.3-2.1 [facility]Total Bugmnfpkp7327-90-97 10:03:00* Test Item Value Reference Range Interpretation Comments Total Bilirubin (test code = 1975-2) 0.5 0.2-1.2 [facility] HospitalAspartate Amino Transf (AST/SGOT) 2018-06-03 10:03:00* Test Item Value Reference Range Interpretation Comments Aspartate Amino Transf (AST/SGOT) (test code = Aspartate Amino Transf (AST/SGOT)) 14 5-34 [facility] HospitalAlanine Aminotransferase (ALT/SGPT) 2018-06-03 10:03:00* Test Item Value Reference Range Interpretation Comments Alanine Aminotransferase (ALT/SGPT) (test code = 1742-6) 19 0-55 [facility]Total Vxjqgtl7100-57-88 10:03:00* Test Item Value Reference Range Interpretation Comments Total Protein (test code = 2885-2) 6.3 6.5-8.1 L [facility] HospitalAlbumin2019-01-03 10:03:00* Test Item Value Reference Range Interpretation Comments Albumin (test code = 1751-7) 3.5 3.5-5.0 [facility] HospitalGlobulin2019-01-03 10:03:00* Test Item Value Reference Range Interpretation Comments Globulin (test code = 92244-9) 2.8 2.3-3.5 [facility] HospitalAlbumin/Globulin Jmyxw1694-70-87 10:03:00 * Test Item Value Reference Range Interpretation Comments Albumin/Globulin Ratio (test code = 1759-0) 1.3 0.8-2.0 [facility] HospitalAlkaline Rxqaimpfkeb3401-18-53 10:03:00* Test Item Value Reference Range Interpretation Comments Alkaline Phosphatase (test code = 6768-6) 84 40-150 [facility] HospitalMagnesium Drsra9976-90-81 10:03:00* Test Item Value Reference Range Interpretation Comments Magnesium Level (test code = 83898-1) 1.9 1.3-2.1 [facility] HospitalMagnesium Nkvhz8323-61-67 10:03:00* Test Item Value Reference Range Interpretation Comments Magnesium Level (test code = 72163-7) 1.9 1.3-2.1 [facility] HospitalMagnesium Tgrox0199-90-39 10:03:00* Test Item Value Reference Range Interpretation Comments Magnesium Level (test code = 13219-7) 1.9 1.3-2.1 [facility] HospitalMagnesium Jflki2495-49-59 10:03:00* Test Item Value Reference Range Interpretation Comments Magnesium Level (test code = 31934-9) 1.9 1.3-2.1 [facility] HospitalWhite Blood Mxwtm4661-30-85 09:37:00* Test Item Value Reference Range Interpretation Comments White Blood Count (test code = 6690-2) 5.42 4.8-10.8 [facility] HospitalRed Blood Zkfjc9526-38-53 09:37:00* Test Item Value Reference Range Interpretation Comments Red Blood Count (test code = 789-8) 4.21 3.6-5.1 [facility] HospitalHemoglobin2019-01-03 09:37:00* Test Item Value Reference Range Interpretation Comments Hemoglobin (test code = 56371-5) 12.5 12.0-16.0 [facility] HospitalHematocrit2019-01-03 09:37:00* Test Item Value Reference Range Interpretation Comments Hematocrit (test code = 4544-3) 36.6 34.2-44.1 [facility] HospitalMean Corpuscular Inoiuo7903-91-08 09:37:00* Test Item Value Reference Range Interpretation Comments Mean Corpuscular Volume (test code = 787-2) 86.9 81-99 [facility] HospitalMean Corpuscular Juawxuwnje3027-09-94 09:37:00* Test Item Value Reference Range Interpretation Comments Mean Corpuscular Hemoglobin (test code = 785-6) 29.7 28-32 [facility] HospitalMean Corpuscular Hemoglobin Concent 2018-06-03 09:37:00* Test Item Value Reference Range Interpretation Comments Mean Corpuscular Hemoglobin Concent (test code = 786-4) 34.2 31-35 [facility] HospitalRed Cell Distribution Vanbq5395-40-81 09:37:00* Test Item Value Reference Range Interpretation Comments Red Cell Distribution Width (test code = 95335-1) 13.3 11.7 -14.4 [facility] HospitalPlatelet Aowoz8880-06-61 09:37:00* Test Item Value Reference Range Interpretation Comments Platelet Count (test code = 777-3) 237 140-360 [facility] HospitalNeutrophils (%) (Auto)2018-06-03 09:37:00 * Test Item Value Reference Range Interpretation Comments Neutrophils (%) (Auto) (test code = 20276-1) 65.3 38.7-80.0 [facility] HospitalLymphocytes (%) (Auto)2018-06-03 09:37:00 * Test Item Value Reference Range Interpretation Comments Lymphocytes (%) (Auto) (test code = 736-9) 26.9 18.0-39.1 [facility] HospitalMonocytes (%) (Auto)2018-06-03 09:37:00* Test Item Value Reference Range Interpretation Comments Monocytes (%) (Auto) (test code = 5905-5) 5.2 4.4-11.3 [facility] HospitalEosinophils (%) (Auto)2018-06-03 09:37:00 * Test Item Value Reference Range Interpretation Comments Eosinophils (%) (Auto) (test code = 713-8) 1.5 0.0-6.0 [facility] HospitalBasophils (%) (Auto)2018-06-03 09:37:00* Test Item Value Reference Range Interpretation Comments Basophils (%) (Auto) (test code = 706-2) 0.7 0.0-1.0 [facility] HospitalIM GRANULOCYTES %2018-06-03 09:37:00* Test Item Value Reference Range Interpretation Comments IM GRANULOCYTES % (test code = IM GRANULOCYTES %) 0.4 0.0- 1.0 [facility] HospitalNeutrophils # (Auto)2018-06-03 09:37:00* Test Item Value Reference Range Interpretation Comments Neutrophils # (Auto) (test code = 751-8) 3.5 2.1-6.9 [facility] HospitalLymphocytes # (Auto)2018-06-03 09:37:00* Test Item Value Reference Range Interpretation Comments Lymphocytes # (Auto) (test code = 62562-4) 1.5 1.0-3.2 [facility] HospitalMonocytes # (Auto)2018-06-03 09:37:00* Test Item Value Reference Range Interpretation Comments Monocytes # (Auto) (test code = 742-7) 0.3 0.2-0.8 [facility] HospitalEosinophils # (Auto)2018-06-03 09:37:00* Test Item Value Reference Range Interpretation Comments Eosinophils # (Auto) (test code = 711-2) 0.1 0.0-0.4 [facility] HospitalBasophils # (Auto)2018-06-03 09:37:00* Test Item Value Reference Range Interpretation Comments Basophils # (Auto) (test code = 704-7) 0.0 0.0-0.1 [facility] HospitalAbsolute Immature Granulocyte (auto 2018-06-03 09:37:00* Test Item Value Reference Range Interpretation Comments Absolute Immature Granulocyte (auto (alexa t code = Absolute Immature Granulocyte (auto) 0.02 0-0.1 [facility] HospitalUrine REN2372-83-87 09:22:00* Test Item Value Reference Range Interpretation Comments Urine WBC (test code = 5821-4) 0-5 0-5 [facility] HospitalUrine OLW4885-54-70 09:22:00* Test Item Value Reference Range Interpretation Comments Urine RBC (test code = 17379-2) NONE 0-5 [facility] HospitalUrine Dyxmunwn5880-72-90 09:22:00* Test Item Value Reference Range Interpretation Comments Urine Bacteria (test code = 33283-7) MODERATE NONE H [facility] HospitalUrine Epithelial Rfuak2562-81-09 09:22:00 * Test Item Value Reference Range Interpretation Comments Urine Epithelial Cells (test code = 54410-0) RARE NONE [facility] HospitalUrine Nwnsc7137-14-45 09:11:00* Test Item Value Reference Range Interpretation Comments Urine Color (test code = 5778-6) YELLOW YELLOW [facility] HospitalUrine Rsgwldw2961-38-60 09:11:00* Test Item Value Reference Range Interpretation Comments Urine Clarity (test code = 29970-1) SL CLOUDY CLEAR [facility] HospitalUrine Specific Rogeclo5621-82-43 09:11:00 * Test Item Value Reference Range Interpretation Comments Urine Specific [place] (test code = 5811-5) 1.010 1.010-1.02 5 [facility] HospitalUrine xZ6428-71-12 09:11:00* Test Item Value Reference Range Interpretation Comments Urine pH (test code = 08086-7) 6.5 5-7 [facility] Leukocyte Ksbasztk9006-06-03 09:11:00* Test Item Value Reference Range Interpretation Comments Urine Leukocyte Esterase (test code = 5799-2) TRACE NEGATIVE H [facility] Xlhaddg4005-88-39 09:11:00* Test Item Value Reference Range Interpretation Comments Urine Nitrite (test code = 00166-4) NEGATIVE NEGATIVE [facility] Buhdwai7001-48-34 09:11:00* Test Item Value Reference Range Interpretation Comments Urine Protein (test code = 5804-0) NEGATIVE NEGATIVE [facility] Glucose (UA)2018-06-03 09:11:00* Test Item Value Reference Range Interpretation Comments Urine Glucose (UA) (test code = 2349-9) NEGATIVE NEGATIVE [facility] Wpjzeil7411-73-87 09:11:00* Test Item Value Reference Range Interpretation Comments Urine Ketones (test code = 64145-5) NEGATIVE NEGATIVE [facility] Dklsutmgoenl6779-99-76 09:11:00* Test Item Value Reference Range Interpretation Comments Urine Urobilinogen (test code = 68546-9) 0.2 0.2-1 [facility] HospitalUrine Kdsgsoana1810-29-48 09:11:00* Test Item Value Reference Range Interpretation Comments Urine Bilirubin (test code = 1978-6) NEGATIVE NEGATIVE [facility] Drmbg7452-93-22 09:11:00* Test Item Value Reference Range Interpretation Comments Urine Blood (test code = 18758-3) NEGATIVE NEGATIVE [facility] Qrbv2650-78-98 09:11:00* Test Item Value Reference Range Interpretation Comments Urine Test (test code = 2106-3) NEGATIVE NEGATIVE [facility] HospitalUrine Wupn8750-67-08 09:11:00* Test Item Value Reference Range Interpretation Comments Urine Test (test code = 2106-3) NEGATIVE NEGATIVE [facility] HospitalUrine Ziex3083-70-10 09:11:00* Test Item Value Reference Range Interpretation Comments Urine Test (test code = 2106-3) NEGATIVE NEGATIVE [facility] HospitalU[facility] Myzr1688-44-98 09:11:00* Test Item Value Reference Range Interpretation Comments Urine Test (test code = 2106-3) NEGATIVE NEGATIVE [facility] Vzub4709-83-89 09:11:00* Test Item Value Reference Range Interpretation Comments Urine Test (test code = 2106-3) NEGATIVE NEGATIVE [facility] Yupe4160-99-96 09:11:00* Test Item Value Reference Range Interpretation Comments Urine Test (test code = 2106-3) NEGATIVE NEGATIVE [facility] HospitalU[facility] Qpye4561-21-40 09:11:00* Test Item Value Reference Range Interpretation Comments Urine Test (test code = 2106-3) NEGATIVE NEGATIVE [facility] HospitalUrine Opiates Yyoxjt8757-63-02 11:04:00* Test Item Value Reference Range Interpretation Comments Urine Opiates Screen (test code = 32599-5) NEGATIVE NEGATIVE ALL TESTS PERFORMED MANUALLY ON Podclass TOX/SEE TESTMem[facility]ann Cypress HospitalUrine Barbiturates Swqayy4070-11-24 11:04:00* Test Item Value Reference Range Interpretation Comments Urine Barbiturates Screen (test code = 073542040) NEGATIVE NEGA TIVE [facility] HospitalU[facility] Phencyclidine Yiijnt8179-51-58 11:04:00* Test Item Value Reference Range Interpretation Comments Urine Phencyclidine Screen (test code = 43436-5) NEGATIVE NEGAT HENRY [facility] HospitalUrine Amphetamines Nsootk3757-02-94 11:04:00* Test Item Value Reference Range Interpretation Comments Urine Amphetamines Screen (test code = 94780-3) NEGATIVE NEGATI VE [facility] HospitalUrine Methamphetamines Kehaut0169-91-76 11:04:00* Test Item Value Reference Range Interpretation Comments Urine Methamphetamines Screen (test code = Urine Metha mphetamines Screen) NEGATIVE NEGATIVE [facility] HospitalU[facility] Benzodiazepines Zbylsz6730-73-85 11:04:00* Test Item Value Reference Range Interpretation Comments Urine Benzodiazepines Screen (test code = 81455-2) POSITIVE NEG ATIVE H This test provides only a screen. Positive results should be repeated by a confi rmatory test.[facility] HospitalU[facility] Cocaine Screen 2018-04-28 11:04:00* Test Item Value Reference Range Interpretation Comments Urine Cocaine Screen (test code = 3398-5) NEGATIVE NEGATIVE [facility] HospitalU[facility] Cannabinoids Osyqwu0718-13-08 11:04:00* Test Item Value Reference Range Interpretation Comments Urine Cannabinoids Screen (test code = 29107-2) POSITIVE NEGATI VE H This test provides only a screen. Positive results should be repeated by a confi rmatory test.[facility] HospitalU[facility] Methadone Screen 2018-04-28 11:04:00* Test Item Value Reference Range Interpretation Comments Urine Methadone Screen (test code = 46542-2) NEGATIVE NEGATIVE THESE RESULTS ARE FOR MEDICAL TREATMENT ONLYTHIS REPORT CONTAINS UNCONFIR MED SCREENING RESULTS*POSITIVE RESULTS WILL BE CONFIRMED BY REFERENCE LAB UPON R EQUEST CUT-OFFDRUG CLASS CONCENTRATION ng/mLAmphetamines 1000Methamphetamines 1000Cocaine Metabolite 300Opiate 300Phencyc lidine 25Cannabinoid 50Barbiturates 300Benzodiazepine 300Methadone 300[facility] HospitalUrine Opiates Lvsqth3961-84-30 11:04:00* Test Item Value Reference Range Interpretation Comments Urine Opiates Screen (test code = 50056-9) NEGATIVE NEGATIVE ALL TESTS PERFORMED MANUALLY ON Podclass TOX/SEE TESTMemorial Hermann Cypress HospitalUrine Barbiturates Gjouvy2053-14-22 11:04:00* Test Item Value Reference Range Interpretation Comments Urine Barbiturates Screen (test code = 758816456) NEGATIVE NEGA TIVE [facility] HospitalU[facility] Phencyclidine Zvspiq1470-03-19 11:04:00* Test Item Value Reference Range Interpretation Comments Urine Phencyclidine Screen (test code = 98090-6) NEGATIVE NEGAT HENRY [facility] HospitalUrine Amphetamines Rtqoij7718-19-61 11:04:00* Test Item Value Reference Range Interpretation Comments Urine Amphetamines Screen (test code = 41218-5) NEGATIVE NEGATI VE [facility] HospitalU[facility] Methamphetamines Ervgei2568-44-16 11:04:00* Test Item Value Reference Range Interpretation Comments Urine Methamphetamines Screen (test code = Urine Metha mphetamines Screen) NEGATIVE NEGATIVE [facility] HospitalUrine Benzodiazepines Vvwtyp6332-20-80 11:04:00* Test Item Value Reference Range Interpretation Comments Urine Benzodiazepines Screen (test code = 20259-3) POSITIVE NEG ATIVE H This test provides only a screen. Positive results should be repeated by a confi rmatory test.[facility] HospitalU[facility] Cocaine Screen 2018-04-28 11:04:00* Test Item Value Reference Range Interpretation Comments Urine Cocaine Screen (test code = 3398-5) NEGATIVE NEGATIVE [facility] HospitalUrine Cannabinoids Qyppsa4251-35-09 11:04:00* Test Item Value Reference Range Interpretation Comments Urine Cannabinoids Screen (test code = 01232-2) POSITIVE NEGATI VE H This test provides only a screen. Positive results should be repeated by a confi rmatory test.[facility] HospitalUrine Methadone Screen 2018-04-28 11:04:00* Test Item Value Reference Range Interpretation Comments Urine Methadone Screen (test code = 06570-5) NEGATIVE NEGATIVE THESE RESULTS ARE FOR MEDICAL TREATMENT ONLYTHIS REPORT CONTAINS UNCONFIR MED SCREENING RESULTS*POSITIVE RESULTS WILL BE CONFIRMED BY REFERENCE LAB UPON R EQUEST CUT-OFFDRUG CLASS CONCENTRATION ng/mLAmphetamines 1000Methamphetamines 1000Cocaine Metabolite 300Opiate 300Phencyc lidine 25Cannabinoid 50Barbiturates 300Benzodiazepine 300Methadone 300[facility]odium Krhjp7496-61-71 09:47:00* Test Item Value Reference Range Interpretation Comments Sodium Level (test code = 2951-2) 134 136-145 L [facility] HospitalPotassium Pqyyt0223-86-10 09:47:00* Test Item Value Reference Range Interpretation Comments Potassium Level (test code = 2823-3) 3.9 3.5-5.1 [facility] HospitalChloride Ioutj7335-01-20 09:47:00* Test Item Value Reference Range Interpretation Comments Chloride Level (test code = 2075-0) 103 98-107 [facility] HospitalCarbon Dioxide Ydxeo0751-14-53 09:47:00* Test Item Value Reference Range Interpretation Comments Carbon Dioxide Level (test code = 2028-9) 23 22-29 [facility] HospitalAnion Mlh5699-05-75 09:47:00* Test Item Value Reference Range Interpretation Comments Anion Gap (test code = 35858-4) 11.9 8-16 [facility] HospitalBlood Urea Thcoyfsu3165-48-26 09:47:00* Test Item Value Reference Range Interpretation Comments Blood Urea Nitrogen (test code = 3094-0) 11 7-26 [facility] HospitalCreatinine2018-11-28 09:47:00* Test Item Value Reference Range Interpretation Comments Creatinine (test code = 2160-0) 0.84 0.57-1.11 [facility] HospitalBUN/Creatinine Eeeoe1337-28-16 09:47:00* Test Item Value Reference Range Interpretation Comments BUN/Creatinine Ratio (test code = 3097-3) 13 6- [facility] HospitalEstimat Glomerular Filtration Rate 2018-04-28 09:47:00* Test Item Value Reference Range Interpretation Comments Estimat Glomerular Filtration Rate (test code = 797466952) > 60 >60 Ranges were taken from the National Kidney Disease Education Program and the [facility] Kidney Foundation literature.Reference ranges:60 or greater: Lrmevz31-93 ( for 3 consecutive months): Chronic kidney disease 15 or less: Kidney failureMemorial Hermann Cypress HospitalGlucose Lcpiw0987-43-03 09:47:00* Test Item Value Reference Range Interpretation Comments Glucose Level (test code = DPE7833) 121 74-118 H [facility] HospitalCalcium Bomqj8361-27-62 09:47:00* Test Item Value Reference Range Interpretation Comments Calcium Level (test code = 24960-3) 9.1 8.4-10.2 [facility] HospitalTotal Csqafyiom2487-63-67 09:47:00* Test Item Value Reference Range Interpretation Comments Total Bilirubin (test code = 1975-2) 0.3 0.2-1.2 [facility] HospitalAspartate Amino Transf (AST/SGOT) 2018-04-28 09:47:00* Test Item Value Reference Range Interpretation Comments Aspartate Amino Transf (AST/SGOT) (test code = Aspartate Amino Transf (AST/SGOT)) 19 5-34 [facility] HospitalAlanine Aminotransferase (ALT/SGPT) 2018-04-28 09:47:00* Test Item Value Reference Range Interpretation Comments Alanine Aminotransferase (ALT/SGPT) (test code = 1742-6) 27 0-55 [facility] Curjoyj2563-03-62 09:47:00* Test Item Value Reference Range Interpretation Comments Total Protein (test code = 2885-2) 6.9 6.5-8.1 [facility] HospitalAlbumin2018-11-28 09:47:00* Test Item Value Reference Range Interpretation Comments Albumin (test code = 1751-7) 3.6 3.5-5.0 [facility] HospitalGlobulin2018-11-28 09:47:00* Test Item Value Reference Range Interpretation Comments Globulin (test code = 69219-0) 3.3 2.3-3.5 [facility] HospitalAlbumin/Globulin Czjgy7784-35-72 09:47:00 * Test Item Value Reference Range Interpretation Comments Albumin/Globulin Ratio (test code = 1759-0) 1.1 0.8-2.0 [facility] HospitalAlkaline Hjntdouisgk3735-87-52 09:47:00* Test Item Value Reference Range Interpretation Comments Alkaline Phosphatase (test code = 6768-6) 108 40-150 [facility] HospitalLipase2018-11-28 09:47:00* Test Item Value Reference Range Interpretation Comments Lipase (test code = 3040-3) 29 8-78 [facility] HospitalLipase2018-11-28 09:47:00* Test Item Value Reference Range Interpretation Comments Lipase (test code = 3040-3) 29 8-78 [facility] HospitalUrine NUF8083-86-46 09:07:00* Test Item Value Reference Range Interpretation Comments Urine WBC (test code = 5821-4) 0-5 0-5 [facility] HospitalUrine GOR4906-80-31 09:07:00* Test Item Value Reference Range Interpretation Comments Urine RBC (test code = 91244-2) 0-5 0-5 [facility] HospitalUrine Aeeewbus3958-66-43 09:07:00* Test Item Value Reference Range Interpretation Comments Urine Bacteria (test code = 83101-7) MODERATE NONE H [facility] Epithelial Lncrq0119-66-22 09:07:00 * Test Item Value Reference Range Interpretation Comments Urine Epithelial Cells (test code = 89639-2) MODERATE NONE [facility] HospitalUrine Wcnby8596-80-71 09:03:00* Test Item Value Reference Range Interpretation Comments Urine Color (test code = 5778-6) YELLOW YELLOW [facility] HospitalUrine Zxpowwv3555-01-41 09:03:00* Test Item Value Reference Range Interpretation Comments Urine Clarity (test code = 24023-8) HAZY CLEAR [facility] HospitalUrine Specific Sxxansr9621-72-82 09:03:00 * Test Item Value Reference Range Interpretation Comments Urine Specific [place] (test code = 5811-5) 1.005 1.010-1.02 5 L [facility] HospitalUrine vJ4256-99-32 09:03:00* Test Item Value Reference Range Interpretation Comments Urine pH (test code = 54663-4) 6 5-7 [facility] HospitalUrine Leukocyte Ylxurzni8909-00-55 09:03:00* Test Item Value Reference Range Interpretation Comments Urine Leukocyte Esterase (test code = 5799-2) NEGATIVE NEGATIVE [facility] HospitalUrine Vfcwyae2651-92-87 09:03:00* Test Item Value Reference Range Interpretation Comments Urine Nitrite (test code = 52694-0) NEGATIVE NEGATIVE [facility] HospitalUrine Jgovche2938-83-20 09:03:00* Test Item Value Reference Range Interpretation Comments Urine Protein (test code = 5804-0) NEGATIVE NEGATIVE [facility] HospitalUrine Glucose (UA)2018-04-28 09:03:00* Test Item Value Reference Range Interpretation Comments Urine Glucose (UA) (test code = 2349-9) NEGATIVE NEGATIVE [facility] HospitalUrine Sckwnld8205-56-39 09:03:00* Test Item Value Reference Range Interpretation Comments Urine Ketones (test code = 07918-5) NEGATIVE NEGATIVE [facility] HospitalUrine Otoeiwdzyjht1095-74-71 09:03:00* Test Item Value Reference Range Interpretation Comments Urine Urobilinogen (test code = 40389-0) 0.2 0.2-1 [facility] HospitalUrine Wrtixgbcx6695-45-59 09:03:00* Test Item Value Reference Range Interpretation Comments Urine Bilirubin (test code = 1978-6) NEGATIVE NEGATIVE [facility] HospitalUrine Fjjla6356-03-75 09:03:00* Test Item Value Reference Range Interpretation Comments Urine Blood (test code = 01057-0) NEGATIVE NEGATIVE [facility] HospitalWhite Blood Udora5899-45-89 09:00:00* Test Item Value Reference Range Interpretation Comments White Blood Count (test code = 6690-2) 5.83 4.8-10.8 [facility] HospitalRed Blood Qclsc5126-96-34 09:00:00* Test Item Value Reference Range Interpretation Comments Red Blood Count (test code = 789-8) 4.39 3.6-5.1 [facility] HospitalHemoglobin2018-11-28 09:00:00* Test Item Value Reference Range Interpretation Comments Hemoglobin (test code = 29143-9) 13.1 12.0-16.0 [facility] HospitalHematocrit2018-11-28 09:00:00* Test Item Value Reference Range Interpretation Comments Hematocrit (test code = 4544-3) 38.6 34.2-44.1 [facility] HospitalMean Corpuscular Yelwlx8519-29-24 09:00:00* Test Item Value Reference Range Interpretation Comments Mean Corpuscular Volume (test code = 787-2) 87.9 81-99 [facility] HospitalMean Corpuscular Ghnfoqslbv1638-57-49 09:00:00* Test Item Value Reference Range Interpretation Comments Mean Corpuscular Hemoglobin (test code = 785-6) 29.8 28-32 [facility] HospitalMean Corpuscular Hemoglobin Concent 2018-04-28 09:00:00* Test Item Value Reference Range Interpretation Comments Mean Corpuscular Hemoglobin Concent (test code = 786-4) 33.9 31-35 [facility] HospitalRed Cell Distribution Eaibz2090-09-12 09:00:00* Test Item Value Reference Range Interpretation Comments Red Cell Distribution Width (test code = 53061-0) 13.8 11.7 -14.4 [facility] HospitalPlatelet Kwdua8186-44-59 09:00:00* Test Item Value Reference Range Interpretation Comments Platelet Count (test code = 777-3) 249 140-360 [facility] HospitalNeutrophils (%) (Auto)2018-04-28 09:00:00 * Test Item Value Reference Range Interpretation Comments Neutrophils (%) (Auto) (test code = 57617-2) 63.7 38.7-80.0 [facility] HospitalLymphocytes (%) (Auto)2018-04-28 09:00:00 * Test Item Value Reference Range Interpretation Comments Lymphocytes (%) (Auto) (test code = 736-9) 28.5 18.0-39.1 [facility] HospitalMonocytes (%) (Auto)2018-04-28 09:00:00* Test Item Value Reference Range Interpretation Comments Monocytes (%) (Auto) (test code = 5905-5) 4.6 4.4-11.3 [facility]Eosinophils (%) (Auto)2018-04-28 09:00:00 * Test Item Value Reference Range Interpretation Comments Eosinophils (%) (Auto) (test code = 713-8) 2.2 0.0-6.0 [facility] HospitalBasophils (%) (Auto)2018-04-28 09:00:00* Test Item Value Reference Range Interpretation Comments Basophils (%) (Auto) (test code = 706-2) 0.7 0.0-1.0 [facility] HospitalIM GRANULOCYTES %2018-04-28 09:00:00* Test Item Value Reference Range Interpretation Comments IM GRANULOCYTES % (test code = IM GRANULOCYTES %) 0.3 0.0- 1.0 [facility] HospitalNeutrophils # (Auto)2018-04-28 09:00:00* Test Item Value Reference Range Interpretation Comments Neutrophils # (Auto) (test code = 751-8) 3.7 2.1-6.9 [facility] HospitalLymphocytes # (Auto)2018-04-28 09:00:00* Test Item Value Reference Range Interpretation Comments Lymphocytes # (Auto) (test code = 40757-1) 1.7 1.0-3.2 [facility] HospitalMonocytes # (Auto)2018-04-28 09:00:00* Test Item Value Reference Range Interpretation Comments Monocytes # (Auto) (test code = 742-7) 0.3 0.2-0.8 [facility] HospitalEosinophils # (Auto)2018-04-28 09:00:00* Test Item Value Reference Range Interpretation Comments Eosinophils # (Auto) (test code = 711-2) 0.1 0.0-0.4 [facility] HospitalBasophils # (Auto)2018-04-28 09:00:00* Test Item Value Reference Range Interpretation Comments Basophils # (Auto) (test code = 704-7) 0.0 0.0-0.1 [facility] HospitalAbsolute Immature Granulocyte (auto 2018-04-28 09:00:00* Test Item Value Reference Range Interpretation Comments Absolute Immature Granulocyte (auto (alexa t code = Absolute Immature Granulocyte (auto) 0.02 0-0.1 [facility] HospitalCT ABDOMEN/PELVIS [id number] 10:58:00 [place] [address] Patient Name: ANGELA ESPINOSA MR #: [id number] : 1975 Age/Sex: 42/F Req #: [id number] [facility] Physician: Ordered by: DANIAL ÁLVAREZ MD Report #: [id number] Location: ER Room/Bed: Procedure: [id number] CT/CT ABDOMEN/PELVIS W Exam Date: 03/28/18 Exam Time : 1045 REPORT STATUS: Signed CT Abdomen And Pelvis with Intravenous Contrast INDICATION: Status post hernia repair 03/01/2018, nausea, vomiting TECHNIQUE: Thin collimation axial images obtained from the diaphragm to the level of the pubic symphysis following the uneventful administration of 100 cc of low osmolar, nonionic intravenous co ntrast. Oral contrast was administered. RADIATION DOSE: Total DLP: 869.2 mGy*cm Estimated effective dose: (DLP x 0.015 x size factor) mS v CTDIvol has been reviewed. It is below the limits set by the Radiation Protocol Committee (RPC). COMPARISON: CT abdomen/pelvis 03/04/2018. ABDOMEN FINDINGS: Lung Bases: Small posterior pleural effusions and bibasil ar atelectasis. Liver: Decreased attenuation consistent with steatosis.. N o evidence for mass. Gallbladder: Absent. No biliary ductal dilatation. Pancreas: Normal attenuation without mass or ductal dilatation. Spleen: N ormal in size. No evidence of mass. Adrenal Glands: No evidence for mass. Kidneys: Right: Normal enhancement. No soft tissue mass. Punctate ca lculus in the interpolar region. No hydronephrosis. Left: Normal enhanc ement. Lobulated contour. Lower pole low attenuating lesion is stable. No soft tissue mass. Punctate intrarenal calculus is stable. No hydronephrosis. There is a retroaortic left renal vein. Lymph Nodes: No enlarged abdominal or pe riaortic lymph nodes. Aorta: Normal in diameter. PELVIS FINDINGS: Bowel: Stomach: Collapsed but normal. Small Bowel: Normal in caliber w ith normal wall thickness. Large Bowel: Moderate burden of stool in the colo n, particularly the left colon. No mural thickening or pericolonic inflammatio n. Appendix: Normal appendix. Bladder: Well distended and normal. No ur eteral dilatation. The uterus is absent. No adnexal mass. No free flui d or fluid collection. Bones: Bone islands in L5 are stable. No destructive lesions. Soft tissues: Mesh in the anterior abdomen wall at the umbilicus is stable. There is no evidence of surrounding fluid collection. No hernia rec urrence. IMPRESSION: 1. Stable postoperative appearance of the abdomen wall. 2. No evidence of abscess. 3. Moderate burden of stool in the large bowel without obstruction. 4. Steatosis. 5. Multiple intrarenal calculi. No obstructive uropathy. Signed by: Dr. Diallo Garcia MD on 03/28/2018 1 1:06 AM Dictated By: DIALLO GARCIA MD 110 Transcribed By: LULU on 03/28/181105 COPY TO: DANIAL ÁLVAREZ MD Amylase Pchts8930-06-00 09:26:00* Test Item Value Reference Range Interpretation Comments Amylase Level (test code = 1798-8) 101 25-125 [facility] HospitalAmylase Yjdbt2005-13-61 09:26:00* Test Item Value Reference Range Interpretation Comments Amylase Level (test code = 1798-8) 101 25-125 [facility] Chorionic Gonadotropin, Qual 2018-03-28 09:15:00* Test Item Value Reference Range Interpretation Comments Human Chorionic Gonadotropin, Qual (test code = 2118-8) NEGATIVE NEGATIVE [facility] Chorionic Gonadotropin, Qual 2018-03-28 09:15:00* Test Item Value Reference Range Interpretation Comments Human Chorionic Gonadotropin, Qual (test code = 2118-8) NEGATIVE NEGATIVE [facility] Chorionic Gonadotropin, Qual 2018-03-28 09:15:00* Test Item Value Reference Range Interpretation Comments Human Chorionic Gonadotropin, Qual (test code = 2118-8) NEGATIVE NEGATIVE [facility] Chorionic Gonadotropin, Qual 2018-03-28 09:15:00* Test Item Value Reference Range Interpretation Comments Human Chorionic Gonadotropin, Qual (test code = 8-8) NEGATIVE NEGATIVE [facility] Chorionic Gonadotropin, Qual 2018-03-28 09:15:00* Test Item Value Reference Range Interpretation Comments Human Chorionic Gonadotropin, Qual (test code = 8-8) NEGATIVE NEGATIVE [facility] Chorionic Gonadotropin, Qual 2018-03-28 09:15:00* Test Item Value Reference Range Interpretation Comments Human Chorionic Gonadotropin, Qual (test code = 8-8) NEGATIVE NEGATIVE [facility] Chorionic Gonadotropin, Qual 2018-03-28 09:15:00* Test Item Value Reference Range Interpretation Comments Human Chorionic Gonadotropin, Qual (test code = 8-8) NEGATIVE NEGATIVE [facility] HospitalCT CHEST [id number] 11:17:00 [place] [address] Patient Name: ANGELA ESPINOSA MR #: [id number] : 1975 Age/Sex: 42/F Req #: [id number] Adm Physician: Ordered by: SEEMA TINAJERO MD Report #: [id number] Location: [facility]/Bed: Procedure: [id number] CT/CT CHEST W Exam Date : 03/04/18 Exam Time: 1050 REPORT STATUS: Inés d EXAMINATION: CT of the chest, abdomen and pelvis with contrast. TECH NIQUE: Spiral CT images of the chest, abdomen and pelvis were performed from the lung apices to the lesser trochanters after the intravenous administration of 100 cc of Isovue-370. Thoracic imaging was performed per pulmonary embolus protocol. COMPARISON: CT abdomen and pelvis 01/21/2018 CLINICAL HISTOR Y:Recent hernia repair, shortness of breath, abdominal pain DISCUSSION : CHEST: Vasculature: The main pulmonary artery, right and left pulmon man arteries, and their visualized lobar and segmental branches are patent wit hout filling defect. The pulmonary outflow tract is of normal caliber. There i s no ectasia or aneurysmal dilatation of the thoracic aorta. Great vessel orig ins are normal in caliber and configuration. LUNGS AND AIRWAYS: Groundgl ass and reticular opacities in the dependent portions of the lower lobes. Scat tered foci of groundglass opacity and hyperlucency in the upper lobes may rela te to air trapping. No consolidation, mass lesion, or gross fibrotic change. PLEURA: No pleural effusion or pneumothorax. HEART AND MEDIASTINUM: Vi sualized portions of the thyroid gland appear normal. No axillary, hilar, or m ediastinal lymphadenopathy. No pericardial effusion. No right ventricular dila tation or septal bowing. LYMPH NODES: As above. BONES AND SOFT TISSUES : No osseous destructive lesions or focal soft tissue abnormalities. ABDOMEN/PELVIS: HEPATOBILIARY:No focal hepatic lesion or intrahepatic bilia ry ductal dilatation. The gallbladder has been removed. SPLEEN: Heterogen eity of splenic attenuation reflects arterial phase of scan. No splenomegaly. PANCREAS: No focal mass or ductal dilatation. ADRENALS: No adrenal nod ules. KIDNEYS/URETERS: Lobulated contour of the left kidney. Exophytic subc entimeter hypoattenuating lesion too small to further characterize though like ly to represent a small cyst. No gross renal mass lesion or hydronephrosis. PELVIC ORGANS/BLADDER: The urinary bladder is unremarkable. The uterus is not identified and has presumably been removed. No adnexal mass. PERITONEUM/ RETROPERITONEUM: No ascites. Tiny foci of pneumoperitoneum related to interval mesh repair of umbilical hernia. LYMPH NODES: No pelvic sidewall, retroper itoneal, or mesenteric lymphadenopathy. VESSELS: The abdominal aorta, raj or branch vessels, and iliac arterial systems are well-visualized and patent. Retroaortic left renal vein. Portal vein, splenic vein, and central superior m esenteric vein are patent. GI TRACT: The large bowel shows no evidence of d istention or wall thickening. Concentric narrowing of the mid rectum is presum ably related to peristalsis markedly redundant sigmoid colon. The appendix is not definitively identified. No small bowel dilatation to suggest obstruction. BONES AND SOFT TISSUES: Postsurgical changes related to mesh repair of u mbilical hernia with scattered foci of subcutaneous and intraperitoneal gas wi th inflammatory changes of the subcutaneous fat. No loculated fluid collection . No additional focal soft tissue abnormalities. No osseous destructive lesion s. IMPRESSION: No CT evidence of pulmonary embolus to the level of th e segmental branch pulmonary arteries. Subsegmental atelectasis in the de pendent portions of the lungs. Postsurgical changes related to interval me sh repair of small umbilical hernia, with expected small foci of subcutaneous and intraperitoneal air and inflammatory change of the subcutaneous fat. No o rganized fluid collection or inflammatory change of the underlying bowel. Signed by: Dr. Cam Andres M.D. on 03/04/2018 11:31 AM Dictated By: MILLI ANDRES MD 1131 Tra nscribed By: LULU on 03/04/18 1131 COPY TO: SEEMA TINAJERO MD CT ABDOMEN/PELVIS [id number] 11:17:00 [place] [address] Patient Name: ANGELA ESPINOSA MR #: [id number] : 1975 Age/Sex: 42/F Req #: [id number] Adm Physician: Ordered by: SEEMA TINAJERO MD Report #: [id number] Location: ER Room/Bed: Procedure: [id number] CT/CT ABDOMEN/PELVIS W Exam Date: 03/04/18 Exam Time: 1050 REPORT STAT US: Signed EXAMINATION: CT of the chest, abdomen and pelvis with contrast. TECHNIQUE: Spiral CT images of the chest, abdomen and pelvis were performed from the lung apices to the lesser trochanters after the intravenous admin istration of 100 cc of Isovue-370. Thoracic imaging was performed per pulmonar y embolus protocol. COMPARISON: CT abdomen and pelvis 01/21/2018 CLINIC AL HISTORY:Recent hernia repair, shortness of breath, abdominal pain D ISCUSSION: CHEST: Vasculature: The main pulmonary artery, right and le ft pulmonary arteries, and their visualized lobar and segmental branches are p atent without filling defect. The pulmonary outflow tract is of normal caliber . There is no ectasia or aneurysmal dilatation of the thoracic aorta. Great ve ssel origins are normal in caliber and configuration. LUNGS AND AIRWAYS: Groundglass and reticular opacities in the dependent portions of the lower lo bes. Scattered foci of groundglass opacity and hyperlucency in the upper lobes may relate to air trapping. No consolidation, mass lesion, or gross fibrotic change. PLEURA: No pleural effusion or pneumothorax. HEART AND MEDIAS TINUM: Visualized portions of the thyroid gland appear normal. No axillary, hi lar, or mediastinal lymphadenopathy. No pericardial effusion. No right ventric ular dilatation or septal bowing. LYMPH NODES: As above. BONES AND SOF T TISSUES: No osseous destructive lesions or focal soft tissue abnormalities. ABDOMEN/PELVIS: HEPATOBILIARY:No focal hepatic lesion or intrahepa tic biliary ductal dilatation. The gallbladder has been removed. SPLEEN: Heterogeneity of splenic attenuation reflects arterial phase of scan. No splen omegaly. PANCREAS: No focal mass or ductal dilatation. ADRENALS: No ad renal nodules. KIDNEYS/URETERS: Lobulated contour of the left kidney. Exoph ytic subcentimeter hypoattenuating lesion too small to further characterize th ough likely to represent a small cyst. No gross renal mass lesion or hydroneph rosis. PELVIC ORGANS/BLADDER: The urinary bladder is unremarkable. The uter us is not identified and has presumably been removed. No adnexal mass. PE RITONEUM/RETROPERITONEUM: No ascites. Tiny foci of pneumoperitoneum related to interval mesh repair of umbilical hernia. LYMPH NODES: No pelvic sidewall, retroperitoneal, or mesenteric lymphadenopathy. VESSELS: The abdominal a [place], major branch vessels, and iliac arterial systems are well-visualized and patent. Retroaortic left renal vein. Portal vein, splenic vein, and central s uperior mesenteric vein are patent. GI TRACT: The large bowel shows no evid ence of distention or wall thickening. Concentric narrowing of the mid rectum is presumably related to peristalsis markedly redundant sigmoid colon. The johnnie endix is not definitively identified. No small bowel dilatation to suggest obs truction. BONES AND SOFT TISSUES: Postsurgical changes related to mesh repa ir of umbilical hernia with scattered foci of subcutaneous and intraperitoneal gas with inflammatory changes of the subcutaneous fat. No loculated fluid c ollection. No additional focal soft tissue abnormalities. No osseous destructi ve lesions. IMPRESSION: No CT evidence of pulmonary embolus to the le skyler of the segmental branch pulmonary arteries. Subsegmental atelectasis in the dependent portions of the lungs. Postsurgical changes related to in terval mesh repair of small umbilical hernia, with expected small foci of subc utaneous and intraperitoneal air and inflammatory change of the subcutaneous fat. No organized fluid collection or inflammatory change of the underlying pamella wel. Signed by: Dr. Cam Andres M.D. on 03/04/2018 11:31 AM Dictat ed By: CAM ANDRES MD 1131 Transcribed By: LULU on 03/04/18 1131 COPY TO: SEEMA TINAJERO MD Sodium Dcfze7965-99-67 09:49:00* Test Item Value Reference Range Interpretation Comments Sodium Level (test code = 2951-2) 138 136-145 [facility] HospitalPotassium Uadua6996-91-12 09:49:00* Test Item Value Reference Range Interpretation Comments Potassium Level (test code = 2823-3) 4.3 3.5-5.1 [facility] HospitalChloride Nhvac9604-51-11 09:49:00* Test Item Value Reference Range Interpretation Comments Chloride Level (test code = 2075-0) 105 98-107 [facility] HospitalCarbon Dioxide Dxpyl3772-54-83 09:49:00* Test Item Value Reference Range Interpretation Comments Carbon Dioxide Level (test code = 8-9) 22 22-29 [facility] HospitalAnion Nvx5073-87-23 09:49:00* Test Item Value Reference Range Interpretation Comments Anion Gap (test code = 21800-8) 15.3 8-16 [facility] HospitalBlood Urea Xmibqubz8682-60-44 09:49:00* Test Item Value Reference Range Interpretation Comments Blood Urea Nitrogen (test code = 3094-0) 16 7-26 [facility] HospitalCreatinine2018-10-04 09:49:00* Test Item Value Reference Range Interpretation Comments Creatinine (test code = 2160-0) 0.99 0.57-1.11 [facility] HospitalBUN/Creatinine Zrfas0982-77-68 09:49:00* Test Item Value Reference Range Interpretation Comments BUN/Creatinine Ratio (test code = 3097-3) 16 6-25 [facility] HospitalEstimat Glomerular Filtration Rate 2018-03-04 09:49:00* Test Item Value Reference Range Interpretation Comments Estimat Glomerular Filtration Rate (test code = 259629113) 60- >60 Ranges were taken from the National Kidney Disease Education Program and the [facility] [employer] literature.Reference ranges:60 or greater: Zrxkhs51-57 ( for 3 consecutive months): Chronic kidney disease 15 or less: Kidney failureMemorial Hermann Cypress HospitalGlucose Vrbyz9793-62-84 09:49:00* Test Item Value Reference Range Interpretation Comments Glucose Level (test code = QRT1963) 122 74-118 H [facility] HospitalCalcium Mlbma4275-62-19 09:49:00* Test Item Value Reference Range Interpretation Comments Calcium Level (test code = 60530-1) 9.3 8.4-10.2 [facility] HospitalTotal Rnupjdxep3993-10-97 09:49:00* Test Item Value Reference Range Interpretation Comments Total Bilirubin (test code = 1975-2) 0.2 0.2-1.2 [facility] HospitalAspartate Amino Transf (AST/SGOT) 2018-03-04 09:49:00* Test Item Value Reference Range Interpretation Comments Aspartate Amino Transf (AST/SGOT) (test code = Aspartate Amino Transf (AST/SGOT)) 20 5-34 [facility] HospitalAlanine Aminotransferase (ALT/SGPT) 2018-03-04 09:49:00* Test Item Value Reference Range Interpretation Comments Alanine Aminotransferase (ALT/SGPT) (test code = 1742-6) 24 0-55 [facility] HospitalTotal Fglrdci7655-06-39 09:49:00* Test Item Value Reference Range Interpretation Comments Total Protein (test code = 2885-2) 6.7 6.5-8.1 [facility] HospitalAlbumin2018-10-04 09:49:00* Test Item Value Reference Range Interpretation Comments Albumin (test code = 1751-7) 3.5 3.5-5.0 [facility] HospitalGlobulin2018-10-04 09:49:00* Test Item Value Reference Range Interpretation Comments Globulin (test code = 05540-3) 3.2 2.3-3.5 [facility] HospitalAlbumin/Globulin Npaxu3906-58-85 09:49:00 * Test Item Value Reference Range Interpretation Comments Albumin/Globulin Ratio (test code = 1759-0) 1.1 0.8-2.0 [facility] HospitalAlkaline Erncvilsvcy6353-25-85 09:49:00* Test Item Value Reference Range Interpretation Comments Alkaline Phosphatase (test code = 6768-6) 107 40-150 [facility] HospitalLipase2018-10-04 09:49:00* Test Item Value Reference Range Interpretation Comments Lipase (test code = 3040-3) 32 8-78 [facility] HospitalUrine IKZ9394-02-39 09:36:00* Test Item Value Reference Range Interpretation Comments Urine WBC (test code = 5821-4) NONE 0-5 [facility] HospitalUrine URO2725-69-98 09:36:00* Test Item Value Reference Range Interpretation Comments Urine RBC (test code = 46421-4) 11-20 0-5 H [facility] HospitalUrine Vvddcygc4611-05-93 09:36:00* Test Item Value Reference Range Interpretation Comments Urine Bacteria (test code = 59230-5) FEW NONE [facility] HospitalUrine Epithelial Jphpy3845-92-05 09:36:00 * Test Item Value Reference Range Interpretation Comments Urine Epithelial Cells (test code = 81130-3) FEW NONE [facility] HospitalUrine Qpbsj0183-18-95 09:27:00* Test Item Value Reference Range Interpretation Comments Urine Color (test code = 5778-6) YELLOW YELLOW [facility] HospitalUrine Udmvrus7290-31-61 09:27:00* Test Item Value Reference Range Interpretation Comments Urine Clarity (test code = 82614-5) SL CLOUDY CLEAR [facility] Specific Qkvclum6776-59-50 09:27:00 * Test Item Value Reference Range Interpretation Comments Urine Specific [place] (test code = 5811-5) 1.010 1.010-1.02 5 [facility] HospitalUrine fO1500-85-18 09:27:00* Test Item Value Reference Range Interpretation Comments Urine pH (test code = 72758-2) 6 5-7 [facility] Leukocyte Mfvpibec9865-00-44 09:27:00* Test Item Value Reference Range Interpretation Comments Urine Leukocyte Esterase (test code = 5799-2) NEGATIVE NEGATIVE [facility] Jvvdrgc2266-49-20 09:27:00* Test Item Value Reference Range Interpretation Comments Urine Nitrite (test code = 52900-9) NEGATIVE NEGATIVE [facility] Ccpggee1085-75-99 09:27:00* Test Item Value Reference Range Interpretation Comments Urine Protein (test code = 5804-0) NEGATIVE NEGATIVE [facility] Glucose (UA)2018-03-04 09:27:00* Test Item Value Reference Range Interpretation Comments Urine Glucose (UA) (test code = 2349-9) NEGATIVE NEGATIVE [facility] HospitalUrine Bxbwnaw6198-32-41 09:27:00* Test Item Value Reference Range Interpretation Comments Urine Ketones (test code = 27837-8) NEGATIVE NEGATIVE [facility] Djswgtopvhpf0533-53-62 09:27:00* Test Item Value Reference Range Interpretation Comments Urine Urobilinogen (test code = 95283-5) 0.2 0.2-1 [facility] HospitalUrine Pobmrtltx2899-92-19 09:27:00* Test Item Value Reference Range Interpretation Comments Urine Bilirubin (test code = 1978-6) NEGATIVE NEGATIVE [facility] HospitalUrine Onozb0905-55-85 09:27:00* Test Item Value Reference Range Interpretation Comments Urine Blood (test code = 70723-2) 3+ NEGATIVE H [facility] HospitalWhite Blood Eospo1070-06-22 09:23:00* Test Item Value Reference Range Interpretation Comments White Blood Count (test code = 6690-2) 6.21 4.8-10.8 [facility] HospitalRed Blood Cfsia1913-14-62 09:23:00* Test Item Value Reference Range Interpretation Comments Red Blood Count (test code = 789-8) 4.20 3.6-5.1 [facility] HospitalHemoglobin2018-10-04 09:23:00* Test Item Value Reference Range Interpretation Comments Hemoglobin (test code = 18682-2) 12.5 12.0-16.0 [facility] HospitalHematocrit2018-10-04 09:23:00* Test Item Value Reference Range Interpretation Comments Hematocrit (test code = 4544-3) 36.8 34.2-44.1 [facility] HospitalMean Corpuscular Bijxrw2299-74-15 09:23:00* Test Item Value Reference Range Interpretation Comments Mean Corpuscular Volume (test code = 787-2) 87.6 81-99 [facility] HospitalMean Corpuscular Wqqipflpxl3966-42-80 09:23:00* Test Item Value Reference Range Interpretation Comments Mean Corpuscular Hemoglobin (test code = 785-6) 29.8 28-32 [facility] HospitalMean Corpuscular Hemoglobin Concent 2018-03-04 09:23:00* Test Item Value Reference Range Interpretation Comments Mean Corpuscular Hemoglobin Concent (test code = 786-4) 34.0 31-35 [facility] HospitalRed Cell Distribution Uojkv9482-96-61 09:23:00* Test Item Value Reference Range Interpretation Comments Red Cell Distribution Width (test code = 45174-9) 13.8 11.7 -14.4 [facility] HospitalPlatelet Zbdlp4880-45-08 09:23:00* Test Item Value Reference Range Interpretation Comments Platelet Count (test code = 777-3) 264 140-360 [facility] HospitalNeutrophils (%) (Auto)2018-03-04 09:23:00 * Test Item Value Reference Range Interpretation Comments Neutrophils (%) (Auto) (test code = 35301-8) 70.5 38.7-80.0 [facility] HospitalLymphocytes (%) (Auto)2018-03-04 09:23:00 * Test Item Value Reference Range Interpretation Comments Lymphocytes (%) (Auto) (test code = 736-9) 20.3 18.0-39.1 [facility] HospitalMonocytes (%) (Auto)2018-03-04 09:23:00* Test Item Value Reference Range Interpretation Comments Monocytes (%) (Auto) (test code = 5905-5) 6.0 4.4-11.3 [facility] HospitalEosinophils (%) (Auto)2018-03-04 09:23:00 * Test Item Value Reference Range Interpretation Comments Eosinophils (%) (Auto) (test code = 713-8) 2.3 0.0-6.0 [facility] HospitalBasophils (%) (Auto)2018-03-04 09:23:00* Test Item Value Reference Range Interpretation Comments Basophils (%) (Auto) (test code = 706-2) 0.6 0.0-1.0 [facility] HospitalIM GRANULOCYTES %2018-03-04 09:23:00* Test Item Value Reference Range Interpretation Comments IM GRANULOCYTES % (test code = IM GRANULOCYTES %) 0.3 0.0- 1.0 [facility] [facility]Neutrophils # (Auto)2018-03-04 09:23:00* Test Item Value Reference Range Interpretation Comments Neutrophils # (Auto) (test code = 751-8) 4.4 2.1-6.9 [facility] HospitalLymphocytes # (Auto)2018-03-04 09:23:00* Test Item Value Reference Range Interpretation Comments Lymphocytes # (Auto) (test code = 41872-4) 1.3 1.0-3.2 [facility] HospitalMonocytes # (Auto)2018-03-04 09:23:00* Test Item Value Reference Range Interpretation Comments Monocytes # (Auto) (test code = 742-7) 0.4 0.2-0.8 [facility] HospitalEosinophils # (Auto)2018-03-04 09:23:00* Test Item Value Reference Range Interpretation Comments Eosinophils # (Auto) (test code = 711-2) 0.1 0.0-0.4 [facility] HospitalBasophils # (Auto)2018-03-04 09:23:00* Test Item Value Reference Range Interpretation Comments Basophils # (Auto) (test code = 704-7) 0.0 0.0-0.1 [facility] HospitalAbsolute Immature Granulocyte (auto 2018-03-04 09:23:00* Test Item Value Reference Range Interpretation Comments Absolute Immature Granulocyte (auto (alexa t code = Absolute Immature Granulocyte (auto) 0.02 0-0.1 [facility] Opeeday2347-53-17 10:44:00* Test Item Value Reference Range Interpretation Comments Bedside Glucose (test code = 96788-1) 106 70-120 Meter ID: [id number] L. [facility] Glucose 2018-02-09 10:44:00* Test Item Value Reference Range Interpretation Comments Bedside Glucose (test code = 69547-8) 106 70-120 Meter ID: [id number] L. [facility] Glucose 2018-02-09 10:44:00* Test Item Value Reference Range Interpretation Comments Bedside Glucose (test code = 94005-0) 106 70-120 Meter ID: [id number] L. [facility] Glucose 2018-02-09 10:44:00* Test Item Value Reference Range Interpretation Comments Bedside Glucose (test code = 84539-0) 106 70-120 Meter ID: [id number] L. [facility] Glucose 2018-02-09 10:44:00* Test Item Value Reference Range Interpretation Comments Bedside Glucose (test code = 78339-1) 106 70-120 Meter ID: [id number] L. [facility] Glucose 2018-02-09 10:44:00* Test Item Value Reference Range Interpretation Comments Bedside Glucose (test code = 59842-6) 106 70-120 Meter ID: [id number] L. [facility] Glucose 2018-02-09 10:44:00* Test Item Value Reference Range Interpretation Comments Bedside Glucose (test code = 07359-2) 106 70-120 Meter ID: [id number] L. [facility] Glucose 2018-02-09 10:44:00* Test Item Value Reference Range Interpretation Comments Bedside Glucose (test code = 94495-3) 106 70-120 Meter ID: [id number] L. [facility] Glucose 2018-02-09 10:44:00* Test Item Value Reference Range Interpretation Comments Bedside Glucose (test code = 64279-5) 106 70-120 Meter ID: [id number] Hermann [facility] HospitalUrine WLP0125-54-70 10:06:00* Test Item Value Reference Range Interpretation Comments Urine WBC (test code = 5821-4) NONE 0-5 [facility] HospitalU[facility] UPO8122-95-95 10:06:00* Test Item Value Reference Range Interpretation Comments Urine RBC (test code = 57269-6) NONE 0-5 [facility] HospitalU[facility] Dbmjcgis3632-47-16 10:06:00* Test Item Value Reference Range Interpretation Comments Urine Bacteria (test code = 29975-6) FEW NONE [facility] HospitalUrine Epithelial Ctnqu8218-95-78 10:06:00 * Test Item Value Reference Range Interpretation Comments Urine Epithelial Cells (test code = 37438-3) MODERATE NONE [facility] HospitalU[facility] Uhls7315-43-28 09:31:00* Test Item Value Reference Range Interpretation Comments Urine Test (test code = 2106-3) NEGATIVE NEGATIVE [facility] HospitalU[facility] Rsjl1957-96-57 09:31:00* Test Item Value Reference Range Interpretation Comments Urine Test (test code = 2106-3) NEGATIVE NEGATIVE [facility] Hospital[facility] Xnvh0004-81-78 09:31:00* Test Item Value Reference Range Interpretation Comments Urine Test (test code = 2106-3) NEGATIVE NEGATIVE [facility] HospitalU[facility] Uaauq0145-87-50 09:30:00* Test Item Value Reference Range Interpretation Comments Urine Color (test code = 5778-6) GEO YELLOW H [facility] HospitalU[facility] Jaogdvq0997-04-33 09:30:00* Test Item Value Reference Range Interpretation Comments Urine Clarity (test code = 60761-6) SL CLOUDY CLEAR [facility] HospitalUrine Specific Fneyeoi6896-58-89 09:30:00 * Test Item Value Reference Range Interpretation Comments Urine Specific [place] (test code = 5811-5) 1.030 1.010-1.02 5 H [facility] HospitalUrine uQ9240-08-70 09:30:00* Test Item Value Reference Range Interpretation Comments Urine pH (test code = 33644-5) 6 5-7 [facility] Leukocyte Pwylelnq1603-68-01 09:30:00* Test Item Value Reference Range Interpretation Comments Urine Leukocyte Esterase (test code = 5799-2) NEGATIVE NEGATIVE [facility] HospitalU[facility] Upxnyrp7973-23-92 09:30:00* Test Item Value Reference Range Interpretation Comments Urine Nitrite (test code = 20231-0) NEGATIVE NEGATIVE [facility] HospitalU[facility] Pckkmdy6906-77-74 09:30:00* Test Item Value Reference Range Interpretation Comments Urine Protein (test code = 5804-0) TRACE NEGATIVE H [facility] HospitalUrine Glucose (UA)2018-02-09 09:30:00* Test Item Value Reference Range Interpretation Comments Urine Glucose (UA) (test code = 2349-9) NEGATIVE NEGATIVE [facility] HospitalU[facility] Aykqfex9524-73-22 09:30:00* Test Item Value Reference Range Interpretation Comments Urine Ketones (test code = 07949-8) NEGATIVE NEGATIVE [facility] HospitalU[facility] Hjqqeszawkhz5557-41-28 09:30:00* Test Item Value Reference Range Interpretation Comments Urine Urobilinogen (test code = 69842-5) 1 0.2-1 [facility] HospitalU[facility] Ofzddqqkf0129-82-62 09:30:00* Test Item Value Reference Range Interpretation Comments Urine Bilirubin (test code = 1978-6) 1+ NEGATIVE H [facility] HospitalU[facility] Dyzww1364-37-97 09:30:00* Test Item Value Reference Range Interpretation Comments Urine Blood (test code = 33981-1) NEGATIVE NEGATIVE [facility] HospitalCT ABDOMEN/PELVIS N1750-79-66 10:06:00 [facility] [address] [place] [address] Patient Name: ANGELA ESPINOSA MR #: [id number] OB: 1975 Age/Sex: 42/F Req #: [id number] Adm Physic domo: Ordered by: SEEMA TINAJERO MD Report #: [id number] Location: ER om/Bed: Procedure: [id number] CT/CT ABDOMEN/PELVIS W Exam Date: 01/21/18 Exam Time: 919 REPORT STAT US: Signed PROCEDURE: CT ABDOMEN AND PELVIS WITH CONTRAST TECHNIQUE: The abdomen and pelvis were scanned utilizing a multidetector helical scanner from the diaphragm to the lesser trochanter after the IV administration of 100 cc of Isovue 370 and the oral administration of water. Coronal and sagit francisco multiplanar reformations were obtained. Dose reduction parameters were ut ilized. DLP: 868.77 mGy-cm COMPARISON: [facility], CT, CT ABDOMEN/PELVIS W, 12/04/2017, 11:21. INDICATIONS: EPIGASTRIC PAIN, FEET NUMBNESS FINDINGS: LOWER THORAX: Minimal bibasilar atelectasis. HEPATOBILIARY: No focal hepatic lesions. No biliary ductal dilatation. The gallbladder is absent. SPLEEN: No splenomegaly. PANCREAS: No focal masses or ductal dilatation. ADRENALS: No adrenal nodules. KIDNEYS/URETERS: No hydronephrosis or solid mass lesions. Small exophytic left renal cyst measur es less than 1 cm. Unchanged small left interpolar renal stone. There is a ti ny right lower pole renal stone PELVIC ORGANS/BLADDER: Unremarkable appearing bladder. PERITONEUM / RETROPERITONEUM: No free air or fluid. LYMPH NODES : No lymphadenopathy. VESSELS: There is a retroaortic left renal vein. G I TRACT: No distention or wall thickening. BONES AND SOFT TISSUES: Bones are u nremarkable. Small umbilical hernia measures 2.5 cm and is larger. Only abdom inal fat present within the hernia. IMPRESSION: 1. Small bilatera l renal stones. 2. Umbilical hernia appears more prominent. Lisa sims D.O. Dictated by: Lisa Sales D.O. on 01/21/2018 at 10:06 Electronically approved by: Lisa Sales D.O. on 01/21/2018 at 10:06 Dictated By: LISA SALES DO 1006 Transcribed By: FAVIAN on 01/21/18 1006 COPY TO: SEEMA DELAROSA MD CT LUMBAR SPINE L0976-04-77 09:59:00 [place] [address] Patient Name: ANGELA ESPINOSA MR #: [id number] : 1975 Age/Sex: 42/F Req #: [id number] Adm Physician: Ordered by: SEEMA TINAJERO MD Report #: [id number] Location: [facility]/Bed: Procedure: [id number] CT/CT LUMBAR SPINE W Ex am Date: 01/21/18 Exam Time: 919 REPORT STATUS : Signed EXAMINATION: CT of the lumbar spine HISTORY: Abdomen and back pain, feet numbness for the last day COMPARISON: Abdomen CT on 12/04/2017 TECH NIQUE: Multidetector helical axial images were reconstructed from enhanced abd omen CT performed on the same day from L1 to S1. The images were reconstructe d using bone and soft tissue algorithms and were viewed in axial, sagittal, an d coronal planes. Dose modulation, iterative reconstruction, and/or weight based adjustment of the mA/kV was utilized to reduce the radiation dose to as low as reasonably achievable. FINDINGS: Alignment: Normal align ment and lordosis. Vertebral bodies: Normal height and density. Paraspin al soft tissues: Scars in the left kidney and hypodensities in both kidneys, p lease see dictation of abdomen CT performed on the same day for further detail . Intervertebral disks: L1-L2: Normal. L2-L3: Normal. L3-L4: Normal. L4-L5: Normal. L5-S1: Decreased disc height, symmetric disc bulge, facet arthrosis. Moderate foraminal stenoses. Sacroiliac join ts: Degenerative changes with vacuum phenomena, subchondral sclerosis and tran inal osteophytes. IMPRESSION: 1. No acute lumbar spine abnormalitie s. 2. 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 3. 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 Note is made that acute po sttraumatic thecal sac/cauda equina, vascular or ligamentous injury in the johnnie ropriate clinical setting cannot be assessed with CT. Signed by: Dr. Suzanna Quesada M.D. on 01/21/2018 10:12 AM Dictated By: CORBY QUESADA MD Elect ronically Signed By: CORBY QUESADA MD on 01/21/18 1012 Transcribed By: LULU on 01/21/18 1012 COPY TO: SEEMA TINAJERO MD Creatine Kinase MB 2018-01-21 08:56:00* Test Item Value Reference Range Interpretation Comments Creatine Kinase MB (test code = 24106-3) 0.40 0-5.0 [place] 67838018-08-23 08:56:00* Test Item Value Reference Range Interpretation Comments Troponin I (test code = MTI3156) -0.001 0-0.300 [facility] HospitalCreatine Kinase WB2326-59-64 08:56:00* Test Item Value Reference Range Interpretation Comments Creatine Kinase MB (test code = 43488-6) 0.40 0-5.0 [place] 67838018-08-23 08:56:00* Test Item Value Reference Range Interpretation Comments Troponin I (test code = VQQ6157) -0.001 0-0.300 [facility] HospitalCreatine Kinase GI6989-13-17 08:56:00* Test Item Value Reference Range Interpretation Comments Creatine Kinase MB (test code = 10748-4) 0.40 0-5.0 [place] 67838018-08-23 08:56:00* Test Item Value Reference Range Interpretation Comments Troponin I (test code = IBB1329) -0.001 0-0.300 [facility] HospitalCreatine Kinase GD3625-09-55 08:56:00* Test Item Value Reference Range Interpretation Comments Creatine Kinase MB (test code = 46218-5) 0.40 0-5.0 [place] 67838018-08-23 08:56:00* Test Item Value Reference Range Interpretation Comments Troponin I (test code = HEE2635) < 0.001 0-0.300 [facility] HospitalCreatine Kinase OT8687-64-47 08:56:00* Test Item Value Reference Range Interpretation Comments Creatine Kinase MB (test code = 77218-3) 0.40 0-5.0 [place] 588928-08-23 08:56:00* Test Item Value Reference Range Interpretation Comments Troponin I (test code = AJA6105) < 0.001 0-0.300 [facility] HospitalCreatine Kinase WG1689-59-96 08:56:00* Test Item Value Reference Range Interpretation Comments Creatine Kinase MB (test code = 72551-5) 0.40 0-5.0 [place] 67838018-08-23 08:56:00* Test Item Value Reference Range Interpretation Comments Troponin I (test code = SWG6704) < 0.001 0-0.300 [facility] HospitalCreat[facility] Kinase ZO2293-99-09 08:56:00* Test Item Value Reference Range Interpretation Comments Creatine Kinase MB (test code = 68217-2) 0.40 0-5.0 [place] 67838018-08-23 08:56:00* Test Item Value Reference Range Interpretation Comments Troponin I (test code = VHO4699) < 0.001 0-0.300 [facility] HospitalCreatine Kinase GJ9618-12-88 08:56:00* Test Item Value Reference Range Interpretation Comments Creatine Kinase MB (test code = 03817-4) 0.40 0-5.0 [place] 67838018-08-23 08:56:00* Test Item Value Reference Range Interpretation Comments Troponin I (test code = BOE3058) < 0.001 0-0.300 [facility] HospitalCreatine Kinase NY5156-76-94 08:56:00* Test Item Value Reference Range Interpretation Comments Creatine Kinase MB (test code = 65454-8) 0.40 0-5.0 [place] 67838018-08-23 08:56:00* Test Item Value Reference Range Interpretation Comments Troponin I (test code = MYF8448) < 0.001 0-0.300 [facility] HospitalCreat[facility] Kinase DJ1028-40-67 08:56:00* Test Item Value Reference Range Interpretation Comments Creatine Kinase MB (test code = 66331-9) 0.40 0-5.0 [place] 67838018-08-23 08:56:00* Test Item Value Reference Range Interpretation Comments Troponin I (test code = LXO1362) < 0.001 0-0.300 [facility] HospitalUrine Opiates Smtaij7322-06-03 08:52:00* Test Item Value Reference Range Interpretation Comments Urine Opiates Screen (test code = 38615-6) NEGATIVE NEGATIVE [facility] HospitalUrine Barbiturates Iuazbe2570-87-80 08:52:00* Test Item Value Reference Range Interpretation Comments Urine Barbiturates Screen (test code = 697643851) NEGATIVE NEGA TIVE [facility] HospitalU[facility] Phencyclidine Pwipvt8757-21-84 08:52:00* Test Item Value Reference Range Interpretation Comments Urine Phencyclidine Screen (test code = 24488-4) NEGATIVE NEGAT HENRY [facility] HospitalUrine Amphetamines Mkrhkp9153-66-77 08:52:00* Test Item Value Reference Range Interpretation Comments Urine Amphetamines Screen (test code = 96953-0) NEGATIVE NEGATI VE [facility] Methamphetamines Llwfah2893-51-03 08:52:00* Test Item Value Reference Range Interpretation Comments Urine Methamphetamines Screen (test code = Urine Metha mphetamines Screen) NEGATIVE NEGATIVE [facility] HospitalU[facility] Benzodiazepines Yszzlr3123-48-97 08:52:00* Test Item Value Reference Range Interpretation Comments Urine Benzodiazepines Screen (test code = 54966-5) POSITIVE NEG ATIVE H This test provides only a screen. Positive results should be repeated by a confi rmatory test.[facility] HospitalU[facility] Cocaine Screen 2018-01-21 08:52:00* Test Item Value Reference Range Interpretation Comments Urine Cocaine Screen (test code = 3398-5) NEGATIVE NEGATIVE [facility] HospitalU[facility] Cannabinoids Ieflbs8184-94-84 08:52:00* Test Item Value Reference Range Interpretation Comments Urine Cannabinoids Screen (test code = 50992-0) POSITIVE NEGATI VE H This test provides only a screen. Positive results should be repeated by a confi rmatory test.[facility] HospitalUrine Opiates Screen 2018-01-21 08:52:00* Test Item Value Reference Range Interpretation Comments Urine Opiates Screen (test code = 79941-1) NEGATIVE NEGATIVE [facility] HospitalUrine Barbiturates Oebdcf0392-61-03 08:52:00* Test Item Value Reference Range Interpretation Comments Urine Barbiturates Screen (test code = 997185670) NEGATIVE NEGA TIVE [facility] HospitalU[facility] Phencyclidine Cbnuen7706-66-50 08:52:00* Test Item Value Reference Range Interpretation Comments Urine Phencyclidine Screen (test code = 42857-5) NEGATIVE NEGAT HENRY [facility] HospitalUrine Amphetamines Iktzag4280-23-24 08:52:00* Test Item Value Reference Range Interpretation Comments Urine Amphetamines Screen (test code = 52010-5) NEGATIVE NEGATI VE [facility] HospitalU[facility] Methamphetamines Sbsoaf2183-71-35 08:52:00* Test Item Value Reference Range Interpretation Comments Urine Methamphetamines Screen (test code = Urine Metha mphetamines Screen) NEGATIVE NEGATIVE [facility] HospitalU[facility] Benzodiazepines Ucqgxy3519-19-13 08:52:00* Test Item Value Reference Range Interpretation Comments Urine Benzodiazepines Screen (test code = 37221-8) POSITIVE NEG ATIVE H This test provides only a screen. Positive results should be repeated by a confi rmatory test.[facility] HospitalUrine Cocaine Screen 2018-01-21 08:52:00* Test Item Value Reference Range Interpretation Comments Urine Cocaine Screen (test code = 3398-5) NEGATIVE NEGATIVE [facility] HospitalU[facility] Cannabinoids Fivrdc0101-63-29 08:52:00* Test Item Value Reference Range Interpretation Comments Urine Cannabinoids Screen (test code = 87653-3) POSITIVE NEGATI VE H This test provides only a screen. Positive results should be repeated by a confi rmatory test.[facility] HospitalUrine Opiates Screen 2018-01-21 08:52:00* Test Item Value Reference Range Interpretation Comments Urine Opiates Screen (test code = 72652-5) NEGATIVE NEGATIVE [facility] HospitalUrine Barbiturates Zctcey7618-76-59 08:52:00* Test Item Value Reference Range Interpretation Comments Urine Barbiturates Screen (test code = 509374231) NEGATIVE NEGA TIVE [facility] HospitalU[facility] Phencyclidine Xecxlb3238-54-67 08:52:00* Test Item Value Reference Range Interpretation Comments Urine Phencyclidine Screen (test code = 00562-4) NEGATIVE NEGAT HENRY [facility] HospitalUrine Amphetamines Raixen6267-29-17 08:52:00* Test Item Value Reference Range Interpretation Comments Urine Amphetamines Screen (test code = 98146-3) NEGATIVE NEGATI VE [facility] HospitalU[facility] Methamphetamines Yzgpiq2964-23-42 08:52:00* Test Item Value Reference Range Interpretation Comments Urine Methamphetamines Screen (test code = Urine Metha mphetamines Screen) NEGATIVE NEGATIVE [facility] HospitalUrine Benzodiazepines Oldexm1497-48-16 08:52:00* Test Item Value Reference Range Interpretation Comments Urine Benzodiazepines Screen (test code = 12467-1) POSITIVE NEG ATIVE H This test provides only a screen. Positive results should be repeated by a confi rmatory test.[facility] HospitalUrine Cocaine Screen 2018-01-21 08:52:00* Test Item Value Reference Range Interpretation Comments Urine Cocaine Screen (test code = 3398-5) NEGATIVE NEGATIVE [facility] HospitalUrine Cannabinoids Uqyvum2509-59-41 08:52:00* Test Item Value Reference Range Interpretation Comments Urine Cannabinoids Screen (test code = 58027-2) POSITIVE NEGATI VE H This test provides only a screen. Positive results should be repeated by a confi rmatory test.[facility] Wzzbz8423-17-09 08:50:00* Test Item Value Reference Range Interpretation Comments Sodium Level (test code = 2951-2) 139 136-145 [facility] HospitalPotassium Dkqkx1767-42-57 08:50:00* Test Item Value Reference Range Interpretation Comments Potassium Level (test code = 2823-3) 3.4 3.5-5.1 L [facility] HospitalChloride Tzcjo4479-49-03 08:50:00* Test Item Value Reference Range Interpretation Comments Chloride Level (test code = 2075-0) 107 98-107 [facility] HospitalCarbon Dioxide Myffv5947-96-21 08:50:00* Test Item Value Reference Range Interpretation Comments Carbon Dioxide Level (test code = 2028-9) 23 22-29 [facility] HospitalAnion Dek5579-11-14 08:50:00* Test Item Value Reference Range Interpretation Comments Anion Gap (test code = 84934-6) 12.4 8-16 [facility] HospitalBlood Urea Fhwuvlyz7761-75-33 08:50:00* Test Item Value Reference Range Interpretation Comments Blood Urea Nitrogen (test code = 3094-0) 7 7-26 [facility] HospitalCreatinine2018-08-23 08:50:00* Test Item Value Reference Range Interpretation Comments Creatinine (test code = 2160-0) 0.83 0.57-1.11 [facility] HospitalBUN/Creatinine Kdmmr9863-27-77 08:50:00* Test Item Value Reference Range Interpretation Comments BUN/Creatinine Ratio (test code = 3097-3) 8 6- [facility] HospitalEstimat Glomerular Filtration Rate 2018-01-21 08:50:00* Test Item Value Reference Range Interpretation Comments Estimat Glomerular Filtration Rate (test code = 60090-3) 60- >60 Ranges were taken from the National Kidney Disease Education Program and the [facility] literature.Reference ranges:60 or greater: Vruiiv57-66 ( for 3 consecutive months): Chronic kidney disease 15 or less: Kidney failureMemorial Hermann Cypress HospitalGlucose Gsiql7812-86-25 08:50:00* Test Item Value Reference Range Interpretation Comments Glucose Level (test code = PBC2721) 115 74-118 [facility] HospitalCalcium Aguvw4164-49-55 08:50:00* Test Item Value Reference Range Interpretation Comments Calcium Level (test code = 99338-9) 8.9 8.4-10.2 [facility] HospitalTotal Viqihfvra9234-34-74 08:50:00* Test Item Value Reference Range Interpretation Comments Total Bilirubin (test code = 1975-2) 0.4 0.2-1.2 [facility] HospitalAspartate Amino Transf (AST/SGOT) 2018-01-21 08:50:00* Test Item Value Reference Range Interpretation Comments Aspartate Amino Transf (AST/SGOT) (test code = Aspartate Amino Transf (AST/SGOT)) 13 5-34 [facility] HospitalAlanine Aminotransferase (ALT/SGPT) 2018-01-21 08:50:00* Test Item Value Reference Range Interpretation Comments Alanine Aminotransferase (ALT/SGPT) (test code = 1742-6) 15 0-55 [facility] HospitalTotal Jhiamzv3666-76-09 08:50:00* Test Item Value Reference Range Interpretation Comments Total Protein (test code = 2885-2) 6.5 6.5-8.1 [facility] HospitalAlbumin2018-08-23 08:50:00* Test Item Value Reference Range Interpretation Comments Albumin (test code = 1751-7) 3.5 3.5-5.0 [facility] HospitalGlobulin2018-08-23 08:50:00* Test Item Value Reference Range Interpretation Comments Globulin (test code = 24977-0) 3.0 2.3-3.5 [facility] HospitalAlbumin/Globulin Qrkga8047-26-41 08:50:00 * Test Item Value Reference Range Interpretation Comments Albumin/Globulin Ratio (test code = 1759-0) 1.2 0.8-2.0 [facility] HospitalAlkaline Ilttxixnows7753-33-71 08:50:00* Test Item Value Reference Range Interpretation Comments Alkaline Phosphatase (test code = 6768-6) 90 40-150 [facility] HospitalCreatine Wbnvuv4307-60-36 08:50:00* Test Item Value Reference Range Interpretation Comments Creatine Kinase (test code = 2157-6) 75 29-168 [facility] HospitalAmylase Gupjk4568-31-47 08:50:00* Test Item Value Reference Range Interpretation Comments Amylase Level (test code = 1798-8) 96 25-125 [facility] HospitalLipase2018-08-23 08:50:00* Test Item Value Reference Range Interpretation Comments Lipase (test code = 3040-3) 28 8-78 [facility] Metqo5748-81-95 08:50:00* Test Item Value Reference Range Interpretation Comments Sodium Level (test code = 2951-2) 139 136-145 [facility] HospitalPotassium Tcmrj0814-05-36 08:50:00* Test Item Value Reference Range Interpretation Comments Potassium Level (test code = 2823-3) 3.4 3.5-5.1 L [facility] HospitalChloride Cwjtq8304-29-80 08:50:00* Test Item Value Reference Range Interpretation Comments Chloride Level (test code = 2075-0) 107 98-107 [facility] HospitalCarbon Dioxide Ubvwf8998-50-36 08:50:00* Test Item Value Reference Range Interpretation Comments Carbon Dioxide Level (test code = 2028-9) 23 22-29 [facility] HospitalAnion Hpy2873-94-31 08:50:00* Test Item Value Reference Range Interpretation Comments Anion Gap (test code = 67605-0) 12.4 8-16 [facility] HospitalBlood Urea Nttzjcbx8036-79-05 08:50:00* Test Item Value Reference Range Interpretation Comments Blood Urea Nitrogen (test code = 3094-0) 7 7-26 [facility] HospitalCreatinine2018-08-23 08:50:00* Test Item Value Reference Range Interpretation Comments Creatinine (test code = 2160-0) 0.83 0.57-1.11 [facility] HospitalBUN/Creatinine Dsxda5097-11-72 08:50:00* Test Item Value Reference Range Interpretation Comments BUN/Creatinine Ratio (test code = 3097-3) 8 6- [facility] HospitalEstimat Glomerular Filtration Rate 2018-01-21 08:50:00* Test Item Value Reference Range Interpretation Comments Estimat Glomerular Filtration Rate (test code = 82033-3) 60- >60 Ranges were taken from the National Kidney Disease Education Program and the [facility] literature.Reference ranges:60 or greater: Jbrtnj15-00 ( for 3 consecutive months): Chronic kidney disease 15 or less: Kidney failureMemorial Hermann Cypress HospitalGlucose Urhwq2032-67-64 08:50:00* Test Item Value Reference Range Interpretation Comments Glucose Level (test code = PYB3258) 115 74-118 [facility] HospitalCalcium Lpwwb5500-60-88 08:50:00* Test Item Value Reference Range Interpretation Comments Calcium Level (test code = 32274-5) 8.9 8.4-10.2 [facility] HospitalTotal Lwwtrkdpb6290-60-19 08:50:00* Test Item Value Reference Range Interpretation Comments Total Bilirubin (test code = 1975-2) 0.4 0.2-1.2 [facility] HospitalAspartate Amino Transf (AST/SGOT) 2018-01-21 08:50:00* Test Item Value Reference Range Interpretation Comments Aspartate Amino Transf (AST/SGOT) (test code = Aspartate Amino Transf (AST/SGOT)) 13 5-34 [facility] HospitalAlanine Aminotransferase (ALT/SGPT) 2018-01-21 08:50:00* Test Item Value Reference Range Interpretation Comments Alanine Aminotransferase (ALT/SGPT) (test code = 1742-6) 15 0-55 [facility] HospitalTotal Pgalhjn8666-03-39 08:50:00* Test Item Value Reference Range Interpretation Comments Total Protein (test code = 2885-2) 6.5 6.5-8.1 [facility] HospitalAlbumin2018-08-23 08:50:00* Test Item Value Reference Range Interpretation Comments Albumin (test code = 1751-7) 3.5 3.5-5.0 [facility] HospitalGlobulin2018-08-23 08:50:00* Test Item Value Reference Range Interpretation Comments Globulin (test code = 66512-1) 3.0 2.3-3.5 [facility] HospitalAlbumin/Globulin Pkyic9674-05-68 08:50:00 * Test Item Value Reference Range Interpretation Comments Albumin/Globulin Ratio (test code = 1759-0) 1.2 0.8-2.0 [facility] HospitalAlkaline Qmcrbaisyvw2867-19-57 08:50:00* Test Item Value Reference Range Interpretation Comments Alkaline Phosphatase (test code = 6768-6) 90 40-150 [facility] HospitalCreatine Eqipst1677-55-80 08:50:00* Test Item Value Reference Range Interpretation Comments Creatine Kinase (test code = 2157-6) 75 29-168 [facility] HospitalAmylase Qemoz0291-62-03 08:50:00* Test Item Value Reference Range Interpretation Comments Amylase Level (test code = 1798-8) 96 25-125 [facility] HospitalLipase2018-08-23 08:50:00* Test Item Value Reference Range Interpretation Comments Lipase (test code = 3040-3) 28 8-78 [facility] HospitalCreatine Zemude5891-23-73 08:50:00* Test Item Value Reference Range Interpretation Comments Creatine Kinase (test code = 2157-6) 75 29-168 [facility] HospitalAmylase Knvql6946-03-57 08:50:00* Test Item Value Reference Range Interpretation Comments Amylase Level (test code = 1798-8) 96 25-125 [facility] HospitalCreatine Wimuvg1505-18-70 08:50:00* Test Item Value Reference Range Interpretation Comments Creatine Kinase (test code = 2157-6) 75 29-168 [facility] HospitalCreatine Govaml8942-02-07 08:50:00* Test Item Value Reference Range Interpretation Comments Creatine Kinase (test code = 2157-6) 75 29-168 [facility] HospitalCreatine Bsprsx4260-25-86 08:50:00* Test Item Value Reference Range Interpretation Comments Creatine Kinase (test code = 2157-6) 75 29-168 [facility] HospitalCreatine Ohxqao3078-99-42 08:50:00* Test Item Value Reference Range Interpretation Comments Creatine Kinase (test code = 2157-6) 75 29-168 [facility] HospitalCreatine Dtronm0662-99-93 08:50:00* Test Item Value Reference Range Interpretation Comments Creatine Kinase (test code = 2157-6) 75 29-168 [facility] HospitalCreatine Ezghzr1518-82-55 08:50:00* Test Item Value Reference Range Interpretation Comments Creatine Kinase (test code = 2157-6) 75 29-168 [facility] HospitalCreatine Kudakg5683-36-92 08:50:00* Test Item Value Reference Range Interpretation Comments Creatine Kinase (test code = 2157-6) 75 29-168 [facility] HospitalHuman Chorionic Gonadotropin, Qual 2018-01-21 08:38:00* Test Item Value Reference Range Interpretation Comments Human Chorionic Gonadotropin, Qual (test code = 8-8) NEGATIVE NEGATIVE [facility] Chorionic Gonadotropin, Qual 2018-01-21 08:38:00* Test Item Value Reference Range Interpretation Comments Human Chorionic Gonadotropin, Qual (test code = 8-8) NEGATIVE NEGATIVE [facility] Chorionic Gonadotropin, Qual 2018-01-21 08:38:00* Test Item Value Reference Range Interpretation Comments Human Chorionic Gonadotropin, Qual (test code = 8-8) NEGATIVE NEGATIVE [facility] HospitalUrine YSI6007-88-02 08:35:00* Test Item Value Reference Range Interpretation Comments Urine WBC (test code = 5821-4) 0-5 0-5 [facility] HospitalUrine FZM9159-78-28 08:35:00* Test Item Value Reference Range Interpretation Comments Urine RBC (test code = 19375-8) 0-5 0-5 [facility] HospitalUrine Palavaum9382-40-63 08:35:00* Test Item Value Reference Range Interpretation Comments Urine Bacteria (test code = 87558-5) MANY NONE H [facility] HospitalUrine Epithelial Aiopt6654-43-77 08:35:00 * Test Item Value Reference Range Interpretation Comments Urine Epithelial Cells (test code = 24217-1) MODERATE NONE [facility] HospitalUrine Vaoip1588-08-60 08:30:00* Test Item Value Reference Range Interpretation Comments Urine Color (test code = 5778-6) YELLOW YELLOW [facility] HospitalUrine Pqfpwxs1099-08-85 08:30:00* Test Item Value Reference Range Interpretation Comments Urine Clarity (test code = 10255-6) SL CLOUDY CLEAR [facility] HospitalUrine Specific Jjkscvf4772-34-12 08:30:00 * Test Item Value Reference Range Interpretation Comments Urine Specific [place] (test code = 5811-5) 1.005 1.010-1.02 5 L [facility] HospitalUrine iM7561-37-90 08:30:00* Test Item Value Reference Range Interpretation Comments Urine pH (test code = 95537-4) 6 5-7 [facility] HospitalUrine Leukocyte Iptqbwsf0287-52-07 08:30:00* Test Item Value Reference Range Interpretation Comments Urine Leukocyte Esterase (test code = 5799-2) NEGATIVE NEGATIVE [facility] HospitalUrine Jvyqepv4562-65-99 08:30:00* Test Item Value Reference Range Interpretation Comments Urine Nitrite (test code = 35743-5) POSITIVE NEGATIVE H [facility] HospitalUrine Lgvgnwd9570-73-87 08:30:00* Test Item Value Reference Range Interpretation Comments Urine Protein (test code = 5804-0) NEGATIVE NEGATIVE [facility] HospitalUrine Glucose (UA)2018-01-21 08:30:00* Test Item Value Reference Range Interpretation Comments Urine Glucose (UA) (test code = 2349-9) NEGATIVE NEGATIVE [facility] HospitalUrine Dghiuly7116-30-66 08:30:00* Test Item Value Reference Range Interpretation Comments Urine Ketones (test code = 81280-9) NEGATIVE NEGATIVE [facility] HospitalUrine Ardwqmfcsczz7150-51-17 08:30:00* Test Item Value Reference Range Interpretation Comments Urine Urobilinogen (test code = 10185-3) 0.2 0.2-1 [facility] HospitalUrine Xcmpsgynf2876-88-06 08:30:00* Test Item Value Reference Range Interpretation Comments Urine Bilirubin (test code = 1978-6) NEGATIVE NEGATIVE [facility] HospitalUrine Fdiwz1600-49-04 08:30:00* Test Item Value Reference Range Interpretation Comments Urine Blood (test code = 26025-8) NEGATIVE NEGATIVE [facility] HospitalWhite Blood Mwlki6024-83-50 08:29:00* Test Item Value Reference Range Interpretation Comments White Blood Count (test code = 6690-2) 5.64 4.8-10.8 [facility] HospitalRed Blood Tozjs7501-38-62 08:29:00* Test Item Value Reference Range Interpretation Comments Red Blood Count (test code = 789-8) 4.36 3.6-5.1 [facility] HospitalHemoglobin2018-08-23 08:29:00* Test Item Value Reference Range Interpretation Comments Hemoglobin (test code = 00333-6) 12.8 12.0-16.0 [facility] HospitalHematocrit2018-08-23 08:29:00* Test Item Value Reference Range Interpretation Comments Hematocrit (test code = 4544-3) 37.7 34.2-44.1 [facility] HospitalMean Corpuscular Pjqosu4456-35-78 08:29:00* Test Item Value Reference Range Interpretation Comments Mean Corpuscular Volume (test code = 787-2) 86.5 81-99 [facility] HospitalMean Corpuscular Epcphkjodk7830-38-98 08:29:00* Test Item Value Reference Range Interpretation Comments Mean Corpuscular Hemoglobin (test code = 785-6) 29.4 28-32 [facility] HospitalMean Corpuscular Hemoglobin Concent 2018-01-21 08:29:00* Test Item Value Reference Range Interpretation Comments Mean Corpuscular Hemoglobin Concent (test code = 786-4) 34.0 31-35 [facility] HospitalRed Cell Distribution Lqgze9130-82-16 08:29:00* Test Item Value Reference Range Interpretation Comments Red Cell Distribution Width (test code = 80749-8) 14.2 11.7 -14.4 [facility] HospitalPlatelet Rfgdc2669-28-91 08:29:00* Test Item Value Reference Range Interpretation Comments Platelet Count (test code = 777-3) 263 140-360 [facility] HospitalNeutrophils (%) (Auto)2018-01-21 08:29:00 * Test Item Value Reference Range Interpretation Comments Neutrophils (%) (Auto) (test code = 08456-3) 64.9 38.7-80.0 [facility] HospitalLymphocytes (%) (Auto)2018-01-21 08:29:00 * Test Item Value Reference Range Interpretation Comments Lymphocytes (%) (Auto) (test code = 736-9) 28.2 18.0-39.1 [facility] HospitalMonocytes (%) (Auto)2018-01-21 08:29:00* Test Item Value Reference Range Interpretation Comments Monocytes (%) (Auto) (test code = 5905-5) 5.0 4.4-11.3 [facility] HospitalEosinophils (%) (Auto)2018-01-21 08:29:00 * Test Item Value Reference Range Interpretation Comments Eosinophils (%) (Auto) (test code = 713-8) 1.4 0.0-6.0 [facility] HospitalBasophils (%) (Auto)2018-01-21 08:29:00* Test Item Value Reference Range Interpretation Comments Basophils (%) (Auto) (test code = 706-2) 0.5 0.0-1.0 [facility] HospitalIM GRANULOCYTES %2018-01-21 08:29:00* Test Item Value Reference Range Interpretation Comments IM GRANULOCYTES % (test code = IM GRANULOCYTES %) 0.0 0.0- 1.0 [facility] HospitalNeutrophils # (Auto)2018-01-21 08:29:00* Test Item Value Reference Range Interpretation Comments Neutrophils # (Auto) (test code = 751-8) 3.7 2.1-6.9 [facility] HospitalLymphocytes # (Auto)2018-01-21 08:29:00* Test Item Value Reference Range Interpretation Comments Lymphocytes # (Auto) (test code = 04593-2) 1.6 1.0-3.2 [facility] HospitalMonocytes # (Auto)2018-01-21 08:29:00* Test Item Value Reference Range Interpretation Comments Monocytes # (Auto) (test code = 742-7) 0.3 0.2-0.8 [facility] HospitalEosinophils # (Auto)2018-01-21 08:29:00* Test Item Value Reference Range Interpretation Comments Eosinophils # (Auto) (test code = 711-2) 0.1 0.0-0.4 [facility] HospitalBasophils # (Auto)2018-01-21 08:29:00* Test Item Value Reference Range Interpretation Comments Basophils # (Auto) (test code = 704-7) 0.0 0.0-0.1 [facility] HospitalAbsolute Immature Granulocyte (auto 2018-01-21 08:29:00* Test Item Value Reference Range Interpretation Comments Absolute Immature Granulocyte (auto (alexa t code = Absolute Immature Granulocyte (auto) 0 0-0.1 [facility] HospitalWhite Blood Sdxba2585-25-00 08:29:00* Test Item Value Reference Range Interpretation Comments White Blood Count (test code = 6690-2) 5.64 4.8-10.8 [facility] HospitalRed Blood Llzmi9465-32-96 08:29:00* Test Item Value Reference Range Interpretation Comments Red Blood Count (test code = 789-8) 4.36 3.6-5.1 [facility] HospitalHemoglobin2018-08-23 08:29:00* Test Item Value Reference Range Interpretation Comments Hemoglobin (test code = 09502-0) 12.8 12.0-16.0 [facility] HospitalHematocrit2018-08-23 08:29:00* Test Item Value Reference Range Interpretation Comments Hematocrit (test code = 4544-3) 37.7 34.2-44.1 [facility] HospitalMean Corpuscular Fqqcnq2777-95-28 08:29:00* Test Item Value Reference Range Interpretation Comments Mean Corpuscular Volume (test code = 787-2) 86.5 81-99 [facility] HospitalMean Corpuscular Vqjbjiidya9126-09-16 08:29:00* Test Item Value Reference Range Interpretation Comments Mean Corpuscular Hemoglobin (test code = 785-6) 29.4 28-32 [facility] HospitalMean Corpuscular Hemoglobin Concent 2018-01-21 08:29:00* Test Item Value Reference Range Interpretation Comments Mean Corpuscular Hemoglobin Concent (test code = 786-4) 34.0 31-35 [facility] HospitalRed Cell Distribution Wpmxb0471-22-98 08:29:00* Test Item Value Reference Range Interpretation Comments Red Cell Distribution Width (test code = 28113-0) 14.2 11.7 -14.4 [facility] HospitalPlatelet Fwvpm3782-43-62 08:29:00* Test Item Value Reference Range Interpretation Comments Platelet Count (test code = 777-3) 263 140-360 [facility] HospitalNeutrophils (%) (Auto)2018-01-21 08:29:00 * Test Item Value Reference Range Interpretation Comments Neutrophils (%) (Auto) (test code = 09040-4) 64.9 38.7-80.0 [facility] HospitalLymphocytes (%) (Auto)2018-01-21 08:29:00 * Test Item Value Reference Range Interpretation Comments Lymphocytes (%) (Auto) (test code = 736-9) 28.2 18.0-39.1 [facility] HospitalMonocytes (%) (Auto)2018-01-21 08:29:00* Test Item Value Reference Range Interpretation Comments Monocytes (%) (Auto) (test code = 5905-5) 5.0 4.4-11.3 [facility] HospitalEosinophils (%) (Auto)2018-01-21 08:29:00 * Test Item Value Reference Range Interpretation Comments Eosinophils (%) (Auto) (test code = 713-8) 1.4 0.0-6.0 [facility] HospitalBasophils (%) (Auto)2018-01-21 08:29:00* Test Item Value Reference Range Interpretation Comments Basophils (%) (Auto) (test code = 706-2) 0.5 0.0-1.0 [facility] HospitalIM GRANULOCYTES %2018-01-21 08:29:00* Test Item Value Reference Range Interpretation Comments IM GRANULOCYTES % (test code = IM GRANULOCYTES %) 0.0 0.0- 1.0 [facility] HospitalNeutrophils # (Auto)2018-01-21 08:29:00* Test Item Value Reference Range Interpretation Comments Neutrophils # (Auto) (test code = 751-8) 3.7 2.1-6.9 [facility] HospitalLymphocytes # (Auto)2018-01-21 08:29:00* Test Item Value Reference Range Interpretation Comments Lymphocytes # (Auto) (test code = 94589-5) 1.6 1.0-3.2 [facility] HospitalMonocytes # (Auto)2018-01-21 08:29:00* Test Item Value Reference Range Interpretation Comments Monocytes # (Auto) (test code = 742-7) 0.3 0.2-0.8 [facility] HospitalEosinophils # (Auto)2018-01-21 08:29:00* Test Item Value Reference Range Interpretation Comments Eosinophils # (Auto) (test code = 711-2) 0.1 0.0-0.4 [facility] HospitalBasophils # (Auto)2018-01-21 08:29:00* Test Item Value Reference Range Interpretation Comments Basophils # (Auto) (test code = 704-7) 0.0 0.0-0.1 [facility] HospitalAbsolute Immature Granulocyte (auto 2018-01-21 08:29:00* Test Item Value Reference Range Interpretation Comments Absolute Immature Granulocyte (auto (alexa t code = Absolute Immature Granulocyte (auto) 0 0-0.1 [facility] HospitalCT ABDOMEN/PELVIS J3044-69-02 12:07:00 [place] [address] Patient Name: ANGELA ESPINOSA MR #: [id number] OB: 1975 Age/Sex: 42/F Req #: [id number] Adm Physic domo: Ordered by: MADELINE GILBERT MD Report #: [id number] Location: ER om/Bed: Procedure: CT/CT ABDOMEN/PELVIS W Exam Date: 12/04/17 Exam Time: 1121 REPORT STAT US: Signed PROCEDURE: CT ABDOMEN AND PELVIS WITH CONTRAST TECHNIQUE: The abdomen and pelvis were scanned utilizing a multidetector helical scanner from the diaphragm to the lesser trochanter after the IV administration of 100 cc of Isovue 370 and the oral administration of Gastrografin intermixed w ith water. Coronal and sagittal multiplanar reformations were obtained. DLP: 840.70 mGy-cm COMPARISON: None. INDICATIONS: EPIGASTRIC PA IN FINDINGS: LOWER THORAX: Minimal amount of basilar pleural thickening/ fluid. HEPATOBILIARY: No focal hepatic lesions. No biliary ductal dilatat ion. Gallbladder is surgically removed. SPLEEN: No splenomegaly. PANCREAS : No focal masses or ductal dilatation. ADRENALS: No adrenal nodules. KI DNEYS/URETERS: No hydronephrosis or solid mass lesions. Small left exophytic renal cyst. Irregularity of the left upper pole compatible with persistent fe francisco lobulation versus scarring. Nonobstructing left interpolar 3 mm stone. PELVIC ORGANS/BLADDER: Unremarkable. Uterus and adnexal structures are absent . PERITONEUM / RETROPERITONEUM: Minimal amount of fluid in the right pe lvis is likely physiologic. LYMPH NODES: No lymphadenopathy. VESSELS: Unrema rkable arterial vasculature. There is a retroaortic left renal vein. GI TRACT: No distention or wall thickening. BONES AND SOFT TISSUES: Small pamella ne islands involving L5. Small umbilical hernia. IMPRESSION: 1. N o acute abnormality involving the abdomen or pelvis. 2. Nonobstructing tiny le ft interpolar renal stone. Lisa Sales D.O. Dictated by: Rachid Sales D.O. on 12/04/2017 at 12:07 Electronically approved by: Lisa Sales D.O. on 12/04/2017 at 12:07 Dictated By: LISA SALES DO 120 Transcribed By: FAVIAN on 12/04/171206 COPY TO: MADELINE GILBERT MD Amylase Level 2017-12-04 08:54:00* Test Item Value Reference Range Interpretation Comments Amylase Level (test code = 1798-8) 52 25-125 [facility] HospitalLipase2018-07-06 08:54:00* Test Item Value Reference Range Interpretation Comments Lipase (test code = 3040-3) 20 8-78 [facility] Elvmg5787-83-94 08:41:00* Test Item Value Reference Range Interpretation Comments Sodium Level (test code = 2951-2) 138 136-145 [facility] HospitalPotassium Uoscu9479-91-43 08:41:00* Test Item Value Reference Range Interpretation Comments Potassium Level (test code = 2823-3) 3.7 3.5-5.1 [facility] HospitalChloride Rsrkb1635-98-67 08:41:00* Test Item Value Reference Range Interpretation Comments Chloride Level (test code = 2075-0) 108 98-107 H [facility] HospitalCarbon Dioxide Bnmwr7617-74-23 08:41:00* Test Item Value Reference Range Interpretation Comments Carbon Dioxide Level (test code = 2028-9) 22 22-29 [facility] HospitalAnion Oid9098-28-46 08:41:00* Test Item Value Reference Range Interpretation Comments Anion Gap (test code = 77728-1) 11.7 8-16 [facility] HospitalBlood Urea Uvjtuvyk1501-06-23 08:41:00* Test Item Value Reference Range Interpretation Comments Blood Urea Nitrogen (test code = 3094-0) 11 7-26 [facility] HospitalCreatinine2018-07-06 08:41:00* Test Item Value Reference Range Interpretation Comments Creatinine (test code = 2160-0) 0.88 0.57-1.11 [facility] HospitalBUN/Creatinine Tfoif6075-67-03 08:41:00* Test Item Value Reference Range Interpretation Comments BUN/Creatinine Ratio (test code = 3097-3) 13 6-25 [facility] HospitalEstimat Glomerular Filtration Rate 2017-12-04 08:41:00* Test Item Value Reference Range Interpretation Comments Estimat Glomerular Filtration Rate (test code = 78124-7) 60- >60 Ranges were taken from the National Kidney Disease Education Program and the [employer] [facility] [employer] literature.Reference ranges:60 or greater: Bowuhb18-75 ( for 3 consecutive months): Chronic kidney disease 15 or less: Kidney failureMemorial Hermann Cypress HospitalGlucose Ztcht5035-64-43 08:41:00* Test Item Value Reference Range Interpretation Comments Glucose Level (test code = CXI1942) 95 74-118 [facility] HospitalCalcium Byseo5458-82-23 08:41:00* Test Item Value Reference Range Interpretation Comments Calcium Level (test code = 93576-8) 9.2 8.4-10.2 [facility] HospitalTotal Xyhxaskrs9955-48-52 08:41:00* Test Item Value Reference Range Interpretation Comments Total Bilirubin (test code = 1975-2) 0.8 0.2-1.2 [facility] HospitalAspartate Amino Transf (AST/SGOT) 2017-12-04 08:41:00* Test Item Value Reference Range Interpretation Comments Aspartate Amino Transf (AST/SGOT) (test code = Aspartate Amino Transf (AST/SGOT)) 15 5-34 [facility] HospitalAlanine Aminotransferase (ALT/SGPT) 2017-12-04 08:41:00* Test Item Value Reference Range Interpretation Comments Alanine Aminotransferase (ALT/SGPT) (test code = 1742-6) 13 0-55 [facility] HospitalTotal Cnelsgc0267-97-45 08:41:00* Test Item Value Reference Range Interpretation Comments Total Protein (test code = 2885-2) 6.9 6.5-8.1 [facility] HospitalAlbumin2018-07-06 08:41:00* Test Item Value Reference Range Interpretation Comments Albumin (test code = 1751-7) 3.8 3.5-5.0 [facility] HospitalGlobulin2018-07-06 08:41:00* Test Item Value Reference Range Interpretation Comments Globulin (test code = 33015-4) 3.1 2.3-3.5 [facility] HospitalAlbumin/Globulin Cxfec9138-04-72 08:41:00 * Test Item Value Reference Range Interpretation Comments Albumin/Globulin Ratio (test code = 1759-0) 1.2 0.8-2.0 [facility] HospitalAlkaline Mqdplqhdocr1108-58-87 08:41:00* Test Item Value Reference Range Interpretation Comments Alkaline Phosphatase (test code = 6768-6) 83 40-150 [facility] HospitalUrine IEI3187-96-23 08:39:00* Test Item Value Reference Range Interpretation Comments Urine WBC (test code = 5821-4) 0-5 0-5 [facility] HospitalUrine VUX8487-12-50 08:39:00* Test Item Value Reference Range Interpretation Comments Urine RBC (test code = 06118-0) NONE 0-5 [facility] HospitalUrine Njxnohhh0413-99-44 08:39:00* Test Item Value Reference Range Interpretation Comments Urine Bacteria (test code = 68954-7) FEW NONE [facility] HospitalUrine Epithelial Ntylc7888-53-68 08:39:00 * Test Item Value Reference Range Interpretation Comments Urine Epithelial Cells (test code = 63132-1) FEW NONE [facility] HospitalUrine Gtcvf4223-21-23 08:28:00* Test Item Value Reference Range Interpretation Comments Urine Color (test code = 5778-6) YELLOW YELLOW [facility] HospitalUrine Lbyseog7106-79-05 08:28:00* Test Item Value Reference Range Interpretation Comments Urine Clarity (test code = 39765-9) CLEAR CLEAR [facility] HospitalUrine Specific Rdsnrpt2713-50-31 08:28:00 * Test Item Value Reference Range Interpretation Comments Urine Specific [place] (test code = 5811-5) 1.020 1.010-1.02 5 [facility] HospitalUrine dS4671-00-72 08:28:00* Test Item Value Reference Range Interpretation Comments Urine pH (test code = 85316-8) 6 5-7 [facility] HospitalUrine Leukocyte Nyortfri4066-42-67 08:28:00* Test Item Value Reference Range Interpretation Comments Urine Leukocyte Esterase (test code = 5799-2) NEGATIVE NEGATIVE [facility] HospitalUrine Abgfdzn7189-40-78 08:28:00* Test Item Value Reference Range Interpretation Comments Urine Nitrite (test code = 34370-7) NEGATIVE NEGATIVE [facility] HospitalUrine Bkufxcr0002-48-21 08:28:00* Test Item Value Reference Range Interpretation Comments Urine Protein (test code = 5804-0) NEGATIVE NEGATIVE [facility] HospitalUrine Glucose (UA)2017-12-04 08:28:00* Test Item Value Reference Range Interpretation Comments Urine Glucose (UA) (test code = 2349-9) NEGATIVE NEGATIVE [facility] HospitalUrine Rixlefo7889-41-53 08:28:00* Test Item Value Reference Range Interpretation Comments Urine Ketones (test code = 43657-9) NEGATIVE NEGATIVE [facility] HospitalUrine Pwfhrvjvoear6736-29-04 08:28:00* Test Item Value Reference Range Interpretation Comments Urine Urobilinogen (test code = 87708-2) 0.2 0.2-1 [facility] HospitalUrine Ehkeqjaxz8328-46-58 08:28:00* Test Item Value Reference Range Interpretation Comments Urine Bilirubin (test code = 1978-6) NEGATIVE NEGATIVE [facility] HospitalU[facility] Auvcc4010-01-22 08:28:00* Test Item Value Reference Range Interpretation Comments Urine Blood (test code = 06050-6) NEGATIVE NEGATIVE [facility] HospitalWhite Blood Pbgkv0167-12-08 08:25:00* Test Item Value Reference Range Interpretation Comments White Blood Count (test code = 6690-2) 6.93 4.8-10.8 [facility] HospitalRed Blood Vnrks2362-50-37 08:25:00* Test Item Value Reference Range Interpretation Comments Red Blood Count (test code = 789-8) 4.59 3.6-5.1 [facility] HospitalHemoglobin2018-07-06 08:25:00* Test Item Value Reference Range Interpretation Comments Hemoglobin (test code = 29800-5) 13.1 12.0-16.0 [facility] HospitalHematocrit2018-07-06 08:25:00* Test Item Value Reference Range Interpretation Comments Hematocrit (test code = 4544-3) 38.0 34.2-44.1 [facility] HospitalMean Corpuscular Iredkl8740-07-75 08:25:00* Test Item Value Reference Range Interpretation Comments Mean Corpuscular Volume (test code = 787-2) 82.8 81-99 [facility] HospitalMean Corpuscular Kbpmzggskp7148-25-81 08:25:00* Test Item Value Reference Range Interpretation Comments Mean Corpuscular Hemoglobin (test code = 785-6) 28.5 28-32 [facility] HospitalMean Corpuscular Hemoglobin Concent 2017-12-04 08:25:00* Test Item Value Reference Range Interpretation Comments Mean Corpuscular Hemoglobin Concent (test code = 786-4) 34.5 31-35 [facility] HospitalRed Cell Distribution Ydlsw1593-39-94 08:25:00* Test Item Value Reference Range Interpretation Comments Red Cell Distribution Width (test code = 45141-0) 13.8 11.7 -14.4 [facility] HospitalPlatelet Ejcio5548-32-19 08:25:00* Test Item Value Reference Range Interpretation Comments Platelet Count (test code = 777-3) 275 140-360 [facility] HospitalNeutrophils (%) (Auto)2017-12-04 08:25:00 * Test Item Value Reference Range Interpretation Comments Neutrophils (%) (Auto) (test code = 30193-9) 71.1 38.7-80.0 [facility] HospitalLymphocytes (%) (Auto)2017-12-04 08:25:00 * Test Item Value Reference Range Interpretation Comments Lymphocytes (%) (Auto) (test code = 736-9) 22.5 18.0-39.1 [facility] HospitalMonocytes (%) (Auto)2017-12-04 08:25:00* Test Item Value Reference Range Interpretation Comments Monocytes (%) (Auto) (test code = 5905-5) 4.2 4.4-11.3 L [facility] HospitalEosinophils (%) (Auto)2017-12-04 08:25:00 * Test Item Value Reference Range Interpretation Comments Eosinophils (%) (Auto) (test code = 713-8) 1.4 0.0-6.0 [facility] HospitalBasophils (%) (Auto)2017-12-04 08:25:00* Test Item Value Reference Range Interpretation Comments Basophils (%) (Auto) (test code = 706-2) 0.7 0.0-1.0 [facility] HospitalIM GRANULOCYTES %2017-12-04 08:25:00* Test Item Value Reference Range Interpretation Comments IM GRANULOCYTES % (test code = IM GRANULOCYTES %) 0.1 0.0- 1.0 [facility] HospitalNeutrophils # (Auto)2017-12-04 08:25:00* Test Item Value Reference Range Interpretation Comments Neutrophils # (Auto) (test code = 751-8) 4.9 2.1-6.9 [facility] HospitalLymphocytes # (Auto)2017-12-04 08:25:00* Test Item Value Reference Range Interpretation Comments Lymphocytes # (Auto) (test code = 66352-2) 1.6 1.0-3.2 [facility] HospitalMonocytes # (Auto)2017-12-04 08:25:00* Test Item Value Reference Range Interpretation Comments Monocytes # (Auto) (test code = 742-7) 0.3 0.2-0.8 [facility] HospitalEosinophils # (Auto)2017-12-04 08:25:00* Test Item Value Reference Range Interpretation Comments Eosinophils # (Auto) (test code = 711-2) 0.1 0.0-0.4 [facility] HospitalBasophils # (Auto)2017-12-04 08:25:00* Test Item Value Reference Range Interpretation Comments Basophils # (Auto) (test code = 704-7) 0.1 0.0-0.1 [facility] HospitalAbsolute Immature Granulocyte (auto 2017-12-04 08:25:00* Test Item Value Reference Range Interpretation Comments Absolute Immature Granulocyte (auto (alexa t code = Absolute Immature Granulocyte (auto) 0.01 0-0.1 [facility] HospitalCT ABDOMEN/PELVIS L6902-44-01 10:22:00 [facility] [address] [address] Patient Name: ANGELA ESPINSOA MR #: [id number] OB: 1975 Age/Sex: 41/F Req #: [id number] Adm Physic domo: Ordered by: CANDE LOUIS MD Report #: [id number] Location: ER Room/Bed: Procedure: [id number] CT/CT ABDOMEN/PELVIS W Exam Date: 11/17/17 Exam Time: [address] ATUS: Signed PROCEDURE: CT ABDOMEN AND PELVIS WITH CONTRAST TECHNIQUE: The abdomen and pelvis were scanned utilizing a multidetector helical scan ner from the diaphragm to the lesser trochanter after the IV administration o f 100 cc of Isovue 370 and the oral administration of Gastrografin. Coronal a nd sagittal multiplanar reformations were obtained. COMPARISON: 10/27/19. INDICATIONS: RIGHT LOWER QUADRANT PAIN FINDINGS: LOWER THORA X: Subsegmental atelectasis in the dependent portions of the lower lobes. No pleural or pericardial effusion.. HEPATOBILIARY: No focal hepatic lesion o r intrahepatic biliary ductal dilatation. The gallbladder has been removed wi th multiple metallic clips in the gallbladder fossa. SPLEEN: No splenomegal y. PANCREAS: No focal masses or ductal dilatation. ADRENALS: No adrenal nodules. KIDNEYS/URETERS: Unchanged scarring versus lobulation of the le ft kidney with a subcentimeter exophytic low-attenuation structure, too sm all to further characterize but likely represent a small cyst. No additional focal renal lesions. No hydronephrosis or calculus. PELVIC ORGANS/BLADDER: The urinary bladder is unremarkable. The uterus is not identified and has presum ably been removed. Right ovarian corpus luteum cyst. PERITONEUM / RETRO PERITONEUM: No ascites or pneumoperitoneum. Previously described trace fluid along the right paracolic gutter has resolved. LYMPH NODES: No pelvic sidew all, retroperitoneal, or mesenteric lymphadenopathy. VESSELS: The abdominal aorta, major branch vessels, and iliac arterial systems are patent, without aneurysmal dilatation. Hepatic arterial anatomy appears conventional. A singl e renal artery perfuses each kidney. Retroaortic left renal vein. Portal vein , splenic vein, and central superior mesenteric vein are patent. GI TRA CT: The large bowel shows no evidence of distention or wall thickening though the transverse and descending colon are collapsed and poorly evaluated. The appendix is again poorly visualized. A linear structure felt to represent a n ormal appendix is again noted on series 2 image 55. There is no small bowel d ilatation to suggest obstruction. BONES AND SOFT TISSUES: Small fat contai dolly supraumbilical ventral hernia with associated postsurgical changes of th e anterior abdominal wall. No additional focal soft tissue abnormalities. No osseous destructive lesions. IMPRESSION: No acute intra-abdominal or pelvic CT abnormalities. Questionable visualization of the appendix, with out right lower quadrant inflammation. Dictated by: Cam Andres M.D. on 11/17/2017 at 10:22 Electronically approved by: Cam Andres M.D. on at 10:22 Dictated By: CAM ANDRES MD Electronically Si gned By: CAM ANDRES MD on 11/17/17 1022 Transcribed By: FAVIAN on 11/17/17 10 22 COPY TO: CANDE LOUIS MD Sodium Fkopu9412-79-30 08:38:00 * Test Item Value Reference Range Interpretation Comments Sodium Level (test code = 2951-2) 136 136-145 [facility] HospitalPotassium Sottq5589-81-02 08:38:00* Test Item Value Reference Range Interpretation Comments Potassium Level (test code = 2823-3) 4.2 3.5-5.1 [facility] HospitalChloride Rronl3866-18-86 08:38:00* Test Item Value Reference Range Interpretation Comments Chloride Level (test code = 2075-0) 109 98-107 H [facility] HospitalCarbon Dioxide Uwaix1288-79-10 08:38:00* Test Item Value Reference Range Interpretation Comments Carbon Dioxide Level (test code = 8-9) 19 22-29 L [facility] HospitalAnion Fwa1719-57-73 08:38:00* Test Item Value Reference Range Interpretation Comments Anion Gap (test code = 83282-2) 12.2 8-16 [facility] HospitalBlood Urea Qavrhcmk7334-48-41 08:38:00* Test Item Value Reference Range Interpretation Comments Blood Urea Nitrogen (test code = 3094-0) 14 7-26 [facility] HospitalCreatinine2018-06-19 08:38:00* Test Item Value Reference Range Interpretation Comments Creatinine (test code = 2160-0) 0.83 0.57-1.11 [facility] HospitalBUN/Creatinine Pbtxj5780-19-75 08:38:00* Test Item Value Reference Range Interpretation Comments BUN/Creatinine Ratio (test code = 3097-3) 17 6-25 [facility] HospitalEstimat Glomerular Filtration Rate 2017-11-17 08:38:00* Test Item Value Reference Range Interpretation Comments Estimat Glomerular Filtration Rate (test code = 33455-5) 60- >60 Ranges were taken from the National Kidney Disease Education Program and the [facility] literature.Reference ranges:60 or greater: Jeicht60-01 ( for 3 consecutive months): Chronic kidney disease 15 or less: Kidney failureMemorial Hermann Cypress HospitalGlucose Yrmhd2953-39-86 08:38:00* Test Item Value Reference Range Interpretation Comments Glucose Level (test code = PCT7227) 105 74-118 [facility] HospitalCalcium Xhzao9168-79-74 08:38:00* Test Item Value Reference Range Interpretation Comments Calcium Level (test code = 23325-1) 9.2 8.4-10.2 [facility] HospitalTotal Hbcdnxvqr5421-10-84 08:38:00* Test Item Value Reference Range Interpretation Comments Total Bilirubin (test code = 1975-2) 0.3 0.2-1.2 [facility] HospitalAspartate Amino Transf (AST/SGOT) 2017-11-17 08:38:00* Test Item Value Reference Range Interpretation Comments Aspartate Amino Transf (AST/SGOT) (test code = Aspartate Amino Transf (AST/SGOT)) 14 5-34 [facility] HospitalAlanine Aminotransferase (ALT/SGPT) 2017-11-17 08:38:00* Test Item Value Reference Range Interpretation Comments Alanine Aminotransferase (ALT/SGPT) (test code = 1742-6) 18 0-55 [facility] HospitalTotal Fymruvi6626-14-74 08:38:00* Test Item Value Reference Range Interpretation Comments Total Protein (test code = 2885-2) 6.8 6.5-8.1 [facility] HospitalAlbumin2018-06-19 08:38:00* Test Item Value Reference Range Interpretation Comments Albumin (test code = 1751-7) 3.8 3.5-5.0 [facility] HospitalGlobulin2018-06-19 08:38:00* Test Item Value Reference Range Interpretation Comments Globulin (test code = 59234-4) 3.0 2.3-3.5 [facility] HospitalAlbumin/Globulin Rfzpu9271-80-05 08:38:00 * Test Item Value Reference Range Interpretation Comments Albumin/Globulin Ratio (test code = 1759-0) 1.3 0.8-2.0 [facility] HospitalAlkaline Gburbvzjqjr4226-23-87 08:38:00* Test Item Value Reference Range Interpretation Comments Alkaline Phosphatase (test code = 6768-6) 87 40-150 [facility] HospitalAmylase Dgwpq3508-54-18 08:38:00* Test Item Value Reference Range Interpretation Comments Amylase Level (test code = 1798-8) 79 25-125 [facility] HospitalLipase2018-06-19 08:38:00* Test Item Value Reference Range Interpretation Comments Lipase (test code = 3040-3) 38 8-78 [facility] HospitalUrine CCC2161-02-47 08:23:00* Test Item Value Reference Range Interpretation Comments Urine WBC (test code = 5821-4) 0-5 0-5 [facility] HospitalUrine UVY8427-13-82 08:23:00* Test Item Value Reference Range Interpretation Comments Urine RBC (test code = 57291-4) 0-5 0-5 [facility] HospitalUrine Kdfsgoko2917-11-51 08:23:00* Test Item Value Reference Range Interpretation Comments Urine Bacteria (test code = 91412-3) FEW NONE [facility] HospitalUrine Epithelial Nfirk2429-79-57 08:23:00 * Test Item Value Reference Range Interpretation Comments Urine Epithelial Cells (test code = 42894-3) MODERATE NONE [facility] HospitalUrine Eeywk7385-02-43 08:20:00* Test Item Value Reference Range Interpretation Comments Urine Color (test code = 5778-6) YELLOW YELLOW [facility] HospitalUrine Krqdszu4486-42-11 08:20:00* Test Item Value Reference Range Interpretation Comments Urine Clarity (test code = 11074-7) SL CLOUDY CLEAR [facility] Specific Mvbcghp5137-87-45 08:20:00 * Test Item Value Reference Range Interpretation Comments Urine Specific [place] (test code = 5811-5) 1.025 1.010-1.02 5 [facility] HospitalUrine dZ6227-21-51 08:20:00* Test Item Value Reference Range Interpretation Comments Urine pH (test code = 37043-9) 6 5-7 [facility] HospitalUrine Leukocyte Jumituki3316-76-29 08:20:00* Test Item Value Reference Range Interpretation Comments Urine Leukocyte Esterase (test code = 5799-2) NEGATIVE NEGATIVE [facility] HospitalUrine Cvvayvp5093-66-30 08:20:00* Test Item Value Reference Range Interpretation Comments Urine Nitrite (test code = 00266-6) NEGATIVE NEGATIVE [facility] HospitalUrine Mgpodnr8509-55-82 08:20:00* Test Item Value Reference Range Interpretation Comments Urine Protein (test code = 5804-0) NEGATIVE NEGATIVE [facility] HospitalUrine Glucose (UA)2017-11-17 08:20:00* Test Item Value Reference Range Interpretation Comments Urine Glucose (UA) (test code = 2349-9) NEGATIVE NEGATIVE [facility] HospitalUrine Yxkuxzk6834-13-48 08:20:00* Test Item Value Reference Range Interpretation Comments Urine Ketones (test code = 16827-7) NEGATIVE NEGATIVE [facility] HospitalUrine Uizhcrlnysof3817-03-35 08:20:00* Test Item Value Reference Range Interpretation Comments Urine Urobilinogen (test code = 51976-0) 0.2 0.2-1 [facility] HospitalUrine Kdubpdjnb1450-75-71 08:20:00* Test Item Value Reference Range Interpretation Comments Urine Bilirubin (test code = 1978-6) NEGATIVE NEGATIVE [facility] HospitalUrine Dnnmt8479-54-83 08:20:00* Test Item Value Reference Range Interpretation Comments Urine Blood (test code = 21215-8) NEGATIVE NEGATIVE [facility] HospitalWhite Blood Jairi2739-12-12 08:19:00* Test Item Value Reference Range Interpretation Comments White Blood Count (test code = 6690-2) 6.52 4.8-10.8 [facility] HospitalRed Blood Rfmms9953-52-50 08:19:00* Test Item Value Reference Range Interpretation Comments Red Blood Count (test code = 789-8) 4.53 3.6-5.1 [facility] HospitalHemoglobin2018-06-19 08:19:00* Test Item Value Reference Range Interpretation Comments Hemoglobin (test code = 73997-9) 13.1 12.0-16.0 [facility] HospitalHematocrit2018-06-19 08:19:00* Test Item Value Reference Range Interpretation Comments Hematocrit (test code = 4544-3) 38.2 34.2-44.1 [facility] HospitalMean Corpuscular Eukrws5642-77-52 08:19:00* Test Item Value Reference Range Interpretation Comments Mean Corpuscular Volume (test code = 787-2) 84.3 81-99 [facility] HospitalMean Corpuscular Kfojmfipqy4075-20-12 08:19:00* Test Item Value Reference Range Interpretation Comments Mean Corpuscular Hemoglobin (test code = 785-6) 28.9 28-32 [facility] HospitalMean Corpuscular Hemoglobin Concent 2017-11-17 08:19:00* Test Item Value Reference Range Interpretation Comments Mean Corpuscular Hemoglobin Concent (test code = 786-4) 34.3 31-35 [facility] HospitalRed Cell Distribution Heqwr2368-64-07 08:19:00* Test Item Value Reference Range Interpretation Comments Red Cell Distribution Width (test code = 74297-0) 14.1 11.7 -14.4 [facility] HospitalPlatelet Ntmlw6979-36-79 08:19:00* Test Item Value Reference Range Interpretation Comments Platelet Count (test code = 777-3) 275 140-360 [facility] HospitalNeutrophils (%) (Auto)2017-11-17 08:19:00 * Test Item Value Reference Range Interpretation Comments Neutrophils (%) (Auto) (test code = 12673-3) 69.1 38.7-80.0 [facility] HospitalLymphocytes (%) (Auto)2017-11-17 08:19:00 * Test Item Value Reference Range Interpretation Comments Lymphocytes (%) (Auto) (test code = 736-9) 23.3 18.0-39.1 [facility] HospitalMonocytes (%) (Auto)2017-11-17 08:19:00* Test Item Value Reference Range Interpretation Comments Monocytes (%) (Auto) (test code = 5905-5) 5.2 4.4-11.3 [facility] HospitalEosinophils (%) (Auto)2017-11-17 08:19:00 * Test Item Value Reference Range Interpretation Comments Eosinophils (%) (Auto) (test code = 713-8) 1.4 0.0-6.0 [facility] HospitalBasophils (%) (Auto)2017-11-17 08:19:00* Test Item Value Reference Range Interpretation Comments Basophils (%) (Auto) (test code = 706-2) 0.8 0.0-1.0 [facility] HospitalIM GRANULOCYTES %2017-11-17 08:19:00* Test Item Value Reference Range Interpretation Comments IM GRANULOCYTES % (test code = IM GRANULOCYTES %) 0.2 0.0- 1.0 [facility] HospitalNeutrophils # (Auto)2017-11-17 08:19:00* Test Item Value Reference Range Interpretation Comments Neutrophils # (Auto) (test code = 751-8) 4.5 2.1-6.9 [facility] HospitalLymphocytes # (Auto)2017-11-17 08:19:00* Test Item Value Reference Range Interpretation Comments Lymphocytes # (Auto) (test code = 44419-0) 1.5 1.0-3.2 [facility] HospitalMonocytes # (Auto)2017-11-17 08:19:00* Test Item Value Reference Range Interpretation Comments Monocytes # (Auto) (test code = 742-7) 0.3 0.2-0.8 [facility] HospitalEosinophils # (Auto)2017-11-17 08:19:00* Test Item Value Reference Range Interpretation Comments Eosinophils # (Auto) (test code = 711-2) 0.1 0.0-0.4 [facility] HospitalBasophils # (Auto)2017-11-17 08:19:00* Test Item Value Reference Range Interpretation Comments Basophils # (Auto) (test code = 704-7) 0.1 0.0-0.1 [facility] HospitalAbsolute Immature Granulocyte (auto 2017-11-17 08:19:00* Test Item Value Reference Range Interpretation Comments Absolute Immature Granulocyte (auto (alexa t code = Absolute Immature Granulocyte (auto) 0.01 0-0.1 [facility] HospitalAspartate Amino Transf (AST/SGOT) 2017-10-26 10:34:00* Test Item Value Reference Range Interpretation Comments Aspartate Amino Transf (AST/SGOT) (test code = Aspartate Amino Transf (AST/SGOT)) 14 5-34 [facility] HospitalCreatine Ubdynr8959-02-10 10:34:00* Test Item Value Reference Range Interpretation Comments Creatine Kinase (test code = 2157-6) 58 29-168 [facility] HospitalCreatine Daqtch6846-76-45 10:34:00* Test Item Value Reference Range Interpretation Comments Creatine Kinase (test code = 2157-6) 58 29-168 [facility] HospitalCreatine Bhdfpk3134-00-86 10:34:00* Test Item Value Reference Range Interpretation Comments Creatine Kinase (test code = 2157-6) 58 29-168 [facility] HospitalCreatine Kinase AR0576-21-98 10:28:00* Test Item Value Reference Range Interpretation Comments Creatine Kinase MB (test code = 23609-2) 0.90 0-5.0 [place] 67838018-05-28 10:28:00* Test Item Value Reference Range Interpretation Comments Troponin I (test code = SZS8899) -0.001 0-0.300 [facility] HospitalCreatine Kinase HJ3755-21-87 10:28:00* Test Item Value Reference Range Interpretation Comments Creatine Kinase MB (test code = 38791-6) 0.90 0-5.0 [place] 67838018-05-28 10:28:00* Test Item Value Reference Range Interpretation Comments Troponin I (test code = GHZ8017) -0.001 0-0.300 [facility] HospitalCreatine Kinase NC2934-90-97 10:28:00* Test Item Value Reference Range Interpretation Comments Creatine Kinase MB (test code = 29730-1) 0.90 0-5.0 [place] 67838018-05-28 10:28:00* Test Item Value Reference Range Interpretation Comments Troponin I (test code = PXP2385) -0.001 0-0.300 [facility] Rewjd5659-53-13 10:22:00* Test Item Value Reference Range Interpretation Comments Sodium Level (test code = 2951-2) 138 136-145 [facility] HospitalPotassium Lheuv0662-89-42 10:22:00* Test Item Value Reference Range Interpretation Comments Potassium Level (test code = 2823-3) 4.8 3.5-5.1 [facility] HospitalChloride Qozrm7281-55-08 10:22:00* Test Item Value Reference Range Interpretation Comments Chloride Level (test code = 2075-0) 109 98-107 H [facility] HospitalCarbon Dioxide Jcdnr2720-16-92 10:22:00* Test Item Value Reference Range Interpretation Comments Carbon Dioxide Level (test code = 2028-9) 22 - [facility] HospitalAnion Rkt1107-40-30 10:22:00* Test Item Value Reference Range Interpretation Comments Anion Gap (test code = 78533-5) 11.8 8-16 [facility] HospitalBlood Urea Ifkorchm2014-86-27 10:22:00* Test Item Value Reference Range Interpretation Comments Blood Urea Nitrogen (test code = 3094-0) 11 7-26 [facility] HospitalCreatinine2018-05-28 10:22:00* Test Item Value Reference Range Interpretation Comments Creatinine (test code = 2160-0) 0.84 0.57-1.11 [facility] HospitalBUN/Creatinine Lhabv0496-50-85 10:22:00* Test Item Value Reference Range Interpretation Comments BUN/Creatinine Ratio (test code = 3097-3) 13 11-23 [facility] HospitalEstimat Glomerular Filtration Rate 2017-10-26 10:22:00* Test Item Value Reference Range Interpretation Comments Estimat Glomerular Filtration Rate (test code = 00539-2) 60- >60 Ranges were taken from the National Kidney Disease Education Program and the [facility] literature.Reference ranges:60 or greater: Orhqqi53-91 ( for 3 consecutive months): Chronic kidney disease 15 or less: Kidney failureMemorial Hermann Cypress HospitalGlucose Carkq0070-73-26 10:22:00* Test Item Value Reference Range Interpretation Comments Glucose Level (test code = EPH7970) 98 74-118 [facility] HospitalCalcium Ygeez9886-20-59 10:22:00* Test Item Value Reference Range Interpretation Comments Calcium Level (test code = 33751-6) 9.1 8.4-10.2 [facility] HospitalTotal Zhkvkrvld8912-33-08 10:22:00* Test Item Value Reference Range Interpretation Comments Total Bilirubin (test code = 1975-2) 0.3 0.2-1.2 [facility] HospitalAlanine Aminotransferase (ALT/SGPT) 2017-10-26 10:22:00* Test Item Value Reference Range Interpretation Comments Alanine Aminotransferase (ALT/SGPT) (test code = 1742-6) 23 0-55 [facility] HospitalTotal Gihnwrn3920-86-30 10:22:00* Test Item Value Reference Range Interpretation Comments Total Protein (test code = 2885-2) 6.6 6.5-8.1 [facility] HospitalAlbumin2018-05-28 10:22:00* Test Item Value Reference Range Interpretation Comments Albumin (test code = 1751-7) 3.6 3.5-5.0 [facility] HospitalGlobulin2018-05-28 10:22:00* Test Item Value Reference Range Interpretation Comments Globulin (test code = 90634-6) 3.0 2.3-3.5 [facility] HospitalAlbumin/Globulin Tiehm9491-42-69 10:22:00 * Test Item Value Reference Range Interpretation Comments Albumin/Globulin Ratio (test code = 1759-0) 1.2 0.8-2.0 [facility] HospitalAlkaline Ucfiwgdckcm1923-29-73 10:22:00* Test Item Value Reference Range Interpretation Comments Alkaline Phosphatase (test code = 6768-6) 79 40-150 [facility] 10:22[facility]00* Test Item Value Reference Range Interpretation Comments Lipase (test code = 3040-3) 43 8-78 [facility] [id number] 10:21:00* Test Item Value Reference Range Interpretation Comments Urine WBC (test code = 5821-4) 0-5 0-5 [facility] EAF3991-30-11 10:21:00* Test Item Value Reference Range Interpretation Comments Urine RBC (test code = 13341-5) 0-5 0-5 [facility] Icvuyltp5349-87-98 10:21:00* Test Item Value Reference Range Interpretation Comments Urine Bacteria (test code = 83499-2) FEW NONE [facility] Epithelial Iyrqa0603-58-33 10:21:00 * Test Item Value Reference Range Interpretation Comments Urine Epithelial Cells (test code = 29952-4) [facility]2018-05-28 10:21:00* Test Item Value Reference Range Interpretation Comments Urine Mucus (test code = 8247-9) FEW [facility]2018-05-28 10:21:00* Test Item Value Reference Range Interpretation Comments Urine Mucus (test code = 8247-9) [facility]2018-05-28 10:21:00* Test Item Value Reference Range Interpretation Comments Urine Mucus (test code = 8247-9) [facility]2018-05-28 10:21:00* Test Item Value Reference Range Interpretation Comments Urine Mucus (test code = 8247-9) [facility]2018-05-28 10:21:00* Test Item Value Reference Range Interpretation Comments Urine Mucus (test code = 8247-9) [facility]2018-05-28 10:21:00* Test Item Value Reference Range Interpretation Comments Urine Mucus (test code = 8247-9) [facility]2018-05-28 10:21:00* Test Item Value Reference Range Interpretation Comments Urine Mucus (test code = 8247-9) [facility]2018-05-28 10:21:00* Test Item Value Reference Range Interpretation Comments Urine Mucus (test code = 8247-9) [facility] Pcjdb6845-62-65 10:21:00* Test Item Value Reference Range Interpretation Comments Urine Mucus (test code = 8247-9) [facility] Hqrfw6618-04-51 10:21:00* Test Item Value Reference Range Interpretation Comments Urine Mucus (test code = 8247-9) [facility]2018-05-28 10:21:00* Test Item Value Reference Range Interpretation Comments Urine Mucus (test code = 8247-9) FEW RARE H [facility] Heygx6440-59-81 10:12:00* Test Item Value Reference Range Interpretation Comments Urine Color (test code = 5778-6) YELLOW YELLOW [facility] Litthuv5334-42-01 10:12:00* Test Item Value Reference Range Interpretation Comments Urine Clarity (test code = 89291-5) CLEAR CLEAR [facility] HospitalU[facility] Specific Dyvvnjl2425-83-80 10:12:00 * Test Item Value Reference Range Interpretation Comments Urine Specific [place] (test code = 5811-5) 1.015 1.010-1.02 5 [facility] pR7806-72-53 10:12:00* Test Item Value Reference Range Interpretation Comments Urine pH (test code = 43118-8) 5 5-7 [facility] Leukocyte Glshbtwq1043-05-20 10:12:00* Test Item Value Reference Range Interpretation Comments Urine Leukocyte Esterase (test code = 5799-2) NEGATIVE NEGATIVE [facility] Vmcreay4478-62-11 10:12:00* Test Item Value Reference Range Interpretation Comments Urine Nitrite (test code = 20454-2) NEGATIVE NEGATIVE [facility] Shypsqq9287-47-39 10:12:00* Test Item Value Reference Range Interpretation Comments Urine Protein (test code = 5804-0) NEGATIVE NEGATIVE [facility] Glucose (UA)2017-10-26 10:12:00* Test Item Value Reference Range Interpretation Comments Urine Glucose (UA) (test code = 2349-9) NEGATIVE NEGATIVE [facility] Jzripgu4174-22-31 10:12:00* Test Item Value Reference Range Interpretation Comments Urine Ketones (test code = 53986-5) NEGATIVE NEGATIVE [facility] Lwpymviaevtl0833-75-86 10:12:00* Test Item Value Reference Range Interpretation Comments Urine Urobilinogen (test code = 88003-5) 0.2 0.2-1 [facility] Bnyknhlej3338-13-16 10:12:00* Test Item Value Reference Range Interpretation Comments Urine Bilirubin (test code = 1978-6) NEGATIVE NEGATIVE [facility] Juwpm7104-46-53 10:12:00* Test Item Value Reference Range Interpretation Comments Urine Blood (test code = 58866-3) NEGATIVE NEGATIVE [facility] HospitalWhite Blood Oxkct9763-76-45 10:10:00* Test Item Value Reference Range Interpretation Comments White Blood Count (test code = 6690-2) 6.34 4.8-10.8 [facility]Red Blood Djynl7892-59-84 10:10:00* Test Item Value Reference Range Interpretation Comments Red Blood Count (test code = 789-8) 4.58 3.6-5.1 [facility] HospitalHemoglobin2018-05-28 10:10:00* Test Item Value Reference Range Interpretation Comments Hemoglobin (test code = 46452-6) 13.1 12.0-16.0 [facility] HospitalHematocrit2018-05-28 10:10:00* Test Item Value Reference Range Interpretation Comments Hematocrit (test code = 4544-3) 40.0 34.2-44.1 [facility] HospitalMean Corpuscular Aljyaf4194-24-51 10:10:00* Test Item Value Reference Range Interpretation Comments Mean Corpuscular Volume (test code = 787-2) 87.3 81-99 [facility] HospitalMean Corpuscular Lyxwgadphn1584-59-98 10:10:00* Test Item Value Reference Range Interpretation Comments Mean Corpuscular Hemoglobin (test code = 785-6) 28.6 28-32 [facility] HospitalMean Corpuscular Hemoglobin Concent 2017-10-26 10:10:00* Test Item Value Reference Range Interpretation Comments Mean Corpuscular Hemoglobin Concent (test code = 786-4) 32.8 31-35 [facility] HospitalRed Cell Distribution Mlzci8350-36-65 10:10:00* Test Item Value Reference Range Interpretation Comments Red Cell Distribution Width (test code = 39899-1) 14.1 11.7 -14.4 [facility] HospitalPlatelet Nfdic9183-38-65 10:10:00* Test Item Value Reference Range Interpretation Comments Platelet Count (test code = 777-3) 259 140-360 [facility] HospitalNeutrophils (%) (Auto)2017-10-26 10:10:00 * Test Item Value Reference Range Interpretation Comments Neutrophils (%) (Auto) (test code = 63222-8) 65.6 38.7-80.0 [facility] HospitalLymphocytes (%) (Auto)2017-10-26 10:10:00 * Test Item Value Reference Range Interpretation Comments Lymphocytes (%) (Auto) (test code = 736-9) 25.6 18.0-39.1 [facility] HospitalMonocytes (%) (Auto)2017-10-26 10:10:00* Test Item Value Reference Range Interpretation Comments Monocytes (%) (Auto) (test code = 5905-5) 5.7 4.4-11.3 [facility] HospitalEosinophils (%) (Auto)2017-10-26 10:10:00 * Test Item Value Reference Range Interpretation Comments Eosinophils (%) (Auto) (test code = 713-8) 2.2 0.0-6.0 [facility] HospitalBasophils (%) (Auto)2017-10-26 10:10:00* Test Item Value Reference Range Interpretation Comments Basophils (%) (Auto) (test code = 706-2) 0.6 0.0-1.0 [facility] HospitalIM GRANULOCYTES %2017-10-26 10:10:00* Test Item Value Reference Range Interpretation Comments IM GRANULOCYTES % (test code = IM GRANULOCYTES %) 0.3 0.0- 1.0 [facility] HospitalNeutrophils # (Auto)2017-10-26 10:10:00* Test Item Value Reference Range Interpretation Comments Neutrophils # (Auto) (test code = 751-8) 4.2 2.1-6.9 [facility] HospitalLymphocytes # (Auto)2017-10-26 10:10:00* Test Item Value Reference Range Interpretation Comments Lymphocytes # (Auto) (test code = 01629-0) 1.6 1.0-3.2 [facility] HospitalMonocytes # (Auto)2017-10-26 10:10:00* Test Item Value Reference Range Interpretation Comments Monocytes # (Auto) (test code = 742-7) 0.4 0.2-0.8 [facility] HospitalEosinophils # (Auto)2017-10-26 10:10:00* Test Item Value Reference Range Interpretation Comments Eosinophils # (Auto) (test code = 711-2) 0.1 0.0-0.4 [facility] HospitalBasophils # (Auto)2017-10-26 10:10:00* Test Item Value Reference Range Interpretation Comments Basophils # (Auto) (test code = 704-7) 0.0 0.0-0.1 [facility] HospitalAbsolute Immature Granulocyte (auto 2017-10-26 10:10:00* Test Item Value Reference Range Interpretation Comments Absolute Immature Granulocyte (auto (alexa t code = Absolute Immature Granulocyte (auto) 0.02 0-0.1 [facility] HospitalURINALYSIS W/ REFLEX URINE CULTURE 2017-10-25 10:27:00* Test Item Value Reference Range Interpretation Comments COLOR (BEAKER) (test code = 470) Light Yellow CLARITY (BEAKER) (test code = 469) Clear SPECIFIC GRAVITY UA (BEAKER) (test code = 468) 1.005 1.001-1 .035 PH UA (BEAKER) (test code = 467) 6.0 5.0-8.0 PROTEIN UA (BEAKER) (test code = 464) Negative Negative GLUCOSE UA (BEAKER) (test code = 365) Negative Negative KETONES UA (BEAKER) (test code = 371) Negative Negative BILIRUBIN UA (BEAKER) (test code = 462) Negative Negative BLOOD UA (BEAKER) (test code = 461) Negative Negative NITRITE UA (BEAKER) (test code = 465) Negative Negative LEUKOCYTE ESTERASE UA (BEAKER) (test code = 466) Negative Negat henry UROBILINOGEN UA (BEAKER) (test code = 463) 0.2 mg/dL 0.2-1.0 RBC UA (BEAKER) (test code = 519) < /HPF WBC UA (BEAKER) (test code = 520) 6 /HPF BACTERIA (BEAKER) (test code = 517) Rare MUCUS (BEAKER) (test code = 1574) Rare SQUAMOUS EPITHELIAL (BEAKER) (test code = 516) 3 /HPF AMORPHOUS CRYSTALS (BEAKER) (test code = 1584) Rare SOURCE(BEAKER) (test code = 2795) CT, BNJVFNC7474-45-44 10:25:00FINAL REPORT CT of the abdomen and pelvis, [...] adenopathy. No ascites. No worrisome skeletal findings. IMPRESSION:No acute findings. Signed: Kely Al MDReport Verified Date/Time: 10/25/2017 10:25:23 Reading Location: [address] Reading Room Electronically signed by: KELY AL M.D. on 10/25 10:25 AM PSEMBI0537-18-28 09:08:00* Test Item Value Reference Range Interpretation Comments LIPASE (BEAKER) (test code = 749) 40 U/L 8-78 COMPREHENSIVE METABOLIC KZTCO7002-87-12 09:08:00* Test Item Value Reference Range Interpretation Comments TOTAL PROTEIN (BEAKER) (test code = 770) 6.3 gm/dL 6.0-8.3 ALBUMIN (BEAKER) (test code = 1145) 3.9 g/dL 3.5-5.0 ALKALINE PHOSPHATASE (BEAKER) (test code = 346) 80 U/L 40-150 BILIRUBIN TOTAL (BEAKER) (test code = 377) 0.2 mg/dL 0.2-1.2 SODIUM (BEAKER) (test code = 381) 142 meq/L 136-145 POTASSIUM (BEAKER) (test code = 379) 3.8 meq/L 3.5-5.1 CHLORIDE (BEAKER) (test code = 382) 111 meq/L 98-107 H CO2 (BEAKER) (test code = 355) 23 meq/L 22-29 BLOOD UREA NITROGEN (BEAKER) (test code = 354) 14 mg/dL 7-21 CREATININE (BEAKER) (test code = 358) 0.80 mg/dL 0.57-1.25 GLUCOSE RANDOM (BEAKER) (test code = 652) 126 mg/dL 70-105 H CALCIUM (BEAKER) (test code = 697) 8.8 mg/dL 8.4-10.2 AST (SGOT) (BEAKER) (test code = 353) 14 U/L 5-34 ALT (SGPT) (BEAKER) (test code = 347) 21 U/L 6-55 EGFR (BEAKER) (test code = 1092) 80 mL/min/1.73 sq m ESTIMATED GFR IS NOT ACCURATE CREATININE CLEARANCE IN PREDICTING GLOMERULAR FILTRATION RATE. ESTIMATED GFR IS NOT APPLICABLE FOR DIALYSIS PATIENTS. CBC W/PLT COUNT & AUTO GGVHZJQOPXLA1366-94-54 08:46:00* Test Item Value Reference Range Interpretation Comments WHITE BLOOD CELL COUNT (BEAKER) (test code = 775) 6.2 K/ L 3.5- 10.5 RED BLOOD CELL COUNT (BEAKER) (test code = 761) 4.48 M/ L 3.93-5 .22 HEMOGLOBIN (BEAKER) (test code = 410) 12.7 GM/DL 11.2-15.7 HEMATOCRIT (BEAKER) (test code = 411) 39.5 % 34.1-44.9 MEAN CORPUSCULAR VOLUME (BEAKER) (test code = 753) 88.2 fL 79. 4-94.8 MEAN CORPUSCULAR HEMOGLOBIN (BEAKER) (test code = 751) 28.3 pg 25.6-32.2 MEAN CORPUSCULAR HEMOGLOBIN CONC (BEAKER) (test code = 752) 32.2 GM/DL 32.2-35.5 RED CELL DISTRIBUTION WIDTH (BEAKER) (test code = 412) 13.9 % 11.7-14.4 PLATELET COUNT (BEAKER) (test code = 756) 259 K/CU MM 150-450 MEAN PLATELET VOLUME (BEAKER) (test code = 754) 9.6 fL 9.4-12 .3 NUCLEATED RED BLOOD CELLS (BEAKER) (test code = 413) 0 /100 WBC 0 -0 NEUTROPHILS RELATIVE PERCENT (BEAKER) (test code = 429) 67 % LYMPHOCYTES RELATIVE PERCENT (BEAKER) (test code = 430) 25 % MONOCYTES RELATIVE PERCENT (BEAKER) (test code = 431) 6 % EOSINOPHILS RELATIVE PERCENT (BEAKER) (test code = 432) 2 % BASOPHILS RELATIVE PERCENT (BEAKER) (test code = 437) 0 % NEUTROPHILS ABSOLUTE COUNT (BEAKER) (test code = 670) 4.15 K/ L 1.56-6.13 LYMPHOCYTES ABSOLUTE COUNT (BEAKER) (test code = 414) 1.52 K/ L 1.18-3.74 MONOCYTES ABSOLUTE COUNT (BEAKER) (test code = 415) 0.38 K/ L 0. 24-0.36 H EOSINOPHILS ABSOLUTE COUNT (BEAKER) (test code = 416) 0.09 K/ L 0.04-0.36 BASOPHILS ABSOLUTE COUNT (BEAKER) (test code = 417) 0.02 K/ L 0. 01-0.08 IMMATURE GRANULOCYTES-RELATIVE PERCENT (BEAKER) (test code = 2801) 1 % 0-1 Sodium Covoa6037-69-94 08:51:00* Test Item Value Reference Range Interpretation Comments Sodium Level (test code = 2951-2) 137 136-145 [facility] HospitalPotassium Aarqg6493-12-00 08:51:00* Test Item Value Reference Range Interpretation Comments Potassium Level (test code = 2823-3) 3.5 3.5-5.1 [facility] HospitalChloride Udyqh6517-45-42 08:51:00* Test Item Value Reference Range Interpretation Comments Chloride Level (test code = 2075-0) 103 98-107 [facility] HospitalCarbon Dioxide Mfnup9392-63-82 08:51:00* Test Item Value Reference Range Interpretation Comments Carbon Dioxide Level (test code = 2028-9) 24 22-29 [facility] HospitalAnion Mru0964-10-48 08:51:00* Test Item Value Reference Range Interpretation Comments Anion Gap (test code = 20837-3) 13.5 8-16 [facility] HospitalBlood Urea Ayozrztd2567-71-87 08:51:00* Test Item Value Reference Range Interpretation Comments Blood Urea Nitrogen (test code = 3094-0) 10 7-26 [facility] HospitalCreatinine2018-04-11 08:51:00* Test Item Value Reference Range Interpretation Comments Creatinine (test code = 2160-0) 0.90 0.57-1.11 [facility] HospitalBUN/Creatinine Nbgdl8106-09-21 08:51:00* Test Item Value Reference Range Interpretation Comments BUN/Creatinine Ratio (test code = 3097-3) 11 6- [facility] HospitalEstimat Glomerular Filtration Rate 2017-09-09 08:51:00* Test Item Value Reference Range Interpretation Comments Estimat Glomerular Filtration Rate (test code = 96608-2) 60- >60 Ranges were taken from the National Kidney Disease Education Program and the [facility] [employer] literature.Reference ranges:60 or greater: Pfzoxp13-05 ( for 3 consecutive months): Chronic kidney disease 15 or less: Kidney failureMemorial Hermann Cypress HospitalGlucose Qxllf8422-09-51 08:51:00* Test Item Value Reference Range Interpretation Comments Glucose Level (test code = ZHI5652) 172 74-118 H [facility] HospitalCalcium Tddhr8247-99-03 08:51:00* Test Item Value Reference Range Interpretation Comments Calcium Level (test code = 64117-1) 9.3 8.4-10.2 [facility] HospitalTotal Jssxocxvv8969-39-20 08:51:00* Test Item Value Reference Range Interpretation Comments Total Bilirubin (test code = 1975-2) 0.8 0.2-1.2 [facility] HospitalAspartate Amino Transf (AST/SGOT) 2017-09-09 08:51:00* Test Item Value Reference Range Interpretation Comments Aspartate Amino Transf (AST/SGOT) (test code = Aspartate Amino Transf (AST/SGOT)) 14 5-34 [facility] HospitalAlanine Aminotransferase (ALT/SGPT) 2017-09-09 08:51:00* Test Item Value Reference Range Interpretation Comments Alanine Aminotransferase (ALT/SGPT) (test code = 1742-6) 15 0-55 [facility] HospitalTotal Zcpsiof3046-81-42 08:51:00* Test Item Value Reference Range Interpretation Comments Total Protein (test code = 2885-2) 7.0 6.5-8.1 [facility] HospitalAlbumin2018-04-11 08:51:00* Test Item Value Reference Range Interpretation Comments Albumin (test code = 1751-7) 3.8 3.5-5.0 [facility] HospitalGlobulin2018-04-11 08:51:00* Test Item Value Reference Range Interpretation Comments Globulin (test code = 96623-9) 3.2 2.3-3.5 [facility] HospitalAlbumin/Globulin Eovdt8969-30-63 08:51:00 * Test Item Value Reference Range Interpretation Comments Albumin/Globulin Ratio (test code = 1759-0) 1.2 0.8-2.0 [facility] HospitalAlkaline Kzzkwiazpob5754-87-04 08:51:00* Test Item Value Reference Range Interpretation Comments Alkaline Phosphatase (test code = 6768-6) 88 40-150 [facility] HospitalLipase2018-04-11 08:51:00* Test Item Value Reference Range Interpretation Comments Lipase (test code = 3040-3) 38 8-78 [facility] HospitalUrine FYN8094-53-72 08:50:00* Test Item Value Reference Range Interpretation Comments Urine WBC (test code = 5821-4) NONE 0-5 [facility] HospitalUrine JRE6058-55-92 08:50:00* Test Item Value Reference Range Interpretation Comments Urine RBC (test code = 39678-0) NONE 0-5 [facility] HospitalUrine Zboabhmb0555-97-52 08:50:00* Test Item Value Reference Range Interpretation Comments Urine Bacteria (test code = 01102-9) RARE NONE [facility] HospitalUrine Epithelial Zlzse1929-99-70 08:50:00 * Test Item Value Reference Range Interpretation Comments Urine Epithelial Cells (test code = 40453-0) FEW NONE [facility] HospitalUrine Wwqgv9105-08-09 08:50:00* Test Item Value Reference Range Interpretation Comments Urine Mucus (test code = 8247-9) RARE RARE [facility] HospitalUrine Aakgs9269-22-92 08:37:00* Test Item Value Reference Range Interpretation Comments Urine Color (test code = 5778-6) YELLOW YELLOW [facility] HospitalUrine Nmdqhdy3874-11-28 08:37:00* Test Item Value Reference Range Interpretation Comments Urine Clarity (test code = 59216-0) SL CLOUDY CLEAR [facility] HospitalUrine Specific Vzfrncd3276-51-62 08:37:00 * Test Item Value Reference Range Interpretation Comments Urine Specific [place] (test code = 5811-5) 1.020 1.010-1.02 5 [facility] HospitalUrine vT0695-94-21 08:37:00* Test Item Value Reference Range Interpretation Comments Urine pH (test code = 94692-9) 6.5 5-7 [facility] HospitalUrine Leukocyte Qyeujwrw1682-54-16 08:37:00* Test Item Value Reference Range Interpretation Comments Urine Leukocyte Esterase (test code = 5799-2) NEGATIVE NEGATIVE [facility] HospitalUrine Rekumod4918-94-64 08:37:00* Test Item Value Reference Range Interpretation Comments Urine Nitrite (test code = 10821-4) NEGATIVE NEGATIVE [facility] HospitalUrine Jgeidwo3001-11-78 08:37:00* Test Item Value Reference Range Interpretation Comments Urine Protein (test code = 5804-0) NEGATIVE NEGATIVE [facility] HospitalUrine Glucose (UA)2017-09-09 08:37:00* Test Item Value Reference Range Interpretation Comments Urine Glucose (UA) (test code = 2349-9) NEGATIVE NEGATIVE [facility] HospitalUrine Tegleto2170-02-30 08:37:00* Test Item Value Reference Range Interpretation Comments Urine Ketones (test code = 19743-6) NEGATIVE NEGATIVE [facility] HospitalUrine Yzeayhqiocfs6520-23-81 08:37:00* Test Item Value Reference Range Interpretation Comments Urine Urobilinogen (test code = 97706-7) 0.2 0.2-1 [facility] HospitalUrine Dggqecuaq4230-64-35 08:37:00* Test Item Value Reference Range Interpretation Comments Urine Bilirubin (test code = 1978-6) NEGATIVE NEGATIVE [facility] HospitalUrine Bstww9590-27-92 08:37:00* Test Item Value Reference Range Interpretation Comments Urine Blood (test code = 59136-1) NEGATIVE NEGATIVE [facility] HospitalWhite Blood Qxnsl1673-36-14 08:36:00* Test Item Value Reference Range Interpretation Comments White Blood Count (test code = 6690-2) 6.20 4.8-10.8 [facility] HospitalRed Blood Dseht2206-14-57 08:36:00* Test Item Value Reference Range Interpretation Comments Red Blood Count (test code = 789-8) 4.71 3.6-5.1 [facility] HospitalHemoglobin2018-04-11 08:36:00* Test Item Value Reference Range Interpretation Comments Hemoglobin (test code = 04281-6) 13.8 12.0-16.0 [facility] HospitalHematocrit2018-04-11 08:36:00* Test Item Value Reference Range Interpretation Comments Hematocrit (test code = 4544-3) 40.5 34.2-44.1 [facility] HospitalMean Corpuscular Ddmaoh7013-71-71 08:36:00* Test Item Value Reference Range Interpretation Comments Mean Corpuscular Volume (test code = 787-2) 86.0 81-99 [facility] HospitalMean Corpuscular Sseqqxuzjc0440-76-68 08:36:00* Test Item Value Reference Range Interpretation Comments Mean Corpuscular Hemoglobin (test code = 785-6) 29.3 28-32 [facility] HospitalMean Corpuscular Hemoglobin Concent 2017-09-09 08:36:00* Test Item Value Reference Range Interpretation Comments Mean Corpuscular Hemoglobin Concent (test code = 786-4) 34.1 31-35 [facility] HospitalRed Cell Distribution Hfxfx1939-96-02 08:36:00* Test Item Value Reference Range Interpretation Comments Red Cell Distribution Width (test code = 86442-6) 13.3 11.7 -14.4 [facility] HospitalPlatelet Kusuo1115-50-34 08:36:00* Test Item Value Reference Range Interpretation Comments Platelet Count (test code = 777-3) 292 140-360 [facility] HospitalNeutrophils (%) (Auto)2017-09-09 08:36:00 * Test Item Value Reference Range Interpretation Comments Neutrophils (%) (Auto) (test code = 75302-6) 73.3 38.7-80.0 [facility] HospitalLymphocytes (%) (Auto)2017-09-09 08:36:00 * Test Item Value Reference Range Interpretation Comments Lymphocytes (%) (Auto) (test code = 736-9) 19.4 18.0-39.1 [facility] HospitalMonocytes (%) (Auto)2017-09-09 08:36:00* Test Item Value Reference Range Interpretation Comments Monocytes (%) (Auto) (test code = 5905-5) 4.5 4.4-11.3 [facility] HospitalEosinophils (%) (Auto)2017-09-09 08:36:00 * Test Item Value Reference Range Interpretation Comments Eosinophils (%) (Auto) (test code = 713-8) 1.9 0.0-6.0 [facility] HospitalBasophils (%) (Auto)2017-09-09 08:36:00* Test Item Value Reference Range Interpretation Comments Basophils (%) (Auto) (test code = 706-2) 0.6 0.0-1.0 [facility] HospitalIM GRANULOCYTES %2017-09-09 08:36:00* Test Item Value Reference Range Interpretation Comments IM GRANULOCYTES % (test code = IM GRANULOCYTES %) 0.3 0.0- 1.0 [facility] HospitalNeutrophils # (Auto)2017-09-09 08:36:00* Test Item Value Reference Range Interpretation Comments Neutrophils # (Auto) (test code = 751-8) 4.5 2.1-6.9 [facility] HospitalLymphocytes # (Auto)2017-09-09 08:36:00* Test Item Value Reference Range Interpretation Comments Lymphocytes # (Auto) (test code = 88896-0) 1.2 1.0-3.2 [facility] HospitalMonocytes # (Auto)2017-09-09 08:36:00* Test Item Value Reference Range Interpretation Comments Monocytes # (Auto) (test code = 742-7) 0.3 0.2-0.8 [facility] HospitalEosinophils # (Auto)2017-09-09 08:36:00* Test Item Value Reference Range Interpretation Comments Eosinophils # (Auto) (test code = 711-2) 0.1 0.0-0.4 [facility] HospitalBasophils # (Auto)2017-09-09 08:36:00* Test Item Value Reference Range Interpretation Comments Basophils # (Auto) (test code = 704-7) 0.0 0.0-0.1 [facility] HospitalAbsolute Immature Granulocyte (auto 2017-09-09 08:36:00* Test Item Value Reference Range Interpretation Comments Absolute Immature Granulocyte (auto (alexa t code = Absolute Immature Granulocyte (auto) 0.02 0-0.1 [facility] HospitalBlood Ocnjmzn6878-08-74 13:18:00* Test Item Value Reference Range Interpretation Comments Blood Culture (test code = 84292151) NO GROWTH AFTER 5 DAYS, FINAL REPORT [facility] HospitalBlood Vwartfq7222-37-85 13:18:00* Test Item Value Reference Range Interpretation Comments Blood Culture (test code = 05042790) NO GROWTH AFTER 5 DAYS, FINAL REPORT [facility]2018-03-27 13:18:00* Test Item Value Reference Range Interpretation Comments Blood Culture (test code = 59272427) NO GROWTH AFTER 5 DAYS, FINAL REPORT [facility]2018-03-27 13:18:00* Test Item Value Reference Range Interpretation Comments Blood Culture (test code = 61588628) NO GROWTH AFTER 5 DAYS, FINAL REPORT [facility]2018-03-27 13:18:00* Test Item Value Reference Range Interpretation Comments Blood Culture (test code = 18424691) NO GROWTH AFTER 5 DAYS, FINAL REPORT [facility]2018-03-27 13:18:00* Test Item Value Reference Range Interpretation Comments Blood Culture (test code = 91522747) NO GROWTH AFTER 5 DAYS, FINAL REPORT [facility]2018-03-27 13:18:00* Test Item Value Reference Range Interpretation Comments Blood Culture (test code = 24585768) NO GROWTH AFTER 5 DAYS, FINAL REPORT [facility]2018-03-27 13:18:00* Test Item Value Reference Range Interpretation Comments Blood Culture (test code = 58866199) NO GROWTH AFTER 5 DAYS, FINAL REPORT [facility]2018-03-27 13:18:00* Test Item Value Reference Range Interpretation Comments Blood Culture (test code = 41182694) NO GROWTH AFTER 5 DAYS, FINAL REPORT [facility]2018-03-27 13:18:00* Test Item Value Reference Range Interpretation Comments Blood Culture (test code = 22212352) NO GROWTH AFTER 5 DAYS, [facility] Fjsjm4209-13-11 08:26:00* Test Item Value Reference Range Interpretation Comments Sodium Level (test code = 2951-2) 140 136-145 [facility] Fijfn4102-20-20 08:26:00* Test Item Value Reference Range Interpretation Comments Potassium Level (test code = 2823-3) 3.7 3.5-5.1 [facility] HospitalChloride Jfuym7093-27-46 08:26:00* Test Item Value Reference Range Interpretation Comments Chloride Level (test code = 2075-0) 109 98-107 H [facility] HospitalCarbon Dioxide Hlfca0285-75-44 08:26:00* Test Item Value Reference Range Interpretation Comments Carbon Dioxide Level (test code = 2028-9) 26 22-29 [facility] HospitalAnion Ine0337-20-52 08:26:00* Test Item Value Reference Range Interpretation Comments Anion Gap (test code = 64170-7) 8.7 8-16 [facility] HospitalBlood Urea Sbsrtkmo3944-68-97 08:26:00* Test Item Value Reference Range Interpretation Comments Blood Urea Nitrogen (test code = 3094-0) 8 7- [facility] HospitalCreatinine2018-03-26 08:26:00* Test Item Value Reference Range Interpretation Comments Creatinine (test code = 2160-0) 0.78 0.57-1.11 [facility] HospitalBUN/Creatinine Ojlap5457-38-86 08:26:00* Test Item Value Reference Range Interpretation Comments BUN/Creatinine Ratio (test code = 3097-3) 10 6- [facility] HospitalEstimat Glomerular Filtration Rate 2017-08-24 08:26:00* Test Item Value Reference Range Interpretation Comments Estimat Glomerular Filtration Rate (test code = 60239-7) 60- >60 Ranges were taken from the National Kidney Disease Education Program and the [facility] [employer] literature.Reference ranges:60 or greater: Abypwp28-17 ( for 3 consecutive months): Chronic kidney disease 15 or less: Kidney failureMemorial Hermann Cypress HospitalGlucose Xctxp9209-34-04 08:26:00* Test Item Value Reference Range Interpretation Comments Glucose Level (test code = CSG8450) 99 74-118 [facility] HospitalCalcium Hcayz8845-21-86 08:26:00* Test Item Value Reference Range Interpretation Comments Calcium Level (test code = 81018-1) 8.6 8.4-10.2 [facility] HospitalTotal Lqisaabok7796-39-36 08:26:00* Test Item Value Reference Range Interpretation Comments Total Bilirubin (test code = 1975-2) 0.5 0.2-1.2 [facility] HospitalAspartate Amino Transf (AST/SGOT) 2017-08-24 08:26:00* Test Item Value Reference Range Interpretation Comments Aspartate Amino Transf (AST/SGOT) (test code = Aspartate Amino Transf (AST/SGOT)) 19 5-34 [facility] HospitalAlanine Aminotransferase (ALT/SGPT) 2017-08-24 08:26:00* Test Item Value Reference Range Interpretation Comments Alanine Aminotransferase (ALT/SGPT) (test code = 1742-6) 22 0-55 [facility] HospitalTotal Yodomvb5156-36-92 08:26:00* Test Item Value Reference Range Interpretation Comments Total Protein (test code = 2885-2) 6.0 6.5-8.1 L [facility] HospitalAlbumin2018-03-26 08:26:00* Test Item Value Reference Range Interpretation Comments Albumin (test code = 1751-7) 3.3 3.5-5.0 L [facility] HospitalGlobulin2018-03-26 08:26:00* Test Item Value Reference Range Interpretation Comments Globulin (test code = 65998-5) 2.7 2.3-3.5 [facility] HospitalAlbumin/Globulin Bfrzy3671-80-71 08:26:00 * Test Item Value Reference Range Interpretation Comments Albumin/Globulin Ratio (test code = 1759-0) 1.2 0.8-2.0 [facility] HospitalAlkaline Rtpdklqvkqb0727-15-52 08:26:00* Test Item Value Reference Range Interpretation Comments Alkaline Phosphatase (test code = 6768-6) 85 40-150 [facility] HospitalWhite Blood Qtrbb8875-54-31 08:10:00* Test Item Value Reference Range Interpretation Comments White Blood Count (test code = 6690-2) 9.20 4.8-10.8 [facility] HospitalRed Blood Vswmi6065-60-00 08:10:00* Test Item Value Reference Range Interpretation Comments Red Blood Count (test code = 789-8) 4.06 3.6-5.1 [facility] HospitalHemoglobin2018-03-26 08:10:00* Test Item Value Reference Range Interpretation Comments Hemoglobin (test code = 33635-1) 12.0 12.0-16.0 [facility] HospitalHematocrit2018-03-26 08:10:00* Test Item Value Reference Range Interpretation Comments Hematocrit (test code = 4544-3) 36.0 34.2-44.1 [facility] HospitalMean Corpuscular Yurfef9385-05-40 08:10:00* Test Item Value Reference Range Interpretation Comments Mean Corpuscular Volume (test code = 787-2) 88.7 81-99 [facility] HospitalMean Corpuscular Zxlwvqddqi8907-69-18 08:10:00* Test Item Value Reference Range Interpretation Comments Mean Corpuscular Hemoglobin (test code = 785-6) 29.6 28-32 [facility] HospitalMean Corpuscular Hemoglobin Concent 2017-08-24 08:10:00* Test Item Value Reference Range Interpretation Comments Mean Corpuscular Hemoglobin Concent (test code = 786-4) 33.3 31-35 [facility] HospitalRed Cell Distribution Hzqgx9861-89-59 08:10:00* Test Item Value Reference Range Interpretation Comments Red Cell Distribution Width (test code = 92180-0) 13.3 11.7 -14.4 [facility] HospitalPlatelet Rotlt7323-54-13 08:10:00* Test Item Value Reference Range Interpretation Comments Platelet Count (test code = 777-3) 282 140-360 [facility] HospitalNeutrophils (%) (Auto)2017-08-24 08:10:00 * Test Item Value Reference Range Interpretation Comments Neutrophils (%) (Auto) (test code = 77582-9) 74.9 38.7-80.0 [facility] HospitalLymphocytes (%) (Auto)2017-08-24 08:10:00 * Test Item Value Reference Range Interpretation Comments Lymphocytes (%) (Auto) (test code = 736-9) 17.2 18.0-39.1 L [facility] HospitalMonocytes (%) (Auto)2017-08-24 08:10:00* Test Item Value Reference Range Interpretation Comments Monocytes (%) (Auto) (test code = 5905-5) 4.7 4.4-11.3 [facility] HospitalEosinophils (%) (Auto)2017-08-24 08:10:00 * Test Item Value Reference Range Interpretation Comments Eosinophils (%) (Auto) (test code = 713-8) 2.3 0.0-6.0 [facility] HospitalBasophils (%) (Auto)2017-08-24 08:10:00* Test Item Value Reference Range Interpretation Comments Basophils (%) (Auto) (test code = 706-2) 0.4 0.0-1.0 [facility] HospitalIM GRANULOCYTES %2017-08-24 08:10:00* Test Item Value Reference Range Interpretation Comments IM GRANULOCYTES % (test code = IM GRANULOCYTES %) 0.5 0.0- 1.0 [facility] HospitalNeutrophils # (Auto)2017-08-24 08:10:00* Test Item Value Reference Range Interpretation Comments Neutrophils # (Auto) (test code = 751-8) 6.9 2.1-6.9 [facility] HospitalLymphocytes # (Auto)2017-08-24 08:10:00* Test Item Value Reference Range Interpretation Comments Lymphocytes # (Auto) (test code = 13240-9) 1.6 1.0-3.2 [facility] HospitalMonocytes # (Auto)2017-08-24 08:10:00* Test Item Value Reference Range Interpretation Comments Monocytes # (Auto) (test code = 742-7) 0.4 0.2-0.8 [facility] HospitalEosinophils # (Auto)2017-08-24 08:10:00* Test Item Value Reference Range Interpretation Comments Eosinophils # (Auto) (test code = 711-2) 0.2 0.0-0.4 [facility] HospitalBasophils # (Auto)2017-08-24 08:10:00* Test Item Value Reference Range Interpretation Comments Basophils # (Auto) (test code = 704-7) 0.0 0.0-0.1 [facility] HospitalAbsolute Immature Granulocyte (auto 2017-08-24 08:10:00* Test Item Value Reference Range Interpretation Comments Absolute Immature Granulocyte (auto (alexa t code = Absolute Immature Granulocyte (auto) 0.05 0-0.1 [facility] HospitalBlood Qsmeoim1585-93-66 13:18:00* Test Item Value Reference Range Interpretation Comments Blood Culture (test code = 13587396) NO GROWTH AFTER 72 HOURS [facility] HospitalUrine WOQ8536-01-60 12:10:00* Test Item Value Reference Range Interpretation Comments Urine WBC (test code = 5821-4) NONE 0-5 [facility] HospitalUrine PLG9591-28-99 12:10:00* Test Item Value Reference Range Interpretation Comments Urine RBC (test code = 28072-6) NONE 0-5 [facility] HospitalUrine Gmzsrhhm3555-98-74 12:10:00* Test Item Value Reference Range Interpretation Comments Urine Bacteria (test code = 20947-9) NONE NONE [facility] HospitalUrine Epithelial Kuxww5324-16-25 12:10:00 * Test Item Value Reference Range Interpretation Comments Urine Epithelial Cells (test code = 69981-4) MODERATE NONE [facility] HospitalUrine Quvqs3167-98-36 12:03:00* Test Item Value Reference Range Interpretation Comments Urine Color (test code = 5778-6) YELLOW YELLOW [facility] HospitalUrine Obbbjom1285-04-48 12:03:00* Test Item Value Reference Range Interpretation Comments Urine Clarity (test code = 09035-6) CLEAR CLEAR [facility] HospitalUrine Specific Qnvynzl3802-43-70 12:03:00 * Test Item Value Reference Range Interpretation Comments Urine Specific [place] (test code = 5811-5) 1.015 1.010-1.02 5 [facility] HospitalUrine yL5940-95-77 12:03:00* Test Item Value Reference Range Interpretation Comments Urine pH (test code = 64946-2) 6 5-7 [facility] HospitalUrine Leukocyte Noquhdxv5810-85-94 12:03:00* Test Item Value Reference Range Interpretation Comments Urine Leukocyte Esterase (test code = 5799-2) NEGATIVE NEGATIVE [facility] HospitalUrine Ywmlece4711-93-67 12:03:00* Test Item Value Reference Range Interpretation Comments Urine Nitrite (test code = 78900-7) NEGATIVE NEGATIVE [facility] HospitalUrine Igzrczr6834-76-61 12:03:00* Test Item Value Reference Range Interpretation Comments Urine Protein (test code = 5804-0) NEGATIVE NEGATIVE [facility] HospitalUrine Glucose (UA)2017-08-23 12:03:00* Test Item Value Reference Range Interpretation Comments Urine Glucose (UA) (test code = 2349-9) NEGATIVE NEGATIVE [facility] HospitalUrine Unrjzye8756-56-02 12:03:00* Test Item Value Reference Range Interpretation Comments Urine Ketones (test code = 22641-6) NEGATIVE NEGATIVE [facility] HospitalUrine Tikijkhzqbna3945-27-29 12:03:00* Test Item Value Reference Range Interpretation Comments Urine Urobilinogen (test code = 07584-9) 0.2 0.2-1 [facility] HospitalUrine Rgogbkaht9098-64-90 12:03:00* Test Item Value Reference Range Interpretation Comments Urine Bilirubin (test code = 1978-6) NEGATIVE NEGATIVE [facility] HospitalUrine Lpocs7253-96-20 12:03:00* Test Item Value Reference Range Interpretation Comments Urine Blood (test code = 09075-6) NEGATIVE NEGATIVE [facility] HospitalAmylase Qzvxc6109-92-62 07:49:00* Test Item Value Reference Range Interpretation Comments Amylase Level (test code = 1798-8) 51 25-125 [facility] HospitalLipase2018-03-24 07:49:00* Test Item Value Reference Range Interpretation Comments Lipase (test code = 3040-3) 22 8-78 [facility] HospitalAmylase Bgrip2542-08-33 07:49:00* Test Item Value Reference Range Interpretation Comments Amylase Level (test code = 1798-8) 51 25-125 [facility] HospitalAmylase Iwqvp7321-37-84 07:49:00* Test Item Value Reference Range Interpretation Comments Amylase Level (test code = 1798-8) 51 25-125 [facility] Xdvpddvmz5671-91-94 08:06:00* Test Item Value Reference Range Interpretation Comments Direct Bilirubin (test code = 80868-5) 0.1 0.0-0.5 [facility] Dnimscgbg0257-39-85 08:06:00* Test Item Value Reference Range Interpretation Comments Direct Bilirubin (test code = 79606-2) 0.1 0.0-0.5 [facility] Kgbtnmiar9459-18-73 08:06:00* Test Item Value Reference Range Interpretation Comments Direct Bilirubin (test code = 95129-9) 0.1 0.0-0.5 [facility] Ieziafesy4155-65-01 08:06:00* Test Item Value Reference Range Interpretation Comments Direct Bilirubin (test code = 19016-7) 0.1 0.0-0.5 [facility] Jnivaervy8530-77-93 08:06:00* Test Item Value Reference Range Interpretation Comments Direct Bilirubin (test code = 49557-3) 0.1 0.0-0.5 [facility] Frjhkdjrj1049-71-40 08:06:00* Test Item Value Reference Range Interpretation Comments Direct Bilirubin (test code = 05678-5) 0.1 0.0-0.5 [facility] Ywlpgwlwm7852-70-79 08:06:00* Test Item Value Reference Range Interpretation Comments Direct Bilirubin (test code = 28029-9) 0.1 0.0-0.5 [facility] Kypribuco0628-57-13 08:06:00* Test Item Value Reference Range Interpretation Comments Direct Bilirubin (test code = 70816-1) 0.1 0.0-0.5 [facility] Wxphivieb5210-00-97 08:06:00* Test Item Value Reference Range Interpretation Comments Direct Bilirubin (test code = 60663-5) 0.1 0.0-0.5 [facility] HospitalDirect Bxjpwtfub8456-93-18 08:06:00* Test Item Value Reference Range Interpretation Comments Direct Bilirubin (test code = 91107-0) 0.1 0.0-0.5 [facility] HospitalDirect Rhxcvalsy6158-17-99 08:06:00* Test Item Value Reference Range Interpretation Comments Direct Bilirubin (test code = 42879-5) 0.1 0.0-0.5 [facility] HospitalTriglycerides Senmm2767-45-88 15:56:00* Test Item Value Reference Range Interpretation Comments Triglycerides Level (test code = 2571-8) 113 0-149 [facility] HospitalCholesterol Jfxgh8571-05-14 15:56:00* Test Item Value Reference Range Interpretation Comments Cholesterol Level (test code = 2093-3) 227 0-199 H Less than 200 mg/dL Low Zxnl405 - 239 mg/dL Borderline Hnub539 m g/dl and greater High Risk [facility] HospitalLDL Sngggkqokue7346-81-88 15:56:00* Test Item Value Reference Range Interpretation Comments LDL Cholesterol (test code = 2089-1) 141 60-130 H [facility] HospitalHDL Hiojtahwoyy2128-85-91 15:56:00* Test Item Value Reference Range Interpretation Comments HDL Cholesterol (test code = 2085-9) 63 40-60 H [facility] HospitalCholesterol/HDL Odesz5729-08-39 15:56:00 * Test Item Value Reference Range Interpretation Comments Cholesterol/HDL Ratio (test code = 9830-1) 3.6 3.0-3.6 [facility] HospitalTriglycerides Tkghl5669-92-07 15:56:00* Test Item Value Reference Range Interpretation Comments Triglycerides Level (test code = 2571-8) 113 0-149 [facility] HospitalCholesterol Pfpux3740-53-79 15:56:00* Test Item Value Reference Range Interpretation Comments Cholesterol Level (test code = 2093-3) 227 0-199 H Less than 200 mg/dL Low Hsvf810 - 239 mg/dL Borderline Fjzv805 m g/dl and greater High Risk [facility] HospitalLDL Tbhktmioilv8726-40-50 15:56:00* Test Item Value Reference Range Interpretation Comments LDL Cholesterol (test code = 2089-1) 141 60-130 H [facility] Dslqhyqeswa9575-09-37 15:56:00* Test Item Value Reference Range Interpretation Comments HDL Cholesterol (test code = 2085-9) 63 40-60 H [facility] HospitalCholesterol/HDL Wjwzp2652-60-92 15:56:00 * Test Item Value Reference Range Interpretation Comments Cholesterol/HDL Ratio (test code = 9830-1) 3.6 3.0-3.6 [facility] HospitalTriglycerides Zdyyf7552-14-07 15:56:00* Test Item Value Reference Range Interpretation Comments Triglycerides Level (test code = 2571-8) 113 0-149 [facility] HospitalCholesterol Riilu6196-02-59 15:56:00* Test Item Value Reference Range Interpretation Comments Cholesterol Level (test code = 2093-3) 227 0-199 H Less than 200 mg/dL Low Pyep637 - 239 mg/dL Borderline Gqyw756 m g/dl and greater High Risk [facility] HospitalLDL Lexzreqsfro5737-48-74 15:56:00* Test Item Value Reference Range Interpretation Comments LDL Cholesterol (test code = 2089-1) 141 60-130 H [facility] Gofpvegfixt1178-06-67 15:56:00* Test Item Value Reference Range Interpretation Comments HDL Cholesterol (test code = 2085-9) 63 40-60 H [facility] HospitalCholesterol/HDL Ikiye3149-18-51 15:56:00 * Test Item Value Reference Range Interpretation Comments Cholesterol/HDL Ratio (test code = 9830-1) 3.6 3.0-3.6 [facility] HospitalTriglycerides Efpmg0322-59-89 15:56:00* Test Item Value Reference Range Interpretation Comments Triglycerides Level (test code = 2571-8) 113 0-149 [facility] HospitalCholesterol Pzfht4183-40-71 15:56:00* Test Item Value Reference Range Interpretation Comments Cholesterol Level (test code = 2093-3) 227 0-199 H Less than 200 mg/dL Low Gjjr642 - 239 mg/dL Borderline Shxp187 m g/dl and greater High Risk [facility] HospitalLDL Vftonhcmryk2924-06-26 15:56:00* Test Item Value Reference Range Interpretation Comments LDL Cholesterol (test code = 2089-1) 141 60-130 H [facility] Gtjhagyrdro5733-35-34 15:56:00* Test Item Value Reference Range Interpretation Comments HDL Cholesterol (test code = 2085-9) 63 40-60 H [facility] HospitalCholesterol/HDL Ftfds8277-64-33 15:56:00 * Test Item Value Reference Range Interpretation Comments Cholesterol/HDL Ratio (test code = 9830-1) 3.6 3.0-3.6 [facility] HospitalTriglycerides Eifnr2398-02-78 15:56:00* Test Item Value Reference Range Interpretation Comments Triglycerides Level (test code = 2571-8) 113 0-149 [facility] HospitalCholesterol Gkfud8776-45-43 15:56:00* Test Item Value Reference Range Interpretation Comments Cholesterol Level (test code = 2093-3) 227 0-199 H Less than 200 mg/dL Low Zbja433 - 239 mg/dL Borderline Mibz911 m g/dl and greater High Risk [facility] HospitalLDL Vbzwlvhdacx3042-45-86 15:56:00* Test Item Value Reference Range Interpretation Comments LDL Cholesterol (test code = 2089-1) 141 60-130 H [facility] Bgetzmtgyeg9128-75-04 15:56:00* Test Item Value Reference Range Interpretation Comments HDL Cholesterol (test code = 2085-9) 63 40-60 H [facility] HospitalCholesterol/HDL Cntzt0497-13-50 15:56:00 * Test Item Value Reference Range Interpretation Comments Cholesterol/HDL Ratio (test code = 9830-1) 3.6 3.0-3.6 [facility] HospitalTriglycerides Edtsi9595-02-81 15:56:00* Test Item Value Reference Range Interpretation Comments Triglycerides Level (test code = 2571-8) 113 0-149 [facility] HospitalCholesterol Epfhy7135-93-55 15:56:00* Test Item Value Reference Range Interpretation Comments Cholesterol Level (test code = 2093-3) 227 0-199 H Less than 200 mg/dL Low Fqcj640 - 239 mg/dL Borderline Gjli447 m g/dl and greater High Risk [facility] HospitalLDL Cxgmdmoknen2596-10-51 15:56:00* Test Item Value Reference Range Interpretation Comments LDL Cholesterol (test code = 2089-1) 141 60-130 H [facility] Kbypxdbqbyg0126-21-21 15:56:00* Test Item Value Reference Range Interpretation Comments HDL Cholesterol (test code = 2085-9) 63 40-60 H [facility] HospitalCholesterol/HDL Yfnya7129-59-03 15:56:00 * Test Item Value Reference Range Interpretation Comments Cholesterol/HDL Ratio (test code = 9830-1) 3.6 3.0-3.6 [facility] HospitalTriglycerides Rbjca4709-25-13 15:56:00* Test Item Value Reference Range Interpretation Comments Triglycerides Level (test code = 2571-8) 113 0-149 [facility] HospitalCholesterol Yrwdg6530-29-49 15:56:00* Test Item Value Reference Range Interpretation Comments Cholesterol Level (test code = 2093-3) 227 0-199 H Less than 200 mg/dL Low Gnft434 - 239 mg/dL Borderline Olhx347 m g/dl and greater High Risk [facility] HospitalLDL Rjzfszvpfzk2436-40-36 15:56:00* Test Item Value Reference Range Interpretation Comments LDL Cholesterol (test code = 2089-1) 141 60-130 [facility] Jkjjumiyzan5888-24-03 15:56:00* Test Item Value Reference Range Interpretation Comments HDL Cholesterol (test code = 2085-9) 63 40-60 H [facility] HospitalCholesterol/HDL Tuqxy2230-20-32 15:56:00 * Test Item Value Reference Range Interpretation Comments Cholesterol/HDL Ratio (test code = 9830-1) 3.6 3.0-3.6 [facility] HospitalTriglycerides Whxbc3208-72-16 15:56:00* Test Item Value Reference Range Interpretation Comments Triglycerides Level (test code = 2571-8) 113 0-149 [facility] HospitalCholesterol Lemih9044-67-66 15:56:00* Test Item Value Reference Range Interpretation Comments Cholesterol Level (test code = 2093-3) 227 0-199 H Less than 200 mg/dL Low Vnqs942 - 239 mg/dL Borderline Mjzi985 m g/dl and greater High Risk [facility] HospitalLDL Ddnuixhjrln8307-93-54 15:56:00* Test Item Value Reference Range Interpretation Comments LDL Cholesterol (test code = 2089-1) 141 60-130 H [facility] Wmxujepzxxl4375-15-67 15:56:00* Test Item Value Reference Range Interpretation Comments HDL Cholesterol (test code = 2085-9) 63 40-60 H [facility] HospitalCholesterol/HDL Dzsnl6418-78-55 15:56:00 * Test Item Value Reference Range Interpretation Comments Cholesterol/HDL Ratio (test code = 9830-1) 3.6 3.0-3.6 [facility] HospitalTriglycerides Axpai2541-29-05 15:56:00* Test Item Value Reference Range Interpretation Comments Triglycerides Level (test code = 2571-8) 113 0-149 [facility] HospitalCholesterol Umexj2413-33-78 15:56:00* Test Item Value Reference Range Interpretation Comments Cholesterol Level (test code = 2093-3) 227 0-199 H Less than 200 mg/dL Low Hhof988 - 239 mg/dL Borderline Vdia185 m g/dl and greater High Risk [facility] HospitalLDL Vxqqwdvvycc6277-97-26 15:56:00* Test Item Value Reference Range Interpretation Comments LDL Cholesterol (test code = 2089-1) 141 60-130 H [facility] Ufbodnygbkc8554-52-00 15:56:00* Test Item Value Reference Range Interpretation Comments HDL Cholesterol (test code = 2085-9) 63 40-60 H [facility] HospitalCholesterol/HDL Atzog6855-40-28 15:56:00 * Test Item Value Reference Range Interpretation Comments Cholesterol/HDL Ratio (test code = 9830-1) 3.6 3.0-3.6 [facility] HospitalTriglycerides Uawzw6840-59-71 15:56:00* Test Item Value Reference Range Interpretation Comments Triglycerides Level (test code = 2571-8) 113 0-149 [facility] HospitalCholesterol Ctarb0728-24-55 15:56:00* Test Item Value Reference Range Interpretation Comments Cholesterol Level (test code = 2093-3) 227 0-199 H Less than 200 mg/dL Low Qpfe553 - 239 mg/dL Borderline Uzqe816 m g/dl and greater High Risk [facility] [facility]LDL Grufmtshgbu4941-31-30 15:56:00* Test Item Value Reference Range Interpretation Comments LDL Cholesterol (test code = 2089-1) 141 60-130 H [facility]HDL Aiyrtvasqfj8014-08-28 15:56:00* Test Item Value Reference Range Interpretation Comments HDL Cholesterol (test code = 2085-9) 63 40-60 H [facility] HospitalCholesterol/HDL Erxro2315-25-32 15:56:00 * Test Item Value Reference Range Interpretation Comments Cholesterol/HDL Ratio (test code = 9830-1) 3.6 3.0-3.6 [facility] HospitalTriglycerides Knewy6780-30-92 15:56:00* Test Item Value Reference Range Interpretation Comments Triglycerides Level (test code = 2571-8) 113 0-149 [facility]Cholesterol Khpxo1111-44-56 15:56:00* Test Item Value Reference Range Interpretation Comments Cholesterol Level (test code = 2093-3) 227 0-199 H Less than 200 mg/dL Low Zulm474 - 239 mg/dL Borderline Mubu795 m g/dl and greater High Risk [facility]LDL Txebmnoxifj2843-53-23 15:56:00* Test Item Value Reference Range Interpretation Comments LDL Cholesterol (test code = 2089-1) 141 60-130 H [facility]HDL Gpwfufzuapa5033-80-92 15:56:00* Test Item Value Reference Range Interpretation Comments HDL Cholesterol (test code = 2085-9) 63 40-60 H [facility]Cholesterol/HDL Hxyeh4169-75-18 15:56:00 * Test Item Value Reference Range Interpretation Comments Cholesterol/HDL Ratio (test code = 9830-1) 3.6 3.0-3.6 [facility] HospitalHemoglobin A1c Hvgxcwp0695-33-10 15:51:00 * Test Item Value Reference Range Interpretation Comments Hemoglobin A1c Percent (test code = Hemoglobin A1c Percent) 4.9 4.0-7.0 [facility] HospitalHemoglobin A1c Udvhlgr4840-78-72 15:51:00 * Test Item Value Reference Range Interpretation Comments Hemoglobin A1c Percent (test code = Hemoglobin A1c Percent) 4.9 4.0-7.0 [facility] HospitalHemoglobin A1c Ydtftio1468-26-01 15:51:00 * Test Item Value Reference Range Interpretation Comments Hemoglobin A1c Percent (test code = Hemoglobin A1c Percent) 4.9 4.0-7.0 [facility] HospitalHemoglobin A1c Vwfzkjm7666-26-44 15:51:00 * Test Item Value Reference Range Interpretation Comments Hemoglobin A1c Percent (test code = Hemoglobin A1c Percent) 4.9 4.0-7.0 [facility] HospitalHemoglobin A1c Ubemcly2426-92-92 15:51:00 * Test Item Value Reference Range Interpretation Comments Hemoglobin A1c Percent (test code = Hemoglobin A1c Percent) 4.9 4.0-7.0 [facility] HospitalHemoglobin A1c Zqctgra3116-81-80 15:51:00 * Test Item Value Reference Range Interpretation Comments Hemoglobin A1c Percent (test code = Hemoglobin A1c Percent) 4.9 4.0-7.0 [facility] HospitalHemoglobin A1c Jzgzxdj0160-55-28 15:51:00 * Test Item Value Reference Range Interpretation Comments Hemoglobin A1c Percent (test code = Hemoglobin A1c Percent) 4.9 4.0-7.0 [facility] HospitalHemoglobin A1c Dyxhpdm2830-74-33 15:51:00 * Test Item Value Reference Range Interpretation Comments Hemoglobin A1c Percent (test code = Hemoglobin A1c Percent) 4.9 4.0-7.0 [facility] HospitalHemoglobin A1c Ozyhlsf4970-29-15 15:51:00 * Test Item Value Reference Range Interpretation Comments Hemoglobin A1c Percent (test code = Hemoglobin A1c Percent) 4.9 4.0-7.0 [facility] HospitalHemoglobin A1c Idradqe5767-10-03 15:51:00 * Test Item Value Reference Range Interpretation Comments Hemoglobin A1c Percent (test code = Hemoglobin A1c Percent) 4.9 4.0-7.0 [facility] HospitalHemoglobin A1c Ihdsoan2206-40-09 15:51:00 * Test Item Value Reference Range Interpretation Comments Hemoglobin A1c Percent (test code = Hemoglobin A1c Percent) 4.9 4.0-7.0 [facility] HospitalUrine SYZ3980-26-95 09:46:00* Test Item Value Reference Range Interpretation Comments Urine WBC (test code = 5821-4) 0-5 0-5 [facility] HospitalUrine [id number] 09:46:00* Test Item Value Reference Range Interpretation Comments Urine RBC (test code = 46320-3) NONE 0-5 [facility] HospitalUrine Mdaadxlz8682-70-25 09:46:00* Test Item Value Reference Range Interpretation Comments Urine Bacteria (test code = 48941-2) NONE NONE [facility] HospitalUrine Epithelial Qcume1308-58-90 09:46:00 * Test Item Value Reference Range Interpretation Comments Urine Epithelial Cells (test code = 71277-3) RARE NONE [facility] HospitalUrine Transitional Epithelial Cells 2017-08-05 09:46:00* Test Item Value Reference Range Interpretation Comments Urine Transitional Epithelial Cells (test code = 8249-5) RARE NONE H [facility] HospitalUrine Transitional Epithelial Cells 2017-08-05 09:46:00* Test Item Value Reference Range Interpretation Comments Urine Transitional Epithelial Cells (test code = 8249-5) RARE NONE H [facility] HospitalUrine Transitional Epithelial Cells 2017-08-05 09:46:00* Test Item Value Reference Range Interpretation Comments Urine Transitional Epithelial Cells (test code = 8249-5) [facility] 2017-08-05 09:46:00* Test Item Value Reference Range Interpretation Comments Urine Transitional Epithelial Cells (test code = 8249-5) RARE NONE [facility] Epit[facility] Cells 2017-08-05 09:46:00* Test Item Value Reference Range Interpretation Comments Urine Transitional Epithelial Cells (test code = 8249-5) RARE NONE [facility] Epit[facility] Cells 2017-08-05 09:46:00* Test Item Value Reference Range Interpretation Comments Urine Transitional Epithelial Cells (test code = 8249-5) RARE NONE [facility] Transitional Epithelial Cells 2017-08-05 09:46:00* Test Item Value Reference Range Interpretation Comments Urine Transitional Epithelial Cells (test code = 8249-5) RARE NONE [facility] Ep[facility] 2017-08-05 09:46:00* Test Item Value Reference Range Interpretation Comments Urine Transitional Epithelial Cells (test code = 8249-5) RARE NONE [facility] Trans[facility] Epithelial Cells 2017-08-05 09:46:00* Test Item Value Reference Range Interpretation Comments Urine Transitional Epithelial Cells (test code = 8249-5) RARE NONE [facility] Trans[facility] Epithelial Cells 2017-08-05 09:46:00* Test Item Value Reference Range Interpretation Comments Urine Transitional Epithelial Cells (test code = 8249-5) RARE NONE [facility] [place] [place] Eoemo6963-70-85 09:44:00* Test Item Value Reference Range Interpretation Comments Sodium Level (test code = 2951-2) 140 136-145 [facility] HospitalPotassium Ihqgs8669-99-48 09:44:00* Test Item Value Reference Range Interpretation Comments Potassium Level (test code = 2823-3) 3.5 3.5-5.1 [facility] HospitalChloride Evvto6874-79-85 09:44:00* Test Item Value Reference Range Interpretation Comments Chloride Level (test code = 2075-0) 110 98-107 H [facility] HospitalCarbon Dioxide Yzlvz2116-47-28 09:44:00* Test Item Value Reference Range Interpretation Comments Carbon Dioxide Level (test code = 2028-9) 20 22-29 L [facility] HospitalAnion Psq6790-16-65 09:44:00* Test Item Value Reference Range Interpretation Comments Anion Gap (test code = 26967-8) 13.5 8-16 [facility] HospitalBlood Urea Opjtptaj6787-52-72 09:44:00* Test Item Value Reference Range Interpretation Comments Blood Urea Nitrogen (test code = 3094-0) 12 7-26 [facility] HospitalCreatinine2018-03-07 09:44:00* Test Item Value Reference Range Interpretation Comments Creatinine (test code = 2160-0) 0.89 0.57-1.11 [facility] HospitalBUN/Creatinine Ujrdq6092-65-29 09:44:00* Test Item Value Reference Range Interpretation Comments BUN/Creatinine Ratio (test code = 3097-3) 13 6-25 [facility] HospitalEstimat Glomerular Filtration Rate 2017-08-05 09:44:00* Test Item Value Reference Range Interpretation Comments Estimat Glomerular Filtration Rate (test code = 70694-1) 60- >60 Ranges were taken from the National Kidney Disease Education Program and the [facility] literature.Reference ranges:60 or greater: Ersccx43-78 ( for 3 consecutive months): Chronic kidney disease 15 or less: Kidney failureMemorial Hermann Cypress HospitalGlucose Rqulj4786-14-92 09:44:00* Test Item Value Reference Range Interpretation Comments Glucose Level (test code = OFS1628) 86 74-118 [facility] HospitalCalcium Xldkn2320-61-69 09:44:00* Test Item Value Reference Range Interpretation Comments Calcium Level (test code = 28001-5) 8.5 8.4-10.2 [facility] HospitalUrine Igapz0997-35-06 09:31:00* Test Item Value Reference Range Interpretation Comments Urine Color (test code = 5778-6) YELLOW YELLOW [facility] HospitalUrine Ndvyfuo3394-51-70 09:31:00* Test Item Value Reference Range Interpretation Comments Urine Clarity (test code = 41124-4) CLEAR CLEAR [facility] HospitalUrine Specific Wqgydpx3126-84-11 09:31:00 * Test Item Value Reference Range Interpretation Comments Urine Specific [place] (test code = 5811-5) 1.015 1.010-1.02 5 [facility] HospitalUrine rA9396-92-65 09:31:00* Test Item Value Reference Range Interpretation Comments Urine pH (test code = 34304-2) 6 5-7 [facility] HospitalUrine Leukocyte Supgkqed6274-29-40 09:31:00* Test Item Value Reference Range Interpretation Comments Urine Leukocyte Esterase (test code = 5799-2) NEGATIVE NEGATIVE [facility] HospitalUrine Odjeduh1187-42-14 09:31:00* Test Item Value Reference Range Interpretation Comments Urine Nitrite (test code = 75094-0) NEGATIVE NEGATIVE [facility] HospitalUrine Nkhwcas3543-04-36 09:31:00* Test Item Value Reference Range Interpretation Comments Urine Protein (test code = 5804-0) NEGATIVE NEGATIVE [facility] HospitalUrine Glucose (UA)2017-08-05 09:31:00* Test Item Value Reference Range Interpretation Comments Urine Glucose (UA) (test code = 2349-9) NEGATIVE NEGATIVE [facility] HospitalUrine Iezuhuj6713-54-88 09:31:00* Test Item Value Reference Range Interpretation Comments Urine Ketones (test code = 24193-5) NEGATIVE NEGATIVE [facility] HospitalUrine Bpxgmsakvbvy1603-99-97 09:31:00* Test Item Value Reference Range Interpretation Comments Urine Urobilinogen (test code = 17013-7) 0.2 0.2-1 [facility] HospitalUrine Yixolxaro4575-55-68 09:31:00* Test Item Value Reference Range Interpretation Comments Urine Bilirubin (test code = 1978-6) NEGATIVE NEGATIVE [facility] HospitalUrine Onadh0658-03-98 09:31:00* Test Item Value Reference Range Interpretation Comments Urine Blood (test code = 83937-5) NEGATIVE NEGATIVE [facility] HospitalWhite Blood Klxgw4351-05-92 09:26:00* Test Item Value Reference Range Interpretation Comments White Blood Count (test code = 6690-2) 5.52 4.8-10.8 [facility] HospitalRed Blood Wwiil1722-99-23 09:26:00* Test Item Value Reference Range Interpretation Comments Red Blood Count (test code = 789-8) 4.29 3.6-5.1 [facility] HospitalHemoglobin2018-03-07 09:26:00* Test Item Value Reference Range Interpretation Comments Hemoglobin (test code = 20528-5) 12.8 12.0-16.0 [facility] HospitalHematocrit2018-03-07 09:26:00* Test Item Value Reference Range Interpretation Comments Hematocrit (test code = 4544-3) 37.8 34.2-44.1 [facility] HospitalMean Corpuscular Gemysy1259-56-26 09:26:00* Test Item Value Reference Range Interpretation Comments Mean Corpuscular Volume (test code = 787-2) 88.1 81-99 [facility] HospitalMean Corpuscular Hpyccxhyar7904-49-19 09:26:00* Test Item Value Reference Range Interpretation Comments Mean Corpuscular Hemoglobin (test code = 785-6) 29.8 28-32 [facility] HospitalMean Corpuscular Hemoglobin Concent 2017-08-05 09:26:00* Test Item Value Reference Range Interpretation Comments Mean Corpuscular Hemoglobin Concent (test code = 786-4) 33.9 31-35 [facility] HospitalRed Cell Distribution Gbtfr0545-02-96 09:26:00* Test Item Value Reference Range Interpretation Comments Red Cell Distribution Width (test code = 11103-3) 13.3 11.7 -14.4 [facility] HospitalPlatelet Efitc2571-21-95 09:26:00* Test Item Value Reference Range Interpretation Comments Platelet Count (test code = 777-3) 249 140-360 [facility] HospitalNeutrophils (%) (Auto)2017-08-05 09:26:00 * Test Item Value Reference Range Interpretation Comments Neutrophils (%) (Auto) (test code = 76375-3) 61.6 38.7-80.0 [facility] HospitalLymphocytes (%) (Auto)2017-08-05 09:26:00 * Test Item Value Reference Range Interpretation Comments Lymphocytes (%) (Auto) (test code = 736-9) 27.7 18.0-39.1 [facility] HospitalMonocytes (%) (Auto)2017-08-05 09:26:00* Test Item Value Reference Range Interpretation Comments Monocytes (%) (Auto) (test code = 5905-5) 7.4 4.4-11.3 [facility] HospitalEosinophils (%) (Auto)2017-08-05 09:26:00 * Test Item Value Reference Range Interpretation Comments Eosinophils (%) (Auto) (test code = 713-8) 2.4 0.0-6.0 [facility] HospitalBasophils (%) (Auto)2017-08-05 09:26:00* Test Item Value Reference Range Interpretation Comments Basophils (%) (Auto) (test code = 706-2) 0.5 0.0-1.0 [facility] HospitalIM GRANULOCYTES %2017-08-05 09:26:00* Test Item Value Reference Range Interpretation Comments IM GRANULOCYTES % (test code = IM GRANULOCYTES %) 0.4 0.0- 1.0 [facility] HospitalNeutrophils # (Auto)2017-08-05 09:26:00* Test Item Value Reference Range Interpretation Comments Neutrophils # (Auto) (test code = 751-8) 3.4 2.1-6.9 [facility] HospitalLymphocytes # (Auto)2017-08-05 09:26:00* Test Item Value Reference Range Interpretation Comments Lymphocytes # (Auto) (test code = 15249-9) 1.5 1.0-3.2 [facility] HospitalMonocytes # (Auto)2017-08-05 09:26:00* Test Item Value Reference Range Interpretation Comments Monocytes # (Auto) (test code = 742-7) 0.4 0.2-0.8 [facility] HospitalEosinophils # (Auto)2017-08-05 09:26:00* Test Item Value Reference Range Interpretation Comments Eosinophils # (Auto) (test code = 711-2) 0.1 0.0-0.4 [facility] HospitalBasophils # (Auto)2017-08-05 09:26:00* Test Item Value Reference Range Interpretation Comments Basophils # (Auto) (test code = 704-7) 0.0 0.0-0.1 [facility] HospitalAbsolute Immature Granulocyte (auto 2017-08-05 09:26:00* Test Item Value Reference Range Interpretation Comments Absolute Immature Granulocyte (auto (alexa t code = Absolute Immature Granulocyte (auto) 0.02 0-0.1 [facility] HospitalUrine DDA8113-16-96 09:53:00* Test Item Value Reference Range Interpretation Comments Urine WBC (test code = 5821-4) 6-10 0-5 H [facility] HospitalUrine SKI4406-67-77 09:53:00* Test Item Value Reference Range Interpretation Comments Urine RBC (test code = 65651-1) 0-5 0-5 [facility] HospitalUrine Heyhjfse0295-39-77 09:53:00* Test Item Value Reference Range Interpretation Comments Urine Bacteria (test code = 34138-6) MANY NONE H [facility] HospitalUrine Epithelial Jvype2072-38-42 09:53:00 * Test Item Value Reference Range Interpretation Comments Urine Epithelial Cells (test code = 41859-9) FEW NONE [facility] HospitalUrine Transitional Epithelial Cells 2017-07-30 09:53:00* Test Item Value Reference Range Interpretation Comments Urine Transitional Epithelial Cells (test code = 8249-5) FEW NONE H [facility] HospitalUrine Ihguv8048-77-85 09:45:00* Test Item Value Reference Range Interpretation Comments Urine Color (test code = 5778-6) YELLOW YELLOW [facility] HospitalUrine Ikxuums7863-76-19 09:45:00* Test Item Value Reference Range Interpretation Comments Urine Clarity (test code = 26619-8) CLOUDY CLEAR [facility] Bykoibd5056-05-09 09:45:00 * Test Item Value Reference Range Interpretation Comments Urine Specific [place] (test code = 5811-5) 1.020 1.010-1.02 5 [facility] HospitalUrine lV4011-54-25 09:45:00* Test Item Value Reference Range Interpretation Comments Urine pH (test code = 29428-7) 6 5-7 [facility] Leukocyte Tzvlmdar3670-15-88 09:45:00* Test Item Value Reference Range Interpretation Comments Urine Leukocyte Esterase (test code = 5799-2) NEGATIVE NEGATIVE [facility] Hscmpef7400-49-53 09:45:00* Test Item Value Reference Range Interpretation Comments Urine Nitrite (test code = 50796-9) POSITIVE NEGATIVE H [facility] Biyclmz9114-31-67 09:45:00* Test Item Value Reference Range Interpretation Comments Urine Protein (test code = 5804-0) NEGATIVE NEGATIVE [facility] Glucose (UA)2017-07-30 09:45:00* Test Item Value Reference Range Interpretation Comments Urine Glucose (UA) (test code = 2349-9) NEGATIVE NEGATIVE [facility] Wpdgdyi1534-94-63 09:45:00* Test Item Value Reference Range Interpretation Comments Urine Ketones (test code = 31695-1) NEGATIVE NEGATIVE [facility] Kjupozubctjr0008-07-07 09:45:00* Test Item Value Reference Range Interpretation Comments Urine Urobilinogen (test code = 68947-8) 0.2 0.2-1 [facility] HospitalUrine Iqtgneysd1047-04-24 09:45:00* Test Item Value Reference Range Interpretation Comments Urine Bilirubin (test code = 1978-6) NEGATIVE NEGATIVE [facility] Zjaex3506-00-22 09:45:00* Test Item Value Reference Range Interpretation Comments Urine Blood (test code = 51325-3) NEGATIVE NEGATIVE [facility] HospitalWhite Blood Avywr0930-14-28 09:44:00* Test Item Value Reference Range Interpretation Comments White Blood Count (test code = 6690-2) 6.60 4.8-10.8 [facility] HospitalRed Blood Voxbg0230-53-27 09:44:00* Test Item Value Reference Range Interpretation Comments Red Blood Count (test code = 789-8) 4.19 3.6-5.1 [facility] HospitalHemoglobin2018-03-01 09:44:00* Test Item Value Reference Range Interpretation Comments Hemoglobin (test code = 57571-7) 12.6 12.0-16.0 [facility] HospitalHematocrit2018-03-01 09:44:00* Test Item Value Reference Range Interpretation Comments Hematocrit (test code = 4544-3) 36.8 34.2-44.1 [facility] HospitalMean Corpuscular Xdinhh8558-44-34 09:44:00* Test Item Value Reference Range Interpretation Comments Mean Corpuscular Volume (test code = 787-2) 87.8 81-99 [facility] HospitalMean Corpuscular Punknphgku0373-72-74 09:44:00* Test Item Value Reference Range Interpretation Comments Mean Corpuscular Hemoglobin (test code = 785-6) 30.1 28-32 [facility] HospitalMean Corpuscular Hemoglobin Concent 2017-07-30 09:44:00* Test Item Value Reference Range Interpretation Comments Mean Corpuscular Hemoglobin Concent (test code = 786-4) 34.2 31-35 [facility] HospitalRed Cell Distribution Uofen7373-62-43 09:44:00* Test Item Value Reference Range Interpretation Comments Red Cell Distribution Width (test code = 17493-5) 13.6 11.7 -14.4 [facility] HospitalPlatelet Qtdke3503-08-06 09:44:00* Test Item Value Reference Range Interpretation Comments Platelet Count (test code = 777-3) 272 140-360 [facility] HospitalNeutrophils (%) (Auto)2017-07-30 09:44:00 * Test Item Value Reference Range Interpretation Comments Neutrophils (%) (Auto) (test code = 19294-9) 72.8 38.7-80.0 [facility] HospitalLymphocytes (%) (Auto)2017-07-30 09:44:00 * Test Item Value Reference Range Interpretation Comments Lymphocytes (%) (Auto) (test code = 736-9) 20.0 18.0-39.1 [facility] HospitalMonocytes (%) (Auto)2017-07-30 09:44:00* Test Item Value Reference Range Interpretation Comments Monocytes (%) (Auto) (test code = 5905-5) 4.1 4.4-11.3 L [facility] HospitalEosinophils (%) (Auto)2017-07-30 09:44:00 * Test Item Value Reference Range Interpretation Comments Eosinophils (%) (Auto) (test code = 713-8) 2.3 0.0-6.0 [facility] HospitalBasophils (%) (Auto)2017-07-30 09:44:00* Test Item Value Reference Range Interpretation Comments Basophils (%) (Auto) (test code = 706-2) 0.6 0.0-1.0 [facility] HospitalIM GRANULOCYTES %2017-07-30 09:44:00* Test Item Value Reference Range Interpretation Comments IM GRANULOCYTES % (test code = IM GRANULOCYTES %) 0.2 0.0- 1.0 [facility] HospitalNeutrophils # (Auto)2017-07-30 09:44:00* Test Item Value Reference Range Interpretation Comments Neutrophils # (Auto) (test code = 751-8) 4.8 2.1-6.9 [facility] HospitalLymphocytes # (Auto)2017-07-30 09:44:00* Test Item Value Reference Range Interpretation Comments Lymphocytes # (Auto) (test code = 87081-9) 1.3 1.0-3.2 [facility] HospitalMonocytes # (Auto)2017-07-30 09:44:00* Test Item Value Reference Range Interpretation Comments Monocytes # (Auto) (test code = 742-7) 0.3 0.2-0.8 [facility] HospitalEosinophils # (Auto)2017-07-30 09:44:00* Test Item Value Reference Range Interpretation Comments Eosinophils # (Auto) (test code = 711-2) 0.2 0.0-0.4 [facility] HospitalBasophils # (Auto)2017-07-30 09:44:00* Test Item Value Reference Range Interpretation Comments Basophils # (Auto) (test code = 704-7) 0.0 0.0-0.1 [facility] HospitalAbsolute Immature Granulocyte (auto 2017-07-30 09:44:00* Test Item Value Reference Range Interpretation Comments Absolute Immature Granulocyte (auto (alexa t code = Absolute Immature Granulocyte (auto) 0.01 0-0.1 [facility] Ygyhu4157-89-78 09:43:00* Test Item Value Reference Range Interpretation Comments Sodium Level (test code = 2951-2) 141 136-145 [facility] HospitalPotassium Egrka0004-86-94 09:43:00* Test Item Value Reference Range Interpretation Comments Potassium Level (test code = 2823-3) 3.4 3.5-5.1 L [facility] HospitalChloride Xktmz4624-56-39 09:43:00* Test Item Value Reference Range Interpretation Comments Chloride Level (test code = 2075-0) 108 98-107 H [facility] HospitalCarbon Dioxide Bmmll4859-77-19 09:43:00* Test Item Value Reference Range Interpretation Comments Carbon Dioxide Level (test code = 2028-9) 22 22-29 [facility] HospitalAnion Jin8906-10-02 09:43:00* Test Item Value Reference Range Interpretation Comments Anion Gap (test code = 96685-1) 14.4 8-16 [facility] HospitalBlood Urea Eybmxkck9481-49-92 09:43:00* Test Item Value Reference Range Interpretation Comments Blood Urea Nitrogen (test code = 3094-0) 8 7-26 [facility] HospitalCreatinine2018-03-01 09:43:00* Test Item Value Reference Range Interpretation Comments Creatinine (test code = 2160-0) 0.84 0.57-1.11 [facility] HospitalBUN/Creatinine Gsxeq7673-25-08 09:43:00* Test Item Value Reference Range Interpretation Comments BUN/Creatinine Ratio (test code = 3097-3) 10 6-25 [facility] HospitalEstimat Glomerular Filtration Rate 2017-07-30 09:43:00* Test Item Value Reference Range Interpretation Comments Estimat Glomerular Filtration Rate (test code = 26882-7) 60- >60 Ranges were taken from the National Kidney Disease Education Program and the [employer] [facility] [employer] literature.Reference ranges:60 or greater: Mjxhva20-07 ( for 3 consecutive months): Chronic kidney disease 15 or less: Kidney failureMemorial Hermann Cypress HospitalGlucose Whvun8247-54-06 09:43:00* Test Item Value Reference Range Interpretation Comments Glucose Level (test code = ZWP1478) 172 74-118 H [facility] HospitalCalcium Eorsx3805-32-41 09:43:00* Test Item Value Reference Range Interpretation Comments Calcium Level (test code = 13991-3) 8.5 8.4-10.2 [facility] Rsvvgvhcn6117-27-45 09:43:00* Test Item Value Reference Range Interpretation Comments Total Bilirubin (test code = 1975-2) 0.3 0.2-1.2 [facility] HospitalAspartate Amino Transf (AST/SGOT) 2017-07-30 09:43:00* Test Item Value Reference Range Interpretation Comments Aspartate Amino Transf (AST/SGOT) (test code = Aspartate Amino Transf (AST/SGOT)) 12 5-34 [facility] HospitalAlanine Aminotransferase (ALT/SGPT) 2017-07-30 09:43:00* Test Item Value Reference Range Interpretation Comments Alanine Aminotransferase (ALT/SGPT) (test code = 1742-6) 16 0-55 [facility] Enftfcc9646-40-92 09:43:00* Test Item Value Reference Range Interpretation Comments Total Protein (test code = 2885-2) 6.4 6.5-8.1 L [facility] HospitalAlbumin2018-03-01 09:43:00* Test Item Value Reference Range Interpretation Comments Albumin (test code = 1751-7) 3.4 3.5-5.0 L [facility] HospitalGlobulin2018-03-01 09:43:00* Test Item Value Reference Range Interpretation Comments Globulin (test code = 16816-5) 3.0 2.3-3.5 [facility] HospitalAlbumin/Globulin Dmhxv0467-60-44 09:43:00 * Test Item Value Reference Range Interpretation Comments Albumin/Globulin Ratio (test code = 1759-0) 1.1 0.8-2.0 [facility] HospitalAlkaline Uatybbtdjfq8534-81-79 09:43:00* Test Item Value Reference Range Interpretation Comments Alkaline Phosphatase (test code = 6768-6) 86 40-150 [facility]Total Nkahlicqh1570-70-87 09:43:00* Test Item Value Reference Range Interpretation Comments Total Bilirubin (test code = 1975-2) 0.3 0.2-1.2 [facility] HospitalAspartate Amino Transf (AST/SGOT) 2017-07-30 09:43:00* Test Item Value Reference Range Interpretation Comments Aspartate Amino Transf (AST/SGOT) (test code = Aspartate Amino Transf (AST/SGOT)) 12 5-34 [facility] HospitalAlanine Aminotransferase (ALT/SGPT) 2017-07-30 09:43:00* Test Item Value Reference Range Interpretation Comments Alanine Aminotransferase (ALT/SGPT) (test code = 1742-6) 16 0-55 [facility] Fcoawok7120-37-55 09:43:00* Test Item Value Reference Range Interpretation Comments Total Protein (test code = 2885-2) 6.4 6.5-8.1 L [facility] HospitalAlbumin2018-03-01 09:43:00* Test Item Value Reference Range Interpretation Comments Albumin (test code = 1751-7) 3.4 3.5-5.0 L [facility] HospitalGlobulin2018-03-01 09:43:00* Test Item Value Reference Range Interpretation Comments Globulin (test code = 66820-3) 3.0 2.3-3.5 [facility] HospitalAlbumin/Globulin Gboaj3293-97-25 09:43:00 * Test Item Value Reference Range Interpretation Comments Albumin/Globulin Ratio (test code = 1759-0) 1.1 0.8-2.0 [facility] HospitalAlkaline Cgzikodicfe1954-60-56 09:43:00* Test Item Value Reference Range Interpretation Comments Alkaline Phosphatase (test code = 6768-6) 86 40-150 [facility] Qidcmnj8374-07-70 07:15:00* Test Item Value Reference Range Interpretation Comments Urine Culture (test code = 630-4) Organism: KLEBSIELLA PNEUMONIAE [facility] Mvtqrgt2988-09-56 07:15:00* Test Item Value Reference Range Interpretation Comments Urine Culture (test code = 630-4) Organism: KLEBSIELLA PNEUMONIAE [facility] Slfwogf7743-17-69 07:15:00* Test Item Value Reference Range Interpretation Comments Urine Culture (test code = 630-4) Organism: KLEBSIELLA PNEUMONIAE [facility] Rrvmsnm8712-32-28 07:15:00* Test Item Value Reference Range Interpretation Comments Urine Culture (test code = 630-4) Organism: KLEBSIELLA PNEUMONIAE [facility] Cqbmphp9648-13-38 07:15:00* Test Item Value Reference Range Interpretation Comments Urine Culture (test code = 630-4) Organism: KLEBSIELLA PNEUMONIAE [facility] Akaqnqz9228-82-11 07:15:00* Test Item Value Reference Range Interpretation Comments Urine Culture (test code = 630-4) Organism: KLEBSIELLA PNEUMONIAE [facility] Lngbvpb0578-68-75 07:15:00* Test Item Value Reference Range Interpretation Comments Urine Culture (test code = 630-4) Organism: KLEBSIELLA PNEUMONIAE [facility] Ymmzsyj3353-30-64 07:15:00* Test Item Value Reference Range Interpretation Comments Urine Culture (test code = 630-4) Organism: KLEBSIELLA PNEUMONIAE [facility] Apqimwu5048-56-98 07:15:00* Test Item Value Reference Range Interpretation Comments Urine Culture (test code = 630-4) Organism: KLEBSIELLA PNEUMONIAE [facility] Korvfws6721-43-55 07:15:00* Test Item Value Reference Range Interpretation Comments Urine Culture (test code = 630-4) Organism: KLEBSIELLA PNEUMONIAE [facility] HospitalUrine Ntvztni3898-01-07 07:15:00* Test Item Value Reference Range Interpretation Comments Urine Culture (test code = 630-4) Organism: KLE[facility]LL[facility]ONIAE [facility] Ydgyr5715-32-78 09:45:00* Test Item Value Reference Range Interpretation Comments Sodium Level (test code = 2951-2) 140 136-145 [facility] HospitalPotassium Jdfmj5295-05-55 09:45:00* Test Item Value Reference Range Interpretation Comments Potassium Level (test code = 2823-3) 3.9 3.5-5.1 [facility] HospitalChloride Nppmj4771-39-29 09:45:00* Test Item Value Reference Range Interpretation Comments Chloride Level (test code = 2075-0) 110 98-107 H [facility] HospitalCarbon Dioxide Ignbu6241-90-16 09:45:00* Test Item Value Reference Range Interpretation Comments Carbon Dioxide Level (test code = 2028-9) 22 22-29 [facility] HospitalAnion Ryj8273-94-20 09:45:00* Test Item Value Reference Range Interpretation Comments Anion Gap (test code = 42905-2) 11.9 8-16 [facility] HospitalBlood Urea Oujrxcwu8123-59-07 09:45:00* Test Item Value Reference Range Interpretation Comments Blood Urea Nitrogen (test code = 3094-0) 12 7-26 [facility] HospitalCreatinine2018-02-02 09:45:00* Test Item Value Reference Range Interpretation Comments Creatinine (test code = 2160-0) 0.96 0.57-1.11 [facility] HospitalBUN/Creatinine Cohqn5058-05-36 09:45:00* Test Item Value Reference Range Interpretation Comments BUN/Creatinine Ratio (test code = 3097-3) 13 6-25 [facility] HospitalEstimat Glomerular Filtration Rate 2017-07-03 09:45:00* Test Item Value Reference Range Interpretation Comments Estimat Glomerular Filtration Rate (test code = 85293-5) 60- >60 Ranges were taken from the National Kidney Disease Education Program and the [facility] literature.Reference ranges:60 or greater: Kyvclp69-96 ( for 3 consecutive months): Chronic kidney disease 15 or less: Kidney failureMemorial Hermann Cypress HospitalGlucose Taxvg8463-02-65 09:45:00* Test Item Value Reference Range Interpretation Comments Glucose Level (test code = JOO8547) 95 74-118 [facility] HospitalCalcium Kwyru8966-42-12 09:45:00* Test Item Value Reference Range Interpretation Comments Calcium Level (test code = 14859-6) 8.8 8.4-10.2 [facility]Total Rbqemivxx3775-68-92 09:45:00* Test Item Value Reference Range Interpretation Comments Total Bilirubin (test code = 1975-2) 0.3 0.2-1.2 [facility] HospitalAspartate Amino Transf (AST/SGOT) 2017-07-03 09:45:00* Test Item Value Reference Range Interpretation Comments Aspartate Amino Transf (AST/SGOT) (test code = Aspartate Amino Transf (AST/SGOT)) 14 5-34 [facility] HospitalAlanine Aminotransferase (ALT/SGPT) 2017-07-03 09:45:00* Test Item Value Reference Range Interpretation Comments Alanine Aminotransferase (ALT/SGPT) (test code = 1742-6) 15 0-55 [facility] Naarscf8323-95-95 09:45:00* Test Item Value Reference Range Interpretation Comments Total Protein (test code = 2885-2) 6.7 6.5-8.1 [facility] HospitalAlbumin2018-02-02 09:45:00* Test Item Value Reference Range Interpretation Comments Albumin (test code = 1751-7) 3.8 3.5-5.0 [facility] HospitalGlobulin2018-02-02 09:45:00* Test Item Value Reference Range Interpretation Comments Globulin (test code = 44746-0) 2.9 2.3-3.5 [facility] HospitalAlbumin/Globulin Ichkc2273-76-53 09:45:00 * Test Item Value Reference Range Interpretation Comments Albumin/Globulin Ratio (test code = 1759-0) 1.3 0.8-2.0 [facility] HospitalAlkaline Wpmkmbhdaha2839-47-31 09:45:00* Test Item Value Reference Range Interpretation Comments Alkaline Phosphatase (test code = 6768-6) 81 40-150 [facility] HospitalUrine VKO5022-02-39 09:20:00* Test Item Value Reference Range Interpretation Comments Urine WBC (test code = 5821-4) 0-5 0-5 [facility] HospitalUrine LNT0251-09-25 09:20:00* Test Item Value Reference Range Interpretation Comments Urine RBC (test code = 61663-9) NONE 0-5 [facility] HospitalUrine Ekmmujct4858-71-87 09:20:00* Test Item Value Reference Range Interpretation Comments Urine Bacteria (test code = 71830-2) MODERATE NONE H [facility] HospitalUrine Epithelial Svxvn5196-04-20 09:20:00 * Test Item Value Reference Range Interpretation Comments Urine Epithelial Cells (test code = 05194-2) FEW NONE [facility] HospitalWhite Blood Judnl7119-36-15 09:19:00* Test Item Value Reference Range Interpretation Comments White Blood Count (test code = 6690-2) 4.89 4.8-10.8 [facility] HospitalRed Blood Yjgkq1042-77-89 09:19:00* Test Item Value Reference Range Interpretation Comments Red Blood Count (test code = 789-8) 4.32 3.6-5.1 [facility] HospitalHemoglobin2018-02-02 09:19:00* Test Item Value Reference Range Interpretation Comments Hemoglobin (test code = 29286-7) 12.8 12.0-16.0 [facility] HospitalHematocrit2018-02-02 09:19:00* Test Item Value Reference Range Interpretation Comments Hematocrit (test code = 4544-3) 38.5 34.2-44.1 [facility] HospitalMean Corpuscular Qoswhz1178-79-74 09:19:00* Test Item Value Reference Range Interpretation Comments Mean Corpuscular Volume (test code = 787-2) 89.1 81-99 [facility] HospitalMean Corpuscular Wogtdspbwp5941-35-09 09:19:00* Test Item Value Reference Range Interpretation Comments Mean Corpuscular Hemoglobin (test code = 785-6) 29.6 28-32 [facility] HospitalMean Corpuscular Hemoglobin Concent 2017-07-03 09:19:00* Test Item Value Reference Range Interpretation Comments Mean Corpuscular Hemoglobin Concent (test code = 786-4) 33.2 31-35 [facility] HospitalRed Cell Distribution Subco6992-04-40 09:19:00* Test Item Value Reference Range Interpretation Comments Red Cell Distribution Width (test code = 67020-4) 13.6 11.7 -14.4 [facility] HospitalPlatelet Uiqgg1480-55-07 09:19:00* Test Item Value Reference Range Interpretation Comments Platelet Count (test code = 777-3) 269 140-360 [facility] HospitalNeutrophils (%) (Auto)2017-07-03 09:19:00 * Test Item Value Reference Range Interpretation Comments Neutrophils (%) (Auto) (test code = 10840-2) 66.2 38.7-80.0 [facility] HospitalLymphocytes (%) (Auto)2017-07-03 09:19:00 * Test Item Value Reference Range Interpretation Comments Lymphocytes (%) (Auto) (test code = 736-9) 24.7 18.0-39.1 [facility] HospitalMonocytes (%) (Auto)2017-07-03 09:19:00* Test Item Value Reference Range Interpretation Comments Monocytes (%) (Auto) (test code = 5905-5) 6.3 4.4-11.3 [facility] HospitalEosinophils (%) (Auto)2017-07-03 09:19:00 * Test Item Value Reference Range Interpretation Comments Eosinophils (%) (Auto) (test code = 713-8) 2.0 0.0-6.0 [facility] HospitalBasophils (%) (Auto)2017-07-03 09:19:00* Test Item Value Reference Range Interpretation Comments Basophils (%) (Auto) (test code = 706-2) 0.6 0.0-1.0 [facility] HospitalIM GRANULOCYTES %2017-07-03 09:19:00* Test Item Value Reference Range Interpretation Comments IM GRANULOCYTES % (test code = IM GRANULOCYTES %) 0.2 0.0- 1.0 [facility] HospitalNeutrophils # (Auto)2017-07-03 09:19:00* Test Item Value Reference Range Interpretation Comments Neutrophils # (Auto) (test code = 751-8) 3.2 2.1-6.9 [facility] HospitalLymphocytes # (Auto)2017-07-03 09:19:00* Test Item Value Reference Range Interpretation Comments Lymphocytes # (Auto) (test code = 03301-3) 1.2 1.0-3.2 [facility] HospitalMonocytes # (Auto)2017-07-03 09:19:00* Test Item Value Reference Range Interpretation Comments Monocytes # (Auto) (test code = 742-7) 0.3 0.2-0.8 [facility] HospitalEosinophils # (Auto)2017-07-03 09:19:00* Test Item Value Reference Range Interpretation Comments Eosinophils # (Auto) (test code = 711-2) 0.1 0.0-0.4 [facility] HospitalBasophils # (Auto)2017-07-03 09:19:00* Test Item Value Reference Range Interpretation Comments Basophils # (Auto) (test code = 704-7) 0.0 0.0-0.1 [facility] HospitalAbsolute Immature Granulocyte (auto 2017-07-03 09:19:00* Test Item Value Reference Range Interpretation Comments Absolute Immature Granulocyte (auto (alexa t code = Absolute Immature Granulocyte (auto) 0.01 0-0.1 [facility] HospitalUrine Vvmft2292-96-84 08:58:00* Test Item Value Reference Range Interpretation Comments Urine Color (test code = 5778-6) YELLOW YELLOW [facility] HospitalUrine Dxmjslx5533-81-98 08:58:00* Test Item Value Reference Range Interpretation Comments Urine Clarity (test code = 11598-7) HAZY CLEAR [facility] Specific Yfknkhr8531-87-45 08:58:00 * Test Item Value Reference Range Interpretation Comments Urine Specific [place] (test code = 5811-5) 1.025 1.010-1.02 5 [facility] HospitalUrine aC3630-86-93 08:58:00* Test Item Value Reference Range Interpretation Comments Urine pH (test code = 52609-3) 5 5-7 [facility] HospitalU[facility] Leukocyte Lprmvvgr3343-53-62 08:58:00* Test Item Value Reference Range Interpretation Comments Urine Leukocyte Esterase (test code = 5799-2) TRACE NEGATIVE H [facility] Acnnnca1435-62-36 08:58:00* Test Item Value Reference Range Interpretation Comments Urine Nitrite (test code = 63844-2) NEGATIVE NEGATIVE [facility] Aphdyvx4256-13-17 08:58:00* Test Item Value Reference Range Interpretation Comments Urine Protein (test code = 5804-0) NEGATIVE NEGATIVE [facility] Glucose (UA)2017-07-03 08:58:00* Test Item Value Reference Range Interpretation Comments Urine Glucose (UA) (test code = 2349-9) NEGATIVE NEGATIVE [facility] Cpgnwhk8330-01-35 08:58:00* Test Item Value Reference Range Interpretation Comments Urine Ketones (test code = 72425-2) NEGATIVE NEGATIVE [facility] Pseeyxwcrssm7253-73-95 08:58:00* Test Item Value Reference Range Interpretation Comments Urine Urobilinogen (test code = 48506-9) 0.2 0.2-1 [facility] Ibxqyvplg0538-26-19 08:58:00* Test Item Value Reference Range Interpretation Comments Urine Bilirubin (test code = 1978-6) 1+ NEGATIVE H [facility] Sjrnb1928-48-43 08:58:00* Test Item Value Reference Range Interpretation Comments Urine Blood (test code = 97663-6) NEGATIVE NEGATIVE [facility] HospitalUrine Mhnl5058-28-30 08:58:00* Test Item Value Reference Range Interpretation Comments Urine Test (test code = 2106-3) NEGATIVE NEGATIVE [facility] HospitalUrine Knyr8944-73-34 08:58:00* Test Item Value Reference Range Interpretation Comments Urine Test (test code = 2106-3) NEGATIVE NEGATIVE [facility] HospitalUrine Cosb3162-03-94 08:58:00* Test Item Value Reference Range Interpretation Comments Urine Test (test code = 2106-3) NEGATIVE NEGATIVE [facility] HospitalUrine Fndw8262-57-59 08:58:00* Test Item Value Reference Range Interpretation Comments Urine Test (test code = 2106-3) NEGATIVE NEGATIVE [facility] HospitalUrine Sgvq6181-60-43 08:58:00* Test Item Value Reference Range Interpretation Comments Urine Test (test code = 2106-3) NEGATIVE NEGATIVE [facility] HospitalUrine Uyyl6710-45-05 08:58:00* Test Item Value Reference Range Interpretation Comments Urine Test (test code = 2106-3) NEGATIVE NEGATIVE [facility] HospitalU[facility] Kwuz2185-32-26 08:58:00* Test Item Value Reference Range Interpretation Comments Urine Test (test code = 2106-3) NEGATIVE NEGATIVE [facility] HospitalU[facility] Uiie2349-85-78 08:58:00* Test Item Value Reference Range Interpretation Comments Urine Test (test code = 2106-3) NEGATIVE NEGATIVE [facility] HospitalU[facility] Utgc5658-92-39 08:58:00* Test Item Value Reference Range Interpretation Comments Urine Test (test code = 2106-3) NEGATIVE NEGATIVE [facility] HospitalCT [facility]LV[facility] [place] [address] Patient Name: ANGELA ESPINOSA MR #: [id number] : 1975 Age/Sex: 41/F Req #: [id number] Adm Physician: Ordered by: NATALIA MORE RESEARCH CLERK Report #: [id number] Location: ER Room/Bed: Procedure: [id number] CT/CT ABDOMEN/PELVIS W Exam Date: 10/26/17 Exam Time: 1040 REPORT STAT US: Signed EXAM: CT Abdomen and Pelvis WITH contrast INDICATION: COMPARISON: Abdominal CT 08/23/2017 and 11/24/2016 TECHNIQUE: Abdomen a nd pelvis were scanned utilizing a multidetector helical scanner from the lung base to the pubic symphysis after administration of IV contrast. Coronal and sagittal reformations were obtained. Routine protocol was performed. Scan was performed when during portal venous phase. IV CONTRAST: 100 mL of Iso oscar-370 ORAL CONTRAST: Water COMPLICATIONS: None RA DIATION DOSE: Total DLP: 837 mGy*cm Estimated effective dose: (DLP x 0.015 x size factor) mSv CTDIvol has been reviewed. It is below the li mits set by the Radiation Protocol Committee (RPC). FINDINGS: LINES and TUBES: None. LOWER THORAX: Unremarkable HEPATOBILIARY: No fo luna hepatic lesions. No biliary ductal dilation. GALLBLADDER: Cholecystect bill. SPLEEN: No splenomegaly. PANCREAS: No focal masses or ductal dil atation. ADRENALS: No adrenal nodules KIDNEYS/URETERS: Scarring in left superior renal pole. Kidneys enhance symmetrically. No hydronephrosis . There are scattered too small to characterize hypodensites, likely benign. No stones. GI TRACT: No abnormal distention, wall thickening, or evidence o f bowel obstruction. Right lower quadrant fluid without definite visualizatio n of the appendix. A normal diameter structure is favored to represent the johnnie endix (coronal image 38, series 2 image 56) although the tip is not visualized . The thin hyperattenuating appearance is similar to CT 08/20/2017, as seen on series 2 image 60. A new area of central fat attenuation compared to CT 018 in the right lower quadrant in an area of redundant sigmoid colon (coronal image 49) suggests an episode of epiploic appendagitis with resolution of i nflammation given the lack of adjacent stranding. The fluid seen in the right lower quadrant appears relatively distant to this segment of colon. PELVIC ORGANS/BLADDER: Hysterectomy. Ovaries appear relatively symmetric in size. LYMPH NODES: No lymphadenopathy. VESSELS: Unremarkable. PERITONEUM / RETROPERITONEUM: No free air or fluid. BONES: Unremarkable. SOFT TI SSUES: Small fat-containing supraumbilical ventral hernia. IMPR ESSION: Nonspecific fluid along the right paracolic gutter of uncertain etiol ogy. A tubular structure in the right lower quadrant is favored to represent a normal appearing appendix although not visualized in its entirety. As such, a tip appendicitis cannot be completely excluded. Consider short term follow up CT in 24 hours to evaluate for interval change. Signed by: DR. Bharathi Griggs MD on 10/26/2017 11:40 AM Dictated By: BHARATHI GRIGGS MD [facility] Signed By: BHARATHI GRIGGS MD on 10/26/17 1140 Transcribed By: LULU on 0 10/26/17 1140 COPY TO: NATALIA MORE NP ABDOMEN-1VIEW ([facility]) [place] [address] Patient Name: ANGELA ESPINOSA MR #: [id number] D OB: 1975 Age/Sex: 41/F Req #: [id number] Adm Physic domo: Ordered by: COLLETTE MARTINEZ MD Report #: [id number] Location: ER Room/Bed: Procedure: [id number] DX/ABDOMEN-1VIEW ([facility]) Exam Date: 09/09/17 Exam Time: [address] ATUS: Signed PROCEDURE: X-RAY ABDOMEN - [facility] COMPARISON: Patients [facility], DX, ABDOMEN-1VIEW ([facility]), 08/23/2017, 13:24. INDICATIONS: ABDOMINAL PAIN FINDINGS: There are no dilated loops of bowel to suggest obstruction. Clips in the right upper quadrant from a previous inna cystectomy. There are no masses or abnormal calcifications. There is no evid ence of free air. No acute osseous abnormalities are present. CONCL USION: No acute abdominal abnormality. Mago Matson Dictated by: Lisa Sales D.O. on 09/09/2017 at 9:06 Electronica lly approved by: Lisa Sales D.O. on 09/09/2017 at 9:06 Di ctated By: LISA SALES DO 5 COPY TO: AKOSUA MARTINEZ MD CT ABDOMEN [place] [address] Patient Name: ANGELA ESPINOSA MR #: [id number] : 1975 Age/Sex: 41/F Req #: [id number] Adm Physician: GLENN TILLEY MD Ordered by: GLENN TILLEY MD Report #: [id number] Location: MED/SURG Room/Bed: [facility] Procedure: [id number] CT/ CT ABDOMEN W Exam Date: 08/23/17 Exam Time: 2026 REPORT STATUS: Signed EXAM: CT ABDOMEN W DATE: 08/23/2017 5:21 PM Time stamp on Exam: 2030 INDICATION: Worsening right upper quadrant pain COMPARISON: CT of the abdomen and pelvis August 20, 2017 TECHNIQUE: The abdom en was scanned using a multidetector helical scanner. Coronal and sagittal ref ormations were obtained. Routine protocol performed. IV Contrast: 100 cc Isovu e-370 Oral Contrast: Water CTDIvol has been reviewed. It is below the limits set by the Radiation Protocol Committee (RPC). FINDINGS: LOWER THORAX: Bibasilar atelectasis and trace bilateral pleural effusions. Interval develop ment of septal thickening. LIVER: No masses BILIARY: Cholecystectomy with out ductal dilation. SPLEEN: No masses PANCREAS: No masses ADRENALS : No nodules KIDNEYS: Symmetric enhancement. No hydronephrosis. Punctate nonob structing stones bilaterally better seen on prior noncontrast CT. Simple cyst measuring 1.2 cm left interpolar region. GI TRACT: No distention, wall th ickening or evidence of obstruction in the partially visualized bowel. Partial ly visualized normal appendix. VESSELS: Unremarkable PERITONEUM/RETROPERI TONEUM: No free air or fluid LYMPH NODES: No lymphadenopathy SOFT TISSUES : Unremarkable BONES: No suspicious bone lesions. IMPRESSION: 1. No acute findings in the CT of the abdomen. 2. Interval mild fluid overload a s manifested by new interstitial edema and trace pleural effusions. Inés d by: Dr. Nila Lawler M.D. on 08/23/2017 9:03 PM Dictated By: NILA LAWLER MD 02 Transc ribed By: LULU on 08/23/172102 COPY TO: GLENN TILLEY MD ABDOMEN-[facility] ([place] [address] Patient Name: ANGELA ESPINOSA MR #: [id number] : 1975 Age/Sex: 41/F Req #: [id number] Adm Physician: GLENN TILLEY MD Ordered by: MARINE MUÑOZ MD Report #: [id number] Location: MED/SURG Room/Bed: [facility] Procedure: [id number] DX/A BDOMEN-1VIEW ([facility]) Exam Date: 08/23/17 Exam Time: REPORT STATUS: Signed EXAM: ABDOMEN-1VIEW ([facility]) DATE: 08/23/2017 12:17 PM INDICATION: COMPARISON: None FINDING S: Cholecystectomy clips. Nonspecific bowel gas pattern. Stool burden not ex cessive. No acute osseous findings. IMPRESSION: No acute findings. Signed by: Dr. Yovani Pope MD on 08/23/2017 1:37 PM Dictated By: YOVANI POPE MD 36 Transc ribed By: LULU on 08/23/17 133 COPY TO: MARINE MUÑOZ MD CT ABDOMEN/PELVIS [place] [address] Patient Name: ANGELA ESPINOSA MR #: [id number] : 1975 Age/Sex: 41/F Req #: [id number] Adm Physician: GLENN TILLEY MD Ordered by: YOLETTE VILLARREAL MD Report #: [id number] Location: [facility] Room/Bed: [place] [address] Procedure: CT/CT ABDOMEN/PELVIS W Exam Date: 08/20/17 Exam T misti: 1030 REPORT STATUS: Signed PROCEDURE: CT ABDOMEN AND PELVIS WITH C ONTRAST TECHNIQUE: The abdomen and pelvis were scanned utilizing a mult idetector helical scanner from the diaphragm to the lesser trochanter after t he IV administration of 100 cc of Isovue 370 no oral contrast was administ ered. Coronal and sagittal multiplanar reformations were obtained. COMP ARISON: CT abdomen and pelvis 08/05/2017. INDICATIONS: RIGHT SIDED PAIN FINDINGS: LOWER THORAX: Normal. HEPATOBILIARY: No focal hepatic lesi ons. No biliary ductal dilatation. Cholecystectomy. SPLEEN: No splenomegal y. PANCREAS: No focal masses or ductal dilatation. ADRENALS: No adrenal nodu les. KIDNEYS/URETERS: No hydronephrosis, stones, or solid mass lesions. Sim ple cyst of the left kidney. PELVIC ORGANS/BLADDER: Hysterectomy. Normal ovari es. Normal urinary bladder. PERITONEUM / RETROPERITONEUM: No free air o r fluid. LYMPH NODES: No lymphadenopathy. VESSELS: Retroaortic left renal ve in. GI TRACT: No distention or wall thickening. Normal appendix. Moderate amount of retained feces limits intraluminal evaluation of the colon. B ONES AND SOFT TISSUES: Unremarkable. IMPRESSION: No acute abnormalit y of the abdomen and pelvis. Dictated by: Jarek Najera M.D. on 08/20/2017 at 11:37 Electronically approved by: Jarek Najera M.D. on 08/20/2017 at 11:37 Dictated By: JAREK NAJERA MD 36 Transcribed By: FAVIAN on 08/20/177 COPY T O: YOLETTE VILLARREAL MD CT ABDOMEN/PELVIS [place] [address] Patient Name: ANGELA ESPINOSA MR #: [id number] : 1975 Age/Sex: 41/F Req #: [id number] Adm Physician: Ordered by: MADELINE GILBERT MD Report #: [id number] Location: ER Room/Bed: Procedure: [id number] CT/CT ABDOMEN/PELVIS WO Exam Date: 08/05/17 Exam Time: 907 REPORT STA TUS: Signed PROCEDURE: CT ABDOMEN AND PELVIS WITHOUT CONTRAST TECHNIQUE : The abdomen and pelvis were scanned utilizing a multidetector helical sc louie from the diaphragm to the lesser trochanter. No IV contrast was adminis tered as per physician request. Coronal and sagittal multiplanar reformation s were obtained. COMPARISON: CT abdomen and pelvis 07/30/2017. INDICATIONS : KIDNEY STONES RIGHT SIDE FINDINGS: ABSENCE OF INTRAVENOUS CONTRAST DE CREASES SENSITIVITY FOR DETECTION OF FOCAL LESIONS AND VASCULAR PATHOLOGY. LOWER THORAX: Left lung base atelectasis. HEPATOBILIARY: No focal hepa tic lesions. No biliary ductal dilatation. Cholecystectomy. SPLEEN: No spl enomegaly. PANCREAS: No focal masses or ductal dilatation. ADRENALS: No adrenal nodules. KIDNEYS/URETERS: No hydronephrosis, stones, or solid mass les ions. Multiple cysts are present in the left kidney. Punctate calculus is present in the inferior pole of the right kidney. Two separate calculi are pr esent in the inferior pole of the left kidney, the largest measuring 3.0 mm. PELVIC ORGANS/BLADDER: Hysterectomy. Bilateral small ovarian cysts. Normal urinary bladder. PERITONEUM / RETROPERITONEUM: No free air or fluid. LYM PH NODES: No lymphadenopathy. VESSELS: Retroaortic left renal vein. GI T RACT: No distention or wall thickening. The appendix is normal. Moderate amou nt of retained feces limits intraluminal evaluation of the colon. BONES AND SOFT TISSUES: Normal. IMPRESSION: Bilateral nonobstructive neph rolithiasis. Dictated by: Jarek Najera M.D. on 08/05/2017 at 10:01 Electronically approved by: Jarek Najera M.D. on 08/05/2017 at 10:01 Dictated By: JAREK NAJERA MD 1001 COPY TO: MAYLIN GILBERT RD, MD CT ABDOMEN/PELVIS WO [place] [address] Patient Name: ANGELA ESPINOSA MR #: [id number] : 1975 Age/Sex: 41/F Req #: [id number] Adm Physician: Ordered by: MADELINE MCKEON MD Report #: [id number] Location: ER Room/Bed: Procedure: [id number] CT/CT ABDOMEN/PELVIS WO Exam Date: 07/30/17 Exam Time: 0940 REPORT STA TUS: Signed PROCEDURE: CT ABDOMEN AND PELVIS WITHOUT CONTRAST COMPARISON : [facility], CT, CT ABDOMEN/PELVIS WO, 07/03/2017, 9:15. IND ICATIONS: Left-sided back pain with history of renal stones. TECHNIQUE: Stone protocol Volumetric CT abdomen and pelvis. No intravenous or enteric co ntrast. Multiplanar reformatted images. DLP: 817.87 FINDINGS: Bibasil ar subsegmental atelectasis and interstitial scar. Lung bases otherwise clear . No pleural effusions. Normal heart size. Liver: Normal Gallbladder: Ch olecystectomy. No bile duct dilation. Pancreas: Normal Spleen: Normal Adrenal glands: Normal Urinary bladder: Normal Uterus and adnexa: Hysterecto my Kidneys: Right: 2 mm stone at the right mid segment. Normal ureter an d collecting system. Left: 2 mm to 3 mm stones at the left inferior and mid segments. Questionable tiny (less than 2 mm) high attenuation debris at the left ureterovesicular junction (image 165, series 3) without ureteral obst ruction. 1 cm exophytic nodule with attenuation suggesting a simple cyst. Bowel: Normal caliber. Normal appendix. Peritoneum: Normal Vasculatur e: Normal caliber. Left retroaortic renal vein. Lymph nodes: Normal. [place]: Intact. Bone islands at L5. Soft tissues: 1.6 cm fat containing supraum bilical hernia (image 80, series 400); 1 cm right to midline abdominal hernia . Abdominis rectus diastases. Otherwise, normal. CONCLUSION: Bilate ral nonobstructive nephrolithiasis. There is questionable calcified debris me asuring less than 2 mm in the distal left ureter which may reflect stone debr is. No ureteral obstruction. Dictated by: Kirby Britton M.D. on 06/2017 at 10:08 Electronically approved by: Kirby Britton M.D. on 07/30/2017 at 10:08 Dictated By: KIRBY BRITTON MD Electronic ally Signed By: KIRBY BRITTON MD on 07/30/17 1008 Transcribed By: FAVIAN on 06/18 1008 COPY TO: MADELINE MCKEON MD CT ABDOMEN/PELVIS WO [place] [address] Patient Name: ANGELA ESPINOSA MR #: [id number] : 1975 Age/Sex: 41/F Req #: [id number] Adm Physician: Ordered by: MARTA BARROW MD Report #: [id number] Location: ER Room/Bed: Procedure: [id number] CT/CT ABDOMEN/PELVIS WO Ex am Date: 07/03/17 Exam Time: 0920 REPORT STATUS : Signed PROCEDURE: CT ABDOMEN AND PELVIS WITHOUT CONTRAST TECHNIQUE: The abdomen and pelvis were scanned utilizing a multidetector helical scann er from the diaphragm to the lesser trochanter. No intravenous or oral contra st was administered as per physician request. Coronal and sagittal multiplan ar reformations were obtained. COMPARISON: CT abdomen and pelvis 11/24/2016 . INDICATIONS: RIGHT FLANK PAIN FINDINGS: ABSENCE OF INTRAVENOUS CONTRAST DECREASES SENSITIVITY FOR DETECTION OF FOCAL LESIONS AND VASCULAR P ATHOLOGY. LOWER THORAX: Normal. HEPATOBILIARY: No focal hepatic lesi ons. No biliary ductal dilatation. Cholecystectomy. SPLEEN: No splenomegal y. PANCREAS: No focal masses or ductal dilatation. ADRENALS: No adrenal nodules. KIDNEYS/URETERS: No hydronephrosis, obstructing calculi, or solid mas s lesions. The punctate calculi are present bilaterally. Stable left renal cysts. PELVIC ORGANS/BLADDER: Hysterectomy. Normal ovaries. Normal urinary bladder. PERITONEUM / RETROPERITONEUM: No free air or fluid. LYMPH NODE S: No lymphadenopathy. VESSELS: Unremarkable. GI TRACT: No distention or wall thickening. Normal appendix. Moderate amount of retained feces limits i ntraluminally evaluation of the colon. BONES AND SOFT TISSUES: Unremarkabl e. IMPRESSION: Bilateral nonobstructing nephrolithiasis. Dict ated by: Jarek Najera M.D. on 07/03/2017 at 10:27 Electronically approved by: Jarek Najera M.D. on 07/03/2017 at 10:27 Dictated By: JAREK NAJERA MD 1027 Transcribed By: FAVIAN on 07/03/17 1027 COPY TO: MARTA BARROW MD
--- NOTE | 2019-10-30 14:06 | Emergency Department Note ---
History of Present Illnes History of Present Illness Chief Complaint: Abdominal Complaints History of Present Illness This is a 43 year old female .c/o left flank pain dysuria Chief Complaint Comment LEFT SIDED FLANK PAIN WITH NAUSEA, STARTED YESTERDAY AND PAIN IS WORSE WHEN URINATING. Historian: Patient Arrival Mode: Car Onset (how long ago): day(s) (2 days) Location: left flnak pain Quality: mod Radiation: back, abdomen, flank; non-radiation, neck, extremity, periumbilical, proximal, distal, other Severity: moderate Duration (how long): day(s) (2 days ) Timing of current episode: constant Progression: worsening Context: recent illness, recent surgery, recent immobilization, recent travel, trauma/injury, new medications, hx of DVT/PE, non-compliance w/ medications, other Relieving factors: none Exacerbating factors: none Treatments prior to arrival: none (NATALIA MORE NP) Past Medical/Family History Physician Review I have reviewed the patient's past medical and family history. Any updates have been documented here. (NATALIA MORE NP) Past Medical History Recent Fever: No Clinical Suspicion of Infectio: No New/Unexplained Change in Ment: No Past Medical History: Kidney Stones, Other Mental Illness Other Medical History: PTSD MORBID OBESITY Past Surgical History: Cholecysctectomy, Hysterectomy, Hernia Repair Other Surgery: Lithotripsy (NATALIA MORE NP) Social History Smoking Cessation: Never Smoker Alcohol Use: None Any Illegal Drug Use: No TB Exposure/Symptoms: No Physically hurt or threatened: No (NATALIA MORE NP) Family History Family history of heart diseas: No (NATALIA MORE NP) Other Last Tetanus: unknown Any Pre-Existing Lines (PICC,: No (NATALIA MORE NP) Review of Systems Review of Systems Constitutional: no symptoms EENTM: no symptoms Cardiovascular: no symptoms Respiratory: no symptoms Gastrointestinal: nausea, other (c/o left flank pain ) Genitourinary: dysuria, frequency Musculoskeletal: no symptoms Neurological: no symptoms Psychological: no symptoms Endocrine: no symptoms Hematological/Lymphatic: no symptoms Review of other systems All other systems reviewed and negative. (NATALIA MORE NP) Physical Exam Related Data Allergies: Coded Allergies: ceftriaxone (Verified Allergy, Severe, 10/30/19) sulfamethoxazole (Verified Allergy, Severe, 10/30/19) trimethoprim (Verified Allergy, Severe, 10/30/19) codeine (Verified Allergy, Mild, 04/28/19) tramadol (Verified Allergy, Unknown, 04/28/19) Triage Vital Signs Vital Signs Date Time Temp Pulse Resp B/P (MAP) Pulse Ox O2 Delivery O2 Flow Rate FiO2 10/30/19 13:59 98.7 103 18 138/100 96 Vital signs reviewed: Yes (NATALIA MORE NP) Physical Exam CONSTITUTIONAL Constitutional: well-developed, well-nourished HENT HENT: normocephalic, atraumatic, oropharynx clear/moist, nose normal HENT L/R: left ext ear normal, right ext ear normal EYES Eyes: PERRL, conjunctivae normal NECK Neck: ROM normal PULMONARY Pulmonary: effort normal, breath sounds normal CARDIOVASCULAR Cardiovascular: regular rhythm, heart sounds normal, capillary refill normal, normal rate GASTROINTESTINAL Abdominal: soft, nontender, bowel sounds normal, left CVA tenderness (minimal / c/o nausea), other (left flank pain ) GENITOURINARY Genitourinary: exam deferred, other (c/o dysuria ) SKIN Skin: warm, dry MUSCULOSKELETAL Musculoskeletal: ROM normal NEUROLOGICAL Neurological: alert, oriented x 3, no gross motor or sensory deficits PSYCHOLOGICAL Psychological: mood/affect normal, judgement normal (NATALIA MORE NP) Critical Care Time Subsequent provider I assumed direction of critical care for this patient from another provider of my specialty. (NATALIA MORE NP) Assessment & Plan Reassessment Reassessment time: 14:05 Reassessment 43y f presented to ed c/o left flank pain on set yesterday hx kidney stones c/o nausea dysuria - presentation c/w poss kidney stone - discussed plan of care w/ Dr Stewart - lab ct ordered pt medicated w/ ns toradol morphine rocephin pt paulette oral fluids sts feeling better (NATALIA MORE NP) Assessment & Plan Final Impression: (1) ACUTE PYELONEPHRITIS Assessment & Plan Dr Stewart in eval pt status - discussed lab ct results plan of care and f/u instructions plan: 1. increase oral fluids 2. return to ed as needed 3. follow up with pcp/uro in 1-2 days w/o fail 4. zofran cipro prednisone (NATALIA MORE NP) Depart Disposition: HOME, SELF-CARE Last Vital Signs Date Time Temp Pulse Resp B/P (MAP) Pulse Ox O2 Delivery O2 Flow Rate FiO2 10/30/19 13:59 98.7 103 18 138/100 96 (NATALIA MORE SOIL CONSERVATION TECHNICIAN) Home Meds Reported Medications Clonazepam (CLONAZEPAM) 2 Mg Tablet, 2 MG PO HS 11/10/18 Diazepam (DIAZEPAM) 10 Mg Tablet, 10 MG PO HS 06/03/18 Amitriptyline Hcl (AMITRIPTYLINE HCL) 150 Mg Tablet, 150 MG PO HS 06/03/18 Physician Attestation Provider Attestation i discussed with advanced practitioners and agree with diagnosis, treatment and plan (TANYA STEWART) NATALIA MORE SOIL CONSERVATION TECHNICIAN October 30, 2019 14:06 TANYA STEWART Oct 31, 2019 09:02
[2019-10-30 14:31] LABS: BASOPHILS # (AUTO) 0.1 (0.0-0.1); BASOPHILS % 0.6 % (0.0-1.0); EOSINOPHILS # (AUTO) 0.3 (0.0-0.4); EOSINOPHILS % 2.4 % (0.0-6.0); HEMATOCRIT 37.3 % (34.2-44.1); HEMOGLOBIN 12.7 g/dL (12.0-16.0); LYMPHOCYTES # (AUTO) 2.2 (1.0-3.2); LYMPHOCYTES % 20.5 % (18.0-39.1); MEAN CORPUSCULAR HEMOGLOBIN 28.4 pg (28-32); MEAN CORPUSCULAR VOLUME 83.4 fL (81-99); MONOCYTES # (AUTO) 0.8 (0.2-0.8); MONOCYTES % 7.4 % (4.4-11.3); NEUTROPHILS # (AUTO) 7.5 (2.1-6.9); NEUTROPHILS % 68.6 % (38.7-80.0); PLATELET COUNT 51 x10e3/uL (140-360); RED BLOOD COUNT 4.47 x10e6/uL (3.6-5.1); RED CELL DISTRIBUTION WIDTH 14.4 % (11.7-14.4)
[2019-10-30 14:44] LABS: CLARITY,URINE CLOUDY (CLEAR); COLOR,URINE YELLOW (YELLOW)
[2019-10-30 14:46] LABS: BILIRUBIN,URINE NEGATIVE (NEGATIVE); KETONES,URINE NEGATIVE (NEGATIVE); LEUKOCYTE ESTERASE ,URINE SMALL (NEGATIVE); NITRITE,URINE POSITIVE (NEGATIVE); PROTEIN,URINE DIPSTICK NEGATIVE (NEGATIVE); URINE UROBILINOGEN 0.2 mg/dL (0.2 - 1)
[2019-10-30 14:53] LABS: ALANINE AMINOTRANSFERASE 38 IU/L (0-55); ALBUMIN 3.5 g/dL (3.5-5.0); ALBUMIN/GLOBULIN RATIO 1.1 (0.8-2.0); ALKALINE PHOSPHATASE 81 IU/L (40-150); ANION GAP 15.8 mmol/L (8-16); BLOOD UREA NITROGEN 10 mg/dL (7-26); BUN/CREATININE RATIO 13 (6-25); CALCIUM 9.5 mg/dL (8.4-10.2); CARBON DIOXIDE 24 mmol/L (22-29); CHLORIDE 102 mmol/L (98-107); CREATININE, SERUM 0.75 mg/dL (0.57-1.11); EST GLOMERULAR FILTRATION RATE > 60 ML/MIN (60-); GLUCOSE 85 mg/dL (74-118); POTASSIUM 3.8 mmol/L (3.5-5.1); SODIUM 138 mmol/L (136-145)
[2019-10-30 15:17] LABS: BACTERIA,URINE MODERATE /HPF; EPITHELIAL CELLS,URINE FEW /LPF
--- NOTE | 2019-10-30 15:21 | Diagnostic Imaging Report ---
EXAM: CT Abdomen and Pelvis without contrast INDICATION: Stone protocol. COMPARISON: CT abdomen/pelvis 02-26-2019. KUB 04-22-2019. TECHNIQUE: Abdomen and pelvis were scanned utilizing a multidetector helical scanner from the lung base to the pubic symphysis without administration of IV contrast. Coronal and sagittal reformations were obtained. Renal stone protocol was performed. IV CONTRAST: None. ORAL CONTRAST: None. COMPLICATIONS: None RADIATION DOSE: Total DLP: 861 mGy*cm Estimated effective dose: (DLP x 0.015 x size factor) mSv CTDIvol has been reviewed. It is below the limits set by the Radiation Protocol Committee (RPC). Dose modulation, iterative reconstruction, and/or weight based adjustment of the mA/kV was utilized to reduce the radiation dose to as low as reasonably achievable. FINDINGS: LINES and TUBES: None. LOWER THORAX: Mild dependent bibasilar atelectasis. HEPATOBILIARY: Enlarged liver with decreased hepatic attenuation. No focal hepatic lesions. No biliary ductal dilation. GALLBLADDER: There are cholecystectomy clips. SPLEEN: No splenomegaly. PANCREAS: No focal masses or ductal dilatation. ADRENALS: No adrenal nodules KIDNEYS/URETERS: No hydronephrosis. Bilateral nonobstructive renal stones, for example a 4 mm right mid pole stone and a 4 mm left lower pole stone. No evidence of ureteral stone. A 4 mm hyperdensity in the left upper pole kidney (150 Hounsfield units; series 3, image 57) may represent hemorrhagic cyst versus developing stone. Mild scarring in the left upper pole kidney. No evidence of solid mass. GI TRACT: No abnormal distention, wall thickening, or evidence of bowel obstruction. Appendix is normal. PELVIC ORGANS/BLADDER: Interval resolution of bladder wall thickening. Hysterectomy. LYMPH NODES: No lymphadenopathy. VESSELS: Unremarkable. PERITONEUM / RETROPERITONEUM: No free air or fluid. BONES: Degenerative changes in the spine hips and pelvis. No acute osseous abnormality. No suspicious lytic or blastic lesions. SOFT TISSUES: Postsurgical changes in the umbilicus. Diffuse anasarca. IMPRESSION: Bilateral nonobstructing renal stones. Hepatomegaly and hepatic steatosis. Signed by: Dr. Evaristo Christina MD on 10/30/2019 3:17 PM
[2019-10-30 21:28] LABS: PLATELET ESTIMATE MARKEDLY DECREASED
== END | disposition home or self-care (01) ==
LOC: ER 13:54
DX: M54.5 Low back pain (principal); R11.0 Nausea; R10.33 Periumbilical pain; N10 Acute pyelonephritis; F43.10 Post-traumatic stress disorder, unspecified
CPT/HCPCS: 36415; 74176; 80053; 81001; 85025; 87086; 99282; J0696; J0744; J1885; J2270; J2405; J2930; J7030

== ENCOUNTER 2019-11-03 19:22 | Inpatient (IN) | payer OTHER ==
[~2019-11-03] VITALS: Ht 153.4 cm; Wt 99.8 kg
[~2019-11-03 19:22] MED LIST changes: -CEFTRIAXONE SOD 1 GM/NS 50 ML 50 ML IV STA; -CIPROFLOXACIN 400 MG/D5W 200ML 200 ML IV ONE; -KETOROLAC TROMETHAMINE 30 MG/ML VIAL IV NR; -METHYLPREDNISOLONE SOD SUCC 125 MG/2ML VIAL IV ONE; -MORPHINE SULFATE INJ 4 MG/ML INJ 1ML IV ONE; -ONDANSETRON HCL INJ 2MG/ML 2ML 2 MG/ML VIAL IV NR; -SODIUM CHLORIDE 0.9% 1000ML 1,000 ML IV STA
--- OUTSIDE RECORDS SUMMARY | 2019-11-03 19:24 | XMS REPORT | Clinical Summary ---
Author Author [facility] Address Unknown Phone Unavailable Care Team Providers Care Media/Instructional Designer Name Role Phone Asked, No Pcp PCP [...] INFLUENZA VACCINE 12/31/2019 Results Not on fileafter 11/02/2018 Insurance Type Payer Benefit Subscriber ID Effective Phone Address Plan / Dates Group HMO [employer] xxxxxxxx [id number] [employer] resent [facility] Advance Directives For more information, please contact: [phone] Patient Fitter Armament Explanation Type Date Recorded Advance Directives, Living Will and Medical Power of Rural Service Engineer
--- OUTSIDE RECORDS SUMMARY | 2019-11-03 19:24 | XMS REPORT | Clinical Summary ---
Author Author [facility] Address Unknown Phone Unavailable Care Team Providers Care Physical Medicine Specialist Name Role Phone Sharpless PCP Unavailable Allergies [...] Not on file Results Not on fileafter 11/02/2018 Insurance Payer Benefit Subscriber ID Type Phone Address Plan / Group MEDICAID - MEDICAID MGD MEDICAID xxxxxxxxx Medica id [employer]ARE [employer] Non-Contra cted (Home) [place] [address]
--- OUTSIDE RECORDS SUMMARY | 2019-11-03 19:30 | XMS REPORT | Continuity of Care Document ---
Author Author [facility] [place] [place] t Organization [facility] Address [address] [place] [address] Phone Unavailable Care Team Providers Care Flight Control Manager Name Role Phone NONSTAFF PCP Unavailable Ashutosh VORA Attphys Unavailable JUANMarianne LEIGH Attphys Unavailable NATALIA AVILA Attphys Unavailable GLENN TILLEY Attphys Unavailable SWEET, A LAIRD Attphys Unavailable HENRI, T BARROW Attphys Unavailable TANVI, S AMBICA Attphys Unavailable HUSBY, T MADELINE Attphys Unavailable MANEEVESE, V CANDE Attphys Unavailable LONI CRAWFORD Attphys Unavailable MADELINE MCKEON Attphys Unavailable Khang BARROW Attphys Unavailable GLENN TILLEY Admphys Unavailable Payers Payer Name Policy Type Policy Number Effective Date Expiration Date Yaron kelley [facility] [id number] 2016 00:00 :00 [facility] [employer] [id number] 2016 00:00:00 [facility] [id number] 2016 00:00:00 [facility] Problems Condition Name Condition Details Condition Category Status Onset Date Resolution Date Last Treatment Date Treating Clinician Comments Source Nausea vomiting and diarrhea Nausea vomiting and diarrhea Disease Active 2017-10-25 00:00:00 [facility] Mild dehydration Mild dehydration Disease Active 2017-10-25 00:00:00 [facility] Acute pancreatitis Pancreatitis, acute Problem Active [facility] Abdominal pain Abdominal pain Problem Active [facility] Calculus of kidney Kidney stones Problem Active [facility] Allergies, Adverse Reactions, Alerts Allergy Name Allergy Type Status Severity Reaction(s) Onset Date Inacti ve Date Treating Clinician Comments Source codeine DA Active ID 2019-10-08 00:00:00 [facility] sulfamethoxazole DA Active SV 2019-10-08 00:00:00 [facility] trimethoprim DA Active SV 2019-10-08 00:00:00 [facility] tramadol DA Active ID 2019-10-08 00:00:00 [facility] ceftriaxone DA Active SV 2019-10-08 00:00:00 [facility] codeine DA Active ID 2019-10-05 00:00:00 [facility] sulfamethoxazole DA Active SV 2019-10-05 00:00:00 [facility] trimethoprim DA Active SV 2019-10-05 00:00:00 [facility] tramadol DA Active ID 2019-10-05 00:00:00 [facility] ceftriaxone DA Active SV 2019-10-05 00:00:00 [facility] codeine DA Active ID 2019-07-24 00:00:00 [facility] sulfamethoxazole DA Active ID 2019-07-24 00:00:00 [facility] trimethoprim DA Active ID 2019-07-24 00:00:00 [facility] tramadol DA Active ID 2019-07-24 00:00:00 [facility] ceftriaxone DA Active U 2019-07-24 00:00:00 [facility] codeine DA Active ID 2019-07-22 00:00:00 [facility] sulfamethoxazole DA Active SV 2019-07-22 00:00:00 [facility] trimethoprim DA Active SV 2019-07-22 00:00:00 [facility] tramadol DA Active ID 2019-07-22 00:00:00 [facility] ceftriaxone DA Active SV 2019-07-22 00:00:00 [facility] codeine DA Active ID 2019-05-13 00:00:00 [facility] sulfamethoxazole DA Active SV 2019-05-13 00:00:00 [facility] trimethoprim DA Active SV 2019-05-13 00:00:00 [facility] tramadol DA Active ID 2019-05-13 00:00:00 [facility] ceftriaxone DA Active SV 2019-05-13 00:00:00 [facility] Codeine Allergy to Substance Active Mild 2019-04-28 00:00:00 [facility] Tramadol Allergy to Substance Active 2019-04-28 00:00:00 [facility] sulfamethoxazole DA Active MO 2019-04-02 00:00:00 [facility] trimethoprim DA Active MO 2019-04-02 00:00:00 [facility] sulfamethoxazole DA Active SV 2019-03-11 00:00:00 [facility] trimethoprim DA Active SV 2019-03-11 00:00:00 [facility] ceftriaxone DA Active SV 2019-03-11 00:00:00 [facility] codeine DA Active SV 2019-02-23 00:00:00 [facility] tramadol DA Active SV 2019-02-23 00:00:00 [facility] codeine DA Active SV 2019-02-06 00:00:00 [facility] tramadol DA Active MO 2019-02-06 00:00:00 [facility] ceftriaxone DA Active SV 2019-02-06 00:00:00 [facility] ceftriaxone DA Active SV 2019-02-05 00:00:00 [facility] codeine DA Active ID 2019-01-25 00:00:00 [facility] tramadol DA Active ID 2019-01-25 00:00:00 [facility] codeine DA Active ID 2019-01-10 00:00:00 [facility] tramadol DA Active ID 2019-01-10 00:00:00 [facility] codeine DA Active SV 2018-12-26 00:00:00 [facility] tramadol DA Active SV 2018-12-26 00:00:00 [facility] codeine DA Active SV 2018-12-25 00:00:00 [facility] tramadol DA Active SV 2018-12-25 00:00:00 [facility] codeine DA Active ID 2018-12-08 00:00:00 [facility] tramadol DA Active ID 2018-12-08 00:00:00 [facility] codeine DA Active ID 2018-11-07 00:00:00 [facility] tramadol DA Active ID 2018-11-07 00:00:00 [facility] codeine DA Active ID 2018-10-19 00:00:00 [facility] tramadol DA Active ID 2018-10-19 00:00:00 [facility] codeine DA Active ID 2018-08-28 00:00:00 [facility] tramadol DA Active ID 2018-08-28 00:00:00 [facility] codeine DA Active ID 2018-08-18 00:00:00 [facility] tramadol DA Active ID 2018-08-18 00:00:00 [facility] codeine DA Active ID 2018-08-07 00:00:00 [facility] tramadol DA Active ID 2018-08-07 00:00:00 [facility] codeine DA Active ID 2018-07-29 00:00:00 [facility] tramadol DA Active ID 2018-07-29 00:00:00 [facility] codeine DA Active ID 2018-07-22 00:00:00 [facility] tramadol DA Active ID 2018-07-22 00:00:00 [facility] codeine DA Active ID 2018-07-03 00:00:00 [facility] tramadol DA Active ID 2018-07-03 00:00:00 [facility] codeine DA Active ID 2018-07-01 00:00:00 [facility] tramadol DA Active ID 2018-07-01 00:00:00 [facility] codeine DA Active 2018-05-15 00:00:00 [facility] tramadol DA Active ND 2018-05-15 00:00:00 [facility] Codeine Propensity to adverse reactions to drug Active Other (See Comments) 2018-03-05 00:00:00 [facility] Tramadol Propensity to adverse reactions to drug Active Other (See Comments) 2018-03-05 00:00:00 [facility] codeine DA Active ID 2018-02-05 00:00:00 [facility] tramadol DA Active ID 2018-02-05 00:00:00 [facility] codeine DA Active ID 2018-02-02 00:00:00 [facility] tramadol DA Active ID 2018-02-02 00:00:00 [facility] codeine DA Active ID 2018-01-28 00:00:00 [facility] tramadol DA Active ID 2018-01-28 00:00:00 [facility] Codeine Propensity to adverse reactions Active 2017-10-25 0 0:00:00 [facility] Tramadol Propensity to adverse reactions Active 2017-10-25 00:00:00 [facility] Social History Social Habit Start Date Stop Date Quantity Comments Source History of tobacco use Current smoker Vergara Uatsdin Sex Assigned At [facility] Alcohol intake 2018-03-05 00:00:00 2018-03-05 00:00:00 Current [...] Mg Oral 2018-03-04 00:00:00 2018-06-03 00:00:00 No Nanci Oviedo Do 500 Daily for 10 [facility] Cephalexin Monohydrate (Keflex) 500 Mg Capsule, 500 Mg Oral Cephalexin Monohydrate (Keflex) 500 Mg Capsule, 500 Mg Oral 2018-01-21 00:00:00 06-03 00:00:00 No Seema Oviedo Do 500 Every 6 Hours [facility] Prednisone 20 Mg Tab, 40 Mg Oral Prednisone 20 Mg Tab, 40 Mg Oral 2018-01-21 00:00:00 2018-06-03 00:00:00 No Seema Oviedo Do 40 Daily [facility] Acetaminophen With Codeine (Tylenol With Codeine #3 Tablet) 1 Each Tablet, 300 Mg Oral Acetaminophen With Codeine (Tylenol With Codeine #3 Tablet) 1 Each Tablet, 300 Mg Oral 2017-08-24 00:00:00 2017-12-04 00:00:00 No Glenn albarado Md 300 Every 8 Hours as needed for Pain [facility] Cyclobenzaprine Hcl 10 Mg Tablet, 5 Mg Oral Cyclobenza rita Hcl 10 Mg Tablet, 5 Mg Oral 2017-08-24 00:00:00 2017-12-04 00:00:00 No Glenn Tilley Md 5 Three Times A Day [facility] Ondansetron (Zofran Odt) 4 Mg Tab.rapdis, 4 Mg Oral On dansetron (Zofran Odt) 4 Mg Tab.rapdis, 4 Mg Oral 2017-08-24 00:00:00 2017-12-04 00:00:00 Christi Tilley Md 4 Q4-6H Prn [facility] Polyethylene Glycol 3350 (Miralax) 17 Gm Powd.pack, 17 Gm Oral Polyethylene Glycol 3350 (Miralax) 17 Gm Powd.pack, 17 Gm Oral 2017-08-24 00:00:00 2017 00:00:00 Christi Tilley Md 17 Twice A Day [facility] Senna Fruit/Conc/Doc Sod/Bisa 1 Ea Tab, 2 Ea Oral Yvette a Fruit/Conc/Doc Sod/Bisa 1 Ea Tab, 2 Ea Oral 2017-08-24 00:00:00 2017-12-04 00:00:00 No Glenn albarado Md 2 Bedtime [facility] Amitriptyline Hcl 150 Mg Tablet Amitriptyline Hcl 150 Mg Tablet Yes 150 Bedtime [facility] Clonazepam 2 Mg Tablet Clonazepam 2 Mg Tablet Yes 2 Bedtime [facility] Diazepam 10 Mg Tablet Diazepam 10 Mg Tablet Yes 10 Bedtime [facility] Procedures Procedure Date / Time Performed Performing Clinician [facility] e X-ray of chest, single view 2019-03-01 00:00:00 NATALIA AVILA [facility] Computed tomography of abdomen and pelvis with contrast 2018 00:00:00 NATALIA AVILA [facility] Computed tomography of abdomen and pelvis with contrast 2018 00:00:00 JOHN MALONEY [facility] CT of abdomen and pelvis without contrast 2018-10-01 00:00:00 EROS ZAZUETA [facility] EMERGENCY DEPT VISIT 2018-08-08 00:00:00 [facility] CT of abdomen and pelvis without contrast 2018-08-05 00:00:0 0 COLLETTE MARTINEZ [facility] Plan of Care Planned Activity Planned Date Details Comments Source Future Scheduled Test 2019-12-31 00:00:00 INFLUENZA VACCINE [code = INFLUENZA VACCINE] Jai Zee Future Scheduled Test 1998 00:00:00 Screening for lisset gnant neoplasm of cervix (procedure) [code = 445583589] Jai delarosa Encounters Start Date/Time End Date/Time Encounter Type Admission Type Att[facility] Care Department Encounter ID Source 2019-04-28 07:19:00 2019-04-28 08:41:00 Departed Emergency Room [facility] [id number] [facility] 2019-04-22 08:20:00 2019-04-22 12:42:00 Departed Emergency Room 1 COLLETTE MARTINEZ [facility] [id number] [facility] 2019-04-16 06:54:00 2019-04-16 06:54:00 Emergency E [facility] 2019-03-18 08:01:00 2019-03-18 09:40:00 Departed Emergency Room [facility] [id number] [facility] 2019-03-03 07:46:00 2019-03-03 07:46:00 Emergency E MHSE MHSE [facility] 2019-03-01 08:09:00 2019-03-01 09:54:00 Departed Emergency Room 1 NATALIA AVILA [facility] [id number] [facility] 2019-02-26 12:14:00 2019-02-26 16:30:00 Departed Emergency Room 1 [facility] [id number] [facility] 2019-01-21 07:56:00 2019-01-21 07:56:00 Emergency E MHSE MHSE [facility] 2019-01-14 06:04:00 2019-01-14 06:04:00 Emergency E MHSE MHSE [facility]81 [facility] 2019-01-12 09:04:00 2019-01-12 09:04:00 Emergency E MHSE MHSE [facility] 2018-12-21 08:10:00 2018-12-21 08:10:00 Emergency E MHSE MHSE [facility] 2018-11-09 23:38:00 2018-11-12 10:55:00 Discharged Inpatient (obs) 1 GLENN TILLEY [facility] [id number] [facility] 2018-10-27 07:48:00 2018-10-27 07:48:00 Emergency E MHSE MHSE [id number] 2018-10-14 07:46:00 2018-10-14 07:46:00 Emergency E MHSE MHSE [facility]77 [facility] 2018-10-01 07:52:00 2018-10-01 10:54:00 Departed Emergency Room 1 EROS SIDHU [facility] [id number] [facility] 2018-09-29 07:48:00 2018-09-29 07:48:00 Emergency E MHSE MHSE [id number] 2018-09-09 07:48:00 2018-09-09 07:48:00 Emergency E MHSE MHSE [facility] 2018-08-30 10:01:00 2018-08-30 10:01:00 Emergency E MHSE MHSE [id number] 2018-08-08 09:43:00 2018-08-08 13:52:00 Departed Emergency Room [facility] [id number] [facility] 2018-08-05 07:58:00 2018-08-05 11:18:00 Departed Emergency Room 1 COLLETTE MARTINEZ [facility] [id number] [facility] 2018-06-15 08:19:00 2018-06-15 11:31:00 Departed Emergency Room [facility] [id number] [facility] 2018-06-03 08:45:00 2018-06-03 12:30:00 Departed Emergency Room 1 EROS SIDHU [facility] [id number] [facility] 2018-04-28 08:51:00 2018-04-28 11:28:00 Departed Emergency Room [facility] [id number] [facility] 2018-04-09 08:18:00 2018-04-09 09:41:00 Departed Emergency Room [facility] [id number] [facility] 2018-03-31 08:02:00 2018-03-31 10:40:00 Departed Emergency Room [facility] [id number] [facility] 2018-03-28 08:28:00 2018-03-28 12:15:00 Departed Emergency Room 1 DANIAL ÁLVAREZ [facility] [id number] [facility] 2018-03-04 08:29:00 2018-03-04 12:33:00 Departed Emergency Room 1 SEEMA TINAJERO [facility] [id number] [facility] 2018-02-09 08:28:00 2018-02-09 11:21:00 Departed Emergency Room [facility] [id number] [facility] 2018-01-21 07:51:00 2018-01-21 11:00:00 Departed Emergency Room 1 SEEMA TINAJERO [facility] [id number] [facility] 2017-12-04 07:45:00 2017-12-04 13:10:00 Departed Emergency Room 1 MADELINE GILBERT [facility] [id number] [facility] 2017-11-17 07:45:00 2017-11-17 11:15:00 Departed Emergency Room 1 CANDE LUOIS [facility] [id number] [facility] 2017-10-26 09:23:00 2017-10-26 12:30:00 Departed Emergency Room 1 MADELINE GILBERT [facility] [id number] [facility] 2017-09-09 08:01:00 2017-09-09 10:26:00 Departed Emergency Room ER AKOSUA MARTINEZS [facility] [id number] [facility] 2017-08-20 09:54:00 2017-08-24 09:52:00 Discharged Inpatient ER GLENN TILLEY [facility] [id number] [facility] 2017-08-05 08:13:00 2017-08-05 12:28:00 Departed Emergency Room ER MADELINE GILBERT [facility] [id number] [facility] 2017-07-30 08:25:00 2017-07-30 11:50:00 Departed Emergency Room ER MADELINE MCKEON [facility] [id number] [facility] 2017-07-03 07:56:00 2017-07-03 11:17:00 Departed Emergency Room ER MARTA BARROW [facility] [id number] [facility] 2016-11-24 18:59:00 2016-11-24 23:11:00 Departed Emergency Room [facility] [id number] [facility] Results Test Description Test Time Test Comments Results Result Comments Source CT ABDOMEN/PELVIS WO 2019-10-30 15:08:00 [place] [address] Patient Name: ANGELA ESPINOSA MR #: [id number] : 1975 Age/Sex: 43/F Req #: [id number] Adm Physician: Ordered by: NATALIA MORE BLENDER / COOK Report #: [id number] Location: ER Room/Bed: Procedure: [id number] CT/CT ABDOMEN/PELVIS WO Exam Date: 10/30/19 Exam Time: 1430 REPORT STATUS: Signed EXAM: CT Abdomen and Pelvis without contrast INDICATION: Stone protocol. COMPARISON: CT abdomen/pelvis 02-26-2019. KUB 04-22-2019. TECHNIQUE: Abdomen and pelvis were scanned utilizing a multidetector helical scanner from the lung base to the pubic symphysis without administration of IV contrast. Coronal and sagittal reformations were obtained. Renal stone protocol was performed. IV CONTRAST: None. ORAL CONTRAST: None. COMPLICATIONS: None RADIATION DOSE: Total DLP: 861 mGy*cm Estimated effective dose: (DLP x 0.015 x size factor) mSv CTDIvol has been reviewed. It is below the limits set by the Radiation Protocol Committee (RPC). Dose modulation, iterative reconstruction, and/or weight based adjustment of the mA/kV was utilized to reduce the radiation dose to as low as reasonably achievable. FINDINGS: LINES and TUBES: None. LOWER THORAX: Mild dependent bibasilar atelectasis. HEPATOBILIARY: Enlarged liver with decreased hepatic attenuation. No focal hepatic lesions. No biliary ductal dilation. GALLBLADDER: There are cholecystectomy clips. SPLEEN: No splenomegaly. PANCREAS: No focal masses or ductal dilatation. ADREN ALS: No adrenal nodules KIDNEYS/URETERS: No hydronephrosis. Bilateral nonobstructive renal stones, for example a 4 mm right mid pole stone and a 4 mm left lower pole stone. No evidence of ureteral stone. A 4 mm hyperdensity in the left upper pole kidney (150 Hounsfield units; series 3, image 57) may represent hemorrhagic cyst versus developing stone. Mild scarring in the left upper pole kidney. No evidence of solid mass. GI TRACT: No abnormal distention, wall thickening, or evidence of bowel obstruction. Appendix is normal. PELVIC ORGANS/BLADDER: Interval resolution of bladder wall thickening. Hysterectomy. LYMPH NODES: No lymphadenopathy. VESSELS: Unremarkable. PERITONEUM / RETROPERITONEUM: No free air or fluid. BONES: Degenerative changes in the spine hips and pelvis. No acute osseous abnormality. No suspicious lytic or blastic lesions. SOFT TISSUES: Postsurgical changes in the umbilicus. Diffuse anasarca. IMPRESSION: Bilateral nonobstructing renal stones. Hepatomegaly and hepatic steatosis. Signed by: Dr. Bonita Asher MD on 10/30/2019 3:17 PM Dictated By: BONITA ASHER MD 16 Transcribed By: LULU on 10/30/191516 COPY TO: NATALIA MORE BLENDER / COOK - CT ABD PELVIS W/CONT 2019-10-13 11:13:00 Patie nt Name: ANGELA ESPINOSA Unit No: [id number] EXAMS: CPT CODE: [id number] CT ABD PELVIS W/CONT 97672 EXAM: - CT ABD PELVIS W/CONT Location: [...] visualized abnormality.. Lymph nodes: No lymphadenopathy. Name: ANGELA ESPINOSA [facility] Phys: Roseanne Garber DO [address] : 1975 Age: 43 Sex: [place] [address] Loc: P.ERS Exam Date: 10/13/2019 Status: REG ER PH: FAX: PAGE 1 Signed Report (CONTINUED) Patient Name: ANGELA ESPINOSA Unit No: [id number] EXAMS: CPT CODE: [id number] CT ABD PELVIS W/CONT 65078 <Continued> Peritoneum/retroperitoneum: No intraabdominal free air or [...] (1113) by:[email or web address] Printed Date/Time: 10/13/2019 (1116) Name: ANGELA ESPINOSA [facility] Phys: Roseanne Garber DO [address] : 1975 Age: 43 Sex: [place] [address] Loc: P.ERS Exam Date: 10/13/2019 Status: REG [...] BA#) 0.05 x10 3/uL 0.0-0.20 N HCG [id number] 09:51:00* Test Item Value Reference Range Interpretation [...] - 71.24 141 9.5 - 7505 1398 979 - 56386 3339 586 - 943151 01363 9916 - [id number] 28970 27917 [id number] - [id number] 81342 34890 - [id number] 17855 [id number] - [id number] [id number] [id number] - [id number] 83922 9040 - [id number] 51170 8175 [id number] 07431 8000 - 60152 DATE OF LAST MENSTRUAL PERIOD: 10/13/19UA RFLX MICR CULT IF [id number] 09:48:00* Test Item Value Reference Range Interpretation [...] A Indication for culture: Suprapubic PainBASIC METABOLIC [id number] 09:45:00* Test Item Value Reference Range Interpretation [...] CA) 8.9 mg/dL 8.8-10.2 N LIVER FUNCTION [id number] 09:45:00* Test Item Value Reference Range Interpretation [...] code = ALKP) 98 U/L 32-104 N [id number] 09:45:00* Test Item Value Reference Range Interpretation Comments LIPASE (test code = LIP) 12 U/L 0-190 N LACTIC [id number] 09:37:00* Test Item Value Reference Range Interpretation Comments LACTIC ACID (test code = LACT) 17.7 mg/dL 4.5-18.0 N CBC W/AUTO [id number] 09:34:00* Test Item Value Reference Range Interpretation [...] 0.0-0.20 N UA RFLX MICR CULT IF [id number] 09:33:00* Test Item Value Reference Range Interpretation [...] code = ALKP) 99 units/L 46-116 N [id number] 08:35:00* Test Item Value Reference Range Interpretation Comments AMYLASE (test code = JANIE) 28 units/L 30-110 L [id number] 08:35:00* Test Item Value Reference Range Interpretation Comments LIPASE (test code = LIP) 60 units/L 73-393 L UA RFLX MICR CULT IF [id number] 08:27:00* Test Item Value Reference Range Interpretation [...] SEEN Indication for culture: Suprapubic PainUR HCG [id number] 08:27:00* Test Item Value Reference Range Interpretation Comments UR HCG QUAL (test code = HCGQLU) NEGATIVE 1. Very dilute urine specimens, as indicated by a lowspecific gravity, may not contain member services representative levels ofhCG. 2. False negative results may occur when the levels of hCGare below the sensitivity level of the test. If is still suspected, a first morningurine specimen should be collected 48 hours later andtested. Indication for culture: Suprapubic PainCBC W/AUTO [id number] 08:17:00* Test Item Value Reference Range Interpretation [...] YOANA L UA RFLX MICR CULT IF [id number] 08:03:00* Test Item Value Reference Range Interpretation [...] RARE-FEW Indication for culture: Suprapubic PainUR HCG [id number] 08:03:00* Test Item Value Reference Range Interpretation Comments UR HCG QUAL (test code = HCGQLU) NEGATIVE 1. Very dilute urine specimens, as indicated by a lowspecific gravity, may not contain member services representative levels ofhCG. 2. False negative results may occur when the levels of hCGare below the sensitivity level of the test. If is still suspected, a first morningurine specimen should be collected 48 hours later andtested. Indication for culture: Suprapubic PainDRUGS OF ABUSE [id number] 09:18:00* Test Item Value Reference Range Interpretation Comments UR COCAINE (test code = COCAU) NEGATIVE NEGATIVE DETECTION CUT OFF: 150 ng/mL UR CANNABINOIDS (test code = CANU) POSITIVE NEGATIVE A RESULTS CALLED TO [employer] BACK & CONFIRMED? [employer].LAB.KG 10/08/19916. DETECTION CUT OFF: 50 ng/mL UR AMPHETAMINE (test code = AMPHU) NEGATIVE NEGATIVE DETECTION CUT OFF: 500 ng/mL UR BARBITURATE QUAL (test code = BARBQLU) NEGATIVE NEGATIVE DETECTION CUT OFF: 200 ng/mL UR BENZODIAZEPINE (test code = BENZU) POSITIVE NEGATIVE A RESULTS CALLED TO JORGE TREAD BACK & CONFIRMED? [employer] F.LAB.KG 10/08/19916. DETECTION CUT OFF: 150 ng/mL UR OPIATES QUAL (test code = OPIAQLU) NEGATIVE NEGATIVE DETECTION CUT OFF: 100 ng/mL UR PHENCYCLIDINE (PCP) (test code = PHENCU) NEGATIVE NEGATIVE DETECTION CUT OFF: 25 ng/mL COMPREHENSIVE METABOLIC [id number] 09:18:00* Test Item Value Reference Range Interpretation [...] code = ALKP) 108 units/L 46-116 N [id number] 09:18:00* Test Item Value Reference Range Interpretation Comments AMYLASE (test code = JANIE) 52 units/L 30-110 N [id number] 09:18:00* Test Item Value Reference Range Interpretation Comments LIPASE (test code = LIP) 180 units/L 73-393 N BENZODIAZEPINE [id number] 09:18:00* Test Item Value Reference Range Interpretation Comments OXAZEPAM (test code = OXAZ) TEMAZEPAM (test code = CLAUDE) FLURAZEPAM (test code = FLUR) UA RFLX MICR CULT IF [id number] 08:29:00* Test Item Value Reference Range Interpretation [...] code = ALKP) 108 units/L 46-116 N [id number] 08:27:00* Test Item Value Reference Range Interpretation Comments AMYLASE (test code = JANIE) 52 units/L 30-110 N [id number] 08:27:00* Test Item Value Reference Range Interpretation Comments LIPASE (test code = LIP) 180 units/L 73-393 N UR HCG [id number] 08:21:00* Test Item Value Reference Range Interpretation Comments UR HCG QUAL (test code = HCGQLU) NEGATIVE 1. Very dilute urine specimens, as indicated by a lowspecific gravity, may not contain member services representative levels ofhCG. 2. False negative results may occur when the levels of hCGare below the sensitivity level of the test. If is still suspected, a first morningurine specimen should be collected 48 hours later andtested. - XR ABDOMEN 1 [id number] 08:11:00 Patient Name: ANGELA ESPINOSA Unit No: [id number] EXAMS: CPT CODE: [id number] XR ABDOMEN 1 V 02819 EXAMINATION: Abdomen one view 10/08/2019 at 0756 [...] MD Technologist: RT Robert Trnscrbd D/ (810) Santos Orig Print D/T: S: 10/08/2019 (813) [facility] NAME: ANGELA ESPINOSA Radiology Department PHYS: Robe Stauffer [address] : 1975 AGE: 43 SEX: F [place], [place] [address] LOC: ALIVIA PHONE #: [phone] EXAM DATE: 10/08/2019 ATUS: [facility] FAX #: [phone] RAD NO: Page 1 Signed Report CBC [...] = PLTMR) NORMAL YOANA L COMPREHENSIVE METABOLIC [id number] 11:47:00* Test Item Value Reference Range Interpretation [...] code = ALKP) 102 units/L 46-116 N [id number] 11:47:00* Test Item Value Reference Range Interpretation Comments LIPASE (test code = LIP) 126 units/L 73-393 N [id number] 11:47:00* Test Item Value Reference Range Interpretation Comments TROPONIN-I (test code = TROPI) <0.017 ng/mL <0.056 N UA RFLX MICR CULT IF [id number] 11:32:00* Test Item Value Reference Range Interpretation [...] SEEN Indication for culture: Suprapubic PainUR HCG [id number] 11:32:00* Test Item Value Reference Range Interpretation Comments UR HCG QUAL (test code = HCGQLU) NEGATIVE 1. Very dilute urine specimens, as indicated by a lowspecific gravity, may not contain member services representative levels ofhCG. 2. False negative results may occur when the levels of hCGare below the sensitivity level of the test. If is still suspected, a first morningurine specimen should be collected 48 hours later andtested. Indication for culture: Suprapubic PainCBC W/AUTO [id number] 11:32:00* Test Item Value Reference Range Interpretation [...] YOANA L UA RFLX MICR CULT IF [id number] 11:25:00* Test Item Value Reference Range Interpretation [...] RARE-FEW Indication for culture: Suprapubic PainUR HCG [id number] 11:25:00* Test Item Value Reference Range Interpretation Comments UR HCG QUAL (test code = HCGQLU) NEGATIVE 1. Very dilute urine specimens, as indicated by a lowspecific gravity, may not contain member services representative levels ofhCG. 2. False negative results may occur when the levels of hCGare below the sensitivity level of the test. If is still suspected, a first morningurine specimen should be collected 48 hours later andtested. Indication for culture: Suprapubic Pain- US ABDOMEN [id number] 14:16:00 Patient Name: ANGELA ESPINOSA Unit No: [id number] EXAMS: CPT CODE: [id number] US ABDOMEN COMPLETE 23216 EXAMINATION: Abdominal Ultrasound EXAM DATE: August 07, [...] Technologist: Melinda Marrufo RDMS Probe: Trnscrbd D/ (8265) t.SDR.CER Orig Print D/T: S: 09/25/2019 (5557) [facility] NAME: ANGELA DUPREE Radiology Department PHYS: Leslie Gold MD [address] : 1975 A GE: 43 SEX: F [place] [address] L OC: F.[place] PHONE #: [phone] EXAM DATE: 09/25/2019 STATU S: REG ER FAX #: [phone] RAD NO: Page 1 Signed Report Patient Name: ANGELA NAIR Unit No: [id number] EXAMS: CPT CODE: [id number] US ABDOMEN COMPLETE 12644 <Continued> [facility] NAME: ANGELA ESPINOSA Radiology Department PHYS: Leslie Levy MD [address] : 1975 AGE: 43 SEX: F [place] [address] LOC: F.ERS PHONE #: [phone] EXAM DATE: 09/25/2019 STATUS: REG ER FAX #: [phone] RAD NO: Page 2 Signed Report COMPREHENSIVE [...] 81 units/L 46-116 N DRUGS OF ABUSE [id number] 13:31:00* Test Item Value Reference Range Interpretation Comments UR COCAINE (test code = COCAU) NEGATIVE NEGATIVE DETECTION CUT OFF: 150 ng/mL UR CANNABINOIDS (test code = CANU) POSITIVE NEGATIVE A RESULTS CALLED TO DR FORREST.READ BACK & CONFIRMED? YES.BY FSilvaLABSilva 09/25/19 1331. DETECTION CUT OFF: 50 ng/mL UR AMPHETAMINE (test code = AMPHU) NEGATIVE NEGATIVE DETECTION CUT OFF: 500 ng/mL UR BARBITURATE QUAL (test code = BARBQLU) NEGATIVE NEGATIVE DETECTION CUT OFF: 200 ng/mL UR BENZODIAZEPINE (test code = BENZU) POSITIVE NEGATIVE A RESULTS CALLED TO DR FORREST.READ BACK & CONFIRMED? YES.BY FSilvaLABSilva 09/25/19 6776. DETECTION CUT OFF: 150 ng/mL UR OPIATES QUAL (test code = OPIAQLU) NEGATIVE NEGATIVE DETECTION CUT OFF: 100 ng/mL UR PHENCYCLIDINE (PCP) (test code = PHENCU) NEGATIVE NEGATIVE DETECTION CUT OFF: 25 ng/mL UA RFLX MICR CULT IF [id number] 13:22:00* Test Item Value Reference Range Interpretation [...] A Indication for culture: Suprapubic PainUR HCG [id number] 13:22:00* Test Item Value Reference Range Interpretation Comments UR HCG QUAL (test code = HCGQLU) NEGATIVE 1. Very dilute urine specimens, as indicated by a lowspecific gravity, may not contain member services representative levels ofhCG. 2. False negative results may occur when the levels of hCGare below the sensitivity level of the test. If is still suspected, a first morningurine specimen should be collected 48 hours later andtested. Indication for culture: Suprapubic PainCBC W/AUTO [id number] 13:17:00* Test Item Value Reference Range Interpretation [...] YOANA L UA RFLX MICR CULT IF [id number] 13:13:00* Test Item Value Reference Range Interpretation [...] RARE-FEW Indication for culture: Suprapubic PainUR HCG [id number] 13:13:00* Test Item Value Reference Range Interpretation Comments UR HCG QUAL (test code = HCGQLU) NEGATIVE 1. Very dilute urine specimens, as indicated by a lowspecific gravity, may not contain member services representative levels ofhCG. 2. False negative results may occur when the levels of hCGare below the sensitivity level of the test. If is still suspected, a first morningurine specimen should be collected 48 hours later andtested. Indication for culture: Suprapubic PainLACTIC [id number] 16:41:00* Test Item Value Reference Range Interpretation Comments LACTIC ACID (test code = LACT) 1.5 mmol/L 0.4-1.9 N STREPTOCOCCUS PCR [id number] 16:24:00* Test Item Value Reference Range Interpretation Comments STREPTOCOCCUS DYSGALACTIAE (test code = STREPGC) NEGATIVE FOR G/C N EGATIVE STREPA MOLECULAR (test code = STREPAMOL) NEGATIVE FOR GRP A NEGATIV E - CT ABD PELVIS [id number] 16:06:00 Name: ANGELA ESPINOSA [facility] : 1975 Age/S: 43 / F [address] Unit #: [id number] Loc: [place] [address] Phys: Kye Pisano MD Acct: [id number] Dis Date: Status: REG ER PHONE #: [phone] Exam Date: 08/18/2019 1541 FAX #: [phone] Reason: RLQ pain EXAMS: CPT CODE: [id number] CT ABD PELVIS W/CONT 29872 HISTORY: Right lower quadrant pain. COMPARISON: August [...] 1 Signed Report (CONTINUED) Name: ANGELA ESPINOSA [facility] : 1975 Age/S: 43 / F [address] [facility] Unit #: [id number] Loc: [place] [address] Phys: Kye Pisano MD Acct: [id number] Dis Date: Status: REG ER PHONE #: [phone] Exam Date: 08/18/2019 1541 FAX #: [phone] Reason: RLQ pain EXAMS: CPT CODE: [id number] ABD PELVIS W/CONT 63324 <Continued> IMPRESSION: Normal appendix (seen best in [...] Shade Alcazar M.D. CC: Kye Pisano MD Technologist:Elayne Forrest,RT(R),CT CTDI: DLP: Trnscb Date/Time: 08/18/2019 (1606) t.SDR.TH4 Orig Print D/T: S: 08/18/2019 (2277) PAGE 2 Signed Report BASIC METABOLIC [id number] 14:15:00* Test Item Value Reference Range Interpretation [...] CA) 8.6 mg/dL 8.5-10.1 N HEPATIC FUNCTION [id number] 14:15:00* Test Item Value Reference Range Interpretation [...] reference range due to change in reagent. [id number] 14:15:00* Test Item Value Reference Range Interpretation Comments LIPASE (test code = LIP) 77 U/L 73.0-393.0 N HCG SERUM [id number] 14:15:00* Test Item Value Reference Range Interpretation Comments HCG SERUM QUAL (test code = HCGQL) NEGATIVE NEGATIVE This HCGQL test is NOT applicable for MALE patients.Check with nurse about probable order error.If Tumor Marker Test needed, nurse should order test "HCGTU"(Test #550.86829) [id number] 14:15:00* Test Item Value Reference Range Interpretation Comments TROPONIN-I (test code = TROPI) <0.015 ng/mL 0-0.045 N LACTIC [id number] 13:43:00* Test Item Value Reference Range Interpretation Comments LACTIC ACID (test code = LACT) 2.4 mmol/L 0.4-1.9 HH Results called to VED7231 by VSilvaLAB.KP3 08/18/19 1342Critical results verified and read back by Nurse? YES BASIC METABOLIC [id number] 13:27:00* Test Item Value Reference Range Interpretation [...] CA) 8.6 mg/dL 8.5-10.1 N HEPATIC FUNCTION [id number] 13:27:00* Test Item Value Reference Range Interpretation [...] reference range due to change in reagent. [id number] 13:27:00* Test Item Value Reference Range Interpretation Comments LIPASE (test code = LIP) 77 U/L 73.0-393.0 N HCG SERUM [id number] 13:27:00* Test Item Value Reference Range Interpretation Comments HCG SERUM QUAL (test code = HCGQL) NEGATIVE [id number] 13:27:00* Test Item Value Reference Range Interpretation Comments TROPONIN-I (test code = TROPI) <0.015 ng/mL 0-0.045 N CBC W/O [id number] 12:59:00* Test Item Value Reference Range Interpretation [...] MPV) 9.3 fL 6.7-11.0 N CBC W/O [id number] 12:57:00* Test Item Value Reference Range Interpretation [...] (test code = MPV) fL 6.7-11.0 URINALYSIS [id number] 12:56:00* Test Item Value Reference Range Interpretation [...] #/LPF FEW Urine Source? Clean CatchB-TYPE NATRIURETIC [id number] 09:04:00* Test Item Value Reference Range Interpretation Comments B-TYPE NATRIURETIC PEPTIDE (test code = BNP) 22.48 pgram/mL 0-100 N BASIC METABOLIC [id number] 08:33:00* Test Item Value Reference Range Interpretation [...] CA) 8.5 mg/dL 8.5-10.1 N HEPATIC FUNCTION [id number] 08:33:00* Test Item Value Reference Range Interpretation [...] reference range due to change in reagent. [id number] 08:33:00* Test Item Value Reference Range Interpretation Comments LIPASE (test code = LIP) 148 U/L 73.0-393.0 N HCG SERUM [id number] 08:33:00* Test Item Value Reference Range Interpretation Comments HCG SERUM QUAL (test code = HCGQL) NEGATIVE NEGATIVE This HCGQL test is NOT applicable for MALE patients.Check with nurse about probable order error.If Tumor Marker Test needed, nurse should order test "HCGTU"(Test #550.77841) [id number] 08:33:00* Test Item Value Reference Range Interpretation Comments TROPONIN-I (test code = TROPI) <0.015 ng/mL 0-0.045 N BASIC METABOLIC [id number] 08:30:00* Test Item Value Reference Range Interpretation [...] code = CA) mg/dL 8.5-10.1 HEPATIC FUNCTION [id number] 08:30:00* Test Item Value Reference Range Interpretation [...] TOTAL (test code = ALKP) IUnit/L 45-117 [id number] 08:30:00* Test Item Value Reference Range Interpretation Comments LIPASE (test code = LIP) U/L 73.0-393.0 HCG SERUM [id number] 08:30:00* Test Item Value Reference Range Interpretation Comments HCG SERUM QUAL (test code = HCGQL) NEGATIVE NEGATIVE This HCGQL test is NOT applicable for MALE patients.Check with nurse about probable order error.If Tumor Marker Test needed, nurse should order test "HCGTU"(Test #550.41676) [id number] 08:30:00* Test Item Value Reference Range Interpretation Comments TROPONIN-I (test code = TROPI) ng/mL 0-0.045 BASIC METABOLIC [id number] 08:27:00* Test Item Value Reference Range Interpretation [...] code = CA) mg/dL 8.5-10.1 HEPATIC FUNCTION [id number] 08:27:00* Test Item Value Reference Range Interpretation [...] TOTAL (test code = ALKP) IUnit/L 45-117 [id number] 08:27:00* Test Item Value Reference Range Interpretation Comments LIPASE (test code = LIP) U/L 73.0-393.0 HCG SERUM [id number] 08:27:00* Test Item Value Reference Range Interpretation Comments HCG SERUM QUAL (test code = HCGQL) NEGATIVE NEGATIVE This HCGQL test is NOT applicable for MALE patients.Check with nurse about probable order error.If Tumor Marker Test needed, nurse should order test "HCGTU"(Test #550.28500) [id number] 08:27:00* Test Item Value Reference Range Interpretation Comments TROPONIN-I (test code = TROPI) ng/mL 0-0.045 CBC W/O [id number] 07:47:00* Test Item Value Reference Range Interpretation [...] code = MPV) fL 6.7-11.0 CBC W/O [id number] 07:47:00* Test Item Value Reference Range Interpretation [...] fL 6.7-11.0 N - XR CHEST 1 [id number] 07:46:00 FAX: India Bryson NP [place]: St: [facility] FAX: Jorge Figueroa NP [phone] Name: ANGELA ESPINOSA [facility] : 1975 Age/S: 43/F [address] [facility] Unit #: [id number] Loc: [place] [address] Phys: India Bryson NP Acct: [id number] Dis Date: Status: [facility] ER PHONE #: [phone] Exam Date: 08/14/2019 0736 FAX #: [phone] Reason: Abdominal Pain EXAMS: CPT CODE: [id number] XR CHEST 1 V 20919 HISTORY: Abdominal Pain TECHNIQUE: AP chest x-ray [...] Signed Report - XR ABDOMEN AP 1 [id number] 07:46:00 FAX: India Bryson NP [place]: St: [facility] FAX: Jorge Figueroa NP [phone] Name: ANGELA ESPINOSA [facility] : 1975 Age/S: 43/F [address] [facility] Unit #: [id number] Loc: [place] [address] Phys: India Bryson NP Acct: [id number] Dis Date: Status: [facility] ER PHONE #: [phone] Exam Date: 08/14/2019 0736 FAX #: [phone] Reason: vomiting EXAMS: CPT CODE: [id number] XR ABDOMEN AP 1 V 28235 HISTORY: vomiting TECHNIQUE: AP abdomen x-ray COMPARISON: [...] JENNA BOYLE RT(R) Trnscrd Date/Time/By: 08/14/19 20 (0748) : By: [email or web address] Orig Print D/T: S: 08/14/2019 (0759) PAGE 1 Signed Report - XR CHEST 1 [id number] 07:46:00 FAX: India Bryson NP [place]: St: REG FAX: Y Jorge Butt NP [phone] Name: ANGELA ESPINOSA [facility] : 1975 Age/S: 43/F [address] [facility] Unit #: [id number] Loc: [place] [address] Phys: India Bryson NP Acct: [id number] Dis Date: Status: REG ER PHONE #: [phone] Exam Date: 08/14/2019735 FAX #: [phone] Reason: Abdominal Pain EXAMS: CPT CODE: [id number] XR CHEST 1 V 53716 HISTORY: Abdominal Pain TECHNIQUE: AP chest x-ray [...] Technologist: JENNA BOYLE RT(R) Trnscrd Date/Time/By: 08/14/19 (0746) : By: [email or web address] Orig Print D/T: S: 08/14/2019 (0749) PAGE 1 Signed Report - XR ABDOMEN AP 1 [id number] 07:46:00 FAX: India Bryson NP [place]: St: REG FAX: Y Jorge Butt NP [phone] Name: ANGELA ESPINOSA [facility] : 1975 Age/S: 43/F [address] [facility] Unit #: [id number] Loc: [place] [address] Phys: India Bryson NP Acct: [id number] Dis Date: Status: REG ER PHONE #: [phone] Exam Date: 08/14/2019 0736 FAX #: [phone] Reason: vomiting EXAMS: CPT CODE: [id number] XR ABDOMEN AP 1 V 87084 HISTORY: vomiting TECHNIQUE: AP abdomen x-ray COMPARISON: [...] Technologist: JENNA BOYLE RT(R) Trnscrd Date/Time/By: 08/14/19 (0746) : By: [email or web address] Orig Print D/T: S: 08/14/2019 (075) PAGE 1 Signed Report URINALYSIS [id number] 07:16:00* Test Item Value Reference Range Interpretation [...] #/LPF FEW Urine Source? Clean CatchCOMPREHENSIVE METABOLIC [id number] 08:46:00* Test Item Value Reference Range Interpretation [...] due to change in reagent. COMPREHENSIVE METABOLIC [id number] 08:39:00* Test Item Value Reference Range Interpretation [...] code = ALKP) IUnit/L 45-117 CBC W/AUTO [id number] 08:31:00* Test Item Value Reference Range Interpretation [...] result is a direct measurement.========= THYROID STIMULATING [id number] 23:12:00* Test Item Value Reference Range Interpretation Comments THYROID STIMULATING HORMONE (test code = TSH) 4.640 uIU/mL 0.36-3.7 4 H TSH REFERENCE RANGES: EUTHYROID: 0.35 - 4.3 mIU/mL HYPO : > 5.5 mIU/mL HYPER : < 0.35 mIU/mL [id number] 23:09:00* Test Item Value Reference Range Interpretation Comments GLYCOSYLATED HEMOGLOBIN (HA1C) (test code = GLYHGB) 5.3 % HbA1 SUGGESTED DIAGNOSIS: HbA1C (%) Diabetic >6.4Prediabetes 5.7 - 6.4Normal <5.7 ESTIMATED AVERAGE GLUCOSE (test code = EAG) 105 MG/DL [id number] 20:42:00* Test Item Value Reference Range Interpretation Comments TROPONIN-I (test code = TROPI) <0.015 ng/mL 0-0.045 N COMMENTS TO TONGUE CARRIER: COLLECT 3 HOURS AFTER PREVIOUS [id number] 16:52:00* Test Item Value Reference Range Interpretation Comments TROPONIN-I (test code = TROPI) <0.015 ng/mL 0-0.045 N COMMENTS TO TONGUE CARRIER: COLLECT 3 HOURS AFTER PREVIOUS SAMPLE- CT ABD PELVIS W/[id number] 13:49:00 Name: ANGELA ESPINOSA [facility] : 1975 Age/S: 43 / F [address] [facility] Unit #: [id number] Loc: [place] [address] Phys: Kye Pisano MD Acct: [id number] Dis Date: 08/02/2019 Status: DIS IN PHONE #: [phone] Exam Date: 08/01/20197 FAX #: [phone] Reason: epigastric pain EXAMS: CPT CODE: [id number] CT ABD PELVIS W/CONT 71553 REASON FOR EXAM: cp rad back EXAM [...] 1 Signed Report (CONTINUED) Name: ANGELA ESPINOSA [facility] : 1975 Age/S: 43 / F [address] [facility] Unit #: [id number] Loc: [place] [address] Phys: Kye Pisano MD Acct: [id number] Dis Date: 08/02/2019 Status: DIS IN PHONE #: [phone] Exam Date: 08/01/20197 FAX #: [phone] Reason: epigastric pain EXAMS: CPT CODE: [id number] ABD PELVIS W/CONT 88158 < Continued> Abdominal vascular structures: Retroaortic left renal vein Peritoneum and retroperitoneum: No free fluid or free air. No omental or mesenteric masses. No abnormal lymph nodes. Musculoskeletal structures, chest wall, and abdominal wall: Normal IMPRESSION: Hepatomegaly with hepatic steatosis. Nonobstructing stone in the midpole of the left kidney. No inflammatory changes are seen in the left kidney. Location: [facility] at 1349 Reported and signed by: Sanjay Roman MD CC: Kye Pisano MD Technologist:Lupillo Forrest RT(R)(CT) CTDI: DLP: Trnscb Date/Time: 08/01/2019 (0822) t.SDR.RR31 Orig Print D/T: S: 08/01/2019 (4994) PAGE 2 Signed Report - CTA CHEST 2019-08-01 13:49:00 Name: ANGELA ESPINOSA [facility] : 1975 Age/S: 43 / F [address] [facility] Unit #: [id number] Loc: [place] [address] Phys: Kye Pisano MD Acct: [id number] Dis Date: 08/02/2019 Status: DIS IN PHONE #: [phone] Exam Date: 08/01/2019 1317 FAX #: [phone] Reason: cp rad back EXAMS: CPT CODE: [id number] CTA CHEST 51274 REASON FOR EXAM: cp rad back EXAM [...] 1 Signed Report (CONTINUED) Name: ANGELA ESPINOSA [facility] : 1975 Age/S: 43 / F [address] [facility] Unit #: [id number] Loc: [place] [address] Phys: Kye Pisano MD Acct: [id number] Dis Date: 08/02/2019 Status: DIS IN PHONE #: [phone] Exam Date: 08/01/2019 1317 FAX #: [phone] Reason: cp rad back EXAMS: CPT CODE: [id number] CTA CHEST 45736 < Continued> Abdominal vascular structures: Retroaortic left renal vein Peritoneum and retroperitoneum: No free fluid or free air. No omental or mesenteric masses. No abnormal lymph nodes. Musculoskeletal structures, chest wall, and abdominal wall: Normal IMPRESSION: Hepatomegaly with hepatic steatosis. Nonobstructing stone in the midpole of the left kidney. No inflammatory changes are seen in the left kidney. Location: [facility] at 1349 Reported and signed by: Sanjay Roman MD CC: Kye Pisano MD Technologist:Lupillo Forrest RT(R)(CT) CTDI: DLP: Trnscb Date/Time: 08/01/2019 (1349) t.SDR.RR31 Orig Print D/T: S: 08/01/2019 (4167) PAGE 2 Signed Report - CT ABD PELVIS W/[id number] 13:49:00 Name: ANGELA ESPINOSA [facility] : 1975 Age/S: 43 / F [address] [facility] Unit #: [id number] Loc: [place] [address] Phys: Kye Pisano MD Acct: [id number] Dis Date: Status: ADM IN PHONE #: [phone] Exam Date: 08/01/20191316 FAX #: [phone] Reason: epigastric pain EXAMS: CPT CODE: [id number] CT ABD PELVIS W/CONT 43662 REASON FOR EXAM: cp rad back EXAM [...] 1 Signed Report (CONTINUED) Name: ANGELA ESPINOSA [facility] : 1975 Age/S: 43 / F [address] [facility] Unit #: [id number] Loc: [place] [address] Phys: Kye Pisano MD Acct: [id number] Dis Date: Status: ADM IN PHONE #: [phone] Exam Date: 08/01/20191316 FAX #: [phone] Reason: epigastric pain EXAMS: CPT CODE: [id number] ABD PELVIS W/CONT 04922 < Continued> Abdominal vascular structures: Retroaortic left renal vein Peritoneum and retroperitoneum: No free fluid or free air. No omental or mesenteric masses. No abnormal lymph nodes. Musculoskeletal structures, chest wall, and abdominal wall: Normal IMPRESSION: Hepatomegaly with hepatic steatosis. Nonobstructing stone in the midpole of the left kidney. No inflammatory changes are seen in the left kidney. Location: [facility] at 1349 Reported and signed by: Sanjay Roman MD CC: Kye Pisano MD Technologist:Lupillo Forrest RT(R)(CT) CTDI: DLP: Trnscb Date/Time: 08/01/2019 (1349) t.SDR.RR31 Orig Print D/T: S: 08/01/2019 (3969) PAGE 2 Signed Report - CTA CHEST 2019-08-01 13:49:00 Name: ANGELA ESPINOSA [facility] : 1975 Age/S: 43 / F [address] [facility] Unit #: [id number] Loc: [place] [address] Phys: Kye Pisano MD Acct: [id number] Dis Date: Status: ADM IN PHONE #: [phone] Exam Date: 08/01/2019 1317 FAX #: [phone] Reason: cp rad back EXAMS: CPT CODE: [id number] CTA CHEST 56815 REASON FOR EXAM: cp rad back EXAM [...] 1 Signed Report (CONTINUED) Name: ANGELA ESPINOSA [facility] : 1975 Age/S: 43 / F [address] [facility] Unit #: [id number] Loc: [place] [address] Phys: Kye Pisano MD Acct: [id number] Dis Date: Status: ADM IN PHONE #: [phone] Exam Date: 08/01/2019 1317 FAX #: [phone] Reason: cp rad back EXAMS: CPT CODE: 0 [id number] CTA CHEST 86380 < Continued> Abdominal vascular structures: Retroaortic left renal vein Peritoneum and retroperitoneum: No free fluid or free air. No omental or mesenteric masses. No abnormal lymph nodes. Musculoskeletal structures, chest wall, and abdominal wall: Normal IMPRESSION: Hepatomegaly with hepatic steatosis. Nonobstructing stone in the midpole of the left kidney. No inflammatory changes are seen in the left kidney. Location: [facility] at 1349 Reported and signed by: Sanjay Roman MD CC: Kye Pisano MD Technologist:Lupillo Forrest RT(R)(CT) CTDI: DLP: Trnscb Date/Time: 08/01/2019 (1349) t.SDR.RR31 Orig Print D/T: S: 08/01/2019 (1374) PAGE 2 Signed Report HEPATIC FUNCTION [id number] 12:32:00* Test Item Value Reference Range Interpretation [...] reference range due to change in reagent. [id number] 12:32:00* Test Item Value Reference Range Interpretation Comments LIPASE (test code = LIP) 46 U/L 73.0-393.0 L BASIC METABOLIC [id number] 12:29:00* Test Item Value Reference Range Interpretation [...] CA) 8.7 mg/dL 8.5-10.1 N HCG SERUM [id number] 12:29:00* Test Item Value Reference Range Interpretation Comments HCG SERUM QUAL (test code = HCGQL) NEGATIVE NEGATIVE This HCGQL test is NOT applicable for MALE patients.Check with nurse about probable order error.If Tumor Marker Test needed, nurse should order test "HCGTU"(Test #550.91926) [id number] 12:29:00* Test Item Value Reference Range Interpretation Comments TROPONIN-I (test code = TROPI) <0.015 ng/mL 0-0.045 N [id number] 12:08:00* Test Item Value Reference Range Interpretation Comments D-DIMER (test code = DDIMER) 215.00 ng/mLFEU 0-500 N Clinical Cut-off value for D-Dimer is 500 ng/mL FEU. Comment: The Aereo D-Dimer assay is intended for use asan [...] skin infections -Liver cirrhosis - BASIC METABOLIC [id number] 10:31:00* Test Item Value Reference Range Interpretation [...] CA) 8.7 mg/dL 8.5-10.1 N HCG SERUM [id number] 10:31:00* Test Item Value Reference Range Interpretation Comments HCG SERUM QUAL (test code = HCGQL) NEGATIVE [id number] 10:31:00* Test Item Value Reference Range Interpretation Comments TROPONIN-I (test code = TROPI) <0.015 ng/mL 0-0.045 N BASIC METABOLIC [id number] 09:51:00* Test Item Value Reference Range Interpretation [...] code = CA) mg/dL 8.5-10.1 HCG SERUM [id number] 09:51:00* Test Item Value Reference Range Interpretation Comments HCG SERUM QUAL (test code = HCGQL) NEGATIVE [id number] 09:51:00* Test Item Value Reference Range Interpretation Comments TROPONIN-I (test code = TROPI) ng/mL 0-0.045 CBC W/O [id number] 09:36:00* Test Item Value Reference Range Interpretation [...] MPV) 9.6 fL 6.7-11.0 N CBC W/O [id number] 09:31:00* Test Item Value Reference Range Interpretation [...] MPV) fL 6.7-11.0 - XR CHEST 1 [id number] 08:32:00 FAX: Kye Pisano MD [phone] [place]: B St: DIS Name: ISMAEL DUPREELICA [facility] : [birth year] Age/S: 43/F [address] [facility] Unit #: [id number] Loc: [place] [address] Phys: Kye Pisano MD Acct: [id number] Dis Date: [id number] Status: DIS IN PHONE #: [phone] Exam Date: 08/01/2019 08 FAX #: [phone] Reason: CHEST PAIN EXAMS: CPT CODE: [id number] XR CHEST 1 V 84386 REASON FOR EXAM: CHEST PAIN Exam Order [...] ystectomy. IMPRESSION: No acute cardiopulmonary process. Location: [facility] at 0832 Reported and signed b y: Sanjay Roman MD CC: Kye Pisano MD Technologist: Naren Quezada RT(R) Tr nscrd Date/Time/By: 08/01/2019 (32) : By: [email or web address] Orig Print D/T: S: 08/01/2019 (7763) PAGE 1 Inés d Report - XR CHEST 1 [id number] 08:32:00 FAX: Kye Pisano MD [phone] [place]: B St: REG Name: ANGELA DUPREE [facility] : [birth year] Age/S: 43/F [address] [facility]: [id number] Loc: [place] [address] Phys: Kye Pisano MD Acct: [id number] Dis Date: Status: REG ER PHONE #: [phone] Exam Date: 08/01/2019 0807 FAX #: [phone] Reason: CHEST PAIN EXAMS: CPT CODE: [id number] XR CHEST 1 V 74819 REASON FOR EXAM: CHEST PAIN Exam Order [...] ystectomy. IMPRESSION: No acute cardiopulmonary process. Location: [facility] at 0832 Reported and signed b y: Sanjay Roman MD CC: Kye Pisano MD Technologist: Narne Quezada RT(R) Tr nscrd Date/Time/By: 08/01/2019 (0832) : By: [email or web address] Orig Print D/T: S: 08/01/2019 (0836) PAGE 1 Inés d Report - CT C-SPINE W/O [id number] 12:54:00 Patient Name: ANGELA ESPINOSA Unit No: [id number] EXAMS : CPT CODE: [id number] CT C-SP INE W/O CONT 03055 CT cervical spine w ithout contrast 07/10/2019 [...] Dt/Tm: 07/10/2019 (1254) by:[email or web address] Printed Date/Time: 07/10/2019 (7794) Name: STEWART BELLAOPALANGELA [facility] Phys: Homer Lopez MD [address] : 1975 Age: 43 Sex: [place] [address] Loc: Jose JOSEPH Exam Date: 07/10/2019 Status: REG ER PH: FAX: PAGE 1 Signed Report - CT HEAD/BRAIN W/O [id number] 12:46:00 Patient Name: ANGELA ESPINOSA Unit No: [id number] EXAMS : CPT CODE: [id number] CT HEAD /BRAIN W/O CONT 21530 EXAMINATION: - CT HEAD/BRAIN W/O CONT. LOCATION: [...] Bird MD; Faith crespo MD Technologist: NATE Templeton([place])(CT) CTDI: 47.28 DLP: 859 Trscr Dt/Tm: 07/10/2019 (1246) by:Ana [email or web address] Printed Date/Time: 07/10/2019 (5482) Name: [facility] Phys: Homer Lopez MD [address] : 1975 Age: 43 Sex: [place] [address] Loc: P.ERS Exam Date: 01/2020 Status: REG ER PH: FAX: PAGE 1 Signed Report - XR CHEST 1 [id number] 12:25:00Patient Name: ANGELA ESPINOSA Unit No: [id number] EXAMS: CPT CODE: [id number] XR CHEST 1 V 42787 EXAMINATION: - XR CHEST 1 V. LOCATION: [...] m2): Air Kerma (mGy): Trscr Dt/Tm: 07/10/2019 (1225) by:[email or web address] Printed Date/Time: 07/10/2019 (2748) Name: [facility] Phys: Homer Lopez MD [address] : 1975 Age: 43 Sex: F [place], [place] [address] [facility] No: [id number] Loc: PSilvaERS Exam Date: 07/10/2019 Status: REG ER PH: FAX: PAGE 1 Signed Report DRUGS OF ABUSE SCREEN [id number] 12:18:00* Test Item Value Reference Range Interpretation [...] 25 ng/mL. The method performed by the [facility] Drugs of Abuse is performed as a medical screeningtest only. If confirmation testing is required, thephysician must order the confirmatory test within 5 days ofthe specimen's collection date. The specimen will be sentout to an independent reference laboratory. URINALYSIS [id number] 12:14:00* Test Item Value Reference Range Interpretation [...] = LEUU) TRACE NEGA TIVE A UA [id number] 12:14:00* Test Item Value Reference Range Interpretation Comments UA WBC (test code = WBCU) 3-5 #WBC/HPF 0-2 A UA RBC (test code = RBCU) NONE SEEN #RBC/HPF 0-2 UA BACTERIA (test code = BACU) 1+ /HPF NONE-TRACE A UA SQUAMOUS CELLS (test code = SQU) 1+ /LPF NONE-TRACE A UA MUCUS (test code = MUCU) OCCASIONAL /LPF NONE SEEN A COMPREHENSIVE METABOLIC [id number] 12:11:00* Test Item Value Reference Range Interpretation [...] code = ALKP) 104 U/L 32-104 N [id number] 12:11:00* Test Item Value Reference Range Interpretation Comments LIPASE (test code = LIP) 39 U/L 0-190 N [id number] 12:11:00* Test Item Value Reference Range Interpretation Comments MAGNESIUM (test code = MAG) 1.7 mg/dL 1.4-2.6 N [id number] 12:11:00* Test Item Value Reference Range Interpretation Comments ALCOHOL (test code = ALC) <10 mg/dl 0-450 N [id number] 12:11:00* Test Item Value Reference Range Interpretation Comments TROPONIN-I (test code = TROPI) <0.3 ng/mL 0.00-0.30 N INTERPRETATIVE DATA:Negative or inconclusive reuslts do not exclude myocardialinfarction. Serial tests at appropriate intervals may benecessary. URINALYSIS [id number] 12:03:00* Test Item Value Reference Range Interpretation [...] = LEUU) TRACE NEGA TIVE A UA [id number] 12:03:00* Test Item Value Reference Range Interpretation Comments UA WBC (test code = WBCU) #WBC/HPF 0-2 UA RBC (test code = RBCU) #RBC/HPF 0-2 UA BACTERIA (test code = BACU) /HPF NONE-TRACE UA SQUAMOUS CELLS (test code = SQU) /LPF NONE-TRACE URINALYSIS [id number] 12:03:00* Test Item Value Reference Range Interpretation [...] = LEUU) TRACE NEGA TIVE A UA [id number] 12:03:00* Test Item Value Reference Range Interpretation Comments UA WBC (test code = WBCU) #WBC/HPF 0-2 UA RBC (test code = RBCU) #RBC/HPF 0-2 UA BACTERIA (test code = BACU) /HPF NONE-TRACE UA SQUAMOUS CELLS (test code = SQU) /LPF NONE-TRACE PROTHROMBIN [id number] 12:01:00* Test Item Value Reference Range Interpretation [...] heart valves; 2.5-3.5recurrent systemic embolism. CBC W/AUTO [id number] 11:53:00* Test Item Value Reference Range Interpretation [...] 3/uL 0.0-0.20 N DRUGS OF ABUSE SCREEN [id number] 09:32:00* Test Item Value Reference Range Interpretation [...] = [place]) NEGATIVE <300 ng/mL HEPATIC FUNCTION [id number] 09:18:00* Test Item Value Reference Range Interpretation [...] reference range due to change in reagent. [id number] 09:18:00* Test Item Value Reference Range Interpretation [...] ANADDITIONAL CHARGE TO THE PATIENT. BASIC METABOLIC [id number] 09:14:00* Test Item Value Reference Range Interpretation [...] code = CA) 10.4 mg/dL 8.5-10.1 H [id number] 09:14:00* Test Item Value Reference Range Interpretation Comments TROPONIN-I (test code = TROPI) <0.015 ng/mL 0-0.045 N BASIC METABOLIC [id number] 09:08:00* Test Item Value Reference Range Interpretation [...] CALCIUM (test code = CA) mg/dL 8.5-10.1 [id number] 09:08:00* Test Item Value Reference Range Interpretation Comments TROPONIN-I (test code = TROPI) ng/mL 0-0.045 URINALYSIS [id number] 09:05:00* Test Item Value Reference Range Interpretation [...] Urine Source? Clean CatchDRUGS OF ABUSE SCREEN [id number] 09:05:00* Test Item Value Reference Range Interpretation [...] (test code = [place]) <300 ng/mL PROTHROMBIN [id number] 09:05:00* Test Item Value Reference Range Interpretation [...] (2.5-3.5) IS PATIENT ON ANTICOAGULANTS? NTHROMBOPLASTIN TIME [id number] 09:05:00* Test Item Value Reference Range Interpretation Comments THROMBOPLASTIN TIME PARTIAL (test code = PTT) 36.8 seconds 25.0-36. 5 H IS PATIENT ON ANTICOAGULANTS? NCBC W/AUTO [id number] 08:57:00* Test Item Value Reference Range Interpretation [...] code = NRBC#) 0.00 K/mm3 0.0-0.1 N [id number] 07:52:00* Test Item Value Reference Range Interpretation Comments TROPONIN-I (test code = TROPI) <0.015 ng/mL 0-0.045 N COMMENTS TO TONGUE CARRIER: COLLECT 3 HOURS AFTER PREVIOUS [id number] 23:29:00* Test Item Value Reference Range Interpretation Comments TROPONIN-I (test code = TROPI) <0.015 ng/mL 0-0.045 N DRUGS OF ABUSE SCREEN [id number] 22:04:00* Test Item Value Reference Range Interpretation [...] NEGATIVE <300 ng/mL DRUGS OF ABUSE SCREEN [id number] 21:39:00* Test Item Value Reference Range Interpretation [...] code = [place]) <300 ng/mL - CTA [id number] 21:01:00 Name: JESÚSANGELA [facility] : 1975 Age/S: 43 / F [address] Unit #: [id number] Loc: [place] [address] Phys: Gaby Salazar MD Acct: [id number] Dis Date: Status: REG ER PHONE #: [phone] Exam Date: 06/20/20192049 FAX #: [phone] Reason: left sided weakness EXAMS: CPT CODE: [id number] CTA HEAD 60517 REASON FOR EXAM: left sided weakness EXAM ORDER DATE: 06/20/2019 8:18 PM Ordering: Gaby Salazar MD Attending:Gaby Salazar MD Location:[facility] PROCEDURE: - CTA HEAD COMPARISON: FINDINGS: Axial images of the head were obtained with IV contrast. Dose reduction techniques were applied. Reconstructed 3-D angiogram of the cerebral vessels as well as intraluminal vessel analysis were also provided for interpretation The visualized segment of the ICAs are unremarkable. The ACAs, MCAs, and supervisor speech are unremarkable. The basilar artery is within normal limits IMPRESSION: Unremarkable cerebral angiogram at 2100 Reported and signed by: Eliezer Pinto M.D. CC: Gaby Salazar MD Technologist:NAREN SLADE RT(R) CT CTDI: DLP: Trnscb Date/Time: 06/20/2019 (2100) t.SDR.VTL Orig Print D/T: S: 06/20/2019 (2103) PAGE 1 Signed Report - CTA [id number] 20:58:00 Name: ANGELA ESPINOSA [facility] : 1975 Age/S: 43 / F [address] [facility] Unit #: [id number] Loc: [place] [address] Phys: Rudy Salazar MD Acct: [id number] Di s Date: Status: REG ER PHONE #: Exam Date: 06/20/20192049 FAX #: Reason: left sided weakness EXAMS: CPT CODE: [id number] CTA NECK 92137 REASON FOR EXAM: left sided weakness EXAM ORDER DATE: 06/20/2019 8:18 PM Ordering: Gaby Salazar MD Attending:Gaby Salazar MD Locat ion:[facility] PROCEDURE: - CTA NECK COMPARISON: FINDINGS: Axial [...] M.D. CC: Gaby Salazar MD Techn ologist:NAREN SLADE, RT(R) CT CTDI: DLP: Trnscb Date/Andrzej e: 06/20/2019 (2057) t.SDR.VTL Orig Print D/T: S: 020 (2100) PAGE 1 Signed Report BASIC METABOLIC [id number] 19:15:00* Test Item Value Reference Range Interpretation [...] CA) 10.5 mg/dL 8.5-10.1 H HCG SERUM [id number] 19:15:00* Test Item Value Reference Range Interpretation Comments HCG SERUM QUAL (test code = HCGQL) NEGATIVE NEGATIVE This HCGQL test is NOT applicable for MALE patients.Check with nurse about probable order error.If Tumor Marker Test needed, nurse should order test "HCGTU"(Test #550.90440) [id number] 19:15:00* Test Item Value Reference Range Interpretation Comments TROPONIN-I (test code = TROPI) <0.015 ng/mL 0-0.045 N - XR CHEST 1 [id number] 19:14:00 FAX: Gaby Salazar MD [place]: St: REG Name: ANGELA DUPREE [facility] : [birth year] Age/S: 43/F [address] [facility] Unit #: [id number] Loc: [place] [address] Phys: Gaby Salazar MD Acct: [id number] Dis Date: Status: REG ER PHONE #: [phone] Exam Date: 06/20/20191912 FAX #: [phone] Reason: CODE STROKE EXAMS: CPT CODE: [id number] XR CHEST 1 V 72530 REASON FOR EXAM: CODE STROKE EXAM ORDER DATE: 06/20/2019 6:30 PM Ordering: Gaby Salazar MD Attending:Gaby Salazar MD Location:[facility] PROCEDURE: - XR CHEST 1 V COMPARISON: [...] Gaby Salazar MD Technologist: GODWIN JAEGER; Alex Rodriguez Ro sa, RT(R Trnscrd Date/Time/By: 06/20/2019 (1913) : By: AngelaR.VTL Orig Print D/T: S: 06/20/2019 (1916) PAGE [...] code = CA) mg/dL 8.5-10.1 HCG SERUM [id number] 19:09:00* Test Item Value Reference Range Interpretation Comments HCG SERUM QUAL (test code = HCGQL) NEGATIVE NEGATIVE This HCGQL test is NOT applicable for MALE patients.Check with nurse about probable order error.If Tumor Marker Test needed, nurse should order test "HCGTU"(Test #550.08210) [id number] 19:09:00* Test Item Value Reference Range Interpretation Comments TROPONIN-I (test code = TROPI) ng/mL 0-0.045 [id number] 19:06:00* Test Item Value Reference Range Interpretation [...] ANADDITIONAL CHARGE TO THE PATIENT. BASIC METABOLIC [id number] 19:00:00* Test Item Value Reference Range Interpretation [...] code = CA) mg/dL 8.5-10.1 HCG SERUM [id number] 19:00:00* Test Item Value Reference Range Interpretation Comments HCG SERUM QUAL (test code = HCGQL) NEGATIVE [id number] 19:00:00* Test Item Value Reference Range Interpretation Comments TROPONIN-I (test code = TROPI) ng/mL 0-0.045 PROTHROMBIN [id number] 18:57:00* Test Item Value Reference Range Interpretation [...] (2.5-3.5) IS PATIENT ON ANTICOAGULANTS? NTHROMBOPLASTIN TIME [id number] 18:57:00* Test Item Value Reference Range Interpretation Comments THROMBOPLASTIN TIME PARTIAL (test code = PTT) 36.9 seconds 25.0-36. 5 H IS PATIENT ON ANTICOAGULANTS? NCBC W/AUTO [id number] 18:57:00* Test Item Value Reference Range Interpretation [...] = MDIFF) NO - CT HEAD/BRAIN W/O [id number] 18:53:00 Name: ANGELA ESPINOSA [facility] : 1975 Age/S: 43 / F [address] [facility] Unit #: [id number] Loc: [place] [address] Phys: Gaby Salazar MD Acct: [id number] Dis Date: Status: PRE ER PHONE #: [phone] Exam Date: 06/20/2019 1843 FAX #: [phone] Reason: left arm weakness and facial weakness EXAMS: CPT CODE: [id number] CT HEAD/BRAIN W/O CONT 43289 REASON FOR EXAM: left arm weakness and facial weakness EXAM ORDER DATE: 06/20/2019 6:30 PM Ordering: Gaby Salazar MD Attending:Gaby Salazar MD Location:[facility] PROCEDURE: - CT HEAD/BRAIN W/O CONT COMPARISON: [...] calvarium is intact. IMPRESSION: Unremarkable brain. Dr. Saalzar was informed of the findings by telephone at at 6:53 PM. FOR INTERNAL CODING PURPOSES ONL Y RESULT CODE: CVR at 1853 Reported an d signed by: Eliezer Pinto M.D. CC: Gaby Salazar MD Technologist:Katie BOGGS(R); NAREN Lewis CTDI: DLP: Trnscb Date/Time: 06/20/2019 (1852) SilasVTL Orig P rint D/T: S: 06/20/2019 (1856) PAGE 1 Signed Report PROTHROMBIN [id number] 13:09:00* Test Item Value Reference Range Interpretation [...] Mechanical prosthetic heart valves (2.5-3.5) THROMBOPLASTIN TIME [id number] 13:09:00* Test Item Value Reference Range Interpretation Comments THROMBOPLASTIN TIME PARTIAL (test code = PTT) 34.8 seconds 25.0-36. 5 N [id number] 13:09:00* Test Item Value Reference Range Interpretation Comments FIBRINOGEN (test code = FIB) 296 mg/dL 200-400 N FIBRIN SPLIT [id number] 13:09:00* Test Item Value Reference Range Interpretation Comments FIBRIN SPLIT PRODUCT (test code = FSP) <5 ug/mL <5 Performed At: [facility] [id number] Paulson MD Ph:[phone] [id number] 13:09:00* Test Item Value Reference Range Interpretation Comments D-DIMER (test code = DDIMER) 526.00 ng/mLFEU 0-500 HH Results called to [id number] by V.LAB.LT 06/16/192015Critical results verified and read back by Nurse? [...] activity levels possibly masking a deficiency.Performed At: [facility] [id number] Paulson MD Ph:[phone] PROTHROMBIN [id number] 12:08:00* Test Item Value Reference Range Interpretation [...] Mechanical prosthetic heart valves (2.5-3.5) THROMBOPLASTIN TIME [id number] 12:08:00* Test Item Value Reference Range Interpretation Comments THROMBOPLASTIN TIME PARTIAL (test code = PTT) 34.8 seconds 25.0-36. 5 N [id number] 12:08:00* Test Item Value Reference Range Interpretation Comments FIBRINOGEN (test code = FIB) 296 mg/dL 200-400 N FIBRIN SPLIT [id number] 12:08:00* Test Item Value Reference Range Interpretation Comments FIBRIN SPLIT PRODUCT (test code = FSP) mcg/mL <5 [id number] 12:08:00* Test Item Value Reference Range Interpretation Comments D-DIMER (test code = DDIMER) 526.00 ng/mLFEU 0-500 HH Results called to [id number] by JENYLT 06/16/192015Critical results verified and read back by Nurse? [...] activity levels possibly masking a deficiency.Performed At: [facility] [id number] Sanjai MD Ph:[phone] SED [id number] 01:32:00* Test Item Value Reference Range Interpretation Comments SED RATE (test code = SEDW) 8 mm/hr 0-20 WINTROBE METHOD: NORMAL RANGE FOR MEN: 0-9 MM/HR WOMAN: 0-20 MM/HR [id number] RODNEYSED RATE [id number] 01:32:00* Test Item Value Reference Range Interpretation Comments SED RATE WESTERGREN (test code = SEDW) 8 mm/hr 0-20 N - CTA [id number] 22:30:00 Name: ANGELA ESPINOSA [facility] : 1975 Age/S: 43 / F [address] [facility] Unit #: [id number] Loc: [place] [address] Phys: Alexander Oviedo MD Acct: [id number] Dis Date: Status: ADM IN PHONE #: [phone] Exam Date: 06/16/2019 2200 FAX #: [phone] Reason: PE EXAMS: CPT CODE: [id number] CTA CHEST 63060 EXAM: CTA of the chest with contrast; [...] acute abnormalities. 2. Fatty liver. Location code: [facility] at 2230 Reported and signed by: Ismael Mckeon M.D. CC: Keenan Yuen MD; Vicente Bui MD; Alexander Oviedo MD Technologist:Katie BOGGS(R); NAREN Lewis CTDI: DLP: Trnscb Date/Time: 06/16/2019 (2229) t.MARCO ANTONIO.GRW Orig Print D/T: S: 06/16/2019 (2233) PAGE 1 Signed Report B-TYPE NATRIURETIC PEPTIDE 2019-06-16 21:53:00* Test Item Value Reference Range Interpretation Comments B-TYPE NATRIURETIC PEPTIDE (test code = BNP) 10.37 pgram/mL 0-100 N Has Patient received Natrecor? NOPROTHROMBIN [id number] 20:17:00* Test Item Value Reference Range Interpretation [...] Mechanical prosthetic heart valves (2.5-3.5) THROMBOPLASTIN TIME [id number] 20:17:00* Test Item Value Reference Range Interpretation Comments THROMBOPLASTIN TIME PARTIAL (test code = PTT) 34.8 seconds 25.0-36. 5 N [id number] 20:17:00* Test Item Value Reference Range Interpretation Comments FIBRINOGEN (test code = FIB) 296 mg/dL 200-400 N FIBRIN SPLIT [id number] 20:17:00* Test Item Value Reference Range Interpretation Comments FIBRIN SPLIT PRODUCT (test code = FSP) mcg/mL <5 [id number] 20:17:00* Test Item Value Reference Range Interpretation Comments D-DIMER (test code = DDIMER) 526.00 ng/mLFEU 0-500 HH Results called to [id number] by V.LAB.LT 06/16/19 2016Critical results verified and [...] % 75-135 - XR KNEE 3 V [id number] 15:21:00 FAX: Keenan Yuen [phone] [place]: B St: ADM FAX: Marino Abbott [phone] Name: ANGELA ESPINOSA [facility] : 1975 Age/S: 43/F [address] [facility] Unit #: [id number] Loc: V.2090 [place] [address] Phys: Keenan Yuen MD Acct: [id number] Dis Date: Status: ADM IN PHONE #: [phone] Exam Date: 06/16/2019 1453 FAX #: [phone] Reason: POSSIBLE INJURY POST FALL EXAMS: CPT CODE: [id number] XR KNEE 3 V LT [address] EXAM: Left knee, 4 views; INFORMATION: Trauma; knee pain after fall; FINDINGS: Normal shape and structure of the imaged bones; no evidence of fracture or dislocation; no soft ti ssue abnormalities. IMPRESSION: No evidence of acute oss eous trauma or other pathological changes. No radiopaque foreign body. Location code: [facility] at 1521 Reported and signed by: Ismael Mckeon M.D. CC: Keenan Yuen MD; Vicente Bui MD Te chnologist: RT JAYESH(R) Trnscrd Date/ Time/By: 06/16/2019 (1521) : By: SilasGRW Orig Print D/T: S: 06/16/19 20 (7392) PAGE 1 Signed Report - [facility] HD W/O [id number] 12:47:00 FAX: Preethi Tavarez [phone] [place]: St: ADM FAX: Keenan Yuen [phone] FAX: Marino Abbott --------- Name: ANGELA ESPINOSA [facility] : 1975 Age/S: 43/F [address] it #: [id number] Loc: V.20[address] [place] [address] Phys: Keenan Yuen MD Acct: [id number] Dis Date: Status: ADM IN ONE #: [phone] Exam Date: 06/16/2019 1210 FAX #: [phone] Reason: weakness, slurred speech EXAMS: CPT CODE: [id number] MR A HD W/O CONT 92723 HISTORY: Left- sided paresthesia slurred speech. COMPARISON: None available. Location: [facility]. MRA [place] without contrast: 3-D images. Basilar artery is widely patent. Superior cerebellar art eries are patent. NOTCHING MACHINE OPERATOR are widely patent bilaterally. Posterior communicati ng arteries are absent. Anterior communicating artery is patent. Bilateral petrous, cavernous and supraclinoid ICA remains patent. Jaswinder ateral HENNA are widely patent. Both MCA are widely patent. No aneurysm visi ble. IMPRESSION: Patent [place] with the exception of posterior communicating arteries. No aneurysm is visibl e. at 1247 Reported and signed by: Shade Alcazar M.D. CC: Preethi Yin MD; Keenan Yuen MD; Vicente Waldrop MD Technologist: Opal Mccollum)(MR) Trnscrd Date/Time/By: 06/16 (9678) : By: SilasTH4 Orig Print D/T: S: 06/16/2019 (6243) PAGE 1 Signed Report - MRA NECK W WO [id number] 12:40:00 FAX: Preethi Tavarez [phone] [place]: St: ADM FAX: Keenan Yuen [phone] FAX: Marino Abbott [phone] Name: ANGELA ESPINOSA [facility] : 1975 Age/S: 43/F [address] Unit #: [id number] Loc: V.2090 [place] [address] Phys: Keenan Yuen MD Acct: [id number] Dis Date: Status: ADM IN ONE #: [phone] Exam Date: 06/16/2019 1211 FAX #: [phone] Reason: weakness, slurred speech EXAMS: CPT CODE: [id number] MR A NECK W WO CONT [id number] HISTORY: Weakn ess and slurred speech. COMPARISON: None available. MRA neck without contrast: 3-D images. Location: [facility]. Note: Motion limited study. Bilateral vertebral arteries [...] MD Technologist: Yeimi Mccollum)(MR) Trnscrd Date/Time/By: 06/16/2019 (1240) : By: Silas TH4 Orig Print D/T: S: 06/16/2019 (1169) PAGE 1 Signed Report - MRI BRAIN W/O [id number] 12:28:00 FAX: Keagan LillyPreethi melendez [phone] [place]: St: ADM FAX: Keenan Yuen [phone] FAX: Jc Marino Bui [phone] Name: ANGELA ESPINOSA [facility] : 1975 Age/S: 43/F [address] [facility] Unit #: [id number] Loc: V.2090 [facility] [place] [address] Phys: Keenan Yuen MD Acct: [id number] Dis Date: Status: ADM IN ONE #: [phone] Exam Date: 06/16/2019 1209 FAX #: [phone] Reason: Syncope and collapse, r/o CVA EXAMS: CPT CODE: [id number] MR I BRAIN W/O CONTRAST 88227 HISTORY: CVA. COMPARISON: Head CT from previous day. MRI brain wit hout contrast: Automated exposure control. Location: [facility]. No acute territorial vascular or acute lacunar [...] echnologist: Yeimi Templeton(R)(MR) Trnscrd Date /Time/By: 06/16/2019 (3541) : By: [email or web address] Orig Print D/T: S: 020 (9638) PAGE 1 Signed Report URINALYSIS [id number] 10:17:00* Test Item Value Reference Range Interpretation [...] Source? Clean Catch DRUGS OF ABUSE SCREEN [id number] 10:17:00* Test Item Value Reference Range Interpretation [...] <300 ng/mL Urine Source? Clean Catch URINALYSIS [id number] 10:14:00* Test Item Value Reference Range Interpretation [...] Source? Clean Catch DRUGS OF ABUSE SCREEN [id number] 10:14:00* Test Item Value Reference Range Interpretation [...] <300 ng/mL Urine Source? Clean Catch URINALYSIS [id number] 09:51:00* Test Item Value Reference Range Interpretation [...] W REFLEX (test code = LEUUR) 25 Rha/uL (Trace) Rah/uL NEGATIVE A UA WBC (test code = WBCU) per HPF 0-5 UA RBC (test code = RBCU) per HPF 0-5 UA EPITHELIAL CELLS (test code = EPIU) per HPF Few UA BACTERIA (test code = BACU) per HPF NONE Urine Source? Clean Catch DRUGS OF ABUSE SCREEN [id number] 09:51:00* Test Item Value Reference Range Interpretation [...] [place]) <300 ng/mL Urine Source? Clean Catch [id number] 07:02:00* Test Item Value Reference Range Interpretation Comments GLUBED (test code = GLUBED) 80 mg/dL 65-110 N BASIC METABOLIC [id number] 06:14:00* Test Item Value Reference Range Interpretation [...] result is a direct measurement.========= BASIC METABOLIC [id number] 05:54:00* Test Item Value Reference Range Interpretation [...] code = LDL) mg/dL 100-129 CBC W/AUTO [id number] 05:32:00* Test Item Value Reference Range Interpretation [...] DIFF REQUIRED (test code = MDIFF) NO [id number] 00:50:00* Test Item Value Reference Range Interpretation Comments TROPONIN-I (test code = TROPI) <0.015 ng/mL 0-0.045 N [id number] 19:37:00* Test Item Value Reference Range Interpretation Comments TROPONIN-I (test code = TROPI) <0.015 ng/mL 0-0.045 N COMPREHENSIVE METABOLIC [id number] 17:02:00* Test Item Value Reference Range Interpretation [...] reference range due to change in reagent. [id number] 17:02:00* Test Item Value Reference Range Interpretation Comments MAGNESIUM (test code = MAG) 2.0 mg/dL 1.8-2.4 N THYROID STIMULATING [id number] 17:02:00* Test Item Value Reference Range Interpretation Comments THYROID STIMULATING HORMONE (test code = TSH) 0.777 uIU/mL 0.36-3.7 4 N TSH REFERENCE RANGES: EUTHYROID: 0.35 - 4.3 mIU/mL HYPO : > 5.5 mIU/mL HYPER : < 0.35 mIU/mL [id number] 16:53:00* Test Item Value Reference Range Interpretation Comments TROPONIN-I (test code = TROPI) <0.015 ng/mL 0-0.045 N [id number] 16:51:00* Test Item Value Reference Range Interpretation Comments GLYCOSYLATED HEMOGLOBIN (HA1C) (test code = GLYHGB) 5.4 % HbA1 SUGGESTED DIAGNOSIS: HbA1C (%) Diabetic >6.4Prediabetes 5.7 - 6.4Normal <5.7 ESTIMATED AVERAGE GLUCOSE (test code = EAG) 108 MG/DL COMPREHENSIVE METABOLIC [id number] 16:50:00* Test Item Value Reference Range Interpretation [...] TOTAL (test code = ALKP) IUnit/L 45-117 [id number] 16:50:00* Test Item Value Reference Range Interpretation Comments MAGNESIUM (test code = MAG) mg/dL 1.8-2.4 THYROID STIMULATING [id number] 16:50:00* Test Item Value Reference Range Interpretation Comments THYROID STIMULATING HORMONE (test code = TSH) uIU/mL 0.36-3.7 4 PROTHROMBIN [id number] 16:43:00* Test Item Value Reference Range Interpretation [...] (2.5-3.5) IS PATIENT ON ANTICOAGULANTS? NTHROMBOPLASTIN TIME [id number] 16:43:00* Test Item Value Reference Range Interpretation Comments THROMBOPLASTIN TIME PARTIAL (test code = PTT) 36.0 seconds 25.0-36. 5 N IS PATIENT ON ANTICOAGULANTS? NCBC W/AUTO [id number] 16:29:00* Test Item Value Reference Range Interpretation [...] = MDIFF) NO - XR CHEST 2 [id number] 14:38:00 FAX: Preethi Tavarez [phone] [place]: B St: ADM FAX: Marino Abbott [phone] FAX: Jocelin Cespedes NP Name: ANGELA ESPINOSA [facility] : 1975 Age/S: 43/F [address] [facility] Unit #: [id number] Loc: V.2090 [place] [address] Phys: Jocelin Cespedes NP Acct: [id number] Dis Date: Status: ADM IN ONE #: [phone] Exam Date: 06/15/2019 1422 FAX #: [phone] Reason: Syncope and collapse, r/o CVA; Chest pain EXAMS: CPT CODE: [id number] XR CHEST 2 V 92633 EXAM: Chest X- ray, 2 views; CLINICAL HISTORY: Chest pain; FINDINGS : Except for mild basilar atelectatic changes, the lungs are clear, no infiltrates, no edema; no effusions; no pneumothorax; normal ca rdiomediastinal silhouette. IMPRESSION: Mild basilar at electasis; otherwise, no evidence of active cardiopulmonary disease. Location code: [facility] at 1438 Reported and signed by: Ismael Mckeon M.D. CC: Preethi Yin MD; Vicente Bui MD; Jocelin Cespedes NP Techno logist: HATTIE KEY RT (R) Trnscrd Date/Time /By: 06/15/2019 (1438) : By: SilasGRW Orig Print D/T: S: 06/16/2019 ( 0823) PAGE 1 Signed Report DRUGS OF ABUSE [id number] 10:12:00* Test Item Value Reference Range Interpretation Comments UR COCAINE (test code = COCAU) NEGATIVE NEGATIVE DETECTION CUT OFF: 150 ng/mL UR CANNABINOIDS (test code = CANU) POSITIVE NEGATIVE A RESULTS CALLED TO READ BACK & CONFIRMED? YES.BY [email or web address] 06/15/19 1012. DETECTION CUT OFF: 50 ng/mL UR AMPHETAMINE (test code = AMPHU) NEGATIVE NEGATIVE DETECTION CUT OFF: 500 ng/mL UR BARBITURATE QUAL (test code = BARBQLU) NEGATIVE NEGATIVE DETECTION CUT OFF: 200 ng/mL UR BENZODIAZEPINE (test code = BENZU) POSITIVE NEGATIVE A RESULTS CALLED TO JORGE.READ BACK & CONFIRMED? YES.BY JOSE.[email or web address] 06/15/19 1012. DETECTION CUT OFF: 150 ng/mL UR OPIATES QUAL (test code = OPIAQLU) NEGATIVE NEGATIVE DETECTION CUT OFF: 100 ng/mL UR PHENCYCLIDINE (PCP) (test code = PHENCU) NEGATIVE NEGATIVE DETECTION CUT OFF: 25 ng/mL Specimen Comment: CLEAN CATCH. COMPREHENSIVE METABOLIC [id number] 10:12:00 * Test Item Value Reference Range [...] code = ALKP) 107 units/L 46-116 N [id number] 10:12:00* Test Item Value Reference Range Interpretation Comments TROPONIN-I (test code = TROPI) <0.017 ng/mL <0.056 N BENZODIAZEPINE [id number] 10:12:00* Test Item Value Reference Range Interpretation Comments OXAZEPAM (test code = OXAZ) TEMAZEPAM (test code = CLAUDE) FLURAZEPAM (test code = FLUR) UA RFLX MICR CULT IF [id number] 10:07:00* Test Item Value Reference Range Interpretation [...] Comment: 3Indication for culture: Suprapubic PainCOMPREHENSIVE METABOLIC [id number] 10:06:00* Test Item Value Reference Range Interpretation [...] code = ALKP) 107 units/L 46-116 N [id number] 10:06:00* Test Item Value Reference Range Interpretation Comments TROPONIN-I (test code = TROPI) <0.017 ng/mL <0.056 N PROTHROMBIN [id number] 10:06:00* Test Item Value Reference Range Interpretation Comments PROTHROMBIN TIME PATIENT (test code = PTP) 11.6 secs 10.4-12.4 N IS PATIENT ON ANTICOAGULANTS ? NINTERNATIONAL NORMAL [id number] 10:06:00* Test Item Value Reference Range Interpretation [...] IS PATIENT ON ANTICOAGULANTS ? NTHROMBOPLASTIN TIME [id number] 10:06:00* Test Item Value Reference Range Interpretation Comments THROMBOPLASTIN TIME PARTIAL (test code = PTT) 40.9 secs 22-38 H IS PATIENT ON ANTICOAGULANTS ? ND-DIMER [id number] 10:06:00* Test Item Value Reference Range Interpretation Comments D-DIMER QUANT (test code = DDIMER) <200 ng/mLDDU <255 Reference Range in : <570 ng/mlA positive test does not provide a definitive diagnosis ofDVT and indicates the need for follow up clinical studies. The predictive value of a negative test is 98% for rulingout DVT. IS PATIENT ON ANTICOAGULANTS ? [id number] 10:03:00* Test Item Value Reference Range Interpretation Comments ALCOHOL (test code = ALC) 0 mg/dL < 3 TH IS RESULT IS FOR MEDICAL PURPOSES ONLY The pharmacological response to blood alcohol levels mayvary from individual to individual. Signs of intoxicationcan be observed at levels of 50-100 mg/dL UA RFLX MICR CULT IF [id number] 09:57:00* Test Item Value Reference Range Interpretation [...] for culture: Suprapubic Pain- CT HEAD/BRAIN W/O [id number] 09:51:00 Patient Name: ANGELA ESPINOSA Unit No: [id number] EXAMS: CPT CODE: [id number] CT HEAD/BRAIN W/O CONT 16984 STUDY: - CT HEAD/BRAIN W/O CONT 06/15/2019 9:19 AM Ordering Physician: Leslie Forrest MD Patient Name: ANGELA ESPINOSA MR: [id number] : 1975; Age: 43 years y/o Female [...] acute fracture or suspicious osseous lesion. The [facility] NAME: ANGELA ESPINOSA Radiology Department PHYS: [email or web address] - Leslie Forrest MD [address] : 1975 AGE: 43 SEX: F [place], [place] [address] LOC: ALIVIA Lopes [facility] #: [phone] EXAM DATE: 06/15/2019 STATUS: REG ER FAX #: [phone] RAD NO: Page 1 Sig jack Report 1 Patient Name: ANGELA ESPINOSA Unit No: [id number] EXAMS: CPT CODE: [id number] CT HEAD/BRAIN W/O CONT 19302 <Continued> IMPRESSION: No acute intracranial abnormality. Communication of findings initiated at 9:40 AM 06/15/2019 by telephone. Findings discussed with Dr. Forrest at 9:48 AM 06/15/2019 by telephone. SL: [id number] at 0951 Reported and signed by: Sony Encarnacion MD CC: Vicente Quispe MD; Leslie Forrest MD Technologist: Anni Gaona, RT, CT CTDI: 49.75 DLP: 904.25 Trnscrbd D/ (0951) [email or web address] [facility] NAME: JESÚSISMAELANGELA Radiology Department PHYS: Leslie Levy MD [address] : 1975 AGE: 43 SEX: F [place] [address] LOC: F.ERS PHONE #: [phone] EXAM DATE: 06/15/2019 STATUS: REG ER FAX #: [phone] RAD NO: Page 2 Signed Report 1 Patient Name: ANGELA ESPINOSA Unit No: [id number] EXAMS: CPT CODE: [id number] CT HEAD/BRAIN W/O CONT 08288 <Continued> Orig Print D/T: S: 06/15/2019 (0954) [facility] NAME: [facility] Radiology Department PHYS: Leslie Levy MD [address] : 1975 AGE: 43 SEX: F [place] [address] LOC: F.ERS PHONE #: [phone] EXAM DATE: 06/15/2019 STATUS: REG ER FAX #: [phone] RAD NO: Page 3 Si gned Report 1 - XR CHEST 1 [id number] 09:43:00 Patient Name: ANGELA ESPINOSA Unit No: [id number] EXAMS: CPT CODE: [id number] XR CHEST 1 V 61727 CLINICAL HISTORY:CODE S TROKE COMPARISON:June 14, 2019 [...] MD; Leslie Forrest MD Technologist: Wilma Quinn, RT Trnscrbd D/ (0943) SilasYOS Orig Print D/T: S: 06/15/2019 (1002) [facility] NAME: ANGELA ESPINOSA Radiology Department PHYS: Leslie Levy MD [address] : 1975 AGE: 43 SEX: F [place], [place] [address] LOC: F.ERS PHONE #: [phone] EXAM MARKUS E: 06/15/2019 STATUS: REG ER FAX #: [phone] RAD NO: Page 1 Signed Report CBC W/AUTO [id number] 09:37:00* Test Item Value Reference Range Interpretation [...] (test code = PLTMR) NORMAL YOANA L [id number] 15:44:00* Test Item Value Reference Range Interpretation Comments TROPONIN-I (test code = TROPI) <0.015 ng/mL 0-0.045 N [id number] 15:11:00* Test Item Value Reference Range Interpretation Comments GLUBED (test code = GLUBED) 73 mg/dL 74-106 L Performed by certified flash welding machine operator at [facility] [id number] 12:29:00* Test Item Value Reference Range Interpretation Comments GLUBED (test code = GLUBED) 72 mg/dL 74-106 L Performed by certified flash welding machine operator at [facility] - CTA [id number] 12:00:00 Name: ANGELA ESPINOSA [facility] : 1975 Age/S: 43 / F [address] [facility] Unit #: [id number] Loc: [place] [address] Phys: Donn Roe MD Acct: [id number] Dis Date: Status: REG ER PHONE #: [phone] Exam Date: 06/14/2019 1120 FAX #: [phone] Reason: L .sided weakness EXAMS: CPT CODE: [id number] CTA NECK 92027 HISTORY: Left-sided weakness. COMPARISON: None available. Note: [...] bilateral vertebral arteries with left dominance. CTA [place]: 3-D images. The basilar artery is widely patent. Both NOTCHING MACHINE OPERATOR are widely patent. Both superior cerebellar arteries are widely patent. Both posterior communicating arteries are absent. Anterior communicating artery is absent. Bilateral petrous, cavernous and the supraclinoid ICA are widely patent. Both HENNA are widely patent. Both MCA are widely patent. No aneurysm is visible. Dural sinuses are opacified. IMPRESSION: PAGE 1 Signed Report (CONTINUED) Name: ANGELA ESPINOSA [facility] : 1975 Age/S: 43 / F [address] [facility] Unit #: [id number] Loc: [place] [address] Phys: Donn Roe MD Acct: [id number] Dis Date: Status: REG ER PHONE #: [phone] Exam Date: 06/14/2019 1120 FAX #: [phone] Reason: L .sided weakness EXAMS: CPT CODE: [id number] CTA NECK 63956 < Continued> Patent [place] with the exception of anterior posterior communicating arteries which are absent. No aneurysm is visible. at 1200 Reported and signed by: Shade Alcazar M.D. CC: Vicente Bui MD; Donn Roe MD Technologist:Elayne Forrest,RT(R),CT CTDI: DLP: Trnlorettab Date/Time: 06/14/2019 (1200) [email or web address] Orig Print D/T: S: 06/14/2019 (7809) PAGE 2 Signed Report - CTA [id number] 12:00:00 Name: ANGELA ESPINOSA [facility] : 1975 Age/S: 43 / F [address] Unit #: [id number] Loc: [place] [address] Phys: Donn Roe MD Acct: [id number] Dis Date: Status: REG ER PHONE #: [phone] Exam Date: 06/14/2019 1120 FAX #: [phone] Reason: L .sided weakness EXAMS: CPT CODE: [id number] CTA HEAD 86835 HISTORY: Left-sided weakness. COMPARISON: None available. Note: [...] bilateral vertebral arteries with left dominance. CTA [place]: 3-D images. The basilar artery is widely patent. Both NOTCHING MACHINE OPERATOR are widely pat ent. Both superior cerebellar arteries are widely patent. Both posterior communicating arteries are absent. Anterior communicating artery is absent. Bilateral petrous, cavernous and the supraclinoid ICA are widely patent. Both HENNA are widely patent. Both MCA are widely patent. No aneurysm is visible. Dural sinuses are opacified. IMPRESSION: PAGE 1 Signed Report (CONTINUED) Name: ANGELA ESPINOSA [facility] : 1975 Age/S: 43 / F [address] Unit #: [id number] Loc: [place] [address] Phys: Donn Roe MD Acct: [id number] Dis Date: Status: REG ER PHONE #: [phone] Exam Date: 06/14/2019 1120 FAX #: [phone] Reason: L .sided weakness EXAMS: CPT CODE: [id number] CTA HEAD 83902 < Continued> Patent [place] with the exception of anterior posterior communicating arteries which are absent. No aneurysm is visible. at 1200 Reported and signed by: Shade Alcazar M.D. CC: Vicente Bui MD; Donn Roe MD Technologist:Elayne Forrest,RT(R),CT CTDI: DLP: Trnscb Date/Time: 06/14/2019 (1200) t.[email or web address] Orig Print D/T: S: 06/14/2019 (7365) PAGE 2 Signed Report BASIC METABOLIC [id number] 11:49:00* Test Item Value Reference Range Interpretation [...] CA) 9.0 mg/dL 8.5-10.1 N HCG SERUM [id number] 11:49:00* Test Item Value Reference Range Interpretation Comments HCG SERUM QUAL (test code = HCGQL) NEGATIVE NEGATIVE This HCGQL test is NOT applicable for MALE patients.Check with nurse about probable order error.If Tumor Marker Test needed, nurse should order test "HCGTU"(Test #[id number]) [id number] 11:49:00* Test Item Value Reference Range Interpretation Comments TROPONIN-I (test code = TROPI) <0.015 ng/mL 0-0.045 N BASIC METABOLIC [id number] 11:46:00* Test Item Value Reference Range Interpretation [...] CA) 9.0 mg/dL 8.5-10.1 N HCG SERUM [id number] 11:46:00* Test Item Value Reference Range Interpretation Comments HCG SERUM QUAL (test code = HCGQL) NEGATIVE [id number] 11:46:00* Test Item Value Reference Range Interpretation Comments TROPONIN-I (test code = TROPI) <0.015 ng/mL 0-0.045 N BASIC METABOLIC [id number] 11:44:00* Test Item Value Reference Range Interpretation [...] code = CA) mg/dL 8.5-10.1 HCG SERUM [id number] 11:44:00* Test Item Value Reference Range Interpretation Comments HCG SERUM QUAL (test code = HCGQL) NEGATIVE [id number] 11:44:00* Test Item Value Reference Range Interpretation Comments TROPONIN-I (test code = TROPI) ng/mL 0-0.045 - XR CHEST 1 [id number] 11:43:00 FAX: Marino Abbott [phone] [place]: St: PRE FAX: Donn Roe MD Name: ANGELA ESPINOSA [facility] : 1975 Age/S: 43/F [address] [facility] Unit #: [id number] Loc: [place] [address] Phys: Donn Roe MD Acct: [id number] Dis Date: Status: PRE ER PHONE #: [phone] Exam Date: 06/14/2019 1124 FAX #: [phone] Reason: CODE STROKE EXAMS: CPT CODE: [id number] XR CHEST 1 V 45846 HISTORY: Stroke. COMPARISON: April 11, 2019. Location: [facility]. No acute infiltrates, effusion or congestion is noted. Suboptimal inspiration with dependent changes. Mild cardiomegaly. IMPRESSION: No acute infiltrates, effusion or congestion. at 1143 Reported and signed by: Shade Alcazar M.D. CC: Vicente Bui MD; Donn Roe MD Technologist: Reba Gaitan RT(R) Trnscrd Date/Time/By: 06/14/2019 (0040) : By: [email or web address] Orig Print D/T: S: 06/14/2019 (7375) PAGE 1 Signed Report PROTHROMBIN [id number] 11:29:00* Test Item Value Reference Range Interpretation [...] (2.5-3.5) IS PATIENT ON ANTICOAGULANTS? NTHROMBOPLASTIN TIME [id number] 11:29:00* Test Item Value Reference Range Interpretation Comments THROMBOPLASTIN TIME PARTIAL (test code = PTT) 36.1 seconds 25.0-36. 5 N IS PATIENT ON ANTICOAGULANTS? NCBC W/AUTO [id number] 11:24:00* Test Item Value Reference Range Interpretation [...] K/mm3 0.0-0.1 N - CT HEAD/BRAIN W/O [id number] 11:24:00 Name: ANGELA ESPINOSA [facility] : 1975 Age/S: 43 / F [address] Unit #: [id number] Loc: [place] [address] Phys: Donn Roe MD Acct: [id number] Dis Date: Status: PRE ER PHONE #: [phone] Exam Date: 06/14/2019 1120 FAX #: [phone] Reason: weakness, slurred speech EXAMS: CPT CODE: [id number] CT HEAD/BRAIN W/O CONT 20099 HISTORY: Weakness and slurred speech. COMPARISON: September 20, 2014. CT brain without contrast: Automated exposure control. Location: [facility]. No acute intracranial bleeds or extra-axial collections [...] Technologist:Elayne Forrest,RT(R),CT CTDI: DLP: Trnscb Date/Time: 06/14/2019 (1124) [email or web address] Orig Print D/T: S: 06/14/2019 (112) PAGE 1 Signed Report [id number] 10:18:00* Test Item Value Reference Range Interpretation Comments D-DIMER (test code = DDIMER) < 500 ng/mL 0-500 N THE DDIMER METHOD IS USED IN THE EXCLUSION OF DEEP VEINTHROMBOSIS AND/OR PULMONARY EMBOLISM AND THE CLINICAL CUT-OFF VALUE FOR EXCLUSION (500 NG/ML FEU) OF THESE CONDITIONSIS VALIDATED BY THE DOVETAILER OF THE METHOD. A NEGATIVE DDIMER RESULT WHEN COMBINED WITH A CLINICALASSESSMENT OF LOW PRETEST PROBABILITY HAS BEEN SHOWN TO HAVEA HIGH NEGATIVE PREDICTIVE VALUE OF DVT OR PE. D-DIMER VALUES >500 ng/mL ARE NOT DIAGNOSTIC FOR DVT,PEOR DIC WITHOUT OTHER CONFIRMATORY TESTS AND APPROPRIATECLINICAL EVALUATIONS. CBC W/AUTO [id number] 07:57:00* Test Item Value Reference Range Interpretation [...] 0.03 x10 3/uL 0.0-0.20 N TROPONIN I [id number] 07:55:00* Test Item Value Reference Range Interpretation Comments TROPONIN I RAPID (test code = TROPIRAP) 0.01 ng/mL 0.00-0.08 N - The use of serial sampling and testing protocol is a recommended practice- An elevated tropnin level alone is often not sufficient for diagnosis of myocardial infarction. CHEMISTRY 8 [id number] 07:50:00* Test Item Value Reference Range Interpretation [...] GFRP) 92 58-1 35 N CHEMISTRY 8 [id number] 07:50:00* Test Item Value Reference Range Interpretation [...] 58-1 35 N - XR CHEST 1 [id number] 07:39:00Patient Name: ANGELA ESPINOSA Unit No: [id number] EXAMS: CPT CODE: [id number] XR CHEST 1 V 09836 Chest Radiograph History: chest pain Comparison: February [...] Printed Date/Time: 06/12/2019 (0742) Name: ANGELA ESPINOSA [facility] Phys: Tom Cain [address] : 1975 Age: 43 Sex: [place] [address] Loc: P.ERS Exam Date: 06/12/2019 Status: REG [...] CA) 8.6 mg/dL 8.5-10.1 N HEPATIC FUNCTION [id number] 10:07:00* Test Item Value Reference Range Interpretation [...] reference range due to change in reagent. [id number] 10:07:00* Test Item Value Reference Range Interpretation Comments LIPASE (test code = LIP) 89 U/L 73.0-393.0 N CBC W/O [id number] 09:48:00* Test Item Value Reference Range Interpretation [...] = MPV) 9.0 fL 6.7-11.0 N - RETRO [id number] 09:48:00 Name: ANGELA ESPINOSA [facility] : 1975 Age/S: 43 / F [address] [facility] Unit #: [id number] Loc: [place] [address] Phys: Briseyda Bailey NP Acct: [id number] Dis Date: Status: REG ER PHONE #: [phone] Exam Date: 05/25/2019919 FAX #: [phone] Reason: LEFT CVA TENDERNESS EXAMS: CPT CODE: [id number] RETRO LTD 88505 EXAM: Ultrasound retroperitoneum, limited; INFORMATION: Left CVA [...] 2. Otherwise, unremarkable renal ultrasound. Location code: [facility] at 0948 Reported and signed by: Ismael Mckeon M.D. CC: Birseyda Bailey NP; Vicente Bui MD Technologist: OUSMANE CRISTINA RT(R),RDMS Trnscb Date/Time: 05/25/2019 (947) Dayna Orig Print D/T: S: 05/25/2019 (0951) Probe: PAGE 1 Signed Report CBC W/O [id number] 09:45:00* Test Item Value Reference Range Interpretation [...] (test code = MPV) fL 6.7-11.0 URINALYSIS [id number] 09:20:00* Test Item Value Reference Range Interpretation [...] FEW #/LPF FEW Urine Source? Clean CatchURINALYSIS [id number] 09:19:00* Test Item Value Reference Range Interpretation [...] #/HPF NONE Urine Source? Clean CatchCBC W/AUTO [id number] 15:45:00* Test Item Value Reference Range Interpretation [...] = PLTMR) NORMAL YOANA L CHEMISTRY 7 [id number] 15:41:00* Test Item Value Reference Range Interpretation [...] 8.8 mg/dL 8.4-10.2 N DRUGS OF ABUSE [id number] 09:21:00* Test Item Value Reference Range Interpretation [...] DETECTION CUT OFF: 25 ng/mL COMPREHENSIVE METABOLIC [id number] 09:21:00* Test Item Value Reference Range Interpretation [...] code = ALKP) 107 units/L 46-116 N [id number] 09:21:00* Test Item Value Reference Range Interpretation Comments LIPASE (test code = LIP) 97 units/L 73-393 N BENZODIAZEPINE [id number] 09:21:00* Test Item Value Reference Range Interpretation Comments OXAZEPAM (test code = OXAZ) TEMAZEPAM (test code = CLAUDE) FLURAZEPAM (test code = FLUR) COMPREHENSIVE METABOLIC [id number] 09:17:00* Test Item Value Reference Range Interpretation [...] code = ALKP) 107 units/L 46-116 N [id number] 09:17:00* Test Item Value Reference Range Interpretation Comments LIPASE (test code = LIP) 97 units/L 73-393 N UA RFLX MICR CULT IF [id number] 09:08:00* Test Item Value Reference Range Interpretation [...] OCCASIONAL Indication for culture: Suprapubic PainUR HCG [id number] 09:08:00* Test Item Value Reference Range Interpretation Comments UR HCG QUAL (test code = HCGQLU) NEGATIVE 1. Very dilute urine specimens, as indicated by a lowspecific gravity, may not contain member services representative levels ofhCG. 2. False negative results may occur when the levels of hCGare below the sensitivity level of the test. If is still suspected, a first morningurine specimen should be collected 48 hours later andtested. Indication for culture: Suprapubic PainCBC W/AUTO [id number] 09:02:00* Test Item Value Reference Range Interpretation [...] YOANA L UA RFLX MICR CULT IF [id number] 09:02:00* Test Item Value Reference Range Interpretation [...] RARE-FEW Indication for culture: Suprapubic PainUR HCG [id number] 09:02:00* Test Item Value Reference Range Interpretation Comments UR HCG QUAL (test code = HCGQLU) NEGATIVE 1. Very dilute urine specimens, as indicated by a lowspecific gravity, may not contain member services representative levels ofhCG. 2. False negative results may occur when the levels of hCGare below the sensitivity level of the test. If is still suspected, a first morningurine specimen should be collected 48 hours later andtested. Indication for culture: Suprapubic PainUrine [id number] 08:00:00* Test Item Value Reference Range Interpretation Comments Urine WBC (test code = 5821-4) 0-5 0-5 [facility] [id number] 08:00:00* Test Item Value Reference Range Interpretation Comments Urine RBC (test code = 09938-8) 0-5 0-5 [facility] Sqfemhsu4900-44-27 08:00:00* Test Item Value Reference Range Interpretation Comments Urine Bacteria (test code = 72200-6) FEW NONE [facility] Epithelial Cnuhd6193-29-36 08:00:00 * Test Item Value Reference Range Interpretation Comments Urine Epithelial Cells (test code = 11910-5) RARE NONE [facility] Opiates Yzyrqr0506-19-05 07:51:00* Test Item Value Reference Range Interpretation Comments Urine Opiates Screen (test code = 49791-8) NEGATIVE NEGATIVE ALL TESTS PERFORMED MANUALLY ON [employer] TOX/SEE TESTB[facility]neyUrine Barbiturates Tzfqup3596-22-91 07:51:00* Test Item Value Reference Range Interpretation Comments Urine Barbiturates Screen (test code = 465729218) NEGATIVE NEGA TIVE [facility] Phencyclidine Ndsnth4687-48-61 07:51:00* Test Item Value Reference Range Interpretation Comments Urine Phencyclidine Screen (test code = 60099-8) NEGATIVE NEGAT HENRY [facility] Amphetamines Yepbou6190-68-46 07:51:00* Test Item Value Reference Range Interpretation Comments Urine Amphetamines Screen (test code = 96677-1) NEGATIVE NEGATI VE [facility] Methamphetamines Mrtcmq9689-15-50 07:51:00* Test Item Value Reference Range Interpretation Comments Urine Methamphetamines Screen (test code = Urine Metha mphetamines Screen) NEGATIVE NEGATIVE [facility] Benzodiazepines Resywv8872-98-74 07:51:00* Test Item Value Reference Range Interpretation Comments Urine Benzodiazepines Screen (test code = 08052-0) POSITIVE NEG ATIVE H This test provides only a screen. Positive results should be repeated by a confi rmatory test.[facility] Cocaine Screen 2019-04-28 07:51:00* Test Item Value Reference Range Interpretation Comments Urine Cocaine Screen (test code = 3398-5) NEGATIVE NEGATIVE [facility] Cannabinoids Dlsvki6735-19-24 07:51:00* Test Item Value Reference Range Interpretation Comments Urine Cannabinoids Screen (test code = 51735-9) POSITIVE NEGATI VE H This test provides only a screen. Positive results should be repeated by a confi rmatory test.[facility] Methadone Screen 2019-04-28 07:51:00* Test Item Value Reference Range Interpretation Comments Urine Methadone Screen (test code = 41357-0) NEGATIVE NEGATIVE THESE RESULTS ARE FOR MEDICAL TREATMENT ONLYTHIS REPORT CONTAINS UNCONFIR MED SCREENING RESULTS*POSITIVE RESULTS WILL BE CONFIRMED BY REFERENCE LAB UPON R EQUEST CUT-OFFDRUG CLASS CONCENTRATION ng/mLAmphetamines 1000Methamphetamines 1000Cocaine Metabolite 300Opiate 300Phencyc lidine 25Cannabinoid 50Barbiturates 300Benzodiazepine 300Methadone 300[facility] Stzrz5176-85-81 07:48:00* Test Item Value Reference Range Interpretation Comments Urine Color (test code = 5778-6) YELLOW YELLOW [facility] Xlsjsox9641-68-71 07:48:00* Test Item Value Reference Range Interpretation Comments Urine Clarity (test code = 98536-5) CLEAR CLEAR [facility] Specific Txbcliy5129-29-25 07:48:00 * Test Item Value Reference Range Interpretation Comments Urine Specific Central (test code = 5811-5) 1.020 1.010-1.02 5 [facility] [id number] 07:48:00* Test Item Value Reference Range Interpretation Comments Urine pH (test code = 64635-7) 6 5-7 [facility] Leukocyte Mdubuvbx3551-39-68 07:48:00* Test Item Value Reference Range Interpretation Comments Urine Leukocyte Esterase (test code = 73234-7) NEGATIVE NEGATIV E [facility] Llgsmva9208-95-03 07:48:00* Test Item Value Reference Range Interpretation Comments Urine Nitrite (test code = 09432-4) NEGATIVE NEGATIVE [facility] Fmsjcrx8676-65-63 07:48:00* Test Item Value Reference Range Interpretation Comments Urine Protein (test code = 12019-8) NEGATIVE NEGATIVE [facility] Glucose (UA)2019-04-28 07:48:00* Test Item Value Reference Range Interpretation Comments Urine Glucose (UA) (test code = 79857-5) NEGATIVE NEGATIVE [facility] Qfavddk6060-59-28 07:48:00* Test Item Value Reference Range Interpretation Comments Urine Ketones (test code = 47177-5) NEGATIVE NEGATIVE [facility] Lmjmunodzupk1835-37-59 07:48:00* Test Item Value Reference Range Interpretation Comments Urine Urobilinogen (test code = 79688-8) 0.2 0.2-1 [facility] Tyhxgsodg2101-15-77 07:48:00* Test Item Value Reference Range Interpretation Comments Urine Bilirubin (test code = 1977-8) NEGATIVE NEGATIVE [facility] Hpkkk0874-02-56 07:48:00* Test Item Value Reference Range Interpretation Comments Urine Blood (test code = 72392-6) NEGATIVE NEGATIVE [facility] Kekbtkf8510-99-72 08:20:00* Test Item Value Reference Range Interpretation Comments Urine Culture (test code = 630-4) No Result Data Provided [facility] KMJ3548-59-18 09:18:00* Test Item Value Reference Range Interpretation Comments Urine WBC (test code = 5821-4) 6-10 0-5 H [facility] ESM8391-70-19 09:18:00* Test Item Value Reference Range Interpretation Comments Urine RBC (test code = 87647-2) 0-5 0-5 [facility] Grueoukd3103-40-00 09:18:00* Test Item Value Reference Range Interpretation Comments Urine Bacteria (test code = 59428-5) MANY NONE H [facility] Epithelial Gxbvd3484-45-23 09:18:00 * Test Item Value Reference Range Interpretation Comments Urine Epithelial Cells (test code = 57380-3) FEW NONE [facility] Lygf6477-85-33 09:03:00* Test Item Value Reference Range Interpretation Comments Urine Test (test code = 2106-3) NEGATIVE NEGATIVE [facility] Toct7256-49-68 09:03:00* Test Item Value Reference Range Interpretation Comments Urine Test (test code = 2106-3) NEGATIVE NEGATIVE [facility] Fbwza0558-38-42 09:01:00* Test Item Value Reference Range Interpretation Comments Urine Color (test code = 5778-6) YELLOW YELLOW [facility] Qglresg0770-47-00 09:01:00* Test Item Value Reference Range Interpretation Comments Urine Clarity (test code = 27602-0) SL CLOUDY CLEAR [facility] Specific Ieqrmgx0860-03-10 09:01:00 * Test Item Value Reference Range Interpretation Comments Urine Specific Central (test code = 5811-5) <=1.005 1.010-1.02 5 [facility] oH4303-63-84 09:01:00* Test Item Value Reference Range Interpretation Comments Urine pH (test code = 13775-2) 7 5-7 [facility] Leukocyte Afrgehgr0431-07-05 09:01:00* Test Item Value Reference Range Interpretation Comments Urine Leukocyte Esterase (test code = 87835-2) TRACE NEGATIV E H [facility] Dbezpre6105-83-33 09:01:00* Test Item Value Reference Range Interpretation Comments Urine Nitrite (test code = 42275-9) NEGATIVE NEGATIVE [facility] Ahexkxb0393-30-33 09:01:00* Test Item Value Reference Range Interpretation Comments Urine Protein (test code = 02250-1) NEGATIVE NEGATIVE [facility] Glucose (UA)2019-04-22 09:01:00* Test Item Value Reference Range Interpretation Comments Urine Glucose (UA) (test code = 20114-1) NEGATIVE NEGATIVE [facility] Kuvicct6805-15-11 09:01:00* Test Item Value Reference Range Interpretation Comments Urine Ketones (test code = 65660-0) NEGATIVE NEGATIVE [facility] Vmkbqdhjuwin0932-12-19 09:01:00* Test Item Value Reference Range Interpretation Comments Urine Urobilinogen (test code = 30690-4) 0.2 0.2-1 [facility] Bozwquwcc8880-05-02 09:01:00* Test Item Value Reference Range Interpretation Comments Urine Bilirubin (test code = 1977-8) NEGATIVE NEGATIVE [facility] Lovtn0306-54-16 09:01:00* Test Item Value Reference Range Interpretation Comments Urine Blood (test code = 20902-3) NEGATIVE NEGATIVE [facility] McKinneyABDOMEN 2 QYAO4982-92-40 08:56:00 [place] [address] Patient Name: ANGELA ESPINOSA MR #: [id number] : 1975 Age/Sex: 43/F Req #: [id number] Adm Physician: Ordered by: COLLETTE MARTINEZ MD Report #: [id number] Location: ER Room/Bed: Procedure: 1122- 0020 DX/ABDOMEN [...] 04/22/19857 COPY TO: COLLETTE MARTINEZ MD URINALYSIS VKZCPZGR8685-62-17 08:25:00* Test Item Value Reference Range Interpretation [...] #/LPF FEW Urine Source? Clean CatchBASIC METABOLIC QJKTX0859-29-33 09:50:00* Test Item Value Reference Range Interpretation [...] CA) 8.9 mg/dL 8.5-10.1 N HEPATIC FUNCTION UVFSY3988-05-28 09:50:00* Test Item Value Reference Range Interpretation [...] reference range due to change in reagent. HJIMSX2295-27-21 09:50:00* Test Item Value Reference Range Interpretation Comments LIPASE (test code = LIP) 80 U/L 73.0-393.0 N HCG SERUM [id number] 09:50:00* Test Item Value Reference Range Interpretation Comments HCG SERUM QUAL (test code = HCGQL) NEGATIVE NEGATIVE This HCGQL test is NOT applicable for MALE patients.Check with nurse about probable order error.If Tumor Marker Test needed, nurse should order test "HCGTU"(Test #550.95039) [id number]-N5038-12-11 09:50:00* Test Item Value Reference Range Interpretation Comments TROPONIN-I (test code = TROPI) <0.015 ng/mL 0-0.045 N URINALYSIS EDTINVNO3607-96-22 09:43:00* Test Item Value Reference Range Interpretation [...] #/LPF FEW Urine Source? Clean CatchBASIC METABOLIC BCRIX1325-18-84 09:42:00* Test Item Value Reference Range Interpretation [...] code = CA) mg/dL 8.5-10.1 HEPATIC FUNCTION QALYO6968-15-88 09:42:00* Test Item Value Reference Range Interpretation [...] TOTAL (test code = ALKP) IUnit/L 45-117 CZAUKW9261-94-08 09:42:00* Test Item Value Reference Range Interpretation Comments LIPASE (test code = LIP) U/L 73.0-393.0 HCG SERUM [id number] 09:42:00* Test Item Value Reference Range Interpretation Comments HCG SERUM QUAL (test code = HCGQL) NEGATIVE NEGATIVE This HCGQL test is NOT applicable for MALE patients.Check with nurse about probable order error.If Tumor Marker Test needed, nurse should order test "HCGTU"(Test #550.15450) IAACNLGX-I7166-43-11 09:42:00* Test Item Value Reference Range Interpretation Comments TROPONIN-I (test code = TROPI) ng/mL 0-0.045 BASIC METABOLIC ZTJXR2861-96-40 09:35:00* Test Item Value Reference Range Interpretation [...] code = CA) mg/dL 8.5-10.1 HEPATIC FUNCTION DQESZ0713-29-72 09:35:00* Test Item Value Reference Range Interpretation [...] TOTAL (test code = ALKP) IUnit/L 45-117 MEGNOX3325-99-28 09:35:00* Test Item Value Reference Range Interpretation Comments LIPASE (test code = LIP) U/L 73.0-393.0 HCG SERUM DWMW1118-31-79 09:35:00* Test Item Value Reference Range Interpretation Comments HCG SERUM QUAL (test code = HCGQL) NEGATIVE NEGATIVE This HCGQL test is NOT applicable for MALE patients.Check with nurse about probable order error.If Tumor Marker Test needed, nurse should order test "HCGTU"(Test #550.15268) [id number]-B7428-47-11 09:35:00* Test Item Value Reference Range Interpretation Comments TROPONIN-I (test code = TROPI) ng/mL 0-0.045 CBC W/O UWQG2612-86-97 09:34:00* Test Item Value Reference Range Interpretation [...] MPV) 9.3 fL 6.7-11.0 N CBC W/O [id number] 09:33:00* Test Item Value Reference Range Interpretation [...] MPV) fL 6.7-11.0 - XR CHEST 1 K1593-01-33 09:05:00 FAX: Briseyda Bailey NP [place]: St: REG Name: ANGELA DUPREE [facility] : [birth year] Age/S: 43/F [address] [facility] Unit #: [id number] Loc: [place] [address] Phys: Briseyda Bailey NP Acct: [id number] Dis Date: Status: REG ER PHONE #: [phone] Exam Date: 04/11/2019 0844 FAX #: [phone] Reason: Abdominal Pain EXAMS: CPT CODE: [id number] XR CHEST 1 V 83755 HISTORY: Abdominal pain. COMPARISON: None available. Location: [facility]. Single view abdomen: No bowel obstruction. Constipation. [...] Technologist: CORIN Ocasio) Trnrolando Tinoco te/Time/By: 04/11/2019 (904) : By: [email or web address] Orig Print D/T: S: 04/11 (907) PAGE 1 Signed Report - XR ABDOMEN AP 1 [id number] 09:05:00 FAX: Briseyda Bailey NP [place]: St: REG Name: ANGELA DUPREE [facility] : [birth year] Age/S: 43/F [address] [facility] Unit #: [id number] Loc: [place] [address] Phys: Briseyda Bailey NP Acct: [id number] Dis Date: Status: REG ER PHONE #: [phone] Exam Date: 04/11/2019 0844 FAX #: [phone] Reason: Abdominal Pain EXAMS: CPT CODE: [id number] XR ABDOMEN AP 1 V 81109 HISTORY: Abdominal pain. COMPARISON: None available. Location: [facility]. Single view abdomen: No bowel obstruction. Constipation. [...] Technologist: RT Amarjit([place]) Adarsh Tinoco te/Time/By: 04/11/2019 (904) : By: [email or web address] Orig Print D/T: S: 04/11 (08) PAGE 1 Signed Report - CT ABD PELVIS W/O [id number] 21:51:00Patient Name: ANGELA ESPINOSA Unit No: [id number] EXAMS: CPT CODE: [id number] CT ABD PELVIS W/O CONT 91361 Location: T 18 CT of the abdomen and CT [...] ab dominal wall hernia repair without Name: ANGELA ESPINOSA [facility] Phys: Huyen Lopez MD [address] [facility] : 1975 Age: 43 Sex: F [place], [place] [address] Loc: P.ERS Exam Date: 04/02/2019 Status: REG ER PH: FAX: PAGE 1 Signed Report (CONTIN UED) Patient Name: ANGELA ESPINOSA Unit No: [id number] EXAMS: CPT CODE: [id number] CT ABD PELVIS W/O CONT 47549 <Continued> recurrent hernia are identified. These are [...] Hurst MD; Faith monique MD Technologist: Nuris Cosmeuyen CTDI: 25.02 DLP: 1338 Trscr Dt/Tm: 04/02/2019 (2150) by:clarence [email or web address] Printed Date/Time: 04/02/2019 (2153) Name: JESÚSREJIA [facility] Phys: Huyen Lopez MD [address] OB: 1975 Age: 43 Sex: [place] [address] Loc: P.ERS Exam Date: Status: REG ER [...] code = ALKP) 101 U/L 32-104 N [id number] 20:23:00* Test Item Value Reference Range Interpretation Comments LIPASE (test code = LIP) 33 U/L 0-190 N URINALYSIS FWJPRPLB9626-15-41 20:15:00* Test Item Value Reference Range Interpretation [...] = LEUU) SMALL NEGA TIVE A UA MPEXUOLWFOQ9721-62-53 20:15:00* Test Item Value Reference Range Interpretation Comments UA WBC (test code = WBCU) 3-5 #WBC/HPF 0-2 A UA RBC (test code = RBCU) 0-2 #RBC/HPF 0-2 UA BACTERIA (test code = BACU) 3+ /HPF NONE-TRACE A UA SQUAMOUS CELLS (test code = SQU) 1+ /LPF NONE-TRACE A UA URIC ACID CRYSTALS (test code = URIU) OCCASIONAL /HPF NONE SEEN UR HCG [id number] 20:15:00* Test Item Value Reference Range Interpretation Comments UR HCG QUAL (test code = HCGQLU) NEGATIVE NEGATIVE URINALYSIS [id number] 20:09:00* Test Item Value Reference Range Interpretation [...] = LEUU) SMALL NEGA TIVE A UA ILCJBLJBPXT4429-12-45 20:09:00* Test Item Value Reference Range Interpretation Comments UA WBC (test code = WBCU) #WBC/HPF 0-2 UA RBC (test code = RBCU) #RBC/HPF 0-2 UA BACTERIA (test code = BACU) /HPF NONE-TRACE UA SQUAMOUS CELLS (test code = SQU) /LPF NONE-TRACE UR HCG [id number] 20:09:00* Test Item Value Reference Range Interpretation Comments UR HCG QUAL (test code = HCGQLU) NEGATIVE NEGATIVE URINALYSIS [id number] 20:08:00* Test Item Value Reference Range Interpretation [...] = LEUU) SMALL NEGA TIVE A UA QUANDLEAFEE3042-53-24 20:08:00* Test Item Value Reference Range Interpretation Comments UA WBC (test code = WBCU) #WBC/HPF 0-2 UA RBC (test code = RBCU) #RBC/HPF 0-2 UA BACTERIA (test code = BACU) /HPF NONE-TRACE UA SQUAMOUS CELLS (test code = SQU) /LPF NONE-TRACE UR HCG [id number] 20:08:00* Test Item Value Reference Range Interpretation Comments UR HCG QUAL (test code = HCGQLU) NEGATIVE URINALYSIS [id number] 20:07:00* Test Item Value Reference Range Interpretation [...] = LEUU) SMALL NEGA TIVE A UA FRAXTKYCLDM2339-86-65 20:07:00* Test Item Value Reference Range Interpretation Comments UA WBC (test code = WBCU) #WBC/HPF 0-2 UA RBC (test code = RBCU) #RBC/HPF 0-2 UA BACTERIA (test code = BACU) /HPF NONE-TRACE UA SQUAMOUS CELLS (test code = SQU) /LPF NONE-TRACE UR HCG [id number] 20:07:00* Test Item Value Reference Range Interpretation Comments UR HCG QUAL (test code = HCGQLU) NEGATIVE CBC W/AUTO AICQ2784-11-23 20:03:00* Test Item Value Reference Range Interpretation [...] 0.07 x10 3/uL 0.0-0.20 N CHEMISTRY 8 [id number] 20:02:00* Test Item Value Reference Range Interpretation [...] GFRP) 79 58-1 35 N CHEMISTRY 8 AOCGQWN2137-60-68 20:02:00* Test Item Value Reference Range Interpretation [...] GFRP) 79 58-1 35 N LACTIC ACID [id number] 20:02:00* Test Item Value Reference Range Interpretation Comments LACTIC ACID POC (test code = LACTP) 1.23 mmol/L 0.9-1.70 N - US ABDOMEN [id number] 11:12:00 Patient Name: ANGELA ESPINOSA Unit No: [id number] EXAMS: CPT CODE: [id number] US ABDOMEN LTD 50223 LIMITED ANTERIOR ABDOMINAL WALL ULTRASOUND, 03/22/2019 COMPARISON: [...] Chow RDMS, RVT Probe: Trnscrbd D/ (1112) t.DIONR.AJ13 Orig Print D/T: S: 03/22/2019 (1116) [facility] NAME: OPAL ESPINOSAJELICA Radiology Department PHYS: - Jr Robledo MD [address] : 1975 AGE: 43 SEX: F [place], [place] [address] LOC: FSilvaERS PHONE #: [phone] EXAM DATE: 03/22/2019 STATUS: DEP ER FAX #: [phone] RAD NO: Page 1 Signed Report Patient Name: ANGELA ESPINOSA Unit No: [id number] EXAMS: CPT CODE: [id number] US ABDOMEN LTD 58036 <Continued> [facility] NAME: ANGELA ESPINOSA Radiology Department PHYS: Jr Irwin MD [address] : 1975 AGE: 43 SEX: F [place] [address] LOC: F.ERS PHONE #: [phone] EXAM DATE: 03/22/2019 STATUS: DEP ER FAX #: [phone] RAD NO: Page 2 Signed Report - US ABDOMEN [id number] 11:12:00 Patient Name: ANGELA ESPINOSA Unit No: [id number] EXAMS: CPT CODE: [id number] US ABDOMEN LTD 74610 LIMITED ANTERIOR ABDOMINAL WALL ULTRASOUND, 03/22/2019 COMPARISON: [...] Chow RDMS, RVT Probe: Trnscrbd D/ (1112) t.DIONR.AJ13 Orig Print D/T: S: 03/22/2019 (1116) [facility] NAME: ANGELA ESPINOSA Radiology Department PHYS: Jr Irwin MD [address] : 1975 AGE: 43 SEX: F [place] [address] ACCT NO: [id number] LOC: F.ERS PHONE #: [phone] EXAM DATE: STATUS: REG ER FAX #: [phone] RAD NO: Page 1 Signed Report Patient Name: ANGELA ESPINOSA Unit No: [id number] EXAMS: CPT CODE: [id number] US ABDOMEN LTD 81521 <Continued> [facility] NAME: ANGELA ESPINOSA Radiology Department PHYS: Jr Irwin MD [address] : 1975 AGE: 43 SEX: F [place], [place] [address] ACCT NO: [id number] LOC: ALIVIA PHONE #: [phone] EXAM DATE: 03/02 STATUS: REG ER FAX #: [phone] RAD NO: P age 4 Signed Report COMPREHENSIVE METABOLIC [id number] 10:14:00* Test Item Value Reference Range Interpretation [...] code = ALKP) 93 units/L 46-116 N [id number] 10:14:00* Test Item Value Reference Range Interpretation Comments LIPASE (test code = LIP) 105 units/L 73-393 N CBC W/AUTO [id number] 10:12:00* Test Item Value Reference Range Interpretation [...] YOANA L UA RFLX MICR CULT IF [id number] 10:05:00* Test Item Value Reference Range Interpretation [...] SEEN Indication for culture: Flank PainUR HCG [id number] 10:05:00* Test Item Value Reference Range Interpretation Comments UR HCG QUAL (test code = HCGQLU) NEGATIVE 1. Very dilute urine specimens, as indicated by a lowspecific gravity, may not contain member services representative levels ofhCG. 2. False negative results may occur when the levels of hCGare below the sensitivity level of the test. If is still suspected, a first morningurine specimen should be collected 48 hours later andtested. Indication for culture: Flank PainUA RFLX MICR CULT IF [id number] 10:04:00* Test Item Value Reference Range Interpretation [...] SEEN Indication for culture: Flank PainUR HCG [id number] 10:04:00* Test Item Value Reference Range Interpretation Comments UR HCG QUAL (test code = HCGQLU) Indication for culture: Flank PainUrine Yhgen7617-89-56 09:40:00* Test Item Value Reference Range Interpretation Comments Urine Color (test code = 5778-6) YELLOW YELLOW [facility] Ohmoeyp8521-84-69 09:40:00* Test Item Value Reference Range Interpretation Comments Urine Clarity (test code = 59926-2) CLOUDY CLEAR H [facility] Specific Dkujidn6379-31-81 09:40:00 * Test Item Value Reference Range Interpretation Comments Urine Specific Central (test code = 5811-5) 1.010 1.010-1.02 5 [facility] [id number] 09:40:00* Test Item Value Reference Range Interpretation Comments Urine pH (test code = 07310-3) 6 5-7 [facility] Leukocyte Pprcotat1216-28-54 09:40:00* Test Item Value Reference Range Interpretation Comments Urine Leukocyte Esterase (test code = 14213-0) NEGATIVE NEGATIV E [facility] Uhwagdr5522-52-92 09:40:00* Test Item Value Reference Range Interpretation Comments Urine Nitrite (test code = 82966-5) NEGATIVE NEGATIVE [facility] Wpgvrze3634-37-79 09:40:00* Test Item Value Reference Range Interpretation Comments Urine Protein (test code = 76527-3) NEGATIVE NEGATIVE [facility] Glucose (UA)2019-03-18 09:40:00* Test Item Value Reference Range Interpretation Comments Urine Glucose (UA) (test code = 02125-9) NEGATIVE NEGATIVE [facility] Egpgwor2601-40-84 09:40:00* Test Item Value Reference Range Interpretation Comments Urine Ketones (test code = 98960-9) NEGATIVE NEGATIVE [facility] Sangezlhyrtm9479-89-02 09:40:00* Test Item Value Reference Range Interpretation Comments Urine Urobilinogen (test code = 22347-9) 0.2 0.2-1 [facility] Ygwksqiva3006-28-81 09:40:00* Test Item Value Reference Range Interpretation Comments Urine Bilirubin (test code = 1977-8) NEGATIVE NEGATIVE [facility] Tjhzb5147-49-56 09:40:00* Test Item Value Reference Range Interpretation Comments Urine Blood (test code = 11593-4) NEGATIVE NEGATIVE [facility] [id number] 09:40:00* Test Item Value Reference Range Interpretation Comments Urine WBC (test code = 5821-4) 6-10 0-5 H [facility] [id number] 09:40:00* Test Item Value Reference Range Interpretation Comments Urine RBC (test code = 20192-8) 0-5 0-5 [facility] Dsfetlbs8705-59-26 09:40:00* Test Item Value Reference Range Interpretation Comments Urine Bacteria (test code = 57000-6) MANY NONE H [facility] [facility] Vltws3068-25-68 09:40:00 * Test Item Value Reference Range Interpretation Comments Urine Epithelial Cells (test code = 28144-5) MODERATE NONE [facility] McKinneyCOMPREHENSIVE METABOLIC [id number] 09:02:00* Test Item Value Reference Range Interpretation [...] code = ALKP) 96 Unit/L 45-117 N [id number] 09:02:00* Test Item Value Reference Range Interpretation Comments LIPASE (test code = LIP) 70 Unit/L 114-286 L CBC W/AUTO [id number] 08:50:00* Test Item Value Reference Range Interpretation [...] NO DIFF/SCN CRITERIA - CT ABD PELVIS W/[id number] 13:00:00 Name: ANGELA ESPINOSA [facility] : 1975 Age/S: 43 / F [id number] [facility] Unit [facility]: [id number] Loc: [place] [address] Phys: Luis Hummel MD Acct: [id number] Dis Date: Status: DEP ER PHONE #: [phone] Exam Date: 03/11/2019 9338 FAX #: Reason: luq abdominal pain EXAMS: CPT: [id number] CT ABD PELVIS W/CONT 50033 LOCATION: T18 EXAM: CT ABDOMEN AND PELVIS [...] CTDI: DLP: Trnscb Date/Time: 03/11/2019 ( 1300) t.SDR.JP19 Orig Print D/T: S: 03/11/2019 (2854) PAGE 1 Signed Report - CT ABD PELVIS W/[id number] 13:00:00 Name: ANGELA ESPINOSA [facility] : 1975 Age/S: 43 / F [address] [address] [place] Unit #: [id number] Loc: [place] [address] Phys: Luis Hummel MD Acct: [id number] Dis Date: Status: REG ER PHONE #: [phone] Exam Date: 03/11/2019 1965 FAX #: Reason: luq abdominal pain EXAMS: CPT: [id number] CT ABD PELVIS W/CONT 81321 LOCATION: T18 EXAM: CT ABDOMEN AND PELVIS [...] CTDI: DLP: Trnscb Date/Time: 03/11/2019 ( 1300) [email or web address].JP19 Orig Print D/T: S: 03/11/2019 (8121) PAGE 1 Signed Report BASIC METABOLIC [id number] 12:03:00* Test Item Value Reference Range Interpretation [...] CA) 8.3 MG/DL 8.5-10.1 L HEPATIC FUNCTION [id number] 12:03:00* Test Item Value Reference Range Interpretation [...] code = ALKP) 91 Unit/L 45-117 N [id number] 12:03:00* Test Item Value Reference Range Interpretation Comments LIPASE (test code = LIP) 67 Unit/L 114-286 L UA RFLX MICR CULT IF [id number] 11:49:00* Test Item Value Reference Range Interpretation [...] URINE: CLEAN CATCHIndication for culture: Dysuria/FrequencyCBC W/AUTO [id number] 11:43:00* Test Item Value Reference Range Interpretation [...] DIFF/SCN CRITERIA UA RFLX MICR CULT IF [id number] 11:40:00* Test Item Value Reference Range Interpretation [...] and retested after 48 hours COMPREHENSIVE METABOLIC [id number] 13:09:00* Test Item Value Reference Range Interpretation [...] code = ALKP) 89 Unit/L 45-117 N [id number] 13:09:00* Test Item Value Reference Range Interpretation Comments LIPASE (test code = LIP) 72 Unit/L 114-286 L CBC W/AUTO [id number] 13:05:00* Test Item Value Reference Range Interpretation [...] Comments D-Dimer Quantitative (PE/DVT) (test code = 08625-3) < 100 0- 400 As with all in vitro diagnostic tests, the test results should be interpreted by the physician in conjunction with clinical findings and other test results.Test results are reported in NEW D-dimer units(ug/mLFEU).[facility]neyD-Dimer Quantitative (PE/DVT)2019-03-01 09:41:00* Test Item Value Reference Range Interpretation Comments D-Dimer Quantitative (PE/DVT) (test code = 78265-2) < 100 0- 400 As with all in vitro diagnostic tests, the test results should be interpreted by the physician in conjunction with clinical findings and other test results.Test results are reported in NEW D-dimer units(ug/mLFEU).[facility] McKinneyD-Dimer Quantitative (PE/DVT)2019-03-01 09:41:00* Test Item Value Reference Range Interpretation Comments D-Dimer Quantitative (PE/DVT) (test code = 76726-8) < 100 0- 400 As with all in vitro diagnostic tests, the test results should be interpreted by the physician in conjunction with clinical findings and other test results.Test results are reported in NEW D-dimer units(ug/mLFEU).[facility] McKinneyD-Dimer Quantitative (PE/DVT)2019-03-01 09:41:00* Test Item Value Reference Range Interpretation Comments D-Dimer Quantitative (PE/DVT) (test code = 19604-4) < 100 0- 400 As with all in vitro diagnostic tests, the test results should be interpreted by the physician in conjunction with clinical findings and other test results.Test results are reported in NEW D-dimer units(ug/mLFEU).[facility] McKinneyCreatine Kinase [id number] 09:38:00* Test Item Value Reference Range Interpretation Comments Creatine Kinase MB (test code = 02975-1) 0.40 0-5.0 [facility] I2006-11-24 09:38:00* Test Item Value Reference Range Interpretation Comments Troponin I (test code = FEV0000) 0.002 0-0.300 [facility] McKinneyCreatine Kinase [id number] 09:38:00* Test Item Value Reference Range Interpretation Comments Creatine Kinase MB (test code = 80804-8) 0.40 0-5.0 [place] [id number] 09:38:00* Test Item Value Reference Range Interpretation Comments Troponin I (test code = QBO5350) 0.002 0-0.300 [facility] McKinneyCreatine Kinase [id number] 09:38:00* Test Item Value Reference Range Interpretation Comments Creatine Kinase MB (test code = 68602-2) 0.40 0-5.0 [facility] McKinneyTroponin [id number] 09:38:00* Test Item Value Reference Range Interpretation Comments Troponin I (test code = UBO0429) 0.002 0-0.300 [facility] McKinneyCreatine Kinase [id number] 09:38:00* Test Item Value Reference Range Interpretation Comments Creatine Kinase MB (test code = 94054-3) 0.40 0-5.0 [facility] McKinneyTroponin [id number] 09:38:00* Test Item Value Reference Range Interpretation Comments Troponin I (test code = JMD0838) 0.002 0-0.300 [facility]odium Tczet7321-10-13 09:32:00* Test Item Value Reference Range Interpretation Comments Sodium Level (test code = 2951-2) 141 136-145 [facility]neyPotassium Tminr1601-92-37 09:32:00* Test Item Value Reference Range Interpretation Comments Potassium Level (test code = 2823-3) 4.1 3.5-5.1 [facility] McKinneyChloride Yjwzx0013-08-96 09:32:00* Test Item Value Reference Range Interpretation Comments Chloride Level (test code = 2075-0) 107 98-107 [facility] McKinneyCarbon Dioxide Ocatz4837-60-78 09:32:00* Test Item Value Reference Range Interpretation Comments Carbon Dioxide Level (test code = 2028-9) 24 22-29 [facility] McKinneyAnion Iap7827-35-73 09:32:00* Test Item Value Reference Range Interpretation Comments Anion Gap (test code = 95513-3) 14.1 8-16 [facility] McKinneyBlood Urea Jjehgmei3729-01-85 09:32:00* Test Item Value Reference Range Interpretation Comments Blood Urea Nitrogen (test code = 3094-0) 12 7-26 [facility] McKinneyCreatinine2019-10-01 09:32:00* Test Item Value Reference Range Interpretation Comments Creatinine (test code = 2160-0) 0.85 0.57-1.11 [facility] McKinneyBUN/Creatinine Gtxkf9822-26-88 09:32:00* Test Item Value Reference Range Interpretation Comments BUN/Creatinine Ratio (test code = 3097-3) 14 6-25 [facility] McKinneyEstimat Glomerular Filtration Rate 2019-03-01 09:32:00* Test Item Value Reference Range Interpretation Comments Estimat Glomerular Filtration Rate (test code = 716963673) > 60 >60 Ranges were taken from the National Kidney Disease Education Program and the [facility] Kidney Foundation literature.Reference ranges:60 or greater: Fgsoiq44-59 ( for 3 consecutive months): Chronic kidney disease 15 or less: Kidney failureBaylor Scott & White Medical Center – McKinneyGlucose Ioqbf8931-32-75 09:32:00* Test Item Value Reference Range Interpretation Comments Glucose Level (test code = ZEY4900) 100 74-118 [facility] McKinneyCalcium Mglli8818-03-64 09:32:00* Test Item Value Reference Range Interpretation Comments Calcium Level (test code = 95532-5) 9.3 8.4-10.2 [facility] McKinneyTotal Xffimjvgu5986-85-46 09:32:00* Test Item Value Reference Range Interpretation Comments Total Bilirubin (test code = 1975-2) 0.5 0.2-1.2 [facility] McKinneyAspartate Amino Transf (AST/SGOT) 2019-03-01 09:32:00* Test Item Value Reference Range Interpretation Comments Aspartate Amino Transf (AST/SGOT) (test code = Aspartate Amino Transf (AST/SGOT)) 16 5-34 [facility] McKinneyAlanine Aminotransferase (ALT/SGPT) 2019-03-01 09:32:00* Test Item Value Reference Range Interpretation Comments Alanine Aminotransferase (ALT/SGPT) (test code = 1742-6) 24 0-55 [facility] McKinneyTotal Uhydamh1774-30-22 09:32:00* Test Item Value Reference Range Interpretation Comments Total Protein (test code = 2885-2) 6.7 6.5-8.1 [facility] McKinneyAlbumin2019-10-01 09:32:00* Test Item Value Reference Range Interpretation Comments Albumin (test code = 1751-7) 3.5 3.5-5.0 [facility] McKinneyGlobulin2019-10-01 09:32:00* Test Item Value Reference Range Interpretation Comments Globulin (test code = 28459-5) 3.2 2.3-3.5 [facility] McKinneyAlbumin/Globulin Edkgb5016-66-71 09:32:00 * Test Item Value Reference Range Interpretation Comments Albumin/Globulin Ratio (test code = 1759-0) 1.1 0.8-2.0 [facility] McKinneyAlkaline Xwmqsthbomc8403-00-44 09:32:00* Test Item Value Reference Range Interpretation Comments Alkaline Phosphatase (test code = 6768-6) 83 40-150 [facility] McKinneyCreatine Nbemed8478-91-70 09:32:00* Test Item Value Reference Range Interpretation Comments Creatine Kinase (test code = 2157-6) 59 29-168 [facility] McKinneyLipase2019-10-01 09:32:00* Test Item Value Reference Range Interpretation Comments Lipase (test code = 3040-3) 15 8-78 [facility] Campusodium Oguxo3190-17-62 09:32:00* Test Item Value Reference Range Interpretation Comments Sodium Level (test code = 2951-2) 141 136-145 [facility] McKinneyPotassium Ttyqe6453-30-64 09:32:00* Test Item Value Reference Range Interpretation Comments Potassium Level (test code = 2823-3) 4.1 3.5-5.1 [facility] McKinneyChloride Ascxv4411-49-47 09:32:00* Test Item Value Reference Range Interpretation Comments Chloride Level (test code = 2075-0) 107 98-107 [facility] McKinneyCarbon Dioxide Fsawu7624-58-96 09:32:00* Test Item Value Reference Range Interpretation Comments Carbon Dioxide Level (test code = 2028-9) 24 22-29 [facility] McKinneyAnion Fuw7776-86-42 09:32:00* Test Item Value Reference Range Interpretation Comments Anion Gap (test code = 05583-9) 14.1 8-16 [facility] McKinneyBlood Urea Zwcvnmdz8513-30-49 09:32:00* Test Item Value Reference Range Interpretation Comments Blood Urea Nitrogen (test code = 3094-0) 12 7-26 [facility] McKinneyCreatinine2019-10-01 09:32:00* Test Item Value Reference Range Interpretation Comments Creatinine (test code = 2160-0) 0.85 0.57-1.11 [facility] McKinneyBUN/Creatinine Fxpfi5193-89-11 09:32:00* Test Item Value Reference Range Interpretation Comments BUN/Creatinine Ratio (test code = 3097-3) 14 6-25 [facility] McKinneyEstimat Glomerular Filtration Rate 2019-03-01 09:32:00* Test Item Value Reference Range Interpretation Comments Estimat Glomerular Filtration Rate (test code = 336487594) > 60 >60 Ranges were taken from the National Kidney Disease Education Program and the [facility] Kid[facility] Foundation literature.Reference ranges:60 or greater: Jaefoo95-33 ( for 3 consecutive months): Chronic kidney disease 15 or less: Kidney failureBaylor Scott & White Medical Center – McKinneyGlucose Fxxot0395-27-81 09:32:00* Test Item Value Reference Range Interpretation Comments Glucose Level (test code = ISQ3505) 100 74-118 [facility] McKinneyCalcium Tesus4725-04-09 09:32:00* Test Item Value Reference Range Interpretation Comments Calcium Level (test code = 67225-3) 9.3 8.4-10.2 [facility] McKinneyTotal Knomfjywx9094-85-30 09:32:00* Test Item Value Reference Range Interpretation Comments Total Bilirubin (test code = 1975-2) 0.5 0.2-1.2 [facility] McKinneyAspartate Amino Transf (AST/SGOT) 2019-03-01 09:32:00* Test Item Value Reference Range Interpretation Comments Aspartate Amino Transf (AST/SGOT) (test code = Aspartate Amino Transf (AST/SGOT)) 16 5-34 [facility] McKinneyAlanine Aminotransferase (ALT/SGPT) 2019-03-01 09:32:00* Test Item Value Reference Range Interpretation Comments Alanine Aminotransferase (ALT/SGPT) (test code = 1742-6) 24 0-55 [facility] McKinneyTotal Vhwgobe0485-66-49 09:32:00* Test Item Value Reference Range Interpretation Comments Total Protein (test code = 2885-2) 6.7 6.5-8.1 [facility] McKinneyAlbumin2019-10-01 09:32:00* Test Item Value Reference Range Interpretation Comments Albumin (test code = 1751-7) 3.5 3.5-5.0 [facility] McKinneyGlobulin2019-10-01 09:32:00* Test Item Value Reference Range Interpretation Comments Globulin (test code = 44752-2) 3.2 2.3-3.5 [facility] McKinneyAlbumin/Globulin Bwbjc9674-40-67 09:32:00 * Test Item Value Reference Range Interpretation Comments Albumin/Globulin Ratio (test code = 1759-0) 1.1 0.8-2.0 [facility] McKinneyAlkaline Khmwljrwfxi9380-36-53 09:32:00* Test Item Value Reference Range Interpretation Comments Alkaline Phosphatase (test code = 6768-6) 83 40-150 [facility] McKinneyCreatine Ursynq6016-26-24 09:32:00* Test Item Value Reference Range Interpretation Comments Creatine Kinase (test code = 2157-6) 59 29-168 [facility] McKinneyLipase2019-10-01 09:32:00* Test Item Value Reference Range Interpretation Comments Lipase (test code = 3040-3) 15 8-78 [facility] Campusodium Edsgd3210-36-52 09:32:00* Test Item Value Reference Range Interpretation Comments Sodium Level (test code = 2951-2) 141 136-145 [facility] McKinneyPotassium Izivt1691-98-97 09:32:00* Test Item Value Reference Range Interpretation Comments Potassium Level (test code = 2823-3) 4.1 3.5-5.1 [facility] McKinneyChloride Rdzvm3756-16-78 09:32:00* Test Item Value Reference Range Interpretation Comments Chloride Level (test code = 2075-0) 107 98-107 [facility] McKinneyCarbon Dioxide Xcsrw9861-02-67 09:32:00* Test Item Value Reference Range Interpretation Comments Carbon Dioxide Level (test code = 8-9) 24 22-29 [facility] McKinneyAnion Yqw0755-67-80 09:32:00* Test Item Value Reference Range Interpretation Comments Anion Gap (test code = 98396-1) 14.1 8-16 [facility] McKinneyBlood Urea Wbglrpmc9094-06-31 09:32:00* Test Item Value Reference Range Interpretation Comments Blood Urea Nitrogen (test code = 3094-0) 12 7-26 [facility] McKinneyCreatinine2019-10-01 09:32:00* Test Item Value Reference Range Interpretation Comments Creatinine (test code = 2160-0) 0.85 0.57-1.11 [facility] McKinneyBUN/Creatinine Vgxuc5194-59-21 09:32:00* Test Item Value Reference Range Interpretation Comments BUN/Creatinine Ratio (test code = 3097-3) 14 6-25 [facility] McKinneyEstimat Glomerular Filtration Rate 2019-03-01 09:32:00* Test Item Value Reference Range Interpretation Comments Estimat Glomerular Filtration Rate (test code = 727092450) > 60 >60 Ranges were taken from the National Kidney Disease Education Program and the [facility] Kidney Foundation literature.Reference ranges:60 or greater: Vgiyzj46-57 ( for 3 consecutive months): Chronic kidney disease 15 or less: Kidney failureBaylor Scott & White Medical Center – McKinneyGlucose Zmfco7052-22-03 09:32:00* Test Item Value Reference Range Interpretation Comments Glucose Level (test code = WWS2770) 100 74-118 [facility] McKinneyCalcium Hxnwq8769-52-18 09:32:00* Test Item Value Reference Range Interpretation Comments Calcium Level (test code = 88931-2) 9.3 8.4-10.2 [facility] McKinneyTotal Wgibohufb0381-63-79 09:32:00* Test Item Value Reference Range Interpretation Comments Total Bilirubin (test code = 1975-2) 0.5 0.2-1.2 [facility] McKinneyAspartate Amino Transf (AST/SGOT) 2019-03-01 09:32:00* Test Item Value Reference Range Interpretation Comments Aspartate Amino Transf (AST/SGOT) (test code = Aspartate Amino Transf (AST/SGOT)) 16 5-34 [facility] McKinneyAlanine Aminotransferase (ALT/SGPT) 2019-03-01 09:32:00* Test Item Value Reference Range Interpretation Comments Alanine Aminotransferase (ALT/SGPT) (test code = 1742-6) 24 0-55 [facility] McKinneyTotal Zygsctr8175-80-35 09:32:00* Test Item Value Reference Range Interpretation Comments Total Protein (test code = 2885-2) 6.7 6.5-8.1 [facility] McKinneyAlbumin2019-10-01 09:32:00* Test Item Value Reference Range Interpretation Comments Albumin (test code = 1751-7) 3.5 3.5-5.0 [facility] McKinneyGlobulin2019-10-01 09:32:00* Test Item Value Reference Range Interpretation Comments Globulin (test code = 82720-7) 3.2 2.3-3.5 [facility] McKinneyAlbumin/Globulin Cgrai6964-09-18 09:32:00 * Test Item Value Reference Range Interpretation Comments Albumin/Globulin Ratio (test code = 1759-0) 1.1 0.8-2.0 [facility] McKinneyAlkaline Gcqqijkexkv5138-26-48 09:32:00* Test Item Value Reference Range Interpretation Comments Alkaline Phosphatase (test code = 6768-6) 83 40-150 [facility] McKinneyCreatine Ozwxij0913-39-42 09:32:00* Test Item Value Reference Range Interpretation Comments Creatine Kinase (test code = 2157-6) 59 29-168 [facility] McKinneyLipase2019-10-01 09:32:00* Test Item Value Reference Range Interpretation Comments Lipase (test code = 3040-3) 15 8-78 [facility] Campusodium Ijtan7629-06-04 09:32:00* Test Item Value Reference Range Interpretation Comments Sodium Level (test code = 2951-2) 141 136-145 [facility] McKinneyPotassium Ycddg4334-14-14 09:32:00* Test Item Value Reference Range Interpretation Comments Potassium Level (test code = 2823-3) 4.1 3.5-5.1 [facility] McKinneyChloride Qzown5743-39-21 09:32:00* Test Item Value Reference Range Interpretation Comments Chloride Level (test code = 2075-0) 107 98-107 [facility] McKinneyCarbon Dioxide Bqdoc2691-34-34 09:32:00* Test Item Value Reference Range Interpretation Comments Carbon Dioxide Level (test code = 2028-9) 24 22-29 [facility] McKinneyAnion Hek9836-83-74 09:32:00* Test Item Value Reference Range Interpretation Comments Anion Gap (test code = 05050-3) 14.1 8-16 [facility] McKinneyBlood Urea Clcnwhfs0459-95-82 09:32:00* Test Item Value Reference Range Interpretation Comments Blood Urea Nitrogen (test code = 3094-0) 12 7-26 [facility] McKinneyCreatinine2019-10-01 09:32:00* Test Item Value Reference Range Interpretation Comments Creatinine (test code = 2160-0) 0.85 0.57-1.11 [facility] McKinneyBUN/Creatinine Xgyam8909-94-49 09:32:00* Test Item Value Reference Range Interpretation Comments BUN/Creatinine Ratio (test code = 3097-3) 14 6-25 [facility] McKinneyEstimat Glomerular Filtration Rate 2019-03-01 09:32:00* Test Item Value Reference Range Interpretation Comments Estimat Glomerular Filtration Rate (test code = 068903406) > 60 >60 Ranges were taken from the National Kidney Disease Education Program and the [facility] Kidney Foundation literature.Reference ranges:60 or greater: Qgshbm01-11 ( for 3 consecutive months): Chronic kidney disease 15 or less: Kidney failureBaylor Scott & [facility] Center – McKinneyGlucose Qnskf9716-79-45 09:32:00* Test Item Value Reference Range Interpretation Comments Glucose Level (test code = TEY6846) 100 74-118 [facility] McKinneyCalcium Yuudr2285-69-41 09:32:00* Test Item Value Reference Range Interpretation Comments Calcium Level (test code = 49958-8) 9.3 8.4-10.2 [facility] McKinneyTotal Yepwxnyun3365-96-52 09:32:00* Test Item Value Reference Range Interpretation Comments Total Bilirubin (test code = 1975-2) 0.5 0.2-1.2 [facility] McKinneyAspartate Amino Transf (AST/SGOT) 2019-03-01 09:32:00* Test Item Value Reference Range Interpretation Comments Aspartate Amino Transf (AST/SGOT) (test code = Aspartate Amino Transf (AST/SGOT)) 16 5-34 [facility] McKinneyAlanine Aminotransferase (ALT/SGPT) 2019-03-01 09:32:00* Test Item Value Reference Range Interpretation Comments Alanine Aminotransferase (ALT/SGPT) (test code = 1742-6) 24 0-55 [facility] McKinneyTotal Wirerlb8491-45-45 09:32:00* Test Item Value Reference Range Interpretation Comments Total Protein (test code = 2885-2) 6.7 6.5-8.1 [facility] McKinneyAlbumin2019-10-01 09:32:00* Test Item Value Reference Range Interpretation Comments Albumin (test code = 1751-7) 3.5 3.5-5.0 [facility] McKinneyGlobulin2019-10-01 09:32:00* Test Item Value Reference Range Interpretation Comments Globulin (test code = 46957-9) 3.2 2.3-3.5 [facility] McKinneyAlbumin/Globulin Uzlts8896-31-42 09:32:00 * Test Item Value Reference Range Interpretation Comments Albumin/Globulin Ratio (test code = 1759-0) 1.1 0.8-2.0 [facility] McKinneyAlkaline Cqqpeezlzeo4072-00-63 09:32:00* Test Item Value Reference Range Interpretation Comments Alkaline Phosphatase (test code = 6768-6) 83 40-150 [facility] McKinneyCreatine Judwnm7526-59-00 09:32:00* Test Item Value Reference Range Interpretation Comments Creatine Kinase (test code = 2157-6) 59 29-168 [facility] McKinneyLipase2019-10-01 09:32:00* Test Item Value Reference Range Interpretation Comments Lipase (test code = 3040-3) 15 8-78 [facility] McKinneyWhite Blood Fyjbf1103-64-65 09:11:00* Test Item Value Reference Range Interpretation Comments White Blood Count (test code = 6690-2) 7.43 4.8-10.8 [facility] McKinneyRed Blood Whrch0556-85-99 09:11:00* Test Item Value Reference Range Interpretation Comments Red Blood Count (test code = 789-8) 4.27 3.6-5.1 [facility] McKinneyHemoglobin2019-10-01 09:11:00* Test Item Value Reference Range Interpretation Comments Hemoglobin (test code = 84684-1) 12.6 12.0-16.0 [facility] McKinneyHematocrit2019-10-01 09:11:00* Test Item Value Reference Range Interpretation Comments Hematocrit (test code = 4544-3) 37.2 34.2-44.1 [facility] McKinneyMean Corpuscular Jujclu0972-33-00 09:11:00* Test Item Value Reference Range Interpretation Comments Mean Corpuscular Volume (test code = 787-2) 87.1 81-99 [facility] [place] [facility]uscular Irulndjxnu1762-07-16 09:11:00* Test Item Value Reference Range Interpretation Comments Mean Corpuscular Hemoglobin (test code = 785-6) 29.5 28-32 [facility]ney[facility] Corpuscular Hemoglobin Concent 2019-03-01 09:11:00* Test Item Value Reference Range Interpretation Comments Mean Corpuscular Hemoglobin Concent (test code = 786-4) 33.9 31-35 [facility] McKinneyRed Cell Distribution Vqlkr6568-79-67 09:11:00* Test Item Value Reference Range Interpretation Comments Red Cell Distribution Width (test code = 63509-7) 13.8 11.7 -14.4 [facility] McKinneyPlatelet Buylc5329-87-98 09:11:00* Test Item Value Reference Range Interpretation Comments Platelet Count (test code = 777-3) 302 140-360 [facility] McKinneyNeutrophils (%) (Auto)2019-03-01 09:11:00 * Test Item Value Reference Range Interpretation Comments Neutrophils (%) (Auto) (test code = 52761-7) 72.5 38.7-80.0 [facility] McKinneyLymphocytes (%) (Auto)2019-03-01 09:11:00 * Test Item Value Reference Range Interpretation Comments Lymphocytes (%) (Auto) (test code = 736-9) 20.6 18.0-39.1 [facility] McKinneyMonocytes (%) (Auto)2019-03-01 09:11:00* Test Item Value Reference Range Interpretation Comments Monocytes (%) (Auto) (test code = 5905-5) 5.8 4.4-11.3 [facility] McKinneyEosinophils (%) (Auto)2019-03-01 09:11:00 * Test Item Value Reference Range Interpretation Comments Eosinophils (%) (Auto) (test code = 713-8) 0.3 0.0-6.0 [facility] McKinneyBasophils (%) (Auto)2019-03-01 09:11:00* Test Item Value Reference Range Interpretation Comments Basophils (%) (Auto) (test code = 706-2) 0.1 0.0-1.0 [facility] [place]neyIM GRANULOCYTES %2019-03-01 09:11:00* Test Item Value Reference Range Interpretation Comments IM GRANULOCYTES % (test code = IM GRANULOCYTES %) 0.7 0.0- 1.0 [facility] McKinneyNeutrophils # (Auto)2019-03-01 09:11:00* Test Item Value Reference Range Interpretation Comments Neutrophils # (Auto) (test code = 751-8) 5.4 2.1-6.9 [facility] McKinneyLymphocytes # (Auto)2019-03-01 09:11:00* Test Item Value Reference Range Interpretation Comments Lymphocytes # (Auto) (test code = 26283-9) 1.5 1.0-3.2 [facility] McKinneyMonocytes # (Auto)2019-03-01 09:11:00* Test Item Value Reference Range Interpretation Comments Monocytes # (Auto) (test code = 742-7) 0.4 0.2-0.8 [facility] McKinneyEosinophils # (Auto)2019-03-01 09:11:00* Test Item Value Reference Range Interpretation Comments Eosinophils # (Auto) (test code = 711-2) 0.0 0.0-0.4 [facility]neyBasophils # (Auto)2019-03-01 09:11:00* Test Item Value Reference Range Interpretation Comments Basophils # (Auto) (test code = 704-7) 0.0 0.0-0.1 [facility] McKinneyAbsolute Immature Granulocyte (auto 2019-03-01 09:11:00* Test Item Value Reference Range Interpretation Comments Absolute Immature Granulocyte (auto (alexa t code = Absolute Immature Granulocyte (auto) 0.05 0-0.1 [facility] McKinneyWhite Blood Thuud1342-62-54 09:11:00* Test Item Value Reference Range Interpretation Comments White Blood Count (test code = 6690-2) 7.43 4.8-10.8 [facility] McKinneyRed Blood Tmbsy0745-11-48 09:11:00* Test Item Value Reference Range Interpretation Comments Red Blood Count (test code = 789-8) 4.27 3.6-5.1 [facility] McKinneyHemoglobin2019-10-01 09:11:00* Test Item Value Reference Range Interpretation Comments Hemoglobin (test code = 52923-5) 12.6 12.0-16.0 [facility] McKinneyHematocrit2019-10-01 09:11:00* Test Item Value Reference Range Interpretation Comments Hematocrit (test code = 4544-3) 37.2 34.2-44.1 [facility]Mean Corpuscular Nudatb0967-62-99 09:11:00* Test Item Value Reference Range Interpretation Comments Mean Corpuscular Volume (test code = 787-2) 87.1 81-99 [facility]neyMean Corpuscular Ppxiaaisbe3622-73-97 09:11:00* Test Item Value Reference Range Interpretation Comments Mean Corpuscular Hemoglobin (test code = 785-6) 29.5 28-32 [facility] [place]Mean Corpuscular Hemoglobin Concent 2019-03-01 09:11:00* Test Item Value Reference Range Interpretation Comments Mean Corpuscular Hemoglobin Concent (test code = 786-4) 33.9 31-35 [facility] McKinneyRed Cell Distribution Ggepu2089-69-44 09:11:00* Test Item Value Reference Range Interpretation Comments Red Cell Distribution Width (test code = 01679-3) 13.8 11.7 -14.4 [facility] McKinneyPlatelet Xuvhz8893-77-89 09:11:00* Test Item Value Reference Range Interpretation Comments Platelet Count (test code = 777-3) 302 140-360 [facility] McKinneyNeutrophils (%) (Auto)2019-03-01 09:11:00 * Test Item Value Reference Range Interpretation Comments Neutrophils (%) (Auto) (test code = 10482-5) 72.5 38.7-80.0 [facility] McKinneyLymphocytes (%) (Auto)2019-03-01 09:11:00 * Test Item Value Reference Range Interpretation Comments Lymphocytes (%) (Auto) (test code = 736-9) 20.6 18.0-39.1 [facility]neyMonocytes (%) (Auto)2019-03-01 09:11:00* Test Item Value Reference Range Interpretation Comments Monocytes (%) (Auto) (test code = 5905-5) 5.8 4.4-11.3 [facility] McKinneyEosinophils (%) (Auto)2019-03-01 09:11:00 * Test Item Value Reference Range Interpretation Comments Eosinophils (%) (Auto) (test code = 713-8) 0.3 0.0-6.0 [facility]neyBasophils (%) (Auto)2019-03-01 09:11:00* Test Item Value Reference Range Interpretation Comments Basophils (%) (Auto) (test code = 706-2) 0.1 0.0-1.0 [facility] [place]neyIM GRANULOCYTES %2019-03-01 09:11:00* Test Item Value Reference Range Interpretation Comments IM GRANULOCYTES % (test code = IM GRANULOCYTES %) 0.7 0.0- 1.0 [facility] McKinneyNeutrophils # (Auto)2019-03-01 09:11:00* Test Item Value Reference Range Interpretation Comments Neutrophils # (Auto) (test code = 751-8) 5.4 2.1-6.9 [facility] McKinneyLymphocytes # (Auto)2019-03-01 09:11:00* Test Item Value Reference Range Interpretation Comments Lymphocytes # (Auto) (test code = 18800-4) 1.5 1.0-3.2 [facility]neyMonocytes # (Auto)2019-03-01 09:11:00* Test Item Value Reference Range Interpretation Comments Monocytes # (Auto) (test code = 742-7) 0.4 0.2-0.8 [facility] McKinneyEosinophils # (Auto)2019-03-01 09:11:00* Test Item Value Reference Range Interpretation Comments Eosinophils # (Auto) (test code = 711-2) 0.0 0.0-0.4 [facility] McKinneyBasophils # (Auto)2019-03-01 09:11:00* Test Item Value Reference Range Interpretation Comments Basophils # (Auto) (test code = 704-7) 0.0 0.0-0.1 [facility] McKinneyAbsolute Immature Granulocyte (auto 2019-03-01 09:11:00* Test Item Value Reference Range Interpretation Comments Absolute Immature Granulocyte (auto (alexa t code = Absolute Immature Granulocyte (auto) 0.05 0-0.1 [facility] McKinneyWhite Blood Oywqh3818-21-80 09:11:00* Test Item Value Reference Range Interpretation Comments White Blood Count (test code = 6690-2) 7.43 4.8-10.8 [facility] McKinneyRed Blood Icwzu9090-33-22 09:11:00* Test Item Value Reference Range Interpretation Comments Red Blood Count (test code = 789-8) 4.27 3.6-5.1 [facility] McKinneyHemoglobin2019-10-01 09:11:00* Test Item Value Reference Range Interpretation Comments Hemoglobin (test code = 39685-1) 12.6 12.0-16.0 [facility] McKinneyHematocrit2019-10-01 09:11:00* Test Item Value Reference Range Interpretation Comments Hematocrit (test code = 4544-3) 37.2 34.2-44.1 [facility]neyMean Corpuscular Hdxttv2223-94-21 09:11:00* Test Item Value Reference Range Interpretation Comments Mean Corpuscular Volume (test code = 787-2) 87.1 81-99 [facility]neyMean Corpuscular Yjwjpsrqzt6949-36-77 09:11:00* Test Item Value Reference Range Interpretation Comments Mean Corpuscular Hemoglobin (test code = 785-6) 29.5 28-32 [facility]neyMean Corpuscular Hemoglobin Concent 2019-03-01 09:11:00* Test Item Value Reference Range Interpretation Comments Mean Corpuscular Hemoglobin Concent (test code = 786-4) 33.9 31-35 [facility] [place]neyRed Cell Distribution Uuhxf3050-30-23 09:11:00* Test Item Value Reference Range Interpretation Comments Red Cell Distribution Width (test code = 85089-0) 13.8 11.7 -14.4 [facility]neyPlatelet Fzggj0568-70-55 09:11:00* Test Item Value Reference Range Interpretation Comments Platelet Count (test code = 777-3) 302 140-360 [facility] McKinneyNeutrophils (%) (Auto)2019-03-01 09:11:00 * Test Item Value Reference Range Interpretation Comments Neutrophils (%) (Auto) (test code = 69918-3) 72.5 38.7-80.0 [facility] McKinneyLymphocytes (%) (Auto)2019-03-01 09:11:00 * Test Item Value Reference Range Interpretation Comments Lymphocytes (%) (Auto) (test code = 736-9) 20.6 18.0-39.1 [facility]neyMonocytes (%) (Auto)2019-03-01 09:11:00* Test Item Value Reference Range Interpretation Comments Monocytes (%) (Auto) (test code = 5905-5) 5.8 4.4-11.3 [facility]neyEosinophils (%) (Auto)2019-03-01 09:11:00 * Test Item Value Reference Range Interpretation Comments Eosinophils (%) (Auto) (test code = 713-8) 0.3 0.0-6.0 [facility]neyBasophils (%) (Auto)2019-03-01 09:11:00* Test Item Value Reference Range Interpretation Comments Basophils (%) (Auto) (test code = 706-2) 0.1 0.0-1.0 [facility]neyIM GRANULOCYTES %2019-03-01 09:11:00* Test Item Value Reference Range Interpretation Comments IM GRANULOCYTES % (test code = IM GRANULOCYTES %) 0.7 0.0- 1.0 [facility]neyNeutrophils # (Auto)2019-03-01 09:11:00* Test Item Value Reference Range Interpretation Comments Neutrophils # (Auto) (test code = 751-8) 5.4 2.1-6.9 [facility] McKinneyLymphocytes # (Auto)2019-03-01 09:11:00* Test Item Value Reference Range Interpretation Comments Lymphocytes # (Auto) (test code = 49672-9) 1.5 1.0-3.2 [facility]neyMonocytes # (Auto)2019-03-01 09:11:00* Test Item Value Reference Range Interpretation Comments Monocytes # (Auto) (test code = 742-7) 0.4 0.2-0.8 [facility]neyEosinophils # (Auto)2019-03-01 09:11:00* Test Item Value Reference Range Interpretation Comments Eosinophils # (Auto) (test code = 711-2) 0.0 0.0-0.4 [facility]neyBasophils # (Auto)2019-03-01 09:11:00* Test Item Value Reference Range Interpretation Comments Basophils # (Auto) (test code = 704-7) 0.0 0.0-0.1 [facility]neyAbsolute Immature Granulocyte (auto 2019-03-01 09:11:00* Test Item Value Reference Range Interpretation Comments Absolute Immature Granulocyte (auto (alexa t code = Absolute Immature Granulocyte (auto) 0.05 0-0.1 [facility] McKinneyWhite Blood Dnuvs5603-09-17 09:11:00* Test Item Value Reference Range Interpretation Comments White Blood Count (test code = 6690-2) 7.43 4.8-10.8 [facility] McKinneyRed Blood Imfyo3108-26-36 09:11:00* Test Item Value Reference Range Interpretation Comments Red Blood Count (test code = 789-8) 4.27 3.6-5.1 [facility] McKinneyHemoglobin2019-10-01 09:11:00* Test Item Value Reference Range Interpretation Comments Hemoglobin (test code = 17737-5) 12.6 12.0-16.0 [facility] McKinneyHematocrit2019-10-01 09:11:00* Test Item Value Reference Range Interpretation Comments Hematocrit (test code = 4544-3) 37.2 34.2-44.1 [facility]neyMean Corpuscular Ffinrg3776-08-27 09:11:00* Test Item Value Reference Range Interpretation Comments Mean Corpuscular Volume (test code = 787-2) 87.1 81-99 [facility]neyMean Corpuscular Zuvgevakfb7986-05-19 09:11:00* Test Item Value Reference Range Interpretation Comments Mean Corpuscular Hemoglobin (test code = 785-6) 29.5 28-32 [facility] McKinneyMe Corpuscular Hemoglobin Concent 2019-03-01 09:11:00* Test Item Value Reference Range Interpretation Comments Mean Corpuscular Hemoglobin Concent (test code = 786-4) 33.9 31-35 [facility] McKinneyRed Cell Distribution Sopgd7327-87-28 09:11:00* Test Item Value Reference Range Interpretation Comments Red Cell Distribution Width (test code = 00173-7) 13.8 11.7 -14.4 [facility]neyPlatelet Fyptl8229-10-11 09:11:00* Test Item Value Reference Range Interpretation Comments Platelet Count (test code = 777-3) 302 140-360 [facility] McKinneyNeutrophils (%) (Auto)2019-03-01 09:11:00 * Test Item Value Reference Range Interpretation Comments Neutrophils (%) (Auto) (test code = 66998-1) 72.5 38.7-80.0 [facility] McKinneyLymphocytes (%) (Auto)2019-03-01 09:11:00 * Test Item Value Reference Range Interpretation Comments Lymphocytes (%) (Auto) (test code = 736-9) 20.6 18.0-39.1 [facility]neyMonocytes (%) (Auto)2019-03-01 09:11:00* Test Item Value Reference Range Interpretation Comments Monocytes (%) (Auto) (test code = 5905-5) 5.8 4.4-11.3 [facility]neyEosinophils (%) (Auto)2019-03-01 09:11:00 * Test Item Value Reference Range Interpretation Comments Eosinophils (%) (Auto) (test code = 713-8) 0.3 0.0-6.0 [facility]neyBasophils (%) (Auto)2019-03-01 09:11:00* Test Item Value Reference Range Interpretation Comments Basophils (%) (Auto) (test code = 706-2) 0.1 0.0-1.0 [facility]neyIM GRANULOCYTES %2019-03-01 09:11:00* Test Item Value Reference Range Interpretation Comments IM GRANULOCYTES % (test code = IM GRANULOCYTES %) 0.7 0.0- 1.0 [facility]neyNeutrophils # (Auto)2019-03-01 09:11:00* Test Item Value Reference Range Interpretation Comments Neutrophils # (Auto) (test code = 751-8) 5.4 2.1-6.9 [facility] McKinneyLymphocytes # (Auto)2019-03-01 09:11:00* Test Item Value Reference Range Interpretation Comments Lymphocytes # (Auto) (test code = 34192-7) 1.5 1.0-3.2 [facility]neyMonocytes # (Auto)2019-03-01 09:11:00* Test Item Value Reference Range Interpretation Comments Monocytes # (Auto) (test code = 742-7) 0.4 0.2-0.8 [facility]neyEosinophils # (Auto)2019-03-01 09:11:00* Test Item Value Reference Range Interpretation Comments Eosinophils # (Auto) (test code = 711-2) 0.0 0.0-0.4 [facility]neyBasophils # (Auto)2019-03-01 09:11:00* Test Item Value Reference Range Interpretation Comments Basophils # (Auto) (test code = 704-7) 0.0 0.0-0.1 [facility]neyAbsolute Immature Granulocyte (auto 2019-03-01 09:11:00* Test Item Value Reference Range Interpretation Comments Absolute Immature Granulocyte (auto (alexa t code = Absolute Immature Granulocyte (auto) 0.05 0-0.1 [facility] McKinneyCHEST SINGLE (NOT PORTABLE)2019-03-01 09:11:00 [facility] [address] [place] [address] Patient Name: ANGELA ESPINOSA MR #: [id number] : 1975 Age/Sex: 43/F Req #: [id number] Adm Physician: Ordered by: NATALIA AVILA DO Report #: [id number] Location: ER Room/Bed: Procedure: [id number] DX/CHEST SINGLE (NOT PORTABLE) Exam Date: 03/01/19 E xam Time: 0830 REPORT STATUS: Inés d EXAMINATION: CHEST SINGLE [...] COPY TO: NATALIA MINOR DO Urine Opiates Nkoydf2040-46-60 08:45:00* Test Item Value Reference Range Interpretation Comments Urine Opiates Screen (test code = 73524-7) N NEGATIVE ALL TESTS PERFORMED MANUALLY ON [facility] TOX/SEE TESTB[facility] – McKinneyUrine Barbiturates Hjvzcu7753-15-93 08:45:00* Test Item Value Reference Range Interpretation Comments Urine Barbiturates Screen (test code = 317010841) N NEGA TIVE [facility] McKinneyUrine Phencyclidine Muddvk5026-04-16 08:45:00* Test Item Value Reference Range Interpretation Comments Urine Phencyclidine Screen (test code = 27431-1) N NEGAT HENRY [facility] McKinneyUrine Amphetamines Ilxomd6001-39-54 08:45:00* Test Item Value Reference Range Interpretation Comments Urine Amphetamines Screen (test code = 69106-2) N NEGATI VE [facility]neyUrine Methamphetamines Pwgjzy3081-10-84 08:45:00* Test Item Value Reference Range Interpretation Comments Urine Methamphetamines Screen (test code = Urine Methampheta mines Screen) N NEGATIVE [facility] McKinneyUrine Benzodiazepines Xzxpvq0100-07-92 08:45:00* Test Item Value Reference Range Interpretation Comments Urine Benzodiazepines Screen (test code = 37978-3) P NEG ATIVE [facility] McKinneyUrine Cocaine Pjlxfj8380-07-07 08:45:00* Test Item Value Reference Range Interpretation Comments Urine Cocaine Screen (test code = 3398-5) N NEGATIVE [facility] McKinneyUrine Cannabinoids Aldxox2589-32-61 08:45:00* Test Item Value Reference Range Interpretation Comments Urine Cannabinoids Screen (test code = 38221-2) P NEGATI VE THESE RESULTS ARE FOR MEDICAL TREATMENT ONLYTHIS REPORT CONTAINS UNCONFIR MED SCREENING RESULTS*POSITIVE RESULTS WILL BE CONFIRMED BY REFERENCE LAB UPON R EQUEST CUT-OFFDRUG CLASS CONCENTRATION ng/mLAmphetamines 1000Methamphetamines 1000Cocaine 300Opiate 300Phencyc lidine 25Cannabinoid 50Barbiturates 300Benzodiazepine 300Methadone 300[facility] McKinneyUrine Methadone Qlobmk0666-51-80 08:45:00* Test Item Value Reference Range Interpretation Comments Urine Methadone Screen (test code = 59778-4) N NEGATIVE [facility] McKinneyUrine Mmpz9574-15-47 08:45:00* Test Item Value Reference Range Interpretation Comments Urine Test (test code = 2106-3) NEGATIVE NEGATIVE [facility] McKinneyUrine Opiates Stngzh6753-50-80 08:45:00* Test Item Value Reference Range Interpretation Comments Urine Opiates Screen (test code = 36302-5) N NEGATIVE ALL TESTS PERFORMED MANUALLY ON [employer] TOX/SEE TESTB[facility] & [facility] – McKinneyUrine Barbiturates Zdzdty1348-60-10 08:45:00* Test Item Value Reference Range Interpretation Comments Urine Barbiturates Screen (test code = 420544859) N NEGA TIVE [facility] McKinneyUrine Phencyclidine Itnnim9520-82-79 08:45:00* Test Item Value Reference Range Interpretation Comments Urine Phencyclidine Screen (test code = 01819-4) N NEGAT HENRY [facility] McKinneyUrine Amphetamines Gnrifi8075-26-63 08:45:00* Test Item Value Reference Range Interpretation Comments Urine Amphetamines Screen (test code = 45725-3) N NEGATI VE [facility] McKinneyUrine Methamphetamines Uclkbw2004-30-73 08:45:00* Test Item Value Reference Range Interpretation Comments Urine Methamphetamines Screen (test code = Urine Methampheta mines Screen) N NEGATIVE [facility] McKinneyUrine Benzodiazepines Paxomg4903-41-75 08:45:00* Test Item Value Reference Range Interpretation Comments Urine Benzodiazepines Screen (test code = 44400-9) P NEG ATIVE [facility] McKinneyUrine Cocaine Dynfib4285-84-30 08:45:00* Test Item Value Reference Range Interpretation Comments Urine Cocaine Screen (test code = 3398-5) N NEGATIVE [facility] McKinneyUrine Cannabinoids Vxohtf4108-14-19 08:45:00* Test Item Value Reference Range Interpretation Comments Urine Cannabinoids Screen (test code = 94182-3) P NEGATI VE THESE RESULTS ARE FOR MEDICAL TREATMENT ONLYTHIS REPORT CONTAINS UNCONFIR MED SCREENING RESULTS*POSITIVE RESULTS WILL BE CONFIRMED BY REFERENCE LAB UPON R EQUEST CUT-OFFDRUG CLASS CONCENTRATION ng/mLAmphetamines 1000Methamphetamines 1000Cocaine 300Opiate 300Phencyc lidine 25Cannabinoid 50Barbiturates 300Benzodiazepine 300Methadone 300[facility] CenterU[facility] Methadone Abfkrb3804-96-28 08:45:00* Test Item Value Reference Range Interpretation Comments Urine Methadone Screen (test code = 27621-7) N NEGATIVE [facility] McKinneyUrine Owmy0041-44-15 08:45:00* Test Item Value Reference Range Interpretation Comments Urine Test (test code = 2106-3) NEGATIVE NEGATIVE [facility]neyUrine Opiates Rdvvsd4066-05-25 08:45:00* Test Item Value Reference Range Interpretation Comments Urine Opiates Screen (test code = 90683-7) N NEGATIVE ALL TESTS PERFORMED MANUALLY ON [employer] TOX/SEE TESTBaylor [facility] & [facility] – McKinneyUrine Barbiturates Hklwjr1394-33-91 08:45:00* Test Item Value Reference Range Interpretation Comments Urine Barbiturates Screen (test code = 654174084) N NEGA TIVE [facility] McKinneyUrine Phencyclidine Djjjzc3170-30-19 08:45:00* Test Item Value Reference Range Interpretation Comments Urine Phencyclidine Screen (test code = 31118-0) N NEGAT HENRY [facility] McKinneyUrine Amphetamines Lbdjbq6220-60-87 08:45:00* Test Item Value Reference Range Interpretation Comments Urine Amphetamines Screen (test code = 80646-1) N NEGATI VE [facility] McKinneyUrine Methamphetamines Hsgxeg6125-22-76 08:45:00* Test Item Value Reference Range Interpretation Comments Urine Methamphetamines Screen (test code = Urine Methampheta mines Screen) N NEGATIVE [facility] McKinneyUrine Benzodiazepines Gmxmoa3026-92-10 08:45:00* Test Item Value Reference Range Interpretation Comments Urine Benzodiazepines Screen (test code = 42579-1) P NEG ATIVE [facility] McKinneyUrine Cocaine Bktlkj3199-78-63 08:45:00* Test Item Value Reference Range Interpretation Comments Urine Cocaine Screen (test code = 3398-5) N NEGATIVE [facility] McKinneyUrine Cannabinoids Vuptnh3385-04-04 08:45:00* Test Item Value Reference Range Interpretation Comments Urine Cannabinoids Screen (test code = 73497-7) P NEGATI VE THESE RESULTS ARE FOR MEDICAL TREATMENT ONLYTHIS REPORT CONTAINS UNCONFIR MED SCREENING RESULTS*POSITIVE RESULTS WILL BE CONFIRMED BY REFERENCE LAB UPON R EQUEST CUT-OFFDRUG CLASS CONCENTRATION ng/mLAmphetamines 1000Methamphetamines 1000Cocaine 300Opiate 300Phencyc lidine 25Cannabinoid 50Barbiturates 300Benzodiazepine 300Methadone 300[facility] CenterUrine Methadone Exczlo4194-53-17 08:45:00* Test Item Value Reference Range Interpretation Comments Urine Methadone Screen (test code = 84312-8) N NEGATIVE [facility] McKinneyCT ABDOMEN/PELVIS G7204-76-69 15:40:00 [place] [address] Patient Name: ANGELA ESPINOSA MR #: [id number] : 1975 Age/Sex: 43/F Req #: [id number] [facility] Physician: Ordered by: NATALIA AVILA DO Report #: [id number] Location: ER Room/Bed: Procedure: [id number] CT/CT ABDOMEN/PELVIS W Exam Date: 02/26/19 Exam [...] 02/26/191546 COPY TO: NATALIA AVILA DO Sodium Xvkly5560-44-17 14:00:00* Test Item Value Reference Range Interpretation Comments Sodium Level (test code = 2951-2) 140 136-145 [facility]neyPotassium Lomtn8469-48-45 14:00:00* Test Item Value Reference Range Interpretation Comments Potassium Level (test code = 2823-3) 3.7 3.5-5.1 [facility] McKinneyChloride Xclnx0056-45-54 14:00:00* Test Item Value Reference Range Interpretation Comments Chloride Level (test code = 2075-0) 108 98-107 H [facility] McKinneyCarbon Dioxide Ujiry1121-20-63 14:00:00* Test Item Value Reference Range Interpretation Comments Carbon Dioxide Level (test code = 8-9) 23 22-29 [facility] McKinneyAnion Qsd0927-85-80 14:00:00* Test Item Value Reference Range Interpretation Comments Anion Gap (test code = 24428-4) 12.7 8-16 [facility] McKinneyBlood Urea Nanfuiyn1888-62-64 14:00:00* Test Item Value Reference Range Interpretation Comments Blood Urea Nitrogen (test code = 3094-0) 9 7-26 [facility] McKinneyCreatinine2019-09-28 14:00:00* Test Item Value Reference Range Interpretation Comments Creatinine (test code = 2160-0) 0.93 0.57-1.11 [facility] McKinneyBUN/Creatinine Gvzqu8593-04-65 14:00:00* Test Item Value Reference Range Interpretation Comments BUN/Creatinine Ratio (test code = 3097-3) 10 6-25 [facility] McKinneyEstimat Glomerular Filtration Rate 2019-02-26 14:00:00* Test Item Value Reference Range Interpretation Comments Estimat Glomerular Filtration Rate (test code = 897018658) > 60 >60 Ranges were taken from the National Kidney Disease Education Program and the [facility] literature.Reference ranges:60 or greater: Cmpfok55-02 ( for 3 consecutive months): Chronic kidney disease 15 or less: Kidney failureB[facility] McKinneyGlucose Xxtlv1810-22-08 14:00:00* Test Item Value Reference Range Interpretation Comments Glucose Level (test code = DIB7870) 84 74-118 [facility] McKinneyCalcium Ghwfc7981-72-46 14:00:00* Test Item Value Reference Range Interpretation Comments Calcium Level (test code = 55961-6) 9.3 8.4-10.2 [facility] McKinneyTotal Havpfxsew1435-65-32 14:00:00* Test Item Value Reference Range Interpretation Comments Total Bilirubin (test code = 1975-2) 0.3 0.2-1.2 [facility] McKinneyAspartate Amino Transf (AST/SGOT) 2019-02-26 14:00:00* Test Item Value Reference Range Interpretation Comments Aspartate Amino Transf (AST/SGOT) (test code = Aspartate Amino Transf (AST/SGOT)) 17 5-34 [facility] McKinneyAlanine Aminotransferase (ALT/SGPT) 2019-02-26 14:00:00* Test Item Value Reference Range Interpretation Comments Alanine Aminotransferase (ALT/SGPT) (test code = 1742-6) 23 0-55 [facility] McKinneyTotal Ajjdohe2088-05-56 14:00:00* Test Item Value Reference Range Interpretation Comments Total Protein (test code = 2885-2) 6.5 6.5-8.1 [facility] McKinneyAlbumin2019-09-28 14:00:00* Test Item Value Reference Range Interpretation Comments Albumin (test code = 1751-7) 3.5 3.5-5.0 [facility] McKinneyGlobulin2019-09-28 14:00:00* Test Item Value Reference Range Interpretation Comments Globulin (test code = 46425-0) 3.0 2.3-3.5 [facility] McKinneyAlbumin/Globulin Zxktk9149-03-06 14:00:00 * Test Item Value Reference Range Interpretation Comments Albumin/Globulin Ratio (test code = 1759-0) 1.2 0.8-2.0 [facility] McKinneyAlkaline Tgwjixvmuzd2735-02-57 14:00:00* Test Item Value Reference Range Interpretation Comments Alkaline Phosphatase (test code = 6768-6) 96 40-150 [facility] McKinneyUrine TJU2859-33-96 13:14:00* Test Item Value Reference Range Interpretation Comments Urine WBC (test code = 5821-4) 0-5 0-5 [facility] McKinneyUrine WNA4806-96-40 13:14:00* Test Item Value Reference Range Interpretation Comments Urine RBC (test code = 38091-7) 0-5 0-5 [facility] McKinneyUrine Unqmfyho0323-19-84 13:14:00* Test Item Value Reference Range Interpretation Comments Urine Bacteria (test code = 55606-0) FEW NONE [facility] McKinneyUrine Epithelial Xojcx6548-25-18 13:14:00 * Test Item Value Reference Range Interpretation Comments Urine Epithelial Cells (test code = 18154-5) FEW NONE [facility] McKinneyUrine Calcium Oxalate Goxyyqxt4669-41-09 13:14:00* Test Item Value Reference Range Interpretation Comments Urine Calcium Oxalate Crystals (test code = 5774-5) FEW FE W [facility] McKinneyUrine [id number] 13:14:00* Test Item Value Reference Range Interpretation Comments Urine WBC (test code = 5821-4) 0-5 0-5 [facility] McKinneyUrine UWC6251-59-93 13:14:00* Test Item Value Reference Range Interpretation Comments Urine RBC (test code = 46003-2) 0-5 0-5 [facility] McKinneyUrine Nmsczhjh0521-42-80 13:14:00* Test Item Value Reference Range Interpretation Comments Urine Bacteria (test code = 06318-0) FEW NONE [facility] McKinneyUrine Epithelial Kgccx8969-45-06 13:14:00 * Test Item Value Reference Range Interpretation Comments Urine Epithelial Cells (test code = 80774-0) FEW NONE [facility] McKinneyUrine Calcium Oxalate Mqmifqit6586-15-04 13:14:00* Test Item Value Reference Range Interpretation Comments Urine Calcium Oxalate Crystals (test code = 5774-5) FEW W [facility] McKinneyUrine Calcium Oxalate Sywkryng0972-21-22 13:14:00* Test Item Value Reference Range Interpretation Comments Urine Calcium Oxalate Crystals (test code = 5774-5) FEW W [facility] McKinneyUrine Calcium Oxalate Otgthvru5355-16-61 13:14:00* Test Item Value Reference Range Interpretation Comments Urine Calcium Oxalate Crystals (test code = 5774-5) [facility]W [facility] Oxalate Fgdpwqnh2948-60-37 13:14:00* Test Item Value Reference Range Interpretation Comments Urine Calcium Oxalate Crystals (test code = 5774-5) FEW [facility] WorthWhite Blood Hifaq3988-44-89 13:12:00* Test Item Value Reference Range Interpretation Comments White Blood Count (test code = 6690-2) 7.29 4.8-10.8 [facility] McKinneyRed Blood Qdlvp0406-06-80 13:12:00* Test Item Value Reference Range Interpretation Comments Red Blood Count (test code = 789-8) 4.27 3.6-5.1 [facility]neyHemoglobin2019-09-28 13:12:00* Test Item Value Reference Range Interpretation Comments Hemoglobin (test code = 60667-3) 12.5 12.0-16.0 [facility]neyHematocrit2019-09-28 13:12:00* Test Item Value Reference Range Interpretation Comments Hematocrit (test code = 4544-3) 36.8 34.2-44.1 [facility] McKinneyMean Corpuscular Shfjzm6289-39-96 13:12:00* Test Item Value Reference Range Interpretation Comments Mean Corpuscular Volume (test code = 787-2) 86.2 81-99 [facility] McKinneyMean Corpuscular Huvgzkgxlh6748-90-86 13:12:00* Test Item Value Reference Range Interpretation Comments Mean Corpuscular Hemoglobin (test code = 785-6) 29.3 28-32 [facility] McKinneyMean Corpuscular Hemoglobin Concent 2019-02-26 13:12:00* Test Item Value Reference Range Interpretation Comments Mean Corpuscular Hemoglobin Concent (test code = 786-4) 34.0 31-35 [facility] McKinneyRed Cell Distribution Yuuyb3205-38-25 13:12:00* Test Item Value Reference Range Interpretation Comments Red Cell Distribution Width (test code = 51926-1) 13.5 11.7 -14.4 [facility] McKinneyPlatelet Toahw7324-58-57 13:12:00* Test Item Value Reference Range Interpretation Comments Platelet Count (test code = 777-3) 308 140-360 [facility] McKinneyNeutrophils (%) (Auto)2019-02-26 13:12:00 * Test Item Value Reference Range Interpretation Comments Neutrophils (%) (Auto) (test code = 44773-1) 68.2 38.7-80.0 [facility] McKinneyLymphocytes (%) (Auto)2019-02-26 13:12:00 * Test Item Value Reference Range Interpretation Comments Lymphocytes (%) (Auto) (test code = 736-9) 24.6 18.0-39.1 [facility] McKinneyMonocytes (%) (Auto)2019-02-26 13:12:00* Test Item Value Reference Range Interpretation Comments Monocytes (%) (Auto) (test code = 5905-5) 5.3 4.4-11.3 [facility]neyEosinophils (%) (Auto)2019-02-26 13:12:00 * Test Item Value Reference Range Interpretation Comments Eosinophils (%) (Auto) (test code = 713-8) 1.5 0.0-6.0 [facility] McKinneyBasophils (%) (Auto)2019-02-26 13:12:00* Test Item Value Reference Range Interpretation Comments Basophils (%) (Auto) (test code = 706-2) 0.1 0.0-1.0 [facility] McKinneyIM GRANULOCYTES %2019-02-26 13:12:00* Test Item Value Reference Range Interpretation Comments IM GRANULOCYTES % (test code = IM GRANULOCYTES %) 0.3 0.0- 1.0 [facility]neyNeutrophils # (Auto)2019-02-26 13:12:00* Test Item Value Reference Range Interpretation Comments Neutrophils # (Auto) (test code = 751-8) 5.0 2.1-6.9 [facility] McKinneyLymphocytes # (Auto)2019-02-26 13:12:00* Test Item Value Reference Range Interpretation Comments Lymphocytes # (Auto) (test code = 97241-3) 1.8 1.0-3.2 [facility]neyMonocytes # (Auto)2019-02-26 13:12:00* Test Item Value Reference Range Interpretation Comments Monocytes # (Auto) (test code = 742-7) 0.4 0.2-0.8 [facility]neyEosinophils # (Auto)2019-02-26 13:12:00* Test Item Value Reference Range Interpretation Comments Eosinophils # (Auto) (test code = 711-2) 0.1 0.0-0.4 [facility]neyBasophils # (Auto)2019-02-26 13:12:00* Test Item Value Reference Range Interpretation Comments Basophils # (Auto) (test code = 704-7) 0.0 0.0-0.1 [facility] McKinneyAbsolute Immature Granulocyte (auto 2019-02-26 13:12:00* Test Item Value Reference Range Interpretation Comments Absolute Immature Granulocyte (auto (alexa t code = Absolute Immature Granulocyte (auto) 0.02 0-0.1 [facility] McKinneyLipase2019-09-28 13:07:00* Test Item Value Reference Range Interpretation Comments Lipase (test code = 3040-3) 38 8-78 [facility] McKinneyUrine Waaat8493-92-26 12:55:00* Test Item Value Reference Range Interpretation Comments Urine Color (test code = 5778-6) YELLOW YELLOW [facility] McKinneyUrine Uygnvze6491-25-48 12:55:00* Test Item Value Reference Range Interpretation Comments Urine Clarity (test code = 98619-7) CLEAR CLEAR [facility] McKinneyUrine Specific Kkjqyoq7201-28-45 12:55:00 * Test Item Value Reference Range Interpretation Comments Urine Specific Central (test code = 5811-5) >=1.030 1.010-1.02 5 [facility] McKinneyUrine eC5959-20-57 12:55:00* Test Item Value Reference Range Interpretation Comments Urine pH (test code = 45584-1) 6.5 5-7 [facility] McKinneyUrine Leukocyte Slkfvsnz1112-36-58 12:55:00* Test Item Value Reference Range Interpretation Comments Urine Leukocyte Esterase (test code = 17739-5) NEGATIVE NEGATIV E [facility] McKinneyUrine Vpxkdub9644-32-20 12:55:00* Test Item Value Reference Range Interpretation Comments Urine Nitrite (test code = 51093-0) NEGATIVE NEGATIVE [facility] McKinneyUrine Iqnlssg7723-88-02 12:55:00* Test Item Value Reference Range Interpretation Comments Urine Protein (test code = 34291-3) TRACE NEGATIVE H [facility] McKinneyUrine Glucose (UA)2019-02-26 12:55:00* Test Item Value Reference Range Interpretation Comments Urine Glucose (UA) (test code = 09923-1) NEGATIVE NEGATIVE [facility] McKinneyUrine Xwpbpbd6292-98-66 12:55:00* Test Item Value Reference Range Interpretation Comments Urine Ketones (test code = 82583-4) NEGATIVE NEGATIVE [facility] McKinneyUrine Legatrrutzjo6597-23-74 12:55:00* Test Item Value Reference Range Interpretation Comments Urine Urobilinogen (test code = 24238-0) 0.2 0.2-1 [facility] McKinneyUrine Ugnljmecm4393-55-13 12:55:00* Test Item Value Reference Range Interpretation Comments Urine Bilirubin (test code = 1977-8) NEGATIVE NEGATIVE [facility] Eatha1695-51-25 12:55:00* Test Item Value Reference Range Interpretation Comments Urine Blood (test code = 42714-2) NEGATIVE NEGATIVE [facility]neyUrine Vdphn2898-92-94 12:55:00* Test Item Value Reference Range Interpretation Comments Urine Color (test code = 5778-6) YELLOW YELLOW [facility]neyUrine Tbxggfi6555-15-72 12:55:00* Test Item Value Reference Range Interpretation Comments Urine Clarity (test code = 19185-2) CLEAR CLEAR [facility] McKinneyUrine Specific Uamrgqv3275-23-52 12:55:00 * Test Item Value Reference Range Interpretation Comments Urine Specific Central (test code = 5811-5) >=1.030 1.010-1.02 5 [facility] McKinneyUrine vG5811-78-37 12:55:00* Test Item Value Reference Range Interpretation Comments Urine pH (test code = 72760-5) 6.5 5-7 [facility]neyUrine Leukocyte Gmkdljbg6337-37-62 12:55:00* Test Item Value Reference Range Interpretation Comments Urine Leukocyte Esterase (test code = 07797-4) NEGATIVE NEGATIV E [facility]neyUrine Jebptkt0556-28-75 12:55:00* Test Item Value Reference Range Interpretation Comments Urine Nitrite (test code = 10495-4) NEGATIVE NEGATIVE [facility]neyUrine Czwfozw3828-12-61 12:55:00* Test Item Value Reference Range Interpretation Comments Urine Protein (test code = 00177-3) TRACE NEGATIVE H [facility] McKinneyUrine Glucose (UA)2019-02-26 12:55:00* Test Item Value Reference Range Interpretation Comments Urine Glucose (UA) (test code = 57994-3) NEGATIVE NEGATIVE [facility]neyUrine Pnkchye4171-52-12 12:55:00* Test Item Value Reference Range Interpretation Comments Urine Ketones (test code = 21755-4) NEGATIVE NEGATIVE [facility] McKinneyUrine Ozkoqscoqpeh4217-71-16 12:55:00* Test Item Value Reference Range Interpretation Comments Urine Urobilinogen (test code = 74674-4) 0.2 0.2-1 [facility]neyUrine Piksndfoo8421-78-55 12:55:00* Test Item Value Reference Range Interpretation Comments Urine Bilirubin (test code = 1977-8) NEGATIVE NEGATIVE [facility]neyUrine Sujvt6127-92-04 12:55:00* Test Item Value Reference Range Interpretation Comments Urine Blood (test code = 18703-4) NEGATIVE NEGATIVE [facility] McKinneyLIVER FUNCTION OXDQO5095-17-67 09:03:00* Test Item Value Reference Range Interpretation [...] code = ALKP) 98 U/L 32-104 N NZUEPU9543-10-02 09:03:00* Test Item Value Reference Range Interpretation Comments LIPASE (test code = LIP) 42 U/L 0-190 N URINALYSIS WPEVMYDP0855-10-72 08:56:00* Test Item Value Reference Range Interpretation [...] = LEUU) SMALL NEGA TIVE A UA PWIYTDKHYOI8080-73-11 08:56:00* Test Item Value Reference Range Interpretation Comments UA WBC (test code = WBCU) 0-2 #WBC/HPF 0-2 UA RBC (test code = RBCU) 0-2 #RBC/HPF 0-2 UA BACTERIA (test code = BACU) 1+ /HPF NONE-TRACE A UA SQUAMOUS CELLS (test code = SQU) 1+ /LPF NONE-TRACE A UR HCG [id number] 08:56:00* Test Item Value Reference Range Interpretation Comments UR HCG QUAL (test code = HCGQLU) NEGATIVE NEGATIVE URINALYSIS VNIMXUDG8574-32-57 08:52:00* Test Item Value Reference Range Interpretation [...] = LEUU) SMALL NEGA TIVE A UA JYTRMVACJOY8438-56-92 08:52:00* Test Item Value Reference Range Interpretation Comments UA WBC (test code = WBCU) #WBC/HPF 0-2 UA RBC (test code = RBCU) #RBC/HPF 0-2 UA BACTERIA (test code = BACU) /HPF NONE-TRACE UA SQUAMOUS CELLS (test code = SQU) /LPF NONE-TRACE UR HCG [id number] 08:52:00* Test Item Value Reference Range Interpretation Comments UR HCG QUAL (test code = HCGQLU) NEGATIVE URINALYSIS [id number] 08:52:00* Test Item Value Reference Range Interpretation [...] = LEUU) SMALL NEGA TIVE A UA BHSAGRPNLIX5327-28-51 08:52:00* Test Item Value Reference Range Interpretation Comments UA WBC (test code = WBCU) #WBC/HPF 0-2 UA RBC (test code = RBCU) #RBC/HPF 0-2 UA BACTERIA (test code = BACU) /HPF NONE-TRACE UA SQUAMOUS CELLS (test code = SQU) /LPF NONE-TRACE UR HCG [id number] 08:52:00* Test Item Value Reference Range Interpretation Comments UR HCG QUAL (test code = HCGQLU) NEGATIVE NEGATIVE URINALYSIS WVDLQHYB6125-25-09 08:52:00* Test Item Value Reference Range Interpretation [...] = LEUU) SMALL NEGA TIVE A UA OSRFJVKFOPO7736-91-73 08:52:00* Test Item Value Reference Range Interpretation Comments UA WBC (test code = WBCU) #WBC/HPF 0-2 UA RBC (test code = RBCU) #RBC/HPF 0-2 UA BACTERIA (test code = BACU) /HPF NONE-TRACE UA SQUAMOUS CELLS (test code = SQU) /LPF NONE-TRACE UR HCG [id number] 08:52:00* Test Item Value Reference Range Interpretation Comments UR HCG QUAL (test code = HCGQLU) NEGATIVE LACTIC ACID [id number] 08:40:00* Test Item Value Reference Range Interpretation Comments LACTIC ACID POC (test code = LACTP) 1.59 mmol/L 0.9-1.70 N CBC W/AUTO [id number] 08:38:00* Test Item Value Reference Range Interpretation [...] 0.04 x10 3/uL 0.0-0.20 N CHEMISTRY 8 NPMLEDC8299-08-34 08:25:00* Test Item Value Reference Range Interpretation [...] GFRP) 79 58-1 35 N CHEMISTRY 8 TMLPVUU6712-56-89 08:25:00* Test Item Value Reference Range Interpretation [...] = GFRP) 79 58-1 35 N URINALYSIS ZQKPYGZN9221-00-85 09:15:00* Test Item Value Reference Range Interpretation [...] FEW #/LPF FEW Urine Source? Clean CatchSURGICAL KAYWINDXU6683-76-40 11:30:00 RUN DATE: 02/10/19 [facility] *LIVE* PAGE 1 RUN TIME: 1130 Specimen Inqui ry RUN USER: INTERFACE PATIENT: ANGELA ESPINOSA ACCT #: B [id number] LOC: P7 POD B U #: [id number] AGE/SX: 43/F ROOM: [facility] RE02[facility]: Thai Escobedo MD : 79 BED: 1 DIS: 02/09/19 STATUS: DIS IN TLOC: SPEC #: [id number] RECD: 02/08/19 STATUS: SHAGUFTA REQ #: [id number] MICHELLE: 02/08/[address] [facility] [address]: Thai Escobedo MD ENTERED: 02/08/19 SP TYPE: SURG OTHR DR: Ashwin Palomares MD, John B Jr MD Gathe,Feliz Espinoza,Jennifer DO No Primary Care Physician Faith [...] TIME: 11 30 Specimen Inquiry RUN USER: AMANDA ODEN SPEC #: [id number] PATIENT: ANGELA ESPINOSA #[id number] (Co ntinued) FINAL DIAGNOSIS A-TERMINAL ILEUM, BIOPSY: [...] with focal hyperplastic changes. - See luther delarosa. GROSS DESCRIPTION A-TERMINAL ILEUM: Multiple pieces of [...] ON NEXT PAGE RUN DATE: 02/10/19 [facility] *LIVE* PAGE 3 RUN TIME: 1130 Specimen Inquiry RUN USER: INTERFACE SPEC #: [id number] PATIENT: ANGELA ESPINOSA #[id number] (Continued)--- --------- Signed SIGNATURE ON Simon Mooney MD 02/10/19 1130 END OF REPORT [id number] 07:44:00* Test Item Value Reference Range Interpretation Comments GLUBED (test code = GLUBED) 109 mg/dL 74-106 H Performed by certified flash welding machine operator at [facility] MIBQBJ2884-99-32 12:21:00* Test Item Value Reference Range Interpretation Comments GLUBED (test code = GLUBED) 92 MG/DL 70-105 N [id number] 08:10:00* Test Item Value Reference Range Interpretation Comments GLUBED (test code = GLUBED) 73 MG/DL 70-105 N RENAL FUNCTION [id number] 06:02:00* Test Item Value Reference Range Interpretation [...] code = PHOS) 2.2 mg/dL 2.7-4.5 L [id number] 05:57:00* Test Item Value Reference Range Interpretation Comments MAGNESIUM (test code = MAG) 1.8 mg/dL 1.4-2.6 N [id number] 05:44:00* Test Item Value Reference Range Interpretation Comments GLUBED (test code = GLUBED) 88 MG/DL 70-105 N [id number] 00:19:00* Test Item Value Reference Range Interpretation Comments GLUBED (test code = GLUBED) 98 MG/DL 70-105 N [id number] 12:33:00* Test Item Value Reference Range Interpretation Comments GLUBED (test code = GLUBED) 76 MG/DL 70-105 N [id number] 08:46:00* Test Item Value Reference Range Interpretation Comments GLUBED (test code = GLUBED) 72 MG/DL 70-105 N BASIC METABOLIC [id number] 06:55:00* Test Item Value Reference Range Interpretation [...] CA) 8.7 mg/dL 8.8-10.2 L CBC W/AUTO [id number] 06:38:00* Test Item Value Reference Range Interpretation [...] = BA#) 0.02 x10 3/uL 0.0-0.20 N [id number] 10:15:00* Test Item Value Reference Range Interpretation Comments LIPASE (test code = LIP) 12 U/L 0-190 N [id number] 07:39:00* Test Item Value Reference Range Interpretation Comments GLUBED (test code = GLUBED) 75 MG/DL 70-105 N BASIC METABOLIC [id number] 06:45:00* Test Item Value Reference Range Interpretation [...] IGHT INCREASE FROM PREVIOUS HX CBC W/AUTO [id number] 05:32:00* Test Item Value Reference Range Interpretation [...] 0.03 x10 3/uL 0.0-0.20 N BASIC METABOLIC [id number] 12:04:00* Test Item Value Reference Range Interpretation [...] code = CA) 6.9 mg/dL 8.8-10.2 L [id number] 11:36:00* Test Item Value Reference Range Interpretation Comments GLUBED (test code = GLUBED) 83 MG/DL 70-105 N - CT ABD PELVIS W/[id number] 09:29:00Patient Name: ANGELA ESPINOSA Unit No: [id number] EXAMS: CPT CODE: [id number] CT ABD PELVIS W/CONT 23725 CT abdomen and pelvis with IV contrast. [...] aspiration or pneu monia. Name: ANGELA ESPINOSA [facility] Phys: Nabor Richards [address] OB: 1975 Age: 43 Sex: [place] [address] Loc: P.0209 1 Exam Date: Status: ADM IN PH: FAX: PAGE 1 Signed Report (CONTINUED) Patient Name: ANGELA ESPINOSA Unit No: [id number] EXAMS: CPT CODE: [id number] CT ABD PELVIS W/CONT 22687 <Continued> Bilateral nephrolithiasis without evidence of obstructive uropathy. Hepatic steatosis. at 0929 Reported and signed by: NAREN CANTU M.D. CC: Faith Quan MD; Thai Escobedo MD; Nabor Moss Technologist: LENY Templeton(R),(CT) CTDI: 35.96 DLP: 1887 Trscr Dt/Tm: 02/06/2019 (0929) by:[email or web address] Printed Date/Time: 02/06/2019 (0932) Name: ANGELA ESPINOSA [facility] Phys: Nabor Richards [address] : 1975 Age: 43 Sex: [place] [address] Loc: P.0209 1 Exam Date: 02/06/2019 Status: ADM IN PH: FAX: PAGE 2 Signed Report [id number] 08:53:00* Test Item Value Reference Range Interpretation Comments LIPASE (test code = LIP) 13 U/L 0-190 N CBC W/AUTO [id number] 06:38:00* Test Item Value Reference Range Interpretation [...] = BA#) 0.02 x10 3/uL 0.0-0.20 N [id number] 06:25:00* Test Item Value Reference Range Interpretation Comments GLUBED (test code = GLUBED) 88 MG/DL 70-105 N [id number] 23:28:00* Test Item Value Reference Range Interpretation Comments GLUBED (test code = GLUBED) 83 MG/DL 70-105 N [id number] 12:31:00* Test Item Value Reference Range Interpretation Comments AMYLASE (test code = JANIE) 82 U/L 0-100 N [id number] 12:31:00* Test Item Value Reference Range Interpretation Comments LIPASE (test code = LIP) 16 U/L 0-190 N [id number] 11:57:00* Test Item Value Reference Range Interpretation Comments TROPONIN-I (test code = TROPI) < 0.30 ng/mL 0.00-0.30 N INTERPRETATIVE DATA:Negative or inconclusive reuslts do not exclude myocardialinfarction. Serial tests at appropriate intervals may benecessary. RECOLLECT DUE TO GROSS HEMOLYSISLACTIC [id number] 09:37:00* Test Item Value Reference Range Interpretation Comments LACTIC ACID (test code = LACT) 10.6 mg/dL 4.5-18.0 N [id number] 06:11:00* Test Item Value Reference Range Interpretation Comments GLUBED (test code = GLUBED) 123 MG/DL 70-105 H ARTERIAL BLOOD [id number] 05:40:00* Test Item Value Reference Range Interpretation [...] code = THB) 14.5 g/dL 12.0-16.0 N [id number] 04:37:00* Test Item Value Reference Range Interpretation Comments GLUBED (test code = GLUBED) 122 MG/DL 70-105 H [id number] 04:29:00* Test Item Value Reference Range Interpretation Comments TROPONIN-I (test code = TROPI) < 0.30 ng/mL 0.00-0.30 N INTERPRETATIVE DATA:Negative or inconclusive reuslts do not exclude myocardialinfarction. Serial tests at appropriate intervals may benecessary. BASIC METABOLIC [id number] 04:22:00* Test Item Value Reference Range Interpretation [...] = CA) 6.7 mg/dL 8.8-10.2 L LACTIC [id number] 04:20:00* Test Item Value Reference Range Interpretation Comments LACTIC ACID (test code = LACT) 25.9 mg/dL 4.5-18.0 HH Critical Value reported toFirst Name:HILARY Last Name:RADHA READ BACK AND VERIFIEDby PSVITLANA, on 02/05/19, @ 0420. [id number] 04:20:00* Test Item Value Reference Range Interpretation Comments MAGNESIUM (test code = MAG) 1.9 mg/dL 1.4-2.6 N CBC W/AUTO [id number] 04:09:00* Test Item Value Reference Range Interpretation [...] 3/uL 0.0-0.20 N - PULM VENT PERF [id number] 04:06:00Patient Name: ANGELA ESPINOSA Unit No: [id number] EXAMS: CPT CODE: [id number] PULM VENT PERF IMAG 26911 AFTER HOURS SERVICE ON: 02/05/2019 4:02 AM [...] M.D. CC: Homer Bird MD; Faith Quan MD; Thai Escobedo MD Technologist: ALEXIS VALDOVINOS [facility] Dt/Tm: 02/05/2019 (040) by:[email or web address] Printed Date/Time : 02/05/2019 (408) [facility] Phys: Homer Lopez MD [address] DOB: 1975 Age: 43 Sex: [place] [address] Loc: P.0209 1 Exam Date: 02/05/2019 Status: ADM IN PH: FAX: PAGE 1 Signed Report - CT HEAD/BRAIN W/O [id number] 00:56:00Patient Name: ANGELA ESPINOSA Unit No: [id number] EXAMS: CPT CODE: [id number] CT HEAD/BRAIN W/O CONT 05599 AFTER HOURS SERVICE ON: 02/05/2019 12:56 AM [...] Technologist: Melani Kaur CTDI: 62.55 DLP: 1063 [facility] Dt/Tm: 02/05/2019 (005) by:[email or web address] Printed Date/Time: 02/05/2019 (010) [facility] Phys: Homer Lopez MD [address] JEREZ: 1975 Age: 43 Sex: [place] [address] Loc: P.0209 1 Exam Date: 02/05/2019 Status: ADM IN PH: FAX: PAGE 1 Signed Report [id number] 00:38:00* Test Item Value Reference Range Interpretation Comments D-DIMER (test code = DDIMER) 3292 ng/mLFEU 0-500 HH Critical Value reported toFirst Name:JOHN Last Name:FAIZAN READ BACK AND VERIFIEDby MARIA DE JESUS, on 02/05/19, @ 0038.THE DDIMER METHOD IS USED IN THE EXCLUSION OF DEEP VEINTHROMBOSIS AND/OR PULMONARY EMBOLISM AND THE CLINICAL CUT-OFF VALUE FOR EXCLUSION (500 NG/ML FEU) OF THESE CONDITIONSIS VALIDATED BY THE DOVETAILER OF THE METHOD. A NEGATIVE DDIMER RESULT WHEN COMBINED WITH A CLINICALASSESSMENT OF LOW PRETEST PROBABILITY HAS BEEN SHOWN TO HAVEA HIGH NEGATIVE PREDICTIVE VALUE OF DVT OR PE. D-DIMER VALUES >500 ng/mL ARE NOT DIAGNOSTIC FOR DVT,PEOR DIC WITHOUT OTHER CONFIRMATORY TESTS AND APPROPRIATECLINICAL EVALUATIONS. [id number] 00:37:00* Test Item Value Reference Range Interpretation Comments ACETAMINOPHEN (test code = ACET) 5 mcg/mL 10-30 L INTERPRETATIVE DATA:Toxic manifestations have been observed at serumconcentrations >100 mcg/mL, however the toxic range isgenerally reported at>200 mcg/mL. The therapeutic range varies and has been reported inliterature to be in the range of 10-30 mcg/mL. [id number] 00:37:00* Test Item Value Reference Range Interpretation Comments SALICYLATE (test code = ANAHI) 3 mcg/mL 30-100 L INTERPRETATIVE DATA:Therapeutic range: 30.0 - 100.0 mcg/mL [id number] 00:37:00* Test Item Value Reference Range Interpretation Comments ALCOHOL (test code = ALC) <10 mg/dl 0-450 N DRUGS OF ABUSE SCREEN [id number] 00:00:00* Test Item Value Reference Range Interpretation [...] 25 ng/mL. The method performed by the [facility]for [facility] Drugs of Abuse is performed as a medical screeningtest only. If confirmation testing is required, thephysician must order the confirmatory test within 5 days ofthe specimen's collection date. The specimen will be sentout to an independent reference laboratory. - XR CHEST 1 [id number] 23:55:00Patient Name: ANGELA ESPINOSA Unit No: [id number] Report Has Been Amended EXAMS: CPT CODE: [id number] XR CHEST 1 V 39182 Addendum - 02/04/2019 SIGNED 02/04/2019 ADDENDUM: [id number] RAD/CXR1 Addendum: Above results were called to Dr. Bird at11:52 PM. FOR INTERNAL CODING PURPOSES ONLY RESULT CODE: CVR at 1326 Reported and signed by: JEET GARCIA M.D. Transcribed: 02/04/2019 (1186) [email or web address] Report Chest one view Dictation location N [...] inspiratory effort. Mild upper lobe atelectasis. at 3531 Reported and signed by: JEET GARCIA M.D. CC: Homer Bird MD; Faith Quan MD Technologist: Milagro Carty Time: DAP (Gy m2): Air Kerma (mGy): Trscr Dt/Tm: 02/04/2019 (9446) by:SilasMVT Printed Date/Time: 02/04/2019 (6155) Name: JESÚS REJIA [facility] Phys: Debbie Lopez MD [address] : 1975 Age: 43 Sex: [place] [address] Loc: P.ERS Exam Date: 02/04/2019 Status: REG ER PH: FAX: PAGE 1 Signed Report ARTERIAL BLOOD [id number] 23:51:00* Test Item Value Reference Range Interpretation [...] g/dL 12.0-16.0 N - XR CHEST 1 [id number] 23:51:00Patient Name: ANGELA ESPINOSA Unit No: [id number] EXAMS: CPT CODE: [id number] XR CHEST 1 V 92757 Chest one view Dictation location N 13 [...] m2): Air Kerma (mGy): Trscr Dt/Tm: 02/04/2019 (6662) by:SilasMVT Printed Date/Time: 02/04/2019 (8641) Name: ANGELA ESPINOSA [facility] Phys: Homer Lopez MD [address] : 1975 Age: 43 Sex: [place] [address] Loc: P.ERS Exam Date: 02/04/2019 Status: REG ER PH: FAX: PAGE 1 Signed Report TROPONIN I [id number] 22:54:00* Test Item Value Reference Range Interpretation Comments TROPONIN I RAPID (test code = TROPIRAP) 0.00 ng/mL 0.00-0.08 N - The use of serial sampling and testing protocol is a recommended practice- An elevated tropnin level alone is often not sufficient for diagnosis of myocardial infarction. [id number] 22:34:00* Test Item Value Reference Range Interpretation Comments GLUBED (test code = GLUBED) 96 MG/DL 70-105 N URINALYSIS [id number] 22:08:00* Test Item Value Reference Range Interpretation [...] = LEUU) SMALL NEGA TIVE A UA [id number] 22:08:00* Test Item Value Reference Range Interpretation Comments UA WBC (test code = WBCU) 11-20 #WBC/HPF 0-2 A UA RBC (test code = RBCU) 3-5 #RBC/HPF 0-2 A UA BACTERIA (test code = BACU) 3+ /HPF NONE-TRACE A UA SQUAMOUS CELLS (test code = SQU) 1+ /LPF NONE-TRACE A UA YEAST (test code = YEASTU) 3+ /HPF NONE SEEN A URINALYSIS [id number] 21:49:00* Test Item Value Reference Range Interpretation [...] = LEUU) SMALL NEGA TIVE A UA [id number] 21:49:00* Test Item Value Reference Range Interpretation Comments UA WBC (test code = WBCU) #WBC/HPF 0-2 UA RBC (test code = RBCU) #RBC/HPF 0-2 UA BACTERIA (test code = BACU) /HPF NONE-TRACE UA SQUAMOUS CELLS (test code = SQU) /LPF NONE-TRACE URINALYSIS [id number] 21:49:00* Test Item Value Reference Range Interpretation [...] = LEUU) SMALL NEGA TIVE A UA [id number] 21:49:00* Test Item Value Reference Range Interpretation Comments UA WBC (test code = WBCU) #WBC/HPF 0-2 UA RBC (test code = RBCU) #RBC/HPF 0-2 UA BACTERIA (test code = BACU) /HPF NONE-TRACE UA SQUAMOUS CELLS (test code = SQU) /LPF NONE-TRACE - CT ABD PELVIS [id number] 21:45:00Patient Name: ANGELA ESPINOSA Unit No: [id number] EXAMS: CPT CODE: [id number] CT ABD PELVIS W/CONT 93099 CT SCAN OF THE ABDOMEN AND PELVIS [...] mid pole left kidney. Name: ANGELA ESPINOSA [facility] Phys: Homer Lopez MD [address] ADAIRB: 1975 Age: 43 Sex: F [place] [address] Loc: P.ERS Exam Date: 02/04/2019 Status: REG ER PH: FAX: PAGE 1 Signed Report (CONTINU ED) Patient Name: ANGELA ESPINOSA Unit No: [id number] XAMS: CPT CODE: [id number] CT ABD PELVIS W/CONT 43802 <Continued> at 5 Reported and signed by: JEET GARCIA M.D. CC: Homer Bird MD; Faith Quan MD Technologist: Kim Horn (CT),(MR) CTDI: 27.92 DLP: 1520 Trscr Dt/Tm: 02/04/2019 (2144) by:SilasMVT Printed Date/Time: 02/04/2019 (2147) Name: ANGELA ESPINOSA [facility] Phys: Homer Lopez MD [address] : 1975 Age: 43 Sex: [place] [address] Loc: P.ERS Exam Date: 02/04/2019 Status : REG ER PH: FAX: PAGE 2 Sign ed Report COMPREHENSIVE METABOLIC [id number] 21:16:00* Test Item Value Reference Range Interpretation [...] code = ALKP) 104 U/L 32-104 N [id number] 21:16:00* Test Item Value Reference Range Interpretation Comments LIPASE (test code = LIP) 22 U/L 0-190 N PROTHROMBIN [id number] 20:55:00* Test Item Value Reference Range Interpretation [...] heart valves; 2.5-3.5recurrent systemic embolism. CBC W/AUTO [id number] 20:44:00* Test Item Value Reference Range Interpretation [...] BA#) 0.03 x10 3/uL 0.0-0.20 N URINALYSIS [id number] 11:30:00* Test Item Value Reference Range Interpretation [...] Urine Source? Clean CatchDRUGS OF ABUSE SCREEN [id number] 11:20:00* Test Item Value Reference Range Interpretation [...] code = MET[place]URN) NEGATIVE <300 ng/mL URINALYSIS [id number] 11:14:00* Test Item Value Reference Range Interpretation [...] Urine Source? Clean CatchDRUGS OF ABUSE SCREEN [id number] 11:09:00* Test Item Value Reference Range Interpretation [...] = METHAURN) NEGATIVE <300 ng/mL BASIC METABOLIC [id number] 08:41:00* Test Item Value Reference Range Interpretation [...] CA) 8.8 mg/dL 8.5-10.1 N HCG SERUM [id number] 08:41:00* Test Item Value Reference Range Interpretation Comments HCG SERUM QUAL (test code = HCGQL) NEGATIVE NEGATIVE This HCGQL test is NOT applicable for MALE patients.Check with nurse about probable order error.If Tumor Marker Test needed, nurse should order test "HCGTU"(Test #550.80821) [id number] 08:41:00* Test Item Value Reference Range Interpretation Comments TROPONIN-I (test code = TROPI) <0.015 ng/mL 0-0.045 N HEPATIC FUNCTION [id number] 08:37:00* Test Item Value Reference Range Interpretation [...] reference range due to change in reagent. [id number] 08:37:00* Test Item Value Reference Range Interpretation Comments LIPASE (test code = LIP) 85 U/L 73.0-393.0 N BASIC METABOLIC [id number] 08:29:00* Test Item Value Reference Range Interpretation [...] code = CA) mg/dL 8.5-10.1 HCG SERUM [id number] 08:29:00* Test Item Value Reference Range Interpretation Comments HCG SERUM QUAL (test code = HCGQL) NEGATIVE NEGATIVE This HCGQL test is NOT applicable for MALE patients.Check with nurse about probable order error.If Tumor Marker Test needed, nurse should order test "HCGTU"(Test #550.14728) [id number] 08:29:00* Test Item Value Reference Range Interpretation Comments TROPONIN-I (test code = TROPI) ng/mL 0-0.045 BASIC METABOLIC [id number] 08:28:00* Test Item Value Reference Range Interpretation [...] code = CA) mg/dL 8.5-10.1 HCG SERUM [id number] 08:28:00* Test Item Value Reference Range Interpretation Comments HCG SERUM QUAL (test code = HCGQL) NEGATIVE [id number] 08:28:00* Test Item Value Reference Range Interpretation Comments TROPONIN-I (test code = TROPI) ng/mL 0-0.045 TROPONIN I [id number] 08:19:00* Test Item Value Reference Range Interpretation [...] only if similarmethodology is used. CBC W/O [id number] 08:17:00* Test Item Value Reference Range Interpretation [...] MPV) 9.4 fL 6.7-11.0 N CBC W/O [id number] 08:14:00* Test Item Value Reference Range Interpretation [...] MPV) fL 6.7-11.0 - XR CHEST 1 [id number] 07:53:00 FAX: Dany Kaur MD [phone] [place]: [address] St: REG Name: ANGELA DUPREE [facility] : [birth year] Age/S: 43/F [address] Unit #: [id number] Loc: [place] [address] Phys: Dany Kaur MD Acct: [id number] Dis Date: Status: REG ER PHONE #: [phone] Exam Date: 01/31/2019 0744 FAX #: [phone] Reason: CHEST PAIN EXAMS: CPT CODE: [id number] XR CHEST 1 V 22077 REASON FOR EXAM: CHEST PAIN EXAM ORDER [...] [place]) Trnscrd Date/Time/By: 01/31/2019 (0753) : By: RayoL Orig Print D/T: S: 0 01/31/2019 (0756) PAGE 1 Signed Re port - CT ABD PELVIS [id number] 11:27:00 Name: ANGELA ESPINOSA [facility] : 1975 Age/S: 43 / F [address] Unit #: [id number] Loc: [place] [address] Phys: Ashutosh Quijano DO Acct: [id number] Di s Date: Status: REG ER PHONE #: [phone] Exam Date: 01/27/2019 1050 FAX #: [phone] Reason: abd pain, r/o appendicitis EXAMS: CPT CODE: [id number] CT ABD PELVIS W/CONT 63562 REASON FOR EXAM: abd pain, r/o appendicitis EXAM ORDER DATE: 01/27/2019 8:34 AM Ordering MNenita: Nyla Quijano DO PROCEDURE: - CT ABD [...] Forrest,RT(R),CT CTDI: DLP: Trnscb Da te/Time: 01/27/2019 (7199) tCOTY Orig Print D/T: S: 0 01/27/2019 (2888) PAGE 1 Signed Report URINALYSIS [id number] 10:00:00* Test Item Value Reference Range Interpretation [...] #/LPF FEW Urine Source? Clean CatchBASIC METABOLIC [id number] 09:54:00* Test Item Value Reference Range Interpretation [...] CA) 8.6 mg/dL 8.5-10.1 N HEPATIC FUNCTION [id number] 09:54:00* Test Item Value Reference Range Interpretation [...] reference range due to change in reagent. [id number] 09:54:00* Test Item Value Reference Range Interpretation Comments LIPASE (test code = LIP) 72 U/L 73.0-393.0 L HCG SERUM [id number] 09:54:00* Test Item Value Reference Range Interpretation Comments HCG SERUM QUAL (test code = HCGQL) NEGATIVE NEGATIVE This HCGQL test is NOT applicable for MALE patients.Check with nurse about probable order error.If Tumor Marker Test needed, nurse should order test "HCGTU"(Test #550.75849) [id number] 09:54:00* Test Item Value Reference Range Interpretation Comments TROPONIN-I (test code = TROPI) <0.015 ng/mL 0-0.045 N BASIC METABOLIC [id number] 09:42:00* Test Item Value Reference Range Interpretation [...] code = CA) mg/dL 8.5-10.1 HEPATIC FUNCTION [id number] 09:42:00* Test Item Value Reference Range Interpretation [...] TOTAL (test code = ALKP) IUnit/L 45-117 [id number] 09:42:00* Test Item Value Reference Range Interpretation Comments LIPASE (test code = LIP) U/L 73.0-393.0 HCG SERUM [id number] 09:42:00* Test Item Value Reference Range Interpretation Comments HCG SERUM QUAL (test code = HCGQL) NEGATIVE NEGATIVE This HCGQL test is NOT applicable for MALE patients.Check with nurse about probable order error.If Tumor Marker Test needed, nurse should order test "HCGTU"(Test #550.68065) [id number] 09:42:00* Test Item Value Reference Range Interpretation Comments TROPONIN-I (test code = TROPI) ng/mL 0-0.045 BASIC METABOLIC [id number] 09:38:00* Test Item Value Reference Range Interpretation [...] code = CA) mg/dL 8.5-10.1 HEPATIC FUNCTION [id number] 09:38:00* Test Item Value Reference Range Interpretation [...] TOTAL (test code = ALKP) IUnit/L 45-117 [id number] 09:38:00* Test Item Value Reference Range Interpretation Comments LIPASE (test code = LIP) U/L 73.0-393.0 HCG SERUM [id number] 09:38:00* Test Item Value Reference Range Interpretation Comments HCG SERUM QUAL (test code = HCGQL) NEGATIVE [id number] 09:38:00* Test Item Value Reference Range Interpretation Comments TROPONIN-I (test code = TROPI) ng/mL 0-0.045 CBC W/O [id number] 09:37:00* Test Item Value Reference Range Interpretation [...] = MPV) 8.9 fL 6.7-11.0 N URINALYSIS [id number] 09:36:00* Test Item Value Reference Range Interpretation [...] HPF NONE Urine Source? Clean CatchCBC W/O [id number] 09:29:00* Test Item Value Reference Range Interpretation [...] MPV) fL 6.7-11.0 - XR CHEST 1 [id number] 09:11:00 FAX: Nyla Quijano DO [place]: B St: REG Name: ANGELA DUPREE [facility] : [birth year] Age/S: 43/F [address] [facility] Unit #: [id number] Loc: [place] [address] Phys: Nyla Quijano DO Acct: [id number] Dis Date: Status: REG ER PHONE #: [phone] Exam Date: 01/27/2019 0843 FAX #: [phone] Reason: CHEST PAIN EXAMS: CPT CODE: [id number] XR CHEST 1 V 14396 REASON FOR EXAM: CHEST PAIN Exam Order Date: 01/27/2019 8:32 AM Ordering P[place]: Nyla Quijano DO PROCEDURE: - XR CHEST [...] 01/27/2019 (0911) : By: [email or web address] Orig P rint D/T: S: 01/27/2019 (0973) PAGE 1 Signed Report [id number] 15:27:00* Test Item Value Reference Range Interpretation Comments TROPONIN-I (test code = TROPI) <0.015 ng/mL 0-0.045 N - CT ABD PELVIS [id number] 13:50:00 Name: ANGELA ESPINOSA [facility] : 1975 Age/S: 43 / F [address] [facility] Unit #: [id number] Loc: [place] [address] Phys: Chacho Aguilar DO Acct: [id number] Dis Date: Status: REG ER PHONE #: [phone] Exam Date: 01/25/2019 132 FAX #: [phone] Reason: Lower abd pain EXAMS: CPT CODE: [id number] CT ABD PELVIS W/CONT 41189 REASON FOR EXAM: Lower abd pain EXAM ORDER DATE: 01/25/2019 8:37 AM Ordering Pillo: Chacho Aguilar DO PROCEDURE: - CT ABD [...] 1 Signed Report (CONTINUED) Name: ANGELA ESPINOSA [facility] : 1975 Age/S: 43 / F [address] [facility] Unit #: [id number] Loc: [place] [address] Phys: Chacho Aguilar DO Acct: [id number] Dis Date: Status: REG ER PHONE #: [phone] Exam Date: 01/25/2019 1328 FAX #: [phone] Reason: Lower abd pain EXAMS: CPT CODE: [id number] CT ABD PELVIS W/CONT 17716 <Continued> IMPRESSION: No acute intra-abdominal process. Hepatic steatosis. at 1350 Reported and signed by: Sanjay Roman MD CC: Vicente Bui MD; Chacho Aguilar DO Technologist:Lupillo Forrest RT(R)(CT) CTDI: DLP: Trnscb Date/Time: 01/25/2019 (8150) t.[email or web address].[email or web address] Orig Print D/T: S: 01/25/2019 (7708) PAGE 2 Signed Report BASIC METABOLIC [id number] 13:10:00* Test Item Value Reference Range Interpretation [...] CA) 9.4 mg/dL 8.5-10.1 N HEPATIC FUNCTION [id number] 13:10:00* Test Item Value Reference Range Interpretation [...] reference range due to change in reagent. [id number] 13:10:00* Test Item Value Reference Range Interpretation Comments LIPASE (test code = LIP) 77 U/L 73.0-393.0 N HCG SERUM [id number] 13:10:00* Test Item Value Reference Range Interpretation Comments HCG SERUM QUAL (test code = HCGQL) NEGATIVE NEGATIVE This HCGQL test is NOT applicable for MALE patients.Check with nurse about probable order error.If Tumor Marker Test needed, nurse should order test "HCGTU"(Test #550.62123) [id number] 13:10:00* Test Item Value Reference Range Interpretation Comments TROPONIN-I (test code = TROPI) <0.015 ng/mL 0-0.045 N BASIC METABOLIC [id number] 12:58:00* Test Item Value Reference Range Interpretation [...] code = CA) mg/dL 8.5-10.1 HEPATIC FUNCTION [id number] 12:58:00* Test Item Value Reference Range Interpretation [...] TOTAL (test code = ALKP) IUnit/L 45-117 [id number] 12:58:00* Test Item Value Reference Range Interpretation Comments LIPASE (test code = LIP) U/L 73.0-393.0 HCG SERUM [id number] 12:58:00* Test Item Value Reference Range Interpretation Comments HCG SERUM QUAL (test code = HCGQL) NEGATIVE NEGATIVE This HCGQL test is NOT applicable for MALE patients.Check with nurse about probable order error.If Tumor Marker Test needed, nurse should order test "HCGTU"(Test #550.32922) [id number] 12:58:00* Test Item Value Reference Range Interpretation Comments TROPONIN-I (test code = TROPI) ng/mL 0-0.045 BASIC METABOLIC [id number] 12:52:00* Test Item Value Reference Range Interpretation [...] code = CA) mg/dL 8.5-10.1 HEPATIC FUNCTION [id number] 12:52:00* Test Item Value Reference Range Interpretation [...] TOTAL (test code = ALKP) IUnit/L 45-117 [id number] 12:52:00* Test Item Value Reference Range Interpretation Comments LIPASE (test code = LIP) U/L 73.0-393.0 HCG SERUM [id number] 12:52:00* Test Item Value Reference Range Interpretation Comments HCG SERUM QUAL (test code = HCGQL) NEGATIVE NEGATIVE This HCGQL test is NOT applicable for MALE patients.Check with nurse about probable order error.If Tumor Marker Test needed, nurse should order test "HCGTU"(Test #550.82301) [id number] 12:52:00* Test Item Value Reference Range Interpretation Comments TROPONIN-I (test code = TROPI) ng/mL 0-0.045 CBC W/O [id number] 12:48:00* Test Item Value Reference Range Interpretation [...] MPV) 9.0 fL 6.7-11.0 N CBC W/O [id number] 12:47:00* Test Item Value Reference Range Interpretation [...] (test code = MPV) fL 6.7-11.0 URINALYSIS [id number] 10:35:00* Test Item Value Reference Range Interpretation [...] FEW #/HPF NONE Urine Source? Clean CatchURINALYSIS [id number] 10:33:00* Test Item Value Reference Range Interpretation [...] Urine Source? Clean Catch- XR CHEST 1 [id number] 09:26:00 FAX: Marino Abbott [phone] [place]: [address] St: REG FAX: Chacho Aguilar DO Name: ANGELA ESPINOSA [facility] : 1975 Age/S: 43/F [address] [facility]: [id number] Loc: [place] [address] Phys: Chacho Aguilar DO Acct: [id number] Dis Date: Status: REG ER PHONE #: [phone] Exam Date: 01/25/2019 08 FAX #: [phone] Reason: Abdominal Pain EXAMS: CPT CODE: [id number] XR CHEST 1 V 34170 REASON FOR EXAM: Abdominal Pain Exam Order Date: 01/25/2019 8:37 AM Ordering M.D.: Chacho Aguilar DO PROCEDURE: - XR CHEST 1 V COMPARISON: Frontal chest x-ray [facility] 2018 FINDINGS: There is mild subsegmental [...] versus scarring in the lung bases. at 0926 Reported and signed by: Sanjay Roman MD CC: Vicente Bui MD; Chacho Aguilar DO Technologist: Alexa [place] ([place]) Trnscrd Date/Time/By: 01/25/2019 (925) : By: [email or web address] Orig Print D/T: S: 01/25/2019 (59) PAGE 1 Signed Report BASIC METABOLIC [id number] 10:49:00* Test Item Value Reference Range Interpretation [...] CA) 9.3 mg/dL 8.5-10.1 N HEPATIC FUNCTION [id number] 10:49:00* Test Item Value Reference Range Interpretation [...] reference range due to change in reagent. [id number] 10:49:00* Test Item Value Reference Range Interpretation Comments LIPASE (test code = LIP) 161 U/L 73.0-393.0 N CBC W/O [id number] 10:24:00* Test Item Value Reference Range Interpretation [...] MPV) 9.0 fL 6.7-11.0 N CBC W/O [id number] 10:23:00* Test Item Value Reference Range Interpretation [...] code = MPV) fL 6.7-11.0 BASIC METABOLIC [id number] 09:02:00* Test Item Value Reference Range Interpretation [...] CA) 8.8 mg/dL 8.5-10.1 N HEPATIC FUNCTION [id number] 09:02:00* Test Item Value Reference Range Interpretation [...] reference range due to change in reagent. [id number] 09:02:00* Test Item Value Reference Range Interpretation Comments LIPASE (test code = LIP) 196 U/L 73.0-393.0 N HCG SERUM [id number] 09:02:00* Test Item Value Reference Range Interpretation Comments HCG SERUM QUAL (test code = HCGQL) NEGATIVE NEGATIVE This HCGQL test is NOT applicable for MALE patients.Check with nurse about probable order error.If Tumor Marker Test needed, nurse should order test "HCGTU"(Test #550.75659) BASIC METABOLIC [id number] 09:00:00* Test Item Value Reference Range Interpretation [...] code = CA) mg/dL 8.5-10.1 HEPATIC FUNCTION [id number] 09:00:00* Test Item Value Reference Range Interpretation [...] TOTAL (test code = ALKP) IUnit/L 45-117 [id number] 09:00:00* Test Item Value Reference Range Interpretation Comments LIPASE (test code = LIP) U/L 73.0-393.0 HCG SERUM [id number] 09:00:00* Test Item Value Reference Range Interpretation Comments HCG SERUM QUAL (test code = HCGQL) NEGATIVE NEGATIVE This HCGQL test is NOT applicable for MALE patients.Check with nurse about probable order error.If Tumor Marker Test needed, nurse should order test "HCGTU"(Test #550.50700) URINALYSIS [id number] 08:54:00* Test Item Value Reference Range Interpretation [...] NONE A Urine Source? Clean CatchBASIC METABOLIC [id number] 08:53:00* Test Item Value Reference Range Interpretation [...] code = CA) mg/dL 8.5-10.1 HEPATIC FUNCTION [id number] 08:53:00* Test Item Value Reference Range Interpretation [...] TOTAL (test code = ALKP) IUnit/L 45-117 [id number] 08:53:00* Test Item Value Reference Range Interpretation Comments LIPASE (test code = LIP) U/L 73.0-393.0 HCG SERUM [id number] 08:53:00* Test Item Value Reference Range Interpretation Comments HCG SERUM QUAL (test code = HCGQL) NEGATIVE CBC W/O [id number] 08:46:00* Test Item Value Reference Range Interpretation [...] MPV) 9.0 fL 6.7-11.0 N CBC W/O [id number] 08:45:00* Test Item Value Reference Range Interpretation [...] code = MPV) fL 6.7-11.0 BASIC METABOLIC [id number] 08:16:00* Test Item Value Reference Range Interpretation [...] CA) 9.4 MG/DL 8.5-10.1 N HEPATIC FUNCTION [id number] 08:16:00* Test Item Value Reference Range Interpretation [...] code = ALKP) 96 Unit/L 45-117 N [id number] 08:16:00* Test Item Value Reference Range Interpretation Comments LIPASE (test code = LIP) 83 Unit/L 114-286 L BASIC METABOLIC [id number] 08:11:00* Test Item Value Reference Range Interpretation [...] CA) 9.4 MG/DL 8.5-10.1 N HEPATIC FUNCTION [id number] 08:11:00* Test Item Value Reference Range Interpretation [...] TOTAL (test code = ALKP) Unit/L 45-117 [id number] 08:11:00* Test Item Value Reference Range Interpretation Comments LIPASE (test code = LIP) 83 Unit/L 114-286 L HCG [id number] 08:05:00* Test Item Value Reference Range Interpretation [...] 48 hours UA RFLX MICR CULT IF [id number] 08:05:00* Test Item Value Reference Range Interpretation [...] for culture: Dysuria/FrequencyUA RFLX MICR CULT IF [id number] 08:05:00* Test Item Value Reference Range Interpretation [...] URINE: CLEAN CATCHIndication for culture: Dysuria/FrequencyCBC W/AUTO [id number] 08:02:00* Test Item Value Reference Range Interpretation [...] (test code = MDIFF) NO DIFF/SCN CRITERIA [id number] 16:54:00 RUN DATE: 12/29/18 [facility] - LAB *LIVE* PAGE 1 RUN TIME: 1654 Specimen Inqui ry RUN USER: INTERFACE PATIENT: ANGELA ESPINOSA ACCT #: [id number] LOC: Sahra U #: [id number] AGE/SX: 43/F ROOM: [facility] RE12/26/18REG DR: Sammy Irene MD : 79 BED: 1 DIS: 12/28/18 STATUS: DIS IN TLOC: SPEC #: [id number] RECD: 12/28/18 STATUS: [place] REQ #: [id number] MICHELLE: 12/27/[address] [facility] [address]: Sammy Irene MD ENTERED: 12/28/18 SP TYPE: SURG OTHR DR: No Marissa aura or Family Physician Self Referred Segun Felix MDORDERED: AB/PAS RANJAN, SURG PATH LVL 4/2, PATH STAIN GROU COPIES TO: No Primary or Family Phys[place] [address] [address] [email or web address] Segun Alfonso MD [address] [address] HISTOLOGY: TISSUE ID BLK PCS MARIO LEV PROCEDURE DISPOSITION ____ __ ____ ___ ___ ___ DUODENUM, NOS A 1 2 STOMACH, NOS B 1 1 AB/PAS RANJAN STOMACH, NOS B 1 2 PATH STAIN GROU PROCEDURES: ALBLUE (12/28/18-822) PAS (12/28/18) SURG PATH LVL 4 (12/01) PATH STAIN GROU (12/28/18) TISSUES: A. DUOD ENUM, NOS - DUODENAL BIOPSY B. STOMACH, NOS - GASTRIC BIOPSY CLI NICAL HISTORY ACUTE PANCREATITIS CONTIN UED ON NEXT PAGE RUN DATE: 12/29/18 [facility] - LAB *LIVE* PAGE 2 RUN TIME: 1654 Specimen Inquiry RUN USER: INTERFACE SPEC #: [id number] LORI FISHER: ANGELA ESPINOSA #[id number] (Continued) CPT CODES CPT CODE(S): 32722U0 , 24604 , 56019 , , , , FINAL DIAGNOSIS A. [...] all as B. ba/nr Grossing performed at [facility] Pathology, [address] [place] [address], [address], [place] [address]. Aerospace Project Manager: Edd Hopkins M.D. MICROSCOPIC DESCRIPTION A. Duoden [...] organisms. Signed SIGNATURE ON FILE Darren Shah Cleve 12/29/18 8175 END OF REPORT BASIC METABOLIC [id number] 04:41:00* Test Item Value Reference Range Interpretation [...] CA) 8.2 MG/DL 8.5-10.1 L CBC W/AUTO [id number] 04:33:00* Test Item Value Reference Range Interpretation [...] = MDIFF) NO DIFF/SCN CRITERIA COMPREHENSIVE METABOLIC [id number] 05:28:00* Test Item Value Reference Range Interpretation [...] ALKP) 77 Unit/L 45-117 N CBC W/AUTO [id number] 05:09:00* Test Item Value Reference Range Interpretation [...] = MDIFF) NO DIFF/SCN CRITERIA COMPREHENSIVE METABOLIC [id number] 07:45:00* Test Item Value Reference Range Interpretation [...] code = ALKP) 80 Unit/L 45-117 N [id number] 07:45:00* Test Item Value Reference Range Interpretation Comments LIPASE (test code = LIP) 93 Unit/L 114-286 L CBC W/AUTO [id number] 07:29:00* Test Item Value Reference Range Interpretation [...] = MDIFF) NO DIFF/SCN CRITERIA GLYCOSYLATED HEMOGLOBIN [id number] 13:11:00* Test Item Value Reference Range Interpretation Comments GLYCOSYLATED HEMOGLOBIN (HA1C) (test code = GLYHGB) 5.4 % A1C 4. 2-6.3 N ESTIMATED AVERAGE GLUCOSE (test code = EAG) 108 MG/DLest COMPREHENSIVE METABOLIC [id number] 13:06:00* Test Item Value Reference Range Interpretation [...] = LDL/HDL) 2.74 Ratio 1.48-3.22 Avg N [id number] 13:06:00* Test Item Value Reference Range Interpretation Comments PHOSPHOROUS (test code = PHOS) 3.6 MG/DL 2.5-4.9 N [id number] 13:06:00* Test Item Value Reference Range Interpretation Comments LIPASE (test code = LIP) 160 Unit/L 114-286 N [id number] 13:06:00* Test Item Value Reference Range Interpretation Comments MAGNESIUM (test code = MAG) 1.7 MG/DL 1.8-2.4 L CBC W/AUTO [id number] 12:54:00* Test Item Value Reference Range Interpretation [...] NO DIFF/SCN CRITERIA - CT ABD PELVIS [id number] 09:17:00 Patient Name: ANGELA ESPINOSA Unit No: [id number] EXAMS: CPT CODE: [id number] CT ABD PELVIS W/CONT 68710 CT OF THE ABDOMEN AND PELVIS PERFORMED [...] helpful. 2. Prominence of the urinary bladder [facility] NAME: ISMAEL ESPINOSALICA Radiolo gy Department PHYS: Freddy Gandhi [address] : 1975 AGE: 43 SEX: F [place], [place] [address] LOC: ALIVIA PHONE #: [phone] EXAM DATE: 12/25/2018 STATUS: DEP ER FAX #: [phone] RAD NO: Page 1 Signed Report 1 Patient Name: ISMAEL ESPINOSALICA Unit No: [id number] EXAMS: CPT CODE: [id number] CT ABD PELVIS W/CONT 11128 <Continued> 3. Status post cholecystectomy, hysterectomy and [...] RT CTDI: 21.55 DLP: 1247.13 Trnscrbd D/ (77) [facility] NAME: ANGELA ESPINOSA Radiology Department PHYS: Freddy Gandhi [address] : 1975 AGE: 43 SEX: F [place] [address] LOC: [employer] PHONE #: [phone] EXAM DATE: 12/25/2018 STATUS: DEP ER FAX #: [phone] RAD NO: Page 2 Signed Report 1 Patient Name: ANGELA ESPINOSA Unit No: [id number] EXAMS: CPT CODE: [id number] CT ABD PELVIS W/CONT 92935 <Continued> Orig Print D/T: S: 12/25/2018 (0921) [facility] Rad[facility] Department PHYS: Freddy Gandhi [address] : 1975 AGE: 43 SEX: F [place] [address] LOC: [email or web address] PHONE #: [phone] EXAM DATE: 12/25/2018 STATUS: DEP ER FAX #: [phone] RAD NO: Page 3 Signed Report 1 [...] (DESIRABLE) 130-159 (BORDERLINE) >=160 (HIGH) COMPREHENSIVE METABOLIC [id number] 07:10:00* Test Item Value Reference Range Interpretation [...] code = ALKP) 96 units/L 46-116 N [id number] 07:10:00* Test Item Value Reference Range Interpretation Comments AMYLASE (test code = JANIE) 137 units/L 30-110 H [id number] 07:10:00* Test Item Value Reference Range Interpretation Comments LIPASE (test code = LIP) 1154 units/L 73-393 H UA RFLX MICR CULT IF [id number] 06:32:00* Test Item Value Reference Range Interpretation [...] SEEN Indication for culture: Suprapubic PainUR HCG [id number] 06:32:00* Test Item Value Reference Range Interpretation Comments UR HCG QUAL (test code = HCGQLU) NEGATIVE 1. Very dilute urine specimens, as indicated by a lowspecific gravity, may not contain member services representative levels ofhCG. 2. False negative results may occur when the levels of hCGare below the sensitivity level of the test. If is still suspected, a first morningurine specimen should be collected 48 hours later andtested. Indication for culture: Suprapubic PainCBC W/AUTO [id number] 06:28:00* Test Item Value Reference Range Interpretation [...] PLTMR) NORMAL YOANA L DRUGS OF ABUSE [id number] 06:28:00* Test Item Value Reference Range Interpretation Comments UR COCAINE (test code = COCAU) NEGATIVE NEGATIVE DETECTION CUT OFF: 150 ng/mL UR CANNABINOIDS (test code = CANU) POSITIVE NEGATIVE A RESULTS CALLED TO WILMA NurREAD BACK & CONFIRMED? Y.BY MISAEL 12/25/18 0627. DETECTION CUT OFF: 50 ng/mL UR AMPHETAMINE (test code = AMPHU) NEGATIVE NEGATIVE DETECTION CUT OFF: 500 ng/mL UR BARBITURATE QUAL (test code = BARBQLU) NEGATIVE NEGATIVE DETECTION CUT OFF: 200 ng/mL UR BENZODIAZEPINE (test code = BENZU) POSITIVE NEGATIVE A RESULTS CALLED TO WILMA NurREAD BACK & CONFIRMED? Y.BY JOSE. 12/25/18 0627. DETECTION CUT OFF: 150 ng/mL UR OPIATES QUAL (test code = OPIAQLU) NEGATIVE NEGATIVE DETECTION CUT OFF: 100 ng/mL UR PHENCYCLIDINE (PCP) (test code = PHENCU) NEGATIVE NEGATIVE DETECTION CUT OFF: 25 ng/mL UA RFLX MICR CULT IF [id number] 06:16:00* Test Item Value Reference Range Interpretation [...] RARE-FEW Indication for culture: Suprapubic PainUR HCG [id number] 06:16:00* Test Item Value Reference Range Interpretation Comments UR HCG QUAL (test code = HCGQLU) NEGATIVE 1. Very dilute urine specimens, as indicated by a lowspecific gravity, may not contain member services representative levels ofhCG. 2. False negative results may occur when the levels of hCGare below the sensitivity level of the test. If is still suspected, a first morningurine specimen should be collected 48 hours later andtested. Indication for culture: Suprapubic Pain- CT ABD PELVIS W/O [id number] 09:33:00 Name: ANGELA ESPINOSA [facility] : 1975 Age/S: 43 / F [address] Unit #: [id number] Loc: DEISY [place] [address] Phys: Hesham Acuña MD Acct: [id number] Dis Date: Status: REG ER PHONE #: [phone] Exam Date: 12/08/2018901 FAX #: [phone] Reason: right abdominal pain, recent procedure EXAMS: CPT CODE: [id number] CT ABD PELVIS W/O CONT 39598 TECHNIQUE: - CT ABD PELVIS W/O CONT [...] PAGE 1 Signed Report (CONTINUED) Name: ANGELA EPSINOSA [facility] : 1975 Age/S: 43 / F [address] [facility] Unit #: [id number] Loc: [place] [address] Phys: Hesham Acuña MD Acct: [id number] Dis Date: Status: REG ER PHONE #: [phone] Exam Date: 12/08/2018901 FAX #: [phone] Reason: right abdominal pain, recent procedure EXAMS: CPT CODE: [id number] CT ABD PELVIS W/O CONT 21049 <Continued> Retroperitoneum and mesentery: No significant lymphadenopathy. [...] Acuña MD; Vicente Bui MD Tech nologist:Elayne Forrest,RT(R),CT; Cuca CTDI: DLP: Trnscb Date/Ti me: 12/08/2018 [...] CA) 9.8 mg/dL 8.5-10.1 N HEPATIC FUNCTION [id number] 09:27:00* Test Item Value Reference Range Interpretation [...] reference range due to change in reagent. [id number] 09:27:00* Test Item Value Reference Range Interpretation Comments LIPASE (test code = LIP) 187 U/L 73.0-393.0 N BASIC METABOLIC [id number] 09:08:00* Test Item Value Reference Range Interpretation [...] code = CA) mg/dL 8.5-10.1 HEPATIC FUNCTION [id number] 09:08:00* Test Item Value Reference Range Interpretation [...] TOTAL (test code = ALKP) IUnit/L 45-117 [id number] 09:08:00* Test Item Value Reference Range Interpretation Comments LIPASE (test code = LIP) U/L 73.0-393.0 URINALYSIS [id number] 08:54:00* Test Item Value Reference Range Interpretation [...] HPF NONE Urine Source? Clean CatchUR HCG [id number] 08:54:00* Test Item Value Reference Range Interpretation Comments UR HCG QUAL (test code = HCGQLU) NEGATIVE This HCGQL test is NOT applicable for MALE patients.Check with nurse about probable order error.If Tumor Marker Test needed, nurse should order test "HCGTU"(Test #550.35048) Urine Source? Clean CatchURINALYSIS [id number] 08:54:00* Test Item Value Reference Range Interpretation [...] #/LPF FEW Urine Source? Clean CatchUR HCG [id number] 08:54:00* Test Item Value Reference Range Interpretation Comments UR HCG QUAL (test code = HCGQLU) NEGATIVE This HCGQL test is NOT applicable for MALE patients.Check with nurse about probable order error.If Tumor Marker Test needed, nurse should order test "HCGTU"(Test #550.48424) Urine Source? Clean CatchCBC W/O [id number] 08:39:00* Test Item Value Reference Range Interpretation [...] MPV) 9.2 fL 6.7-11.0 N CBC W/O [id number] 08:38:00* Test Item Value Reference Range Interpretation [...] code = MPV) fL 6.7-11.0 KIDNEY STONE [id number] 14:11:00* Test Item Value Reference Range Interpretation [...] and calcium phosphate crystals. Test performed at: [address] [address] STONE ANALYSIS (test code = STONE) () Photograph will follow under separate cover. WEIGHT OF STONE (test code = STONEWT) <1.0 mg () Test performed at: [facility] [address] SPECIMEN COMMENTS: RENAL STONES COLLECTED BY TO PHLEBOTO MIST: IN SURGERYKIDNEY STONE [id number] 14:07:00* Test Item Value Reference Range Interpretation [...] Crystals: Calcium oxalate dihydrate Test performed at: [address] [address] STONE ANALYSIS (test code = STONE) () Photograph will follow under separate cover. WEIGHT OF STONE (test code = STONEWT) 7.0 mg () Test performed at: [place] [address] KIDNEY STONE [id number] 10:14:00* Test Item Value Reference Range Interpretation Comments KIDNEY STONE ANALYSIS (test code = STONEK) 3x2x1 mm () SOURCE OF STONE (test code = STONESRC) STONE ANALYSIS COMMENT (test code = STONECOM) NIDUS STONE ANALYSIS (test code = STONE) () Photograph will follow under separate cover. WEIGHT OF STONE (test code = STONEWT) 7.0 mg () Test performed at: [place] [address] KIDNEY STONE [id number] 08:18:00* Test Item Value Reference Range Interpretation Comments KIDNEY STONE ANALYSIS (test code = STONEK) mm () Specimen received as fragments. SOURCE OF STONE (test code = STONESRC) STONE ANALYSIS COMMENT (test code = STONECOM) NIDUS STONE ANALYSIS (test code = STONE) () Photograph will follow under separate cover. WEIGHT OF STONE (test code = STONEWT) <1.0 mg () Test performed at: [facility] [address] SPECIMEN COMMENTS: RENAL STONES COLLECTED BY TO PHLEBOTO MIST: IN SURGERYCT ABDOMEN/PELVIS [id number] 20:53:00 [facility] [address] [place] [address] Patient Name: ANGELA ESPINOSA MR #: [id number] : 1975 Age/Sex: 42/F Req #: [id number] Adm Physician: GLENN TILLEY MD Ordered by: JOHN MALONEY MD Report #: [id number] Location: MED/SURG Room/Bed: [facility] Procedure: CT/CT ABDOMEN/PELVIS W Exam Date: Exam Time: [...] bladder, compatible with recent instrumentation. Signed by: Mago KingO., M.M.M. on 11/11/2018 9:14 PM Dictated By: GONZALO RUSSELL DO Dinah ctronically Signed By: GONZALO RUSSELL DO on 11/11/182113 Transcribed By: LULU on 11/11/182113 COPY TO: JOHN MALONEY MD [id number] 14:43:00 RUN DATE: 11/11/18 [place] PAGE 1 RUN TIME: 1444 Specimen Inqui ry RUN USER: INTERFACE PATIENT: ANGELA ESPINOSA ACCT #: [id number] LOC: DERREK U #: [id number] AGE/SX: 42/F ROOM: RE11/09/18[facility] DR: Sebastian Riojas MD : [birth year] BED: DIS: STATUS: [facility] TLOC: SPEC #: [id number] RECD: 11/09/18 STATUS: [place] [facility] #: [id number] MICHELLE: 11/09/[address] [facility] [address]: Sebastian Riojas MD ENTERED: 11/09/18 SP TYPE: CALCULI OTHR DR: Vicente Bui MD ORDERED: GROSS COPIES TO: Sebastian Riojas MD [address] [facility] ana [address] [place], [place] [address] Vicente Bui MD [address] [place] [address] PROCEDURES: GROSS (-1111) TISSUES: 1. LEFT KIDNEY - STONE 2. RIGHT KIDNEY - STO NE CLINICAL HISTORY COLLECTION DATE: 11/09/18 RENAL STONE FINAL DIAGNOSIS Left renal stone, removal: CALCULOUS MATERIAL (GROSS IDENTIFICATION) SUBMITTED FOR CHEMICAL ANALYSIS Right renal st one, removal CALCULOUS MATERIAL (GROSS IDENTIFICATION) SUBMITTED F OR CHEMICAL ANALYSIS RRB/sm D [phone] CONTINUED ON NEXT PAGE RUN DATE: 11/11/18 [facility] PAGE 2 RUN TIME: 1444 Specimen Inquiry RUN USER: INTERFACE SPEC #: [id number] PATIENT: ANGELA ESPINOSA #[id number] (Leila nued) MACROSCOPIC Specimen (1) is received [...] submitted for chemical analysis. GROSS PERFORMED AT [facility] [address] [place] [address], [place] [address] [phone] Signed SIGNATURE ON FILE Alin Tian MD 11/11/18 1443 END OF REPORT Sodium [id number] 12:09:00 * Test Item Value Reference Range Interpretation Comments Sodium Level (test code = 2951-2) 134 136-145 L [facility]neyPotassium [id number] 12:09:00* Test Item Value Reference Range Interpretation Comments Potassium Level (test code = 2823-3) 3.9 3.5-5.1 [facility] McKinneyChloride [id number] 12:09:00* Test Item Value Reference Range Interpretation Comments Chloride Level (test code = 2075-0) 106 98-107 [facility] McKinneyCarbon Dioxide [id number] 12:09:00* Test Item Value Reference Range Interpretation Comments Carbon Dioxide Level (test code = 2028-9) 22 22-29 [facility] McKinneyAnion [id number] 12:09:00* Test Item Value Reference Range Interpretation Comments Anion Gap (test code = 87047-5) 9.9 8-16 [facility] McKinneyBlood Urea Fvnjypfp8612-68-08 12:09:00* Test Item Value Reference Range Interpretation Comments Blood Urea Nitrogen (test code = 3094-0) 9 7-26 [facility] McKinneyCreatinine2019-06-13 12:09:00* Test Item Value Reference Range Interpretation Comments Creatinine (test code = 2160-0) 0.84 0.57-1.11 [facility] McKinneyBUN/Creatinine Dzgvc5635-48-17 12:09:00* Test Item Value Reference Range Interpretation Comments BUN/Creatinine Ratio (test code = 3097-3) 11 6-25 [facility] McKinneyEstimat Glomerular Filtration Rate 2018-11-11 12:09:00* Test Item Value Reference Range Interpretation Comments Estimat Glomerular Filtration Rate (test code = 726759468) > 60 >60 Ranges were taken from the National Kidney Disease Education Program and the [facility] Kidney Foundation literature.Reference ranges:60 or greater: Zhtuod62-03 ( for 3 consecutive months): Chronic kidney disease 15 or less: Kidney failureBaylor Scott & White Medical Center – McKinneyGlucose Pxqpl3278-75-04 12:09:00* Test Item Value Reference Range Interpretation Comments Glucose Level (test code = TNI7707) 89 74-118 [facility] McKinneyCalcium Fckyw7100-70-95 12:09:00* Test Item Value Reference Range Interpretation Comments Calcium Level (test code = 12164-1) 8.3 8.4-10.2 L [facility] McKinneyWhite Blood Jxrui8876-62-12 11:01:00* Test Item Value Reference Range Interpretation Comments White Blood Count (test code = 6690-2) 5.53 4.8-10.8 [facility] McKinneyRed Blood Lzqmp1310-86-86 11:01:00* Test Item Value Reference Range Interpretation Comments Red Blood Count (test code = 789-8) 3.97 3.6-5.1 [facility] McKinneyHemoglobin2019-06-13 11:01:00* Test Item Value Reference Range Interpretation Comments Hemoglobin (test code = 47047-9) 11.7 12.0-16.0 L [facility] McKinneyHematocrit2019-06-13 11:01:00* Test Item Value Reference Range Interpretation Comments Hematocrit (test code = 4544-3) 35.1 34.2-44.1 [facility] McKinneyMean Corpuscular Jeixmn7810-68-03 11:01:00* Test Item Value Reference Range Interpretation Comments Mean Corpuscular Volume (test code = 787-2) 88.4 81-99 [facility] McKinneyMean Corpuscular Hmshykekrz1829-23-07 11:01:00* Test Item Value Reference Range Interpretation Comments Mean Corpuscular Hemoglobin (test code = 785-6) 29.5 28-32 [facility] McKinneyMean Corpuscular Hemoglobin Concent 2018-11-11 11:01:00* Test Item Value Reference Range Interpretation Comments Mean Corpuscular Hemoglobin Concent (test code = 786-4) 33.3 31-35 [facility] McKinneyRed Cell Distribution Eqyyl1361-78-01 11:01:00* Test Item Value Reference Range Interpretation Comments Red Cell Distribution Width (test code = 89943-5) 13.5 11.7 -14.4 [facility] McKinneyPlatelet Ffmcv0330-17-74 11:01:00* Test Item Value Reference Range Interpretation Comments Platelet Count (test code = 777-3) 205 140-360 [facility] McKinneyNeutrophils (%) (Auto)2018-11-11 11:01:00 * Test Item Value Reference Range Interpretation Comments Neutrophils (%) (Auto) (test code = 30897-7) 49.1 38.7-80.0 [facility] McKinneyLymphocytes (%) (Auto)2018-11-11 11:01:00 * Test Item Value Reference Range Interpretation Comments Lymphocytes (%) (Auto) (test code = 736-9) 39.6 18.0-39.1 H [facility] McKinneyMonocytes (%) (Auto)2018-11-11 11:01:00* Test Item Value Reference Range Interpretation Comments Monocytes (%) (Auto) (test code = 5905-5) 8.0 4.4-11.3 [facility] McKinneyEosinophils (%) (Auto)2018-11-11 11:01:00 * Test Item Value Reference Range Interpretation Comments Eosinophils (%) (Auto) (test code = 713-8) 2.4 0.0-6.0 [facility] McKinneyBasophils (%) (Auto)2018-11-11 11:01:00* Test Item Value Reference Range Interpretation Comments Basophils (%) (Auto) (test code = 706-2) 0.9 0.0-1.0 [facility] McKinneyIM GRANULOCYTES %2018-11-11 11:01:00* Test Item Value Reference Range Interpretation Comments IM GRANULOCYTES % (test code = IM GRANULOCYTES %) 0.0 0.0- 1.0 [facility] McKinneyNeutrophils # (Auto)2018-11-11 11:01:00* Test Item Value Reference Range Interpretation Comments Neutrophils # (Auto) (test code = 751-8) 2.7 2.1-6.9 [facility] McKinneyLymphocytes # (Auto)2018-11-11 11:01:00* Test Item Value Reference Range Interpretation Comments Lymphocytes # (Auto) (test code = 45919-0) 2.2 1.0-3.2 [facility] McKinneyMonocytes # (Auto)2018-11-11 11:01:00* Test Item Value Reference Range Interpretation Comments Monocytes # (Auto) (test code = 742-7) 0.4 0.2-0.8 [facility] McKinneyEosinophils # (Auto)2018-11-11 11:01:00* Test Item Value Reference Range Interpretation Comments Eosinophils # (Auto) (test code = 711-2) 0.1 0.0-0.4 [facility] McKinneyBasophils # (Auto)2018-11-11 11:01:00* Test Item Value Reference Range Interpretation Comments Basophils # (Auto) (test code = 704-7) 0.1 0.0-0.1 [facility] McKinneyAbsolute Immature Granulocyte (auto 2018-11-11 11:01:00* Test Item Value Reference Range Interpretation Comments Absolute Immature Granulocyte (auto (alexa t code = Absolute Immature Granulocyte (auto) 0 0-0.1 [facility] McKinneyHemoglobin A1c Bujkcvt3549-27-47 07:48:00 * Test Item Value Reference Range Interpretation Comments Hemoglobin A1c Percent (test code = Hemoglobin A1c Percent) 5.3 4.0-7.0 [facility] McKinneyHemoglobin A1c Lwdslpz3600-32-93 07:48:00 * Test Item Value Reference Range Interpretation Comments Hemoglobin A1c Percent (test code = Hemoglobin A1c Percent) 5.3 4.0-7.0 [facility] McKinneyHemoglobin A1c Utnidzg7018-38-91 07:48:00 * Test Item Value Reference Range Interpretation Comments Hemoglobin A1c Percent (test code = Hemoglobin A1c Percent) 5.3 4.0-7.0 [facility] McKinneyHemoglobin A1c Jnruxyz2896-84-36 07:48:00 * Test Item Value Reference Range Interpretation Comments Hemoglobin A1c Percent (test code = Hemoglobin A1c Percent) 5.3 4.0-7.0 [facility]neyHemoglobin A1c Govnodq3651-65-26 07:48:00 * Test Item Value Reference Range Interpretation Comments Hemoglobin A1c Percent (test code = Hemoglobin A1c Percent) 5.3 4.0-7.0 [facility]neyHemoglobin A1c Jwhgezy6182-62-36 07:48:00 * Test Item Value Reference Range Interpretation Comments Hemoglobin A1c Percent (test code = Hemoglobin A1c Percent) 5.3 4.0-7.0 [facility]neyTriglycerides Ffjta8912-01-19 07:26:00* Test Item Value Reference Range Interpretation Comments Triglycerides Level (test code = 2571-8) 122 0-149 [facility]neyCholesterol Dtldi5116-50-20 07:26:00* Test Item Value Reference Range Interpretation Comments Cholesterol Level (test code = 2093-3) 189 0-199 Less than 200 mg/dL Low Vanj861 - 239 mg/dL Borderline Hnnr757 m g/dl and greater High Risk [facility] McKinneyLDL Oxguycktqno7854-58-02 07:26:00* Test Item Value Reference Range Interpretation Comments LDL Cholesterol (test code = 2089-1) 108 60-130 [facility] McKinneyHDL Bbnmwdekeqq8673-47-37 07:26:00* Test Item Value Reference Range Interpretation Comments HDL Cholesterol (test code = 2085-9) 57 40-60 [facility]neyCholesterol/HDL Eewpw0941-03-97 07:26:00 * Test Item Value Reference Range Interpretation Comments Cholesterol/HDL Ratio (test code = 9830-1) 3.3 3.0-3.6 [facility]neyTriglycerides Nfgvd5797-34-90 07:26:00* Test Item Value Reference Range Interpretation Comments Triglycerides Level (test code = 2571-8) 122 0-149 [facility]neyCholesterol Pgugi3305-26-56 07:26:00* Test Item Value Reference Range Interpretation Comments Cholesterol Level (test code = 2093-3) 189 0-199 Less than 200 mg/dL Low Lzzi575 - 239 mg/dL Borderline Kgda295 m g/dl and greater High Risk [facility] McKinneyLDL Umtziqoechy0208-52-29 07:26:00* Test Item Value Reference Range Interpretation Comments LDL Cholesterol (test code = 2089-1) 108 60-130 [facility] Omwmuayinda4682-92-97 07:26:00* Test Item Value Reference Range Interpretation Comments HDL Cholesterol (test code = 2085-9) 57 40-60 [facility]neyCh[facility]/HDL Plzzw8691-00-59 07:26:00 * Test Item Value Reference Range Interpretation Comments Cholesterol/HDL Ratio (test code = 9830-1) 3.3 3.0-3.6 [facility]neyTriglycerides Bfccc1162-11-88 07:26:00* Test Item Value Reference Range Interpretation Comments Triglycerides Level (test code = 2571-8) 122 0-149 [facility]neyCholesterol Vnuwd9545-39-11 07:26:00* Test Item Value Reference Range Interpretation Comments Cholesterol Level (test code = 2093-3) 189 0-199 Less than 200 mg/dL Low Vlnh360 - 239 mg/dL Borderline Ozjm690 m g/dl and greater High Risk [facility]neyLDL Kdzjownlrwf0958-59-71 07:26:00* Test Item Value Reference Range Interpretation Comments LDL Cholesterol (test code = 2089-1) 108 60-130 [facility] Lmbnrkdjixc7282-48-98 07:26:00* Test Item Value Reference Range Interpretation Comments HDL Cholesterol (test code = 2085-9) 57 40-60 [facility]neyCh[facility]/HDL Zwdpo3153-18-68 07:26:00 * Test Item Value Reference Range Interpretation Comments Cholesterol/HDL Ratio (test code = 9830-1) 3.3 3.0-3.6 [facility]neyTriglycerides Fvvqv3909-84-01 07:26:00* Test Item Value Reference Range Interpretation Comments Triglycerides Level (test code = 2571-8) 122 0-149 [facility]neyCholesterol Hfmhm9442-86-53 07:26:00* Test Item Value Reference Range Interpretation Comments Cholesterol Level (test code = 2093-3) 189 0-199 Less than 200 mg/dL Low Pvmh475 - 239 mg/dL Borderline Vaco026 m g/dl and greater High Risk [facility]neyLDL Rdibkommpcf9964-47-41 07:26:00* Test Item Value Reference Range Interpretation Comments LDL Cholesterol (test code = 2089-1) 108 60-130 [facility] McKinneyHDL Kyzqtlacnku0336-31-03 07:26:00* Test Item Value Reference Range Interpretation Comments HDL Cholesterol (test code = 2085-9) 57 40-60 [facility]neyCholesterol/HDL Ornjg1945-30-29 07:26:00 * Test Item Value Reference Range Interpretation Comments Cholesterol/HDL Ratio (test code = 9830-1) 3.3 3.0-3.6 [facility]neyTriglycerides Vcvxn8161-49-82 07:26:00* Test Item Value Reference Range Interpretation Comments Triglycerides Level (test code = 2571-8) 122 0-149 [facility]neyCholesterol Alpve7328-52-20 07:26:00* Test Item Value Reference Range Interpretation Comments Cholesterol Level (test code = 2093-3) 189 0-199 Less than 200 mg/dL Low Ajxx048 - 239 mg/dL Borderline Asks219 m g/dl and greater High Risk [facility]neyLDL Bmcvrytwzsd4746-42-61 07:26:00* Test Item Value Reference Range Interpretation Comments LDL Cholesterol (test code = 2089-1) 108 60-130 [facility] McKinneyHDL Fnsnsqvpgsx7529-63-07 07:26:00* Test Item Value Reference Range Interpretation Comments HDL Cholesterol (test code = 2085-9) 57 40-60 [facility]neyCholesterol/HDL Cbzxp8877-42-52 07:26:00 * Test Item Value Reference Range Interpretation Comments Cholesterol/HDL Ratio (test code = 9830-1) 3.3 3.0-3.6 [facility]neyTriglycerides Zseiu5168-57-29 07:26:00* Test Item Value Reference Range Interpretation Comments Triglycerides Level (test code = 2571-8) 122 0-149 [facility]neyCholesterol Npqpa7468-49-81 07:26:00* Test Item Value Reference Range Interpretation Comments Cholesterol Level (test code = 2093-3) 189 0-199 Less than 200 mg/dL Low Hufu638 - 239 mg/dL Borderline Szrh379 m g/dl and greater High Risk [facility]neyLDL Mvpfdfwutwq4823-40-09 07:26:00* Test Item Value Reference Range Interpretation Comments LDL Cholesterol (test code = 2089-1) 108 60-130 [facility]neyHDL Fylrvguqauj6570-11-64 07:26:00* Test Item Value Reference Range Interpretation Comments HDL Cholesterol (test code = 2085-9) 57 40-60 [facility]neyCholesterol/HDL Goife6320-26-65 07:26:00 * Test Item Value Reference Range Interpretation Comments Cholesterol/HDL Ratio (test code = 9830-1) 3.3 3.0-3.6 [facility] McKinneyMagnesium Slypl6969-07-56 23:30:00* Test Item Value Reference Range Interpretation Comments Magnesium Level (test code = 51128-0) 2.1 1.3-2.1 [facility] McKinneyTotal Jkelnncgk1893-54-90 23:30:00* Test Item Value Reference Range Interpretation Comments Total Bilirubin (test code = 1975-2) 0.3 0.2-1.2 [facility] McKinneyAspartate Amino Transf (AST/SGOT) 2018-11-09 23:30:00* Test Item Value Reference Range Interpretation Comments Aspartate Amino Transf (AST/SGOT) (test code = Aspartate Amino Transf (AST/SGOT)) 79 5-34 H [facility] McKinneyAlanine Aminotransferase (ALT/SGPT) 2018-11-09 23:30:00* Test Item Value Reference Range Interpretation Comments Alanine Aminotransferase (ALT/SGPT) (test code = 1742-6) 111 0-55 H [facility] McKinneyTotal Dzlhqta3994-94-39 23:30:00* Test Item Value Reference Range Interpretation Comments Total Protein (test code = 2885-2) 6.6 6.5-8.1 [facility] McKinneyAlbumin2019-06-11 23:30:00* Test Item Value Reference Range Interpretation Comments Albumin (test code = 1751-7) 3.5 3.5-5.0 [facility] McKinneyGlobulin2019-06-11 23:30:00* Test Item Value Reference Range Interpretation Comments Globulin (test code = 14806-7) 3.1 2.3-3.5 [facility] McKinneyAlbumin/Globulin Bdlxn1549-34-82 23:30:00 * Test Item Value Reference Range Interpretation Comments Albumin/Globulin Ratio (test code = 1759-0) 1.1 0.8-2.0 [facility] McKinneyAlkaline Avfmibeetcp4588-43-89 23:30:00* Test Item Value Reference Range Interpretation Comments Alkaline Phosphatase (test code = 6768-6) 104 40-150 [facility] McKinneyAmylase Zkoul4927-39-35 23:30:00* Test Item Value Reference Range Interpretation Comments Amylase Level (test code = 1798-8) 57 25-125 [facility] McKinneyLipase2019-06-11 23:30:00* Test Item Value Reference Range Interpretation Comments Lipase (test code = 3040-3) 26 8-78 [facility] McKinneyMagnesium Luliz5901-59-90 23:30:00* Test Item Value Reference Range Interpretation Comments Magnesium Level (test code = 09469-7) 2.1 1.3-2.1 [facility] McKinneyAmylase Mpjvr3794-47-72 23:30:00* Test Item Value Reference Range Interpretation Comments Amylase Level (test code = 1798-8) 57 25-125 [facility] Lldma9269-50-52 23:30:00* Test Item Value Reference Range Interpretation Comments Magnesium Level (test code = 48228-0) 2.1 1.3-2.1 [facility]neyAmylase Zydcb5700-70-37 23:30:00* Test Item Value Reference Range Interpretation Comments Amylase Level (test code = 1798-8) 57 25-125 [facility] McKinneyMagnesium Khqxb8017-66-85 23:30:00* Test Item Value Reference Range Interpretation Comments Magnesium Level (test code = 78809-6) 2.1 1.3-2.1 [facility] McKinneyAmylase Thitp6866-42-96 23:30:00* Test Item Value Reference Range Interpretation Comments Amylase Level (test code = 1798-8) 57 25-125 [facility] McKinneyMagnesium Zuwca7726-02-85 23:30:00* Test Item Value Reference Range Interpretation Comments Magnesium Level (test code = 59465-4) 2.1 1.3-2.1 [facility] McKinneyAmylase Yedta3659-72-10 23:30:00* Test Item Value Reference Range Interpretation Comments Amylase Level (test code = 1798-8) 57 25-125 [facility] Ahiwk4419-01-21 23:30:00* Test Item Value Reference Range Interpretation Comments Magnesium Level (test code = 53389-0) 2.1 1.3-2.1 [facility]neyAmylase Mxgoz5804-05-92 23:30:00* Test Item Value Reference Range Interpretation Comments Amylase Level (test code = 1798-8) 57 25-125 [facility] McKinneyUrine YCS9503-18-32 23:03:00* Test Item Value Reference Range Interpretation Comments Urine WBC (test code = 5821-4) 21-50 0-5 H [facility] McKinneyUrine DXD3496-89-99 23:03:00* Test Item Value Reference Range Interpretation Comments Urine RBC (test code = 76232-4) >50 0-5 H [facility] McKinneyUrine Hrqngaav4625-90-26 23:03:00* Test Item Value Reference Range Interpretation Comments Urine Bacteria (test code = 84503-8) FEW NONE [facility] McKinneyUrine Epithelial Bpgwq3990-27-99 23:03:00 * Test Item Value Reference Range Interpretation Comments Urine Epithelial Cells (test code = 14809-1) FEW NONE [facility] McKinneyProthrombin Jykq0863-79-52 22:55:00* Test Item Value Reference Range Interpretation Comments Prothrombin Time (test code = 5902-2) 12.7 11.9-14.5 [facility] McKinneyProthromb Time International Ratio 2018-11-09 22:55:00* Test Item Value Reference Range Interpretation Comments Prothromb Time International Ratio (test code = 6301-6) 0.91 Oral Anticoagulant Therapy INR Values:1. Low Intensity Therapy 1.5 - 2.02 . Moderate Intensity Therapy 2.0 - 3.03. High Intensity Therapy(1) 2.5 - 3. 54. High Intensity Therapy(2) 3.0 - 4.05. Panic Value INR > 5.0 [facility] McKinneyActivated Partial Thromboplast Time 2018-11-09 22:55:00* Test Item Value Reference Range Interpretation Comments Activated Partial Thromboplast Time (test code = 30549-4) 29.2 23.8-35.5 [facility] McKinneyUrine Ljlfd2418-73-07 22:55:00* Test Item Value Reference Range Interpretation Comments Urine Color (test code = 5778-6) BROWN YELLOW H [facility] McKinneyUrine Lgdolai9279-89-27 22:55:00* Test Item Value Reference Range Interpretation Comments Urine Clarity (test code = 19060-3) CLOUDY CLEAR H [facility] McKinneyUrine Specific Dftpold4653-98-85 22:55:00 * Test Item Value Reference Range Interpretation Comments Urine Specific Central (test code = 5811-5) 1.020 1.010-1.02 5 [facility] McKinneyUrine vR5079-63-31 22:55:00* Test Item Value Reference Range Interpretation Comments Urine pH (test code = 78140-3) 6.5 5-7 [facility] McKinneyUrine Leukocyte Pazpqqnw7243-48-73 22:55:00* Test Item Value Reference Range Interpretation Comments Urine Leukocyte Esterase (test code = 33931-1) TRACE NEGATIV E H [facility] McKinneyUrine Zkyyglt0866-80-59 22:55:00* Test Item Value Reference Range Interpretation Comments Urine Nitrite (test code = 24027-6) NEGATIVE NEGATIVE [facility] McKinneyUrine Tlqfwgz9797-03-19 22:55:00* Test Item Value Reference Range Interpretation Comments Urine Protein (test code = 49171-2) 2+ NEGATIVE H [facility] McKinneyUrine Glucose (UA)2018-11-09 22:55:00* Test Item Value Reference Range Interpretation Comments Urine Glucose (UA) (test code = 20370-1) NEGATIVE NEGATIVE [facility] McKinneyUrine Qjmbazz9407-13-33 22:55:00* Test Item Value Reference Range Interpretation Comments Urine Ketones (test code = 61568-7) NEGATIVE NEGATIVE [facility] Denblpdwrymm1662-57-78 22:55:00* Test Item Value Reference Range Interpretation Comments Urine Urobilinogen (test code = 15895-0) 0.2 0.2-1 [facility] McKinneyUrine Aplknilzd2434-41-83 22:55:00* Test Item Value Reference Range Interpretation Comments Urine Bilirubin (test code = 1977-8) SMALL NEGATIVE [facility] McKinneyUrine Eaoxh6975-60-64 22:55:00* Test Item Value Reference Range Interpretation Comments Urine Blood (test code = 88456-5) 3+ NEGATIVE [facility] McKinneyProthrombin Pebj4652-24-84 22:55:00* Test Item Value Reference Range Interpretation Comments Prothrombin Time (test code = 5902-2) 12.7 11.9-14.5 [facility] McKinneyProthromb Time International Ratio 2018-11-09 22:55:00* Test Item Value Reference Range Interpretation Comments Prothromb Time International Ratio (test code = 6301-6) 0.91 Oral Anticoagulant Therapy INR Values:1. Low Intensity Therapy 1.5 - 2.02 . Moderate Intensity Therapy 2.0 - 3.03. High Intensity Therapy(1) 2.5 - 3. 54. High Intensity Therapy(2) 3.0 - 4.05. Panic Value INR > 5.0 [facility] McKinneyActivated Partial Thromboplast Time 2018-11-09 22:55:00* Test Item Value Reference Range Interpretation Comments Activated Partial Thromboplast Time (test code = 37331-8) 29.2 23.8-35.5 [facility] McKinneyProthrombin Itdj7966-76-83 22:55:00* Test Item Value Reference Range Interpretation Comments Prothrombin Time (test code = 5902-2) 12.7 11.9-14.5 [facility] McKinneyProthromb Time International Ratio 2018-11-09 22:55:00* Test Item Value Reference Range Interpretation Comments Prothromb Time International Ratio (test code = 6301-6) 0.91 Oral Anticoagulant Therapy INR Values:1. Low Intensity Therapy 1.5 - 2.02 . Moderate Intensity Therapy 2.0 - 3.03. High Intensity Therapy(1) 2.5 - 3. 54. High Intensity Therapy(2) 3.0 - 4.05. Panic Value INR > 5.0 [facility] McKinneyActivated Partial Thromboplast Time 2018-11-09 22:55:00* Test Item Value Reference Range Interpretation Comments Activated Partial Thromboplast Time (test code = 90569-8) 29.2 23.8-35.5 [facility] McKinneyProthrombin Owdk1642-82-65 22:55:00* Test Item Value Reference Range Interpretation Comments Prothrombin Time (test code = 5902-2) 12.7 11.9-14.5 [facility] McKinneyProthromb Time International Ratio 2018-11-09 22:55:00* Test Item Value Reference Range Interpretation Comments Prothromb Time International Ratio (test code = 6301-6) 0.91 Oral Anticoagulant Therapy INR Values:1. Low Intensity Therapy 1.5 - 2.02 . Moderate Intensity Therapy 2.0 - 3.03. High Intensity Therapy(1) 2.5 - 3. 54. High Intensity Therapy(2) 3.0 - 4.05. Panic Value INR > 5.0 [facility] McKinneyActivated Partial Thromboplast Time 2018-11-09 22:55:00* Test Item Value Reference Range Interpretation Comments Activated Partial Thromboplast Time (test code = 84623-1) 29.2 23.8-35.5 [facility] McKinneyProthrombin Vxkv5847-64-41 22:55:00* Test Item Value Reference Range Interpretation Comments Prothrombin Time (test code = 5902-2) 12.7 11.9-14.5 [facility] McKinneyProthromb Time International Ratio 2018-11-09 22:55:00* Test Item Value Reference Range Interpretation Comments Prothromb Time International Ratio (test code = 6301-6) 0.91 Oral Anticoagulant Therapy INR Values:1. Low Intensity Therapy 1.5 - 2.02 . Moderate Intensity Therapy 2.0 - 3.03. High Intensity Therapy(1) 2.5 - 3. 54. High Intensity Therapy(2) 3.0 - 4.05. Panic Value INR > 5.0 [facility] McKinneyActivated Partial Thromboplast Time 2018-11-09 22:55:00* Test Item Value Reference Range Interpretation Comments Activated Partial Thromboplast Time (test code = 39543-0) 29.2 23.8-35.5 [facility] McKinneyProthrombin Rbjl6085-90-31 22:55:00* Test Item Value Reference Range Interpretation Comments Prothrombin Time (test code = 5902-2) 12.7 11.9-14.5 [facility] McKinneyProthromb Time International Ratio 2018-11-09 22:55:00* Test Item Value Reference Range Interpretation Comments Prothromb Time International Ratio (test code = 6301-6) 0.91 Oral Anticoagulant Therapy INR Values:1. Low Intensity Therapy 1.5 - 2.02 . Moderate Intensity Therapy 2.0 - 3.03. High Intensity Therapy(1) 2.5 - 3. 54. High Intensity Therapy(2) 3.0 - 4.05. Panic Value INR > 5.0 [facility]neyActivated Partial Thromboplast Time 2018-11-09 22:55:00* Test Item Value Reference Range Interpretation Comments Activated Partial Thromboplast Time (test code = 59573-2) 29.2 23.8-35.5 [facility]- US TRANSVAGINAL NON UT3617-59-02 11:04:00 Name: ANGELA ESPINOSA [facility] : 1975 Age/S: 42 / F [address] [facility] Unit #: [id number] Loc: [place] [address] Phys: Hesham Acuña MD Acct: [id number] Dis Date: Status: REG ER PHONE #: [phone] Exam Date: 11/07/2018 1036 FAX #: [phone] Reason: RLQ PAIN EXAMS: CPT CODE: [id number] [place] [address] HISTORY: Right adnexal pain TECHNIQUE: Static grayscale [...] Orig Print D/T: S: 11/07/2018 (1110) Probe: [id number] PAGE 1 Signed Report - DUP AB/PEL/SC [id number] 11:04:00 Name: ANGELA ESPINOSA [facility] : 1975 Age/S: 42 / F [address] Unit #: [id number] Loc: [place] [address] Phys: Hesham Acuña MD Acct: [id number] Dis Date: Status: REG ER PHONE #: [phone] Exam Date: 11/07/2018 1036 FAX #: [phone] Reason: PELVIC PAIN EXAMS: CPT CODE: [id number] DUP AB/PEL/SC COMP 29281 HISTORY: Right adnexal pain TECHNIQUE: Static grayscale [...] PAGE 1 Signed Report - US PELVIS [id number] 11:04:00 Name: ANGELA ESPINOSA [facility] : 1975 Age/S: 42 / F [address] Unit #: [id number] Loc: [place] [address] Phys: Hesham Acuña MD Acct: [id number] Dis Date: Status: REG ER PHONE #: [phone] Exam Date: 11/07/2018 1036 FAX #: [phone] Reason: R adnexal pain EXAMS: CPT CODE: [id number] US PELVIS COMPLETE 70969 HISTORY: Right adnexal pain TECHNIQUE: Static grayscale [...] MD; Vicente Bui MD Technologist: ANDREW LUCAS Trniab Date/Time: 11/07/2018 (110 4) [email or web address] Orig Print D/T: S: 11/07/2018 (1110) Pro be: PAGE 1 Signed Report URINALYSIS [id number] 09:22:00* Test Item Value Reference Range Interpretation [...] NONE A Urine Source? Clean CatchBASIC METABOLIC HYEHO6027-97-10 09:22:00* Test Item Value Reference Range Interpretation [...] CA) 8.6 mg/dL 8.5-10.1 N HEPATIC FUNCTION [id number] 09:22:00* Test Item Value Reference Range Interpretation [...] reference range due to change in reagent. [id number] 09:22:00* Test Item Value Reference Range Interpretation Comments LIPASE (test code = LIP) 125 U/L 73.0-393.0 N HCG SERUM [id number] 09:22:00* Test Item Value Reference Range Interpretation Comments HCG SERUM QUAL (test code = HCGQL) NEGATIVE NEGATIVE This HCGQL test is NOT applicable for MALE patients.Check with nurse about probable order error.If Tumor Marker Test needed, nurse should order test "HCGTU"(Test #550.87239) BASIC METABOLIC [id number] 09:13:00* Test Item Value Reference Range Interpretation [...] code = CA) mg/dL 8.5-10.1 HEPATIC FUNCTION [id number] 09:13:00* Test Item Value Reference Range Interpretation [...] TOTAL (test code = ALKP) IUnit/L 45-117 [id number] 09:13:00* Test Item Value Reference Range Interpretation Comments LIPASE (test code = LIP) U/L 73.0-393.0 HCG SERUM [id number] 09:13:00* Test Item Value Reference Range Interpretation Comments HCG SERUM QUAL (test code = HCGQL) NEGATIVE NEGATIVE This HCGQL test is NOT applicable for MALE patients.Check with nurse about probable order error.If Tumor Marker Test needed, nurse should order test "HCGTU"(Test #550.32757) BASIC METABOLIC [id number] 09:13:00* Test Item Value Reference Range Interpretation [...] code = CA) mg/dL 8.5-10.1 HEPATIC FUNCTION [id number] 09:13:00* Test Item Value Reference Range Interpretation [...] TOTAL (test code = ALKP) IUnit/L 45-117 [id number] 09:13:00* Test Item Value Reference Range Interpretation Comments LIPASE (test code = LIP) U/L 73.0-393.0 HCG SERUM [id number] 09:13:00* Test Item Value Reference Range Interpretation Comments HCG SERUM QUAL (test code = HCGQL) NEGATIVE NEGATIVE This HCGQL test is NOT applicable for MALE patients.Check with nurse about probable order error.If Tumor Marker Test needed, nurse should order test "HCGTU"(Test #550.90038) CBC W/O [id number] 09:05:00* Test Item Value Reference Range Interpretation [...] MPV) 9.3 fL 6.7-11.0 N CBC W/O [id number] 09:03:00* Test Item Value Reference Range Interpretation [...] fL 6.7-11.0 - CT ABD PELVIS W/O [id number] 08:56:00 Name: ANGELA ESPINOSA [facility] : 1975 Age/S: 42 / F [address] [facility] Unit #: [id number] Loc: [place] [address] Phys: Hesham Acuña MD Acct: [id number] Dis Date: Status: REG ER PHONE #: [phone] Exam Date: 11/07/2018 0845 FAX #: [phone] Reason: RLQ pain EXAMS: CPT CODE: [id number] CT ABD PELVIS W/O CONT 56215 HISTORY: RLQ pain TECHNIQUE: 5mm axial CT [...] Signed Report (CONTINUED) Na me: ANGELA ESPINOSA [facility] : Age/S: 42 / F [address] [facility] Unit #: [id number] Loc: [place] [address] Phys: Cedric Acuña MD Acct: [id number] Dis Da te: Status: REG ER PHONE #: Exam Date: 11/07/2018 0845 FAX #: [phone] Reason: RLQ pain EXAMS: CPT CODE: [id number] CT ABD PELVIS W/O CONT 63465 <Continued> CC: Hesham Acuña MD; Vicente Bui MD Technologist:Gloria Michael RT(R),CT CTDI: DLP: Trnscb Date/Time: 11/07/2018 (0856) [email or web address] Orig Print D/T: S: 11/07/2018 (0859) PAGE 2 Signed Report BASIC METABOLIC [id number] 12:15:00* Test Item Value Reference Range Interpretation [...] CA) 8.2 mg/dL 8.5-10.1 L BASIC METABOLIC [id number] 12:09:00* Test Item Value Reference Range Interpretation [...] code = CA) mg/dL 8.5-10.1 CBC W/AUTO [id number] 11:38:00* Test Item Value Reference Range Interpretation [...] (test code = MDIFF) NO CBC W/AUTO [id number] 11:32:00* Test Item Value Reference Range Interpretation [...] code = BA#) K/mm3 0.0-0.2 BASIC METABOLIC [id number] 09:30:00* Test Item Value Reference Range Interpretation [...] CA) 8.9 mg/dL 8.5-10.1 N HCG SERUM [id number] 09:30:00* Test Item Value Reference Range Interpretation Comments HCG SERUM QUAL (test code = HCGQL) NEGATIVE NEGATIVE This HCGQL test is NOT applicable for MALE patients.Check with nurse about probable order error.If Tumor Marker Test needed, nurse should order test "HCGTU"(Test #550.70032) [id number]-[id number] 09:30:00* Test Item Value Reference Range Interpretation Comments TROPONIN-I (test code = TROPI) <0.015 ng/mL 0-0.045 N URINALYSIS GJZJSFMU1487-25-83 09:27:00* Test Item Value Reference Range Interpretation [...] NEGATIVE UA NITRITE DIPSTICK (test code = AMNDI) POSITIVE NEGATIVE A UA LEUKOCYTE ESTERASE W REFLEX (test code = LEUUR) NEGATIVE Rah/uL NEGATIVE UA WBC (test code = WBCU) per HPF 0-5 UA RBC (test code = RBCU) per HPF 0-5 UA EPITHELIAL CELLS (test code = EPIU) per HPF Few UA BACTERIA (test code = BACU) per HPF NONE Urine Source? Clean CatchURINALYSIS [id number] 09:27:00* Test Item Value Reference Range Interpretation [...] NONE A Urine Source? Clean CatchBASIC METABOLIC [id number] 09:24:00* Test Item Value Reference Range Interpretation [...] code = CA) mg/dL 8.5-10.1 HCG SERUM [id number] 09:24:00* Test Item Value Reference Range Interpretation Comments HCG SERUM QUAL (test code = HCGQL) NEGATIVE NEGATIVE This HCGQL test is NOT applicable for MALE patients.Check with nurse about probable order error.If Tumor Marker Test needed, nurse should order test "HCGTU"(Test #550.28849) [id number]-H5853-96-08 09:24:00* Test Item Value Reference Range Interpretation Comments TROPONIN-I (test code = TROPI) ng/mL 0-0.045 BASIC METABOLIC [id number] 09:22:00* Test Item Value Reference Range Interpretation [...] code = CA) mg/dL 8.5-10.1 HCG SERUM [id number] 09:22:00* Test Item Value Reference Range Interpretation Comments HCG SERUM QUAL (test code = HCGQL) NEGATIVE OQUXRIAV-D5493-29-08 09:22:00* Test Item Value Reference Range Interpretation Comments TROPONIN-I (test code = TROPI) ng/mL 0-0.045 CBC W/O [id number] 09:02:00* Test Item Value Reference Range Interpretation [...] MPV) 9.5 fL 6.7-11.0 N CBC W/O [id number] 08:59:00* Test Item Value Reference Range Interpretation [...] (test code = MPV) fL 6.7-11.0 Urine Dotqcnw8603-02-93 08:08:00* Test Item Value Reference Range Interpretation Comments Urine Culture (test code = 630-4) Organism: ESCHERICHIA COLI [facility] Dywfalo0909-62-65 08:08:00* Test Item Value Reference Range Interpretation Comments Urine Culture (test code = 630-4) Organism: ESCHERICHIA COLI [facility] Rwmnoxl1449-30-92 08:08:00* Test Item Value Reference Range Interpretation Comments Urine Culture (test code = 630-4) Organism: ESCHERICHIA COLI [facility] Fiyvwkm4190-98-85 08:08:00* Test Item Value Reference Range Interpretation Comments Urine Culture (test code = 630-4) No Result Data Provided [facility] Znrznma7395-61-13 08:08:00* Test Item Value Reference Range Interpretation Comments Urine Culture (test code = 630-4) No Result Data Provided [facility] PBP9634-41-60 09:55:00* Test Item Value Reference Range Interpretation Comments Urine WBC (test code = 5821-4) 6-10 0-5 H [facility] [id number] 09:55:00* Test Item Value Reference Range Interpretation Comments Urine RBC (test code = 38720-1) NONE 0-5 [facility] Whhtpqkw6290-91-81 09:55:00* Test Item Value Reference Range Interpretation Comments Urine Bacteria (test code = 74910-3) FEW NONE [facility] Epithelial Mpcqe9229-44-01 09:55:00 * Test Item Value Reference Range Interpretation Comments Urine Epithelial Cells (test code = 66657-3) FEW NONE [facility]neyCT ABDOMEN/PELVIS [id number] 09:43:00 [place] [address] Patient Name: ANGELA ESPINOSA MR #: [id number] : 1975 Age/Sex: 42/F Req #: [id number] Adm Physician: Ordered by: EROS SIDHU MD Report #: [id number] Location: ER Room/Bed: Procedure: [id number] CT/CT ABDOMEN/PELVIS WO Exam Date: 10/01/18 Exam [...] 10/01/18949 COPY TO: EROS SIDHU MD Urine Bwdye7999-14-63 09:03:00* Test Item Value Reference Range Interpretation Comments Urine Color (test code = 5778-6) YELLOW YELLOW [facility] Dsgqezz2632-84-32 09:03:00* Test Item Value Reference Range Interpretation Comments Urine Clarity (test code = 73550-8) SL CLOUDY CLEAR [facility]ney[facility] Specific Pxsubrp4520-57-16 09:03:00 * Test Item Value Reference Range Interpretation Comments Urine Specific Central (test code = 5811-5) 1.015 1.010-1.02 5 [facility]ney[facility] [id number] 09:03:00* Test Item Value Reference Range Interpretation Comments Urine pH (test code = 72973-7) 6 5-7 [facility] Leukocyte Xjxzgwiw0657-27-39 09:03:00* Test Item Value Reference Range Interpretation Comments Urine Leukocyte Esterase (test code = 5799-2) TRACE NEGATIVE H [facility] Znohomt6436-97-11 09:03:00* Test Item Value Reference Range Interpretation Comments Urine Nitrite (test code = 51047-5) NEGATIVE NEGATIVE [facility] Udulzqp3248-53-98 09:03:00* Test Item Value Reference Range Interpretation Comments Urine Protein (test code = 5804-0) NEGATIVE NEGATIVE [facility]ney[facility] Glucose (UA)2018-10-01 09:03:00* Test Item Value Reference Range Interpretation Comments Urine Glucose (UA) (test code = 2349-9) NEGATIVE NEGATIVE [facility] Hlcejzf3046-68-63 09:03:00* Test Item Value Reference Range Interpretation Comments Urine Ketones (test code = 74532-6) NEGATIVE NEGATIVE [facility] Lwhxjxlhbvqi6663-42-19 09:03:00* Test Item Value Reference Range Interpretation Comments Urine Urobilinogen (test code = 59285-2) 0.2 0.2-1 [facility] Toiaqexxe5639-82-89 09:03:00* Test Item Value Reference Range Interpretation Comments Urine Bilirubin (test code = 1978-6) NEGATIVE NEGATIVE [facility] Trbar7554-45-11 09:03:00* Test Item Value Reference Range Interpretation Comments Urine Blood (test code = 68357-7) NEGATIVE NEGATIVE [facility] McKinneyCOMPREHENSIVE METABOLIC SDVNU4611-66-31 17:29:00* Test Item Value Reference Range Interpretation [...] code = ALKP) 81 units/L 46-116 N APQZKNU6097-24-59 17:29:00* Test Item Value Reference Range Interpretation Comments AMYLASE (test code = JANIE) 70 units/L 30-110 N KLDFIN3610-86-01 17:29:00* Test Item Value Reference Range Interpretation Comments LIPASE (test code = LIP) 168 units/L 73-393 N DRUGS OF ABUSE EHREOM4214-80-23 17:29:00* Test Item Value Reference Range Interpretation [...] CALLED TO CHELSYREAD BACK & CONFIRMED? YES.[facility] 9888. DETECTION CUT OFF: 100 ng/mL UR PHENCYCLIDINE (PCP) (test code = PHENCU) NEGATIVE NEGATIVE DETECTION CUT OFF: 25 ng/mL UA RFLX MICR CULT IF [id number] 17:27:00* Test Item Value Reference Range Interpretation [...] = MUCU) 1+ NONE SEEN CBC W/AUTO [id number] 17:25:00* Test Item Value Reference Range Interpretation [...] = PLTMR) NORMAL YOANA L UR HCG [id number] 16:48:00* Test Item Value Reference Range Interpretation Comments UR HCG QUAL (test code = HCGQLU) NEGATIVE 1. Very dilute urine specimens, as indicated by a lowspecific gravity, may not contain member services representative levels ofhCG. 2. False negative results may occur when the levels of hCGare below the sensitivity level of the test. If is still suspected, a first morningurine specimen should be collected 48 hours later andtested. CPK-MB AEMXQIE4871-20-41 14:27:00* Test Item Value Reference Range Interpretation Comments CKMB (test code = CKMBT) 0.6 ng/mL 0-3.6 N WLJZTOLF-M7961-62-30 14:27:00* Test Item Value Reference Range Interpretation Comments TROPONIN-I (test code = TROPI) <0.017 ng/mL <0.056 N CPK-MB QKCVJJS3540-92-70 14:03:00* Test Item Value Reference Range Interpretation Comments CKMB (test code = CKMBT) 0.6 ng/mL 0-3.6 N RELATIVE % INDEX (test code = REL%) 0.0-5.0 GTNENGVI-H1907-81-30 14:03:00* Test Item Value Reference Range Interpretation Comments TROPONIN-I (test code = TROPI) <0.017 ng/mL <0.056 N - XR CHEST 1 [id number] 12:35:00 Patient Name: ANGELA ESPINOSA Unit No: [id number] EXAMS: CPT CODE: [id number] XR CHEST 1 V 22241 EXAMINATION: Chest x-ray 08/28/2018 at 1144 hours. [...] Villalobos MD; Vicente Quispe MD Technologist: Jarek Reed RT Trnscrbd D/ (7781) t.MARCO ANTONIO.WSC Orig Print D/T: S: 08/28/2018 (5762) [facility] NAME: ANGELA ESPINOSA Radiology Department PHYS: Suzanna Rojas MD [address] : 1975 AGE: 42 SEX: F [place], [place] [address] LOC: ALIVIA PHONE #: [phone] EXAM DATE: 08/28/2018 STATUS: REG ER FAX #: [phone] RAD NO: Page 1 Signed Report CHEMISTRY 7 [id number] 12:23:00* Test Item Value Reference Range Interpretation [...] = CA) 8.0 mg/dL 8.4-10.2 L CPK-MB MTWXHNV1573-19-63 12:23:00* Test Item Value Reference Range Interpretation Comments CKMB (test code = CKMBT) <0.5 ng/mL 0-3.6 N LYWFOLFS-[id number] 12:23:00* Test Item Value Reference Range Interpretation Comments TROPONIN-I (test code = TROPI) <0.017 ng/mL <0.056 N CHEMISTRY 7 [id number] 12:22:00* Test Item Value Reference Range Interpretation [...] = CA) 8.0 mg/dL 8.4-10.2 L CPK-MB IYULNEL6893-09-74 12:22:00* Test Item Value Reference Range Interpretation Comments CKMB (test code = CKMBT) <0.5 ng/mL 0-3.6 N RELATIVE % INDEX (test code = REL%) 0.0-5.0 LYRRANYV-[id number] 12:22:00* Test Item Value Reference Range Interpretation Comments TROPONIN-I (test code = TROPI) <0.017 ng/mL <0.056 N CBC W/AUTO [id number] 11:41:00* Test Item Value Reference Range Interpretation [...] PLTMR) NORMAL YOANA L DRUGS OF ABUSE [id number] 10:07:00* Test Item Value Reference Range Interpretation Comments UR COCAINE (test code = COCAU) NEGATIVE NEGATIVE DETECTION CUT OFF: 150 ng/mL UR CANNABINOIDS (test code = CANU) POSITIVE NEGATIVE A RESULTS CALLED TO ER.READ BACK & CONFIRMED? Y.BY F.[facility] 08/18/18 1007. DETECTION CUT OFF: 50 ng/mL UR AMPHETAMINE (test code = AMPHU) NEGATIVE NEGATIVE DETECTION CUT OFF: 500 ng/mL UR BARBITURATE QUAL (test code = BARBQLU) NEGATIVE NEGATIVE DETECTION CUT OFF: 200 ng/mL UR BENZODIAZEPINE (test code = BENZU) POSITIVE NEGATIVE A RESULTS CALLED TO ER.READ BACK & CONFIRMED? Y.BY F.LAB.[facility] 08/18/18 1007. DETECTION CUT OFF: 150 ng/mL UR OPIATES QUAL (test code = OPIAQLU) NEGATIVE NEGATIVE DETECTION CUT OFF: 100 ng/mL UR PHENCYCLIDINE (PCP) (test code = PHENCU) NEGATIVE NEGATIVE DETECTION CUT OFF: 25 ng/mL IFLLINMP-[id number] 10:05:00* Test Item Value Reference Range Interpretation Comments TROPONIN-I (test code = TROPI) <0.017 ng/mL <0.056 N INFLUENZA A B [id number] 09:22:00* Test Item Value Reference Range Interpretation Comments INFLUENZA A PCR (test code = FLUAPCR) NEGATIVE NEGATIVE INFLUENZA B PCR (test code = FLUBPCR) NEGATIVE NEGATIVE COMPREHENSIVE METABOLIC [id number] 08:56:00* Test Item Value Reference Range Interpretation [...] code = ALKP) 106 units/L 46-116 N HSBUAHO7909-25-81 08:56:00* Test Item Value Reference Range Interpretation Comments AMYLASE (test code = JANIE) 81 units/L 30-110 N [id number] 08:56:00* Test Item Value Reference Range Interpretation Comments LIPASE (test code = LIP) 188 units/L 73-393 N CBC W/AUTO RMAS1428-02-24 08:36:00* Test Item Value Reference Range Interpretation [...] YOANA L UA RFLX MICR CULT IF TDDJYWULT5481-52-91 08:26:00* Test Item Value Reference Range Interpretation [...] = MUCU) RARE NONE SEEN CBC W/AUTO [id number] 11:03:00* Test Item Value Reference Range Interpretation [...] = MDIFF) NO DIFF/SCN CRITERIA BASIC METABOLIC [id number] 10:16:00* Test Item Value Reference Range Interpretation [...] = CA) 8.5 MG/DL 8.5-10.1 N URINALYSIS CGYHLIDE1438-59-30 10:14:00* Test Item Value Reference Range Interpretation [...] = LEUU) NEGATIVE Leuk/mcL NEGATIVE CBC W/AUTO [id number] 10:07:00* Test Item Value Reference Range Interpretation [...] DIFF/SCN CRITERIA - CT ABD PELVIS W/O RJWY7720-34-06 10:04:00 Name: ANGELA ESPINOSA [facility] Suad : 1975 Age/S: 42 / F [address] [place] Unit #: [id number] Loc: [place] [address] Phys: Suzanna Villalobos MD Acct: [id number] Dis Date: Status: REG ER PHONE #: [phone] Exam Date: 08/12/2018 0902 FAX #: Reason: hx of renal stones uti EXAMS: CPT: [id number] CT ABD PELVIS W/O CONT 66012 LOCATION: T18 EXAM: CT ABDOMEN AND PELVIS [...] L Ordonez M.D. CC: Suzanna Villalobos MD; Suzanna Quispe MD Technologist:Lauro Maradiaga, RT(R)(CT); .. CTDI: DLP: Trnscb Date/Time: 08/12/2018 (1004) Sadiq.JP19 Orig Print D/T: S: 08/12/2018 (1007) CTDI: DLP: PAGE 1 Signed Report - US RETRO [id number] 09:20:00 Patient Name: ANGELA ESPINOSA Unit No: [id number] EXAMS: CPT CODE: [id number] [facility] RETRO LTD [address] CLINICAL HISTORY: Intense flank pain and hematuria. [...] Sadiq.YOS Orig Print D/T: S: 08/07/2018 (0924) [facility] NAME: ANGELA ESPINOSA Radiology Department PHYS: Freddy Gandhi [address] : 1975 AGE: 42 SEX: F [place], [place] [address] LOC: ALIVIA PHONE #: [phone] EXAM DATE: 08/07/2018 STATUS: REG ER FAX #: [phone] RAD NO: Page 1 Signed Report Patient Name: ANGELA ESPINOSA Unit No: [id number] EXAMS: CPT CODE: [id number] [facility] L[facility] [address] < Continued> The [facility] NAME: ANGELA ESPINOSA Radiology Department PHYS: Freddy Gandhi [address] : 1975 AGE: 42 SEX: F [place], [place] [address] LOC: ALIVIA PHONE #: [phone] EXAM DATE: 08/07/2018 STATUS: REG ER FAX #: [phone] RAD NO: Page 2 Signed Report COMPREHENSIVE METABOLIC [id number] 08:47:00* Test Item Value Reference Range Interpretation [...] 101 units/L 46-116 N DRUGS OF ABUSE ASGJOT9760-23-29 08:44:00* Test Item Value Reference Range Interpretation Comments UR COCAINE (test code = COCAU) NEGATIVE NEGATIVE DETECTION CUT OFF: 150 ng/mL UR CANNABINOIDS (test code = CANU) POSITIVE NEGATIVE A RESULTS CALLED TO WILMA CORRAL BACK & CONFIRMED? HARISH .LAB.KG 08/07/1841. DETECTION CUT OFF: 50 ng/mL UR AMPHETAMINE (test code = AMPHU) NEGATIVE NEGATIVE DETECTION CUT OFF: 500 ng/mL UR BARBITURATE QUAL (test code = BARBQLU) NEGATIVE NEGATIVE DETECTION CUT OFF: 200 ng/mL UR BENZODIAZEPINE (test code = BENZU) POSITIVE NEGATIVE A RESULTS CALLED TO WILMA CORRAL BACK & CONFIRMED? AdjudicaJc [employer].LAB.KG 08/07/18840. DETECTION CUT OFF: 150 ng/mL UR OPIATES QUAL (test code = OPIAQLU) POSITIVE NEGATIVE A RESULTS CALLED TO WILMA CORRAL BACK & CONFIRMED? AdjudicaTgh [place].LAB.KG 08/07/18840. DETECTION CUT OFF: 100 ng/mL UR PHENCYCLIDINE (PCP) (test code = PHENCU) NEGATIVE NEGATIVE DETECTION CUT OFF: 25 ng/mL CBC W/AUTO [id number] 08:38:00* Test Item Value Reference Range Interpretation [...] YOANA L UA RFLX MICR CULT IF KDCLMGWUV1234-40-83 08:29:00* Test Item Value Reference Range Interpretation [...] = MUCU) RARE NONE SEEN CT ABDOMEN/PELVIS [id number] 10:13:00 [place] [address] [place] [address] Patient Name: ANGELA ESPINOSA MR #: [id number] : 1975 Age/Sex: 42/F Req #: [id number] Adm Physician: Ordered by: COLLETTE MARTINEZ MD Report #: [id number] Location: ER Room/Bed: Procedure: [id number] CT/CT ABDOMEN/PELVIS WO Exam Date: 08/05/18 Héctor mora Time: 914 REPORT STATUS: Signed EXAM: CT Abdomen and [...] 1037 COPY TO: COLLETTE DUDLEY MD Sodium Konmo4384-08-87 09:43:00* Test Item Value Reference Range Interpretation Comments Sodium Level (test code = 2951-2) 135 136-145 L [facility]neyPotassium Ivpns9981-95-66 09:43:00* Test Item Value Reference Range Interpretation Comments Potassium Level (test code = 2823-3) 3.5 3.5-5.1 [facility] McKinneyChloride Ggstb3392-99-06 09:43:00* Test Item Value Reference Range Interpretation Comments Chloride Level (test code = 2075-0) 106 98-107 [facility] McKinneyCarbon Dioxide Hnksk1503-79-41 09:43:00* Test Item Value Reference Range Interpretation Comments Carbon Dioxide Level (test code = 2028-9) 22 22-29 [facility] McKinneyAnion Wqw0962-77-34 09:43:00* Test Item Value Reference Range Interpretation Comments Anion Gap (test code = 36792-8) 10.5 8-16 [facility] McKinneyBlood Urea Fftxeiqo1514-60-13 09:43:00* Test Item Value Reference Range Interpretation Comments Blood Urea Nitrogen (test code = 3094-0) 7 7-26 [facility] McKinneyCreatinine2019-03-07 09:43:00* Test Item Value Reference Range Interpretation Comments Creatinine (test code = 2160-0) 0.83 0.57-1.11 [facility] McKinneyBUN/Creatinine Tgqne6437-74-50 09:43:00* Test Item Value Reference Range Interpretation Comments BUN/Creatinine Ratio (test code = 3097-3) 8 6-25 [facility] McKinneyEstimat Glomerular Filtration Rate 2018-08-05 09:43:00* Test Item Value Reference Range Interpretation Comments Estimat Glomerular Filtration Rate (test code = 166575944) > 60 >60 Ranges were taken from the National Kidney Disease Education Program and the [facility] Kid[facility] Foundation literature.Reference ranges:60 or greater: Nerjyx01-85 ( for 3 consecutive months): Chronic kidney disease 15 or less: Kidney failureBaylor Scott & White Medical Center – McKinneyGlucose Balfr9608-70-80 09:43:00* Test Item Value Reference Range Interpretation Comments Glucose Level (test code = NAT9611) 114 74-118 [facility] McKinneyCalcium Xulhp1306-34-82 09:43:00* Test Item Value Reference Range Interpretation Comments Calcium Level (test code = 30945-5) 8.6 8.4-10.2 [facility] McKinneyTotal Jhnqxwvco3980-75-74 09:43:00* Test Item Value Reference Range Interpretation Comments Total Bilirubin (test code = 1975-2) 0.2 0.2-1.2 [facility] McKinneyAspartate Amino Transf (AST/SGOT) 2018-08-05 09:43:00* Test Item Value Reference Range Interpretation Comments Aspartate Amino Transf (AST/SGOT) (test code = Aspartate Amino Transf (AST/SGOT)) 16 5-34 [facility] McKinneyAlanine Aminotransferase (ALT/SGPT) 2018-08-05 09:43:00* Test Item Value Reference Range Interpretation Comments Alanine Aminotransferase (ALT/SGPT) (test code = 1742-6) 21 0-55 [facility] McKinneyTotal Xhefuhn0966-94-10 09:43:00* Test Item Value Reference Range Interpretation Comments Total Protein (test code = 2885-2) 6.0 6.5-8.1 L [facility] McKinneyAlbumin2019-03-07 09:43:00* Test Item Value Reference Range Interpretation Comments Albumin (test code = 1751-7) 3.2 3.5-5.0 L [facility] McKinneyGlobulin2019-03-07 09:43:00* Test Item Value Reference Range Interpretation Comments Globulin (test code = 15265-9) 2.8 2.3-3.5 [facility] McKinneyAlbumin/Globulin Kyvod6644-89-97 09:43:00 * Test Item Value Reference Range Interpretation Comments Albumin/Globulin Ratio (test code = 1759-0) 1.1 0.8-2.0 [facility] McKinneyAlkaline Zaogpgbyuru3915-29-47 09:43:00* Test Item Value Reference Range Interpretation Comments Alkaline Phosphatase (test code = 6768-6) 83 40-150 [facility] McKinneyLipase2019-03-07 09:43:00* Test Item Value Reference Range Interpretation Comments Lipase (test code = 3040-3) 29 8-78 [facility] Campusodium Vemhs9120-39-99 09:43:00* Test Item Value Reference Range Interpretation Comments Sodium Level (test code = 2951-2) 135 136-145 L [facility] McKinneyPotassium Tqttu0111-48-49 09:43:00* Test Item Value Reference Range Interpretation Comments Potassium Level (test code = 2823-3) 3.5 3.5-5.1 [facility] McKinneyChloride Onsfn7950-46-61 09:43:00* Test Item Value Reference Range Interpretation Comments Chloride Level (test code = 2075-0) 106 98-107 [facility] McKinneyCarbon Dioxide Kpvkp4294-61-72 09:43:00* Test Item Value Reference Range Interpretation Comments Carbon Dioxide Level (test code = 2028-9) 22 22-29 [facility] McKinneyAnion Bsc3707-82-57 09:43:00* Test Item Value Reference Range Interpretation Comments Anion Gap (test code = 15062-4) 10.5 8-16 [facility] McKinneyBlood Urea Tbmkcbga4940-50-20 09:43:00* Test Item Value Reference Range Interpretation Comments Blood Urea Nitrogen (test code = 3094-0) 7 7-26 [facility] McKinneyCreatinine2019-03-07 09:43:00* Test Item Value Reference Range Interpretation Comments Creatinine (test code = 2160-0) 0.83 0.57-1.11 [facility] McKinneyBUN/Creatinine Yvenh6885-09-27 09:43:00* Test Item Value Reference Range Interpretation Comments BUN/Creatinine Ratio (test code = 3097-3) 8 6-25 [facility] McKinneyEstimat Glomerular Filtration Rate 2018-08-05 09:43:00* Test Item Value Reference Range Interpretation Comments Estimat Glomerular Filtration Rate (test code = 593067440) > 60 >60 Ranges were taken from the National Kidney Disease Education Program and the [facility] Kidney Foundation literature.Reference ranges:60 or greater: Ylzisx38-82 ( for 3 consecutive months): Chronic kidney disease 15 or less: Kidney failureBaylor Scott & White Medical Center – McKinneyGlucose Rhglp6035-62-28 09:43:00* Test Item Value Reference Range Interpretation Comments Glucose Level (test code = WDP7691) 114 74-118 [facility] McKinneyCalcium Pjkbe6563-71-97 09:43:00* Test Item Value Reference Range Interpretation Comments Calcium Level (test code = 12675-3) 8.6 8.4-10.2 [facility] McKinneyTotal Xpyiouyun5179-77-40 09:43:00* Test Item Value Reference Range Interpretation Comments Total Bilirubin (test code = 1975-2) 0.2 0.2-1.2 [facility] McKinneyAspartate Amino Transf (AST/SGOT) 2018-08-05 09:43:00* Test Item Value Reference Range Interpretation Comments Aspartate Amino Transf (AST/SGOT) (test code = Aspartate Amino Transf (AST/SGOT)) 16 5-34 [facility] McKinneyAlanine Aminotransferase (ALT/SGPT) 2018-08-05 09:43:00* Test Item Value Reference Range Interpretation Comments Alanine Aminotransferase (ALT/SGPT) (test code = 1742-6) 21 0-55 [facility] McKinneyTotal Rfbaldo9303-18-21 09:43:00* Test Item Value Reference Range Interpretation Comments Total Protein (test code = 2885-2) 6.0 6.5-8.1 L [facility] McKinneyAlbumin2019-03-07 09:43:00* Test Item Value Reference Range Interpretation Comments Albumin (test code = 1751-7) 3.2 3.5-5.0 L [facility] McKinneyGlobulin2019-03-07 09:43:00* Test Item Value Reference Range Interpretation Comments Globulin (test code = 05315-8) 2.8 2.3-3.5 [facility] McKinneyAlbumin/Globulin Cpuae6211-08-46 09:43:00 * Test Item Value Reference Range Interpretation Comments Albumin/Globulin Ratio (test code = 1759-0) 1.1 0.8-2.0 [facility] McKinneyAlkaline Xlkksjyrhrl1531-76-26 09:43:00* Test Item Value Reference Range Interpretation Comments Alkaline Phosphatase (test code = 6768-6) 83 40-150 [facility] McKinneyLipase2019-03-07 09:43:00* Test Item Value Reference Range Interpretation Comments Lipase (test code = 3040-3) 29 8-78 [facility]odium Nxefu4508-38-50 09:43:00* Test Item Value Reference Range Interpretation Comments Sodium Level (test code = 2951-2) 135 136-145 L [facility] McKinneyPotassium Iwqcw9869-97-43 09:43:00* Test Item Value Reference Range Interpretation Comments Potassium Level (test code = 2823-3) 3.5 3.5-5.1 [facility] McKinneyChloride Rhlek8661-11-59 09:43:00* Test Item Value Reference Range Interpretation Comments Chloride Level (test code = 2075-0) 106 98-107 [facility] McKinneyCarbon Dioxide Xmibp0531-02-37 09:43:00* Test Item Value Reference Range Interpretation Comments Carbon Dioxide Level (test code = 2028-9) 22 22-29 [facility] McKinneyAnion Vxa5411-84-86 09:43:00* Test Item Value Reference Range Interpretation Comments Anion Gap (test code = 11363-8) 10.5 8-16 [facility] McKinneyBlood Urea Xgtxaikt8028-18-31 09:43:00* Test Item Value Reference Range Interpretation Comments Blood Urea Nitrogen (test code = 3094-0) 7 7-26 [facility] McKinneyCreatinine2019-03-07 09:43:00* Test Item Value Reference Range Interpretation Comments Creatinine (test code = 2160-0) 0.83 0.57-1.11 [facility] McKinneyBUN/Creatinine Otrib5199-70-45 09:43:00* Test Item Value Reference Range Interpretation Comments BUN/Creatinine Ratio (test code = 3097-3) 8 6- [facility] McKinneyEstimat Glomerular Filtration Rate 2018-08-05 09:43:00* Test Item Value Reference Range Interpretation Comments Estimat Glomerular Filtration Rate (test code = 323534195) > 60 >60 Ranges were taken from the National Kidney Disease Education Program and the [facility] literature.Reference ranges:60 or greater: Pdfbsu55-49 ( for 3 consecutive months): Chronic kidney disease 15 or less: Kidney failureB[facility] – McKinneyGlucose Jekgc2461-21-05 09:43:00* Test Item Value Reference Range Interpretation Comments Glucose Level (test code = CWZ6264) 114 74-118 [facility] McKinneyCalcium Szsiv6259-00-09 09:43:00* Test Item Value Reference Range Interpretation Comments Calcium Level (test code = 90589-2) 8.6 8.4-10.2 [facility] McKinneyTotal Gcrimmaqp7408-39-12 09:43:00* Test Item Value Reference Range Interpretation Comments Total Bilirubin (test code = 1975-2) 0.2 0.2-1.2 [facility] McKinneyAspartate Amino Transf (AST/SGOT) 2018-08-05 09:43:00* Test Item Value Reference Range Interpretation Comments Aspartate Amino Transf (AST/SGOT) (test code = Aspartate Amino Transf (AST/SGOT)) 16 5-34 [facility] McKinneyAlanine Aminotransferase (ALT/SGPT) 2018-08-05 09:43:00* Test Item Value Reference Range Interpretation Comments Alanine Aminotransferase (ALT/SGPT) (test code = 1742-6) 21 0-55 [facility] McKinneyTotal Dpiltqc5661-39-81 09:43:00* Test Item Value Reference Range Interpretation Comments Total Protein (test code = 2885-2) 6.0 6.5-8.1 L [facility] McKinneyAlbumin2019-03-07 09:43:00* Test Item Value Reference Range Interpretation Comments Albumin (test code = 1751-7) 3.2 3.5-5.0 L [facility] McKinneyGlobulin2019-03-07 09:43:00* Test Item Value Reference Range Interpretation Comments Globulin (test code = 06566-9) 2.8 2.3-3.5 [facility] McKinneyAlbumin/Globulin Uxruh0749-08-95 09:43:00 * Test Item Value Reference Range Interpretation Comments Albumin/Globulin Ratio (test code = 1759-0) 1.1 0.8-2.0 [facility] McKinneyAlkaline Ltyzmkapjvd0157-79-95 09:43:00* Test Item Value Reference Range Interpretation Comments Alkaline Phosphatase (test code = 6768-6) 83 40-150 [facility] McKinneyLipase2019-03-07 09:43:00* Test Item Value Reference Range Interpretation Comments Lipase (test code = 3040-3) 29 8-78 [facility] McKinneyUrine JNX1709-19-11 09:25:00* Test Item Value Reference Range Interpretation Comments Urine WBC (test code = 5821-4) 6-10 0-5 H [facility] McKinneyUrine TES2299-08-02 09:25:00* Test Item Value Reference Range Interpretation Comments Urine RBC (test code = 74231-5) NONE 0-5 [facility] McKinneyUrine Zhygddfm6504-83-41 09:25:00* Test Item Value Reference Range Interpretation Comments Urine Bacteria (test code = 18211-9) NONE NONE [facility] McKinneyUrine Epithelial Favcn3956-87-01 09:25:00 * Test Item Value Reference Range Interpretation Comments Urine Epithelial Cells (test code = 10029-8) FEW NONE [facility] McKinneyUrine FRL7081-41-31 09:25:00* Test Item Value Reference Range Interpretation Comments Urine WBC (test code = 5821-4) 6-10 0-5 H [facility] McKinneyUrine VDH1419-40-39 09:25:00* Test Item Value Reference Range Interpretation Comments Urine RBC (test code = 92424-8) NONE 0-5 [facility] McKinneyUrine Ceieesqv5441-14-69 09:25:00* Test Item Value Reference Range Interpretation Comments Urine Bacteria (test code = 27510-7) NONE NONE [facility] McKinneyUrine Epithelial Qodsd3907-68-55 09:25:00 * Test Item Value Reference Range Interpretation Comments Urine Epithelial Cells (test code = 62131-1) FEW NONE [facility] McKinneyUrine Kpsiw5651-36-35 09:14:00* Test Item Value Reference Range Interpretation Comments Urine Color (test code = 5778-6) YELLOW YELLOW [facility] McKinneyUrine Pccbmtd1119-18-10 09:14:00* Test Item Value Reference Range Interpretation Comments Urine Clarity (test code = 17138-5) CLEAR CLEAR [facility] McKinneyUrine Specific Rbpqgli0268-92-19 09:14:00 * Test Item Value Reference Range Interpretation Comments Urine Specific Central (test code = 5811-5) 1.010 1.010-1.02 5 [facility] McKinneyUrine dQ6173-03-44 09:14:00* Test Item Value Reference Range Interpretation Comments Urine pH (test code = 06282-9) 6 5-7 [facility] McKinneyUrine Leukocyte Zahwiilc3054-07-38 09:14:00* Test Item Value Reference Range Interpretation Comments Urine Leukocyte Esterase (test code = 5799-2) NEGATIVE NEGATIVE [facility] McKinneyUrine Zidcppr3886-65-70 09:14:00* Test Item Value Reference Range Interpretation Comments Urine Nitrite (test code = 99652-3) NEGATIVE NEGATIVE [facility] McKinneyUrine Hksgexz7636-86-47 09:14:00* Test Item Value Reference Range Interpretation Comments Urine Protein (test code = 5804-0) NEGATIVE NEGATIVE [facility] McKinneyUrine Glucose (UA)2018-08-05 09:14:00* Test Item Value Reference Range Interpretation Comments Urine Glucose (UA) (test code = 2349-9) NEGATIVE NEGATIVE [facility] McKinneyUrine Bjjvthz9709-40-98 09:14:00* Test Item Value Reference Range Interpretation Comments Urine Ketones (test code = 68033-4) NEGATIVE NEGATIVE [facility] McKinneyUrine Oweccysvykug7867-41-41 09:14:00* Test Item Value Reference Range Interpretation Comments Urine Urobilinogen (test code = 18220-0) 0.2 0.2-1 [facility] McKinneyUrine Oheeigqpp3453-77-74 09:14:00* Test Item Value Reference Range Interpretation Comments Urine Bilirubin (test code = 1978-6) NEGATIVE NEGATIVE [facility]neyUrine Sbaxm3517-80-46 09:14:00* Test Item Value Reference Range Interpretation Comments Urine Blood (test code = 92083-5) NEGATIVE NEGATIVE [facility]neyUrine Hwsqw4064-08-80 09:14:00* Test Item Value Reference Range Interpretation Comments Urine Color (test code = 5778-6) YELLOW YELLOW [facility] McKinneyUrine Tghhbmo0797-88-69 09:14:00* Test Item Value Reference Range Interpretation Comments Urine Clarity (test code = 59765-0) CLEAR CLEAR [facility] McKinneyUrine Specific Nloojvk3102-55-57 09:14:00 * Test Item Value Reference Range Interpretation Comments Urine Specific Central (test code = 5811-5) 1.010 1.010-1.02 5 [facility] McKinneyUrine oA8403-75-75 09:14:00* Test Item Value Reference Range Interpretation Comments Urine pH (test code = 99512-7) 6 5-7 [facility]neyUrine Leukocyte Ibfcteep5187-70-04 09:14:00* Test Item Value Reference Range Interpretation Comments Urine Leukocyte Esterase (test code = 5799-2) NEGATIVE NEGATIVE [facility]neyUrine Ykfuytq9651-38-12 09:14:00* Test Item Value Reference Range Interpretation Comments Urine Nitrite (test code = 13087-0) NEGATIVE NEGATIVE [facility]neyUrine Tbdufps9608-10-35 09:14:00* Test Item Value Reference Range Interpretation Comments Urine Protein (test code = 5804-0) NEGATIVE NEGATIVE [facility]neyUrine Glucose (UA)2018-08-05 09:14:00* Test Item Value Reference Range Interpretation Comments Urine Glucose (UA) (test code = 2349-9) NEGATIVE NEGATIVE [facility]neyUrine Nuffjma8455-71-38 09:14:00* Test Item Value Reference Range Interpretation Comments Urine Ketones (test code = 66097-8) NEGATIVE NEGATIVE [facility]neyUrine Xinfdvibjozv0649-92-16 09:14:00* Test Item Value Reference Range Interpretation Comments Urine Urobilinogen (test code = 26151-3) 0.2 0.2-1 [facility]neyUrine Xrjvoudjn2429-30-88 09:14:00* Test Item Value Reference Range Interpretation Comments Urine Bilirubin (test code = 1978-6) NEGATIVE NEGATIVE [facility]neyUrine Dyhov2992-50-63 09:14:00* Test Item Value Reference Range Interpretation Comments Urine Blood (test code = 84020-7) NEGATIVE NEGATIVE [facility] McKinneyWhite Blood Jrktr7824-13-93 09:13:00* Test Item Value Reference Range Interpretation Comments White Blood Count (test code = 6690-2) 4.72 4.8-10.8 L [facility] McKinneyRed Blood Xvdlk9784-35-63 09:13:00* Test Item Value Reference Range Interpretation Comments Red Blood Count (test code = 789-8) 4.19 3.6-5.1 [facility] McKinneyHemoglobin2019-03-07 09:13:00* Test Item Value Reference Range Interpretation Comments Hemoglobin (test code = 00664-4) 12.1 12.0-16.0 [facility] McKinneyHematocrit2019-03-07 09:13:00* Test Item Value Reference Range Interpretation Comments Hematocrit (test code = 4544-3) 36.4 34.2-44.1 [facility] McKinneyMean Corpuscular Euhncf9067-74-65 09:13:00* Test Item Value Reference Range Interpretation Comments Mean Corpuscular Volume (test code = 787-2) 86.9 81-99 [facility] McKinneyMean Corpuscular Fpqqsdytck1591-99-04 09:13:00* Test Item Value Reference Range Interpretation Comments Mean Corpuscular Hemoglobin (test code = 785-6) 28.9 28-32 [facility] Concent 2018-08-05 09:13:00* Test Item Value Reference Range Interpretation Comments Mean Corpuscular Hemoglobin Concent (test code = 786-4) 33.2 31-35 [facility] McKinneyRed Cell Distribution Kiihe8733-79-39 09:13:00* Test Item Value Reference Range Interpretation Comments Red Cell Distribution Width (test code = 50321-3) 13.8 11.7 -14.4 [facility] McKinneyPlatelet Knhfr0983-05-47 09:13:00* Test Item Value Reference Range Interpretation Comments Platelet Count (test code = 777-3) 270 140-360 [facility] McKinneyNeutrophils (%) (Auto)2018-08-05 09:13:00 * Test Item Value Reference Range Interpretation Comments Neutrophils (%) (Auto) (test code = 03057-7) 65.9 38.7-80.0 [facility] McKinneyLymphocytes (%) (Auto)2018-08-05 09:13:00 * Test Item Value Reference Range Interpretation Comments Lymphocytes (%) (Auto) (test code = 736-9) 26.1 18.0-39.1 [facility] McKinneyMonocytes (%) (Auto)2018-08-05 09:13:00* Test Item Value Reference Range Interpretation Comments Monocytes (%) (Auto) (test code = 5905-5) 5.5 4.4-11.3 [facility]neyEosinophils (%) (Auto)2018-08-05 09:13:00 * Test Item Value Reference Range Interpretation Comments Eosinophils (%) (Auto) (test code = 713-8) 1.9 0.0-6.0 [facility]neyBasophils (%) (Auto)2018-08-05 09:13:00* Test Item Value Reference Range Interpretation Comments Basophils (%) (Auto) (test code = 706-2) 0.6 0.0-1.0 [facility] McKinneyIM GRANULOCYTES %2018-08-05 09:13:00* Test Item Value Reference Range Interpretation Comments IM GRANULOCYTES % (test code = IM GRANULOCYTES %) 0.0 0.0- 1.0 [facility]neyNeutrophils # (Auto)2018-08-05 09:13:00* Test Item Value Reference Range Interpretation Comments Neutrophils # (Auto) (test code = 751-8) 3.1 2.1-6.9 [facility] McKinneyLymphocytes # (Auto)2018-08-05 09:13:00* Test Item Value Reference Range Interpretation Comments Lymphocytes # (Auto) (test code = 12836-9) 1.2 1.0-3.2 [facility] McKinneyMonocytes # (Auto)2018-08-05 09:13:00* Test Item Value Reference Range Interpretation Comments Monocytes # (Auto) (test code = 742-7) 0.3 0.2-0.8 [facility]neyEosinophils # (Auto)2018-08-05 09:13:00* Test Item Value Reference Range Interpretation Comments Eosinophils # (Auto) (test code = 711-2) 0.1 0.0-0.4 [facility]neyBasophils # (Auto)2018-08-05 09:13:00* Test Item Value Reference Range Interpretation Comments Basophils # (Auto) (test code = 704-7) 0.0 0.0-0.1 [facility] McKinneyAbsolute Immature Granulocyte (auto 2018-08-05 09:13:00* Test Item Value Reference Range Interpretation Comments Absolute Immature Granulocyte (auto (alexa t code = Absolute Immature Granulocyte (auto) 0 0-0.1 [facility] McKinneyWhite Blood Jvmpi0050-35-68 09:13:00* Test Item Value Reference Range Interpretation Comments White Blood Count (test code = 6690-2) 4.72 4.8-10.8 L [facility] McKinneyRed Blood Xnpty4788-65-03 09:13:00* Test Item Value Reference Range Interpretation Comments Red Blood Count (test code = 789-8) 4.19 3.6-5.1 [facility] McKinneyHemoglobin2019-03-07 09:13:00* Test Item Value Reference Range Interpretation Comments Hemoglobin (test code = 69882-3) 12.1 12.0-16.0 [facility] McKinneyHematocrit2019-03-07 09:13:00* Test Item Value Reference Range Interpretation Comments Hematocrit (test code = 4544-3) 36.4 34.2-44.1 [facility] McKinneyMean Corpuscular Evqvvn3816-79-30 09:13:00* Test Item Value Reference Range Interpretation Comments Mean Corpuscular Volume (test code = 787-2) 86.9 81-99 [facility] McKinneyMean Corpuscular Efuktyeqja0711-32-42 09:13:00* Test Item Value Reference Range Interpretation Comments Mean Corpuscular Hemoglobin (test code = 785-6) 28.9 28-32 [facility] McKinneyMean Corpuscular Hemoglobin Concent 2018-08-05 09:13:00* Test Item Value Reference Range Interpretation Comments Mean Corpuscular Hemoglobin Concent (test code = 786-4) 33.2 31-35 [facility] McKinneyRed Cell Distribution Rroek4971-88-05 09:13:00* Test Item Value Reference Range Interpretation Comments Red Cell Distribution Width (test code = 61646-1) 13.8 11.7 -14.4 [facility] McKinneyPlatelet Ineof8154-71-62 09:13:00* Test Item Value Reference Range Interpretation Comments Platelet Count (test code = 777-3) 270 140-360 [facility] McKinneyNeutrophils (%) (Auto)2018-08-05 09:13:00 * Test Item Value Reference Range Interpretation Comments Neutrophils (%) (Auto) (test code = 69307-4) 65.9 38.7-80.0 [facility] McKinneyLymphocytes (%) (Auto)2018-08-05 09:13:00 * Test Item Value Reference Range Interpretation Comments Lymphocytes (%) (Auto) (test code = 736-9) 26.1 18.0-39.1 [facility] McKinneyMonocytes (%) (Auto)2018-08-05 09:13:00* Test Item Value Reference Range Interpretation Comments Monocytes (%) (Auto) (test code = 5905-5) 5.5 4.4-11.3 [facility]neyEosinophils (%) (Auto)2018-08-05 09:13:00 * Test Item Value Reference Range Interpretation Comments Eosinophils (%) (Auto) (test code = 713-8) 1.9 0.0-6.0 [facility] McKinneyBasophils (%) (Auto)2018-08-05 09:13:00* Test Item Value Reference Range Interpretation Comments Basophils (%) (Auto) (test code = 706-2) 0.6 0.0-1.0 [facility] McKinneyIM GRANULOCYTES %2018-08-05 09:13:00* Test Item Value Reference Range Interpretation Comments IM GRANULOCYTES % (test code = IM GRANULOCYTES %) 0.0 0.0- 1.0 [facility] McKinneyNeutrophils # (Auto)2018-08-05 09:13:00* Test Item Value Reference Range Interpretation Comments Neutrophils # (Auto) (test code = 751-8) 3.1 2.1-6.9 [facility] McKinneyLymphocytes # (Auto)2018-08-05 09:13:00* Test Item Value Reference Range Interpretation Comments Lymphocytes # (Auto) (test code = 15366-3) 1.2 1.0-3.2 [facility] McKinneyMonocytes # (Auto)2018-08-05 09:13:00* Test Item Value Reference Range Interpretation Comments Monocytes # (Auto) (test code = 742-7) 0.3 0.2-0.8 [facility] McKinneyEosinophils # (Auto)2018-08-05 09:13:00* Test Item Value Reference Range Interpretation Comments Eosinophils # (Auto) (test code = 711-2) 0.1 0.0-0.4 [facility] McKinneyBasophils # (Auto)2018-08-05 09:13:00* Test Item Value Reference Range Interpretation Comments Basophils # (Auto) (test code = 704-7) 0.0 0.0-0.1 [facility] McKinneyAbsolute Immature Granulocyte (auto 2018-08-05 09:13:00* Test Item Value Reference Range Interpretation Comments Absolute Immature Granulocyte (auto (alexa t code = Absolute Immature Granulocyte (auto) 0 0-0.1 [facility] McKinneyWhite Blood Ualin4385-29-97 09:13:00* Test Item Value Reference Range Interpretation Comments White Blood Count (test code = 6690-2) 4.72 4.8-10.8 L [facility] McKinneyRed Blood Xewkf1810-89-86 09:13:00* Test Item Value Reference Range Interpretation Comments Red Blood Count (test code = 789-8) 4.19 3.6-5.1 [facility] McKinneyHemoglobin2019-03-07 09:13:00* Test Item Value Reference Range Interpretation Comments Hemoglobin (test code = 71147-5) 12.1 12.0-16.0 [facility] McKinneyHematocrit2019-03-07 09:13:00* Test Item Value Reference Range Interpretation Comments Hematocrit (test code = 4544-3) 36.4 34.2-44.1 [facility] McKinneyMean Corpuscular Nqmmpn5065-27-48 09:13:00* Test Item Value Reference Range Interpretation Comments Mean Corpuscular Volume (test code = 787-2) 86.9 81-99 [facility] McKinneyMean Corpuscular Rpwhqtxhxc3321-42-28 09:13:00* Test Item Value Reference Range Interpretation Comments Mean Corpuscular Hemoglobin (test code = 785-6) 28.9 28-32 [facility] McKinneyMean Corpuscular Hemoglobin Concent 2018-08-05 09:13:00* Test Item Value Reference Range Interpretation Comments Mean Corpuscular Hemoglobin Concent (test code = 786-4) 33.2 31-35 [facility] McKinneyRed Cell Distribution Wblyt2999-97-46 09:13:00* Test Item Value Reference Range Interpretation Comments Red Cell Distribution Width (test code = 38968-2) 13.8 11.7 -14.4 [facility] McKinneyPlatelet Mhcgv5378-59-20 09:13:00* Test Item Value Reference Range Interpretation Comments Platelet Count (test code = 777-3) 270 140-360 [facility] McKinneyNeutrophils (%) (Auto)2018-08-05 09:13:00 * Test Item Value Reference Range Interpretation Comments Neutrophils (%) (Auto) (test code = 60440-7) 65.9 38.7-80.0 [facility] McKinneyLymphocytes (%) (Auto)2018-08-05 09:13:00 * Test Item Value Reference Range Interpretation Comments Lymphocytes (%) (Auto) (test code = 736-9) 26.1 18.0-39.1 [facility] McKinneyMonocytes (%) (Auto)2018-08-05 09:13:00* Test Item Value Reference Range Interpretation Comments Monocytes (%) (Auto) (test code = 5905-5) 5.5 4.4-11.3 [facility]neyEosinophils (%) (Auto)2018-08-05 09:13:00 * Test Item Value Reference Range Interpretation Comments Eosinophils (%) (Auto) (test code = 713-8) 1.9 0.0-6.0 [facility] McKinneyBasophils (%) (Auto)2018-08-05 09:13:00* Test Item Value Reference Range Interpretation Comments Basophils (%) (Auto) (test code = 706-2) 0.6 0.0-1.0 [facility] McKinneyIM GRANULOCYTES %2018-08-05 09:13:00* Test Item Value Reference Range Interpretation Comments IM GRANULOCYTES % (test code = IM GRANULOCYTES %) 0.0 0.0- 1.0 [facility] McKinneyNeutrophils # (Auto)2018-08-05 09:13:00* Test Item Value Reference Range Interpretation Comments Neutrophils # (Auto) (test code = 751-8) 3.1 2.1-6.9 [facility] McKinneyLymphocytes # (Auto)2018-08-05 09:13:00* Test Item Value Reference Range Interpretation Comments Lymphocytes # (Auto) (test code = 49961-0) 1.2 1.0-3.2 [facility] McKinneyMonocytes # (Auto)2018-08-05 09:13:00* Test Item Value Reference Range Interpretation Comments Monocytes # (Auto) (test code = 742-7) 0.3 0.2-0.8 [facility]neyEosinophils # (Auto)2018-08-05 09:13:00* Test Item Value Reference Range Interpretation Comments Eosinophils # (Auto) (test code = 711-2) 0.1 0.0-0.4 [facility]neyBasophils # (Auto)2018-08-05 09:13:00* Test Item Value Reference Range Interpretation Comments Basophils # (Auto) (test code = 704-7) 0.0 0.0-0.1 [facility] McKinneyAbsolute Immature Granulocyte (auto 2018-08-05 09:13:00* Test Item Value Reference Range Interpretation Comments Absolute Immature Granulocyte (auto (alexa t code = Absolute Immature Granulocyte (auto) 0 0-0.1 [facility]- [place] PELVIS TZEFJKJR2765-73-28 12:27:00 Name: ANGELA ESPINOSA [facility] : 1975 Age/S: 42 / F [address] [facility] Unit #: [id number] Loc: DEISY [place] [address] Phys: Jerri Bryson BLENDER / COOK Acct: [id number] Di s Date: Status: REG ER PHONE #: Exam Date: 07/29/2018 6740 FAX #: Reason: RLQ pain, eval ovary EXAMS: CPT CODE: [id number] US PELVIS COM PLETE [id number] EXAM: Pelvic and transvag inal ultrasound and [...] Kaur MD; [place] Bryson NP Technologist: Veronika Templeton(Yaron)(ARRT) Trnscb D ate/Time: 07/29/2018 (1227) RadhaW Orig Print D/T: S: 07/29/2018 (2024) Probe: PAGE 1 Signed Report - US TRANSVAGINAL NON [id number] 12:27:00 Name: ANGELA ESPINOSA [facility] : 1975 Age/S: 42 / F [address] Unit #: [id number] Loc: DEISY [place] [address] Phys: India Bryson BLENDER / COOK Acct: [id number] Dis Date: Status: REG ER PHONE #: [phone] Exam Date: 07/29/2018 7139 FAX #: [phone] Reason: RLQ pain, eval ovary EXAMS: CPT CODE: [id number] [place] [id number] EXAM: Pelvic and transvaginal ultrasound and duplex [...] MD; India Bryson NP Technologist: Veronika Templeton(S)(ARRT) Trniab Date/Time: 07/29/2018 (1227) tFIONAGRW Orig Print D/T: S: 07/29/2018 (1230) Probe: [id number] PAGE 1 Signed Report - DUP AB/PEL/SC [id number] 12:27:00 Name: ANGELA ESPINOSA [facility] : 1975 Age/S: 42 / F [address] [facility] Unit #: [id number] Loc: [place] [address] Phys: Jerri Bryson NP Acct: [id number] Di s Date: Status: REG ER PHONE #: [phone] Exam Date: 07/29/2018 3053 FAX #: Reason: RLQ pain EXAMS: CPT CODE: [id number] DUP AB/PEL/SC COMP [id number] EXAM: Pelvic and transvag inal ultrasound and [...] Technologist: Veronika Templeton(S)(ARRT) Trnscb D ate/Time: 07/29/2018 (3657) Dayna Orig Print D/T: S: 07/29/2018 (5694) Probe: PAGE 1 Signed Report - US ABDOMEN [id number] 12:25:00 Name: ANGELA ESPINOSA [facility] : 1975 Age/S: 42 / F [address] [facility] Unit #: [id number] Loc: [place] [address] Phys: India Brsyon NP Acct: [id number] Dis Date: Status: REG ER PHONE #: [phone] Exam Date: 07/29/2018 1101 FAX #: [phone] Reason: RLQ pain EXAMS: CPT CODE: [id number] US ABDOMEN COMPLETE [id number] EXAM: Ultrasound of the abdomen; INFORMATION: Abdominal [...] M.D. CC: India Bryson NP Technologist: Veronika Templeton(S)(ARRT) Trnscb Date/Time: 07/29/2018 (1225) Dayna Orig Print D/T: S: 07/29/2018 (2196) Probe: PAGE 1 Signed Report CBC W/O [id number] 09:37:00* Test Item Value Reference Range Interpretation [...] code = MPV) fL 6.7-11.0 CBC W/O [id number] 09:37:00* Test Item Value Reference Range Interpretation [...] MPV) 9.4 fL 6.7-11.0 N BASIC METABOLIC [id number] 09:29:00* Test Item Value Reference Range Interpretation [...] CA) 8.4 mg/dL 8.5-10.1 L HEPATIC FUNCTION [id number] 09:29:00* Test Item Value Reference Range Interpretation [...] reference range due to change in reagent. [id number] 09:29:00* Test Item Value Reference Range Interpretation Comments LIPASE (test code = LIP) 188 U/L 73.0-393.0 N HCG SERUM [id number] 09:29:00* Test Item Value Reference Range Interpretation Comments HCG SERUM QUAL (test code = HCGQL) NEGATIVE NEGATIVE This HCGQL test is NOT applicable for MALE patients.Check with nurse about probable order error.If Tumor Marker Test needed, nurse should order test "HCGTU"(Test #550.34346) BASIC METABOLIC [id number] 09:22:00* Test Item Value Reference Range Interpretation [...] code = CA) mg/dL 8.5-10.1 HEPATIC FUNCTION [id number] 09:22:00* Test Item Value Reference Range Interpretation [...] TOTAL (test code = ALKP) IUnit/L 45-117 [id number] 09:22:00* Test Item Value Reference Range Interpretation Comments LIPASE (test code = LIP) U/L 73.0-393.0 HCG SERUM [id number] 09:22:00* Test Item Value Reference Range Interpretation Comments HCG SERUM QUAL (test code = HCGQL) NEGATIVE NEGATIVE This HCGQL test is NOT applicable for MALE patients.Check with nurse about probable order error.If Tumor Marker Test needed, nurse should order test "HCGTU"(Test #550.53499) BASIC METABOLIC [id number] 09:22:00* Test Item Value Reference Range Interpretation [...] code = CA) mg/dL 8.5-10.1 HEPATIC FUNCTION [id number] 09:22:00* Test Item Value Reference Range Interpretation [...] TOTAL (test code = ALKP) IUnit/L 45-117 [id number] 09:22:00* Test Item Value Reference Range Interpretation Comments LIPASE (test code = LIP) U/L 73.0-393.0 HCG SERUM [id number] 09:22:00* Test Item Value Reference Range Interpretation Comments HCG SERUM QUAL (test code = HCGQL) NEGATIVE NEGATIVE This HCGQL test is NOT applicable for MALE patients.Check with nurse about probable order error.If Tumor Marker Test needed, nurse should order test "HCGTU"(Test #550.12450) URINALYSIS [id number] 09:15:00* Test Item Value Reference Range Interpretation [...] FEW #/LPF FEW Urine Source? Clean CatchURINALYSIS [id number] 09:12:00* Test Item Value Reference Range Interpretation [...] 0-5 Urine Source? Clean CatchDRUGS OF ABUSE [id number] 10:04:00* Test Item Value Reference Range Interpretation Comments UR COCAINE (test code = COCAU) NEGATIVE NEGATIVE DETECTION CUT OFF: 150 ng/mL UR CANNABINOIDS (test code = CANU) POSITIVE NEGATIVE A RESULTS CALLED TO Anna AscencioREAD BACK & CONFIRMED? Y.BY FBALAJI.LDT 07/22/18 1001. DETECTION CUT OFF: 50 ng/mL UR AMPHETAMINE (test code = AMPHU) NEGATIVE NEGATIVE DETECTION CUT OFF: 500 ng/mL UR BARBITURATE QUAL (test code = BARBQLU) NEGATIVE NEGATIVE DETECTION CUT OFF: 200 ng/mL UR BENZODIAZEPINE (test code = BENZU) POSITIVE NEGATIVE A RESULTS CALLED TO ANNA AscencioREAD BACK & CONFIRMED? Y.BY RAEANN 07/22/18 1002. DETECTION CUT OFF: 150 ng/mL UR OPIATES QUAL (test code = OPIAQLU) NEGATIVE NEGATIVE DETECTION CUT OFF: 100 ng/mL UR PHENCYCLIDINE (PCP) (test code = PHENCU) NEGATIVE NEGATIVE DETECTION CUT OFF: 25 ng/mL UA RFLX MICR CULT IF [id number] 09:43:00* Test Item Value Reference Range Interpretation [...] = MUCU) RARE NONE SEEN COMPREHENSIVE METABOLIC [id number] 11:56:00* Test Item Value Reference Range Interpretation [...] code = ALKP) 102 units/L 46-116 N [id number] 11:56:00* Test Item Value Reference Range Interpretation Comments LIPASE (test code = LIP) 108 units/L 73-393 N CBC W/AUTO [id number] 11:30:00* Test Item Value Reference Range Interpretation [...] PLTMR) NORMAL YOANA L DRUGS OF ABUSE [id number] 11:17:00* Test Item Value Reference Range Interpretation Comments UR COCAINE (test code = COCAU) NEGATIVE NEGATIVE DETECTION CUT OFF: 150 ng/mL UR CANNABINOIDS (test code = CANU) POSITIVE NEGATIVE A DETECTION CUT OFF: 50 ng/mLPreviously reported result: POSITIVE Edited by: [address].[employer] on 07/03/18:1116CANU prev. reported as:POSITIVE H . RESULTS CALLED TO .. READ BACK & CONFIRMED? . BY [address].KG 07/03/18 1114. UR AMPHETAMINE (test code = AMPHU) NEGATIVE NEGATIVE DETECTION CUT OFF: 500 ng/mL UR BARBITURATE QUAL (test code = BARBQLU) NEGATIVE NEGATIVE DETECTION CUT OFF: 200 ng/mL UR BENZODIAZEPINE (test code = BENZU) POSITIVE NEGATIVE A RESULTS CALLED TO WANDA CHOPRA BACK & CONFIRMED? HARISH [employer]LAB.KG 07/03/18 1113. DETECTION CUT OFF: 150 ng/mLPreviously reported result: POSITIVE Edited by: [address].KG on 07/03/18:1116BENZU prev. reported as:POSITIVE H . RESULTS CALLED TO .. READ BACK & CONFIRMED? . BY [facility] HealthLAB.KG 07/03/18 1113. UR OPIATES QUAL (test code = OPIAQLU) POSITIVE NEGATIVE A RESULTS CALLED TO WANDA GREAD BACK & CONFIRMED? YBY .LAB. 07/03/18 1114. DETECTION CUT OFF: 100 ng/mLPreviously reported result: POSITIVE Edited by: .LAB. on 07/03/18:1117OPIAQLU prev. reported as:POSITIVE H . RESULTS CALLED TO .. READ BACK & CONFIRMED? . BY .LAB. 07/03/18 1114. UR PHENCYCLIDINE (PCP) (test code = PHENCU) NEGATIVE NEGATIVE DETECTION CUT OFF: 25 ng/mL DRUGS OF ABUSE [id number] 11:16:00* Test Item Value Reference Range Interpretation Comments UR COCAINE (test code = COCAU) NEGATIVE NEGATIVE DETECTION CUT OFF: 150 ng/mL UR CANNABINOIDS (test code = CANU) POSITIVE NEGATIVE A RESULTS CALLED TO .READ BACK & CONFIRMED? .BY .LAB. 07/03/18 1114. DETECTION CUT OFF: 50 ng/mL UR AMPHETAMINE (test code = AMPHU) NEGATIVE NEGATIVE DETECTION CUT OFF: 500 ng/mL UR BARBITURATE QUAL (test code = BARBQLU) NEGATIVE NEGATIVE DETECTION CUT OFF: 200 ng/mL UR BENZODIAZEPINE (test code = BENZU) POSITIVE NEGATIVE A RESULTS CALLED TO .READ BACK & CONFIRMED? .BY .LAB. 07/03/18 1113. DETECTION CUT OFF: 150 ng/mL UR OPIATES QUAL (test code = OPIAQLU) POSITIVE NEGATIVE A RESULTS CALLED TO .READ BACK & CONFIRMED? .BY .LAB. 07/03/18 1114. DETECTION CUT OFF: 100 ng/mL UR PHENCYCLIDINE (PCP) (test code = PHENCU) NEGATIVE NEGATIVE DETECTION CUT OFF: 25 ng/mL UR HCG [id number] 11:00:00* Test Item Value Reference Range Interpretation Comments UR HCG QUAL (test code = HCGQLU) NEGATIVE 1. Very dilute urine specimens, as indicated by a lowspecific gravity, may not contain member services representative levels ofhCG. 2. False negative results may occur when the levels of hCGare below the sensitivity level of the test. If is still suspected, a first morningurine specimen should be collected 48 hours later andtested. - XR ABDOMEN 1 [id number] 09:21:00 Patient Name: ANGELA ESPINOSA Unit No: [id number] EXAMS: CPT CODE: [id number] XR ABDOMEN 1 V 95291 ABDOMEN KUB, 07/01/2018: COMPARISON: March 22, 2018 [...] MD Technologist: RT Chrissie Trnscrbd D/ (920) SilasAJ13 Orig Print D/T: S: 07/01/2018 (09) [facility] NAME: ANGELA ESPINOSA Radiology Department PHYS: Radha Hill [address] : 1975 AGE: 42 SEX: F [place], [place] [address] LOC: ALIVIA PHONE #: [phone] EXAM DATE: 07/01/2018 STATUS: REG ER FAX #: [phone] RAD NO: Page 1 Signed Report COMPREHENSIVE METABOLIC [id number] 09:02:00* Test Item Value Reference Range Interpretation [...] code = ALKP) 102 units/L 46-116 N [id number] 09:02:00* Test Item Value Reference Range Interpretation Comments AMYLASE (test code = JANIE) 56 units/L 30-110 N [id number] 09:02:00* Test Item Value Reference Range Interpretation Comments LIPASE (test code = LIP) 114 units/L 73-393 N CBC W/AUTO [id number] 08:48:00* Test Item Value Reference Range Interpretation [...] code = PLTMR) NORMAL YOANA L HERNIA [id number] 20:35:00 RUN DATE: 06/29/18 [facility] PAGE 1 RUN TIME: 1229 Specimen Inqui ry RUN USER: INTERFACE PATIENT: ANGELA ESPINOSA ACCT #: [id number] [facility] #: [id number] AGE/SX: 42/F ROOM: [facility] RE06/23/18FELICIANO DR: Jose Layne : [birth year] BED: A DIS: 06/27/18 STATUS: DIS IN TLOC: SPEC #: [id number] RECD: 06/25/18 STATUS: SHAGUFTA CONNOLLY #: [id number] MICHELLE: 06/25/18- SUBM DR: Jose Layne MD ENTERED: 06/25/18 SP TYPE: HERSAC OTHR DR: ORDERED: LEVEL II SURGIC/2 CODES: H0P143 - SOFT TISSUES, N PROCEDURES: LEVEL II [...] identification only) Tissue code 1 CPT code(s): 83432, 56205 pkg/wpd dt: 06/28/18 GROSS DESCRIPTION EARL OMIC [...] iscrete discolored nor firm area is noted. Clam Bed Laborer sections are submit luisito labeled A . [...] Specimen Inquiry RUN USER: INTERFACE SPEC #: [id number] PATIENT: ANGELA NAIR #[id number] (Continued) GROSS DESC RIPTION (Continued) Clam Bed Laborer sections of the mesh and adhesed tissue are submitted labeled Roxanna goel 06/25/18 @ 1145 MICROSCOPIC DESCRIPT ION Specimen #1 consists of adipose tissue and fibrous tissue. Specimen #2 consists of fibroconnective tissue containing numerous fragments of polari zable foreign material which are associated with fibrosis, a mild to moderate infiltrate of lymphocytes and plasma cells, and a foreign body giant cell reac tion. Also present within the container are pieces of orthopedic hardware. quincy/elias dt: 06/28/18 Signed Renay Hopkins 06/28/182034 END OF REPORT UR HCG [id number] 20:08:00* Test Item Value Reference Range Interpretation Comments UR HCG QUAL (test code = HCGQLU) NEGATIVE 1. Very dilute urine specimens, as indicated by a lowspecific gravity, may not contain member services representative levels ofhCG. 2. False negative results may occur when the levels of hCGare below the sensitivity level of the test. If is still suspected, a first morningurine specimen should be collected 48 hours later andtested. COMPREHENSIVE METABOLIC [id number] 11:42:00* Test Item Value Reference Range Interpretation [...] code = ALKP) 96 units/L 46-116 N [id number] 11:42:00* Test Item Value Reference Range Interpretation Comments LIPASE (test code = LIP) 129 units/L 73-393 N CBC W/AUTO [id number] 11:11:00* Test Item Value Reference Range Interpretation [...] PLTMR) NORMAL YOANA L DRUGS OF ABUSE [id number] 10:55:00* Test Item Value Reference Range Interpretation Comments UR COCAINE (test code = COCAU) NEGATIVE NEGATIVE DETECTION CUT OFF: 150 ng/mL UR CANNABINOIDS (test code = CANU) POSITIVE NEGATIVE A RESULTS CALLED TO MARGOTH Tim.READ BACK & CONFIRMED? Y.BY F.LAB.[facility] 06/23/18 1054. DETECTION CUT OFF: 50 ng/mL UR AMPHETAMINE (test code = AMPHU) NEGATIVE NEGATIVE DETECTION CUT OFF: 500 ng/mL UR BARBITURATE QUAL (test code = BARBQLU) NEGATIVE NEGATIVE DETECTION CUT OFF: 200 ng/mL UR BENZODIAZEPINE (test code = BENZU) POSITIVE NEGATIVE A RESULTS CALLED TO TOBIAS.READ BACK & CONFIRMED? Y.BY F.LAB.[facility] 06/23/18 1054. DETECTION CUT OFF: 150 ng/mL UR OPIATES QUAL (test code = OPIAQLU) NEGATIVE NEGATIVE DETECTION CUT OFF: 100 ng/mL UR PHENCYCLIDINE (PCP) (test code = PHENCU) NEGATIVE NEGATIVE DETECTION CUT OFF: 25 ng/mL UA RFLX MICR CULT IF [id number] 10:27:00* Test Item Value Reference Range Interpretation [...] code = MUCU) RARE NONE SEEN Urine [id number] 10:28:00* Test Item Value Reference Range Interpretation Comments Urine WBC (test code = 5821-4) 6-10 0-5 H [facility] [id number] 10:28:00* Test Item Value Reference Range Interpretation Comments Urine RBC (test code = 21703-2) NONE 0-5 [facility]neyU[facility] Trwwjkfp3336-17-56 10:28:00* Test Item Value Reference Range Interpretation Comments Urine Bacteria (test code = 13287-9) MODERATE NONE H [facility]neyUrine Epithelial Valmn1804-11-41 10:28:00 * Test Item Value Reference Range Interpretation Comments Urine Epithelial Cells (test code = 19935-4) RARE NONE [facility] Ednzz3126-45-83 10:24:00* Test Item Value Reference Range Interpretation Comments Sodium Level (test code = 2951-2) 138 136-145 [facility] McKinneyPotassium Fmdeq4436-83-98 10:24:00* Test Item Value Reference Range Interpretation Comments Potassium Level (test code = 2823-3) 3.7 3.5-5.1 [facility]neyChloride Uzvyn4450-09-90 10:24:00* Test Item Value Reference Range Interpretation Comments Chloride Level (test code = 2075-0) 108 98-107 H [facility] McKinneyCarbon Dioxide Laexa6742-97-08 10:24:00* Test Item Value Reference Range Interpretation Comments Carbon Dioxide Level (test code = 2028-9) 23 22-29 [facility] McKinneyAnion Vyh6512-23-27 10:24:00* Test Item Value Reference Range Interpretation Comments Anion Gap (test code = 53699-6) 10.7 8-16 [facility] McKinneyBlood Urea Xvdqqxuy5946-27-79 10:24:00* Test Item Value Reference Range Interpretation Comments Blood Urea Nitrogen (test code = 3094-0) 9 7-26 [facility] McKinneyCreatinine2019-01-15 10:24:00* Test Item Value Reference Range Interpretation Comments Creatinine (test code = 2160-0) 0.99 0.57-1.11 [facility] McKinneyBUN/Creatinine Rnpdp2100-68-51 10:24:00* Test Item Value Reference Range Interpretation Comments BUN/Creatinine Ratio (test code = 3097-3) 9 6-25 [facility] McKinneyEstimat Glomerular Filtration Rate 2018-06-15 10:24:00* Test Item Value Reference Range Interpretation Comments Estimat Glomerular Filtration Rate (test code = 188358591) > 60 >60 Ranges were taken from the National Kidney Disease Education Program and the [facility] Foundation literature.Reference ranges:60 or greater: Mhnmbe21-72 ( for 3 consecutive months): Chronic kidney disease 15 or less: Kidney failureBaylor Scott & White Medical Center – McKinneyGlucose Ftxfc7770-24-07 10:24:00* Test Item Value Reference Range Interpretation Comments Glucose Level (test code = HYJ6654) 76 74-118 [facility] McKinneyCalcium Hlmyy1567-72-55 10:24:00* Test Item Value Reference Range Interpretation Comments Calcium Level (test code = 36386-8) 8.5 8.4-10.2 [facility] McKinneyTotal Sjjjdcaeo4003-65-76 10:24:00* Test Item Value Reference Range Interpretation Comments Total Bilirubin (test code = 1975-2) 0.2 0.2-1.2 [facility] McKinneyAspartate Amino Transf (AST/SGOT) 2018-06-15 10:24:00* Test Item Value Reference Range Interpretation Comments Aspartate Amino Transf (AST/SGOT) (test code = Aspartate Amino Transf (AST/SGOT)) 17 5-34 [facility] McKinneyAlanine Aminotransferase (ALT/SGPT) 2018-06-15 10:24:00* Test Item Value Reference Range Interpretation Comments Alanine Aminotransferase (ALT/SGPT) (test code = 1742-6) 19 0-55 [facility] McKinneyTotal Dkmkcjs9909-54-08 10:24:00* Test Item Value Reference Range Interpretation Comments Total Protein (test code = 2885-2) 6.3 6.5-8.1 L [facility] McKinneyAlbumin2019-01-15 10:24:00* Test Item Value Reference Range Interpretation Comments Albumin (test code = 1751-7) 3.6 3.5-5.0 [facility] McKinneyGlobulin2019-01-15 10:24:00* Test Item Value Reference Range Interpretation Comments Globulin (test code = 79247-2) 2.7 2.3-3.5 [facility] McKinneyAlbumin/Globulin Ujwyw2479-77-72 10:24:00 * Test Item Value Reference Range Interpretation Comments Albumin/Globulin Ratio (test code = 1759-0) 1.3 0.8-2.0 [facility] McKinneyAlkaline Eavakannqjg2028-92-29 10:24:00* Test Item Value Reference Range Interpretation Comments Alkaline Phosphatase (test code = 6768-6) 87 40-150 [facility] McKinneyAmylase Pmgck0783-57-74 10:24:00* Test Item Value Reference Range Interpretation Comments Amylase Level (test code = 1798-8) 101 25-125 [facility] McKinneyLipase2019-01-15 10:24:00* Test Item Value Reference Range Interpretation Comments Lipase (test code = 3040-3) 30 8-78 [facility] McKinneyAmylase Jxcje5963-75-53 10:24:00* Test Item Value Reference Range Interpretation Comments Amylase Level (test code = 1798-8) 101 25-125 [facility] McKinneyAmylase Kbrrg2845-78-13 10:24:00* Test Item Value Reference Range Interpretation Comments Amylase Level (test code = 1798-8) 101 25-125 [facility] McKinneyAmylase Dpdes9915-65-27 10:24:00* Test Item Value Reference Range Interpretation Comments Amylase Level (test code = 1798-8) 101 25-125 [facility] McKinneyUrine Opiates Volpnr6087-90-52 10:14:00* Test Item Value Reference Range Interpretation Comments Urine Opiates Screen (test code = 23609-9) NEGATIVE NEGATIVE ALL TESTS PERFORMED MANUALLY ON [employer] TOX/SEE TESTBaylor Scott & White Medical Center – McKinneyUrine Barbiturates Alfhnv2580-65-80 10:14:00* Test Item Value Reference Range Interpretation Comments Urine Barbiturates Screen (test code = 869816992) NEGATIVE NEGA TIVE [facility] McKinneyUrine Phencyclidine Dbcylu1441-98-54 10:14:00* Test Item Value Reference Range Interpretation Comments Urine Phencyclidine Screen (test code = 34996-0) NEGATIVE NEGAT HENRY [facility] McKinneyUrine Amphetamines Lwrnom5280-24-42 10:14:00* Test Item Value Reference Range Interpretation Comments Urine Amphetamines Screen (test code = 59424-2) NEGATIVE NEGATI VE [facility] McKinneyUrine Methamphetamines Goezmu7465-49-01 10:14:00* Test Item Value Reference Range Interpretation Comments Urine Methamphetamines Screen (test code = Urine Metha mphetamines Screen) NEGATIVE NEGATIVE [facility] McKinneyUrine Benzodiazepines Fvunug7503-47-20 10:14:00* Test Item Value Reference Range Interpretation Comments Urine Benzodiazepines Screen (test code = 64958-0) POSITIVE NEG ATIVE H This test provides only a screen. Positive results should be repeated by a confi rmatory test.[facility] SunnyvaleUrine Cocaine Screen 2018-06-15 10:14:00* Test Item Value Reference Range Interpretation Comments Urine Cocaine Screen (test code = 3398-5) POSITIVE NEGATIVE H This test provides only a screen. Positive results should be repeated by a confi rmatory test.[facility] SunnyvaleUrine Cannabinoids Screen 2018-06-15 10:14:00* Test Item Value Reference Range Interpretation Comments Urine Cannabinoids Screen (test code = 97072-6) POSITIVE NEGATI VE H This test provides only a screen. Positive results should be repeated by a confi rmatory test.[facility] McKinneyUrine Methadone Screen 2018-06-15 10:14:00* Test Item Value Reference Range Interpretation Comments Urine Methadone Screen (test code = 56515-7) NEGATIVE NEGATIVE THESE RESULTS ARE FOR MEDICAL TREATMENT ONLYTHIS REPORT CONTAINS UNCONFIR MED SCREENING RESULTS*POSITIVE RESULTS WILL BE CONFIRMED BY REFERENCE LAB UPON R EQUEST CUT-OFFDRUG CLASS CONCENTRATION ng/mLAmphetamines 1000Methamphetamines 1000Cocaine Metabolite 300Opiate 300Phencyc lidine 25Cannabinoid 50Barbiturates 300Benzodiazepine 300Methadone 300[facility] McKinneyUrine Opiates Cnpfvy1046-74-63 10:14:00* Test Item Value Reference Range Interpretation Comments Urine Opiates Screen (test code = 33650-9) NEGATIVE NEGATIVE ALL TESTS PERFORMED MANUALLY ON [employer] TOX/SEE TESTBaylor Scott & [facility] Center – McKinneyUrine Barbiturates Rikwro6657-32-60 10:14:00* Test Item Value Reference Range Interpretation Comments Urine Barbiturates Screen (test code = 762902438) NEGATIVE NEGA TIVE [facility] McKinneyUrine Phencyclidine Kcursa5070-37-05 10:14:00* Test Item Value Reference Range Interpretation Comments Urine Phencyclidine Screen (test code = 30807-7) NEGATIVE NEGAT HENRY [facility] McKinneyUrine Amphetamines Bbmjtm0942-11-00 10:14:00* Test Item Value Reference Range Interpretation Comments Urine Amphetamines Screen (test code = 00046-7) NEGATIVE NEGATI VE [facility] McKinneyUrine Methamphetamines Rwzacv7995-38-57 10:14:00* Test Item Value Reference Range Interpretation Comments Urine Methamphetamines Screen (test code = Urine Metha mphetamines Screen) NEGATIVE NEGATIVE [facility] McKinneyUrine Benzodiazepines Lldefx5554-85-38 10:14:00* Test Item Value Reference Range Interpretation Comments Urine Benzodiazepines Screen (test code = 77364-6) POSITIVE NEG ATIVE H This test provides only a screen. Positive results should be repeated by a confi rmatory test.[facility]valeUrine Cocaine Screen 2018-06-15 10:14:00* Test Item Value Reference Range Interpretation Comments Urine Cocaine Screen (test code = 3398-5) POSITIVE NEGATIVE H This test provides only a screen. Positive results should be repeated by a confi rmatory test.[facility]valeUrine Cannabinoids Screen 2018-06-15 10:14:00* Test Item Value Reference Range Interpretation Comments Urine Cannabinoids Screen (test code = 37184-6) POSITIVE NEGATI VE H This test provides only a screen. Positive results should be repeated by a confi rmatory test.[facility]neyUrine Methadone Screen 2018-06-15 10:14:00* Test Item Value Reference Range Interpretation Comments Urine Methadone Screen (test code = 60972-4) NEGATIVE NEGATIVE THESE RESULTS ARE FOR MEDICAL TREATMENT ONLYTHIS REPORT CONTAINS UNCONFIR MED SCREENING RESULTS*POSITIVE RESULTS WILL BE CONFIRMED BY REFERENCE LAB UPON R EQUEST CUT-OFFDRUG CLASS CONCENTRATION ng/mLAmphetamines 1000Methamphetamines 1000Cocaine Metabolite 300Opiate 300Phencyc lidine 25Cannabinoid 50Barbiturates 300Benzodiazepine 300Methadone 300[facility] McKinneyUrine Opiates Niamwq6749-87-30 10:14:00* Test Item Value Reference Range Interpretation Comments Urine Opiates Screen (test code = 09772-6) NEGATIVE NEGATIVE ALL TESTS PERFORMED MANUALLY ON [employer] TOX/SEE TESTB[facility] McKinneyUrine Barbiturates Rgqsxj1330-77-16 10:14:00* Test Item Value Reference Range Interpretation Comments Urine Barbiturates Screen (test code = 507500218) NEGATIVE NEGA TIVE [facility] McKinneyUrine Phencyclidine Rgmgfw0583-22-96 10:14:00* Test Item Value Reference Range Interpretation Comments Urine Phencyclidine Screen (test code = 83641-0) NEGATIVE NEGAT HENRY [facility] McKinneyUrine Amphetamines Tkondm1349-92-56 10:14:00* Test Item Value Reference Range Interpretation Comments Urine Amphetamines Screen (test code = 95962-3) NEGATIVE NEGATI VE [facility] McKinneyUrine Methamphetamines Kgrfsi1155-13-70 10:14:00* Test Item Value Reference Range Interpretation Comments Urine Methamphetamines Screen (test code = Urine Metha mphetamines Screen) NEGATIVE NEGATIVE [facility] McKinneyUrine Benzodiazepines Opytsz7677-10-11 10:14:00* Test Item Value Reference Range Interpretation Comments Urine Benzodiazepines Screen (test code = 44158-3) POSITIVE NEG ATIVE H This test provides only a screen. Positive results should be repeated by a confi rmatory test.[facility]valeUrine Cocaine Screen 2018-06-15 10:14:00* Test Item Value Reference Range Interpretation Comments Urine Cocaine Screen (test code = 3398-5) POSITIVE NEGATIVE H This test provides only a screen. Positive results should be repeated by a confi rmatory test.[facility]aleUrine Cannabinoids Screen 2018-06-15 10:14:00* Test Item Value Reference Range Interpretation Comments Urine Cannabinoids Screen (test code = 35508-8) POSITIVE NEGATI VE H This test provides only a screen. Positive results should be repeated by a confi rmatory test.[facility]neyUrine Methadone Screen 2018-06-15 10:14:00* Test Item Value Reference Range Interpretation Comments Urine Methadone Screen (test code = 87739-7) NEGATIVE NEGATIVE THESE RESULTS ARE FOR MEDICAL TREATMENT ONLYTHIS REPORT CONTAINS UNCONFIR MED SCREENING RESULTS*POSITIVE RESULTS WILL BE CONFIRMED BY REFERENCE LAB UPON R EQUEST CUT-OFFDRUG CLASS CONCENTRATION ng/mLAmphetamines 1000Methamphetamines 1000Cocaine Metabolite 300Opiate 300Phencyc lidine 25Cannabinoid 50Barbiturates 300Benzodiazepine 300Methadone 300[facility]neyUrine Opiates Sjpupe8361-69-43 10:14:00* Test Item Value Reference Range Interpretation Comments Urine Opiates Screen (test code = 46227-1) NEGATIVE NEGATIVE ALL TESTS PERFORMED MANUALLY ON [employer] TOX/SEE TESTB[facility] – McKinneyUrine Barbiturates Vkxcps7524-42-91 10:14:00* Test Item Value Reference Range Interpretation Comments Urine Barbiturates Screen (test code = 082246699) NEGATIVE NEGA TIVE [facility]neyUrine Phencyclidine Baiwro0340-66-96 10:14:00* Test Item Value Reference Range Interpretation Comments Urine Phencyclidine Screen (test code = 24484-9) NEGATIVE NEGAT HENRY [facility]neyUrine Amphetamines Pfmpmk0732-22-80 10:14:00* Test Item Value Reference Range Interpretation Comments Urine Amphetamines Screen (test code = 72931-8) NEGATIVE NEGATI VE [facility]neyUrine Methamphetamines Bloucn5166-60-54 10:14:00* Test Item Value Reference Range Interpretation Comments Urine Methamphetamines Screen (test code = Urine Metha mphetamines Screen) NEGATIVE NEGATIVE [facility]neyUrine Benzodiazepines Homgck9895-74-66 10:14:00* Test Item Value Reference Range Interpretation Comments Urine Benzodiazepines Screen (test code = 07771-5) POSITIVE NEG ATIVE H This test provides only a screen. Positive results should be repeated by a confi rmatory test.[facility]aleUrine Cocaine Screen 2018-06-15 10:14:00* Test Item Value Reference Range Interpretation Comments Urine Cocaine Screen (test code = 3398-5) POSITIVE NEGATIVE H This test provides only a screen. Positive results should be repeated by a confi rmatory test.[facility]aleUrine Cannabinoids Screen 2018-06-15 10:14:00* Test Item Value Reference Range Interpretation Comments Urine Cannabinoids Screen (test code = 40085-6) POSITIVE NEGATI VE H This test provides only a screen. Positive results should be repeated by a confi rmatory test.[facility]neyUrine Methadone Screen 2018-06-15 10:14:00* Test Item Value Reference Range Interpretation Comments Urine Methadone Screen (test code = 06176-6) NEGATIVE NEGATIVE THESE RESULTS ARE FOR MEDICAL TREATMENT ONLYTHIS REPORT CONTAINS UNCONFIR MED SCREENING RESULTS*POSITIVE RESULTS WILL BE CONFIRMED BY REFERENCE LAB UPON R EQUEST CUT-OFFDRUG CLASS CONCENTRATION ng/mLAmphetamines 1000Methamphetamines 1000Cocaine Metabolite 300Opiate 300Phencyc lidine 25Cannabinoid 50Barbiturates 300Benzodiazepine 300Methadone 300[facility]neyUrine Opiates Epezxa0312-82-75 10:14:00* Test Item Value Reference Range Interpretation Comments Urine Opiates Screen (test code = 25651-3) NEGATIVE NEGATIVE ALL TESTS PERFORMED MANUALLY ON [employer] TOX/SEE TESTB[facility] – McKinneyUrine Barbiturates Nkzgdh1471-28-67 10:14:00* Test Item Value Reference Range Interpretation Comments Urine Barbiturates Screen (test code = 146621541) NEGATIVE NEGA TIVE [facility]neyUrine Phencyclidine Lbnpag1800-11-18 10:14:00* Test Item Value Reference Range Interpretation Comments Urine Phencyclidine Screen (test code = 27649-0) NEGATIVE NEGAT HENRY [facility]neyUrine Amphetamines Qsitiq7543-21-93 10:14:00* Test Item Value Reference Range Interpretation Comments Urine Amphetamines Screen (test code = 76612-1) NEGATIVE NEGATI VE [facility]neyU[facility] Methamphetamines Rjried9410-13-75 10:14:00* Test Item Value Reference Range Interpretation Comments Urine Methamphetamines Screen (test code = Urine Metha mphetamines Screen) NEGATIVE NEGATIVE [facility]neyU[facility] Benzodiazepines Zacxst4847-66-92 10:14:00* Test Item Value Reference Range Interpretation Comments Urine Benzodiazepines Screen (test code = 79787-3) POSITIVE NEG ATIVE H This test provides only a screen. Positive results should be repeated by a confi rmatory test.[facility]aleUrine Cocaine Screen 2018-06-15 10:14:00* Test Item Value Reference Range Interpretation Comments Urine Cocaine Screen (test code = 3398-5) POSITIVE NEGATIVE H This test provides only a screen. Positive results should be repeated by a confi rmatory test.[facility]aleUrine Cannabinoids Screen 2018-06-15 10:14:00* Test Item Value Reference Range Interpretation Comments Urine Cannabinoids Screen (test code = 99241-2) POSITIVE NEGATI VE H This test provides only a screen. Positive results should be repeated by a confi rmatory test.[facility]neyUrine Methadone Screen 2018-06-15 10:14:00* Test Item Value Reference Range Interpretation Comments Urine Methadone Screen (test code = 55867-6) NEGATIVE NEGATIVE THESE RESULTS ARE FOR MEDICAL TREATMENT ONLYTHIS REPORT CONTAINS UNCONFIR MED SCREENING RESULTS*POSITIVE RESULTS WILL BE CONFIRMED BY REFERENCE LAB UPON R EQUEST CUT-OFFDRUG CLASS CONCENTRATION ng/mLAmphetamines 1000Methamphetamines 1000Cocaine Metabolite 300Opiate 300Phencyc lidine 25Cannabinoid 50Barbiturates 300Benzodiazepine 300Methadone 300[facility]neyUrine Opiates Kedphf1945-57-95 10:14:00* Test Item Value Reference Range Interpretation Comments Urine Opiates Screen (test code = 63965-2) NEGATIVE NEGATIVE ALL TESTS PERFORMED MANUALLY ON [employer] TOX/SEE TESTB[facility] – McKinneyUrine Barbiturates Coaljz7489-10-53 10:14:00* Test Item Value Reference Range Interpretation Comments Urine Barbiturates Screen (test code = 610600687) NEGATIVE NEGA TIVE [facility]neyUrine Phencyclidine Lnztyk0297-48-99 10:14:00* Test Item Value Reference Range Interpretation Comments Urine Phencyclidine Screen (test code = 58268-5) NEGATIVE NEGAT HENRY [facility]neyUrine Amphetamines Xlzpln4665-99-44 10:14:00* Test Item Value Reference Range Interpretation Comments Urine Amphetamines Screen (test code = 10928-9) NEGATIVE NEGATI VE [facility]neyU[facility] Methamphetamines Prxrvf3659-60-42 10:14:00* Test Item Value Reference Range Interpretation Comments Urine Methamphetamines Screen (test code = Urine Metha mphetamines Screen) NEGATIVE NEGATIVE [facility]neyUrine Benzodiazepines Aozhqf2365-69-10 10:14:00* Test Item Value Reference Range Interpretation Comments Urine Benzodiazepines Screen (test code = 33300-3) POSITIVE NEG ATIVE H This test provides only a screen. Positive results should be repeated by a confi rmatory test.[facility]aleUrine Cocaine Screen 2018-06-15 10:14:00* Test Item Value Reference Range Interpretation Comments Urine Cocaine Screen (test code = 3398-5) POSITIVE NEGATIVE H This test provides only a screen. Positive results should be repeated by a confi rmatory test.[facility]aleUrine Cannabinoids Screen 2018-06-15 10:14:00* Test Item Value Reference Range Interpretation Comments Urine Cannabinoids Screen (test code = 35407-8) POSITIVE NEGATI VE H This test provides only a screen. Positive results should be repeated by a confi rmatory test.[facility]neyUrine Methadone Screen 2018-06-15 10:14:00* Test Item Value Reference Range Interpretation Comments Urine Methadone Screen (test code = 78306-3) NEGATIVE NEGATIVE THESE RESULTS ARE FOR MEDICAL TREATMENT ONLYTHIS REPORT CONTAINS UNCONFIR MED SCREENING RESULTS*POSITIVE RESULTS WILL BE CONFIRMED BY REFERENCE LAB UPON R EQUEST CUT-OFFDRUG CLASS CONCENTRATION ng/mLAmphetamines 1000Methamphetamines 1000Cocaine Metabolite 300Opiate 300Phencyc lidine 25Cannabinoid 50Barbiturates 300Benzodiazepine 300Methadone 300[facility] CenterUrine Arief2484-09-59 10:12:00* Test Item Value Reference Range Interpretation Comments Urine Color (test code = 5778-6) YELLOW YELLOW [facility]neyUrine Lztaihf8269-48-85 10:12:00* Test Item Value Reference Range Interpretation Comments Urine Clarity (test code = 25298-9) CLEAR CLEAR [facility]neyUrine Specific Ssivebe1047-29-49 10:12:00 * Test Item Value Reference Range Interpretation Comments Urine Specific Central (test code = 5811-5) 1.010 1.010-1.02 5 [facility]neyUrine cA6638-73-49 10:12:00* Test Item Value Reference Range Interpretation Comments Urine pH (test code = 84682-5) 6 5-7 [facility]neyU[facility] Leukocyte Eliqkkmv2873-29-01 10:12:00* Test Item Value Reference Range Interpretation Comments Urine Leukocyte Esterase (test code = 5799-2) TRACE NEGATIVE H [facility] Tdhmabt6718-07-46 10:12:00* Test Item Value Reference Range Interpretation Comments Urine Nitrite (test code = 14019-4) NEGATIVE NEGATIVE [facility]neyU[facility] Mivqlsj9706-93-84 10:12:00* Test Item Value Reference Range Interpretation Comments Urine Protein (test code = 5804-0) NEGATIVE NEGATIVE [facility]neyUrine Glucose (UA)2018-06-15 10:12:00* Test Item Value Reference Range Interpretation Comments Urine Glucose (UA) (test code = 2349-9) NEGATIVE NEGATIVE [facility]neyUrine Lhscwox2498-52-85 10:12:00* Test Item Value Reference Range Interpretation Comments Urine Ketones (test code = 38734-1) NEGATIVE NEGATIVE [facility] Ippwhlqodoju9370-75-74 10:12:00* Test Item Value Reference Range Interpretation Comments Urine Urobilinogen (test code = 73204-2) 0.2 0.2-1 [facility]neyUrine Bayxqinvh4968-42-80 10:12:00* Test Item Value Reference Range Interpretation Comments Urine Bilirubin (test code = 1978-6) NEGATIVE NEGATIVE [facility]neyUrine Gsjto3539-16-37 10:12:00* Test Item Value Reference Range Interpretation Comments Urine Blood (test code = 82045-2) NEGATIVE NEGATIVE [facility] McKinneyWhite Blood Hfuvj4527-23-60 10:11:00* Test Item Value Reference Range Interpretation Comments White Blood Count (test code = 6690-2) 4.92 4.8-10.8 [facility] McKinneyRed Blood Nxkzs6875-98-81 10:11:00* Test Item Value Reference Range Interpretation Comments Red Blood Count (test code = 789-8) 4.31 3.6-5.1 [facility] McKinneyHemoglobin2019-01-15 10:11:00* Test Item Value Reference Range Interpretation Comments Hemoglobin (test code = 51353-0) 12.7 12.0-16.0 [facility] McKinneyHematocrit2019-01-15 10:11:00* Test Item Value Reference Range Interpretation Comments Hematocrit (test code = 4544-3) 38.1 34.2-44.1 [facility] McKinneyMean Corpuscular Mdfzln4460-20-99 10:11:00* Test Item Value Reference Range Interpretation Comments Mean Corpuscular Volume (test code = 787-2) 88.4 81-99 [facility] McKinneyMean Corpuscular Cumfcpzttm1414-10-36 10:11:00* Test Item Value Reference Range Interpretation Comments Mean Corpuscular Hemoglobin (test code = 785-6) 29.5 28-32 [facility] McKinneyMean Corpuscular Hemoglobin Concent 2018-06-15 10:11:00* Test Item Value Reference Range Interpretation Comments Mean Corpuscular Hemoglobin Concent (test code = 786-4) 33.3 31-35 [facility] McKinneyRed Cell Distribution Aflej8420-21-37 10:11:00* Test Item Value Reference Range Interpretation Comments Red Cell Distribution Width (test code = 16874-8) 13.5 11.7 -14.4 [facility] McKinneyPlatelet Ewcfe5488-10-23 10:11:00* Test Item Value Reference Range Interpretation Comments Platelet Count (test code = 777-3) 297 140-360 [facility] McKinneyNeutrophils (%) (Auto)2018-06-15 10:11:00 * Test Item Value Reference Range Interpretation Comments Neutrophils (%) (Auto) (test code = 76318-0) 60.6 38.7-80.0 [facility] McKinneyLymphocytes (%) (Auto)2018-06-15 10:11:00 * Test Item Value Reference Range Interpretation Comments Lymphocytes (%) (Auto) (test code = 736-9) 28.9 18.0-39.1 [facility] McKinneyMonocytes (%) (Auto)2018-06-15 10:11:00* Test Item Value Reference Range Interpretation Comments Monocytes (%) (Auto) (test code = 5905-5) 6.7 4.4-11.3 [facility] McKinneyEosinophils (%) (Auto)2018-06-15 10:11:00 * Test Item Value Reference Range Interpretation Comments Eosinophils (%) (Auto) (test code = 713-8) 1.6 0.0-6.0 [facility] McKinneyBasophils (%) (Auto)2018-06-15 10:11:00* Test Item Value Reference Range Interpretation Comments Basophils (%) (Auto) (test code = 706-2) 1.0 0.0-1.0 [facility] McKinneyIM GRANULOCYTES %2018-06-15 10:11:00* Test Item Value Reference Range Interpretation Comments IM GRANULOCYTES % (test code = IM GRANULOCYTES %) 1.2 0.0- 1.0 H [facility] McKinneyNeutrophils # (Auto)2018-06-15 10:11:00* Test Item Value Reference Range Interpretation Comments Neutrophils # (Auto) (test code = 751-8) 3.0 2.1-6.9 [facility] McKinneyLymphocytes # (Auto)2018-06-15 10:11:00* Test Item Value Reference Range Interpretation Comments Lymphocytes # (Auto) (test code = 41067-3) 1.4 1.0-3.2 [facility] McKinneyMonocytes # (Auto)2018-06-15 10:11:00* Test Item Value Reference Range Interpretation Comments Monocytes # (Auto) (test code = 742-7) 0.3 0.2-0.8 [facility] McKinneyEosinophils # (Auto)2018-06-15 10:11:00* Test Item Value Reference Range Interpretation Comments Eosinophils # (Auto) (test code = 711-2) 0.1 0.0-0.4 [facility] McKinneyBasophils # (Auto)2018-06-15 10:11:00* Test Item Value Reference Range Interpretation Comments Basophils # (Auto) (test code = 704-7) 0.1 0.0-0.1 [facility] McKinneyAbsolute Immature Granulocyte (auto 2018-06-15 10:11:00* Test Item Value Reference Range Interpretation Comments Absolute Immature Granulocyte (auto (alexa t code = Absolute Immature Granulocyte (auto) 0.06 0-0.1 [facility] McKinneyUrine Vgvnrgf5826-83-36 10:44:00* Test Item Value Reference Range Interpretation Comments Urine Culture (test code = 630-4) Organism: ESCHERICHIA COLI [facility] McKinneyUrine Kujctec2051-07-16 10:44:00* Test Item Value Reference Range Interpretation Comments Urine Culture (test code = 630-4) Organism: ESCHERICHIA COLI [facility] McKinneyUrine Rqyvjxj0018-51-44 10:44:00* Test Item Value Reference Range Interpretation Comments Urine Culture (test code = 630-4) Organism: ESCHERICHIA COLI [facility] McKinneyUrine Ysnmtrw3167-53-88 10:44:00* Test Item Value Reference Range Interpretation Comments Urine Culture (test code = 630-4) Organism: ESCHERICHIA COLI [facility] McKinneyCT ABDOMEN/PELVIS TD4043-89-37 11:29:00 [facility] [address] [place] [id number] Patient Name: ANGELA ESPINOSA MR #: [id number] : 1975 Age/Sex: 42/F Req #: [id number] Adm Physician: Ordered by: EROS SIDHU MD Report #: [id number] Location: ER Room/Bed: Procedure: [id number] CT/CT ABDOMEN/PELVIS WO Exam Date: 06/03/18 Exam [...] 1136 COPY TO: EROS SIDHU MD Sodium Giefz2611-31-12 10:03:00* Test Item Value Reference Range Interpretation Comments Sodium Level (test code = 2951-2) 134 136-145 L [facility] McKinneyPotassium Xzamf3492-03-67 10:03:00* Test Item Value Reference Range Interpretation Comments Potassium Level (test code = 2823-3) 3.7 3.5-5.1 [facility] McKinneyChloride Tmlzq7803-05-69 10:03:00* Test Item Value Reference Range Interpretation Comments Chloride Level (test code = 2075-0) 103 98-107 [facility] McKinneyCarbon Dioxide Hktke3854-53-44 10:03:00* Test Item Value Reference Range Interpretation Comments Carbon Dioxide Level (test code = 2028-9) 24 22-29 [facility] McKinneyAnion Ycr6725-13-08 10:03:00* Test Item Value Reference Range Interpretation Comments Anion Gap (test code = 59856-2) 10.7 8-16 [facility] McKinneyBlood Urea Ghcsgyyx5495-27-07 10:03:00* Test Item Value Reference Range Interpretation Comments Blood Urea Nitrogen (test code = 3094-0) 10 7-26 [facility] McKinneyCreatinine2019-01-03 10:03:00* Test Item Value Reference Range Interpretation Comments Creatinine (test code = 2160-0) 0.82 0.57-1.11 [facility] McKinneyBUN/Creatinine Fkysl4243-95-14 10:03:00* Test Item Value Reference Range Interpretation Comments BUN/Creatinine Ratio (test code = 3097-3) 12 6-25 [facility] McKinneyEstimat Glomerular Filtration Rate 2018-06-03 10:03:00* Test Item Value Reference Range Interpretation Comments Estimat Glomerular Filtration Rate (test code = 857188526) > 60 >60 Ranges were taken from the National Kidney Disease Education Program and the [facility] Kidney Foundation literature.Reference ranges:60 or greater: Kpfknt98-00 ( for 3 consecutive months): Chronic kidney disease 15 or less: Kidney failureCHI Methodist Mansfield Medical CenterGlucose Ywmgt9135-17-86 10:03:00* Test Item Value Reference Range Interpretation Comments Glucose Level (test code = TQW3710) 96 74-118 [facility] McKinneyCalcium Hyawd8658-29-89 10:03:00* Test Item Value Reference Range Interpretation Comments Calcium Level (test code = 13796-7) 8.9 8.4-10.2 [facility] McKinneyMagnesium Lzfhb0839-61-97 10:03:00* Test Item Value Reference Range Interpretation Comments Magnesium Level (test code = 56017-5) 1.9 1.3-2.1 [facility] McKinneyTotal Fwvstjqmp4631-01-73 10:03:00* Test Item Value Reference Range Interpretation Comments Total Bilirubin (test code = 1975-2) 0.5 0.2-1.2 [facility] McKinneyAspartate Amino Transf (AST/SGOT) 2018-06-03 10:03:00* Test Item Value Reference Range Interpretation Comments Aspartate Amino Transf (AST/SGOT) (test code = Aspartate Amino Transf (AST/SGOT)) 14 5-34 [facility] McKinneyAlanine Aminotransferase (ALT/SGPT) 2018-06-03 10:03:00* Test Item Value Reference Range Interpretation Comments Alanine Aminotransferase (ALT/SGPT) (test code = 1742-6) 19 0-55 [facility] McKinneyTotal Soaoddh3240-34-15 10:03:00* Test Item Value Reference Range Interpretation Comments Total Protein (test code = 2885-2) 6.3 6.5-8.1 L [facility] McKinneyAlbumin2019-01-03 10:03:00* Test Item Value Reference Range Interpretation Comments Albumin (test code = 1751-7) 3.5 3.5-5.0 [facility] McKinneyGlobulin2019-01-03 10:03:00* Test Item Value Reference Range Interpretation Comments Globulin (test code = 56932-5) 2.8 2.3-3.5 [facility] McKinneyAlbumin/Globulin Ncips6058-00-27 10:03:00 * Test Item Value Reference Range Interpretation Comments Albumin/Globulin Ratio (test code = 1759-0) 1.3 0.8-2.0 [facility] McKinneyAlkaline Nkmrquqmmpx7767-58-07 10:03:00* Test Item Value Reference Range Interpretation Comments Alkaline Phosphatase (test code = 6768-6) 84 40-150 [facility] McKinneyMagnesium Yplri9782-18-23 10:03:00* Test Item Value Reference Range Interpretation Comments Magnesium Level (test code = 91809-1) 1.9 1.3-2.1 [facility] Wyxqr9120-69-69 10:03:00* Test Item Value Reference Range Interpretation Comments Magnesium Level (test code = 02539-7) 1.9 1.3-2.1 [facility] McKinneyMagnesium Bwyhn6590-01-29 10:03:00* Test Item Value Reference Range Interpretation Comments Magnesium Level (test code = 05980-9) 1.9 1.3-2.1 [facility] McKinneyMagnesium Fgsvc7369-92-02 10:03:00* Test Item Value Reference Range Interpretation Comments Magnesium Level (test code = 29644-7) 1.9 1.3-2.1 [facility] McKinneyWhite Blood Zetms8333-33-29 09:37:00* Test Item Value Reference Range Interpretation Comments White Blood Count (test code = 6690-2) 5.42 4.8-10.8 [facility] McKinneyRed Blood Euyjp6369-67-63 09:37:00* Test Item Value Reference Range Interpretation Comments Red Blood Count (test code = 789-8) 4.21 3.6-5.1 [facility] McKinneyHemoglobin2019-01-03 09:37:00* Test Item Value Reference Range Interpretation Comments Hemoglobin (test code = 33677-6) 12.5 12.0-16.0 [facility] McKinneyHematocrit2019-01-03 09:37:00* Test Item Value Reference Range Interpretation Comments Hematocrit (test code = 4544-3) 36.6 34.2-44.1 [facility] McKinneyMean Corpuscular Xyhymn6541-80-37 09:37:00* Test Item Value Reference Range Interpretation Comments Mean Corpuscular Volume (test code = 787-2) 86.9 81-99 [facility] McKinneyMean Corpuscular Bwkqmhunwa5648-71-55 09:37:00* Test Item Value Reference Range Interpretation Comments Mean Corpuscular Hemoglobin (test code = 785-6) 29.7 28-32 [facility]neyMean Corpuscular Hemoglobin Concent 2018-06-03 09:37:00* Test Item Value Reference Range Interpretation Comments Mean Corpuscular Hemoglobin Concent (test code = 786-4) 34.2 31-35 [facility] McKinneyRed Cell Distribution Byjxu8302-60-77 09:37:00* Test Item Value Reference Range Interpretation Comments Red Cell Distribution Width (test code = 11612-8) 13.3 11.7 -14.4 [facility] McKinneyPlatelet Vepdc7836-15-96 09:37:00* Test Item Value Reference Range Interpretation Comments Platelet Count (test code = 777-3) 237 140-360 [facility] McKinneyNeutrophils (%) (Auto)2018-06-03 09:37:00 * Test Item Value Reference Range Interpretation Comments Neutrophils (%) (Auto) (test code = 91110-7) 65.3 38.7-80.0 [facility] McKinneyLymphocytes (%) (Auto)2018-06-03 09:37:00 * Test Item Value Reference Range Interpretation Comments Lymphocytes (%) (Auto) (test code = 736-9) 26.9 18.0-39.1 [facility]neyMonocytes (%) (Auto)2018-06-03 09:37:00* Test Item Value Reference Range Interpretation Comments Monocytes (%) (Auto) (test code = 5905-5) 5.2 4.4-11.3 [facility]neyEosinophils (%) (Auto)2018-06-03 09:37:00 * Test Item Value Reference Range Interpretation Comments Eosinophils (%) (Auto) (test code = 713-8) 1.5 0.0-6.0 [facility]neyBasophils (%) (Auto)2018-06-03 09:37:00* Test Item Value Reference Range Interpretation Comments Basophils (%) (Auto) (test code = 706-2) 0.7 0.0-1.0 [facility]neyIM GRANULOCYTES %2018-06-03 09:37:00* Test Item Value Reference Range Interpretation Comments IM GRANULOCYTES % (test code = IM GRANULOCYTES %) 0.4 0.0- 1.0 [facility] McKinneyNeutrophils # (Auto)2018-06-03 09:37:00* Test Item Value Reference Range Interpretation Comments Neutrophils # (Auto) (test code = 751-8) 3.5 2.1-6.9 [facility] McKinneyLymphocytes # (Auto)2018-06-03 09:37:00* Test Item Value Reference Range Interpretation Comments Lymphocytes # (Auto) (test code = 13256-7) 1.5 1.0-3.2 [facility]neyMonocytes # (Auto)2018-06-03 09:37:00* Test Item Value Reference Range Interpretation Comments Monocytes # (Auto) (test code = 742-7) 0.3 0.2-0.8 [facility]neyEosinophils # (Auto)2018-06-03 09:37:00* Test Item Value Reference Range Interpretation Comments Eosinophils # (Auto) (test code = 711-2) 0.1 0.0-0.4 [facility]neyBasophils # (Auto)2018-06-03 09:37:00* Test Item Value Reference Range Interpretation Comments Basophils # (Auto) (test code = 704-7) 0.0 0.0-0.1 [facility] McKinneyAbsolute Immature Granulocyte (auto 2018-06-03 09:37:00* Test Item Value Reference Range Interpretation Comments Absolute Immature Granulocyte (auto (alexa t code = Absolute Immature Granulocyte (auto) 0.02 0-0.1 [facility] McKinneyUrine [id number] 09:22:00* Test Item Value Reference Range Interpretation Comments Urine WBC (test code = 5821-4) 0-5 0-5 [facility] McKinneyUrine LHC7610-06-15 09:22:00* Test Item Value Reference Range Interpretation Comments Urine RBC (test code = 13459-3) NONE 0-5 [facility]neyUrine Xqfhovyl4429-82-51 09:22:00* Test Item Value Reference Range Interpretation Comments Urine Bacteria (test code = 09538-4) MODERATE NONE H [facility] McKinneyUrine Epithelial Ozywk2599-38-31 09:22:00 * Test Item Value Reference Range Interpretation Comments Urine Epithelial Cells (test code = 54077-8) RARE NONE [facility] McKinneyUrine Juupz2567-07-36 09:11:00* Test Item Value Reference Range Interpretation Comments Urine Color (test code = 5778-6) YELLOW YELLOW [facility]neyUrine Jcijexu4838-42-96 09:11:00* Test Item Value Reference Range Interpretation Comments Urine Clarity (test code = 74202-3) SL CLOUDY CLEAR [facility] McKinneyUrine Specific Ijjqofg3876-94-86 09:11:00 * Test Item Value Reference Range Interpretation Comments Urine Specific Central (test code = 5811-5) 1.010 1.010-1.02 5 [facility] McKinneyUrine [id number] 09:11:00* Test Item Value Reference Range Interpretation Comments Urine pH (test code = 91810-8) 6.5 5-7 [facility]neyUrine Leukocyte Dgzwqnla0469-84-32 09:11:00* Test Item Value Reference Range Interpretation Comments Urine Leukocyte Esterase (test code = 5799-2) TRACE NEGATIVE H [facility]neyUrine Reogtek2561-69-40 09:11:00* Test Item Value Reference Range Interpretation Comments Urine Nitrite (test code = 04762-9) NEGATIVE NEGATIVE [facility]neyUrine Mhdiaiy5652-56-69 09:11:00* Test Item Value Reference Range Interpretation Comments Urine Protein (test code = 5804-0) NEGATIVE NEGATIVE [facility]neyUrine Glucose (UA)2018-06-03 09:11:00* Test Item Value Reference Range Interpretation Comments Urine Glucose (UA) (test code = 2349-9) NEGATIVE NEGATIVE [facility]neyU[facility] Jzudpgc1492-42-94 09:11:00* Test Item Value Reference Range Interpretation Comments Urine Ketones (test code = 98559-9) NEGATIVE NEGATIVE [facility]neyUrine Nlzccioufuiw7522-35-36 09:11:00* Test Item Value Reference Range Interpretation Comments Urine Urobilinogen (test code = 64269-5) 0.2 0.2-1 [facility]neyU[facility] Fpjtzzarx4623-87-59 09:11:00* Test Item Value Reference Range Interpretation Comments Urine Bilirubin (test code = 1978-6) NEGATIVE NEGATIVE [facility]neyU[facility] Nmbww4910-94-77 09:11:00* Test Item Value Reference Range Interpretation Comments Urine Blood (test code = 01241-5) NEGATIVE NEGATIVE [facility]neyUrine Wkiq0787-49-64 09:11:00* Test Item Value Reference Range Interpretation Comments Urine Test (test code = 2106-3) NEGATIVE NEGATIVE [facility]neyU[facility] Vchw5877-80-67 09:11:00* Test Item Value Reference Range Interpretation Comments Urine Test (test code = 2106-3) NEGATIVE NEGATIVE [facility]neyUrine Sgez7285-48-97 09:11:00* Test Item Value Reference Range Interpretation Comments Urine Test (test code = 2106-3) NEGATIVE NEGATIVE [facility]neyUrine Kafu9482-29-72 09:11:00* Test Item Value Reference Range Interpretation Comments Urine Test (test code = 2106-3) NEGATIVE NEGATIVE [facility]neyU[facility] Uapz3588-09-60 09:11:00* Test Item Value Reference Range Interpretation Comments Urine Test (test code = 2106-3) NEGATIVE NEGATIVE [facility]neyU[facility] Ldae7317-20-49 09:11:00* Test Item Value Reference Range Interpretation Comments Urine Test (test code = 2106-3) NEGATIVE NEGATIVE [facility]neyU[facility] Ytqg8536-97-80 09:11:00* Test Item Value Reference Range Interpretation Comments Urine Test (test code = 2106-3) NEGATIVE NEGATIVE [facility]neyUrine Opiates Iyeiki9906-54-48 11:04:00* Test Item Value Reference Range Interpretation Comments Urine Opiates Screen (test code = 87722-5) NEGATIVE NEGATIVE ALL TESTS PERFORMED MANUALLY ON [employer] TOX/SEE TESTB[facility] – McKinneyUrine Barbiturates Bpddir1926-52-59 11:04:00* Test Item Value Reference Range Interpretation Comments Urine Barbiturates Screen (test code = 555666586) NEGATIVE NEGA TIVE [facility]neyUrine Phencyclidine Oghxko6291-35-95 11:04:00* Test Item Value Reference Range Interpretation Comments Urine Phencyclidine Screen (test code = 12449-8) NEGATIVE NEGAT HENRY [facility]neyUrine Amphetamines Tvqfcp4056-04-49 11:04:00* Test Item Value Reference Range Interpretation Comments Urine Amphetamines Screen (test code = 40538-8) NEGATIVE NEGATI VE [facility]neyU[facility] Methamphetamines Vaakip4601-61-99 11:04:00* Test Item Value Reference Range Interpretation Comments Urine Methamphetamines Screen (test code = Urine Metha mphetamines Screen) NEGATIVE NEGATIVE [facility]neyUrine Benzodiazepines Lwxsin0867-80-29 11:04:00* Test Item Value Reference Range Interpretation Comments Urine Benzodiazepines Screen (test code = 90087-8) POSITIVE NEG ATIVE H This test provides only a screen. Positive results should be repeated by a confi rmatory test.[facility]neyUrine Cocaine Screen 2018-04-28 11:04:00* Test Item Value Reference Range Interpretation Comments Urine Cocaine Screen (test code = 3398-5) NEGATIVE NEGATIVE [facility]neyUrine Cannabinoids Swhqet6516-24-34 11:04:00* Test Item Value Reference Range Interpretation Comments Urine Cannabinoids Screen (test code = 62244-6) POSITIVE NEGATI VE H This test provides only a screen. Positive results should be repeated by a confi rmatory test.[facility]neyUrine Methadone Screen 2018-04-28 11:04:00* Test Item Value Reference Range Interpretation Comments Urine Methadone Screen (test code = 25962-3) NEGATIVE NEGATIVE THESE RESULTS ARE FOR MEDICAL TREATMENT ONLYTHIS REPORT CONTAINS UNCONFIR MED SCREENING RESULTS*POSITIVE RESULTS WILL BE CONFIRMED BY REFERENCE LAB UPON R EQUEST CUT-OFFDRUG CLASS CONCENTRATION ng/mLAmphetamines 1000Methamphetamines 1000Cocaine Metabolite 300Opiate 300Phencyc lidine 25Cannabinoid 50Barbiturates 300Benzodiazepine 300Methadone 300[facility]neyUrine Opiates Vuyvbj3721-76-35 11:04:00* Test Item Value Reference Range Interpretation Comments Urine Opiates Screen (test code = 33944-7) NEGATIVE NEGATIVE ALL TESTS PERFORMED MANUALLY ON [employer] TOX/SEE TESTB[facility] & [facility] – McKinneyUrine Barbiturates Apfcbn5947-29-59 11:04:00* Test Item Value Reference Range Interpretation Comments Urine Barbiturates Screen (test code = 038935689) NEGATIVE NEGA TIVE [facility]neyU[facility] Phencyclidine Duygqn9174-56-67 11:04:00* Test Item Value Reference Range Interpretation Comments Urine Phencyclidine Screen (test code = 89853-2) NEGATIVE NEGAT HENRY [facility]neyUrine Amphetamines Tqjfvy9622-72-71 11:04:00* Test Item Value Reference Range Interpretation Comments Urine Amphetamines Screen (test code = 96001-0) NEGATIVE NEGATI VE [facility]neyUrine Methamphetamines Vvlkni6906-95-64 11:04:00* Test Item Value Reference Range Interpretation Comments Urine Methamphetamines Screen (test code = Urine Metha mphetamines Screen) NEGATIVE NEGATIVE [facility]neyUrine Benzodiazepines Lkhehc7001-15-74 11:04:00* Test Item Value Reference Range Interpretation Comments Urine Benzodiazepines Screen (test code = 45626-3) POSITIVE NEG ATIVE H This test provides only a screen. Positive results should be repeated by a confi rmatory test.[facility]neyUrine Cocaine Screen 2018-04-28 11:04:00* Test Item Value Reference Range Interpretation Comments Urine Cocaine Screen (test code = 3398-5) NEGATIVE NEGATIVE [facility]neyUrine Cannabinoids Xxhbzo0811-37-84 11:04:00* Test Item Value Reference Range Interpretation Comments Urine Cannabinoids Screen (test code = 63216-1) POSITIVE NEGATI VE H This test provides only a screen. Positive results should be repeated by a confi rmatory test.[facility]neyUrine Methadone Screen 2018-04-28 11:04:00* Test Item Value Reference Range Interpretation Comments Urine Methadone Screen (test code = 38580-3) NEGATIVE NEGATIVE THESE RESULTS ARE FOR MEDICAL TREATMENT ONLYTHIS REPORT CONTAINS UNCONFIR MED SCREENING RESULTS*POSITIVE RESULTS WILL BE CONFIRMED BY REFERENCE LAB UPON R EQUEST CUT-OFFDRUG CLASS CONCENTRATION ng/mLAmphetamines 1000Methamphetamines 1000Cocaine Metabolite 300Opiate 300Phencyc lidine 25Cannabinoid 50Barbiturates 300Benzodiazepine 300Methadone 300[facility] Campusodium Ytrkv3264-77-49 09:47:00* Test Item Value Reference Range Interpretation Comments Sodium Level (test code = 2951-2) 134 136-145 L [facility] McKinneyPotassium Mnabl2645-65-29 09:47:00* Test Item Value Reference Range Interpretation Comments Potassium Level (test code = 2823-3) 3.9 3.5-5.1 [facility] McKinneyChloride Fuzdc9784-70-60 09:47:00* Test Item Value Reference Range Interpretation Comments Chloride Level (test code = 2075-0) 103 98-107 [facility] McKinneyCarbon Dioxide Ojetx4399-95-07 09:47:00* Test Item Value Reference Range Interpretation Comments Carbon Dioxide Level (test code = 2028-9) 23 22-29 [facility] McKinneyAnion Idi9274-31-97 09:47:00* Test Item Value Reference Range Interpretation Comments Anion Gap (test code = 82093-7) 11.9 8-16 [facility] McKinneyBlood Urea Ubwquubx8047-17-61 09:47:00* Test Item Value Reference Range Interpretation Comments Blood Urea Nitrogen (test code = 3094-0) 11 7-26 [facility] McKinneyCreatinine2018-11-28 09:47:00* Test Item Value Reference Range Interpretation Comments Creatinine (test code = 2160-0) 0.84 0.57-1.11 [facility] McKinneyBUN/Creatinine Xlrfl2590-23-61 09:47:00* Test Item Value Reference Range Interpretation Comments BUN/Creatinine Ratio (test code = 3097-3) 13 - [facility] McKinneyEstimat Glomerular Filtration Rate 2018-04-28 09:47:00* Test Item Value Reference Range Interpretation Comments Estimat Glomerular Filtration Rate (test code = 258015169) > 60 >60 Ranges were taken from the National Kidney Disease Education Program and the [facility] literature.Reference ranges:60 or greater: Ksjqsi70-47 ( for 3 consecutive months): Chronic kidney disease 15 or less: Kidney failureBaylor Scott & White Medical Center – McKinneyGlucose Duiyv4361-77-39 09:47:00* Test Item Value Reference Range Interpretation Comments Glucose Level (test code = RBJ8440) 121 74-118 H [facility] McKinneyCalcium Gnvxx2837-33-47 09:47:00* Test Item Value Reference Range Interpretation Comments Calcium Level (test code = 73239-7) 9.1 8.4-10.2 [facility] McKinneyTotal Jatjguthg2582-97-02 09:47:00* Test Item Value Reference Range Interpretation Comments Total Bilirubin (test code = 1975-2) 0.3 0.2-1.2 [facility] McKinneyAspartate Amino Transf (AST/SGOT) 2018-04-28 09:47:00* Test Item Value Reference Range Interpretation Comments Aspartate Amino Transf (AST/SGOT) (test code = Aspartate Amino Transf (AST/SGOT)) 19 5-34 [facility] McKinneyAlanine Aminotransferase (ALT/SGPT) 2018-04-28 09:47:00* Test Item Value Reference Range Interpretation Comments Alanine Aminotransferase (ALT/SGPT) (test code = 1742-6) 27 0-55 [facility] McKinneyTotal Fdtndyc5641-10-40 09:47:00* Test Item Value Reference Range Interpretation Comments Total Protein (test code = 2885-2) 6.9 6.5-8.1 [facility] McKinneyAlbumin2018-11-28 09:47:00* Test Item Value Reference Range Interpretation Comments Albumin (test code = 1751-7) 3.6 3.5-5.0 [facility] McKinneyGlobulin2018-11-28 09:47:00* Test Item Value Reference Range Interpretation Comments Globulin (test code = 25868-0) 3.3 2.3-3.5 [facility] McKinneyAlbumin/Globulin Jnajs2231-89-28 09:47:00 * Test Item Value Reference Range Interpretation Comments Albumin/Globulin Ratio (test code = 1759-0) 1.1 0.8-2.0 [facility] McKinneyAlkaline Iowqldwzrcw3638-62-74 09:47:00* Test Item Value Reference Range Interpretation Comments Alkaline Phosphatase (test code = 6768-6) 108 40-150 [facility] McKinneyLipase2018-11-28 09:47:00* Test Item Value Reference Range Interpretation Comments Lipase (test code = 3040-3) [facility] McKinneyLipase2018-11-28 09:47:00* Test Item Value Reference Range Interpretation Comments Lipase (test code = 3040-3) [facility] McKinneyUrine NHK1451-20-83 09:07:00* Test Item Value Reference Range Interpretation Comments Urine WBC (test code = 5821-4) 0-5 0-5 [facility] McKinneyUrine [id number] 09:07:00* Test Item Value Reference Range Interpretation Comments Urine RBC (test code = 11354-3) 0-5 0-5 [facility] McKinneyUrine Ewgqaghx0505-82-17 09:07:00* Test Item Value Reference Range Interpretation Comments Urine Bacteria (test code = 58572-2) MODERATE NONE H [facility] McKinneyUrine Epithelial Smleb1873-49-66 09:07:00 * Test Item Value Reference Range Interpretation Comments Urine Epithelial Cells (test code = 33276-2) MODERATE NONE [facility] McKinneyUrine Ymmts7934-56-29 09:03:00* Test Item Value Reference Range Interpretation Comments Urine Color (test code = 5778-6) YELLOW YELLOW [facility] McKinneyUrine Fbqfqfi3848-87-34 09:03:00* Test Item Value Reference Range Interpretation Comments Urine Clarity (test code = 74820-6) HAZY CLEAR [facility] McKinneyUrine Specific Dkcsjtz9565-37-87 09:03:00 * Test Item Value Reference Range Interpretation Comments Urine Specific Central (test code = 5811-5) 1.005 1.010-1.02 5 L [facility] McKinneyUrine [id number] 09:03:00* Test Item Value Reference Range Interpretation Comments Urine pH (test code = 09456-1) 6 5-7 [facility] McKinneyUrine Leukocyte Qijtjoor9328-75-01 09:03:00* Test Item Value Reference Range Interpretation Comments Urine Leukocyte Esterase (test code = 5799-2) NEGATIVE NEGATIVE [facility] McKinneyUrine Qodvghu4251-46-34 09:03:00* Test Item Value Reference Range Interpretation Comments Urine Nitrite (test code = 15855-6) NEGATIVE NEGATIVE [facility] McKinneyUrine Bzqxbky5074-01-38 09:03:00* Test Item Value Reference Range Interpretation Comments Urine Protein (test code = 5804-0) NEGATIVE NEGATIVE [facility] McKinneyUrine Glucose (UA)2018-04-28 09:03:00* Test Item Value Reference Range Interpretation Comments Urine Glucose (UA) (test code = 2349-9) NEGATIVE NEGATIVE [facility] McKinneyUrine Hhzlgtd0380-19-71 09:03:00* Test Item Value Reference Range Interpretation Comments Urine Ketones (test code = 02649-1) NEGATIVE NEGATIVE [facility] McKinneyUrine Veeyrqavscko0894-66-86 09:03:00* Test Item Value Reference Range Interpretation Comments Urine Urobilinogen (test code = 66004-4) 0.2 0.2-1 [facility] McKinneyUrine Mluasdace0225-36-83 09:03:00* Test Item Value Reference Range Interpretation Comments Urine Bilirubin (test code = 1978-6) NEGATIVE NEGATIVE [facility] McKinneyUrine Wpcwi5609-06-77 09:03:00* Test Item Value Reference Range Interpretation Comments Urine Blood (test code = 00602-7) NEGATIVE NEGATIVE [facility] McKinneyWhite Blood Hmrfj5608-60-05 09:00:00* Test Item Value Reference Range Interpretation Comments White Blood Count (test code = 6690-2) 5.83 4.8-10.8 [facility] McKinneyRed Blood Qwgih5465-91-22 09:00:00* Test Item Value Reference Range Interpretation Comments Red Blood Count (test code = 789-8) 4.39 3.6-5.1 [facility] McKinneyHemoglobin2018-11-28 09:00:00* Test Item Value Reference Range Interpretation Comments Hemoglobin (test code = 35501-2) 13.1 12.0-16.0 [facility] McKinneyHematocrit2018-11-28 09:00:00* Test Item Value Reference Range Interpretation Comments Hematocrit (test code = 4544-3) 38.6 34.2-44.1 [facility] McKinneyMean Corpuscular Wyqzwa8144-59-46 09:00:00* Test Item Value Reference Range Interpretation Comments Mean Corpuscular Volume (test code = 787-2) 87.9 81-99 [facility] McKinneyMean Corpuscular Mogopjqrzl9415-28-94 09:00:00* Test Item Value Reference Range Interpretation Comments Mean Corpuscular Hemoglobin (test code = 785-6) 29.8 28-32 [facility] McKinneyMean Corpuscular Hemoglobin Concent 2018-04-28 09:00:00* Test Item Value Reference Range Interpretation Comments Mean Corpuscular Hemoglobin Concent (test code = 786-4) 33.9 31-35 [facility] McKinneyRed Cell Distribution Gsntz6424-86-20 09:00:00* Test Item Value Reference Range Interpretation Comments Red Cell Distribution Width (test code = 29351-6) 13.8 11.7 -14.4 [facility] McKinneyPlatelet Kgbqp9058-28-02 09:00:00* Test Item Value Reference Range Interpretation Comments Platelet Count (test code = 777-3) 249 140-360 [facility] McKinneyNeutrophils (%) (Auto)2018-04-28 09:00:00 * Test Item Value Reference Range Interpretation Comments Neutrophils (%) (Auto) (test code = 42058-5) 63.7 38.7-80.0 [facility] McKinneyLymphocytes (%) (Auto)2018-04-28 09:00:00 * Test Item Value Reference Range Interpretation Comments Lymphocytes (%) (Auto) (test code = 736-9) 28.5 18.0-39.1 [facility]neyMonocytes (%) (Auto)2018-04-28 09:00:00* Test Item Value Reference Range Interpretation Comments Monocytes (%) (Auto) (test code = 5905-5) 4.6 4.4-11.3 [facility]neyEosinophils (%) (Auto)2018-04-28 09:00:00 * Test Item Value Reference Range Interpretation Comments Eosinophils (%) (Auto) (test code = 713-8) 2.2 0.0-6.0 [facility] McKinneyBasophils (%) (Auto)2018-04-28 09:00:00* Test Item Value Reference Range Interpretation Comments Basophils (%) (Auto) (test code = 706-2) 0.7 0.0-1.0 [facility] McKinneyIM GRANULOCYTES %2018-04-28 09:00:00* Test Item Value Reference Range Interpretation Comments IM GRANULOCYTES % (test code = IM GRANULOCYTES %) 0.3 0.0- 1.0 [facility] McKinneyNeutrophils # (Auto)2018-04-28 09:00:00* Test Item Value Reference Range Interpretation Comments Neutrophils # (Auto) (test code = 751-8) 3.7 2.1-6.9 [facility] McKinneyLymphocytes # (Auto)2018-04-28 09:00:00* Test Item Value Reference Range Interpretation Comments Lymphocytes # (Auto) (test code = 21573-3) 1.7 1.0-3.2 [facility] McKinneyMonocytes # (Auto)2018-04-28 09:00:00* Test Item Value Reference Range Interpretation Comments Monocytes # (Auto) (test code = 742-7) 0.3 0.2-0.8 [facility]neyEosinophils # (Auto)2018-04-28 09:00:00* Test Item Value Reference Range Interpretation Comments Eosinophils # (Auto) (test code = 711-2) 0.1 0.0-0.4 [facility]neyBasophils # (Auto)2018-04-28 09:00:00* Test Item Value Reference Range Interpretation Comments Basophils # (Auto) (test code = 704-7) 0.0 0.0-0.1 [facility] McKinneyAbsolute Immature Granulocyte (auto 2018-04-28 09:00:00* Test Item Value Reference Range Interpretation Comments Absolute Immature Granulocyte (auto (alexa t code = Absolute Immature Granulocyte (auto) 0.02 0-0.1 [facility]neyCT [facility]PELVIS [id number] 10:58:00 [facility] [address] [place] [address] Patient Name: ANGELA ESPINOSA MR #: [id number] : 1975 Age/Sex: 42/F Req #: [id number] Adm Physician: Ordered by: DANIAL ÁLVAREZ MD Report #: [id number] Location: ER Room/Bed: Procedure: [id number] CT/CT ABDOMEN/PELVIS W Exam Date: 03/28/18 Exam [...] 1:06 AM Dictated By: DIALLO GARCIA MD 05 Transcribed By: LULU on 03/28/181105 COPY TO: DANIAL ÁLVAREZ MD Amylase Bzaaf5619-25-15 09:26:00* Test Item Value Reference Range Interpretation Comments Amylase Level (test code = 1798-8) 101 25-125 [facility] McKinneyAmylase Nobgr3936-11-66 09:26:00* Test Item Value Reference Range Interpretation Comments Amylase Level (test code = 1798-8) 101 25-125 [facility] Chorionic Gonadotropin, [facility] 2018-03-28 09:15:00* Test Item Value Reference Range Interpretation Comments Human Chorionic Gonadotropin, Qual (test code = 2118-8) NEGATIVE NEGATIVE [facility] Chorionic Gonadotropin, [facility] 2018-03-28 09:15:00* Test Item Value Reference Range Interpretation Comments Human Chorionic Gonadotropin, Qual (test code = 2118-8) NEGATIVE NEGATIVE [facility] Chorionic Gonadotropin, [facility] 2018-03-28 09:15:00* Test Item Value Reference Range Interpretation Comments Human Chorionic Gonadotropin, Qual (test code = 2118-8) NEGATIVE NEGATIVE [facility] Chorionic Gonadotropin, [facility] 2018-03-28 09:15:00* Test Item Value Reference Range Interpretation Comments Human Chorionic Gonadotropin, Qual (test code = 2118-8) NEGATIVE NEGATIVE [facility] Chorionic Gonadotropin, [facility] 2018-03-28 09:15:00* Test Item Value Reference Range Interpretation Comments Human Chorionic Gonadotropin, Qual (test code = 2118-8) NEGATIVE NEGATIVE [facility] Chorionic Gonadotropin, Qual 2018-03-28 09:15:00* Test Item Value Reference Range Interpretation Comments Human Chorionic Gonadotropin, Qual (test code = 2118-8) NEGATIVE NEGATIVE [facility] Chorionic Gonadotropin, Qual 2018-03-28 09:15:00* Test Item Value Reference Range Interpretation Comments Human Chorionic Gonadotropin, Qual (test code = 8-8) NEGATIVE NEGATIVE [facility] CHEST T0356-64-88 11:17:00 [facility] [address] [address] Patient Name: ANGELA ESPINOSA MR #: [id number] : 1975 Age/Sex: 42/F Req #: [id number] Adm Physician: Ordered by: SEEMA TINAJERO MD Report #: [id number] Location: [facility]/Bed: Procedure: [id number] CT/CT CHEST W Exam Date : 03/04/18 [...] COPY TO: SEEMA TINAJERO MD CT ABDOMEN/PELVIS [id number] 11:17:00 [address] [address] Patient Name: ANGELA ESPINOSA MR #: [id number] : 1975 Age/Sex: 42/F Req #: [id number] Adm Physician: Ordered by: SEEMA TINAJERO MD Report #: [id number] Location: ER Room/Bed: Procedure: [id number] CT/CT ABDOMEN/PELVIS W Exam Date: 03/04/18 Exam [...] 1131 COPY TO: SEEMA TINAJERO MD Sodium Bttdc1375-44-17 09:49:00* Test Item Value Reference Range Interpretation Comments Sodium Level (test code = 2951-2) 138 136-145 [facility] McKinneyPotassium Bxqhz6077-76-38 09:49:00* Test Item Value Reference Range Interpretation Comments Potassium Level (test code = 2823-3) 4.3 3.5-5.1 [facility] McKinneyChloride Utvvl7498-79-30 09:49:00* Test Item Value Reference Range Interpretation Comments Chloride Level (test code = 2075-0) 105 98-107 [facility] McKinneyCarbon Dioxide Jlcav2906-72-16 09:49:00* Test Item Value Reference Range Interpretation Comments Carbon Dioxide Level (test code = 2028-9) 22 22-29 [facility] McKinneyAnion Xdl0881-50-65 09:49:00* Test Item Value Reference Range Interpretation Comments Anion Gap (test code = 49612-7) 15.3 8-16 [facility] McKinneyBlood Urea Kzcbkuqh0015-08-60 09:49:00* Test Item Value Reference Range Interpretation Comments Blood Urea Nitrogen (test code = 3094-0) 16 7-26 [facility] McKinneyCreatinine2018-10-04 09:49:00* Test Item Value Reference Range Interpretation Comments Creatinine (test code = 2160-0) 0.99 0.57-1.11 [facility] McKinneyBUN/Creatinine Yteju2402-24-67 09:49:00* Test Item Value Reference Range Interpretation Comments BUN/Creatinine Ratio (test code = 3097-3) 16 6-25 [facility] McKinneyEstimat Glomerular Filtration Rate 2018-03-04 09:49:00* Test Item Value Reference Range Interpretation Comments Estimat Glomerular Filtration Rate (test code = 515472444) 60- >60 Ranges were taken from the National Kidney Disease Education Program and the [facility] Kidney Foundation literature.Reference ranges:60 or greater: Xgmziw00-05 ( for 3 consecutive months): Chronic kidney disease 15 or less: Kidney failureBaylor Scott & White Medical Center – McKinneyGlucose Jpujk7809-59-26 09:49:00* Test Item Value Reference Range Interpretation Comments Glucose Level (test code = WZU0866) 122 74-118 H [facility] McKinneyCalcium Pltbl7468-89-74 09:49:00* Test Item Value Reference Range Interpretation Comments Calcium Level (test code = 38564-2) 9.3 8.4-10.2 [facility] McKinneyTotal Epjhcgzlp2103-75-68 09:49:00* Test Item Value Reference Range Interpretation Comments Total Bilirubin (test code = 1975-2) 0.2 0.2-1.2 [facility] McKinneyAspartate Amino Transf (AST/SGOT) 2018-03-04 09:49:00* Test Item Value Reference Range Interpretation Comments Aspartate Amino Transf (AST/SGOT) (test code = Aspartate Amino Transf (AST/SGOT)) 20 5-34 [facility] McKinneyAlanine Aminotransferase (ALT/SGPT) 2018-03-04 09:49:00* Test Item Value Reference Range Interpretation Comments Alanine Aminotransferase (ALT/SGPT) (test code = 1742-6) 24 0-55 [facility] McKinneyTotal Onbatus0025-09-16 09:49:00* Test Item Value Reference Range Interpretation Comments Total Protein (test code = 2885-2) 6.7 6.5-8.1 [facility] McKinneyAlbumin2018-10-04 09:49:00* Test Item Value Reference Range Interpretation Comments Albumin (test code = 1751-7) 3.5 3.5-5.0 [facility] McKinneyGlobulin2018-10-04 09:49:00* Test Item Value Reference Range Interpretation Comments Globulin (test code = 48038-5) 3.2 2.3-3.5 [facility] McKinneyAlbumin/Globulin Lslnt8890-65-80 09:49:00 * Test Item Value Reference Range Interpretation Comments Albumin/Globulin Ratio (test code = 1759-0) 1.1 0.8-2.0 [facility] McKinneyAlkaline Tvlivarxplb6538-43-78 09:49:00* Test Item Value Reference Range Interpretation Comments Alkaline Phosphatase (test code = 6768-6) 107 40-150 [facility] McKinneyLipase2018-10-04 09:49:00* Test Item Value Reference Range Interpretation Comments Lipase (test code = 3040-3) 32 8-78 [facility] McKinneyUrine GBI4289-46-94 09:36:00* Test Item Value Reference Range Interpretation Comments Urine WBC (test code = 5821-4) NONE 0-5 [facility] McKinneyUrine WPZ9014-91-46 09:36:00* Test Item Value Reference Range Interpretation Comments Urine RBC (test code = 97319-6) 11-20 0-5 H [facility] McKinneyUrine Ufkoviqf2131-24-46 09:36:00* Test Item Value Reference Range Interpretation Comments Urine Bacteria (test code = 64464-3) FEW NONE [facility] McKinneyUrine Epithelial Qorpr2626-53-96 09:36:00 * Test Item Value Reference Range Interpretation Comments Urine Epithelial Cells (test code = 32698-4) FEW NONE [facility] McKinneyUrine Mrnfb6189-38-51 09:27:00* Test Item Value Reference Range Interpretation Comments Urine Color (test code = 5778-6) YELLOW YELLOW [facility] McKinneyUrine Ytqkkgy2078-56-47 09:27:00* Test Item Value Reference Range Interpretation Comments Urine Clarity (test code = 16950-2) SL CLOUDY CLEAR [facility] McKinneyUrine Specific Iplrupd7440-49-41 09:27:00 * Test Item Value Reference Range Interpretation Comments Urine Specific Central (test code = 5811-5) 1.010 1.010-1.02 5 [facility] McKinneyUrine dN8183-76-00 09:27:00* Test Item Value Reference Range Interpretation Comments Urine pH (test code = 07131-7) 6 5-7 [facility] McKinneyUrine Leukocyte Gywxwpii0403-45-25 09:27:00* Test Item Value Reference Range Interpretation Comments Urine Leukocyte Esterase (test code = 5799-2) NEGATIVE NEGATIVE [facility] McKinneyUrine Gpaakcl0322-89-15 09:27:00* Test Item Value Reference Range Interpretation Comments Urine Nitrite (test code = 94145-6) NEGATIVE NEGATIVE [facility] McKinneyUrine Xubwaup3810-25-57 09:27:00* Test Item Value Reference Range Interpretation Comments Urine Protein (test code = 5804-0) NEGATIVE NEGATIVE [facility] McKinneyUrine Glucose (UA)2018-03-04 09:27:00* Test Item Value Reference Range Interpretation Comments Urine Glucose (UA) (test code = 2349-9) NEGATIVE NEGATIVE [facility] McKinneyUrine Zrekhku8130-00-79 09:27:00* Test Item Value Reference Range Interpretation Comments Urine Ketones (test code = 89922-5) NEGATIVE NEGATIVE [facility] McKinneyUrine Cburynkzdzsn7872-75-92 09:27:00* Test Item Value Reference Range Interpretation Comments Urine Urobilinogen (test code = 73359-4) 0.2 0.2-1 [facility] McKinneyUrine Xavumccti5796-77-05 09:27:00* Test Item Value Reference Range Interpretation Comments Urine Bilirubin (test code = 1978-6) NEGATIVE NEGATIVE [facility] McKinneyUrine Lnmji7779-56-05 09:27:00* Test Item Value Reference Range Interpretation Comments Urine Blood (test code = 71287-4) 3+ NEGATIVE H [facility] McKinneyWhite Blood Ilbsa6613-62-98 09:23:00* Test Item Value Reference Range Interpretation Comments White Blood Count (test code = 6690-2) 6.21 4.8-10.8 [facility] McKinneyRed Blood Vazkh2463-09-82 09:23:00* Test Item Value Reference Range Interpretation Comments Red Blood Count (test code = 789-8) 4.20 3.6-5.1 [facility] McKinneyHemoglobin2018-10-04 09:23:00* Test Item Value Reference Range Interpretation Comments Hemoglobin (test code = 78413-7) 12.5 12.0-16.0 [facility] McKinneyHematocrit2018-10-04 09:23:00* Test Item Value Reference Range Interpretation Comments Hematocrit (test code = 4544-3) 36.8 34.2-44.1 [facility] McKinneyMean Corpuscular Fgwmkh0488-72-50 09:23:00* Test Item Value Reference Range Interpretation Comments Mean Corpuscular Volume (test code = 787-2) 87.6 81-99 [facility] McKinneyMean Corpuscular Qgrsxtmnsd9266-54-51 09:23:00* Test Item Value Reference Range Interpretation Comments Mean Corpuscular Hemoglobin (test code = 785-6) 29.8 28-32 [facility] McKinneyMean Corpuscular Hemoglobin Concent 2018-03-04 09:23:00* Test Item Value Reference Range Interpretation Comments Mean Corpuscular Hemoglobin Concent (test code = 786-4) 34.0 31-35 [facility] McKinneyRed Cell Distribution Nxctc5100-67-72 09:23:00* Test Item Value Reference Range Interpretation Comments Red Cell Distribution Width (test code = 51292-2) 13.8 11.7 -14.4 [facility] McKinneyPlatelet Xrwru7656-53-76 09:23:00* Test Item Value Reference Range Interpretation Comments Platelet Count (test code = 777-3) 264 140-360 [facility] McKinneyNeutrophils (%) (Auto)2018-03-04 09:23:00 * Test Item Value Reference Range Interpretation Comments Neutrophils (%) (Auto) (test code = 62420-4) 70.5 38.7-80.0 [facility] McKinneyLymphocytes (%) (Auto)2018-03-04 09:23:00 * Test Item Value Reference Range Interpretation Comments Lymphocytes (%) (Auto) (test code = 736-9) 20.3 18.0-39.1 [facility] McKinneyMonocytes (%) (Auto)2018-03-04 09:23:00* Test Item Value Reference Range Interpretation Comments Monocytes (%) (Auto) (test code = 5905-5) 6.0 4.4-11.3 [facility] McKinneyEosinophils (%) (Auto)2018-03-04 09:23:00 * Test Item Value Reference Range Interpretation Comments Eosinophils (%) (Auto) (test code = 713-8) 2.3 0.0-6.0 [facility] McKinneyBasophils (%) (Auto)2018-03-04 09:23:00* Test Item Value Reference Range Interpretation Comments Basophils (%) (Auto) (test code = 706-2) 0.6 0.0-1.0 [facility] McKinneyIM GRANULOCYTES %2018-03-04 09:23:00* Test Item Value Reference Range Interpretation Comments IM GRANULOCYTES % (test code = IM GRANULOCYTES %) 0.3 0.0- 1.0 [facility] McKinneyNeutrophils # (Auto)2018-03-04 09:23:00* Test Item Value Reference Range Interpretation Comments Neutrophils # (Auto) (test code = 751-8) 4.4 2.1-6.9 [facility] McKinneyLymphocytes # (Auto)2018-03-04 09:23:00* Test Item Value Reference Range Interpretation Comments Lymphocytes # (Auto) (test code = 94279-7) 1.3 1.0-3.2 [facility] McKinneyMonocytes # (Auto)2018-03-04 09:23:00* Test Item Value Reference Range Interpretation Comments Monocytes # (Auto) (test code = 742-7) 0.4 0.2-0.8 [facility] McKinneyEosinophils # (Auto)2018-03-04 09:23:00* Test Item Value Reference Range Interpretation Comments Eosinophils # (Auto) (test code = 711-2) 0.1 0.0-0.4 [facility] McKinneyBasophils # (Auto)2018-03-04 09:23:00* Test Item Value Reference Range Interpretation Comments Basophils # (Auto) (test code = 704-7) 0.0 0.0-0.1 [facility] McKinneyAbsolute Immature Granulocyte (auto 2018-03-04 09:23:00* Test Item Value Reference Range Interpretation Comments Absolute Immature Granulocyte (auto (alexa t code = Absolute Immature Granulocyte (auto) 0.02 0-0.1 [facility] Mqwoben8247-74-13 10:44:00* Test Item Value Reference Range Interpretation Comments Bedside Glucose (test code = 07062-9) 106 70-120 Meter ID: [id number] Glucose 2018-02-09 10:44:00* Test Item Value Reference Range Interpretation Comments Bedside Glucose (test code = 23687-3) 106 70-120 Meter ID: [id number] [facility] Glucose 2018-02-09 10:44:00* Test Item Value Reference Range Interpretation Comments Bedside Glucose (test code = 62533-2) 106 70-120 Meter ID: [id number] [facility] Glucose 2018-02-09 10:44:00* Test Item Value Reference Range Interpretation Comments Bedside Glucose (test code = 54645-9) 106 70-120 Meter ID: [id number] [facility] Glucose 2018-02-09 10:44:00* Test Item Value Reference Range Interpretation Comments Bedside Glucose (test code = 53623-4) 106 70-120 Meter ID: [id number] [facility]ann [facility] Glucose 2018-02-09 10:44:00* Test Item Value Reference Range Interpretation Comments Bedside Glucose (test code = 35008-4) 106 70-120 Meter ID: [id number] [facility]ann [facility] Glucose 2018-02-09 10:44:00* Test Item Value Reference Range Interpretation Comments Bedside Glucose (test code = 29252-7) 106 70-120 Meter ID: [id number] [facility] Glucose 2018-02-09 10:44:00* Test Item Value Reference Range Interpretation Comments Bedside Glucose (test code = 85391-3) 106 70-120 Meter ID: [id number] Hermann [facility]ress Hospital Glucose 2018-02-09 10:44:00* Test Item Value Reference Range Interpretation Comments Bedside Glucose (test code = 58170-6) 106 70-120 Meter ID: [id number] Scott & White Medical Center – McKinneyUrine HHG1782-50-15 10:06:00* Test Item Value Reference Range Interpretation Comments Urine WBC (test code = 5821-4) NONE 0-5 [facility] McKinneyUrine BXN6571-29-66 10:06:00* Test Item Value Reference Range Interpretation Comments Urine RBC (test code = 93636-1) NONE 0-5 [facility] McKinneyUrine Ymipenqj7366-13-16 10:06:00* Test Item Value Reference Range Interpretation Comments Urine Bacteria (test code = 53423-7) FEW NONE [facility] McKinneyUrine Epithelial Ebfvd5496-93-54 10:06:00 * Test Item Value Reference Range Interpretation Comments Urine Epithelial Cells (test code = 78546-5) MODERATE NONE [facility] McKinneyUrine Wwyt0825-61-94 09:31:00* Test Item Value Reference Range Interpretation Comments Urine Test (test code = 2106-3) NEGATIVE NEGATIVE [facility] McKinneyUrine Ftif0502-03-97 09:31:00* Test Item Value Reference Range Interpretation Comments Urine Test (test code = 2106-3) NEGATIVE NEGATIVE [facility] McKinneyUrine Eimu9716-76-68 09:31:00* Test Item Value Reference Range Interpretation Comments Urine Test (test code = 2106-3) NEGATIVE NEGATIVE [facility] McKinneyUrine Yytwj1694-22-35 09:30:00* Test Item Value Reference Range Interpretation Comments Urine Color (test code = 5778-6) GEO YELLOW H [facility] McKinneyUrine Nwzgztt2254-05-48 09:30:00* Test Item Value Reference Range Interpretation Comments Urine Clarity (test code = 17525-9) SL CLOUDY CLEAR [facility] McKinneyUrine Specific Mtfwyml9600-38-04 09:30:00 * Test Item Value Reference Range Interpretation Comments Urine Specific Central (test code = 5811-5) 1.030 1.010-1.02 5 H [facility] McKinneyUrine yO5278-57-86 09:30:00* Test Item Value Reference Range Interpretation Comments Urine pH (test code = 18939-1) 6 5-7 [facility] McKinneyUrine Leukocyte Rukmqyin9987-17-26 09:30:00* Test Item Value Reference Range Interpretation Comments Urine Leukocyte Esterase (test code = 5799-2) NEGATIVE NEGATIVE [facility] Iihpvdk7108-33-50 09:30:00* Test Item Value Reference Range Interpretation Comments Urine Nitrite (test code = 97070-5) NEGATIVE NEGATIVE [facility] McKinneyUrine Nsvrbem3630-78-39 09:30:00* Test Item Value Reference Range Interpretation Comments Urine Protein (test code = 5804-0) TRACE NEGATIVE H [facility] McKinneyUrine Glucose (UA)2018-02-09 09:30:00* Test Item Value Reference Range Interpretation Comments Urine Glucose (UA) (test code = 2349-9) NEGATIVE NEGATIVE [facility] McKinneyUrine Slpeddi4393-69-42 09:30:00* Test Item Value Reference Range Interpretation Comments Urine Ketones (test code = 04558-1) NEGATIVE NEGATIVE [facility] McKinneyUrine Odfdmypnhulf2733-10-35 09:30:00* Test Item Value Reference Range Interpretation Comments Urine Urobilinogen (test code = 25587-8) 1 0.2-1 [facility] McKinneyUrine Htonveprv1289-42-14 09:30:00* Test Item Value Reference Range Interpretation Comments Urine Bilirubin (test code = 1978-6) 1+ NEGATIVE H [facility] McKinneyUrine Ovkwf2905-63-66 09:30:00* Test Item Value Reference Range Interpretation Comments Urine Blood (test code = 47940-8) NEGATIVE NEGATIVE [facility] G7115-10-32 10:06:00 [facility] [address] [address] Patient Name: ANGELA ESPINOSA MR #: [id number] OB: 1975 Age/Sex: 42/F Req #: [id number] Adm Physic domo: Ordered by: SEEMA TINAJERO MD Report #: [id number] Location: ER Ro om/Bed: Procedure: [id number] CT/CT ABDOMEN/PELVIS W Exam Date: 01/21/18 Exam Time: 919 STAT US: Signed PROCEDURE: CT ABDOMEN AND PELVIS WITH CONTRAST TECHNIQUE: The abdomen and pelvis were scanned utilizing a multidetector helical scanner from the diaphragm to the lesser trochanter after the IV administration of 100 cc of Isovue 370 and the oral administration of water. Coronal and sagit francisco multiplanar reformations were obtained. Dose reduction parameters were ut ilized. DLP: 868.77 mGy-cm COMPARISON: [facility], CT, CT ABDOMEN/PELVIS W, 12/04/2017, 11:21. [...] TO: SEEMA DELAROSA MD CT LUMBAR SPINE F7561-85-17 09:59:[address] [address] Patient Name: ANGELA ESPINOSA MR #: [id number] : 1975 Age/Sex: 42/F Req #: [id number] Adm Physician: Ordered by: SEEMA TINAJERO MD Report #: [id number] Location: [facility] om/Bed: Procedure: [id number] CT/CT LUMBAR SPINE W Ex am Date: 01/21/18 Exam Time: 0920 REPORT STATUS : Signed EXAMINATION: CT of [...] Comments Creatine Kinase MB (test code = 91007-2) 0.40 0-5.0 [facility] McKinneyTroponin P4448-38-67 08:56:00* Test Item Value Reference Range Interpretation Comments Troponin I (test code = WQO3561) -0.001 0-0.300 [facility] McKinneyCreatine Kinase VX5419-48-56 08:56:00* Test Item Value Reference Range Interpretation Comments Creatine Kinase MB (test code = 98710-7) 0.40 0-5.0 [place] 68325018-08-23 08:56:00* Test Item Value Reference Range Interpretation Comments Troponin I (test code = BFJ6416) -0.001 0-0.300 [facility] McKinneyCreatine Kinase LU1561-13-47 08:56:00* Test Item Value Reference Range Interpretation Comments Creatine Kinase MB (test code = 70749-4) 0.40 0-5.0 [place] 68325018-08-23 08:56:00* Test Item Value Reference Range Interpretation Comments Troponin I (test code = SHY3859) -0.001 0-0.300 [facility] McKinneyCreatine Kinase HW9494-99-48 08:56:00* Test Item Value Reference Range Interpretation Comments Creatine Kinase MB (test code = 61839-2) 0.40 0-5.0 [place] 68325018-08-23 08:56:00* Test Item Value Reference Range Interpretation Comments Troponin I (test code = GNJ3613) < 0.001 0-0.300 [facility] McKinneyCreatine Kinase XH5958-67-02 08:56:00* Test Item Value Reference Range Interpretation Comments Creatine Kinase MB (test code = 34999-8) 0.40 0-5.0 [place] 68325018-08-23 08:56:00* Test Item Value Reference Range Interpretation Comments Troponin I (test code = OQV6506) < 0.001 0-0.300 [facility] McKinneyCreatine Kinase JT8468-11-44 08:56:00* Test Item Value Reference Range Interpretation Comments Creatine Kinase MB (test code = 77935-9) 0.40 0-5.0 [place] 68325018-08-23 08:56:00* Test Item Value Reference Range Interpretation Comments Troponin I (test code = RKE5750) < 0.001 0-0.300 [facility] McKinneyCreatine Kinase QZ0026-47-38 08:56:00* Test Item Value Reference Range Interpretation Comments Creatine Kinase MB (test code = 65151-8) 0.40 0-5.0 [place] 68325018-08-23 08:56:00* Test Item Value Reference Range Interpretation Comments Troponin I (test code = EIX5197) < 0.001 0-0.300 [facility] McKinneyCreatine Kinase PD9299-71-15 08:56:00* Test Item Value Reference Range Interpretation Comments Creatine Kinase MB (test code = 60825-7) 0.40 0-5.0 [place] 68325018-08-23 08:56:00* Test Item Value Reference Range Interpretation Comments Troponin I (test code = ZMF1234) < 0.001 0-0.300 [facility] McKinneyCreatine Kinase JH4432-19-72 08:56:00* Test Item Value Reference Range Interpretation Comments Creatine Kinase MB (test code = 13824-3) 0.40 0-5.0 [place] 68325018-08-23 08:56:00* Test Item Value Reference Range Interpretation Comments Troponin I (test code = [id number]) < 0.001 0-0.300 [facility]neyCreat[facility] Kinase [id number] 08:56:00* Test Item Value Reference Range Interpretation Comments Creatine Kinase MB (test code = 71963-1) 0.40 0-5.0 [place] [id number] 08:56:00* Test Item Value Reference Range Interpretation Comments Troponin I (test code = [id number]) < 0.001 0-0.300 [facility]neyUrine Opiates Mccbgi5666-05-75 08:52:00* Test Item Value Reference Range Interpretation Comments Urine Opiates Screen (test code = 54750-9) NEGATIVE NEGATIVE [facility]neyUrine Barbiturates Uqvuva7811-98-30 08:52:00* Test Item Value Reference Range Interpretation Comments Urine Barbiturates Screen (test code = 664094543) NEGATIVE NEGA TIVE [facility]neyUrine Phencyclidine Zgrbuz8002-78-60 08:52:00* Test Item Value Reference Range Interpretation Comments Urine Phencyclidine Screen (test code = 51322-1) NEGATIVE NEGAT HENRY [facility]neyUrine Amphetamines Luxxkq6796-34-02 08:52:00* Test Item Value Reference Range Interpretation Comments Urine Amphetamines Screen (test code = 68110-4) NEGATIVE NEGATI VE [facility]neyUrine Methamphetamines Boupmf1736-92-78 08:52:00* Test Item Value Reference Range Interpretation Comments Urine Methamphetamines Screen (test code = Urine Metha mphetamines Screen) NEGATIVE NEGATIVE [facility]neyUrine Benzodiazepines Twrwxx4610-13-24 08:52:00* Test Item Value Reference Range Interpretation Comments Urine Benzodiazepines Screen (test code = 59923-5) POSITIVE NEG ATIVE H This test provides only a screen. Positive results should be repeated by a confi rmatory test.[facility]neyUrine Cocaine Screen 2018-01-21 08:52:00* Test Item Value Reference Range Interpretation Comments Urine Cocaine Screen (test code = 3398-5) NEGATIVE NEGATIVE [facility] Cannabinoids Afrspr8369-76-89 08:52:00* Test Item Value Reference Range Interpretation Comments Urine Cannabinoids Screen (test code = 11565-0) POSITIVE NEGATI VE H This test provides only a screen. Positive results should be repeated by a confi rmatory test.[facility]neyUrine Opiates Screen 2018-01-21 08:52:00* Test Item Value Reference Range Interpretation Comments Urine Opiates Screen (test code = 47493-1) NEGATIVE NEGATIVE [facility]neyU[facility] Barbiturates Kgnjkw6893-13-88 08:52:00* Test Item Value Reference Range Interpretation Comments Urine Barbiturates Screen (test code = 823578592) NEGATIVE NEGA TIVE [facility]neyUrine Phencyclidine Hysaxv4361-71-41 08:52:00* Test Item Value Reference Range Interpretation Comments Urine Phencyclidine Screen (test code = 43098-6) NEGATIVE NEGAT HENRY [facility]neyUrine Amphetamines Qryptc5179-14-62 08:52:00* Test Item Value Reference Range Interpretation Comments Urine Amphetamines Screen (test code = 59581-9) NEGATIVE NEGATI VE [facility]neyU[facility] Methamphetamines Vwjijn2666-78-40 08:52:00* Test Item Value Reference Range Interpretation Comments Urine Methamphetamines Screen (test code = Urine Metha mphetamines Screen) NEGATIVE NEGATIVE [facility]neyU[facility] Benzodiazepines Zqydzp0679-56-52 08:52:00* Test Item Value Reference Range Interpretation Comments Urine Benzodiazepines Screen (test code = 21194-9) POSITIVE NEG ATIVE H This test provides only a screen. Positive results should be repeated by a confi rmatory test.[facility]neyUrine Cocaine Screen 2018-01-21 08:52:00* Test Item Value Reference Range Interpretation Comments Urine Cocaine Screen (test code = 3398-5) NEGATIVE NEGATIVE [facility] Cannabinoids Uilswz7059-18-87 08:52:00* Test Item Value Reference Range Interpretation Comments Urine Cannabinoids Screen (test code = 47701-0) POSITIVE NEGATI VE H This test provides only a screen. Positive results should be repeated by a confi rmatory test.[facility]neyUrine Opiates Screen 2018-01-21 08:52:00* Test Item Value Reference Range Interpretation Comments Urine Opiates Screen (test code = 36332-9) NEGATIVE NEGATIVE [facility]neyUrine Barbiturates Qypsvy2559-52-02 08:52:00* Test Item Value Reference Range Interpretation Comments Urine Barbiturates Screen (test code = 402642753) NEGATIVE NEGA TIVE [facility]neyUrine Phencyclidine Vcwntf4184-23-02 08:52:00* Test Item Value Reference Range Interpretation Comments Urine Phencyclidine Screen (test code = 39915-1) NEGATIVE NEGAT HENRY [facility]neyUrine Amphetamines Kfwvwz1654-64-44 08:52:00* Test Item Value Reference Range Interpretation Comments Urine Amphetamines Screen (test code = 20680-5) NEGATIVE NEGATI VE [facility]neyU[facility] Methamphetamines Mxwblt2804-41-70 08:52:00* Test Item Value Reference Range Interpretation Comments Urine Methamphetamines Screen (test code = Urine Metha mphetamines Screen) NEGATIVE NEGATIVE [facility]neyUrine Benzodiazepines Dbwfcg4291-36-08 08:52:00* Test Item Value Reference Range Interpretation Comments Urine Benzodiazepines Screen (test code = 15753-3) POSITIVE NEG ATIVE H This test provides only a screen. Positive results should be repeated by a confi rmatory test.[facility]neyUrine Cocaine Screen 2018-01-21 08:52:00* Test Item Value Reference Range Interpretation Comments Urine Cocaine Screen (test code = 3398-5) NEGATIVE NEGATIVE [facility]neyUrine Cannabinoids Uzrtiv7446-30-37 08:52:00* Test Item Value Reference Range Interpretation Comments Urine Cannabinoids Screen (test code = 67639-1) POSITIVE NEGATI VE H This test provides only a screen. Positive results should be repeated by a confi rmatory test.[facility] Campusodium Prwbc3643-56-50 08:50:00* Test Item Value Reference Range Interpretation Comments Sodium Level (test code = 2951-2) 139 136-145 [facility]neyPotassium Apmzj0448-29-01 08:50:00* Test Item Value Reference Range Interpretation Comments Potassium Level (test code = 2823-3) 3.4 3.5-5.1 L [facility] McKinneyChloride Yygrr5559-37-37 08:50:00* Test Item Value Reference Range Interpretation Comments Chloride Level (test code = 2075-0) 107 98-107 [facility] McKinneyCarbon Dioxide Ogmtd3683-58-85 08:50:00* Test Item Value Reference Range Interpretation Comments Carbon Dioxide Level (test code = 2028-9) 23 22-29 [facility] McKinneyAnion Rao9160-89-19 08:50:00* Test Item Value Reference Range Interpretation Comments Anion Gap (test code = 48076-3) 12.4 8-16 [facility] McKinneyBlood Urea Ngyszuur2874-16-41 08:50:00* Test Item Value Reference Range Interpretation Comments Blood Urea Nitrogen (test code = 3094-0) 7 7-26 [facility]neyCreatinine2018-08-23 08:50:00* Test Item Value Reference Range Interpretation Comments Creatinine (test code = 2160-0) 0.83 0.57-1.11 [facility] McKinneyBUN/Creatinine Bzczw5036-14-64 08:50:00* Test Item Value Reference Range Interpretation Comments BUN/Creatinine Ratio (test code = 3097-3) 8 6-25 [facility] McKinneyEstimat Glomerular Filtration Rate 2018-01-21 08:50:00* Test Item Value Reference Range Interpretation Comments Estimat Glomerular Filtration Rate (test code = 24157-4) 60- >60 Ranges were taken from the National Kidney Disease Education Program and the [facility] [place] Kid[facility] Foundation literature.Reference ranges:60 or greater: Euzexx95-20 ( for 3 consecutive months): Chronic kidney disease 15 or less: Kidney failureCHI Methodist Mansfield Medical CenterGlucose Yffri4418-56-50 08:50:00* Test Item Value Reference Range Interpretation Comments Glucose Level (test code = MEW5785) 115 74-118 [facility] McKinneyCalcium Ljtfn8217-29-03 08:50:00* Test Item Value Reference Range Interpretation Comments Calcium Level (test code = 98775-4) 8.9 8.4-10.2 [facility] McKinneyTotal Sdmmnwcrr5839-04-42 08:50:00* Test Item Value Reference Range Interpretation Comments Total Bilirubin (test code = 1975-2) 0.4 0.2-1.2 [facility] McKinneyAspartate Amino Transf (AST/SGOT) 2018-01-21 08:50:00* Test Item Value Reference Range Interpretation Comments Aspartate Amino Transf (AST/SGOT) (test code = Aspartate Amino Transf (AST/SGOT)) 13 5-34 [facility] McKinneyAlanine Aminotransferase (ALT/SGPT) 2018-01-21 08:50:00* Test Item Value Reference Range Interpretation Comments Alanine Aminotransferase (ALT/SGPT) (test code = 1742-6) 15 0-55 [facility] McKinneyTotal Itbhtmv9592-22-33 08:50:00* Test Item Value Reference Range Interpretation Comments Total Protein (test code = 2885-2) 6.5 6.5-8.1 [facility] McKinneyAlbumin2018-08-23 08:50:00* Test Item Value Reference Range Interpretation Comments Albumin (test code = 1751-7) 3.5 3.5-5.0 [facility] McKinneyGlobulin2018-08-23 08:50:00* Test Item Value Reference Range Interpretation Comments Globulin (test code = 36923-8) 3.0 2.3-3.5 [facility] McKinneyAlbumin/Globulin Aohob4715-58-87 08:50:00 * Test Item Value Reference Range Interpretation Comments Albumin/Globulin Ratio (test code = 1759-0) 1.2 0.8-2.0 [facility] McKinneyAlkaline Qqrjqnduouv3654-45-66 08:50:00* Test Item Value Reference Range Interpretation Comments Alkaline Phosphatase (test code = 6768-6) 90 40-150 [facility] McKinneyCreatine Djcqsw3112-70-91 08:50:00* Test Item Value Reference Range Interpretation Comments Creatine Kinase (test code = 2157-6) 75 29-168 [facility] McKinneyAmylase Rqink8251-48-44 08:50:00* Test Item Value Reference Range Interpretation Comments Amylase Level (test code = 1798-8) 96 25-125 [facility] McKinneyLipase2018-08-23 08:50:00* Test Item Value Reference Range Interpretation Comments Lipase (test code = 3040-3) 28 8-78 [facility] Campusodium Ebhbo7574-65-77 08:50:00* Test Item Value Reference Range Interpretation Comments Sodium Level (test code = 2951-2) 139 136-145 [facility]neyPotassium Fdndr5817-09-65 08:50:00* Test Item Value Reference Range Interpretation Comments Potassium Level (test code = 2823-3) 3.4 3.5-5.1 L [facility] McKinneyChloride Xrgqr0578-94-76 08:50:00* Test Item Value Reference Range Interpretation Comments Chloride Level (test code = 2075-0) 107 98-107 [facility] McKinneyCarbon Dioxide Iqudd1929-25-98 08:50:00* Test Item Value Reference Range Interpretation Comments Carbon Dioxide Level (test code = 2028-9) 23 -29 [facility] McKinneyAnion Ghh9009-77-81 08:50:00* Test Item Value Reference Range Interpretation Comments Anion Gap (test code = 01839-5) 12.4 8-16 [facility] McKinneyBlood Urea Vtagzxnd8496-92-40 08:50:00* Test Item Value Reference Range Interpretation Comments Blood Urea Nitrogen (test code = 3094-0) 7 7-26 [facility] McKinneyCreatinine2018-08-23 08:50:00* Test Item Value Reference Range Interpretation Comments Creatinine (test code = 2160-0) 0.83 0.57-1.11 [facility]neyBUN/Creatinine Orsob9500-47-93 08:50:00* Test Item Value Reference Range Interpretation Comments BUN/Creatinine Ratio (test code = 3097-3) 8 6- [facility] McKinneyEstimat Glomerular Filtration Rate 2018-01-21 08:50:00* Test Item Value Reference Range Interpretation Comments Estimat Glomerular Filtration Rate (test code = 86608-8) 60- >60 Ranges were taken from the National Kidney Disease Education Program and the [facility] [place] Kidney Foundation literature.Reference ranges:60 or greater: Wycqez44-63 ( for 3 consecutive months): Chronic kidney disease 15 or less: Kidney failureBaylor Scott & [facility] Medical Center – McKinneyGlucose Uckxj6228-99-19 08:50:00* Test Item Value Reference Range Interpretation Comments Glucose Level (test code = VCX5534) 115 74-118 [facility] McKinneyCalcium Zyonh4604-51-21 08:50:00* Test Item Value Reference Range Interpretation Comments Calcium Level (test code = 17555-8) 8.9 8.4-10.2 [facility] McKinneyTotal Hrnnwopsr3599-02-27 08:50:00* Test Item Value Reference Range Interpretation Comments Total Bilirubin (test code = 1975-2) 0.4 0.2-1.2 [facility] McKinneyAspartate Amino Transf (AST/SGOT) 2018-01-21 08:50:00* Test Item Value Reference Range Interpretation Comments Aspartate Amino Transf (AST/SGOT) (test code = Aspartate Amino Transf (AST/SGOT)) 13 5-34 [facility] McKinneyAlanine Aminotransferase (ALT/SGPT) 2018-01-21 08:50:00* Test Item Value Reference Range Interpretation Comments Alanine Aminotransferase (ALT/SGPT) (test code = 1742-6) 15 0-55 [facility] McKinneyTotal Wpalyto1841-71-85 08:50:00* Test Item Value Reference Range Interpretation Comments Total Protein (test code = 2885-2) 6.5 6.5-8.1 [facility] McKinneyAlbumin2018-08-23 08:50:00* Test Item Value Reference Range Interpretation Comments Albumin (test code = 1751-7) 3.5 3.5-5.0 [facility] McKinneyGlobulin2018-08-23 08:50:00* Test Item Value Reference Range Interpretation Comments Globulin (test code = 24810-0) 3.0 2.3-3.5 [facility] McKinneyAlbumin/Globulin Cekst1603-78-21 08:50:00 * Test Item Value Reference Range Interpretation Comments Albumin/Globulin Ratio (test code = 1759-0) 1.2 0.8-2.0 [facility] McKinneyAlkaline Pvpwhmozmym7229-93-35 08:50:00* Test Item Value Reference Range Interpretation Comments Alkaline Phosphatase (test code = 6768-6) 90 40-150 [facility] McKinneyCreatine Hezidv0551-80-67 08:50:00* Test Item Value Reference Range Interpretation Comments Creatine Kinase (test code = 2157-6) 75 29-168 [facility] McKinneyAmylase Mcwxm7527-44-56 08:50:00* Test Item Value Reference Range Interpretation Comments Amylase Level (test code = 1798-8) 96 25-125 [facility] McKinneyLipase2018-08-23 08:50:00* Test Item Value Reference Range Interpretation Comments Lipase (test code = 3040-3) 28 8-78 [facility] McKinneyCreatine Jgegpn0052-94-92 08:50:00* Test Item Value Reference Range Interpretation Comments Creatine Kinase (test code = 2157-6) 75 29-168 [facility] McKinneyAmylase Untik9344-51-59 08:50:00* Test Item Value Reference Range Interpretation Comments Amylase Level (test code = 1798-8) 96 25-125 [facility] McKinneyCreatine Gigpft2202-69-13 08:50:00* Test Item Value Reference Range Interpretation Comments Creatine Kinase (test code = 2157-6) 75 29-168 [facility] McKinneyCreatine Wwywqk7247-92-87 08:50:00* Test Item Value Reference Range Interpretation Comments Creatine Kinase (test code = 2157-6) 75 29-168 [facility] McKinneyCreatine Vdybtg4569-78-29 08:50:00* Test Item Value Reference Range Interpretation Comments Creatine Kinase (test code = 2157-6) 75 29-168 [facility] McKinneyCreatine Wojovl0927-57-28 08:50:00* Test Item Value Reference Range Interpretation Comments Creatine Kinase (test code = 2157-6) 75 29-168 [facility] McKinneyCreatine Cfpctf1754-67-59 08:50:00* Test Item Value Reference Range Interpretation Comments Creatine Kinase (test code = 2157-6) 75 29-168 [facility] McKinneyCreatine Czugpl5480-54-65 08:50:00* Test Item Value Reference Range Interpretation Comments Creatine Kinase (test code = 2157-6) 75 29-168 [facility] McKinneyCreatine Sqfmyn9945-87-47 08:50:00* Test Item Value Reference Range Interpretation Comments Creatine Kinase (test code = 2157-6) 75 29-168 [facility] McKinneyHuman Chorionic Gonadotropin, Qual 2018-01-21 08:38:00* Test Item Value Reference Range Interpretation Comments Human Chorionic Gonadotropin, Qual (test code = 2118-8) NEGATIVE NEGATIVE [facility] McKinneyHuman Chorionic Gonadotropin, Qual 2018-01-21 08:38:00* Test Item Value Reference Range Interpretation Comments Human Chorionic Gonadotropin, Qual (test code = 2118-8) NEGATIVE NEGATIVE [facility] McKinneyHuman Chorionic Gonadotropin, Qual 2018-01-21 08:38:00* Test Item Value Reference Range Interpretation Comments Human Chorionic Gonadotropin, Qual (test code = 2118-8) NEGATIVE NEGATIVE [facility] McKinneyUrine KKH0057-38-22 08:35:00* Test Item Value Reference Range Interpretation Comments Urine WBC (test code = 5821-4) 0-5 0-5 [facility] McKinneyUrine TGV2521-80-64 08:35:00* Test Item Value Reference Range Interpretation Comments Urine RBC (test code = 47312-8) 0-5 0-5 [facility] McKinneyUrine Cukfdqqe9676-31-45 08:35:00* Test Item Value Reference Range Interpretation Comments Urine Bacteria (test code = 98218-4) MANY NONE H [facility] McKinneyUrine Epithelial Anmod4887-91-44 08:35:00 * Test Item Value Reference Range Interpretation Comments Urine Epithelial Cells (test code = 10861-1) MODERATE NONE [facility] McKinneyUrine Kpdal1579-11-13 08:30:00* Test Item Value Reference Range Interpretation Comments Urine Color (test code = 5778-6) YELLOW YELLOW [facility] McKinneyUrine Nwgsvhp1491-62-92 08:30:00* Test Item Value Reference Range Interpretation Comments Urine Clarity (test code = 76669-0) SL CLOUDY CLEAR [facility] McKinneyUrine Specific Hzrtijk2008-79-01 08:30:00 * Test Item Value Reference Range Interpretation Comments Urine Specific Central (test code = 5811-5) 1.005 1.010-1.02 5 L [facility] McKinneyUrine cU1527-09-32 08:30:00* Test Item Value Reference Range Interpretation Comments Urine pH (test code = 79608-9) 6 5-7 [facility] McKinneyUrine Leukocyte Gobecahe0678-97-88 08:30:00* Test Item Value Reference Range Interpretation Comments Urine Leukocyte Esterase (test code = 5799-2) NEGATIVE NEGATIVE [facility] McKinneyUrine Zinpxxl2018-94-67 08:30:00* Test Item Value Reference Range Interpretation Comments Urine Nitrite (test code = 46094-9) POSITIVE NEGATIVE H [facility] McKinneyUrine Tjxeyjj0491-46-06 08:30:00* Test Item Value Reference Range Interpretation Comments Urine Protein (test code = 5804-0) NEGATIVE NEGATIVE [facility] McKinneyUrine Glucose (UA)2018-01-21 08:30:00* Test Item Value Reference Range Interpretation Comments Urine Glucose (UA) (test code = 2349-9) NEGATIVE NEGATIVE [facility] McKinneyUrine Ajohfof7813-69-09 08:30:00* Test Item Value Reference Range Interpretation Comments Urine Ketones (test code = 29472-3) NEGATIVE NEGATIVE [facility] McKinneyUrine Noiogianyzym3693-58-82 08:30:00* Test Item Value Reference Range Interpretation Comments Urine Urobilinogen (test code = 00386-6) 0.2 0.2-1 [facility]neyUrine Kvnbwnfbt5382-02-23 08:30:00* Test Item Value Reference Range Interpretation Comments Urine Bilirubin (test code = 1978-6) NEGATIVE NEGATIVE [facility] McKinneyUrine Kjqyr7063-91-76 08:30:00* Test Item Value Reference Range Interpretation Comments Urine Blood (test code = 78429-4) NEGATIVE NEGATIVE [facility] McKinneyWhite Blood Ufpcd5069-23-94 08:29:00* Test Item Value Reference Range Interpretation Comments White Blood Count (test code = 6690-2) 5.64 4.8-10.8 [facility] McKinneyRed Blood Vtvuq0145-30-23 08:29:00* Test Item Value Reference Range Interpretation Comments Red Blood Count (test code = 789-8) 4.36 3.6-5.1 [facility] McKinneyHemoglobin2018-08-23 08:29:00* Test Item Value Reference Range Interpretation Comments Hemoglobin (test code = 22577-5) 12.8 12.0-16.0 [facility] McKinneyHematocrit2018-08-23 08:29:00* Test Item Value Reference Range Interpretation Comments Hematocrit (test code = 4544-3) 37.7 34.2-44.1 [facility] McKinneyMean Corpuscular Cvjkdh8268-43-92 08:29:00* Test Item Value Reference Range Interpretation Comments Mean Corpuscular Volume (test code = 787-2) 86.5 81-99 [facility] McKinneyMean Corpuscular Rzlhtzfqlt7046-56-49 08:29:00* Test Item Value Reference Range Interpretation Comments Mean Corpuscular Hemoglobin (test code = 785-6) 29.4 28-32 [facility] McKinneyMean Corpuscular Hemoglobin Concent 2018-01-21 08:29:00* Test Item Value Reference Range Interpretation Comments Mean Corpuscular Hemoglobin Concent (test code = 786-4) 34.0 31-35 [facility] McKinneyRed Cell Distribution Fghzt7062-93-48 08:29:00* Test Item Value Reference Range Interpretation Comments Red Cell Distribution Width (test code = 00019-0) 14.2 11.7 -14.4 [facility] McKinneyPlatelet Kkpcr6770-21-06 08:29:00* Test Item Value Reference Range Interpretation Comments Platelet Count (test code = 777-3) 263 140-360 [facility] McKinneyNeutrophils (%) (Auto)2018-01-21 08:29:00 * Test Item Value Reference Range Interpretation Comments Neutrophils (%) (Auto) (test code = 56482-8) 64.9 38.7-80.0 [facility] McKinneyLymphocytes (%) (Auto)2018-01-21 08:29:00 * Test Item Value Reference Range Interpretation Comments Lymphocytes (%) (Auto) (test code = 736-9) 28.2 18.0-39.1 [facility] McKinneyMonocytes (%) (Auto)2018-01-21 08:29:00* Test Item Value Reference Range Interpretation Comments Monocytes (%) (Auto) (test code = 5905-5) 5.0 4.4-11.3 [facility]neyEosinophils (%) (Auto)2018-01-21 08:29:00 * Test Item Value Reference Range Interpretation Comments Eosinophils (%) (Auto) (test code = 713-8) 1.4 0.0-6.0 [facility] McKinneyBasophils (%) (Auto)2018-01-21 08:29:00* Test Item Value Reference Range Interpretation Comments Basophils (%) (Auto) (test code = 706-2) 0.5 0.0-1.0 [facility] McKinneyIM GRANULOCYTES %2018-01-21 08:29:00* Test Item Value Reference Range Interpretation Comments IM GRANULOCYTES % (test code = IM GRANULOCYTES %) 0.0 0.0- 1.0 [facility] McKinneyNeutrophils # (Auto)2018-01-21 08:29:00* Test Item Value Reference Range Interpretation Comments Neutrophils # (Auto) (test code = 751-8) 3.7 2.1-6.9 [facility] McKinneyLymphocytes # (Auto)2018-01-21 08:29:00* Test Item Value Reference Range Interpretation Comments Lymphocytes # (Auto) (test code = 21756-1) 1.6 1.0-3.2 [facility] McKinneyMonocytes # (Auto)2018-01-21 08:29:00* Test Item Value Reference Range Interpretation Comments Monocytes # (Auto) (test code = 742-7) 0.3 0.2-0.8 [facility]neyEosinophils # (Auto)2018-01-21 08:29:00* Test Item Value Reference Range Interpretation Comments Eosinophils # (Auto) (test code = 711-2) 0.1 0.0-0.4 [facility] McKinneyBasophils # (Auto)2018-01-21 08:29:00* Test Item Value Reference Range Interpretation Comments Basophils # (Auto) (test code = 704-7) 0.0 0.0-0.1 [facility] McKinneyAbsolute Immature Granulocyte (auto 2018-01-21 08:29:00* Test Item Value Reference Range Interpretation Comments Absolute Immature Granulocyte (auto (alexa t code = Absolute Immature Granulocyte (auto) 0 0-0.1 [facility] McKinneyWhite Blood Ahwiz1007-48-36 08:29:00* Test Item Value Reference Range Interpretation Comments White Blood Count (test code = 6690-2) 5.64 4.8-10.8 [facility] McKinneyRed Blood Tccna6387-87-37 08:29:00* Test Item Value Reference Range Interpretation Comments Red Blood Count (test code = 789-8) 4.36 3.6-5.1 [facility] McKinneyHemoglobin2018-08-23 08:29:00* Test Item Value Reference Range Interpretation Comments Hemoglobin (test code = 59286-3) 12.8 12.0-16.0 [facility] McKinneyHematocrit2018-08-23 08:29:00* Test Item Value Reference Range Interpretation Comments Hematocrit (test code = 4544-3) 37.7 34.2-44.1 [facility] McKinneyMean Corpuscular Pyvkie2312-71-41 08:29:00* Test Item Value Reference Range Interpretation Comments Mean Corpuscular Volume (test code = 787-2) 86.5 81-99 [facility] McKinneyMean Corpuscular Xlhgedzxdp8555-68-64 08:29:00* Test Item Value Reference Range Interpretation Comments Mean Corpuscular Hemoglobin (test code = 785-6) 29.4 28-32 [facility] McKinneyMean Corpuscular Hemoglobin Concent 2018-01-21 08:29:00* Test Item Value Reference Range Interpretation Comments Mean Corpuscular Hemoglobin Concent (test code = 786-4) 34.0 31-35 [facility] McKinneyRed Cell Distribution Qvcrk2550-36-61 08:29:00* Test Item Value Reference Range Interpretation Comments Red Cell Distribution Width (test code = 21019-2) 14.2 11.7 -14.4 [facility] McKinneyPlatelet Twrfd4985-65-04 08:29:00* Test Item Value Reference Range Interpretation Comments Platelet Count (test code = 777-3) 263 140-360 [facility] McKinneyNeutrophils (%) (Auto)2018-01-21 08:29:00 * Test Item Value Reference Range Interpretation Comments Neutrophils (%) (Auto) (test code = 42270-2) 64.9 38.7-80.0 [facility] McKinneyLymphocytes (%) (Auto)2018-01-21 08:29:00 * Test Item Value Reference Range Interpretation Comments Lymphocytes (%) (Auto) (test code = 736-9) 28.2 18.0-39.1 [facility] McKinneyMonocytes (%) (Auto)2018-01-21 08:29:00* Test Item Value Reference Range Interpretation Comments Monocytes (%) (Auto) (test code = 5905-5) 5.0 4.4-11.3 [facility]neyEosinophils (%) (Auto)2018-01-21 08:29:00 * Test Item Value Reference Range Interpretation Comments Eosinophils (%) (Auto) (test code = 713-8) 1.4 0.0-6.0 [facility] McKinneyBasophils (%) (Auto)2018-01-21 08:29:00* Test Item Value Reference Range Interpretation Comments Basophils (%) (Auto) (test code = 706-2) 0.5 0.0-1.0 [facility] McKinneyIM GRANULOCYTES %2018-01-21 08:29:00* Test Item Value Reference Range Interpretation Comments IM GRANULOCYTES % (test code = IM GRANULOCYTES %) 0.0 0.0- 1.0 [facility] McKinneyNeutrophils # (Auto)2018-01-21 08:29:00* Test Item Value Reference Range Interpretation Comments Neutrophils # (Auto) (test code = 751-8) 3.7 2.1-6.9 [facility] McKinneyLymphocytes # (Auto)2018-01-21 08:29:00* Test Item Value Reference Range Interpretation Comments Lymphocytes # (Auto) (test code = 51725-4) 1.6 1.0-3.2 [facility] McKinneyMonocytes # (Auto)2018-01-21 08:29:00* Test Item Value Reference Range Interpretation Comments Monocytes # (Auto) (test code = 742-7) 0.3 0.2-0.8 [facility]neyEosinophils # (Auto)2018-01-21 08:29:00* Test Item Value Reference Range Interpretation Comments Eosinophils # (Auto) (test code = 711-2) 0.1 0.0-0.4 [facility]neyBasophils # (Auto)2018-01-21 08:29:00* Test Item Value Reference Range Interpretation Comments Basophils # (Auto) (test code = 704-7) 0.0 0.0-0.1 [facility] McKinneyAbsolute Immature Granulocyte (auto 2018-01-21 08:29:00* Test Item Value Reference Range Interpretation Comments Absolute Immature Granulocyte (auto (alexa t code = Absolute Immature Granulocyte (auto) 0 0-0.1 [facility] McKinneyCT ABDOMEN/PELVIS [id number] 12:07:00 [place] [address] Patient Name: ANGELA ESPINOSA MR #: [id number] D OB: 1975 Age/Sex: 42/F Req #: [id number] Adm Physic domo: Ordered by: MADELINE GILBERT MD Report #: [id number] Location: [facility]/Bed: Procedure: CT/CT ABDOMEN/PELVIS W Exam Date: 12/04/17 [...] at 12:07 Dictated By: LISA SALES DO 1207 Transcribed By: FAVIAN on 12/04/17 1207 COPY TO: MADELINE GILBERT MD Amylase Level 2017-12-04 08:54:00* Test Item Value Reference Range Interpretation Comments Amylase Level (test code = 1798-8) 52 25-125 [facility] McKinneyLipase2018-07-06 08:54:00* Test Item Value Reference Range Interpretation Comments Lipase (test code = 3040-3) 20 8-78 [facility]odium Nfpew8333-74-12 08:41:00* Test Item Value Reference Range Interpretation Comments Sodium Level (test code = 2951-2) 138 136-145 [facility] McKinneyPotassium Ggrpk4808-51-10 08:41:00* Test Item Value Reference Range Interpretation Comments Potassium Level (test code = 2823-3) 3.7 3.5-5.1 [facility] McKinneyChloride Kmsmz1679-83-25 08:41:00* Test Item Value Reference Range Interpretation Comments Chloride Level (test code = 2075-0) 108 98-107 H [facility] McKinneyCarbon Dioxide Sieps6109-22-70 08:41:00* Test Item Value Reference Range Interpretation Comments Carbon Dioxide Level (test code = 2028-9) 22 22-29 [facility] McKinneyAnion Tsl6841-34-96 08:41:00* Test Item Value Reference Range Interpretation Comments Anion Gap (test code = 96206-2) 11.7 8-16 [facility] McKinneyBlood Urea Fkwvjxod1694-95-69 08:41:00* Test Item Value Reference Range Interpretation Comments Blood Urea Nitrogen (test code = 3094-0) 11 7-26 [facility] McKinneyCreatinine2018-07-06 08:41:00* Test Item Value Reference Range Interpretation Comments Creatinine (test code = 2160-0) 0.88 0.57-1.11 [facility] McKinneyBUN/Creatinine Xqpfz1957-11-03 08:41:00* Test Item Value Reference Range Interpretation Comments BUN/Creatinine Ratio (test code = 3097-3) 13 6-25 [facility] McKinneyEstimat Glomerular Filtration Rate 2017-12-04 08:41:00* Test Item Value Reference Range Interpretation Comments Estimat Glomerular Filtration Rate (test code = 22277-7) 60- >60 Ranges were taken from the National Kidney Disease Education Program and the [facility] Kid[facility] Foundation literature.Reference ranges:60 or greater: Xhcfzn01-00 ( for 3 consecutive months): Chronic kidney disease 15 or less: Kidney failureBaylor Scott & White Medical Center – McKinneyGlucose Yemgr7904-86-86 08:41:00* Test Item Value Reference Range Interpretation Comments Glucose Level (test code = ZDZ0383) 95 74-118 [facility] McKinneyCalcium Vzymp4699-41-71 08:41:00* Test Item Value Reference Range Interpretation Comments Calcium Level (test code = 76118-6) 9.2 8.4-10.2 [facility] McKinneyTotal Hapuyfhbi4310-81-43 08:41:00* Test Item Value Reference Range Interpretation Comments Total Bilirubin (test code = 1975-2) 0.8 0.2-1.2 [facility] McKinneyAspartate Amino Transf (AST/SGOT) 2017-12-04 08:41:00* Test Item Value Reference Range Interpretation Comments Aspartate Amino Transf (AST/SGOT) (test code = Aspartate Amino Transf (AST/SGOT)) 15 5-34 [facility] McKinneyAlanine Aminotransferase (ALT/SGPT) 2017-12-04 08:41:00* Test Item Value Reference Range Interpretation Comments Alanine Aminotransferase (ALT/SGPT) (test code = 1742-6) 13 0-55 [facility] McKinneyTotal Cyylrox1357-38-68 08:41:00* Test Item Value Reference Range Interpretation Comments Total Protein (test code = 2885-2) 6.9 6.5-8.1 [facility] McKinneyAlbumin2018-07-06 08:41:00* Test Item Value Reference Range Interpretation Comments Albumin (test code = 1751-7) 3.8 3.5-5.0 [facility] McKinneyGlobulin2018-07-06 08:41:00* Test Item Value Reference Range Interpretation Comments Globulin (test code = 03393-0) 3.1 2.3-3.5 [facility] McKinneyAlbumin/Globulin Czoxn2666-48-72 08:41:00 * Test Item Value Reference Range Interpretation Comments Albumin/Globulin Ratio (test code = 1759-0) 1.2 0.8-2.0 [facility] McKinneyAlkaline Hbxvftxsygu1062-09-59 08:41:00* Test Item Value Reference Range Interpretation Comments Alkaline Phosphatase (test code = 6768-6) 83 40-150 [facility] McKinneyUrine PGT0680-45-52 08:39:00* Test Item Value Reference Range Interpretation Comments Urine WBC (test code = 5821-4) 0-5 0-5 [facility] McKinneyUrine MDV1669-81-69 08:39:00* Test Item Value Reference Range Interpretation Comments Urine RBC (test code = 52780-4) NONE 0-5 [facility] McKinneyUrine Wsnivuvi0273-67-79 08:39:00* Test Item Value Reference Range Interpretation Comments Urine Bacteria (test code = 11935-1) FEW NONE [facility] McKinneyUrine Epithelial Pxbdp0448-27-72 08:39:00 * Test Item Value Reference Range Interpretation Comments Urine Epithelial Cells (test code = 52277-2) FEW NONE [facility] McKinneyUrine Oirrz9394-49-31 08:28:00* Test Item Value Reference Range Interpretation Comments Urine Color (test code = 5778-6) YELLOW YELLOW [facility] McKinneyUrine Yddqvob7547-20-51 08:28:00* Test Item Value Reference Range Interpretation Comments Urine Clarity (test code = 44786-1) CLEAR CLEAR [facility] McKinneyUrine Specific Cndjmjk5826-19-38 08:28:00 * Test Item Value Reference Range Interpretation Comments Urine Specific Central (test code = 5811-5) 1.020 1.010-1.02 5 [facility] McKinneyUrine eS2278-98-60 08:28:00* Test Item Value Reference Range Interpretation Comments Urine pH (test code = 83203-2) 6 5-7 [facility] McKinneyUrine Leukocyte Qaodemsa8928-95-06 08:28:00* Test Item Value Reference Range Interpretation Comments Urine Leukocyte Esterase (test code = 5799-2) NEGATIVE NEGATIVE [facility] McKinneyUrine Sbzrtua7354-97-14 08:28:00* Test Item Value Reference Range Interpretation Comments Urine Nitrite (test code = 72265-3) NEGATIVE NEGATIVE [facility] McKinneyUrine Xhbkgsl7336-49-82 08:28:00* Test Item Value Reference Range Interpretation Comments Urine Protein (test code = 5804-0) NEGATIVE NEGATIVE [facility] McKinneyUrine Glucose (UA)2017-12-04 08:28:00* Test Item Value Reference Range Interpretation Comments Urine Glucose (UA) (test code = 2349-9) NEGATIVE NEGATIVE [facility] McKinneyUrine Gtqjmnz1618-22-01 08:28:00* Test Item Value Reference Range Interpretation Comments Urine Ketones (test code = 93035-4) NEGATIVE NEGATIVE [facility] McKinneyUrine Bfjfvmvxvvux4682-51-30 08:28:00* Test Item Value Reference Range Interpretation Comments Urine Urobilinogen (test code = 78281-6) 0.2 0.2-1 [facility] McKinneyUrine Wsqfbnwpx4226-86-99 08:28:00* Test Item Value Reference Range Interpretation Comments Urine Bilirubin (test code = 1978-6) NEGATIVE NEGATIVE [facility] McKinneyUrine Rjjah2203-92-38 08:28:00* Test Item Value Reference Range Interpretation Comments Urine Blood (test code = 36056-1) NEGATIVE NEGATIVE [facility] McKinneyWhite Blood Pkiyg9604-44-81 08:25:00* Test Item Value Reference Range Interpretation Comments White Blood Count (test code = 6690-2) 6.93 4.8-10.8 [facility] McKinneyRed Blood Rychy5659-89-70 08:25:00* Test Item Value Reference Range Interpretation Comments Red Blood Count (test code = 789-8) 4.59 3.6-5.1 [facility] McKinneyHemoglobin2018-07-06 08:25:00* Test Item Value Reference Range Interpretation Comments Hemoglobin (test code = 29128-0) 13.1 12.0-16.0 [facility] McKinneyHematocrit2018-07-06 08:25:00* Test Item Value Reference Range Interpretation Comments Hematocrit (test code = 4544-3) 38.0 34.2-44.1 [facility] McKinneyMean Corpuscular Jzxyce9734-74-65 08:25:00* Test Item Value Reference Range Interpretation Comments Mean Corpuscular Volume (test code = 787-2) 82.8 81-99 [facility] McKinneyMean Corpuscular Oujimymksq5248-92-90 08:25:00* Test Item Value Reference Range Interpretation Comments Mean Corpuscular Hemoglobin (test code = 785-6) 28.5 28-32 [facility] McKinneyMean Corpuscular Hemoglobin Concent 2017-12-04 08:25:00* Test Item Value Reference Range Interpretation Comments Mean Corpuscular Hemoglobin Concent (test code = 786-4) 34.5 31-35 [facility] McKinneyRed Cell Distribution Burts9754-82-94 08:25:00* Test Item Value Reference Range Interpretation Comments Red Cell Distribution Width (test code = 84589-3) 13.8 11.7 -14.4 [facility] McKinneyPlatelet Nfopt2355-10-45 08:25:00* Test Item Value Reference Range Interpretation Comments Platelet Count (test code = 777-3) 275 140-360 [facility] McKinneyNeutrophils (%) (Auto)2017-12-04 08:25:00 * Test Item Value Reference Range Interpretation Comments Neutrophils (%) (Auto) (test code = 69483-1) 71.1 38.7-80.0 [facility] McKinneyLymphocytes (%) (Auto)2017-12-04 08:25:00 * Test Item Value Reference Range Interpretation Comments Lymphocytes (%) (Auto) (test code = 736-9) 22.5 18.0-39.1 [facility] McKinneyMonocytes (%) (Auto)2017-12-04 08:25:00* Test Item Value Reference Range Interpretation Comments Monocytes (%) (Auto) (test code = 5905-5) 4.2 4.4-11.3 L [facility] McKinneyEosinophils (%) (Auto)2017-12-04 08:25:00 * Test Item Value Reference Range Interpretation Comments Eosinophils (%) (Auto) (test code = 713-8) 1.4 0.0-6.0 [facility] McKinneyBasophils (%) (Auto)2017-12-04 08:25:00* Test Item Value Reference Range Interpretation Comments Basophils (%) (Auto) (test code = 706-2) 0.7 0.0-1.0 [facility] McKinneyIM GRANULOCYTES %2017-12-04 08:25:00* Test Item Value Reference Range Interpretation Comments IM GRANULOCYTES % (test code = IM GRANULOCYTES %) 0.1 0.0- 1.0 [facility] McKinneyNeutrophils # (Auto)2017-12-04 08:25:00* Test Item Value Reference Range Interpretation Comments Neutrophils # (Auto) (test code = 751-8) 4.9 2.1-6.9 [facility] McKinneyLymphocytes # (Auto)2017-12-04 08:25:00* Test Item Value Reference Range Interpretation Comments Lymphocytes # (Auto) (test code = 04203-8) 1.6 1.0-3.2 [facility] McKinneyMonocytes # (Auto)2017-12-04 08:25:00* Test Item Value Reference Range Interpretation Comments Monocytes # (Auto) (test code = 742-7) 0.3 0.2-0.8 [facility] McKinneyEosinophils # (Auto)2017-12-04 08:25:00* Test Item Value Reference Range Interpretation Comments Eosinophils # (Auto) (test code = 711-2) 0.1 0.0-0.4 [facility] McKinneyBasophils # (Auto)2017-12-04 08:25:00* Test Item Value Reference Range Interpretation Comments Basophils # (Auto) (test code = 704-7) 0.1 0.0-0.1 [facility] McKinneyAbsolute Immature Granulocyte (auto 2017-12-04 08:25:00* Test Item Value Reference Range Interpretation Comments Absolute Immature Granulocyte (auto (alexa t code = Absolute Immature Granulocyte (auto) 0.01 0-0.1 [facility] McKinneyCT ABDOMEN/PELVIS [id number] 10:22:00 [place] [address] Patient Name: ANGELA ESPINOSA MR #: [id number] D OB: 1975 Age/Sex: 41/F Req #: [id number] Adm Physic domo: Ordered by: CANDE LOUIS MD Report #: [id number] Location: Room/Bed: Procedure: [id number] CT/CT ABDOMEN/PELVIS W Exam Date: 11/17/17 Exam [...] 22 COPY TO: CANDE LOUIS MD Sodium Zsfkd3658-74-84 08:38:00 * Test Item Value Reference Range Interpretation Comments Sodium Level (test code = 2951-2) 136 136-145 [facility] McKinneyPotassium Ygyvy0642-84-74 08:38:00* Test Item Value Reference Range Interpretation Comments Potassium Level (test code = 2823-3) 4.2 3.5-5.1 [facility] McKinneyChloride Igfnx3334-19-47 08:38:00* Test Item Value Reference Range Interpretation Comments Chloride Level (test code = 2075-0) 109 98-107 H [facility] McKinneyCarbon Dioxide Hdqeb7341-31-29 08:38:00* Test Item Value Reference Range Interpretation Comments Carbon Dioxide Level (test code = 2028-9) 19 22-29 L [facility] McKinneyAnion Jot3257-36-77 08:38:00* Test Item Value Reference Range Interpretation Comments Anion Gap (test code = 87879-6) 12.2 8-16 [facility] McKinneyBlood Urea Fvggmwtv4567-39-11 08:38:00* Test Item Value Reference Range Interpretation Comments Blood Urea Nitrogen (test code = 3094-0) 14 7-26 [facility] McKinneyCreatinine2018-06-19 08:38:00* Test Item Value Reference Range Interpretation Comments Creatinine (test code = 2160-0) 0.83 0.57-1.11 [facility] McKinneyBUN/Creatinine Exceq2437-54-58 08:38:00* Test Item Value Reference Range Interpretation Comments BUN/Creatinine Ratio (test code = 3097-3) 17 6-25 [facility] McKinneyEstimat Glomerular Filtration Rate 2017-11-17 08:38:00* Test Item Value Reference Range Interpretation Comments Estimat Glomerular Filtration Rate (test code = 22785-2) 60- >60 Ranges were taken from the National Kidney Disease Education Program and the [facility] Kid[facility] Foundation literature.Reference ranges:60 or greater: Ogkpny64-51 ( for 3 consecutive months): Chronic kidney disease 15 or less: Kidney failureBaylor Scott & White Medical Center – McKinneyGlucose Iztrq5497-62-49 08:38:00* Test Item Value Reference Range Interpretation Comments Glucose Level (test code = ULU6720) 105 74-118 [facility] McKinneyCalcium Hgphm3072-45-16 08:38:00* Test Item Value Reference Range Interpretation Comments Calcium Level (test code = 54454-3) 9.2 8.4-10.2 [facility] McKinneyTotal Ozdiatmgw0776-91-32 08:38:00* Test Item Value Reference Range Interpretation Comments Total Bilirubin (test code = 1975-2) 0.3 0.2-1.2 [facility] McKinneyAspartate Amino Transf (AST/SGOT) 2017-11-17 08:38:00* Test Item Value Reference Range Interpretation Comments Aspartate Amino Transf (AST/SGOT) (test code = Aspartate Amino Transf (AST/SGOT)) 14 5-34 [facility] McKinneyAlanine Aminotransferase (ALT/SGPT) 2017-11-17 08:38:00* Test Item Value Reference Range Interpretation Comments Alanine Aminotransferase (ALT/SGPT) (test code = 1742-6) 18 0-55 [facility] McKinneyTotal Pbrcczv8232-76-04 08:38:00* Test Item Value Reference Range Interpretation Comments Total Protein (test code = 2885-2) 6.8 6.5-8.1 [facility] McKinneyAlbumin2018-06-19 08:38:00* Test Item Value Reference Range Interpretation Comments Albumin (test code = 1751-7) 3.8 3.5-5.0 [facility] McKinneyGlobulin2018-06-19 08:38:00* Test Item Value Reference Range Interpretation Comments Globulin (test code = 07799-7) 3.0 2.3-3.5 [facility] McKinneyAlbumin/Globulin Cpufg1503-32-24 08:38:00 * Test Item Value Reference Range Interpretation Comments Albumin/Globulin Ratio (test code = 1759-0) 1.3 0.8-2.0 [facility] McKinneyAlkaline Ipzikznthtw6025-89-99 08:38:00* Test Item Value Reference Range Interpretation Comments Alkaline Phosphatase (test code = 6768-6) 87 40-150 [facility] McKinneyAmylase Bvsju3603-18-12 08:38:00* Test Item Value Reference Range Interpretation Comments Amylase Level (test code = 1798-8) 79 25-125 [facility] McKinneyLipase2018-06-19 08:38:00* Test Item Value Reference Range Interpretation Comments Lipase (test code = 3040-3) 38 8-78 [facility] McKinneyUrine HGC8683-88-01 08:23:00* Test Item Value Reference Range Interpretation Comments Urine WBC (test code = 5821-4) 0-5 0-5 [facility] McKinneyUrine ESV6532-75-54 08:23:00* Test Item Value Reference Range Interpretation Comments Urine RBC (test code = 74018-1) 0-5 0-5 [facility] McKinneyUrine Peimprhl5801-43-04 08:23:00* Test Item Value Reference Range Interpretation Comments Urine Bacteria (test code = 32800-9) FEW NONE [facility] McKinneyUrine Epithelial Cbizp2947-09-51 08:23:00 * Test Item Value Reference Range Interpretation Comments Urine Epithelial Cells (test code = 92319-0) MODERATE NONE [facility] McKinneyUrine Vfhrd8187-84-41 08:20:00* Test Item Value Reference Range Interpretation Comments Urine Color (test code = 5778-6) YELLOW YELLOW [facility] McKinneyUrine Dclepfq5445-07-54 08:20:00* Test Item Value Reference Range Interpretation Comments Urine Clarity (test code = 98504-6) SL CLOUDY CLEAR [facility] McKinneyUrine Specific Fnbltvk0991-72-43 08:20:00 * Test Item Value Reference Range Interpretation Comments Urine Specific Central (test code = 5811-5) 1.025 1.010-1.02 5 [facility] McKinneyUrine hI6421-39-49 08:20:00* Test Item Value Reference Range Interpretation Comments Urine pH (test code = 01869-5) 6 5-7 [facility] McKinneyUrine Leukocyte Gbgqjdll2258-75-46 08:20:00* Test Item Value Reference Range Interpretation Comments Urine Leukocyte Esterase (test code = 5799-2) NEGATIVE NEGATIVE [facility] McKinneyUrine Vpviqby9262-05-54 08:20:00* Test Item Value Reference Range Interpretation Comments Urine Nitrite (test code = 62870-3) NEGATIVE NEGATIVE [facility] McKinneyUrine Vlzfnth2289-93-06 08:20:00* Test Item Value Reference Range Interpretation Comments Urine Protein (test code = 5804-0) NEGATIVE NEGATIVE [facility] McKinneyUrine Glucose (UA)2017-11-17 08:20:00* Test Item Value Reference Range Interpretation Comments Urine Glucose (UA) (test code = 2349-9) NEGATIVE NEGATIVE [facility] McKinneyUrine Zrgjodl2598-09-30 08:20:00* Test Item Value Reference Range Interpretation Comments Urine Ketones (test code = 12071-4) NEGATIVE NEGATIVE [facility] [facility]neyUrine Gretmxpchnpm3172-04-06 08:20:00* Test Item Value Reference Range Interpretation Comments Urine Urobilinogen (test code = 84745-0) 0.2 0.2-1 [facility]neyUrine Kdkkdyzod8444-17-36 08:20:00* Test Item Value Reference Range Interpretation Comments Urine Bilirubin (test code = 1978-6) NEGATIVE NEGATIVE [facility]neyUrine Nxxlx6397-04-34 08:20:00* Test Item Value Reference Range Interpretation Comments Urine Blood (test code = 06884-7) NEGATIVE NEGATIVE [facility]neyWhite Blood Vzyaq4067-13-29 08:19:00* Test Item Value Reference Range Interpretation Comments White Blood Count (test code = 6690-2) 6.52 4.8-10.8 [facility]neyRed Blood Bzhry3507-83-09 08:19:00* Test Item Value Reference Range Interpretation Comments Red Blood Count (test code = 789-8) 4.53 3.6-5.1 [facility]neyHemoglobin2018-06-19 08:19:00* Test Item Value Reference Range Interpretation Comments Hemoglobin (test code = 76378-4) 13.1 12.0-16.0 [facility]neyHematocrit2018-06-19 08:19:00* Test Item Value Reference Range Interpretation Comments Hematocrit (test code = 4544-3) 38.2 34.2-44.1 [facility]neyMean Corpuscular Mesghc7195-93-65 08:19:00* Test Item Value Reference Range Interpretation Comments Mean Corpuscular Volume (test code = 787-2) 84.3 81-99 [facility]neyMean Corpuscular Qzisdgssky7071-69-12 08:19:00* Test Item Value Reference Range Interpretation Comments Mean Corpuscular Hemoglobin (test code = 785-6) 28.9 28-32 [facility] McKinneyMean Corpuscular Hemoglobin Concent 2017-11-17 08:19:00* Test Item Value Reference Range Interpretation Comments Mean Corpuscular Hemoglobin Concent (test code = 786-4) 34.3 31-35 [facility] McKinneyRed Cell Distribution Mvpai9703-84-09 08:19:00* Test Item Value Reference Range Interpretation Comments Red Cell Distribution Width (test code = 85062-0) 14.1 11.7 -14.4 [facility] McKinneyPlatelet Kysqa3780-57-29 08:19:00* Test Item Value Reference Range Interpretation Comments Platelet Count (test code = 777-3) 275 140-360 [facility] McKinneyNeutrophils (%) (Auto)2017-11-17 08:19:00 * Test Item Value Reference Range Interpretation Comments Neutrophils (%) (Auto) (test code = 40579-4) 69.1 38.7-80.0 [facility] McKinneyLymphocytes (%) (Auto)2017-11-17 08:19:00 * Test Item Value Reference Range Interpretation Comments Lymphocytes (%) (Auto) (test code = 736-9) 23.3 18.0-39.1 [facility]neyMonocytes (%) (Auto)2017-11-17 08:19:00* Test Item Value Reference Range Interpretation Comments Monocytes (%) (Auto) (test code = 5905-5) 5.2 4.4-11.3 [facility]neyEosinophils (%) (Auto)2017-11-17 08:19:00 * Test Item Value Reference Range Interpretation Comments Eosinophils (%) (Auto) (test code = 713-8) 1.4 0.0-6.0 [facility]neyBasophils (%) (Auto)2017-11-17 08:19:00* Test Item Value Reference Range Interpretation Comments Basophils (%) (Auto) (test code = 706-2) 0.8 0.0-1.0 [facility]neyIM GRANULOCYTES %2017-11-17 08:19:00* Test Item Value Reference Range Interpretation Comments IM GRANULOCYTES % (test code = IM GRANULOCYTES %) 0.2 0.0- 1.0 [facility]neyNeutrophils # (Auto)2017-11-17 08:19:00* Test Item Value Reference Range Interpretation Comments Neutrophils # (Auto) (test code = 751-8) 4.5 2.1-6.9 [facility] McKinneyLymphocytes # (Auto)2017-11-17 08:19:00* Test Item Value Reference Range Interpretation Comments Lymphocytes # (Auto) (test code = 72494-8) 1.5 1.0-3.2 [facility]neyMonocytes # (Auto)2017-11-17 08:19:00* Test Item Value Reference Range Interpretation Comments Monocytes # (Auto) (test code = 742-7) 0.3 0.2-0.8 [facility]neyEosinophils # (Auto)2017-11-17 08:19:00* Test Item Value Reference Range Interpretation Comments Eosinophils # (Auto) (test code = 711-2) 0.1 0.0-0.4 [facility]neyBasophils # (Auto)2017-11-17 08:19:00* Test Item Value Reference Range Interpretation Comments Basophils # (Auto) (test code = 704-7) 0.1 0.0-0.1 [facility] McKinneyAbsolute Immature Granulocyte (auto 2017-11-17 08:19:00* Test Item Value Reference Range Interpretation Comments Absolute Immature Granulocyte (auto (alexa t code = Absolute Immature Granulocyte (auto) 0.01 0-0.1 [facility] McKinneyAspartate Amino Transf (AST/SGOT) 2017-10-26 10:34:00* Test Item Value Reference Range Interpretation Comments Aspartate Amino Transf (AST/SGOT) (test code = Aspartate Amino Transf (AST/SGOT)) 14 5-34 [facility] McKinneyCreatine Vqbkdg1567-73-51 10:34:00* Test Item Value Reference Range Interpretation Comments Creatine Kinase (test code = 2157-6) 58 29-168 [facility] McKinneyCreatine Ydlcud2131-66-26 10:34:00* Test Item Value Reference Range Interpretation Comments Creatine Kinase (test code = 2157-6) 58 29-168 [facility] McKinneyCreatine Wirdfo2008-53-63 10:34:00* Test Item Value Reference Range Interpretation Comments Creatine Kinase (test code = 2157-6) 58 29-168 [facility] McKinneyCreatine Kinase [id number] 10:28:00* Test Item Value Reference Range Interpretation Comments Creatine Kinase MB (test code = 01566-4) 0.90 0-5.0 [facility] N6787-03-20 10:28:00* Test Item Value Reference Range Interpretation Comments Troponin I (test code = EYV5451) -0.001 0-0.300 [facility] McKinneyCreatine Kinase [id number] 10:28:00* Test Item Value Reference Range Interpretation Comments Creatine Kinase MB (test code = 89349-3) 0.90 0-5.0 [facility] [place] [id number] 10:28:00* Test Item Value Reference Range Interpretation Comments Troponin I (test code = MFW3034) -0.001 0-0.300 [facility] McKinneyCreatine Kinase [id number] 10:28:00* Test Item Value Reference Range Interpretation Comments Creatine Kinase MB (test code = 29910-9) 0.90 0-5.0 [place] 68325018-05-28 10:28:00* Test Item Value Reference Range Interpretation Comments Troponin I (test code = GUQ6823) -0.001 0-0.300 [facility] Nbfoo3174-48-67 10:22:00* Test Item Value Reference Range Interpretation Comments Sodium Level (test code = 2951-2) 138 136-145 [facility] McKinneyPotassium Nsztk7136-61-65 10:22:00* Test Item Value Reference Range Interpretation Comments Potassium Level (test code = 2823-3) 4.8 3.5-5.1 [facility] McKinneyChloride Rizrh7256-31-94 10:22:00* Test Item Value Reference Range Interpretation Comments Chloride Level (test code = 2075-0) 109 98-107 H [facility] McKinneyCarbon Dioxide Azqep4868-77-87 10:22:00* Test Item Value Reference Range Interpretation Comments Carbon Dioxide Level (test code = 2028-9) -29 [facility] McKinneyAnion Zih4326-71-91 10:22:00* Test Item Value Reference Range Interpretation Comments Anion Gap (test code = 53132-6) 11.8 8-16 [facility] McKinneyBlood Urea Dvvsmtxj8245-22-98 10:22:00* Test Item Value Reference Range Interpretation Comments Blood Urea Nitrogen (test code = 3094-0) 11 7-26 [facility] McKinneyCreatinine2018-05-28 10:22:00* Test Item Value Reference Range Interpretation Comments Creatinine (test code = 2160-0) 0.84 0.57-1.11 [facility] McKinneyBUN/Creatinine Kfmhp3642-82-30 10:22:00* Test Item Value Reference Range Interpretation Comments BUN/Creatinine Ratio (test code = 3097-3) 13 - [facility] McKinneyEstimat Glomerular Filtration Rate 2017-10-26 10:22:00* Test Item Value Reference Range Interpretation Comments Estimat Glomerular Filtration Rate (test code = 98525-6) 60- >60 Ranges were taken from the National Kidney Disease Education Program and the [employer] [facility] literature.Reference ranges:60 or greater: Nrmcmv12-05 ( for 3 consecutive months): Chronic kidney disease 15 or less: Kidney failureBaylor Scott & [facility] – McKinneyGlucose Nusgt0978-23-00 10:22:00* Test Item Value Reference Range Interpretation Comments Glucose Level (test code = YGH0058) 98 74-118 [facility] McKinneyCalcium Rtwgn9877-84-23 10:22:00* Test Item Value Reference Range Interpretation Comments Calcium Level (test code = 63943-5) 9.1 8.4-10.2 [facility] McKinneyTotal Frhtivjsq5580-69-55 10:22:00* Test Item Value Reference Range Interpretation Comments Total Bilirubin (test code = 1975-2) 0.3 0.2-1.2 [facility] McKinneyAlanine Aminotransferase (ALT/SGPT) 2017-10-26 10:22:00* Test Item Value Reference Range Interpretation Comments Alanine Aminotransferase (ALT/SGPT) (test code = 1742-6) 23 0-55 [facility] McKinneyTotal Hkqtzdh3373-48-46 10:22:00* Test Item Value Reference Range Interpretation Comments Total Protein (test code = 2885-2) 6.6 6.5-8.1 [facility] McKinneyAlbumin2018-05-28 10:22:00* Test Item Value Reference Range Interpretation Comments Albumin (test code = 1751-7) 3.6 3.5-5.0 [facility] McKinneyGlobulin2018-05-28 10:22:00* Test Item Value Reference Range Interpretation Comments Globulin (test code = 63810-8) 3.0 2.3-3.5 [facility] McKinneyAlbumin/Globulin Vulrh9362-35-07 10:22:00 * Test Item Value Reference Range Interpretation Comments Albumin/Globulin Ratio (test code = 1759-0) 1.2 0.8-2.0 [facility] McKinneyAlkaline Wgvurkfupbl1408-08-39 10:22:00* Test Item Value Reference Range Interpretation Comments Alkaline Phosphatase (test code = 6768-6) 79 40-150 [facility] McKinneyLipase2018-05-28 10:22:00* Test Item Value Reference Range Interpretation Comments Lipase (test code = 3040-3) 43 8-78 [facility] McKinneyUrine ARM2676-53-01 10:21:00* Test Item Value Reference Range Interpretation Comments Urine WBC (test code = 5821-4) 0-5 0-5 [facility] McKinneyUrine NMH0319-74-95 10:21:00* Test Item Value Reference Range Interpretation Comments Urine RBC (test code = 47902-5) 0-5 0-5 [facility]neyUrine Hzdlszkc5197-88-48 10:21:00* Test Item Value Reference Range Interpretation Comments Urine Bacteria (test code = 21598-1) FEW NONE [facility] McKinneyUrine Epithelial Mudwx7684-13-99 10:21:00 * Test Item Value Reference Range Interpretation Comments Urine Epithelial Cells (test code = 03657-8) FEW NONE [facility] McKinneyUrine Dckhx7053-15-85 10:21:00* Test Item Value Reference Range Interpretation Comments Urine Mucus (test code = 8247-9) FEW RARE H [facility] McKinneyUrine Chvtw0150-68-14 10:21:00* Test Item Value Reference Range Interpretation Comments Urine Mucus (test code = 8247-9) FEW [facility] Dkohm5610-00-49 10:21:00* Test Item Value Reference Range Interpretation Comments Urine Mucus (test code = 8247-9) FEW [facility] Ccntr2603-96-04 10:21:00* Test Item Value Reference Range Interpretation Comments Urine Mucus (test code = 8247-9) FEW [facility] Okebi3333-27-06 10:21:00* Test Item Value Reference Range Interpretation Comments Urine Mucus (test code = 8247-9) CINDI [facility] Twxfe7632-11-37 10:21:00* Test Item Value Reference Range Interpretation Comments Urine Mucus (test code = 8247-9) [facility] Lpjye0273-36-05 10:21:00* Test Item Value Reference Range Interpretation Comments Urine Mucus (test code = 8247-9) FEW [facility] Xegys5448-68-05 10:21:00* Test Item Value Reference Range Interpretation Comments Urine Mucus (test code = 8247-9) FEW [facility] Dbxqm5356-43-98 10:21:00* Test Item Value Reference Range Interpretation Comments Urine Mucus (test code = 8247-9) [facility] Vtyub0591-94-15 10:21:00* Test Item Value Reference Range Interpretation Comments Urine Mucus (test code = 8247-9) [facility] Sxtxz5427-92-64 10:21:00* Test Item Value Reference Range Interpretation Comments Urine Mucus (test code = 8247-9) [facility] Njmsq3806-47-26 10:12:00* Test Item Value Reference Range Interpretation Comments Urine Color (test code = 5778-6) YELLOW YELLOW [facility] Oqujcqn9817-47-30 10:12:00* Test Item Value Reference Range Interpretation Comments Urine Clarity (test code = 70676-3) CLEAR CLEAR [facility]neyUrine Specific Ctpkxle5862-27-77 10:12:00 * Test Item Value Reference Range Interpretation Comments Urine Specific Central (test code = 5811-5) 1.015 1.010-1.02 5 [facility]neyUrine iR9516-77-27 10:12:00* Test Item Value Reference Range Interpretation Comments Urine pH (test code = 66315-2) 5 5-7 [facility]neyUrine Leukocyte Wcwqxjlb3091-31-26 10:12:00* Test Item Value Reference Range Interpretation Comments Urine Leukocyte Esterase (test code = 5799-2) NEGATIVE NEGATIVE [facility]neyUrine Uniwtqb7251-11-58 10:12:00* Test Item Value Reference Range Interpretation Comments Urine Nitrite (test code = 88227-0) NEGATIVE NEGATIVE [facility]neyUrine Iqygvjd4657-81-47 10:12:00* Test Item Value Reference Range Interpretation Comments Urine Protein (test code = 5804-0) NEGATIVE NEGATIVE [facility]neyUrine Glucose (UA)2017-10-26 10:12:00* Test Item Value Reference Range Interpretation Comments Urine Glucose (UA) (test code = 2349-9) NEGATIVE NEGATIVE [facility]neyUrine Hoegtkx3216-86-18 10:12:00* Test Item Value Reference Range Interpretation Comments Urine Ketones (test code = 39804-9) NEGATIVE NEGATIVE [facility] Xdazoafcblrg3514-70-73 10:12:00* Test Item Value Reference Range Interpretation Comments Urine Urobilinogen (test code = 96282-8) 0.2 0.2-1 [facility]neyUrine Owrymlsbr7769-74-01 10:12:00* Test Item Value Reference Range Interpretation Comments Urine Bilirubin (test code = 1978-6) NEGATIVE NEGATIVE [facility]neyUrine Necvt4314-23-53 10:12:00* Test Item Value Reference Range Interpretation Comments Urine Blood (test code = 95208-9) NEGATIVE NEGATIVE [facility]neyWhite Blood Ebgor8354-36-79 10:10:00* Test Item Value Reference Range Interpretation Comments White Blood Count (test code = 6690-2) 6.34 4.8-10.8 [facility] McKinneyRed Blood Sixxw8498-85-63 10:10:00* Test Item Value Reference Range Interpretation Comments Red Blood Count (test code = 789-8) 4.58 3.6-5.1 [facility] McKinneyHemoglobin2018-05-28 10:10:00* Test Item Value Reference Range Interpretation Comments Hemoglobin (test code = 35928-8) 13.1 12.0-16.0 [facility] McKinneyHematocrit2018-05-28 10:10:00* Test Item Value Reference Range Interpretation Comments Hematocrit (test code = 4544-3) 40.0 34.2-44.1 [facility] McKinneyMean Corpuscular Rdhcuc3678-50-25 10:10:00* Test Item Value Reference Range Interpretation Comments Mean Corpuscular Volume (test code = 787-2) 87.3 81-99 [facility]neyMean Corpuscular Jqcckavnkr5302-98-12 10:10:00* Test Item Value Reference Range Interpretation Comments Mean Corpuscular Hemoglobin (test code = 785-6) 28.6 28-32 [facility] Hem[facility] Concent 2017-10-26 10:10:00* Test Item Value Reference Range Interpretation Comments Mean Corpuscular Hemoglobin Concent (test code = 786-4) 32.8 31-35 [facility] McKinneyRed Cell Distribution Ewkvm2883-40-78 10:10:00* Test Item Value Reference Range Interpretation Comments Red Cell Distribution Width (test code = 13508-4) 14.1 11.7 -14.4 [facility] McKinneyPlatelet Bdmzr6337-10-09 10:10:00* Test Item Value Reference Range Interpretation Comments Platelet Count (test code = 777-3) 259 140-360 [facility]neyNeutrophils (%) (Auto)2017-10-26 10:10:00 * Test Item Value Reference Range Interpretation Comments Neutrophils (%) (Auto) (test code = 06164-1) 65.6 38.7-80.0 [facility] McKinneyLymphocytes (%) (Auto)2017-10-26 10:10:00 * Test Item Value Reference Range Interpretation Comments Lymphocytes (%) (Auto) (test code = 736-9) 25.6 18.0-39.1 [facility] McKinneyMonocytes (%) (Auto)2017-10-26 10:10:00* Test Item Value Reference Range Interpretation Comments Monocytes (%) (Auto) (test code = 5905-5) 5.7 4.4-11.3 [facility]neyEosinophils (%) (Auto)2017-10-26 10:10:00 * Test Item Value Reference Range Interpretation Comments Eosinophils (%) (Auto) (test code = 713-8) 2.2 0.0-6.0 [facility]neyBasophils (%) (Auto)2017-10-26 10:10:00* Test Item Value Reference Range Interpretation Comments Basophils (%) (Auto) (test code = 706-2) 0.6 0.0-1.0 [facility] McKinneyIM GRANULOCYTES %2017-10-26 10:10:00* Test Item Value Reference Range Interpretation Comments IM GRANULOCYTES % (test code = IM GRANULOCYTES %) 0.3 0.0- 1.0 [facility]neyNeutrophils # (Auto)2017-10-26 10:10:00* Test Item Value Reference Range Interpretation Comments Neutrophils # (Auto) (test code = 751-8) 4.2 2.1-6.9 [facility] McKinneyLymphocytes # (Auto)2017-10-26 10:10:00* Test Item Value Reference Range Interpretation Comments Lymphocytes # (Auto) (test code = 99774-7) 1.6 1.0-3.2 [facility] McKinneyMonocytes # (Auto)2017-10-26 10:10:00* Test Item Value Reference Range Interpretation Comments Monocytes # (Auto) (test code = 742-7) 0.4 0.2-0.8 [facility]neyEosinophils # (Auto)2017-10-26 10:10:00* Test Item Value Reference Range Interpretation Comments Eosinophils # (Auto) (test code = 711-2) 0.1 0.0-0.4 [facility]neyBasophils # (Auto)2017-10-26 10:10:00* Test Item Value Reference Range Interpretation Comments Basophils # (Auto) (test code = 704-7) 0.0 0.0-0.1 [facility] McKinneyAbsolute Immature Granulocyte (auto 2017-10-26 10:10:00* Test Item Value Reference Range Interpretation Comments Absolute Immature Granulocyte (auto (alexa t code = Absolute Immature Granulocyte (auto) 0.02 0-0.1 [facility] McKinneyURINALYSIS W/ REFLEX URINE CULTURE 2017-10-25 10:27:00* Test [...] = 1584) Rare SOURCE(BEAKER) (test code = 1485) CT, MUCCPPL8567-82-77 10:25:00FINAL REPORT CT of the abdomen and [...] MDReport Verified Date/Time: 10/25/2017 10:25:23 Reading Location: [address] Consult Reading Room Electronically signed by: KELY AL M.D. on 10/25 10:25 AM QESTOW4641-33-17 09:08:00* Test Item Value Reference Range Interpretation Comments LIPASE (BEAKER) (test code = 749) 40 U/L 8-78 COMPREHENSIVE METABOLIC JWJPK9833-23-73 09:08:00* Test Item Value Reference Range Interpretation [...] DIALYSIS PATIENTS. CBC W/PLT COUNT & AUTO UVHINXOYZNLO1237-67-52 08:46:00* Test Item Value Reference Range Interpretation [...] code = 2801) 1 % 0-1 Sodium Smdkv4038-28-71 08:51:00* Test Item Value Reference Range Interpretation Comments Sodium Level (test code = 2951-2) 137 136-145 [facility] McKinneyPotassium Vncxf9980-56-52 08:51:00* Test Item Value Reference Range Interpretation Comments Potassium Level (test code = 2823-3) 3.5 3.5-5.1 [facility] McKinneyChloride Pdyve7542-18-18 08:51:00* Test Item Value Reference Range Interpretation Comments Chloride Level (test code = 2075-0) 103 98-107 [facility] McKinneyCarbon Dioxide Gpsco7390-68-34 08:51:00* Test Item Value Reference Range Interpretation Comments Carbon Dioxide Level (test code = 2028-9) 24 22-29 [facility] McKinneyAnion Lok7485-00-60 08:51:00* Test Item Value Reference Range Interpretation Comments Anion Gap (test code = 38840-3) 13.5 8-16 [facility] McKinneyBlood Urea Hafmrses4197-98-63 08:51:00* Test Item Value Reference Range Interpretation Comments Blood Urea Nitrogen (test code = 3094-0) 10 7-26 [facility] McKinneyCreatinine2018-04-11 08:51:00* Test Item Value Reference Range Interpretation Comments Creatinine (test code = 2160-0) 0.90 0.57-1.11 [facility] McKinneyBUN/Creatinine Xxnjm4047-81-05 08:51:00* Test Item Value Reference Range Interpretation Comments BUN/Creatinine Ratio (test code = 3097-3) 11 11-23 [facility] McKinneyEstimat Glomerular Filtration Rate 2017-09-09 08:51:00* Test Item Value Reference Range Interpretation Comments Estimat Glomerular Filtration Rate (test code = 45036-0) 60- >60 Ranges were taken from the National Kidney Disease Education Program and the [facility] Kidney Foundation literature.Reference ranges:60 or greater: Mnjwyr96-05 ( for 3 consecutive months): Chronic kidney disease 15 or less: Kidney failureBaylor Scott & [facility] Medical Center – McKinneyGlucose Mecpw9400-24-07 08:51:00* Test Item Value Reference Range Interpretation Comments Glucose Level (test code = KUI2152) 172 74-118 H [facility] McKinneyCalcium Yugqu1980-01-71 08:51:00* Test Item Value Reference Range Interpretation Comments Calcium Level (test code = 76386-3) 9.3 8.4-10.2 [facility] McKinneyTotal Zyysfefhf2536-06-83 08:51:00* Test Item Value Reference Range Interpretation Comments Total Bilirubin (test code = 1975-2) 0.8 0.2-1.2 [facility] McKinneyAspartate Amino Transf (AST/SGOT) 2017-09-09 08:51:00* Test Item Value Reference Range Interpretation Comments Aspartate Amino Transf (AST/SGOT) (test code = Aspartate Amino Transf (AST/SGOT)) 14 -34 [facility] McKinneyAlanine Aminotransferase (ALT/SGPT) 2017-09-09 08:51:00* Test Item Value Reference Range Interpretation Comments Alanine Aminotransferase (ALT/SGPT) (test code = 1742-6) 15 0-55 [facility] McKinneyTotal Qpdqmvn9901-13-68 08:51:00* Test Item Value Reference Range Interpretation Comments Total Protein (test code = 2885-2) 7.0 6.5-8.1 [facility] McKinneyAlbumin2018-04-11 08:51:00* Test Item Value Reference Range Interpretation Comments Albumin (test code = 1751-7) 3.8 3.5-5.0 [facility] McKinneyGlobulin2018-04-11 08:51:00* Test Item Value Reference Range Interpretation Comments Globulin (test code = 98971-6) 3.2 2.3-3.5 [facility] McKinneyAlbumin/Globulin Futvq6716-07-50 08:51:00 * Test Item Value Reference Range Interpretation Comments Albumin/Globulin Ratio (test code = 1759-0) 1.2 0.8-2.0 [facility] McKinneyAlkaline Lzzfzarpetx7151-52-04 08:51:00* Test Item Value Reference Range Interpretation Comments Alkaline Phosphatase (test code = 6768-6) 88 40-150 [facility] McKinneyLipase2018-04-11 08:51:00* Test Item Value Reference Range Interpretation Comments Lipase (test code = 3040-3) 38 8-78 [facility]ney[facility] [id number] 08:50:00* Test Item Value Reference Range Interpretation Comments Urine WBC (test code = 5821-4) NONE 0-5 [facility]neyU[facility] [id number] 08:50:00* Test Item Value Reference Range Interpretation Comments Urine RBC (test code = 81206-4) NONE 0-5 [facility]ney[facility] Wnmvtnnm9325-14-81 08:50:00* Test Item Value Reference Range Interpretation Comments Urine Bacteria (test code = 16850-1) RARE NONE [facility]ney[facility] Epithelial Qdxzp7437-83-75 08:50:00 * Test Item Value Reference Range Interpretation Comments Urine Epithelial Cells (test code = 08279-5) FEW NONE [facility] Lwkwt6952-86-36 08:50:00* Test Item Value Reference Range Interpretation Comments Urine Mucus (test code = 8247-9) RARE RARE [facility] Xsgex3634-71-89 08:37:00* Test Item Value Reference Range Interpretation Comments Urine Color (test code = 5778-6) YELLOW YELLOW [facility] Oanlwmo0737-76-81 08:37:00* Test Item Value Reference Range Interpretation Comments Urine Clarity (test code = 43402-3) SL CLOUDY CLEAR [facility] Specific Fiquzpv2143-17-07 08:37:00 * Test Item Value Reference Range Interpretation Comments Urine Specific Central (test code = 5811-5) 1.020 1.010-1.02 5 [facility] aC0348-89-47 08:37:00* Test Item Value Reference Range Interpretation Comments Urine pH (test code = 75251-8) 6.5 5-7 [facility] Leukocyte Fpgzvoqv7168-55-51 08:37:00* Test Item Value Reference Range Interpretation Comments Urine Leukocyte Esterase (test code = 5799-2) NEGATIVE NEGATIVE [facility] Ahjppvr5673-97-15 08:37:00* Test Item Value Reference Range Interpretation Comments Urine Nitrite (test code = 27336-0) NEGATIVE NEGATIVE [facility] Qjqtiwj8136-86-97 08:37:00* Test Item Value Reference Range Interpretation Comments Urine Protein (test code = 5804-0) NEGATIVE NEGATIVE [facility] Glucose (UA)2017-09-09 08:37:00* Test Item Value Reference Range Interpretation Comments Urine Glucose (UA) (test code = 2349-9) NEGATIVE NEGATIVE [facility] Vqyqozf9239-54-07 08:37:00* Test Item Value Reference Range Interpretation Comments Urine Ketones (test code = 39286-9) NEGATIVE NEGATIVE [facility] Hmfqokbgxodv5353-64-04 08:37:00* Test Item Value Reference Range Interpretation Comments Urine Urobilinogen (test code = 12113-0) 0.2 0.2-1 [facility] Ywzggkhrr5165-71-41 08:37:00* Test Item Value Reference Range Interpretation Comments Urine Bilirubin (test code = 1978-6) NEGATIVE NEGATIVE [facility]ney[facility] Jvten0475-23-31 08:37:00* Test Item Value Reference Range Interpretation Comments Urine Blood (test code = 69416-9) NEGATIVE NEGATIVE [facility]neyWhite Blood Swbhg5115-45-53 08:36:00* Test Item Value Reference Range Interpretation Comments White Blood Count (test code = 6690-2) 6.20 4.8-10.8 [facility]ney[facility] Blood Soylv1157-63-25 08:36:00* Test Item Value Reference Range Interpretation Comments Red Blood Count (test code = 789-8) 4.71 3.6-5.1 [facility]neyHemoglobin2018-04-11 08:36:00* Test Item Value Reference Range Interpretation Comments Hemoglobin (test code = 73857-6) 13.8 12.0-16.0 [facility]neyHematocrit2018-04-11 08:36:00* Test Item Value Reference Range Interpretation Comments Hematocrit (test code = 4544-3) 40.5 34.2-44.1 [facility]neyMean Corpuscular Chcbgo1830-44-94 08:36:00* Test Item Value Reference Range Interpretation Comments Mean Corpuscular Volume (test code = 787-2) 86.0 81-99 [facility]neyMean Corpuscular Hmrgbrdmjs7117-88-21 08:36:00* Test Item Value Reference Range Interpretation Comments Mean Corpuscular Hemoglobin (test code = 785-6) 29.3 28-32 [facility]neyMean Corpuscular Hemoglobin Concent 2017-09-09 08:36:00* Test Item Value Reference Range Interpretation Comments Mean Corpuscular Hemoglobin Concent (test code = 786-4) 34.1 31-35 [facility]neyRed Cell Distribution Iarbn7901-59-96 08:36:00* Test Item Value Reference Range Interpretation Comments Red Cell Distribution Width (test code = 53120-9) 13.3 11.7 -14.4 [facility]neyPlatelet Bumwm6686-06-29 08:36:00* Test Item Value Reference Range Interpretation Comments Platelet Count (test code = 777-3) 292 140-360 [facility]neyNeutrophils (%) (Auto)2017-09-09 08:36:00 * Test Item Value Reference Range Interpretation Comments Neutrophils (%) (Auto) (test code = 24816-3) 73.3 38.7-80.0 [facility]neyLymphocytes (%) (Auto)2017-09-09 08:36:00 * Test Item Value Reference Range Interpretation Comments Lymphocytes (%) (Auto) (test code = 736-9) 19.4 18.0-39.1 [facility]neyMonocytes (%) (Auto)2017-09-09 08:36:00* Test Item Value Reference Range Interpretation Comments Monocytes (%) (Auto) (test code = 5905-5) 4.5 4.4-11.3 [facility]neyEosinophils (%) (Auto)2017-09-09 08:36:00 * Test Item Value Reference Range Interpretation Comments Eosinophils (%) (Auto) (test code = 713-8) 1.9 0.0-6.0 [facility]neyBasophils (%) (Auto)2017-09-09 08:36:00* Test Item Value Reference Range Interpretation Comments Basophils (%) (Auto) (test code = 706-2) 0.6 0.0-1.0 [facility]neyIM GRANULOCYTES %2017-09-09 08:36:00* Test Item Value Reference Range Interpretation Comments IM GRANULOCYTES % (test code = IM GRANULOCYTES %) 0.3 0.0- 1.0 [facility]neyNeutrophils # (Auto)2017-09-09 08:36:00* Test Item Value Reference Range Interpretation Comments Neutrophils # (Auto) (test code = 751-8) 4.5 2.1-6.9 [facility]neyLymphocytes # (Auto)2017-09-09 08:36:00* Test Item Value Reference Range Interpretation Comments Lymphocytes # (Auto) (test code = 49836-1) 1.2 1.0-3.2 [facility]neyMonocytes # (Auto)2017-09-09 08:36:00* Test Item Value Reference Range Interpretation Comments Monocytes # (Auto) (test code = 742-7) 0.3 0.2-0.8 [facility]neyEosinophils # (Auto)2017-09-09 08:36:00* Test Item Value Reference Range Interpretation Comments Eosinophils # (Auto) (test code = 711-2) 0.1 0.0-0.4 [facility]neyBasophils # (Auto)2017-09-09 08:36:00* Test Item Value Reference Range Interpretation Comments Basophils # (Auto) (test code = 704-7) 0.0 0.0-0.1 [facility] McKinneyAbsolute Immature Granulocyte (auto 2017-09-09 08:36:00* Test Item Value Reference Range Interpretation Comments Absolute Immature Granulocyte (auto (alexa t code = Absolute Immature Granulocyte (auto) 0.02 0-0.1 [facility] Dxxixjp1747-89-54 13:18:00* Test Item Value Reference Range Interpretation Comments Blood Culture (test code = 45411148) NO GROWTH AFTER 5 DAYS, FINAL REPORT [facility] Cgigrwr2019-41-55 13:18:00* Test Item Value Reference Range Interpretation Comments Blood Culture (test code = 91650115) NO GROWTH AFTER 5 DAYS, FINAL REPORT [facility]2018-03-27 13:18:00* Test Item Value Reference Range Interpretation Comments Blood Culture (test code = 31190875) NO GROWTH AFTER 5 DAYS, FINAL REPORT [facility]2018-03-27 13:18:00* Test Item Value Reference Range Interpretation Comments Blood Culture (test code = 07414859) NO GROWTH AFTER 5 DAYS, FINAL REPORT [facility] Ufrkbco0992-46-82 13:18:00* Test Item Value Reference Range Interpretation Comments Blood Culture (test code = 90980743) NO GROWTH AFTER 5 DAYS, FINAL REPORT [facility]2018-03-27 13:18:00* Test Item Value Reference Range Interpretation Comments Blood Culture (test code = 81224922) NO GROWTH AFTER 5 DAYS, FINAL REPORT [facility] Tmvwlwu6346-24-89 13:18:00* Test Item Value Reference Range Interpretation Comments Blood Culture (test code = 34020898) NO GROWTH AFTER 5 DAYS, FINAL REPORT [facility] Qlhmfio8288-38-42 13:18:00* Test Item Value Reference Range Interpretation Comments Blood Culture (test code = 21097116) NO GROWTH AFTER 5 DAYS, FINAL REPORT [facility]2018-03-27 13:18:00* Test Item Value Reference Range Interpretation Comments Blood Culture (test code = 72745790) NO GROWTH AFTER 5 DAYS, FINAL REPORT [facility]2018-03-27 13:18:00* Test Item Value Reference Range Interpretation Comments Blood Culture (test code = 30246583) NO GROWTH AFTER 5 DAYS, FINAL REPORT [facility] Akvyh9452-83-48 08:26:00* Test Item Value Reference Range Interpretation Comments Sodium Level (test code = 2951-2) 140 136-145 [facility]neyPotassium Apqnt8589-53-42 08:26:00* Test Item Value Reference Range Interpretation Comments Potassium Level (test code = 2823-3) 3.7 3.5-5.1 [facility]neyChloride Ovpka7453-89-17 08:26:00* Test Item Value Reference Range Interpretation Comments Chloride Level (test code = 2075-0) 109 98-107 H [facility] McKinneyCarbon Dioxide Qbbmo0646-13-70 08:26:00* Test Item Value Reference Range Interpretation Comments Carbon Dioxide Level (test code = 2028-9) 22-29 [facility] McKinneyAnion Lkg6337-93-41 08:26:00* Test Item Value Reference Range Interpretation Comments Anion Gap (test code = 41010-2) 8.7 8-16 [facility] McKinneyBlood Urea Binogdgi9890-01-35 08:26:00* Test Item Value Reference Range Interpretation Comments Blood Urea Nitrogen (test code = 3094-0) 8 7-26 [facility]neyCreatinine2018-03-26 08:26:00* Test Item Value Reference Range Interpretation Comments Creatinine (test code = 2160-0) 0.78 0.57-1.11 [facility] McKinneyBUN/Creatinine Sphem0551-94-33 08:26:00* Test Item Value Reference Range Interpretation Comments BUN/Creatinine Ratio (test code = 3097-3) 10 6-25 [facility] McKinneyEstimat Glomerular Filtration Rate 2017-08-24 08:26:00* Test Item Value Reference Range Interpretation Comments Estimat Glomerular Filtration Rate (test code = 23831-6) 60- >60 Ranges were taken from the National Kidney Disease Education Program and the [facility] Foundation literature.Reference ranges:60 or greater: Ptgfwh72-77 ( for 3 consecutive months): Chronic kidney disease 15 or less: Kidney failureB[facility] Scott & [facility] – McKinneyGlucose Ibgqg3729-63-69 08:26:00* Test Item Value Reference Range Interpretation Comments Glucose Level (test code = PFE4371) 99 74-118 [facility] McKinneyCalcium Jphkh2510-54-46 08:26:00* Test Item Value Reference Range Interpretation Comments Calcium Level (test code = 65453-2) 8.6 8.4-10.2 [facility] McKinneyTotal Rylrmjanw0903-44-42 08:26:00* Test Item Value Reference Range Interpretation Comments Total Bilirubin (test code = 1975-2) 0.5 0.2-1.2 [facility] McKinneyAspartate Amino Transf (AST/SGOT) 2017-08-24 08:26:00* Test Item Value Reference Range Interpretation Comments Aspartate Amino Transf (AST/SGOT) (test code = Aspartate Amino Transf (AST/SGOT)) 19 5-34 [facility] McKinneyAlanine Aminotransferase (ALT/SGPT) 2017-08-24 08:26:00* Test Item Value Reference Range Interpretation Comments Alanine Aminotransferase (ALT/SGPT) (test code = 1742-6) 22 0-55 [facility] McKinneyTotal Pfsrxpj0673-15-56 08:26:00* Test Item Value Reference Range Interpretation Comments Total Protein (test code = 2885-2) 6.0 6.5-8.1 L [facility] McKinneyAlbumin2018-03-26 08:26:00* Test Item Value Reference Range Interpretation Comments Albumin (test code = 1751-7) 3.3 3.5-5.0 L [facility] McKinneyGlobulin2018-03-26 08:26:00* Test Item Value Reference Range Interpretation Comments Globulin (test code = 50304-9) 2.7 2.3-3.5 [facility] McKinneyAlbumin/Globulin Wpzgk0135-89-35 08:26:00 * Test Item Value Reference Range Interpretation Comments Albumin/Globulin Ratio (test code = 1759-0) 1.2 0.8-2.0 [facility] McKinneyAlkaline Usfrmuoygzl0130-45-73 08:26:00* Test Item Value Reference Range Interpretation Comments Alkaline Phosphatase (test code = 6768-6) 85 40-150 [facility] McKinneyWhite Blood Oqkuo0392-72-84 08:10:00* Test Item Value Reference Range Interpretation Comments White Blood Count (test code = 6690-2) 9.20 4.8-10.8 [facility] McKinneyRed Blood Enitr5923-29-58 08:10:00* Test Item Value Reference Range Interpretation Comments Red Blood Count (test code = 789-8) 4.06 3.6-5.1 [facility]neyHemoglobin2018-03-26 08:10:00* Test Item Value Reference Range Interpretation Comments Hemoglobin (test code = 88240-3) 12.0 12.0-16.0 [facility] McKinneyHematocrit2018-03-26 08:10:00* Test Item Value Reference Range Interpretation Comments Hematocrit (test code = 4544-3) 36.0 34.2-44.1 [facility]neyMean Corpuscular Rltkjf4117-02-55 08:10:00* Test Item Value Reference Range Interpretation Comments Mean Corpuscular Volume (test code = 787-2) 88.7 81-99 [facility]neyMean Corpuscular Muzgdnrhce9455-00-33 08:10:00* Test Item Value Reference Range Interpretation Comments Mean Corpuscular Hemoglobin (test code = 785-6) 29.6 28-32 [facility] McKinneyMean Corpuscular Hemoglobin Concent 2017-08-24 08:10:00* Test Item Value Reference Range Interpretation Comments Mean Corpuscular Hemoglobin Concent (test code = 786-4) 33.3 31-35 [facility] McKinneyRed Cell Distribution Liobs7486-69-04 08:10:00* Test Item Value Reference Range Interpretation Comments Red Cell Distribution Width (test code = 96427-7) 13.3 11.7 -14.4 [facility] McKinneyPlatelet Xzkth2525-58-40 08:10:00* Test Item Value Reference Range Interpretation Comments Platelet Count (test code = 777-3) 282 140-360 [facility] McKinneyNeutrophils (%) (Auto)2017-08-24 08:10:00 * Test Item Value Reference Range Interpretation Comments Neutrophils (%) (Auto) (test code = 73852-5) 74.9 38.7-80.0 [facility] McKinneyLymphocytes (%) (Auto)2017-08-24 08:10:00 * Test Item Value Reference Range Interpretation Comments Lymphocytes (%) (Auto) (test code = 736-9) 17.2 18.0-39.1 L [facility]neyMonocytes (%) (Auto)2017-08-24 08:10:00* Test Item Value Reference Range Interpretation Comments Monocytes (%) (Auto) (test code = 5905-5) 4.7 4.4-11.3 [facility]neyEosinophils (%) (Auto)2017-08-24 08:10:00 * Test Item Value Reference Range Interpretation Comments Eosinophils (%) (Auto) (test code = 713-8) 2.3 0.0-6.0 [facility]neyBasophils (%) (Auto)2017-08-24 08:10:00* Test Item Value Reference Range Interpretation Comments Basophils (%) (Auto) (test code = 706-2) 0.4 0.0-1.0 [facility]neyIM GRANULOCYTES %2017-08-24 08:10:00* Test Item Value Reference Range Interpretation Comments IM GRANULOCYTES % (test code = IM GRANULOCYTES %) 0.5 0.0- 1.0 [facility]neyNeutrophils # (Auto)2017-08-24 08:10:00* Test Item Value Reference Range Interpretation Comments Neutrophils # (Auto) (test code = 751-8) 6.9 2.1-6.9 [facility] McKinneyLymphocytes # (Auto)2017-08-24 08:10:00* Test Item Value Reference Range Interpretation Comments Lymphocytes # (Auto) (test code = 61817-7) 1.6 1.0-3.2 [facility]neyMonocytes # (Auto)2017-08-24 08:10:00* Test Item Value Reference Range Interpretation Comments Monocytes # (Auto) (test code = 742-7) 0.4 0.2-0.8 [facility]neyEosinophils # (Auto)2017-08-24 08:10:00* Test Item Value Reference Range Interpretation Comments Eosinophils # (Auto) (test code = 711-2) 0.2 0.0-0.4 [facility]neyBasophils # (Auto)2017-08-24 08:10:00* Test Item Value Reference Range Interpretation Comments Basophils # (Auto) (test code = 704-7) 0.0 0.0-0.1 [facility] McKinneyAbsolute Immature Granulocyte (auto 2017-08-24 08:10:00* Test Item Value Reference Range Interpretation Comments Absolute Immature Granulocyte (auto (alexa t code = Absolute Immature Granulocyte (auto) 0.05 0-0.1 [facility] McKinneyBlood Djtgcaf5431-98-50 13:18:00* Test Item Value Reference Range Interpretation Comments Blood Culture (test code = 82587127) NO GROWTH AFTER 72 HOURS [facility] McKinneyUrine NDV9438-06-67 12:10:00* Test Item Value Reference Range Interpretation Comments Urine WBC (test code = 5821-4) NONE 0-5 [facility] McKinneyUrine AEF1551-47-59 12:10:00* Test Item Value Reference Range Interpretation Comments Urine RBC (test code = 08211-5) NONE 0-5 [facility]neyUrine Avdmrxlj2219-71-29 12:10:00* Test Item Value Reference Range Interpretation Comments Urine Bacteria (test code = 53984-0) NONE NONE [facility]neyUrine Epithelial Skaxh9424-86-82 12:10:00 * Test Item Value Reference Range Interpretation Comments Urine Epithelial Cells (test code = 71291-5) MODERATE NONE [facility]neyUrine Wfdqr9654-55-74 12:03:00* Test Item Value Reference Range Interpretation Comments Urine Color (test code = 5778-6) YELLOW YELLOW [facility]neyUrine Smfltaq2717-59-14 12:03:00* Test Item Value Reference Range Interpretation Comments Urine Clarity (test code = 70104-3) CLEAR CLEAR [facility] McKinneyUrine Specific Olujsar9647-36-15 12:03:00 * Test Item Value Reference Range Interpretation Comments Urine Specific Central (test code = 5811-5) 1.015 1.010-1.02 5 [facility]neyUrine vT3331-40-13 12:03:00* Test Item Value Reference Range Interpretation Comments Urine pH (test code = 08820-7) 6 5-7 [facility]neyUrine Leukocyte Oqbchfhi7482-77-21 12:03:00* Test Item Value Reference Range Interpretation Comments Urine Leukocyte Esterase (test code = 5799-2) NEGATIVE NEGATIVE [facility] Uihxuwi7795-34-15 12:03:00* Test Item Value Reference Range Interpretation Comments Urine Nitrite (test code = 37046-7) NEGATIVE NEGATIVE [facility]neyUrine Elsvebs6552-06-72 12:03:00* Test Item Value Reference Range Interpretation Comments Urine Protein (test code = 5804-0) NEGATIVE NEGATIVE [facility]neyUrine Glucose (UA)2017-08-23 12:03:00* Test Item Value Reference Range Interpretation Comments Urine Glucose (UA) (test code = 2349-9) NEGATIVE NEGATIVE [facility]neyUrine Xxzyxpw7041-68-08 12:03:00* Test Item Value Reference Range Interpretation Comments Urine Ketones (test code = 21838-3) NEGATIVE NEGATIVE [facility]neyUrine Yogzpwmoiglb3836-26-45 12:03:00* Test Item Value Reference Range Interpretation Comments Urine Urobilinogen (test code = 47472-5) 0.2 0.2-1 [facility]neyUrine Zrsqfmejx9088-33-58 12:03:00* Test Item Value Reference Range Interpretation Comments Urine Bilirubin (test code = 1978-6) NEGATIVE NEGATIVE [facility] McKinneyUrine Ardoo8978-95-99 12:03:00* Test Item Value Reference Range Interpretation Comments Urine Blood (test code = 74818-7) NEGATIVE NEGATIVE [facility] McKinneyAmylase Kcnnu8166-68-11 07:49:00* Test Item Value Reference Range Interpretation Comments Amylase Level (test code = 1798-8) 51 25-125 [facility] McKinneyLipase2018-03-24 07:49:00* Test Item Value Reference Range Interpretation Comments Lipase (test code = 3040-3) 22 8-78 [facility] McKinneyAmylase Rysvb1388-88-83 07:49:00* Test Item Value Reference Range Interpretation Comments Amylase Level (test code = 1798-8) 51 25-125 [facility] McKinneyAmylase Kgksq4730-14-64 07:49:00* Test Item Value Reference Range Interpretation Comments Amylase Level (test code = 1798-8) 51 25-125 [facility] McKinneyDirect Swvkqvfei4565-68-02 08:06:00* Test Item Value Reference Range Interpretation Comments Direct Bilirubin (test code = 62341-6) 0.1 0.0-0.5 [facility] Mvttpdenr6608-40-88 08:06:00* Test Item Value Reference Range Interpretation Comments Direct Bilirubin (test code = 83111-5) 0.1 0.0-0.5 [facility] Wyyyrrkab7841-18-00 08:06:00* Test Item Value Reference Range Interpretation Comments Direct Bilirubin (test code = 30162-3) 0.1 0.0-0.5 [facility] Teruphzql0675-82-07 08:06:00* Test Item Value Reference Range Interpretation Comments Direct Bilirubin (test code = 23033-3) 0.1 0.0-0.5 [facility] Uzbnfuziy1440-77-03 08:06:00* Test Item Value Reference Range Interpretation Comments Direct Bilirubin (test code = 67691-8) 0.1 0.0-0.5 [facility] Mcewegrwk7780-27-52 08:06:00* Test Item Value Reference Range Interpretation Comments Direct Bilirubin (test code = 92332-9) 0.1 0.0-0.5 [facility] Iqmsyzwgy0935-84-80 08:06:00* Test Item Value Reference Range Interpretation Comments Direct Bilirubin (test code = 06177-0) 0.1 0.0-0.5 [facility] Opnzyqxcx4055-13-53 08:06:00* Test Item Value Reference Range Interpretation Comments Direct Bilirubin (test code = 93971-8) 0.1 0.0-0.5 [facility] Ianjmlwtu7847-24-98 08:06:00* Test Item Value Reference Range Interpretation Comments Direct Bilirubin (test code = 01281-7) 0.1 0.0-0.5 [facility] Dtgluxjpu7644-79-31 08:06:00* Test Item Value Reference Range Interpretation Comments Direct Bilirubin (test code = 82017-6) 0.1 0.0-0.5 [facility] Yotitesau5998-28-26 08:06:00* Test Item Value Reference Range Interpretation Comments Direct Bilirubin (test code = 32611-5) 0.1 0.0-0.5 [facility]neyTriglycerides Imuvo7401-43-63 15:56:00* Test Item Value Reference Range Interpretation Comments Triglycerides Level (test code = 2571-8) 113 0-149 [facility] McKinneyCholesterol Hoqwt1477-28-90 15:56:00* Test Item Value Reference Range Interpretation Comments Cholesterol Level (test code = 2093-3) 227 0-199 H Less than 200 mg/dL Low Txhb429 - 239 mg/dL Borderline Hgkd230 m g/dl and greater High Risk [facility] McKinneyLDL Vsozctihemm6203-19-81 15:56:00* Test Item Value Reference Range Interpretation Comments LDL Cholesterol (test code = 2089-1) 141 60-130 H [facility] Ejixdyzalnm0131-92-42 15:56:00* Test Item Value Reference Range Interpretation Comments HDL Cholesterol (test code = 2085-9) 63 40-60 H [facility] McKinneyCholesterol/HDL Dkcbj9912-57-06 15:56:00 * Test Item Value Reference Range Interpretation Comments Cholesterol/HDL Ratio (test code = 9830-1) 3.6 3.0-3.6 [facility]neyTriglycerides Swvba9016-11-74 15:56:00* Test Item Value Reference Range Interpretation Comments Triglycerides Level (test code = 2571-8) 113 0-149 [facility]neyCholesterol Wsvhb7444-15-68 15:56:00* Test Item Value Reference Range Interpretation Comments Cholesterol Level (test code = 2093-3) 227 0-199 H Less than 200 mg/dL Low Jegv440 - 239 mg/dL Borderline Dytl543 m g/dl and greater High Risk [facility] McKinneyLDL Rmvizjmuial0481-51-47 15:56:00* Test Item Value Reference Range Interpretation Comments LDL Cholesterol (test code = 2089-1) 141 60-130 [facility] Plqvdrrquqs5140-47-27 15:56:00* Test Item Value Reference Range Interpretation Comments HDL Cholesterol (test code = 2085-9) 63 40-60 H [facility]neyCholesterol/HDL Pldoy7968-86-82 15:56:00 * Test Item Value Reference Range Interpretation Comments Cholesterol/HDL Ratio (test code = 9830-1) 3.6 3.0-3.6 [facility]neyTriglycerides Xbwfl9583-00-01 15:56:00* Test Item Value Reference Range Interpretation Comments Triglycerides Level (test code = 2571-8) 113 0-149 [facility]neyCholesterol Tquso7576-85-15 15:56:00* Test Item Value Reference Range Interpretation Comments Cholesterol Level (test code = 2093-3) 227 0-199 H Less than 200 mg/dL Low Ksvw532 - 239 mg/dL Borderline Jahk799 m g/dl and greater High Risk [facility]neyLDL Bvdvanqlnlh5597-39-29 15:56:00* Test Item Value Reference Range Interpretation Comments LDL Cholesterol (test code = 2089-1) 141 60-130 H [facility]neyHDL Xjhvzpmmlzg5434-57-33 15:56:00* Test Item Value Reference Range Interpretation Comments HDL Cholesterol (test code = 2085-9) 63 40-60 H [facility]neyCholesterol/HDL Nntoz4903-60-52 15:56:00 * Test Item Value Reference Range Interpretation Comments Cholesterol/HDL Ratio (test code = 9830-1) 3.6 3.0-3.6 [facility]neyTriglycerides Mkknl5541-86-26 15:56:00* Test Item Value Reference Range Interpretation Comments Triglycerides Level (test code = 2571-8) 113 0-149 [facility]neyCholesterol Lstpp4974-57-21 15:56:00* Test Item Value Reference Range Interpretation Comments Cholesterol Level (test code = 2093-3) 227 0-199 H Less than 200 mg/dL Low Nbml560 - 239 mg/dL Borderline Bbds944 m g/dl and greater High Risk [facility]neyLDL Icbfllcwoej4927-24-78 15:56:00* Test Item Value Reference Range Interpretation Comments LDL Cholesterol (test code = 2089-1) 141 60-130 [facility] Gjbpslxfxkn0238-58-69 15:56:00* Test Item Value Reference Range Interpretation Comments HDL Cholesterol (test code = 2085-9) 63 40-60 H [facility]neyCh[facility]/HDL Ddgfo4886-17-08 15:56:00 * Test Item Value Reference Range Interpretation Comments Cholesterol/HDL Ratio (test code = 9830-1) 3.6 3.0-3.6 [facility]neyTriglycerides Yiefz2265-60-49 15:56:00* Test Item Value Reference Range Interpretation Comments Triglycerides Level (test code = 2571-8) 113 0-149 [facility]neyCholesterol Khotf5926-46-05 15:56:00* Test Item Value Reference Range Interpretation Comments Cholesterol Level (test code = 2093-3) 227 0-199 H Less than 200 mg/dL Low Lthe276 - 239 mg/dL Borderline Qchs347 m g/dl and greater High Risk [facility]neyLDL Oykfyovvvro6946-72-25 15:56:00* Test Item Value Reference Range Interpretation Comments LDL Cholesterol (test code = 2089-1) 141 60-130 [facility] Tcekaoycxsr2274-79-71 15:56:00* Test Item Value Reference Range Interpretation Comments HDL Cholesterol (test code = 2085-9) 63 40-60 H [facility]neyCh[facility]/HDL Fblzg9517-42-72 15:56:00 * Test Item Value Reference Range Interpretation Comments Cholesterol/HDL Ratio (test code = 9830-1) 3.6 3.0-3.6 [facility]neyTriglycerides Eqqda6177-00-05 15:56:00* Test Item Value Reference Range Interpretation Comments Triglycerides Level (test code = 2571-8) 113 0-149 [facility]neyCholesterol Rpyoa0698-20-87 15:56:00* Test Item Value Reference Range Interpretation Comments Cholesterol Level (test code = 2093-3) 227 0-199 H Less than 200 mg/dL Low Hadv399 - 239 mg/dL Borderline Zayp061 m g/dl and greater High Risk [facility]neyLDL Xwdjwiitbqj0831-13-22 15:56:00* Test Item Value Reference Range Interpretation Comments LDL Cholesterol (test code = 2089-1) 141 60-130 [facility] Reqxxwzrdnv5114-72-07 15:56:00* Test Item Value Reference Range Interpretation Comments HDL Cholesterol (test code = 2085-9) 63 40-60 H [facility]neyCh[facility]/HDL Uhsjz4237-18-84 15:56:00 * Test Item Value Reference Range Interpretation Comments Cholesterol/HDL Ratio (test code = 9830-1) 3.6 3.0-3.6 [facility]neyTriglycerides Szxjs1274-36-44 15:56:00* Test Item Value Reference Range Interpretation Comments Triglycerides Level (test code = 2571-8) 113 0-149 [facility]neyCholesterol Wgcoy1504-50-15 15:56:00* Test Item Value Reference Range Interpretation Comments Cholesterol Level (test code = 2093-3) 227 0-199 H Less than 200 mg/dL Low Warj247 - 239 mg/dL Borderline Ckms087 m g/dl and greater High Risk [facility]neyLDL Riyokarkvuv6494-97-41 15:56:00* Test Item Value Reference Range Interpretation Comments LDL Cholesterol (test code = 2089-1) 141 60-130 [facility] Flhbcabfirs1263-35-60 15:56:00* Test Item Value Reference Range Interpretation Comments HDL Cholesterol (test code = 2085-9) 63 40-60 H [facility]Ch[facility]/HDL Ndcfk0868-71-81 15:56:00 * Test Item Value Reference Range Interpretation Comments Cholesterol/HDL Ratio (test code = 9830-1) 3.6 3.0-3.6 [facility]neyTriglycerides Rxqte2133-11-73 15:56:00* Test Item Value Reference Range Interpretation Comments Triglycerides Level (test code = 2571-8) 113 0-149 [facility]neyCholesterol Dsguq6677-77-40 15:56:00* Test Item Value Reference Range Interpretation Comments Cholesterol Level (test code = 2093-3) 227 0-199 H Less than 200 mg/dL Low Asfh105 - 239 mg/dL Borderline Bzkg496 m g/dl and greater High Risk [facility]neyLDL Oclugqrcdqh2625-33-48 15:56:00* Test Item Value Reference Range Interpretation Comments LDL Cholesterol (test code = 2089-1) 141 60-130 [facility] Jhqjoqrgsyt2147-39-31 15:56:00* Test Item Value Reference Range Interpretation Comments HDL Cholesterol (test code = 2085-9) 63 40-60 H [facility]neyCh[facility]/HDL Vdyzb9255-52-47 15:56:00 * Test Item Value Reference Range Interpretation Comments Cholesterol/HDL Ratio (test code = 9830-1) 3.6 3.0-3.6 [facility]neyTriglycerides Ajgui4472-18-52 15:56:00* Test Item Value Reference Range Interpretation Comments Triglycerides Level (test code = 2571-8) 113 0-149 [facility]neyCholesterol Llbom7841-75-90 15:56:00* Test Item Value Reference Range Interpretation Comments Cholesterol Level (test code = 2093-3) 227 0-199 H Less than 200 mg/dL Low Afsr259 - 239 mg/dL Borderline Rgky682 m g/dl and greater High Risk [facility]neyLDL Ncnuyptdtjq2827-50-71 15:56:00* Test Item Value Reference Range Interpretation Comments LDL Cholesterol (test code = 2089-1) 141 60-130 [facility] Exzyrsxzeqj4147-35-44 15:56:00* Test Item Value Reference Range Interpretation Comments HDL Cholesterol (test code = 2085-9) 63 40-60 H [facility]Ch[facility]/HDL Xsudl6316-95-65 15:56:00 * Test Item Value Reference Range Interpretation Comments Cholesterol/HDL Ratio (test code = 9830-1) 3.6 3.0-3.6 [facility]neyTriglycerides Rkmxv8928-18-83 15:56:00* Test Item Value Reference Range Interpretation Comments Triglycerides Level (test code = 2571-8) 113 0-149 [facility]neyCholesterol Epxes5312-76-48 15:56:00* Test Item Value Reference Range Interpretation Comments Cholesterol Level (test code = 2093-3) 227 0-199 H Less than 200 mg/dL Low Acwu073 - 239 mg/dL Borderline Hblf108 m g/dl and greater High Risk [facility]neyLDL Iotelqelvho5970-98-25 15:56:00* Test Item Value Reference Range Interpretation Comments LDL Cholesterol (test code = 2089-1) 141 60-130 [facility] Jrjopbypuxp4154-92-73 15:56:00* Test Item Value Reference Range Interpretation Comments HDL Cholesterol (test code = 2085-9) 63 40-60 H [facility]Ch[facility]/HDL Krcna1236-97-17 15:56:00 * Test Item Value Reference Range Interpretation Comments Cholesterol/HDL Ratio (test code = 9830-1) 3.6 3.0-3.6 [facility]neyTriglycerides Axbuf2405-69-33 15:56:00* Test Item Value Reference Range Interpretation Comments Triglycerides Level (test code = 2571-8) 113 0-149 [facility]neyCh[facility] Kmyej1115-58-32 15:56:00* Test Item Value Reference Range Interpretation Comments Cholesterol Level (test code = 2093-3) 227 0-199 H Less than 200 mg/dL Low Woiq260 - 239 mg/dL Borderline Kmhx801 m g/dl and greater High Risk [facility]neyLDL Zpgcsnbzcjv0620-95-85 15:56:00* Test Item Value Reference Range Interpretation Comments LDL Cholesterol (test code = 2089-1) 141 60-130 [facility]L Rsydxmtbmjq6760-65-25 15:56:00* Test Item Value Reference Range Interpretation Comments HDL Cholesterol (test code = 2085-9) 63 40-60 H [facility]Ch[facility]/HDL Igwee7613-17-12 15:56:00 * Test Item Value Reference Range Interpretation Comments Cholesterol/HDL Ratio (test code = 9830-1) 3.6 3.0-3.6 [facility]neyHemoglobin A1c Bwcicqf6727-92-64 15:51:00 * Test Item Value Reference Range Interpretation Comments Hemoglobin A1c Percent (test code = Hemoglobin A1c Percent) 4.9 4.0-7.0 [facility]neyHemoglobin A1c Gpwlllj5981-40-99 15:51:00 * Test Item Value Reference Range Interpretation Comments Hemoglobin A1c Percent (test code = Hemoglobin A1c Percent) 4.9 4.0-7.0 [facility]neyHemoglobin A1c Ovlmmeu7899-77-43 15:51:00 * Test Item Value Reference Range Interpretation Comments Hemoglobin A1c Percent (test code = Hemoglobin A1c Percent) 4.9 4.0-7.0 [facility]neyHemoglobin A1c Hnsiwug3082-70-93 15:51:00 * Test Item Value Reference Range Interpretation Comments Hemoglobin A1c Percent (test code = Hemoglobin A1c Percent) 4.9 4.0-7.0 [facility]neyHemoglobin A1c Huhfmpe2332-00-62 15:51:00 * Test Item Value Reference Range Interpretation Comments Hemoglobin A1c Percent (test code = Hemoglobin A1c Percent) 4.9 4.0-7.0 [facility]neyHemoglobin A1c Dbhzeyg1317-24-73 15:51:00 * Test Item Value Reference Range Interpretation Comments Hemoglobin A1c Percent (test code = Hemoglobin A1c Percent) 4.9 4.0-7.0 [facility]neyHemoglobin A1c Mcyxzyx0877-87-89 15:51:00 * Test Item Value Reference Range Interpretation Comments Hemoglobin A1c Percent (test code = Hemoglobin A1c Percent) 4.9 4.0-7.0 [facility]neyHemoglobin A1c Lnycnve4855-99-98 15:51:00 * Test Item Value Reference Range Interpretation Comments Hemoglobin A1c Percent (test code = Hemoglobin A1c Percent) 4.9 4.0-7.0 [facility]neyHemoglobin A1c Vwcrutm3177-87-69 15:51:00 * Test Item Value Reference Range Interpretation Comments Hemoglobin A1c Percent (test code = Hemoglobin A1c Percent) 4.9 4.0-7.0 [facility]neyHemoglobin A1c Mnhbhlx7468-32-42 15:51:00 * Test Item Value Reference Range Interpretation Comments Hemoglobin A1c Percent (test code = Hemoglobin A1c Percent) 4.9 4.0-7.0 [facility]neyHemoglobin A1c Senqnih2734-76-78 15:51:00 * Test Item Value Reference Range Interpretation Comments Hemoglobin A1c Percent (test code = Hemoglobin A1c Percent) 4.9 4.0-7.0 [facility] McKinneyUrine GBB9946-92-92 09:46:00* Test Item Value Reference Range Interpretation Comments Urine WBC (test code = 5821-4) 0-5 0-5 [facility] McKinneyUrine ZMJ1271-27-19 09:46:00* Test Item Value Reference Range Interpretation Comments Urine RBC (test code = 78131-5) NONE 0-5 [facility]neyUrine Pohvhoye5635-78-62 09:46:00* Test Item Value Reference Range Interpretation Comments Urine Bacteria (test code = 27307-5) NONE NONE [facility]neyUrine Epithelial Hmkoq7461-14-17 09:46:00 * Test Item Value Reference Range Interpretation Comments Urine Epithelial Cells (test code = 82946-3) RARE NONE [facility]neyUrine Transitional Epithelial Cells 2017-08-05 09:46:00* Test Item Value Reference Range Interpretation Comments Urine Transitional Epithelial Cells (test code = 8249-5) RARE NONE [facility] Trans[facility] Epithelial [facility] 2017-08-05 09:46:00* Test Item Value Reference Range Interpretation Comments Urine Transitional Epithelial Cells (test code = 8249-5) RARE NONE [facility] Transitional Epithelial Cells 2017-08-05 09:46:00* Test Item Value Reference Range Interpretation Comments Urine Transitional Epithelial Cells (test code = 8249-5) RARE NONE [facility] Transitional Epithelial Cells 2017-08-05 09:46:00* Test Item Value Reference Range Interpretation Comments Urine Transitional Epithelial Cells (test code = 8249-5) RARE NONE [facility] Transitional Epithelial Cells 2017-08-05 09:46:00* Test Item Value Reference Range Interpretation Comments Urine Transitional Epithelial Cells (test code = 8249-5) RARE NONE [facility] Transitional Epithelial Cells 2017-08-05 09:46:00* Test Item Value Reference Range Interpretation Comments Urine Transitional Epithelial Cells (test code = 8249-5) RARE NONE [facility] Transitional Epithelial Cells 2017-08-05 09:46:00* Test Item Value Reference Range Interpretation Comments Urine Transitional Epithelial Cells (test code = 8249-5) RARE NONE [facility] Transitional Epithelial Cells 2017-08-05 09:46:00* Test Item Value Reference Range Interpretation Comments Urine Transitional Epithelial Cells (test code = 8249-5) RARE NONE [facility] Transitional Epithelial Cells 2017-08-05 09:46:00* Test Item Value Reference Range Interpretation Comments Urine Transitional Epithelial Cells (test code = 8249-5) RARE NONE [facility] South[facility]rine Transitional Epithelial Cells 2017-08-05 09:46:00* Test Item Value Reference Range Interpretation Comments Urine Transitional Epithelial Cells (test code = 8249-5) RARE NONE [facility]odium Stalh2468-93-60 09:44:00* Test Item Value Reference Range Interpretation Comments Sodium Level (test code = 2951-2) 140 136-145 [facility]neyPotassium Rbzjq0018-26-40 09:44:00* Test Item Value Reference Range Interpretation Comments Potassium Level (test code = 2823-3) 3.5 3.5-5.1 [facility] McKinneyChloride Hpgaf3920-20-62 09:44:00* Test Item Value Reference Range Interpretation Comments Chloride Level (test code = 2075-0) 110 98-107 H [facility] McKinneyCarbon Dioxide Yhrco4235-54-44 09:44:00* Test Item Value Reference Range Interpretation Comments Carbon Dioxide Level (test code = 2028-9) 20 22-29 L [facility] McKinneyAnion Kcm6126-80-55 09:44:00* Test Item Value Reference Range Interpretation Comments Anion Gap (test code = 04528-1) 13.5 8-16 [facility] McKinneyBlood Urea Zxqyornd7322-04-50 09:44:00* Test Item Value Reference Range Interpretation Comments Blood Urea Nitrogen (test code = 3094-0) 12 12-24 [facility] McKinneyCreatinine2018-03-07 09:44:00* Test Item Value Reference Range Interpretation Comments Creatinine (test code = 2160-0) 0.89 0.57-1.11 [facility] McKinneyBUN/Creatinine Snfhh6963-49-44 09:44:00* Test Item Value Reference Range Interpretation Comments BUN/Creatinine Ratio (test code = 3097-3) 13 11-23 [facility] McKinneyEstimat Glomerular Filtration Rate 2017-08-05 09:44:00* Test Item Value Reference Range Interpretation Comments Estimat Glomerular Filtration Rate (test code = 66995-0) 60- >60 Ranges were taken from the National Kidney Disease Education Program and the [facility] Foundation literature.Reference ranges:60 or greater: Lkiyvo20-31 ( for 3 consecutive months): Chronic kidney disease 15 or less: Kidney failureB[facility] – McKinneyGlucose Vnegr8962-90-07 09:44:00* Test Item Value Reference Range Interpretation Comments Glucose Level (test code = RVM8301) 86 74-118 [facility] McKinneyCalcium Qsysk6765-23-69 09:44:00* Test Item Value Reference Range Interpretation Comments Calcium Level (test code = 19783-1) 8.5 8.4-10.2 [facility] McKinneyUrine Kkchd8574-85-43 09:31:00* Test Item Value Reference Range Interpretation Comments Urine Color (test code = 5778-6) YELLOW YELLOW [facility] McKinneyUrine Xienkuq5431-01-65 09:31:00* Test Item Value Reference Range Interpretation Comments Urine Clarity (test code = 59171-0) CLEAR CLEAR [facility] McKinneyUrine Specific Pcvtbqx3513-42-42 09:31:00 * Test Item Value Reference Range Interpretation Comments Urine Specific Central (test code = 5811-5) 1.015 1.010-1.02 5 [facility] McKinneyUrine qG3496-81-95 09:31:00* Test Item Value Reference Range Interpretation Comments Urine pH (test code = 57200-3) 6 5-7 [facility] McKinneyUrine Leukocyte Mxckjfkr9797-56-83 09:31:00* Test Item Value Reference Range Interpretation Comments Urine Leukocyte Esterase (test code = 5799-2) NEGATIVE NEGATIVE [facility] McKinneyUrine Ueeazqg7126-08-32 09:31:00* Test Item Value Reference Range Interpretation Comments Urine Nitrite (test code = 67712-8) NEGATIVE NEGATIVE [facility] McKinneyUrine Xwfsiho0035-70-49 09:31:00* Test Item Value Reference Range Interpretation Comments Urine Protein (test code = 5804-0) NEGATIVE NEGATIVE [facility] McKinneyUrine Glucose (UA)2017-08-05 09:31:00* Test Item Value Reference Range Interpretation Comments Urine Glucose (UA) (test code = 2349-9) NEGATIVE NEGATIVE [facility] McKinneyUrine Sjkbgyv4542-43-99 09:31:00* Test Item Value Reference Range Interpretation Comments Urine Ketones (test code = 72458-8) NEGATIVE NEGATIVE [facility] McKinneyUrine Samdgzgedhgn3737-45-56 09:31:00* Test Item Value Reference Range Interpretation Comments Urine Urobilinogen (test code = 98576-6) 0.2 0.2-1 [facility] McKinneyUrine Tqebqsedq7764-53-85 09:31:00* Test Item Value Reference Range Interpretation Comments Urine Bilirubin (test code = 1978-6) NEGATIVE NEGATIVE [facility] McKinneyUrine Rwrqx4731-90-83 09:31:00* Test Item Value Reference Range Interpretation Comments Urine Blood (test code = 55161-3) NEGATIVE NEGATIVE [facility] McKinneyWhite Blood Wszbw6772-80-96 09:26:00* Test Item Value Reference Range Interpretation Comments White Blood Count (test code = 6690-2) 5.52 4.8-10.8 [facility] McKinneyRed Blood Ilhef3553-02-66 09:26:00* Test Item Value Reference Range Interpretation Comments Red Blood Count (test code = 789-8) 4.29 3.6-5.1 [facility] McKinneyHemoglobin2018-03-07 09:26:00* Test Item Value Reference Range Interpretation Comments Hemoglobin (test code = 26843-3) 12.8 12.0-16.0 [facility] McKinneyHematocrit2018-03-07 09:26:00* Test Item Value Reference Range Interpretation Comments Hematocrit (test code = 4544-3) 37.8 34.2-44.1 [facility] McKinneyMean Corpuscular Yxysgm6802-36-82 09:26:00* Test Item Value Reference Range Interpretation Comments Mean Corpuscular Volume (test code = 787-2) 88.1 81-99 [facility] McKinneyMean Corpuscular Youmsbnjtx2874-96-95 09:26:00* Test Item Value Reference Range Interpretation Comments Mean Corpuscular Hemoglobin (test code = 785-6) 29.8 28-32 [facility] McKinneyMean Corpuscular Hemoglobin Concent 2017-08-05 09:26:00* Test Item Value Reference Range Interpretation Comments Mean Corpuscular Hemoglobin Concent (test code = 786-4) 33.9 31-35 [facility] McKinneyRed Cell Distribution Piwyo4394-10-32 09:26:00* Test Item Value Reference Range Interpretation Comments Red Cell Distribution Width (test code = 05348-3) 13.3 11.7 -14.4 [facility] McKinneyPlatelet Iwesc8146-73-72 09:26:00* Test Item Value Reference Range Interpretation Comments Platelet Count (test code = 777-3) 249 140-360 [facility] McKinneyNeutrophils (%) (Auto)2017-08-05 09:26:00 * Test Item Value Reference Range Interpretation Comments Neutrophils (%) (Auto) (test code = 53749-2) 61.6 38.7-80.0 [facility] McKinneyLymphocytes (%) (Auto)2017-08-05 09:26:00 * Test Item Value Reference Range Interpretation Comments Lymphocytes (%) (Auto) (test code = 736-9) 27.7 18.0-39.1 [facility]neyMonocytes (%) (Auto)2017-08-05 09:26:00* Test Item Value Reference Range Interpretation Comments Monocytes (%) (Auto) (test code = 5905-5) 7.4 4.4-11.3 [facility]neyEosinophils (%) (Auto)2017-08-05 09:26:00 * Test Item Value Reference Range Interpretation Comments Eosinophils (%) (Auto) (test code = 713-8) 2.4 0.0-6.0 [facility]neyBasophils (%) (Auto)2017-08-05 09:26:00* Test Item Value Reference Range Interpretation Comments Basophils (%) (Auto) (test code = 706-2) 0.5 0.0-1.0 [facility] McKinneyIM GRANULOCYTES %2017-08-05 09:26:00* Test Item Value Reference Range Interpretation Comments IM GRANULOCYTES % (test code = IM GRANULOCYTES %) 0.4 0.0- 1.0 [facility] McKinneyNeutrophils # (Auto)2017-08-05 09:26:00* Test Item Value Reference Range Interpretation Comments Neutrophils # (Auto) (test code = 751-8) 3.4 2.1-6.9 [facility] McKinneyLymphocytes # (Auto)2017-08-05 09:26:00* Test Item Value Reference Range Interpretation Comments Lymphocytes # (Auto) (test code = 53132-7) 1.5 1.0-3.2 [facility] McKinneyMonocytes # (Auto)2017-08-05 09:26:00* Test Item Value Reference Range Interpretation Comments Monocytes # (Auto) (test code = 742-7) 0.4 0.2-0.8 [facility] [place]Eosinophils # (Auto)2017-08-05 09:26:00* Test Item Value Reference Range Interpretation Comments Eosinophils # (Auto) (test code = 711-2) 0.1 0.0-0.4 [facility]neyBasophils # (Auto)2017-08-05 09:26:00* Test Item Value Reference Range Interpretation Comments Basophils # (Auto) (test code = 704-7) 0.0 0.0-0.1 [facility] McKinneyAbsolute Immature Granulocyte (auto 2017-08-05 09:26:00* Test Item Value Reference Range Interpretation Comments Absolute Immature Granulocyte (auto (alexa t code = Absolute Immature Granulocyte (auto) 0.02 0-0.1 [facility] McKinneyUrine [id number] 09:53:00* Test Item Value Reference Range Interpretation Comments Urine WBC (test code = 5821-4) 6-10 0-5 H [facility] McKinneyUrine [id number] 09:53:00* Test Item Value Reference Range Interpretation Comments Urine RBC (test code = 50979-0) 0-5 0-5 [facility] McKinneyUrine Hexknhib2889-92-34 09:53:00* Test Item Value Reference Range Interpretation Comments Urine Bacteria (test code = 32800-7) MANY NONE H [facility] McKinneyUrine Epithelial Jwevj7583-62-18 09:53:00 * Test Item Value Reference Range Interpretation Comments Urine Epithelial Cells (test code = 44870-1) FEW NONE [facility] McKinneyUrine Transitional Epithelial Cells 2017-07-30 09:53:00* Test Item Value Reference Range Interpretation Comments Urine Transitional Epithelial Cells (test code = 8249-5) FEW NONE H [facility] McKinneyUrine Arhhf4725-81-93 09:45:00* Test Item Value Reference Range Interpretation Comments Urine Color (test code = 5778-6) YELLOW YELLOW [facility] McKinneyUrine Svjyvik0659-90-64 09:45:00* Test Item Value Reference Range Interpretation Comments Urine Clarity (test code = 78938-0) CLOUDY CLEAR H [facility] McKinneyUrine Specific Pyxxhbq4187-98-09 09:45:00 * Test Item Value Reference Range Interpretation Comments Urine Specific Central (test code = 5811-5) 1.020 1.010-1.02 5 [facility] McKinneyUrine [id number] 09:45:00* Test Item Value Reference Range Interpretation Comments Urine pH (test code = 01896-8) 6 5-7 [facility] [place]neyUrine Leukocyte Gbvluueo9089-33-03 09:45:00* Test Item Value Reference Range Interpretation Comments Urine Leukocyte Esterase (test code = 5799-2) NEGATIVE NEGATIVE [facility] [place]neyUrine Pgcajkx7599-99-73 09:45:00* Test Item Value Reference Range Interpretation Comments Urine Nitrite (test code = 08813-1) POSITIVE NEGATIVE H [facility] McKinneyUrine Sdvlzgj1524-69-04 09:45:00* Test Item Value Reference Range Interpretation Comments Urine Protein (test code = 5804-0) NEGATIVE NEGATIVE [facility] [place]neyUrine Glucose (UA)2017-07-30 09:45:00* Test Item Value Reference Range Interpretation Comments Urine Glucose (UA) (test code = 2349-9) NEGATIVE NEGATIVE [facility] [place]neyUrine Tfchnzo5301-40-03 09:45:00* Test Item Value Reference Range Interpretation Comments Urine Ketones (test code = 76279-0) NEGATIVE NEGATIVE [facility] [place]neyUrine Kiquqilueseg4230-05-27 09:45:00* Test Item Value Reference Range Interpretation Comments Urine Urobilinogen (test code = 84953-2) 0.2 0.2-1 [facility] [place]neyUrine Npkkdelyr4543-09-56 09:45:00* Test Item Value Reference Range Interpretation Comments Urine Bilirubin (test code = 1978-6) NEGATIVE NEGATIVE [facility] [place]neyUrine Ghlmv1291-12-80 09:45:00* Test Item Value Reference Range Interpretation Comments Urine Blood (test code = 58700-9) NEGATIVE NEGATIVE [facility] McKinneyWhite Blood Rxulg2727-52-70 09:44:00* Test Item Value Reference Range Interpretation Comments White Blood Count (test code = 6690-2) 6.60 4.8-10.8 [facility] McKinneyRed Blood Kuyab7754-94-80 09:44:00* Test Item Value Reference Range Interpretation Comments Red Blood Count (test code = 789-8) 4.19 3.6-5.1 [facility] McKinneyHemoglobin2018-03-01 09:44:00* Test Item Value Reference Range Interpretation Comments Hemoglobin (test code = 97351-9) 12.6 12.0-16.0 [facility] McKinneyHematocrit2018-03-01 09:44:00* Test Item Value Reference Range Interpretation Comments Hematocrit (test code = 4544-3) 36.8 34.2-44.1 [facility] McKinneyMean Corpuscular Bbhqip5519-73-71 09:44:00* Test Item Value Reference Range Interpretation Comments Mean Corpuscular Volume (test code = 787-2) 87.8 81-99 [facility] McKinneyMean Corpuscular Fcrshwkqsq8088-39-71 09:44:00* Test Item Value Reference Range Interpretation Comments Mean Corpuscular Hemoglobin (test code = 785-6) 30.1 28-32 [facility] McKinneyMean Corpuscular Hemoglobin Concent 2017-07-30 09:44:00* Test Item Value Reference Range Interpretation Comments Mean Corpuscular Hemoglobin Concent (test code = 786-4) 34.2 31-35 [facility] McKinneyRed Cell Distribution Odltn8604-81-56 09:44:00* Test Item Value Reference Range Interpretation Comments Red Cell Distribution Width (test code = 03641-6) 13.6 11.7 -14.4 [facility] McKinneyPlatelet Lucbx9702-95-75 09:44:00* Test Item Value Reference Range Interpretation Comments Platelet Count (test code = 777-3) 272 140-360 [facility] McKinneyNeutrophils (%) (Auto)2017-07-30 09:44:00 * Test Item Value Reference Range Interpretation Comments Neutrophils (%) (Auto) (test code = 03343-2) 72.8 38.7-80.0 [facility] McKinneyLymphocytes (%) (Auto)2017-07-30 09:44:00 * Test Item Value Reference Range Interpretation Comments Lymphocytes (%) (Auto) (test code = 736-9) 20.0 18.0-39.1 [facility] McKinneyMonocytes (%) (Auto)2017-07-30 09:44:00* Test Item Value Reference Range Interpretation Comments Monocytes (%) (Auto) (test code = 5905-5) 4.1 4.4-11.3 L [facility] McKinneyEosinophils (%) (Auto)2017-07-30 09:44:00 * Test Item Value Reference Range Interpretation Comments Eosinophils (%) (Auto) (test code = 713-8) 2.3 0.0-6.0 [facility] [place]neyBasophils (%) (Auto)2017-07-30 09:44:00* Test Item Value Reference Range Interpretation Comments Basophils (%) (Auto) (test code = 706-2) 0.6 0.0-1.0 [facility] McKinneyIM GRANULOCYTES %2017-07-30 09:44:00* Test Item Value Reference Range Interpretation Comments IM GRANULOCYTES % (test code = IM GRANULOCYTES %) 0.2 0.0- 1.0 [facility] McKinneyNeutrophils # (Auto)2017-07-30 09:44:00* Test Item Value Reference Range Interpretation Comments Neutrophils # (Auto) (test code = 751-8) 4.8 2.1-6.9 [facility] McKinneyLymphocytes # (Auto)2017-07-30 09:44:00* Test Item Value Reference Range Interpretation Comments Lymphocytes # (Auto) (test code = 92212-0) 1.3 1.0-3.2 [facility] [place]neyMonocytes # (Auto)2017-07-30 09:44:00* Test Item Value Reference Range Interpretation Comments Monocytes # (Auto) (test code = 742-7) 0.3 0.2-0.8 [facility] McKinneyEosinophils # (Auto)2017-07-30 09:44:00* Test Item Value Reference Range Interpretation Comments Eosinophils # (Auto) (test code = 711-2) 0.2 0.0-0.4 [facility] [place]neyBasophils # (Auto)2017-07-30 09:44:00* Test Item Value Reference Range Interpretation Comments Basophils # (Auto) (test code = 704-7) 0.0 0.0-0.1 [facility] McKinneyAbsolute Immature Granulocyte (auto 2017-07-30 09:44:00* Test Item Value Reference Range Interpretation Comments Absolute Immature Granulocyte (auto (alexa t code = Absolute Immature Granulocyte (auto) 0.01 0-0.1 [facility]odium Uyvaf3979-88-50 09:43:00* Test Item Value Reference Range Interpretation Comments Sodium Level (test code = 2951-2) 141 136-145 [facility] McKinneyPotassium Izlyq2794-90-94 09:43:00* Test Item Value Reference Range Interpretation Comments Potassium Level (test code = 2823-3) 3.4 3.5-5.1 L [facility] McKinneyChloride Texay1956-95-93 09:43:00* Test Item Value Reference Range Interpretation Comments Chloride Level (test code = 2075-0) 108 98-107 H [facility] McKinneyCarbon Dioxide Bxech7388-10-80 09:43:00* Test Item Value Reference Range Interpretation Comments Carbon Dioxide Level (test code = 2028-9) 22 22-29 [facility] McKinneyAnion Fce4336-68-64 09:43:00* Test Item Value Reference Range Interpretation Comments Anion Gap (test code = 68717-0) 14.4 8-16 [facility] McKinneyBlood Urea Pazhetsp8601-49-94 09:43:00* Test Item Value Reference Range Interpretation Comments Blood Urea Nitrogen (test code = 3094-0) 8 7-26 [facility] McKinneyCreatinine2018-03-01 09:43:00* Test Item Value Reference Range Interpretation Comments Creatinine (test code = 2160-0) 0.84 0.57-1.11 [facility] McKinneyBUN/Creatinine Hojhi2417-02-90 09:43:00* Test Item Value Reference Range Interpretation Comments BUN/Creatinine Ratio (test code = 3097-3) 10 6-25 [facility] McKinneyEstimat Glomerular Filtration Rate 2017-07-30 09:43:00* Test Item Value Reference Range Interpretation Comments Estimat Glomerular Filtration Rate (test code = 54972-7) 60- >60 Ranges were taken from the National Kidney Disease Education Program and the [facility] Kidney Foundation literature.Reference ranges:60 or greater: Viasfu01-95 ( for 3 consecutive months): Chronic kidney disease 15 or less: Kidney failureBaylor Scott & White Medical Center – McKinneyGlucose Qruox9828-15-18 09:43:00* Test Item Value Reference Range Interpretation Comments Glucose Level (test code = THH5910) 172 74-118 H [facility] McKinneyCalcium Wowlb2102-90-27 09:43:00* Test Item Value Reference Range Interpretation Comments Calcium Level (test code = 11490-8) 8.5 8.4-10.2 [facility] McKinneyTotal Lohcppozx7343-67-61 09:43:00* Test Item Value Reference Range Interpretation Comments Total Bilirubin (test code = 1975-2) 0.3 0.2-1.2 [facility] McKinneyAspartate Amino Transf (AST/SGOT) 2017-07-30 09:43:00* Test Item Value Reference Range Interpretation Comments Aspartate Amino Transf (AST/SGOT) (test code = Aspartate Amino Transf (AST/SGOT)) 12 5-34 [facility] McKinneyAlanine Aminotransferase (ALT/SGPT) 2017-07-30 09:43:00* Test Item Value Reference Range Interpretation Comments Alanine Aminotransferase (ALT/SGPT) (test code = 1742-6) 16 0-55 [facility] McKinneyTotal Xapppqg5502-49-45 09:43:00* Test Item Value Reference Range Interpretation Comments Total Protein (test code = 2885-2) 6.4 6.5-8.1 L [facility] McKinneyAlbumin2018-03-01 09:43:00* Test Item Value Reference Range Interpretation Comments Albumin (test code = 1751-7) 3.4 3.5-5.0 L [facility] McKinneyGlobulin2018-03-01 09:43:00* Test Item Value Reference Range Interpretation Comments Globulin (test code = 86525-6) 3.0 2.3-3.5 [facility] McKinneyAlbumin/Globulin Ihwdc8267-26-68 09:43:00 * Test Item Value Reference Range Interpretation Comments Albumin/Globulin Ratio (test code = 1759-0) 1.1 0.8-2.0 [facility] McKinneyAlkaline Mdogkoxgphw8990-27-02 09:43:00* Test Item Value Reference Range Interpretation Comments Alkaline Phosphatase (test code = 6768-6) 86 40-150 [facility] McKinneyTotal Rlujlnezx2059-42-89 09:43:00* Test Item Value Reference Range Interpretation Comments Total Bilirubin (test code = 1975-2) 0.3 0.2-1.2 [facility] McKinneyAspartate Amino Transf (AST/SGOT) 2017-07-30 09:43:00* Test Item Value Reference Range Interpretation Comments Aspartate Amino Transf (AST/SGOT) (test code = Aspartate Amino Transf (AST/SGOT)) 12 5-34 [facility] McKinneyAlanine Aminotransferase (ALT/SGPT) 2017-07-30 09:43:00* Test Item Value Reference Range Interpretation Comments Alanine Aminotransferase (ALT/SGPT) (test code = 1742-6) 16 0-55 [facility] McKinneyTotal Fkrdqqs2698-65-22 09:43:00* Test Item Value Reference Range Interpretation Comments Total Protein (test code = 2885-2) 6.4 6.5-8.1 L [facility] McKinneyAlbumin2018-03-01 09:43:00* Test Item Value Reference Range Interpretation Comments Albumin (test code = 1751-7) 3.4 3.5-5.0 L [facility] McKinneyGlobulin2018-03-01 09:43:00* Test Item Value Reference Range Interpretation Comments Globulin (test code = 13479-2) 3.0 2.3-3.5 [facility] McKinneyAlbumin/Globulin Yfzun2635-38-95 09:43:00 * Test Item Value Reference Range Interpretation Comments Albumin/Globulin Ratio (test code = 1759-0) 1.1 0.8-2.0 [facility] McKinneyAlkaline Bcwebkigfri0388-20-03 09:43:00* Test Item Value Reference Range Interpretation Comments Alkaline Phosphatase (test code = 6768-6) 86 40-150 [facility]2018-02-04 07:15:00* Test Item Value Reference Range Interpretation Comments Urine Culture (test code = 630-4) Organism: KLEBSIELLA PNEUMONIAE [facility]2018-02-04 07:15:00* Test Item Value Reference Range Interpretation Comments Urine Culture (test code = 630-4) Organism: KLEBSIELLA PNEUMONIAE [facility]2018-02-04 07:15:00* Test Item Value Reference Range Interpretation Comments Urine Culture (test code = 630-4) Organism: KLEBSIELLA PNEUMONIAE [facility]2018-02-04 07:15:00* Test Item Value Reference Range Interpretation Comments Urine Culture (test code = 630-4) Organism: KLEBSIELLA PNEUMONIAE [facility]2018-02-04 07:15:00* Test Item Value Reference Range Interpretation Comments Urine Culture (test code = 630-4) Organism: KLEBSIELLA PNEUMONIAE [facility]2018-02-04 07:15:00* Test Item Value Reference Range Interpretation Comments Urine Culture (test code = 630-4) Organism: KLEBSIELLA PNEUMONIAE [facility]2018-02-04 07:15:00* Test Item Value Reference Range Interpretation Comments Urine Culture (test code = 630-4) Organism: KLEBSIELLA PNEUMONIAE [facility]2018-02-04 07:15:00* Test Item Value Reference Range Interpretation Comments Urine Culture (test code = 630-4) Organism: KLEBSIELLA PNEUMONIAE [facility]2018-02-04 07:15:00* Test Item Value Reference Range Interpretation Comments Urine Culture (test code = 630-4) Organism: KLEBSIELLA PNEUMONIAE [facility]2018-02-04 07:15:00* Test Item Value Reference Range Interpretation Comments Urine Culture (test code = 630-4) Organism: KLEBSIELLA PNEUMONIAE [facility]2018-02-04 07:15:00* Test Item Value Reference Range Interpretation Comments Urine Culture (test code = 630-4) Organism: KLEBSIELLA PNEUMONIAE [facility] Psuvt1208-93-58 09:45:00* Test Item Value Reference Range Interpretation Comments Sodium Level (test code = 2951-2) 140 136-145 [facility] McKinneyPotassium Ggcnt1457-49-78 09:45:00* Test Item Value Reference Range Interpretation Comments Potassium Level (test code = 2823-3) 3.9 3.5-5.1 [facility] McKinneyChloride Sqeqa0339-17-38 09:45:00* Test Item Value Reference Range Interpretation Comments Chloride Level (test code = 2075-0) 110 98-107 H [facility] McKinneyCarbon Dioxide Admxx2423-42-80 09:45:00* Test Item Value Reference Range Interpretation Comments Carbon Dioxide Level (test code = 2028-9) 22 22-29 [facility] McKinneyAnion Afa1421-88-73 09:45:00* Test Item Value Reference Range Interpretation Comments Anion Gap (test code = 78278-1) 11.9 8-16 [facility] McKinneyBlood Urea Oysvmsgi4933-96-71 09:45:00* Test Item Value Reference Range Interpretation Comments Blood Urea Nitrogen (test code = 3094-0) 12 7-26 [facility] McKinneyCreatinine2018-02-02 09:45:00* Test Item Value Reference Range Interpretation Comments Creatinine (test code = 2160-0) 0.96 0.57-1.11 [facility] McKinneyBUN/Creatinine Rdtnz3442-30-51 09:45:00* Test Item Value Reference Range Interpretation Comments BUN/Creatinine Ratio (test code = 3097-3) 13 6-25 [facility] McKinneyEstimat Glomerular Filtration Rate 2017-07-03 09:45:00* Test Item Value Reference Range Interpretation Comments Estimat Glomerular Filtration Rate (test code = 30122-1) 60- >60 Ranges were taken from the National Kidney Disease Education Program and the [facility] Kid[facility] Foundation literature.Reference ranges:60 or greater: Bjptxp35-72 ( for 3 consecutive months): Chronic kidney disease 15 or less: Kidney failureCHI Methodist Mansfield Medical CenterGlucose Ezmmx4384-86-69 09:45:00* Test Item Value Reference Range Interpretation Comments Glucose Level (test code = RNZ5071) 95 74-118 [facility] McKinneyCalcium Lexzp6642-85-61 09:45:00* Test Item Value Reference Range Interpretation Comments Calcium Level (test code = 08075-7) 8.8 8.4-10.2 [facility] McKinneyTotal Veetglxfd1466-95-54 09:45:00* Test Item Value Reference Range Interpretation Comments Total Bilirubin (test code = 1975-2) 0.3 0.2-1.2 [facility] McKinneyAspartate Amino Transf (AST/SGOT) 2017-07-03 09:45:00* Test Item Value Reference Range Interpretation Comments Aspartate Amino Transf (AST/SGOT) (test code = Aspartate Amino Transf (AST/SGOT)) 14 5-34 [facility] McKinneyAlanine Aminotransferase (ALT/SGPT) 2017-07-03 09:45:00* Test Item Value Reference Range Interpretation Comments Alanine Aminotransferase (ALT/SGPT) (test code = 1742-6) 15 0-55 [facility] McKinneyTotal Tdsdujl9459-97-86 09:45:00* Test Item Value Reference Range Interpretation Comments Total Protein (test code = 2885-2) 6.7 6.5-8.1 [facility] McKinneyAlbumin2018-02-02 09:45:00* Test Item Value Reference Range Interpretation Comments Albumin (test code = 1751-7) 3.8 3.5-5.0 [facility] McKinneyGlobulin2018-02-02 09:45:00* Test Item Value Reference Range Interpretation Comments Globulin (test code = 80948-0) 2.9 2.3-3.5 [facility] McKinneyAlbumin/Globulin Zasjb9081-52-42 09:45:00 * Test Item Value Reference Range Interpretation Comments Albumin/Globulin Ratio (test code = 1759-0) 1.3 0.8-2.0 [facility] McKinneyAlkaline Ewgaupwipxk5672-35-62 09:45:00* Test Item Value Reference Range Interpretation Comments Alkaline Phosphatase (test code = 6768-6) 81 40-150 [facility] McKinneyUrine CGC5033-67-26 09:20:00* Test Item Value Reference Range Interpretation Comments Urine WBC (test code = 5821-4) 0-5 0-5 [facility] McKinneyUrine MRZ6179-27-75 09:20:00* Test Item Value Reference Range Interpretation Comments Urine RBC (test code = 21682-0) NONE 0-5 [facility] McKinneyUrine Nkmhoubd3307-46-79 09:20:00* Test Item Value Reference Range Interpretation Comments Urine Bacteria (test code = 16575-8) MODERATE NONE H [facility] McKinneyUrine Epithelial Drfxz9255-89-97 09:20:00 * Test Item Value Reference Range Interpretation Comments Urine Epithelial Cells (test code = 31516-3) FEW NONE [facility] McKinneyWhite Blood Swjtt2456-65-43 09:19:00* Test Item Value Reference Range Interpretation Comments White Blood Count (test code = 6690-2) 4.89 4.8-10.8 [facility] McKinneyRed Blood Cshuc5174-50-98 09:19:00* Test Item Value Reference Range Interpretation Comments Red Blood Count (test code = 789-8) 4.32 3.6-5.1 [facility] McKinneyHemoglobin2018-02-02 09:19:00* Test Item Value Reference Range Interpretation Comments Hemoglobin (test code = 19624-1) 12.8 12.0-16.0 [facility] McKinneyHematocrit2018-02-02 09:19:00* Test Item Value Reference Range Interpretation Comments Hematocrit (test code = 4544-3) 38.5 34.2-44.1 [facility] McKinneyMean Corpuscular Edvkda9031-16-50 09:19:00* Test Item Value Reference Range Interpretation Comments Mean Corpuscular Volume (test code = 787-2) 89.1 81-99 [facility] McKinneyMean Corpuscular Glaojaccxv5290-53-40 09:19:00* Test Item Value Reference Range Interpretation Comments Mean Corpuscular Hemoglobin (test code = 785-6) 29.6 28-32 [facility] McKinneyMean Corpuscular Hemoglobin Concent 2017-07-03 09:19:00* Test Item Value Reference Range Interpretation Comments Mean Corpuscular Hemoglobin Concent (test code = 786-4) 33.2 31-35 [facility] McKinneyRed Cell Distribution Zihty0069-82-78 09:19:00* Test Item Value Reference Range Interpretation Comments Red Cell Distribution Width (test code = 89720-9) 13.6 11.7 -14.4 [facility] McKinneyPlatelet Rxhpl5403-97-95 09:19:00* Test Item Value Reference Range Interpretation Comments Platelet Count (test code = 777-3) 269 140-360 [facility] McKinneyNeutrophils (%) (Auto)2017-07-03 09:19:00 * Test Item Value Reference Range Interpretation Comments Neutrophils (%) (Auto) (test code = 83840-3) 66.2 38.7-80.0 [facility] McKinneyLymphocytes (%) (Auto)2017-07-03 09:19:00 * Test Item Value Reference Range Interpretation Comments Lymphocytes (%) (Auto) (test code = 736-9) 24.7 18.0-39.1 [facility] McKinneyMonocytes (%) (Auto)2017-07-03 09:19:00* Test Item Value Reference Range Interpretation Comments Monocytes (%) (Auto) (test code = 5905-5) 6.3 4.4-11.3 [facility] McKinneyEosinophils (%) (Auto)2017-07-03 09:19:00 * Test Item Value Reference Range Interpretation Comments Eosinophils (%) (Auto) (test code = 713-8) 2.0 0.0-6.0 [facility] McKinneyBasophils (%) (Auto)2017-07-03 09:19:00* Test Item Value Reference Range Interpretation Comments Basophils (%) (Auto) (test code = 706-2) 0.6 0.0-1.0 [facility] McKinneyIM GRANULOCYTES %2017-07-03 09:19:00* Test Item Value Reference Range Interpretation Comments IM GRANULOCYTES % (test code = IM GRANULOCYTES %) 0.2 0.0- 1.0 [facility] McKinneyNeutrophils # (Auto)2017-07-03 09:19:00* Test Item Value Reference Range Interpretation Comments Neutrophils # (Auto) (test code = 751-8) 3.2 2.1-6.9 [facility] McKinneyLymphocytes # (Auto)2017-07-03 09:19:00* Test Item Value Reference Range Interpretation Comments Lymphocytes # (Auto) (test code = 62341-4) 1.2 1.0-3.2 [facility] McKinneyMonocytes # (Auto)2017-07-03 09:19:00* Test Item Value Reference Range Interpretation Comments Monocytes # (Auto) (test code = 742-7) 0.3 0.2-0.8 [facility] McKinneyEosinophils # (Auto)2017-07-03 09:19:00* Test Item Value Reference Range Interpretation Comments Eosinophils # (Auto) (test code = 711-2) 0.1 0.0-0.4 [facility] McKinneyBasophils # (Auto)2017-07-03 09:19:00* Test Item Value Reference Range Interpretation Comments Basophils # (Auto) (test code = 704-7) 0.0 0.0-0.1 [facility] (auto 2017-07-03 09:19:00* Test Item Value Reference Range Interpretation Comments Absolute Immature Granulocyte (auto (alexa t code = Absolute Immature Granulocyte (auto) 0.01 0-0.1 [facility] Flcoq1752-07-42 08:58:00* Test Item Value Reference Range Interpretation Comments Urine Color (test code = 5778-6) YELLOW YELLOW [facility] Zrpuvih9366-77-39 08:58:00* Test Item Value Reference Range Interpretation Comments Urine Clarity (test code = 28123-4) HAZY CLEAR [facility] Specific Ddreyjz6982-20-55 08:58:00 * Test Item Value Reference Range Interpretation Comments Urine Specific Central (test code = 5811-5) 1.025 1.010-1.02 5 [facility] [id number] 08:58:00* Test Item Value Reference Range Interpretation Comments Urine pH (test code = 77694-9) 5 5-7 [facility] Leukocyte Fftvltyb1767-50-66 08:58:00* Test Item Value Reference Range Interpretation Comments Urine Leukocyte Esterase (test code = 5799-2) TRACE NEGATIVE H [facility] Jmrthqm0439-84-53 08:58:00* Test Item Value Reference Range Interpretation Comments Urine Nitrite (test code = 64130-6) NEGATIVE NEGATIVE [facility] Nhbcgup0206-21-40 08:58:00* Test Item Value Reference Range Interpretation Comments Urine Protein (test code = 5804-0) NEGATIVE NEGATIVE [facility] Glucose (UA)2017-07-03 08:58:00* Test Item Value Reference Range Interpretation Comments Urine Glucose (UA) (test code = 2349-9) NEGATIVE NEGATIVE [facility] Evptaqz4675-33-12 08:58:00* Test Item Value Reference Range Interpretation Comments Urine Ketones (test code = 48582-6) NEGATIVE NEGATIVE [facility] Yugzumcjlwie5407-16-24 08:58:00* Test Item Value Reference Range Interpretation Comments Urine Urobilinogen (test code = 13742-3) 0.2 0.2-1 [facility] Jifnpiwxe6151-87-41 08:58:00* Test Item Value Reference Range Interpretation Comments Urine Bilirubin (test code = 1978-6) 1+ NEGATIVE H [facility] Ppcrm3606-69-93 08:58:00* Test Item Value Reference Range Interpretation Comments Urine Blood (test code = 40961-1) NEGATIVE NEGATIVE [facility] Mnxj8815-87-44 08:58:00* Test Item Value Reference Range Interpretation Comments Urine Test (test code = 2106-3) NEGATIVE NEGATIVE [facility] Yhdc7176-26-72 08:58:00* Test Item Value Reference Range Interpretation Comments Urine Test (test code = 2106-3) NEGATIVE NEGATIVE [facility] Jlyl6168-11-20 08:58:00* Test Item Value Reference Range Interpretation Comments Urine Test (test code = 6-3) NEGATIVE NEGATIVE [facility] Assz9380-58-59 08:58:00* Test Item Value Reference Range Interpretation Comments Urine Test (test code = 6-3) NEGATIVE NEGATIVE [facility] Vlyc8550-20-86 08:58:00* Test Item Value Reference Range Interpretation Comments Urine Test (test code = 6-3) NEGATIVE NEGATIVE [facility] Mdve5378-24-49 08:58:00* Test Item Value Reference Range Interpretation Comments Urine Test (test code = 6-3) NEGATIVE NEGATIVE [facility] Txai1992-12-31 08:58:00* Test Item Value Reference Range Interpretation Comments Urine Test (test code = 6-3) NEGATIVE NEGATIVE [facility] Znmm3471-40-54 08:58:00* Test Item Value Reference Range Interpretation Comments Urine Test (test code = 6-3) NEGATIVE NEGATIVE [facility] Sfcy3981-01-69 08:58:00* Test Item Value Reference Range Interpretation Comments Urine Test (test code = 6-3) NEGATIVE NEGATIVE [facility] W [facility] [address] [place] [address] Patient Name: ANGELA ESPINOSA MR #: [id number] : 1975 Age/Sex: 41/F Req #: [id number] Adm Physician: Ordered by: NATALIA MORE BLENDER / COOK Report #: [id number] Location: ER Room/Bed: Procedure: [id number] CT/CT ABDOMEN/PELVIS W Exam Date: 10/26/17 Exam [...] on 10/26/2017 11:40 AM Dictated By: BHARATHI Erwin dennys Signed By: BHARATHI GRIGGS MD on 10/26/17 1140 Transcribed By: LULU on 0 10/26/17 1140 COPY TO: NATALIA MORE NP ABDOMEN-1VIEW (KUB) [place] [address] Patient Name: ANGELA ESPINOSA MR #: [id number] OB: 1975 Age/Sex: 41/F Req #: [id number] Adm Physic domo: Ordered by: COLLETTE MARTINEZ MD Report #: [id number] Location: ER Room/Bed: Procedure: [id number] DX/ABDOMEN-1VIEW (KUB) Exam Date: 09/09/17 Exam Time: [address] ATUS: Signed PROCEDURE: X-RAY ABDOMEN - KUB COMPARISON: Patients [facility], DX, ABDOMEN-1VIEW (KUB), 08/23/2017, 13:24. INDICATIONS: ABDOMINAL [...] TO: AKOSUA MARTINEZ MD CT ABDOMEN W [place] [address] Patient Name: ANGELA ESPINOSA MR #: [id number] : 1975 Age/Sex: 41/F Req #: [id number] Adm Physician: GLENN TILLEY MD Ordered by: GLENN TILLEY MD Report #: [id number] Location: MED/SURG Room/Bed: [facility] [place] Procedure: [id number] CT/ CT ABDOMEN W Exam Date: 08/23/17 Exam Time: 2026 REPORT STATUS: Signed EXAM: CT ABDOMEN W DATE: 08/23/2017 5:21 PM Time stamp on Exam: 2030 hours INDICATION: Worsening right upper quadrant pain COMPARISON: [...] trace pleural effusions. Inés d by: Dr. Evelin Lawler M.D. on 08/23/2017 9:03 PM Dictated By: EVELIN LAWLER MD 02 Transc ribed By: LULU on 08/23/172102 COPY TO: GLENN TILLEY MD ABDOMEN-1VIEW (KUB) [place] [address] Patient Name: ANGELA ESPINOSA MR #: [id number] : 1975 Age/Sex: 41/F Req #: [id number] Adm Physician: GLENN TILLEY MD Ordered by: MARINE MUÑOZ MD Report #: [id number] Location: MED/SURG Room/Bed: [facility] [place] Procedure: [id number] DX/A BDOMEN-1VIEW (KUB) Exam Date: 08/23/17 Exam Time: REPORT STATUS: Signed EXAM: ABDOMEN-1VIEW (KUB) DATE: 08/23/2017 12:17 PM INDICATION: COMPARISON: None FINDING S: Cholecystectomy clips. Nonspecific bowel gas pattern. Stool burden not ex cessive. No acute osseous findings. IMPRESSION: No acute findings. Signed by: Dr. Yovani Pope MD on 08/23/2017 1:37 PM Dictated By: YOVANI POPE MD 36 Transc ribed By: LULU on 08/23/171336 COPY TO: MARINE MUÑOZ MD CT ABDOMEN/PELVIS W [place] [address] Patient Name: ANGELA ESPINOSA MR #: [id number] : 1975 Age/Sex: 41/F Req #: [id number] Adm Physician: GLENN TILLEY MD Ordered by: YOLETTE VILLARREAL MD Report #: [id number] Location: [facility] Room/Bed: [place] [address] Procedure: [id number]/CT ABDOMEN/PELVIS W Exam Date: 08/20/17 Exam T misti: 1030 REPORT STATUS: Signed PROCEDURE: CT ABDOMEN AND PELVIS WITH C ONTRAST TECHNIQUE: The abdomen and pelvis were scanned utilizing a [facility] [employer] helical scanner from the diaphragm to the [...] at 11:37 Dictated By: JAREK NAJERA MD Transcribed By: FAVIAN on 08/20/17 1137 COPY T O: YOLETTE VILLARREAL MD CT ABDOMEN/PELVIS WO [place] [address] Patient Name: ANGELA ESPINOSA MR #: [id number] : 1975 Age/Sex: 41/F Req #: [id number] Adm Physician: Ordered by: MADELINE GILBERT MD Report #: [id number] Location: ER Room/Bed: Procedure: [id number] CT/CT ABDOMEN/PELVIS WO Exam Date: 08/05/17 Exam [...] TO: MAYLIN GILBERT RD, MD CT ABDOMEN/PELVIS [place] [address] Patient Name: ANGELA ESPINOSA MR #: [id number] : 1975 Age/Sex: 41/F Req #: [id number] Adm Physician: Ordered by: MADELINE MCKEON MD Report #: [id number] Location: ER Room/Bed: Procedure: [id number] CT/CT ABDOMEN/PELVIS WO Exam Date: 07/30/17 Exam Time: 0940 REPORT STA TUS: Signed PROCEDURE: CT ABDOMEN AND PELVIS WITHOUT CONTRAST COMPARISON : [facility], CT, CT ABDOMEN/PELVIS WO, 07/03/2017, 9:15. IND [...] Signed By: KIRBY BRITTON MD on 07/30/17 100 Transcribed By: FAVIAN on 06/18 COPY TO: MADELINE MCKEON MD CT ABDOMEN/PELVIS WO [place] [address] Patient Name: ANGELA ESPINOSA MR #: [id number] : 1975 Age/Sex: 41/F Req #: [id number] Adm Physician: Ordered by: MARTA BARROW MD Report #: [id number] Location: ER Room/Bed: Procedure: [id number] CT/CT ABDOMEN/PELVIS WO Ex am Date: 07/03/17 [...]
[2019-11-03] MEDS ORDERED: KETOROLAC TROMETHAMINE 30 MG/ML VIAL IV STA (20:50)
[2019-11-03] MEDS ORDERED: KETOROLAC TROMETHAMINE 30 MG/ML VIAL ONE (21:06)
[2019-11-03 21:10] LABS: BASOPHILS # (AUTO) 0.1 (0.0-0.1); BASOPHILS % 0.6 % (0.0-1.0); EOSINOPHILS # (AUTO) 0.3 (0.0-0.4); EOSINOPHILS % 2.4 % (0.0-6.0); HEMATOCRIT 42.8 % (34.2-44.1); HEMOGLOBIN 14.5 g/dL (12.0-16.0); LYMPHOCYTES # (AUTO) 2.7 (1.0-3.2); MEAN CORPUSCULAR HEMOGLOBIN 28.4 pg (28-32); MEAN CORPUSCULAR HGB CONC 33.9 g/dL (31-35); MEAN CORPUSCULAR VOLUME 83.9 fL (81-99); MONOCYTES # (AUTO) 0.8 (0.2-0.8); NEUTROPHILS # (AUTO) 8.8 (2.1-6.9); NEUTROPHILS % 69.6 % (38.7-80.0); PLATELET COUNT 99 x10e3/uL (140-360); RED CELL DISTRIBUTION WIDTH 14.7 % (11.7-14.4)
--- NOTE | 2019-11-03 21:23 | Emergency Department Note ---
History of Present Illnes History of Present Illness Chief Complaint: Back Pain History of Present Illness This is a 43 year old female patient presents claiming left flank pain and dysuria since . Patient seen at this facility on Thursday and was prescribed Macrobid and Cipro for UTI. Patient state reports was not getting better call her urologist Dr. Riojas. States Dr. Riojas told her come to the ER for evaluation. Dr. Riojas called and spoke with me and said that Cipro and Macrobid were not to be enough to take care of her UTI that'll give the tissue penetration. Requested a repeat blood work anyway and call him with results. . Historian: Patient Arrival Mode: Car Onset (how long ago): day(s) (6) Location: LEFT FLANK Quality: PSIN DYSURIA Radiation: abdomen (LEFT ABDOMEN) Severity: moderate Onset quality: sudden Duration (how long): day(s) (6) Timing of current episode: constant Chronicity: recurrent Context: recent illness (DIAGNOSED WITH UTI THURSDAY) Relieving factors: none Exacerbating factors: none Associated symptoms: denies other symptoms Past Medical/Family History Physician Review I have reviewed the patient's past medical and family history. Any updates have been documented here. Past Medical History Recent Fever: No Clinical Suspicion of Infectio: No New/Unexplained Change in Ment: No Past Medical History: Kidney Stones, UTI's, Other Mental Illness Other Medical History: PTSD MORBID OBESITY Past Surgical History: Cholecysctectomy, Hysterectomy, Hernia Repair Other Surgery: Lithotripsy Social History Smoking Cessation: Never Smoker Alcohol Use: None Any Illegal Drug Use: No Family History Family history of heart diseas: No Other Last Tetanus: unknown Review of Systems Review of Systems Constitutional: no symptoms EENTM: no symptoms Cardiovascular: no symptoms Respiratory: no symptoms Gastrointestinal: no symptoms Genitourinary: as per HPI Musculoskeletal: no symptoms Neurological: no symptoms Psychological: no symptoms Endocrine: no symptoms Hematological/Lymphatic: no symptoms Review of other systems All other systems reviewed and negative. Physical Exam Related Data Allergies: Coded Allergies: ceftriaxone (Verified Allergy, Severe, 10/30/19) sulfamethoxazole (Verified Allergy, Severe, 10/30/19) trimethoprim (Verified Allergy, Severe, 10/30/19) codeine (Verified Allergy, Mild, 04/28/19) tramadol (Verified Allergy, Unknown, 04/28/19) Triage Vital Signs Vital Signs Date Time Temp Pulse Resp B/P (MAP) Pulse Ox O2 Delivery O2 Flow Rate FiO2 11/03/19 20:47 97.1 82 16 112/68 97 Vital signs reviewed: Yes Physical Exam CONSTITUTIONAL Constitutional: well-developed, well-nourished HENT HENT: normocephalic, atraumatic, oropharynx clear/moist, nose normal HENT L/R: left ext ear normal, right ext ear normal EYES Eyes: PERRL, conjunctivae normal NECK Neck: ROM normal PULMONARY Pulmonary: effort normal, breath sounds normal CARDIOVASCULAR Cardiovascular: regular rhythm, heart sounds normal, capillary refill normal, normal rate GASTROINTESTINAL Abdominal: soft, nontender, bowel sounds normal, left CVA tenderness (MODERATE) GENITOURINARY Genitourinary: exam deferred SKIN Skin: warm, dry MUSCULOSKELETAL Musculoskeletal: ROM normal NEUROLOGICAL Neurological: alert, oriented x 3, no gross motor or sensory deficits PSYCHOLOGICAL Psychological: mood/affect normal, judgement normal Results Laboratory Result Diagram: 11/03/192055 Laboratory Laboratory Tests Test 11/03/19 20:56 White Blood Count 12.69 x10e3/uL (4.8-10.8) Red Blood Count 5.10 x10e6/uL (3.6-5.1) Hemoglobin 14.5 g/dL (12.0-16.0) Hematocrit 42.8 % (34.2-44.1) Mean Corpuscular Volume 83.9 fL (81-99) Mean Corpuscular Hemoglobin 28.4 pg (28-32) Mean Corpuscular Hemoglobin Concent 33.9 g/dL (31-35) Red Cell Distribution Width 14.7 % (11.7-14.4) Platelet Count 99 x10e3/uL (140-360) Neutrophils (%) (Auto) 69.6 % (38.7-80.0) Lymphocytes (%) (Auto) 21.0 % (18.0-39.1) Monocytes (%) (Auto) 6.0 % (4.4-11.3) Eosinophils (%) (Auto) 2.4 % (0.0-6.0) Basophils (%) (Auto) 0.6 % (0.0-1.0) Neutrophils # (Auto) 8.8 (2.1-6.9) Lymphocytes # (Auto) 2.7 (1.0-3.2) Monocytes # (Auto) 0.8 (0.2-0.8) Eosinophils # (Auto) 0.3 (0.0-0.4) Basophils # (Auto) 0.1 (0.0-0.1) Absolute Immature Granulocyte (auto 0.05 x10e3/uL (0-0.1) Urine Color Yellow (YELLOW) Urine Clarity Sl cloudy (CLEAR) Urine pH 6.5 (5 - 7) Urine Specific [place] 1.025 (1.010-1.025) Urine Protein Negative (NEGATIVE) Urine Glucose (UA) Negative (NEGATIVE) Urine Ketones Trace (NEGATIVE) Urine Blood Negative (NEGATIVE) Urine Nitrite Negative (NEGATIVE) Urine Bilirubin Negative (NEGATIVE) Urine Urobilinogen 0.2 mg/dL (0.2 - 1) Urine Leukocyte Esterase Negative (NEGATIVE) Sodium Level 139 mmol/L (136-145) Potassium Level 4.4 mmol/L (3.5-5.1) Chloride Level 101 mmol/L (98-107) Carbon Dioxide Level 25 mmol/L (22-29) Anion Gap 17.4 mmol/L (8-16) Blood Urea Nitrogen 9 mg/dL (7-26) Creatinine 0.87 mg/dL (0.57-1.11) Estimat Glomerular Filtration Rate > 60 ML/MIN (60-) BUN/Creatinine Ratio 10 (6-25) Glucose Level 112 mg/dL (74-118) Calcium Level 10.8 mg/dL (8.4-10.2) Total Bilirubin 0.5 mg/dL (0.2-1.2) Aspartate Amino Transf (AST/SGOT) 35 IU/L (5-34) Alanine Aminotransferase (ALT/SGPT) 56 IU/L (0-55) Alkaline Phosphatase 88 IU/L (40-150) Total Protein 7.1 g/dL (6.5-8.1) Albumin 3.6 g/dL (3.5-5.0) Globulin 3.5 g/dL (2.3-3.5) Albumin/Globulin Ratio 1.0 (0.8-2.0) Laboratory Tests Test 11/03/19 20:56 White Blood Count 12.69 x10e3/uL (4.8-10.8) Red Blood Count 5.10 x10e6/uL (3.6-5.1) Hemoglobin 14.5 g/dL (12.0-16.0) Hematocrit 42.8 % (34.2-44.1) Mean Corpuscular Volume 83.9 fL (81-99) Mean Corpuscular Hemoglobin 28.4 pg (28-32) Mean Corpuscular Hemoglobin Concent 33.9 g/dL (31-35) Red Cell Distribution Width 14.7 % (11.7-14.4) Platelet Count 99 x10e3/uL (140-360) Neutrophils (%) (Auto) 69.6 % (38.7-80.0) Lymphocytes (%) (Auto) 21.0 % (18.0-39.1) Monocytes (%) (Auto) 6.0 % (4.4-11.3) Eosinophils (%) (Auto) 2.4 % (0.0-6.0) Basophils (%) (Auto) 0.6 % (0.0-1.0) Neutrophils # (Auto) 8.8 (2.1-6.9) Lymphocytes # (Auto) 2.7 (1.0-3.2) Monocytes # (Auto) 0.8 (0.2-0.8) Eosinophils # (Auto) 0.3 (0.0-0.4) Basophils # (Auto) 0.1 (0.0-0.1) Absolute Immature Granulocyte (auto 0.05 x10e3/uL (0-0.1) Critical Care Time Subsequent provider I assumed direction of critical care for this patient from another provider of my specialty. Assessment & Plan Assessment & Plan Final Impression: (1) URINARY TRACT INFECTION, SITE NOT SPECIFIED (2) UNSPECIFIED RENAL COLIC (3) Kidney stones Assessment & Plan Patient with left flank pain and dysuria for 6 days area CBC, CMP, and UA ordered to evaluate for UTI, material, electrolyte abnormality, renal insufficiency, leukocytosis. Patient still UTI despite being on antibiotics since Thursday UTIs not improving. I spoke with Dr. Ragland he states this patient has history of repeated a compli cated urinary tract infections requiring IV antibiotics to treat. I spoke with Dr. Riojas and Dr. Crocker patient to be admitted and started on gentamicin and Levaquin. Depart Disposition: ADMITTED Last Vital Signs Date Time Temp Pulse Resp B/P (MAP) Pulse Ox O2 Delivery O2 Flow Rate FiO2 11/03/19 20:47 97.1 82 16 112/68 97 Home Meds Reported Medications Clonazepam (CLONAZEPAM) 2 Mg Tablet, 2 MG PO HS 11/10/18 Diazepam (DIAZEPAM) 10 Mg Tablet, 10 MG PO HS 06/03/18 Amitriptyline Hcl (AMITRIPTYLINE HCL) 150 Mg Tablet, 150 MG PO HS 06/03/18 Medications in the ED Ketorolac Tromethamine 30 mg ONCE STAT IV ; Start 11/03/19 at 20:50; Stop 11/03/19 at 20:59; Status DC Ketorolac Tromethamine 30 mg STK-MED ONCE .ROUTE ; Start 11/03/19 at 21:06; Stop 11/03/19 at 21:00; Status DC BOBBY AMARO MD Nov 03, 2019 21:23
[2019-11-03 21:30] LABS: ALANINE AMINOTRANSFERASE 56 IU/L (0-55); ALBUMIN 3.6 g/dL (3.5-5.0); ALKALINE PHOSPHATASE 88 IU/L (40-150); ANION GAP 17.4 mmol/L (8-16); BLOOD UREA NITROGEN 9 mg/dL (7-26); BUN/CREATININE RATIO 10 (6-25); CALCIUM 10.8 mg/dL (8.4-10.2); CARBON DIOXIDE 25 mmol/L (22-29); CHLORIDE 101 mmol/L (98-107); CREATININE, SERUM 0.87 mg/dL (0.57-1.11); EST GLOMERULAR FILTRATION RATE > 60 ML/MIN (60-); GLUCOSE 112 mg/dL (74-118); POTASSIUM 4.4 mmol/L (3.5-5.1); SODIUM 139 mmol/L (136-145)
[2019-11-03] MEDS ORDERED: GENTAMICIN 120MG/NS 100ML 100 ML IV ONE ×3 (22:30)
[2019-11-03 22:33] LABS: BILIRUBIN,URINE NEGATIVE (NEGATIVE); CLARITY,URINE SL CLOUDY (CLEAR); COLOR,URINE YELLOW (YELLOW); KETONES,URINE TRACE (NEGATIVE); LEUKOCYTE ESTERASE ,URINE NEGATIVE (NEGATIVE); NITRITE,URINE NEGATIVE (NEGATIVE); PROTEIN,URINE DIPSTICK NEGATIVE (NEGATIVE); URINE UROBILINOGEN 0.2 mg/dL (0.2 - 1)
--- OUTSIDE RECORDS SUMMARY | 2019-11-03 22:36 | XMS REPORT | Clinical Summary ---
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
--- OUTSIDE RECORDS SUMMARY | 2019-11-03 22:37 | XMS REPORT | Clinical Summary ---
Author Author [facility] Address Unknown Phone Unavailable Care Team Providers Care Coater Operator Insulation Board Name Role Phone Sharpless PCP Unavailable Allergies [...] Medica id CARE [employer] Non-Contra cted (Home) [place] [address]
--- OUTSIDE RECORDS SUMMARY | 2019-11-03 22:42 | XMS REPORT | Continuity of Care Document ---
Author Author [facility] t Organization [facility] Address [address] [place] [address] Phone Unavailable Care Team Providers Care Backup Engineer Name Role Phone NONSTAFF PCP Unavailable Ashutosh VORA Attphys Unavailable JUANMarianne TINOCO Attphys Unavailable NATALIA AVILA Attphys Unavailable GLENN TILLEY Attphys Unavailable SWEET, A LAINIRALI Attphys Unavailable HENRI, T BARROW Attphys Unavailable TANVI, S AMBICA Attphys Unavailable HUSBY, T MADELINE Attphys Unavailable MANEEVESE, V CANDE Attphys Unavailable LONI CRAWFORD Attphys Unavailable MADELINE MCKEON Attphys Unavailable Khang BARROW Attphys Unavailable GLENN TILLEY Admphys Unavailable Payers Payer Name Policy Type Policy Number Effective Date Expiration Date Yaron kelley [facility] [id number] 2016 00:00 :00 [facility] [employer] [id number] 2016 00:00:00 [facility] [facility] [employer] [id number] 2016 00:00:00 [facility] Problems Condition Name Condition Details Condition Category Status Onset Date Resolution Date Last Treatment Date Treating Clinician Comments Source Nausea vomiting and diarrhea Nausea vomiting and diarrhea Disease Active 2017-10-25 00:00:00 [facility] Mild dehydration Mild dehydration Disease Active 2017-10-25 00:00:00 [facility] Acute pancreatitis Pancreatitis, acute Problem Active [facility] Abdominal pain Abdominal pain Problem Active [facility] Calculus of kidney Kidney stones Problem Active [facility] Allergies, Adverse Reactions, Alerts Allergy Name Allergy Type Status Severity Reaction(s) Onset Date Inacti ve Date Treating Clinician Comments Source codeine DA Active [place] 2019-10-08 00:00:00 [facility] sulfamethoxazole DA Active [place] 2019-10-08 00:00:00 [facility] trimethoprim DA Active [place] 2019-10-08 00:00:00 [facility] tramadol DA Active [place] 2019-10-08 00:00:00 [facility] ceftriaxone DA Active [place] 2019-10-08 00:00:00 [facility] codeine DA Active [place] 2019-10-05 00:00:00 [facility] sulfamethoxazole DA Active [place] 2019-10-05 00:00:00 [facility] trimethoprim DA Active [place] 2019-10-05 00:00:00 [facility] tramadol DA Active [place] 2019-10-05 00:00:00 [facility] ceftriaxone DA Active [place] 2019-10-05 00:00:00 [facility] codeine DA Active [place] 2019-07-24 00:00:00 [facility] sulfamethoxazole DA Active [place] 2019-07-24 00:00:00 [facility] trimethoprim DA Active [place] 2019-07-24 00:00:00 [facility] tramadol DA Active [place] 2019-07-24 00:00:00 [facility] ceftriaxone DA Active U 2019-07-24 00:00:00 [facility] codeine DA Active [place] 2019-07-22 00:00:00 [facility] sulfamethoxazole DA Active [place] 2019-07-22 00:00:00 [facility] trimethoprim DA Active [place] 2019-07-22 00:00:00 [facility] tramadol DA Active [place] 2019-07-22 00:00:00 [facility] ceftriaxone DA Active [place] 2019-07-22 00:00:00 [facility] codeine DA Active [place] 2019-05-13 00:00:00 [facility] sulfamethoxazole DA Active [place] 2019-05-13 00:00:00 [facility] trimethoprim DA Active [place] 2019-05-13 00:00:00 [facility] tramadol DA Active [place] 2019-05-13 00:00:00 [facility] ceftriaxone DA Active [place] 2019-05-13 00:00:00 [facility] Codeine Allergy to Substance Active Mild 2019-04-28 00:00:00 [facility] Tramadol Allergy to Substance Active 2019-04-28 00:00:00 [facility] sulfamethoxazole DA Active [place] 2019-04-02 00:00:00 [facility] trimethoprim DA Active [place] 2019-04-02 00:00:00 [facility] sulfamethoxazole DA Active [place] 2019-03-11 00:00:00 [facility] trimethoprim DA Active [place] 2019-03-11 00:00:00 [facility] ceftriaxone DA Active [place] 2019-03-11 00:00:00 [facility] codeine DA Active [place] 2019-02-23 00:00:00 [facility] tramadol DA Active [place] 2019-02-23 00:00:00 [facility] codeine DA Active [place] 2019-02-06 00:00:00 [facility] tramadol DA Active [place] 2019-02-06 00:00:00 [facility] ceftriaxone DA Active [place] 2019-02-06 00:00:00 [facility] ceftriaxone DA Active [place] 2019-02-05 00:00:00 [facility] codeine DA Active [place] 2019-01-25 00:00:00 [facility] tramadol DA Active [place] 2019-01-25 00:00:00 [facility] codeine DA Active [place] 2019-01-10 00:00:00 [facility] tramadol DA Active [place] 2019-01-10 00:00:00 [facility] codeine DA Active [place] 2018-12-26 00:00:00 [facility] tramadol DA Active [place] 2018-12-26 00:00:00 [facility] codeine DA Active [place] 2018-12-25 00:00:00 [facility] tramadol DA Active [place] 2018-12-25 00:00:00 [facility] codeine DA Active [place] 2018-12-08 00:00:00 [facility] tramadol DA Active [place] 2018-12-08 00:00:00 [facility] codeine DA Active [place] 2018-11-07 00:00:00 [facility] tramadol DA Active [place] 2018-11-07 00:00:00 [facility] codeine DA Active [place] 2018-10-19 00:00:00 [facility] tramadol DA Active [place] 2018-10-19 00:00:00 [facility] codeine DA Active [place] 2018-08-28 00:00:00 [facility] tramadol DA Active [place] 2018-08-28 00:00:00 [facility] codeine DA Active [place] 2018-08-18 00:00:00 [facility] tramadol DA Active [place] 2018-08-18 00:00:00 [facility] codeine DA Active [place] 2018-08-07 00:00:00 [facility] tramadol DA Active [place] 2018-08-07 00:00:00 [facility] codeine DA Active [place] 2018-07-29 00:00:00 [facility] tramadol DA Active [place] 2018-07-29 00:00:00 [facility] codeine DA Active [place] 2018-07-22 00:00:00 [facility] tramadol DA Active [place] 2018-07-22 00:00:00 [facility] codeine DA Active [place] 2018-07-03 00:00:00 [facility] tramadol DA Active [place] 2018-07-03 00:00:00 [facility] codeine DA Active [place] 2018-07-01 00:00:00 [facility] tramadol DA Active [place] 2018-07-01 00:00:00 [facility] codeine DA Active 2018-05-15 00:00:00 [facility] tramadol DA Active [place] 2018-05-15 00:00:00 [facility] Codeine Propensity to adverse reactions to drug Active Other (See Comments) 2018-03-05 00:00:00 [facility] Tramadol Propensity to adverse reactions to drug Active Other (See Comments) 2018-03-05 00:[facility] [place] 2018-02-05 00:00:00 [facility] tramadol DA Active [place] 2018-02-05 00:00:00 [facility] codeine DA Active [place] 2018-02-02 00:00:00 [facility] tramadol DA Active [place] 2018-02-02 00:00:00 [facility] codeine DA Active [place] 2018-01-28 00:00:00 [facility] tramadol DA Active [place] 2018-01-28 00:00:00 [facility] Codeine Propensity to adverse reactions Active 2017-10-25 0 0:00:00 [facility] Tramadol Propensity to adverse reactions Active 2017-10-25 00:00:00 [facility] Social History Social Habit Start Date Stop Date Quantity Comments Source History of tobacco use Current smoker Jai Zee Sex Assigned At [facility] Alcohol intake 2018-03-05 00:00:00 2018-03-05 00:00:00 Current [...] Nanci Oviedo Do 500 Daily for 10 [facility] Cephalexin Monohydrate (Keflex) 500 Mg Capsule, 500 Mg Oral Cephalexin Monohydrate (Keflex) 500 Mg Capsule, 500 Mg Oral 2018-01-21 00:00:00 06-03 00:00:00 No Seema Hagerr Do 500 Every 6 Hours [facility] Prednisone 20 Mg Tab, 40 Mg Oral Prednisone 20 Mg Tab, 40 Mg Oral 2018-01-21 00:00:00 2018-06-03 00:00:00 No Seema Cottonhir Do 40 Daily [facility] Acetaminophen With Codeine (Tylenol With Codeine #3 Tablet) 1 Each Tablet, 300 Mg Oral Acetaminophen With Codeine (Tylenol With Codeine #3 Tablet) 1 Each Tablet, 300 Mg Oral 2017-08-24 00:00:00 2017-12-04 00:00:00 No Glenn albarado Md 300 Every 8 Hours as needed for Pain [facility] Cyclobenzaprine Hcl 10 Mg Tablet, 5 Mg Oral Cyclobenza rita Hcl 10 Mg Tablet, 5 Mg Oral 2017-08-24 00:00:00 2017-12-04 00:00:00 No Glenn Tilley Md 5 Three Times A Day [facility] Ondansetron (Zofran Odt) 4 Mg Tab.rapdis, 4 Mg Oral On dansetron (Zofran Odt) 4 Mg Tab.rapdis, 4 Mg Oral 2017-08-24 00:00:00 2017-12-04 00:00:00 Christi Tilley Md 4 Q4-6H Prn [facility] Polyethylene Glycol 3350 (Miralax) 17 Gm Powd.pack, 17 Gm Oral Polyethylene Glycol 3350 (Miralax) 17 Gm Powd.pack, 17 Gm Oral 2017-08-24 00:00:00 2017 00:00:00 Christi Tilley Md 17 Twice A Day [facility] Senna Fruit/Conc/Doc Sod/Bisa 1 Ea Tab, 2 Ea Oral Yvette a Fruit/Conc/Doc Sod/Bisa 1 Ea Tab, 2 Ea Oral 2017-08-24 00:00:00 2017-12-04 00:00:00 Christi albarado Md 2 Bedtime [facility] Amitriptyline Hcl 150 Mg Tablet Amitriptyline Hcl 150 Mg Tablet Yes 150 Bedtime [facility] Clonazepam 2 Mg Tablet Clonazepam 2 Mg Tablet Yes 2 Bedtime [facility] Diazepam 10 Mg Tablet Diazepam 10 Mg Tablet Yes 10 Bedtime [facility] Procedures Procedure Date / Time Performed Performing Clinician [facility] e X-ray of chest, single view 2019-03-01 00:00:00 NATALIA AVILA [facility] Computed tomography of abdomen and pelvis with contrast 2018 00:00:00 NATALIA AVILA [facility] Computed tomography of abdomen and pelvis with contrast 2018 00:00:00 JOHN MALONEY [facility] CT of abdomen and pelvis without contrast 2018-10-01 00:00:00 EROS ZAZUETA [facility] EMERGENCY DEPT VISIT 2018-08-08 00:00:[address] [facility] [address] of abdomen and pelvis without contrast 2018-08-05 00:00:0 0 COLLETTE MARTINEZ [facility] Plan of Care Planned Activity Planned Date Details Comments Source Future Scheduled Test 2019-12-31 00:00:00 INFLUENZA VACCINE [code = INFLUENZA VACCINE] Jai Zee Future Scheduled Test 1998 00:00:00 Screening for lisset gnant neoplasm of cervix (procedure) [code = 307027193] Jai delarosa Encounters Start Date/Time End Date/Time Encounter Type Admission Type Attendi [facility] Care Department Encounter ID Source 2019-04-28 07:19:00 2019-04-28 08:41:00 Departed Emergency Room [facility] [id number] [facility] 2019-04-22 08:20:00 2019-04-22 12:42:00 Departed Emergency Room 1 COLLETTE MARTINEZ [facility] [id number] [facility] 2019-04-16 06:54:00 2019-04-16 06:54:00 Emergency E [facility] 2019-03-18 08:01:00 2019-03-18 09:40:00 Departed Emergency Room [facility] [id number] [facility] 2019-03-03 07:46:00 2019-03-03 07:46:00 Emergency E MHSE [facility]SE [facility] 2019-03-01 08:09:00 2019-03-01 09:54:00 Departed Emergency Room 1 NATALIA AVILA [facility] [id number] [facility] 2019-02-26 12:14:00 2019-02-26 16:30:00 Departed Emergency Room 1 [facility] [id number] [facility] 2019-01-21 07:56:00 2019-01-21 07:56:00 Emergency E MHSE [facility]SE [facility] 2019-01-14 06:04:00 2019-01-14 06:04:00 Emergency E MHSE [facility] 2019-01-12 09:04:00 2019-01-12 09:04:00 Emergency E MHSE [facility]SE [facility] 2018-12-21 08:10:00 2018-12-21 08:10:00 Emergency E MHSE [facility]SE [facility] 2018-11-09 23:38:00 2018-11-12 10:55:00 Discharged Inpatient (obs) 1 GLENN TILLEY [facility] [id number] [facility] 2018-10-27 07:48:00 2018-10-27 07:48:00 Emergency E MHSE MHSE [address] [facility] 2018-10-14 07:46:00 2018-10-14 07:46:00 Emergency E MHSE MHSE [facility] 2018-10-01 07:52:00 2018-10-01 10:54:00 Departed Emergency Room 1 EROS SIDHU [facility] [id number] [facility] 2018-09-29 07:48:00 2018-09-29 07:48:00 Emergency E MHSE [facility]SE [address] [facility] 2018-09-09 07:48:00 2018-09-09 07:48:00 Emergency E MHSE MHSE [facility] 2018-08-30 10:01:00 2018-08-30 10:01:00 Emergency E MHSE [facility]SE [facility] [facility] 2018-08-08 09:43:00 2018-08-08 13:52:00 Departed Emergency Room [facility] [id number] [facility] 2018-08-05 07:58:00 2018-08-05 11:18:00 Departed Emergency Room 1 COLLETTE MARTINEZ [facility] [id number] [facility] 2018-06-15 08:19:00 2018-06-15 11:31:00 Departed Emergency Room [facility] [id number] [facility] 2018-06-03 08:45:00 2018-06-03 12:30:00 Departed Emergency Room 1 EROS SIDHU [facility] [id number] [facility] 2018-04-28 08:51:00 2018-04-28 11:28:00 Departed Emergency Room [facility] [id number] [facility] 2018-04-09 08:18:00 2018-04-09 09:41:00 Departed Emergency Room [facility] [id number] [facility] 2018-03-31 08:02:00 2018-03-31 10:40:00 Departed Emergency Room [facility] [id number] [facility] 2018-03-28 08:28:00 2018-03-28 12:15:00 Departed Emergency Room 1 DANIAL ÁLVAREZ [facility] [id number] [facility] 2018-03-04 08:29:00 2018-03-04 12:33:00 Departed Emergency Room 1 SEEMA TINAJERO [facility] [id number] [facility] 2018-02-09 08:28:00 2018-02-09 11:21:00 Departed Emergency Room [facility] [id number] [facility] 2018-01-21 07:51:00 2018-01-21 11:00:00 Departed Emergency Room 1 SEEMA TINAJERO [facility] [id number] [facility] 2017-12-04 07:45:00 2017-12-04 13:10:00 Departed Emergency Room 1 MADELINE GILBERT [facility] [id number] [facility] 2017-11-17 07:45:00 2017-11-17 11:15:00 Departed Emergency Room 1 CANDE LOUIS [facility] [id number] [facility] 2017-10-26 09:23:00 2017-10-26 12:30:00 Departed Emergency Room 1 MADELINE GILBERT [facility] [id number] [facility] 2017-09-09 08:01:00 2017-09-09 10:26:00 Departed Emergency Room ER COLLETTE MARTINEZ [facility] [id number] [facility] 2017-08-20 09:54:00 2017-08-24 09:52:00 Discharged Inpatient ER GLENN TILLEY [facility] [id number] [facility] 2017-08-05 08:13:00 2017-08-05 12:28:00 Departed Emergency Room ER MADELINE GILBERT [facility] [id number] [facility] 2017-07-30 08:25:00 2017-07-30 11:50:00 Departed Emergency Room ER MADELINE MCKEON [facility] [id number] [facility] 2017-07-03 07:56:00 2017-07-03 11:17:00 Departed Emergency Room ER MARTA BARROW [facility] [id number] [facility] 2016-11-24 18:59:00 2016-11-24 23:11:00 Departed Emergency Room [facility] [id number] [facility] Results Test Description Test Time Test Comments Results Result Comments Source CT ABDOMEN/PELVIS WO 2019-10-30 15:08:00 [place] [address] Patient Name: ANGELA ESPINOSA MR #: [id number] : 1975 Age/Sex: 43/F Req #: [id number] Adm Physician: Ordered by: NATALIA MORE DIGITAL MEDIA SPECIALIST Report #: [id number] Location: ER Room/Bed: Procedure: [id number] CT/CT ABDOMEN/PELVIS WO Exam Date: 10/30/19 Exam [...] LULU on 10/30/191516 COPY TO: NATALIA MORE DIGITAL MEDIA SPECIALIST - CT ABD PELVIS W/CONT 2019-10-13 11:13:00 Patie nt Name: ANGELA ESPINOSA Unit No: [id number] EXAMS: CPT CODE: [id number] CT ABD PELVIS W/CONT 82149 EXAM: - CT ABD PELVIS W/CONT Location: [...] Lymph nodes: No lymphadenopathy. Name: ANGELA ESPINOSA [facility] Phys: Roseanne Garber DO [address] : 1975 Age: 43 Sex: [place] [address] Loc: P.ERS Exam Date: 10/13/2019 Status: REG ER PH: FAX: PAGE 1 Signed Report (CONTINUED) Patient Name: ANGELA ESPINOSA Unit No: [id number] EXAMS: CPT CODE: [id number] CT ABD PELVIS W/CONT 90155 <Continued> Peritoneum/retroperitoneum: No intraabdominal free air or [...] Printed Date/Time: 10/13/2019 (1116) Name: ANGELA ESPINOSA [facility] Phys: Roseanne Garber DO [address] : 1975 Age: 43 Sex: [place] [address] Loc: P.ERS Exam Date: 10/13/2019 Status: REG [...] BA#) 0.05 x10 3/uL 0.0-0.20 N HCG [id number] 09:51:00* Test Item Value Reference Range Interpretation [...] - 71.24 141 9.5 - 7505 1398 984 - 34826 3339 466 - [id number] 06452 4101 - [id number] 97098 84906 - [id number] 754395 90642 - [id number] 98615 73461 - [id number] 79761 41632 - [id number] 95229 - [id number] 08380 88537 - [id number] 13234 9040 - [id number] 77984 8175 [id number] 90884 8085 - 04253 DATE OF LAST MENSTRUAL PERIOD: 10/13/19UA RFLX MICR CULT IF [id number] 09:48:00* Test Item Value Reference Range Interpretation [...] A Indication for culture: Suprapubic PainBASIC METABOLIC [id number] 09:45:00* Test Item Value Reference Range Interpretation [...] CA) 8.9 mg/dL 8.8-10.2 N LIVER FUNCTION [id number] 09:45:00* Test Item Value Reference Range Interpretation [...] code = ALKP) 98 U/L 32-104 N [id number] 09:45:00* Test Item Value Reference Range Interpretation Comments LIPASE (test code = LIP) 12 U/L 0-190 N LACTIC [id number] 09:37:00* Test Item Value Reference Range Interpretation Comments LACTIC ACID (test code = LACT) 17.7 mg/dL 4.5-18.0 N CBC W/AUTO [id number] 09:34:00* Test Item Value Reference Range Interpretation [...] 0.0-0.20 N UA RFLX MICR CULT IF [id number] 09:33:00* Test Item Value Reference Range Interpretation [...] code = ALKP) 99 units/L 46-116 N [id number] 08:35:00* Test Item Value Reference Range Interpretation Comments AMYLASE (test code = JANIE) 28 units/L 30-110 L [id number] 08:35:00* Test Item Value Reference Range Interpretation Comments LIPASE (test code = LIP) 60 units/L 73-393 L UA RFLX MICR CULT IF [id number] 08:27:00* Test Item Value Reference Range Interpretation [...] SEEN Indication for culture: Suprapubic PainUR HCG [id number] 08:27:00* Test Item Value Reference Range Interpretation Comments UR HCG QUAL (test code = HCGQLU) NEGATIVE 1. Very dilute urine specimens, as indicated by a lowspecific gravity, may not contain account retention representative levels ofhCG. 2. False negative results may occur when the levels of hCGare below the sensitivity level of the test. If is still suspected, a first morningurine specimen should be collected 48 hours later andtested. Indication for culture: Suprapubic PainCBC W/AUTO [id number] 08:17:00* Test Item Value Reference Range Interpretation [...] YOANA L UA RFLX MICR CULT IF [id number] 08:03:00* Test Item Value Reference Range Interpretation [...] RARE-FEW Indication for culture: Suprapubic PainUR HCG [id number] 08:03:00* Test Item Value Reference Range Interpretation Comments UR HCG QUAL (test code = HCGQLU) NEGATIVE 1. Very dilute urine specimens, as indicated by a lowspecific gravity, may not contain account retention representative levels ofhCG. 2. False negative results may occur when the levels of hCGare below the sensitivity level of the test. If is still suspected, a first morningurine specimen should be collected 48 hours later andtested. Indication for culture: Suprapubic PainDRUGS OF ABUSE [id number] 09:18:00* Test Item Value Reference Range Interpretation Comments UR COCAINE (test code = COCAU) NEGATIVE NEGATIVE DETECTION CUT OFF: 150 ng/mL UR CANNABINOIDS (test code = CANU) POSITIVE NEGATIVE A RESULTS CALLED TO [employer] BACK & CONFIRMED? [employer].LAB.KG 10/08/19916. DETECTION CUT OFF: 50 ng/mL UR AMPHETAMINE (test code = AMPHU) NEGATIVE NEGATIVE DETECTION CUT OFF: 500 ng/mL UR BARBITURATE QUAL (test code = BARBQLU) NEGATIVE NEGATIVE DETECTION CUT OFF: 200 ng/mL UR BENZODIAZEPINE (test code = BENZU) POSITIVE NEGATIVE A RESULTS CALLED TO [employer] BACK & CONFIRMED? [employer] F.LAB.KG 10/08/19916. DETECTION CUT OFF: 150 ng/mL UR OPIATES QUAL (test code = OPIAQLU) NEGATIVE NEGATIVE DETECTION CUT OFF: 100 ng/mL UR PHENCYCLIDINE (PCP) (test code = PHENCU) NEGATIVE NEGATIVE DETECTION CUT OFF: 25 ng/mL COMPREHENSIVE METABOLIC [id number] 09:18:00* Test Item Value Reference Range Interpretation [...] code = ALKP) 108 units/L 46-116 N [id number] 09:18:00* Test Item Value Reference Range Interpretation Comments AMYLASE (test code = JANIE) 52 units/L 30-110 N [id number] 09:18:00* Test Item Value Reference Range Interpretation Comments LIPASE (test code = LIP) 180 units/L 73-393 N BENZODIAZEPINE [id number] 09:18:00* Test Item Value Reference Range Interpretation Comments OXAZEPAM (test code = OXAZ) TEMAZEPAM (test code = CLAUDE) FLURAZEPAM (test code = FLUR) UA RFLX MICR CULT IF [id number] 08:29:00* Test Item Value Reference Range Interpretation [...] code = ALKP) 108 units/L 46-116 N [id number] 08:27:00* Test Item Value Reference Range Interpretation Comments AMYLASE (test code = JANIE) 52 units/L 30-110 N [id number] 08:27:00* Test Item Value Reference Range Interpretation Comments LIPASE (test code = LIP) 180 units/L 73-393 N UR HCG [id number] 08:21:00* Test Item Value Reference Range Interpretation Comments UR HCG QUAL (test code = HCGQLU) NEGATIVE 1. Very dilute urine specimens, as indicated by a lowspecific gravity, may not contain account retention representative levels ofhCG. 2. False negative results may occur when the levels of hCGare below the sensitivity level of the test. If is still suspected, a first morningurine specimen should be collected 48 hours later andtested. - XR ABDOMEN 1 [id number] 08:11:00 Patient Name: ANGELA ESPINOSA Unit No: [id number] EXAMS: CPT CODE: [id number] XR ABDOMEN 1 V 11512 EXAMINATION: Abdomen one view 10/08/2019 at 0756 [...] MD Technologist: RT Robert Trnscrbd D/ ([id number]) Silas[facility] Orig Print D/T: S: 10/08/2019 (813) [facility] NAME: ANGELA ESPINOSA Radiology Department PHYS: Robe Stauffer [address] : 1975 AGE: 43 SEX: F [place], [place] [address] LOC: ALIVIA PHONE #: [phone] EXAM DATE: 10/08/2019 ST ATUS: REG ER FAX #: [phone] RAD NO: Page 1 Signed Report CBC [...] = PLTMR) NORMAL YOANA L COMPREHENSIVE METABOLIC [id number] 11:47:00* Test Item Value Reference Range Interpretation [...] code = ALKP) 102 units/L 46-116 N [id number] 11:47:00* Test Item Value Reference Range Interpretation Comments LIPASE (test code = LIP) 126 units/L 73-393 N [id number] 11:47:00* Test Item Value Reference Range Interpretation Comments TROPONIN-I (test code = TROPI) <0.017 ng/mL <0.056 N UA RFLX MICR CULT IF [id number] 11:32:00* Test Item Value Reference Range Interpretation [...] SEEN Indication for culture: Suprapubic PainUR HCG [id number] 11:32:00* Test Item Value Reference Range Interpretation Comments UR HCG QUAL (test code = HCGQLU) NEGATIVE 1. Very dilute urine specimens, as indicated by a lowspecific gravity, may not contain account retention representative levels ofhCG. 2. False negative results may occur when the levels of hCGare below the sensitivity level of the test. If is still suspected, a first morningurine specimen should be collected 48 hours later andtested. Indication for culture: Suprapubic PainCBC W/AUTO [id number] 11:32:00* Test Item Value Reference Range Interpretation [...] YOANA L UA RFLX MICR CULT IF [id number] 11:25:00* Test Item Value Reference Range Interpretation [...] RARE-FEW Indication for culture: Suprapubic PainUR HCG [id number] 11:25:00* Test Item Value Reference Range Interpretation Comments UR HCG QUAL (test code = HCGQLU) NEGATIVE 1. Very dilute urine specimens, as indicated by a lowspecific gravity, may not contain account retention representative levels ofhCG. 2. False negative results may occur when the levels of hCGare below the sensitivity level of the test. If is still suspected, a first morningurine specimen should be collected 48 hours later andtested. Indication for culture: Suprapubic Pain- US ABDOMEN [id number] 14:16:00 Patient Name: ANGELA ESPINOSA Unit No: [id number] EXAMS: CPT CODE: [id number] US ABDOMEN COMPLETE 13012 EXAMINATION: Abdominal Ultrasound EXAM DATE: August 07, [...] Technologist: Melinda Marrufo RDMS Probe: Trnscrbd D/ (2506) t.SDR.CER Orig Print D/T: S: 09/25/2019 (4544) [facility] NAME: ANGELA DUPREE Radiology Department PHYS: Leslie Gold MD [address] : 1975 A GE: 43 SEX: F [place] [address] L OC: F.ERS PHONE #: [phone] EXAM DATE: 09/25/2019 STATU S: REG ER FAX #: [phone] RAD NO: Page 1 Signed Report Patient Name: ANGELA NAIR Unit No: [id number] EXAMS: CPT CODE: [id number] US ABDOMEN COMPLETE 18516 <Continued> [facility] NAME: ANGELA ESPINOSA Radiology Department PHYS: Leslie Levy MD [address] : 1975 AGE: 43 SEX: F [place] [address] LOC: F.ERS PHONE #: [phone] EXAM DATE: 09/25/2019 STATUS: REG ER FAX #: [phone] RAD NO: Page 2 Signed Report COMPREHENSIVE [...] 81 units/L 46-116 N DRUGS OF ABUSE [id number] 13:31:00* Test Item Value Reference Range Interpretation [...] YES.BY F.LAB. 09/25/19 1331. DETECTION CUT OFF: 150 ng/mL UR OPIATES QUAL (test code = OPIAQLU) NEGATIVE NEGATIVE DETECTION CUT OFF: 100 ng/mL UR PHENCYCLIDINE (PCP) (test code = PHENCU) NEGATIVE NEGATIVE DETECTION CUT OFF: 25 ng/mL UA RFLX MICR CULT IF [id number] 13:22:00* Test Item Value Reference Range Interpretation [...] A Indication for culture: Suprapubic PainUR HCG [id number] 13:22:00* Test Item Value Reference Range Interpretation Comments UR HCG QUAL (test code = HCGQLU) NEGATIVE 1. Very dilute urine specimens, as indicated by a lowspecific gravity, may not contain account retention representative levels ofhCG. 2. False negative results may occur when the levels of hCGare below the sensitivity level of the test. If is still suspected, a first morningurine specimen should be collected 48 hours later andtested. Indication for culture: Suprapubic PainCBC W/AUTO [id number] 13:17:00* Test Item Value Reference Range Interpretation [...] YOANA L UA RFLX MICR CULT IF [id number] 13:13:00* Test Item Value Reference Range Interpretation [...] RARE-FEW Indication for culture: Suprapubic PainUR HCG [id number] 13:13:00* Test Item Value Reference Range Interpretation Comments UR HCG QUAL (test code = HCGQLU) NEGATIVE 1. Very dilute urine specimens, as indicated by a lowspecific gravity, may not contain account retention representative levels ofhCG. 2. False negative results may occur when the levels of hCGare below the sensitivity level of the test. If is still suspected, a first morningurine specimen should be collected 48 hours later andtested. Indication for culture: Suprapubic PainLACTIC [id number] 16:41:00* Test Item Value Reference Range Interpretation Comments LACTIC ACID (test code = LACT) 1.5 mmol/L 0.4-1.9 N STREPTOCOCCUS PCR [id number] 16:24:00* Test Item Value Reference Range Interpretation Comments STREPTOCOCCUS DYSGALACTIAE (test code = STREPGC) NEGATIVE FOR G/C N EGATIVE STREPA MOLECULAR (test code = STREPAMOL) NEGATIVE FOR GRP A NEGATIV E - CT ABD PELVIS [id number] 16:06:00 Name: ANGELA ESPINOSA [facility] : 1975 Age/S: 43 / F [address] Unit #: [id number] Loc: [place] [address] Phys: Kye Pisano MD Acct: [id number] Dis Date: Status: REG ER PHONE #: [phone] Exam Date: 08/18/2019 1541 FAX #: [phone] Reason: RLQ pain EXAMS: CPT CODE: [id number] CT ABD PELVIS W/CONT 96584 HISTORY: Right lower quadrant pain. COMPARISON: August [...] 1 Signed Report (CONTINUED) Name: ANGELA ESPINOSA [facility] : 1975 Age/S: 43 / F [address] [facility] Unit #: [id number] [place] [address] Phys: Kye Pisano MD Acct: [id number] Dis Date: Status: REG ER PHONE #: [phone] Exam Date: 08/18/2019 154 FAX #: [phone] Reason: RLQ pain EXAMS: CPT CODE: [id number] ABD PELVIS W/CONT 58882 <Continued> IMPRESSION: Normal appendix (seen best in [...] (1606) t.SDR.TH4 Orig Print D/T: S: 08/18/2019 (9643) PAGE 2 Signed Report BASIC METABOLIC [id number] 14:15:00* Test Item Value Reference Range Interpretation [...] CA) 8.6 mg/dL 8.5-10.1 N HEPATIC FUNCTION [id number] 14:15:00* Test Item Value Reference Range Interpretation [...] reference range due to change in reagent. [id number] 14:15:00* Test Item Value Reference Range Interpretation Comments LIPASE (test code = LIP) 77 U/L 73.0-393.0 N HCG SERUM [id number] 14:15:00* Test Item Value Reference Range Interpretation Comments HCG SERUM QUAL (test code = HCGQL) NEGATIVE NEGATIVE This HCGQL test is NOT applicable for MALE patients.Check with nurse about probable order error.If Tumor Marker Test needed, nurse should order test "HCGTU"(Test #550.03436) [id number] 14:15:00* Test Item Value Reference Range Interpretation Comments TROPONIN-I (test code = TROPI) <0.015 ng/mL 0-0.045 N LACTIC [id number] 13:43:00* Test Item Value Reference Range Interpretation Comments LACTIC ACID (test code = LACT) 2.4 mmol/L 0.4-1.9 HH Results called to [id number] by VSilvaLAB.KP3 08/18/19 1342Critical results verified and read back by Nurse? YES BASIC METABOLIC [id number] 13:27:00* Test Item Value Reference Range Interpretation [...] CA) 8.6 mg/dL 8.5-10.1 N HEPATIC FUNCTION [id number] 13:27:00* Test Item Value Reference Range Interpretation [...] reference range due to change in reagent. [id number] 13:27:00* Test Item Value Reference Range Interpretation Comments LIPASE (test code = LIP) 77 U/L 73.0-393.0 N HCG SERUM [id number] 13:27:00* Test Item Value Reference Range Interpretation Comments HCG SERUM QUAL (test code = HCGQL) NEGATIVE [id number] 13:27:00* Test Item Value Reference Range Interpretation Comments TROPONIN-I (test code = TROPI) <0.015 ng/mL 0-0.045 N CBC W/O [id number] 12:59:00* Test Item Value Reference Range Interpretation [...] MPV) 9.3 fL 6.7-11.0 N CBC W/O [id number] 12:57:00* Test Item Value Reference Range Interpretation [...] (test code = MPV) fL 6.7-11.0 URINALYSIS [id number] 12:56:00* Test Item Value Reference Range Interpretation [...] #/LPF FEW Urine Source? Clean CatchB-TYPE NATRIURETIC [id number] 09:04:00* Test Item Value Reference Range Interpretation Comments B-TYPE NATRIURETIC PEPTIDE (test code = BNP) 22.48 pgram/mL 0-100 N BASIC METABOLIC [id number] 08:33:00* Test Item Value Reference Range Interpretation [...] CA) 8.5 mg/dL 8.5-10.1 N HEPATIC FUNCTION [id number] 08:33:00* Test Item Value Reference Range Interpretation [...] reference range due to change in reagent. [id number] 08:33:00* Test Item Value Reference Range Interpretation Comments LIPASE (test code = LIP) 148 U/L 73.0-393.0 N HCG SERUM [id number] 08:33:00* Test Item Value Reference Range Interpretation Comments HCG SERUM QUAL (test code = HCGQL) NEGATIVE NEGATIVE This HCGQL test is NOT applicable for MALE patients.Check with nurse about probable order error.If Tumor Marker Test needed, nurse should order test "HCGTU"(Test #550.16365) [id number] 08:33:00* Test Item Value Reference Range Interpretation Comments TROPONIN-I (test code = TROPI) <0.015 ng/mL 0-0.045 N BASIC METABOLIC [id number] 08:30:00* Test Item Value Reference Range Interpretation [...] code = CA) mg/dL 8.5-10.1 HEPATIC FUNCTION [id number] 08:30:00* Test Item Value Reference Range Interpretation [...] TOTAL (test code = ALKP) IUnit/L 45-117 [id number] 08:30:00* Test Item Value Reference Range Interpretation Comments LIPASE (test code = LIP) U/L 73.0-393.0 HCG SERUM [id number] 08:30:00* Test Item Value Reference Range Interpretation Comments HCG SERUM QUAL (test code = HCGQL) NEGATIVE NEGATIVE This HCGQL test is NOT applicable for MALE patients.Check with nurse about probable order error.If Tumor Marker Test needed, nurse should order test "HCGTU"(Test #550.39586) [id number] 08:30:00* Test Item Value Reference Range Interpretation Comments TROPONIN-I (test code = TROPI) ng/mL 0-0.045 BASIC METABOLIC [id number] 08:27:00* Test Item Value Reference Range Interpretation [...] code = CA) mg/dL 8.5-10.1 HEPATIC FUNCTION [id number] 08:27:00* Test Item Value Reference Range Interpretation [...] TOTAL (test code = ALKP) IUnit/L 45-117 [id number] 08:27:00* Test Item Value Reference Range Interpretation Comments LIPASE (test code = LIP) U/L 73.0-393.0 HCG SERUM [id number] 08:27:00* Test Item Value Reference Range Interpretation Comments HCG SERUM QUAL (test code = HCGQL) NEGATIVE NEGATIVE This HCGQL test is NOT applicable for MALE patients.Check with nurse about probable order error.If Tumor Marker Test needed, nurse should order test "HCGTU"(Test #550.89245) [id number] 08:27:00* Test Item Value Reference Range Interpretation Comments TROPONIN-I (test code = TROPI) ng/mL 0-0.045 CBC W/O [id number] 07:47:00* Test Item Value Reference Range Interpretation [...] code = MPV) fL 6.7-11.0 CBC W/O [id number] 07:47:00* Test Item Value Reference Range Interpretation [...] fL 6.7-11.0 N - XR CHEST 1 [id number] 07:46:00 FAX: India Bryson NP Shepherd: [facility]: [facility] FAX: Jorge Figueroa NP [phone] Name: ANGELA ESPINOSA [facility] : 1975 Age/S: 43/F [address] [facility] Unit #: [id number] Loc: [place] [address] Phys: India Bryson NP Acct: [id number] Dis Date: Status: DEP ER PHONE #: [phone] Exam Date: 08/14/201936 FAX #: [phone] Reason: Abdominal Pain EXAMS: CPT CODE: [id number] XR CHEST 1 V 16277 HISTORY: Abdominal Pain TECHNIQUE: AP chest x-ray [...] Signed Report - XR ABDOMEN AP 1 [id number] 07:46:00 FAX: India Bryson NP Shepherd: St: [facility] FAX: Jorge Figueroa NP [phone] Name: ANGELA ESPINOSA [facility] : 1975 Age/S: 43/F [address] [facility] Unit #: [id number] Loc: [place] [address] Phys: India Bryson NP Acct: [id number] Dis Date: Status: [facility] ER PHONE #: [phone] Exam Date: 08/14/2019 0736 FAX #: [phone] Reason: vomiting EXAMS: CPT CODE: [id number] XR ABDOMEN AP 1 V 66654 HISTORY: vomiting TECHNIQUE: AP abdomen x-ray COMPARISON: [...] JENNA BOYLE RT(R) Trnscrd Date/Time/By: 08/14/19 20 (4077) : By: [email or web address] Orig Print D/T: S: 08/14/2019 (3291) PAGE 1 Signed Report - XR CHEST 1 [id number] 07:46:00 FAX: India Bryson NP Shepherd: St: REG FAX: Y Jorge Butt NP [phone] Name: ANGELA ESPINOSA [facility] : 1975 Age/S: 43/F [address] [facility] Unit #: [id number] Loc: [place] [address] Phys: India Bryson NP Acct: [id number] Dis Date: Status: REG ER PHONE #: [phone] Exam Date: 08/14/2019735 FAX #: [phone] Reason: Abdominal Pain EXAMS: CPT CODE: [id number] XR CHEST 1 V 12957 HISTORY: Abdominal Pain TECHNIQUE: AP chest x-ray COMPARISON: 08/01/19 FINDINGS: No airspace consolidation or pleural effusion. Normal heart size. Mediastinal silhouette is unremarkable. Visualized osseous structures are grossly intact. IMPRESSION: No radiographic evidence of acute c ardiopulmonary process. LOCATION: [facility] at 0746 Reported and signed by: Jacklyn De Leon D.O. CC: India Bryson NP; Jorge Butt NP Technologist: JENNA BOYLE RT(R) Trnakrd Date/Time/By: 08/14/19 20 (0746) : By: [email or web address] Orig Print D/T: S: 08/14/2019 (0749) PAGE 1 Signed Report - XR ABDOMEN AP 1 [id number] 07:46:00 FAX: India Bryson NP Shepherd: St: [facility] FAX: Y Jorge Butt NP [phone] Name: ANGELA ESPINOSA [facility] : 1975 Age/S: 43/F [address] [facility] Unit #: [id number] Loc: [place] [address] Phys: India Bryson NP Acct: [id number] Dis Date: Status: REG ER PHONE #: [phone] Exam Date: 08/14/2019 0736 FAX #: [phone] Reason: vomiting EXAMS: CPT CODE: [id number] XR ABDOMEN AP 1 V 62912 HISTORY: vomiting TECHNIQUE: AP abdomen x-ray COMPARISON: [...] By: [email or web address] Orig Print D/T: S: 08/14/2019 (0750) PAGE 1 Signed Report URINALYSIS [id number] 07:16:00* Test Item Value Reference Range Interpretation [...] #/LPF FEW Urine Source? Clean CatchCOMPREHENSIVE METABOLIC [id number] 08:46:00* Test Item Value Reference Range Interpretation [...] due to change in reagent. COMPREHENSIVE METABOLIC [id number] 08:39:00* Test Item Value Reference Range Interpretation [...] code = ALKP) IUnit/L 45-117 CBC W/AUTO [id number] 08:31:00* Test Item Value Reference Range Interpretation [...] result is a direct measurement.========= THYROID STIMULATING [id number] 23:12:00* Test Item Value Reference Range Interpretation Comments THYROID STIMULATING HORMONE (test code = TSH) 4.640 uIU/mL 0.36-3.7 4 H TSH REFERENCE RANGES: EUTHYROID: 0.35 - 4.3 mIU/mL HYPO : > 5.5 mIU/mL HYPER : < 0.35 mIU/mL [id number] 23:09:00* Test Item Value Reference Range Interpretation Comments GLYCOSYLATED HEMOGLOBIN (HA1C) (test code = GLYHGB) 5.3 % HbA1 SUGGESTED DIAGNOSIS: HbA1C (%) Diabetic >6.4Prediabetes 5.7 - 6.4Normal <5.7 ESTIMATED AVERAGE GLUCOSE (test code = EAG) 105 MG/DL [id number] 20:42:00* Test Item Value Reference Range Interpretation Comments TROPONIN-I (test code = TROPI) <0.015 ng/mL 0-0.045 N COMMENTS 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: COLLECT 3 HOURS AFTER PREVIOUS [id number] 16:52:00* Test Item Value Reference Range Interpretation Comments TROPONIN-I (test code = TROPI) <0.015 ng/mL 0-0.045 N COMMENTS 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: COLLECT 3 HOURS AFTER PREVIOUS SAMPLE- CT ABD PELVIS [id number] 13:49:00 Name: ANGELA ESPINOSA [facility] : 1975 Age/S: 43 / F [address] [facility] Unit #: [id number] Loc: [place] [address] Phys: Kye Pisano MD Acct: [id number] Dis Date: 08/02/2019 Status: DIS IN PHONE #: [phone] Exam Date: 08/01/20197 FAX #: [phone] Reason: epigastric pain EXAMS: CPT CODE: [id number] CT ABD PELVIS W/CONT 72835 REASON FOR EXAM: cp rad back EXAM [...] 1 Signed Report (CONTINUED) Name: ANGELA ESPINOSA [facility] : 1975 Age/S: 43 / F [address] [facility] Unit #: [id number] Loc: [place] [address] Phys: Kye Pisano MD Acct: [id number] Dis Date: 08/02/2019 Status: DIS IN PHONE #: [phone] Exam Date: 08/01/20197 FAX #: [phone] Reason: epigastric pain EXAMS: CPT CODE: [id number] ABD PELVIS W/CONT 36176 < Continued> Abdominal vascular structures: Retroaortic left renal vein Peritoneum and retroperitoneum: No free fluid or free air. No omental or mesenteric masses. No abnormal lymph nodes. Musculoskeletal structures, chest wall, and abdominal wall: Normal IMPRESSION: Hepatomegaly with hepatic steatosis. Nonobstructing stone in the midpole of the left kidney. No inflammatory changes are seen in the left kidney. Location: [facility] ED at 1349 Reported and signed by: Sanjay Roman MD CC: Kye Pisano MD Technologist:Lupillo Forrest RT(R)(CT) CTDI: DLP: Trnscb Date/Time: 08/01/2019 (8841) t.SDR.RR31 Orig Print D/T: S: 08/01/2019 (9269) PAGE 2 Signed Report - CTA CHEST 2019-08-01 13:49:00 Name: ANGELA ESPINOSA [facility] : 1975 Age/S: 43 / F [address] [facility] Unit #: [id number] Loc: [place] [address] Phys: Kye Pisano MD Acct: [id number] Dis Date: 08/02/2019 Status: DIS IN PHONE #: [phone] Exam Date: 08/01/2019 1317 FAX #: [phone] Reason: cp rad back EXAMS: CPT CODE: [id number] CTA CHEST 88578 REASON FOR EXAM: cp rad back EXAM [...] 1 Signed Report (CONTINUED) Name: ANGELA ESPINOSA [facility] : 1975 Age/S: 43 / F [address] [facility] Unit #: [id number] Loc: [place] [address] Phys: Kye Pisano MD Acct: [id number] Dis Date: 08/02/2019 Status: DIS IN PHONE #: [phone] Exam Date: 08/01/2019 1317 FAX #: [phone] Reason: cp rad back EXAMS: CPT CODE: 0 [id number] CTA CHEST 06607 < Continued> Abdominal vascular structures: Retroaortic left renal vein Peritoneum and retroperitoneum: No free fluid or free air. No omental or mesenteric masses. No abnormal lymph nodes. Musculoskeletal structures, chest wall, and abdominal wall: Normal IMPRESSION: Hepatomegaly with hepatic steatosis. Nonobstructing stone in the midpole of the left kidney. No inflammatory changes are seen in the left kidney. Location: [facility] ED at 1349 Reported and signed by: Sanjay Roman MD CC: Kye Pisano MD Technologist:Lupillo Forrest RT(R)(CT) CTDI: DLP: Trnscb Date/Time: 08/01/2019 (1349) t.SDR.RR31 Orig Print D/T: S: 08/01/2019 (9922) PAGE 2 Signed Report - CT ABD PELVIS W/[id number] 13:49:00 Name: ANGELA ESPINOSA [facility] : 1975 Age/S: 43 / F [address] Unit #: [id number] Loc: [place] [address] Phys: Kye Pisano MD Acct: [id number] Dis Date: Status: ADM IN PHONE #: [phone] Exam Date: 08/01/20197 FAX #: [phone] Reason: epigastric pain EXAMS: CPT CODE: [id number] CT ABD PELVIS W/CONT 23997 REASON FOR EXAM: cp rad back EXAM [...] 1 Signed Report (CONTINUED) Name: ANGELA ESPINOSA [facility] : 1975 Age/S: 43 / F [address] [facility] Unit #: [id number] Loc: [place] [address] Phys: Kye Pisano MD Acct: [id number] Dis Date: Status: ADM IN PHONE #: [phone] Exam Date: 08/01/20197 FAX #: [phone] Reason: epigastric pain EXAMS: CPT CODE: [id number] ABD PELVIS W/CONT 69041 < Continued> Abdominal vascular structures: Retroaortic left renal vein Peritoneum and retroperitoneum: No free fluid or free air. No omental or mesenteric masses. No abnormal lymph nodes. Musculoskeletal structures, chest wall, and abdominal wall: Normal IMPRESSION: Hepatomegaly with hepatic steatosis. Nonobstructing stone in the midpole of the left kidney. No inflammatory changes are seen in the left kidney. Location: [facility] ED at 1349 Reported and signed by: Sanjay Roman MD CC: Kye Pisano MD Technologist:Lupillo Forrest RT(R)(CT) CTDI: DLP: Trnscb Date/Time: 08/01/2019 (1349) t.SDR.RR31 Orig Print D/T: S: 08/01/2019 (8544) PAGE 2 Signed Report - CTA CHEST 2019-08-01 13:49:00 Name: ANGELA ESPINOSA [facility] : 1975 Age/S: 43 / F [address] [facility] Unit #: [id number] Loc: [place] [address] Phys: Kye Pisano MD Acct: [id number] Dis Date: Status: ADM IN PHONE #: [phone] Exam Date: 08/01/2019 1317 FAX #: [phone] Reason: cp rad back EXAMS: CPT CODE: [id number] CTA CHEST 63807 REASON FOR EXAM: cp rad back EXAM [...] 1 Signed Report (CONTINUED) Name: ANGELA ESPINOSA [facility] : 1975 Age/S: 43 / F [address] [facility] Unit #: [id number] Loc: [place] [address] Phys: Kye Pisano MD Acct: [id number] Dis Date: Status: ADM IN PHONE #: [phone] Exam Date: 08/01/2019 1317 FAX #: [phone] Reason: cp rad back EXAMS: CPT CODE: 0 [id number] CTA CHEST 11240 < Continued> Abdominal vascular structures: Retroaortic left renal vein Peritoneum and retroperitoneum: No free fluid or free air. No omental or mesenteric masses. No abnormal lymph nodes. Musculoskeletal structures, chest wall, and abdominal wall: Normal IMPRESSION: Hepatomegaly with hepatic steatosis. Nonobstructing stone in the midpole of the left kidney. No inflammatory changes are seen in the left kidney. Location: [facility] ED at 1349 Reported and signed by: Sanjay Roman MD CC: Kye Pisano MD Technologist:Lupillo Forrest RT(R)(CT) CTDI: DLP: Trnscb Date/Time: 08/01/2019 (1349) t.SDR.RR31 Orig Print D/T: S: 08/01/2019 (6749) PAGE 2 Signed Report HEPATIC FUNCTION [id number] 12:32:00* Test Item Value Reference Range Interpretation [...] reference range due to change in reagent. [id number] 12:32:00* Test Item Value Reference Range Interpretation Comments LIPASE (test code = LIP) 46 U/L 73.0-393.0 L BASIC METABOLIC [id number] 12:29:00* Test Item Value Reference Range Interpretation [...] CA) 8.7 mg/dL 8.5-10.1 N HCG SERUM [id number] 12:29:00* Test Item Value Reference Range Interpretation Comments HCG SERUM QUAL (test code = HCGQL) NEGATIVE NEGATIVE This HCGQL test is NOT applicable for MALE patients.Check with nurse about probable order error.If Tumor Marker Test needed, nurse should order test "HCGTU"(Test #550.66282) [id number] 12:29:00* Test Item Value Reference Range Interpretation Comments TROPONIN-I (test code = TROPI) <0.015 ng/mL 0-0.045 N [id number] 12:08:00* Test Item Value Reference Range Interpretation [...] skin infections -Liver cirrhosis - BASIC METABOLIC [id number] 10:31:00* Test Item Value Reference Range Interpretation [...] CA) 8.7 mg/dL 8.5-10.1 N HCG SERUM [id number] 10:31:00* Test Item Value Reference Range Interpretation Comments HCG SERUM QUAL (test code = HCGQL) NEGATIVE [id number] 10:31:00* Test Item Value Reference Range Interpretation Comments TROPONIN-I (test code = TROPI) <0.015 ng/mL 0-0.045 N BASIC METABOLIC [id number] 09:51:00* Test Item Value Reference Range Interpretation [...] code = CA) mg/dL 8.5-10.1 HCG SERUM [id number] 09:51:00* Test Item Value Reference Range Interpretation Comments HCG SERUM QUAL (test code = HCGQL) NEGATIVE [id number] 09:51:00* Test Item Value Reference Range Interpretation Comments TROPONIN-I (test code = TROPI) ng/mL 0-0.045 CBC W/O [id number] 09:36:00* Test Item Value Reference Range Interpretation [...] MPV) 9.6 fL 6.7-11.0 N CBC W/O [id number] 09:31:00* Test Item Value Reference Range Interpretation [...] code = MPV) fL 6.7-11.0 - XR [facility] 1 [id number] 08:32:00 FAX: Kye Pisano MD [phone] Shepherd: Alex St: DIS Name: ANGELA DUPREE [facility] : [birth year] Age/S: 43/F [address] [facility] Unit #: [id number] Loc: [place] [address] Phys: Kye Pisano MD Acct: [id number] Dis Date: [id number] Status: DIS IN PHONE #: [phone] Exam Date: 08/01/2019 08 FAX #: [phone] Reason: CHEST PAIN EXAMS: CPT CODE: [id number] XR CHEST 1 V 87401 REASON FOR EXAM: CHEST PAIN Exam Order [...] ystectomy. IMPRESSION: No acute cardiopulmonary process. Location: [facility] ED at 0832 Reported and signed b y: Sanjay Roman MD CC: Kye Pisano MD Technologist: Naren Quezada RT(R) Tr nscrd Date/Time/By: 08/01/2019 (32) : By: [email or web address] Orig Print D/T: S: 08/01/2019 (0835) PAGE 1 Inés d Report - XR CHEST 1 [id number] 08:32:00 FAX: Kye Pisano MD [phone] Shepherd: B St: REG Name: ANGELA DUPREE [facility] : [birth year] Age/S: 43/F [address] [facility] Unit #: [id number] Loc: [place] [address] Phys: Kye Pisano MD Acct: [id number] Dis Date: Status: REG ER PHONE #: [phone] Exam Date: 08/01/2019 0807 FAX #: [phone] Reason: CHEST PAIN EXAMS: CPT CODE: [id number] XR CHEST 1 V 76724 REASON FOR EXAM: CHEST PAIN Exam Order [...] ystectomy. IMPRESSION: No acute cardiopulmonary process. Location: [facility] ED at 0832 Reported and signed b y: Sanjay Roman MD CC: Kye Pisano MD Technologist: Naren Quezada RT(R) Tr nscrd Date/Time/By: 08/01/2019 (831) : By: t.DIONR.[email or web address] Orig Print D/T: S: 08/01/2019 (0804) PAGE 1 Inés d Report - CT C-SPINE W/O [id number] 12:54:00 Patient Name: ANGELA ESPINOSA Unit No: [id number] EXAMS : CPT CODE: [id number] CT C-SP INE W/O CONT 95330 CT cervical spine w ithout contrast 07/10/2019 [...] Dt/Tm: 07/10/2019 (1254) by:[email or web address] Printed Date/Time: 07/10/2019 (8053) Name: STEWART BELLAOPALANGELA [facility] Phys: Homer Lopez MD [address] : 1975 Age: 43 Sex: [place] [address] Loc: DulceMere RS Exam Date: 07/10/2019 Status: REG ER PH: FAX: PAGE 1 Signed Report - CT HEAD/BRAIN W/O [id number] 12:46:00 Patient Name: ANGELA ESPINOSA Unit No: [id number] EXAMS : CPT CODE: [id number] CT HEAD /BRAIN W/O CONT 54106 EXAMINATION: - CT HEAD/BRAIN W/O CONT. LOCATION: A1. HISTORY: left occ ipital WYMAN, LUE numbness. COMPARISON: CT head dated 02/05/2019. TECHNIQUE: Multiple transaxial images were obtained from the vertex to the skull base without IV contrast. This exam was performed according to our departmental dose-optimization program, which includes au tomated exposure control, adjustment of the mA and/or kV according to priti ent size, and/or use of iterative reconstruction [...] 07/10/2019 (1246) by:Ana NEELYPR7 Printed Date/Time: 07/10/2019 (8465) Name: [facility] Phys: Homer Lopez MD [address] : 1975 Age: 43 Sex: [place] [address] Loc: P.ERS Exam Date: 01/2020 Status: REG ER PH: FAX: PAGE 1 Signed Report - XR CHEST 1 [id number] 12:25:00Patient Name: ANGELA ESPINOSA Unit No: [id number] EXAMS: CPT CODE: [id number] XR CHEST 1 V 01689 EXAMINATION: - XR CHEST 1 V. LOCATION: [...] Dt/Tm: 07/10/2019 (1225) by:[email or web address] Printed Date/Time: 07/10/2019 (2968) Name: [facility] Phys: Homer Lopez MD [address] : 1975 Age: 43 Sex: [place] [address] [facility] No: [id number] Loc: LENY Exam Date: 07/10/2019 Status: REG ER PH: FAX: PAGE 1 Signed Report DRUGS OF ABUSE SCREEN [id number] 12:18:00* Test Item Value Reference Range Interpretation [...] 25 ng/mL. The method performed by the [facility]for [facility] Drugs of Abuse is performed as a medical screeningtest only. If confirmation testing is required, thephysician must order the confirmatory test within 5 days ofthe specimen's collection date. The specimen will be sentout to an independent reference laboratory. URINALYSIS [id number] 12:14:00* Test Item Value Reference Range Interpretation [...] = LEUU) TRACE NEGA TIVE A UA [id number] 12:14:00* Test Item Value Reference Range Interpretation Comments UA WBC (test code = WBCU) 3-5 #WBC/HPF 0-2 A UA RBC (test code = RBCU) NONE SEEN #RBC/HPF 0-2 UA BACTERIA (test code = BACU) 1+ /HPF NONE-TRACE A UA SQUAMOUS CELLS (test code = SQU) 1+ /LPF NONE-TRACE A UA MUCUS (test code = MUCU) OCCASIONAL /LPF NONE SEEN A COMPREHENSIVE METABOLIC [id number] 12:11:00* Test Item Value Reference Range Interpretation [...] code = ALKP) 104 U/L 32-104 N [id number] 12:11:00* Test Item Value Reference Range Interpretation Comments LIPASE (test code = LIP) 39 U/L 0-190 N [id number] 12:11:00* Test Item Value Reference Range Interpretation Comments MAGNESIUM (test code = MAG) 1.7 mg/dL 1.4-2.6 N [id number] 12:11:00* Test Item Value Reference Range Interpretation Comments ALCOHOL (test code = ALC) <10 mg/dl 0-450 N [id number] 12:11:00* Test Item Value Reference Range Interpretation Comments TROPONIN-I (test code = TROPI) <0.3 ng/mL 0.00-0.30 N INTERPRETATIVE DATA:Negative or inconclusive reuslts do not exclude myocardialinfarction. Serial tests at appropriate intervals may benecessary. URINALYSIS [id number] 12:03:00* Test Item Value Reference Range Interpretation [...] = LEUU) TRACE NEGA TIVE A UA [id number] 12:03:00* Test Item Value Reference Range Interpretation Comments UA WBC (test code = WBCU) #WBC/HPF 0-2 UA RBC (test code = RBCU) #RBC/HPF 0-2 UA BACTERIA (test code = BACU) /HPF NONE-TRACE UA SQUAMOUS CELLS (test code = SQU) /LPF NONE-TRACE URINALYSIS [id number] 12:03:00* Test Item Value Reference Range Interpretation [...] = LEUU) TRACE NEGA TIVE A UA [id number] 12:03:00* Test Item Value Reference Range Interpretation Comments UA WBC (test code = WBCU) #WBC/HPF 0-2 UA RBC (test code = RBCU) #RBC/HPF 0-2 UA BACTERIA (test code = BACU) /HPF NONE-TRACE UA SQUAMOUS CELLS (test code = SQU) /LPF NONE-TRACE PROTHROMBIN [id number] 12:01:00* Test Item Value Reference Range Interpretation [...] heart valves; 2.5-3.5recurrent systemic embolism. CBC W/AUTO [id number] 11:53:00* Test Item Value Reference Range Interpretation [...] 3/uL 0.0-0.20 N DRUGS OF ABUSE SCREEN [id number] 09:32:00* Test Item Value Reference Range Interpretation [...] = [place]URN) NEGATIVE <300 ng/mL HEPATIC FUNCTION [id number] 09:18:00* Test Item Value Reference Range Interpretation [...] reference range due to change in reagent. [id number] 09:18:00* Test Item Value Reference Range Interpretation [...] ANADDITIONAL CHARGE TO THE PATIENT. BASIC METABOLIC [id number] 09:14:00* Test Item Value Reference Range Interpretation [...] code = CA) 10.4 mg/dL 8.5-10.1 H [id number] 09:14:00* Test Item Value Reference Range Interpretation Comments TROPONIN-I (test code = TROPI) <0.015 ng/mL 0-0.045 N BASIC METABOLIC [id number] 09:08:00* Test Item Value Reference Range Interpretation [...] CALCIUM (test code = CA) mg/dL 8.5-10.1 [id number] 09:08:00* Test Item Value Reference Range Interpretation Comments TROPONIN-I (test code = TROPI) ng/mL 0-0.045 URINALYSIS [id number] 09:05:00* Test Item Value Reference Range Interpretation [...] Urine Source? Clean CatchDRUGS OF ABUSE SCREEN [id number] 09:05:00* Test Item Value Reference Range Interpretation [...] (test code = METHAURN) <300 ng/mL PROTHROMBIN [id number] 09:05:00* Test Item Value Reference Range Interpretation [...] (2.5-3.5) IS PATIENT ON ANTICOAGULANTS? NTHROMBOPLASTIN TIME [id number] 09:05:00* Test Item Value Reference Range Interpretation Comments THROMBOPLASTIN TIME PARTIAL (test code = PTT) 36.8 seconds 25.0-36. 5 H IS PATIENT ON ANTICOAGULANTS? NCBC W/AUTO [id number] 08:57:00* Test Item Value Reference Range Interpretation [...] code = NRBC#) 0.00 K/mm3 0.0-0.1 N [id number] 07:52:00* Test Item Value Reference Range Interpretation Comments TROPONIN-I (test code = TROPI) <0.015 ng/mL 0-0.045 N COMMENTS 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: COLLECT 3 HOURS AFTER PREVIOUS [id number] 23:29:00* Test Item Value Reference Range Interpretation Comments TROPONIN-I (test code = TROPI) <0.015 ng/mL 0-0.045 N DRUGS OF ABUSE SCREEN [id number] 22:04:00* Test Item Value Reference Range Interpretation [...] NEGATIVE <300 ng/mL DRUGS OF ABUSE SCREEN [id number] 21:39:00* Test Item Value Reference Range Interpretation [...] code = [place]) <300 ng/mL - CTA [id number] 21:01:00 Name: EJSÚSREJIA [facility] : 1975 Age/S: 43 / F [address] [facility] Unit #: [id number] Loc: [place] [address] Phys: Gaby Salazar MD Acct: [id number] Dis Date: Status: REG ER PHONE #: [phone] Exam Date: 06/20/20192049 FAX #: [phone] Reason: left sided weakness EXAMS: CPT CODE: [id number] CTA HEAD 34979 REASON FOR EXAM: left sided weakness EXAM ORDER DATE: 06/20/2019 8:18 PM Ordering: Gaby Salazar MD Attending:Gaby Salazar MD Location:[facility] PROCEDURE: - CTA HEAD COMPARISON: FINDINGS: Axial images of the head were obtained with IV contrast. Dose reduction techniques were applied. Reconstructed 3-D angiogram of the cerebral vessels as well as intraluminal vessel analysis were also provided for interpretation The visualized segment of the ICAs are unremarkable. The ACAs, MCAs, and network security officer are unremarkable. The basilar artery is within normal limits IMPRESSION: Unremarkable cerebral angiogram at 2100 Reported and signed by: Eliezer Pinto M.D. CC: Gaby Salazar MD Technologist:RT DAVIS(R) CT CTDI: DLP: Trnscb Date/Time: 06/20/2019 (2100) t.SDR.VTL Orig Print D/T: S: 06/20/2019 (2103) PAGE 1 Signed Report - CTA [id number] 20:58:00 Name: ANGELA ESPINOSA [facility] : 1975 Age/S: 43 / F [address] [facility] Unit #: [id number] Loc: [place] [address] Phys: Rudy Salazar MD Acct: [id number] Di s Date: Status: REG ER PHONE #: [phone] Exam Date: 06/20/20192049 FAX #: Reason: left sided weakness EXAMS: CPT CODE: [id number] CTA NECK 84660 REASON FOR EXAM: left sided weakness EXAM ORDER DATE: 06/20/2019 8:18 PM Ordering: Gaby Salazar MD Attending:Gaby Salazar MD Locat ion:[facility] PROCEDURE: - CTA NECK COMPARISON: FINDINGS: Axial [...] (2100) PAGE 1 Signed Report BASIC METABOLIC [id number] 19:15:00* Test Item Value Reference Range Interpretation [...] CA) 10.5 mg/dL 8.5-10.1 H HCG SERUM [id number] 19:15:00* Test Item Value Reference Range Interpretation Comments HCG SERUM QUAL (test code = HCGQL) NEGATIVE NEGATIVE This HCGQL test is NOT applicable for MALE patients.Check with nurse about probable order error.If Tumor Marker Test needed, nurse should order test "HCGTU"(Test #550.05203) [id number] 19:15:00* Test Item Value Reference Range Interpretation Comments TROPONIN-I (test code = TROPI) <0.015 ng/mL 0-0.045 N - XR CHEST 1 [id number] 19:14:00 FAX: Gaby Salazar MD Shepherd: St: REG Name: ANGELA DUPREE [facility] : [birth year]/27/[birth year] Age/S: 43/F [address] [facility] Unit #: [id number] Loc: [place] [address] Phys: Gaby Salazar MD Acct: [id number] Dis Date: Status: REG ER PHONE #: [phone] Exam Date: 06/20/20191912 FAX #: [phone] Reason: CODE STROKE EXAMS: CPT CODE: [id number] XR CHEST 1 V 81265 REASON FOR EXAM: CODE STROKE EXAM ORDER DATE: 06/20/2019 6:30 PM Ordering: Gaby Salazar MD Attending:Gaby Salazar MD Location:[facility] PROCEDURE: - XR CHEST 1 V COMPARISON: [...] code = CA) mg/dL 8.5-10.1 HCG SERUM [id number] 19:09:00* Test Item Value Reference Range Interpretation Comments HCG SERUM QUAL (test code = HCGQL) NEGATIVE NEGATIVE This HCGQL test is NOT applicable for MALE patients.Check with nurse about probable order error.If Tumor Marker Test needed, nurse should order test "HCGTU"(Test #550.87287) [id number] 19:09:00* Test Item Value Reference Range Interpretation Comments TROPONIN-I (test code = TROPI) ng/mL 0-0.045 [id number] 19:06:00* Test Item Value Reference Range Interpretation [...] ANADDITIONAL CHARGE TO THE PATIENT. BASIC METABOLIC [id number] 19:00:00* Test Item Value Reference Range Interpretation [...] code = CA) mg/dL 8.5-10.1 HCG SERUM [id number] 19:00:00* Test Item Value Reference Range Interpretation Comments HCG SERUM QUAL (test code = HCGQL) NEGATIVE [id number] 19:00:00* Test Item Value Reference Range Interpretation Comments TROPONIN-I (test code = TROPI) ng/mL 0-0.045 PROTHROMBIN [id number] 18:57:00* Test Item Value Reference Range Interpretation [...] (2.5-3.5) IS PATIENT ON ANTICOAGULANTS? NTHROMBOPLASTIN TIME [id number] 18:57:00* Test Item Value Reference Range Interpretation Comments THROMBOPLASTIN TIME PARTIAL (test code = PTT) 36.9 seconds 25.0-36. 5 H IS PATIENT ON ANTICOAGULANTS? NCBC W/AUTO [id number] 18:57:00* Test Item Value Reference Range Interpretation [...] = MDIFF) NO - CT HEAD/BRAIN W/O [id number] 18:53:00 Name: ANGELA ESPINOSA [facility] : 1975 Age/S: 43 / F [address] [facility] Unit #: [id number] Loc: [place] [address] Phys: Gaby Salazar MD Acct: [id number] Dis Date: Status: PRE ER PHONE #: [phone] Exam Date: 06/20/2019 1843 FAX #: [phone] Reason: left arm weakness and facial weakness EXAMS: CPT CODE: [id number] CT HEAD/BRAIN W/O CONT 38776 REASON FOR EXAM: left arm weakness and facial weakness EXAM ORDER DATE: 06/20/2019 6:30 PM Ordering: Gaby Salazar MD Attending:Gaby Salazar MD Location:[facility] PROCEDURE: - CT HEAD/BRAIN W/O CONT COMPARISON: [...] PURPOSES ONL Y RESULT CODE: CVR at 185 Reported an d signed by: Eliezer Pinto M.D. CC: Gaby Salazar MD Technologist:Katie BOGGS(R); NAREN Lewis CTDI: DLP: Trnscb Date/Time: 06/20/2019 (1852) SilasVTL Orig P rint D/T: S: 06/20/2019 (1856) PAGE 1 Signed Report PROTHROMBIN [id number] 13:09:00* Test Item Value Reference Range Interpretation [...] Mechanical prosthetic heart valves (2.5-3.5) THROMBOPLASTIN TIME [id number] 13:09:00* Test Item Value Reference Range Interpretation Comments THROMBOPLASTIN TIME PARTIAL (test code = PTT) 34.8 seconds 25.0-36. 5 N [id number] 13:09:00* Test Item Value Reference Range Interpretation Comments FIBRINOGEN (test code = FIB) 296 mg/dL 200-400 N FIBRIN SPLIT [id number] 13:09:00* Test Item Value Reference Range Interpretation Comments FIBRIN SPLIT PRODUCT (test code = FSP) <5 ug/mL <5 Performed At: [facility] [id number] Paulson MD Ph:[phone] G-[id number] 13:09:00* Test Item Value Reference Range Interpretation Comments D-DIMER (test code = DDIMER) 526.00 ng/mLFEU 0-500 HH Results called to EYL1013 by V.LAB.LT 06/16/192015Critical results verified and read [...] activity levels possibly masking a deficiency.Performed At: [facility] [id number] Paulson MD Ph:[phone] PROTHROMBIN [id number] 12:08:00* Test Item Value Reference Range Interpretation [...] Mechanical prosthetic heart valves (2.5-3.5) THROMBOPLASTIN TIME [id number] 12:08:00* Test Item Value Reference Range Interpretation Comments THROMBOPLASTIN TIME PARTIAL (test code = PTT) 34.8 seconds 25.0-36. 5 N [id number] 12:08:00* Test Item Value Reference Range Interpretation Comments FIBRINOGEN (test code = FIB) 296 mg/dL 200-400 N FIBRIN SPLIT [id number] 12:08:00* Test Item Value Reference Range Interpretation Comments FIBRIN SPLIT PRODUCT (test code = FSP) mcg/mL <5 [id number] 12:08:00* Test Item Value Reference Range Interpretation Comments D-DIMER (test code = DDIMER) 526.00 ng/mLFEU 0-500 HH Results called to [id number] by JENYLT 06/16/192015Critical results verified and read [...] activity levels possibly masking a deficiency.Performed At: [address] [id number] Sanjai MD Ph:[phone] SED [id number] 01:32:00* Test Item Value Reference Range Interpretation Comments SED RATE (test code = SEDW) 8 mm/hr 0-20 WINTROBE METHOD: NORMAL RANGE FOR MEN: 0-9 MM/HR WOMAN: 0-20 MM/HR [id number] RODNEYSED RATE [id number] 01:32:00* Test Item Value Reference Range Interpretation Comments SED RATE WESTERGREN (test code = SEDW) 8 mm/hr 0-20 N - CTA [id number] 22:30:00 Name: ANGELA ESPINOSA [facility] : 1975 Age/S: 43 / F [address] [facility] Unit #: [id number] Loc: [place] [address] Phys: Alexander Oviedo MD Acct: [id number] Dis Date: Status: ADM IN PHONE #: [phone] Exam Date: 06/16/2019 2200 FAX #: [phone] Reason: PE EXAMS: CPT CODE: [id number] CTA CHEST 45127 EXAM: CTA of the chest with contrast; [...] acute abnormalities. 2. Fatty liver. Location code: [facility] ED at 2230 Reported and signed by: Ismael Mckeon M.D. CC: Keenan Yuen MD; Vicente Bui MD; Alexander Oviedo MD Technologist:Katei BOGGS([place]); NAREN Lewis CTDI: DLP: Trnscb Date/Time: 06/16/2019 (2229) t.MARCO ANTONIO.GRW Orig Print D/T: S: 06/16/2019 (2532) PAGE 1 Signed Report B-TYPE NATRIURETIC PEPTIDE 2019-06-16 21:53:00* Test Item Value Reference Range Interpretation Comments B-TYPE NATRIURETIC PEPTIDE (test code = BNP) 10.37 pgram/mL 0-100 N Has Patient received Natrecor? NOPROTHROMBIN [id number] 20:17:00* Test Item Value Reference Range Interpretation [...] Mechanical prosthetic heart valves (2.5-3.5) THROMBOPLASTIN TIME [id number] 20:17:00* Test Item Value Reference Range Interpretation Comments THROMBOPLASTIN TIME PARTIAL (test code = PTT) 34.8 seconds 25.0-36. 5 N [id number] 20:17:00* Test Item Value Reference Range Interpretation Comments FIBRINOGEN (test code = FIB) 296 mg/dL 200-400 N FIBRIN SPLIT [id number] 20:17:00* Test Item Value Reference Range Interpretation Comments FIBRIN SPLIT PRODUCT (test code = FSP) mcg/mL <5 [id number] 20:17:00* Test Item Value Reference Range Interpretation Comments D-DIMER (test code = DDIMER) 526.00 ng/mLFEU 0-500 HH Results called to CFQ1883 by V.LAB.LT 06/16/19 2016Critical results verified and [...] % 75-135 - XR KNEE 3 V [id number] 15:21:00 FAX: Keenan Yuen [phone] Shepherd: B St: ADM FAX: Marino Abbott [phone] Name: ANGELA ESPINOSA [facility] : 1975 Age/S: 43/F [address] [facility] Unit #: [id number] Loc: [address] [place] [address] Phys: Keenan Yuen MD Acct: [id number] Dis Date: Status: ADM IN PHONE #: [phone] Exam Date: 06/16/2019 1453 FAX #: [phone] Reason: POSSIBLE INJURY POST FALL EXAMS: CPT CODE: [id number] XR KNEE 3 V LT 424[address] EXAM: Left knee, 4 views; INFORMATION: Trauma; knee pain after fall; FINDINGS: Normal shape and structure of the imaged bones; no evidence of fracture or dislocation; no soft ti ssue abnormalities. IMPRESSION: No evidence of acute oss eous trauma or other pathological changes. No radiopaque foreign body. Location code: [facility] ED at 1521 Reported and signed by: Ismael Mckeon M.D. CC: Keenan Yuen MD; Vicente Bui MD Te chnologist: RT JAYESH(R) Trnscrd Date/ Time/By: 06/16/2019 (1521) : By: SilasGRW Orig Print D/T: S: 06/16/19 20 (3823) PAGE 1 Signed Report - [facility] W/O [id number] 12:47:00 FAX: Preethi Tavarez [phone] Shepherd: St: ADM FAX: Keenan Yuen [phone] FAX: Marino Abbott [phone] --------- Name: ANGELA ESPINOSA [facility] : 1975 Age/S: 43/F [address] it #: [id number] Loc: V.2090 [place] [address] Phys: Keenan Yuen MD Acct: [id number] Dis Date: Status: ADM IN ONE #: [phone] Exam Date: 06/16/2019 1210 FAX #: [phone] Reason: weakness, slurred speech EXAMS: CPT CODE: [id number] MR Nanci HD W/O CONT 98069 HISTORY: Left- sided paresthesia slurred speech. COMPARISON: None available. Location: [facility]. MRA tonto [place] of [place] without contrast: 3-D images. Basilar artery is widely patent. Superior cerebellar art eries are patent. EXPLOSION WELDER are widely patent bilaterally. Posterior communicati ng arteries are absent. Anterior communicating artery is patent. Bilateral petrous, cavernous and supraclinoid ICA remains patent. Jaswinder ateral HENNA are widely patent. Both MCA are widely patent. No aneurysm visi ble. IMPRESSION: Patent tonto [place] of [place] with the exception of posterior communicating arteries. No aneurysm is visibl e. at 1247 Reported and signed by: Shade Alcazar M.D. CC: Preethi Yin MD; Keenan Yuen MD; Vicente Waldrop MD Technologist: Opal Mccollum)(MR) Trnscrd Date/Time/By: 06/16 (8804) : By: SilasTH4 Orig Print D/T: S: 06/16/2019 (9608) PAGE 1 Signed Report - MRA NECK W WO [id number] 12:40:00 FAX: Preethi Tavarez [phone] Shepherd: B St: ADM FAX: Keenan Yuen [phone] FAX: Marino Abbott [phone] Name: ANGELA ESPINOSA [facility] : 1975 Age/S: 43/F [address] Unit #: [id number] [place] [address] Phys: Keenan Yuen MD Acct: [id number] Dis Date: Status: ADM IN ONE #: [phone] Exam Date: 06/16/2019 1211 FAX #: [phone] Reason: weakness, slurred speech EXAMS: CPT CODE: [id number] MR A NECK W WO CONT 51591 HISTORY: Weakn ess and slurred speech. COMPARISON: None available. MRA neck without contrast: 3-D images. Location: [facility]. Note: Motion limited study. Bilateral vertebral arteries [...] Keenan Yuen MD; Vicente Bui MD Technologist: eYimi Mccollum)(MR) Trnscrd Date/Time/By: 06/16/2019 (1240) : By: Silas TH4 Orig Print D/T: S: 06/16/2019 (1249) PAGE 1 Signed Report - MRI BRAIN W/O [id number] 12:28:00 FAX: Keagan Preethi Yin [phone] Shepherd: B St: ADM FAX: Keenan Yuen [phone] FAX: Babar Marino Bui [phone] Name: ANGELA ESPINOSA [facility] : 1975 Age/S: 43/F [address] [facility] Unit #: [id number] Loc: [place] [place] [address] Phys: Keenan Yuen MD Acct: [id number] Dis Date: Status: ADM IN [facility] #: [phone] Exam Date: 06/16/2019 1209 FAX #: [phone] Reason: Syncope and collapse, r/o CVA EXAMS: CPT CODE: [id number] MR I BRAIN W/O CONTRAST 49096 HISTORY: CVA. COMPARISON: Head CT from previous day. MRI brain wit hout contrast: Automated exposure control. Location: [facility]. No acute territorial vascular or acute lacunar [...] echnologist: Yeimi Templeton(R)(MR) Trnscrd Date /Time/By: 06/16/2019 (3169) : By: [email or web address] Orig Print D/T: S: 020 (0987) PAGE 1 Signed Report URINALYSIS [id number] 10:17:00* Test Item Value Reference Range Interpretation [...] Source? Clean Catch DRUGS OF ABUSE SCREEN [id number] 10:17:00* Test Item Value Reference Range Interpretation [...] <300 ng/mL Urine Source? Clean Catch URINALYSIS [id number] 10:14:00* Test Item Value Reference Range Interpretation [...] Source? Clean Catch DRUGS OF ABUSE SCREEN [id number] 10:14:00* Test Item Value Reference Range Interpretation [...] <300 ng/mL Urine Source? Clean Catch URINALYSIS [id number] 09:51:00* Test Item Value Reference Range Interpretation [...] Source? Clean Catch DRUGS OF ABUSE SCREEN [id number] 09:51:00* Test Item Value Reference Range Interpretation [...] [place]URN) <300 ng/mL Urine Source? Clean Catch [id number] 07:02:00* Test Item Value Reference Range Interpretation Comments GLUBED (test code = GLUBED) 80 mg/dL 65-110 N BASIC METABOLIC [id number] 06:14:00* Test Item Value Reference Range Interpretation [...] result is a direct measurement.========= BASIC METABOLIC [id number] 05:54:00* Test Item Value Reference Range Interpretation [...] code = LDL) mg/dL 100-129 CBC W/AUTO [id number] 05:32:00* Test Item Value Reference Range Interpretation [...] DIFF REQUIRED (test code = MDIFF) NO [id number] 00:50:00* Test Item Value Reference Range Interpretation Comments TROPONIN-I (test code = TROPI) <0.015 ng/mL 0-0.045 N [id number] 19:37:00* Test Item Value Reference Range Interpretation Comments TROPONIN-I (test code = TROPI) <0.015 ng/mL 0-0.045 N COMPREHENSIVE METABOLIC [id number] 17:02:00* Test Item Value Reference Range Interpretation [...] reference range due to change in reagent. [id number] 17:02:00* Test Item Value Reference Range Interpretation Comments MAGNESIUM (test code = MAG) 2.0 mg/dL 1.8-2.4 N THYROID STIMULATING [id number] 17:02:00* Test Item Value Reference Range Interpretation Comments THYROID STIMULATING HORMONE (test code = TSH) 0.777 uIU/mL 0.36-3.7 4 N TSH REFERENCE RANGES: EUTHYROID: 0.35 - 4.3 mIU/mL HYPO : > 5.5 mIU/mL HYPER : < 0.35 mIU/mL [id number] 16:53:00* Test Item Value Reference Range Interpretation Comments TROPONIN-I (test code = TROPI) <0.015 ng/mL 0-0.045 N [id number] 16:51:00* Test Item Value Reference Range Interpretation Comments GLYCOSYLATED HEMOGLOBIN (HA1C) (test code = GLYHGB) 5.4 % HbA1 SUGGESTED DIAGNOSIS: HbA1C (%) Diabetic >6.4Prediabetes 5.7 - 6.4Normal <5.7 ESTIMATED AVERAGE GLUCOSE (test code = EAG) 108 MG/DL COMPREHENSIVE METABOLIC [id number] 16:50:00* Test Item Value Reference Range Interpretation [...] TOTAL (test code = ALKP) IUnit/L 45-117 [id number] 16:50:00* Test Item Value Reference Range Interpretation Comments MAGNESIUM (test code = MAG) mg/dL 1.8-2.4 THYROID STIMULATING [id number] 16:50:00* Test Item Value Reference Range Interpretation Comments THYROID STIMULATING HORMONE (test code = TSH) uIU/mL 0.36-3.7 4 PROTHROMBIN [id number] 16:43:00* Test Item Value Reference Range Interpretation [...] (2.5-3.5) IS PATIENT ON ANTICOAGULANTS? NTHROMBOPLASTIN TIME [id number] 16:43:00* Test Item Value Reference Range Interpretation Comments THROMBOPLASTIN TIME PARTIAL (test code = PTT) 36.0 seconds 25.0-36. 5 N IS PATIENT ON ANTICOAGULANTS? NCBC W/AUTO [id number] 16:29:00* Test Item Value Reference Range Interpretation [...] = MDIFF) NO - XR CHEST 2 [id number] 14:38:00 FAX: Preethi Tavarez [phone] Shepherd: St: [facility] FAX: Marino Abbott [phone] FAX: Jocelin Cespedes NP Name: ANGELA ESPINOSA [facility] : 1975 Age/S: 43/F [address] [facility] Unit #: [id number] Loc: V.2090 [place] [address] Phys: Jocelin Cespedes NP Acct: [id number] Dis Date: Status: ADM IN ONE #: [phone] Exam Date: 06/15/2019 1422 FAX #: [phone] Reason: Syncope and collapse, r/o CVA; Chest pain EXAMS: CPT CODE: [id number] XR CHEST 2 V 35367 EXAM: Chest X- ray, 2 views; CLINICAL HISTORY: Chest pain; FINDINGS : Except for mild basilar atelectatic changes, the lungs are clear, no infiltrates, no edema; no effusions; no pneumothorax; normal ca rdiomediastinal silhouette. IMPRESSION: Mild basilar at electasis; otherwise, no evidence of active cardiopulmonary disease. Location code: [facility] ED at 1438 Reported and signed by: Ismael Mckeon M.D. CC: Preethi Yin MD; Vicente Bui MD; Jocelin Cespedes NP Techno logist: HATTIE KEY RT (R) Trnscrd Date/Time /By: 06/15/2019 (1438) : By: SilasGRW Orig Print D/T: S: 06/16/2019 ( 0823) PAGE 1 Signed Report DRUGS OF ABUSE [id number] 10:12:00* Test Item Value Reference Range Interpretation [...] ng/mL Specimen Comment: CLEAN CATCH. COMPREHENSIVE METABOLIC [id number] 10:12:00 * Test Item Value Reference Range [...] code = ALKP) 107 units/L 46-116 N [id number] 10:12:00* Test Item Value Reference Range Interpretation Comments TROPONIN-I (test code = TROPI) <0.017 ng/mL <0.056 N BENZODIAZEPINE [id number] 10:12:00* Test Item Value Reference Range Interpretation Comments OXAZEPAM (test code = OXAZ) TEMAZEPAM (test code = CLAUDE) FLURAZEPAM (test code = FLUR) UA RFLX MICR CULT IF [id number] 10:07:00* Test Item Value Reference Range Interpretation [...] Comment: 3Indication for culture: Suprapubic PainCOMPREHENSIVE METABOLIC [id number] 10:06:00* Test Item Value Reference Range Interpretation [...] code = ALKP) 107 units/L 46-116 N [id number] 10:06:00* Test Item Value Reference Range Interpretation Comments TROPONIN-I (test code = TROPI) <0.017 ng/mL <0.056 N PROTHROMBIN [id number] 10:06:00* Test Item Value Reference Range Interpretation Comments PROTHROMBIN TIME PATIENT (test code = PTP) 11.6 secs 10.4-12.4 N IS PATIENT ON ANTICOAGULANTS ? NINTERNATIONAL NORMAL [id number] 10:06:00* Test Item Value Reference Range Interpretation [...] IS PATIENT ON ANTICOAGULANTS ? NTHROMBOPLASTIN TIME [id number] 10:06:00* Test Item Value Reference Range Interpretation Comments THROMBOPLASTIN TIME PARTIAL (test code = PTT) 40.9 secs 22-38 H IS PATIENT ON ANTICOAGULANTS ? ND-DIMER [id number] 10:06:00* Test Item Value Reference Range Interpretation Comments D-DIMER QUANT (test code = DDIMER) <200 ng/mLDDU <255 Reference Range in : <570 ng/mlA positive test does not provide a definitive diagnosis ofDVT and indicates the need for follow up clinical studies. The predictive value of a negative test is 98% for rulingout DVT. IS PATIENT ON ANTICOAGULANTS ? [id number] 10:03:00* Test Item Value Reference Range Interpretation Comments ALCOHOL (test code = ALC) 0 mg/dL < 3 TH IS RESULT IS FOR MEDICAL PURPOSES ONLY The pharmacological response to blood alcohol levels mayvary from individual to individual. Signs of intoxicationcan be observed at levels of 50-100 mg/dL UA RFLX MICR CULT IF [id number] 09:57:00* Test Item Value Reference Range Interpretation [...] for culture: Suprapubic Pain- CT HEAD/BRAIN W/O [id number] 09:51:00 Patient Name: ANGELA ESPINOSA Unit No: [id number] EXAMS: CPT CODE: [id number] CT HEAD/BRAIN W/O CONT 90460 STUDY: - CT HEAD/BRAIN W/O CONT 06/15/2019 9:19 AM Ordering Physician: Leslie Forrest MD Patient Name: ANGELA ESPINOSA MR: [id number] : 1975; Age: 43 years y/o Female [...] acute fracture or suspicious osseous lesion. [facility] NAME: OPAL ESPINOSAJELICA Radiology Department PHYS: [email or web address] - Leslie Forrest MD [address] : 1975 AGE: 43 SEX: F [place], [place] [address] LOC: ALIVIA Lopes [facility] #: [phone] EXAM DATE: 06/15/2019 STATUS: REG ER FAX #: [phone] RAD NO: Page 1 Sig jack Report 1 Patient Name: ANGELA ESPINOSA Unit No: [id number] EXAMS: CPT CODE: [id number] CT HEAD/BRAIN W/O CONT 09617 <Continued> IMPRESSION: No acute intracranial abnormality. Communication of findings initiated at 9:40 AM 06/15/2019 by telephone. Findings discussed with Dr. Forrest at 9:48 AM 06/15/2019 by telephone. SL: [id number] at 0983 Reported and signed by: Sony Encarnacion MD CC: Vicente Quispe MD; Leslie Forrest MD Technologist: Anni Gaona, RT, CT CTDI: 49.75 DLP: 904.25 Trnscrbd D/ (0951) t.SDR.AP24/t.SDR.AP24 [facility] NAME: ISMAEL ESPINOSALICA Radiology Department PHYS: Leslie Levy MD [address] : 1975 AGE: 43 SEX: F [place] [address] LOC: F.ERS PHONE #: [phone] EXAM DATE: 06/15/2019 STATUS: REG ER FAX #: [phone] RAD NO: Page 2 Signed Report 1 Patient Name: ANGELA ESPINOSA Unit No: [id number] EXAMS: CPT CODE: [id number] CT HEAD/BRAIN W/O CONT 40877 <Continued> Orig Print D/T: S: 06/15/2019 (0954) [facility] PHYS: Leslie Levy MD [address] : 1975 AGE: 43 SEX: F [place] [address] LOC: F.ERS PHONE #: [phone] EXAM DATE: 06/15/2019 STATUS: REG ER FAX #: [phone] RAD NO: Page 3 Si gned Report 1 - XR CHEST 1 [id number] 09:43:00 Patient Name: ANGELA ESPINOSA Unit No: [id number] EXAMS: CPT CODE: [id number] XR CHEST 1 V 82223 CLINICAL HISTORY:CODE [...] SilasYOS Orig Print D/T: S: 06/15/2019 (1002) [facility] NAME: ANGELA ESPINOSA Radiology Department PHYS: Leslie Levy MD [address] : 1975 AGE: 43 SEX: F [place], [place] [address] LOC: F.ERS PHONE #: [phone] EXAM MARKUS E: 06/15/2019 STATUS: REG ER FAX #: [phone] RAD NO: Page 1 Signed Report CBC W/AUTO [id number] 09:37:00* Test Item Value Reference Range Interpretation [...] (test code = PLTMR) NORMAL YOANA L [id number] 15:44:00* Test Item Value Reference Range Interpretation Comments TROPONIN-I (test code = TROPI) <0.015 ng/mL 0-0.045 N [id number] 15:11:00* Test Item Value Reference Range Interpretation Comments GLUBED (test code = GLUBED) 73 mg/dL 74-106 L Performed by certified styrene dehydration reactor operator at [facility] [id number] 12:29:00* Test Item Value Reference Range Interpretation Comments GLUBED (test code = GLUBED) 72 mg/dL 74-106 L Performed by certified styrene dehydration reactor operator at [facility] - CTA [id number] 12:00:00 Name: ANGELA ESPINOSA [facility] : 1975 Age/S: 43 / F [address] [facility] Unit #: [id number] Loc: [place] [address] Phys: Donn Roe MD Acct: [id number] Dis Date: Status: REG ER PHONE #: [phone] Exam Date: 06/14/2019 1120 FAX #: [phone] Reason: L .sided weakness EXAMS: CPT CODE: [id number] CTA NECK 35617 HISTORY: Left-sided weakness. COMPARISON: None available. Note: [...] bilateral vertebral arteries with left dominance. CTA tonto apache of [place]: 3-D images. The basilar artery is widely patent. Both EXPLOSION WELDER are widely patent. Both superior cerebellar arteries are widely patent. Both posterior communicating arteries are absent. Anterior communicating artery is absent. Bilateral petrous, cavernous and the supraclinoid ICA are widely patent. Both HENNA are widely patent. Both MCA are widely patent. No aneurysm is visible. Dural sinuses are opacified. IMPRESSION: PAGE 1 Signed Report (CONTINUED) Name: ANGELA ESPINOSA [facility] : 1975 Age/S: 43 / F [address] [facility] Unit #: [id number] Loc: [place] [address] Phys: Donn Roe MD Acct: [id number] Dis Date: Status: REG ER PHONE #: [phone] Exam Date: 06/14/2019 1120 FAX #: [phone] Reason: L .sided weakness EXAMS: CPT CODE: [id number] CTA NECK 87394 < Continued> Patent tonto apache of Russell with the exception of anterior posterior communicating arteries which are absent. No aneurysm is visible. at 1200 Reported and signed by: Shade Alcazar M.D. CC: Vicente Bui MD; Donn Roe MD Technologist:Elayne Forrest,RT(R),CT CTDI: DLP: Trnlorettab Date/Time: 06/14/2019 (1200) t.MARCO ANTONIO.TH4 Orig Print D/T: S: 06/14/2019 (1203) PAGE 2 Signed Report - CTA [id number] 12:00:00 Name: ANGELA ESPINOSA [facility] : 1975 Age/S: 43 / F [address] Unit #: [id number] Loc: [place] [address] Phys: Donn Roe MD Acct: [id number] Dis Date: Status: REG ER PHONE #: [phone] Exam Date: 06/14/2019 1120 FAX #: [phone] Reason: L .sided weakness EXAMS: CPT CODE: [id number] CTA HEAD 399[address] HISTORY: Left-sided weakness. COMPARISON: None available. Note: [...] bilateral vertebral arteries with left dominance. CTA tonto apache of [place]: 3-D images. The basilar artery is widely patent. Both EXPLOSION WELDER are widely pat ent. Both superior cerebellar arteries are widely patent. Both posterior communicating arteries are absent. Anterior communicating artery is absent. Bilateral petrous, cavernous and the supraclinoid ICA are widely patent. Both HENNA are widely patent. Both MCA are widely patent. No aneurysm is visible. Dural sinuses are opacified. IMPRESSION: PAGE 1 Signed Report (CONTINUED) Name: ANGELA ESPINOSA [facility] : 1975 Age/S: 43 / F [address] Unit #: [id number] Loc: [place] [address] Phys: Donn Roe MD Acct: [id number] Dis Date: Status: REG ER PHONE #: [phone] Exam Date: 06/14/2019 1120 FAX #: [phone] Reason: L .sided weakness EXAMS: CPT CODE: [id number] CTA HEAD 39367 < Continued> Patent tonto apache of [place] with the exception of anterior posterior communicating arteries which are absent. No aneurysm is visible. at 1200 Reported and signed by: Shade Alcazar M.D. CC: Vicente Bui MD; Donn Roe MD Technologist:Elayne Forrest,RT(R),CT CTDI: DLP: Trnscb Date/Time: 06/14/2019 (1200) t.SDR.TH4 Orig Print D/T: S: 06/14/2019 (7822) PAGE 2 Signed Report BASIC METABOLIC [id number] 11:49:00* Test Item Value Reference Range Interpretation [...] CA) 9.0 mg/dL 8.5-10.1 N HCG SERUM [id number] 11:49:00* Test Item Value Reference Range Interpretation Comments HCG SERUM QUAL (test code = HCGQL) NEGATIVE NEGATIVE This HCGQL test is NOT applicable for MALE patients.Check with nurse about probable order error.If Tumor Marker Test needed, nurse should order test "HCGTU"(Test #[id number]) [id number] 11:49:00* Test Item Value Reference Range Interpretation Comments TROPONIN-I (test code = TROPI) <0.015 ng/mL 0-0.045 N BASIC METABOLIC [id number] 11:46:00* Test Item Value Reference Range Interpretation [...] CA) 9.0 mg/dL 8.5-10.1 N HCG SERUM [id number] 11:46:00* Test Item Value Reference Range Interpretation Comments HCG SERUM QUAL (test code = HCGQL) NEGATIVE [id number] 11:46:00* Test Item Value Reference Range Interpretation Comments TROPONIN-I (test code = TROPI) <0.015 ng/mL 0-0.045 N BASIC METABOLIC [id number] 11:44:00* Test Item Value Reference Range Interpretation [...] code = CA) mg/dL 8.5-10.1 HCG SERUM [id number] 11:44:00* Test Item Value Reference Range Interpretation Comments HCG SERUM QUAL (test code = HCGQL) NEGATIVE [id number] 11:44:00* Test Item Value Reference Range Interpretation Comments TROPONIN-I (test code = TROPI) ng/mL 0-0.045 - XR CHEST 1 [id number] 11:43:00 FAX: Marino Abbott [phone] Shepherd: St: PRE FAX: Donn Roe MD Name: ANGELA ESPINOSA [facility] : 1975 Age/S: 43/F [address] [facility] Unit #: [id number] Loc: [place] [address] Phys: Donn Roe MD Acct: [id number] Dis Date: Status: PRE ER PHONE #: [phone] Exam Date: 06/14/2019 1124 FAX #: [phone] Reason: CODE STROKE EXAMS: CPT CODE: [id number] XR CHEST 1 V 52074 HISTORY: Stroke. COMPARISON: April 11, 2019. Location: [facility]. No acute infiltrates, effusion or congestion is noted. Suboptimal inspiration with dependent changes. Mild cardiomegaly. IMPRESSION: No acute infiltrates, effusion or congestion. at 1143 Reported and signed by: Shade Alcazar M.D. CC: Vicente Bui MD; Donn Roe MD Technologist: Reba Gaitan RT(R) Trnscrd Date/Time/By: 06/14/2019 (9810) : By: SilasTH4 Orig Print D/T: S: 06/14/2019 (1808) PAGE 1 Signed Report PROTHROMBIN [id number] 11:29:00* Test Item Value Reference Range Interpretation [...] (2.5-3.5) IS PATIENT ON ANTICOAGULANTS? NTHROMBOPLASTIN TIME [id number] 11:29:00* Test Item Value Reference Range Interpretation Comments THROMBOPLASTIN TIME PARTIAL (test code = PTT) 36.1 seconds 25.0-36. 5 N IS PATIENT ON ANTICOAGULANTS? NCBC W/AUTO [id number] 11:24:00* Test Item Value Reference Range Interpretation [...] K/mm3 0.0-0.1 N - CT HEAD/BRAIN W/O [id number] 11:24:00 Name: ANGELA ESPINOSA [facility] : 1975 Age/S: 43 / F [address] Unit #: [id number] Loc: [place] [address] Phys: Donn Roe MD Acct: [id number] Dis Date: Status: PRE ER PHONE #: [phone] Exam Date: 06/14/2019 1120 FAX #: [phone] Reason: weakness, slurred speech EXAMS: CPT CODE: [id number] CT HEAD/BRAIN W/O CONT 01940 HISTORY: Weakness and slurred speech. COMPARISON: September 20, 2014. CT brain without contrast: Automated exposure control. Location: [facility]. No acute intracranial bleeds or extra-axial collections [...] Marino Bui MD; Donn Roe MD Technologist:Elayne ForrestRT(R),CT CTDI: DLP: Trnscb Date/Time: 06/14/2019 (1124) t.DIONR.TH4 Orig Print D/T: S: 06/14/2019 (1125) PAGE 1 Signed Report [id number] 10:18:00* Test Item Value Reference Range Interpretation Comments D-DIMER (test code = DDIMER) < 500 ng/mL 0-500 N THE DDIMER METHOD IS USED IN THE EXCLUSION OF DEEP VEINTHROMBOSIS AND/OR PULMONARY EMBOLISM AND THE CLINICAL CUT-OFF VALUE FOR EXCLUSION (500 NG/ML FEU) OF THESE CONDITIONSIS VALIDATED BY THE BUDGET RECORD CLERK OF THE METHOD. A NEGATIVE DDIMER RESULT WHEN COMBINED WITH A CLINICALASSESSMENT OF LOW PRETEST PROBABILITY HAS BEEN SHOWN TO HAVEA HIGH NEGATIVE PREDICTIVE VALUE OF DVT OR PE. D-DIMER VALUES >500 ng/mL ARE NOT DIAGNOSTIC FOR DVT,PEOR DIC WITHOUT OTHER CONFIRMATORY TESTS AND APPROPRIATECLINICAL EVALUATIONS. CBC W/AUTO [id number] 07:57:00* Test Item Value Reference Range Interpretation [...] 0.03 x10 3/uL 0.0-0.20 N TROPONIN I [id number] 07:55:00* Test Item Value Reference Range Interpretation Comments TROPONIN I RAPID (test code = TROPIRAP) 0.01 ng/mL 0.00-0.08 N - The use of serial sampling and testing protocol is a recommended practice- An elevated tropnin level alone is often not sufficient for diagnosis of myocardial infarction. CHEMISTRY 8 [id number] 07:50:00* Test Item Value Reference Range Interpretation [...] GFRP) 92 58-1 35 N CHEMISTRY 8 [id number] 07:50:00* Test Item Value Reference Range Interpretation [...] 58-1 35 N - XR CHEST 1 [id number] 07:39:00Patient Name: ANGELA ESPINOSA Unit No: [id number] EXAMS: CPT CODE: [id number] XR CHEST 1 V 97495 Chest Radiograph History: chest pain Comparison: February [...] Printed Date/Time: 06/12/2019 (0742) Name: ANGELA ESPINOSA [facility] Phys: Tom Cain [address] : 1975 Age: 43 Sex: F [place] [address] Loc: P.ERS Exam Date: 06/12/2019 Status: REG [...] CA) 8.6 mg/dL 8.5-10.1 N HEPATIC FUNCTION [id number] 10:07:00* Test Item Value Reference Range Interpretation [...] reference range due to change in reagent. [id number] 10:07:00* Test Item Value Reference Range Interpretation Comments LIPASE (test code = LIP) 89 U/L 73.0-393.0 N CBC W/O [id number] 09:48:00* Test Item Value Reference Range Interpretation [...] MPV) 9.0 fL 6.7-11.0 N - RETRO [id number] 09:48:00 Name: ANGELA ESPINOSA [facility] : 1975 Age/S: 43 / F [address] [facility] Unit #: [id number] Loc: [place] [address] Phys: Briseyda Bailey NP Acct: [id number] Dis Date: Status: REG ER PHONE #: [phone] Exam Date: 05/25/2019919 FAX #: [phone] Reason: LEFT CVA TENDERNESS EXAMS: CPT CODE: [id number] RETRO LTD 89272 EXAM: Ultrasound retroperitoneum, limited; INFORMATION: Left CVA [...] by: Ismael Mckeon M.D. CC: Briseyda Bailey NP; Vicente Bui MD Technologist: OUSMANE CRISTINA RT(R),RDMS Trnscb Date/Time: 05/25/2019 (48) Dayna Orig Print D/T: S: 05/25/2019 (3602) Probe: PAGE 1 Signed Report CBC W/O [id number] 09:45:00* Test Item Value Reference Range Interpretation [...] (test code = MPV) fL 6.7-11.0 URINALYSIS [id number] 09:20:00* Test Item Value Reference Range Interpretation [...] FEW #/LPF FEW Urine Source? Clean CatchURINALYSIS [id number] 09:19:00* Test Item Value Reference Range Interpretation [...] #/HPF NONE Urine Source? Clean CatchCBC W/AUTO [id number] 15:45:00* Test Item Value Reference Range Interpretation [...] = PLTMR) NORMAL YOANA L CHEMISTRY 7 [id number] 15:41:00* Test Item Value Reference Range Interpretation [...] 8.8 mg/dL 8.4-10.2 N DRUGS OF ABUSE [id number] 09:21:00* Test Item Value Reference Range Interpretation [...] DETECTION CUT OFF: 25 ng/mL COMPREHENSIVE METABOLIC [id number] 09:21:00* Test Item Value Reference Range Interpretation [...] code = ALKP) 107 units/L 46-116 N [id number] 09:21:00* Test Item Value Reference Range Interpretation Comments LIPASE (test code = LIP) 97 units/L 73-393 N BENZODIAZEPINE [id number] 09:21:00* Test Item Value Reference Range Interpretation Comments OXAZEPAM (test code = OXAZ) TEMAZEPAM (test code = CLAUDE) FLURAZEPAM (test code = FLUR) COMPREHENSIVE METABOLIC [id number] 09:17:00* Test Item Value Reference Range Interpretation [...] code = ALKP) 107 units/L 46-116 N [id number] 09:17:00* Test Item Value Reference Range Interpretation Comments LIPASE (test code = LIP) 97 units/L 73-393 N UA RFLX MICR CULT IF [id number] 09:08:00* Test Item Value Reference Range Interpretation [...] OCCASIONAL Indication for culture: Suprapubic PainUR HCG [id number] 09:08:00* Test Item Value Reference Range Interpretation Comments UR HCG QUAL (test code = HCGQLU) NEGATIVE 1. Very dilute urine specimens, as indicated by a lowspecific gravity, may not contain account retention representative levels ofhCG. 2. False negative results may occur when the levels of hCGare below the sensitivity level of the test. If is still suspected, a first morningurine specimen should be collected 48 hours later andtested. Indication for culture: Suprapubic PainCBC W/AUTO [id number] 09:02:00* Test Item Value Reference Range Interpretation [...] YOANA L UA RFLX MICR CULT IF [id number] 09:02:00* Test Item Value Reference Range Interpretation [...] RARE-FEW Indication for culture: Suprapubic PainUR HCG [id number] 09:02:00* Test Item Value Reference Range Interpretation Comments UR HCG QUAL (test code = HCGQLU) NEGATIVE 1. Very dilute urine specimens, as indicated by a lowspecific gravity, may not contain account retention representative levels ofhCG. 2. False negative results may occur when the levels of hCGare below the sensitivity level of the test. If is still suspected, a first morningurine specimen should be collected 48 hours later andtested. Indication for culture: Suprapubic PainUrine [id number] 08:00:00* Test Item Value Reference Range Interpretation Comments Urine WBC (test code = 5821-4) 0-5 0-5 [facility] [id number] 08:00:00* Test Item Value Reference Range Interpretation Comments Urine RBC (test code = 12802-2) 0-5 0-5 [facility] [id number] 08:00:00* Test Item Value Reference Range Interpretation Comments Urine Bacteria (test code = 25002-9) FEW NONE [facility] Epithelial [id number] 08:00:00 * Test Item Value Reference Range Interpretation Comments Urine Epithelial Cells (test code = 69729-8) RARE NONE [facility] O[facility] [id number] 07:51:00* Test Item Value Reference Range Interpretation Comments Urine Opiates Screen (test code = 56091-4) NEGATIVE NEGATIVE ALL TESTS PERFORMED MANUALLY ON [employer] TOX/SEE TESTSaint [facility]illus Medical CenterUrine Barbiturates [id number] 07:51:00* Test Item Value Reference Range Interpretation Comments Urine Barbiturates Screen (test code = 750660450) NEGATIVE NEGA TIVE [facility] Phencyclidine [id number] 07:51:00* Test Item Value Reference Range Interpretation Comments Urine Phencyclidine Screen (test code = 54824-9) NEGATIVE NEGAT HENRY [facility] Amphetamines [id number] 07:51:00* Test Item Value Reference Range Interpretation Comments Urine Amphetamines Screen (test code = 81175-9) NEGATIVE NEGATI VE [facility] Methamphetamines [id number] 07:51:00* Test Item Value Reference Range Interpretation Comments Urine Methamphetamines Screen (test code = Urine Metha mphetamines Screen) NEGATIVE NEGATIVE [facility] Benzodiazepines [id number] 07:51:00* Test Item Value Reference Range Interpretation Comments Urine Benzodiazepines Screen (test code = 00690-8) POSITIVE NEG ATIVE H This test provides only a screen. Positive results should be repeated by a confi rmatory test.[facility] Cocaine Screen 2019-04-28 07:51:00* Test Item Value Reference Range Interpretation Comments Urine Cocaine Screen (test code = 3398-5) NEGATIVE NEGATIVE [facility] Cannabinoids [id number] 07:51:00* Test Item Value Reference Range Interpretation Comments Urine Cannabinoids Screen (test code = 82851-4) POSITIVE NEGATI VE H This test provides only a screen. Positive results should be repeated by a confi rmatory test.[facility] Methadone Screen 2019-04-28 07:51:00* Test Item Value Reference Range Interpretation Comments Urine Methadone Screen (test code = 97867-8) NEGATIVE NEGATIVE THESE RESULTS ARE FOR MEDICAL TREATMENT ONLYTHIS REPORT CONTAINS UNCONFIR MED SCREENING RESULTS*POSITIVE RESULTS WILL BE CONFIRMED BY REFERENCE LAB UPON R EQUEST CUT-OFFDRUG CLASS CONCENTRATION ng/mLAmphetamines 1000Methamphetamines 1000Cocaine Metabolite 300Opiate 300Phencyc lidine 25Cannabinoid 50Barbiturates 300Benzodiazepine 300Methadone 300[facility] [id number] 07:48:00* Test Item Value Reference Range Interpretation Comments Urine Color (test code = 5778-6) YELLOW YELLOW [facility] Lbwbpzq4185-34-22 07:48:00* Test Item Value Reference Range Interpretation Comments Urine Clarity (test code = 42870-2) CLEAR CLEAR [facility] Specific Lniywzl0379-18-64 07:48:00 * Test Item Value Reference Range Interpretation Comments Urine Specific [place] (test code = 5811-5) 1.020 1.010-1.02 5 [facility] [id number] 07:48:00* Test Item Value Reference Range Interpretation Comments Urine pH (test code = 27929-5) 6 5-7 [facility] Leukocyte Nhbtwdfs2403-04-55 07:48:00* Test Item Value Reference Range Interpretation Comments Urine Leukocyte Esterase (test code = 05960-7) NEGATIVE NEGATIV E [facility] Mfqldao3321-68-58 07:48:00* Test Item Value Reference Range Interpretation Comments Urine Nitrite (test code = 09927-3) NEGATIVE NEGATIVE [facility] Qmkbngd9850-64-76 07:48:00* Test Item Value Reference Range Interpretation Comments Urine Protein (test code = 27967-1) NEGATIVE NEGATIVE [facility] Glucose (UA)2019-04-28 07:48:00* Test Item Value Reference Range Interpretation Comments Urine Glucose (UA) (test code = 74663-9) NEGATIVE NEGATIVE [facility] Jspmtyw8727-41-68 07:48:00* Test Item Value Reference Range Interpretation Comments Urine Ketones (test code = 70760-1) NEGATIVE NEGATIVE [facility] Zstgotqbwadi9430-32-04 07:48:00* Test Item Value Reference Range Interpretation Comments Urine Urobilinogen (test code = 62168-1) 0.2 0.2-1 [facility] Erifjyyxl4445-80-14 07:48:00* Test Item Value Reference Range Interpretation Comments Urine Bilirubin (test code = 1977-8) NEGATIVE NEGATIVE [facility] Kunlv9893-52-85 07:48:00* Test Item Value Reference Range Interpretation Comments Urine Blood (test code = 59378-3) NEGATIVE NEGATIVE [facility] Lnviywp7025-27-48 08:20:00* Test Item Value Reference Range Interpretation Comments Urine Culture (test code = 630-4) No Result Data Provided [facility] [id number] 09:18:00* Test Item Value Reference Range Interpretation Comments Urine WBC (test code = 5821-4) 6-10 0-5 H [facility] RHE5704-12-91 09:18:00* Test Item Value Reference Range Interpretation Comments Urine RBC (test code = 08468-3) 0-5 0-5 [facility] Hqpejgsd4072-39-15 09:18:00* Test Item Value Reference Range Interpretation Comments Urine Bacteria (test code = 01963-7) MANY NONE H [facility] Epithelial Ifzwq6071-76-91 09:18:00 * Test Item Value Reference Range Interpretation Comments Urine Epithelial Cells (test code = 44914-8) FEW NONE [facility] Rlik7764-15-48 09:03:00* Test Item Value Reference Range Interpretation Comments Urine Test (test code = 2106-3) NEGATIVE NEGATIVE [facility] Awmb5936-71-20 09:03:00* Test Item Value Reference Range Interpretation Comments Urine Test (test code = 2106-3) NEGATIVE NEGATIVE [facility] Rqita1981-05-92 09:01:00* Test Item Value Reference Range Interpretation Comments Urine Color (test code = 5778-6) YELLOW YELLOW [facility] Tthohrk3786-17-10 09:01:00* Test Item Value Reference Range Interpretation Comments Urine Clarity (test code = 37382-6) SL CLOUDY CLEAR [facility] Specific Jgfpeoq3195-42-96 09:01:00 * Test Item Value Reference Range Interpretation Comments Urine Specific [place] (test code = 5811-5) <=1.005 1.010-1.02 5 [facility] gN4405-14-06 09:01:00* Test Item Value Reference Range Interpretation Comments Urine pH (test code = 69699-3) 7 5-7 [facility] Leukocyte Ywijppjq1385-63-39 09:01:00* Test Item Value Reference Range Interpretation Comments Urine Leukocyte Esterase (test code = 37843-5) TRACE NEGATIV E H [facility] Jvzrfpk0813-37-03 09:01:00* Test Item Value Reference Range Interpretation Comments Urine Nitrite (test code = 04474-9) NEGATIVE NEGATIVE [facility] Lnrsewi6767-17-12 09:01:00* Test Item Value Reference Range Interpretation Comments Urine Protein (test code = 42858-6) NEGATIVE NEGATIVE [facility] Glucose (UA)2019-04-22 09:01:00* Test Item Value Reference Range Interpretation Comments Urine Glucose (UA) (test code = 03971-8) NEGATIVE NEGATIVE [facility] Aepvzqn4559-87-84 09:01:00* Test Item Value Reference Range Interpretation Comments Urine Ketones (test code = 82504-4) NEGATIVE NEGATIVE [facility] Lqzqnhvgyifc3583-50-27 09:01:00* Test Item Value Reference Range Interpretation Comments Urine Urobilinogen (test code = 95262-6) 0.2 0.2-1 [facility] Mysdrgabp2856-96-57 09:01:00* Test Item Value Reference Range Interpretation Comments Urine Bilirubin (test code = 1977-8) NEGATIVE NEGATIVE [facility] Aamqa6732-33-04 09:01:00* Test Item Value Reference Range Interpretation Comments Urine Blood (test code = 45024-6) NEGATIVE NEGATIVE [facility] 2 AAFJ5501-99-79 08:56:00 [facility] [address] [place] [address] Patient Name: ANGELA ESPINOSA MR #: [id number] : 1975 Age/Sex: 43/F Req #: [id number] Adm Physician: Ordered by: COLLETTE MARTINEZ MD Report #: [id number] Location: ER Room/Bed: Procedure: 1122- 0020 DX/ABDOMEN [...] Impression: No acute radiographic abnormality. Signed by: eLta Krueger MD on 04/22/2019 8:58 AM Dictated By: LETA KRUEGER MD Electronically Sig jack By: LETA KRUEGER MD on 04/22/19857 Transcribed By: LULU on 04/22/19857 COPY TO: COLLETTE MARTINEZ MD URINALYSIS SFQVDYWN1995-37-18 08:25:00* Test Item Value Reference Range Interpretation [...] #/LPF FEW Urine Source? Clean CatchBASIC METABOLIC ZWKLC3447-64-61 09:50:00* Test Item Value Reference Range Interpretation [...] CA) 8.9 mg/dL 8.5-10.1 N HEPATIC FUNCTION XSRYQ6873-20-78 09:50:00* Test Item Value Reference Range Interpretation [...] reference range due to change in reagent. FYFFIU4996-08-60 09:50:00* Test Item Value Reference Range Interpretation Comments LIPASE (test code = LIP) 80 U/L 73.0-393.0 N HCG SERUM XGJT6742-37-92 09:50:00* Test Item Value Reference Range Interpretation Comments HCG SERUM QUAL (test code = HCGQL) NEGATIVE NEGATIVE This HCGQL test is NOT applicable for MALE patients.Check with nurse about probable order error.If Tumor Marker Test needed, nurse should order test "HCGTU"(Test #550.56741) BZXLJGFY-J7905-44-11 09:50:00* Test Item Value Reference Range Interpretation Comments TROPONIN-I (test code = TROPI) <0.015 ng/mL 0-0.045 N URINALYSIS HPEOJVYY4237-49-38 09:43:00* Test Item Value Reference Range Interpretation [...] #/LPF FEW Urine Source? Clean CatchBASIC METABOLIC SVAQP8306-75-45 09:42:00* Test Item Value Reference Range Interpretation [...] code = CA) mg/dL 8.5-10.1 HEPATIC FUNCTION VTCNV5071-79-65 09:42:00* Test Item Value Reference Range Interpretation [...] TOTAL (test code = ALKP) IUnit/L 45-117 WSARCP5276-45-71 09:42:00* Test Item Value Reference Range Interpretation Comments LIPASE (test code = LIP) U/L 73.0-393.0 HCG SERUM VBKX1757-89-32 09:42:00* Test Item Value Reference Range Interpretation Comments HCG SERUM QUAL (test code = HCGQL) NEGATIVE NEGATIVE This HCGQL test is NOT applicable for MALE patients.Check with nurse about probable order error.If Tumor Marker Test needed, nurse should order test "HCGTU"(Test #550.56504) SKWLJUGY-B6688-54-11 09:42:00* Test Item Value Reference Range Interpretation Comments TROPONIN-I (test code = TROPI) ng/mL 0-0.045 BASIC METABOLIC QQHQR0576-54-58 09:35:00* Test Item Value Reference Range Interpretation [...] code = CA) mg/dL 8.5-10.1 HEPATIC FUNCTION RANPG8124-97-56 09:35:00* Test Item Value Reference Range Interpretation [...] TOTAL (test code = ALKP) IUnit/L 45-117 IGVBTR3796-08-45 09:35:00* Test Item Value Reference Range Interpretation Comments LIPASE (test code = LIP) U/L 73.0-393.0 HCG SERUM [id number] 09:35:00* Test Item Value Reference Range Interpretation Comments HCG SERUM QUAL (test code = HCGQL) NEGATIVE NEGATIVE This HCGQL test is NOT applicable for MALE patients.Check with nurse about probable order error.If Tumor Marker Test needed, nurse should order test "HCGTU"(Test #550.54222) [id number]-L6883-06-11 09:35:00* Test Item Value Reference Range Interpretation Comments TROPONIN-I (test code = TROPI) ng/mL 0-0.045 CBC W/O FGMP9503-79-23 09:34:00* Test Item Value Reference Range Interpretation [...] MPV) 9.3 fL 6.7-11.0 N CBC W/O UDQF3377-31-34 09:33:00* Test Item Value Reference Range Interpretation [...] MPV) fL 6.7-11.0 - XR CHEST 1 [id number] 09:05:00 FAX: Briseyda Bailey NP Shepherd: St: REG Name: ANGELA DUPREE [facility] : [birth year] Age/S: 43/F [address] [facility] Unit #: [id number] Loc: [place] [address] Phys: Briseyda Bailey NP Acct: [id number] Dis Date: Status: REG ER PHONE #: [phone] Exam Date: 04/11/2019 0844 FAX #: [phone] Reason: Abdominal Pain EXAMS: CPT CODE: [id number] XR CHEST 1 V 35158 HISTORY: Abdominal pain. COMPARISON: None available. Location: [facility]. Single view abdomen: No bowel obstruction. Constipation. [...] Signed Report - XR ABDOMEN AP 1 [id number] 09:05:00 FAX: rBiseyda Bailey NP Shepherd: St: REG Name: ANGELA DUPREE [facility] : [birth year] Age/S: 43/F [address] [facility] Unit #: [id number] Loc: [place] [address] Phys: Briseyda Bailey NP Acct: [id number] Dis Date: Status: REG ER PHONE #: [phone] Exam Date: 04/11/2019 0844 FAX #: [phone] Reason: Abdominal Pain EXAMS: CPT CODE: [id number] XR ABDOMEN AP 1 V 56639 HISTORY: Abdominal pain. COMPARISON: None available. Location: [facility] ED. Single view abdomen: No bowel obstruction. Constipation. [...] CC: Briseyda Bailey NP Technologist: RT Amarjit([place]) Trnrolando Da te/Time/By: 04/11/2019 (904) : By: [email or web address] Orig Print D/T: S: 04/11 (0908) PAGE 1 Signed Report - CT ABD PELVIS W/O [id number] 21:51:00Patient Name: ANGELA ESPINOSA Unit No: [id number] EXAMS: CPT CODE: [id number] CT ABD PELVIS W/O CONT 23660 Location: T 18 CT of the abdomen [...] wall hernia repair without Name: ANGELA ESPINOSA [facility] Phys: Huyen Lopez MD [address] : 1975 Age: 43 Sex: F [place], [place] [address] Loc: P.ERS Exam Date: 04/02/2019 Status: REG ER PH: FAX: PAGE 1 Signed Report (CONTIN UED) Patient Name: ANGELA ESPINOSA Unit No: [id number] EXAMS: CPT CODE: [id number] CT ABD PELVIS W/O CONT 86196 <Continued> recurrent hernia are identified. These are [...] [email or web address] Printed Date/Time: 04/02/2019 (2153) Name: JESÚSANGELA [facility] Phys: Huyen Lopez MD [address] OB: 1975 Age: 43 Sex: [place] [address] Loc: P.ERS Exam Date: Status: REG ER [...] code = ALKP) 101 U/L 32-104 N [id number] 20:23:00* Test Item Value Reference Range Interpretation Comments LIPASE (test code = LIP) 33 U/L 0-190 N URINALYSIS [id number] 20:15:00* Test Item Value Reference Range Interpretation [...] = LEUU) SMALL NEGA TIVE A UA PJUTEJQSQTZ6912-13-36 20:15:00* Test Item Value Reference Range Interpretation Comments UA WBC (test code = WBCU) 3-5 #WBC/HPF 0-2 A UA RBC (test code = RBCU) 0-2 #RBC/HPF 0-2 UA BACTERIA (test code = BACU) 3+ /HPF NONE-TRACE A UA SQUAMOUS CELLS (test code = SQU) 1+ /LPF NONE-TRACE A UA URIC ACID CRYSTALS (test code = URIU) OCCASIONAL /HPF NONE SEEN UR HCG [id number] 20:15:00* Test Item Value Reference Range Interpretation Comments UR HCG QUAL (test code = HCGQLU) NEGATIVE NEGATIVE URINALYSIS [id number] 20:09:00* Test Item Value Reference Range Interpretation [...] = LEUU) SMALL NEGA TIVE A UA YJEATJSKILU8712-55-60 20:09:00* Test Item Value Reference Range Interpretation Comments UA WBC (test code = WBCU) #WBC/HPF 0-2 UA RBC (test code = RBCU) #RBC/HPF 0-2 UA BACTERIA (test code = BACU) /HPF NONE-TRACE UA SQUAMOUS CELLS (test code = SQU) /LPF NONE-TRACE UR HCG [id number] 20:09:00* Test Item Value Reference Range Interpretation Comments UR HCG QUAL (test code = HCGQLU) NEGATIVE NEGATIVE URINALYSIS VFLXQPDL1529-23-89 20:08:00* Test Item Value Reference Range Interpretation [...] = LEUU) SMALL NEGA TIVE A UA WCENUAPEYYO3308-88-40 20:08:00* Test Item Value Reference Range Interpretation Comments UA WBC (test code = WBCU) #WBC/HPF 0-2 UA RBC (test code = RBCU) #RBC/HPF 0-2 UA BACTERIA (test code = BACU) /HPF NONE-TRACE UA SQUAMOUS CELLS (test code = SQU) /LPF NONE-TRACE UR HCG [id number] 20:08:00* Test Item Value Reference Range Interpretation Comments UR HCG QUAL (test code = HCGQLU) NEGATIVE URINALYSIS LQFLWOKD3691-56-08 20:07:00* Test Item Value Reference Range Interpretation [...] = LEUU) SMALL NEGA TIVE A UA QJXVEUTKZQZ5077-22-66 20:07:00* Test Item Value Reference Range Interpretation Comments UA WBC (test code = WBCU) #WBC/HPF 0-2 UA RBC (test code = RBCU) #RBC/HPF 0-2 UA BACTERIA (test code = BACU) /HPF NONE-TRACE UA SQUAMOUS CELLS (test code = SQU) /LPF NONE-TRACE UR HCG [id number] 20:07:00* Test Item Value Reference Range Interpretation Comments UR HCG QUAL (test code = HCGQLU) NEGATIVE CBC W/AUTO [id number] 20:03:00* Test Item Value Reference Range Interpretation [...] 0.07 x10 3/uL 0.0-0.20 N CHEMISTRY 8 ZMWVGID7712-54-44 20:02:00* Test Item Value Reference Range Interpretation [...] GFRP) 79 58-1 35 N CHEMISTRY 8 GCEXVQG4867-71-44 20:02:00* Test Item Value Reference Range Interpretation [...] GFRP) 79 58-1 35 N LACTIC ACID [id number] 20:02:00* Test Item Value Reference Range Interpretation Comments LACTIC ACID POC (test code = LACTP) 1.23 mmol/L 0.9-1.70 N - US ABDOMEN [id number] 11:12:00 Patient Name: ANGELA ESPINOSA Unit No: [id number] EXAMS: CPT CODE: [id number] US ABDOMEN LTD 93702 LIMITED ANTERIOR ABDOMINAL WALL ULTRASOUND, 03/22/2019 COMPARISON: [...] Jr Robledo MD Technologist: Saira Chow RDMS, T Probe: Trnscrbd D/ (1112) t.AJ13 Orig Print D/T: S: 03/22/2019 (1116) [facility] NAME: ANGELA ESPINOSA Radiology Department PHYS: Jr Irwin MD [address] : 1975 AGE: 43 SEX: F [place], [place] [address] LOC: JessicaERS PHONE #: [phone] EXAM DATE: 03/22/2019 STATUS: DEP ER FAX #: [phone] RAD NO: Page 1 Signed Report Patient Name: ANGELA ESPINOSA Unit No: [id number] EXAMS: CPT CODE: [id number] US ABDOMEN LTD [address] <Continued> [facility] NAME: ANGELA ESPINOSA Radiology Department PHYS: Jr Irwin MD [address] : 1975 AGE: 43 SEX: F [place] [address] LOC: F.ERS PHONE #: [phone] EXAM DATE: 03/22/2019 STATUS: DEP ER FAX #: [phone] RAD NO: Page 2 Signed Report - US ABDOMEN [id number] 11:12:00 Patient Name: ANGELA ESPINOSA Unit No: [id number] EXAMS: CPT CODE: [id number] US ABDOMEN LTD 26337 LIMITED ANTERIOR ABDOMINAL WALL ULTRASOUND, 03/22/2019 COMPARISON: [...] Jr Robledo MD Technologist: Saira Chow RDMS, CECILT Probe: Trnscrbd D/ (1112) t.DIONR.AJ13 Orig Print D/T: S: 03/22/2019 (1116) [facility] NAME: ANGELA ESPINOSA Radiology Department PHYS: Jr Irwin MD [address] : 1975 AGE: 43 SEX: F [place] [address] ACCT NO: [id number] LOC: F.ERS PHONE #: [phone] EXAM DATE: STATUS: REG ER FAX #: [phone] RAD NO: Page 1 Signed Report Patient Name: ANGELA ESPINOSA Unit No: [id number] EXAMS: CPT CODE: [id number] US ABDOMEN LTD [address]83 <Continued> [facility] NAME: ANGELA ESPINOSA Radiology Department PHYS: Jr Irwin MD [address] : 1975 AGE: 43 SEX: F [place], [place] [address] ACCT NO: [id number] LOC: ALIVIA PHONE #: [phone] EXAM DATE: 03/02 STATUS: REG ER FAX #: [phone] RAD NO: P age 4 Signed Report COMPREHENSIVE METABOLIC [id number] 10:14:00* Test Item Value Reference Range Interpretation [...] code = ALKP) 93 units/L 46-116 N [id number] 10:14:00* Test Item Value Reference Range Interpretation Comments LIPASE (test code = LIP) 105 units/L 73-393 N CBC W/AUTO [id number] 10:12:00* Test Item Value Reference Range Interpretation [...] YOANA L UA RFLX MICR CULT IF [id number] 10:05:00* Test Item Value Reference Range Interpretation [...] SEEN Indication for culture: Flank PainUR HCG [id number] 10:05:00* Test Item Value Reference Range Interpretation Comments UR HCG QUAL (test code = HCGQLU) NEGATIVE 1. Very dilute urine specimens, as indicated by a lowspecific gravity, may not contain account retention representative levels ofhCG. 2. False negative results may occur when the levels of hCGare below the sensitivity level of the test. If is still suspected, a first morningurine specimen should be collected 48 hours later andtested. Indication for culture: Flank PainUA RFLX MICR CULT IF [id number] 10:04:00* Test Item Value Reference Range Interpretation [...] SEEN Indication for culture: Flank PainUR HCG [id number] 10:04:00* Test Item Value Reference Range Interpretation Comments UR HCG QUAL (test code = HCGQLU) Indication for culture: Flank PainUrine Yvexy0624-73-33 09:40:00* Test Item Value Reference Range Interpretation Comments Urine Color (test code = 5778-6) YELLOW YELLOW [facility] Dqvrlrt7751-62-22 09:40:00* Test Item Value Reference Range Interpretation Comments Urine Clarity (test code = 13295-4) CLOUDY CLEAR H [facility] Specific Olvahne6510-29-41 09:40:00 * Test Item Value Reference Range Interpretation Comments Urine Specific [place] (test code = 5811-5) 1.010 1.010-1.02 5 [facility] [id number] 09:40:00* Test Item Value Reference Range Interpretation Comments Urine pH (test code = 58884-8) 6 5-7 [facility] Leukocyte Oaripjpo2559-97-86 09:40:00* Test Item Value Reference Range Interpretation Comments Urine Leukocyte Esterase (test code = 53797-8) NEGATIVE NEGATIV E [facility] Kzcwdcc0652-59-96 09:40:00* Test Item Value Reference Range Interpretation Comments Urine Nitrite (test code = 26752-5) NEGATIVE NEGATIVE [facility] Ozbuncr0331-14-91 09:40:00* Test Item Value Reference Range Interpretation Comments Urine Protein (test code = 82028-2) NEGATIVE NEGATIVE [facility] Glucose (UA)2019-03-18 09:40:00* Test Item Value Reference Range Interpretation Comments Urine Glucose (UA) (test code = 27779-2) NEGATIVE NEGATIVE [facility] Tquqwah2615-17-24 09:40:00* Test Item Value Reference Range Interpretation Comments Urine Ketones (test code = 85116-5) NEGATIVE NEGATIVE [facility] Hhqcvualpsdo2659-18-28 09:40:00* Test Item Value Reference Range Interpretation Comments Urine Urobilinogen (test code = 99308-9) 0.2 0.2-1 [facility] Orkjdazxd1750-81-34 09:40:00* Test Item Value Reference Range Interpretation Comments Urine Bilirubin (test code = 1977-8) NEGATIVE NEGATIVE [facility] Wdyfl5654-74-14 09:40:00* Test Item Value Reference Range Interpretation Comments Urine Blood (test code = 62234-9) NEGATIVE NEGATIVE [facility] [id number] 09:40:00* Test Item Value Reference Range Interpretation Comments Urine WBC (test code = 5821-4) 6-10 0-5 H [facility] [id number] 09:40:00* Test Item Value Reference Range Interpretation Comments Urine RBC (test code = 97172-9) 0-5 0-5 [facility] Gjuoepgy8175-69-75 09:40:00* Test Item Value Reference Range Interpretation Comments Urine Bacteria (test code = 28348-9) MANY NONE H [facility] Epithelial Sngml2443-67-99 09:40:00 * Test Item Value Reference Range Interpretation Comments Urine Epithelial Cells (test code = 72764-7) MODERATE NONE [facility] CenterCOMPREHENSIVE METABOLIC AAZNH6380-87-52 09:02:00* Test Item Value Reference Range Interpretation [...] code = ALKP) 96 Unit/L 45-117 N UWEKJW5043-36-89 09:02:00* Test Item Value Reference Range Interpretation Comments LIPASE (test code = LIP) 70 Unit/L 114-286 L CBC W/AUTO UKPI7152-50-98 08:50:00* Test Item Value Reference Range Interpretation [...] NO DIFF/SCN CRITERIA - CT ABD PELVIS W/ATNU7517-25-46 13:00:00 Name: JESÚSREJIA [facility] : 1975 Age/S: 43 / F [address] [place] Unit #: [id number] Loc: [place] [address] Phys: Luis Hummel MD Acct: [id number] Dis Date: Status: [facility] ER PHONE #: [phone] Exam Date: 03/11/2019 2968 FAX #: Reason: luq abdominal pain EXAMS: CPT: [id number] CT ABD PELVIS W/CONT 79326 LOCATION: T18 EXAM: CT ABDOMEN AND PELVIS [...] 1300) t.SDR.JP19 Orig Print D/T: S: 03/11/2019 (8780) PAGE 1 Signed Report - CT ABD PELVIS W/MOZK3447-23-36 13:00:00 Name: JESÚSANGELA [facility] : 1975 Age/S: 43 / F [address] [place] Unit #: [id number] Loc: [place] [address] Phys: Luis Hummel MD Acct: [id number] Dis Date: Status: REG ER PHONE #: [phone] Exam Date: 03/11/2019 2947 FAX #: Reason: luq abdominal pain EXAMS: CPT: [id number] CT ABD PELVIS W/CONT 47997 LOCATION: T18 EXAM: CT ABDOMEN AND PELVIS [...] Ordonez M.D. CC: Luis Hummel MD Technologist:Christoph Mason RT(R)(CT) CTDI: DLP: Trnscb Date/Time: 03/11/2019 ( 1300) t.SDR.JP19 Orig Print D/T: S: 03/11/2019 (0710) PAGE 1 Signed Report BASIC METABOLIC [id number] 12:03:00* Test Item Value Reference Range Interpretation [...] CA) 8.3 MG/DL 8.5-10.1 L HEPATIC FUNCTION [id number] 12:03:00* Test Item Value Reference Range Interpretation [...] code = ALKP) 91 Unit/L 45-117 N CBKHNI1045-77-85 12:03:00* Test Item Value Reference Range Interpretation Comments LIPASE (test code = LIP) 67 Unit/L 114-286 L UA RFLX MICR CULT IF LHSVJXDDV4705-41-98 11:49:00* Test Item Value Reference Range Interpretation [...] URINE: CLEAN CATCHIndication for culture: Dysuria/FrequencyCBC W/AUTO [id number] 11:43:00* Test Item Value Reference Range Interpretation [...] DIFF/SCN CRITERIA UA RFLX MICR CULT IF [id number] 11:40:00* Test Item Value Reference Range Interpretation [...] and retested after 48 hours COMPREHENSIVE METABOLIC [id number] 13:09:00* Test Item Value Reference Range Interpretation [...] code = ALKP) 89 Unit/L 45-117 N [id number] 13:09:00* Test Item Value Reference Range Interpretation Comments LIPASE (test code = LIP) 72 Unit/L 114-286 L CBC W/AUTO [id number] 13:05:00* Test Item Value Reference Range Interpretation [...] Comments D-Dimer Quantitative (PE/DVT) (test code = 59671-4) < 100 0- 400 As with all in vitro diagnostic tests, the test results should be interpreted by the physician in conjunction with clinical findings and other test results.Test results are reported in NEW D-dimer units(ug/mLFEU).[facility] (PE/DVT)2019-03-01 09:41:00* Test Item Value Reference Range Interpretation Comments D-Dimer Quantitative (PE/DVT) (test code = 99318-2) < 100 0- 400 As with all in vitro diagnostic tests, the test results should be interpreted by the physician in conjunction with clinical findings and other test results.Test results are reported in NEW D-dimer units(ug/mLFEU).[facility] Quantitative (PE/DVT)2019-03-01 09:41:00* Test Item Value Reference Range Interpretation Comments D-Dimer Quantitative (PE/DVT) (test code = 06762-6) < 100 0- 400 As with all in vitro diagnostic tests, the test results should be interpreted by the physician in conjunction with clinical findings and other test results.Test results are reported in NEW D-dimer units(ug/mLFEU).[facility] (PE/DVT)2019-03-01 09:41:00* Test Item Value Reference Range Interpretation Comments D-Dimer Quantitative (PE/DVT) (test code = 86426-1) < 100 0- 400 As with all in vitro diagnostic tests, the test results should be interpreted by the physician in conjunction with clinical findings and other test results.Test results are reported in NEW D-dimer units(ug/mLFEU).[facility] CenterCreatine Kinase [id number] 09:38:00* Test Item Value Reference Range Interpretation Comments Creatine Kinase MB (test code = 30249-3) 0.40 0-5.0 [place] 56161019-10-01 09:38:00* Test Item Value Reference Range Interpretation Comments Troponin I (test code = [id number]) 0.002 0-0.300 [facility]Creat[facility] Kinase IU7983-19-64 09:38:00* Test Item Value Reference Range Interpretation Comments Creatine Kinase MB (test code = 86307-5) 0.40 0-5.0 [place] 56161019-10-01 09:38:00* Test Item Value Reference Range Interpretation Comments Troponin I (test code = MOR7657) 0.002 0-0.300 [facility] CenterCreatine Kinase DJ1558-24-50 09:38:00* Test Item Value Reference Range Interpretation Comments Creatine Kinase MB (test code = 49844-1) 0.40 0-5.0 [facility] CenterTroponin T0394-66-99 09:38:00* Test Item Value Reference Range Interpretation Comments Troponin I (test code = UNX9356) 0.002 0-0.300 [facility] CenterCreatine Kinase GL2574-01-49 09:38:00* Test Item Value Reference Range Interpretation Comments Creatine Kinase MB (test code = 29003-7) 0.40 0-5.0 [facility] CenterTroponin F2691-83-62 09:38:00* Test Item Value Reference Range Interpretation Comments Troponin I (test code = CFC3442) 0.002 0-0.300 [facility] Itjlb3308-67-07 09:32:00* Test Item Value Reference Range Interpretation Comments Sodium Level (test code = 2951-2) 141 136-145 [facility] CenterPotassium Ltzxm9054-88-60 09:32:00* Test Item Value Reference Range Interpretation Comments Potassium Level (test code = 2823-3) 4.1 3.5-5.1 [facility] CenterChloride Uhpjo2811-09-13 09:32:00* Test Item Value Reference Range Interpretation Comments Chloride Level (test code = 2075-0) 107 98-107 [facility] CenterCarbon Dioxide Flaxj4268-21-95 09:32:00* Test Item Value Reference Range Interpretation Comments Carbon Dioxide Level (test code = 2028-9) 24 22-29 [facility] CenterAnion Dll4573-64-71 09:32:00* Test Item Value Reference Range Interpretation Comments Anion Gap (test code = 70975-1) 14.1 8-16 [facility] CenterBlood Urea Siyljlkj0045-58-02 09:32:00* Test Item Value Reference Range Interpretation Comments Blood Urea Nitrogen (test code = 3094-0) 12 7-26 [facility] CenterCreatinine2019-10-01 09:32:00* Test Item Value Reference Range Interpretation Comments Creatinine (test code = 2160-0) 0.85 0.57-1.11 [facility] CenterBUN/Creatinine Qncmh5678-52-49 09:32:00* Test Item Value Reference Range Interpretation Comments BUN/Creatinine Ratio (test code = 3097-3) 14 6-25 [facility] CenterEstimat Glomerular Filtration Rate 2019-03-01 09:32:00* Test Item Value Reference Range Interpretation Comments Estimat Glomerular Filtration Rate (test code = 515649803) > 60 >60 Ranges were taken from the National Kidney Disease Education Program and the [facility] Foundation literature.Reference ranges:60 or greater: Wzleby70-21 ( for 3 consecutive months): Chronic kidney disease 15 or less: Kidney failureSaint [facility]illus Medical CenterGlucose Aoaxx7913-55-02 09:32:00* Test Item Value Reference Range Interpretation Comments Glucose Level (test code = IRO6644) 100 74-118 [facility] CenterCalcium Tngem7373-07-19 09:32:00* Test Item Value Reference Range Interpretation Comments Calcium Level (test code = 39811-1) 9.3 8.4-10.2 [facility] CenterTotal Zhptqmnoj1363-62-83 09:32:00* Test Item Value Reference Range Interpretation Comments Total Bilirubin (test code = 1975-2) 0.5 0.2-1.2 [facility] CenterAspartate Amino Transf (AST/SGOT) 2019-03-01 09:32:00* Test Item Value Reference Range Interpretation Comments Aspartate Amino Transf (AST/SGOT) (test code = Aspartate Amino Transf (AST/SGOT)) 16 5-34 [facility] CenterAlanine Aminotransferase (ALT/SGPT) 2019-03-01 09:32:00* Test Item Value Reference Range Interpretation Comments Alanine Aminotransferase (ALT/SGPT) (test code = 1742-6) 24 0-55 [facility] CenterTotal Hpjayxg0579-53-59 09:32:00* Test Item Value Reference Range Interpretation Comments Total Protein (test code = 2885-2) 6.7 6.5-8.1 [facility] CenterAlbumin2019-10-01 09:32:00* Test Item Value Reference Range Interpretation Comments Albumin (test code = 1751-7) 3.5 3.5-5.0 [facility] CenterGlobulin2019-10-01 09:32:00* Test Item Value Reference Range Interpretation Comments Globulin (test code = 60716-4) 3.2 2.3-3.5 [facility] CenterAlbumin/Globulin Mubpz2786-35-14 09:32:00 * Test Item Value Reference Range Interpretation Comments Albumin/Globulin Ratio (test code = 1759-0) 1.1 0.8-2.0 [facility] CenterAlkaline Tkgzzmvajil9348-90-43 09:32:00* Test Item Value Reference Range Interpretation Comments Alkaline Phosphatase (test code = 6768-6) 83 40-150 [facility] CenterCreatine Ykcgsm3766-61-70 09:32:00* Test Item Value Reference Range Interpretation Comments Creatine Kinase (test code = 2157-6) 59 29-168 [facility] CenterLipase2019-10-01 09:32:00* Test Item Value Reference Range Interpretation Comments Lipase (test code = 3040-3) 15 8-78 [facility] Hospitalodium Poytn0406-37-83 09:32:00* Test Item Value Reference Range Interpretation Comments Sodium Level (test code = 2951-2) 141 136-145 [facility] CenterPotassium Jfjxu6183-70-56 09:32:00* Test Item Value Reference Range Interpretation Comments Potassium Level (test code = 2823-3) 4.1 3.5-5.1 [facility] CenterChloride Mbbna4419-09-49 09:32:00* Test Item Value Reference Range Interpretation Comments Chloride Level (test code = 2075-0) 107 98-107 [facility] CenterCarbon Dioxide Qrkyi0375-20-25 09:32:00* Test Item Value Reference Range Interpretation Comments Carbon Dioxide Level (test code = 2028-9) 24 22-29 [facility] CenterAnion Fqv7679-88-59 09:32:00* Test Item Value Reference Range Interpretation Comments Anion Gap (test code = 55355-2) 14.1 8-16 [facility] CenterBlood Urea Vtbugtrl6733-10-96 09:32:00* Test Item Value Reference Range Interpretation Comments Blood Urea Nitrogen (test code = 3094-0) 12 7-26 [facility] CenterCreatinine2019-10-01 09:32:00* Test Item Value Reference Range Interpretation Comments Creatinine (test code = 2160-0) 0.85 0.57-1.11 [facility] CenterBUN/Creatinine Fdzap1406-41-33 09:32:00* Test Item Value Reference Range Interpretation Comments BUN/Creatinine Ratio (test code = 3097-3) 14 6-25 [facility] CenterEstimat Glomerular Filtration Rate 2019-03-01 09:32:00* Test Item Value Reference Range Interpretation Comments Estimat Glomerular Filtration Rate (test code = 897157788) > 60 >60 Ranges were taken from the National Kidney Disease Education Program and the [facility] literature.Reference ranges:60 or greater: Qmgtrl56-99 ( for 3 consecutive months): Chronic kidney disease 15 or less: Kidney failureSaint [facility]illus Medical CenterGlucose Fedvw2436-22-32 09:32:00* Test Item Value Reference Range Interpretation Comments Glucose Level (test code = SRQ6150) 100 74-118 [facility] CenterCalcium Curap0601-73-20 09:32:00* Test Item Value Reference Range Interpretation Comments Calcium Level (test code = 12848-0) 9.3 8.4-10.2 [facility] CenterTotal Pbfbphfxw7052-02-59 09:32:00* Test Item Value Reference Range Interpretation Comments Total Bilirubin (test code = 1975-2) 0.5 0.2-1.2 [facility] CenterAspartate Amino Transf (AST/SGOT) 2019-03-01 09:32:00* Test Item Value Reference Range Interpretation Comments Aspartate Amino Transf (AST/SGOT) (test code = Aspartate Amino Transf (AST/SGOT)) 16 5-34 [facility] CenterAlanine Aminotransferase (ALT/SGPT) 2019-03-01 09:32:00* Test Item Value Reference Range Interpretation Comments Alanine Aminotransferase (ALT/SGPT) (test code = 1742-6) 24 0-55 [facility] CenterTotal Uwpmdpw7340-87-32 09:32:00* Test Item Value Reference Range Interpretation Comments Total Protein (test code = 2885-2) 6.7 6.5-8.1 [facility] CenterAlbumin2019-10-01 09:32:00* Test Item Value Reference Range Interpretation Comments Albumin (test code = 1751-7) 3.5 3.5-5.0 [facility] CenterGlobulin2019-10-01 09:32:00* Test Item Value Reference Range Interpretation Comments Globulin (test code = 98118-0) 3.2 2.3-3.5 [facility] CenterAlbumin/Globulin Zihfr7734-33-66 09:32:00 * Test Item Value Reference Range Interpretation Comments Albumin/Globulin Ratio (test code = 1759-0) 1.1 0.8-2.0 [facility] CenterAlkaline Hnjtyqodjdh4619-47-20 09:32:00* Test Item Value Reference Range Interpretation Comments Alkaline Phosphatase (test code = 6768-6) 83 40-150 [facility] CenterCreatine Mcdrxm6978-90-28 09:32:00* Test Item Value Reference Range Interpretation Comments Creatine Kinase (test code = 2157-6) 59 29-168 [facility] CenterLipase2019-10-01 09:32:00* Test Item Value Reference Range Interpretation Comments Lipase (test code = 3040-3) 15 8-78 [facility] Hospitalodium Kpzor1240-83-76 09:32:00* Test Item Value Reference Range Interpretation Comments Sodium Level (test code = 2951-2) 141 136-145 [facility] CenterPotassium Aphwr4303-12-71 09:32:00* Test Item Value Reference Range Interpretation Comments Potassium Level (test code = 2823-3) 4.1 3.5-5.1 [facility] CenterChloride Gqzcy0017-21-38 09:32:00* Test Item Value Reference Range Interpretation Comments Chloride Level (test code = 2075-0) 107 98-107 [facility] CenterCarbon Dioxide Dtwoe1093-96-89 09:32:00* Test Item Value Reference Range Interpretation Comments Carbon Dioxide Level (test code = 8-9) 24 22-29 [facility] CenterAnion Cdh7702-78-60 09:32:00* Test Item Value Reference Range Interpretation Comments Anion Gap (test code = 81613-8) 14.1 8-16 [facility] CenterBlood Urea Eslpigqp6514-57-16 09:32:00* Test Item Value Reference Range Interpretation Comments Blood Urea Nitrogen (test code = 3094-0) 12 7-26 [facility] CenterCreatinine2019-10-01 09:32:00* Test Item Value Reference Range Interpretation Comments Creatinine (test code = 2160-0) 0.85 0.57-1.11 [facility] CenterBUN/Creatinine Zjvbe9166-69-82 09:32:00* Test Item Value Reference Range Interpretation Comments BUN/Creatinine Ratio (test code = 3097-3) 14 6-25 [facility] CenterEstimat Glomerular Filtration Rate 2019-03-01 09:32:00* Test Item Value Reference Range Interpretation Comments Estimat Glomerular Filtration Rate (test code = 412409829) > 60 >60 Ranges were taken from the National Kidney Disease Education Program and the [facility] literature.Reference ranges:60 or greater: Ahqsyq22-78 ( for 3 consecutive months): Chronic kidney disease 15 or less: Kidney failureSaint [facility]illus Medical CenterGlucose Toawd1364-93-22 09:32:00* Test Item Value Reference Range Interpretation Comments Glucose Level (test code = JBQ5948) 100 74-118 [facility] CenterCalcium Enhws1123-34-27 09:32:00* Test Item Value Reference Range Interpretation Comments Calcium Level (test code = 17375-5) 9.3 8.4-10.2 [facility] CenterTotal Pptpktvbs7532-37-92 09:32:00* Test Item Value Reference Range Interpretation Comments Total Bilirubin (test code = 1975-2) 0.5 0.2-1.2 [facility] CenterAspartate Amino Transf (AST/SGOT) 2019-03-01 09:32:00* Test Item Value Reference Range Interpretation Comments Aspartate Amino Transf (AST/SGOT) (test code = Aspartate Amino Transf (AST/SGOT)) 16 5-34 [facility] CenterAlanine Aminotransferase (ALT/SGPT) 2019-03-01 09:32:00* Test Item Value Reference Range Interpretation Comments Alanine Aminotransferase (ALT/SGPT) (test code = 1742-6) 24 0-55 [facility] CenterTotal Hkqlasp2233-42-73 09:32:00* Test Item Value Reference Range Interpretation Comments Total Protein (test code = 2885-2) 6.7 6.5-8.1 [facility] CenterAlbumin2019-10-01 09:32:00* Test Item Value Reference Range Interpretation Comments Albumin (test code = 1751-7) 3.5 3.5-5.0 [facility] CenterGlobulin2019-10-01 09:32:00* Test Item Value Reference Range Interpretation Comments Globulin (test code = 87977-6) 3.2 2.3-3.5 [facility] CenterAlbumin/Globulin Vuuod4040-09-16 09:32:00 * Test Item Value Reference Range Interpretation Comments Albumin/Globulin Ratio (test code = 1759-0) 1.1 0.8-2.0 [facility] CenterAlkaline Siaywgewqvr8921-90-55 09:32:00* Test Item Value Reference Range Interpretation Comments Alkaline Phosphatase (test code = 6768-6) 83 40-150 [facility] CenterCreatine Ppibkt8538-76-77 09:32:00* Test Item Value Reference Range Interpretation Comments Creatine Kinase (test code = 2157-6) 59 29-168 [facility] CenterLipase2019-10-01 09:32:00* Test Item Value Reference Range Interpretation Comments Lipase (test code = 3040-3) 15 8-78 [facility] Hospitalodium Kychv9082-41-82 09:32:00* Test Item Value Reference Range Interpretation Comments Sodium Level (test code = 2951-2) 141 136-145 [facility] CenterPotassium Pnrjs1258-57-90 09:32:00* Test Item Value Reference Range Interpretation Comments Potassium Level (test code = 2823-3) 4.1 3.5-5.1 [facility] CenterChloride Zlxdt9232-46-28 09:32:00* Test Item Value Reference Range Interpretation Comments Chloride Level (test code = 2075-0) 107 98-107 [facility] CenterCarbon Dioxide Ndfhf2651-45-23 09:32:00* Test Item Value Reference Range Interpretation Comments Carbon Dioxide Level (test code = 2028-9) 24 22-29 [facility] CenterAnion Bqb4402-63-47 09:32:00* Test Item Value Reference Range Interpretation Comments Anion Gap (test code = 76927-2) 14.1 8-16 [facility] CenterBlood Urea Itgumjjb9936-11-93 09:32:00* Test Item Value Reference Range Interpretation Comments Blood Urea Nitrogen (test code = 3094-0) 12 7-26 [facility] CenterCreatinine2019-10-01 09:32:00* Test Item Value Reference Range Interpretation Comments Creatinine (test code = 2160-0) 0.85 0.57-1.11 [facility] CenterBUN/Creatinine Ztjed2735-56-40 09:32:00* Test Item Value Reference Range Interpretation Comments BUN/Creatinine Ratio (test code = 3097-3) 14 6-25 [facility] CenterEstimat Glomerular Filtration Rate 2019-03-01 09:32:00* Test Item Value Reference Range Interpretation Comments Estimat Glomerular Filtration Rate (test code = 128820934) > 60 >60 Ranges were taken from the National Kidney Disease Education Program and the [facility] literature.Reference ranges:60 or greater: Ymefyt07-45 ( for 3 consecutive months): Chronic kidney disease 15 or less: Kidney failureSaint [facility] Medical CenterGlucose Qohia9103-07-58 09:32:00* Test Item Value Reference Range Interpretation Comments Glucose Level (test code = XXH4694) 100 74-118 [facility] CenterCalcium Ipjpr5486-38-68 09:32:00* Test Item Value Reference Range Interpretation Comments Calcium Level (test code = 68139-7) 9.3 8.4-10.2 [facility] CenterTotal Rjgxmmjvo9084-06-89 09:32:00* Test Item Value Reference Range Interpretation Comments Total Bilirubin (test code = 1975-2) 0.5 0.2-1.2 [facility] CenterAspartate Amino Transf (AST/SGOT) 2019-03-01 09:32:00* Test Item Value Reference Range Interpretation Comments Aspartate Amino Transf (AST/SGOT) (test code = Aspartate Amino Transf (AST/SGOT)) 16 5-34 [facility] CenterAlanine Aminotransferase (ALT/SGPT) 2019-03-01 09:32:00* Test Item Value Reference Range Interpretation Comments Alanine Aminotransferase (ALT/SGPT) (test code = 1742-6) 24 0-55 [facility] CenterTotal Zoyvxdo8580-68-84 09:32:00* Test Item Value Reference Range Interpretation Comments Total Protein (test code = 2885-2) 6.7 6.5-8.1 [facility] CenterAlbumin2019-10-01 09:32:00* Test Item Value Reference Range Interpretation Comments Albumin (test code = 1751-7) 3.5 3.5-5.0 [facility] CenterGlobulin2019-10-01 09:32:00* Test Item Value Reference Range Interpretation Comments Globulin (test code = 74372-6) 3.2 2.3-3.5 [facility] CenterAlbumin/Globulin Avsxb0424-87-37 09:32:00 * Test Item Value Reference Range Interpretation Comments Albumin/Globulin Ratio (test code = 1759-0) 1.1 0.8-2.0 [facility] CenterAlkaline Xwjjhydiisg5443-70-27 09:32:00* Test Item Value Reference Range Interpretation Comments Alkaline Phosphatase (test code = 6768-6) 83 40-150 [facility] CenterCreatine Umxdhs8807-31-73 09:32:00* Test Item Value Reference Range Interpretation Comments Creatine Kinase (test code = 2157-6) 59 29-168 [facility] CenterLipase2019-10-01 09:32:00* Test Item Value Reference Range Interpretation Comments Lipase (test code = 3040-3) 15 8-78 [facility] CenterWhite Blood Pmbak1495-53-87 09:11:00* Test Item Value Reference Range Interpretation Comments White Blood Count (test code = 6690-2) 7.43 4.8-10.8 [facility] CenterRed Blood Wszje1297-86-44 09:11:00* Test Item Value Reference Range Interpretation Comments Red Blood Count (test code = 789-8) 4.27 3.6-5.1 [facility] CenterHemoglobin2019-10-01 09:11:00* Test Item Value Reference Range Interpretation Comments Hemoglobin (test code = 33111-9) 12.6 12.0-16.0 [facility] CenterHematocrit2019-10-01 09:11:00* Test Item Value Reference Range Interpretation Comments Hematocrit (test code = 4544-3) 37.2 34.2-44.1 [facility] CenterMean Corpuscular Qeqaye4387-80-68 09:11:00* Test Item Value Reference Range Interpretation Comments Mean Corpuscular Volume (test code = 787-2) 87.1 81-99 [facility] CenterMean Corpuscular Arhmnoopwh8877-01-90 09:11:00* Test Item Value Reference Range Interpretation Comments Mean Corpuscular Hemoglobin (test code = 785-6) 29.5 28-32 [facility] CenterMean Corpuscular Hemoglobin Concent 2019-03-01 09:11:00* Test Item Value Reference Range Interpretation Comments Mean Corpuscular Hemoglobin Concent (test code = 786-4) 33.9 31-35 [facility] CenterRed Cell Distribution Dwvuh7199-51-21 09:11:00* Test Item Value Reference Range Interpretation Comments Red Cell Distribution Width (test code = 80974-7) 13.8 11.7 -14.4 [facility] CenterPlatelet Nhxgu0104-75-11 09:11:00* Test Item Value Reference Range Interpretation Comments Platelet Count (test code = 777-3) 302 140-360 [facility] CenterNeutrophils (%) (Auto)2019-03-01 09:11:00 * Test Item Value Reference Range Interpretation Comments Neutrophils (%) (Auto) (test code = 40031-9) 72.5 38.7-80.0 [facility] CenterLymphocytes (%) (Auto)2019-03-01 09:11:00 * Test Item Value Reference Range Interpretation Comments Lymphocytes (%) (Auto) (test code = 736-9) 20.6 18.0-39.1 [facility] CenterMonocytes (%) (Auto)2019-03-01 09:11:00* Test Item Value Reference Range Interpretation Comments Monocytes (%) (Auto) (test code = 5905-5) 5.8 4.4-11.3 [facility] CenterEosinophils (%) (Auto)2019-03-01 09:11:00 * Test Item Value Reference Range Interpretation Comments Eosinophils (%) (Auto) (test code = 713-8) 0.3 0.0-6.0 [facility] CenterBasophils (%) (Auto)2019-03-01 09:11:00* Test Item Value Reference Range Interpretation Comments Basophils (%) (Auto) (test code = 706-2) 0.1 0.0-1.0 [facility] CenterIM GRANULOCYTES %2019-03-01 09:11:00* Test Item Value Reference Range Interpretation Comments IM GRANULOCYTES % (test code = IM GRANULOCYTES %) 0.7 0.0- 1.0 [facility] CenterNeutrophils # (Auto)2019-03-01 09:11:00* Test Item Value Reference Range Interpretation Comments Neutrophils # (Auto) (test code = 751-8) 5.4 2.1-6.9 [facility] CenterLymphocytes # (Auto)2019-03-01 09:11:00* Test Item Value Reference Range Interpretation Comments Lymphocytes # (Auto) (test code = 00202-6) 1.5 1.0-3.2 [facility] CenterMonocytes # (Auto)2019-03-01 09:11:00* Test Item Value Reference Range Interpretation Comments Monocytes # (Auto) (test code = 742-7) 0.4 0.2-0.8 [facility] CenterEosinophils # (Auto)2019-03-01 09:11:00* Test Item Value Reference Range Interpretation Comments Eosinophils # (Auto) (test code = 711-2) 0.0 0.0-0.4 [facility] CenterBasophils # (Auto)2019-03-01 09:11:00* Test Item Value Reference Range Interpretation Comments Basophils # (Auto) (test code = 704-7) 0.0 0.0-0.1 [facility] CenterAbsolute Immature Granulocyte (auto 2019-03-01 09:11:00* Test Item Value Reference Range Interpretation Comments Absolute Immature Granulocyte (auto (alexa t code = Absolute Immature Granulocyte (auto) 0.05 0-0.1 [facility] CenterWhite Blood Gjdzr5367-16-36 09:11:00* Test Item Value Reference Range Interpretation Comments White Blood Count (test code = 6690-2) 7.43 4.8-10.8 [facility] CenterRed Blood Nwycg8841-72-02 09:11:00* Test Item Value Reference Range Interpretation Comments Red Blood Count (test code = 789-8) 4.27 3.6-5.1 [facility] CenterHemoglobin2019-10-01 09:11:00* Test Item Value Reference Range Interpretation Comments Hemoglobin (test code = 09173-4) 12.6 12.0-16.0 [facility] CenterHematocrit2019-10-01 09:11:00* Test Item Value Reference Range Interpretation Comments Hematocrit (test code = 4544-3) 37.2 34.2-44.1 [facility] CenterMean Corpuscular Iebouu4592-40-62 09:11:00* Test Item Value Reference Range Interpretation Comments Mean Corpuscular Volume (test code = 787-2) 87.1 81-99 [facility] CenterMean Corpuscular Bkhcpewqfj0887-54-01 09:11:00* Test Item Value Reference Range Interpretation Comments Mean Corpuscular Hemoglobin (test code = 785-6) 29.5 28-32 [facility] CenterMean Corpuscular Hemoglobin Concent 2019-03-01 09:11:00* Test Item Value Reference Range Interpretation Comments Mean Corpuscular Hemoglobin Concent (test code = 786-4) 33.9 31-35 [facility] CenterRed Cell Distribution Losef7814-64-71 09:11:00* Test Item Value Reference Range Interpretation Comments Red Cell Distribution Width (test code = 53813-5) 13.8 11.7 -14.4 [facility] CenterPlatelet Eahfu1576-39-78 09:11:00* Test Item Value Reference Range Interpretation Comments Platelet Count (test code = 777-3) 302 140-360 [facility] CenterNeutrophils (%) (Auto)2019-03-01 09:11:00 * Test Item Value Reference Range Interpretation Comments Neutrophils (%) (Auto) (test code = 87650-2) 72.5 38.7-80.0 [facility] CenterLymphocytes (%) (Auto)2019-03-01 09:11:00 * Test Item Value Reference Range Interpretation Comments Lymphocytes (%) (Auto) (test code = 736-9) 20.6 18.0-39.1 [facility] CenterMonocytes (%) (Auto)2019-03-01 09:11:00* Test Item Value Reference Range Interpretation Comments Monocytes (%) (Auto) (test code = 5905-5) 5.8 4.4-11.3 [facility] CenterEosinophils (%) (Auto)2019-03-01 09:11:00 * Test Item Value Reference Range Interpretation Comments Eosinophils (%) (Auto) (test code = 713-8) 0.3 0.0-6.0 [facility] CenterBasophils (%) (Auto)2019-03-01 09:11:00* Test Item Value Reference Range Interpretation Comments Basophils (%) (Auto) (test code = 706-2) 0.1 0.0-1.0 [facility] CenterIM GRANULOCYTES %2019-03-01 09:11:00* Test Item Value Reference Range Interpretation Comments IM GRANULOCYTES % (test code = IM GRANULOCYTES %) 0.7 0.0- 1.0 [facility] CenterNeutrophils # (Auto)2019-03-01 09:11:00* Test Item Value Reference Range Interpretation Comments Neutrophils # (Auto) (test code = 751-8) 5.4 2.1-6.9 [facility] CenterLymphocytes # (Auto)2019-03-01 09:11:00* Test Item Value Reference Range Interpretation Comments Lymphocytes # (Auto) (test code = 65130-6) 1.5 1.0-3.2 [facility] CenterMonocytes # (Auto)2019-03-01 09:11:00* Test Item Value Reference Range Interpretation Comments Monocytes # (Auto) (test code = 742-7) 0.4 0.2-0.8 [facility] (Auto)2019-03-01 09:11:00* Test Item Value Reference Range Interpretation Comments Eosinophils # (Auto) (test code = 711-2) 0.0 0.0-0.4 [facility] CenterBasophils # (Auto)2019-03-01 09:11:00* Test Item Value Reference Range Interpretation Comments Basophils # (Auto) (test code = 704-7) 0.0 0.0-0.1 [facility] CenterAbsolute Immature Granulocyte (auto 2019-03-01 09:11:00* Test Item Value Reference Range Interpretation Comments Absolute Immature Granulocyte (auto (alexa t code = Absolute Immature Granulocyte (auto) 0.05 0-0.1 [facility] CenterWhite Blood Hxzyj2506-81-72 09:11:00* Test Item Value Reference Range Interpretation Comments White Blood Count (test code = 6690-2) 7.43 4.8-10.8 [facility] CenterRed Blood Qmuom4109-61-77 09:11:00* Test Item Value Reference Range Interpretation Comments Red Blood Count (test code = 789-8) 4.27 3.6-5.1 [facility] CenterHemoglobin2019-10-01 09:11:00* Test Item Value Reference Range Interpretation Comments Hemoglobin (test code = 09953-3) 12.6 12.0-16.0 [facility] CenterHematocrit2019-10-01 09:11:00* Test Item Value Reference Range Interpretation Comments Hematocrit (test code = 4544-3) 37.2 34.2-44.1 [facility] CenterMean Corpuscular Whucvg4893-96-23 09:11:00* Test Item Value Reference Range Interpretation Comments Mean Corpuscular Volume (test code = 787-2) 87.1 81-99 [facility] CenterMean Corpuscular Bgmzbdjkgq0036-22-19 09:11:00* Test Item Value Reference Range Interpretation Comments Mean Corpuscular Hemoglobin (test code = 785-6) 29.5 28-32 [facility] CenterMean Corpuscular Hemoglobin Concent 2019-03-01 09:11:00* Test Item Value Reference Range Interpretation Comments Mean Corpuscular Hemoglobin Concent (test code = 786-4) 33.9 31-35 [facility] CenterRed Cell Distribution Gxywt1851-50-71 09:11:00* Test Item Value Reference Range Interpretation Comments Red Cell Distribution Width (test code = 49199-0) 13.8 11.7 -14.4 [facility] CenterPlatelet Ysunr6537-97-72 09:11:00* Test Item Value Reference Range Interpretation Comments Platelet Count (test code = 777-3) 302 140-360 [facility] CenterNeutrophils (%) (Auto)2019-03-01 09:11:00 * Test Item Value Reference Range Interpretation Comments Neutrophils (%) (Auto) (test code = 08280-0) 72.5 38.7-80.0 [facility] CenterLymphocytes (%) (Auto)2019-03-01 09:11:00 * Test Item Value Reference Range Interpretation Comments Lymphocytes (%) (Auto) (test code = 736-9) 20.6 18.0-39.1 [facility] CenterMonocytes (%) (Auto)2019-03-01 09:11:00* Test Item Value Reference Range Interpretation Comments Monocytes (%) (Auto) (test code = 5905-5) 5.8 4.4-11.3 [facility] CenterEosinophils (%) (Auto)2019-03-01 09:11:00 * Test Item Value Reference Range Interpretation Comments Eosinophils (%) (Auto) (test code = 713-8) 0.3 0.0-6.0 [facility] CenterBasophils (%) (Auto)2019-03-01 09:11:00* Test Item Value Reference Range Interpretation Comments Basophils (%) (Auto) (test code = 706-2) 0.1 0.0-1.0 [facility] CenterIM GRANULOCYTES %2019-03-01 09:11:00* Test Item Value Reference Range Interpretation Comments IM GRANULOCYTES % (test code = IM GRANULOCYTES %) 0.7 0.0- 1.0 [facility] CenterNeutrophils # (Auto)2019-03-01 09:11:00* Test Item Value Reference Range Interpretation Comments Neutrophils # (Auto) (test code = 751-8) 5.4 2.1-6.9 [facility] CenterLymphocytes # (Auto)2019-03-01 09:11:00* Test Item Value Reference Range Interpretation Comments Lymphocytes # (Auto) (test code = 19873-8) 1.5 1.0-3.2 [facility] CenterMonocytes # (Auto)2019-03-01 09:11:00* Test Item Value Reference Range Interpretation Comments Monocytes # (Auto) (test code = 742-7) 0.4 0.2-0.8 [facility] CenterEosinophils # (Auto)2019-03-01 09:11:00* Test Item Value Reference Range Interpretation Comments Eosinophils # (Auto) (test code = 711-2) 0.0 0.0-0.4 [facility] CenterBasophils # (Auto)2019-03-01 09:11:00* Test Item Value Reference Range Interpretation Comments Basophils # (Auto) (test code = 704-7) 0.0 0.0-0.1 [facility] CenterAbsolute Immature Granulocyte (auto 2019-03-01 09:11:00* Test Item Value Reference Range Interpretation Comments Absolute Immature Granulocyte (auto (alexa t code = Absolute Immature Granulocyte (auto) 0.05 0-0.1 [facility] CenterWhite Blood Rqirc5718-72-52 09:11:00* Test Item Value Reference Range Interpretation Comments White Blood Count (test code = 6690-2) 7.43 4.8-10.8 [facility] CenterRed Blood Tezrv2839-37-98 09:11:00* Test Item Value Reference Range Interpretation Comments Red Blood Count (test code = 789-8) 4.27 3.6-5.1 [facility] CenterHemoglobin2019-10-01 09:11:00* Test Item Value Reference Range Interpretation Comments Hemoglobin (test code = 17668-6) 12.6 12.0-16.0 [facility] CenterHematocrit2019-10-01 09:11:00* Test Item Value Reference Range Interpretation Comments Hematocrit (test code = 4544-3) 37.2 34.2-44.1 [facility] CenterMean Corpuscular Qexacn3555-46-12 09:11:00* Test Item Value Reference Range Interpretation Comments Mean Corpuscular Volume (test code = 787-2) 87.1 81-99 [facility] CenterMean Corpuscular Wiadgwlwqf2051-44-44 09:11:00* Test Item Value Reference Range Interpretation Comments Mean Corpuscular Hemoglobin (test code = 785-6) 29.5 28-32 [facility] CenterMean Corpuscular Hemoglobin Concent 2019-03-01 09:11:00* Test Item Value Reference Range Interpretation Comments Mean Corpuscular Hemoglobin Concent (test code = 786-4) 33.9 31-35 [facility] CenterRed Cell Distribution Yrael6924-32-98 09:11:00* Test Item Value Reference Range Interpretation Comments Red Cell Distribution Width (test code = 46853-7) 13.8 11.7 -14.4 [facility] CenterPlatelet Grzcz7222-47-96 09:11:00* Test Item Value Reference Range Interpretation Comments Platelet Count (test code = 777-3) 302 140-360 [facility] CenterNeutrophils (%) (Auto)2019-03-01 09:11:00 * Test Item Value Reference Range Interpretation Comments Neutrophils (%) (Auto) (test code = 49126-4) 72.5 38.7-80.0 [facility] CenterLymphocytes (%) (Auto)2019-03-01 09:11:00 * Test Item Value Reference Range Interpretation Comments Lymphocytes (%) (Auto) (test code = 736-9) 20.6 18.0-39.1 [facility] CenterMonocytes (%) (Auto)2019-03-01 09:11:00* Test Item Value Reference Range Interpretation Comments Monocytes (%) (Auto) (test code = 5905-5) 5.8 4.4-11.3 [facility] CenterEosinophils (%) (Auto)2019-03-01 09:11:00 * Test Item Value Reference Range Interpretation Comments Eosinophils (%) (Auto) (test code = 713-8) 0.3 0.0-6.0 [facility] CenterBasophils (%) (Auto)2019-03-01 09:11:00* Test Item Value Reference Range Interpretation Comments Basophils (%) (Auto) (test code = 706-2) 0.1 0.0-1.0 [facility] CenterIM GRANULOCYTES %2019-03-01 09:11:00* Test Item Value Reference Range Interpretation Comments IM GRANULOCYTES % (test code = IM GRANULOCYTES %) 0.7 0.0- 1.0 [facility] CenterNeutrophils # (Auto)2019-03-01 09:11:00* Test Item Value Reference Range Interpretation Comments Neutrophils # (Auto) (test code = 751-8) 5.4 2.1-6.9 [facility] CenterLymphocytes # (Auto)2019-03-01 09:11:00* Test Item Value Reference Range Interpretation Comments Lymphocytes # (Auto) (test code = 12819-9) 1.5 1.0-3.2 [facility] CenterMonocytes # (Auto)2019-03-01 09:11:00* Test Item Value Reference Range Interpretation Comments Monocytes # (Auto) (test code = 742-7) 0.4 0.2-0.8 [facility] CenterEosinophils # (Auto)2019-03-01 09:11:00* Test Item Value Reference Range Interpretation Comments Eosinophils # (Auto) (test code = 711-2) 0.0 0.0-0.4 [facility] CenterBasophils # (Auto)2019-03-01 09:11:00* Test Item Value Reference Range Interpretation Comments Basophils # (Auto) (test code = 704-7) 0.0 0.0-0.1 [facility] CenterAbsolute Immature Granulocyte (auto 2019-03-01 09:11:00* Test Item Value Reference Range Interpretation Comments Absolute Immature Granulocyte (auto (alexa t code = Absolute Immature Granulocyte (auto) 0.05 0-0.1 [facility] CenterCHEST SINGLE (NOT PORTABLE)2019-03-01 09:11:00 [facility] [address] [place] [address] Patient Name: ANGELA ESPINOSA MR #: [id number] : 1975 Age/Sex: 43/F Req #: [id number] Adm Physician: Ordered by: NATALIA AVILA DO Report #: [id number] Location: ER Room/Bed: Procedure: [id number] DX/CHEST SINGLE (NOT PORTABLE) Exam Date: 03/01/19 [...] COPY TO: NATALIA MINOR DO Urine Opiates Vmtcao3504-62-85 08:45:00* Test Item Value Reference Range Interpretation Comments Urine Opiates Screen (test code = 80216-0) N NEGATIVE ALL TESTS PERFORMED MANUALLY ON [employer] TOX/SEE TESTSaint [facility] Medical CenterUrine Barbiturates Gqjkaz5205-48-49 08:45:00* Test Item Value Reference Range Interpretation Comments Urine Barbiturates Screen (test code = 466216098) N NEGA TIVE [facility] CenterUrine Phencyclidine Diyhho4522-57-12 08:45:00* Test Item Value Reference Range Interpretation Comments Urine Phencyclidine Screen (test code = 13329-8) N NEGAT HENRY [facility] CenterUrine Amphetamines Mzybmc9557-07-01 08:45:00* Test Item Value Reference Range Interpretation Comments Urine Amphetamines Screen (test code = 30543-4) N NEGATI VE [facility] CenterUrine Methamphetamines Wryfuk5283-54-54 08:45:00* Test Item Value Reference Range Interpretation Comments Urine Methamphetamines Screen (test code = Urine Methampheta mines Screen) N NEGATIVE [facility] CenterUrine Benzodiazepines Pshhyf0088-59-42 08:45:00* Test Item Value Reference Range Interpretation Comments Urine Benzodiazepines Screen (test code = 48966-7) P NEG ATIVE [facility] CenterUrine Cocaine Fragrk4609-11-78 08:45:00* Test Item Value Reference Range Interpretation Comments Urine Cocaine Screen (test code = 3398-5) N NEGATIVE [facility] CenterUrine Cannabinoids Nkwhhr0625-31-93 08:45:00* Test Item Value Reference Range Interpretation Comments Urine Cannabinoids Screen (test code = 79206-5) P NEGATI VE THESE RESULTS ARE FOR MEDICAL TREATMENT ONLYTHIS REPORT CONTAINS UNCONFIR MED SCREENING RESULTS*POSITIVE RESULTS WILL BE CONFIRMED BY REFERENCE LAB UPON R EQUEST CUT-OFFDRUG CLASS CONCENTRATION ng/mLAmphetamines 1000Methamphetamines 1000Cocaine 300Opiate 300Phencyc lidine 25Cannabinoid 50Barbiturates 300Benzodiazepine 300Methadone 300[facility] CenterUrine Methadone Iidnow7905-36-08 08:45:00* Test Item Value Reference Range Interpretation Comments Urine Methadone Screen (test code = 93457-2) N NEGATIVE [facility] CenterUrine Sduo0104-07-22 08:45:00* Test Item Value Reference Range Interpretation Comments Urine Test (test code = 2106-3) NEGATIVE NEGATIVE [facility] CenterUrine Opiates Cdaxbr8902-79-22 08:45:00* Test Item Value Reference Range Interpretation Comments Urine Opiates Screen (test code = 85465-7) N NEGATIVE ALL TESTS PERFORMED MANUALLY ON [employer] TOX/SEE TESTSaint [facility] Medical CenterUrine Barbiturates Pgtqdr5606-18-43 08:45:00* Test Item Value Reference Range Interpretation Comments Urine Barbiturates Screen (test code = 351875471) N NEGA TIVE [facility] CenterUrine Phencyclidine Qbkagr6798-11-40 08:45:00* Test Item Value Reference Range Interpretation Comments Urine Phencyclidine Screen (test code = 27090-9) N NEGAT HENRY [facility] CenterUrine Amphetamines Iwwnwl7965-78-71 08:45:00* Test Item Value Reference Range Interpretation Comments Urine Amphetamines Screen (test code = 96483-4) N NEGATI VE [facility] CenterUrine Methamphetamines Pmfgfx6410-48-20 08:45:00* Test Item Value Reference Range Interpretation Comments Urine Methamphetamines Screen (test code = Urine Methampheta mines Screen) N NEGATIVE [facility] CenterUrine Benzodiazepines Bqvcyk6515-02-71 08:45:00* Test Item Value Reference Range Interpretation Comments Urine Benzodiazepines Screen (test code = 93573-2) P NEG ATIVE [facility] CenterUrine Cocaine Wewcdu1016-73-14 08:45:00* Test Item Value Reference Range Interpretation Comments Urine Cocaine Screen (test code = 3398-5) N NEGATIVE [facility] CenterUrine Cannabinoids Taddmj2848-01-66 08:45:00* Test Item Value Reference Range Interpretation Comments Urine Cannabinoids Screen (test code = 84599-3) P NEGATI VE THESE RESULTS ARE FOR MEDICAL TREATMENT ONLYTHIS REPORT CONTAINS UNCONFIR MED SCREENING RESULTS*POSITIVE RESULTS WILL BE CONFIRMED BY REFERENCE LAB UPON R EQUEST CUT-OFFDRUG CLASS CONCENTRATION ng/mLAmphetamines 1000Methamphetamines 1000Cocaine 300Opiate 300Phencyc lidine 25Cannabinoid 50Barbiturates 300Benzodiazepine 300Methadone 300[facility] CenterUrine Methadone Fhgmna8377-25-33 08:45:00* Test Item Value Reference Range Interpretation Comments Urine Methadone Screen (test code = 02721-3) N NEGATIVE [facility] CenterUrine Kkvm7866-96-90 08:45:00* Test Item Value Reference Range Interpretation Comments Urine Test (test code = 2106-3) NEGATIVE NEGATIVE [facility] CenterUrine Opiates Athjrz5909-13-51 08:45:00* Test Item Value Reference Range Interpretation Comments Urine Opiates Screen (test code = 16175-3) N NEGATIVE ALL TESTS PERFORMED MANUALLY ON [employer] TOX/SEE TESTSaint [facility] Medical CenterUrine Barbiturates Prklwh6669-75-62 08:45:00* Test Item Value Reference Range Interpretation Comments Urine Barbiturates Screen (test code = 692613226) N NEGA TIVE [facility] CenterUrine Phencyclidine Ybhkqi3388-43-62 08:45:00* Test Item Value Reference Range Interpretation Comments Urine Phencyclidine Screen (test code = 58240-9) N NEGAT HENRY [facility] CenterUrine Amphetamines Mxgssz4712-30-68 08:45:00* Test Item Value Reference Range Interpretation Comments Urine Amphetamines Screen (test code = 21859-0) N NEGATI VE [facility] CenterUrine Methamphetamines Kkjwnr0980-25-73 08:45:00* Test Item Value Reference Range Interpretation Comments Urine Methamphetamines Screen (test code = Urine Methampheta mines Screen) N NEGATIVE [facility] CenterUrine Benzodiazepines Ghcbad9443-79-84 08:45:00* Test Item Value Reference Range Interpretation Comments Urine Benzodiazepines Screen (test code = 60884-6) P NEG ATIVE [facility] CenterUrine Cocaine Xhwinr3645-33-13 08:45:00* Test Item Value Reference Range Interpretation Comments Urine Cocaine Screen (test code = 3398-5) N NEGATIVE [facility] CenterUrine Cannabinoids Dudxpu9055-44-59 08:45:00* Test Item Value Reference Range Interpretation Comments Urine Cannabinoids Screen (test code = 39142-5) P NEGATI VE THESE RESULTS ARE FOR MEDICAL TREATMENT ONLYTHIS REPORT CONTAINS UNCONFIR MED SCREENING RESULTS*POSITIVE RESULTS WILL BE CONFIRMED BY REFERENCE LAB UPON R EQUEST CUT-OFFDRUG CLASS CONCENTRATION ng/mLAmphetamines 1000Methamphetamines 1000Cocaine 300Opiate 300Phencyc lidine 25Cannabinoid 50Barbiturates 300Benzodiazepine 300Methadone 300[facility]Urine Methadone Slknvn7867-54-67 08:45:00* Test Item Value Reference Range Interpretation Comments Urine Methadone Screen (test code = 99599-4) N NEGATIVE [facility] CenterCT ABDOMEN/PELVIS G0453-32-18 15:40:00 [place] [address] Patient Name: ANGELA ESPINOSA MR #: [id number] : 1975 Age/Sex: 43/F Req #: [id number] Adm Physician: Ordered by: NATALIA AVILA DO Report #: [id number] Location: ER Room/Bed: Procedure: [id number] CT/CT ABDOMEN/PELVIS W Exam Date: 02/26/19 Exam [...] 02/26/191546 COPY TO: NATALIA AVILA DO Sodium Xijpw3123-86-44 14:00:00* Test Item Value Reference Range Interpretation Comments Sodium Level (test code = 2951-2) 140 136-145 [facility] CenterPotassium Fubfg9842-30-94 14:00:00* Test Item Value Reference Range Interpretation Comments Potassium Level (test code = 2823-3) 3.7 3.5-5.1 [facility] CenterChloride Mrtav6934-40-28 14:00:00* Test Item Value Reference Range Interpretation Comments Chloride Level (test code = 2075-0) 108 98-107 H [facility] CenterCarbon Dioxide Hllhd4316-85-62 14:00:00* Test Item Value Reference Range Interpretation Comments Carbon Dioxide Level (test code = 8-9) 23 22-29 [facility] CenterAnion Uic4054-03-92 14:00:00* Test Item Value Reference Range Interpretation Comments Anion Gap (test code = 45655-8) 12.7 8-16 [facility] CenterBlood Urea Gyczcltx2822-53-20 14:00:00* Test Item Value Reference Range Interpretation Comments Blood Urea Nitrogen (test code = 3094-0) 9 7-26 [facility] CenterCreatinine2019-09-28 14:00:00* Test Item Value Reference Range Interpretation Comments Creatinine (test code = 2160-0) 0.93 0.57-1.11 [facility] CenterBUN/Creatinine Huzbp1820-10-34 14:00:00* Test Item Value Reference Range Interpretation Comments BUN/Creatinine Ratio (test code = 3097-3) 10 6-25 [facility] CenterEstimat Glomerular Filtration Rate 2019-02-26 14:00:00* Test Item Value Reference Range Interpretation Comments Estimat Glomerular Filtration Rate (test code = 530156191) > 60 >60 Ranges were taken from the National Kidney Disease Education Program and the [facility] Kid[facility] Foundation literature.Reference ranges:60 or greater: Zzrhud03-35 ( for 3 consecutive months): Chronic kidney disease 15 or less: Kidney failureSaint [facility]illus Medical CenterGlucose Zixwy5753-80-10 14:00:00* Test Item Value Reference Range Interpretation Comments Glucose Level (test code = HCK4673) 84 74-118 [facility] CenterCalcium Txpwp0926-56-26 14:00:00* Test Item Value Reference Range Interpretation Comments Calcium Level (test code = 08824-1) 9.3 8.4-10.2 [facility] CenterTotal Ciwimvjei3663-93-64 14:00:00* Test Item Value Reference Range Interpretation Comments Total Bilirubin (test code = 1975-2) 0.3 0.2-1.2 [facility] CenterAspartate Amino Transf (AST/SGOT) 2019-02-26 14:00:00* Test Item Value Reference Range Interpretation Comments Aspartate Amino Transf (AST/SGOT) (test code = Aspartate Amino Transf (AST/SGOT)) 17 5-34 [facility] CenterAlanine Aminotransferase (ALT/SGPT) 2019-02-26 14:00:00* Test Item Value Reference Range Interpretation Comments Alanine Aminotransferase (ALT/SGPT) (test code = 1742-6) 23 0-55 [facility] CenterTotal Jdzskzd1138-20-50 14:00:00* Test Item Value Reference Range Interpretation Comments Total Protein (test code = 2885-2) 6.5 6.5-8.1 [facility] CenterAlbumin2019-09-28 14:00:00* Test Item Value Reference Range Interpretation Comments Albumin (test code = 1751-7) 3.5 3.5-5.0 [facility] CenterGlobulin2019-09-28 14:00:00* Test Item Value Reference Range Interpretation Comments Globulin (test code = 24431-9) 3.0 2.3-3.5 [facility] CenterAlbumin/Globulin Eqxha1348-00-10 14:00:00 * Test Item Value Reference Range Interpretation Comments Albumin/Globulin Ratio (test code = 1759-0) 1.2 0.8-2.0 [facility] CenterAlkaline Buhcqeutcit2170-50-84 14:00:00* Test Item Value Reference Range Interpretation Comments Alkaline Phosphatase (test code = 6768-6) 96 40-150 [facility] CenterUrine OKB4244-45-35 13:14:00* Test Item Value Reference Range Interpretation Comments Urine WBC (test code = 5821-4) 0-5 0-5 [facility] CenterUrine SEH5130-14-26 13:14:00* Test Item Value Reference Range Interpretation Comments Urine RBC (test code = 38403-8) 0-5 0-5 [facility] CenterUrine Pcifdqun8673-14-38 13:14:00* Test Item Value Reference Range Interpretation Comments Urine Bacteria (test code = 20608-5) FEW NONE [facility] CenterUrine Epithelial Bkroa2808-77-23 13:14:00 * Test Item Value Reference Range Interpretation Comments Urine Epithelial Cells (test code = 42671-0) FEW NONE [facility] CenterUrine Calcium Oxalate Iqgxtejp0815-29-28 13:14:00* Test Item Value Reference Range Interpretation Comments Urine Calcium Oxalate Crystals (test code = 5774-5) FEW FE W [facility] CenterUrine BIG0895-96-91 13:14:00* Test Item Value Reference Range Interpretation Comments Urine WBC (test code = 5821-4) 0-5 0-5 [facility] CenterUrine SPV3355-65-51 13:14:00* Test Item Value Reference Range Interpretation Comments Urine RBC (test code = 07529-4) 0-5 0-5 [facility] CenterUrine Axtdoedn3920-59-53 13:14:00* Test Item Value Reference Range Interpretation Comments Urine Bacteria (test code = 42331-0) FEW NONE [facility] CenterUrine Epithelial Jcajc2659-50-62 13:14:00 * Test Item Value Reference Range Interpretation Comments Urine Epithelial Cells (test code = 72395-0) FEW NONE [facility] CenterUrine Calcium Oxalate Htrtbhsu2728-37-83 13:14:00* Test Item Value Reference Range Interpretation Comments Urine Calcium Oxalate Crystals (test code = 5774-5) FEW W [facility] CenterUrine Calcium Oxalate Pyarfvqu9023-95-79 13:14:00* Test Item Value Reference Range Interpretation Comments Urine Calcium Oxalate Crystals (test code = 5774-5) FEW [facility] CenterU[facility] Calcium Oxalate Hvticzvt5965-51-50 13:14:00* Test Item Value Reference Range Interpretation Comments Urine Calcium Oxalate Crystals (test code = 5774-5) FEW [facility] CenterUrine Calcium Oxalate Aejhixtc5995-11-86 13:14:00* Test Item Value Reference Range Interpretation Comments Urine Calcium Oxalate Crystals (test code = 5774-5) FEW [facility] CenterWhite Blood Lyioi3569-75-75 13:12:00* Test Item Value Reference Range Interpretation Comments White Blood Count (test code = 6690-2) 7.29 4.8-10.8 [facility] CenterRed Blood Cfhqi3358-50-95 13:12:00* Test Item Value Reference Range Interpretation Comments Red Blood Count (test code = 789-8) 4.27 3.6-5.1 [facility] CenterHemoglobin2019-09-28 13:12:00* Test Item Value Reference Range Interpretation Comments Hemoglobin (test code = 14005-5) 12.5 12.0-16.0 [facility] CenterHematocrit2019-09-28 13:12:00* Test Item Value Reference Range Interpretation Comments Hematocrit (test code = 4544-3) 36.8 34.2-44.1 [facility] CenterMean Corpuscular Ympcgh6045-11-79 13:12:00* Test Item Value Reference Range Interpretation Comments Mean Corpuscular Volume (test code = 787-2) 86.2 81-99 [facility] CenterMean Corpuscular Ngfwgayewy3106-38-10 13:12:00* Test Item Value Reference Range Interpretation Comments Mean Corpuscular Hemoglobin (test code = 785-6) 29.3 28-32 [facility] CenterMean Corpuscular Hemoglobin Concent 2019-02-26 13:12:00* Test Item Value Reference Range Interpretation Comments Mean Corpuscular Hemoglobin Concent (test code = 786-4) 34.0 31-35 [facility] CenterRed Cell Distribution Ryttg9700-45-19 13:12:00* Test Item Value Reference Range Interpretation Comments Red Cell Distribution Width (test code = 28959-1) 13.5 11.7 -14.4 [facility] CenterPlatelet Wirzq0823-38-17 13:12:00* Test Item Value Reference Range Interpretation Comments Platelet Count (test code = 777-3) 308 140-360 [facility] CenterNeutrophils (%) (Auto)2019-02-26 13:12:00 * Test Item Value Reference Range Interpretation Comments Neutrophils (%) (Auto) (test code = 28984-1) 68.2 38.7-80.0 [facility] CenterLymphocytes (%) (Auto)2019-02-26 13:12:00 * Test Item Value Reference Range Interpretation Comments Lymphocytes (%) (Auto) (test code = 736-9) 24.6 18.0-39.1 [facility] CenterMonocytes (%) (Auto)2019-02-26 13:12:00* Test Item Value Reference Range Interpretation Comments Monocytes (%) (Auto) (test code = 5905-5) 5.3 4.4-11.3 [facility] CenterEosinophils (%) (Auto)2019-02-26 13:12:00 * Test Item Value Reference Range Interpretation Comments Eosinophils (%) (Auto) (test code = 713-8) 1.5 0.0-6.0 [facility] ([facility])2019-02-26 13:12:00* Test Item Value Reference Range Interpretation Comments Basophils (%) (Auto) (test code = 706-2) 0.1 0.0-1.0 [facility]IM GRANULOCYTES %2019-02-26 13:12:00* Test Item Value Reference Range Interpretation Comments IM GRANULOCYTES % (test code = IM GRANULOCYTES %) 0.3 0.0- 1.0 [facility]Neutrophils # (Auto)2019-02-26 13:12:00* Test Item Value Reference Range Interpretation Comments Neutrophils # (Auto) (test code = 751-8) 5.0 2.1-6.9 [facility]Lymphocytes # (Auto)2019-02-26 13:12:00* Test Item Value Reference Range Interpretation Comments Lymphocytes # (Auto) (test code = 03891-2) 1.8 1.0-3.2 [facility]Monocytes # (Auto)2019-02-26 13:12:00* Test Item Value Reference Range Interpretation Comments Monocytes # (Auto) (test code = 742-7) 0.4 0.2-0.8 [facility]Eosinophils # (Auto)2019-02-26 13:12:00* Test Item Value Reference Range Interpretation Comments Eosinophils # (Auto) (test code = 711-2) 0.1 0.0-0.4 [facility] # (Auto)2019-02-26 13:12:00* Test Item Value Reference Range Interpretation Comments Basophils # (Auto) (test code = 704-7) 0.0 0.0-0.1 [facility] CenterAbsolute Immature Granulocyte (auto 2019-02-26 13:12:00* Test Item Value Reference Range Interpretation Comments Absolute Immature Granulocyte (auto (alexa t code = Absolute Immature Granulocyte (auto) 0.02 0-0.1 [facility] CenterLipase2019-09-28 13:07:00* Test Item Value Reference Range Interpretation Comments Lipase (test code = 3040-3) 38 8-78 [facility] CenterUrine Hjaqm7098-87-30 12:55:00* Test Item Value Reference Range Interpretation Comments Urine Color (test code = 5778-6) YELLOW YELLOW [facility] Zzpkuaj9749-73-52 12:55:00* Test Item Value Reference Range Interpretation Comments Urine Clarity (test code = 44678-6) CLEAR CLEAR [facility] Specific Ezjvebp9410-41-53 12:55:00 * Test Item Value Reference Range Interpretation Comments Urine Specific [place] (test code = 5811-5) >=1.030 1.010-1.02 5 [facility] [id number] 12:55:00* Test Item Value Reference Range Interpretation Comments Urine pH (test code = 21209-9) 6.5 5-7 [facility] Leukocyte Pqsdhkrf7183-87-83 12:55:00* Test Item Value Reference Range Interpretation Comments Urine Leukocyte Esterase (test code = 31750-0) NEGATIVE NEGATIV E [facility] Jnyjquq6202-48-83 12:55:00* Test Item Value Reference Range Interpretation Comments Urine Nitrite (test code = 31563-2) NEGATIVE NEGATIVE [facility] Muuochb0293-83-13 12:55:00* Test Item Value Reference Range Interpretation Comments Urine Protein (test code = 25305-5) TRACE NEGATIVE H [facility] Glucose (UA)2019-02-26 12:55:00* Test Item Value Reference Range Interpretation Comments Urine Glucose (UA) (test code = 70066-6) NEGATIVE NEGATIVE [facility] Cyuvkuf3145-68-07 12:55:00* Test Item Value Reference Range Interpretation Comments Urine Ketones (test code = 48436-3) NEGATIVE NEGATIVE [facility] Dyaonpjkmnmv5443-23-45 12:55:00* Test Item Value Reference Range Interpretation Comments Urine Urobilinogen (test code = 90664-5) 0.2 0.2-1 [facility] Uhguentbr1915-55-04 12:55:00* Test Item Value Reference Range Interpretation Comments Urine Bilirubin (test code = 1977-8) NEGATIVE NEGATIVE [facility] Egoux5139-01-17 12:55:00* Test Item Value Reference Range Interpretation Comments Urine Blood (test code = 76011-7) NEGATIVE NEGATIVE [facility] Lhvch0456-24-71 12:55:00* Test Item Value Reference Range Interpretation Comments Urine Color (test code = 5778-6) YELLOW YELLOW [facility] Sgzermh0744-19-75 12:55:00* Test Item Value Reference Range Interpretation Comments Urine Clarity (test code = 97711-7) CLEAR CLEAR [facility] Specific Pkesvea6168-28-27 12:55:00 * Test Item Value Reference Range Interpretation Comments Urine Specific [place] (test code = 5811-5) >=1.030 1.010-1.02 5 [facility] [id number] 12:55:00* Test Item Value Reference Range Interpretation Comments Urine pH (test code = 41500-9) 6.5 5-7 [facility] Leukocyte Akwzfrcg5279-55-06 12:55:00* Test Item Value Reference Range Interpretation Comments Urine Leukocyte Esterase (test code = 55798-3) NEGATIVE NEGATIV E [facility] Ydkldyq1664-76-20 12:55:00* Test Item Value Reference Range Interpretation Comments Urine Nitrite (test code = 19657-5) NEGATIVE NEGATIVE [facility] Zlvaswh9898-96-98 12:55:00* Test Item Value Reference Range Interpretation Comments Urine Protein (test code = 77582-8) TRACE NEGATIVE H [facility] Glucose (UA)2019-02-26 12:55:00* Test Item Value Reference Range Interpretation Comments Urine Glucose (UA) (test code = 04436-3) NEGATIVE NEGATIVE [facility] Indarhq8917-49-23 12:55:00* Test Item Value Reference Range Interpretation Comments Urine Ketones (test code = 75328-9) NEGATIVE NEGATIVE [facility] Ydzbfvzmjdsf6482-29-68 12:55:00* Test Item Value Reference Range Interpretation Comments Urine Urobilinogen (test code = 31479-0) 0.2 0.2-1 [facility] Ajmsiabjk7873-94-47 12:55:00* Test Item Value Reference Range Interpretation Comments Urine Bilirubin (test code = 1977-8) NEGATIVE NEGATIVE [facility] Xpqcg5803-89-09 12:55:00* Test Item Value Reference Range Interpretation Comments Urine Blood (test code = 57405-8) NEGATIVE NEGATIVE [facility] CenterLIVER FUNCTION HHHRH2764-92-48 09:03:00* Test Item Value Reference Range Interpretation [...] code = ALKP) 98 U/L 32-104 N VFMMBG6564-09-98 09:03:00* Test Item Value Reference Range Interpretation Comments LIPASE (test code = LIP) 42 U/L 0-190 N URINALYSIS [id number] 08:56:00* Test Item Value Reference Range Interpretation [...] = LEUU) SMALL NEGA TIVE A UA NKPITTGQJLA0135-88-93 08:56:00* Test Item Value Reference Range Interpretation Comments UA WBC (test code = WBCU) 0-2 #WBC/HPF 0-2 UA RBC (test code = RBCU) 0-2 #RBC/HPF 0-2 UA BACTERIA (test code = BACU) 1+ /HPF NONE-TRACE A UA SQUAMOUS CELLS (test code = SQU) 1+ /LPF NONE-TRACE A UR HCG [id number] 08:56:00* Test Item Value Reference Range Interpretation Comments UR HCG QUAL (test code = HCGQLU) NEGATIVE NEGATIVE URINALYSIS DLHPRAEB7761-03-82 08:52:00* Test Item Value Reference Range Interpretation [...] = LEUU) SMALL NEGA TIVE A UA AJWDFZUELQI0259-55-01 08:52:00* Test Item Value Reference Range Interpretation Comments UA WBC (test code = WBCU) #WBC/HPF 0-2 UA RBC (test code = RBCU) #RBC/HPF 0-2 UA BACTERIA (test code = BACU) /HPF NONE-TRACE UA SQUAMOUS CELLS (test code = SQU) /LPF NONE-TRACE UR HCG [id number] 08:52:00* Test Item Value Reference Range Interpretation Comments UR HCG QUAL (test code = HCGQLU) NEGATIVE URINALYSIS [id number] 08:52:00* Test Item Value Reference Range Interpretation [...] = LEUU) SMALL NEGA TIVE A UA CLMSHAJGWKE1240-27-42 08:52:00* Test Item Value Reference Range Interpretation Comments UA WBC (test code = WBCU) #WBC/HPF 0-2 UA RBC (test code = RBCU) #RBC/HPF 0-2 UA BACTERIA (test code = BACU) /HPF NONE-TRACE UA SQUAMOUS CELLS (test code = SQU) /LPF NONE-TRACE UR HCG [id number] 08:52:00* Test Item Value Reference Range Interpretation Comments UR HCG QUAL (test code = HCGQLU) NEGATIVE NEGATIVE URINALYSIS [id number] 08:52:00* Test Item Value Reference Range Interpretation [...] = LEUU) SMALL NEGA TIVE A UA [id number] 08:52:00* Test Item Value Reference Range Interpretation Comments UA WBC (test code = WBCU) #WBC/HPF 0-2 UA RBC (test code = RBCU) #RBC/HPF 0-2 UA BACTERIA (test code = BACU) /HPF NONE-TRACE UA SQUAMOUS CELLS (test code = SQU) /LPF NONE-TRACE UR HCG [id number] 08:52:00* Test Item Value Reference Range Interpretation Comments UR HCG QUAL (test code = HCGQLU) NEGATIVE LACTIC ACID [id number] 08:40:00* Test Item Value Reference Range Interpretation Comments LACTIC ACID POC (test code = LACTP) 1.59 mmol/L 0.9-1.70 N CBC W/AUTO [id number] 08:38:00* Test Item Value Reference Range Interpretation [...] 0.04 x10 3/uL 0.0-0.20 N CHEMISTRY 8 BCYVJWE3240-39-37 08:25:00* Test Item Value Reference Range Interpretation [...] GFRP) 79 58-1 35 N CHEMISTRY 8 QOSRBMS5729-29-31 08:25:00* Test Item Value Reference Range Interpretation [...] = GFRP) 79 58-1 35 N URINALYSIS [id number] 09:15:00* Test Item Value Reference Range Interpretation [...] FEW #/LPF FEW Urine Source? Clean CatchSURGICAL WSHRIANCO7060-36-64 11:30:00 RUN DATE: 02/10/19 [facility] *LIVE* PAGE 1 RUN TIME: 1130 Specimen Inqui ry RUN USER: INTERFACE PATIENT: ANGELA ESPINOSA ACCT #: [id number] LOC: P7 POD B U #: [id number] AGE/SX: 43/F ROOM: [facility] RE02[facility]05[facility] DR: Thai Escobedo MD : 79 BED: 1 DIS: 02/09/19 STATUS: DIS IN TLOC: SPEC #: [id number] RECD: 02/08/19 STATUS: SH[place] REQ #: [id number] MICHELLE: 02/08/1943 [facility] DR: Thai Escobedo MD ENTERED: 02/08/19 SP [...] Inquiry RUN USER: AMANDA ODEN SPEC #: [id number] PATIENT: ANGELA ESPINOSA #[id number] (Co ntinued) FINAL DIAGNOSIS A-TERMINAL ILEUM, BIOPSY: [...] with focal hyperplastic changes. - See luther t. GROSS DESCRIPTION A-TERMINAL ILEUM: Multiple pieces of [...] ON NEXT PAGE RUN DATE: 02/10/19 [facility] *LIVE* PAGE 3 RUN TIME: 1130 Specimen Inquiry RUN USER: INTERFACE SPEC #: [id number] PATIENT: ANGELA ESPINOSA #[id number] (Continued)--- --------- Signed SIGNATURE ON Simon Mooney MD 02/10/19 1130 END OF REPORT [id number] 07:44:00* Test Item Value Reference Range Interpretation Comments GLUBED (test code = GLUBED) 109 mg/dL 74-106 H Performed by certified styrene dehydration reactor operator at [facility] [id number] 12:21:00* Test Item Value Reference Range Interpretation Comments GLUBED (test code = GLUBED) 92 MG/DL 70-105 N [id number] 08:10:00* Test Item Value Reference Range Interpretation Comments GLUBED (test code = GLUBED) 73 MG/DL 70-105 N RENAL FUNCTION [id number] 06:02:00* Test Item Value Reference Range Interpretation [...] code = PHOS) 2.2 mg/dL 2.7-4.5 L [id number] 05:57:00* Test Item Value Reference Range Interpretation Comments MAGNESIUM (test code = MAG) 1.8 mg/dL 1.4-2.6 N [id number] 05:44:00* Test Item Value Reference Range Interpretation Comments GLUBED (test code = GLUBED) 88 MG/DL 70-105 N [id number] 00:19:00* Test Item Value Reference Range Interpretation Comments GLUBED (test code = GLUBED) 98 MG/DL 70-105 N [id number] 12:33:00* Test Item Value Reference Range Interpretation Comments GLUBED (test code = GLUBED) 76 MG/DL 70-105 N [id number] 08:46:00* Test Item Value Reference Range Interpretation Comments GLUBED (test code = GLUBED) 72 MG/DL 70-105 N BASIC METABOLIC [id number] 06:55:00* Test Item Value Reference Range Interpretation [...] CA) 8.7 mg/dL 8.8-10.2 L CBC W/AUTO [id number] 06:38:00* Test Item Value Reference Range Interpretation [...] = BA#) 0.02 x10 3/uL 0.0-0.20 N [id number] 10:15:00* Test Item Value Reference Range Interpretation Comments LIPASE (test code = LIP) 12 U/L 0-190 N [id number] 07:39:00* Test Item Value Reference Range Interpretation Comments GLUBED (test code = GLUBED) 75 MG/DL 70-105 N BASIC METABOLIC [id number] 06:45:00* Test Item Value Reference Range Interpretation [...] IGHT INCREASE FROM PREVIOUS HX CBC W/AUTO [id number] 05:32:00* Test Item Value Reference Range Interpretation [...] 0.03 x10 3/uL 0.0-0.20 N BASIC METABOLIC [id number] 12:04:00* Test Item Value Reference Range Interpretation [...] code = CA) 6.9 mg/dL 8.8-10.2 L [id number] 11:36:00* Test Item Value Reference Range Interpretation Comments GLUBED (test code = GLUBED) 83 MG/DL 70-105 N - CT ABD PELVIS W/[id number] 09:29:00Patient Name: ANGELA ESPINOSA Unit No: [id number] EXAMS: CPT CODE: [id number] CT ABD PELVIS W/CONT 88083 CT abdomen and pelvis with IV contrast. [...] aspiration or pneu monia. Name: ANGELA ESPINOSA [facility] Phys: Nabor Richards [address] OB: 1975 Age: 43 Sex: [place] [address] Loc: P.0209 1 Exam Date: Status: ADM IN PH: FAX: PAGE 1 Signed Report (CONTINUED) Patient Name: ANGELA ESPINOSA Unit No: [id number] EXAMS: CPT CODE: [id number] CT ABD PELVIS W/CONT 14058 <Continued> Bilateral nephrolithiasis without evidence of obstructive uropathy. Hepatic steatosis. at 0929 Reported and signed by: NAREN CANTU M.D. CC: Faith Quan MD; Thai Escobedo MD; Nabor Moss Technologist: LENY Templeton(R),(CT) CTDI: 35.96 DLP: 1887 Trscr Dt/Tm: 02/06/2019 (0929) by:[email or web address] Printed Date/Time: 02/06/2019 (3032) Name: ANGELA ESPINOSA [facility] Phys: Nabor Richards [address] : 1975 Age: 43 Sex: [place] [address] Loc: P.0209 1 Exam Date: 02/06/2019 Status: ADM IN PH: FAX: PAGE 2 Signed Report [id number] 08:53:00* Test Item Value Reference Range Interpretation Comments LIPASE (test code = LIP) 13 U/L 0-190 N CBC W/AUTO [id number] 06:38:00* Test Item Value Reference Range Interpretation [...] = BA#) 0.02 x10 3/uL 0.0-0.20 N [id number] 06:25:00* Test Item Value Reference Range Interpretation Comments GLUBED (test code = GLUBED) 88 MG/DL 70-105 N [id number] 23:28:00* Test Item Value Reference Range Interpretation Comments GLUBED (test code = GLUBED) 83 MG/DL 70-105 N [id number] 12:31:00* Test Item Value Reference Range Interpretation Comments AMYLASE (test code = JANIE) 82 U/L 0-100 N [id number] 12:31:00* Test Item Value Reference Range Interpretation Comments LIPASE (test code = LIP) 16 U/L 0-190 N [id number]-[id number] 11:57:00* Test Item Value Reference Range Interpretation Comments TROPONIN-I (test code = TROPI) < 0.30 ng/mL 0.00-0.30 N INTERPRETATIVE DATA:Negative or inconclusive reuslts do not exclude myocardialinfarction. Serial tests at appropriate intervals may benecessary. RECOLLECT DUE TO GROSS HEMOLYSISLACTIC [id number] 09:37:00* Test Item Value Reference Range Interpretation Comments LACTIC ACID (test code = LACT) 10.6 mg/dL 4.5-18.0 N [id number] 06:11:00* Test Item Value Reference Range Interpretation Comments GLUBED (test code = GLUBED) 123 MG/DL 70-105 H ARTERIAL BLOOD [id number] 05:40:00* Test Item Value Reference Range Interpretation [...] code = THB) 14.5 g/dL 12.0-16.0 N [id number] 04:37:00* Test Item Value Reference Range Interpretation Comments GLUBED (test code = GLUBED) 122 MG/DL 70-105 H [id number] 04:29:00* Test Item Value Reference Range Interpretation Comments TROPONIN-I (test code = TROPI) < 0.30 ng/mL 0.00-0.30 N INTERPRETATIVE DATA:Negative or inconclusive reuslts do not exclude myocardialinfarction. Serial tests at appropriate intervals may benecessary. BASIC METABOLIC [id number] 04:22:00* Test Item Value Reference Range Interpretation [...] = CA) 6.7 mg/dL 8.8-10.2 L LACTIC [id number] 04:20:00* Test Item Value Reference Range Interpretation Comments LACTIC ACID (test code = LACT) 25.9 mg/dL 4.5-18.0 HH Critical Value reported toFirst Name:HILARY Jaspre Name:RADHA READ BACK AND VERIFIEDby PSVITLANA, on 02/05/19, @ 0420. [id number] 04:20:00* Test Item Value Reference Range Interpretation Comments MAGNESIUM (test code = MAG) 1.9 mg/dL 1.4-2.6 N CBC W/AUTO [id number] 04:09:00* Test Item Value Reference Range Interpretation [...] 3/uL 0.0-0.20 N - PULM VENT PERF [id number] 04:06:00Patient Name: ANGELA ESPINOSA Unit No: [id number] EXAMS: CPT CODE: [id number] PULM VENT PERF IMAG 06232 AFTER HOURS SERVICE ON: 02/05/2019 4:02 AM [...] MD; Thai Escobedo MD Technologist: ALEXIS VALDOVINOS [facility] Dt/Tm: 02/05/2019 (040) by:[email or web address] Printed Date/Time : 02/05/2019 (408) [facility]: Homer Lopez MD [address] : 1975 Age: 43 Sex: [place] [address] Loc: P.0209 1 Exam Date: 02/05/2019 Status: ADM IN PH: FAX: PAGE 1 Signed Report - CT HEAD/BRAIN W/O [id number] 00:56:00Patient Name: ANGELA ESPINOSA Unit No: [id number] EXAMS: CPT CODE: [id number] CT HEAD/BRAIN W/O CONT 18711 AFTER HOURS SERVICE ON: 02/05/2019 12:56 AM [...] Technologist: Melani Kaur CTDI: 62.55 DLP: 1063 [facility] Dt/Tm: 02/05/2019 (55) by:[email or web address] Printed Date/Time: 02/05/2019 (99) [facility]: Homer Lopez MD [address] : 1975 Age: 43 Sex: [place] [address] Loc: P.0209 1 Exam Date: 02/05/2019 Status: ADM IN PH: FAX: PAGE 1 Signed Report [id number] 00:38:00* Test Item Value Reference Range Interpretation [...] FEU) OF THESE CONDITIONSIS VALIDATED BY THE BUDGET RECORD CLERK OF THE METHOD. A NEGATIVE DDIMER RESULT WHEN COMBINED WITH A CLINICALASSESSMENT OF LOW PRETEST PROBABILITY HAS BEEN SHOWN TO HAVEA HIGH NEGATIVE PREDICTIVE VALUE OF DVT OR PE. D-DIMER VALUES >500 ng/mL ARE NOT DIAGNOSTIC FOR DVT,PEOR DIC WITHOUT OTHER CONFIRMATORY TESTS AND APPROPRIATECLINICAL EVALUATIONS. [id number] 00:37:00* Test Item Value Reference Range Interpretation Comments ACETAMINOPHEN (test code = ACET) 5 mcg/mL 10-30 L INTERPRETATIVE DATA:Toxic manifestations have been observed at serumconcentrations >100 mcg/mL, however the toxic range isgenerally reported at>200 mcg/mL. The therapeutic range varies and has been reported inliterature to be in the range of 10-30 mcg/mL. [id number] 00:37:00* Test Item Value Reference Range Interpretation Comments SALICYLATE (test code = ANAHI) 3 mcg/mL 30-100 L INTERPRETATIVE DATA:Therapeutic range: 30.0 - 100.0 mcg/mL [id number] 00:37:00* Test Item Value Reference Range Interpretation Comments ALCOHOL (test code = ALC) <10 mg/dl 0-450 N DRUGS OF ABUSE SCREEN [id number] 00:00:00* Test Item Value Reference Range Interpretation [...] 25 ng/mL. The method performed by the [facility]for [facility] Drugs of Abuse is performed as a medical screeningtest only. If confirmation testing is required, thephysician must order the confirmatory test within 5 days ofthe specimen's collection date. The specimen will be sentout to an independent reference laboratory. - XR CHEST 1 [id number] 23:55:00Patient Name: ANGELA ESPINOSA Unit No: [id number] Report Has Been Amended EXAMS: CPT CODE: [id number] XR CHEST 1 V 05202 Addendum - 02/04/2019 SIGNED 02/04/2019 ADDENDUM: [id number] RAD/CXR1 Addendum: Above results were called to Dr. Bird at11:52 PM. FOR INTERNAL CODING PURPOSES ONLY RESULT CODE: CVR at 3425 Reported and signed by: JEET GARCIA M.D. Transcribed: 02/04/2019 (7573) [email or web address] Report Chest one view Dictation location [...] inspiratory effort. Mild upper lobe atelectasis. at 5851 Reported and signed by: JEET GARCIA M.D. CC: Homer Bird MD; Faith Quan MD Technologist: Milagro Carty Time: DAP (Gy m2): Air Kerma (mGy): Trscr Dt/Tm: 02/04/2019 (7158) by:Syed Printed Date/Time: 02/04/2019 (3065) Name: JESÚS REJIA [facility] Phys: Debbie Lopez MD [address] : 1975 Age: 43 Sex: [place] [address] Loc: P.ERS Exam Date: 02/04/2019 Status: REG ER PH: FAX: PAGE 1 Signed Report ARTERIAL BLOOD [id number] 23:51:00* Test Item Value Reference Range Interpretation [...] g/dL 12.0-16.0 N - XR CHEST 1 [id number] 23:51:00Patient Name: ANGELA ESPINOSA Unit No: [id number] EXAMS: CPT CODE: [id number] XR CHEST 1 V 77118 Chest one view Dictation location N 13 [...] m2): Air Kerma (mGy): Trscr Dt/Tm: 02/04/2019 (5811) by:SilasMVT Printed Date/Time: 02/04/2019 (7623) Name: ANGELA ESPINOSA [facility] Phys: Homer Lopez MD [address] : 1975 Age: 43 Sex: [place] [address] Loc: P.ERS Exam Date: 02/04/2019 Status: REG ER PH: FAX: PAGE 1 Signed Report TROPONIN I [id number] 22:54:00* Test Item Value Reference Range Interpretation Comments TROPONIN I RAPID (test code = TROPIRAP) 0.00 ng/mL 0.00-0.08 N - The use of serial sampling and testing protocol is a recommended practice- An elevated tropnin level alone is often not sufficient for diagnosis of myocardial infarction. [id number] 22:34:00* Test Item Value Reference Range Interpretation Comments GLUBED (test code = GLUBED) 96 MG/DL 70-105 N URINALYSIS [id number] 22:08:00* Test Item Value Reference Range Interpretation [...] = LEUU) SMALL NEGA TIVE A UA [id number] 22:08:00* Test Item Value Reference Range Interpretation Comments UA WBC (test code = WBCU) 11-20 #WBC/HPF 0-2 A UA RBC (test code = RBCU) 3-5 #RBC/HPF 0-2 A UA BACTERIA (test code = BACU) 3+ /HPF NONE-TRACE A UA SQUAMOUS CELLS (test code = SQU) 1+ /LPF NONE-TRACE A UA YEAST (test code = YEASTU) 3+ /HPF NONE SEEN A URINALYSIS [id number] 21:49:00* Test Item Value Reference Range Interpretation [...] = LEUU) SMALL NEGA TIVE A UA [id number] 21:49:00* Test Item Value Reference Range Interpretation Comments UA WBC (test code = WBCU) #WBC/HPF 0-2 UA RBC (test code = RBCU) #RBC/HPF 0-2 UA BACTERIA (test code = BACU) /HPF NONE-TRACE UA SQUAMOUS CELLS (test code = SQU) /LPF NONE-TRACE URINALYSIS [id number] 21:49:00* Test Item Value Reference Range Interpretation [...] = LEUU) SMALL NEGA TIVE A UA [id number] 21:49:00* Test Item Value Reference Range Interpretation Comments UA WBC (test code = WBCU) #WBC/HPF 0-2 UA RBC (test code = RBCU) #RBC/HPF 0-2 UA BACTERIA (test code = BACU) /HPF NONE-TRACE UA SQUAMOUS CELLS (test code = SQU) /LPF NONE-TRACE - CT ABD PELVIS [id number] 21:45:00Patient Name: ANGELA ESPINOSA Unit No: [id number] EXAMS: CPT CODE: [id number] CT ABD PELVIS W/CONT 34862 CT SCAN OF THE ABDOMEN AND PELVIS [...] mid pole left kidney. Name: ANGELA ESPINOSA [facility] Phys: Homer Lopez MD [address] ADAIRB: 1975 Age: 43 Sex: F [place] [address] Loc: P.ERS Exam Date: 02/04/2019 Status: REG ER PH: FAX: PAGE 1 Signed Report (CONTINU ED) Patient Name: ANGELA ESPINOSA Unit No: [id number] XAMS: CPT CODE: [id number] CT ABD PELVIS W/CONT 77015 <Continued> at 2145 Reported and signed by: JEET GARCIA M.D. CC: Homer Bird MD; Faith Quan MD Technologist: Kim Horn (CT),(MR) CTDI: 27.92 DLP: 1520 Trscr Dt/Tm: 02/04/2019 (2144) by:SilasMVWashington Printed Date/Time: 02/04/2019 (2147) Name: ANGELA ESPINOSA [facility] Phys: Homer Lopez MD [address] : 1975 Age: 43 Sex: [place] [address] Loc: P.ERS Exam Date: 02/04/2019 Status : REG ER PH: FAX: PAGE 2 Sign ed Report COMPREHENSIVE METABOLIC [id number] 21:16:00* Test Item Value Reference Range Interpretation [...] code = ALKP) 104 U/L 32-104 N [id number] 21:16:00* Test Item Value Reference Range Interpretation Comments LIPASE (test code = LIP) 22 U/L 0-190 N PROTHROMBIN [id number] 20:55:00* Test Item Value Reference Range Interpretation [...] heart valves; 2.5-3.5recurrent systemic embolism. CBC W/AUTO [id number] 20:44:00* Test Item Value Reference Range Interpretation [...] BA#) 0.03 x10 3/uL 0.0-0.20 N URINALYSIS [id number] 11:30:00* Test Item Value Reference Range Interpretation [...] Urine Source? Clean CatchDRUGS OF ABUSE SCREEN [id number] 11:20:00* Test Item Value Reference Range Interpretation [...] code = [place]) NEGATIVE <300 ng/mL URINALYSIS [id number] 11:14:00* Test Item Value Reference Range Interpretation [...] Urine Source? Clean CatchDRUGS OF ABUSE SCREEN [id number] 11:09:00* Test Item Value Reference Range Interpretation [...] = [place]) NEGATIVE <300 ng/mL BASIC METABOLIC [id number] 08:41:00* Test Item Value Reference Range Interpretation [...] CA) 8.8 mg/dL 8.5-10.1 N HCG SERUM [id number] 08:41:00* Test Item Value Reference Range Interpretation Comments HCG SERUM QUAL (test code = HCGQL) NEGATIVE NEGATIVE This HCGQL test is NOT applicable for MALE patients.Check with nurse about probable order error.If Tumor Marker Test needed, nurse should order test "HCGTU"(Test #550.24322) [id number] 08:41:00* Test Item Value Reference Range Interpretation Comments TROPONIN-I (test code = TROPI) <0.015 ng/mL 0-0.045 N HEPATIC FUNCTION [id number] 08:37:00* Test Item Value Reference Range Interpretation [...] reference range due to change in reagent. [id number] 08:37:00* Test Item Value Reference Range Interpretation Comments LIPASE (test code = LIP) 85 U/L 73.0-393.0 N BASIC METABOLIC [id number] 08:29:00* Test Item Value Reference Range Interpretation [...] code = CA) mg/dL 8.5-10.1 HCG SERUM [id number] 08:29:00* Test Item Value Reference Range Interpretation Comments HCG SERUM QUAL (test code = HCGQL) NEGATIVE NEGATIVE This HCGQL test is NOT applicable for MALE patients.Check with nurse about probable order error.If Tumor Marker Test needed, nurse should order test "HCGTU"(Test #550.98182) [id number] 08:29:00* Test Item Value Reference Range Interpretation Comments TROPONIN-I (test code = TROPI) ng/mL 0-0.045 BASIC METABOLIC [id number] 08:28:00* Test Item Value Reference Range Interpretation [...] code = CA) mg/dL 8.5-10.1 HCG SERUM [id number] 08:28:00* Test Item Value Reference Range Interpretation Comments HCG SERUM QUAL (test code = HCGQL) NEGATIVE [id number] 08:28:00* Test Item Value Reference Range Interpretation Comments TROPONIN-I (test code = TROPI) ng/mL 0-0.045 TROPONIN I [id number] 08:19:00* Test Item Value Reference Range Interpretation [...] only if similarmethodology is used. CBC W/O [id number] 08:17:00* Test Item Value Reference Range Interpretation [...] MPV) 9.4 fL 6.7-11.0 N CBC W/O [id number] 08:14:00* Test Item Value Reference Range Interpretation [...] MPV) fL 6.7-11.0 - XR CHEST 1 [id number] 07:53:00 FAX: Dany Kaur MD [phone] Shepherd: B St: REG Name: ANGELA DUPREE [facility] : [birth year] Age/S: 43/F [address] Unit #: [id number] Loc: [place] [address] Phys: Dany Kaur MD Acct: [id number] Dis Date: Status: REG ER PHONE #: [phone] Exam Date: 01/31/2019 0744 FAX #: [phone] Reason: CHEST PAIN EXAMS: CPT CODE: [id number] XR CHEST 1 V 27412 REASON FOR EXAM: CHEST PAIN EXAM ORDER [...] Signed Re port - CT ABD PELVIS [id number] 11:27:00 Name: ANGELA ESPINOSA [facility] : 1975 Age/S: 43 / F [address] Unit #: [id number] Loc: [place] [address] Phys: Ashutosh Quijano DO Acct: [id number] Di s Date: Status: REG ER PHONE #: Exam Date: 01/27/2019 1050 FAX #: Reason: abd pain, r/o appendicitis EXAMS: CPT CODE: [id number] CT ABD PELVIS W/CONT 26784 REASON FOR EXAM: abd pain, r/o appendicitis [...] Pinto M.D. CC: Nyla Quijano DO Technologist:Elayne ForrestRT(R),CT CTDI: DLP: Trnscb Da te/Time: 01/27/2019 (3544) t.[email or web address] [email or web address] Orig Print D/T: S: 0 01/27/2019 (7670) PAGE 1 Signed Report URINALYSIS [id number] 10:00:00* Test Item Value Reference Range Interpretation [...] #/LPF FEW Urine Source? Clean CatchBASIC METABOLIC [id number] 09:54:00* Test Item Value Reference Range Interpretation [...] CA) 8.6 mg/dL 8.5-10.1 N HEPATIC FUNCTION [id number] 09:54:00* Test Item Value Reference Range Interpretation [...] reference range due to change in reagent. [id number] 09:54:00* Test Item Value Reference Range Interpretation Comments LIPASE (test code = LIP) 72 U/L 73.0-393.0 L HCG SERUM [id number] 09:54:00* Test Item Value Reference Range Interpretation Comments HCG SERUM QUAL (test code = HCGQL) NEGATIVE NEGATIVE This HCGQL test is NOT applicable for MALE patients.Check with nurse about probable order error.If Tumor Marker Test needed, nurse should order test "HCGTU"(Test #550.28035) [id number] 09:54:00* Test Item Value Reference Range Interpretation Comments TROPONIN-I (test code = TROPI) <0.015 ng/mL 0-0.045 N BASIC METABOLIC [id number] 09:42:00* Test Item Value Reference Range Interpretation [...] code = CA) mg/dL 8.5-10.1 HEPATIC FUNCTION [id number] 09:42:00* Test Item Value Reference Range Interpretation [...] TOTAL (test code = ALKP) IUnit/L 45-117 [id number] 09:42:00* Test Item Value Reference Range Interpretation Comments LIPASE (test code = LIP) U/L 73.0-393.0 HCG SERUM [id number] 09:42:00* Test Item Value Reference Range Interpretation Comments HCG SERUM QUAL (test code = HCGQL) NEGATIVE NEGATIVE This HCGQL test is NOT applicable for MALE patients.Check with nurse about probable order error.If Tumor Marker Test needed, nurse should order test "HCGTU"(Test #550.92474) [id number] 09:42:00* Test Item Value Reference Range Interpretation Comments TROPONIN-I (test code = TROPI) ng/mL 0-0.045 BASIC METABOLIC [id number] 09:38:00* Test Item Value Reference Range Interpretation [...] code = CA) mg/dL 8.5-10.1 HEPATIC FUNCTION [id number] 09:38:00* Test Item Value Reference Range Interpretation [...] TOTAL (test code = ALKP) IUnit/L 45-117 [id number] 09:38:00* Test Item Value Reference Range Interpretation Comments LIPASE (test code = LIP) U/L 73.0-393.0 HCG SERUM [id number] 09:38:00* Test Item Value Reference Range Interpretation Comments HCG SERUM QUAL (test code = HCGQL) NEGATIVE [id number] 09:38:00* Test Item Value Reference Range Interpretation Comments TROPONIN-I (test code = TROPI) ng/mL 0-0.045 CBC W/O [id number] 09:37:00* Test Item Value Reference Range Interpretation [...] = MPV) 8.9 fL 6.7-11.0 N URINALYSIS [id number] 09:36:00* Test Item Value Reference Range Interpretation [...] HPF NONE Urine Source? Clean CatchCBC W/O [id number] 09:29:00* Test Item Value Reference Range Interpretation [...] MPV) fL 6.7-11.0 - XR CHEST 1 [id number] 09:11:00 FAX: Nyla Quijano DO Shepherd: B St: REG Name: ANGELA DUPREE [facility] : [birth year] Age/S: 43/F [address] [facility] Unit #: [id number] Loc: [place] [address] Phys: Nyla Quijano DO Acct: [id number] Dis Date: Status: REG ER PHONE #: [phone] Exam Date: 01/27/2019 0843 FAX #: [phone] Reason: CHEST PAIN EXAMS: CPT CODE: [id number] XR CHEST 1 V 68265 REASON FOR EXAM: CHEST PAIN Exam Order [...] Technologist: TRACY CRAWFORD JR Trnscrd Date/Time/By: 01/27/2019 (09) : By: [email or web address] Orig P rint D/T: S: 01/27/2019 (0924) PAGE 1 Signed Report [id number] 15:27:00* Test Item Value Reference Range Interpretation Comments TROPONIN-I (test code = TROPI) <0.015 ng/mL 0-0.045 N - CT ABD PELVIS [id number] 13:50:00 Name: ANGELA ESPINOSA [facility] : 1975 Age/S: 43 / F [address] [facility] Unit #: [id number] [place] [address] Phys: Chacho Aguilar DO Acct: [id number] Dis Date: Status: REG ER PHONE #: [phone] Exam Date: 01/25/2019 1328 FAX #: [phone] Reason: Lower abd pain EXAMS: CPT CODE: [id number] CT ABD PELVIS W/CONT 59116 REASON FOR EXAM: Lower abd pain EXAM [...] 1 Signed Report (CONTINUED) Name: ANGELA ESPINOSA [facility] : 1975 Age/S: 43 / F [address] [facility] Unit #: [id number] Loc: [facility] [place] [address] Phys: Chacho Aguilar DO Acct: [id number] Dis Date: Status: REG ER PHONE #: [phone] Exam Date: 01/25/2019 1328 FAX #: [phone] Reason: Lower abd pain EXAMS: CPT CODE: [id number] CT ABD PELVIS W/CONT 61903 <Continued> IMPRESSION: No acute intra-abdominal process. Hepatic steatosis. at 1350 Reported and signed by: Sanjay Roman MD CC: Vicente Bui MD; Chacho Aguilar DO Technologist:Lupillo Forrest RT(R)(CT) CTDI: DLP: Trnscb Date/Time: 01/25/2019 (1220) [email or web address] Orig Print D/T: S: 01/25/2019 (5920) PAGE 2 Signed Report BASIC METABOLIC [id number] 13:10:00* Test Item Value Reference Range Interpretation [...] CA) 9.4 mg/dL 8.5-10.1 N HEPATIC FUNCTION [id number] 13:10:00* Test Item Value Reference Range Interpretation [...] reference range due to change in reagent. [id number] 13:10:00* Test Item Value Reference Range Interpretation Comments LIPASE (test code = LIP) 77 U/L 73.0-393.0 N HCG SERUM [id number] 13:10:00* Test Item Value Reference Range Interpretation Comments HCG SERUM QUAL (test code = HCGQL) NEGATIVE NEGATIVE This HCGQL test is NOT applicable for MALE patients.Check with nurse about probable order error.If Tumor Marker Test needed, nurse should order test "HCGTU"(Test #550.09994) [id number] 13:10:00* Test Item Value Reference Range Interpretation Comments TROPONIN-I (test code = TROPI) <0.015 ng/mL 0-0.045 N BASIC METABOLIC [id number] 12:58:00* Test Item Value Reference Range Interpretation [...] code = CA) mg/dL 8.5-10.1 HEPATIC FUNCTION [id number] 12:58:00* Test Item Value Reference Range Interpretation [...] TOTAL (test code = ALKP) IUnit/L 45-117 [id number] 12:58:00* Test Item Value Reference Range Interpretation Comments LIPASE (test code = LIP) U/L 73.0-393.0 HCG SERUM [id number] 12:58:00* Test Item Value Reference Range Interpretation Comments HCG SERUM QUAL (test code = HCGQL) NEGATIVE NEGATIVE This HCGQL test is NOT applicable for MALE patients.Check with nurse about probable order error.If Tumor Marker Test needed, nurse should order test "HCGTU"(Test #550.90489) [id number] 12:58:00* Test Item Value Reference Range Interpretation Comments TROPONIN-I (test code = TROPI) ng/mL 0-0.045 BASIC METABOLIC [id number] 12:52:00* Test Item Value Reference Range Interpretation [...] code = CA) mg/dL 8.5-10.1 HEPATIC FUNCTION [id number] 12:52:00* Test Item Value Reference Range Interpretation [...] TOTAL (test code = ALKP) IUnit/L 45-117 [id number] 12:52:00* Test Item Value Reference Range Interpretation Comments LIPASE (test code = LIP) U/L 73.0-393.0 HCG SERUM [id number] 12:52:00* Test Item Value Reference Range Interpretation Comments HCG SERUM QUAL (test code = HCGQL) NEGATIVE NEGATIVE This HCGQL test is NOT applicable for MALE patients.Check with nurse about probable order error.If Tumor Marker Test needed, nurse should order test "HCGTU"(Test #550.77258) [id number] 12:52:00* Test Item Value Reference Range Interpretation Comments TROPONIN-I (test code = TROPI) ng/mL 0-0.045 CBC W/O [id number] 12:48:00* Test Item Value Reference Range Interpretation [...] MPV) 9.0 fL 6.7-11.0 N CBC W/O [id number] 12:47:00* Test Item Value Reference Range Interpretation [...] (test code = MPV) fL 6.7-11.0 URINALYSIS [id number] 10:35:00* Test Item Value Reference Range Interpretation [...] FEW #/HPF NONE Urine Source? Clean CatchURINALYSIS [id number] 10:33:00* Test Item Value Reference Range Interpretation [...] Urine Source? Clean Catch- XR CHEST 1 [id number] 09:26:00 FAX: Marino Abbott [phone] Shepherd: B St: REG FAX: Cahcho Aguilar DO Name: ANGELA ESPINOSA [facility] : 1975 Age/S: 43/F [address] [facility] Unit #: [id number] Loc: [place] [address] Phys: Chacho Aguilar DO Acct: [id number] Dis Date: Status: REG ER PHONE #: [phone] Exam Date: 01/25/2019 08 FAX #: [phone] Reason: Abdominal Pain EXAMS: CPT CODE: [id number] XR CHEST 1 V 93750 REASON FOR EXAM: Abdominal Pain Exam Order Date: 01/25/2019 8:37 AM Ordering M.D.: Chacho Aguilar DO PROCEDURE: - XR CHEST 1 V COMPARISON: Frontal chest x-ray [facility] 2018 FINDINGS: There is mild subsegmental atelecta [...] By: [email or web address] Orig Print D/T: S: 01/25/2019 (07) PAGE 1 Signed Report BASIC METABOLIC [id number] 10:49:00* Test Item Value Reference Range Interpretation [...] CA) 9.3 mg/dL 8.5-10.1 N HEPATIC FUNCTION [id number] 10:49:00* Test Item Value Reference Range Interpretation [...] reference range due to change in reagent. [id number] 10:49:00* Test Item Value Reference Range Interpretation Comments LIPASE (test code = LIP) 161 U/L 73.0-393.0 N CBC W/O [id number] 10:24:00* Test Item Value Reference Range Interpretation [...] MPV) 9.0 fL 6.7-11.0 N CBC W/O [id number] 10:23:00* Test Item Value Reference Range Interpretation [...] code = MPV) fL 6.7-11.0 BASIC METABOLIC [id number] 09:02:00* Test Item Value Reference Range Interpretation [...] CA) 8.8 mg/dL 8.5-10.1 N HEPATIC FUNCTION [id number] 09:02:00* Test Item Value Reference Range Interpretation [...] reference range due to change in reagent. [id number] 09:02:00* Test Item Value Reference Range Interpretation Comments LIPASE (test code = LIP) 196 U/L 73.0-393.0 N HCG SERUM [id number] 09:02:00* Test Item Value Reference Range Interpretation Comments HCG SERUM QUAL (test code = HCGQL) NEGATIVE NEGATIVE This HCGQL test is NOT applicable for MALE patients.Check with nurse about probable order error.If Tumor Marker Test needed, nurse should order test "HCGTU"(Test #550.33248) BASIC METABOLIC [id number] 09:00:00* Test Item Value Reference Range Interpretation [...] code = CA) mg/dL 8.5-10.1 HEPATIC FUNCTION [id number] 09:00:00* Test Item Value Reference Range Interpretation [...] TOTAL (test code = ALKP) IUnit/L 45-117 [id number] 09:00:00* Test Item Value Reference Range Interpretation Comments LIPASE (test code = LIP) U/L 73.0-393.0 HCG SERUM [id number] 09:00:00* Test Item Value Reference Range Interpretation Comments HCG SERUM QUAL (test code = HCGQL) NEGATIVE NEGATIVE This HCGQL test is NOT applicable for MALE patients.Check with nurse about probable order error.If Tumor Marker Test needed, nurse should order test "HCGTU"(Test #550.00377) URINALYSIS [id number] 08:54:00* Test Item Value Reference Range Interpretation [...] NONE A Urine Source? Clean CatchBASIC METABOLIC [id number] 08:53:00* Test Item Value Reference Range Interpretation [...] code = CA) mg/dL 8.5-10.1 HEPATIC FUNCTION [id number] 08:53:00* Test Item Value Reference Range Interpretation [...] TOTAL (test code = ALKP) IUnit/L 45-117 [id number] 08:53:00* Test Item Value Reference Range Interpretation Comments LIPASE (test code = LIP) U/L 73.0-393.0 HCG SERUM [id number] 08:53:00* Test Item Value Reference Range Interpretation Comments HCG SERUM QUAL (test code = HCGQL) NEGATIVE CBC W/O [id number] 08:46:00* Test Item Value Reference Range Interpretation [...] MPV) 9.0 fL 6.7-11.0 N CBC W/O [id number] 08:45:00* Test Item Value Reference Range Interpretation [...] code = MPV) fL 6.7-11.0 BASIC METABOLIC [id number] 08:16:00* Test Item Value Reference Range Interpretation [...] CA) 9.4 MG/DL 8.5-10.1 N HEPATIC FUNCTION [id number] 08:16:00* Test Item Value Reference Range Interpretation [...] code = ALKP) 96 Unit/L 45-117 N [id number] 08:16:00* Test Item Value Reference Range Interpretation Comments LIPASE (test code = LIP) 83 Unit/L 114-286 L BASIC METABOLIC [id number] 08:11:00* Test Item Value Reference Range Interpretation [...] CA) 9.4 MG/DL 8.5-10.1 N HEPATIC FUNCTION [id number] 08:11:00* Test Item Value Reference Range Interpretation [...] TOTAL (test code = ALKP) Unit/L 45-117 [id number] 08:11:00* Test Item Value Reference Range Interpretation Comments LIPASE (test code = LIP) 83 Unit/L 114-286 L HCG [id number] 08:05:00* Test Item Value Reference Range Interpretation [...] 48 hours UA RFLX MICR CULT IF [id number] 08:05:00* Test Item Value Reference Range Interpretation [...] for culture: Dysuria/FrequencyUA RFLX MICR CULT IF [id number] 08:05:00* Test Item Value Reference Range Interpretation [...] URINE: CLEAN CATCHIndication for culture: Dysuria/FrequencyCBC W/AUTO [id number] 08:02:00* Test Item Value Reference Range Interpretation [...] (test code = MDIFF) NO DIFF/SCN CRITERIA [id number] 16:54:00 RUN DATE: 12/29/18 [facility] - LAB *LIVE* PAGE 1 RUN TIME: 1654 Specimen Inqui ry RUN USER: INTERFACE PATIENT: ANGELA ESPINOSA ACCT #: [id number] LOC: Sahra U #: [id number] AGE/SX: 43/F ROOM: [facility] RE12/26/18[facility] DR: Sammy Irene MD : 79 BED: 1 DIS: 12/28/18 STATUS: DIS IN TLOC: SPEC #: [id number] RECD: 12/28/18 STATUS: SHAGUFTA REQ #: [id number] MICHELLE: 12/27/18 [facility] DR: Sammy Irene MD ENTERED: 12/28/18 SP TYPE: SURG OTHR DR: No Marissa aura or Family Physician Self Referred Segun Felix MDORDERED: AB/PAS RANJAN, SURG PATH LVL 08/31, PATH STAIN GROU COPIES TO: No Primary or Family Phys[place] [address] [address] [email or web address] Segun Alfonso MD [address] [address] HISTOLOGY: TISSUE ID BLK PCS MARIO LEV [...] UED ON NEXT PAGE RUN DATE: 12/29/18 [facility] - LAB *LIVE* PAGE 2 RUN TIME: 1654 Specimen Inquiry RUN USER: INTERFACE SPEC #: [id number] LORI TIENT: ANGELA ESPINOSA #[id number] (Continued) CPT CODES CPT CODE(S): 22167T6 , 79026 , 90299 , , , , FINAL DIAGNOSIS A. [...] all as B. ba/nr Grossing performed at [facility] Pathology, [address] [place] [address], [address], [place], [place] [address]. Industrial Maintenance Tech: Edd Hopkins M.D. MICROSCOPIC DESCRIPTION A. Duoden [...] Signed SIGNATURE ON FILE Darren Shah 12/29/18 4601 END OF REPORT BASIC METABOLIC [id number] 04:41:00* Test Item Value Reference Range Interpretation [...] CA) 8.2 MG/DL 8.5-10.1 L CBC W/AUTO [id number] 04:33:00* Test Item Value Reference Range Interpretation [...] = MDIFF) NO DIFF/SCN CRITERIA COMPREHENSIVE METABOLIC [id number] 05:28:00* Test Item Value Reference Range Interpretation [...] ALKP) 77 Unit/L 45-117 N CBC W/AUTO [id number] 05:09:00* Test Item Value Reference Range Interpretation [...] = MDIFF) NO DIFF/SCN CRITERIA COMPREHENSIVE METABOLIC [id number] 07:45:00* Test Item Value Reference Range Interpretation [...] code = ALKP) 80 Unit/L 45-117 N [id number] 07:45:00* Test Item Value Reference Range Interpretation Comments LIPASE (test code = LIP) 93 Unit/L 114-286 L CBC W/AUTO [id number] 07:29:00* Test Item Value Reference Range Interpretation [...] = MDIFF) NO DIFF/SCN CRITERIA GLYCOSYLATED HEMOGLOBIN [id number] 13:11:00* Test Item Value Reference Range Interpretation Comments GLYCOSYLATED HEMOGLOBIN (HA1C) (test code = GLYHGB) 5.4 % A1C 4. 2-6.3 N ESTIMATED AVERAGE GLUCOSE (test code = EAG) 108 MG/DLest COMPREHENSIVE METABOLIC [id number] 13:06:00* Test Item Value Reference Range Interpretation [...] = LDL/HDL) 2.74 Ratio 1.48-3.22 Avg N [id number] 13:06:00* Test Item Value Reference Range Interpretation Comments PHOSPHOROUS (test code = PHOS) 3.6 MG/DL 2.5-4.9 N [id number] 13:06:00* Test Item Value Reference Range Interpretation Comments LIPASE (test code = LIP) 160 Unit/L 114-286 N [id number] 13:06:00* Test Item Value Reference Range Interpretation Comments MAGNESIUM (test code = MAG) 1.7 MG/DL 1.8-2.4 L CBC W/AUTO [id number] 12:54:00* Test Item Value Reference Range Interpretation [...] NO DIFF/SCN CRITERIA - CT ABD PELVIS [id number] 09:17:00 Patient Name: ANGELA ESPINOSA Unit No: [id number] EXAMS: CPT CODE: [id number] CT ABD PELVIS W/CONT 36577 CT OF THE ABDOMEN AND PELVIS PERFORMED [...] helpful. 2. Prominence of the urinary bladder [facility] NAME: OPAL ESPINOSAJELICA Radiolo gy Department PHYS: Freddy Gandhi [address] : 1975 AGE: 43 SEX: F [place], [place] [address] LOC: JessicaERS PHONE #: [phone] EXAM DATE: 12/25/2018 STATUS: DEP ER FAX #: [phone] RAD NO: Page 1 Signed Report 1 Patient Name: OPAL ESPINOSAJELICA Unit No: [id number] EXAMS: CPT CODE: [id number] CT ABD PELVIS W/CONT 54126 <Continued> 3. Status post cholecystectomy, hysterectomy and [...] RT CTDI: 21.55 DLP: 1247.13 Trnscrbd D/ (6632) Emiliano [facility] NAME: ANGELA ESPINOSA Radiology Department PHYS: Freddy Gandhi [address] : 1975 AGE: 43 SEX: F [place] [address] LOC: [employer] PHONE #: [phone] EXAM DATE: 12/25/2018 STATUS: DEP ER FAX #: [phone] RAD NO: Page 2 Signed Report 1 Patient Name: ANGELA ESPINOSA Unit No: [id number] EXAMS: CPT CODE: [id number] CT ABD PELVIS W/CONT 64957 <Continued> Orig Print D/T: S: 12/25/2018 (0921) [facility] NAME: JESÚSANGELA Radiology Department PHYS: Freddy Gandhi [address] : 1975 AGE: 43 SEX: F [place] [address] LOC: [employer] PHONE #: [phone] EXAM DATE: 12/25/2018 STATUS: DEP ER FAX #: [phone] RAD NO: Page 3 Signed Report 1 [...] (DESIRABLE) 130-159 (BORDERLINE) >=160 (HIGH) COMPREHENSIVE METABOLIC [id number] 07:10:00* Test Item Value Reference Range Interpretation [...] code = ALKP) 96 units/L 46-116 N [id number] 07:10:00* Test Item Value Reference Range Interpretation Comments AMYLASE (test code = JANIE) 137 units/L 30-110 H [id number] 07:10:00* Test Item Value Reference Range Interpretation Comments LIPASE (test code = LIP) 1154 units/L 73-393 H UA RFLX MICR CULT IF [id number] 06:32:00* Test Item Value Reference Range Interpretation [...] SEEN Indication for culture: Suprapubic PainUR HCG [id number] 06:32:00* Test Item Value Reference Range Interpretation Comments UR HCG QUAL (test code = HCGQLU) NEGATIVE 1. Very dilute urine specimens, as indicated by a lowspecific gravity, may not contain account retention representative levels ofhCG. 2. False negative results may occur when the levels of hCGare below the sensitivity level of the test. If is still suspected, a first morningurine specimen should be collected 48 hours later andtested. Indication for culture: Suprapubic PainCBC W/AUTO [id number] 06:28:00* Test Item Value Reference Range Interpretation [...] PLTMR) NORMAL YOANA L DRUGS OF ABUSE [id number] 06:28:00* Test Item Value Reference Range Interpretation [...] Y.BY MISAEL 12/25/18 0627. DETECTION CUT OFF: 150 ng/mL UR OPIATES QUAL (test code = OPIAQLU) NEGATIVE NEGATIVE DETECTION CUT OFF: 100 ng/mL UR PHENCYCLIDINE (PCP) (test code = PHENCU) NEGATIVE NEGATIVE DETECTION CUT OFF: 25 ng/mL UA RFLX MICR CULT IF [id number] 06:16:00* Test Item Value Reference Range Interpretation [...] RARE-FEW Indication for culture: Suprapubic PainUR HCG [id number] 06:16:00* Test Item Value Reference Range Interpretation Comments UR HCG QUAL (test code = HCGQLU) NEGATIVE 1. Very dilute urine specimens, as indicated by a lowspecific gravity, may not contain account retention representative levels ofhCG. 2. False negative results may occur when the levels of hCGare below the sensitivity level of the test. If is still suspected, a first morningurine specimen should be collected 48 hours later andtested. Indication for culture: Suprapubic Pain- CT ABD PELVIS W/O [id number] 09:33:00 Name: JESÚSREJIA [facility] : 1975 Age/S: 43 / F [address] Unit #: [id number] Loc: [place] [address] Phys: Hesham Acuña MD Acct: [id number] Dis Date: Status: REG ER PHONE #: [phone] Exam Date: 12/08/2018901 FAX #: [phone] Reason: right abdominal pain, recent procedure EXAMS: CPT CODE: [id number] CT ABD PELVIS W/O CONT 29119 TECHNIQUE: - CT ABD PELVIS W/O CONT [...] 1 Signed Report (CONTINUED) Name: ANGELA ESPINOSA [facility] : 1975 Age/S: 43 / F [address] [facility] Unit #: [id number] Loc: [place] [address] Phys: Hesham Acuña MD Acct: [id number] Dis Date: Status: REG ER PHONE #: [phone] Exam Date: 12/08/2018901 FAX #: [phone] Reason: right abdominal pain, recent procedure EXAMS: CPT CODE: [id number] CT ABD PELVIS W/O CONT 91750 <Continued> Retroperitoneum and mesentery: No significant lymphadenopathy. [...] normal. at 0933 Reported and signed by: Jraek Gold M.D. CC: Hesham Acuña MD; Vicente [...] CA) 9.8 mg/dL 8.5-10.1 N HEPATIC FUNCTION [id number] 09:27:00* Test Item Value Reference Range Interpretation [...] reference range due to change in reagent. [id number] 09:27:00* Test Item Value Reference Range Interpretation Comments LIPASE (test code = LIP) 187 U/L 73.0-393.0 N BASIC METABOLIC CDMTO0731-46-56 09:08:00* Test Item Value Reference Range Interpretation [...] code = CA) mg/dL 8.5-10.1 HEPATIC FUNCTION [id number] 09:08:00* Test Item Value Reference Range Interpretation [...] TOTAL (test code = ALKP) IUnit/L 45-117 DYBZAF6348-04-63 09:08:00* Test Item Value Reference Range Interpretation Comments LIPASE (test code = LIP) U/L 73.0-393.0 URINALYSIS RHWHIIZY1004-28-69 08:54:00* Test Item Value Reference Range Interpretation [...] HPF NONE Urine Source? Clean CatchUR HCG QWOP5454-32-35 08:54:00* Test Item Value Reference Range Interpretation Comments UR HCG QUAL (test code = HCGQLU) NEGATIVE This HCGQL test is NOT applicable for MALE patients.Check with nurse about probable order error.If Tumor Marker Test needed, nurse should order test "HCGTU"(Test #550.90402) Urine Source? Clean CatchURINALYSIS [id number] 08:54:00* Test Item Value Reference Range Interpretation [...] #/LPF FEW Urine Source? Clean CatchUR HCG [id number] 08:54:00* Test Item Value Reference Range Interpretation Comments UR HCG QUAL (test code = HCGQLU) NEGATIVE This HCGQL test is NOT applicable for MALE patients.Check with nurse about probable order error.If Tumor Marker Test needed, nurse should order test "HCGTU"(Test #550.59304) Urine Source? Clean CatchCBC W/O DKYA2426-11-50 08:39:00* Test Item Value Reference Range Interpretation [...] MPV) 9.2 fL 6.7-11.0 N CBC W/O NWKO2704-08-22 08:38:00* Test Item Value Reference Range Interpretation [...] code = MPV) fL 6.7-11.0 KIDNEY STONE WSVCOTTE2573-90-20 14:11:00* Test Item Value Reference Range Interpretation [...] and calcium phosphate crystals. Test performed at: [address] [address] STONE ANALYSIS (test code = STONE) () Photograph will follow under separate cover. WEIGHT OF STONE (test code = STONEWT) <1.0 mg () Test performed at: [place] [address] SPECIMEN COMMENTS: RENAL STONES COLLECTED BY TO PHLEBOTO MIST: IN SURGERYKIDNEY STONE [id number] 14:07:00* Test Item Value Reference Range Interpretation [...] Crystals: Calcium oxalate dihydrate Test performed at: [place] [address] STONE ANALYSIS (test code = STONE) () Photograph will follow under separate cover. WEIGHT OF STONE (test code = STONEWT) 7.0 mg () Test performed at: [place] [address] KIDNEY STONE [id number] 10:14:00* Test Item Value Reference Range Interpretation Comments KIDNEY STONE ANALYSIS (test code = STONEK) 3x2x1 mm () SOURCE OF STONE (test code = STONESRC) STONE ANALYSIS COMMENT (test code = STONECOM) NIDUS STONE ANALYSIS (test code = STONE) () Photograph will follow under separate cover. WEIGHT OF STONE (test code = STONEWT) 7.0 mg () Test performed at: [place] [address] KIDNEY STONE IPRQPZIB0689-71-76 08:18:00* Test Item Value Reference Range Interpretation Comments KIDNEY STONE ANALYSIS (test code = STONEK) mm () Specimen received as fragments. SOURCE OF STONE (test code = STONESRC) STONE ANALYSIS COMMENT (test code = STONECOM) NIDUS STONE ANALYSIS (test code = STONE) () Photograph will follow under separate cover. WEIGHT OF STONE (test code = STONEWT) <1.0 mg () Test performed at: [place] [address] SPECIMEN COMMENTS: RENAL STONES COLLECTED BY TO PHLEBOTO MIST: IN SURGERYCT ABDOMEN/PELVIS [id number] 20:53:00 [place] [id number] [place] [id number] Patient Name: ANGELA ESPINOSA MR #: [id number] : 1975 Age/Sex: 42/F Req #: [id number] Adm Physician: GLENN TILLEY MD Ordered by: JOHN MALONEY MD Report #: [id number] Location: MED/SURG Room/Bed: [facility] Procedure: [id number] CT/CT ABDOMEN/PELVIS W Exam Date: Exam Time: [...] on 11/11/182113 COPY TO: JOHN MALONEY MD [id number] 14:43:00 RUN DATE: 11/11/18 [facility] PAGE 1 RUN TIME: 1444 Specimen Inqui ry RUN USER: INTERFACE PATIENT: ANGELA ESPINOSA ACCT #: [id number] LOC: [facility] U #: [id number] AGE/SX: 42/F ROOM: RE11/09/18[facility] DR: Sebastian Riojas MD : [birth year] BED: DIS: [place] [facility] [place] SPEC #: [id number] RECD: 11/09/18 STATUS: [place] [facility] #: [id number] MICHELLE: 11/09/1845 [facility] DR: Sebastian Riojas MD ENTERED: 11/09/18 SP TYPE: CALCULI OTHR DR: Vicente Bui MD ORDERED: GROSS COPIES TO: Sebastian Riojas MD [address] [facility] [place] [address] Vicente Bui MD [address] [place] [id number] PROCEDURES: GROSS (-1111) TISSUES: 1. LEFT KIDNEY - STONE 2. RIGHT KIDNEY - STO NE CLINICAL HISTORY COLLECTION DATE: 11/09/18 RENAL STONE FINAL DIAGNOSIS Left renal stone, removal: CALCULOUS MATERIAL (GROSS IDENTIFICATION) SUBMITTED FOR CHEMICAL ANALYSIS Right renal st one, removal CALCULOUS MATERIAL (GROSS IDENTIFICATION) SUBMITTED F OR CHEMICAL ANALYSIS RRB/sm D [phone] CONTINUED ON NEXT PAGE RUN DATE: 11/11/18 [facility] PAGE 2 RUN TIME: 1444 Specimen Inquiry RUN USER: INTERFACE SPEC #: [id number] PATIENT: ANGELA ESPINOSA #[id number] (Leila nued) MACROSCOPIC Specimen (1) is received [...] submitted for chemical analysis. GROSS PERFORMED AT [facility] [address] [place] [phone] Signed SIGNATURE ON FILE Alin Tian MD 11/11/18 1443 END OF REPORT Sodium Lrbaa7446-32-87 12:09:00 * Test Item Value Reference Range Interpretation Comments Sodium Level (test code = 2951-2) 134 136-145 L [facility]Pot[facility] Siqoy4632-57-67 12:09:00* Test Item Value Reference Range Interpretation Comments Potassium Level (test code = 2823-3) 3.9 3.5-5.1 [facility] CenterChloride Jsajl7941-02-55 12:09:00* Test Item Value Reference Range Interpretation Comments Chloride Level (test code = 2075-0) 106 98-107 [facility] CenterCarbon Dioxide Pulje0962-04-61 12:09:00* Test Item Value Reference Range Interpretation Comments Carbon Dioxide Level (test code = 2028-9) 22 22-29 [facility] CenterAnion Azy8947-91-85 12:09:00* Test Item Value Reference Range Interpretation Comments Anion Gap (test code = 75169-7) 9.9 8-16 [facility] CenterBlood Urea Laegihtt1082-07-23 12:09:00* Test Item Value Reference Range Interpretation Comments Blood Urea Nitrogen (test code = 3094-0) 9 7-26 [facility] CenterCreatinine2019-06-13 12:09:00* Test Item Value Reference Range Interpretation Comments Creatinine (test code = 2160-0) 0.84 0.57-1.11 [facility] CenterBUN/Creatinine Glsdn6746-32-29 12:09:00* Test Item Value Reference Range Interpretation Comments BUN/Creatinine Ratio (test code = 3097-3) 11 6-25 [facility] CenterEstimat Glomerular Filtration Rate 2018-11-11 12:09:00* Test Item Value Reference Range Interpretation Comments Estimat Glomerular Filtration Rate (test code = 179178308) > 60 >60 Ranges were taken from the National Kidney Disease Education Program and the [facility] literature.Reference ranges:60 or greater: Imgoeh16-98 ( for 3 consecutive months): Chronic kidney disease 15 or less: Kidney failureSaint Camillus Medical CenterGlucose Rxuel3889-29-32 12:09:00* Test Item Value Reference Range Interpretation Comments Glucose Level (test code = KKF1791) 89 74-118 [facility] CenterCalcium Pfjbz6003-54-85 12:09:00* Test Item Value Reference Range Interpretation Comments Calcium Level (test code = 42345-8) 8.3 8.4-10.2 L [facility] CenterWhite Blood Nxxdo5943-74-26 11:01:00* Test Item Value Reference Range Interpretation Comments White Blood Count (test code = 6690-2) 5.53 4.8-10.8 [facility] CenterRed Blood Tzzsx5586-08-17 11:01:00* Test Item Value Reference Range Interpretation Comments Red Blood Count (test code = 789-8) 3.97 3.6-5.1 [facility] CenterHemoglobin2019-06-13 11:01:00* Test Item Value Reference Range Interpretation Comments Hemoglobin (test code = 34762-6) 11.7 12.0-16.0 L [facility] CenterHematocrit2019-06-13 11:01:00* Test Item Value Reference Range Interpretation Comments Hematocrit (test code = 4544-3) 35.1 34.2-44.1 [facility] CenterMean Corpuscular Pvpbsz3843-60-66 11:01:00* Test Item Value Reference Range Interpretation Comments Mean Corpuscular Volume (test code = 787-2) 88.4 81-99 [facility] CenterMean Corpuscular Aouyfkctyp9711-03-15 11:01:00* Test Item Value Reference Range Interpretation Comments Mean Corpuscular Hemoglobin (test code = 785-6) 29.5 28-32 [facility] CenterMean Corpuscular Hemoglobin Concent 2018-11-11 11:01:00* Test Item Value Reference Range Interpretation Comments Mean Corpuscular Hemoglobin Concent (test code = 786-4) 33.3 31-35 [facility] CenterRed Cell Distribution Bssub3312-37-73 11:01:00* Test Item Value Reference Range Interpretation Comments Red Cell Distribution Width (test code = 71564-6) 13.5 11.7 -14.4 [facility] CenterPlatelet Xtkel2760-37-50 11:01:00* Test Item Value Reference Range Interpretation Comments Platelet Count (test code = 777-3) 205 140-360 [facility] CenterNeutrophils (%) (Auto)2018-11-11 11:01:00 * Test Item Value Reference Range Interpretation Comments Neutrophils (%) (Auto) (test code = 86990-9) 49.1 38.7-80.0 [facility] CenterLymphocytes (%) (Auto)2018-11-11 11:01:00 * Test Item Value Reference Range Interpretation Comments Lymphocytes (%) (Auto) (test code = 736-9) 39.6 18.0-39.1 H [facility] CenterMonocytes (%) (Auto)2018-11-11 11:01:00* Test Item Value Reference Range Interpretation Comments Monocytes (%) (Auto) (test code = 5905-5) 8.0 4.4-11.3 [facility] CenterEosinophils (%) (Auto)2018-11-11 11:01:00 * Test Item Value Reference Range Interpretation Comments Eosinophils (%) (Auto) (test code = 713-8) 2.4 0.0-6.0 [facility] CenterBasophils (%) (Auto)2018-11-11 11:01:00* Test Item Value Reference Range Interpretation Comments Basophils (%) (Auto) (test code = 706-2) 0.9 0.0-1.0 [facility] CenterIM GRANULOCYTES %2018-11-11 11:01:00* Test Item Value Reference Range Interpretation Comments IM GRANULOCYTES % (test code = IM GRANULOCYTES %) 0.0 0.0- 1.0 [facility] CenterNeutrophils # (Auto)2018-11-11 11:01:00* Test Item Value Reference Range Interpretation Comments Neutrophils # (Auto) (test code = 751-8) 2.7 2.1-6.9 [facility] CenterLymphocytes # (Auto)2018-11-11 11:01:00* Test Item Value Reference Range Interpretation Comments Lymphocytes # (Auto) (test code = 34270-1) 2.2 1.0-3.2 [facility] CenterMonocytes # (Auto)2018-11-11 11:01:00* Test Item Value Reference Range Interpretation Comments Monocytes # (Auto) (test code = 742-7) 0.4 0.2-0.8 [facility] CenterEosinophils # (Auto)2018-11-11 11:01:00* Test Item Value Reference Range Interpretation Comments Eosinophils # (Auto) (test code = 711-2) 0.1 0.0-0.4 [facility] CenterBasophils # (Auto)2018-11-11 11:01:00* Test Item Value Reference Range Interpretation Comments Basophils # (Auto) (test code = 704-7) 0.1 0.0-0.1 [facility] CenterAbsolute Immature Granulocyte (auto 2018-11-11 11:01:00* Test Item Value Reference Range Interpretation Comments Absolute Immature Granulocyte (auto (alexa t code = Absolute Immature Granulocyte (auto) 0 0-0.1 [facility] CenterHemoglobin A1c Zqnwiqk6265-91-35 07:48:00 * Test Item Value Reference Range Interpretation Comments Hemoglobin A1c Percent (test code = Hemoglobin A1c Percent) 5.3 4.0-7.0 [facility] CenterHemoglobin A1c Xvrelzi7151-59-32 07:48:00 * Test Item Value Reference Range Interpretation Comments Hemoglobin A1c Percent (test code = Hemoglobin A1c Percent) 5.3 4.0-7.0 [facility] CenterHemoglobin A1c Nedbrnq1691-36-02 07:48:00 * Test Item Value Reference Range Interpretation Comments Hemoglobin A1c Percent (test code = Hemoglobin A1c Percent) 5.3 4.0-7.0 [facility] CenterHemoglobin A1c Cbhgdjs3258-47-92 07:48:00 * Test Item Value Reference Range Interpretation Comments Hemoglobin A1c Percent (test code = Hemoglobin A1c Percent) 5.3 4.0-7.0 [facility] CenterHemoglobin A1c Pfzfvgk6167-56-28 07:48:00 * Test Item Value Reference Range Interpretation Comments Hemoglobin A1c Percent (test code = Hemoglobin A1c Percent) 5.3 4.0-7.0 [facility] CenterHemoglobin A1c Kwipiyi2734-61-67 07:48:00 * Test Item Value Reference Range Interpretation Comments Hemoglobin A1c Percent (test code = Hemoglobin A1c Percent) 5.3 4.0-7.0 [facility] CenterTriglycerides Prjgc8524-84-80 07:26:00* Test Item Value Reference Range Interpretation Comments Triglycerides Level (test code = 2571-8) 122 0-149 [facility] CenterCholesterol Mnbvb0558-85-00 07:26:00* Test Item Value Reference Range Interpretation Comments Cholesterol Level (test code = 2093-3) 189 0-199 Less than 200 mg/dL Low Jfyo335 - 239 mg/dL Borderline Lbcw062 m g/dl and greater High Risk [facility] CenterLDL Wowzbtmknvh6040-63-29 07:26:00* Test Item Value Reference Range Interpretation Comments LDL Cholesterol (test code = 2089-1) 108 60-130 [facility] CenterHDL Osfdketqwsa7513-32-23 07:26:00* Test Item Value Reference Range Interpretation Comments HDL Cholesterol (test code = 2085-9) 57 40-60 [facility] CenterCholesterol/HDL Uekfl3350-34-92 07:26:00 * Test Item Value Reference Range Interpretation Comments Cholesterol/HDL Ratio (test code = 9830-1) 3.3 3.0-3.6 [facility] CenterTriglycerides Xclix9765-52-42 07:26:00* Test Item Value Reference Range Interpretation Comments Triglycerides Level (test code = 2571-8) 122 0-149 [facility] CenterCholesterol Yyfha0887-31-16 07:26:00* Test Item Value Reference Range Interpretation Comments Cholesterol Level (test code = 2093-3) 189 0-199 Less than 200 mg/dL Low Tulo003 - 239 mg/dL Borderline Jovu752 m g/dl and greater High Risk [facility] Wfuzwvddikt7095-42-73 07:26:00* Test Item Value Reference Range Interpretation Comments LDL Cholesterol (test code = 2089-1) 108 60-130 [facility] Lhensxlmxob3346-33-44 07:26:00* Test Item Value Reference Range Interpretation Comments HDL Cholesterol (test code = 2085-9) 57 40-60 [facility] CenterCholesterol/HDL Vecsu7554-63-41 07:26:00 * Test Item Value Reference Range Interpretation Comments Cholesterol/HDL Ratio (test code = 9830-1) 3.3 3.0-3.6 [facility] CenterTriglycerides Ailce1154-28-16 07:26:00* Test Item Value Reference Range Interpretation Comments Triglycerides Level (test code = 2571-8) 122 0-149 [facility] CenterCholesterol Auxkt0687-97-17 07:26:00* Test Item Value Reference Range Interpretation Comments Cholesterol Level (test code = 2093-3) 189 0-199 Less than 200 mg/dL Low Ytex772 - 239 mg/dL Borderline Rtaj785 m g/dl and greater High Risk [facility] CenterLDL Mtzmlnifjoj2456-91-42 07:26:00* Test Item Value Reference Range Interpretation Comments LDL Cholesterol (test code = 2089-1) 108 60-130 [facility] Ectitvjaewa0433-34-14 07:26:00* Test Item Value Reference Range Interpretation Comments HDL Cholesterol (test code = 2085-9) 57 40-60 [facility] CenterCholesterol/HDL Zacqp5044-60-86 07:26:00 * Test Item Value Reference Range Interpretation Comments Cholesterol/HDL Ratio (test code = 9830-1) 3.3 3.0-3.6 [facility] CenterTriglycerides Zzcej8954-88-73 07:26:00* Test Item Value Reference Range Interpretation Comments Triglycerides Level (test code = 2571-8) 122 0-149 [facility] CenterCholesterol Xrklf3137-05-47 07:26:00* Test Item Value Reference Range Interpretation Comments Cholesterol Level (test code = 2093-3) 189 0-199 Less than 200 mg/dL Low Qigd555 - 239 mg/dL Borderline Dqjw963 m g/dl and greater High Risk [facility] CenterLDL Aaanhgyffoe8324-17-19 07:26:00* Test Item Value Reference Range Interpretation Comments LDL Cholesterol (test code = 2089-1) 108 60-130 [facility] CenterHDL Aqkqzboayry6351-17-51 07:26:00* Test Item Value Reference Range Interpretation Comments HDL Cholesterol (test code = 2085-9) 57 40-60 [facility] CenterCholesterol/HDL Ctjuv8165-63-55 07:26:00 * Test Item Value Reference Range Interpretation Comments Cholesterol/HDL Ratio (test code = 9830-1) 3.3 3.0-3.6 [facility] CenterTriglycerides Cegmo4300-94-39 07:26:00* Test Item Value Reference Range Interpretation Comments Triglycerides Level (test code = 2571-8) 122 0-149 [facility] CenterCholesterol Nwwam9301-50-95 07:26:00* Test Item Value Reference Range Interpretation Comments Cholesterol Level (test code = 2093-3) 189 0-199 Less than 200 mg/dL Low Ihzo134 - 239 mg/dL Borderline Oygz280 m g/dl and greater High Risk [facility] CenterLDL Sztufjcfgmz9324-20-14 07:26:00* Test Item Value Reference Range Interpretation Comments LDL Cholesterol (test code = 2089-1) 108 60-130 [facility] CenterHDL Fllwvkazcgt1098-95-15 07:26:00* Test Item Value Reference Range Interpretation Comments HDL Cholesterol (test code = 2085-9) 57 40-60 [facility] CenterCholesterol/HDL Fxxuj1400-22-69 07:26:00 * Test Item Value Reference Range Interpretation Comments Cholesterol/HDL Ratio (test code = 9830-1) 3.3 3.0-3.6 [facility] CenterTriglycerides Omuol3678-58-09 07:26:00* Test Item Value Reference Range Interpretation Comments Triglycerides Level (test code = 2571-8) 122 0-149 [facility] CenterCholesterol Ndmjg3119-92-61 07:26:00* Test Item Value Reference Range Interpretation Comments Cholesterol Level (test code = 2093-3) 189 0-199 Less than 200 mg/dL Low Sirj954 - 239 mg/dL Borderline Bmyj016 m g/dl and greater High Risk [facility] CenterLDL Pirjupmpejz0299-57-82 07:26:00* Test Item Value Reference Range Interpretation Comments LDL Cholesterol (test code = 2089-1) 108 60-130 [facility] Mfzxjgpztts1707-20-12 07:26:00* Test Item Value Reference Range Interpretation Comments HDL Cholesterol (test code = 2085-9) 57 40-60 [facility] CenterCholesterol/HDL Hrdjz4069-64-29 07:26:00 * Test Item Value Reference Range Interpretation Comments Cholesterol/HDL Ratio (test code = 9830-1) 3.3 3.0-3.6 [facility] CenterMagnesium Xzgwd3540-41-00 23:30:00* Test Item Value Reference Range Interpretation Comments Magnesium Level (test code = 68725-8) 2.1 1.3-2.1 [facility] CenterTotal Anidlnrwp8529-03-84 23:30:00* Test Item Value Reference Range Interpretation Comments Total Bilirubin (test code = 1975-2) 0.3 0.2-1.2 [facility] CenterAspartate Amino Transf (AST/SGOT) 2018-11-09 23:30:00* Test Item Value Reference Range Interpretation Comments Aspartate Amino Transf (AST/SGOT) (test code = Aspartate Amino Transf (AST/SGOT)) 79 5-34 H [facility] CenterAlanine Aminotransferase (ALT/SGPT) 2018-11-09 23:30:00* Test Item Value Reference Range Interpretation Comments Alanine Aminotransferase (ALT/SGPT) (test code = 1742-6) 111 0-55 H [facility] CenterTotal Jfakfdk4352-59-44 23:30:00* Test Item Value Reference Range Interpretation Comments Total Protein (test code = 2885-2) 6.6 6.5-8.1 [facility] CenterAlbumin2019-06-11 23:30:00* Test Item Value Reference Range Interpretation Comments Albumin (test code = 1751-7) 3.5 3.5-5.0 [facility] CenterGlobulin2019-06-11 23:30:00* Test Item Value Reference Range Interpretation Comments Globulin (test code = 73795-8) 3.1 2.3-3.5 [facility] CenterAlbumin/Globulin Pieua1220-95-01 23:30:00 * Test Item Value Reference Range Interpretation Comments Albumin/Globulin Ratio (test code = 1759-0) 1.1 0.8-2.0 [facility] CenterAlkaline Dqbzwciggqp8997-92-48 23:30:00* Test Item Value Reference Range Interpretation Comments Alkaline Phosphatase (test code = 6768-6) 104 40-150 [facility] CenterAmylase Lfrhk9716-73-30 23:30:00* Test Item Value Reference Range Interpretation Comments Amylase Level (test code = 1798-8) 57 25-125 [facility] CenterLipase2019-06-11 23:30:00* Test Item Value Reference Range Interpretation Comments Lipase (test code = 3040-3) 26 8-78 [facility] CenterMagnesium Raeqc6740-70-80 23:30:00* Test Item Value Reference Range Interpretation Comments Magnesium Level (test code = 07249-1) 2.1 1.3-2.1 [facility] CenterAmylase Kwyfq7462-36-00 23:30:00* Test Item Value Reference Range Interpretation Comments Amylase Level (test code = 1798-8) 57 25-125 [facility] Upydo5515-35-81 23:30:00* Test Item Value Reference Range Interpretation Comments Magnesium Level (test code = 93543-8) 2.1 1.3-2.1 [facility] CenterAmylase Usany9737-34-12 23:30:00* Test Item Value Reference Range Interpretation Comments Amylase Level (test code = 1798-8) 57 25-125 [facility] CenterMagnesium Kcldo1914-52-43 23:30:00* Test Item Value Reference Range Interpretation Comments Magnesium Level (test code = 29574-5) 2.1 1.3-2.1 [facility] CenterAmylase Thipu5528-60-65 23:30:00* Test Item Value Reference Range Interpretation Comments Amylase Level (test code = 1798-8) 57 25-125 [facility] CenterMagnesium Ahapq3886-53-45 23:30:00* Test Item Value Reference Range Interpretation Comments Magnesium Level (test code = 89467-1) 2.1 1.3-2.1 [facility] CenterAmylase Lcmvl0593-11-59 23:30:00* Test Item Value Reference Range Interpretation Comments Amylase Level (test code = 1798-8) 57 25-125 [facility] Rerqa1137-28-92 23:30:00* Test Item Value Reference Range Interpretation Comments Magnesium Level (test code = 04231-2) 2.1 1.3-2.1 [facility] CenterAmylase Zkbyq4152-65-41 23:30:00* Test Item Value Reference Range Interpretation Comments Amylase Level (test code = 1798-8) 57 25-125 [facility] CenterUrine SNN3115-47-53 23:03:00* Test Item Value Reference Range Interpretation Comments Urine WBC (test code = 5821-4) 21-50 0-5 H [facility] CenterUrine EYH4137-57-58 23:03:00* Test Item Value Reference Range Interpretation Comments Urine RBC (test code = 35821-8) >50 0-5 H [facility] CenterUrine Ggkyxtsl2367-07-96 23:03:00* Test Item Value Reference Range Interpretation Comments Urine Bacteria (test code = 88630-1) FEW NONE [facility] CenterUrine Epithelial Ubjzl3124-99-93 23:03:00 * Test Item Value Reference Range Interpretation Comments Urine Epithelial Cells (test code = 53354-5) FEW NONE [facility] CenterProthrombin Mrvq3787-29-13 22:55:00* Test Item Value Reference Range Interpretation Comments Prothrombin Time (test code = 5902-2) 12.7 11.9-14.5 [facility] CenterProthromb Time International Ratio 2018-11-09 22:55:00* Test Item Value Reference Range Interpretation Comments Prothromb Time International Ratio (test code = 6301-6) 0.91 Oral Anticoagulant Therapy INR Values:1. Low Intensity Therapy 1.5 - 2.02 . Moderate Intensity Therapy 2.0 - 3.03. High Intensity Therapy(1) 2.5 - 3. 54. High Intensity Therapy(2) 3.0 - 4.05. Panic Value INR > 5.0 [facility] CenterActivated Partial Thromboplast Time 2018-11-09 22:55:00* Test Item Value Reference Range Interpretation Comments Activated Partial Thromboplast Time (test code = 51222-3) 29.2 23.8-35.5 [facility] CenterUrine Uliqh8163-48-58 22:55:00* Test Item Value Reference Range Interpretation Comments Urine Color (test code = 5778-6) BROWN YELLOW H [facility] CenterUrine Pquovpg8693-66-32 22:55:00* Test Item Value Reference Range Interpretation Comments Urine Clarity (test code = 52151-1) CLOUDY CLEAR H [facility] CenterUrine Specific Czskxjz9292-75-92 22:55:00 * Test Item Value Reference Range Interpretation Comments Urine Specific [place] (test code = 5811-5) 1.020 1.010-1.02 5 [facility] [id number] 22:55:00* Test Item Value Reference Range Interpretation Comments Urine pH (test code = 18062-8) 6.5 5-7 [facility] Leukocyte Dengfgck4671-23-51 22:55:00* Test Item Value Reference Range Interpretation Comments Urine Leukocyte Esterase (test code = 67956-7) TRACE NEGATIV E H [facility] Gtyccuh8497-08-11 22:55:00* Test Item Value Reference Range Interpretation Comments Urine Nitrite (test code = 12727-1) NEGATIVE NEGATIVE [facility] Sipotjd4754-98-70 22:55:00* Test Item Value Reference Range Interpretation Comments Urine Protein (test code = 89358-6) 2+ NEGATIVE H [facility] Glucose (UA)2018-11-09 22:55:00* Test Item Value Reference Range Interpretation Comments Urine Glucose (UA) (test code = 85814-5) NEGATIVE NEGATIVE [facility] Ptembnd4463-54-24 22:55:00* Test Item Value Reference Range Interpretation Comments Urine Ketones (test code = 11937-2) NEGATIVE NEGATIVE [facility] Xiczsztalwsi4091-42-19 22:55:00* Test Item Value Reference Range Interpretation Comments Urine Urobilinogen (test code = 94587-8) 0.2 0.2-1 [facility] Odbxomzvp1303-06-50 22:55:00* Test Item Value Reference Range Interpretation Comments Urine Bilirubin (test code = 1977-8) SMALL NEGATIVE [facility] Ywlsz7058-52-88 22:55:00* Test Item Value Reference Range Interpretation Comments Urine Blood (test code = 57811-3) 3+ NEGATIVE [facility]Proth[facility]bin Zflx3840-08-31 22:55:00* Test Item Value Reference Range Interpretation Comments Prothrombin Time (test code = 5902-2) 12.7 11.9-14.5 [facility]Prothromb Time International Ratio 2018-11-09 22:55:00* Test Item Value Reference Range Interpretation Comments Prothromb Time International Ratio (test code = 6301-6) 0.91 Oral Anticoagulant Therapy INR Values:1. Low Intensity Therapy 1.5 - 2.02 . Moderate Intensity Therapy 2.0 - 3.03. High Intensity Therapy(1) 2.5 - 3. 54. High Intensity Therapy(2) 3.0 - 4.05. Panic Value INR > 5.0 [facility] Center[facility] Partial Thromboplast Time 2018-11-09 22:55:00* Test Item Value Reference Range Interpretation Comments Activated Partial Thromboplast Time (test code = 87470-4) 29.2 23.8-35.5 [facility]th[facility] Rnmy3693-59-92 22:55:00* Test Item Value Reference Range Interpretation Comments Prothrombin Time (test code = 5902-2) 12.7 11.9-14.5 [facility] CenterProth[facility] Time International Ratio 2018-11-09 22:55:00* Test Item Value Reference Range Interpretation Comments Prothromb Time International Ratio (test code = 6301-6) 0.91 Oral Anticoagulant Therapy INR Values:1. Low Intensity Therapy 1.5 - 2.02 . Moderate Intensity Therapy 2.0 - 3.03. High Intensity Therapy(1) 2.5 - 3. 54. High Intensity Therapy(2) 3.0 - 4.05. Panic Value INR > 5.0 [facility] Partial Thromboplast Time 2018-11-09 22:55:00* Test Item Value Reference Range Interpretation Comments Activated Partial Thromboplast Time (test code = 55032-1) 29.2 23.8-35.5 [facility]th[facility] Bdmq0138-48-74 22:55:00* Test Item Value Reference Range Interpretation Comments Prothrombin Time (test code = 5902-2) 12.7 11.9-14.5 [facility] CenterProth[facility] Time International Ratio 2018-11-09 22:55:00* Test Item Value Reference Range Interpretation Comments Prothromb Time International Ratio (test code = 6301-6) 0.91 Oral Anticoagulant Therapy INR Values:1. Low Intensity Therapy 1.5 - 2.02 . Moderate Intensity Therapy 2.0 - 3.03. High Intensity Therapy(1) 2.5 - 3. 54. High Intensity Therapy(2) 3.0 - 4.05. Panic Value INR > 5.0 [facility] Partial Thromboplast Time 2018-11-09 22:55:00* Test Item Value Reference Range Interpretation Comments Activated Partial Thromboplast Time (test code = 70036-0) 29.2 23.8-35.5 [facility]th[facility] Hodn6479-29-97 22:55:00* Test Item Value Reference Range Interpretation Comments Prothrombin Time (test code = 5902-2) 12.7 11.9-14.5 [facility]Proth[facility] Time International Ratio 2018-11-09 22:55:00* Test Item Value Reference Range Interpretation Comments Prothromb Time International Ratio (test code = 6301-6) 0.91 Oral Anticoagulant Therapy INR Values:1. Low Intensity Therapy 1.5 - 2.02 . Moderate Intensity Therapy 2.0 - 3.03. High Intensity Therapy(1) 2.5 - 3. 54. High Intensity Therapy(2) 3.0 - 4.05. Panic Value INR > 5.0 [facility] Partial Thromboplast Time 2018-11-09 22:55:00* Test Item Value Reference Range Interpretation Comments Activated Partial Thromboplast Time (test code = 04443-9) 29.2 23.8-35.5 [facility]th[facility] Jkix2198-31-97 22:55:00* Test Item Value Reference Range Interpretation Comments Prothrombin Time (test code = 5902-2) 12.7 11.9-14.5 [facility] CenterProth[facility] Time International Ratio 2018-11-09 22:55:00* Test Item Value Reference Range Interpretation Comments Prothromb Time International Ratio (test code = 6301-6) 0.91 Oral Anticoagulant Therapy INR Values:1. Low Intensity Therapy 1.5 - 2.02 . Moderate Intensity Therapy 2.0 - 3.03. High Intensity Therapy(1) 2.5 - 3. 54. High Intensity Therapy(2) 3.0 - 4.05. Panic Value INR > 5.[address] [facility] Th[facility]oplast Time 2018-11-09 22:55:00* Test Item Value Reference Range Interpretation Comments Activated Partial Thromboplast Time (test code = 64556-6) 29.2 23.8-35.5 [facility] TRANSVAGINAL NON [id number] 11:04:00 Name: ANGELA ESPINOSA [facility] : 1975 Age/S: 42 / F [address] [facility] Unit #: [id number] Loc: [place] [address] Phys: Hesham Acuña MD Acct: [id number] Dis Date: Status: REG ER PHONE #: [phone] Exam Date: 11/07/2018 1036 FAX #: [phone] Reason: RLQ PAIN EXAMS: CPT CODE: [id number] [place] [address] HISTORY: Right adnexal pain TECHNIQUE: Static grayscale [...] Orig Print D/T: S: 11/07/2018 (1110) Probe: [id number] PAGE 1 Signed Report - DUP AB/PEL/SC [id number] 11:04:00 Name: ANGELA ESPINOSA [facility] : 1975 Age/S: 42 / F [address] Unit #: [id number] Loc: [place] [address] Phys: Hesham Acuña MD Acct: [id number] Dis Date: Status: REG ER PHONE #: [phone] Exam Date: 11/07/2018 1036 FAX #: [phone] Reason: PELVIC PAIN EXAMS: CPT CODE: [id number] DUP AB/PEL/SC COMP 44740 HISTORY: Right adnexal pain TECHNIQUE: Static grayscale [...] MD; Vicente Bui MD Technologist: GILBERT LUCAS Trnakb Date/Time: 11/07/2018 (1104) SilasLDP1 Orig Print D/T: S: 11/07/2018 (0770) Probe: PAGE 1 Signed Report - US PELVIS NKKYXLLJ5358-77-75 11:04:00 Name: ANGELA ESPINOSA [facility] : 1975 Age/S: 42 / F [address] Unit #: [id number] Loc: [place] [address] Phys: Hesham Acuña MD Acct: [id number] Dis Date: Status: REG ER PHONE #: [phone] Exam Date: 11/07/2018 1036 FAX #: [phone] Reason: R adnexal pain EXAMS: CPT CODE: [id number] US PELVIS COMPLETE 82615 HISTORY: Right adnexal pain TECHNIQUE: Static grayscale [...] Pro be: PAGE 1 Signed Report URINALYSIS [id number] 09:22:00* Test Item Value Reference Range Interpretation [...] NONE A Urine Source? Clean CatchBASIC METABOLIC IAAGR2211-25-15 09:22:00* Test Item Value Reference Range Interpretation [...] CA) 8.6 mg/dL 8.5-10.1 N HEPATIC FUNCTION [id number] 09:22:00* Test Item Value Reference Range Interpretation [...] reference range due to change in reagent. [id number] 09:22:00* Test Item Value Reference Range Interpretation Comments LIPASE (test code = LIP) 125 U/L 73.0-393.0 N HCG SERUM WKGT6162-04-20 09:22:00* Test Item Value Reference Range Interpretation Comments HCG SERUM QUAL (test code = HCGQL) NEGATIVE NEGATIVE This HCGQL test is NOT applicable for MALE patients.Check with nurse about probable order error.If Tumor Marker Test needed, nurse should order test "HCGTU"(Test #550.95082) BASIC METABOLIC FMFUQ3245-88-50 09:13:00* Test Item Value Reference Range Interpretation [...] code = CA) mg/dL 8.5-10.1 HEPATIC FUNCTION XPCXB1116-54-59 09:13:00* Test Item Value Reference Range Interpretation [...] TOTAL (test code = ALKP) IUnit/L 45-117 VRLMEM5593-43-23 09:13:00* Test Item Value Reference Range Interpretation Comments LIPASE (test code = LIP) U/L 73.0-393.0 HCG SERUM YJGD1179-36-14 09:13:00* Test Item Value Reference Range Interpretation Comments HCG SERUM QUAL (test code = HCGQL) NEGATIVE NEGATIVE This HCGQL test is NOT applicable for MALE patients.Check with nurse about probable order error.If Tumor Marker Test needed, nurse should order test "HCGTU"(Test #550.19911) BASIC METABOLIC [id number] 09:13:00* Test Item Value Reference Range Interpretation [...] code = CA) mg/dL 8.5-10.1 HEPATIC FUNCTION EGGBC3385-84-84 09:13:00* Test Item Value Reference Range Interpretation [...] TOTAL (test code = ALKP) IUnit/L 45-117 QOFTIS9139-64-52 09:13:00* Test Item Value Reference Range Interpretation Comments LIPASE (test code = LIP) U/L 73.0-393.0 HCG SERUM SAXQ6792-74-18 09:13:00* Test Item Value Reference Range Interpretation Comments HCG SERUM QUAL (test code = HCGQL) NEGATIVE NEGATIVE This HCGQL test is NOT applicable for MALE patients.Check with nurse about probable order error.If Tumor Marker Test needed, nurse should order test "HCGTU"(Test #550.53945) CBC W/O [id number] 09:05:00* Test Item Value Reference Range Interpretation [...] MPV) 9.3 fL 6.7-11.0 N CBC W/O [id number] 09:03:00* Test Item Value Reference Range Interpretation [...] fL 6.7-11.0 - CT ABD PELVIS W/O [id number] 08:56:00 Name: ANGELA ESPINOSA [facility] : 1975 Age/S: 42 / F [address] [facility] Unit #: [id number] Loc: [place] [address] Phys: Hesham Acuña MD Acct: [id number] Dis Date: Status: REG ER PHONE #: [phone] Exam Date: 11/07/2018 0845 FAX #: [phone] Reason: RLQ pain EXAMS: CPT CODE: [id number] CT ABD PELVIS W/O CONT 60568 HISTORY: RLQ pain TECHNIQUE: 5mm axial CT [...] Signed Report (CONTINUED) Na me: ANGELA ESPINOSA [facility] : Age/S: 42 / F [address] [facility] Unit #: [id number] Loc: [place] [address] Phys: Cedric Acuña MD Acct: [id number] Dis Da te: Status: REG ER PHONE #: Exam Date: 11/07/2018 0845 FAX #: [phone] Reason: RLQ pain EXAMS: CPT CODE: [id number] CT ABD PELVIS W/O CONT 05240 <Continued> CC: Hesham Acuña MD; Vicente Bui MD Technologist:Gloria Micheal RT(R),CT CTDI: DLP: Trnscb Date/Time: 11/07/2018 (0856) t.DIONR.LDP1 Orig Print D/T: S: 11/07/2018 (0859) PAGE 2 Signed Report BASIC METABOLIC [id number] 12:15:00* Test Item Value Reference Range Interpretation [...] CA) 8.2 mg/dL 8.5-10.1 L BASIC METABOLIC [id number] 12:09:00* Test Item Value Reference Range Interpretation [...] code = CA) mg/dL 8.5-10.1 CBC W/AUTO [id number] 11:38:00* Test Item Value Reference Range Interpretation [...] (test code = MDIFF) NO CBC W/AUTO [id number] 11:32:00* Test Item Value Reference Range Interpretation [...] code = BA#) K/mm3 0.0-0.2 BASIC METABOLIC [id number] 09:30:00* Test Item Value Reference Range Interpretation [...] CA) 8.9 mg/dL 8.5-10.1 N HCG SERUM [id number] 09:30:00* Test Item Value Reference Range Interpretation Comments HCG SERUM QUAL (test code = HCGQL) NEGATIVE NEGATIVE This HCGQL test is NOT applicable for MALE patients.Check with nurse about probable order error.If Tumor Marker Test needed, nurse should order test "HCGTU"(Test #550.04963) [id number] 09:30:00* Test Item Value Reference Range Interpretation Comments TROPONIN-I (test code = TROPI) <0.015 ng/mL 0-0.045 N URINALYSIS [id number] 09:27:00* Test Item Value Reference Range Interpretation [...] per HPF NONE Urine Source? Clean CatchURINALYSIS TPHLWBRY0688-00-41 09:27:00* Test Item Value Reference Range Interpretation [...] NONE A Urine Source? Clean CatchBASIC METABOLIC HPWKD0437-08-83 09:24:00* Test Item Value Reference Range Interpretation [...] code = CA) mg/dL 8.5-10.1 HCG SERUM [id number] 09:24:00* Test Item Value Reference Range Interpretation Comments HCG SERUM QUAL (test code = HCGQL) NEGATIVE NEGATIVE This HCGQL test is NOT applicable for MALE patients.Check with nurse about probable order error.If Tumor Marker Test needed, nurse should order test "HCGTU"(Test #550.60103) [id number]-[id number] 09:24:00* Test Item Value Reference Range Interpretation Comments TROPONIN-I (test code = TROPI) ng/mL 0-0.045 BASIC METABOLIC [id number] 09:22:00* Test Item Value Reference Range Interpretation [...] code = CA) mg/dL 8.5-10.1 HCG SERUM [id number] 09:22:00* Test Item Value Reference Range Interpretation Comments HCG SERUM QUAL (test code = HCGQL) NEGATIVE [id number]-[id number] 09:22:00* Test Item Value Reference Range Interpretation Comments TROPONIN-I (test code = TROPI) ng/mL 0-0.045 CBC W/O [id number] 09:02:00* Test Item Value Reference Range Interpretation [...] MPV) 9.5 fL 6.7-11.0 N CBC W/O [id number] 08:59:00* Test Item Value Reference Range Interpretation [...] (test code = MPV) fL 6.7-11.0 Urine Zlopuwt1288-25-43 08:08:00* Test Item Value Reference Range Interpretation Comments Urine Culture (test code = 630-4) Organism: ESCHERICHIA COLI [facility] Uhxdcad6500-12-45 08:08:00* Test Item Value Reference Range Interpretation Comments Urine Culture (test code = 630-4) Organism: ESCHERICHIA COLI [facility] Zftbuhu6531-95-67 08:08:00* Test Item Value Reference Range Interpretation Comments Urine Culture (test code = 630-4) Organism: ESCHERICHIA COLI [facility] Jvrzaet8514-02-35 08:08:00* Test Item Value Reference Range Interpretation Comments Urine Culture (test code = 630-4) No Result Data Provided [facility] Aaztfwv2875-26-71 08:08:00* Test Item Value Reference Range Interpretation Comments Urine Culture (test code = 630-4) No Result Data Provided [facility] HCO2214-70-10 09:55:00* Test Item Value Reference Range Interpretation Comments Urine WBC (test code = 5821-4) 6-10 0-5 H [facility] OPI7732-75-72 09:55:00* Test Item Value Reference Range Interpretation Comments Urine RBC (test code = 65767-4) NONE 0-5 [facility] Ggatummk3415-52-01 09:55:00* Test Item Value Reference Range Interpretation Comments Urine Bacteria (test code = 89935-5) FEW NONE [facility] Epithelial Fapvn3911-61-29 09:55:00 * Test Item Value Reference Range Interpretation Comments Urine Epithelial Cells (test code = 91433-3) FEW NONE [facility] PI8194-04-40 09:43:00 [place] [address] Patient Name: ANGELA ESPINOSA MR #: [id number] : 1975 Age/Sex: 42/F Req #: [id number] Adm Physician: Ordered by: EROS SIDHU MD Report #: [id number] Location: ER Room/Bed: Procedure: [id number] CT/CT ABDOMEN/PELVIS WO Exam Date: 10/01/18 Exam [...] 10/01/18949 COPY TO: EROS SIDHU MD Urine Zzqsm2358-06-80 09:03:00* Test Item Value Reference Range Interpretation Comments Urine Color (test code = 5778-6) YELLOW YELLOW [facility] Jbdpjvn7227-06-58 09:03:00* Test Item Value Reference Range Interpretation Comments Urine Clarity (test code = 95180-5) SL CLOUDY CLEAR [facility] Specific Fmyomeq3439-19-16 09:03:00 * Test Item Value Reference Range Interpretation Comments Urine Specific [place] (test code = 5811-5) 1.015 1.010-1.02 5 [facility] [id number] 09:03:00* Test Item Value Reference Range Interpretation Comments Urine pH (test code = 94112-1) 6 5-7 [facility] Leukocyte Avstkuzj8054-81-23 09:03:00* Test Item Value Reference Range Interpretation Comments Urine Leukocyte Esterase (test code = 5799-2) TRACE NEGATIVE H [facility] Irtujdk6874-53-89 09:03:00* Test Item Value Reference Range Interpretation Comments Urine Nitrite (test code = 49944-2) NEGATIVE NEGATIVE [facility] Ossbgiq3042-22-89 09:03:00* Test Item Value Reference Range Interpretation Comments Urine Protein (test code = 5804-0) NEGATIVE NEGATIVE [facility] Glucose (UA)2018-10-01 09:03:00* Test Item Value Reference Range Interpretation Comments Urine Glucose (UA) (test code = 2349-9) NEGATIVE NEGATIVE [facility] Gduayjy6041-41-68 09:03:00* Test Item Value Reference Range Interpretation Comments Urine Ketones (test code = 18266-0) NEGATIVE NEGATIVE [facility] Gtrpwifehedf5965-90-70 09:03:00* Test Item Value Reference Range Interpretation Comments Urine Urobilinogen (test code = 39418-3) 0.2 0.2-1 [facility] Gigayvsda0240-22-02 09:03:00* Test Item Value Reference Range Interpretation Comments Urine Bilirubin (test code = 1978-6) NEGATIVE NEGATIVE [facility] Rljnm9589-45-25 09:03:00* Test Item Value Reference Range Interpretation Comments Urine Blood (test code = 19005-6) NEGATIVE NEGATIVE [facility] CenterCOMPREHENSIVE METABOLIC [id number] 17:29:00* Test Item Value Reference Range Interpretation [...] code = ALKP) 81 units/L 46-116 N [id number] 17:29:00* Test Item Value Reference Range Interpretation Comments AMYLASE (test code = JANIE) 70 units/L 30-110 N [id number] 17:29:00* Test Item Value Reference Range Interpretation Comments LIPASE (test code = LIP) 168 units/L 73-393 N DRUGS OF ABUSE SPRXEG5153-15-73 17:29:00* Test Item Value Reference Range Interpretation [...] CALLED TO CHELSYREAD BACK & CONFIRMED? YES.[facility] 6694. DETECTION CUT OFF: 100 ng/mL UR PHENCYCLIDINE (PCP) (test code = PHENCU) NEGATIVE NEGATIVE DETECTION CUT OFF: 25 ng/mL UA RFLX MICR CULT IF LQKKPFSNI2486-26-81 17:27:00* Test Item Value Reference Range Interpretation [...] = MUCU) 1+ NONE SEEN CBC W/AUTO [id number] 17:25:00* Test Item Value Reference Range Interpretation [...] = PLTMR) NORMAL YOANA L UR HCG QGMH2675-28-31 16:48:00* Test Item Value Reference Range Interpretation Comments UR HCG QUAL (test code = HCGQLU) NEGATIVE 1. Very dilute urine specimens, as indicated by a lowspecific gravity, may not contain account retention representative levels ofhCG. 2. False negative results may occur when the levels of hCGare below the sensitivity level of the test. If is still suspected, a first morningurine specimen should be collected 48 hours later andtested. CPK-MB ABRTQOP9458-46-03 14:27:00* Test Item Value Reference Range Interpretation Comments CKMB (test code = CKMBT) 0.6 ng/mL 0-3.6 N [id number]-[id number] 14:27:00* Test Item Value Reference Range Interpretation Comments TROPONIN-I (test code = TROPI) <0.017 ng/mL <0.056 N CPK-MB HCFOZAS4896-85-64 14:03:00* Test Item Value Reference Range Interpretation Comments CKMB (test code = CKMBT) 0.6 ng/mL 0-3.6 N RELATIVE % INDEX (test code = REL%) 0.0-5.0 [id number]-[id number] 14:03:00* Test Item Value Reference Range Interpretation Comments TROPONIN-I (test code = TROPI) <0.017 ng/mL <0.056 N - XR CHEST 1 [id number] 12:35:00 Patient Name: ANGELA ESPINOSA Unit No: [id number] EXAMS: CPT CODE: [id number] XR CHEST 1 V 53417 EXAMINATION: Chest x-ray 08/28/2018 at 1144 hours. [...] normal limits. IMPRESSION: Bilateral subsegmental atelectasis. at 1232 Reported and signed by: Cheryl Camacho MD CC: Suzanna Villalobos MD; Vicente Quispe MD Technologist: Jarek Reed, RT Trnscrbd D/ (7314) t.SDR.WS Orig Print D/T: S: 08/28/2018 (1238) [facility] NAME: ANGELA ESPINOSA Radiology Department PHYS: Suzanna Rojas MD [address] : 1975 AGE: 42 SEX: F [place], [place] [address] LOC: [place]IVIA PHONE #: [phone] EXAM DATE: 08/28/2018 STATUS: REG ER FAX #: [phone] RAD NO: Page 1 Signed Report CHEMISTRY 7 [id number] 12:23:00* Test Item Value Reference Range Interpretation [...] = CA) 8.0 mg/dL 8.4-10.2 L CPK-MB IAGTNJY8271-64-52 12:23:00* Test Item Value Reference Range Interpretation Comments CKMB (test code = CKMBT) <0.5 ng/mL 0-3.6 N NIBBQKQO-I1275-08-30 12:23:00* Test Item Value Reference Range Interpretation Comments TROPONIN-I (test code = TROPI) <0.017 ng/mL <0.056 N CHEMISTRY 7 [id number] 12:22:00* Test Item Value Reference Range Interpretation [...] = CA) 8.0 mg/dL 8.4-10.2 L CPK-MB UHPXCGO0519-28-41 12:22:00* Test Item Value Reference Range Interpretation Comments CKMB (test code = CKMBT) <0.5 ng/mL 0-3.6 N RELATIVE % INDEX (test code = REL%) 0.0-5.0 [id number]-[id number] 12:22:00* Test Item Value Reference Range Interpretation Comments TROPONIN-I (test code = TROPI) <0.017 ng/mL <0.056 N CBC W/AUTO [id number] 11:41:00* Test Item Value Reference Range Interpretation [...] PLTMR) NORMAL YOANA L DRUGS OF ABUSE TADGHR8368-83-31 10:07:00* Test Item Value Reference Range Interpretation Comments UR COCAINE (test code = COCAU) NEGATIVE NEGATIVE DETECTION CUT OFF: 150 ng/mL UR CANNABINOIDS (test code = CANU) POSITIVE NEGATIVE A RESULTS CALLED TO ER.READ BACK & CONFIRMED? Y.BY F.LAB.T 08/18/18 1007. DETECTION CUT OFF: 50 ng/mL UR AMPHETAMINE (test code = AMPHU) NEGATIVE NEGATIVE DETECTION CUT OFF: 500 ng/mL UR BARBITURATE QUAL (test code = BARBQLU) NEGATIVE NEGATIVE DETECTION CUT OFF: 200 ng/mL UR BENZODIAZEPINE (test code = BENZU) POSITIVE NEGATIVE A RESULTS CALLED TO ER.READ BACK & CONFIRMED? Y.BY F.LAB.T 08/18/18 1007. DETECTION CUT OFF: 150 ng/mL UR OPIATES QUAL (test code = OPIAQLU) NEGATIVE NEGATIVE DETECTION CUT OFF: 100 ng/mL UR PHENCYCLIDINE (PCP) (test code = PHENCU) NEGATIVE NEGATIVE DETECTION CUT OFF: 25 ng/mL BLPLWUYD-[id number] 10:05:00* Test Item Value Reference Range Interpretation Comments TROPONIN-I (test code = TROPI) <0.017 ng/mL <0.056 N INFLUENZA A B [id number] 09:22:00* Test Item Value Reference Range Interpretation Comments INFLUENZA A PCR (test code = FLUAPCR) NEGATIVE NEGATIVE INFLUENZA B PCR (test code = FLUBPCR) NEGATIVE NEGATIVE COMPREHENSIVE METABOLIC [id number] 08:56:00* Test Item Value Reference Range Interpretation [...] code = ALKP) 106 units/L 46-116 N ZYHGGQT6462-65-83 08:56:00* Test Item Value Reference Range Interpretation Comments AMYLASE (test code = JANIE) 81 units/L 30-110 N [id number] 08:56:00* Test Item Value Reference Range Interpretation Comments LIPASE (test code = LIP) 188 units/L 73-393 N CBC W/AUTO [id number] 08:36:00* Test Item Value Reference Range Interpretation [...] YOANA L UA RFLX MICR CULT IF [id number] 08:26:00* Test Item Value Reference Range Interpretation [...] = MUCU) RARE NONE SEEN CBC W/AUTO [id number] 11:03:00* Test Item Value Reference Range Interpretation [...] = MDIFF) NO DIFF/SCN CRITERIA BASIC METABOLIC ZFIYY7798-09-78 10:16:00* Test Item Value Reference Range Interpretation [...] = CA) 8.5 MG/DL 8.5-10.1 N URINALYSIS OJKDSPZK5222-54-19 10:14:00* Test Item Value Reference Range Interpretation [...] = LEUU) NEGATIVE Leuk/mcL NEGATIVE CBC W/AUTO [id number] 10:07:00* Test Item Value Reference Range Interpretation [...] DIFF/SCN CRITERIA - CT ABD PELVIS W/O [id number] 10:04:00 Name: ANGELA ESPINOSA [facility] [place] : 1975 Age/S: 42 / F [address] Unit #: [id number] Loc: [place] [address] Phys: Suzanna Villalobos MD Acct: [id number] Dis Date: Status: REG ER PHONE #: [phone] Exam Date: 08/12/2018 0940 FAX #: Reason: hx of renal stones uti EXAMS: CPT: [id number] CT ABD PELVIS W/O CONT 71321 LOCATION: T18 EXAM: CT ABDOMEN AND PELVIS [...] .. CTDI: DLP: Trnscb Date/Time: 08/12/2018 (1004) tSilvaSDR.JP19 Orig Print D/T: S: 08/12/2018 (1007) CTDI: DLP: PAGE 1 Signed Report - US RETRO [id number] 09:20:00 Patient Name: ANGELA ESPINOSA Unit No: [id number] EXAMS: CPT CODE: [id number] US RETRO LTD [address]85 CLINICAL HISTORY: Intense flank pain and hematuria. [...] Melinda Marrufo RDMS Probe: Trnscrbd D/ (0920) [place].DIONR.YOS Orig Print D/T: S: 08/07/2018 (0924) [facility] [facility] NAME: ANGELA ESPINOSA Radiology Department PHYS: Freddy Gandhi [address] : 1975 AGE: 42 SEX: F [place], [place] [address] LOC: ALIVIA PHONE #: [phone] EXAM DATE: 08/07/2018 STATUS: REG ER FAX #: [phone] RAD NO: Page 1 Signed Report Patient Name: ANGELA ESPINOSA Unit No: [id number] EXAMS: CPT CODE: [id number] RETRO LTD [id number] < Continued> [facility] NAME: ANGELA ESPINOSA Radiology Department PHYS: MONTRELL LeeFreddy [address] : 1975 AGE: 42 SEX: F [place], [place] [address] LOC: JessicaERS PHONE #: [phone] EXAM DATE: 08/07/2018 STATUS: REG ER FAX #: [phone] RAD NO: Page 2 Signed Report COMPREHENSIVE METABOLIC ESYZK8224-98-43 08:47:00* Test Item Value Reference Range Interpretation [...] 101 units/L 46-116 N DRUGS OF ABUSE BATOJV0314-36-08 08:44:00* Test Item Value Reference Range Interpretation Comments UR COCAINE (test code = COCAU) NEGATIVE NEGATIVE DETECTION CUT OFF: 150 ng/mL UR CANNABINOIDS (test code = CANU) POSITIVE NEGATIVE A RESULTS CALLED TO WILMA CORRAL BACK & CONFIR[facility]? [facility]07[facility]188[address]. DETECTION CUT OFF: 50 ng/mL UR AMPHETAMINE (test code = AMPHU) NEGATIVE NEGATIVE DETECTION CUT OFF: 500 ng/mL UR BARBITURATE QUAL (test code = BARBQLU) NEGATIVE NEGATIVE DETECTION CUT OFF: 200 ng/mL UR BENZODIAZEPINE (test code = BENZU) POSITIVE NEGATIVE A RESULTS CALLED TO WILMA CORRAL BACK & CONFIRMED? [employer] F.LAB.KG 08/07/18840. DETECTION CUT OFF: 150 ng/mL UR OPIATES QUAL (test code = OPIAQLU) POSITIVE NEGATIVE A RESULTS CALLED TO WILMA CORRAL BACK & CONFIRMED? [facility] 08/07/18840. DETECTION CUT OFF: 100 ng/mL UR PHENCYCLIDINE (PCP) (test code = PHENCU) NEGATIVE NEGATIVE DETECTION CUT OFF: 25 ng/mL CBC W/AUTO [id number] 08:38:00* Test Item Value Reference Range Interpretation [...] YOANA L UA RFLX MICR CULT IF NCUMPQJPV5955-77-96 08:29:00* Test Item Value Reference Range Interpretation [...] = MUCU) RARE NONE SEEN CT ABDOMEN/PELVIS TJ0067-48-15 10:13:00 [facility] [address] [address] Patient Name: ANGELA ESPINOSA MR #: [id number] : 1975 Age/Sex: 42/F Req #: [id number] Adm Physician: Ordered by: COLLETTE MARTINEZ MD Report #: [id number] Location: ER Room/Bed: Procedure: [id number] CT/CT [...] 1037 COPY TO: COLLETTE DUDLEY MD Sodium Dyhqq4297-44-57 09:43:00* Test Item Value Reference Range Interpretation Comments Sodium Level (test code = 2951-2) 135 136-145 L [facility]Pot[facility] Kbknd1625-50-06 09:43:00* Test Item Value Reference Range Interpretation Comments Potassium Level (test code = 2823-3) 3.5 3.5-5.1 [facility] CenterChloride Ibinx9124-07-02 09:43:00* Test Item Value Reference Range Interpretation Comments Chloride Level (test code = 2075-0) 106 98-107 [facility] CenterCarbon Dioxide Cmoob5614-88-43 09:43:00* Test Item Value Reference Range Interpretation Comments Carbon Dioxide Level (test code = 8-9) 22 22-29 [facility] CenterAnion Pzv3788-58-39 09:43:00* Test Item Value Reference Range Interpretation Comments Anion Gap (test code = 73031-9) 10.5 8-16 [facility] CenterBlood Urea Tatecjpi3025-44-40 09:43:00* Test Item Value Reference Range Interpretation Comments Blood Urea Nitrogen (test code = 3094-0) 7 7-26 [facility] CenterCreatinine2019-03-07 09:43:00* Test Item Value Reference Range Interpretation Comments Creatinine (test code = 2160-0) 0.83 0.57-1.11 [facility] CenterBUN/Creatinine Enisd6733-29-66 09:43:00* Test Item Value Reference Range Interpretation Comments BUN/Creatinine Ratio (test code = 3097-3) 8 6-25 [facility] CenterEstimat Glomerular Filtration Rate 2018-08-05 09:43:00* Test Item Value Reference Range Interpretation Comments Estimat Glomerular Filtration Rate (test code = 699857568) > 60 >60 Ranges were taken from the National Kidney Disease Education Program and the [facility] literature.Reference ranges:60 or greater: Ryisoc68-92 ( for 3 consecutive months): Chronic kidney disease 15 or less: Kidney failureSaint [facility]illus Medical CenterGlucose Vmwli5563-98-12 09:43:00* Test Item Value Reference Range Interpretation Comments Glucose Level (test code = PFJ7420) 114 74-118 [facility] CenterCalcium Dcbyn9918-01-47 09:43:00* Test Item Value Reference Range Interpretation Comments Calcium Level (test code = 74596-4) 8.6 8.4-10.2 [facility] CenterTotal Malqjuprn9348-63-64 09:43:00* Test Item Value Reference Range Interpretation Comments Total Bilirubin (test code = 1975-2) 0.2 0.2-1.2 [facility] CenterAspartate Amino Transf (AST/SGOT) 2018-08-05 09:43:00* Test Item Value Reference Range Interpretation Comments Aspartate Amino Transf (AST/SGOT) (test code = Aspartate Amino Transf (AST/SGOT)) 16 5-34 [facility] CenterAlanine Aminotransferase (ALT/SGPT) 2018-08-05 09:43:00* Test Item Value Reference Range Interpretation Comments Alanine Aminotransferase (ALT/SGPT) (test code = 1742-6) 21 0-55 [facility] CenterTotal Yezyabi9059-07-87 09:43:00* Test Item Value Reference Range Interpretation Comments Total Protein (test code = 2885-2) 6.0 6.5-8.1 L [facility] CenterAlbumin2019-03-07 09:43:00* Test Item Value Reference Range Interpretation Comments Albumin (test code = 1751-7) 3.2 3.5-5.0 L [facility] CenterGlobulin2019-03-07 09:43:00* Test Item Value Reference Range Interpretation Comments Globulin (test code = 37668-8) 2.8 2.3-3.5 [facility] CenterAlbumin/Globulin Lbhjv7394-53-17 09:43:00 * Test Item Value Reference Range Interpretation Comments Albumin/Globulin Ratio (test code = 1759-0) 1.1 0.8-2.0 [facility] CenterAlkaline Fvoqteycamc8405-09-84 09:43:00* Test Item Value Reference Range Interpretation Comments Alkaline Phosphatase (test code = 6768-6) 83 40-150 [facility] CenterLipase2019-03-07 09:43:00* Test Item Value Reference Range Interpretation Comments Lipase (test code = 3040-3) 29 8-78 [facility]odium Pgnsk0338-96-51 09:43:00* Test Item Value Reference Range Interpretation Comments Sodium Level (test code = 2951-2) 135 136-145 L [facility] CenterPotassium Plvbj2260-02-24 09:43:00* Test Item Value Reference Range Interpretation Comments Potassium Level (test code = 2823-3) 3.5 3.5-5.1 [facility] CenterChloride Hdlhr8578-98-21 09:43:00* Test Item Value Reference Range Interpretation Comments Chloride Level (test code = 2075-0) 106 98-107 [facility] CenterCarbon Dioxide Fjdnn5935-68-35 09:43:00* Test Item Value Reference Range Interpretation Comments Carbon Dioxide Level (test code = 2028-9) 22 22-29 [facility] CenterAnion Jcq2376-02-45 09:43:00* Test Item Value Reference Range Interpretation Comments Anion Gap (test code = 81526-9) 10.5 8-16 [facility] CenterBlood Urea Hehcvksg8169-83-03 09:43:00* Test Item Value Reference Range Interpretation Comments Blood Urea Nitrogen (test code = 3094-0) 7 7-26 [facility] CenterCreatinine2019-03-07 09:43:00* Test Item Value Reference Range Interpretation Comments Creatinine (test code = 2160-0) 0.83 0.57-1.11 [facility] CenterBUN/Creatinine Xoawm6879-37-42 09:43:00* Test Item Value Reference Range Interpretation Comments BUN/Creatinine Ratio (test code = 3097-3) 8 6-25 [facility] CenterEstimat Glomerular Filtration Rate 2018-08-05 09:43:00* Test Item Value Reference Range Interpretation Comments Estimat Glomerular Filtration Rate (test code = 285765152) > 60 >60 Ranges were taken from the National Kidney Disease Education Program and the [facility] Kidney Foundation literature.Reference ranges:60 or greater: Fpipkp88-55 ( for 3 consecutive months): Chronic kidney disease 15 or less: Kidney failureSaint [facility]illus Medical CenterGlucose Wxqro7293-69-16 09:43:00* Test Item Value Reference Range Interpretation Comments Glucose Level (test code = VMG7042) 114 74-118 [facility] CenterCalcium Zuwip8328-15-88 09:43:00* Test Item Value Reference Range Interpretation Comments Calcium Level (test code = 87064-8) 8.6 8.4-10.2 [facility] CenterTotal Uqnlnvizp6736-91-62 09:43:00* Test Item Value Reference Range Interpretation Comments Total Bilirubin (test code = 1975-2) 0.2 0.2-1.2 [facility] CenterAspartate Amino Transf (AST/SGOT) 2018-08-05 09:43:00* Test Item Value Reference Range Interpretation Comments Aspartate Amino Transf (AST/SGOT) (test code = Aspartate Amino Transf (AST/SGOT)) 16 5-34 [facility] CenterAlanine Aminotransferase (ALT/SGPT) 2018-08-05 09:43:00* Test Item Value Reference Range Interpretation Comments Alanine Aminotransferase (ALT/SGPT) (test code = 1742-6) 21 0-55 [facility] CenterTotal Zmjneva5771-80-19 09:43:00* Test Item Value Reference Range Interpretation Comments Total Protein (test code = 2885-2) 6.0 6.5-8.1 L [facility] CenterAlbumin2019-03-07 09:43:00* Test Item Value Reference Range Interpretation Comments Albumin (test code = 1751-7) 3.2 3.5-5.0 L [facility] CenterGlobulin2019-03-07 09:43:00* Test Item Value Reference Range Interpretation Comments Globulin (test code = 96463-8) 2.8 2.3-3.5 [facility] CenterAlbumin/Globulin Lcqxz0316-37-49 09:43:00 * Test Item Value Reference Range Interpretation Comments Albumin/Globulin Ratio (test code = 1759-0) 1.1 0.8-2.0 [facility] CenterAlkaline Wcknvjsdkcg0771-45-83 09:43:00* Test Item Value Reference Range Interpretation Comments Alkaline Phosphatase (test code = 6768-6) 83 40-150 [facility] CenterLipase2019-03-07 09:43:00* Test Item Value Reference Range Interpretation Comments Lipase (test code = 3040-3) 29 8-78 [facility] Hospitalodium Mdrjt5666-53-05 09:43:00* Test Item Value Reference Range Interpretation Comments Sodium Level (test code = 2951-2) 135 136-145 L [facility] CenterPotassium Nefii5314-83-90 09:43:00* Test Item Value Reference Range Interpretation Comments Potassium Level (test code = 2823-3) 3.5 3.5-5.1 [facility] CenterChloride Zsztv2039-29-67 09:43:00* Test Item Value Reference Range Interpretation Comments Chloride Level (test code = 2075-0) 106 98-107 [facility] CenterCarbon Dioxide Vjurt7346-29-58 09:43:00* Test Item Value Reference Range Interpretation Comments Carbon Dioxide Level (test code = 2028-9) 22 22-29 [facility] CenterAnion Kzu8621-99-66 09:43:00* Test Item Value Reference Range Interpretation Comments Anion Gap (test code = 21553-0) 10.5 8-16 [facility] CenterBlood Urea Gacvksds5242-37-12 09:43:00* Test Item Value Reference Range Interpretation Comments Blood Urea Nitrogen (test code = 3094-0) 7 7-26 [facility] CenterCreatinine2019-03-07 09:43:00* Test Item Value Reference Range Interpretation Comments Creatinine (test code = 2160-0) 0.83 0.57-1.11 [facility] CenterBUN/Creatinine Fccgw8134-03-60 09:43:00* Test Item Value Reference Range Interpretation Comments BUN/Creatinine Ratio (test code = 3097-3) 8 6- [facility] CenterEstimat Glomerular Filtration Rate 2018-08-05 09:43:00* Test Item Value Reference Range Interpretation Comments Estimat Glomerular Filtration Rate (test code = 923171087) > 60 >60 Ranges were taken from the National Kidney Disease Education Program and the [facility] Kid[facility] Foundation literature.Reference ranges:60 or greater: Lzevqf46-57 ( for 3 consecutive months): Chronic kidney disease 15 or less: Kidney failureSaint [facility]illus Medical CenterGlucose Dvpxg0684-72-68 09:43:00* Test Item Value Reference Range Interpretation Comments Glucose Level (test code = PJQ5294) 114 74-118 [facility] CenterCalcium Kivul0439-81-18 09:43:00* Test Item Value Reference Range Interpretation Comments Calcium Level (test code = 48586-7) 8.6 8.4-10.2 [facility] CenterTotal Fwydizfrq8280-71-93 09:43:00* Test Item Value Reference Range Interpretation Comments Total Bilirubin (test code = 1975-2) 0.2 0.2-1.2 [facility] CenterAspartate Amino Transf (AST/SGOT) 2018-08-05 09:43:00* Test Item Value Reference Range Interpretation Comments Aspartate Amino Transf (AST/SGOT) (test code = Aspartate Amino Transf (AST/SGOT)) 16 5-34 [facility] CenterAlanine Aminotransferase (ALT/SGPT) 2018-08-05 09:43:00* Test Item Value Reference Range Interpretation Comments Alanine Aminotransferase (ALT/SGPT) (test code = 1742-6) 21 0-55 [facility] CenterTotal Jwsggep9210-55-13 09:43:00* Test Item Value Reference Range Interpretation Comments Total Protein (test code = 2885-2) 6.0 6.5-8.1 L [facility] CenterAlbumin2019-03-07 09:43:00* Test Item Value Reference Range Interpretation Comments Albumin (test code = 1751-7) 3.2 3.5-5.0 L [facility] CenterGlobulin2019-03-07 09:43:00* Test Item Value Reference Range Interpretation Comments Globulin (test code = 67237-2) 2.8 2.3-3.5 [facility] CenterAlbumin/Globulin Fqwlb1737-39-01 09:43:00 * Test Item Value Reference Range Interpretation Comments Albumin/Globulin Ratio (test code = 1759-0) 1.1 0.8-2.0 [facility] CenterAlkaline Xvjjmytiejy5331-39-69 09:43:00* Test Item Value Reference Range Interpretation Comments Alkaline Phosphatase (test code = 6768-6) 83 40-150 [facility] CenterLipase2019-03-07 09:43:00* Test Item Value Reference Range Interpretation Comments Lipase (test code = 3040-3) 29 8-78 [facility] CenterUrine QXY1034-55-37 09:25:00* Test Item Value Reference Range Interpretation Comments Urine WBC (test code = 5821-4) 6-10 0-5 H [facility] CenterUrine CFF4975-01-02 09:25:00* Test Item Value Reference Range Interpretation Comments Urine RBC (test code = 32599-3) NONE 0-5 [facility] CenterUrine Swlkpwki2792-28-33 09:25:00* Test Item Value Reference Range Interpretation Comments Urine Bacteria (test code = 92990-9) NONE NONE [facility] CenterUrine Epithelial Uuvhr2124-83-06 09:25:00 * Test Item Value Reference Range Interpretation Comments Urine Epithelial Cells (test code = 01407-5) FEW NONE [facility] CenterUrine JHB6204-13-77 09:25:00* Test Item Value Reference Range Interpretation Comments Urine WBC (test code = 5821-4) 6-10 0-5 H [facility] CenterUrine LCK4868-93-24 09:25:00* Test Item Value Reference Range Interpretation Comments Urine RBC (test code = 44619-2) NONE 0-5 [facility] CenterUrine Rxckwnqy7243-51-30 09:25:00* Test Item Value Reference Range Interpretation Comments Urine Bacteria (test code = 35419-0) NONE NONE [facility] CenterUrine Epithelial Sdoab0026-31-34 09:25:00 * Test Item Value Reference Range Interpretation Comments Urine Epithelial Cells (test code = 28857-2) FEW NONE [facility] CenterUrine Znihj6634-89-38 09:14:00* Test Item Value Reference Range Interpretation Comments Urine Color (test code = 5778-6) YELLOW YELLOW [facility] CenterUrine Kpgoleo5295-29-49 09:14:00* Test Item Value Reference Range Interpretation Comments Urine Clarity (test code = 52959-9) CLEAR CLEAR [facility] CenterUrine Specific Ebhypde1107-57-39 09:14:00 * Test Item Value Reference Range Interpretation Comments Urine Specific [place] (test code = 5811-5) 1.010 1.010-1.02 5 [facility] CenterUrine dS6306-99-61 09:14:00* Test Item Value Reference Range Interpretation Comments Urine pH (test code = 18300-5) 6 5-7 [facility] CenterUrine Leukocyte Zbscuwzm9211-31-70 09:14:00* Test Item Value Reference Range Interpretation Comments Urine Leukocyte Esterase (test code = 5799-2) NEGATIVE NEGATIVE [facility] CenterUrine Xaapvtv5802-58-24 09:14:00* Test Item Value Reference Range Interpretation Comments Urine Nitrite (test code = 73712-4) NEGATIVE NEGATIVE [facility] CenterUrine Dynzyyn5240-13-38 09:14:00* Test Item Value Reference Range Interpretation Comments Urine Protein (test code = 5804-0) NEGATIVE NEGATIVE [facility] CenterUrine Glucose (UA)2018-08-05 09:14:00* Test Item Value Reference Range Interpretation Comments Urine Glucose (UA) (test code = 2349-9) NEGATIVE NEGATIVE [facility] CenterUrine Wpykyyd0902-27-80 09:14:00* Test Item Value Reference Range Interpretation Comments Urine Ketones (test code = 19303-5) NEGATIVE NEGATIVE [facility] Npwcjepqnkvg9675-32-17 09:14:00* Test Item Value Reference Range Interpretation Comments Urine Urobilinogen (test code = 38488-0) 0.2 0.2-1 [facility] Tbupguvet7837-16-90 09:14:00* Test Item Value Reference Range Interpretation Comments Urine Bilirubin (test code = 1978-6) NEGATIVE NEGATIVE [facility] CenterUrine Viavd9116-24-48 09:14:00* Test Item Value Reference Range Interpretation Comments Urine Blood (test code = 72943-3) NEGATIVE NEGATIVE [facility] CenterU[facility] Mraym4989-46-59 09:14:00* Test Item Value Reference Range Interpretation Comments Urine Color (test code = 5778-6) YELLOW YELLOW [facility] CenterUrine Xkipqhw4680-92-83 09:14:00* Test Item Value Reference Range Interpretation Comments Urine Clarity (test code = 59259-9) CLEAR CLEAR [facility] CenterUrine Specific Pwyhkwp6868-75-62 09:14:00 * Test Item Value Reference Range Interpretation Comments Urine Specific [place] (test code = 5811-5) 1.010 1.010-1.02 5 [facility] CenterUrine pR4936-54-72 09:14:00* Test Item Value Reference Range Interpretation Comments Urine pH (test code = 73172-9) 6 5-7 [facility] CenterUrine Leukocyte Wztzffaz4608-22-15 09:14:00* Test Item Value Reference Range Interpretation Comments Urine Leukocyte Esterase (test code = 5799-2) NEGATIVE NEGATIVE [facility] CenterU[facility] Zvdvowi7218-77-55 09:14:00* Test Item Value Reference Range Interpretation Comments Urine Nitrite (test code = 16294-9) NEGATIVE NEGATIVE [facility] CenterU[facility] Gqgpguv7738-58-72 09:14:00* Test Item Value Reference Range Interpretation Comments Urine Protein (test code = 5804-0) NEGATIVE NEGATIVE [facility] CenterUrine Glucose (UA)2018-08-05 09:14:00* Test Item Value Reference Range Interpretation Comments Urine Glucose (UA) (test code = 2349-9) NEGATIVE NEGATIVE [facility] CenterU[facility] Wmlxbnl6135-53-22 09:14:00* Test Item Value Reference Range Interpretation Comments Urine Ketones (test code = 53322-2) NEGATIVE NEGATIVE [facility] CenterU[facility] Kusdzlxzhgzy3256-09-48 09:14:00* Test Item Value Reference Range Interpretation Comments Urine Urobilinogen (test code = 96372-2) 0.2 0.2-1 [facility] CenterU[facility] Ptplahmyp0629-71-86 09:14:00* Test Item Value Reference Range Interpretation Comments Urine Bilirubin (test code = 1978-6) NEGATIVE NEGATIVE [facility] CenterU[facility] Johjr1069-23-55 09:14:00* Test Item Value Reference Range Interpretation Comments Urine Blood (test code = 63308-0) NEGATIVE NEGATIVE [facility] CenterWhite Blood Snemn2402-46-63 09:13:00* Test Item Value Reference Range Interpretation Comments White Blood Count (test code = 6690-2) 4.72 4.8-10.8 L [facility] CenterRed Blood Vynpf5339-74-59 09:13:00* Test Item Value Reference Range Interpretation Comments Red Blood Count (test code = 789-8) 4.19 3.6-5.1 [facility] CenterHemoglobin2019-03-07 09:13:00* Test Item Value Reference Range Interpretation Comments Hemoglobin (test code = 25428-8) 12.1 12.0-16.0 [facility] CenterHematocrit2019-03-07 09:13:00* Test Item Value Reference Range Interpretation Comments Hematocrit (test code = 4544-3) 36.4 34.2-44.1 [facility] CenterMean Corpuscular Slnpdi2581-91-21 09:13:00* Test Item Value Reference Range Interpretation Comments Mean Corpuscular Volume (test code = 787-2) 86.9 81-99 [facility] CenterMean Corpuscular Hhtqgkqjnn8461-19-15 09:13:00* Test Item Value Reference Range Interpretation Comments Mean Corpuscular Hemoglobin (test code = 785-6) 28.9 28-32 [facility] CenterMean Corpuscular Hemoglobin Concent 2018-08-05 09:13:00* Test Item Value Reference Range Interpretation Comments Mean Corpuscular Hemoglobin Concent (test code = 786-4) 33.2 31-35 [facility] CenterRed Cell Distribution Rhuch1583-61-54 09:13:00* Test Item Value Reference Range Interpretation Comments Red Cell Distribution Width (test code = 12680-7) 13.8 11.7 -14.4 [facility] CenterPlatelet Lmrbu6773-93-28 09:13:00* Test Item Value Reference Range Interpretation Comments Platelet Count (test code = 777-3) 270 140-360 [facility] CenterNeutrophils (%) (Auto)2018-08-05 09:13:00 * Test Item Value Reference Range Interpretation Comments Neutrophils (%) (Auto) (test code = 25034-9) 65.9 38.7-80.0 [facility] CenterLymphocytes (%) (Auto)2018-08-05 09:13:00 * Test Item Value Reference Range Interpretation Comments Lymphocytes (%) (Auto) (test code = 736-9) 26.1 18.0-39.1 [facility] CenterMonocytes (%) (Auto)2018-08-05 09:13:00* Test Item Value Reference Range Interpretation Comments Monocytes (%) (Auto) (test code = 5905-5) 5.5 4.4-11.3 [facility] CenterEosinophils (%) (Auto)2018-08-05 09:13:00 * Test Item Value Reference Range Interpretation Comments Eosinophils (%) (Auto) (test code = 713-8) 1.9 0.0-6.0 [facility] CenterBasophils (%) (Auto)2018-08-05 09:13:00* Test Item Value Reference Range Interpretation Comments Basophils (%) (Auto) (test code = 706-2) 0.6 0.0-1.0 [facility] CenterIM GRANULOCYTES %2018-08-05 09:13:00* Test Item Value Reference Range Interpretation Comments IM GRANULOCYTES % (test code = IM GRANULOCYTES %) 0.0 0.0- 1.0 [facility] CenterNeutrophils # (Auto)2018-08-05 09:13:00* Test Item Value Reference Range Interpretation Comments Neutrophils # (Auto) (test code = 751-8) 3.1 2.1-6.9 [facility] CenterLymphocytes # (Auto)2018-08-05 09:13:00* Test Item Value Reference Range Interpretation Comments Lymphocytes # (Auto) (test code = 56173-5) 1.2 1.0-3.2 [facility] CenterMonocytes # (Auto)2018-08-05 09:13:00* Test Item Value Reference Range Interpretation Comments Monocytes # (Auto) (test code = 742-7) 0.3 0.2-0.8 [facility] CenterEosinophils # (Auto)2018-08-05 09:13:00* Test Item Value Reference Range Interpretation Comments Eosinophils # (Auto) (test code = 711-2) 0.1 0.0-0.4 [facility] CenterBasophils # (Auto)2018-08-05 09:13:00* Test Item Value Reference Range Interpretation Comments Basophils # (Auto) (test code = 704-7) 0.0 0.0-0.1 [facility] CenterAbsolute Immature Granulocyte (auto 2018-08-05 09:13:00* Test Item Value Reference Range Interpretation Comments Absolute Immature Granulocyte (auto (alexa t code = Absolute Immature Granulocyte (auto) 0 0-0.1 [facility] CenterWhite Blood Xjptw5084-55-81 09:13:00* Test Item Value Reference Range Interpretation Comments White Blood Count (test code = 6690-2) 4.72 4.8-10.8 L [facility] CenterRed Blood Jqzdj7180-98-64 09:13:00* Test Item Value Reference Range Interpretation Comments Red Blood Count (test code = 789-8) 4.19 3.6-5.1 [facility] CenterHemoglobin2019-03-07 09:13:00* Test Item Value Reference Range Interpretation Comments Hemoglobin (test code = 28014-3) 12.1 12.0-16.0 [facility] CenterHematocrit2019-03-07 09:13:00* Test Item Value Reference Range Interpretation Comments Hematocrit (test code = 4544-3) 36.4 34.2-44.1 [facility] CenterMean Corpuscular Tkmcge7558-92-75 09:13:00* Test Item Value Reference Range Interpretation Comments Mean Corpuscular Volume (test code = 787-2) 86.9 81-99 [facility] CenterMean Corpuscular Johpfzlkwo5789-33-82 09:13:00* Test Item Value Reference Range Interpretation Comments Mean Corpuscular Hemoglobin (test code = 785-6) 28.9 28-32 [facility] CenterMean Corpuscular Hemoglobin Concent 2018-08-05 09:13:00* Test Item Value Reference Range Interpretation Comments Mean Corpuscular Hemoglobin Concent (test code = 786-4) 33.2 31-35 [facility] Cell Distribution Rdqnq6985-71-74 09:13:00* Test Item Value Reference Range Interpretation Comments Red Cell Distribution Width (test code = 71587-0) 13.8 11.7 -14.4 [facility] CenterPlatelet Ugqeh8016-83-48 09:13:00* Test Item Value Reference Range Interpretation Comments Platelet Count (test code = 777-3) 270 140-360 [facility] CenterNeutrophils (%) (Auto)2018-08-05 09:13:00 * Test Item Value Reference Range Interpretation Comments Neutrophils (%) (Auto) (test code = 99313-1) 65.9 38.7-80.0 [facility] CenterLymphocytes (%) (Auto)2018-08-05 09:13:00 * Test Item Value Reference Range Interpretation Comments Lymphocytes (%) (Auto) (test code = 736-9) 26.1 18.0-39.1 [facility] CenterMonocytes (%) (Auto)2018-08-05 09:13:00* Test Item Value Reference Range Interpretation Comments Monocytes (%) (Auto) (test code = 5905-5) 5.5 4.4-11.3 [facility] CenterEosinophils (%) (Auto)2018-08-05 09:13:00 * Test Item Value Reference Range Interpretation Comments Eosinophils (%) (Auto) (test code = 713-8) 1.9 0.0-6.0 [facility] CenterBasophils (%) (Auto)2018-08-05 09:13:00* Test Item Value Reference Range Interpretation Comments Basophils (%) (Auto) (test code = 706-2) 0.6 0.0-1.0 [facility] CenterIM GRANULOCYTES %2018-08-05 09:13:00* Test Item Value Reference Range Interpretation Comments IM GRANULOCYTES % (test code = IM GRANULOCYTES %) 0.0 0.0- 1.0 [facility] CenterNeutrophils # (Auto)2018-08-05 09:13:00* Test Item Value Reference Range Interpretation Comments Neutrophils # (Auto) (test code = 751-8) 3.1 2.1-6.9 [facility] CenterLymphocytes # (Auto)2018-08-05 09:13:00* Test Item Value Reference Range Interpretation Comments Lymphocytes # (Auto) (test code = 87840-8) 1.2 1.0-3.2 [facility] CenterMonocytes # (Auto)2018-08-05 09:13:00* Test Item Value Reference Range Interpretation Comments Monocytes # (Auto) (test code = 742-7) 0.3 0.2-0.8 [facility] CenterEosinophils # (Auto)2018-08-05 09:13:00* Test Item Value Reference Range Interpretation Comments Eosinophils # (Auto) (test code = 711-2) 0.1 0.0-0.4 [facility] CenterBasophils # (Auto)2018-08-05 09:13:00* Test Item Value Reference Range Interpretation Comments Basophils # (Auto) (test code = 704-7) 0.0 0.0-0.1 [facility] CenterAbsolute Immature Granulocyte (auto 2018-08-05 09:13:00* Test Item Value Reference Range Interpretation Comments Absolute Immature Granulocyte (auto (alexa t code = Absolute Immature Granulocyte (auto) 0 0-0.1 [facility] CenterWhite Blood Jgdwb2744-37-38 09:13:00* Test Item Value Reference Range Interpretation Comments White Blood Count (test code = 6690-2) 4.72 4.8-10.8 L [facility] CenterRed Blood Xxids4075-17-64 09:13:00* Test Item Value Reference Range Interpretation Comments Red Blood Count (test code = 789-8) 4.19 3.6-5.1 [facility] CenterHemoglobin2019-03-07 09:13:00* Test Item Value Reference Range Interpretation Comments Hemoglobin (test code = 68641-3) 12.1 12.0-16.0 [facility] CenterHematocrit2019-03-07 09:13:00* Test Item Value Reference Range Interpretation Comments Hematocrit (test code = 4544-3) 36.4 34.2-44.1 [facility] CenterMean Corpuscular Hxeody9377-15-34 09:13:00* Test Item Value Reference Range Interpretation Comments Mean Corpuscular Volume (test code = 787-2) 86.9 81-99 [facility] CenterMean Corpuscular Acfbhzugdq0058-46-54 09:13:00* Test Item Value Reference Range Interpretation Comments Mean Corpuscular Hemoglobin (test code = 785-6) 28.9 28-32 [facility] CenterMean Corpuscular Hemoglobin Concent 2018-08-05 09:13:00* Test Item Value Reference Range Interpretation Comments Mean Corpuscular Hemoglobin Concent (test code = 786-4) 33.2 31-35 [facility] CenterRed Cell Distribution Bwqbf9776-92-15 09:13:00* Test Item Value Reference Range Interpretation Comments Red Cell Distribution Width (test code = 55675-1) 13.8 11.7 -14.4 [facility] CenterPlatelet Cjoca9596-83-00 09:13:00* Test Item Value Reference Range Interpretation Comments Platelet Count (test code = 777-3) 270 140-360 [facility] CenterNeutrophils (%) (Auto)2018-08-05 09:13:00 * Test Item Value Reference Range Interpretation Comments Neutrophils (%) (Auto) (test code = 11115-2) 65.9 38.7-80.0 [facility] CenterLymphocytes (%) (Auto)2018-08-05 09:13:00 * Test Item Value Reference Range Interpretation Comments Lymphocytes (%) (Auto) (test code = 736-9) 26.1 18.0-39.1 [facility] CenterMonocytes (%) (Auto)2018-08-05 09:13:00* Test Item Value Reference Range Interpretation Comments Monocytes (%) (Auto) (test code = 5905-5) 5.5 4.4-11.3 [facility] CenterEosinophils (%) (Auto)2018-08-05 09:13:00 * Test Item Value Reference Range Interpretation Comments Eosinophils (%) (Auto) (test code = 713-8) 1.9 0.0-6.0 [facility] CenterBasophils (%) (Auto)2018-08-05 09:13:00* Test Item Value Reference Range Interpretation Comments Basophils (%) (Auto) (test code = 706-2) 0.6 0.0-1.0 [facility] CenterIM GRANULOCYTES %2018-08-05 09:13:00* Test Item Value Reference Range Interpretation Comments IM GRANULOCYTES % (test code = IM GRANULOCYTES %) 0.0 0.0- 1.0 [facility] CenterNeutrophils # (Auto)2018-08-05 09:13:00* Test Item Value Reference Range Interpretation Comments Neutrophils # (Auto) (test code = 751-8) 3.1 2.1-6.9 [facility] CenterLymphocytes # (Auto)2018-08-05 09:13:00* Test Item Value Reference Range Interpretation Comments Lymphocytes # (Auto) (test code = 42266-2) 1.2 1.0-3.2 [facility] CenterMonocytes # (Auto)2018-08-05 09:13:00* Test Item Value Reference Range Interpretation Comments Monocytes # (Auto) (test code = 742-7) 0.3 0.2-0.8 [facility] CenterEosinophils # (Auto)2018-08-05 09:13:00* Test Item Value Reference Range Interpretation Comments Eosinophils # (Auto) (test code = 711-2) 0.1 0.0-0.4 [facility] CenterBasophils # (Auto)2018-08-05 09:13:00* Test Item Value Reference Range Interpretation Comments Basophils # (Auto) (test code = 704-7) 0.0 0.0-0.1 [facility] CenterAbsolute Immature Granulocyte (auto 2018-08-05 09:13:00* Test Item Value Reference Range Interpretation Comments Absolute Immature Granulocyte (auto (alexa t code = Absolute Immature Granulocyte (auto) 0 0-0.1 [facility]- US PELVIS [id number] 12:27:00 Name: ANGELA ESPINOSA [facility] : 1975 Age/S: 42 / F [address] [facility] Unit #: [id number] Loc: PRINCE [place] [address] Phys: Jerri Bryson DIGITAL MEDIA SPECIALIST Acct: [id number] Di s Date: Status: REG ER PHONE #: Exam Date: 07/29/2018 1138 FAX #: Reason: RLQ pain, eval ovary EXAMS: CPT CODE: [id number] US PELVIS COM PLETE 47507 EXAM: Pelvic and transvag inal ultrasound and [...] Kaur MD; India Bryson NP Technologist: Veronika Templeton(S)([facility] Trnscb D ate/Time: 07/29/2018 (1227) RadhaW Orig Print D/T: S: 07/29/2018 (1150) Probe: PAGE 1 Signed Report - US TRANSVAGINAL NON [id number] 12:27:00 Name: ANGELA ESPINOSA [facility] : 1975 Age/S: 42 / F [address] [facility] Unit #: [id number] Loc: PRINCE [place] [address] Phys: India Bryson DIGITAL MEDIA SPECIALIST Acct: [id number] Dis Date: Status: REG ER PHONE #: [phone] Exam Date: 07/29/2018 1133 FAX #: [phone] Reason: RLQ pain, eval ovary EXAMS: CPT CODE: [id number] [place] [address] EXAM: Pelvic and transvaginal ultrasound and duplex [...] MD; India Bryson NP Technologist: Veronika Templeton(S)([facility]) Trnakb Date/Time: 07/29/2018 (1227) tFIONAGRW Orig Print D/T: S: 07/29/2018 (1230) Probe: [id number] PAGE 1 Signed Report - DUP AB/PEL/SC GIBS3023-64-30 12:27:00 Name: ANGELA ESPINOSA [facility] : 1975 Age/S: 42 / F [address] [facility] Unit #: [id number] Loc: [place] [address] Phys: Jerri Bryson NP Acct: [id number] Di s Date: Status: REG ER PHONE #: Exam Date: 07/29/2018 9600 FAX #: Reason: RLQ pain EXAMS: CPT CODE: [id number] DUP AB/PEL/SC COMP 25446 EXAM: Pelvic and transvag inal ultrasound and [...] Technologist: Veronika Templeton(S)([facility]) Trnscb D ate/Time: 07/29/2018 (5937) Dayna Orig Print D/T: S: 07/29/2018 (0527) Probe: PAGE 1 Signed Report - US ABDOMEN [id number] 12:25:00 Name: ANGELA ESPINOSA [facility] : 1975 Age/S: 42 / F [address] [facility] Unit #: [id number] Loc: [place] [address] Phys: India Bryson NP Acct: [id number] Dis Date: Status: REG ER PHONE #: [phone] Exam Date: 07/29/2018 1101 FAX #: [phone] Reason: RLQ pain EXAMS: CPT CODE: [id number] US ABDOMEN COMPLETE 71610 EXAM: Ultrasound of the abdomen; INFORMATION: Abdominal [...] NP Technologist: Veronika Templeton(S)([facility]) Trnscb Date/Time: 07/29/2018 (7615) SilasGRW Orig Print D/T: S: 07/29/2018 (7178) Probe: PAGE 1 Signed Report CBC W/O [id number] 09:37:00* Test Item Value Reference Range Interpretation [...] code = MPV) fL 6.7-11.0 CBC W/O PHWB1696-73-91 09:37:00* Test Item Value Reference Range Interpretation [...] MPV) 9.4 fL 6.7-11.0 N BASIC METABOLIC PCJMF7312-37-87 09:29:00* Test Item Value Reference Range Interpretation [...] CA) 8.4 mg/dL 8.5-10.1 L HEPATIC FUNCTION [id number] 09:29:00* Test Item Value Reference Range Interpretation [...] reference range due to change in reagent. [id number] 09:29:00* Test Item Value Reference Range Interpretation Comments LIPASE (test code = LIP) 188 U/L 73.0-393.0 N HCG SERUM [id number] 09:29:00* Test Item Value Reference Range Interpretation Comments HCG SERUM QUAL (test code = HCGQL) NEGATIVE NEGATIVE This HCGQL test is NOT applicable for MALE patients.Check with nurse about probable order error.If Tumor Marker Test needed, nurse should order test "HCGTU"(Test #550.80379) BASIC METABOLIC [id number] 09:22:00* Test Item Value Reference Range Interpretation [...] code = CA) mg/dL 8.5-10.1 HEPATIC FUNCTION [id number] 09:22:00* Test Item Value Reference Range Interpretation [...] TOTAL (test code = ALKP) IUnit/L 45-117 DTQSUZ1390-96-86 09:22:00* Test Item Value Reference Range Interpretation Comments LIPASE (test code = LIP) U/L 73.0-393.0 HCG SERUM [id number] 09:22:00* Test Item Value Reference Range Interpretation Comments HCG SERUM QUAL (test code = HCGQL) NEGATIVE NEGATIVE This HCGQL test is NOT applicable for MALE patients.Check with nurse about probable order error.If Tumor Marker Test needed, nurse should order test "HCGTU"(Test #550.18964) BASIC METABOLIC [id number] 09:22:00* Test Item Value Reference Range Interpretation [...] code = CA) mg/dL 8.5-10.1 HEPATIC FUNCTION [id number] 09:22:00* Test Item Value Reference Range Interpretation [...] TOTAL (test code = ALKP) IUnit/L 45-117 [id number] 09:22:00* Test Item Value Reference Range Interpretation Comments LIPASE (test code = LIP) U/L 73.0-393.0 HCG SERUM [id number] 09:22:00* Test Item Value Reference Range Interpretation Comments HCG SERUM QUAL (test code = HCGQL) NEGATIVE NEGATIVE This HCGQL test is NOT applicable for MALE patients.Check with nurse about probable order error.If Tumor Marker Test needed, nurse should order test "HCGTU"(Test #550.99932) URINALYSIS [id number] 09:15:00* Test Item Value Reference Range Interpretation [...] FEW #/LPF FEW Urine Source? Clean CatchURINALYSIS ISZRAGCJ9571-54-39 09:12:00* Test Item Value Reference Range Interpretation [...] 0-5 Urine Source? Clean CatchDRUGS OF ABUSE [id number] 10:04:00* Test Item Value Reference Range Interpretation Comments UR COCAINE (test code = COCAU) NEGATIVE NEGATIVE DETECTION CUT OFF: 150 ng/mL UR CANNABINOIDS (test code = CANU) POSITIVE NEGATIVE A RESULTS CALLED TO Anna AscencioREAD BACK & CONFIRMED? Y.BY CORINNET 07/22/18 1001. DETECTION CUT OFF: 50 ng/mL [...] 25 ng/mL UA RFLX MICR CULT IF [id number] 09:43:00* Test Item Value Reference Range Interpretation [...] = MUCU) RARE NONE SEEN COMPREHENSIVE METABOLIC [id number] 11:56:00* Test Item Value Reference Range Interpretation [...] code = ALKP) 102 units/L 46-116 N [id number] 11:56:00* Test Item Value Reference Range Interpretation Comments LIPASE (test code = LIP) 108 units/L 73-393 N CBC W/AUTO [id number] 11:30:00* Test Item Value Reference Range Interpretation [...] PLTMR) NORMAL YOANA L DRUGS OF ABUSE [id number] 11:17:00* Test Item Value Reference Range Interpretation Comments UR COCAINE (test code = COCAU) NEGATIVE NEGATIVE DETECTION CUT OFF: 150 ng/mL UR CANNABINOIDS (test code = CANU) POSITIVE NEGATIVE A DETECTION CUT OFF: 50 ng/mLPreviously reported result: POSITIVE Edited by: [employer]BATS on 07/03/18:1116CANU prev. reported as:POSITIVE H . RESULTS CALLED TO .. READ BACK & CONFIRMED? . BY [employer].KG 07/03/18 1114. UR AMPHETAMINE (test code = AMPHU) NEGATIVE NEGATIVE DETECTION CUT OFF: 500 ng/mL UR BARBITURATE QUAL (test code = BARBQLU) NEGATIVE NEGATIVE DETECTION CUT OFF: 200 ng/mL UR BENZODIAZEPINE (test code = BENZU) POSITIVE NEGATIVE A RESULTS CALLED TO WANDA CHOPRA BACK & CONFIRMED? HARISH Rock'n RoverLAB.KG 07/03/18 1113. DETECTION CUT OFF: 150 ng/mLPreviously reported result: POSITIVE Edited by: [employer]KG on 07/03/18:1116BENZU prev. reported as:POSITIVE H . RESULTS CALLED TO .. READ BACK & CONFIRMED? . BY Rock'[employer] RoverLAB.KG 07/03/18 1113. UR OPIATES QUAL (test code = OPIAQLU) POSITIVE NEGATIVE A RESULTS CALLED TO WANDA GREAD BACK & CONFIRMED? HARISH Gorb.LAB. 07/03/18 1114. DETECTION CUT OFF: 100 ng/mLPreviously reported result: POSITIVE Edited by: .Avaamo. on 07/03/18:1117OPIAQLU prev. reported as:POSITIVE H . RESULTS CALLED TO .. READ BACK & CONFIRMED? . BY .LAB. 07/03/18 1114. UR PHENCYCLIDINE (PCP) (test code = PHENCU) NEGATIVE NEGATIVE DETECTION CUT OFF: 25 ng/mL DRUGS OF ABUSE [id number] 11:16:00* Test Item Value Reference Range Interpretation [...] DETECTION CUT OFF: 25 ng/mL UR HCG [id number] 11:00:00* Test Item Value Reference Range Interpretation Comments UR HCG QUAL (test code = HCGQLU) NEGATIVE 1. Very dilute urine specimens, as indicated by a lowspecific gravity, may not contain account retention representative levels ofhCG. 2. False negative results may occur when the levels of hCGare below the sensitivity level of the test. If is still suspected, a first morningurine specimen should be collected 48 hours later andtested. - XR ABDOMEN 1 [id number] 09:21:00 Patient Name: ANGELA ESPINOSA Unit No: [id number] EXAMS: CPT CODE: [id number] XR ABDOMEN 1 V 97971 ABDOMEN KUB, 07/01/2018: COMPARISON: March 22, 2018 [...] (920) SilasAJ13 Orig Print D/T: S: 07/01/2018 (923) [facility] NAME: ANGELA ESPINOSA Radiology Department PHYS: COLETTE - Radha Caruso [address] : 1975 AGE: 42 SEX: F [place], [place] [address] LOC: ALIVIA PHONE #: [phone] EXAM DATE: 07/01/2018 STATUS: REG ER FAX #: [phone] RAD NO: Page 1 Signed Report COMPREHENSIVE METABOLIC [id number] 09:02:00* Test Item Value Reference Range Interpretation [...] code = ALKP) 102 units/L 46-116 N [id number] 09:02:00* Test Item Value Reference Range Interpretation Comments AMYLASE (test code = JANIE) 56 units/L 30-110 N [id number] 09:02:00* Test Item Value Reference Range Interpretation Comments LIPASE (test code = LIP) 114 units/L 73-393 N CBC W/AUTO [id number] 08:48:00* Test Item Value Reference Range Interpretation [...] code = PLTMR) NORMAL YOANA L HERNIA [id number] 20:35:00 RUN DATE: 06/29/18 [facility] PAGE 1 RUN TIME: 1229 Specimen Inqui ry RUN USER: INTERFACE PATIENT: ANGELA ESPINOSA ACCT #: [id number] [facility] U #: [id number] AGE/SX: 42/F ROOM: [facility] RE06/23/18FELICIANO DR: Jose Layne : 79 BED: A DIS: 06/27/18 STATUS: DIS IN TLOC: SPEC #: [id number] RECD: 06/25/18 STATUS: SHAGUFTA CONNOLLY #: [id number] MICHELLE: 06/25/18- SUBM DR: Jose Layne MD ENTERED: 06/25/18 SP TYPE: HERSAC OTHR DR: ORDERED: LEVEL II SURGIC/2 CODES: [id number] - SOFT TISSUES, N PROCEDURES: LEVEL II [...] identification only) Tissue code 1 CPT code(s): 36349, 01445 pkg/wpd dt: 06/28/18 GROSS DESCRIPTION EARL OMIC [...] iscrete discolored nor firm area is noted. [employer]oline Engine [employer]er sections are submit luisito labeled A . [...] Specimen Inquiry RUN USER: INTERFACE SPEC #: [id number] PATIENT: ANGELA NAIR #[id number] (Continued) GROSS DESC RIPTION (Continued) Gasoline Engine Assembler sections of the mesh and adhesed tissue are submitted labeled Roxanna goel 06/25/18 @ 1140 MICROSCOPIC DESCRIPT ION Specimen #1 consists of [...] Hopkins 06/28/182034 END OF REPORT UR HCG [id number] 20:08:00* Test Item Value Reference Range Interpretation Comments UR HCG QUAL (test code = HCGQLU) NEGATIVE 1. Very dilute urine specimens, as indicated by a lowspecific gravity, may not contain account retention representative levels ofhCG. 2. False negative results may occur when the levels of hCGare below the sensitivity level of the test. If is still suspected, a first morningurine specimen should be collected 48 hours later andtested. COMPREHENSIVE METABOLIC [id number] 11:42:00* Test Item Value Reference Range Interpretation [...] code = ALKP) 96 units/L 46-116 N [id number] 11:42:00* Test Item Value Reference Range Interpretation Comments LIPASE (test code = LIP) 129 units/L 73-393 N CBC W/AUTO [id number] 11:11:00* Test Item Value Reference Range Interpretation [...] PLTMR) NORMAL YOANA L DRUGS OF ABUSE [id number] 10:55:00* Test Item Value Reference Range Interpretation Comments UR COCAINE (test code = COCAU) NEGATIVE NEGATIVE DETECTION CUT OFF: 150 ng/mL UR CANNABINOIDS (test code = CANU) POSITIVE NEGATIVE A RESULTS CALLED TO MARGOTH Tim.READ BACK & CONFIRMED? Y.BY F.LAB.[facility] 06/23/18 1054. DETECTION CUT OFF: 50 ng/mL UR AMPHETAMINE (test code = AMPHU) NEGATIVE NEGATIVE DETECTION CUT OFF: 500 ng/mL UR BARBITURATE QUAL (test code = BARBQLU) NEGATIVE NEGATIVE DETECTION CUT OFF: 200 ng/mL UR BENZODIAZEPINE (test code = BENZU) POSITIVE NEGATIVE A RESULTS CALLED TO TOBIAS.READ BACK & CONFIRMED? Y.BY F.LAB.[facility] 06/23/18 1054. DETECTION CUT OFF: 150 ng/mL UR OPIATES QUAL (test code = OPIAQLU) NEGATIVE NEGATIVE DETECTION CUT OFF: 100 ng/mL UR PHENCYCLIDINE (PCP) (test code = PHENCU) NEGATIVE NEGATIVE DETECTION CUT OFF: 25 ng/mL UA RFLX MICR CULT IF [id number] 10:27:00* Test Item Value Reference Range Interpretation [...] code = MUCU) RARE NONE SEEN Urine [id number] 10:28:00* Test Item Value Reference Range Interpretation Comments Urine WBC (test code = 5821-4) 6-10 0-5 H [facility] CenterUrine [id number] 10:28:00* Test Item Value Reference Range Interpretation Comments Urine RBC (test code = 47322-0) NONE 0-5 [facility] CenterUrine Vzciysus9628-73-66 10:28:00* Test Item Value Reference Range Interpretation Comments Urine Bacteria (test code = 17210-4) MODERATE NONE H [facility] CenterUrine Epithelial Aepoq3516-76-83 10:28:00 * Test Item Value Reference Range Interpretation Comments Urine Epithelial Cells (test code = 40708-5) RARE NONE [facility] Eiyet9301-40-33 10:24:00* Test Item Value Reference Range Interpretation Comments Sodium Level (test code = 2951-2) 138 136-145 [facility] CenterPotassium Vqfwg1082-06-62 10:24:00* Test Item Value Reference Range Interpretation Comments Potassium Level (test code = 2823-3) 3.7 3.5-5.1 [facility] CenterChloride [id number] 10:24:00* Test Item Value Reference Range Interpretation Comments Chloride Level (test code = 2075-0) 108 98-107 H [facility] CenterCarbon Dioxide [id number] 10:24:00* Test Item Value Reference Range Interpretation Comments Carbon Dioxide Level (test code = 2028-9) 23 22-29 [facility] CenterAnion [id number] 10:24:00* Test Item Value Reference Range Interpretation Comments Anion Gap (test code = 09906-9) 10.7 8-16 [facility] CenterBlood Urea Qdovrkpp5859-09-76 10:24:00* Test Item Value Reference Range Interpretation Comments Blood Urea Nitrogen (test code = 3094-0) 9 7-26 [facility] CenterCreatinine2019-01-15 10:24:00* Test Item Value Reference Range Interpretation Comments Creatinine (test code = 2160-0) 0.99 0.57-1.11 [facility] CenterBUN/Creatinine Zaopj7399-42-79 10:24:00* Test Item Value Reference Range Interpretation Comments BUN/Creatinine Ratio (test code = 3097-3) 9 6-25 [facility] CenterEstimat Glomerular Filtration Rate 2018-06-15 10:24:00* Test Item Value Reference Range Interpretation Comments Estimat Glomerular Filtration Rate (test code = 683867120) > 60 >60 Ranges were taken from the National Kidney Disease Education Program and the [facility] Kidney Foundation literature.Reference ranges:60 or greater: Arafle32-45 ( for 3 consecutive months): Chronic kidney disease 15 or less: Kidney failureSaint Camillus Medical CenterGlucose Tuwcv8338-63-65 10:24:00* Test Item Value Reference Range Interpretation Comments Glucose Level (test code = VGP9646) 76 74-118 [facility] CenterCalcium Rajuy7362-79-22 10:24:00* Test Item Value Reference Range Interpretation Comments Calcium Level (test code = 77621-5) 8.5 8.4-10.2 [facility] CenterTotal Kpsjhjgzo1277-01-01 10:24:00* Test Item Value Reference Range Interpretation Comments Total Bilirubin (test code = 1975-2) 0.2 0.2-1.2 [facility] CenterAspartate Amino Transf (AST/SGOT) 2018-06-15 10:24:00* Test Item Value Reference Range Interpretation Comments Aspartate Amino Transf (AST/SGOT) (test code = Aspartate Amino Transf (AST/SGOT)) 17 5-34 [facility] CenterAlanine Aminotransferase (ALT/SGPT) 2018-06-15 10:24:00* Test Item Value Reference Range Interpretation Comments Alanine Aminotransferase (ALT/SGPT) (test code = 1742-6) 19 0-55 [facility] CenterTotal Meuvhhl7919-74-26 10:24:00* Test Item Value Reference Range Interpretation Comments Total Protein (test code = 2885-2) 6.3 6.5-8.1 L [facility] CenterAlbumin2019-01-15 10:24:00* Test Item Value Reference Range Interpretation Comments Albumin (test code = 1751-7) 3.6 3.5-5.0 [facility] CenterGlobulin2019-01-15 10:24:00* Test Item Value Reference Range Interpretation Comments Globulin (test code = 39020-0) 2.7 2.3-3.5 [facility] CenterAlbumin/Globulin Tlwea9465-42-35 10:24:00 * Test Item Value Reference Range Interpretation Comments Albumin/Globulin Ratio (test code = 1759-0) 1.3 0.8-2.0 [facility] CenterAlkaline Uppcnxgijcb8319-78-35 10:24:00* Test Item Value Reference Range Interpretation Comments Alkaline Phosphatase (test code = 6768-6) 87 40-150 [facility] CenterAmylase Tibig6720-79-15 10:24:00* Test Item Value Reference Range Interpretation Comments Amylase Level (test code = 1798-8) 101 25-125 [facility] CenterLipase2019-01-15 10:24:00* Test Item Value Reference Range Interpretation Comments Lipase (test code = 3040-3) 30 8-78 [facility] CenterAmylase Bzfbj8072-87-56 10:24:00* Test Item Value Reference Range Interpretation Comments Amylase Level (test code = 1798-8) 101 25-125 [facility] CenterAmylase Gqjoh8527-49-13 10:24:00* Test Item Value Reference Range Interpretation Comments Amylase Level (test code = 1798-8) 101 25-125 [facility] CenterAmylase Dsklr9469-02-49 10:24:00* Test Item Value Reference Range Interpretation Comments Amylase Level (test code = 1798-8) 101 25-125 [facility] CenterUrine Opiates Gjoyrc4531-59-06 10:14:00* Test Item Value Reference Range Interpretation Comments Urine Opiates Screen (test code = 01640-4) NEGATIVE NEGATIVE ALL TESTS PERFORMED MANUALLY ON [employer] TOX/SEE TESTSaint [facility]illus Medical CenterUrine Barbiturates Yihodd5267-65-76 10:14:00* Test Item Value Reference Range Interpretation Comments Urine Barbiturates Screen (test code = 777620078) NEGATIVE NEGA TIVE [facility] CenterU[facility] Phencyclidine Hiznmt5441-69-39 10:14:00* Test Item Value Reference Range Interpretation Comments Urine Phencyclidine Screen (test code = 32533-1) NEGATIVE NEGAT HENRY [facility] CenterUrine Amphetamines Ishrac7992-54-49 10:14:00* Test Item Value Reference Range Interpretation Comments Urine Amphetamines Screen (test code = 26481-5) NEGATIVE NEGATI VE [facility] CenterU[facility] Methamphetamines Imgrra0883-70-51 10:14:00* Test Item Value Reference Range Interpretation Comments Urine Methamphetamines Screen (test code = Urine Metha mphetamines Screen) NEGATIVE NEGATIVE [facility] CenterU[facility] Benzodiazepines Qqvdpx3029-51-92 10:14:00* Test Item Value Reference Range Interpretation Comments Urine Benzodiazepines Screen (test code = 12035-1) POSITIVE NEG ATIVE H This test provides only a screen. Positive results should be repeated by a confi rmatory test.[facility] Cocaine Screen 2018-06-15 10:14:00* Test Item Value Reference Range Interpretation Comments Urine Cocaine Screen (test code = 3398-5) POSITIVE NEGATIVE H This test provides only a screen. Positive results should be repeated by a confi rmatory test.[facility] Cannabinoids Screen 2018-06-15 10:14:00* Test Item Value Reference Range Interpretation Comments Urine Cannabinoids Screen (test code = 51317-7) POSITIVE NEGATI VE H This test provides only a screen. Positive results should be repeated by a confi rmatory test.[facility] Center[facility] Methadone Screen 2018-06-15 10:14:00* Test Item Value Reference Range Interpretation Comments Urine Methadone Screen (test code = 14468-9) NEGATIVE NEGATIVE THESE RESULTS ARE FOR MEDICAL TREATMENT ONLYTHIS REPORT CONTAINS UNCONFIR MED SCREENING RESULTS*POSITIVE RESULTS WILL BE CONFIRMED BY REFERENCE LAB UPON R EQUEST CUT-OFFDRUG CLASS CONCENTRATION ng/mLAmphetamines 1000Methamphetamines 1000Cocaine Metabolite 300Opiate 300Phencyc lidine 25Cannabinoid 50Barbiturates 300Benzodiazepine 300Methadone 300[facility] CenterUrine Opiates Ieypyz6636-93-66 10:14:00* Test Item Value Reference Range Interpretation Comments Urine Opiates Screen (test code = 32132-2) NEGATIVE NEGATIVE ALL TESTS PERFORMED MANUALLY ON [employer] TOX/SEE TESTSaint [facility]illus Medical CenterUrine Barbiturates Wvtemx5303-85-70 10:14:00* Test Item Value Reference Range Interpretation Comments Urine Barbiturates Screen (test code = 759881788) NEGATIVE NEGA TIVE [facility] CenterUrine Phencyclidine Qsccdi8181-31-92 10:14:00* Test Item Value Reference Range Interpretation Comments Urine Phencyclidine Screen (test code = 79281-5) NEGATIVE NEGAT HENRY [facility] CenterU[facility] Amphetamines Hsvslo7822-39-28 10:14:00* Test Item Value Reference Range Interpretation Comments Urine Amphetamines Screen (test code = 02118-4) NEGATIVE NEGATI VE [facility] CenterU[facility] Methamphetamines Mqnwqq4261-16-09 10:14:00* Test Item Value Reference Range Interpretation Comments Urine Methamphetamines Screen (test code = Urine Metha mphetamines Screen) NEGATIVE NEGATIVE [facility] Center[facility] Benzodiazepines Xmebrj2131-45-54 10:14:00* Test Item Value Reference Range Interpretation Comments Urine Benzodiazepines Screen (test code = 44643-1) POSITIVE NEG ATIVE H This test provides only a screen. Positive results should be repeated by a confi rmatory test.[facility] Cocaine Screen 2018-06-15 10:14:00* Test Item Value Reference Range Interpretation Comments Urine Cocaine Screen (test code = 3398-5) POSITIVE NEGATIVE H This test provides only a screen. Positive results should be repeated by a confi rmatory test.[facility] Cannabinoids Screen 2018-06-15 10:14:00* Test Item Value Reference Range Interpretation Comments Urine Cannabinoids Screen (test code = 83752-1) POSITIVE NEGATI VE H This test provides only a screen. Positive results should be repeated by a confi rmatory test.[facility] Center[facility] Methadone Screen 2018-06-15 10:14:00* Test Item Value Reference Range Interpretation Comments Urine Methadone Screen (test code = 70992-3) NEGATIVE NEGATIVE THESE RESULTS ARE FOR MEDICAL TREATMENT ONLYTHIS REPORT CONTAINS UNCONFIR MED SCREENING RESULTS*POSITIVE RESULTS WILL BE CONFIRMED BY REFERENCE LAB UPON R EQUEST CUT-OFFDRUG CLASS CONCENTRATION ng/mLAmphetamines 1000Methamphetamines 1000Cocaine Metabolite 300Opiate 300Phencyc lidine 25Cannabinoid 50Barbiturates 300Benzodiazepine 300Methadone 300[facility] CenterUrine Opiates Hyjpfm4916-39-87 10:14:00* Test Item Value Reference Range Interpretation Comments Urine Opiates Screen (test code = 25308-8) NEGATIVE NEGATIVE ALL TESTS PERFORMED MANUALLY ON [employer] TOX/SEE TESTSaint [facility] CenterUrine Barbiturates Kjsvnh2171-20-29 10:14:00* Test Item Value Reference Range Interpretation Comments Urine Barbiturates Screen (test code = 617072057) NEGATIVE NEGA TIVE [facility] CenterU[facility] Phencyclidine Mffioz6002-44-40 10:14:00* Test Item Value Reference Range Interpretation Comments Urine Phencyclidine Screen (test code = 37539-4) NEGATIVE NEGAT HENRY [facility] CenterU[facility] Amphetamines Bjcidf2807-95-37 10:14:00* Test Item Value Reference Range Interpretation Comments Urine Amphetamines Screen (test code = 74623-4) NEGATIVE NEGATI VE [facility] CenterU[facility] Methamphetamines Fkbczz2982-74-07 10:14:00* Test Item Value Reference Range Interpretation Comments Urine Methamphetamines Screen (test code = Urine Metha mphetamines Screen) NEGATIVE NEGATIVE [facility] CenterUrine Benzodiazepines Euhorb6929-08-97 10:14:00* Test Item Value Reference Range Interpretation Comments Urine Benzodiazepines Screen (test code = 68559-8) POSITIVE NEG ATIVE H This test provides only a screen. Positive results should be repeated by a confi rmatory test.[facility] Cocaine Screen 2018-06-15 10:14:00* Test Item Value Reference Range Interpretation Comments Urine Cocaine Screen (test code = 3398-5) POSITIVE NEGATIVE H This test provides only a screen. Positive results should be repeated by a confi rmatory test.[facility] Cannabinoids Screen 2018-06-15 10:14:00* Test Item Value Reference Range Interpretation Comments Urine Cannabinoids Screen (test code = 94077-7) POSITIVE NEGATI VE H This test provides only a screen. Positive results should be repeated by a confi rmatory test.[facility] CenterUrine Methadone Screen 2018-06-15 10:14:00* Test Item Value Reference Range Interpretation Comments Urine Methadone Screen (test code = 14096-4) NEGATIVE NEGATIVE THESE RESULTS ARE FOR MEDICAL TREATMENT ONLYTHIS REPORT CONTAINS UNCONFIR MED SCREENING RESULTS*POSITIVE RESULTS WILL BE CONFIRMED BY REFERENCE LAB UPON R EQUEST CUT-OFFDRUG CLASS CONCENTRATION ng/mLAmphetamines 1000Methamphetamines 1000Cocaine Metabolite 300Opiate 300Phencyc lidine 25Cannabinoid 50Barbiturates 300Benzodiazepine 300Methadone 300[facility] CenterUrine Opiates Zcazia9676-47-48 10:14:00* Test Item Value Reference Range Interpretation Comments Urine Opiates Screen (test code = 11020-3) NEGATIVE NEGATIVE ALL TESTS PERFORMED MANUALLY ON [employer] TOX/SEE TESTSaint [facility] CenterUrine Barbiturates Alxhek2689-59-12 10:14:00* Test Item Value Reference Range Interpretation Comments Urine Barbiturates Screen (test code = 424263602) NEGATIVE NEGA TIVE [facility] CenterU[facility] Phencyclidine Ukinua9388-17-14 10:14:00* Test Item Value Reference Range Interpretation Comments Urine Phencyclidine Screen (test code = 01235-5) NEGATIVE NEGAT HENRY [facility] CenterUrine Amphetamines Wddyqw1170-46-31 10:14:00* Test Item Value Reference Range Interpretation Comments Urine Amphetamines Screen (test code = 65242-7) NEGATIVE NEGATI VE [facility] CenterUrine Methamphetamines Zkhzqo0390-73-47 10:14:00* Test Item Value Reference Range Interpretation Comments Urine Methamphetamines Screen (test code = Urine Metha mphetamines Screen) NEGATIVE NEGATIVE [facility] CenterUrine Benzodiazepines Kdvggp2432-06-02 10:14:00* Test Item Value Reference Range Interpretation Comments Urine Benzodiazepines Screen (test code = 52839-6) POSITIVE NEG ATIVE H This test provides only a screen. Positive results should be repeated by a confi rmatory test.[facility] Cocaine Screen 2018-06-15 10:14:00* Test Item Value Reference Range Interpretation Comments Urine Cocaine Screen (test code = 3398-5) POSITIVE NEGATIVE H This test provides only a screen. Positive results should be repeated by a confi rmatory test.[facility] Cannabinoids Screen 2018-06-15 10:14:00* Test Item Value Reference Range Interpretation Comments Urine Cannabinoids Screen (test code = 31866-0) POSITIVE NEGATI VE H This test provides only a screen. Positive results should be repeated by a confi rmatory test.[facility] Center[facility] Methadone Screen 2018-06-15 10:14:00* Test Item Value Reference Range Interpretation Comments Urine Methadone Screen (test code = 35273-5) NEGATIVE NEGATIVE THESE RESULTS ARE FOR MEDICAL TREATMENT ONLYTHIS REPORT CONTAINS UNCONFIR MED SCREENING RESULTS*POSITIVE RESULTS WILL BE CONFIRMED BY REFERENCE LAB UPON R EQUEST CUT-OFFDRUG CLASS CONCENTRATION ng/mLAmphetamines 1000Methamphetamines 1000Cocaine Metabolite 300Opiate 300Phencyc lidine 25Cannabinoid 50Barbiturates 300Benzodiazepine 300Methadone 300[facility] CenterUrine Opiates Cgsvwo1517-58-17 10:14:00* Test Item Value Reference Range Interpretation Comments Urine Opiates Screen (test code = 65386-2) NEGATIVE NEGATIVE ALL TESTS PERFORMED MANUALLY ON [employer] TOX/SEE TESTSaint [facility] CenterUrine Barbiturates Rxoxyp1437-86-73 10:14:00* Test Item Value Reference Range Interpretation Comments Urine Barbiturates Screen (test code = 937945601) NEGATIVE NEGA TIVE [facility] CenterUrine Phencyclidine Jntpic3080-61-07 10:14:00* Test Item Value Reference Range Interpretation Comments Urine Phencyclidine Screen (test code = 15694-2) NEGATIVE NEGAT HENRY [facility] CenterUrine Amphetamines Xlnsvj2504-80-08 10:14:00* Test Item Value Reference Range Interpretation Comments Urine Amphetamines Screen (test code = 31199-9) NEGATIVE NEGATI VE [facility] CenterUrine Methamphetamines Eyawrt8682-90-53 10:14:00* Test Item Value Reference Range Interpretation Comments Urine Methamphetamines Screen (test code = Urine Metha mphetamines Screen) NEGATIVE NEGATIVE [facility] CenterUrine Benzodiazepines Bopebb1454-65-60 10:14:00* Test Item Value Reference Range Interpretation Comments Urine Benzodiazepines Screen (test code = 60941-4) POSITIVE NEG ATIVE H This test provides only a screen. Positive results should be repeated by a confi rmatory test.[facility] Cocaine Screen 2018-06-15 10:14:00* Test Item Value Reference Range Interpretation Comments Urine Cocaine Screen (test code = 3398-5) POSITIVE NEGATIVE H This test provides only a screen. Positive results should be repeated by a confi rmatory test.[facility] Cannabinoids Screen 2018-06-15 10:14:00* Test Item Value Reference Range Interpretation Comments Urine Cannabinoids Screen (test code = 65404-3) POSITIVE NEGATI VE H This test provides only a screen. Positive results should be repeated by a confi rmatory test.[facility] CenterU[facility] Methadone Screen 2018-06-15 10:14:00* Test Item Value Reference Range Interpretation Comments Urine Methadone Screen (test code = 32487-8) NEGATIVE NEGATIVE THESE RESULTS ARE FOR MEDICAL TREATMENT ONLYTHIS REPORT CONTAINS UNCONFIR MED SCREENING RESULTS*POSITIVE RESULTS WILL BE CONFIRMED BY REFERENCE LAB UPON R EQUEST CUT-OFFDRUG CLASS CONCENTRATION ng/mLAmphetamines 1000Methamphetamines 1000Cocaine Metabolite 300Opiate 300Phencyc lidine 25Cannabinoid 50Barbiturates 300Benzodiazepine 300Methadone 300[facility] CenterUrine Opiates Zxaxin7121-74-94 10:14:00* Test Item Value Reference Range Interpretation Comments Urine Opiates Screen (test code = 02723-1) NEGATIVE NEGATIVE ALL TESTS PERFORMED MANUALLY ON [employer] TOX/SEE TESTSaint [facility] CenterUrine Barbiturates Aqpjwz8413-26-64 10:14:00* Test Item Value Reference Range Interpretation Comments Urine Barbiturates Screen (test code = 354368272) NEGATIVE NEGA TIVE [facility] CenterU[facility] Phencyclidine Vsspvu5899-30-59 10:14:00* Test Item Value Reference Range Interpretation Comments Urine Phencyclidine Screen (test code = 44872-7) NEGATIVE NEGAT HENRY [facility] CenterUrine Amphetamines Qmymdy8787-59-78 10:14:00* Test Item Value Reference Range Interpretation Comments Urine Amphetamines Screen (test code = 12960-0) NEGATIVE NEGATI VE [facility] CenterUrine Methamphetamines Gdwloi6291-23-71 10:14:00* Test Item Value Reference Range Interpretation Comments Urine Methamphetamines Screen (test code = Urine Metha mphetamines Screen) NEGATIVE NEGATIVE [facility] CenterU[facility] Benzodiazepines Euemod7019-74-30 10:14:00* Test Item Value Reference Range Interpretation Comments Urine Benzodiazepines Screen (test code = 68333-3) POSITIVE NEG ATIVE H This test provides only a screen. Positive results should be repeated by a confi rmatory test.[facility] Cocaine Screen 2018-06-15 10:14:00* Test Item Value Reference Range Interpretation Comments Urine Cocaine Screen (test code = 3398-5) POSITIVE NEGATIVE H This test provides only a screen. Positive results should be repeated by a confi rmatory test.[facility] Cannabinoids Screen 2018-06-15 10:14:00* Test Item Value Reference Range Interpretation Comments Urine Cannabinoids Screen (test code = 64997-4) POSITIVE NEGATI VE H This test provides only a screen. Positive results should be repeated by a confi rmatory test.[facility] Center[facility] Methadone Screen 2018-06-15 10:14:00* Test Item Value Reference Range Interpretation Comments Urine Methadone Screen (test code = 73973-5) NEGATIVE NEGATIVE THESE RESULTS ARE FOR MEDICAL TREATMENT ONLYTHIS REPORT CONTAINS UNCONFIR MED SCREENING RESULTS*POSITIVE RESULTS WILL BE CONFIRMED BY REFERENCE LAB UPON R EQUEST CUT-OFFDRUG CLASS CONCENTRATION ng/mLAmphetamines 1000Methamphetamines 1000Cocaine Metabolite 300Opiate 300Phencyc lidine 25Cannabinoid 50Barbiturates 300Benzodiazepine 300Methadone 300[facility]Urine Ejmsk2427-67-54 10:12:00* Test Item Value Reference Range Interpretation Comments Urine Color (test code = 5778-6) YELLOW YELLOW [facility] CenterU[facility] Zvkqoeo4675-18-48 10:12:00* Test Item Value Reference Range Interpretation Comments Urine Clarity (test code = 77123-4) CLEAR CLEAR [facility] CenterU[facility] Specific Hyxzkld3377-03-85 10:12:00 * Test Item Value Reference Range Interpretation Comments Urine Specific [place] (test code = 5811-5) 1.010 1.010-1.02 5 [facility] CenterU[facility] kR3698-90-96 10:12:00* Test Item Value Reference Range Interpretation Comments Urine pH (test code = 89424-2) 6 5-7 [facility] Leukocyte Zscpbosy6802-09-48 10:12:00* Test Item Value Reference Range Interpretation Comments Urine Leukocyte Esterase (test code = 5799-2) TRACE NEGATIVE H [facility] Zqlltfg1312-53-40 10:12:00* Test Item Value Reference Range Interpretation Comments Urine Nitrite (test code = 34920-8) NEGATIVE NEGATIVE [facility] Gzcbjlh2454-92-28 10:12:00* Test Item Value Reference Range Interpretation Comments Urine Protein (test code = 5804-0) NEGATIVE NEGATIVE [facility] CenterU[facility] Glucose (UA)2018-06-15 10:12:00* Test Item Value Reference Range Interpretation Comments Urine Glucose (UA) (test code = 2349-9) NEGATIVE NEGATIVE [facility] CenterU[facility] Lbywmzu7819-67-34 10:12:00* Test Item Value Reference Range Interpretation Comments Urine Ketones (test code = 17350-0) NEGATIVE NEGATIVE [facility] Uibklesmvcdn5914-55-05 10:12:00* Test Item Value Reference Range Interpretation Comments Urine Urobilinogen (test code = 31940-9) 0.2 0.2-1 [facility] Qpwqyzqji7119-31-53 10:12:00* Test Item Value Reference Range Interpretation Comments Urine Bilirubin (test code = 1978-6) NEGATIVE NEGATIVE [facility] Xzuio9083-80-68 10:12:00* Test Item Value Reference Range Interpretation Comments Urine Blood (test code = 16583-4) NEGATIVE NEGATIVE [facility] CenterWhite Blood Exwhf4208-64-03 10:11:00* Test Item Value Reference Range Interpretation Comments White Blood Count (test code = 6690-2) 4.92 4.8-10.8 [facility] CenterRed Blood Oyjlw9277-84-99 10:11:00* Test Item Value Reference Range Interpretation Comments Red Blood Count (test code = 789-8) 4.31 3.6-5.1 [facility] CenterHemoglobin2019-01-15 10:11:00* Test Item Value Reference Range Interpretation Comments Hemoglobin (test code = 78732-4) 12.7 12.0-16.0 [facility] CenterHematocrit2019-01-15 10:11:00* Test Item Value Reference Range Interpretation Comments Hematocrit (test code = 4544-3) 38.1 34.2-44.1 [facility] CenterMean Corpuscular Qkvhqc3304-70-36 10:11:00* Test Item Value Reference Range Interpretation Comments Mean Corpuscular Volume (test code = 787-2) 88.4 81-99 [facility] CenterMean Corpuscular Pngmnydlyk3649-80-37 10:11:00* Test Item Value Reference Range Interpretation Comments Mean Corpuscular Hemoglobin (test code = 785-6) 29.5 28-32 [facility] CenterMean Corpuscular Hemoglobin Concent 2018-06-15 10:11:00* Test Item Value Reference Range Interpretation Comments Mean Corpuscular Hemoglobin Concent (test code = 786-4) 33.3 31-35 [facility] CenterRed Cell Distribution Jyeps5839-12-29 10:11:00* Test Item Value Reference Range Interpretation Comments Red Cell Distribution Width (test code = 39410-7) 13.5 11.7 -14.4 [facility] CenterPlatelet Fzusd5191-78-69 10:11:00* Test Item Value Reference Range Interpretation Comments Platelet Count (test code = 777-3) 297 140-360 [facility] CenterNeutrophils (%) (Auto)2018-06-15 10:11:00 * Test Item Value Reference Range Interpretation Comments Neutrophils (%) (Auto) (test code = 39695-0) 60.6 38.7-80.0 [facility] CenterLymphocytes (%) (Auto)2018-06-15 10:11:00 * Test Item Value Reference Range Interpretation Comments Lymphocytes (%) (Auto) (test code = 736-9) 28.9 18.0-39.1 [facility] CenterMonocytes (%) (Auto)2018-06-15 10:11:00* Test Item Value Reference Range Interpretation Comments Monocytes (%) (Auto) (test code = 5905-5) 6.7 4.4-11.3 [facility] CenterEosinophils (%) (Auto)2018-06-15 10:11:00 * Test Item Value Reference Range Interpretation Comments Eosinophils (%) (Auto) (test code = 713-8) 1.6 0.0-6.0 [facility] CenterBasophils (%) (Auto)2018-06-15 10:11:00* Test Item Value Reference Range Interpretation Comments Basophils (%) (Auto) (test code = 706-2) 1.0 0.0-1.0 [facility] CenterIM GRANULOCYTES %2018-06-15 10:11:00* Test Item Value Reference Range Interpretation Comments IM GRANULOCYTES % (test code = IM GRANULOCYTES %) 1.2 0.0- 1.0 H [facility] CenterNeutrophils # (Auto)2018-06-15 10:11:00* Test Item Value Reference Range Interpretation Comments Neutrophils # (Auto) (test code = 751-8) 3.0 2.1-6.9 [facility] CenterLymphocytes # (Auto)2018-06-15 10:11:00* Test Item Value Reference Range Interpretation Comments Lymphocytes # (Auto) (test code = 51867-7) 1.4 1.0-3.2 [facility] CenterMonocytes # (Auto)2018-06-15 10:11:00* Test Item Value Reference Range Interpretation Comments Monocytes # (Auto) (test code = 742-7) 0.3 0.2-0.8 [facility] CenterEosinophils # (Auto)2018-06-15 10:11:00* Test Item Value Reference Range Interpretation Comments Eosinophils # (Auto) (test code = 711-2) 0.1 0.0-0.4 [facility] CenterBasophils # (Auto)2018-06-15 10:11:00* Test Item Value Reference Range Interpretation Comments Basophils # (Auto) (test code = 704-7) 0.1 0.0-0.1 [facility] CenterAbsolute Immature Granulocyte (auto 2018-06-15 10:11:00* Test Item Value Reference Range Interpretation Comments Absolute Immature Granulocyte (auto (alexa t code = Absolute Immature Granulocyte (auto) 0.06 0-0.1 [facility] CenterUrine Hszepjz8111-82-24 10:44:00* Test Item Value Reference Range Interpretation Comments Urine Culture (test code = 630-4) Organism: ESCHERICHIA COLI [facility] CenterUrine Kzlgcrr7478-60-28 10:44:00* Test Item Value Reference Range Interpretation Comments Urine Culture (test code = 630-4) Organism: ESCHERICHIA COLI [facility] CenterUrine Fqduqye7681-98-32 10:44:00* Test Item Value Reference Range Interpretation Comments Urine Culture (test code = 630-4) Organism: ESCHERICHIA COLI [facility] CenterUrine Yzqjvud3004-11-50 10:44:00* Test Item Value Reference Range Interpretation Comments Urine Culture (test code = 630-4) Organism: ESCHERICHIA COLI [facility] CenterCT ABDOMEN/PELVIS DJ9713-64-22 11:29:00 [facility] [address] [place] [address] Patient Name: ANGELA ESPINOSA MR #: [id number] : 1975 Age/Sex: 42/F Req #: [id number] Adm Physician: Ordered by: EROS SIDHU MD Report #: [id number] Location: ER Room/Bed: Procedure: 2019-0002 CT/CT ABDOMEN/PELVIS WO Exam Date: 06/03/18 Exam [...] 1136 COPY TO: EROS SIDHU MD Sodium Hxqic5202-36-98 10:03:00* Test Item Value Reference Range Interpretation Comments Sodium Level (test code = 2951-2) 134 136-145 L [facility] CenterPotassium Aorye8273-66-09 10:03:00* Test Item Value Reference Range Interpretation Comments Potassium Level (test code = 2823-3) 3.7 3.5-5.1 [facility] CenterChloride Hvvqt4839-43-51 10:03:00* Test Item Value Reference Range Interpretation Comments Chloride Level (test code = 2075-0) 103 98-107 [facility] CenterCarbon Dioxide Ngfdz6118-54-76 10:03:00* Test Item Value Reference Range Interpretation Comments Carbon Dioxide Level (test code = 2028-9) 24 22-29 [facility] CenterAnion Dyh5233-25-70 10:03:00* Test Item Value Reference Range Interpretation Comments Anion Gap (test code = 36948-5) 10.7 8-16 [facility] CenterBlood Urea Kxrhldxo5269-78-18 10:03:00* Test Item Value Reference Range Interpretation Comments Blood Urea Nitrogen (test code = 3094-0) 10 7-26 [facility] CenterCreatinine2019-01-03 10:03:00* Test Item Value Reference Range Interpretation Comments Creatinine (test code = 2160-0) 0.82 0.57-1.11 [facility] CenterBUN/Creatinine Dfisn3762-87-01 10:03:00* Test Item Value Reference Range Interpretation Comments BUN/Creatinine Ratio (test code = 3097-3) 12 6-25 [facility] CenterEstimat Glomerular Filtration Rate 2018-06-03 10:03:00* Test Item Value Reference Range Interpretation Comments Estimat Glomerular Filtration Rate (test code = 145389868) > 60 >60 Ranges were taken from the National Kidney Disease Education Program and the [facility] literature.Reference ranges:60 or greater: Lakwda94-31 ( for 3 consecutive months): Chronic kidney disease 15 or less: Kidney failureCHI [facility] Trans[facility] CampusGlucose Sbkaq7061-52-49 10:03:00* Test Item Value Reference Range Interpretation Comments Glucose Level (test code = FNT7189) 96 74-118 [facility] CenterCalcium Ihjyk1153-77-76 10:03:00* Test Item Value Reference Range Interpretation Comments Calcium Level (test code = 79018-4) 8.9 8.4-10.2 [facility] CenterMagnesium Hqmnt6605-75-97 10:03:00* Test Item Value Reference Range Interpretation Comments Magnesium Level (test code = 44413-7) 1.9 1.3-2.1 [facility] CenterTotal Okpfhxbvm8286-38-70 10:03:00* Test Item Value Reference Range Interpretation Comments Total Bilirubin (test code = 1975-2) 0.5 0.2-1.2 [facility] CenterAspartate Amino Transf (AST/SGOT) 2018-06-03 10:03:00* Test Item Value Reference Range Interpretation Comments Aspartate Amino Transf (AST/SGOT) (test code = Aspartate Amino Transf (AST/SGOT)) 14 5-34 [facility] CenterAlanine Aminotransferase (ALT/SGPT) 2018-06-03 10:03:00* Test Item Value Reference Range Interpretation Comments Alanine Aminotransferase (ALT/SGPT) (test code = 1742-6) 19 0-55 [facility] CenterTotal Ukutpih4784-86-94 10:03:00* Test Item Value Reference Range Interpretation Comments Total Protein (test code = 2885-2) 6.3 6.5-8.1 L [facility] CenterAlbumin2019-01-03 10:03:00* Test Item Value Reference Range Interpretation Comments Albumin (test code = 1751-7) 3.5 3.5-5.0 [facility] CenterGlobulin2019-01-03 10:03:00* Test Item Value Reference Range Interpretation Comments Globulin (test code = 77038-5) 2.8 2.3-3.5 [facility] CenterAlbumin/Globulin Gkjav0511-44-50 10:03:00 * Test Item Value Reference Range Interpretation Comments Albumin/Globulin Ratio (test code = 1759-0) 1.3 0.8-2.0 [facility] CenterAlkaline Bjimzdmhgrf6982-01-46 10:03:00* Test Item Value Reference Range Interpretation Comments Alkaline Phosphatase (test code = 6768-6) 84 40-150 [facility] CenterMagnesium Ptnhg6303-96-69 10:03:00* Test Item Value Reference Range Interpretation Comments Magnesium Level (test code = 80221-8) 1.9 1.3-2.1 [facility] Ecspz2687-24-26 10:03:00* Test Item Value Reference Range Interpretation Comments Magnesium Level (test code = 75843-0) 1.9 1.3-2.1 [facility]erg[facility] Stsis2873-80-36 10:03:00* Test Item Value Reference Range Interpretation Comments Magnesium Level (test code = 24379-9) 1.9 1.3-2.1 [facility]erg[facility] Hlwax3750-31-25 10:03:00* Test Item Value Reference Range Interpretation Comments Magnesium Level (test code = 19973-0) 1.9 1.3-2.1 [facility] CenterWhite Blood Kzyyd2095-42-11 09:37:00* Test Item Value Reference Range Interpretation Comments White Blood Count (test code = 6690-2) 5.42 4.8-10.8 [facility] CenterRed Blood Vgmsr3467-48-57 09:37:00* Test Item Value Reference Range Interpretation Comments Red Blood Count (test code = 789-8) 4.21 3.6-5.1 [facility] CenterHemoglobin2019-01-03 09:37:00* Test Item Value Reference Range Interpretation Comments Hemoglobin (test code = 27582-8) 12.5 12.0-16.0 [facility] CenterHematocrit2019-01-03 09:37:00* Test Item Value Reference Range Interpretation Comments Hematocrit (test code = 4544-3) 36.6 34.2-44.1 [facility] CenterMean Corpuscular Lbsyze2444-38-79 09:37:00* Test Item Value Reference Range Interpretation Comments Mean Corpuscular Volume (test code = 787-2) 86.9 81-99 [facility] CenterMean Corpuscular Dtblhpxtal3103-19-93 09:37:00* Test Item Value Reference Range Interpretation Comments Mean Corpuscular Hemoglobin (test code = 785-6) 29.7 28-32 [facility] CenterMean Corpuscular Hemoglobin Concent 2018-06-03 09:37:00* Test Item Value Reference Range Interpretation Comments Mean Corpuscular Hemoglobin Concent (test code = 786-4) 34.2 31-35 [facility] CenterRed Cell Distribution Bzqba6776-71-12 09:37:00* Test Item Value Reference Range Interpretation Comments Red Cell Distribution Width (test code = 93983-3) 13.3 11.7 -14.4 [facility] CenterPlatelet Ebpvr6051-90-18 09:37:00* Test Item Value Reference Range Interpretation Comments Platelet Count (test code = 777-3) 237 140-360 [facility] CenterNeutrophils (%) (Auto)2018-06-03 09:37:00 * Test Item Value Reference Range Interpretation Comments Neutrophils (%) (Auto) (test code = 79645-4) 65.3 38.7-80.0 [facility] CenterLymphocytes (%) (Auto)2018-06-03 09:37:00 * Test Item Value Reference Range Interpretation Comments Lymphocytes (%) (Auto) (test code = 736-9) 26.9 18.0-39.1 [facility] CenterMonocytes (%) (Auto)2018-06-03 09:37:00* Test Item Value Reference Range Interpretation Comments Monocytes (%) (Auto) (test code = 5905-5) 5.2 4.4-11.3 [facility] CenterEosinophils (%) (Auto)2018-06-03 09:37:00 * Test Item Value Reference Range Interpretation Comments Eosinophils (%) (Auto) (test code = 713-8) 1.5 0.0-6.0 [facility] CenterBasophils (%) (Auto)2018-06-03 09:37:00* Test Item Value Reference Range Interpretation Comments Basophils (%) (Auto) (test code = 706-2) 0.7 0.0-1.0 [facility] CenterIM GRANULOCYTES %2018-06-03 09:37:00* Test Item Value Reference Range Interpretation Comments IM GRANULOCYTES % (test code = IM GRANULOCYTES %) 0.4 0.0- 1.0 [facility] CenterNeutrophils # (Auto)2018-06-03 09:37:00* Test Item Value Reference Range Interpretation Comments Neutrophils # (Auto) (test code = 751-8) 3.5 2.1-6.9 [facility] CenterLymphocytes # (Auto)2018-06-03 09:37:00* Test Item Value Reference Range Interpretation Comments Lymphocytes # (Auto) (test code = 34677-4) 1.5 1.0-3.2 [facility] CenterMonocytes # (Auto)2018-06-03 09:37:00* Test Item Value Reference Range Interpretation Comments Monocytes # (Auto) (test code = 742-7) 0.3 0.2-0.8 [facility] CenterEosinophils # (Auto)2018-06-03 09:37:00* Test Item Value Reference Range Interpretation Comments Eosinophils # (Auto) (test code = 711-2) 0.1 0.0-0.4 [facility] CenterBasophils # (Auto)2018-06-03 09:37:00* Test Item Value Reference Range Interpretation Comments Basophils # (Auto) (test code = 704-7) 0.0 0.0-0.1 [facility] CenterAbsolute Immature Granulocyte (auto 2018-06-03 09:37:00* Test Item Value Reference Range Interpretation Comments Absolute Immature Granulocyte (auto (alexa t code = Absolute Immature Granulocyte (auto) 0.02 0-0.1 [facility] CenterUrine HNF3718-30-28 09:22:00* Test Item Value Reference Range Interpretation Comments Urine WBC (test code = 5821-4) 0-5 0-5 [facility] CenterUrine JAQ9726-29-98 09:22:00* Test Item Value Reference Range Interpretation Comments Urine RBC (test code = 80676-9) NONE 0-5 [facility] CenterUrine Qomirktq0205-41-18 09:22:00* Test Item Value Reference Range Interpretation Comments Urine Bacteria (test code = 01811-6) MODERATE NONE H [facility] CenterUrine Epithelial Ualbh1890-16-15 09:22:00 * Test Item Value Reference Range Interpretation Comments Urine Epithelial Cells (test code = 20323-0) RARE NONE [facility] CenterUrine Qhxid7338-07-89 09:11:00* Test Item Value Reference Range Interpretation Comments Urine Color (test code = 5778-6) YELLOW YELLOW [facility] CenterUrine Gbunyqv8903-24-70 09:11:00* Test Item Value Reference Range Interpretation Comments Urine Clarity (test code = 91419-8) SL CLOUDY CLEAR [facility] CenterUrine Specific Yidzfpr7659-77-62 09:11:00 * Test Item Value Reference Range Interpretation Comments Urine Specific [place] (test code = 5811-5) 1.010 1.010-1.02 5 [facility] CenterUrine mW8546-07-30 09:11:00* Test Item Value Reference Range Interpretation Comments Urine pH (test code = 45095-6) 6.5 5-7 [facility] CenterUrine Leukocyte Dpgixwpr0880-07-01 09:11:00* Test Item Value Reference Range Interpretation Comments Urine Leukocyte Esterase (test code = 5799-2) TRACE NEGATIVE H [facility] CenterUrine Iijrcgm2478-09-77 09:11:00* Test Item Value Reference Range Interpretation Comments Urine Nitrite (test code = 86621-1) NEGATIVE NEGATIVE [facility] CenterUrine Hrcdycu9585-01-75 09:11:00* Test Item Value Reference Range Interpretation Comments Urine Protein (test code = 5804-0) NEGATIVE NEGATIVE [facility] CenterUrine Glucose (UA)2018-06-03 09:11:00* Test Item Value Reference Range Interpretation Comments Urine Glucose (UA) (test code = 2349-9) NEGATIVE NEGATIVE [facility] CenterUrine Jdliwet9190-64-45 09:11:00* Test Item Value Reference Range Interpretation Comments Urine Ketones (test code = 65567-7) NEGATIVE NEGATIVE [facility] Izcqpvupubxw6203-30-68 09:11:00* Test Item Value Reference Range Interpretation Comments Urine Urobilinogen (test code = 29115-4) 0.2 0.2-1 [facility] CenterUrine Rydrezjlz6079-60-51 09:11:00* Test Item Value Reference Range Interpretation Comments Urine Bilirubin (test code = 1978-6) NEGATIVE NEGATIVE [facility] CenterUrine Rjquc8260-07-66 09:11:00* Test Item Value Reference Range Interpretation Comments Urine Blood (test code = 71818-5) NEGATIVE NEGATIVE [facility] CenterUrine Iynp3736-96-32 09:11:00* Test Item Value Reference Range Interpretation Comments Urine Test (test code = 2106-3) NEGATIVE NEGATIVE [facility] CenterU[facility] Fovv4949-68-78 09:11:00* Test Item Value Reference Range Interpretation Comments Urine Test (test code = 2106-3) NEGATIVE NEGATIVE [facility] CenterU[facility] Egkq8635-53-76 09:11:00* Test Item Value Reference Range Interpretation Comments Urine Test (test code = 2106-3) NEGATIVE NEGATIVE [facility] CenterU[facility] Rbxp0284-44-15 09:11:00* Test Item Value Reference Range Interpretation Comments Urine Test (test code = 2106-3) NEGATIVE NEGATIVE [facility] CenterU[facility] Tpwx7622-06-96 09:11:00* Test Item Value Reference Range Interpretation Comments Urine Test (test code = 2106-3) NEGATIVE NEGATIVE [facility] CenterU[facility] Jgqi0150-13-11 09:11:00* Test Item Value Reference Range Interpretation Comments Urine Test (test code = 2106-3) NEGATIVE NEGATIVE [facility] CenterU[facility] Btuq3639-72-37 09:11:00* Test Item Value Reference Range Interpretation Comments Urine Test (test code = 2106-3) NEGATIVE NEGATIVE [facility] CenterUrine Opiates Uncysb4584-01-77 11:04:00* Test Item Value Reference Range Interpretation Comments Urine Opiates Screen (test code = 55934-4) NEGATIVE NEGATIVE ALL TESTS PERFORMED MANUALLY ON [employer] TOX/SEE TESTSaint [facility] Medical CenterUrine Barbiturates Xaikta2271-68-58 11:04:00* Test Item Value Reference Range Interpretation Comments Urine Barbiturates Screen (test code = 818696029) NEGATIVE NEGA TIVE [facility] CenterU[facility] Phencyclidine Yqvjqa3005-09-30 11:04:00* Test Item Value Reference Range Interpretation Comments Urine Phencyclidine Screen (test code = 89309-1) NEGATIVE NEGAT HENRY [facility] CenterU[facility] Amphetamines Wjenlr3070-73-96 11:04:00* Test Item Value Reference Range Interpretation Comments Urine Amphetamines Screen (test code = 35244-4) NEGATIVE NEGATI VE [facility] CenterU[facility] Methamphetamines Rebmor9517-13-59 11:04:00* Test Item Value Reference Range Interpretation Comments Urine Methamphetamines Screen (test code = Urine Metha mphetamines Screen) NEGATIVE NEGATIVE [facility] CenterU[facility] Benzodiazepines Mnzbkr2968-38-64 11:04:00* Test Item Value Reference Range Interpretation Comments Urine Benzodiazepines Screen (test code = 47118-2) POSITIVE NEG ATIVE H This test provides only a screen. Positive results should be repeated by a confi rmatory test.[facility] CenterUrine Cocaine Screen 2018-04-28 11:04:00* Test Item Value Reference Range Interpretation Comments Urine Cocaine Screen (test code = 3398-5) NEGATIVE NEGATIVE [facility] CenterU[facility] Cannabinoids Doyewk1482-38-88 11:04:00* Test Item Value Reference Range Interpretation Comments Urine Cannabinoids Screen (test code = 79470-9) POSITIVE NEGATI VE H This test provides only a screen. Positive results should be repeated by a confi rmatory test.[facility] CenterU[facility] Methadone Screen 2018-04-28 11:04:00* Test Item Value Reference Range Interpretation Comments Urine Methadone Screen (test code = 80817-8) NEGATIVE NEGATIVE THESE RESULTS ARE FOR MEDICAL TREATMENT ONLYTHIS REPORT CONTAINS UNCONFIR MED SCREENING RESULTS*POSITIVE RESULTS WILL BE CONFIRMED BY REFERENCE LAB UPON R EQUEST CUT-OFFDRUG CLASS CONCENTRATION ng/mLAmphetamines 1000Methamphetamines 1000Cocaine Metabolite 300Opiate 300Phencyc lidine 25Cannabinoid 50Barbiturates 300Benzodiazepine 300Methadone 300[facility] CenterUrine Opiates Orzree8864-73-55 11:04:00* Test Item Value Reference Range Interpretation Comments Urine Opiates Screen (test code = 76037-3) NEGATIVE NEGATIVE ALL TESTS PERFORMED MANUALLY ON [employer] TOX/SEE TESTSaint [facility] Medical CenterUrine Barbiturates Gwnwfn8337-54-75 11:04:00* Test Item Value Reference Range Interpretation Comments Urine Barbiturates Screen (test code = 724243046) NEGATIVE NEGA TIVE [facility] CenterU[facility] Phencyclidine Jvaksb9051-12-86 11:04:00* Test Item Value Reference Range Interpretation Comments Urine Phencyclidine Screen (test code = 79776-3) NEGATIVE NEGAT HENRY [facility] CenterU[facility] Amphetamines Xbkbmd4117-99-95 11:04:00* Test Item Value Reference Range Interpretation Comments Urine Amphetamines Screen (test code = 63518-4) NEGATIVE NEGATI VE [facility] CenterU[facility] Methamphetamines Zapsth8038-74-15 11:04:00* Test Item Value Reference Range Interpretation Comments Urine Methamphetamines Screen (test code = Urine Metha mphetamines Screen) NEGATIVE NEGATIVE [facility] CenterU[facility] Benzodiazepines Zfgxjo7917-57-12 11:04:00* Test Item Value Reference Range Interpretation Comments Urine Benzodiazepines Screen (test code = 15620-2) POSITIVE NEG ATIVE H This test provides only a screen. Positive results should be repeated by a confi rmatory test.[facility] CenterU[facility] Cocaine Screen 2018-04-28 11:04:00* Test Item Value Reference Range Interpretation Comments Urine Cocaine Screen (test code = 3398-5) NEGATIVE NEGATIVE [facility] CenterUrine Cannabinoids Votsqx2511-34-20 11:04:00* Test Item Value Reference Range Interpretation Comments Urine Cannabinoids Screen (test code = 83082-1) POSITIVE NEGATI VE H This test provides only a screen. Positive results should be repeated by a confi rmatory test.[facility] CenterUrine Methadone Screen 2018-04-28 11:04:00* Test Item Value Reference Range Interpretation Comments Urine Methadone Screen (test code = 80788-5) NEGATIVE NEGATIVE THESE RESULTS ARE FOR MEDICAL TREATMENT ONLYTHIS REPORT CONTAINS UNCONFIR MED SCREENING RESULTS*POSITIVE RESULTS WILL BE CONFIRMED BY REFERENCE LAB UPON R EQUEST CUT-OFFDRUG CLASS CONCENTRATION ng/mLAmphetamines 1000Methamphetamines 1000Cocaine Metabolite 300Opiate 300Phencyc lidine 25Cannabinoid 50Barbiturates 300Benzodiazepine 300Methadone 300[facility]odium Hsesf8699-29-14 09:47:00* Test Item Value Reference Range Interpretation Comments Sodium Level (test code = 2951-2) 134 136-145 L [facility] CenterPotassium Ujcih0112-92-79 09:47:00* Test Item Value Reference Range Interpretation Comments Potassium Level (test code = 2823-3) 3.9 3.5-5.1 [facility] CenterChloride Emtra3168-31-74 09:47:00* Test Item Value Reference Range Interpretation Comments Chloride Level (test code = 2075-0) 103 98-107 [facility] CenterCarbon Dioxide Qhgvz1164-91-44 09:47:00* Test Item Value Reference Range Interpretation Comments Carbon Dioxide Level (test code = 2028-9) 23 22-29 [facility] CenterAnion Sla0906-79-66 09:47:00* Test Item Value Reference Range Interpretation Comments Anion Gap (test code = 75970-8) 11.9 8-16 [facility] CenterBlood Urea Iwkuoyzd0343-47-52 09:47:00* Test Item Value Reference Range Interpretation Comments Blood Urea Nitrogen (test code = 3094-0) 11 7-26 [facility] CenterCreatinine2018-11-28 09:47:00* Test Item Value Reference Range Interpretation Comments Creatinine (test code = 2160-0) 0.84 0.57-1.11 [facility] CenterBUN/Creatinine Ggetv0096-84-70 09:47:00* Test Item Value Reference Range Interpretation Comments BUN/Creatinine Ratio (test code = 3097-3) 13 6- [facility] CenterEstimat Glomerular Filtration Rate 2018-04-28 09:47:00* Test Item Value Reference Range Interpretation Comments Estimat Glomerular Filtration Rate (test code = 499561998) > 60 >60 Ranges were taken from the National Kidney Disease Education Program and the [facility] Foundation literature.Reference ranges:60 or greater: Glunpq80-13 ( for 3 consecutive months): Chronic kidney disease 15 or less: Kidney failureSaint [facility]illus Medical CenterGlucose Qderg8302-23-14 09:47:00* Test Item Value Reference Range Interpretation Comments Glucose Level (test code = PFW2878) 121 74-118 H [facility] CenterCalcium Ytymy1776-52-01 09:47:00* Test Item Value Reference Range Interpretation Comments Calcium Level (test code = 25402-7) 9.1 8.4-10.2 [facility] CenterTotal Mfsevubri9437-20-28 09:47:00* Test Item Value Reference Range Interpretation Comments Total Bilirubin (test code = 1975-2) 0.3 0.2-1.2 [facility] CenterAspartate Amino Transf (AST/SGOT) 2018-04-28 09:47:00* Test Item Value Reference Range Interpretation Comments Aspartate Amino Transf (AST/SGOT) (test code = Aspartate Amino Transf (AST/SGOT)) 19 5-34 [facility] CenterAlanine Aminotransferase (ALT/SGPT) 2018-04-28 09:47:00* Test Item Value Reference Range Interpretation Comments Alanine Aminotransferase (ALT/SGPT) (test code = 1742-6) 27 0-55 [facility] CenterTotal Nauvcxy1013-88-24 09:47:00* Test Item Value Reference Range Interpretation Comments Total Protein (test code = 2885-2) 6.9 6.5-8.1 [facility] CenterAlbumin2018-11-28 09:47:00* Test Item Value Reference Range Interpretation Comments Albumin (test code = 1751-7) 3.6 3.5-5.0 [facility] CenterGlobulin2018-11-28 09:47:00* Test Item Value Reference Range Interpretation Comments Globulin (test code = 83048-4) 3.3 2.3-3.5 [facility] CenterAlbumin/Globulin Gxakm8176-17-60 09:47:00 * Test Item Value Reference Range Interpretation Comments Albumin/Globulin Ratio (test code = 1759-0) 1.1 0.8-2.0 [facility] CenterAlkaline Xhwjdtnscfq8710-71-05 09:47:00* Test Item Value Reference Range Interpretation Comments Alkaline Phosphatase (test code = 6768-6) 108 40-150 [facility] CenterLipase2018-11-28 09:47:00* Test Item Value Reference Range Interpretation Comments Lipase (test code = 3040-3) [facility] CenterLipase2018-11-28 09:47:00* Test Item Value Reference Range Interpretation Comments Lipase (test code = 3040-3) [facility] CenterUrine CHW5858-23-91 09:07:00* Test Item Value Reference Range Interpretation Comments Urine WBC (test code = 5821-4) 0-5 0-5 [facility] CenterUrine WQS6075-90-51 09:07:00* Test Item Value Reference Range Interpretation Comments Urine RBC (test code = 10370-0) 0-5 0-5 [facility] CenterUrine Fvobjzkf7852-11-93 09:07:00* Test Item Value Reference Range Interpretation Comments Urine Bacteria (test code = 38233-7) MODERATE NONE H [facility] CenterUrine Epithelial Qzxbs3509-24-99 09:07:00 * Test Item Value Reference Range Interpretation Comments Urine Epithelial Cells (test code = 85119-8) MODERATE NONE [facility] CenterUrine Ldvtp5097-30-09 09:03:00* Test Item Value Reference Range Interpretation Comments Urine Color (test code = 5778-6) YELLOW YELLOW [facility] CenterUrine Rzsgoux4723-26-96 09:03:00* Test Item Value Reference Range Interpretation Comments Urine Clarity (test code = 02966-6) HAZY CLEAR [facility] Specific Bqhpywr3992-57-75 09:03:00 * Test Item Value Reference Range Interpretation Comments Urine Specific [place] (test code = 5811-5) 1.005 1.010-1.02 5 L [facility] CenterUrine sM3747-50-18 09:03:00* Test Item Value Reference Range Interpretation Comments Urine pH (test code = 65026-0) 6 5-7 [facility] CenterUrine Leukocyte Dezjgyrq1389-31-25 09:03:00* Test Item Value Reference Range Interpretation Comments Urine Leukocyte Esterase (test code = 5799-2) NEGATIVE NEGATIVE [facility] Fyxhwvh5153-31-57 09:03:00* Test Item Value Reference Range Interpretation Comments Urine Nitrite (test code = 35418-1) NEGATIVE NEGATIVE [facility] CenterUrine Cwotjeq3549-86-56 09:03:00* Test Item Value Reference Range Interpretation Comments Urine Protein (test code = 5804-0) NEGATIVE NEGATIVE [facility] CenterUrine Glucose (UA)2018-04-28 09:03:00* Test Item Value Reference Range Interpretation Comments Urine Glucose (UA) (test code = 2349-9) NEGATIVE NEGATIVE [facility] CenterUrine Csjlcfc7808-19-20 09:03:00* Test Item Value Reference Range Interpretation Comments Urine Ketones (test code = 67962-7) NEGATIVE NEGATIVE [facility] CenterUrine Skmmelfjepfh1233-91-68 09:03:00* Test Item Value Reference Range Interpretation Comments Urine Urobilinogen (test code = 73010-0) 0.2 0.2-1 [facility] CenterUrine Celbvezxw9157-50-39 09:03:00* Test Item Value Reference Range Interpretation Comments Urine Bilirubin (test code = 1978-6) NEGATIVE NEGATIVE [facility] CenterUrine Eaequ5108-03-11 09:03:00* Test Item Value Reference Range Interpretation Comments Urine Blood (test code = 84789-6) NEGATIVE NEGATIVE [facility] CenterWhite Blood Kerve9106-35-50 09:00:00* Test Item Value Reference Range Interpretation Comments White Blood Count (test code = 6690-2) 5.83 4.8-10.8 [facility] CenterRed Blood Jifjo7565-06-27 09:00:00* Test Item Value Reference Range Interpretation Comments Red Blood Count (test code = 789-8) 4.39 3.6-5.1 [facility] CenterHemoglobin2018-11-28 09:00:00* Test Item Value Reference Range Interpretation Comments Hemoglobin (test code = 18184-5) 13.1 12.0-16.0 [facility] CenterHematocrit2018-11-28 09:00:00* Test Item Value Reference Range Interpretation Comments Hematocrit (test code = 4544-3) 38.6 34.2-44.1 [facility] CenterMean Corpuscular Fcbzic7448-35-40 09:00:00* Test Item Value Reference Range Interpretation Comments Mean Corpuscular Volume (test code = 787-2) 87.9 81-99 [facility] CenterMean Corpuscular Mguhudgvdk6074-80-47 09:00:00* Test Item Value Reference Range Interpretation Comments Mean Corpuscular Hemoglobin (test code = 785-6) 29.8 28-32 [facility] CenterMean Corpuscular Hemoglobin Concent 2018-04-28 09:00:00* Test Item Value Reference Range Interpretation Comments Mean Corpuscular Hemoglobin Concent (test code = 786-4) 33.9 31-35 [facility] CenterRed Cell Distribution Ruwlr5957-20-10 09:00:00* Test Item Value Reference Range Interpretation Comments Red Cell Distribution Width (test code = 79531-9) 13.8 11.7 -14.4 [facility] CenterPlatelet Wlmli0493-11-76 09:00:00* Test Item Value Reference Range Interpretation Comments Platelet Count (test code = 777-3) 249 140-360 [facility] CenterNeutrophils (%) (Auto)2018-04-28 09:00:00 * Test Item Value Reference Range Interpretation Comments Neutrophils (%) (Auto) (test code = 89429-1) 63.7 38.7-80.0 [facility] CenterLymphocytes (%) (Auto)2018-04-28 09:00:00 * Test Item Value Reference Range Interpretation Comments Lymphocytes (%) (Auto) (test code = 736-9) 28.5 18.0-39.1 [facility] CenterMonocytes (%) (Auto)2018-04-28 09:00:00* Test Item Value Reference Range Interpretation Comments Monocytes (%) (Auto) (test code = 5905-5) 4.6 4.4-11.3 [facility] CenterEosinophils (%) (Auto)2018-04-28 09:00:00 * Test Item Value Reference Range Interpretation Comments Eosinophils (%) (Auto) (test code = 713-8) 2.2 0.0-6.0 [facility] CenterBasophils (%) (Auto)2018-04-28 09:00:00* Test Item Value Reference Range Interpretation Comments Basophils (%) (Auto) (test code = 706-2) 0.7 0.0-1.0 [facility]IM [facility]OC[facility]TES %2018-04-28 09:00:00* Test Item Value Reference Range Interpretation Comments IM GRANULOCYTES % (test code = IM GRANULOCYTES %) 0.3 0.0- 1.0 [facility] CenterNeutrophils # (Auto)2018-04-28 09:00:00* Test Item Value Reference Range Interpretation Comments Neutrophils # (Auto) (test code = 751-8) 3.7 2.1-6.9 [facility] CenterLymphocytes # (Auto)2018-04-28 09:00:00* Test Item Value Reference Range Interpretation Comments Lymphocytes # (Auto) (test code = 99133-1) 1.7 1.0-3.2 [facility] CenterMonocytes # (Auto)2018-04-28 09:00:00* Test Item Value Reference Range Interpretation Comments Monocytes # (Auto) (test code = 742-7) 0.3 0.2-0.8 [facility] CenterEosinophils # (Auto)2018-04-28 09:00:00* Test Item Value Reference Range Interpretation Comments Eosinophils # (Auto) (test code = 711-2) 0.1 0.0-0.4 [facility] CenterBasophils # (Auto)2018-04-28 09:00:00* Test Item Value Reference Range Interpretation Comments Basophils # (Auto) (test code = 704-7) 0.0 0.0-0.1 [facility] CenterAbsolute Immature Granulocyte (auto 2018-04-28 09:00:00* Test Item Value Reference Range Interpretation Comments Absolute Immature Granulocyte (auto (alexa t code = Absolute Immature Granulocyte (auto) 0.02 0-0.1 [facility] CenterCT ABDOMEN/PELVIS L0397-74-00 10:58:00 [facility] [address] [place] [address] Patient Name: ANGELA ESPINOSA MR #: [id number] : 1975 Age/Sex: 42/F Req #: [id number] Adm Physician: Ordered by: DANIAL ÁLVAREZ MD Report #: [id number] Location: ER Room/Bed: Procedure: [id number] CT/CT ABDOMEN/PELVIS W Exam Date: 03/28/18 Exam [...] 03/28/181105 COPY TO: DANIAL ÁLVAREZ MD Amylase Qdglf9473-18-88 09:26:00* Test Item Value Reference Range Interpretation Comments Amylase Level (test code = 1798-8) 101 25-125 [facility] CenterAmylase Giyjm8374-18-77 09:26:00* Test Item Value Reference Range Interpretation Comments Amylase Level (test code = 1798-8) 101 25-125 [facility] Chorionic Gonadotropin, [facility] 2018-03-28 09:15:00* Test Item Value Reference Range Interpretation Comments Human Chorionic Gonadotropin, Qual (test code = 2118-8) NEGATIVE NEGATIVE [facility] Chorionic Gonadotropin, [facility] 2018-03-28 09:15:00* Test Item Value Reference Range Interpretation Comments Human Chorionic Gonadotropin, Qual (test code = 2118-8) NEGATIVE NEGATIVE [facility] Chorionic Gonadotropin, [facility] 2018-03-28 09:15:00* Test Item Value Reference Range Interpretation Comments Human Chorionic Gonadotropin, Qual (test code = 2118-8) NEGATIVE NEGATIVE [facility] Chorionic Gonadotropin, [facility] 2018-03-28 09:15:00* Test Item Value Reference Range Interpretation Comments Human Chorionic Gonadotropin, Qual (test code = 2118-8) NEGATIVE NEGATIVE [facility] Chorionic Gonadotropin, [facility] 2018-03-28 09:15:00* Test Item Value Reference Range Interpretation Comments Human Chorionic Gonadotropin, Qual (test code = 2118-8) NEGATIVE NEGATIVE [facility] Chorionic Gonadotropin, Qual 2018-03-28 09:15:00* Test Item Value Reference Range Interpretation Comments Human Chorionic Gonadotropin, Qual (test code = 2118-8) NEGATIVE NEGATIVE [facility] Chorionic Gonadotropin, Qual 2018-03-28 09:15:00* Test Item Value Reference Range Interpretation Comments Human Chorionic Gonadotropin, Qual (test code = 8-8) NEGATIVE NEGATIVE [facility]CT CHEST N0324-40-82 11:17:00 [facility] [address] [address] Patient Name: ANGELA ESPINOSA MR #: [id number] : 1975 Age/Sex: 42/F Req #: [id number] Adm Physician: Ordered by: SEEMA TINAJERO MD Report #: [id number] Location: [facility]/Bed: Procedure: [id number] CT/CT CHEST W Exam Date : 03/04/18 [...] main pulmonary artery, right and left pulmon mna arteries, and their visualized lobar and segmental [...] COPY TO: SEEMA TINAJERO MD CT ABDOMEN/PELVIS [id number] 11:17:00 [address] [address] Patient Name: ANGELA ESPINOSA MR #: [id number] : 1975 Age/Sex: 42/F Req #: [id number] Adm Physician: Ordered by: SEEMA TINAJERO MD Report #: [id number] Location: ER Room/Bed: Procedure: [id number] CT/CT ABDOMEN/PELVIS W Exam Date: 03/04/18 Exam [...] AM Dictat ed By: CAM ANDRES MD 113 Transcribed By: LULU on 03/04/18 1131 COPY TO: SEEMA TINAJERO MD Sodium Gaaps1960-44-75 09:49:00* Test Item Value Reference Range Interpretation Comments Sodium Level (test code = 2951-2) 138 136-145 [facility] CenterPotassium Kdbgt5347-45-09 09:49:00* Test Item Value Reference Range Interpretation Comments Potassium Level (test code = 2823-3) 4.3 3.5-5.1 [facility] CenterChloride Cagto8584-82-36 09:49:00* Test Item Value Reference Range Interpretation Comments Chloride Level (test code = 2075-0) 105 98-107 [facility] CenterCarbon Dioxide Rxezm9291-07-70 09:49:00* Test Item Value Reference Range Interpretation Comments Carbon Dioxide Level (test code = 2028-9) 22 22-29 [facility] CenterAnion Qld0961-29-67 09:49:00* Test Item Value Reference Range Interpretation Comments Anion Gap (test code = 19536-7) 15.3 8-16 [facility] CenterBlood Urea Cdtxbwpu4116-02-97 09:49:00* Test Item Value Reference Range Interpretation Comments Blood Urea Nitrogen (test code = 3094-0) 16 7-26 [facility] CenterCreatinine2018-10-04 09:49:00* Test Item Value Reference Range Interpretation Comments Creatinine (test code = 2160-0) 0.99 0.57-1.11 [facility] CenterBUN/Creatinine Fxeiw8628-94-36 09:49:00* Test Item Value Reference Range Interpretation Comments BUN/Creatinine Ratio (test code = 3097-3) 16 6-25 [facility] CenterEstimat Glomerular Filtration Rate 2018-03-04 09:49:00* Test Item Value Reference Range Interpretation Comments Estimat Glomerular Filtration Rate (test code = 210785228) 60- >60 Ranges were taken from the National Kidney Disease Education Program and the [facility] literature.Reference ranges:60 or greater: Vibpcy01-74 ( for 3 consecutive months): Chronic kidney disease 15 or less: Kidney failureSaint Camillus Medical CenterGlucose Mnpkd1630-50-33 09:49:00* Test Item Value Reference Range Interpretation Comments Glucose Level (test code = DJH5263) 122 74-118 H [facility] CenterCalcium Eoyoj8142-14-38 09:49:00* Test Item Value Reference Range Interpretation Comments Calcium Level (test code = 26150-7) 9.3 8.4-10.2 [facility] CenterTotal Zhtszckny6801-19-67 09:49:00* Test Item Value Reference Range Interpretation Comments Total Bilirubin (test code = 1975-2) 0.2 0.2-1.2 [facility] CenterAspartate Amino Transf (AST/SGOT) 2018-03-04 09:49:00* Test Item Value Reference Range Interpretation Comments Aspartate Amino Transf (AST/SGOT) (test code = Aspartate Amino Transf (AST/SGOT)) 20 5-34 [facility] CenterAlanine Aminotransferase (ALT/SGPT) 2018-03-04 09:49:00* Test Item Value Reference Range Interpretation Comments Alanine Aminotransferase (ALT/SGPT) (test code = 1742-6) 24 0-55 [facility] CenterTotal Iizxrht1352-36-24 09:49:00* Test Item Value Reference Range Interpretation Comments Total Protein (test code = 2885-2) 6.7 6.5-8.1 [facility] CenterAlbumin2018-10-04 09:49:00* Test Item Value Reference Range Interpretation Comments Albumin (test code = 1751-7) 3.5 3.5-5.0 [facility] CenterGlobulin2018-10-04 09:49:00* Test Item Value Reference Range Interpretation Comments Globulin (test code = 98616-9) 3.2 2.3-3.5 [facility] CenterAlbumin/Globulin Cdton1951-82-50 09:49:00 * Test Item Value Reference Range Interpretation Comments Albumin/Globulin Ratio (test code = 1759-0) 1.1 0.8-2.0 [facility] CenterAlkaline Gllblfrnnji5702-89-61 09:49:00* Test Item Value Reference Range Interpretation Comments Alkaline Phosphatase (test code = 6768-6) 107 40-150 [facility] CenterLipase2018-10-04 09:49:00* Test Item Value Reference Range Interpretation Comments Lipase (test code = 3040-3) 32 8-78 [facility] CenterUrine YUL1299-53-23 09:36:00* Test Item Value Reference Range Interpretation Comments Urine WBC (test code = 5821-4) NONE 0-5 [facility] CenterUrine YLR8728-01-57 09:36:00* Test Item Value Reference Range Interpretation Comments Urine RBC (test code = 82075-4) 11-20 0-5 H [facility] CenterUrine Hcvddyzt2641-84-69 09:36:00* Test Item Value Reference Range Interpretation Comments Urine Bacteria (test code = 06005-4) FEW NONE [facility] CenterUrine Epithelial Qiqpf0220-52-93 09:36:00 * Test Item Value Reference Range Interpretation Comments Urine Epithelial Cells (test code = 74856-1) FEW NONE [facility] CenterUrine Fizgc6459-80-24 09:27:00* Test Item Value Reference Range Interpretation Comments Urine Color (test code = 5778-6) YELLOW YELLOW [facility] CenterUrine Hgzcxfx1766-55-42 09:27:00* Test Item Value Reference Range Interpretation Comments Urine Clarity (test code = 31221-4) SL CLOUDY CLEAR [facility] CenterUrine Specific Htkiaxa5277-13-05 09:27:00 * Test Item Value Reference Range Interpretation Comments Urine Specific [place]que[place] (test code = 5811-5) 1.010 1.010-1.02 5 [facility] CenterUrine oH2449-69-15 09:27:00* Test Item Value Reference Range Interpretation Comments Urine pH (test code = 31388-2) 6 5-7 [facility] CenterUrine Leukocyte Doqhmkre5077-32-10 09:27:00* Test Item Value Reference Range Interpretation Comments Urine Leukocyte Esterase (test code = 5799-2) NEGATIVE NEGATIVE [facility] CenterUrine Rgsqwfq4712-03-23 09:27:00* Test Item Value Reference Range Interpretation Comments Urine Nitrite (test code = 95895-5) NEGATIVE NEGATIVE [facility] Cpdblkb5711-66-37 09:27:00* Test Item Value Reference Range Interpretation Comments Urine Protein (test code = 5804-0) NEGATIVE NEGATIVE [facility] CenterUrine Glucose (UA)2018-03-04 09:27:00* Test Item Value Reference Range Interpretation Comments Urine Glucose (UA) (test code = 2349-9) NEGATIVE NEGATIVE [facility] CenterUrine Hvfnstu8278-10-48 09:27:00* Test Item Value Reference Range Interpretation Comments Urine Ketones (test code = 44073-6) NEGATIVE NEGATIVE [facility] Reryxmuzatof1723-04-92 09:27:00* Test Item Value Reference Range Interpretation Comments Urine Urobilinogen (test code = 78033-5) 0.2 0.2-1 [facility] CenterUrine Ghhzpazum3858-74-22 09:27:00* Test Item Value Reference Range Interpretation Comments Urine Bilirubin (test code = 1978-6) NEGATIVE NEGATIVE [facility] CenterUrine Tdegl6347-03-37 09:27:00* Test Item Value Reference Range Interpretation Comments Urine Blood (test code = 78287-0) 3+ NEGATIVE H [facility] CenterWhite Blood Avonc8598-17-48 09:23:00* Test Item Value Reference Range Interpretation Comments White Blood Count (test code = 6690-2) 6.21 4.8-10.8 [facility] CenterRed Blood Mhdzi3228-26-92 09:23:00* Test Item Value Reference Range Interpretation Comments Red Blood Count (test code = 789-8) 4.20 3.6-5.1 [facility] CenterHemoglobin2018-10-04 09:23:00* Test Item Value Reference Range Interpretation Comments Hemoglobin (test code = 04213-5) 12.5 12.0-16.0 [facility] CenterHematocrit2018-10-04 09:23:00* Test Item Value Reference Range Interpretation Comments Hematocrit (test code = 4544-3) 36.8 34.2-44.1 [facility] CenterMean Corpuscular Zhkdxo5622-92-28 09:23:00* Test Item Value Reference Range Interpretation Comments Mean Corpuscular Volume (test code = 787-2) 87.6 81-99 [facility] CenterMean Corpuscular Tgsmbultmv5177-31-37 09:23:00* Test Item Value Reference Range Interpretation Comments Mean Corpuscular Hemoglobin (test code = 785-6) 29.8 28-32 [facility] CenterMean Corpuscular Hemoglobin Concent 2018-03-04 09:23:00* Test Item Value Reference Range Interpretation Comments Mean Corpuscular Hemoglobin Concent (test code = 786-4) 34.0 31-35 [facility] CenterRed Cell Distribution Hjqfm3093-61-27 09:23:00* Test Item Value Reference Range Interpretation Comments Red Cell Distribution Width (test code = 60099-4) 13.8 11.7 -14.4 [facility] CenterPlatelet Qvium8028-64-66 09:23:00* Test Item Value Reference Range Interpretation Comments Platelet Count (test code = 777-3) 264 140-360 [facility] CenterNeutrophils (%) (Auto)2018-03-04 09:23:00 * Test Item Value Reference Range Interpretation Comments Neutrophils (%) (Auto) (test code = 49584-9) 70.5 38.7-80.0 [facility] CenterLymphocytes (%) (Auto)2018-03-04 09:23:00 * Test Item Value Reference Range Interpretation Comments Lymphocytes (%) (Auto) (test code = 736-9) 20.3 18.0-39.1 [facility] CenterMonocytes (%) (Auto)2018-03-04 09:23:00* Test Item Value Reference Range Interpretation Comments Monocytes (%) (Auto) (test code = 5905-5) 6.0 4.4-11.3 [facility] CenterEosinophils (%) (Auto)2018-03-04 09:23:00 * Test Item Value Reference Range Interpretation Comments Eosinophils (%) (Auto) (test code = 713-8) 2.3 0.0-6.0 [facility] CenterBasophils (%) (Auto)2018-03-04 09:23:00* Test Item Value Reference Range Interpretation Comments Basophils (%) (Auto) (test code = 706-2) 0.6 0.0-1.0 [facility] CenterIM GRANULOCYTES %2018-03-04 09:23:00* Test Item Value Reference Range Interpretation Comments IM GRANULOCYTES % (test code = IM GRANULOCYTES %) 0.3 0.0- 1.0 [facility] CenterNeutrophils # (Auto)2018-03-04 09:23:00* Test Item Value Reference Range Interpretation Comments Neutrophils # (Auto) (test code = 751-8) 4.4 2.1-6.9 [facility] CenterLymphocytes # (Auto)2018-03-04 09:23:00* Test Item Value Reference Range Interpretation Comments Lymphocytes # (Auto) (test code = 61746-2) 1.3 1.0-3.2 [facility] CenterMonocytes # (Auto)2018-03-04 09:23:00* Test Item Value Reference Range Interpretation Comments Monocytes # (Auto) (test code = 742-7) 0.4 0.2-0.8 [facility] CenterEosinophils # (Auto)2018-03-04 09:23:00* Test Item Value Reference Range Interpretation Comments Eosinophils # (Auto) (test code = 711-2) 0.1 0.0-0.4 [facility] CenterBasophils # (Auto)2018-03-04 09:23:00* Test Item Value Reference Range Interpretation Comments Basophils # (Auto) (test code = 704-7) 0.0 0.0-0.1 [facility] CenterAbsolute Immature Granulocyte (auto 2018-03-04 09:23:00* Test Item Value Reference Range Interpretation Comments Absolute Immature Granulocyte (auto (alexa t code = Absolute Immature Granulocyte (auto) 0.02 0-0.1 [facility] Rhtgfwo0797-25-26 10:44:00* Test Item Value Reference Range Interpretation Comments Bedside Glucose (test code = 75131-6) 106 70-120 Meter ID: [id number] [facility]ty [facility] Glucose 2018-02-09 10:44:00* Test Item Value Reference Range Interpretation Comments Bedside Glucose (test code = 45056-1) 106 70-120 Meter ID: [id number] [facility]ty [facility] Glucose 2018-02-09 10:44:00* Test Item Value Reference Range Interpretation Comments Bedside Glucose (test code = 76613-4) 106 70-120 Meter ID: [id number] [facility] Glucose 2018-02-09 10:44:00* Test Item Value Reference Range Interpretation Comments Bedside Glucose (test code = 13307-6) 106 70-120 Meter ID: [id number] Specialty [facility] Glucose 2018-02-09 10:44:00* Test Item Value Reference Range Interpretation Comments Bedside Glucose (test code = 94051-1) 106 70-120 Meter ID: [id number] Specialty [facility] Glucose 2018-02-09 10:44:00* Test Item Value Reference Range Interpretation Comments Bedside Glucose (test code = 44176-6) 106 70-120 Meter ID: [id number] Specialty Hospitals of [facility] Glucose 2018-02-09 10:44:00* Test Item Value Reference Range Interpretation Comments Bedside Glucose (test code = 26582-7) 106 70-120 Meter ID: [id number] Specialty [facility] Glucose 2018-02-09 10:44:00* Test Item Value Reference Range Interpretation Comments Bedside Glucose (test code = 22771-0) 106 70-120 Meter ID: [id number] [facility] Glucose 2018-02-09 10:44:00* Test Item Value Reference Range Interpretation Comments Bedside Glucose (test code = 49807-8) 106 70-120 Meter ID: [id number] [facility]illus Medical CenterUrine FOO5128-35-56 10:06:00* Test Item Value Reference Range Interpretation Comments Urine WBC (test code = 5821-4) NONE 0-5 [facility] CenterUrine MRA4064-86-07 10:06:00* Test Item Value Reference Range Interpretation Comments Urine RBC (test code = 08552-2) NONE 0-5 [facility] CenterUrine Okssaorp7178-36-29 10:06:00* Test Item Value Reference Range Interpretation Comments Urine Bacteria (test code = 75556-6) FEW NONE [facility] CenterUrine Epithelial Xajqe3518-69-83 10:06:00 * Test Item Value Reference Range Interpretation Comments Urine Epithelial Cells (test code = 24894-5) MODERATE NONE [facility] CenterUrine Xjjo6714-43-83 09:31:00* Test Item Value Reference Range Interpretation Comments Urine Test (test code = 2106-3) NEGATIVE NEGATIVE [facility] CenterUrine Whjy7109-75-27 09:31:00* Test Item Value Reference Range Interpretation Comments Urine Test (test code = 2106-3) NEGATIVE NEGATIVE [facility] CenterUrine Rilg0871-78-86 09:31:00* Test Item Value Reference Range Interpretation Comments Urine Test (test code = 2106-3) NEGATIVE NEGATIVE [facility] CenterUrine Cqttk6319-22-70 09:30:00* Test Item Value Reference Range Interpretation Comments Urine Color (test code = 5778-6) GEO YELLOW H [facility] CenterUrine Hlbjvph6957-80-10 09:30:00* Test Item Value Reference Range Interpretation Comments Urine Clarity (test code = 58419-2) SL CLOUDY CLEAR [facility] CenterUrine Specific Urlwhns9250-57-80 09:30:00 * Test Item Value Reference Range Interpretation Comments Urine Specific [place] (test code = 5811-5) 1.030 1.010-1.02 5 H [facility] CenterUrine gX2245-06-23 09:30:00* Test Item Value Reference Range Interpretation Comments Urine pH (test code = 64789-6) 6 5-7 [facility] CenterUrine Leukocyte Swayybec8328-58-83 09:30:00* Test Item Value Reference Range Interpretation Comments Urine Leukocyte Esterase (test code = 5799-2) NEGATIVE NEGATIVE [facility] Fbyhzir7354-94-20 09:30:00* Test Item Value Reference Range Interpretation Comments Urine Nitrite (test code = 73949-0) NEGATIVE NEGATIVE [facility] CenterUrine Hidkjvk5259-30-18 09:30:00* Test Item Value Reference Range Interpretation Comments Urine Protein (test code = 5804-0) TRACE NEGATIVE H [facility] CenterUrine Glucose (UA)2018-02-09 09:30:00* Test Item Value Reference Range Interpretation Comments Urine Glucose (UA) (test code = 2349-9) NEGATIVE NEGATIVE [facility] CenterUrine Nrwovrw9700-16-57 09:30:00* Test Item Value Reference Range Interpretation Comments Urine Ketones (test code = 81441-3) NEGATIVE NEGATIVE [facility] CenterUrine Dkgtnipyxwgl3005-94-93 09:30:00* Test Item Value Reference Range Interpretation Comments Urine Urobilinogen (test code = 76172-1) 1 0.2-1 [facility] CenterUrine Luippusps5986-98-26 09:30:00* Test Item Value Reference Range Interpretation Comments Urine Bilirubin (test code = 1978-6) 1+ NEGATIVE H [facility] CenterUrine Njvxu1865-46-29 09:30:00* Test Item Value Reference Range Interpretation Comments Urine Blood (test code = 52588-3) NEGATIVE NEGATIVE [facility] A7392-39-72 10:06:00 [facility] [address] [address] Patient Name: ANGELA ESPINOSA MR #: [id number] OB: 1975 Age/Sex: 42/F Req #: [id number] Adm Physic domo: Ordered by: SEEMA TINAJERO MD Report #: [id number] Location: ER Ro om/Bed: Procedure: [id number] CT/CT ABDOMEN/PELVIS W Exam Date: 01/21/18 Exam [...] were ut ilized. DLP: 868.77 mGy-cm COMPARISON: [facility], CT, CT ABDOMEN/PELVIS W, 12/04/2017, 11:21. [...] TO: SEEMA DELAROSA MD CT LUMBAR SPINE A7272-18-64 09:59:00 [place] [address] Patient Name: ANGELA ESPINOSA MR #: [id number] : 1975 Age/Sex: 42/F Req #: [id number] Adm Physician: Ordered by: SEEMA TINAJERO MD Report #: [id number] Location: [facility]/Bed: Procedure: [id number] CT/CT LUMBAR SPINE W Ex am Date: [...] Comments Creatine Kinase MB (test code = 71085-6) 0.40 0-5.0 [facility] CenterTroponin T8656-16-79 08:56:00* Test Item Value Reference Range Interpretation Comments Troponin I (test code = JKA5951) -0.001 0-0.300 [facility] CenterCreatine Kinase RM0589-40-31 08:56:00* Test Item Value Reference Range Interpretation Comments Creatine Kinase MB (test code = 27389-2) 0.40 0-5.0 [place] 961558-08-23 08:56:00* Test Item Value Reference Range Interpretation Comments Troponin I (test code = BQS2096) -0.001 0-0.300 [facility] CenterCreatine Kinase BV3393-84-16 08:56:00* Test Item Value Reference Range Interpretation Comments Creatine Kinase MB (test code = 87548-7) 0.40 0-5.0 [place] 961558-08-23 08:56:00* Test Item Value Reference Range Interpretation Comments Troponin I (test code = FJU8131) -0.001 0-0.300 [facility] JG8397-62-89 08:56:00* Test Item Value Reference Range Interpretation Comments Creatine Kinase MB (test code = 06330-7) 0.40 0-5.0 [place] 961558-08-23 08:56:00* Test Item Value Reference Range Interpretation Comments Troponin I (test code = DEB4963) < 0.001 0-0.300 [facility] CenterCreatine Kinase VH0057-19-50 08:56:00* Test Item Value Reference Range Interpretation Comments Creatine Kinase MB (test code = 62889-7) 0.40 0-5.0 [place] 56161018-08-23 08:56:00* Test Item Value Reference Range Interpretation Comments Troponin I (test code = AGB9511) < 0.001 0-0.300 [facility] CenterCreatine Kinase FU9718-04-54 08:56:00* Test Item Value Reference Range Interpretation Comments Creatine Kinase MB (test code = 49722-5) 0.40 0-5.0 [place] 961558-08-23 08:56:00* Test Item Value Reference Range Interpretation Comments Troponin I (test code = XKA2854) < 0.001 0-0.300 [facility] CenterCreatine Kinase BA6908-95-67 08:56:00* Test Item Value Reference Range Interpretation Comments Creatine Kinase MB (test code = 34383-0) 0.40 0-5.0 [place] 56161018-08-23 08:56:00* Test Item Value Reference Range Interpretation Comments Troponin I (test code = ODM4696) < 0.001 0-0.300 [facility] CenterCreatine Kinase RE3616-55-93 08:56:00* Test Item Value Reference Range Interpretation Comments Creatine Kinase MB (test code = 23896-4) 0.40 0-5.0 [place] 56161018-08-23 08:56:00* Test Item Value Reference Range Interpretation Comments Troponin I (test code = DTO3010) < 0.001 0-0.300 [facility] CenterCreatine Kinase DL6068-46-92 08:56:00* Test Item Value Reference Range Interpretation Comments Creatine Kinase MB (test code = 03496-3) 0.40 0-5.0 [place] 56161018-08-23 08:56:00* Test Item Value Reference Range Interpretation Comments Troponin I (test code = FPY1469) < 0.001 0-0.300 [facility] CenterCreatine Kinase ZC3194-15-45 08:56:00* Test Item Value Reference Range Interpretation Comments Creatine Kinase MB (test code = 09007-7) 0.40 0-5.0 [place] 56161018-08-23 08:56:00* Test Item Value Reference Range Interpretation Comments Troponin I (test code = NBJ3348) < 0.001 0-0.300 [facility] CenterUrine Opiates Tbyuvx2922-49-39 08:52:00* Test Item Value Reference Range Interpretation Comments Urine Opiates Screen (test code = 01176-3) NEGATIVE NEGATIVE [facility] Barbiturates Gaqayc0596-53-69 08:52:00* Test Item Value Reference Range Interpretation Comments Urine Barbiturates Screen (test code = 645216276) NEGATIVE NEGA TIVE [facility] Phencyclidine Bokfau8183-35-78 08:52:00* Test Item Value Reference Range Interpretation Comments Urine Phencyclidine Screen (test code = 13735-5) NEGATIVE NEGAT HENRY [facility] Amphetamines Oahjew5772-19-64 08:52:00* Test Item Value Reference Range Interpretation Comments Urine Amphetamines Screen (test code = 24983-0) NEGATIVE NEGATI VE [facility] Methamphetamines Urozgs1670-57-92 08:52:00* Test Item Value Reference Range Interpretation Comments Urine Methamphetamines Screen (test code = Urine Metha mphetamines Screen) NEGATIVE NEGATIVE [facility] Benzodiazepines Pwnujz4803-13-12 08:52:00* Test Item Value Reference Range Interpretation Comments Urine Benzodiazepines Screen (test code = 52127-6) POSITIVE NEG ATIVE H This test provides only a screen. Positive results should be repeated by a confi rmatory test.[facility] Center[facility] Cocaine Screen 2018-01-21 08:52:00* Test Item Value Reference Range Interpretation Comments Urine Cocaine Screen (test code = 3398-5) NEGATIVE NEGATIVE [facility] Cannabinoids Psdokj5119-72-38 08:52:00* Test Item Value Reference Range Interpretation Comments Urine Cannabinoids Screen (test code = 77227-1) POSITIVE NEGATI VE H This test provides only a screen. Positive results should be repeated by a confi rmatory test.[facility] Opiates Screen 2018-01-21 08:52:00* Test Item Value Reference Range Interpretation Comments Urine Opiates Screen (test code = 10146-9) NEGATIVE NEGATIVE [facility] Barbiturates Xybcpm6804-30-23 08:52:00* Test Item Value Reference Range Interpretation Comments Urine Barbiturates Screen (test code = 807905825) NEGATIVE NEGA TIVE [facility] Phencyclidine Kozolv6616-18-39 08:52:00* Test Item Value Reference Range Interpretation Comments Urine Phencyclidine Screen (test code = 99460-7) NEGATIVE NEGAT HENRY [facility] Amphetamines Iswxzk1609-63-19 08:52:00* Test Item Value Reference Range Interpretation Comments Urine Amphetamines Screen (test code = 85780-5) NEGATIVE NEGATI VE [facility] Methamphetamines Osctik2016-78-91 08:52:00* Test Item Value Reference Range Interpretation Comments Urine Methamphetamines Screen (test code = Urine Metha mphetamines Screen) NEGATIVE NEGATIVE [facility] Benzodiazepines Njpygs9055-46-33 08:52:00* Test Item Value Reference Range Interpretation Comments Urine Benzodiazepines Screen (test code = 07707-3) POSITIVE NEG ATIVE H This test provides only a screen. Positive results should be repeated by a confi rmatory test.[facility] Cocaine Screen 2018-01-21 08:52:00* Test Item Value Reference Range Interpretation Comments Urine Cocaine Screen (test code = 3398-5) NEGATIVE NEGATIVE [facility] Cannabinoids Xgmjnq5979-50-70 08:52:00* Test Item Value Reference Range Interpretation Comments Urine Cannabinoids Screen (test code = 66899-6) POSITIVE NEGATI VE H This test provides only a screen. Positive results should be repeated by a confi rmatory test.[facility] Opiates Screen 2018-01-21 08:52:00* Test Item Value Reference Range Interpretation Comments Urine Opiates Screen (test code = 80428-4) NEGATIVE NEGATIVE [facility] Barbiturates Hdyljh1398-71-70 08:52:00* Test Item Value Reference Range Interpretation Comments Urine Barbiturates Screen (test code = 655828268) NEGATIVE NEGA TIVE [facility] Center[facility] Phencyclidine Gulgpd8904-07-22 08:52:00* Test Item Value Reference Range Interpretation Comments Urine Phencyclidine Screen (test code = 40433-4) NEGATIVE NEGAT HENRY [facility] Center[facility] Amphetamines Dgqham9624-92-24 08:52:00* Test Item Value Reference Range Interpretation Comments Urine Amphetamines Screen (test code = 05302-9) NEGATIVE NEGATI VE [facility] CenterU[facility] Methamphetamines Evhyne3003-14-14 08:52:00* Test Item Value Reference Range Interpretation Comments Urine Methamphetamines Screen (test code = Urine Metha mphetamines Screen) NEGATIVE NEGATIVE [facility] Center[facility] Benzodiazepines Xmhjaj8402-10-38 08:52:00* Test Item Value Reference Range Interpretation Comments Urine Benzodiazepines Screen (test code = 89192-7) POSITIVE NEG ATIVE H This test provides only a screen. Positive results should be repeated by a confi rmatory test.[facility] Cocaine Screen 2018-01-21 08:52:00* Test Item Value Reference Range Interpretation Comments Urine Cocaine Screen (test code = 3398-5) NEGATIVE NEGATIVE [facility] Cannabinoids Rexlow4547-46-36 08:52:00* Test Item Value Reference Range Interpretation Comments Urine Cannabinoids Screen (test code = 59172-4) POSITIVE NEGATI VE H This test provides only a screen. Positive results should be repeated by a confi rmatory test.[facility]odium Ubomi4215-91-60 08:50:00* Test Item Value Reference Range Interpretation Comments Sodium Level (test code = 2951-2) 139 136-145 [facility]Potassium Szrmv3791-40-13 08:50:00* Test Item Value Reference Range Interpretation Comments Potassium Level (test code = 2823-3) 3.4 3.5-5.1 L [facility] CenterChloride Xauzj2111-76-31 08:50:00* Test Item Value Reference Range Interpretation Comments Chloride Level (test code = 2075-0) 107 98-107 [facility] CenterCarbon Dioxide Odorj0226-32-38 08:50:00* Test Item Value Reference Range Interpretation Comments Carbon Dioxide Level (test code = 2028-9) 23 22-29 [facility] CenterAnion Krq2231-89-47 08:50:00* Test Item Value Reference Range Interpretation Comments Anion Gap (test code = 44487-5) 12.4 8-16 [facility] CenterBlood Urea Wwajuhhl7864-43-12 08:50:00* Test Item Value Reference Range Interpretation Comments Blood Urea Nitrogen (test code = 3094-0) 7 7-26 [facility] CenterCreatinine2018-08-23 08:50:00* Test Item Value Reference Range Interpretation Comments Creatinine (test code = 2160-0) 0.83 0.57-1.11 [facility] CenterBUN/Creatinine Agxys8602-12-92 08:50:00* Test Item Value Reference Range Interpretation Comments BUN/Creatinine Ratio (test code = 3097-3) 8 6-25 [facility] CenterEstimat Glomerular Filtration Rate 2018-01-21 08:50:00* Test Item Value Reference Range Interpretation Comments Estimat Glomerular Filtration Rate (test code = 32892-4) 60- >60 Ranges were taken from the National Kidney Disease Education Program and the [facility] Foundation literature.Reference ranges:60 or greater: Ywujwn35-97 ( for 3 consecutive months): Chronic kidney disease 15 or less: Kidney failureSaint [facility] Medical CenterGlucose Bmngn3360-78-42 08:50:00* Test Item Value Reference Range Interpretation Comments Glucose Level (test code = UUN9012) 115 74-118 [facility] CenterCalcium Waqvu7204-76-39 08:50:00* Test Item Value Reference Range Interpretation Comments Calcium Level (test code = 26911-7) 8.9 8.4-10.2 [facility] CenterTotal Dxpeefatn8940-25-65 08:50:00* Test Item Value Reference Range Interpretation Comments Total Bilirubin (test code = 1975-2) 0.4 0.2-1.2 [facility] CenterAspartate Amino Transf (AST/SGOT) 2018-01-21 08:50:00* Test Item Value Reference Range Interpretation Comments Aspartate Amino Transf (AST/SGOT) (test code = Aspartate Amino Transf (AST/SGOT)) 13 5-34 [facility] CenterAlanine Aminotransferase (ALT/SGPT) 2018-01-21 08:50:00* Test Item Value Reference Range Interpretation Comments Alanine Aminotransferase (ALT/SGPT) (test code = 1742-6) 15 0-55 [facility] CenterTotal Fcsllfl2049-08-49 08:50:00* Test Item Value Reference Range Interpretation Comments Total Protein (test code = 2885-2) 6.5 6.5-8.1 [facility] CenterAlbumin2018-08-23 08:50:00* Test Item Value Reference Range Interpretation Comments Albumin (test code = 1751-7) 3.5 3.5-5.0 [facility] CenterGlobulin2018-08-23 08:50:00* Test Item Value Reference Range Interpretation Comments Globulin (test code = 65874-3) 3.0 2.3-3.5 [facility] CenterAlbumin/Globulin Rvqei5478-23-11 08:50:00 * Test Item Value Reference Range Interpretation Comments Albumin/Globulin Ratio (test code = 1759-0) 1.2 0.8-2.0 [facility] CenterAlkaline Pkbvgawsrbs5184-10-63 08:50:00* Test Item Value Reference Range Interpretation Comments Alkaline Phosphatase (test code = 6768-6) 90 40-150 [facility] CenterCreatine Awdhoa0856-72-31 08:50:00* Test Item Value Reference Range Interpretation Comments Creatine Kinase (test code = 2157-6) 75 29-168 [facility] CenterAmylase Uownl7362-00-55 08:50:00* Test Item Value Reference Range Interpretation Comments Amylase Level (test code = 1798-8) 96 25-125 [facility] CenterLipase2018-08-23 08:50:00* Test Item Value Reference Range Interpretation Comments Lipase (test code = 3040-3) 28 8-78 [facility] Hospitalodium Fymxp3916-65-10 08:50:00* Test Item Value Reference Range Interpretation Comments Sodium Level (test code = 2951-2) 139 136-145 [facility] CenterPotassium Iiuqb5305-27-14 08:50:00* Test Item Value Reference Range Interpretation Comments Potassium Level (test code = 2823-3) 3.4 3.5-5.1 L [facility] CenterChloride Dyzbd9028-51-91 08:50:00* Test Item Value Reference Range Interpretation Comments Chloride Level (test code = 2075-0) 107 98-107 [facility] CenterCarbon Dioxide Qfnlz6177-35-41 08:50:00* Test Item Value Reference Range Interpretation Comments Carbon Dioxide Level (test code = 2028-9) 23 22-29 [facility] CenterAnion Jpd9977-35-31 08:50:00* Test Item Value Reference Range Interpretation Comments Anion Gap (test code = 09571-4) 12.4 8-16 [facility] CenterBlood Urea Idciljap7820-69-38 08:50:00* Test Item Value Reference Range Interpretation Comments Blood Urea Nitrogen (test code = 3094-0) 7 7-26 [facility] CenterCreatinine2018-08-23 08:50:00* Test Item Value Reference Range Interpretation Comments Creatinine (test code = 2160-0) 0.83 0.57-1.11 [facility] CenterBUN/Creatinine Pnuvg7787-78-62 08:50:00* Test Item Value Reference Range Interpretation Comments BUN/Creatinine Ratio (test code = 3097-3) 8 6- [facility] CenterEstimat Glomerular Filtration Rate 2018-01-21 08:50:00* Test Item Value Reference Range Interpretation Comments Estimat Glomerular Filtration Rate (test code = 23164-6) 60- >60 Ranges were taken from the National Kidney Disease Education Program and the [facility] literature.Reference ranges:60 or greater: Vzodqz72-39 ( for 3 consecutive months): Chronic kidney disease 15 or less: Kidney failureSaint [facility]illus Medical CenterGlucose Iudbq0629-41-89 08:50:00* Test Item Value Reference Range Interpretation Comments Glucose Level (test code = LHZ5195) 115 74-118 [facility] CenterCalcium Fsbxl6888-95-60 08:50:00* Test Item Value Reference Range Interpretation Comments Calcium Level (test code = 63101-8) 8.9 8.4-10.2 [facility] CenterTotal Dtiwakfzt4640-15-28 08:50:00* Test Item Value Reference Range Interpretation Comments Total Bilirubin (test code = 1975-2) 0.4 0.2-1.2 [facility] CenterAspartate Amino Transf (AST/SGOT) 2018-01-21 08:50:00* Test Item Value Reference Range Interpretation Comments Aspartate Amino Transf (AST/SGOT) (test code = Aspartate Amino Transf (AST/SGOT)) 13 5-34 [facility] CenterAlanine Aminotransferase (ALT/SGPT) 2018-01-21 08:50:00* Test Item Value Reference Range Interpretation Comments Alanine Aminotransferase (ALT/SGPT) (test code = 1742-6) 15 0-55 [facility] CenterTotal Qgsjxzc4739-00-96 08:50:00* Test Item Value Reference Range Interpretation Comments Total Protein (test code = 2885-2) 6.5 6.5-8.1 [facility] CenterAlbumin2018-08-23 08:50:00* Test Item Value Reference Range Interpretation Comments Albumin (test code = 1751-7) 3.5 3.5-5.0 [facility] CenterGlobulin2018-08-23 08:50:00* Test Item Value Reference Range Interpretation Comments Globulin (test code = 02631-6) 3.0 2.3-3.5 [facility] CenterAlbumin/Globulin Jiofs7273-41-66 08:50:00 * Test Item Value Reference Range Interpretation Comments Albumin/Globulin Ratio (test code = 1759-0) 1.2 0.8-2.0 [facility] CenterAlkaline Hucuuapysfk4406-41-56 08:50:00* Test Item Value Reference Range Interpretation Comments Alkaline Phosphatase (test code = 6768-6) 90 40-150 [facility] CenterCreatine Ordsvs0310-13-68 08:50:00* Test Item Value Reference Range Interpretation Comments Creatine Kinase (test code = 2157-6) 75 29-168 [facility] CenterAmylase Vpfbn6951-48-71 08:50:00* Test Item Value Reference Range Interpretation Comments Amylase Level (test code = 1798-8) 96 25-125 [facility] CenterLipase2018-08-23 08:50:00* Test Item Value Reference Range Interpretation Comments Lipase (test code = 3040-3) 28 8-78 [facility] CenterCreatine Bykfcc7823-92-93 08:50:00* Test Item Value Reference Range Interpretation Comments Creatine Kinase (test code = 2157-6) 75 29-168 [facility] CenterAmylase Jilap8397-08-44 08:50:00* Test Item Value Reference Range Interpretation Comments Amylase Level (test code = 1798-8) 96 25-125 [facility] CenterCreatine Liaxib7536-47-92 08:50:00* Test Item Value Reference Range Interpretation Comments Creatine Kinase (test code = 2157-6) 75 29-168 [facility] CenterCreatine Htjvni5184-81-67 08:50:00* Test Item Value Reference Range Interpretation Comments Creatine Kinase (test code = 2157-6) 75 29-168 [facility] CenterCreatine Lfodlt2251-40-35 08:50:00* Test Item Value Reference Range Interpretation Comments Creatine Kinase (test code = 2157-6) 75 29-168 [facility] CenterCreatine Bmysvs0962-35-32 08:50:00* Test Item Value Reference Range Interpretation Comments Creatine Kinase (test code = 2157-6) 75 29-168 [facility] CenterCreatine Niduaq4116-03-58 08:50:00* Test Item Value Reference Range Interpretation Comments Creatine Kinase (test code = 2157-6) 75 29-168 [facility] CenterCreatine Nblaxl8605-17-37 08:50:00* Test Item Value Reference Range Interpretation Comments Creatine Kinase (test code = 2157-6) 75 29-168 [facility] CenterCreatine Iqdgge4245-76-61 08:50:00* Test Item Value Reference Range Interpretation Comments Creatine Kinase (test code = 2157-6) 75 29-168 [facility] CenterHuman Chorionic Gonadotropin, Qual 2018-01-21 08:38:00* Test Item Value Reference Range Interpretation Comments Human Chorionic Gonadotropin, Qual (test code = 2118-8) NEGATIVE NEGATIVE [facility] CenterHuomega Chorionic Gonadotropin, Qual 2018-01-21 08:38:00* Test Item Value Reference Range Interpretation Comments Human Chorionic Gonadotropin, Qual (test code = 2118-8) NEGATIVE NEGATIVE [facility] CenterHuman Chorionic Gonadotropin, Qual 2018-01-21 08:38:00* Test Item Value Reference Range Interpretation Comments Human Chorionic Gonadotropin, Qual (test code = 2118-8) NEGATIVE NEGATIVE [facility] CenterUrine ZAW9505-51-34 08:35:00* Test Item Value Reference Range Interpretation Comments Urine WBC (test code = 5821-4) 0-5 0-5 [facility] CenterUrine RXK2496-40-35 08:35:00* Test Item Value Reference Range Interpretation Comments Urine RBC (test code = 68059-5) 0-5 0-5 [facility] CenterUrine Mghuzupb6842-64-80 08:35:00* Test Item Value Reference Range Interpretation Comments Urine Bacteria (test code = 29331-0) MANY NONE H [facility] CenterUrine Epithelial Imysv8593-39-14 08:35:00 * Test Item Value Reference Range Interpretation Comments Urine Epithelial Cells (test code = 74412-8) MODERATE NONE [facility] CenterUrine Khcao2333-97-42 08:30:00* Test Item Value Reference Range Interpretation Comments Urine Color (test code = 5778-6) YELLOW YELLOW [facility] CenterUrine Lgtwgox5789-10-25 08:30:00* Test Item Value Reference Range Interpretation Comments Urine Clarity (test code = 80406-5) SL CLOUDY CLEAR [facility] CenterUrine Specific Zrgulas2919-65-11 08:30:00 * Test Item Value Reference Range Interpretation Comments Urine Specific [place] (test code = 5811-5) 1.005 1.010-1.02 5 L [facility] CenterUrine tE4960-29-86 08:30:00* Test Item Value Reference Range Interpretation Comments Urine pH (test code = 75319-1) 6 5-7 [facility] CenterU[facility] Leukocyte Dttijcgc6613-23-79 08:30:00* Test Item Value Reference Range Interpretation Comments Urine Leukocyte Esterase (test code = 5799-2) NEGATIVE NEGATIVE [facility] CenterU[facility] Imuhdjw3159-18-23 08:30:00* Test Item Value Reference Range Interpretation Comments Urine Nitrite (test code = 22512-5) POSITIVE NEGATIVE H [facility] CenterUrine Opbqpyf9330-58-75 08:30:00* Test Item Value Reference Range Interpretation Comments Urine Protein (test code = 5804-0) NEGATIVE NEGATIVE [facility] CenterUrine Glucose (UA)2018-01-21 08:30:00* Test Item Value Reference Range Interpretation Comments Urine Glucose (UA) (test code = 2349-9) NEGATIVE NEGATIVE [facility] CenterU[facility] Gklvndu8204-66-03 08:30:00* Test Item Value Reference Range Interpretation Comments Urine Ketones (test code = 53167-1) NEGATIVE NEGATIVE [facility] CenterU[facility] Zryqsgtuixls3984-21-43 08:30:00* Test Item Value Reference Range Interpretation Comments Urine Urobilinogen (test code = 58299-6) 0.2 0.2-1 [facility] CenterUrine Rccdprpcv3155-81-80 08:30:00* Test Item Value Reference Range Interpretation Comments Urine Bilirubin (test code = 1978-6) NEGATIVE NEGATIVE [facility] CenterU[facility] Tkhno4879-56-42 08:30:00* Test Item Value Reference Range Interpretation Comments Urine Blood (test code = 59199-9) NEGATIVE NEGATIVE [facility] CenterWhite Blood Cmbun0876-49-89 08:29:00* Test Item Value Reference Range Interpretation Comments White Blood Count (test code = 6690-2) 5.64 4.8-10.8 [facility] CenterRed Blood Nynqr7362-55-30 08:29:00* Test Item Value Reference Range Interpretation Comments Red Blood Count (test code = 789-8) 4.36 3.6-5.1 [facility] CenterHemoglobin2018-08-23 08:29:00* Test Item Value Reference Range Interpretation Comments Hemoglobin (test code = 10569-2) 12.8 12.0-16.0 [facility] CenterHematocrit2018-08-23 08:29:00* Test Item Value Reference Range Interpretation Comments Hematocrit (test code = 4544-3) 37.7 34.2-44.1 [facility] CenterMean Corpuscular Agauvb5041-91-81 08:29:00* Test Item Value Reference Range Interpretation Comments Mean Corpuscular Volume (test code = 787-2) 86.5 81-99 [facility] CenterMean Corpuscular Iqskivdrid2970-37-58 08:29:00* Test Item Value Reference Range Interpretation Comments Mean Corpuscular Hemoglobin (test code = 785-6) 29.4 28-32 [facility] CenterMean Corpuscular Hemoglobin Concent 2018-01-21 08:29:00* Test Item Value Reference Range Interpretation Comments Mean Corpuscular Hemoglobin Concent (test code = 786-4) 34.0 31-35 [facility] CenterRed Cell Distribution Qasoa3523-50-51 08:29:00* Test Item Value Reference Range Interpretation Comments Red Cell Distribution Width (test code = 16931-1) 14.2 11.7 -14.4 [facility] CenterPlatelet Xbqjn0298-22-01 08:29:00* Test Item Value Reference Range Interpretation Comments Platelet Count (test code = 777-3) 263 140-360 [facility] CenterNeutrophils (%) (Auto)2018-01-21 08:29:00 * Test Item Value Reference Range Interpretation Comments Neutrophils (%) (Auto) (test code = 09989-8) 64.9 38.7-80.0 [facility] CenterLymphocytes (%) (Auto)2018-01-21 08:29:00 * Test Item Value Reference Range Interpretation Comments Lymphocytes (%) (Auto) (test code = 736-9) 28.2 18.0-39.1 [facility] CenterMonocytes (%) (Auto)2018-01-21 08:29:00* Test Item Value Reference Range Interpretation Comments Monocytes (%) (Auto) (test code = 5905-5) 5.0 4.4-11.3 [facility] CenterEosinophils (%) (Auto)2018-01-21 08:29:00 * Test Item Value Reference Range Interpretation Comments Eosinophils (%) (Auto) (test code = 713-8) 1.4 0.0-6.0 [facility] CenterBasophils (%) (Auto)2018-01-21 08:29:00* Test Item Value Reference Range Interpretation Comments Basophils (%) (Auto) (test code = 706-2) 0.5 0.0-1.0 [facility] CenterIM GRANULOCYTES %2018-01-21 08:29:00* Test Item Value Reference Range Interpretation Comments IM GRANULOCYTES % (test code = IM GRANULOCYTES %) 0.0 0.0- 1.0 [facility] CenterNeutrophils # (Auto)2018-01-21 08:29:00* Test Item Value Reference Range Interpretation Comments Neutrophils # (Auto) (test code = 751-8) 3.7 2.1-6.9 [facility] CenterLymphocytes # (Auto)2018-01-21 08:29:00* Test Item Value Reference Range Interpretation Comments Lymphocytes # (Auto) (test code = 47675-7) 1.6 1.0-3.2 [facility] CenterMonocytes # (Auto)2018-01-21 08:29:00* Test Item Value Reference Range Interpretation Comments Monocytes # (Auto) (test code = 742-7) 0.3 0.2-0.8 [facility] CenterEosinophils # (Auto)2018-01-21 08:29:00* Test Item Value Reference Range Interpretation Comments Eosinophils # (Auto) (test code = 711-2) 0.1 0.0-0.4 [facility] CenterBasophils # (Auto)2018-01-21 08:29:00* Test Item Value Reference Range Interpretation Comments Basophils # (Auto) (test code = 704-7) 0.0 0.0-0.1 [facility] CenterAbsolute Immature Granulocyte (auto 2018-01-21 08:29:00* Test Item Value Reference Range Interpretation Comments Absolute Immature Granulocyte (auto (alexa t code = Absolute Immature Granulocyte (auto) 0 0-0.1 [facility] CenterWhite Blood Nzusx9770-29-80 08:29:00* Test Item Value Reference Range Interpretation Comments White Blood Count (test code = 6690-2) 5.64 4.8-10.8 [facility] CenterRed Blood Mibue8519-44-58 08:29:00* Test Item Value Reference Range Interpretation Comments Red Blood Count (test code = 789-8) 4.36 3.6-5.1 [facility] CenterHemoglobin2018-08-23 08:29:00* Test Item Value Reference Range Interpretation Comments Hemoglobin (test code = 95737-9) 12.8 12.0-16.0 [facility] CenterHematocrit2018-08-23 08:29:00* Test Item Value Reference Range Interpretation Comments Hematocrit (test code = 4544-3) 37.7 34.2-44.1 [facility] CenterMean Corpuscular Dncqlp0292-53-15 08:29:00* Test Item Value Reference Range Interpretation Comments Mean Corpuscular Volume (test code = 787-2) 86.5 81-99 [facility] CenterMean Corpuscular Asbderoozs5167-74-21 08:29:00* Test Item Value Reference Range Interpretation Comments Mean Corpuscular Hemoglobin (test code = 785-6) 29.4 28-32 [facility] CenterMean Corpuscular Hemoglobin Concent 2018-01-21 08:29:00* Test Item Value Reference Range Interpretation Comments Mean Corpuscular Hemoglobin Concent (test code = 786-4) 34.0 31-35 [facility] CenterRed Cell Distribution Ogpea3594-05-26 08:29:00* Test Item Value Reference Range Interpretation Comments Red Cell Distribution Width (test code = 35128-2) 14.2 11.7 -14.4 [facility] CenterPlatelet Ejdtx8545-81-52 08:29:00* Test Item Value Reference Range Interpretation Comments Platelet Count (test code = 777-3) 263 140-360 [facility] CenterNeutrophils (%) (Auto)2018-01-21 08:29:00 * Test Item Value Reference Range Interpretation Comments Neutrophils (%) (Auto) (test code = 69877-7) 64.9 38.7-80.0 [facility] CenterLymphocytes (%) (Auto)2018-01-21 08:29:00 * Test Item Value Reference Range Interpretation Comments Lymphocytes (%) (Auto) (test code = 736-9) 28.2 18.0-39.1 [facility] CenterMonocytes (%) (Auto)2018-01-21 08:29:00* Test Item Value Reference Range Interpretation Comments Monocytes (%) (Auto) (test code = 5905-5) 5.0 4.4-11.3 [facility] CenterEosinophils (%) (Auto)2018-01-21 08:29:00 * Test Item Value Reference Range Interpretation Comments Eosinophils (%) (Auto) (test code = 713-8) 1.4 0.0-6.0 [facility] CenterBasophils (%) (Auto)2018-01-21 08:29:00* Test Item Value Reference Range Interpretation Comments Basophils (%) (Auto) (test code = 706-2) 0.5 0.0-1.0 [facility] CenterIM GRANULOCYTES %2018-01-21 08:29:00* Test Item Value Reference Range Interpretation Comments IM GRANULOCYTES % (test code = IM GRANULOCYTES %) 0.0 0.0- 1.0 [facility] CenterNeutrophils # (Auto)2018-01-21 08:29:00* Test Item Value Reference Range Interpretation Comments Neutrophils # (Auto) (test code = 751-8) 3.7 2.1-6.9 [facility] CenterLymphocytes # (Auto)2018-01-21 08:29:00* Test Item Value Reference Range Interpretation Comments Lymphocytes # (Auto) (test code = 19429-9) 1.6 1.0-3.2 [facility] CenterMonocytes # (Auto)2018-01-21 08:29:00* Test Item Value Reference Range Interpretation Comments Monocytes # (Auto) (test code = 742-7) 0.3 0.2-0.8 [facility] CenterEosinophils # (Auto)2018-01-21 08:29:00* Test Item Value Reference Range Interpretation Comments Eosinophils # (Auto) (test code = 711-2) 0.1 0.0-0.4 [facility] CenterBasophils # (Auto)2018-01-21 08:29:00* Test Item Value Reference Range Interpretation Comments Basophils # (Auto) (test code = 704-7) 0.0 0.0-0.1 [facility] CenterAbsolute Immature Granulocyte (auto 2018-01-21 08:29:00* Test Item Value Reference Range Interpretation Comments Absolute Immature Granulocyte (auto (alexa t code = Absolute Immature Granulocyte (auto) 0 0-0.1 [facility] CenterCT ABDOMEN/PELVIS N6057-80-00 12:07:00 [place] [address] Patient Name: ANGELA ESPINOSA MR #: [id number] D OB: 1975 Age/Sex: 42/F Req #: [id number] Adm Physic domo: Ordered by: MADELINE GILBERT MD Report #: [id number] Location: [facility]/Bed: Procedure: CT/CT ABDOMEN/PELVIS W Exam Date: 12/04/17 [...] Level (test code = 1798-8) 52 25-125 [facility] CenterLipase2018-07-06 08:54:00* Test Item Value Reference Range Interpretation Comments Lipase (test code = 3040-3) 20 8-78 [facility] Gqbov5926-74-46 08:41:00* Test Item Value Reference Range Interpretation Comments Sodium Level (test code = 2951-2) 138 136-145 [facility] CenterPotassium Dbytj3218-87-29 08:41:00* Test Item Value Reference Range Interpretation Comments Potassium Level (test code = 2823-3) 3.7 3.5-5.1 [facility] CenterChloride Iqsom4751-26-05 08:41:00* Test Item Value Reference Range Interpretation Comments Chloride Level (test code = 2075-0) 108 98-107 H [facility] CenterCarbon Dioxide Hnvxz2925-31-85 08:41:00* Test Item Value Reference Range Interpretation Comments Carbon Dioxide Level (test code = 2028-9) 22 22-29 [facility] CenterAnion Jqv4240-45-64 08:41:00* Test Item Value Reference Range Interpretation Comments Anion Gap (test code = 31918-3) 11.7 8-16 [facility] CenterBlood Urea Hcqcykjl8160-62-67 08:41:00* Test Item Value Reference Range Interpretation Comments Blood Urea Nitrogen (test code = 3094-0) 11 7-26 [facility] CenterCreatinine2018-07-06 08:41:00* Test Item Value Reference Range Interpretation Comments Creatinine (test code = 2160-0) 0.88 0.57-1.11 [facility] CenterBUN/Creatinine Btfgd5499-46-75 08:41:00* Test Item Value Reference Range Interpretation Comments BUN/Creatinine Ratio (test code = 3097-3) 13 6-25 [facility] CenterEstimat Glomerular Filtration Rate 2017-12-04 08:41:00* Test Item Value Reference Range Interpretation Comments Estimat Glomerular Filtration Rate (test code = 85991-7) 60- >60 Ranges were taken from the National Kidney Disease Education Program and the [facility] Foundation literature.Reference ranges:60 or greater: Nzzggo12-71 ( for 3 consecutive months): Chronic kidney disease 15 or less: Kidney failureSaint [facility] Medical CenterGlucose Rgiij5547-07-07 08:41:00* Test Item Value Reference Range Interpretation Comments Glucose Level (test code = YDM8001) 95 74-118 [facility] CenterCalcium Yyfwc2954-77-20 08:41:00* Test Item Value Reference Range Interpretation Comments Calcium Level (test code = 33529-8) 9.2 8.4-10.2 [facility] CenterTotal Qumdytqzf3791-35-41 08:41:00* Test Item Value Reference Range Interpretation Comments Total Bilirubin (test code = 1975-2) 0.8 0.2-1.2 [facility] CenterAspartate Amino Transf (AST/SGOT) 2017-12-04 08:41:00* Test Item Value Reference Range Interpretation Comments Aspartate Amino Transf (AST/SGOT) (test code = Aspartate Amino Transf (AST/SGOT)) 15 5-34 [facility] CenterAlanine Aminotransferase (ALT/SGPT) 2017-12-04 08:41:00* Test Item Value Reference Range Interpretation Comments Alanine Aminotransferase (ALT/SGPT) (test code = 1742-6) 13 0-55 [facility] CenterTotal Wptriwt1630-77-45 08:41:00* Test Item Value Reference Range Interpretation Comments Total Protein (test code = 2885-2) 6.9 6.5-8.1 [facility] CenterAlbumin2018-07-06 08:41:00* Test Item Value Reference Range Interpretation Comments Albumin (test code = 1751-7) 3.8 3.5-5.0 [facility] CenterGlobulin2018-07-06 08:41:00* Test Item Value Reference Range Interpretation Comments Globulin (test code = 52133-3) 3.1 2.3-3.5 [facility] CenterAlbumin/Globulin Bwgpf0418-63-86 08:41:00 * Test Item Value Reference Range Interpretation Comments Albumin/Globulin Ratio (test code = 1759-0) 1.2 0.8-2.0 [facility] CenterAlkaline Psgcllxyaru5064-54-60 08:41:00* Test Item Value Reference Range Interpretation Comments Alkaline Phosphatase (test code = 6768-6) 83 40-150 [facility] CenterUrine RVZ3429-64-91 08:39:00* Test Item Value Reference Range Interpretation Comments Urine WBC (test code = 5821-4) 0-5 0-5 [facility] CenterUrine ZZW7933-58-55 08:39:00* Test Item Value Reference Range Interpretation Comments Urine RBC (test code = 94830-2) NONE 0-5 [facility] CenterUrine Irzpsdin0653-29-00 08:39:00* Test Item Value Reference Range Interpretation Comments Urine Bacteria (test code = 06494-0) FEW NONE [facility] CenterUrine Epithelial Qoazf4818-78-44 08:39:00 * Test Item Value Reference Range Interpretation Comments Urine Epithelial Cells (test code = 90780-9) FEW NONE [facility] CenterUrine Njtrn1254-75-76 08:28:00* Test Item Value Reference Range Interpretation Comments Urine Color (test code = 5778-6) YELLOW YELLOW [facility] CenterUrine Vwzwzvl9974-74-86 08:28:00* Test Item Value Reference Range Interpretation Comments Urine Clarity (test code = 25206-1) CLEAR CLEAR [facility] CenterUrine Specific Pfeshir1265-58-80 08:28:00 * Test Item Value Reference Range Interpretation Comments Urine Specific [place] (test code = 5811-5) 1.020 1.010-1.02 5 [facility] CenterUrine xL8285-42-20 08:28:00* Test Item Value Reference Range Interpretation Comments Urine pH (test code = 29555-5) 6 5-7 [facility] CenterUrine Leukocyte Tvvhmmxv5344-89-47 08:28:00* Test Item Value Reference Range Interpretation Comments Urine Leukocyte Esterase (test code = 5799-2) NEGATIVE NEGATIVE [facility] CenterUrine Lganiic5340-43-67 08:28:00* Test Item Value Reference Range Interpretation Comments Urine Nitrite (test code = 52266-9) NEGATIVE NEGATIVE [facility] CenterUrine Wbnryjr6600-74-29 08:28:00* Test Item Value Reference Range Interpretation Comments Urine Protein (test code = 5804-0) NEGATIVE NEGATIVE [facility] CenterUrine Glucose (UA)2017-12-04 08:28:00* Test Item Value Reference Range Interpretation Comments Urine Glucose (UA) (test code = 2349-9) NEGATIVE NEGATIVE [facility] CenterUrine Tusfbjj2013-83-85 08:28:00* Test Item Value Reference Range Interpretation Comments Urine Ketones (test code = 08646-2) NEGATIVE NEGATIVE [facility] CenterUrine Iejxvzghjgsk7478-25-29 08:28:00* Test Item Value Reference Range Interpretation Comments Urine Urobilinogen (test code = 83823-5) 0.2 0.2-1 [facility] CenterUrine Gxqgriqdi2521-32-40 08:28:00* Test Item Value Reference Range Interpretation Comments Urine Bilirubin (test code = 1978-6) NEGATIVE NEGATIVE [facility] CenterUrine Wicou8261-86-72 08:28:00* Test Item Value Reference Range Interpretation Comments Urine Blood (test code = 58451-6) NEGATIVE NEGATIVE [facility] CenterWhite Blood Mnnha7206-18-45 08:25:00* Test Item Value Reference Range Interpretation Comments White Blood Count (test code = 6690-2) 6.93 4.8-10.8 [facility] CenterRed Blood Yexdo9179-87-65 08:25:00* Test Item Value Reference Range Interpretation Comments Red Blood Count (test code = 789-8) 4.59 3.6-5.1 [facility] CenterHemoglobin2018-07-06 08:25:00* Test Item Value Reference Range Interpretation Comments Hemoglobin (test code = 76639-1) 13.1 12.0-16.0 [facility] CenterHematocrit2018-07-06 08:25:00* Test Item Value Reference Range Interpretation Comments Hematocrit (test code = 4544-3) 38.0 34.2-44.1 [facility] CenterMean Corpuscular Wqdtjt7810-29-16 08:25:00* Test Item Value Reference Range Interpretation Comments Mean Corpuscular Volume (test code = 787-2) 82.8 81-99 [facility] CenterMean Corpuscular Dvkghbzuzr9448-23-71 08:25:00* Test Item Value Reference Range Interpretation Comments Mean Corpuscular Hemoglobin (test code = 785-6) 28.5 28-32 [facility] CenterMean Corpuscular Hemoglobin Concent 2017-12-04 08:25:00* Test Item Value Reference Range Interpretation Comments Mean Corpuscular Hemoglobin Concent (test code = 786-4) 34.5 31-35 [facility] CenterRed Cell Distribution Owfvo4482-73-16 08:25:00* Test Item Value Reference Range Interpretation Comments Red Cell Distribution Width (test code = 12506-3) 13.8 11.7 -14.4 [facility] CenterPlatelet Sqkny5872-62-80 08:25:00* Test Item Value Reference Range Interpretation Comments Platelet Count (test code = 777-3) 275 140-360 [facility] CenterNeutrophils (%) (Auto)2017-12-04 08:25:00 * Test Item Value Reference Range Interpretation Comments Neutrophils (%) (Auto) (test code = 93809-7) 71.1 38.7-80.0 [facility] CenterLymphocytes (%) (Auto)2017-12-04 08:25:00 * Test Item Value Reference Range Interpretation Comments Lymphocytes (%) (Auto) (test code = 736-9) 22.5 18.0-39.1 [facility] CenterMonocytes (%) (Auto)2017-12-04 08:25:00* Test Item Value Reference Range Interpretation Comments Monocytes (%) (Auto) (test code = 5905-5) 4.2 4.4-11.3 L [facility] CenterEosinophils (%) (Auto)2017-12-04 08:25:00 * Test Item Value Reference Range Interpretation Comments Eosinophils (%) (Auto) (test code = 713-8) 1.4 0.0-6.0 [facility] CenterBasophils (%) (Auto)2017-12-04 08:25:00* Test Item Value Reference Range Interpretation Comments Basophils (%) (Auto) (test code = 706-2) 0.7 0.0-1.0 [facility] CenterIM GRANULOCYTES %2017-12-04 08:25:00* Test Item Value Reference Range Interpretation Comments IM GRANULOCYTES % (test code = IM GRANULOCYTES %) 0.1 0.0- 1.0 [facility] CenterNeutrophils # (Auto)2017-12-04 08:25:00* Test Item Value Reference Range Interpretation Comments Neutrophils # (Auto) (test code = 751-8) 4.9 2.1-6.9 [facility] CenterLymphocytes # (Auto)2017-12-04 08:25:00* Test Item Value Reference Range Interpretation Comments Lymphocytes # (Auto) (test code = 55449-8) 1.6 1.0-3.2 [facility] CenterMonocytes # (Auto)2017-12-04 08:25:00* Test Item Value Reference Range Interpretation Comments Monocytes # (Auto) (test code = 742-7) 0.3 0.2-0.8 [facility] CenterEosinophils # (Auto)2017-12-04 08:25:00* Test Item Value Reference Range Interpretation Comments Eosinophils # (Auto) (test code = 711-2) 0.1 0.0-0.4 [facility] CenterBasophils # (Auto)2017-12-04 08:25:00* Test Item Value Reference Range Interpretation Comments Basophils # (Auto) (test code = 704-7) 0.1 0.0-0.1 [facility] CenterAbsolute Immature Granulocyte (auto 2017-12-04 08:25:00* Test Item Value Reference Range Interpretation Comments Absolute Immature Granulocyte (auto (alexa t code = Absolute Immature Granulocyte (auto) 0.01 0-0.1 [facility] CenterCT ABDOMEN/PELVIS U4417-74-04 10:22:00 [place] [address] Patient Name: ANGELA ESPINOSA MR #: [id number] D OB: 1975 Age/Sex: 41/F Req #: [id number] Adm Physic domo: Ordered by: CANDE LOUIS MD Report #: [id number] Location: Room/Bed: Procedure: [id number] CT/CT ABDOMEN/PELVIS W Exam Date: 11/17/17 Exam [...] 22 COPY TO: CANDE LOUIS MD Sodium Zfuiv0071-89-41 08:38:00 * Test Item Value Reference Range Interpretation Comments Sodium Level (test code = 2951-2) 136 136-145 [facility] CenterPotassium Utiae2379-15-43 08:38:00* Test Item Value Reference Range Interpretation Comments Potassium Level (test code = 2823-3) 4.2 3.5-5.1 [facility] CenterChloride Xraxz1099-69-16 08:38:00* Test Item Value Reference Range Interpretation Comments Chloride Level (test code = 2075-0) 109 98-107 H [facility] CenterCarbon Dioxide Wfkof0924-99-87 08:38:00* Test Item Value Reference Range Interpretation Comments Carbon Dioxide Level (test code = 2028-9) 19 22-29 L [facility] CenterAnion Tgm0094-38-39 08:38:00* Test Item Value Reference Range Interpretation Comments Anion Gap (test code = 04434-6) 12.2 8-16 [facility] CenterBlood Urea Ujwebqsh5701-56-15 08:38:00* Test Item Value Reference Range Interpretation Comments Blood Urea Nitrogen (test code = 3094-0) 14 7-26 [facility] CenterCreatinine2018-06-19 08:38:00* Test Item Value Reference Range Interpretation Comments Creatinine (test code = 2160-0) 0.83 0.57-1.11 [facility] CenterBUN/Creatinine Tlxio5558-87-03 08:38:00* Test Item Value Reference Range Interpretation Comments BUN/Creatinine Ratio (test code = 3097-3) 17 6-25 [facility] CenterEstimat Glomerular Filtration Rate 2017-11-17 08:38:00* Test Item Value Reference Range Interpretation Comments Estimat Glomerular Filtration Rate (test code = 36077-9) 60- >60 Ranges were taken from the National Kidney Disease Education Program and the [facility] literature.Reference ranges:60 or greater: Rqyrul93-23 ( for 3 consecutive months): Chronic kidney disease 15 or less: Kidney failureSaint [facility] Medical CenterGlucose Mpkso3238-35-80 08:38:00* Test Item Value Reference Range Interpretation Comments Glucose Level (test code = OAK9967) 105 74-118 [facility] CenterCalcium Uglaz8666-68-99 08:38:00* Test Item Value Reference Range Interpretation Comments Calcium Level (test code = 09839-2) 9.2 8.4-10.2 [facility] CenterTotal Vkrbouzrn5076-78-31 08:38:00* Test Item Value Reference Range Interpretation Comments Total Bilirubin (test code = 1975-2) 0.3 0.2-1.2 [facility] CenterAspartate Amino Transf (AST/SGOT) 2017-11-17 08:38:00* Test Item Value Reference Range Interpretation Comments Aspartate Amino Transf (AST/SGOT) (test code = Aspartate Amino Transf (AST/SGOT)) 14 5-34 [facility] CenterAlanine Aminotransferase (ALT/SGPT) 2017-11-17 08:38:00* Test Item Value Reference Range Interpretation Comments Alanine Aminotransferase (ALT/SGPT) (test code = 1742-6) 18 0-55 [facility] CenterTotal Avxcgid4646-12-97 08:38:00* Test Item Value Reference Range Interpretation Comments Total Protein (test code = 2885-2) 6.8 6.5-8.1 [facility] CenterAlbumin2018-06-19 08:38:00* Test Item Value Reference Range Interpretation Comments Albumin (test code = 1751-7) 3.8 3.5-5.0 [facility] CenterGlobulin2018-06-19 08:38:00* Test Item Value Reference Range Interpretation Comments Globulin (test code = 45231-3) 3.0 2.3-3.5 [facility] CenterAlbumin/Globulin Nxarw9011-63-68 08:38:00 * Test Item Value Reference Range Interpretation Comments Albumin/Globulin Ratio (test code = 1759-0) 1.3 0.8-2.0 [facility] CenterAlkaline Qyetplibdgp9405-10-43 08:38:00* Test Item Value Reference Range Interpretation Comments Alkaline Phosphatase (test code = 6768-6) 87 40-150 [facility] CenterAmylase Dfgqw1975-05-10 08:38:00* Test Item Value Reference Range Interpretation Comments Amylase Level (test code = 1798-8) 79 25-125 [facility] CenterLipase2018-06-19 08:38:00* Test Item Value Reference Range Interpretation Comments Lipase (test code = 3040-3) 38 8-78 [facility] CenterUrine HUR0374-01-06 08:23:00* Test Item Value Reference Range Interpretation Comments Urine WBC (test code = 5821-4) 0-5 0-5 [facility] CenterUrine UFG3910-67-17 08:23:00* Test Item Value Reference Range Interpretation Comments Urine RBC (test code = 40914-4) 0-5 0-5 [facility] CenterUrine Gukdiylf3102-47-13 08:23:00* Test Item Value Reference Range Interpretation Comments Urine Bacteria (test code = 74199-3) FEW NONE [facility] CenterUrine Epithelial Hjtek4825-59-62 08:23:00 * Test Item Value Reference Range Interpretation Comments Urine Epithelial Cells (test code = 22703-0) MODERATE NONE [facility] CenterUrine Yzfmu8367-55-67 08:20:00* Test Item Value Reference Range Interpretation Comments Urine Color (test code = 5778-6) YELLOW YELLOW [facility] CenterUrine Njqrbsr6097-24-43 08:20:00* Test Item Value Reference Range Interpretation Comments Urine Clarity (test code = 96914-2) SL CLOUDY CLEAR [facility] Specific Cusfoue3710-80-40 08:20:00 * Test Item Value Reference Range Interpretation Comments Urine Specific [place] (test code = 5811-5) 1.025 1.010-1.02 5 [facility] CenterUrine vK8966-05-93 08:20:00* Test Item Value Reference Range Interpretation Comments Urine pH (test code = 41900-8) 6 5-7 [facility] Leukocyte Vyynkayn1858-20-91 08:20:00* Test Item Value Reference Range Interpretation Comments Urine Leukocyte Esterase (test code = 5799-2) NEGATIVE NEGATIVE [facility] Sepsizu1531-01-43 08:20:00* Test Item Value Reference Range Interpretation Comments Urine Nitrite (test code = 95023-3) NEGATIVE NEGATIVE [facility] Ogkaqcm9697-19-36 08:20:00* Test Item Value Reference Range Interpretation Comments Urine Protein (test code = 5804-0) NEGATIVE NEGATIVE [facility] Glucose (UA)2017-11-17 08:20:00* Test Item Value Reference Range Interpretation Comments Urine Glucose (UA) (test code = 2349-9) NEGATIVE NEGATIVE [facility] Hxgnkqz8015-60-05 08:20:00* Test Item Value Reference Range Interpretation Comments Urine Ketones (test code = 99579-8) NEGATIVE NEGATIVE [facility] Biuqvahgqlju4739-08-44 08:20:00* Test Item Value Reference Range Interpretation Comments Urine Urobilinogen (test code = 37560-9) 0.2 0.2-1 [facility] Jgvioftco4708-06-39 08:20:00* Test Item Value Reference Range Interpretation Comments Urine Bilirubin (test code = 1978-6) NEGATIVE NEGATIVE [facility] CenterUrine Xzoec1741-06-21 08:20:00* Test Item Value Reference Range Interpretation Comments Urine Blood (test code = 48879-2) NEGATIVE NEGATIVE [facility] CenterWhite Blood Hjbrr4356-35-62 08:19:00* Test Item Value Reference Range Interpretation Comments White Blood Count (test code = 6690-2) 6.52 4.8-10.8 [facility] CenterRed Blood Apvdn0829-57-68 08:19:00* Test Item Value Reference Range Interpretation Comments Red Blood Count (test code = 789-8) 4.53 3.6-5.1 [facility] CenterHemoglobin2018-06-19 08:19:00* Test Item Value Reference Range Interpretation Comments Hemoglobin (test code = 05800-8) 13.1 12.0-16.0 [facility] CenterHematocrit2018-06-19 08:19:00* Test Item Value Reference Range Interpretation Comments Hematocrit (test code = 4544-3) 38.2 34.2-44.1 [facility] CenterMean Corpuscular Icalwe0144-83-32 08:19:00* Test Item Value Reference Range Interpretation Comments Mean Corpuscular Volume (test code = 787-2) 84.3 81-99 [facility] CenterMean Corpuscular Kzervxnfng5264-24-61 08:19:00* Test Item Value Reference Range Interpretation Comments Mean Corpuscular Hemoglobin (test code = 785-6) 28.9 28-32 [facility] CenterMean Corpuscular Hemoglobin Concent 2017-11-17 08:19:00* Test Item Value Reference Range Interpretation Comments Mean Corpuscular Hemoglobin Concent (test code = 786-4) 34.3 31-35 [facility] CenterRed Cell Distribution Ywnke3809-15-99 08:19:00* Test Item Value Reference Range Interpretation Comments Red Cell Distribution Width (test code = 13734-3) 14.1 11.7 -14.4 [facility] CenterPlatelet Wdgew3783-18-50 08:19:00* Test Item Value Reference Range Interpretation Comments Platelet Count (test code = 777-3) 275 140-360 [facility] CenterNeutrophils (%) (Auto)2017-11-17 08:19:00 * Test Item Value Reference Range Interpretation Comments Neutrophils (%) (Auto) (test code = 05689-1) 69.1 38.7-80.0 [facility] CenterLymphocytes (%) (Auto)2017-11-17 08:19:00 * Test Item Value Reference Range Interpretation Comments Lymphocytes (%) (Auto) (test code = 736-9) 23.3 18.0-39.1 [facility] CenterMonocytes (%) (Auto)2017-11-17 08:19:00* Test Item Value Reference Range Interpretation Comments Monocytes (%) (Auto) (test code = 5905-5) 5.2 4.4-11.3 [facility] CenterEosinophils (%) (Auto)2017-11-17 08:19:00 * Test Item Value Reference Range Interpretation Comments Eosinophils (%) (Auto) (test code = 713-8) 1.4 0.0-6.0 [facility] CenterBasophils (%) (Auto)2017-11-17 08:19:00* Test Item Value Reference Range Interpretation Comments Basophils (%) (Auto) (test code = 706-2) 0.8 0.0-1.0 [facility] CenterIM GRANULOCYTES %2017-11-17 08:19:00* Test Item Value Reference Range Interpretation Comments IM GRANULOCYTES % (test code = IM GRANULOCYTES %) 0.2 0.0- 1.0 [facility] CenterNeutrophils # (Auto)2017-11-17 08:19:00* Test Item Value Reference Range Interpretation Comments Neutrophils # (Auto) (test code = 751-8) 4.5 2.1-6.9 [facility] CenterLymphocytes # (Auto)2017-11-17 08:19:00* Test Item Value Reference Range Interpretation Comments Lymphocytes # (Auto) (test code = 69084-4) 1.5 1.0-3.2 [facility] CenterMonocytes # (Auto)2017-11-17 08:19:00* Test Item Value Reference Range Interpretation Comments Monocytes # (Auto) (test code = 742-7) 0.3 0.2-0.8 [facility] CenterEosinophils # (Auto)2017-11-17 08:19:00* Test Item Value Reference Range Interpretation Comments Eosinophils # (Auto) (test code = 711-2) 0.1 0.0-0.4 [facility] CenterBasophils # (Auto)2017-11-17 08:19:00* Test Item Value Reference Range Interpretation Comments Basophils # (Auto) (test code = 704-7) 0.1 0.0-0.1 [facility] CenterAbsolute Immature Granulocyte (auto 2017-11-17 08:19:00* Test Item Value Reference Range Interpretation Comments Absolute Immature Granulocyte (auto (alexa t code = Absolute Immature Granulocyte (auto) 0.01 0-0.1 [facility] CenterAspartate Amino Transf (AST/SGOT) 2017-10-26 10:34:00* Test Item Value Reference Range Interpretation Comments Aspartate Amino Transf (AST/SGOT) (test code = Aspartate Amino Transf (AST/SGOT)) 14 5-34 [facility] CenterCreatine Vanimk3916-29-61 10:34:00* Test Item Value Reference Range Interpretation Comments Creatine Kinase (test code = 2157-6) 58 29-168 [facility] CenterCreatine Ruzjas5154-37-53 10:34:00* Test Item Value Reference Range Interpretation Comments Creatine Kinase (test code = 2157-6) 58 29-168 [facility] CenterCreatine Llwbjs8049-37-60 10:34:00* Test Item Value Reference Range Interpretation Comments Creatine Kinase (test code = 2157-6) 58 29-168 [facility] CenterCreat[facility] Kinase XC1704-85-51 10:28:00* Test Item Value Reference Range Interpretation Comments Creatine Kinase MB (test code = 96095-7) 0.90 0-5.0 [facility] D8611-98-42 10:28:00* Test Item Value Reference Range Interpretation Comments Troponin I (test code = [id number]) -0.001 0-0.300 [facility] CenterCreatine Kinase XF5302-28-15 10:28:00* Test Item Value Reference Range Interpretation Comments Creatine Kinase MB (test code = 84298-9) 0.90 0-5.0 [facility] D0819-78-73 10:28:00* Test Item Value Reference Range Interpretation Comments Troponin I (test code = AZH4796) -0.001 0-0.300 [facility] CenterCreatine Kinase QW7712-16-41 10:28:00* Test Item Value Reference Range Interpretation Comments Creatine Kinase MB (test code = 68217-2) 0.90 0-5.0 [place] 56161018-05-28 10:28:00* Test Item Value Reference Range Interpretation Comments Troponin I (test code = ORH5675) -0.001 0-0.300 [facility] Dllsq1609-97-29 10:22:00* Test Item Value Reference Range Interpretation Comments Sodium Level (test code = 2951-2) 138 136-145 [facility]Potassium Gzecx8392-26-42 10:22:00* Test Item Value Reference Range Interpretation Comments Potassium Level (test code = 2823-3) 4.8 3.5-5.1 [facility] CenterChloride Xbrdf6362-23-66 10:22:00* Test Item Value Reference Range Interpretation Comments Chloride Level (test code = 2075-0) 109 98-107 H [facility] CenterCarbon Dioxide Dstlo8371-68-31 10:22:00* Test Item Value Reference Range Interpretation Comments Carbon Dioxide Level (test code = 2028-9) -29 [facility] CenterAnion Usy0185-41-23 10:22:00* Test Item Value Reference Range Interpretation Comments Anion Gap (test code = 25444-2) 11.8 8-16 [facility] CenterBlood Urea Reetyven2516-09-59 10:22:00* Test Item Value Reference Range Interpretation Comments Blood Urea Nitrogen (test code = 3094-0) 11 7-26 [facility] CenterCreatinine2018-05-28 10:22:00* Test Item Value Reference Range Interpretation Comments Creatinine (test code = 2160-0) 0.84 0.57-1.11 [facility] CenterBUN/Creatinine Dxlqf8446-64-89 10:22:00* Test Item Value Reference Range Interpretation Comments BUN/Creatinine Ratio (test code = 3097-3) 13 - [facility] CenterEstimat Glomerular Filtration Rate 2017-10-26 10:22:00* Test Item Value Reference Range Interpretation Comments Estimat Glomerular Filtration Rate (test code = 41899-9) 60- >60 Ranges were taken from the National Kidney Disease Education Program and the [facility] Kidney Foundation literature.Reference ranges:60 or greater: Jwpgsp63-63 ( for 3 consecutive months): Chronic kidney disease 15 or less: Kidney failureSaint [facility]illus Medical CenterGlucose Rfpky6357-51-86 10:22:00* Test Item Value Reference Range Interpretation Comments Glucose Level (test code = WPR2701) 98 74-118 [facility] CenterCalcium Zbcde0388-70-85 10:22:00* Test Item Value Reference Range Interpretation Comments Calcium Level (test code = 31201-4) 9.1 8.4-10.2 [facility] CenterTotal Ltqjoizhs5383-21-44 10:22:00* Test Item Value Reference Range Interpretation Comments Total Bilirubin (test code = 1975-2) 0.3 0.2-1.2 [facility] CenterAlanine Aminotransferase (ALT/SGPT) 2017-10-26 10:22:00* Test Item Value Reference Range Interpretation Comments Alanine Aminotransferase (ALT/SGPT) (test code = 1742-6) 23 0-55 [facility] CenterTotal Umumqxz4592-19-74 10:22:00* Test Item Value Reference Range Interpretation Comments Total Protein (test code = 2885-2) 6.6 6.5-8.1 [facility] CenterAlbumin2018-05-28 10:22:00* Test Item Value Reference Range Interpretation Comments Albumin (test code = 1751-7) 3.6 3.5-5.0 [facility] CenterGlobulin2018-05-28 10:22:00* Test Item Value Reference Range Interpretation Comments Globulin (test code = 31363-0) 3.0 2.3-3.5 [facility] CenterAlbumin/Globulin Yfxgo1966-28-97 10:22:00 * Test Item Value Reference Range Interpretation Comments Albumin/Globulin Ratio (test code = 1759-0) 1.2 0.8-2.0 [facility] CenterAlkaline Yunghtqxart1692-13-44 10:22:00* Test Item Value Reference Range Interpretation Comments Alkaline Phosphatase (test code = 6768-6) 79 40-150 [facility] CenterLipase2018-05-28 10:22:00* Test Item Value Reference Range Interpretation Comments Lipase (test code = 3040-3) 43 8-78 [facility] CenterUrine KQH9611-78-04 10:21:00* Test Item Value Reference Range Interpretation Comments Urine WBC (test code = 5821-4) 0-5 0-5 [facility] CenterUrine LZS4478-09-46 10:21:00* Test Item Value Reference Range Interpretation Comments Urine RBC (test code = 36783-2) 0-5 0-5 [facility] CenterU[facility] Uvztjlqh7388-82-39 10:21:00* Test Item Value Reference Range Interpretation Comments Urine Bacteria (test code = 13401-2) FEW NONE [facility] CenterUrine Epithelial Xqreh3185-58-35 10:21:00 * Test Item Value Reference Range Interpretation Comments Urine Epithelial Cells (test code = 02723-4) FEW NONE [facility] CenterUrine Dtjtn1235-79-87 10:21:00* Test Item Value Reference Range Interpretation Comments Urine Mucus (test code = 8247-9) FEW RARE H [facility] CenterUrine Vgejv7422-11-36 10:21:00* Test Item Value Reference Range Interpretation Comments Urine Mucus (test code = 8247-9) FEW [facility] Oqezo6668-55-63 10:21:00* Test Item Value Reference Range Interpretation Comments Urine Mucus (test code = 8247-9) FEW [facility] Huokn5757-63-32 10:21:00* Test Item Value Reference Range Interpretation Comments Urine Mucus (test code = 8247-9) FEW [facility] Ueeib3635-67-73 10:21:00* Test Item Value Reference Range Interpretation Comments Urine Mucus (test code = 8247-9) FEW [facility] Gvzfh8639-42-49 10:21:00* Test Item Value Reference Range Interpretation Comments Urine Mucus (test code = 8247-9) FEW [facility] Yktts5817-90-03 10:21:00* Test Item Value Reference Range Interpretation Comments Urine Mucus (test code = 8247-9) FEW [facility] Ewlvt3376-91-22 10:21:00* Test Item Value Reference Range Interpretation Comments Urine Mucus (test code = 8247-9) FEW [facility] Mdlix4922-90-69 10:21:00* Test Item Value Reference Range Interpretation Comments Urine Mucus (test code = 8247-9) FEW [facility] Agokb1804-80-76 10:21:00* Test Item Value Reference Range Interpretation Comments Urine Mucus (test code = 8247-9) FEW [facility] Tzarm2370-18-98 10:21:00* Test Item Value Reference Range Interpretation Comments Urine Mucus (test code = 8247-9) [facility] Fshod9986-44-45 10:12:00* Test Item Value Reference Range Interpretation Comments Urine Color (test code = 5778-6) YELLOW YELLOW [facility] Flwkgbo6168-02-28 10:12:00* Test Item Value Reference Range Interpretation Comments Urine Clarity (test code = 03516-3) CLEAR CLEAR [facility] CenterUrine Specific Mrfijud9646-30-74 10:12:00 * Test Item Value Reference Range Interpretation Comments Urine Specific [place] (test code = 5811-5) 1.015 1.010-1.02 5 [facility] CenterUrine cF9967-28-16 10:12:00* Test Item Value Reference Range Interpretation Comments Urine pH (test code = 41825-2) 5 5-7 [facility] CenterUrine Leukocyte Sycggrfh3785-95-19 10:12:00* Test Item Value Reference Range Interpretation Comments Urine Leukocyte Esterase (test code = 5799-2) NEGATIVE NEGATIVE [facility] Tlrdzdn9415-38-55 10:12:00* Test Item Value Reference Range Interpretation Comments Urine Nitrite (test code = 58948-7) NEGATIVE NEGATIVE [facility] CenterU[facility] Wlbfrhi4020-69-65 10:12:00* Test Item Value Reference Range Interpretation Comments Urine Protein (test code = 5804-0) NEGATIVE NEGATIVE [facility] Glucose (UA)2017-10-26 10:12:00* Test Item Value Reference Range Interpretation Comments Urine Glucose (UA) (test code = 2349-9) NEGATIVE NEGATIVE [facility] CenterU[facility] Usttmcg5388-43-45 10:12:00* Test Item Value Reference Range Interpretation Comments Urine Ketones (test code = 95312-4) NEGATIVE NEGATIVE [facility] Gsmlgofqzuhn3426-98-58 10:12:00* Test Item Value Reference Range Interpretation Comments Urine Urobilinogen (test code = 85094-1) 0.2 0.2-1 [facility] CenterU[facility] Eodfxpwcm4720-80-12 10:12:00* Test Item Value Reference Range Interpretation Comments Urine Bilirubin (test code = 1978-6) NEGATIVE NEGATIVE [facility] CenterU[facility] Ozjji4117-35-84 10:12:00* Test Item Value Reference Range Interpretation Comments Urine Blood (test code = 99268-4) NEGATIVE NEGATIVE [facility] CenterWhite Blood Wijlh7148-23-38 10:10:00* Test Item Value Reference Range Interpretation Comments White Blood Count (test code = 6690-2) 6.34 4.8-10.8 [facility] CenterRed Blood Rghtu1804-01-63 10:10:00* Test Item Value Reference Range Interpretation Comments Red Blood Count (test code = 789-8) 4.58 3.6-5.1 [facility] CenterHemoglobin2018-05-28 10:10:00* Test Item Value Reference Range Interpretation Comments Hemoglobin (test code = 19949-2) 13.1 12.0-16.0 [facility] CenterHematocrit2018-05-28 10:10:00* Test Item Value Reference Range Interpretation Comments Hematocrit (test code = 4544-3) 40.0 34.2-44.1 [facility] CenterMean Corpuscular Rumpkp7742-35-47 10:10:00* Test Item Value Reference Range Interpretation Comments Mean Corpuscular Volume (test code = 787-2) 87.3 81-99 [facility] CenterMean Corpuscular Lqfmgfblsl1588-07-50 10:10:00* Test Item Value Reference Range Interpretation Comments Mean Corpuscular Hemoglobin (test code = 785-6) 28.6 28-32 [facility] Corp[facility] Hemoglobin Concent 2017-10-26 10:10:00* Test Item Value Reference Range Interpretation Comments Mean Corpuscular Hemoglobin Concent (test code = 786-4) 32.8 31-35 [facility] CenterRed Cell Distribution Evjst5307-51-91 10:10:00* Test Item Value Reference Range Interpretation Comments Red Cell Distribution Width (test code = 94022-5) 14.1 11.7 -14.4 [facility] CenterPlatelet Ugmys2632-71-71 10:10:00* Test Item Value Reference Range Interpretation Comments Platelet Count (test code = 777-3) 259 140-360 [facility] CenterNeutrophils (%) (Auto)2017-10-26 10:10:00 * Test Item Value Reference Range Interpretation Comments Neutrophils (%) (Auto) (test code = 59903-7) 65.6 38.7-80.0 [facility] CenterLymphocytes (%) (Auto)2017-10-26 10:10:00 * Test Item Value Reference Range Interpretation Comments Lymphocytes (%) (Auto) (test code = 736-9) 25.6 18.0-39.1 [facility] CenterMonocytes (%) (Auto)2017-10-26 10:10:00* Test Item Value Reference Range Interpretation Comments Monocytes (%) (Auto) (test code = 5905-5) 5.7 4.4-11.3 [facility] CenterEosinophils (%) (Auto)2017-10-26 10:10:00 * Test Item Value Reference Range Interpretation Comments Eosinophils (%) (Auto) (test code = 713-8) 2.2 0.0-6.0 [facility] CenterBasophils (%) (Auto)2017-10-26 10:10:00* Test Item Value Reference Range Interpretation Comments Basophils (%) (Auto) (test code = 706-2) 0.6 0.0-1.0 [facility] CenterIM GRANULOCYTES %2017-10-26 10:10:00* Test Item Value Reference Range Interpretation Comments IM GRANULOCYTES % (test code = IM GRANULOCYTES %) 0.3 0.0- 1.0 [facility] CenterNeutrophils # (Auto)2017-10-26 10:10:00* Test Item Value Reference Range Interpretation Comments Neutrophils # (Auto) (test code = 751-8) 4.2 2.1-6.9 [facility] CenterLymphocytes # (Auto)2017-10-26 10:10:00* Test Item Value Reference Range Interpretation Comments Lymphocytes # (Auto) (test code = 29189-4) 1.6 1.0-3.2 [facility] CenterMonocytes # (Auto)2017-10-26 10:10:00* Test Item Value Reference Range Interpretation Comments Monocytes # (Auto) (test code = 742-7) 0.4 0.2-0.8 [facility] CenterEosinophils # (Auto)2017-10-26 10:10:00* Test Item Value Reference Range Interpretation Comments Eosinophils # (Auto) (test code = 711-2) 0.1 0.0-0.4 [facility] CenterBasophils # (Auto)2017-10-26 10:10:00* Test Item Value Reference Range Interpretation Comments Basophils # (Auto) (test code = 704-7) 0.0 0.0-0.1 [facility] CenterAbsolute Immature Granulocyte (auto 2017-10-26 10:10:00* Test Item Value Reference Range Interpretation Comments Absolute Immature Granulocyte (auto (alexa t code = Absolute Immature Granulocyte (auto) 0.02 0-0.1 [facility] CenterURINALYSIS W/ REFLEX URINE CULTURE 2017-10-25 10:27:00* Test [...] = 1584) Rare SOURCE(BEAKER) (test code = 1235) CT, APTYAXV0962-00-27 10:25:00FINAL REPORT CT of the abdomen and [...] MDReport Verified Date/Time: 10/25/2017 10:25:23 Reading Location: [address] Consult Reading Room Electronically signed by: KELY AL M.D. on 10/25 10:25 AM SMRMGQ8549-42-44 09:08:00* Test Item Value Reference Range Interpretation Comments LIPASE (BEAKER) (test code = 749) 40 U/L 8-78 COMPREHENSIVE METABOLIC CUELR7368-36-54 09:08:00* Test Item Value Reference Range Interpretation [...] DIALYSIS PATIENTS. CBC W/PLT COUNT & AUTO LYSUWRPGSHHG6899-23-85 08:46:00* Test Item Value Reference Range Interpretation [...] code = 2801) 1 % 0-1 Sodium Ycgze1556-56-20 08:51:00* Test Item Value Reference Range Interpretation Comments Sodium Level (test code = 2951-2) 137 136-145 [facility] CenterPotassium Hlbls2756-48-21 08:51:00* Test Item Value Reference Range Interpretation Comments Potassium Level (test code = 2823-3) 3.5 3.5-5.1 [facility] CenterChloride Xqcxw0668-16-16 08:51:00* Test Item Value Reference Range Interpretation Comments Chloride Level (test code = 2075-0) 103 98-107 [facility] CenterCarbon Dioxide Trvva6006-91-38 08:51:00* Test Item Value Reference Range Interpretation Comments Carbon Dioxide Level (test code = 2028-9) 24 22-29 [facility] CenterAnion Qzx8409-97-64 08:51:00* Test Item Value Reference Range Interpretation Comments Anion Gap (test code = 41783-7) 13.5 8-16 [facility] CenterBlood Urea Euvdjamy5985-58-46 08:51:00* Test Item Value Reference Range Interpretation Comments Blood Urea Nitrogen (test code = 3094-0) 10 7-26 [facility] CenterCreatinine2018-04-11 08:51:00* Test Item Value Reference Range Interpretation Comments Creatinine (test code = 2160-0) 0.90 0.57-1.11 [facility] CenterBUN/Creatinine Ztcow3696-21-81 08:51:00* Test Item Value Reference Range Interpretation Comments BUN/Creatinine Ratio (test code = 3097-3) 11 11-23 [facility] CenterEstimat Glomerular Filtration Rate 2017-09-09 08:51:00* Test Item Value Reference Range Interpretation Comments Estimat Glomerular Filtration Rate (test code = 03533-2) 60- >60 Ranges were taken from the National Kidney Disease Education Program and the [facility] Kidney Foundation literature.Reference ranges:60 or greater: Mexjsj50-83 ( for 3 consecutive months): Chronic kidney disease 15 or less: Kidney failureSaint [facility] Medical CenterGlucose Ymhrr6870-11-15 08:51:00* Test Item Value Reference Range Interpretation Comments Glucose Level (test code = AKG1985) 172 74-118 H [facility] CenterCalcium Poptn1224-97-83 08:51:00* Test Item Value Reference Range Interpretation Comments Calcium Level (test code = 76503-6) 9.3 8.4-10.2 [facility] CenterTotal Wqpackdja6943-93-63 08:51:00* Test Item Value Reference Range Interpretation Comments Total Bilirubin (test code = 1975-2) 0.8 0.2-1.2 [facility] CenterAspartate Amino Transf (AST/SGOT) 2017-09-09 08:51:00* Test Item Value Reference Range Interpretation Comments Aspartate Amino Transf (AST/SGOT) (test code = Aspartate Amino Transf (AST/SGOT)) 14 -34 [facility] CenterAlanine Aminotransferase (ALT/SGPT) 2017-09-09 08:51:00* Test Item Value Reference Range Interpretation Comments Alanine Aminotransferase (ALT/SGPT) (test code = 1742-6) 15 0-55 [facility] CenterTotal Uuetbsb8474-72-53 08:51:00* Test Item Value Reference Range Interpretation Comments Total Protein (test code = 2885-2) 7.0 6.5-8.1 [facility] CenterAlbumin2018-04-11 08:51:00* Test Item Value Reference Range Interpretation Comments Albumin (test code = 1751-7) 3.8 3.5-5.0 [facility] CenterGlobulin2018-04-11 08:51:00* Test Item Value Reference Range Interpretation Comments Globulin (test code = 84784-2) 3.2 2.3-3.5 [facility] CenterAlbumin/Globulin Mazll5682-78-08 08:51:00 * Test Item Value Reference Range Interpretation Comments Albumin/Globulin Ratio (test code = 1759-0) 1.2 0.8-2.0 [facility] CenterAlkaline Pmokjifiblh7942-61-75 08:51:00* Test Item Value Reference Range Interpretation Comments Alkaline Phosphatase (test code = 6768-6) 88 40-150 [facility] CenterLipase2018-04-11 08:51:00* Test Item Value Reference Range Interpretation Comments Lipase (test code = 3040-3) 38 8-78 [facility] CenterUrine OQI9110-43-08 08:50:00* Test Item Value Reference Range Interpretation Comments Urine WBC (test code = 5821-4) NONE 0-5 [facility] CenterUrine ODI7932-34-24 08:50:00* Test Item Value Reference Range Interpretation Comments Urine RBC (test code = 87757-0) NONE 0-5 [facility] CenterUrine Bidlhssd2055-91-04 08:50:00* Test Item Value Reference Range Interpretation Comments Urine Bacteria (test code = 07921-4) RARE NONE [facility] CenterUrine Epithelial Apfyq6792-08-97 08:50:00 * Test Item Value Reference Range Interpretation Comments Urine Epithelial Cells (test code = 19542-0) FEW NONE [facility] CenterUrine Lcphi0416-39-26 08:50:00* Test Item Value Reference Range Interpretation Comments Urine Mucus (test code = 8247-9) RARE RARE [facility] CenterUrine Bkdsp3578-19-95 08:37:00* Test Item Value Reference Range Interpretation Comments Urine Color (test code = 5778-6) YELLOW YELLOW [facility] CenterUrine Azqlfiz2119-14-54 08:37:00* Test Item Value Reference Range Interpretation Comments Urine Clarity (test code = 28592-2) SL CLOUDY CLEAR [facility] CenterUrine Specific Mxpesen1767-83-78 08:37:00 * Test Item Value Reference Range Interpretation Comments Urine Specific [place] (test code = 5811-5) 1.020 1.010-1.02 5 [facility] CenterUrine xI9974-40-94 08:37:00* Test Item Value Reference Range Interpretation Comments Urine pH (test code = 39051-0) 6.5 5-7 [facility] CenterUrine Leukocyte Eiiphwyz6666-19-39 08:37:00* Test Item Value Reference Range Interpretation Comments Urine Leukocyte Esterase (test code = 5799-2) NEGATIVE NEGATIVE [facility] CenterUrine Wrclexu4781-67-29 08:37:00* Test Item Value Reference Range Interpretation Comments Urine Nitrite (test code = 26438-2) NEGATIVE NEGATIVE [facility] CenterUrine Becfkik2391-70-52 08:37:00* Test Item Value Reference Range Interpretation Comments Urine Protein (test code = 5804-0) NEGATIVE NEGATIVE [facility] CenterUrine Glucose (UA)2017-09-09 08:37:00* Test Item Value Reference Range Interpretation Comments Urine Glucose (UA) (test code = 2349-9) NEGATIVE NEGATIVE [facility] CenterUrine Sfkqfbt0536-83-70 08:37:00* Test Item Value Reference Range Interpretation Comments Urine Ketones (test code = 30513-2) NEGATIVE NEGATIVE [facility] CenterUrine Nsrybuetsbyz9234-53-42 08:37:00* Test Item Value Reference Range Interpretation Comments Urine Urobilinogen (test code = 75297-8) 0.2 0.2-1 [facility] CenterUrine Khscvcqju9718-66-48 08:37:00* Test Item Value Reference Range Interpretation Comments Urine Bilirubin (test code = 1978-6) NEGATIVE NEGATIVE [facility] CenterUrine Lvpgp2359-56-90 08:37:00* Test Item Value Reference Range Interpretation Comments Urine Blood (test code = 05422-0) NEGATIVE NEGATIVE [facility] CenterWhite Blood Myonn9311-94-16 08:36:00* Test Item Value Reference Range Interpretation Comments White Blood Count (test code = 6690-2) 6.20 4.8-10.8 [facility] CenterRed Blood Yczud9496-00-58 08:36:00* Test Item Value Reference Range Interpretation Comments Red Blood Count (test code = 789-8) 4.71 3.6-5.1 [facility] CenterHemoglobin2018-04-11 08:36:00* Test Item Value Reference Range Interpretation Comments Hemoglobin (test code = 87433-3) 13.8 12.0-16.0 [facility] CenterHematocrit2018-04-11 08:36:00* Test Item Value Reference Range Interpretation Comments Hematocrit (test code = 4544-3) 40.5 34.2-44.1 [facility] CenterMean Corpuscular Logjvg7832-80-59 08:36:00* Test Item Value Reference Range Interpretation Comments Mean Corpuscular Volume (test code = 787-2) 86.0 81-99 [facility] CenterMean Corpuscular Febgkxbdpc8118-18-88 08:36:00* Test Item Value Reference Range Interpretation Comments Mean Corpuscular Hemoglobin (test code = 785-6) 29.3 28-32 [facility] CenterMean Corpuscular Hemoglobin Concent 2017-09-09 08:36:00* Test Item Value Reference Range Interpretation Comments Mean Corpuscular Hemoglobin Concent (test code = 786-4) 34.1 31-35 [facility] CenterRed Cell Distribution Wurlu5877-33-36 08:36:00* Test Item Value Reference Range Interpretation Comments Red Cell Distribution Width (test code = 48554-1) 13.3 11.7 -14.4 [facility] CenterPlatelet Qvmog6964-12-53 08:36:00* Test Item Value Reference Range Interpretation Comments Platelet Count (test code = 777-3) 292 140-360 [facility] CenterNeutrophils (%) (Auto)2017-09-09 08:36:00 * Test Item Value Reference Range Interpretation Comments Neutrophils (%) (Auto) (test code = 85892-7) 73.3 38.7-80.0 [facility] CenterLymphocytes (%) (Auto)2017-09-09 08:36:00 * Test Item Value Reference Range Interpretation Comments Lymphocytes (%) (Auto) (test code = 736-9) 19.4 18.0-39.1 [facility] CenterMonocytes (%) (Auto)2017-09-09 08:36:00* Test Item Value Reference Range Interpretation Comments Monocytes (%) (Auto) (test code = 5905-5) 4.5 4.4-11.3 [facility] CenterEosinophils (%) (Auto)2017-09-09 08:36:00 * Test Item Value Reference Range Interpretation Comments Eosinophils (%) (Auto) (test code = 713-8) 1.9 0.0-6.0 [facility] CenterBasophils (%) (Auto)2017-09-09 08:36:00* Test Item Value Reference Range Interpretation Comments Basophils (%) (Auto) (test code = 706-2) 0.6 0.0-1.0 [facility] CenterIM GRANULOCYTES %2017-09-09 08:36:00* Test Item Value Reference Range Interpretation Comments IM GRANULOCYTES % (test code = IM GRANULOCYTES %) 0.3 0.0- 1.0 [facility] CenterNeutrophils # (Auto)2017-09-09 08:36:00* Test Item Value Reference Range Interpretation Comments Neutrophils # (Auto) (test code = 751-8) 4.5 2.1-6.9 [facility] CenterLymphocytes # (Auto)2017-09-09 08:36:00* Test Item Value Reference Range Interpretation Comments Lymphocytes # (Auto) (test code = 56401-8) 1.2 1.0-3.2 [facility] CenterMonocytes # (Auto)2017-09-09 08:36:00* Test Item Value Reference Range Interpretation Comments Monocytes # (Auto) (test code = 742-7) 0.3 0.2-0.8 [facility] CenterEosinophils # (Auto)2017-09-09 08:36:00* Test Item Value Reference Range Interpretation Comments Eosinophils # (Auto) (test code = 711-2) 0.1 0.0-0.4 [facility] CenterBasophils # (Auto)2017-09-09 08:36:00* Test Item Value Reference Range Interpretation Comments Basophils # (Auto) (test code = 704-7) 0.0 0.0-0.1 [facility] CenterAbsolute Immature Granulocyte (auto 2017-09-09 08:36:00* Test Item Value Reference Range Interpretation Comments Absolute Immature Granulocyte (auto (alexa t code = Absolute Immature Granulocyte (auto) 0.02 0-0.1 [facility] Xncyvjv3125-97-26 13:18:00* Test Item Value Reference Range Interpretation Comments Blood Culture (test code = 45110595) NO GROWTH AFTER 5 DAYS, FINAL REPORT [facility] Xodctfz8644-23-85 13:18:00* Test Item Value Reference Range Interpretation Comments Blood Culture (test code = 40493425) NO GROWTH AFTER 5 DAYS, FINAL REPORT [facility]2018-03-27 13:18:00* Test Item Value Reference Range Interpretation Comments Blood Culture (test code = 21421728) NO GROWTH AFTER 5 DAYS, FINAL REPORT [facility]2018-03-27 13:18:00* Test Item Value Reference Range Interpretation Comments Blood Culture (test code = 21645482) NO GROWTH AFTER 5 DAYS, FINAL REPORT [facility] Wgxymim9254-12-33 13:18:00* Test Item Value Reference Range Interpretation Comments Blood Culture (test code = 35514440) NO GROWTH AFTER 5 DAYS, FINAL REPORT [facility] Fexavht0066-76-40 13:18:00* Test Item Value Reference Range Interpretation Comments Blood Culture (test code = 52225613) NO GROWTH AFTER 5 DAYS, FINAL REPORT [facility] Soewwzd7310-45-36 13:18:00* Test Item Value Reference Range Interpretation Comments Blood Culture (test code = 17219173) NO GROWTH AFTER 5 DAYS, FINAL REPORT [facility] Ezqnouk9849-26-74 13:18:00* Test Item Value Reference Range Interpretation Comments Blood Culture (test code = 15179941) NO GROWTH AFTER 5 DAYS, FINAL REPORT [facility] Mynvbfy7264-59-49 13:18:00* Test Item Value Reference Range Interpretation Comments Blood Culture (test code = 34265371) NO GROWTH AFTER 5 DAYS, FINAL REPORT [facility] Tpyddzo7305-65-16 13:18:00* Test Item Value Reference Range Interpretation Comments Blood Culture (test code = 22739996) NO GROWTH AFTER 5 DAYS, [facility]AL [facility]PORT [facility] Uwzqa6090-12-84 08:26:00* Test Item Value Reference Range Interpretation Comments Sodium Level (test code = 2951-2) 140 136-145 [facility] CenterPotassium Qznij1915-42-33 08:26:00* Test Item Value Reference Range Interpretation Comments Potassium Level (test code = 2823-3) 3.7 3.5-5.1 [facility] CenterChloride Vzycf0178-88-25 08:26:00* Test Item Value Reference Range Interpretation Comments Chloride Level (test code = 2075-0) 109 98-107 H [facility] CenterCarbon Dioxide Tmcbn1003-57-94 08:26:00* Test Item Value Reference Range Interpretation Comments Carbon Dioxide Level (test code = 2028-9) 26 22-29 [facility] CenterAnion Jmo0796-42-28 08:26:00* Test Item Value Reference Range Interpretation Comments Anion Gap (test code = 73024-3) 8.7 8-16 [facility] CenterBlood Urea Fjxwxidl1032-59-45 08:26:00* Test Item Value Reference Range Interpretation Comments Blood Urea Nitrogen (test code = 3094-0) 8 7-26 [facility] CenterCreatinine2018-03-26 08:26:00* Test Item Value Reference Range Interpretation Comments Creatinine (test code = 2160-0) 0.78 0.57-1.11 [facility] CenterBUN/Creatinine Eyplj5101-60-46 08:26:00* Test Item Value Reference Range Interpretation Comments BUN/Creatinine Ratio (test code = 3097-3) 10 6-25 [facility] CenterEstimat Glomerular Filtration Rate 2017-08-24 08:26:00* Test Item Value Reference Range Interpretation Comments Estimat Glomerular Filtration Rate (test code = 12434-0) 60- >60 Ranges were taken from the National Kidney Disease Education Program and the [facility] [employer] literature.Reference ranges:60 or greater: Spcicc52-98 ( for 3 consecutive months): Chronic kidney disease 15 or less: Kidney failureSaint [facility] Medical CenterGlucose Ducug8504-52-07 08:26:00* Test Item Value Reference Range Interpretation Comments Glucose Level (test code = AZC8034) 99 74-118 [facility] CenterCalcium Dmvje2879-35-97 08:26:00* Test Item Value Reference Range Interpretation Comments Calcium Level (test code = 39515-2) 8.6 8.4-10.2 [facility] CenterTotal Ranlltvkr1289-28-75 08:26:00* Test Item Value Reference Range Interpretation Comments Total Bilirubin (test code = 1975-2) 0.5 0.2-1.2 [facility] CenterAspartate Amino Transf (AST/SGOT) 2017-08-24 08:26:00* Test Item Value Reference Range Interpretation Comments Aspartate Amino Transf (AST/SGOT) (test code = Aspartate Amino Transf (AST/SGOT)) 19 5-34 [facility] CenterAlanine Aminotransferase (ALT/SGPT) 2017-08-24 08:26:00* Test Item Value Reference Range Interpretation Comments Alanine Aminotransferase (ALT/SGPT) (test code = 1742-6) 22 0-55 [facility] CenterTotal Gxmmibl2202-75-03 08:26:00* Test Item Value Reference Range Interpretation Comments Total Protein (test code = 2885-2) 6.0 6.5-8.1 L [facility] CenterAlbumin2018-03-26 08:26:00* Test Item Value Reference Range Interpretation Comments Albumin (test code = 1751-7) 3.3 3.5-5.0 L [facility] CenterGlobulin2018-03-26 08:26:00* Test Item Value Reference Range Interpretation Comments Globulin (test code = 49142-3) 2.7 2.3-3.5 [facility] CenterAlbumin/Globulin Htldc8420-29-66 08:26:00 * Test Item Value Reference Range Interpretation Comments Albumin/Globulin Ratio (test code = 1759-0) 1.2 0.8-2.0 [facility] CenterAlkaline Paxdbkfwzug6156-66-74 08:26:00* Test Item Value Reference Range Interpretation Comments Alkaline Phosphatase (test code = 6768-6) 85 40-150 [facility] CenterWhite Blood Culha2085-28-19 08:10:00* Test Item Value Reference Range Interpretation Comments White Blood Count (test code = 6690-2) 9.20 4.8-10.8 [facility] CenterRed Blood Ofeaq2673-02-77 08:10:00* Test Item Value Reference Range Interpretation Comments Red Blood Count (test code = 789-8) 4.06 3.6-5.1 [facility] CenterHemoglobin2018-03-26 08:10:00* Test Item Value Reference Range Interpretation Comments Hemoglobin (test code = 78907-6) 12.0 12.0-16.0 [facility] CenterHematocrit2018-03-26 08:10:00* Test Item Value Reference Range Interpretation Comments Hematocrit (test code = 4544-3) 36.0 34.2-44.1 [facility] CenterMean Corpuscular Dicjyy0070-41-72 08:10:00* Test Item Value Reference Range Interpretation Comments Mean Corpuscular Volume (test code = 787-2) 88.7 81-99 [facility] CenterMean Corpuscular Pykxvwfxos1047-32-71 08:10:00* Test Item Value Reference Range Interpretation Comments Mean Corpuscular Hemoglobin (test code = 785-6) 29.6 28-32 [facility] CenterMean Corpuscular Hemoglobin Concent 2017-08-24 08:10:00* Test Item Value Reference Range Interpretation Comments Mean Corpuscular Hemoglobin Concent (test code = 786-4) 33.3 31-35 [facility] CenterRed Cell Distribution Dmvig8684-63-61 08:10:00* Test Item Value Reference Range Interpretation Comments Red Cell Distribution Width (test code = 56894-7) 13.3 11.7 -14.4 [facility] CenterPlatelet Yolpj8596-15-14 08:10:00* Test Item Value Reference Range Interpretation Comments Platelet Count (test code = 777-3) 282 140-360 [facility] CenterNeutrophils (%) (Auto)2017-08-24 08:10:00 * Test Item Value Reference Range Interpretation Comments Neutrophils (%) (Auto) (test code = 37011-8) 74.9 38.7-80.0 [facility] CenterLymphocytes (%) (Auto)2017-08-24 08:10:00 * Test Item Value Reference Range Interpretation Comments Lymphocytes (%) (Auto) (test code = 736-9) 17.2 18.0-39.1 L [facility] CenterMonocytes (%) (Auto)2017-08-24 08:10:00* Test Item Value Reference Range Interpretation Comments Monocytes (%) (Auto) (test code = 5905-5) 4.7 4.4-11.3 [facility] CenterEosinophils (%) (Auto)2017-08-24 08:10:00 * Test Item Value Reference Range Interpretation Comments Eosinophils (%) (Auto) (test code = 713-8) 2.3 0.0-6.0 [facility] CenterBasophils (%) (Auto)2017-08-24 08:10:00* Test Item Value Reference Range Interpretation Comments Basophils (%) (Auto) (test code = 706-2) 0.4 0.0-1.0 [facility] CenterIM GRANULOCYTES %2017-08-24 08:10:00* Test Item Value Reference Range Interpretation Comments IM GRANULOCYTES % (test code = IM GRANULOCYTES %) 0.5 0.0- 1.0 [facility] CenterNeutrophils # (Auto)2017-08-24 08:10:00* Test Item Value Reference Range Interpretation Comments Neutrophils # (Auto) (test code = 751-8) 6.9 2.1-6.9 [facility] CenterLymphocytes # (Auto)2017-08-24 08:10:00* Test Item Value Reference Range Interpretation Comments Lymphocytes # (Auto) (test code = 18426-3) 1.6 1.0-3.2 [facility] CenterMonocytes # (Auto)2017-08-24 08:10:00* Test Item Value Reference Range Interpretation Comments Monocytes # (Auto) (test code = 742-7) 0.4 0.2-0.8 [facility] CenterEosinophils # (Auto)2017-08-24 08:10:00* Test Item Value Reference Range Interpretation Comments Eosinophils # (Auto) (test code = 711-2) 0.2 0.0-0.4 [facility] CenterBasophils # (Auto)2017-08-24 08:10:00* Test Item Value Reference Range Interpretation Comments Basophils # (Auto) (test code = 704-7) 0.0 0.0-0.1 [facility] CenterAbsolute Immature Granulocyte (auto 2017-08-24 08:10:00* Test Item Value Reference Range Interpretation Comments Absolute Immature Granulocyte (auto (alexa t code = Absolute Immature Granulocyte (auto) 0.05 0-0.1 [facility] CenterBlood Kaaraxn2804-36-10 13:18:00* Test Item Value Reference Range Interpretation Comments Blood Culture (test code = 09754440) NO GROWTH AFTER 72 HOURS [facility] CenterUrine QYB6414-34-19 12:10:00* Test Item Value Reference Range Interpretation Comments Urine WBC (test code = 5821-4) NONE 0-5 [facility] CenterUrine AIC4571-18-16 12:10:00* Test Item Value Reference Range Interpretation Comments Urine RBC (test code = 60675-7) NONE 0-5 [facility] CenterUrine Cmglzhru7130-82-51 12:10:00* Test Item Value Reference Range Interpretation Comments Urine Bacteria (test code = 33429-8) NONE NONE [facility] CenterUrine Epithelial Ltwtq5234-89-16 12:10:00 * Test Item Value Reference Range Interpretation Comments Urine Epithelial Cells (test code = 14827-1) MODERATE NONE [facility] CenterUrine Tejus6991-81-87 12:03:00* Test Item Value Reference Range Interpretation Comments Urine Color (test code = 5778-6) YELLOW YELLOW [facility] CenterUrine Ejlvidh1604-10-79 12:03:00* Test Item Value Reference Range Interpretation Comments Urine Clarity (test code = 13525-2) CLEAR CLEAR [facility] CenterUrine Specific Elnnjxe4954-53-58 12:03:00 * Test Item Value Reference Range Interpretation Comments Urine Specific [place] (test code = 5811-5) 1.015 1.010-1.02 5 [facility] CenterUrine yT6117-42-04 12:03:00* Test Item Value Reference Range Interpretation Comments Urine pH (test code = 25889-6) 6 5-7 [facility] CenterUrine Leukocyte Yiarhlww9781-94-85 12:03:00* Test Item Value Reference Range Interpretation Comments Urine Leukocyte Esterase (test code = 5799-2) NEGATIVE NEGATIVE [facility] CenterUrine Qqnarve2713-68-28 12:03:00* Test Item Value Reference Range Interpretation Comments Urine Nitrite (test code = 46779-4) NEGATIVE NEGATIVE [facility] CenterUrine Krqfhjh6846-46-85 12:03:00* Test Item Value Reference Range Interpretation Comments Urine Protein (test code = 5804-0) NEGATIVE NEGATIVE [facility] CenterUrine Glucose (UA)2017-08-23 12:03:00* Test Item Value Reference Range Interpretation Comments Urine Glucose (UA) (test code = 2349-9) NEGATIVE NEGATIVE [facility] CenterUrine Ygesrcs6327-62-80 12:03:00* Test Item Value Reference Range Interpretation Comments Urine Ketones (test code = 78669-0) NEGATIVE NEGATIVE [facility] CenterUrine Novoznbuymaz1671-37-07 12:03:00* Test Item Value Reference Range Interpretation Comments Urine Urobilinogen (test code = 52533-8) 0.2 0.2-1 [facility] CenterUrine Nkpxzdhuy0500-19-37 12:03:00* Test Item Value Reference Range Interpretation Comments Urine Bilirubin (test code = 1978-6) NEGATIVE NEGATIVE [facility] CenterUrine Iiftf0947-66-30 12:03:00* Test Item Value Reference Range Interpretation Comments Urine Blood (test code = 16926-1) NEGATIVE NEGATIVE [facility] CenterAmylase Tgrvn6358-67-25 07:49:00* Test Item Value Reference Range Interpretation Comments Amylase Level (test code = 1798-8) 51 25-125 [facility] CenterLipase2018-03-24 07:49:00* Test Item Value Reference Range Interpretation Comments Lipase (test code = 3040-3) 22 8-78 [facility] CenterAmylase Cjxvq7436-34-84 07:49:00* Test Item Value Reference Range Interpretation Comments Amylase Level (test code = 1798-8) 51 25-125 [facility] CenterAmylase Juazw6962-43-55 07:49:00* Test Item Value Reference Range Interpretation Comments Amylase Level (test code = 1798-8) 51 25-125 [facility] CenterDirect Hogjumzkw6375-42-46 08:06:00* Test Item Value Reference Range Interpretation Comments Direct Bilirubin (test code = 97926-8) 0.1 0.0-0.5 [facility] Upcrukzla3572-69-67 08:06:00* Test Item Value Reference Range Interpretation Comments Direct Bilirubin (test code = 59919-6) 0.1 0.0-0.5 [facility] Tatzegclv0987-34-81 08:06:00* Test Item Value Reference Range Interpretation Comments Direct Bilirubin (test code = 58937-1) 0.1 0.0-0.5 [facility] Kmlruksia3455-98-62 08:06:00* Test Item Value Reference Range Interpretation Comments Direct Bilirubin (test code = 89128-5) 0.1 0.0-0.5 [facility] Tlvoizbvu6311-21-98 08:06:00* Test Item Value Reference Range Interpretation Comments Direct Bilirubin (test code = 56921-8) 0.1 0.0-0.5 [facility] Mjmaebwnh3072-75-45 08:06:00* Test Item Value Reference Range Interpretation Comments Direct Bilirubin (test code = 94374-8) 0.1 0.0-0.5 [facility] Srahllcod1788-63-79 08:06:00* Test Item Value Reference Range Interpretation Comments Direct Bilirubin (test code = 60869-4) 0.1 0.0-0.5 [facility] Qzrefaxum4820-07-61 08:06:00* Test Item Value Reference Range Interpretation Comments Direct Bilirubin (test code = 17152-7) 0.1 0.0-0.5 [facility] Srujqklgf2729-77-81 08:06:00* Test Item Value Reference Range Interpretation Comments Direct Bilirubin (test code = 56410-0) 0.1 0.0-0.5 [facility] Fmaiidemn3481-52-63 08:06:00* Test Item Value Reference Range Interpretation Comments Direct Bilirubin (test code = 62306-8) 0.1 0.0-0.5 [facility] Idrutvygd1792-70-47 08:06:00* Test Item Value Reference Range Interpretation Comments Direct Bilirubin (test code = 54544-8) 0.1 0.0-0.5 [facility] CenterTriglycerides Ikjwz6939-78-79 15:56:00* Test Item Value Reference Range Interpretation Comments Triglycerides Level (test code = 2571-8) 113 0-149 [facility] CenterCholesterol Yjygu8704-77-35 15:56:00* Test Item Value Reference Range Interpretation Comments Cholesterol Level (test code = 2093-3) 227 0-199 H Less than 200 mg/dL Low Zbwb961 - 239 mg/dL Borderline Mpfo582 m g/dl and greater High Risk [facility] CenterLDL Pnampdjkpit0021-81-14 15:56:00* Test Item Value Reference Range Interpretation Comments LDL Cholesterol (test code = 2089-1) 141 60-130 H [facility] Nzmroojwupi5473-72-93 15:56:00* Test Item Value Reference Range Interpretation Comments HDL Cholesterol (test code = 2085-9) 63 40-60 H [facility] CenterCholesterol/HDL Dwwck8167-21-89 15:56:00 * Test Item Value Reference Range Interpretation Comments Cholesterol/HDL Ratio (test code = 9830-1) 3.6 3.0-3.6 [facility] CenterTriglycerides Dzqjv0797-69-77 15:56:00* Test Item Value Reference Range Interpretation Comments Triglycerides Level (test code = 2571-8) 113 0-149 [facility] CenterCholesterol Tonnq9938-45-34 15:56:00* Test Item Value Reference Range Interpretation Comments Cholesterol Level (test code = 2093-3) 227 0-199 H Less than 200 mg/dL Low Iwyd625 - 239 mg/dL Borderline Dtwp427 m g/dl and greater High Risk [facility] CenterLDL Orkvfbuibku3410-48-89 15:56:00* Test Item Value Reference Range Interpretation Comments LDL Cholesterol (test code = 2089-1) 141 60-130 H [facility] Szlilciaraw7616-13-03 15:56:00* Test Item Value Reference Range Interpretation Comments HDL Cholesterol (test code = 2085-9) 63 40-60 H [facility] CenterCholesterol/HDL Fbqvf1456-95-97 15:56:00 * Test Item Value Reference Range Interpretation Comments Cholesterol/HDL Ratio (test code = 9830-1) 3.6 3.0-3.6 [facility] CenterTriglycerides Qpmrc6278-94-19 15:56:00* Test Item Value Reference Range Interpretation Comments Triglycerides Level (test code = 2571-8) 113 0-149 [facility] CenterCholesterol Bwwxe1106-91-07 15:56:00* Test Item Value Reference Range Interpretation Comments Cholesterol Level (test code = 2093-3) 227 0-199 H Less than 200 mg/dL Low Gxxu837 - 239 mg/dL Borderline Fdmz830 m g/dl and greater High Risk [facility] CenterLDL Rlxijzcjapl0032-38-43 15:56:00* Test Item Value Reference Range Interpretation Comments LDL Cholesterol (test code = 2089-1) 141 60-130 H [facility] CenterHDL Oqlemxmzljg8607-19-97 15:56:00* Test Item Value Reference Range Interpretation Comments HDL Cholesterol (test code = 2085-9) 63 40-60 H [facility] CenterCholesterol/HDL Muhjp1464-39-90 15:56:00 * Test Item Value Reference Range Interpretation Comments Cholesterol/HDL Ratio (test code = 9830-1) 3.6 3.0-3.6 [facility] CenterTriglycerides Eytyv5686-88-89 15:56:00* Test Item Value Reference Range Interpretation Comments Triglycerides Level (test code = 2571-8) 113 0-149 [facility] CenterCholesterol Zfzpn4101-94-94 15:56:00* Test Item Value Reference Range Interpretation Comments Cholesterol Level (test code = 2093-3) 227 0-199 H Less than 200 mg/dL Low Qceb885 - 239 mg/dL Borderline Wbyc777 m g/dl and greater High Risk [facility] CenterLDL Pcqmswhohbt4936-36-14 15:56:00* Test Item Value Reference Range Interpretation Comments LDL Cholesterol (test code = 2089-1) 141 60-130 H [facility] Bxjcbjavjzi0963-28-26 15:56:00* Test Item Value Reference Range Interpretation Comments HDL Cholesterol (test code = 2085-9) 63 40-60 H [facility] CenterCholesterol/HDL Yhirb9528-01-65 15:56:00 * Test Item Value Reference Range Interpretation Comments Cholesterol/HDL Ratio (test code = 9830-1) 3.6 3.0-3.6 [facility] CenterTriglycerides Ocfjh7309-12-02 15:56:00* Test Item Value Reference Range Interpretation Comments Triglycerides Level (test code = 2571-8) 113 0-149 [facility] CenterCholesterol Uwuxv6109-25-53 15:56:00* Test Item Value Reference Range Interpretation Comments Cholesterol Level (test code = 2093-3) 227 0-199 H Less than 200 mg/dL Low Fnsn394 - 239 mg/dL Borderline Fwrf351 m g/dl and greater High Risk [facility] Pbfglicpick2578-48-16 15:56:00* Test Item Value Reference Range Interpretation Comments LDL Cholesterol (test code = 2089-1) 141 60-130 H [facility] Erktcrxhknb6905-69-45 15:56:00* Test Item Value Reference Range Interpretation Comments HDL Cholesterol (test code = 2085-9) 63 40-60 H [facility] CenterCholesterol/HDL Svwal7477-22-39 15:56:00 * Test Item Value Reference Range Interpretation Comments Cholesterol/HDL Ratio (test code = 9830-1) 3.6 3.0-3.6 [facility] CenterTriglycerides Tsmkj6690-93-63 15:56:00* Test Item Value Reference Range Interpretation Comments Triglycerides Level (test code = 2571-8) 113 0-149 [facility] CenterCholesterol Vetsl1486-33-05 15:56:00* Test Item Value Reference Range Interpretation Comments Cholesterol Level (test code = 2093-3) 227 0-199 H Less than 200 mg/dL Low Jrqj814 - 239 mg/dL Borderline Kqhz564 m g/dl and greater High Risk [facility] CenterLDL Tusreqkzfct9425-70-69 15:56:00* Test Item Value Reference Range Interpretation Comments LDL Cholesterol (test code = 2089-1) 141 60-130 H [facility] Trkkgvsmukw6703-48-08 15:56:00* Test Item Value Reference Range Interpretation Comments HDL Cholesterol (test code = 2085-9) 63 40-60 H [facility] CenterCholesterol/HDL Hsqim7517-54-13 15:56:00 * Test Item Value Reference Range Interpretation Comments Cholesterol/HDL Ratio (test code = 9830-1) 3.6 3.0-3.6 [facility] CenterTriglycerides Pmirr2885-36-88 15:56:00* Test Item Value Reference Range Interpretation Comments Triglycerides Level (test code = 2571-8) 113 0-149 [facility] CenterCholesterol Ixurj4163-44-94 15:56:00* Test Item Value Reference Range Interpretation Comments Cholesterol Level (test code = 2093-3) 227 0-199 H Less than 200 mg/dL Low Fyrf609 - 239 mg/dL Borderline Gfiv682 m g/dl and greater High Risk [facility] CenterLDL Xpbubikosrq2507-61-68 15:56:00* Test Item Value Reference Range Interpretation Comments LDL Cholesterol (test code = 2089-1) 141 60-130 H [facility] Wsksylbzcwu6214-01-85 15:56:00* Test Item Value Reference Range Interpretation Comments HDL Cholesterol (test code = 2085-9) 63 40-60 H [facility] CenterCholesterol/HDL Fbcat7778-80-88 15:56:00 * Test Item Value Reference Range Interpretation Comments Cholesterol/HDL Ratio (test code = 9830-1) 3.6 3.0-3.6 [facility] CenterTriglycerides Vdjyd0544-69-60 15:56:00* Test Item Value Reference Range Interpretation Comments Triglycerides Level (test code = 2571-8) 113 0-149 [facility] CenterCholesterol Ksbwu7001-68-06 15:56:00* Test Item Value Reference Range Interpretation Comments Cholesterol Level (test code = 2093-3) 227 0-199 H Less than 200 mg/dL Low Oowx735 - 239 mg/dL Borderline Pmly225 m g/dl and greater High Risk [facility] CenterLDL Pqkqiafmkmw4075-30-38 15:56:00* Test Item Value Reference Range Interpretation Comments LDL Cholesterol (test code = 2089-1) 141 60-130 H [facility] Fnmyssbslhi4690-92-74 15:56:00* Test Item Value Reference Range Interpretation Comments HDL Cholesterol (test code = 2085-9) 63 40-60 H [facility] CenterCholesterol/HDL Uqtdq8035-89-30 15:56:00 * Test Item Value Reference Range Interpretation Comments Cholesterol/HDL Ratio (test code = 9830-1) 3.6 3.0-3.6 [facility] CenterTriglycerides Wusot6947-65-63 15:56:00* Test Item Value Reference Range Interpretation Comments Triglycerides Level (test code = 2571-8) 113 0-149 [facility] CenterCholesterol Hoklo6911-67-22 15:56:00* Test Item Value Reference Range Interpretation Comments Cholesterol Level (test code = 2093-3) 227 0-199 H Less than 200 mg/dL Low Odll838 - 239 mg/dL Borderline Dbnx651 m g/dl and greater High Risk [facility] CenterLDL Eochhgeucbz7381-16-99 15:56:00* Test Item Value Reference Range Interpretation Comments LDL Cholesterol (test code = 2089-1) 141 60-130 H [facility] Euyknkohoay3781-42-17 15:56:00* Test Item Value Reference Range Interpretation Comments HDL Cholesterol (test code = 2085-9) 63 40-60 H [facility]Ch[facility]HDL Izxvu0012-00-84 15:56:00 * Test Item Value Reference Range Interpretation Comments Cholesterol/HDL Ratio (test code = 9830-1) 3.6 3.0-3.6 [facility] CenterTriglycerides Ihqvh5846-59-52 15:56:00* Test Item Value Reference Range Interpretation Comments Triglycerides Level (test code = 2571-8) 113 0-149 [facility] CenterCholesterol Tdupu5031-77-50 15:56:00* Test Item Value Reference Range Interpretation Comments Cholesterol Level (test code = 2093-3) 227 0-199 H Less than 200 mg/dL Low Syzk034 - 239 mg/dL Borderline Qcfr241 m g/dl and greater High Risk [facility] CenterLDL Oidochahpja2232-17-86 15:56:00* Test Item Value Reference Range Interpretation Comments LDL Cholesterol (test code = 2089-1) 141 60-130 [facility] Epcptqbodcp3055-62-67 15:56:00* Test Item Value Reference Range Interpretation Comments HDL Cholesterol (test code = 2085-9) 63 40-60 H [facility]Ch[facility]HDL Hysuu5138-09-22 15:56:00 * Test Item Value Reference Range Interpretation Comments Cholesterol/HDL Ratio (test code = 9830-1) 3.6 3.0-3.6 [facility] CenterTriglycerides Kienr4641-29-84 15:56:00* Test Item Value Reference Range Interpretation Comments Triglycerides Level (test code = 2571-8) 113 0-149 [facility] CenterCholesterol Rkpyc0666-49-62 15:56:00* Test Item Value Reference Range Interpretation Comments Cholesterol Level (test code = 2093-3) 227 0-199 H Less than 200 mg/dL Low Gjew635 - 239 mg/dL Borderline Niyn311 m g/dl and greater High Risk [facility] CenterLDL Utwuwcjuhom9857-29-30 15:56:00* Test Item Value Reference Range Interpretation Comments LDL Cholesterol (test code = 2089-1) 141 60-130 [facility] Qcvdbbuuezu7896-84-80 15:56:00* Test Item Value Reference Range Interpretation Comments HDL Cholesterol (test code = 2085-9) 63 40-60 H [facility]Ch[facility]HDL Rcduu7276-41-02 15:56:00 * Test Item Value Reference Range Interpretation Comments Cholesterol/HDL Ratio (test code = 9830-1) 3.6 3.0-3.6 [facility] CenterHemoglobin A1c Wwjwxfg1292-44-71 15:51:00 * Test Item Value Reference Range Interpretation Comments Hemoglobin A1c Percent (test code = Hemoglobin A1c Percent) 4.9 4.0-7.0 [facility] CenterHemoglobin A1c Tgzqkfp3326-20-49 15:51:00 * Test Item Value Reference Range Interpretation Comments Hemoglobin A1c Percent (test code = Hemoglobin A1c Percent) 4.9 4.0-7.0 [facility] CenterHemoglobin A1c Ynhgijp1681-54-40 15:51:00 * Test Item Value Reference Range Interpretation Comments Hemoglobin A1c Percent (test code = Hemoglobin A1c Percent) 4.9 4.0-7.0 [facility] CenterHemoglobin A1c Kupexsh2181-85-74 15:51:00 * Test Item Value Reference Range Interpretation Comments Hemoglobin A1c Percent (test code = Hemoglobin A1c Percent) 4.9 4.0-7.0 [facility] CenterHemoglobin A1c Czuuhat2290-64-46 15:51:00 * Test Item Value Reference Range Interpretation Comments Hemoglobin A1c Percent (test code = Hemoglobin A1c Percent) 4.9 4.0-7.0 [facility] CenterHemoglobin A1c Mlnaacl8356-20-70 15:51:00 * Test Item Value Reference Range Interpretation Comments Hemoglobin A1c Percent (test code = Hemoglobin A1c Percent) 4.9 4.0-7.0 [facility] CenterHemoglobin A1c Ozzoghi0532-17-30 15:51:00 * Test Item Value Reference Range Interpretation Comments Hemoglobin A1c Percent (test code = Hemoglobin A1c Percent) 4.9 4.0-7.0 [facility] CenterHemoglobin A1c Zurztey7965-51-60 15:51:00 * Test Item Value Reference Range Interpretation Comments Hemoglobin A1c Percent (test code = Hemoglobin A1c Percent) 4.9 4.0-7.0 [facility] CenterHemoglobin A1c Szbovxc8396-73-43 15:51:00 * Test Item Value Reference Range Interpretation Comments Hemoglobin A1c Percent (test code = Hemoglobin A1c Percent) 4.9 4.0-7.0 [facility] CenterHemoglobin A1c Hosjlmn6337-30-77 15:51:00 * Test Item Value Reference Range Interpretation Comments Hemoglobin A1c Percent (test code = Hemoglobin A1c Percent) 4.9 4.0-7.0 [facility] CenterHemoglobin A1c Dvjwvxs6657-52-33 15:51:00 * Test Item Value Reference Range Interpretation Comments Hemoglobin A1c Percent (test code = Hemoglobin A1c Percent) 4.9 4.0-7.0 [facility] CenterUrine SBS3715-73-07 09:46:00* Test Item Value Reference Range Interpretation Comments Urine WBC (test code = 5821-4) 0-5 0-5 [facility] CenterUrine LLD4452-76-08 09:46:00* Test Item Value Reference Range Interpretation Comments Urine RBC (test code = 09835-1) NONE 0-5 [facility] CenterUrine Hfhafrtd7878-18-10 09:46:00* Test Item Value Reference Range Interpretation Comments Urine Bacteria (test code = 41112-0) NONE NONE [facility] CenterUrine Epithelial Oqfli7776-72-78 09:46:00 * Test Item Value Reference Range Interpretation Comments Urine Epithelial Cells (test code = 80883-1) RARE NONE [facility] CenterUrine Transitional Epithelial Cells 2017-08-05 09:46:00* Test Item Value Reference Range Interpretation Comments Urine Transitional Epithelial Cells (test code = 8249-5) [facility] NONE [facility] Trans[facility] Epithelial [facility] 2017-08-05 09:46:00* Test Item Value Reference Range Interpretation Comments Urine Transitional Epithelial Cells (test code = 8249-5) RARE NONE [facility] AllianceU[facility] Transitional Epithelial Cells 2017-08-05 09:46:00* Test Item Value Reference Range Interpretation Comments Urine Transitional Epithelial Cells (test code = 8249-5) RARE NONE [facility] AllianceU[facility] Transitional Epithelial Cells 2017-08-05 09:46:00* Test Item Value Reference Range Interpretation Comments Urine Transitional Epithelial Cells (test code = 8249-5) RARE NONE [facility] AllianceU[facility] Transitional Epithelial Cells 2017-08-05 09:46:00* Test Item Value Reference Range Interpretation Comments Urine Transitional Epithelial Cells (test code = 8249-5) RARE NONE [facility] AllianceU[facility] Transitional Epithelial Cells 2017-08-05 09:46:00* Test Item Value Reference Range Interpretation Comments Urine Transitional Epithelial Cells (test code = 8249-5) RARE NONE [facility] AllianceU[facility] Transitional Epithelial Cells 2017-08-05 09:46:00* Test Item Value Reference Range Interpretation Comments Urine Transitional Epithelial Cells (test code = 8249-5) RARE NONE [facility] AllianceU[facility] Transitional Epithelial Cells 2017-08-05 09:46:00* Test Item Value Reference Range Interpretation Comments Urine Transitional Epithelial Cells (test code = 8249-5) RARE NONE [facility] AllianceU[facility] Transitional Epithelial Cells 2017-08-05 09:46:00* Test Item Value Reference Range Interpretation Comments Urine Transitional Epithelial Cells (test code = 8249-5) RARE NONE [facility] AllianceU[facility] Transitional Epithelial Cells 2017-08-05 09:46:00* Test Item Value Reference Range Interpretation Comments Urine Transitional Epithelial Cells (test code = 8249-5) RARE NONE [facility] Odgds8380-15-40 09:44:00* Test Item Value Reference Range Interpretation Comments Sodium Level (test code = 2951-2) 140 136-145 [facility] CenterPotassium Rhlgy8811-95-77 09:44:00* Test Item Value Reference Range Interpretation Comments Potassium Level (test code = 2823-3) 3.5 3.5-5.1 [facility] CenterChloride Ksyjd5214-46-07 09:44:00* Test Item Value Reference Range Interpretation Comments Chloride Level (test code = 2075-0) 110 98-107 H [facility] CenterCarbon Dioxide Vzeio3242-75-69 09:44:00* Test Item Value Reference Range Interpretation Comments Carbon Dioxide Level (test code = 2028-9) 20 22-29 L [facility] CenterAnion Zcb9038-47-74 09:44:00* Test Item Value Reference Range Interpretation Comments Anion Gap (test code = 10283-3) 13.5 8-16 [facility] CenterBlood Urea Apinyesk7787-72-07 09:44:00* Test Item Value Reference Range Interpretation Comments Blood Urea Nitrogen (test code = 3094-0) 12 12-24 [facility] CenterCreatinine2018-03-07 09:44:00* Test Item Value Reference Range Interpretation Comments Creatinine (test code = 2160-0) 0.89 0.57-1.11 [facility] CenterBUN/Creatinine Qkoli8543-03-50 09:44:00* Test Item Value Reference Range Interpretation Comments BUN/Creatinine Ratio (test code = 3097-3) 13 11-23 [facility] CenterEstimat Glomerular Filtration Rate 2017-08-05 09:44:00* Test Item Value Reference Range Interpretation Comments Estimat Glomerular Filtration Rate (test code = 21070-1) 60- >60 Ranges were taken from the National Kidney Disease Education Program and the [facility] literature.Reference ranges:60 or greater: Womilv45-21 ( for 3 consecutive months): Chronic kidney disease 15 or less: Kidney failureSaint [facility] Medical CenterGlucose Lnxsf3792-37-00 09:44:00* Test Item Value Reference Range Interpretation Comments Glucose Level (test code = FQT3465) 86 74-118 [facility] CenterCalcium Kbjls3996-59-24 09:44:00* Test Item Value Reference Range Interpretation Comments Calcium Level (test code = 93568-6) 8.5 8.4-10.2 [facility] CenterUrine Cpxoa1212-07-89 09:31:00* Test Item Value Reference Range Interpretation Comments Urine Color (test code = 5778-6) YELLOW YELLOW [facility] CenterUrine Afumtbz2304-12-56 09:31:00* Test Item Value Reference Range Interpretation Comments Urine Clarity (test code = 37247-9) CLEAR CLEAR [facility] CenterUrine Specific Hooruug8717-74-44 09:31:00 * Test Item Value Reference Range Interpretation Comments Urine Specific [place] (test code = 5811-5) 1.015 1.010-1.02 5 [facility] CenterUrine aV7298-23-19 09:31:00* Test Item Value Reference Range Interpretation Comments Urine pH (test code = 64016-8) 6 5-7 [facility] CenterUrine Leukocyte Eqvbcdwv1847-48-58 09:31:00* Test Item Value Reference Range Interpretation Comments Urine Leukocyte Esterase (test code = 5799-2) NEGATIVE NEGATIVE [facility] CenterUrine Gambtut7354-92-89 09:31:00* Test Item Value Reference Range Interpretation Comments Urine Nitrite (test code = 94464-3) NEGATIVE NEGATIVE [facility] CenterUrine Yaffdoe0387-18-16 09:31:00* Test Item Value Reference Range Interpretation Comments Urine Protein (test code = 5804-0) NEGATIVE NEGATIVE [facility] CenterUrine Glucose (UA)2017-08-05 09:31:00* Test Item Value Reference Range Interpretation Comments Urine Glucose (UA) (test code = 2349-9) NEGATIVE NEGATIVE [facility] CenterUrine Hhnvmdt6014-58-89 09:31:00* Test Item Value Reference Range Interpretation Comments Urine Ketones (test code = 21385-1) NEGATIVE NEGATIVE [facility] CenterUrine Ugqpjwuuvuhv5012-93-46 09:31:00* Test Item Value Reference Range Interpretation Comments Urine Urobilinogen (test code = 51434-8) 0.2 0.2-1 [facility] CenterUrine Jwcygfegt2148-59-18 09:31:00* Test Item Value Reference Range Interpretation Comments Urine Bilirubin (test code = 1978-6) NEGATIVE NEGATIVE [facility] CenterUrine Fduti4923-58-42 09:31:00* Test Item Value Reference Range Interpretation Comments Urine Blood (test code = 09349-2) NEGATIVE NEGATIVE [facility] CenterWhite Blood Jllkx8567-22-36 09:26:00* Test Item Value Reference Range Interpretation Comments White Blood Count (test code = 6690-2) 5.52 4.8-10.8 [facility] CenterRed Blood Upwpl0344-61-31 09:26:00* Test Item Value Reference Range Interpretation Comments Red Blood Count (test code = 789-8) 4.29 3.6-5.1 [facility] CenterHemoglobin2018-03-07 09:26:00* Test Item Value Reference Range Interpretation Comments Hemoglobin (test code = 97074-0) 12.8 12.0-16.0 [facility] CenterHematocrit2018-03-07 09:26:00* Test Item Value Reference Range Interpretation Comments Hematocrit (test code = 4544-3) 37.8 34.2-44.1 [facility] CenterMean Corpuscular Fjbyoa8510-84-67 09:26:00* Test Item Value Reference Range Interpretation Comments Mean Corpuscular Volume (test code = 787-2) 88.1 81-99 [facility] CenterMean Corpuscular Vtbuyqpykr4565-40-04 09:26:00* Test Item Value Reference Range Interpretation Comments Mean Corpuscular Hemoglobin (test code = 785-6) 29.8 28-32 [facility] CenterMean Corpuscular Hemoglobin Concent 2017-08-05 09:26:00* Test Item Value Reference Range Interpretation Comments Mean Corpuscular Hemoglobin Concent (test code = 786-4) 33.9 31-35 [facility] CenterRed Cell Distribution Lexpx6445-62-80 09:26:00* Test Item Value Reference Range Interpretation Comments Red Cell Distribution Width (test code = 11425-7) 13.3 11.7 -14.4 [facility] CenterPlatelet Micpj4765-83-99 09:26:00* Test Item Value Reference Range Interpretation Comments Platelet Count (test code = 777-3) 249 140-360 [facility] CenterNeutrophils (%) (Auto)2017-08-05 09:26:00 * Test Item Value Reference Range Interpretation Comments Neutrophils (%) (Auto) (test code = 43290-2) 61.6 38.7-80.0 [facility] CenterLymphocytes (%) (Auto)2017-08-05 09:26:00 * Test Item Value Reference Range Interpretation Comments Lymphocytes (%) (Auto) (test code = 736-9) 27.7 18.0-39.1 [facility] CenterMonocytes (%) (Auto)2017-08-05 09:26:00* Test Item Value Reference Range Interpretation Comments Monocytes (%) (Auto) (test code = 5905-5) 7.4 4.4-11.3 [facility] CenterEosinophils (%) (Auto)2017-08-05 09:26:00 * Test Item Value Reference Range Interpretation Comments Eosinophils (%) (Auto) (test code = 713-8) 2.4 0.0-6.0 [facility] CenterBasophils (%) (Auto)2017-08-05 09:26:00* Test Item Value Reference Range Interpretation Comments Basophils (%) (Auto) (test code = 706-2) 0.5 0.0-1.0 [facility] CenterIM GRANULOCYTES %2017-08-05 09:26:00* Test Item Value Reference Range Interpretation Comments IM GRANULOCYTES % (test code = IM GRANULOCYTES %) 0.4 0.0- 1.0 [facility] CenterNeutrophils # (Auto)2017-08-05 09:26:00* Test Item Value Reference Range Interpretation Comments Neutrophils # (Auto) (test code = 751-8) 3.4 2.1-6.9 [facility] CenterLymphocytes # (Auto)2017-08-05 09:26:00* Test Item Value Reference Range Interpretation Comments Lymphocytes # (Auto) (test code = 47526-4) 1.5 1.0-3.2 [facility] CenterMonocytes # (Auto)2017-08-05 09:26:00* Test Item Value Reference Range Interpretation Comments Monocytes # (Auto) (test code = 742-7) 0.4 0.2-0.8 [facility] CenterEosinophils # (Auto)2017-08-05 09:26:00* Test Item Value Reference Range Interpretation Comments Eosinophils # (Auto) (test code = 711-2) 0.1 0.0-0.4 [facility] CenterBasophils # (Auto)2017-08-05 09:26:00* Test Item Value Reference Range Interpretation Comments Basophils # (Auto) (test code = 704-7) 0.0 0.0-0.1 [facility] CenterAbsolute Immature Granulocyte (auto 2017-08-05 09:26:00* Test Item Value Reference Range Interpretation Comments Absolute Immature Granulocyte (auto (alexa t code = Absolute Immature Granulocyte (auto) 0.02 0-0.1 [facility] CenterUrine WGR6571-58-79 09:53:00* Test Item Value Reference Range Interpretation Comments Urine WBC (test code = 5821-4) 6-10 0-5 H [facility] CenterUrine AEZ5140-67-38 09:53:00* Test Item Value Reference Range Interpretation Comments Urine RBC (test code = 50307-6) 0-5 0-5 [facility] CenterUrine Aaqmstia8011-73-06 09:53:00* Test Item Value Reference Range Interpretation Comments Urine Bacteria (test code = 45288-6) MANY NONE H [facility] CenterUrine Epithelial Bnalt6137-83-55 09:53:00 * Test Item Value Reference Range Interpretation Comments Urine Epithelial Cells (test code = 49818-2) FEW NONE [facility] CenterUrine Transitional Epithelial Cells 2017-07-30 09:53:00* Test Item Value Reference Range Interpretation Comments Urine Transitional Epithelial Cells (test code = 8249-5) FEW NONE H [facility] CenterUrine Ombxc3402-05-32 09:45:00* Test Item Value Reference Range Interpretation Comments Urine Color (test code = 5778-6) YELLOW YELLOW [facility] CenterUrine Rfcqgkx3983-17-05 09:45:00* Test Item Value Reference Range Interpretation Comments Urine Clarity (test code = 58298-0) CLOUDY CLEAR H [facility] CenterUrine Specific Ggcegvp2037-13-16 09:45:00 * Test Item Value Reference Range Interpretation Comments Urine Specific [place] (test code = 5811-5) 1.020 1.010-1.02 5 [facility] CenterUrine kY4836-17-04 09:45:00* Test Item Value Reference Range Interpretation Comments Urine pH (test code = 69102-9) 6 5-7 [facility] CenterUrine Leukocyte Wdekjujd5635-81-11 09:45:00* Test Item Value Reference Range Interpretation Comments Urine Leukocyte Esterase (test code = 5799-2) NEGATIVE NEGATIVE [facility] CenterUrine Fxdhtqf6695-58-90 09:45:00* Test Item Value Reference Range Interpretation Comments Urine Nitrite (test code = 10553-0) POSITIVE NEGATIVE H [facility] CenterUrine Rjsiwuy2088-32-99 09:45:00* Test Item Value Reference Range Interpretation Comments Urine Protein (test code = 5804-0) NEGATIVE NEGATIVE [facility] CenterUrine Glucose (UA)2017-07-30 09:45:00* Test Item Value Reference Range Interpretation Comments Urine Glucose (UA) (test code = 2349-9) NEGATIVE NEGATIVE [facility] CenterUrine Rvbwmvl3271-53-04 09:45:00* Test Item Value Reference Range Interpretation Comments Urine Ketones (test code = 67121-0) NEGATIVE NEGATIVE [facility] CenterUrine Whcwtgjcmfzh4454-58-10 09:45:00* Test Item Value Reference Range Interpretation Comments Urine Urobilinogen (test code = 35412-3) 0.2 0.2-1 [facility] CenterUrine Uzzxkruyt6044-88-53 09:45:00* Test Item Value Reference Range Interpretation Comments Urine Bilirubin (test code = 1978-6) NEGATIVE NEGATIVE [facility] CenterUrine Klulp0947-69-92 09:45:00* Test Item Value Reference Range Interpretation Comments Urine Blood (test code = 94155-7) NEGATIVE NEGATIVE [facility] CenterWhite Blood Rhvuf1561-13-75 09:44:00* Test Item Value Reference Range Interpretation Comments White Blood Count (test code = 6690-2) 6.60 4.8-10.8 [facility] CenterRed Blood Rbfnq6186-21-67 09:44:00* Test Item Value Reference Range Interpretation Comments Red Blood Count (test code = 789-8) 4.19 3.6-5.1 [facility] CenterHemoglobin2018-03-01 09:44:00* Test Item Value Reference Range Interpretation Comments Hemoglobin (test code = 69392-1) 12.6 12.0-16.0 [facility] CenterHematocrit2018-03-01 09:44:00* Test Item Value Reference Range Interpretation Comments Hematocrit (test code = 4544-3) 36.8 34.2-44.1 [facility] CenterMean Corpuscular Johapj9788-13-78 09:44:00* Test Item Value Reference Range Interpretation Comments Mean Corpuscular Volume (test code = 787-2) 87.8 81-99 [facility] CenterMean Corpuscular Fypazykzuw3687-11-85 09:44:00* Test Item Value Reference Range Interpretation Comments Mean Corpuscular Hemoglobin (test code = 785-6) 30.1 28-32 [facility] CenterMean Corpuscular Hemoglobin Concent 2017-07-30 09:44:00* Test Item Value Reference Range Interpretation Comments Mean Corpuscular Hemoglobin Concent (test code = 786-4) 34.2 31-35 [facility] CenterRed Cell Distribution Lphdo3330-51-40 09:44:00* Test Item Value Reference Range Interpretation Comments Red Cell Distribution Width (test code = 61056-9) 13.6 11.7 -14.4 [facility] CenterPlatelet Lomvr6642-76-69 09:44:00* Test Item Value Reference Range Interpretation Comments Platelet Count (test code = 777-3) 272 140-360 [facility] CenterNeutrophils (%) (Auto)2017-07-30 09:44:00 * Test Item Value Reference Range Interpretation Comments Neutrophils (%) (Auto) (test code = 78604-8) 72.8 38.7-80.0 [facility] CenterLymphocytes (%) (Auto)2017-07-30 09:44:00 * Test Item Value Reference Range Interpretation Comments Lymphocytes (%) (Auto) (test code = 736-9) 20.0 18.0-39.1 [facility] CenterMonocytes (%) (Auto)2017-07-30 09:44:00* Test Item Value Reference Range Interpretation Comments Monocytes (%) (Auto) (test code = 5905-5) 4.1 4.4-11.3 L [facility] CenterEosinophils (%) (Auto)2017-07-30 09:44:00 * Test Item Value Reference Range Interpretation Comments Eosinophils (%) (Auto) (test code = 713-8) 2.3 0.0-6.0 [facility] CenterBasophils (%) (Auto)2017-07-30 09:44:00* Test Item Value Reference Range Interpretation Comments Basophils (%) (Auto) (test code = 706-2) 0.6 0.0-1.0 [facility] CenterIM GRANULOCYTES %2017-07-30 09:44:00* Test Item Value Reference Range Interpretation Comments IM GRANULOCYTES % (test code = IM GRANULOCYTES %) 0.2 0.0- 1.0 [facility] CenterNeutrophils # (Auto)2017-07-30 09:44:00* Test Item Value Reference Range Interpretation Comments Neutrophils # (Auto) (test code = 751-8) 4.8 2.1-6.9 [facility] CenterLymphocytes # (Auto)2017-07-30 09:44:00* Test Item Value Reference Range Interpretation Comments Lymphocytes # (Auto) (test code = 54639-6) 1.3 1.0-3.2 [facility] CenterMonocytes # (Auto)2017-07-30 09:44:00* Test Item Value Reference Range Interpretation Comments Monocytes # (Auto) (test code = 742-7) 0.3 0.2-0.8 [facility] CenterEosinophils # (Auto)2017-07-30 09:44:00* Test Item Value Reference Range Interpretation Comments Eosinophils # (Auto) (test code = 711-2) 0.2 0.0-0.4 [facility] CenterBasophils # (Auto)2017-07-30 09:44:00* Test Item Value Reference Range Interpretation Comments Basophils # (Auto) (test code = 704-7) 0.0 0.0-0.1 [facility] CenterAbsolute Immature Granulocyte (auto 2017-07-30 09:44:00* Test Item Value Reference Range Interpretation Comments Absolute Immature Granulocyte (auto (alexa t code = Absolute Immature Granulocyte (auto) 0.01 0-0.1 [facility]odium Uzovx5344-74-12 09:43:00* Test Item Value Reference Range Interpretation Comments Sodium Level (test code = 2951-2) 141 136-145 [facility] CenterPotassium Xbcks8726-99-24 09:43:00* Test Item Value Reference Range Interpretation Comments Potassium Level (test code = 2823-3) 3.4 3.5-5.1 L [facility] CenterChloride Rflas6642-91-95 09:43:00* Test Item Value Reference Range Interpretation Comments Chloride Level (test code = 2075-0) 108 98-107 H [facility] CenterCarbon Dioxide Ulcbn3980-14-23 09:43:00* Test Item Value Reference Range Interpretation Comments Carbon Dioxide Level (test code = 2028-9) 22 22-29 [facility] CenterAnion Npd0798-80-82 09:43:00* Test Item Value Reference Range Interpretation Comments Anion Gap (test code = 34017-4) 14.4 8-16 [facility] CenterBlood Urea Uvultlch7846-13-33 09:43:00* Test Item Value Reference Range Interpretation Comments Blood Urea Nitrogen (test code = 3094-0) 8 7-26 [facility] CenterCreatinine2018-03-01 09:43:00* Test Item Value Reference Range Interpretation Comments Creatinine (test code = 2160-0) 0.84 0.57-1.11 [facility] CenterBUN/Creatinine Eupsu3488-97-55 09:43:00* Test Item Value Reference Range Interpretation Comments BUN/Creatinine Ratio (test code = 3097-3) 10 6-25 [facility] CenterEstimat Glomerular Filtration Rate 2017-07-30 09:43:00* Test Item Value Reference Range Interpretation Comments Estimat Glomerular Filtration Rate (test code = 16527-1) 60- >60 Ranges were taken from the National Kidney Disease Education Program and the [facility] literature.Reference ranges:60 or greater: Wywkoq27-80 ( for 3 consecutive months): Chronic kidney disease 15 or less: Kidney failureSaint [facility]illus [facility] CenterGlucose Ludwk4917-70-05 09:43:00* Test Item Value Reference Range Interpretation Comments Glucose Level (test code = FQT9482) 172 74-118 H [facility] CenterCalcium Szpiv2970-21-79 09:43:00* Test Item Value Reference Range Interpretation Comments Calcium Level (test code = 65509-9) 8.5 8.4-10.2 [facility] CenterTotal Oclxqpfuy3262-74-59 09:43:00* Test Item Value Reference Range Interpretation Comments Total Bilirubin (test code = 1975-2) 0.3 0.2-1.2 [facility] CenterAspartate Amino Transf (AST/SGOT) 2017-07-30 09:43:00* Test Item Value Reference Range Interpretation Comments Aspartate Amino Transf (AST/SGOT) (test code = Aspartate Amino Transf (AST/SGOT)) 12 5-34 [facility] CenterAlanine Aminotransferase (ALT/SGPT) 2017-07-30 09:43:00* Test Item Value Reference Range Interpretation Comments Alanine Aminotransferase (ALT/SGPT) (test code = 1742-6) 16 0-55 [facility] CenterTotal Sunsect4451-66-51 09:43:00* Test Item Value Reference Range Interpretation Comments Total Protein (test code = 2885-2) 6.4 6.5-8.1 L [facility] CenterAlbumin2018-03-01 09:43:00* Test Item Value Reference Range Interpretation Comments Albumin (test code = 1751-7) 3.4 3.5-5.0 L [facility] CenterGlobulin2018-03-01 09:43:00* Test Item Value Reference Range Interpretation Comments Globulin (test code = 53910-0) 3.0 2.3-3.5 [facility] CenterAlbumin/Globulin Lpnxt6729-02-78 09:43:00 * Test Item Value Reference Range Interpretation Comments Albumin/Globulin Ratio (test code = 1759-0) 1.1 0.8-2.0 [facility] CenterAlkaline Ltzhvdfauaq5884-14-18 09:43:00* Test Item Value Reference Range Interpretation Comments Alkaline Phosphatase (test code = 6768-6) 86 40-150 [facility] CenterTotal Nexsxiluf3283-46-87 09:43:00* Test Item Value Reference Range Interpretation Comments Total Bilirubin (test code = 1975-2) 0.3 0.2-1.2 [facility] CenterAspartate Amino Transf (AST/SGOT) 2017-07-30 09:43:00* Test Item Value Reference Range Interpretation Comments Aspartate Amino Transf (AST/SGOT) (test code = Aspartate Amino Transf (AST/SGOT)) 12 5-34 [facility] CenterAlanine Aminotransferase (ALT/SGPT) 2017-07-30 09:43:00* Test Item Value Reference Range Interpretation Comments Alanine Aminotransferase (ALT/SGPT) (test code = 1742-6) 16 0-55 [facility] CenterTotal Akmhzhj1828-52-33 09:43:00* Test Item Value Reference Range Interpretation Comments Total Protein (test code = 2885-2) 6.4 6.5-8.1 L [facility] CenterAlbumin2018-03-01 09:43:00* Test Item Value Reference Range Interpretation Comments Albumin (test code = 1751-7) 3.4 3.5-5.0 L [facility] CenterGlobulin2018-03-01 09:43:00* Test Item Value Reference Range Interpretation Comments Globulin (test code = 45731-6) 3.0 2.3-3.5 [facility] CenterAlbumin/Globulin Civia8974-52-74 09:43:00 * Test Item Value Reference Range Interpretation Comments Albumin/Globulin Ratio (test code = 1759-0) 1.1 0.8-2.0 [facility] CenterAlkaline Omazslqoolw8542-81-87 09:43:00* Test Item Value Reference Range Interpretation Comments Alkaline Phosphatase (test code = 6768-6) 86 40-[address] [facility]2018-02-04 07:15:00* Test Item Value Reference Range Interpretation Comments Urine Culture (test code = 630-4) Organism: KLEBSIELLA PNEUMONIAE [facility]2018-02-04 07:15:00* Test Item Value Reference Range Interpretation Comments Urine Culture (test code = 630-4) Organism: KLEBSIELLA PNEUMONIAE [facility]2018-02-04 07:15:00* Test Item Value Reference Range Interpretation Comments Urine Culture (test code = 630-4) Organism: KLEBSIELLA PNEUMONIAE [facility]2018-02-04 07:15:00* Test Item Value Reference Range Interpretation Comments Urine Culture (test code = 630-4) Organism: KLEBSIELLA PNEUMONIAE [facility]2018-02-04 07:15:00* Test Item Value Reference Range Interpretation Comments Urine Culture (test code = 630-4) Organism: KLEBSIELLA PNEUMONIAE [facility]2018-02-04 07:15:00* Test Item Value Reference Range Interpretation Comments Urine Culture (test code = 630-4) Organism: KLEBSIELLA PNEUMONIAE [facility]2018-02-04 07:15:00* Test Item Value Reference Range Interpretation Comments Urine Culture (test code = 630-4) Organism: KLEBSIELLA PNEUMONIAE [facility]2018-02-04 07:15:00* Test Item Value Reference Range Interpretation Comments Urine Culture (test code = 630-4) Organism: KLEBSIELLA PNEUMONIAE [facility]2018-02-04 07:15:00* Test Item Value Reference Range Interpretation Comments Urine Culture (test code = 630-4) Organism: KLEBSIELLA PNEUMONIAE [facility]2018-02-04 07:15:00* Test Item Value Reference Range Interpretation Comments Urine Culture (test code = 630-4) Organism: KLEBSIELLA PNEUMONIAE [facility]2018-02-04 07:15:00* Test Item Value Reference Range Interpretation Comments Urine Culture (test code = 630-4) Organism: KLEBSIELLA PNEUMONIAE [facility] Lydtf0405-96-49 09:45:00* Test Item Value Reference Range Interpretation Comments Sodium Level (test code = 2951-2) 140 136-145 [facility] CenterPotassium Cbfzb3636-93-62 09:45:00* Test Item Value Reference Range Interpretation Comments Potassium Level (test code = 2823-3) 3.9 3.5-5.1 [facility] CenterChloride Yqsol3462-15-00 09:45:00* Test Item Value Reference Range Interpretation Comments Chloride Level (test code = 2075-0) 110 98-107 H [facility] CenterCarbon Dioxide Hfznz2283-72-01 09:45:00* Test Item Value Reference Range Interpretation Comments Carbon Dioxide Level (test code = 2028-9) 22 22-29 [facility] CenterAnion Ugf8997-01-80 09:45:00* Test Item Value Reference Range Interpretation Comments Anion Gap (test code = 54051-4) 11.9 8-16 [facility] CenterBlood Urea Jeapxqfe8119-16-35 09:45:00* Test Item Value Reference Range Interpretation Comments Blood Urea Nitrogen (test code = 3094-0) 12 7-26 [facility] CenterCreatinine2018-02-02 09:45:00* Test Item Value Reference Range Interpretation Comments Creatinine (test code = 2160-0) 0.96 0.57-1.11 [facility] CenterBUN/Creatinine Ncfoy1496-76-90 09:45:00* Test Item Value Reference Range Interpretation Comments BUN/Creatinine Ratio (test code = 3097-3) 13 6-25 [facility] CenterEstimat Glomerular Filtration Rate 2017-07-03 09:45:00* Test Item Value Reference Range Interpretation Comments Estimat Glomerular Filtration Rate (test code = 75358-5) 60- >60 Ranges were taken from the National Kidney Disease Education Program and the [facility] Foundation literature.Reference ranges:60 or greater: Yadrxd66-59 ( for 3 consecutive months): Chronic kidney disease 15 or less: Kidney failureCHI [facility] Hospitals [facility] Transmountain CampusGlucose Ifoim6140-39-32 09:45:00* Test Item Value Reference Range Interpretation Comments Glucose Level (test code = YLE9526) 95 74-118 [facility] CenterCalcium Kaoha6428-22-33 09:45:00* Test Item Value Reference Range Interpretation Comments Calcium Level (test code = 39948-2) 8.8 8.4-10.2 [facility] CenterTotal Tfzluxbhu7215-69-20 09:45:00* Test Item Value Reference Range Interpretation Comments Total Bilirubin (test code = 1975-2) 0.3 0.2-1.2 [facility] CenterAspartate Amino Transf (AST/SGOT) 2017-07-03 09:45:00* Test Item Value Reference Range Interpretation Comments Aspartate Amino Transf (AST/SGOT) (test code = Aspartate Amino Transf (AST/SGOT)) 14 5-34 [facility] CenterAlanine Aminotransferase (ALT/SGPT) 2017-07-03 09:45:00* Test Item Value Reference Range Interpretation Comments Alanine Aminotransferase (ALT/SGPT) (test code = 1742-6) 15 0-55 [facility] CenterTotal Hivyupm0280-88-29 09:45:00* Test Item Value Reference Range Interpretation Comments Total Protein (test code = 2885-2) 6.7 6.5-8.1 [facility] CenterAlbumin2018-02-02 09:45:00* Test Item Value Reference Range Interpretation Comments Albumin (test code = 1751-7) 3.8 3.5-5.0 [facility] CenterGlobulin2018-02-02 09:45:00* Test Item Value Reference Range Interpretation Comments Globulin (test code = 85065-3) 2.9 2.3-3.5 [facility] CenterAlbumin/Globulin Vwfgx1756-71-77 09:45:00 * Test Item Value Reference Range Interpretation Comments Albumin/Globulin Ratio (test code = 1759-0) 1.3 0.8-2.0 [facility] CenterAlkaline Prqprmivbzo3487-37-52 09:45:00* Test Item Value Reference Range Interpretation Comments Alkaline Phosphatase (test code = 6768-6) 81 40-150 [facility] CenterUrine BPQ3081-24-49 09:20:00* Test Item Value Reference Range Interpretation Comments Urine WBC (test code = 5821-4) 0-5 0-5 [facility] CenterUrine EHX5442-06-24 09:20:00* Test Item Value Reference Range Interpretation Comments Urine RBC (test code = 59524-0) NONE 0-5 [facility] CenterUrine Zobptbls9127-01-34 09:20:00* Test Item Value Reference Range Interpretation Comments Urine Bacteria (test code = 76799-3) MODERATE NONE H [facility] CenterUrine Epithelial Anwbe4055-41-22 09:20:00 * Test Item Value Reference Range Interpretation Comments Urine Epithelial Cells (test code = 91605-7) FEW NONE [facility] CenterWhite Blood Doiwe8646-95-82 09:19:00* Test Item Value Reference Range Interpretation Comments White Blood Count (test code = 6690-2) 4.89 4.8-10.8 [facility] CenterRed Blood Remnl9546-41-74 09:19:00* Test Item Value Reference Range Interpretation Comments Red Blood Count (test code = 789-8) 4.32 3.6-5.1 [facility] CenterHemoglobin2018-02-02 09:19:00* Test Item Value Reference Range Interpretation Comments Hemoglobin (test code = 72484-9) 12.8 12.0-16.0 [facility] CenterHematocrit2018-02-02 09:19:00* Test Item Value Reference Range Interpretation Comments Hematocrit (test code = 4544-3) 38.5 34.2-44.1 [facility] CenterMean Corpuscular Znplkn5598-30-85 09:19:00* Test Item Value Reference Range Interpretation Comments Mean Corpuscular Volume (test code = 787-2) 89.1 81-99 [facility] CenterMean Corpuscular Vzbrvdtytx2725-27-17 09:19:00* Test Item Value Reference Range Interpretation Comments Mean Corpuscular Hemoglobin (test code = 785-6) 29.6 28-32 [facility] CenterMean Corpuscular Hemoglobin Concent 2017-07-03 09:19:00* Test Item Value Reference Range Interpretation Comments Mean Corpuscular Hemoglobin Concent (test code = 786-4) 33.2 31-35 [facility] CenterRed Cell Distribution Qxdgi4370-69-11 09:19:00* Test Item Value Reference Range Interpretation Comments Red Cell Distribution Width (test code = 21901-4) 13.6 11.7 -14.4 [facility] CenterPlatelet Spgsb9537-99-97 09:19:00* Test Item Value Reference Range Interpretation Comments Platelet Count (test code = 777-3) 269 140-360 [facility] CenterNeutrophils (%) (Auto)2017-07-03 09:19:00 * Test Item Value Reference Range Interpretation Comments Neutrophils (%) (Auto) (test code = 64178-8) 66.2 38.7-80.0 [facility] CenterLymphocytes (%) (Auto)2017-07-03 09:19:00 * Test Item Value Reference Range Interpretation Comments Lymphocytes (%) (Auto) (test code = 736-9) 24.7 18.0-39.1 [facility] CenterMonocytes (%) (Auto)2017-07-03 09:19:00* Test Item Value Reference Range Interpretation Comments Monocytes (%) (Auto) (test code = 5905-5) 6.3 4.4-11.3 [facility] CenterEosinophils (%) (Auto)2017-07-03 09:19:00 * Test Item Value Reference Range Interpretation Comments Eosinophils (%) (Auto) (test code = 713-8) 2.0 0.0-6.0 [facility] CenterBasophils (%) (Auto)2017-07-03 09:19:00* Test Item Value Reference Range Interpretation Comments Basophils (%) (Auto) (test code = 706-2) 0.6 0.0-1.0 [facility] CenterIM GRANULOCYTES %2017-07-03 09:19:00* Test Item Value Reference Range Interpretation Comments IM GRANULOCYTES % (test code = IM GRANULOCYTES %) 0.2 0.0- 1.0 [facility] CenterNeutrophils # (Auto)2017-07-03 09:19:00* Test Item Value Reference Range Interpretation Comments Neutrophils # (Auto) (test code = 751-8) 3.2 2.1-6.9 [facility] CenterLymphocytes # (Auto)2017-07-03 09:19:00* Test Item Value Reference Range Interpretation Comments Lymphocytes # (Auto) (test code = 03430-0) 1.2 1.0-3.2 [facility] CenterMonocytes # (Auto)2017-07-03 09:19:00* Test Item Value Reference Range Interpretation Comments Monocytes # (Auto) (test code = 742-7) 0.3 0.2-0.8 [facility] CenterEosinophils # (Auto)2017-07-03 09:19:00* Test Item Value Reference Range Interpretation Comments Eosinophils # (Auto) (test code = 711-2) 0.1 0.0-0.4 [facility] CenterBasophils # (Auto)2017-07-03 09:19:00* Test Item Value Reference Range Interpretation Comments Basophils # (Auto) (test code = 704-7) 0.0 0.0-0.1 [facility] CenterAbsolute Immature Granulocyte (auto 2017-07-03 09:19:00* Test Item Value Reference Range Interpretation Comments Absolute Immature Granulocyte (auto (alexa t code = Absolute Immature Granulocyte (auto) 0.01 0-0.1 [facility] CenterUrine Goshv1809-23-44 08:58:00* Test Item Value Reference Range Interpretation Comments Urine Color (test code = 5778-6) YELLOW YELLOW [facility] CenterUrine Vtmhlot1393-00-18 08:58:00* Test Item Value Reference Range Interpretation Comments Urine Clarity (test code = 12829-1) HAZY CLEAR [facility] CenterUrine Specific Dsctsos0002-87-29 08:58:00 * Test Item Value Reference Range Interpretation Comments Urine Specific [place] (test code = 5811-5) 1.025 1.010-1.02 5 [facility] CenterUrine yX5344-81-06 08:58:00* Test Item Value Reference Range Interpretation Comments Urine pH (test code = 41635-2) 5 5-7 [facility] CenterUrine Leukocyte Janlqskz1779-74-13 08:58:00* Test Item Value Reference Range Interpretation Comments Urine Leukocyte Esterase (test code = 5799-2) TRACE NEGATIVE H [facility] CenterUrine Hgrmvoi7798-89-52 08:58:00* Test Item Value Reference Range Interpretation Comments Urine Nitrite (test code = 18460-1) NEGATIVE NEGATIVE [facility] CenterUrine Khtpknd8252-29-98 08:58:00* Test Item Value Reference Range Interpretation Comments Urine Protein (test code = 5804-0) NEGATIVE NEGATIVE [facility] Glucose (UA)2017-07-03 08:58:00* Test Item Value Reference Range Interpretation Comments Urine Glucose (UA) (test code = 2349-9) NEGATIVE NEGATIVE [facility] Xzomqdg4766-28-43 08:58:00* Test Item Value Reference Range Interpretation Comments Urine Ketones (test code = 48095-4) NEGATIVE NEGATIVE [facility] Xzsyrkxykovy3060-34-93 08:58:00* Test Item Value Reference Range Interpretation Comments Urine Urobilinogen (test code = 68697-2) 0.2 0.2-1 [facility] CenterUrine Bwkjhujpq8839-33-24 08:58:00* Test Item Value Reference Range Interpretation Comments Urine Bilirubin (test code = 1978-6) 1+ NEGATIVE H [facility] CenterUrine Nivet9583-41-23 08:58:00* Test Item Value Reference Range Interpretation Comments Urine Blood (test code = 99048-1) NEGATIVE NEGATIVE [facility] CenterU[facility] Zlaw1345-63-28 08:58:00* Test Item Value Reference Range Interpretation Comments Urine Test (test code = 2106-3) NEGATIVE NEGATIVE [facility] Wluu5139-48-53 08:58:00* Test Item Value Reference Range Interpretation Comments Urine Test (test code = 2106-3) NEGATIVE NEGATIVE [facility] CenterU[facility] Pdhw5853-96-27 08:58:00* Test Item Value Reference Range Interpretation Comments Urine Test (test code = 2106-3) NEGATIVE NEGATIVE [facility] CenterU[facility] Xotd3159-30-72 08:58:00* Test Item Value Reference Range Interpretation Comments Urine Test (test code = 6-3) NEGATIVE NEGATIVE [facility] CenterU[facility] Tgbs3285-24-42 08:58:00* Test Item Value Reference Range Interpretation Comments Urine Test (test code = 6-3) NEGATIVE NEGATIVE [facility] CenterU[facility] Vyxs6651-33-88 08:58:00* Test Item Value Reference Range Interpretation Comments Urine Test (test code = 2106-3) NEGATIVE NEGATIVE [facility] CenterU[facility] Rrew0727-27-83 08:58:00* Test Item Value Reference Range Interpretation Comments Urine Test (test code = 2106-3) NEGATIVE NEGATIVE [facility] CenterU[facility] Dgcd4977-55-07 08:58:00* Test Item Value Reference Range Interpretation Comments Urine Test (test code = 6-3) NEGATIVE NEGATIVE [facility] CenterU[facility] Kvzm8227-88-64 08:58:00* Test Item Value Reference Range Interpretation Comments Urine Test (test code = 2106-3) NEGATIVE NEGATIVE [facility] CenterCT [facility]LVIS W [facility] [address] [place] [address] Patient Name: ANGELA ESPINOSA MR #: [id number] : 1975 Age/Sex: 41/F Req #: [id number] Adm Physician: Ordered by: NATALIA MORE DIGITAL MEDIA SPECIALIST Report #: [id number] Location: ER Room/Bed: Procedure: [id number] CT/CT ABDOMEN/PELVIS W Exam Date: 10/26/17 Exam [...] on 10/26/2017 11:40 AM Dictated By: BHARATHI noyola Signed By: BHARATHI GRIGGS MD on 10/26/17 1140 Transcribed By: LULU on 0 10/26/17 1140 COPY TO: NATALIA MORE NP ABDOMEN-1VIEW (KUB) [place] [address] Patient Name: ANGELA ESPINOSA MR #: [id number] OB: 1975 Age/Sex: 41/F Req #: [id number] Adm Physic domo: Ordered by: COLLETTE MARTINEZ MD Report #: [id number] Location: ER Room/Bed: Procedure: [id number] DX/ABDOMEN-1VIEW (KUB) Exam Date: 09/09/17 Exam Time: [address] ATUS: Signed PROCEDURE: X-RAY ABDOMEN - KUB COMPARISON: Patients [facility], DX, ABDOMEN-1VIEW (KUB), 08/23/2017, 13:24. INDICATIONS: [...] TO: AKOSUA MARTINEZ MD CT ABDOMEN W [place] [address] Patient Name: ANGELA ESPINOSA MR #: [id number] : 1975 Age/Sex: 41/F Req #: [id number] Adm Physician: GLENN TILLEY MD Ordered by: GLENN TILLEY MD Report #: [id number] Location: MED/SURG Room/Bed: [facility] Procedure: [id number] CT/ CT ABDOMEN W Exam Date: 08/23/17 [...] COPY TO: GLENN TILLEY MD ABDOMEN-1VIEW (KUB) [place] [address] Patient Name: ANGELA ESPINOSA MR #: [id number] : 1975 Age/Sex: 41/F Req #: [id number] Adm Physician: GLENN TILLEY MD Ordered by: MARINE MUÑOZ MD Report #: [id number] Location: MED/SURG Room/Bed: [facility] Procedure: [id number] DX/A BDOMEN-1VIEW (KUB) Exam Date: 08/23/17 Exam [...] TO: MARINE MUÑOZ MD CT ABDOMEN/PELVIS W [place] [address] Patient Name: ANGELA ESPINOSA MR #: [id number] : 1975 Age/Sex: 41/F Req #: [id number] Adm Physician: GLENN TILLEY MD Ordered by: YOLETTE VILLARREAL MD Report #: [id number] Location: [facility] Room/Bed: [place] [address] Procedure: [id number]/CT ABDOMEN/PELVIS W Exam Date: 08/20/17 Exam T misti: 1030 REPORT STATUS: Signed PROCEDURE: CT ABDOMEN AND PELVIS WITH C ONTRAST TECHNIQUE: The abdomen and pelvis were scanned utilizing a [facility] [employer] helical scanner from the diaphragm to the [...] NAJERA MD 36 Transcribed By: FAVIAN on 08/20/171136 COPY T O: YOLETTE VILLARREAL MD CT ABDOMEN/PELVIS WO [place] [address] Patient Name: ANGELA ESPINOSA MR #: [id number] : 1975 Age/Sex: 41/F Req #: [id number] Adm Physician: Ordered by: MADELINE GILBERT MD Report #: [id number] Location: ER Room/Bed: Procedure: [id number] CT/CT ABDOMEN/PELVIS WO Exam Date: 08/05/17 Exam Time: 09 REPORT STA TUS: Signed PROCEDURE: CT ABDOMEN [...] TO: MAYLIN GILBERT RD, MD CT ABDOMEN/PELVIS [place] [address] Patient Name: ANGELA ESPIONSA MR #: [id number] : 1975 Age/Sex: 41/F Req #: [id number] Adm Physician: Ordered by: MADELINE MCKEON MD Report #: [id number] Location: ER Room/Bed: Procedure: [id number] CT/CT ABDOMEN/PELVIS WO Exam Date: 07/30/17 Exam Time: 0940 REPORT STA TUS: Signed PROCEDURE: CT ABDOMEN AND PELVIS WITHOUT CONTRAST COMPARISON : [facility], CT, CT ABDOMEN/PELVIS WO, 07/03/2017, 9:15. [...] 07/30/17 100 Transcribed By: FAVIAN on 06/18 1008 COPY TO: MADELINE MCKEON MD CT ABDOMEN/PELVIS WO [place] [address] Patient Name: ANGELA ESPINOSA MR #: [id number] : 1975 Age/Sex: 41/F Req #: [id number] Adm Physician: Ordered by: MARTA BARROW MD Report #: [id number] Location: ER Room/Bed: Procedure: [id number] CT/CT ABDOMEN/PELVIS WO Ex am Date: 07/03/17 [...]
[2019-11-03] MEDS: LEVOFLOXACIN 500MG/D5W 100ML 100 ML IV SCH (23:00)
[2019-11-04] VITALS (8 sets, daily range): BP systolic 109–126; BP diastolic 67–81
[2019-11-04 00:04] LABS: RBC,URINE 0-5 /HPF (0-5); WBC,URINE (MAN) 0-5 /HPF (0-5)
[2019-11-04 00:05] LABS: BACTERIA,URINE MANY /HPF; EPITHELIAL CELLS,URINE FEW /LPF
--- NOTE | 2019-11-04 00:09 | NUR ---
COVID-19 SWAB OBTAINED AT THIS TIME. PT TOLERATED WELL. NO ACUTE DISTRESS NOTED.
[2019-11-04] MEDS: SODIUM CHLORIDE 0.9% 1000ML 1,000 ML IV SCH ×3 (00:15→22:39)
--- NOTE | 2019-11-04 00:20 | NUR ---
RECEIVED REPORT FROM SERGEY, ER NURSE. PATIENT ARRIVED VIA WHEELCHAIR TO THE UNIT. PATIENT IN PAIN. PATIENT IS A&OX4 AND AMBULATES. CALL LIGHT WITHIN REACH.
--- NOTE | 2019-11-04 00:37 | NUR ---
CALLED DR. YANG OFFICE AND TALKED TO JEROME MACKENZIE ABOUT PATIENT WANTING HER NIGHT TIME MEDICATION. GURDEEP SAID TO RESUME ALL HOME MEDS.
[2019-11-04] MEDS: ONDANSETRON HCL INJ 2MG/ML 2ML 2 MG/ML VIAL IV PRN ×3 (00:45→20:59)
[2019-11-04] MEDS: MORPHINE SULFATE 2 MG/ML SYR 1ML IV PRN ×5 (00:45→20:59)
[2019-11-04] MEDS: DIAZEPAM 5 MG TAB PO SCH ×2 (00:45→20:59)
[2019-11-04] MEDS: AMITRIPTYLINE HCL 25 MG TAB PO SCH ×2 (00:45→20:59)
[2019-11-04] MEDS ORDERED: CLONAZEPAM 1 MG TAB PO SCH (01:00)
[2019-11-04] MEDS ORDERED: PNEUMOCOCCAL VACCINE POLYVALENT 23 MCG/0.5 ML VIAL IM SCH (02:49)
[2019-11-04] MEDS: LEVOFLOXACIN 500MG/D5W 100ML 100 ML IV SCH ×2 (04:31→22:29)
--- NOTE | 2019-11-04 07:00 | NUR ---
bedside shift report received pt in stable condition denies pain at this time, updated on poc vocied understanding, call light in reach will continue to montior
--- NOTE | 2019-11-04 07:13 | NUR ---
GAVE BEDSIDE SHIFT REPORT TO ONCOMING NURSE. CALL LIGHT WITHIN REACH. PATIENT IN BED.
[2019-11-04] MEDS ORDERED: ACETAMINOPHEN 325 MG TAB PO PRN (08:30)
[2019-11-04] MEDS ORDERED: HYDRALAZINE HCL 20 MG/ML VIAL IV PRN (08:30)
[2019-11-04] MEDS: FAMOTIDINE 20 MG/2 ML VIAL IV SCH ×2 (09:10→18:46)
[2019-11-04 09:32] LABS: BASOPHILS # (AUTO) 0.1 (0.0-0.1); BASOPHILS % 0.7 % (0.0-1.0); EOSINOPHILS # (AUTO) 0.3 (0.0-0.4); EOSINOPHILS % 3.5 % (0.0-6.0); HEMATOCRIT 39.9 % (34.2-44.1); HEMOGLOBIN 12.9 g/dL (12.0-16.0); LYMPHOCYTES # (AUTO) 1.7 (1.0-3.2); LYMPHOCYTES % 21.2 % (18.0-39.1); MEAN CORPUSCULAR HGB CONC 32.3 g/dL (31-35); MEAN CORPUSCULAR VOLUME 86.6 fL (81-99); MONOCYTES # (AUTO) 0.6 (0.2-0.8); MONOCYTES % 6.9 % (4.4-11.3); NEUTROPHILS # (AUTO) 5.4 (2.1-6.9); NEUTROPHILS % 67.2 % (38.7-80.0); PLATELET COUNT 71 x10e3/uL (140-360); RED BLOOD COUNT 4.61 x10e6/uL (3.6-5.1)
[2019-11-04 09:59] LABS: ALANINE AMINOTRANSFERASE 110 IU/L (0-55); ALBUMIN 3.2 g/dL (3.5-5.0); ALBUMIN/GLOBULIN RATIO 1.1 (0.8-2.0); ALKALINE PHOSPHATASE 94 IU/L (40-150); ANION GAP 14.2 mmol/L (8-16); BLOOD UREA NITROGEN 9 mg/dL (7-26); BUN/CREATININE RATIO 10 (6-25); CALCIUM 9.5 mg/dL (8.4-10.2); CARBON DIOXIDE 29 mmol/L (22-29); CHLORIDE 100 mmol/L (98-107); CREATININE, SERUM 0.93 mg/dL (0.57-1.11); EST GLOMERULAR FILTRATION RATE > 60 ML/MIN (60-); GLUCOSE 146 mg/dL (74-118); POTASSIUM 4.2 mmol/L (3.5-5.1); SODIUM 139 mmol/L (136-145)
--- NOTE | 2019-11-04 19:01 | NUR ---
RECEIVED BEDSIDE SHIFT REPORT FROM PREVIOUS NURSE. CALL LIGHT WITHIN REACH. PATIENT IN BED.
[2019-11-05 00:41] VITALS: BP 108/58
[2019-11-05] MEDS: MORPHINE SULFATE 2 MG/ML SYR 1ML IV PRN (05:11)
[2019-11-05] MEDS: ONDANSETRON HCL INJ 2MG/ML 2ML 2 MG/ML VIAL IV PRN (05:11)
[2019-11-05 05:25] VITALS: BP 106/68
[2019-11-05 05:46] LABS: BASOPHILS # (AUTO) 0.1 (0.0-0.1); BASOPHILS % 0.7 % (0.0-1.0); EOSINOPHILS # (AUTO) 0.3 (0.0-0.4); EOSINOPHILS % 3.6 % (0.0-6.0); HEMATOCRIT 35.8 % (34.2-44.1); HEMOGLOBIN 11.7 g/dL (12.0-16.0); LYMPHOCYTES # (AUTO) 1.6 (1.0-3.2); LYMPHOCYTES % 19.8 % (18.0-39.1); MEAN CORPUSCULAR HEMOGLOBIN 28.2 pg (28-32); MEAN CORPUSCULAR HGB CONC 32.7 g/dL (31-35); MEAN CORPUSCULAR VOLUME 86.3 fL (81-99); MONOCYTES # (AUTO) 0.5 (0.2-0.8); MONOCYTES % 6.6 % (4.4-11.3); NEUTROPHILS # (AUTO) 5.6 (2.1-6.9); NEUTROPHILS % 68.8 % (38.7-80.0); RED BLOOD COUNT 4.15 x10e6/uL (3.6-5.1); RED CELL DISTRIBUTION WIDTH 15.1 % (11.7-14.4)
[2019-11-05 06:06] LABS: PLATELET COUNT 45 x10e3/uL (140-360)
[2019-11-05 06:11] LABS: ALANINE AMINOTRANSFERASE 75 IU/L (0-55); ALBUMIN 2.7 g/dL (3.5-5.0); ALBUMIN/GLOBULIN RATIO 0.9 (0.8-2.0); ALKALINE PHOSPHATASE 87 IU/L (40-150); ANION GAP 11.7 mmol/L (8-16); BLOOD UREA NITROGEN 9 mg/dL (7-26); BUN/CREATININE RATIO 11 (6-25); CALCIUM 8.3 mg/dL (8.4-10.2); CARBON DIOXIDE 27 mmol/L (22-29); CHLORIDE 103 mmol/L (98-107); CREATININE, SERUM 0.84 mg/dL (0.57-1.11); EST GLOMERULAR FILTRATION RATE > 60 ML/MIN (60-); GLUCOSE 138 mg/dL (74-118); POTASSIUM 3.7 mmol/L (3.5-5.1); SODIUM 138 mmol/L (136-145)
--- NOTE | 2019-11-05 06:11 | NUR ---
LAB CALLED FOR A CRITICAL PLATELET COUNT OF 45. CALLED DR. YANG OFFICE AND TALKED TO JEROME NEWTON AND TOLD HER ABOUT THE CRITICAL PLATELET COUNT. SHE SAID TO DO NOTHING.
--- NOTE | 2019-11-05 06:55 | NUR ---
GAVE BEDSIDE SHIFT REPORT TO ONCOMING NURSE. CALL LIGHT WITHIN REACH. PATIENT IN BED. HOURLY ROUNDING DONE.
[2019-11-05 08:17] VITALS: BP 103/64
[2019-11-05] MEDS: FAMOTIDINE 20 MG/2 ML VIAL IV SCH (08:50)
[2019-11-05] MEDS: SODIUM CHLORIDE 0.9% 1000ML 1,000 ML IV SCH (08:51)
[2019-11-05 08:52] VITALS: BP 103/64
[2019-11-05] MEDS ORDERED: TYLENOL WITH C1 EACH PO (09:47)
[2019-11-05] MEDS ORDERED: LEVAQUIN500 MG PO (09:47)
[2019-11-05] MEDS ORDERED: MORPHINE SULFATE 2 MG/ML SYR 1ML IV PRN (10:30)
[2019-11-05] MEDS ORDERED: PNEUMOCOCCAL VACCINE POLYVALENT 23 MCG/0.5 ML VIAL ONE (11:42)
[2019-11-05 12:22] VITALS: BP_SYST 114; BP_SYST 160; BP_DIAS 59; BP_DIAS 88
--- NOTE | 2019-11-07 11:28 | Discharge Summary ---
ADMISSION DIAGNOSES: 1. Urinary tract infection present on admission. 2. Bilateral renal stones. 3. Post-traumatic stress disorder. 4. Morbid obesity with a BMI of 42.4. DISCHARGE DIAGNOSES: 1. Urinary tract infection present on admission. 2. Bilateral renal stones. 3. Post-traumatic stress disorder. 4. Morbid obesity with a BMI of 42.4. 5. Klebsiella urinary tract infection present on admission. HISTORY: Kidney stones, PTSD. SURGICAL HISTORY: Umbilical hernia repair, hysterectomy, cholecystectomy. FAMILY HISTORY: Noncontributory. SOCIAL HISTORY: Noncontributory. HOSPITAL COURSE: A 43-year-old female admits with complaints of shooting left back pain that began on Thursday. She had associated nausea and diarrhea, but denies dysuria, hematuria, and fever. She went to the ER on Thursday, got prescriptions for Macrobid and Cipro and was sent home. Her symptoms did not improve. She stopped taking antibiotics due to a rash after three days. On admission, her previous urine culture from just a few days ago came back positive for Klebsiella. She was started on Levaquin. CT of the abdomen and pelvis showed bilateral nonobstructing renal stones, hepatomegaly and hepatic steatosis. Per Urology recommendation, the patient can be discharged home and follow up in 1 to 2 weeks. She was given prescription for Levaquin and will take her ketorolac at home or ibuprofen. The patient understands discharge instructions and agrees to plan. Vital signs stable, the patient afebrile. Dictated by Mariel Dowell NP MD TOREY Holm/MODL /[id number]
== END 2019-11-05 12:35 | disposition home or self-care (01) | DRG 690 ==
LOC: ER 19:22 → ERHOLD 22:30 → MED/SURG 11-04 00:15
PROVIDERS: ADMIT Internal Medicine; ATTEND Internal Medicine
DX: N39.0 Urinary tract infection, site not specified (principal); Z68.41 Body mass index [BMI] 40.0-44.9, adult; N20.0 Calculus of kidney; N23 Unspecified renal colic; Z90.49 Acquired absence of other specified parts of digestive tract; E66.01 Morbid (severe) obesity due to excess calories; F43.10 Post-traumatic stress disorder, unspecified; B96.1 Klebsiella pneumoniae [K. pneumoniae] as the cause of diseases classified elsewhere; Z88.1 Allergy status to other antibiotic agents; Z88.5 Allergy status to narcotic agent; Z88.2 Allergy status to sulfonamides; Z88.8 Allergy status to other drugs, medicaments and biological substances; R31.29 Other microscopic hematuria; D69.6 Thrombocytopenia, unspecified
CPT/HCPCS: 36415; 80053; 81001; 85025; 87086; 87186; 87635; 90732; 99283; J1580; J1885; J1956; J2270; J2405; J7030

== ENCOUNTER 2020-05-07 10:33 | Emergency (ER) | payer OTHER ==
[~2020-05-07] VITALS: Ht 153.4 cm; Wt 99.8 kg
[2020-05-07] MEDS ORDERED: ASPIRIN 81 MG CHEW TAB PO ONE (11:00)
[2020-05-07 11:17] LABS: PREGNANCY TEST, URINE NEGATIVE (NEGATIVE)
[2020-05-07 11:18] LABS: AMPHETAMINES SCREEN,URINE NEGATIVE (NEGATIVE); BENZODIAZEPINES SCREEN,URINE POSITIVE (NEGATIVE); PHENCYCLIDINE SCREEN,URINE NEGATIVE (NEGATIVE)
[2020-05-07 11:50] LABS: BASOPHILS # (AUTO) 0.1 (0.0-0.1); BASOPHILS % 0.9 % (0.0-1.0); EOSINOPHILS # (AUTO) 0.3 (0.0-0.4); EOSINOPHILS % 4.6 % (0.0-6.0); HEMATOCRIT 39.9 % (34.2-44.1); LYMPHOCYTES # (AUTO) 2.3 (1.0-3.2); MEAN CORPUSCULAR HEMOGLOBIN 28.3 pg (28-32); MEAN CORPUSCULAR HGB CONC 32.6 g/dL (31-35); MEAN CORPUSCULAR VOLUME 86.9 fL (81-99); MONOCYTES # (AUTO) 0.3 (0.2-0.8); MONOCYTES % 4.8 % (4.4-11.3); NEUTROPHILS # (AUTO) 3.5 (2.1-6.9); NEUTROPHILS % 54.5 % (38.7-80.0); PLATELET COUNT 296 x10e3/uL (140-360); RED BLOOD COUNT 4.59 x10e6/uL (3.6-5.1); RED CELL DISTRIBUTION WIDTH 13.9 % (11.7-14.4)
[2020-05-07 12:13] LABS: ALANINE AMINOTRANSFERASE 34 IU/L (0-55); ALBUMIN 3.8 g/dL (3.5-5.0); ALBUMIN/GLOBULIN RATIO 1.4 (0.8-2.0); ALKALINE PHOSPHATASE 95 IU/L (40-150); ANION GAP 9.8 mmol/L (8-16); BLOOD UREA NITROGEN 9 mg/dL (7-26); BUN/CREATININE RATIO 10 (6-25); CALCIUM 8.8 mg/dL (8.4-10.2); CARBON DIOXIDE 29 mmol/L (22-29); CHLORIDE 106 mmol/L (98-107); CREATINE KINASE 83 IU/L (29-168); CREATININE, SERUM 0.88 mg/dL (0.57-1.11); EST GLOMERULAR FILTRATION RATE > 60 ML/MIN (60-); GLUCOSE 90 mg/dL (74-118); POTASSIUM 3.8 mmol/L (3.5-5.1); SODIUM 141 mmol/L (136-145)
[2020-05-07] MEDS ORDERED: ONDANSETRON HCL INJ 2MG/ML 2ML 2 MG/ML VIAL IV NR (12:30)
[2020-05-07] MEDS ORDERED: MORPHINE SULFATE INJ 4 MG/ML INJ 1ML IV NR (12:30)
[2020-05-07] MEDS ORDERED: SODIUM CHLORIDE 0.9% 50ML 50 ML ONE (12:34)
[2020-05-07] MEDS ORDERED: IOPAMIDOL 370 MG/ML 200 ML INFUS..BTL INJ ONE (12:35)
[2020-05-07] MEDS ORDERED: KETOROLAC TROMETHAMINE 30 MG/ML VIAL IV ONE (13:54)
== END 2020-05-07 14:27 | disposition home or self-care (01) ==
LOC: ER 10:43
DX: R55 Syncope and collapse (principal); B34.9 Viral infection, unspecified; R11.2 Nausea with vomiting, unspecified; F43.10 Post-traumatic stress disorder, unspecified; E66.01 Morbid (severe) obesity due to excess calories
CPT/HCPCS: 36415; 71260; 80053; 80307; 81025; 82550; 82553; 84484; 85025; 93005; 99284; J1885; J2270; J2405; Q9967

== ENCOUNTER 2020-05-09 07:34 | Emergency (ER) | payer OTHER ==
[~2020-05-09] VITALS: Ht 153.4 cm; Wt 99.8 kg
[2020-05-09] MEDS ORDERED: ZOFRAN4 MG PO (07:55)
[2020-05-09] MEDS ORDERED: ONDANSETRON HCL 4 MG ORAL DISINTEGRATING TAB PO ONE (08:00)
== END 2020-05-09 08:03 | disposition home or self-care (01) ==
LOC: ER 07:45
DX: B34.9 Viral infection, unspecified (principal); R05 Cough; R11.0 Nausea; F43.10 Post-traumatic stress disorder, unspecified; E66.01 Morbid (severe) obesity due to excess calories
CPT/HCPCS: 99283

== ENCOUNTER 2020-07-02 08:49 | Emergency (ER) | payer OTHER ==
[~2020-07-02] VITALS: Ht 153.4 cm; Wt 99.8 kg
[~2020-07-02 08:49] MED LIST changes: +ZOFRAN4 MG PO
[2020-07-02] MEDS ORDERED: SODIUM CHLORIDE 0.9% 1000ML 1,000 ML IV STA ×2 (09:04→10:17)
[2020-07-02 09:14] LABS: BASOPHILS # (AUTO) 0.1 (0.0-0.1); BASOPHILS % 0.6 % (0.0-1.0); EOSINOPHILS # (AUTO) 0.2 (0.0-0.4); EOSINOPHILS % 2.5 % (0.0-6.0); HEMATOCRIT 45.9 % (34.2-44.1); HEMOGLOBIN 15.4 g/dL (12.0-16.0); LYMPHOCYTES # (AUTO) 1.7 (1.0-3.2); LYMPHOCYTES % 19.6 % (18.0-39.1); MEAN CORPUSCULAR HEMOGLOBIN 28.4 pg (28-32); MEAN CORPUSCULAR HGB CONC 33.6 g/dL (31-35); MEAN CORPUSCULAR VOLUME 84.7 fL (81-99); MONOCYTES # (AUTO) 0.3 (0.2-0.8); MONOCYTES % 3.9 % (4.4-11.3); NEUTROPHILS # (AUTO) 6.5 (2.1-6.9); NEUTROPHILS % 73.1 % (38.7-80.0); PLATELET COUNT 317 x10e3/uL (140-360); RED BLOOD COUNT 5.42 x10e6/uL (3.6-5.1); RED CELL DISTRIBUTION WIDTH 13.9 % (11.7-14.4)
[2020-07-02 09:19] LABS: INR 0.94; PROTHROMBIN TIME 13.1 seconds (11.9-14.5)
[2020-07-02 09:20] LABS: PARTIAL THROMBOPLASTIN TIME 29.2 seconds (23.8-35.5)
[2020-07-02 09:30] LABS: ALANINE AMINOTRANSFERASE 16 IU/L (0-55); ALBUMIN 4.3 g/dL (3.5-5.0); ALBUMIN/GLOBULIN RATIO 1.3 (0.8-2.0); ALKALINE PHOSPHATASE 76 IU/L (40-150); AMYLASE 69 U/L (25-125); ANION GAP 15.5 mmol/L (8-16); BLOOD UREA NITROGEN 10 mg/dL (7-26); BUN/CREATININE RATIO 12 (6-25); CALCIUM 9.2 mg/dL (8.4-10.2); CARBON DIOXIDE 24 mmol/L (22-29); CHLORIDE 105 mmol/L (98-107); CREATINE KINASE 71 IU/L (29-168); CREATININE, SERUM 0.83 mg/dL (0.57-1.11); EST GLOMERULAR FILTRATION RATE > 60 ML/MIN (60-); GLUCOSE 119 mg/dL (74-118); LIPASE 27 U/L (8-78); MAGNESIUM 1.9 MG/DL (1.3-2.1); POTASSIUM 3.5 mmol/L (3.5-5.1); SODIUM 141 mmol/L (136-145)
[2020-07-02] MEDS ORDERED: FAMOTIDINE 20 MG/2 ML VIAL IV ONE (09:30)
[2020-07-02] MEDS ORDERED: MORPHINE SULFATE INJ 2 MG/ML SYR IV ONE (09:30)
[2020-07-02] MEDS ORDERED: ONDANSETRON HCL INJ 2MG/ML 2ML 2 MG/ML VIAL IV ONE (09:30)
[2020-07-02] MEDS ORDERED: DIATRIZOATE MEGL/DIATRIZOA SOD 30 ML BTL PO ONE (10:00)
[2020-07-02] MEDS ORDERED: IOPAMIDOL 370 MG/ML 200 ML INFUS..BTL INJ ONE (10:02)
[2020-07-02 10:57] LABS: CLARITY,URINE SL CLOUDY (CLEAR); COLOR,URINE YELLOW (YELLOW)
[2020-07-02 10:58] LABS: KETONES,URINE NEGATIVE (NEGATIVE); LEUKOCYTE ESTERASE ,URINE NEGATIVE (NEGATIVE); NITRITE,URINE NEGATIVE (NEGATIVE); PROTEIN,URINE DIPSTICK NEGATIVE (NEGATIVE); URINE UROBILINOGEN 0.2 mg/dL (0.2 - 1)
[2020-07-02 11:00] LABS: AMPHETAMINES SCREEN,URINE NEGATIVE (NEGATIVE); PHENCYCLIDINE SCREEN,URINE NEGATIVE (NEGATIVE)
[2020-07-02 11:01] LABS: BENZODIAZEPINES SCREEN,URINE POSITIVE (NEGATIVE)
[2020-07-02] MEDS: KETOROLAC TROMETHAMINE 30 MG/ML VIAL IV NR ×2 (11:07→11:25)
[2020-07-02 11:12] LABS: BACTERIA,URINE FEW /HPF; EPITHELIAL CELLS,URINE FEW /LPF; RBC,URINE 0-5 /HPF (0-5); WBC,URINE (MAN) 0-5 /HPF (0-5)
[2020-07-02] MEDS ORDERED: FLOMAX0.4 MG PO (11:40)
[2020-07-02] MEDS ORDERED: KETOROLAC TROME10 MG PO (11:40)
[2020-07-02] MEDS ORDERED: HYDROCODON-ACE1 EAC9 PO (11:40)
[2020-07-02] MEDS ORDERED: ONDANSETRON ODT8 MG PO (11:40)
== END 2020-07-02 11:59 | disposition home or self-care (01) ==
LOC: ER 09:17
DX: N20.0 Calculus of kidney (principal); R10.13 Epigastric pain; R11.2 Nausea with vomiting, unspecified; F43.10 Post-traumatic stress disorder, unspecified; E66.01 Morbid (severe) obesity due to excess calories
CPT/HCPCS: 36415; 71045; 74177; 80053; 80307; 81001; 82150; 82550; 82553; 83690; 83735; 84484; 85025; 85610; 85730; 87086; 93005; 99284; J1885; J2270; J2405; J7030; Q9967

== ENCOUNTER 2020-07-05 08:42 | Inpatient (IN) | payer OTHER ==
[~2020-07-05] VITALS: Ht 162.6 cm; Wt 97.5 kg
[~2020-07-05 08:42] MED LIST changes: +FLOMAX0.4 MG PO; +HYDROCODON-ACE1 EAC9 PO; +KETOROLAC TROME10 MG PO; +ONDANSETRON ODT8 MG PO
[2020-07-05 10:00] LABS: BASOPHILS # (AUTO) 0.1 (0.0-0.1); BASOPHILS % 0.9 % (0.0-1.0); EOSINOPHILS # (AUTO) 0.2 (0.0-0.4); EOSINOPHILS % 2.6 % (0.0-6.0); HEMATOCRIT 40.7 % (34.2-44.1); HEMOGLOBIN 13.6 g/dL (12.0-16.0); LYMPHOCYTES # (AUTO) 1.4 (1.0-3.2); LYMPHOCYTES % 24.7 % (18.0-39.1); MEAN CORPUSCULAR HEMOGLOBIN 28.6 pg (28-32); MEAN CORPUSCULAR HGB CONC 33.4 g/dL (31-35); MEAN CORPUSCULAR VOLUME 85.5 fL (81-99); MONOCYTES # (AUTO) 0.2 (0.2-0.8); MONOCYTES % 4.2 % (4.4-11.3); NEUTROPHILS # (AUTO) 3.9 (2.1-6.9); NEUTROPHILS % 67.4 % (38.7-80.0); PLATELET COUNT 276 x10e3/uL (140-360); RED BLOOD COUNT 4.76 x10e6/uL (3.6-5.1); RED CELL DISTRIBUTION WIDTH 13.7 % (11.7-14.4)
[2020-07-05 10:03] LABS: CLARITY,URINE CLEAR (CLEAR); COLOR,URINE YELLOW (YELLOW); KETONES,URINE NEGATIVE (NEGATIVE); LEUKOCYTE ESTERASE ,URINE TRACE (NEGATIVE); NITRITE,URINE NEGATIVE (NEGATIVE); PROTEIN,URINE DIPSTICK NEGATIVE (NEGATIVE); URINE UROBILINOGEN 1 mg/dL (0.2 - 1)
[2020-07-05 10:19] LABS: ALANINE AMINOTRANSFERASE 17 IU/L (0-55); ALBUMIN 3.8 g/dL (3.5-5.0); ALBUMIN/GLOBULIN RATIO 1.5 (0.8-2.0); ALKALINE PHOSPHATASE 65 IU/L (40-150); ANION GAP 10.2 mmol/L (8-16); BLOOD UREA NITROGEN 12 mg/dL (7-26); BUN/CREATININE RATIO 16 (6-25); CALCIUM 8.4 mg/dL (8.4-10.2); CARBON DIOXIDE 26 mmol/L (22-29); CHLORIDE 108 mmol/L (98-107); CREATINE KINASE 60 IU/L (29-168); CREATININE, SERUM 0.77 mg/dL (0.57-1.11); EST GLOMERULAR FILTRATION RATE > 60 ML/MIN (60-); GLUCOSE 100 mg/dL (74-118); POTASSIUM 4.2 mmol/L (3.5-5.1); SODIUM 140 mmol/L (136-145)
[2020-07-05 10:23] LABS: RBC,URINE >50 /HPF (0-5); WBC,URINE (MAN) 0-5 /HPF (0-5)
[2020-07-05 10:24] LABS: BACTERIA,URINE FEW /HPF; EPITHELIAL CELLS,URINE FEW /LPF
[2020-07-05] MEDS ORDERED: ONDANSETRON HCL INJ 2MG/ML 2ML 2 MG/ML VIAL IV STA (10:30)
[2020-07-05] MEDS ORDERED: MORPHINE SULFATE INJ 4 MG/ML INJ 1ML IV ONE (10:30)
[2020-07-05] MEDS: SODIUM CHLORIDE 0.9% 1000ML 1,000 ML IV SCH ×2 (12:14→16:39)
[2020-07-05] MEDS ORDERED: HYDROMORPHONE 1MG/1ML INJ IV STA (12:53)
[2020-07-05] MEDS ORDERED: ACETAMINOPHEN 650 MG SUPP PR PRN (13:00)
[2020-07-05] MEDS ORDERED: HYDRALAZINE HCL 20 MG/ML VIAL IV PRN (13:00)
[2020-07-05] MEDS: ONDANSETRON HCL INJ 2MG/ML 2ML 2 MG/ML VIAL IV PRN ×2 (13:18→20:13)
[2020-07-05] MEDS: HYDROMORPHONE 1MG/1ML INJ IV PRN ×3 (16:39→23:40)
[2020-07-05] MEDS: FAMOTIDINE 20 MG/2 ML VIAL IV SCH (16:39)
[2020-07-05 16:42] VITALS: BP 111/73
[2020-07-05 20:10] VITALS: BP 110/57
[2020-07-05 20:13] VITALS: BP 110/57
[2020-07-05] MEDS ORDERED: CLONAZEPAM 1 MG TAB PO PRN (20:30)
[2020-07-05] MEDS ORDERED: KETOROLAC TROMETHAMINE 10 MG TAB PO PRN (22:30)
[2020-07-05] MEDS ORDERED: NALOXONE HCL INJ 0.4 MG/ML AMP IV PRN (22:30)
[2020-07-05 23:45] VITALS: BP 117/65
[2020-07-06] MEDS: SODIUM CHLORIDE 0.9% 1000ML 1,000 ML IV SCH ×4 (00:15→23:30)
[2020-07-06] MEDS: HYDROMORPHONE 1MG/1ML INJ IV PRN ×6 (02:40→21:50)
[2020-07-06] MEDS: ONDANSETRON HCL INJ 2MG/ML 2ML 2 MG/ML VIAL IV PRN ×3 (02:51→21:50)
[2020-07-06 05:03] LABS: BASOPHILS # (AUTO) 0.1 (0.0-0.1); BASOPHILS % 0.8 % (0.0-1.0); EOSINOPHILS # (AUTO) 0.3 (0.0-0.4); HEMATOCRIT 37.7 % (34.2-44.1); HEMOGLOBIN 12.2 g/dL (12.0-16.0); LYMPHOCYTES # (AUTO) 2.5 (1.0-3.2); MEAN CORPUSCULAR HEMOGLOBIN 28.7 pg (28-32); MEAN CORPUSCULAR HGB CONC 32.4 g/dL (31-35); MEAN CORPUSCULAR VOLUME 88.7 fL (81-99); MONOCYTES # (AUTO) 0.4 (0.2-0.8); MONOCYTES % 6.2 % (4.4-11.3); NEUTROPHILS # (AUTO) 3.2 (2.1-6.9); NEUTROPHILS % 49.8 % (38.7-80.0); PLATELET COUNT 224 x10e3/uL (140-360); RED BLOOD COUNT 4.25 x10e6/uL (3.6-5.1); RED CELL DISTRIBUTION WIDTH 13.7 % (11.7-14.4)
[2020-07-06 05:12] VITALS: BP 106/57
[2020-07-06 05:30] LABS: ANION GAP 11.1 mmol/L (8-16); BLOOD UREA NITROGEN 8 mg/dL (7-26); BUN/CREATININE RATIO 10 (6-25); CALCIUM 7.7 mg/dL (8.4-10.2); CARBON DIOXIDE 24 mmol/L (22-29); CHLORIDE 109 mmol/L (98-107); CREATININE, SERUM 0.78 mg/dL (0.57-1.11); EST GLOMERULAR FILTRATION RATE > 60 ML/MIN (60-); GLUCOSE 85 mg/dL (74-118); MAGNESIUM 1.8 MG/DL (1.3-2.1); PHOSPHORUS 3.6 MG/DL (2.3-4.7); POTASSIUM 4.1 mmol/L (3.5-5.1); SODIUM 140 mmol/L (136-145)
[2020-07-06 05:54] LABS: THYROID STIMULATING HORMONE 3.395 uIU/mL (0.350-4.940)
[2020-07-06 08:36] VITALS: BP 109/63
[2020-07-06] MEDS: FAMOTIDINE 20 MG/2 ML VIAL IV SCH ×2 (08:37→18:13)
[2020-07-06] MEDS: TAMSULOSIN HCL 0.4 MG CAP PO SCH (08:37)
[2020-07-06 08:38] VITALS: BP 109/63
[2020-07-06] MEDS ORDERED: GENTAMICIN 80MG/NS 100 ML 200 ML IV ONE (11:34)
[2020-07-06] MEDS ORDERED: PROPOFOL IV EMULSION 10 MG/ML 20 ML VIAL ONE (12:22)
[2020-07-06] MEDS ORDERED: LIDOCAINE HCL 2% LOCAL INJ 5 ML SDV VIAL INJ ONE (12:22)
[2020-07-06] MEDS ORDERED: SEVOFLURANE INHAL SOLN 250 ML PEN BTL ONE (12:22)
[2020-07-06] MEDS ORDERED: ONDANSETRON HCL INJ 2MG/ML 2ML 2 MG/ML VIAL ONE (12:22)
[2020-07-06] MEDS ORDERED: PHENAZOPYRIDINE HCL 100 MG TAB PO PRN (12:45)
[2020-07-06] MEDS ORDERED: B&O 60MG R/S 60 MG SUPP PR PRN (12:45)
[2020-07-06] MEDS ORDERED: MIDAZOLAM HCL 2 MG/2 ML VIAL ONE (13:33)
[2020-07-06] MEDS ORDERED: LEVOFLOXACIN 500 MG TAB PO SCH (15:00)
[2020-07-06] MEDS: OXYBUTYNIN CHLORIDE 5 MG TAB PO SCH ×2 (15:47→21:32)
[2020-07-06] MEDS: HYDROCODONE/APAP 10MG-325MG TAB PO PRN ×2 (15:48→23:00)
[2020-07-06 17:10] VITALS: BP 121/70
[2020-07-06 19:48] VITALS: BP 121/70
[2020-07-06 20:46] VITALS: BP 101/55
[2020-07-06] MEDS ORDERED: AMITRIPTYLINE HCL 25 MG TAB PO SCH (21:00)
[2020-07-06] MEDS ORDERED: CLONAZEPAM 1 MG TAB PO SCH (21:00)
[2020-07-07] VITALS: BP 127/68
[2020-07-07 04:00] VITALS: BP 131/75
[2020-07-07] MEDS: ONDANSETRON HCL INJ 2MG/ML 2ML 2 MG/ML VIAL IV PRN (04:38)
[2020-07-07] MEDS: HYDROMORPHONE 1MG/1ML INJ IV PRN (04:38)
[2020-07-07] MEDS ORDERED: OXYBUTYNIN CHLOR5 MG PO (05:38)
[2020-07-07] MEDS ORDERED: PYRIDIUM200 MG PO (05:38)
[2020-07-07] MEDS ORDERED: HYDROCODON-ACE1 EAC9 PO (05:38)
[2020-07-07 05:48] LABS: BASOPHILS # (AUTO) 0.1 (0.0-0.1); BASOPHILS % 0.8 % (0.0-1.0); EOSINOPHILS # (AUTO) 0.2 (0.0-0.4); EOSINOPHILS % 3.8 % (0.0-6.0); HEMATOCRIT 37.8 % (34.2-44.1); HEMOGLOBIN 12.6 g/dL (12.0-16.0); LYMPHOCYTES # (AUTO) 2.2 (1.0-3.2); LYMPHOCYTES % 35.7 % (18.0-39.1); MEAN CORPUSCULAR HEMOGLOBIN 28.6 pg (28-32); MEAN CORPUSCULAR HGB CONC 33.3 g/dL (31-35); MEAN CORPUSCULAR VOLUME 85.7 fL (81-99); MONOCYTES # (AUTO) 0.4 (0.2-0.8); MONOCYTES % 5.9 % (4.4-11.3); NEUTROPHILS # (AUTO) 3.3 (2.1-6.9); NEUTROPHILS % 53.6 % (38.7-80.0); PLATELET COUNT 211 x10e3/uL (140-360); RED BLOOD COUNT 4.41 x10e6/uL (3.6-5.1); RED CELL DISTRIBUTION WIDTH 13.5 % (11.7-14.4)
[2020-07-07 05:59] LABS: ANION GAP 10.8 mmol/L (8-16); BLOOD UREA NITROGEN 9 mg/dL (7-26); BUN/CREATININE RATIO 11 (6-25); CALCIUM 7.9 mg/dL (8.4-10.2); CARBON DIOXIDE 22 mmol/L (22-29); CHLORIDE 112 mmol/L (98-107); CREATININE, SERUM 0.82 mg/dL (0.57-1.11); EST GLOMERULAR FILTRATION RATE > 60 ML/MIN (60-); GLUCOSE 88 mg/dL (74-118); POTASSIUM 3.8 mmol/L (3.5-5.1); SODIUM 141 mmol/L (136-145)
[2020-07-07] MEDS: HYDROCODONE/APAP 10MG-325MG TAB PO PRN (06:48)
[2020-07-07 08:00] VITALS: BP 113/53
[2020-07-07 08:14] VITALS: BP 113/53
[2020-07-07] MEDS: TAMSULOSIN HCL 0.4 MG CAP PO SCH (09:12)
[2020-07-07] MEDS: FAMOTIDINE 20 MG/2 ML VIAL IV SCH (09:12)
[2020-07-07] MEDS: OXYBUTYNIN CHLORIDE 5 MG TAB PO SCH (09:12)
[2020-07-07] MEDS: SODIUM CHLORIDE 0.9% 1000ML 1,000 ML IV SCH (10:05)
== END 2020-07-07 10:14 | disposition home or self-care (01) | DRG 661 ==
LOC: ER 08:45 → ERHOLD 10:55 → MED/SURG2 15:45
PROVIDERS: ADMIT Internal Medicine; ATTEND Internal Medicine
PROC: BT141ZZ Fluoroscopy of Kidneys, Ureters and Bladder using Low Osmolar Contrast (ICD-10-PCS; principal; 2020-07-06 14:30)
PROC: 0T788DZ Dilation of Bilateral Ureters with Intraluminal Device, Via Natural or Artificial Opening Endoscopic (ICD-10-PCS; principal; 2020-07-06 14:30)
PROC: 0TC78ZZ Extirpation of Matter from Left Ureter, Via Natural or Artificial Opening Endoscopic (ICD-10-PCS; principal; 2020-07-06 14:30)
DX: N13.6 Pyonephrosis (principal); E86.0 Dehydration; N39.0 Urinary tract infection, site not specified; R11.2 Nausea with vomiting, unspecified; E34.1 Other hypersecretion of intestinal hormones; F43.10 Post-traumatic stress disorder, unspecified; Z68.37 Body mass index [BMI] 37.0-37.9, adult; F41.9 Anxiety disorder, unspecified; F32.9 Major depressive disorder, single episode, unspecified; E66.9 Obesity, unspecified; Z20.822 Contact with and (suspected) exposure to COVID-19; I10 Essential (primary) hypertension; N81.10 Cystocele, unspecified; N81.6 Rectocele
CPT/HCPCS: 36415; 74176; 74420; 80048; 80053; 81001; 82550; 82553; 83735; 84100; 84443; 84484; 85025; 87086; 88300; 99284; C1758; C1769; C2617; J1170; J1580; J2001; J2250; J2270; J2405; J7030; U0002

== ENCOUNTER 2020-12-12 06:53 | Emergency (ER) | payer OTHER ==
[~2020-12-12] VITALS: Ht 162.6 cm; Wt 90.7 kg
[~2020-12-12 06:53] MED LIST changes: +OXYBUTYNIN CHLOR5 MG PO; +PYRIDIUM200 MG PO
[2020-12-12] MEDS ORDERED: SODIUM CHLORIDE 0.9% 1000ML 1,000 ML IV STA (07:03)
[2020-12-12] MEDS ORDERED: ASPIRIN 81 MG CHEW TAB PO ONE (07:15)
[2020-12-12 07:16] LABS: BASOPHILS % 0.5 % (0.0-1.0); EOSINOPHILS # (AUTO) 0.2 (0.0-0.4); EOSINOPHILS % 2.2 % (0.0-6.0); HEMATOCRIT 43.3 % (34.2-44.1); HEMOGLOBIN 14.7 g/dL (12.0-16.0); LYMPHOCYTES # (AUTO) 2.8 (1.0-3.2); LYMPHOCYTES % 32.6 % (18.0-39.1); MEAN CORPUSCULAR HEMOGLOBIN 28.7 pg (28-32); MEAN CORPUSCULAR HGB CONC 33.9 g/dL (31-35); MEAN CORPUSCULAR VOLUME 84.6 fL (81-99); MONOCYTES # (AUTO) 0.5 (0.2-0.8); NEUTROPHILS % 58.5 % (38.7-80.0); PLATELET COUNT 288 x10e3/uL (140-360); RED BLOOD COUNT 5.12 x10e6/uL (3.6-5.1)
[2020-12-12 07:35] LABS: ALANINE AMINOTRANSFERASE 16 IU/L (0-55); ALBUMIN/GLOBULIN RATIO 1.2 (0.8-2.0); ALKALINE PHOSPHATASE 87 IU/L (40-150); ANION GAP 16.2 mmol/L (8-16); BLOOD UREA NITROGEN 11 mg/dL (7-26); BUN/CREATININE RATIO 13 (6-25); CALCIUM 9.1 mg/dL (8.4-10.2); CARBON DIOXIDE 22 mmol/L (22-29); CHLORIDE 106 mmol/L (98-107); CREATINE KINASE 44 IU/L (29-168); CREATININE, SERUM 0.83 mg/dL (0.57-1.11); EST GLOMERULAR FILTRATION RATE 75 ML/MIN (60-); GLUCOSE 115 mg/dL (74-118); POTASSIUM 4.2 mmol/L (3.5-5.1); SODIUM 140 mmol/L (136-145)
[2020-12-12] MEDS ORDERED: KETOROLAC TROMETHAMINE 30 MG/ML VIAL IV STA (07:46)
[2020-12-12] MEDS ORDERED: MORPHINE SULFATE INJ 4 MG/ML INJ 1ML IV STA (08:09)
[2020-12-12] MEDS ORDERED: IOPAMIDOL 370 MG/ML 200 ML INFUS..BTL INJ ONE (08:56)
[2020-12-12] MEDS ORDERED: SODIUM CHLORIDE 0.9% 50ML 50 ML ONE (08:56)
[2020-12-12] MEDS ORDERED: TYLENOL # 31 EA PO (09:48)
[2020-12-12 09:58] VITALS: BP 127/75
== END 2020-12-12 10:33 | disposition home or self-care (01) ==
LOC: ER 07:13
DX: R07.9 Chest pain, unspecified (principal); R55 Syncope and collapse; S00.83XA Contusion of other part of head, initial encounter; W18.30XA Fall on same level, unspecified, initial encounter; F41.9 Anxiety disorder, unspecified; F43.10 Post-traumatic stress disorder, unspecified; E66.01 Morbid (severe) obesity due to excess calories; Z87.442 Personal history of urinary calculi
CPT/HCPCS: 36415; 70450; 71260; 80053; 82550; 82553; 83880; 84484; 85025; 93005; 93306; 99283; J1885; J2270; J7030; Q9967

== ENCOUNTER 2021-02-13 08:25 | Emergency (ER) | payer OTHER ==
[~2021-02-13] VITALS: Ht 162.6 cm; Wt 90.7 kg
[~2021-02-13 08:25] MED LIST changes: +TYLENOL # 31 EA PO
[2021-02-13 09:36] LABS: BASOPHILS # (AUTO) 0.1 (0.0-0.1); EOSINOPHILS # (AUTO) 0.1 (0.0-0.4); HEMATOCRIT 41.1 % (34.2-44.1); HEMOGLOBIN 13.4 g/dL (12.0-16.0); LYMPHOCYTES # (AUTO) 1.5 (1.0-3.2); LYMPHOCYTES % 28.8 % (18.0-39.1); MEAN CORPUSCULAR HEMOGLOBIN 29.1 pg (28-32); MEAN CORPUSCULAR HGB CONC 32.6 g/dL (31-35); MEAN CORPUSCULAR VOLUME 89.3 fL (81-99); MONOCYTES # (AUTO) 0.3 (0.2-0.8); MONOCYTES % 5.8 % (4.4-11.3); NEUTROPHILS # (AUTO) 3.1 (2.1-6.9); PLATELET COUNT 268 x10e3/uL (140-360); RED CELL DISTRIBUTION WIDTH 13.7 % (11.7-14.4)
[2021-02-13 09:42] LABS: CLARITY,URINE CLOUDY (CLEAR); COLOR,URINE YELLOW (YELLOW); LEUKOCYTE ESTERASE ,URINE SMALL (NEGATIVE); NITRITE,URINE POSITIVE (NEGATIVE)
[2021-02-13 09:43] LABS: KETONES,URINE NEGATIVE (NEGATIVE); PROTEIN,URINE DIPSTICK NEGATIVE (NEGATIVE); URINE UROBILINOGEN 0.2 mg/dL (0.2 - 1)
[2021-02-13 09:58] LABS: ALBUMIN 3.6 g/dL (3.5-5.0); ALBUMIN/GLOBULIN RATIO 1.2 (0.8-2.0); ANION GAP 13.6 mmol/L (8-16); CALCIUM 8.9 mg/dL (8.4-10.2); CREATININE, SERUM 0.88 mg/dL (0.57-1.11); POTASSIUM 4.6 mmol/L (3.5-5.1)
[2021-02-13 10:03] LABS: BACTERIA,URINE MANY /HPF; EPITHELIAL CELLS,URINE MANY /LPF; WBC,URINE (MAN) 21-50 /HPF (0-5)
[2021-02-13] MEDS ORDERED: HYDROCODONE/APAP 5MG-325MG TAB PO ONE (10:15)
[2021-02-13 11:07] LABS: CLARITY,URINE CLEAR (CLEAR); COLOR,URINE YELLOW (YELLOW)
[2021-02-13 11:08] LABS: KETONES,URINE NEGATIVE (NEGATIVE); LEUKOCYTE ESTERASE ,URINE TRACE (NEGATIVE); NITRITE,URINE NEGATIVE (NEGATIVE); PROTEIN,URINE DIPSTICK NEGATIVE (NEGATIVE); URINE UROBILINOGEN 0.2 mg/dL (0.2 - 1)
[2021-02-13] MEDS ORDERED: KETOROLAC TROMETHAMINE 30 MG/ML VIAL IV STA (11:27)
[2021-02-13 11:29] LABS: WBC,URINE (MAN) 21-50 /HPF (0-5)
[2021-02-13 11:30] LABS: BACTERIA,URINE MODERATE /HPF; EPITHELIAL CELLS,URINE MODERATE /LPF; RBC,URINE 0-5 /HPF (0-5)
[2021-02-13] MEDS ORDERED: KETOROLAC TROMETHAMINE 30 MG/ML VIAL ONE (11:42)
[2021-02-13] MEDS ORDERED: MACROBID 100 M100 MG PO (12:41)
== END 2021-02-13 13:30 | disposition home or self-care (01) ==
LOC: ER 08:30
DX: M54.5 Low back pain (principal); F41.9 Anxiety disorder, unspecified; F43.10 Post-traumatic stress disorder, unspecified; E66.01 Morbid (severe) obesity due to excess calories; Z87.442 Personal history of urinary calculi
CPT/HCPCS: 36415; 74176; 80053; 81001; 85025; 87086; 87186; 99284; J1885

== ENCOUNTER 2021-03-20 08:26 | Emergency (ER) | payer OTHER ==
[~2021-03-20] VITALS: Ht 162.6 cm; Wt 90.7 kg
[~2021-03-20 08:26] MED LIST changes: +MACROBID 100 M100 MG PO
[2021-03-20] MEDS ORDERED: ONDANSETRON HCL INJ 2MG/ML 2ML 2 MG/ML VIAL IV STA (08:47)
[2021-03-20] MEDS ORDERED: KETOROLAC TROMETHAMINE 30 MG/ML VIAL IV STA (08:47)
[2021-03-20] MEDS ORDERED: SODIUM CHLORIDE 0.9% 1000ML 1,000 ML IV STA (08:47)
[2021-03-20 09:18] LABS: BASOPHILS % 0.8 % (0.0-1.0); EOSINOPHILS # (AUTO) 0.2 (0.0-0.4); EOSINOPHILS % 3.4 % (0.0-6.0); HEMATOCRIT 41.3 % (34.2-44.1); HEMOGLOBIN 14.1 g/dL (12.0-16.0); LYMPHOCYTES # (AUTO) 1.8 (1.0-3.2); LYMPHOCYTES % 36.7 % (18.0-39.1); MEAN CORPUSCULAR HEMOGLOBIN 29.1 pg (28-32); MEAN CORPUSCULAR HGB CONC 34.1 g/dL (31-35); MEAN CORPUSCULAR VOLUME 85.2 fL (81-99); MONOCYTES # (AUTO) 0.3 (0.2-0.8); MONOCYTES % 6.7 % (4.4-11.3); NEUTROPHILS # (AUTO) 2.6 (2.1-6.9); NEUTROPHILS % 52.2 % (38.7-80.0); PLATELET COUNT 279 x10e3/uL (140-360); RED BLOOD COUNT 4.85 x10e6/uL (3.6-5.1)
[2021-03-20 09:36] LABS: CLARITY,URINE CLEAR (CLEAR); COLOR,URINE YELLOW (YELLOW); KETONES,URINE NEGATIVE (NEGATIVE); LEUKOCYTE ESTERASE ,URINE TRACE (NEGATIVE); NITRITE,URINE NEGATIVE (NEGATIVE); PROTEIN,URINE DIPSTICK NEGATIVE (NEGATIVE); URINE UROBILINOGEN 0.2 mg/dL (0.2 - 1)
[2021-03-20 09:38] LABS: ALBUMIN/GLOBULIN RATIO 1.4 (0.8-2.0); CALCIUM 8.9 mg/dL (8.4-10.2); CREATININE, SERUM 0.7 mg/dL (0.57-1.11)
[2021-03-20 10:07] LABS: EPITHELIAL CELLS,URINE MANY /LPF; RBC,URINE 0-5 /HPF (0-5)
[2021-03-20 10:08] LABS: BACTERIA,URINE MODERATE /HPF
[2021-03-20 12:19] LABS: CLARITY,URINE SL CLOUDY (CLEAR); COLOR,URINE YELLOW (YELLOW); LEUKOCYTE ESTERASE ,URINE NEGATIVE (NEGATIVE); NITRITE,URINE NEGATIVE (NEGATIVE); PROTEIN,URINE DIPSTICK NEGATIVE (NEGATIVE)
[2021-03-20 12:20] LABS: KETONES,URINE NEGATIVE (NEGATIVE); URINE UROBILINOGEN 0.2 mg/dL (0.2 - 1)
[2021-03-20 12:31] LABS: BACTERIA,URINE FEW /HPF; EPITHELIAL CELLS,URINE FEW /LPF
== END 2021-03-20 12:10 | disposition home or self-care (01) ==
LOC: ER 08:45
DX: N39.0 Urinary tract infection, site not specified (principal); F41.9 Anxiety disorder, unspecified; F43.10 Post-traumatic stress disorder, unspecified; E66.01 Morbid (severe) obesity due to excess calories; Z87.442 Personal history of urinary calculi
CPT/HCPCS: 36415; 74176; 80053; 81001; 85025; 87086; 87186; 99284; J1885; J2405; J7030

== ENCOUNTER 2021-04-16 08:15 | Emergency (ER) | payer OTHER ==
[~2021-04-16] VITALS: Ht 162.6 cm; Wt 90.7 kg
[2021-04-16] MEDS ORDERED: SODIUM CHLORIDE 0.9% 1000ML 1,000 ML IV STA (08:26)
[2021-04-16] MEDS ORDERED: Morphine 4mg Syringe 4 MG/ML INJ IV NR (08:30)
[2021-04-16] MEDS ORDERED: ONDANSETRON HCL INJ 2MG/ML 2ML 2 MG/ML VIAL IV NR (08:30)
[2021-04-16 09:10] LABS: BASOPHILS % 0.8 % (0.0-1.0); EOSINOPHILS # (AUTO) 0.1 (0.0-0.4); EOSINOPHILS % 2.2 % (0.0-6.0); HEMATOCRIT 40.7 % (34.2-44.1); HEMOGLOBIN 13.5 g/dL (12.0-16.0); LYMPHOCYTES # (AUTO) 1.7 (1.0-3.2); LYMPHOCYTES % 34.6 % (18.0-39.1); MEAN CORPUSCULAR HEMOGLOBIN 29.2 pg (28-32); MEAN CORPUSCULAR HGB CONC 33.2 g/dL (31-35); MEAN CORPUSCULAR VOLUME 88.1 fL (81-99); MONOCYTES # (AUTO) 0.2 (0.2-0.8); MONOCYTES % 4.6 % (4.4-11.3); NEUTROPHILS # (AUTO) 2.9 (2.1-6.9); NEUTROPHILS % 57.4 % (38.7-80.0); PLATELET COUNT 242 x10e3/uL (140-360); RED BLOOD COUNT 4.62 x10e6/uL (3.6-5.1); RED CELL DISTRIBUTION WIDTH 13.6 % (11.7-14.4)
[2021-04-16 09:34] LABS: ALANINE AMINOTRANSFERASE 21 IU/L (0-55); ALBUMIN 3.9 g/dL (3.5-5.0); ALBUMIN/GLOBULIN RATIO 1.3 (0.8-2.0); ALKALINE PHOSPHATASE 86 IU/L (40-150); ANION GAP 12.9 mmol/L (8-16); CALCIUM 8.8 mg/dL (8.4-10.2); CARBON DIOXIDE 26 mmol/L (22-29); CHLORIDE 106 mmol/L (98-107); CREATINE KINASE 61 IU/L (29-168); CREATININE, SERUM 0.82 mg/dL (0.57-1.11); EST GLOMERULAR FILTRATION RATE 76 ML/MIN (60-); GLUCOSE 111 mg/dL (74-118); MAGNESIUM 1.7 MG/DL (1.3-2.1); POTASSIUM 3.9 mmol/L (3.5-5.1); SODIUM 141 mmol/L (136-145)
[2021-04-16 09:45] LABS: CLARITY,URINE HAZY (CLEAR); COLOR,URINE YELLOW (YELLOW); KETONES,URINE NEGATIVE (NEGATIVE); LEUKOCYTE ESTERASE ,URINE NEGATIVE (NEGATIVE); NITRITE,URINE NEGATIVE (NEGATIVE); PROTEIN,URINE DIPSTICK NEGATIVE (NEGATIVE); URINE UROBILINOGEN 0.2 mg/dL (0.2 - 1)
[2021-04-16 09:45] LABS: INR 0.92; PROTHROMBIN TIME 13.1 seconds (11.9-14.5)
[2021-04-16 09:46] LABS: PARTIAL THROMBOPLASTIN TIME 32.9 seconds (23.8-35.5)
[2021-04-16 09:52] LABS: BLOOD UREA NITROGEN 12 mg/dL (7-26); BUN/CREATININE RATIO 14 (6-25)
[2021-04-16] MEDS ORDERED: ASPIRIN 81 MG CHEW TAB PO NR (09:53)
[2021-04-16 09:58] LABS: BACTERIA,URINE MANY /HPF; EPITHELIAL CELLS,URINE FEW /LPF; RBC,URINE 0-5 /HPF (0-5)
[2021-04-16] MEDS ORDERED: HYDROMORPHONE 1MG/1ML INJ IV NR (10:00)
[2021-04-16] MEDS ORDERED: SODIUM CHLORIDE 0.9% 50ML 50 ML ONE (10:11)
[2021-04-16] MEDS ORDERED: IOPAMIDOL 370 MG/ML 200 ML INFUS..BTL INJ ONE (10:12)
[2021-04-16] MEDS ORDERED: KETOROLAC TROMETHAMINE 30 MG/ML VIAL IV STA (12:12)
[2021-04-16 12:38] LABS: CREATINE KINASE MB 0.7 ng/mL (0-5.0)
[2021-04-16 13:16] VITALS: BP 133/86
== END 2021-04-16 13:19 | disposition home or self-care (01) ==
LOC: ER 08:20
DX: R07.89 Other chest pain (principal); R06.02 Shortness of breath; F41.9 Anxiety disorder, unspecified; F43.10 Post-traumatic stress disorder, unspecified; E66.01 Morbid (severe) obesity due to excess calories; Z20.822 Contact with and (suspected) exposure to COVID-19
CPT/HCPCS: 36415; 71045; 71260; 74176; 80053; 81001; 82550; 82553; 83735; 83880; 84484; 85025; 85379; 85610; 85730; 87086; 87186; 93005; 99284; J1170; J1885; J2270; J2405; J7030; Q9967; U0002

== ENCOUNTER 2021-05-28 07:18 | Observation (INO) | payer OTHER ==
[~2021-05-28] VITALS: Ht 162.6 cm; Wt 90.7 kg
[2021-05-28] MEDS ORDERED: SODIUM CHLORIDE 0.9% 1000ML 1,000 ML IV ONE (07:45)
[2021-05-28 07:51] LABS: BASOPHILS # (AUTO) 0.1 (0.0-0.1); BASOPHILS % 0.6 % (0.0-1.0); EOSINOPHILS # (AUTO) 0.2 (0.0-0.4); EOSINOPHILS % 2.6 % (0.0-6.0); HEMATOCRIT 43.4 % (34.2-44.1); HEMOGLOBIN 14.5 g/dL (12.0-16.0); LYMPHOCYTES # (AUTO) 2.6 (1.0-3.2); LYMPHOCYTES % 31.1 % (18.0-39.1); MEAN CORPUSCULAR HEMOGLOBIN 29.4 pg (28-32); MEAN CORPUSCULAR HGB CONC 33.4 g/dL (31-35); MONOCYTES # (AUTO) 0.5 (0.2-0.8); MONOCYTES % 5.6 % (4.4-11.3); NEUTROPHILS % 59.9 % (38.7-80.0); PLATELET COUNT 307 x10e3/uL (140-360); RED BLOOD COUNT 4.93 x10e6/uL (3.6-5.1); RED CELL DISTRIBUTION WIDTH 13.4 % (11.7-14.4)
[2021-05-28 07:57] LABS: CLARITY,URINE SL CLOUDY (CLEAR); COLOR,URINE YELLOW (YELLOW); KETONES,URINE NEGATIVE (NEGATIVE); LEUKOCYTE ESTERASE ,URINE NEGATIVE (NEGATIVE); NITRITE,URINE POSITIVE (NEGATIVE); PROTEIN,URINE DIPSTICK NEGATIVE (NEGATIVE); URINE UROBILINOGEN 0.2 mg/dL (0.2 - 1)
[2021-05-28] MEDS ORDERED: PIPERACILLIN/TAZOBACTAM 4.5 GM in SODIUM CHLORIDE 0.9% 100 ML IV STA (08:00)
[2021-05-28 08:07] LABS: BACTERIA,URINE MANY /HPF; EPITHELIAL CELLS,URINE MODERATE /LPF; RBC,URINE 0-5 /HPF (0-5); WBC,URINE (MAN) 21-50 /HPF (0-5)
[2021-05-28 08:09] LABS: ANION GAP 15.5 mmol/L (8-16); CALCIUM 8.8 mg/dL (8.4-10.2); CREATININE, SERUM 0.8 mg/dL (0.57-1.11); POTASSIUM 3.5 mmol/L (3.5-5.1)
[2021-05-28] MEDS ORDERED: KETOROLAC TROMETHAMINE 30 MG/ML VIAL IV ONE (08:30)
[2021-05-28] MEDS ORDERED: FENTANYL CITRATE/PF 100MCG/2 ML INJ IV PRN (08:30)
[2021-05-28] MEDS ORDERED: DIAZEPAM5 MG PO (11:03)
[2021-05-28] MEDS ORDERED: AMITRIPTYLINE100 MG PO (11:03)
[2021-05-28] MEDS ORDERED: KETOROLAC TROME10 MG PO (11:03)
[2021-05-28 11:07] VITALS: BP 124/87
[2021-05-28] MEDS: ONDANSETRON HCL INJ 2MG/ML 2ML 2 MG/ML VIAL IV PRN ×2 (11:19→15:54)
[2021-05-28] MEDS: Morphine 4mg Syringe 4 MG/ML INJ IV PRN ×3 (11:19→20:32)
[2021-05-28 12:21] VITALS: BP 123/70
[2021-05-28 16:00] VITALS: BP 115/70
[2021-05-28] MEDS ORDERED: HYDROCODONE/APAP 10MG-325MG TAB PO PRN (19:30)
[2021-05-28 20:00] VITALS: BP 105/77
[2021-05-28] MEDS: KETOROLAC TROMETHAMINE 10 MG TAB PO SCH (20:30)
[2021-05-28] MEDS: DIAZEPAM 5 MG TAB PO SCH (20:30)
[2021-05-28 21:47] VITALS: BP 105/77
[2021-05-28] MEDS: AMITRIPTYLINE HCL 25 MG TAB PO SCH (22:04)
[2021-05-28] MEDS: CLONAZEPAM 1 MG TAB PO SCH (22:04)
[2021-05-29] VITALS (8 sets, daily range): BP systolic 93–109; BP diastolic 55–69
[2021-05-29] MEDS: Morphine 4mg Syringe 4 MG/ML INJ IV PRN ×5 (00:53→21:44)
[2021-05-29] MEDS: KETOROLAC TROMETHAMINE 10 MG TAB PO SCH ×6 (02:00→22:00)
[2021-05-29 05:06] LABS: BASOPHILS % 0.6 % (0.0-1.0); EOSINOPHILS # (AUTO) 0.1 (0.0-0.4); EOSINOPHILS % 1.8 % (0.0-6.0); HEMATOCRIT 40.4 % (34.2-44.1); HEMOGLOBIN 13.2 g/dL (12.0-16.0); LYMPHOCYTES # (AUTO) 1.6 (1.0-3.2); LYMPHOCYTES % 25.6 % (18.0-39.1); MEAN CORPUSCULAR HEMOGLOBIN 29.1 pg (28-32); MEAN CORPUSCULAR HGB CONC 32.7 g/dL (31-35); MONOCYTES # (AUTO) 0.4 (0.2-0.8); MONOCYTES % 5.8 % (4.4-11.3); NEUTROPHILS # (AUTO) 4.1 (2.1-6.9); NEUTROPHILS % 65.9 % (38.7-80.0); PLATELET COUNT 244 x10e3/uL (140-360); RED BLOOD COUNT 4.54 x10e6/uL (3.6-5.1); RED CELL DISTRIBUTION WIDTH 13.5 % (11.7-14.4)
[2021-05-29 05:35] LABS: ANION GAP 11.1 mmol/L (8-16); CALCIUM 8.3 mg/dL (8.4-10.2); CREATININE, SERUM 0.83 mg/dL (0.57-1.11); POTASSIUM 4.1 mmol/L (3.5-5.1)
[2021-05-29] MEDS: ONDANSETRON HCL INJ 2MG/ML 2ML 2 MG/ML VIAL IV PRN (11:53)
[2021-05-29] MEDS: LEVOFLOXACIN 500MG/D5W 100ML 100 ML IV SCH (15:05)
[2021-05-29] MEDS ORDERED: SODIUM CHLORIDE 0.9% 250ML 250 ML ONE (15:15)
[2021-05-29] MEDS: DIAZEPAM 5 MG TAB PO SCH (21:13)
[2021-05-29] MEDS: CLONAZEPAM 1 MG TAB PO SCH (21:13)
[2021-05-29] MEDS: AMITRIPTYLINE HCL 25 MG TAB PO SCH (21:21)
[2021-05-30] VITALS: BP 93/66
[2021-05-30] MEDS: KETOROLAC TROMETHAMINE 10 MG TAB PO SCH ×4 (00:57→13:57)
[2021-05-30 04:00] VITALS: BP 100/74
[2021-05-30] MEDS: Morphine 4mg Syringe 4 MG/ML INJ IV PRN ×3 (04:25→12:53)
[2021-05-30 07:40] VITALS: BP 116/71
[2021-05-30 08:13] VITALS: BP 116/71
[2021-05-30 11:52] VITALS: BP 111/69
[2021-05-30] MEDS: LEVOFLOXACIN 500MG/D5W 100ML 100 ML IV SCH (13:06)
[2021-05-30 15:29] VITALS: BP 109/68
[2021-05-30] MEDS ORDERED: ONDANSETRON HCL 4 MG ORAL DISINTEGRATING TAB PO PRN (16:00)
[2021-05-31] MEDS ORDERED: LEVOFLOXACIN 500 MG TAB PO SCH (14:00)
== END 2021-05-30 15:53 | disposition home or self-care (01) ==
LOC: ER 07:38 → ERHOLD 09:20 → MED/SURG 10:32 → INTOOBSV 05-30 08:48 → OBSVTOIN 05-30 08:48
PROVIDERS: ADMIT Family Medicine; ATTEND Family Medicine
DX: N20.0 Calculus of kidney (principal); N39.0 Urinary tract infection, site not specified; K76.0 Fatty (change of) liver, not elsewhere classified; F32.A Depression, unspecified; F41.9 Anxiety disorder, unspecified; Z20.822 Contact with and (suspected) exposure to COVID-19; Z90.49 Acquired absence of other specified parts of digestive tract; N10 Acute pyelonephritis; B96.20 Unspecified Escherichia coli [E. coli] as the cause of diseases classified elsewhere; B96.89 Other specified bacterial agents as the cause of diseases classified elsewhere; Z16.12 Extended spectrum beta lactamase (ESBL) resistance; E66.9 Obesity, unspecified; Z68.34 Body mass index [BMI] 34.0-34.9, adult; N28.1 Cyst of kidney, acquired; N26.1 Atrophy of kidney (terminal)
CPT/HCPCS: 36415 ×2; 74176; 80048 ×2; 81001; 85025 ×2; 87086; 87186; 94799 ×2; 99284; G0378 ×3; J1956 ×2; J2270 ×3; J2405 ×2; J2543; J7050 ×2; U0002

== ENCOUNTER 2021-07-04 07:33 | Emergency (ER) | payer OTHER ==
[~2021-07-04] VITALS: Ht 162.6 cm; Wt 90.7 kg
[~2021-07-04 07:33] MED LIST changes: +AMITRIPTYLINE100 MG PO; +DIAZEPAM5 MG PO
[2021-07-04] MEDS ORDERED: SODIUM CHLORIDE 0.9% 1000ML 1,000 ML IV ONE (07:45)
[2021-07-04] MEDS ORDERED: DIPHENHYDRAMINE HCL INJ 50 MG/ML VIAL IV ONE (07:45)
[2021-07-04] MEDS ORDERED: METOCLOPRAMIDE HCL 10 MG/2ML VIAL IV ONE (07:45)
[2021-07-04 08:00] LABS: BASOPHILS # (AUTO) 0.1 (0.0-0.1); BASOPHILS % 0.6 % (0.0-1.0); EOSINOPHILS # (AUTO) 0.1 (0.0-0.4); EOSINOPHILS % 1.7 % (0.0-6.0); HEMATOCRIT 45.4 % (34.2-44.1); HEMOGLOBIN 14.7 g/dL (12.0-16.0); LYMPHOCYTES # (AUTO) 1.9 (1.0-3.2); LYMPHOCYTES % 23.9 % (18.0-39.1); MEAN CORPUSCULAR HEMOGLOBIN 29.2 pg (28-32); MEAN CORPUSCULAR HGB CONC 32.4 g/dL (31-35); MEAN CORPUSCULAR VOLUME 90.1 fL (81-99); MONOCYTES # (AUTO) 0.5 (0.2-0.8); MONOCYTES % 6.9 % (4.4-11.3); NEUTROPHILS # (AUTO) 5.2 (2.1-6.9); NEUTROPHILS % 66.8 % (38.7-80.0); PLATELET COUNT 284 x10e3/uL (140-360); RED BLOOD COUNT 5.04 x10e6/uL (3.6-5.1); RED CELL DISTRIBUTION WIDTH 13.9 % (11.7-14.4)
[2021-07-04 08:15] LABS: ALBUMIN 4.1 g/dL (3.5-5.0); ALBUMIN/GLOBULIN RATIO 1.2 (0.8-2.0); ANION GAP 14.3 mmol/L (8-16); CALCIUM 9.1 mg/dL (8.4-10.2); CREATININE, SERUM 0.77 mg/dL (0.57-1.11); POTASSIUM 4.3 mmol/L (3.5-5.1)
[2021-07-04 08:20] LABS: CLARITY,URINE CLEAR (CLEAR); COLOR,URINE YELLOW (YELLOW); KETONES,URINE NEGATIVE (NEGATIVE); LEUKOCYTE ESTERASE ,URINE NEGATIVE (NEGATIVE); NITRITE,URINE NEGATIVE (NEGATIVE); PROTEIN,URINE DIPSTICK NEGATIVE (NEGATIVE)
[2021-07-04 08:21] LABS: URINE UROBILINOGEN 0.2 mg/dL (0.2 - 1)
[2021-07-04 08:21] LABS: CREATINE KINASE MB 0.7 ng/mL (0-5.0)
[2021-07-04 08:22] LABS: LIPASE 27 U/L (8-78)
[2021-07-04 08:23] LABS: BENZODIAZEPINES SCREEN,URINE POSITIVE (NEGATIVE)
[2021-07-04 08:26] LABS: AMPHETAMINES SCREEN,URINE NEGATIVE (NEGATIVE); PHENCYCLIDINE SCREEN,URINE NEGATIVE (NEGATIVE)
[2021-07-04] MEDS ORDERED: KETOROLAC TROMETHAMINE 30 MG/ML VIAL IV STA (08:38)
[2021-07-04 08:54] LABS: BACTERIA,URINE MODERATE /HPF; EPITHELIAL CELLS,URINE MODERATE /LPF; RBC,URINE 0-5 /HPF (0-5)
[2021-07-04] MEDS ORDERED: SODIUM CHLORIDE 0.9% 50ML 50 ML ONE (08:57)
[2021-07-04] MEDS ORDERED: IOPAMIDOL 370 MG/ML 200 ML INFUS..BTL INJ ONE (08:58)
== END 2021-07-04 11:13 | disposition home or self-care (01) ==
LOC: ER 07:43
DX: R10.12 Left upper quadrant pain (principal); F41.9 Anxiety disorder, unspecified; F43.10 Post-traumatic stress disorder, unspecified; E66.01 Morbid (severe) obesity due to excess calories; Z87.442 Personal history of urinary calculi; Z86.16 Personal history of COVID-19
CPT/HCPCS: 36415; 74177; 80053; 80307; 81001; 82550; 82553; 83690; 84484; 84702; 85025; 99284; J1200; J1885; J2765; J7030; Q9967

== ENCOUNTER 2021-08-03 06:16 | Emergency (ER) | payer OTHER ==
[~2021-08-03] VITALS: Ht 162.6 cm; Wt 90.7 kg
[2021-08-03] MEDS ORDERED: ONDANSETRON HCL INJ 2MG/ML 2ML 2 MG/ML VIAL IV STA (06:27)
[2021-08-03] MEDS ORDERED: FAMOTIDINE 20 MG/2 ML VIAL IV STA (06:27)
[2021-08-03] MEDS ORDERED: KETOROLAC TROMETHAMINE 30 MG/ML VIAL IV STA (06:27)
[2021-08-03] MEDS ORDERED: SODIUM CHLORIDE 0.9% 1000ML 1,000 ML IV SCH (06:30)
[2021-08-03 06:37] LABS: BASOPHILS # (AUTO) 0.1 (0.0-0.1); BASOPHILS % 1.1 % (0.0-1.0); EOSINOPHILS # (AUTO) 0.1 (0.0-0.4); HEMATOCRIT 43.4 % (34.2-44.1); HEMOGLOBIN 14.6 g/dL (12.0-16.0); LYMPHOCYTES # (AUTO) 1.8 (1.0-3.2); MEAN CORPUSCULAR HEMOGLOBIN 29.7 pg (28-32); MEAN CORPUSCULAR HGB CONC 33.6 g/dL (31-35); MEAN CORPUSCULAR VOLUME 88.4 fL (81-99); MONOCYTES # (AUTO) 0.4 (0.2-0.8); MONOCYTES % 5.4 % (4.4-11.3); NEUTROPHILS # (AUTO) 4.7 (2.1-6.9); NEUTROPHILS % 66.2 % (38.7-80.0); PLATELET COUNT 283 x10e3/uL (140-360); RED BLOOD COUNT 4.91 x10e6/uL (3.6-5.1); RED CELL DISTRIBUTION WIDTH 13.7 % (11.7-14.4)
[2021-08-03 07:24] LABS: ALBUMIN 3.9 g/dL (3.5-5.0); ALBUMIN/GLOBULIN RATIO 1.3 (0.8-2.0); ANION GAP 11.9 mmol/L (8-16); CREATININE, SERUM 0.98 mg/dL (0.57-1.11); POTASSIUM 3.9 mmol/L (3.5-5.1)
[2021-08-03] MEDS ORDERED: REGLAN10 MG PO (07:43)
[2021-08-03] MEDS ORDERED: HYDROCODON-ACE1 EAC9 PO (07:43)
[2021-08-03] MEDS ORDERED: PEPCID20 MG PO (07:43)
[2021-08-03] MEDS ORDERED: HYDROCODONE/APAP 10MG-325MG TAB PO ONE (07:45)
== END 2021-08-03 08:22 | disposition home or self-care (01) ==
LOC: ER 06:26
DX: R10.13 Epigastric pain (principal); K85.90 Acute pancreatitis without necrosis or infection, unspecified; R11.2 Nausea with vomiting, unspecified; F43.10 Post-traumatic stress disorder, unspecified; F41.9 Anxiety disorder, unspecified; E66.01 Morbid (severe) obesity due to excess calories; Z86.16 Personal history of COVID-19
CPT/HCPCS: 36415; 80053; 83690; 85025; 99284; J2405; J7030

== ENCOUNTER 2021-08-05 07:36 | Inpatient (IN) | payer OTHER ==
[~2021-08-05] VITALS: Ht 162.6 cm; Wt 95.3 kg
[~2021-08-05 07:36] MED LIST changes: +PEPCID20 MG PO; +REGLAN10 MG PO
[2021-08-05] MEDS ORDERED: SODIUM CHLORIDE 0.9% 1000ML 1,000 ML IV STA (07:45)
[2021-08-05] MEDS ORDERED: Morphine 4mg Syringe 4 MG/ML INJ IV STA (07:45)
[2021-08-05] MEDS ORDERED: ONDANSETRON HCL INJ 2MG/ML 2ML 2 MG/ML VIAL IV STA (07:45)
[2021-08-05 08:17] LABS: BASOPHILS # (AUTO) 0.1 (0.0-0.1); BASOPHILS % 0.6 % (0.0-1.0); EOSINOPHILS # (AUTO) 0.2 (0.0-0.4); EOSINOPHILS % 1.9 % (0.0-6.0); HEMATOCRIT 45.4 % (34.2-44.1); HEMOGLOBIN 15.2 g/dL (12.0-16.0); LYMPHOCYTES # (AUTO) 2.3 (1.0-3.2); LYMPHOCYTES % 28.1 % (18.0-39.1); MEAN CORPUSCULAR HEMOGLOBIN 29.5 pg (28-32); MEAN CORPUSCULAR HGB CONC 33.5 g/dL (31-35); MONOCYTES # (AUTO) 0.4 (0.2-0.8); MONOCYTES % 5.1 % (4.4-11.3); NEUTROPHILS # (AUTO) 5.3 (2.1-6.9); NEUTROPHILS % 64.1 % (38.7-80.0); PLATELET COUNT 300 x10e3/uL (140-360); RED BLOOD COUNT 5.16 x10e6/uL (3.6-5.1); RED CELL DISTRIBUTION WIDTH 13.5 % (11.7-14.4)
[2021-08-05 08:30] LABS: INR 0.88; PROTHROMBIN TIME 12.8 seconds (11.9-14.5)
[2021-08-05 08:31] LABS: PARTIAL THROMBOPLASTIN TIME 27.5 seconds (23.8-35.5)
[2021-08-05 08:40] LABS: ALANINE AMINOTRANSFERASE 18 IU/L (0-55); ALBUMIN 4.1 g/dL (3.5-5.0); ALBUMIN/GLOBULIN RATIO 1.3 (0.8-2.0); ALKALINE PHOSPHATASE 94 IU/L (40-150); AMYLASE 72 U/L (25-125); ANION GAP 14.4 mmol/L (8-16); BLOOD UREA NITROGEN 9 mg/dL (7-26); BUN/CREATININE RATIO 11 (6-25); CALCIUM 9.8 mg/dL (8.4-10.2); CARBON DIOXIDE 27 mmol/L (22-29); CHLORIDE 101 mmol/L (98-107); CREATINE KINASE 74 IU/L (29-168); CREATININE, SERUM 0.83 mg/dL (0.57-1.11); EST GLOMERULAR FILTRATION RATE 75 ML/MIN (60-); GLUCOSE 121 mg/dL (74-118); LIPASE 33 U/L (8-78); MAGNESIUM 1.6 MG/DL (1.3-2.1); POTASSIUM 3.4 mmol/L (3.5-5.1); SODIUM 139 mmol/L (136-145)
[2021-08-05] MEDS ORDERED: HYDROMORPHONE 1MG/1ML INJ IV STA (09:48)
[2021-08-05] MEDS ORDERED: PROMETHAZINE HCL (IM) 25 MG/ML VIAL IM PRN (10:00)
[2021-08-05] MEDS: SODIUM CHLORIDE 0.9% 1000ML 1,000 ML IV SCH ×2 (11:45→18:00)
[2021-08-05 12:24] VITALS: BP 123/75
[2021-08-05] MEDS ORDERED: LORAZEPAM INJ 2 MG/ML VIAL IV PRN (12:30)
[2021-08-05] MEDS: HYDROMORPHONE 1MG/1ML INJ IV PRN ×3 (13:30→21:40)
[2021-08-05] MEDS: ONDANSETRON HCL INJ 2MG/ML 2ML 2 MG/ML VIAL IV PRN (19:30)
[2021-08-05 19:55] VITALS: BP 122/74
[2021-08-05 22:35] VITALS: BP 122/74
[2021-08-06 00:23] VITALS: BP 103/85
[2021-08-06] MEDS: SODIUM CHLORIDE 0.9% 1000ML 1,000 ML IV SCH ×2 (02:30→12:14)
[2021-08-06] MEDS: HYDROMORPHONE 1MG/1ML INJ IV PRN ×4 (02:40→15:23)
[2021-08-06] MEDS ORDERED: SODIUM CHLORIDE 0.9% 50ML 50 ML ONE (02:55)
[2021-08-06 05:21] VITALS: BP 104/64
[2021-08-06 05:45] LABS: BASOPHILS % 0.8 % (0.0-1.0); EOSINOPHILS # (AUTO) 0.1 (0.0-0.4); EOSINOPHILS % 2.8 % (0.0-6.0); HEMATOCRIT 40.6 % (34.2-44.1); HEMOGLOBIN 13.5 g/dL (12.0-16.0); LYMPHOCYTES # (AUTO) 2.2 (1.0-3.2); LYMPHOCYTES % 43.6 % (18.0-39.1); MEAN CORPUSCULAR HEMOGLOBIN 29.7 pg (28-32); MEAN CORPUSCULAR HGB CONC 33.3 g/dL (31-35); MEAN CORPUSCULAR VOLUME 89.2 fL (81-99); MONOCYTES # (AUTO) 0.4 (0.2-0.8); MONOCYTES % 7.3 % (4.4-11.3); NEUTROPHILS # (AUTO) 2.2 (2.1-6.9); NEUTROPHILS % 45.3 % (38.7-80.0); PLATELET COUNT 248 x10e3/uL (140-360); RED BLOOD COUNT 4.55 x10e6/uL (3.6-5.1); RED CELL DISTRIBUTION WIDTH 13.5 % (11.7-14.4)
[2021-08-06 06:07] LABS: ALBUMIN 3.1 g/dL (3.5-5.0); ALBUMIN/GLOBULIN RATIO 1.2 (0.8-2.0); CALCIUM 8.4 mg/dL (8.4-10.2); CREATININE, SERUM 0.78 mg/dL (0.57-1.11)
[2021-08-06] MEDS: ONDANSETRON HCL INJ 2MG/ML 2ML 2 MG/ML VIAL IV PRN ×3 (07:05→15:23)
[2021-08-06 07:56] VITALS: BP 136/75
[2021-08-06 08:56] VITALS: BP 124/87
[2021-08-06] MEDS: CHOLESTYRAMINE 4 GM PACKET PO SCH ×2 (09:12→15:23)
[2021-08-06 09:21] LABS: CHOL/HDL RATIO 4.1 (3.0-3.6)
[2021-08-06] MEDS: SUCRALFATE 1 GM TAB PO SCH ×2 (11:34→15:40)
[2021-08-06] MEDS ORDERED: PROPOFOL IV EMULSION 10 MG/ML 20 ML VIAL ONE (12:53)
[2021-08-06] MEDS ORDERED: LIDOCAINE HCL 2% LOCAL INJ 5 ML SDV VIAL INJ ONE (12:53)
[2021-08-06] MEDS ORDERED: FENTANYL CITRATE/PF 100MCG/2 ML INJ ONE (13:18)
[2021-08-06] MEDS ORDERED: MIDAZOLAM HCL 2 MG/2 ML VIAL ONE (13:18)
[2021-08-06] MEDS ORDERED: ACETAMINOPHEN 325 MG TAB PO PRN (15:30)
[2021-08-06] MEDS ORDERED: TRAMADOL HCL 50 MG TAB PO PRN (16:00)
[2021-08-06] MEDS ORDERED: CLONAZEPAM 1 MG TAB PO SCH (21:00)
[2021-08-06] MEDS ORDERED: AMITRIPTYLINE HCL 25 MG TAB PO SCH (21:00)
[2021-08-06] MEDS ORDERED: CLONAZEPAM 2 MG PO SCH (21:00)
== END 2021-08-06 18:28 | disposition home or self-care (01) | DRG 440 ==
LOC: ER 07:46 → ERHOLD 08:50 → MED/SURG2 11:05
PROVIDERS: ADMIT Internal Medicine; ATTEND Internal Medicine
PROC: 0DB78ZX Excision of Stomach, Pylorus, Via Natural or Artificial Opening Endoscopic, Diagnostic (ICD-10-PCS; principal; 2021-08-06 08:30)
PROC: 0DB68ZX Excision of Stomach, Via Natural or Artificial Opening Endoscopic, Diagnostic (ICD-10-PCS; principal; 2021-08-06 08:30)
DX: K86.2 Cyst of pancreas (principal); K86.9 Disease of pancreas, unspecified; K76.0 Fatty (change of) liver, not elsewhere classified; E66.9 Obesity, unspecified; Z68.35 Body mass index [BMI] 35.0-35.9, adult; Z90.49 Acquired absence of other specified parts of digestive tract; E87.6 Hypokalemia; F41.9 Anxiety disorder, unspecified; K29.50 Unspecified chronic gastritis without bleeding; F43.10 Post-traumatic stress disorder, unspecified
CPT/HCPCS: 36415; 43239; 76705; 80053; 80061; 82150; 82550; 82553; 83036; 83690; 83735; 84484; 85025; 85610; 85730; 88305; 88312; 93005; 99284; J1170; J2001; J2060; J2250; J2270; J2405; J2550; J3010; J7030; U0002

== ENCOUNTER 2021-09-11 06:03 | Observation (INO) | payer OTHER ==
[~2021-09-11] VITALS: Ht 162.6 cm; Wt 99.3 kg
[2021-09-11] MEDS ORDERED: KETOROLAC TROMETHAMINE 30 MG/ML VIAL IV STA (06:22)
[2021-09-11] MEDS ORDERED: ONDANSETRON HCL INJ 2MG/ML 2ML 2 MG/ML VIAL IV STA (06:22)
[2021-09-11 06:49] LABS: BASOPHILS % 0.3 % (0.0-1.0); EOSINOPHILS % 0.2 % (0.0-6.0); HEMATOCRIT 43.3 % (34.2-44.1); HEMOGLOBIN 14.6 g/dL (12.0-16.0); LYMPHOCYTES # (AUTO) 1.7 (1.0-3.2); MEAN CORPUSCULAR HEMOGLOBIN 29.5 pg (28-32); MEAN CORPUSCULAR HGB CONC 33.7 g/dL (31-35); MEAN CORPUSCULAR VOLUME 87.5 fL (81-99); MONOCYTES # (AUTO) 0.6 (0.2-0.8); MONOCYTES % 4.9 % (4.4-11.3); NEUTROPHILS % 79.2 % (38.7-80.0); PLATELET COUNT 325 x10e3/uL (140-360); RED BLOOD COUNT 4.95 x10e6/uL (3.6-5.1); RED CELL DISTRIBUTION WIDTH 13.3 % (11.7-14.4)
[2021-09-11 07:00] LABS: CLARITY,URINE CLEAR (CLEAR); COLOR,URINE YELLOW (YELLOW); KETONES,URINE NEGATIVE (NEGATIVE); LEUKOCYTE ESTERASE ,URINE TRACE (NEGATIVE); NITRITE,URINE NEGATIVE (NEGATIVE); PROTEIN,URINE DIPSTICK NEGATIVE (NEGATIVE); URINE UROBILINOGEN 0.2 mg/dL (0.2 - 1)
[2021-09-11 07:15] LABS: BACTERIA,URINE FEW /HPF; EPITHELIAL CELLS,URINE MODERATE /LPF; RBC,URINE 0-5 /HPF (0-5); WBC,URINE (MAN) 0-5 /HPF (0-5)
[2021-09-11] MEDS ORDERED: Morphine 4mg Syringe 4 MG/ML INJ IV ONE (07:45)
[2021-09-11 08:00] LABS: ALBUMIN 3.8 g/dL (3.5-5.0); ALBUMIN/GLOBULIN RATIO 1.1 (0.8-2.0); ANION GAP 12.9 mmol/L (8-16); CALCIUM 9.3 mg/dL (8.4-10.2); CREATININE, SERUM 0.84 mg/dL (0.57-1.11); POTASSIUM 3.9 mmol/L (3.5-5.1)
[2021-09-11 08:06] LABS: CLARITY,URINE SL CLOUDY (CLEAR); COLOR,URINE YELLOW (YELLOW)
[2021-09-11 08:07] LABS: KETONES,URINE NEGATIVE (NEGATIVE); LEUKOCYTE ESTERASE ,URINE NEGATIVE (NEGATIVE); NITRITE,URINE NEGATIVE (NEGATIVE); PROTEIN,URINE DIPSTICK NEGATIVE (NEGATIVE); URINE UROBILINOGEN 0.2 mg/dL (0.2 - 1)
[2021-09-11 08:20] LABS: BACTERIA,URINE RARE /HPF; EPITHELIAL CELLS,URINE FEW /LPF; RBC,URINE 0-5 /HPF (0-5); WBC,URINE (MAN) 0-5 /HPF (0-5)
[2021-09-11 08:21] LABS: CALCIUM OXALATE CRYSTALS,UR FEW (FEW)
[2021-09-11] MEDS ORDERED: ONDANSETRON HCL INJ 2MG/ML 2ML 2 MG/ML VIAL IV PRN (08:45)
[2021-09-11 10:52] VITALS: BP 127/63
[2021-09-11] MEDS: SODIUM CHLORIDE 0.9% 1000ML 1,000 ML IV SCH ×2 (11:45→18:25)
[2021-09-11] MEDS: Morphine 2mg Syringe 2 MG/ML SYR IV PRN ×2 (11:45→15:15)
[2021-09-11] MEDS ORDERED: FAMOTIDINE 20 MG TAB PO SCH (17:00)
[2021-09-11] MEDS ORDERED: HYDROMORPHONE 1MG/1ML INJ IV ONE (18:15)
[2021-09-11] MEDS ORDERED: KETOROLAC TROME10 MG PO (19:00)
[2021-09-11 20:26] VITALS: BP 129/92
[2021-09-11] MEDS ORDERED: AMITRIPTYLINE HCL 25 MG TAB PO SCH (21:00)
[2021-09-11] MEDS ORDERED: DIAZEPAM 5 MG TAB PO SCH (21:00)
[2021-09-12] MEDS ORDERED: SENNOSIDES 8.6 MG TAB PO SCH (09:00)
[2021-09-12] MEDS ORDERED: DOCUSATE SODIUM 100 MG CAP PO SCH (09:00)
== END 2021-09-11 20:51 | disposition home or self-care (01) ==
LOC: ER 06:09 → ERHOLD 08:38 → MED/SURG2 09:42
PROVIDERS: ADMIT Internal Medicine; ATTEND Internal Medicine
DX: N20.0 Calculus of kidney (principal); N28.1 Cyst of kidney, acquired; E66.9 Obesity, unspecified; Z68.37 Body mass index [BMI] 37.0-37.9, adult; Z88.1 Allergy status to other antibiotic agents; Z88.5 Allergy status to narcotic agent; Z88.2 Allergy status to sulfonamides; Z88.8 Allergy status to other drugs, medicaments and biological substances; Z20.822 Contact with and (suspected) exposure to COVID-19
CPT/HCPCS: 36415; 74176; 80053; 81001; 81025; 85025; 87086; 87186; 99284; G0378; J1170; J1885; J2270 ×2; J2405; J7030; U0002

== ENCOUNTER 2021-10-08 07:19 | Emergency (ER) | payer OTHER ==
[~2021-10-08] VITALS: Ht 162.6 cm; Wt 99.3 kg
[2021-10-08] MEDS ORDERED: SODIUM CHLORIDE 0.9% 1000ML 1,000 ML IV STA (07:35)
[2021-10-08] MEDS ORDERED: FENTANYL CITRATE/PF 100MCG/2 ML INJ IV PRN (07:45)
[2021-10-08] MEDS ORDERED: ONDANSETRON HCL INJ 2MG/ML 2ML 2 MG/ML VIAL IV PRN (07:45)
[2021-10-08 07:50] LABS: BASOPHILS % 0.7 % (0.0-1.0); EOSINOPHILS # (AUTO) 0.2 (0.0-0.4); EOSINOPHILS % 2.7 % (0.0-6.0); LYMPHOCYTES # (AUTO) 2.2 (1.0-3.2); MEAN CORPUSCULAR HEMOGLOBIN 29.5 pg (28-32); MEAN CORPUSCULAR HGB CONC 34.1 g/dL (31-35); MEAN CORPUSCULAR VOLUME 86.6 fL (81-99); MONOCYTES # (AUTO) 0.3 (0.2-0.8); MONOCYTES % 5.7 % (4.4-11.3); NEUTROPHILS # (AUTO) 3.1 (2.1-6.9); NEUTROPHILS % 52.7 % (38.7-80.0); PLATELET COUNT 295 x10e3/uL (140-360); RED BLOOD COUNT 5.08 x10e6/uL (3.6-5.1); RED CELL DISTRIBUTION WIDTH 13.5 % (11.7-14.4)
[2021-10-08 08:14] LABS: CLARITY,URINE CLEAR (CLEAR); COLOR,URINE YELLOW (YELLOW); LEUKOCYTE ESTERASE ,URINE TRACE (NEGATIVE)
[2021-10-08 08:15] LABS: KETONES,URINE NEGATIVE (NEGATIVE); NITRITE,URINE NEGATIVE (NEGATIVE); PROTEIN,URINE DIPSTICK NEGATIVE (NEGATIVE); URINE UROBILINOGEN 0.2 mg/dL (0.2 - 1)
[2021-10-08 08:21] LABS: BACTERIA,URINE MODERATE /HPF; EPITHELIAL CELLS,URINE MODERATE /LPF; RBC,URINE 0-5 /HPF (0-5); TRANSITIONAL EPI CELLS,URINE RARE
[2021-10-08 08:25] LABS: ALBUMIN 3.9 g/dL (3.5-5.0); ALBUMIN/GLOBULIN RATIO 1.4 (0.8-2.0); ANION GAP 11.6 mmol/L (8-16); CALCIUM 8.5 mg/dL (8.4-10.2); CREATININE, SERUM 0.83 mg/dL (0.57-1.11); POTASSIUM 3.6 mmol/L (3.5-5.1)
[2021-10-08] MEDS ORDERED: KETOROLAC TROMETHAMINE 30 MG/ML VIAL IV STA (08:37)
[2021-10-08] MEDS ORDERED: PROMETHAZINE 12.5MG/ NACL 0.9% 12.5 MG/50 ML BAG IV ONE (08:45)
[2021-10-08] MEDS ORDERED: MACROBID 100 M100 MG PO (09:13)
[2021-10-08 10:17] VITALS: BP 129/76
[2021-10-08] MEDS ORDERED: DONNATAL/LIDOCAINE/MAALOX 30 ML SUSP PO SCH (15:00)
== END 2021-10-08 10:20 | disposition home or self-care (01) ==
LOC: ER 07:43
DX: R10.12 Left upper quadrant pain (principal); N39.0 Urinary tract infection, site not specified; R11.2 Nausea with vomiting, unspecified
CPT/HCPCS: 36415; 74176; 80053; 81001; 83690; 85025; 99284; J1885; J2405; J2550; J3010; J7030

== ENCOUNTER 2022-03-03 07:39 | Emergency (ER) | payer OTHER ==
[~2022-03-03] VITALS: Ht 162.6 cm; Wt 99.3 kg
[2022-03-03] MEDS ORDERED: ONDANSETRON HCL INJ 2MG/ML 2ML 2 MG/ML VIAL IV STA (07:49)
[2022-03-03] MEDS ORDERED: SODIUM CHLORIDE 0.9% 1000ML 1,000 ML IV STA (07:49)
[2022-03-03] MEDS ORDERED: Morphine 4mg INJECTION 4 MG/ML INJ IV STA (07:49)
[2022-03-03 08:15] LABS: BASOPHILS % 0.6 % (0.0-1.0); EOSINOPHILS # (AUTO) 0.1 (0.0-0.4); EOSINOPHILS % 1.7 % (0.0-6.0); HEMATOCRIT 43.1 % (34.2-44.1); HEMOGLOBIN 14.6 g/dL (12.0-16.0); LYMPHOCYTES # (AUTO) 1.9 (1.0-3.2); LYMPHOCYTES % 29.7 % (18.0-39.1); MEAN CORPUSCULAR HEMOGLOBIN 29.9 pg (28-32); MEAN CORPUSCULAR HGB CONC 33.9 g/dL (31-35); MEAN CORPUSCULAR VOLUME 88.3 fL (81-99); MONOCYTES # (AUTO) 0.3 (0.2-0.8); NEUTROPHILS # (AUTO) 4.1 (2.1-6.9); NEUTROPHILS % 63.8 % (38.7-80.0); PLATELET COUNT 270 x10e3/uL (140-360); RED BLOOD COUNT 4.88 x10e6/uL (3.6-5.1); RED CELL DISTRIBUTION WIDTH 13.4 % (11.7-14.4)
[2022-03-03 08:18] LABS: CLARITY,URINE CLOUDY (CLEAR); COLOR,URINE YELLOW (YELLOW)
[2022-03-03 08:19] LABS: KETONES,URINE TRACE (NEGATIVE); LEUKOCYTE ESTERASE ,URINE TRACE (NEGATIVE); NITRITE,URINE NEGATIVE (NEGATIVE); PROTEIN,URINE DIPSTICK NEGATIVE (NEGATIVE); URINE UROBILINOGEN 2 mg/dL (0.2 - 1)
[2022-03-03 08:30] LABS: INR 0.92; PROTHROMBIN TIME 13.2 seconds (11.9-14.5)
[2022-03-03 08:31] LABS: ALANINE AMINOTRANSFERASE 11 IU/L (0-55); ALBUMIN/GLOBULIN RATIO 1.4 (0.8-2.0); ALKALINE PHOSPHATASE 70 IU/L (40-150); ANION GAP 12.1 mmol/L (8-16); BLOOD UREA NITROGEN 8 mg/dL (7-26); BUN/CREATININE RATIO 10 (6-25); CARBON DIOXIDE 24 mmol/L (22-29); CHLORIDE 108 mmol/L (98-107); CREATINE KINASE 73 IU/L (29-168); CREATININE, SERUM 0.81 mg/dL (0.57-1.11); GLUCOSE 109 mg/dL (74-118); LIPASE 32 U/L (8-78); MAGNESIUM 1.9 MG/DL (1.3-2.1); PARTIAL THROMBOPLASTIN TIME 30.5 seconds (23.8-35.5); POTASSIUM 3.1 mmol/L (3.5-5.1); SODIUM 141 mmol/L (136-145)
[2022-03-03 08:43] LABS: BACTERIA,URINE MANY /HPF; CALCIUM OXALATE CRYSTALS,UR FEW (FEW); EPITHELIAL CELLS,URINE MANY /LPF; RBC,URINE 0-5 /HPF (0-5); WBC,URINE (MAN) 21-50 /HPF (0-5)
[2022-03-03] MEDS ORDERED: DICYCLOMINE HCL20 MG PO (10:30)
[2022-03-03] MEDS ORDERED: ONDANSETRON ODT4 MG PO (10:30)
[2022-03-03] MEDS ORDERED: CIPRO250 MG PO (10:31)
[2022-03-03] MEDS ORDERED: HYDROCODON-ACE1 EAC9 PO (10:31)
[2022-03-03] MEDS ORDERED: IOPAMIDOL 370 MG/ML 100 ML INFUS..BTL INJ ONE (10:50)
[2022-03-03 11:17] VITALS: BP 107/58
== END 2022-03-03 11:20 | disposition home or self-care (01) ==
LOC: ER 07:42
DX: R10.13 Epigastric pain (principal); R11.2 Nausea with vomiting, unspecified; N39.0 Urinary tract infection, site not specified; R55 Syncope and collapse; K21.9 Gastro-esophageal reflux disease without esophagitis; F43.10 Post-traumatic stress disorder, unspecified; E66.01 Morbid (severe) obesity due to excess calories; F17.210 Nicotine dependence, cigarettes, uncomplicated
CPT/HCPCS: 36415; 70450; 71045; 72125; 73030; 74177; 80053; 81001; 82550; 82553; 83690; 83735; 83880; 84484; 85025; 85610; 85730; 87086; 87186; 93005; 99284; C9113; J2270; J2405; J7030; Q9967

== ENCOUNTER 2022-03-05 10:04 | Emergency (ER) | payer OTHER ==
[~2022-03-05] VITALS: Ht 162.6 cm; Wt 99.3 kg
[~2022-03-05 10:04] MED LIST changes: +CIPRO250 MG PO; +DICYCLOMINE HCL20 MG PO; +ONDANSETRON ODT4 MG PO
[2022-03-05] MEDS ORDERED: SODIUM CHLORIDE 0.9% 1000ML 1,000 ML IV SCH (10:25)
[2022-03-05] MEDS ORDERED: SODIUM CHLORIDE FLUSH 10 ML SYR IV PRN (10:25)
[2022-03-05] MEDS ORDERED: FAMOTIDINE 20 MG/2 ML VIAL IV STA (10:25)
[2022-03-05] MEDS ORDERED: ONDANSETRON HCL INJ 2MG/ML 2ML 2 MG/ML VIAL IV STA (10:25)
[2022-03-05] MEDS ORDERED: DONNATAL/LIDOCAINE/MAALOX 30 ML SUSP PO ONE (11:00)
[2022-03-05 11:05] LABS: AMPHETAMINES SCREEN,URINE NEGATIVE (NEGATIVE); BENZODIAZEPINES SCREEN,URINE POSITIVE (NEGATIVE); PHENCYCLIDINE SCREEN,URINE NEGATIVE (NEGATIVE)
[2022-03-05 11:07] LABS: BASOPHILS % 0.6 % (0.0-1.0); EOSINOPHILS # (AUTO) 0.1 (0.0-0.4); EOSINOPHILS % 0.8 % (0.0-6.0); HEMATOCRIT 41.6 % (34.2-44.1); HEMOGLOBIN 14.4 g/dL (12.0-16.0); LYMPHOCYTES # (AUTO) 1.3 (1.0-3.2); LYMPHOCYTES % 20.4 % (18.0-39.1); MEAN CORPUSCULAR HEMOGLOBIN 29.8 pg (28-32); MEAN CORPUSCULAR HGB CONC 34.6 g/dL (31-35); MONOCYTES # (AUTO) 0.3 (0.2-0.8); MONOCYTES % 4.1 % (4.4-11.3); NEUTROPHILS # (AUTO) 4.7 (2.1-6.9); NEUTROPHILS % 73.6 % (38.7-80.0); PLATELET COUNT 266 x10e3/uL (140-360); RED BLOOD COUNT 4.84 x10e6/uL (3.6-5.1); RED CELL DISTRIBUTION WIDTH 13.5 % (11.7-14.4)
[2022-03-05 11:12] LABS: INR 0.9
[2022-03-05 11:13] LABS: PARTIAL THROMBOPLASTIN TIME 31.5 seconds (23.8-35.5)
[2022-03-05 11:14] LABS: ALBUMIN/GLOBULIN RATIO 1.5 (0.8-2.0); ANION GAP 14.9 mmol/L (8-16); CALCIUM 9.2 mg/dL (8.4-10.2); CREATININE, SERUM 0.76 mg/dL (0.57-1.11); POTASSIUM 3.9 mmol/L (3.5-5.1)
[2022-03-05 11:15] LABS: CLARITY,URINE SL CLOUDY (CLEAR); COLOR,URINE YELLOW (YELLOW); KETONES,URINE NEGATIVE (NEGATIVE); LEUKOCYTE ESTERASE ,URINE NEGATIVE (NEGATIVE); NITRITE,URINE NEGATIVE (NEGATIVE); PROTEIN,URINE DIPSTICK NEGATIVE (NEGATIVE); URINE UROBILINOGEN 1 mg/dL (0.2 - 1)
[2022-03-05 11:25] LABS: LIPASE 45 U/L (8-78)
[2022-03-05 11:36] LABS: BACTERIA,URINE MODERATE /HPF; EPITHELIAL CELLS,URINE MODERATE /LPF; RBC,URINE 0-5 /HPF (0-5)
[2022-03-05 11:38] LABS: CALCIUM OXALATE CRYSTALS,UR FEW (FEW)
[2022-03-05] MEDS ORDERED: PHENERGAN SUPP25 MG RC (11:40)
[2022-03-05 11:56] VITALS: BP 132/84
== END 2022-03-05 12:02 | disposition home or self-care (01) ==
LOC: ER 10:20
DX: R11.2 Nausea with vomiting, unspecified (principal); F12.90 Cannabis use, unspecified, uncomplicated; N39.0 Urinary tract infection, site not specified; R10.13 Epigastric pain
CPT/HCPCS: 36415; 80053; 80307; 81001; 83690; 84702; 85025; 85610; 85730; 99284; J2405; J7030

== ENCOUNTER 2022-03-11 07:43 | Emergency (ER) | payer OTHER ==
[~2022-03-11 07:43] MED LIST changes: +PHENERGAN SUPP25 MG RC
== END 2022-03-11 08:00 | disposition short-term general hospital (02) ==
LOC: ER 07:51
DX: R10.9 Unspecified abdominal pain (principal)

== ENCOUNTER 2024-08-15 10:24 | Inpatient (IN) | payer OTHER ==
[~2024-08-15] VITALS: Ht 162.6 cm; Wt 99.3 kg
[2024-08-15 10:31] VITALS: PULSE 89; RESP 13; TEMP 97.5
[2024-08-15 11:02] LABS: BASOPHILS # (AUTO) 0.1 (0.0-0.1); BASOPHILS % 0.7 % (0.0-1.0); EOSINOPHILS % 0.5 % (0.0-6.0); HEMATOCRIT 40.5 % (34.2-44.1); HEMOGLOBIN 13.8 g/dL (12.0-16.0); LYMPHOCYTES # (AUTO) 1.4 (1.0-3.2); LYMPHOCYTES % 18.4 % (18.0-39.1); MEAN CORPUSCULAR HEMOGLOBIN 30.3 pg (28-32); MEAN CORPUSCULAR HGB CONC 34.1 g/dL (31-35); MONOCYTES # (AUTO) 0.3 (0.2-0.8); MONOCYTES % 3.4 % (4.4-11.3); NEUTROPHILS # (AUTO) 5.8 (2.1-6.9); NEUTROPHILS % 76.7 % (38.7-80.0); PLATELET COUNT 299 x10e3/uL (140-360); RED BLOOD COUNT 4.55 x10e6/uL (3.6-5.1); RED CELL DISTRIBUTION WIDTH 13.1 % (11.7-14.4); WHITE BLOOD COUNT 7.56 x10e3/uL (4.8-10.8)
[2024-08-15 11:14] LABS: BILIRUBIN,URINE NEGATIVE (NEGATIVE); CLARITY,URINE CLEAR (CLEAR); COLOR,URINE YELLOW (YELLOW); GLUCOSE, URINE NEGATIVE (NEGATIVE); KETONES,URINE NEGATIVE (NEGATIVE); LEUKOCYTE ESTERASE ,URINE TRACE (NEGATIVE); NITRITE,URINE NEGATIVE (NEGATIVE); PH,URINE 6 (5 - 7); PROTEIN,URINE DIPSTICK NEGATIVE (NEGATIVE); URINE UROBILINOGEN 0.2 mg/dL (0.2 - 1)
[2024-08-15 11:37] LABS: BACTERIA,URINE MODERATE /HPF; EPITHELIAL CELLS,URINE RARE /LPF; RBC,URINE 0-5 /HPF (0-5)
[2024-08-15] MEDS: ONDANSETRON HCL INJ 2MG/ML 2ML 2 MG/ML VIAL IV STA (11:49)
[2024-08-15] MEDS: KETOROLAC TROMETHAMINE 30 MG/ML VIAL IV STA (11:49)
[2024-08-15 11:56] LABS: ALBUMIN 3.8 g/dL (3.5-5.0); ALBUMIN/GLOBULIN RATIO 1.4 (0.8-2.0); ANION GAP 14.1 mmol/L (8-16); BILIRUBIN,TOTAL 0.4 mg/dL (0.2-1.2); CALCIUM 9.3 mg/dL (8.4-10.2); CREATININE, SERUM 0.8 mg/dL (0.57-1.11); POTASSIUM 4.1 mmol/L (3.5-5.1); TOTAL PROTEIN 6.5 g/dL (6.5-8.1)
[2024-08-15] MEDS ORDERED: EPHEDRINE SULFATE INJ 50 MG/ML VIAL ONE (12:14)
[2024-08-15] MEDS ORDERED: GLYCOPYRROLATE INJ 0.2 MG/ML VIAL ONE (12:14)
[2024-08-15 12:49] VITALS: PULSE 89; RESP 18; O2SAT 98
[2024-08-15] MEDS: CIPROFLOXACIN 400 MG/D5W 200ML 200 ML IV SCH (13:25)
[2024-08-15] MEDS: SODIUM CHLORIDE 0.9% 1000ML 1,000 ML IV SCH (13:25)
[2024-08-15] MEDS: Morphine 4mg INJECTION 4 MG/ML INJ IV PRN (13:26)
[2024-08-15 16:00] VITALS: BP 166/74; PULSE 89; RESP 18; TEMP 98.6; O2SAT 98
[2024-08-15 17:12] VITALS: BP 127/77; PULSE 80; RESP 19; TEMP 98.1; O2SAT 100
[2024-08-15] MEDS: ONDANSETRON HCL INJ 2MG/ML 2ML 2 MG/ML VIAL IV PRN (18:16)
[2024-08-15 20:37] VITALS: BP 127/77; PULSE 80; RESP 19; TEMP 98.1; O2SAT 100
[2024-08-15 20:48] VITALS: PULSE 80; RESP 18; O2SAT 100
[2024-08-16] VITALS (9 sets, daily range): BP systolic 107–134; BP diastolic 55–82; PULSE 40–67; RESP 17–18; TEMP 98–99.3; O2SAT 96–100
[2024-08-16 06:03] LABS: BASOPHILS # (AUTO) 0.1 (0.0-0.1); BASOPHILS % 0.9 % (0.0-1.0); EOSINOPHILS # (AUTO) 0.1 (0.0-0.4); EOSINOPHILS % 2.4 % (0.0-6.0); HEMATOCRIT 37.3 % (34.2-44.1); HEMOGLOBIN 12.3 g/dL (12.0-16.0); LYMPHOCYTES # (AUTO) 2.5 (1.0-3.2); LYMPHOCYTES % 45.3 % (18.0-39.1); MEAN CORPUSCULAR HEMOGLOBIN 29.9 pg (28-32); MEAN CORPUSCULAR VOLUME 90.8 fL (81-99); MONOCYTES # (AUTO) 0.3 (0.2-0.8); MONOCYTES % 5.8 % (4.4-11.3); NEUTROPHILS # (AUTO) 2.5 (2.1-6.9); NEUTROPHILS % 45.4 % (38.7-80.0); PLATELET COUNT 234 x10e3/uL (140-360); RED BLOOD COUNT 4.11 x10e6/uL (3.6-5.1); RED CELL DISTRIBUTION WIDTH 13.1 % (11.7-14.4); WHITE BLOOD COUNT 5.52 x10e3/uL (4.8-10.8)
[2024-08-16 06:30] LABS: CALCIUM 7.9 mg/dL (8.4-10.2); CREATININE, SERUM 0.9 mg/dL (0.57-1.11)
[2024-08-16] MEDS ORDERED: DICYCLOMINE HCL 20 MG TAB PO PRN (10:00)
[2024-08-16] MEDS: CELECOXIB 200 MG CAP PO SCH (10:40)
[2024-08-16] MEDS: KETOROLAC TROMETHAMINE 30 MG/ML VIAL IV ONE (10:41)
[2024-08-16] MEDS: HYDROCODONE/APAP 10MG-325MG TAB PO PRN (12:12)
[2024-08-16] MEDS: FAMOTIDINE 20 MG TAB PO SCH (16:16)
[2024-08-16] MEDS: AMITRIPTYLINE HCL 25 MG TAB PO SCH (20:48)
[2024-08-16] MEDS: DIAZEPAM 5 MG TAB PO SCH (20:49)
[2024-08-16] MEDS: KETOROLAC TROMETHAMINE 30 MG/ML VIAL IV PRN (20:56)
[2024-08-17] VITALS (10 sets, daily range): BP systolic 118–158; BP diastolic 53–87; PULSE 51–91; RESP 16–18; TEMP 97.5–98.1; O2SAT 96–99
[2024-08-17 04:09] LABS: CALCIUM 8.2 mg/dL (8.7-10.2)
[2024-08-17] MEDS: GABAPENTIN 100 MG CAP PO SCH (09:19)
[2024-08-17] MEDS: MEROPENEM 1 GM in SODIUM CHLORIDE 0.9% 100 ML IV SCH (09:28)
[2024-08-17] MEDS: Morphine 4mg INJECTION 4 MG/ML INJ IV PRN (09:28)
[2024-08-17] MEDS: GENTAMICIN 120MG/NS 100ML 100 ML IV STA (11:11)
[2024-08-17] MEDS ORDERED: LIDOCAINE HCL 2% LOCAL INJ 5 ML SDV VIAL INJ ONE (15:39)
[2024-08-17] MEDS ORDERED: FENTANYL CITRATE/PF 100MCG/2 ML INJ ONE (15:39)
[2024-08-17] MEDS ORDERED: SEVOFLURANE INHAL SOLN 250 ML PEN BTL ONE (15:39)
[2024-08-17] MEDS ORDERED: PROPOFOL IV EMULSION 10 MG/ML 20 ML VIAL ONE (15:39)
[2024-08-17] MEDS ORDERED: ACETAMINOPHEN 1000 MG/100 ML 100 ML IV ONE (15:39)
[2024-08-17] MEDS ORDERED: MIDAZOLAM HCL 2 MG/2 ML VIAL ONE (15:50)
[2024-08-17] MEDS ORDERED: DEXAMETHASONE SOD PHOS INJ 4 MG/ML SDV ONE (16:34)
[2024-08-17] MEDS ORDERED: ONDANSETRON HCL INJ 2MG/ML 2ML 2 MG/ML VIAL ONE (16:34)
[2024-08-17] MEDS ORDERED: ESMOLOL HCL 100MG/10ML 10 MG/ML VIAL ONE (16:34)
[2024-08-17] MEDS ORDERED: PHENAZOPYRIDINE HCL 100 MG TAB PO PRN (17:00)
[2024-08-17] MEDS: FENTANYL CITRATE/PF 100MCG/2 ML INJ ONE (17:11)
[2024-08-17] MEDS: PHENAZOPYRIDINE HCL 100 MG TAB ONE (17:16)
== END 2024-08-17 18:08 | disposition left against medical advice (07) | DRG 660 ==
LOC: ER 10:27 → ERHOLD 12:30 → MED/SURG2 14:53
PROVIDERS: ADMIT Internal Medicine; ATTEND Internal Medicine
PROC: BT141ZZ Fluoroscopy of Kidneys, Ureters and Bladder using Low Osmolar Contrast (ICD-10-PCS; 2024-08-17)
PROC: 0UJH7ZZ Inspection of Vagina and Cul-de-sac, Via Natural or Artificial Opening (ICD-10-PCS; 2024-08-17)
PROC: 0TC78ZZ Extirpation of Matter from Left Ureter, Via Natural or Artificial Opening Endoscopic (ICD-10-PCS; principal; 2024-08-17 16:14)
PROC: 0T778DZ Dilation of Left Ureter with Intraluminal Device, Via Natural or Artificial Opening Endoscopic (ICD-10-PCS; 2024-08-17 16:14)
DX: N13.6 Pyonephrosis (principal); Z16.24 Resistance to multiple antibiotics; B96.20 Unspecified Escherichia coli [E. coli] as the cause of diseases classified elsewhere; R31.0 Gross hematuria; Z53.29 Procedure and treatment not carried out because of patient's decision for other reasons; N81.10 Cystocele, unspecified; N36.41 Hypermobility of urethra; N81.6 Rectocele; E66.01 Morbid (severe) obesity due to excess calories; Z68.37 Body mass index [BMI] 37.0-37.9, adult; K21.9 Gastro-esophageal reflux disease without esophagitis; F41.9 Anxiety disorder, unspecified; F43.10 Post-traumatic stress disorder, unspecified; Z71.81 Spiritual or religious counseling; Z79.899 Other long term (current) drug therapy
CPT/HCPCS: 36415; 74176; 74420; 80048; 80053; 81001; 83970; 84550; 85025; 87086; 87186; 88300; 94799; 99284; C1769; C2617; J1100; J1580; J1885; J2003; J2185; J2250; J2270; J2405; J2470; J7030; J7050